=== PATIENT | male | born 1980 | race Caucasian/White ===

== ENCOUNTER → 2021-03-03 11:00 | Outpatient (CLI) | payer OTHER, SELFPAY | PROVIDERS: Visit Provider Nurse Practitioner | DX: U07.1 COVID-19 (principal) | CPT/HCPCS: C9803; U0003; U0005 ==

== ENCOUNTER 2023-01-05 10:06 | Emergency (ER) | payer OTHER, SELFPAY ==
[2023-01-05 10:20] VITALS: BP 160/100; PULSE 100; RESP 18; TEMP 36.8; O2SAT 95; BMI 30.8
--- NOTE | 2023-01-05 10:23 | EXP.UTC ---
Discharge Plan Disposition Patient Disposition: Home, Self-Care Condition: Good Prescriptions Prescriptions: No Action No Known Home Medications Referrals Follow up/Referrals: Provider,Referral, MD [Primary Care Provider] - See instructions Activity Restrictions/Add. Instructions Additional Instructions/Restrictions: If the site starts to bleed again, please return here. Follow up with your primary care provider as we discussed. Make sure you discuss your elevated blood pressure with them when you are there. GO TO THE ER FOR ANY WORSENING SYMPTOMS Clinical Impressions Clinical Impression: Skin lesion Instructions Patient Instructions: Apoplexy Discharge ED Provider: Liu Lopez [facility] [place] HPI General Stated complaint: spot on nose that won't stop bleeding Time Seen by Provider: 01/05/23 10:23 History of Present Illness Provider Complaint: He has a spot on his nose that start out like a pimple 2 days ago. He picked at it and removed the scab. He states that he came in to have it cauterized. Related Data Home Medications Medication Instructions Recorded Confirmed No Known Home Medications 01/05/23 01/05/23 Allergies Allergy/AdvReac Type Severity Reaction Status Date / Time amoxicillin Allergy Verified 01/05/23 09:31 [facility] Disclaimer: The information contained in this section may have been updated after the patient was seen, as this information can be updated by other users. Medical History (Updated 01/05/23 @ 11:00 by Liu Lopez APRN) No pertinent past medical history Surgical History (Updated 01/05/23 @ 09:33 by Hiral Henley MA) No pertinent past surgical history Family History Family/Other No significant family history Social History Smoking Status: Never smoker alcohol intake: current current occupational status: employed Travel in the last 8 weeks: None household members: family housing: house ROS Obtained: Yes All systems reviewed & no additional complaints except as documented Constitutional Constitutional: Denies chills and Denies fever(s) Eyes Eyes: Denies eye discharge ENT Ears, Nose, Mouth, and Throat: Denies dizziness, Denies otalgia and Denies sore throat Cardiovascular Cardiovascular: Denies chest pain Respiratory Respiratory: Denies shortness of breath, Denies chest congestion, Denies cough, Denies stridor and Denies wheezing Gastrointestinal Gastrointestingal: Denies nausea or vomiting Musculoskeletal Musculoskeletal: Reports system reviewed and no additional complaints, except as documented and Denies arthralgias Integumentary/Breasts Skin/Breast: Reports as per HPI Neurologic Neurologic: Denies dizziness and Denies paresthesias Allergic/Immunologic Allergic/Immunologic: Denies wheezing Physical Exam General General appearance: alert and in no apparent distress Head Head exam: atraumatic, normocephalic and normal inspection Eye Eye exam: Present normal appearance, PERRL and EOMI ENT ENT exam: Present normal exam, normal oropharynx, mucous membranes moist, TM's normal bilaterally and normal external ear exam Neck Neck exam: Present normal inspection, full ROM and trachea midline; Absent meningismus or lymphadenopathy Chest Chest inspection: Present normal inspection and symmetric chest wall rise; Absent tenderness Respiratory Respiratory exam: Present normal lung sounds bilaterally; Absent respiratory distress Cardiovascular Cardiovascular exam: Present regular rate and normal rhythm; Absent JVD Abdominal Exam Abdominal exam: Present soft and normal bowel sounds; Absent distention, tenderness or guarding Extremities Exam Extremities exam: Present normal inspection, full ROM and normal capillary refill; Absent calf tenderness Back Exam Back exam: Present normal inspection; Absent tenderness Neurologi
[2023-01-05 11:03] VITALS: BP 160/100; PULSE 100; RESP 18; TEMP 36.8; O2SAT 95
== END 2023-01-05 11:08 | disposition home or self-care (01) ==
PROVIDERS: Emergency Provider Nurse Practitioner Family
DX: L98.9 Disorder of the skin and subcutaneous tissue, unspecified (principal)
CPT/HCPCS: 99203; 99212; G0463

== ENCOUNTER 2024-12-11 14:00 | Outpatient (RCR) | payer OTHER, SELFPAY ==
--- NOTE | 2024-11-25 07:48 | HMH.PTOPEV ---
PT Evaluation Rehab PT Outpatient Evaluation Start: 11/24/24 13:00 Freq: Status: Active Protocol: Document 11/24/24 13:01 KOURTNEY (Rec: 11/24/24 14:17 KOURTNEY [id number]) E-signed By Monica Sandoval, PT Outpatient Therapy Subjective History Subjective History This is an initial PT evaluation for 44 y/o male, Cesar Tay, who presents to [facility] rehab with referral for weakness. Pt is currently on the liver transplant list at . Pt has had weakness complaints for ~3 months. Pt's goal is to get stronger for a possible liver transplant. Pt reports he feels unsteady on his feet especially when getting up in morning. Pt reports 2 falls prior to last hospital admission. Pt reports a general loss in muscle mass and more difficulty standing. Pt reports he has been walking around the house as much as able. Pt reports he was at [facility] for ~1 week after his last hospital admission in which he worked on general strengthening and balance. Pt reports he still needs to work on those deficits. Pt also reports impaired endurance. In regards to lab work, pt does not know his most recent blood work numbers (Hgb, Hct, and platelets). Pt reports he receives blood work tomorrow at and will provide those results prior to first session. Pt reports he is getting and endoscopy and colonoscopy this week as well . 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 Cheif complaint: Impaired strength, endurance, and balance. New diagnosis of No cancer in past 12 months? Chief Complaint Weakness Prior Functional None Limitations Current Functional Lifting,Dressing,Standing,Squatting,Recreation Activity Limitations ,Walking,Stairs,Balance Shoulder/Elbow Eval Shoulder Objective Measurements Shoulder MMT Bilateral Anterior Deltoid 4 Good Strength Grade Upper Trapezius/ 4 Good Levator Scapulae Shoulder Horizontal 4 Good Abduction Strength Grade Shoulder Horizontal 4 Good Adduction Strength Grade Elbow Objective Measurements Hip/Knee Eval Assistive Device Assistive Devices None / NA MMT bilateral Hip Flexion Strength 4- Good- Grade Hip Abduction 4- Good- Strength Grade Hip Adduction 4- Good- Strength Grade Hip Extension 4- Good- Strength Grade Knee Extension 4- Good- Strength Grade Knee Flexion 4- Good- Strength Grade Dynamic Gait Index Test Protocol Gait Level Surface Mild Impairment Query Text: Instructions: Walk at your normal speed from here to the next joaquin (20'). Grading: Joaquin the lowest category that applies. Change in Gait Speed Moderate Impairment Query Text: Instructions: Begin walking at your normal pace (for 5') , when I tell you go , walk as fast as you can (for 5'). When I tell you slow , walk as slowly as you can ( for 5'). Grading: Joaquin the lowest category that applies. Gait with Horizontal Mild Impairment Head Turns Query Text: Instructions: Begin walking at your normal pace. When I tell you to look right , keep walking straight, but turn you head to the right. Keep looking to the right unit I tell you look left , then keep walking straight and turn your head to the left. Keep your head to the left until I tell you look straight , then keep walking straight, but return you head to the center. Grading: Joaquin the lowest category that applies. Gait with Vertical Mild Impairment Head Turns Query Text: Instructions: Begin walking at your normal pace. When I tell you to look up , keep walking staight, but tip your head up. Keep looking up until I tell you to look down , then keep walking straight and tip your head down. Keep your head down until I tell you look straight , then keep walking straight, but return your head to the center. Grading: Joaquin the lowest category that applies. Gait and Pivot Turn Mild Impairment Query Text: Instructions: Begin walking at your normal pace. When I tell you turn and stop , turn as quickly as you can to face the opposite direction and stop. Grading: Joaquin the lowest category that applies. Step Over Obstacle Mild Impairment Query Text: Instructions: Begin walking at your normal speed. When you come to the shoebox, step over it, not around it and keep walking. Grading: Joaquin the lowest category that applies. Step Around Mild Impairment Obstacles Query Text: Instructions: Begin walking at normal speed. When you come to the first cone (about 6' away) , walk around the right side of it. When you come to the second cone (6' past first cone), walk around it to the left. Grading: Joaquin the lowest category that applies. Steps Moderate Impairment Query Text: Instructions: Walk up these stairs as you would at home. At the top, turn around and walk down . Grading: Joaquin the lowest category that applies. Scoring Dynamic Gait Index 14 Score Miscellaneous Dx PT Eval Objective Objective 2 minute walk test: 312 feet/95 meters TU seconds 5xSTS: 15 seconds with UE use. DGI: 14 points without AD Tandem stance: - able to hold bilaterally for 20 seconds with min-no UE support Outpatient Therapy Assessment Impairments Problems/ Impaired Strength,Impaired Endurance,Impaired Transfers Impairmments ,Impaired Gait Pattern,Impaired Walking,Impaired Standing,Impaired Stair Climbing,Impaired Stepping on Uneven Surface,Impaired Squatting,Impaired Recreational Activities,Impaired Balance Prognosis Rehab Potential Good Comment Pt presents with impaired endurance, strength, and gait . Pt would benefit from skilled OP PT to address deficits and achieve goals. PT POC to include BLE/BUE strengthening, aerobic exercise, core strengthening, and balance training. *PT held giving HEP this date d/t awaiting most recent blood lab results. PT to provide HEP at first session once PT has assessed pt's tolerance to therex interventions.* Clinical Impression Consistent with Yes Diagnosis PT Patient Goals PT Patient Goals PT Short Term In 4 weeks, pt will: Patient Goals 1) Verbalize IND with HEP. 2) Improve BLE and BUE strength by 1/5 MMT grade to improve functional strength. 3) Tolerate one 10 min moderate intensity endurance task (ex: bike) 4) Perform 5 x STS in 12 seconds or less 5) Improve DGI by 1 point to improve safety with gait. 6) Verbalize feeling at least 40% stronger since IE 7) Improve 2 min walk test to at least 400ft/121 meters PT [facility] Patient In 8 weeks, pt will: Goals 1) Verbalize adherence with home exercise program to maximize self-maintenance of symptoms upon d/c from PT POC. 2) Improve BLE and BUE strength to 5/5 MMT grade to improve daily functioning. 3) Tolerate one 15 min moderate intensity endurance task (ex: bike) 4) Improve DGI to score of 18 points to improve ambulation safety. 5) Improve TUG time to 12 seconds or less. 6) Verbalize feeling at least 85% improved in strength/ endurance since IE. 7) Improve 2 min walk test to at least 500ft/152meters Outpatient Therapy Plan of Care Treatment Plan May Include Therapeutic Exercise Yes Including Home Exercise Program Neuromuscular Re- Yes education Therapeutic Yes Activities to Return to Previous Functional/Work Level Gait Training Yes ADL/Self Care Yes Education Eval/Re-Eval Yes Frequency Times per week 2x weekly Duration Number of Weeks 6-8 weeks Addendums This patient is a No candidate for social or vocational rehab ? Patient/Guardian Yes verbally acknowledges understanding of treatment program and consents to further treatment? Patient/Guardian Yes verbally acknowledges understanding of diagnosis, prognosis and goals for treatment? Eval Complexity PT Charges 29378 - Moderate Complexity PHYSICIAN CERTIFICATION: I certify the specified therapy services for Cesar Tay are required, authorized, and reviewed every 30 days.
== END 2024-12-11 23:59 | disposition home or self-care (01) ==
LOC: PT 14:00
PROVIDERS: PCP Internal Medicine; Visit Provider Internal Medicine
DX: R53.1 Weakness (principal)
CPT/HCPCS: 97110; 97162; 97530

== ENCOUNTER 2024-12-26 14:00 | Outpatient (RCR) | payer OTHER, SELFPAY | END 2024-12-26 23:59 | disposition home or self-care (01) | LOC: PT 14:00 | PROVIDERS: PCP Internal Medicine; Visit Provider Internal Medicine | DX: R53.1 Weakness (principal) ==

== ENCOUNTER 2025-01-23 06:54 | Outpatient (CLI) | payer OTHER, SELFPAY ==
--- OUTSIDE RECORDS SUMMARY | 2024-11-25 10:30 | XMS_ITS | Encounter Summary ---
Author Organization Healthcare Address [address] [place] [address] Care Team Providers Care Night Court Magistrate Name Role Phone Pcp, No Primary Care Provider Unavailabl e Reason for Visit * Reason Comments Pre-Liver Txp Follow-up Encounter Details Date Type Department Care Team (Latest Contact Info) Description 11/25/2024 11:30 AM EDT Office Visit [facility] [address] [facility] [address] [place] [address] Miquel Lopez MD [address] [place] [address] Decompensation of cirrhosis of liver (CMS/HCC) (Primary Dx); Portal hypertension (CMS/HCC); Tobacco use disorder, continuous; Severe alcohol use disorder, in sustained remission; Spontaneous bacterial peritonitis Social History Tobacco Use Types Packs/Day Years Used Date Smoking Tobacco: Never Passive Smoke Exposure: Current Smokeless Tobacco: Current Chew Alcohol Use Standard Drinks/Week Comments Not Currently 4 (1 standard drink = 0.6 oz pur e alcohol) Quit 2 months ago PHQ-2 Answer Date Recorded Patient Health Questionnaire-2 Score 2 11/25/2024 PHQ-9 Answer Date Recorded Patient Health Questionnaire-9 Score 9 11/25/2024 Humiliation, Afraid, Rape, and Kick questionnair e Answer Date Recorded Within the last year, have y ou been afraid of your partner or ex-partner? No 10/20/2024 Within the last year, have y ou been humiliated or emotionally abused in other ways by your partner or ex-partner? No Within the last year, have y ou been kicked, hit, slapped, or otherwise physically hurt by your partner or ex-partner? No 10/20/2024 Within the last year, have y ou been raped or forced to have any kind of sexual activity by your partner or ex-partner? No 10/20/2024 Hunger Vital Sign Answer Date Recorded Within the past 12 months, y ou worried that your food would run out before you got the money to buy more. Sometimes true Within the past 12 months, t he food you bought just didn't last and you didn't have money to get more. Sometimes true 09/2024 PRAPARE - Transportation Answer Date Re corded In the past 12 months, has l ack of transportation kept you from medical appointments or from getting medications? No 09/2024 In the past 12 months, has l ack of transportation kept you from meetings, work, or from getting things needed for daily living? No 10/20/2024 Housing Stability Vital Sign Answer Virgilio e Recorded In the last 12 months, was t here a time when you were not able to pay the mortgage or rent on time? Yes 10/20/2024 In the past 12 months, how m any times have you moved where you were living? 0 10/20/2024 At any time in the past 12 m [place], were you homeless or living in a jail (including now)? No 10/20/2024 [facility] Utilities Answer Date Recorded In the past 12 months has th e [employer], gas, oil, or water [employer] threatened to shut off services in your home? Yes 10/20/2024 Sex and Gender Information Value Date Recorded Sex Assigned at Not on file Legal Sex Male 2:45 PM EDT Gender Identity Not on file Sexual Orientation Not on file documented as of this encounter Last Filed Vital Signs Vital Sign Reading Time Taken Comments Blood Pressure 123/64 11/25/2024 10:53 AM EDT standing 120/69 Pulse 73 11/25/2024 10:53 AM EDT Temperature 36.6 C (97.8 F) 11/25/2024 10:53 AM EDT Respiratory Rate 16 11/25/2024 10:5 3 AM EDT Oxygen Saturation 100% 11/25/2024 10: 53 AM EDT Inhaled Oxygen Concentration - - Weight 99 kg (218 lb 4.1 oz) 11/25/2024 10:53 AM EDT Height 188 cm (6' 2 ) 11/25/2024 10:53 AM EDT Body Mass Index 28.02 11/25/2024 10:53 AM EDT documented in this encounter Functional Status * Over the past 2 weeks, how often have you been bothered by any of the following problems? Question Answer Date of Assessment Author Little interest or pleasure in doing things Several days 11/25/2024 11:02 AM EDT Buddy Garcia Feeling down, depressed, or hopeless Several days 11/25/2024 11:02 AM EDT Buddy Garcia Patient Health Questionnaire -2 Score 2 11/25/2024 11:02 AM EDT Buddy Garcia * Question Answer Date of Assessment Author Trouble falling or staying asleep, or sleeping too much Nearly every day 11/25/2024 11:02 AM EDT Buddy Garcia Feeling tired or having little energy Several days 11/25/2024 11:02 AM Buddy Lucero Poor appetite or overeating Not at all 11/25/2024 11 :02 AM EDBuddy Moreno A Feeling bad about yourself - or that you are a failure or have let yourself or your family down Not at all 11/25/2024 11:02 AM Buddy Lucero Trouble concentrating on things, such as reading the newspaper or watching television Not at all 11/25/2024 11:02 AM Buddy Lucero A Moving or speaking so slowly that other people could have noticed. Or the opposite - being so fidgety or restless that you have been moving around a lot more than usual Nearly every day 11/25/2024 11:02 AM TRAVT Buddy Garcia Thoughts that you would be better off or hurting yourself in some way Not at all 11/25/2024 11:02 AM EDBuddy Moreno Patient Health Questionnaire-9 Score 9 11/25/2024 11:02 AM EDT Buddy Garcia * How difficult have these problems made it for you to do your work, take care of things at home, or get along with other people? Answer Date of Assessment Author Somewhat difficult 11/25/2024 11:02 AM EDT Buddy Robin documented as of this encounter Miscellaneous Notes * Progress Notes - Alena Lee MBBS - 11/25/2024 11:30 AM EDT Subjective Patient ID: Cesar Tay is a 44 y.o. male. HPI Patient is a 44-year-old male with a history of Cirrhosis/severe alcohol-related hepatitis presenting today for follow up. Patient has a longstanding history of alcohol abuse. Drinking approximately 1/5th [place] everyday for the 5 years. Last drink 80 days ago. August 15 2024. TIn January 2024, the patient was hospitalized due to jaundice and was diagnosied with alcohol induced hepatitis. Patient was again diagnosed with cirrhosis/severe alcohol-related hepatitis 3 months ago when he presented with jaundice and ascites. Meld score initial presentation was 28. Also found to be anemic with hemoglobin 6.4. Noted to have received 4 units PRBC at [facility]. Likely in the setting of hemoperitoneum. Does have a history of SBP diagnosed at [facility]. Was on Rocephin. Subsequently discharged on ciprofloxacin for SBP prophylaxis. Underwent rapid transplant evaluation in patient. Patient was discharged on 10/24/2024 with a meld score of 28 on Coreg 6.25 mg twice daily and Lasix 20 mg per day along with spironolactone 50 mg perday. Ciprofloxacin for that secondary SBP prophylaxis. Patient is still on Dip and plans to stop 11/29. He has been started on Wellbutrin bid for the same. Denies paracentesis since a month, overt bleeding or confusion. Alcohol related hepatitis -Yes Alcohol counseling - yes, going to [facility] Legal issues - Yes Decompensation Ascites yes, on lasix 20 gm/day and spironolactone 50 mg/day - SBP: Yes, on Ciprofloxacin - LVP: Yes Last paracentesis was last month Variceal bleeding - Never HE- Never Past medical hx Alcohol use disorder Surgical hx Reviewed, non contributory Family hx Reviewed, non contributory Social hx Lives with . She is going to be primary caregiver. Alcohol: As above. Smoking: Tobacco use, dipping. Drugs/Substances: None The following portions of the chart were reviewed this encounter and updated as appropriate: Tobacco Allergies Meds Problems Med Hx Surg Hx Fam Hx Review of Systems 14 point ROS negative except for HPI Objective Visit Vitals BP 123/64 (Patient Position: Sitting) Comment: standing 120/69 Pulse 73 Temp 36.6 ??C (97.8 ??F) Ht 1.88 m (6' 2 ) Wt 99 kg (218 lb 4.1 oz) SpO2 100% BMI 28.02 kg/m?? Physical Exam Constitutional: Appearance: Normal appearance. He is normal weight. HENT: Head: Normocephalic and atraumatic. Eyes: General: Scleral icterus present. Conjunctiva/sclera: Conjunctivae normal. Pulmonary: Effort: Pulmonary effort is normal. No respiratory distress. Breath sounds: Normal breath sounds. No wheezing. Abdominal: General: There is no distension. Skin: Coloration: Skin is jaundiced. Neurological: General: No focal deficit present. Mental Status: He is alert and oriented to person, place, and time. Mental status is at baseline. Current Medications[1] Laboratory values CBC: WBC Count Date/Time Value Ref Range Status 11/25/2024 09:50 AM 3.46 (L) 3.70 - 10.30 10*3/uL Final 11/11/2024 08:56 AM 3.10 (L) 3.70 - 10.30 10*3/uL Final 10/23/2024 02:51 AM 5.53 3.70 - 10.30 10*3/uL Final HGB Date/Time Value Ref Range Status 11/25/2024 09:50 AM 7.5 (L) 13.7 - 17.5 g/dL Final 11/11/2024 08:56 AM 8.1 (L) 13.7 - 17.5 g/dL Final 10/23/2024 02:51 AM 7.3 (L) 13.7 - 17.5 g/dL Final 10/23/2024 02:51 AM 7.3 (L) 13.7 - 17.5 g/dL Final HCT Date/Time Value Ref Range Status 11/25/2024 09:50 AM 23.9 (L) 40.0 - 51.0 % Final 11/11/2024 08:56 AM 26.4 (L) 40.0 - 51.0 % Final 10/23/2024 02:51 AM 22.9 (L) 40.0 - 51.0 % Final 10/23/2024 02:51 AM 22.9 (L) 40.0 - 51.0 % Final Platelet Count Date/Time Value Ref Range Status 11/25/2024 09:50 AM 95 (L) 155 - 369 10*3/uL Final 11/11/2024 08:56 AM 100 (L) 155 - 369 10*3/uL Final 10/23/2024 02:51 AM 88 (L) 155 - 369 10*3/uL Final CMP: Sodium, Plasma Date/Time Value Ref Range Status 11/25/2024 09:50 AM 134 (L) 136 - 145 mmol/L Final 11/11/2024 08:56 AM 136 136 - 145 mmol/L Final 10/23/2024 02:51 AM 137 136 - 145 mmol/L Final Potassium, Plasma Date/Time Value Ref Range Status 11/25/2024 09:50 AM 4.4 3.6 - 4.9 mmol/L Final 11/11/2024 08:56 AM 4.0 3.6 - 4.9 mmol/L Final 10/23/2024 02:51 AM 3.4 (L) 3.6 - 4.9 mmol/L Final Chloride, Plasma Date/Time Value Ref Range Status 11/25/2024 09:50 AM 105 97 - 107 mmol/L Final 11/11/2024 08:56 AM 106 97 - 107 mmol/L Final 10/23/2024 02:51 AM 108 (H) 97 - 107 mmol/L Final CO2, Plasma Date/Time Value Ref Range Status 11/25/2024 09:50 AM 22 22 - 29 mmol/L Final 11/11/2024 08:56 AM 20 (L) 22 - 29 mmol/L Final 10/23/2024 02:51 AM 18 (L) 22 - 29 mmol/L Final BUN, Plasma Date/Time Value Ref Range Status 11/25/2024 09:50 AM 20 7 - 21 mg/dL Final 11/11/2024 08:56 AM 13 7 - 21 mg/dL Final 10/23/2024 02:51 AM 7 7 - 21 mg/dL Final Creatinine, Plasma Date/Time Value Ref Range Status 11/25/2024 09:50 AM 0.78 0.70 - 1.20 mg/dL Final 11/11/2024 08:56 AM 0.77 0.70 - 1.20 mg/dL Final 10/23/2024 02:51 AM 0.65 (L) 0.70 - 1.20 mg/dL Final Total Calcium, Plasma Date/Time Value Ref Range Status 11/25/2024 09:50 AM 8.8 (L) 8.9 - 10.2 mg/dL Final 11/11/2024 08:56 AM 8.5 (L) 8.9 - 10.2 mg/dL Final 10/23/2024 02:51 AM 7.6 (L) 8.9 - 10.2 mg/dL Final Total Bilirubin, Plasma Date/Time Value Ref Range Status 11/25/2024 09:50 AM 14.6 (H) 0.2 - 1.1 mg/dL Final 11/11/2024 08:56 AM 13.9 (H) 0.2 - 1.1 mg/dL Final 10/23/2024 02:51 AM 14.7 (H) 0.2 - 1.1 mg/dL Final Alkaline Phosphatase, Plasma Date/Time Value Ref Range Status 11/25/2024 09:50 AM 116 (H) 40 - 115 U/L Final 11/11/2024 08:56 AM 108 40 - 115 U/L Final 10/23/2024 02:51 AM 116 (H) 40 - 115 U/L Final ALT, Plasma Date/Time Value Ref Range Status 11/25/2024 09:50 AM 19 10 - 50 U/L Final 11/11/2024 08:56 AM 20 10 - 50 U/L Final 10/23/2024 02:51 AM 20 10 - 50 U/L Final AST, Plasma Date/Time Value Ref Range Status 11/25/2024 09:50 AM 50 10 - 50 U/L Final 11/11/2024 08:56 AM 52 (H) 10 - 50 U/L Final 10/23/2024 02:51 AM 70 (H) 10 - 50 U/L Final Comment: Hemolyzed, result may be falsely increased. Glucose, Plasma Date/Time Value Ref Range Status 11/25/2024 09:50 AM 85 74 - 99 mg/dL Final 11/11/2024 08:56 AM 97 74 - 99 mg/dL Final 10/23/2024 02:51 AM 90 74 - 99 mg/dL Final Imaging/Radiology No images are attached to the encounter or orders placed in the encounter. Assessment/Plan 1. Severe AH/Decompensated alcohol related cirrhosis MELD 3.0: 29 at 11/25/2024 9:50 AM MELD-Na: 28 at 11/25/2024 9:50 AM Calculated from: Serum Creatinine: 0.78 mg/dL (Using min of 1 mg/dL) at 11/25/2024 9:50 AM Serum Sodium: 134 mmol/L at 11/25/2024 9:50 AM Total Bilirubin: 14.6 mg/dL at 11/25/2024 9:50 AM Serum Albumin: 2.7 g/dL at 11/25/2024 9:50 AM INR(ratio): 2.5 at 11/25/2024 9:50 AM Age at listing (hypothetical): 44 years Sex: Male at 11/25/2024 9:50 AM Undergoing eval for OLT Pending SW clearance Pending tobacco cessation, planning quitting 11/29, following with teacher selection specialist, started onWelbutrin. Complications of liver disease include: Ascites, SBP History of: AUD Chemical dependency:tobacco smoking. Counseled on the nature, symptoms & signs, and complications of cirrhosis. Advised to avoid NSAIDS, can take acetaminophen but not to exceed 2000 mg a day. # Ascites / pedal edema: LVP: None SBP: Yes NINA: Never Diuretics - currently on Furosemide 20 mg /day and spironolactone 50 mg/day ---- continue with the current dose, mistakenly took 40+60 of lasix for a few days [facility] On ciprfloxacin 500 mg/day for secondary SBP ppx. Suggest strict 2 gm /day salt diet check for BUN /creatinine and electrolytes with labs # Hepatic Encephalopathy: Not an issue right now. # Esophageal varices screening- No prior EGD EGD ordered previously, pending scheduling On Coreg 6.25 mg BID. Educated on S/S of GI bleed and advised to go to ER if any occurs. # HCC surveillance: CT abd w IV contrast 10/2024: no suspicious liver lesions. Wedge-shaped hyperenhancement in the lefthepatic lobe favoring transient hepatic attenuation differences. AFP - WNL Lab Results Component Value Date AFP <2.3 10/20/2024 Continue Q6 monthly surveillance protocol. 2. Tobacco chewing Continues to chew tobacco. Following with [facility] clinic. On Wellbutrin, planning quitting 11/29 3. Nutritional counseling.-- Counseled on the importance of increasing protein intake, advised to get 1.2-1.5 gram/kg a day. Advsied to take late night snack. Health Maintenance: Immune to Hep A Needs Hep B vaccination. Dose 1 given Colonoscopy: previously ordered, pending scheduling. RTC in 2 weeks. Miquel Lopez MD [1] Current Outpatient Medications: buPROPion SR (Wellbutrin SR) 150 MG 12 hr tablet, Take 1 tablet by mouth daily for 3 days, THEN 1 tablet 2 times a day. Do not crush, chew, or split., Disp: 123 tablet, Rfl: 1 ciprofloxacin (Cipro) 500 MG tablet, Take 1 tablet by mouth daily., Disp: 30 tablet, Rfl: 2 furosemide (Lasix) 20 MG tablet, Take 1 tablet by mouth daily., Disp: 90 tablet, Rfl: 3 traZODone (Desyrel) 50 MG tablet, Take 0.5 tablets by mouth nightly., Disp: 45 tablet, Rfl: 1 carvedilol (Coreg) 6.25 MG tablet, Take 1 tablet by mouth 2 times a day., Disp: 60 tablet, Rfl: 3 escitalopram (Lexapro) 10 MG tablet, Take 0.5 tablets by mouth daily., Disp: 15 tablet, Rfl: 3 lactulose (Chronulac) 10 GM/15ML solution, Take 15 mL by mouth 3 times a day., Disp: 1350 mL, Rfl: 3 pantoprazole (Protonix) 40 MG EC tablet, Take 1 tablet by mouth daily. Do not crush, chew, or split., Disp: 30 tablet, Rfl: 3 spironolactone (Aldactone) 50 MG tablet, Take 1 tablet by mouth daily., Disp: 30 each, Rfl: 3 Cosigned by Miquel Lopez MD at 11/27/2024 2:44 PM EDT Associated attestation - Miquel Lopez MD - 11/27/2024 2:44 PM EDT I saw and evaluated the patient with the resident/fellow. I discussed the case with the resident/fellow and agree with the findings and plan as documented. Miquel Lopez MD documented in this encounter Plan of Treatment Upcoming Encounters Date Type Department Care Team (Late st Contact Info) Description 01/23/2025 8:40 AM EST Office Visit [facility] [address] [place] [address] [id number]-Fcy rosemary-Paul 03/06/2025 11:10 AM EST Appointment [facility] [address] [place] [address] Natalya Valentine MD [address] [place] [address] documented as of this encounter Visit Diagnoses Diagnosis Decompensation of cirrhosis of liver (CMS/HCC)- Primary Portal hypertension (CMS/HCC) Portal hypertension Tobacco use disorder, continuous Tobacco use disorder Severe alcohol use disorder, in sustained remission Spontaneous bacterial peritonitis documented in this encounter Additional Health Concerns Infection Onset Date Last Indicated Resolved Time C. difficile 11/04/2024 11/04/2024 12/18/2024 7:20 PM EST Assessment Noted Time PHQ-9 Depression Total Score: 9 11/26/19 11:02 AM EDT A fall risk assessment has been complete d for the patient 11/25/2024 11:01 AM EDT A Body Mass Index follow-up plan has been documented for the patient 11/25/2024 12:01 PM EDT documented as of this encounter Care Teams Night Court Magistrate Relationship Specialty Start Date End Date Pcp, Smiley [address] [place] [address] PCP - General Family Medicine 10/20/23 12/21/24 documented as of this encounter
--- OUTSIDE RECORDS SUMMARY | 2024-12-03 07:00 | XMS_ITS | Encounter Summary ---
Author Organization Healthcare Address [address] [place] [address] Care Team Providers Care Editorial Cartoonist Name Role Phone Pcp, No Primary Care Provider Unavailabl e Reason for Visit * Reason Comments Pre-Liver Txp Follow-up Encounter Details Date Type Department Care Team (Latest Contact Info) Description 12/03/2024 8:00 AM EDT Office Visit [facility] [address] [facility] [address] [place] [address] Brionna Martinez, CRISTAL [address] [facility] [address] [place] [id number] Hepatic encephalopathy (CMS/HCC) (Primary Dx); Decompensation of cirrhosis of liver (CMS/HCC); Anemia, unspecified type Social History Tobacco Use Types Packs/Day Years Used Date Smoking Tobacco: Never Passive Smoke Exposure: Current Smokeless Tobacco: Current Chew Tobacco Cessation:Ready to Q uit: Not Asked; Counseling Given: Not Answered Alcohol Use Standard Drinks/Week Comments Not Currently 4 (1 standard drink = 0.6 oz pur e alcohol) Quit 2 months ago PHQ-2 Answer Date Recorded Patient Health Questionnaire-2 Score 0 12/03/2024 PHQ-9 Answer Date Recorded Patient Health Questionnaire-9 [...] any time in the past 12 m [facility], were you homeless or living in a retirement (including now)? No 10/20/2024 [facility] Utilities Answer Date Recorded In the past 12 months has th e [employer], gas, oil, or water [email or web address] threatened to shut off services in your home? Yes 10/20/2024 Sex and Gender Information Value Date Recorded Sex Assigned at Not on file Legal Sex Male 2:45 PM EDT Gender Identity Not on file Sexual Orientation Not on file documented as of this encounter Last Filed Vital Signs Vital Sign Reading Time Taken Comments Blood Pressure 136/74 12/03/2024 10:31 AM EDT Pulse 62 12/03/2024 10:31 AM EDT Temperature 36.6 C (97.8 F) 12/03/2024 10:31 AM EDT Respiratory Rate 18 12/03/2024 10:31 AM EDT Oxygen Saturation 100% 12/03/2024 10:31 AM EDT Inhaled Oxygen Concentration - - Weight 98.8 kg (217 lb 13 oz) 12/03/2024 10:31 A M EDT Height 188 cm (6' 2 ) 12/03/2024 10:31 AM EDT Body Mass Index 27.97 12/03/2024 10:31 AM EDT documented in this encounter Functional Status * Over the past 2 weeks, how often have you been bothered by any of the following problems? Question Answer Date of Assessment Author Little interest or pleasure in doing things Not at all 12/03/2024 10:37 AM EDT Sammi Salazar Feeling down, depressed, or hopeless Not at all 12/03/2024 10:37 AM EDT Sammi Salazar Patient Health Questionnaire -2 Score 0 12/03/2024 10:37 AM EDT Sammi Salazar * How difficult have these problems made it for you to do your work, take care of things at home, or get along with other people? Answer Date of Assessment Author Not difficult at all 12/03/2024 10:37 AM EDT Damien Shawn bernal documented as of this encounter Miscellaneous Notes * Progress Notes - Brionna Martinez PA - 12/03/2024 8:00 AM EDT Images from the original note were not included. Transplant Hepatology Note Patient is a 44-year-old male with a history of Cirrhosis/severe alcohol-related hepatitis presenting today for follow up. MELD 27 Accompanied by Patricia Not yet listed for OLT, eval complete Last seen 1 week ago Transplant Selection Committee review 12/01/24 -rtc one week; needs colonoscopy before listing; endo states pt not available until after 12/05 History of Present Illness Came to clinic today for labs and asked to see provider He reports an increase in tremors and instability, which he attributes to recent medication adjustments. Although he has not experienced any falls, he expresses concern about potential future incidents. Additionally, he mentions episodes of confusion, although he has not experienced disorientation regarding his identity or location. His proof technician corroborates these symptoms, noting that he appears more confused than he perceives himself to be. He continues to take lactulose, which has increased his bowel movements from 1 to 4 per day. He is also on diuretics. He has successfully quit dipping 4-5 days ago, no using a non-nicotine herbal substitute, and plans to gradually reduce his use of this substitute. He reports that his understanding from his last visit is that he does not require a colonoscopy or endoscopy for listing but intends to undergo these procedures before the age of 49. He has received a message from [place] to schedule these procedures. Liver history: Patient has a longstanding history of alcohol abuse. Drinking approximately 1/5th [place] everyday for the 5 years. Last drink 80 days ago. August 15 2024. TIn January 2024, the patient was hospitalized due to jaundice and was diagnosed with alcohol induced hepatitis. Patient was again diagnosed with cirrhosis/severe alcohol-related hepatitis ~August 2024 when he presented with jaundice and ascites. Meld score initial presentation was 28. Also found to be anemic with hemoglobin 6.4. [facility]ed to [facility]. Likely in the setting of hemoperitoneum. Does have a history of SBP diagnosed at [facility]. Was on Rocephin. Subsequently discharged on ciprofloxacin for SBP prophylaxis. Underwent rapid transplant evaluation in patient. Patient was discharged on 10/24/2024 with a meld score of 28 on Coreg 6.25 mg twice daily and Lasix 20 mg per day along with spironolactone 50 mg perday. Ciprofloxacin for that secondary SBP prophylaxis. Alcohol related hepatitis -Yes Alcohol counseling - yes, going to [facility] Legal issues - Yes Review of Systems A 14 point review of systems negative except for HPI Outpatient Medications Current Outpatient Medications Medication Instructions buPROPion SR (Wellbutrin SR) 150 MG 12 hr tablet Take 1 tablet by mouth daily for 3 days, THEN 1 tablet 2 times a day. Do not crush, chew, or split. carvedilol (COREG) 6.25 mg, Oral, 2 times daily ciprofloxacin (CIPRO) 500 mg, Oral, Daily escitalopram (LEXAPRO) 5 mg, Oral, Daily furosemide (LASIX) 20 mg, Oral, Daily lactulose (CHRONULAC) 10 g, Oral, 3 times daily nutrional drink glucose control (Boost Glucose Control) liquid liquid 237 mL, Oral, 2 times daily pantoprazole (PROTONIX) 40 mg, Oral, Daily, Do not crush, chew, or split. rifAXIMin (XIFAXAN) 550 mg, Oral, 2 times daily spironolactone (ALDACTONE) 50 mg, Oral, Daily traZODone (DESYREL) 25 mg, Oral, Nightly Allergies Allergies[1] Vaccinations Immunization History Administered Date(s) Administered HepB-CpG 11/25/2024 Vital Signs Visit Vitals BP 136/74 (BP Location: Left arm, Patient Position: Sitting, BP Cuff Size: Adult) Pulse 62 Temp 36.6 ??C (97.8 ??F) (Oral) Resp 18 Ht 1.88 m (6' 2 ) Wt 98.8 kg (217 lb 13 oz) SpO2 100% BMI 27.97 kg/m?? Smoking Status Never BSA 2.27 m?? Physical Exam General - jaundiced male in no acute distress. Appears stated age. HEENT - + scleral icterus, EOMI, atraumatic, normocephalic; ears located midway on head with normalappearance, nose midline without discharge. Cardiovascular - RRR without murmurs, rubs, or gallops; radial pulses 2+ bilaterally; no LE edema present Respiratory - respiratory rate even and non-labored; lungs clear to auscultation in all lung santana Gastrointestinal - bowel sounds present; soft, non-tender, mildly distended, resonant to percussion; no ascites noted; no hernias present; liver and spleen not felt Dermatologic - + jaundice, spider angiomata, or palmar erythema. Warm and dry to palpation. No clubbing MSK - no deformities noted; no edema or erythema of joints visible, normal gait and station Neuro - + asterixis present, oriented to time and place. Psychiatric - pleasant, calm, cooperative. Labs MELD 3.0: 27 at 12/03/2024 9:35 AM MELD-Na: 26 at 12/03/2024 9:35 AM Calculated from: Serum Creatinine: 0.79 mg/dL (Using min of 1 mg/dL) at 12/03/2024 9:35 AM Serum Sodium: 137 mmol/L at 12/03/2024 9:35 AM Total Bilirubin: 14.2 mg/dL at 12/03/2024 9:35 AM Serum Albumin: 3 g/dL at 12/03/2024 9:35 AM INR(ratio): 2.4 at 12/03/2024 9:35 AM Age at listing (hypothetical): 44 years Sex: Male at 12/03/2024 9:35 AM AFP Lab Results Component Value Date/Time AFP <2.3 10/20/2024 1534 HgB Lab Results Component Value Date/Time HGB 7.3 (L) 12/03/2024 0935 HGB 7.5 (L) 11/25/2024 0950 WBC Lab Results Component Value Date/Time WBC 3.73 12/03/2024 0935 WBC 3.46 (L) 11/25/2024 0950 A1c Lab Results Component Value Date/Time HGBA1C <4.0 10/21/2024 0059 Lab Results Component Value Date/Time AST 59 (H) 12/03/2024 0935 ALT 24 12/03/2024 0935 ALKPHOS 140 (H) 12/03/2024 0935 BILITOT 14.2 (H) 12/03/2024 0935 INR 2.4 (H) 12/03/2024 0935 ALBUMIN 3.0 (L) 12/03/2024 0935 CREATININE 0.79 12/03/2024 0935 AFP <2.3 10/20/2024 1534 Lab Results Component Value Date/Time HGB 7.3 (L) 12/03/2024 0935 WBC 3.73 12/03/2024 0935 PLT 97 (L) 12/03/2024 0935 Hepatitis Serologies Lab Results Component Value Date/Time HEPBSAG Negative 10/20/2024 1534 HECG Negative 10/20/2024 1534 HAG Positive (A) 10/20/2024 1534 Work-up Labs Lab Results Component Value Date/Time FERRITIN 102 10/20/2024 1534 TIBC 111 (L) 10/20/2024 0417 AAT 116 10/20/2024 1534 CERULOPLSM 16 (L) 10/20/2024 1534 HGBA1C <4.0 10/21/2024 0059 CHOL 83 10/20/2024 0417 LDLCALC 40 10/20/2024 0417 HDL 27 (L) 10/20/2024 0417 TRIG 72 10/20/2024 0417 TSH 2.46 10/20/2024 0417 Assessment and Plan Problem List Items Addressed This Visit Decompensation of cirrhosis of liver (CMS/HCC) Anemia Other Visit Diagnoses Hepatic encephalopathy (CMS/HCC) - Primary Relevant Medications rifAXIMin (Xifaxan) 550 MG tablet Patient is a 44-year-old male with a history of Cirrhosis/severe alcohol-related hepatitis presenting today for follow up. MELD 27 Accompanied by Patricia Not yet listed for OLT, eval complete # Decompensated alcohol related cirrhosis Complications of liver disease include: Ascites, SBP, HE History of: AUD --Transplant Selection Committee review 12/01/24 -rtc one week; needs colonoscopy before listing; endo states pt not available until after 12/05 --He reports that his understanding from his last visit is that he does not require a colonoscopy or endoscopy for listing; I discussed with patient that colonoscopy is required to complete given his44 at screening age; while upper endoscopy is not a requirement for listing, it should be completely given his anemia; encouraged to call and schedule --discussed MELD score --reports stopping chewing tobacco 4-5 days ago -- see below --avoid NSAIDs, AUNDREA-I/ARBs, CCBs, alcohol, can take tylenol <2000 mg/day # Ascites- stable, LE edema absent SBP?? Diuretics - currently on Furosemide 20 mg /day and spironolactone 50 mg/day ---- continue with the current dose, [facility] On ciprfloxacin 500 mg/day for secondary SBP ppx. Suggest strict 2 gm /day salt diet check for BUN /creatinine and electrolytes with labs # Hepatic Encephalopathy: On lactulose having average of 2-3 BM per day Reports more shakiness and imbalance today, has asterixis; caregiver reports more disorientation --educated on titrated lactulose to 3 Bm/day --start xifaxan 550 mg BID # Esophageal varices screening- No prior EGD [...] <2.3 10/20/2024 Continue Q6 monthly surveillance protocol. # Anemia, hgb 7.3 Required blood transfusion previous Iron 80 on 10/20/24 --EGD/Colon pending # Alcohol use disorder Seeing [facility] Last drink 08/15/24 Alc hep x2 # Tobacco chewing Following with [facility]. On Wellbutrin Reports stopping 4-5 days ago, now using nicotine and tobacco free chew with plan on tapering off # Malnutrition Prescribed boost Counseled on the importance of increasing protein intake, advised to get 1.2-1.5 gram/kg a day. Advsied to take late night snack. Health Maintenance: Immune to Hep A Needs Hep B vaccination. Dose 1 given 11/25/24 Colonoscopy: previously ordered, pending scheduling. Labs in 1 week RTC in 2 weeks. Verbal consent was obtained to use ambient listening technology to assist in the documentation of the encounter: YES A total of 46 minutes was spent on this patient encounter - educating patient, interpreting and discussing labs and imaging, impressions, prognosis, risks/benefits of current treatment options, risk factor reduction, instructions for management, and documentation. Care coordination provided included review and summary of medical records and additional diagnostic research, phone collaboration and consult with peers. [1] Allergies Allergen Reactions Amoxicillin Hives and Rash Childhood allergy documented in this encounter Plan of Treatment Upcoming Encounters Date Type Department Care Team (Late st Contact Info) Description 01/23/2025 8:40 AM EST Office Visit [facility] [address] [place] [id number] [id number] rosemary-Paul 03/06/2025 11:10 AM EST Appointment [facility] [address] [place] [id number] Natalya Valentine MD [address] [place] [address] documented as of this encounter Visit Diagnoses Diagnosis Hepatic encephalopathy (CMS/HCC)- Primary Hepatic encephalopathy Decompensation of cirrhosis of liver (CMS/HCC) Anemia, unspecified type documented in this encounter Additional Health Concerns Infection Onset Date Last Indicated Resolved Time C. difficile 11/04/2024 11/04/2024 12/18/2024 7:20 PM EST Assessment Noted Time PHQ-9 Depression Total Score: 9 11/26/19 11:02 AM EDT A fall risk assessment has been complete d for the patient 12/03/2024 10:37 AM EDT A Body Mass Index follow-up plan has been documented for the patient 12/03/2024 1:56 PM EDT documented as of this encounter Care Teams Editorial Cartoonist Relationship Specialty Start Date End Date Pcp, No [address] [place] [address] PCP - General Family Medicine 10/20/23 12/21/24 documented as of this encounter
--- OUTSIDE RECORDS SUMMARY | 2024-12-17 09:00 | XMS_ITS | Encounter Summary ---
Author Organization Healthcare Address [address] [place] [address] Care Team Providers Care Crayon Painter Name Role Phone Pcp, No Primary Care Provider Unavailabl e Reason for Visit * Auth/Cert (Routine) Specialty Diagnoses / Procedures Referred By Contac t Referred To Contact Diagnoses Anemia Symptomatic anemia Anemia, unspecified type Alcoholic cirrhosis, unspecified whether ascites present Hemoglobin 6.3 Leroy Aponte MD [address] [place] [address] Phone: tel: fax: [facility] Inpatient [address] [place] [address] Phone: tel: Referral ID Status Reason Start Date Expiration Date Visits Re quested Visits Authorized [id number] 1 1 Encounter Details Date Type Department Care Team (Latest Contact Info) Description 12/17/2024 9:00 AM EST Office Visit [facility] [address] [place] [address] Prieto Dillon MD [address] [place] [address] Decompensation of cirrhosis of liver (CMS/HCC) (Primary Dx); Hepatic encephalopathy (CMS/HCC); Severe alcohol use disorder, in sustained remission; Portal hypertension (CMS/HCC); Acute on chronic anemia; Symptomatic anemia Social History Tobacco Use Types Packs/Day Years [...] afraid of your partner or ex-partner? No 12/18/2024 Within the last year, have y ou been humiliated or emotionally abused in other ways by your partner or ex-partner? No Within the last year, have y ou been kicked, hit, slapped, or otherwise physically hurt by your partner or ex-partner? No 12/18/2024 Within the last year, have y ou been raped or forced to have any kind of sexual activity by your partner or ex-partner? No 12/18/2024 Hunger Vital Sign Answer Date Recorded Within the past 12 months, y ou worried that your food would run out before you got the money to buy more. Never true 12/19/19 25 Within the past 12 months, t he food you bought just didn't last and you didn't have money to get more. Never true 12/18/2024 PRAPARE - Transportation Answer Date Re corded In the past 12 months, has l ack of transportation kept you from medical appointments or from getting medications? No 07/2024 In the past 12 months, has l ack of transportation kept you from meetings, work, or from getting things needed for daily living? No 12/18/2024 Housing Stability Vital Sign Answer Virgiloi e Recorded In the last 12 months, was t here a time when you were not able to pay the mortgage or rent on time? No 12/18/2024 Number of Times Moved in the Last Year Not on fi le 12/18/2024 At any time in the past 12 m [facility], were you homeless or living in a prison (including now)? No 12/18/2024 [facility] Utilities Answer Date Recorded In the past 12 months has th e electric, gas, oil, or water [employer] threatened to shut off services in your home? No 12/18/2024 Sex and Gender Information Value Date Recorded Sex Assigned at Not on file Legal Sex Male 2:45 PM EDT Gender Identity Not on file Sexual Orientation Not on file documented as of this encounter Last Filed Vital Signs Vital Sign Reading Time Taken Comments Blood Pressure 131/67 12/17/2024 7:05 AM EST Pulse 79 12/17/2024 7:05 AM EST Temperature 36.8 C (98.2 F) 12/17/2024 7:05 AM EST Respiratory Rate 22 12/17/2024 7:05 AM EST Oxygen Saturation 99% 12/17/2024 7:05 AM EST Inhaled Oxygen Concentration - - Weight 110 kg (241 lb 10 oz) 12/17/2024 7:05 AM EST Height 188 cm (6' 2 ) 12/17/2024 7:05 AM EST Body Mass Index 31.02 12/17/2024 7:05 AM EST documented in this encounter Functional Status * Calculated C-SSRS Risk Score (Lifetime/Recent) Answer Date of Assessment Author No Risk Indicated 12/17/2024 10:21 AM EST Mirtha Pro RN * Question Answer Date of Assessment Author 1. Wish to be (Past 1 Month) No 12/17/2024 10:21 AM EST Maria Del Carmen Gamez RN 2. Non-Specific Active Suicidal Thoughts (Past 1 Month) No 12/17/2024 10:21 AM EST Maria Del Carmen Gamez RN 6. Suicidal Behavior (Lifetime) No 12/17/2024 10:21 AM EST Maria Del Carmen Gamez RN documented as of this encounter Miscellaneous Notes * Progress Notes - Prieto Dillon MD - 12/17/2024 9:00 AM EST Chief Complaint: Pre transplant follow up HPI: Mr. Tay is a 44 year old male with history significant for alcohol related cirrhosis decompensated with ascites, HE came to the clinic for follow up. He got evaluated and listing has not beendone due to pending colonoscopy. He is accompanied with his . He was last seen in clinic on 10/22/25. Since his last clinic visit, he has been having worsening fatigue, generalized weakness for the last few days. Of note, he hasbeen having anemia but our team was unable to reach him over the phone. He reports of receiving at least 6 transfusions in the last few months. He never had EGD or colonoscopy. He denies any overt GIbleeding signs. Patient reports that his Xifaxan was approved and has not received yet to start. Otherwise no new medications or changes in his medications. He is currently on Lasix 20 mg daily and spironolactone 50 mg daily. He continued to take carvedilol 6.25 mg twice daily. He takes Lactulose and is having atleast 2 BM daily. He has been off from smoking or dipping for 3 weeks. Otherwise he denies nausea or vomiting or abdominal pain or Jaundice or hematochezia or hematemesis or melena or altered sleep cycle or ED visits or Hospitalizations. Liver history: Patient has a longstanding history of alcohol abuse. Drinking approximately 1/5th [place] everyday for the 5 years. Last drink [...] Noted [facility]. Likely in the setting of hemoperitoneum. Does have a history of SBP diagnosed at [facility]. Was on Rocephin. Subsequently discharged on ciprofloxacin for SBP prophylaxis. Underwent rapid transplant evaluation in patient. Patient was discharged on 10/24/2024 with a meld score of 28 on Coreg 6.25 mg twice daily and Lasix 20 mg per day along with spironolactone 50 mg perday. Ciprofloxacin for that secondary SBP prophylaxis. Alcohol related hepatitis -Yes Alcohol counseling - yes, going to [facility] Legal issues - Yes Past Medical History[1] Surgical History[2] Allergies[3] Social History[4] Family History[5] ROS: All 14 point ROS are reviewed and are negative except for those mentioned above. Medications Ordered Prior to Encounter[6] Visit Vitals BP 131/67 (BP Location: Right arm, Patient Position: Sitting, BP Cuff Size: Adult) Pulse 79 Temp 36.8 ??C (98.2 ??F) (Oral) Resp 22 Ht 1.88 m (6' 2 ) Wt 110 kg (241 lb 10 oz) SpO2 99% BMI 31.02 kg/m?? Smoking Status Never BSA 2.4 m?? General: Age appropriate male sitting in chair not in distress HEENT: AT/NC, ALE, EOMI. scleral icterus present. Neck: Supple. Oral Mucosa: Moist CVS: S1S2+ RRR Lungs: symmetrical chest rise seen Abdomen: Soft, mild distension, non tender, BS+, No palpable organomegaly appreciated Extremities: chronic B/L LE edema. No Asterixis. Neuro: AA oriented x 3. No gross neuro deficits appreciated. Skin: Jaundiced Labs in last 18 hours CBC WBC 3.57 (L) Hb 6.3 (LL) Plt 75 (L) Hct 21.7 (L) ANC ?? INR 2.4 (H), PTT ??, Anti-Xa ?? BMP Na 139 Cl 108 (H) BUN 19 Glu 85 K 4.2 Co2 21 (L) Cr 0.78 Ca 8.2 (L) iCa ?? Mg ??, Phos ?? Lactate ?? LFT AST 76 (H) AlkPhos 152 (H) T Prot 5.8 (L) ALK 35 Bili 12.4 (H) Alb ?? D.Bili ?? AFP <2.3 (10/20/24) CT abdomen and pelvis with IV contrast (10/23/24): Morphologic changes of the liver consistent with parenchymal disease. Wedge- shaped hyperenhancementin the left hepatic lobe favoring transient hepatic attenuation differences. Hypoattenuating subcentimeter lesions in the right hemiliver may represent cysts. Sequela of portal hypertension with mild splenomegaly, small volume ascites, and portosystemic collaterals. Small left pleural effusion. Assessment and Plan: Mr. Tay is a 44 year old male with history significant for alcohol related cirrhosis decompensated with ascites, HE came to the clinic for follow up. He got evaluated and listing has not been donedue to pending colonoscopy. # Acute on chronic symptomatic anemia - Baseline Hgb of 7-8 - Hgb down to 6.3 today - No overt GI bleeding signs - Never had EGD or colonoscopy - concern for possible GAVE bleeding -- Instructed the patient to go to the ED for blood transfusion as well as admission -- Once patient gets admitted to the hospital we will plan for EGD and colonoscopy to evaluate further causes of anemia. # Cirrhosis, decompensated with Ascites, SBP, HE - MELD NA: MELD 3.0: 27 at 12/17/2024 7:01 AM MELD-Na: 26 at 12/17/2024 7:01 AM Calculated from: Serum Creatinine: 0.78 mg/dL (Using min of 1 mg/dL) at 12/17/2024 7:01 AM Serum Sodium: 139 mmol/L (Using max of 137 mmol/L) at 12/17/2024 7:01 AM Total Bilirubin: 12.4 mg/dL at 12/17/2024 7:01 AM Serum Albumin: 2.8 g/dL at 12/17/2024 7:01 AM INR(ratio): 2.4 at 12/17/2024 7:01 AM Age at listing (hypothetical): 44 years Sex: Male at 12/17/2024 7:01 AM - Etiology: - Alcohol - Ascites/pedal edema: Had paracentesis 2 months ago and has not required any further. Currently on Lasix 20 milligrams daily and spironolactone 50 milligrams daily Being adherent to 2 grams sodium restricted diet Reports that his pedal edema is better than before -- We will continue the same dose of diuretic -- Reiterated about the importance of continuing 2 grams sodium restricted diet -- LVP as needed -- [facility] Continue ciprofloxacin 500 milligrams daily for secondary SBP prophylaxis - HE: No overt hepatic encephalopathy today On lactulose having average of 2 bowel movements per day. We will continue that Rifaximin was started in the previous visit and he reports that it got approved but has not startedyet at home. Continue lactulose and rifaximin with titration of 2-3 bowel movements daily. - Varices: No prior EGD. No h/o overt GI bleeding before. On Coreg 6.25 mg BID. Please see Problem # 1 - HCC: - CT abd w IV contrast 10/2024: no suspicious liver lesions. Wedge-shaped hyperenhancement inthe left hepatic lobe favoring transient hepatic attenuation differences. AFP - WNL Continue Q 6 monthly surveillance - Transplant: evaluated but not listed yet. Seen by SW today - He is Immune to Hep A but not to B. First dose of Hep B vaccine given on 11/25/24. Need another dose after 1 month. - No NSAIDS due to risk of bleeding. No AUNDREA-I or ARBs due to risk of hypotension and NINA. Acetaminophen up to 2 grams per day if needed. - Recommend daily protein intake of 1.2 to 1.5 g/kg and caloric intake of at least 35 Kcal/kg idealbody weight, thiamine, vitamin B complex supplementation and fire crew specialist breakfast, late evening snack, and intake of small, frequent meals and snacks every 3- 4 hours while awake # [facility] use [facility] Last drink 08/15/24 Alc hep x2 # Tobacco chewing Following with [facility] clinic. On Wellbutrin Quit tobacco 3 weeks ago RTC 2 weeks after discharge Time Spent: I personally spent a total of 60 minutes on this encounter. This time includes face to face with patient, counseling and discussion and/or coordination of care. [1] Past Medical History: Diagnosis Date Anxiety Depression Enterocolitis due to Clostridium difficile, not specified as recurrent 11/04/2024 GERD (gastroesophageal reflux disease) Hypertension [2] Past Surgical History: Procedure Laterality Date VASECTOMY [3] Allergies Allergen Reactions Amoxicillin Hives and Rash Childhood allergy [4] Social History Tobacco Use Smoking status: Never Passive exposure: Current Smokeless tobacco: Current Types: Chew Substance Use Topics Alcohol use: Not Currently Alcohol/week: 4.0 standard drinks of alcohol Types: 4 Cans of beer per week Comment: Quit 2 months ago Drug use: Never [5] No family history on file. [6] Current Outpatient Medications on File Prior to Visit Medication Sig Dispense Refill buPROPion SR (Wellbutrin SR) 150 MG 12 hr tablet Take 1 tablet by mouth daily for 3 days, THEN 1 tablet 2 times a day. Do not crush, chew, or split. 123 tablet 1 carvedilol (Coreg) 6.25 MG tablet Take 1 tablet by mouth 2 times a day. 60 tablet 3 ciprofloxacin (Cipro) 500 MG tablet Take 1 tablet by mouth daily. 30 tablet 2 escitalopram (Lexapro) 10 MG tablet Take 0.5 tablets by mouth daily. 15 tablet 3 furosemide (Lasix) 20 MG tablet Take 1 tablet by mouth daily. 90 tablet 3 lactulose (Chronulac) 10 GM/15ML solution Take 15 mL by mouth 3 times a day. 1350 mL 3 nutrional drink glucose control (Boost Glucose Control) liquid liquid Take 237 mL by mouth 2 times a day. 33844 mL 3 pantoprazole (Protonix) 40 MG EC tablet Take 1 tablet by mouth daily. Do not crush, chew, or split.30 tablet 3 rifAXIMin (Xifaxan) 550 MG tablet Take 1 tablet by mouth 2 times a day. 180 tablet 3 spironolactone (Aldactone) 50 MG tablet Take 1 tablet by mouth daily. 30 each 3 traZODone (Desyrel) 50 MG tablet Take 0.5 tablets by mouth nightly. 45 tablet 1 No current facility-administered medications on file prior to visit. documented in this encounter Plan of Treatment Upcoming Encounters Date Type Department Care Team (Late st Contact Info) Description 01/23/2025 8:40 AM EST Office Visit [facility] [address] [place] [address] [facility]Cy[facility] rosemary-Paul 03/06/2025 11:10 AM EST Appointment [facility] [address] [place] [id number] Natalya Valentine MD [address] [place] [address] documented as of this encounter Visit Diagnoses Diagnosis Decompensation of cirrhosis of liver (CMS/HCC)- Primary Hepatic encephalopathy (CMS/HCC) Hepatic encephalopathy Severe alcohol use disorder, in sustained remission Portal hypertension (CMS/HCC) Portal hypertension Acute on chronic anemia Symptomatic anemia documented in this encounter Additional Health Concerns Infection Onset Date Last Indicated Resolved Time C. difficile 11/04/2024 11/04/2024 12/18/2024 7:20 PM EST Assessment Noted Time PHQ-9 Depression Total Score: 9 11/26/19 25 11:02 AM EDT A fall risk assessment has been complete d for the patient 12/17/2024 7:07 AM EST A Body Mass Index follow-up plan has been documented for the patient 12/20/2024 1:16 PM EST documented as of this encounter Care Teams Crayon Painter Relationship Specialty Start Date End Date Pcp, [place] [address] PCP - General Family Medicine 10/20/23 12/21/24 documented as of this encounter
--- OUTSIDE RECORDS SUMMARY | 2024-12-17 09:32 | XMS_ITS | Encounter Summary ---
Author Organization [facility] Address [address] 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 Role Phone Pcp, No Primary [...] continuous Unspecified jaundice Leroy Aponte MD [address] [place] [address] Phone: tel: fax: Referral ID Status Reason Start Date Expiration Date V isits Requested Visits Authorized [id number] Pending Review 12/20/2024 06/21/2026 1 1 Reason for Visit * Reason Comments Abnormal Lab * Auth/Cert (Routine) Specialty Diagnoses / Procedures Referred By Contac t Referred To Contact Diagnoses Anemia Symptomatic anemia Anemia, unspecified type Alcoholic cirrhosis, unspecified whether ascites present Hemoglobin 6.3 Leroy Aponte MD [address] [place] [address] Phone: tel: fax: [facility] Inpatient [address] [place] [address] Phone: tel: Referral ID Status Reason Start Date Expiration Date Visits Re quested Visits Authorized [id number] 1 1 Encounter Details Date Type Department Care Team (Latest Contact Info) Description 12/17/2024 9:32 AM EST - 12/20/2024 2:30 AM [facility] Hospital Encounter [facility] Inpatient [address] [place] [address] Dionicio Lai MD [address] [place] [address] Leroy Aponte MD [address] [place] [address] Alcoholic cirrhosis, unspecified whether ascites [...] Date Recorded Patient Health Questionnaire-2 Score 2 01/20/2025 PHQ-9 Answer Date Recorded Patient Health Questionnaire-9 [...] or relatives? Twice a week 01/02/2025 Attends [employer] Services Not on file 01/02 Do you belong to any clubs o r organizations such as mandaen groups, unions, fraternal or athletic groups, or [...] housing, medical care, and heating? Hard 01/02/2025 [facility] - Occupational Stress [...] any time in the past [facility], were you homeless or living in a assisted (including now)? 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 Never 01/02/2025 12:41 PM Mariela Kumar RN Q2: How many drinks containing alcohol do you have on a typical day when you are drinking? Patient does not drink 01/02/2025 12:41 PM Mariela Kumar RN Q3: How often do you have six or more drinks on one occasion? Never 01/02/2025 12:41 PM Mariela Kumar RN * Question Answer Date of Assessment Author Backup Resp Rate (Set) 16 01/03/2025 3:01 PM Blaine Sinha * Question Answer Date of Assessment Author Precautions Environmental survei llance;Fall risk 01/16/2025 12:00 PM Armida Parish RN * Over the past 2 weeks, how often have you been bothered by any of the following problems? Question Answer Date of Assessment Author Little interest or pleasure in doing things Not at all 01/20/2025 7:11 AM Randi Turner RN Feeling down, depressed, or hopeless More than half the days 01/20/2025 7:11 AM Randi Turner RN Patient Health Questionnaire-2 Score 2 01/20/2025 7:11 AM Randi Turner RN * Question Answer Date of Assessment Author Trouble falling or staying asleep, or sleeping too much Nearly every day 01/20/2025 7:11 AM Randi Turner RN Feeling tired or having little energy Several days 01/20/2025 7:11 AM Randi Turner RN Poor appetite or overeating Not at all 01/20/2025 7:11 AM Randi Turner RN Feeling bad about yourself - or that you are a failure or have let yourself or your family down Not at all 01/20/2025 7:11 AM Randi Turner RN Trouble concentrating on things, such as reading the newspaper or watching television Several days 01/20/2025 7:11 AM Randi Turner RN Moving or speaking so slowly that other people could have noticed. Or the opposite - being so fidgety or restless that you have been moving around a lot more than usual More than half the days 01/20/2025 7:11 AM Randi Turner RN Thoughts that you would be better off or hurting yourself in some way Not at all 01/20/2025 7:11 AM Randi Turner RN Patient Health Questionnaire-9 Score 9 01/20/2025 7:11 AM Randi Turner RN * Calculated C-SSRS Risk Score (Lifetime/Recent) Answer Date of Assessment Author No Risk Indicated 01/16/2025 12:00 PM Armida Parish RN * How difficult have these problems made it for you to do your work, take care of things at home, or get along with other people? Answer Date of Assessment Author Not difficult at all 01/20/2025 7:11 AM Randi Reyna RN * Question Answer Date of Assessment Author 1. Wish to be (Past 1 Month) No 12:00 PM Armida Parish RN 2. Non-Specific Active Suici joceline Thoughts (Past 1 Month) No 01/16/2025 12:00 PM Armida Parish RN 6. Suicidal Behavior (Lifetime) No 5 12:00 PM Armida Parish, RN documented as of this encounter Mental Status * Question Answer Entry Date Author Precautions Environmental survei llance;Fall risk 01/16/2025 12:00 PM Armida Parish, RN * Question Answer Entry Date Author Backup Resp Rate (Set) 16 01/03/2025 3:01 PM Blaine Sinha documented in this encounter Medications at Time of Discharge ferrous sulfate 324 MG tablet delayed-release Take 1 tablet by mouth daily with breakfast. Do not crush, chew, or split. 30 tablet 12/21/2024 5 buPROPion SR (Wellbutrin SR) 150 MG 12 hr tabletIndications:To bacco use disorder Take 1 tablet by mouth daily for 3 days, THEN 1 tablet 2 times a day. Do not crush, chew, or split. 123 tablet 1 11/21/2024 5 carvedilol (Coreg) 6.25 MG tablet Take 1 tablet by mouth 2 times a day. 60 tablet 3 11/26/2024 5 ciprofloxacin (Cipro) 500 MG tabletIndications:Sp ontaneous bacterial peritonitis Take 1 tablet by mouth daily. 30 tablet 2 11/21/2024 5 escitalopram (Lexapro) 10 MG tablet Take 0.5 tablets by mouth daily. 15 tablet 3 11/26/2024 5 furosemide (Lasix) 20 MG tablet Take 1 tablet by mouth daily. 90 tablet 3 11/21/2024 5 lactulose (Chronulac) 10 GM/15ML solution Take 15 mL by mouth 3 times a day. 1350 mL 3 11/26/2024 5 Multiple Vitamins-Minerals (Mens Multi Health Formula) tablet Take by mouth. 5 nutrional drink glucose control (Boost Glucose Control) liquid liquid Take 237 mL by mouth 2 times a day. 99013 mL 3 12/03/2024 5 pantoprazole (Protonix) 40 [...] Goal (Individualized) Outcome: Ongoing, Progressing Flowsheets (Taken 12/20/2024 08) Patient/Family-Specific Goals (Include Timeframe): Patient will be [...] Monitor Pain and Promote Comfort Flowsheets (Taken 12/20/2024 1317) Pain Management Interventions: medication (see MAR) Intervention: Provide Person-Centered Care Flowsheets (Taken 12/20/2024 131) Trust Relationship/Rapport: care explained Problem: Fall Injury Risk Goal: Absence of Fall and Fall-Related Injury Outcome: Ongoing, Progressing Intervention: Identify and Manage Contributors Flowsheets (Taken 12/20/2024 1317) Medication Review/Management: medications reviewed Self-Care Promotion: independence encouraged Intervention: Promote Injury-Free Environment Flowsheets (Taken 12/20/2024 0800) Safety Promotion/Fall Prevention: activity supervised assistive device/personal items within reach clutter-free environment maintained fall prevention program maintained lighting adjusted nonskid shoes/slippers when out of bed room organization consistent safety round/check completed * Addendum Note - Bimal Cartwright - 12/20/2024 2:30 AM ESTEncounter addended by: Bimal Cartwright on: 12/31/2024 2:23 PM Actions taken: Utilization Review saved, Utilization Review data saved * Discharge Summary - Farheen Dang MD - 12/20/2024 2:30 AM EST Hospitalization Admit Date/Time: 12/17/2024 9:32 AM Admitting Attending: Leroy Aponte Discharge Date: 12/20/24 Discharge Attending Physician: Leroy Aponte MD PCP name and Address: Pcp, [address] [address] Referring provider name and address: Tommy Dillon MD [id number] [place] [address] Chief Concern, Brief History of Present Illness, [...] and Procedures EGD 12/18 Failed colonoscopy 12/18 03/16 inadequate bowel prep/insufficient equipment Medication List .. [...] Your Medications These medications were sent to [facility] [place], [place] - [address], [facility] [address] ferrous sulfate 324 MG tablet delayed-release pantoprazole [...] Farheen Dang MD Physical Medicine & Rehabilitation [facility] PGY-1 Pager: [phone] Cosigned by Leroy Aponte MD at 12/20/2024 [...] from the original note were not included. [facility] Medicine Progress Note Subjective Chief presenting concern: [...] Farheen Dang MD Physical Medicine & Rehabilitation [facility] PGY-1 Pager: [phone] Cosigned by Leroy Aponte MD at 12/19/2024 [...] possible transfusion * Care Plan - Yi Recinos, DEMETRIA - 12/19/2024 11:39 AM EST Problem: Adult Inpatient Plan of Care Goal: Plan of Care Review Outcome: Ongoing, Progressing Flowsheets (Taken 12/19/2024 1138) Progress: improving Outcome Evaluation: Patient will remain [...] VTE (Venous Thromboembolism) Risk Flowsheets (Taken 12/19/2024 113) VTE Prevention/Management: bilateral SCDs (sequential compression devices) [...] Herrera MD Gastroenterology and Hepatology PGY-6 Secure [phone] [1] buPROPion SR, 150 mg, Oral, BID carvedilol, 6.25 mg, Oral, BID escitalopram, 5 mg, Oral, Daily pantoprazole, 40 mg, Intravenous, BID rifAXIMin, 550 mg, Oral, BID sodium chloride, 10 mL, Intravenous, q12h [2] [3] PRN medications: ondansetron ODT OR ondansetron OR ondansetron, Insert peripheral IV AND Saline lock IV AND sodium chloride AND sodium chloride Cosigned by Tommy Dillon MD at 12/22/2024 12:27 PM EST Associated attestation - Tommy Dillon MD - 12/22/2024 12:27 PM EST I saw and evaluated the patient with the resident/fellow. I discussed the case with the resident/fellow and agree with the findings and plan as documented. * Care Plan - Janiya David RN - 12/19/2024 8:42 AM EST Problem: Adult Inpatient Plan of Care Goal: Plan of Care Review Outcome: Ongoing, Progressing Flowsheets (Taken 12/19/2024839) Progress: improving Outcome Evaluation: Patient will remain [...] Identify and Manage Fall Risk Flowsheets (Taken 12/19/2024599) Safety Promotion/Fall Prevention: activity [...] Manage VTE (Venous Thromboembolism) Risk Flowsheets (Taken 12/19/202440) VTE Prevention/Management: SCDs (sequential compression devices) off Intervention: Prevent Infection Flowsheets (Taken 12/19/2024839) Infection Prevention: cohorting utilized single patient room provided environmental surveillance performed visitors restricted/screened equipment surfaces disinfected hand hygiene promoted personal protective equipment utilized rest/sleep promoted Goal: Optimal Comfort and Wellbeing Outcome: Ongoing, Progressing Intervention: Monitor Pain and Promote Comfort Flowsheets (Taken 12/19/2024839) Pain Management Interventions: care clustered pain management plan reviewed with patient/caregiver rest Intervention: Provide Person-Centered Care Flowsheets (Taken 12/19/2024839) Trust Relationship/Rapport: care explained thoughts/feelings acknowledged choices provided emotional support provided empathic listening provided questions answered questions encouraged reassurance provided Problem: Fall Injury Risk Goal: Absence of Fall and Fall-Related Injury Outcome: Ongoing, Progressing Intervention: Identify and Manage Contributors Flowsheets (Taken 12/19/2024839) Medication Review/Management: medications reviewed Self-Care Promotion: independence [...] Identify and Manage Fall Risk Flowsheets (Taken 12/18/2024 0737) Safety Promotion/Fall Prevention: activity supervised assistive device/personal items within reach clutter-free environment maintained fall prevention program maintained lighting adjusted nonskid shoes/slippers when out of bed room organization consistent safety round/check completed Goal: Optimal Comfort and Wellbeing Outcome: Ongoing, Progressing Problem: Fall Injury Risk Goal: Absence of Fall and Fall-Related Injury Outcome: Ongoing, Progressing Intervention: Promote Injury-Free Environment Flowsheets (Taken 12/18/2024 0737) Safety Promotion/Fall Prevention: activity supervised assistive device/personal [...] findings he was instructed to present to [facility] for blood transfusion and further work [...] Note Orly White 44 y.o. male CSN: [id number] Admission: 12/17/2024 9:32 AM Primary Problem: Anemia Produce Weigher reviewed chart and spoke with patient and his and Mom at to complete this Initial Case Management Assessment. PCP: Param Eng Emergency Contact: Extended Emergency Contact Information Primary Emergency Contact: Patricia White Address: [address] [address] [facility] [address] Relation: Spouse Preferred language: Nigerian Insurance: Primary Visit Coverage Payer Plan Sponsor Code Group Number Group Name [employer] [place] Primary Visit Coverage Subscriber Subscriber ID Subscriber Name Subscriber [facility] Subscriber Address [id number] Orly White [id number] [address] [id number] Secondary Visit Coverage Payer Plan Sponsor Code Group Number Group Name [facility] Secondary Visit Coverage Subscriber Subscriber ID Subscriber Name Subscriber N Subscriber Address [id number] ORLY WHITE [id number] [address] [id number] Patient information: Primary Caregiver: Self Accompanied by/Relationship: , Mom Support System: Immediate family Daily Living Activities: Functional Status: Independent Living Arrangements: Spouse/Significant other, Children Type of Residence: Single [address] [address] Current DME: Equipment Currently Used at Home: none Housing Circumstances-Z Codes: Housing Circumstances (select all that apply): None Applicable Anticipated Discharge Date: unknown Patient's Discharge Goal: home Assistance Available at Discharge: , step-son, Mom, uncle Discharge Transport: , Mom Follow Up Transport: family Home Health / Home Infusion / Outpatient Dialysis Services: none Living Will/Advance Directive/Power of Employee Training Specialist /Guardian: Pt does not have a living will or POA. Additional Comments: Pt admitted for anemia. Met with pt and family at , verified information. Pt has a PCP, Param Eng, with the last visit approx a few months ago. Pt lives with his and step-son, age 29, who are able to provide assistance at home if needed. Pt has [facility] [employer] and [place] [employer], as his insurance. Transportation home will be provided by his /Mom. Pt has listed his , Patricia White,as his emergency contact, phone # [phone]. Pt obtains medications from [facility]. Pt currently does not have DME or [...] 9:33 AM ESTAssociated Order(s): Inpatient consult - GI Alexx Inpatient consult - GI Alexx Consult performed by: Luis Herrera MD Consult ordered by: Leroy Aponte MD Inpatient Gastroenterology, Hepatology and Nutrition Initial Consultation Note: Patient: Orly White Date of : 1980 Room: [address] [place] [address] Referring provider: Leroy Aponte MD Reason for [...] Herrera MD Gastroenterology and Hepatology PGY-6 Secure chat/[phone] [1] Past Medical History: Diagnosis Date Anxiety [...] mg, Intravenous, q6h PRN, 4 mg at 12/17/241 OR ondansetron (Zofran) 4 MG/5ML solution 4 [...] 10 mL, Intravenous, q12h, 10 mL at 12/18/24 0818 AND sodium chloride 0.9 % flush 10 mL, 10 mL, Intravenous, PRN, Martina Bess MD Cosigned by Tommy Dillon MD at 12/18/2024 9:54 AM EST Associated attestation - Tommy Dillon MD - 12/18/2024 9:54 AM EST [...] education provided Intervention: Prevent Infection Flowsheets (Taken 12/18/2024 0702) Infection Prevention: environmental surveillance performed equipment surfaces disinfected hand hygiene promoted Goal: Optimal Comfort and Wellbeing Outcome: Ongoing, Progressing Intervention: Monitor Pain and Promote Comfort Flowsheets (Taken 12/18/2024 0702) Pain Management Interventions: care clustered Intervention: Provide Person-Centered Care Flowsheets (Taken 12/18/2024 07) Trust Relationship/Rapport: care explained choices provided emotional support provided empathic listening provided questions answered questions encouraged * Consults - Jarrod Celeste - 12/17/2024 3:30 PM EST Pastoral Care Note Rn Nicu met patient at bedside and provided emotional support. Patient spoke about his health and hospitalization. Patient is support by family, spouse. Patient share about his felisa and appreciatesprayer. Rn Nicu provided a supportive presence, empathic listening, and a prayer per patient's request. Pastoral care will continue to be available as needed. 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 Hospital Medicine History & Physical Consult to [facility] Consult performed by: Martina Bess MD Consult ordered by: Ladonna Fuentes PA Reason for consult: UGIB Subjective 12/17/2024 [...] was instructed to present to [facility] this morning for blood transfusion and admission [...] weeks ago. He has since been using aherbal dip pouch which is free from both tobacco and nicotine and reports this has helped with his c ravings. He has not had an episode of [...] AM Result Value Ref Range Product Code [id number] Dispense Status Transfused Blood Expiration Date [id number] Unit Number [id number] Product Blood Type 0600 Blood Type A- [...] & CTX * ED Provider Notes - Ladonna Fuentes PA - 12/17/2024 9:05 AM EST Images [...] dizziness, chest pain, SOA, and urinary symptoms. LAURA: Agree with history as stated above. Patient [...] fevers, chills, hematuria. History provided by: Patient dentofacial orthopedics dentist used: No Patient History Past Medical History[1] [...] and Affect: Mood normal. Behavior: Behavior normal. [place] Coma Scale Score: 15 ED Course & [...] Status Ordering Provider 12/17/24 1035 Consult to [facility] Once Specialty: Internal Medicine Provider: (Not yet assigned) Acknowledged LADONNA FUENTES 12/17/24 1035 ED to floor bed request Once Acknowledged LADONNA FUENTES 12/17/24 1005 Initiate Contact D Isolation Continuous Comments: Added via Instant Order OPA Acknowledged BPA, INSTANT ORDERS 12/17/24 1005 Prepare Leukocyte Reduced RBC: 1 Units Blood - Once Placed in And Linked Group Final result LADONNA FUENTES 12/17/24 1005 Transfuse RBC Transfusion Placed in And Linked Group Final result LADONNA FUENTES 12/17/24 0922 Insert peripheral IV Once Acknowledged DIONICIO LAI 12/17/24 0922 Cardiac monitoring Until discontinued Acknowledged DIONICIO LAI ED Course as of 12/17/24 1414 SunDec [...] bedside. [MA] ED Course User Index [MA] Ladonna Fuentes PA Clinical Impressions as of 12/17/24 1414 [...] ED Prescriptions None Disposition Admit Requested Location: [facility] [[id number]] [facility] Date/Time: 12/17/2024, 9:20 AM Entered by Elisa [...] Reactions Amoxicillin Hives and Rash Childhood allergy Ladonna Fuentes PA 12/17/24 1414 Cosigned by Dionicio Lai MD at 12/30/2024 4:14 PM EST Associated attestation - Dionicio Lai MD - 12/30/2024 4:14 PM EST I [...] Description 01/23/2025 8:40 AM EST Office Visit [facility] [address] [place] [address] [id number] rosemary-Laura 03/06/2025 11:10 AM EST Appointment [facility] [address] [place] [id number] Natalya Valentine MD [address] [facility] [address] [place] [address] Scheduled Referrals Name Type Priority Associated Diagnoses [...] LAB HEMATOLOGY METHOD 12/24/2024 10:51 AM EST [facility] RBC Count 2.82(L) 4.60 - 6.10 10*6/uL LAB HEMATOLOGY METHOD 12/24/2024 10:51 AM EST [facility] HGB 8.7(L) 13.7 - 17.5 g/dL LAB HEMATOLOGY METHOD 12/24/2024 10:51 AM EST [facility] HCT 29.0(L) 40.0 - 51.0 % LAB HEMATOLOGY METHOD 12/24/2024 10:51 AM EST [facility] Platelet Count 66(L) 155 - 369 10*3/uL LAB HEMATOLOGY METHOD 12/24/2024 10:51 AM EST [facility] MCV 103(H) 79 - 98 fL LAB HEMATOLOGY METHOD 12/24/2024 10:51 AM EST [facility] MCH 30.9 26.0 - 32.0 pg LAB HEMATOLOGY METHOD 12/24/2024 10:51 AM EST [facility] MCHC 30.0(L) 30.7 - 35.5 g/dL LAB HEMATOLOGY METHOD 12/24/2024 10:51 AM EST [facility] RDW 21.2(H) 11.5 - 14.5 % LAB HEMATOLOGY METHOD 12/24/2024 10:51 AM EST [facility] MPV 10.2 8.8 - 12.5 fL LAB HEMATOLOGY METHOD 12/24/2024 10:51 AM EST [facility] nRBC 0.0 <=0.0 per 100 WBCs LAB HEMATOLOGY METHOD 12/24/2024 10:51 AM EST [facility] Differential Type Automated LAB HEMATOLOGY METHOD 12/24/2024 10:51 AM EST [facility] Neutrophils % 44 % LAB HEMATOLOGY METHOD 12/24/2024 10:51 AM EST [facility] Lymphocytes % 33 % LAB HEMATOLOGY METHOD 12/24/2024 10:51 AM EST [facility] Monocytes % 18 % LAB HEMATOLOGY METHOD 12/24/2024 10:51 AM EST [facility] Eosinophils % 4 % LAB HEMATOLOGY METHOD 12/24/2024 10:51 AM EST [facility] Basophils % 1 % LAB HEMATOLOGY METHOD 12/24/2024 10:51 AM EST [facility] Immature Granulocytes % 0 % LAB HEMATOLOGY METHOD 12/24/2024 10:51 AM EST [facility] Neutrophils Absolute 1.40(L) 1.60 - 6.10 10*3/uL LAB HEMATOLOGY METHOD 12/24/2024 10:51 AM EST [facility] Lymphocytes Absolute 1.03(L) 1.20 - 3.90 10*3/uL LAB HEMATOLOGY METHOD 12/24/2024 10:51 AM EST [facility] Monocytes Absolute 0.58 0.30 - 0.90 10*3/uL LAB HEMATOLOGY METHOD 12/24/2024 10:51 AM EST [facility] Eosinophils Absolute 0.11 0.00 - 0.50 10*3/uL LAB HEMATOLOGY METHOD 12/24/2024 10:51 AM EST [facility] Basophils Absolute 0.02 0.00 - 0.10 10*3/uL LAB HEMATOLOGY METHOD 12/24/2024 10:51 AM EST [facility] Immature Granulocytes Absolute 0.01 0.00 - 0.06 10*3/uL LAB HEMATOLOGY METHOD 12/24/2024 10:51 AM EST [facility] Blood Venous blood specimen / Unknown Venipuncture / Unknown 12/24/2024 10:04 AM EST 12/24/2024 10:42 AM EST Narrative [facility] - 12/24/2024 10:51 AM EST Therapeutic decision making should be based on absolute values, rather than percentages. us Leroy Aponte MD LAB BLOOD ORDERABLES Final Resul t [facility] [address] [place] [address] * (ABNORMAL) Hemoglobin and Hematocrit, Blood (12/20/2024 9:57 AM EST) HGB 8.0(L) 13.7 - 17.5 g/dL LAB HEMATOLOGY METHOD 12/20/2024 10:07 AM EST [facility] HCT 25.6(L) 40.0 - 51.0 % LAB HEMATOLOGY METHOD 12/20/2024 10:07 AM EST [facility] LAB Blood Venous blood specimen / Unknown Venipuncture / Unknown 12/20/2024 9:57 AM EST 12/20/2024 10:00 AM EST us Leroy Aponte MD LAB BLOOD ORDERABLES Final Resul t Performing Organization Address City/[facility] de Phone Number [facility] [address] [place] [address] * Phosphorus (12/20/2024 8:32 AM EST) Phosphorus, Plasma 3.7 2.5 - 4.5 mg/dL 12/20/2024 8:59 AM EST [facility] Blood Venous blood specimen / Unknown Venipuncture / Unknown 12/20/2024 8:32 AM EST 12/20/2024 8:36 AM EST us Leroy Aponte MD LAB BLOOD ORDERABLES Final Resul t Performing Organization Address [facility] [place] [address] * (ABNORMAL) Magnesium (12/20/2024 8:32 AM EST) Magnesium, Plasma 1.4(L) 1.9 - 2.4 mg/dL 12/20/2024 8:59 AM EST [facility] Blood Venous blood specimen / Unknown Venipuncture / Unknown 12/20/2024 8:32 AM EST 12/20/2024 8:36 AM EST us Leroy Aponte MD LAB BLOOD ORDERABLES Final Resul t Performing Organization Address City/[facility] [place] [address] * Transfuse RBC (12/20/2024 7:17 AM EST) us Leroy Aponte MD BLOOD TRANSFUSION ORDERABLES Fin al Result * Prepare Leukocyte Reduced RBC: 1 Units, Leukocyte reduced (CMV reduced risk) (12/20/2024 4:21 AM EST) Product Code [id number] CH BLOO D BANK Dispense Status Transfused BLOOD BANK Blood Expiration Date [id number] BLOOD BANK Unit Number [id number] B LOOD BANK Product Blood Type 0600 BLOOD BANK Blood Type A- BLOOD BANK Crossmatch Compatible BLOOD BANK Other Leroy Aponte MD BLOOD BANK PRODUCT ORDERABLES Fi nal Result Performing Organization Address City/[facility] Co de Phone Number BLOOD BANK [address] * (ABNORMAL) Prothrombin Time/INR (12/20/2024 2:04 AM EST) Prothrombin Time 27.7(H) 12.0 - 14.3 sec LAB COAGULATION METHOD 12/20/2024 3:40 AM EST [facility] INR 2.6(H) 0.9 - 1.1 LAB COAGULATION METHOD 12/20/2024 3:40 AM EST [facility] Blood Venous blood specimen / Unknown Venipuncture / Unknown 12/20/2024 2:04 AM EST 12/20/2024 2:56 AM EST Narrative [facility] - 12/20/2024 3:40 AM EST OPTIMAL INR RANGES FOR PATIENT ON ORAL ANTICOAGULANT THERAPY Prevention of venous thromboembolism INR 2.0 to 3.0 In patients with heart disease: Atrial fibrillation INR 2.0 to 3.0 Valvular heart disease INR 2.0 to 3.0 Tissue heart valves INR 2.0 to 3.0 Mechanical prosthetic valves INR 2.5 to 3.5 Prevention of recurrent [place] INR 2.5 to 3.5 us Leroy Aponte MD LAB BLOOD ORDERABLES Final Resul t Performing Organization Address City/[facility]/ZIP Co de Phone Number [facility] [address] [place] [address] * (ABNORMAL) Comprehensive metabolic panel (12/20/2024 2:04 AM EST) Glucose, Plasma 98 74 - 99 mg/dL 12/20/2024 3:33 AM EST [facility] BUN, Plasma 12 7 - 21 mg/dL 12/20/2024 3:33 AM [facility] Creatinine, Plasma 0.82 0.70 - 1.20 mg/dL 12/20/2024 3:33 AM [facility] BUN/Creatinine Ratio 15 12/20/2024 3:33 AM [facility] Sodium, Plasma 137 136 - 145 mmol/L 12/20/2024 3:33 AM [facility] Potassium, Plasma 3.8 3.6 - 4.9 mmol/L 12/20/2024 3:33 AM [facility] Chloride, Plasma 105 97 - 107 mmol/L 12/20/2024 3:33 AM [facility] CO2, Plasma 23 22 - 29 mmol/L 12/20/2024 3:33 AM [facility] Anion Gap 9 6 - 16 mmol/L 12/20/2024 3:33 AM [facility] Total Calcium, Plasma 7.7(L) 8.9 - 10.2 mg/dL 12/20/2024 3:33 AM [facility] Total Protein 5.0(L) 6.3 - 7.9 g/dL 12/20/2024 3:33 AM [facility] Albumin, Plasma 2.4(L) 3.5 - 5.2 g/dL 12/20/2024 3:33 AM [facility] AST, Plasma 51(H) 10 - 50 U/L 12/20/2024 3:33 AM [facility] ALT, Plasma 29 10 - 50 U/L 12/20/2024 3:33 AM [facility] Alkaline Phosphatase, Plasma 135(H) 40 - 115 U/L 12/20/2024 3:33 AM [facility] Total Bilirubin, Plasma 11.9(H) 0.2 - 1.1 mg/dL 12/20/2024 3:33 AM [facility] eGFRcr 110.4 mL/min/1.7 3m*2 12/20/2024 3:33 AM [facility] Comment:Reported eGFRcr in m L/min/1.73m2 is based the CKD-EPI 2020 equation that does not use a race coefficient. Blood Venous blood specimen / Unknown Venipuncture / Unknown 12/20/2024 2:04 AM EST 12/20/2024 2:56 AM EST us Leroy Aponte MD LAB BLOOD ORDERABLES Final Resul t [facility] [address] [place] [address] * (ABNORMAL) CBC W/O Differential (12/20/2024 2:04 AM EST) WBC Count 3.79 3.70 - 10.30 10*3/uL LAB HEMATOLOGY METHOD 12/20/2024 3:23 AM EST [facility] RBC Count 2.18(L) 4.60 - 6.10 10*6/uL LAB HEMATOLOGY METHOD 12/20/2024 3:23 AM EST [facility] HGB 6.9(L) 13.7 - 17.5 g/dL LAB HEMATOLOGY METHOD 12/20/2024 3:23 AM EST [facility] HCT 22.0(L) 40.0 - 51.0 % LAB HEMATOLOGY METHOD 12/20/2024 3:23 AM EST [facility] Platelet Count 66(L) 155 - 369 10*3/uL LAB HEMATOLOGY METHOD 12/20/2024 3:23 AM EST [facility] MCV 101(H) 79 - 98 fL LAB HEMATOLOGY METHOD 12/20/2024 3:23 AM EST [facility] MCH 31.7 26.0 - 32.0 pg LAB HEMATOLOGY METHOD 12/20/2024 3:23 AM EST [facility] MCHC 31.4 30.7 - 35.5 g/dL LAB HEMATOLOGY METHOD 12/20/2024 3:23 AM EST [facility] RDW 19.7(H) 11.5 - 14.5 % LAB HEMATOLOGY METHOD 12/20/2024 3:23 AM EST [facility] MPV 10.9 8.8 - 12.5 fL LAB HEMATOLOGY METHOD 12/20/2024 3:23 AM EST [facility] nRBC 0.0 <=0.0 per 100 WBCs LAB HEMATOLOGY METHOD 12/20/2024 3:23 AM EST [facility] Blood Venous blood specimen / Unknown Venipuncture / Unknown 12/20/2024 2:04 AM EST 12/20/2024 2:56 AM EST us Leroy Aponte MD LAB BLOOD ORDERABLES Final Resul t Performing Organization Address [facility] Co de Phone Number [facility] [address] [place] [address] * Light Green Top (12/19/2024 2:53 PM EST) Extra Hold for add-ons 12/19/2024 5:01 PM EST [facility] Comment:Auto resulted. Blood Venous blood specimen / Unknown 12/19/2024 2:53 PM EST 12/19/2024 2:59 PM EST us Leroy Aponte MD LAB BLOOD ORDERABLES Final Resul t Performing Organization Address [facility] Phone Number [facility] [address] [place] [address] * (ABNORMAL) Hemoglobin and Hematocrit, Blood (12/19/2024 2:53 PM EST) HGB 7.2(L) 13.7 - 17.5 g/dL LAB HEMATOLOGY METHOD 12/19/2024 3:20 PM EST [facility] HCT 23.7(L) 40.0 - 51.0 % LAB HEMATOLOGY METHOD 12/19/2024 3:20 PM EST [facility] Blood Venous blood specimen / Unknown Venipuncture / Unknown 12/19/2024 2:53 PM EST 12/19/2024 3:08 PM EST us Leroy Aponte MD LAB BLOOD ORDERABLES Final Resul t Performing Organization Address [facility] Co de Phone Number [facility] [address] [place] [address] * Light Blue Top (12/19/2024 11:50 AM EST) Extra Hold for add-ons 12/19/2024 2:02 PM EST [facility] Comment:Auto resulted. Blood Venous blood specimen / Unknown 12/19/2024 11:50 AM EST 12/19/2024 11:56 AM EST us Leroy Aponte MD LAB BLOOD ORDERABLES Final Resul t Performing Organization Address [facility] Co de Phone Number [facility] [address] [place] [address] * Ferritin (12/19/2024 11:50 AM EST) Ferritin, Serum 42 20 - 400 ng/mL 12/19/2024 12:58 PM EST [facility] Blood Venous blood specimen / Unknown Venipuncture / Unknown 12/19/2024 11:50 AM EST 12/19/2024 12:13 PM EST us Leroy Aponte MD LAB BLOOD ORDERABLES Final Resul t Performing Organization Address [facility] Phone Number [facility] [address] [place] [address] * Folate (12/19/2024 11:50 AM EST) Folate, Serum 18.3 >4.6 ng/mL 12/19/2024 12:58 PM EST [facility] Blood Venous blood specimen / Unknown Venipuncture / Unknown 12/19/2024 11:50 AM EST 12/19/2024 12:13 PM EST us Leroy Aponte MD LAB BLOOD ORDERABLES Final Resul t Performing Organization Address City/[facility] Co de Phone Number [facility] [address] [place] [address] * (ABNORMAL) Vitamin B12 (12/19/2024 11:50 AM EST) Vitamin B12, Serum 1,916(H) 210 - 1,033 pg/mL 12/19/2024 12:58 PM EST [facility] Blood Venous blood specimen / Unknown Venipuncture / Unknown 12/19/2024 11:50 AM EST 12/19/2024 12:13 PM EST us Leroy Aponte MD LAB BLOOD ORDERABLES Final Resul t Performing Organization Address City/[facility]/ZIP Co de Phone Number [facility] [address] [place] [address] * (ABNORMAL) Hemoglobin and Hematocrit, Blood (12/19/2024 9:26 AM EST) HGB 7.0(L) 13.7 - 17.5 g/dL LAB HEMATOLOGY METHOD 12/19/2024 12:16 PM EST [facility] HCT 22.3(L) 40.0 - 51.0 % LAB HEMATOLOGY METHOD 12/19/2024 12:16 PM EST [facility] Blood Venous blood specimen / Unknown Venipuncture / Unknown 12/19/2024 9:26 AM EST 12/19/2024 9:26 AM EST us Leroy Aponte MD LAB BLOOD ORDERABLES Final Resul t Performing Organization Address [facility]/ZIP Co de Phone Number [facility] [address] [place] [address] * Lavender Top (12/19/2024 9:26 AM EST) Extra Hold for add-ons 12/19/2024 12:02 PM EST [facility] Comment:Auto resulted. Blood Venous blood specimen / Unknown Venipuncture / Unknown 12/19/2024 9:26 AM EST 12/19/2024 9:26 AM EST us Leroy Aponte MD LAB BLOOD ORDERABLES Final Resul t [facility] [address] [place] [address] * (ABNORMAL) Iron & Total Iron Binding Capacity, Plasma (Includes Transferrin) (12/19/2024 8:54 AM EST) Iron, Plasma 38(L) 50 - 170 ug/dL 12/19/2024 12:46 PM EST [facility] Transferrin, Plasma 184(L) 200 - 360 mg/dL 12/19/2024 12:46 PM EST [facility] Total Iron Binding Capacity, Plasma 230(L) 240 - 450 ug/mL 12/19/2024 12:46 PM EST [facility] Transferrin Saturation 17 14 - 50 % 12/19/2024 12:46 PM EST [facility] Blood Venous blood specimen / Unknown Venipuncture / Unknown 12/19/2024 8:54 AM EST 12/19/2024 9:32 AM EST us Leroy Aponte MD LAB BLOOD ORDERABLES Final Resul t Performing Organization Address City/[facility]/ZIP Co de Phone Number [facility] [address] [place] [address] * (ABNORMAL) Magnesium (12/19/2024 8:54 AM EST) Magnesium, Plasma 1.5(L) 1.9 - 2.4 mg/dL 12/19/2024 10:02 AM EST [facility] Blood Venous blood specimen / Unknown Venipuncture / Unknown 12/19/2024 8:54 AM EST 12/19/2024 9:32 AM EST us Leroy Aponte MD LAB BLOOD ORDERABLES Final Resul t Performing Organization Address City/[facility] Co de Phone Number [facility] [address] [place] [address] * (ABNORMAL) Comprehensive metabolic panel (12/19/2024 4:52 AM EST) Glucose, Plasma 107(H) 74 - 99 mg/dL 12/19/2024 6:16 AM EST [facility] BUN, Plasma 15 7 - 21 mg/dL 12/19/2024 6:16 AM EST [facility] Creatinine, Plasma 0.88 0.70 - 1.20 mg/dL 12/19/2024 6:16 AM EST [facility] BUN/Creatinine Ratio 17 12/19/2024 6:16 AM EST [facility] Sodium, Plasma 135(L) 136 - 145 mmol/L 12/19/2024 6:16 AM EST [facility] Potassium, Plasma 4.4 3.6 - 4.9 mmol/L 12/19/2024 6:16 AM EST [facility] Chloride, Plasma 107 97 - 107 mmol/L 12/19/2024 6:16 AM EST [facility] CO2, Plasma 22 22 - 29 mmol/L 12/19/2024 6:16 AM EST [facility] Anion Gap 6 6 - 16 mmol/L 12/19/2024 6:16 AM EST [facility] Total Calcium, Plasma 7.9(L) 8.9 - 10.2 mg/dL 12/19/2024 6:16 AM EST [facility] Total Protein 5.3(L) 6.3 - 7.9 g/dL 12/19/2024 6:16 AM EST [facility] Albumin, Plasma 2.6(L) 3.5 - 5.2 g/dL 12/19/2024 6:16 AM EST [facility] AST, Plasma 62(H) 10 - 50 U/L 12/19/2024 6:16 AM EST [facility] ALT, Plasma 30 10 - 50 U/L 12/19/2024 6:16 AM EST [facility] Alkaline Phosphatase, Plasma 122(H) 40 - 115 U/L 12/19/2024 6:16 AM EST [facility] Total Bilirubin, Plasma 13.6(H) 0.2 - 1.1 mg/dL 12/19/2024 6:16 AM EST [facility] eGFRcr 108.1 mL/min/1.7 3m*2 12/19/2024 6:16 AM EST [facility] Comment:Reported eGFRcr in m L/min/1.73m2 is based the CKD-EPI 2020 equation that does not use a race coefficient. Blood Venous blood specimen / Unknown Venipuncture / Unknown 12/19/2024 4:52 AM EST 12/19/2024 5:44 AM EST us Leroy Aponte MD LAB BLOOD ORDERABLES Final Resul t [facility] [address] [place] [address] * (ABNORMAL) CBC and Differential (12/19/2024 4:52 AM EST) WBC Count 3.47(L) 3.70 - 10.30 10*3/uL LAB HEMATOLOGY METHOD 12/19/2024 5:54 AM EST [facility] RBC Count 2.32(L) 4.60 - 6.10 10*6/uL LAB HEMATOLOGY METHOD 12/19/2024 5:54 AM EST [facility] HGB 7.3(L) 13.7 - 17.5 g/dL LAB HEMATOLOGY METHOD 12/19/2024 5:54 AM EST [facility] HCT 23.3(L) 40.0 - 51.0 % LAB HEMATOLOGY METHOD 12/19/2024 5:54 AM EST [facility] Platelet Count 71(L) 155 - 369 10*3/uL LAB HEMATOLOGY METHOD 12/19/2024 5:54 AM EST [facility] MCV 100(H) 79 - 98 fL LAB HEMATOLOGY METHOD 12/19/2024 5:54 AM EST [facility] MCH 31.5 26.0 - 32.0 pg LAB HEMATOLOGY METHOD 12/19/2024 5:54 AM EST [facility] MCHC 31.3 30.7 - 35.5 g/dL LAB HEMATOLOGY METHOD 12/19/2024 5:54 AM EST [facility] RDW 19.7(H) 11.5 - 14.5 % LAB HEMATOLOGY METHOD 12/19/2024 5:54 AM EST [facility] MPV 10.0 8.8 - 12.5 fL LAB HEMATOLOGY METHOD 12/19/2024 5:54 AM EST [facility] nRBC 0.0 <=0.0 per 100 WBCs LAB HEMATOLOGY METHOD 12/19/2024 5:54 AM EST [facility] Differential Type Automated LAB HEMATOLOGY METHOD 12/19/2024 5:54 AM EST [facility] Neutrophils % 48 % LAB HEMATOLOGY METHOD 12/19/2024 5:54 AM EST [facility] Lymphocytes % 30 % LAB HEMATOLOGY METHOD 12/19/2024 5:54 AM EST [facility] Monocytes % 17 % LAB HEMATOLOGY METHOD 12/19/2024 5:54 AM EST [facility] Eosinophils % 3 % LAB HEMATOLOGY METHOD 12/19/2024 5:54 AM EST [facility] Basophils % 1 % LAB HEMATOLOGY METHOD 12/19/2024 5:54 AM EST [facility] Immature Granulocytes % 1 % LAB HEMATOLOGY METHOD 12/19/2024 5:54 AM EST [facility] Neutrophils Absolute 1.68 1.60 - 6.10 10*3/uL LAB HEMATOLOGY METHOD 12/19/2024 5:54 AM EST [facility] Lymphocytes Absolute 1.04(L) 1.20 - 3.90 10*3/uL LAB HEMATOLOGY METHOD 12/19/2024 5:54 AM EST [facility] Monocytes Absolute 0.59 0.30 - 0.90 10*3/uL LAB HEMATOLOGY METHOD 12/19/2024 5:54 AM EST [facility] Eosinophils Absolute 0.11 0.00 - 0.50 10*3/uL LAB HEMATOLOGY METHOD 12/19/2024 5:54 AM EST [facility] Basophils Absolute 0.03 0.00 - 0.10 10*3/uL LAB HEMATOLOGY METHOD 12/19/2024 5:54 AM EST [facility] Immature Granulocytes Absolute 0.02 0.00 - 0.06 10*3/uL LAB HEMATOLOGY METHOD 12/19/2024 5:54 AM EST [facility] Blood Venous blood specimen / Unknown Venipuncture / Unknown 12/19/2024 4:52 AM EST 12/19/2024 5:44 AM EST Narrative [facility] - 12/19/2024 5:54 AM EST Therapeutic decision making should be based on absolute values, rather than percentages. us Leroy Aponte MD LAB BLOOD ORDERABLES Final Resul t [facility] [address] [place] [address] * (ABNORMAL) Hemoglobin and Hematocrit, Blood (12/18/2024 3:38 PM EST) HGB 8.0(L) 13.7 - 17.5 g/dL LAB HEMATOLOGY METHOD 12/18/2024 3:58 PM EST [facility] HCT 25.5(L) 40.0 - 51.0 % LAB HEMATOLOGY METHOD 12/18/2024 3:58 PM EST [facility] Blood Venous blood specimen / Unknown Venipuncture / Unknown 12/18/2024 3:38 PM EST 12/18/2024 3:50 PM EST us Leroy Aponte MD LAB BLOOD ORDERABLES Final Resul t [facility] [address] [place] [address] * EGD TOMMY DILLON; 12/18/2024 (12/18/2024 11:24 AM EST) Anatomical Region [...] Félix Muñiz CRNA CRNA [place], Jolynn Endo Lead Front Desk Agent Ritu Espinoza RN Endo Nurse Liu East MD Anesthesiologist Tommy Dillon MD Proceduralist Mirella Deleon Endo Lead Front Desk Agent Ceasar Lofton RN Endo Nurse Preprocedure A [...] Luis Herrera MD Fellow Félix Muñiz CRNA SENIOR ENV[employer]ONMENTAL [employer]ANT Fatou Waggoner Endo Lead Front Desk Agent Ritu Espinoza RN Endo Nurse Liu East MD Anesthesiologist Tommy Dillon MD Proceduralist Mirella Deleon Endo Lead Front Desk Agent Ceasar Lofton RN Endo Nurse Preprocedure A [...] of bowel preparation was evaluated using the [place] Bowel Preparation Scale with scores of: right [...] LAB HEMATOLOGY METHOD 12/18/2024 5:13 AM EST [facility] RBC Count 2.59(L) 4.60 - 6.10 10*6/uL LAB HEMATOLOGY METHOD 12/18/2024 5:13 AM EST [facility] HGB 8.1(L) 13.7 - 17.5 g/dL LAB HEMATOLOGY METHOD 12/18/2024 5:13 AM [facility] HCT 26.2(L) 40.0 - 51.0 % LAB HEMATOLOGY METHOD 12/18/2024 5:13 AM [facility] Platelet Count 69(L) 155 - 369 10*3/uL LAB HEMATOLOGY METHOD 12/18/2024 5:13 AM EST [facility] MCV 101(H) 79 - 98 fL LAB HEMATOLOGY METHOD 12/18/2024 5:13 AM [facility] Comment:Results inconsistent with previous lab findings. MCH 31.3 26.0 - 32.0 pg LAB HEMATOLOGY METHOD 12/18/2024 5:13 AM EST [facility] MCHC 30.9 30.7 - 35.5 g/dL LAB HEMATOLOGY METHOD 12/18/2024 5:13 AM [facility] RDW 19.9(H) 11.5 - 14.5 % LAB HEMATOLOGY METHOD 12/18/2024 5:13 AM [facility] MPV 9.9 8.8 - 12.5 fL LAB HEMATOLOGY METHOD 12/18/2024 5:13 AM [facility] nRBC 0.0 <=0.0 per 100 WBCs LAB HEMATOLOGY METHOD 12/18/2024 5:13 AM [facility] Differential Type Automated LAB HEMATOLOGY METHOD 12/18/2024 5:13 AM [facility] Neutrophils % 50 % LAB HEMATOLOGY METHOD 12/18/2024 5:13 AM [facility] Lymphocytes % 28 % LAB HEMATOLOGY METHOD 12/18/2024 5:13 AM [facility] Monocytes % 16 % LAB HEMATOLOGY METHOD 12/18/2024 5:13 AM [facility] Eosinophils % 5 % LAB HEMATOLOGY METHOD 12/18/2024 5:13 AM [facility] Basophils % 1 % LAB HEMATOLOGY METHOD 12/18/2024 5:13 AM [facility] Immature Granulocytes % 0 % LAB HEMATOLOGY METHOD 12/18/2024 5:13 AM [facility] Neutrophils Absolute 2.15 1.60 - 6.10 10*3/uL LAB HEMATOLOGY METHOD 12/18/2024 5:13 AM [facility] Lymphocytes Absolute 1.18(L) 1.20 - 3.90 10*3/uL LAB HEMATOLOGY METHOD 12/18/2024 5:13 AM [facility] Monocytes Absolute 0.68 0.30 - 0.90 10*3/uL LAB HEMATOLOGY METHOD 12/18/2024 5:13 AM EST [facility] Eosinophils Absolute 0.19 0.00 - 0.50 10*3/uL LAB HEMATOLOGY METHOD 12/18/2024 5:13 AM EST [facility] Basophils Absolute 0.03 0.00 - 0.10 10*3/uL LAB HEMATOLOGY METHOD 12/18/2024 5:13 AM EST [facility] Immature Granulocytes Absolute 0.01 0.00 - 0.06 10*3/uL LAB HEMATOLOGY METHOD 12/18/2024 5:13 AM EST [facility] Blood Venous blood specimen / Unknown Venipuncture / Unknown 12/18/2024 4:47 AM EST 12/18/2024 4:57 AM EST [facility] - 12/18/2024 5:13 AM EST Therapeutic decision making should be based on absolute values, rather than percentages. us Leroy Aponte MD LAB BLOOD ORDERABLES Final Resul t [facility] [address] [place] [address] * (ABNORMAL) Basic Metabolic Panel, Plasma (12/18/2024 4:47 AM EST) Glucose, Plasma 85 74 - 99 mg/dL 12/18/2024 5:27 AM EST [facility] BUN, Plasma 17 7 - 21 mg/dL 12/18/2024 5:27 AM EST [facility] Creatinine, Plasma 0.81 0.70 - 1.20 mg/dL 12/18/2024 5:27 AM EST [facility] Comment: Icteric specimen. Result may be falsely decreased. Interpret result in the context of the patient's condition and other laboratory results. BUN/Creatinine Ratio 21 12/18/2024 5:27 AM EST [facility] Sodium, Plasma 132(L) 136 - 145 mmol/L 12/18/2024 5:27 AM EST [facility] Potassium, Plasma 4.6 3.6 - 4.9 mmol/L 12/18/2024 5:27 AM EST [facility] Chloride, Plasma 104 97 - 107 mmol/L 12/18/2024 5:27 AM EST [facility] CO2, Plasma 20(L) 22 - 29 mmol/L 12/18/2024 5:27 AM EST [facility] Anion Gap 8 6 - 16 mmol/L 12/18/2024 5:27 AM EST [facility] Total Calcium, Plasma 8.4(L) 8.9 - 10.2 mg/dL 12/18/2024 5:27 AM EST [facility] eGFRcr 110.8 mL/min/1.7 3m*2 12/18/2024 5:27 AM EST [facility] Comment:Reported eGFRcr in m L/min/1.73m2 is based the CKD-EPI 2020 equation that does not use a race coefficient. Blood Venous blood specimen / Unknown Venipuncture / Unknown 12/18/2024 4:47 AM EST 12/18/2024 4:56 AM EST us Leroy Aponte MD LAB BLOOD ORDERABLES Final Resul t Performing Organization Address City/[facility] Co de Phone Number [facility] [address] [place] [address] * Phosphorus, Plasma (12/18/2024 4:47 AM EST) Phosphorus, Plasma 3.7 2.5 - 4.5 mg/dL 12/18/2024 5:27 AM EST [facility] Blood Venous blood specimen / Unknown Venipuncture / Unknown 12/18/2024 4:47 AM EST 12/18/2024 4:56 AM EST us Leroy Aponte MD LAB BLOOD ORDERABLES Final Resul t [facility] [address] [place] [address] * (ABNORMAL) Hepatic function panel (12/18/2024 4:47 AM EST) Direct Bilirubin, Plasma 8.1(H) <=0.3 mg/dL 12/18/2024 5:27 AM EST [facility] Alkaline Phosphatase, Plasma 111 40 - 115 U/L 12/18/2024 5:27 AM EST [facility] Total Bilirubin, Plasma 15.9(H) 0.2 - 1.1 mg/dL 12/18/2024 5:27 AM EST [facility] Albumin, Plasma 2.8(L) 3.5 - 5.2 g/dL 12/18/2024 5:27 AM EST [facility] Total Protein 5.9(L) 6.3 - 7.9 g/dL 12/18/2024 5:27 AM EST [facility] Comment: Icteric specimen. Result may be affected, interpret result in the context of the patient's condition and other laboratory results. ALT, Plasma 35 10 - 50 U/L 12/18/2024 5:27 AM EST [facility] AST, Plasma 76(H) 10 - 50 U/L 12/18/2024 5:27 AM EST [facility] Blood Venous blood specimen / Unknown Venipuncture / Unknown 12/18/2024 4:47 AM EST 12/18/2024 4:56 AM EST us Leroy Aponte MD LAB BLOOD ORDERABLES Final Resul t [facility] [address] [place] [address] * (ABNORMAL) Prothrombin Time/INR (12/18/2024 4:47 AM EST) Prothrombin Time 26.0(H) 12.0 - 14.3 sec LAB COAGULATION METHOD 12/18/2024 5:20 AM EST [facility] INR 2.4(H) 0.9 - 1.1 LAB COAGULATION METHOD 12/18/2024 5:20 AM EST [facility] Blood Venous blood specimen / Unknown Venipuncture / Unknown 12/18/2024 4:47 AM EST 12/18/2024 4:56 AM EST Narrative [facility] - 12/18/2024 5:20 AM EST OPTIMAL INR RANGES FOR PATIENT ON ORAL ANTICOAGULANT THERAPY Prevention of venous thromboembolism INR 2.0 to 3.0 In patients with heart disease: Atrial fibrillation INR 2.0 to 3.0 Valvular heart disease INR 2.0 to 3.0 Tissue heart valves INR 2.0 to 3.0 Mechanical prosthetic valves INR 2.5 to 3.5 Prevention of recurrent [place] INR 2.5 to 3.5 us Leroy Aponte MD LAB BLOOD ORDERABLES Final Resul t Performing Organization Address City/[facility] [place] [address] * (ABNORMAL) Magnesium, Plasma (12/18/2024 4:47 AM EST) Magnesium, Plasma 1.6(L) 1.9 - 2.4 mg/dL 12/18/2024 5:27 AM EST [facility] Blood Venous blood specimen / Unknown Venipuncture / Unknown 12/18/2024 4:47 AM EST 12/18/2024 4:56 AM EST us Lreoy Aponte MD LAB BLOOD ORDERABLES Final Resul t Performing Organization Address [facility] [place] [address] * Transfuse RBC (12/18/2024 2:02 AM EST) us Leroy Aponte MD BLOOD TRANSFUSION ORDERABLES Fin al Result * Transfuse RBC: 1 Units (12/18/2024 2:02 AM EST) us Leroy Aponte MD BLOOD TRANSFUSION ORDERABLES Fin al Result * ECG Adult (12/17/2024 8:49 PM EST) EKG DIAGNOSIS CLASS Abnormal MUSE ECG Ventricular Rate 66 BPM MUSE ECG Atrial Rate [address] Interval 178 ms MUSE ECG QRSD Interval 88 ms MUSE ECG QT Interval 474 ms MUSE ECG QTC Interval 496 ms MUSE ECG P [place] 45 degrees MUSE ECG R [place] 29 degrees MUSE ECG T Wave [place] 19 degrees MUSE ECG Diagnosis Normal sinus rhythm MUSE ECG Diagnosis QTcB >= 480 msec MUSE ECG Diagnosis Abnormal ECG MUSE ECG Diagnosis MUSE ECG Diagnosis Confirmed by Jeff Worthington ([id number]) on 12/18/2024 10:06:13 AM MUSE ECG 12/17/2024 8:49 PM EST 12/18/2024 10:06 AM EST us Leroy Aponte MD ECG ORDERABLES Final Result Performing Organization Address City/[facility]/ZIP Co de Phone Number MUSE ECG * Prepare Leukocyte Reduced RBC: 1 Units (12/17/2024 8:25 PM EST) Product Code [id number] CH BLOO D BANK Dispense Status Transfused BLOOD BANK Blood Expiration Date [id number] BLOOD BANK Unit Number [id number] B LOOD BANK Product Blood Type 0600 BLOOD BANK Blood Type A- CH BLOOD BANK Crossmatch Compatible BLOOD BANK Other us Leroy Aponte MD BLOOD BANK PRODUCT ORDERABLES Fi nal Result Performing Organization Address [facility] de Phone Number BLOOD BANK [address] [place] [address], [place] * (ABNORMAL) Hemoglobin and Hematocrit, Blood (12/17/2024 5:51 PM EST) HGB 6.8(L) 13.7 - 17.5 g/dL LAB HEMATOLOGY METHOD 12/17/2024 6:14 PM EST [facility] HCT 22.2(L) 40.0 - 51.0 % LAB HEMATOLOGY METHOD 12/17/2024 6:14 PM EST [facility] Blood Venous blood specimen / Unknown Venipuncture / Unknown 12/17/2024 5:51 PM EST 12/17/2024 6:04 PM EST us Leroy Aponte MD LAB BLOOD ORDERABLES Final Resul t Performing Organization Address [facility] Co de Phone Number [facility] [address] [place] [address] * Transfuse RBC (12/17/2024 1:08 PM EST) us Ladonna BEE BLOOD TRANSFUSION ORDERABLES F inal Result * Transfuse RBC: 1 Units (12/17/2024 1:08 PM EST) us Ladonna BEE BLOOD TRANSFUSION ORDERABLES F inal Result * Prepare Leukocyte Reduced RBC: 1 Units (12/17/2024 10:05 AM EST) Product Code [id number] CH BLOO D BANK Dispense Status Transfused BLOOD BANK Blood Expiration Date [id number] BLOOD BANK Unit Number [id number] CH B LOOD BANK Product Blood Type 0600 BLOOD BANK Blood Type A- BLOOD BANK Crossmatch Compatible BLOOD BANK Other us Ladonna BEE BLOOD BANK PRODUCT ORDERABLES Final Result BLOOD BANK [address] documented in this encounter Visit Diagnoses Diagnosis [...] on 12/20/24 at 0800, Until Discontinued, Routine Given 12/20/2024 [...] dose, On Cassia 12/18/24 at 0815, Routine New Bag 12/18/2024 8:18 AM EST 2 g 25 mL/hr octreotide (SandoSTATIN) 1,000 mcg in sodium chloride 0.9 % 100 mL infusion 50 mcg/hr (5 mL/hr), 10 mcg/mL, Intravenous, Continuous, Starting on Sun12/17/24 at 1900, Until Cassia 12/18/24 at 1427, Routine New Bag 12/17/2024 8:03 [...] RN) 0846 (Given - Provider: Yi Recinos RN)205 (Given - Provider: Ana María Livingston, RN) [...] Routine 1500 (Given - Provider: Yi Recinos RN)205 (Given - Provider: Ana María Livingston RN) 0809 (Given - Provider: Radha Da Silva LPN)1600 (Canceled Entry - Provider: Automatic Discharge Provider - Comment: Automatically canceled at discontinue of medication order) magnesium sulfate IVPB 2 g (COMPLETED) 2 g, Intravenous, Once, 1 dose, On Cassia 12/18/24 at 0815, Routine 0818 (New Bag - Provider: Patricia Garcia RN) pantoprazole (Protonix) injection 40 mg 40 mg, [...] 100 mL, Rectal, Once, 1 dose, On Sun12/18/24 at 0830, Routine 0818 (Given - Provider: Patricia Garcia RN) sodium chloride 0.9 % flush 10 mL(Linked Group 1) 10 mL, Intravenous, Every 12 hours, First dose on Sun12/17/24 at 1430, Until Discontinued, Routine 0346 (Canceled Entry - Provider: Rola Huff, DEMETRIA)0818 (Given - Provider: Patricia Garcia RN)1543 (Not Given - Provider: Patricia Garcia RN - Reason: Order parameters not met - Comment: infusing) 0135 (Given - Provider: Janiya David RN)0847 (Given - Provider: Yi Recinos RN) 0200 (Given - Provider: Ana María Livingston, DEMETRIA)1430 (Canceled Entry - Provider: Automatic Discharge Provider [...] documented as of this encounter 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
--- OUTSIDE RECORDS SUMMARY | 2024-12-18 09:56 | XMS_ITS | Encounter Summary ---
Author Organization [facility] Address [address] [place] [address] Care Team Providers Care College Sports Coach Name Role Phone Pcp, No Primary Care Provider Unavailabl e Reason for Visit * Auth/Cert (Routine) Specialty Diagnoses / Procedures Referred By Contac t Referred To Contact Diagnoses Anemia Symptomatic anemia Anemia, unspecified type Alcoholic cirrhosis, unspecified whether ascites present Hemoglobin 6.3 Leroy Aponte MD [address] [place] [address] Phone: tel: fax: [facility] [address] [place] [address] Phone: tel: Referral ID Status Reason Start Date Expiration Date Visits Re quested Visits Authorized [id number] 1 1 Encounter Details Date Type Department Care Team (Late st Contact Info) Description 12/18/2024 9:56 AM EST Anesthesia Event [facility] [address] [place] [address] Liu East MD [address] [place] [address] Anesthesia Record Procedure Summary Procedure [...] Alcohol; Technique: Anatomical landmarks; Inserted by: John AUGUSTIN; Insertion Attempts: 2; Patient Tolerance: Tolerated well; Removal Date: 12/19/24; Removal Time: [id number]/17/[id number] by Jerome Mendze RN 12/19/241719 by Yi Recinos RN documented [...] any time in the past 12 m onths, were you homeless or living in a fdc (including now)? No 12/18/2024 [facility] Utilities Answer Date Recorded In the past 12 months has th e electric, gas, oil, or water company threatened to shut off services in your home? No 12/18/2024 Sex and Gender Information Value Date Recorded Sex Assigned at Not on file Legal Sex Male 2:45 PM EDT Gender Identity Not on file Sexual Orientation Not on file documented as of this encounter Functional Status * Question Answer Date of Assessment Author Precautions Environmental surveillance;Fall risk 12/18/2024 9:37 AM Patricia Johns RN * Calculated C-SSRS Risk Score (Lifetime/Recent) Answer Date of Assessment Author No Risk Indicated 12/18/2024 7:37 AM Patricia Dumont RN * Question Answer Date of Assessment Author 1. Wish to be (Past 1 Month) No 025 7:37 AM Patricia Johns RN 2. Non-Specific Active Suici joceline Thoughts (Past 1 Month) No 12/18/2024 7:37 AM Asha Johns RN 6. Suicidal Behavior (Lifetime) No 7:37 AM Patricia Johns RN documented as of this encounter Mental Status * Question Answer Entry Date Author Precautions Environmental surveillance;Fall risk 12/18/2024 9:37 AM Patricia Johns RN documented in this encounter Miscellaneous Notes * Anesthesia Postprocedure Evaluation - Félix Muñiz CRNA - 12/18/2024 11:29 AM EST Patient: Cesar Hearn Winstonosbaldo Anesthesia Type: general Vitals Value Taken Time [...] Bethany Ayers CRNA Procedures: COLONOSCOPY EGD Location: [facility] Endoscopy HPI Cesar Tay is a [...] ABG No results found for: PHART , UWR9VMR , PO2ART , SO2ART , BEART , MIL0CFH , HCTART , SODIUMART , POTASSIUMART , POCTCL , POCGLU , IONCALART , LACTATE No results found for: PH , PCO2 , PO2 , [id number] , BASEEXC , HCTSYR , KSYR , CLSYR , GLUSYR , CAION , LACTATE EKG Encounter Date: 12/17/24 ECG Adult Result Value EKG DIAGNOSIS CLASS Abnormal Ventricular Rate 66 Atrial Rate 66 [place] Interval 178 QRSD Interval 88 QT Interval 474 QTC Interval 496 P [place] 45 R [place] 29 T Wave [place] 19 Diagnosis Normal sinus rhythm Diagnosis QTcB [...] is no recent study available for direct qhnp-zi-guqd comparison. Physical Exam Airway Mallampati: I Mouth [...] Plan ASA 3 Plan was reviewed with: REGIONAL HR MANAGER Anesthesia technique(s) discussed with the patient/family: general [...] Description 01/23/2025 8:40 AM EST Office Visit [facility] [address] [place] [address] Wnipgmlulh-Fzlxg-Byp rosemary-Paul 03/06/2025 11:10 AM EST Appointment [facility] [address] [place] [address] Natalya Valentine MD [address] [place] [address] documented as of this encounter Visit Diagnoses [...] documented as of this encounter Care Teams College Sports Coach Relationship Specialty Start Date End Date Pcp, [place] [address] PCP - General Family Medicine 10/20/23 12/21/24 documented as of this encounter
--- OUTSIDE RECORDS SUMMARY | 2024-12-30 08:00 | XMS_ITS | Encounter Summary ---
Author Organization [facility] Address [address] [place] [address] Care Team Providers Care Certified Ophthalmic Technologist Name Role Phone VelasquezParam Augie HORTON Primary Care Provider [phone] Reason for Visit * Reason Comments Pre-Liver Txp Follow-up Encounter Details Date Type Department Care Team (Late st Contact Info) Description 12/30/2024 8:00 AM EST Office Visit [facility] [address] [facility] [address] [place] [address] Brionna Martinez, CRISTAL [address] [facility] [address] [place] [address] Weakness (Primary Dx); Insomnia, unspecified [...] any time in the past 12 m [facility], were you homeless or living in a fpc (including now)? No 12/18/2024 [facility] Utilities Answer Date Recorded In the past 12 months has th e [employer], gas, oil, or water company threatened to [...] 12/30/2024 7:10 AM Carlie Brandon RN * Question Answer Date of Assessment [...] 12/30/2024 7:10 AM Carlie Perkins i, RN documented as of this encounter Miscellaneous [...] history of alcohol abuse. Drinking approximately 1/5th [place] everyday for the 5 years. Last drink [...] Noted to [facility]. Likely in the setting of hemoperitoneum. Does have a history of SBP diagnosed at [facility]. Was on Rocephin. Subsequently discharged on ciprofloxacin for SBP prophylaxis. Underwent rapid transplant evaluation in patient. Patient was discharged on 10/24/2024 with a meld score of 28 on Coreg 6.25 mg twice daily and Lasix 20 mg per day along with spironolactone 50 mg perday. Ciprofloxacin for that secondary SBP prophylaxis. Alcohol related hepatitis -Yes Alcohol counseling - yes, going to [facility] Legal issues - Yes Review of [...] 0417 TRIG 72 10/20/2024 0417 TSH 2.46 10/20/2024416 Assessment and Plan Problem List Items Addressed This Visit Decompensation of cirrhosis of liver (CMS/HCC) Primary insomnia Depressive disorder Relevant Medications escitalopram (Lexapro) 10 MG tablet traZODone (Desyrel) 50 MG tablet Other Visit Diagnoses Weakness - Primary Relevant Orders GIANNAFan ezequiel Insomnia, unspecified type Relevant Medications traZODone (Desyrel) 50 MG tablet Awaiting liver transplant Relevant Orders Blessing ezequiel Tay is a 44 year old male [...] weekly labs, gave order to complete in [place] # Ascites/pedal edema: Had paracentesis 2 months [...] weight, thiamine, vitamin B complex supplementation 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 On Wellbutrin Quit tobacco >1 month [...] Description 01/23/2025 8:40 AM EST Office Visit [facility] [address] [place] [id number] Gkwhhudzip-Ynqjo-Jqc rosemary-Paul 03/06/2025 11:10 AM EST Appointment [facility] [address] [place] [id number] Natalya Valentine MD [address] [place] [address] documented as of this encounter Visit Diagnoses [...] documented as of this encounter Care Teams Certified Ophthalmic Technologist Relationship Specialty Start Date End Date Param Eng DO [address] [place] [address] [place] [address] PCP - General 12/22/24 documented as of this encounter
--- OUTSIDE RECORDS SUMMARY | 2025-01-02 09:05 | XMS_ITS | Encounter Summary ---
Author Organization Healthcare Address [address] [place] [address] Care Team Providers Care Cafeteria Or Lunchroom Checker Name Role Phone Param Eng DO Primary Care Provider [phone] Reason for Visit * Auth/Cert (Routine) Specialty Diagnoses / Procedures Referred By Contac t Referred To Contact Diagnoses Decompensation of cirrhosis of liver (CMS/HCC) Satnam Beckford MD [address] [place] [phone] Phone: tel: fax: [facility] [address] [place] [address] Phone: tel: Referral ID Status Reason Start Date Expiration Date Visits Re quested Visits Authorized [id number] 1 1 Encounter Details Date Type Department Care Team (Late st Contact Info) Description 01/02/2025 9:05 AM EST - 01/16/2025 5:32 PM EST Hospital Encounter [facility] [address] [place] [address] Satnam Beckford MD [address] [place] [address] Maciel Olson MD [address] [place] [address] Decompensation of cirrhosis of liver (CMS/HCC) (Primary Dx); Elevated INR; Liver replaced by transplant Discharge Disposition: Home or Self Care Social History Tobacco Use Types Packs/Day Years Used Date Smoking Tobacco: Never Passive Smoke Exposure: Current Smokeless Tobacco: Current Chew Alcohol Use Standard Drinks/Week Comments Not Currently 0 (1 standard drink = 0.6 oz pur [...] or relatives? Twice a week 01/02/2025 Attends Pentec[employer] Services Not on file 01/02 Do you belong to any clubs o r organizations such as episcopalian groups, unions, fraternal or athletic groups, or [...] housing, medical care, and heating? Hard [facility]02[facility] Occupational Stress Questionnaire Answer Date Recorded [...] any time in the past [address] [facility], were you homeless or living in a correction (including now)? 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 OPERATOR) to steady your nerves or to [...] Sign Reading Time Taken Comments Blood Pressure 137/86 01/16/2025 12:02 PM EST Pulse 82 01/16/2025 12:02 PM EST Temperature 36.6 C (97.9 F) 01/16/2025 12:02 PM EST Respiratory Rate 18 01/16/2025 12:0 2 PM EST Oxygen Saturation 95% 01/16/2025 12: 02 PM EST Inhaled Oxygen Concentration - - Weight 97.4 kg (214 lb 11.7 oz) 01/16/2025 6:10 AM EST Height 188 cm (6' 2.02 ) 01/02/2025 7:48 PM EST Body Mass Index 27.56 01/02/2025 7:48 PM EST documented in this encounter Functional Status * Question Answer Date of Assessment Author Precautions Environmental survei llance;Fall risk 01/16/2025 12:00 PM EST Armida Oscar RN * AUDIT-C Score Answer Date of Assessment Author 0 01/02/2025 12:41 PM EST Clarissa Kwon RN * Question Answer Date of Assessment Author Q1: How often do you have a drink containing alcohol? Never 01/02/2025 12:41 PM EST Mariela Kwon RN Q2: How many drinks containing alcohol do you have on a typical day when you are drinking? Patient does not drink 01/02/2025 12:41 PM EST Mariela Kwon RN Q3: How often do you have six or more drinks on one occasion? Never 01/02/2025 12:41 PM EST Dear, Mariela Carmona RN * Question Answer Date of Assessment Author Backup Resp Rate (Set) 16 01/03/2025 3:01 PM EST Blaine Alexis * Question Answer Date of Assessment Author Precautions Environmental survei llance;Fall risk 01/16/2025 12:00 PM EST Armida Oscar RN * Calculated C-SSRS Risk Score (Lifetime/Recent) Answer Date of Assessment Author No Risk Indicated 01/16/2025 12:00 PM EST Armida Oscar RN * Question Answer Date of Assessment Author 1. Wish to be (Past 1 Month) No 025 12:00 PM Armida Parish RN 2. Non-Specific Active Suici joceline Thoughts (Past 1 Month) No 01/16/2025 12:00 PM Armida Parish RN 6. Suicidal Behavior (Lifetime) No 12:00 PM Armida Parish RN documented as of this encounter Mental Status * Question Answer Entry Date Author Precautions Environmental survei llance;Fall risk 01/16/2025 12:00 PM EST Armida Oscar RN * Question Answer Entry Date Author Backup Resp Rate (Set) 16 01/03/2025 3:01 PM EST Blaine Alexis documented in this encounter Discharge Instructions * Discharge Instructions* Estee Rosales - 01/16/2025 3:53 PM EST Discharge Instructions: Precautions: - Handwashing: is the best way to prevent infection. - It is important to wear a face mask after liver transplant. You should be wearing a face mask everywhere outside of your home for the first three months after your surgery. If you are treated for rejection, then you'll need to start wearing your mask again when you go outside your home. - Avoid live plants and touching soil for at least 3 months after transplant. Houseplants do not have to be removed, but they should not be kept in your immediate living space or sleeping areas. After 3 months post-operative, you must wear gloves and a mask when working in soil. - continue using your incentive spirometer at home, while you are awake. - Do not use of alcohol, tobacco or tobacco containing products, or illegal drugs - Avoid prolonged exposure to the sun, use sunscreen on exposed skin, wear hats and long sleeves. - Avoid large crowds for the first three months post-operative - Avoid close contact with anyone who is ill (colds, fevers, sore throats) - Avoid contact with anyone who has had a live-virus vaccination. Medications: - Do not adjust, stop, or start any medications unless instructed by your provider. - You will be reviewing your discharge medication list with the transplant pharmacist. - You may take 500mg of Tylenol every 6 hours as needed for additional pain control. We do not recommend taking more than 2000 mg of Tylenol in a 24-hour period after liver transplant. - You should take 500mg methocarbamol every 8 hours as needed for muscle spasms. - You have been prescribed narcotic pain medications to be taken as needed for severe pain. - You should take the stool softener prescribed as long as you are taking narcotic pain medication.If you develop diarrhea, please stop taking your stool softener. Immunosuppression: Take immunosuppression as orderd, including steroid taper. {TXPimmunomeds:00831} Nutrition: - Please drink your boost shakes as recommended during your Dietary Education with our Dietitian. - Some foods will taste different due to your medications, please let your provider know so that wemay address in your follow-up clinic. - Weight loss is common after transplant, if you have no appetite please discuss with your providerin your clinic follow-up. If you get full very fast, try eating five or six small meals during the day. - We recommend eating a healthy diet with lean protein, fruits and vegetables. Wash all produce thoroughly - Please do not eat raw fish, under cooked meat (cook to medium well) or eggs, and soft cheeses as these increase your risk for food borne illness. - Please drink plenty of water, or non-caffeinated beverages. - Continue low sodium dietary instructions until discussed with your provider. - If you need additional nutrition assistance, please ask to meet with our Registered Dietitian Activity: - Do not drive until your physician says it is okay. - Walking and climbing stairs is okay and encouraged. - No lifting anything >5-10lbs (anything greater than 1 gallon of milk) for the next 6 weeks. - Avoid swimming in public pools, lakes, gutierrez, oceans for at least 6 months. We do not recommend soaking in hot tubs. - You may resume sexual activity once you feel strong enough. Please practice safe sex to avoid risk of sexually transmitted diseases. Avoid while on anti-rejection medications (especially Mycophenolate) as the effects of anti- rejection medications on a fetus are still unknown. Dressing: - Please shower. Let the soapy water run over your incisions. Do not scrub at your incisions. Afteryou shower, pat your incisions dry with a clean towel. - We do not recommend application of any ointments or creams at this time. {txpincisionclosure:54525} Bring to your clinic appointments: - please take and record your blood pressure 30 minutes before taking any blood pressure medications, and then 1 hour after taking blood pressure medications. Record this in your provided book to bring with you to clinic. - Please take and record your temperature every morning and evening and record in your book. - Please check and record your blood sugars as directed. Potential Issues: - It is normal to have some pain and soreness, especially around the incisions - Should you need to call your RN Coordinator, the emergency number is [phone]. This is an answering service, you will ask to speak to the on- call liver community coordinator for high school . - Call for fever of 100.5F or greater - Call with changes in your wound drainage (if amount is increased, bloodier, smells different) - Call if you have bright red blood in urine or stool - Call with sudden weakness, nausea, vomiting, diarrhea (>6 stools daily), of constipation lasting more than 2 days. - Call is your pain is not relieved by pain medication - Call if your blood pressure is abnormal: top number is consistently 180 or higher, or consistently less than 100, and if the bottom number is consistently greater than 100. Follow Up: -You will be scheduled to follow up in clinic with one of our Advanced Practice Providers. Questions or Concerns and Appointments please call our Transplant Surgery Clinic [phone]. If there are questions or concerns after discharge from the hospital after hours, weekends, and holidays please call [phone] to reach the RN Coordinator inclusion paraeducator documented in this encounter Medications at Time of Discharge acetaminophen (Tylenol) 500 MG tablet Take 1 tablet by mouth every 6 hours as needed for headaches or pain. Max 2000 mg per 24 hours. 01/06/2025 amLODIPine (Norvasc) 10 MG tablet Take 1 tablet by mouth daily. 30 tablet 5 01/16/2025 aspirin 81 MG EC tablet Take 1 tablet by mouth daily. 30 tablet 11 01/06/2025 carvedilol (Coreg) 25 MG tablet Take 1 tablet by mouth 2 times a day. 60 tablet 2 01/06/2025 ergocalciferol (Vitamin D-2) 1.25 MG (68188 UT) capsule Take 1 capsule by mouth 1 time per week. Fridays 4 capsule 1 01/16/2025 escitalopram (Lexapro) 10 MG tablet Take 1 tablet by mouth daily. 30 tablet 3 12/30/2024 fluconazole (Diflucan) 200 MG tabletIndications :Liver replaced by transplant Take 1 tablet by mouth daily for 17 days. 17 tablet 01/16/2025 5 methocarbamol (Robaxin) 500 MG tablet Take 1 tablet by mouth 3 times a day as needed for muscle spasms. 60 tablet 1 01/15/2025 Multiple Vitamins-Minerals (Mens Multi Health Formula) tablet Take 1 tablet by mouth daily. 01/06/2025 nutrional drink glucose control (Boost Glucose Control) liquid liquid Drink 1 supplement up to 3 times a day or As Directed as a nutritional supplement. Flavor preference: per patient. Please dispense up to 4 cases at a time per patient request 237 mL 11 01/15/2025 pantoprazole (Protonix) 40 MG EC tablet Take 1 tablet by mouth daily. Do not crush, chew, or split. 30 tablet 2 01/16/2025 predniSONE (Deltasone) 10 MG tablet Take 6 tablets by mouth daily for 5 days, THEN 5 tablets daily for 5 days, THEN 4 tablets daily for 5 days, THEN 3 tablets daily for 5 days, THEN 2 tablets daily for 5 days, THEN 1 tablet daily. 130 tablet 01/16/2025 6 senna-docusate sodium (Senokot-S) 8.6-50 MG tablet Take 1 tablet by mouth 2 times a day as needed for constipation. 60 tablet 01/06/2025 sulfamethoxazole- trimethoprim (Bactrim) 400-80 MG tabletIndications :Liver replaced by transplant Take 1 tablet by mouth daily. 30 tablet 5 01/06/2025 traZODone (Desyrel) 50 MG tabletIndications :Insomnia, unspecified type Take 1 tablet by mouth nightly. 90 tablet 1 12/30/2024 ursodiol (Actigall) 300 MG capsule Take 2 capsules by mouth 2 times a day. 120 capsule 5 01/16/2025 valGANciclovir (Valcyte) 450 MG tabletIndications :Liver replaced by transplant Take 1 tablet by mouth daily. Do not crush or chew. 30 tablet 2 01/05/2025 ferrous sulfate 324 MG tablet delayed-release Take 1 tablet by mouth daily with breakfast. Do not crush, chew, or split. 30 tablet 12/21/2024 5 buPROPion SR (Wellbutrin SR) 150 MG 12 hr tabletIndications :Tobacco use disorder Take 1 tablet by mouth daily for 3 days, THEN 1 tablet 2 times a day. Do not crush, chew, or split. 123 tablet 1 11/21/2024 5 levoFLOXacin (Levaquin) 750 MG tabletIndications :Liver replaced by transplant Take 1 tablet by mouth daily for 2 doses. 2 tablet 01/16/2025 5 Misc. Devices (Pill Box 7 Day) misc Pill box 1 each 01/06/2025 5 mycophenolate (CellCept) 250 MG capsule Take 3 capsules by mouth 2 times a day. Z94.4. Txp Date: 01/03/25 180 capsule 2 01/15/2025 5 tacrolimus 1 MG PO capsuleIndication s:Liver Transplant Status Take 2 capsules by mouth every morning AND 1 capsule every evening. Z94.4. transplant date 01/03/25. 90 capsule 2 01/16/2025 5 documented as of this encounter Miscellaneous Notes * Consults - Mela Sterling RD - 01/16/2025 4:53 PM EST Adult Nutrition Evaluation Note Orly White 45 y.o. male CSN: [id number] Room/Bed 213/213A Nutrition evaluation type: follow-up Reason for evaluation: Index Admission: Post-transplant discharge phase Hospital course: 44y/oM w/ hx decompensated EtOH related cirrhosis now s/p OLT 01/03. Increasing tbili; MRCP w/ biliary stricture. ERCP 01/12. Past medical/ surgical history: Past Medical History[1] Surgical History[2] Social history: Additional comments: Visited pt/ at bedside this AM. Pt reports appetite/intake continue to improve and that he is drinking Boost between meals. Boost Rx to [facility] for outpatient use. w/ questions from post-transplant nutrition education regarding fruit intake, food safety, etc; answered to satisfaction. Reiterated need to discontinue use of herbal alternative to chewing tobacco d/t potential for interaction with immunosuppressant; pt/ verbalized understanding. Vitals and Basic Assessment: BP: 137/86 Temp: 36.6 ??C (97.9 ??F) Invasive Ventilator Initiated (ETT/Trach Only): Yes Oxygen Therapy: None (Room air) O2 Delivery Method: Nasal cannula Juanpablo Coma Scale Score: 15 Rosendo Scale Score: 20 Danyel/Cubbin Pressure Risk Score: 42 Most Recent BM Date: 01/15/25 (per pt) GI Symptoms: None Edema: Generalized, Right lower extremity, Left lower extremity Allergies: Allergies[3] Medications: Current Scheduled Medications[4] Meds were reviewed: Yes Labs: Labs in last 18 hours BMP Na 138 Cl 107 BUN 45 (H) Glu 118 (H) K 5.1 (H) Co2 20 (L) Cr 1.28 (H) Ca 8.3 (L) iCa ?? Mg 2.0, Phos 4.0 Lactate ?? LFT AST 23 AlkPhos 93 T Prot 4.8 (L) ALK 55 (H) Bili 4.5 (H) Alb ?? D.Bili ?? Lab Results Component Value Date HGBA1C <4.0 10/21/2024 Anthropometrics: Height: 188 cm (6' 2.02 ) Weight: 97.4 kg (214 lb 11.7 oz) BMI (Calculated): 27.56 Weight Evaluation: Overweight (BMI 25-29.9) [place] Body Weight (kg): 86.4 Percent [place] Body Weight: 112 Adjusted Body Weight (kg): (-) Recent weights this admission: Date/Time Weight 01/15/25 0609 95.8 kg (211 lb 3.2 oz) 01/14/25 0532 95.5 kg (210 lb 8.6 oz) 01/13/25 0530 96 kg (211 lb 10.3 oz) 01/12/25 0513 96.4 kg (212 lb 8.4 oz) 01/11/25 0607 96.3 kg (212 lb 4.9 oz) 01/10/25 0529 97.2 kg (214 lb 4.6 oz) 01/09/25 0610 101 kg (223 lb 12.3 oz) Wt Readings from Last 10 Encounters: 01/16/25 97.4 kg (214 lb 11.7 oz) 12/30/24 108 kg (237 lb 3.4 oz) 12/18/24 108 kg (238 lb 1.6 oz) 12/17/24 110 kg (241 lb 10 oz) 12/03/24 98.8 kg (217 lb 13 oz) 11/25/24 99 kg (218 lb 4.1 oz) 11/11/24 100 kg (220 lb 7.4 oz) 11/04/24 110 kg (242 lb 4.6 oz) 11/04/24 109 kg (240 lb 4.8 oz) 10/20/24 117 kg (257 lb 15 oz) Estimated Needs: Kcal/ K-35 Kcal Provided: 2471-5959 Kcal Needs Based On: Current weight Gm Protein/ Kg : 1.5-2 Protein Provided: 145-193 Protein Needs Based On: Current weight Metabolic Cart Study Results: Current Nutrition Intake: Diet Supplements: Boost Glucose Control Diet Order: Adult Diet Diet Texture: Regular Electrolyte Restriction: Low phosphorus Other Restrictions: (Solid Organ Transplant) Percent Meals Eaten (%): 50% average x 6 meals Diet Experience and Nutrition History: Diet Education Provided: Yes (Post-transplant) Pertinent home medications: Pentecostal needs: Nutrition Focused Physical Exam: Physical exam performed on (date): 01/07/2025 Temples (muscles): Mild Clavicle (muscle): Mild Shoulder (muscle): None Interosseous (muscle): None Orbital (fat): None Triceps (fat): Mild Energy Intake: <75% EER x >1 month Assessment of Malnutrition: Malnutrition Identified: Yes Meets Criteria For: Moderate malnutrition In Context Of: Chronic illness/ injury Based On: Mild muscle mass loss, Moderately reduced energy intake Present on Admission: Yes Nutrition Problem: Inadequate oral intake related to current clinical condition as evidenced by NPO. Status of Nutrition Diagnosis: Resolved Increased nutrient needs kcal, protein related to cirrhosis s/p OLT as evidenced by increased metabolic demand associated w/ healing. Status of Nutrition Diagnosis: Ongoing Nutrition Interventions and Recommendations: - Continue Regular, Solid Organ Transplant diet -- Removing low phosphorus restriction now that WNL - Continue Boost Glucose Control TID to supplement Nutrition Monitoring and Goals: Pt will tolerate PO diet >=75% on average (not met, continue) Acuity Level: 2 Mela Sterling, RD, LD [1] Past Medical History: Diagnosis Date Anxiety Ascites Cirrhosis (CMS/HCC) Depression Enterocolitis due to Clostridium difficile, not specified as recurrent 11/04/2024 Esophageal varices GERD (gastroesophageal reflux disease) Hepatic encephalopathy (CMS/HCC) Hypertension Patient on waiting list for liver transplant 12/30/2024 SBP (spontaneous bacterial peritonitis) Tobacco use disorder [2] Past Surgical History: Procedure Laterality Date VASECTOMY [3] Allergies Allergen Reactions Amoxicillin Hives and Rash Childhood allergy [4] amLODIPine, 10 mg, Oral, Daily aspirin, 81 mg, Oral, Daily bisacodyl, 10 mg, Rectal, Daily buPROPion SR, 150 mg, Oral, BID carvedilol, 25 mg, Oral, BID ergocalciferol, 50,000 Units, Oral, Weekly escitalopram, 10 mg, Oral, Daily fentaNYL, , , ferrous sulfate, 324 mg, Oral, Daily with breakfast fluconazole, 200 mg, Oral, Daily heparin (porcine), 5,000 Units, Subcutaneous, q8h insulin lispro, 0-5 Units, Subcutaneous, TID with meals insulin lispro, 0-3 Units, Subcutaneous, Twice at night levoFLOXacin, 750 mg, Oral, Daily methocarbamol, 500 mg, Oral, 4x daily midazolam, , , mycophenolate, 750 mg, Oral, BID pantoprazole, 40 mg, Oral, Daily polyethylene glycol, 17 g, Oral, Daily predniSONE, 60 mg, Oral, Daily FOLLOWED BY [START ON 01/21/2025] predniSONE, 50 mg, Oral, DailyFOLLOWED BY [START ON 01/26/2025] predniSONE, 40 mg, Oral, Daily FOLLOWED BY [START ON 01/31/2025] predniSONE, 30 mg, Oral, Daily FOLLOWED BY [START ON 02/05/2025] predniSONE, 20 mg, Oral, Daily FOLLOWED BY [START ON 02/10/2025] predniSONE, 10 mg, Oral, Daily senna-docusate, 2 tablet, Oral, BID Insert peripheral IV, , , Once AND Saline lock IV, , , Once AND sodium chloride, 10 mL, Intravenous, q12h AND sodium chloride, 10 mL, Intravenous, PRN Insert peripheral IV, , , Once AND Saline lock IV, , , Once AND sodium chloride, 10 mL, Intravenous, q12h AND sodium chloride, 10 mL, Intravenous, PRN Insert peripheral IV, , , Once AND Saline lock IV, , , Once AND sodium chloride, 10 mL, Intravenous, q12h AND sodium chloride, 10 mL, Intravenous, PRN Insert peripheral IV, , , Once AND Saline lock IV, , , Once AND sodium chloride, 10 mL, Intravenous, q12h AND sodium chloride, 10 mL, Intravenous, PRN sodium chloride, 10 mL, Intravenous, q12h sulfamethoxazole-trimethoprim, 1 tablet, Oral, Daily tacrolimus, 1 mg, Oral, BID (0600 & 1800) traZODone, 50 mg, Oral, Nightly ursodiol, 600 mg, Oral, BID valGANciclovir, 450 mg, Oral, Daily * Progress Notes - Gabriela Kinney RN - 01/16/2025 1:10 PM EST Case Management Discharge Note Orly White 45 y.o. male CSN: [id number] Admission: 01/02/2025 9:05 AM Primary Problem: Decompensation of cirrhosis of liver (CMS/HCC) Primary Coffee Urn Attendant: Assistance Available at Discharge: Current Outpatient/Agency/Support Group: clinic(s) Availability of Care Givers (#Hours): 24 hours Family/Coffee Urn Attendant(s) Willingness Assessed to care for patient at home: Yes Family/Coffee Urn Attendant(s) Readiness Assessed to care for patient at home: Yes Housing Circumstances-Z Codes: Patient Referred to Financial or Community Resources: Discharge Facility/Level of Care Needs: Discharge Facility/Level of Care Needs: 1-Home or Self Care Patient's Choice of Community Agency(s): Patient/Family Anticipated Services at Transition: Patient/Family Anticipated Services at Transition: outpatient care DME/Equipment Needed after Discharge: Equipment Currently Used at Home: none Equipment Needed After Discharge: walker, rolling Readmission Within the Last 30 Days: Readmission Within the Last 30 Days: no previous admission in last 30 days Medicare Documentation: Follow-up: No follow-up provider specified. Discharge Transportation: Transportation Anticipated: family or friend will provide Transportation Home at Discharge: Family/Friend will Provide Has discharge transport been arranged?: No Follow Up Transport: Transportation Needed to Follow up Appoinments: Family/Friend will Provide Additional Comments: Pt is medically appropriate for discharge. Pt reports his will be available to provide transportation home at discharge. Discharge plan is as follows: Future Appointments Encounter Information Provider Department Dept Phone Address 03/06/2025 [facility] [phone] [address] [facility] [address] PT/OT recs: home with 24-hour assistance, outpatient PT/OT, rolling walker Pt reports he will have the assistance of his spouse at home PT to be provided with a script for outpatient PT/OT on day of discharge. Referral for rolling walker sent to [facility] delivered to bedside. Transportation: Pt states she will provide transportation home. CM discussed pt discharge plan with care team and with patient. Pt verbalized understanding. No additional CM discharge needs Identified or communicated. Gabriela Kinney RN * Progress Notes - Ginny Sutton, PharmD - 01/16/2025 10:58 AM EST TRANSPLANT PHARMACIST POST-TRANSPLANT DISCHARGE NOTE - INDEX ADMISSION Patient name: Orly White Discharge date: 01/16/25 Discharge location: Home : 1980 AGE: 44 y.o. Transplant date: 01/03/2025 Type of transplant: liver Indication for transplant: EtOH Previous transplant(s): No CMV status: D+/R+ Donor HBcAb positive? no Other important donor/recipient considerations: None Induction: none Hospital course was significant for the following: Rising bilirubin, patient underwent MRCP 01/11. MRCP noted apparent narrowing in the extrahepatic duct at the suspected anastomosis is likely artifactual given presence of adjacent susceptibility artifact and lack of associated proximal bile duct dilatation. Bilirubin continued to rise so Zosyn started empirically for cholangitis & patient underwent ERCP 01/12: cholangiogram w/o anastomotic mis match or stricture s/p balloon sweeps (removed contrast, bile) and sphincterotomy, stent x1 placed into R main hepatic duct. Liver biopsy 01/14 due to elevated LFTs: acute rejection with treatment effect (at least moderate inseverity) + cholangitis. Patient received methylpred IV 500 01/13-01/15 followed by PO prednisone taper. Allergies: Amoxicillin Current Medications: Home Medications TAKE these medications mycophenolate 250 MG capsule Take 3 capsules by mouth 2 times a day. Z94.4. Txp Date: 01/03/25 Commonly known as: CellCept This medication is very important: It prevents organ rejection. predniSONE 10 MG tablet Take 6 tablets by mouth daily for 5 days, THEN 5 tablets daily for 5 days, THEN 4 tablets daily for5 days, THEN 3 tablets daily for 5 days, THEN 2 tablets daily for 5 days, THEN 1 tablet daily. Commonly known as: Deltasone Start taking on: January 16, 2025 This medication is very important: It prevents organ rejection. tacrolimus 1 MG capsule Take 2 capsules by mouth every morning AND 1 capsule every evening. Z94.4. transplant date 01/03/25. Commonly known as: Prograf This medication is very important: It prevents organ rejection. fluconazole 200 MG tablet Take 1 tablet by mouth daily for 17 days. Commonly known as: Diflucan This medication is very important: It prevents dangerous infection. Notes to patient: Prevent fungal infection Duration: 1 month levoFLOXacin 750 MG tablet Take 1 tablet by mouth daily for 2 doses. Commonly known as: Levaquin This medication is very important: It prevents dangerous infection. sulfamethoxazole-trimethoprim 400-80 MG tablet Take 1 tablet by mouth daily. Commonly known as: Bactrim This medication is very important: It prevents dangerous infection. Notes to patient: Prevent bacterial infection Duration: 6 months valGANciclovir 450 MG tablet Take 1 tablet by mouth daily. Do not crush or chew. Commonly known as: Valcyte This medication is very important: It prevents dangerous infection. Notes to patient: Prevent viral infection Duration: 3 months acetaminophen 500 MG tablet Take 1 tablet by mouth every 6 hours as needed for headaches or pain. Max 2000 mg per 24 hours. Commonly known as: Tylenol amLODIPine 10 MG tablet Take 1 tablet by mouth daily. Commonly known as: Norvasc Notes to patient: Lower blood pressure aspirin 81 MG EC tablet Take 1 tablet by mouth daily. buPROPion SR 150 MG 12 hr tablet Take 1 tablet by mouth daily for 3 days, THEN 1 tablet 2 times a day. Do not crush, chew, or split. Commonly known as: Wellbutrin SR Start taking on: November 21, 2024 carvedilol 25 MG tablet Take 1 tablet by mouth 2 times a day. Commonly known as: Coreg Notes to patient: Lower blood pressure ergocalciferol 1.25 MG (96783 UT) capsule Take 1 capsule by mouth 1 time per week. Fridays Commonly known as: Vitamin D-2 Notes to patient: Vitamin D supplement escitalopram 10 MG tablet Take 1 tablet by mouth daily. Commonly known as: Lexapro ferrous sulfate 324 MG tablet delayed-release Take 1 tablet by mouth daily with breakfast. Do not crush, chew, or split. Mens Multi Health Formula tablet Take 1 tablet by mouth daily. methocarbamol 500 MG tablet Take 1 tablet by mouth 3 times a day as needed for muscle spasms. Commonly known as: Robaxin nutrional drink glucose control liquid liquid Drink 1 supplement up to 3 times a day or As Directed as a nutritional supplement. Flavor preference: per patient. Please dispense up to 4 cases at a time per patient request pantoprazole 40 MG EC tablet Take 1 tablet by mouth daily. Do not crush, chew, or split. Commonly known as: Protonix Pill Box 7 Day misc Pill box senna-docusate sodium 8.6-50 MG tablet Take 1 tablet by mouth 2 times a day as needed for constipation. Commonly known as: Senokot-S traZODone 50 MG tablet Take 1 tablet by mouth nightly. Commonly known as: Desyrel ursodiol 300 MG capsule Take 2 capsules by mouth 2 times a day. Commonly known as: Actigall Maintenance Immunosuppression/Graft Function: Current immunosuppression regimen: CNI: IR tacrolimus (Prograf) Antimetabolite: mycophenolate mofetil (Cellcept) Prednisone: currently on taper Other: none Infection Prophylaxis: PJP prophylaxis: On SMZ-TMP per protocol, to be continued x 6 months post- transplant (anticipated discontinuation date: 07/03/25). Antiviral prophylaxis: On valganciclovir per protocol, to be continued x 3 months post-transplant (anticipated discontinuation date: 04/05/25). Antifungal prophylaxis: On fluconazole per protocol, to be continued x 1 month post-transplant (anticipated discontinuation date: 02/02/25). Discharge Medications: Will plan for patient to utilize [facility] to obtain discharge medications at time of discharge from [facility]. Prescriptions to be provided by [facility] providers. The transplant team will assist with any discharge needs during transplant clinic visits. Patient Education: I met with the patient and spouse, Patricia, today to provide discharge medication education. The majority of the time was spent reviewing post-transplant immunosuppressive and anti-infective prophylaxis medications. The importance of adherence was emphasized along with the possibility of frequent immu nosuppression dose changes. Patient was provided written instructions as well as verbal review of medications. Patient verbalized understanding. Education assessment: No concerns Items for Outpatient Follow Up: Immunosuppression/rejection Mycophenolate reduced to 750 mg PO BID in setting of cholangitis, optimize to 1g BID as appropriate. Prednisone taper: to start on prednisone 60 mg daily on 01/16 then decrease by 10 mg every 5 days. Cholangitis: Zosyn initiated on 01/11, transitioned to levofloxacin 750 q24 on 01/15. Plan for 7 days after ERCP, to end 01/18. Ursodiol 600 mg PO BID (increased from 300 BID on 01/16) Hypertension: BP in the 140s/80s prior to discharge Pre-transplant coreg 6.25 mg PO BID Post-transplant: coreg 25 mg PO BID, amlodipine 10 mg daily Vitamin D deficiency: preop 25HD 16.2, ergocalciferol 50,000 units weekly started 01/09. Recommend repeat 25HD in 8 weeks. Medication access: patient has coverage through [facility] and Medicaid, prefers to use Medicaid to get allmeds through [facility]; expressed desire to utilize [facility] post-operatively. Ginny Sutton, [facility] Clinical Pharmacist * Care Plan - Armdia Oscar RN - 01/16/2025 9:36 AM EST Problem: Adult Inpatient Plan of Care Goal: Plan of Care Review Outcome: Ongoing, Progressing Flowsheets (Taken 01/16/2025 0936) Progress: improving Plan of Care Reviewed With: patient Goal: Patient-Specific Goal (Individualized) Outcome: Ongoing, Progressing Goal: Absence of Hospital-Acquired Illness or Injury Outcome: Ongoing, Progressing Goal: Optimal Comfort and Wellbeing Outcome: Ongoing, Progressing Problem: Fall Injury Risk Goal: Absence of Fall and Fall-Related Injury Outcome: Ongoing, Progressing Problem: Anxiety Signs/Symptoms Goal: Optimized Energy Level (Anxiety Signs/Symptoms) Outcome: Ongoing, Progressing Goal: Optimized Cognitive Function (Anxiety Signs/Symptoms) Outcome: Ongoing, Progressing Goal: Improved Mood Symptoms (Anxiety Signs/Symptoms) Outcome: Ongoing, Progressing Goal: Improved Sleep (Anxiety Signs/Symptoms) Outcome: Ongoing, Progressing Goal: Enhanced Social, Occupational or Functional Skills (Anxiety Signs/Symptoms) Outcome: Ongoing, Progressing Goal: Improved Somatic Symptoms (Anxiety Signs/Symptoms) Outcome: Ongoing, Progressing Problem: Functional Deficit Goal: Improved Balance and Postural Control Outcome: Ongoing, Progressing Goal: Optimal Cognitive Function Outcome: Ongoing, Progressing Goal: Optimal Coordination Outcome: Ongoing, Progressing Goal: Improved Muscle Strength Outcome: Ongoing, Progressing Goal: Improved Muscle Tone Outcome: Ongoing, Progressing Goal: Optimal Range of Motion Outcome: Ongoing, Progressing Goal: Compensation for Sensory Deficit Outcome: Ongoing, Progressing Problem: Skin Injury Risk Increased Goal: Skin Health and Integrity Outcome: Ongoing, Progressing Problem: Infection Goal: Absence of Infection Signs and Symptoms Outcome: Ongoing, Progressing * Progress Notes - Luis Elizalde - 01/16/2025 9:30 AM EST Physical Therapy Treatment Patient Name: Orly White Today's Date: 01/16/2025 PT Discharge Recommendations: Outpatient PT, Home with assistance Equipment Recommended: Rolling walker Subjective Ready to participate today and wanting to go home. Hasn't had any dizziness today. Participants in Care Family/Caregiver Present: Yes Family/Caregiver: Spouse Presentation Oxygen Therapy: None (Room air) Lines and Tubes: Intravenous access Pre-Session: Sitting in chair, Lines intact Pre-Session Comments: RN agreeable to session. Post-Session: Sitting in chair, RN notified, Lines intact Post-Session Comments: Patient positioned for comfort with all needs in reach. at bedside. Precautions Medical Precautions: Post-Surgical precautions, Fall precautions Post-Surgical Precautions: Abdominal: no lifting >10# Objective Pain none Delirium Screening RASS: Alert and calm Confusion Assessment Method-ICU (CAM-ICU/PCAM-ICU) Feature 3: Altered Level of Consciousness: Negative Bed Mobility Bed Mobility Exam: Supine to Sit Level of [place]: Stand-by assist Physical/Nonphysical Assist: Verbal Cues Bed Mobility Exam: Sit to Supine Level of [place]: Stand-by assist Physical/Nonphysical Assist: Verbal Cues Transfers Transfer Exam: Sit to stand Level of [place]: Independent Transfer Exam: Stand to Sit Level of [place]: Independent Ambulation Device: Rolling walker Assistance: Standby assist Distance : 400ft Ambulation Comments: Slow speed and slightly unsteady but no LOB. Cues for safe direction of RWx. Balance Static Sitting Balance Static Sitting-Level of Assistance: Independent Dynamic Sitting Balance Level of Assistance: Independent Static Standing Balance Static Standing-Level of Assistance: Independent Dynamic Standing Balance Dynamic Standing Level of Assistance: Independent Therapeutic Activity (14 minutes) Performed above tasks in bed mobility, transfers, ambulation and balance sections for improvement in functional strength, upright activity tolerance, and improved independence with mobility. Consistent verbal and tactile cues required for initiation, sequencing, and safety with functional tasks. Neuromuscular Re-Education (10 minutes) Vestibular Evaluation Subjective Onset: Recent increase in dizziness with head turning and ambulation after liver transplant Symptoms: off balance and lightheadedness Description: induced by motion and induced by position changes Progression of Symptoms: better Duration: minutes Aggravating Factors: head movement and motion Easing Factors: rest Hearing Impairment: No Changes in Hearing Since Onset: No Vision Changes Since Onset: No Recent Viral Load: No Diplopia: No Falls: No Objective CENTERLESS GRINDER Screen Cervical Spine ROM: not limited Smooth Pursuit: intact Saccades: intact Spontaneous Nystagmus: No Gaze-Evoked Nystagmus: No Vestibular Occular Reflex Testing VOR Slow: intact Head Thrust: negative bilaterally Gaze Stability: intact Convergence/divergence (near point convergence): intact Positional Testing Left [place]-Hallpike: negative with no provocation of symptoms or nystagmus. Right [place]-Hallpike: negative with no provocation of symptoms or nystagmus. Right roll test: negative with no provocation of symptoms or nystagmus. Left roll test: negative with no provocation of symptoms or nystagmus. Canalith Repositioning Maneuvers None performed due to negative testing above Response Pt had no adverse response to PT intervention today and did well following cues for safety with functional task training. BP 146/69. Education Pt given education regarding PT plan for discharge with outpatient therapy for further strengthening Assessment Great progression with ambulation today without symptoms of dizziness and stable BP. Pt negative for BPPV. Safe to return home with family assistance planned for today. PT Recommendations Discharge Destination: Outpatient PT, Home with assistance Discharge Equipment: Rolling walker Plan Planned D/C home today PT Goals PT GOAL DETAILS Goal Established Date Time Frame Goal Status PT Goal 1: Patient will perform supine to/from sitting transfer with SBA from flat bed surface usign log roll technique. 01/05/25 2 weeks PT Goal 2: Patient will perform sit to/from standing transfer with RW and SBA. 01/05/25 2 weeks PT Goal 3: Patient will ambulate at least 400 feet continuously over level surfaces with RW and SBA. 01/05/25 2 weeks PT Goal 4: Patient will ascend/descend 4 steps with unilateral hand rail and SBA in order to accesshome environment safely. 01/05/25 2 weeks PT Goal 5: Patient will be compliant with HEP with set-up as needed from staff/family. 01/05/25 2 weeks Written by uLis Elizalde on 01/16/25 at 1:33 PM. 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 Orly White is a 44 y.o. year old male with a PMH of decompensated alcohol related cirrhosis s/p OLT, ascites, HE, SBP, depression, anxiety, GERD, and HTN whopresents to [facility] on 01/02 for liver transplant. Hospital Course: Patient underwent Liver transplant on 01/03. he tolerated the procedure well without complications. Patient was transferred to the ICU post operatively. He was weaned off the ventilator and subsequently transferred to the PCU. Liver had Good Graft Function recovery. Patient tolerated diet advancement and surgical drains were removed. Secondary to liver function panel, pt got liver u/s that came back unremarkable; MRCP was ordered and showed stricture. ERCP was done and showed no stricture, stent was placed. IR biopsy with acute cholangitis,. Pt was put on steroid taper, and LFTs are continuing to downtrend. Got 5 Zosyn for tx. And is on ursodiol. Pt has done well; he is stable for DC in good condition to acute rehab. He will continue abx for 1 week in outpatient setting. Items for Outpatient Follow Up: Immunosuppression/rejection Mycophenolate reduced to 750 mg PO BID in setting of cholangitis, optimize to 1g BID as appropriate. Prednisone taper: to start on prednisone 60 mg daily on 01/16 then decrease by 10 mg every 5 days. Cholangitis: Zosyn initiated on 01/11, transitioned to levofloxacin 750 q24 on 01/15. Plan for 7 days after ERCP, to end 01/18. Ursodiol 600 mg PO BID (increased from 300 BID on 01/16) Hypertension: BP in the 140s/80s prior to discharge Pre-transplant coreg 6.25 mg PO BID Post-transplant: coreg 25 mg PO BID, amlodipine 10 mg daily Vitamin D deficiency: preop 25HD 16.2, ergocalciferol 50,000 units weekly started 01/09. Recommend repeat 25HD in 8 weeks. Medication access: patient has coverage through [employer] and Medicaid, prefers to use Medicaid to get allmeds through ; expressed desire to utilize [facility] post-operatively. Biliary reconstruction: [id number] Stent: Yes Induction Immunosuppression: Methylprednisolone 250 mg Patient was discharged OFF DIALYSIS. Target dry weight: NA Last Liver Function Tests: Lab Results Component Value Date ALT 55 (H) 01/16/2025 AST 23 01/16/2025 GGT 32 10/20/2024 ALKPHOS 93 01/16/2025 BILITOT 4.5 (H) 01/16/2025 Discharge condition: Good Discharge Disposition: Home or Self Care Discharge Diagnosis: Decompensation of cirrhosis of liver (CMS/HCC) Principal Problem: Decompensation of cirrhosis of liver (CMS/HCC) Active Problems: Tobacco use disorder, continuous Insomnia Anemia SBP (spontaneous bacterial peritonitis) Essential (primary) hypertension GERD (gastroesophageal reflux disease) Anxiety Thrombocytopenia (CMS/HCC) Hypotension Elevated INR Coagulopathy NINA (acute kidney injury) Abdominal distension Discharge Diet: Adult diet Diet texture: Regular; Electrolyte Restriction: Low Potassium; Other restriction(s): Solid Organ Transplant Adult Adult diet Diet texture: Regular; Electrolyte Restriction:Low Potassium; Other restriction(s): Solid Organ Transplant Adult Discharge Medications: Home Medications TAKE these medications mycophenolate 250 MG capsule Take 3 capsules by mouth 2 times a day. Z94.4. Txp Date: 01/03/25 Commonly known as: CellCept This medication is very important: It prevents organ rejection. predniSONE 10 MG tablet Take 6 tablets by mouth daily for 5 days, THEN 5 tablets daily for 5 days, THEN 4 tablets daily for5 days, THEN 3 tablets daily for 5 days, THEN 2 tablets daily for 5 days, THEN 1 tablet daily. Commonly known as: Deltasone Start taking on: January 16, 2025 This medication is very important: It prevents organ rejection. tacrolimus 1 MG capsule Take 2 capsules by mouth every morning AND 1 capsule every evening. Z94.4. transplant date 01/03/25. Commonly known as: Prograf This medication is very important: It prevents organ rejection. fluconazole 200 MG tablet Take 1 tablet by mouth daily for 17 days. Commonly known as: Diflucan This medication is very important: It prevents dangerous infection. Notes to patient: Prevent fungal infection Duration: 1 month levoFLOXacin 750 MG tablet Take 1 tablet by mouth daily for 2 doses. Commonly known as: Levaquin This medication is very important: It prevents dangerous infection. sulfamethoxazole-trimethoprim 400-80 MG tablet Take 1 tablet by mouth daily. Commonly known as: Bactrim This medication is very important: It prevents dangerous infection. Notes to patient: Prevent bacterial infection Duration: 6 months valGANciclovir 450 MG tablet Take 1 tablet by mouth daily. Do not crush or chew. Commonly known as: Valcyte This medication is very important: It prevents dangerous infection. Notes to patient: Prevent viral infection Duration: 3 months acetaminophen 500 MG tablet Take 1 tablet by mouth every 6 hours as needed for headaches or pain. Max 2000 mg per 24 hours. Commonly known as: Tylenol amLODIPine 10 MG tablet Take 1 tablet by mouth daily. Commonly known as: Norvasc Notes to patient: Lower blood pressure aspirin 81 MG EC tablet Take 1 tablet by mouth daily. buPROPion SR 150 MG 12 hr tablet Take 1 tablet by mouth daily for 3 days, THEN 1 tablet 2 times a day. Do not crush, chew, or split. Commonly known as: Wellbutrin SR Start taking on: November 21, 2024 carvedilol 25 MG tablet Take 1 tablet by mouth 2 times a day. Commonly known as: Coreg Notes to patient: Lower blood pressure ergocalciferol 1.25 MG (02938 UT) capsule Take 1 capsule by mouth 1 time per week. Fridays Commonly known as: Vitamin D-2 Notes to patient: Vitamin D supplement escitalopram 10 MG tablet Take 1 tablet by mouth daily. Commonly known as: Lexapro ferrous sulfate 324 MG tablet delayed-release Take 1 tablet by mouth daily with breakfast. Do not crush, chew, or split. Mens Multi Health Formula tablet Take 1 tablet by mouth daily. methocarbamol 500 MG tablet Take 1 tablet by mouth 3 times a day as needed for muscle spasms. Commonly known as: Robaxin nutrional drink glucose control liquid liquid Drink 1 supplement up to 3 times a day or As Directed as a nutritional supplement. Flavor preference: per patient. Please dispense up to 4 cases at a time per patient request pantoprazole 40 MG EC tablet Take 1 tablet by mouth daily. Do not crush, chew, or split. Commonly known as: Protonix Pill Box 7 Day misc Pill box senna-docusate sodium 8.6-50 MG tablet Take 1 tablet by mouth 2 times a day as needed for constipation. Commonly known as: Senokot-S traZODone 50 MG tablet Take 1 tablet by mouth nightly. Commonly known as: Desyrel ursodiol 300 MG capsule Take 2 capsules by mouth 2 times a day. Commonly known as: Actigall Immunosuppression: IR tacrolimus (Prograf) 1mg BID goal: 6-8 Mycophenlolate Mofetil 750mg twice daily Prednisone 60 mg daily followed by taper FPC antibiotics: Yes, Levaquin x1 week for cholangitis 3. CMV status: D+/R+ 4. Special Instructions: None Follow-up Future Appointments Date Time Provider Department Center 03/06/2025 To Be Determined [facility] ENDO 2 ENDOG[facility]S [facility] Cosigned by Satnam Beckford MD at 01/20/2025 9:34 AM EST Associated attestation - Satnam Beckford MD - 01/20/2025 9:34 AM EST I saw and evaluated the patient with the resident/fellow. I discussed the case with the resident/fellow and agree with the findings and plan as documented. Patient to be discharged home. and I spent >30 minutes of patient care and instruction time in preparation for this discharge. Immunosuppression medication requires regular monitoring to ensure that the patient is not experiencing any adverse effects as a result for the therapeutic agent. I have therefore, managed the patient's immunosuppression medication listed in this note, addressed any toxic side effects, and adjustedlevels appropriately. Satnam Beckford MD * Care Plan - Allison Rosenbaum RN - 01/15/2025 8:36 PM EST Problem: Adult Inpatient Plan of Care Goal: Plan of Care Review Outcome: Ongoing, Progressing Flowsheets (Taken 01/15/20252034) Progress: improving Plan of Care Reviewed With: patient spouse Problem: Fall Injury Risk Goal: Absence of Fall and Fall-Related Injury Outcome: Ongoing, Progressing Intervention: Identify and Manage Contributors Flowsheets (Taken 01/15/20252036) Medication Review/Management: medications reviewed Self-Care Promotion: independence encouraged BADL personal objects within reach Intervention: Promote Injury-Free Environment Flowsheets (Taken 01/15/20252036) Safety Promotion/Fall Prevention: activity supervised fall prevention program maintained clutter-free environment maintained lighting adjusted nonskid shoes/slippers when out of bed room organization consistent safety round/check completed Problem: Skin Injury Risk Increased Goal: Skin Health and Integrity Outcome: Ongoing, Progressing Intervention: Optimize Skin Protection Flowsheets (Taken 01/15/20252034) Activity Management: activity adjusted per tolerance Pressure Reduction Techniques: frequent weight shift encouraged heels elevated off bed Pressure Reduction Devices: positioning supports utilized Head of Bed (HOB) Positioning: HOB elevated Problem: Infection Goal: Absence of Infection Signs and Symptoms Outcome: Ongoing, Progressing Intervention: Prevent or Manage Infection Flowsheets (Taken 01/15/20252034) Infection Management: aseptic technique maintained Fever Reduction/Comfort Measures: lightweight clothing lightweight bedding Isolation Precautions: precautions maintained protective * Nursing Note - Yari Iyer RN - 01/15/2025 1:42 PM EST Transplant nurse coordinator rounds completed. Immediate questions and concerns addressed. Encouraged to contact coordinator if needed. See most recent progress note for full POC. * Hospital Course - Félix Simmons APRN, PATTI - 01/15/2025 12:28 PM EST Orly White is a 45yo male with a PMH of decompensated alcohol related cirrhosis, ascites, HE, SBP, depression, anxiety, GERD, and HTN who presented to [facility] on 01/02 for orthotopic liver transplant which he underwent on 01/[address] Beckford. * Progress Notes - Saniya Bond, TITA - 01/15/2025 12:28 PM EST Physical Medicine & Rehabilitation Inpatient Consult Followup cc: Decompensation of cirrhosis of liver (CMS/HCC) Subjective: Patient seen and examined. Discussed functional status with patient, he said him and his walked up to the 10th floor to visit a friend, he wanted to do more walking yesterday but not available. He denies any concernswith toileting (although feels like he is not urinating enough), denies any concerns with dressing,stated he has practiced steps since he's been here. +light headed and dizziness after ambulation and when moving head side to side, stated when it happened he just slowed down. Current Medications: Continuous: Current Continuous Medications[1] Scheduled: Current Scheduled Medications[2] PRN: Current PRN Medications[3] Review of Information: Labs: Lab Results Component Value Date WBC 9.22 01/15/2025 WBC 5.47 01/14/2025 WBC 5.82 01/13/2025 HGB 8.2 (L) 01/15/2025 HGB 8.4 (L) 01/14/2025 HGB 8.5 (L) 01/13/2025 HCT 26.4 (L) 01/15/2025 MCV 100 (H) 01/15/2025 PLT 94 (L) 01/15/2025 PLT 76 (L) 01/14/2025 PLT 54 (L) 01/13/2025 Lab Results Component Value Date NA 140 01/15/2025 NA 137 01/14/2025 NA 138 01/13/2025 K 4.8 01/15/2025 K 4.6 01/14/2025 K 3.9 01/13/2025 CL 108 (H) 01/15/2025 CL 107 01/14/2025 CL 105 01/13/2025 BUN 39 (H) 01/15/2025 BUN 29 (H) 01/14/2025 BUN 26 (H) 01/13/2025 CREATININE 1.37 (H) 01/15/2025 CREATININE 1.50 (H) 01/14/2025 CREATININE 1.73 (H) 01/13/2025 CALCIUM 7.9 (L) 01/15/2025 CALCIUM 7.6 (L) 01/14/2025 CALCIUM 7.7 (L) 01/13/2025 GLUCOSE 164 (H) 01/15/2025 GLUCOSE 143 (H) 01/14/2025 GLUCOSE 88 01/13/2025 GLUCOSE 76 2025 GLUCOSE 81 01/11/2025 Lab Results Component Value Date ALT 51 (H) 01/15/2025 ALT 54 (H) 01/14/2025 ALT 60 (H) 01/13/2025 AST 21 01/15/2025 AST 24 01/14/2025 AST 28 01/13/2025 GGT 32 10/20/2024 ALKPHOS 95 01/15/2025 ALKPHOS 96 01/14/2025 ALKPHOS 103 01/13/2025 BILITOT 5.6 (H) 01/15/2025 BILITOT 8.9 (H) 01/14/2025 BILITOT 11.0 (H) 01/13/2025 Lab Results Component Value Date HGBA1C <4.0 10/21/2024 Physical Examination: Visit Vitals BP 136/73 (BP Location: Left arm) Pulse 61 Temp 36.5 ??C (97.7 ??F) (Oral) Ht 1.88 m (6' 2.02 ) Wt 95.8 kg (211 lb 3.2 oz) SpO2 99% BMI 27.10 kg/m?? Gen: NAD, reclining in chair Eyes: no scleral icterus, pupils round and symmetric Neck: supple, no tracheostomy ENT: nares patent, mucous membranes moist CV: regular rate, 1+ BLE edema Resp: nonlabored breathing, no wheezing GI: abd soft, NTTP : no knight Skin: warm, dry Heme/lymph/immune: scattered bruising Psychiatric: good judgement, good insight MSK: AROM throughout Neurological: awake and alert, participating in conversation, speech fluent Follow up appointments: Future Appointments Date Time Provider Department Center 01/16/2025 6:45 AM TRANSPLANT LAB [facility] 01/16/2025 8:00 AM Ybulaesvqn-Ntnpq-Xrhkocx-Paul [facility] 03/06/2025 To Be Determined GSH ENDO 2 ENDOGSHS GSH Mobility Orders Mobility Protocol: General - Mobility Guidelines Extremity Precautions: No Extremity Precautions Other mobility precautions: No other precautions required ASSESSMENT/PLAN: Orly White is a 44 y.o. male w/PMH of anxiety/depression, GERD, HTN, and decompensated alcohol cirrhosis c/b ascites, HE, and SBP who presented to on 01/02/2025 (LOS: 13d) for possible liver transplant. 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 If orthostatic vitals signs are okay, consider vestibular evaluation with therapy prior to discharge *have reached out to therapists regarding recommendations Thank you for allowing us to participate in the care of your patient. We will continue to follow. Please page [phone] with any questions, or resident on-call if after hours or on weekends. Saniya Bond APRN Physical Medicine & Rehabilitation [1] [2] amLODIPine, 10 mg, Oral, Daily aspirin, 81 mg, Oral, Daily bisacodyl, 10 mg, Rectal, Daily buPROPion SR, 150 mg, Oral, BID carvedilol, 25 mg, Oral, BID ergocalciferol, 50,000 Units, Oral, Weekly escitalopram, 10 mg, Oral, Daily fentaNYL, , , ferrous sulfate, 324 mg, Oral, Daily with breakfast fluconazole, 200 mg, Oral, Daily heparin (porcine), 5,000 Units, Subcutaneous, q8h insulin lispro, 0-5 Units, Subcutaneous, TID with meals insulin lispro, 0-3 Units, Subcutaneous, Twice at night levoFLOXacin, 750 mg, Oral, Daily methocarbamol, 500 mg, Oral, 4x daily midazolam, , , mycophenolate, 750 mg, Oral, BID pantoprazole, 40 mg, Oral, Daily polyethylene glycol, 17 g, Oral, Daily [START ON 01/16/2025] predniSONE, 60 mg, Oral, Daily Followed by [START ON 01/21/2025] predniSONE, 50 mg, Oral, Daily Followed by [START ON 01/26/2025] predniSONE, 40 mg, Oral, Daily Followed by [START ON 01/31/2025] predniSONE, 30 mg, Oral, Daily Followed by [START ON 02/05/2025] predniSONE, 20 mg, Oral, Daily Followed by [START ON 02/10/2025] predniSONE, 10 mg, Oral, Daily senna-docusate, 2 tablet, Oral, BID sodium chloride, 10 mL, Intravenous, q12h sodium chloride, 10 mL, Intravenous, q12h sodium chloride, 10 mL, Intravenous, q12h sodium chloride, 10 mL, Intravenous, q12h sodium chloride, 10 mL, Intravenous, q12h sulfamethoxazole-trimethoprim, 1 tablet, Oral, Daily tacrolimus, 1 mg, Oral, BID (0600 & 1800) traZODone, 50 mg, Oral, Nightly ursodiol, 300 mg, Oral, BID valGANciclovir, 450 mg, Oral, Daily [3] glucose, 15-30 grams of glucose, Sublingual, q15 min PRN OR dextrose 10 %, 125 mL, Intravenous, q15 min PRN OR dextrose 10 %, 250 mL, Intravenous, q15 min PRN OR glucagon (human recombinant), 1 mg, Intramuscular, q15 min PRN fentaNYL, , , hydrALAZINE, 10 mg, Intravenous, q1h PRN OR hydrALAZINE, 20 mg, Intravenous, q1h PRN hydrOXYzine HCl, 10 mg, Oral, q6h PRN labetalol, 10 mg, Intravenous, q1h PRN OR labetalol, 20 mg, Intravenous, q1h PRN midazolam, , , ondansetron, 4 mg, Intravenous, q6h PRN oxyCODONE, 5 mg, Oral, q4h PRN OR oxyCODONE, 10 mg, Oral, q4h PRN Insert peripheral IV, , , Once AND Saline lock IV, , , Once AND sodium chloride, 10 mL, Intravenous, q12h AND sodium chloride, 10 mL, Intravenous, PRN Insert peripheral IV, , , Once AND Saline lock IV, , , Once AND sodium chloride, 10 mL, Intravenous, q12h AND sodium chloride, 10 mL, Intravenous, PRN Insert peripheral IV, , , Once AND Saline lock IV, , , Once AND sodium chloride, 10 mL, Intravenous, q12h AND sodium chloride, 10 mL, Intravenous, PRN Insert peripheral IV, , , Once AND Saline lock IV, , , Once AND sodium chloride, 10 mL, Intravenous, q12h AND sodium chloride, 10 mL, Intravenous, PRN sodium chloride, 10 mL, Intravenous, q1h PRN sodium chloride, 20 mL, Intravenous, q1h PRN * Progress Notes - Gabriela Kinney RN - 01/15/2025 12:20 PM EST Case Management Adult Progress Note Orly White 45 y.o. male CSN: [id number] Admission: 01/02/2025 9:05 AM Primary Problem: Decompensation of cirrhosis of liver (CMS/HCC) Anticipated Discharge Date: 01/16 Has Discharge Plans Changed? No Medicare Second Notice: Housing Circumstances: Not Applicable Housing Circumstances Action Taken: Medically Ready for Discharge: Anticipated Tomorrow Additional Comments Pt with discharge planned for Sunday pt reports his will be available to provide transportation home at discharge. Tentative discharge plan is as follows: Future Appointments Encounter Information Provider Department Dept Phone Address 01/16/2025 6:45 AM TRANSPLANT LAB [facility] Arrive at: Transplant Center [phone] [facility] [id number] 01/16/2025 8:00 AM Estlwuwtmv-Srroc-Egyuuym-Paul [facility] Arrive at: Transplant Center [phone] [facility] [id number] 03/06/2025 TBD GSH ENDO 2 PAV S Endoscopy [phone] [facility] [id number] PT/OT recs: home with 24-hour assistance, outpatient PT/OT, rolling walker Pt reports he will have the assistance of his spouse at home PT to be provided with a script for outpatient PT/OT on day of discharge. Referral for rolling walker sent to [facility], walker delivered to bedside. Transportation: Pt states she will provide transportation home. CM will continue to follow pt plan of care and discharge needs. Gabriela Kinney RN * Progress Notes - Laura Muñiz, LAND LEASING INFORMATION CLERK - 01/15/2025 12:04 PM EST Transplant Social Work Discharge - Post-Transplant Identifying Information: Patient Name: Orly White Date of : 1980 Social Support System: The primary caregiver is , Patricia, who is committed and involved Local Housing Needs and Transportation: Patient and caregiver require temporary housing near the hospital post- discharge: No. Plan in placeto stay at: patient's home in [place]. Transportation to follow-up appointments will be provided by: . Financial Status: Reported household income estimated at below 300% [employer]. Monthly income about $750. Patient reports he has been awarded SSDI, however, final amounts and when first check will arrive is undetermined. Financial concerns noted regarding: transportation. [facility] has approved $100 gas card for transportation.Will be provided in clinic when card available. Patient/ report understanding and appreciative of assistance. Discharge Plan: Per PT/OT recommendations, patient is being discharged home with assistance Clinical Summary: Gabi FERREIRA is actively collaborating with the multidisciplinary transplant team to support ongoing psychosocial needs. Per team, Gabi FERREIRA is aware that the patient is recovering status post liver transplant on 01/03/25 and is is expected to be medically cleared for discharge in the next 24-48 hours. No psychosocial barriers to discharge were identified from a psychosocial perspective. Transplant psychoeducation completed with patient and caregiver post-transplant, including the following: [x]Post-transplant care and lifestyle adjustments [x] Caregiver roles and expectations discussed and reinforced [x] Reinforcement of effective coping mechanisms for managing psychosocial needs [x]Contact information provided for ongoing social work support Plan: Txp SW to maintain collaboration with the multidisciplinary team for post- transplant psychosocial needs Txp SW to continue to monitor psychosocial status related to post-transplant adjustment and provideinterventions as appropriate SW to provide gas card to patient once it arrives. Laura Muñiz LCSW, [facility] Transplant Physicist [facility] * Consults - Yari Reilly RD - 01/15/2025 10:33 AM EST Adult Nutrition Evaluation Note Orly White 45 y.o. male CSN: [id number] Room/Bed 213/213A Nutrition evaluation type: follow-up Reason for evaluation: Index Admission: Post-transplant discharge phase Hospital course: 44y/oM w/ hx decompensated EtOH related cirrhosis now s/p OLT 01/03. Increasing tbili; MRCP w/ biliary stricture. ERCP 01/12. Past medical/ surgical history: Past Medical History[1] Surgical History[2] Social history: Additional comments: Visited pt/ at bedside this AM. Pt reports appetite/intake continue to improve and that he is drinking Boost between meals. Boost Rx to [facility] for outpatient use. w/ questions from post-transplant nutrition education regarding fruit intake, food safety, etc; answered to satisfaction. Reiterated need to discontinue use of herbal alternative to chewing tobacco d/t potential for interaction with immunosuppressant; pt/ verbalized understanding. Vitals and Basic Assessment: BP: (!) 149/79 Temp: 36.3 ??C (97.3 ??F) Invasive Ventilator Initiated (ETT/Trach Only): Yes Oxygen Therapy: None (Room air) O2 Delivery Method: Nasal cannula Juanpablo Coma Scale Score: 15 Rosendo Scale Score: 20 Danyel/Cubbin Pressure Risk Score: 42 Most Recent BM Date: 01/13/25 (per patient report) GI Symptoms: None Edema: Generalized, Right lower extremity, Left lower extremity Allergies: Allergies[3] Medications: Current Scheduled Medications[4] Meds were reviewed: Yes Labs: Labs in last 18 hours BMP Na 140 Cl 108 (H) BUN 39 (H) Glu 164 (H) K 4.8 Co2 20 (L) Cr 1.37 (H) Ca 7.9 (L) iCa ?? Mg 2.1, Phos 3.5 Lactate ?? LFT AST 21 AlkPhos 95 T Prot 4.6 (L) ALK 51 (H) Bili 5.6 (H) Alb ?? D.Bili ?? Lab Results Component Value Date HGBA1C <4.0 10/21/2024 Anthropometrics: Height: 188 cm (6' 2.02 ) Weight: 95.8 kg (211 lb 3.2 oz) BMI (Calculated): 27.11 Weight Evaluation: Overweight (BMI 25-29.9) [place] Body Weight (kg): 86.4 Percent [place] Body Weight: 112 Adjusted Body Weight (kg): (-) Recent weights this admission: Date/Time Weight 01/15/25 0609 95.8 kg (211 lb 3.2 oz) 01/14/25 0532 95.5 kg (210 lb 8.6 oz) 01/13/25 0530 96 kg (211 lb 10.3 oz) 01/12/25 0513 96.4 kg (212 lb 8.4 oz) 01/11/25 0607 96.3 kg (212 lb 4.9 oz) 01/10/25 0529 97.2 kg (214 lb 4.6 oz) 01/09/25 0610 101 kg (223 lb 12.3 oz) Wt Readings from Last 10 Encounters: 01/15/25 95.8 kg (211 lb 3.2 oz) 12/30/24 108 kg (237 lb 3.4 oz) 12/18/24 108 kg (238 lb 1.6 oz) 12/17/24 110 kg (241 lb 10 oz) 12/03/24 98.8 kg (217 lb 13 oz) 11/25/24 99 kg (218 lb 4.1 oz) 11/11/24 100 kg (220 lb 7.4 oz) 11/04/24 110 kg (242 lb 4.6 oz) 11/04/24 109 kg (240 lb 4.8 oz) 10/20/24 117 kg (257 lb 15 oz) Estimated Needs: Kcal/ K-35 Kcal Provided: 6929-6697 Kcal Needs Based On: Current weight Gm Protein/ Kg : 1.5-2 Protein Provided: 145-193 Protein Needs Based On: Current weight Metabolic Cart Study Results: Current Nutrition Intake: Diet Supplements: Boost Glucose Control Diet Order: Adult Diet Diet Texture: Regular Electrolyte Restriction: Low phosphorus Other Restrictions: (Solid Organ Transplant) Percent Meals Eaten (%): 50% average x 6 meals Diet Experience and Nutrition History: Diet Education Provided: Yes (Post-transplant) Pertinent home medications: Pentecostal needs: Nutrition Focused Physical Exam: Physical exam performed on (date): 01/07/2025 Temples (muscles): Mild Clavicle (muscle): Mild Shoulder (muscle): None Interosseous (muscle): None Orbital (fat): None Triceps (fat): Mild Energy Intake: <75% EER x >1 month Assessment of Malnutrition: Malnutrition Identified: Yes Meets Criteria For: Moderate malnutrition In Context Of: Chronic illness/ injury Based On: Mild muscle mass loss, Moderately reduced energy intake Present on Admission: Yes Nutrition Problem: Inadequate oral intake related to current clinical condition as evidenced by NPO. Status of Nutrition Diagnosis: Resolved Increased nutrient needs kcal, protein related to cirrhosis s/p OLT as evidenced by increased metabolic demand associated w/ healing. Status of Nutrition Diagnosis: Ongoing Nutrition Interventions and Recommendations: - Continue Regular, Solid Organ Transplant diet -- Removing low phosphorus restriction now that WNL - Continue Boost Glucose Control TID to supplement Nutrition Monitoring and Goals: Pt will tolerate PO diet >=75% on average (not met, continue) Acuity Level: 2 Yari Reilly, FLASH, LD [1] Past Medical History: Diagnosis Date Anxiety Ascites Cirrhosis (CMS/HCC) Depression Enterocolitis due to Clostridium difficile, not specified as recurrent 11/04/2024 Esophageal varices GERD (gastroesophageal reflux disease) Hepatic encephalopathy (CMS/HCC) Hypertension Patient on waiting list for liver transplant 12/30/2024 SBP (spontaneous bacterial peritonitis) Tobacco use disorder [2] Past Surgical History: Procedure Laterality Date VASECTOMY [3] Allergies Allergen Reactions Amoxicillin Hives and Rash Childhood allergy [4] amLODIPine, 10 mg, Oral, Daily aspirin, 81 mg, Oral, Daily bisacodyl, 10 mg, Rectal, Daily buPROPion SR, 150 mg, Oral, BID carvedilol, 25 mg, Oral, BID ergocalciferol, 50,000 Units, Oral, Weekly escitalopram, 10 mg, Oral, Daily fentaNYL, , , ferrous sulfate, 324 mg, Oral, Daily with breakfast fluconazole, 200 mg, Oral, Daily heparin (porcine), 5,000 Units, Subcutaneous, q8h insulin lispro, 0-5 Units, Subcutaneous, TID with meals insulin lispro, 0-3 Units, Subcutaneous, Twice at night levoFLOXacin, 750 mg, Oral, Daily methocarbamol, 500 mg, Oral, 4x daily methylPREDNISolone sod suc (PF), 500 mg, Intravenous, q24h midazolam, , , mycophenolate, 750 mg, Oral, BID pantoprazole, 40 mg, Oral, Daily polyethylene glycol, 17 g, Oral, Daily [START ON 01/16/2025] predniSONE, 60 mg, Oral, Daily FOLLOWED BY [START ON 01/21/2025] predniSONE, 50 mg, Oral, Daily FOLLOWED BY [START ON 01/26/2025] predniSONE, 40 mg, Oral, Daily FOLLOWED BY [START ON 01/31/2025] predniSONE, 30 mg, Oral, Daily FOLLOWED BY [START ON 02/05/2025] predniSONE, 20 mg, Oral, Daily FOLLOWED BY [START ON 02/10/2025] predniSONE, 10 mg, Oral, Daily senna-docusate, 2 tablet, Oral, BID Insert peripheral IV, , , Once AND Saline lock IV, , , Once AND sodium chloride, 10 mL, Intravenous, q12h AND sodium chloride, 10 mL, Intravenous, PRN Insert peripheral IV, , , Once AND Saline lock IV, , , Once AND sodium chloride, 10 mL, Intravenous, q12h AND sodium chloride, 10 mL, Intravenous, PRN Insert peripheral IV, , , Once AND Saline lock IV, , , Once AND sodium chloride, 10 mL, Intravenous, q12h AND sodium chloride, 10 mL, Intravenous, PRN Insert peripheral IV, , , Once AND Saline lock IV, , , Once AND sodium chloride, 10 mL, Intravenous, q12h AND sodium chloride, 10 mL, Intravenous, PRN sodium chloride, 10 mL, Intravenous, q12h sulfamethoxazole-trimethoprim, 1 tablet, Oral, Daily tacrolimus, 1 mg, Oral, BID (0600 & 1800) traZODone, 50 mg, Oral, Nightly ursodiol, 300 mg, Oral, BID valGANciclovir, 450 mg, Oral, Daily * Progress Notes - Velasquez Campos MD - 01/15/2025 8:35 AM EST Abdominal Transplant Surgery Progress Note Events of past 24 hours: Orly White is a 44yo male with a PMH of decompensated alcohol related cirrhosis, ascites, HE, SBP, depression, anxiety, GERD, and HTN who presents to [facility] on 01/02 for possible liver transplant. 01/03: OLT Interval: NAEON. MRCP with evidence of biliary stricture. Liver U/S ok. VSS. Hgb and WBC S. Cr 1.37. LFT stable, but Tbili 5.6 (8.9). Edited by: Velasquez Campos MD at 01/15/2025 0835 Review of Systems: 14-point ROS negative except as above in HPI. Last Recorded Vitals Blood pressure (!) 149/79, pulse 74, temperature 36.3 ??C (97.3 ??F), temperature source Oral, resp. rate 16, height 1.88 m (6' 2.02 ), weight 95.8 kg (211 lb 3.2 oz), SpO2 98%. Output by Drain (mL) 01/13/25 07 - 01/13/25 1859 01/13/25 1900 - 01/14/25 0659 01/14/25 07 - 01/14/25 1859 01/14/25 1900 - 01/15/25 0659 01/15/25 0700 - 01/15/25 0835 Patient has no LDAs of requested type attached. Physical Exam GENERAL: well appearing EYES: PERRL + scleral icterus HENT: No lesions in anterior nares; no lesions in oropharynx, head atraumatic and normocephalic NECK: Supple. No thyromegaly or adenopathy. No JVD noted. The trachea appears midline. RESP: Symmetric expansion; no retractions. CARD: RRR Extremities: +LE edema, no cyanosis or clubbing. Pulses palpable x4. GI: No organomegaly or masses. Nontender nondistended. Soft. Incision cdi SKIN: No rash, sores, lesions or subcutaneous nodules. NEURO: GCS 15 Results: Labs in last 18 hours Labs are independently reviewed daily. CBC WBC 9.22 Hb 8.2 (L) Plt 94 (L) Hct 26.4 (L) ANC ?? INR 1.2 (H), PTT ??, Anti-Xa ?? BMP Na 140 Cl 108 (H) BUN 39 (H) Glu 164 (H) K 4.8 Co2 20 (L) Cr 1.37 (H) Ca 7.9 (L) iCa ?? Mg 2.1, Phos 3.5 Lactate ?? LFT AST 21 AlkPhos 95 T Prot 4.6 (L) ALK 51 (H) Bili 5.6 (H) Alb ?? D.Bili ?? Coags: INR Date Value Ref Range Status 01/15/2025 1.2 (H) 0.9 - 1.1 Final Prothrombin Time Date Value Ref Range Status 01/15/2025 15.1 (H) 12.0 - 14.3 sec Final aPTT Date Value Ref Range Status 01/03/2025 48 (H) 25 - 35 sec Final Fibrinogen, Quantitative (Clottable) Date Value Ref Range Status 01/03/2025 134 (L) 208 - 459 mg/dL Final ABG: pH, Mixed Venous Date Value Ref Range Status 01/03/2025 7.31 (L) 7.32 - 7.43 Final pCO2, Mixed Venous Date Value Ref Range Status 01/03/2025 42 40 - 55 mmHg Final pO2, Mixed Venous Date Value Ref Range Status 01/03/2025 53 (H) 25 - 40 mmHg Final Base Excess, Mixed Venous Date Value Ref Range Status 01/03/2025 -5.1 (L) -2.0 - 3.0 mmol/L Final Bicarbonate, Calculated, Arterial Date Value Ref Range Status 01/03/2025 21 (L) 22 - 26 mmol/L Final Body Temperature Date Value Ref Range Status 01/03/2025 37.0 Celsius Final VBG: No results found for: BDVEN , BEVEN , VSQ5YCQ , HPX8CBC , PHVEN , PO2VEN , M6DUXOAI , OLI8GEGUNIX , PHVENTEMP Lactate: Lactate, Arterial, Whole Blood Date Value Ref Range Status 01/03/2025 1.7 (H) 0.5 - 1.6 mmol/L Final Medications Current Scheduled Medications[1] Current Continuous Medications[2] Current PRN Medications[3] Imaging (past 24h): I personally visualized and interpreted all of the imaging studies below and I agree with formal interpretation. Assessment and Plan Medical Problems Problem List * (Principal) Decompensation of cirrhosis of liver (CMS/HCC) Tobacco use disorder, continuous Insomnia Anemia SBP (spontaneous bacterial peritonitis) Essential (primary) hypertension GERD (gastroesophageal reflux disease) Anxiety Thrombocytopenia (CMS/HCC) Hypotension Elevated INR Coagulopathy NINA (acute kidney injury) Abdominal distension [ ] f/u CMV, BF, HSV PCR [ ] Zosyn until 01/16 Orly White is a 44yo male with a PMH of decompensated alcohol related cirrhosis, ascites, HE, SBP, depression, anxiety, GERD, and HTN who presents to [facility] on 01/02 for possible liver transplant. Now s/p liver transplant on 01/03. Extubated post-op 01/03 to ND, now on RA. HDS off pressors. Abdominal exam is stable. Tbili has been increasing significantly, US Liver unremarkable with patent flow, MRCP consistent with biliary stricture. NINA improving. We will continue ursodiol and zosyn. ERCP, no stricture, stent placed. IR biopsy with acute cholangitis, ACR moderate, 500 solumedrol again 01/15, start steroid taper tomorrow. Neuro: GCS 15. MMPC - home escitalopram, wellbutrin, trazodone CV: HDS - on home coreg 25mg BID Pulm: RA, pulm hygiene GI: Reg Gu: LFTs, Tbili now downtrending WBC WNL. Stared zosyn empirically 01/12- 01/16 - ursodiol 300 BID - PPI BID : Cr stable. Will monitor, considering bolus. ID: AF, WBC WNL - fluconazole - zosyn Heme: Hgb S, plts 94 (74) - Sqh resumed Immunosuppression: cellcept 500 mg BID, pred 5, fk 02/12 GI reg: PPI, miralax, doc-senna LTD: PIV x2, DVT ppx: SCDs, SQH BID held, asa held Consults: PM&R PT/OT: 01/08: acute rehab Dispo: acute rehab Edited by: Velasquez Campos MD at 01/15/2025 0835 Velasquez Campos MD PGY-1 General Surgery 01/15/2025 [1] amLODIPine, 10 mg, Oral, Daily aspirin, 81 mg, Oral, Daily bisacodyl, 10 mg, Rectal, Daily buPROPion SR, 150 mg, Oral, BID carvedilol, 25 mg, Oral, BID ergocalciferol, 50,000 Units, Oral, Weekly escitalopram, 10 mg, Oral, Daily fentaNYL, , , ferrous sulfate, 324 mg, Oral, Daily with breakfast fluconazole, 200 mg, Oral, Daily heparin (porcine), 5,000 Units, Subcutaneous, q8h insulin lispro, 0-5 Units, Subcutaneous, TID with meals insulin lispro, 0-3 Units, Subcutaneous, Twice at night methocarbamol, 500 mg, Oral, 4x daily methylPREDNISolone sod suc (PF), 500 mg, Intravenous, q24h midazolam, , , mycophenolate, 500 mg, Oral, BID pantoprazole, 40 mg, Oral, Daily piperacillin-tazobactam, 4.5 g, Intravenous, q6h polyethylene glycol, 17 g, Oral, Daily [START ON 01/16/2025] predniSONE, 60 mg, Oral, Daily Followed by [START ON 01/21/2025] predniSONE, 50 mg, Oral, Daily Followed by [START ON 01/26/2025] predniSONE, 40 mg, Oral, Daily Followed by [START ON 01/31/2025] predniSONE, 30 mg, Oral, Daily Followed by [START ON 02/05/2025] predniSONE, 20 mg, Oral, Daily Followed by [START ON 02/10/2025] predniSONE, 10 mg, Oral, Daily senna-docusate, 2 tablet, Oral, BID sodium chloride, 10 mL, Intravenous, q12h sodium chloride, 10 mL, Intravenous, q12h sodium chloride, 10 mL, Intravenous, q12h sodium chloride, 10 mL, Intravenous, q12h sodium chloride, 10 mL, Intravenous, q12h sulfamethoxazole-trimethoprim, 1 tablet, Oral, Daily tacrolimus, 1 mg, Oral, BID (0600 & 1800) traZODone, 50 mg, Oral, Nightly ursodiol, 300 mg, Oral, BID valGANciclovir, 450 mg, Oral, Daily [2] [3] PRN medications: glucose OR dextrose 10 % OR dextrose 10 % OR glucagon (human recombinant), fentaNYL, hydrALAZINE OR hydrALAZINE, hydrOXYzine HCl, labetalol OR labetalol, midazolam, ondansetron, oxyCODONE OR oxyCODONE, sodium chloride, Insert peripheral IV AND [place] IV AND sodium chloride AND sodium chloride, Insert peripheral IV AND Saline lock IV AND sodium chloride AND sodium chloride, Insert peripheral IV AND Saline lock IV AND sodium chloride AND sodium chloride, Insert peripheral IV AND Saline lock IV AND sodium chloride AND sodium chloride, sodium chloride Cosigned by Satnam Beckford MD at 01/15/2025 10:32 AM EST Associated attestation - Satnam Beckford MD - 01/15/2025 10:32 AM EST I saw and evaluated the patient with the resident/fellow. I discussed the case with the resident/fellow and agree with the findings and plan as documented. S/p OLT on 01/03. Complicated by acute blood loss anemia requiring tx post op. Slow uptrend in bili. 24hrs: no events overnight. Afebrile,vss On ra Liver biopsy shows cholangitis with moderate acr - continue solumedrol 500mg IV x 3 doses- to finish today Switch to levaquin for total of 1 week for cholangitis Reg diet ERCP -unremarkable stent placed Bilirubin improving H/h stable No leukocytosis ASA/SQH FK/Pred/mmf increase to 750mg BID Immunosuppression medication requires regular monitoring to ensure that the patient is not experiencing any adverse effects as a result for the therapeutic agent. I have therefore, managed the patient's immunosuppression medication listed in this note, addressed any toxic side effects, and adjustedlevels appropriately. Possible discharge home today. Satnam Beckford MD * Care Plan - Mirtha Miranda RN - 01/15/2025 6:50 AM EST Problem: Adult Inpatient Plan of Care Goal: Plan of Care Review Outcome: Ongoing, Progressing Flowsheets (Taken 01/14/20251744 by Bree Mcfarland RN) Progress: improving Outcome Evaluation: pt verbalized understanding of current plan of care Plan of Care Reviewed With: patient spouse Goal: Patient-Specific Goal (Individualized) Outcome: Ongoing, Progressing Flowsheets (Taken 01/14/20251999) Patient/Family-Specific Goals (Include Timeframe): patient will remain free from falls this shift Individualized Care Needs: safety Anxieties, Fears or Concerns: none stated Note: Patient will remain free from falls this shift by wearing non-slip socks while out of bed andambulating Goal: Absence of Hospital-Acquired Illness or Injury Outcome: Ongoing, Progressing Goal: Optimal Comfort and Wellbeing Outcome: Ongoing, Progressing Problem: Fall Injury Risk Goal: Absence of Fall and Fall-Related Injury Outcome: Ongoing, Progressing Problem: Anxiety Signs/Symptoms Goal: Optimized Energy Level (Anxiety Signs/Symptoms) Outcome: Ongoing, Progressing Goal: Optimized Cognitive Function (Anxiety Signs/Symptoms) Outcome: Ongoing, Progressing Goal: Improved Mood Symptoms (Anxiety Signs/Symptoms) Outcome: Ongoing, Progressing Goal: Improved Sleep (Anxiety Signs/Symptoms) Outcome: Ongoing, Progressing Goal: Enhanced Social, Occupational or Functional Skills (Anxiety Signs/Symptoms) Outcome: Ongoing, Progressing Goal: Improved Somatic Symptoms (Anxiety Signs/Symptoms) Outcome: Ongoing, Progressing Problem: Functional Deficit Goal: Improved Balance and Postural Control Outcome: Ongoing, Progressing Goal: Optimal Cognitive Function Outcome: Ongoing, Progressing Goal: Optimal Coordination Outcome: Ongoing, Progressing Goal: Improved Muscle Strength Outcome: Ongoing, Progressing Goal: Improved Muscle Tone Outcome: Ongoing, Progressing Goal: Optimal Range of Motion Outcome: Ongoing, Progressing Goal: Compensation for Sensory Deficit Outcome: Ongoing, Progressing Problem: Skin Injury Risk Increased Goal: Skin Health and Integrity Outcome: Ongoing, Progressing Problem: Infection Goal: Absence of Infection Signs and Symptoms Outcome: Ongoing, Progressing * Care Plan - Bree Mcfarland RN - 01/14/2025 7:55 PM EST Problem: Adult Inpatient Plan of Care Goal: Plan of Care Review Outcome: Ongoing, Progressing Flowsheets (Taken 01/14/2025 1745) Progress: improving Outcome Evaluation: pt verbalized understanding of current plan of care Plan of Care Reviewed With: patient spouse Goal: Patient-Specific Goal (Individualized) Outcome: Ongoing, Progressing Flowsheets (Taken 01/14/20251951) Patient/Family-Specific Goals (Include Timeframe): patient will remain free from falls throughout shift Individualized Care Needs: safety Anxieties, Fears or Concerns: none stated Goal: Absence of Hospital-Acquired Illness or Injury Outcome: Ongoing, Progressing Intervention: Identify and Manage Fall Risk Flowsheets (Taken 01/14/2025 0800) Safety Promotion/Fall Prevention: activity supervised assistive device/personal items within reach clutter-free environment maintained fall prevention program maintained lighting adjusted mobility aid in reach nonskid shoes/slippers when out of bed safety round/check completed room organization consistent toileting scheduled Intervention: Prevent Skin Injury Flowsheets (Taken 01/14/2025 1800) Body Position: weight shifting Intervention: Prevent Infection Flowsheets (Taken 01/14/20251951) Infection Prevention: equipment surfaces disinfected hand hygiene promoted rest/sleep promoted single patient room provided Goal: Optimal Comfort and Wellbeing Outcome: Ongoing, Progressing Problem: Fall Injury Risk Goal: Absence of Fall and Fall-Related Injury Outcome: Ongoing, Progressing Problem: Anxiety Signs/Symptoms Goal: Optimized Energy Level (Anxiety Signs/Symptoms) Outcome: Ongoing, Progressing Goal: Optimized Cognitive Function (Anxiety Signs/Symptoms) Outcome: Ongoing, Progressing Goal: Improved Mood Symptoms (Anxiety Signs/Symptoms) Outcome: Ongoing, Progressing Goal: Improved Sleep (Anxiety Signs/Symptoms) Outcome: Ongoing, Progressing Goal: Enhanced Social, Occupational or Functional Skills (Anxiety Signs/Symptoms) Outcome: Ongoing, Progressing Goal: Improved Somatic Symptoms (Anxiety Signs/Symptoms) Outcome: Ongoing, Progressing Problem: Functional Deficit Goal: Improved Balance and Postural Control Outcome: Ongoing, Progressing Goal: Optimal Cognitive Function Outcome: Ongoing, Progressing Goal: Optimal Coordination Outcome: Ongoing, Progressing Goal: Improved Muscle Strength Outcome: Ongoing, Progressing Goal: Improved Muscle Tone Outcome: Ongoing, Progressing Goal: Optimal Range of Motion Outcome: Ongoing, Progressing Goal: Compensation for Sensory Deficit Outcome: Ongoing, Progressing Problem: Skin Injury Risk Increased Goal: Skin Health and Integrity Outcome: Ongoing, Progressing Intervention: Optimize Skin Protection Flowsheets Taken 01/14/2025 195 Pressure Reduction Techniques: heels elevated off bed Pressure Reduction Devices: chair cushion utilized Taken 01/14/2025 1800 Activity Management: activity adjusted per tolerance Head of Bed (HOB) Positioning: HOB elevated Problem: Infection Goal: Absence of Infection Signs and Symptoms Outcome: Ongoing, Progressing * Progress Notes - Mariela Kwon RN - 01/14/2025 3:07 PM EST Referral to [facility] for RW for home use. PT/OT recs changed from acute rehab to HWA and OP PT. * Progress Notes - Velasquez Campos MD - 01/14/2025 10:16 AM EST Abdominal Transplant Surgery Progress Note Events of past 24 hours: Orly White is a 44yo male with a PMH of decompensated alcohol related cirrhosis, ascites, HE, SBP, depression, anxiety, GERD, and HTN who presents to [facility] on 01/02 for possible liver transplant. 01/03: OLT Interval: POD10. NAEON. MRCP with evidence of biliary stricture. Liver U/S ok. VSS. Hgb and WBC S. Cr mildy uptrending. LFT stable, but Tbili increase 11 from 10.4. Edited by: Estee Rosales at 01/13/2025 08 Review of Systems: 14-point ROS negative except as above in HPI. Last Recorded Vitals Blood pressure (!) 153/76, pulse 68, temperature 36.6 ??C (97.9 ??F), temperature source Oral, resp. rate 13, height 1.88 m (6' 2.02 ), weight 95.5 kg (210 lb 8.6 oz), SpO2 98%. Output by Drain (mL) 01/12/25 0700 - 01/12/25 1859 01/12/25 1900 - 01/13/25 0659 01/13/25 0700 - 01/13/25 1859 01/13/25 1900 - 01/14/25 0659 01/14/25 0700 - 01/14/25 1016 Patient has no LDAs of requested type attached. Physical Exam GENERAL: EYES: PERRL + scleral icterus HENT: No lesions in anterior nares; no lesions in oropharynx, head atraumatic and normocephalic NECK: Supple. No thyromegaly or adenopathy. No JVD noted. The trachea appears midline. RESP: Symmetric expansion; no retractions. CARD: RRR Extremities: +LE edema, no cyanosis or clubbing. GI: No organomegaly or masses. Nontender nondistended. Soft SKIN: No rash, sores, lesions or subcutaneous nodules. NEURO: GCS 15 Results: Labs in last 18 hours Labs are independently reviewed daily. CBC WBC 5.47 Hb 8.4 (L) Plt 76 (L) Hct 25.4 (L) ANC ?? INR 1.2 (H), PTT ??, Anti-Xa ?? BMP Na 137 Cl 107 BUN 29 (H) Glu 143 (H) K 4.6 Co2 20 (L) Cr 1.50 (H) Ca 7.6 (L) iCa ?? Mg 2.1, Phos 3.4 Lactate ?? LFT AST 24 AlkPhos 96 T Prot 4.7 (L) ALK 54 (H) Bili 8.9 (H) Alb ?? D.Bili ?? Coags: INR Date Value Ref Range Status 01/14/2025 1.2 (H) 0.9 - 1.1 Final Prothrombin Time Date Value Ref Range Status 01/14/2025 15.0 (H) 12.0 - 14.3 sec Final aPTT Date Value Ref Range Status 01/03/2025 48 (H) 25 - 35 sec Final Fibrinogen, Quantitative (Clottable) Date Value Ref Range Status 01/03/2025 134 (L) 208 - 459 mg/dL Final ABG: pH, Mixed Venous Date Value Ref Range Status 01/03/2025 7.31 (L) 7.32 - 7.43 Final pCO2, Mixed Venous Date Value Ref Range Status 01/03/2025 42 40 - 55 mmHg Final pO2, Mixed Venous Date Value Ref Range Status 01/03/2025 53 (H) 25 - 40 mmHg Final Base Excess, Mixed Venous Date Value Ref Range Status 01/03/2025 -5.1 (L) -2.0 - 3.0 mmol/L Final Bicarbonate, Calculated, Arterial Date Value Ref Range Status 01/03/2025 21 (L) 22 - 26 mmol/L Final Body Temperature Date Value Ref Range Status 01/03/2025 37.0 Celsius Final VBG: No results found for: BDVEN , BEVEN , MQX2HTT , RNT1FVG , PHVEN , PO2VEN , H3BJKHHK , KSH0SPGEWMM , PHVENTEMP Lactate: Lactate, Arterial, Whole Blood Date Value Ref Range Status 01/03/2025 1.7 (H) 0.5 - 1.6 mmol/L Final Medications Current Scheduled Medications[1] Current Continuous Medications[2] Current PRN Medications[3] Imaging (past 24h): I personally visualized and interpreted all of the imaging studies below and I agree with formal interpretation. Assessment and Plan Medical Problems Problem List * (Principal) Decompensation of cirrhosis of liver (CMS/HCC) Tobacco use disorder, continuous Insomnia Anemia SBP (spontaneous bacterial peritonitis) Essential (primary) hypertension GERD (gastroesophageal reflux disease) Anxiety Thrombocytopenia (CMS/HCC) Hypotension Elevated INR Coagulopathy NINA (acute kidney injury) Abdominal distension [ ] f/u CMV, BF, HSV PCR [ ] stitch in drain site [ ] Zosyn until 01/16 [ ] f/u liver bx results Orly White is a 44yo male with a PMH of decompensated alcohol related cirrhosis, ascites, HE, SBP, depression, anxiety, GERD, and HTN who presents to [facility] on 01/02 for possible liver transplant. Now s/p liver transplant on 01/03. Extubated post-op 01/03 to ND, now on RA. HDS off pressors. Abdominal exam is stable. Tbili has been increasing significantly, US Liver unremarkable with patent flow, MRCP consistent with biliary stricture. NINA improving. We will continue ursodiol and zosyn. ERCP, no stricture, stent placed. T bili 8.9 (11) after solumedrol. IR biopsy performed yesterday with [place] [facility], will follow up to determine next steps. Neuro: GCS 15. MMPC - home escitalopram, wellbutrin, trazodone CV: HDS - on home coreg 25mg BID Pulm: RA, pulm hygiene GI: Reg Gu: LFTs, Tbili now downtrending WBC WNL. Stared zosyn empirically 01/12- - ursodiol 300 BID - PPI BID : trending output; 15mg/kg and uptrending Cr. Will monitor, considering bolus. ID: AF, WBC WNL - fluconazole - zosyn Heme: Hgb S, plts 74 (54) - Sqh resumed Immunosuppression: cellcept 500 mg BID, pred 5, fk 02/12 GI reg: PPI, miralax, doc-senna LTD: PIV x2, DVT ppx: SCDs, SQH BID held, asa held Consults: PM&R PT/OT: 01/08: acute rehab Dispo: acute rehab Edited by: Velasquez Campos MD at 01/14/2025 1016 Velasquez Campos MD PGY-1 General Surgery 01/14/2025 [1] amLODIPine, 10 mg, Oral, Daily aspirin, 81 mg, Oral, Daily bisacodyl, 10 mg, Rectal, Daily buPROPion SR, 150 mg, Oral, BID carvedilol, 25 mg, Oral, BID ergocalciferol, 50,000 Units, Oral, Weekly escitalopram, 10 mg, Oral, Daily fentaNYL, , , ferrous sulfate, 324 mg, Oral, Daily with breakfast fluconazole, 200 mg, Oral, Daily heparin (porcine), 5,000 Units, Subcutaneous, BID insulin lispro, 0-5 Units, Subcutaneous, TID with meals insulin lispro, 0-3 Units, Subcutaneous, Twice at night methocarbamol, 500 mg, Oral, 4x daily methylPREDNISolone sod suc (PF), 500 mg, Intravenous, q24h midazolam, , , mycophenolate, 500 mg, Oral, BID pantoprazole, 40 mg, Oral, Daily piperacillin-tazobactam, 4.5 g, Intravenous, q6h polyethylene glycol, 17 g, Oral, Daily predniSONE, 5 mg, Oral, Daily with breakfast senna-docusate, 2 tablet, Oral, BID sodium chloride, 10 mL, Intravenous, q12h sodium chloride, 10 mL, Intravenous, q12h sodium chloride, 10 mL, Intravenous, q12h sodium chloride, 10 mL, Intravenous, q12h sodium chloride, 10 mL, Intravenous, q12h sulfamethoxazole-trimethoprim, 1 tablet, Oral, Daily tacrolimus, 1 mg, Oral, BID (0600 & 1800) traZODone, 50 mg, Oral, Nightly ursodiol, 300 mg, Oral, BID valGANciclovir, 450 mg, Oral, Daily [2] [3] PRN medications: glucose OR dextrose 10 % OR dextrose 10 % OR glucagon (human recombinant), fentaNYL, hydrALAZINE OR hydrALAZINE, hydrOXYzine HCl, labetalol OR labetalol, midazolam, ondansetron, oxyCODONE OR oxyCODONE, sodium chloride, Insert peripheral IV AND [place] IV AND sodium chloride AND sodium chloride, Insert peripheral IV AND Saline lock IV AND sodium chloride AND sodium chloride, Insert peripheral IV AND Saline lock IV AND sodium chloride AND sodium chloride, Insert peripheral IV AND Saline lock IV AND sodium chloride AND sodium chloride, sodium chloride Cosigned by Satnam Beckford MD at 01/14/2025 1:57 PM EST Associated attestation - Satnam Beckford MD - 01/14/2025 1:57 PM EST I saw and evaluated the patient with the resident/fellow. I discussed the case with the resident/fellow and agree with the findings and plan as documented. S/p OLT on 01/03. Complicated by acute blood loss anemia requiring tx post op. Slow uptrend in bili. 24hrs: s/p IR liver biopsy yesterday. Afebrile,vss On ra Liver biopsy shows cholangitis with moderate acr - continue solumedrol 500mg IV x 3 doses Continue zosyn for cholangitis Reg diet ERCP -unremarkable stent placed Bilirubin improved H/h stable No leukocytosis ASA/SQH FK/Pred/mmf 500mg BID Immunosuppression medication requires regular monitoring to ensure that the patient is not experiencing any adverse effects as a result for the therapeutic agent. I have therefore, managed the patient's immunosuppression medication listed in this note, addressed any toxic side effects, and adjustedlevels appropriately. Continue inpatient care Satnam Beckford MD * Care Plan - Bree Mcfarland RN - 01/13/2025 7:32 PM EST Problem: Adult Inpatient Plan of Care Goal: Plan of Care Review Outcome: Ongoing, Progressing Flowsheets (Taken 01/13/20251930) Progress: improving Plan of Care Reviewed With: patient Goal: Patient-Specific Goal (Individualized) Outcome: Ongoing, Progressing Goal: Absence of Hospital-Acquired Illness or Injury Outcome: Ongoing, Progressing Goal: Optimal Comfort and Wellbeing Outcome: Ongoing, Progressing Intervention: Monitor Pain and Promote Comfort Flowsheets (Taken 01/13/20251930) Pain Management Interventions: medication (see MAR) position adjusted rest Problem: Fall Injury Risk Goal: Absence of Fall and Fall-Related Injury Outcome: Ongoing, Progressing Problem: Anxiety Signs/Symptoms Goal: Optimized Energy Level (Anxiety Signs/Symptoms) Outcome: Ongoing, Progressing Goal: Optimized Cognitive Function (Anxiety Signs/Symptoms) Outcome: Ongoing, Progressing Goal: Improved Sleep (Anxiety Signs/Symptoms) Outcome: Ongoing, Progressing Problem: Skin Injury Risk Increased Goal: Skin Health and Integrity Outcome: Ongoing, Progressing * Post-Procedure Note - Ghislaine Borges APRN - 01/13/2025 4:19 PM EST Vascular and Interventional Radiology Brief Postprocedure Note Performed by; Ghislaine Borges APRN Pre-operative Diagnosis: Elevated LFTS, hyperbilirubinemia Post-operative Diagnosis: same Type of Anesthesia: Conscious Sedation Description of Findings: No focal liver lesions or biliary dilatation. Technical/Surgical Procedures Used: US guided random liver biopsy. Specimen Obtained: Yes, core biopsies Complications: None Estimated Blood Loss: none Procedure Events Event Event Time Sedation Start 01/13/2025 4:04 PM Sedation Stop 01/13/2025 4:18 PM See detailed result report with images in PACS. The patient tolerated the procedure well without incident or complication and is in stable condition. * Pre-Procedure Note - Ghislaine Borges APRN - 01/13/2025 3:18 PM EST Images from the original note were not included. INTERVENTIONAL RADIOLOGY SEDATION PRE-PROCEDURAL ASSESSMENT AND PLAN OF CARE Indication for procedure: The primary encounter diagnosis was Decompensation of cirrhosis of liver (CMS/HCC). Diagnoses of Elevated INR and Liver replaced by transplant were also pertinent to this visit. Planned Procedure: Random liver biopsy Relevant past medical history: None Previous problems with surgery, anesthesia or sedation: No Previous family history or problems with anesthesia or sedation: No History of tobacco use, alcohol use, or substance abuse: Tobacco Use History[1], Social History Substance and Sexual Activity Alcohol Use Not Currently Comment: Quit 2 months ago , Social History Substance and Sexual Activity Drug Use Never Height and Weight: Visit Vitals BP 129/70 Pulse 67 Temp 36.8 ??C (98.2 ??F) Ht 1.88 m (6' 2.02 ) Wt 96 kg (211 lb 10.3 oz) SpO2 97% BMI 27.16 kg/m?? Allergies to medication: Amoxicillin Current medications: Current Medications[2] Relevant Labs: Lab Results Component Value Date CREATININE 1.73 (H) 01/13/2025 EGFR 48.7 01/13/2025 INR 1.1 01/13/2025 Planned Sedation/Anesthesia: Minimal Airway assessment: normal Mallampati Score: I (soft palate, uvula, fauces, and tonsillar pillars visible) ASA: ASA 2 - Patient with mild systemic disease with no functional limitations Directed physical examination: Vitals: 01/13/25 1109 BP: 129/70 Pulse: 67 Resp: Temp: 36.8 ??C (98.2 ??F) SpO2: 97% GENERAL: Awake, alert, NAD HEENT: NCAT NECK: No appreciable JVD CARDIAC: Regular rate, regular rhythm, normal S1/S2, no m/r/g, 2+ radial pulses bilaterally PULM: CTAB without increased work of breathing ABD: Soft, NT, ND EXT: Warm and well perfused, no LE edema SKIN: No rashes or lesions NEURO: A&Ox4, moving all extremities spontaneously Benefits, risks and alternatives of procedure and planned sedation have been discussed with the patient and/or their employer relations representative. All questions answered and they agree to proceed. [1] Social History Tobacco Use Smoking Status Never Passive exposure: Current Smokeless Tobacco Current Types: Chew [2] Current Facility-Administered Medications Medication Dose Route Frequency Provider Last Rate Last Admin amLODIPine (Norvasc) tablet 5 mg 5 mg Oral Daily Camilla Soto APRN, DNP 5 mg at 01/13/25 0848 aspirin chewable tablet 81 mg 81 mg Oral Daily Velasquez Campos MD 81 mg at 01/13/25 0848 bisacodyl (Dulcolax) suppository 10 mg 10 mg Rectal Daily Tg Morales APRN 10 mg at 01/09/25 0844 buPROPion SR (Wellbutrin SR) 12 hr tablet 150 mg 150 mg Oral BID Félix Simmons APRN, DNP 150 mg at 01/13/25 0848 carvedilol (Coreg) tablet 25 mg 25 mg Oral BID Camilla Soto APRN, DNP 25 mg at 01/13/25 0848 glucose (Glutose) 40 % oral gel 15-30 grams of glucose 15-30 grams of glucose Sublingual q15 min PRN Velasquez Campos MD Or dextrose 10 % (D10W) bolus 125 mL 125 mL Intravenous q15 min PRN Velasquez Campos MD 500 mL/hr at 01/12/25 1319 125 mL at 01/12/25 1319 Or dextrose 10 % (D10W) bolus 250 mL 250 mL Intravenous q15 min PRN Velasquez Campos MD Or glucagon (human recombinant) injection 1 mg 1 mg Intramuscular q15 min PRN Velasquez Campos MD ergocalciferol (Vitamin D-2) capsule 50,000 Units 50,000 Units Oral Weekly Maciel Olson MD 50,000Units at 01/09/25 0844 escitalopram (Lexapro) tablet 10 mg 10 mg Oral Daily Félix Simmons APRN, DNP 10 mg at 01/13/25 0848 ferrous sulfate EC tablet 324 mg 324 mg Oral Daily with breakfast Félix Simmons APRN, DNP324 mg at 01/13/25 0848 fluconazole (Diflucan) tablet 200 mg 200 mg Oral Daily Maciel Olson MD 200 mg at 01/13/25 0848 [Held by provider] heparin (porcine) injection 5,000 Units 5,000 Units Subcutaneous BID Félix Simmons APRN, DNP 5,000 Units at 01/08/252055 hydrALAZINE (Apresoline) injection 10 mg 10 mg Intravenous q1h PRN Camilla Soto APRN, DNP 10 mg at 01/03/25 170 Or hydrALAZINE (Apresoline) injection 20 mg 20 mg Intravenous q1h PRN Camilla Soto APRN, DNP 20 mg at 01/06/25 07 hydrOXYzine HCl (Atarax) tablet 10 mg 10 mg Oral q6h PRN Yari Quesada MD 10 mg at 01/12/25 171 insulin lispro (Admelog) 100 units/mL injection - Correction - Standard Dose 0-5 Units SubcutaneousTID with meals Yari Quesada MD insulin lispro (Admelog) injection - Correction - Nighttime Dose 0-3 Units Subcutaneous Twice at night Yari Quesada MD labetalol (Normodyne,Trandate) injection 10 mg 10 mg Intravenous q1h PRN Camilla Soto APRN, DNP 10 mg at 01/04/252008 Or labetalol (Normodyne,Trandate) injection 20 mg 20 mg Intravenous q1h PRN Camilla Soto APRN, DNP 20 mg at 01/07/25 191 lidocaine 1% in sodium bicarbonate (buffered lidocaine)10 mL 10 mL Infiltration Once Divya Maguire APRN, DNP methocarbamol (Robaxin) tablet 500 mg 500 mg Oral 4x daily Cheryl Choi MD 500 mg at 01/13/25 1442 mycophenolate (Cellcept) capsule 500 mg 500 mg Oral BID Yari Quesada MD 500 mg at 01/13/25 0848 ondansetron (Zofran) injection 4 mg 4 mg Intravenous q6h PRN Negro Cr MD 4 mg at 01/04/25 1722 oxyCODONE (Roxicodone) immediate release tablet 5 mg 5 mg Oral q4h PRN Cheryl Choi MD 5 mgat 01/12/25 0852 Or oxyCODONE (Roxicodone) immediate release tablet 10 mg 10 mg Oral q4h PRN Cheryl Choi MD 10mg at 01/13/25 0549 pantoprazole (Protonix) EC tablet 40 mg 40 mg Oral Daily Camilla Soto APRN, DNP 40 mg at 01/13/25 0849 piperacillin-tazobactam (Zosyn) 4.5 g in sodium chloride 0.9% 100 mL IVPB (vial adapter required) 4.5 g Intravenous q6h Félix Simmons APRN, DNP 36.7 mL/hr at 01/13/25 1430 4.5 g at 430 polyethylene glycol (Miralax) packet 17 g 17 g Oral Daily Tg Morales APRN 17 g at 01/10/25 0927 predniSONE (Deltasone) tablet 5 mg 5 mg Oral Daily with breakfast Negro Cr MD 5 mg at 01/13/25 0849 senna-docusate (Lauren-Colace) 8.6-50 MG per tablet 2 tablet 2 tablet Oral BID Tg Morales APRN 2 tablet at 01/12/25 0851 sodium chloride 0.9 % flush 10 mL 10 mL Intravenous q12h Camilla Soto APRN, DNP 10 mL at 556 sodium chloride 0.9 % flush 10 mL 10 mL Intravenous q1h PRN Camilla Soto APRN, DNP sodium chloride 0.9 % flush 10 mL 10 mL Intravenous q12h Da De MD 10 mL at 01/13/25 1232 And sodium chloride 0.9 % flush 10 mL 10 mL Intravenous PRN Da De MD sodium chloride 0.9 % flush 10 mL 10 mL Intravenous q12h Da De MD 10 mL at 01/13/25 1232 And sodium chloride 0.9 % flush 10 mL 10 mL Intravenous PRN Da De MD sodium chloride 0.9 % flush 10 mL 10 mL Intravenous q12h Vanda Maguire APRN, DNP 10 mL at 01/13/25 1102 And sodium chloride 0.9 % flush 10 mL 10 mL Intravenous PRN Vanda Maguire APRN, DNP sodium chloride 0.9 % flush 10 mL 10 mL Intravenous q12h StigVanda villafuerte APRN, DNP And sodium chloride 0.9 % flush 10 mL 10 mL Intravenous PRN Vanda Maguire APRN, DNP sodium chloride 0.9 % flush 20 mL 20 mL Intravenous q1h PRN Camilla Soto APRN, PATTI sulfamethoxazole-trimethoprim (Bactrim) 400-80 MG per tablet 1 tablet 1 tablet Oral Daily Maciel Olson MD 1 tablet at 01/13/25 0848 tacrolimus (Prograf) capsule 2 mg 2 mg Oral Every Morning (0600) Cheryl Choi MD 2 mg at 01/13/25 0545 tacrolimus (Prograf) capsule 2 mg 2 mg Oral q PM (1800) Yari Quesada MD 2 mg at 01/12/25 1716 traZODone (Desyrel) tablet 50 mg 50 mg Oral Nightly Roger Moody 50 mg at 01/12/25 2017 ursodiol (Actigall) capsule 300 mg 300 mg Oral BID Yari Quesada MD 300 mg at 01/13/25 0848 valGANciclovir (Valcyte) tablet 450 mg 450 mg Oral Daily Maciel Olson MD 450 mg at 01/13/25 0848 * Progress Notes - Diego West - 01/13/2025 12:55 PM EST PHYSICAL THERAPY TREATMENT PATIENT DATA Patient Name Orly White Session Date 01/13/2025 Total Treatment Time 42 min PT Discharge Recommendations Home with 24 hour assistance PT Equipment Recommendations Rolling walker PRECAUTIONS Weight Bearing Precautions (if applicable) ROM Restrictions (if applicable) Medical Precautions Yes Medical Precautions: Post-Surgical precautions, Fall precautions Post-Surgical Precautions: Abdominal: no lifting >10# HOME LIVING/SET-UP Lives With Spouse ( Patricia and 29 year old son) Home Type House Home Equipment Rollator Home Layout One level, Stairs to enter without rails (with basement, but patient does nothave to travel to basement level) 4 Bathroom Layout Tub/Shower combo Standard Accessible via walker Additional Comments Patient had been to [facility] in September, and was still receiving outpatient PT. PRIOR LEVEL OF FUNCTION Receives help from Spouse Level of Mobility Ambulatory- household only Mobility [place] Independent gait without device History of Falls Yes (mechanical falls- balancing during dressing and fall from bed level) ADL Performance ADL Performance: Needs assistance Bathing: Needs assist (had difficulty transferring out of tub) Upper Body Dressing: Independent Lower Body Dressing: Needs assist (with shoes and socks due to edema) Grooming: Independent Toileting: Independent Eating: Independent Home Management Skills: Independent PRESENTATION Oxygen Oxygen Therapy: None (Room air) Lines and Tubes Peripheral IV 01/02/25 Left;Posterior Wrist (Active) Peripheral IV 01/03/25 Right;Posterior Hand (Active) Pre-Session Head of bed elevated, Lines intact, Sitting in chair RN agreeable to session. Post-Session Sitting in chair, RN notified, Lines intact, Call light in reach Patient positioned for comfort with all needs in reach. at bedside. Bracing (if applicable) SUBJECTIVE PARTICIPANTS IN CARE Visitors Present Yes, Spouse Subjective Report Pt HAS been: * Ambulating hallway distances * Ambulating in-room distances * Transferring Bed <> Chair since last PT treatment. Dining Room Attendant Cafeteria (if applicable) Dining Room Attendant Cafeteria: Not Applicable OBJECTIVE & INTERVENTIONS PAIN Pt was without complaints of pain throughout the PT treatment. DELIRIUM SCREENING RASS: Alert and calm Feature 3: Altered Level of Consciousness: Negative Education Provided: PT introduced self and provided the rationale for WHY the PT treatment was being offered and what potential benefits the patient may gain by participating in the PT treatment. Pt was educated at appropriate times during the PT treatment regarding all Precautions. See PRECAUTIONS - Weight bearing Precautions (if applicable), ROM Restrictions (if applicable), and Medical Precautions for applicable precautions. Education was provided to ensure pt compliance and adherence toall precautions and applicable braces associated with pt's precautions. Please note: The physical therapy intervention is listed below this point. If cuing is documented under intervention details, pt was EDUCATED via PT providing cues (verbal, tactile, and other nonverbal cuing) to maximize pt's effort, improve patient's technique, and increase pt's independence performing those aspects of the PT treatment. If reviewing the note and cuing was not documented, pt did not require cues to complete the documented intervention. PT POC and discharge recommendations were reviewed with pt prior to PT's departure. Pt was educated regarding the benefits of mobility throughout the day and was encouraged to transfer bed <> chair 1-3x daily and ambulate hallway with industrial staff nurse as able, if able. THERAPEUTIC ACTIVITY Treatment Minutes 15 BED MOBILITY Level of [place] Physical/Non- physical Assist Adaptive Equipment Utilized Rolling/ Turning Scooting/ Bridging Supine to Sit Sit to Supine Interventions pt recieved and left sitting upright in bedside chair TRANSFERS Level of [place] Physical/Non- physical Assist Adaptive Equipment Utilized Sit to Stand (SBA with RW, CGA without AD) Verbal Cues, Nonverbal cues (demo/gestures), 1 person + 1 person to manage equipment (trials with and without RW) Stand to sit (SBA with RW, CGA without AD) Nonverbal cues (demo/gestures), Verbal Cues, 1 person + 1 person to manage equipment (trials with and without RW) Bed to Chair Toilet Transfer Shower Transfer Interventions BALANCE Postural Appearance Posture: Rounded shoulders, Forward head Level of [place] Balance Support Interventions Static Sit Supervision Feet supported, Right upper extremity support, Left upper extremity support Dynamic Sit Standby assisst Feet supported (varying UE support) Dynamic Sitting- Balance: Lateral weight shifts, Anterior/Posterior weight shifts Dynamic Sitting - Interventions: scooting in bedside chair Static Stand Contact guard Right upper extremity support, Left upper extremity support Dynamic Stand Contact guard GAIT TRAINING Treatment Minutes 19 Interventions PT presence was necessary for: * managing lines * progressing patient ambulation distances * decreasing patient's risk of falling while progressing pt's distances * assessing patient readiness for decreasing support requirements from assistive devices PT educated pt on avoiding excessive anterior displacement of AD relative to pt's body in order to ensure safety and decrease risk for falls. Pt with demonstration of improved management of RW duringsession requiring decreased cueing compared to previous session. -PT provide pt with verbal cueing of increasing hip/trunk extension during ambulation in order to achieve erect posture. The presentation of increased trunk/hip flexion correlates to passive/active insufficiency of hamstring musculature resulting in decreased step length and decreased terminal stanc e/early toe off during pre swing. Additionally, improving posture during ambulation improves pt's awareness of surrounding and decreases the presentation of downward gaze during ambulation. -PT sized RW appropriately to patient's height, PT provided consistent cueing for widening NELA. - Without AD, PT provided verbal commands for head turns in the four cardinal planes in order to provided further challenges to the patient's balance systems during ambulation. Pt demonstrate decreased anastasiya/gait speed, increased truncal sway and 1x LOB requiring Vicente from therapist to regain balance. -PT guided pt through components of DGI without AD including stepping over 5 inch obstacles, walking with 180 degree turn and stop, head turns, change in gait speed, stairs (see below), and figure eight walking around obstacles. Pt with 3x LOB's during DGI components which occurred during head turns to the right and stepping over an obstacle requiring Vicente to ensure safety. -pt demonstrated ability to fish bait picker 5 inch item from ground level via squat technique and performing right and left 360 degree turns with CGA. Level of [place] Distance Adaptive Equipment Utilized Gait Moderate verbal cues, Moderate tactile cues, Additional assist for line management (3x Vicente for mild LOB's during ambulation/DGI components without AD, Pt mainly required CGA for ambulation without AD. SBA for ambulation with RW.) 25' with RW + 210' without AD + 120' without AD (seated rest break between final 2 bouts) (Trials with RW and without AD) Gait Analysis/ Training Gait Analysis: Patient demonstrates narrow base of support, decreased stride length, decreased heel strike, slow anastasiya and forward flexed posture on RW. During ambulation without RW, Pt with increased presentation of truncal sway, increased lateral veering from midline which increased with performance of head turns. Stairs Contact guard (2 steps (limited by length of IV lines during session)) Rails : Single (Right side while ascending and left side while descending) No device Stair Training PT instructed pt on appropriate mechanics for ascending/descending stairs. Pt was educated on utilizing step to gait mechanics and unilateral handrail. Pt verbalized understanding and demonstrated appropriate mechanics during performance of stairs during session. Pt with mild presentation of imbalance requiring CGA to ensure safety. THERAPEUTIC EXERCISE Treatment Minutes 8 The following HEP was provided to the patient in order to progress LE strengthening and balance. The HEP was reviewed verbally and visual demonstrations was provided to ensure pt's understanding. Pt verbalized understanding of HEP provided. Access Code: [email or web address] URL: [email or web address] Date: 01/13/2025 Prepared by: Diego West Exercises - Standing Heel Raise with Support - 1-2 x daily - 7 x weekly - 3 sets - 10 reps - Standing Knee Flexion AROM - 1-2 x daily - 7 x weekly - 3 sets - 10 reps - Semi-Tandem Balance at Counter Top Eyes Open - 1-2 x daily - 7 x weekly - 3 sets - 10 reps - Sit to Stand with Counter Support -1-2 x daily - 7 x weekly - 3 sets - 10 reps - Standing March with Counter Support - 1-2 x daily - 7x weekly - 3 sets - 10 reps - Standing Hip Abduction with Counter Support - 1-2 x daily - 7 x weekly - 3 sets - 10 reps - Standing Hip Extension with Counter Support - 1-2 x daily - 7 x weekly - 3 sets - 10 reps Standardized Assessments [facility] 6-Clicks Mobility Assessment Difficulty patient has turning over in bed (including adjusting bedclothes, sheets, and blankets)?:A little Difficulty patient has sitting down on and standing up from a chair with arms (wheelchair, bedside commode, etc.)?: A little Difficulty patient has moving from lying on back to sitting on the side of the bed?: A little How much help does the patient need moving to and from a bed to a chair (including a wheelchair)?: A little How much help does the patient need to walk in hospital room?: A little How much help does the patient need climbing 3-5 steps with a railing?: A little [facility] 6-Clicks Mobility Assessment Total : 18 ASSESSMENT Pt is improving, as noted by: less assistance was required for pt to complete some or all transferswith use of AD, pt demonstrated improved sitting and/or standing balance, and pt ambulated increased walking distances, with less assistance while utilizing AD, and pt was able to progress towards gait training without AD during this PT treatment compared to last PT treatment. Gait training withoutAD was provided to enhance challenges to the pt's balance systems in order to promote return to baseline level of functioning. Pt has the following impairments: impaired activity tolerance, gross functional weakness, impaired posture, impaired balance, and impaired cognition, which is limiting the pt from performing independent functional mobility. Pt demonstrated improved functional mobility anddemonstrated ability to discharge home with 24/7 assistance barring any future medical complications that impact functional mobility. Additionally, pt would require RW at time of discharge in order to ensure safety with functional mobility due to balance deficits noted during the session. PT RECOMMENDATIONS Discharge Destination Home with 24 hour assistance Discharge Equipment Rolling walker PLAN Pt may continue to benefit from skilled PT for addressing patient's impairments and reducing patient's participation restrictions and activity limitations. PT GOALS PT GOAL DETAILS DATE ASSESSED STATUS PROGRESS PT Goal 1: Patient will perform supine to/from sitting transfer with SBA from flat bed surface usign log roll technique. PT Goal 1 Established Date: 01/05/25 PT Goal 1 Time Frame: 2 weeks PT Goal 2: Patient will perform sit to/from standing transfer with RW and SBA. PT Goal 2 Established Date: 01/05/25 PT Goal 2 Time Frame: 2 weeks PT Goal 3: Patient will ambulate at least 400 feet continuously over level surfaces with RW and SBA. PT Goal 3 Established Date: 01/05/25 PT Goal 3 Time Frame: 2 weeks PT Goal 4: Patient will ascend/descend 4 steps with unilateral hand rail and SBA in order to accesshome environment safely. PT Goal 4 Established Date: 01/05/25 PT Goal 4 Time Frame: 2 weeks PT Goal 5: Patient will be compliant with HEP with set-up as needed from staff/family. PT Goal 5 Established Date: 01/05/25 PT Goal 5 Time Frame: 2 weeks Written by Diego West on 01/13/25 at 1:16 PM. * Progress Notes - Saniya Bond, SEO ASSISTANT - 01/13/2025 12:10 PM EST Physical Medicine & Rehabilitation Inpatient Consult Followup cc: Decompensation of cirrhosis of liver (CMS/HCC) Subjective: Patient seen and examined. Family at bedside including Discussed ambulation as was increasingy difficult with edema and scrotal swelling which has improved. Discussed readiness for rehab Patient denies any specific concerns or complaints. able to assist at discharge, planning to go back to [facility] when ready Patient and family would like to go to [facility] when ready Therapy notes reviewed: Bed mobility: CGA to min assist Transfers: CGA Gait: rolling walker 50ft x 2 Current Medications: Continuous: Current Continuous Medications[1] Scheduled: Current Scheduled Medications[2] PRN: Current PRN Medications[3] Review of Information: Labs: Lab Results Component Value Date WBC 5.82 01/13/2025 WBC 5.23 2025 WBC 6.42 01/11/2025 HGB 8.5 (L) 01/13/2025 HGB 8.1 (L) 2025 HGB 8.3 (L) 01/11/2025 HCT 25.6 (L) 01/13/2025 MCV 98 01/13/2025 PLT 54 (L) 01/13/2025 PLT 45 (L) 2025 PLT 39 (L) 01/11/2025 Lab Results Component Value Date NA 138 01/13/2025 NA 133 (L) 2025 NA 137 01/11/2025 K 3.9 01/13/2025 K 3.6 2025 K 3.5 (L) 01/11/2025 CL 105 01/13/2025 CL 102 2025 CL 104 01/11/2025 BUN 26 (H) 01/13/2025 BUN 26 (H) 2025 BUN 31 (H) 01/11/2025 CREATININE 1.73 (H) 01/13/2025 CREATININE 1.26 (H) 2025 CREATININE 1.36 (H) 01/11/2025 CALCIUM 7.7 (L) 01/13/2025 CALCIUM 7.6 (L) 2025 CALCIUM 7.8 (L) 01/11/2025 GLUCOSE 88 01/13/2025 GLUCOSE 76 2025 GLUCOSE 81 01/11/2025 GLUCOSE 123 (H) 01/10/2025 GLUCOSE 79 01/10/2025 Lab Results Component Value Date ALT 60 (H) 01/13/2025 ALT 70 (H) 2025 ALT 88 (H) 01/11/2025 AST 28 01/13/2025 AST 22 2025 AST 31 01/11/2025 GGT 32 10/20/2024 ALKPHOS 103 01/13/2025 ALKPHOS 107 2025 ALKPHOS 121 (H) 01/11/2025 BILITOT 11.0 (H) 01/13/2025 BILITOT 10.4 (H) 2025 BILITOT 8.5 (H) 01/11/2025 Lab Results Component Value Date HGBA1C <4.0 10/21/2024 Physical Examination: Visit Vitals BP 129/70 Pulse 67 Temp 36.8 ??C (98.2 ??F) Ht 1.88 m (6' 2.02 ) Wt 96 kg (211 lb 10.3 oz) SpO2 97% BMI 27.16 kg/m?? Gen: NAD, reclining in recliner Eyes: +scleral icterus, pupils round and symmetric Neck: supple, no tracheostomy ENT: nares patent, mucous membranes moist CV: regular rate, 1+ BLE edema Resp: nonlabored breathing, no wheezing GI: abd soft, NTTP, rounded, incision on chest with manju Right drain with bloody drainage : no knight Skin: warm, dry Heme/lymph/immune: scattered bruising Psychiatric: good judgement, good insight MSK: - BUE strength 4/5 - BLE strength 4/5 AROM throughout Neurological: awake and alert, participating in conversation, speech fluent Follow up appointments: Future Appointments Date Time Provider Department Center 01/14/2025 1:00 PM IR US-2 [facility] 03/06/2025 To Be Determined [facility] ENDO 2 ENDOGSHS [facility] Mobility Orders Mobility Protocol: General - Mobility Guidelines Extremity Precautions: No Extremity Precautions Other mobility precautions: No other precautions required ASSESSMENT/PLAN: Orly White is a 44 y.o. male w/PMH of anxiety/depression, GERD, HTN, and decompensated alcohol cirrhosis c/b ascites, HE, and SBP who presented to on 01/02/2025 (LOS: 11d) for possible liver transplant. 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 We will continue to follow. Please page [phone] with any questions, or resident on-call if after hours or on weekends. Saniya Bond APRN Physical Medicine & Rehabilitation [1] [2] amLODIPine, 5 mg, Oral, Daily aspirin, 81 mg, Oral, Daily bisacodyl, 10 mg, Rectal, Daily buPROPion SR, 150 mg, Oral, BID carvedilol, 25 mg, Oral, BID ergocalciferol, 50,000 Units, Oral, Weekly escitalopram, 10 mg, Oral, Daily ferrous sulfate, 324 mg, Oral, Daily with breakfast fluconazole, 200 mg, Oral, Daily [Held by provider] heparin (porcine), 5,000 Units, Subcutaneous, BID insulin lispro, 0-5 Units, Subcutaneous, TID with meals insulin lispro, 0-3 Units, Subcutaneous, Twice at night methocarbamol, 500 mg, Oral, 4x daily mycophenolate, 500 mg, Oral, BID pantoprazole, 40 mg, Oral, Daily piperacillin-tazobactam, 4.5 g, Intravenous, q6h polyethylene glycol, 17 g, Oral, Daily predniSONE, 5 mg, Oral, Daily with breakfast senna-docusate, 2 tablet, Oral, BID sodium chloride, 10 mL, Intravenous, q12h sodium chloride, 10 mL, Intravenous, q12h sodium chloride, 10 mL, Intravenous, q12h sodium chloride, 10 mL, Intravenous, q12h sulfamethoxazole-trimethoprim, 1 tablet, Oral, Daily tacrolimus, 2 mg, Oral, Every Morning (0600) tacrolimus, 2 mg, Oral, q PM (1800) traZODone, 50 mg, Oral, Nightly ursodiol, 300 mg, Oral, BID valGANciclovir, 450 mg, Oral, Daily [3] glucose, 15-30 grams of glucose, Sublingual, q15 min PRN OR dextrose 10 %, 125 mL, Intravenous, q15 min PRN OR dextrose 10 %, 250 mL, Intravenous, q15 min PRN OR glucagon (human recombinant), 1 mg, Intramuscular, q15 min PRN hydrALAZINE, 10 mg, Intravenous, q1h PRN OR hydrALAZINE, 20 mg, Intravenous, q1h PRN hydrOXYzine HCl, 10 mg, Oral, q6h PRN labetalol, 10 mg, Intravenous, q1h PRN OR labetalol, 20 mg, Intravenous, q1h PRN ondansetron, 4 mg, Intravenous, q6h PRN oxyCODONE, 5 mg, Oral, q4h PRN OR oxyCODONE, 10 mg, Oral, q4h PRN Insert peripheral IV, , , Once AND Saline lock IV, , , Once AND sodium chloride, 10 mL, Intravenous, q12h AND sodium chloride, 10 mL, Intravenous, PRN Insert peripheral IV, , , Once AND Saline lock IV, , , Once AND sodium chloride, 10 mL, Intravenous, q12h AND sodium chloride, 10 mL, Intravenous, PRN Insert peripheral IV, , , Once AND Saline lock IV, , , Once AND sodium chloride, 10 mL, Intravenous, q12h AND sodium chloride, 10 mL, Intravenous, PRN sodium chloride, 10 mL, Intravenous, q1h PRN sodium chloride, 20 mL, Intravenous, q1h PRN * Progress Notes - Armida Garsia - 01/13/2025 11:05 AM EST Occupational Therapy Treatment Patient Name: Orly White Today's Date: 01/13/2025 OT Discharge Recommendations: Home with 24 hour assistance, Outpatient PT, Outpatient OT Equipment Recommended: Rolling walker Subjective Patient agreeable to OT treatment following RN's consent. Participants in Care Family/Caregiver Present: Yes Family/Caregiver: Spouse Presentation Oxygen Therapy: None (Room air) Lines and Tubes: Intravenous access Pre-Session: Sitting in chair, Chair alarm, Lines intact Post-Session: Sitting in chair, RN notified, Lines intact, Call light in reach Post-Session Comments: Patient positioned for comfort with all needs in reach. at bedside. Precautions Medical Precautions: Post-Surgical precautions, Fall precautions Post-Surgical Precautions: Abdominal: no lifting >10# Objective Pain Patient denies pain throughout session. Patient provided with cuing throughout activity for pain management techniques and provided with repositioning for comfort and pressure relief. Delirium Screening RASS: Alert and calm Confusion Assessment Method-ICU (CAM-ICU/PCAM-ICU) Feature 1: Acute Onset or Fluctuating Course: Negative Feature 3: Altered Level of Consciousness: Negative Overall CAM-ICU/PCAM-ICU: Negative Cognition Cognition Overall Cognitive Status: Within Functional Limits Arousal/Alertness: Appropriate responses to stimuli Mood/Behavior: Alert, Distractible, Impulsive Orientation Level: Oriented X4 Single Step Commands: Consistently Multi-Step Commands: Consistently Method of Communication: Verbal Safety Judgment: Good awareness of safety precautions Awareness of Errors: Good awareness of errors made Deficit Awareness: Fully aware of deficits Attention Span: Appears intact Self-Care Interventions Self Care/Home Management (ADLs) Time Entry: 30 Feeding Feeding Level of Assistance: Modified independent Feeding Where Assessed: Chair Level Feeding Interventions: pt demo's functional strength and dexterity needed for food tray set up and self feeding routine completion from tray table, intermittent tremulous motor patterns noted throughout intentional grasping and manipulation of items involving both fine and gross motor movement Grooming Grooming Level of Assistance: Setup, Contact guard Grooming Where Assessed: Standing sinkside Grooming Interventions: pt demo's functional strength, endurance/activity tolerance, and balance needed for simple grooming task completion standing at sink with CGA using RW UE Dressing UE Dressing Level of Assistance: Modified independent UE Dressing Where Assessed: Chair level UE Dressing Interventions: gown management/adjustments, in both sitting AND standing Lower Extremity Dressing Sock Level of Assistance: Modified independent, Setup LE Dressing Where Assessed: Chair level LE Dressing Interventions: pt completes sock adjustment task from chair with cuing for adapted bodymechanics and figure four technique with functional anterior reach toward distal LEs Toileting Toileting Level of Assistance: Setup, Contact guard Where Assessed: Toilet Toileting Interventions: pt requires CGA for ambulation using RW to/from bathroom, pt reports completing lauren care with SBA and set up from staff while seated on commode, based on clinical observation with additional transfers and ADL tasks, pt requires CGA for toilet transfers using RW and grab bar to R side PRN, pt demos functional LE strength, balance, and activity tolerance necessary for toileting routine to be completed at bathroom level Bed Mobility Bed Mobility Interventions: pt recieved and left sitting upright in bedside chair Transfers Transfer Exam: Sit to stand Level of [place]: (SBA with RW, CGA without AD) Physical/Nonphysical Assist: Verbal Cues, Nonverbal cues (demo/gestures), 1 person + 1 person to manage equipment Assistive Device: (trials with and without RW) Transfer Exam: Stand to Sit Level of [place]: (SBA with RW, CGA without AD) Physical/Nonphysical Assist: Nonverbal cues (demo/gestures), Verbal Cues, 1 person + 1 person to manage equipment Assistive Device: (trials with and without RW) Balance Postural Appearance Posture: Rounded shoulders, Forward head Static Sitting Balance Static Sitting-Balance Support: Feet supported, Right upper extremity support, Left upper extremitysupport Static Sitting-Level of Assistance: Supervision Dynamic Sitting Balance Dynamic Sitting-Balance Support: Feet supported (varying UE support) Dynamic Sitting-Balance: Lateral weight shifts, Anterior/Posterior weight shifts Level of Assistance: Standby assisst Dynamic Sitting - Interventions: scooting in bedside chair Static Standing Balance Static Standing-Balance Support: Right upper extremity support, Left upper extremity support Static Standing-Level of Assistance: Contact guard Dynamic Standing Balance Dynamic Standing Level of Assistance: Contact guard Functional Mobility Device: Rolling walker initially, progresses to CGA using no AD/no LUMBER STACKER DRIVER Apparatus: Chair follow Assistance: Contact guard assist, pt requires CGA for head positional changes, functional reaching,weight shifting outside base of support, and directional changes throughout ambulation ~household simulated distances, seated rest breaks provided throughout balance training activities Therapeutic Exercise (11 minutes) 1# weights provided for use with the following ariel UE strengthening HEP issued this date, FuturedermAccess Code: [email or web address] URL: [email or web address] Exercises include- Single Arm Shoulder Flexion with Dumbbell - 2 x daily - 7 x weekly - 2 sets - 5-10 reps - Seated Single Arm Bicep Curls with Rotation and Dumbbell - 2 x daily - 7 x weekly - 3 sets - 5-10 reps - Single Arm Scaption with Dumbbell - 2 x daily - 7 x weekly - 3 sets - 5-10 reps - Seated Single Arm Shoulder Press with Dumbbell- 2 x daily - 7 x weekly - 3 sets - 5-10 reps - Seated Triceps Extension with Dumbbell Single Arm -2 x daily - 7 x weekly - 3 sets - 5-10 reps , Additionally- a green theraband was provided for use with previously issued strengthening HEP provided via OT staff, for increased resistive training in prep for ADL/transfers, pt reports good understanding for HEP instruction provided this date Assessment Patient progressing well toward OT goals- d/c recommendations updated this date to reflect functional progress made since previous session. Patient's overall activity tolerance, endurance, balance, and strength is improving substantially. OT for continued safety, strength, balance, and endurance training in prep for higher level ADL/IADL tasks/routines as pt continues to be limited by mild generalized weakness, deconditioning, mild impulsivity, instability in standing, intermittent pain, and dyspnea with exertion. Patient remains a fall risk with SBA-CGA from staff for basic self care routines using RW in standing. Continue with OT POC- pt is very motivated for participation in OT process, and very motivated to return home with family at time of d/c from acute setting. OT Recommendations Discharge Destination: Home with 24 hour assistance, Outpatient PT, Outpatient OT Discharge Equipment: Rolling walker Plan Patient remains appropriate for current OT POC. Continue OT POC. Goals OT GOAL DETAILS Goal Established Date Time Frame Goal Status OT Goal 1: Pt. will complete lower body dressing with SBA + AE as needed 01/05/25 2 weeks OT Goal 2: Pt. will complete transfer to standard height toilet seat with SBA and LRAD including entering/exiting bathroom 01/05/25 2 weeks OT Goal 3: Pt will complete toileting including lauren-hygiene and clothing management with set-up A + supervision for safety. 01/05/25 2 weeks OT Goal 4: Pt. will complete sequential grooming tasks with SBA standing sinkside >3 minutes in duration 01/05/25 2 weeks Written by Armida Garsia on 01/13/25 at 1:05 PM. * Progress Notes - Laura Muñiz LCSW - 01/13/2025 10:56 AM EST Transplant Social Work Progress Note Identifying Information: Patient Name: Orly White Date of : 1980 Clinical Summary: Txp SW is actively collaborating with the multidisciplinary team to support ongoing psychosocial needs. Per team, the patient continues to recover status post liver transplant performed on 01/03/25. Txp SW completed an in-person bedside visit for continued assessment of psychosocial needs. Psychosocial needs are assessed via open-ended questions to explore adjustment, coping mechanisms, and supports. Patient with slow uptrend in bili, s/p ERCP, IR for liver biopsy, continue NPO, solumedrol today. Patient/Caregiver Expressed Concerns Regarding: SW met with patient and at bedside. Patient sitting up in chair, conversant, alert and oriented. Supportive Counseling Provided Focused On: [x]Supportive counseling on coping with transplant emotions, transplant-related anxiety, and adjustment post-transplant []Caregiver roles and expectations [x]Coping with illness and medical complexity []Encouragement of coping strategies (journaling, mindfulness, relaxation) []Review of support systems and resource availability []Financial stressor support and housing assistance []Provided caregiver support and education [x]Supported patient in expressing concerns and questions to the transplant team to foster self-advocacy []Review of advanced directives []Reinforced housing and transportation plans upon discharge [x]Txp SW provided contact information and encouraged the patient and caregiver to reach out as needed Plan: Txp SW to continue monitoring psychosocial status throughout hospitalization Txp SW to provide ongoing supportive counseling and education Txp SW will continue to document any significant changes or interventions in follow-up notes Txp SW to maintain collaboration with the multidisciplinary team for post- transplant psychosocial needs Laura Muñiz LCSW, [facility] Transplant Physicist [facility] * Progress Notes - Gretel Perez MD - 01/13/2025 10:08 AM EST GASTROENTEROLOGY DAILY PROGRESS NOTE SUBJECTIVE Interval History Had ERCP yesterday with no stricture. Stent was placed. IR consulted for liver biopsy today. TB worsening to 11 Review of Systems GEN: afebrile, denies chills RESP: denies cough or SOB CV: denies chest pain or palpiations OBJECTIVE Physical Exam Blood pressure (!) 143/74, pulse 66, temperature 36.7 ??C (98.1 ??F), temperature source Oral, resp. rate 18, height 1.88 m (6' 2.02 ), weight 96 kg (211 lb 10.3 oz), SpO2 97%. GEN: awake, alert, appears chronically ill HEENT: non-interic sclera, atraumatic, nose patent EYES: EOMI CV: well perfused RESP: no increased WOB, symmetric chest rise GI: soft, non-tender, non-distended, neg fluid wave MSK: moves limbs spontaneously NEURO: alert and orientated, neg asterixis SKIN: non-jaundice, warm PSYCH: appropriate mood and affect Intake / Output Intake/Output Summary (Last 24 hours) at 01/13/2025 1008 Last data filed at 01/13/2025 0432 Gross per 24 hour Intake 500 ml Output 595 ml Net -95 ml Current Medications Current Scheduled Medications[1] Current Continuous Medications[2] Current PRN Medications[3] Results / Imaging All relevant labs and imaging over the last 24 hours were personally reviewed. ASSESSMENT/PLAN Mr. Orly White is a 44 y.o. year old male with a PMH of decompensated alcohol related cirrhosis s/p OLT, ascites, HE, SBP, depression, anxiety, GERD, and HTN who presents to [facility] on 01/02 for possible liver transplant. The inpatient gastroenterology, hepatology and nutrition team was asked to see him in consultation for biliary stricture. He is s/p liver transplant on 01/03/2025. # Cirrhosis s/p OLT # Hyperbilirubinemia, worsening # Concern for anastomotic biliary stricture - He is s/p liver transplant on 01/03/2025. - Labs remarkable initially for ALT 88, AST 31, ALP 121 and T kip 8.5 - MRCP notable for short segment (approximately 1 cm) apparent narrowing in the extrahepatic duct at the suspected anastomosis is likely artifactual given presence of adjacent susceptibility artifactand lack of associated proximal bile duct dilatation. - ERCP 01/12 Complete major papilla sphincterotomy performed. Cholangiogram reveals normal hepatobiliary ductal system, with no significant evidence of anastomotic mismatch or stricture. Balloon sweeps with removal of contrast and bile. One 7 Fr x 7 cm double pigtail stent placed in the right main hepatic duct. RECOMMENDATIONS: - Continue to trend LFTs - Avoid therapeutic anticoagulation and therapeutic antiplatelet for 72h post- procedure (okay for Aspirin 81mg and DVT prophylaxis) - Repeat ERCP with stent exchange/removal in 3 months - IR for liver biopsy today. - Continue immunosuppressants Discussed with Dr. Garcia Thank you for allowing us to participate in this patient's care. GI will sign off. Please do not hesitate to call or page with questions or concerns. Gretel Perez MD Department of Gastroenterology and Nutrition PGY-6 GI Fellow Pager: [phone] Prefer Epic Chat [1] amLODIPine, 5 mg, Oral, Daily aspirin, 81 mg, Oral, Daily bisacodyl, 10 mg, Rectal, Daily buPROPion SR, 150 mg, Oral, BID carvedilol, 25 mg, Oral, BID ergocalciferol, 50,000 Units, Oral, Weekly escitalopram, 10 mg, Oral, Daily ferrous sulfate, 324 mg, Oral, Daily with breakfast fluconazole, 200 mg, Oral, Daily [Held by provider] heparin (porcine), 5,000 Units, Subcutaneous, BID insulin lispro, 0-5 Units, Subcutaneous, TID with meals insulin lispro, 0-3 Units, Subcutaneous, Twice at night methocarbamol, 500 mg, Oral, 4x daily methylPREDNISolone sod suc (PF), 250 mg, Intravenous, Once mycophenolate, 500 mg, Oral, BID pantoprazole, 40 mg, Oral, Daily piperacillin-tazobactam, 4.5 g, Intravenous, q6h polyethylene glycol, 17 g, Oral, Daily predniSONE, 5 mg, Oral, Daily with breakfast senna-docusate, 2 tablet, Oral, BID sodium chloride, 10 mL, Intravenous, q12h sodium chloride, 10 mL, Intravenous, q12h sodium chloride, 10 mL, Intravenous, q12h sodium chloride, 10 mL, Intravenous, q12h sulfamethoxazole-trimethoprim, 1 tablet, Oral, Daily tacrolimus, 2 mg, Oral, Every Morning (0600) tacrolimus, 2 mg, Oral, q PM (1800) traZODone, 50 mg, Oral, Nightly ursodiol, 300 mg, Oral, BID valGANciclovir, 450 mg, Oral, Daily [2] [3] PRN medications: glucose OR dextrose 10 % OR dextrose 10 % OR glucagon (human recombinant), hydrALAZINE OR hydrALAZINE, hydrOXYzine HCl, labetalol OR labetalol, ondansetron, oxyCODONE OR oxyCODONE, sodium chloride, Insert peripheral IV AND Saline lock IV AND sodium chloride AND sodium chloride, Insert peripheral IV AND Saline lock IV AND sodium chloride AND sodium chloride, Insert peripheral IV AND Saline lock IV AND sodium chloride AND sodium chloride, sodium chloride Cosigned by Parmjit Garcia MD at 01/14/2025 7:54 AM EST Associated attestation - Parmjit Garcia MD - 01/14/2025 7:54 AM EST I saw and evaluated the patient with the resident/fellow. I discussed the case with the resident/fellow and agree with the findings and plan as documented. * Progress Notes - Estee Rosales - 01/13/2025 8:53 AM EST Transplant Surgery Progress Note Events of past 24 hours: Orly White is a 44yo male with a PMH of decompensated alcohol related cirrhosis, ascites, HE, SBP, depression, anxiety, GERD, and HTN who presents to [facility] on 01/02 for possible liver transplant. 01/03: OLT Interval: POD10. NAEON. MRCP with evidence of biliary stricture. Liver U/S ok. VSS. Hgb and WBC S. Cr mildy uptrending. LFT stable, but Tbili increase 11 from 10.4. Edited by: Estee Rosales at 01/13/2025 0853 Review of Systems: 14-point ROS negative except as above in HPI. Last Recorded Vitals Blood pressure (!) 143/74, pulse 66, temperature 36.7 ??C (98.1 ??F), temperature source Oral, resp. rate 18, height 1.88 m (6' 2.02 ), weight 96 kg (211 lb 10.3 oz), SpO2 97%. Output by Drain (mL) 01/11/25 0700 - 01/11/25 1859 01/11/25 1900 - 01/12/25 0659 01/12/25 0700 - 01/12/25 1859 01/12/25 1900 - 01/13/25 0659 01/13/25 0700 - 01/13/25 0900 Patient has no LDAs of requested type attached. Physical Exam GENERAL: EYES: PERRL NEURO: GCS 15 HENT: No lesions in anterior nares; no lesions in oropharynx, head atraumatic and normocephalic NECK: Supple. No thyromegaly or adenopathy. No JVD noted. The trachea appears midline. RESP: Symmetric expansion; no retractions. CARD: regular rate, normotension Extremities: no cyanosis or clubbing GI: No organomegaly or masses. Nontender nondistended. SKIN: No rash, sores, lesions or subcutaneous nodules. Results: Labs in last 18 hours Labs are independently reviewed daily. CBC WBC 5.82 Hb 8.5 (L) Plt 54 (L) Hct 25.6 (L) ANC ?? INR 1.1, PTT ??, Anti-Xa ?? BMP Na 138 Cl 105 BUN 26 (H) Glu 88 K 3.9 Co2 21 (L) Cr 1.73 (H) Ca 7.7 (L) iCa ?? Mg 2.1, Phos 3.3 Lactate ?? LFT AST 28 AlkPhos 103 T Prot 4.5 (L) ALK 60 (H) Bili 11.0 (H) Alb ?? D.Bili ?? Coags: INR Date Value Ref Range Status 01/13/2025 1.1 0.9 - 1.1 Final Prothrombin Time Date Value Ref Range Status 01/13/2025 14.6 (H) 12.0 - 14.3 sec Final aPTT Date Value Ref Range Status 01/03/2025 48 (H) 25 - 35 sec Final Fibrinogen, Quantitative (Clottable) Date Value Ref Range Status 01/03/2025 134 (L) 208 - 459 mg/dL Final ABG: pH, Mixed Venous Date Value Ref Range Status 01/03/2025 7.31 (L) 7.32 - 7.43 Final pCO2, Mixed Venous Date Value Ref Range Status 01/03/2025 42 40 - 55 mmHg Final pO2, Mixed Venous Date Value Ref Range Status 01/03/2025 53 (H) 25 - 40 mmHg Final Base Excess, Mixed Venous Date Value Ref Range Status 01/03/2025 -5.1 (L) -2.0 - 3.0 mmol/L Final Bicarbonate, Calculated, Arterial Date Value Ref Range Status 01/03/2025 21 (L) 22 - 26 mmol/L Final Body Temperature Date Value Ref Range Status 01/03/2025 37.0 Celsius Final VBG: No results found for: BDVEN , BEVEN , LPW5TXY , TAE6EUX , PHVEN , PO2VEN , O9QJMLJX , VPY8HQQOOPZ , PHVENTEMP Lactate: Lactate, Arterial, Whole Blood Date Value Ref Range Status 01/03/2025 1.7 (H) 0.5 - 1.6 mmol/L Final Medications Current Scheduled Medications[1] Current Continuous Medications[2] Current PRN Medications[3] Imaging (past 24h): I personally visualized and interpreted all of the imaging studies below and I agree with formal interpretation. Assessment and Plan Medical Problems Problem List * (Principal) Decompensation of cirrhosis of liver (CMS/HCC) Tobacco use disorder, continuous Insomnia Anemia SBP (spontaneous bacterial peritonitis) Essential (primary) hypertension GERD (gastroesophageal reflux disease) Anxiety Thrombocytopenia (CMS/HCC) Hypotension Elevated INR Coagulopathy NINA (acute kidney injury) Abdominal distension [ ] resume asa & heparin after bx [ ] NPO for IR biopsy today Orly White is a 44yo male with a PMH of decompensated alcohol related cirrhosis, ascites, HE, SBP, depression, anxiety, GERD, and HTN who presents to [facility] on 01/02 for possible liver transplant. Now s/p liver transplant on 01/03. Extubated post-op 01/03 to ND, now on RA. HDS off pressors. Abdominal exam is stable. Tbili has been increasing significantly, US Liver unremarkable with patent flow, MRCP consistent with biliary stricture. NINA improving. We will continue ursodiol and zosyn. ERCP, no stricture, stent placed. T bili continues to rise 11.0 (10.4) Neuro: GCS 14. MMPC - home escitalopram, wellbutrin, trazodone CV: HDS - on home coreg 25mg BID Pulm: RA, pulm hygiene GI: CLD (but NPO for IR bx) Gu: LFTs, Tbili increasing. WBC WNL. Stared zosyn empirically 01/12- - ursodiol 300 BID - PPI BID : trending output; 15mg/kg and uptrending Cr. Will monitor, considering bolus. ID: AF, WBC WNL - fluconazole - zosyn Heme: Hgb S, plts 54 (45) - can resume heparin after bx - home ferrous sulfate Immunosuppression: cellcept 500 mg BID, pred 5, fk 2/2 GI reg: PPI, miralax, doc-senna LTD: PIV x2, DVT ppx: SCDs, SQH BID held, asa held Consults: PM&R PT/OT: 01/08: acute rehab Dispo: acute rehab Getting solumedrol today. Pending IR bx today Edited by: Estee Rosales at 01/13/2025 0859 Estee Rosales DO [1] amLODIPine, 5 mg, Oral, Daily aspirin, 81 mg, Oral, Daily bisacodyl, 10 mg, Rectal, Daily buPROPion SR, 150 mg, Oral, BID carvedilol, 25 mg, Oral, BID ergocalciferol, 50,000 Units, Oral, Weekly escitalopram, 10 mg, Oral, Daily ferrous sulfate, 324 mg, Oral, Daily with breakfast fluconazole, 200 mg, Oral, Daily [Held by provider] heparin (porcine), 5,000 Units, Subcutaneous, BID insulin lispro, 0-5 Units, Subcutaneous, TID with meals insulin lispro, 0-3 Units, Subcutaneous, Twice at night methocarbamol, 500 mg, Oral, 4x daily methylPREDNISolone sod suc (PF), 250 mg, Intravenous, Once mycophenolate, 500 mg, Oral, BID pantoprazole, 40 mg, Oral, Daily piperacillin-tazobactam, 4.5 g, Intravenous, q6h polyethylene glycol, 17 g, Oral, Daily predniSONE, 5 mg, Oral, Daily with breakfast senna-docusate, 2 tablet, Oral, BID sodium chloride, 10 mL, Intravenous, q12h sodium chloride, 10 mL, Intravenous, q12h sodium chloride, 10 mL, Intravenous, q12h sulfamethoxazole-trimethoprim, 1 tablet, Oral, Daily tacrolimus, 2 mg, Oral, Every Morning (0600) tacrolimus, 2 mg, Oral, q PM (1800) traZODone, 50 mg, Oral, Nightly ursodiol, 300 mg, Oral, BID valGANciclovir, 450 mg, Oral, Daily [2] [3] PRN medications: glucose OR dextrose 10 % OR dextrose 10 % OR glucagon (human recombinant), hydrALAZINE OR hydrALAZINE, hydrOXYzine HCl, labetalol OR labetalol, ondansetron, oxyCODONE OR oxyCODONE, sodium chloride, Insert peripheral IV AND Saline lock IV AND sodium chloride AND sodium chloride, Insert peripheral IV AND Saline lock IV AND sodium chloride AND sodium chloride, sodium chloride Cosigned by Satnam Beckford MD at 01/13/2025 10:41 AM EST Associated attestation - Satnam Beckford MD - 01/13/2025 10:41 AM EST I saw and evaluated the patient with the resident/fellow. I discussed the case with the resident/fellow and agree with the findings and plan as documented. S/p OLT on 01/03. Complicated by acute blood loss anemia requiring tx post op. Slow uptrend in bili. 24hrs: s/p ERCP - not significant for stricture. Tbili remains elevated post procedure. Afebrile,vss On ra Give solumedrol 500mg IV today. Obtain CMV/EBV/HSV pcr Consult IR for liver biopsy Keep NPO. Continue zosyn ERCP -unremarkable H/h stable No leukocytosis Hold ASA/SQH for procedure FK/Pred/mmf 500mg BID Immunosuppression medication requires regular monitoring to ensure that the patient is not experiencing any adverse effects as a result for the therapeutic agent. I have therefore, managed the patient's immunosuppression medication listed in this note, addressed any toxic side effects, and adjustedlevels appropriately. Continue inpatient care Satnam Beckford MD * Consults - Vanda Maguire APRN, PATTI - 01/13/2025 8:14 AM ESTAssociated Order(s): IP CONSULT TO INTERVENTIONAL RADIOLOGY Images from the original note were not included. 01/13/25 Patient: Orly White Date of : 1980/45 y.o. Requesting Service: Satnam Beckford MD Chief Complaint: Decompensated of cirrhosis of liver Reason for Consult: Random liver biopsy History of Present Illness: Orly White is a 45 y.o. male with a past medical history of decompensated alcohol related cirrhosis s/p OLT, ascites, HE, SBP, depression, anxiety, GERD, and HTN, who presented to [facility] on 01/02 for liver transplant. He underwent liver transplant 01/03/25. Post-transplant, his total bilirubin has shown an upward trend. An MRCP on 01/10/25 demonstrated a suspected anastomotic biliary stricture, although interpretation was limited by artifact. The patient underwent ERCP on 01/12/25, during which a stent was placed in the right main hepatic duct. Despite intervention, bilirubin continues to rise as of today. VIR was consulted for random liver biopsy. History and admission information obtained from chart review of primary and consulting teams notation, as well as speaking directly to consulting team. The following portions of the chart were reviewed this encounter and updated as appropriate: Review of Systems: 14 point ROS negative except for above. Past Medical History[1] Surgical History[2] Social History[3] Family History: Personally reviewed and noncontributory. Allergies[4] Objective: All laboratory, images, tracings, and vital sign data are personally reviewed unless otherwise noted. VITALS: Temp: [36.6 ??C (97.9 ??F)-37 ??C (98.6 ??F)] 36.7 ??C (98.1 ??F) Heart Rate: [63-76] 66 Resp: [11-21] 18 BP: (125-155)/(66-87) 143/74 Weight: 105 kg (232 lb 9.4 oz) Body mass index is 27.16 kg/m??. I & O SUMMARY I/O last 3 completed shifts: In: 500 (5.2 mL/kg) [I.V.:500 (5.2 mL/kg)] Out: 1920 (20 mL/kg) [Urine:1800 (0.5 mL/kg/hr); Drains:120] Weight: 96 kg No intake/output data recorded. MEDICATIONS: Current Medications[5] LABS (PAST 18Labs in last 18 hours) CBC WBC 5.82 Hb 8.5 (L) Plt 54 (L) Hct 25.6 (L) INR 1.1 PTT ?? Anti-Xa ?? BMP Na 138 Cl 105 BUN 26 (H) Glu 88 K 3.9 Co2 21 (L) Cr 1.73 (H) Ca 7.7 (L) Mg 2.1 Phos 3.3 Lactate ?? LFT AST 28 AlkPhos 103 T Prot 4.5 (L) ALK 60 (H) Bili 11.0 (H) Alb ?? D.Bili ?? HOURS) EXAM: GENERAL: No acute distress EYES: No scleral icterus or conjunctivitis HENT: Atraumatic, normocephalic NECK: Supple RESP/CHEST: Symmetric expansion, non labored CARD: Regular rate and rhythm Extremities: No edema, cyanosis or clubbing; pedal pulses palpable +2 GI: No organomegaly or masses; soft, non-tender, non-distended SKIN: No rash, sores, lesions or subcutaneous nodules, jaundice NEURO: Alert Radiographics/Diagnostics: Imaging personally reviewed and reviewed with attending. === 10/18/24 === CT ABDOMEN W IV CONTRAST - Narrative - CLINICAL INDICATION: Inpatient Liver Transplant Eval TECHNIQUE: Multiple axial CT images were obtained of liver and abdomen with administration of IV contrast, Omnipaque 350, 150 mL. Images were obtained during arterial, portal venous, and delayed phases. Reformatted images in the coronal and sagittal planes were generated from the axial data set to facilitate diagnostic accuracy. Total DLP (Dose-Length Product): 1300.99 mGy.cm. Please note: The reported value represents the total of one or more individual components during the CT acquisition on this date and at this time, andas such, the same value may appear in more than one CT report depending on the interpreting/reporting physicians. COMPARISON: Outside CT September 04, 2024. FINDINGS: Liver, Gallbladder, Biliary Tract: Morphologic changes [...] and portosystemic collaterals. Small left pleural effusion. CRITICAL RESULT: No. COMMUNICATION: Per this written report. Drafted by Milagros Morrell MD on 10/23/2024 7:21 AM Final report signed by Milagros Morrell MD on 10/23/2024 7:36 AM === 01/02/25 === XR CHEST 1 VIEW - Narrative - CLINICAL INDICATION: sob TECHNIQUE: Single AP view of chest. COMPARISON: 2 days prior FINDINGS: Interval removal of the right central venous catheter. The cardiomediastinal contours unchanged. Nopneumothorax. No sizable pleural effusion. No lung consolidation or airspace disease. Low lung volume. - Impression - No significant interval change. CRITICAL RESULT: No. COMMUNICATION: Per this written report. Drafted by Hermila Tapia MD on 01/08/2025 1:36 PM Final report signed by Hermila Tapia MD on 01/08/2025 1:37 PM Echo, Adult Transthoracic Complete Result Date: 10/23/2024 [...] is no recent study available for direct [id number] comparison. Assessment & Plan: Decompensated alcohol related cirrhosis s/p OLT11/22/25 Ascites HE SBP Hyperbilirubinemia MELD 3.0: 25 at 01/13/2025 4:43 AM MELD-Na: 22 at 01/13/2025 4:43 AM Calculated from: Serum Creatinine: 1.73 mg/dL at 01/13/2025 4:43 AM Serum Sodium: 138 mmol/L (Using max of 137 mmol/L) at 01/13/2025 4:43 AM Total Bilirubin: 11 mg/dL at 01/13/2025 4:43 AM Serum Albumin: 2.4 g/dL at 01/13/2025 4:43 AM INR(ratio): 1.1 at 01/13/2025 4:43 AM Age at listing (hypothetical): 45 years Sex: Male at 01/13/2025 4:43 AM - s/p liver transplant 01/03/25 - personally reviewed MRCP on 01/10/25 demonstrated a suspected anastomotic biliary stricture, although interpretation was limited by artifact. - ERCP on 01/12/25, during which a stent was placed in the right main hepatic duct. - Labs: 01/11/25: ALT 88; AST 31; ALK PHOS 121 01/12/25: ALT 70; AST 22 ALK PHOS 107 01/13/25: ALT 60; AST 28; ALK PHOS 103 - INR 1.1, Plt 54 (L) - VSS, Afebrile PLAN: - Will perform US guided random liver biopsy today - Primary team to place specimen orders - Will consent prior to procedure Thank you for allowing us to participate in the care of this patient. Vanda Maguire, SEO ASSISTANT, DNP Interventional Radiology [phone] [1] Past Medical History: Diagnosis Date Anxiety Ascites Cirrhosis (CMS/HCC) Depression Enterocolitis due to Clostridium difficile, not specified as recurrent 11/04/2024 Esophageal varices GERD (gastroesophageal reflux disease) Hepatic encephalopathy (CMS/HCC) Hypertension Patient on waiting list for liver transplant 12/30/2024 SBP (spontaneous bacterial peritonitis) Tobacco use disorder [2] Past Surgical History: Procedure Laterality Date VASECTOMY [3] Social History Tobacco Use Smoking status: Never Passive exposure: Current Smokeless tobacco: Current Types: Chew Substance Use Topics Alcohol use: Not Currently Comment: Quit 2 months ago Drug use: Never [4] Allergies Allergen Reactions Amoxicillin Hives and Rash Childhood allergy [5] Current Facility-Administered Medications: amLODIPine (Norvasc) tablet 5 mg, 5 mg, Oral, Daily, Camilla Soto APRN, PATTI, 5 mg at 01/12/25 0852 aspirin chewable tablet 81 mg, 81 mg, Oral, Daily, Velasquez Campos MD, 81 mg at 01/12/25 1716 bisacodyl (Dulcolax) suppository 10 mg, 10 mg, Rectal, Daily, Tg Morales APRN, 10 mg at 01/09/25 0844 buPROPion SR (Wellbutrin SR) 12 hr tablet 150 mg, 150 mg, Oral, BID, Félix Simmons APRN, PATTI, 150 mg at 01/12/252024 carvedilol (Coreg) tablet 25 mg, 25 mg, Oral, BID, Camilla Soto APRN, DNP, 25 mg at 01/12/252017 glucose (Glutose) 40 % oral gel 15-30 grams of glucose, 15-30 grams of glucose, Sublingual, q15 minPRN OR dextrose 10 % (D10W) bolus 125 mL, 125 mL, Intravenous, q15 min PRN, Last Rate: 500 mL/hr at 01/12/25 1319, 125 mL at 01/12/25 1319 OR dextrose 10 % (D10W) bolus 250 mL, 250 mL, Intravenous, q15 min PRN OR glucagon (human recombinant) injection 1 mg, 1 mg, Intramuscular, q15 min PRN, Velasquez Campos MD ergocalciferol (Vitamin D-2) capsule 50,000 Units, 50,000 Units, Oral, Weekly, Maciel Olson MD, 50,000 Units at 01/09/25 0844 escitalopram (Lexapro) tablet 10 mg, 10 mg, Oral, Daily, Félix Simmons APRN, DNP, 10 mg at 01/12/25 0852 ferrous sulfate EC tablet 324 mg, 324 mg, Oral, Daily with breakfast, Félix Simmons APRN, DNP, 324 mg at 01/12/25 0851 fluconazole (Diflucan) tablet 200 mg, 200 mg, Oral, Daily, Maciel Olson MD, 200 mg at 01/12/25 0852 [Held by provider] heparin (porcine) injection 5,000 Units, 5,000 Units, Subcutaneous, BID, Félix Simmons APRN, DNP, 5,000 Units at 01/08/252055 hydrALAZINE (Apresoline) injection 10 mg, 10 mg, Intravenous, q1h PRN, 10 mg at 01/03/25 170 OR hydrALAZINE (Apresoline) injection 20 mg, 20 mg, Intravenous, q1h PRN, Camilla Soto APRN, DNP, 20 mg at 01/06/25 0725 hydrOXYzine HCl (Atarax) tablet 10 mg, 10 mg, Oral, q6h PRN, Yari Quesada MD, 10 mg at 01/12/25 171 insulin lispro (Admelog) 100 units/mL injection - Correction - Standard Dose, 0- 5 Units, Subcutaneous, TID with meals, Yari Quesada MD insulin lispro (Admelog) injection - Correction - Nighttime Dose, 0-3 Units, Subcutaneous, Twice atnight, Yari Quesada MD labetalol (Normodyne,Trandate) injection 10 mg, 10 mg, Intravenous, q1h PRN, 10 mg at 01/04/252008OR labetalol (Normodyne,Trandate) injection 20 mg, 20 mg, Intravenous, q1h PRN, Camilla Soto APRN, DNP, 20 mg at 01/07/251918 methocarbamol (Robaxin) tablet 500 mg, 500 mg, Oral, 4x daily, Cheryl Choi MD, 500 mg at 01/12/252024 methylPREDNISolone sodium succinate (PF) (SOLU-Medrol) 250 mg in sodium chloride 0.9 % 100 mL IVPB,250 mg, Intravenous, Once, Velasquez Campos MD mycophenolate (Cellcept) capsule 500 mg, 500 mg, Oral, BID, Yari Quesada MD, 500 mg at 01/12/252017 ondansetron (Zofran) injection 4 mg, 4 mg, Intravenous, q6h PRN, Negro Cr MD, 4 mg at 01/04/25 1722 oxyCODONE (Roxicodone) immediate release tablet 5 mg, 5 mg, Oral, q4h PRN, 5 mg at 01/12/25 0852 OR oxyCODONE (Roxicodone) immediate release tablet 10 mg, 10 mg, Oral, q4h PRN, Cheryl Choi MD, 10 mg at 01/13/25 0549 pantoprazole (Protonix) EC tablet 40 mg, 40 mg, Oral, Daily, Camilla Soto APRN, PATTI, 40 mg at 01/12/25 0852 piperacillin-tazobactam (Zosyn) 4.5 g in sodium chloride 0.9% 100 mL IVPB (vial adapter required), 4.5 g, Intravenous, q6h, Negro Cr MD, Last Rate: 36.7 mL/hr at 01/13/25 0637, 4.5 g at 01/13/25 0637 polyethylene glycol (Miralax) packet 17 g, 17 g, Oral, Daily, Tg Morales APRN, 17 g at 01/10/25 0927 predniSONE (Deltasone) tablet 5 mg, 5 mg, Oral, Daily with breakfast, Negro Cr MD, 5 mg at 01/12/25 0852 senna-docusate (Lauren-Colace) 8.6-50 MG per tablet 2 tablet, 2 tablet, Oral, BID, Tg Morales APRN, 2 tablet at 01/12/25 0851 sodium chloride 0.9 % flush 10 mL, 10 mL, Intravenous, q12h, Camilla Soto APRN, PATTI, 10 mL at 01/13/25 0556 sodium chloride 0.9 % flush 10 mL, 10 mL, Intravenous, q1h PRN, Camilla Soto APRN, PATTI Insert peripheral IV, , , Once AND Saline lock IV, , , Once AND sodium chloride 0.9 % flush10 mL, 10 mL, Intravenous, q12h, 10 mL at 01/12/25 4902 AND sodium chloride 0.9 % flush 10 mL, 10 mL, Intravenous, PRN, Da De MD Insert peripheral IV, , , Once AND Saline lock IV, , , Once AND sodium chloride 0.9 % flush10 mL, 10 mL, Intravenous, q12h, 10 mL at 01/12/25 5299 AND sodium chloride 0.9 % flush 10 mL, 10 mL, Intravenous, PRN, Da De MD sodium chloride 0.9 % flush 20 mL, 20 mL, Intravenous, q1h PRN, Camilla Soto APRN, DNP sulfamethoxazole-trimethoprim (Bactrim) 400-80 MG per tablet 1 tablet, 1 tablet, Oral, Daily, Maciel Olson MD, 1 tablet at 01/12/25 0852 tacrolimus (Prograf) capsule 2 mg, 2 mg, Oral, Every Morning (0600), Cheryl Choi MD, 2 mg at 01/13/25 0545 tacrolimus (Prograf) capsule 2 mg, 2 mg, Oral, q PM (1800), Yari Quesada MD, 2 mg at 01/12/25 1716 traZODone (Desyrel) tablet 50 mg, 50 mg, Oral, Nightly, Roger Moody, 50 mg at 01/12/252016 ursodiol (Actigall) capsule 300 mg, 300 mg, Oral, BID, Yari Quesada MD, 300 mg at 01/12/252016 valGANciclovir (Valcyte) tablet 450 mg, 450 mg, Oral, Daily, Maciel Olson MD, 450 mg at 01/12/25 0852 * Care Plan - Andreina Hester RN - 2025 10:26 PM EST Problem: Adult Inpatient Plan of Care Goal: Patient-Specific Goal (Individualized) Outcome: Ongoing, Progressing Flowsheets (Taken 2025 2200) Patient/Family-Specific Goals (Include Timeframe): swelling will continue to decrease overnight Individualized Care Needs: swelling Anxieties, Fears or Concerns: denies Goal: Optimal Comfort and Wellbeing Outcome: Ongoing, Progressing Problem: Fall Injury Risk Goal: Absence of Fall and Fall-Related Injury Outcome: Ongoing, Progressing Problem: Anxiety Signs/Symptoms Goal: Improved Mood Symptoms (Anxiety Signs/Symptoms) Outcome: Ongoing, Progressing Problem: Skin Injury Risk Increased Goal: Skin Health and Integrity Outcome: Ongoing, Progressing * Progress Notes - Elyssa Healy - 2025 3:00 PM EST Physical Therapy Treatment Patient Name: Orly hWite Today's Date: 2025 PT Discharge Recommendations: Acute rehab Equipment Recommended: Defer to facility Subjective Patient agreeable to PT treatment. Participants in Care Family/Caregiver Present: Yes Family/Caregiver: Spouse Dining Room Attendant Cafeteria: Not Applicable Presentation Oxygen Therapy: None (Room air) Lines and Tubes: Intravenous access Pre-Session: Supine, Head of bed elevated, Lines intact Pre-Session Comments: RN agreeable to session. Post-Session: Sitting in chair, RN notified, Lines intact, Call light in reach Post-Session Comments: Patient positioned for comfort with all needs in reach. at bedside. Precautions Medical Precautions: Post-Surgical precautions, Fall precautions Post-Surgical Precautions: Abdominal: no lifting >10# Objective Pain Patient with no complaints of pain. Delirium Screening RASS: Alert and calm Confusion Assessment Method-ICU (CAM-ICU/PCAM-ICU) Feature 3: Altered Level of Consciousness: Negative Therapeutic Activity (20 minutes) Patient participated in the following PT interventions targeting functional strength and endurance in order to promote increased independence with functional mobility. Additional time required for line management, room set-up for safe mobility and positioning at end of session to achieve optimal comfort and pressure relief. Patient's vital signs monitored for signs of intolerance to activity throughout session. Bed Mobility Bed Mobility Interventions: Patient given maximal verbal and tactile cues for logroll technique to reduce strain on abdomen during transition. Patient cued for cross-body reach with right UE for leverage on bedrail followed by bringing BLE off bed surface and utilizing BUE to push self up to sitting. Overall minimal assist required at trunk for completion of activity. Once in sitting, patient requiring CGA for lateral weight-shift and scoot to edge of bed. Bed Mobility Exam: Rolling/Turning Level of [place]: Minimum assist (75% patient effort) Physical/Nonphysical Assist: Verbal Cues, Minimal cues Assistive Device: Bed rails Bed Mobility Exam: Scooting/Bridging Level of [place]: Contact guard (seated scoot to edge of bed) Physical/Nonphysical Assist: Verbal Cues, Minimal cues, Set-up required Assistive Device: Bed rails Bed Mobility Exam: Supine to Sit Level of [place]: Minimum assist (75% patient's effort) Physical/Nonphysical Assist: Verbal Cues, Set-up required, Maximal cues, Nonverbal cues (demo/gestures), HOB elevated Assistive Device: Bed rails Bed Mobility Exam: Sit to Supine Level of [place]: (Not assessed. Patient left up in chair.) Transfers Transfer Interventions: PT provided maximal verbal cues for safe hand placement on RW and sitting surface, pushing up to stand and reaching back to sit, to ensure safe transition. Physical assist provided for balance. Transfer Exam: Sit to stand Level of [place]: Contact guard Physical/Nonphysical Assist: Verbal Cues, Nonverbal cues (demo/gestures), Additional assist utilized for safety Assistive Device: Walker, rolling Transfer Exam: Stand to Sit Level of [place]: Contact guard Physical/Nonphysical Assist: Verbal Cues, Nonverbal cues (demo/gestures), Maximal cues Assistive Device: Walker, rolling Functional Endurance/Strengthening Patient performed the following exercises in order to build functional endurance and challenge balance for strengthening and coordination training. Patient requiring moderate verbal cues for sequencing exercises and for proper form. Patient given seated rest breaks between exercises due to fatigue. 5x sit to stand without BUE support (15.22 seconds) Combination right/left march plus heel raise x10 reps. Patient fatiguing after 5 reps and losing form and sequencing, requiring verbal cuing to correct. Gait Training (10 minutes) Device: Rolling walker Apparatus: Chair follow Assistance: Chair follow, Minimum assistance, Maximum verbal cues, Minimal tactile cues Distance: 50 feet x2 Gait Analysis: Patient demonstrates narrow base of support, decreased stride length, decreased heelstrike, slow anastasiya and forward flexed posture on RW. Patient with downward gaze and tendency to maintain RW anterior of base of support. Gait Training Interventions: PT sized RW appropriately to patient's height prior to gait activity. PT cued patient for widening base of support, safe walker spacing, upward gaze and increasing heel strike as able. Assessment Patient participating well throughout session and was able to demonstrate overall improvements withfunctional strength and endurance as evidenced by ability to progress ambulation distances. Patientdemonstrated deficits in coordination and sequencing mobility tasks today and required verbal cues from skilled PT for safety. Patient continues to be most appropriate for acute rehab at discharge atthis time. Anticipate that the patient would benefit more greatly from acute rehab than other rehabservices for the following reasons: The patient requires intensive and active therapeutic interventions of at least 2 disciplines (PT and OT). The patient will be able to tolerate 3 hours of therapy 5 days/week (or 15 hours over 7 days/week) once medically optimized. The patient's medical and rehab needs cannot be met at a lower level of care such as subacute rehabor home health. PRIOR to this hospitalization, the patient was a community ambulator and was independent with ADLs.CURRENTLY the patient is requiring minimal assist for mobility with inability to ambulate communitydistances. The above reasons indicate that the patient would benefit significantly from intensive rehab, in order to improve functional capacity within a reasonable period. Patient will continue to benefit fromfurther skilled inpatient PT intervention during remainder of hospital stay to address identified impairments and progress towards independence with functional mobility. PT Recommendations Discharge Destination: Acute rehab Discharge Equipment: Defer to facility Plan Continue current PT plan of care. PT Goals PT GOAL DETAILS Goal Established Date Time Frame Goal Status PT Goal 1: Patient will perform supine to/from sitting transfer with SBA from flat bed surface usign log roll technique. 01/05/25 2 weeks PT Goal 2: Patient will perform sit to/from standing transfer with RW and SBA. 01/05/25 2 weeks PT Goal 3: Patient will ambulate at least 400 feet continuously over level surfaces with RW and SBA. 01/05/25 2 weeks PT Goal 4: Patient will ascend/descend 4 steps with unilateral hand rail and SBA in order to accesshome environment safely. 01/05/25 2 weeks PT Goal 5: Patient will be compliant with HEP with set-up as needed from staff/family. 01/05/25 2 weeks Written by Elyssa Healy on 01/12/25 at 3:31 PM. * Anesthesia PACU Signout - Da De MD - 2025 1:30 PM EST Patient: Orly White Anesthesia Type: general Vitals Value Taken Time BP 148/80 01/12/25 13:10 Temp 36.9 ??C (98.4 ??F) 01/12/25 13:03 Pulse 69 01/12/25 13:10 Resp 13 01/12/25 13:10 SpO2 97 % 01/12/25 13:10 Anesthesia PACU Signout Patient location during evaluation: PACU Patient participation: complete - patient participated Level of consciousness: baseline and awake Pain management: adequate (pain score 0-3) Airway patency: natural airway Hydration status: acceptable PONV: none Cardiovascular status: acceptable and hemodynamically stable Respiratory status: acceptable, spontaneous ventilation, unassisted and nonlabored ventilation * Progress Notes - DearMariela RN - 2025 12:47 PM EST spar finisher attended table rounds with MD Beckford and members of Txp team this AM. Plan for ERCP today. Pt not medically cleared for hospital discharge this date. Pt has been referred to [facility] and PM and R is following. * Clinician Note - Reena Simon - 2025 12:15 PM EST Occupational Therapy Attempt Patient Name: Orly White Today's Date: 2025 Patient was attempted to be seen by occupational therapy 2025 for OT Treatment, however patient off the floor. Occupational therapy team will follow- up as schedule permits. Written by Reena Simon on 01/12/25 at 12:15 PM. * Interval H&P Note - Rell Vivas MD - 2025 11:30 AM EST H&P reviewed. The patient was examined and there are no changes to the H&P and the surgicalsite was marked. Will proceed with ERCP. The risks, benefits, potential complications, limitations and alternatives to the procedure were discussed, including but not limited to pain, bloating, bleeding, infection, perforation, clinical deterioration, pancreatitis, aspiration, cardiopulmonary and cerebrovascular events, need for emergency surgery and even . The informed consent was signed by myself and the patient. Source Note - Kimberly Owen DO - 01/11/2025 8:10 PM EST Inpatient consult to Gastroenterology Consult performed by: Kimberly Owen DO Consult ordered by: Jude Gillis MD Inpatient Gastroenterology, Hepatology and Nutrition Initial Consultation Note: Patient: Orly White Date of : 1980 Room: [address] [place], [place] [id number] Reason for consultation: Liver transplant pt with biliary stricture on MRCP Subjective: History of present illness: Mr. Orly White is a 44 y.o. year old male with a PMH of decompensated alcohol related cirrhosis s/p OLT, ascites, HE, SBP, depression, anxiety, GERD, and HTN who presents to [facility] on 01/02 for possible liver transplant. The inpatient gastroenterology, hepatology and nutrition team was asked to see him in consultation for biliary stricture. He is s/p liver transplant on 01/03/2025. Patient noted with up trending bilirubin. US Liver unremarkable with patent flow. MRCP notable for short segment (approximately 1 cm) apparent narrowing in the extrahepatic duct at the suspected anastomosisis likely artifactual given presence of adjacent susceptibility artifact and lack of associated proximal bile duct dilatation. Labs remarkable for ALT 88, AST 31, ALP 121 and T kip 8.5. Review of Systems: 14 point ROS reviewed and negative except as in HPI Past Medical History[1] Surgical History[2] Family History[3] Family history reviewed and non-contributory Social History[4] Allergies[5] Current Medications[6] Objective: Temp: [36.7 ??C (98.1 ??F)-37.3 ??C (99.1 ??F)] 37 ??C (98.6 ??F) Heart Rate: [67-80] 67 Resp: [14-22] 22 BP: (112-179)/(65-80) 112/65 Weight: 105 kg (232 lb 9.4 oz) Body mass index is 27.25 kg/m??. Physical Examination: General Appearance: Awake, alert, oriented x 3, in no apparent distress Head: Normocephalic, atraumatic Eyes: scleral icterus, EOMI. Neck: Neck supple, no adenopathy. Lungs: Lungs clear to auscultation with no wheezing, rales, or rhonchi Heart: Regular rate and rhythm Abdomen: Abdomen soft, non-tender, non distended. Bowel sounds normal. No rebound or guarding. No ascites, no organomegaly. Extremities: No lower extremity edema. Neurologic: Mental status intact. No gross neurologic deficits. Laboratory: CBC WBC 6.42 Hb 8.3 (L) Plt 39 (L) Hct 24.6 (L) INR 1.2 (H) PTT ?? BMP Na 137 Cl 104 BUN 31 (H) Glu 81 K 3.5 (L) Co2 24 Cr 1.36 (H) Mg 1.6 (L) Phos 3.6 LFT AST 31 AlkPhos 121 (H) T Prot 4.4 (L) ALK 88 (H) T Bili 8.5 (H) Alb ?? Imaging: @IMAGES@ === 10/18/24 === CT ABDOMEN W IV CONTRAST - Narrative - CLINICAL INDICATION: Inpatient Liver Transplant Eval TECHNIQUE: Multiple axial CT images were obtained of liver and abdomen with administration of IV contrast, Omnipaque 350, 150 mL. Images were obtained during arterial, portal venous, and delayed phases. Reformatted images in the coronal and sagittal planes were generated from the axial data set to facilitate diagnostic accuracy. Total DLP (Dose-Length Product): 1300.99 mGy.cm. Please note: The reported value represents the total of one or more individual components during the CT acquisition on this date and at this time, andas such, the same value may appear in more than one CT report depending on the interpreting/reporting physicians. COMPARISON: Outside CT September 04, 2024. FINDINGS: Liver, Gallbladder, Biliary Tract: Morphologic changes [...] and portosystemic collaterals. Small left pleural effusion. CRITICAL RESULT: No. COMMUNICATION: Per this written report. Drafted by Milagros Morrell MD on 10/23/2024 7:21 AM Final report signed by Milagros Morrell MD on 10/23/2024 7:36 AM Assessment and Plan: Mr. Orly White is a 44 y.o. year old male with a PMH of decompensated alcohol related cirrhosis s/p OLT, ascites, HE, SBP, depression, anxiety, GERD, and HTN who presents to [facility] on 11/21 for possible liver transplant. The inpatient gastroenterology, hepatology and nutrition team was asked to see him in consultation for biliary stricture. He is s/p liver transplant on 01/03/2025. # Cirrhosis s/p OLT # Hyperbilirubinemia # Concern for anastomotic biliary stricture - He is s/p liver transplant on 01/03/2025. - Labs remarkable for ALT 88, AST 31, ALP 121 and T kip 8.5. - MRCP notable for short segment (approximately 1 cm) apparent narrowing in the extrahepatic duct at the suspected anastomosis is likely artifactual given presence of adjacent susceptibility artifactand lack of associated proximal bile duct dilatation. - Given hyperbilirubinemia and probable stricture on MRCP, will proceed with ERCP for further evaluation RECOMMENDATIONS: - Continue monitoring LFTs - Will tentatively plan for ERCP 01/12 - Continue immunosuppressants Thank you for the opportunity to participate in this patient's care! Will continue to follow along with you. Patient seen by and discussed with Dr. Garcia, gastroenterology, hepatology and nutrition attendingphysician. Kimberly Owen, Gastroenterology and Hepatology, PGY-4 Healthcare Pager: [phone] [1] Past Medical History: Diagnosis Date Anxiety Ascites Cirrhosis (CMS/HCC) Depression Enterocolitis due to Clostridium difficile, not specified as recurrent 11/04/2024 Esophageal varices GERD (gastroesophageal reflux disease) Hepatic encephalopathy (CMS/HCC) Hypertension Patient on waiting list for liver transplant 12/30/2024 SBP (spontaneous bacterial peritonitis) Tobacco use disorder [2] Past Surgical History: Procedure Laterality Date VASECTOMY [3] No family history on file. [4] Social History Tobacco Use Smoking status: Never Passive exposure: Current Smokeless tobacco: Current Types: Chew Substance Use Topics Alcohol use: Not Currently Comment: Quit 2 months ago Drug use: Never [5] Allergies Allergen Reactions Amoxicillin Hives and Rash Childhood allergy [6] Current Facility-Administered Medications: amLODIPine (Norvasc) tablet 5 mg, 5 mg, Oral, Daily, Camilla Soto APRN, DNP, 5 mg at 01/11/25 0826 bisacodyl (Dulcolax) suppository 10 mg, 10 mg, Rectal, Daily, Tg Morales APRN, 10 mg at 01/09/25 0844 buPROPion SR (Wellbutrin SR) 12 hr tablet 150 mg, 150 mg, Oral, BID, Félix Simmons APRN, DNP, 150 mg at 01/11/25 08 carvedilol (Coreg) tablet 25 mg, 25 mg, Oral, BID, Camilla Soto APRN, DNP, 25 mg at 01/11/25 08 ergocalciferol (Vitamin D-2) capsule 50,000 Units, 50,000 Units, Oral, Weekly, Maciel Olson MD, 50,000 Units at 01/09/25 0844 escitalopram (Lexapro) tablet 10 mg, 10 mg, Oral, Daily, Félix Simmons APRN, DNP, 10 mg at 01/11/25 08 ferrous sulfate EC tablet 324 mg, 324 mg, Oral, Daily with breakfast, Félix Simmons APRN, DNP, 324 mg at 01/11/25825 fluconazole (Diflucan) tablet 200 mg, 200 mg, Oral, Daily, Maciel Olson MD, 200 mg at 01/11/25825 [Held by provider] heparin (porcine) injection 5,000 Units, 5,000 Units, Subcutaneous, BID, Félix Simmons APRN, DNP, 5,000 Units at 01/08/25 205 hydrALAZINE (Apresoline) injection 10 mg, 10 mg, Intravenous, q1h PRN, 10 mg at 01/03/25 1708 OR hydrALAZINE (Apresoline) injection 20 mg, 20 mg, Intravenous, q1h PRN, Camilla Soto APRN, DNP, 20 mg at 01/06/25 0725 hydrOXYzine HCl (Atarax) tablet 10 mg, 10 mg, Oral, q6h PRN, Yari Quesada MD, 10 mg at 01/11/25 1845 insulin lispro (Admelog) 100 units/mL injection - Correction - Standard Dose, 0- 5 Units, Subcutaneous, TID with meals, Yari Quesada MD insulin lispro (Admelog) injection - Correction - Nighttime Dose, 0-3 Units, Subcutaneous, Twice atnight, Yari Quesada MD labetalol (Normodyne,Trandate) injection 10 mg, 10 mg, Intravenous, q1h PRN, 10 mg at 01/04/252008OR labetalol (Normodyne,Trandate) injection 20 mg, 20 mg, Intravenous, q1h PRN, Camilla Soto APRN, DNP, 20 mg at 01/07/251918 methocarbamol (Robaxin) tablet 500 mg, 500 mg, Oral, 4x daily, Cheryl Choi MD, 500 mg at 01/11/251844 mupirocin (Bactroban) 2 % ointment 1 Application, 1 Application, Each Nostril, BID, Damián Simmons MD, 1 Application at 01/11/25825 mycophenolate (Cellcept) capsule 500 mg, 500 mg, Oral, BID, Yari Quesada MD ondansetron (Zofran) injection 4 mg, 4 mg, Intravenous, q6h PRN, Negro Cr MD, 4 mg at 01/04/251721 oxyCODONE (Roxicodone) immediate release tablet 5 mg, 5 mg, Oral, q4h PRN, 5 mg at 01/11/251844 OR oxyCODONE (Roxicodone) immediate release tablet 10 mg, 10 mg, Oral, q4h PRN, Cheryl Choi MD, 10 mg at 01/11/25825 pantoprazole (Protonix) EC tablet 40 mg, 40 mg, Oral, Daily, Camilla Soto APRN, DNP, 40 mg at 01/11/25825 piperacillin-tazobactam (Zosyn) 4.5 g in sodium chloride 0.9% 100 mL IVPB (vial adapter required), 4.5 g, Intravenous, q6h, Negro Cr MD, Last Rate: 36.7 mL/hr at 01/11/251844, 4.5 g at 01/11/251844 polyethylene glycol (Miralax) packet 17 g, 17 g, Oral, Daily, Tg Morales APRN, 17 g at 01/10/25926 predniSONE (Deltasone) tablet 5 mg, 5 mg, Oral, Daily with breakfast, Negro Cr MD, 5 mg at 01/11/25 0826 senna-docusate (Lauren-Colace) 8.6-50 MG per tablet 2 tablet, 2 tablet, Oral, BID, Tg Moraels, SEO ASSISTANT, 2 tablet at 01/11/25 0826 sodium chloride 0.9 % flush 10 mL, 10 mL, Intravenous, q12h, Camilla Soto, SEO ASSISTANT, DNP, 10 mL at 01/11/25 0452 sodium chloride 0.9 % flush 10 mL, 10 mL, Intravenous, q1h PRN, Camilla Soot, SEO ASSISTANT, DNP sodium chloride 0.9 % flush 20 mL, 20 mL, Intravenous, q1h PRN, Camilla Soto, TITA, DNP sulfamethoxazole-trimethoprim (Bactrim) 400-80 MG per tablet 1 tablet, 1 tablet, Oral, Daily, Maciel Olson MD, 1 tablet at 01/11/25 08 tacrolimus (Prograf) capsule 2 mg, 2 mg, Oral, Every Morning (0600), Cheryl Choi MD, 2 mg at 01/11/25 0537 tacrolimus (Prograf) capsule 2 mg, 2 mg, Oral, q PM (1800), Yari Quesada MD, 2 mg at 01/11/25 1845 traZODone (Desyrel) tablet 50 mg, 50 mg, Oral, Nightly, Roger Moody, 50 mg at 01/10/25 2221 ursodiol (Actigall) capsule 300 mg, 300 mg, Oral, BID, Yari Quesada MD, 300 mg at 01/11/25 0826 valGANciclovir (Valcyte) tablet 450 mg, 450 mg, Oral, Daily, Maciel Olson MD, 450 mg at 01/11/25825 Cosigned by Parmjit Garcia MD at 2025 7:33 AM EST LE * Anuj Lucas, Imelda Cheema RN - 2025 10:24 AM EST Images from the original note were not included. [address] Endoscopy Unit: Caring for Yourself after an Endoscopic Retrograde Cholangiopancreatography (ERCP) What precautions do I need to take after my procedure? You will get a medicine that makes you sleep during treatment. It may affect you for the next 24 hours. ? Do not drive or go home alone. Someone must be with you until you get home. ? For 24 hours, do not make legal decisions, drive, or use dangerous equipment. ? You may continue taking your home medicines unless your doctor tells you otherwise. When can I eat or drink? You may eat as you normally would, unless otherwise told by your doctor. Start with a small amount of bland foods. Then move on to your normal foods as tolerated. Spicy or greasy foods may increase your chance of nausea due to the medicines you received during the procedure. How active can I be? You should move around as you are able. Do your normal activities if you feel you can. Sexual activity is fine unless your doctor tells you otherwise. How do I find out my biopsy results? If you had a biopsy, it may take 7-10 days for biopsy results. These results will be available in the patient portal, [employer], or you can call the doctor who ordered your procedure. When should I call the doctor? Call 911 right away or go to the nearest emergency department if you have any of these: ? Difficulty breathing ? Severe pain in the throat ? Severe pain in the chest or belly ? Vomiting that does not go away ? Fever of 101??F or higher ? Yellow skin or eyes ? Blood in your stool ? Redness or tenderness of the IV site that lasts longer than 48 hours ? Any other worrisome symptoms These may be related to a complication and need medical attention. If you do not tell your doctor, the problem may get worse. Our contact information: For the Endoscopy Provider, call and ask for the Endoscopy Fellow on-call. LE * Anuj Lucas, Imelda Cheema RN - 2025 10:24 AM EST Images from the original note were not included. Anesthesia: General Anesthesia You?re due to have surgery. During surgery, you?ll be given medicine called anesthesia or anesthetic. This will keep you comfortable and pain-free. Your anesthesia provider will use general anesthesia . You are watched continuously during your procedure by your anesthesia provider. What is general anesthesia? General anesthesia puts you into a state like deep sleep. It goes into the bloodstream (IV anesthetics), into the lungs (gas anesthetics),or both. You feel nothing during the procedure. You won't remember it either. During the procedure, the anesthesia provider monitors you continuously. They trackyour heart rate and rhythm, blood pressure, breathing, and blood oxygen. ? IV anesthetics. IV anesthetics are given through an IV (intravenous) line in your arm. They?re often given first. This is so you're asleep before a gas anesthetic is started. Some kinds of IV anesthetics ease pain. Others relax you. Your healthcare provider will decide which kind is best in your case. ? Gas anesthetics. Gas anesthetics are breathed into the lungs. They're often used to keep you asleep. They can be given through a face mask. Or they can be given through a tube placed in your voice box (larynx) or breathing tube (trachea). o Face mask. Your anesthesia provider will most likely place the face mask over your nose and mouthwhile you?re still awake. You?ll breathe oxygen through the mask as your IV anesthetic is started. Gas anesthetic may be added through the mask. o Tube in the larynx or trachea. The tube will be inserted into your throat after you?re asleep. Anesthesia tools and medicines You will likely have: ? IV anesthetics. These are put into an IV line into your bloodstream. ? Gas anesthetics. You breathe these anesthetics into your lungs. Then they pass into your bloodstream. ? Pulse oximeter. This is a small clip that's attached to the end of your finger. It measures your blood oxygen level. ? Electrocardiography leads (electrodes). These are small sticky pads that are placed on your chest. They record your heart rate and rhythm. ? Blood pressure cuff. This reads your blood pressure. Risks and possible complications General anesthesia has some risks. These include: ? Breathing problems ? Upset stomach (nausea) and vomiting ? Sore throat or hoarseness (usually temporary) ? Allergic reaction to the anesthetic ? Irregular heartbeat (rare) ? Cardiac arrest (rare) Anesthesia safety ? Follow any directions you're given for not eating or drinking before your procedure. ? Tell your healthcare provider what medicines you take. This includes prescription and [id number] medicines. It also includes vitamins, herbs, and other supplements. You'll be asked when thosewere last taken. ? Have a trusted adult drive you home after the procedure. ? For the first 24 hours after your surgery: o Don't drive or use heavy equipment. o Don't make important decisions or sign legal documents. If important decisions or signing legal documents is necessary during the first 24 hours after surgery, have a trusted family member or spouse act on your behalf. o Don't drink alcohol. o Have a responsible adult stay with you. They can watch for problems and help keep you safe. Last Reviewed Date: 2023 00:00:00 ?? [id number] [employer]. All rights reserved. This information is not intended as a substitute for professional medical care. Always follow your healthcare professional's instructions. * Consults - Yari Reilly, FLASH - 2025 10:21 AM EST Adult Nutrition Evaluation Note Orly White 45 y.o. male CSN: [id number] Room/Bed 213/213A Nutrition evaluation type: follow-up Reason for evaluation: Index Admission: Post-transplant discharge phase Hospital course: 44y/oM w/ hx decompensated EtOH related cirrhosis now s/p OLT 01/03. Increasing tbili; MRCP w/ biliary stricture. ERCP today (01/12). Past medical/ surgical history: Past Medical History[1] Surgical History[2] Social history: Additional comments: Pt off the floor in Endo during RD attempted visit today. Noted w/ improved POintake since last RD visit on 01/07 (now 75-100% at recent meals). Vitals and Basic Assessment: BP: (!) 140/76 Temp: 36.6 ??C (97.9 ??F) Invasive Ventilator Initiated (ETT/Trach Only): Yes Oxygen Therapy: None (Room air) O2 Delivery Method: Nasal cannula Juanpablo Coma Scale Score: 15 Rosendo Scale Score: 20 Danyel/Cubbin Pressure Risk Score: 42 Most Recent BM Date: 01/08/25 GI Symptoms: None Edema: Generalized, Right lower extremity, Left lower extremity Allergies: Allergies[3] Medications: Current Scheduled Medications[4] Meds were reviewed: Yes Labs: Labs in last 18 hours CBC WBC 5.23 Hb 8.1 (L) Plt 45 (L) Hct 24.3 (L) ANC ?? INR 1.2 (H), PTT ??, Anti-Xa ?? BMP Na 133 (L) Cl 102 BUN 26 (H) Glu 76 K 3.6 Co2 23 Cr 1.26 (H) Ca 7.6 (L) iCa ?? Mg 2.2, Phos 2.9 Lactate ?? LFT AST 22 AlkPhos 107 T Prot 4.3 (L) ALK 70 (H) Bili 10.4 (H) Alb ?? D.Bili ?? Lab Results Component Value Date HGBA1C <4.0 10/21/2024 Anthropometrics: Height: 188 cm (6' 2.02 ) Weight: 96.4 kg (212 lb 8.4 oz) BMI (Calculated): 27.27 Weight Evaluation: Overweight (BMI 25-29.9) [place] Body Weight (kg): 86.4 Percent [place] Body Weight: 112 Adjusted Body Weight (kg): (-) Recent weights this admission: Date/Time Weight 01/12/25 0513 96.4 kg (212 lb 8.4 oz) 01/11/25 0607 96.3 kg (212 lb 4.9 oz) 01/10/25 0529 97.2 kg (214 lb 4.6 oz) 01/09/25 0610 101 kg (223 lb 12.3 oz) 01/08/25 0600 106 kg (233 lb 0.4 oz) 01/07/25 0601 109 kg (240 lb 1.3 oz) 01/06/25 0535 112 kg (246 lb 14.6 oz) Wt Readings from Last 10 Encounters: 01/12/25 96.4 kg (212 lb 8.4 oz) 12/30/24 108 kg (237 lb 3.4 oz) 12/18/24 108 kg (238 lb 1.6 oz) 12/17/24 110 kg (241 lb 10 oz) 12/03/24 98.8 kg (217 lb 13 oz) 11/25/24 99 kg (218 lb 4.1 oz) 11/11/24 100 kg (220 lb 7.4 oz) 11/04/24 110 kg (242 lb 4.6 oz) 11/04/24 109 kg (240 lb 4.8 oz) 10/20/24 117 kg (257 lb 15 oz) Estimated Needs: Kcal/ K-35 Kcal Provided: 2934-7215 Kcal Needs Based On: Current weight Gm Protein/ Kg : 1.5-2 Protein Provided: 145-193 Protein Needs Based On: Current weight Metabolic Cart Study Results: Current Nutrition Intake: Diet Supplements: Boost Glucose Control Diet Order: NPO Diet Texture: (-) Electrolyte Restriction: (-) Other Restrictions: (Solid Organ Transplant) Percent Meals Eaten (%): 75-100% x 6 meals Diet Experience and Nutrition History: Diet Education Provided: Yes (Post-transplant) Pertinent home medications: Pent[employer]al needs: Nutrition Focused Physical Exam: Physical exam performed on (date): 01/07/2025 Temples (muscles): Mild Clavicle (muscle): Mild Shoulder (muscle): None Interosseous (muscle): None Orbital (fat): None Triceps (fat): Mild Energy Intake: <75% EER x >1 month Assessment of Malnutrition: Malnutrition Identified: Yes Meets Criteria For: Moderate malnutrition In Context Of: Chronic illness/ injury Based On: Mild muscle mass loss, Moderately reduced energy intake Present on Admission: Yes Nutrition Problem: Inadequate oral intake related to current clinical condition as evidenced by NPO. Status of Nutrition Diagnosis: Resolved Increased nutrient needs kcal, protein related to cirrhosis s/p OLT as evidenced by increased metabolic demand associated w/ healing. Status of Nutrition Diagnosis: Ongoing Nutrition Interventions and Recommendations: - Resume Regular, Solid Organ Transplant diet once ERCP complete - Continue Boost Glucose Control TID to supplement Nutrition Monitoring and Goals: Pt will tolerate PO diet >=75% on average (met, continue) Acuity Level: [address], LD [1] Past Medical History: Diagnosis Date Anxiety Ascites Cirrhosis (CMS/HCC) Depression Enterocolitis due to Clostridium difficile, not specified as recurrent 11/04/2024 Esophageal varices GERD (gastroesophageal reflux disease) Hepatic encephalopathy (CMS/HCC) Hypertension Patient on waiting list for liver transplant 12/30/2024 SBP (spontaneous bacterial peritonitis) Tobacco use disorder [2] Past Surgical History: Procedure Laterality Date VASECTOMY [3] Allergies Allergen Reactions Amoxicillin Hives and Rash Childhood allergy [4] amLODIPine, 5 mg, Oral, Daily bisacodyl, 10 mg, Rectal, Daily buPROPion SR, 150 mg, Oral, BID carvedilol, 25 mg, Oral, BID ergocalciferol, 50,000 Units, Oral, Weekly escitalopram, 10 mg, Oral, Daily ferrous sulfate, 324 mg, Oral, Daily with breakfast fluconazole, 200 mg, Oral, Daily [Held by provider] heparin (porcine), 5,000 Units, Subcutaneous, BID insulin lispro, 0-5 Units, Subcutaneous, TID with meals insulin lispro, 0-3 Units, Subcutaneous, Twice at night lactated Ringer's, 100 mL/hr, Intravenous, Once lactated Ringer's, 100 mL/hr, Intravenous, Once methocarbamol, 500 mg, Oral, 4x daily mycophenolate, 500 mg, Oral, BID pantoprazole, 40 mg, Oral, Daily piperacillin-tazobactam, 4.5 g, Intravenous, q6h polyethylene glycol, 17 g, Oral, Daily predniSONE, 5 mg, Oral, Daily with breakfast senna-docusate, 2 tablet, Oral, BID Insert peripheral IV, , , Once AND Saline lock IV, , , Once AND sodium chloride, 10 mL, Intravenous, q12h AND sodium chloride, 10 mL, Intravenous, PRN Insert peripheral IV, , , Once AND Saline lock IV, , , Once AND sodium chloride, 10 mL, Intravenous, q12h AND sodium chloride, 10 mL, Intravenous, PRN sodium chloride, 10 mL, Intravenous, q12h sulfamethoxazole-trimethoprim, 1 tablet, Oral, Daily tacrolimus, 2 mg, Oral, q PM (1800) tacrolimus, 2 mg, Oral, Every Morning (0600) traZODone, 50 mg, Oral, Nightly ursodiol, 300 mg, Oral, BID valGANciclovir, 450 mg, Oral, Daily * Clinician Note - Elyssa Healy - 2025 10:00 AM EST Physical Therapy Attempt Patient Name: Orly White Today's Date: 2025 Patient was attempted to be seen by physical therapy 2025 for PT Treatment however patient offthe floor. Physical therapy team will follow-up when patient is available. Written by Elyssa Healy on 01/12/25 at 1:38 PM. * Progress Notes - Velasquez Campos MD - 2025 8:57 AM EST Abdominal Transplant Surgery Progress Note Events of past 24 hours: Orly White is a 44yo male with a PMH of decompensated alcohol related cirrhosis, ascites, HE, SBP, depression, anxiety, GERD, and HTN who presents to [facility] on 01/02 for possible liver transplant. 01/03: OLT Interval: POD9. NAEON. MRCP with evidence of biliary stricture. Liver U/S ok. AF, HDS, RA. Hgb and WBC S. Cr stable 1.26. LFT stable, Tbili increase 10.4 (8.5). UOP 1.4 L. Edited by: Velasquez Campos MD at 2025 0856 Review of Systems: 14-point ROS negative except as above in HPI. Last Recorded Vitals Blood pressure (!) 161/81, pulse 71, temperature 37.3 ??C (99.1 ??F), temperature source Oral, resp. rate 20, height 1.88 m (6' 2.02 ), weight 96.4 kg (212 lb 8.4 oz), SpO2 96%. Output by Drain (mL) 01/10/25 0700 - 01/10/25 1859 01/10/25 1900 - 01/11/25 0659 01/11/25 0700 - 01/11/25 1859 01/11/25 1900 - 01/12/25 0659 01/12/25 0700 - 01/12/25 0858 Patient has no LDAs of requested type attached. Physical Exam GENERAL: EYES: PERRL HENT: No lesions in anterior nares; no lesions in oropharynx, head atraumatic and normocephalic NECK: Supple. No thyromegaly or adenopathy. No JVD noted. The trachea appears midline. RESP: Symmetric expansion; no retractions. CARD: RRR Extremities: no cyanosis or clubbing GI: No organomegaly or masses. Nontender nondistended. SKIN: No rash, sores, lesions or subcutaneous nodules. NEURO: GCS 15 Results: Labs in last 18 hours Labs are independently reviewed daily. CBC WBC 5.23 Hb 8.1 (L) Plt 45 (L) Hct 24.3 (L) ANC ?? INR 1.2 (H), PTT ??, Anti-Xa ?? BMP Na 133 (L) Cl 102 BUN 26 (H) Glu 76 K 3.6 Co2 23 Cr 1.26 (H) Ca 7.6 (L) iCa ?? Mg 2.2, Phos 2.9 Lactate ?? LFT AST 22 AlkPhos 107 T Prot 4.3 (L) ALK 70 (H) Bili 10.4 (H) Alb ?? D.Bili ?? Coags: INR Date Value Ref Range Status 2025 1.2 (H) 0.9 - 1.1 Final Prothrombin Time Date Value Ref Range Status 2025 15.1 (H) 12.0 - 14.3 sec Final aPTT Date Value Ref Range Status 01/03/2025 48 (H) 25 - 35 sec Final Fibrinogen, Quantitative (Clottable) Date Value Ref Range Status 01/03/2025 134 (L) 208 - 459 mg/dL Final ABG: pH, Mixed Venous Date Value Ref Range Status 01/03/2025 7.31 (L) 7.32 - 7.43 Final pCO2, Mixed Venous Date Value Ref Range Status 01/03/2025 42 40 - 55 mmHg Final pO2, Mixed Venous Date Value Ref Range Status 01/03/2025 53 (H) 25 - 40 mmHg Final Base Excess, Mixed Venous Date Value Ref Range Status 01/03/2025 -5.1 (L) -2.0 - 3.0 mmol/L Final Bicarbonate, Calculated, Arterial Date Value Ref Range Status 01/03/2025 21 (L) 22 - 26 mmol/L Final Body Temperature Date Value Ref Range Status 01/03/2025 37.0 Celsius Final VBG: No results found for: BDVEN , BEVEN , JBW1GHR , TXZ9EHO , PHVEN , PO2VEN , C4BSXSYT , BFK2WAKYJIH , PHVENTEMP Lactate: Lactate, Arterial, Whole Blood Date Value Ref Range Status 01/03/2025 1.7 (H) 0.5 - 1.6 mmol/L Final Medications Current Scheduled Medications[1] Current Continuous Medications[2] Current PRN Medications[3] Imaging (past 24h): I personally visualized and interpreted all of the imaging studies below and I agree with formal interpretation. Assessment and Plan Medical Problems Problem List * (Principal) Decompensation of cirrhosis of liver (CMS/HCC) Tobacco use disorder, continuous Insomnia Anemia SBP (spontaneous bacterial peritonitis) Essential (primary) hypertension GERD (gastroesophageal reflux disease) Anxiety Thrombocytopenia (CMS/HCC) Hypotension Elevated INR Coagulopathy NINA (acute kidney injury) Abdominal distension [ ] Plt downtrending > subqH held [ ] if he spikes fever, call GI about emergent ERCP [ ] NPO, DVT ppx held for ERCP for biliary stricture Orly White is a 44yo male with a PMH of decompensated alcohol related cirrhosis, ascites, HE, SBP, depression, anxiety, GERD, and HTN who presents to [facility] on 01/02 for possible liver transplant. Now s/p liver transplant on 01/03. Extubated post-op 01/03 to ND, now on RA. HDS off pressors. Abdominal exam is stable. Tbili has been increasing significantly, US Liver unremarkable with patent flow, MRCP consistent with biliary stricture. NINA improving. We will continue ursodiol and zosyn. GI to perform ERCP today. Neuro: GCS 15. MMPC - home escitalopram, wellbutrin, trazodone CV: HDS - on home coreg 25mg BID Pulm: RA, pulm hygiene GI: Regular diet - LFTs, Tbili increasing. Starting zosyn empirically - ursodiol 300 BID - PPI BID : UOP 1.4L; Cr down-trending ID: AF, WBC S - fluconazole - zosyn Heme: Hgb S, plts 45 (39) - home ferrous sulfate Immunosuppression: cellcept 500 mg BID, pred 5, fk 2/2 Diet: Reg. NPO today for ERCP GI reg: PPI, miralax, doc-senna LTD: PIV x2, DVT ppx: SCDs, SQH BID held, asa Consults: PM&R PT/OT: 01/08: acute rehab Dispo: acute rehab Edited by: Velasquez Campos MD at 2025 0857 Velasquez Campos MD PGY-1 General Surgery 2025 [1] amLODIPine, 5 mg, Oral, Daily bisacodyl, 10 mg, Rectal, Daily buPROPion SR, 150 mg, Oral, BID carvedilol, 25 mg, Oral, BID ergocalciferol, 50,000 Units, Oral, Weekly escitalopram, 10 mg, Oral, Daily ferrous sulfate, 324 mg, Oral, Daily with breakfast fluconazole, 200 mg, Oral, Daily [Held by provider] heparin (porcine), 5,000 Units, Subcutaneous, BID insulin lispro, 0-5 Units, Subcutaneous, TID with meals insulin lispro, 0-3 Units, Subcutaneous, Twice at night methocarbamol, 500 mg, Oral, 4x daily mycophenolate, 500 mg, Oral, BID pantoprazole, 40 mg, Oral, Daily piperacillin-tazobactam, 4.5 g, Intravenous, q6h polyethylene glycol, 17 g, Oral, Daily predniSONE, 5 mg, Oral, Daily with breakfast senna-docusate, 2 tablet, Oral, BID sodium chloride, 10 mL, Intravenous, q12h sulfamethoxazole-trimethoprim, 1 tablet, Oral, Daily tacrolimus, 2 mg, Oral, Every Morning (0600) tacrolimus, 2 mg, Oral, q PM (1800) traZODone, 50 mg, Oral, Nightly ursodiol, 300 mg, Oral, BID valGANciclovir, 450 mg, Oral, Daily [2] [3] PRN medications: glucose OR dextrose 10 % OR dextrose 10 % OR glucagon (human recombinant), hydrALAZINE OR hydrALAZINE, hydrOXYzine HCl, labetalol OR labetalol, ondansetron, oxyCODONE OR oxyCODONE, sodium chloride, sodium chloride Cosigned by Satnam Beckford MD at 2025 10:35 AM EST Associated attestation - Satnam Beckford MD - 2025 10:35 AM EST I saw and evaluated the patient with the resident/fellow. I discussed the case with the resident/fellow and agree with the findings and plan as documented. S/p OLT on 01/03. Complicated by acute blood loss anemia requiring tx post op. Slow uptrend in bili. 24hrs: no events overnight Afebrile,vss On ra Npo On zosyn. ERCP today H/h stable No leukocytosis Hold ASA/SQH for procedure FK/Pred/mmf 500mg BID Immunosuppression medication requires regular monitoring to ensure that the patient is not experiencing any adverse effects as a result for the therapeutic agent. I have therefore, managed the patient's immunosuppression medication listed in this note, addressed any toxic side effects, and adjustedlevels appropriately. Continue inpatient care Satnam Beckford MD * Care Plan - Daylin Mckeon RN - 2025 12:54 AM EST Problem: Adult Inpatient Plan of Care Goal: Plan of Care Review Outcome: Ongoing, Progressing Flowsheets (Taken 01/12/202545) Progress: improving Outcome Evaluation: pt awaits placement Plan of Care Reviewed With: patient Goal: Patient-Specific Goal (Individualized) Outcome: Ongoing, Progressing Flowsheets (Taken 01/11/20251999) Patient/Family-Specific Goals (Include Timeframe): pt will be safe throughout the shift Individualized Care Needs: SAFETY Anxieties, Fears or Concerns: SAFETY Goal: Absence of Hospital-Acquired Illness or Injury Outcome: Ongoing, Progressing Intervention: Identify and Manage Fall Risk Flowsheets (Taken 01/12/202545) Safety Promotion/Fall Prevention: activity supervised fall prevention program maintained Intervention: Prevent Skin Injury Flowsheets (Taken 01/12/202545) Body Position: turned Skin Protection: incontinence pads utilized Intervention: Prevent and Manage VTE (Venous Thromboembolism) Risk Flowsheets (Taken 01/12/202545) VTE Prevention/Management: medication education provided Intervention: Prevent Infection Flowsheets (Taken 01/12/202545) Infection Prevention: hand hygiene promoted Goal: Optimal Comfort and Wellbeing Outcome: Ongoing, Progressing Intervention: Provide Person-Centered Care Flowsheets (Taken 01/12/202545) Trust Relationship/Rapport: care explained questions answered questions encouraged Problem: Fall Injury Risk Goal: Absence of Fall and Fall-Related Injury Outcome: Ongoing, Progressing Intervention: Identify and Manage Contributors Flowsheets (Taken 01/12/202545) Self-Care Promotion: independence encouraged Intervention: Promote Injury-Free Environment Flowsheets (Taken 01/12/202545) Safety Promotion/Fall Prevention: activity supervised fall prevention program maintained Problem: Anxiety Signs/Symptoms Goal: Optimized Energy Level (Anxiety Signs/Symptoms) Outcome: Ongoing, Progressing Intervention: Optimize Energy Level Flowsheets (Taken 01/12/202545) Activity (Behavioral Health): activity encouraged Goal: Optimized Cognitive Function (Anxiety Signs/Symptoms) Outcome: Ongoing, Progressing Intervention: Support and Promote Cognitive Ability Flowsheets (Taken 01/12/202545) Communication Support Strategies: active listening utilized Goal: Improved Mood Symptoms (Anxiety Signs/Symptoms) Outcome: Ongoing, Progressing Intervention: Optimize Emotion and Mood Flowsheets (Taken 01/12/202545) Supportive Measures: active listening utilized Goal: Improved Sleep (Anxiety Signs/Symptoms) Outcome: Ongoing, Progressing Intervention: Promote Healthy Sleep Hygiene Flowsheets (Taken 01/12/202545) Sleep Hygiene Promotion: awakenings minimized Goal: Enhanced Social, Occupational or Functional Skills (Anxiety Signs/Symptoms) Outcome: Ongoing, Progressing Intervention: Promote Social, Occupational and Functional Ability Flowsheets (Taken 01/12/202545) Trust Relationship/Rapport: care explained questions answered questions encouraged Goal: Improved Somatic Symptoms (Anxiety Signs/Symptoms) Outcome: Ongoing, Progressing Problem: Functional Deficit Goal: Improved Balance and Postural Control Outcome: Ongoing, Progressing Intervention: Optimize Balance and Safe Activity Flowsheets (Taken 01/12/202545) Safety Promotion/Fall Prevention: activity supervised fall prevention program maintained Self-Care Promotion: independence encouraged Goal: Optimal Cognitive Function Outcome: Ongoing, Progressing Intervention: Optimize Cognitive Function Flowsheets (Taken 01/12/202545) Self-Care Promotion: independence encouraged Goal: Optimal Coordination Outcome: Ongoing, Progressing Intervention: Optimize Motor Coordination and Function Flowsheets (Taken 01/12/202545) Self-Care Promotion: independence encouraged Goal: Improved Muscle Strength Outcome: Ongoing, Progressing Intervention: Optimize Muscle Strength Flowsheets (Taken 01/12/202545) Self-Care Promotion: independence encouraged Goal: Improved Muscle Tone Outcome: Ongoing, Progressing Goal: Optimal Range of Motion Outcome: Ongoing, Progressing Intervention: Maintain Functional Joint Range Position Flowsheets (Taken 01/11/2025 0800 by oRsibel Delvalle RN) Range of Motion: active ROM (range of motion) encouraged Goal: Compensation for Sensory Deficit Outcome: Ongoing, Progressing Intervention: Optimize Sensory Function Flowsheets (Taken 01/12/202545) Skin Protection: incontinence pads utilized Problem: Skin Injury Risk Increased Goal: Skin Health and Integrity Outcome: Ongoing, Progressing Intervention: Optimize Skin Protection Flowsheets (Taken 01/12/202545) Skin Protection: incontinence pads utilized Problem: Infection Goal: Absence of Infection Signs and Symptoms Outcome: Ongoing, * Consults - Kimberly Owen DO - 01/11/2025 8:10 PM ESTAssociated Order(s): Inpatient consult to Gastroenterology Inpatient consult to Gastroenterology Consult performed by: Kimberly Owen DO Consult ordered by: Jude Gillis MD Inpatient Gastroenterology, Hepatology and Nutrition Initial Consultation Note: Patient: Orly White Date of : 1980 Room: 213/213A Reason for consultation: Liver transplant pt with biliary stricture on MRCP Subjective: History of present illness: Mr. Orly White is a 44 y.o. year old male with a PMH of decompensated alcohol related cirrhosis s/p OLT, ascites, HE, SBP, depression, anxiety, GERD, and HTN who presents to [facility] on 01/02 for possible liver transplant. The inpatient gastroenterology, hepatology and nutrition team was asked to see him in consultation for biliary stricture. He is s/p liver transplant on 01/03/2025. Patient noted with up trending bilirubin. US Liver unremarkable with patent flow. MRCP notable for short segment (approximately 1 cm) apparent narrowing in the extrahepatic duct at the suspected anastomosisis likely artifactual given presence of adjacent susceptibility artifact and lack of associated proximal bile duct dilatation. Labs remarkable for ALT 88, AST 31, ALP 121 and T kip 8.5. Review of Systems: 14 point ROS reviewed and negative except as in HPI Past Medical History[1] Surgical History[2] Family History[3] Family history reviewed and non-contributory Social History[4] Allergies[5] Current Medications[6] Objective: Temp: [36.7 ??C (98.1 ??F)-37.3 ??C (99.1 ??F)] 37 ??C (98.6 ??F) Heart Rate: [67-80] 67 Resp: [14-] 22 BP: (112-179)/(65-80) 112/65 Weight: 105 kg (232 lb 9.4 oz) Body mass index is 27.25 kg/m??. Physical Examination: General Appearance: Awake, alert, oriented x 3, in no apparent distress Head: Normocephalic, atraumatic Eyes: scleral icterus, EOMI. Neck: Neck supple, no adenopathy. Lungs: Lungs clear to auscultation with no wheezing, rales, or rhonchi Heart: Regular rate and rhythm Abdomen: Abdomen soft, non-tender, non distended. Bowel sounds normal. No rebound or guarding. No ascites, no organomegaly. Extremities: No lower extremity edema. Neurologic: Mental status intact. No gross neurologic deficits. Laboratory: CBC WBC 6.42 Hb 8.3 (L) Plt 39 (L) Hct 24.6 (L) INR 1.2 (H) PTT ?? BMP Na 137 Cl 104 BUN 31 (H) Glu 81 K 3.5 (L) Co2 24 Cr 1.36 (H) Mg 1.6 (L) Phos 3.6 LFT AST 31 AlkPhos 121 (H) T Prot 4.4 (L) ALK 88 (H) T Bili 8.5 (H) Alb ?? Imaging: @IMAGES@ === 10/18/24 === CT ABDOMEN W IV CONTRAST - Narrative - CLINICAL INDICATION: Inpatient Liver Transplant Eval TECHNIQUE: Multiple axial CT images were obtained of liver and abdomen with administration of IV contrast, Omnipaque 350, 150 mL. Images were obtained during arterial, portal venous, and delayed phases. Reformatted images in the coronal and sagittal planes were generated from the axial data set to facilitate diagnostic accuracy. Total DLP (Dose-Length Product): 1300.99 mGy.cm. Please note: The reported value represents the total of one or more individual components during the CT acquisition on this date and at this time, andas such, the same value may appear in more than one CT report depending on the interpreting/reporting physicians. COMPARISON: Outside CT September 04, 2024. FINDINGS: Liver, Gallbladder, Biliary Tract: Morphologic changes [...] and portosystemic collaterals. Small left pleural effusion. CRITICAL RESULT: No. COMMUNICATION: Per this written report. Drafted by Milagros Morrell MD on 10/23/2024 7:21 AM Final report signed by Milagros Morrell MD on 10/23/2024 7:36 AM Assessment and Plan: Mr. Orly White is a 44 y.o. year old male with a PMH of decompensated alcohol related cirrhosis s/p OLT, ascites, HE, SBP, depression, anxiety, GERD, and HTN who presents to [facility] on 01/02 for possible liver transplant. The inpatient gastroenterology, hepatology and nutrition team was asked to see him in consultation for biliary stricture. He is s/p liver transplant on 01/03/2025. # Cirrhosis s/p OLT # Hyperbilirubinemia # Concern for anastomotic biliary stricture - He is s/p liver transplant on 01/03/2025. - Labs remarkable for ALT 88, AST 31, ALP 121 and T kip 8.5. - MRCP notable for short segment (approximately 1 cm) apparent narrowing in the extrahepatic duct at the suspected anastomosis is likely artifactual given presence of adjacent susceptibility artifactand lack of associated proximal bile duct dilatation. - Given hyperbilirubinemia and probable stricture on MRCP, will proceed with ERCP for further evaluation RECOMMENDATIONS: - Continue monitoring LFTs - Will tentatively plan for ERCP 01/12 - Continue immunosuppressants Thank you for the opportunity to participate in this patient's care! Will continue to follow along with you. Patient seen by and discussed with Dr. Garcia, gastroenterology, hepatology and nutrition attendingphysician. Kimberly Owen DO Gastroenterology and Hepatology, PGY-4 Healthcare Pager: [phone] [1] Past Medical History: Diagnosis Date Anxiety Ascites Cirrhosis (CMS/HCC) Depression Enterocolitis due to Clostridium difficile, not specified as recurrent 11/04/2024 Esophageal varices GERD (gastroesophageal reflux disease) Hepatic encephalopathy (CMS/HCC) Hypertension Patient on waiting list for liver transplant 12/30/2024 SBP (spontaneous bacterial peritonitis) Tobacco use disorder [2] Past Surgical History: Procedure Laterality Date VASECTOMY [3] No family history on file. [4] Social History Tobacco Use Smoking status: Never Passive exposure: Current Smokeless tobacco: Current Types: Chew Substance Use Topics Alcohol use: Not Currently Comment: Quit 2 months ago Drug use: Never [5] Allergies Allergen Reactions Amoxicillin Hives and Rash Childhood allergy [6] Current Facility-Administered Medications: amLODIPine (Norvasc) tablet 5 mg, 5 mg, Oral, Daily, Camilal Soto APRN, PATTI, 5 mg at 01/11/25 08 bisacodyl (Dulcolax) suppository 10 mg, 10 mg, Rectal, Daily, Tg Morales APRN, 10 mg at 01/09/25 08 buPROPion SR (Wellbutrin SR) 12 hr tablet 150 mg, 150 mg, Oral, BID, Félix Simmons APRN, PATTI, 150 mg at 01/11/25 08 carvedilol (Coreg) tablet 25 mg, 25 mg, Oral, BID, Camilla Soto APRN, PATTI, 25 mg at 01/11/25825 ergocalciferol (Vitamin D-2) capsule 50,000 Units, 50,000 Units, Oral, Weekly, Maciel Olson MD, 50,000 Units at 01/09/25 08 escitalopram (Lexapro) tablet 10 mg, 10 mg, Oral, Daily, Félix Simmons APRN, PATTI, 10 mg at 01/11/25825 ferrous sulfate EC tablet 324 mg, 324 mg, Oral, Daily with breakfast, Félix Simmons APRN, DNP, 324 mg at 01/11/25825 fluconazole (Diflucan) tablet 200 mg, 200 mg, Oral, Daily, Maciel Olson MD, 200 mg at 01/11/25825 [Held by provider] heparin (porcine) injection 5,000 Units, 5,000 Units, Subcutaneous, BID, Félix Simmons APRN, DNP, 5,000 Units at 01/08/252055 hydrALAZINE (Apresoline) injection 10 mg, 10 mg, Intravenous, q1h PRN, 10 mg at 01/03/25 1708 OR hydrALAZINE (Apresoline) injection 20 mg, 20 mg, Intravenous, q1h PRN, Camilla Soto APRN, DNP, 20 mg at 01/06/25 0725 hydrOXYzine HCl (Atarax) tablet 10 mg, 10 mg, Oral, q6h PRN, Yari Quesada MD, 10 mg at 01/11/251844 insulin lispro (Admelog) 100 units/mL injection - Correction - Standard Dose, 0- 5 Units, Subcutaneous, TID with meals, Yari Quesada MD insulin lispro (Admelog) injection - Correction - Nighttime Dose, 0-3 Units, Subcutaneous, Twice atnight, Yari Quesada MD labetalol (Normodyne,Trandate) injection 10 mg, 10 mg, Intravenous, q1h PRN, 10 mg at 01/04/252008OR labetalol (Normodyne,Trandate) injection 20 mg, 20 mg, Intravenous, q1h PRN, Camilla Soto APRN, DNP, 20 mg at 01/07/251918 methocarbamol (Robaxin) tablet 500 mg, 500 mg, Oral, 4x daily, Cheryl Choi MD, 500 mg at 01/11/251844 mupirocin (Bactroban) 2 % ointment 1 Application, 1 Application, Each Nostril, BID, Damián Simmons MD, 1 Application at 01/11/25825 mycophenolate (Cellcept) capsule 500 mg, 500 mg, Oral, BID, Yari Quesada MD ondansetron (Zofran) injection 4 mg, 4 mg, Intravenous, q6h PRN, Negro Cr MD, 4 mg at 01/04/25 172 oxyCODONE (Roxicodone) immediate release tablet 5 mg, 5 mg, Oral, q4h PRN, 5 mg at 01/11/25 184 OR oxyCODONE (Roxicodone) immediate release tablet 10 mg, 10 mg, Oral, q4h PRN, Cheryl Choi MD, 10 mg at 01/11/25 0826 pantoprazole (Protonix) EC tablet 40 mg, 40 mg, Oral, Daily, Camilla Soto APRN, DNP, 40 mg at 01/11/25 0826 piperacillin-tazobactam (Zosyn) 4.5 g in sodium chloride 0.9% 100 mL IVPB (vial adapter required), 4.5 g, Intravenous, q6h, Negro Cr MD, Last Rate: 36.7 mL/hr at 01/11/25 1845, 4.5 g at 01/11/25 184 polyethylene glycol (Miralax) packet 17 g, 17 g, Oral, Daily, Tg Morales APRN, 17 g at 01/10/25 0927 predniSONE (Deltasone) tablet 5 mg, 5 mg, Oral, Daily with breakfast, Negro Cr MD, 5 mg at 01/11/25 08 senna-docusate (Lauren-Colace) 8.6-50 MG per tablet 2 tablet, 2 tablet, Oral, BID, Tg Morales APRN, 2 tablet at 01/11/25 0826 sodium chloride 0.9 % flush 10 mL, 10 mL, Intravenous, q12h, Camilla Soto APRN, DNP, 10 mL at 01/11/25 0452 sodium chloride 0.9 % flush 10 mL, 10 mL, Intravenous, q1h PRN, Camilla Soto APRN, PATTI sodium chloride 0.9 % flush 20 mL, 20 mL, Intravenous, q1h PRN, Camilla Soto APRN, PATTI sulfamethoxazole-trimethoprim (Bactrim) 400-80 MG per tablet 1 tablet, 1 tablet, Oral, Daily, Maciel Olson MD, 1 tablet at 01/11/25 08 tacrolimus (Prograf) capsule 2 mg, 2 mg, Oral, Every Morning (0600), Cheryl Choi MD, 2 mg at 01/11/25 0537 tacrolimus (Prograf) capsule 2 mg, 2 mg, Oral, q PM (1800), Yari Quesada MD, 2 mg at 01/11/25 184 traZODone (Desyrel) tablet 50 mg, 50 mg, Oral, Nightly, Roger Moody, 50 mg at 01/10/251 ursodiol (Actigall) capsule 300 mg, 300 mg, Oral, BID, Yari Quesada MD, 300 mg at 01/11/25825 valGANciclovir (Valcyte) tablet 450 mg, 450 mg, Oral, Daily, Maciel Olson MD, 450 mg at 01/11/25825 Cosigned by Parmjit Garcia MD at 2025 7:33 AM EST Associated attestation - Parmjit Garcia MD - 2025 7:33 AM EST I saw and evaluated the patient. I discussed the case with the resident/fellow and agree with the findings and plan as documented. * Care Plan - Rosibel Delvalle RN - 01/11/2025 3:34 PM EST Problem: Adult Inpatient Plan of Care Goal: Plan of Care Review Outcome: Ongoing, Progressing Flowsheets (Taken 01/11/20251531) Progress: improving Plan of Care Reviewed With: patient spouse Goal: Patient-Specific Goal (Individualized) Outcome: Ongoing, Progressing Flowsheets (Taken 01/11/2025799) Patient/Family-Specific Goals (Include Timeframe): Pt will remain free of inpatient falls this shift. Individualized Care Needs: Safety Anxieties, Fears or Concerns: denies Goal: Absence of Hospital-Acquired Illness or Injury Outcome: Ongoing, Progressing Intervention: Identify and Manage Fall Risk Flowsheets (Taken 01/11/2025799) Safety Promotion/Fall Prevention: activity supervised assistive device/personal items within reach fall prevention program maintained clutter-free environment maintained lighting adjusted nonskid shoes/slippers when out of bed mobility aid in reach room organization consistent safety round/check completed toileting scheduled Goal: Optimal Comfort and Wellbeing Outcome: Ongoing, Progressing Intervention: Provide Person-Centered Care Flowsheets (Taken 01/11/20251531) Trust Relationship/Rapport: care explained choices provided emotional support provided questions answered empathic listening provided questions encouraged reassurance provided thoughts/feelings acknowledged Problem: Fall Injury Risk Goal: Absence of Fall and Fall-Related Injury Outcome: Ongoing, Progressing Intervention: Promote Injury-Free Environment Flowsheets (Taken 01/11/2025 08) Safety Promotion/Fall Prevention: activity supervised assistive device/personal items within reach fall prevention program maintained clutter-free environment maintained lighting adjusted nonskid shoes/slippers when out of bed mobility aid in reach room organization consistent safety round/check completed toileting scheduled Problem: Anxiety Signs/Symptoms Goal: Optimized Energy Level (Anxiety Signs/Symptoms) Outcome: Ongoing, Progressing Flowsheets (Taken 01/11/2025 153) Mutually Determined Action Steps (Optimized Energy Level): grooms self without prompting participates in exercise activity dresses/ready for morning activity Goal: Optimized Cognitive Function (Anxiety Signs/Symptoms) Outcome: Ongoing, Progressing Flowsheets (Taken 01/11/20251531) Mutually Determined Action Steps (Optimized Cognitive Function): participates in cognitive restructuring participates in one-to-one sessions identifies thought that is not reality contributes to treatment plan Goal: Improved Mood Symptoms (Anxiety Signs/Symptoms) Outcome: Ongoing, Progressing Flowsheets (Taken 01/11/2025 153) Mutually Determined Action Steps (Improved Mood Symptoms): names internal triggers names external triggers adheres to medication regimen shares insight re: need for meds Goal: Improved Sleep (Anxiety Signs/Symptoms) Outcome: Ongoing, Progressing Flowsheets (Taken 01/11/20251531) Mutually Determined Action Steps (Improved Sleep): identifies disturbance factors Goal: Enhanced Social, Occupational or Functional Skills (Anxiety Signs/Symptoms) Outcome: Ongoing, Progressing Flowsheets (Taken 01/11/20251531) Mutually Determined Action Steps (Enhanced Social, Occupational or Functional Skills): participates in social skills training identifies support resources identifies personal strengths Goal: Improved Somatic Symptoms (Anxiety Signs/Symptoms) Outcome: Ongoing, Progressing Flowsheets (Taken 01/11/20251531) Mutually Determined Action Steps (Improved Somatic Symptoms): uses breathing techniques uses progressive muscle relaxation rates anxiety level via scale Problem: Skin Injury Risk Increased Goal: Skin Health and Integrity Outcome: Ongoing, Progressing Intervention: Optimize Skin Protection Flowsheets (Taken 01/11/2025 08) Activity Management: activity adjusted per tolerance ambulated in room Problem: Infection Goal: Absence of Infection Signs and Symptoms Outcome: Ongoing, Progressing Intervention: Prevent or Manage Infection Flowsheets (Taken 01/11/2025 1532) Infection Management: aseptic technique maintained Fever Reduction/Comfort Measures: lightweight clothing lightweight bedding Isolation Precautions: precautions maintained * Progress Notes - Yari Quesada MD - 01/11/2025 8:06 AM EST Abdominal Transplant Surgery Progress Note Events of past 24 hours: Orly White is a 44yo male with a PMH of decompensated alcohol related cirrhosis, ascites, HE, SBP, depression, anxiety, GERD, and HTN who presents to [facility] on 01/02 for possible liver transplant. 01/03: OLT Interval: POD8. NAEON. MRCP yesterday, pending final read. Liver U/S ok. SBP 179, AF, HDS, RA. Hgb and WBC S. Cr stable 1.36. LFT stable, Tbili increase 8.5 (6.1, 5.2). UOP at least 1.5L Edited by: Yari Quesada MD at 01/11/2025 0707 Review of Systems: 14-point ROS negative except as above in HPI. Last Recorded Vitals Blood pressure (!) 148/74, pulse 80, temperature 36.7 ??C (98.1 ??F), resp. rate 14, height 1.88 m (6' 2.02 ), weight 96.3 kg (212 lb 4.9 oz), SpO2 95%. Output by Drain (mL) 01/09/25 07 - 01/09/25 1859 01/09/25 1900 - 01/10/25 0659 01/10/25 07 - 01/10/25 1859 01/10/25 1900 - 01/11/25 0659 01/11/25 07 - 01/11/25 0807 Patient has no LDAs of requested type attached. Physical Exam GENERAL: Alert, NAD EYES: PERRL, - scleral icterus HENT: head atraumatic and normocephalic NECK: No JVD noted. The trachea appears midline. RESP: Symmetric expansion; no retractions. Normal WOB CARD: RRR Extremities: -LE edema, no cyanosis or clubbing. GI: appropriately TTP, distension improving. Incision c/d/I. Leakage around medial MOLLY drain site improved : No knight NEURO: GCS 15, alert and oriented 3x Results: Labs in last 18 hours Labs are independently reviewed daily. CBC WBC 6.42 Hb 8.3 (L) Plt 39 (L) Hct 24.6 (L) ANC ?? INR 1.2 (H), PTT ??, Anti-Xa ?? BMP Na 137 Cl 104 BUN 31 (H) Glu 81 K 3.5 (L) Co2 24 Cr 1.36 (H) Ca 7.8 (L) iCa ?? Mg 1.6 (L), Phos 3.6 Lactate ?? LFT AST 31 AlkPhos 121 (H) T Prot 4.4 (L) ALK 88 (H) Bili 8.5 (H) Alb ?? D.Bili ?? Coags: INR Date Value Ref Range Status 01/11/2025 1.2 (H) 0.9 - 1.1 Final Prothrombin Time Date Value Ref Range Status 01/11/2025 15.9 (H) 12.0 - 14.3 sec Final aPTT Date Value Ref Range Status 01/03/2025 48 (H) 25 - 35 sec Final Fibrinogen, Quantitative (Clottable) Date Value Ref Range Status 01/03/2025 134 (L) 208 - 459 mg/dL Final ABG: pH, Mixed Venous Date Value Ref Range Status 01/03/2025 7.31 (L) 7.32 - 7.43 Final pCO2, Mixed Venous Date Value Ref Range Status 01/03/2025 42 40 - 55 mmHg Final pO2, Mixed Venous Date Value Ref Range Status 01/03/2025 53 (H) 25 - 40 mmHg Final Base Excess, Mixed Venous Date Value Ref Range Status 01/03/2025 -5.1 (L) -2.0 - 3.0 mmol/L Final Bicarbonate, Calculated, Arterial Date Value Ref Range Status 01/03/2025 21 (L) 22 - 26 mmol/L Final Body Temperature Date Value Ref Range Status 01/03/2025 37.0 Celsius Final VBG: No results found for: BDVEN , BEVEN , VXO5IWI , DYJ5UZI , PHVEN , PO2VEN , X6HBFBIL , [id number] , PHVENTEMP Lactate: Lactate, Arterial, Whole Blood Date Value Ref Range Status 01/03/2025 1.7 (H) 0.5 - 1.6 mmol/L Final Medications Current Scheduled Medications[1] Current Continuous Medications[2] Current PRN Medications[3] Imaging (past 24h): I personally visualized and interpreted all of the imaging studies below and I agree with formal interpretation. XR Chest 1 View Result Date: 01/08/2025 No significant interval change. CRITICAL RESULT: No. COMMUNICATION: Per this written report. Drafted by Hermila Tapia MD on 01/08/2025 1:36 PM Final report signed by Hermila Tapia MD on 01/08/2025 1:37PM Assessment and Plan Medical Problems Problem List * (Principal) Decompensation of cirrhosis of liver (CMS/HCC) Tobacco use disorder, continuous Insomnia Anemia SBP (spontaneous bacterial peritonitis) Essential (primary) hypertension GERD (gastroesophageal reflux disease) Anxiety Thrombocytopenia (CMS/HCC) Hypotension Elevated INR Coagulopathy NINA (acute kidney injury) Abdominal distension [ ] Plt downtrending > subqH held [ ] CM for rehab [ ] f/u MRCP Orly White is a 44yo male with a PMH of decompensated alcohol related cirrhosis, ascites, HE, SBP, depression, anxiety, GERD, and HTN who presents to [facility] on 01/02 for possible liver transplant. Now s/p liver transplant on 01/03. Extubated post-op 01/03 to ND, now on RA. HDS off pressors. Abdominal exam is stable. Tbili has been increasing significantly, US Liver unremarkable with patent flow, MRCP done but pending final read. NINA improving. We will continue ursodiol and add zosyn. May needERCP. Neuro: GCS 15. MMPC - home escitalopram, wellbutrin, trazodone CV: HDS - on home coreg 25mg BID Pulm: RA, pulm hygiene GI: Regular diet - LFTs, Tbili increasing. Starting zosyn empirically - ursodiol 300 BID - PPI BID : UOP not charted; Cr down-trending - lytes: Mag, K repleted ID: AF, WBC S - fluconazole - starting zosyn Heme: Hgb S, plts 39 (44, 44, 49) - home ferrous sulfate Immunosuppression: cellcept 1000 mg BID, pred 4, fk 2/2 Diet: Reg GI reg: PPI, miralax, doc-senna LTD: CVC x1, PIV x2, DVT ppx: SCDs, SQH BID held, asa Consults: PM&R PT/OT: 01/08: acute rehab Dispo: acute rehab Edited by: Yari Quesada MD at 01/11/2025 0858 Yari Quesada MD Department of Urology, PGY-1 Pager: [phone] [1] amLODIPine, 5 mg, Oral, Daily aspirin, 81 mg, Oral, Daily bisacodyl, 10 mg, Rectal, Daily buPROPion SR, 150 mg, Oral, BID carvedilol, 25 mg, Oral, BID ergocalciferol, 50,000 Units, Oral, Weekly escitalopram, 10 mg, Oral, Daily ferrous sulfate, 324 mg, Oral, Daily with breakfast fluconazole, 200 mg, Oral, Daily [Held by provider] heparin (porcine), 5,000 Units, Subcutaneous, BID insulin regular, 0-5 Units, Subcutaneous, q6h NICCI magnesium sulfate, 2 g, Intravenous, Once methocarbamol, 500 mg, Oral, 4x daily mupirocin, 1 Application, Each Nostril, BID mycophenolate, 1,000 mg, Oral, BID pantoprazole, 40 mg, Oral, Daily piperacillin-tazobactam, 4.5 g, Intravenous, q6h polyethylene glycol, 17 g, Oral, Daily potassium chloride, 20 mEq, Oral, Once predniSONE, 5 mg, Oral, Daily with breakfast senna-docusate, 2 tablet, Oral, BID sodium chloride, 10 mL, Intravenous, q12h sulfamethoxazole-trimethoprim, 1 tablet, Oral, Daily tacrolimus, 2 mg, Oral, Every Morning (0600) tacrolimus, 2 mg, Oral, q PM (1800) traZODone, 50 mg, Oral, Nightly ursodiol, 300 mg, Oral, BID valGANciclovir, 450 mg, Oral, Daily [2] [3] PRN medications: hydrALAZINE OR hydrALAZINE, hydrOXYzine HCl, labetalol OR labetalol, ondansetron, oxyCODONE OR oxyCODONE, sodium chloride, sodium chloride Cosigned by Jude Gillis MD at 01/11/2025 9:19 AM EST Associated attestation - Jude Gillis MD - 01/11/2025 9:19 AM EST I saw and evaluated the patient with the fellow/resident. I have reviewed and agree with the assessment and plan as outlined in their note. Immunosuppression medication requires regular monitoring toensure that the patient isn???t experiencing any adverse effects as a result for the therapeutic agent. I have therefore, managed the patient???s immunosuppression medication listed in this note, addressed any toxic side effects, and adjusted levels appropriately. Hyperbilirubinemia. Noted Stricture on MRCP pending read. Consult GI for ERCP. Empiric abx. Decrease MMF. US ok. IS: FK. MMF 500. Pred. Jude Albrecht M.D. Abdominal Transplant Surgery * Care Plan - Marvin Bartlett RN - 01/11/2025 3:25 AM EST Problem: Adult Inpatient Plan of Care Goal: Plan of Care Review Outcome: Ongoing, Progressing Flowsheets (Taken 01/10/2025 1622 by Rosibel Delvalle, RN) Progress: improving Outcome Evaluation: pt and verbalize understanding of plan of care Plan of Care Reviewed With: patient spouse Goal: Patient-Specific Goal (Individualized) Outcome: Ongoing, Progressing Flowsheets (Taken 01/10/20251999) Patient/Family-Specific Goals (Include Timeframe): Pt will remain free from falls throughout the shift. Individualized Care Needs: Safety Anxieties, Fears or Concerns: None voiced Goal: Absence of Hospital-Acquired Illness or Injury Outcome: Ongoing, Progressing Goal: Optimal Comfort and Wellbeing Outcome: Ongoing, Progressing Problem: Fall Injury Risk Goal: Absence of Fall and Fall-Related Injury Outcome: Ongoing, Progressing Problem: Anxiety Signs/Symptoms Goal: Optimized Energy Level (Anxiety Signs/Symptoms) Outcome: Ongoing, Progressing Goal: Optimized Cognitive Function (Anxiety Signs/Symptoms) Outcome: Ongoing, Progressing Goal: Improved Mood Symptoms (Anxiety Signs/Symptoms) Outcome: Ongoing, Progressing Goal: Improved Sleep (Anxiety Signs/Symptoms) Outcome: Ongoing, Progressing Goal: Enhanced Social, Occupational or Functional Skills (Anxiety Signs/Symptoms) Outcome: Ongoing, Progressing Goal: Improved Somatic Symptoms (Anxiety Signs/Symptoms) Outcome: Ongoing, Progressing Problem: Functional Deficit Goal: Improved Balance and Postural Control Outcome: Ongoing, Progressing Goal: Optimal Cognitive Function Outcome: Ongoing, Progressing Goal: Optimal Coordination Outcome: Ongoing, Progressing Goal: Improved Muscle Strength Outcome: Ongoing, Progressing Goal: Improved Muscle Tone Outcome: Ongoing, Progressing Goal: Optimal Range of Motion Outcome: Ongoing, Progressing Goal: Compensation for Sensory Deficit Outcome: Ongoing, Progressing Problem: Skin Injury Risk Increased Goal: Skin Health and Integrity Outcome: Ongoing, Progressing Problem: Infection Goal: Absence of Infection Signs and Symptoms Outcome: Ongoing, Progressing * Care Plan - Rosibel Delvalle RN - 01/10/2025 4:35 PM EST Problem: Adult Inpatient Plan of Care Goal: Plan of Care Review Outcome: Ongoing, Progressing Flowsheets (Taken 01/10/2025 1622) Progress: improving Outcome Evaluation: pt and verbalize understanding of plan of care Plan of Care Reviewed With: patient spouse Goal: Patient-Specific Goal (Individualized) Outcome: Ongoing, Progressing Flowsheets (Taken 01/10/2025 0800) Patient/Family-Specific Goals (Include Timeframe): Pt will remain free of inpatient falls this shift. Individualized Care Needs: Safety Anxieties, Fears or Concerns: itching Goal: Absence of Hospital-Acquired Illness or Injury Outcome: Ongoing, Progressing Intervention: Identify and Manage Fall Risk Flowsheets (Taken 01/10/2025 0800) Safety Promotion/Fall Prevention: activity supervised assistive device/personal items within reach clutter-free environment maintained fall prevention program maintained lighting adjusted mobility aid in reach nonskid shoes/slippers when out of bed room organization consistent safety round/check completed toileting scheduled Goal: Optimal Comfort and Wellbeing Outcome: Ongoing, Progressing Intervention: Provide Person-Centered Care Flowsheets (Taken 01/10/2025 1622) Trust Relationship/Rapport: care explained choices provided emotional support provided questions encouraged questions answered empathic listening provided reassurance provided thoughts/feelings acknowledged Problem: Fall Injury Risk Goal: Absence of Fall and Fall-Related Injury Outcome: Ongoing, Progressing Intervention: Promote Injury-Free Environment Flowsheets (Taken 01/10/2025 0800) Safety Promotion/Fall Prevention: activity supervised assistive device/personal items within reach clutter-free environment maintained fall prevention program maintained lighting adjusted mobility aid in reach nonskid shoes/slippers when out of bed room organization consistent safety round/check completed toileting scheduled Problem: Anxiety Signs/Symptoms Goal: Optimized Energy Level (Anxiety Signs/Symptoms) Outcome: Ongoing, Progressing Flowsheets (Taken 01/10/20251621) Mutually Determined Action Steps (Optimized Energy Level): participates in exercise activity dresses/ready for morning activity grooms self without prompting Goal: Optimized Cognitive Function (Anxiety Signs/Symptoms) Outcome: Ongoing, Progressing Flowsheets (Taken 01/10/20251621) Mutually Determined Action Steps (Optimized Cognitive Function): participates in cognitive restructuring participates in one-to-one sessions contributes to treatment plan identifies thought that is not reality Goal: Improved Mood Symptoms (Anxiety Signs/Symptoms) Outcome: Ongoing, Progressing Flowsheets (Taken 01/10/20251621) Mutually Determined Action Steps (Improved Mood Symptoms): names internal triggers names external triggers Goal: Enhanced Social, Occupational or Functional Skills (Anxiety Signs/Symptoms) Outcome: Ongoing, Progressing Flowsheets (Taken 01/10/20251621) Mutually Determined Action Steps (Enhanced Social, Occupational or Functional Skills): participates in social skills training identifies support resources identifies personal strengths Goal: Improved Somatic Symptoms (Anxiety Signs/Symptoms) Outcome: Ongoing, Progressing Flowsheets (Taken 01/10/2025 162) Mutually Determined Action Steps (Improved Somatic Symptoms): uses progressive muscle relaxation uses breathing techniques rates anxiety level via scale Problem: Functional Deficit Goal: Improved Balance and Postural Control Outcome: Ongoing, Progressing Intervention: Optimize Balance and Safe Activity Flowsheets Taken 01/10/20251621 Self-Care Promotion: independence encouraged Taken 01/10/2025 0800 Activity Management: activity adjusted per tolerance Safety Promotion/Fall Prevention: activity supervised assistive device/personal items within reach clutter-free environment maintained fall prevention program maintained lighting adjusted mobility aid in reach nonskid shoes/slippers when out of bed room organization consistent safety round/check completed toileting scheduled Goal: Optimal Cognitive Function Outcome: Ongoing, Progressing Intervention: Optimize Cognitive Function Flowsheets (Taken 01/10/20251621) Environment Familiarity/Consistency: daily routine followed Self-Care Promotion: independence encouraged Goal: Optimal Coordination Outcome: Ongoing, Progressing Intervention: Optimize Motor Coordination and Function Flowsheets (Taken 01/10/2025 162) Self-Care Promotion: independence encouraged Goal: Improved Muscle Strength Outcome: Ongoing, Progressing Intervention: Optimize Muscle Strength Flowsheets (Taken 01/10/2025 162) Activity Assistance Provided: assistance, 1 person Self-Care Promotion: independence encouraged Goal: Improved Muscle Tone Outcome: Ongoing, Progressing Intervention: Optimize Muscle Tone Flowsheets (Taken 01/10/20251621) Spasticity Management: positioned with supportive device spastic muscles stretched standing frame utilized triggers managed weight-bearing facilitated Goal: Optimal Range of Motion Outcome: Ongoing, Progressing Intervention: Maintain Functional Joint Range Position Flowsheets (Taken 01/10/20251621) Range of Motion: active ROM (range of motion) encouraged Goal: Compensation for Sensory Deficit Outcome: Ongoing, Progressing Intervention: Optimize Sensory Function Flowsheets (Taken 01/10/2025 162) Skin Protection: incontinence pads utilized Problem: Skin Injury Risk Increased Goal: Skin Health and Integrity Outcome: Ongoing, Progressing Intervention: Optimize Skin Protection Flowsheets Taken 01/10/20251621 Skin Protection: incontinence pads utilized Taken 01/10/2025 0800 Activity Management: activity adjusted per tolerance Problem: Infection Goal: Absence of Infection Signs and Symptoms Outcome: Ongoing, Progressing Intervention: Prevent or Manage Infection Flowsheets (Taken 01/10/20251621) Fever Reduction/Comfort Measures: lightweight bedding lightweight clothing * Progress Notes - Yari Quesada MD - 01/10/2025 11:52 AM EST Abdominal Transplant Surgery Progress Note Events of past 24 hours: Orly White is a 44yo male with a PMH of decompensated alcohol related cirrhosis, ascites, HE, SBP, depression, anxiety, GERD, and HTN who presents to [facility] on 01/02 for possible liver transplant. 01/03: OLT Yesterday: -[facility] -Torsemide 20 mg PO, 25% albumin 1x Interval: POD7. Complains of itchy rash on neck, back, chest this am. NAEON. SBP 160s, AF, HDS, RA.UOP 2.4L . Hgb and WBC S. Cr down-trending. LFT mild increase, ALT 126(112), AST 49(45) Tbili increase 5.2 (2.8. 2.9). - repeat MRCP w worsening Tbili Edited by: Yari Quesada MD at 01/10/2025 1154 Review of Systems: 14-point ROS negative except as above in HPI. Last Recorded Vitals Blood pressure 134/65, pulse 68, temperature 36.8 ??C (98.2 ??F), resp. rate 18, height 1.88 m (6' 2.02 ), weight 97.2 kg (214 lb 4.6 oz), SpO2 96%. Output by Drain (mL) 01/08/25 0700 - 01/08/25 1859 01/08/25 1900 - 01/09/25 0659 01/09/25 0700 - 01/09/25 1859 01/09/25 1900 - 01/10/25 0659 01/10/25 0700 - 01/10/25 1154 Patient has no LDAs of requested type attached. Physical Exam GENERAL: Alert, NAD EYES: PERRL, - scleral icterus HENT: head atraumatic and normocephalic NECK: No JVD noted. The trachea appears midline. Flat red splotchy rash RESP: Symmetric expansion; no retractions. Normal WOB CARD: RRR Extremities: -LE edema, no cyanosis or clubbing. GI: appropriately TTP, distension improving. Incision c/d/I. Leakage around MOLLY drain sites : No knight NEURO: GCS 15, alert and oriented 3x Results: Labs in last 18 hours Labs are independently reviewed daily. CBC WBC 6.97 Hb 9.4 (L) Plt 44 (L) Hct 28.1 (L) ANC ?? INR 1.3 (H), PTT ??, Anti-Xa ?? BMP Na 136 Cl 102 BUN 43 (H) Glu 123 (H) K 3.7 Co2 24 Cr 1.38 (H) Ca 8.1 (L) iCa ?? Mg 1.5 (L), Phos 3.8 Lactate ?? LFT AST 39 AlkPhos 125 (H) T Prot 4.4 (L) ALK 111 (H) Bili 6.1 (H) Alb ?? D.Bili ?? Coags: INR Date Value Ref Range Status 01/10/2025 1.3 (H) 0.9 - 1.1 Final Prothrombin Time Date Value Ref Range Status 01/10/2025 16.0 (H) 12.0 - 14.3 sec Final aPTT Date Value Ref Range Status 01/03/2025 48 (H) 25 - 35 sec Final Fibrinogen, Quantitative (Clottable) Date Value Ref Range Status 01/03/2025 134 (L) 208 - 459 mg/dL Final ABG: pH, Mixed Venous Date Value Ref Range Status 01/03/2025 7.31 (L) 7.32 - 7.43 Final pCO2, Mixed Venous Date Value Ref Range Status 01/03/2025 42 40 - 55 mmHg Final pO2, Mixed Venous Date Value Ref Range Status 01/03/2025 53 (H) 25 - 40 mmHg Final Base Excess, Mixed Venous Date Value Ref Range Status 01/03/2025 -5.1 (L) -2.0 - 3.0 mmol/L Final Bicarbonate, Calculated, Arterial Date Value Ref Range Status 01/03/2025 21 (L) 22 - 26 mmol/L Final Body Temperature Date Value Ref Range Status 01/03/2025 37.0 Celsius Final VBG: No results found for: BDVEN , BEVEN , IKD9CTR , ZIH6RUE , PHVEN , PO2VEN , G0CVCBZE , [id number] , PHVENTEMP Lactate: Lactate, Arterial, Whole Blood Date Value Ref Range Status 01/03/2025 1.7 (H) 0.5 - 1.6 mmol/L Final Medications Current Scheduled Medications[1] Current Continuous Medications[2] Current PRN Medications[3] Imaging (past 24h): I personally visualized and interpreted all of the imaging studies below and I agree with formal interpretation. XR Chest 1 View Result Date: 01/08/2025 No significant interval change. CRITICAL RESULT: No. COMMUNICATION: Per this written report. Drafted by Hermila Tapia MD on 01/08/2025 1:36 PM Final report signed by Hermila Tapia MD on 01/08/2025 1:37PM Assessment and Plan Medical Problems Problem List * (Principal) Decompensation of cirrhosis of liver (CMS/HCC) Tobacco use disorder, continuous Insomnia Anemia SBP (spontaneous bacterial peritonitis) Essential (primary) hypertension GERD (gastroesophageal reflux disease) Anxiety Thrombocytopenia (CMS/HCC) Hypotension Elevated INR Coagulopathy NINA (acute kidney injury) Abdominal distension [ ] Plt downtrending > subqH held [ ] CM for rehab [ ] f/u liver U/S [ ] ursodiol [ ] f/u MRCP Orly White is a 44yo male with a PMH of decompensated alcohol related cirrhosis, ascites, HE, SBP, depression, anxiety, GERD, and HTN who presents to [facility] on 01/02 for possible liver transplant. Now s/p liver transplant on 01/03, recovering well. Extubated post-op 01/03 to [place]. HDS off pressors.Hasn't required blood products for resuscitation in several days. Abdominal exam is stable. InitialUS Liver read as unremarkable with patent flow, liver function improving appropriately. NINA improved. With increasing Tbili, will obtain stat liver U/S and MRCP, and add on ursodiol Neuro: GCS 15. [facility] - home escitalopram, wellbutrin, trazodone CV: HDS - on home coreg 25mg BID Pulm: RA, pulm hygiene GI: Regular - LFTs, Tbili increasing - add ursodiol 300 BID - PPI BID : UOP 2.4; Cr down-trending - lytes: Mag repleted ID: AF, WBC S - fluconazole Heme: Hgb S, plts 44 (44, 49, 55, 45, 48) - home ferrous sulfate Immunosuppression: cellcept 1000 mg BID, pred 4, fk 2/1 Diet: Reg GI reg: PPI, miralax, doc-senna LTD: CVC x1, PIV x2, DVT ppx: SCDs, SQH BID held, asa Consults: PM&R PT/OT: 01/08: acute rehab Dispo: acute rehab Edited by: Yari Quesada MD at 01/10/2025 6169 Yari Quesada MD Department of Urology, PGY-1 Pager: [phone] [1] amLODIPine, 5 mg, Oral, Daily aspirin, 81 mg, Oral, Daily bisacodyl, 10 mg, Rectal, Daily buPROPion SR, 150 mg, Oral, BID carvedilol, 25 mg, Oral, BID ergocalciferol, 50,000 Units, Oral, Weekly escitalopram, 10 mg, Oral, Daily ferrous sulfate, 324 mg, Oral, Daily with breakfast fluconazole, 200 mg, Oral, Daily [Held by provider] heparin (porcine), 5,000 Units, Subcutaneous, BID insulin regular, 0-5 Units, Subcutaneous, q6h NICCI methocarbamol, 500 mg, Oral, 4x daily mupirocin, 1 Application, Each Nostril, BID mycophenolate, 1,000 mg, Oral, BID pantoprazole, 40 mg, Oral, Daily polyethylene glycol, 17 g, Oral, Daily predniSONE, 5 mg, Oral, Daily with breakfast senna-docusate, 2 tablet, Oral, BID sodium chloride, 10 mL, Intravenous, q12h sulfamethoxazole-trimethoprim, 1 tablet, Oral, Daily tacrolimus, 1 mg, Oral, q PM (1800) tacrolimus, 2 mg, Oral, Every Morning (0600) traZODone, 50 mg, Oral, Nightly ursodiol, 300 mg, Oral, BID valGANciclovir, 450 mg, Oral, Daily [2] [3] PRN medications: hydrALAZINE OR hydrALAZINE, hydrOXYzine HCl, labetalol OR labetalol, ondansetron, oxyCODONE OR oxyCODONE, sodium chloride, sodium chloride Cosigned by Jude Gillis MD at 01/11/2025 12:42 PM EST Associated attestation - Jude Gillis MD - 01/11/2025 12:42 PM EST I saw and evaluated the patient with the fellow/resident. I have reviewed and agree with the assessment and plan as outlined in their note. Immunosuppression medication requires regular monitoring toensure that the patient isn???t experiencing any adverse effects as a result for the therapeutic agent. I have therefore, managed the patient???s immunosuppression medication listed in this note, addressed any toxic side effects, and adjusted levels appropriately. MRCP. Us ok. Jude Albrecht M.D. Abdominal Transplant Surgery * Care Plan - Bree Mcfarland RN - 01/09/2025 7:32 PM EST Problem: Adult Inpatient Plan of Care Goal: Plan of Care Review Outcome: Ongoing, Progressing Flowsheets (Taken 01/09/20251930) Progress: improving Outcome Evaluation: pt states understanding of plan of care Plan of Care Reviewed With: patient Goal: Patient-Specific Goal (Individualized) Outcome: Ongoing, Progressing Flowsheets (Taken 01/09/20251930) Patient/Family-Specific Goals (Include Timeframe): pt will remain safe and free from falls throughout shift Individualized Care Needs: mobility Anxieties, Fears or Concerns: safety Goal: Absence of Hospital-Acquired Illness or Injury Outcome: Ongoing, Progressing Intervention: Identify and Manage Fall Risk Flowsheets (Taken 01/09/2025 0800) Safety Promotion/Fall Prevention: assistive device/personal items within reach fall prevention program maintained activity supervised clutter-free environment maintained lighting adjusted mobility aid in reach nonskid shoes/slippers when out of bed room organization consistent toileting scheduled safety round/check completed Goal: Optimal Comfort and Wellbeing Outcome: Ongoing, Progressing Problem: Fall Injury Risk Goal: Absence of Fall and Fall-Related Injury Outcome: Ongoing, Progressing Problem: Anxiety Signs/Symptoms Goal: Optimized Energy Level (Anxiety Signs/Symptoms) Outcome: Ongoing, Progressing Goal: Optimized Cognitive Function (Anxiety Signs/Symptoms) Outcome: Ongoing, Progressing Goal: Improved Sleep (Anxiety Signs/Symptoms) Outcome: Ongoing, Progressing Problem: Skin Injury Risk Increased Goal: Skin Health and Integrity Outcome: Ongoing, Progressing Problem: Infection Goal: Absence of Infection Signs and Symptoms Outcome: Ongoing, Progressing Intervention: Prevent or Manage Infection Flowsheets (Taken 01/09/20251930) Infection Management: aseptic technique maintained Fever Reduction/Comfort Measures: fluid intake increased Isolation Precautions: precautions maintained * Progress Notes - Vanda Radford - 01/09/2025 4:11 PM EST Case Management Adult Progress Note Orly White 44 y.o. male CSN: [id number] Admission: 01/02/2025 9:05 AM Primary Problem: Decompensation of cirrhosis of liver (CMS/HCC) SW requested to follow up with [facility] on referral for acute rehab. Per [facility] liaison, [facility] be coming [facility] and auth has not been started with [facility] yet. SW completed [facility] RFS form and sent [phone]. Also sent email to [employer] notifing referral sent. Handoff provided to primary cm to follow up on Sunday. Vanda Radford POLICE JUSTICE, ACCOUNTING POLICY CONSULTANT Case Management * Progress Notes - Cheryl Choi MD - 01/09/2025 8:32 AM EST Abdominal Transplant Surgery Progress Note Events of past 24 hours: Orly White is a 44yo male with a PMH of decompensated alcohol related cirrhosis, ascites, HE, SBP, depression, anxiety, GERD, and HTN who presents to [facility] on 01/02 for possible liver transplant. 01/03: OLT Interval: POD6. NAEON. SBP 150-160, AF, HDS, RA. UOP 7.1L (3.7L). BM 2x charted. Hgb and WBC S. Cr 1.67 (1.82). LFT increased slightly. Tbili stable. Edited by: Cheryl Choi MD at 01/09/2025 0824 Review of Systems: 14-point ROS negative except as above in HPI. Last Recorded Vitals Blood pressure (!) 153/77, pulse 71, temperature 36.9 ??C (98.4 ??F), resp. rate 16, height 1.88 m (6' 2.02 ), weight 101 kg (223 lb 12.3 oz), SpO2 97%. Output by Drain (mL) 01/07/25 0700 - 01/07/25 1859 01/07/25 1900 - 01/08/25 0659 01/08/25 0700 - 01/08/25 18501/08/25 1900 - 01/09/25 0659 01/09/25 0700 - 01/09/25 0832 Patient has no LDAs of requested type attached. Physical Exam GENERAL: Alert, NAD EYES: PERRL, - scleral icterus HENT: head atraumatic and normocephalic NECK: No JVD noted. The trachea appears midline. RESP: Symmetric expansion; no retractions. Some conversational dyspnea improved CARD: RRR Extremities: -LE edema, no cyanosis or clubbing. GI: appropriately TTP, distension improving. Incision c/d/I : No knight NEURO: GCS 15, alert and oriented 3x Results: Labs in last 18 hours Labs are independently reviewed daily. CBC WBC 5.04 Hb 8.6 (L) Plt 44 (L) Hct 25.7 (L) ANC ?? INR 1.2 (H), PTT ??, Anti-Xa ?? BMP Na 135 (L) Cl 107 BUN 55 (H) Glu 96 K 4.1 Co2 20 (L) Cr 1.67 (H) Ca 8.2 (L) iCa ?? Mg 1.9, Phos 3.0 Lactate ?? LFT AST 45 AlkPhos 68 T Prot 4.6 (L) ALK 112 (H) Bili 2.8 (H) Alb ?? D.Bili ?? Coags: INR Date Value Ref Range Status 01/09/2025 1.2 (H) 0.9 - 1.1 Final Prothrombin Time Date Value Ref Range Status 01/09/2025 16.0 (H) 12.0 - 14.3 sec Final aPTT Date Value Ref Range Status 01/03/2025 48 (H) 25 - 35 sec Final Fibrinogen, Quantitative (Clottable) Date Value Ref Range Status 01/03/2025 134 (L) 208 - 459 mg/dL Final ABG: pH, Mixed Venous Date Value Ref Range Status 01/03/2025 7.31 (L) 7.32 - 7.43 Final pCO2, Mixed Venous Date Value Ref Range Status 01/03/2025 42 40 - 55 mmHg Final pO2, Mixed Venous Date Value Ref Range Status 01/03/2025 53 (H) 25 - 40 mmHg Final Base Excess, Mixed Venous Date Value Ref Range Status 01/03/2025 -5.1 (L) -2.0 - 3.0 mmol/L Final Bicarbonate, Calculated, Arterial Date Value Ref Range Status 01/03/2025 21 (L) 22 - 26 mmol/L Final Body Temperature Date Value Ref Range Status 01/03/2025 37.0 Celsius Final VBG: No results found for: BDVEN , BEVEN , WDK6AVR , BAN2XFU , PHVEN , PO2VEN , I0ACBBZZ , [id number] , PHVENTEMP Lactate: Lactate, Arterial, Whole Blood Date Value Ref Range Status 01/03/2025 1.7 (H) 0.5 - 1.6 mmol/L Final Medications Current Scheduled Medications[1] Current Continuous Medications[2] Current PRN Medications[3] Imaging (past 24h): I personally visualized and interpreted all of the imaging studies below and I agree with formal interpretation. XR Chest 1 View Result Date: 01/08/2025 No significant interval change. CRITICAL RESULT: No. COMMUNICATION: Per this written report. Drafted by Hermila Tapia MD on 01/08/2025 1:36 PM Final report signed by Hermila Tapia MD on 01/08/2025 1:37PM Assessment and Plan Medical Problems Problem List * (Principal) Decompensation of cirrhosis of liver (CMS/HCC) Tobacco use disorder, continuous Insomnia Anemia SBP (spontaneous bacterial peritonitis) Essential (primary) hypertension GERD (gastroesophageal reflux disease) Anxiety Thrombocytopenia (CMS/HCC) Hypotension Elevated INR Coagulopathy NINA (acute kidney injury) Abdominal distension [ ] Plt downtrending > subqH held Orly White is a 44yo male with a PMH of decompensated alcohol related cirrhosis, ascites, HE, SBP, depression, anxiety, GERD, and HTN who presents to [facility] on 01/02 for possible liver transplant. Now s/p liver transplant on 01/03, recovering well. Extubated post-op 01/03 to [facility]. HDS off pressors.Hasn't required blood products for resuscitation in >24 hrs. Abdominal exam is stable. US Liver read as unremarkable with patent flow, liver function improving appropriately. NINA improved. Will continue to prioritize ambulation, nutrition, pain control. Neuro: GCS 15. [facility] - home escitalopram, wellbutrin, trazodone CV: HDS - on home coreg 25mg BID Pulm: RA, pulm hygiene GI: Regular - LFTs, Tbili stable - PPI BID : UOP 7.1L; Cr 1.67 (1.82) - lytes okay - Na 135 (133) - Albumin/80 IV lasix 01/08 - Knight removed ID: AF, WBC 5 - fluconazole Heme: Hgb S, plts 44 (49, 55, 45, 48) - home ferrous sulfate Immunosuppression: cellcept 1000 mg BID, methylpred taper, fk 02/12 Diet: Reg GI reg: PPI LTD: CVC x1, PIV x2, DVT ppx: SCDs, SQH BID held, asa Consults: PM&R PT/OT: acute rehab Dispo: pending Edited by: Cheryl Choi MD at 01/09/2025 0832 Cheryl Choi MD General Surgery PGY-1 01/09/2025 [1] amLODIPine, 5 mg, Oral, Daily aspirin, 81 mg, Oral, Daily bisacodyl, 10 mg, Rectal, Daily buPROPion SR, 150 mg, Oral, BID carvedilol, 25 mg, Oral, BID ergocalciferol, 50,000 Units, Oral, Weekly escitalopram, 10 mg, Oral, Daily ferrous sulfate, 324 mg, Oral, Daily with breakfast fluconazole, 200 mg, Oral, Daily [Held by provider] heparin (porcine), 5,000 Units, Subcutaneous, BID insulin regular, 0-5 Units, Subcutaneous, q6h NICCI methocarbamol, 500 mg, Oral, 4x daily mupirocin, 1 Application, Each Nostril, BID mycophenolate, 1,000 mg, Oral, BID pantoprazole, 40 mg, Oral, Daily polyethylene glycol, 17 g, Oral, Daily predniSONE, 5 mg, Oral, Daily with breakfast senna-docusate, 2 tablet, Oral, BID sodium chloride, 10 mL, Intravenous, q12h [START ON 01/10/2025] sulfamethoxazole-trimethoprim, 1 tablet, Oral, Daily tacrolimus, 1 mg, Oral, BID (0600 & 1800) traZODone, 50 mg, Oral, Nightly [START ON 01/10/2025] valGANciclovir, 450 mg, Oral, Daily [2] [3] PRN medications: hydrALAZINE OR hydrALAZINE, labetalol OR labetalol, ondansetron, oxyCODONE OR oxyCODONE, sodium chloride, sodium chloride Cosigned by Jude Gillis MD at 01/09/2025 9:29 AM EST Associated attestation - Jude Gillis MD - 01/09/2025 9:29 AM EST I saw and evaluated the patient with the fellow/resident. I have reviewed and agree with the assessment and plan as outlined in their note. Immunosuppression medication requires regular monitoring toensure that the patient isn???t experiencing any adverse effects as a result for the therapeutic agent. I have therefore, managed the patient???s immunosuppression medication listed in this note, addressed any toxic side effects, and adjusted levels appropriately. S/p OLT Stable graft function. Add torsemide 20. Albumin 25% x 1. IS: Standard Dispo: CARMEN Albrecht M.D. Abdominal Transplant Surgery * Care Plan - Daylin Mckeon RN - 01/09/2025 6:28 AM EST Problem: Adult Inpatient Plan of Care Goal: Plan of Care Review Outcome: Ongoing, Progressing Flowsheets (Taken 01/09/2025 0625) Progress: improving Outcome Evaluation: pt awaits place emnt Plan of Care Reviewed With: patient Goal: Patient-Specific Goal (Individualized) Outcome: Ongoing, Progressing Flowsheets (Taken 01/08/20251999) Patient/Family-Specific Goals (Include Timeframe): pt will be safe throughout the shif t Individualized Care Needs: safety Anxieties, Fears or Concerns: safety Goal: Absence of Hospital-Acquired Illness or Injury Outcome: Ongoing, Progressing Intervention: Identify and Manage Fall Risk Flowsheets (Taken 01/09/2025624) Safety Promotion/Fall Prevention: activity supervised fall prevention program maintained Intervention: Prevent Skin Injury Flowsheets (Taken 01/09/2025624) Body Position: turned Skin Protection: incontinence pads utilized Intervention: Prevent and Manage VTE (Venous Thromboembolism) Risk Flowsheets (Taken 01/09/2025 0400) VTE Prevention/Management: medication education provided Intervention: Prevent Infection Flowsheets (Taken 01/09/2025624) Infection Prevention: hand hygiene promoted Goal: Optimal Comfort and Wellbeing Outcome: Ongoing, Progressing Intervention: Provide Person-Centered Care Flowsheets (Taken 01/09/2025624) Trust Relationship/Rapport: care explained questions answered questions encouraged Problem: Fall Injury Risk Goal: Absence of Fall and Fall-Related Injury Outcome: Ongoing, Progressing Intervention: Identify and Manage Contributors Flowsheets (Taken 01/09/2025624) Self-Care Promotion: independence encouraged Intervention: Promote Injury-Free Environment Flowsheets (Taken 01/09/2025624) Safety Promotion/Fall Prevention: activity supervised fall prevention program maintained Problem: Anxiety Signs/Symptoms Goal: Optimized Energy Level (Anxiety Signs/Symptoms) Outcome: Ongoing, Progressing Goal: Optimized Cognitive Function (Anxiety Signs/Symptoms) Outcome: Ongoing, Progressing Goal: Improved Mood Symptoms (Anxiety Signs/Symptoms) Outcome: Ongoing, Progressing Goal: Improved Sleep (Anxiety Signs/Symptoms) Outcome: Ongoing, Progressing Goal: Enhanced Social, Occupational or Functional Skills (Anxiety Signs/Symptoms) Outcome: Ongoing, Progressing Intervention: Promote Social, Occupational and Functional Ability Flowsheets (Taken 01/09/2025624) Trust Relationship/Rapport: care explained questions answered questions encouraged Goal: Improved Somatic Symptoms (Anxiety Signs/Symptoms) Outcome: Ongoing, Progressing Problem: Functional Deficit Goal: Improved Balance and Postural Control Outcome: Ongoing, Progressing Intervention: Optimize Balance and Safe Activity Flowsheets (Taken 01/09/2025624) Safety Promotion/Fall Prevention: activity supervised fall prevention program maintained Self-Care Promotion: independence encouraged Goal: Optimal Cognitive Function Outcome: Ongoing, Progressing Intervention: Optimize Cognitive Function Flowsheets (Taken 01/09/2025624) Self-Care Promotion: independence encouraged Goal: Optimal Coordination Outcome: Ongoing, Progressing Intervention: Optimize Motor Coordination and Function Flowsheets (Taken 01/09/2025624) Self-Care Promotion: independence encouraged Goal: Improved Muscle Strength Outcome: Ongoing, Progressing Intervention: Optimize Muscle Strength Flowsheets (Taken 01/09/2025624) Self-Care Promotion: independence encouraged Goal: Improved Muscle Tone Outcome: Ongoing, Progressing Goal: Optimal Range of Motion Outcome: Ongoing, Progressing Goal: Compensation for Sensory Deficit Outcome: Ongoing, Progressing Intervention: Optimize Sensory Function Flowsheets (Taken 01/09/2025624) Skin Protection: incontinence pads utilized Problem: Skin Injury Risk Increased Goal: Skin Health and Integrity Outcome: Ongoing, Progressing Intervention: Optimize Skin Protection Flowsheets (Taken 01/09/2025624) Skin Protection: incontinence pads utilized Problem: Infection Goal: Absence of Infection Signs and Symptoms Outcome: Ongoing, Progressing * Progress Notes - Micki Johnson - 01/08/2025 12:02 PM EST PHYSICAL THERAPY TREATMENT PATIENT DATA Patient Name Orly White Session Date 01/08/2025 Total Treatment Time 31 min PT Discharge Recommendations Acute rehab PT Equipment Recommendations Defer to facility PRECAUTIONS Medical Precautions Yes Medical Precautions: Post-Surgical precautions, Fall precautions Post-Surgical Precautions: Abdominal: no lifting >10# HOME LIVING/SET-UP Lives With Spouse ( Patricia and 29 year old son) Home Type House Home Equipment Rollator Home Layout One level, Stairs to enter without rails (with basement, but patient does nothave to travel to basement level) 4 Bathroom Layout Tub/Shower combo Standard Accessible via walker Additional Comments Patient had been to [facility] in September, and was still receiving outpatient PT. PRIOR LEVEL OF FUNCTION Receives help from Spouse Level of Mobility Ambulatory- household only Mobility [place] Independent gait without device History of Falls Yes (mechanical falls- balancing during dressing and fall from bed level) ADL Performance ADL Performance: Needs assistance Bathing: Needs assist (had difficulty transferring out of tub) Upper Body Dressing: Independent Lower Body Dressing: Needs assist (with shoes and socks due to edema) Grooming: Independent Toileting: Independent Eating: Independent Home Management Skills: Independent PRESENTATION Oxygen Oxygen Therapy: None (Room air) Lines and Tubes CVC Triple Lumen 01/03/25 Left Subclavian (Active) Closed/Suction Drain 2 Left;Ventral Abdomen Bulb 19 Fr. (Active) Urethral Catheter Single lumen;Temperature probe 16 Fr. (Active) Peripheral IV 01/02/25 Left;Posterior Wrist (Active) Peripheral IV 01/03/25 Right;Posterior Hand (Active) Pre-Session Supine, Head of bed elevated, Lines intact RN agreeable to session. Post-Session Sitting in chair, RN notified, Lines intact, Call light in reach Needs met. Family present. Bracing (if applicable) Abdominal binder SUBJECTIVE PARTICIPANTS IN CARE Visitors Present Yes, Spouse, Mother Subjective Report Pt HAS been: * Ambulating in-room distances * Transferring Bed <> Chair since last PT treatment. Pt remains unaware when pt may be discharged from [facility]. Dining Room Attendant Cafeteria (if applicable) Dining Room Attendant Cafeteria: Not Applicable OBJECTIVE & INTERVENTIONS PAIN Pain Intensity / Location Pre-Mobility: abdominal pain 6-8/10 Pain Intensity / Location Post-Mobility: abdominal pain 6-8/10 Prior to PT's departure: * rest was provided * pt was positioned for comfort * pillow support was provided * RN was informed of pt's pain DELIRIUM SCREENING RASS: Alert and calm Feature 3: Altered Level of Consciousness: Negative THERAPEUTIC ACTIVITY Treatment Minutes 21 PT assisted and instructed pt in functional mobility activities to improve their ability to move around safely and reduce the effects of post illness/surgery related sedentary status. Pt participatedin bed mobility, supine-sit, [id number] and toilet transfers. They were able to progress to ambulation on level surfaces twice with one seated rest break. PT provided education to patient regarding logrolling technique to minimize abdominal strain during supine to sit transfers. During therapeutic activities today, verbal and tactile cues given to pt by PT for: postural alignment, weight shifting, improved biomechanics, safety, movement sequence, hand/foot placement, assistive device management, and appropriate activity pacing. BED MOBILITY Level of [place] Physical/Non- physical Assist Adaptive Equipment Utilized Rolling/ Turning Minimum assist (75% patient effort) Verbal Cues, Additional assist utilized for safety, Minimal cues Bed rail Scooting/ Bridging Contact guard Verbal Cues, Minimal cues, Additional assist utilized for safety Supine to Sit Moderate assist (50% patient's effort) Verbal Cues, Nonverbal cues (demo/gestures), Moderate cues, Additional assist utilized for safety Bed rail TRANSFERS Level of [place] Physical/Non- physical Assist Adaptive Equipment Utilized Sit to Stand Minimum assist (75% patient's effort) Verbal Cues, Nonverbal cues (demo/gestures), Additional assist utilized for safety Walker, rolling Stand to sit Minimum assist (75% patient's effort) Verbal Cues, Nonverbal cues (demo/gestures) Walker, rolling Toilet Transfer Ambulation, To toilet BALANCE Postural Appearance Posture: Rounded shoulders, Forward head Level of [place] Balance Support Facilitated Activities Static Sit Standby assist Feet supported, Right upper extremity support, Left upper extremity support Sitting on edge of bed Dynamic Sit Contact guard Feet supported (varying UE support) Dynamic Sitting- Balance: Lateral weight shifts, Anterior/Posterior weight shifts Static Stand Minimum assistance Right upper extremity support, Left upper extremity support (on RW)Standing beside bed Dynamic Stand Minimum assistance Left upper extremity support, Right upper extremity support (on RW) Dynamic Sitting-Balance: Lateral weight shifts, Anterior/Posterior weight shifts, Reaching for objects AMBULATION Level of [place] Distance Adaptive Equipment Utilized Ambulation Minimum assistance 35ft Rolling walker Apparatus: Chair follow Comments Gait pattern: slow anastasiya, decreased stride length and step height, narrow NELA PT fitted pt with rolling walker. PT assisted and instructed pt during ambulation on level surfaces. Verbal and tactile cues given to improve gait pattern: shoulders over hips, level head, walker management during turns and approach to seating surfaces, increased stride length and height. PT presence was necessary for: * decreasing patient's risk of falling while progressing pt's distances THERAPEUTIC EXERCISE Treatment Minutes 10 In Sitting - Supported position, pt performed x10 reps of the following exercises bilaterally: * Marching * Hip Abduction-Adductions * Long Arc Quads * Ankle Pumps Hip add isometrics Semirecumbent: Heel slides Verbal cuing and assistance was required for proper technique and for maximizing muscle contractibility and strength. Pt was provided the rationale for performing exercise program 2-3x daily, a written HEP was provided for improved pt recall of PT-prescribed HEP, and pt was provided the opportunity to review the written HEP and ask questions. [email or web address] Access Code: [email or web address] Standardized Assessments [facility] 6-Clicks Mobility Assessment Difficulty patient has turning over in bed (including adjusting bedclothes, sheets, and blankets)?:A little Difficulty patient has sitting down on and standing up from a chair with arms (wheelchair, bedside commode, etc.)?: A little Difficulty patient has moving from lying on back to sitting on the side of the bed?: A lot How much help does the patient need moving to and from a bed to a chair (including a wheelchair)?: A little How much help does the patient need to walk in hospital room?: A little How much help does the patient need climbing 3-5 steps with a railing?: A lot [facility] 6-Clicks Mobility Assessment Total : 16 ASSESSMENT Pt is improving, as noted by: pt ambulated increased walking distances during this PT treatment compared to last PT treatment. On POD #5 pt's activity level was limited by pain and fatigue. Pt has the following impairments: impaired activity tolerance, gross functional weakness, impaired posture, impaired balance, pain, and poor transfer sequencing, which are limiting the pt from performing independent functional mobility. As evidenced in this assessment, Pt's current level of function is lower than the reported prior level of function and for this reason further PT treatment is indicated. Inpatient PT will continue tofollow. Patient will benefit from Acute Rehab for the following reasons: Pt remains as a high fall risk and is unsafe for discharge to home. Pt is currently not able to exit home safely and timely in the event of an emergency evacuation. Pt is unable to perform automobile transfers needed to access outpatient care setting and pharmacy needs. Pt ambulates at a slow pace and cannot perform ADL and iADLs functionally without prolonged and frequent rest breaks. Pt would benefit from further instruction to improve functional transfers and ambulation. Pt would benefit from a short Acute Rehab stay where patient could become more independent performing transfers and ambulating. Pt would benefit more from Acute Rehab than other rehab services due to pt's medical acuity, level of immobility, and need for improved safety prior to returning home. Pt requires multiple therapy disciplines including PT/OT and frequent adjustments in medications and treatment from MD/RN disciplines which cannot be easily accessed at a lower level of care. Pt would likely progress independence of functional mobility towards PLOF with 3 hours of therapy daily, which is unable to be provided in the subacute rehab or acute care hospital settings. PT RECOMMENDATIONS Discharge Destination Acute rehab Discharge Equipment Defer to facility PLAN PT to continue skilled therapy interventions to facilitate pt in reaching their functional goals. PT GOALS PT GOAL DETAILS DATE ASSESSED STATUS PROGRESS PT Goal 1: Patient will perform supine to/from sitting transfer with SBA from flat bed surface usign log roll technique. PT Goal 1 Established Date: 01/05/25 PT Goal 1 Time Frame: 2 weeks PT Goal 2: Patient will perform sit to/from standing transfer with RW and SBA. PT Goal 2 Established Date: 01/05/25 PT Goal 2 Time Frame: 2 weeks PT Goal 3: Patient will ambulate at least 400 feet continuously over level surfaces with RW and SBA. PT Goal 3 Established Date: 01/05/25 PT Goal 3 Time Frame: 2 weeks PT Goal 4: Patient will ascend/descend 4 steps with unilateral hand rail and SBA in order to accesshome environment safely. PT Goal 4 Established Date: 01/05/25 PT Goal 4 Time Frame: 2 weeks PT Goal 5: Patient will be compliant with HEP with set-up as needed from staff/family. PT Goal 5 Established Date: 01/05/25 PT Goal 5 Time Frame: 2 weeks Written by Micki Johnson on 01/08/25 at 1:11 PM. * Progress Notes - Nadira Obando - 01/08/2025 12:00 PM EST Occupational Therapy Treatment Patient Name: Orly White Today's Date: 01/08/2025 OT Discharge Recommendations: Acute rehab Equipment Recommended: Rolling walker Subjective Spouse reports that pt has been consistently ambulating to and from bathroom with minimal assistance. Participants in Care Family/Caregiver Present: Yes Family/Caregiver: Spouse, Mother Dining Room Attendant Cafeteria: Not Applicable Presentation Oxygen Therapy: None (Room air) Lines and Tubes: Intravenous access, Surgical drains, Urinary catheter (MOLLY drain x1) Pre-Session: Supine, Head of bed elevated, Lines intact Pre-Session Comments: RN agreeable to session. Post-Session: Sitting in chair, RN notified, Lines intact, Call light in reach Post-Session Comments: Needs met. Family present. Precautions Medical Precautions: Post-Surgical precautions, Fall precautions Post-Surgical Precautions: Abdominal: no lifting >10# Objective Pain Pt reported 3/10 abdominal pain. He denied an increase in pain during functional movement. Pt was purposefully positioned with pillow supports and resting comfortably at time of OT departure. RN aware of session details. Delirium Screening RASS: Alert and calm Confusion Assessment Method-ICU (CAM-ICU/PCAM-ICU) Feature 3: Altered Level of Consciousness: Negative Cognition Cognition Cognitive Skill Development Intervention: Pt mildly distractable and intermittently benefited from modified command following and/or visual fedback (modeling) to support multi-step instruction. Overall Cognitive Status: Within Functional Limits Arousal/Alertness: Appropriate responses to stimuli Mood/Behavior: Alert Orientation Level: Oriented X4 Single Step Commands: Consistently, 100% of the time Multi-Step Commands: With increased time, With repetition, 75% of the time Method of Communication: Verbal Safety Judgment: Good awareness of safety precautions Awareness of Errors: Good awareness of errors made Deficit Awareness: Fully aware of deficits Attention Span: Appears intact Self-Care Interventions Self Care/Home Management (ADLs) Time Entry: 20 ADL retraining completed through bed mobility, functional transfers and task specific ADLs. OT usedrehabilitative and occupational adaptation FOR to guide intervention strategies based on pt performance. OT provided environmental structure, tactile and verbal cues to optimize pt performance. UE Dressing UE Dressing Level of Assistance: Minimum assistance UE Dressing Where Assessed: Edge of bed UE Dressing Interventions: To don 'back gown'. OT stabilized gown and provided MIN VCs for initiation. Pt able to thread arms through gown sleeves with minimal assistance Lower Extremity Dressing Sock Level of Assistance: Dependent LE Dressing Where Assessed: Bed level LE Dressing Interventions: OTgraded task and cued pt to complete leg lift for sock placement. OT provided AAROM for leg raise and stabilzation, imapcted by LB edema Toileting Toileting Level of Assistance: Minimum assistance, Dependent (MIN.A for transfer; DEP A for pericare) Toileting Interventions: OT provided MIN proprioceptive and verbal cues for RW position at toilet and hand placement on grab bar during transfer. Pt requested to allow spouse to complete pericare s/pBM. Standing tolerance was the focus of intervention at this time. Pt was able to maintain stand for >2-minutes during pericare. One short standing rest break before pursuing endurance activity in hallway. Community Re-integration/Activity Tolerance Pt was engaged in endurance activity to support his ability to safely complete sequential ADL tasksand ambulate household/community distance. OT provided education on energy conservation techniques including: pacing, balancing rest with activity, and body awareness strategies. OT emphasized the benefits of identifying signs and symptoms of fatigue/dyspnea to avoid overexertion/fall. Pt acknowledged education provided. He had difficult comprehending use of Modified KIM scale and benefited fromcues to initiate rest break with noted fatigue. He used RW and ambulated with MIN.A. Unable to achieve household distance before seated rest. Bed Mobility Bed Mobility Interventions: Cues provided for logroll technique to aid with pain management and post operative healing. Spouse reported pt often tries to use a 'belly crunch' to get out of bed. Pt stated his abdomen was sore after getting out of bed earlier this AM. OT encouraged pt to follow through with logroll technique outside of therapy session. He required MIN tactile cues for activating legs off EOB and MOD tactile cue to L shoulder for sup>sit transition. Bed Mobility Exam: Rolling/Turning Level of [place]: Minimum assist (75% patient effort) Physical/Nonphysical Assist: Verbal Cues, Additional assist utilized for safety, Minimal cues Assistive Device: Bed rails Bed Mobility Exam: Scooting/Bridging Level of [place]: Contact guard Physical/Nonphysical Assist: Verbal Cues, Minimal cues, Additional assist utilized for safety Assistive Device: Bed rails Bed Mobility Exam: Supine to Sit Level of [place]: Moderate assist (50% patient's effort) Physical/Nonphysical Assist: Verbal Cues, Nonverbal cues (demo/gestures), Moderate cues, Additionalassist utilized for safety Assistive Device: Bed rails Transfers See Self-Care section for details on OT transfer interventions. Transfer Exam: Sit to stand Level of [place]: Minimum assist (75% patient's effort) Physical/Nonphysical Assist: Verbal Cues, Nonverbal cues (demo/gestures), Additional assist utilized for safety Assistive Device: Walker, rolling Transfer Exam: Stand to Sit Level of [place]: Minimum assist (75% patient's effort) Physical/Nonphysical Assist: Verbal Cues, Nonverbal cues (demo/gestures) Assistive Device: Walker, rolling Toilet Transfer Level of [place]: Minimum assist (75% patient's effort) Physical/Nonphysical Assist: Verbal Cues, Nonverbal cues (demo/gestures), Additional assist utilized for safety Type of Transfer: Ambulation, To toilet Assistive Device: Walker, rolling, Grab bar Balance Postural Appearance Posture: Rounded shoulders Static Sitting Balance Static Sitting-Balance Support: Feet supported, Right upper extremity support, Left upper extremitysupport Static Sitting-Level of Assistance: Standby assist Dynamic Sitting Balance Dynamic Sitting-Balance Support: Feet supported (varying UE support) Dynamic Sitting-Balance: Lateral weight shifts, Anterior/Posterior weight shifts Level of Assistance: Contact guard Static Standing Balance Static Standing-Balance Support: Right upper extremity support, Left upper extremity support (on RW) Static Standing-Level of Assistance: Minimum assistance Dynamic Standing Balance Dynamic Standing-Balance Support: Left upper extremity support, Right upper extremity support (on RW) Dynamic Standing-Balance: Anterior/Posterior weight shifts, Lateral weight shifts Dynamic Standing Level of Assistance: Minimum assistance Therapeutic Exercise (10 minutes) As preparatory for ADL engagement, pt completed UB therapeutic exercise to support strength. coordination and activity tolerance. Pt benefited from modeling and MIN tactile cues for pace and positioning. With back unsupported on chair, completed serratus punches x10 and scap squeezes x10. OT modeled coordinated breathing during movements and pt appropriately replicated. OT developed pt a personalized [employer] HEP to support personal causation and consistency with daily strengthening program. HEP also reviewed with caregiver. Access Code: [email or web address] Exercises - Seated Shoulder Horizontal Abduction with Resistance - 2 x daily - 10 reps - Seated Elbow Flexion with Self-Anchored Resistance - 2 xdaily - 10 reps - Seated Elbow Extension with Self-Anchored Resistance - 2 x daily - 10 reps - Seated Punches - 3 x daily - 10 reps - Crossed Arm Scapular Retraction - 1 x daily - 10 reps Assessment Pt cooperative and provided good effort throughout therapy session. Noted improvement in activity tolerance when compared to previous OT session. Last session, pt completed simulated b/c transfer. This date, pt was able to enter bathroom with RW and completed toilet transfer with MIN.A. Still requiring DEP A for pericare and LB dressing. Per occupational profile, pt is independent with ADLs and community ambulation at baseline. Functional independence is currently impacted by pain, impaired strength, deconditioning, balance and coordination deficits. OT recommends acute rehab when pt is medically ready for discharge. Acute rehab will provide pt with the appropriate amount of rehab intensity to maximize his safety and independence. Pt presents that he will tolerate 3-hours of therapy per day and excel with a multi-disciplinary approach. OT will continue to follow pt while he is in the hospital setting to aid with aforementioned areas of need and discharge transition. OT Recommendations Discharge Destination: Acute rehab Discharge Equipment: Rolling walker Goals OT GOAL DETAILS Goal Established Date Time Frame Goal Status OT Goal 1: Pt. will complete lower body dressing with SBA + AE as needed 01/05/25 2 weeks OT Goal 2: Pt. will complete transfer to standard height toilet seat with SBA and LRAD including entering/exiting bathroom 01/05/25 2 weeks OT Goal 3: Pt will complete toileting including lauren-hygiene and clothing management with set-up A + supervision for safety. 01/05/25 2 weeks OT Goal 4: Pt. will complete sequential grooming tasks with SBA standing sinkside >3 minutes in duration 01/05/25 Written by Nadira Obando on 01/08/25 at 1:14 PM. * Progress Notes - Roger Moody - 01/08/2025 10:58 AM EST Abdominal Transplant Surgery Progress Note Events of past 24 hours: Orly White is a 44yo male with a PMH of decompensated alcohol related cirrhosis, ascites, HE, SBP, depression, anxiety, GERD, and HTN who presents to [facility] on 01/02 for possible liver transplant. 01/03: OLT Interval: POD5. NAEON. SBP 150-160, AF, HDS, RA. UOP 2.9L (1.8L). MOLLY 180cc SS, BM 3x charted. Cr improving 1.8 (2.1) Changes: DC knight Albumin and Lasix 80 IV Started asa 81 Started home trazodone Increased coreg to 25mg Edited by: Roger Moody at 01/08/2025 1118 Review of Systems: 14-point ROS negative except as above in HPI. Last Recorded Vitals Blood pressure (!) 152/74, pulse 71, temperature 36.9 ??C (98.4 ??F), temperature source Oral, resp. rate 20, height 1.88 m (6' 2.02 ), weight 106 kg (233 lb 0.4 oz), SpO2 96%. Output by Drain (mL) 01/06/25 0700 - 01/06/25 1859 01/06/25 1900 - 01/07/25 0659 01/07/25 0700 - 01/07/25 1859 01/07/25 1900 - 01/08/25 0659 01/08/25 0700 - 01/08/25 1058 Closed/Suction Drain 2 Left;Ventral Abdomen Bulb 19 Fr. 240 60 10 10 Physical Exam GENERAL: Alert, NAD EYES: PERRL, - scleral icterus HENT: head atraumatic and normocephalic NECK: No JVD noted. The trachea appears midline. RESP: Symmetric expansion; no retractions. Some conversational dyspnea CARD: RRR Extremities: -LE edema, no cyanosis or clubbing. GI: appropriately TTP, distension improving. Incision c/d/I, JPx2 with sanguinous output with SS leakage. : Knight in place draining clear yellow urine NEURO: GCS 15, alert and oriented 3x Results: Labs in last 18 hours Labs are independently reviewed daily. CBC WBC 5.64 Hb 8.8 (L) Plt 50 (L) Hct 25.8 (L) ANC 4.50 INR 1.3 (H), PTT ??, Anti-Xa ?? BMP Na 136 Cl 107 BUN 65 (H) Glu 113 (H) K 4.3 Co2 19 (L) Cr 1.82 (H) Ca 8.2 (L) iCa ?? Mg 2.3, Phos 3.1 Lactate ?? LFT AST 44 AlkPhos 71 T Prot 4.8 (L) ALK 104 (H) Bili 2.9 (H) Alb ?? D.Bili ?? Coags: INR Date Value Ref Range Status 01/08/2025 1.3 (H) 0.9 - 1.1 Final Prothrombin Time Date Value Ref Range Status 01/08/2025 16.1 (H) 12.0 - 14.3 sec Final aPTT Date Value Ref Range Status 01/03/2025 48 (H) 25 - 35 sec Final Fibrinogen, Quantitative (Clottable) Date Value Ref Range Status 01/03/2025 134 (L) 208 - 459 mg/dL Final ABG: pH, Mixed Venous Date Value Ref Range Status 01/03/2025 7.31 (L) 7.32 - 7.43 Final pCO2, Mixed Venous Date Value Ref Range Status 01/03/2025 42 40 - 55 mmHg Final pO2, Mixed Venous Date Value Ref Range Status 01/03/2025 53 (H) 25 - 40 mmHg Final Base Excess, Mixed Venous Date Value Ref Range Status 01/03/2025 -5.1 (L) -2.0 - 3.0 mmol/L Final Bicarbonate, Calculated, Arterial Date Value Ref Range Status 01/03/2025 21 (L) 22 - 26 mmol/L Final Body Temperature Date Value Ref Range Status 01/03/2025 37.0 Celsius Final VBG: No results found for: BDVEN , BEVEN , GAS4IIU , JHB8IPO , PHVEN , PO2VEN , [id number] , [id number] , PHVENTEMP Lactate: Lactate, Arterial, Whole Blood Date Value Ref Range Status 01/03/2025 1.7 (H) 0.5 - 1.6 mmol/L Final Medications Current Scheduled Medications[1] Current Continuous Medications[2] Current PRN Medications[3] Imaging (past 24h): I personally visualized and interpreted all of the imaging studies below and I agree with formal interpretation. Assessment and Plan Medical Problems Problem List * (Principal) Decompensation of cirrhosis of liver (CMS/HCC) Tobacco use disorder, continuous Insomnia Anemia SBP (spontaneous bacterial peritonitis) Essential (primary) hypertension GERD (gastroesophageal reflux disease) Anxiety Thrombocytopenia (CMS/HCC) Hypotension Elevated INR Coagulopathy NINA (acute kidney injury) Abdominal distension [ ] F/u lab timing Orly White is a 44yo male with a PMH of decompensated alcohol related cirrhosis, ascites, HE, SBP, depression, anxiety, GERD, and HTN who presents to [facility] on 01/02 for possible liver transplant. Now s/p liver transplant on 01/03, recovering well. Extubated post-op 01/03 to ND. HDS off pressors.Hasn't required blood products for resuscitation in >24 hrs. Abdominal exam is stable. US Liver read as unremarkable with patent flow, liver function improving appropriately. NINA improved slightlywith increased UOP, decreasing Cr. Will continue to prioritize ambulation, nutrition, pain control. Neuro: GCS 15. MMPC - home escitalopram, wellbutrin, trazodone CV: HDS - on home coreg 25mg BID Pulm: RA, pulm hygiene GI: Regular - LFTs, Tbili downtrending - PPI BID : UOP 2.9L; Cr improving 2.10 (2.27) & BUN 71 (67) - lytes: Phos 4.4 (5.2), Mag 2.6 (2.6) - Na 133 (129, 132, 134) - Albumin/80 IV lasix today - Knight to be removed ID: AF, WBCs 5.55 - fluconazole Heme: Hgb S, plts 49 (55, 45, 48) - home ferrous sulfate Immunosuppression: cellcept 1000 mg BID, methylpred taper, fk 2/2 (HELD) Diet: Reg GI reg: PPI LTD: CVC x1, PIV x2, 2x MOLLY drains, knight DVT ppx: SCDs, SQH BID Consults: PM&R PT/OT: acute rehab Dispo: pending Edited by: Roger Moody at 01/08/2025 1128 Roger Moody MD General Surgery PGY-3 01/08/2025 [1] amLODIPine, 5 mg, Oral, Daily bisacodyl, 10 mg, Rectal, Daily buPROPion SR, 150 mg, Oral, BID carvedilol, 25 mg, Oral, BID [START ON 01/09/2025] ergocalciferol, 50,000 Units, Oral, Weekly escitalopram, 10 mg, Oral, Daily ferrous sulfate, 324 mg, Oral, Daily with breakfast fluconazole, 200 mg, Oral, Daily heparin (porcine), 5,000 Units, Subcutaneous, BID insulin regular, 0-5 Units, Subcutaneous, q6h NICCI methocarbamol, 500 mg, Oral, 4x daily mupirocin, 1 Application, Each Nostril, BID mycophenolate, 1,000 mg, Oral, BID pantoprazole, 40 mg, Oral, Daily polyethylene glycol, 17 g, Oral, Daily [START ON 01/09/2025] predniSONE, 5 mg, Oral, Daily with breakfast senna-docusate, 2 tablet, Oral, BID sodium chloride, 10 mL, Intravenous, q12h [START ON 01/10/2025] sulfamethoxazole-trimethoprim, 1 tablet, Oral, Daily [START ON 01/10/2025] valGANciclovir, 450 mg, Oral, Daily [2] [3] PRN medications: hydrALAZINE OR hydrALAZINE, labetalol OR labetalol, ondansetron, oxyCODONE OR oxyCODONE, sodium chloride, sodium chloride, traZODone Cosigned by Jude Gillis MD at 01/11/2025 11:32 AM EST Associated attestation - Jude Gillis MD - 01/11/2025 11:32 AM EST I saw and evaluated the patient with the fellow/resident. I have reviewed and agree with the assessment and plan as outlined in their note. Immunosuppression medication requires regular monitoring toensure that the patient isn???t experiencing any adverse effects as a result for the therapeutic agent. I have therefore, managed the patient???s immunosuppression medication listed in this note, addressed any toxic side effects, and adjusted levels appropriately. Diuresis. DC planning. Jude Albrecht M.D. Abdominal Transplant Surgery * Care Plan - Zachery Villarreal RN - 01/08/2025 3:21 AM EST Problem: Adult Inpatient Plan of Care Goal: Absence of Hospital-Acquired Illness or Injury Intervention: Identify and Manage Fall Risk Flowsheets (Taken 01/08/2025 032) Safety Promotion/Fall Prevention: activity supervised assistive device/personal items within reach clutter-free environment maintained nonskid shoes/slippers when out of bed lighting adjusted fall prevention program maintained safety round/check completed Problem: Adult Inpatient Plan of Care Goal: Absence of Hospital-Acquired Illness or Injury Intervention: Prevent Skin Injury Flowsheets (Taken 01/08/2025 0320) Body Position: weight shifting Skin Protection: incontinence pads utilized Problem: Adult Inpatient Plan of Care Goal: Absence of Hospital-Acquired Illness or Injury Intervention: Prevent and Manage VTE (Venous Thromboembolism) Risk Flowsheets (Taken 01/08/2025 0320) VTE Prevention/Management: bilateral SCDs (sequential compression devices) on Problem: Adult Inpatient Plan of Care Goal: Absence of Hospital-Acquired Illness or Injury Intervention: Prevent Infection Flowsheets (Taken 01/08/2025 0320) Infection Prevention: hand hygiene promoted rest/sleep promoted Problem: Adult Inpatient Plan of Care Goal: Optimal Comfort and Wellbeing Intervention: Monitor Pain and Promote Comfort Flowsheets (Taken 01/08/2025 0320) Pain Management Interventions: pain management plan reviewed with patient/caregiver Problem: Adult Inpatient Plan of Care Goal: Optimal Comfort and Wellbeing Intervention: Provide Person-Centered Care Flowsheets (Taken 01/08/2025 0320) Trust Relationship/Rapport: care explained choices provided emotional support provided empathic listening provided questions answered thoughts/feelings acknowledged Problem: Fall Injury Risk Goal: Absence of Fall and Fall-Related Injury Intervention: Identify and Manage Contributors Flowsheets (Taken 01/08/2025 0320) Medication Review/Management: medications reviewed Self-Care Promotion: independence encouraged Problem: Fall Injury Risk Goal: Absence of Fall and Fall-Related Injury Intervention: Promote Injury-Free Environment Flowsheets (Taken 01/08/2025 0320) Safety Promotion/Fall Prevention: activity supervised assistive device/personal items within reach clutter-free environment maintained nonskid shoes/slippers when out of bed lighting adjusted fall prevention program maintained safety round/check completed * Care Plan - Fariha Hill RN - 01/07/2025 8:09 PM EST Problem: Adult Inpatient Plan of Care Goal: Plan of Care Review Outcome: Ongoing, Progressing Flowsheets (Taken 01/07/20252007) Progress: improving Plan of Care Reviewed With: patient spouse Problem: Fall Injury Risk Goal: Absence of Fall and Fall-Related Injury Outcome: Ongoing, Progressing Intervention: Identify and Manage Contributors Flowsheets (Taken 01/07/20252007) Medication Review/Management: medications reviewed Self-Care Promotion: independence encouraged Problem: Anxiety Signs/Symptoms Goal: Optimized Energy Level (Anxiety Signs/Symptoms) Outcome: Ongoing, Progressing Goal: Improved Mood Symptoms (Anxiety Signs/Symptoms) Outcome: Ongoing, Progressing Flowsheets (Taken 01/07/20252007) Mutually Determined Action Steps (Improved Mood Symptoms): names internal triggers names external triggers Goal: Improved Sleep (Anxiety Signs/Symptoms) Outcome: Ongoing, Progressing Flowsheets (Taken 01/07/20252007) Mutually Determined Action Steps (Improved Sleep): identifies disturbance factors uses relaxation techniques * Nursing Note - Renee Blankenship RN - 01/07/2025 6:00 PM EST Post-Op teaching session with patient and caregiver : Reviewed information in [facility] Post-operative Guide to Liver Transplant. Discussed transplant clinic follow-up, precautions with new liver and immunosuppression, nutrition, caregiver responsibilities, general living guidelines, howand when to contact transplant team, possible complications, and general medication reminders. Alsoreviewed contact numbers for transplant team. Patient and caregiver attentive and asked appropriatequestions; appeared to understand information provided and verbalized understanding. * Progress Notes - DearMariela RN - 01/07/2025 2:14 PM EST spar finisher attended table rounds with MD Olson and members of Txp team this AM. Met with pt and at bedside this afternoon. Pt up to chair, alert and interactive. Room air. Lower extremity edema noted. PM and R to see pt today. Per MD Olson pt medically ready for rehab. * Consults - Yari Reilly RD - 01/07/2025 1:48 PM EST Adult Nutrition Evaluation Note Orly White 44 y.o. male CSN: [id number] Room/Bed 213/213A Nutrition evaluation type: follow-up Reason for evaluation: Index Admission: Post-transplant discharge phase Hospital course: 44y/oM w/ hx decompensated EtOH related cirrhosis now s/p OLT 01/03. Past medical/ surgical history: Past Medical History[1] Surgical History[2] Social history: Additional comments: Visited pt this AM; mother at bedside. Reports appetite/intake improving over last two days. Drinking Boost between meals TID. Discussed hypermetabolic state post-transplant and emphasized importance of maintaining increased kcal/protein intake. Reports intermittently poor PO intake over last several months d/t fluid retention/hospitalizations; UBW 240# and weight fluctuates. Reviewed post-transplant nutrition education (NDIs, preventing weight gain/high blood sugar/high cholesterol, food safety, etc). Pt reports using herbal alternative to chewing tobacco (nicotine/tobacco free) and had product in room. Reviewed ingredient list and discouraged further use d/t kudzu root/licorice root and potential for interference w/ immunosuppressants; pt verbalized understanding. Pt and mother were both engaged and asking questions appropriately. Provided written materials and RDcontact information - encouraged pt to reach out with questions as needed. Vitals and Basic Assessment: BP: (!) 145/76 Temp: 36.8 ??C (98.2 ??F) Invasive Ventilator Initiated (ETT/Trach Only): Yes Oxygen Therapy: None (Room air) O2 Delivery Method: Nasal cannula [place] Coma Scale Score: 15 Ros[place] Scale Score: 18 Danyel/Dustin Pressure Risk Score: 42 Most Recent BM Date: 01/06/25 GI Symptoms: Constipation Edema: Generalized, Right lower extremity, Left lower extremity, Right upper extremity, Left upper extremity, Perineal Allergies: Allergies[3] Medications: Current Scheduled Medications[4] Meds were reviewed: Yes Labs: Labs in last 18 hours CBC WBC 5.55 Hb 8.6 (L) Plt 49 (L) Hct 24.8 (L) ANC 4.26 INR 1.3 (H), PTT ??, Anti-Xa ?? BMP Na 133 (L) Cl 104 BUN 71 (H) Glu 98 K 5.0 (H) Co2 18 (L) Cr 2.10 (H) Ca 8.2 (L) iCa ?? Mg 2.6 (H), Phos 4.4 Lactate ?? LFT AST 45 AlkPhos 69 T Prot 4.7 (L) ALK 96 (H) Bili 3.2 (H) Alb ?? D.Bili ?? Lab Results Component Value Date HGBA1C <4.0 10/21/2024 Anthropometrics: Height: 188 cm (6' 2.02 ) Weight: 109 kg (240 lb 1.3 oz) BMI (Calculated): 30.81 Weight Evaluation: Obese-Class 1 (BMI 30-34.9) [place] Body Weight (kg): 86.4 Percent [place] Body Weight: 126 Adjusted Body Weight (kg): 92 Wt Readings from Last 10 Encounters: 11/26/25 109 kg (240 lb 1.3 oz) 12/30/24 108 kg (237 lb 3.4 oz) 12/18/24 108 kg (238 lb 1.6 oz) 12/17/24 110 kg (241 lb 10 oz) 12/03/24 98.8 kg (217 lb 13 oz) 11/25/24 99 kg (218 lb 4.1 oz) 11/11/24 100 kg (220 lb 7.4 oz) 11/04/24 110 kg (242 lb 4.6 oz) 11/04/24 109 kg (240 lb 4.8 oz) 10/20/24 117 kg (257 lb 15 oz) Estimated Needs: Kcal/ K-35 Kcal Provided: 0253-7384 Kcal Needs Based On: Adjusted weight Gm Protein/ Kg : 1.5-2 Protein Provided: 138-184 Protein Needs Based On: Adjusted weight Metabolic Cart Study Results: Current Nutrition Intake: Diet Supplements: Boost Glucose Control Diet Order: Adult Diet Diet Texture: Regular Electrolyte Restriction: Low phosphorus Other Restrictions: (Solid Organ Transplant) Percent Meals Eaten (%): 25-75% x 2 meals Diet Experience and Nutrition History: Diet Education Provided: Yes (Post-transplant) Pertinent home medications: Pent[employer]al needs: Nutrition Focused Physical Exam: Physical exam performed on (date): 01/07/2025 Temples (muscles): Mild Clavicle (muscle): Mild Shoulder (muscle): None Interosseous (muscle): None Orbital (fat): None Triceps (fat): Mild Energy Intake: (P) <75% EER x >1 month Assessment of Malnutrition: Malnutrition Identified: (P) Yes Meets Criteria For: (P) Moderate malnutrition In Context Of: (P) Chronic illness/ injury Based On: (P) Mild muscle mass loss, Moderately reduced energy intake Present on Admission: (P) Yes Nutrition Problem: Inadequate oral intake related to current clinical condition as evidenced by NPO. Status of Nutrition Diagnosis: Resolved Increased nutrient needs kcal, protein related to cirrhosis s/p OLT as evidenced by increased metabolic demand associated w/ healing. Status of Nutrition Diagnosis: New Nutrition Interventions and Recommendations: - Regular, Low Phos, Solid Organ Transplant diet - Continue Boost Glucose Control TID to supplement Nutrition Monitoring and Goals: Source of nutrition established by RD follow up (met, d/c) NFPE on follow up (met, d/c) Acuity Level: [address], LD [1] Past Medical History: Diagnosis Date Anxiety Ascites Cirrhosis (CMS/HCC) Depression Enterocolitis due to Clostridium difficile, not specified as recurrent 11/04/2024 Esophageal varices GERD (gastroesophageal reflux disease) Hepatic encephalopathy (CMS/HCC) Hypertension Patient on waiting list for liver transplant 12/30/2024 SBP (spontaneous bacterial peritonitis) Tobacco use disorder [2] Past Surgical History: Procedure Laterality Date VASECTOMY [3] Allergies Allergen Reactions Amoxicillin Hives and Rash Childhood allergy [4] amLODIPine, 5 mg, Oral, Daily bisacodyl, 10 mg, Rectal, Daily buPROPion SR, 150 mg, Oral, BID carvedilol, 25 mg, Oral, BID [START ON 01/09/2025] ergocalciferol, 50,000 Units, Oral, Weekly escitalopram, 10 mg, Oral, Daily ferrous sulfate, 324 mg, Oral, Daily with breakfast fluconazole, 200 mg, Oral, Daily heparin (porcine), 5,000 Units, Subcutaneous, BID insulin regular, 0-5 Units, Subcutaneous, q6h NICCI lidocaine, 20 mL, Infiltration, Once methocarbamol, 500 mg, Oral, 4x daily [START ON 01/08/2025] methylPREDNISolone sod suc (PF), 30 mg, Intravenous, Once mupirocin, 1 Application, Each Nostril, BID mycophenolate, 1,000 mg, Oral, BID pantoprazole, 40 mg, Oral, Daily polyethylene glycol, 17 g, Oral, Daily [START ON 01/09/2025] predniSONE, 5 mg, Oral, Daily with breakfast senna-docusate, 2 tablet, Oral, BID sodium chloride, 10 mL, Intravenous, q12h [START ON 01/10/2025] sulfamethoxazole-trimethoprim, 1 tablet, Oral, Daily [START ON 01/10/2025] valGANciclovir, 450 mg, Oral, Daily * Nursing Note - Samira Sanders RN - 01/07/2025 12:41 PM EST Transplant nurse coordinator rounds completed. Immediate questions and concerns addressed. Encouraged to contact coordinator if needed. See most recent progress note for full POC. * Progress Notes - Cheryl Choi MD - 01/07/2025 9:15 AM EST Abdominal Transplant Surgery Progress Note Events of past 24 hours: Orly White is a 44yo male with a PMH of decompensated alcohol related cirrhosis, ascites, HE, SBP, depression, anxiety, GERD, and HTN who presents to [facility] on 01/02 for possible liver transplant. 01/03: OLT Interval: POD4. NAEON. Feeling better, tolerating reg diet. AF, HDS, RA. UOP 1.8L (790). MOLLY 885 (1L) and 300 (360). BM 1x. Cr improving 2.1 (2.27). LFTs and Tbili downtrending. No CXR. Edited by: Cheryl Choi MD at 01/07/2025 0915 Review of Systems: 14-point ROS negative except as above in HPI. Last Recorded Vitals Blood pressure (!) 158/82, pulse 73, temperature 36.6 ??C (97.9 ??F), resp. rate 18, height 1.88 m (6' 2.02 ), weight 109 kg (240 lb 1.3 oz), SpO2 96%. Output by Drain (mL) 01/05/25 07 - 01/05/25 1859 01/05/25 1900 - 01/06/25 0659 01/06/25 0700 - 01/06/25 1859 01/06/25 1900 - 01/07/25 0659 01/07/25 0700 - 01/07/25 0915 Closed/Suction Drain 1 Right;Ventral Abdomen Bulb 19 Fr. 600 495 455 430 110 Closed/Suction Drain 2 Left;Ventral Abdomen Bulb 19 Fr. 180 180 240 60 0 Physical Exam GENERAL: Alert, NAD EYES: PERRL, - scleral icterus HENT: head atraumatic and normocephalic NECK: No JVD noted. The trachea appears midline. RESP: Symmetric expansion; no retractions. CARD: RRR Extremities: -LE edema, no cyanosis or clubbing. GI: appropriately TTP, distension improving. Incision c/d/I, JPx2 with sanguinous output with SS leakage. : Knight in place draining clear yellow urine NEURO: GCS 15, alert and oriented 3x Results: Labs in last 18 hours Labs are independently reviewed daily. CBC WBC 5.55 Hb 8.6 (L) Plt 49 (L) Hct 24.8 (L) ANC 4.26 INR 1.3 (H), PTT ??, Anti-Xa ?? BMP Na 133 (L) Cl 104 BUN 71 (H) Glu 98 K 5.0 (H) Co2 18 (L) Cr 2.10 (H) Ca 8.2 (L) iCa ?? Mg 2.6 (H), Phos 4.4 Lactate ?? LFT AST 45 AlkPhos 69 T Prot 4.7 (L) ALK 96 (H) Bili 3.2 (H) Alb ?? D.Bili ?? Coags: INR Date Value Ref Range Status 01/07/2025 1.3 (H) 0.9 - 1.1 Final Prothrombin Time Date Value Ref Range Status 01/07/2025 16.5 (H) 12.0 - 14.3 sec Final aPTT Date Value Ref Range Status 01/03/2025 48 (H) 25 - 35 sec Final Fibrinogen, Quantitative (Clottable) Date Value Ref Range Status 01/03/2025 134 (L) 208 - 459 mg/dL Final ABG: pH, Mixed Venous Date Value Ref Range Status 01/03/2025 7.31 (L) 7.32 - 7.43 Final pCO2, Mixed Venous Date Value Ref Range Status 01/03/2025 42 40 - 55 mmHg Final pO2, Mixed Venous Date Value Ref Range Status 01/03/2025 53 (H) 25 - 40 mmHg Final Base Excess, Mixed Venous Date Value Ref Range Status 01/03/2025 -5.1 (L) -2.0 - 3.0 mmol/L Final Bicarbonate, Calculated, Arterial Date Value Ref Range Status 01/03/2025 21 (L) 22 - 26 mmol/L Final Body Temperature Date Value Ref Range Status 01/03/2025 37.0 Celsius Final VBG: No results found for: BDVEN , BEVEN , DMW2LQZ , RHN0LDF , PHVEN , PO2VEN , V4IVNFLQ , CMJ0WWAPHOB , PHVENTEMP Lactate: Lactate, Arterial, Whole Blood Date Value Ref Range Status 01/03/2025 1.7 (H) 0.5 - 1.6 mmol/L Final Medications Current Scheduled Medications[1] Current Continuous Medications[2] Current PRN Medications[3] Imaging (past 24h): I personally visualized and interpreted all of the imaging studies below and I agree with formal interpretation. Assessment and Plan Medical Problems Problem List * (Principal) Decompensation of cirrhosis of liver (CMS/HCC) Tobacco use disorder, continuous Insomnia Anemia SBP (spontaneous bacterial peritonitis) Essential (primary) hypertension GERD (gastroesophageal reflux disease) Anxiety Thrombocytopenia (CMS/HCC) Hypotension Elevated INR Coagulopathy NINA (acute kidney injury) Abdominal distension [ ] if we need to add for HTN, add norvasc or nifedipine [ ] keep knight [ ] subQH TID and asa > Plt 49 Orly White is a 44yo male with a PMH of decompensated alcohol related cirrhosis, ascites, HE, SBP, depression, anxiety, GERD, and HTN who presents to [facility] on 01/02 for possible liver transplant. Now s/p liver transplant on 01/03, recovering well. Extubated post-op 01/03 to ND. HDS off pressors.Hasn't required blood products for resuscitation in >24 hrs. Abdominal exam is stable. US Liver read as unremarkable with patent flow, liver function improving appropriately. NINA improved slightlywith increased UOP, decreasing Cr. Will continue to prioritize ambulation, nutrition, pain control. Neuro: GCS 15. MMPC - home escitalopram, wellbutrin; held home trazodone CV: HDS - on home coreg 12.5 mg BID Pulm: on NC; IS/PEP/PAP. No CXR today GI: Reg - LFTs, Tbili downtrending - PPI BID : UOP 1.8L; Cr improving 2.10 (2.27) & BUN 71 (67) - lytes: Phos 4.4 (5.2), Mag 2.6 (2.6) - Na 133 (129, 132, 134) ID: AF, WBCs 5.55 - fluconazole Heme: Hgb S, plts 49 (55, 45, 48) - home ferrous sulfate Immunosuppression: cellcept 1000 mg BID, methylpred taper, fk 2/2 (HELD) Diet: Reg GI reg: PPI LTD: CVC x1, PIV x2, 2x MOLLY drains, knight DVT ppx: SCDs, SQH BID Consults: CCM off PT/OT: acute rehab Dispo: pending Edited by: Cheryl Choi MD at 01/07/2025 0915 Cheryl Choi MD General Surgery PGY-1 01/07/2025 [1] amLODIPine, 5 mg, Oral, Daily bisacodyl, 10 mg, Rectal, Daily buPROPion SR, 150 mg, Oral, BID carvedilol, 25 mg, Oral, BID [START ON 01/09/2025] ergocalciferol, 50,000 Units, Oral, Weekly escitalopram, 10 mg, Oral, Daily ferrous sulfate, 324 mg, Oral, Daily with breakfast fluconazole, 200 mg, Oral, Daily heparin (porcine), 5,000 Units, Subcutaneous, BID insulin regular, 0-5 Units, Subcutaneous, q6h NICCI methocarbamol, 500 mg, Oral, 4x daily [START ON 01/08/2025] methylPREDNISolone sod suc (PF), 30 mg, Intravenous, Once mupirocin, 1 Application, Each Nostril, BID mycophenolate, 1,000 mg, Oral, BID pantoprazole, 40 mg, Oral, Daily polyethylene glycol, 17 g, Oral, Daily [START ON 01/09/2025] predniSONE, 5 mg, Oral, Daily with breakfast senna-docusate, 2 tablet, Oral, BID sodium chloride, 10 mL, Intravenous, q12h [START ON 01/10/2025] sulfamethoxazole-trimethoprim, 1 tablet, Oral, Daily [START ON 01/10/2025] valGANciclovir, 450 mg, Oral, Daily [2] [3] PRN medications: fentaNYL OR fentaNYL, hydrALAZINE OR hydrALAZINE, labetalol OR labetalol, ondansetron, oxyCODONE OR oxyCODONE, sodium chloride, sodium chloride, traZODone Cosigned by Maciel Olson MD at 01/07/2025 10:41 AM EST Associated attestation - Maciel Olson MD - 01/07/2025 10:41 AM EST I saw and evaluated the patient with the resident/fellow. I discussed the case with the resident/fellow and agree with the findings and plan as documented. Doing well this morning. H&H stable. Liver function improving. Regular diet. Having bowel movements. Remove lateral drain. Drains are serosanguinous. Abdomen is softer this morning. NINA --> UOP 1.8L. Creatinine slightly improved. Continue to observe. Ambulating and working with PT. Acute rehab recommendations. Should be good to go over there soon (possibly end of week). Immunosuppression: fk, mmf, pred Immunosuppression medications require regular monitoring to ensure that the patient is not experiencing any adverse effects as a result for the therapeutic agent. I have therefore managed the patient's immunosuppression medication listed in this note, addressed any toxic side effects and adjusted levels appropriately. I have also reviewed the patient's medications, dosages and have assessed the need to continue or discontinue any medications. List of medications below: Current Medications[1] [1] Current Facility-Administered Medications: amLODIPine (Norvasc) tablet 5 mg, 5 mg, Oral, Daily, Camilla Soto APRN, DNP, 5 mg at 01/07/25 0813 bisacodyl (Dulcolax) suppository 10 mg, 10 mg, Rectal, Daily, Tg Morales APRN, 10 mg at 01/06/25 1500 buPROPion SR (Wellbutrin SR) 12 hr tablet 150 mg, 150 mg, Oral, BID, Félix Simmons APRN, DNP, 150 mg at 01/07/25 0811 carvedilol (Coreg) tablet 25 mg, 25 mg, Oral, BID, Camilla Soto APRN, DNP, 25 mg at 01/07/25 0812 [START ON 01/09/2025] ergocalciferol (Vitamin D-2) capsule 50,000 Units, 50,000 Units, Oral, Weekly, Maciel Olson MD escitalopram (Lexapro) tablet 10 mg, 10 mg, Oral, Daily, Félix Simmons APRN, DNP, 10 mg at 01/07/25 0812 fentaNYL (Sublimaze) injection 25 mcg, 25 mcg, Intravenous, q2h PRN, 25 mcg at 01/05/25 0913 ORfentaNYL (Sublimaze) injection 50 mcg, 50 mcg, Intravenous, q2h PRN, Camilla Soto APRN, DNP, 50 mcg at 01/05/25 0354 ferrous sulfate EC tablet 324 mg, 324 mg, Oral, Daily with breakfast, Félix Simmons APRN, DNP, 324 mg at 01/07/25 0811 fluconazole (Diflucan) tablet 200 mg, 200 mg, Oral, Daily, Maciel Olson MD, 200 mg at 01/07/25 0813 heparin (porcine) injection 5,000 Units, 5,000 Units, Subcutaneous, BID, Félix Simmons APRN, DNP, 5,000 Units at 01/07/25 0814 hydrALAZINE (Apresoline) injection 10 mg, 10 mg, Intravenous, q1h PRN, 10 mg at 01/03/25 1708 OR hydrALAZINE (Apresoline) injection 20 mg, 20 mg, Intravenous, q1h PRN, Camilla Soto APRN, DNP, 20 mg at 01/06/25 0725 insulin regular (HumuLIN R,NovoLIN R) 100 units/mL injection - Correction - Standard Dose, 0-5 Units, Subcutaneous, q6h [facility], Negro Cr MD labetalol (Normodyne,Trandate) injection 10 mg, 10 mg, Intravenous, q1h PRN, 10 mg at 01/04/252008OR labetalol (Normodyne,Trandate) injection 20 mg, 20 mg, Intravenous, q1h PRN, Camilla Soto APRN, DNP, 20 mg at 01/05/25 1010 methocarbamol (Robaxin) tablet 500 mg, 500 mg, Oral, 4x daily, Cheryl Choi MD, 500 mg at 01/07/25 0813 [START ON 01/08/2025] methylPREDNISolone sodium succinate (PF) (SOLU-Medrol) injection 30 mg, 30 mg, Intravenous, Once, Negro Cr MD mupirocin (Bactroban) 2 % ointment 1 Application, 1 Application, Each Nostril, BID, Damián Simmons MD, 1 Application at 01/07/25 0814 mycophenolate (Cellcept) capsule 1,000 mg, 1,000 mg, Oral, BID, Maciel Olson MD, 1,000 mg at 01/07/25 0811 ondansetron (Zofran) injection 4 mg, 4 mg, Intravenous, q6h PRN, Negro Cr MD, 4 mg at 01/04/25 1722 oxyCODONE (Roxicodone) immediate release tablet 5 mg, 5 mg, Oral, q6h PRN OR oxyCODONE (Roxicodone) immediate release tablet 10 mg, 10 mg, Oral, q6h PRN, Kathy Jiang APRN, PATTI, 10 mg at 01/07/25 0850 pantoprazole (Protonix) EC tablet 40 mg, 40 mg, Oral, Daily, Camilla Soto APRN, DNP, 40 mg at 01/07/25 0813 polyethylene glycol (Miralax) packet 17 g, 17 g, Oral, Daily, Tg Morales APRN, 17 g at 01/07/25 0811 [START ON 01/09/2025] predniSONE (Deltasone) tablet 5 mg, 5 mg, Oral, Daily with breakfast, Negro Cr MD senna-docusate (Lauren-Colace) 8.6-50 MG per tablet 2 tablet, 2 tablet, Oral, BID, Tg Morales APRN, 2 tablet at 01/07/25 0813 sodium chloride 0.9 % flush 10 mL, 10 mL, Intravenous, q12h, Camilla Soto APRN, DNP, 10 mL at 01/07/25 0434 sodium chloride 0.9 % flush 10 mL, 10 mL, Intravenous, q1h PRN, Camilla Soto APRN, PATTI sodium chloride 0.9 % flush 20 mL, 20 mL, Intravenous, q1h PRN, Camilla Soto APRN, DNP [START ON 01/10/2025] sulfamethoxazole-trimethoprim (Bactrim) 400-80 MG per tablet 1 tablet, 1 tablet, Oral, Daily, Maciel Olson MD traZODone (Desyrel) tablet 50 mg, 50 mg, Oral, Nightly PRN, Camilla Soto APRN, DNP, 50 mg at 01/06/252121 [START ON 01/10/2025] valGANciclovir (Valcyte) tablet 450 mg, 450 mg, Oral, Daily, Maciel Olson MD * Care Plan - Galileo Abdi RN - 01/06/2025 1:14 PM EST Problem: Adult Inpatient Plan of Care Goal: Plan of Care Review Outcome: Ongoing, Progressing Goal: Patient-Specific Goal (Individualized) Outcome: Ongoing, Progressing Goal: Absence of Hospital-Acquired Illness or Injury Outcome: Ongoing, Progressing Goal: Optimal Comfort and Wellbeing Outcome: Ongoing, Progressing Problem: Fall Injury Risk Goal: Absence of Fall and Fall-Related Injury Outcome: Ongoing, Progressing Problem: Anxiety Signs/Symptoms Goal: Optimized Energy Level (Anxiety Signs/Symptoms) Outcome: Ongoing, Progressing Goal: Optimized Cognitive Function (Anxiety Signs/Symptoms) Outcome: Ongoing, Progressing Goal: Improved Mood Symptoms (Anxiety Signs/Symptoms) Outcome: Ongoing, Progressing Goal: Improved Sleep (Anxiety Signs/Symptoms) Outcome: Ongoing, Progressing Goal: Enhanced Social, Occupational or Functional Skills (Anxiety Signs/Symptoms) Outcome: Ongoing, Progressing Goal: Improved Somatic Symptoms (Anxiety Signs/Symptoms) Outcome: Ongoing, Progressing Problem: Functional Deficit Goal: Improved Balance and Postural Control Outcome: Ongoing, Progressing Goal: Optimal Cognitive Function Outcome: Ongoing, Progressing Goal: Optimal Coordination Outcome: Ongoing, Progressing Goal: Improved Muscle Strength Outcome: Ongoing, Progressing Goal: Improved Muscle Tone Outcome: Ongoing, Progressing Goal: Optimal Range of Motion Outcome: Ongoing, Progressing Goal: Compensation for Sensory Deficit Outcome: Ongoing, Progressing * Significant Event - gT Morales APRN - 01/06/2025 10:18 AM EST Mr. White had no acute events overnight and is now progressive level of care without further critical care needs. [facility] will sign off. Thank you for allowing us to participate in the care of this patient. Please feel free to consult us for any further needs. * Progress Notes - Laura Muñiz LCSW - 01/06/2025 9:29 AM EST Transplant Social Work Progress Note Identifying Information: Patient Name: Orly White Date of : 1980 Clinical Summary: Txp SW is actively collaborating with the multidisciplinary team to support ongoing psychosocial needs. Per team, the patient continues to recover status post liver transplant performed on 01/03/25. Txp SW completed an in-person bedside visit for continued assessment of psychosocial needs. Psychosocial needs are assessed via open-ended questions to explore adjustment, coping mechanisms, and supports. Patient feeling better, tolerating clears, off O2. Patient/Caregiver Expressed Concerns Regarding: SW met with patient and at bedside. Patient has been sitting up in chair, has acute rehab rec's and agreeable to [facility]. reports she will be staying with patient. She had received a parking ticket for parking in a visitor spot and had been unable to get it voided. SW spoke with [employer] and provided patient's name and anticipated duration of hospitalization. Parking advised they voidedthe ticket and made a note. SW updated patient/. Supportive Counseling Provided Focused On: [x]Supportive counseling on coping with transplant emotions, transplant-related anxiety, and adjustment post-transplant []Caregiver roles and expectations [x]Coping with illness and medical complexity []Encouragement of coping strategies (journaling, mindfulness, relaxation) []Review of support systems and resource availability [x]Financial stressor support and housing assistance [x]Provided caregiver support and education [x]Supported patient in expressing concerns and questions to the transplant team to foster self-advocacy []Review of advanced directives [x]Reinforced housing and transportation plans upon discharge [x]Txp SW provided contact information and encouraged the patient and caregiver to reach out as needed Plan: Txp SW to continue monitoring psychosocial status throughout hospitalization Txp SW to provide ongoing supportive counseling and education Txp SW will continue to document any significant changes or interventions in follow-up notes Txp SW to maintain collaboration with the multidisciplinary team for post- transplant psychosocial needs SW submitted TFL application for gas card assistance on discharge. Laura Muñiz LCSW, [facility] Transplant Physicist [facility] * Progress Notes - Yari Quesada MD - 01/06/2025 8:30 AM EST Abdominal Transplant Surgery Progress Note Events of past 24 hours: Orly White is a 44yo male with a PMH of decompensated alcohol related cirrhosis, ascites, HE, SBP, depression, anxiety, GERD, and HTN who presents to [facility] on 01/02 for possible liver transplant. 01/03: OLT Interval: POD3. NAEON. Feeling better, tolerating CLD. AF, HDS, on 2L NC. UOP 790 (975). MOLLY 1095 (840) and 360 (70). Cr up-trending. LFTs and Tbili downtrending. CXR stable, improving. Edited by: Yari Quesada MD at 01/06/2025 0866 Review of Systems: 14-point ROS negative except as above in HPI. Last Recorded Vitals Blood pressure 138/77, pulse 65, temperature (!) 36 ??C (96.8 ??F), resp. rate 9, height 1.88 m (6'2.02 ), weight 112 kg (246 lb 14.6 oz), SpO2 91%. Output by Drain (mL) 01/04/25 07 - 01/04/25 1859 01/04/25 1900 - 01/05/25 0659 01/05/25 0700 - 01/05/25 1859 01/05/25 1900 - 01/06/25 0659 01/06/25 0700 - 01/06/25 0832 Closed/Suction Drain 1 Right;Ventral Abdomen Bulb 19 Fr. 360 480 600 495 75 Closed/Suction Drain 2 Left;Ventral Abdomen Bulb 19 Fr. 30 40 180 180 Physical Exam GENERAL: Alert, NAD EYES: PERRL, - scleral icterus HENT: head atraumatic and normocephalic NECK: No JVD noted. The trachea appears midline. RESP: Symmetric expansion; no retractions. CARD: RRR Extremities: -LE edema, no cyanosis or clubbing. GI: appropriately TTP, distended, firm to palpation. Incision c/d/I, JPx2 with sanguinous output with SS leakage. SKIN: No rash, sores, lesions or subcutaneous nodules. Jaundice. : Knight in place draining clear yellow urine NEURO: GCS 15, alert and oriented 3x Results: Labs in last 18 hours Labs are independently reviewed daily. CBC WBC 6.33 Hb 9.0 (L) Plt 47 (L) Hct 26.2 (L) ANC ?? INR 1.4 (H), PTT ??, Anti-Xa ?? BMP Na 129 (L) Cl 101 BUN 63 (H) Glu 101 (H) K 4.7 Co2 15 (L) Cr 2.22 (H) Ca 8.5 (L) iCa ?? Mg 2.6 (H), Phos 5.5 (H) Lactate ?? LFT AST 64 (H) AlkPhos 68 T Prot 5.3 (L) ALK 117 (H) Bili 4.1 (H) Alb ?? D.Bili ?? Coags: INR Date Value Ref Range Status 01/06/2025 1.4 (H) 0.9 - 1.1 Final Prothrombin Time Date Value Ref Range Status 01/06/2025 17.6 (H) 12.0 - 14.3 sec Final aPTT Date Value Ref Range Status 01/03/2025 48 (H) 25 - 35 sec Final Fibrinogen, Quantitative (Clottable) Date Value Ref Range Status 01/03/2025 134 (L) 208 - 459 mg/dL Final ABG: pH, Mixed Venous Date Value Ref Range Status 01/03/2025 7.31 (L) 7.32 - 7.43 Final pCO2, Mixed Venous Date Value Ref Range Status 01/03/2025 42 40 - 55 mmHg Final pO2, Mixed Venous Date Value Ref Range Status 01/03/2025 53 (H) 25 - 40 mmHg Final Base Excess, Mixed Venous Date Value Ref Range Status 01/03/2025 -5.1 (L) -2.0 - 3.0 mmol/L Final Bicarbonate, Calculated, Arterial Date Value Ref Range Status 01/03/2025 21 (L) 22 - 26 mmol/L Final Body Temperature Date Value Ref Range Status 01/03/2025 37.0 Celsius Final Lactate: Lactate, Arterial, Whole Blood Date Value Ref Range Status 01/03/2025 1.7 (H) 0.5 - 1.6 mmol/L Final Medications Current Scheduled Medications[1] Current Continuous Medications[2] Current PRN Medications[3] Imaging (past 24h): I personally visualized and interpreted all of the imaging studies below and I agree with formal interpretation. US Abdomen Focused Region Liver Result Date: 01/04/2025 1. Liver parenchyma is grossly unremarkable 2. Patent hepatic vasculature with appropriate flow directionality. CRITICAL RESULT: No. COMMUNICATION: Per this written report. Drafted by Keenan Shipley MD on 01/04/2025 11:39 AM Final report signed by Keenan Shipley MD on 01/04/2025 11:42 AM Assessment and Plan Medical Problems Problem List * (Principal) Decompensation of cirrhosis of liver (CMS/HCC) Tobacco use disorder, continuous Insomnia Anemia SBP (spontaneous bacterial peritonitis) Essential (primary) hypertension GERD (gastroesophageal reflux disease) Anxiety Thrombocytopenia (CMS/HCC) Hypotension Elevated INR Coagulopathy NINA (acute kidney injury) Abdominal distension [ ] INR < 2 [ ] Plt > 20 [ ] Hgb >8 [ ] MAP > 65 [ ] Hold subQH and asa [ ] if we need to add for HTN, add norvasc or nifedipine Orly White is a 44yo male with a PMH of decompensated alcohol related cirrhosis, ascites, HE, SBP, depression, anxiety, GERD, and HTN who presents to [facility] on 01/02 for possible liver transplant. Now s/p liver transplant on 01/03, recovering well. Extubated post-op 01/03 to ND. HDS off pressors.Hasn't required blood products for resuscitation in >24 hrs. Abdominal exam is stable. US Liver read as unremarkable with patent flow, liver function improving appropriately. Will continue to monitor renal function d/t NINA picture (decreasing UOP, increasing BUN and creatinine), will consider getting nephrology on board for assistance. Will advance diet as tolerated. Will continue to prioritize ambulation, nutrition, pain control. Neuro: GCS 15. [facility] - home escitalopram, wellbutrin; held home trazodone CV: HDS - on home coreg 12.5 mg BID Pulm: on NC; IS/PEP/PAP. CXR improving. GI: CLD -> regular today. - LFTs, Tbili downtrending - PPI BID :UOP 790 (975); Cr, BUN up-trending - lytes: Phos 5.9 (6.1), Mag 2.6 (2.6) - Na 132 (134, 136) ID: AF, WBCs 6.3 - fluconazole Heme: Hgb S, plts 47 (45, 48) - home ferrous sulfate Immunosuppression: cellcept 1000 mg BID, methylpred taper, fk 2/2 Diet: NPO GI reg: PPI LTD: CVC x3, PIV x2, 2x MOLLY drains, knight, a-line, > de-esscalate as able DVT ppx: SCDs, subQ heparin held Consults: CCM PT/OT: pending Dispo: pending Edited by: Yari Quesada MD at 01/06/2025 0832 Yari Quesada MD Department of Urology, PGY-1 Pager: [phone] [1] amLODIPine, 5 mg, Oral, Daily buPROPion SR, 150 mg, Oral, BID carvedilol, 25 mg, Oral, BID escitalopram, 10 mg, Oral, Daily ferrous sulfate, 324 mg, Oral, Daily with breakfast [START ON 01/07/2025] fluconazole, 200 mg, Oral, Daily insulin regular, 0-5 Units, Subcutaneous, q6h NICCI methocarbamol, 500 mg, Oral, 4x daily [START ON 01/08/2025] methylPREDNISolone sod suc (PF), 30 mg, Intravenous, Once [START ON 01/07/2025] methylPREDNISolone sod suc (PF), 60 mg, Intravenous, Once mycophenolate (Cellcept) 1,000 mg in dextrose 5 % 250 mL IVPB, 1,000 mg, Intravenous, BID mycophenolate, 1,000 mg, Oral, BID pantoprazole, 40 mg, Oral, Daily [START ON 01/09/2025] predniSONE, 5 mg, Oral, Daily with breakfast sodium chloride, 10 mL, Intravenous, q12h tacrolimus, 2 mg, Oral, BID (0600 & 1800) [2] [3] PRN medications: fentaNYL OR fentaNYL, hydrALAZINE OR hydrALAZINE, labetalol OR labetalol, ondansetron, oxyCODONE OR oxyCODONE, sodium chloride, sodium chloride, traZODone Cosigned by Maciel Olson MD at 01/06/2025 9:41 AM EST Associated attestation - Maciel Olson MD - 01/06/2025 9:41 AM EST I saw and evaluated the patient with the resident/fellow. I discussed the case with the resident/fellow and agree with the findings and plan as documented. Transplant type: OLT POD #3 24 events: none significant Neuro: GCS 15, AAOx3, pain controlled CV: no pressors. HTN improved. NSR. Resp: on 2 liters O2 NC. Pulmonary toilet. GI: advance to regular diet. Start bowel regimen. Passing gas. LFT's improving. /FEN: continues to have NINA with slightly worse creatinine. UOP 800cc urine output. Continue to observe. Hem/ID: H&H stable, no more blood transfusions. Platelets stable. Perioperative antibiotics completed. WBC normal. Endocrine: on ISS DVT prophylaxis: start subQ heparin BID, venodynes GI prophylaxis: yes Lines/drains: trialysis, jackie, knight, TLC. Molly's are still sanguinous. Immunosuppression: fk, mmf, steroids Transfer to floor Immunosuppression medications require regular monitoring to ensure that the patient is not experiencing any adverse effects as a result for the therapeutic agent. I have therefore managed the patient's immunosuppression medication listed in this note, addressed any toxic side effects and adjusted levels appropriately. I have also reviewed the patient's medications, dosages and have assessed the need to continue or discontinue any medications. List of medications below: Current Medications[1] [1] Current Facility-Administered Medications: amLODIPine (Norvasc) tablet 5 mg, 5 mg, Oral, Daily, Camilla Soto APRN, PATTI, 5 mg at 01/06/25 0812 buPROPion SR (Wellbutrin SR) 12 hr tablet 150 mg, 150 mg, Oral, BID, Félix Simmons APRN, PATTI, 150 mg at 01/06/25 0812 carvedilol (Coreg) tablet 25 mg, 25 mg, Oral, BID, Camilla Soto APRN, PATTI, 25 mg at 01/06/25 0812 escitalopram (Lexapro) tablet 10 mg, 10 mg, Oral, Daily, Félix Simmons APRN, DNP, 10 mg at 01/06/25 0812 fentaNYL (Sublimaze) injection 25 mcg, 25 mcg, Intravenous, q2h PRN, 25 mcg at 01/05/25 0913 ORfentaNYL (Sublimaze) injection 50 mcg, 50 mcg, Intravenous, q2h PRN, Camilla Soto APRN, DNP, 50 mcg at 01/05/25 0354 ferrous sulfate EC tablet 324 mg, 324 mg, Oral, Daily with breakfast, Félix Simmons APRN,PATTI, 324 mg at 01/06/25 0812 [START ON 01/07/2025] fluconazole (Diflucan) tablet 200 mg, 200 mg, Oral, Daily, Maciel Olson MD hydrALAZINE (Apresoline) injection 10 mg, 10 mg, Intravenous, q1h PRN, 10 mg at 01/03/25 1708 OR hydrALAZINE (Apresoline) injection 20 mg, 20 mg, Intravenous, q1h PRN, Camilla Soto APRN, DNP, 20 mg at 01/06/25 0725 insulin regular (HumuLIN R,NovoLIN R) 100 units/mL injection - Correction - Standard Dose, 0-5 Units, Subcutaneous, q6h [facility], Negro Cr MD labetalol (Normodyne,Trandate) injection 10 mg, 10 mg, Intravenous, q1h PRN, 10 mg at 01/04/252008OR labetalol (Normodyne,Trandate) injection 20 mg, 20 mg, Intravenous, q1h PRN, Camilla Soto APRN, DNP, 20 mg at 01/05/25 1010 methocarbamol (Robaxin) tablet 500 mg, 500 mg, Oral, 4x daily, Cheryl Choi MD, 500 mg at 01/06/25 0812 [START ON 01/08/2025] methylPREDNISolone sodium succinate (PF) (SOLU-Medrol) injection 30 mg, 30 mg, Intravenous, Once, Negro Cr MD [START ON 01/07/2025] methylPREDNISolone sodium succinate (PF) (SOLU-Medrol) injection 60 mg, 60 mg, Intravenous, Once, Negro Cr MD mycophenolate (Cellcept) 1,000 mg in dextrose 5 % 250 mL IVPB, 1,000 mg, Intravenous, BID, Maciel Olson MD, Last Rate: 152.5 mL/hr at 01/05/252018, 1,000 mg at 01/05/252018 mycophenolate (Cellcept) capsule 1,000 mg, 1,000 mg, Oral, BID, Maciel Olson MD ondansetron (Zofran) injection 4 mg, 4 mg, Intravenous, q6h PRN, Negro Cr MD, 4 mg at 01/04/25 1722 oxyCODONE (Roxicodone) immediate release tablet 5 mg, 5 mg, Oral, q6h PRN OR oxyCODONE (Roxicodone) immediate release tablet 10 mg, 10 mg, Oral, q6h PRN, Kathy Jiang APRN, DNP, 10 mg at 01/05/25 2206 pantoprazole (Protonix) EC tablet 40 mg, 40 mg, Oral, Daily, Camilla Soto APRN, DNP, 40 mg at 01/06/25 0812 [START ON 01/09/2025] predniSONE (Deltasone) tablet 5 mg, 5 mg, Oral, Daily with breakfast, Negro Cr MD sodium chloride 0.9 % flush 10 mL, 10 mL, Intravenous, q12h, Camilla Soto APRN, PATTI, 10 mL at 01/06/25 0427 sodium chloride 0.9 % flush 10 mL, 10 mL, Intravenous, q1h PRN, Camilla Soto APRNPATTI sodium chloride 0.9 % flush 20 mL, 20 mL, Intravenous, q1h PRN, Camilla Soto APRN, DNP tacrolimus (Prograf) capsule 2 mg, 2 mg, Oral, BID (0600 & 1800), Cheryl Choi MD, 2 mgat 01/06/25 0600 traZODone (Desyrel) tablet 50 mg, 50 mg, Oral, Nightly PRN, Camilla Soto APRN, DNP, 50 mg at 01/04/252108 * Consults - Camilla Mendez APRN - 01/05/2025 2:06 PM ESTAssociated Order(s): IP CONSULT TO PHYSICAL MEDICINE REHAB PHYSICAL MEDICINE & REHABILITATION INPATIENT CONSULT NOTE Patient: Orly White : 1980 PCP: Param Eng DO at [address] / [place] [address] Payor: [facility] / Plan: [place] [employer] / Product Type: *No Product type* / Date of Service: 01/05/25 cc: Decompensation of cirrhosis of liver (CMS/HCC) Reason for Consultation: functional evaluation History of Present Illness: Orly White is a 44 y.o. male w/PMH of anxiety/depression, GERD, HTN, and decompensated alcohol cirrhosis c/b ascites, HE, and SBP who presented to on 01/02/2025 (LOS: 3d) for possible liver transplant. He underwent OLT 01/03/25 and was extubated same day. His post- operative course has been complicated by acute blood loss anemia requiring transfusion, AHRF and NINA. PMR was consulted for functional evaluation. On exam pt is lying in bed. He is alert and conversant. His mother and are present at bedside.He reports, I feel 100 times better. No BM since he had surgery. Has had some issues with HTN, meds being adjusted. Pt reports that he had a therapy session today. Stated he was told he did well. C/O tremor. PMH: Past Medical History[1] PSH: Surgical History[2] Allergies: Allergies[3] Home Medications: Current Outpatient Medications Medication Instructions buPROPion SR [...] chew, or split. furosemide (LASIX) 20 mg, Daily lactulose (CHRONULAC) 10 g, Oral, 3 times daily Multiple Vitamins-Minerals (Mens Multi Health Formula) tablet Take by mouth. mycophenolate (CELLCEPT) 1,000 mg, Oral, 2 times daily, Z94.4. Txp Date: 01/03/25 nutrional drink glucose control (Boost Glucose Control) liquid liquid 237 mL, Oral, 2 times daily pantoprazole (PROTONIX) 40 mg, Oral, 2 times daily, Do not crush, chew, or split. rifAXIMin (XIFAXAN) 550 mg, Oral, 2 times daily spironolactone (ALDACTONE) 50 mg, Daily tacrolimus (PROGRAF) 2 mg, Oral, 2 times daily (0600 & 1800), Z94.4. transplant date 01/03/25 traZODone (DESYREL) 50 mg, Oral, Nightly valGANciclovir (VALCYTE) 450 mg, Oral, Daily, Do not crush or chew. 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 Consults: GI, transplant, PMR Precautions: falls, infection Procedures: OLT 01/03/25 OBJECTIVE: Labs: Lab Results Component Value Date WBC 8.36 01/05/2025 WBC 8.94 01/05/2025 WBC 8.52 01/05/2025 HGB 8.9 (L) 01/05/2025 HGB 8.8 (L) 01/05/2025 HGB 7.8 (L) 01/05/2025 HCT 25.9 (L) 01/05/2025 MCV 89 01/05/2025 PLT 44 (L) 01/05/2025 PLT 48 (L) 01/05/2025 PLT 48 (L) 01/05/2025 Lab Results Component Value Date NA 136 01/05/2025 NA 134 (L) 01/05/2025 NA 138 01/04/2025 K 4.7 01/05/2025 K 4.6 01/05/2025 K 4.6 01/04/2025 CL 106 01/05/2025 CL 105 01/05/2025 CL 107 01/04/2025 BUN 49 (H) 01/05/2025 BUN 44 (H) 01/05/2025 BUN 36 (H) 01/04/2025 CREATININE 1.90 (H) 01/05/2025 CREATININE 1.84 (H) 01/05/2025 CREATININE 1.73 (H) 01/04/2025 CALCIUM 8.8 (L) 01/05/2025 CALCIUM 8.5 (L) 01/05/2025 CALCIUM 8.5 (L) 01/04/2025 GLUCOSE 103 (H) 01/05/2025 GLUCOSE 134 (H) 01/05/2025 GLUCOSE 126 (H) 01/04/2025 GLUCOSE 130 (H) 01/04/2025 GLUCOSE 163 (H) 01/03/2025 Lab Results Component Value Date ALT 138 (H) 01/05/2025 ALT 161 (H) 01/05/2025 ALT 178 (H) 01/04/2025 AST 110 (H) 01/05/2025 AST 150 (H) 01/05/2025 AST 210 (H) 01/04/2025 GGT 32 10/20/2024 ALKPHOS 61 01/05/2025 ALKPHOS 68 01/05/2025 ALKPHOS 69 01/04/2025 BILITOT 5.4 (H) 01/05/2025 BILITOT 5.2 (H) 01/05/2025 BILITOT 5.4 (H) 01/04/2025 Lab Results Component Value Date HGBA1C <4.0 10/21/2024 Cultures: Results Procedure Component Value Units Date/Time Multi Drug Resistance Test [[id number]] Collected: 01/03/25 1609 Order Status: Completed Specimen: Swab from Nares and Lauren Rectal Updated: 01/05/25 0536 Culture No growth at day 1 Narrative: This test was developed and its performance characteristics determined by the [facility]. Although the media is FDA-approved, it is not FDA-approved for all specimen types submitted. The FDA has determined that such clearance or approval is not necessary. This test is used for surveillance purposes. It should not be regarded as investigational or for research. The [facility] is certified under the ClinicalLaboratory Improvement Amendments of 1988 (CLIA-88) as qualified to perform high complexity clinical laboratory testing. Tylor auris Surveillance by PCR [[id number]] (Normal) Collected: 01/03/25 1609 Order Status: Completed Specimen: Swab from Axilla and Groin Updated: 01/04/25 1152 Tylor auris PCR Result Not Detected Narrative: This PCR assay was developed and its performance characteristics determined by [facility] as appropriate for clinical purposes. This assay has not been cleared or approved bythe FDA, but is performed in a CLIA regulated laboratory that is qualified to perform high-complexity testing. Imaging reports reviewed: No MRI head results found for the past [address] head results found for the past 14 days Encounter Date: 12/17/24 ECG Adult Result Value EKG DIAGNOSIS CLASS Abnormal Ventricular Rate 66 Atrial Rate 66 GA Interval 178 QRSD Interval 88 QT Interval 474 QTC Interval 496 P [place] 45 R [place] 29 T Wave [place] 19 Diagnosis Normal sinus rhythm Diagnosis QTcB >= 480 msec Diagnosis Abnormal ECG Diagnosis Diagnosis Confirmed by Jeff Worthington ([id number]) on 12/18/2024 10:06:13 AM *Note: Due to a large number of results and/or encounters for the requested time period, some results have not been displayed. A complete set of results can be found in Results Review. Current diet (full): Dietary Orders (From admission, onward) Start Ordered 01/05/25 1259 Adult diet Diet texture: Clear liquid; Other restriction(s): Solid Organ Transplant Adult Diet effective now References: IDDSI Diet Texture Guide Question Answer Comment Diet texture Clear liquid Other restriction(s): Solid Organ Transplant Adult 01/05/25 1258 PHYSICAL EXAM Visit Vitals BP (!) 154/83 Pulse 69 Temp (!) 35.6 ??C (96.1 ??F) Ht 1.88 m (6' 2.02 ) Wt (S) 112 kg (246 lb 4.1 oz) Comment: subtracted 13 kg from bed weight due to bed channel turner SpO2 97% BMI 31.60 kg/m?? Gen: NAD, reclining in bed Eyes: + scleral icterus, pupils round and symmetric Neck: supple, no tracheostomy ENT: nares patent, mucous membranes moist CV: regular rate, no BLE edema Resp: nonlabored breathing, no wheezing GI: abd soft, NTTP, +BS, -r/g, wearing binder : +knight Skin: warm, dry, jaundiced, lines in B/L neck, +drain X2, right with bloody gauze present Heme/lymph/immune: no bruising, no lymphadenopathy Psychiatric: good judgement, good insight MSK: - BUE strength 4/5 - BLE strength 3/5 - AROM throughout Neurological: awake and alert, participating in conversation, speech fluent CN II-XII intact sensation intact to light touch I reviewed [facility] notes I reviewed patient labs and vitals Future Appointments Date Time Provider Department Center 03/06/2025 To Be Determined [facility] ENDO 2 ENDOGSHS [facility] Mobility Orders Mobility Protocol: General - Mobility Guidelines Extremity Precautions: No Extremity Precautions Other mobility precautions: No other precautions required ASSESSMENT/PLAN: Orly White is a 44 y.o. male w/PMH of anxiety/depression, GERD, HTN, and decompensated alcohol cirrhosis c/b ascites, HE, and SBP who presented to on 01/02/2025 (LOS: 3d) for possible liver transplant. - hx decompensated alcohol cirrhosis c/b ascites, HE, and SBP s/p OLT 01/03/25 - immunosuppression - transplant following - acute blood loss anemia requiring transfusions, stable - AHRF - on supplemental O2 via NC - wean as patient tolerates - NINA, worsening - functional decline - gait impairment - ADL impairment - anxiety - depression - GERD - HTN Recommendations: Dispo: Pending progress Current barriers to discharge: - monitor vitals (temp. and HTN) - pending possible OR for washout - stabilization of H/H and NINA - stable off IV medications, including PRN IV medications Thank you for allowing us to participate in the care of your patient. We will continue to follow. Please page [phone] with any questions, or resident on-call if after hours or on weekends. Camilla Mendez, TITA Physical Medicine & Rehabilitation [1] Past Medical History: Diagnosis Date Anxiety Ascites Cirrhosis (CMS/HCC) Depression Enterocolitis due to Clostridium difficile, not specified as recurrent 11/04/2024 Esophageal varices GERD (gastroesophageal reflux disease) Hepatic encephalopathy (CMS/HCC) Hypertension Patient on waiting list for liver transplant 12/30/2024 SBP (spontaneous bacterial peritonitis) Tobacco use disorder [2] Past Surgical History: Procedure Laterality Date VASECTOMY [3] Allergies Allergen Reactions Amoxicillin Hives and Rash Childhood allergy [4] [5] buPROPion SR, 150 mg, Oral, BID carvedilol, 25 mg, Oral, BID escitalopram, 10 mg, Oral, Daily ferrous sulfate, 324 mg, Oral, Daily with breakfast fluconazole, 200 mg, Intravenous, q24h insulin regular, 0-5 Units, Subcutaneous, q6h NICCI methocarbamol, 500 mg, Oral, 4x daily [START ON 01/06/2025] methylPREDNISolone sod suc (PF), 100 mg, Intravenous, Once [START ON 01/08/2025] methylPREDNISolone sod suc (PF), 30 mg, Intravenous, Once [START ON 01/07/2025] methylPREDNISolone sod suc (PF), 60 mg, Intravenous, Once mycophenolate (Cellcept) 1,000 mg in dextrose 5 % 250 mL IVPB, 1,000 mg, Intravenous, BID pantoprazole, 40 mg, Oral, Daily phytonadione, 10 mg, Intravenous, q24h [START ON 01/09/2025] predniSONE, 5 mg, Oral, Daily with breakfast sodium chloride, 10 mL, Intravenous, q12h tacrolimus, 2 mg, Oral, BID (0600 & 1800) [6] fentaNYL, 25 mcg, Intravenous, q2h PRN OR fentaNYL, 50 mcg, Intravenous, q2h PRN hydrALAZINE, 10 mg, Intravenous, q1h PRN OR hydrALAZINE, 20 mg, Intravenous, q1h PRN labetalol, 10 mg, Intravenous, q1h PRN OR labetalol, 20 mg, Intravenous, q1h PRN ondansetron, 4 mg, Intravenous, q6h PRN oxyCODONE, 5 mg, Oral, q6h PRN OR oxyCODONE, 10 mg, Oral, q6h PRN sodium chloride, 10 mL, Intravenous, q1h PRN sodium chloride, 20 mL, Intravenous, q1h PRN traZODone, 50 mg, Oral, Nightly PRN [7] No family history on file. * Progress Notes - Mariela Kwon RN - 01/05/2025 12:39 PM EST spar finisher rounded with MD Olson and members of Txp team this AM. Pt in bed, alert and interactive. Oxygen per nasal cannula at time of visit. Concern for transfusion over past 24 hrs. Team will follow H and H closely. Per pt drains less bloody this AM. Discussion concerning HTN. Meds to be adjusted if needed. PT/OT recommending acute rehab. Referral to [facility]. PM and R aware of need for consult. Pt not medically cleared for hospital discharge this date. * Assessment & Plan Note - Camilla Soto APRN, PATTI - 01/05/2025 11:13 AM EST Associated Problem(s): Decompensation of cirrhosis of liver (CMS/HCC) Hx of ETOH cirrhosis c/b ascites, HE, EV, SBP S/p OLT Pre-Op MELD 27 Transfused 8uPRBC, 8uFFP, 1uPlt, 500mL Albumin, 5L Crystalloid intra-op; ascites ~ 1.5L & EBL 4.8L Drains per primary Continue abx Anti-rejection and immunosuppressive medications per primary * Assessment & Plan Note - Camilla Soto APRN, DNP - 01/05/2025 11:13 AM EST Associated Problem(s): Tobacco use disorder, continuous Continue home Wellbutrin * Assessment & Plan Note - Camilla Soto APRN, DNP - 01/05/2025 11:13 AM EST Associated Problem(s): Insomnia Continue home trazodone PRN * Assessment & Plan Note - Camilla Soto APRN, DNP - 01/05/2025 11:13 AM EST Associated Problem(s): Anemia Lab Results Component Value Date HGB 8.8 (L) 01/05/2025 , Lab Results Component Value Date HCT 25.5 (L) 01/05/2025 Received 2u PRBC overnight Transfuse as appropriate for Hgb>8 and INR<2 Continue vitamin K Will continue to trend * Assessment & Plan Note - Camilla Soto APRN, DNP - 01/05/2025 11:13 AM EST Associated Problem(s): Elevated INR Lab Results Component Value Date HGB 8.8 (L) 01/05/2025 , Lab Results Component Value Date HCT 25.5 (L) 01/05/2025 Received 2u PRBC overnight Transfuse as appropriate for Hgb>8 and INR<2 Continue vitamin K Will continue to trend * Assessment & Plan Note - Camilla Soto APRN, DNP - 01/05/2025 11:13 AM EST Associated Problem(s): Coagulopathy Lab Results Component Value Date HGB 8.8 (L) 01/05/2025 , Lab Results Component Value Date HCT 25.5 (L) 01/05/2025 Received 2u PRBC overnight Transfuse as appropriate for Hgb>8 and INR<2 Continue vitamin K Will continue to trend * Assessment & Plan Note - Camilla Soto APRN, DNP - 01/05/2025 11:13 AM EST Associated Problem(s): SBP (spontaneous bacterial peritonitis) Hx of On prophylactic cipro prior to translant * Assessment & Plan Note - Camilla Soto APRN, DNP - 01/05/2025 11:13 AM EST Associated Problem(s): Essential (primary) hypertension Increased coreg to 25mg BID PRN labetalol and hydralazine for SBP>160 * Assessment & Plan Note - Camilla Soto APRN, DNP - 01/05/2025 11:13 AM EST Associated Problem(s): GERD (gastroesophageal reflux disease) Continue home PPI * Assessment & Plan Note - Camilla Soto APRN, DNP - 01/05/2025 11:13 AM EST Associated Problem(s): Anxiety Continue home Lexapro * Assessment & Plan Note - Camilla Soto APRN, DNP - 01/05/2025 11:13 AM EST Associated Problem(s): Thrombocytopenia (CMS/HCC) Plt count 61 postop Plt 48 today Transfuse for plt>20 Will continue to monitor * Assessment & Plan Note - Camilla Soto APRN, DNP - 01/05/2025 11:13 AM EST Associated Problem(s): NINA (acute kidney injury) Baseline Cr ~0.8 Creatinine, Plasma Date Value Ref Range Status 01/05/2025 1.90 (H) 0.70 - 1.20 mg/dL Final Consider renal U/S as appropriate Monitor renal function daily Avoid nephrotoxins, avoid NSAIDs, renally dose medications * Assessment & Plan Note - Camilla Soto APRN, DNP - 01/05/2025 11:13 AM EST Associated Problem(s): Abdominal distension Abdomen remains taut but bowel sounds present and patient reports passing flatus Total of 910mL sanguinous drainage via MOLLY drains over past 24hr Continue to perform serial abdominal exams Keep NPO for possible return to OR for washout per txp team * Progress Notes - Camilla Soto APRN, DNP - 01/05/2025 11:03 AM ESTAssociated Order(s): Critical Care Post-Procedure Diagnose(s): Decompensation of cirrhosis of liver (CMS/HCC) Critical Care Performed by: Camilla Soto APRN, DNP Authorized by: Camilla Soto APRN, DNP Critical care provider statement: Critical care time (minutes): 70 Critical care time was exclusive of: Separately billable procedures and treating other patients Critical care was time spent personally by me on the following activities: Development of treatment plan with patient or surrogate, discussions with consultants, discussions with primary provider, evaluation of patient's response to treatment, examination of patient, ordering and performing treatments and interventions, ordering and review of laboratory studies and ordering and review of radiographic studies 01/05/25 Orly White HPI Orly White is a 44 y.o. male who presents with Decompensation of cirrhosis of liver (CMS/HCC). Past 24 hours: Overnight received 2u PRBC for Hgb<8. Hgb 8.8 now. Patient this AM on 2L NC. Remains hypertensive requiring multiple doses of PRN hydralazine and labetalol. Increased scheduled coreg to 25mg. Abdomen remains taut with continued sanguinous drainage via MOLLY drains. However, patient reports passing flatus this morning. Bowel sounds present. Will hold off on starting bowel regimen or diet as txp team is still considering whether or not patient will need to return to OR for washout. Family at bedside and updated on plan of care. Lines/Drains/Tubes: Patient Lines/Drains/Airways Status Active Active LDAs Name Placement date Placement time Site Days CVC Double Lumen 01/03/25 Right Internal jugular 01/03/25 0730 Internal jugular 2 CVC Triple Lumen 01/03/25 Right Internal jugular 01/03/25 0730 Internal jugular 2 CVC Triple Lumen 01/03/25 Left Subclavian 01/03/25 0730 Subclavian 2 Peripheral IV 01/02/25 Left;Posterior Wrist 01/02/25 1000 Wrist 3 Peripheral IV 01/03/25 Right;Posterior Hand 01/03/25 0730 Hand 2 Closed/Suction Drain 1 Right;Ventral Abdomen Bulb 19 Fr. 01/03/25 1317 Abdomen 1 Closed/Suction Drain 2 Left;Ventral Abdomen Bulb 19 Fr. 01/03/25 1318 Abdomen 1 Urethral Catheter Single lumen;Temperature probe 16 Fr. 01/03/25 0720 -- 2 Arterial Line 01/03/25 Right Radial 01/03/25 0810 Radial 2 GCS: [place] Coma Scale Score: 15 Review of Systems Constitutional: Negative for chills and fever. HENT: Negative for congestion. Eyes: Negative for visual disturbance. Respiratory: Negative for cough and shortness of breath. Cardiovascular: Negative for chest pain. Gastrointestinal: Positive for abdominal distention. Negative for nausea and vomiting. Genitourinary: Negative for difficulty urinating. Musculoskeletal: Negative for arthralgias. Neurological: Negative for dizziness and headaches. Psychiatric/Behavioral: Negative for confusion. Vital signs: Vitals: 01/05/25 1030 BP: Pulse: 67 Resp: 18 Temp: (!) 35.8 ??C (96.4 ??F) SpO2: 95% Intake/Output Summary (Last 24 hours) at 01/05/2025 1103 Last data filed at 01/05/2025 1010 Gross per 24 hour Intake 7984.27 ml Output 2155 ml Net 5829.27 ml Physical Exam: Sedation was held for the purposes of examination. Physical Exam Constitutional: Appearance: He is ill-appearing. HENT: Head: Normocephalic. Nose: Nose normal. Mouth/Throat: Pharynx: Oropharynx is clear. Eyes: Pupils: Pupils are equal, round, and reactive to light. Cardiovascular: Rate and Rhythm: Normal rate and regular rhythm. Pulses: Normal pulses. Radial pulses are 2+ on the right side and 2+ on the left side. Dorsalis pedis pulses are 2+ on the right side and 2+ on the left side. Heart sounds: Normal heart sounds. Pulmonary: Effort: Pulmonary effort is normal. Breath sounds: Normal breath sounds. Abdominal: General: Bowel sounds are normal. There is distension. Palpations: Abdomen is soft. Comments: Surgical incision from OLT; CDI; JPx2 Genitourinary: Comments: FC in place Musculoskeletal: Right lower leg: Edema present. Left lower leg: Edema present. Skin: General: Skin is warm and dry. Capillary Refill: Capillary refill takes 2 to 3 seconds. Neurological: Mental Status: He is alert and oriented to person, place, and time. GCS: GCS eye subscore is 4. GCS verbal subscore is 5. GCS motor subscore is 6. Results Review I have reviewed the latest lab and imaging results. Assessment and Plan: This patient is critically ill. Assessment & Plan Decompensation of cirrhosis of liver (CMS/HCC) Present on Admission: Yes Hx of ETOH cirrhosis c/b ascites, HE, EV, SBP S/p OLT Pre-Op MELD 27 Transfused 8uPRBC, 8uFFP, 1uPlt, 500mL Albumin, 5L Crystalloid intra-op; ascites ~ 1.5L & EBL 4.8L Drains per primary Continue abx Anti-rejection and immunosuppressive medications per primary Tobacco use disorder, continuous Present on Admission: Yes Continue home Wellbutrin Insomnia Present on Admission: Yes Continue home trazodone PRN Anemia Present on Admission: Yes Elevated INR Present on Admission: Unknown Coagulopathy Present on Admission: Unknown Lab Results Component Value Date HGB 8.8 (L) 01/05/2025 , Lab Results Component Value Date HCT 25.5 (L) 01/05/2025 Received 2u PRBC overnight Transfuse as appropriate for Hgb>8 and INR<2 Continue vitamin K Will continue to trend SBP (spontaneous bacterial peritonitis) Present on Admission: Yes Hx of On prophylactic cipro prior to translant Essential (primary) hypertension Present on Admission: Yes Increased coreg to 25mg BID PRN labetalol and hydralazine for SBP>160 GERD (gastroesophageal reflux disease) Present on Admission: Yes Continue home PPI Anxiety Present on Admission: Yes Continue home Lexapro Thrombocytopenia (CMS/HCC) Present on Admission: Yes Plt count 61 postop Plt 48 today Transfuse for plt>20 Will continue to monitor NINA (acute kidney injury) Present on Admission: Unknown Baseline Cr ~0.8 Creatinine, Plasma Date Value Ref Range Status 01/05/2025 1.90 (H) 0.70 - 1.20 mg/dL Final Consider renal U/S as appropriate Monitor renal function daily Avoid nephrotoxins, avoid NSAIDs, renally dose medications Abdominal distension Present on Admission: Unknown Abdomen remains taut but bowel sounds present and patient reports passing flatus Total of 910mL sanguinous drainage via MOLLY drains over past 24hr Continue to perform serial abdominal exams Keep NPO for possible return to OR for washout per txp team Camilla Soto APRN, DNP * Progress Notes - Laura Muñiz LCSW - 01/05/2025 10:11 AM EST Transplant Social Work Progress Note Identifying Information: Patient Name: Orly White Date of : 1980 Clinical Summary: Txp SW is actively collaborating with the multidisciplinary team to support ongoing psychosocial needs. Per team, the patient continues to recover status post liver transplant performed on 01/03/25. Txp SW completed an in-person bedside visit for continued assessment of psychosocial needs. Psychosocial needs are assessed via open-ended questions to explore adjustment, coping mechanisms, and supports. at bedside, patient extubated and about to work with PT/OT. Patient alert/oriented and reports patient may go to OR today for washout. Labs improving, de-escalate lines. Patient/Caregiver Expressed Concerns Regarding: No immediate concerns noted. Patient ready to participate with therapy. Discussed rehab briefly. Supportive Counseling Provided Focused On: [x]Supportive counseling on coping with transplant emotions, transplant-related anxiety, and adjustment post-transplant []Caregiver roles and expectations [x]Coping with illness and medical complexity []Encouragement of coping strategies (journaling, mindfulness, relaxation) []Review of support systems and resource availability []Financial stressor support and housing assistance []Provided caregiver support and education [x]Supported patient in expressing concerns and questions to the transplant team to foster self-advocacy []Review of advanced directives []Reinforced housing and transportation plans upon discharge [x]Txp SW provided contact information and encouraged the patient and caregiver to reach out as needed Plan: Txp SW to continue monitoring psychosocial status throughout hospitalization Txp SW to provide ongoing supportive counseling and education Txp SW will continue to document any significant changes or interventions in follow-up notes Txp SW to maintain collaboration with the multidisciplinary team for post- transplant psychosocial needs Laura Muñiz LCSW, [facility] Transplant Physicist [facility] * Progress Notes - Armida Joyce - 01/05/2025 9:46 AM EST OCCUPATIONAL THERAPY EVALUATION Note to patient: The 21st Century Cures Act makes medical notes like these available to patients inthe interest of transparency. However, be advised this is a medical document. It is intended as peer to peer communication. It is written in medical language and may contain abbreviations or verbiagethat are unfamiliar. It may appear blunt or direct. Medical documents are intended to carry relevant information, facts as evident, and the clinical opinion of the practitioner. PATIENT DATA Patient Name Orly HALLN [id number] Session Date 01/05/2025 Total Time 44 minutes OT Discharge Recommendations Acute rehab Equipment Recommendations Rolling walker Discharge Transportation Recommendations Wheelchair transport van/shuttle HISTORY Orly White is 44 y.o. male admitted 01/02/2025 for work-up of Decompensation of cirrhosisof liver (CMS/HCC). Hospital Course 1. Decompensation of cirrhosis of liver (CMS/HCC) 2. Liver replaced by transplant Procedures (if applicable) 01/03/2025 Procedure(s): TRANSPLANT, LIVER Past Medical History Patient has a past medical history of Anxiety, Ascites, Cirrhosis (CMS/HCC), Depression, Enterocolitis due to Clostridium difficile, not specified as recurrent (11/04/2024), Esophageal varices, GERD (gastroesophageal reflux disease), Hepatic encephalopathy (CMS/HCC), Hypertension, Patient on waiting list for liver transplant (12/30/2024), SBP (spontaneous bacterial peritonitis), and Tobacco use disorder. Past Surgical History Patient has a past surgical history that includes Vasectomy. PRECAUTIONS Mobility Guidelines Mobility Protocol: General - Mobility Guidelines Extremity Precautions: No Extremity Precautions Other mobility precautions: No other precautions required Weight Bearing Precautions (if applicable) ROM Restrictions (if applicable) Medical Precautions Medical Precautions: Post-Surgical precautions, Fall precautions Post-Surgical Precautions: Abdominal: no lifting >10# SUBJECTIVE PARTICIPANTS IN CARE Patient/Caregiver Comments Patient agreeable to OT evaluation. Motivated and engaged throughout session. Visitors Present Spouse, Mother Dining Room Attendant Cafeteria (if applicable) PRESENTATION Oxygen Supplemental oxygen Nasal cannula 2 L/min Telemetry Yes Lines and Tubes Arterial Line 01/03/25 Right Radial (Active) CVC Double Lumen 01/03/25 Right Internal jugular (Active) CVC Triple Lumen 01/03/25 Right Internal jugular (Active) CVC Triple Lumen 01/03/25 Left Subclavian (Active) Closed/Suction Drain 1 Right;Ventral Abdomen Bulb 19 Fr. (Active) Closed/Suction Drain 2 Left;Ventral Abdomen Bulb 19 Fr. (Active) Urethral Catheter Single lumen;Temperature probe 16 Fr. (Active) Peripheral IV 01/02/25 Left;Posterior Wrist (Active) Peripheral IV 01/03/25 Right;Posterior Hand (Active) Pre-Session Supine, Head of bed elevated, Lines intact RN consenting to OT treatment. Post-Session Sitting in chair, RN notified, Lines intact, Call light in reach Patient requesting rest break from SCDs while up in chair; chair alarm pad in place however no alarm box available; RN made aware All needs met upon close of session. Bracing (if applicable) HOME LIVING/SET-UP Lives With Spouse ( Patricia and 29 year old son) Home Type House Home Equipment Rollator Home Layout One level, Stairs to enter without rails (with basement, but patient does nothave to travel to basement level) Number of Stairs: 4 Bathroom Layout Tub/Shower combo Bathroom: Toilet: Standard Accessible via walker Additional Comments Patient had been to [facility] in September, and was still receiving outpatient PT. PRIOR LEVEL OF FUNCTION Receives help from Spouse Level of Mobility Ambulatory- household only Mobility [place] Independent gait without device History of Falls Yes (mechanical falls- balancing during dressing and fall from bed level) ADL Performance ADL Performance: Needs assistance Bathing: Needs assist (had difficulty transferring out of tub) Upper Body Dressing: Independent Lower Body Dressing: Needs assist (with shoes and socks due to edema) Grooming: Independent Toileting: Independent Eating: Independent Home Management Skills: Independent PATIENT/FAMILY GOALS Patient would like to return home when able OBJECTIVE PAIN 4/10 pain at rest, increased to 7-8/10 with mobility Pain management addressed by the following: * pt was positioned for comfort * pressure relief and postural alignment was achieved via positioning assist *pt was pre-medicated for session *abdominal binder implemented for pain relief and support during mobility DELIRIUM SCREENING RASS: Alert and calm Confusion Assessment Method-ICU (CAM-ICU/PCAM-ICU) Feature 3: Altered Level of Consciousness: Negative COGNITION Overall Cognitive Status Within Functional Limits Arousal/Alertness Appropriate responses to stimuli Mood/Behavior Alert Orientation Oriented X4 Command Following Single Step Commands: Consistently, 100% of the time Multi- Step Commands: Consistently, 100% of the time Method of Communication Verbal Additional Observations VISION Baseline Vision Current Vision (if different) Patient Visual Report: no acute visual changes Current Vision: Intact RIGHT UPPER EXTREMITY EXAMINATION Range of Motion Within Functional Limits Manual Muscle Testing Within functional limits Light Touch Sensation Intact LEFT UPPER EXTREMITY EXAMINATION Range of Motion Within Functional Limits Manual Muscle Testing Within functional limits Light Touch Sensation Intact RIGHT LOWER EXTREMITY EXAMINATION Range of Motion Within Functional Limits Manual Muscle Testing Within functional limits Light Touch Sensation Mild impairment (tingling in toes and bottoms of feet) LEFT LOWER EXTREMITY EXAMINATION Range of Motion Within Functional Limits Manual Muscle Testing Within functional limits Light Touch Sensation Mild impairment (tingling in toes and bottoms of feet) INTERVENTIONS SELF-CARE Treatment Minutes 29 Comments Pt benefited from skilled occupational therapy interventions including: Monitoring of vitals to ensure activity tolerance: In response to reports of dizziness during mobility manual BP obtained. 176/96 (MAP 118) pre session, 149/88 (MAP 104) following bed chair transfer. MIN verbal and tactile cues to facilitate sequencing and proper body mechanics during functional tasks Provision of increased time frames to support optimal level of pt participation Task/activity modification with grading as needed to achieve safety while also providing appropriate functional challenge Skilled organization and management of medical lines/tubes to reduce fall risk with mobility aspects of ADLs Environmental set-up to ensure safety and accessibility to all needed areas of treatment space Level of [place] Interventions: Grooming Minimum assistance Chair level Simulated activity at chair level demo'ing UE edema and multiple medical lines/tubes impacting dexterity and hand use for tasks such as grooming/self-care Bathing UE Bathing Level of Assistance: Moderate assistance LE Bathing Level of Assistance: Maximumassistance Based on clinical judgement and observation of functional performance, pt would require increased assist to complete seated bathing due to decreased functional endurance, impaired balance and limitedfunctional reach as demo'd during this treatment; bathing not directly performed due to post-op status, incisions and medical lines/tubes. Upper Body Dressing Moderate assistance Chair level Cues provided for sequencing UE movements to don hospital gown as robe; patient experiencing increased pain when maintaining unsupported sitting position during task. Lower Body Dressing Sock Level of Assistance: Dependent Bed level Lower-body dressing (donning socks) was completed at bed level secondary to medical and post-operative complexity, with the goal of energy conservation, pain reduction, and progression toward optimal functional mobility. With therapist-provided verbal and tactile cueing, the patient demons trated the ability to partially lift heels partially from the bed surface to allow access to the feet for sock donning. Toileting Maximum assistance Other (Comment) (preparatory intervention) Preparatory toileting intervention was completed using a simulated qch-gu-[id number]-commode transfer.The patient required MIN physical assistance for the transfer and demonstrated significant relianceon bilateral upper-extremity hand held support to maintain dynamic standing balance, limiting the ability to engage the upper extremities for components of toileting tasks including lauren- hygiene and clothing management. OT provided graded facilitation, including verbal cues for sequencing and safety, as well as tactile prompting to optimize body mechanics and weight shifting to support safe task execution. Following seated rest break an additional 10ft travelled with RW introduced for balance support with patient travelling toward bathroom door. MIN A required due to gross tremulousness and unsteady balance. The task elicited elevated exertional demand, with observable fatigue and increased work of breathing, further indicating the need to confine intervention to preparatory activities at this time. Health Management Edema management discussed including LE elevation schedule, with benefits of alternating between positions of elevation with cardiac-chair posture for promotion of orthostatic tolerance. Elevated fist pumps encouraged while up in chair to address edema of dorsum of bilateral hands. BED MOBILITY Level of [place] Physical/Non- physical Assist Adaptive Equipment Utilized Rolling/ Turning Minimum assist (75% patient effort) Verbal Cues, Nonverbal cues (demo/gestures), 1 person +1 person to manage equipment Bed rails Scooting/ Bridging Minimum assist (75% patient's effort) (seated scoot) Nonverbal cues (demo/gestures), Verbal Cues Bed rails Supine to Sit Moderate assist (50% patient's effort) Verbal Cues, Nonverbal cues (demo/gestures), HOB elevated, Additional assist utilized for safety, Moderate cues Bed rails, Other (drawsheet) TRANSFERS Level of [place] Physical/Non- physical Assist Adaptive Equipment Utilized Sit to Stand Minimum assist (75% patient's effort) Verbal Cues, Nonverbal cues (demo/gestures), Additional assist utilized for safety Hand held assist Stand to sit Minimum assist (75% patient's effort) Nonverbal cues (demo/gestures), Verbal Cues, Additional assist utilized for safety Hand held assist Bed to Chair Minimum assist (75% patient's effort) Nonverbal cues (demo/gestures), Verbal Cues, Additional assist utilized for safety Hand held assist BALANCE Postural Appearance Posture: Within Functional Limits Level of [place] Balance Support Interventions Static Sit Contact guard No upper extremity support, Feet supported Dynamic Sit Contact guard Right upper extremity support, Left upper extremity support, Feet supported Dynamic Sitting-Balance: Anterior/Posterior weight shifts, Lateral weight shifts Static Stand Minimum assistance Right upper extremity support, Left upper extremity support Dynamic Stand Minimum assistance Right upper extremity support, Left upper extremity support Anterior/Posterior weight shifts, Lateral weight shifts FUNCTIONAL ENDURANCE Level of [place] Distance Adaptive Equipment Utilized Functional Mobility Minimum assistance, Minimal verbal cues, Additional assist needed for line management, Chair follow, Additional assist utilized for safety 10ft Rolling walker Chair follow STANDARDIZED ASSESSMENTS [facility] 6-Click Daily Activities Help from Other: Don/Doff Regular Lower Body Clothings: A lot Help From Other: Bathing: A lot Help From Other: Toileting: A lot Help From Other: Don/Doff Upper Body Clothings: Little Help From Other: Grooming: Little Help From Other: Eating Meals: Little [facility] 6 Click - Daily Activities Score: 15 ASSESSMENT OT FINDINGS Primary functional deficits: Impaired ADL performance, Impaired IADL performance, Decreased endurance/ventilation/gas exchange, Impaired functional mobility, Impaired fine motor control/coordination,Decreased gross motor control/coordination, Impaired balance Response to intervention: Activity demands of occupational therapy intervention resulting in increased pain, exacerbated fatigue , need for shortened activity durations , and need for activity modifications Barriers to return home: Return to home is not safe or appropriate at this time, as the patient lacks the physical endurance, and balance needed to perform basic self-care tasks adequately to reduce infection risk, maintain skin integrity, or access ADL environments without fall risk. Prior level of function: Patient ambulated without use of DME and was required assist only for donning shoes and socks prior to admit. Current presentation represents a significant change in functional status due to medical complexity associated with this hospitalization. Acute rehab placement is recommended to provide the patient the services that will be required to return to this baseline level of function within a reasonable time frame and achieve community re-entry. Additionally, patient'srisk of hospital readmission would be heightened if rehab-based services were provided at a lower level of care due to fall risk, extent of deconditioning that has occurred since onset of medical condition, and potential post-acute care complications. Plan: Patient would benefit from acute inpatient rehabilitation, where the intensity and frequency of skilled therapy services (3+ hours/day across multiple disciplines) is necessary to address significant impairments in endurance, balance, postural control, ADL performance, and fall risk. Acute elinor ab is medically necessary to maximize safety, restore function, and prevent further decline. A lower level of care would not provide the intensity of intervention required to meet the patient???s current rehabilitative needs or ensure safe discharge to home. Evaluation/ Treatment Tolerance (if identified) Patient limited by fatigue, Patient limited by pain Rehab Potential (if identified) Good, to achieve stated therapy goals Barriers to Discharge (if identified) (N/A) EVAL COMPLEXITY Occupational Profile Review of medical/therapy records and extensive additional review of physical,cognitive, or psychosocial history Performance Deficits Activities of daily living (ADLs), Instrumental activities of daily living (IADLs), Work, Body functions, Body structures, Motor skills, Habits, Routines, Roles, Personal, Physical Clinical Decision Making High Overall Eval Complexity Complex OT RECOMMENDATIONS Discharge Destination Acute rehab Discharge Equipment Rolling walker Discharge Transportation Recommendations Wheelchair transport van/shuttle Recommendations for Referral to Another Service (if applicable) Demonstrates Need for Referral to Another Service: Social work, PM & R PLAN Planned OT Interventions ADL retraining, IADL retraining, Balance training, Bed mobility Training, Motor coordination training, Stretching, Strengthening, Transfer training, Functional mobility, Caregiver education OT Frequency 3 - 5 times per week OT Duration 2 weeks OT GOALS OT GOAL DETAILS Time Frame OT Goal 1: Pt. will complete lower body dressing with SBA + AE as needed 2 weeks OT Goal 2: Pt. will complete transfer to standard height toilet seat with SBA and LRAD including entering/exiting bathroom 2 weeks OT Goal 3: Pt will complete toileting including lauren-hygiene and clothing management with set-up A + supervision for safety. 2 weeks OT Goal 4: Pt. will complete sequential grooming tasks with SBA standing sinkside >3 minutes in duration 2 weeks Written by Armida Joyce on 01/05/25 at 10:04 AM. * Progress Notes - Elyssa Healy - 01/05/2025 9:40 AM EST Physical Therapy Evaluation Patient Name: Orly White Today's Date: 01/05/2025 PT Discharge Recommendations: Acute rehab Equipment Recommended: Defer to facility History Orly White is 44 y.o. male admitted 01/02/2025 for work-up of Decompensation of cirrhosisof liver (CMS/HCC). Problem List Active Hospital Problems Diagnosis Date Noted Coagulopathy 01/04/2025 NINA (acute kidney injury) 01/04/2025 GERD (gastroesophageal reflux disease) 01/03/2025 Anxiety 01/03/2025 Thrombocytopenia (CMS/HCC) 01/03/2025 Hypotension 01/03/2025 Elevated INR 01/03/2025 Essential (primary) hypertension 11/04/2024 SBP (spontaneous bacterial peritonitis) 10/24/2024 Anemia 10/21/2024 Tobacco use disorder, continuous 10/20/2024 Insomnia 10/20/2024 Decompensation of cirrhosis of liver (CMS/HCC) 10/18/2024 Procedures Procedure(s): TRANSPLANT, LIVER Past Medical History Patient has a past medical history of Anxiety, Ascites, Cirrhosis (CMS/HCC), Depression, Enterocolitis due to Clostridium difficile, not specified as recurrent (11/04/2024), Esophageal varices, GERD (gastroesophageal reflux disease), Hepatic encephalopathy (CMS/HCC), Hypertension, Patient on waiting list for liver transplant (12/30/2024), SBP (spontaneous bacterial peritonitis), and Tobacco use disorder. Past Surgical History Patient has a past surgical history that includes Vasectomy. Precautions Medical Precautions: Post-Surgical precautions, Fall precautions Post-Surgical Precautions: Abdominal: no lifting >10# Subjective Patient agreeable to PT assessment. Participants in Care Family/Caregiver Present: No Family/Caregiver: Spouse, Mother Dining Room Attendant Cafeteria: Not Applicable Presentation Oxygen Therapy: Supplemental oxygen O2 Delivery Method: Nasal cannula O2 Flow Rate (L/min): 2 L/min Lines and Tubes: Art Line, Intravenous access, Central Line, Telemetry, Urinary catheter, Surgical drains Pre-Session: Supine, Head of bed elevated, Lines intact Pre-Session Comments: RN agreeable to session. Post-Session: Sitting in chair, RN notified, Lines intact, Call light in reach Post-Session Comments: Patient positioned for comfort with all needs in reach. Chair alarm pad in place but no box present. RN aware. Family at bedside. Home Living/Set-up Lives With: Spouse ( Patricia and 29 year old son) Home Type: House Home Adaptive Equipment: Rollator Home Layout: One level, Stairs to enter without rails (with basement, but patient does nothave to travel to basement level) Number of Stairs: 4 Bathroom: Tub/Shower: Tub/Shower combo Bathroom: Toilet: Standard Bathroom: Accessibility: Accessible via walker Home Living Comments: Patient had been to [facility] in September, and was still receiving outpatient PT. Prior Level of Function Receives Help From: Spouse Level of Mobility: Ambulatory- household only Mobility [place]: Independent gait without device History of Falls: Yes (mechanical falls- balancing during dressing and fall from bed level) ADL Performance: Needs assistance Bathing: Needs assist (had difficulty transferring out of tub) Upper Body Dressing: Independent Lower Body Dressing: Needs assist (with shoes and socks due to edema) Grooming: Independent Toileting: Independent Eating: Independent Home Management Skills: Independent Patient/Family Goals Patient would like to return home with family. Objective Pain Patient reports abdominal incisional pain 4/10 at rest and increasing to 7/10 with activity. Patient with abdominal binder donned prior to PT arrival. RN provided pain medication mid-session. Delirium Screening RASS: Alert and calm Confusion Assessment Method-ICU (CAM-ICU/PCAM-ICU) Feature 3: Altered Level of Consciousness: Negative Cognition Overall Cognitive Status: Within Functional Limits Arousal/Alertness: Appropriate responses to stimuli Mood/Behavior: Alert Orientation Level: Oriented X4 Single Step Commands: Consistently, 100% of the time Multi-Step Commands: Consistently, 100% of the time Method of Communication: Verbal Vision - Basic Assessment Patient Visual Report: no acute visual changes Current Vision: Intact Right Upper Extremity Examination RUE Assessment: Within Functional Limits Manual Muscle Testing - RUE: Within functional limits Sensation Light Touch: Right Upper Extremity: Intact Left Upper Extremity Examination LUE ROM Assessment LUE Assessment: Within Functional Limits Manual Muscle Testing - LUE Manual Muscle Testing - LUE: Within functional limits Sensation Light Touch: Left Upper Extremity: Intact Right Lower Extremity Examination RLE ROM Assessment RLE Assessment: Within Functional Limits Manual Muscle Testing - RLE Manual Muscle Testing - RLE: Within functional limits Sensation Light Touch: Right Lower Extremity: Mild impairment (tingling in toes/bottoms of feet) Left Lower Extremity Examination LLE Assessment: Within Functional Limits Manual Muscle Testing: Within functional limits Sensation Light Touch: Left Lower Extremity: Mild impairment (tingling in toes/bottoms of feet) Therapeutic Activity (19 minutes) Patient participated in the following PT interventions targeting functional strength and endurance in order to promote increased independence with functional mobility. Additional time required for line management, room set-up for safe mobility and positioning at end of session to achieve optimal comfort and pressure relief. Patient's vital signs monitored for signs of intolerance to activity throughout session. Patient with high BP reading prior to mobility so BP was monitored with the following readings: 167/96 (118): Pre-session/mobility 149/88 (104): Post transfer to chair Patient reporting stable dizziness after chair transfer. Bed Mobility Bed Mobility Interventions: Patient given moderate verbal and tactile cues for logroll technique toreduce strain on abdomen during transition. Patient cued for cross-body reach with right UE for leverage on bedrail followed by bringing BLE off bed surface and utilizing BUE to push self up to sitting. Overall moderate assist required at trunk for completion of activity. Once in sitting, patient re quiring CGA for lateral weight-shift and scoot to edge of bed. Bed Mobility Exam: Rolling/Turning Level of [place]: Minimum assist (75% patient effort) Physical/Nonphysical Assist: Verbal Cues, Nonverbal cues (demo/gestures), 1 person + 1 person to manage equipment Bed Mobility Exam: Scooting/Bridging Level of [place]: Minimum assist (75% patient's effort) (seated scoot) Physical/Nonphysical Assist: Nonverbal cues (demo/gestures), Verbal Cues Bed Mobility Exam: Supine to Sit Level of [place]: Moderate assist (50% patient's effort) Physical/Nonphysical Assist: Verbal Cues, Nonverbal cues (demo/gestures), HOB elevated, Additional assist utilized for safety, Moderate cues Transfers Transfer Interventions: PT provided minimal verbal cues for safe hand placement on PT to ensure safe transition as well as for anterior lean in order to achieve anterior weight translation over base of support to facilitate standing. Therapist provided minimal tactile cues at hip extensors. Physical assist required to achieve full upright posture and for balance upon standing. Patient then required minimal verbal cues for lateral weight-shift and stepping to chair as well as physical assist to maintain upright posture through completion of transfer. Patient performed additional sit to stand from chair to RW with cues provided for safe hand placement pushing up to stand and reaching back to sit and to control descent. Transfer Exam: Sit to stand Level of [place]: Minimum assist (75% patient's effort) Physical/Nonphysical Assist: Verbal Cues, Nonverbal cues (demo/gestures), Additional assist utilized for safety Assistive Device: Hand held assist Transfer Exam: Stand to Sit Level of [place]: Minimum assist (75% patient's effort) Physical/Nonphysical Assist: Nonverbal cues (demo/gestures), Verbal Cues, Additional assist utilized for safety Assistive Device: Hand held assist Transfer Exam: Bed to Chair/Chair to Bed Level of [place]: Minimum assist (75% patient's effort) Physical/Nonphysical Assist: Nonverbal cues (demo/gestures), Verbal Cues, Additional assist utilized for safety Type of Transfer: Sidesteps Assistive Device: Hand held assist Balance Postural Appearance Posture: Within Functional Limits Static Sitting Balance Static Sitting-Balance Support: No upper extremity support, Feet supported Static Sitting-Level of Assistance: Contact guard Dynamic Sitting Balance Dynamic Sitting-Balance Support: Right upper extremity support, Left upper extremity support, Feet supported Dynamic Sitting-Balance: Anterior/Posterior weight shifts, Lateral weight shifts Level of Assistance: Contact guard Static Standing Balance Static Standing-Balance Support: Right upper extremity support, Left upper extremity support Static Standing-Level of Assistance: Minimum assistance Dynamic Standing Balance Dynamic Standing-Balance Support: Right upper extremity support, Left upper extremity support Dynamic Standing-Balance: Anterior/Posterior weight shifts, Lateral weight shifts Dynamic Standing Level of Assistance: Minimum assistance Gait Training (10 minutes) Device: Rolling walker Apparatus: Chair follow Assistance: Minimum assistance, Minimal verbal cues, Minimal tactile cues, Additional assist utilized for safety, Chair follow Distance: 10 feet Gait Analysis: Patient demonstrates stiff posture, decreased stride length, decreased heel strike, and slow anastasiya. Patient reports moderate fatigue/weakness. Gait Training Interventions: PT sized RW appropriately to patient's height prior to gait activity. PT cued patient for safe walker spacing, relaxing shoulders, and normalizing step length as able. PTprovided tactile cues to pelvis for increased proximal stability. PT provided skilled monitoring ofpatient's vitals to ensure safety with activity. Standardized Assessments Standardized Assessments Standardized Assessments: [facility] 6-Clicks Mobility Assessment [facility] 6-Clicks Mobility Assessment Difficulty patient has turning over in bed (including adjusting bedclothes, sheets, and blankets)?:A little Difficulty patient has sitting down on and standing up from a chair with arms (wheelchair, bedside commode, etc.)?: A little Difficulty patient has moving from lying on back to sitting on the side of the bed?: A little How much help does the patient need moving to and from a bed to a chair (including a wheelchair)?: A little How much help does the patient need to walk in hospital room?: A little How much help does the patient need climbing 3-5 steps with a railing?: A lot [facility] 6-Clicks Mobility Assessment Total : 17 Assessment Patient limited throughout session by decreased strength, impaired balance, pain, and decreased functional endurance. Patient put forth good effort during all activities. Increased time required during treatment session to allow for rest breaks, line management/organization, and to allow patient/family time to debrief regarding current medical situation. Patient and family were also educated regarding PT POC, discharge planning, the benefits of mobility and HEP to improve strength and functional endurance. Patient currently most appropriate for acute rehab at discharge. Anticipate that the patient would benefit more greatly from acute rehab than other rehab services for the following reasons: The patient requires intensive and active therapeutic interventions of at least 2 disciplines (PT and OT). The patient will be able to tolerate 3 hours of therapy 5 days/week (or 15 hours over 7 days/week) once medically optimized. The patient's medical and rehab needs cannot be met at a lower level of care such as subacute rehabor home health. PRIOR to this hospitalization, the patient was a household ambulator and was independent with ADLs.CURRENTLY the patient is requiring minimal assist of 2 persons and only able to ambulate 10 feet with assistance. The above reasons indicate that the patient would benefit significantly from intensive rehab, in order to improve functional capacity within a reasonable period. Patient will benefit from skilled PT intervention during remainder of hospital stay to address identified impairments and progress towards maximal independence with functional mobility and ADLs. Impairments: Decreased endurance, ventilation, and/or gas exchange, Impaired gait dynamics/performance, Impaired balance, Impaired functional mobility/transfers, Impaired postural/trunk control, Pain, Impaired sensation/sensory processing Activity Limitations: Inability to ambulate independently, Inability to transfer independently, Inability to ambulate household distances, Inability to ambulate community distances, Inability to complete ADLs independently Participation Restrictions: Self-care, Home management, Community leisure Activity Tolerance: Tolerates 10 - 20 min activity with multiple rests Evaluation/Treatment Tolerance: Patient limited by pain, Patient limited by fatigue Diagnosis: Impaired functional mobility Rehab Potential: Good, to achieve stated therapy goals Barriers to Discharge: Comorbidities Eval Complexity History Profile: 3 or more personal factors and/or comorbidities Clinical Presentation: Unstable and unpredictable characteristics Clinical Decision Making: High complexity PT Recommendations Discharge Destination: Acute rehab Discharge Equipment: Defer to facility Plan Planned PT Interventions Balance training, Bed mobility training, Gait training, Transfer training, Neuromuscular re-education, Postural re-education, Strengthening, Functional Mobility, Caregiver training PT Frequency 3 - 5 times per week PT Duration 2 weeks Goals PT GOAL DETAILS Time Frame PT Goal 1: Patient will perform supine to/from sitting transfer with SBA from flat bed surface usign log roll technique. 2 weeks PT Goal 2: Patient will perform sit to/from standing transfer with RW and SBA. 2 weeks PT Goal 3: Patient will ambulate at least 400 feet continuously over level surfaces with RW and SBA. 2 weeks PT Goal 4: Patient will ascend/descend 4 steps with unilateral hand rail and SBA in order to accesshome environment safely. 2 weeks PT Goal 5: Patient will be compliant with HEP with set-up as needed from staff/family. 2 weeks Written by Elyssa Healy on 01/05/25 at 10:02 AM. * Progress Notes - Abisai Kirk - 01/05/2025 8:09 AM EST Abdominal Transplant Surgery Progress Note Events of past 24 hours: Orly White is a 44yo male with a PMH of decompensated alcohol related cirrhosis, ascites, HE, SBP, depression, anxiety, GERD, and HTN who presents to [facility] on 01/02 for possible liver transplant. 01/03: OLT Interval: POC okay, 1u pRBCs and 1u FFP ON. BP 167/94, HR 82. Extubated, on 4L NC. HDS, no pressors. AF. UOP 925mL. MOLLY 840 and 70 charted. Cr 1.84 (1.73). LFTs and Tbili downtrending. -pRBC x3 01/04, x1 01/05> H/H responded initially but has dropped to 7.8 (8.2) -Platelets x1 -FFP x1 -Liver US: vasculature patent with appropriate flow 1u RBC overnight, MOLLY drain output looks about the same, lateral drain fills up v fast Edited by: Abisai Kirk at 01/05/2025 0809 Review of Systems: 14-point ROS negative except as above in HPI. Last Recorded Vitals Blood pressure (!) 162/83, pulse 71, temperature (!) 36.2 ??C (97.2 ??F), resp. rate 14, height 1.88 m (6' 2.02 ), weight (S) 112 kg (246 lb 4.1 oz), SpO2 94%. Output by Drain (mL) 01/03/25 0700 - 01/03/25 1859 01/03/25 1900 - 01/04/25 0659 01/04/25 0700 - 01/04/25 1859 01/04/25 1900 - 01/05/25 0659 01/05/25 0700 - 01/05/25 0823 Closed/Suction Drain 1 Right;Ventral Abdomen Bulb 19 Fr. 90 180 360 480 Closed/Suction Drain 2 Left;Ventral Abdomen Bulb 19 Fr. 10 140 30 40 Physical Exam GENERAL: Alert, NAD EYES: PERRL + scleral icterus HENT: No lesions in anterior nares; no lesions in oropharynx, head atraumatic and normocephalic NECK: No JVD noted. The trachea appears midline. RESP: Symmetric expansion; no retractions. CARD: RRR Extremities: -LE edema, no cyanosis or clubbing. GI: Nontender, distended, firm to palpation. SKIN: No rash, sores, lesions or subcutaneous nodules. Jaundice. Abd incision C/D/I w/o erythema. : Knight in place draining clear yellow urine NEURO: GCS 15, alert and oriented 3x Results: Labs in last 18 hours Labs are independently reviewed daily. CBC WBC 8.52 Hb 7.8 (L) Plt 48 (L) Hct 22.9 (L) ANC ?? INR 1.6 (H), PTT ??, Anti-Xa ?? BMP Na 134 (L) Cl 105 BUN 44 (H) Glu 134 (H) K 4.6 Co2 16 (L) Cr 1.84 (H) Ca 8.5 (L) iCa ?? Mg 2.4, Phos 6.1 (H) Lactate ?? LFT AST 150 (H) AlkPhos 68 T Prot 5.4 (L) ALK 161 (H) Bili 5.2 (H) Alb ?? D.Bili ?? Coags: INR Date Value Ref Range Status 01/05/2025 1.6 (H) 0.9 - 1.1 Final Prothrombin Time Date Value Ref Range Status 01/05/2025 19.4 (H) 12.0 - 14.3 sec Final aPTT Date Value Ref Range Status 01/03/2025 48 (H) 25 - 35 sec Final Fibrinogen, Quantitative (Clottable) Date Value Ref Range Status 01/03/2025 134 (L) 208 - 459 mg/dL Final ABG: pH, Mixed Venous Date Value Ref Range Status 01/03/2025 7.31 (L) 7.32 - 7.43 Final pCO2, Mixed Venous Date Value Ref Range Status 01/03/2025 42 40 - 55 mmHg Final pO2, Mixed Venous Date Value Ref Range Status 01/03/2025 53 (H) 25 - 40 mmHg Final Base Excess, Mixed Venous Date Value Ref Range Status 01/03/2025 -5.1 (L) -2.0 - 3.0 mmol/L Final Bicarbonate, Calculated, Arterial Date Value Ref Range Status 01/03/2025 21 (L) 22 - 26 mmol/L Final Body Temperature Date Value Ref Range Status 01/03/2025 37.0 Celsius Final Lactate: Lactate, Arterial, Whole Blood Date Value Ref Range Status 01/03/2025 1.7 (H) 0.5 - 1.6 mmol/L Final Medications Current Scheduled Medications[1] Current Continuous Medications[2] Current PRN Medications[3] Imaging (past 24h): I personally visualized and interpreted all of the imaging studies below and I agree with formal interpretation. US Abdomen Focused Region Liver Result Date: 01/04/2025 1. Liver parenchyma is grossly unremarkable 2. Patent hepatic vasculature with appropriate flow directionality. CRITICAL RESULT: No. COMMUNICATION: Per this written report. Drafted by Keenan Shipley MD on 01/04/2025 11:39 AM Final report signed by Keenan Shipley MD on 01/04/2025 11:42 AM Assessment and Plan Medical Problems Problem List * (Principal) Decompensation of cirrhosis of liver (CMS/HCC) Tobacco use disorder, continuous Insomnia Anemia SBP (spontaneous bacterial peritonitis) Essential (primary) hypertension GERD (gastroesophageal reflux disease) Anxiety Thrombocytopenia (CMS/HCC) Hypotension Elevated INR Coagulopathy NINA (acute kidney injury) [ ] INR < 2 [ ] Plt > 20 [ ] Hgb >8 [ ] MAP > 65 [ ] F/u Liver US [ ] Hold subQH and asa Orly White is a 44yo male with a PMH of decompensated alcohol related cirrhosis, ascites, HE, SBP, depression, anxiety, GERD, and HTN who presents to [facility] on 01/02 for possible liver transplant. Now s/p liver transplant on 01/03, recovering well. Extubated post-op 01/03 to ND. HDS off pressors.Received pRBCs and FFP ON. Patient has required 4 additional units of pRBCs, 1 unit FFP, and 1 unitof platelets since 01/04. Patient is also distended but HDS. US Liver read as unremarkable with patent flow. Will CTM to determine if patient needs to return to OR for wash out. Continue to monitor renal function d/t NINA picture (decreasing UOP, increasing BUN and creatinine). Ordering KUB. Neuro: GCS 15. MMPC - home escitalopram, wellbutrin; held home trazodone CV: HDS - on home coreg 12.5 mg BID Pulm: on NC; IS/PEP/PAP. CXR low lung volumes with some congestion. GI: NPO, attempt bedside swallow. AST 150 (210, 264). ALT 161 (178, 177). T bili 5.2 (5.4, 4.9). Alk phos 68 (69). No flatus - PPI BID : UOP 925 mL; Cr 1.84 (1.73), BUN 44 (36, 29). Na 134 (138), K 4.6 (4.6), phos 6.1 (6.4, 6.3) ID: Afebrile, WBCs 8.52 (10.02) fluconazole Heme: Hgb 7.8 > 1u pRBCs given - home ferrous sulfate Immunosuppression: cellcept 1000 mg BID, methylpred taper, consider starting tacro today Diet: NPO GI reg: PPI LTD: CVC x3, PIV x2, 2x MOLLY drains, knight, a-line, > de-esscalate as able DVT ppx: SCDs, subQ heparin held Consults: CCM PT/OT: pending Dispo: pending Edited by: Abisai Kirk at 01/05/2025 0823 Abisai Kikr, MS3 [1] buPROPion SR, 150 mg, Oral, BID carvedilol, 25 mg, Oral, BID escitalopram, 10 mg, Oral, Daily ferrous sulfate, 324 mg, Oral, Daily with breakfast fluconazole, 200 mg, Intravenous, q24h insulin regular, 0-5 Units, Subcutaneous, q6h NICCI methocarbamol, 500 mg, Oral, 4x daily [START ON 01/06/2025] methylPREDNISolone sod suc (PF), 100 mg, Intravenous, Once methylPREDNISolone sod suc (PF), 125 mg, Intravenous, Once [START ON 01/08/2025] methylPREDNISolone sod suc (PF), 30 mg, Intravenous, Once [START ON 01/07/2025] methylPREDNISolone sod suc (PF), 60 mg, Intravenous, Once mycophenolate (Cellcept) 1,000 mg in dextrose 5 % 250 mL IVPB, 1,000 mg, Intravenous, BID pantoprazole, 40 mg, Oral, Daily phytonadione, 10 mg, Intravenous, q24h [START ON 01/09/2025] predniSONE, 5 mg, Oral, Daily with breakfast sodium chloride, 10 mL, Intravenous, q12h tacrolimus, 2 mg, Oral, BID (0600 & 1800) [2] [3] PRN medications: fentaNYL OR fentaNYL, hydrALAZINE OR hydrALAZINE, labetalol OR labetalol, ondansetron, oxyCODONE OR oxyCODONE, sodium chloride, sodium chloride, traZODone Cosigned by Maciel Olson MD at 01/05/2025 10:02 AM EST Associated attestation - Maciel Olson MD - 01/05/2025 10:02 AM EST I saw and evaluated the patient with the medical/LABORATORY MONITOR/PA student. I discussed the case with the medical/LABORATORY MONITOR/PA student and agree with the findings and plan as documented. I personally performed the Examand Medical Decision Making. Transplant type: OLT POD #2 24 events: received 2 units of PRBC, 1 FFP, 1 platelets. Neuro: GCS 15, AAOx3 CV: hypertension, on coreg. Resp: on 2 liters NC O2. Pulmonary toilet. IS. GI: on sips. AST/ALT improving, tbili stable. /FEN: NINA, UOP 975cc. Lytes okay. Hem/ID: H&H relatively stable, but has received some blood. INR good. Perioperative antibiotics. Endocrine: on ISS DVT prophylaxis: subQ heparin on hold for concerns of bleeding, venodynes GI prophylaxis: yes Lines/drains: MOLLY (both sanguinous). De-escalate lines. Immunosuppression: steroid taper, mmf, fk May need to go to OR for washout, but will continue trending H&H's. Immunosuppression medications require regular monitoring to ensure that the patient is not experiencing any adverse effects as a result for the therapeutic agent. I have therefore managed the patient's immunosuppression medication listed in this note, addressed any toxic side effects and adjusted levels appropriately. I have also reviewed the patient's medications, dosages and have assessed the need to continue or discontinue any medications. List of medications below: Current Medications[1] [1] Current Facility-Administered Medications: buPROPion SR (Wellbutrin SR) 12 hr tablet 150 mg, 150 mg, Oral, BID, Félix Simmons APRN, DNP, 150 mg at 01/05/25 0845 carvedilol (Coreg) tablet 25 mg, 25 mg, Oral, BID, Camilla Soto APRN, DNP, 25 mg at 01/05/25 0824 escitalopram (Lexapro) tablet 10 mg, 10 mg, Oral, Daily, Félix Simmons APRN, DNP, 10 mg at 01/05/25 0824 fentaNYL (Sublimaze) injection 25 mcg, 25 mcg, Intravenous, q2h PRN, 25 mcg at 01/05/25 0913 ORfentaNYL (Sublimaze) injection 50 mcg, 50 mcg, Intravenous, q2h PRN, Camilla Soto APRN, DNP, 50 mcg at 01/05/25 0354 ferrous sulfate EC tablet 324 mg, 324 mg, Oral, Daily with breakfast, Félix Simmons APRN, DNP, 324 mg at 01/05/25 0845 fluconazole in NS (Diflucan) IVPB 200 mg, 200 mg, Intravenous, q24h, Negro Cr MD, Last Rate: 100 mL/hr at 01/04/257, 200 mg at 01/04/25 2357 hydrALAZINE (Apresoline) injection 10 mg, 10 mg, Intravenous, q1h PRN, 10 mg at 01/03/25 1708 OR hydrALAZINE (Apresoline) injection 20 mg, 20 mg, Intravenous, q1h PRN, Camilla Soto APRN, DNP, 20 mg at 01/05/25 0713 insulin regular (HumuLIN R,NovoLIN R) 100 units/mL injection - Correction - Standard Dose, 0-5 Units, Subcutaneous, q6h NICCI, Negro Cr MD labetalol (Normodyne,Trandate) injection 10 mg, 10 mg, Intravenous, q1h PRN, 10 mg at 01/04/252008OR labetalol (Normodyne,Trandate) injection 20 mg, 20 mg, Intravenous, q1h PRN, Camilla Soto APRN, DNP, 20 mg at 01/05/25 0726 methocarbamol (Robaxin) tablet 500 mg, 500 mg, Oral, 4x daily, Cheryl Choi MD, 500 mg at 01/05/25 0824 [START ON 01/06/2025] methylPREDNISolone sodium succinate (PF) (SOLU-Medrol) injection 100 mg, 100 mg, Intravenous, Once, Negro Cr MD [START ON 01/08/2025] methylPREDNISolone sodium succinate (PF) (SOLU-Medrol) injection 30 mg, 30 mg, Intravenous, Once, Negro Cr MD [START ON 01/07/2025] methylPREDNISolone sodium succinate (PF) (SOLU-Medrol) injection 60 mg, 60 mg, Intravenous, Once, Negro Cr MD mycophenolate (Cellcept) 1,000 mg in dextrose 5 % 250 mL IVPB, 1,000 mg, Intravenous, BID, Negro Cr MD, Last Rate: 152.5 mL/hr at 01/04/254, 1,000 mg at 11/23/25 2224 ondansetron (Zofran) injection 4 mg, 4 mg, Intravenous, q6h PRN, Negro Cr MD, 4 mg at 01/04/25 1722 oxyCODONE (Roxicodone) immediate release tablet 5 mg, 5 mg, Oral, q6h PRN OR oxyCODONE (Roxicodone) immediate release tablet 10 mg, 10 mg, Oral, q6h PRN, Kathy Jiang APRN, DNP, 10 mg at 01/05/25 0539 pantoprazole (Protonix) EC tablet 40 mg, 40 mg, Oral, Daily, Camilla Soto APRN, DNP, 40 mg at 01/05/25 0824 phytonadione (Vitamin K) 10 mg in sodium chloride 0.9 % 50 mL IVPB, 10 mg, Intravenous, q24h, Negro Cr MD, Last Rate: 112 mL/hr at 01/04/25 1501, 10 mg at 01/04/25 1501 [START ON 01/09/2025] predniSONE (Deltasone) tablet 5 mg, 5 mg, Oral, Daily with breakfast, Negro Cr MD sodium chloride 0.9 % flush 10 mL, 10 mL, Intravenous, q12h, Camilla Soto APRN, DNP, 10 mL at 01/04/25 1722 sodium chloride 0.9 % flush 10 mL, 10 mL, Intravenous, q1h PRN, Camilla Soto APRN, DNP sodium chloride 0.9 % flush 20 mL, 20 mL, Intravenous, q1h PRN, Camilla Soto APRN, DNP tacrolimus (Prograf) capsule 2 mg, 2 mg, Oral, BID (0600 & 1800), Cheryl Choi MD, 2 mgat 01/05/25 0538 traZODone (Desyrel) tablet 50 mg, 50 mg, Oral, Nightly PRN, Camilla Soto APRN, DNP, 50 mg at 01/04/25 210 * Care Plan - Shaka Burciaga RN - 01/04/2025 8:57 PM EST Problem: Adult Inpatient Plan of Care Goal: Plan of Care Review Outcome: Ongoing, Progressing Flowsheets Taken 01/04/2025 1107 by Tila Vazquez RN Plan of Care Reviewed With: patient spouse parent Taken 01/04/2025 0013 by Eleazar Bradford RN Progress: improving Outcome Evaluation: pt is stable and progressing through recovery appropriately Goal: Patient-Specific Goal (Individualized) Outcome: Ongoing, Progressing Flowsheets (Taken 01/04/20251999) Patient/Family-Specific Goals (Include Timeframe): patient will verbalize a pain level consistent with goal by end of shift Individualized Care Needs: pain control Anxieties, Fears or Concerns: pain Goal: Absence of Hospital-Acquired Illness or Injury Outcome: Ongoing, Progressing Intervention: Identify and Manage Fall Risk Flowsheets (Taken 01/04/20251999) Safety Promotion/Fall Prevention: activity supervised assistive device/personal items within reach Intervention: Prevent Skin Injury Flowsheets Taken 01/04/20251999 by Shaka Burciaga RN Body Position: turned Taken 01/02/20252029 by Allison Rosenbaum RN Skin Protection: incontinence pads utilized Intervention: Prevent and Manage VTE (Venous Thromboembolism) Risk Flowsheets (Taken 01/04/20251999) VTE Prevention/Management: bilateral SCDs (sequential compression devices) on Intervention: Prevent Infection Flowsheets (Taken 01/04/20252055) Infection Prevention: environmental surveillance performed Goal: Optimal Comfort and Wellbeing Outcome: Ongoing, Progressing Intervention: Monitor Pain and Promote Comfort Flowsheets (Taken 01/04/2025 1912) Pain Management Interventions: medication (see MAR) Intervention: Provide Person-Centered Care Flowsheets (Taken 01/04/20252055) Trust Relationship/Rapport: care explained Problem: Fall Injury Risk Goal: Absence of Fall and Fall-Related Injury Outcome: Ongoing, Progressing Intervention: Identify and Manage Contributors Flowsheets (Taken 01/02/20252099 by Allison Rosenbaum RN) Medication Review/Management: medications reviewed Self-Care Promotion: independence encouraged BADL personal objects within reach Intervention: Promote Injury-Free Environment Flowsheets (Taken 01/04/20251999) Safety Promotion/Fall Prevention: activity supervised assistive device/personal items within reach Problem: Anxiety Signs/Symptoms Goal: Optimized Energy Level (Anxiety Signs/Symptoms) Outcome: Ongoing, Progressing Intervention: Optimize Energy Level Flowsheets (Taken 01/04/20252055) Activity (Behavioral Health): activity adjusted per tolerance Goal: Optimized Cognitive Function (Anxiety Signs/Symptoms) Outcome: Ongoing, Progressing Intervention: Support and Promote Cognitive Ability Flowsheets (Taken 01/04/20252055) Communication Support Strategies: active listening utilized Goal: Improved Mood Symptoms (Anxiety Signs/Symptoms) Outcome: Ongoing, Progressing Intervention: Optimize Emotion and Mood Flowsheets (Taken 01/04/20252055) Supportive Measures: active listening utilized Goal: Improved Sleep (Anxiety Signs/Symptoms) Outcome: Ongoing, Progressing Intervention: Promote Healthy Sleep Hygiene Flowsheets (Taken 01/04/20252055) Sleep Hygiene Promotion: awakenings minimized Goal: Enhanced Social, Occupational or Functional Skills (Anxiety Signs/Symptoms) Outcome: Ongoing, Progressing Intervention: Promote Social, Occupational and Functional Ability Flowsheets (Taken 01/04/20252055) Trust Relationship/Rapport: care explained Social Functional Ability Promotion: autonomy promoted Goal: Improved Somatic Symptoms (Anxiety Signs/Symptoms) Outcome: Ongoing, Progressing Intervention: Minimize Somatic Disturbance Note: Therapeutic presence * Progress Notes - Alicia Rodrigues PharmD - 01/04/2025 12:20 PM EST I met with the patient and the caregiver today. We discussed the pharmacist role on the team. I explained I have reviewed the patient's home medications with the team and will be restarting those as necessary. We discussed that the pharmacist will see the patient and caregiver again prior to discharge to review the new medication regimen. The pharmacist will continue to round with the team and fol low the patient during this admission. Alicia Rodrigues PharmD PGY2 Solid Organ Transplant Transportation Broker * Progress Notes - Laura Muñiz LCSW - 01/04/2025 12:17 PM EST Transplant Social Work Admission Note Identifying Information: Patient Name: Orly White Date of : 1980 Social Support System: The primary caregiver is , Patricia, who is committed and involved Local Housing Needs and Transportation: Patient and caregiver require temporary housing near the hospital post- discharge: NO. Plan in placet[place] stay at: home. Transportation to follow-up appointments will be provided by: /family. Financial Status: Reported household income estimated at below 300% [employer]. Financial concerns noted regarding: transportation. Patient and both pending SSDI decisions, has been working some, with monthly income about $750, however, she will be primary caregiver. Patient does receive SNAP benefits, but would benefit from gas card assistance Clinical Summary: Gabi FERREIRA is actively collaborating with the multidisciplinary transplant team to support ongoing psychosocial needs. Per team report, the patient continues to recover in the ICU status post liver transplant performed on 01/03/25. Psychosocial needs assessed via open-ended questions to explore adjustment, coping mechanisms, and supports. Patient extubated, on 4L O2, LFT's downtrending. Patient/Caregiver Expressed Concerns Regarding: financial strain Supportive Counseling Provided Focused On: []Supportive counseling on coping with transplant emotions, transplant-related anxiety, and adjustment post-transplant []Caregiver roles and expectations []Coping with illness and medical complexity []Encouragement of coping strategies (journaling, mindfulness, relaxation) []Review of support systems and resource availability []Financial stressor support and housing assistance []Provided caregiver support and education []Supported patient in expressing concerns and questions to the transplant team to foster self-advocacy [x]Reinforced housing and transportation plans upon discharge [x]Provided patient/caregiver education regarding transplant [x]Tx SW provided contact information and encouraged the patient and caregiver to reach out as needed Plan: Maintain collaboration with the multidisciplinary team on post-transplant needs Continue to monitor psychosocial status during hospitalization Provide supportive counseling and education to the patient and caregiver as needed Assist with linkage to local resources and financial supports Document ongoing needs and interventions in follow-up notes Laura Muñiz LCSW, [facility] Transplant Physicist [facility] * ED Procedure Note - Cheryl Choi MD - 01/04/2025 11:23 AM EST Abdominal Transplant Surgery Progress Note Events of past 24 hours: Orly White is a 44yo male with a PMH of decompensated alcohol related cirrhosis, ascites, HE, SBP, depression, anxiety, GERD, and HTN who presents to [facility] on 01/02 for possible liver transplant. Interval: POC okay, 1u pRBCs and 1u FFP ON. Extubated, on 4L NC. HDS, no pressors. AF. UOP 3.3L. JP90 and 10 charted. Cr 1.40 (1.25). LFTs and Tbili downtrending. Edited by: Cheryl Choi MD at 01/04/2025 0613 Review of Systems: 14-point ROS negative except as above in HPI. Last Recorded Vitals Blood pressure (!) 171/70, pulse 69, temperature 36.5 ??C (97.7 ??F), resp. rate 19, height 1.88 m (6' 2.02 ), weight 107 kg (236 lb 1.8 oz), SpO2 96%. Output by Drain (mL) 01/02/25 0700 - 01/02/25 1859 01/02/25 1900 - 01/03/25 0659 01/03/25 0700 - 01/03/25 1859 01/03/25 1900 - 01/04/25 0659 01/04/25 0700 - 01/04/25 1123 Closed/Suction Drain 1 Right;Ventral Abdomen Bulb 19 Fr. 90 180 Closed/Suction Drain 2 Left;Ventral Abdomen Bulb 19 Fr. 10 140 Physical Exam GENERAL: Resting in bed EYES: PERRL - scleral icterus HENT: No lesions in anterior nares; no lesions in oropharynx, head atraumatic and normocephalic NECK: No JVD noted. The trachea appears midline. RESP: Symmetric expansion; no retractions. NC CARD: RRR. No pressors Extremities: +LE edema GI: Distended, ATTP, MOLLY drains bloody; Covaderm over incision : Knight in place draining clear yellow urine, adequate amount NEURO: GCS15 Results: Labs in last 18 hours Labs are independently reviewed daily. CBC WBC 8.55 Hb 6.7 (L) Plt 51 (L) Hct 20.3 (L) ANC ?? INR 2.0 (H), PTT ??, Anti-Xa ?? BMP Na 140 Cl 110 (H) BUN 29 (H) Glu 130 (H) K 4.6 Co2 16 (L) Cr 1.64 (H) Ca 8.3 (L) iCa ?? Mg 2.4, Phos 6.3 (H) Lactate ?? LFT AST 264 (H) AlkPhos 63 T Prot 4.6 (L) ALK 177 (H) Bili 4.9 (H) Alb ?? D.Bili ?? Coags: INR Date Value Ref Range Status 01/04/2025 2.0 (H) 0.9 - 1.1 Final Prothrombin Time Date Value Ref Range Status 01/04/2025 23.4 (H) 12.0 - 14.3 sec Final aPTT Date Value Ref Range Status 01/03/2025 48 (H) 25 - 35 sec Final Fibrinogen, Quantitative (Clottable) Date Value Ref Range Status 01/03/2025 134 (L) 208 - 459 mg/dL Final ABG: pH, Mixed Venous Date Value Ref Range Status 01/03/2025 7.31 (L) 7.32 - 7.43 Final pCO2, Mixed Venous Date Value Ref Range Status 01/03/2025 42 40 - 55 mmHg Final pO2, Mixed Venous Date Value Ref Range Status 01/03/2025 53 (H) 25 - 40 mmHg Final Base Excess, Mixed Venous Date Value Ref Range Status 01/03/2025 -5.1 (L) -2.0 - 3.0 mmol/L Final Bicarbonate, Calculated, Arterial Date Value Ref Range Status 01/03/2025 21 (L) 22 - 26 mmol/L Final Body Temperature Date Value Ref Range Status 01/03/2025 37.0 Celsius Final VBG: No results found for: BDVEN , BEVEN , HPH8LSZ , GVQ0HQN , PHVEN , PO2VEN , Q8XWRUTN , [id number] , PHVENTEMP Lactate: Lactate, Arterial, Whole Blood Date Value Ref Range Status 01/03/2025 1.7 (H) 0.5 - 1.6 mmol/L Final Medications Current Scheduled Medications[1] Current Continuous Medications[2] Current PRN Medications[3] Imaging (past 24h): I personally visualized and interpreted all of the imaging studies below and I agree with formal interpretation. XR Chest 1 View Result Date: 01/03/2025 Lines and catheters as above Moderate layering left effusion and left lower lobe opacities, possibly atelectasis CRITICAL RESULT: No COMMUNICATION: Per this written report. Drafted by Ernesto Rizo MD on 01/03/2025 4:05 PM Final report signed by Ernesto Rizo MD on 01/03/2025 4:06 PM XR Abdomen 1 View (Adult Inpatients per policy) Result Date: 01/03/2025 The tip of the gastric tube is within the proximal stomach CRITICAL RESULT: No. COMMUNICATION: Per this written report. Drafted by Ernesto Rizo MD on 01/03/2025 3:43 PM Final report signed by Ernesto Rizo MD on 01/03/2025 3:43 PM Assessment and Plan Medical Problems Problem List * (Principal) Decompensation of cirrhosis of liver (CMS/HCC) Tobacco use disorder, continuous Insomnia Anemia SBP (spontaneous bacterial peritonitis) Essential (primary) hypertension GERD (gastroesophageal reflux disease) Anxiety Thrombocytopenia (CMS/HCC) Hypotension Elevated INR Coagulopathy NINA (acute kidney injury) [ ] INR < 2 [ ] Plt > 20 [ ] Hgb >8 [ ] MAP > 65 [ ] F/u Liver US Orly White is a 44yo male with a PMH of decompensated alcohol related cirrhosis, ascites, HE, SBP, depression, anxiety, GERD, and HTN who presents to [facility] on 01/02 for possible liver transplant. Now s/p liver transplant on 01/03, recovering well. Extubated overnight to ND. HDS off pressors. Received pRBCs and FFP ON. Since rounds, patient has required 3 additional units of pRBCs, 1 unit FFP, and 1 unit of platelets. Patient is also distended but HDS. Will CTM to determine if patient needs to return to OR for wash out. US Liver read pending. Neuro: GCS 15 - home escitalopram, wellbutrin; held home trazodone CV: HDS - on home coreg 6.25 mg BID Pulm: on NC; IS/PEP/PAP GI: NPO, attempt bedside swallow - rifaximin & lactulose - PPI BID : UOP 3.3L; Cr 1.4 (1.25) ID: Heme: Hgb 7.7 > 1u pRBCs given - home ferrous sulfate Immunosuppression: cellcept 1000 mg BID, methylpred taper, consider starting tacro today Diet: NPO GI reg: PPI LTD: CVC x3, PIV x2, 2x MOLLY drains, knight, a-line x2, PAC > de-esscalate as able DVT ppx: Plt 59 > consider restarted subqH Consults: CCM PT/OT: pending Dispo: pending Edited by: Cheryl Choi MD at 01/04/2025 1123 Cheryl Choi MD General Surgery PGY-1 01/04/2025 [1] albumin human, 25 g, Intravenous, q8h buPROPion SR, 150 mg, Oral, BID carvedilol, 12.5 mg, Oral, BID escitalopram, 10 mg, Oral, Daily ferrous sulfate, 324 mg, Oral, Daily with breakfast fluconazole, 200 mg, Intravenous, q24h insulin regular, 0-5 Units, Subcutaneous, q6h NICCI methocarbamol, 500 mg, Oral, 4x daily methylPREDNISolone sod suc (PF), 250 mg, Intravenous, Once [START ON 01/06/2025] methylPREDNISolone sod suc (PF), 100 mg, Intravenous, Once [START ON 01/05/2025] methylPREDNISolone sod suc (PF), 125 mg, Intravenous, Once [START ON 01/08/2025] methylPREDNISolone sod suc (PF), 30 mg, Intravenous, Once [START ON 01/07/2025] methylPREDNISolone sod suc (PF), 60 mg, Intravenous, Once mycophenolate (Cellcept) 1,000 mg in dextrose 5 % 250 mL IVPB, 1,000 mg, Intravenous, BID pantoprazole, 40 mg, Intravenous, Daily phytonadione, 10 mg, Intravenous, q24h piperacillin-tazobactam (Zosyn) 3.375 g in sodium chloride 0.9% 100 mL IVPB (vial adapter required), 3.375 g, Intravenous, q6h [START ON 01/09/2025] predniSONE, 5 mg, Oral, Daily with breakfast sodium chloride, 10 mL, Intravenous, q12h [2] [3] PRN medications: fentaNYL OR fentaNYL, hydrALAZINE OR hydrALAZINE, labetalol OR labetalol, ondansetron, oxyCODONE OR oxyCODONE, sodium chloride, sodium chloride, traZODone Cosigned by Satnam Beckford MD at 01/04/2025 4:01 PM EST Associated attestation - Satnam Beckford MD - 01/04/2025 4:01 PM EST I saw and evaluated the patient with the resident/fellow. I discussed the case with the resident/fellow and agree with the findings and plan as documented. POD 1 OLT, with good allograft function. Hx of alcoholic cirrhosis. Extubated post-op in the ICU. Overnight events: hypertensive. Drop in h/h. Required 3 u prbc 1ffp and 1 plt with good response. N: AAOx3. GCS 15. C/o abd pain. Resume home anti-depressants CV: HDS. Hypertensive. On home coreg Pulm: on NC. Wean. IS encourged. CXR ok. Low volumes FEN/GI: sips with chips. Drains appear less sanginous. LFTs down trend appropriately. Phos elevated. Monitor. Renal: NINA - 2/2 ATN. Monitor. Heme: H/H improved. Acute blood loss anemia. Trend cbc. INR improved. ID: finishing ppx abx MSK: OOB to chair. PT/OT consult Ppx: Hold SQH/ASA. Ppi Imm: Start fk 2/2. MMF 1000mg BID. Steroid taper Continue ICU care. Immunosuppression medication requires regular monitoring to ensure that the patient is not experiencing any adverse effects as a result for the therapeutic agent. I have therefore, managed the patient's immunosuppression medication listed in this note, addressed any toxic side effects, and adjustedlevels appropriately. Satnam Beckford MD * Care Plan - Tila Vazquez RN - 01/04/2025 11:07 AM EST Problem: Adult Inpatient Plan of Care Goal: Plan of Care Review Outcome: Ongoing, Progressing Flowsheets Taken 01/04/2025 1107 by Tila Vazquez, RN Plan of Care Reviewed With: patient spouse parent Taken 01/04/2025 0013 by Eleazar Bradford RN Progress: improving Goal: Patient-Specific Goal (Individualized) Outcome: Ongoing, Progressing Flowsheets (Taken 01/04/2025 0800) Patient/Family-Specific Goals (Include Timeframe): Patient will have hgb within rage this shift Individualized Care Needs: Pain control, lab monitoring Anxieties, Fears or Concerns: None at this time Goal: Optimal Comfort and Wellbeing Outcome: Ongoing, Progressing Problem: Anxiety Signs/Symptoms Goal: Optimized Energy Level (Anxiety Signs/Symptoms) Outcome: Ongoing, Progressing * Assessment & Plan Note - Camilla Soto APRN, DNP - 01/04/2025 10:20 AM EST Associated Problem(s): Tobacco use disorder, continuous Continue home Wellbutrin * Assessment & Plan Note - Camilla Soto APRN, DNP - 01/04/2025 10:20 AM EST Associated Problem(s): Insomnia Continue home trazodone PRN * Assessment & Plan Note - Camilla Soto APRN, DNP - 01/04/2025 10:20 AM EST Associated Problem(s): Anemia Lab Results Component Value Date HGB 6.7 (L) 01/04/2025 , Lab Results Component Value Date HCT 20.3 (L) 01/04/2025 Received 1u PRBC and 1u FFP overnight Hgb 6.7 and INR 2 this AM; ordered 2u PRBC and 1u FFP MA<40 on TEG; ordered 1u platelets Transfuse as appropriate for Hgb>8 and INR<2 Continue vitamin K Will continue to trend * Assessment & Plan Note - Camilla Soto APRN, DNP - 01/04/2025 10:20 AM EST Associated Problem(s): Essential (primary) hypertension Increased coreg to 12.5mg BID PRN labetalol and hydralazine for SBP>160 * Assessment & Plan Note - Camilla Soto APRN, DNP - 01/04/2025 10:20 AM EST Associated Problem(s): Thrombocytopenia (CMS/HCC) Plt count 61 postop Plt 51 today Transfuse for plt>20 Will continue to monitor * Assessment & Plan Note - Camilla Soto APRN, DNP - 01/04/2025 10:20 AM EST Associated Problem(s): Elevated INR Lab Results Component Value Date HGB 6.7 (L) 01/04/2025 , Lab Results Component Value Date HCT 20.3 (L) 01/04/2025 Received 1u PRBC and 1u FFP overnight Hgb 6.7 and INR 2 this AM; ordered 2u PRBC and 1u FFP MA<40 on TEG; ordered 1u platelets Transfuse as appropriate for Hgb>8 and INR<2 Continue vitamin K Will continue to trend * Assessment & Plan Note - Camilla Soto APRN, DNP - 01/04/2025 10:20 AM EST Associated Problem(s): Coagulopathy Lab Results Component Value Date HGB 6.7 (L) 01/04/2025 , Lab Results Component Value Date HCT 20.3 (L) 01/04/2025 Received 1u PRBC and 1u FFP overnight Hgb 6.7 and INR 2 this AM; ordered 2u PRBC and 1u FFP MA<40 on TEG; ordered 1u platelets Transfuse as appropriate for Hgb>8 and INR<2 Continue vitamin K Will continue to trend * Assessment & Plan Note - Camilla Soto APRN, DNP - 01/04/2025 10:20 AM EST Associated Problem(s): NINA (acute kidney injury) Baseline Cr ~0.8 Creatinine, Plasma Date Value Ref Range Status 01/04/2025 1.64 (H) 0.70 - 1.20 mg/dL Final Consider renal U/S as appropriate Monitor renal function daily Avoid nephrotoxins, avoid NSAIDs, renally dose medications * Consults - Georgina Darby LD - 01/04/2025 9:53 AM ESTAssociated Order(s): IP CONSULT TO NUTRITION SERVICES Adult Nutrition Evaluation Note Orly White 44 y.o. male CSN: [id number] Room/Bed 238/238A Nutrition evaluation type: assessment Reason for evaluation: provider consult Index Admission: Post transplant phase assessment Hospital course: 44 y/o M presents for liver transplant on 01/03. Past medical/ surgical history: Past Medical History[1] Surgical History[2] Social history: Additional comments: Vitals and Basic Assessment: BP: (!) 157/64 Temp: 36.5 ??C (97.7 ??F) Invasive Ventilator Initiated (ETT/Trach Only): Yes Oxygen Therapy: Supplemental oxygen O2 Delivery Method: Nasal cannula [place] Coma Scale Score: 15 Rosendo Scale Score: 20 Danyel/Cubbin Pressure Risk Score: 37 Most Recent BM Date: 01/02/25 (3x since morning) GI Symptoms: Nausea Edema: Generalized Allergies: Allergies[3] Medications: Current Scheduled Medications[4] Meds were reviewed: Yes Labs: Lab Results Component Value Date GLUCOSE 130 (H) 01/04/2025 CALCIUM 8.3 (L) 01/04/2025 NA 140 01/04/2025 K 4.6 01/04/2025 CO2 16 (L) 01/04/2025 CL 110 (H) 01/04/2025 BUN 29 (H) 01/04/2025 CREATININE 1.64 (H) 01/04/2025 PHOS 6.3 (H) 01/04/2025 MG 2.4 01/04/2025 HGBA1C <4.0 10/21/2024 Anthropometrics: Height: 188 cm (6' 2.02 ) Weight: 107 kg (236 lb 1.8 oz) BMI (Calculated): 30.3 Weight Evaluation: Obese-Class 1 (BMI 30-34.9) [place] Body Weight (kg): 86.4 Percent [place] Body Weight: 124 Estimated Needs: Metabolic Cart Study Results: Current Nutrition Intake: Diet Supplements: None Diet Order: NPO Diet Experience and Nutrition History: Diet Education Provided: Will monitor Pertinent home medications: Pentecostal needs: Nutrition Focused Physical Exam: Unable to Complete Exam: Weekend coverage Physical exam performed on (date): Assessment of Malnutrition: Malnutrition Identified: Additional Information Needed Nutrition Problem: Inadequate oral intake related to current clinical condition as evidenced by NPO. Status of Nutrition Diagnosis: New Nutrition Interventions and Recommendations: Advancement of diet per primary. Recommend 2 g Na, solid organ transplant, monitor trends for renalmodifications. Recommend Boost Plus BID to encourage PO intake once diet is advanced. Nutrition Monitoring and Goals: Source of nutrition established by RD follow up NFPE on follow up Acuity Level: 4 BOB Whitting[place], RD Weekend Dietitian [1] Past Medical History: Diagnosis Date Anxiety Ascites Cirrhosis (CMS/HCC) Depression Enterocolitis due to Clostridium difficile, not specified as recurrent 11/04/2024 Esophageal varices GERD (gastroesophageal reflux disease) Hepatic encephalopathy (CMS/HCC) Hypertension Patient on waiting list for liver transplant 12/30/2024 SBP (spontaneous bacterial peritonitis) Tobacco use disorder [2] Past Surgical History: Procedure Laterality Date VASECTOMY [3] Allergies Allergen Reactions Amoxicillin Hives and Rash Childhood allergy [4] albumin human, 25 g, Intravenous, q8h buPROPion SR, 150 mg, Oral, BID carvedilol, 12.5 mg, Oral, BID escitalopram, 10 mg, Oral, Daily ferrous sulfate, 324 mg, Oral, Daily with breakfast fluconazole, 200 mg, Intravenous, q24h insulin regular, 0-5 Units, Subcutaneous, q6h NICCI methylPREDNISolone sod suc (PF), 250 mg, Intravenous, Once [START ON 01/06/2025] methylPREDNISolone sod suc (PF), 100 mg, Intravenous, Once [START ON 01/05/2025] methylPREDNISolone sod suc (PF), 125 mg, Intravenous, Once [START ON 01/08/2025] methylPREDNISolone sod suc (PF), 30 mg, Intravenous, Once [START ON 01/07/2025] methylPREDNISolone sod suc (PF), 60 mg, Intravenous, Once mycophenolate (Cellcept) 1,000 mg in dextrose 5 % 250 mL IVPB, 1,000 mg, Intravenous, BID pantoprazole, 40 mg, Intravenous, Daily phytonadione, 10 mg, Intravenous, q24h piperacillin-tazobactam (Zosyn) 3.375 g in sodium chloride 0.9% 100 mL IVPB (vial adapter required), 3.375 g, Intravenous, q6h [START ON 01/09/2025] predniSONE, 5 mg, Oral, Daily with breakfast sodium chloride, 10 mL, Intravenous, q12h * Assessment & Plan Note - Camilla Soto, SEO ASSISTANT, DNP - 01/04/2025 9:19 AM EST Associated Problem(s): Decompensation of cirrhosis of liver (CMS/HCC) Hx of ETOH cirrhosis c/b ascites, HE, EV, SBP S/p OLT Pre-Op MELD 27 Transfused 8uPRBC, 8uFFP, 1uPlt, 500mL Albumin, 5L Crystalloid intra-op; ascites ~ 1.5L & EBL 4.8L 25g albumin Q8 Drains per primary Continue abx Anti-rejection and immunosuppressive medications per primary * Assessment & Plan Note - Camilla Soto APRN, DNP - 01/04/2025 9:19 AM EST Associated Problem(s): SBP (spontaneous bacterial peritonitis) Hx of On prophylactic cipro prior to translant * Assessment & Plan Note - Camilla Soto APRN, DNP - 01/04/2025 9:19 AM EST Associated Problem(s): GERD (gastroesophageal reflux disease) Continue home PPI * Assessment & Plan Note - Camilla Soto APRN, DNP - 01/04/2025 9:19 AM EST Associated Problem(s): Anxiety Continue home Lexapro * Progress Notes - Camilla Soto APRN, DNP - 01/04/2025 9:16 AM ESTAssociated Order(s): Critical Care Post-Procedure Diagnose(s): Decompensation of cirrhosis of liver (CMS/HCC) Critical Care Performed by: Camilla Soto APRN, DNP Authorized by: Camilla Soto APRN, DNP Critical care provider statement: Critical care time (minutes): 75 Critical care time was exclusive of: Separately billable procedures and treating other patients Critical care was time spent personally by me on the following activities: Development of treatmentplan with patient or surrogate, discussions with consultants, discussions with primary provider, evaluation of patient's response to treatment, examination of patient, ordering and performing treatments and interventions, ordering and review of laboratory studies and ordering and review of radiographic studies 01/04/25 Orly White HPI Orly White is a 44 y.o. male who presents with Decompensation of cirrhosis of liver (CMS/HCC). Past 24 hours: Overnight, received 1u FFP and 1u PRBC for Hgb 7.7 and INR 2. Hgb 6.7 and INR 2 this AM. 2u PRBC and additional 1u FFP ordered. MA<40 on TEG - ordered 1u platelets. Will discuss possible platelet administration with txp. Patient this morning on RA. Abdomen is soft but more taut with increased output of godwin blood via lateral MOLLY drain. Will continue to trend coags & H&H with possible return to OR today with txp team. Patient remains hypertensive with SBP intermittently 170-180.Increased PO coreg and will continue PRN labetalol and hydralazine for SBP<160. Lines/Drains/Tubes: Patient Lines/Drains/Airways Status Active Active LDAs Name Placement date Placement time Site Days CVC Double Lumen 01/03/25 Right Internal jugular 01/03/25 0730 Internal jugular 1 CVC Triple Lumen 01/03/25 Right Internal jugular 01/03/25 0730 Internal jugular 1 CVC Triple Lumen 01/03/25 Left Subclavian 01/03/25 0730 Subclavian 1 Peripheral IV 01/02/25 Left;Posterior Wrist 01/02/25 1000 Wrist 1 Peripheral IV 01/03/25 Right;Posterior Hand 01/03/25 0730 Hand 1 Closed/Suction Drain 1 Right;Ventral Abdomen Bulb 19 Fr. 01/03/25 1317 Abdomen less than 1 Closed/Suction Drain 2 Left;Ventral Abdomen Bulb 19 Fr. 01/03/25 1318 Abdomen less than 1 Urethral Catheter Single lumen;Temperature probe 16 Fr. 01/03/25 0720 -- 1 Arterial Line 01/03/25 Left Radial 01/03/25 0715 Radial 1 Arterial Line 01/03/25 Right Radial 01/03/25 0810 Radial 1 Pulmonary Artery Catheter 01/03/25 Internal jugular Right 01/03/25 0730 Internal jugular 1 GCS: Juanpablo Coma Scale Score: 15 Review of Systems Constitutional: Negative for chills and fever. HENT: Negative for congestion. Eyes: Negative for visual disturbance. Respiratory: Negative for cough and shortness of breath. Cardiovascular: Negative for chest pain. Gastrointestinal: Positive for abdominal pain. Negative for nausea and vomiting. Genitourinary: Negative for difficulty urinating. Musculoskeletal: Negative for arthralgias. Neurological: Negative for dizziness and headaches. Psychiatric/Behavioral: Negative for confusion. Vital signs: Vitals: 01/04/25 0845 BP: (!) 155/60 Pulse: 68 Resp: Temp: SpO2: Intake/Output Summary (Last 24 hours) at 01/04/2025 0916 Last data filed at 01/04/2025 0600 Gross per 24 hour Intake 12530 ml Output 3680 ml Net 6536 ml Physical Exam: Sedation was held for the purposes of examination. Physical Exam Constitutional: Appearance: He is ill-appearing. HENT: Head: Normocephalic. Nose: Nose normal. Mouth/Throat: Pharynx: Oropharynx is clear. Eyes: Pupils: Pupils are equal, round, and reactive to light. Cardiovascular: Rate and Rhythm: Normal rate and regular rhythm. Pulses: Normal pulses. Radial pulses are 2+ on the right side and 2+ on the left side. Dorsalis pedis pulses are 2+ on the right side and 2+ on the left side. Heart sounds: Normal heart sounds. Pulmonary: Effort: Pulmonary effort is normal. Breath sounds: Normal breath sounds. Abdominal: General: Bowel sounds are normal. There is distension. Palpations: Abdomen is soft. Comments: Surgical incision from OLT; CDI Genitourinary: Comments: FC in place Musculoskeletal: Right lower leg: Edema present. Left lower leg: Edema present. Skin: General: Skin is warm and dry. Capillary Refill: Capillary refill takes 2 to 3 seconds. Neurological: Mental Status: He is alert and oriented to person, place, and time. GCS: GCS eye subscore is 4. GCS verbal subscore is 5. GCS motor subscore is 6. Results Review I have reviewed the latest lab and imaging results. Assessment and Plan: This patient is critically ill. Assessment & Plan Decompensation of cirrhosis of liver (CMS/HCC) Present on Admission: Yes Hx of ETOH cirrhosis c/b ascites, HE, EV, SBP S/p OLT Pre-Op MELD 27 Transfused 8uPRBC, 8uFFP, 1uPlt, 500mL Albumin, 5L Crystalloid intra-op; ascites ~ 1.5L & EBL 4.8L 25g albumin Q8 Drains per primary Continue abx Anti-rejection and immunosuppressive medications per primary Tobacco use disorder, continuous Present on Admission: Yes Continue home Wellbutrin Insomnia Present on Admission: Yes Continue home trazodone PRN Anemia Present on Admission: Yes Elevated INR Present on Admission: Unknown Coagulopathy Present on Admission: Unknown Lab Results Component Value Date HGB 6.7 (L) 01/04/2025 , Lab Results Component Value Date HCT 20.3 (L) 01/04/2025 Received 1u PRBC and 1u FFP overnight Hgb 6.7 and INR 2 this AM; ordered 2u PRBC and 1u FFP MA<40 on TEG; ordered 1u platelets Transfuse as appropriate for Hgb>8 and INR<2 Continue vitamin K Will continue to trend SBP (spontaneous bacterial peritonitis) Present on Admission: Yes Hx of On prophylactic cipro prior to translant Essential (primary) hypertension Present on Admission: Yes Increased coreg to 12.5mg BID PRN labetalol and hydralazine for SBP>160 GERD (gastroesophageal reflux disease) Present on Admission: Yes Continue home PPI Anxiety Present on Admission: Yes Continue home Lexapro Thrombocytopenia (CMS/HCC) Present on Admission: Yes Plt count 61 postop Plt 51 today Transfuse for plt>20 Will continue to monitor NINA (acute kidney injury) Present on Admission: Unknown Baseline Cr ~0.8 Creatinine, Plasma Date Value Ref Range Status 01/04/2025 1.64 (H) 0.70 - 1.20 mg/dL Final Consider renal U/S as appropriate Monitor renal function daily Avoid nephrotoxins, avoid NSAIDs, renally dose medications Camilla Soto APRN, DNP * Care Plan - Eleazar Bradford RN - 01/04/2025 12:14 AM EST Problem: Adult Inpatient Plan of Care Goal: Plan of Care Review Outcome: Ongoing, Progressing Flowsheets (Taken 01/04/202512) Progress: improving Outcome Evaluation: pt is stable and progressing through recovery appropriately Plan of Care Reviewed With: patient Goal: Patient-Specific Goal (Individualized) Outcome: Ongoing, Progressing Flowsheets Taken 01/04/20253 by Eleazar Bradford, RN Patient/Family-Specific Goals (Include Timeframe): pain will be monitered and at an appropriate level for the rest of this shift Individualized Care Needs: pain Taken 01/03/2025 1600 by Elyssa Augustin RN Anxieties, Fears or Concerns: paulette Goal: Absence of Hospital-Acquired Illness or Injury Outcome: Ongoing, Progressing Goal: Optimal Comfort and Wellbeing Outcome: Ongoing, Progressing Problem: Fall Injury Risk Goal: Absence of Fall and Fall-Related Injury Outcome: Ongoing, Progressing Problem: Anxiety Signs/Symptoms Goal: Optimized Energy Level (Anxiety Signs/Symptoms) Outcome: Ongoing, Progressing Goal: Optimized Cognitive Function (Anxiety Signs/Symptoms) Outcome: Ongoing, Progressing Goal: Improved Mood Symptoms (Anxiety Signs/Symptoms) Outcome: Ongoing, Progressing Goal: Improved Sleep (Anxiety Signs/Symptoms) Outcome: Ongoing, Progressing Goal: Enhanced Social, Occupational or Functional Skills (Anxiety Signs/Symptoms) Outcome: Ongoing, Progressing Goal: Improved Somatic Symptoms (Anxiety Signs/Symptoms) Outcome: Ongoing, Progressing * Clinician Note - Damián Simmons MD - 01/03/2025 6:33 PM EST Post-Operative Check Note Orly White is a 44 y.o. male POD#0 from: orthotopic liver transplant, choledochocholedcostomy, placement of choledochal stent S: Pt is doing well. Reports that pain is controlled. Nausea is present but no vomiting, reports zofran helps. Denies CP and SOB. O: Blood pressure (!) 179/65, pulse 81, temperature 36.9 ??C (98.4 ??F), resp. rate 18, height 1.88 m (6' 2.02 ), weight 105 kg (232 lb 9.4 oz), SpO2 98%. Physical Exam: GEN: NAD, laying comfortably in bed CV: RRR Pulm: equal chest rise bilaterally, breathing comfortably on 4L NC Abd: soft, appropriately tender to palpation, non-distended; surgical dressing in place, clean dry and intact Ext: No LE swelling/edema, SCDs in place Neuro: No focal deficits Pulses: DP: 2+ b/l PT: 2+ b/l Drains: MOLLY drains x 2. Both bloody + serosanguinous fluid A/P: Orly White is a 44 y.o. male POD#0 from Procedure(s) (LRB): TRANSPLANT, LIVER (N/A). Currently stable on the floor and recovering well post-operatively. Please call with any questions or concerns. Damián Simmons MD PGY-1 Anesthesiology & Critical Care Medicine * Care Plan - Linden Palmer - 01/03/2025 5:19 PM EST Problem: Mechanical Ventilation Invasive Goal: Effective Communication Outcome: Met Goal: Optimal Device Function Outcome: Met Goal: Mechanical Ventilation Liberation Outcome: Met Goal: Optimal Nutrition Delivery Outcome: Met Goal: Absence of Device-Related Skin and Tissue Injury Outcome: Met Goal: Absence of Ventilator-Induced Lung Injury Outcome: Met * Assessment & Plan Note - Camilla Soto APRN, DNP - 01/03/2025 3:54 PM EST Associated Problem(s): Decompensation of cirrhosis of liver (CMS/HCC) Hx of ETOH cirrhosis c/b ascites, HE, EV, SBP S/p OLT Pre-Op MELD 27 Transfused 8uPRBC, 8uFFP, 1uPlt, 500mL Albumin, 5L Crystalloid intra-op; ascites ~ 1.5L & EBL 4.8L 25g albumin Q8 Drains per primary Continue abx Anti-rejection and immunosuppressive medications per primary * Assessment & Plan Note - Camilla Soto APRN, DNP - 01/03/2025 3:54 PM EST Associated Problem(s): Tobacco use disorder, continuous Continue home Wellbutrin as appropriate * Assessment & Plan Note - Camilla Soto APRN, DNP - 01/03/2025 3:54 PM EST Associated Problem(s): Essential (primary) hypertension Continue home coreg as appropriate PRN labetalol for SBP>160 * Assessment & Plan Note - Camilla Soto APRN, DNP - 01/03/2025 3:54 PM EST Associated Problem(s): GERD (gastroesophageal reflux disease) Continue home PPI * Assessment & Plan Note - Camilla Soto APRN, DNP - 01/03/2025 3:54 PM EST Associated Problem(s): Anxiety Continue home Lexapro * Assessment & Plan Note - Camilla Soto APRN, DNP - 01/03/2025 3:54 PM EST Associated Problem(s): Insomnia Continue home trazodone as appropriate * Assessment & Plan Note - Camilla Soto APRN, DNP - 01/03/2025 3:54 PM EST Associated Problem(s): SBP (spontaneous bacterial peritonitis) Hx of On prophylactic cipro prior to translant * Assessment & Plan Note - Camilla Soto APRN, DNP - 01/03/2025 3:54 PM EST Associated Problem(s): Thrombocytopenia (CMS/HCC) Plt count 61 postop Transfuse for plt>20 Will continue to monitor * Assessment & Plan Note - Camilla Soto APRN, DNP - 01/03/2025 3:54 PM EST Associated Problem(s): On mechanically assisted ventilation (CMS/HCC) (Resolved 01/04/2025) Intubated for procedure CXR pending Continue aggressive pulm secretion mobilization Wean sedation as tolerated; daily PST Wean mechanical ventilator as tolerated Continue chlorhexidine per vent bundle PRN CXR, blood gasses and nebs * Assessment & Plan Note - Camilla Soto APRN, DNP - 01/03/2025 3:54 PM EST Associated Problem(s): Anemia Lab Results Component Value Date HGB 8.3 (L) 01/03/2025 , Lab Results Component Value Date HCT 26.1 (L) 01/03/2025 Will continue to monitor Transfuse as appropriate for Hgb>8 * Assessment & Plan Note - Camilla Soto APRN, DNP - 01/03/2025 3:54 PM EST Associated Problem(s): Elevated INR INR 2.3 Ordered 1u FFP Continue vitamin K Will continue to trend Transfuse for INR<2 * H&P - Camilla Soto APRN, DNP - 01/03/2025 3:18 PM ESTAssociated Order(s): Critical Care Post-Procedure Diagnose(s): Decompensation of cirrhosis of liver (CMS/HCC) Critical Care Performed by: Camilla Soto APRN, DNP Authorized by: Camilla Soto APRN, DNP Critical care provider statement: Critical care time (minutes): 75 Critical care time was exclusive of: Separately billable procedures and treating other patients Critical care was time spent personally by me on the following activities: Development of treatmentplan with patient or surrogate, discussions with consultants, discussions with primary provider, evaluation of patient's response to treatment, examination of patient, ordering and performing treatments and interventions, ordering and review of laboratory studies, ordering and review of radiographic studies and ventilator management 01/03/25 Orly White Consulted for critical care management by Transplant Surgery. HPI Orly White is a 44 y.o. male who presents with Decompensation of cirrhosis of liver (CMS/HCC) s/p OLT. PMH significant for HTN, GERD, anxiety, TUD, and alcoholic cirrhosis c/b ascites, HE, SBP, and EV. Received 8u PRBC, 8 FFP, 1 plt, 500mL albumin, and 5L IVF with ~1.5L ascites and EBL 4.8L intra- operatively. [facility] consulted postop for critical care needs. Patient examined at bedside on arrival to unit. Remains sedated and mechanically ventilated. SBP>160 - ordered PRN labetalol. INR2.3 - ordered 1 FFP. Will f/u on postop labs and wean sedation as able. Lines/Drains/Tubes: . Active . Name Placement date Placement time Site Days CVC Double Lumen 01/03/25 Right Internal jugular 01/03/25 0730 Internal jugular less than 1 CVC Triple Lumen 01/03/25 Right Internal jugular 01/03/25 0730 Internal jugular less than 1 CVC Triple Lumen 01/03/25 Left Subclavian 01/03/25 0730 Subclavian less than 1 Peripheral IV 01/02/25 Left;Posterior Wrist 01/02/25 1000 Wrist 1 Peripheral IV 01/03/25 Right;Posterior Hand 01/03/25 0730 Hand less than 1 Closed/Suction Drain 1 Right;Ventral Abdomen Bulb 19 Fr. 01/03/25 1317 Abdomen less than 1 Closed/Suction Drain 2 Left;Ventral Abdomen Bulb 19 Fr. 01/03/25 1318 Abdomen less than 1 Urethral Catheter Single lumen;Temperature probe 16 Fr. 01/03/25 0720 -- less than 1 Arterial Line 01/03/25 Left Radial 01/03/25 0715 Radial less than 1 Arterial Line 01/03/25 Right Radial 01/03/25 0810 Radial less than 1 Pulmonary Artery Catheter 01/03/25 Internal jugular Right 01/03/25 0730 Internal jugular less than 1 Last antibiotic: Patient recently received an antibiotic (last 12 hours) Showing orders from other encounters Date/Time Action Medication Dose 01/03/25 1359 Given piperacillin-tazobactam (Zosyn) injection 4.5 g 01/03/25 1201 Given piperacillin-tazobactam (Zosyn) injection 4.5 g 01/03/25 1005 Given piperacillin-tazobactam (Zosyn) injection 4.5 g 01/03/25 0805 Given piperacillin-tazobactam (Zosyn) injection 4.5 g Per the patient questionnaire: Patient answers are not available for this visit. Medical/Surgical/Social/Family History I have reviewed and updated the patient history. Home Medications: Home Medications[1] Allergies Amoxicillin GCS: Juanpablo Coma Scale Score: 15 Review of Systems Unable to perform ROS: Intubated Vital signs: Vitals: 01/03/25 1515 BP: Pulse: 75 Resp: 18 Temp: 37.2 ??C (99 ??F) SpO2: 97% Intake/Output Summary (Last 24 hours) at 01/03/2025 1518 Last data filed at 01/03/2025 1407 Gross per 24 hour Intake 15861 ml Output 1040 ml Net 82796 ml Physical Exam: Sedation was held for the purposes of examination. Physical Exam Constitutional: Appearance: He is ill-appearing. Interventions: He is sedated and intubated. HENT: Head: Normocephalic. Nose: Nose normal. Mouth/Throat: Pharynx: Oropharynx is clear. Eyes: Pupils: Pupils are equal, round, and reactive to light. Cardiovascular: Rate and Rhythm: Normal rate and regular rhythm. Pulses: Normal pulses. Radial pulses are 2+ on the right side and 2+ on the left side. Dorsalis pedis pulses are 2+ on the right side and 2+ on the left side. Heart sounds: Normal heart sounds. Pulmonary: Effort: He is intubated. Breath sounds: Normal breath sounds. Abdominal: Palpations: Abdomen is soft. Comments: OLT incision present Genitourinary: Comments: FC in place Musculoskeletal: Right lower leg: Edema present. Left lower leg: Edema present. Skin: General: Skin is warm and dry. Capillary Refill: Capillary refill takes 2 to 3 seconds. Neurological: GCS: GCS eye subscore is 1. GCS verbal subscore is 1. GCS motor subscore is 1. Results Review I have reviewed the latest lab and imaging results. Assessment and Plan: This patient is critically ill. Assessment & Plan Decompensation of cirrhosis of liver (CMS/HCC) Present on Admission: Yes Hx of ETOH cirrhosis c/b ascites, HE, EV, SBP S/p OLT Pre-Op MELD 27 Transfused 8uPRBC, 8uFFP, 1uPlt, 500mL Albumin, 5L Crystalloid intra-op; ascites ~ 1.5L & EBL 4.8L 25g albumin Q8 Drains per primary Continue abx Anti-rejection and immunosuppressive medications per primary Tobacco use disorder, continuous Present on Admission: Yes Continue home Wellbutrin as appropriate Insomnia Present on Admission: Yes Continue home trazodone as appropriate Anemia Present on Admission: Yes Lab Results Component Value Date HGB 8.3 (L) 01/03/2025 , Lab Results Component Value Date HCT 26.1 (L) 01/03/2025 Will continue to monitor Transfuse as appropriate for Hgb>8 SBP (spontaneous bacterial peritonitis) Present on Admission: Yes Hx of On prophylactic cipro prior to translant Essential (primary) hypertension Present on Admission: Yes Continue home coreg as appropriate PRN labetalol for SBP>160 GERD (gastroesophageal reflux disease) Present on Admission: Yes Continue home PPI Anxiety Present on Admission: Yes Continue home Lexapro Thrombocytopenia (CMS/HCC) Present on Admission: Yes Plt count 61 postop Transfuse for plt>20 Will continue to monitor On mechanically assisted ventilation (CMS/HCC) Present on Admission: Not Applicable Intubated for procedure CXR pending Continue aggressive pulm secretion mobilization Wean sedation as tolerated; daily PST Wean mechanical ventilator as tolerated Continue chlorhexidine per vent bundle PRN CXR, blood gasses and nebs Elevated INR Present on Admission: Unknown INR 2.3 Ordered 1u FFP Continue vitamin K Will continue to trend Transfuse for INR<2 Camilla Soto APRN, PATTI [1] Medications Prior to Admission Medication Sig Dispense Refill buPROPion SR (Wellbutrin [...] 2 escitalopram (Lexapro) 10 MG tablet Take 1 tablet by mouth daily. 30 tablet 3 ferrous sulfate 324 MG tablet delayed-release Take 1 tablet by mouth daily with breakfast. Do not crush, chew, or split. 30 tablet 0 furosemide (Lasix) 20 MG tablet Take 1 tablet by mouth daily. lactulose (Chronulac) 10 GM/15ML solution Take 15 mL by mouth 3 times a day. 1350 mL 3 Multiple Vitamins-Minerals (Mens Multi Health Formula) tablet Take by mouth. nutrional drink glucose control (Boost Glucose Control) liquid liquid Take 237 mL by mouth 2 times a day. 50477 mL 3 pantoprazole (Protonix) 40 MG EC tablet Take 1 tablet by mouth 2 times a day. Do not crush, chew, or split. 60 tablet 0 rifAXIMin (Xifaxan) 550 MG tablet Take 1 tablet by mouth 2 times a day. 180 tablet 3 spironolactone (Aldactone) 50 MG tablet Take 1 tablet by mouth daily. traZODone (Desyrel) 50 MG tablet Take 1 tablet by mouth nightly. 90 tablet 1 * Assessment & Plan Note - Camilla Soto APRN, DNP - 01/03/2025 11:37 AM EST Associated Problem(s): Hypotension Continue levophed gtt as needed * Consults - Marybeth Barriga - 01/03/2025 10:00 AM ESTAssociated Order(s): IP CONSULT TO PASTORAL CARE Pastoral Care Note Patient Profile: Spiritual Assessment: Interventions: Pastoral Care Outcomes: Patient was in OR. Family was not present. Consulted with care team briefly. Marybeth Barriga Cosigned by Kellee Cornejo at 2025 10:03 AM EST Associated attestation - Kellee Cornejo - 2025 10:03 AM EST This is to attest box turner grad intern chart note has been reviewed and okayed. * Perioperative Nursing Note - Ritu Buenrostro RN - 01/03/2025 8:14 AM EST Liver Pump Times: ON: 01/02/2025 @ 1703 OFF: 01/03/2025 @ 1006 TOTAL: 17 hours and 3 minutes * Op Note - Jude Gillis MD - 01/03/2025 8:14 AM EST OPERATIVE NOTE: Backbench Procedure, Whole Liver Allograft PATIENT NAME Orly White DATE: 01/03/2025 PREOPERATIVE DIAGNOSIS: Chronic Liver failure POSTOPERATIVE DIAGNOSIS: Same NAME OF OPERATION: 04942 - Backbench standard preparation of cadaver donor whole liver graft prior to allotransplantation - ATTENDING SURGEON: Jude Peters MD RESIDENT SURGEON: DONOR UNOS ID: [id number]: Normal anatomy OPERATION IN DETAIL: The liver was removed from the intact packaging after confirming the donor blood type and UNOS ID. It was removed from the OCS machine, placed in the ice-cold bath of UW solution, and inspected for injuries and abnormalities. First, the vena cava was dissected free from retroperitoneal and diaphragmatic attachments. All branches including adrenal and phrenic veins were identified and ligated. Next, the portal vein was identified and dissected from the surrounding hilar structures. Small tributaries were ligated and divided. The celiac, splenic, left gastric, and common hepatic arteries were then dissected free from surrounding structures. The artery and vein were flushed and checked for leaks. The liver was left in preservative solution until ready for implantation. Jude Peters MD * Op Note - Satnam Beckford MD - 01/03/2025 8:14 AM EST Operative Note Date: 01/03/2025 Location: [facility] Name: Orly White, : 1980, UNOS DONOR ID: [id number] DONOR ABO: A Recipient ABO: A Negative Diagnoses: Pre-op Diagnosis Decompensation of cirrhosis of liver (CMS/HCC) Post-op Diagnosis Decompensation of cirrhosis of liver (CMS/HCC) Procedure(s): Orthotopic liver transplant Choledochocholedochostomy Placement of 8F pediatric feeding tube endobiliary stent Attending Surgeon(s): * Satnam Beckford - Primary * Jude Gillis - Assisting Special Considerations: The complexity for this case was beyond the experience level of an available trainee. Therefore, I asked Dr. Jude Albrecht to assist me with this case. Dr. Albrecht assisted with the hepatectomy, vascular anastomoses, and reperfusion. Bell Person(s): * Negro Cr MD - Resident - Assisting Anesthesia: General ASA: IV Blood Administration: Blood Product Administration History Product Date Volume Status Transfuse RBC 01/05/2025 300 mL Completed 01/05/25 0553 Transfuse RBC 01/04/2025 300 mL Completed 01/04/25 2131 Transfuse fresh frozen plasma 01/04/2025 250 mL Completed 01/04/25 1420 Transfuse platelets 01/04/2025 219 mL Completed 01/04/25 1211 Transfuse RBC 01/04/2025 311 mL Completed 01/04/25 1124 Transfuse RBC 01/04/2025 300 mL Completed 01/04/25 0953 Transfuse RBC 01/04/2025 Completed 01/04/25 0156 Transfuse fresh frozen plasma 01/03/2025 Completed 01/03/25 2103 Transfuse fresh frozen plasma 01/03/2025 363 mL Completed 01/03/25 1630 Transfuse RBC RBC 01/03/2025 350 mL Completed 01/03/25 1502 Transfuse fresh frozen plasma Plasma 01/03/2025 300 mL Completed 01/03/25 1502 Transfuse platelets PLT 01/03/2025 250 mL Completed 01/03/25 1502 Transfuse RBC RBC 01/03/2025 350 mL Completed 01/03/25 1502 Transfuse fresh frozen plasma Plasma 01/03/2025 300 mL Completed 01/03/25 1502 Transfuse RBC RBC 01/03/2025 350 mL Completed 01/03/25 1502 Transfuse fresh frozen plasma Plasma 01/03/2025 300 mL Completed 01/03/25 1502 Transfuse RBC RBC 01/03/2025 350 mL Completed 01/03/25 1502 Transfuse fresh frozen plasma Plasma 01/03/2025 300 mL Completed 01/03/25 1502 Transfuse RBC RBC 01/03/2025 350 mL Completed 01/03/25 1502 Transfuse fresh frozen plasma Plasma 01/03/2025 300 mL Completed 01/03/25 1502 Transfuse RBC RBC 01/03/2025 350 mL Completed 01/03/25 1502 RBC 01/03/2025 350 mL Completed 01/03/25 1502 Transfuse fresh frozen plasma Plasma 01/03/2025 300 mL Completed 01/03/25 1502 Transfuse RBC RBC 01/03/2025 350 mL Completed 01/03/25 1502 Transfuse fresh frozen plasma Plasma 01/03/2025 300 mL Completed 01/03/25 1502 Plasma 01/03/2025 300 mL Completed 01/03/25 1502 Transfuse RBC 12/20/2024 300 mL Stopped Transfuse RBC 12/17/2024 300 mL Completed 12/18/24 0202 Transfuse RBC 12/17/2024 600 mL Completed 12/17/24 1308 Estimated Blood Loss: 5000mL Drains: Closed/Suction Drain 1 Right;Ventral Abdomen Bulb 19 Fr. (Active) Site Description Clean;Dry 01/06/25 0400 Dressing Status Intact;New drainage 01/06/25 0400 Drainage Appearance Bloody 01/06/25 0400 Status Tubing stripped per MD Order;Open to gravity drainage 01/06/25 0400 Output (mL) 75 mL 01/06/25 0800 Closed/Suction Drain 2 Left;Ventral Abdomen Bulb 19 Fr. (Active) Site Description Leaking at site 01/06/25 0400 Dressing Status Old drainage 01/06/25 0400 Drainage Appearance Bloody 01/06/25 0400 Status Open to gravity drainage 01/06/25 0400 Output (mL) 90 mL 01/06/25 0600 Urethral Catheter Single lumen;Temperature probe 16 Fr. (Active) Site Assessment Clean;Skin intact 01/06/25 040 CAUTI: Collection Container Standard drainage bag 01/06/25 040 CAUTI: Securement Method Securing device (Describe) 01/06/25 040 CAUTI: Specimen Collection Port Covered with Alcohol Cap Yes 01/05/251999 CAUTI: Urinary Catheter Indication Yes, meets indication reason 01/05/251999 CAUTI: Urinary Catheter Indication Reasons ICU patient requiring output monitoring q 1-2 hours withinterventions 01/05/251999 Output (mL) 100 mL 01/06/25 0800 [REMOVED] NG/OG Hurst Sump Orogastric Left mouth (Removed) Placement Verification X-ray 01/03/25 1600 Tube Placement Length Marking (cm) 55 01/03/25 1600 Asher Exit Point with Permanent Marker Checked 01/03/25 1600 Site Assessment Clean;Dry;Intact 01/03/25 1600 Surrounding Skin Dry;Intact 01/03/25 1600 Secured by Tape 01/03/25 1600 Secured Location ETT 01/03/25 1600 NG/OG Interventions Skin assessed;Low intermittent suction 01/03/25 1600 Specimen: Specimens ID Source Frozen? 1 Liver No Description: [place] liver A Blood, Arterial B Blood, Arterial C Blood, Arterial D Blood, Arterial E Blood, Arterial Findings: siginificant distension of colon, redundant sigmoid. Indications for the Procedure: Orly White is a 44 y.o. year old male with Liver cirrhosissecondary to alcohol use disorder. Patient was underwent a transplant evaluation by a multidisciplinary team and was deemed to be an appropriate candidate for a liver transplant. Patient was placed on the waitlist and a suitable donor became available. Risk and benefits of the operation were discussed and patient agreed to the procedure. Procedure in detail: Position: Supine Prep: Patient prepped with Chloraprep and draped in sterile fashion with Ioban Antibiotics: have been ordered and given within 1 hours of incision. Prophylaxis: Bilateral sequential compression devices placed Donor UNOS ID and ABO compatibility confirmed. Pre-procedure timeout performed Exposure: Bilateral subcostal incision with midline extension performed. Falciform ligament ligatedwith heavy silk ties. Rosas retractor placed. Adhesions: Moderate Collaterals: Severe Evidence of SBP: No Recipient Hepatectomy: Hilar Dissection Cystic duct identified and ligated. Bile duct dissected below the cystic duct insertion and ligatedwith 2-0 silk ties Right and left hepatic arteries dissected and ligated with 2-0 silk ties. Hepatic artery dissected down to takeoff of GDA. Normal anatomy: Yes Portal vein dissected from surrounding lymph nodes and ligated at the bifurcation. Portal vein thrombus No Falciform ligament taken down to the confluence of the hepatic veins. Right and left triangular ligaments taken down. Circumferential caval dissection performed above the right renal vein and above the hepatic vein confluence and caval control obtained. Donor backtable details: Liver fat: none Liver size match: good Capsule tears: none Bile duct: normal Arterial anatomy: early bifurcation of right hepatic artery from the coeliac artery. Anastomosis: Donor supra-hepatic cava to recipient supra-hepatic cava with running 3-0 Prolene suture Donor infra-hepatic cava to recipient infra-hepatic cava with running 4-0 Prolene suture Donor portal vein to recipient portal vein with running 6-0 prolene suture Donor ceoliac artery to recipient right artery with 6-0 prolene suture Donor bile duct to recipient bile duct with 5-0 PDS. Reperfusion: good Fibrinolysis: No Bile Formation: Yes Stent: Yes Drain: Two 19F Velasquez drains placed in lauren-hepatic space Counts correct: Yes Closure: Fascia closed with running #1 PDS suture. Skin closed with manju and running absorbable suture. Complications: none Transfusions: A: PRBC: 8u B: FFP: 8u C: Platelets: 1 D: Cryo:0 E: Cell saver: 300ml F: Fluids: 5000ml crystalloid, 500ml albumin There were NO signs of surgical site infection (SSI) present at the time of surgery (PATOS). Complications: None; patient tolerated the procedure well. Submitted by: Satnam Beckford MD - 01/06/2025 * Brief Op Note - Negro Cr MD - 01/03/2025 8:14 AM EST Brief Op Note: Liver Transplant PATIENT NAME Orly White DATE: 01/03/25 PREOPERATIVE DIAGNOSIS Chronic Liver failure History of esophageal varicies Hepatic encephalopathy Coagulopathy History of Spontaneous Bacterial Peritonitis Obesity (BMI 30) Hypertension History of alcohol abuse POSTOPERATIVE DIAGNOSIS: Same NAME OF OPERATION: 72205 - Orthotopic cadaveric liver allotransplantation, bicaval technique. 20371 - Choledochocholedcostomy 73097 - Placement of choledochal stent ATTENDING SURGEON: Satnam Beckford MD INCOME TAX RETURN PREPARER SURGEON(S): Jude Albrecht MD RESIDENT SURGEON(S): Negro Cr MD ATTENDING ANESTHESIOLOGIST: Josafat Rivera MD INCOME TAX RETURN PREPARER ANESTHESIOLOGIST: Aravind Benton MD SPECIMEN: None DISPOSITION: Ibrahima - Op Note - Disposition Options: Transferred to the ICU in hemodynamically stable condition. IMPLANTS: 7 Fr Endobiliary Stent DRAINS: Ibrahima - Op Note - Drains: 19 Fr Velasquez Drain to bulb suction x 2 FLUIDS: 5000 mL Crystalloid 500 mL Albumin 300 Cellsaver 8 units PRBC 8 FFP 1 Platelets 0 Cryoprecipitate EBL: 4800 ml Cosigned by Satnam Beckford MD at 2025 3:15 PM EST Associated attestation - Satnam Beckford MD - 2025 3:15 PM EST I was present for the entirety of the procedure(s). Satnam Beckford MD * Perioperative Nursing Note - Ritu Buenrostro RN - 01/03/2025 7:00 AM EST Blood bank verified donor ABO as A Positive at 0825 on 01/03/2025. * Significant Event - Yari Quesada MD - 01/03/2025 12:30 AM EST Patient to OR today for orthotopic liver transplantation - History and physical note at admission/most recent progress note reviewed and with no changes - The risks, benefits, indications, contraindications, and surgical alternatives were explained to the patient. Specifically, the risks of surgery, including bleeding, infection, injury to nearby organs or structures, risk of rejection, need for additional surgery or procedures, wound complications, , and complications of general anesthesia. Commonly associated risks of the procedure where also discussed with the patient in detial. The patient participated in the discussion and was given an opportunity to ask questions. All questions where answered to the patient's verbal satisification. - Written and informed consent was then signed and is located in the patient's chart. - NPO since 01/02 2100 Yari Quesada MD Department of Urology, PGY-1 Pager: [phone] * Care Plan - Allison Rosenbaum RN - 01/02/2025 9:00 PM EST Problem: Adult Inpatient Plan of Care Goal: Plan of Care Review Outcome: Ongoing, Progressing Flowsheets (Taken 01/02/20252099) Progress: improving Plan of Care Reviewed With: patient Problem: Fall Injury Risk Goal: Absence of Fall and Fall-Related Injury Outcome: Ongoing, Progressing Intervention: Identify and Manage Contributors Flowsheets (Taken 01/02/20252099) Medication Review/Management: medications reviewed Self-Care Promotion: independence encouraged BADL personal objects within reach Intervention: Promote Injury-Free Environment Flowsheets (Taken 01/02/20252099) Safety Promotion/Fall Prevention: activity supervised assistive device/personal items within reach fall prevention program maintained clutter-free environment maintained lighting adjusted nonskid shoes/slippers when out of bed room organization consistent safety round/check completed Problem: Anxiety Signs/Symptoms Goal: Optimized Cognitive Function (Anxiety Signs/Symptoms) Intervention: Support and Promote Cognitive Ability Flowsheets (Taken 01/02/20252099) Communication Support Strategies: active listening utilized Goal: Improved Mood Symptoms (Anxiety Signs/Symptoms) Intervention: Optimize Emotion and Mood Flowsheets (Taken 01/02/20252099) Supportive Measures: active listening utilized relaxation techniques promoted verbalization of feelings encouraged * Progress Notes - Greg Sibley PharmD - 01/02/2025 4:27 PM EST Images from the original note were not included. Pharmacy Consult - Medication History Note HPI: Orly White is a 44 y.o. male admitted for Decompensation of cirrhosis of liver (CMS/HCC). Allergies: Amoxicillin Home Medications Prior to Admission Medications Prescriptions Last Dose Informant Patient Reported? Taking? Multiple Vitamins-Minerals (Mens Multi Health Formula) tablet Yes Yes Sig: Take by mouth. buPROPion SR (Wellbutrin SR) 150 MG 12 hr tablet No Yes Sig: Take 1 tablet by mouth daily for 3 days, THEN 1 tablet 2 times a day. Do not crush, chew, or split. Note (12/17/2024): Patient currently takes 1 tablet twice daily carvedilol (Coreg) 6.25 MG tablet No Yes Sig: Take 1 tablet by mouth 2 times a day. ciprofloxacin (Cipro) 500 MG tablet No Yes Sig: Take 1 tablet by mouth daily. escitalopram (Lexapro) 10 MG tablet No Yes Sig: Take 1 tablet by mouth daily. ferrous sulfate 324 MG tablet delayed-release No Yes Sig: Take 1 tablet by mouth daily with breakfast. Do not crush, chew, or split. furosemide (Lasix) 20 MG tablet Yes Yes Sig: Take 1 tablet by mouth daily. lactulose (Chronulac) 10 GM/15ML solution No Yes Sig: Take 15 mL by mouth 3 times a day. nutrional drink glucose control (Boost Glucose Control) liquid liquid No Yes Sig: Take 237 mL by mouth 2 times a day. pantoprazole (Protonix) 40 MG EC tablet No Yes Sig: Take 1 tablet by mouth 2 times a day. Do not crush, chew, or split. rifAXIMin (Xifaxan) 550 MG tablet No Yes Sig: Take 1 tablet by mouth 2 times a day. spironolactone (Aldactone) 50 MG tablet Yes Yes Sig: Take 1 tablet by mouth daily. traZODone (Desyrel) 50 MG tablet No Yes Sig: Take 1 tablet by mouth nightly. Facility-Administered Medications: None Patients Preferred Pharmacy* [facility] - [place], [place] - [address] [facility] [address] [facility] [address] [place] [address] [address] [facility] [place] - [address] [facility] [address] [facility] [place] [address] *May default to [facility] if patient is enrolled to [id number] Service. Pharmacy Benefits ORLY WHITE [facility] (MEDIMPACT) Covered: <b>Retail</b> Not covered: Mail Order Unknown: Specialty, Long-Term Care BIN: [id number] : 1980 Group ID: [id number] PCN: [id number] Legal sex: M Group name: Address: [address] [place] [id number] Additional Comments: reviewed med list with patient's over the phone Greg Sibley PharmD 01/02/2025 4:27 PM I agree with the information documented above. All student/grad intern notes from collection of information has been reviewed. Medications match pt indications and PMHx. * Care Plan - Jolene Florian RN - 01/02/2025 4:18 PM EST Problem: Fall Injury Risk Goal: Absence of Fall and Fall-Related Injury Outcome: Ongoing, Progressing Intervention: Identify and Manage Contributors Flowsheets (Taken 01/02/2025 1617) Medication Review/Management: medications reviewed dosing adjusted Self-Care Promotion: independence encouraged BADL personal objects within reach Intervention: Promote Injury-Free Environment Flowsheets (Taken 01/02/2025 1615) Safety Promotion/Fall Prevention: activity supervised assistive device/personal items within reach clutter-free environment maintained fall prevention program maintained lighting adjusted mobility aid in reach nonskid shoes/slippers when out of bed room organization consistent safety round/check completed toileting scheduled * Progress Notes - DearMariela RN - 01/02/2025 12:22 PM EST Case Management Adult Initial Progress Note Orly White 44 y.o. male CSN: [id number] Admission: 01/02/2025 9:05 AM Primary Problem: Decompensation of cirrhosis of liver (CMS/HCC) Internet Database Specialist reviewed chart and spoke with patient to complete this Initial Case Management Assessment. PCP: Param Eng DO Emergency Contact: Extended Emergency Contact Information Primary Emergency Contact: Patricia White Address[address] [address] [place] Relation: Spouse Preferred language: Amharic Insurance: Primary Visit Coverage Payer Plan Sponsor Code Group Number Group Name [facility] Primary Visit Coverage Subscriber Subscriber ID Subscriber Name Subscriber N Subscriber Address [id number] ORLY WHITE [id number] [address] [place] [id number] Secondary Visit Coverage Payer Plan Sponsor Code Group Number Group Name [employer] [place] Secondary Visit Coverage Subscriber Subscriber ID Subscriber Name Subscriber SSN Subscriber Address [id number] Orly White [id number] [place] [address] Patient information: Pt admitted for liver transplant. Daily Living Activities: Pt awakens around 6 PM. Pt states he does not sleep well. Mind won't shut off . Pt can fall asleep but awakens often. Eats breakfast and watches TV. Pt states he could walk up a flight of steps but would be winded. Lower extremity edema. Last paracentesis appox 2 months ago with 2.7 liters removed. 2 other paracentesis in past. Pt on Spironaldactone and Lasix. Lactulose for at least 3 bowel movements per day. 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 Pt still driving. [address] [place] [address] Current DME: No DME at this time. Pt had requested walker prior to admission. 2-3 falls since May. Bruising only , no broken bones.. Income Information: working now on [employer] income = 900 per month. Pt has applied for social security. Pending. Housing Circumstances-Z Codes: 2 story home. [address]. Bed and bath on ground floor. [place] water. Patient Referred to: Anticipated Discharge Date: TBD Patient's Discharge Goal: Pt would agree to [facility] stay if needed. He has had rehab stay at [facility] in past. Assistance Available at Discharge: = Primary Mother is secondary. Discharge Transport: Follow Up Transport: Home Health / Home Infusion / Outpatient Dialysis Services: No history of home health. No history of home infusion. No history of dialysis. Living Will/Advance Directive/Power of Imaging Clerk /Guardian: can make medical decisions if pt can not. Additional Comments: spar finisher met with pt at bedside. Pt alert and interactive. Room air. Mariela Carmona Dear, RN * Progress Notes - Laura Muñiz LCSW - 01/02/2025 11:02 AM EST Transplant Social Work Progress Note Identifying Information: Patient Name: Orly White Date of : 1980 Clinical Summary: Per team, [facility] is aware of the patient's admission due to possible liver transplant. Txmartina FERREIRA is actively collaborating with the multidisciplinary team to support ongoing psychosocial needs related to transplant during patient's admission. Laura Muñiz LCSW, [facility] Transplant Physicist [facility] * H&P - Félix Simmons, TITA, PATTI - 01/02/2025 7:48 AM EST Abdominal Transplant Surgery H&P CHIEF COMPLAINT: Decompensated Cirrhosis, possible Liver translplant HISTORY OF PRESENT ILLNESS: Orly White is a 44yo male with a PMH of decompensated alcohol related cirrhosis, ascites, HE, SBP, depression, anxiety, GERD, and HTN who presents to [facility] on 01/02 forpossible liver transplant. On assessment, the patient is alert and oriented. Denies F/C/N/V/D as well as any open wounds or sores. Dr. Beckford spoke with the patient at bedside and reviewed liver transplant operation as well as associated risks. All questions answered to satisfaction. Patient stated that he took all of his morningmedications prior to arrival to the hospital. Will hold daily diuretics starting 01/03 and assess need post-operatively. MELD 3.0: 27 at 01/02/2025 9:40 AM MELD-Na: 26 at 01/02/2025 9:40 AM Calculated from: Serum Creatinine: 0.85 mg/dL (Using min of 1 mg/dL) at 01/02/2025 9:40 AM Serum Sodium: 139 mmol/L (Using max of 137 mmol/L) at 01/02/2025 9:40 AM Total Bilirubin: 13.2 mg/dL at 01/02/2025 9:40 AM Serum Albumin: 2.9 g/dL at 01/02/2025 9:40 AM INR(ratio): 2.4 at 01/02/2025 9:40 AM Age at listin years Sex: Male at 01/02/2025 9:40 AM PAST MEDICAL HISTORY Past Medical History[1] PAST MEDICAL HISTORY Surgical History[2] FAMILY MEDICAL HISTORY Family History[3] SOCIAL HISTORY Social History Socioeconomic History Marital status: Spouse name: Not on file Number of children: Not on file Years of education: Not on file Highest education level: Not on file Occupational History Not on file Tobacco Use Smoking status: Never Passive exposure: Current Smokeless tobacco: Current Types: Chew Substance and Sexual Activity Alcohol use: Not Currently Alcohol/week: 4.0 standard drinks of alcohol Types: 4 Cans of beer per week Comment: Quit 2 months ago Drug use: Never Sexual activity: Yes Partners: Female Other Topics Concern Occupational Exposure No Social History Narrative Not on file Social Drivers of Health Financial Resource Strain: Not on file Food Insecurity: No Food Insecurity (12/18/2024) Hunger Vital Sign Worried About Running Out of Food in the Last Year: Never true Ran Out of Food in the Last Year: Never true Recent Concern: Food Insecurity - Food Insecurity Present (10/20/2024) Hunger Vital Sign Worried About Running Out of Food in the Last Year: Sometimes true Ran Out of Food in the Last Year: Sometimes true Transportation Needs: No Transportation Needs (12/18/2024) PRAPARE - Transportation Lack of Transportation (Medical): No Lack of Transportation (Non-Medical): No Physical Activity: Not on file Stress: Not on file Social Connections: Not on file Intimate Partner Violence: Not At Risk (12/18/2024) Humiliation, Afraid, Rape, and Kick questionnaire Fear of Current or Ex-Partner: No Emotionally Abused: No Physically Abused: No Sexually Abused: No Housing Stability: Unknown (12/18/2024) Housing Stability Vital Sign Unable to Pay for Housing in the Last Year: No Number of Times Moved in the Last Year: Not on file Homeless in the Last Year: No Recent Concern: Housing Stability - High Risk (10/20/2024) Housing Stability Vital Sign Unable to Pay for Housing in the Last Year: Yes Number of Times Moved in the Last Year: 0 Homeless in the Last Year: No MEDICATIONS Medications Ordered Prior to Encounter[4] ALLERGIES Allergies[5] REVIEW OF SYSTEMS 14-point ROS negative except as above in HPI. PHYSICAL EXAM GENERAL: NAD, adult male sitting in bed EYES: PERRL + scleral icterus HENT: No lesions in anterior nares; no lesions in oropharynx, head atraumatic and normocephalic NECK: Supple. No thyromegaly or adenopathy. No JVD noted. The trachea appears midline. RESP: Symmetric expansion; no retractions. Clear to auscultation bilaterally. CARD: RRR, without appreciable murmur, rubs, or gallop. Extremities: +LE edema, no cyanosis or clubbing. Pulses palpable x4. GI: No organomegaly or masses. Nontender nondistended. Soft BS present x 4 quadrants. SKIN: No rash, sores, lesions or subcutaneous nodules. : voids NEURO: GCS 15 LABS Results from last 7 days Lab Units 01/02/25 0940 SODIUM mmol/L 139 POTASSIUM mmol/L 4.2 CHLORIDE mmol/L 107 CO2 mmol/L 22 BUN mg/dL 14 CREATININE mg/dL 0.85 CALCIUM mg/dL 8.6* BILIRUBIN TOTAL mg/dL 13.2* ALKALINE PHOSPHATASE U/L 134* ALT U/L 28 AST U/L 58* GLUCOSE mg/dL 83 Results from last 7 days Lab Units 01/02/25 0940 WBC 10*3/uL 2.84* HEMOGLOBIN g/dL 8.7* HEMATOCRIT % 28.6* PLATELETS 10*3/uL 72* Lab Results Component Value Date CALCIUM 8.6 (L) 01/02/2025 PHOS 3.7 12/20/2024 MELD 3.0: 27 at 01/02/2025 9:40 AM MELD-Na: 26 at 01/02/2025 9:40 AM Calculated from: Serum Creatinine: 0.85 mg/dL (Using min of 1 mg/dL) at 01/02/2025 9:40 AM Serum Sodium: 139 mmol/L (Using max of 137 mmol/L) at 01/02/2025 9:40 AM Total Bilirubin: 13.2 mg/dL at 01/02/2025 9:40 AM Serum Albumin: 2.9 g/dL at 01/02/2025 9:40 AM INR(ratio): 2.4 at 01/02/2025 9:40 AM Age at listin years Sex: Male at 01/02/2025 9:40 AM ASSESSMENT Orly White is a 44yo male with a PMH of decompensated alcohol related cirrhosis, ascites, HE, SBP, depression, anxiety, GERD, and HTN who presents to [facility] on 01/02 for possible liver transplant. Decompensated Alcohol related Cirrhosis (POA) Ascites (POA) EV (POA) HE (POA) Coagulopathy (POA) - MELD 3.0: 27 on 01/02; ABO: A- - 10/22/24 CT A/P w/ IV contrast: Morphologic changes of the liver consistent with parenchymal disease. Wedge-shaped hyperenhancement in the left hepatic lobe favoring transient hepatic attenuation differences; Hypoattenuating subcentimeter lesions in the right hemiliver may represent cysts; Sequelaof portal hypertension with mild splenomegaly, small volume ascites, and portosystemic collaterals. - 11/09/24 Liver US: Patent hepatic vasculature with appropriate flow directionality. PLAN: - continue Home cipro for SBP ppx, will stop on 01/03 if going to OR for transplant - Continue home rifaximin & lactulose - will hold daily diuretics for 01/03 and assess need post-operatively. 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 - 12/30 Hgb 8.9, Plt 79 PLAN: - continue home coreg 6.25mg BID, first dose in PM - continue home ferrous sulfate GERD (POA) - continue home pantoprazole 40mg BID, first dose in PM HTN (POA) - continue home coreg 6.25 BID, first dose in PM Anxiety/Depression (POA) - continue home escitalopram 10mg daily, first dose on 01/03 Hx of TUD (POA) - continue home wellbutrin 150mg BID, first dose in PM Insomnia (POA) - continue home trazodone 50mg nightly Edited by: Félix Simmons, SEO ASSISTANT, DNP at 01/02/2025 [id number] Patient educated on transplant surgery evaluation process, listing, surgery time and expectations for follow-up and immunosuppressive medications. I spent 45 minutes chart review, counseling patient/family regarding diagnosis, prognosis, and treatment plan (including risks and benefits), discussing case with care team members, and discussing case with consultants and formulating the plan. [1] Past Medical History: Diagnosis Date Anxiety Cirrhosis (CMS/HCC) Depression Enterocolitis due to Clostridium difficile, not specified as recurrent 11/04/2024 GERD (gastroesophageal reflux disease) Hypertension Patient on waiting list for liver transplant 12/30/2024 [2] Past Surgical History: Procedure Laterality Date VASECTOMY [3] No family history on file. [4] No current facility-administered medications on file prior to encounter. Current Outpatient Medications on File Prior to Encounter Medication Sig Dispense Refill buPROPion SR (Wellbutrin [...] 2 escitalopram (Lexapro) 10 MG tablet Take 1 tablet by mouth daily. 30 tablet 3 ferrous sulfate 324 MG tablet delayed-release Take 1 tablet by mouth daily with breakfast. Do not crush, chew, or split. 30 tablet 0 lactulose (Chronulac) 10 GM/15ML solution Take 15 mL by mouth 3 times a day. 1350 mL 3 Multiple Vitamins-Minerals (Mens Multi Health Formula) tablet Take by mouth. nutrional drink glucose control (Boost Glucose Control) liquid liquid Take 237 mL by mouth 2 times a day. 54753 mL 3 pantoprazole (Protonix) 40 MG EC tablet Take 1 tablet by mouth 2 times a day. Do not crush, chew, or split. 60 tablet 0 rifAXIMin (Xifaxan) 550 MG tablet Take 1 tablet by mouth 2 times a day. 180 tablet 3 traZODone (Desyrel) 50 MG tablet Take 1 tablet by mouth nightly. 90 tablet 1 [DISCONTINUED] escitalopram (Lexapro) 10 MG tablet Take 0.5 tablets by mouth daily. 15 tablet 3 [DISCONTINUED] furosemide (Lasix) 20 MG tablet Take 1 tablet by mouth daily. 90 tablet 3 [DISCONTINUED] spironolactone (Aldactone) 50 MG tablet Take 1 tablet by mouth daily. 30 each 3 [DISCONTINUED] traZODone (Desyrel) 50 MG tablet Take 0.5 tablets by mouth nightly. 45 tablet 1 [5] Allergies Allergen Reactions Amoxicillin Hives and Rash Childhood allergy documented in this encounter Plan of Treatment Upcoming Encounters Date Type Department Care Team (Late st Contact Info) Description 01/23/2025 8:40 AM EST Office Visit [facility] [address] [place] [address] [id number] rosemary-Paul 03/06/2025 11:10 AM EST Appointment [facility] [address] [place] [address] Natalya Valentine MD [address] [place] [address] Pending Results Name Type Priority Associated Diagnoses Date /Time Prepare Leukocyte Reduced RBC: 10 Units Blood Bank Routine 01/02/2025 9:23 AM EST Prepare Fresh Frozen Plasma: 5 Units Blood Bank Routine 01/02/2025 6:32 PM EST Prepare Leukocyte Reduced RBC: 10 Units Blood Bank Routine 01/02/2025 6:32 PM EST Prepare Leukocyte Reduced RBC: 6 Units Blood Bank STAT 01/03/2025 10:09 AM EST documented as of this encounter Procedures Procedure Name Priority Date/Time Associated Diagnosis Comments POCT GLUCOSE METER UNSOLICITED RESULTS Routine 01/16/2025 12:01 PM EST POCT GLUCOSE METER UNSOLICITED RESULTS Routine 01/16/2025 8:09 AM EST TACROLIMUS LEVEL Routine 01/16/2025 4:48 AM EST PROTHROMBIN TIME(PT) / INR Routine 01/16/2025 4:47 AM EST CBC W/O DIFFERENTIAL Routine 01/16/2025 4:47 AM EST PHOSPHORUS, PLASMA Routine 01/16/2025 4: 47 AM EST MAGNESIUM, PLASMA Routine 01/16/2025 4:4 7 AM EST COMPREHENSIVE METABOLIC PANEL, PLASMA Routine 01/16/2025 4:47 AM EST POCT GLUCOSE METER UNSOLICITED RESULTS Routine 01/15/2025 8:39 PM EST POCT GLUCOSE METER UNSOLICITED RESULTS Routine 01/15/2025 5:07 PM EST POCT GLUCOSE METER UNSOLICITED RESULTS Routine 01/15/2025 11:54 AM EST POCT GLUCOSE METER UNSOLICITED RESULTS Routine 01/15/2025 7:53 AM EST TACROLIMUS LEVEL Routine 01/15/2025 5:00 AM EST PROTHROMBIN TIME(PT) / INR Routine 01/15/2025 5:00 AM EST CBC W/O DIFFERENTIAL Routine 01/15/2025 5:00 AM EST PHOSPHORUS, PLASMA Routine 01/15/2025 5: 00 AM EST MAGNESIUM, PLASMA Routine 01/15/2025 5:0 0 AM EST COMPREHENSIVE METABOLIC PANEL, PLASMA Routine 01/15/2025 5:00 AM EST POCT GLUCOSE METER UNSOLICITED RESULTS Routine 01/14/2025 8:25 PM EST POCT GLUCOSE METER UNSOLICITED RESULTS Routine 01/14/2025 5:01 PM EST POCT GLUCOSE METER UNSOLICITED RESULTS Routine 01/14/2025 11:29 AM EST POCT GLUCOSE METER UNSOLICITED RESULTS Routine 01/14/2025 7:59 AM EST TACROLIMUS LEVEL Routine 01/14/2025 4:56 AM EST PROTHROMBIN TIME(PT) / INR Routine 01/14/2025 4:56 AM EST CBC W/O DIFFERENTIAL Routine 01/14/2025 4:56 AM EST PHOSPHORUS, PLASMA Routine 01/14/2025 4: 56 AM EST MAGNESIUM, PLASMA Routine 01/14/2025 4:5 6 AM EST COMPREHENSIVE METABOLIC PANEL, PLASMA Routine 01/14/2025 4:56 AM EST POCT GLUCOSE METER UNSOLICITED RESULTS Routine 01/13/2025 7:34 PM EST POCT GLUCOSE METER UNSOLICITED RESULTS Routine 01/13/2025 6:12 PM EST US GUIDED NEEDLE BIOPSY LIVER Routine 01/13/2025 4:26 PM EST SURGICAL PATHOLOGY EXAM Timed 01/14/20 4:16 PM EST POCT GLUCOSE METER UNSOLICITED RESULTS Routine 01/13/2025 11:10 AM EST HERPES SIMPLEX VIRUS 1/2 QUALITATIVE BY PCR, SERUM Routine 01/13/2025 10:59 AM EST SHAILESH SUÁREZ VIRUS (EBV) QUANTITATIVE PCR Routine 01/13/2025 10:59 AM EST CYTOMEGALOVIRUS (CMV) QUANTITATIVE PCR Routine 01/13/2025 10:59 AM EST POCT GLUCOSE METER UNSOLICITED RESULTS Routine 01/13/2025 8:20 AM EST POCT GLUCOSE METER UNSOLICITED RESULTS Routine 01/13/2025 6:36 AM EST POCT GLUCOSE METER UNSOLICITED RESULTS Routine 01/13/2025 5:52 AM EST TACROLIMUS LEVEL Routine 01/13/2025 4:43 AM EST PROTHROMBIN TIME(PT) / INR Routine 01/13/2025 4:43 AM EST CBC W/O DIFFERENTIAL Routine 01/13/2025 4:43 AM EST PHOSPHORUS, PLASMA Routine 01/13/2025 4: 43 AM EST MAGNESIUM, PLASMA Routine 01/13/2025 4:4 3 AM EST DIRECT BILIRUBIN, PLASMA STAT Add-on 01/13/2025 4:43 AM EST COMPREHENSIVE METABOLIC PANEL, PLASMA Routine 01/13/2025 4:43 AM EST POCT GLUCOSE METER UNSOLICITED RESULTS Routine 2025 7:24 PM EST POCT GLUCOSE METER UNSOLICITED RESULTS Routine 2025 5:10 PM EST POCT GLUCOSE METER UNSOLICITED RESULTS Routine 2025 2:13 PM EST POCT GLUCOSE METER UNSOLICITED RESULTS Routine 2025 1:32 PM EST POCT GLUCOSE METER UNSOLICITED RESULTS Routine 2025 1:08 PM EST FL ERC Routine 2025 12:59 PM EST Elevated INR ERCP Routine 2025 12:58 PM EST Hyperbilirubinemi a Liver transplant recipient (CMS/HCC) POCT GLUCOSE METER UNSOLICITED RESULTS Routine 2025 8:35 AM EST POCT GLUCOSE METER UNSOLICITED RESULTS Routine 2025 7:50 AM EST POCT GLUCOSE METER UNSOLICITED RESULTS Routine 2025 6:53 AM EST POCT GLUCOSE METER UNSOLICITED RESULTS Routine 2025 6:13 AM EST POCT GLUCOSE METER UNSOLICITED RESULTS Routine 2025 5:53 AM EST TACROLIMUS LEVEL Routine 2025 4:51 AM EST PROTHROMBIN TIME(PT) / INR Routine 2025 4:51 AM EST CBC W/O DIFFERENTIAL Routine 2025 4:51 AM EST PHOSPHORUS, PLASMA Routine 2025 4: 51 AM EST MAGNESIUM, PLASMA Routine 2025 4:5 1 AM EST COMPREHENSIVE METABOLIC PANEL, PLASMA Routine 2025 4:51 AM EST POCT GLUCOSE METER UNSOLICITED RESULTS Routine 01/11/2025 8:22 PM EST POCT GLUCOSE METER UNSOLICITED RESULTS Routine 01/11/2025 4:54 PM EST POCT GLUCOSE METER UNSOLICITED RESULTS Routine 01/11/2025 11:35 AM EST POCT GLUCOSE METER UNSOLICITED RESULTS Routine 01/11/2025 8:06 AM EST PROTHROMBIN TIME(PT) / INR Routine 01/11/2025 5:41 AM EST TACROLIMUS LEVEL Routine 01/11/2025 4:49 AM EST CBC W/O DIFFERENTIAL Routine 01/11/2025 4:49 AM EST PHOSPHORUS, PLASMA Routine 01/11/2025 4: 49 AM EST MAGNESIUM, PLASMA Routine 01/11/2025 4:4 9 AM EST COMPREHENSIVE METABOLIC PANEL, PLASMA Routine 01/11/2025 4:49 AM EST POCT GLUCOSE METER UNSOLICITED RESULTS Routine 01/10/2025 8:42 PM EST POCT GLUCOSE METER UNSOLICITED RESULTS Routine 01/10/2025 5:02 PM EST MRCP W AND WO IV CONTRAST STAT 01/10/2025 4:22 PM EST US ABDOMEN DOPPLER COMPLETE STAT 01/10/2025 11:30 AM EST POCT GLUCOSE METER UNSOLICITED RESULTS Routine 01/10/2025 11:27 AM EST COMPREHENSIVE METABOLIC PANEL, PLASMA Routine 01/10/2025 9:38 AM EST POCT GLUCOSE METER UNSOLICITED RESULTS Routine 01/10/2025 7:30 AM EST POCT GLUCOSE METER UNSOLICITED RESULTS Routine 01/10/2025 6:14 AM EST POCT GLUCOSE METER UNSOLICITED RESULTS Routine 01/10/2025 5:23 AM EST TACROLIMUS LEVEL Routine 01/10/2025 5:13 AM EST PROTHROMBIN TIME(PT) / INR Routine 01/10/2025 5:13 AM EST CBC W/O DIFFERENTIAL Routine 01/10/2025 5:13 AM EST PHOSPHORUS, PLASMA Routine 01/10/2025 5: 13 AM EST MAGNESIUM, PLASMA Routine 01/10/2025 5:1 3 AM EST COMPREHENSIVE METABOLIC PANEL, PLASMA Routine 01/10/2025 5:13 AM EST POCT GLUCOSE METER UNSOLICITED RESULTS Routine 01/10/2025 12:35 AM EST POCT GLUCOSE METER UNSOLICITED RESULTS Routine 01/10/2025 12:05 AM EST PAP THERAPY Routine 01/10/2025 12:00 AM EST PEP THERAPY Routine 01/10/2025 12:00 AM EST PAP THERAPY Routine 01/09/2025 8:00 PM EST PEP THERAPY Routine 01/09/2025 8:00 PM EST POCT GLUCOSE METER UNSOLICITED RESULTS Routine 01/09/2025 7:52 PM EST POCT GLUCOSE METER UNSOLICITED RESULTS Routine 01/09/2025 5:02 PM EST PAP THERAPY Routine 01/09/2025 4:00 PM EST PEP THERAPY Routine 01/09/2025 4:00 PM EST PAP THERAPY Routine 01/09/2025 12:00 PM EST PEP THERAPY Routine 01/09/2025 12:00 PM EST POCT GLUCOSE METER UNSOLICITED RESULTS Routine 01/09/2025 11:23 AM EST PAP THERAPY Routine 01/09/2025 8:00 AM EST PEP THERAPY Routine 01/09/2025 8:00 AM EST POCT GLUCOSE METER UNSOLICITED RESULTS Routine 01/09/2025 8:00 AM EST POCT GLUCOSE METER UNSOLICITED RESULTS Routine 01/09/2025 5:38 AM EST EXTRA TUBE LAVENDER TOP Routine 01/10/20 5:13 AM EST EXTRA TUBE LIGHT GREEN TOP Routine 01/09/2025 5:13 AM EST EXTRA TUBES Routine 01/09/2025 5:13 AM EST CBC W/O DIFFERENTIAL Add-On 01/09/2025 5:13 AM EST PHOSPHORUS, PLASMA Add-On 01/09/2025 5: 13 AM EST MAGNESIUM, PLASMA Add-On 01/09/2025 5:1 3 AM EST COMPREHENSIVE METABOLIC PANEL, PLASMA Add-On 01/09/2025 5:13 AM EST TACROLIMUS LEVEL Routine 01/09/2025 5:07 AM EST PROTHROMBIN TIME(PT) / INR Routine 01/09/2025 5:07 AM EST PAP THERAPY Routine 01/09/2025 12:00 AM EST PEP THERAPY Routine 01/09/2025 12:00 AM EST POCT GLUCOSE METER UNSOLICITED RESULTS Routine 01/08/2025 11:28 PM EST POCT GLUCOSE METER UNSOLICITED RESULTS Routine 01/08/2025 8:09 PM EST PAP THERAPY Routine 01/08/2025 8:00 PM EST PEP THERAPY Routine 01/08/2025 8:00 PM EST POCT GLUCOSE METER UNSOLICITED RESULTS Routine 01/08/2025 5:11 PM EST PAP THERAPY Routine 01/08/2025 4:00 PM EST PEP THERAPY Routine 01/08/2025 4:00 PM EST XR CHEST 1 VIEW Routine 01/08/2025 12:15 PM EST PAP THERAPY Routine 01/08/2025 12:00 PM EST PEP THERAPY Routine 01/08/2025 12:00 PM EST POCT GLUCOSE METER UNSOLICITED RESULTS Routine 01/08/2025 11:30 AM EST CBC WITH AUTO DIFFERENTIAL Routine 01/08/2025 8:21 AM EST PHOSPHORUS, PLASMA Routine 01/08/2025 8: 21 AM EST MAGNESIUM, PLASMA Routine 01/08/2025 8:2 1 AM EST COMPREHENSIVE METABOLIC PANEL, PLASMA Routine 01/08/2025 8:21 AM EST POCT GLUCOSE METER UNSOLICITED RESULTS Routine 01/08/2025 8:04 AM EST PAP THERAPY Routine 01/08/2025 8:00 AM EST PEP THERAPY Routine 01/08/2025 8:00 AM EST POCT GLUCOSE METER UNSOLICITED RESULTS Routine 01/08/2025 6:36 AM EST TACROLIMUS LEVEL Routine 01/08/2025 5:05 AM EST PROTHROMBIN TIME(PT) / INR Routine 01/08/2025 5:04 AM EST EXTRA TUBE LAVENDER TOP Routine 01/09/20 4:56 AM EST EXTRA TUBES Routine 01/08/2025 4:56 AM EST PAP THERAPY Routine 01/08/2025 12:00 AM EST PEP THERAPY Routine 01/08/2025 12:00 AM EST POCT GLUCOSE METER UNSOLICITED RESULTS Routine 01/07/2025 11:52 PM EST POCT GLUCOSE METER UNSOLICITED RESULTS Routine 01/07/2025 8:57 PM EST PAP THERAPY Routine 01/07/2025 8:00 PM EST PEP THERAPY Routine 01/07/2025 8:00 PM EST CBC WITH AUTO DIFFERENTIAL Timed 01/07/2025 5:54 PM EST PHOSPHORUS, PLASMA Timed 01/07/2025 5: 54 PM EST MAGNESIUM, PLASMA Timed 01/07/2025 5:5 4 PM EST COMPREHENSIVE METABOLIC PANEL, PLASMA Timed 01/07/2025 5:54 PM EST POCT GLUCOSE METER UNSOLICITED RESULTS Routine 01/07/2025 5:35 PM EST PAP THERAPY Routine 01/07/2025 4:00 PM EST PEP THERAPY Routine 01/07/2025 4:00 PM EST PAP THERAPY Routine 01/07/2025 12:00 PM EST PEP THERAPY Routine 01/07/2025 12:00 PM EST POCT GLUCOSE METER UNSOLICITED RESULTS Routine 01/07/2025 11:37 AM EST PAP THERAPY Routine 01/07/2025 9:50 AM EST PAP THERAPY Routine 01/07/2025 9:50 AM EST PAP THERAPY Routine 01/07/2025 9:50 AM EST PAP THERAPY Routine 01/07/2025 9:50 AM EST PAP THERAPY Routine 01/07/2025 9:50 AM EST PEP THERAPY Routine 01/07/2025 9:50 AM EST PEP THERAPY Routine 01/07/2025 9:50 AM EST PEP THERAPY Routine 01/07/2025 9:50 AM EST PEP THERAPY Routine 01/07/2025 9:50 AM EST PEP THERAPY Routine 01/07/2025 9:50 AM EST POCT GLUCOSE METER UNSOLICITED RESULTS Routine 01/07/2025 8:14 AM EST CBC WITH AUTO DIFFERENTIAL Timed 01/07/2025 7:31 AM EST PHOSPHORUS, PLASMA Timed 01/07/2025 7: 31 AM EST MAGNESIUM, PLASMA Timed 01/07/2025 7:3 1 AM EST COMPREHENSIVE METABOLIC PANEL, PLASMA Timed 01/07/2025 7:31 AM EST POCT GLUCOSE METER UNSOLICITED RESULTS Routine 01/07/2025 6:02 AM EST TACROLIMUS LEVEL Routine 01/07/2025 4:38 AM EST POCT GLUCOSE METER UNSOLICITED RESULTS Routine 01/07/2025 12:56 AM EST PROTHROMBIN TIME(PT) / INR Routine 01/07/2025 12:56 AM EST POCT GLUCOSE METER UNSOLICITED RESULTS Routine 01/06/2025 6:00 PM EST CBC WITH AUTO DIFFERENTIAL Timed 01/06/2025 6:00 PM EST PHOSPHORUS, PLASMA Timed 01/06/2025 6: 00 PM EST MAGNESIUM, PLASMA Timed 01/06/2025 6:0 0 PM EST COMPREHENSIVE METABOLIC PANEL, PLASMA Timed 01/06/2025 6:00 PM EST POCT GLUCOSE METER UNSOLICITED RESULTS Routine 01/06/2025 5:07 PM EST POCT GLUCOSE METER UNSOLICITED RESULTS Routine 01/06/2025 11:47 AM EST PROTHROMBIN TIME(PT) / INR Timed 01/06/2025 11:44 AM EST PAP THERAPY Routine 01/06/2025 10:00 AM EST PEP THERAPY Routine 01/06/2025 10:00 AM EST XR ABDOMEN 1 VIEW STAT 01/06/2025 8:4 7 AM EST PROTHROMBIN TIME(PT) / INR Timed 01/06/2025 7:36 AM EST CBC W/O DIFFERENTIAL Timed 01/06/2025 7:36 AM EST PHOSPHORUS, PLASMA Timed 01/06/2025 7: 36 AM EST MAGNESIUM, PLASMA Timed 01/06/2025 7:3 6 AM EST COMPREHENSIVE METABOLIC PANEL, PLASMA Timed 01/06/2025 7:36 AM EST PAP THERAPY Routine 01/06/2025 6:00 AM EST PEP THERAPY Routine 01/06/2025 6:00 AM EST TACROLIMUS LEVEL Routine 01/06/2025 5:15 AM EST PROTHROMBIN TIME(PT) / INR Timed 01/06/2025 4:27 AM EST CBC W/O DIFFERENTIAL Timed 01/06/2025 4:27 AM EST XR CHEST 1 VIEW Routine 01/06/2025 2:41 AM EST POCT GLUCOSE METER UNSOLICITED RESULTS Routine 01/06/2025 12:19 AM EST PROTHROMBIN TIME(PT) / INR Timed 01/06/2025 12:15 AM EST CBC W/O DIFFERENTIAL Timed 01/06/2025 12:15 AM EST PHOSPHORUS, PLASMA Timed 01/06/2025 12 :15 AM EST MAGNESIUM, PLASMA Timed 01/06/2025 12: 15 AM EST COMPREHENSIVE METABOLIC PANEL, PLASMA Timed 01/06/2025 12:15 AM EST PAP THERAPY Routine 01/05/2025 10:00 PM EST PEP THERAPY Routine 01/05/2025 10:00 PM EST PROTHROMBIN TIME(PT) / INR Timed 01/05/2025 8:05 PM EST CBC W/O DIFFERENTIAL Timed 01/05/2025 8:05 PM EST POCT GLUCOSE METER UNSOLICITED RESULTS Routine 01/05/2025 6:31 PM EST PEP THERAPY Routine 01/05/2025 6:00 PM EST POCT GLUCOSE METER UNSOLICITED RESULTS Routine 01/05/2025 3:51 PM EST PROTHROMBIN TIME(PT) / INR Timed 01/05/2025 3:49 PM EST CBC W/O DIFFERENTIAL Timed 01/05/2025 3:49 PM EST PHOSPHORUS, PLASMA Timed 01/05/2025 3: 49 PM EST MAGNESIUM, PLASMA Timed 01/05/2025 3:4 9 PM EST COMPREHENSIVE METABOLIC PANEL, PLASMA Timed 01/05/2025 3:49 PM EST PAP THERAPY Routine 01/05/2025 2:00 PM EST PEP THERAPY Routine 01/05/2025 2:00 PM EST XR ABDOMEN 1 VIEW STAT 01/05/2025 12: 41 PM EST POCT GLUCOSE METER UNSOLICITED RESULTS Routine 01/05/2025 12:03 PM EST PROTHROMBIN TIME(PT) / INR Timed 01/05/2025 12:00 PM EST CBC W/O DIFFERENTIAL Timed 01/05/2025 12:00 PM EST GA CRITICAL CARE, E/M 30-74 MINUTES Routine 01/05/2025 11:03 AM EST Decompensation of cirrhosis of liver (CMS/HCC) PAP THERAPY Routine 01/05/2025 10:00 AM EST PEP THERAPY Routine 01/05/2025 10:00 AM EST PROTHROMBIN TIME(PT) / INR Timed 01/05/2025 8:39 AM EST CBC W/O DIFFERENTIAL Timed 01/05/2025 8:39 AM EST PHOSPHORUS, PLASMA Timed 01/05/2025 8: 39 AM EST MAGNESIUM, PLASMA Timed 01/05/2025 8:3 9 AM EST COMPREHENSIVE METABOLIC PANEL, PLASMA Timed 01/05/2025 8:39 AM EST POCT GLUCOSE METER UNSOLICITED RESULTS Routine 01/05/2025 8:38 AM EST PEP THERAPY Routine 01/05/2025 6:00 AM EST TACROLIMUS LEVEL Routine 01/05/2025 5:49 AM EST POCT GLUCOSE METER UNSOLICITED RESULTS Routine 01/05/2025 5:44 AM EST XR CHEST 1 VIEW Routine 01/05/2025 5:22 AM EST TRANSFUSE RED BLOOD CELLS Routine 01/05/2025 4:29 AM EST PREPARE RBC Routine 01/05/2025 4:19 AM EST PROTHROMBIN TIME(PT) / INR Timed 01/05/2025 3:54 AM EST CBC W/O DIFFERENTIAL Timed 01/05/2025 3:54 AM EST PROTHROMBIN TIME(PT) / INR Timed 01/05/2025 12:06 AM EST CBC W/O DIFFERENTIAL Timed 01/05/2025 12:06 AM EST PHOSPHORUS, PLASMA Timed 01/05/2025 12 :06 AM EST MAGNESIUM, PLASMA Timed 01/05/2025 12: 06 AM EST COMPREHENSIVE METABOLIC PANEL, PLASMA Timed 01/05/2025 12:06 AM EST PAP THERAPY Routine 01/04/2025 10:00 PM EST PEP THERAPY Routine 01/04/2025 10:00 PM EST TRANSFUSE RED BLOOD CELLS Routine 01/04/2025 8:31 PM EST PREPARE RBC Routine 01/04/2025 8:13 PM EST PROTHROMBIN TIME(PT) / INR Timed 01/04/2025 7:49 PM EST CBC W/O DIFFERENTIAL Timed 01/04/2025 7:49 PM EST PAP THERAPY Routine 01/04/2025 6:00 PM EST PEP THERAPY Routine 01/04/2025 6:00 PM EST TACROLIMUS LEVEL Routine 01/04/2025 5:26 PM EST POCT GLUCOSE METER UNSOLICITED RESULTS Routine 01/04/2025 5:24 PM EST PROTHROMBIN TIME(PT) / INR Timed 01/04/2025 3:01 PM EST CBC W/O DIFFERENTIAL Timed 01/04/2025 3:01 PM EST PHOSPHORUS, PLASMA Timed 01/04/2025 3: 01 PM EST MAGNESIUM, PLASMA Timed 01/04/2025 3:0 1 PM EST COMPREHENSIVE METABOLIC PANEL, PLASMA Timed 01/04/2025 3:01 PM EST PAP THERAPY Routine 01/04/2025 2:00 PM EST PEP THERAPY Routine 01/04/2025 2:00 PM EST TRANSFUSE FRESH FROZEN PLASMA Routine 01/04/2025 12:27 PM EST HEMOGLOBIN AND HEMATOCRIT, BLOOD Routine 01/04/2025 11:46 AM EST TRANSFUSE PLATELETS Routine 01/04/2025 1 1:36 AM EST POCT GLUCOSE METER UNSOLICITED RESULTS Routine 01/04/2025 11:14 AM EST US ABDOMEN DOPPLER COMPLETE Routine 01/04/2025 10:30 AM EST US ABDOMEN FOCUSED REGION Routine 01/04/2025 10:30 AM EST PREPARE PLATELETS Routine 01/04/2025 10: 15 AM EST TRANSFUSE RED BLOOD CELLS Routine 01/04/2025 10:11 AM EST PAP THERAPY Routine 01/04/2025 10:00 AM EST PEP THERAPY Routine 01/04/2025 10:00 AM EST GA CRITICAL CARE, E/M 30-74 MINUTES Routine 01/04/2025 9:16 AM EST Decompensation of cirrhosis of liver (CMS/HCC) PREPARE FRESH FROZEN PLASMA Routine 01/04/2025 8:51 AM EST TEG GLOBAL HEMOSTASIS WITH LYSIS Routine 01/04/2025 8:17 AM EST PREPARE RBC Routine 01/04/2025 8:04 AM EST TRANSFUSE RED BLOOD CELLS Routine 01/04/2025 8:00 AM EST PREPARE RBC Routine 01/04/2025 7:47 AM EST PROTHROMBIN TIME(PT) / INR Timed 01/04/2025 7:32 AM EST CBC W/O DIFFERENTIAL Timed 01/04/2025 7:32 AM EST PHOSPHORUS, PLASMA Timed 01/04/2025 7: 32 AM EST MAGNESIUM, PLASMA Timed 01/04/2025 7:3 2 AM EST COMPREHENSIVE METABOLIC PANEL, PLASMA Timed 01/04/2025 7:32 AM EST PAP THERAPY Routine 01/04/2025 6:16 AM EST PAP THERAPY Routine 01/04/2025 6:16 AM EST PAP THERAPY Routine 01/04/2025 6:16 AM EST PAP THERAPY Routine 01/04/2025 6:16 AM EST PAP THERAPY Routine 01/04/2025 6:16 AM EST PEP THERAPY Routine 01/04/2025 6:16 AM EST PEP THERAPY Routine 01/04/2025 6:16 AM EST PEP THERAPY Routine 01/04/2025 6:16 AM EST PEP THERAPY Routine 01/04/2025 6:16 AM EST PEP THERAPY Routine 01/04/2025 6:16 AM EST HEMOGLOBIN AND HEMATOCRIT, BLOOD Routine 01/04/2025 6:00 AM EST POCT GLUCOSE METER UNSOLICITED RESULTS Routine 01/04/2025 5:59 AM EST XR CHEST 1 VIEW Routine 01/04/2025 4:55 AM EST TRANSFUSE RED BLOOD CELLS Routine 01/04/2025 12:15 AM EST PREPARE RBC Routine 01/03/2025 11:49 PM EST POCT GLUCOSE METER UNSOLICITED RESULTS Routine 01/03/2025 11:34 PM EST PROTHROMBIN TIME(PT) / INR Timed 01/03/2025 11:29 PM EST CBC W/O DIFFERENTIAL Timed 01/03/2025 11:29 PM EST PHOSPHORUS, PLASMA Timed 01/03/2025 11 :29 PM EST MAGNESIUM, PLASMA Timed 01/03/2025 11: 29 PM EST COMPREHENSIVE METABOLIC PANEL, PLASMA Timed 01/03/2025 11:29 PM EST TRANSFUSE FRESH FROZEN PLASMA Routine 01/03/2025 8:18 PM EST PREPARE FRESH FROZEN PLASMA Routine 01/03/2025 7:57 PM EST PROTHROMBIN TIME(PT) / INR Timed 01/03/2025 7:23 PM EST CBC W/O DIFFERENTIAL Timed 01/03/2025 7:23 PM EST PHOSPHORUS, PLASMA Timed 01/03/2025 7: 23 PM EST MAGNESIUM, PLASMA Timed 01/03/2025 7:2 3 PM EST COMPREHENSIVE METABOLIC PANEL, PLASMA Timed 01/03/2025 7:23 PM EST POCT GLUCOSE METER UNSOLICITED RESULTS Routine 01/03/2025 5:29 PM EST EXTUBATION Routine 01/03/2025 5:10 PM EST POCT GLUCOSE METER UNSOLICITED RESULTS Routine 01/03/2025 4:13 PM EST TYLOR AURIS SURVEILLANCE BY PCR Routine 01/03/2025 4:09 PM EST MULTI DRUG RESISTANCE TEST Routine 01/03/2025 4:09 PM EST TRANSFUSE FRESH FROZEN PLASMA Routine 01/03/2025 4:03 PM EST BLOOD GAS PANEL WITH OXIMETRY, MIXED VENOUS Routine 01/03/2025 3:47 PM EST XR CHEST 1 VIEW Routine 01/03/2025 3:39 PM EST XR ABDOMEN 1 VIEW STAT 01/03/2025 3:3 9 PM EST GA CRITICAL CARE, E/M 30-74 MINUTES Routine 01/03/2025 3:18 PM EST Decompensation of cirrhosis of liver (CMS/HCC) PREPARE FRESH FROZEN PLASMA Routine 01/03/2025 3:02 PM EST BLOOD GAS PANEL, ARTERIAL STAT 01/03/2025 2:56 PM EST TEG GLOBAL HEMOSTASIS WITH LYSIS STAT 01/03/2025 2:54 PM EST APTT STAT 01/03/2025 2:54 PM EST PROTHROMBIN TIME(PT) / INR STAT 01/03/2025 2:54 PM EST FIBRINOGEN,QUANTITATIVE (CLOTTABLE) STAT 01/03/2025 2:54 PM EST CBC WITH AUTO DIFFERENTIAL STAT 01/03/2025 2:54 PM EST PHOSPHORUS, PLASMA STAT 01/03/2025 2: 54 PM EST MAGNESIUM, PLASMA STAT 01/03/2025 2:5 4 PM EST COMPREHENSIVE METABOLIC PANEL, PLASMA STAT 01/03/2025 2:54 PM EST POCT ARTERIAL BLOOD GAS GEM UNSOLICITED RESULTS Routine 01/03/2025 2:13 PM EST POCT ARTERIAL BLOOD GAS GEM UNSOLICITED RESULTS Routine 01/03/2025 1:38 PM EST TRANSFUSE RED BLOOD CELLS Routine 01/03/2025 12:59 PM EST POCT ARTERIAL BLOOD GAS GEM UNSOLICITED RESULTS Routine 01/03/2025 12:54 PM EST TRANSFUSE FRESH FROZEN PLASMA Routine 01/03/2025 12:24 PM EST TRANSFUSE PLATELETS Routine 01/03/2025 1 1:59 AM EST EXCEPTION TO STANDARD PRACTICE, PATHOLOGIST INTERPRETATION Routine 01/03/2025 11:54 AM EST PREPARE PLATELETS STAT 01/03/2025 11: 49 AM EST TEG GLOBAL HEMOSTASIS WITH LYSIS STAT 01/03/2025 11:46 AM EST Decompensation of cirrhosis of liver (CMS/HCC) APTT STAT 01/03/2025 11:46 AM EST Decompensation of cirrhosis of liver (CMS/HCC) PROTHROMBIN TIME(PT) / INR STAT 01/03/2025 11:46 AM EST Decompensation of cirrhosis of liver (CMS/HCC) FIBRINOGEN,QUANTITATIVE (CLOTTABLE) STAT 01/03/2025 11:46 AM EST Decompensation of cirrhosis of liver (CMS/HCC) PLATELET COUNT, BLOOD STAT 01/03/2025 11:46 AM EST Decompensation of cirrhosis of liver (CMS/HCC) POCT ARTERIAL BLOOD GAS GEM UNSOLICITED RESULTS Routine 01/03/2025 11:42 AM EST TRANSFUSE RED BLOOD CELLS Routine 01/03/2025 11:28 AM EST TRANSFUSE FRESH FROZEN PLASMA Routine 01/03/2025 11:27 AM EST POCT ARTERIAL BLOOD GAS GEM UNSOLICITED RESULTS Routine 01/03/2025 11:11 AM EST TRANSFUSE RED BLOOD CELLS Routine 01/03/2025 10:59 AM EST POCT ARTERIAL BLOOD GAS GEM UNSOLICITED RESULTS Routine 01/03/2025 10:58 AM EST TEG GLOBAL HEMOSTASIS WITH LYSIS STAT 01/03/2025 10:26 AM EST Decompensation of cirrhosis of liver (CMS/HCC) APTT STAT 01/03/2025 10:26 AM EST Decompensation of cirrhosis of liver (CMS/HCC) PROTHROMBIN TIME(PT) / INR STAT 01/03/2025 10:26 AM EST Decompensation of cirrhosis of liver (CMS/HCC) FIBRINOGEN,QUANTITATIVE (CLOTTABLE) STAT 01/03/2025 10:26 AM EST Decompensation of cirrhosis of liver (CMS/HCC) PLATELET COUNT, BLOOD STAT 01/03/2025 10:26 AM EST Decompensation of cirrhosis of liver (CMS/HCC) SURGICAL PATHOLOGY EXAM Routine 01/04/20 10:22 AM EST Decompensation of cirrhosis of liver (CMS/HCC) TRANSFUSE FRESH FROZEN PLASMA Routine 01/03/2025 10:21 AM EST TRANSFUSE RED BLOOD CELLS Routine 01/03/2025 10:18 AM EST POCT ARTERIAL BLOOD GAS GEM UNSOLICITED RESULTS Routine 01/03/2025 10:15 AM EST PREPARE FRESH FROZEN PLASMA STAT 01/03/2025 10:09 AM EST PREPARE RBC STAT 01/03/2025 10:09 AM EST TRANSFUSE FRESH FROZEN PLASMA Routine 01/03/2025 9:58 AM EST TRANSFUSE RED BLOOD CELLS Routine 01/03/2025 9:56 AM EST TRANSFUSE FRESH FROZEN PLASMA Routine 01/03/2025 9:49 AM EST TRANSFUSE RED BLOOD CELLS Routine 01/03/2025 9:47 AM EST POCT ARTERIAL BLOOD GAS GEM UNSOLICITED RESULTS Routine 01/03/2025 9:36 AM EST POCT ARTERIAL BLOOD GAS GEM UNSOLICITED RESULTS Routine 01/03/2025 9:03 AM EST TRANSFUSE RED BLOOD CELLS Routine 01/03/2025 8:39 AM EST TRANSFUSE FRESH FROZEN PLASMA Routine 01/03/2025 8:38 AM EST POCT ARTERIAL BLOOD GAS GEM UNSOLICITED RESULTS Routine 01/03/2025 8:37 AM EST TRANSFUSE RED BLOOD CELLS Routine 01/03/2025 8:07 AM EST QSTAT Routine 01/03/2025 8:01 AM EST TRANSFUSE FRESH FROZEN PLASMA Routine 01/03/2025 8:01 AM EST TRANSFUSE FRESH FROZEN PLASMA Routine 01/03/2025 8:00 AM EST POCT ARTERIAL BLOOD GAS GEM UNSOLICITED RESULTS Routine 01/03/2025 7:59 AM EST TEG GLOBAL HEMOSTASIS WITH LYSIS STAT 01/03/2025 7:53 AM EST Decompensation of cirrhosis of liver (CMS/HCC) APTT STAT 01/03/2025 7:53 AM EST Decompensation of cirrhosis of liver (CMS/HCC) PROTHROMBIN TIME(PT) / INR STAT 01/03/2025 7:53 AM EST Decompensation of cirrhosis of liver (CMS/HCC) FIBRINOGEN,QUANTITATIVE (CLOTTABLE) STAT 01/03/2025 7:53 AM EST Decompensation of cirrhosis of liver (CMS/HCC) CBC W/O DIFFERENTIAL STAT 01/03/2025 7:53 AM EST Decompensation of cirrhosis of liver (CMS/HCC) COMPREHENSIVE METABOLIC PANEL, PLASMA STAT 01/03/2025 7:53 AM EST Decompensation of cirrhosis of liver (CMS/HCC) TRANSPLANT, LIVER 01/03/2025 6:4 5 AM EST Decompensation of cirrhosis of liver (CMS/HCC) PREPARE FRESH FROZEN PLASMA STAT 01/03/2025 6:43 AM EST POCT GLUCOSE METER UNSOLICITED RESULTS Routine 01/03/2025 3:34 AM EST PROTHROMBIN TIME(PT) / INR Routine 01/03/2025 3:34 AM EST PREPARE FRESH FROZEN PLASMA Routine 01/02/2025 6:32 PM EST PREPARE RBC Routine 01/02/2025 6:32 PM EST SARS COV-2/COVID-19 BY PCR - RAPID STAT 01/02/2025 9:46 AM EST HEPATITIS B SURFACE ANTIBODY, QUANTITATIVE Routine 01/02/2025 9:40 AM EST HIV 1/2 ANTIBODY/ANTIGEN SCREEN W/REFLEX TO HIV 1/2 ANTIBODY DIFFERENTIATION STAT 01/02/2025 9:40 AM EST HEPATITIS C VIRUS (HCV) QUANTITATIVE PCR STAT 01/02/2025 9:40 AM EST HIV 1/2 ANTIBODY/ANTIGEN SCREEN WITH REFLEX TO HIV I/II DIFFERENTIATION STAT 01/02/2025 9:40 AM EST HEPATITIS C ANTIBODY W/REFLEX TO HCV QUANT PCR STAT 01/02/2025 9:40 AM EST HEPATITIS B CORE TOTAL AB (IGG AND IGM) STAT 01/02/2025 9:40 AM EST VITAMIN D 25 HYDROXY STAT 01/02/2025 9:40 AM EST HEPATITIS B SURFACE ANTIGEN STAT 01/02/2025 9:40 AM EST APTT STAT 01/02/2025 9:40 AM EST PROTHROMBIN TIME(PT) / INR STAT 01/02/2025 9:40 AM EST CBC WITH AUTO DIFFERENTIAL STAT 01/02/2025 9:40 AM EST TYPE AND SCREEN Routine 01/02/2025 9:40 AM EST COMPREHENSIVE METABOLIC PANEL, PLASMA STAT 01/02/2025 9:40 AM EST PREPARE RBC Routine 01/02/2025 9:23 AM EST documented in this encounter Results * (ABNORMAL) POCT glucose meter (01/16/2025 12:01 PM EST) POCT Glucose 158(H) 74 - 99 mg/dL 01/16/2025 12:04 PM EST [facility] Comment:Accuracy of a glucos e result obtained from a capillary whole blood specimen relies upon adequate, non-compromised capillary blood flow. If the capillary glucose result is not consistent with the patient's clinical signs and symptoms, glucose testing should be repeated with either an arterial or venous sample on the glucometer or sent to the main labortory for testing. Comment 01/16/2025 12:04 PM EST [facility] Shearing Machine Operator ID Shonda Kimbrough Augie 12:04 PM EST [facility] Device ID [id number] 01/16/2025 12:04 PM EST [facility] Specimen Type POC Capillary 01/16/2025 12:04 PM EST [facility] Blood Capillary blood specimen / Unknown 01/16/2025 12:01 PM EST 01/16/2025 12:04 PM EST Satnam Beckford MD LAB POINT OF CARE T EST DOCKED DEVICE UNSOLICITED RESULTS Final Result Performing Organization Address City/State/[facility] Co de Phone Number [facility] [address] [place] [address] * (ABNORMAL) POCT glucose meter (01/16/2025 8:09 AM EST) POCT Glucose 135(H) 74 - 99 mg/dL 01/16/2025 8:11 AM EST [facility] Comment:Accuracy of a glucos e result obtained from a capillary whole blood specimen relies upon adequate, non-compromised capillary blood flow. If the capillary glucose result is not consistent with the patient's clinical signs and symptoms, glucose testing should be repeated with either an arterial or venous sample on the glucometer or sent to the main labortory for testing. Comment 01/16/2025 8:11 AM EST [facility] Shearing Machine Operator ID Shonda Kimbrough Augie 8:11 AM EST [facility] Device ID [id number] 01/16/2025 8:11 AM EST [facility] Specimen Type POC Capillary 01/16/2025 8:11 AM EST [facility] Blood Capillary blood specimen / Unknown 01/16/2025 8:09 AM EST 01/16/2025 8:11 AM EST Satnam Beckford MD LAB POINT OF CARE T EST DOCKED DEVICE UNSOLICITED RESULTS Final Result Performing Organization Address City/[facility]/ZIP Co de Phone Number [facility] [address] [place] [address] * Tacrolimus (01/16/2025 4:48 AM EST) Tacrolimus 4.5 4.0 - 17.0 ng/mL 01/16/2025 8:10 AM EST [facility] Blood Venous blood specimen / Unknown Venipuncture / Unknown 01/16/2025 4:48 AM EST 01/16/2025 4:56 AM EST Narrative [facility] - 01/16/2025 8:10 AM EST Test performed by LC-MS/MS at the [facility]. This test was developed and its performance characteristics determined by [facility]. It has not been cleared or approved by the FDA. The laboratory is regulated under CLIA as qualified to perform high-complexity testing. This test is used for clinical purposes. Test performed by LC-MS/MS at the [facility]. This test was developed and its performance characteristics determined by [facility]. It has not been cleared or approved by the FDA. The laboratory is regulated under CLIA as qualified to perform high-complexity testing. This test is used for clinical purposes. Maciel Olson MD LAB BLOOD ORDERABLES Final Resul t [facility] [address] [place] [address] * Phosphorus (01/16/2025 4:47 AM EST) Phosphorus, Plasma 4.0 2.5 - 4.5 mg/dL 01/16/2025 5:24 AM EST [facility] Blood Venous blood specimen / Unknown Venipuncture / Unknown 01/16/2025 4:47 AM EST 01/16/2025 4:56 AM EST us Maciel Olson MD LAB BLOOD ORDERABLES Final Resul t [facility] [address] [place] [address] * Magnesium (01/16/2025 4:47 AM EST) Magnesium, Plasma 2.0 1.9 - 2.4 mg/dL 01/16/2025 5:24 AM EST [facility] Blood Venous blood specimen / Unknown Venipuncture / Unknown 01/16/2025 4:47 AM EST 01/16/2025 4:56 AM EST us Maciel Olson MD LAB BLOOD ORDERABLES Final Resul t Performing Organization Address City/[facility]/ZIP Co de Phone Number [facility] [address] [place] [address] * (ABNORMAL) Comprehensive metabolic panel (01/16/2025 4:47 AM EST) Glucose, Plasma 118(H) 74 - 99 mg/dL 01/16/2025 5:24 AM EST [facility] BUN, Plasma 45(H) 7 - 21 mg/dL 01/16/2025 5:24 AM EST [facility] Creatinine, Plasma 1.28(H) 0.70 - 1.20 mg/dL 01/16/2025 5:24 AM EST [facility] BUN/Creatinine Ratio 35 01/16/2025 5:24 AM EST [facility] Sodium, Plasma 138 136 - 145 mmol/L 01/16/2025 5:24 AM EST [facility] Potassium, Plasma 5.1(H) 3.6 - 4.9 mmol/L 01/16/2025 5:24 AM EST [facility] Chloride, Plasma 107 97 - 107 mmol/L 01/16/2025 5:24 AM EST [facility] CO2, Plasma 20(L) 22 - 29 mmol/L 01/16/2025 5:24 AM EST [facility] Anion Gap 11 6 - 16 mmol/L 01/16/2025 5:24 AM EST [facility] Total Calcium, Plasma 8.3(L) 8.9 - 10.2 mg/dL 01/16/2025 5:24 AM EST [facility] Total Protein 4.8(L) 6.3 - 7.9 g/dL 01/16/2025 5:24 AM EST [facility] Albumin, Plasma 2.7(L) 3.5 - 5.2 g/dL 01/16/2025 5:24 AM EST [facility] AST, Plasma 23 10 - 50 U/L 01/16/2025 5:24 AM EST [facility] ALT, Plasma 55(H) 10 - 50 U/L 01/16/2025 5:24 AM EST [facility] Alkaline Phosphatase, Plasma 93 40 - 115 U/L 01/16/2025 5:24 AM EST [facility] Total Bilirubin, Plasma 4.5(H) 0.2 - 1.1 mg/dL 01/16/2025 5:24 AM EST [facility] eGFRcr 69.9 mL/min/1.7 3m*2 01/16/2025 5:24 AM EST [facility] Comment:Reported eGFRcr in m L/min/1.73m2 is based the CKD-EPI 2020 equation that does not use a race coefficient. Blood Venous blood specimen / Unknown Venipuncture / Unknown 01/16/2025 4:47 AM EST 01/16/2025 4:56 AM EST us Maciel Olson MD LAB BLOOD ORDERABLES Final Resul t [facility] [address] [place] [address] * (ABNORMAL) CBC W/O Differential (01/16/2025 4:47 AM EST) WBC Count 8.27 3.70 - 10.30 10*3/uL LAB HEMATOLOGY METHOD 01/16/2025 5:03 AM EST [facility] RBC Count 2.56(L) 4.60 - 6.10 10*6/uL LAB HEMATOLOGY METHOD 01/16/2025 5:03 AM EST [facility] HGB 8.3(L) 13.7 - 17.5 g/dL LAB HEMATOLOGY METHOD 01/16/2025 5:03 AM EST [facility] HCT 26.1(L) 40.0 - 51.0 % LAB HEMATOLOGY METHOD 01/16/2025 5:03 AM EST [facility] Platelet Count 124(L) 155 - 369 10*3/uL LAB HEMATOLOGY METHOD 01/16/2025 5:03 AM EST [facility] MCV 102(H) 79 - 98 fL LAB HEMATOLOGY METHOD 01/16/2025 5:03 AM EST [facility] MCH 32.4(H) 26.0 - 32.0 pg LAB HEMATOLOGY METHOD 01/16/2025 5:03 AM EST [facility] MCHC 31.8 30.7 - 35.5 g/dL LAB HEMATOLOGY METHOD 01/16/2025 5:03 AM EST [facility] RDW 24.0(H) 11.5 - 14.5 % LAB HEMATOLOGY METHOD 01/16/2025 5:03 AM EST [facility] MPV 10.3 8.8 - 12.5 fL LAB HEMATOLOGY METHOD 01/16/2025 5:03 AM EST [facility] nRBC 0.0 <=0.0 per 100 WBCs LAB HEMATOLOGY METHOD 01/16/2025 5:03 AM EST [facility] Blood Venous blood specimen / Unknown Venipuncture / Unknown 01/16/2025 4:47 AM EST 01/16/2025 4:56 AM EST us Maciel Olson MD LAB BLOOD ORDERABLES Final Resul t [facility] [address] [place] [address] * (ABNORMAL) Prothrombin Time/INR (01/16/2025 4:47 AM EST) Prothrombin Time 14.6(H) 12.0 - 14.3 sec LAB COAGULATION METHOD 01/16/2025 5:22 AM EST [facility] INR 1.1 0.9 - 1.1 LAB COAGULATION METHOD 01/16/2025 5:22 AM EST [facility] Blood Venous blood specimen / Unknown Venipuncture / Unknown 01/16/2025 4:47 AM EST 01/16/2025 4:56 AM EST Narrative [facility] - 01/16/2025 5:22 AM EST OPTIMAL INR RANGES FOR PATIENT ON ORAL ANTICOAGULANT THERAPY Prevention of venous thromboembolism INR 2.0 to 3.0 In patients with heart disease: Atrial fibrillation INR 2.0 to 3.0 Valvular heart disease INR 2.0 to 3.0 Tissue heart valves INR 2.0 to 3.0 Mechanical prosthetic valves INR 2.5 to 3.5 Prevention of recurrent OR INR 2.5 to 3.5 us Maciel Olson MD LAB BLOOD ORDERABLES Final Resul t Performing Organization Address City/[facility]/ZIP Co de Phone Number [facility] [address] [place] [address] * (ABNORMAL) POCT glucose meter (01/15/2025 8:39 PM EST) POCT Glucose 187(H) 74 - 99 mg/dL 01/15/2025 8:41 PM EST [facility] Comment:Accuracy of a glucos e result obtained from a capillary whole blood specimen relies upon adequate, non-compromised capillary blood flow. If the capillary glucose result is not consistent with the patient's clinical signs and symptoms, glucose testing should be repeated with either an arterial or venous sample on the glucometer or sent to the main labortory for testing. Comment 01/15/2025 8:41 PM EST [facility] Shearing Machine Operator ID Elver Medel 01/15/2025 8:41 PM EST [facility] Device ID [id number] 01/15/2025 8:41 PM EST [facility] Specimen Type POC Capillary 01/15/2025 8:41 PM EST [facility] Blood Capillary blood specimen / Unknown 01/15/2025 8:39 PM EST 01/15/2025 8:41 PM EST us Satnam Beckford MD LAB POINT OF CARE T EST DOCKED DEVICE UNSOLICITED RESULTS Final Result Performing Organization Address City/[facility]/ZIP Co de Phone Number [facility] [address] [place] [address] * (ABNORMAL) POCT glucose meter (01/15/2025 5:07 PM EST) POCT Glucose 130(H) 74 - 99 mg/dL 01/15/2025 5:24 PM EST [facility] Comment:Accuracy of a glucos e result obtained from a capillary whole blood specimen relies upon adequate, non-compromised capillary blood flow. If the capillary glucose result is not consistent with the patient's clinical signs and symptoms, glucose testing should be repeated with either an arterial or venous sample on the glucometer or sent to the main labortory for testing. Comment 01/15/2025 5:24 PM EST [facility] Shearing Machine Operator ID Shonda Kimbrough Augie 5:24 PM EST [facility] Device ID [id number] 01/15/2025 5:24 PM EST [facility] Specimen Type POC Capillary 01/15/2025 5:24 PM EST [facility] Blood Capillary blood specimen / Unknown 01/15/2025 5:07 PM EST 01/15/2025 5:24 PM EST Satnam Beckford MD LAB POINT OF CARE T EST DOCKED DEVICE UNSOLICITED RESULTS Final Result Performing Organization Address City/State/[facility] de Phone Number [facility] [address] [place] [address] * (ABNORMAL) POCT glucose meter (01/15/2025 11:54 AM EST) Pathologist [facility] POCT Glucose 105(H) 74 - 99 mg/dL 01/15/2025 11:59 AM EST [facility] Comment:Accuracy of a glucos e result obtained from a capillary whole blood specimen relies upon adequate, non-compromised capillary blood flow. If the capillary glucose result is not consistent with the patient's clinical signs and symptoms, glucose testing should be repeated with either an arterial or venous sample on the glucometer or sent to the main labortory for testing. Comment 01/15/2025 11:59 AM EST [facility] Shearing Machine Operator ID Shonda Kimbrough Augie 11:59 AM EST [facility] Device ID [id number] 01/15/2025 11:59 AM EST [facility] Specimen Type POC Capillary 01/15/2025 11:59 AM EST [facility] Blood Capillary blood specimen / Unknown 01/15/2025 11:54 AM EST 01/15/2025 11:59 AM EST Satnam Beckford MD LAB POINT OF CARE T EST DOCKED DEVICE UNSOLICITED RESULTS Final Result Performing Organization Address City/[facility] Co de Phone Number [facility] [address] [place] [address] * (ABNORMAL) POCT glucose meter (01/15/2025 7:53 AM EST) [facility] POCT Glucose 159(H) 74 - 99 mg/dL 01/15/2025 7:55 AM EST [facility] Comment:Accuracy of a glucos e result obtained from a capillary whole blood specimen relies upon adequate, non-compromised capillary blood flow. If the capillary glucose result is not consistent with the patient's clinical signs and symptoms, glucose testing should be repeated with either an arterial or venous sample on the glucometer or sent to the main labortory for testing. Comment 01/15/2025 7:55 AM EST [facility] Shearing Machine Operator ID Shonda Kimbrough 7:55 AM EST [facility] Device ID [id number] 01/15/2025 7:55 AM EST [facility] Specimen Type POC Capillary 01/15/2025 7:55 AM EST [facility] Blood Capillary blood specimen / Unknown 01/15/2025 7:53 AM EST 01/15/2025 7:55 AM EST Satnam Beckford MD LAB POINT OF CARE T EST DOCKED DEVICE UNSOLICITED RESULTS Final Result [facility] [address] [place] [address] * Phosphorus (01/15/2025 5:00 AM EST) Pathologist [facility] Phosphorus, Plasma 3.5 2.5 - 4.5 mg/dL 01/15/2025 6:15 AM EST [facility] Blood Venous blood specimen / Unknown Venipuncture / Unknown 01/15/2025 5:00 AM EST 01/15/2025 5:24 AM EST us Maciel Olson MD LAB BLOOD ORDERABLES Final Resul t [facility] [address] [place] [address] * Magnesium (01/15/2025 5:00 AM EST) Magnesium, Plasma 2.1 1.9 - 2.4 mg/dL 01/15/2025 6:15 AM EST [facility] Blood Venous blood specimen / Unknown Venipuncture / Unknown 01/15/2025 5:00 AM EST 01/15/2025 5:24 AM EST us Maciel Olson MD LAB BLOOD ORDERABLES Final Resul t Performing Organization Address [facility] Co de Phone Number [facility] [address] [place] [address] * (ABNORMAL) Comprehensive metabolic panel (01/15/2025 5:00 AM EST) Glucose, Plasma 164(H) 74 - 99 mg/dL 01/15/2025 6:15 AM EST [facility] BUN, Plasma 39(H) 7 - 21 mg/dL 01/15/2025 6:15 AM EST [facility] Creatinine, Plasma 1.37(H) 0.70 - 1.20 mg/dL 01/15/2025 6:15 AM EST [facility] BUN/Creatinine Ratio 28 01/15/2025 6:15 AM EST [facility] Sodium, Plasma 140 136 - 145 mmol/L 01/15/2025 6:15 AM EST [facility] Potassium, Plasma 4.8 3.6 - 4.9 mmol/L 01/15/2025 6:15 AM EST [facility] Chloride, Plasma 108(H) 97 - 107 mmol/L 01/15/2025 6:15 AM EST [facility] CO2, Plasma 20(L) 22 - 29 mmol/L 01/15/2025 6:15 AM EST [facility] Anion Gap 12 6 - 16 mmol/L 01/15/2025 6:15 AM EST [facility] Total Calcium, Plasma 7.9(L) 8.9 - 10.2 mg/dL 01/15/2025 6:15 AM EST [facility] Total Protein 4.6(L) 6.3 - 7.9 g/dL 01/15/2025 6:15 AM EST [facility] Albumin, Plasma 2.5(L) 3.5 - 5.2 g/dL 01/15/2025 6:15 AM EST [facility] AST, Plasma 21 10 - 50 U/L 01/15/2025 6:15 AM EST [facility] ALT, Plasma 51(H) 10 - 50 U/L 01/15/2025 6:15 AM EST [facility] Alkaline Phosphatase, Plasma 95 40 - 115 U/L 01/15/2025 6:15 AM EST [facility] Total Bilirubin, Plasma 5.6(H) 0.2 - 1.1 mg/dL 01/15/2025 6:15 AM EST [facility] eGFRcr 64.4 mL/min/1.7 3m*2 01/15/2025 6:15 AM EST [facility] Comment:Reported eGFRcr in m L/min/1.73m2 is based the CKD-EPI 2020 equation that does not use a race coefficient. Blood Venous blood specimen / Unknown Venipuncture / Unknown 01/15/2025 5:00 AM EST 01/15/2025 5:24 AM EST us Maciel Olson MD LAB BLOOD ORDERABLES Final Resul t [facility] [address] [place] [address] * (ABNORMAL) CBC W/O Differential (01/15/2025 5:00 AM EST) WBC Count 9.22 3.70 - 10.30 10*3/uL LAB HEMATOLOGY METHOD 01/15/2025 5:24 AM EST [facility] RBC Count 2.63(L) 4.60 - 6.10 10*6/uL LAB HEMATOLOGY METHOD 01/15/2025 5:24 AM EST [facility] HGB 8.2(L) 13.7 - 17.5 g/dL LAB HEMATOLOGY METHOD 01/15/2025 5:24 AM EST [facility] HCT 26.4(L) 40.0 - 51.0 % LAB HEMATOLOGY METHOD 01/15/2025 5:24 AM EST [facility] Platelet Count 94(L) 155 - 369 10*3/uL LAB HEMATOLOGY METHOD 01/15/2025 5:24 AM EST [facility] MCV 100(H) 79 - 98 fL LAB HEMATOLOGY METHOD 01/15/2025 5:24 AM EST [facility] MCH 31.2 26.0 - 32.0 pg LAB HEMATOLOGY METHOD 01/15/2025 5:24 AM EST [facility] MCHC 31.1 30.7 - 35.5 g/dL LAB HEMATOLOGY METHOD 01/15/2025 5:24 AM EST [facility] RDW 24.6(H) 11.5 - 14.5 % LAB HEMATOLOGY METHOD 01/15/2025 5:24 AM EST [facility] MPV 11.2 8.8 - 12.5 fL LAB HEMATOLOGY METHOD 01/15/2025 5:24 AM EST [facility] nRBC 0.0 <=0.0 per 100 WBCs LAB HEMATOLOGY METHOD 01/15/2025 5:24 AM EST [facility] Blood Venous blood specimen / Unknown Venipuncture / Unknown 01/15/2025 5:00 AM EST 01/15/2025 5:16 AM EST Maciel Olson MD LAB BLOOD ORDERABLES Final Resul t [facility] [address] [place] [address] * (ABNORMAL) Prothrombin Time/INR (01/15/2025 5:00 AM EST) Prothrombin Time 15.1(H) 12.0 - 14.3 sec LAB COAGULATION METHOD 01/15/2025 5:49 AM EST [facility] INR 1.2(H) 0.9 - 1.1 LAB COAGULATION METHOD 01/15/2025 5:49 AM EST [facility] Blood Venous blood specimen / Unknown Venipuncture / Unknown 01/15/2025 5:00 AM EST 01/15/2025 5:16 AM EST Narrative [facility] - 01/15/2025 5:49 AM EST OPTIMAL INR RANGES FOR PATIENT ON ORAL ANTICOAGULANT THERAPY Prevention of venous thromboembolism INR 2.0 to 3.0 In patients with heart disease: Atrial fibrillation INR 2.0 to 3.0 Valvular heart disease INR 2.0 to 3.0 Tissue heart valves INR 2.0 to 3.0 Mechanical prosthetic valves INR 2.5 to 3.5 Prevention of recurrent OR INR 2.5 to 3.5 us Maciel Olson MD LAB BLOOD ORDERABLES Final Resul t [facility] [address] [place] [address] * Tacrolimus (01/15/2025 5:00 AM EST) Tacrolimus 7.5 4.0 - 17.0 ng/mL 01/15/2025 8:01 AM EST [facility] Comment: Tacrolimus therapeutic range: Initial (<3 mo.) Maintenance Kidney 8-13 ng/mL 4-8 ng/mL Liver 8-13 ng/mL 4-8 ng/mL Heart 8-15 ng/mL 7-13 ng/mL Lung;Heart/Lung 8-17 ng/mL 8-13 ng/mL Blood Venous blood specimen / Unknown Venipuncture / Unknown 01/15/2025 5:00 AM EST 01/15/2025 5:16 AM EST Narrative [facility] - 01/15/2025 8:01 AM EST Test performed by LC-MS/MS at the [facility]. This test was developed and its performance characteristics determined by [facility]. It has not been cleared or approved by the FDA. The laboratory is regulated under CLIA as qualified to perform high-complexity testing. This test is used for clinical purposes. Test performed by LC-MS/MS at the [facility]. This test was developed and its performance characteristics determined by [facility]. It has not been cleared or approved by the FDA. The laboratory is regulated under CLIA as qualified to perform high-complexity testing. This test is used for clinical purposes. us Maciel Olson MD LAB BLOOD ORDERABLES Final Resul t [facility] [address] [place] [address] * (ABNORMAL) POCT glucose meter (01/14/2025 8:25 PM EST) POCT Glucose 182(H) 74 - 99 mg/dL 01/14/2025 8:26 PM EST [facility] Comment:Accuracy of a glucos e result obtained from a capillary whole blood specimen relies upon adequate, non-compromised capillary blood flow. If the capillary glucose result is not consistent with the patient's clinical signs and symptoms, glucose testing should be repeated with either an arterial or venous sample on the glucometer or sent to the main labortory for testing. Comment 01/14/2025 8:26 PM EST [facility] Shearing Machine Operator ID Elver Medel 01/14/2025 8:26 PM EST [facility] Device ID [id number] 01/14/2025 8:26 PM EST [facility] Specimen Type POC Capillary 01/14/2025 8:26 PM EST [facility] Blood Capillary blood specimen / Unknown 01/14/2025 8:25 PM EST 01/14/2025 8:26 PM EST Satnam Beckford MD LAB POINT OF CARE T EST DOCKED DEVICE UNSOLICITED RESULTS Final Result Performing Organization Address City/[facility]/ZIP Co de Phone Number [facility] [address] [place] [address] * (ABNORMAL) POCT glucose meter (01/14/2025 5:01 PM EST) POCT Glucose 171(H) 74 - 99 mg/dL 01/14/2025 5:02 PM EST [facility] Comment:Accuracy of a glucos e result obtained from a capillary whole blood specimen relies upon adequate, non-compromised capillary blood flow. If the capillary glucose result is not consistent with the patient's clinical signs and symptoms, glucose testing should be repeated with either an arterial or venous sample on the glucometer or sent to the main labortory for testing. Comment 01/14/2025 5:02 PM EST [facility] Shearing Machine Operator ID Ritu Ma 5:02 PM EST [facility] Device ID [id number] 01/14/2025 5:02 PM EST [facility] Specimen Type POC Capillary 01/14/2025 5:02 PM EST [facility] Blood Capillary blood specimen / Unknown 01/14/2025 5:01 PM EST 01/14/2025 5:02 PM EST Satnam Beckford MD LAB POINT OF CARE T EST DOCKED DEVICE UNSOLICITED RESULTS Final Result Performing Organization Address City/[facility]/ZIP Co de Phone Number [facility] [address] [place] [address] * (ABNORMAL) POCT glucose meter (01/14/2025 11:29 AM EST) POCT Glucose 148(H) 74 - 99 mg/dL 01/14/2025 11:31 AM EST [facility] Comment:Accuracy of a glucos e result obtained from a capillary whole blood specimen relies upon adequate, non-compromised capillary blood flow. If the capillary glucose result is not consistent with the patient's clinical signs and symptoms, glucose testing should be repeated with either an arterial or venous sample on the glucometer or sent to the main labortory for testing. Comment 01/14/2025 11:31 AM EST [facility] Shearing Machine Operator ID Ritu Ma 11:31 AM EST [facility] Device ID [id number] 01/14/2025 11:31 AM EST [facility] Specimen Type POC Capillary 01/14/2025 11:31 AM EST [facility] Blood Capillary blood specimen / Unknown 01/14/2025 11:29 AM EST 01/14/2025 11:31 AM EST Satnam Beckford MD LAB POINT OF CARE T EST DOCKED DEVICE UNSOLICITED RESULTS Final Result Performing Organization Address City/[facility]/ZIP Co de Phone Number [facility] [address] [place] [address] * (ABNORMAL) POCT glucose meter (01/14/2025 7:59 AM EST) [facility] POCT Glucose 140(H) 74 - 99 mg/dL 01/14/2025 8:00 AM EST [facility] Comment:Accuracy of a glucos e result obtained from a capillary whole blood specimen relies upon adequate, non-compromised capillary blood flow. If the capillary glucose result is not consistent with the patient's clinical signs and symptoms, glucose testing should be repeated with either an arterial or venous sample on the glucometer or sent to the main labortory for testing. Comment 01/14/2025 8:00 AM EST [facility] Shearing Machine Operator ID Ritu Ma 8:00 AM EST [facility] Device ID [id number] 01/14/2025 8:00 AM EST [facility] Specimen Type POC Capillary 01/14/2025 8:00 AM EST [facility] Blood Capillary blood specimen / Unknown 01/14/2025 7:59 AM EST 01/14/2025 8:00 AM EST Satnam Beckford MD LAB POINT OF CARE T EST DOCKED DEVICE UNSOLICITED RESULTS Final Result [facility] [address] [place] [address] * Phosphorus (01/14/2025 4:56 AM EST) [facility] Phosphorus, Plasma 3.4 2.5 - 4.5 mg/dL 01/14/2025 5:39 AM EST [facility] Blood Venous blood specimen / Unknown Venipuncture / Unknown 01/14/2025 4:56 AM EST 01/14/2025 5:03 AM EST Maciel Olson MD LAB BLOOD ORDERABLES Final Resul t [facility] [address] [place] [address] * Magnesium (01/14/2025 4:56 AM EST) [facility] Magnesium, Plasma 2.1 1.9 - 2.4 mg/dL 01/14/2025 5:39 AM EST [facility] Blood Venous blood specimen / Unknown Venipuncture / Unknown 01/14/2025 4:56 AM EST 01/14/2025 5:03 AM EST us Maciel Olson MD LAB BLOOD ORDERABLES Final Resul t [facility] [address] [place] [address] * (ABNORMAL) Comprehensive metabolic panel (01/14/2025 4:56 AM EST) Glucose, Plasma 143(H) 74 - 99 mg/dL 01/14/2025 5:39 AM EST [facility] BUN, Plasma 29(H) 7 - 21 mg/dL 01/14/2025 5:39 AM EST [facility] Creatinine, Plasma 1.50(H) 0.70 - 1.20 mg/dL 01/14/2025 5:39 AM EST [facility] BUN/Creatinine Ratio 19 01/14/2025 5:39 AM EST [facility] Sodium, Plasma 137 136 - 145 mmol/L 01/14/2025 5:39 AM EST [facility] Potassium, Plasma 4.6 3.6 - 4.9 mmol/L 01/14/2025 5:39 AM EST [facility] Chloride, Plasma 107 97 - 107 mmol/L 01/14/2025 5:39 AM EST [facility] CO2, Plasma 20(L) 22 - 29 mmol/L 01/14/2025 5:39 AM EST [facility] Anion Gap 10 6 - 16 mmol/L 01/14/2025 5:39 AM EST [facility] Total Calcium, Plasma 7.6(L) 8.9 - 10.2 mg/dL 01/14/2025 5:39 AM EST [facility] Total Protein 4.7(L) 6.3 - 7.9 g/dL 01/14/2025 5:39 AM EST [facility] Albumin, Plasma 2.6(L) 3.5 - 5.2 g/dL 01/14/2025 5:39 AM EST [facility] AST, Plasma 24 10 - 50 U/L 01/14/2025 5:39 AM EST [facility] ALT, Plasma 54(H) 10 - 50 U/L 01/14/2025 5:39 AM EST [facility] Alkaline Phosphatase, Plasma 96 40 - 115 U/L 01/14/2025 5:39 AM EST [facility] Total Bilirubin, Plasma 8.9(H) 0.2 - 1.1 mg/dL 01/14/2025 5:39 AM EST [facility] eGFRcr 57.8 mL/min/1.7 3m*2 01/14/2025 5:39 AM EST [facility] Comment:Reported eGFRcr in m L/min/1.73m2 is based the CKD-EPI 2020 equation that does not use a race coefficient. Blood Venous blood specimen / Unknown Venipuncture / Unknown 01/14/2025 4:56 AM EST 01/14/2025 5:03 AM EST us Maciel Olson MD LAB BLOOD ORDERABLES Final Resul t [facility] [address] [place] [address] * (ABNORMAL) CBC W/O Differential (01/14/2025 4:56 AM EST) WBC Count 5.47 3.70 - 10.30 10*3/uL LAB HEMATOLOGY METHOD 01/14/2025 5:12 AM EST [facility] RBC Count 2.57(L) 4.60 - 6.10 10*6/uL LAB HEMATOLOGY METHOD 01/14/2025 5:12 AM EST [facility] HGB 8.4(L) 13.7 - 17.5 g/dL LAB HEMATOLOGY METHOD 01/14/2025 5:12 AM EST [facility] HCT 25.4(L) 40.0 - 51.0 % LAB HEMATOLOGY METHOD 01/14/2025 5:12 AM EST [facility] Platelet Count 76(L) 155 - 369 10*3/uL LAB HEMATOLOGY METHOD 01/14/2025 5:12 AM EST [facility] MCV 99(H) 79 - 98 fL LAB HEMATOLOGY METHOD 01/14/2025 5:12 AM EST [facility] MCH 32.7(H) 26.0 - 32.0 pg LAB HEMATOLOGY METHOD 01/14/2025 5:12 AM EST [facility] MCHC 33.1 30.7 - 35.5 g/dL LAB HEMATOLOGY METHOD 01/14/2025 5:12 AM EST [facility] RDW 23.9(H) 11.5 - 14.5 % LAB HEMATOLOGY METHOD 01/14/2025 5:12 AM EST [facility] MPV 11.3 8.8 - 12.5 fL LAB HEMATOLOGY METHOD 01/14/2025 5:12 AM EST [facility] nRBC 0.0 <=0.0 per 100 WBCs LAB HEMATOLOGY METHOD 01/14/2025 5:12 AM EST [facility] Blood Venous blood specimen / Unknown Venipuncture / Unknown 01/14/2025 4:56 AM EST 01/14/2025 5:02 AM EST us Maciel Olson MD LAB BLOOD ORDERABLES Final Resul t Performing Organization Address City/State/[facility] Co de Phone Number [facility] [address] [place] [address] * (ABNORMAL) Prothrombin Time/INR (01/14/2025 4:56 AM EST) Prothrombin Time 15.0(H) 12.0 - 14.3 sec LAB COAGULATION METHOD 01/14/2025 5:24 AM EST [facility] INR 1.2(H) 0.9 - 1.1 LAB COAGULATION METHOD 01/14/2025 5:24 AM EST [facility] Blood Venous blood specimen / Unknown Venipuncture / Unknown 01/14/2025 4:56 AM EST 01/14/2025 5:02 AM EST Narrative [facility] - 01/14/2025 5:24 AM EST OPTIMAL INR RANGES FOR PATIENT ON ORAL ANTICOAGULANT THERAPY Prevention of venous thromboembolism INR 2.0 to 3.0 In patients with heart disease: Atrial fibrillation INR 2.0 to 3.0 Valvular heart disease INR 2.0 to 3.0 Tissue heart valves INR 2.0 to 3.0 Mechanical prosthetic valves INR 2.5 to 3.5 Prevention of recurrent OR INR 2.5 to 3.5 Maciel Olson MD LAB BLOOD ORDERABLES Final Resul t Performing Organization Address [facility] de Phone Number [facility] [address] [place] [address] * Tacrolimus (01/14/2025 4:56 AM EST) Tacrolimus 8.1 4.0 - 17.0 ng/mL 01/14/2025 8:11 AM EST [facility] Blood Venous blood specimen / Unknown Venipuncture / Unknown 01/14/2025 4:56 AM EST 01/14/2025 5:02 AM EST Narrative [facility] - 01/14/2025 8:11 AM EST Test performed by LC-MS/MS at the [facility]. This test was developed and its performance characteristics determined by [facility]. It has not been cleared or approved by the FDA. The laboratory is regulated under CLIA as qualified to perform high-complexity testing. This test is used for clinical purposes. Test performed by LC-MS/MS at the [facility]. This test was developed and its performance characteristics determined by [facility]. It has not been cleared or approved by the FDA. The laboratory is regulated under CLIA as qualified to perform high-complexity testing. This test is used for clinical purposes. Maciel Oslon MD LAB BLOOD ORDERABLES Final Resul t Performing Organization Address [facility] Co de Phone Number [facility] [address] [place] [address] * (ABNORMAL) POCT glucose meter (01/13/2025 7:34 PM EST) POCT Glucose 199(H) 74 - 99 mg/dL 01/13/2025 7:36 PM EST [facility] Comment:Accuracy of a glucos e result obtained from a capillary whole blood specimen relies upon adequate, non-compromised capillary blood flow. If the capillary glucose result is not consistent with the patient's clinical signs and symptoms, glucose testing should be repeated with either an arterial or venous sample on the glucometer or sent to the main labortory for testing. Comment 01/13/2025 7:36 PM EST [facility] Shearing Machine Operator ID Katarina Nowak 01/14/20 7:36 PM EST [facility] Device ID [id number] 01/13/2025 7:36 PM EST [facility] Specimen Type POC Capillary 01/13/2025 7:36 PM EST [facility] Blood Capillary blood specimen / Unknown 01/13/2025 7:34 PM EST 01/13/2025 7:36 PM EST Satnam Beckford MD LAB POINT OF CARE T EST DOCKED DEVICE UNSOLICITED RESULTS Final Result Performing Organization Address City/[facility]/ZIP Co de Phone Number [facility] [address] [place] [address] * (ABNORMAL) POCT glucose meter (01/13/2025 6:12 PM EST) POCT Glucose 133(H) 74 - 99 mg/dL 01/13/2025 6:14 PM EST [facility] Comment:Accuracy of a glucos e result obtained from a capillary whole blood specimen relies upon adequate, non-compromised capillary blood flow. If the capillary glucose result is not consistent with the patient's clinical signs and symptoms, glucose testing should be repeated with either an arterial or venous sample on the glucometer or sent to the main labortory for testing. Comment 01/13/2025 6:14 PM EST [facility] Shearing Machine Operator ID Tila Garcia 6:14 PM EST [facility] Device ID [id number] 01/13/2025 6:14 PM EST [facility] Specimen Type POC Capillary 01/13/2025 6:14 PM EST [facility] Blood Capillary blood specimen / Unknown 01/13/2025 6:12 PM EST 01/13/2025 6:14 PM EST Satnam Beckford MD LAB POINT OF CARE T EST DOCKED DEVICE UNSOLICITED RESULTS Final Result Performing Organization Address City/[facility]/ZIP Co de Phone Number [facility] [address] [place] [address] * US Guided Needle Biopsy Liver (01/13/2025 4:26 PM EST) Anatomical Region Laterality Modality Liver Ultrasound Impressions 01/15/2025 7:12 AM EST Successful ultrasound-guided random liver biopsy. 2 hours bedrest, recovery per protocol. CRITICAL RESULT: No. COMMUNICATION: Per this written report. Preliminary report signed by LIVE Ramos on 01/15/2025 7:01 AM By electronically signing this report, I, the attending physician, attest that I was not present for the procedure(s) but agree with the final edited report. Drafted by LIVE Ramos on 01/15/2025 6:57 AM Final report signed by Riley Wallis MD on 01/15/2025 7:12 AM Narrative 01/15/2025 7:12 AM EST CLINICAL INDICATION: 45 year old male s/p liver transplant with elevated LFTs and hyperbilirubinemia. TECHNIQUE: Director Retail Brand Development: Ghislaine Borges APRN Secondary Shearing Machine Operator: None. Medications: IV conscious sedation with continuous physiologic monitoring provided by a qualified healthcare professional using Versed 1 mg IV and Fentanyl 50mcg IV. 1% Lidocaine SQ. Antibiotics: N/A Duration of Conscious Sedation: Time out: 5832 Procedure: After discussion of risks and benefits, informed written consent was obtained. Appropriate time out was performed to confirm patient identity and planned procedure and side. Strict hand hygiene protocol was observed. All personnel in the room were attired in surgical hat and mask. The operators were in surgical hat, mask, sterile gloves, and sterile gowns. The site was prepped with 2% chlorhexidine for cutaneous antisepsis followed by sterile barrier draping. The patient was placed supine on the procedure table and initial scanning carried out. The skin overlying the planned tract was prepped and draped, and local anesthetic administered. The liver accessed under ultrasound guidance with a 17- gauge coaxial needle and position confirmed. Ultrasound images were sent to permanent storage in PACS. Via the coaxial needle, several cores were taken with an 18-gauge biopsy device. Once sampling was felt sufficient the needle was removed, utilizing gel foam for needle track embolization. Post biopsy scanning revealed no evidence of bleeding. A sterile dressing was applied to the puncture site. The patient tolerated the procedure well, and was transferred to the recovery in good condition. Specimens were sent to the pathology lab. COMPARISON: None. FINDINGS: No focal liver lesions, no overt biliary dilatation. COMPLICATION: No. Procedure Note Riley Levy MD - 01/15/2025 CLINICAL INDICATION: 45 year old male s/p liver transplant with elevated LFTs andhyperbilirubinemia. TECHNIQUE: Director Retail Brand Development: Ghislaine Borges APRN Secondary Shearing Machine Operator: None. Medications: IV conscious sedation with continuous physiologic monitoringprovided by a qualified healthcare professional using Versed 1 mg IV andFentanyl 50mcg IV. 1% Lidocaine SQ. Antibiotics: N/A Duration of Conscious Sedation: Time out: 2013 Procedure: After discussion of risks and benefits, informed written consent wasobtained. Appropriate time out was performed to confirm patient identityand planned procedure and side. Strict hand hygiene protocol was observed. All personnel in the room wereattired in surgical hat and mask. The operators were in surgical hat,mask, sterile gloves, and sterile gowns. The site was prepped with 2%chlorhexidine for cutaneous antisepsis followed by sterile barrierdraping. The patient was placed supine on the procedure table and initial scanningcarried out. The skin overlying the planned tract was prepped and draped,and local anesthetic administered. The liver accessed under ultrasoundguidance with a 17-gauge coaxial needle and position confirmed. Ultrasoundimages were sent to permanent storage in PACS. Via the coaxial needle,several cores were taken with an 18-gauge biopsy device. Once sampling wasfelt sufficient the needle was removed, utilizing gel foam for needletrack embolization. Post biopsy scanning revealed no evidence of bleeding.A sterile dressing was applied to the puncture site. The patienttolerated the procedure well, and was transferred to the recovery in goodcondition. Specimens were sent to the pathology lab. COMPARISON: None. FINDINGS: No focal liver lesions, no overt biliary dilatation. COMPLICATION: No. IMPRESSION: Successful ultrasound-guided random liver biopsy. 2 hours bedrest, recovery per protocol. CRITICAL RESULT: No. COMMUNICATION: Per this written report. Preliminary report signed by LIVE Ramos on 01/15/2025 7:01 AM By electronically signing this report, I, the attending physician, attestthat I was not present for the procedure(s) but agree with the finaledited report. Drafted by LIVE Ramos on 01/15/2025 6:57 AM Final report signed by Riley Wallis MD on 01/15/2025 7:12 AM Vanda Maguire SEO ASSISTANT, DNP IMG US PROCEDURES Tami l Result * Surgical Pathology Exam (01/13/2025 4:16 PM EST) Case Report Surgical Pathology Case: [id number] Authorizing Provider: Satnam Beckford MD Collected: 01/13/2025 1616 Ordering Location: [facility] Inpatient Received: 01/13/2025 2328 Pathologist: Danny Pichardo MD Specimen: Liver 5:27 PM EST [facility] Final Diagnosis A. LIVER, ALLOGRAFT, CORE NEEDLE BIOPSY: - ACUTE CHOLANGITIS WITH ASSOCIATED CHOLESTASIS. - ACUTE CELLULAR REJECTION WITH TREATMENT EFFECT. - SEE COMMENT AND MICROSCOPIC DESCRIPTION. 5:27 PM EST [facility] at 1727 EST Comment Preliminary results were communicated to Dr. Beckford, via e-mail by Dr. Pichardo on 01/14/2025. 5:27 PM [facility] Clinical Information s/p OLT 01/03 with uptrending total bilirubin with no obstructive process 5:27 PM EST [facility] LAB Microscopic Description The histologic sections reveal a liver parenchyma with preserved lobular architecture. The majority of portal areas are involved by a moderate, mixed inflammatory infiltrate comprised of lymphocytes with polymorphonuclear neutrophils, and scattered eosinophils. The polymorphonuclear neutrophils infiltrative the bile ducts consistent with acute ductitis. Occasionally, portal venous endotheliitis is also identified. Moderate cholestasis in the zone 3 lobular areas is also seen. No significant lobular inflammation is identified. No viral cytopathic effect is seen and the cytomegalovirus immunostain is negative. No bile duct loss is identified by cytokeratin 7 immunostain. The trichrome stain highlights no significant portal, periportal or centrilobular fibrosis. In summary the findings in the current biopsy are consistent with acute cholangitis with associated cholestasis and acute cellular rejection with treatment effect, in this patient with 500 mg IV Solu-Medrol bolus, the day prior the biopsy. The differential diagnosis of acute cholangitis includes biliary obstruction, infection, and drug reaction (particularly antibiotics), or a combination of the above. Clinical correlation is recommended. Accurate grading of acute cellular rejection with treatment effect it is very difficult, however is considered to be at least moderate. Further clinical correlation is recommended. The case was reviewed in consultation with Dr. De with a agreement with the above diagnosis. 5:27 PM [facility] Special and Immunohistochemical Stains Special Stain: A1-4 Michael Trichrome Stain: performed and interpreted. IHC: A1-5 CMV: negative staining. A1-6 CK7: performed and interpreted. A2-2 CMV: negative staining. A2-3 CK7: performed and interpreted. All controls show appropriate reactivity. All immunohistochemist ry, in situ hybridization, and histochemical tests were developed by and are performed at the [facility], [address] [place] [address]. All tests reported here, except those addressing HER2 (breast) and PD-L1 expression as predictive markers, have not been cleared by or approved by the US Food and Drug Administration (FDA). The FDA has determined that such clearance or approval is not necessary. The laboratory is regulated under CLIA as qualified to perform high-complexity testing. The tests are used for clinical purposes. They should not be regarded as investigational or for research. This assay has not been validated on decalcified tissues. Results should be interpreted with caution given the likelihood of false negativity on decalcified specimens. 5 5:27 PM [facility] Gross Description A. LIVER Received in formalin labeled l iver , are 3 yellow-green soft tissue cores that range from 1.4-1.6 cm in length and up to 0.1 cm in diameter. Entirely submitted in cassettes A1 to A2. Cold Time: 0 Adilene Levine 5 5:27 PM [facility] Note: A resident was involved in the service. I attest I examined the relevant preparations for the specimens and confirmed the diagnosis or interpretation. 5 5:27 PM [facility] Tissue Liver structure / Unknown Non-blood Collection / Unknown 01/13/2025 4:16 PM EST 01/13/2025 4:59 PM EST Comment:TAVERA path please Satnam Beckford MD LAB PATHOLOGY ORDERABLES Fi nal Result [facility] [address] [place] [address] * (ABNORMAL) POCT glucose meter (01/13/2025 11:10 AM EST) POCT Glucose 116(H) 74 - 99 mg/dL 01/13/2025 11:12 AM EST [facility] Comment:Accuracy of a glucos e result obtained from a capillary whole blood specimen relies upon adequate, non-compromised capillary blood flow. If the capillary glucose result is not consistent with the patient's clinical signs and symptoms, glucose testing should be repeated with either an arterial or venous sample on the glucometer or sent to the main labortory for testing. Comment 01/13/2025 11:12 AM EST [facility] Shearing Machine Operator ID Tila Garcia 11:12 AM EST [facility] LAB Device ID [id number] 01/13/2025 11:12 AM EST [facility] Specimen Type POC Capillary 01/13/2025 11:12 AM EST [facility] Blood Capillary blood specimen / Unknown 01/13/2025 11:10 AM EST 01/13/2025 11:12 AM EST Satnam Beckford MD LAB POINT OF CARE T EST DOCKED DEVICE UNSOLICITED RESULTS Final Result Performing Organization Address City/[facility]/ZIP Co de Phone Number [facility] [address] [place] [address] * Herpes Simplex Virus by PCR (Serum) (01/13/2025 10:59 AM EST) Herpes Simplex Virus 1 (HSV-1) PCR Result Not Detected Not Detected 01/14/2025 2:21 PM EST [facility] Herpes Simplex Virus 2 (HSV-2) PCR Result Not Detected Not Detected 01/14/2025 2:21 PM EST [facility] Serum Venous blood specimen / Unknown 01/13/2025 10:59 AM EST 01/13/2025 1:47 PM EST Narrative [facility] - 01/14/2025 2:21 PM EST This PCR assay was developed and its performance characteristics determined by [facility] as appropriate for clinical purposes. This assay has not been cleared or approved by the FDA, but is performed in a CLIA regulated laboratory that is qualified to perform high-complexity testing. Satnam Beckford MD LAB MICROBIOLOGY - GENERAL ORDERABLES Final Result [facility] [address] [place] [address] * Shailesh Suárez Virus (EBV) Quantitative PCR (01/13/2025 10:59 AM EST) Shailesh Suárez Virus, Blood, Quant DNA Interpretation Not Detected Not Detected 01/14/2025 8:41 AM EST [facility] Blood Venous blood specimen / Unknown Venipuncture / Unknown 01/13/2025 10:59 AM EST 01/13/2025 11:13 AM EST Narrative [facility] - 01/14/2025 8:41 AM EST EBV Linear Range: 2.7 to 6.7 log10 IU/mL (500 to 5 x 10e6 IU/mL) The limit of Detection (LOD) of this qPCR assay is 313 IU/mL [2.5 log10 IU/mL] and the Limit of Quantitation (LOQ) is 500 IU/mL [2.7 log10 IU/mL]. Results should be used in conjunction with clinical findings and should not be used as the sole basis for a diagnosis or treatment decision. This PCR assay was developed and it's performance characteristics determined by [facility] as appropriate for clinical purposes. This assay has not been cleared or approved by the FDA, but is performed in a CLIA regulated laboratory that is qualified to perform high-complexity testing. EBV Linear Range: 2.7 to 6.7 log10 IU/mL (500 to 5 x 10e6 IU/mL) The limit of Detection (LOD) of this qPCR assay is 313 IU/mL [2.5 log10 IU/mL] and the Limit of Quantitation (LOQ) is 500 IU/mL [2.7 log10 IU/mL]. Results should be used in conjunction with clinical findings and should not be used as the sole basis for a diagnosis or treatment decision. This PCR assay was developed and it's performance characteristics determined by [facility] as appropriate for clinical purposes. This assay has not been cleared or approved by the FDA, but is performed in a CLIA regulated laboratory that is qualified to perform high-complexity testing. Satnam Beckford MD LAB BLOOD ORDERABLES Final Result Performing Organization Address [facility]/ZIP Co de Phone Number [facility] [address] [place] [address] * Cytomegalovirus (CMV) Quantitative PCR (01/13/2025 10:59 AM EST) [facility] Cytomegalovirus (CMV) Quantitative Interpretation Not Detected Not Detected 01/14/2025 2:52 PM EST [facility] Blood Venous blood specimen / Unknown Venipuncture / Unknown 01/13/2025 10:59 AM EST 01/13/2025 11:13 AM EST [facility] - 01/14/2025 2:52 PM EST The [employer] M2000 CMV test is a Real Time in vitro nucleic acid amplification test for the quantitation of Cytomegalovirus (CMV) DNA in human plasma in CMV infected individuals. It is intended to quantify CMV in patients who are infected with this virus. The dynamic range for this test is log10 = 1.70 to 8.19 and/or 50 to 156,000,000 IU/mL. The limit of detection (LOD) for this assay is 31.20 IU/mL and the limit of quantitation (LOQ) is 50 IU/mL. This assay is FDA approved for clinical use. Satnam Beckford MD LAB BLOOD ORDERABLES Final Result Performing Organization Address [facility] Co de Phone Number [facility] [address] [place] [address] * POCT glucose meter (01/13/2025 8:20 AM EST) [facility] POCT Glucose 97 74 - 99 mg/dL 01/13/2025 8:21 AM EST [facility] Comment:Accuracy of a glucos e result obtained from a capillary whole blood specimen relies upon adequate, non-compromised capillary blood flow. If the capillary glucose result is not consistent with the patient's clinical signs and symptoms, glucose testing should be repeated with either an arterial or venous sample on the glucometer or sent to the main labortory for testing. Comment 01/13/2025 8:21 AM EST [facility] Shearing Machine Operator ID Tila Garcia 8:21 AM EST [facility] LAB Device ID [id number] 01/13/2025 8:21 AM EST [facility] Specimen Type POC Capillary 01/13/2025 8:21 AM EST [facility] Blood Capillary blood specimen / Unknown 01/13/2025 8:20 AM EST 01/13/2025 8:21 AM EST us Satnam Beckford MD LAB POINT OF CARE T EST DOCKED DEVICE UNSOLICITED RESULTS Final Result Performing Organization Address City/[facility]/ZIP Co de Phone Number [facility] [address] [place] [address] * (ABNORMAL) POCT glucose meter (01/13/2025 6:36 AM EST) [facility] POCT Glucose 116(H) 74 - 99 mg/dL 01/13/2025 6:38 AM EST [facility] Comment:Accuracy of a glucos e result obtained from a capillary whole blood specimen relies upon adequate, non-compromised capillary blood flow. If the capillary glucose result is not consistent with the patient's clinical signs and symptoms, glucose testing should be repeated with either an arterial or venous sample on the glucometer or sent to the main labortory for testing. Comment 01/13/2025 6:38 AM EST [facility] Shearing Machine Operator ID Andreina Hester 01/13/2025 6:38 AM EST [facility] Device ID [id number] 01/13/2025 6:38 AM EST [facility] Specimen Type POC Capillary 01/13/2025 6:38 AM EST [facility] Blood Capillary blood specimen / Unknown 01/13/2025 6:36 AM EST 01/13/2025 6:38 AM EST us Satnam Beckford MD LAB POINT OF CARE T EST DOCKED DEVICE UNSOLICITED RESULTS Final Result [facility] [address] [place] [address] * POCT glucose meter (01/13/2025 5:52 AM EST) POCT Glucose 88 74 - 99 mg/dL 01/13/2025 5:54 AM EST [facility] Comment:Accuracy of a glucos e result obtained from a capillary whole blood specimen relies upon adequate, non-compromised capillary blood flow. If the capillary glucose result is not consistent with the patient's clinical signs and symptoms, glucose testing should be repeated with either an arterial or venous sample on the glucometer or sent to the main labortory for testing. Comment 01/13/2025 5:54 AM EST [facility] Shearing Machine Operator ID Andreina Hester 01/13/2025 5:54 AM EST [facility] LAB Device ID [id number] 01/13/2025 5:54 AM EST [facility] Specimen Type POC Capillary 01/13/2025 5:54 AM EST [facility] Blood Capillary blood specimen / Unknown 01/13/2025 5:52 AM EST 01/13/2025 5:54 AM EST us Satnam Beckford MD LAB POINT OF CARE T EST DOCKED DEVICE UNSOLICITED RESULTS Final Result Performing Organization Address City/[facility] Co de Phone Number [facility] [address] [place] [address] * (ABNORMAL) Bilirubin, direct (01/13/2025 4:43 AM EST) Direct Bilirubin, Plasma 8.3(H) <=0.3 mg/dL 01/13/2025 11:13 AM EST [facility] Blood Venous blood specimen / Unknown Venipuncture / Unknown 01/13/2025 4:43 AM EST 01/13/2025 4:51 AM EST us Félix Simmons SEO ASSISTANT, DNP LAB BLOOD ORDERA BLES Final Result Performing Organization Address City/[facility]/ZIP Co de Phone Number [facility] [address] [place] [address] * Phosphorus (01/13/2025 4:43 AM EST) Phosphorus, Plasma 3.3 2.5 - 4.5 mg/dL 01/13/2025 5:21 AM EST [facility] Blood Venous blood specimen / Unknown Venipuncture / Unknown 01/13/2025 4:43 AM EST 01/13/2025 4:51 AM EST us Maciel Olson MD LAB BLOOD ORDERABLES Final Resul t Performing Organization Address City/[facility]/ZIP Co de Phone Number [facility] [address] [place] [address] * Magnesium (01/13/2025 4:43 AM EST) Magnesium, Plasma 2.1 1.9 - 2.4 mg/dL 01/13/2025 5:21 AM EST [facility] Blood Venous blood specimen / Unknown Venipuncture / Unknown 01/13/2025 4:43 AM EST 01/13/2025 4:51 AM EST us Maciel Olson MD LAB BLOOD ORDERABLES Final Resul t Performing Organization Address City/[facility] Co de Phone Number [facility] [address] [place] [address] * (ABNORMAL) Comprehensive metabolic panel (01/13/2025 4:43 AM EST) Glucose, Plasma 88 74 - 99 mg/dL 01/13/2025 5:21 AM EST [facility] BUN, Plasma 26(H) 7 - 21 mg/dL 01/13/2025 5:21 AM EST [facility] Creatinine, Plasma 1.73(H) 0.70 - 1.20 mg/dL 01/13/2025 5:21 AM EST [facility] BUN/Creatinine Ratio 15 01/13/2025 5:21 AM EST [facility] Sodium, Plasma 138 136 - 145 mmol/L 01/13/2025 5:21 AM EST [facility] Potassium, Plasma 3.9 3.6 - 4.9 mmol/L 01/13/2025 5:21 AM EST [facility] Chloride, Plasma 105 97 - 107 mmol/L 01/13/2025 5:21 AM EST [facility] CO2, Plasma 21(L) 22 - 29 mmol/L 01/13/2025 5:21 AM EST [facility] Anion Gap 12 6 - 16 mmol/L 01/13/2025 5:21 AM EST [facility] Total Calcium, Plasma 7.7(L) 8.9 - 10.2 mg/dL 01/13/2025 5:21 AM EST [facility] Total Protein 4.5(L) 6.3 - 7.9 g/dL 01/13/2025 5:21 AM EST [facility] Albumin, Plasma 2.4(L) 3.5 - 5.2 g/dL 01/13/2025 5:21 AM EST [facility] AST, Plasma 28 10 - 50 U/L 01/13/2025 5:21 AM EST [facility] ALT, Plasma 60(H) 10 - 50 U/L 01/13/2025 5:21 AM EST [facility] Alkaline Phosphatase, Plasma 103 40 - 115 U/L 01/13/2025 5:21 AM EST [facility] Total Bilirubin, Plasma 11.0(H) 0.2 - 1.1 mg/dL 01/13/2025 5:21 AM EST [facility] eGFRcr 48.7 mL/min/1.7 3m*2 01/13/2025 5:21 AM EST [facility] Comment:Reported eGFRcr in m L/min/1.73m2 is based the CKD-EPI 2020 equation that does not use a race coefficient. Blood Venous blood specimen / Unknown Venipuncture / Unknown 01/13/2025 4:43 AM EST 01/13/2025 4:51 AM EST us Maciel Olson MD LAB BLOOD ORDERABLES Final Resul t [facility] [address] [place] [address] * (ABNORMAL) CBC W/O Differential (01/13/2025 4:43 AM EST) WBC Count 5.82 3.70 - 10.30 10*3/uL LAB HEMATOLOGY METHOD 01/13/2025 4:59 AM EST [facility] RBC Count 2.61(L) 4.60 - 6.10 10*6/uL LAB HEMATOLOGY METHOD 01/13/2025 4:59 AM EST [facility] HGB 8.5(L) 13.7 - 17.5 g/dL LAB HEMATOLOGY METHOD 01/13/2025 4:59 AM EST [facility] HCT 25.6(L) 40.0 - 51.0 % LAB HEMATOLOGY METHOD 01/13/2025 4:59 AM EST [facility] Platelet Count 54(L) 155 - 369 10*3/uL LAB HEMATOLOGY METHOD 01/13/2025 4:59 AM EST [facility] MCV 98 79 - 98 fL LAB HEMATOLOGY METHOD 01/13/2025 4:59 AM EST [facility] MCH 32.6(H) 26.0 - 32.0 pg LAB HEMATOLOGY METHOD 01/13/2025 4:59 AM EST [facility] MCHC 33.2 30.7 - 35.5 g/dL LAB HEMATOLOGY METHOD 01/13/2025 4:59 AM EST [facility] RDW 23.8(H) 11.5 - 14.5 % LAB HEMATOLOGY METHOD 01/13/2025 4:59 AM EST [facility] MPV 11.0 8.8 - 12.5 fL LAB HEMATOLOGY METHOD 01/13/2025 4:59 AM EST [facility] nRBC 0.0 <=0.0 per 100 WBCs LAB HEMATOLOGY METHOD 01/13/2025 4:59 AM EST [facility] Blood Venous blood specimen / Unknown Venipuncture / Unknown 01/13/2025 4:43 AM EST 01/13/2025 4:49 AM EST us Maciel Olson MD LAB BLOOD ORDERABLES Final Resul t [facility] [address] [place] [address] * (ABNORMAL) Prothrombin Time/INR (01/13/2025 4:43 AM EST) Prothrombin Time 14.6(H) 12.0 - 14.3 sec LAB COAGULATION METHOD 01/13/2025 5:18 AM EST [facility] INR 1.1 0.9 - 1.1 LAB COAGULATION METHOD 01/13/2025 5:18 AM EST [facility] Blood Venous blood specimen / Unknown Venipuncture / Unknown 01/13/2025 4:43 AM EST 01/13/2025 4:51 AM EST Narrative [facility] - 01/13/2025 5:18 AM EST OPTIMAL INR RANGES FOR PATIENT ON ORAL ANTICOAGULANT THERAPY Prevention of venous thromboembolism INR 2.0 to 3.0 In patients with heart disease: Atrial fibrillation INR 2.0 to 3.0 Valvular heart disease INR 2.0 to 3.0 Tissue heart valves INR 2.0 to 3.0 Mechanical prosthetic valves INR 2.5 to 3.5 Prevention of recurrent OR INR 2.5 to 3.5 us Maciel Olson MD LAB BLOOD ORDERABLES Final Resul t Performing Organization Address City/State/[facility] Co de Phone Number [facility] [address] [place] [address] * Tacrolimus (01/13/2025 4:43 AM EST) Tacrolimus 8.2 4.0 - 17.0 ng/mL 01/13/2025 8:17 AM EST [facility] Blood Venous blood specimen / Unknown Venipuncture / Unknown 01/13/2025 4:43 AM EST 01/13/2025 4:49 AM EST Narrative [facility] - 01/13/2025 8:17 AM EST Test performed by LC-MS/MS at the [facility]. This test was developed and its performance characteristics determined by [facility]. It has not been cleared or approved by the FDA. The laboratory is regulated under CLIA as qualified to perform high-complexity testing. This test is used for clinical purposes. Test performed by LC-MS/MS at the [facility]. This test was developed and its performance characteristics determined by [facility]. It has not been cleared or approved by the FDA. The laboratory is regulated under CLIA as qualified to perform high-complexity testing. This test is used for clinical purposes. us Maciel Olson MD LAB BLOOD ORDERABLES Final Resul t Performing Organization Address City/[facility]/ZIP Co de Phone Number [facility] [address] [place] [address] * POCT glucose meter (2025 7:24 PM EST) POCT Glucose 98 74 - 99 mg/dL 2025 7:26 PM EST [facility] Comment:Accuracy of a glucos e result obtained from a capillary whole blood specimen relies upon adequate, non-compromised capillary blood flow. If the capillary glucose result is not consistent with the patient's clinical signs and symptoms, glucose testing should be repeated with either an arterial or venous sample on the glucometer or sent to the main labortory for testing. Comment 2025 7:26 PM EST [facility] Shearing Machine Operator ID Katarina Nowak 01/13/20 7:26 PM EST [facility] Device ID [id number] 2025 7:26 PM EST [facility] Specimen Type POC Capillary 2025 7:26 PM EST [facility] Blood Capillary blood specimen / Unknown 2025 7:24 PM EST 2025 7:26 PM EST Satnam Beckford MD LAB POINT OF CARE T EST DOCKED DEVICE UNSOLICITED RESULTS Final Result Performing Organization Address City/[facility] Co de Phone Number [facility] [address] [place] [address] * (ABNORMAL) POCT glucose meter (2025 5:10 PM EST) POCT Glucose 134(H) 74 - 99 mg/dL 2025 5:12 PM EST [facility] Comment:Accuracy of a glucos e result obtained from a capillary whole blood specimen relies upon adequate, non-compromised capillary blood flow. If the capillary glucose result is not consistent with the patient's clinical signs and symptoms, glucose testing should be repeated with either an arterial or venous sample on the glucometer or sent to the main labortory for testing. Comment 2025 5:12 PM EST [facility] Shearing Machine Operator ID Ritu Ma 5:12 PM EST [facility] Device ID [id number] 2025 5:12 PM EST [facility] Specimen Type POC Capillary 2025 5:12 PM EST [facility] Blood Capillary blood specimen / Unknown 2025 5:10 PM EST 2025 5:12 PM EST Satnam Beckford MD LAB POINT OF CARE T EST DOCKED DEVICE UNSOLICITED RESULTS Final Result Performing Organization Address City/[facility] Co de Phone Number [facility] [address] [place] [address] * (ABNORMAL) POCT glucose meter (2025 2:13 PM EST) POCT Glucose 110(H) 74 - 99 mg/dL 2025 2:15 PM EST [facility] Comment:Accuracy of a glucos e result obtained from a capillary whole blood specimen relies upon adequate, non-compromised capillary blood flow. If the capillary glucose result is not consistent with the patient's clinical signs and symptoms, glucose testing should be repeated with either an arterial or venous sample on the glucometer or sent to the main labortory for testing. Comment 2025 2:15 PM EST [facility] Shearing Machine Operator ID Dominic Canchola 2025 2:15 PM EST [facility] Device ID [id number] 2025 2:15 PM EST [facility] Specimen Type POC Capillary 2025 2:15 PM EST [facility] Blood Capillary blood specimen / Unknown 2025 2:13 PM EST 2025 2:15 PM EST Satnam Beckford MD LAB POINT OF CARE T EST DOCKED DEVICE UNSOLICITED RESULTS Final Result Performing Organization Address City/[facility]/ZIP Co de Phone Number [facility] [address] [place] [address] * (ABNORMAL) POCT glucose meter (2025 1:32 PM EST) POCT Glucose 137(H) 74 - 99 mg/dL 2025 2:08 PM EST [facility] Comment:Accuracy of a glucos e result obtained from a capillary whole blood specimen relies upon adequate, non-compromised capillary blood flow. If the capillary glucose result is not consistent with the patient's clinical signs and symptoms, glucose testing should be repeated with either an arterial or venous sample on the glucometer or sent to the main labortory for testing. Comment 2025 2:08 PM EST [facility] Shearing Machine Operator ID [email or web address] 025 2:08 PM EST [facility] Device ID [id number] 2025 2:08 PM EST [facility] Specimen Type POC Capillary 2025 2:08 PM EST [facility] Blood Capillary blood specimen / Unknown 2025 1:32 PM EST 2025 2:08 PM EST Satnam Beckford MD LAB POINT OF CARE T EST DOCKED DEVICE UNSOLICITED RESULTS Final Result [facility] [address] [place] [address] * POCT glucose meter (2025 1:08 PM EST) [facility] POCT Glucose 88 74 - 99 mg/dL 2025 1:10 PM EST [facility] Comment:Accuracy of a glucos e result obtained from a capillary whole blood specimen relies upon adequate, non-compromised capillary blood flow. If the capillary glucose result is not consistent with the patient's clinical signs and symptoms, glucose testing should be repeated with either an arterial or venous sample on the glucometer or sent to the main labortory for testing. Comment 2025 1:10 PM EST [facility] Shearing Machine Operator ID Rodney Vázquez 025 1:10 PM EST [facility] Device ID [id number] 2025 1:10 PM EST [facility] Specimen Type POC Capillary 2025 1:10 PM EST [facility] Blood Capillary blood specimen / Unknown 2025 1:08 PM EST 2025 1:10 PM EST Satnam Beckford MD LAB POINT OF CARE T EST DOCKED DEVICE UNSOLICITED RESULTS Final Result [facility] [address] [place] [address] * FL ERC (2025 12:59 PM EST) Narrative IMAGING - 2025 2:38 PM EST Images were obtained for surgical purposes. See Parmjit Garcia's surgical note in the patient's chart for the findings. Parmjit Garcia MD IMG FLUOROSCOPY PROCEDURES Fin al Result IMAGING * ERCP (2025 12:58 PM EST) Anatomical Region Laterality Modality Endoscopy Narrative 2025 2:45 PM EST Table formatting from the original result was not included. Impression EGD: Normal esophagus. Normal stomach. Normal duodenum and major ampulla. ERCP: Complete major papilla sphincterotomy performed. Cholangiogram reveals normal hepatobiliary ductal system, with no significant evidence of anastomotic mismatch or stricture. Balloon sweeps with removal of contrast and bile. One 7 Fr x 7 cm double pigtail stent placed in the right main hepatic duct. Post Procedure Diagnosis Liver transplant recipient (CMS/HCC) Recommendations Return to hospital [facility] for ongoing care Clear liquid diet today, advance diet as tolerated tomorrow if no signs of complications Continue to trend LFTs Avoid therapeutic anticoagulation and therapeutic antiplatelet for 72h post-procedure (okay for Aspirin 81mg and DVT prophylaxis) Repeat ERCP with stent exchange/removal in 3 months Indication Hyperbilirubinemia, Liver transplant recipient (CMS/HCC) Medications See anesthesia record for anesthesia administered medications. Staff Staff Role [facility] Kearns, DEMETRIA Endo Nurse Yari Henderson RN Endo Nurse Da De MD Anesthesiologist Bethany Ayers CRNA CRNA Plentz, Ruben R, MD Proceduralist Yi Reese Endo Fish Seiner Rell Vivas MD Proceduralist Preprocedure A history and physical has been performed, and patient medication allergies have been reviewed. The patient's tolerance of previous anesthesia has been reviewed. The risks and benefits of the procedure and the sedation options and risks were discussed with the patient. All questions were answered and informed consent obtained. Details of the Procedure The patient underwent general anesthesia, which was administered by an anesthesia professional. The patient's blood pressure, heart rate, level of consciousness, oxygen saturation and respirations were monitored throughout the procedure. The scope was introduced into the mouth through a bite block and advanced to the second part of the duodenum. Insufflated with carbon dioxide. Clinical intention completely achieved. The patient experienced no blood loss. The procedure was not difficult. The patient tolerated the procedure well. There were no apparent adverse events. Fluoroscopy was administered by Radiology staff. Attestation I was present for the entire procedure Specimens No specimens were documented in this log. Implants Implants Implant Type Site Status Size Editing User Findings EGD: The upper third of the esophagus, middle third of the esophagus, lower third of the esophagus and GE junction appeared normal. The cardia, fundus of the stomach, body of the stomach, incisura, antrum and pylorus appeared normal. The duodenal bulb, 1st part of the duodenum, 2nd part of the duodenum and ampullary region appeared normal. ERCP: The industrial maintenance repairer helper film showed manju. The duodenoscope was passed under direct vision through the mouth and advanced to the second portion of the duodenum. The major papilla was visualized. The major papilla was [place]. Endo-biliary stent placed during transplant no longer present. The common bile duct was deeply cannulated using a traction sphincterotome with 270 cm x 0.025 straight guidewire. Complete major papilla sphincterotomy was performed using a sphincterotome. A cholangiogram was performed using a balloon occlusion technique. I personally interpreted the bile duct images. Ductal flow of contrast was adequate. Normal hepatobiliary ductal system, with no evidence of significant anastomotic mismatch or stricture. Multiple sweeps were performed in the common bile duct using a 8.5 mm balloon. No material was present to remove. One 7 Fr x 7 cm double pigtail plastic stent was placed successfully in the right main hepatic duct. The duodenoscope was withdrawn into the stomach. Fluid and air was suctioned from the stomach. Retroflexion was used to examine the cardia. The duodenoscope was withdrawn form the mouth and the procedure was thus ended. Maciel Olson MD GI PROCEDURE ORDERABLES Final Re sult * POCT glucose meter (2025 8:35 AM EST) Pathologist [facility] POCT Glucose 94 74 - 99 mg/dL 2025 8:37 AM EST [facility] Comment:Accuracy of a glucos e result obtained from a capillary whole blood specimen relies upon adequate, non-compromised capillary blood flow. If the capillary glucose result is not consistent with the patient's clinical signs and symptoms, glucose testing should be repeated with either an arterial or venous sample on the glucometer or sent to the main labortory for testing. Comment 2025 8:37 AM EST [facility] Shearing Machine Operator ID Dominic Canchola 2025 8:37 AM EST [facility] Device ID [id number] 2025 8:37 AM EST [facility] Specimen Type POC Capillary 2025 8:37 AM EST [facility] Blood Capillary blood specimen / Unknown 2025 8:35 AM EST 2025 8:37 AM EST Satnam Beckford MD LAB POINT OF CARE T EST DOCKED DEVICE UNSOLICITED RESULTS Final Result [facility] [address] [place] [address] * POCT glucose meter (2025 7:50 AM EST) Pathologist [facility] POCT Glucose 84 74 - 99 mg/dL 2025 7:52 AM EST [facility] Comment:Accuracy of a glucos e result obtained from a capillary whole blood specimen relies upon adequate, non-compromised capillary blood flow. If the capillary glucose result is not consistent with the patient's clinical signs and symptoms, glucose testing should be repeated with either an arterial or venous sample on the glucometer or sent to the main labortory for testing. Comment 2025 7:52 AM EST [facility] Shearing Machine Operator ID Dominic Canchola 2025 7:52 AM EST [facility] Device ID [id number] 2025 7:52 AM EST [facility] Specimen Type POC Capillary 2025 7:52 AM EST [facility] Blood Capillary blood specimen / Unknown 2025 7:50 AM EST 2025 7:52 AM EST Maciel Olson MD LAB POINT OF CARE TE ST DOCKED DEVICE UNSOLICITED RESULTS Final Result Performing Organization Address City/[facility]/ZIP Co de Phone Number [facility] [address] [place] [address] * (ABNORMAL) POCT glucose meter (2025 6:53 AM EST) POCT Glucose 135(H) 74 - 99 mg/dL 2025 6:54 AM EST [facility] Comment:Accuracy of a glucos e result obtained from a capillary whole blood specimen relies upon adequate, non-compromised capillary blood flow. If the capillary glucose result is not consistent with the patient's clinical signs and symptoms, glucose testing should be repeated with either an arterial or venous sample on the glucometer or sent to the main labortory for testing. Comment 2025 6:54 AM EST [facility] Shearing Machine Operator ID Vida Garcia 2025 6:54 AM EST [facility] Device ID [id number] 2025 6:54 AM EST [facility] Specimen Type POC Capillary 2025 6:54 AM EST [facility] Blood Capillary blood specimen / Unknown 2025 6:53 AM EST 2025 6:54 AM EST us Maciel Olson MD LAB POINT OF CARE TE ST DOCKED DEVICE UNSOLICITED RESULTS Final Result Performing Organization Address City/[facility]/ZIP Co de Phone Number [facility] [address] [place] [address] * POCT glucose meter (2025 6:13 AM EST) POCT Glucose 89 74 - 99 mg/dL 2025 6:14 AM EST [facility] Comment:Accuracy of a glucos e result obtained from a capillary whole blood specimen relies upon adequate, non-compromised capillary blood flow. If the capillary glucose result is not consistent with the patient's clinical signs and symptoms, glucose testing should be repeated with either an arterial or venous sample on the glucometer or sent to the main labortory for testing. Comment 2025 6:14 AM EST [facility] Shearing Machine Operator ID Daylin Mckeon 2025 6:14 AM EST [facility] Device ID [id number] 2025 6:14 AM EST [facility] Specimen Type POC Capillary 2025 6:14 AM EST [facility] Blood Capillary blood specimen / Unknown 2025 6:13 AM EST 2025 6:14 AM EST us Maciel Olson MD LAB POINT OF CARE TE ST DOCKED DEVICE UNSOLICITED RESULTS Final Result Performing Organization Address City/[facility]/ZIP Co de Phone Number [facility] [address] [place] [address] * POCT glucose meter (2025 5:53 AM EST) [facility] POCT Glucose 79 74 - 99 mg/dL 2025 5:55 AM EST [facility] Comment:Accuracy of a glucos e result obtained from a capillary whole blood specimen relies upon adequate, non-compromised capillary blood flow. If the capillary glucose result is not consistent with the patient's clinical signs and symptoms, glucose testing should be repeated with either an arterial or venous sample on the glucometer or sent to the main labortory for testing. Comment 2025 5:55 AM EST [facility] Shearing Machine Operator ID Vida Garcia 2025 5:55 AM EST [facility] Device ID [id number] 2025 5:55 AM EST [facility] Specimen Type POC Capillary 2025 5:55 AM EST [facility] Blood Capillary blood specimen / Unknown 2025 5:53 AM EST 2025 5:55 AM EST us Maciel Olson MD LAB POINT OF CARE TE ST DOCKED DEVICE UNSOLICITED RESULTS Final Result [facility] [address] [place] [address] * Phosphorus (2025 4:51 AM EST) Phosphorus, Plasma 2.9 2.5 - 4.5 mg/dL 2025 5:25 AM EST [facility] Blood Venous blood specimen / Unknown Venipuncture / Unknown 2025 4:51 AM EST 2025 4:57 AM EST us Maciel Olson MD LAB BLOOD ORDERABLES Final Resul t Performing Organization Address City/[facility]/ZIP Co de Phone Number [facility] [address] [place] [address] * Magnesium (2025 4:51 AM EST) Magnesium, Plasma 2.2 1.9 - 2.4 mg/dL 2025 5:25 AM EST [facility] Blood Venous blood specimen / Unknown Venipuncture / Unknown 2025 4:51 AM EST 2025 4:57 AM EST us Maciel Olson MD LAB BLOOD ORDERABLES Final Resul t Performing Organization Address City/[facility]/ZIP Co de Phone Number [facility] [address] [place] [address] * (ABNORMAL) Comprehensive metabolic panel (2025 4:51 AM EST) Glucose, Plasma 76 74 - 99 mg/dL 2025 5:25 AM EST [facility] BUN, Plasma 26(H) 7 - 21 mg/dL 2025 5:25 AM EST [facility] Creatinine, Plasma 1.26(H) 0.70 - 1.20 mg/dL 2025 5:25 AM EST [facility] BUN/Creatinine Ratio 21 2025 5:25 AM EST [facility] Sodium, Plasma 133(L) 136 - 145 mmol/L 2025 5:25 AM EST [facility] Potassium, Plasma 3.6 3.6 - 4.9 mmol/L 2025 5:25 AM EST [facility] Chloride, Plasma 102 97 - 107 mmol/L 2025 5:25 AM EST [facility] CO2, Plasma 23 22 - 29 mmol/L 2025 5:25 AM EST [facility] Anion Gap 8 6 - 16 mmol/L 2025 5:25 AM EST [facility] Total Calcium, Plasma 7.6(L) 8.9 - 10.2 mg/dL 2025 5:25 AM EST [facility] Total Protein 4.3(L) 6.3 - 7.9 g/dL 2025 5:25 AM EST [facility] Albumin, Plasma 2.6(L) 3.5 - 5.2 g/dL 2025 5:25 AM EST [facility] AST, Plasma 22 10 - 50 U/L 2025 5:25 AM EST [facility] ALT, Plasma 70(H) 10 - 50 U/L 2025 5:25 AM EST [facility] Alkaline Phosphatase, Plasma 107 40 - 115 U/L 2025 5:25 AM EST [facility] Total Bilirubin, Plasma 10.4(H) 0.2 - 1.1 mg/dL 2025 5:25 AM EST [facility] eGFRcr 71.2 mL/min/1.7 3m*2 2025 5:25 AM EST [facility] Comment:Reported eGFRcr in m L/min/1.73m2 is based the CKD-EPI 2020 equation that does not use a race coefficient. Blood Venous blood specimen / Unknown Venipuncture / Unknown 2025 4:51 AM EST 2025 4:57 AM EST us Maciel Olson MD LAB BLOOD ORDERABLES Final Resul t [facility] [address] [place] [address] * (ABNORMAL) CBC W/O Differential (2025 4:51 AM EST) WBC Count 5.23 3.70 - 10.30 10*3/uL LAB HEMATOLOGY METHOD 2025 5:10 AM EST [facility] RBC Count 2.49(L) 4.60 - 6.10 10*6/uL LAB HEMATOLOGY METHOD 2025 5:10 AM EST [facility] HGB 8.1(L) 13.7 - 17.5 g/dL LAB HEMATOLOGY METHOD 2025 5:10 AM EST [facility] HCT 24.3(L) 40.0 - 51.0 % LAB HEMATOLOGY METHOD 2025 5:10 AM EST [facility] Platelet Count 45(L) 155 - 369 10*3/uL LAB HEMATOLOGY METHOD 2025 5:10 AM EST [facility] MCV 98 79 - 98 fL LAB HEMATOLOGY METHOD 2025 5:10 AM EST [facility] MCH 32.5(H) 26.0 - 32.0 pg LAB HEMATOLOGY METHOD 2025 5:10 AM EST [facility] MCHC 33.3 30.7 - 35.5 g/dL LAB HEMATOLOGY METHOD 2025 5:10 AM EST [facility] RDW 23.5(H) 11.5 - 14.5 % LAB HEMATOLOGY METHOD 2025 5:10 AM EST [facility] MPV 10.7 8.8 - 12.5 fL LAB HEMATOLOGY METHOD 2025 5:10 AM EST [facility] nRBC 0.0 <=0.0 per 100 WBCs LAB HEMATOLOGY METHOD 2025 5:10 AM EST [facility] Blood Venous blood specimen / Unknown Venipuncture / Unknown 2025 4:51 AM EST 2025 4:57 AM EST us Maciel Olson MD LAB BLOOD ORDERABLES Final Resul t [facility] [address] [place] [address] * (ABNORMAL) Prothrombin Time/INR (2025 4:51 AM EST) Prothrombin Time 15.1(H) 12.0 - 14.3 sec LAB COAGULATION METHOD 2025 5:18 AM EST [facility] INR 1.2(H) 0.9 - 1.1 LAB COAGULATION METHOD 2025 5:18 AM EST [facility] Blood Venous blood specimen / Unknown Venipuncture / Unknown 2025 4:51 AM EST 2025 4:58 AM EST [facility] - 2025 5:18 AM EST OPTIMAL INR RANGES FOR PATIENT ON ORAL ANTICOAGULANT THERAPY Prevention of venous thromboembolism INR 2.0 to 3.0 In patients with heart disease: Atrial fibrillation INR 2.0 to 3.0 Valvular heart disease INR 2.0 to 3.0 Tissue heart valves INR 2.0 to 3.0 Mechanical prosthetic valves INR 2.5 to 3.5 Prevention of recurrent OR INR 2.5 to 3.5 us Maciel Olson MD LAB BLOOD ORDERABLES Final Resul t [facility] [address] [place] [address] * Tacrolimus (2025 4:51 AM EST) Tacrolimus 5.8 4.0 - 17.0 ng/mL 2025 12:28 PM EST [facility] Comment: Tacrolimus therapeutic range: Initial (<3 mo.) Maintenance Kidney 8-13 ng/mL 4-8 ng/mL Liver 8-13 ng/mL 4-8 ng/mL Heart 8-15 ng/mL 7-13 ng/mL Lung;Heart/Lung 8-17 ng/mL 8-13 ng/mL Blood Venous blood specimen / Unknown Venipuncture / Unknown 2025 4:51 AM EST 2025 4:57 AM EST Narrative [facility] - 2025 12:28 PM EST Test performed by LC-MS/MS at the [facility]. This test was developed and its performance characteristics determined by [facility]. It has not been cleared or approved by the FDA. The laboratory is regulated under CLIA as qualified to perform high-complexity testing. This test is used for clinical purposes. Test performed by LC-MS/MS at the [facility]. This test was developed and its performance characteristics determined by [facility]. It has not been cleared or approved by the FDA. The laboratory is regulated under CLIA as qualified to perform high-complexity testing. This test is used for clinical purposes. us Maciel Olson MD LAB BLOOD ORDERABLES Final Resul t Performing Organization Address City/[facility]/ZIP Co de Phone Number [facility] [address] [place] [address] * (ABNORMAL) POCT glucose meter (01/11/2025 8:22 PM EST) POCT Glucose 111(H) 74 - 99 mg/dL 01/11/2025 8:24 PM EST [facility] Comment:Accuracy of a glucos e result obtained from a capillary whole blood specimen relies upon adequate, non-compromised capillary blood flow. If the capillary glucose result is not consistent with the patient's clinical signs and symptoms, glucose testing should be repeated with either an arterial or venous sample on the glucometer or sent to the main labortory for testing. Comment 01/11/2025 8:24 PM EST [facility] Shearing Machine Operator ID Vida Garcia 01/11/2025 8:24 PM EST [facility] Device ID [id number] 01/11/2025 8:24 PM EST [facility] Specimen Type POC Capillary 01/11/2025 8:24 PM EST [facility] Blood Capillary blood specimen / Unknown 01/11/2025 8:22 PM EST 01/11/2025 8:24 PM EST us Maciel Olson MD LAB POINT OF CARE TE ST DOCKED DEVICE UNSOLICITED RESULTS Final Result Performing Organization Address City/[facility]/ZIP Co de Phone Number [facility] [address] [place] [address] * (ABNORMAL) POCT glucose meter (01/11/2025 4:54 PM EST) POCT Glucose 110(H) 74 - 99 mg/dL 01/11/2025 4:56 PM EST [facility] Comment:Accuracy of a glucos e result obtained from a capillary whole blood specimen relies upon adequate, non-compromised capillary blood flow. If the capillary glucose result is not consistent with the patient's clinical signs and symptoms, glucose testing should be repeated with either an arterial or venous sample on the glucometer or sent to the main labortory for testing. Comment 01/11/2025 4:56 PM EST [facility] Shearing Machine Operator ID Tila Garcia 4:56 PM EST [facility] Device ID [id number] 01/11/2025 4:56 PM EST [facility] Specimen Type POC Capillary 01/11/2025 4:56 PM EST [facility] Blood Capillary blood specimen / Unknown 01/11/2025 4:54 PM EST 01/11/2025 4:56 PM EST Maciel Olson MD LAB POINT OF CARE TE ST DOCKED DEVICE UNSOLICITED RESULTS Final Result Performing Organization Address City/State/[facility] Co de Phone Number [facility] [address] [place] [address] * (ABNORMAL) POCT glucose meter (01/11/2025 11:35 AM EST) [facility] POCT Glucose 117(H) 74 - 99 mg/dL 01/11/2025 11:37 AM EST [facility] Comment:Accuracy of a glucos e result obtained from a capillary whole blood specimen relies upon adequate, non-compromised capillary blood flow. If the capillary glucose result is not consistent with the patient's clinical signs and symptoms, glucose testing should be repeated with either an arterial or venous sample on the glucometer or sent to the main labortory for testing. Comment 01/11/2025 11:37 AM EST [facility] Shearing Machine Operator ID Tila Garcia 11:37 AM EST [facility] Device ID [id number] 01/11/2025 11:37 AM EST [facility] Specimen Type POC Capillary 01/11/2025 11:37 AM EST [facility] Blood Capillary blood specimen / Unknown 01/11/2025 11:35 AM EST 01/11/2025 11:37 AM EST Maciel Olson MD LAB POINT OF CARE TE ST DOCKED DEVICE UNSOLICITED RESULTS Final Result Performing Organization Address City/[facility] Co de Phone Number [facility] [address] [place] [address] * POCT glucose meter (01/11/2025 8:06 AM EST) POCT Glucose 91 74 - 99 mg/dL 01/11/2025 8:07 AM EST [facility] Comment:Accuracy of a glucos e result obtained from a capillary whole blood specimen relies upon adequate, non-compromised capillary blood flow. If the capillary glucose result is not consistent with the patient's clinical signs and symptoms, glucose testing should be repeated with either an arterial or venous sample on the glucometer or sent to the main labortory for testing. Comment 01/11/2025 8:07 AM EST [facility] Shearing Machine Operator ID Tila Garcia 8:07 AM EST [facility] Device ID [id number] 01/11/2025 8:07 AM EST [facility] Specimen Type POC Capillary 01/11/2025 8:07 AM EST [facility] Blood Capillary blood specimen / Unknown 01/11/2025 8:06 AM EST 01/11/2025 8:07 AM EST Maciel Olson MD LAB POINT OF CARE TE ST DOCKED DEVICE UNSOLICITED RESULTS Final Result Performing Organization Address City/[facility] Co de Phone Number [facility] [address] [place] [address] * (ABNORMAL) Prothrombin Time/INR (01/11/2025 5:41 AM EST) Prothrombin Time 15.9(H) 12.0 - 14.3 sec LAB COAGULATION METHOD 01/11/2025 6:05 AM EST [facility] INR 1.2(H) 0.9 - 1.1 LAB COAGULATION METHOD 01/11/2025 6:05 AM EST [facility] Blood Venous blood specimen / Unknown Venipuncture / Unknown 01/11/2025 5:41 AM EST 01/11/2025 5:45 AM EST Narrative [facility] - 01/11/2025 6:05 AM EST OPTIMAL INR RANGES FOR PATIENT ON ORAL ANTICOAGULANT THERAPY Prevention of venous thromboembolism INR 2.0 to 3.0 In patients with heart disease: Atrial fibrillation INR 2.0 to 3.0 Valvular heart disease INR 2.0 to 3.0 Tissue heart valves INR 2.0 to 3.0 Mechanical prosthetic valves INR 2.5 to 3.5 Prevention of recurrent OR INR 2.5 to 3.5 us Maciel Olson MD LAB BLOOD ORDERABLES Final Resul t Performing Organization Address City/[facility] Co de Phone Number [facility] [address] [place] [address] * Phosphorus (01/11/2025 4:49 AM EST) Phosphorus, Plasma 3.6 2.5 - 4.5 mg/dL 01/11/2025 5:30 AM EST [facility] Blood Venous blood specimen / Unknown Venipuncture / Unknown 01/11/2025 4:49 AM EST 01/11/2025 4:57 AM EST us Maciel Olson MD LAB BLOOD ORDERABLES Final Resul t Performing Organization Address [facility] Phone Number [facility] [address] [place] [address] * (ABNORMAL) Magnesium (01/11/2025 4:49 AM EST) Magnesium, Plasma 1.6(L) 1.9 - 2.4 mg/dL 01/11/2025 5:30 AM EST [facility] Blood Venous blood specimen / Unknown Venipuncture / Unknown 01/11/2025 4:49 AM EST 01/11/2025 4:57 AM EST us Maciel Olson MD LAB BLOOD ORDERABLES Final Resul t Performing Organization Address City/[facility] Co de Phone Number [facility] [address] [place] [address] * (ABNORMAL) Comprehensive metabolic panel (01/11/2025 4:49 AM EST) Pathologist [facility] Glucose, Plasma 81 74 - 99 mg/dL 01/11/2025 5:30 AM [facility] BUN, Plasma 31(H) 7 - 21 mg/dL 01/11/2025 5:30 AM [facility] Creatinine, Plasma 1.36(H) 0.70 - 1.20 mg/dL 01/11/2025 5:30 AM [facility] BUN/Creatinine Ratio 23 01/11/2025 5:30 AM [facility] Sodium, Plasma 137 136 - 145 mmol/L 01/11/2025 5:30 AM [facility] Potassium, Plasma 3.5(L) 3.6 - 4.9 mmol/L 01/11/2025 5:30 AM [facility] Chloride, Plasma 104 97 - 107 mmol/L 01/11/2025 5:30 AM [facility] CO2, Plasma 24 22 - 29 mmol/L 01/11/2025 5:30 AM [facility] Anion Gap 9 6 - 16 mmol/L 01/11/2025 5:30 AM [facility] Total Calcium, Plasma 7.8(L) 8.9 - 10.2 mg/dL 01/11/2025 5:30 AM [facility] Total Protein 4.4(L) 6.3 - 7.9 g/dL 01/11/2025 5:30 AM [facility] Albumin, Plasma 2.8(L) 3.5 - 5.2 g/dL 01/11/2025 5:30 AM [facility] AST, Plasma 31 10 - 50 U/L 01/11/2025 5:30 AM [facility] ALT, Plasma 88(H) 10 - 50 U/L 01/11/2025 5:30 AM [facility] Alkaline Phosphatase, Plasma 121(H) 40 - 115 U/L 01/11/2025 5:30 AM [facility] Total Bilirubin, Plasma 8.5(H) 0.2 - 1.1 mg/dL 01/11/2025 5:30 AM [facility] eGFRcr 65.4 mL/min/1.7 3m*2 01/11/2025 5:30 AM EST [facility] Comment:Reported eGFRcr in m L/min/1.73m2 is based the CKD-EPI 2020 equation that does not use a race coefficient. Blood Venous blood specimen / Unknown Venipuncture / Unknown 01/11/2025 4:49 AM EST 01/11/2025 4:57 AM EST us Maciel Olson MD LAB BLOOD ORDERABLES Final Resul t [facility] [address] [place] [address] * (ABNORMAL) CBC W/O Differential (01/11/2025 4:49 AM EST) WBC Count 6.42 3.70 - 10.30 10*3/uL LAB HEMATOLOGY METHOD 01/11/2025 5:07 AM EST [facility] RBC Count 2.57(L) 4.60 - 6.10 10*6/uL LAB HEMATOLOGY METHOD 01/11/2025 5:07 AM EST [facility] HGB 8.3(L) 13.7 - 17.5 g/dL LAB HEMATOLOGY METHOD 01/11/2025 5:07 AM EST [facility] HCT 24.6(L) 40.0 - 51.0 % LAB HEMATOLOGY METHOD 01/11/2025 5:07 AM EST [facility] Platelet Count 39(L) 155 - 369 10*3/uL LAB HEMATOLOGY METHOD 01/11/2025 5:07 AM EST [facility] MCV 96 79 - 98 fL LAB HEMATOLOGY METHOD 01/11/2025 5:07 AM EST [facility] MCH 32.3(H) 26.0 - 32.0 pg LAB HEMATOLOGY METHOD 01/11/2025 5:07 AM EST [facility] MCHC 33.7 30.7 - 35.5 g/dL LAB HEMATOLOGY METHOD 01/11/2025 5:07 AM EST [facility] RDW 22.6(H) 11.5 - 14.5 % LAB HEMATOLOGY METHOD 01/11/2025 5:07 AM EST [facility] MPV 10.2 8.8 - 12.5 fL LAB HEMATOLOGY METHOD 01/11/2025 5:07 AM EST [facility] nRBC 0.0 <=0.0 per 100 WBCs LAB HEMATOLOGY METHOD 01/11/2025 5:07 AM EST [facility] Blood Venous blood specimen / Unknown Venipuncture / Unknown 01/11/2025 4:49 AM EST 01/11/2025 4:57 AM EST Maciel Olson MD LAB BLOOD ORDERABLES Final Resul t Performing Organization Address [facility] Co de Phone Number [facility] [address] [place] [address] * Tacrolimus (01/11/2025 4:49 AM EST) Tacrolimus 4.3 4.0 - 17.0 ng/mL 01/11/2025 12:36 PM EST [facility] Comment: Tacrolimus therapeutic range: Initial (<3 mo.) Maintenance Kidney 8-13 ng/mL 4-8 ng/mL Liver 8-13 ng/mL 4-8 ng/mL Heart 8-15 ng/mL 7-13 ng/mL Lung;Heart/Lung 8-17 ng/mL 8-13 ng/mL Blood Venous blood specimen / Unknown Venipuncture / Unknown 01/11/2025 4:49 AM EST 01/11/2025 4:57 AM EST Narrative [facility] - 01/11/2025 12:36 PM EST Test performed by LC-MS/MS at the [facility]. This test was developed and its performance characteristics determined by [facility]. It has not been cleared or approved by the FDA. The laboratory is regulated under CLIA as qualified to perform high-complexity testing. This test is used for clinical purposes. Test performed by LC-MS/MS at the [facility]. This test was developed and its performance characteristics determined by [facility]. It has not been cleared or approved by the FDA. The laboratory is regulated under CLIA as qualified to perform high-complexity testing. This test is used for clinical purposes. Maciel Olson MD LAB BLOOD ORDERABLES Final Resul t [facility] [address] [place] [address] * (ABNORMAL) POCT glucose meter (01/10/2025 8:42 PM EST) [facility] POCT Glucose 104(H) 74 - 99 mg/dL 01/10/2025 8:44 PM EST [facility] Comment:Accuracy of a glucos e result obtained from a capillary whole blood specimen relies upon adequate, non-compromised capillary blood flow. If the capillary glucose result is not consistent with the patient's clinical signs and symptoms, glucose testing should be repeated with either an arterial or venous sample on the glucometer or sent to the main labortory for testing. Comment 01/10/2025 8:44 PM EST [facility] Shearing Machine Operator ID Elver Medel 01/10/2025 8:44 PM EST [facility] Device ID [id number] 01/10/2025 8:44 PM EST [facility] Specimen Type POC Capillary 01/10/2025 8:44 PM EST [facility] Blood Capillary blood specimen / Unknown 01/10/2025 8:42 PM EST 01/10/2025 8:44 PM EST Maciel Olson MD LAB POINT OF CARE TE ST DOCKED DEVICE UNSOLICITED RESULTS Final Result Performing Organization Address [facility] Co de Phone Number [facility] [address] [place] [address] * (ABNORMAL) POCT glucose meter (01/10/2025 5:02 PM EST) [facility] POCT Glucose 102(H) 74 - 99 mg/dL 01/10/2025 5:03 PM EST [facility] Comment:Accuracy of a glucos e result obtained from a capillary whole blood specimen relies upon adequate, non-compromised capillary blood flow. If the capillary glucose result is not consistent with the patient's clinical signs and symptoms, glucose testing should be repeated with either an arterial or venous sample on the glucometer or sent to the main labortory for testing. Comment 01/10/2025 5:03 PM EST [facility] Shearing Machine Operator ID Gaby Alfaro 01/10/2025 5:03 PM EST [facility] Device ID [id number] 01/10/2025 5:03 PM EST [facility] Specimen Type POC Capillary 01/10/2025 5:03 PM EST [facility] Blood Capillary blood specimen / Unknown 01/10/2025 5:02 PM EST 01/10/2025 5:03 PM EST us Maciel Olson MD LAB POINT OF CARE TE ST DOCKED DEVICE UNSOLICITED RESULTS Final Result Performing Organization Address City/State/[facility] Co de Phone Number [facility] [address] [place] [id number] * MRCP w and wo IV Contrast (01/10/2025 4:22 PM EST) Anatomical Region Laterality Modality Abdomen Magnetic Resonan ce Impressions 01/11/2025 11:43 AM EST Short segment (approximately 1 cm) apparent narrowing in the extrahepatic duct at the suspected anastomosis is likely artifactual given presence of adjacent susceptibility artifact and lack of associated proximal bile duct dilatation. If there is high clinical suspicion for anastomotic stricture, consider further evaluation with ERCP. Small perihepatic hematoma. 2.3 cm left hemiliver lesion which may reflect a small hematoma or hemorrhagic cyst. Follow-up imaging could be considered to assure resolution/stability. Positive fluid balance with small volume ascites, small right pleural effusion, trace left pleural effusion, and body wall edema. CRITICAL RESULT: No. COMMUNICATION: Per this written report. Drafted by Rojelio Hahn MD on 01/11/2025 10:48 AM Final report signed by Rojelio Hahn MD on 01/11/2025 11:43 AM Narrative 01/11/2025 11:43 AM EST CLINICAL INDICATION: Liver disease, chronic, tumor screening TECHNIQUE: MR imaging of the abdomen was performed with and without intravenous contrast material using the following sequences: coronal single shot T2 weighted fast spin echo, axial T2 weighted sequences with and without fat saturation, axial dual phase gradient echo, pre and dynamic postcontrast 3-D T1 weighted gradient echo with fat saturation (axial and coronal), and axial diffusion. Heavily T2-weighted 2D MRCP sequences were acquired. In addition, advanced 3D workstation manipulation and review of the data set was performed by the interpreting physician to further define anatomy and possible pathology. Images of areas of interest were created utilizing various techniques. These images were saved and transferred to PACS if significant. 19.5 mL of Dotarem was administered. COMPARISON: Pretransplant 10/22/2024 CT abdomen pelvis FINDINGS: Gallbladder: Surgically absent. Biliary tree: There is an approximately 1 cm segment of extrahepatic bile duct (mid duct, at the suspected site of anastomosis) with apparent narrowing. However, there is no significant extrahepatic duct dilatation proximal to this narrowing with the duct measuring approximately 5 mm both proximal and distal to the narrowing. In addition, there is no significant intrahepatic duct dilatation and there is susceptibility artifact at this site (image 40 series 10). No signal void to suggest choledocholithiasis. Pancreas: Normal signal intensity and enhancement. No pancreatic duct dilatation. No pancreatic divisum. Liver: Postsurgical changes from prior orthotopic liver transplant. Normal hepatic morphology. No hepatic fat or iron deposition. Small perihepatic hematoma measuring approximately 6 x 1.7 cm dorsal to the right hemiliver (38, 22). Small focus of susceptibility artifact within the hematoma may reflect surgical clip or trace gas. 2.3 cm somewhat serpentine/bilobed focal signal abnormality in the left hemiliver at the junction of hepatic segments 2 and 3. This demonstrates fluid signal intensity on T2-weighted images and high T1 signal intensity. No clear enhancement on postcontrast subtraction sequences, other than mild peripheral enhancement. This may reflect a small hematoma or hemorrhagic cyst. Additional punctate right hemiliver lesion at the dome (hepatic segment 7; image 10 series 5 for example) is difficult to characterize by virtue of its small size but may reflect a tiny cyst or hemangioma. Spleen: Enlarged spleen measuring approximately 15 cm in craniocaudal length. No suspicious splenic mass. Adrenal Glands: No adrenal nodule. Kidneys: Normal size and position with symmetric enhancement. No hydronephrosis or suspicious renal mass. Punctate right kidney interpolar region cyst. Fluid Survey: Small volume ascites. Small right pleural effusion. Trace left pleural fluid. Vasculature: Normal caliber abdominal aorta. Patent superior mesenteric artery. Suspected narrowing and poststenotic dilatation in the proximal celiac. Mild dilatation of the suspected hepatic arterial anastomosis which may be postsurgical. Limited assessment of the hepatic arteries. The right hepatic artery appears patent. The proximal left hepatic artery is not well visualized, although this may be secondary to technical limitations of this examination. The more left hepatic artery appears patent in the hilum. Mild suspected narrowing at the portal vein anastomosis. Patent portal veins. Mild narrowing at the caudal inferior vena caval anastomosis. Patent IVC. Persistent portosystemic collateral vessels. Lymph Nodes: No suspicious lymph nodes. Musculoskeletal: No aggressive marrow signal abnormalities. Other: Postsurgical changes in the ventral abdominal wall with mild luaren- incisional fluid. Symmetric mild to moderate gynecomastia. Mild mural thickening in the right colon, nonspecific, possibly related to portal hypertension. Scattered mesenteric interloop fluid. Body wall edema. Procedure Note Rojelio Hahn MD - 01/11/2025 CLINICAL INDICATION: Liver disease, chronic, tumor screening TECHNIQUE: MR imaging of the abdomen was performed with and without intravenouscontrast material using the following sequences: coronal single shot [id number] fast spin echo, axial T2 weighted sequences with and without fatsaturation, axial dual phase gradient echo, pre and dynamic postcontrast3-D T1 weighted gradient echo with fat saturation (axial and coronal), andaxial diffusion. Heavily T2-weighted 2D MRCP sequences were acquired. Inaddition, advanced 3D workstation manipulation and review of the data setwas performed by the interpreting physician to further define anatomy andpossible pathology. Images of areas of interest were created utilizingvarious techniques. These images were saved and transferred to PACS ifsignificant. 19.5 mL of Dotarem was administered. COMPARISON: Pretransplant 10/22/2024 CT abdomen pelvis FINDINGS: Gallbladder: Surgically absent. Biliary tree: There is an approximately 1 cm segment of extrahepatic bileduct (mid duct, at the suspected site of anastomosis) with apparentnarrowing. However, there is no significant extrahepatic duct dilatationproximal to this narrowing with the duct measuring approximately 5 mm bothproximal and distal to the narrowing. In addition, there is no significantintrahepatic duct dilatation and there is susceptibility artifact at thissite (image 40 series 10). No signal void to suggestcholedocholithiasis. Pancreas: Normal signal intensity and enhancement. No pancreatic ductdilatation. No pancreatic divisum. Liver: Postsurgical changes from prior orthotopic liver transplant. Normalhepatic morphology. No hepatic fat or iron deposition. Small perihepatichematoma measuring approximately 6 x 1.7 cm dorsal to the right hemiliver(38, 22). Small focus of susceptibility artifact within the hematoma mayreflect surgical clip or trace gas. 2.3 cm somewhat serpentine/bilobedfocal signal abnormality in the left hemiliver at the junction of hepaticsegments 2 and 3. This demonstrates fluid signal intensity on T2-weightedimages and high T1 signal intensity. No clear enhancement on postcontrastsubtraction sequences, other than mild peripheral enhancement. This mayreflect a small hematoma or hemorrhagic cyst. Additional punctate righthemiliver lesion at the dome (hepatic segment 7; image 10 series 5 forexample) is difficult to characterize by virtue of its small size but mayreflect a tiny cyst or hemangioma. Spleen: Enlarged spleen measuring approximately 15 cm in craniocaudallength. No suspicious splenic mass. Adrenal Glands: No adrenal nodule. Kidneys: Normal size and position with symmetric enhancement. Nohydronephrosis or suspicious renal mass. Punctate right kidney interpolarregion cyst. Fluid Survey: Small volume ascites. Small right pleural effusion. Traceleft pleural fluid. Vasculature: Normal caliber abdominal aorta. Patent superior mesentericartery. Suspected narrowing and poststenotic dilatation in the proximalceliac. Mild dilatation of the suspected hepatic arterial anastomosiswhich may be postsurgical. Limited assessment of the hepatic arteries. Theright hepatic artery appears patent. The proximal left hepatic artery isnot well visualized, although this may be secondary to technicallimitations of this examination. The more left hepatic artery appearspatent in the hilum. Mild suspected narrowing at the portal veinanastomosis. Patent portal veins. Mild narrowing at the caudal inferiorvena caval anastomosis. Patent IVC. Persistent portosystemic collateralvessels. Lymph Nodes: No suspicious lymph nodes. Musculoskeletal: No aggressive marrow signal abnormalities. Other: Postsurgical changes in the ventral abdominal wall with mildperi- incisional fluid. Symmetric mild to moderate gynecomastia. Mild muralthickening in the right colon, nonspecific, possibly related to portalhypertension. Scattered mesenteric interloop fluid. Body wall edema. IMPRESSION: Short segment (approximately 1 cm) apparent narrowing in the extrahepaticduct at the suspected anastomosis is likely artifactual given presence ofadjacent susceptibility artifact and lack of associated proximal bile ductdilatation. If there is high clinical suspicion for anastomotic stricture,consider further evaluation with ERCP. Small perihepatic hematoma. 2.3 cm left hemiliver lesion which may reflect a small hematoma orhemorrhagic cyst. Follow-up imaging could be considered to assureresolution/stability. Positive fluid balance with small volume ascites, small right pleuraleffusion, trace left pleural effusion, and body wall edema. CRITICAL RESULT: No. COMMUNICATION: Per this written report. Drafted by Rojelio Hahn MD on 01/11/2025 10:48 AM Final report signed by Rojelio Hahn MD on 01/11/2025 11:43 AM Jude Peters MD IMG MRI PROCEDURES Final Result * US Abdomen Doppler Complete (01/10/2025 11:30 AM EST) Anatomical Region Laterality Modality Abdomen Ultrasound Impressions 01/10/2025 1:54 PM EST Patent hepatic vasculature with appropriate flow directionality. The hepatic arterial resistive indices are reduced from 6 days prior but the waveform is within normal limits, more in favor of expected post-op evolution rather than being poststenotic. CRITICAL RESULT: No. COMMUNICATION: Per this written report. By electronically signing this report, I, the attending physician, attest that I have personally reviewed the images/data for the above examination(s) and agree with the final edited report. Drafted by LÓPEZ Bond on 01/10/2025 12:35 PM Final report signed by Sha Dietrich MD on 01/10/2025 1:54 PM Narrative 01/10/2025 1:54 PM EST CLINICAL INDICATION: increased Tbili, post liver transplant TECHNIQUE: Multiplanar evaluation of the hepatic transplant vasculature with color and spectral Doppler images. Limited grayscale images were also obtained. COMPARISON: Ultrasound abdomen January 04, 2025 FINDINGS: Grayscale: Subjectively, the parenchymal echogenicity appears decreased and the echotexture appears slightly more coarse, perhaps edematous, when compared to 6 days prior. These changes are perhaps within expected evolution early post-op. On this limited exam with only single greyscale cine capture, there is no significant intrahepatic biliary dilatation evident. Duplex: Portal Vein: There is antegrade flow within the main portal vein with a velocity of 46.6 cm/sec. Hepatic Arteries: Major transplant hepatic artery at the carol ann-hepatis: Patent with appropriate flow directionality. Brisk systolic upstrokes. The resistive index is 0.48-0.55, decreased from 0.88 previously. Nonspecific increased turbulence and mildly increased velocity of flow when compared to ultrasound 6 days prior, PSV 227 cm/s compared to 188 cm/s previously. These changes are perhaps within expected with early postop adaptation and fluid shifts. Right intrahepatic artery: Patent with appropriate flow directionality. Brisk systolic upstrokes. The resistive index is 0.45 Left intrahepatic artery: Patent with appropriate flow directionality. Brisk systolic upstrokes. The resistive index is 0.46 Hepatic Veins: The hepatic veins are patent at the IVC confluence with normal direction of flow. Procedure Note Sha Dietrich MD - 01/10/2025 CLINICAL INDICATION: increased Tbili, post liver transplant TECHNIQUE: Multiplanar evaluation of the hepatic transplant vasculature with colorand spectral Doppler images. Limited grayscale images were alsoobtained. COMPARISON: Ultrasound abdomen January 04, 2025 FINDINGS: Grayscale: Subjectively, the parenchymal echogenicity appears decreased and theechotexture appears slightly more coarse, perhaps edematous, when comparedto 6 days prior. These changes are perhaps within expected evolutionearly post-op. On this limited exam with only single greyscale cinecapture, there is no significant intrahepatic biliary dilatation evident. Duplex: Portal Vein: There is antegrade flow within the main portal vein with avelocity of 46.6 cm/sec. Hepatic Arteries: Major transplant hepatic artery at the carol ann-hepatis: Patent withappropriate flow directionality. Brisk systolic upstrokes. The resistiveindex is 0.48-0.55, decreased from 0.88 previously. Nonspecific increasedturbulence and mildly increased velocity of flow when compared toultrasound 6 days prior, PSV 227 cm/s compared to 188 cm/s previously.These changes are perhaps within expected with early postop adaptation andfluid shifts. Right intrahepatic artery: Patent with appropriate flow directionality.Brisk systolic upstrokes. The resistive index is 0.45 Left intrahepatic artery: Patent with appropriate flow directionality.Brisk systolic upstrokes. The resistive index is 0.46 Hepatic Veins: The hepatic veins are patent at the IVC confluence withnormal direction of flow. IMPRESSION: Patent hepatic vasculature with appropriate flow directionality. The hepatic arterial resistive indices are reduced from 6 days prior butthe waveform is within normal limits, more in favor of expected post-opevolution rather than being poststenotic. CRITICAL RESULT: No. COMMUNICATION: Per this written report. By electronically signing this report, I, the attending physician, susy I have personally reviewed the images/data for the aboveexamination(s) and agree with the final edited report. Drafted by LÓPEZ Bond on 01/10/2025 12:35 PM Final report signed by Sha Dietrich MD on 01/10/2025 1:54 PM us Jude Peters MD IMG US PROCEDURES Final Result * (ABNORMAL) POCT glucose meter (01/10/2025 11:27 AM EST) Pathologist [facility] POCT Glucose 109(H) 74 - 99 mg/dL 01/10/2025 11:28 AM EST [facility] Comment:Accuracy of a glucos e result obtained from a capillary whole blood specimen relies upon adequate, non-compromised capillary blood flow. If the capillary glucose result is not consistent with the patient's clinical signs and symptoms, glucose testing should be repeated with either an arterial or venous sample on the glucometer or sent to the main labortory for testing. Comment 01/10/2025 11:28 AM EST [facility] Shearing Machine Operator ID Gaby Alfaro 01/10/2025 11:28 AM EST [facility] Device ID [id number] 01/10/2025 11:28 AM EST [facility] Specimen Type POC Capillary 01/10/2025 11:28 AM EST [facility] Blood Capillary blood specimen / Unknown 01/10/2025 11:27 AM EST 01/10/2025 11:28 AM EST us Maciel Olson MD LAB POINT OF CARE TE ST DOCKED DEVICE UNSOLICITED RESULTS Final Result [facility] [address] [place] [address] * (ABNORMAL) Comprehensive Metabolic Panel, Plasma (01/10/2025 9:38 AM EST) Glucose, Plasma 123(H) 74 - 99 mg/dL 01/10/2025 10:13 AM [facility] BUN, Plasma 43(H) 7 - 21 mg/dL 01/10/2025 10:13 AM [facility] Creatinine, Plasma 1.38(H) 0.70 - 1.20 mg/dL 01/10/2025 10:13 AM [facility] BUN/Creatinine Ratio 31 01/10/2025 10:13 AM [facility] Sodium, Plasma 136 136 - 145 mmol/L 01/10/2025 10:13 AM [facility] Potassium, Plasma 3.7 3.6 - 4.9 mmol/L 01/10/2025 10:13 AM [facility] Chloride, Plasma 102 97 - 107 mmol/L 01/10/2025 10:13 AM [facility] CO2, Plasma 24 22 - 29 mmol/L 01/10/2025 10:13 AM [facility] Anion Gap 10 6 - 16 mmol/L 01/10/2025 10:13 AM [facility] Total Calcium, Plasma 8.1(L) 8.9 - 10.2 mg/dL 01/10/2025 10:13 AM [facility] Total Protein 4.4(L) 6.3 - 7.9 g/dL 01/10/2025 10:13 AM [facility] Albumin, Plasma 2.8(L) 3.5 - 5.2 g/dL 01/10/2025 10:13 AM [facility] AST, Plasma 39 10 - 50 U/L 01/10/2025 10:13 AM [facility] ALT, Plasma 111(H) 10 - 50 U/L 01/10/2025 10:13 AM [facility] Alkaline Phosphatase, Plasma 125(H) 40 - 115 U/L 01/10/2025 10:13 AM [facility] Total Bilirubin, Plasma 6.1(H) 0.2 - 1.1 mg/dL 01/10/2025 10:13 AM [facility] eGFRcr 64.3 mL/min/1.7 3m*2 01/10/2025 10:13 AM [facility] Comment:Reported eGFRcr in m L/min/1.73m2 is based the CKD-EPI 2020 equation that does not use a race coefficient. Blood Venous blood specimen / Unknown Venipuncture / Unknown 01/10/2025 9:38 AM EST 01/10/2025 9:42 AM EST us Jude Peters MD LAB BLOOD ORDERABL ES Final Result Performing Organization Address City/[facility]/ZIP Co de Phone Number [facility] [address] [place] [address] * POCT glucose meter (01/10/2025 7:30 AM EST) POCT Glucose 99 74 - 99 mg/dL 01/10/2025 7:32 AM EST [facility] Comment:Accuracy of a glucos e result obtained from a capillary whole blood specimen relies upon adequate, non-compromised capillary blood flow. If the capillary glucose result is not consistent with the patient's clinical signs and symptoms, glucose testing should be repeated with either an arterial or venous sample on the glucometer or sent to the main labortory for testing. Comment 01/10/2025 7:32 AM EST [facility] Shearing Machine Operator ID Gaby Alfaro 01/10/2025 7:32 AM EST [facility] Device ID [id number] 01/10/2025 7:32 AM EST [facility] Specimen Type POC Capillary 01/10/2025 7:32 AM EST [facility] Blood Capillary blood specimen / Unknown 01/10/2025 7:30 AM EST 01/10/2025 7:32 AM EST us Maciel Olson MD LAB POINT OF CARE TE ST DOCKED DEVICE UNSOLICITED RESULTS Final Result Performing Organization Address City/[facility]/ZIP Co de Phone Number [facility] [address] [place] [address] * (ABNORMAL) POCT glucose meter (01/10/2025 6:14 AM EST) POCT Glucose 103(H) 74 - 99 mg/dL 01/10/2025 6:15 AM EST [facility] Comment:Accuracy of a glucos e result obtained from a capillary whole blood specimen relies upon adequate, non-compromised capillary blood flow. If the capillary glucose result is not consistent with the patient's clinical signs and symptoms, glucose testing should be repeated with either an arterial or venous sample on the glucometer or sent to the main labortory for testing. Comment 01/10/2025 6:15 AM EST [facility] Shearing Machine Operator ID Anay Rodriguez 01/10/2025 6:15 AM EST [facility] Device ID [id number] 01/10/2025 6:15 AM EST [facility] Specimen Type POC Capillary 01/10/2025 6:15 AM EST [facility] Blood Capillary blood specimen / Unknown 01/10/2025 6:14 AM EST 01/10/2025 6:15 AM EST us Maciel Olson MD LAB POINT OF CARE TE ST DOCKED DEVICE UNSOLICITED RESULTS Final Result Performing Organization Address City/[facility] Co de Phone Number [facility]ARE LAB [address] [place] [address] * POCT glucose meter (01/10/2025 5:23 AM EST) [facility] POCT Glucose 83 74 - 99 mg/dL 01/10/2025 5:25 AM EST [facility] Comment:Accuracy of a glucos e result obtained from a capillary whole blood specimen relies upon adequate, non-compromised capillary blood flow. If the capillary glucose result is not consistent with the patient's clinical signs and symptoms, glucose testing should be repeated with either an arterial or venous sample on the glucometer or sent to the main labortory for testing. Comment 01/10/2025 5:25 AM EST [facility] Shearing Machine Operator ID Anay Rodriguez 01/10/2025 5:25 AM EST [facility] Device ID [id number] 01/10/2025 5:25 AM EST [facility] Specimen Type POC Capillary 01/10/2025 5:25 AM EST [facility] Blood Capillary blood specimen / Unknown 01/10/2025 5:23 AM EST 01/10/2025 5:25 AM EST us Maciel Olson MD LAB POINT OF CARE TE ST DOCKED DEVICE UNSOLICITED RESULTS Final Result [facility] [address] [place] [address] * Phosphorus (01/10/2025 5:13 AM EST) Phosphorus, Plasma 3.8 2.5 - 4.5 mg/dL 01/10/2025 5:49 AM EST [facility] Blood Venous blood specimen / Unknown Venipuncture / Unknown 01/10/2025 5:13 AM EST 01/10/2025 5:20 AM EST us Maciel Olson MD LAB BLOOD ORDERABLES Final Resul t Performing Organization Address City/[facility]/ZIP Co de Phone Number [facility] [address] [place] [address] * (ABNORMAL) Magnesium (01/10/2025 5:13 AM EST) Magnesium, Plasma 1.5(L) 1.9 - 2.4 mg/dL 01/10/2025 5:49 AM EST [facility] Blood Venous blood specimen / Unknown Venipuncture / Unknown 01/10/2025 5:13 AM EST 01/10/2025 5:20 AM EST us Maciel Olson MD LAB BLOOD ORDERABLES Final Resul t Performing Organization Address City/[facility]/ZIP Co de Phone Number [facility] [address] [place] [address] * (ABNORMAL) Comprehensive metabolic panel (01/10/2025 5:13 AM EST) Glucose, Plasma 79 74 - 99 mg/dL 01/10/2025 5:49 AM EST [facility] BUN, Plasma 44(H) 7 - 21 mg/dL 01/10/2025 5:49 AM EST [facility] Creatinine, Plasma 1.44(H) 0.70 - 1.20 mg/dL 01/10/2025 5:49 AM EST [facility] BUN/Creatinine Ratio 31 01/10/2025 5:49 AM EST [facility] Sodium, Plasma 136 136 - 145 mmol/L 01/10/2025 5:49 AM EST [facility] Potassium, Plasma 3.7 3.6 - 4.9 mmol/L 01/10/2025 5:49 AM EST [facility] Chloride, Plasma 101 97 - 107 mmol/L 01/10/2025 5:49 AM EST [facility] CO2, Plasma 23 22 - 29 mmol/L 01/10/2025 5:49 AM EST [facility] Anion Gap 12 6 - 16 mmol/L 01/10/2025 5:49 AM EST [facility] Total Calcium, Plasma 8.3(L) 8.9 - 10.2 mg/dL 01/10/2025 5:49 AM EST [facility] Total Protein 4.8(L) 6.3 - 7.9 g/dL 01/10/2025 5:49 AM EST [facility] Albumin, Plasma 3.1(L) 3.5 - 5.2 g/dL 01/10/2025 5:49 AM EST [facility] AST, Plasma 49 10 - 50 U/L 01/10/2025 5:49 AM EST [facility] ALT, Plasma 126(H) 10 - 50 U/L 01/10/2025 5:49 AM EST [facility] Alkaline Phosphatase, Plasma 127(H) 40 - 115 U/L 01/10/2025 5:49 AM EST [facility] Total Bilirubin, Plasma 5.2(H) 0.2 - 1.1 mg/dL 01/10/2025 5:49 AM EST [facility] eGFRcr 61.1 mL/min/1.7 3m*2 01/10/2025 5:49 AM EST [facility] Comment:Reported eGFRcr in m L/min/1.73m2 is based the CKD-EPI 2020 equation that does not use a race coefficient. Blood Venous blood specimen / Unknown Venipuncture / Unknown 01/10/2025 5:13 AM EST 01/10/2025 5:20 AM EST us Maciel Olson MD LAB BLOOD ORDERABLES Final Resul t [facility] [address] [place] [address] * (ABNORMAL) CBC W/O Differential (01/10/2025 5:13 AM EST) WBC Count 6.97 3.70 - 10.30 10*3/uL LAB HEMATOLOGY METHOD 01/10/2025 5:29 AM EST [facility] RBC Count 3.03(L) 4.60 - 6.10 10*6/uL LAB HEMATOLOGY METHOD 01/10/2025 5:29 AM EST [facility] HGB 9.4(L) 13.7 - 17.5 g/dL LAB HEMATOLOGY METHOD 01/10/2025 5:29 AM EST [facility] HCT 28.1(L) 40.0 - 51.0 % LAB HEMATOLOGY METHOD 01/10/2025 5:29 AM EST [facility] Platelet Count 44(L) 155 - 369 10*3/uL LAB HEMATOLOGY METHOD 01/10/2025 5:29 AM EST [facility] MCV 93 79 - 98 fL LAB HEMATOLOGY METHOD 01/10/2025 5:29 AM EST [facility] MCH 31.0 26.0 - 32.0 pg LAB HEMATOLOGY METHOD 01/10/2025 5:29 AM EST [facility] MCHC 33.5 30.7 - 35.5 g/dL LAB HEMATOLOGY METHOD 01/10/2025 5:29 AM EST [facility] RDW 21.7(H) 11.5 - 14.5 % LAB HEMATOLOGY METHOD 01/10/2025 5:29 AM EST [facility] MPV 11.5 8.8 - 12.5 fL LAB HEMATOLOGY METHOD 01/10/2025 5:29 AM EST [facility] nRBC 0.0 <=0.0 per 100 WBCs LAB HEMATOLOGY METHOD 01/10/2025 5:29 AM EST [facility] Blood Venous blood specimen / Unknown Venipuncture / Unknown 01/10/2025 5:13 AM EST 01/10/2025 5:20 AM EST us Maciel Olson MD LAB BLOOD ORDERABLES Final Resul t [facility] [address] [place] [address] * (ABNORMAL) Prothrombin Time/INR (01/10/2025 5:13 AM EST) Prothrombin Time 16.0(H) 12.0 - 14.3 sec LAB COAGULATION METHOD 01/10/2025 5:35 AM EST [facility] INR 1.3(H) 0.9 - 1.1 LAB COAGULATION METHOD 01/10/2025 5:35 AM EST [facility] Blood Venous blood specimen / Unknown Venipuncture / Unknown 01/10/2025 5:13 AM EST 01/10/2025 5:20 AM EST Narrative [facility] - 01/10/2025 5:35 AM EST OPTIMAL INR RANGES FOR PATIENT ON ORAL ANTICOAGULANT THERAPY Prevention of venous thromboembolism INR 2.0 to 3.0 In patients with heart disease: Atrial fibrillation INR 2.0 to 3.0 Valvular heart disease INR 2.0 to 3.0 Tissue heart valves INR 2.0 to 3.0 Mechanical prosthetic valves INR 2.5 to 3.5 Prevention of recurrent OR INR 2.5 to 3.5 us Maciel Olson MD LAB BLOOD ORDERABLES Final Resul t [facility] [address] [place] [address] * (ABNORMAL) Tacrolimus (01/10/2025 5:13 AM EST) Tacrolimus 3.4(L) 4.0 - 17.0 ng/mL 01/10/2025 11:55 AM EST [facility] Comment: Tacrolimus therapeutic range: Initial (<3 mo.) Maintenance Kidney 8-13 ng/mL 4-8 ng/mL Liver 8-13 ng/mL 4-8 ng/mL Heart 8-15 ng/mL 7-13 ng/mL Lung;Heart/Lung 8-17 ng/mL 8-13 ng/mL Blood Venous blood specimen / Unknown Venipuncture / Unknown 01/10/2025 5:13 AM EST 01/10/2025 5:19 AM EST Narrative [facility] - 01/10/2025 11:55 AM EST Test performed by LC-MS/MS at the [facility]. This test was developed and its performance characteristics determined by [facility]. It has not been cleared or approved by the FDA. The laboratory is regulated under CLIA as qualified to perform high-complexity testing. This test is used for clinical purposes. Test performed by LC-MS/MS at the [facility]. This test was developed and its performance characteristics determined by [facility]. It has not been cleared or approved by the FDA. The laboratory is regulated under CLIA as qualified to perform high-complexity testing. This test is used for clinical purposes. us Maciel Olson MD LAB BLOOD ORDERABLES Final Resul t Performing Organization Address City/[facility]/[place] [address] * POCT glucose meter (01/10/2025 12:35 AM EST) [facility] POCT Glucose 93 74 - 99 mg/dL 01/10/2025 12:37 AM EST [facility] Comment:Accuracy of a glucos e result obtained from a capillary whole blood specimen relies upon adequate, non-compromised capillary blood flow. If the capillary glucose result is not consistent with the patient's clinical signs and symptoms, glucose testing should be repeated with either an arterial or venous sample on the glucometer or sent to the main labortory for testing. Comment 01/10/2025 12:37 AM EST [facility] Shearing Machine Operator ID Michael, Ada 01/10/2025 12:37 AM EST [facility] Device ID [id number] 01/10/2025 12:37 AM EST [facility] Specimen Type POC Capillary 01/10/2025 12:37 AM EST [facility] Blood Capillary blood specimen / Unknown 01/10/2025 12:35 AM EST 01/10/2025 12:37 AM EST us Maciel Olson MD LAB POINT OF CARE TE ST DOCKED DEVICE UNSOLICITED RESULTS Final Result Performing Organization Address City/[facility]/ZIP Co de Phone Number [facility] [address] [place] [address] * POCT glucose meter (01/10/2025 12:05 AM EST) [facility] POCT Glucose 87 74 - 99 mg/dL 01/10/2025 12:06 AM EST [facility] Comment:Accuracy of a glucos e result obtained from a capillary whole blood specimen relies upon adequate, non-compromised capillary blood flow. If the capillary glucose result is not consistent with the patient's clinical signs and symptoms, glucose testing should be repeated with either an arterial or venous sample on the glucometer or sent to the main labortory for testing. Comment 01/10/2025 12:06 AM EST [facility] Shearing Machine Operator ID Michael, Anay 01/10/2025 12:06 AM EST [facility] Device ID [id number] 01/10/2025 12:06 AM EST [facility] Specimen Type POC Capillary 01/10/2025 12:06 AM EST [facility] Blood Capillary blood specimen / Unknown 01/10/2025 12:05 AM EST 01/10/2025 12:06 AM EST Maciel Olson MD LAB POINT OF CARE TE ST DOCKED DEVICE UNSOLICITED RESULTS Final Result Performing Organization Address City/State/[facility] Co de Phone Number [facility] [address] [place] [address] * (ABNORMAL) POCT glucose meter (01/09/2025 7:52 PM EST) [facility] POCT Glucose 111(H) 74 - 99 mg/dL 01/09/2025 7:53 PM EST [facility] Comment:Accuracy of a glucos e result obtained from a capillary whole blood specimen relies upon adequate, non-compromised capillary blood flow. If the capillary glucose result is not consistent with the patient's clinical signs and symptoms, glucose testing should be repeated with either an arterial or venous sample on the glucometer or sent to the main labortory for testing. Comment 01/09/2025 7:53 PM EST [facility] Shearing Machine Operator ID Shaina Haines 01/09/2025 7:53 PM EST [facility] Device ID [id number] 01/09/2025 7:53 PM EST [facility] Specimen Type POC Capillary 01/09/2025 7:53 PM EST [facility] Blood Capillary blood specimen / Unknown 01/09/2025 7:52 PM EST 01/09/2025 7:53 PM EST Maciel Olson MD LAB POINT OF CARE TE ST DOCKED DEVICE UNSOLICITED RESULTS Final Result Performing Organization Address City/[facility] Co de Phone Number [facility] [address] [place] [address] * POCT glucose meter (01/09/2025 5:02 PM EST) POCT Glucose 99 74 - 99 mg/dL 01/09/2025 5:03 PM EST [facility] Comment:Accuracy of a glucos e result obtained from a capillary whole blood specimen relies upon adequate, non-compromised capillary blood flow. If the capillary glucose result is not consistent with the patient's clinical signs and symptoms, glucose testing should be repeated with either an arterial or venous sample on the glucometer or sent to the main labortory for testing. Comment 01/09/2025 5:03 PM EST [facility] Shearing Machine Operator ID Dominic Canchola 01/09/2025 5:03 PM EST [facility] Device ID [id number] 01/09/2025 5:03 PM EST [facility] Specimen Type POC Capillary 01/09/2025 5:03 PM EST [facility] Blood Capillary blood specimen / Unknown 01/09/2025 5:02 PM EST 01/09/2025 5:03 PM EST Maciel Olson MD LAB POINT OF CARE TE ST DOCKED DEVICE UNSOLICITED RESULTS Final Result Performing Organization Address City/[facility] Co de Phone Number [facility] [address] [place] [address] * (ABNORMAL) POCT glucose meter (01/09/2025 11:23 AM EST) POCT Glucose 152(H) 74 - 99 mg/dL 01/09/2025 11:25 AM EST [facility] Comment:Accuracy of a glucos e result obtained from a capillary whole blood specimen relies upon adequate, non-compromised capillary blood flow. If the capillary glucose result is not consistent with the patient's clinical signs and symptoms, glucose testing should be repeated with either an arterial or venous sample on the glucometer or sent to the main labortory for testing. Comment 01/09/2025 11:25 AM EST [facility] Shearing Machine Operator ID Dominic Canchola 01/09/2025 11:25 AM EST [facility] Device ID [id number] 01/09/2025 11:25 AM EST [facility] Specimen Type POC Capillary 01/09/2025 11:25 AM EST [facility] Blood Capillary blood specimen / Unknown 01/09/2025 11:23 AM EST 01/09/2025 11:25 AM EST us Maciel Olson MD LAB POINT OF CARE TE ST DOCKED DEVICE UNSOLICITED RESULTS Final Result Performing Organization Address City/[facility] Co de Phone Number [facility] [address] [place] [address] * (ABNORMAL) POCT glucose meter (01/09/2025 8:00 AM EST) POCT Glucose 125(H) 74 - 99 mg/dL 01/09/2025 8:02 AM EST [facility] Comment:Accuracy of a glucos e result obtained from a capillary whole blood specimen relies upon adequate, non-compromised capillary blood flow. If the capillary glucose result is not consistent with the patient's clinical signs and symptoms, glucose testing should be repeated with either an arterial or venous sample on the glucometer or sent to the main labortory for testing. Comment 01/09/2025 8:02 AM EST [facility] Shearing Machine Operator ID Dominic Canchola 01/09/2025 8:02 AM EST [facility] Device ID [id number] 01/09/2025 8:02 AM EST [facility] Specimen Type POC Capillary 01/09/2025 8:02 AM EST [facility] Blood Capillary blood specimen / Unknown 01/09/2025 8:00 AM EST 01/09/2025 8:02 AM EST us Maciel Olson MD LAB POINT OF CARE TE ST DOCKED DEVICE UNSOLICITED RESULTS Final Result Performing Organization Address City/[facility]/ZIP Co de Phone Number [facility] [address] [place] [address] * (ABNORMAL) POCT glucose meter (01/09/2025 5:38 AM EST) POCT Glucose 116(H) 74 - 99 mg/dL 01/09/2025 5:39 AM EST [facility] Comment:Accuracy of a glucos e result obtained from a capillary whole blood specimen relies upon adequate, non-compromised capillary blood flow. If the capillary glucose result is not consistent with the patient's clinical signs and symptoms, glucose testing should be repeated with either an arterial or venous sample on the glucometer or sent to the main labortory for testing. Comment 01/09/2025 5:39 AM EST [facility] Shearing Machine Operator ID Elver Medel 01/09/2025 5:39 AM EST [facility] Device ID [id number] 01/09/2025 5:39 AM EST [facility] Specimen Type POC Capillary 01/09/2025 5:39 AM EST [facility] Blood Capillary blood specimen / Unknown 01/09/2025 5:38 AM EST 01/09/2025 5:39 AM EST Maciel Olson MD LAB POINT OF CARE TE ST DOCKED DEVICE UNSOLICITED RESULTS Final Result [facility] [address] [place] [address] * Phosphorus (01/09/2025 5:13 AM EST) [facility] Phosphorus, Plasma 3.0 2.5 - 4.5 mg/dL 01/09/2025 6:59 AM EST [facility] Blood Venous blood specimen / Unknown 01/09/2025 5:13 AM EST 01/09/2025 5:13 AM EST us Maciel Olson MD LAB BLOOD ORDERABLES Final Resul t [facility] [address] [place] [address] * Magnesium (01/09/2025 5:13 AM EST) [facility] Magnesium, Plasma 1.9 1.9 - 2.4 mg/dL 01/09/2025 6:59 AM EST [facility] Blood Venous blood specimen / Unknown 01/09/2025 5:13 AM EST 01/09/2025 5:13 AM EST us Maciel Olson MD LAB BLOOD ORDERABLES Final Resul t [facility] [address] [place] [address] * (ABNORMAL) Comprehensive metabolic panel (01/09/2025 5:13 AM EST) Glucose, Plasma 96 74 - 99 mg/dL 01/09/2025 6:59 AM EST [facility] BUN, Plasma 55(H) 7 - 21 mg/dL 01/09/2025 6:59 AM EST [facility] Creatinine, Plasma 1.67(H) 0.70 - 1.20 mg/dL 01/09/2025 6:59 AM EST [facility] BUN/Creatinine Ratio 33 01/09/2025 6:59 AM EST [facility] Sodium, Plasma 135(L) 136 - 145 mmol/L 01/09/2025 6:59 AM EST [facility] Potassium, Plasma 4.1 3.6 - 4.9 mmol/L 01/09/2025 6:59 AM EST [facility] Chloride, Plasma 107 97 - 107 mmol/L 01/09/2025 6:59 AM EST [facility] CO2, Plasma 20(L) 22 - 29 mmol/L 01/09/2025 6:59 AM EST [facility] Anion Gap 8 6 - 16 mmol/L 01/09/2025 6:59 AM EST [facility] Total Calcium, Plasma 8.2(L) 8.9 - 10.2 mg/dL 01/09/2025 6:59 AM EST [facility] Total Protein 4.6(L) 6.3 - 7.9 g/dL 01/09/2025 6:59 AM EST [facility] Albumin, Plasma 2.9(L) 3.5 - 5.2 g/dL 01/09/2025 6:59 AM EST [facility] AST, Plasma 45 10 - 50 U/L 01/09/2025 6:59 AM EST [facility] Comment:Hemolyzed, result ma y be falsely increased. ALT, Plasma 112(H) 10 - 50 U/L 01/09/2025 6:59 AM EST [facility] Alkaline Phosphatase, Plasma 68 40 - 115 U/L 01/09/2025 6:59 AM EST [facility] Total Bilirubin, Plasma 2.8(H) 0.2 - 1.1 mg/dL 01/09/2025 6:59 AM EST [facility] eGFRcr 51.1 mL/min/1.7 3m*2 01/09/2025 6:59 AM EST [facility] Comment:Reported eGFRcr in m L/min/1.73m2 is based the CKD-EPI 2020 equation that does not use a race coefficient. Blood Venous blood specimen / Unknown 01/09/2025 5:13 AM EST 01/09/2025 5:13 AM EST us Maciel Olson MD LAB BLOOD ORDERABLES Final Resul t Performing Organization Address City/State/[facility] Co de Phone Number [facility] [address] [place] [address] * (ABNORMAL) CBC W/O Differential (01/09/2025 5:13 AM EST) WBC Count 5.04 3.70 - 10.30 10*3/uL LAB HEMATOLOGY METHOD 01/09/2025 7:00 AM EST [facility] RBC Count 2.75(L) 4.60 - 6.10 10*6/uL LAB HEMATOLOGY METHOD 01/09/2025 7:00 AM EST [facility] HGB 8.6(L) 13.7 - 17.5 g/dL LAB HEMATOLOGY METHOD 01/09/2025 7:00 AM EST [facility] HCT 25.7(L) 40.0 - 51.0 % LAB HEMATOLOGY METHOD 01/09/2025 7:00 AM EST [facility] Platelet Count 44(L) 155 - 369 10*3/uL LAB HEMATOLOGY METHOD 01/09/2025 7:00 AM EST [facility] MCV 94 79 - 98 fL LAB HEMATOLOGY METHOD 01/09/2025 7:00 AM EST [facility] MCH 31.3 26.0 - 32.0 pg LAB HEMATOLOGY METHOD 01/09/2025 7:00 AM EST [facility] MCHC 33.5 30.7 - 35.5 g/dL LAB HEMATOLOGY METHOD 01/09/2025 7:00 AM EST [facility] RDW 21.1(H) 11.5 - 14.5 % LAB HEMATOLOGY METHOD 01/09/2025 7:00 AM EST [facility] MPV 10.8 8.8 - 12.5 fL LAB HEMATOLOGY METHOD 01/09/2025 7:00 AM EST [facility] nRBC 0.0 <=0.0 per 100 WBCs LAB HEMATOLOGY METHOD 01/09/2025 7:00 AM EST [facility] Blood Venous blood specimen / Unknown 01/09/2025 5:13 AM EST 01/09/2025 5:13 AM EST us Maciel Olson MD LAB BLOOD ORDERABLES Final Resul t Performing Organization Address City/[facility]/ZIP Co de Phone Number [facility] [address] [place] [address] * Lavender Top (01/09/2025 5:13 AM EST) Extra Hold for add-ons 01/09/2025 8:01 AM EST [facility] Comment:Auto resulted. Blood Venous blood specimen / Unknown 01/09/2025 5:13 AM EST 01/09/2025 5:13 AM EST us Maciel Olson MD LAB BLOOD ORDERABLES Final Resul t [facility] [address] [place] [address] * Light Green Top (01/09/2025 5:13 AM EST) Extra Hold for add-ons 01/09/2025 8:01 AM EST [facility] Comment:Auto resulted. Blood Venous blood specimen / Unknown 01/09/2025 5:13 AM EST 01/09/2025 5:13 AM EST us Maciel Olson MD LAB BLOOD ORDERABLES Final Resul t Performing Organization Address City/[facility]/ZIP Co de Phone Number [facility] [address] [place] [address] * (ABNORMAL) Prothrombin Time/INR (01/09/2025 5:07 AM EST) Prothrombin Time 16.0(H) 12.0 - 14.3 sec LAB COAGULATION METHOD 01/09/2025 5:50 AM EST [facility] INR 1.2(H) 0.9 - 1.1 LAB COAGULATION METHOD 01/09/2025 5:50 AM EST [facility] Blood Venous blood specimen / Unknown Venipuncture / Unknown 01/09/2025 5:07 AM EST 01/09/2025 5:12 AM EST Narrative [facility] - 01/09/2025 5:50 AM EST OPTIMAL INR RANGES FOR PATIENT ON ORAL ANTICOAGULANT THERAPY Prevention of venous thromboembolism INR 2.0 to 3.0 In patients with heart disease: Atrial fibrillation INR 2.0 to 3.0 Valvular heart disease INR 2.0 to 3.0 Tissue heart valves INR 2.0 to 3.0 Mechanical prosthetic valves INR 2.5 to 3.5 Prevention of recurrent OR INR 2.5 to 3.5 Maciel Olson MD LAB BLOOD ORDERABLES Final Resul t Performing Organization Address [facility] Co de Phone Number [facility] [address] [place] [address] * Tacrolimus (01/09/2025 5:07 AM EST) Tacrolimus 4.0 4.0 - 17.0 ng/mL 01/09/2025 1:21 PM EST [facility] Comment: Tacrolimus therapeutic range: Initial (<3 mo.) Maintenance Kidney 8-13 ng/mL 4-8 ng/mL Liver 8-13 ng/mL 4-8 ng/mL Heart 8-15 ng/mL 7-13 ng/mL Lung;Heart/Lung 8-17 ng/mL 8-13 ng/mL Blood Venous blood specimen / Unknown Venipuncture / Unknown 01/09/2025 5:07 AM EST 01/09/2025 5:12 AM EST Narrative [facility] - 01/09/2025 1:21 PM EST Test performed by LC-MS/MS at the [facility]. This test was developed and its performance characteristics determined by [facility]. It has not been cleared or approved by the FDA. The laboratory is regulated under CLIA as qualified to perform high-complexity testing. This test is used for clinical purposes. Test performed by LC-MS/MS at the [facility]. This test was developed and its performance characteristics determined by [facility]. It has not been cleared or approved by the FDA. The laboratory is regulated under CLIA as qualified to perform high-complexity testing. This test is used for clinical purposes. Maciel Olson MD LAB BLOOD ORDERABLES Final Resul t [facility] [address] [place] [address] * (ABNORMAL) POCT glucose meter (01/08/2025 11:28 PM EST) POCT Glucose 111(H) 74 - 99 mg/dL 01/08/2025 11:30 PM EST [facility] Comment:Accuracy of a glucos e result obtained from a capillary whole blood specimen relies upon adequate, non-compromised capillary blood flow. If the capillary glucose result is not consistent with the patient's clinical signs and symptoms, glucose testing should be repeated with either an arterial or venous sample on the glucometer or sent to the main labortory for testing. Comment 01/08/2025 11:30 PM EST [facility] Shearing Machine Operator ID Elver Medel 01/08/2025 11:30 PM EST [facility] Device ID [id number] 01/08/2025 11:30 PM EST [facility] Specimen Type POC Capillary 01/08/2025 11:30 PM EST [facility] Blood Capillary blood specimen / Unknown 01/08/2025 11:28 PM EST 01/08/2025 11:30 PM EST Maciel Olson MD LAB POINT OF CARE TE ST DOCKED DEVICE UNSOLICITED RESULTS Final Result [facility] [address] [id number] * (ABNORMAL) POCT glucose meter (01/08/2025 8:09 PM EST) Pathologist [facility] POCT Glucose 115(H) 74 - 99 mg/dL 01/08/2025 8:11 PM EST [facility] Comment:Accuracy of a glucos e result obtained from a capillary whole blood specimen relies upon adequate, non-compromised capillary blood flow. If the capillary glucose result is not consistent with the patient's clinical signs and symptoms, glucose testing should be repeated with either an arterial or venous sample on the glucometer or sent to the main labortory for testing. Comment 01/08/2025 8:11 PM EST [facility] Shearing Machine Operator ID Elver Medel 01/08/2025 8:11 PM EST [facility] Device ID [id number] 01/08/2025 8:11 PM EST [facility] Specimen Type POC Capillary 01/08/2025 8:11 PM EST [facility] Blood Capillary blood specimen / Unknown 01/08/2025 8:09 PM EST 01/08/2025 8:11 PM EST Mcaiel Olson MD LAB POINT OF CARE TE ST DOCKED DEVICE UNSOLICITED RESULTS Final Result [facility] [address] [place] [address] * (ABNORMAL) POCT glucose meter (01/08/2025 5:11 PM EST) [facility] POCT Glucose 118(H) 74 - 99 mg/dL 01/08/2025 5:13 PM EST [facility] Comment:Accuracy of a glucos e result obtained from a capillary whole blood specimen relies upon adequate, non-compromised capillary blood flow. If the capillary glucose result is not consistent with the patient's clinical signs and symptoms, glucose testing should be repeated with either an arterial or venous sample on the glucometer or sent to the main labortory for testing. Comment 01/08/2025 5:13 PM EST [facility] Shearing Machine Operator ID BrandoSilasIndia Carroll 01/08/2025 5:13 PM EST [facility] Device ID [id number] 01/08/2025 5:13 PM EST [facility] Specimen Type POC Capillary 01/08/2025 5:13 PM EST [facility] Blood Capillary blood specimen / Unknown 01/08/2025 5:11 PM EST 01/08/2025 5:13 PM EST us Maciel Olson MD LAB POINT OF CARE TE ST DOCKED DEVICE UNSOLICITED RESULTS Final Result Performing Organization Address City/State/[facility] Phone Number [facility] [address] [place] [id number] * XR Chest 1 View (01/08/2025 12:15 PM EST) Anatomical Region Laterality Modality Chest Digital Radiogra phy Impressions 01/08/2025 1:37 PM EST No significant interval change. CRITICAL RESULT: No. COMMUNICATION: Per this written report. Drafted by Hermila Tapia MD on 01/08/2025 1:36 PM Final report signed by Hermila Tapia MD on 01/08/2025 1:37 PM Narrative 01/08/2025 1:37 PM EST CLINICAL INDICATION: sob TECHNIQUE: Single AP view of chest. COMPARISON: 2 days prior FINDINGS: Interval removal of the right central venous catheter. The cardiomediastinal contours unchanged. No pneumothorax. No sizable pleural effusion. No lung consolidation or airspace disease. Low lung volume. Procedure Note Herimla Tapia MD - 01/08/2025 CLINICAL INDICATION: sob TECHNIQUE: Single AP view of chest. COMPARISON: 2 days prior FINDINGS: Interval removal of the right central venous catheter. Thecardiomediastinal contours unchanged. No pneumothorax. No sizable pleuraleffusion. No lung consolidation or airspace disease. Low lung volume. IMPRESSION: No significant interval change. CRITICAL RESULT: No. COMMUNICATION: Per this written report. Drafted by Hermila Tapia MD on 01/08/2025 1:36 PM Final report signed by Hermila Tapia MD on 01/08/2025 1:37 PM us Maciel Olson MD IMG XR PROCEDURES Final Result * (ABNORMAL) POCT glucose meter (01/08/2025 11:30 AM EST) [facility] POCT Glucose 140(H) 74 - 99 mg/dL 01/08/2025 11:32 AM EST [facility] Comment:Accuracy of a glucos e result obtained from a capillary whole blood specimen relies upon adequate, non-compromised capillary blood flow. If the capillary glucose result is not consistent with the patient's clinical signs and symptoms, glucose testing should be repeated with either an arterial or venous sample on the glucometer or sent to the main labortory for testing. Comment 01/08/2025 11:32 AM EST [facility] Shearing Machine Operator ID India Schultz 01/08/2025 11:32 AM EST [facility] Device ID [id number] 01/08/2025 11:32 AM EST [facility] Specimen Type POC Capillary 01/08/2025 11:32 AM EST [facility] Blood Capillary blood specimen / Unknown 01/08/2025 11:30 AM EST 01/08/2025 11:32 AM EST us Maciel Olson MD LAB POINT OF CARE TE ST DOCKED DEVICE UNSOLICITED RESULTS Final Result Performing Organization Address City/[facility]/ZIP Co de Phone Number [facility] [address] [place] [address] * Phosphorus, Plasma (01/08/2025 8:21 AM EST) [facility] Phosphorus, Plasma 3.1 2.5 - 4.5 mg/dL 01/08/2025 8:56 AM EST [facility] Blood Venous blood specimen / Unknown Venipuncture / Unknown 01/08/2025 8:21 AM EST 01/08/2025 8:27 AM EST us Maciel Olson MD LAB BLOOD ORDERABLES Final Resul t [facility] [address] [place] [address] * (ABNORMAL) CBC and Differential (01/08/2025 8:21 AM EST) [facility] WBC Count 5.64 3.70 - 10.30 10*3/uL LAB HEMATOLOGY METHOD 01/08/2025 8:34 AM EST [facility] RBC Count 2.85(L) 4.60 - 6.10 10*6/uL LAB HEMATOLOGY METHOD 01/08/2025 8:34 AM EST [facility] HGB 8.8(L) 13.7 - 17.5 g/dL LAB HEMATOLOGY METHOD 01/08/2025 8:34 AM EST [facility] HCT 25.8(L) 40.0 - 51.0 % LAB HEMATOLOGY METHOD 01/08/2025 8:34 AM EST [facility] Platelet Count 50(L) 155 - 369 10*3/uL LAB HEMATOLOGY METHOD 01/08/2025 8:34 AM EST [facility] MCV 91 79 - 98 fL LAB HEMATOLOGY METHOD 01/08/2025 8:34 AM EST [facility] MCH 30.9 26.0 - 32.0 pg LAB HEMATOLOGY METHOD 01/08/2025 8:34 AM EST [facility] MCHC 34.1 30.7 - 35.5 g/dL LAB HEMATOLOGY METHOD 01/08/2025 8:34 AM [facility] RDW 20.4(H) 11.5 - 14.5 % LAB HEMATOLOGY METHOD 01/08/2025 8:34 AM EST [facility] MPV 10.0 8.8 - 12.5 fL LAB HEMATOLOGY METHOD 01/08/2025 8:34 AM [facility] nRBC 0.0 <=0.0 per 100 WBCs LAB HEMATOLOGY METHOD 01/08/2025 8:34 AM EST [facility] Differential Type Automated LAB HEMATOLOGY METHOD 01/08/2025 8:34 AM [facility] Neutrophils % 79 % LAB HEMATOLOGY METHOD 01/08/2025 8:34 AM EST [facility] Lymphocytes % 5 % LAB HEMATOLOGY METHOD 01/08/2025 8:34 AM EST [facility] Monocytes % 15 % LAB HEMATOLOGY METHOD 01/08/2025 8:34 AM EST [facility] Eosinophils % 0 % LAB HEMATOLOGY METHOD 01/08/2025 8:34 AM EST [facility] Basophils % 0 % LAB HEMATOLOGY METHOD 01/08/2025 8:34 AM EST [facility] Immature Granulocytes % 1 % LAB HEMATOLOGY METHOD 01/08/2025 8:34 AM EST [facility] Neutrophils Absolute 4.50 1.60 - 6.10 10*3/uL LAB HEMATOLOGY METHOD 01/08/2025 8:34 AM EST [facility] Lymphocytes Absolute 0.28(L) 1.20 - 3.90 10*3/uL LAB HEMATOLOGY METHOD 01/08/2025 8:34 AM EST [facility] Monocytes Absolute 0.82 0.30 - 0.90 10*3/uL LAB HEMATOLOGY METHOD 01/08/2025 8:34 AM EST [facility] Eosinophils Absolute 0.01 0.00 - 0.50 10*3/uL LAB HEMATOLOGY METHOD 01/08/2025 8:34 AM EST [facility] Basophils Absolute 0.00 0.00 - 0.10 10*3/uL LAB HEMATOLOGY METHOD 01/08/2025 8:34 AM EST [facility] Immature Granulocytes Absolute 0.03 0.00 - 0.06 10*3/uL LAB HEMATOLOGY METHOD 01/08/2025 8:34 AM EST [facility] Blood Venous blood specimen / Unknown Venipuncture / Unknown 01/08/2025 8:21 AM EST 01/08/2025 8:27 AM EST Narrative [facility] - 01/08/2025 8:34 AM EST Therapeutic decision making should be based on absolute values, rather than percentages. us Maciel Olson MD LAB BLOOD ORDERABLES Final Resul t [facility] [address] [place] [address] * (ABNORMAL) Comprehensive metabolic panel (01/08/2025 8:21 AM EST) Glucose, Plasma 113(H) 74 - 99 mg/dL 01/08/2025 8:56 AM EST [facility] BUN, Plasma 65(H) 7 - 21 mg/dL 01/08/2025 8:56 AM EST [facility] Creatinine, Plasma 1.82(H) 0.70 - 1.20 mg/dL 01/08/2025 8:56 AM EST [facility] BUN/Creatinine Ratio 36 01/08/2025 8:56 AM EST [facility] Sodium, Plasma 136 136 - 145 mmol/L 01/08/2025 8:56 AM EST [facility] Potassium, Plasma 4.3 3.6 - 4.9 mmol/L 01/08/2025 8:56 AM EST [facility] Chloride, Plasma 107 97 - 107 mmol/L 01/08/2025 8:56 AM EST [facility] CO2, Plasma 19(L) 22 - 29 mmol/L 01/08/2025 8:56 AM EST [facility] Anion Gap 10 6 - 16 mmol/L 01/08/2025 8:56 AM EST [facility] Total Calcium, Plasma 8.2(L) 8.9 - 10.2 mg/dL 01/08/2025 8:56 AM EST [facility] Total Protein 4.8(L) 6.3 - 7.9 g/dL 01/08/2025 8:56 AM EST [facility] Albumin, Plasma 2.9(L) 3.5 - 5.2 g/dL 01/08/2025 8:56 AM EST [facility] AST, Plasma 44 10 - 50 U/L 01/08/2025 8:56 AM EST [facility] ALT, Plasma 104(H) 10 - 50 U/L 01/08/2025 8:56 AM EST [facility] Alkaline Phosphatase, Plasma 71 40 - 115 U/L 01/08/2025 8:56 AM EST [facility] Total Bilirubin, Plasma 2.9(H) 0.2 - 1.1 mg/dL 01/08/2025 8:56 AM EST [facility] eGFRcr 46.1 mL/min/1.7 3m*2 01/08/2025 8:56 AM EST [facility] Comment:Reported eGFRcr in m L/min/1.73m2 is based the CKD-EPI 2020 equation that does not use a race coefficient. Blood Venous blood specimen / Unknown Venipuncture / Unknown 01/08/2025 8:21 AM EST 01/08/2025 8:27 AM EST us Maciel Olson MD LAB BLOOD ORDERABLES Final Resul t [facility] [address] [place] [address] * Magnesium, Plasma (01/08/2025 8:21 AM EST) Magnesium, Plasma 2.3 1.9 - 2.4 mg/dL 01/08/2025 8:56 AM EST [facility] Blood Venous blood specimen / Unknown Venipuncture / Unknown 01/08/2025 8:21 AM EST 01/08/2025 8:27 AM EST us Maciel Olson MD LAB BLOOD ORDERABLES Final Resul t Performing Organization Address City/[facility]/ZIP Co de Phone Number [facility] [address] [place] [address] * (ABNORMAL) POCT glucose meter (01/08/2025 8:04 AM EST) Pathologist [facility] POCT Glucose 122(H) 74 - 99 mg/dL 01/08/2025 8:14 AM EST [facility] Comment:Accuracy of a glucos e result obtained from a capillary whole blood specimen relies upon adequate, non-compromised capillary blood flow. If the capillary glucose result is not consistent with the patient's clinical signs and symptoms, glucose testing should be repeated with either an arterial or venous sample on the glucometer or sent to the main labortory for testing. Comment 01/08/2025 8:14 AM EST [facility] Shearing Machine Operator ID India Schultz 01/08/2025 8:14 AM EST [facility] Device ID [id number] 01/08/2025 8:14 AM EST [facility] Specimen Type POC Capillary 01/08/2025 8:14 AM EST [facility] Blood Capillary blood specimen / Unknown 01/08/2025 8:04 AM EST 01/08/2025 8:14 AM EST us Maciel Olson MD LAB POINT OF CARE TE ST DOCKED DEVICE UNSOLICITED RESULTS Final Result [facility] [address] [place] [address] * (ABNORMAL) POCT glucose meter (01/08/2025 6:36 AM EST) [facility] POCT Glucose 125(H) 74 - 99 mg/dL 01/08/2025 6:41 AM EST [facility] Comment:Accuracy of a glucos e result obtained from a capillary whole blood specimen relies upon adequate, non-compromised capillary blood flow. If the capillary glucose result is not consistent with the patient's clinical signs and symptoms, glucose testing should be repeated with either an arterial or venous sample on the glucometer or sent to the main labortory for testing. Comment 01/08/2025 6:41 AM EST [facility] Shearing Machine Operator ID Zachery Villarreal 01/08/2025 6:41 AM EST [facility] Device ID [id number] 01/08/2025 6:41 AM EST [facility] Specimen Type POC Capillary 01/08/2025 6:41 AM EST [facility] Blood Capillary blood specimen / Unknown 01/08/2025 6:36 AM EST 01/08/2025 6:41 AM EST Maciel Olson MD LAB POINT OF CARE TE ST DOCKED DEVICE UNSOLICITED RESULTS Final Result [facility] [address] [place] [address] * Tacrolimus (01/08/2025 5:05 AM EST) [facility] Tacrolimus 5.8 4.0 - 17.0 ng/mL 01/08/2025 1:07 PM EST [facility] Comment: Tacrolimus therapeutic range: Initial (<3 mo.) Maintenance Kidney 8-13 ng/mL 4-8 ng/mL Liver 8-13 ng/mL 4-8 ng/mL Heart 8-15 ng/mL 7-13 ng/mL Lung;Heart/Lung 8-17 ng/mL 8-13 ng/mL Blood Venous blood specimen / Unknown Venipuncture / Unknown 01/08/2025 5:05 AM EST 01/08/2025 5:11 AM EST Narrative [facility] - 01/08/2025 1:07 PM EST Test performed by LC-MS/MS at the [facility]. This test was developed and its performance characteristics determined by [facility]. It has not been cleared or approved by the FDA. The laboratory is regulated under CLIA as qualified to perform high-complexity testing. This test is used for clinical purposes. Test performed by LC-MS/MS at the [facility]. This test was developed and its performance characteristics determined by [facility]. It has not been cleared or approved by the FDA. The laboratory is regulated under CLIA as qualified to perform high-complexity testing. This test is used for clinical purposes. Maciel Olson MD LAB BLOOD ORDERABLES Final Resul t Performing Organization Address City/[facility]/ZIP Co de Phone Number [facility] [address] [place] [address] * (ABNORMAL) Prothrombin Time/INR (01/08/2025 5:04 AM EST) Prothrombin Time 16.1(H) 12.0 - 14.3 sec LAB COAGULATION METHOD 01/08/2025 5:33 AM EST [facility] INR 1.3(H) 0.9 - 1.1 LAB COAGULATION METHOD 01/08/2025 5:33 AM EST [facility] Blood Venous blood specimen / Unknown Venipuncture / Unknown 01/08/2025 5:04 AM EST 01/08/2025 5:11 AM EST Narrative [facility] - 01/08/2025 5:33 AM EST OPTIMAL INR RANGES FOR PATIENT ON ORAL ANTICOAGULANT THERAPY Prevention of venous thromboembolism INR 2.0 to 3.0 In patients with heart disease: Atrial fibrillation INR 2.0 to 3.0 Valvular heart disease INR 2.0 to 3.0 Tissue heart valves INR 2.0 to 3.0 Mechanical prosthetic valves INR 2.5 to 3.5 Prevention of recurrent OR INR 2.5 to 3.5 Maciel Olson MD LAB BLOOD ORDERABLES Final Resul t [facility] [address] [place] [address] * Lavender Top (01/08/2025 4:56 AM EST) Extra Hold for add-ons 01/08/2025 8:01 AM EST [facility] Comment:Auto resulted. Blood Venous blood specimen / Unknown 01/08/2025 4:56 AM EST 01/08/2025 5:11 AM EST Maciel Olson MD LAB BLOOD ORDERABLES Final Resul t Performing Organization Address [facility] Co de Phone Number [facility] [address] [place] [address] * (ABNORMAL) POCT glucose meter (01/07/2025 11:52 PM EST) POCT Glucose 135(H) 74 - 99 mg/dL 01/08/2025 12:00 AM EST [facility] Comment:Accuracy of a glucos e result obtained from a capillary whole blood specimen relies upon adequate, non-compromised capillary blood flow. If the capillary glucose result is not consistent with the patient's clinical signs and symptoms, glucose testing should be repeated with either an arterial or venous sample on the glucometer or sent to the main labortory for testing. Comment 01/08/2025 12:00 AM EST [facility] Shearing Machine Operator ID Darryl Kinsey 025 12:00 AM EST [facility] Device ID [id number] 01/08/2025 12:00 AM EST [facility] Specimen Type POC Capillary 01/08/2025 12:00 AM EST [facility] Blood Capillary blood specimen / Unknown 01/07/2025 11:52 PM EST 01/08/2025 12:00 AM EST us Maciel Olson MD LAB POINT OF CARE TE ST DOCKED DEVICE UNSOLICITED RESULTS Final Result Performing Organization Address City/[facility] Co de Phone Number [facility] [address] [place] [address] * (ABNORMAL) POCT glucose meter (01/07/2025 8:57 PM EST) POCT Glucose 119(H) 74 - 99 mg/dL 01/07/2025 8:59 PM EST [facility] Comment:Accuracy of a glucos e result obtained from a capillary whole blood specimen relies upon adequate, non-compromised capillary blood flow. If the capillary glucose result is not consistent with the patient's clinical signs and symptoms, glucose testing should be repeated with either an arterial or venous sample on the glucometer or sent to the main labortory for testing. Comment 01/07/2025 8:59 PM EST [facility] Shearing Machine Operator ID Darryl Kinsey 025 8:59 PM EST [facility] Device ID [id number] 01/07/2025 8:59 PM EST [facility] Specimen Type POC Capillary 01/07/2025 8:59 PM EST [facility] Blood Capillary blood specimen / Unknown 01/07/2025 8:57 PM EST 01/07/2025 8:59 PM EST us Maciel Olson MD LAB POINT OF CARE TE ST DOCKED DEVICE UNSOLICITED RESULTS Final Result Performing Organization Address City/[facility] Co de Phone Number [facility] [address] [place] [address] * Phosphorus, Plasma (01/07/2025 5:54 PM EST) Phosphorus, Plasma 3.7 2.5 - 4.5 mg/dL 01/07/2025 6:33 PM EST [facility] Blood Venous blood specimen / Unknown Venipuncture / Unknown 01/07/2025 5:54 PM EST 01/07/2025 6:02 PM EST us Maciel Olson MD LAB BLOOD ORDERABLES Final Resul t Performing Organization Address City/[facility] Co de Phone Number [facility] [address] [place] [address] * Magnesium, Plasma (01/07/2025 5:54 PM EST) Magnesium, Plasma 2.4 1.9 - 2.4 mg/dL 01/07/2025 6:33 PM EST [facility] Blood Venous blood specimen / Unknown Venipuncture / Unknown 01/07/2025 5:54 PM EST 01/07/2025 6:02 PM EST us Maciel Olson MD LAB BLOOD ORDERABLES Final Resul t [facility] [address] [place] [address] * (ABNORMAL) Comprehensive metabolic panel (01/07/2025 5:54 PM EST) Glucose, Plasma 159(H) 74 - 99 mg/dL 01/07/2025 6:33 PM EST [facility] BUN, Plasma 67(H) 7 - 21 mg/dL 01/07/2025 6:33 PM EST [facility] Creatinine, Plasma 1.89(H) 0.70 - 1.20 mg/dL 01/07/2025 6:33 PM EST [facility] BUN/Creatinine Ratio 35 01/07/2025 6:33 PM EST [facility] Sodium, Plasma 132(L) 136 - 145 mmol/L 01/07/2025 6:33 PM EST [facility] Potassium, Plasma 5.0(H) 3.6 - 4.9 mmol/L 01/07/2025 6:33 PM EST [facility] Chloride, Plasma 104 97 - 107 mmol/L 01/07/2025 6:33 PM EST [facility] CO2, Plasma 17(L) 22 - 29 mmol/L 01/07/2025 6:33 PM EST [facility] Anion Gap 11 6 - 16 mmol/L 01/07/2025 6:33 PM EST [facility] Total Calcium, Plasma 8.1(L) 8.9 - 10.2 mg/dL 01/07/2025 6:33 PM EST [facility] Total Protein 4.9(L) 6.3 - 7.9 g/dL 01/07/2025 6:33 PM EST [facility] Albumin, Plasma 3.0(L) 3.5 - 5.2 g/dL 01/07/2025 6:33 PM EST [facility] AST, Plasma 47 10 - 50 U/L 01/07/2025 6:33 PM [facility] Comment:Hemolyzed, result ma y be falsely increased. ALT, Plasma 104(H) 10 - 50 U/L 01/07/2025 6:33 PM EST [facility] Alkaline Phosphatase, Plasma 78 40 - 115 U/L 01/07/2025 6:33 PM EST [facility] Total Bilirubin, Plasma 3.1(H) 0.2 - 1.1 mg/dL 01/07/2025 6:33 PM EST [facility] eGFRcr 44.1 mL/min/1.7 3m*2 01/07/2025 6:33 PM EST [facility] Comment:Reported eGFRcr in m L/min/1.73m2 is based the CKD-EPI 2020 equation that does not use a race coefficient. Blood Venous blood specimen / Unknown Venipuncture / Unknown 01/07/2025 5:54 PM EST 01/07/2025 6:02 PM EST us Maciel Olson MD LAB BLOOD ORDERABLES Final Resul t [facility] [address] [place] [address] * (ABNORMAL) CBC and Differential (01/07/2025 5:54 PM EST) WBC Count 3.86 3.70 - 10.30 10*3/uL LAB HEMATOLOGY METHOD 01/07/2025 6:16 PM EST [facility] RBC Count 2.81(L) 4.60 - 6.10 10*6/uL LAB HEMATOLOGY METHOD 01/07/2025 6:16 PM EST [facility] HGB 8.7(L) 13.7 - 17.5 g/dL LAB HEMATOLOGY METHOD 01/07/2025 6:16 PM EST [facility] HCT 25.8(L) 40.0 - 51.0 % LAB HEMATOLOGY METHOD 01/07/2025 6:16 PM EST [facility] Platelet Count 48(L) 155 - 369 10*3/uL LAB HEMATOLOGY METHOD 01/07/2025 6:16 PM EST [facility] MCV 92 79 - 98 fL LAB HEMATOLOGY METHOD 01/07/2025 6:16 PM EST [facility] MCH 31.0 26.0 - 32.0 pg LAB HEMATOLOGY METHOD 01/07/2025 6:16 PM EST [facility] MCHC 33.7 30.7 - 35.5 g/dL LAB HEMATOLOGY METHOD 01/07/2025 6:16 PM [facility] RDW 20.0(H) 11.5 - 14.5 % LAB HEMATOLOGY METHOD 01/07/2025 6:16 PM [facility] MPV 10.4 8.8 - 12.5 fL LAB HEMATOLOGY METHOD 01/07/2025 6:16 PM [facility] nRBC 0.0 <=0.0 per 100 WBCs LAB HEMATOLOGY METHOD 01/07/2025 6:16 PM [facility] Differential Type Automated LAB HEMATOLOGY METHOD 01/07/2025 6:16 PM [facility] Neutrophils % 87 % LAB HEMATOLOGY METHOD 01/07/2025 6:16 PM [facility] Lymphocytes % 6 % LAB HEMATOLOGY METHOD 01/07/2025 6:16 PM [facility] Monocytes % 6 % LAB HEMATOLOGY METHOD 01/07/2025 6:16 PM [facility] Eosinophils % 0 % LAB HEMATOLOGY METHOD 01/07/2025 6:16 PM [facility] Basophils % 0 % LAB HEMATOLOGY METHOD 01/07/2025 6:16 PM [facility] Immature Granulocytes % 1 % LAB HEMATOLOGY METHOD 01/07/2025 6:16 PM [facility] Neutrophils Absolute 3.39 1.60 - 6.10 10*3/uL LAB HEMATOLOGY METHOD 01/07/2025 6:16 PM [facility] Lymphocytes Absolute 0.22(L) 1.20 - 3.90 10*3/uL LAB HEMATOLOGY METHOD 01/07/2025 6:16 PM [facility] Monocytes Absolute 0.22(L) 0.30 - 0.90 10*3/uL LAB HEMATOLOGY METHOD 01/07/2025 6:16 PM [facility] Eosinophils Absolute 0.00 0.00 - 0.50 10*3/uL LAB HEMATOLOGY METHOD 01/07/2025 6:16 PM [facility] Basophils Absolute 0.00 0.00 - 0.10 10*3/uL LAB HEMATOLOGY METHOD 01/07/2025 6:16 PM [facility] Immature Granulocytes Absolute 0.03 0.00 - 0.06 10*3/uL LAB HEMATOLOGY METHOD 01/07/2025 6:16 PM [facility] Blood Venous blood specimen / Unknown Venipuncture / Unknown 01/07/2025 5:54 PM EST 01/07/2025 6:04 PM EST Narrative [facility] - 01/07/2025 6:16 PM EST Therapeutic decision making should be based on absolute values, rather than percentages. Maciel Olson MD LAB BLOOD ORDERABLES Final Resul t Performing Organization Address City/[facility]/ZIP Co de Phone Number [facility] [address] [place] [address] * (ABNORMAL) POCT glucose meter (01/07/2025 5:35 PM EST) POCT Glucose 169(H) 74 - 99 mg/dL 01/07/2025 5:37 PM EST [facility] Comment:Accuracy of a glucos e result obtained from a capillary whole blood specimen relies upon adequate, non-compromised capillary blood flow. If the capillary glucose result is not consistent with the patient's clinical signs and symptoms, glucose testing should be repeated with either an arterial or venous sample on the glucometer or sent to the main labortory for testing. Comment 01/07/2025 5:37 PM EST [facility] Shearing Machine Operator ID [place] Schultz 01/07/2025 5:37 PM EST [facility] Device ID [id number] 01/07/2025 5:37 PM EST [facility] Specimen Type POC Capillary 01/07/2025 5:37 PM EST [facility] Blood Capillary blood specimen / Unknown 01/07/2025 5:35 PM EST 01/07/2025 5:37 PM EST Maciel Olson MD LAB POINT OF CARE TE ST DOCKED DEVICE UNSOLICITED RESULTS Final Result Performing Organization Address City/[facility]/ZIP Co de Phone Number [facility] [address] [place] [address] * (ABNORMAL) POCT glucose meter (01/07/2025 11:37 AM EST) POCT Glucose 130(H) 74 - 99 mg/dL 01/07/2025 11:38 AM EST [facility] Comment:Accuracy of a glucos e result obtained from a capillary whole blood specimen relies upon adequate, non-compromised capillary blood flow. If the capillary glucose result is not consistent with the patient's clinical signs and symptoms, glucose testing should be repeated with either an arterial or venous sample on the glucometer or sent to the main labortory for testing. Comment 01/07/2025 11:38 AM EST [facility] Shearing Machine Operator ID India Schultz 01/07/2025 11:38 AM EST [facility] Device ID [id number] 01/07/2025 11:38 AM EST [facility] Specimen Type POC Capillary 01/07/2025 11:38 AM EST [facility] Blood Capillary blood specimen / Unknown 01/07/2025 11:37 AM EST 01/07/2025 11:38 AM EST us Maciel Olson MD LAB POINT OF CARE TE ST DOCKED DEVICE UNSOLICITED RESULTS Final Result Performing Organization Address City/[facility] Co de Phone Number [facility] [address] [place] [address] * POCT glucose meter (01/07/2025 8:14 AM EST) [facility] POCT Glucose 91 74 - 99 mg/dL 01/07/2025 8:15 AM EST [facility] Comment:Accuracy of a glucos e result obtained from a capillary whole blood specimen relies upon adequate, non-compromised capillary blood flow. If the capillary glucose result is not consistent with the patient's clinical signs and symptoms, glucose testing should be repeated with either an arterial or venous sample on the glucometer or sent to the main labortory for testing. Comment 01/07/2025 8:15 AM EST [facility] Shearing Machine Operator ID India Schultz 01/07/2025 8:15 AM EST [facility] Device ID [id number] 01/07/2025 8:15 AM EST [facility] Specimen Type POC Capillary 01/07/2025 8:15 AM EST [facility] Blood Capillary blood specimen / Unknown 01/07/2025 8:14 AM EST 01/07/2025 8:15 AM EST us Maciel Olson MD LAB POINT OF CARE TE ST DOCKED DEVICE UNSOLICITED RESULTS Final Result Performing Organization Address City/[facility]/ZIP Co de Phone Number [facility] [address] [place] [address] * Phosphorus, Plasma (01/07/2025 7:31 AM EST) Phosphorus, Plasma 4.4 2.5 - 4.5 mg/dL 01/07/2025 8:09 AM EST [facility] Blood Venous blood specimen / Unknown Venipuncture / Unknown 01/07/2025 7:31 AM EST 01/07/2025 7:39 AM EST us Maciel Olson MD LAB BLOOD ORDERABLES Final Resul t Performing Organization Address City/[facility]/ZIP Co de Phone Number [facility] [address] [place] [address] * (ABNORMAL) Magnesium, Plasma (01/07/2025 7:31 AM EST) Magnesium, Plasma 2.6(H) 1.9 - 2.4 mg/dL 01/07/2025 8:09 AM EST [facility] Blood Venous blood specimen / Unknown Venipuncture / Unknown 01/07/2025 7:31 AM EST 01/07/2025 7:39 AM EST us Maciel Olson MD LAB BLOOD ORDERABLES Final Resul t Performing Organization Address City/[facility]/ZIP Co de Phone Number [facility] [address] [place] [address] * (ABNORMAL) Comprehensive metabolic panel (01/07/2025 7:31 AM EST) Glucose, Plasma 98 74 - 99 mg/dL 01/07/2025 8:09 AM EST [facility] BUN, Plasma 71(H) 7 - 21 mg/dL 01/07/2025 8:09 AM EST [facility] Creatinine, Plasma 2.10(H) 0.70 - 1.20 mg/dL 01/07/2025 8:09 AM EST [facility] BUN/Creatinine Ratio 34 01/07/2025 8:09 AM EST [facility] Sodium, Plasma 133(L) 136 - 145 mmol/L 01/07/2025 8:09 AM EST [facility] Potassium, Plasma 5.0(H) 3.6 - 4.9 mmol/L 01/07/2025 8:09 AM EST [facility] Chloride, Plasma 104 97 - 107 mmol/L 01/07/2025 8:09 AM EST [facility] CO2, Plasma 18(L) 22 - 29 mmol/L 01/07/2025 8:09 AM EST [facility] Anion Gap 11 6 - 16 mmol/L 01/07/2025 8:09 AM EST [facility] Total Calcium, Plasma 8.2(L) 8.9 - 10.2 mg/dL 01/07/2025 8:09 AM EST [facility] Total Protein 4.7(L) 6.3 - 7.9 g/dL 01/07/2025 8:09 AM EST [facility] Albumin, Plasma 2.9(L) 3.5 - 5.2 g/dL 01/07/2025 8:09 AM EST [facility] AST, Plasma 45 10 - 50 U/L 01/07/2025 8:09 AM [facility] ALT, Plasma 96(H) 10 - 50 U/L 01/07/2025 8:09 AM EST [facility] Alkaline Phosphatase, Plasma 69 40 - 115 U/L 01/07/2025 8:09 AM [facility] Total Bilirubin, Plasma 3.2(H) 0.2 - 1.1 mg/dL 01/07/2025 8:09 AM EST [facility] eGFRcr 38.8 mL/min/1.7 3m*2 01/07/2025 8:09 AM EST [facility] Comment:Reported eGFRcr in m L/min/1.73m2 is based the CKD-EPI 2020 equation that does not use a race coefficient. Blood Venous blood specimen / Unknown Venipuncture / Unknown 01/07/2025 7:31 AM EST 01/07/2025 7:39 AM EST us Maciel Olson MD LAB BLOOD ORDERABLES Final Resul t [facility] [address] [place] [address] * (ABNORMAL) CBC and Differential (01/07/2025 7:31 AM EST) WBC Count 5.55 3.70 - 10.30 10*3/uL LAB HEMATOLOGY METHOD 01/07/2025 7:46 AM EST [facility] RBC Count 2.74(L) 4.60 - 6.10 10*6/uL LAB HEMATOLOGY METHOD 01/07/2025 7:46 AM EST [facility] HGB 8.6(L) 13.7 - 17.5 g/dL LAB HEMATOLOGY METHOD 01/07/2025 7:46 AM EST [facility] HCT 24.8(L) 40.0 - 51.0 % LAB HEMATOLOGY METHOD 01/07/2025 7:46 AM EST [facility] Platelet Count 49(L) 155 - 369 10*3/uL LAB HEMATOLOGY METHOD 01/07/2025 7:46 AM EST [facility] MCV 91 79 - 98 fL LAB HEMATOLOGY METHOD 01/07/2025 7:46 AM EST [facility] MCH 31.4 26.0 - 32.0 pg LAB HEMATOLOGY METHOD 01/07/2025 7:46 AM EST [facility] MCHC 34.7 30.7 - 35.5 g/dL LAB HEMATOLOGY METHOD 01/07/2025 7:46 AM EST [facility] RDW 20.3(H) 11.5 - 14.5 % LAB HEMATOLOGY METHOD 01/07/2025 7:46 AM EST [facility] MPV 11.1 8.8 - 12.5 fL LAB HEMATOLOGY METHOD 01/07/2025 7:46 AM EST [facility] nRBC 0.0 <=0.0 per 100 WBCs LAB HEMATOLOGY METHOD 01/07/2025 7:46 AM EST [facility] Differential Type Automated LAB HEMATOLOGY METHOD 01/07/2025 7:46 AM EST [facility] Neutrophils % 76 % LAB HEMATOLOGY METHOD 01/07/2025 7:46 AM EST [facility] Lymphocytes % 7 % LAB HEMATOLOGY METHOD 01/07/2025 7:46 AM EST [facility] Monocytes % 16 % LAB HEMATOLOGY METHOD 01/07/2025 7:46 AM EST [facility] Eosinophils % 0 % LAB HEMATOLOGY METHOD 01/07/2025 7:46 AM EST [facility] Basophils % 0 % LAB HEMATOLOGY METHOD 01/07/2025 7:46 AM EST [facility] Immature Granulocytes % 1 % LAB HEMATOLOGY METHOD 01/07/2025 7:46 AM EST [facility] Neutrophils Absolute 4.26 1.60 - 6.10 10*3/uL LAB HEMATOLOGY METHOD 01/07/2025 7:46 AM EST [facility] Lymphocytes Absolute 0.38(L) 1.20 - 3.90 10*3/uL LAB HEMATOLOGY METHOD 01/07/2025 7:46 AM EST [facility] Monocytes Absolute 0.88 0.30 - 0.90 10*3/uL LAB HEMATOLOGY METHOD 01/07/2025 7:46 AM EST [facility] Eosinophils Absolute 0.00 0.00 - 0.50 10*3/uL LAB HEMATOLOGY METHOD 01/07/2025 7:46 AM EST [facility] Basophils Absolute 0.00 0.00 - 0.10 10*3/uL LAB HEMATOLOGY METHOD 01/07/2025 7:46 AM EST [facility] Immature Granulocytes Absolute 0.03 0.00 - 0.06 10*3/uL LAB HEMATOLOGY METHOD 01/07/2025 7:46 AM EST [facility] Blood Venous blood specimen / Unknown Venipuncture / Unknown 01/07/2025 7:31 AM EST 01/07/2025 7:38 AM EST Narrative [facility] - 01/07/2025 7:46 AM EST Therapeutic decision making should be based on absolute values, rather than percentages. us Maciel Olson MD LAB BLOOD ORDERABLES Final Resul t [facility] [address] [place] [address] * (ABNORMAL) POCT glucose meter (01/07/2025 6:02 AM EST) Pathologist [facility] POCT Glucose 104(H) 74 - 99 mg/dL 01/07/2025 7:17 AM EST [facility] Comment:Accuracy of a glucos e result obtained from a capillary whole blood specimen relies upon adequate, non-compromised capillary blood flow. If the capillary glucose result is not consistent with the patient's clinical signs and symptoms, glucose testing should be repeated with either an arterial or venous sample on the glucometer or sent to the main labortory for testing. Comment 01/07/2025 7:17 AM EST [facility] Shearing Machine Operator ID Darryl Kinsey 025 7:17 AM EST [facility] Device ID [id number] 01/07/2025 7:17 AM EST [facility] Specimen Type POC Capillary 01/07/2025 7:17 AM EST [facility] Blood Capillary blood specimen / Unknown 01/07/2025 6:02 AM EST 01/07/2025 7:17 AM EST Maciel Olson MD LAB POINT OF CARE TE ST DOCKED DEVICE UNSOLICITED RESULTS Final Result Performing Organization Address City/State/[facility] Co de Phone Number [facility] [address] [place] [address] * Tacrolimus (01/07/2025 4:38 AM EST) Pathologist [facility] Tacrolimus 11.1 4.0 - 17.0 ng/mL 01/07/2025 8:41 AM EST [facility] Comment: Tacrolimus therapeutic range: Initial (<3 mo.) Maintenance Kidney 8-13 ng/mL 4-8 ng/mL Liver 8-13 ng/mL 4-8 ng/mL Heart 8-15 ng/mL 7-13 ng/mL Lung;Heart/Lung 8-17 ng/mL 8-13 ng/mL Blood Venous blood specimen / Unknown Venipuncture / Unknown 01/07/2025 4:38 AM EST 01/07/2025 4:57 AM EST Narrative [facility] - 01/07/2025 8:41 AM EST Test performed by LC-MS/MS at the [facility]. This test was developed and its performance characteristics determined by [facility]. It has not been cleared or approved by the FDA. The laboratory is regulated under CLIA as qualified to perform high-complexity testing. This test is used for clinical purposes. Test performed by LC-MS/MS at the [facility]. This test was developed and its performance characteristics determined by [facility]. It has not been cleared or approved by the FDA. The laboratory is regulated under CLIA as qualified to perform high-complexity testing. This test is used for clinical purposes. us Maciel Olson MD LAB BLOOD ORDERABLES Final Resul t Performing Organization Address [facility] Co de Phone Number [facility] [address] [place] [address] * (ABNORMAL) POCT glucose meter (01/07/2025 12:56 AM EST) Pathologist [facility] POCT Glucose 107(H) 74 - 99 mg/dL 01/07/2025 12:57 AM EST [facility] Comment:Accuracy of a glucos e result obtained from a capillary whole blood specimen relies upon adequate, non-compromised capillary blood flow. If the capillary glucose result is not consistent with the patient's clinical signs and symptoms, glucose testing should be repeated with either an arterial or venous sample on the glucometer or sent to the main labortory for testing. Comment 01/07/2025 12:57 AM EST [facility] Shearing Machine Operator ID Isabel Shepherd 025 12:57 AM EST [facility] Device ID [id number] 01/07/2025 12:57 AM EST [facility] Specimen Type POC Venous 01/07/2025 12:57 AM EST [facility] Blood Venous blood specimen / Unknown 01/07/2025 12:56 AM EST 01/07/2025 12:57 AM EST Maciel Olson MD LAB POINT OF CARE TE ST DOCKED DEVICE UNSOLICITED RESULTS Final Result Performing Organization Address City/[facility] Co de Phone Number [facility] [address] [place] [address] * (ABNORMAL) Prothrombin Time/INR (01/07/2025 12:56 AM EST) Pathologist [facility] Prothrombin Time 16.5(H) 12.0 - 14.3 sec LAB COAGULATION METHOD 01/07/2025 1:30 AM EST [facility] INR 1.3(H) 0.9 - 1.1 LAB COAGULATION METHOD 01/07/2025 1:30 AM EST [facility] Blood Blood sample taken from central line / Unknown (Central Line) Existing Catheter / Unknown 01/07/2025 12:56 AM EST 01/07/2025 1:01 AM EST Narrative [facility] - 01/07/2025 1:30 AM EST OPTIMAL INR RANGES FOR PATIENT ON ORAL ANTICOAGULANT THERAPY Prevention of venous thromboembolism INR 2.0 to 3.0 In patients with heart disease: Atrial fibrillation INR 2.0 to 3.0 Valvular heart disease INR 2.0 to 3.0 Tissue heart valves INR 2.0 to 3.0 Mechanical prosthetic valves INR 2.5 to 3.5 Prevention of recurrent OR INR 2.5 to 3.5 Maciel Olson MD LAB BLOOD ORDERABLES Final Resul t Performing Organization Address City/[facility]/ZIP Co de Phone Number [facility] [address] [place] [address] * (ABNORMAL) POCT glucose meter (01/06/2025 6:00 PM EST) POCT Glucose 130(H) 74 - 99 mg/dL 01/06/2025 6:01 PM EST [facility] Comment:Accuracy of a glucos e result obtained from a capillary whole blood specimen relies upon adequate, non-compromised capillary blood flow. If the capillary glucose result is not consistent with the patient's clinical signs and symptoms, glucose testing should be repeated with either an arterial or venous sample on the glucometer or sent to the main labortory for testing. Comment 01/06/2025 6:01 PM EST [facility] Shearing Machine Operator ID Galileo Abdi 6:01 PM EST [facility] Device ID [id number] 01/06/2025 6:01 PM EST [facility] Specimen Type POC Venous 01/06/2025 6:01 PM EST [facility] Blood Venous blood specimen / Unknown 01/06/2025 6:00 PM EST 01/06/2025 6:01 PM EST Maciel Olson MD LAB POINT OF CARE TE ST DOCKED DEVICE UNSOLICITED RESULTS Final Result Performing Organization Address City/[facility]/ZIP Co de Phone Number [facility] [address] [place] [address] * (ABNORMAL) Phosphorus, Plasma (01/06/2025 6:00 PM EST) Phosphorus, Plasma 5.2(H) 2.5 - 4.5 mg/dL 01/06/2025 6:53 PM EST [facility] Blood Venous blood specimen / Unknown Venipuncture / Unknown 01/06/2025 6:00 PM EST 01/06/2025 6:21 PM EST us Maciel Olson MD LAB BLOOD ORDERABLES Final Resul t [facility] [address] [place] [address] * (ABNORMAL) Magnesium, Plasma (01/06/2025 6:00 PM EST) Magnesium, Plasma 2.6(H) 1.9 - 2.4 mg/dL 01/06/2025 6:53 PM EST [facility] Blood Venous blood specimen / Unknown Venipuncture / Unknown 01/06/2025 6:00 PM EST 01/06/2025 6:21 PM EST us Maciel Olson MD LAB BLOOD ORDERABLES Final Resul t [facility] [address] [place] [address] * (ABNORMAL) Comprehensive metabolic panel (01/06/2025 6:00 PM EST) Glucose, Plasma 121(H) 74 - 99 mg/dL 01/06/2025 6:53 PM EST [facility] BUN, Plasma 67(H) 7 - 21 mg/dL 01/06/2025 6:53 PM EST [facility] Creatinine, Plasma 2.27(H) 0.70 - 1.20 mg/dL 01/06/2025 6:53 PM EST [facility] BUN/Creatinine Ratio 30 01/06/2025 6:53 PM EST [facility] Sodium, Plasma 129(L) 136 - 145 mmol/L 01/06/2025 6:53 PM EST [facility] Potassium, Plasma 4.9 3.6 - 4.9 mmol/L 01/06/2025 6:53 PM EST [facility] Chloride, Plasma 101 97 - 107 mmol/L 01/06/2025 6:53 PM EST [facility] CO2, Plasma 17(L) 22 - 29 mmol/L 01/06/2025 6:53 PM EST [facility] Anion Gap 11 6 - 16 mmol/L 01/06/2025 6:53 PM EST [facility] Total Calcium, Plasma 8.3(L) 8.9 - 10.2 mg/dL 01/06/2025 6:53 PM EST [facility] Total Protein 5.0(L) 6.3 - 7.9 g/dL 01/06/2025 6:53 PM EST [facility] Albumin, Plasma 3.2(L) 3.5 - 5.2 g/dL 01/06/2025 6:53 PM EST [facility] AST, Plasma 51(H) 10 - 50 U/L 01/06/2025 6:53 PM EST [facility] ALT, Plasma 107(H) 10 - 50 U/L 01/06/2025 6:53 PM EST [facility] Alkaline Phosphatase, Plasma 72 40 - 115 U/L 01/06/2025 6:53 PM EST [facility] Total Bilirubin, Plasma 3.7(H) 0.2 - 1.1 mg/dL 01/06/2025 6:53 PM EST [facility] eGFRcr 35.4 mL/min/1.7 3m*2 01/06/2025 6:53 PM EST [facility] Comment:Reported eGFRcr in m L/min/1.73m2 is based the CKD-EPI 2020 equation that does not use a race coefficient. Blood Venous blood specimen / Unknown Venipuncture / Unknown 01/06/2025 6:00 PM EST 01/06/2025 6:21 PM EST us Maciel Olson MD LAB BLOOD ORDERABLES Final Resul t [facility] [address] [place] [address] * (ABNORMAL) CBC and Differential (01/06/2025 6:00 PM EST) WBC Count 5.07 3.70 - 10.30 10*3/uL LAB HEMATOLOGY METHOD 01/06/2025 6:40 PM EST [facility] RBC Count 2.93(L) 4.60 - 6.10 10*6/uL LAB HEMATOLOGY METHOD 01/06/2025 6:40 PM EST [facility] HGB 9.1(L) 13.7 - 17.5 g/dL LAB HEMATOLOGY METHOD 01/06/2025 6:40 PM EST [facility] HCT 26.3(L) 40.0 - 51.0 % LAB HEMATOLOGY METHOD 01/06/2025 6:40 PM EST [facility] Platelet Count 55(L) 155 - 369 10*3/uL LAB HEMATOLOGY METHOD 01/06/2025 6:40 PM EST [facility] MCV 90 79 - 98 fL LAB HEMATOLOGY METHOD 01/06/2025 6:40 PM EST [facility] MCH 31.1 26.0 - 32.0 pg LAB HEMATOLOGY METHOD 01/06/2025 6:40 PM EST [facility] MCHC 34.6 30.7 - 35.5 g/dL LAB HEMATOLOGY METHOD 01/06/2025 6:40 PM EST [facility] RDW 20.1(H) 11.5 - 14.5 % LAB HEMATOLOGY METHOD 01/06/2025 6:40 PM EST [facility] MPV 10.6 8.8 - 12.5 fL LAB HEMATOLOGY METHOD 01/06/2025 6:40 PM EST [facility] nRBC 0.0 <=0.0 per 100 WBCs LAB HEMATOLOGY METHOD 01/06/2025 6:40 PM EST [facility] Differential Type Automated LAB HEMATOLOGY METHOD 01/06/2025 6:40 PM EST [facility] Neutrophils % 86 % LAB HEMATOLOGY METHOD 01/06/2025 6:40 PM EST [facility] Lymphocytes % 5 % LAB HEMATOLOGY METHOD 01/06/2025 6:40 PM EST [facility] Monocytes % 8 % LAB HEMATOLOGY METHOD 01/06/2025 6:40 PM EST [facility] Eosinophils % 0 % LAB HEMATOLOGY METHOD 01/06/2025 6:40 PM EST [facility] Basophils % 0 % LAB HEMATOLOGY METHOD 01/06/2025 6:40 PM EST [facility] Immature Granulocytes % 1 % LAB HEMATOLOGY METHOD 01/06/2025 6:40 PM EST [facility] Neutrophils Absolute 4.41 1.60 - 6.10 10*3/uL LAB HEMATOLOGY METHOD 01/06/2025 6:40 PM EST [facility] Lymphocytes Absolute 0.24(L) 1.20 - 3.90 10*3/uL LAB HEMATOLOGY METHOD 01/06/2025 6:40 PM EST [facility] Monocytes Absolute 0.39 0.30 - 0.90 10*3/uL LAB HEMATOLOGY METHOD 01/06/2025 6:40 PM EST [facility] Eosinophils Absolute 0.00 0.00 - 0.50 10*3/uL LAB HEMATOLOGY METHOD 01/06/2025 6:40 PM EST [facility] Basophils Absolute 0.00 0.00 - 0.10 10*3/uL LAB HEMATOLOGY METHOD 01/06/2025 6:40 PM EST [facility] Immature Granulocytes Absolute 0.03 0.00 - 0.06 10*3/uL LAB HEMATOLOGY METHOD 01/06/2025 6:40 PM EST [facility] Blood Venous blood specimen / Unknown Venipuncture / Unknown 01/06/2025 6:00 PM EST 01/06/2025 6:29 PM EST Narrative [facility] - 01/06/2025 6:40 PM EST Therapeutic decision making should be based on absolute values, rather than percentages. us Maciel Olson MD LAB BLOOD ORDERABLES Final Resul t [facility] [address] [place] [address] * POCT glucose meter (01/06/2025 5:07 PM EST) POCT Glucose 79 74 - 99 mg/dL 01/06/2025 5:08 PM EST [facility] Comment:Accuracy of a glucos e result obtained from a capillary whole blood specimen relies upon adequate, non-compromised capillary blood flow. If the capillary glucose result is not consistent with the patient's clinical signs and symptoms, glucose testing should be repeated with either an arterial or venous sample on the glucometer or sent to the main labortory for testing. Comment 01/06/2025 5:08 PM EST [facility] Shearing Machine Operator ID Galileo Abdi 5:08 PM EST [facility] Device ID [id number] 01/06/2025 5:08 PM EST [facility] Specimen Type POC Venous 01/06/2025 5:08 PM EST [facility] Blood Venous blood specimen / Unknown 01/06/2025 5:07 PM EST 01/06/2025 5:08 PM EST us Maciel Olson MD LAB POINT OF CARE TE ST DOCKED DEVICE UNSOLICITED RESULTS Final Result Performing Organization Address City/[facility]/ZIP Co de Phone Number [facility] [address] [place] [address] * (ABNORMAL) POCT glucose meter (01/06/2025 11:47 AM EST) [facility] POCT Glucose 106(H) 74 - 99 mg/dL 01/06/2025 11:49 AM EST [facility] Comment:Accuracy of a glucos e result obtained from a capillary whole blood specimen relies upon adequate, non-compromised capillary blood flow. If the capillary glucose result is not consistent with the patient's clinical signs and symptoms, glucose testing should be repeated with either an arterial or venous sample on the glucometer or sent to the main labortory for testing. Comment 01/06/2025 11:49 AM EST [facility] Shearing Machine Operator ID Galileo Abdi 11:49 AM EST [facility] Device ID [id number] 01/06/2025 11:49 AM EST [facility] Specimen Type POC Venous 01/06/2025 11:49 AM EST [facility] Blood Venous blood specimen / Unknown 01/06/2025 11:47 AM EST 01/06/2025 11:49 AM EST us Maciel Olson MD LAB POINT OF CARE TE ST DOCKED DEVICE UNSOLICITED RESULTS Final Result [facility] [address] [place] [address] * (ABNORMAL) Prothrombin Time/INR (01/06/2025 11:44 AM EST) Prothrombin Time 17.0(H) 12.0 - 14.3 sec LAB COAGULATION METHOD 01/06/2025 12:20 PM EST [facility] INR 1.4(H) 0.9 - 1.1 LAB COAGULATION METHOD 01/06/2025 12:20 PM EST [facility] Blood Venous blood specimen / Unknown Venipuncture / Unknown 01/06/2025 11:44 AM EST 01/06/2025 11:55 AM EST Narrative [facility] - 01/06/2025 12:20 PM EST OPTIMAL INR RANGES FOR PATIENT ON ORAL ANTICOAGULANT THERAPY Prevention of venous thromboembolism INR 2.0 to 3.0 In patients with heart disease: Atrial fibrillation INR 2.0 to 3.0 Valvular heart disease INR 2.0 to 3.0 Tissue heart valves INR 2.0 to 3.0 Mechanical prosthetic valves INR 2.5 to 3.5 Prevention of recurrent OR INR 2.5 to 3.5 us Satnam Beckford MD LAB BLOOD ORDERABLES Final Result Performing Organization Address City/State/[facility] Co de Phone Number [facility] [address] [place] [address] * XR Abdomen 1 View (01/06/2025 8:47 AM EST) Anatomical Region Laterality Modality Body Digital Radiogra phy Impressions 01/06/2025 9:33 AM EST Similar appearance of postoperative ileus. CRITICAL RESULT: No. COMMUNICATION: Per this written report. Drafted by Rojelio Hahn MD on 01/06/2025 9:28 AM Final report signed by Rojelio Hahn MD on 01/06/2025 9:33 AM Narrative 01/06/2025 9:33 AM EST CLINICAL INDICATION: Eval ileus TECHNIQUE: Supine radiograph of the abdomen. COMPARISON: 01/05/2025 abdominal radiograph FINDINGS: Mild to moderate gaseous gastric distention, slightly decreased in the interval. Redemonstrated diffuse small bowel dilatation. Dilated right colon. Overall, these findings appear similar to prior examination. 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 Urinary catheter is in place. Procedure Note Rojelio Hahn MD - 01/06/2025 CLINICAL INDICATION: Eval ileus TECHNIQUE: Supine radiograph of the abdomen. COMPARISON: 01/05/2025 abdominal radiograph FINDINGS: Mild to moderate gaseous gastric distention, slightly decreased in theinterval. Redemonstrated diffuse small bowel dilatation. Dilated rightcolon. Overall, these findings appear similar to prior examination. Postsurgical changes with skin manju, two right upper quadrant drains,right upper quadrant surgical clips, and presumed ectopic biliary catheterin the right hemiabdomen. Urinary catheter is in place. IMPRESSION: Similar appearance of postoperative ileus. CRITICAL RESULT: No. COMMUNICATION: Per this written report. Drafted by Rojelio Hahn MD on 01/06/2025 9:28 AM Final report signed by Rojelio Hahn MD on 01/06/2025 9:33 AM Kamila Bashir SEO ASSISTANT IMG XR PROCEDURES Final Resu lt * (ABNORMAL) Phosphorus, Plasma (01/06/2025 7:36 AM EST) Phosphorus, Plasma 5.5(H) 2.5 - 4.5 mg/dL 01/06/2025 8:25 AM EST [facility] Blood Venous blood specimen / Unknown Venipuncture / Unknown 01/06/2025 7:36 AM EST 01/06/2025 7:59 AM EST Maciel Olson MD LAB BLOOD ORDERABLES Final Resul t [facility] [address] [place] [address] * (ABNORMAL) Magnesium, Plasma (01/06/2025 7:36 AM EST) Magnesium, Plasma 2.6(H) 1.9 - 2.4 mg/dL 01/06/2025 8:25 AM EST [facility] Blood Venous blood specimen / Unknown Venipuncture / Unknown 01/06/2025 7:36 AM EST 01/06/2025 7:59 AM EST us Maciel Olson MD LAB BLOOD ORDERABLES Final Resul t [facility] [address] [place] [address] * (ABNORMAL) Comprehensive metabolic panel (01/06/2025 7:36 AM EST) Glucose, Plasma 101(H) 74 - 99 mg/dL 01/06/2025 8:25 AM EST [facility] BUN, Plasma 63(H) 7 - 21 mg/dL 01/06/2025 8:25 AM EST [facility] Creatinine, Plasma 2.22(H) 0.70 - 1.20 mg/dL 01/06/2025 8:25 AM EST [facility] BUN/Creatinine Ratio 28 01/06/2025 8:25 AM EST [facility] Sodium, Plasma 129(L) 136 - 145 mmol/L 01/06/2025 8:25 AM EST [facility] Potassium, Plasma 4.7 3.6 - 4.9 mmol/L 01/06/2025 8:25 AM EST [facility] Chloride, Plasma 101 97 - 107 mmol/L 01/06/2025 8:25 AM EST [facility] CO2, Plasma 15(L) 22 - 29 mmol/L 01/06/2025 8:25 AM EST [facility] Anion Gap 13 6 - 16 mmol/L 01/06/2025 8:25 AM EST [facility] Total Calcium, Plasma 8.5(L) 8.9 - 10.2 mg/dL 01/06/2025 8:25 AM EST [facility] Total Protein 5.3(L) 6.3 - 7.9 g/dL 01/06/2025 8:25 AM EST [facility] Albumin, Plasma 3.3(L) 3.5 - 5.2 g/dL 01/06/2025 8:25 AM EST [facility] AST, Plasma 64(H) 10 - 50 U/L 01/06/2025 8:25 AM EST [facility] ALT, Plasma 117(H) 10 - 50 U/L 01/06/2025 8:25 AM EST [facility] Alkaline Phosphatase, Plasma 68 40 - 115 U/L 01/06/2025 8:25 AM EST [facility] Total Bilirubin, Plasma 4.1(H) 0.2 - 1.1 mg/dL 01/06/2025 8:25 AM EST [facility] eGFRcr 36.3 mL/min/1.7 3m*2 01/06/2025 8:25 AM EST [facility] Comment:Reported eGFRcr in m L/min/1.73m2 is based the CKD-EPI 2020 equation that does not use a race coefficient. Blood Venous blood specimen / Unknown Venipuncture / Unknown 01/06/2025 7:36 AM EST 01/06/2025 7:59 AM EST us Maciel Olson MD LAB BLOOD ORDERABLES Final Resul t [facility] [address] [place] [address] * (ABNORMAL) Prothrombin Time/INR (01/06/2025 7:36 AM EST) Prothrombin Time 17.6(H) 12.0 - 14.3 sec LAB COAGULATION METHOD 01/06/2025 7:58 AM EST [facility] INR 1.4(H) 0.9 - 1.1 LAB COAGULATION METHOD 01/06/2025 7:58 AM EST [facility] Blood Venous blood specimen / Unknown Venipuncture / Unknown 01/06/2025 7:36 AM EST 01/06/2025 7:43 AM EST Narrative [facility] - 01/06/2025 7:58 AM EST OPTIMAL INR RANGES FOR PATIENT ON ORAL ANTICOAGULANT THERAPY Prevention of venous thromboembolism INR 2.0 to 3.0 In patients with heart disease: Atrial fibrillation INR 2.0 to 3.0 Valvular heart disease INR 2.0 to 3.0 Tissue heart valves INR 2.0 to 3.0 Mechanical prosthetic valves INR 2.5 to 3.5 Prevention of recurrent OR INR 2.5 to 3.5 us Satnam Beckford MD LAB BLOOD ORDERABLES Final Result [facility] [address] [place] [address] * (ABNORMAL) CBC W/O Differential (01/06/2025 7:36 AM EST) WBC Count 6.33 3.70 - 10.30 10*3/uL LAB HEMATOLOGY METHOD 01/06/2025 8:10 AM EST [facility] RBC Count 2.94(L) 4.60 - 6.10 10*6/uL LAB HEMATOLOGY METHOD 01/06/2025 8:10 AM EST [facility] HGB 9.0(L) 13.7 - 17.5 g/dL LAB HEMATOLOGY METHOD 01/06/2025 8:10 AM EST [facility] HCT 26.2(L) 40.0 - 51.0 % LAB HEMATOLOGY METHOD 01/06/2025 8:10 AM EST [facility] Platelet Count 47(L) 155 - 369 10*3/uL LAB HEMATOLOGY METHOD 01/06/2025 8:10 AM EST [facility] MCV 89 79 - 98 fL LAB HEMATOLOGY METHOD 01/06/2025 8:10 AM EST [facility] MCH 30.6 26.0 - 32.0 pg LAB HEMATOLOGY METHOD 01/06/2025 8:10 AM EST [facility] MCHC 34.4 30.7 - 35.5 g/dL LAB HEMATOLOGY METHOD 01/06/2025 8:10 AM EST [facility] RDW 19.9(H) 11.5 - 14.5 % LAB HEMATOLOGY METHOD 01/06/2025 8:10 AM EST [facility] MPV 10.4 8.8 - 12.5 fL LAB HEMATOLOGY METHOD 01/06/2025 8:10 AM [facility] nRBC 0.0 <=0.0 per 100 WBCs LAB HEMATOLOGY METHOD 01/06/2025 8:10 AM [facility] Blood Venous blood specimen / Unknown Venipuncture / Unknown 01/06/2025 7:36 AM EST 01/06/2025 8:03 AM EST Satnam Beckford MD LAB BLOOD ORDERABLES Final Result [facility] [address] [place] [address] * Tacrolimus (01/06/2025 5:15 AM EST) Tacrolimus 13.6 4.0 - 17.0 ng/mL 01/06/2025 7:49 AM EST [facility] Comment: Tacrolimus therapeutic range: Initial (<3 mo.) Maintenance Kidney 8-13 ng/mL 4-8 ng/mL Liver 8-13 ng/mL 4-8 ng/mL Heart 8-15 ng/mL 7-13 ng/mL Lung;Heart/Lung 8-17 ng/mL 8-13 ng/mL Blood Venous blood specimen / Unknown Venipuncture / Unknown 01/06/2025 5:15 AM EST 01/06/2025 5:24 AM EST Narrative [facility] - 01/06/2025 7:49 AM EST Test performed by LC-MS/MS at the [facility]. This test was developed and its performance characteristics determined by [facility]. It has not been cleared or approved by the FDA. The laboratory is regulated under CLIA as qualified to perform high-complexity testing. This test is used for clinical purposes. Test performed by LC-MS/MS at the [facility]. This test was developed and its performance characteristics determined by [facility]. It has not been cleared or approved by the FDA. The laboratory is regulated under CLIA as qualified to perform high-complexity testing. This test is used for clinical purposes. Satnam Beckford MD LAB BLOOD ORDERABLES Final Result [facility] [address] [place] [address] * (ABNORMAL) Prothrombin Time/INR (01/06/2025 4:27 AM EST) Prothrombin Time 17.6(H) 12.0 - 14.3 sec LAB COAGULATION METHOD 01/06/2025 5:13 AM EST [facility] INR 1.4(H) 0.9 - 1.1 LAB COAGULATION METHOD 01/06/2025 5:13 AM EST [facility] Blood Venous blood specimen / Unknown Venipuncture / Unknown 01/06/2025 4:27 AM EST 01/06/2025 4:37 AM EST [facility] - 01/06/2025 5:13 AM EST OPTIMAL INR RANGES FOR PATIENT ON ORAL ANTICOAGULANT THERAPY Prevention of venous thromboembolism INR 2.0 to 3.0 In patients with heart disease: Atrial fibrillation INR 2.0 to 3.0 Valvular heart disease INR 2.0 to 3.0 Tissue heart valves INR 2.0 to 3.0 Mechanical prosthetic valves INR 2.5 to 3.5 Prevention of recurrent OR INR 2.5 to 3.5 Satnam Beckford MD LAB BLOOD ORDERABLES Final Result Performing Organization Address City/State/[facility] Co de Phone Number [facility] [address] [place] [address] * (ABNORMAL) CBC W/O Differential (01/06/2025 4:27 AM EST) WBC Count 6.02 3.70 - 10.30 10*3/uL LAB HEMATOLOGY METHOD 01/06/2025 4:46 AM EST [facility] RBC Count 2.83(L) 4.60 - 6.10 10*6/uL LAB HEMATOLOGY METHOD 01/06/2025 4:46 AM EST [facility] HGB 8.5(L) 13.7 - 17.5 g/dL LAB HEMATOLOGY METHOD 01/06/2025 4:46 AM EST [facility] HCT 25.1(L) 40.0 - 51.0 % LAB HEMATOLOGY METHOD 01/06/2025 4:46 AM EST [facility] Platelet Count 45(L) 155 - 369 10*3/uL LAB HEMATOLOGY METHOD 01/06/2025 4:46 AM EST [facility] MCV 89 79 - 98 fL LAB HEMATOLOGY METHOD 01/06/2025 4:46 AM EST [facility] MCH 30.0 26.0 - 32.0 pg LAB HEMATOLOGY METHOD 01/06/2025 4:46 AM EST [facility] MCHC 33.9 30.7 - 35.5 g/dL LAB HEMATOLOGY METHOD 01/06/2025 4:46 AM EST [facility] RDW 19.6(H) 11.5 - 14.5 % LAB HEMATOLOGY METHOD 01/06/2025 4:46 AM EST [facility] MPV 10.0 8.8 - 12.5 fL LAB HEMATOLOGY METHOD 01/06/2025 4:46 AM EST [facility] nRBC 0.0 <=0.0 per 100 WBCs LAB HEMATOLOGY METHOD 01/06/2025 4:46 AM EST [facility] Blood Venous blood specimen / Unknown Venipuncture / Unknown 01/06/2025 4:27 AM EST 01/06/2025 4:37 AM EST Satnam Beckford MD LAB BLOOD ORDERABLES Final Result Performing Organization Address City/State/[facility] Co de Phone Number [facility] [address] [place] [address] * XR Chest 1 View (01/06/2025 2:41 AM EST) Anatomical Region Laterality Modality Chest Digital Radiogra phy Impressions 01/06/2025 5:47 AM EST Persistent hypoventilatory changes with scattered, basilar predominant airspace disease and atelectasis. No new consolidation. CRITICAL RESULT: No. COMMUNICATION: Per this written report. Drafted by Caroline Veras MD on 01/06/2025 5:44 AM Final report signed by Caroline Veras MD on 01/06/2025 5:47 AM Narrative 01/06/2025 5:47 AM EST CLINICAL INDICATION: S/P Liver TXP - evaluation of lung santana TECHNIQUE: Single AP view of chest. COMPARISON: Chest radiograph 01/05/2025. FINDINGS: Stable support hardware. Stable mediastinal contours and cardiac silhouette. Persistent low lung volumes. Similar right basilar and left perihilar and basilar airspace opacities. Trace left effusion. No pneumothorax. Procedure Note Caroline Veras MD - 01/06/2025 CLINICAL INDICATION: S/P Liver TXP - evaluation of lung santana TECHNIQUE: Single AP view of chest. COMPARISON: Chest radiograph 01/05/2025. FINDINGS: Stable support hardware. Stable mediastinal contours and cardiacsilhouette. Persistent low lung volumes. Similar right basilar and leftperihilar and basilar airspace opacities. Trace left effusion. Nopneumothorax. IMPRESSION: Persistent hypoventilatory changes with scattered, basilar predominantairspace disease and atelectasis. No new consolidation. CRITICAL RESULT: No. COMMUNICATION: Per this written report. Drafted by Caroline Veras MD on 01/06/2025 5:44 AM Final report signed by Caroline Veras MD on 01/06/2025 5:47 AM Satnam Beckford MD IMG XR PROCEDURES Final Res ult * (ABNORMAL) POCT glucose meter (01/06/2025 12:19 AM EST) POCT Glucose 109(H) 74 - 99 mg/dL 01/06/2025 12:22 AM EST [facility] Comment:Accuracy of a glucos e result obtained from a capillary whole blood specimen relies upon adequate, non-compromised capillary blood flow. If the capillary glucose result is not consistent with the patient's clinical signs and symptoms, glucose testing should be repeated with either an arterial or venous sample on the glucometer or sent to the main labortory for testing. Comment 01/06/2025 12:22 AM EST [facility] Shearing Machine Operator ID Sarah Montanez 01/06/2025 12:22 AM EST [facility] Device ID [id number] 01/06/2025 12:22 AM EST [facility] Specimen Type POC Arterial 01/06/2025 12:22 AM EST [facility] Blood Arterial blood specimen / Unknown 01/06/2025 12:19 AM EST 01/06/2025 12:22 AM EST Maciel Olson MD LAB POINT OF CARE TE ST DOCKED DEVICE UNSOLICITED RESULTS Final Result [facility] [address] [place] [address] * (ABNORMAL) Phosphorus, Plasma (01/06/2025 12:15 AM EST) Phosphorus, Plasma 5.9(H) 2.5 - 4.5 mg/dL 01/06/2025 1:00 AM EST [facility] Blood Venous blood specimen / Unknown Venipuncture / Unknown 01/06/2025 12:15 AM EST 01/06/2025 12:27 AM EST us Maciel Olson MD LAB BLOOD ORDERABLES Final Resul t Performing Organization Address [facility] Co de Phone Number [facility] [address] [place] [address] * (ABNORMAL) Magnesium, Plasma (01/06/2025 12:15 AM EST) Magnesium, Plasma 2.6(H) 1.9 - 2.4 mg/dL 01/06/2025 1:00 AM EST [facility] Blood Venous blood specimen / Unknown Venipuncture / Unknown 01/06/2025 12:15 AM EST 01/06/2025 12:27 AM EST us Maciel Olson MD LAB BLOOD ORDERABLES Final Resul t Performing Organization Address [facility] de Phone Number [facility] [address] [place] [address] * (ABNORMAL) Comprehensive metabolic panel (01/06/2025 12:15 AM EST) Glucose, Plasma 105(H) 74 - 99 mg/dL 01/06/2025 1:00 AM EST [facility] BUN, Plasma 60(H) 7 - 21 mg/dL 01/06/2025 1:00 AM EST [facility] Creatinine, Plasma 2.21(H) 0.70 - 1.20 mg/dL 01/06/2025 1:00 AM EST [facility] BUN/Creatinine Ratio 27 01/06/2025 1:00 AM EST [facility] Sodium, Plasma 132(L) 136 - 145 mmol/L 01/06/2025 1:00 AM EST [facility] Potassium, Plasma 4.9 3.6 - 4.9 mmol/L 01/06/2025 1:00 AM EST [facility] Chloride, Plasma 103 97 - 107 mmol/L 01/06/2025 1:00 AM EST [facility] CO2, Plasma 17(L) 22 - 29 mmol/L 01/06/2025 1:00 AM EST [facility] Anion Gap 12 6 - 16 mmol/L 01/06/2025 1:00 AM EST [facility] Total Calcium, Plasma 8.5(L) 8.9 - 10.2 mg/dL 01/06/2025 1:00 AM EST [facility] Total Protein 5.1(L) 6.3 - 7.9 g/dL 01/06/2025 1:00 AM EST [facility] Albumin, Plasma 3.2(L) 3.5 - 5.2 g/dL 01/06/2025 1:00 AM EST [facility] AST, Plasma 70(H) 10 - 50 U/L 01/06/2025 1:00 AM EST [facility] ALT, Plasma 116(H) 10 - 50 U/L 01/06/2025 1:00 AM EST [facility] Alkaline Phosphatase, Plasma 57 40 - 115 U/L 01/06/2025 1:00 AM EST [facility] Total Bilirubin, Plasma 4.2(H) 0.2 - 1.1 mg/dL 01/06/2025 1:00 AM EST [facility] eGFRcr 36.5 mL/min/1.7 3m*2 01/06/2025 1:00 AM EST [facility] Comment:Reported eGFRcr in m L/min/1.73m2 is based the CKD-EPI 2020 equation that does not use a race coefficient. Blood Venous blood specimen / Unknown Venipuncture / Unknown 01/06/2025 12:15 AM EST 01/06/2025 12:27 AM EST us Maciel Olson MD LAB BLOOD ORDERABLES Final Resul t [facility] [address] [place] [address] * (ABNORMAL) Prothrombin Time/INR (01/06/2025 12:15 AM EST) Prothrombin Time 17.8(H) 12.0 - 14.3 sec LAB COAGULATION METHOD 01/06/2025 12:49 AM EST [facility] INR 1.4(H) 0.9 - 1.1 LAB COAGULATION METHOD 01/06/2025 12:49 AM EST [facility] Blood Venous blood specimen / Unknown Venipuncture / Unknown 01/06/2025 12:15 AM EST 01/06/2025 12:28 AM EST [facility] - 01/06/2025 12:49 AM EST OPTIMAL INR RANGES FOR PATIENT ON ORAL ANTICOAGULANT THERAPY Prevention of venous thromboembolism INR 2.0 to 3.0 In patients with heart disease: Atrial fibrillation INR 2.0 to 3.0 Valvular heart disease INR 2.0 to 3.0 Tissue heart valves INR 2.0 to 3.0 Mechanical prosthetic valves INR 2.5 to 3.5 Prevention of recurrent OR INR 2.5 to 3.5 Satnam Beckford MD LAB BLOOD ORDERABLES Final Result [facility] [address] [place] [address] * (ABNORMAL) CBC W/O Differential (01/06/2025 12:15 AM EST) Pathologist [facility] WBC Count 6.50 3.70 - 10.30 10*3/uL LAB HEMATOLOGY METHOD 01/06/2025 12:39 AM EST [facility] RBC Count 2.92(L) 4.60 - 6.10 10*6/uL LAB HEMATOLOGY METHOD 01/06/2025 12:39 AM EST [facility] HGB 8.7(L) 13.7 - 17.5 g/dL LAB HEMATOLOGY METHOD 01/06/2025 12:39 AM EST [facility] HCT 25.7(L) 40.0 - 51.0 % LAB HEMATOLOGY METHOD 01/06/2025 12:39 AM EST [facility] Platelet Count 48(L) 155 - 369 10*3/uL LAB HEMATOLOGY METHOD 01/06/2025 12:39 AM EST [facility] MCV 88 79 - 98 fL LAB HEMATOLOGY METHOD 01/06/2025 12:39 AM EST [facility] MCH 29.8 26.0 - 32.0 pg LAB HEMATOLOGY METHOD 01/06/2025 12:39 AM EST [facility] MCHC 33.9 30.7 - 35.5 g/dL LAB HEMATOLOGY METHOD 01/06/2025 12:39 AM EST [facility] RDW 19.7(H) 11.5 - 14.5 % LAB HEMATOLOGY METHOD 01/06/2025 12:39 AM EST [facility] MPV 10.2 8.8 - 12.5 fL LAB HEMATOLOGY METHOD 01/06/2025 12:39 AM EST [facility] nRBC 0.0 <=0.0 per 100 WBCs LAB HEMATOLOGY METHOD 01/06/2025 12:39 AM EST [facility] Blood Venous blood specimen / Unknown Venipuncture / Unknown 01/06/2025 12:15 AM EST 01/06/2025 12:27 AM EST Satnam Beckford MD LAB BLOOD ORDERABLES Final Result [facility] [address] [place] [address] * (ABNORMAL) Prothrombin Time/INR (01/05/2025 8:05 PM EST) Prothrombin Time 18.1(H) 12.0 - 14.3 sec LAB COAGULATION METHOD 01/05/2025 8:55 PM EST [facility] INR 1.5(H) 0.9 - 1.1 LAB COAGULATION METHOD 01/05/2025 8:55 PM EST [facility] Blood Venous blood specimen / Unknown Venipuncture / Unknown 01/05/2025 8:05 PM EST 01/05/2025 8:32 PM EST [facility] - 01/05/2025 8:55 PM EST OPTIMAL INR RANGES FOR PATIENT ON ORAL ANTICOAGULANT THERAPY Prevention of venous thromboembolism INR 2.0 to 3.0 In patients with heart disease: Atrial fibrillation INR 2.0 to 3.0 Valvular heart disease INR 2.0 to 3.0 Tissue heart valves INR 2.0 to 3.0 Mechanical prosthetic valves INR 2.5 to 3.5 Prevention of recurrent OR INR 2.5 to 3.5 us Satnam Beckford MD LAB BLOOD ORDERABLES Final Result [facility] [address] [place] [address] * (ABNORMAL) CBC W/O Differential (01/05/2025 8:05 PM EST) WBC Count 7.09 3.70 - 10.30 10*3/uL LAB HEMATOLOGY METHOD 01/05/2025 8:39 PM EST [facility] RBC Count 2.99(L) 4.60 - 6.10 10*6/uL LAB HEMATOLOGY METHOD 01/05/2025 8:39 PM EST [facility] HGB 8.9(L) 13.7 - 17.5 g/dL LAB HEMATOLOGY METHOD 01/05/2025 8:39 PM EST [facility] HCT 26.0(L) 40.0 - 51.0 % LAB HEMATOLOGY METHOD 01/05/2025 8:39 PM EST [facility] Platelet Count 49(L) 155 - 369 10*3/uL LAB HEMATOLOGY METHOD 01/05/2025 8:39 PM EST [facility] MCV 87 79 - 98 fL LAB HEMATOLOGY METHOD 01/05/2025 8:39 PM EST [facility] MCH 29.8 26.0 - 32.0 pg LAB HEMATOLOGY METHOD 01/05/2025 8:39 PM EST [facility] MCHC 34.2 30.7 - 35.5 g/dL LAB HEMATOLOGY METHOD 01/05/2025 8:39 PM EST [facility] RDW 19.9(H) 11.5 - 14.5 % LAB HEMATOLOGY METHOD 01/05/2025 8:39 PM EST [facility] MPV 10.2 8.8 - 12.5 fL LAB HEMATOLOGY METHOD 01/05/2025 8:39 PM EST [facility] nRBC 0.0 <=0.0 per 100 WBCs LAB HEMATOLOGY METHOD 01/05/2025 8:39 PM EST [facility] Blood Venous blood specimen / Unknown Venipuncture / Unknown 01/05/2025 8:05 PM EST 01/05/2025 8:32 PM EST us Satnam Beckford MD LAB BLOOD ORDERABLES Final Result [facility] [address] [place] [address] * (ABNORMAL) POCT glucose meter (01/05/2025 6:31 PM EST) POCT Glucose 125(H) 74 - 99 mg/dL 01/05/2025 6:33 PM EST [facility] Comment:Accuracy of a glucos e result obtained from a capillary whole blood specimen relies upon adequate, non-compromised capillary blood flow. If the capillary glucose result is not consistent with the patient's clinical signs and symptoms, glucose testing should be repeated with either an arterial or venous sample on the glucometer or sent to the main labortory for testing. Comment 01/05/2025 6:33 PM EST [facility] Shearing Machine Operator ID Leo Aguiar 6:33 PM EST [facility] Device ID [id number] 01/05/2025 6:33 PM EST [facility] Specimen Type POC Capillary 01/05/2025 6:33 PM EST [facility] Blood Capillary blood specimen / Unknown 01/05/2025 6:31 PM EST 01/05/2025 6:33 PM EST us Maciel Olson MD LAB POINT OF CARE TE ST DOCKED DEVICE UNSOLICITED RESULTS Final Result Performing Organization Address City/[facility] Co de Phone Number [facility] [address] [place] [address] * (ABNORMAL) POCT glucose meter (01/05/2025 3:51 PM EST) POCT Glucose 109(H) 74 - 99 mg/dL 01/05/2025 3:53 PM EST [facility] Comment:Accuracy of a glucos e result obtained from a capillary whole blood specimen relies upon adequate, non-compromised capillary blood flow. If the capillary glucose result is not consistent with the patient's clinical signs and symptoms, glucose testing should be repeated with either an arterial or venous sample on the glucometer or sent to the main labortory for testing. Comment 01/05/2025 3:53 PM EST [facility] Shearing Machine Operator ID Leo Aguiar 3:53 PM EST [facility] Device ID [id number] 01/05/2025 3:53 PM EST [facility] Specimen Type POC Arterial 01/05/2025 3:53 PM EST [facility] Blood Arterial blood specimen / Unknown 01/05/2025 3:51 PM EST 01/05/2025 3:53 PM EST us Maciel Olson MD LAB POINT OF CARE TE ST DOCKED DEVICE UNSOLICITED RESULTS Final Result Performing Organization Address City/[facility]/ZIP Co de Phone Number [facility] [address] [place] [address] * (ABNORMAL) Phosphorus, Plasma (01/05/2025 3:49 PM EST) Phosphorus, Plasma 6.1(H) 2.5 - 4.5 mg/dL 01/05/2025 4:39 PM EST [facility] Blood Arterial blood specimen / Unknown Arterial Puncture / Unknown 01/05/2025 3:49 PM EST 01/05/2025 4:07 PM EST us Maciel Olson MD LAB BLOOD ORDERABLES Final Resul t Performing Organization Address City/[facility]/ZIP Co de Phone Number [facility] [address] [place] [address] * (ABNORMAL) Magnesium, Plasma (01/05/2025 3:49 PM EST) Magnesium, Plasma 2.6(H) 1.9 - 2.4 mg/dL 01/05/2025 4:39 PM EST [facility] Blood Arterial blood specimen / Unknown Arterial Puncture / Unknown 01/05/2025 3:49 PM EST 01/05/2025 4:07 PM EST us Maciel Olson MD LAB BLOOD ORDERABLES Final Resul t Performing Organization Address City/[facility]/ZIP Co de Phone Number [facility] [address] [place] [address] * (ABNORMAL) Comprehensive metabolic panel (01/05/2025 3:49 PM EST) Glucose, Plasma 99 74 - 99 mg/dL 01/05/2025 4:39 PM [facility] BUN, Plasma 56(H) 7 - 21 mg/dL 01/05/2025 4:39 PM [facility] Creatinine, Plasma 2.05(H) 0.70 - 1.20 mg/dL 01/05/2025 4:39 PM [facility] BUN/Creatinine Ratio 27 01/05/2025 4:39 PM [facility] Sodium, Plasma 134(L) 136 - 145 mmol/L 01/05/2025 4:39 PM [facility] Potassium, Plasma 4.7 3.6 - 4.9 mmol/L 01/05/2025 4:39 PM [facility] Chloride, Plasma 105 97 - 107 mmol/L 01/05/2025 4:39 PM [facility] CO2, Plasma 16(L) 22 - 29 mmol/L 01/05/2025 4:39 PM [facility] Anion Gap 13 6 - 16 mmol/L 01/05/2025 4:39 PM [facility] Total Calcium, Plasma 8.7(L) 8.9 - 10.2 mg/dL 01/05/2025 4:39 PM [facility] Total Protein 5.3(L) 6.3 - 7.9 g/dL 01/05/2025 4:39 PM [facility] Albumin, Plasma 3.5 3.5 - 5.2 g/dL 01/05/2025 4:39 PM [facility] AST, Plasma 90(H) 10 - 50 U/L 01/05/2025 4:39 PM [facility] [facility] ALT, Plasma 127(H) 10 - 50 U/L 01/05/2025 4:39 PM [facility] Alkaline Phosphatase, Plasma 61 40 - 115 U/L 01/05/2025 4:39 PM [facility] Total Bilirubin, Plasma 4.8(H) 0.2 - 1.1 mg/dL 01/05/2025 4:39 PM [facility] eGFRcr 40.0 mL/min/1.7 3m*2 01/05/2025 4:39 PM EST [facility] Comment:Reported eGFRcr in m L/min/1.73m2 is based the CKD-EPI 2020 equation that does not use a race coefficient. Blood Arterial blood specimen / Unknown Arterial Puncture / Unknown 01/05/2025 3:49 PM EST 01/05/2025 4:07 PM EST us Maciel Olson MD LAB BLOOD ORDERABLES Final Resul t Performing Organization Address City/[facility]/ZIP Co de Phone Number [facility] [address] [place] [address] * (ABNORMAL) Prothrombin Time/INR (01/05/2025 3:49 PM EST) Prothrombin Time 18.8(H) 12.0 - 14.3 sec LAB COAGULATION METHOD 01/05/2025 4:36 PM EST [facility] INR 1.5(H) 0.9 - 1.1 LAB COAGULATION METHOD 01/05/2025 4:36 PM EST [facility] Blood Arterial blood specimen / Unknown Arterial Puncture / Unknown 01/05/2025 3:49 PM EST 01/05/2025 4:07 PM EST Narrative [facility] - 01/05/2025 4:36 PM EST OPTIMAL INR RANGES FOR PATIENT ON ORAL ANTICOAGULANT THERAPY Prevention of venous thromboembolism INR 2.0 to 3.0 In patients with heart disease: Atrial fibrillation INR 2.0 to 3.0 Valvular heart disease INR 2.0 to 3.0 Tissue heart valves INR 2.0 to 3.0 Mechanical prosthetic valves INR 2.5 to 3.5 Prevention of recurrent OR INR 2.5 to 3.5 us Satnam Beckford MD LAB BLOOD ORDERABLES Final Result Performing Organization Address City/[facility]/ZIP Co de Phone Number [facility] [address] [place] [address] * (ABNORMAL) CBC W/O Differential (01/05/2025 3:49 PM EST) WBC Count 7.36 3.70 - 10.30 10*3/uL LAB HEMATOLOGY METHOD 01/05/2025 4:39 PM EST [facility] RBC Count 2.86(L) 4.60 - 6.10 10*6/uL LAB HEMATOLOGY METHOD 01/05/2025 4:39 PM EST [facility] HGB 8.7(L) 13.7 - 17.5 g/dL LAB HEMATOLOGY METHOD 01/05/2025 4:39 PM EST [facility] HCT 25.3(L) 40.0 - 51.0 % LAB HEMATOLOGY METHOD 01/05/2025 4:39 PM EST [facility] Platelet Count 42(L) 155 - 369 10*3/uL LAB HEMATOLOGY METHOD 01/05/2025 4:39 PM EST [facility] MCV 89 79 - 98 fL LAB HEMATOLOGY METHOD 01/05/2025 4:39 PM EST [facility] MCH 30.4 26.0 - 32.0 pg LAB HEMATOLOGY METHOD 01/05/2025 4:39 PM EST [facility] MCHC 34.4 30.7 - 35.5 g/dL LAB HEMATOLOGY METHOD 01/05/2025 4:39 PM EST [facility] RDW 19.8(H) 11.5 - 14.5 % LAB HEMATOLOGY METHOD 01/05/2025 4:39 PM EST [facility] MPV 10.4 8.8 - 12.5 fL LAB HEMATOLOGY METHOD 01/05/2025 4:39 PM EST [facility] nRBC 0.0 <=0.0 per 100 WBCs LAB HEMATOLOGY METHOD 01/05/2025 4:39 PM EST [facility] Blood Arterial blood specimen / Unknown Arterial Puncture / Unknown 01/05/2025 3:49 PM EST 01/05/2025 4:22 PM EST us Satnam Beckford MD LAB BLOOD ORDERABLES Final Result [facility] [address] [place] [address] * XR Abdomen 1 View (01/05/2025 12:41 PM EST) Anatomical Region Laterality Modality Body Digital Radiogra phy Impressions 01/05/2025 2:18 PM EST Gas-filled mildly dilated small and large bowel loops likely represent bowel ileus. CRITICAL RESULT: No. COMMUNICATION: Per this written report. By electronically signing this report, I, the attending physician, attest that I have personally reviewed the images/data for the above examination(s) and agree with the final edited report. Drafted by Wes Velez MD on 01/05/2025 1:28 PM Final report signed by Hermila Tapia MD on 01/05/2025 2:18 PM Narrative 01/05/2025 2:18 PM EST CLINICAL INDICATION: eval for ileus TECHNIQUE: XR ABDOMEN 1 VIEW COMPARISON: Abdominal radiograph 01/03/2025 FINDINGS: Interval removal of nasogastric tube. Moderate gaseous distention of the stomach. Moderate gas in mildly distended large and small bowel, slightly increased from prior. Procedure Note Hermila Tpaia MD - 01/05/2025 CLINICAL INDICATION: eval for ileus TECHNIQUE: XR ABDOMEN 1 VIEW COMPARISON: Abdominal radiograph 01/03/2025 FINDINGS: Interval removal of nasogastric tube. Moderate gaseous distention of thestomach. Moderate gas in mildly distended large and small bowel, slightlyincreased from prior. IMPRESSION: Gas-filled mildly dilated small and large bowel loops likely representbowel ileus. CRITICAL RESULT: No. COMMUNICATION: Per this written report. By electronically signing this report, I, the attending physician, attestthat I have personally reviewed the images/data for the aboveexamination(s) and agree with the final edited report. Drafted by Wes Velez MD on 01/05/2025 1:28 PM Final report signed by Hermila Tapia MD on 01/05/2025 2:18 PM us Maciel Olson MD IMG XR PROCEDURES Final Result * POCT glucose meter (01/05/2025 12:03 PM EST) POCT Glucose 98 74 - 99 mg/dL 01/05/2025 12:04 PM EST [facility] Comment:Accuracy of a glucos e result obtained from a capillary whole blood specimen relies upon adequate, non-compromised capillary blood flow. If the capillary glucose result is not consistent with the patient's clinical signs and symptoms, glucose testing should be repeated with either an arterial or venous sample on the glucometer or sent to the main labortory for testing. Comment 01/05/2025 12:04 PM EST [facility] Shearing Machine Operator ID Leo Aguiar 12:04 PM EST [facility] Device ID [id number] 01/05/2025 12:04 PM EST [facility] Specimen Type POC Venous 01/05/2025 12:04 PM EST [facility] Blood Venous blood specimen / Unknown 01/05/2025 12:03 PM EST 01/05/2025 12:04 PM EST us Maciel Olson MD LAB POINT OF CARE TE ST DOCKED DEVICE UNSOLICITED RESULTS Final Result Performing Organization Address City/[facility] Co de Phone Number [facility] [address] [place] [address] * (ABNORMAL) Prothrombin Time/INR (01/05/2025 12:00 PM EST) Pathologist [facility] Prothrombin Time 18.9(H) 12.0 - 14.3 sec LAB COAGULATION METHOD 01/05/2025 12:34 PM EST [facility] INR 1.5(H) 0.9 - 1.1 LAB COAGULATION METHOD 01/05/2025 12:34 PM EST [facility] Blood Arterial blood specimen / Unknown Arterial Puncture / Unknown 01/05/2025 12:00 PM EST 01/05/2025 12:11 PM EST Narrative [facility] - 01/05/2025 12:34 PM EST OPTIMAL INR RANGES FOR PATIENT ON ORAL ANTICOAGULANT THERAPY Prevention of venous thromboembolism INR 2.0 to 3.0 In patients with heart disease: Atrial fibrillation INR 2.0 to 3.0 Valvular heart disease INR 2.0 to 3.0 Tissue heart valves INR 2.0 to 3.0 Mechanical prosthetic valves INR 2.5 to 3.5 Prevention of recurrent OR INR 2.5 to 3.5 us Satnam Beckford MD LAB BLOOD ORDERABLES Final Result [facility] [address] [place] [address] * (ABNORMAL) CBC W/O Differential (01/05/2025 12:00 PM EST) WBC Count 8.36 3.70 - 10.30 10*3/uL LAB HEMATOLOGY METHOD 01/05/2025 12:26 PM EST [facility] RBC Count 2.90(L) 4.60 - 6.10 10*6/uL LAB HEMATOLOGY METHOD 01/05/2025 12:26 PM EST [facility] HGB 8.9(L) 13.7 - 17.5 g/dL LAB HEMATOLOGY METHOD 01/05/2025 12:26 PM EST [facility] HCT 25.9(L) 40.0 - 51.0 % LAB HEMATOLOGY METHOD 01/05/2025 12:26 PM EST [facility] Platelet Count 44(L) 155 - 369 10*3/uL LAB HEMATOLOGY METHOD 01/05/2025 12:26 PM EST [facility] MCV 89 79 - 98 fL LAB HEMATOLOGY METHOD 01/05/2025 12:26 PM EST [facility] MCH 30.7 26.0 - 32.0 pg LAB HEMATOLOGY METHOD 01/05/2025 12:26 PM EST [facility] MCHC 34.4 30.7 - 35.5 g/dL LAB HEMATOLOGY METHOD 01/05/2025 12:26 PM EST [facility] RDW 19.7(H) 11.5 - 14.5 % LAB HEMATOLOGY METHOD 01/05/2025 12:26 PM EST [facility] MPV 10.1 8.8 - 12.5 fL LAB HEMATOLOGY METHOD 01/05/2025 12:26 PM EST [facility] nRBC 0.0 <=0.0 per 100 WBCs LAB HEMATOLOGY METHOD 01/05/2025 12:26 PM EST [facility] Blood Arterial blood specimen / Unknown Arterial Puncture / Unknown 01/05/2025 12:00 PM EST 01/05/2025 12:19 PM EST us Satnam Beckford MD LAB BLOOD ORDERABLES Final Result [facility] [address] [place] [address] * GA CRITICAL CARE, E/M 30-74 MINUTES (01/05/2025 11:03 AM EST) Narrative Camilla Soto APRN, DNP - 01/05/2025 11:03 AM EST Camilla Soto APRN, DNP 01/05/2025 11:13 AM Critical Care Performed by: Camilla Soto APRN, DNP Authorized by: Camilla Soto APRN, DNP Critical care provider statement: Critical care time (minutes): 70 Critical care time was exclusive of: Separately billable procedures and treating other patients Critical care was time spent personally by me on the following activities: Development of treatment plan with patient or surrogate, discussions with consultants, discussions with primary provider, evaluation of patient's response to treatment, examination of patient, ordering and performing treatments and interventions, ordering and review of laboratory studies and ordering and review of radiographic studies Camilla Soto APRN, DNP IN CLINIC/BEDSIDE ORDERAB LES Final Result * (ABNORMAL) Comprehensive metabolic panel (01/05/2025 8:39 AM EST) Glucose, Plasma 103(H) 74 - 99 mg/dL 01/05/2025 9:14 AM EST [facility] BUN, Plasma 49(H) 7 - 21 mg/dL 01/05/2025 9:14 AM EST [facility] Creatinine, Plasma 1.90(H) 0.70 - 1.20 mg/dL 01/05/2025 9:14 AM EST [facility] BUN/Creatinine Ratio 26 01/05/2025 9:14 AM EST [facility] Sodium, Plasma 136 136 - 145 mmol/L 01/05/2025 9:14 AM EST [facility] Potassium, Plasma 4.7 3.6 - 4.9 mmol/L 01/05/2025 9:14 AM EST [facility] Chloride, Plasma 106 97 - 107 mmol/L 01/05/2025 9:14 AM EST [facility] CO2, Plasma 16(L) 22 - 29 mmol/L 01/05/2025 9:14 AM EST [facility] Anion Gap 14 6 - 16 mmol/L 01/05/2025 9:14 AM EST [facility] Total Calcium, Plasma 8.8(L) 8.9 - 10.2 mg/dL 01/05/2025 9:14 AM EST [facility] Total Protein 5.5(L) 6.3 - 7.9 g/dL 01/05/2025 9:14 AM EST [facility] Albumin, Plasma 3.7 3.5 - 5.2 g/dL 01/05/2025 9:14 AM EST [facility] AST, Plasma 110(H) 10 - 50 U/L 01/05/2025 9:14 AM EST [facility] ALT, Plasma 138(H) 10 - 50 U/L 01/05/2025 9:14 AM EST [facility] Alkaline Phosphatase, Plasma 61 40 - 115 U/L 01/05/2025 9:14 AM EST [facility] Total Bilirubin, Plasma 5.4(H) 0.2 - 1.1 mg/dL 01/05/2025 9:14 AM EST [facility] eGFRcr 43.8 mL/min/1.7 3m*2 01/05/2025 9:14 AM EST [facility] Comment:Reported eGFRcr in m L/min/1.73m2 is based the CKD-EPI 2020 equation that does not use a race coefficient. Blood Arterial blood specimen / Unknown Arterial Puncture / Unknown 01/05/2025 8:39 AM EST 01/05/2025 8:46 AM EST Satnam Beckford MD LAB BLOOD ORDERABLES Final Result [facility] [address] [place] [address] * (ABNORMAL) Magnesium, Plasma (01/05/2025 8:39 AM EST) Magnesium, Plasma 2.6(H) 1.9 - 2.4 mg/dL 01/05/2025 9:14 AM EST [facility] Blood Arterial blood specimen / Unknown Arterial Puncture / Unknown 01/05/2025 8:39 AM EST 01/05/2025 8:46 AM EST Satnam Beckford MD LAB BLOOD ORDERABLES Final Result [facility] [address] [place] [address] * (ABNORMAL) Phosphorus, Plasma (01/05/2025 8:39 AM EST) Phosphorus, Plasma 6.0(H) 2.5 - 4.5 mg/dL 01/05/2025 9:14 AM EST [facility] Blood Arterial blood specimen / Unknown Arterial Puncture / Unknown 01/05/2025 8:39 AM EST 01/05/2025 8:46 AM EST Satnam Beckford MD LAB BLOOD ORDERABLES Final Result Performing Organization Address [facility] Co de Phone Number [facility] [address] [place] [address] * (ABNORMAL) Prothrombin Time/INR (01/05/2025 8:39 AM EST) Prothrombin Time 18.6(H) 12.0 - 14.3 sec LAB COAGULATION METHOD 01/05/2025 9:32 AM EST [facility] INR 1.5(H) 0.9 - 1.1 LAB COAGULATION METHOD 01/05/2025 9:32 AM EST [facility] Blood Arterial blood specimen / Unknown Arterial Puncture / Unknown 01/05/2025 8:39 AM EST 01/05/2025 8:46 AM EST Narrative [facility] - 01/05/2025 9:32 AM EST OPTIMAL INR RANGES FOR PATIENT ON ORAL ANTICOAGULANT THERAPY Prevention of venous thromboembolism INR 2.0 to 3.0 In patients with heart disease: Atrial fibrillation INR 2.0 to 3.0 Valvular heart disease INR 2.0 to 3.0 Tissue heart valves INR 2.0 to 3.0 Mechanical prosthetic valves INR 2.5 to 3.5 Prevention of recurrent OR INR 2.5 to 3.5 Satnam Beckford MD LAB BLOOD ORDERABLES Final Result [facility] [address] [place] [address] * (ABNORMAL) CBC W/O Differential (01/05/2025 8:39 AM EST) WBC Count 8.94 3.70 - 10.30 10*3/uL LAB HEMATOLOGY METHOD 01/05/2025 8:54 AM EST [facility] RBC Count 2.92(L) 4.60 - 6.10 10*6/uL LAB HEMATOLOGY METHOD 01/05/2025 8:54 AM EST [facility] HGB 8.8(L) 13.7 - 17.5 g/dL LAB HEMATOLOGY METHOD 01/05/2025 8:54 AM EST [facility] HCT 25.5(L) 40.0 - 51.0 % LAB HEMATOLOGY METHOD 01/05/2025 8:54 AM EST [facility] Platelet Count 48(L) 155 - 369 10*3/uL LAB HEMATOLOGY METHOD 01/05/2025 8:54 AM EST [facility] MCV 87 79 - 98 fL LAB HEMATOLOGY METHOD 01/05/2025 8:54 AM EST [facility] MCH 30.1 26.0 - 32.0 pg LAB HEMATOLOGY METHOD 01/05/2025 8:54 AM EST [facility] MCHC 34.5 30.7 - 35.5 g/dL LAB HEMATOLOGY METHOD 01/05/2025 8:54 AM EST [facility] RDW 19.5(H) 11.5 - 14.5 % LAB HEMATOLOGY METHOD 01/05/2025 8:54 AM EST [facility] MPV 10.2 8.8 - 12.5 fL LAB HEMATOLOGY METHOD 01/05/2025 8:54 AM EST [facility] nRBC 0.0 <=0.0 per 100 WBCs LAB HEMATOLOGY METHOD 01/05/2025 8:54 AM EST [facility] Blood Arterial blood specimen / Unknown Arterial Puncture / Unknown 01/05/2025 8:39 AM EST 01/05/2025 8:46 AM EST us Satnam Beckford MD LAB BLOOD ORDERABLES Final Result [facility] [address] [place] [address] * (ABNORMAL) POCT glucose meter (01/05/2025 8:38 AM EST) POCT Glucose 107(H) 74 - 99 mg/dL 01/05/2025 8:40 AM EST [facility] Comment:Accuracy of a glucos e result obtained from a capillary whole blood specimen relies upon adequate, non-compromised capillary blood flow. If the capillary glucose result is not consistent with the patient's clinical signs and symptoms, glucose testing should be repeated with either an arterial or venous sample on the glucometer or sent to the main labortory for testing. Comment 01/05/2025 8:40 AM EST [facility] Shearing Machine Operator ID Leo Aguiar 8:40 AM EST [facility] Device ID [id number] 01/05/2025 8:40 AM EST [facility] Specimen Type POC Capillary 01/05/2025 8:40 AM EST [facility] Blood Capillary blood specimen / Unknown 01/05/2025 8:38 AM EST 01/05/2025 8:40 AM EST Maciel Olson MD LAB POINT OF CARE TE ST DOCKED DEVICE UNSOLICITED RESULTS Final Result Performing Organization Address City/State/[facility] Co de Phone Number [facility] [address] [place] [address] * Transfuse RBC (01/05/2025 5:53 AM EST) Kelvin Zapata APRN BLOOD TRANSFUSION ORDERAB LES Final Result * Transfuse RBC: 1 Units (01/05/2025 5:53 AM EST) Kelvin Zapata APRN BLOOD TRANSFUSION ORDERAB LES Final Result * Tacrolimus (01/05/2025 5:49 AM EST) Tacrolimus 4.9 4.0 - 17.0 ng/mL 01/05/2025 11:44 AM EST [facility] Comment: Tacrolimus therapeutic range: Initial (<3 mo.) Maintenance Kidney 8-13 ng/mL 4-8 ng/mL Liver 8-13 ng/mL 4-8 ng/mL Heart 8-15 ng/mL 7-13 ng/mL Lung;Heart/Lung 8-17 ng/mL 8-13 ng/mL Blood Arterial blood specimen / Unknown Arterial Puncture / Unknown 01/05/2025 5:49 AM EST 01/05/2025 6:00 AM EST Narrative [facility] - 01/05/2025 11:44 AM EST Test performed by LC-MS/MS at the [facility]. This test was developed and its performance characteristics determined by [facility]. It has not been cleared or approved by the FDA. The laboratory is regulated under CLIA as qualified to perform high-complexity testing. This test is used for clinical purposes. Test performed by LC-MS/MS at the [facility]. This test was developed and its performance characteristics determined by [facility]. It has not been cleared or approved by the FDA. The laboratory is regulated under CLIA as qualified to perform high-complexity testing. This test is used for clinical purposes. Satnam Beckford MD LAB BLOOD ORDERABLES Final Result [facility] [address] [place] [address] * (ABNORMAL) POCT glucose meter (01/05/2025 5:44 AM EST) POCT Glucose 113(H) 74 - 99 mg/dL 01/05/2025 5:45 AM EST [facility] Comment:Accuracy of a glucos e result obtained from a capillary whole blood specimen relies upon adequate, non-compromised capillary blood flow. If the capillary glucose result is not consistent with the patient's clinical signs and symptoms, glucose testing should be repeated with either an arterial or venous sample on the glucometer or sent to the main labortory for testing. Comment 01/05/2025 5:45 AM EST [facility] Shearing Machine Operator ID Shaka Burciaga 01/05/2025 5:45 AM EST [facility] Device ID [id number] 01/05/2025 5:45 AM EST [facility] Specimen Type POC Arterial 01/05/2025 5:45 AM EST [facility] Blood Arterial blood specimen / Unknown 01/05/2025 5:44 AM EST 01/05/2025 5:45 AM EST Satnam Beckford MD LAB POINT OF CARE T EST DOCKED DEVICE UNSOLICITED RESULTS Final Result [facility] [address] [place] [address] * XR Chest 1 View (01/05/2025 5:22 AM EST) Anatomical Region Laterality Modality Chest Digital Radiogra phy Impressions 01/05/2025 9:32 AM EST Interval removal of the Brayton-Héctor catheter. Persistent hypoventilatory changes with slight increase in right basal opacities, likely atelectasis with possible superimposed airspace disease. Improved aeration of left lung base. CRITICAL RESULT: No. COMMUNICATION: Per this written report. By electronically signing this report, I, the attending physician, attest that I have personally reviewed the images/data for the above examination(s) and agree with the final edited report. Drafted by Steven Garcia MD on 01/05/2025 8:20 AM Final report signed by Aditya Barrios MD on 01/05/2025 9:32 AM Narrative 01/05/2025 9:32 AM EST CLINICAL INDICATION: S/P Liver TXP - evaluation of lung santana TECHNIQUE: Single AP view of chest. COMPARISON: Chest radiograph 01/04/2025. FINDINGS: Interval removal of the Brayton-Héctor catheter. Otherwise, stable support hardware. The contours and cardiac silhouette are stable. Persistent low lung volumes. Right basal opacities is slightly increased. Decreased left basal airspace opacities. Unchanged small left pleural effusion. No pneumothorax. Procedure Note Aditya Barrios MD - 01/05/2025 CLINICAL INDICATION: S/P Liver TXP - evaluation of lung santana TECHNIQUE: Single AP view of chest. COMPARISON: Chest radiograph 01/04/2025. FINDINGS: Interval removal of the Brayton-Héctor catheter. Otherwise, stable supporthardware. The contours and cardiac silhouette are stable. Persistent lowlung volumes. Right basal opacities is slightly increased. Decreased leftbasal airspace opacities. Unchanged small left pleural effusion. Nopneumothorax. IMPRESSION: Interval removal of the Brayton-Héctor catheter. Persistent hypoventilatory changes with slight increase in right basalopacities, likely atelectasis with possible superimposed airspace disease.Improved aeration of left lung base. CRITICAL RESULT: No. COMMUNICATION: Per this written report. By electronically signing this report, I, the attending physician, attestthat I have personally reviewed the images/data for the aboveexamination(s) and agree with the final edited report. Drafted by Steven Garcia MD on 01/05/2025 8:20 AM Final report signed by Aditya Barrios MD on 01/05/2025 9:32 AM Satnam Beckford MD IMG XR PROCEDURES Final Res ult * Prepare Leukocyte Reduced RBC: 1 Units (01/05/2025 4:19 AM EST) Product Code [id number] BLOO D BANK Dispense Status Transfused BLOOD BANK Blood Expiration Date [id number] BLOOD BANK Unit Number [id number] B LOOD BANK Product Blood Type 0600 BLOOD BANK Blood Type A- BLOOD BANK Crossmatch Compatible BLOOD BANK Other Kelvin Zapata APRN BLOOD BANK PRODUCT ORDERA BLES Final Result Performing Organization Address City/State/[facility] Co de Phone Number BLOOD BANK [address] [place] [address], * (ABNORMAL) Prothrombin Time/INR (01/05/2025 3:54 AM EST) Prothrombin Time 19.4(H) 12.0 - 14.3 sec LAB COAGULATION METHOD 01/05/2025 4:15 AM EST [facility] INR 1.6(H) 0.9 - 1.1 LAB COAGULATION METHOD 01/05/2025 4:15 AM EST [facility] Blood Arterial blood specimen / Unknown Arterial Puncture / Unknown 01/05/2025 3:54 AM EST 01/05/2025 4:02 AM EST Narrative [facility] - 01/05/2025 4:15 AM EST OPTIMAL INR RANGES FOR PATIENT ON ORAL ANTICOAGULANT THERAPY Prevention of venous thromboembolism INR 2.0 to 3.0 In patients with heart disease: Atrial fibrillation INR 2.0 to 3.0 Valvular heart disease INR 2.0 to 3.0 Tissue heart valves INR 2.0 to 3.0 Mechanical prosthetic valves INR 2.5 to 3.5 Prevention of recurrent OR INR 2.5 to 3.5 Satnam Beckford MD LAB BLOOD ORDERABLES Final Result [facility] [address] [place] [address] * (ABNORMAL) CBC W/O Differential (01/05/2025 3:54 AM EST) WBC Count 8.52 3.70 - 10.30 10*3/uL LAB HEMATOLOGY METHOD 01/05/2025 4:15 AM EST [facility] RBC Count 2.59(L) 4.60 - 6.10 10*6/uL LAB HEMATOLOGY METHOD 01/05/2025 4:15 AM EST [facility] HGB 7.8(L) 13.7 - 17.5 g/dL LAB HEMATOLOGY METHOD 01/05/2025 4:15 AM EST [facility] HCT 22.9(L) 40.0 - 51.0 % LAB HEMATOLOGY METHOD 01/05/2025 4:15 AM EST [facility] Platelet Count 48(L) 155 - 369 10*3/uL LAB HEMATOLOGY METHOD 01/05/2025 4:15 AM EST [facility] MCV 88 79 - 98 fL LAB HEMATOLOGY METHOD 01/05/2025 4:15 AM EST [facility] MCH 30.1 26.0 - 32.0 pg LAB HEMATOLOGY METHOD 01/05/2025 4:15 AM EST [facility] MCHC 34.1 30.7 - 35.5 g/dL LAB HEMATOLOGY METHOD 01/05/2025 4:15 AM EST [facility] RDW 19.7(H) 11.5 - 14.5 % LAB HEMATOLOGY METHOD 01/05/2025 4:15 AM EST [facility] MPV 9.9 8.8 - 12.5 fL LAB HEMATOLOGY METHOD 01/05/2025 4:15 AM EST [facility] nRBC 0.0 <=0.0 per 100 WBCs LAB HEMATOLOGY METHOD 01/05/2025 4:15 AM EST [facility] Blood Arterial blood specimen / Unknown Arterial Puncture / Unknown 01/05/2025 3:54 AM EST 01/05/2025 4:02 AM EST Satnam Beckford MD LAB BLOOD ORDERABLES Final Result [facility] [address] [place] [address] * (ABNORMAL) Comprehensive metabolic panel (01/05/2025 12:06 AM EST) Glucose, Plasma 134(H) 74 - 99 mg/dL 01/05/2025 12:56 AM EST [facility] BUN, Plasma 44(H) 7 - 21 mg/dL 01/05/2025 12:56 AM EST [facility] Creatinine, Plasma 1.84(H) 0.70 - 1.20 mg/dL 01/05/2025 12:56 AM EST [facility] BUN/Creatinine Ratio 24 01/05/2025 12:56 AM EST [facility] Sodium, Plasma 134(L) 136 - 145 mmol/L 01/05/2025 12:56 AM EST [facility] Potassium, Plasma 4.6 3.6 - 4.9 mmol/L 01/05/2025 12:56 AM EST [facility] Chloride, Plasma 105 97 - 107 mmol/L 01/05/2025 12:56 AM EST [facility] CO2, Plasma 16(L) 22 - 29 mmol/L 01/05/2025 12:56 AM EST [facility] Anion Gap 13 6 - 16 mmol/L 01/05/2025 12:56 AM EST [facility] Total Calcium, Plasma 8.5(L) 8.9 - 10.2 mg/dL 01/05/2025 12:56 AM EST [facility] [facility] Total Protein 5.4(L) 6.3 - 7.9 g/dL 01/05/2025 12:56 AM EST [facility] Albumin, Plasma 3.4(L) 3.5 - 5.2 g/dL 01/05/2025 12:56 AM EST [facility] AST, Plasma 150(H) 10 - 50 U/L 01/05/2025 12:56 AM EST [facility] ALT, Plasma 161(H) 10 - 50 U/L 01/05/2025 12:56 AM EST [facility] Alkaline Phosphatase, Plasma 68 40 - 115 U/L 01/05/2025 12:56 AM EST [facility] Total Bilirubin, Plasma 5.2(H) 0.2 - 1.1 mg/dL 01/05/2025 12:56 AM EST [facility] eGFRcr 45.5 mL/min/1.7 3m*2 01/05/2025 12:56 AM EST [facility] Comment:Reported eGFRcr in m L/min/1.73m2 is based the CKD-EPI 2020 equation that does not use a race coefficient. Blood Arterial blood specimen / Unknown Arterial Puncture / Unknown 01/05/2025 12:06 AM EST 01/05/2025 12:26 AM EST Satnam Beckford MD LAB BLOOD ORDERABLES Final Result Performing Organization Address City/[facility]/ZIP Co de Phone Number [facility] [address] [place] [address] * Magnesium, Plasma (01/05/2025 12:06 AM EST) Magnesium, Plasma 2.4 1.9 - 2.4 mg/dL 01/05/2025 12:56 AM EST [facility] Blood Arterial blood specimen / Unknown Arterial Puncture / Unknown 01/05/2025 12:06 AM EST 01/05/2025 12:26 AM EST Satnam Beckford MD LAB BLOOD ORDERABLES Final Result [facility] [address] [place] [address] * (ABNORMAL) Phosphorus, Plasma (01/05/2025 12:06 AM EST) Phosphorus, Plasma 6.1(H) 2.5 - 4.5 mg/dL 01/05/2025 12:56 AM EST [facility] Blood Arterial blood specimen / Unknown Arterial Puncture / Unknown 01/05/2025 12:06 AM EST 01/05/2025 12:26 AM EST Satnam Beckford MD LAB BLOOD ORDERABLES Final Result Performing Organization Address City/[facility]/ZIP Co de Phone Number [facility] [address] [place] [address] * (ABNORMAL) Prothrombin Time/INR (01/05/2025 12:06 AM EST) Prothrombin Time 19.2(H) 12.0 - 14.3 sec LAB COAGULATION METHOD 01/05/2025 12:44 AM EST [facility] INR 1.6(H) 0.9 - 1.1 LAB COAGULATION METHOD 01/05/2025 12:44 AM EST [facility] Blood Arterial blood specimen / Unknown Arterial Puncture / Unknown 01/05/2025 12:06 AM EST 01/05/2025 12:26 AM EST Narrative [facility] - 01/05/2025 12:44 AM EST OPTIMAL INR RANGES FOR PATIENT ON ORAL ANTICOAGULANT THERAPY Prevention of venous thromboembolism INR 2.0 to 3.0 In patients with heart disease: Atrial fibrillation INR 2.0 to 3.0 Valvular heart disease INR 2.0 to 3.0 Tissue heart valves INR 2.0 to 3.0 Mechanical prosthetic valves INR 2.5 to 3.5 Prevention of recurrent OR INR 2.5 to 3.5 Satnam Beckford MD LAB BLOOD ORDERABLES Final Result [facility] [address] [place] [address] * (ABNORMAL) CBC W/O Differential (01/05/2025 12:06 AM EST) WBC Count 10.02 3.70 - 10.30 10*3/uL LAB HEMATOLOGY METHOD 01/05/2025 12:37 AM EST [facility] RBC Count 2.70(L) 4.60 - 6.10 10*6/uL LAB HEMATOLOGY METHOD 01/05/2025 12:37 AM EST [facility] HGB 8.2(L) 13.7 - 17.5 g/dL LAB HEMATOLOGY METHOD 01/05/2025 12:37 AM EST [facility] HCT 23.8(L) 40.0 - 51.0 % LAB HEMATOLOGY METHOD 01/05/2025 12:37 AM EST [facility] Platelet Count 56(L) 155 - 369 10*3/uL LAB HEMATOLOGY METHOD 01/05/2025 12:37 AM EST [facility] MCV 88 79 - 98 fL LAB HEMATOLOGY METHOD 01/05/2025 12:37 AM EST [facility] MCH 30.4 26.0 - 32.0 pg LAB HEMATOLOGY METHOD 01/05/2025 12:37 AM EST [facility] MCHC 34.5 30.7 - 35.5 g/dL LAB HEMATOLOGY METHOD 01/05/2025 12:37 AM EST [facility] RDW 19.9(H) 11.5 - 14.5 % LAB HEMATOLOGY METHOD 01/05/2025 12:37 AM EST [facility] MPV 10.4 8.8 - 12.5 fL LAB HEMATOLOGY METHOD 01/05/2025 12:37 AM EST [facility] nRBC 0.0 <=0.0 per 100 WBCs LAB HEMATOLOGY METHOD 01/05/2025 12:37 AM EST [facility] Blood Arterial blood specimen / Unknown Arterial Puncture / Unknown 01/05/2025 12:06 AM EST 01/05/2025 12:29 AM EST Satnam Beckford MD LAB BLOOD ORDERABLES Final Result Performing Organization Address City/State/[facility] Co de Phone Number [facility] [address] [place] [address] * Transfuse RBC (01/04/2025 9:31 PM EST) Kelvin Zapata APRN BLOOD TRANSFUSION ORDERAB LES Final Result * Transfuse RBC: 1 Units (01/04/2025 9:31 PM EST) Kelvin Zapata APRN BLOOD TRANSFUSION ORDERAB LES Final Result * Prepare Leukocyte Reduced RBC: 1 Units (01/04/2025 8:13 PM EST) Product Code [id number] BLOO D BANK Dispense Status Transfused BLOOD BANK Blood Expiration Date [id number] BLOOD BANK Unit Number [id number] B LOOD BANK Product Blood Type 0600 BLOOD BANK Blood Type A- CH BLOOD BANK Crossmatch Compatible BLOOD BANK Other Kelvin Zapata APRN BLOOD BANK PRODUCT ORDERA BLES Final Result Performing Organization Address City/[facility]/ZIP Co de Phone Number BLOOD BANK [address] * (ABNORMAL) Prothrombin Time/INR (01/04/2025 7:49 PM EST) Prothrombin Time 20.3(H) 12.0 - 14.3 sec LAB COAGULATION METHOD 01/04/2025 8:10 PM EST [facility] INR 1.7(H) 0.9 - 1.1 LAB COAGULATION METHOD 01/04/2025 8:10 PM EST [facility] Blood Arterial blood specimen / Unknown Arterial Puncture / Unknown 01/04/2025 7:49 PM EST 01/04/2025 7:55 PM EST Narrative [facility] - 01/04/2025 8:10 PM EST OPTIMAL INR RANGES FOR PATIENT ON ORAL ANTICOAGULANT THERAPY Prevention of venous thromboembolism INR 2.0 to 3.0 In patients with heart disease: Atrial fibrillation INR 2.0 to 3.0 Valvular heart disease INR 2.0 to 3.0 Tissue heart valves INR 2.0 to 3.0 Mechanical prosthetic valves INR 2.5 to 3.5 Prevention of recurrent OR INR 2.5 to 3.5 Satnam Beckford MD LAB BLOOD ORDERABLES Final Result [facility] [address] [place] [address] * (ABNORMAL) CBC W/O Differential (01/04/2025 7:49 PM EST) WBC Count 9.63 3.70 - 10.30 10*3/uL LAB HEMATOLOGY METHOD 01/04/2025 8:02 PM EST [facility] RBC Count 2.51(L) 4.60 - 6.10 10*6/uL LAB HEMATOLOGY METHOD 01/04/2025 8:02 PM EST [facility] HGB 7.6(L) 13.7 - 17.5 g/dL LAB HEMATOLOGY METHOD 01/04/2025 8:02 PM EST [facility] HCT 22.2(L) 40.0 - 51.0 % LAB HEMATOLOGY METHOD 01/04/2025 8:02 PM EST [facility] Platelet Count 52(L) 155 - 369 10*3/uL LAB HEMATOLOGY METHOD 01/04/2025 8:02 PM EST [facility] MCV 88 79 - 98 fL LAB HEMATOLOGY METHOD 01/04/2025 8:02 PM EST [facility] MCH 30.3 26.0 - 32.0 pg LAB HEMATOLOGY METHOD 01/04/2025 8:02 PM EST [facility] MCHC 34.2 30.7 - 35.5 g/dL LAB HEMATOLOGY METHOD 01/04/2025 8:02 PM EST [facility] RDW 20.0(H) 11.5 - 14.5 % LAB HEMATOLOGY METHOD 01/04/2025 8:02 PM EST [facility] MPV 9.7 8.8 - 12.5 fL LAB HEMATOLOGY METHOD 01/04/2025 8:02 PM EST [facility] nRBC 0.0 <=0.0 per 100 WBCs LAB HEMATOLOGY METHOD 01/04/2025 8:02 PM EST [facility] Blood Arterial blood specimen / Unknown Arterial Puncture / Unknown 01/04/2025 7:49 PM EST 01/04/2025 7:55 PM EST us Satnam Beckford MD LAB BLOOD ORDERABLES Final Result [facility] [address] [place] [address] * (ABNORMAL) Tacrolimus (01/04/2025 5:26 PM EST) Pathologist [facility] Tacrolimus <2.0(L) 4.0 - 17.0 ng/mL 01/05/2025 7:52 AM EST [facility] Comment: Tacrolimus therapeutic range: Initial (<3 mo.) Maintenance Kidney 8-13 ng/mL 4-8 ng/mL Liver 8-13 ng/mL 4-8 ng/mL Heart 8-15 ng/mL 7-13 ng/mL Lung;Heart/Lung 8-17 ng/mL 8-13 ng/mL Blood Arterial blood specimen / Unknown Arterial Line / Unknown 01/04/2025 5:26 PM EST 01/04/2025 5:36 PM EST Narrative [facility] - 01/05/2025 7:52 AM EST Test performed by LC-MS/MS at the [facility]. This test was developed and its performance characteristics determined by [facility]. It has not been cleared or approved by the FDA. The laboratory is regulated under CLIA as qualified to perform high-complexity testing. This test is used for clinical purposes. Test performed by LC-MS/MS at the [facility]. This test was developed and its performance characteristics determined by [facility]. It has not been cleared or approved by the FDA. The laboratory is regulated under CLIA as qualified to perform high-complexity testing. This test is used for clinical purposes. Satnam Beckford MD LAB BLOOD ORDERABLES Final Result [facility] [address] [place] [address] * (ABNORMAL) POCT glucose meter (01/04/2025 5:24 PM EST) [facility] POCT Glucose 128(H) 74 - 99 mg/dL 01/04/2025 5:26 PM EST [facility] Comment:Accuracy of a glucos e result obtained from a capillary whole blood specimen relies upon adequate, non-compromised capillary blood flow. If the capillary glucose result is not consistent with the patient's clinical signs and symptoms, glucose testing should be repeated with either an arterial or venous sample on the glucometer or sent to the main labortory for testing. Comment 01/04/2025 5:26 PM EST [facility] Shearing Machine Operator ID Tila Vazquez 5:26 PM EST [facility] Device ID [id number] 01/04/2025 5:26 PM EST [facility] Specimen Type POC Capillary 01/04/2025 5:26 PM EST [facility] Blood Capillary blood specimen / Unknown 01/04/2025 5:24 PM EST 01/04/2025 5:26 PM EST Satnam Beckford MD LAB POINT OF CARE T EST DOCKED DEVICE UNSOLICITED RESULTS Final Result [facility] [address] [place] [address] * (ABNORMAL) Comprehensive metabolic panel (01/04/2025 3:01 PM EST) Glucose, Plasma 126(H) 74 - 99 mg/dL 01/04/2025 3:38 PM EST [facility] BUN, Plasma 36(H) 7 - 21 mg/dL 01/04/2025 3:38 PM EST [facility] Creatinine, Plasma 1.73(H) 0.70 - 1.20 mg/dL 01/04/2025 3:38 PM EST [facility] BUN/Creatinine Ratio 21 01/04/2025 3:38 PM EST [facility] Sodium, Plasma 138 136 - 145 mmol/L 01/04/2025 3:38 PM EST [facility] Potassium, Plasma 4.6 3.6 - 4.9 mmol/L 01/04/2025 3:38 PM EST [facility] Chloride, Plasma 107 97 - 107 mmol/L 01/04/2025 3:38 PM EST [facility] CO2, Plasma 16(L) 22 - 29 mmol/L 01/04/2025 3:38 PM EST [facility] Anion Gap 15 6 - 16 mmol/L 01/04/2025 3:38 PM EST [facility] Total Calcium, Plasma 8.5(L) 8.9 - 10.2 mg/dL 01/04/2025 3:38 PM EST [facility] Total Protein 5.3(L) 6.3 - 7.9 g/dL 01/04/2025 3:38 PM EST [facility] Albumin, Plasma 3.3(L) 3.5 - 5.2 g/dL 01/04/2025 3:38 PM EST [facility] AST, Plasma 210(H) 10 - 50 U/L 01/04/2025 3:38 PM EST [facility] ALT, Plasma 178(H) 10 - 50 U/L 01/04/2025 3:38 PM EST [facility] Alkaline Phosphatase, Plasma 69 40 - 115 U/L 01/04/2025 3:38 PM EST [facility] Total Bilirubin, Plasma 5.4(H) 0.2 - 1.1 mg/dL 01/04/2025 3:38 PM EST [facility] eGFRcr 49.0 mL/min/1.7 3m*2 01/04/2025 3:38 PM EST [facility] Comment:Reported eGFRcr in m L/min/1.73m2 is based the CKD-EPI 2020 equation that does not use a race coefficient. Blood Venous blood specimen / Unknown Venipuncture / Unknown 01/04/2025 3:01 PM EST 01/04/2025 3:10 PM EST Satnam Beckford MD LAB BLOOD ORDERABLES Final Result [facility] [address] [place] [address] * Magnesium, Plasma (01/04/2025 3:01 PM EST) Magnesium, Plasma 2.4 1.9 - 2.4 mg/dL 01/04/2025 3:38 PM EST [facility] Blood Venous blood specimen / Unknown Venipuncture / Unknown 01/04/2025 3:01 PM EST 01/04/2025 3:10 PM EST Satnam Beckford MD LAB BLOOD ORDERABLES Final Result [facility] [address] [place] [address] * (ABNORMAL) Phosphorus, Plasma (01/04/2025 3:01 PM EST) Phosphorus, Plasma 6.4(H) 2.5 - 4.5 mg/dL 01/04/2025 3:38 PM EST [facility] Blood Venous blood specimen / Unknown Venipuncture / Unknown 01/04/2025 3:01 PM EST 01/04/2025 3:10 PM EST Satnam Beckford MD LAB BLOOD ORDERABLES Final Result [facility] [address] [place] [address] * (ABNORMAL) Prothrombin Time/INR (01/04/2025 3:01 PM EST) Prothrombin Time 20.2(H) 12.0 - 14.3 sec LAB COAGULATION METHOD 01/04/2025 3:38 PM EST [facility] INR 1.7(H) 0.9 - 1.1 LAB COAGULATION METHOD 01/04/2025 3:38 PM EST [facility] Blood Venous blood specimen / Unknown Venipuncture / Unknown 01/04/2025 3:01 PM EST 01/04/2025 3:10 PM EST Narrative [facility] - 01/04/2025 3:38 PM EST OPTIMAL INR RANGES FOR PATIENT ON ORAL ANTICOAGULANT THERAPY Prevention of venous thromboembolism INR 2.0 to 3.0 In patients with heart disease: Atrial fibrillation INR 2.0 to 3.0 Valvular heart disease INR 2.0 to 3.0 Tissue heart valves INR 2.0 to 3.0 Mechanical prosthetic valves INR 2.5 to 3.5 Prevention of recurrent OR INR 2.5 to 3.5 Satnam Beckford MD LAB BLOOD ORDERABLES Final Result [facility] [address] [place] [address] * (ABNORMAL) CBC W/O Differential (01/04/2025 3:01 PM EST) WBC Count 10.03 3.70 - 10.30 10*3/uL LAB HEMATOLOGY METHOD 01/04/2025 3:17 PM EST [facility] RBC Count 2.74(L) 4.60 - 6.10 10*6/uL LAB HEMATOLOGY METHOD 01/04/2025 3:17 PM EST [facility] HGB 8.2(L) 13.7 - 17.5 g/dL LAB HEMATOLOGY METHOD 01/04/2025 3:17 PM EST [facility] HCT 23.9(L) 40.0 - 51.0 % LAB HEMATOLOGY METHOD 01/04/2025 3:17 PM EST [facility] Platelet Count 61(L) 155 - 369 10*3/uL LAB HEMATOLOGY METHOD 01/04/2025 3:17 PM EST [facility] MCV 87 79 - 98 fL LAB HEMATOLOGY METHOD 01/04/2025 3:17 PM EST [facility] MCH 29.9 26.0 - 32.0 pg LAB HEMATOLOGY METHOD 01/04/2025 3:17 PM EST [facility] MCHC 34.3 30.7 - 35.5 g/dL LAB HEMATOLOGY METHOD 01/04/2025 3:17 PM EST [facility] RDW 19.8(H) 11.5 - 14.5 % LAB HEMATOLOGY METHOD 01/04/2025 3:17 PM EST [facility] MPV 10.0 8.8 - 12.5 fL LAB HEMATOLOGY METHOD 01/04/2025 3:17 PM EST [facility] nRBC 0.0 <=0.0 per 100 WBCs LAB HEMATOLOGY METHOD 01/04/2025 3:17 PM EST [facility] Blood Venous blood specimen / Unknown Venipuncture / Unknown 01/04/2025 3:01 PM EST 01/04/2025 3:10 PM EST us Satnam Beckford MD LAB BLOOD ORDERABLES Final Result [facility] [address] [place] [address] * Transfuse fresh frozen plasma (01/04/2025 2:20 PM EST) us Camilla Soto SEO ASSISTANT, DNP BLOOD TRANSFUSION ORDERAB LES Final Result * Transfuse fresh frozen plasma: 1 Units (01/04/2025 2:20 PM EST) Result [facility] us Camilla Soto APRN, DNP BLOOD TRANSFUSION ORDERAB LES Final Result * Transfuse platelets (01/04/2025 12:11 PM EST) Result [facility] us Camilla Soto APRN, DNP BLOOD TRANSFUSION ORDERAB LES Final Result * Transfuse platelets: 1 Units (01/04/2025 12:11 PM EST) Result [facility] us Camilla Soto APRN, DNP BLOOD TRANSFUSION ORDERAB LES Final Result * (ABNORMAL) Hemoglobin and Hematocrit, Blood (01/04/2025 11:46 AM EST) HGB 8.5(L) 13.7 - 17.5 g/dL LAB HEMATOLOGY METHOD 01/04/2025 12:00 PM EST [facility] HCT 25.0(L) 40.0 - 51.0 % LAB HEMATOLOGY METHOD 01/04/2025 12:00 PM EST [facility] Blood Venous blood specimen / Unknown Venipuncture / Unknown 01/04/2025 11:46 AM EST 01/04/2025 11:52 AM EST Result [facility] Satnam Beckford MD LAB BLOOD ORDERABLES Final Result [facility] [address] [place] [address] * Transfuse RBC (01/04/2025 11:24 AM EST) Result [facility] Camilla Soto APRN, DNP BLOOD TRANSFUSION ORDERAB LES Final Result * Transfuse RBC: 1 Units (01/04/2025 11:24 AM EST) Result [facility] us Camilla Soto APRN, DNP BLOOD TRANSFUSION ORDERAB LES Final Result * (ABNORMAL) POCT glucose meter (01/04/2025 11:14 AM EST) POCT Glucose 118(H) 74 - 99 mg/dL 01/04/2025 11:16 AM EST [facility] Comment:Accuracy of a glucos e result obtained from a capillary whole blood specimen relies upon adequate, non-compromised capillary blood flow. If the capillary glucose result is not consistent with the patient's clinical signs and symptoms, glucose testing should be repeated with either an arterial or venous sample on the glucometer or sent to the main labortory for testing. Comment 01/04/2025 11:16 AM EST [facility] Shearing Machine Operator ID Tila Vazquez 11:16 AM EST [facility] Device ID [id number] 01/04/2025 11:16 AM EST [facility] Specimen Type POC Capillary 01/04/2025 11:16 AM EST [facility] Blood Capillary blood specimen / Unknown 01/04/2025 11:14 AM EST 01/04/2025 11:16 AM EST us Satnam Beckford MD LAB POINT OF CARE T EST DOCKED DEVICE UNSOLICITED RESULTS Final Result Performing Organization Address City/State/[facility] Co de Phone Number [facility] [address] [place] [address] * US Abdomen Focused Region Liver (01/04/2025 10:30 AM EST) Anatomical Region Laterality Modality Abdomen Ultrasound Impressions 01/04/2025 11:42 AM EST 1. Liver parenchyma is grossly unremarkable 2. Patent hepatic vasculature with appropriate flow directionality. CRITICAL RESULT: No. COMMUNICATION: Per this written report. Drafted by Keenan Shipley MD on 01/04/2025 11:39 AM Final report signed by Keenan Shipley MD on 01/04/2025 11:42 AM Narrative 01/04/2025 11:42 AM EST CLINICAL INDICATION: S/P Liver TXP TECHNIQUE: Multiplanar static and cine valencia scale ultrasound images of the right abdomen were obtained, accompanied by selective color Doppler ultrasound images. A separate order was placed for a detailed evaluation of the transplant vasculature and additional color and spectral Doppler images of the hepatic vasculature were also obtained. COMPARISON: None. FINDINGS: Grayscale: Liver: Grossly unremarkable. Gallbladder: Absent consistent with prior hepatic transplantation. Free Fluid: Small amount of ascites Duplex: Portal Vein: There is antegrade flow within the main portal vein with a velocity of 83 cm/sec. Hepatic Arteries: Major transplant hepatic artery at the carol ann-hepatis: Patent with appropriate flow directionality. Brisk systolic upstrokes. Resistive index of 0.88 Right intrahepatic artery: Patent with appropriate flow directionality. Brisk systolic upstrokes. Resistive index of 0.69 Left intrahepatic artery: Patent with appropriate flow directionality. Brisk systolic upstrokes. Resistive index of 0.66 Procedure Note Keenan Shipley MD - 01/04/2025 CLINICAL INDICATION: S/P Liver TXP TECHNIQUE: Multiplanar static and cine valencia scale ultrasound images of the rightabdomen were obtained, accompanied by selective color Doppler ultrasoundimages. A separate order was placed for a detailed evaluation of thetransplant vasculature and additional color and spectral Doppler images ofthe hepatic vasculature were also obtained. COMPARISON: None. FINDINGS: Grayscale: Liver: Grossly unremarkable. Gallbladder: Absent consistent with prior hepatic transplantation. Free Fluid: Small amount of ascites Duplex: Portal Vein: There is antegrade flow within the main portal vein with avelocity of 83 cm/sec. Hepatic Arteries: Major transplant hepatic artery at the carol ann-hepatis: Patent withappropriate flow directionality. Brisk systolic upstrokes. Resistive indexof 0.88 Right intrahepatic artery: Patent with appropriate flow directionality.Brisk systolic upstrokes. Resistive index of 0.69 Left intrahepatic artery: Patent with appropriate flow directionality.Brisk systolic upstrokes. Resistive index of 0.66 IMPRESSION: 1. Liver parenchyma is grossly unremarkable 2. Patent hepatic vasculature with appropriate flow directionality. CRITICAL RESULT: No. COMMUNICATION: Per this written report. Drafted by Keenan Shipley MD on 01/04/2025 11:39 AM Final report signed by Keenan Shipley MD on 01/04/2025 11:42 AM us Satnam Beckford MD IMG US PROCEDURES Final Res ult * US Abdomen Doppler Complete (01/04/2025 10:30 AM EST) Anatomical Region Laterality Modality Abdomen Ultrasound Impressions 01/04/2025 11:42 AM EST 1. Liver parenchyma is grossly unremarkable 2. Patent hepatic vasculature with appropriate flow directionality. CRITICAL RESULT: No. COMMUNICATION: Per this written report. Drafted by Keenan Shipley MD on 01/04/2025 11:39 AM Final report signed by Keenan Shipley MD on 01/04/2025 11:42 AM Narrative 01/04/2025 11:42 AM EST CLINICAL INDICATION: S/P Liver TXP TECHNIQUE: Multiplanar static and cine valencia scale ultrasound images of the right abdomen were obtained, accompanied by selective color Doppler ultrasound images. A separate order was placed for a detailed evaluation of the transplant vasculature and additional color and spectral Doppler images of the hepatic vasculature were also obtained. COMPARISON: None. FINDINGS: Grayscale: Liver: Grossly unremarkable. Gallbladder: Absent consistent with prior hepatic transplantation. Free Fluid: Small amount of ascites Duplex: Portal Vein: There is antegrade flow within the main portal vein with a velocity of 83 cm/sec. Hepatic Arteries: Major transplant hepatic artery at the carol ann-hepatis: Patent with appropriate flow directionality. Brisk systolic upstrokes. Resistive index of 0.88 Right intrahepatic artery: Patent with appropriate flow directionality. Brisk systolic upstrokes. Resistive index of 0.69 Left intrahepatic artery: Patent with appropriate flow directionality. Brisk systolic upstrokes. Resistive index of 0.66 Procedure Note Keenan Shipley MD - 01/04/2025 CLINICAL INDICATION: S/P Liver TXP TECHNIQUE: Multiplanar static and cine valencia scale ultrasound images of the rightabdomen were obtained, accompanied by selective color Doppler ultrasoundimages. A separate order was placed for a detailed evaluation of thetransplant vasculature and additional color and spectral Doppler images ofthe hepatic vasculature were also obtained. COMPARISON: None. FINDINGS: Grayscale: Liver: Grossly unremarkable. Gallbladder: Absent consistent with prior hepatic transplantation. Free Fluid: Small amount of ascites Duplex: Portal Vein: There is antegrade flow within the main portal vein with avelocity of 83 cm/sec. Hepatic Arteries: Major transplant hepatic artery at the carol ann-hepatis: Patent withappropriate flow directionality. Brisk systolic upstrokes. Resistive indexof 0.88 Right intrahepatic artery: Patent with appropriate flow directionality.Brisk systolic upstrokes. Resistive index of 0.69 Left intrahepatic artery: Patent with appropriate flow directionality.Brisk systolic upstrokes. Resistive index of 0.66 IMPRESSION: 1. Liver parenchyma is grossly unremarkable 2. Patent hepatic vasculature with appropriate flow directionality. CRITICAL RESULT: No. COMMUNICATION: Per this written report. Drafted by Keenan Shipley MD on 01/04/2025 11:39 AM Final report signed by Keenan Shipley MD on 01/04/2025 11:42 AM Satnam Beckford MD IMG PROCEDURES Final Res ult * Prepare Leukocyte Reduced Platelets: 1 Units (01/04/2025 10:15 AM EST) Product Code [id number] BLOO D BANK Dispense Status Transfused BLOOD BANK Blood Expiration Date [id number] BLOOD BANK Unit Number [id number] B LOOD BANK Product Blood Type 0600 BLOOD BANK Blood Type A- BLOOD BANK Blood Venous blood specimen / Unknown Camilla Soto APRN, DNP BLOOD BANK PRODUCT ORDERA BLES Final Result Performing Organization Address [facility]/State/[facility] de Phone Number BLOOD BANK [address] * Transfuse RBC (01/04/2025 9:53 AM EST) Camilla Soto APRN, DNP BLOOD TRANSFUSION ORDERAB LES Final Result * Transfuse RBC: 1 Units (01/04/2025 9:53 AM EST) Camilla Soto APRN, DNP BLOOD TRANSFUSION ORDERAB LES Final Result * [facility], E/M 30-74 MINUTES (01/04/2025 9:16 AM EST) Narrative Camilla Soto APRN, DNP - 01/04/2025 9:16 AM EST Camilla Soto APRN, DNP 01/04/2025 10:20 AM Critical Care Performed by: Camilla Soto APRN, DNP Authorized by: Camilla Soto APRN, DNP Critical care provider statement: Critical care time (minutes): 75 Critical care time was exclusive of: Separately billable procedures and treating other patients Critical care was time spent personally by me on the following activities: Development of treatment plan with patient or surrogate, discussions with consultants, discussions with primary provider, evaluation of patient's response to treatment, examination of patient, ordering and performing treatments and interventions, ordering and review of laboratory studies and ordering and review of radiographic studies Camilla Soto APRN, DNP IN CLINIC/BEDSIDE ORDERAB LES Final Result * Prepare Fresh Frozen Plasma: 1 Units (01/04/2025 8:51 AM EST) Product Code C3838P33 BLOO D BANK Dispense Status Transfused BLOOD BANK Blood Expiration Date [id number] BLOOD BANK Unit Number [id number] B LOOD BANK Product Blood Type 8400 BLOOD BANK Blood Type AB+ BLOOD BANK Blood Venous blood specimen / Unknown Camilla Soto APRN, DNP BLOOD BANK PRODUCT ORDERA BLES Final Result Performing Organization Address City/[facility]/ZIP Co de Phone Number BLOOD BANK [address] [place] [address], * (ABNORMAL) TEG Global Hemostasis with Lysis (01/04/2025 8:17 AM EST) R, Lysis 7.2 4.6 - 9.1 min 01/04/2025 9:39 AM EST [facility] MA, Rapid, Lysis <40.0(L) 52.0 - 70.0 mm 01/04/2025 9:39 AM EST [facility] MA, Fibrinogen, Lysis 8.7(L) 15.0 - 32.0 mm 01/04/2025 9:39 AM EST [facility] LY30 0.0 0.0 - 2.6 % 01/04/2025 9:39 AM EST [facility] Blood Arterial blood specimen / Unknown Arterial Line / Unknown 01/04/2025 8:17 AM EST 01/04/2025 8:29 AM EST Rivka Gonzalez APRN LAB BLOOD ORDERABLES Fin al Result [facility] [address] [place] [address] * Prepare Leukocyte Reduced RBC: 1 Units (01/04/2025 8:04 AM EST) Product Code [id number] BLOO D BANK Dispense Status Transfused BLOOD BANK Blood Expiration Date [id number] BLOOD BANK Unit Number [id number] CH B LOOD BANK Product Blood Type 0600 BLOOD BANK Blood Type A- CH BLOOD BANK Crossmatch Compatible BLOOD BANK Other Camilla Soto APRN, PATTI BLOOD BANK PRODUCT ORDERA BLES Final Result Performing Organization Address [facility] Co de Phone Number BLOOD BANK [address] * Prepare Leukocyte Reduced RBC: 1 Units (01/04/2025 7:47 AM EST) Product Code [id number] BLOO D BANK Dispense Status Transfused BLOOD BANK Blood Expiration Date [id number] BLOOD BANK Unit Number [id number] B LOOD BANK Product Blood Type 0600 BLOOD BANK Blood Type A- BLOOD BANK Crossmatch Compatible BLOOD BANK Other Camilla Soto APRN, PATTI BLOOD BANK PRODUCT ORDERA BLES Final Result Performing Organization Address [facility] de Phone Number BLOOD BANK [address] [place] [address] * (ABNORMAL) Phosphorus, Plasma (01/04/2025 7:32 AM EST) Phosphorus, Plasma 6.3(H) 2.5 - 4.5 mg/dL 01/04/2025 8:10 AM EST [facility] Blood Venous blood specimen / Unknown Venipuncture / Unknown 01/04/2025 7:32 AM EST 01/04/2025 7:39 AM EST Satnam Beckford MD LAB BLOOD ORDERABLES Final Result Performing Organization Address City/[facility] Co de Phone Number [facility] [address] [place] [address] * Magnesium, Plasma (01/04/2025 7:32 AM EST) Magnesium, Plasma 2.4 1.9 - 2.4 mg/dL 01/04/2025 8:10 AM EST [facility] Blood Venous blood specimen / Unknown Venipuncture / Unknown 01/04/2025 7:32 AM EST 01/04/2025 7:39 AM EST Satnam Beckford MD LAB BLOOD ORDERABLES Final Result Performing Organization Address City/[facility]/ZIP Co de Phone Number [facility] [address] [place] [address] * (ABNORMAL) Prothrombin Time/INR (01/04/2025 7:32 AM EST) Prothrombin Time 23.4(H) 12.0 - 14.3 sec LAB COAGULATION METHOD 01/04/2025 7:55 AM EST [facility] INR 2.0(H) 0.9 - 1.1 LAB COAGULATION METHOD 01/04/2025 7:55 AM EST [facility] Blood Venous blood specimen / Unknown Venipuncture / Unknown 01/04/2025 7:32 AM EST 01/04/2025 7:38 AM EST Narrative [facility] - 01/04/2025 7:55 AM EST OPTIMAL INR RANGES FOR PATIENT ON ORAL ANTICOAGULANT THERAPY Prevention of venous thromboembolism INR 2.0 to 3.0 In patients with heart disease: Atrial fibrillation INR 2.0 to 3.0 Valvular heart disease INR 2.0 to 3.0 Tissue heart valves INR 2.0 to 3.0 Mechanical prosthetic valves INR 2.5 to 3.5 Prevention of recurrent OR INR 2.5 to 3.5 Satnam Beckford MD LAB BLOOD ORDERABLES Final Result [facility] [address] [place] [address] * (ABNORMAL) Comprehensive metabolic panel (01/04/2025 7:32 AM EST) Glucose, Plasma 130(H) 74 - 99 mg/dL 01/04/2025 8:10 AM EST [facility] BUN, Plasma 29(H) 7 - 21 mg/dL 01/04/2025 8:10 AM [facility] Creatinine, Plasma 1.64(H) 0.70 - 1.20 mg/dL 01/04/2025 8:10 AM [facility] BUN/Creatinine Ratio 18 01/04/2025 8:10 AM [facility] Sodium, Plasma 140 136 - 145 mmol/L 01/04/2025 8:10 AM [facility] Potassium, Plasma 4.6 3.6 - 4.9 mmol/L 01/04/2025 8:10 AM [facility] Chloride, Plasma 110(H) 97 - 107 mmol/L 01/04/2025 8:10 AM [facility] CO2, Plasma 16(L) 22 - 29 mmol/L 01/04/2025 8:10 AM [facility] Anion Gap 14 6 - 16 mmol/L 01/04/2025 8:10 AM [facility] Total Calcium, Plasma 8.3(L) 8.9 - 10.2 mg/dL 01/04/2025 8:10 AM [facility] Total Protein 4.6(L) 6.3 - 7.9 g/dL 01/04/2025 8:10 AM [facility] Albumin, Plasma 3.0(L) 3.5 - 5.2 g/dL 01/04/2025 8:10 AM [facility] AST, Plasma 264(H) 10 - 50 U/L 01/04/2025 8:10 AM [facility] ALT, Plasma 177(H) 10 - 50 U/L 01/04/2025 8:10 AM [facility] Alkaline Phosphatase, Plasma 63 40 - 115 U/L 01/04/2025 8:10 AM [facility] Total Bilirubin, Plasma 4.9(H) 0.2 - 1.1 mg/dL 01/04/2025 8:10 AM [facility] eGFRcr 52.2 mL/min/1.7 3m*2 01/04/2025 8:10 AM [facility] Comment:Reported eGFRcr in m L/min/1.73m2 is based the CKD-EPI 2020 equation that does not use a race coefficient. Blood Venous blood specimen / Unknown Venipuncture / Unknown 01/04/2025 7:32 AM EST 01/04/2025 7:39 AM EST Satnam Beckford MD LAB BLOOD ORDERABLES Final Result [facility] [address] [place] [address] * (ABNORMAL) CBC W/O Differential (01/04/2025 7:32 AM EST) WBC Count 8.55 3.70 - 10.30 10*3/uL LAB HEMATOLOGY METHOD 01/04/2025 7:49 AM EST [facility] RBC Count 2.26(L) 4.60 - 6.10 10*6/uL LAB HEMATOLOGY METHOD 01/04/2025 7:49 AM EST [facility] HGB 6.7(L) 13.7 - 17.5 g/dL LAB HEMATOLOGY METHOD 01/04/2025 7:49 AM EST [facility] HCT 20.3(L) 40.0 - 51.0 % LAB HEMATOLOGY METHOD 01/04/2025 7:49 AM EST [facility] Platelet Count 51(L) 155 - 369 10*3/uL LAB HEMATOLOGY METHOD 01/04/2025 7:49 AM EST [facility] MCV 90 79 - 98 fL LAB HEMATOLOGY METHOD 01/04/2025 7:49 AM EST [facility] MCH 29.6 26.0 - 32.0 pg LAB HEMATOLOGY METHOD 01/04/2025 7:49 AM EST [facility] MCHC 33.0 30.7 - 35.5 g/dL LAB HEMATOLOGY METHOD 01/04/2025 7:49 AM EST [facility] RDW 21.7(H) 11.5 - 14.5 % LAB HEMATOLOGY METHOD 01/04/2025 7:49 AM EST [facility] MPV 10.7 8.8 - 12.5 fL LAB HEMATOLOGY METHOD 01/04/2025 7:49 AM EST [facility] nRBC 0.0 <=0.0 per 100 WBCs LAB HEMATOLOGY METHOD 01/04/2025 7:49 AM EST [facility] Blood Venous blood specimen / Unknown Venipuncture / Unknown 01/04/2025 7:32 AM EST 01/04/2025 7:39 AM EST Satnam Beckford MD LAB BLOOD ORDERABLES Final Result Performing Organization Address City/[facility]/ZIP Co de Phone Number [facility] [address] [place] [address] * (ABNORMAL) Hemoglobin and hematocrit, blood (01/04/2025 6:00 AM EST) HGB 7.4(L) 13.7 - 17.5 g/dL LAB HEMATOLOGY METHOD 01/04/2025 6:15 AM EST [facility] HCT 22.3(L) 40.0 - 51.0 % LAB HEMATOLOGY METHOD 01/04/2025 6:15 AM EST [facility] Blood Venous blood specimen / Unknown Venipuncture / Unknown 01/04/2025 6:00 AM EST 01/04/2025 6:06 AM EST Kathy Jiang APRN, DNP LAB BLOOD ORDERABLES Fi nal Result Performing Organization Address City/[facility] Co de Phone Number [facility] [address] [place] [address] * (ABNORMAL) POCT glucose meter (01/04/2025 5:59 AM EST) POCT Glucose 129(H) 74 - 99 mg/dL 01/04/2025 6:01 AM EST [facility] Comment:Accuracy of a glucos e result obtained from a capillary whole blood specimen relies upon adequate, non-compromised capillary blood flow. If the capillary glucose result is not consistent with the patient's clinical signs and symptoms, glucose testing should be repeated with either an arterial or venous sample on the glucometer or sent to the main labortory for testing. Comment 01/04/2025 6:01 AM EST [facility] Shearing Machine Operator ID Eleazar Bradford 6:01 AM EST [facility] Device ID [id number] 01/04/2025 6:01 AM EST [facility] Specimen Type POC Arterial 01/04/2025 6:01 AM EST [facility] Blood Arterial blood specimen / Unknown 01/04/2025 5:59 AM EST 01/04/2025 6:01 AM EST Satnam Beckford MD LAB POINT OF CARE T EST DOCKED DEVICE UNSOLICITED RESULTS Final Result [facility] [address] [place] [address] * XR Chest 1 View (01/04/2025 4:55 AM EST) Anatomical Region Laterality Modality Chest Digital Radiogra phy Impressions 01/04/2025 11:41 AM EST Mild interval advancement of the Brayton-Héctor catheter and removal of the nasogastric tube. Otherwise, no significant interval change. CRITICAL RESULT: No. COMMUNICATION: Per this written report. Drafted by Hermila Tapia MD on 01/04/2025 11:38 AM Final report signed by Hermila Tapia MD on 01/04/2025 11:41 AM Narrative 01/04/2025 11:41 AM EST CLINICAL INDICATION: S/P Liver TXP - evaluation of lung santana TECHNIQUE: Single AP view of chest. COMPARISON: One day prior FINDINGS: Interval advancement of the Brayton-Héctor catheter, the tip now projects over the right pulmonary artery. Interval removal of the nasogastric tube. The rest of the visualized support hardware are unchanged. The cardiomediastinal contours unchanged. No pneumothorax. Small left pleural effusion. Mild pulmonary vascular congestion. Persistent low lung volume. Similar bibasal lung opacities which may represent atelectasis and/or airspace disease. Procedure Note Hermila Tapia MD - 01/04/2025 CLINICAL INDICATION: S/P Liver TXP - evaluation of lung santana TECHNIQUE: Single AP view of chest. COMPARISON: One day prior FINDINGS: Interval advancement of the Brayton-Héctor catheter, the tip now projects overthe right pulmonary artery. Interval removal of the nasogastric tube. Therest of the visualized support hardware are unchanged. Thecardiomediastinal contours unchanged. No pneumothorax. Small left pleuraleffusion. Mild pulmonary vascular congestion. Persistent low lung volume.Similar bibasal lung opacities which may represent atelectasis and/orairspace disease. IMPRESSION: Mild interval advancement of the Brayton-Héctor catheter and removal of thenasogastric tube. Otherwise, no significant interval change. CRITICAL RESULT: No. COMMUNICATION: Per this written report. Drafted by Hermila Tapia MD on 01/04/2025 11:38 AM Final report signed by Hermila Tapia MD on 01/04/2025 11:41 AM Satnam Beckford MD IMG XR PROCEDURES Final Res ult * Transfuse RBC (01/04/2025 1:56 AM EST) us Kathy Jiang APRN, DNP BLOOD TRANSFUSION ORDER GIANFRANCO Final Result * Transfuse RBC: 1 Units (01/04/2025 1:56 AM EST) us Kathy Jiang APRN, DNP BLOOD TRANSFUSION ORDER GIANFRANCO Final Result * Prepare Leukocyte Reduced RBC: 1 Units (01/03/2025 11:49 PM EST) [facility] Product Code [id number] BLOO D BANK Dispense Status Transfused BLOOD BANK Blood Expiration Date [id number] BLOOD BANK Unit Number [id number] B LOOD BANK Product Blood Type 0600 BLOOD BANK Blood Type A- BLOOD BANK Crossmatch Compatible BLOOD BANK Other us Kathy Jiang APRN, DNP BLOOD BANK PRODUCT ORDE RABLES Final Result Performing Organization Address City/State/[facility] Co de Phone Number BLOOD BANK [address] [place] [address], * (ABNORMAL) POCT glucose meter (01/03/2025 11:34 PM EST) [facility] POCT Glucose 142(H) 74 - 99 mg/dL 01/03/2025 11:35 PM EST [facility] Comment:Accuracy of a glucos e result obtained from a capillary whole blood specimen relies upon adequate, non-compromised capillary blood flow. If the capillary glucose result is not consistent with the patient's clinical signs and symptoms, glucose testing should be repeated with either an arterial or venous sample on the glucometer or sent to the main labortory for testing. Comment 01/03/2025 11:35 PM EST [facility] Shearing Machine Operator ID Eleazar Bradford 11:35 PM EST [facility] Device ID [id number] 01/03/2025 11:35 PM EST [facility] Specimen Type POC Arterial 01/03/2025 11:35 PM EST [facility] Blood Arterial blood specimen / Unknown 01/03/2025 11:34 PM EST 01/03/2025 11:35 PM EST Satnam Beckford MD LAB POINT OF CARE T EST DOCKED DEVICE UNSOLICITED RESULTS Final Result Performing Organization Address City/[facility]/ZIP Co de Phone Number [facility]ALTH[facility]ARE [facility] [address] [place] [address] * (ABNORMAL) Phosphorus, Plasma (01/03/2025 11:29 PM EST) Phosphorus, Plasma 5.6(H) 2.5 - 4.5 mg/dL 01/04/2025 12:10 AM EST [facility] Blood Venous blood specimen / Unknown Venipuncture / Unknown 01/03/2025 11:29 PM EST 01/03/2025 11:40 PM EST Satnam Beckford MD LAB BLOOD ORDERABLES Final Result Performing Organization Address City/[facility] Co de Phone Number [facility] [address] [place] [address] * (ABNORMAL) Magnesium, Plasma (01/03/2025 11:29 PM EST) Magnesium, Plasma 2.5(H) 1.9 - 2.4 mg/dL 01/04/2025 12:10 AM EST [facility] Blood Venous blood specimen / Unknown Venipuncture / Unknown 01/03/2025 11:29 PM EST 01/03/2025 11:40 PM EST Satnam Beckford MD LAB BLOOD ORDERABLES Final Result [facility] [address] [place] [address] * (ABNORMAL) Prothrombin Time/INR (01/03/2025 11:29 PM EST) Prothrombin Time 22.3(H) 12.0 - 14.3 sec LAB COAGULATION METHOD 01/04/2025 12:36 AM EST [facility] INR 1.9(H) 0.9 - 1.1 LAB COAGULATION METHOD 01/04/2025 12:36 AM EST [facility] Blood Venous blood specimen / Unknown Venipuncture / Unknown 01/03/2025 11:29 PM EST 01/03/2025 11:40 PM EST Narrative [facility] - 01/04/2025 12:36 AM EST OPTIMAL INR RANGES FOR PATIENT ON ORAL ANTICOAGULANT THERAPY Prevention of venous thromboembolism INR 2.0 to 3.0 In patients with heart disease: Atrial fibrillation INR 2.0 to 3.0 Valvular heart disease INR 2.0 to 3.0 Tissue heart valves INR 2.0 to 3.0 Mechanical prosthetic valves INR 2.5 to 3.5 Prevention of recurrent OR INR 2.5 to 3.5 us Satnam Beckford MD LAB BLOOD ORDERABLES Final Result [facility] [address] [place] [address] * (ABNORMAL) Comprehensive metabolic panel (01/03/2025 11:29 PM EST) Glucose, Plasma 163(H) 74 - 99 mg/dL 01/04/2025 12:10 AM EST [facility] BUN, Plasma 24(H) 7 - 21 mg/dL 01/04/2025 12:10 AM EST [facility] Creatinine, Plasma 1.40(H) 0.70 - 1.20 mg/dL 01/04/2025 12:10 AM EST [facility] BUN/Creatinine Ratio 17 01/04/2025 12:10 AM EST [facility] Sodium, Plasma 141 136 - 145 mmol/L 01/04/2025 12:10 AM EST [facility] Potassium, Plasma 4.3 3.6 - 4.9 mmol/L 01/04/2025 12:10 AM EST [facility] Chloride, Plasma 112(H) 97 - 107 mmol/L 01/04/2025 12:10 AM EST [facility] CO2, Plasma 18(L) 22 - 29 mmol/L 01/04/2025 12:10 AM EST [facility] Anion Gap 11 6 - 16 mmol/L 01/04/2025 12:10 AM EST [facility] Total Calcium, Plasma 8.5(L) 8.9 - 10.2 mg/dL 01/04/2025 12:10 AM EST [facility] Total Protein 4.5(L) 6.3 - 7.9 g/dL 01/04/2025 12:10 AM EST [facility] Albumin, Plasma 2.8(L) 3.5 - 5.2 g/dL 01/04/2025 12:10 AM EST [facility] AST, Plasma 459(H) 10 - 50 U/L 01/04/2025 12:10 AM EST [facility] ALT, Plasma 223(H) 10 - 50 U/L 01/04/2025 12:10 AM EST [facility] Alkaline Phosphatase, Plasma 80 40 - 115 U/L 01/04/2025 12:10 AM EST [facility] Total Bilirubin, Plasma 7.5(H) 0.2 - 1.1 mg/dL 01/04/2025 12:10 AM EST [facility] eGFRcr 63.2 mL/min/1.7 3m*2 01/04/2025 12:10 AM EST [facility] Comment:Reported eGFRcr in m L/min/1.73m2 is based the CKD-EPI 2020 equation that does not use a race coefficient. Blood Venous blood specimen / Unknown Venipuncture / Unknown 01/03/2025 11:29 PM EST 01/03/2025 11:40 PM EST us Satnam Beckford MD LAB BLOOD ORDERABLES Final Result [facility] [address] [place] [address] * (ABNORMAL) CBC W/O Differential (01/03/2025 11:29 PM EST) WBC Count 8.83 3.70 - 10.30 10*3/uL LAB HEMATOLOGY METHOD 01/03/2025 11:47 PM EST [facility] RBC Count 2.59(L) 4.60 - 6.10 10*6/uL LAB HEMATOLOGY METHOD 01/03/2025 11:47 PM EST [facility] HGB 7.7(L) 13.7 - 17.5 g/dL LAB HEMATOLOGY METHOD 01/03/2025 11:47 PM EST [facility] HCT 23.3(L) 40.0 - 51.0 % LAB HEMATOLOGY METHOD 01/03/2025 11:47 PM EST [facility] Platelet Count 59(L) 155 - 369 10*3/uL LAB HEMATOLOGY METHOD 01/03/2025 11:47 PM EST [facility] MCV 90 79 - 98 fL LAB HEMATOLOGY METHOD 01/03/2025 11:47 PM EST [facility] MCH 29.7 26.0 - 32.0 pg LAB HEMATOLOGY METHOD 01/03/2025 11:47 PM EST [facility] MCHC 33.0 30.7 - 35.5 g/dL LAB HEMATOLOGY METHOD 01/03/2025 11:47 PM EST [facility] RDW 22.9(H) 11.5 - 14.5 % LAB HEMATOLOGY METHOD 01/03/2025 11:47 PM EST [facility] MPV 10.1 8.8 - 12.5 fL LAB HEMATOLOGY METHOD 01/03/2025 11:47 PM EST [facility] nRBC 0.0 <=0.0 per 100 WBCs LAB HEMATOLOGY METHOD 01/03/2025 11:47 PM EST [facility] Blood Venous blood specimen / Unknown Venipuncture / Unknown 01/03/2025 11:29 PM EST 01/03/2025 11:40 PM EST us Satnam Beckford MD LAB BLOOD ORDERABLES Final Result [facility] [address] [place] [address] * Transfuse fresh frozen plasma (01/03/2025 9:03 PM EST) us Kathy Jiang APRN, DNP BLOOD TRANSFUSION ORDER GIANFRANCO Final Result * Transfuse fresh frozen plasma: 1 Units (01/03/2025 9:03 PM EST) us Chavez Eulogio Apolinar RIVERS DNP BLOOD TRANSFUSION ORDER GIANFRANCO Final Result * Prepare Fresh Frozen Plasma: 1 Units (01/03/2025 7:57 PM EST) Product Code [id number] BLOO D BANK Dispense Status Transfused BLOOD BANK Blood Expiration Date [id number] BLOOD BANK Unit Number [id number] CH B LOOD BANK Product Blood Type 6200 BLOOD BANK Blood Type A+ BLOOD BANK Blood Venous blood specimen / Unknown us Kathy Jiang APRN, DNP BLOOD BANK PRODUCT ORDE RABLES Final Result Performing Organization Address [facility]/ZIP Co de Phone Number BLOOD BANK [address] * (ABNORMAL) Phosphorus, Plasma (01/03/2025 7:23 PM EST) Phosphorus, Plasma 5.0(H) 2.5 - 4.5 mg/dL 01/03/2025 8:01 PM EST [facility] Blood Venous blood specimen / Unknown Venipuncture / Unknown 01/03/2025 7:23 PM EST 01/03/2025 7:30 PM EST Satnam Beckford MD LAB BLOOD ORDERABLES Final Result [facility] [address] [place] [address] * (ABNORMAL) Magnesium, Plasma (01/03/2025 7:23 PM EST) Magnesium, Plasma 1.8(L) 1.9 - 2.4 mg/dL 01/03/2025 8:01 PM EST [facility] Blood Venous blood specimen / Unknown Venipuncture / Unknown 01/03/2025 7:23 PM EST 01/03/2025 7:30 PM EST Satnam Beckford MD LAB BLOOD ORDERABLES Final Result Performing Organization Address City/[facility]/ZIP Co de Phone Number [facility] [address] [place] [address] * (ABNORMAL) Prothrombin Time/INR (01/03/2025 7:23 PM EST) Prothrombin Time 22.9(H) 12.0 - 14.3 sec LAB COAGULATION METHOD 01/03/2025 7:46 PM EST [facility] INR 2.0(H) 0.9 - 1.1 LAB COAGULATION METHOD 01/03/2025 7:46 PM EST [facility] Blood Venous blood specimen / Unknown Venipuncture / Unknown 01/03/2025 7:23 PM EST 01/03/2025 7:30 PM EST Narrative [facility] - 01/03/2025 7:46 PM EST OPTIMAL INR RANGES FOR PATIENT ON ORAL ANTICOAGULANT THERAPY Prevention of venous thromboembolism INR 2.0 to 3.0 In patients with heart disease: Atrial fibrillation INR 2.0 to 3.0 Valvular heart disease INR 2.0 to 3.0 Tissue heart valves INR 2.0 to 3.0 Mechanical prosthetic valves INR 2.5 to 3.5 Prevention of recurrent OR INR 2.5 to 3.5 Satnam Beckford MD LAB BLOOD ORDERABLES Final Result Performing Organization Address City/[facility]/ZIP Co de Phone Number [facility] [address] [place] [address] * (ABNORMAL) Comprehensive metabolic panel (01/03/2025 7:23 PM EST) Glucose, Plasma 146(H) 74 - 99 mg/dL 01/03/2025 8:01 PM EST [facility] BUN, Plasma 21 7 - 21 mg/dL 01/03/2025 8:01 PM EST [facility] Creatinine, Plasma 1.25(H) 0.70 - 1.20 mg/dL 01/03/2025 8:01 PM EST [facility] BUN/Creatinine Ratio 17 01/03/2025 8:01 PM [facility] Sodium, Plasma 140 136 - 145 mmol/L 01/03/2025 8:01 PM [facility] Potassium, Plasma 4.5 3.6 - 4.9 mmol/L 01/03/2025 8:01 PM [facility] Chloride, Plasma 111(H) 97 - 107 mmol/L 01/03/2025 8:01 PM [facility] CO2, Plasma 19(L) 22 - 29 mmol/L 01/03/2025 8:01 PM [facility] Anion Gap 10 6 - 16 mmol/L 01/03/2025 8:01 PM [facility] Total Calcium, Plasma 8.8(L) 8.9 - 10.2 mg/dL 01/03/2025 8:01 PM [facility] Total Protein 4.5(L) 6.3 - 7.9 g/dL 01/03/2025 8:01 PM [facility] Albumin, Plasma 2.7(L) 3.5 - 5.2 g/dL 01/03/2025 8:01 PM [facility] AST, Plasma 612(H) 10 - 50 U/L 01/03/2025 8:01 PM [facility] ALT, Plasma 245(H) 10 - 50 U/L 01/03/2025 8:01 PM [facility] Alkaline Phosphatase, Plasma 84 40 - 115 U/L 01/03/2025 8:01 PM [facility] Total Bilirubin, Plasma 11.0(H) 0.2 - 1.1 mg/dL 01/03/2025 8:01 PM [facility] eGFRcr 72.4 mL/min/1.7 3m*2 01/03/2025 8:01 PM [facility] Comment:Reported eGFRcr in m L/min/1.73m2 is based the CKD-EPI 2020 equation that does not use a race coefficient. Blood Venous blood specimen / Unknown Venipuncture / Unknown 01/03/2025 7:23 PM EST 01/03/2025 7:30 PM EST us Satnam N Beckford MD LAB BLOOD ORDERABLES Final Result [facility] [address] [place] [address] * (ABNORMAL) CBC W/O Differential (01/03/2025 7:23 PM EST) WBC Count 8.84 3.70 - 10.30 10*3/uL LAB HEMATOLOGY METHOD 01/03/2025 7:37 PM EST [facility] RBC Count 2.72(L) 4.60 - 6.10 10*6/uL LAB HEMATOLOGY METHOD 01/03/2025 7:37 PM EST [facility] HGB 8.2(L) 13.7 - 17.5 g/dL LAB HEMATOLOGY METHOD 01/03/2025 7:37 PM EST [facility] HCT 24.9(L) 40.0 - 51.0 % LAB HEMATOLOGY METHOD 01/03/2025 7:37 PM EST [facility] Platelet Count 57(L) 155 - 369 10*3/uL LAB HEMATOLOGY METHOD 01/03/2025 7:37 PM EST [facility] MCV 92 79 - 98 fL LAB HEMATOLOGY METHOD 01/03/2025 7:37 PM EST [facility] MCH 30.1 26.0 - 32.0 pg LAB HEMATOLOGY METHOD 01/03/2025 7:37 PM EST [facility] MCHC 32.9 30.7 - 35.5 g/dL LAB HEMATOLOGY METHOD 01/03/2025 7:37 PM EST [facility] RDW 23.0(H) 11.5 - 14.5 % LAB HEMATOLOGY METHOD 01/03/2025 7:37 PM EST [facility] MPV 10.2 8.8 - 12.5 fL LAB HEMATOLOGY METHOD 01/03/2025 7:37 PM EST [facility] nRBC 0.0 <=0.0 per 100 WBCs LAB HEMATOLOGY METHOD 01/03/2025 7:37 PM EST [facility] Blood Venous blood specimen / Unknown Venipuncture / Unknown 01/03/2025 7:23 PM EST 01/03/2025 7:30 PM EST us Satnam Beckford MD LAB BLOOD ORDERABLES Final Result Performing Organization Address City/[facility]/ZIP Co de Phone Number [facility] [address] [place] [address] * (ABNORMAL) POCT glucose meter (01/03/2025 5:29 PM EST) POCT Glucose 139(H) 74 - 99 mg/dL 01/03/2025 5:31 PM EST [facility] Comment:Accuracy of a glucos e result obtained from a capillary whole blood specimen relies upon adequate, non-compromised capillary blood flow. If the capillary glucose result is not consistent with the patient's clinical signs and symptoms, glucose testing should be repeated with either an arterial or venous sample on the glucometer or sent to the main labortory for testing. Comment 01/03/2025 5:31 PM EST [facility] Shearing Machine Operator ID Elyssa Augustin 01/03/2025 5:31 PM EST [facility] Device ID [id number] 01/03/2025 5:31 PM EST [facility] Specimen Type POC Arterial 01/03/2025 5:31 PM EST [facility] Blood Arterial blood specimen / Unknown 01/03/2025 5:29 PM EST 01/03/2025 5:31 PM EST Satnam Beckford MD LAB POINT OF CARE T EST DOCKED DEVICE UNSOLICITED RESULTS Final Result Performing Organization Address City/[facility] Co de Phone Number [facility] [address] [place] [address] * Transfuse fresh frozen plasma (01/03/2025 4:30 PM EST) Camilla Soto APRN, PATTI BLOOD TRANSFUSION ORDERAB LES Final Result * Transfuse fresh frozen plasma: 1 Units (01/03/2025 4:30 PM EST) Camilla Soto APRN, PATTI BLOOD TRANSFUSION ORDERAB LES Final Result * (ABNORMAL) POCT glucose meter (01/03/2025 4:13 PM EST) POCT Glucose 141(H) 74 - 99 mg/dL 01/03/2025 4:15 PM EST [facility] Comment:Accuracy of a glucos e result obtained from a capillary whole blood specimen relies upon adequate, non-compromised capillary blood flow. If the capillary glucose result is not consistent with the patient's clinical signs and symptoms, glucose testing should be repeated with either an arterial or venous sample on the glucometer or sent to the main labortory for testing. Comment 01/03/2025 4:15 PM EST [facility] Shearing Machine Operator ID Elyssa Augustin 01/03/2025 4:15 PM EST [facility] Device ID [id number] 01/03/2025 4:15 PM EST [facility] Specimen Type POC Arterial 01/03/2025 4:15 PM EST [facility] Blood Arterial blood specimen / Unknown 01/03/2025 4:13 PM EST 01/03/2025 4:15 PM EST Satnam Beckford MD LAB POINT OF CARE T EST DOCKED DEVICE UNSOLICITED RESULTS Final Result Performing Organization Address City/[facility] Co de Phone Number [facility] [address] [place] [address] * Tylor auris Surveillance by PCR (01/03/2025 4:09 PM EST) Tylor auris PCR Result Not Detected Not Detected 01/04/2025 11:52 AM EST [facility] Swab (Axilla and Groin) Non-blood Collection / Unknown 01/03/2025 4:09 PM EST 01/03/2025 4:28 PM EST Narrative [facility] - 01/04/2025 11:52 AM EST This PCR assay was developed and its performance characteristics determined by [facility] as appropriate for clinical purposes. This assay has not been cleared or approved by the FDA, but is performed in a CLIA regulated laboratory that is qualified to perform high-complexity testing. Satnam Beckford MD LAB MICROBIOLOGY - GENERAL ORDERABLES Final Result Performing Organization Address City/[facility]/ZIP Co de Phone Number [facility] [address] [place] [address] * Multi Drug Resistance Test (01/03/2025 4:09 PM EST) Culture No growth at day 1 01/05/2025 5:36 AM EST [facility] Swab (Nares and Lauren Rectal) Non-blood Collection / Unknown 01/03/2025 4:09 PM EST 01/03/2025 4:28 PM EST Narrative [facility] - 01/05/2025 5:36 AM EST This test was developed and its performance characteristics determined by the [facility]. Although the media is FDA-approved, it is not FDA-approved for all specimen types submitted. The FDA has determined that such clearance or approval is not necessary. This test is used for surveillance purposes. It should not be regarded as investigational or for research. The [facility] is certified under the Clinical Laboratory Improvement Amendments of 1988 (CLIA-88) as qualified to perform high complexity clinical laboratory testing. Satnam Beckford MD LAB MICROBIOLOGY - GENERAL ORDERABLES Final Result Performing Organization Address City/State/[facility] Co de Phone Number [facility] [address] [place] [address] * (ABNORMAL) Blood gas panel with oximetry, mixed venous (01/03/2025 3:47 PM EST) Pathologist [facility] pH, Mixed Venous 7.31(L) 7.32 - 7.43 LAB HEMATOLOGY METHOD 01/03/2025 3:56 PM EST [facility] pCO2, Mixed Venous 42 40 - 55 mmHg LAB HEMATOLOGY METHOD 01/03/2025 3:56 PM EST [facility] pO2, Mixed Venous 53(H) 25 - 40 mmHg LAB HEMATOLOGY METHOD 01/03/2025 3:56 PM EST [facility] SO2, Measured, Mixed Venous 87(H) 65 - 80 % LAB HEMATOLOGY METHOD 01/03/2025 3:56 PM EST [facility] Bicarbonate, Calculated, Mixed Venous 21(L) 22 - 26 mmol/L LAB HEMATOLOGY METHOD 01/03/2025 3:56 PM EST [facility] Base Excess, Mixed Venous -5.1(L) -2.0 - 3.0 mmol/L LAB HEMATOLOGY METHOD 01/03/2025 3:56 PM EST [facility] Hematocrit, Whole Blood 26.4(L) 40.0 - 51.0 % LAB HEMATOLOGY METHOD 01/03/2025 3:56 PM EST [facility] Sodium, Whole Blood 140 136 - 145 mmol/L LAB HEMATOLOGY METHOD 01/03/2025 3:56 PM EST [facility] Potassium, Whole Blood 4.5 3.6 - 4.9 mmol/L LAB HEMATOLOGY METHOD 01/03/2025 3:56 PM EST [facility] Chloride, Whole Blood 115(H) 97 - 107 mmol/L LAB HEMATOLOGY METHOD 01/03/2025 3:56 PM EST [facility] Ionized Calcium, Whole Blood 5.2(H) 4.6 - 5.1 mg/dL LAB HEMATOLOGY METHOD 01/03/2025 3:56 PM EST [facility] Glucose, Whole Blood 145(H) 74 - 99 mg/dL LAB HEMATOLOGY METHOD 01/03/2025 3:56 PM EST [facility] Oxyhemoglobin, Mixed Venous, Whole Blood 82.3(H) 40.0 - 70.0 % LAB HEMATOLOGY METHOD 01/03/2025 3:56 PM EST [facility] Hemoglobin Reduced, Mixed Venous, Whole Blood 12.6 % LAB HEMATOLOGY METHOD 01/03/2025 3:56 PM EST [facility] Total Hemoglobin, Mixed Venous, Whole Blood 8.6(L) 13.7 - 17.5 g/dL LAB HEMATOLOGY METHOD 01/03/2025 3:56 PM EST [facility] Blood Mixed venous blood specimen / Unknown Venipuncture / Unknown 01/03/2025 3:47 PM EST 01/03/2025 3:54 PM EST us Satnam Beckford MD LAB BLOOD ORDERABLES Final Result [facility] [address] [place] [address] * XR Abdomen 1 View (Adult Inpatients per policy) (01/03/2025 3:39 PM EST) Anatomical Region Laterality Modality Body Digital Radiogra phy Impressions 01/03/2025 3:43 PM EST The tip of the gastric tube is within the proximal stomach CRITICAL RESULT: No. COMMUNICATION: Per this written report. Drafted by Ernesto Rizo MD on 01/03/2025 3:43 PM Final report signed by Ernesto Rizo MD on 01/03/2025 3:43 PM Narrative 01/03/2025 3:43 PM EST CLINICAL INDICATION: Confirm proper placement of NG/OG tube TECHNIQUE: Supine radiograph of the abdomen. COMPARISON: None. FINDINGS: Limited [id number] abdominal radiograph for the purpose of locating tube position. The tip of the nasogastric tube is within the proximal stomach. Procedure Note Ernesto Rizo MD - 01/03/2025 CLINICAL INDICATION: Confirm proper placement of NG/OG tube TECHNIQUE: Supine radiograph of the abdomen. COMPARISON: None. FINDINGS: Limited [id number] abdominal radiograph for the purpose of locatingtube position. The tip of the nasogastric tube is within the proximal stomach. IMPRESSION: The tip of the gastric tube is within the proximal stomach CRITICAL RESULT: No. COMMUNICATION: Per this written report. Drafted by Ernesto Rizo MD on 01/03/2025 3:43 PM Final report signed by Ernesto Rizo MD on 01/03/2025 3:43 PM us Satnam Beckford MD IMG XR PROCEDURES Final Res ult * XR Chest 1 View (01/03/2025 3:39 PM EST) Anatomical Region Laterality Modality Chest Digital Radiogra phy Impressions 01/03/2025 4:06 PM EST Lines and catheters as above Moderate layering left effusion and left lower lobe opacities, possibly atelectasis CRITICAL RESULT: No COMMUNICATION: Per this written report. Drafted by Ernesto Rizo MD on 01/03/2025 4:05 PM Final report signed by Ernesto Rizo MD on 01/03/2025 4:06 PM Narrative 01/03/2025 4:06 PM EST CLINICAL INDICATION: ETT placement TECHNIQUE: XR CHEST 1 VIEW COMPARISON: 10/20/2024 FINDINGS: The cardiomediastinal silhouette is enlarged. Endotracheal tube tip overlies upper to midthoracic trachea. Brayton-Héctor catheter tip overlies main pulmonary artery. Right IJ catheter tip overlies superior vena cava. Left chest catheter tip overlies cavoatrial junction. Moderate layering left effusion and bilateral pulmonary edema. Left basilar opacity, could be atelectasis. No visible pneumothorax Procedure Note Ernesto Rizo MD - 01/03/2025 CLINICAL INDICATION: ETT placement TECHNIQUE: XR CHEST 1 VIEW COMPARISON: 10/20/2024 FINDINGS: The cardiomediastinal silhouette is enlarged. Endotracheal tube tipoverlies upper to midthoracic trachea. Brayton-Héctor catheter tip overliesmain pulmonary artery. Right IJ catheter tip overlies superior vena cava.Left chest catheter tip overlies cavoatrial junction. Moderate layeringleft effusion and bilateral pulmonary edema. Left basilar opacity, couldbe atelectasis. No visible pneumothorax IMPRESSION: Lines and catheters as above Moderate layering left effusion and left lower lobe opacities, possiblyatelectasis CRITICAL RESULT: No COMMUNICATION: Per this written report. Drafted by Ernesto Rizo MD on 01/03/2025 4:05 PM Final report signed by Ernesto Rizo MD on 01/03/2025 4:06 PM Satnam Beckford MD IMG XR PROCEDURES Final Res ult * [facility]ITICAL CARE, E/M 30-74 MINUTES (01/03/2025 3:18 PM EST) Narrative Camilla Soto APRN, DNP - 01/03/2025 3:18 PM EST Camilla Soto APRN, DNP 01/03/2025 3:54 PM Critical Care Performed by: Camilla Soto APRN, DNP Authorized by: Camilla Soto APRN, DNP Critical care provider statement: Critical care time (minutes): 75 Critical care time was exclusive of: Separately billable procedures and treating other patients Critical care was time spent personally by me on the following activities: Development of treatment plan with patient or surrogate, discussions with consultants, discussions with primary provider, evaluation of patient's response to treatment, examination of patient, ordering and performing treatments and interventions, ordering and review of laboratory studies, ordering and review of radiographic studies and ventilator management Camilla Soto APRN, DNP IN CLINIC/BEDSIDE ORDERAB LES Final Result * Prepare Fresh Frozen Plasma: 1 Units (01/03/2025 3:02 PM EST) Product Code X3496B59 CH BLOO D BANK Dispense Status Transfused BLOOD BANK Blood Expiration Date BLOOD BANK Unit Number [id number] CH B LOOD BANK Product Blood Type 6200 BLOOD BANK Blood Type A+ BLOOD BANK Blood Venous blood specimen / Unknown us Camilla Soto SEO ASSISTANT, DNP BLOOD BANK PRODUCT ORDERA BLES Final Result BLOOD BANK [address] [place] [address], * (ABNORMAL) Blood gas, arterial (01/03/2025 2:56 PM EST) pH, Arterial 7.31(L) 7.35 - 7.45 LAB HEMATOLOGY METHOD 01/03/2025 3:02 PM EST [facility] pCO2, Arterial 41 32 - 45 mmHg LAB HEMATOLOGY METHOD 01/03/2025 3:02 PM EST [facility] pO2, Arterial 107 83 - 108 mmHg LAB HEMATOLOGY METHOD 01/03/2025 3:02 PM EST [facility] SO2, Measured, Arterial 99(H) 94 - 98 % LAB HEMATOLOGY METHOD 01/03/2025 3:02 PM EST [facility] Base Excess, Arterial -5.2(L) -2.0 - 3.0 mmol/L LAB HEMATOLOGY METHOD 01/03/2025 3:02 PM EST [facility] Bicarbonate, Calculated, Arterial 21(L) 22 - 26 mmol/L LAB HEMATOLOGY METHOD 01/03/2025 3:02 PM EST [facility] Hematocrit, Whole Blood 25.7(L) 40.0 - 51.0 % LAB HEMATOLOGY METHOD 01/03/2025 3:02 PM EST [facility] Sodium, Whole Blood 139 136 - 145 mmol/L LAB HEMATOLOGY METHOD 01/03/2025 3:02 PM EST [facility] Potassium, Whole Blood 4.6 3.6 - 4.9 mmol/L LAB HEMATOLOGY METHOD 01/03/2025 3:02 PM EST [facility] Chloride, Whole Blood 115(H) 97 - 107 mmol/L LAB HEMATOLOGY METHOD 01/03/2025 3:02 PM EST [facility] Glucose, Whole Blood 146(H) 74 - 99 mg/dL LAB HEMATOLOGY METHOD 01/03/2025 3:02 PM EST [facility] Ionized Calcium, Whole Blood 5.1 4.6 - 5.1 mg/dL LAB HEMATOLOGY METHOD 01/03/2025 3:02 PM EST [facility] Lactate, Arterial, Whole Blood 1.7(H) 0.5 - 1.6 mmol/L LAB HEMATOLOGY METHOD 01/03/2025 3:02 PM EST [facility] Blood Arterial blood specimen / Unknown Arterial Puncture / Unknown 01/03/2025 2:56 PM EST 01/03/2025 3:01 PM EST Satnam Beckford MD LAB BLOOD ORDERABLES Final Result Performing Organization Address City/[facility]/ZIP Co de Phone Number [facility] [address] [place] [address] * Phosphorus, Plasma (01/03/2025 2:54 PM EST) Phosphorus, Plasma 4.4 2.5 - 4.5 mg/dL 01/03/2025 3:58 PM EST [facility] Blood Venous blood specimen / Unknown Venipuncture / Unknown 01/03/2025 2:54 PM EST 01/03/2025 3:01 PM EST Satnam Beckford MD LAB BLOOD ORDERABLES Final Result [facility] [address] [place] [address] * (ABNORMAL) Magnesium, Plasma (01/03/2025 2:54 PM EST) Magnesium, Plasma 1.2(L) 1.9 - 2.4 mg/dL 01/03/2025 3:58 PM EST [facility] Blood Venous blood specimen / Unknown Venipuncture / Unknown 01/03/2025 2:54 PM EST 01/03/2025 3:01 PM EST us Satnam Beckford MD LAB BLOOD ORDERABLES Final Result [facility] [address] [place] [address] * (ABNORMAL) Comprehensive metabolic panel (01/03/2025 2:54 PM EST) Glucose, Plasma 146(H) 74 - 99 mg/dL 01/03/2025 3:58 PM EST [facility] BUN, Plasma 17 7 - 21 mg/dL 01/03/2025 3:58 PM EST [facility] Creatinine, Plasma 1.02 0.70 - 1.20 mg/dL 01/03/2025 3:58 PM EST [facility] BUN/Creatinine Ratio 17 01/03/2025 3:58 PM EST [facility] Sodium, Plasma 140 136 - 145 mmol/L 01/03/2025 3:58 PM EST [facility] Potassium, Plasma 4.9 3.6 - 4.9 mmol/L 01/03/2025 3:58 PM EST [facility] Chloride, Plasma 114(H) 97 - 107 mmol/L 01/03/2025 3:58 PM EST [facility] CO2, Plasma 19(L) 22 - 29 mmol/L 01/03/2025 3:58 PM EST [facility] Anion Gap 7 6 - 16 mmol/L 01/03/2025 3:58 PM EST [facility] Total Calcium, Plasma 8.5(L) 8.9 - 10.2 mg/dL 01/03/2025 3:58 PM EST [facility] Total Protein 3.7(L) 6.3 - 7.9 g/dL 01/03/2025 3:58 PM EST [facility] Albumin, Plasma 2.2(L) 3.5 - 5.2 g/dL 01/03/2025 3:58 PM EST [facility] AST, Plasma 699(H) 10 - 50 U/L 01/03/2025 3:58 PM EST [facility] ALT, Plasma 243(H) 10 - 50 U/L 01/03/2025 3:58 PM EST [facility] Alkaline Phosphatase, Plasma 86 40 - 115 U/L 01/03/2025 3:58 PM EST [facility] Total Bilirubin, Plasma 11.2(H) 0.2 - 1.1 mg/dL 01/03/2025 3:58 PM EST [facility] eGFRcr 92.4 mL/min/1.7 3m*2 01/03/2025 3:58 PM EST [facility] Comment:Reported eGFRcr in m L/min/1.73m2 is based the CKD-EPI 2020 equation that does not use a race coefficient. Blood Venous blood specimen / Unknown Venipuncture / Unknown 01/03/2025 2:54 PM EST 01/03/2025 3:01 PM EST us Satnam Beckford MD LAB BLOOD ORDERABLES Final Result [facility] [address] [place] [address] * (ABNORMAL) CBC and Differential (01/03/2025 2:54 PM EST) WBC Count 6.95 3.70 - 10.30 10*3/uL LAB HEMATOLOGY METHOD 01/03/2025 3:09 PM EST [facility] RBC Count 2.80(L) 4.60 - 6.10 10*6/uL LAB HEMATOLOGY METHOD 01/03/2025 3:09 PM EST [facility] HGB 8.3(L) 13.7 - 17.5 g/dL LAB HEMATOLOGY METHOD 01/03/2025 3:09 PM EST [facility] HCT 26.1(L) 40.0 - 51.0 % LAB HEMATOLOGY METHOD 01/03/2025 3:09 PM EST [facility] Platelet Count 61(L) 155 - 369 10*3/uL LAB HEMATOLOGY METHOD 01/03/2025 3:09 PM EST [facility] MCV 93 79 - 98 fL LAB HEMATOLOGY METHOD 01/03/2025 3:09 PM EST [facility] Comment:Results inconsistent with previous lab findings. MCH 29.6 26.0 - 32.0 pg LAB HEMATOLOGY METHOD 01/03/2025 3:09 PM EST [facility] MCHC 31.8 30.7 - 35.5 g/dL LAB HEMATOLOGY METHOD 01/03/2025 3:09 PM [facility] RDW 22.7(H) 11.5 - 14.5 % LAB HEMATOLOGY METHOD 01/03/2025 3:09 PM [facility] MPV 9.4 8.8 - 12.5 fL LAB HEMATOLOGY METHOD 01/03/2025 3:09 PM [facility] nRBC 0.0 <=0.0 per 100 WBCs LAB HEMATOLOGY METHOD 01/03/2025 3:09 PM [facility] Differential Type Automated LAB HEMATOLOGY METHOD 01/03/2025 3:09 PM [facility] Neutrophils % 86 % LAB HEMATOLOGY METHOD 01/03/2025 3:09 PM [facility] Lymphocytes % 5 % LAB HEMATOLOGY METHOD 01/03/2025 3:09 PM [facility] Monocytes % 9 % LAB HEMATOLOGY METHOD 01/03/2025 3:09 PM [facility] Eosinophils % 0 % LAB HEMATOLOGY METHOD 01/03/2025 3:09 PM [facility] Basophils % 0 % LAB HEMATOLOGY METHOD 01/03/2025 3:09 PM [facility] Immature Granulocytes % 0 % LAB HEMATOLOGY METHOD 01/03/2025 3:09 PM [facility] Neutrophils Absolute 5.97 1.60 - 6.10 10*3/uL LAB HEMATOLOGY METHOD 01/03/2025 3:09 PM [facility] Lymphocytes Absolute 0.31(L) 1.20 - 3.90 10*3/uL LAB HEMATOLOGY METHOD 01/03/2025 3:09 PM [facility] Monocytes Absolute 0.61 0.30 - 0.90 10*3/uL LAB HEMATOLOGY METHOD 01/03/2025 3:09 PM [facility] Eosinophils Absolute 0.03 0.00 - 0.50 10*3/uL LAB HEMATOLOGY METHOD 01/03/2025 3:09 PM [facility] Basophils Absolute 0.01 0.00 - 0.10 10*3/uL LAB HEMATOLOGY METHOD 01/03/2025 3:09 PM [facility] Immature Granulocytes Absolute 0.02 0.00 - 0.06 10*3/uL LAB HEMATOLOGY METHOD 01/03/2025 3:09 PM [facility] Blood Venous blood specimen / Unknown Venipuncture / Unknown 01/03/2025 2:54 PM EST 01/03/2025 3:01 PM EST Narrative [facility] - 01/03/2025 3:09 PM EST Therapeutic decision making should be based on absolute values, rather than percentages. us Satnam Beckford MD LAB BLOOD ORDERABLES Final Result Performing Organization Address [facility]/ZIP Co de Phone Number [facility] [address] [place] [address] * (ABNORMAL) TEG Global Hemostasis with Lysis (01/03/2025 2:54 PM EST) R, Lysis 8.2 4.6 - 9.1 min 01/03/2025 4:03 PM EST [facility] MA, Rapid, Lysis 40.1(L) 52.0 - 70.0 mm 01/03/2025 4:03 PM EST [facility] MA, Fibrinogen, Lysis 8.8(L) 15.0 - 32.0 mm 01/03/2025 4:03 PM EST [facility] LY30 0.0 0.0 - 2.6 % 01/03/2025 4:03 PM EST [facility] Blood Venous blood specimen / Unknown Venipuncture / Unknown 01/03/2025 2:54 PM EST 01/03/2025 3:01 PM EST us Josafat Rivera MD LAB BLOOD ORDERABLES Final Res ult Performing Organization Address City/[facility]/ZIP Co de Phone Number [facility] [address] [place] [address] * (ABNORMAL) Fibrinogen (01/03/2025 2:54 PM EST) Fibrinogen, Quantitative (Clottable) 134(L) 208 - 459 mg/dL LAB COAGULATION METHOD 01/03/2025 3:52 PM EST [facility] Blood Venous blood specimen / Unknown Venipuncture / Unknown 01/03/2025 2:54 PM EST 01/03/2025 3:01 PM EST us Josafat Rivera MD LAB BLOOD ORDERABLES Final Res ult Performing Organization Address [facility] Co de Phone Number [facility] [address] [place] [address] * (ABNORMAL) APTT (01/03/2025 2:54 PM EST) aPTT 48(H) 25 - 35 sec LAB COAGULATION METHOD 01/03/2025 3:52 PM EST [facility] Blood Venous blood specimen / Unknown Venipuncture / Unknown 01/03/2025 2:54 PM EST 01/03/2025 3:01 PM EST us Josafat Rivera MD LAB BLOOD ORDERABLES Final Res ult Performing Organization Address [facility] Phone Number [facility] [address] [place] [address] * (ABNORMAL) Protime-INR (01/03/2025 2:54 PM EST) Prothrombin Time 25.3(H) 12.0 - 14.3 sec LAB COAGULATION METHOD 01/03/2025 3:52 PM EST [facility] INR 2.3(H) 0.9 - 1.1 LAB COAGULATION METHOD 01/03/2025 3:52 PM EST [facility] Blood Venous blood specimen / Unknown Venipuncture / Unknown 01/03/2025 2:54 PM EST 01/03/2025 3:01 PM EST Narrative [facility] - 01/03/2025 3:52 PM EST OPTIMAL INR RANGES FOR PATIENT ON ORAL ANTICOAGULANT THERAPY Prevention of venous thromboembolism INR 2.0 to 3.0 In patients with heart disease: Atrial fibrillation INR 2.0 to 3.0 Valvular heart disease INR 2.0 to 3.0 Tissue heart valves INR 2.0 to 3.0 Mechanical prosthetic valves INR 2.5 to 3.5 Prevention of recurrent OR INR 2.5 to 3.5 us Josafat Rivera MD LAB BLOOD ORDERABLES Final Res ult Performing Organization Address City/[facility]/ZIP Co de Phone Number [facility] [address] [place] [address] * (ABNORMAL) POCT arterial blood gas gem (01/03/2025 2:13 PM EST) pH, Arterial 7.34(L) 7.35 - 7.45 01/03/2025 2:14 PM EST [facility] pCO2, Arterial 35 32 - 45 mm Hg 01/03/2025 2:14 PM EST [facility] pO2, Arterial 159(H) 83 - 108 mm Hg 01/03/2025 2:14 PM EST [facility] SO2, Arterial 99(H) 94 - 98 % 01/03/2025 2:14 PM EST [facility] Base Excess, Arterial -6.3(L) -2 - 3 mmol/L 01/03/2025 2:14 PM EST [facility] HCO3, Arterial 18.9(L) 22 - 26 mmol/L 01/03/2025 2:14 PM EST [facility] Total Hemoglobin, Arterial, Whole Blood 8.1(L) 13.7 - 17.5 g/dL 01/03/2025 2:14 PM EST [facility] Hematocrit, Arterial 24.0(L) 40 - 51.0 % 01/03/2025 2:14 PM [facility] Sodium, Arterial 139 136 - 145 mmol/L 01/03/2025 2:14 PM EST [facility] Potassium, Arterial 4.8 3.6 - 4.9 mmol/L 01/03/2025 2:14 PM [facility] Chloride, Whole Blood 112(H) 97 - 107 mmol/L 01/03/2025 2:14 PM EST [facility] Glucose, Arterial 165(H) 74 - 99 mg/dL 01/03/2025 2:14 PM [facility] Ionized Calcium, Arterial 5.4(H) 4.6 - 5.1 mg/dL 01/03/2025 2:14 PM EST [facility] Lactate, Arterial 1.5 0.5 - 1.6 mmol/L 01/03/2025 2:14 PM EST [facility] Body Temperature 37.0 Celsius 01/03/2025 2:14 PM [facility] pH, Temp Corrected, Arterial 7.34(L) 7.35 - 7.45 01/03/2025 2:14 PM EST [facility] pCO2, Temp Corrected, Arterial 35 32 - 45 mm Hg 01/03/2025 2:14 PM EST [facility] pO2, Temp Corrected, Arterial 159(H) 83 - 108 mm Hg 01/03/2025 2:14 PM EST [facility] [facility] Shearing Machine Operator ID Ronnie [place] 01/03/2025 2:14 PM EST [facility] Blood Whole blood specimen / Unknown 01/03/2025 2:13 PM EST 01/03/2025 2:14 PM EST us Satnam Beckford MD LAB POINT OF CARE T EST DOCKED DEVICE UNSOLICITED RESULTS Final Result Performing Organization Address City/State/[facility] Co de Phone Number [facility] [address] [place] [address] * (ABNORMAL) POCT arterial blood gas gem (01/03/2025 1:38 PM EST) pH, Arterial 7.34(L) 7.35 - 7.45 01/03/2025 1:40 PM EST [facility] pCO2, Arterial 36 32 - 45 mm Hg 01/03/2025 1:40 PM EST [facility] pO2, Arterial 157(H) 83 - 108 mm Hg 01/03/2025 1:40 PM EST [facility] SO2, Arterial 99(H) 94 - 98 % 01/03/2025 1:40 PM EST [facility] Base Excess, Arterial -5.8(L) -2 - 3 mmol/L 01/03/2025 1:40 PM EST [facility] HCO3, Arterial 19.4(L) 22 - 26 mmol/L 01/03/2025 1:40 PM EST [facility] Total Hemoglobin, Arterial, Whole Blood 8.5(L) 13.7 - 17.5 g/dL 01/03/2025 1:40 PM EST [facility] Hematocrit, Arterial 26.0(L) 40 - 51.0 % 01/03/2025 1:40 PM EST [facility] Sodium, Arterial 137 136 - 145 mmol/L 01/03/2025 1:40 PM EST [facility] Potassium, Arterial 5.1(H) 3.6 - 4.9 mmol/L 01/03/2025 1:40 PM EST [facility] Chloride, Whole Blood 112(H) 97 - 107 mmol/L 01/03/2025 1:40 PM EST [facility] Glucose, Arterial 143(H) 74 - 99 mg/dL 01/03/2025 1:40 PM EST [facility] Ionized Calcium, Arterial 5.4(H) 4.6 - 5.1 mg/dL 01/03/2025 1:40 PM EST [facility] Lactate, Arterial 1.6 0.5 - 1.6 mmol/L 01/03/2025 1:40 PM EST [facility] Body Temperature 37.0 Celsius 01/03/2025 1:40 PM EST [facility] pH, Temp Corrected, Arterial 7.34(L) 7.35 - 7.45 01/03/2025 1:40 PM EST [facility] pCO2, Temp Corrected, Arterial 36 32 - 45 mm Hg 01/03/2025 1:40 PM EST [facility] pO2, Temp Corrected, Arterial 157(H) 83 - 108 mm Hg 01/03/2025 1:40 PM EST [facility] Shearing Machine Operator ID Ronnie [place] 01/03/2025 1:40 PM EST [facility] Blood Whole blood specimen / Unknown 01/03/2025 1:38 PM EST 01/03/2025 1:40 PM EST Satnam Beckford MD LAB POINT OF CARE T EST DOCKED DEVICE UNSOLICITED RESULTS Final Result Performing Organization Address City/State/[facility] Co de Phone Number [facility] [address] [place] [id number] * Transfuse RBC (01/03/2025 12:59 PM EST) us Josafat Rivera MD BLOOD TRANSFUSION ORDERABLES F inal Result * (ABNORMAL) POCT arterial blood gas gem (01/03/2025 12:54 PM EST) pH, Arterial 7.33(L) 7.35 - 7.45 01/03/2025 12:56 PM EST [facility] pCO2, Arterial 38 32 - 45 mm Hg 01/03/2025 12:56 PM EST [facility] pO2, Arterial 182(H) 83 - 108 mm Hg 01/03/2025 12:56 PM [facility] SO2, Arterial 99(H) 94 - 98 % 01/03/2025 12:56 PM [facility] Base Excess, Arterial -5.5(L) -2 - 3 mmol/L 01/03/2025 12:56 PM [facility] HCO3, Arterial 20.0(L) 22 - 26 mmol/L 01/03/2025 12:56 PM [facility] Total Hemoglobin, Arterial, Whole Blood 7.8(L) 13.7 - 17.5 g/dL 01/03/2025 12:56 PM [facility] Hematocrit, Arterial 23.0(L) 40 - 51.0 % 01/03/2025 12:56 PM [facility] Sodium, Arterial 138 136 - 145 mmol/L 01/03/2025 12:56 PM [facility] Potassium, Arterial 5.0(H) 3.6 - 4.9 mmol/L 01/03/2025 12:56 PM [facility] Chloride, Whole Blood 114(H) 97 - 107 mmol/L 01/03/2025 12:56 PM [facility] Glucose, Arterial 139(H) 74 - 99 mg/dL 01/03/2025 12:56 PM [facility] Ionized Calcium, Arterial 5.4(H) 4.6 - 5.1 mg/dL 01/03/2025 12:56 PM [facility] Lactate, Arterial 1.3 0.5 - 1.6 mmol/L 01/03/2025 12:56 PM [facility] Body Temperature 37.0 Celsius 01/03/2025 12:56 PM [facility] pH, Temp Corrected, Arterial 7.33(L) 7.35 - 7.45 01/03/2025 12:56 PM [facility] pCO2, Temp Corrected, Arterial 38 32 - 45 mm Hg 01/03/2025 12:56 PM [facility] pO2, Temp Corrected, Arterial 182(H) 83 - 108 mm Hg 01/03/2025 12:56 PM [facility] Shearing Machine Operator ID Ronnie [place] 01/03/2025 12:56 PM [facility] Blood Whole blood specimen / Unknown 01/03/2025 12:54 PM EST 01/03/2025 12:56 PM EST Satnam Beckford MD LAB POINT OF CARE T EST DOCKED DEVICE UNSOLICITED RESULTS Final Result [facility] [address] [place] [address] * Transfuse fresh frozen plasma (01/03/2025 12:25 PM EST) Result [facility] Josafat Rivera MD BLOOD TRANSFUSION ORDERABLES F inal Result * Transfuse platelets (01/03/2025 11:59 AM EST) Josafat Rivera MD BLOOD TRANSFUSION ORDERABLES F inal Result * Exception to Standard Practice, Pathologist Interpretation (01/03/2025 11:54 AM EST) Clinical Diagnosis, Exception to Standard Practice Liver transplan 01/05/2025 11:43 AM EST BLOOD BANK Interpretation , Exception to Standard Practice Your patient, who is RhD-negative, required transfusion of 1 unit apheresis platelet on 01/03/2025. Considering the available inventory and the necessity of the transfusion, RhD-positive platelets were transfused. This was deemed to be in the best interest of the patient at the time of transfusion. Currently, the risk of alloimmunization to the D antigen from a single donor (apheresis) platelet is very low, particularly in hospitalized and/or immunocompromised patients. Administration of Rh(D) Immune Globulin for the suppression of Rh isoimmunization may be considered, if clinically indicated. A resident was involved in the service. I attest I examined the relevant preparations for the specimens and confirmed the diagnosis or interpretation. 01/05/2025 11:43 AM EST BLOOD BANK Pathologist Signature, Exception to Standard Practice Reviewed by: Gaston Serrano MD 01/05/2025 11:43 AM EST [facility] LAB CP ASR DISCLAIMER Yes 01/05/2025 11:43 AM EST BLOOD BANK 01/03/2025 11:5 4 AM EST 01/05/2025 9:20 AM EST Maciel Olson MD LAB BLOOD BANK TEST ORDERABLES F inal Result Performing Organization Address [facility] Co de Phone Number BLOOD BANK [address] [place] [address], * Prepare Leukocyte Reduced Platelets: 1 Units (01/03/2025 11:49 AM EST) Product Code [id number] CH BLOO D BANK Dispense Status Transfused BLOOD BANK Blood Expiration Date [id number] BLOOD BANK Unit Number [id number] CH B LOOD BANK Product Blood Type 6200 BLOOD BANK Blood Type A+ BLOOD BANK Blood Venous blood specimen / Unknown Josafat Rivera MD BLOOD BANK PRODUCT ORDERABLES Final Result Performing Organization Address [facility] de Phone Number BLOOD BANK [address] [place] [address], * (ABNORMAL) TEG Global Hemostasis with Lysis (01/03/2025 11:46 AM EST) R, Lysis 9.9(H) 4.6 - 9.1 min 01/03/2025 12:55 PM EST [facility] MA, Rapid, Lysis <40.0(L) 52.0 - 70.0 mm 01/03/2025 12:55 PM EST [facility] MA, Fibrinogen, Lysis 8.4(L) 15.0 - 32.0 mm 01/03/2025 12:55 PM EST [facility] LY30 0.0 0.0 - 2.6 % 01/03/2025 12:55 PM EST [facility] Blood Arterial blood specimen / Unknown 01/03/2025 11:46 AM EST 01/03/2025 11:52 AM EST Comment:Pre-op diagnosis: Decompensation of cirrhosis of liver (CMS/HCC) [K72.90, K74.60] Josafat Rivera MD LAB BLOOD ORDERABLES Final Res ult Performing Organization Address [facility]/ZIP Co de Phone Number [facility] [address] [place] [address] * (ABNORMAL) APTT (01/03/2025 11:46 AM EST) aPTT 59(H) 25 - 35 sec LAB COAGULATION METHOD 01/03/2025 12:20 PM EST [facility] Blood Arterial blood specimen / Unknown 01/03/2025 11:46 AM EST 01/03/2025 11:51 AM EST Comment:Pre-op diagnosis: Decompensation of cirrhosis of liver (CMS/HCC) [K72.90, K74.60] us Josafat Rivera MD LAB BLOOD ORDERABLES Final Res ult Performing Organization Address City/[facility]/ZIP Co de Phone Number [facility] [address] [place] [address] * (ABNORMAL) Prothrombin Time/INR (01/03/2025 11:46 AM EST) Prothrombin Time 25.6(H) 12.0 - 14.3 sec LAB COAGULATION METHOD 01/03/2025 12:20 PM EST [facility] INR 2.3(H) 0.9 - 1.1 LAB COAGULATION METHOD 01/03/2025 12:20 PM EST [facility] Blood Arterial blood specimen / Unknown 01/03/2025 11:46 AM EST 01/03/2025 11:51 AM EST Comment:Pre-op diagnosis: Decompensation of cirrhosis of liver (CMS/HCC) [K72.90, K74.60] Narrative [facility] - 01/03/2025 12:20 PM EST OPTIMAL INR RANGES FOR PATIENT ON ORAL ANTICOAGULANT THERAPY Prevention of venous thromboembolism INR 2.0 to 3.0 In patients with heart disease: Atrial fibrillation INR 2.0 to 3.0 Valvular heart disease INR 2.0 to 3.0 Tissue heart valves INR 2.0 to 3.0 Mechanical prosthetic valves INR 2.5 to 3.5 Prevention of recurrent OR INR 2.5 to 3.5 us Josafat Rivera MD LAB BLOOD ORDERABLES Final Res ult [facility] [address] [place] [address] * (ABNORMAL) Fibrinogen, Quantitative (Clottable) (01/03/2025 11:46 AM EST) Fibrinogen, Quantitative (Clottable) 136(L) 208 - 459 mg/dL LAB COAGULATION METHOD 01/03/2025 12:20 PM EST [facility] Blood Arterial blood specimen / Unknown 01/03/2025 11:46 AM EST 01/03/2025 11:51 AM EST Comment:Pre-op diagnosis: Decompensation of cirrhosis of liver (CMS/HCC) [K72.90, K74.60] Josafat Rivera MD LAB BLOOD ORDERABLES Final Res ult Performing Organization Address City/[facility]/ZIP Co de Phone Number [facility] [address] [place] [address] * (ABNORMAL) Platelet Count, Blood (01/03/2025 11:46 AM EST) Platelet Count 52(L) 155 - 369 10*3/uL LAB HEMATOLOGY METHOD 01/03/2025 11:59 AM EST [facility] Blood Arterial blood specimen / Unknown 01/03/2025 11:46 AM EST 01/03/2025 11:51 AM EST Comment:Pre-op diagnosis: Decompensation of cirrhosis of liver (CMS/HCC) [K72.90, K74.60] Josafat Rivera MD LAB BLOOD ORDERABLES Final Res ult Performing Organization Address City/[facility]/ZIP Co de Phone Number [facility] [address] [place] [address] * (ABNORMAL) POCT arterial blood gas gem (01/03/2025 11:42 AM EST) pH, Arterial 7.28(L) 7.35 - 7.45 01/03/2025 11:43 AM EST [facility] pCO2, Arterial 43 32 - 45 mm Hg 01/03/2025 11:43 AM EST [facility] pO2, Arterial 207(H) 83 - 108 mm Hg 01/03/2025 11:43 AM [facility] SO2, Arterial 99(H) 94 - 98 % 01/03/2025 11:43 AM [facility] Base Excess, Arterial -6.2(L) -2 - 3 mmol/L 01/03/2025 11:43 AM [facility] HCO3, Arterial 20.2(L) 22 - 26 mmol/L 01/03/2025 11:43 AM [facility] Total Hemoglobin, Arterial, Whole Blood 8.5(L) 13.7 - 17.5 g/dL 01/03/2025 11:43 AM [facility] Hematocrit, Arterial 26.0(L) 40 - 51.0 % 01/03/2025 11:43 AM [facility] Sodium, Arterial 139 136 - 145 mmol/L 01/03/2025 11:43 AM [facility] Potassium, Arterial 4.7 3.6 - 4.9 mmol/L 01/03/2025 11:43 AM [facility] Chloride, Whole Blood 109(H) 97 - 107 mmol/L 01/03/2025 11:43 AM [facility] Glucose, Arterial 166(H) 74 - 99 mg/dL 01/03/2025 11:43 AM [facility] Ionized Calcium, Arterial 5.7(H) 4.6 - 5.1 mg/dL 01/03/2025 11:43 AM [facility] Lactate, Arterial 1.7(H) 0.5 - 1.6 mmol/L 01/03/2025 11:43 AM [facility] Body Temperature 37.0 Celsius 01/03/2025 11:43 AM [facility] pH, Temp Corrected, Arterial 7.28(L) 7.35 - 7.45 01/03/2025 11:43 AM [facility] pCO2, Temp Corrected, Arterial 43 32 - 45 mm Hg 01/03/2025 11:43 AM [facility] pO2, Temp Corrected, Arterial 207(H) 83 - 108 mm Hg 01/03/2025 11:43 AM [facility] Shearing Machine Operator ID Ronnie [place] 01/03/2025 11:43 AM [facility] Blood Whole blood specimen / Unknown 01/03/2025 11:42 AM EST 01/03/2025 11:43 AM EST Satnam Beckford MD LAB POINT OF CARE T EST DOCKED DEVICE UNSOLICITED RESULTS Final Result Performing Organization Address City/State/[facility] Co de Phone Number [facility] [address] [place] [address] * Transfuse RBC (01/03/2025 11:30 AM EST) Josafat Rivera MD BLOOD TRANSFUSION ORDERABLES F inal Result * Transfuse fresh frozen plasma (01/03/2025 11:28 AM EST) Josafat Rivera MD BLOOD TRANSFUSION ORDERABLES F inal Result * (ABNORMAL) POCT arterial blood gas gem (01/03/2025 11:11 AM EST) pH, Arterial 7.28(L) 7.35 - 7.45 01/03/2025 11:12 AM EST [facility] pCO2, Arterial 40 32 - 45 mm Hg 01/03/2025 11:12 AM EST [facility] pO2, Arterial 292(H) 83 - 108 mm Hg 01/03/2025 11:12 AM EST [facility] SO2, Arterial 100(H) 94 - 98 % 01/03/2025 11:12 AM EST [facility] Base Excess, Arterial -7.4(L) -2 - 3 mmol/L 01/03/2025 11:12 AM EST [facility] HCO3, Arterial 18.8(L) 22 - 26 mmol/L 01/03/2025 11:12 AM EST [facility] Total Hemoglobin, Arterial, Whole Blood 8.0(L) 13.7 - 17.5 g/dL 01/03/2025 11:12 AM EST [facility] Hematocrit, Arterial 24.0(L) 40 - 51.0 % 01/03/2025 11:12 AM EST [facility] Sodium, Arterial 138 136 - 145 mmol/L 01/03/2025 11:12 AM EST [facility] Potassium, Arterial 4.3 3.6 - 4.9 mmol/L 01/03/2025 11:12 AM EST [facility] Chloride, Whole Blood 110(H) 97 - 107 mmol/L 01/03/2025 11:12 AM EST [facility] Glucose, Arterial 213(H) 74 - 99 mg/dL 01/03/2025 11:12 AM EST [facility] Ionized Calcium, Arterial 5.4(H) 4.6 - 5.1 mg/dL 01/03/2025 11:12 AM EST [facility] Lactate, Arterial 1.8(H) 0.5 - 1.6 mmol/L 01/03/2025 11:12 AM EST [facility] Body Temperature 37.0 Celsius 01/03/2025 11:12 AM EST [facility] pH, Temp Corrected, Arterial 7.28(L) 7.35 - 7.45 01/03/2025 11:12 AM EST [facility] pCO2, Temp Corrected, Arterial 40 32 - 45 mm Hg 01/03/2025 11:12 AM EST [facility] pO2, Temp Corrected, Arterial 292(H) 83 - 108 mm Hg 01/03/2025 11:12 AM EST [facility] Shearing Machine Operator ID Ronnie [place] 01/03/2025 11:12 AM EST [facility] Blood Whole blood specimen / Unknown 01/03/2025 11:11 AM EST 01/03/2025 11:12 AM EST Satnam Beckford MD LAB POINT OF CARE T EST DOCKED DEVICE UNSOLICITED RESULTS Final Result Performing Organization Address City/State/[facility] de Phone Number [facility] [address] [place] [address] * Transfuse RBC (01/03/2025 11:00 AM EST) us Josafat Rivera MD BLOOD TRANSFUSION ORDERABLES F inal Result * (ABNORMAL) POCT arterial blood gas gem (01/03/2025 10:58 AM EST) pH, Arterial 7.36 7.35 - 7.45 01/03/2025 10:59 AM EST [facility] pCO2, Arterial 34 32 - 45 mm Hg 01/03/2025 10:59 AM EST [facility] pO2, Arterial 330(H) 83 - 108 mm Hg 01/03/2025 10:59 AM EST [facility] SO2, Arterial 100(H) 94 - 98 % 01/03/2025 10:59 AM EST [facility] Base Excess, Arterial -5.7(L) -2 - 3 mmol/L 01/03/2025 10:59 AM [facility] HCO3, Arterial 19.2(L) 22 - 26 mmol/L 01/03/2025 10:59 AM [facility] Total Hemoglobin, Arterial, Whole Blood 8.0(L) 13.7 - 17.5 g/dL 01/03/2025 10:59 AM [facility] Hematocrit, Arterial 24.0(L) 40 - 51.0 % 01/03/2025 10:59 AM [facility] Sodium, Arterial 138 136 - 145 mmol/L 01/03/2025 10:59 AM [facility] Potassium, Arterial 4.5 3.6 - 4.9 mmol/L 01/03/2025 10:59 AM [facility] Chloride, Whole Blood 111(H) 97 - 107 mmol/L 01/03/2025 10:59 AM [facility] Glucose, Arterial 111(H) 74 - 99 mg/dL 01/03/2025 10:59 AM [facility] Ionized Calcium, Arterial 5.3(H) 4.6 - 5.1 mg/dL 01/03/2025 10:59 AM [facility] Lactate, Arterial 1.3 0.5 - 1.6 mmol/L 01/03/2025 10:59 AM [facility] Body Temperature 37.0 Celsius 01/03/2025 10:59 AM [facility] pH, Temp Corrected, Arterial 7.36 7.35 - 7.45 01/03/2025 10:59 AM [facility] pCO2, Temp Corrected, Arterial 34 32 - 45 mm Hg 01/03/2025 10:59 AM [facility] pO2, Temp Corrected, Arterial 330(H) 83 - 108 mm Hg 01/03/2025 10:59 AM [facility] Shearing Machine Operator ID Ronnie [place] 01/03/2025 10:59 AM [facility] Blood Whole blood specimen / Unknown 01/03/2025 10:58 AM EST 01/03/2025 10:59 AM EST Satnam Beckford MD LAB POINT OF CARE T EST DOCKED DEVICE UNSOLICITED RESULTS Final Result [facility] [address] [place] [address] * (ABNORMAL) TEG Global Hemostasis with Lysis (01/03/2025 10:26 AM EST) R, Lysis 5.1 4.6 - 9.1 min 01/03/2025 11:30 AM EST [facility] MA, Rapid, Lysis <40.0(L) 52.0 - 70.0 mm 01/03/2025 11:30 AM EST [facility] MA, Fibrinogen, Lysis 9.4(L) 15.0 - 32.0 mm 01/03/2025 11:30 AM EST [facility] LY30 0.1 0.0 - 2.6 % 01/03/2025 11:30 AM EST [facility] Blood Arterial blood specimen / Unknown 01/03/2025 10:26 AM EST 01/03/2025 10:35 AM EST Comment:Pre-op diagnosis: Decompensation of cirrhosis of liver (CMS/HCC) [K72.90, K74.60] us Josafat Rivera MD LAB BLOOD ORDERABLES Final Res ult Performing Organization Address [facility] Co de Phone Number [facility] [address] [place] [address] * (ABNORMAL) APTT (01/03/2025 10:26 AM EST) aPTT 46(H) 25 - 35 sec LAB COAGULATION METHOD 01/03/2025 11:06 AM EST [facility] Blood Arterial blood specimen / Unknown 01/03/2025 10:26 AM EST 01/03/2025 10:33 AM EST Comment:Pre-op diagnosis: Decompensation of cirrhosis of liver (CMS/HCC) [K72.90, K74.60] us Josafat Rivera MD LAB BLOOD ORDERABLES Final Res ult Performing Organization Address City/[facility]/ZIP Co de Phone Number [facility] [address] [place] [address] * (ABNORMAL) Prothrombin Time/INR (01/03/2025 10:26 AM EST) Prothrombin Time 23.6(H) 12.0 - 14.3 sec LAB COAGULATION METHOD 01/03/2025 11:06 AM EST [facility] INR 2.1(H) 0.9 - 1.1 LAB COAGULATION METHOD 01/03/2025 11:06 AM EST [facility] Blood Arterial blood specimen / Unknown 01/03/2025 10:26 AM EST 01/03/2025 10:33 AM EST Comment:Pre-op diagnosis: Decompensation of cirrhosis of liver (CMS/HCC) [K72.90, K74.60] Narrative [facility] - 01/03/2025 11:06 AM EST OPTIMAL INR RANGES FOR PATIENT ON ORAL ANTICOAGULANT THERAPY Prevention of venous thromboembolism INR 2.0 to 3.0 In patients with heart disease: Atrial fibrillation INR 2.0 to 3.0 Valvular heart disease INR 2.0 to 3.0 Tissue heart valves INR 2.0 to 3.0 Mechanical prosthetic valves INR 2.5 to 3.5 Prevention of recurrent OR INR 2.5 to 3.5 Josafat Rivera MD LAB BLOOD ORDERABLES Final Res ult Performing Organization Address City/[facility]/ZIP Co de Phone Number [address] [address] * (ABNORMAL) Fibrinogen, Quantitative (Clottable) (01/03/2025 10:26 AM EST) Fibrinogen, Quantitative (Clottable) 147(L) 208 - 459 mg/dL LAB COAGULATION METHOD 01/03/2025 11:06 AM EST [facility] Blood Arterial blood specimen / Unknown 01/03/2025 10:26 AM EST 01/03/2025 10:33 AM EST Comment:Pre-op diagnosis: Decompensation of cirrhosis of liver (CMS/HCC) [K72.90, K74.60] Josafat Rivera MD LAB BLOOD ORDERABLES Final Res ult [facility] [address] [place] [id number] * (ABNORMAL) Platelet Count, Blood (01/03/2025 10:26 AM EST) Platelet Count 57(L) 155 - 369 10*3/uL LAB HEMATOLOGY METHOD 01/03/2025 10:40 AM EST [facility] Blood Arterial blood specimen / Unknown 01/03/2025 10:26 AM EST 01/03/2025 10:33 AM EST Comment:Pre-op diagnosis: Decompensation of cirrhosis of liver (CMS/HCC) [K72.90, K74.60] us Josafat Rivera MD LAB BLOOD ORDERABLES Final Res ult [facility] [address] [place] [address] * Surgical Pathology Exam (01/03/2025 10:22 AM EST) Case Report Surgical Pathology Case: [id number] Authorizing Provider: Josafat Rivera MD Collected: 01/03/2025 1022 Ordering Location: [facility] A OPERATING ROOM Received: 01/05/2025 0755 Pathologist: Ashley De MD Specimen: Liver, [place] liver 01/07/2025 10:53 AM EST [facility] Final Diagnosis LIVER AND GALLBLADDER, [place], TRANSPLANTATION: - CIRRHOSIS (HISTORY OF ALCOHOLIC CIRRHOSIS) (SEE COMMENT). - NO PATHOLOGIC ABNORMALITIES, GALLBLADDER. 01/07/2025 10:53 AM EST [facility] at 1053 EST Comment Sections show extensive bridging fibrosis and nodule formation throughout the liver. The portal areas and fibrous septae show chronic inflammation and bile ductular proliferation. No interface changes or plasma cells are identified. There is no evidence of ductopenia or periductal fibrosis. No granulomas are seen. The lobule is negative for fatty change or ballooning degeneration of hepatocytes. No Bere hyalines or acidophilic bodies are identified. Clinical history of alcoholic cirrhosis is noted. This expanded liver is negative for histologic evidence of fatty change or alcoholic hepatitis. There is no evidence of dysplasia or malignancy. 01/07/2025 10:53 AM EST [facility] Clinical Information Decompensation of cirrhosis of liver (CMS/HCC) [K72.90, K74.60] 01/07/2025 10:53 AM EST [facility] Gross Description A. [place] LIVER The specimen is received fresh and placed in formalin, labeled n ative liver , and consists of a 1407.6 g, 22.3 x 15.7 x 7.2 cm explanted liver with attached gallbladder. The external surface is baker-brown and micronodular. The cut surface is baker-brown, fibrotic, and micronodular. No masses or area of necrosis are identified. The 10.2 cm in length intact gallbladder ranges in diameter from 3.1 cm at the neck to 4.8 cm at the fundus. The serosa is baker-green, smooth, and glistening. There is a moderate amount of green-black viscous bile. No choleliths are identified within the specimen or the container. The mucosa is green-brown, velvety, and has an average wall thickness of 0.2 cm. No masses or polyps are identified. [employer] sections are submitted as follows: A1: Vascular margins A2: Segment two A3: Segment three A4: Seven six A5: Segment eight A6: Gallbladder Cold Time: 0 CRISTAL Olsen ([facility]) 01/07/2025 10:53 AM [facility] Note: A resident was involved in the service. I attest I examined the relevant preparations for the specimens and confirmed the diagnosis or interpretation. 01/07/2025 10:53 AM [facility] Tissue Liver structure / Unknown 01/03/2025 10:22 AM EST 01/05/2025 7:55 AM EST Comment:Pre-op diagnosis: Decompensation of cirrhosis of liver (CMS/HCC) [K72.90, K74.60] us Josafat Rivera MD LAB PATHOLOGY ORDERABLES Final Result [facility] [address] [place] [address] * Transfuse fresh frozen plasma (01/03/2025 10:21 AM EST) us Josafat Rivera MD BLOOD TRANSFUSION ORDERABLES F inal Result * Transfuse RBC (01/03/2025 10:18 AM EST) Josafat Rivera MD BLOOD TRANSFUSION ORDERABLES F inal Result * (ABNORMAL) POCT arterial blood gas gem (01/03/2025 10:15 AM EST) pH, Arterial 7.33(L) 7.35 - 7.45 01/03/2025 10:17 AM [facility] pCO2, Arterial 37 32 - 45 mm Hg 01/03/2025 10:17 AM [facility] pO2, Arterial 204(H) 83 - 108 mm Hg 01/03/2025 10:17 AM [facility] SO2, Arterial 99(H) 94 - 98 % 01/03/2025 10:17 AM [facility] Base Excess, Arterial -5.9(L) -2 - 3 mmol/L 01/03/2025 10:17 AM [facility] HCO3, Arterial 19.5(L) 22 - 26 mmol/L 01/03/2025 10:17 AM [facility] Total Hemoglobin, Arterial, Whole Blood 7.5(L) 13.7 - 17.5 g/dL 01/03/2025 10:17 AM [facility] Hematocrit, Arterial 23.0(L) 40 - 51.0 % 01/03/2025 10:17 AM [facility] Sodium, Arterial 138 136 - 145 mmol/L 01/03/2025 10:17 AM [facility] Potassium, Arterial 4.3 3.6 - 4.9 mmol/L 01/03/2025 10:17 AM [facility] Glucose, Arterial 129(H) 74 - 99 mg/dL 01/03/2025 10:17 AM [facility] Ionized Calcium, Arterial 3.9(L) 4.6 - 5.1 mg/dL 01/03/2025 10:17 AM [facility] Lactate, Arterial 1.7(H) 0.5 - 1.6 mmol/L 01/03/2025 10:17 AM [facility] Body Temperature 37.0 Celsius 01/03/2025 10:17 AM [facility] pH, Temp Corrected, Arterial 7.33(L) 7.35 - 7.45 01/03/2025 10:17 AM [facility] pCO2, Temp Corrected, Arterial 37 32 - 45 mm Hg 01/03/2025 10:17 AM EST [facility] pO2, Temp Corrected, Arterial 204(H) 83 - 108 mm Hg 01/03/2025 10:17 AM EST [facility] Shearing Machine Operator ID Ronnie [place] 01/03/2025 10:17 AM EST [facility] Blood Whole blood specimen / Unknown 01/03/2025 10:15 AM EST 01/03/2025 10:17 AM EST Satnam Beckford MD LAB POINT OF CARE T EST DOCKED DEVICE UNSOLICITED RESULTS Final Result Performing Organization Address City/State/[facility] Co de Phone Number [facility] [address] [place] [address] * Prepare Fresh Frozen Plasma: 6 Units (01/03/2025 10:09 AM EST) Product Code [id number] BLOO D BANK Dispense Status Returned BLOOD BANK Blood Expiration Date BLOOD BANK Unit Number [id number] CH B LOOD BANK Product Blood Type 8400 CH BLOOD BANK Blood Type AB+ CH BLOOD BANK Product Code [id number] BLOO D BANK Dispense Status Transfused BLOOD BANK Blood Expiration Date BLOOD BANK Unit Number [id number] CH B LOOD BANK Product Blood Type 8400 CH BLOOD BANK Blood Type AB+ CH BLOOD BANK Product Code [id number] BLOO D BANK Dispense Status Returned BLOOD BANK Blood Expiration Date BLOOD BANK Unit Number [id number] CH B LOOD BANK Product Blood Type 6200 CH BLOOD BANK Blood Type A+ CH BLOOD BANK Product Code [id number] BLOO D BANK Dispense Status Transfused BLOOD BANK Blood Expiration Date BLOOD BANK Unit Number [id number] CH B LOOD BANK Product Blood Type 8400 CH BLOOD BANK Blood Type AB+ CH BLOOD BANK Product Code [id number] BLOO D BANK Dispense Status Returned BLOOD BANK Blood Expiration Date BLOOD BANK Unit Number [id number] CH B LOOD BANK Product Blood Type 6200 BLOOD BANK Blood Type A+ CH BLOOD BANK Product Code [id number] CH BLOO D BANK Dispense Status Returned BLOOD BANK Blood Expiration Date [id number] BLOOD BANK Unit Number [id number] CH B LOOD BANK Product Blood Type 2800 BLOOD BANK Blood Type AB- CH BLOOD BANK Blood Venous blood specimen / Unknown Josafat Rivera MD BLOOD BANK PRODUCT ORDERABLES Edited Result - Final BLOOD BANK [address] [place] [address], * Transfuse fresh frozen plasma (01/03/2025 10:00 AM EST) us Josafat Rivera MD BLOOD TRANSFUSION ORDERABLES F inal Result * Transfuse RBC (01/03/2025 9:58 AM EST) Result [facility] us Josafat Rivera MD BLOOD TRANSFUSION ORDERABLES F inal Result * Transfuse fresh frozen plasma (01/03/2025 9:49 AM EST) Josafat Rivera MD BLOOD TRANSFUSION ORDERABLES F inal Result * Transfuse RBC (01/03/2025 9:47 AM EST) Josafat Rivera MD BLOOD TRANSFUSION ORDERABLES F inal Result * (ABNORMAL) POCT arterial blood gas gem (01/03/2025 9:36 AM EST) pH, Arterial 7.34(L) 7.35 - 7.45 01/03/2025 9:37 AM EST [facility] pCO2, Arterial 38 32 - 45 mm Hg 01/03/2025 9:37 AM EST [facility] pO2, Arterial 182(H) 83 - 108 mm Hg 01/03/2025 9:37 AM EST [facility] SO2, Arterial 100(H) 94 - 98 % 01/03/2025 9:37 AM EST [facility] Base Excess, Arterial -4.8(L) -2 - 3 mmol/L 01/03/2025 9:37 AM EST [facility] HCO3, Arterial 20.5(L) 22 - 26 mmol/L 01/03/2025 9:37 AM EST [facility] Total Hemoglobin, Arterial, Whole Blood 8.2(L) 13.7 - 17.5 g/dL 01/03/2025 9:37 AM [facility] Hematocrit, Arterial 25.0(L) 40 - 51.0 % 01/03/2025 9:37 AM [facility] Sodium, Arterial 138 136 - 145 mmol/L 01/03/2025 9:37 AM [facility] Potassium, Arterial 4.1 3.6 - 4.9 mmol/L 01/03/2025 9:37 AM [facility] Chloride, Whole Blood 109(H) 97 - 107 mmol/L 01/03/2025 9:37 AM [facility] Glucose, Arterial 107(H) 74 - 99 mg/dL 01/03/2025 9:37 AM [facility] Ionized Calcium, Arterial 4.6 4.6 - 5.1 mg/dL 01/03/2025 9:37 AM [facility] Lactate, Arterial 1.2 0.5 - 1.6 mmol/L 01/03/2025 9:37 AM [facility] Body Temperature 37.0 Celsius 01/03/2025 9:37 AM [facility] pH, Temp Corrected, Arterial 7.34(L) 7.35 - 7.45 01/03/2025 9:37 AM [facility] pCO2, Temp Corrected, Arterial 38 32 - 45 mm Hg 01/03/2025 9:37 AM [facility] pO2, Temp Corrected, Arterial 182(H) 83 - 108 mm Hg 01/03/2025 9:37 AM [facility] Shearing Machine Operator ID Ronnie [place] 01/03/2025 9:37 AM [facility] Blood Whole blood specimen / Unknown 01/03/2025 9:36 AM EST 01/03/2025 9:37 AM EST Satnam Beckford MD LAB POINT OF CARE T EST DOCKED DEVICE UNSOLICITED RESULTS Final Result Performing Organization Address City/State/[facility] de Phone Number [facility] [address] [place] [address] * (ABNORMAL) POCT arterial blood gas gem (01/03/2025 9:03 AM [facility]) pH, Arterial 7.33(L) 7.35 - 7.45 01/03/2025 9:05 AM [facility] pCO2, Arterial 39 32 - 45 mm Hg 01/03/2025 9:05 AM [facility] pO2, Arterial 180(H) 83 - 108 mm Hg 01/03/2025 9:05 AM [facility] SO2, Arterial 99(H) 94 - 98 % 01/03/2025 9:05 AM [facility] Base Excess, Arterial -4.9(L) -2 - 3 mmol/L 01/03/2025 9:05 AM [facility] HCO3, Arterial 20.6(L) 22 - 26 mmol/L 01/03/2025 9:05 AM [facility] Total Hemoglobin, Arterial, Whole Blood 8.2(L) 13.7 - 17.5 g/dL 01/03/2025 9:05 AM [facility] Hematocrit, Arterial 25.0(L) 40 - 51.0 % 01/03/2025 9:05 AM [facility] Sodium, Arterial 138 136 - 145 mmol/L 01/03/2025 9:05 AM [facility] Potassium, Arterial 4.1 3.6 - 4.9 mmol/L 01/03/2025 9:05 AM [facility] Chloride, Whole Blood 108(H) 97 - 107 mmol/L 01/03/2025 9:05 AM [facility] Glucose, Arterial 109(H) 74 - 99 mg/dL 01/03/2025 9:05 AM [facility] Ionized Calcium, Arterial 4.7 4.6 - 5.1 mg/dL 01/03/2025 9:05 AM [facility] Lactate, Arterial 1.1 0.5 - 1.6 mmol/L 01/03/2025 9:05 AM [facility] Body Temperature 37.0 Celsius 01/03/2025 9:05 AM [facility] pH, Temp Corrected, Arterial 7.33(L) 7.35 - 7.45 01/03/2025 9:05 AM [facility] pCO2, Temp Corrected, Arterial 39 32 - 45 mm Hg 01/03/2025 9:05 AM EST [facility] pO2, Temp Corrected, Arterial 180(H) 83 - 108 mm Hg 01/03/2025 9:05 AM EST [facility] Shearing Machine Operator ID Ronnie [place] 01/03/2025 9:05 AM EST [facility] Blood Whole blood specimen / Unknown 01/03/2025 9:03 AM EST 01/03/2025 9:05 AM EST Satnam Beckford MD LAB POINT OF CARE T EST DOCKED DEVICE UNSOLICITED RESULTS Final Result Performing Organization Address City/State/[facility] Co de Phone Number [facility] [address] [place] [id number] * Transfuse RBC (01/03/2025 8:39 AM EST) Josafat Rivera MD BLOOD TRANSFUSION ORDERABLES F inal Result * Transfuse fresh frozen plasma (01/03/2025 8:39 AM EST) Result [facility] Josafat Rivera MD BLOOD TRANSFUSION ORDERABLES F inal Result * (ABNORMAL) POCT arterial blood gas gem (01/03/2025 8:37 AM EST) pH, Arterial 7.35 7.35 - 7.45 01/03/2025 8:38 AM EST [facility] pCO2, Arterial 38 32 - 45 mm Hg 01/03/2025 8:38 AM EST [facility] pO2, Arterial 81(L) 83 - 108 mm Hg 01/03/2025 8:38 AM EST [facility] SO2, Arterial 97 94 - 98 % 01/03/2025 8:38 AM EST [facility] Base Excess, Arterial -4.2(L) -2 - 3 mmol/L 01/03/2025 8:38 AM EST [facility] HCO3, Arterial 21.0(L) 22 - 26 mmol/L 01/03/2025 8:38 AM EST [facility] Total Hemoglobin, Arterial, Whole Blood 7.5(L) 13.7 - 17.5 g/dL 01/03/2025 8:38 AM EST [facility] Hematocrit, Arterial 23.0(L) 40 - 51.0 % 01/03/2025 8:38 AM EST [facility] Sodium, Arterial 138 136 - 145 mmol/L 01/03/2025 8:38 AM EST [facility] Potassium, Arterial 3.9 3.6 - 4.9 mmol/L 01/03/2025 8:38 AM EST [facility] Chloride, Whole Blood 109(H) 97 - 107 mmol/L 01/03/2025 8:38 AM EST [facility] Glucose, Arterial 98 74 - 99 mg/dL 01/03/2025 8:38 AM EST [facility] Ionized Calcium, Arterial 4.2(L) 4.6 - 5.1 mg/dL 01/03/2025 8:38 AM EST [facility] Lactate, Arterial 0.9 0.5 - 1.6 mmol/L 01/03/2025 8:38 AM EST [facility] Body Temperature 37.0 Celsius 01/03/2025 8:38 AM EST [facility] pH, Temp Corrected, Arterial 7.35 7.35 - 7.45 01/03/2025 8:38 AM EST [facility] pCO2, Temp Corrected, Arterial 38 32 - 45 mm Hg 01/03/2025 8:38 AM EST [facility] pO2, Temp Corrected, Arterial 81(L) 83 - 108 mm Hg 01/03/2025 8:38 AM EST [facility] Shearing Machine Operator ID Ronnie [place] 01/03/2025 8:38 AM EST [facility] Blood Whole blood specimen / Unknown 01/03/2025 8:37 AM EST 01/03/2025 8:38 AM EST us Satnam Beckford MD LAB POINT OF CARE T EST DOCKED DEVICE UNSOLICITED RESULTS Final Result Performing Organization Address City/State/[facility] Co de Phone Number [facility] [address] [place] [address] * Transfuse RBC (01/03/2025 8:07 AM EST) us Josafat Rivera MD BLOOD TRANSFUSION ORDERABLES F inal Result * Transfuse fresh frozen plasma (01/03/2025 8:04 AM EST) us Josafat Rivera MD BLOOD TRANSFUSION ORDERABLES F inal Result * Transfuse fresh frozen plasma (01/03/2025 8:04 AM EST) us Josafat Rivera MD BLOOD TRANSFUSION ORDERABLES F inal Result * (ABNORMAL) QSTAT (01/03/2025 8:01 AM EST) Clot Time 182(H) 121 - 175 Seconds 01/03/2025 8:42 AM EST [facility] Clot Stability To Lysis 98 92 - 100 % 01/03/2025 8:42 AM EST [facility] Comment:The Clot Stability t o Lysis (CSL) is a calculated parameter. CSL values of 92%-100% are demonstrated to be typical of n ormal patient samples. Samples with CSL values below 90% are indicative of reduction of clot stiffness that is likely due to the influence of fibrinolysis. The 90% threshold was calculated as the lower bound of the 95% confidence interval around the lower limit of the reference interval for CSL determined in healthy volunteers. Clot Stiffness 9.1(L) 14.0 - 35.4 hectoPascals 01/03/2025 8:42 AM EST [facility] Platelet Contribution to Clot Stiffness 8.0(L) 12.8 - 32.3 hectoPascals 01/03/2025 8:42 AM EST [facility] Fribrinogen Contribution to Clot Stiffness 1.1 0.9 - 4.2 hectoPascals 01/03/2025 8:42 AM EST [facility] Shearing Machine Operator ID [id number] 01/03/2025 8:42 AM EST [facility] Device ID [id number] 01/03/2025 8:42 AM EST [facility] Blood Venous blood specimen / Unknown 01/03/2025 8:01 AM EST 01/03/2025 8:42 AM EST Narrative [facility] - 01/03/2025 8:42 AM EST ProfileName= us Satnam Beckford MD LAB POINT OF CARE T EST DOCKED DEVICE UNSOLICITED RESULTS Final Result [facility] [address] [place] [address] * (ABNORMAL) POCT arterial blood gas gem (01/03/2025 7:59 AM EST) pH, Arterial 7.33(L) 7.35 - 7.45 01/03/2025 8:01 AM [facility] pCO2, Arterial 43 32 - 45 mm Hg 01/03/2025 8:01 AM [facility] pO2, Arterial 95 83 - 108 mm Hg 01/03/2025 8:01 AM [facility] SO2, Arterial 98 94 - 98 % 01/03/2025 8:01 AM [facility] Base Excess, Arterial -3.0(L) -2 - 3 mmol/L 01/03/2025 8:01 AM [facility] HCO3, Arterial 22.7 22 - 26 mmol/L 01/03/2025 8:01 AM [facility] Total Hemoglobin, Arterial, Whole Blood 7.8(L) 13.7 - 17.5 g/dL 01/03/2025 8:01 AM [facility] Hematocrit, Arterial 23.0(L) 40 - 51.0 % 01/03/2025 8:01 AM [facility] Sodium, Arterial 138 136 - 145 mmol/L 01/03/2025 8:01 AM [facility] Potassium, Arterial 3.8 3.6 - 4.9 mmol/L 01/03/2025 8:01 AM [facility] Chloride, Whole Blood 108(H) 97 - 107 mmol/L 01/03/2025 8:01 AM [facility] Glucose, Arterial 110(H) 74 - 99 mg/dL 01/03/2025 8:01 AM [facility] Ionized Calcium, Arterial 4.8 4.6 - 5.1 mg/dL 01/03/2025 8:01 AM [facility] Lactate, Arterial 0.8 0.5 - 1.6 mmol/L 01/03/2025 8:01 AM [facility] Body Temperature 37.0 Celsius 01/03/2025 8:01 AM [facility] pH, Temp Corrected, Arterial 7.33(L) 7.35 - 7.45 01/03/2025 8:01 AM [facility] pCO2, Temp Corrected, Arterial 43 32 - 45 mm Hg 01/03/2025 8:01 AM [facility] pO2, Temp Corrected, Arterial 95 83 - 108 mm Hg 01/03/2025 8:01 AM [facility] Shearing Machine Operator Josafat Adkins 01/03/2025 8:01 AM EST [facility] Blood Whole blood specimen / Unknown 01/03/2025 7:59 AM EST 01/03/2025 8:01 AM EST us Satnam Beckford MD LAB POINT OF CARE T EST DOCKED DEVICE UNSOLICITED RESULTS Final Result Performing Organization Address City/[facility] Co de Phone Number [facility] [address] [place] [address] * (ABNORMAL) TEG Global Hemostasis with Lysis (01/03/2025 7:53 AM EST) R, Lysis 8.2 4.6 - 9.1 min 01/03/2025 9:02 AM EST [facility] MA, Rapid, Lysis 42.7(L) 52.0 - 70.0 mm 01/03/2025 9:02 AM EST [facility] MA, Fibrinogen, Lysis 12.0(L) 15.0 - 32.0 mm 01/03/2025 9:02 AM EST [facility] LY30 0.4 0.0 - 2.6 % 01/03/2025 9:02 AM EST [facility] Blood Arterial blood specimen / Unknown 01/03/2025 7:53 AM EST 01/03/2025 8:05 AM EST Comment:Pre-op diagnosis: Decompensation of cirrhosis of liver (CMS/HCC) [K72.90, K74.60] us Josafat Rivera MD LAB BLOOD ORDERABLES Final Res ult [facility] [address] [place] [address] * (ABNORMAL) APTT (01/03/2025 7:53 AM EST) aPTT 62(H) 25 - 35 sec LAB COAGULATION METHOD 01/03/2025 8:37 AM EST [facility] Blood Arterial blood specimen / Unknown 01/03/2025 7:53 AM EST 01/03/2025 8:03 AM EST Comment:Pre-op diagnosis: Decompensation of cirrhosis of liver (CMS/HCC) [K72.90, K74.60] Josafat Rivera MD LAB BLOOD ORDERABLES Final Res ult Performing Organization Address [facility]/ZIP Co de Phone Number [facility] [address] [place] [address] * (ABNORMAL) Prothrombin Time/INR (01/03/2025 7:53 AM EST) Prothrombin Time 29.3(H) 12.0 - 14.3 sec LAB COAGULATION METHOD 01/03/2025 8:37 AM EST [facility] INR 2.8(H) 0.9 - 1.1 LAB COAGULATION METHOD 01/03/2025 8:37 AM EST [facility] Blood Arterial blood specimen / Unknown 01/03/2025 7:53 AM EST 01/03/2025 8:03 AM EST Comment:Pre-op diagnosis: Decompensation of cirrhosis of liver (CMS/HCC) [K72.90, K74.60] Narrative [facility] - 01/03/2025 8:37 AM EST OPTIMAL INR RANGES FOR PATIENT ON ORAL ANTICOAGULANT THERAPY Prevention of venous thromboembolism INR 2.0 to 3.0 In patients with heart disease: Atrial fibrillation INR 2.0 to 3.0 Valvular heart disease INR 2.0 to 3.0 Tissue heart valves INR 2.0 to 3.0 Mechanical prosthetic valves INR 2.5 to 3.5 Prevention of recurrent OR INR 2.5 to 3.5 Josafat Rivera MD LAB BLOOD ORDERABLES Final Res ult Performing Organization Address City/[facility]/ZIP Co de Phone Number [facility] [address] [place] [address] * (ABNORMAL) Fibrinogen, Quantitative (Clottable) (01/03/2025 7:53 AM EST) Fibrinogen, Quantitative (Clottable) 148(L) 208 - 459 mg/dL LAB COAGULATION METHOD 01/03/2025 8:37 AM EST [facility] Blood Arterial blood specimen / Unknown 01/03/2025 7:53 AM EST 01/03/2025 8:03 AM EST Comment:Pre-op diagnosis: Decompensation of cirrhosis of liver (CMS/HCC) [K72.90, K74.60] us Josafat Rivera MD LAB BLOOD ORDERABLES Final Res ult [facility] [address] [place] [address] * (ABNORMAL) CBC W/O Differential (01/03/2025 7:53 AM EST) WBC Count 3.60(L) 3.70 - 10.30 10*3/uL LAB HEMATOLOGY METHOD 01/03/2025 8:20 AM EST [facility] RBC Count 2.45(L) 4.60 - 6.10 10*6/uL LAB HEMATOLOGY METHOD 01/03/2025 8:20 AM EST [facility] HGB 7.8(L) 13.7 - 17.5 g/dL LAB HEMATOLOGY METHOD 01/03/2025 8:20 AM EST [facility] HCT 25.7(L) 40.0 - 51.0 % LAB HEMATOLOGY METHOD 01/03/2025 8:20 AM EST [facility] Platelet Count 69(L) 155 - 369 10*3/uL LAB HEMATOLOGY METHOD 01/03/2025 8:20 AM EST [facility] MCV 105(H) 79 - 98 fL LAB HEMATOLOGY METHOD 01/03/2025 8:20 AM EST [facility] MCH 31.8 26.0 - 32.0 pg LAB HEMATOLOGY METHOD 01/03/2025 8:20 AM EST [facility] MCHC 30.4(L) 30.7 - 35.5 g/dL LAB HEMATOLOGY METHOD 01/03/2025 8:20 AM EST [facility] RDW 20.3(H) 11.5 - 14.5 % LAB HEMATOLOGY METHOD 01/03/2025 8:20 AM EST [facility] MPV 10.3 8.8 - 12.5 fL LAB HEMATOLOGY METHOD 01/03/2025 8:20 AM EST [facility] nRBC 0.0 <=0.0 per 100 WBCs LAB HEMATOLOGY METHOD 01/03/2025 8:20 AM EST [facility] Blood Arterial blood specimen / Unknown 01/03/2025 7:53 AM EST 01/03/2025 8:03 AM EST Comment:Pre-op diagnosis: Decompensation of cirrhosis of liver (CMS/HCC) [K72.90, K74.60] us Josafat Rivera MD LAB BLOOD ORDERABLES Final Res ult [facility] [address] [place] [address] * (ABNORMAL) Comprehensive Metabolic Panel, Plasma (01/03/2025 7:53 AM EST) Glucose, Plasma 111(H) 74 - 99 mg/dL 01/03/2025 8:41 AM EST [facility] BUN, Plasma 14 7 - 21 mg/dL 01/03/2025 8:41 AM EST [facility] Creatinine, Plasma 0.73 0.70 - 1.20 mg/dL 01/03/2025 8:41 AM EST [facility] BUN/Creatinine Ratio 19 01/03/2025 8:41 AM EST [facility] Sodium, Plasma 137 136 - 145 mmol/L 01/03/2025 8:41 AM EST [facility] Potassium, Plasma 3.8 3.6 - 4.9 mmol/L 01/03/2025 8:41 AM EST [facility] Chloride, Plasma 109(H) 97 - 107 mmol/L 01/03/2025 8:41 AM EST [facility] CO2, Plasma 21(L) 22 - 29 mmol/L 01/03/2025 8:41 AM EST [facility] Anion Gap 7 6 - 16 mmol/L 01/03/2025 8:41 AM EST [facility] Total Calcium, Plasma 7.6(L) 8.9 - 10.2 mg/dL 01/03/2025 8:41 AM EST [facility] Total Protein 5.0(L) 6.3 - 7.9 g/dL 01/03/2025 8:41 AM EST [facility] Albumin, Plasma 2.5(L) 3.5 - 5.2 g/dL 01/03/2025 8:41 AM EST [facility] AST, Plasma 50 10 - 50 U/L 01/03/2025 8:41 AM EST [facility] ALT, Plasma 26 10 - 50 U/L 01/03/2025 8:41 AM EST [facility] Alkaline Phosphatase, Plasma 93 40 - 115 U/L 01/03/2025 8:41 AM EST [facility] Total Bilirubin, Plasma 11.7(H) 0.2 - 1.1 mg/dL 01/03/2025 8:41 AM EST [facility] eGFRcr 114.3 mL/min/1.7 3m*2 01/03/2025 8:41 AM EST [facility] Comment:Reported eGFRcr in m L/min/1.73m2 is based the CKD-EPI 2020 equation that does not use a race coefficient. Blood Arterial blood specimen / Unknown 01/03/2025 7:53 AM EST 01/03/2025 8:02 AM EST Comment:Pre-op diagnosis: Decompensation of cirrhosis of liver (CMS/HCC) [K72.90, K74.60] us Josafat Rivera MD LAB BLOOD ORDERABLES Final Res ult [facility] [address] [place] [address] * Prepare Fresh Frozen Plasma: 5 Units (01/03/2025 6:43 AM EST) Product Code W8464S79 [facility] BLOO D BANK Dispense Status Transfused [facility] BLOOD BANK Blood Expiration Date BLOOD BANK Unit Number [id number] [facility] B LOOD BANK Product Blood Type 6200 BLOOD BANK Blood Type A+ CH BLOOD BANK Product Code [id number] [facility] D B[facility] Dispense Status Transfused CH BLOOD BANK Blood Expiration Date BLOOD BANK Unit Number [id number] [facility] B LOOD BANK Product Blood Type 6200 CH BLOOD BANK Blood Type A+ CH BLOOD BANK Product Code [id number] [facility] BLOO D BANK Dispense Status Transfused CH BLOOD BANK Blood Expiration Date BLOOD BANK Unit Number [id number] [facility] B LOOD BANK Product Blood Type 6200 CH BLOOD BANK Blood Type A+ CH BLOOD BANK Product Code [id number] [facility] BLOO D BANK Dispense Status Transfused CH BLOOD BANK Blood Expiration Date [facility] BLOOD BANK Unit Number [id number] CH B LOOD BANK Product Blood Type 0600 CH BLOOD BANK Blood Type A- CH BLOOD BANK Product Code [id number] [facility] BLOO D BANK Dispense Status Transfused CH BLOOD BANK Blood Expiration Date [facility] BLOOD BANK Unit Number [id number] [facility] B LOOD BANK Product Blood Type 6200 CH BLOOD BANK Blood Type A+ [facility] Blood Venous blood specimen / Unknown Ronnie Jackson MD BLOOD BANK PRODUCT ORDERAB LES Final Result BLOOD BANK [address] [place] [address], * POCT glucose meter (01/03/2025 3:34 AM EST) [facility] POCT Glucose 90 74 - 99 mg/dL 01/03/2025 3:35 AM EST [facility] Comment:Accuracy of a glucos e result obtained from a capillary whole blood specimen relies upon adequate, non-compromised capillary blood flow. If the capillary glucose result is not consistent with the patient's clinical signs and symptoms, glucose testing should be repeated with either an arterial or venous sample on the glucometer or sent to the main labortory for testing. Comment 01/03/2025 3:35 AM EST [facility] Shearing Machine Operator ID Robi, Allison 01/04/20 3:35 AM EST [facility] Device ID [id number] 01/03/2025 3:35 AM EST [facility] Specimen Type POC Capillary 01/03/2025 3:35 AM EST [facility] Blood Capillary blood specimen / Unknown 01/03/2025 3:34 AM EST 01/03/2025 3:35 AM EST Satnam Beckford MD LAB POINT OF CARE T EST DOCKED DEVICE UNSOLICITED RESULTS Final Result [facility] [address] [place] [address] * (ABNORMAL) Protime-INR (01/03/2025 3:34 AM EST) Prothrombin Time 27.8(H) 12.0 - 14.3 sec LAB COAGULATION METHOD 01/03/2025 4:13 AM EST [facility] INR 2.6(H) 0.9 - 1.1 LAB COAGULATION METHOD 01/03/2025 4:13 AM EST [facility] Blood Venous blood specimen / Unknown Venipuncture / Unknown 01/03/2025 3:34 AM EST 01/03/2025 3:41 AM EST Narrative [facility] - 01/03/2025 4:13 AM EST OPTIMAL INR RANGES FOR PATIENT ON ORAL ANTICOAGULANT THERAPY Prevention of venous thromboembolism INR 2.0 to 3.0 In patients with heart disease: Atrial fibrillation INR 2.0 to 3.0 Valvular heart disease INR 2.0 to 3.0 Tissue heart valves INR 2.0 to 3.0 Mechanical prosthetic valves INR 2.5 to 3.5 Prevention of recurrent OR INR 2.5 to 3.5 Satnam Beckford MD LAB BLOOD ORDERABLES Final Result [facility] [address] [place] [id number] * SARS CoV-2/COVID-19 by PCR - Rapid (01/02/2025 9:46 AM EST) Pathologist [facility] SARS CoV-2/COVID-1 9 RNA PCR Result Not Detected Not Detected 01/02/2025 11:10 AM EST [facility] Swab Nasopharyngeal structure / Unknown Non-blood Collection / Unknown 01/02/2025 9:46 AM EST 01/02/2025 10:06 AM EST Narrative [facility] - 01/02/2025 11:10 AM EST This test is FDA approved for use with nasopharyngeal specimens in Viral Transport Media (VTM). This test is used for clinical purposes. It should not be regarded as investigational or for research. This laboratory is certified under the Clinical Laboratory improvement Amendments of 1988 (CLIA-88 as qualified to perform high complexity clinical laboratory testing. This test was performed on the Xpert Xpress SARS CoV-2 Plus assay test, a PCR- based method. Negative results should be considered presumptive and do not preclude current or future infection obtained through community transmission or other exposures. Negative results must be considered in the context of an individual's recent exposures, history, presence of clinical signs and symptoms consistent with COVID-19. Satnam Beckford MD LAB MICROBIOLOGY - GENERAL ORDERABLES Final Result Performing Organization Address [facility]/ZIP Co de Phone Number [facility] [address] [place] [address] * HIV 1 & 2 Antibody/Antigen Screen (01/02/2025 9:40 AM EST) HIV 1 & 2 Antibody/Antigen Screen Non Reactive Non Reactive 01/02/2025 10:42 AM EST [facility] Comment:Screening for HIV 1 & 2 antibodies, and P24 antigen is NONREACTIVE. No confirmatory testing is required. Blood Venous blood specimen / Unknown Venipuncture / Unknown 01/02/2025 9:40 AM EST 01/02/2025 10:01 AM EST Satnam Beckford MD LAB BLOOD ORDERABLES Final Result Performing Organization Address [facility] Co de Phone Number [facility] [address] [place] [address] * Type and screen (01/02/2025 9:40 AM EST) ABO/Rh A Negative 01/02/2025 10:02 AM EST [facility] Antibody Screen Negative 01/02/2025 10:02 AM EST [facility] Specimen Expiration 01/05/2025 23:59 01/02/2025 10:02 AM EST [facility] Blood Venous blood specimen / Unknown Venipuncture / Unknown 01/02/2025 9:40 AM EST 01/02/2025 10:02 AM EST Satnam Beckford MD LAB BLOOD BANK TEST ORDERAB LES Final Result Performing Organization Address City/[facility]/ZIP Co de Phone Number BLOOD BANK [address] * Hepatitis C Virus (HCV) Quantitative PCR (01/02/2025 9:40 AM EST) Pathologist [facility] Hepatitis C Virus (HCV) Quantitative Interpretation Not Detected Not Detected. 01/05/2025 4:19 PM EST [facility] Blood Venous blood specimen / Unknown Venipuncture / Unknown 01/02/2025 9:40 AM EST 01/02/2025 10:01 AM EST Narrative [facility] - 01/05/2025 4:19 PM EST The [employer] M2000 HCV test is a Real Time in vitro nucleic acid amplification test for the quantitation of Hepatitis C Viral (HCV) RNA in human serum in HCV-infected individuals. It is intended for use as an aid in the management of HCV-infected individuals undergoing anti-viral therapy. The dynamic range for this test is log10 = 1.08 to 8.00 and/or 12 to 100,000,000 IU/mL. The limit of detection (LOD) for this assay is 12 IU/mL and the limit of quantitation (LOQ) is 12 IU/mL. This assay is FDA approved for clinical use. Satnam Beckford MD LAB BLOOD ORDERABLES Final Result Performing Organization Address [facility] Co de Phone Number [facility] [address] [place] [address] * Hepatitis C Antibody (01/02/2025 9:40 AM EST) [facility] Hepatitis C Antibody Negative Negative 01/02/2025 10:42 AM EST [facility] Blood Venous blood specimen / Unknown Venipuncture / Unknown 01/02/2025 9:40 AM EST 01/02/2025 10:01 AM EST Satnam Beckford MD LAB BLOOD ORDERABLES Final Result Performing Organization Address City/[facility]/ZIP Co de Phone Number [facility] [address] [place] [address] * Hepatitis B Surface Antigen (01/02/2025 9:40 AM EST) Hepatitis B Surf Antigen Negative Negative 01/02/2025 5:37 PM EST [facility] Blood Venous blood specimen / Unknown Venipuncture / Unknown 01/02/2025 9:40 AM EST 01/02/2025 10:02 AM EST Satnam Beckford MD LAB BLOOD ORDERABLES Final Result [facility] [address] [place] [address] * Hepatitis B Surface Antibody, Quantitative (01/02/2025 9:40 AM EST) Pathologist [facility] Hepatitis B Surface Antibody, Quantitative <8.00 NonReactiv e: <8, Grayzone: 8 - <12, Reactive: >= 12 mIU/mL 01/02/2025 11:14 AM EST [facility] Comment: Nonreactive. Individual is considered not immune to HBV infection. Blood Venous blood specimen / Unknown Venipuncture / Unknown 01/02/2025 9:40 AM EST 01/02/2025 10:02 AM EST Satnam Beckford MD LAB BLOOD ORDERABLES Final Result Performing Organization Address [facility]/ZIP Co de Phone Number [facility] [address] [place] [address] * Hepatitis B Core Total Antibody IgG,IgM (01/02/2025 9:40 AM EST) Pathologist [facility] Hepatitis B Core Total Antibody IgG,IgM Negative Negative 01/02/2025 11:14 AM EST [facility] Blood Venous blood specimen / Unknown Venipuncture / Unknown 01/02/2025 9:40 AM EST 01/02/2025 10:02 AM EST Satnam Beckford MD LAB BLOOD ORDERABLES Final Result Performing Organization Address City/[facility]/ZIP Co de Phone Number [facility] [address] [place] [address] * (ABNORMAL) Vitamin D 25 Hydroxy (01/02/2025 9:40 AM EST) Vitamin D 25 Hydroxy 16.2(L) 20.0 - 80.0 ng/mL 01/02/2025 11:15 AM EST [facility] Blood Venous blood specimen / Unknown Venipuncture / Unknown 01/02/2025 9:40 AM EST 01/02/2025 10:02 AM EST Narrative [facility] - 01/02/2025 11:15 AM EST Testing performed on [employer], standardized against NIST SRM [id number]. When testing samples from patients whose predominant form of vitamin D is vitamin D2, such as patients receiving vitamin D2 supplementation, results that are subtherapeutic should be confirmed with another method, such as LC-MS/MS, before being used for patient management. Vitamin D, 25-Hydroxy reference range, age 18 years and up: Deficiency: <12 ng/mL Insufficiency: 12 to 19 ng/mL Sufficiency: 20 to 80 ng/mL Possible toxicity: >100 ng/mL us Satnam Beckford MD LAB BLOOD ORDERABLES Final Result [facility] [address] [place] [address] * (ABNORMAL) APTT (01/02/2025 9:40 AM EST) aPTT 53(H) 25 - 35 sec LAB COAGULATION METHOD 01/02/2025 10:20 AM EST [facility] Blood Venous blood specimen / Unknown Venipuncture / Unknown 01/02/2025 9:40 AM EST 01/02/2025 10:01 AM EST Satnam Beckford MD LAB BLOOD ORDERABLES Final Result [facility] [address] [place] [address] * (ABNORMAL) Protime-INR (01/02/2025 9:40 AM EST) Prothrombin Time 26.5(H) 12.0 - 14.3 sec LAB COAGULATION METHOD 01/02/2025 10:20 AM EST [facility] INR 2.4(H) 0.9 - 1.1 LAB COAGULATION METHOD 01/02/2025 10:20 AM EST [facility] Blood Venous blood specimen / Unknown Venipuncture / Unknown 01/02/2025 9:40 AM EST 01/02/2025 10:01 AM EST Narrative [facility] - 01/02/2025 10:20 AM EST OPTIMAL INR RANGES FOR PATIENT ON ORAL ANTICOAGULANT THERAPY Prevention of venous thromboembolism INR 2.0 to 3.0 In patients with heart disease: Atrial fibrillation INR 2.0 to 3.0 Valvular heart disease INR 2.0 to 3.0 Tissue heart valves INR 2.0 to 3.0 Mechanical prosthetic valves INR 2.5 to 3.5 Prevention of recurrent OR INR 2.5 to 3.5 Satnam Beckford MD LAB BLOOD ORDERABLES Final Result [facility] [address] [place] [address] * (ABNORMAL) Comprehensive metabolic panel (01/02/2025 9:40 AM EST) Glucose, Plasma 83 74 - 99 mg/dL 01/02/2025 10:32 AM EST [facility] BUN, Plasma 14 7 - 21 mg/dL 01/02/2025 10:32 AM EST [facility] Creatinine, Plasma 0.85 0.70 - 1.20 mg/dL 01/02/2025 10:32 AM EST [facility] BUN/Creatinine Ratio 16 01/02/2025 10:32 AM EST [facility] Sodium, Plasma 139 136 - 145 mmol/L 01/02/2025 10:32 AM EST [facility] Potassium, Plasma 4.2 3.6 - 4.9 mmol/L 01/02/2025 10:32 AM EST [facility] Chloride, Plasma 107 97 - 107 mmol/L 01/02/2025 10:32 AM EST [facility] CO2, Plasma 22 22 - 29 mmol/L 01/02/2025 10:32 AM EST [facility] Anion Gap 10 6 - 16 mmol/L 01/02/2025 10:32 AM EST [facility] Total Calcium, Plasma 8.6(L) 8.9 - 10.2 mg/dL 01/02/2025 10:32 AM EST [facility] Total Protein 6.1(L) 6.3 - 7.9 g/dL 01/02/2025 10:32 AM EST [facility] Albumin, Plasma 2.9(L) 3.5 - 5.2 g/dL 01/02/2025 10:32 AM EST [facility] AST, Plasma 58(H) 10 - 50 U/L 01/02/2025 10:32 AM EST [facility] ALT, Plasma 28 10 - 50 U/L 01/02/2025 10:32 AM EST [facility] Alkaline Phosphatase, Plasma 134(H) 40 - 115 U/L 01/02/2025 10:32 AM EST [facility] Total Bilirubin, Plasma 13.2(H) 0.2 - 1.1 mg/dL 01/02/2025 10:32 AM EST [facility] eGFRcr 109.2 mL/min/1.7 3m*2 01/02/2025 10:32 AM EST [facility] Comment:Reported eGFRcr in m L/min/1.73m2 is based the CKD-EPI 2020 equation that does not use a race coefficient. Blood Venous blood specimen / Unknown Venipuncture / Unknown 01/02/2025 9:40 AM EST 01/02/2025 10:02 AM EST us Satnam Beckford MD LAB BLOOD ORDERABLES Final Result [facility] [address] [place] [address] * (ABNORMAL) CBC and Differential (01/02/2025 9:40 AM EST) WBC Count 2.84(L) 3.70 - 10.30 10*3/uL LAB HEMATOLOGY METHOD 01/02/2025 10:10 AM EST [facility] RBC Count 2.76(L) 4.60 - 6.10 10*6/uL LAB HEMATOLOGY METHOD 01/02/2025 10:10 AM [facility] HGB 8.7(L) 13.7 - 17.5 g/dL LAB HEMATOLOGY METHOD 01/02/2025 10:10 AM EST [facility] HCT 28.6(L) 40.0 - 51.0 % LAB HEMATOLOGY METHOD 01/02/2025 10:10 AM [facility] Platelet Count 72(L) 155 - 369 10*3/uL LAB HEMATOLOGY METHOD 01/02/2025 10:10 AM EST [facility] MCV 104(H) 79 - 98 fL LAB HEMATOLOGY METHOD 01/02/2025 10:10 AM [facility] MCH 31.5 26.0 - 32.0 pg LAB HEMATOLOGY METHOD 01/02/2025 10:10 AM [facility] MCHC 30.4(L) 30.7 - 35.5 g/dL LAB HEMATOLOGY METHOD 01/02/2025 10:10 AM [facility] RDW 20.5(H) 11.5 - 14.5 % LAB HEMATOLOGY METHOD 01/02/2025 10:10 AM [facility] MPV 10.6 8.8 - 12.5 fL LAB HEMATOLOGY METHOD 01/02/2025 10:10 AM [facility] nRBC 0.0 <=0.0 per 100 WBCs LAB HEMATOLOGY METHOD 01/02/2025 10:10 AM [facility] Differential Type Automated LAB HEMATOLOGY METHOD 01/02/2025 10:10 AM [facility] Neutrophils % 49 % LAB HEMATOLOGY METHOD 01/02/2025 10:10 AM EST [facility] Lymphocytes % 30 % LAB HEMATOLOGY METHOD 01/02/2025 10:10 AM [facility] Monocytes % 16 % LAB HEMATOLOGY METHOD 01/02/2025 10:10 AM [facility] Eosinophils % 4 % LAB HEMATOLOGY METHOD 01/02/2025 10:10 AM [facility] Basophils % 1 % LAB HEMATOLOGY METHOD 01/02/2025 10:10 AM [facility] Immature Granulocytes % 0 % LAB HEMATOLOGY METHOD 01/02/2025 10:10 AM [facility] Neutrophils Absolute 1.39(L) 1.60 - 6.10 10*3/uL LAB HEMATOLOGY METHOD 01/02/2025 10:10 AM EST [facility] Lymphocytes Absolute 0.85(L) 1.20 - 3.90 10*3/uL LAB HEMATOLOGY METHOD 01/02/2025 10:10 AM EST [facility] Monocytes Absolute 0.45 0.30 - 0.90 10*3/uL LAB HEMATOLOGY METHOD 01/02/2025 10:10 AM EST [facility] Eosinophils Absolute 0.11 0.00 - 0.50 10*3/uL LAB HEMATOLOGY METHOD 01/02/2025 10:10 AM EST [facility] Basophils Absolute 0.03 0.00 - 0.10 10*3/uL LAB HEMATOLOGY METHOD 01/02/2025 10:10 AM EST [facility] Immature Granulocytes Absolute 0.01 0.00 - 0.06 10*3/uL LAB HEMATOLOGY METHOD 01/02/2025 10:10 AM EST [facility] Blood Venous blood specimen / Unknown Venipuncture / Unknown 01/02/2025 9:40 AM EST 01/02/2025 10:02 AM EST Narrative [facility] - 01/02/2025 10:10 AM EST Therapeutic decision making should be based on absolute values, rather than percentages. 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 Tobacco use disorder, continuous Tobacco use disorder Essential (primary) hypertension Unspecified essential hypertension GERD (gastroesophageal reflux disease) Esophageal reflux Anxiety Anxiety state, unspecified Insomnia Insomnia, unspecified SBP (spontaneous bacterial peritonitis) Spontaneous bacterial peritonitis Anemia Unspecified anemia Thrombocytopenia (CMS/HCC) Unspecified thrombocytopenia On mechanically assisted ventilation (CMS/HCC) Hypotension Unspecified hypotension Elevated INR Abnormal coagulation profile Coagulopathy Other and unspecified coagulation defects NINA (acute kidney injury) Abdominal distension Flatulence, eructation, and gas pain documented in this encounter Admitting Diagnoses Diagnosis Decompensation of cirrhosis of liver (CMS/HCC) documented in this encounter Administered Medications Inactive Administered Medications - up to 3 most recent administrations Medication Order MAR Action Action Date Dose Rate Site albumin human 25 % infusion 25 g 25 g, Intravenous, Once, 1 dose, On Cassia 01/08/25 at 1200, RoutineIndications:Hypotension New Bag 01/08/2025 12:18 PM EST 25 g albumin human 25 % infusion 25 g 25 g, Intravenous, Once, 1 dose, On 01/09/25 at 1015, RoutineIndications:Hypotension New Bag 01/09/2025 10:31 AM EST 25 g albumin human 5 % infusion 25 g 25 g, Intravenous, Every 8 hours, 6 doses, First dose on 01/03/25 at 1530, Last dose on 01/05/25 at 0730, Routine, Recovery(Phase II-Outpatient)/On Unit(Inpatient) New Bag 01/05/2025 6:56 AM EST 25 g 250 mL/hr New Bag 01/04/2025 11:57 PM EST 25 g 250 mL/hr New Bag 01/04/2025 3:01 PM EST 25 g 250 mL/hr amLODIPine (Norvasc) tablet 10 mg 10 mg, Oral, Daily, First dose (after last modification) on Sun01/14/25 at 0900, Until Discontinued, Routine Given 01/16/2025 8:32 AM EST 10 mg Given 01/15/2025 8:40 AM EST 10 mg Given 01/14/2025 9:15 AM EST 10 mg amLODIPine (Norvasc) tablet 5 mg 5 mg, Oral, Daily, First dose on 01/05/25 at 1745, Until Discontinued, Routine Given 01/13/2025 8:48 AM EST 5 mg Given 2025 8:52 AM EST 5 mg Given 01/11/2025 8:26 AM EST 5 mg aspirin chewable tablet 81 mg 81 mg, Oral, Daily, First dose on Cassia 01/08/25 at 1200, Until Discontinued, Routine Given 01/11/2025 8:26 AM EST 81 mg Given 01/10/2025 9:29 AM EST 81 mg Given 01/09/2025 8:44 AM EST 81 mg aspirin chewable tablet 81 mg 81 mg, Oral, Daily, First dose (after last reorder) on 01/12/25 at 1730, Until Discontinued, Routine Given 01/16/2025 8:31 AM EST 81 mg Given 01/15/2025 8:40 AM EST 81 mg Given 01/14/2025 9:16 AM EST 81 mg bisacodyl (Dulcolax) suppository 10 mg 10 mg, Rectal, Daily, First dose on Sun01/06/25 at 1115, Until Discontinued, Routine Given 01/09/2025 8:4 4 AM EST 10 mg Given 01/06/2025 3:00 PM EST 10 mg buPROPion SR (Wellbutrin SR) 12 hr tablet 150 mg 150 mg, Oral, 2 times daily, First dose on Sun01/02/25 at 2100, Until Discontinued, Routine Given 01/16/2025 8:32 AM EST 150 mg Given 01/15/2025 8:57 PM EST 150 mg Given 01/15/2025 8:42 AM EST 150 mg carvedilol (Coreg) tablet 12.5 mg 12.5 mg, Oral, 2 times daily, First dose (after last modification) on Sun01/04/25 at 0900, Until Discontinued, Routine Given 01/04/2025 9:21 PM EST 12.5 mg Given 01/04/2025 8:45 AM EST 12.5 mg carvedilol (Coreg) tablet 25 mg 25 mg, Oral, 2 times daily, First dose (after last modification) on Sun01/05/25 at 0900, Until Discontinued, Routine Given 01/16/2025 8:32 AM EST 25 mg Given 01/15/2025 8:58 PM EST 25 mg Given 01/15/2025 8:41 AM EST 25 mg carvedilol (Coreg) tablet 6.25 mg 6.25 mg, Oral, 2 times daily, First dose on Sun01/02/25 at 2100, Until Discontinued, Routine Given 01/03/2025 8:23 PM EST 6.25 mg Given 01/02/2025 8:49 PM EST 6.25 mg dextrose 10 % (D10W) bolus 125 mL 125 mL, Intravenous, Every 15 min PRN, Starting on Sun01/12/25 at 0617, Until Sun01/16/25 at 1932, Administer over 15 Minutes, Routine, low blood sugar BG 51-89 mg/dL New Bag 2025 1:19 PM EST 125 mL 500 mL/hr New Bag 2025 8:01 AM EST 125 mL 500 mL/hr New Bag 2025 6:26 AM EST 125 mL 500 mL/hr dextrose 10 % (D10W) bolus 250 mL 250 mL, Intravenous, Every 15 min PRN, Starting on Sun01/12/25 at 0617, Until Sun01/16/25 at 1932, Administer over 15 Minutes, Routine, PRN low blood sugar BG =/<50 mg/dL dextrose 5 % and sodium chloride 0.9 % infusion 30 mL/hr, Intravenous, Continuous, Starting on 01/03/25 at 0000, Until 01/03/25 at 1517, Routine Rate/Dose Verify 01/03/2025 6:00 AM EST 30 mL/hr 30 mL/hr Rate/Dose Verify 01/03/2025 5:00 AM EST 30 mL/hr 30 mL/h r Rate/Dose Verify 01/03/2025 4:00 AM EST 30 mL/hr 30 mL/h r ergocalciferol (Vitamin D-2) capsule 50,000 Units 50,000 Units, Oral, Weekly, First dose on Sun01/09/25 at 0900, Until Discontinued, Routine Given 01/16/2025 8:31 AM EST 50,000 Units Given 01/09/2025 8:44 AM EST 50,000 Units escitalopram (Lexapro) tablet 10 mg 10 mg, Oral, Daily, First dose on 01/03/25 at 0900, Until Discontinued, Routine Given 01/16/2025 8:31 AM EST 10 mg Given 01/15/2025 8:41 AM EST 10 mg Given 01/14/2025 9:16 AM EST 10 mg fentaNYL (Sublimaze) injection 25 mcg 25 mcg, Intravenous, Every 2 hour PRN, Starting on 01/03/25 at 1726, Until Sun01/07/25 at 1302, Routine, Moderate/Severe Pain > or =3: CPOT; > or =4: FLACC, PAINAD, NPASS, NRS, White-Frances Faces; > or =5: DVPRS, NIPS Given 01/05/2025 9:13 AM EST 25 mcg Given 01/04/2025 7:30 AM EST 25 mcg Given 01/03/2025 6:26 PM EST 25 mcg fentaNYL (Sublimaze) injection 50 mcg 50 mcg, Intravenous, Every 2 hour PRN, Starting on Sun01/03/25 at 1726, Until Sun01/07/25 at 1302, Routine, Moderate/Severe Pain > or =3: CPOT; > or =4: FLACC, PAINAD, NPASS, NRS, White-Frances Faces; > or =5: DVPRS, NIPS Given 01/05/2025 3:54 AM EST 50 mcg Given 01/04/2025 10:33 PM EST 50 mcg Given 01/04/2025 7:12 PM EST 50 mcg fentaNYL (Sublimaze) injection Intravenous, As needed, Starting on Sun01/13/25 at 1604, Until Sun01/13/25 at 1612, Routine, Intraprocedure Given 01/13/2025 4:12 PM EST 50 mcg Given 01/13/2025 4:04 PM EST 50 mcg ferrous sulfate EC tablet 324 mg 324 mg, Oral, Daily with breakfast, First dose on Sun01/03/25 at 0800, Until Discontinued Given 01/16/2025 8:32 AM EST 324 mg Given 01/15/2025 8:41 AM EST 324 mg Given 01/14/2025 9:16 AM EST 324 mg fluconazole (Diflucan) tablet 200 mg 200 mg, Oral, Daily, First dose on Sun01/07/25 at 0900, Until Discontinued, Routine Given 01/16/2025 8:3 2 AM EST 200 mg Given 01/15/2025 8:41 AM EST 200 mg Given 01/14/2025 9:16 AM EST 200 mg fluconazole in NS (Diflucan) IVPB 200 mg 200 mg, Intravenous, Every 24 hours, First dose on 01/04/25 at 0000, Until Discontinued, Routine, Recovery(Phase II-Outpatient)/On Unit(Inpatient) New Bag 01/06/2025 12:15 AM EST 200 mg 100 mL/hr New Bag 01/04/2025 11:57 PM EST 200 mg 100 mL/hr New Bag 01/04/2025 12:20 AM EST 200 mg 100 mL/hr furosemide (Lasix) injection 80 mg 80 mg, Intravenous, Once, 1 dose, On Cassia 01/08/25 at 1200, Routine Given 01/08/2025 12:19 PM EST 80 mg gadoterate meglumine (Dotarem) 0.5 mmol/mL contrast injection 19.5 mL 19.5 mL (rounded from 19.44 mL = 0.2 mL/kg 97.2 kg), Intravenous, Once in imaging, 1 dose, Starting on Sun01/10/25 at 1512, Until Sun01/10/25 at 1612, Routine, Imaging Protocol Orders Given 01/10/2025 4:12 PM EST 19.5 mL glucagon (human recombinant) injection 1 mg 1 mg, Intramuscular, Every 15 min PRN, Starting on Sun01/12/25 at 0617, Until Sun01/16/25 at 1932, Routine, low blood sugar per Hypoglycemia Prevention and Treatment protocol glucose (Glutose) 40 % oral gel 15-30 grams of glucose 15-30 grams of glucose, Sublingual, Every 15 min PRN, Starting on Sun01/12/25 at 0617, Until Sun01/16/25 at 1932, Routine, low blood sugar, per Hypoglycemia Prevention and Treatment protocol heparin (porcine) injection 5,000 Units 5,000 Units, Subcutaneous, 2 times daily, First dose on Sun01/06/25 at 0945, Until Discontinued, Routine Given 01/14/2025 9:16 AM EST 5,000 Units Right Upper Arm (Back) Given 01/13/2025 8:02 PM EST 5,000 Units L eft Lower Abdomen Given 01/08/2025 8:56 PM EST 5,000 Units R ight Upper Arm (Back) heparin (porcine) injection 5,000 Units 5,000 Units, Subcutaneous, Every 8 hours, First dose (after last modification) on Sun01/14/25 at 1400, Until Discontinued, Routine Given 01/16/2025 1:20 PM EST 5,000 Units Right Upper Arm (Back) Given 01/16/2025 6:06 AM EST 5,000 Units L eft Lower Abdomen Given 01/15/2025 9:00 PM EST 5,000 Units R ight Lower Abdomen hydrALAZINE (Apresoline) injection 10 mg 10 mg, Intravenous, Every 1 hour PRN, Starting on 01/03/25 at 1657, Until Sun01/16/25 at 1932, Routine, high blood pressure, SBP>160, Second-line Given 01/03/2025 5:08 PM EST 10 mg hydrALAZINE (Apresoline) injection 20 mg 20 mg, Intravenous, Every 1 hour PRN, Starting on 01/03/25 at 1657, Until Sun01/16/25 at 1932, Routine, high blood pressure, SBP>160, Second-line Given 01/06/2025 7:25 AM EST 20 mg Given 01/05/2025 8:27 PM EST 20 mg Given 01/05/2025 7:13 AM EST 20 mg hydrOXYzine HCl (Atarax) tablet 10 mg 10 mg, Oral, Once, 1 dose, On Cassia 01/08/25 at 0930, Routine Given 01/08/2025 9:12 AM EST 10 mg hydrOXYzine HCl (Atarax) tablet 10 mg 10 mg, Oral, Every 6 hours PRN, Starting on 01/10/25 at 0837, Until Sun01/16/25 at 1932, Routine, Recovery(Phase II-Outpatient)/On Unit(Inpatient), anxiety, itching Given 2025 5:16 PM EST 10 mg Given 01/11/2025 6:45 PM EST 10 mg Given 01/11/2025 12:40 PM EST 10 mg indomethacin (Indocin) suppository Rectal, As needed, Starting on 01/12/25 at 1214, Until Sun01/12/25 at 1258, Routine, Intraprocedure Given 2025 12:14 PM EST 100 mg insulin lispro (Admelog) 100 units/mL injection - Correction - Standard Dose 0-5 Units, Subcutaneous, 3 times daily with meals, First dose on 01/11/25 at 1915, Until Discontinued, Routine, Recovery(Phase II-Outpatient)/On Unit(Inpatient) Given 01/16/2025 12:06 PM EST 1 Units Left Upper Arm (Back) Given 01/15/2025 8:43 AM EST 1 Units Le ft Upper Arm (Back) Given 01/14/2025 5:40 PM EST 1 Units Ri ght Upper Arm (Back) insulin lispro (Admelog) injection - Correction - Nighttime Dose 0-3 Units, Subcutaneous, 2 times nightly (2100 & 0300), First dose on 01/11/25 at 2100, Until Discontinued, Routine, Recovery(Phase II-Outpatient)/On Unit(Inpatient) insulin regular (HumuLIN R,NovoLIN R) 100 units/mL injection - Correction - Standard Dose 0-5 Units, Subcutaneous, Every 6 hours scheduled, First dose on Sun01/03/25 at 1800, Until Discontinued, Routine, Recovery(Phase II-Outpatient)/On Unit(Inpatient) Given 01/09/2025 1:00 PM EST 1 Units Right Upper Arm (Lizbeth k) Given 01/07/2025 5:42 PM EST 1 Units Le ft Lower Abdomen labetalol (Normodyne,Trandate) injection 10 mg 10 mg, Intravenous, Every 1 hour PRN, Starting on Sun01/03/25 at 1504, Until Sun01/16/25 at 1932, Routine, high blood pressure, SBP>160, First-line, HOLD for HR<60 Given 01/16/2025 4:43 AM EST 10 mg Given 01/04/2025 8:09 PM EST 10 mg Given 01/04/2025 7:46 PM EST 10 mg labetalol (Normodyne,Trandate) injection 20 mg 20 mg, Intravenous, Every 1 hour PRN, Starting on 01/03/25 at 1504, Until Sun01/16/25 at 1932, Routine, high blood pressure, SBP>160, First-line, HOLD for HR<60 Given 01/07/2025 7:19 PM EST 20 mg Given 01/05/2025 10:10 AM EST 20 mg Given 01/05/2025 7:26 AM EST 20 mg lactulose (Chronulac) 10 GM/15ML solution 10 g 10 g, Oral, 3 times daily, First dose on Sun01/02/25 at 1600, Until Discontinued, Routine Given 01/02/2025 8:50 PM EST 10 g Given 01/02/2025 3:55 PM EST 10 g levoFLOXacin (Levaquin) tablet 750 mg 750 mg, Oral, Daily, 7 doses, First dose on Sun01/15/25 at 1130, Last dose on Sun01/21/25 at 0900, Routine Given 01/16/2025 8:31 AM EST 750 mg Given 01/15/2025 10:51 AM EST 750 mg lidocaine (Xylocaine) 1 % injection - Pyxis Override Pull 1 dose, Starting on Sun01/14/25 at 1733, Until Sun01/14/25 at 1947 Given 01/14/2025 7:47 PM EST lidocaine (Xylocaine) 1 % injection 10 mL 10 mL, Injection, Once, 1 dose, On 01/10/25 at 1445, Routine, Recovery(Phase II-Outpatient)/On Unit(Inpatient) Given 01/10/2025 4:37 PM EST 10 mL lidocaine (Xylocaine) 1 % injection 20 mL 20 mL, Infiltration, Once, 1 dose, On 01/07/25 at 1345, Routine Given 01/07/2025 3:17 PM EST 20 mL lidocaine (Xylocaine) 1 % injection 20 mL 20 mL, Infiltration, Once, 1 dose, On Cassia 01/08/25 at 1200, Routine Given 01/08/2025 4:15 PM EST 20 mL lidocaine 0.9% in sodium bicarbonate (buffered lidocaine) solution solution As needed, Starting on 01/13/25 at 1614, Until 01/13/25 at 1614, Routine, Intraprocedure Given 01/13/2025 4:14 PM EST 10 mL magnesium sulfate IVPB 2 g 2 g, Intravenous, Once, 1 dose, On 01/10/25 at 1445, Routine, Recovery(Phase II-Outpatient)/On Unit(Inpatient) New Bag 01/10/2025 2:41 PM EST 2 g 25 mL/hr magnesium sulfate IVPB 2 g 2 g, Intravenous, Once, 1 dose, On 01/11/25 at 0730, Routine, Recovery(Phase II-Outpatient)/On Unit(Inpatient) New Bag 01/11/2025 8:24 AM EST 2 g 25 mL/hr magnesium sulfate IVPB 4 g 4 g, Intravenous, Every 4 hours, 2 doses, First dose on 01/03/25 at 1700, Last dose on 01/03/25 at 2100, Routine New Bag 01/03/2025 8:22 PM EST 4 g 25 mL/hr New Bag 01/03/2025 4:20 PM EST 4 g 25 mL/hr methocarbamol (Robaxin) tablet 500 mg 500 mg, Oral, 3 times daily PRN, Starting on 01/03/25 at 1921, Until 01/04/25 at 1057, Routine, muscle spasms Given 01/03/2025 8:01 PM EST 500 mg methocarbamol (Robaxin) tablet 500 mg 500 mg, Oral, 4 times daily, First dose (after last modification) on Sun01/04/25 at 1400, Until Discontinued, Routine Given 01/16/2025 1:20 PM EST 500 mg Given 01/16/2025 8:31 AM EST 500 mg Given 01/15/2025 9:00 PM EST 500 mg methylPREDNISolone sodium succinate (PF) (SOLU-Medrol) 250 mg in sodium chloride 0.9 % 100 mL IVPB 250 mg, Intravenous, Once, 1 dose, On Sun01/04/25 at 0900, at 114 mL/hr, Routine Given 01/04/2025 10:39 AM EST 250 mg 114 mL/hr methylPREDNISolone sodium succinate (PF) (SOLU-Medrol) 250 mg in sodium chloride 0.9 % 100 mL IVPB 250 mg, Intravenous, Once, 1 dose, On Sun01/13/25 at 0830, at 114 mL/hr, Routine Given 01/13/2025 8:46 AM EST 250 mg 114 mL/hr methylPREDNISolone sodium succinate (PF) (SOLU-Medrol) 250 mg in sodium chloride 0.9 % 100 mL IVPB 250 mg, Intravenous, Once, 1 dose, On Sun01/13/25 at 1000, at 114 mL/hr, Routine Given 01/13/2025 10:26 AM EST 250 mg 114 mL/hr methylPREDNISolone sodium succinate (PF) (SOLU-Medrol) 500 mg in sodium chloride 0.9 % 100 mL IVPB 500 mg, Intravenous, Every 24 hours, 2 doses, First dose on Sun01/14/25 at 0930, Last dose on Sun01/15/25 at 0930, at 114 mL/hr, Routine New Bag 01/15/2025 10:21 AM EST 500 mg 114 mL/hr New Bag 01/14/2025 9:50 AM EST 500 mg 114 mL/hr methylPREDNISolone sodium succinate (PF) (SOLU-Medrol) injection 100 mg 100 mg, Intravenous, Once, 1 dose, On Sun01/06/25 at 0900, Routine Given 01/06/2025 8:12 AM EST 100 mg methylPREDNISolone sodium succinate (PF) (SOLU-Medrol) injection 125 mg 125 mg, Intravenous, Once, 1 dose, On Sun01/05/25 at 0900, Routine Given 01/05/2025 8:25 AM EST 125 mg methylPREDNISolone sodium succinate (PF) (SOLU-Medrol) injection 30 mg 30 mg, Intravenous, Once, 1 dose, On Sun01/08/25 at 0900, Routine Given 01/08/2025 9:03 AM EST 30 mg methylPREDNISolone sodium succinate (PF) (SOLU-Medrol) injection 60 mg 60 mg, Intravenous, Once, 1 dose, On Sun01/07/25 at 0900, Routine Given 01/07/2025 8:14 AM EST 60 mg midazolam (Versed) injection Intravenous, As needed, Starting on Sun01/13/25 at 1604, Until Sun01/13/25 at 1612, Routine, Intraprocedure Given 01/13/2025 4:12 PM EST 1 mg Given 01/13/2025 4:04 PM EST 1 mg mupirocin (Bactroban) 2 % ointment 1 Application Each Nostril, 2 times daily, 10 doses, First dose on Sun01/07/25 at 0900, Last dose on Sun01/11/25 at 2100, Routine Given 01/11/2025 8:41 PM EST 1 Application Given 01/11/2025 8:26 AM EST 1 Application Given 01/10/2025 10:21 PM EST 1 Application mycophenolate (Cellcept) 1,000 mg in dextrose 5 % 250 mL IVPB 1,000 mg, Intravenous, 2 times daily, 6 doses, First dose on Sun01/03/25 at 2100, Last dose on Sun01/06/25 at 0900, at 152.5 mL/hr, Administer over 2 Hours, Routine New Bag 01/05/2025 8:19 PM EST 1,000 mg 152.5 mL/hr New Bag 01/05/2025 1:01 PM EST 1,000 mg 152.5 mL/hr New Bag 01/04/2025 10:24 PM EST 1,000 mg 152.5 mL/hr mycophenolate (Cellcept) 1,000 mg in dextrose 5 % 250 mL IVPB 1,000 mg, Intravenous, Once, 1 dose, On Sun01/06/25 at 1300, at 152.5 mL/hr, Administer over 2 Hours, STAT New Bag 01/06/2025 12:39 PM EST 1,000 mg 152.5 mL/hr mycophenolate (Cellcept) capsule 1,000 mg 1,000 mg, Oral, 2 times daily, First dose on 01/06/25 at 2100, Until Discontinued, Routine Given 01/11/2025 8:26 AM EST 1,000 mg Given 01/10/2025 10:21 PM EST 1,000 mg Given 01/10/2025 9:29 AM EST 1,000 mg mycophenolate (Cellcept) capsule 500 mg 500 mg, Oral, 2 times daily, First dose (after last modification) on 01/11/25 at 2100, Until Discontinued, Routine Given 01/15/2025 8:41 AM EST 500 mg Given 01/14/2025 9:10 PM EST 500 mg Given 01/14/2025 9:15 AM EST 500 mg mycophenolate (Cellcept) capsule 750 mg 750 mg, Oral, 2 times daily, First dose (after last modification) on Cassia 01/15/25 at 2100, Until Discontinued, Routine Given 01/16/2025 8:32 AM EST 750 mg Given 01/15/2025 8:58 PM EST 750 mg ondansetron (Zofran) injection 4 mg 4 mg, Intravenous, Every 6 hours PRN, Starting on 01/03/25 at 1430, Until Sun01/16/25 at 1932, Routine, Recovery(Phase II-Outpatient)/On Unit(Inpatient), nausea, vomiting Given 01/04/2025 5:22 PM EST 4 mg Given 01/04/2025 8:57 AM EST 4 mg Given 01/03/2025 7:51 PM EST 4 mg oxyCODONE (Roxicodone) immediate release tablet 10 mg 10 mg, Oral, Every 6 hours PRN, Starting on 01/03/25 at 1920, Until Sun01/09/25 at 0927, Routine, Moderate/Severe Pain > or =3: CPOT; > or =4: FLACC, PAINAD, NPASS, NRS, White-Frances Faces; > or =5: DVPRS, NIPS Given 01/08/2025 2:57 PM EST 10 mg Given 01/08/2025 9:04 AM EST 10 mg Given 01/07/2025 3:36 PM EST 10 mg oxyCODONE (Roxicodone) immediate release tablet 10 mg 10 mg, Oral, Every 4 hours PRN, Starting on Sun01/09/25 at 0926, Until Sun01/16/25 at 1932, Routine, Moderate/Severe Pain > or =3: CPOT; > or =4: FLACC, PAINAD, NPASS, NRS, White-Frances Faces; > or =5: DVPRS, NIPS Given 01/13/2025 5:49 AM EST 10 mg Given 01/11/2025 8:26 AM EST 10 mg Given 01/10/2025 10:26 PM EST 10 mg oxyCODONE (Roxicodone) immediate release tablet 5 mg 5 mg, Oral, Every 6 hours PRN, Starting on 01/03/25 at 1727, Until 01/03/25 at 1921, Routine, Moderate/Severe Pain > or =3: CPOT; > or =4: FLACC, PAINAD, NPASS, NRS, White-Frances Faces; > or =5: DVPRS, NIPS Given 01/03/2025 5:33 PM EST 5 mg oxyCODONE (Roxicodone) immediate release tablet 5 mg 5 mg, Oral, Every 6 hours PRN, Starting on 01/03/25 at 1920, Until Sun01/09/25 at 0927, Routine, Moderate/Severe Pain > or =3: CPOT; > or =4: FLACC, PAINAD, NPASS, NRS, White-Frances Faces; > or =5: DVPRS, NIPS Given 01/09/2025 5:11 AM EST 5 mg oxyCODONE (Roxicodone) immediate release tablet 5 mg 5 mg, Oral, Every 4 hours PRN, Starting on Sun01/09/25 at 0926, Until Sun01/16/25 at 1932, Routine, Moderate/Severe Pain > or =3: CPOT; > or =4: FLACC, PAINAD, NPASS, NRS, White-Frances Faces; > or =5: DVPRS, NIPS Given 01/15/2025 6:33 AM EST 5 mg Given 01/14/2025 6:27 AM EST 5 mg Given 01/13/2025 9:53 PM EST 5 mg pantoprazole (Protonix) EC tablet 40 mg 40 mg, Oral, 2 times daily, First dose on Sun01/02/25 at 2100, Until Discontinued, Routine Given 01/02/2025 8:4 9 PM EST 40 mg pantoprazole (Protonix) EC tablet 40 mg 40 mg, Oral, Daily, First dose on Sun01/05/25 at 0900, Until Discontinued, Routine Given 01/16/2025 8:32 AM EST 40 mg Given 01/15/2025 8:41 AM EST 40 mg Given 01/14/2025 9:15 AM EST 40 mg pantoprazole (Protonix) injection 40 mg 40 mg, Intravenous, Daily, First dose on Sun01/03/25 at 1530, Until Discontinued, Routine, Recovery(Phase II-Outpatient)/On Unit(Inpatient) Given 01/04/2025 8:46 AM EST 40 mg Given 01/03/2025 3:02 PM EST 40 mg phytonadione (Vitamin K) 10 mg in sodium chloride 0.9 % 50 mL IVPB 10 mg, Intravenous, Every 24 hours, 3 doses, First dose on Sun01/03/25 at 1530, Last dose on Sun01/05/25 at 1530, Routine, Recovery(Phase II-Outpatient)/On Unit(Inpatient) New Bag 01/05/2025 3:45 PM EST 10 mg 112 mL/hr New Bag 01/04/2025 3:01 PM EST 10 mg 112 mL/hr New Bag 01/03/2025 3:03 PM EST 10 mg 112 mL/hr piperacillin-tazobactam (Zosyn) 3.375 g in sodium chloride 0.9% 100 mL IVPB (vial adapter required) 3.375 g, Intravenous, Every 6 hours, 4 doses, First dose on Sun01/03/25 at 2000, Last dose on Sun01/04/25 at 1400, Administer over 0.5 Hours, Routine New Bag 01/04/2025 2:11 PM EST 3.375 g 220 mL/hr New Bag 01/04/2025 7:42 AM EST 3.375 g 220 mL/hr New Bag 01/04/2025 1:45 AM EST 3.375 g 220 mL/hr piperacillin-tazobactam (Zosyn) 4.5 g in sodium chloride 0.9% 100 mL IVPB (vial adapter required) 4.5 g, Intravenous, Every 6 hours, 27 doses, First dose on Sun01/11/25 at 0730, Last dose on Sun01/17/25 at 1930, Routine New Bag 01/15/2025 6:33 AM EST 4.5 g 36.7 m L/hr New Bag 01/15/2025 2:25 AM EST 4.5 g 36.7 mL/hr New Bag 01/14/2025 9:11 PM EST 4.5 g 36.7 mL/hr polyethylene glycol (Miralax) packet 17 g 17 g, Oral, Daily, First dose on Sun01/06/25 at 1030, Until Discontinued, Routine Given 01/06/2025 10:00 AM EST 17 g polyethylene glycol (Miralax) packet 17 g 17 g, Oral, Daily, First dose on Sun01/06/25 at 1115, Until Discontinued, Routine Given 01/15/2025 8:40 AM EST 17 g Given 01/10/2025 9:27 AM EST 17 g Given 01/09/2025 8:44 AM EST 17 g potassium chloride CR (Klor-Con) ER tablet 20 mEq 20 mEq, Oral, Once, 1 dose, On Sun01/11/25 at 0730, Routine, Recovery(Phase II-Outpatient)/On Unit(Inpatient) Given 01/11/2025 8:26 AM EST 20 mEq potassium chloride IVPB 10 mEq 10 mEq, Intravenous, Every 1 hour, 4 doses, First dose on Sun01/12/25 at 0715, Last dose on Sun01/12/25 at 1015, RoutineIndications:Hypokalemia New Bag 2025 7:43 AM EST 10 mEq 100 mL/hr predniSONE (Deltasone) tablet 10 mg 10 mg, Oral, Daily, First dose on Sun02/10/25 at 0900, Until Discontinued, Routine predniSONE (Deltasone) tablet 20 mg 20 mg, Oral, Daily, 5 doses, First dose on Sun02/05/25 at 0900, Last dose on Sun02/09/25 at 0900, Routine predniSONE (Deltasone) tablet 30 mg 30 mg, Oral, Daily, 5 doses, First dose on Sun01/31/25 at 0900, Last dose on Sun02/04/25 at 0900, Routine predniSONE (Deltasone) tablet 40 mg 40 mg, Oral, Daily, 5 doses, First dose on Sun01/26/25 at 0900, Last dose on Sun01/30/25 at 0900, Routine predniSONE (Deltasone) tablet 5 mg 5 mg, Oral, Daily with breakfast, First dose on Sun01/09/25 at 0800, Until Discontinued, Routine, Recovery(Phase II-Outpatient)/On Unit(Inpatient)Indications:Transpla nt Status Given 01/14/2025 9:15 AM EST 5 mg Given 01/13/2025 8:49 AM EST 5 mg Given 2025 8:52 AM EST 5 mg predniSONE (Deltasone) tablet 50 mg 50 mg, Oral, Daily, 5 doses, First dose on Sun01/21/25 at 0900, Last dose on Sun01/25/25 at 0900, Routine predniSONE (Deltasone) tablet 60 mg 60 mg, Oral, Daily, 5 doses, First dose on Sun01/16/25 at 0900, Last dose on Sun01/20/25 at 0900, Routine Given 01/16/2025 8:31 AM EST 60 mg propofol (Diprivan) infusion 10 mg/mL 10-50 mcg/kg/min 106 kg (6.36-31.8 mL/hr), Intravenous, Titrated, Starting on 01/03/25 at 1545, Until 01/03/25 at 1721, Routine Rate Change - Dual Sign 01/03/2025 4:50 PM EST 10 mcg/kg/min 6.36 mL/hr Rate Change - Dual Sign 01/03/2025 4:20 PM EST 15 mcg/kg/m in 9.54 mL/hr Rate/Dose Verify 01/03/2025 4:00 PM EST 20 mcg/kg/min 12.7 2 mL/hr rifAXIMin (Xifaxan) tablet 550 mg 550 mg, Oral, 2 times daily, First dose on Sun01/02/25 at 2100, Until Discontinued, Routine Given 01/02/2025 8:49 PM EST 550 mg senna-docusate (Lauren-Colace) 8.6-50 MG per tablet 1 tablet 1 tablet, Oral, Daily, First dose on Sun01/06/25 at 1030, Until Discontinued, Routine Given 01/06/2025 10:00 AM EST 1 tablet senna-docusate (Lauren-Colace) 8.6-50 MG per tablet 2 tablet 2 tablet, Oral, 2 times daily, First dose on Sun01/06/25 at 1115, Until Discontinued, Routine Given 01/15/2025 8:58 PM EST 2 tablets Given 01/15/2025 8:41 AM EST 2 tablets Given 01/14/2025 9:15 AM EST 2 tablets sodium chloride 0.9 % flush 10 mL 10 mL, Intravenous, Every 12 hours, First dose on 01/03/25 at 1700, Until Discontinued, Routine Given 01/16/2025 4:48 AM EST 10 mL Given 01/15/2025 5:34 PM EST 10 mL Given 01/15/2025 4:01 AM EST 10 mL sodium chloride 0.9 % flush 10 mL 10 mL, Intravenous, Every 1 hour PRN, Starting on 01/03/25 at 1608, Until Sun01/16/25 at 1932, Routine, Flush Before and After EVERY dose of medication. sodium chloride 0.9 % flush 10 mL 10 mL, Intravenous, Every 12 hours, First dose on Sun01/12/25 at 1115, Until Discontinued, Routine, Holding - Preprocedure Given 01/15/2025 10: 23 PM EST 10 mL Given 01/14/2025 10:16 PM EST 10 mL Given 01/14/2025 11:58 AM EST 10 mL sodium chloride 0.9 % flush 10 mL 10 mL, Intravenous, As needed, Starting on Sun01/12/25 at 1020, Until Sun01/16/25 at 1932, Routine, Holding - Preprocedure, line care sodium chloride 0.9 % flush 10 mL 10 mL, Intravenous, Every 12 hours, First dose on Sun01/12/25 at 1115, Until Discontinued, Routine, Holding - Preprocedure Given 01/14/2025 10: 17 PM EST 10 mL Given 01/14/2025 11:58 AM EST 10 mL Given 01/13/2025 10:23 PM EST 10 mL sodium chloride 0.9 % flush 10 mL 10 mL, Intravenous, As needed, Starting on Sun01/12/25 at 1020, Until Sun01/16/25 at 1932, Routine, Holding - Preprocedure, line care sodium chloride 0.9 % flush 10 mL 10 mL, Intravenous, Every 12 hours, First dose on Sun01/13/25 at 1000, Until Discontinued, Routine, On Unit - Preprocedure Given 01/15/2025 9:00 PM EST 10 mL Given 01/15/2025 8:44 AM EST 10 mL Given 01/14/2025 10:00 PM EST 10 mL sodium chloride 0.9 % flush 10 mL 10 mL, Intravenous, As needed, Starting on Tu01/13/25 at 0909, Until Sun01/16/25 at 1932, Routine, On Unit - Preprocedure, line care sodium chloride 0.9 % flush 10 mL 10 mL, Intravenous, Every 12 hours, First dose on Tu01/13/25 at 1615, Until Discontinued, Routine, Holding - Preprocedure Given 01/16/2025 3:34 AM EST 10 mL Given 01/15/2025 3:47 PM EST 10 mL Given 01/15/2025 8:43 AM EST 10 mL sodium chloride 0.9 % flush 10 mL 10 mL, Intravenous, As needed, Starting on Tu01/13/25 at 1515, Until Sun01/16/25 at 1932, Routine, Holding - Preprocedure, line care sodium chloride 0.9 % flush 20 mL 20 mL, Intravenous, Every 1 hour PRN, Starting on 01/03/25 at 1608, Until Sun01/16/25 at 1932, Routine, After blood draws and if any blood seen in tubing. sulfamethoxazole-trimethoprim (Bactrim) 400-80 MG per tablet 1 tablet 1 tablet, Oral, Daily, First dose on 01/10/25 at 0900, Until Discontinued, Routine Given 01/16/2025 8:31 AM EST 1 tablet Given 01/15/2025 8:41 AM EST 1 tablet Given 01/14/2025 9:15 AM EST 1 tablet tacrolimus (Prograf) capsule 1 mg 1 mg, Oral, 2 times daily (0600 & 1800), First dose on Cassia 01/08/25 at 1800, Until Discontinued, Routine Given 01/09/2025 5:11 AM EST 1 mg Given 01/08/2025 6:52 PM EST 1 mg tacrolimus (Prograf) capsule 1 mg 1 mg, Oral, Every evening (1800), First dose on Sun01/09/25 at 1800, Until Discontinued, Routine Given 01/09/2025 6:19 PM EST 1 mg tacrolimus (Prograf) capsule 1 mg 1 mg, Oral, 2 times daily (0600 & 1800), First dose (after last modification) on Sun01/13/25 at 1800, Until Discontinued, Routine Given 01/16/2025 6:06 AM EST 1 mg Given 01/15/2025 5:34 PM EST 1 mg Given 01/15/2025 6:33 AM EST 1 mg tacrolimus (Prograf) capsule 2 mg 2 mg, Oral, 2 times daily (0600 & 1800), First dose on 01/04/25 at 1815, Until Discontinued, Routine Given 01/06/2025 6:00 AM EST 2 mg Given 01/05/2025 5:48 PM EST 2 mg Given 01/05/2025 5:38 AM EST 2 mg tacrolimus (Prograf) capsule 2 mg 2 mg, Oral, Every morning (0600), First dose on 01/10/25 at 0600, Until Discontinued, Routine Given 01/13/2025 5:45 AM EST 2 mg Given 2025 5:58 AM EST 2 mg Given 01/11/2025 5:37 AM EST 2 mg tacrolimus (Prograf) capsule 2 mg 2 mg, Oral, Every evening (1800), First dose (after last modification) on 01/10/25 at 1800, Until Discontinued, Routine, Recovery(Phase II-Outpatient)/On Unit(Inpatient) Given 2025 5:16 PM EST 2 mg Given 01/11/2025 6:45 PM EST 2 mg Given 01/10/2025 6:18 PM EST 2 mg torsemide (Demadex) tablet 20 mg 20 mg, Oral, Once, 1 dose, On Sun01/09/25 at 1015, Routine Given 01/09/2025 10:31 AM EST 20 mg traZODone (Desyrel) tablet 50 mg 50 mg, Oral, Nightly, First dose on Sun01/02/25 at 2100, Until Discontinued, Routine Given 01/02/2025 8:4 9 PM EST 50 mg traZODone (Desyrel) tablet 50 mg 50 mg, Oral, Nightly PRN, Starting on 01/03/25 at 1545, Until Cassia 01/08/25 at 1230, Routine, sleep Given 01/06/2025 9:22 PM EST 50 mg Given 01/04/2025 9:09 PM EST 50 mg Given 01/03/2025 8:01 PM EST 50 mg traZODone (Desyrel) tablet 50 mg 50 mg, Oral, Nightly, First dose on Cassia 01/08/25 at 2100, Until Discontinued, Routine Given 01/15/2025 8:5 8 PM EST 50 mg Given 01/14/2025 9:10 PM EST 50 mg Given 01/13/2025 8:02 PM EST 50 mg ursodiol (Actigall) capsule 300 mg 300 mg, Oral, 2 times daily, First dose on 01/10/25 at 1200, Until Discontinued, Routine Given 01/16/2025 8:31 AM EST 300 mg Given 01/15/2025 8:59 PM EST 300 mg Given 01/15/2025 8:44 AM EST 300 mg ursodiol (Actigall) capsule 600 mg 600 mg, Oral, 2 times daily, First dose (after last modification) on Sun01/16/25 at 2100, Until Discontinued, Routine valGANciclovir (Valcyte) tablet 450 mg 450 mg, Oral, Daily, First dose on 01/10/25 at 0900, Until Discontinued, Routine Given 01/16/2025 8:3 2 AM EST 450 mg Given 01/15/2025 8:40 AM EST 450 mg Given 01/14/2025 9:16 AM EST 450 mg documented in this encounter Active and Recently Administered Medications Times are shown in EST. Scheduled Medication Order 01/14/2025 01/15/2025 01/16/2025 amLODIPine (Norvasc) tablet 10 mg 10 mg, Oral, Daily, First dose (after last modification) on Sun01/14/25 at 0900, Until Discontinued, Routine 0915 (Given - Provider: Bree Mcfarland RN) 0840 (Given - Provider: Abigail Richmond RN) 0832 (Given - Provider: Armida Oscar RN) aspirin chewable tablet 81 mg 81 mg, Oral, Daily, First dose (after last reorder) on 01/12/25 at 1730, Until Discontinued, Routine 0916 (Given - Provider: Bree Mcfarland RN) 0840 (Given - Provider: Abigail Richmond RN) 0831 (Given - Provider: Armida Oscar RN) bisacodyl (Dulcolax) suppository 10 mg 10 mg, Rectal, Daily, First dose on Sun01/06/25 at 1115, Until Discontinued, Routine 0920 (Not Given - Provider: Bree Mcfarland RN - Reason: Patient/Family/Repre sentative Refused) 0826 (Not Given - Provider: Abigail Richmond RN - Reason: Patient/Family/Repre sentative Refused) 0838 (Not Given - Provider: Armida Oscar RN - Reason: Patient/Family/Represen tative Refused) buPROPion SR (Wellbutrin SR) 12 hr tablet 150 mg 150 mg, Oral, 2 times daily, First dose on Sun01/02/25 at 2100, Until Discontinued, Routine 0915 (Given - Provider: Bree Mcfarland RN)2116 (Given - Provider: Mirtha Miranda RN) 841 (Given - Provider: Abigail Richmond RN)2056 (Given - Provider: Allison Rosenbaum RN) 0832 (Given - Provider: Armida Oscar RN) carvedilol (Coreg) tablet 25 mg 25 mg, Oral, 2 times daily, First dose (after last modification) on Sun01/05/25 at 0900, Until Discontinued, Routine 0916 (Given - Provider: Bree Mcfarland RN)2109 (Given - Provider: Mirtha Miranda, RN) 0841 (Given - Provider: Abigail Richmond RN)2057 (Given - Provider: Allison Rosenbaum RN) 0832 (Given - Provider: Armida Oscar RN) ergocalciferol (Vitamin D-2) capsule 50,000 Units 50,000 Units, Oral, Weekly, First dose on Sun01/09/25 at 0900, Until Discontinued, Routine 0831 (Given - Provid er: Armida Oscar RN) escitalopram (Lexapro) tablet 10 mg 10 mg, Oral, Daily, First dose on Sun01/03/25 at 0900, Until Discontinued, Routine 0916 (Given - Provider: Bree Mcfarland RN) 0841 (Given - Provider: Abigail Richmond RN) 0831 (Given - Provider: Armida Oscar RN) ferrous sulfate EC tablet 324 mg 324 mg, Oral, Daily with breakfast, First dose on Sun01/03/25 at 0800, Until Discontinued 0916 (Given - Provider: Bree Mcfarland RN) 0841 (Given - Provider: Abigail Richmond RN) 0832 (Given - Provider: Armida Oscar RN) fluconazole (Diflucan) tablet 200 mg 200 mg, Oral, Daily, First dose on Sun01/07/25 at 0900, Until Discontinued, Routine 0916 (Given - Provider: Bree Mcfarland RN) 0841 (Given - Provider: Abigail Richmond RN) 0832 (Given - Provider: Armida Oscar RN) heparin (porcine) injection 5,000 Units (CANCELED) 5,000 Units, Subcutaneous, 2 times daily, First dose on Sun01/06/25 at 0945, Until Discontinued, Routine 09 (Given - Provider: Bree Mcfarland RN) heparin (porcine) injection 5,000 Units 5,000 Units, Subcutaneous, Every 8 hours, First dose (after last modification) on Sun01/14/25 at 1400, Until Discontinued, Routine 1431 (Given - Provider: Bree Mcfarland RN)2110 (Given - Provider: Mirtha Miranda RN) 0633 (Given - Provider: Mirtha Miranda RN)1349 (Given - Provider: Abigail Richmond RN)2100 (Given - Provider: Allison Rosenbaum RN) 0606 (Given - Provider: Allison Rosenbaum RN)1320 (Given - Provider: Armida Oscar RN) insulin lispro (Admelog) 100 units/mL injection - Correction - Standard Dose 0-5 Units, Subcutaneous, 3 times daily with meals, First dose on Sun01/11/25 at 1915, Until Discontinued, Routine, Recovery(Phase II-Outpatient)/On Unit(Inpatient) 0849 (Not Given - Provider: Bree Mcfarland RN - Reason: Order parameters not met)1133 (Not Given - Provider: Bree Mcfarland RN - Reason: Order parameters not met)1740 (Given - Provider: Bree Mcfarland RN) 0843 (Given - Provider: Abigail J Besa, RN)1207 (Not Given - Provider: Abigail Richmond RN - Reason: Order parameters not met)1803 (Not Given - Provider: Abigail Richmond RN - Reason: Order parameters not met) 0814 (Not Given - Provider: Armida Oscar RN - Reason: Order parameters not met - Comment: FSBG 135)1206 (Given - Provider: Armida Oscar RN)1730 (Canceled Entry - Provider: Automatic Discharge Provider - Comment: Automatically canceled at discontinue of medication order) insulin lispro (Admelog) injection - Correction - Nighttime Dose 0-3 Units, Subcutaneous, 2 times nightly (2099 & 030), First dose on 01/11/25 at 2100, Until Discontinued, Routine, Recovery(Phase II-Outpatient)/On Unit(Inpatient) 0213 (Not Given - Provider: Mirtha Miranda RN - Reason: Order parameters not met)2115 (Not Given - Provider: Mirtha Miranda RN - Reason: Order parameters not met) 0227 (Not Given - Provider: Mirtha Miranda RN - Reason: Order parameters not met)2100 (Not Given - Provider: Allison Rosenbaum RN - Reason: Order parameters not met) 0303 (Not Given - Provider: Allison Rosenbaum RN - Reason: Order parameters not met) levoFLOXacin (Levaquin) tablet 750 mg 750 mg, Oral, Daily, 7 doses, First dose on Cassia 01/15/25 at 1130, Last dose on 01/21/25 at 0900, Routine 1051 (Given - Provider: Abigail Richmond RN) 0831 (Given - Provider: Armida Oscar RN) methocarbamol (Robaxin) tablet 500 mg 500 mg, Oral, 4 times daily, First dose (after last modification) on 01/04/25 at 1400, Until Discontinued, Routine 0916 (Given - Provider: Bree Mcfarland RN)1431 (Given - Provider: Bree Mcfarland RN)1740 (Given - Provider: Bree Mcfarland RN)2110 (Given - Provider: Mirtha Miranda RN) 0840 (Given - Provider: Abigail Richmond RN)1350 (Given - Provider: Abigail Richmond RN)1734 (Given - Provider: Abigail Richmond RN)2100 (Given - Provider: Allison Rosenbaum RN) 0831 (Given - Provider: Armida Oscar, RN)1320 (Given - Provider: Armida Oscar RN)1800 (Canceled Entry - Provider: Automatic Discharge Provider - Comment: Automatically canceled at discontinue of medication order) methylPREDNISolone sodium succinate (PF) (SOLU-Medrol) 500 mg in sodium chloride 0.9 % 100 mL IVPB (COMPLETED) 500 mg, Intravenous, Every 24 hours, 2 doses, First dose on Sun01/14/25 at 0930, Last dose on Sun01/15/25 at 0930, at 114 mL/hr, Routine 0950 (New Bag - Provider: Fariha Hill RN) 1021 (New Bag - Provider: Abigail Richmond RN) mycophenolate (Cellcept) capsule 500 mg (CANCELED) 500 mg, Oral, 2 times daily, First dose (after last modification) on Sun01/11/25 at 2100, Until Discontinued, Routine 0915 (Given - Provider: Bree Mcfarland RN)2110 (Given - Provider: Mirtha Miranda, DEMETRIA) 0841 (Given - Provider: Abigail Richmond, DEMETRIA) mycophenolate (Cellcept) capsule 750 mg 750 mg, Oral, 2 times daily, First dose (after last modification) on Sun01/15/25 at 2100, Until Discontinued, Routine 2057 (Given - Provider: Allison Rosenbaum RN) 0832 (Given - Provider: Armida Oscar, DEMETRIA) pantoprazole (Protonix) EC tablet 40 mg 40 mg, Oral, Daily, First dose on Sun01/05/25 at 0900, Until Discontinued, Routine 0915 (Given - Provider: Bree Mcfarland RN) 0841 (Given - Provider: Abigail Richmond, DEMETRIA) 0832 (Given - Provider: Armida Oscar RN) piperacillin-tazobacta m (Zosyn) 4.5 g in sodium chloride 0.9% 100 mL IVPB (vial adapter required) (CANCELED) 4.5 g, Intravenous, Every 6 hours, 27 doses, First dose on Sun01/11/25 at 0730, Last dose on Sun01/17/25 at 1930, Routine 0103 (New Bag - Provider: Mirtha Miranda, RN)0630 (New Bag - Provider: Mirtha Miranda, RN)1430 (New Bag - Provider: Bree Mcfarland, RN)2111 (New Bag - Provider: Mirtha Miarnda RN - Comment: patient wanted to shower at scheduled time) 0225 (New Bag - Provider: Mirtha Miranda, RN)0633 (New Bag - Provider: Mirtha Miranda, RN) polyethylene glycol (Miralax) packet 17 g 17 g, Oral, Daily, First dose on Sun01/06/25 at 1115, Until Discontinued, Routine 0920 (Not Given - Provider: Bree Mcfarland RN - Reason: Patient/Family/Repre sentative Refused) 0840 (Given - Provider: Abigail Richmond RN) 0838 (Not Given - Provider: Armida Oscar RN - Reason: Patient/Family/Represen tative Refused) predniSONE (Deltasone) tablet 10 mg(Linked Group 1) 10 mg, Oral, Daily, First dose on Sun02/10/25 at 0900, Until Discontinued, Routine predniSONE (Deltasone) tablet 20 mg(Linked Group 1) 20 mg, Oral, Daily, 5 doses, First dose on Sun02/05/25 at 0900, Last dose on Sun02/09/25 at 0900, Routine predniSONE (Deltasone) tablet 30 mg(Linked Group 1) 30 mg, Oral, Daily, 5 doses, First dose on Sun01/31/25 at 0900, Last dose on Sun02/04/25 at 0900, Routine predniSONE (Deltasone) tablet 40 mg(Linked Group 1) 40 mg, Oral, Daily, 5 doses, First dose on Sun01/26/25 at 0900, Last dose on Sun01/30/25 at 0900, Routine predniSONE (Deltasone) tablet 5 mg (CANCELED) 5 mg, Oral, Daily with breakfast, First dose on Sun01/09/25 at 0800, Until Discontinued, Routine, Recovery(Phase II-Outpatient)/On Unit(Inpatient) 0915 (Given - Provider: Bree Mcfarland, DEMETRIA) predniSONE (Deltasone) tablet 50 mg(Linked Group 1) 50 mg, Oral, Daily, 5 doses, First dose on Sun01/21/25 at 0900, Last dose on Sun01/25/25 at 0900, Routine predniSONE (Deltasone) tablet 60 mg(Linked Group 1) 60 mg, Oral, Daily, 5 doses, First dose on Sun01/16/25 at 0900, Last dose on Sun01/20/25 at 0900, Routine 0831 (Given - Provid er: Armida Oscar RN) senna-docusate (Lauren-Colace) 8.6-50 MG per tablet 2 tablet 2 tablet, Oral, 2 times daily, First dose on Sun01/06/25 at 1115, Until Discontinued, Routine 0915 (Given - Provider: Bree Mcfarland RN)2114 (Not Given - Provider: Mirtha Miranda RN - Reason: Patient/Family/Repre sentative Refused) 0841 (Given - Provider: Abigail Richmond RN)2058 (Given - Provider: Allison Rosenbaum RN) 0838 (Not Given - Provider: Armida Oscar RN - Reason: Patient/Family/Represen tative Refused) sodium chloride 0.9 % flush 10 mL 10 mL, Intravenous, Every 12 hours, First dose on Sun01/03/25 at 1700, Until Discontinued, Routine 0411 (Given - Provider: Mirtha Miranda, RN)1740 (Given - Provider: Bree Mcfarland RN) 0401 (Given - Provider: Mirtha Miranda, DEMETRIA)1734 (Given - Provider: Abigail Richmond, DEMETRIA) 0448 (Given - Provider: Allison Rosenbaum RN)1700 (Canceled Entry - Provider: Armida Oscar RN) sodium chloride 0.9 % flush 10 mL(Linked Group 2) 10 mL, Intravenous, Every 12 hours, First dose on Sun01/12/25 at 1115, Until Discontinued, Routine, Holding - Preprocedure 1158 (Given - Provider: rBee Mcfarland RN)2216 (Given - Provider: Mirtha Miranda, RN) 1207 (Not Given - Provider: Abigail Richmond RN - Reason: Hold for condition: must add comment - Comment: fluids running)2223 (Given - Provider: Allison Rosenbaum RN) 1115 (Canceled Entry - Provider: Armida Oscar RN) sodium chloride 0.9 % flush 10 mL(Linked Group 3) 10 mL, Intravenous, Every 12 hours, First dose on Sun01/12/25 at 1115, Until Discontinued, Routine, Holding - Preprocedure 1158 (Given - Provider: Bree Mcfarland RN)2217 (Given - Provider: Mirtha Miranda RN) 1207 (Not Given - Provider: Abigail Richmond RN - Reason: Hold for condition: must add comment - Comment: fluids running)2222 (Not Given - Provider: Allison Rosenbaum RN - Reason: Hold for condition: must add comment - Comment: PIV already flushed) 1115 (Canceled Entry - Provider: Armida Oscar RN) sodium chloride 0.9 % flush 10 mL(Linked Group 4) 10 mL, Intravenous, Every 12 hours, First dose on Sun01/13/25 at 1000, Until Discontinued, Routine, On Unit - Preprocedure 0919 (Given - Provider: Bree Mcfarland RN)2200 (Given - Provider: Mirtha Miranda RN) 0844 (Given - Provider: Abigail Richmond RN)2100 (Given - Provider: Allison Rosenbaum RN) 1000 (Canceled Entry - Provider: Armida Oscar RN) sodium chloride 0.9 % flush 10 mL(Linked Group 5) 10 mL, Intravenous, Every 12 hours, First dose on Sun01/13/25 at 1615, Until Discontinued, Routine, Holding - Preprocedure 0354 (Given - Provider: Mirtha Miranda RN)1600 (Given - Provider: Bree Mcfarland RN) 0323 (Given - Provider: Mirtha Miranda, RN)0843 (Given - Provider: Abigail Richmond RN)1547 (Given - Provider: Abigail Richmond, DEMETRIA) 0334 (Given - Provider: Allison Rosenbaum RN)1615 (Canceled Entry - Provider: Armida Oscar RN) sulfamethoxazole-trime thoprim (Bactrim) 400-80 MG per tablet 1 tablet 1 tablet, Oral, Daily, First dose on Sun01/10/25 at 0900, Until Discontinued, Routine 0915 (Given - Provider: Bree Mcfarland RN) 0841 (Given - Provider: Abigail Richmond RN) 0831 (Given - Provider: Armida Oscar RN) tacrolimus (Prograf) capsule 1 mg 1 mg, Oral, 2 times daily (0600 & 1800), First dose (after last modification) on Sun01/13/25 at 1800, Until Discontinued, Routine 0627 (Given - Provider: Mirtha Miranda RN)1740 (Given - Provider: Bree Mcfarland RN) 0633 (Given - Provider: Mirtha Miranda, RN)1734 (Given - Provider: Abigail Richmond, DEMETRIA) 0606 (Given - Provider: Allison Rosenbaum RN)1800 (Canceled Entry - Provider: Automatic Discharge Provider - Comment: Automatically canceled at discontinue of medication order) traZODone (Desyrel) tablet 50 mg 50 mg, Oral, Nightly, First dose on Cassia 01/08/25 at 2100, Until Discontinued, Routine 2109 (Given - Provider: Mirtha Miranda RN) 2057 (Given - Provider: Allison Rosenbaum, DEMETRIA) ursodiol (Actigall) capsule 300 mg (CANCELED) 300 mg, Oral, 2 times daily, First dose on 01/10/25 at 1200, Until Discontinued, Routine 0915 (Given - Provider: Bree Mcfarland RN)2109 (Given - Provider: Mirtha Miranda RN) 0844 (Given - Provider: Abigail Richmond RN)2058 (Given - Provider: Allison Rosenbaum RN) 0831 (Given - Provider: Armida Oscar, DEMETRIA) ursodiol (Actigall) capsule 600 mg 600 mg, Oral, 2 times daily, First dose (after last modification) on Sun01/16/25 at 2100, Until Discontinued, Routine valGANciclovir (Valcyte) tablet 450 mg 450 mg, Oral, Daily, First dose on 01/10/25 at 0900, Until Discontinued, Routine 0916 (Given - Provider: Bree Mcfarland RN) 0840 (Given - Provider: Abigail Richmond RN) 0832 (Given - Provider: Armida Oscar RN) PRN Medication Order 01/14/2025 01/15/2025 01/16/2025 dextrose 10 % (D10W) bolus 125 mL(Linked Group 6) 125 mL, Intravenous, Every 15 min PRN, Starting on 01/12/25 at 0617, Until Sun01/16/25 at 1932, Administer over 15 Minutes, Routine, low blood sugar BG 51-89 mg/dL dextrose 10 % (D10W) bolus 250 mL(Linked Group 6) 250 mL, Intravenous, Every 15 min PRN, Starting on 01/12/25 at 0617, Until Sun01/16/25 at 1932, Administer over 15 Minutes, Routine, PRN low blood sugar BG =/<50 mg/dL glucagon (human recombinant) injection 1 mg(Linked Group 6) 1 mg, Intramuscular, Every 15 min PRN, Starting on 01/12/25 at 0617, Until Sun01/16/25 at 193, Routine, low blood sugar per Hypoglycemia Prevention and Treatment protocol glucose (Glutose) 40 % oral gel 15-30 grams of glucose(Linked Group 6) 15-30 grams of glucose, Sublingual, Every 15 min PRN, Starting on 01/12/25 at 0617, Until Sun01/16/25 at 193, Routine, low blood sugar, per Hypoglycemia Prevention and Treatment protocol hydrALAZINE (Apresoline) injection 10 mg(Linked Group 7) 10 mg, Intravenous, Every 1 hour PRN, Starting on 01/03/25 at 1657, Until Sun01/16/25 at 1932, Routine, high blood pressure, SBP>160, Second-line hydrALAZINE (Apresoline) injection 20 mg(Linked Group 7) 20 mg, Intravenous, Every 1 hour PRN, Starting on 01/03/25 at 1657, Until Sun01/16/25 at 1932, Routine, high blood pressure, SBP>160, Second-line hydrOXYzine HCl (Atarax) tablet 10 mg 10 mg, Oral, Every 6 hours PRN, Starting on 01/10/25 at 0837, Until Sun01/16/25 at 1932, Routine, Recovery(Phase II-Outpatient)/On Unit(Inpatient), anxiety, itching labetalol (Normodyne,Trandate) injection 10 mg(Linked Group 8) 10 mg, Intravenous, Every 1 hour PRN, Starting on 01/03/25 at 1504, Until Sun01/16/25 at 1932, Routine, high blood pressure, SBP>160, First-line, HOLD for HR<60 0443 (Given - Provider: Allison Rosenbaum RN) labetalol (Normodyne,Trandate) injection 20 mg(Linked Group 8) 20 mg, Intravenous, Every 1 hour PRN, Starting on 01/03/25 at 1504, Until Sun01/16/25 at 1932, Routine, high blood pressure, SBP>160, First-line, HOLD for HR<60 0443 (See Alternativ e - Provider: Allison Rosenbaum RN) ondansetron (Zofran) injection 4 mg 4 mg, Intravenous, Every 6 hours PRN, Starting on 01/03/25 at 1430, Until Sun01/16/25 at 1932, Routine, Recovery(Phase II-Outpatient)/On Unit(Inpatient), nausea, vomiting oxyCODONE (Roxicodone) immediate release tablet 10 mg(Linked Group 9) 10 mg, Oral, Every 4 hours PRN, Starting on Sun01/09/25 at 0926, Until Sun01/16/25 at 1932, Routine, Moderate/Severe Pain > or =3: CPOT; > or =4: FLACC, PAINAD, NPASS, NRS, White-Frances Faces; > or =5: DVPRS, NIPS 0627 (See Alternative - Provider: Mirtha Miranda RN) 0633 (See Alternative - Provider: Mirtha Miranda RN) oxyCODONE (Roxicodone) immediate release tablet 5 mg(Linked Group 9) 5 mg, Oral, Every 4 hours PRN, Starting on Sun01/09/25 at 0926, Until Sun01/16/25 at 1932, Routine, Moderate/Severe Pain > or =3: CPOT; > or =4: FLACC, PAINAD, NPASS, NRS, White-Frances Faces; > or =5: DVPRS, NIPS 0627 (Given - Provider: Mirtha Miranda, DEMETRIA) 0633 (Given - Provider: Mirtha Miranda RN) sodium chloride 0.9 % flush 10 mL 10 mL, Intravenous, Every 1 hour PRN, Starting on 01/03/25 at 1608, Until Sun01/16/25 at 1932, Routine, Flush Before and After EVERY dose of medication. sodium chloride 0.9 % flush 10 mL(Linked Group 2) 10 mL, Intravenous, As needed, Starting on Sun01/12/25 at 1020, Until Sun01/16/25 at 1932, Routine, Holding - Preprocedure, line care sodium chloride 0.9 % flush 10 mL(Linked Group 3) 10 mL, Intravenous, As needed, Starting on Sun01/12/25 at 1020, Until Sun01/16/25 at 1932, Routine, Holding - Preprocedure, line care sodium chloride 0.9 % flush 10 mL(Linked Group 4) 10 mL, Intravenous, As needed, Starting on Sun01/13/25 at 0909, Until Sun01/16/25 at 1932, Routine, On Unit - Preprocedure, line care sodium chloride 0.9 % flush 10 mL(Linked Group 5) 10 mL, Intravenous, As needed, Starting on Sun01/13/25 at 1515, Until Sun01/16/25 at 1932, Routine, Holding - Preprocedure, line care sodium chloride 0.9 % flush 20 mL 20 mL, Intravenous, Every 1 hour PRN, Starting on 01/03/25 at 1608, Until Sun01/16/25 at 1932, Routine, After blood draws and if any blood seen in tubing. No Frequency Medication Order 01/14/2025 01/15/2025 01/16/2025 lidocaine (Xylocaine) 1 % injection - Pyxis Override Pull (COMPLETED) 1 dose, Starting on Sun01/14/25 at 1733, Until Sun01/14/25 at 1947 1947 (Given - Provider: Bree Mcfarland RN - Comment: provider ordered different form of lidocaine that had to be tubed up, RN pulled lidocaine from pyxis via override. Coretta Campos (resident) with RN when pulling) Linked Groups Order Group 1: predniSONE (Deltasone) tablet 60 mgJump to med 60 mg, Oral, Daily, 5 doses, First dose on Sun01/16/25 at 0900, Last dose on Sun01/20/25 at 0900, Routine Followed by predniSONE (Deltasone) tablet 50 mgJump to med 50 mg, Oral, Daily, 5 doses, First dose on Sun01/21/25 at 0900, Last dose on Sun01/25/25 at 0900, Routine Followed by predniSONE (Deltasone) tablet 40 mgJump to med 40 mg, Oral, Daily, 5 doses, First dose on Sun01/26/25 at 0900, Last dose on Sun01/30/25 at 0900, Routine Followed by predniSONE (Deltasone) tablet 30 mgJump to med 30 mg, Oral, Daily, 5 doses, First dose on Sun01/31/25 at 0900, Last dose on Sun02/04/25 at 0900, Routine Followed by predniSONE (Deltasone) tablet 20 mgJump to med 20 mg, Oral, Daily, 5 doses, First dose on Sun02/05/25 at 0900, Last dose on Sun02/09/25 at 0900, Routine Followed by predniSONE (Deltasone) tablet 10 mgJump to med 10 mg, Oral, Daily, First dose on Sun02/10/25 at 0900, Until Discontinued, Routine Group 2: Insert peripheral IV (CANCELED) Once, On Sun01/12/25 at 1021, For 1 occurrence, Holding - Preprocedure And Saline lock IV (CANCELED) Once, On Sun01/12/25 at 1021, For 1 occurrence, Holding - Preprocedure And sodium chloride 0.9 % flush 10 mLJump to med 10 mL, Intravenous, Every 12 hours, First dose on Sun01/12/25 at 1115, Until Discontinued, Routine, Holding - Preprocedure And sodium chloride 0.9 % flush 10 mLJump to med 10 mL, Intravenous, As needed, Starting on Sun01/12/25 at 1020, Until Sun01/16/25 at 1932, Routine, Holding - Preprocedure, line care Group 3: Insert peripheral IV (CANCELED) Once, On Sun01/12/25 at 1021, For 1 occurrence, Holding - Preprocedure And Saline lock IV (CANCELED) Once, On Sun01/12/25 at 1021, For 1 occurrence, Holding - Preprocedure And sodium chloride 0.9 % flush 10 mLJump to med 10 mL, Intravenous, Every 12 hours, First dose on Sun01/12/25 at 1115, Until Discontinued, Routine, Holding - Preprocedure And sodium chloride 0.9 % flush 10 mLJump to med 10 mL, Intravenous, As needed, Starting on Sun01/12/25 at 1020, Until Sun01/16/25 at 1932, Routine, Holding - Preprocedure, line care Group 4: Insert peripheral IV (CANCELED) Once, On Sun01/13/25 at 0910, For 1 occurrence, On Unit - Preprocedure And Saline lock IV (CANCELED) Once, On Sun01/13/25 at 0910, For 1 occurrence, On Unit - Preprocedure And sodium chloride 0.9 % flush 10 mLJump to med 10 mL, Intravenous, Every 12 hours, First dose on Sun01/13/25 at 1000, Until Discontinued, Routine, On Unit - Preprocedure And sodium chloride 0.9 % flush 10 mLJump to med 10 mL, Intravenous, As needed, Starting on Sun01/13/25 at 0909, Until Sun01/16/25 at 1932, Routine, On Unit - Preprocedure, line care Group 5: Insert peripheral IV (CANCELED) Once, On Sun01/13/25 at 1516, For 1 occurrence, Holding - Preprocedure And Saline lock IV (CANCELED) Once, On Sun01/13/25 at 1516, For 1 occurrence, Holding - Preprocedure And sodium chloride 0.9 % flush 10 mLJump to med 10 mL, Intravenous, Every 12 hours, First dose on Sun01/13/25 at 1615, Until Discontinued, Routine, Holding - Preprocedure And sodium chloride 0.9 % flush 10 mLJump to med 10 mL, Intravenous, As needed, Starting on Sun01/13/25 at 1515, Until Sun01/16/25 at 1932, Routine, Holding - Preprocedure, line care Group 6: glucose (Glutose) 40 % oral gel 15-30 grams of glucoseJump to med 15-30 grams of glucose, Sublingual, Every 15 min PRN, Starting on Sun01/12/25 at 0617, Until Sun01/16/25 at 1932, Routine, low blood sugar, per Hypoglycemia Prevention and Treatment protocol Or dextrose 10 % (D10W) bolus 125 mLJump to med 125 mL, Intravenous, Every 15 min PRN, Starting on Sun01/12/25 at 0617, Until Sun01/16/25 at 1932, Administer over 15 Minutes, Routine, low blood sugar BG 51-89 mg/dL Or dextrose 10 % (D10W) bolus 250 mLJump to med 250 mL, Intravenous, Every 15 min PRN, Starting on Sun01/12/25 at 0617, Until Sun01/16/25 at 1932, Administer over 15 Minutes, Routine, PRN low blood sugar BG =/<50 mg/dL Or glucagon (human recombinant) injection 1 mgJump to med 1 mg, Intramuscular, Every 15 min PRN, Starting on Sun01/12/25 at 0617, Until Sun01/16/25 at 193, Routine, low blood sugar per Hypoglycemia Prevention and Treatment protocol Group 7: hydrALAZINE (Apresoline) injection 10 mgJump to med 10 mg, Intravenous, Every 1 hour PRN, Starting on 01/03/25 at 1657, Until Sun01/16/25 at 1932, Routine, high blood pressure, SBP>160, Second-line Or hydrALAZINE (Apresoline) injection 20 mgJump to med 20 mg, Intravenous, Every 1 hour PRN, Starting on 01/03/25 at 1657, Until Sun01/16/25 at 1932, Routine, high blood pressure, SBP>160, Second-line Group 8: labetalol (Normodyne,Trandate) injection 10 mgJump to med 10 mg, Intravenous, Every 1 hour PRN, Starting on 01/03/25 at 1504, Until Sun01/16/25 at 1932, Routine, high blood pressure, SBP>160, First-line, HOLD for HR<60 Or labetalol (Normodyne,Trandate) injection 20 mgJump to med 20 mg, Intravenous, Every 1 hour PRN, Starting on 01/03/25 at 1504, Until Sun01/16/25 at 1932, Routine, high blood pressure, SBP>160, First-line, HOLD for HR<60 Group 9: oxyCODONE (Roxicodone) immediate release tablet 5 mgJump to med 5 mg, Oral, Every 4 hours PRN, Starting on Sun01/09/25 at 0926, Until 12/5/25 at 1932, Routine, Moderate/Severe Pain > or =3: CPOT; > or =4: FLACC, PAINAD, NPASS, NRS, White-Frances Faces; > or =5: DVPRS, NIPS Or oxyCODONE (Roxicodone) immediate release tablet 10 mgJump to med 10 mg, Oral, Every 4 hours PRN, Starting on Sun01/09/25 at 0926, Until Sun01/16/25 at 1932, Routine, Moderate/Severe Pain > or =3: CPOT; > or =4: FLACC, PAINAD, NPASS, NRS, White-Frances Faces; > or =5: DVPRS, NIPS documented in this encounter Additional Health Concerns Infection Onset Date Last Indicated Resolved Time COVID-19 Rule-Out 01/02/2025 01/02/2025 01/02/2025 11:10 AM EST Assessment Noted Time PHQ-9 Depression Total Score: 13 025 7:10 AM EST A fall risk assessment has been complete d for the patient 12/30/2024 7:10 AM EST A Body Mass Index follow-up plan has been documented for the patient 01/16/2025 4:11 PM EST documented as of this encounter Care Teams Cafeteria Or Lunchroom Checker Relationship Specialty Start Date End Date Param Eng DO [address] [place] [id number] PCP - General 12/22/24 documented as of this encounter
--- OUTSIDE RECORDS SUMMARY | 2025-01-03 07:00 | XMS_ITS | Encounter Summary ---
Author Organization Healthcare Address [address] [place] [address] Care Team Providers Care Shear Assembler Name Role Phone Param Eng DO Primary Care Provider [phone] Reason for Visit * Auth/Cert (Routine) Specialty Diagnoses / Procedures Referred By Contac t Referred To Contact Diagnoses Decompensation of cirrhosis of liver (CMS/HCC) Satnam Beckford MD [address] [place] [address] Phone: tel: fax: [facility] A Inpatient [address] [place] [address] Phone: tel: Referral ID Status Reason Start Date Expiration Date Visits Re quested Visits Authorized [id number] 1 1 Encounter Details Date Type Department Care Team (Late st Contact Info) Description 01/03/2025 7:00 AM EST - 01/03/2025 4:00 PM EST Surgery [facility] A OPERATING ROOM [address] [place] [address] Satnam Beckford MD [address] [place] [address] TRANSPLANT, LIVER Surgery Details Date/Time Status Location OR Service Patient Class Case Class Case Type Trauma Case? 01/03/2025 7:00 AM Posted SO OR PAVA OR 02 Transplant Surgery Inpatient E1 - Elective (Do not proceed without financial clearance) Panel 1 Procedure LRB Anes Op Region Wound Class Comments TRANSPLANT, LIVER N/A General Class II/ Cl mando Contaminated Surgeon Surgeon Role Service Panel Jude Gillis MD Assisting Transplan t Surgery 1 Negro Cr MD Resident - Assisting 1 Satnam Beckford MD Primary Transplant Surgery 1 documented in this encounter Social History Tobacco [...] or relatives? Twice a week 01/02/2025 Attends Buddhism Services Not on file 01/02 Do you belong to any clubs o r organizations such as scientology groups, unions, fraternal or athletic groups, or [...] housing, medical care, and heating? Hard 01/02/2025 [facility] - Occupational [...] in the past 12 m [facility], were you homeless or living in a long term (including now)? No 01/02/2025 [facility] Utilities Answer Date [...] drink first t edgardo in the morning (EYE-GUIDE EXCURSION) to steady your nerves or to get [...] Sign Reading Time Taken Comments Blood Pressure 132/73 01/03/2025 2:45 PM EST Pulse 74 01/03/2025 4:00 PM EST Temperature 36.9 C (98.4 F) 01/03/2025 4:00 PM EST Respiratory Rate 18 01/03/2025 4:00 PM EST Oxygen Saturation 97% 01/03/2025 4:00 PM EST Inhaled Oxygen Concentration - - Weight 105 kg (232 lb 9.4 oz) 01/02/2025 9:07 AM EST Height 188 cm (6' 2.02 ) 01/02/2025 7:48 PM EST Body Mass Index 27.56 01/02/2025 7:48 PM EST documented in this encounter Functional Status * Question Answer Date of Assessment Author Precautions Environmental surveillance 01/03/2025 4:0 0 PM EST Elyssa Augustin RN * AUDIT-C Score Answer Date of [...] Answer Date of Assessment Author Precautions Environmental surveillance 01/03/2025 4:0 0 PM EST lEyssa Augustin RN * Calculated C-SSRS Risk Score (Lifetime/Recent) Answer Date of Assessment Author No Risk Indicated 01/02/2025 8:00 PM Allison Mix RN * Question Answer Date of Assessment Author 1. Wish to be (Past 1 Month) No 025 8:00 PM Allison Mix RN 2. Non-Specific Active Suici joceline Thoughts (Past 1 Month) No 01/02/2025 8:00 PM EST Garret Rosenbaum RN 6. Suicidal Behavior (Lifetime) No 8:00 PM Allison Mix RN documented as of this encounter Mental Status * Question Answer Entry Date Author Precautions Environmental surveillance 01/03/2025 4:0 0 PM EST Elyssa Augustin RN * Question Answer Entry Date Author Backup Resp Rate (Set) 16 01/03/2025 3:01 PM Blaine Sinha documented in this encounter Discharge Instructions * [...] Take immunosuppression as orderd, including steroid taper. {TXPimmunomeds:52340} Nutrition: - Please drink your boost shakes [...] any ointments or creams at this time. {txpincisionclosure:62583} Bring to your clinic appointments: - please [...] your RN Coordinator, the emergency number is [phone]. This is an answering service, you will ask to speak to the on- call liver surgery scheduling coordinator . - Call for fever of [...] Appointments please call our Transplant Surgery Clinic [phone]. If there are questions or concerns after discharge from the hospital after hours, weekends, and holidays please call [phone] to reach the RN Coordinator impression printer documented in this encounter Medications at Time [...] 2 01/06/2025 ergocalciferol (Vitamin D-2) 1.25 MG (10574 UT) capsule Take 1 capsule by mouth 1 time per week. Fridays 4 capsule 1 01/16/2025 escitalopram (Lexapro) 10 MG tablet Take 1 tablet by mouth daily. 30 tablet 3 12/30/2024 fluconazole (Diflucan) 200 MG tabletIndications :Liver replaced by transplant Take 1 tablet by mouth daily for 17 days. 17 tablet 01/16/2025 methocarbamol (Robaxin) 500 MG tablet Take [...] Note Orly White 45 y.o. male CSN: [id number] Room/Bed 213/213A Nutrition evaluation type: follow-up Reason [...] drinking Boost between meals. Boost Rx to [facility] for outpatient use. w/ questions from [...] (Calculated): 27.56 Weight Evaluation: Overweight (BMI 25-29.9) Goodridge Body Weight (kg): 86.4 Percent Goodridge Body Weight: 112 Adjusted Body Weight (kg): [...] oz) Estimated Needs: Kcal/ K-35 Kcal Provided: 3932-9705 Kcal Needs Based On: Current weight Gm [...] Education Provided: Yes (Post-transplant) Pertinent home medications: Buddhism needs: Nutrition Focused Physical Exam: Physical exam [...] Note Orly White 45 y.o. male CSN: [id number] Admission: 01/02/2025 9:05 AM Primary Problem: Decompensation of cirrhosis of liver (CMS/HCC) Primary Perl Software Engineer: Assistance Available at Discharge: Current Outpatient/Agency/Support Group: clinic(s) Availability of Care Givers (#Hours): 24 hours Family/Perl Software Engineer(s) Willingness Assessed to care for patient at home: Yes Family/Perl Software Engineer(s) Readiness Assessed to care for patient at [...] TBD [facility] 2 PAV S Endoscopy [phone] [facility] [address] PT/OT recs: home with 24-hour assistance, outpatient [...] patient: Lower blood pressure ergocalciferol 1.25 MG (01047 UT) capsule Take 1 capsule by mouth [...] Medications: Will plan for patient to utilize [facility] to obtain discharge medications at time of discharge from [facility]. Prescriptions to be provided by [facility] providers. The transplant team will assist with [...] Mobility Exam: Supine to Sit Level of Waldo: Stand-by assist Physical/Nonphysical Assist: Verbal Cues Bed Mobility Exam: Sit to Supine Level of Waldo: Stand-by assist Physical/Nonphysical Assist: Verbal Cues Transfers Transfer Exam: Sit to stand Level of Waldo: Independent Transfer Exam: Stand to Sit Level of Waldo: Independent Ambulation Device: Rolling walker Assistance: Standby [...] Load: No Diplopia: No Falls: No Objective PACKAGE LINE OPERATOR Screen Cervical Spine ROM: not limited Smooth Pursuit: intact Saccades: intact Spontaneous Nystagmus: No Gaze-Evoked Nystagmus: No Vestibular Occular Reflex Testing VOR Slow: intact Head Thrust: negative bilaterally Gaze Stability: intact Convergence/divergence (near point convergence): intact Positional Testing Left Valyermo-Hallpike: negative with no provocation of symptoms or [...] depression, anxiety, GERD, and HTN whopresents to [facility] on 01/02 for liver transplant. Hospital [...] weeks. Medication access: patient has coverage through [employer] and Medicaid, prefers to use Medicaid to get allmeds through ; [facility]. Biliary reconstruction: vyxi-ez-[id number] Stent: Yes Induction Immunosuppression: Methylprednisolone 250 mg [...] patient: Lower blood pressure ergocalciferol 1.25 MG (64568 UT) capsule Take 1 capsule by mouth [...] Prednisone 60 mg daily followed by taper termite helper antibiotics: Yes, Levaquin x1 week for cholangitis [...] anxiety, GERD, and HTN who presented to [facility] on 01/02 for orthotopic liver transplant [...] Department Center 01/16/2025 6:45 AM TRANSPLANT LAB [facility] 01/16/2025 8:00 AM Nokdplorwe-Xnexl-Wqzhwzs-[place] [facility] 03/06/2025 To Be Determined [facility] ENDO 2 [...] signs, if he does drop, recommend tubi journeyman millwright prior to OOB. If orthostatic vitals signs are okay, consider vestibular evaluation with therapy prior to discharge *have reached out to therapists regarding recommendations Thank you for allowing us to participate in the care of your patient. We will continue to follow. Please page [phone] with any questions, or resident on-call if [...] Note Orly White 45 y.o. male CSN: [id number] Admission: 01/02/2025 9:05 AM Primary Problem: Decompensation [...] Phone Address 01/16/2025 6:45 AM TRANSPLANT LAB [facility] Arrive at: Transplant Center [phone] [facility] [address] 01/16/2025 8:00 AM Zysxdzbnlq-Akclh-Uopcmtl-[place] [facility] Arrive at: Transplant Center [phone] [facility] [address] 03/06/2025 TBD [facility] END[facility] 2 P[facility] S Endoscopy [phone] [facility] [address] PT/OT recs: home with 24-hour assistance, outpatient PT/OT, rolling walker Pt reports he will have the assistance of his spouse at home PT to be provided with a script for outpatient PT/OT on day of discharge. Referral for rolling walker sent to [facility], walker delivered to bedside. Transportation: Pt states [...] in placeto stay at: patient's home in [place]. Transportation to follow-up appointments will be provided by: . Financial Status: Reported household income estimated at below 300% [employer]. Monthly income about $750. Patient reports he has been awarded SSDI, however, final amounts and when first check will arrive is undetermined. Financial concerns noted regarding: transportation. [facility] has approved $100 gas card for transportation.Will [...] patient once it arrives. Laura Muñiz LCSW, [facility] Transplant Transportation Officer Liver team * Consults - Yari Reilly RD - 01/15/2025 10:33 AM EST Adult Nutrition Evaluation Note Orly White 45 y.o. male CSN: [id number] Room/Bed 213/213A Nutrition evaluation type: follow-up Reason [...] drinking Boost between meals. Boost Rx to [facility] for outpatient use. w/ questions from [...] Scale Score: 15 Rosendo Scale Score: 20 Danyel/Raymondbin Pressure Risk Score: 42 Most Recent BM [...] (Calculated): 27.11 Weight Evaluation: Overweight (BMI 25-29.9) Goodridge Body Weight (kg): 86.4 Percent [place]ridge Body Weight: 112 Adjusted Body Weight (kg): [...] oz) Estimated Needs: Kcal/ K-35 Kcal Provided: 9043-5229 Kcal Needs Based On: Current weight Gm [...] Education Provided: Yes (Post-transplant) Pertinent home medications: Buddhism needs: Nutrition Focused Physical Exam: Physical exam [...] anxiety, GERD, and HTN who presents to [facility] on 01/02 for possible liver transplant. [...] results found for: BDVEN , BEVEN , WRZ5QMC , HME9OWP , PHVEN , PO2VEN , E0YYGSTZ , WLE1GBDQHMV , PHVENTEMP Lactate: Lactate, Arterial, Whole Blood [...] anxiety, GERD, and HTN who presents to [facility] on 01/02 for possible liver transplant. Now s/p liver transplant on 01/03. Extubated post-op 01/03 to [place], now on RA. HDS off pressors. Abdominal [...] Edited by: Velasquez Campos MD at 01/15/2025 0810 Velasquez Campos MD PGY-1 General Surgery 01/15/2025 [...] Review Outcome: Ongoing, Progressing Flowsheets (Taken 01/14/2025 174 by Bree Mcfarland, RN) Progress: improving Outcome [...] Intervention: Optimize Skin Protection Flowsheets Taken 01/14/2025 1952 Pressure Reduction Techniques: heels elevated off bed Pressure Reduction Devices: chair cushion utilized Taken 01/14/2025 1800 Activity Management: activity adjusted per tolerance Head of Bed (HOB) Positioning: HOB elevated Problem: Infection Goal: Absence of Infection Signs and Symptoms Outcome: Ongoing, Progressing * Progress Notes - Mariela Kwon RN - 01/14/2025 3:07 PM EST Referral to [facility] for RW for home use. PT/OT recs changed from acute rehab to HWA and OP PT. * Progress Notes - Velasquez Campos MD - 01/14/2025 10:16 AM EST Abdominal Transplant Surgery Progress Note Events of past 24 hours: Orly White is a 44yo male with a PMH of decompensated alcohol related cirrhosis, ascites, HE, SBP, depression, anxiety, GERD, and HTN who presents to [facility] on 01/02 for possible liver transplant. [...] results found for: BDVEN , BEVEN , OIL3YNO , LOJ5JWB , PHVEN , PO2VEN , C0VHOEBT , YOI3KDGYLGI , PHVENTEMP Lactate: Lactate, Arterial, Whole Blood [...] anxiety, GERD, and HTN who presents to [facility] on 01/02 for possible liver transplant. Now s/p liver transplant on 01/03. Extubated post-op 01/03 to [place], now on RA. HDS off pressors. Abdominal exam is stable. Tbili has been increasing significantly, US Liver unremarkable with patent flow, MRCP consistent with biliary stricture. NINA improving. We will continue ursodiol and zosyn. ERCP, no stricture, stent placed. T bili 8.9 (11) after solumedrol. IR biopsy performed yesterday with tavera path, will follow up to determine next [...] been discussed with the patient and/or their security systems sales representative. All questions answered and they agree [...] Félix Simmons APRN, DNP 5,000 Units at 01/08/25 205 hydrALAZINE (Apresoline) injection 10 mg 10 mg [...] walker Additional Comments Patient had been to [facility] in September, and was still receiving outpatient PT. PRIOR LEVEL OF FUNCTION Receives help from Spouse Level of Mobility Ambulatory- household only Mobility Waldo Independent gait without device History of Falls [...] Bed <> Chair since last PT treatment. Director Of Strategic Sales (if applicable) Director Of Strategic Sales: Not Applicable OBJECTIVE & INTERVENTIONS PAIN Pt [...] chair 1-3x daily and ambulate hallway with supervisor abattoir as able, if able. THERAPEUTIC ACTIVITY Treatment Minutes 15 BED MOBILITY Level of Waldo Physical/Non- physical Assist Adaptive Equipment Utilized Rolling/ Turning Scooting/ Bridging Supine to Sit Sit to Supine Interventions pt recieved and left sitting upright in bedside chair TRANSFERS Level of Waldo Physical/Non- physical Assist Adaptive Equipment Utilized Sit [...] Posture: Rounded shoulders, Forward head Level of Waldo Balance Support Interventions Static Sit Supervision Feet [...] to ensure safety. -pt demonstrated ability to order picker/assembler 5 inch item from ground level via squat technique and performing right and left 360 degree turns with CGA. Level of Waldo Distance Adaptive Equipment Utilized Gait Moderate verbal cues, Moderate tactile cues, Additional assist for line management (3x Vicenet for mild LOB's during ambulation/DGI components without [...] of HEP provided. Access Code: [email or web address] URL: [email or web address] Date: 01/13/2025 Prepared by: Diego West Exercises [...] 3 sets - 10 reps Standardized Assessments [facility] 6-Clicks Mobility Assessment Difficulty patient has [...] 3-5 steps with a railing?: A little [facility] 6-Clicks Mobility Assessment Total : 18 [...] Time Frame: 2 weeks Written by Diego Wets on 01/13/25 at 1:16 PM. * Progress Notes - Saniya Bond, TITA - 01/13/2025 12:10 PM EST Physical Medicine & Rehabilitation Inpatient Consult Followup cc: Decompensation of cirrhosis of liver (CMS/HCC) Subjective: Patient seen and examined. Family at bedside including Discussed ambulation as was increasingy difficult with edema and scrotal swelling which has improved. Discussed readiness for rehab Patient denies any specific concerns or complaints. able to assist at discharge, planning to go back to [facility] when ready Patient and family would like to go to [facility] when ready Therapy notes reviewed: Bed [...] precautions: No other precautions required ASSESSMENT/PLAN: Orly Monteroosbaldo is a 44 y.o. male w/PMH of [...] We will continue to follow. Please page [phone] with any questions, or resident on-call if [...] Where Assessed: Chair Level Feeding Interventions: pt chris's functional strength and dexterity needed for food tray set up and self feeding routine completion from tray table, intermittent tremulous motor patterns noted throughout intentional grasping and manipulation of items involving both fine and gross motor movement Grooming Grooming Level of Assistance: Setup, Contact guard Grooming Where Assessed: Standing sinkside Grooming Interventions: pt chris's functional strength, endurance/activity tolerance, and balance needed [...] Transfer Exam: Sit to stand Level of Waldo: (SBA with RW, CGA without AD) Physical/Nonphysical Assist: Verbal Cues, Nonverbal cues (demo/gestures), 1 person + 1 person to manage equipment Assistive Device: (trials with and without RW) Transfer Exam: Stand to Sit Level of Waldo: (SBA with RW, CGA without AD) Physical/Nonphysical [...] initially, progresses to CGA using no AD/no ARMATURE REPAIRER Apparatus: Chair follow Assistance: Contact guard assist, pt requires CGA for head positional changes, functional reaching,weight shifting outside base of support, and directional changes throughout ambulation ~household simulated distances, seated rest breaks provided throughout balance training activities Therapeutic Exercise (11 minutes) 1# weights provided for use with the following ariel UE strengthening HEP issued this date, Ka[employer] TechnologiesAccess Code: [email or web address] URL: [email or web address] Exercises include- Single Arm Shoulder Flexion with [...] post- transplant psychosocial needs Laura Muñiz LCSW, [facility] Transplant Transportation Officer Liver team * Progress Notes - Gretel [...] anxiety, GERD, and HTN who presents to [facility] on 01/02 for possible liver transplant. [...] Gastroenterology and Nutrition PGY-6 GI Fellow Pager: [phone] Prefer Epic Chat [1] amLODIPine, 5 mg, [...] anxiety, GERD, and HTN who presents to [facility] on 01/02 for possible liver transplant. 01/03: OLT Interval: POD10. NAEON. MRCP with evidence of biliary stricture. Liver U/S ok. VSS. Hgb and WBC S. Cr mildy uptrending. LFT stable, but Tbili increase 11 from 10.4. Edited by: Estee Rosales at 01/13/2025 0824 Review of Systems: 14-point ROS negative [...] results found for: BDVEN , BEVEN , HKS7EJI , QRE7ONC , PHVEN , PO2VEN , D4SNZTDI , KDS5GDEOJES , PHVENTEMP Lactate: Lactate, Arterial, Whole Blood [...] anxiety, GERD, and HTN who presents to [facility] on 01/02 for possible liver transplant. Now s/p liver transplant on 01/03. Extubated post-op 01/03 to [place], now on RA. HDS off pressors. Abdominal [...] anxiety, GERD, and HTN, who presented to [facility] on 01/02 for liver transplant. He [...] is no recent study available for direct itdh-hz-mcmc comparison. Assessment & Plan: Decompensated alcohol related [...] the care of this patient. Vanda Maguire, DEHYDRATOR TENDER, DNP Interventional Radiology [phone] [1] Past Medical History: Diagnosis Date Anxiety [...] Soto APRN, PATTI, 5 mg at 01/12/25 08 aspirin chewable tablet 81 mg, 81 mg, [...] Simmons APRN, DNP, 10 mg at 01/12/25 08 ferrous sulfate EC tablet 324 mg, 324 mg, Oral, Daily with breakfast, Félix Simmons APRN, DNP, 324 mg at 01/12/25 0851 fluconazole (Diflucan) tablet 200 mg, 200 mg, Oral, Daily, Maciel Olson MD, 200 mg at 01/12/25 0852 [Held by provider] heparin (porcine) injection 5,000 Units, 5,000 Units, Subcutaneous, BID, Félix Simmons APRN, PATTI, 5,000 Units at 01/08/252055 hydrALAZINE (Apresoline) injection [...] BID, Yari Quesada MD, 500 mg at 01/12/25 2018 ondansetron (Zofran) injection 4 mg, 4 mg, [...] 10 mL, Intravenous, q12h, 10 mL at 01/12/252258 AND sodium chloride 0.9 % flush 10 mL, 10 mL, Intravenous, PRN, Da De MD Insert peripheral IV, , , Once AND Saline lock IV, , , Once AND sodium chloride 0.9 % flush10 mL, 10 mL, Intravenous, q12h, 10 mL at 01/12/252258 AND sodium chloride 0.9 % flush 10 [...] Treatment Patient Name: Orly White Today's Date: 2025 PT Discharge Recommendations: Acute rehab Equipment Recommended: Defer to facility Subjective Patient agreeable to PT treatment. Participants in Care Family/Caregiver Present: Yes Family/Caregiver: Spouse Director Of Strategic Sales: Not Applicable Presentation Oxygen Therapy: None (Room [...] bed. Bed Mobility Exam: Rolling/Turning Level of Waldo: Minimum assist (75% patient effort) Physical/Nonphysical Assist: Verbal Cues, Minimal cues Assistive Device: Bed rails Bed Mobility Exam: Scooting/Bridging Level of Waldo: Contact guard (seated scoot to edge of bed) Physical/Nonphysical Assist: Verbal Cues, Minimal cues, Set-up required Assistive Device: Bed rails Bed Mobility Exam: Supine to Sit Level of Waldo: Minimum assist (75% patient's effort) Physical/Nonphysical Assist: Verbal Cues, Set-up required, Maximal cues, Nonverbal cues (demo/gestures), HOB elevated Assistive Device: Bed rails Bed Mobility Exam: Sit to Supine Level of Waldo: (Not assessed. Patient left up in chair.) Transfers Transfer Interventions: PT provided maximal verbal cues for safe hand placement on RW and sitting surface, pushing up to stand and reaching back to sit, to ensure safe transition. Physical assist provided for balance. Transfer Exam: Sit to stand Level of Waldo: Contact guard Physical/Nonphysical Assist: Verbal Cues, Nonverbal cues (demo/gestures), Additional assist utilized for safety Assistive Device: Walker, rolling Transfer Exam: Stand to Sit Level of Waldo: Contact guard Physical/Nonphysical Assist: Verbal Cues, Nonverbal [...] MD - 2025 1:30 PM EST Patient: Oryl White Anesthesia Type: general Vitals Value Taken [...] and nonlabored ventilation * Progress Notes - Mariela Kwon RN - 2025 12:47 PM EST reworker attended table rounds with MD Beckford and members of Txp team this AM. Plan for ERCP today. Pt not medically cleared for hospital discharge this date. Pt has been referred to [facility] and PM and R is following. [...] Orly White Date of : 1980 Room: [address] [place] [address] Reason for consultation: Liver transplant pt with biliary stricture on MRCP Subjective: History of present illness: Mr. Orly White is a 44 y.o. year old male with a PMH of decompensated alcohol related cirrhosis s/p OLT, ascites, HE, SBP, depression, anxiety, GERD, and HTN who presents to [facility] on 01/02 for possible liver transplant. [...] anxiety, GERD, and HTN who presents to [facility] on 01/02 for possible liver transplant. [...] Owen, Gastroenterology and Hepatology, PGY-4 Healthcare Pager: [phone] [1] Past Medical History: Diagnosis Date Anxiety [...] 5 mg, 5 mg, Oral, Daily, Camilla Soto, DEHYDRATOR TENDER, DNP, 5 mg at 01/11/25 0826 bisacodyl [...] 10 mg, Oral, Daily, Félix Simmons APRN, APTTI, 10 mg at 01/11/25825 ferrous sulfate EC tablet 324 mg, 324 mg, Oral, Daily with breakfast, Félix Simmons APRN, DNP, 324 mg at 01/11/25825 fluconazole (Diflucan) tablet 200 mg, 200 mg, Oral, Daily, Maciel Olson MD, 200 mg at 01/11/25825 [Held by provider] heparin (porcine) injection 5,000 Units, 5,000 Units, Subcutaneous, BID, Félix Simmons APRN, PATTI, 5,000 Units at 01/08/252055 hydrALAZINE (Apresoline) injection [...] Camilla Soto APRN, PATTI, 40 mg at 01/11/25825 piperacillin-tazobactam (Zosyn) 4.5 g in sodium chloride 0.9% 100 mL IVPB (vial adapter required), 4.5 g, Intravenous, q6h, Negro Cr MD, Last Rate: 36.7 mL/hr at 01/11/251844, 4.5 g at 01/11/251844 polyethylene glycol (Miralax) packet 17 g, 17 g, Oral, Daily, Tg Morales, DEHYDRATOR TENDER, 17 g at 01/10/25 0927 predniSONE (Deltasone) tablet 5 mg, 5 mg, Oral, Daily with breakfast, Negro Cr MD, 5 mg at 01/11/25 0826 senna-docusate (Lauren-Colace) 8.6-50 MG per tablet 2 tablet, 2 tablet, Oral, BID, Tg Morales, DEHYDRATOR TENDER, 2 tablet at 01/11/25 0826 sodium chloride 0.9 % flush 10 mL, 10 mL, Intravenous, q12h, Camilla Soto, TITA, DNP, 10 mL at 01/11/25 0452 sodium chloride 0.9 % flush 10 mL, 10 mL, Intravenous, q1h PRN, Camilla Soto, DEHYDRATOR TENDER, DNP sodium chloride 0.9 % flush 20 [...] Maciel Olson MD, 450 mg at 01/11/25 08 Cosigned by Parmjit Garcia MD at 2025 7:33 AM EST * Anuj Imelda Burns RN - 2025 10:24 AM EST Images from the original note were not included. [id number] Endoscopy Unit: Caring for Yourself after an [...] will be available in the patient portal, PriceAdvice, or you can call the doctor who [...] the Endoscopy Fellow on-call. LE * Anuj Flor - Imelda Lucas RN - 2025 10:24 AM EST Images from the original note were not included. [id number] Anesthesia: General Anesthesia You?re due to have [...] medicines you take. This includes prescription and mkpc-yfw-pdqlexw medicines. It also includes vitamins, herbs, and [...] safe. Last Reviewed Date: 2023 00:00:00 ?? [id number] The [employer]. All rights reserved. This information is not intended as a substitute for professional medical care. Always follow your healthcare professional's instructions. * Consults - Yari Reilly RD - 2025 10:21 AM EST Adult Nutrition Evaluation Note Orly White 45 y.o. male CSN: [id number] Room/Bed 213/213A Nutrition evaluation type: follow-up Reason [...] (Room air) O2 Delivery Method: Nasal cannula [place] Coma Scale Score: 15 Rosendo Scale Score: [...] (Calculated): 27.27 Weight Evaluation: Overweight (BMI 25-29.9) [place] Body Weight (kg): 86.4 Percent [place] Body Weight: 112 Adjusted Body Weight (kg): [...] oz) Estimated Needs: Kcal/ K-35 Kcal Provided: 4326-2739 Kcal Needs Based On: Current weight Gm [...] Education Provided: Yes (Post-transplant) Pertinent home medications: Buddhism needs: Nutrition Focused Physical Exam: Physical exam [...] anxiety, GERD, and HTN who presents to [facility] on 01/02 for possible liver transplant. 01/03: OLT Interval: POD9. NAEON. MRCP with evidence of biliary stricture. Liver U/S ok. AF, HDS, RA. Hgb and WBC S. Cr stable 1.26. LFT stable, Tbili increase 10.4 (8.5). UOP 1.4 L. Edited by: Velasquez Campos MD at 2025 0895 Review of Systems: 14-point ROS negative except [...] results found for: BDVEN , BEVEN , PUT9IGF , ZLB5BAT , PHVEN , PO2VEN , G6TNCYSO , VSR2XCUEYHM , PHVENTEMP Lactate: Lactate, Arterial, Whole Blood [...] anxiety, GERD, and HTN who presents to [facility] on 01/02 for possible liver transplant. Now s/p liver transplant on 01/03. Extubated [place]op 01/03 to [place], now on RA. HDS off pressors. Abdominal [...] Care Review Outcome: Ongoing, Progressing Flowsheets (Taken 2025 0046) Progress: improving Outcome Evaluation: pt awaits placement [...] Orly White Date of : 1980 Room: [address] [place], [place] [address]A Reason for consultation: Liver transplant pt with biliary stricture on MRCP Subjective: History of present illness: Mr. Orly White is a 44 y.o. year old male with a PMH of decompensated alcohol related cirrhosis s/p OLT, ascites, HE, SBP, depression, anxiety, GERD, and HTN who presents to [facility] on 01/02 for possible liver transplant. [...] anxiety, GERD, and HTN who presents to [facility] on 01/02 for possible liver transplant. [...] Kimberly Owen DO Gastroenterology and Hepatology, PGY-4 [facility] Pager: [phone] [1] Past Medical History: Diagnosis Date Anxiety [...] Camilla Soto APRN, PATTI, 5 mg at 01/11/25825 bisacodyl (Dulcolax) suppository 10 mg, 10 mg, Rectal, Daily, Tg Morales APRN, 10 mg at 01/09/25843 buPROPion SR (Wellbutrin SR) 12 hr tablet 150 mg, 150 mg, Oral, BID, Félix Simmons APRN, PATTI, 150 mg at 01/11/25825 carvedilol (Coreg) tablet 25 mg, 25 mg, Oral, BID, Camilla Soto APRN, DNP, 25 mg at 01/11/25825 ergocalciferol (Vitamin D-2) capsule 50,000 Units, 50,000 Units, Oral, Weekly, Maciel Olson MD, 50,000 Units at 01/09/25843 escitalopram (Lexapro) tablet 10 mg, 10 mg, Oral, Daily, Félix Simmons APRN, PATTI, 10 mg at 01/11/25825 ferrous sulfate EC tablet 324 mg, 324 mg, Oral, Daily with breakfast, Félix Simmons APRN, DNP, 324 mg at 01/11/25825 fluconazole (Diflucan) tablet 200 mg, 200 mg, Oral, Daily, Macile Olson MD, 200 mg at 01/11/25825 [Held [...] Camilla Soto APRN, DNP, 20 mg at 01/07/25 191 methocarbamol (Robaxin) tablet 500 mg, 500 mg, Oral, 4x daily, Cheryl Choi MD, 500 mg at 01/11/251844 mupirocin (Bactroban) 2 % ointment 1 Application, 1 Application, Each Nostril, BID, Damián Simmons MD, 1 Application at 01/11/25 0826 mycophenolate (Cellcept) capsule 500 mg, 500 mg, [...] breakfast, Negro Cr MD, 5 mg at 01/11/25825 senna-docusate [...] Oral, Nightly, Roger Moody, 50 mg at 01/10/252220 ursodiol (Actigall) capsule 300 mg, 300 mg, [...] Care Review Outcome: Ongoing, Progressing Flowsheets (Taken 01/11/2025 1532) Progress: improving Plan of Care Reviewed With: patient spouse Goal: Patient-Specific Goal (Individualized) Outcome: Ongoing, Progressing Flowsheets (Taken 01/11/2025 08) Patient/Family-Specific Goals (Include Timeframe): Pt will remain free of inpatient falls this shift. Individualized Care Needs: Safety Anxieties, Fears or Concerns: denies Goal: Absence of Hospital-Acquired Illness or Injury Outcome: Ongoing, Progressing Intervention: Identify and Manage Fall Risk Flowsheets (Taken 01/11/2025 08) Safety Promotion/Fall Prevention: [...] Intervention: Promote Injury-Free Environment Flowsheets (Taken 01/11/2025 0800) Safety Promotion/Fall Prevention: activity supervised assistive device/personal items within [facility] fall prevention program maintained clutter-free environment maintained [...] anxiety, GERD, and HTN who presents to [facility] on 01/02 for possible liver transplant. [...] results found for: BDVEN , BEVEN , JHW9PFT , CNG3VBC , PHVEN , PO2VEN , Q8VXXOYZ , NAQ9VYNWTFV , PHVENTEMP Lactate: Lactate, Arterial, Whole Blood [...] anxiety, GERD, and HTN who presents to [facility] on 01/02 for possible liver transplant. Now s/p liver transplant on 01/03. Extubated post-[place] 01/03 to [place], now on RA. HDS off pressors. Abdominal [...] Quesada MD Department of Urology, PGY-1 Pager: [phone] [1] amLODIPine, 5 mg, Oral, Daily aspirin, [...] Flowsheets (Taken 01/10/2025 1622 by Rosibel Delvalle, DEMETRIA) Progress: improving Outcome Evaluation: pt and verbalize [...] Progressing Intervention: Optimize Cognitive Function Flowsheets (Taken 01/10/2025 1622) Environment Familiarity/Consistency: daily routine followed Self-Care Promotion: independence encouraged Goal: Optimal Coordination Outcome: Ongoing, Progressing Intervention: Optimize Motor Coordination and Function Flowsheets (Taken 01/10/2025 1622) Self-Care Promotion: independence encouraged Goal: Improved Muscle Strength Outcome: Ongoing, Progressing Intervention: Optimize Muscle Strength Flowsheets (Taken 01/10/2025 162) Activity Assistance Provided: assistance, 1 person Self-Care Promotion: independence encouraged Goal: Improved Muscle Tone Outcome: Ongoing, Progressing Intervention: Optimize Muscle Tone Flowsheets (Taken 01/10/2025 1622) Spasticity Management: positioned with supportive device spastic muscles stretched standing frame utilized triggers managed weight-bearing facilitated Goal: Optimal Range of Motion Outcome: Ongoing, Progressing Intervention: Maintain Functional Joint Range Position Flowsheets (Taken 01/10/2025 1622) Range of Motion: active ROM (range of motion) encouraged Goal: Compensation for Sensory Deficit Outcome: Ongoing, Progressing Intervention: Optimize Sensory Function Flowsheets (Taken 01/10/2025 1622) Skin Protection: incontinence pads utilized Problem: Skin Injury Risk Increased Goal: Skin Health and Integrity Outcome: Ongoing, Progressing Intervention: Optimize Skin Protection Flowsheets Taken 01/10/2025 162 Skin Protection: incontinence pads utilized Taken 01/10/2025 [...] anxiety, GERD, and HTN who presents to [facility] on 01/02 for possible liver transplant. [...] results found for: BDVEN , BEVEN , EWZ4BGT , HIQ1FQE , PHVEN , PO2VEN , D1QUMOYN , JCH7JOHHPVE , PHVENTEMP Lactate: Lactate, Arterial, Whole Blood [...] anxiety, GERD, and HTN who presents to [facility] on 01/02 for possible liver transplant. Now s/p liver transplant on 01/03, recovering well. Extubated post[place] 01[place]03 to [place]. HDS off pressors.Hasn't required blood products for [...] Edited by: Yari Quesada MD at 01/10/2025 0194 Yari Quesada MD Department of Urology, PGY-1 Pager: [phone] [1] amLODIPine, 5 mg, Oral, Daily aspirin, [...] Note Orly White 44 y.o. male CSN: [id number] Admission: 01/02/2025 9:05 AM Primary Problem: Decompensation of cirrhosis of liver (CMS/HCC) SW requested to follow up with [facility] on referral for acute rehab. Per [facility] liaison, Pt [place] be coming under [place] and auth has not been started with [place] yet. SW completed [place] RFS form and sent [phone]. Also sent email to [facility] notifing referral sent. Handoff provided to primary cm to follow up on Sunday. Vanda Radford COLLABORATIVE TEACHER, WIG DRESSER Case Management * Progress Notes - Cheryl Choi MD - 01/09/2025 8:32 AM EST Abdominal Transplant Surgery Progress Note Events of past 24 hours: Orly White is a 44yo male with a PMH of decompensated alcohol related cirrhosis, ascites, HE, SBP, depression, anxiety, GERD, and HTN who presents to [facility] on 01/02 for possible liver transplant. 01/03: OLT Interval: POD6. NAEON. SBP 150-160, AF, HDS, RA. UOP 7.1L (3.7L). BM 2x charted. Hgb and WBC S. Cr 1.67 (1.82). LFT increased slightly. Tbili stable. Edited by: Cheryl Choi MD at 01/09/2025 0855 Review of Systems: 14-point ROS negative except [...] results found for: BDVEN , BEVEN , XVP3FXP , WZS4NOQ , PHVEN , PO2VEN , W9JXMPJV , ADD2OBXDNLE , PHVENTEMP Lactate: Lactate, Arterial, Whole Blood [...] anxiety, GERD, and HTN who presents to [facility] on 01/02 for possible liver transplant. Now s/p liver transplant on 01/03, recovering well. [place] to [place]. HDS off pressors.Hasn't required blood products for [...] Abdominal Transplant Surgery * Care Plan - Dalyin Mckeon RN - 01/09/2025 6:28 AM EST [...] walker Additional Comments Patient had been to [facility] in September, and was still receiving outpatient PT. PRIOR LEVEL OF FUNCTION Receives help from Spouse Level of Mobility Ambulatory- household only Mobility Waldo Independent gait without device History of Falls [...] unaware when pt may be discharged from [facility]. Director Of Strategic Sales (if applicable) Director Of Strategic Sales: Not Applicable OBJECTIVE & INTERVENTIONS PAIN Pain [...] sedentary status. Pt participatedin bed mobility, supine-sit, gfp-mghip-ifv and toilet transfers. They were able to [...] appropriate activity pacing. BED MOBILITY Level of Waldo Physical/Non- physical Assist Adaptive Equipment Utilized Rolling/ Turning Minimum assist (75% patient effort) Verbal Cues, Additional assist utilized for safety, Minimal cues Bed rail Scooting/ Bridging Contact guard Verbal Cues, Minimal cues, Additional assist utilized for safety Supine to Sit Moderate assist (50% patient's effort) Verbal Cues, Nonverbal cues (demo/gestures), Moderate cues, Additional assist utilized for safety Bed rail TRANSFERS Level of Waldo Physical/Non- physical Assist Adaptive Equipment Utilized Sit to Stand Minimum assist (75% patient's effort) Verbal Cues, Nonverbal cues (demo/gestures), Additional assist utilized for safety Walker, rolling Stand to sit Minimum assist (75% patient's effort) Verbal Cues, Nonverbal cues (demo/gestures) Walker, rolling Toilet Transfer Ambulation, To toilet BALANCE Postural Appearance Posture: Rounded shoulders, Forward head Level of Waldo Balance Support Facilitated Activities Static Sit Standby [...] shifts, Reaching for objects AMBULATION Level of Waldo Distance Adaptive Equipment Utilized Ambulation Minimum assistance [...] review the written HEP and ask questions. [email or web address] Access Code: [email or web address] Standardized Assessments [facility] 6-Clicks Mobility Assessment Difficulty patient has [...] 3-5 steps with a railing?: A lot [facility] 6-Clicks Mobility Assessment Total : 16 [...] Care Family/Caregiver Present: Yes Family/Caregiver: Spouse, Mother Director Of Strategic Sales: Not Applicable Presentation Oxygen Therapy: None (Room [...] transition. Bed Mobility Exam: Rolling/Turning Level of Waldo: Minimum assist (75% patient effort) Physical/Nonphysical Assist: Verbal Cues, Additional assist utilized for safety, Minimal cues Assistive Device: Bed rails Bed Mobility Exam: Scooting/Bridging Level of Waldo: Contact guard Physical/Nonphysical Assist: Verbal Cues, Minimal cues, Additional assist utilized for safety Assistive Device: Bed rails Bed Mobility Exam: Supine to Sit Level of Waldo: Moderate assist (50% patient's effort) Physical/Nonphysical Assist: Verbal Cues, Nonverbal cues (demo/gestures), Moderate cues, Additionalassist utilized for safety Assistive Device: Bed rails Transfers See Self-Care section for details on OT transfer interventions. Transfer Exam: Sit to stand Level of Waldo: Minimum assist (75% patient's effort) Physical/Nonphysical Assist: Verbal Cues, Nonverbal cues (demo/gestures), Additional assist utilized for safety Assistive Device: Walker, rolling Transfer Exam: Stand to Sit Level of Waldo: Minimum assist (75% patient's effort) Physical/Nonphysical Assist: Verbal Cues, Nonverbal cues (demo/gestures) Assistive Device: Walker, rolling Toilet Transfer Level of Waldo: Minimum assist (75% patient's effort) Physical/Nonphysical Assist: [...] appropriately replicated. OT developed pt a personalized CodefiedbrAsthmatx HEP to support personal causation and consistency with daily strengthening program. HEP also reviewed with caregiver. Access Code: [email or web address] Exercises - Seated Shoulder Horizontal Abduction with [...] anxiety, GERD, and HTN who presents to [facility] on 01/02 for possible liver transplant. [...] results found for: BDVEN , BEVEN , XSK7OVO , OKZ7VVR , PHVEN , PO2VEN , Y1SQRLKS , XIC8GTJILGW , PHVENTEMP Lactate: Lactate, Arterial, Whole Blood [...] anxiety, GERD, and HTN who presents to [facility] on 01/02 for possible liver transplant. Now s/p liver transplant on 01/03, recovering well. Extub[place] to [place]. HDS off pressors.Hasn't required blood products for [...] 11:32 AM EST Associated attestation - Jude Gilils MD - 01/11/2025 11:32 AM EST I [...] Intervention: Promote Injury-Free Environment Flowsheets (Taken 01/08/2025 032) Safety Promotion/Fall Prevention: [...] AlisonrMariela RN - 01/07/2025 2:14 PM EST reworker attended table rounds with MD Olson and [...] Note Orly White 44 y.o. male CSN: [id number] Room/Bed 213/213A Nutrition evaluation type: follow-up Reason [...] 30.81 Weight Evaluation: Obese-Class 1 (BMI 30-34.9) [place] Body Weight (kg): 86.4 Percent [place] Body Weight: 126 Adjusted Body Weight (kg): [...] oz) Estimated Needs: Kcal/ K-35 Kcal Provided: 2257-2288 Kcal Needs Based On: Adjusted weight Gm [...] Education Provided: Yes (Post-transplant) Pertinent home medications: Buddhism needs: Nutrition Focused Physical Exam: Physical exam [...] anxiety, GERD, and HTN who presents to [facility] on 01/02 for possible liver transplant. [...] 1859 01/05/25 1900 - 01/06/25 0659 01/06/25 07 - 01/06/25 1859 01/06/25 1900 - 01/07/25 [...] results found for: BDVEN , BEVEN , XFL1IVD , OAF3QGJ , PHVEN , PO2VEN , U3AJLDYW , IIA3QSDZWUR , PHVENTEMP Lactate: Lactate, Arterial, Whole Blood [...] anxiety, GERD, and HTN who presents to [facility] on 01/02 for possible liver transplant. Now s/p liver transplant on 01/03, recovering well. Ext[place] to [place]. HDS off pressors.Hasn't required blood products for [...] Félix Simmons APRN, PATTI, 10 mg at 01/07/25 0812 fentaNYL (Sublimaze) [...] - Standard Dose, 0-5 Units, Subcutaneous, q6h [facility], Negro Cr MD labetalol (Normodyne,Trandate) injection 10 [...] of care without further critical care needs. [facility] will sign off. Thank you for allowing [...] has acute rehab rec's and agreeable to [facility]. reports she will be staying with patient. She had received a parking ticket for parking in a visitor spot and had been unable to get it voided. JHON spoke with [employer] and provided patient's name and anticipated duration [...] card assistance on discharge. Laura Muñiz LCSW, [facility] Transplant Transportation Officer Liver team * Progress Notes - Yari Quesada MD - 01/06/2025 8:30 AM EST Abdominal Transplant Surgery Progress Note Events of past 24 hours: Orly White is a 44yo male with a PMH of decompensated alcohol related cirrhosis, ascites, HE, SBP, depression, anxiety, GERD, and HTN who presents to [facility] on 01/02 for possible liver transplant. [...] 01/05/25 1859 01/05/25 1900 - 01/06/25 0659 11/25/25 0700 - 01/06/25 0832 Closed/Suction Drain 1 [...] anxiety, GERD, and HTN who presents to [facility] on 01/02 for possible liver transplant. Now s/p liver transplant on 01/03, recovering well. Extub[place] to [place]. HDS off pressors.Hasn't required blood products for [...] Quesada MD Department of Urology, PGY-1 Pager: [phone] [1] amLODIPine, 5 mg, Oral, Daily buPROPion [...] tablet 150 mg, 150 mg, Oral, BID, Félxi Simmons APRN, PATTI, 150 mg at 01/06/25 08 carvedilol (Coreg) tablet 25 mg, 25 mg, Oral, BID, Camilla Soto APRN, DNP, 25 mg at 01/06/25 08 escitalopram (Lexapro) tablet 10 mg, 10 mg, Oral, Daily, Félix Simmons APRN, PATTI, 10 mg at 01/06/25 0812 fentaNYL (Sublimaze) injection 25 mcg, 25 mcg, Intravenous, q2h PRN, 25 mcg at 01/05/25 0913 ORfentaNYL (Sublimaze) injection 50 mcg, 50 mcg, Intravenous, q2h PRN, Camilla Soto APRN, PATTI, 50 mcg at 01/05/25 0354 ferrous sulfate EC tablet 324 mg, 324 mg, Oral, Daily with breakfast, Félix Simmons APRN, DNP, 324 mg at 01/06/25 0812 [START ON [...] - Standard Dose, 0-5 Units, Subcutaneous, q6h Tayo GRAJEDA Osvaldo, MD labetalol (Normodyne,Trandate) injection 10 mg, 10 mg, Intravenous, q1h PRN, 10 mg at 01/04/252008OR labetalol (Normodyne,Trandate) injection 20 mg, 20 mg, Intravenous, q1h PRN, Camilla Soto APRN, PATTI, 20 mg at 01/05/25 1010 methocarbamol (Robaxin) [...] mL IVPB, 1,000 mg, Intravenous, BID, Maciel Oslon MD, Last Rate: 152.5 mL/hr at 01/05/252018, [...] [place] [address] / [place] [address] Payor: [facility] / Plan: [place] [employer] / Product Type: *No Product type* [...] Children: denies Previous Residence: lives with in [place], [place] in a 1 story house with a basement with 3 steps to enter Anticipated Residence: as above Support: family Tobacco: quit chewing tobacco 6 weeks ago Alcohol: 1/5 of bourbon a day for the last year Drugs: denies Travel: denies international travel in the last 6 months 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 Education: some college Hobbies: being with family DME used prior to rehab: was using his grandmothers walker Driving: was driving prior Patient/Family goals: To get stronger and be home by [place] Functional History: Premorbid: Independent with ambulation for [...] Value Units Date/Time Multi Drug Resistance Test [[id number]] Collected: 01/03/251608 Order Status: Completed Specimen: Swab from Nares and Lauren Rectal Updated: 01/05/25 0536 Culture No growth at day 1 Narrative: This test was developed and its performance characteristics determined by the [facility]. Although the media is FDA-approved, it is not FDA-approved for all specimen types submitted. The FDA has determined that such clearance or approval is not necessary. This test is used for surveillance purposes. It should not be regarded as investigational or for research. The [facility] is certified under the ClinicalLaboratory Improvement Amendments of 1988 (CLIA-88) as qualified to perform high complexity clinical laboratory testing. Tylor auris Surveillance by PCR [[id number]] (Normal) Collected: 01/03/25 1609 Order Status: Completed Specimen: Swab from Axilla and Groin Updated: 01/04/25 1152 Tylor auris PCR Result Not Detected Narrative: This PCR assay was developed and its performance characteristics determined by [facility] as appropriate for clinical purposes. [...] Abnormal Ventricular Rate 66 Atrial Rate 66 MT Interval 178 QRSD Interval 88 QT Interval 474 QTC Interval 496 P [place] 45 R [place] 29 T Wave [place] 19 Diagnosis Normal sinus rhythm Diagnosis QTcB [...] kg from bed weight due to bed hydramatic specialist SpO2 97% BMI 31.60 kg/m?? Gen: NAD, [...] We will continue to follow. Please page [phone] with any questions, or resident on-call if after hours or on weekends. Camilla Mendez, DEHYDRATOR TENDER Physical Medicine & Rehabilitation [1] Past Medical [...] Kwon RN - 01/05/2025 12:39 PM EST reworker rounded with MD Olson and members of Txp team this AM. Pt in bed, alert and interactive. Oxygen per nasal cannula at time of visit. Concern for transfusion over past 24 hrs. Team will follow H and H closely. Per pt drains less bloody this AM. Discussion concerning HTN. Meds to be adjusted if needed. PT/OT recommending acute rehab. Referral to [facility]. PM and R aware of need [...] Right Radial 01/03/25 0810 Radial 2 GCS: [place] Coma Scale Score: 15 Review of Systems [...] post- transplant psychosocial needs Laura Muñiz LCSW, [facility] Transplant Transportation Officer Liver team * Progress Notes - Armida [...] the practitioner. PATIENT DATA Patient Name Orly White Session Date 01/05/2025 Total Time 44 minutes [...] engaged throughout session. Visitors Present Spouse, Mother Director Of Strategic Sales (if applicable) PRESENTATION Oxygen Supplemental oxygen Nasal [...] walker Additional Comments Patient had been to [facility] in September, and was still receiving outpatient PT. PRIOR LEVEL OF FUNCTION Receives help from Spouse Level of Mobility Ambulatory- household only Mobility Waldo Independent gait without device History of Falls [...] needed areas of treatment space Level of Waldo Interventions: Grooming Minimum assistance Chair level Simulated [...] toileting intervention was completed using a simulated pgu-du-qjnjdpv-commode transfer.The patient required MIN physical assistance for [...] of bilateral hands. BED MOBILITY Level of Waldo Physical/Non- physical Assist Adaptive Equipment Utilized Rolling/ [...] Bed rails, Other (drawsheet) TRANSFERS Level of Waldo Physical/Non- physical Assist Adaptive Equipment Utilized Sit [...] Appearance Posture: Within Functional Limits Level of Waldo Balance Support Interventions Static Sit Contact guard [...] Lateral weight shifts FUNCTIONAL ENDURANCE Level of Waldo Distance Adaptive Equipment Utilized Functional Mobility Minimum assistance, Minimal verbal cues, Additional assist needed for line management, Chair follow, Additional assist utilized for safety 10ft Rolling walker Chair follow STANDARDIZED ASSESSMENTS [facility] 6-Click Daily Activities Help from Other: Don/Doff Regular Lower Body Clothings: A lot Help From Other: Bathing: A lot Help From Other: Toileting: A lot Help From Other: Don/Doff Upper Body Clothings: Little Help From Other: Grooming: Little Help From Other: Eating Meals: Little [facility] 6 Click - Daily Activities Score: 15 [...] at 10:04 AM. * Progress Notes - Elysas Healy - 01/05/2025 9:40 AM EST Physical [...] Care Family/Caregiver Present: No Family/Caregiver: Spouse, Mother Director Of Strategic Sales: Not Applicable Presentation Oxygen Therapy: Supplemental oxygen [...] Home Living Comments: Patient had been to [facility] in September, and was still receiving outpatient PT. Prior Level of Function Receives Help From: Spouse Level of Mobility: Ambulatory- household only Mobility Waldo: Independent gait without device History of Falls: [...] bed. Bed Mobility Exam: Rolling/Turning Level of Waldo: Minimum assist (75% patient effort) Physical/Nonphysical Assist: Verbal Cues, Nonverbal cues (demo/gestures), 1 person + 1 person to manage equipment Bed Mobility Exam: Scooting/Bridging Level of Waldo: Minimum assist (75% patient's effort) (seated scoot) Physical/Nonphysical Assist: Nonverbal cues (demo/gestures), Verbal Cues Bed Mobility Exam: Supine to Sit Level of Waldo: Moderate assist (50% patient's effort) Physical/Nonphysical Assist: [...] Transfer Exam: Sit to stand Level of Waldo: Minimum assist (75% patient's effort) Physical/Nonphysical Assist: Verbal Cues, Nonverbal cues (demo/gestures), Additional assist utilized for safety Assistive Device: Hand held assist Transfer Exam: Stand to Sit Level of Waldo: Minimum assist (75% patient's effort) Physical/Nonphysical Assist: Nonverbal cues (demo/gestures), Verbal Cues, Additional assist utilized for safety Assistive Device: Hand held assist Transfer Exam: Bed to Chair/Chair to Bed Level of Waldo: Minimum assist (75% patient's effort) Physical/Nonphysical Assist: [...] activity. Standardized Assessments Standardized Assessments Standardized Assessments: AMPAC 6-Clicks Mobility Assessment AMPA 6-Clicks Mobility Assessment Difficulty patient has turning [...] 3-5 steps with a railing?: A lot [facility] 6-Clicks Mobility Assessment Total : 17 [...] anxiety, GERD, and HTN who presents to [facility] on 01/02 for possible liver transplant. 01/03: OLT Interval: POC okay, 1u pRBCs and 1u FFP ON. BP 167/94, HR 82. Extubated, on 4L NC. HDS, no pressors. AF. UOP 925mL. OMLLY 840 and 70 charted. Cr 1.84 (1.73). [...] anxiety, GERD, and HTN who presents to [facility] on 01/02 for possible liver transplant. Now s/p liver transplant on 01/03, recovering well. Extubated post-op 01/03 to [place]. HDS off pressors.Received pRBCs and FFP ON. [...] saw and evaluated the patient with the medical/SET AND EXHIBIT DESIGNER/PA student. I discussed the case with the medical/SET AND EXHIBIT DESIGNER/PA student and agree with the findings and [...] APRN, DNP, 50 mg at 01/04/252108 * Care Plan - Shaka Burciaga RN [...] Alicia Rodrigues PharmD PGY2 Solid Organ Transplant Arabic Linguist * Progress Notes - Laura Muñiz LCSW [...] interventions in follow-up notes Laura Muñiz LCSW, [facility] Transplant Transportation Officer Liver team * ED Procedure Note - Cheryl Choi MD - 01/04/2025 11:23 AM EST Abdominal Transplant Surgery Progress Note Events of past 24 hours: Orly White is a 44yo male with a PMH of decompensated alcohol related cirrhosis, ascites, HE, SBP, depression, anxiety, GERD, and HTN who presents to [facility] on 01/02 for possible liver transplant. [...] results found for: BDVEN , BEVEN , HMB8BPP , WRI4SFX , PHVEN , PO2VEN , X6JBAHQB , [id number] , PHVENTEMP Lactate: Lactate, Arterial, Whole Blood [...] anxiety, GERD, and HTN who presents to [facility] on 01/02 for possible liver transplant. Now s/p liver transplant on 01/03, recovering well. Extubated overnight to [place]. HDS off pressors. Received pRBCs and FFP [...] Ppx: Hold SQH/ASA. Ppi Imm: Start fk 2/. MMF 1000mg BID. Steroid taper Continue ICU [...] Note Orly White 44 y.o. male CSN: [id number] Room/Bed 238/238A Nutrition evaluation type: assessment Reason [...] 30.3 Weight Evaluation: Obese-Class 1 (BMI 30-34.9) [place] Body Weight (kg): 86.4 Percent [place] Body Weight: 124 Estimated Needs: Metabolic Cart Study Results: Current Nutrition Intake: Diet Supplements: None Diet Order: NPO Diet Experience and Nutrition History: Diet Education Provided: Will monitor Pertinent home medications: Buddhism needs: Nutrition Focused Physical Exam: Unable to [...] Assessment & Plan Note - Camilla Soto, TITA, DNP - 01/04/2025 9:19 AM EST Associated [...] Right 01/03/25 0730 Internal jugular 1 GCS: Durham Coma Scale Score: 15 Review of Systems [...] 01/04/2025 0600 Gross per 24 hour Intake 19319 ml Output 3680 ml Net 6536 ml [...] Met * Assessment & Plan Note - Cmailla Soto APRN, DNP - 01/03/2025 3:54 PM [...] ~1.5L ascites and EBL 4.8L intra- operatively. [facility] consulted postop for critical care needs. Patient [...] Home Medications: Home Medications[1] Allergies Amoxicillin GCS: [place] Coma Scale Score: 15 Review of Systems Unable to perform ROS: Intubated Vital signs: Vitals: 01/03/25 1515 BP: Pulse: 75 Resp: 18 Temp: 37.2 ??C (99 ??F) SpO2: 97% Intake/Output Summary (Last 24 hours) at 01/03/2025 1518 Last data filed at 01/03/2025 1407 Gross per 24 hour Intake 93069 ml Output 1040 ml Net 46843 ml Physical Exam: Sedation was held for [...] to trend Transfuse for INR<2 Camilla Soto, DEHYDRATOR TENDER, DNP [1] Medications Prior to Admission Medication [...] mL by mouth 2 times a day. 43959 mL 3 pantoprazole (Protonix) 40 MG EC [...] 10:03 AM EST This is to attest grinder rn international chart note has been reviewed and okayed. [...] failure POSTOPERATIVE DIAGNOSIS: Same NAME OF OPERATION: 70353 - Backbench standard preparation of cadaver donor [...] AM EST Operative Note Date: 01/03/2025 Location: [place] [facility] Name: Orly White, : 1980, [facility] DONOR ID: [id number] DONOR ABO: A Recipient ABO: A Negative [...] with the hepatectomy, vascular anastomoses, and reperfusion. Roller Turner(s): * Negro Cr MD - Resident - [...] CAUTI: Collection Container Standard drainage bag 01/06/25 0400 CAUTI: Securement Method Securing device (Describe) 01/06/25 040 CAUTI: Specimen Collection Port Covered with Alcohol Cap Yes 01/05/251999 CAUTI: Urinary Catheter Indication Yes, meets indication reason 01/05/251999 CAUTI: Urinary Catheter Indication Reasons ICU patient requiring output monitoring q 1-2 hours withinterventions 01/05/251999 Output (mL) 100 mL 01/06/25 0800 [REMOVED] NG/OG Hodgeman Sump Orogastric Left mouth (Removed) Placement Verification [...] ID Source Frozen? 1 Liver No Description: [place] liver A Blood, Arterial B Blood, Arterial [...] abuse POSTOPERATIVE DIAGNOSIS: Same NAME OF OPERATION: 78651 - Orthotopic cadaveric liver allotransplantation, bicaval technique. 28675 - Choledochocholedcostomy 08946 - Placement of choledochal stent ATTENDING SURGEON: Satnam Beckford MD EMBEDDED ENGINEER SURGEON(S): Jude Albrecht MD RESIDENT SURGEON(S): Negro Cr MD ATTENDING ANESTHESIOLOGIST: Josafat Rivera MD EMBEDDED ENGINEER ANESTHESIOLOGIST: Aravind Benton MD SPECIMEN: None DISPOSITION: [...] Quesada MD Department of Urology, PGY-1 Pager: [phone] * Care Plan - Allison Rosenbaum RN [...] encouraged * Progress Notes - Greg Sibley, PharmD - 01/02/2025 4:27 PM EST Images [...] nightly. Facility-Administered Medications: None Patients Preferred Pharmacy* [facility] - [place], [place] - [address] [facility] [address] [facility] [address] [place] [address] [address] [place], [place] - [address] [facility] [address] [facility] [place] [address] *May default to [facility] if patient is enrolled to [id number] Service. Pharmacy Benefits [facility] AETNA (MEDIMPACT) Covered: <b>Retail</b> Not covered: Mail Order Unknown: Specialty, Long-Term Care BIN: [id number] : 1980 Group ID: [id number] PCN: [id number] Legal sex: M Group name: Address: [facility] [address] [place] [id number] Additional Comments: reviewed med list with patient's over the phone Greg Sibley PharmD 01/02/2025 4:27 PM I agree with the information documented above. All student/rn international notes from collection of information has been [...] Note Orly White 44 y.o. male CSN: [id number] Admission: 01/02/2025 9:05 AM Primary Problem: Decompensation of cirrhosis of liver (CMS/HCC) Ground Crew Supervisor reviewed chart and spoke with patient to complete this Initial Case Management Assessment. PCP: Param Eng DO Emergency Contact: Extended Emergency Contact Information Primary Emergency Contact: Patricia White Address: [address] [address] [place] Relation: Spouse Preferred language: Icelandic Insurance: Primary Visit Coverage Payer Plan Sponsor Code Group Number Group Name [facility] Primary Visit Coverage Subscriber Subscriber ID Subscriber Name Subscriber SSN Subscriber Address [id number] ORLY WHITE [id number] [place] [address] Secondary Visit Coverage Payer Plan Sponsor Code Group Number Group Name [facility] Secondary Visit Coverage Subscriber Subscriber ID Subscriber Name Subscriber [facility] Subscriber Address [id number] Orly White [id number] [place], [place] [address] Patient information: Pt admitted for liver transplant. [...] still driving. [address] [place] [address] Current DME: No DME at this time. Pt had requested walker prior to admission. 2-3 falls since May. Bruising only , no broken bones.. Income Information: working now on [employer] income = 900 per month. Pt has applied for social security. Pending. Housing Circumstances-Z Codes: 2 story home. [address]. Bed and bath on ground floor. [place] water. Patient Referred to: Anticipated Discharge Date: TBD Patient's Discharge Goal: Pt would agree to [facility] stay if needed. He has had rehab stay at [facility] in past. Assistance Available at Discharge: = Primary Mother is secondary. Discharge Transport: Follow Up Transport: Home Health / Home Infusion / Outpatient Dialysis Services: No history of home health. No history of home infusion. No history of dialysis. Living Will/Advance Directive/Power of Hhas /Guardian: can make medical decisions if pt can not. Additional Comments: reworker met with pt at bedside. Pt alert [...] transplant during patient's admission. Laura Muñiz LCSW, [facility] Transplant Transportation Officer Liver team * H&P - Félix Simmons APRN, PATTI - 01/02/2025 7:48 AM EST Abdominal Transplant Surgery H&P CHIEF COMPLAINT: Decompensated Cirrhosis, possible Liver translplant HISTORY OF PRESENT ILLNESS: Orly White is a 44yo male with a PMH of decompensated alcohol related cirrhosis, ascites, HE, SBP, depression, anxiety, GERD, and HTN who presents to [facility] on 01/02 forpossible liver transplant. On [...] anxiety, GERD, and HTN who presents to [facility] on 01/02 for possible liver transplant. [...] home trazodone 50mg nightly Edited by: Félix Simmons P, DEHYDRATOR TENDER, DNP at 01/02/2025 1131 Patient educated on [...] mL by mouth 2 times a day. 03145 mL 3 pantoprazole (Protonix) 40 MG EC [...] Team (Late st Contact Info) Description 01/23/2025 7:00 AM EST Clinical Support [facility] [address] [place] [address] 01/23/2025 8:40 AM EST Office Visit [facility] [address] [place] [address] [facility] 03/06/2025 11:10 AM EST Appointment [facility] [address] [place] [address] Natalya Valentine MD [address] [facility] [address] [place] [address] Pending Results Name Type Priority Associated Diagnoses [...] 5:00 AM EST PHOSPHORUS, PLASMA Routine 01/15/2025 5 :00 AM EST MAGNESIUM, PLASMA Routine 01/15/2025 5:0 [...] W/O DIFFERENTIAL Timed 01/05/2025 12:00 PM EST MT CRITICAL CARE, E/M 30-74 MINUTES Routine 01/05/2025 [...] PEP THERAPY Routine 01/04/2025 10:00 AM EST MT CRITICAL CARE, E/M 30-74 MINUTES Routine 01/04/2025 [...] VIEW STAT 01/03/2025 3:3 9 PM EST MT CRITICAL CARE, E/M 30-74 MINUTES Routine 01/03/2025 [...] for testing. Comment 01/16/2025 12:04 PM EST [facility] Marketing Business Analyst ID Shonda Kimbrough 12:04 PM EST [facility] Device ID [id number] 01/16/2025 12:04 PM EST [facility] Specimen Type POC Capillary 01/16/2025 12:04 PM EST [facility] Blood Capillary blood specimen / Unknown 01/16/2025 12:01 PM EST 01/16/2025 12:04 PM EST Satnam Beckford MD LAB POINT OF CARE T EST DOCKED DEVICE UNSOLICITED RESULTS Final Result Performing Organization Address City/State/[facility] Co de Phone Number [facility] [address] [place] [address] * (ABNORMAL) POCT glucose meter (01/16/2025 8:09 [...] for testing. Comment 01/16/2025 8:11 AM EST [facility] Marketing Business Analyst ID Shonda Kimbrough 8:11 AM EST [facility] Device ID [id number] 01/16/2025 8:11 AM EST [facility] Specimen Type POC Capillary 01/16/2025 8:11 AM EST [facility] Blood Capillary blood specimen / Unknown 01/16/2025 8:09 AM EST 01/16/2025 8:11 AM EST us Satnam Beckford MD LAB POINT OF CARE T EST DOCKED DEVICE UNSOLICITED RESULTS Final Result Performing Organization Address [facility] de Phone Number [facility] [address] [place] [address] * Tacrolimus (01/16/2025 4:48 AM EST) Tacrolimus 4.5 4.0 - 17.0 ng/mL 01/16/2025 8:10 AM EST [facility] Blood Venous blood specimen / Unknown Venipuncture / Unknown 01/16/2025 4:48 AM EST 01/16/2025 4:56 AM EST Narrative [facility] - 01/16/2025 8:10 AM EST Test performed by LC-MS/MS at the [facility]. This test was developed and its performance characteristics determined by [facility]. It has not been cleared or approved by the FDA. The laboratory is regulated under CLIA as qualified to perform high-complexity testing. This test is used for clinical purposes. Test performed by LC-MS/MS at the [facility]. This test was developed and its performance characteristics determined by [facility]. It has not been cleared or approved by the FDA. The laboratory is regulated under CLIA as qualified to perform high-complexity testing. This test is used for clinical purposes. us Maciel Olson MD LAB BLOOD ORDERABLES Final Resul t Performing Organization Address City/[facility]/ZIP Co de Phone Number [facility] [address] [place] [address] * Phosphorus (01/16/2025 4:47 AM EST) Phosphorus, Plasma 4.0 2.5 - 4.5 mg/dL 01/16/2025 5:24 AM EST [facility] Blood Venous blood specimen / Unknown Venipuncture / Unknown 01/16/2025 4:47 AM EST 01/16/2025 4:56 AM EST us Maciel Olson MD LAB BLOOD ORDERABLES Final Resul t Performing Organization Address City/[facility]/ZIP Co de Phone Number [facility] [address] [place] [address] * Magnesium (01/16/2025 4:47 AM EST) Magnesium, Plasma 2.0 1.9 - 2.4 mg/dL 01/16/2025 5:24 AM EST [facility] Blood Venous blood specimen / Unknown Venipuncture / Unknown 01/16/2025 4:47 AM EST 01/16/2025 4:56 AM EST us Maciel Olson MD LAB BLOOD ORDERABLES Final Resul t Performing Organization Address [facility] Co de Phone Number [facility] [address] [place] [address] * (ABNORMAL) Comprehensive metabolic panel (01/16/2025 4:47 AM EST) Glucose, Plasma 118(H) 74 - 99 mg/dL 01/16/2025 5:24 AM EST [facility] BUN, Plasma 45(H) 7 - 21 mg/dL 01/16/2025 5:24 AM EST [facility] Creatinine, Plasma 1.28(H) 0.70 - 1.20 mg/dL 01/16/2025 5:24 AM EST [facility] BUN/Creatinine Ratio 35 01/16/2025 5:24 AM EST [facility] Sodium, Plasma 138 136 - 145 mmol/L 01/16/2025 5:24 AM EST [facility] Potassium, Plasma 5.1(H) 3.6 - 4.9 mmol/L 01/16/2025 5:24 AM EST [facility] Chloride, Plasma 107 97 - 107 mmol/L 01/16/2025 5:24 AM EST [facility] CO2, Plasma 20(L) 22 - 29 mmol/L 01/16/2025 5:24 AM EST [facility] Anion Gap 11 6 - 16 mmol/L 01/16/2025 5:24 AM EST [facility] Total Calcium, Plasma 8.3(L) 8.9 - 10.2 mg/dL 01/16/2025 5:24 AM EST [facility] Total Protein 4.8(L) 6.3 - 7.9 g/dL 01/16/2025 5:24 AM EST [facility] Albumin, Plasma 2.7(L) 3.5 - 5.2 g/dL 01/16/2025 5:24 AM EST [facility] AST, Plasma 23 10 - 50 U/L 01/16/2025 5:24 AM EST [facility] ALT, Plasma 55(H) 10 - 50 U/L 01/16/2025 5:24 AM EST [facility] Alkaline Phosphatase, Plasma 93 40 - 115 U/L 01/16/2025 5:24 AM EST [facility] Total Bilirubin, Plasma 4.5(H) 0.2 - 1.1 mg/dL 01/16/2025 5:24 AM EST [facility] eGFRcr 69.9 mL/min/1.7 3m*2 01/16/2025 5:24 AM EST [facility] Comment:Reported eGFRcr in m L/min/1.73m2 is based the CKD-EPI 2020 equation that does not use a race coefficient. Blood Venous blood specimen / Unknown Venipuncture / Unknown 01/16/2025 4:47 AM EST 01/16/2025 4:56 AM EST us Maciel Olson MD LAB BLOOD ORDERABLES Final Resul t [facility] [address] [place] [address] * (ABNORMAL) CBC W/O Differential (01/16/2025 4:47 AM EST) WBC Count 8.27 3.70 - 10.30 10*3/uL LAB HEMATOLOGY METHOD 01/16/2025 5:03 AM EST [facility] RBC Count 2.56(L) 4.60 - 6.10 10*6/uL LAB HEMATOLOGY METHOD 01/16/2025 5:03 AM EST [facility] HGB 8.3(L) 13.7 - 17.5 g/dL LAB HEMATOLOGY METHOD 01/16/2025 5:03 AM EST [facility] HCT 26.1(L) 40.0 - 51.0 % LAB HEMATOLOGY METHOD 01/16/2025 5:03 AM EST [facility] Platelet Count 124(L) 155 - 369 10*3/uL LAB HEMATOLOGY METHOD 01/16/2025 5:03 AM EST [facility] MCV 102(H) 79 - 98 fL LAB HEMATOLOGY METHOD 01/16/2025 5:03 AM EST [facility] MCH 32.4(H) 26.0 - 32.0 pg LAB HEMATOLOGY METHOD 01/16/2025 5:03 AM EST [facility] MCHC 31.8 30.7 - 35.5 g/dL LAB HEMATOLOGY METHOD 01/16/2025 5:03 AM EST [facility] RDW 24.0(H) 11.5 - 14.5 % LAB HEMATOLOGY METHOD 01/16/2025 5:03 AM EST [facility] MPV 10.3 8.8 - 12.5 fL LAB HEMATOLOGY METHOD 01/16/2025 5:03 AM EST [facility] nRBC 0.0 <=0.0 per 100 WBCs LAB HEMATOLOGY METHOD 01/16/2025 5:03 AM EST [facility] Blood Venous blood specimen / Unknown Venipuncture / Unknown 01/16/2025 4:47 AM EST 01/16/2025 4:56 AM EST us Maciel Olson MD LAB BLOOD ORDERABLES Final Resul t [facility] [address] [place] [address] * (ABNORMAL) Prothrombin Time/INR (01/16/2025 4:47 AM EST) Prothrombin Time 14.6(H) 12.0 - 14.3 sec LAB COAGULATION METHOD 01/16/2025 5:22 AM EST [facility] INR 1.1 0.9 - 1.1 LAB COAGULATION METHOD 01/16/2025 5:22 AM EST [facility] Blood Venous blood specimen / Unknown Venipuncture / Unknown 01/16/2025 4:47 AM EST 01/16/2025 4:56 AM EST Narrative [facility] - 01/16/2025 5:22 AM EST OPTIMAL INR RANGES FOR PATIENT ON ORAL ANTICOAGULANT THERAPY Prevention of venous thromboembolism INR 2.0 to 3.0 In patients with heart disease: Atrial fibrillation INR 2.0 to 3.0 Valvular heart disease INR 2.0 to 3.0 Tissue heart valves INR 2.0 to 3.0 Mechanical prosthetic valves INR 2.5 to 3.5 Prevention of recurrent VT INR 2.5 to 3.5 us Maciel Olson MD LAB BLOOD ORDERABLES Final Resul t [facility] [address] [place] [address] * (ABNORMAL) POCT glucose meter (01/15/2025 8:39 PM EST) Pathologist [facility] POCT Glucose 187(H) 74 - 99 mg/dL 01/15/2025 8:41 PM EST [facility] Comment:Accuracy of a glucos e result [...] for testing. Comment 01/15/2025 8:41 PM EST [facility] Marketing Business Analyst ID Elver Medel 01/15/2025 8:41 PM EST [facility] Device ID [id number] 01/15/2025 8:41 PM EST [facility] Specimen Type POC Capillary 01/15/2025 8:41 PM EST [facility] Blood Capillary blood specimen / Unknown 01/15/2025 8:39 PM EST 01/15/2025 8:41 PM EST Satnam Beckford MD LAB POINT OF CARE T EST DOCKED DEVICE UNSOLICITED RESULTS Final Result Performing Organization Address [facility] de Phone Number [facility] [address] [place] [address] * (ABNORMAL) POCT glucose meter (01/15/2025 5:07 PM EST) Pathologist [facility] POCT Glucose 130(H) 74 - 99 mg/dL [...] for testing. Comment 01/15/2025 5:24 PM EST [facility] Marketing Business Analyst ID Shonda Kimbrough 5:24 PM EST [facility] Device ID [id number] 01/15/2025 5:24 PM EST [facility] Specimen Type POC Capillary 01/15/2025 5:24 PM EST [facility] Blood Capillary blood specimen / Unknown 01/15/2025 5:07 PM EST 01/15/2025 5:24 PM EST Satnam Beckford MD LAB POINT OF CARE T EST DOCKED DEVICE UNSOLICITED RESULTS Final Result Performing Organization Address City/[facility] de Phone Number [facility] [address] [place] [address] * (ABNORMAL) POCT glucose meter (01/15/2025 11:54 AM EST) Pathologist [facility] POCT Glucose 105(H) 74 - 99 mg/dL [...] 01/15/2025 11:59 AM EST [facility] Marketing Business Analyst ID Shonda Kimbrough 11:59 AM EST [facility] Device ID [id number] 01/15/2025 11:59 AM EST [facility] Specimen Type POC Capillary 01/15/2025 11:59 AM EST [facility] Blood Capillary blood specimen / Unknown 01/15/2025 11:54 AM EST 01/15/2025 11:59 AM EST Satnam Beckford MD LAB POINT OF CARE T EST DOCKED DEVICE UNSOLICITED RESULTS Final Result Performing Organization Address City/[facility] Co de Phone Number [facility] [address] [place] [address] * (ABNORMAL) POCT glucose meter (01/15/2025 7:53 [...] for testing. Comment 01/15/2025 7:55 AM EST [facility] Marketing Business Analyst ID Shonda Kimbrough 7:55 AM EST [facility] Device ID [id number] 01/15/2025 7:55 AM EST [facility] Specimen Type POC Capillary 01/15/2025 7:55 AM EST [facility] Blood Capillary blood specimen / Unknown 01/15/2025 7:53 AM EST 01/15/2025 7:55 AM EST Satnam Beckford MD LAB POINT OF CARE T EST DOCKED DEVICE UNSOLICITED RESULTS Final Result Performing Organization Address City/[facility]/ZIP Co de Phone Number [facility] [address] [place] [address] * Phosphorus (01/15/2025 5:00 AM EST) Phosphorus, Plasma 3.5 2.5 - 4.5 mg/dL 01/15/2025 6:15 AM EST [facility] Blood Venous blood specimen / Unknown Venipuncture / Unknown 01/15/2025 5:00 AM EST 01/15/2025 5:24 AM EST us Maciel Olson MD LAB BLOOD ORDERABLES Final Resul t Performing Organization Address City/[facility]/ZIP Co de Phone Number [facility] [address] [place] [address] * Magnesium (01/15/2025 5:00 AM EST) Magnesium, Plasma 2.1 1.9 - 2.4 mg/dL 01/15/2025 6:15 AM EST [facility] Blood Venous blood specimen / Unknown Venipuncture / Unknown 01/15/2025 5:00 AM EST 01/15/2025 5:24 AM EST us Maciel Olson MD LAB BLOOD ORDERABLES Final Resul t Performing Organization Address City/[facility]/ZIP Co de Phone Number [facility] [address] [place] [address] * (ABNORMAL) Comprehensive metabolic panel (01/15/2025 5:00 AM EST) Glucose, Plasma 164(H) 74 - 99 mg/dL 01/15/2025 6:15 AM EST [facility] BUN, Plasma 39(H) 7 - 21 mg/dL 01/15/2025 6:15 AM EST [facility] Creatinine, Plasma 1.37(H) 0.70 - 1.20 mg/dL 01/15/2025 6:15 AM EST [facility] BUN/Creatinine Ratio 28 01/15/2025 6:15 AM EST [facility] Sodium, Plasma 140 136 - 145 mmol/L 01/15/2025 6:15 AM EST [facility] Potassium, Plasma 4.8 3.6 - 4.9 mmol/L 01/15/2025 6:15 AM EST [facility] Chloride, Plasma 108(H) 97 - 107 mmol/L 01/15/2025 6:15 AM EST [facility] CO2, Plasma 20(L) 22 - 29 mmol/L 01/15/2025 6:15 AM EST [facility] Anion Gap 12 6 - 16 mmol/L 01/15/2025 6:15 AM EST [facility] Total Calcium, Plasma 7.9(L) 8.9 - 10.2 mg/dL 01/15/2025 6:15 AM EST [facility] Total Protein 4.6(L) 6.3 - 7.9 g/dL 01/15/2025 6:15 AM EST [facility] Albumin, Plasma 2.5(L) 3.5 - 5.2 g/dL 01/15/2025 6:15 AM EST [facility] AST, Plasma 21 10 - 50 U/L 01/15/2025 6:15 AM EST [facility] ALT, Plasma 51(H) 10 - 50 U/L 01/15/2025 6:15 AM EST [facility] Alkaline Phosphatase, Plasma 95 40 - 115 U/L 01/15/2025 6:15 AM EST [facility] Total Bilirubin, Plasma 5.6(H) 0.2 - 1.1 mg/dL 01/15/2025 6:15 AM EST [facility] eGFRcr 64.4 mL/min/1.7 3m*2 01/15/2025 6:15 AM EST [facility] Comment:Reported eGFRcr in m L/min/1.73m2 is based the CKD-EPI 2020 equation that does not use a race coefficient. Blood Venous blood specimen / Unknown Venipuncture / Unknown 01/15/2025 5:00 AM EST 01/15/2025 5:24 AM EST us Maciel Olson MD LAB BLOOD ORDERABLES Final Resul t [facility] [address] [place] [address] * (ABNORMAL) CBC W/O Differential (01/15/2025 5:00 AM EST) [facility] WBC Count 9.22 3.70 - 10.30 10*3/uL LAB HEMATOLOGY METHOD 01/15/2025 5:24 AM EST [facility] RBC Count 2.63(L) 4.60 - 6.10 10*6/uL LAB HEMATOLOGY METHOD 01/15/2025 5:24 AM EST [facility] HGB 8.2(L) 13.7 - 17.5 g/dL LAB HEMATOLOGY METHOD 01/15/2025 5:24 AM EST [facility] HCT 26.4(L) 40.0 - 51.0 % LAB HEMATOLOGY METHOD 01/15/2025 5:24 AM EST [facility] Platelet Count 94(L) 155 - 369 10*3/uL LAB HEMATOLOGY METHOD 01/15/2025 5:24 AM EST [facility] MCV 100(H) 79 - 98 fL LAB HEMATOLOGY METHOD 01/15/2025 5:24 AM EST [facility] MCH 31.2 26.0 - 32.0 pg LAB HEMATOLOGY METHOD 01/15/2025 5:24 AM EST [facility] MCHC 31.1 30.7 - 35.5 g/dL LAB HEMATOLOGY METHOD 01/15/2025 5:24 AM EST [facility] RDW 24.6(H) 11.5 - 14.5 % LAB HEMATOLOGY METHOD 01/15/2025 5:24 AM EST [facility] MPV 11.2 8.8 - 12.5 fL LAB HEMATOLOGY METHOD 01/15/2025 5:24 AM EST [facility] nRBC 0.0 <=0.0 per 100 WBCs LAB HEMATOLOGY METHOD 01/15/2025 5:24 AM EST [facility] Blood Venous blood specimen / Unknown Venipuncture / Unknown 01/15/2025 5:00 AM EST 01/15/2025 5:16 AM EST us Maciel Olson MD LAB BLOOD ORDERABLES Final Resul t [facility] [address] [place] [address] * (ABNORMAL) Prothrombin Time/INR (01/15/2025 5:00 AM EST) Prothrombin Time 15.1(H) 12.0 - 14.3 sec LAB COAGULATION METHOD 01/15/2025 5:49 AM EST [facility] INR 1.2(H) 0.9 - 1.1 LAB COAGULATION METHOD 01/15/2025 5:[address] [facility] Blood Venous blood specimen / Unknown Venipuncture / Unknown 01/15/2025 5:00 AM EST 01/15/2025 5:16 AM EST Narrative [facility] - 01/15/2025 5:49 AM EST OPTIMAL INR RANGES FOR PATIENT ON ORAL ANTICOAGULANT THERAPY Prevention of venous thromboembolism INR 2.0 to 3.0 In patients with heart disease: Atrial fibrillation INR 2.0 to 3.0 Valvular heart disease INR 2.0 to 3.0 Tissue heart valves INR 2.0 to 3.0 Mechanical prosthetic valves INR 2.5 to 3.5 Prevention of recurrent VT INR 2.5 to 3.5 us Maciel Olson MD LAB BLOOD ORDERABLES Final Resul t [facility] [address] [place] [address] * Tacrolimus (01/15/2025 5:00 AM EST) Tacrolimus 7.5 4.0 - 17.0 ng/mL 01/15/2025 8:01 AM EST [facility] Comment: Tacrolimus therapeutic range: Initial (<3 mo.) Maintenance Kidney 8-13 ng/mL 4-8 ng/mL Liver 8-13 ng/mL 4-8 ng/mL Heart 8-15 ng/mL 7-13 ng/mL Lung;Heart/Lung 8-17 ng/mL 8-13 ng/mL Blood Venous blood specimen / Unknown Venipuncture / Unknown 01/15/2025 5:00 AM EST 01/15/2025 5:16 AM EST Narrative [facility] - 01/15/2025 8:01 AM EST Test performed by LC-MS/MS at the [facility]. This test was developed and its performance characteristics determined by [facility]. It has not been cleared or approved by the FDA. The laboratory is regulated under CLIA as qualified to perform high-complexity testing. This test is used for clinical purposes. Test performed by LC-MS/MS at the [facility]. This test was developed and its performance characteristics determined by [facility]. It has not been cleared or approved by the FDA. The laboratory is regulated under CLIA as qualified to perform high-complexity testing. This test is used for clinical purposes. Maciel Olson MD LAB BLOOD ORDERABLES Final Resul t Performing Organization Address City/[facility]/ZIP Co de Phone Number [facility] [address] [place] [address] * (ABNORMAL) POCT glucose meter (01/14/2025 8:25 PM EST) POCT Glucose 182(H) 74 - 99 mg/dL 01/14/2025 8:26 PM EST [facility] Comment:Accuracy of [...] 01/14/2025 8:26 PM EST [facility] Marketing Business Analyst ID Elver Medel 01/14/2025 8:26 PM EST [facility] Device ID [id number] 01/14/2025 8:26 PM EST [facility] Specimen Type POC Capillary 01/14/2025 8:26 PM EST [facility] Blood Capillary blood specimen / Unknown 01/14/2025 8:25 PM EST 01/14/2025 8:26 PM EST Satnam Beckford MD LAB POINT OF CARE T EST DOCKED DEVICE UNSOLICITED RESULTS Final Result Performing Organization Address City/[facility]/ZIP Co de Phone Number [facility] [address] [place] [address] * (ABNORMAL) POCT glucose meter (01/14/2025 5:01 PM EST) POCT Glucose 171(H) 74 - 99 mg/dL 01/14/2025 5:02 PM EST [facility] Comment:Accuracy of [...] 01/14/2025 5:02 PM EST [facility] Marketing Business Analyst ID Ritu Ma 5:02 PM EST [facility] Device ID [id number] 01/14/2025 5:02 PM EST [facility] Specimen Type POC Capillary 01/14/2025 5:02 PM EST [facility] Blood Capillary blood specimen / Unknown 01/14/2025 5:01 PM EST 01/14/2025 5:02 PM EST Satnam Beckford MD LAB POINT OF CARE T EST DOCKED DEVICE UNSOLICITED RESULTS Final Result Performing Organization Address City/State/[facility] Co de Phone Number [facility] [address] [place] [address] * (ABNORMAL) POCT glucose meter (01/14/2025 11:29 [...] 01/14/2025 11:31 AM EST [facility] Marketing Business Analyst ID Ritu Ma 11:31 AM EST [facility] Device ID [id number] 01/14/2025 11:31 AM EST [facility] Specimen Type POC Capillary 01/14/2025 11:31 AM EST [facility] Blood Capillary blood specimen / Unknown 01/14/2025 11:29 AM EST 01/14/2025 11:31 AM EST Satnam Beckford MD LAB POINT OF CARE T EST DOCKED DEVICE UNSOLICITED RESULTS Final Result Performing Organization Address City/[facility]/ZIP Co de Phone Number [facility] [address] [place] [address] * (ABNORMAL) POCT glucose meter (01/14/2025 7:59 AM EST) POCT Glucose 140(H) 74 - 99 mg/dL 01/14/2025 8:00 AM EST [facility] Comment:Accuracy of a glucos e result [...] for testing. Comment 01/14/2025 8:00 AM EST [facility] Marketing Business Analyst ID Ritu Ma 8:00 AM EST [facility] Device ID [id number] 01/14/2025 8:00 AM EST [facility] Specimen Type POC Capillary 01/14/2025 8:00 AM EST [facility] Blood Capillary blood specimen / Unknown 01/14/2025 7:59 AM EST 01/14/2025 8:00 AM EST Satnam Beckford MD LAB POINT OF CARE T EST DOCKED DEVICE UNSOLICITED RESULTS Final Result Performing Organization Address City/[facility]/ZIP Co de Phone Number [facility] [address] [place] [address] * Phosphorus (01/14/2025 4:56 AM EST) Phosphorus, Plasma 3.4 2.5 - 4.5 mg/dL 01/14/2025 5:39 AM EST [facility] Blood Venous blood specimen / Unknown Venipuncture / Unknown 01/14/2025 4:56 AM EST 01/14/2025 5:03 AM EST Maciel Olson MD LAB BLOOD ORDERABLES Final Resul t [facility] [address] [place] [address] * Magnesium (01/14/2025 4:56 AM EST) Magnesium, Plasma 2.1 1.9 - 2.4 mg/dL 01/14/2025 5:39 AM EST [facility] Blood Venous blood specimen / Unknown Venipuncture / Unknown 01/14/2025 4:56 AM EST 01/14/2025 5:03 AM EST us Maciel Olson MD LAB BLOOD ORDERABLES Final Resul t Performing Organization Address [facility]/ZIP Co de Phone Number [facility] [address] [place] [address] * (ABNORMAL) Comprehensive metabolic panel (01/14/2025 4:56 AM EST) Glucose, Plasma 143(H) 74 - 99 mg/dL 01/14/2025 5:39 AM EST [facility] BUN, Plasma 29(H) 7 - 21 mg/dL 01/14/2025 5:39 AM EST [facility] Creatinine, Plasma 1.50(H) 0.70 - 1.20 mg/dL 01/14/2025 5:39 AM EST [facility] BUN/Creatinine Ratio 19 01/14/2025 5:39 AM EST [facility] Sodium, Plasma 137 136 - 145 mmol/L 01/14/2025 5:39 AM EST [facility] Potassium, Plasma 4.6 3.6 - 4.9 mmol/L 01/14/2025 5:39 AM EST [facility] Chloride, Plasma 107 97 - 107 mmol/L 01/14/2025 5:39 AM EST [facility] CO2, Plasma 20(L) 22 - 29 mmol/L 01/14/2025 5:39 AM EST [facility] Anion Gap 10 6 - 16 mmol/L 01/14/2025 5:39 AM EST [facility] Total Calcium, Plasma 7.6(L) 8.9 - 10.2 mg/dL 01/14/2025 5:39 AM EST [facility] Total Protein 4.7(L) 6.3 - 7.9 g/dL 01/14/2025 5:39 AM EST [facility] Albumin, Plasma 2.6(L) 3.5 - 5.2 g/dL 01/14/2025 5:39 AM EST [facility] AST, Plasma 24 10 - 50 U/L 01/14/2025 5:39 AM EST [facility] ALT, Plasma 54(H) 10 - 50 U/L 01/14/2025 5:39 AM EST [facility] Alkaline Phosphatase, Plasma 96 40 - 115 U/L 01/14/2025 5:39 AM EST [facility] Total Bilirubin, Plasma 8.9(H) 0.2 - 1.1 mg/dL 01/14/2025 5:39 AM EST [facility] eGFRcr 57.8 mL/min/1.7 3m*2 01/14/2025 5:39 AM EST [facility] Comment:Reported eGFRcr in m L/min/1.73m2 is based the CKD-EPI 2020 equation that does not use a race coefficient. Blood Venous blood specimen / Unknown Venipuncture / Unknown 01/14/2025 4:56 AM EST 01/14/2025 5:03 AM EST us Maciel Olson MD LAB BLOOD ORDERABLES Final Resul t [facility] [address] [place] [address] * (ABNORMAL) CBC W/O Differential (01/14/2025 4:56 AM EST) WBC Count 5.47 3.70 - 10.30 10*3/uL LAB HEMATOLOGY METHOD 01/14/2025 5:12 AM EST [facility] RBC Count 2.57(L) 4.60 - 6.10 10*6/uL LAB HEMATOLOGY METHOD 01/14/2025 5:12 AM EST [facility] HGB 8.4(L) 13.7 - 17.5 g/dL LAB HEMATOLOGY METHOD 01/14/2025 5:12 AM EST [facility] HCT 25.4(L) 40.0 - 51.0 % LAB HEMATOLOGY METHOD 01/14/2025 5:12 AM EST [facility] Platelet Count 76(L) 155 - 369 10*3/uL LAB HEMATOLOGY METHOD 01/14/2025 5:12 AM EST [facility] MCV 99(H) 79 - 98 fL LAB HEMATOLOGY METHOD 01/14/2025 5:12 AM EST [facility] MCH 32.7(H) 26.0 - 32.0 pg LAB HEMATOLOGY METHOD 01/14/2025 5:12 AM EST [facility] MCHC 33.1 30.7 - 35.5 g/dL LAB HEMATOLOGY METHOD 01/14/2025 5:12 AM EST [facility] RDW 23.9(H) 11.5 - 14.5 % LAB HEMATOLOGY METHOD 01/14/2025 5:12 AM EST [facility] MPV 11.3 8.8 - 12.5 fL LAB HEMATOLOGY METHOD 01/14/2025 5:12 AM EST [facility] nRBC 0.0 <=0.0 per 100 WBCs LAB HEMATOLOGY METHOD 01/14/2025 5:12 AM EST [facility] Blood Venous blood specimen / Unknown Venipuncture / Unknown 01/14/2025 4:56 AM EST 01/14/2025 5:02 AM EST us Maciel Olson MD LAB BLOOD ORDERABLES Final Resul t [facility] [address] [place] [address] * (ABNORMAL) Prothrombin Time/INR (01/14/2025 4:56 AM EST) Prothrombin Time 15.0(H) 12.0 - 14.3 sec LAB COAGULATION METHOD 01/14/2025 5:24 AM EST [facility] INR 1.2(H) 0.9 - 1.1 LAB COAGULATION METHOD 01/14/2025 5:24 AM EST [facility] Blood Venous blood specimen / Unknown Venipuncture / Unknown 01/14/2025 4:56 AM EST 01/14/2025 5:02 AM EST Narrative [facility] - 01/14/2025 5:24 AM EST OPTIMAL INR RANGES FOR PATIENT ON ORAL ANTICOAGULANT THERAPY Prevention of venous thromboembolism INR 2.0 to 3.0 In patients with heart disease: Atrial fibrillation INR 2.0 to 3.0 Valvular heart disease INR 2.0 to 3.0 Tissue heart valves INR 2.0 to 3.0 Mechanical prosthetic valves INR 2.5 to 3.5 Prevention of recurrent VT INR 2.5 to 3.5 us Maciel Olson MD LAB BLOOD ORDERABLES Final Resul t Performing Organization Address [facility] Co de Phone Number [facility] [address] [place] [address] * Tacrolimus (01/14/2025 4:56 AM EST) Tacrolimus 8.1 4.0 - 17.0 ng/mL 01/14/2025 8:[address] [facility] Blood Venous blood specimen / Unknown Venipuncture / Unknown 01/14/2025 4:56 AM EST 01/14/2025 5:02 AM EST Narrative [facility] - 01/14/2025 8:11 AM EST Test performed by LC-MS/MS at the [facility]. This test was developed and its performance characteristics determined by [facility]. It has not been cleared or approved by the FDA. The laboratory is regulated under CLIA as qualified to perform high-complexity testing. This test is used for clinical purposes. Test performed by LC-MS/MS at the [facility]. This test was developed and its performance characteristics determined by [facility]. It has not been cleared or approved by the FDA. The laboratory is regulated under CLIA as qualified to perform high-complexity testing. This test is used for clinical purposes. us Maciel Olson MD LAB BLOOD ORDERABLES Final Resul t Performing Organization Address [facility] Co de Phone Number [facility] [address] [place] [address] * (ABNORMAL) POCT glucose meter (01/13/2025 7:34 PM EST) POCT Glucose 199(H) 74 - 99 mg/dL 01/13/2025 7:36 PM EST [facility] Comment:Accuracy of [...] for testing. Comment 01/13/2025 7:36 PM EST [facility] Marketing Business Analyst ID Katarina Nowak 01/14/20 7:36 PM EST [facility] Device ID [id number] 01/13/2025 7:36 PM EST [facility] Specimen Type POC Capillary 01/13/2025 7:36 PM EST [facility] Blood Capillary blood specimen / Unknown 01/13/2025 7:34 PM EST 01/13/2025 7:36 PM EST Satnam Beckford MD LAB POINT OF CARE T EST DOCKED DEVICE UNSOLICITED RESULTS Final Result Performing Organization Address City/State/[facility] Co de Phone Number [facility] [address] [place] [address] * (ABNORMAL) POCT glucose meter (01/13/2025 6:12 PM EST) [facility] Signature POCT Glucose 133(H) 74 - 99 mg/dL [...] for testing. Comment 01/13/2025 6:14 PM EST [facility] Marketing Business Analyst ID JoseTila 6:14 PM EST [facility] Device ID [id number] 01/13/2025 6:14 PM EST [facility] Specimen Type POC Capillary 01/13/2025 6:14 PM EST [facility] Blood Capillary blood specimen / Unknown 01/13/2025 6:12 PM EST 01/13/2025 6:14 PM EST us Satnam Beckford MD LAB POINT OF CARE T EST DOCKED DEVICE UNSOLICITED RESULTS Final Result [facility] [address] [place] [address] * US Guided Needle Biopsy Liver (01/13/2025 [...] transplant with elevated LFTs and hyperbilirubinemia. TECHNIQUE: Boot Liner Maker: Ghislaine Borges APRN Secondary Marketing Business Analyst: None. Medications: IV conscious sedation with continuous physiologic monitoring provided by a qualified healthcare professional using Versed 1 mg IV and Fentanyl 50mcg IV. 1% Lidocaine SQ. Antibiotics: N/A Duration of Conscious Sedation: Time out: 8449 Procedure: After discussion of risks and benefits, [...] liver transplant with elevated LFTs andhyperbilirubinemia. TECHNIQUE: Boot Liner Maker: Ghislaine Borgse APRN Secondary Marketing Business Analyst: Jairo. Medications: IV conscious sedation with continuous physiologic monitoringprovided by a qualified healthcare professional using Versed 1 mg IV andFentanyl 50mcg IV. 1% Lidocaine SQ. Antibiotics: N/A Duration of Conscious Sedation: Time out: 1558 Procedure: After discussion of risks and benefits, [...] 01/15/2025 6:57 AM Final report signed by iRley Wallis MD on 01/15/2025 7:12 AM us Vanda Eulogio Maguire DEHYDRATOR TENDER, DNP IMG US PROCEDURES Tami l Result * Surgical Pathology Exam (01/13/2025 4:16 PM EST) Case Report Surgical Pathology Case: [id number] Authorizing Provider: Satnam Beckford MD Collected: 01/13/2025 1616 Ordering Location: [facility] A Inpatient Received: 01/13/2025 1659 Pathologist: Danny Pichardo MD Specimen: Liver 5:27 PM EST [facility] Final Diagnosis A. LIVER, ALLOGRAFT, CORE NEEDLE BIOPSY: - ACUTE CHOLANGITIS WITH ASSOCIATED CHOLESTASIS. - ACUTE CELLULAR REJECTION WITH TREATMENT EFFECT. - SEE COMMENT AND MICROSCOPIC DESCRIPTION. 5:27 PM EST [facility] at 1727 EST Comment Preliminary results were communicated to Dr. Beckford, via e-mail by Dr. Pichardo on 01/14/2025. 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 5 5:27 PM [facility] Special and Immunohistochemical Stains Special Stain: A1-4 Michael Trichrome Stain: performed and interpreted. IHC: A1-5 CMV: negative staining. A1-6 CK7: performed and interpreted. A2-2 CMV: negative staining. A2-3 CK7: performed and interpreted. All controls show appropriate reactivity. All immunohistochemist ry, in situ hybridization, and histochemical tests were developed by and are performed at the [facility], [address] [place] [address]. All tests reported here, except those addressing [...] negativity on decalcified specimens. 5 5:27 PM [facility] Gross Description A. LIVER Received in formalin labeled l iver , are 3 yellow-green soft tissue cores that range from 1.4-1.6 cm in length and up to 0.1 cm in diameter. Entirely submitted in cassettes A1 to A2. Cold Time: 0 Adilene Levine 5:27 PM EST [facility] Note: A resident was involved in the service. I attest I examined the relevant preparations for the specimens and confirmed the diagnosis or interpretation. 5:27 PM EST [facility] Tissue Liver structure / Unknown Non-blood Collection / Unknown 01/13/2025 4:16 PM EST 01/13/2025 4:59 PM EST Comment:TAVERA path please Satnam Beckford MD LAB PATHOLOGY ORDERABLES Fi nal Result Performing Organization Address City/[facility]/ZIP Co de Phone Number [facility] [address] [place] [address] * (ABNORMAL) POCT glucose meter (01/13/2025 11:10 AM EST) POCT Glucose 116(H) 74 - 99 mg/dL 01/13/2025 11:12 AM EST [facility] Comment:Accuracy of a glucos e result [...] for testing. Comment 01/13/2025 11:12 AM EST [facility] Marketing Business Analyst ID Tila Garcia 11:12 AM EST [facility] Device ID [id number] 01/13/2025 11:12 AM EST [facility] Specimen Type POC Capillary 01/13/2025 11:12 AM EST [facility] Blood Capillary blood specimen / Unknown 01/13/2025 11:10 AM EST 01/13/2025 11:12 AM EST Satnam Beckford MD LAB POINT OF CARE T EST DOCKED DEVICE UNSOLICITED RESULTS Final Result Performing Organization Address City/[facility]/ZIP Co de Phone Number [facility] [address] [place] [address] * Herpes Simplex Virus by PCR (Serum) (01/13/2025 10:59 AM EST) Herpes Simplex Virus 1 (HSV-1) PCR Result Not Detected Not Detected 01/14/2025 2:21 PM EST [facility] Herpes Simplex Virus 2 (HSV-2) PCR Result Not Detected Not Detected 01/14/2025 2:21 PM EST [facility] Serum Venous blood specimen / Unknown 01/13/2025 10:59 AM EST 01/13/2025 1:47 PM EST Narrative [facility] - 01/14/2025 2:21 PM EST This PCR assay was developed and its performance characteristics determined by [facility] as appropriate for clinical purposes. This assay has not been cleared or approved by the FDA, but is performed in a CLIA regulated laboratory that is qualified to perform high-complexity testing. Satnam Beckford MD LAB MICROBIOLOGY - GENERAL ORDERABLES Final Result [facility] [address] [place] [address] * Shailesh Suárez Virus (EBV) Quantitative PCR (01/13/2025 10:59 AM EST) Shailesh Suárez Virus, Blood, Quant DNA Interpretation Not Detected Not Detected 01/14/2025 8:[address] [facility] Blood Venous blood specimen / Unknown Venipuncture / Unknown 01/13/2025 10:59 AM EST 01/13/2025 11:[address] [facility] - 01/14/2025 8:41 AM EST EBV Linear [...] developed and it's performance characteristics determined by [facility] as appropriate for clinical purposes. [...] developed and it's performance characteristics determined by [facility] as appropriate for clinical purposes. This assay has not been cleared or approved by the FDA, but is performed in a CLIA regulated laboratory that is qualified to perform high-complexity testing. Satnam Beckford MD LAB BLOOD ORDERABLES Final Result Performing Organization Address [facility] [place] [address] * Cytomegalovirus (CMV) Quantitative PCR (01/13/2025 10:59 AM EST) Pathologist [facility] Cytomegalovirus (CMV) Quantitative Interpretation Not Detected Not Detected 01/14/2025 2:[address] [facility] Blood Venous blood specimen / Unknown Venipuncture / Unknown 01/13/2025 10:59 AM EST 01/13/2025 11:13 AM EST Narrative [facility] [facility] - 01/14/2025 2:52 PM EST The Dí[employer] M2000 CMV test is a Real Time [...] ORDERABLES Final Result Performing Organization Address [facility] Co de Phone Number [facility] [address] [place] [address] * POCT glucose meter (01/13/2025 8:20 AM EST) Pathologist [facility] POCT Glucose 97 74 - 99 mg/dL 01/13/2025 8:21 AM EST [facility] Comment:Accuracy of [...] 01/13/2025 8:21 AM EST [facility] Marketing Business Analyst ID Tila Garcia 8:21 AM EST [facility] Device ID [id number] 01/13/2025 8:21 AM EST [facility] Specimen Type POC Capillary 01/13/2025 8:21 AM EST [facility] Blood Capillary blood specimen / Unknown 01/13/2025 8:20 AM EST 01/13/2025 8:21 AM EST Satnam Beckford MD LAB POINT OF CARE T EST DOCKED DEVICE UNSOLICITED RESULTS Final Result Performing Organization Address City/State/[facility] Co de Phone Number [facility] [address] [place] [address] * (ABNORMAL) POCT glucose meter (01/13/2025 6:36 AM EST) [facility] POCT Glucose 116(H) 74 - 99 [...] 01/13/2025 6:38 AM EST [facility] Marketing Business Analyst ID Andreina Hester 01/13/2025 6:38 AM EST [facility] Device ID [id number] 01/13/2025 6:38 AM EST [facility] Specimen Type POC Capillary 01/13/2025 6:38 AM EST [facility] Blood Capillary blood specimen / Unknown 01/13/2025 6:36 AM EST 01/13/2025 6:38 AM EST Satnam Beckford MD LAB POINT OF CARE T EST DOCKED DEVICE UNSOLICITED RESULTS Final Result Performing Organization Address City/[facility] Co de Phone Number [facility] [address] [place] [address] * POCT glucose meter (01/13/2025 5:52 AM EST) Pathologist [facility] POCT Glucose 88 74 - 99 mg/dL 01/13/2025 5:54 AM EST [facility] Comment:Accuracy of a glucos e result [...] for testing. Comment 01/13/2025 5:54 AM EST [facility] Marketing Business Analyst ID Andreina Hester 01/13/2025 5:54 AM EST [facility] Device ID [id number] 01/13/2025 5:54 AM EST [facility] Specimen Type POC Capillary 01/13/2025 5:54 AM EST [facility] Blood Capillary blood specimen / Unknown 01/13/2025 5:52 AM EST 01/13/2025 5:54 AM EST Satnam Beckford MD LAB POINT OF CARE T EST DOCKED DEVICE UNSOLICITED RESULTS Final Result Performing Organization Address City/[facility]/ZIP Co de Phone Number [facility] [address] [place] [address] * (ABNORMAL) Bilirubin, direct (01/13/2025 4:43 AM EST) Pathologist [facility] Direct Bilirubin, Plasma 8.3(H) <=0.3 mg/dL 01/13/2025 11:13 AM EST [facility] Blood Venous blood specimen / Unknown Venipuncture / Unknown 01/13/2025 4:43 AM EST 01/13/2025 4:51 AM EST Félix Simmons DEHYDRATOR TENDER, DNP LAB BLOOD ORDERA BLES Final Result Performing Organization Address City/[facility]/ZIP Co de Phone Number [facility] [address] [place] [address] * Phosphorus (01/13/2025 4:43 AM EST) Phosphorus, Plasma 3.3 2.5 - 4.5 mg/dL 01/13/2025 5:21 AM EST [facility] Blood Venous blood specimen / Unknown Venipuncture / Unknown 01/13/2025 4:43 AM EST 01/13/2025 4:51 AM EST Maciel Olson MD LAB BLOOD ORDERABLES Final Resul t Performing Organization Address [facility] Co de Phone Number [facility] [address] [place] [address] * Magnesium (01/13/2025 4:43 AM EST) Magnesium, Plasma 2.1 1.9 - 2.4 mg/dL 01/13/2025 5:21 AM EST [facility] Blood Venous blood specimen / Unknown Venipuncture / Unknown 01/13/2025 4:43 AM EST 01/13/2025 4:51 AM EST Maciel Olson MD LAB BLOOD ORDERABLES Final Resul t Performing Organization Address City/[facility]/ZIP Co de Phone Number [facility] [address] [place] [address] * (ABNORMAL) Comprehensive metabolic panel (01/13/2025 4:43 AM EST) Glucose, Plasma 88 74 - 99 mg/dL 01/13/2025 5:21 AM EST [facility] BUN, Plasma 26(H) 7 - 21 mg/dL 01/13/2025 5:21 AM EST [facility] Creatinine, Plasma 1.73(H) 0.70 - 1.20 mg/dL 01/13/2025 5:21 AM EST [facility] BUN/Creatinine Ratio 15 01/13/2025 5:21 AM [facility] Sodium, Plasma 138 136 - 145 mmol/L 01/13/2025 5:21 AM [facility] Potassium, Plasma 3.9 3.6 - 4.9 mmol/L 01/13/2025 5:21 AM [facility] Chloride, Plasma 105 97 - 107 mmol/L 01/13/2025 5:21 AM [facility] CO2, Plasma 21(L) 22 - 29 mmol/L 01/13/2025 5:21 AM [facility] Anion Gap 12 6 - 16 mmol/L 01/13/2025 5:21 AM [facility] Total Calcium, Plasma 7.7(L) 8.9 - 10.2 mg/dL 01/13/2025 5:21 AM [facility] Total Protein 4.5(L) 6.3 - 7.9 g/dL 01/13/2025 5:21 AM [facility] Albumin, Plasma 2.4(L) 3.5 - 5.2 g/dL 01/13/2025 5:21 AM [facility] AST, Plasma 28 10 - 50 U/L 01/13/2025 5:21 AM [facility] ALT, Plasma 60(H) 10 - 50 U/L 01/13/2025 5:21 AM [facility] Alkaline Phosphatase, Plasma 103 40 - 115 U/L 01/13/2025 5:21 AM [facility] Total Bilirubin, Plasma 11.0(H) 0.2 - 1.1 mg/dL 01/13/2025 5:21 AM [facility] eGFRcr 48.7 mL/min/1.7 3m*2 01/13/2025 5:21 AM [facility] Comment:Reported eGFRcr in m L/min/1.73m2 is based the CKD-EPI 2020 equation that does not use a race coefficient. Blood Venous blood specimen / Unknown Venipuncture / Unknown 01/13/2025 4:43 AM EST 01/13/2025 4:51 AM EST us Maciel Olson MD LAB BLOOD ORDERABLES Final Resul t [facility] [address] [place] [address] * (ABNORMAL) CBC W/O Differential (01/13/2025 4:43 AM EST) WBC Count 5.82 3.70 - 10.30 10*3/uL LAB HEMATOLOGY METHOD 01/13/2025 4:59 AM EST [facility] RBC Count 2.61(L) 4.60 - 6.10 10*6/uL LAB HEMATOLOGY METHOD 01/13/2025 4:59 AM EST [facility] HGB 8.5(L) 13.7 - 17.5 g/dL LAB HEMATOLOGY METHOD 01/13/2025 4:59 AM EST [facility] HCT 25.6(L) 40.0 - 51.0 % LAB HEMATOLOGY METHOD 01/13/2025 4:59 AM EST [facility] Platelet Count 54(L) 155 - 369 10*3/uL LAB HEMATOLOGY METHOD 01/13/2025 4:59 AM EST [facility] MCV 98 79 - 98 fL LAB HEMATOLOGY METHOD 01/13/2025 4:59 AM EST [facility] MCH 32.6(H) 26.0 - 32.0 pg LAB HEMATOLOGY METHOD 01/13/2025 4:59 AM EST [facility] MCHC 33.2 30.7 - 35.5 g/dL LAB HEMATOLOGY METHOD 01/13/2025 4:59 AM EST [facility] RDW 23.8(H) 11.5 - 14.5 % LAB HEMATOLOGY METHOD 01/13/2025 4:59 AM EST [facility] MPV 11.0 8.8 - 12.5 fL LAB HEMATOLOGY METHOD 01/13/2025 4:59 AM EST [facility] nRBC 0.0 <=0.0 per 100 WBCs LAB HEMATOLOGY METHOD 01/13/2025 4:59 AM EST [facility] Blood Venous blood specimen / Unknown Venipuncture / Unknown 01/13/2025 4:43 AM EST 01/13/2025 4:49 AM EST Maciel Olson MD LAB BLOOD ORDERABLES Final Resul t Performing Organization Address City/[facility]/ZIP Co de Phone Number [facility] [address] [place] [address] * (ABNORMAL) Prothrombin Time/INR (01/13/2025 4:43 AM EST) Prothrombin Time 14.6(H) 12.0 - 14.3 sec LAB COAGULATION METHOD 01/13/2025 5:18 AM EST [facility] INR 1.1 0.9 - 1.1 LAB COAGULATION METHOD 01/13/2025 5:18 AM EST [facility] Blood Venous blood specimen / Unknown Venipuncture / Unknown 01/13/2025 4:43 AM EST 01/13/2025 4:51 AM EST Narrative [facility] - 01/13/2025 5:18 AM EST OPTIMAL INR RANGES FOR PATIENT ON ORAL ANTICOAGULANT THERAPY Prevention of venous thromboembolism INR 2.0 to 3.0 In patients with heart disease: Atrial fibrillation INR 2.0 to 3.0 Valvular heart disease INR 2.0 to 3.0 Tissue heart valves INR 2.0 to 3.0 Mechanical prosthetic valves INR 2.5 to 3.5 Prevention of recurrent VT INR 2.5 to 3.5 Maciel Olson MD LAB BLOOD ORDERABLES Final Resul t Performing Organization Address City/[facility] Co de Phone Number [facility] [address] [place] [address] * Tacrolimus (01/13/2025 4:43 AM EST) Tacrolimus 8.2 4.0 - 17.0 ng/mL 01/13/2025 8:17 AM EST [facility] Blood Venous blood specimen / Unknown Venipuncture / Unknown 01/13/2025 4:43 AM EST 01/13/2025 4:49 AM EST Narrative [facility] - 01/13/2025 8:17 AM EST Test performed by LC-MS/MS at the [facility]. This test was developed and its performance characteristics determined by [facility]. It has not been cleared or approved by the FDA. The laboratory is regulated under CLIA as qualified to perform high-complexity testing. This test is used for clinical purposes. Test performed by LC-MS/MS at the [facility]. This test was developed and its performance characteristics determined by [facility]. It has not been cleared or approved by the FDA. The laboratory is regulated under CLIA as qualified to perform high-complexity testing. This test is used for clinical purposes. Maciel Olson MD LAB BLOOD ORDERABLES Final Resul t [facility] [address] [place] [address] * POCT glucose meter (2025 7:24 PM EST) POCT Glucose 98 74 - 99 mg/dL 2025 7:26 PM EST [facility] Comment:Accuracy of a glucos e result [...] for testing. Comment 2025 7:26 PM EST [facility] Marketing Business Analyst ID Katarina Nowak 01/13/20 25 7:26 PM EST [facility] Device ID [id number] 2025 7:26 PM EST [facility] Specimen Type POC Capillary 2025 7:26 PM EST [facility] Blood Capillary blood specimen / Unknown 2025 7:24 PM EST 2025 7:26 PM EST Satnam Beckford MD LAB POINT OF CARE T EST DOCKED DEVICE UNSOLICITED RESULTS Final Result Performing Organization Address City/[facility] Co de Phone Number [facility] [address] [place] [address] * (ABNORMAL) POCT glucose meter (2025 5:10 [...] Comment 2025 5:12 PM EST [facility] Marketing Business Analyst ID Ritu Ma 5:12 PM EST [facility] Device ID [id number] 2025 5:12 PM EST [facility] Specimen Type POC Capillary 2025 5:12 PM EST [facility] Blood Capillary blood specimen / Unknown 2025 5:10 PM EST 2025 5:12 PM EST Satnam Beckford MD LAB POINT OF CARE T EST DOCKED DEVICE UNSOLICITED RESULTS Final Result Performing Organization Address City/State/[facility] Co de Phone Number [facility] [address] [place] [address] * (ABNORMAL) POCT glucose meter (2025 2:13 PM EST) [facility] POCT Glucose 110(H) 74 - 99 mg/dL [...] 2025 2:15 PM EST [facility] Marketing Business Analyst ID Dominic Canchola 2025 2:15 PM EST [facility] Device ID [id number] 2025 2:15 PM EST [facility] Specimen Type POC Capillary 2025 2:15 PM EST [facility] Blood Capillary blood specimen / Unknown 2025 2:13 PM EST 2025 2:15 PM EST Satnam Beckford MD LAB POINT OF CARE T EST DOCKED DEVICE UNSOLICITED RESULTS Final Result Performing Organization Address City/[facility] Co de Phone Number [facility] [address] [place] [address] * (ABNORMAL) POCT glucose meter (2025 1:32 [...] for testing. Comment 2025 2:08 PM EST [facility] Marketing Business Analyst ID Rodney Vázquez 2:08 PM EST [facility] Device ID [id number] 2025 2:08 PM EST [facility] Specimen Type POC Capillary 2025 2:08 PM EST [facility] Blood Capillary blood specimen / Unknown 2025 1:32 PM EST 2025 2:08 PM EST Satnam Beckford MD LAB POINT OF CARE T EST DOCKED DEVICE UNSOLICITED RESULTS Final Result Performing Organization Address City/[facility] Co de Phone Number [facility] [address] [place] [address] * POCT glucose meter (2025 1:08 PM EST) POCT Glucose 88 74 - 99 [...] 2025 1:10 PM EST [facility] Marketing Business Analyst ID Rodney Vázquez 025 1:10 PM EST [facility] Device ID [id number] 2025 1:10 PM EST [facility] Specimen Type POC Capillary 2025 1:10 PM EST [facility] Blood Capillary blood specimen / Unknown 2025 1:08 PM EST 2025 1:10 PM EST Satnam Beckford MD LAB POINT OF CARE T EST DOCKED DEVICE UNSOLICITED RESULTS Final Result [facility] [address] [place] [address] * FL ERC (2025 12:59 PM EST) Narrative IMAGING - 2025 2:38 PM EST Images were obtained for surgical purposes. See Parmjit Garcia's surgical note in the patient's chart for the findings. Parmjit Garcia MD IMG FLUOROSCOPY PROCEDURES Fin al Result Performing Organization Address City/[facility]/ZIP Co de Phone Number IMAGING * ERCP [...] for anesthesia administered medications. Staff Staff Role Stephens-Florencio Kearns, RN Endo Nurse Yari Henderson RN Endo Nurse Da De MD Anesthesiologist Bethany Ayers CRNA CRNA Plentz, Ruben R, MD Proceduralist Yi Reese Endo Collections Representative Rell Vivas MD Proceduralist Preprocedure A history [...] and ampullary region appeared normal. ERCP: The slitter creaser slotter operator film showed manju. The duodenoscope was passed under direct vision through the mouth and advanced to the second portion of the duodenum. The major papilla was visualized. The major papilla was angoon. Endo-biliary stent placed during transplant no longer [...] 99 mg/dL 2025 8:37 AM EST [facility] Comment:Accuracy of a glucos e result [...] for testing. Comment 2025 8:37 AM EST [facility] Marketing Business Analyst ID Dominic Canchola 2025 8:37 AM EST [facility] Device ID [id number] 2025 8:37 AM EST [facility] Specimen Type POC Capillary 2025 8:37 AM EST [facility] Blood Capillary blood specimen / Unknown 2025 8:35 AM EST 2025 8:37 AM EST Satnam Beckford MD LAB POINT OF CARE T EST DOCKED DEVICE UNSOLICITED RESULTS Final Result [facility] [address] [place] [address] * POCT glucose meter (2025 7:50 AM [...] 2025 7:52 AM EST [facility] Marketing Business Analyst ID Dominic Canchola 2025 7:52 AM EST [facility] Device ID [id number] 2025 7:52 AM EST [facility] Specimen Type POC Capillary 2025 7:52 AM EST [facility] Blood Capillary blood specimen / Unknown 2025 7:50 AM EST 2025 7:52 AM EST us Maciel Olson MD LAB POINT OF CARE TE ST DOCKED DEVICE UNSOLICITED RESULTS Final Result Performing Organization Address City/[facility] Co de Phone Number [facility] [address] [place] [address] * (ABNORMAL) POCT glucose meter (2025 6:53 AM EST) [facility] POCT Glucose 135(H) 74 - 99 mg/dL 2025 6:54 AM EST [facility] Comment:Accuracy of a glucos e result [...] for testing. Comment 2025 6:54 AM EST [facility] Marketing Business Analyst ID Vida Garcia 2025 6:54 AM EST [facility] Device ID [id number] 2025 6:54 AM EST [facility] Specimen Type POC Capillary 2025 6:54 AM EST [facility] Blood Capillary blood specimen / Unknown 2025 6:53 AM EST 2025 6:54 AM EST us Maciel Olson MD LAB POINT OF CARE TE ST DOCKED DEVICE UNSOLICITED RESULTS Final Result Performing Organization Address City/[facility]/ZIP Co de Phone Number [facility] [address] [place] [address] * POCT glucose meter (2025 6:13 AM EST) Pathologist [facility] POCT Glucose 89 74 - 99 mg/dL [...] for testing. Comment 2025 6:14 AM EST [facility] Marketing Business Analyst ID Daylin Mckeon 2025 6:14 AM EST [facility] [employer] [facility] Device ID [id number] 2025 6:14 AM EST [facility] Specimen Type POC Capillary 2025 6:14 AM EST [facility] Blood Capillary blood specimen / Unknown 2025 6:13 AM EST 2025 6:14 AM EST Maciel Olson MD LAB POINT OF CARE TE ST DOCKED DEVICE UNSOLICITED RESULTS Final Result [facility] [address] [place] [address] * POCT glucose meter (2025 5:53 AM EST) [facility] POCT Glucose 79 74 - 99 [...] 2025 5:55 AM EST [facility] Marketing Business Analyst ID Vida Garcia 2025 5:55 AM EST [facility] Device ID [id number] 2025 5:55 AM EST [facility] Specimen Type POC Capillary 2025 5:55 AM EST [facility] Blood Capillary blood specimen / Unknown 2025 5:53 AM EST 2025 5:55 AM EST us Maciel Olson MD LAB POINT OF CARE TE ST DOCKED DEVICE UNSOLICITED RESULTS Final Result Performing Organization Address City/[facility]/ZIP Co de Phone Number [facility] [address] [place] [address] * Phosphorus (2025 4:51 AM EST) Phosphorus, Plasma 2.9 2.5 - 4.5 mg/dL 2025 5:25 AM EST [facility] Blood Venous blood specimen / Unknown Venipuncture / Unknown 2025 4:51 AM EST 2025 4:57 AM EST us Maciel Olson MD LAB BLOOD ORDERABLES Final Resul t Performing Organization Address City/[facility]/ZIP Co de Phone Number [facility] [address] [place] [address] * Magnesium (2025 4:51 AM EST) Magnesium, Plasma 2.2 1.9 - 2.4 mg/dL 2025 5:25 AM EST [facility] Blood Venous blood specimen / Unknown Venipuncture / Unknown 2025 4:51 AM EST 2025 4:57 AM EST us Maciel Olson MD LAB BLOOD ORDERABLES Final Resul t Performing Organization Address City/[facility]/ZIP Co de Phone Number [facility] [address] [place] [address] * (ABNORMAL) Comprehensive metabolic panel (2025 4:51 AM EST) Glucose, Plasma 76 74 - 99 mg/dL 2025 5:25 AM EST [facility] BUN, Plasma 26(H) 7 - 21 mg/dL 2025 5:25 AM [facility] Creatinine, Plasma 1.26(H) 0.70 - 1.20 mg/dL 2025 5:25 AM [facility] BUN/Creatinine Ratio 21 2025 5:25 AM [facility] Sodium, Plasma 133(L) 136 - 145 mmol/L 2025 5:25 AM [facility] Potassium, Plasma 3.6 3.6 - 4.9 mmol/L 2025 5:25 AM [facility] Chloride, Plasma 102 97 - 107 mmol/L 2025 5:25 AM [facility] CO2, Plasma 23 22 - 29 mmol/L 2025 5:25 AM [facility] Anion Gap 8 6 - 16 mmol/L 2025 5:25 AM [facility] Total Calcium, Plasma 7.6(L) 8.9 - 10.2 mg/dL 2025 5:25 AM [facility] Total Protein 4.3(L) 6.3 - 7.9 g/dL 2025 5:25 AM [facility] Albumin, Plasma 2.6(L) 3.5 - 5.2 g/dL 2025 5:25 AM [facility] AST, Plasma 22 10 - 50 U/L 2025 5:25 AM [facility] ALT, Plasma 70(H) 10 - 50 U/L 2025 5:25 AM [facility] Alkaline Phosphatase, Plasma 107 40 - 115 U/L 2025 5:25 AM [facility] Total Bilirubin, Plasma 10.4(H) 0.2 - 1.1 mg/dL 2025 5:25 AM [facility] eGFRcr 71.2 mL/min/1.7 3m*2 2025 5:25 AM [facility] Comment:Reported eGFRcr in m L/min/1.73m2 is based the CKD-EPI 2020 equation that does not use a race coefficient. Blood Venous blood specimen / Unknown Venipuncture / Unknown 2025 4:51 AM EST 2025 4:57 AM EST us Maciel Olson MD LAB BLOOD ORDERABLES Final Resul t [facility] [address] [place] [address] * (ABNORMAL) CBC W/O Differential (2025 4:51 AM EST) WBC Count 5.23 3.70 - 10.30 10*3/uL LAB HEMATOLOGY METHOD 2025 5:10 AM EST [facility] RBC Count 2.49(L) 4.60 - 6.10 10*6/uL LAB HEMATOLOGY METHOD 2025 5:10 AM EST [facility] HGB 8.1(L) 13.7 - 17.5 g/dL LAB HEMATOLOGY METHOD 2025 5:10 AM EST [facility] HCT 24.3(L) 40.0 - 51.0 % LAB HEMATOLOGY METHOD 2025 5:10 AM EST [facility] Platelet Count 45(L) 155 - 369 10*3/uL LAB HEMATOLOGY METHOD 2025 5:10 AM EST [facility] MCV 98 79 - 98 fL LAB HEMATOLOGY METHOD 2025 5:10 AM EST [facility] MCH 32.5(H) 26.0 - 32.0 pg LAB HEMATOLOGY METHOD 2025 5:10 AM EST [facility] MCHC 33.3 30.7 - 35.5 g/dL LAB HEMATOLOGY METHOD 2025 5:10 AM EST [facility] RDW 23.5(H) 11.5 - 14.5 % LAB HEMATOLOGY METHOD 2025 5:10 AM EST [facility] MPV 10.7 8.8 - 12.5 fL LAB HEMATOLOGY METHOD 2025 5:10 AM EST [facility] nRBC 0.0 <=0.0 per 100 WBCs LAB HEMATOLOGY METHOD 2025 5:10 AM EST [facility] Blood Venous blood specimen / Unknown Venipuncture / Unknown 2025 4:51 AM EST 2025 4:57 AM EST Maciel Olson MD LAB BLOOD ORDERABLES Final Resul t Performing Organization Address [facility] de Phone Number [facility] [address] [place] [address] * (ABNORMAL) Prothrombin Time/INR (2025 4:51 AM EST) Prothrombin Time 15.1(H) 12.0 - 14.3 sec LAB COAGULATION METHOD 2025 5:18 AM EST [facility] INR 1.2(H) 0.9 - 1.1 LAB COAGULATION METHOD 2025 5:18 AM EST [facility] Blood Venous blood specimen / Unknown Venipuncture / Unknown 2025 4:51 AM EST 2025 4:58 AM EST Narrative [facility] - 2025 5:18 AM EST OPTIMAL INR RANGES FOR PATIENT ON ORAL ANTICOAGULANT THERAPY Prevention of venous thromboembolism INR 2.0 to 3.0 In patients with heart disease: Atrial fibrillation INR 2.0 to 3.0 Valvular heart disease INR 2.0 to 3.0 Tissue heart valves INR 2.0 to 3.0 Mechanical prosthetic valves INR 2.5 to 3.5 Prevention of recurrent VT INR 2.5 to 3.5 Maciel Olson MD LAB BLOOD ORDERABLES Final Resul t Performing Organization Address [facility] Co de Phone Number [facility] [address] [place] [address] * Tacrolimus (2025 4:51 AM EST) Tacrolimus 5.8 4.0 - 17.0 ng/mL 2025 12:28 PM EST [facility] Comment: Tacrolimus therapeutic range: Initial (<3 mo.) Maintenance Kidney 8-13 ng/mL 4-8 ng/mL Liver 8-13 ng/mL 4-8 ng/mL Heart 8-15 ng/mL 7-13 ng/mL Lung;Heart/Lung 8-17 ng/mL 8-13 ng/mL Blood Venous blood specimen / Unknown Venipuncture / Unknown 2025 4:51 AM EST 2025 4:57 AM EST Narrative [facility] - 2025 12:28 PM EST Test performed by LC-MS/MS at the [facility]. This test was developed and its performance characteristics determined by [facility]. It has not been cleared or approved by the FDA. The laboratory is regulated under CLIA as qualified to perform high-complexity testing. This test is used for clinical purposes. Test performed by LC-MS/MS at the [facility]. This test was developed and its performance characteristics determined by [facility]. It has not been cleared or approved by the FDA. The laboratory is regulated under CLIA as qualified to perform high-complexity testing. This test is used for clinical purposes. us Maciel Olson MD LAB BLOOD ORDERABLES Final Resul t [facility] [address] [place] [address] * (ABNORMAL) POCT glucose meter (01/11/2025 8:22 PM EST) POCT Glucose 111(H) 74 - 99 mg/dL 01/11/2025 8:24 PM EST [facility] Comment:Accuracy of a glucos e result [...] for testing. Comment 01/11/2025 8:24 PM EST [facility] Marketing Business Analyst ID Vida Garcia 01/11/2025 8:24 PM EST [facility] Device ID [id number] 01/11/2025 8:24 PM EST [facility] Specimen Type POC Capillary 01/11/2025 8:24 PM EST [facility] Blood Capillary blood specimen / Unknown 01/11/2025 8:22 PM EST 01/11/2025 8:24 PM EST Maciel Olson MD LAB POINT OF CARE TE ST DOCKED DEVICE UNSOLICITED RESULTS Final Result Performing Organization Address City/[facility] Co de Phone Number [facility] [address] [place] [address] * (ABNORMAL) POCT glucose meter (01/11/2025 4:54 PM EST) POCT Glucose 110(H) 74 - 99 mg/dL 01/11/2025 4:56 PM EST [facility] Comment:Accuracy of [...] 01/11/2025 4:56 PM EST [facility] Marketing Business Analyst ID Tila Garcia 4:56 PM EST [facility] Device ID [id number] 01/11/2025 4:56 PM EST [facility] Specimen Type POC Capillary 01/11/2025 4:56 PM EST [facility] Blood Capillary blood specimen / Unknown 01/11/2025 4:54 PM EST 01/11/2025 4:56 PM EST Maciel Olson MD LAB POINT OF CARE TE ST DOCKED DEVICE UNSOLICITED RESULTS Final Result Performing Organization Address City/[facility] de Phone Number [facility] [address] [place] [address] * (ABNORMAL) POCT glucose meter (01/11/2025 11:35 [...] 01/11/2025 11:37 AM EST [facility] Marketing Business Analyst ID Tila Garcia 11:37 AM EST [facility] Device ID [id number] 01/11/2025 11:37 AM EST [facility] Specimen Type POC Capillary 01/11/2025 11:37 AM EST [facility] Blood Capillary blood specimen / Unknown 01/11/2025 11:35 AM EST 01/11/2025 11:37 AM EST Maciel Olson MD LAB POINT OF CARE TE ST DOCKED DEVICE UNSOLICITED RESULTS Final Result Performing Organization Address City/[facility] Co de Phone Number [facility] [address] [place] [address] * POCT glucose meter (01/11/2025 8:06 AM EST) Pathologist [facility] POCT Glucose 91 74 - 99 mg/dL [...] Comment 01/11/2025 8:07 AM EST [facility] Marketing Business Analyst ID Tila Garcia 8:07 AM EST [facility] Device ID [id number] 01/11/2025 8:07 AM EST [facility] Specimen Type POC Capillary 01/11/2025 8:07 AM EST [facility] Blood Capillary blood specimen / Unknown 01/11/2025 8:06 AM EST 01/11/2025 8:07 AM EST us Maciel Olson MD LAB POINT OF CARE TE ST DOCKED DEVICE UNSOLICITED RESULTS Final Result Performing Organization Address City/[facility]/ZIP Co de Phone Number [facility] [address] [place] [address] * (ABNORMAL) Prothrombin Time/INR (01/11/2025 5:41 AM EST) Prothrombin Time 15.9(H) 12.0 - 14.3 sec LAB COAGULATION METHOD 01/11/2025 6:05 AM EST [facility] INR 1.2(H) 0.9 - 1.1 LAB COAGULATION METHOD 01/11/2025 6:05 AM EST [facility] Blood Venous blood specimen / Unknown Venipuncture / Unknown 01/11/2025 5:41 AM EST 01/11/2025 5:45 AM EST Narrative [facility] - 01/11/2025 6:05 AM EST OPTIMAL INR RANGES FOR PATIENT ON ORAL ANTICOAGULANT THERAPY Prevention of venous thromboembolism INR 2.0 to 3.0 In patients with heart disease: Atrial fibrillation INR 2.0 to 3.0 Valvular heart disease INR 2.0 to 3.0 Tissue heart valves INR 2.0 to 3.0 Mechanical prosthetic valves INR 2.5 to 3.5 Prevention of recurrent VT INR 2.5 to 3.5 Maciel Olson MD LAB BLOOD ORDERABLES Final Resul t Performing Organization Address City/[facility] Co de Phone Number [facility] [address] [place] [address] * Phosphorus (01/11/2025 4:49 AM EST) Phosphorus, Plasma 3.6 2.5 - 4.5 mg/dL 01/11/2025 5:30 AM EST [facility] Blood Venous blood specimen / Unknown Venipuncture / Unknown 01/11/2025 4:49 AM EST 01/11/2025 4:57 AM EST us Maciel Olson MD LAB BLOOD ORDERABLES Final Resul t [facility] [address] [place] [address] * (ABNORMAL) Magnesium (01/11/2025 4:49 AM EST) Magnesium, Plasma 1.6(L) 1.9 - 2.4 mg/dL 01/11/2025 5:30 AM EST [facility] Blood Venous blood specimen / Unknown Venipuncture / Unknown 01/11/2025 4:49 AM EST 01/11/2025 4:57 AM EST us Maciel Olson MD LAB BLOOD ORDERABLES Final Resul t [facility] [address] [place] [address] * (ABNORMAL) Comprehensive metabolic panel (01/11/2025 4:49 AM EST) Glucose, Plasma 81 74 - 99 mg/dL 01/11/2025 5:30 AM EST [facility] BUN, Plasma 31(H) 7 - 21 mg/dL 01/11/2025 5:30 AM EST [facility] Creatinine, Plasma 1.36(H) 0.70 - 1.20 mg/dL 01/11/2025 5:30 AM EST [facility] BUN/Creatinine Ratio 23 01/11/2025 5:30 AM EST [facility] Sodium, Plasma 137 136 - 145 mmol/L 01/11/2025 5:30 AM EST [facility] Potassium, Plasma 3.5(L) 3.6 - 4.9 mmol/L 01/11/2025 5:30 AM EST [facility] Chloride, Plasma 104 97 - 107 mmol/L 01/11/2025 5:30 AM EST [facility] CO2, Plasma 24 22 - 29 mmol/L 01/11/2025 5:30 AM EST [facility] Anion Gap 9 6 - 16 mmol/L 01/11/2025 5:30 AM EST [facility] Total Calcium, Plasma 7.8(L) 8.9 - 10.2 mg/dL 01/11/2025 5:30 AM EST [facility] Total Protein 4.4(L) 6.3 - 7.9 g/dL 01/11/2025 5:30 AM EST [facility] Albumin, Plasma 2.8(L) 3.5 - 5.2 g/dL 01/11/2025 5:30 AM EST [facility] AST, Plasma 31 10 - 50 U/L 01/11/2025 5:30 AM EST [facility] ALT, Plasma 88(H) 10 - 50 U/L 01/11/2025 5:30 AM EST [facility] Alkaline Phosphatase, Plasma 121(H) 40 - 115 U/L 01/11/2025 5:30 AM EST [facility] Total Bilirubin, Plasma 8.5(H) 0.2 - 1.1 mg/dL 01/11/2025 5:30 AM EST [facility] eGFRcr 65.4 mL/min/1.7 3m*2 01/11/2025 5:30 AM EST [facility] Comment:Reported eGFRcr in m L/min/1.73m2 is based the CKD-EPI 2020 equation that does not use a race coefficient. Blood Venous blood specimen / Unknown Venipuncture / Unknown 01/11/2025 4:49 AM EST 01/11/2025 4:57 AM EST us Maciel Olson MD LAB BLOOD ORDERABLES Final Resul t [facility] [address] [place] [address] * (ABNORMAL) CBC W/O Differential (01/11/2025 4:49 AM EST) WBC Count 6.42 3.70 - 10.30 10*3/uL LAB HEMATOLOGY METHOD 01/11/2025 5:07 AM EST [facility] RBC Count 2.57(L) 4.60 - 6.10 10*6/uL LAB HEMATOLOGY METHOD 01/11/2025 5:07 AM EST [facility] HGB 8.3(L) 13.7 - 17.5 g/dL LAB HEMATOLOGY METHOD 01/11/2025 5:07 AM EST [facility] HCT 24.6(L) 40.0 - 51.0 % LAB HEMATOLOGY METHOD 01/11/2025 5:07 AM EST [facility] Platelet Count 39(L) 155 - 369 10*3/uL LAB HEMATOLOGY METHOD 01/11/2025 5:07 AM EST [facility] MCV 96 79 - 98 fL LAB HEMATOLOGY METHOD 01/11/2025 5:07 AM EST [facility] MCH 32.3(H) 26.0 - 32.0 pg LAB HEMATOLOGY METHOD 01/11/2025 5:07 AM EST [facility] MCHC 33.7 30.7 - 35.5 g/dL LAB HEMATOLOGY METHOD 01/11/2025 5:07 AM EST [facility] RDW 22.6(H) 11.5 - 14.5 % LAB HEMATOLOGY METHOD 01/11/2025 5:07 AM EST [facility] MPV 10.2 8.8 - 12.5 fL LAB HEMATOLOGY METHOD 01/11/2025 5:07 AM EST [facility] nRBC 0.0 <=0.0 per 100 WBCs LAB HEMATOLOGY METHOD 01/11/2025 5:07 AM EST [facility] Blood Venous blood specimen / Unknown Venipuncture / Unknown 01/11/2025 4:49 AM EST 01/11/2025 4:57 AM EST us Maciel Olson MD LAB BLOOD ORDERABLES Final Resul t [facility] [address] [place] [address] * Tacrolimus (01/11/2025 4:49 AM EST) Tacrolimus 4.3 4.0 - 17.0 ng/mL 01/11/2025 12:36 PM EST [facility] Comment: Tacrolimus therapeutic range: Initial (<3 mo.) Maintenance Kidney 8-13 ng/mL 4-8 ng/mL Liver 8-13 ng/mL 4-8 ng/mL Heart 8-15 ng/mL 7-13 ng/mL Lung;Heart/Lung 8-17 ng/mL 8-13 ng/mL Blood Venous blood specimen / Unknown Venipuncture / Unknown 01/11/2025 4:49 AM EST 01/11/2025 4:57 AM EST Narrative [facility] - 01/11/2025 12:36 PM EST Test performed by LC-MS/MS at the [facility]. This test was developed and its performance characteristics determined by [facility]. It has not been cleared or approved by the FDA. The laboratory is regulated under CLIA as qualified to perform high-complexity testing. This test is used for clinical purposes. Test performed by LC-MS/MS at the [facility]. This test was developed and its performance characteristics determined by [facility]. It has not been cleared or approved by the FDA. The laboratory is regulated under CLIA as qualified to perform high-complexity testing. This test is used for clinical purposes. us Maciel Olson MD LAB BLOOD ORDERABLES Final Resul t Performing Organization Address City/[facility]/ZIP Co de Phone Number [facility] [address] [place] [address] * (ABNORMAL) POCT glucose meter (01/10/2025 8:42 PM EST) POCT Glucose 104(H) 74 - 99 mg/dL 01/10/2025 8:44 PM EST [facility] Comment:Accuracy of a [...] for testing. Comment 01/10/2025 8:44 PM EST [facility] Marketing Business Analyst ID Elver Medel 01/10/2025 8:44 PM EST [facility] Device ID [id number] 01/10/2025 8:44 PM EST [facility] Specimen Type POC Capillary 01/10/2025 8:44 PM EST [facility] Blood Capillary blood specimen / Unknown 01/10/2025 8:42 PM EST 01/10/2025 8:44 PM EST Maciel Olson MD LAB POINT OF CARE TE ST DOCKED DEVICE UNSOLICITED RESULTS Final Result Performing Organization Address City/[facility]/ZIP Co de Phone Number [facility] [address] [place] [address] * (ABNORMAL) POCT glucose meter (01/10/2025 5:02 [...] Comment 01/10/2025 5:03 PM EST [facility] Marketing Business Analyst ID Gaby Alfaro 01/10/2025 5:03 PM EST [facility] Device ID [id number] 01/10/2025 5:03 PM EST [facility] Specimen Type POC Capillary 01/10/2025 5:03 PM EST [facility] Blood Capillary blood specimen / Unknown 01/10/2025 5:02 PM EST 01/10/2025 5:03 PM EST us Maciel Olson MD LAB POINT OF CARE TE ST DOCKED DEVICE UNSOLICITED RESULTS Final Result Performing Organization Address City/State/[facility] Co de Phone Number [facility] [address] [place] [address] * MRCP w and wo IV Contrast [...] using the following sequences: coronal single shot [id number] fast spin echo, axial T2 weighted sequences [...] - 99 mg/dL 01/10/2025 11:28 AM EST [facility] Comment:Accuracy of a glucos e result [...] for testing. Comment 01/10/2025 11:28 AM EST [facility] Marketing Business Analyst ID Gaby Alfaro 01/10/2025 11:28 AM EST [facility] Device ID [id number] 01/10/2025 11:28 AM EST [facility] Specimen Type POC Capillary 01/10/2025 11:28 AM EST [facility] Blood Capillary blood specimen / Unknown 01/10/2025 11:27 AM EST 01/10/2025 11:28 AM EST us Maciel Olson MD LAB POINT OF CARE TE ST DOCKED DEVICE UNSOLICITED RESULTS Final Result [facility] [address] [place] [address] * (ABNORMAL) Comprehensive Metabolic Panel, Plasma (01/10/2025 9:38 AM EST) Glucose, Plasma 123(H) 74 - 99 mg/dL 01/10/2025 10:13 AM EST [facility] BUN, Plasma 43(H) 7 - 21 mg/dL 01/10/2025 10:13 AM EST [facility] Creatinine, Plasma 1.38(H) 0.70 - 1.20 mg/dL 01/10/2025 10:13 AM EST [facility] BUN/Creatinine Ratio 31 01/10/2025 10:13 AM EST [facility] Sodium, Plasma 136 136 - 145 mmol/L 01/10/2025 10:13 AM EST [facility] Potassium, Plasma 3.7 3.6 - 4.9 mmol/L 01/10/2025 10:13 AM EST [facility] Chloride, Plasma 102 97 - 107 mmol/L 01/10/2025 10:13 AM EST [facility] CO2, Plasma 24 22 - 29 mmol/L 01/10/2025 10:13 AM EST [facility] Anion Gap 10 6 - 16 mmol/L 01/10/2025 10:13 AM EST [facility] Total Calcium, Plasma 8.1(L) 8.9 - 10.2 mg/dL 01/10/2025 10:13 AM EST [facility] Total Protein 4.4(L) 6.3 - 7.9 g/dL 01/10/2025 10:13 AM EST [facility] Albumin, Plasma 2.8(L) 3.5 - 5.2 g/dL 01/10/2025 10:13 AM EST [facility] AST, Plasma 39 10 - 50 U/L 01/10/2025 10:13 AM EST [facility] ALT, Plasma 111(H) 10 - 50 U/L 01/10/2025 10:13 AM EST [facility] Alkaline Phosphatase, Plasma 125(H) 40 - 115 U/L 01/10/2025 10:13 AM EST [facility] Total Bilirubin, Plasma 6.1(H) 0.2 - 1.1 mg/dL 01/10/2025 10:13 AM EST [facility] eGFRcr 64.3 mL/min/1.7 3m*2 01/10/2025 10:13 AM EST [facility] Comment:Reported eGFRcr in m L/min/1.73m2 is based the CKD-EPI 2020 equation that does not use a race coefficient. Blood Venous blood specimen / Unknown Venipuncture / Unknown 01/10/2025 9:38 AM EST 01/10/2025 9:42 AM EST us Jude Peters MD LAB BLOOD ORDERABL ES Final Result [facility] [address] [place] [address] * POCT glucose meter (01/10/2025 7:30 AM EST) Pathologist [facility] POCT Glucose 99 74 - 99 mg/dL 01/10/2025 7:32 AM EST [facility] Comment:Accuracy of a glucos e result [...] Comment 01/10/2025 7:32 AM EST [facility] Marketing Business Analyst ID Gaby Alfaro 01/10/2025 7:32 AM EST [facility] Device ID [id number] 01/10/2025 7:32 AM EST [facility] Specimen Type POC Capillary 01/10/2025 7:32 AM EST [facility] Blood Capillary blood specimen / Unknown 01/10/2025 7:30 AM EST 01/10/2025 7:32 AM EST us Maciel Olson MD LAB POINT OF CARE TE ST DOCKED DEVICE UNSOLICITED RESULTS Final Result [facility] [address] [place] [address] * (ABNORMAL) POCT glucose meter (01/10/2025 6:14 AM EST) POCT Glucose 103(H) 74 - 99 mg/dL 01/10/2025 6:15 AM EST [facility] Comment:Accuracy of [...] for testing. Comment 01/10/2025 6:15 AM EST [facility] Marketing Business Analyst ID Anay Rodriguez 01/10/2025 6:15 AM EST [facility] Device ID [id number] 01/10/2025 6:15 AM EST [facility] Specimen Type POC Capillary 01/10/2025 6:15 AM EST [facility] Blood Capillary blood specimen / Unknown 01/10/2025 6:14 AM EST 01/10/2025 6:15 AM EST Maciel Olson MD LAB POINT OF CARE TE ST DOCKED DEVICE UNSOLICITED RESULTS Final Result [facility] [address] [place] [address] * POCT glucose meter (01/10/2025 5:23 AM EST) Pathologist [facility] POCT Glucose 83 74 - 99 mg/dL [...] for testing. Comment 01/10/2025 5:25 AM EST [facility] Marketing Business Analyst ID Anay Rodriguez 01/10/2025 5:25 AM EST [facility] Device ID [id number] 01/10/2025 5:25 AM EST [facility] Specimen Type POC Capillary 01/10/2025 5:25 AM EST [facility] Blood Capillary blood specimen / Unknown 01/10/2025 5:23 AM EST 01/10/2025 5:25 AM EST us Maciel Olson MD LAB POINT OF CARE TE ST DOCKED DEVICE UNSOLICITED RESULTS Final Result Performing Organization Address City/[facility]/ZIP Co de Phone Number [facility] [address] [place] [address] * Phosphorus (01/10/2025 5:13 AM EST) Phosphorus, Plasma 3.8 2.5 - 4.5 mg/dL 01/10/2025 5:49 AM EST [facility] Blood Venous blood specimen / Unknown Venipuncture / Unknown 01/10/2025 5:13 AM EST 01/10/2025 5:20 AM EST us Maciel Olson MD LAB BLOOD ORDERABLES Final Resul t Performing Organization Address City/[facility]/ZIP Co de Phone Number [facility] [address] [place] [address] * (ABNORMAL) Magnesium (01/10/2025 5:13 AM EST) Magnesium, Plasma 1.5(L) 1.9 - 2.4 mg/dL 01/10/2025 5:49 AM EST [facility] Blood Venous blood specimen / Unknown Venipuncture / Unknown 01/10/2025 5:13 AM EST 01/10/2025 5:20 AM EST us Maciel Olson MD LAB BLOOD ORDERABLES Final Resul t Performing Organization Address City/[facility]/ZIP Co de Phone Number [facility] [address] [place] [address] * (ABNORMAL) Comprehensive metabolic panel (01/10/2025 5:13 AM EST) Glucose, Plasma 79 74 - 99 mg/dL 01/10/2025 5:49 AM EST [facility] BUN, Plasma 44(H) 7 - 21 mg/dL 01/10/2025 5:49 AM [facility] Creatinine, Plasma 1.44(H) 0.70 - 1.20 mg/dL 01/10/2025 5:49 AM [facility] BUN/Creatinine Ratio 31 01/10/2025 5:49 AM [facility] Sodium, Plasma 136 136 - 145 mmol/L 01/10/2025 5:49 AM [facility] Potassium, Plasma 3.7 3.6 - 4.9 mmol/L 01/10/2025 5:49 AM [facility] Chloride, Plasma 101 97 - 107 mmol/L 01/10/2025 5:49 AM [facility] CO2, Plasma 23 22 - 29 mmol/L 01/10/2025 5:49 AM [facility] Anion Gap 12 6 - 16 mmol/L 01/10/2025 5:49 AM [facility] Total Calcium, Plasma 8.3(L) 8.9 - 10.2 mg/dL 01/10/2025 5:49 AM [facility] Total Protein 4.8(L) 6.3 - 7.9 g/dL 01/10/2025 5:49 AM [facility] Albumin, Plasma 3.1(L) 3.5 - 5.2 g/dL 01/10/2025 5:49 AM [facility] AST, Plasma 49 10 - 50 U/L 01/10/2025 5:49 AM [facility] ALT, Plasma 126(H) 10 - 50 U/L 01/10/2025 5:49 AM [facility] Alkaline Phosphatase, Plasma 127(H) 40 - 115 U/L 01/10/2025 5:49 AM [facility] Total Bilirubin, Plasma 5.2(H) 0.2 - 1.1 mg/dL 01/10/2025 5:49 AM [facility] eGFRcr 61.1 mL/min/1.7 3m*2 01/10/2025 5:49 AM [facility] Comment:Reported eGFRcr in m L/min/1.73m2 is based the CKD-EPI 2020 equation that does not use a race coefficient. Blood Venous blood specimen / Unknown Venipuncture / Unknown 01/10/2025 5:13 AM EST 01/10/2025 5:20 AM EST us Maciel Olson MD LAB BLOOD ORDERABLES Final Resul t [facility] [address] [place] [address] * (ABNORMAL) CBC W/O Differential (01/10/2025 5:13 AM EST) WBC Count 6.97 3.70 - 10.30 10*3/uL LAB HEMATOLOGY METHOD 01/10/2025 5:29 AM EST [facility] RBC Count 3.03(L) 4.60 - 6.10 10*6/uL LAB HEMATOLOGY METHOD 01/10/2025 5:29 AM EST [facility] HGB 9.4(L) 13.7 - 17.5 g/dL LAB HEMATOLOGY METHOD 01/10/2025 5:29 AM EST [facility] HCT 28.1(L) 40.0 - 51.0 % LAB HEMATOLOGY METHOD 01/10/2025 5:29 AM EST [facility] Platelet Count 44(L) 155 - 369 10*3/uL LAB HEMATOLOGY METHOD 01/10/2025 5:29 AM EST [facility] MCV 93 79 - 98 fL LAB HEMATOLOGY METHOD 01/10/2025 5:29 AM EST [facility] MCH 31.0 26.0 - 32.0 pg LAB HEMATOLOGY METHOD 01/10/2025 5:29 AM EST [facility] MCHC 33.5 30.7 - 35.5 g/dL LAB HEMATOLOGY METHOD 01/10/2025 5:29 AM EST [facility] RDW 21.7(H) 11.5 - 14.5 % LAB HEMATOLOGY METHOD 01/10/2025 5:29 AM EST [facility] MPV 11.5 8.8 - 12.5 fL LAB HEMATOLOGY METHOD 01/10/2025 5:29 AM EST [facility] nRBC 0.0 <=0.0 per 100 WBCs LAB HEMATOLOGY METHOD 01/10/2025 5:29 AM EST [facility] Blood Venous blood specimen / Unknown Venipuncture / Unknown 01/10/2025 5:13 AM EST 01/10/2025 5:20 AM EST Maciel Olson MD LAB BLOOD ORDERABLES Final Resul t Performing Organization Address [facility] Co de Phone Number [facility] [address] [place] [address] * (ABNORMAL) Prothrombin Time/INR (01/10/2025 5:13 AM EST) Prothrombin Time 16.0(H) 12.0 - 14.3 sec LAB COAGULATION METHOD 01/10/2025 5:35 AM EST [facility] INR 1.3(H) 0.9 - 1.1 LAB COAGULATION METHOD 01/10/2025 5:35 AM EST [facility] Blood Venous blood specimen / Unknown Venipuncture / Unknown 01/10/2025 5:13 AM EST 01/10/2025 5:20 AM EST Narrative [facility] - 01/10/2025 5:35 AM EST OPTIMAL INR RANGES FOR PATIENT ON ORAL ANTICOAGULANT THERAPY Prevention of venous thromboembolism INR 2.0 to 3.0 In patients with heart disease: Atrial fibrillation INR 2.0 to 3.0 Valvular heart disease INR 2.0 to 3.0 Tissue heart valves INR 2.0 to 3.0 Mechanical prosthetic valves INR 2.5 to 3.5 Prevention of recurrent VT INR 2.5 to 3.5 Maciel Olson MD LAB BLOOD ORDERABLES Final Resul t Performing Organization Address City/[facility] Co de Phone Number [facility] [address] [place] [address] * (ABNORMAL) Tacrolimus (01/10/2025 5:13 AM EST) Tacrolimus 3.4(L) 4.0 - 17.0 ng/mL 01/10/2025 11:55 AM EST [facility] Comment: Tacrolimus therapeutic range: Initial (<3 mo.) Maintenance Kidney 8-13 ng/mL 4-8 ng/mL Liver 8-13 ng/mL 4-8 ng/mL Heart 8-15 ng/mL 7-13 ng/mL Lung;Heart/Lung 8-17 ng/mL 8-13 ng/mL Blood Venous blood specimen / Unknown Venipuncture / Unknown 01/10/2025 5:13 AM EST 01/10/2025 5:19 AM EST Narrative [facility] - 01/10/2025 11:55 AM EST Test performed by LC-MS/MS at the [facility]. This test was developed and its performance characteristics determined by [facility]. It has not been cleared or approved by the FDA. The laboratory is regulated under CLIA as qualified to perform high-complexity testing. This test is used for clinical purposes. Test performed by LC-MS/MS at the [facility]. This test was developed and its performance characteristics determined by [facility]. It has not been cleared or approved by the FDA. The laboratory is regulated under CLIA as qualified to perform high-complexity testing. This test is used for clinical purposes. Maciel Olson MD LAB BLOOD ORDERABLES Final Resul t [facility] [address] [place] [address] * POCT glucose meter (01/10/2025 12:35 AM EST) POCT Glucose 93 74 - 99 mg/dL 01/10/2025 12:37 AM EST [facility] Comment:Accuracy of a glucos e result [...] 01/10/2025 12:37 AM EST [facility] Marketing Business Analyst ID Michael Anay 01/10/2025 12:37 AM EST [facility] Device ID [id number] 01/10/2025 12:37 AM EST [facility] Specimen Type POC Capillary 01/10/2025 12:37 AM EST [facility] Blood Capillary blood specimen / Unknown 01/10/2025 12:35 AM EST 01/10/2025 12:37 AM EST Maciel Olson MD LAB POINT OF CARE TE ST DOCKED DEVICE UNSOLICITED RESULTS Final Result Performing Organization Address City/[facility] Co de Phone Number [facility] [address] [place] [address] * POCT glucose meter (01/10/2025 12:05 AM EST) POCT Glucose 87 74 - 99 mg/dL 01/10/2025 12:06 AM EST [facility] Comment:Accuracy of a glucos e result [...] for testing. Comment 01/10/2025 12:06 AM EST [facility] Marketing Business Analyst ID Anay Rodriguez 01/10/2025 12:06 AM EST [facility] Device ID [id number] 01/10/2025 12:06 AM EST [facility] Specimen Type POC Capillary 01/10/2025 12:06 AM EST [facility] Blood Capillary blood specimen / Unknown 01/10/2025 12:05 AM EST 01/10/2025 12:06 AM EST Maciel Olson MD LAB POINT OF CARE TE ST DOCKED DEVICE UNSOLICITED RESULTS Final Result Performing Organization Address City/[facility] Co de Phone Number [facility] [address] [place] [address] * (ABNORMAL) POCT glucose meter (01/09/2025 7:52 [...] 01/09/2025 7:53 PM EST [facility] Marketing Business Analyst ID Shaina Haines 01/09/2025 7:53 PM EST [facility] Device ID [id number] 01/09/2025 7:53 PM EST [facility] Specimen Type POC Capillary 01/09/2025 7:53 PM EST [facility] Blood Capillary blood specimen / Unknown 01/09/2025 7:52 PM EST 01/09/2025 7:53 PM EST us Maciel Olson MD LAB POINT OF CARE TE ST DOCKED DEVICE UNSOLICITED RESULTS Final Result Performing Organization Address City/[facility]/ZIP Co de Phone Number [facility] [address] [place] [address] * POCT glucose meter (01/09/2025 5:02 PM EST) Pathologist [facility] POCT Glucose 99 74 - 99 mg/dL [...] 01/09/2025 5:03 PM EST [facility] Marketing Business Analyst ID Dominic Canchola 01/09/2025 5:03 PM EST [facility] Device ID [id number] 01/09/2025 5:03 PM EST [facility] Specimen Type POC Capillary 01/09/2025 5:03 PM EST [facility] Blood Capillary blood specimen / Unknown 01/09/2025 5:02 PM EST 01/09/2025 5:03 PM EST us Maciel Olson MD LAB POINT OF CARE TE ST DOCKED DEVICE UNSOLICITED RESULTS Final Result [facility] [address] [place] [address] * (ABNORMAL) POCT glucose meter (01/09/2025 11:23 AM EST) POCT Glucose 152(H) 74 - 99 mg/dL 01/09/2025 11:25 AM EST [facility] Comment:Accuracy of a [...] for testing. Comment 01/09/2025 11:25 AM EST [facility] Marketing Business Analyst ID Dominic Canchola 01/09/2025 11:25 AM EST [facility] Device ID [id number] 01/09/2025 11:25 AM EST [facility] Specimen Type POC Capillary 01/09/2025 11:25 AM EST [facility] Blood Capillary blood specimen / Unknown 01/09/2025 11:23 AM EST 01/09/2025 11:25 AM EST Maciel Olson MD LAB POINT OF CARE TE ST DOCKED DEVICE UNSOLICITED RESULTS Final Result Performing Organization Address City/State/[facility] Co de Phone Number [facility] [address] [place] [address] * (ABNORMAL) POCT glucose meter (01/09/2025 8:00 AM EST) POCT Glucose 125(H) 74 - 99 mg/dL 01/09/2025 8:02 AM EST [facility] Comment:Accuracy of a [...] 01/09/2025 8:02 AM EST [facility] Marketing Business Analyst ID Dominic Canchola 01/09/2025 8:02 AM EST [facility] Device ID [id number] 01/09/2025 8:02 AM EST [facility] Specimen Type POC Capillary 01/09/2025 8:02 AM EST [facility] Blood Capillary blood specimen / Unknown 01/09/2025 8:00 AM EST 01/09/2025 8:02 AM EST us Maciel Olson MD LAB POINT OF CARE TE ST DOCKED DEVICE UNSOLICITED RESULTS Final Result Performing Organization Address City/[facility] Co de Phone Number [facility] [address] [place] [address] * (ABNORMAL) POCT glucose meter (01/09/2025 5:38 AM EST) POCT Glucose 116(H) 74 - 99 mg/dL 01/09/2025 5:39 AM EST [facility] Comment:Accuracy of a glucos e result [...] for testing. Comment 01/09/2025 5:39 AM EST [facility] Marketing Business Analyst ID Elver Medel 01/09/2025 5:39 AM EST [facility] Device ID [id number] 01/09/2025 5:39 AM EST [facility] Specimen Type POC Capillary 01/09/2025 5:39 AM EST [facility] Blood Capillary blood specimen / Unknown 01/09/2025 5:38 AM EST 01/09/2025 5:39 AM EST us Maciel Olson MD LAB POINT OF CARE TE ST DOCKED DEVICE UNSOLICITED RESULTS Final Result Performing Organization Address City/[facility] Co de Phone Number [facility] [address] [place] [address] * Phosphorus (01/09/2025 5:13 AM EST) Phosphorus, Plasma 3.0 2.5 - 4.5 mg/dL 01/09/2025 6:59 AM EST [facility] Blood Venous blood specimen / Unknown 01/09/2025 5:13 AM EST 01/09/2025 5:13 AM EST us Maciel Olson MD LAB BLOOD ORDERABLES Final Resul t Performing Organization Address City/[facility]/ZIP Co de Phone Number [facility] [address] [place] [address] * Magnesium (01/09/2025 5:13 AM EST) Magnesium, Plasma 1.9 1.9 - 2.4 mg/dL 01/09/2025 6:59 AM EST [facility] Blood Venous blood specimen / Unknown 01/09/2025 5:13 AM EST 01/09/2025 5:13 AM EST us Maciel Olson MD LAB BLOOD ORDERABLES Final Resul t [facility] [address] [place] [address] * (ABNORMAL) Comprehensive metabolic panel (01/09/2025 5:13 AM EST) Glucose, Plasma 96 74 - 99 mg/dL 01/09/2025 6:59 AM EST [facility] BUN, Plasma 55(H) 7 - 21 mg/dL 01/09/2025 6:59 AM EST [facility] Creatinine, Plasma 1.67(H) 0.70 - 1.20 mg/dL 01/09/2025 6:59 AM EST [facility] BUN/Creatinine Ratio 33 01/09/2025 6:59 AM EST [facility] Sodium, Plasma 135(L) 136 - 145 mmol/L 01/09/2025 6:59 AM EST [facility] Potassium, Plasma 4.1 3.6 - 4.9 mmol/L 01/09/2025 6:59 AM EST [facility] Chloride, Plasma 107 97 - 107 mmol/L 01/09/2025 6:59 AM EST [facility] CO2, Plasma 20(L) 22 - 29 mmol/L 01/09/2025 6:59 AM EST [facility] Anion Gap 8 6 - 16 mmol/L 01/09/2025 6:59 AM EST [facility] Total Calcium, Plasma 8.2(L) 8.9 - 10.2 mg/dL 01/09/2025 6:59 AM EST [facility] Total Protein 4.6(L) 6.3 - 7.9 g/dL 01/09/2025 6:59 AM EST [facility] Albumin, Plasma 2.9(L) 3.5 - 5.2 g/dL 01/09/2025 6:59 AM EST [facility] AST, Plasma 45 10 - 50 U/L 01/09/2025 6:59 AM EST [facility] Comment:Hemolyzed, result ma y be falsely increased. ALT, Plasma 112(H) 10 - 50 U/L 01/09/2025 6:59 AM EST [facility] Alkaline Phosphatase, Plasma 68 40 - 115 U/L 01/09/2025 6:59 AM EST [facility] Total Bilirubin, Plasma 2.8(H) 0.2 - 1.1 mg/dL 01/09/2025 6:59 AM EST [facility] eGFRcr 51.1 mL/min/1.7 3m*2 01/09/2025 6:59 AM EST [facility] Comment:Reported eGFRcr in m L/min/1.73m2 is based the CKD-EPI 2020 equation that does not use a race coefficient. Blood Venous blood specimen / Unknown 01/09/2025 5:13 AM EST 01/09/2025 5:13 AM EST us Maciel Olson MD LAB BLOOD ORDERABLES Final Resul t [facility] [address] [place] [address] * (ABNORMAL) CBC W/O Differential (01/09/2025 5:13 AM EST) WBC Count 5.04 3.70 - 10.30 10*3/uL LAB HEMATOLOGY METHOD 01/09/2025 7:00 AM EST [facility] RBC Count 2.75(L) 4.60 - 6.10 10*6/uL LAB HEMATOLOGY METHOD 01/09/2025 7:00 AM EST [facility] HGB 8.6(L) 13.7 - 17.5 g/dL LAB HEMATOLOGY METHOD 01/09/2025 7:00 AM EST [facility] HCT 25.7(L) 40.0 - 51.0 % LAB HEMATOLOGY METHOD 01/09/2025 7:00 AM EST [facility] Platelet Count 44(L) 155 - 369 10*3/uL LAB HEMATOLOGY METHOD 01/09/2025 7:00 AM EST [facility] MCV 94 79 - 98 fL LAB HEMATOLOGY METHOD 01/09/2025 7:00 AM EST [facility] MCH 31.3 26.0 - 32.0 pg LAB HEMATOLOGY METHOD 01/09/2025 7:00 AM EST [facility] MCHC 33.5 30.7 - 35.5 g/dL LAB HEMATOLOGY METHOD 01/09/2025 7:00 AM EST [facility] RDW 21.1(H) 11.5 - 14.5 % LAB HEMATOLOGY METHOD 01/09/2025 7:00 AM EST [facility] MPV 10.8 8.8 - 12.5 fL LAB HEMATOLOGY METHOD 01/09/2025 7:00 AM EST [facility] nRBC 0.0 <=0.0 per 100 WBCs LAB HEMATOLOGY METHOD 01/09/2025 7:00 AM EST [facility] Blood Venous blood specimen / Unknown 01/09/2025 5:13 AM EST 01/09/2025 5:13 AM EST Maciel Olson MD LAB BLOOD ORDERABLES Final Resul t Performing Organization Address City/[facility] Co de Phone Number [facility] [address] [place] [address] * Lavender Top (01/09/2025 5:13 AM EST) Extra Hold for add-ons 01/09/2025 8:01 AM EST [facility] Comment:Auto resulted. Blood Venous blood specimen / Unknown 01/09/2025 5:13 AM EST 01/09/2025 5:13 AM EST us Maciel Olson MD LAB BLOOD ORDERABLES Final Resul t Performing Organization Address City/[facility]/ZIP Co de Phone Number [facility] [address] [place] [address] * Light Green Top (01/09/2025 5:13 AM EST) Extra Hold for add-ons 01/09/2025 8:01 AM EST [facility] Comment:Auto resulted. Blood Venous blood specimen / Unknown 01/09/2025 5:13 AM EST 01/09/2025 5:13 AM EST Maciel Olson MD LAB BLOOD ORDERABLES Final Resul t Performing Organization Address City/[facility]/ZIP Co de Phone Number [facility] [address] [place] [address] * (ABNORMAL) Prothrombin Time/INR (01/09/2025 5:07 AM EST) Prothrombin Time 16.0(H) 12.0 - 14.3 sec LAB COAGULATION METHOD 01/09/2025 5:50 AM EST [facility] INR 1.2(H) 0.9 - 1.1 LAB COAGULATION METHOD 01/09/2025 5:50 AM EST [facility] Blood Venous blood specimen / Unknown Venipuncture / Unknown 01/09/2025 5:07 AM EST 01/09/2025 5:12 AM EST Narrative [facility] - 01/09/2025 5:50 AM EST OPTIMAL INR RANGES FOR PATIENT ON ORAL ANTICOAGULANT THERAPY Prevention of venous thromboembolism INR 2.0 to 3.0 In patients with heart disease: Atrial fibrillation INR 2.0 to 3.0 Valvular heart disease INR 2.0 to 3.0 Tissue heart valves INR 2.0 to 3.0 Mechanical prosthetic valves INR 2.5 to 3.5 Prevention of recurrent VT INR 2.5 to 3.5 us Maciel Olson MD LAB BLOOD ORDERABLES Final Resul t [facility] [address] [place] [address] * Tacrolimus (01/09/2025 5:07 AM EST) Tacrolimus 4.0 4.0 - 17.0 ng/mL 01/09/2025 1:21 PM EST [facility] Comment: Tacrolimus therapeutic range: Initial (<3 mo.) Maintenance Kidney 8-13 ng/mL 4-8 ng/mL Liver 8-13 ng/mL 4-8 ng/mL Heart 8-15 ng/mL 7-13 ng/mL Lung;Heart/Lung 8-17 ng/mL 8-13 ng/mL Blood Venous blood specimen / Unknown Venipuncture / Unknown 01/09/2025 5:07 AM EST 01/09/2025 5:12 AM EST Narrative [facility] - 01/09/2025 1:21 PM EST Test performed by LC-MS/MS at the [facility]. This test was developed and its performance characteristics determined by [facility]. It has not been cleared or approved by the FDA. The laboratory is regulated under CLIA as qualified to perform high-complexity testing. This test is used for clinical purposes. Test performed by LC-MS/MS at the [facility]. This test was developed and its performance characteristics determined by [facility]. It has not been cleared or approved by the FDA. The laboratory is regulated under CLIA as qualified to perform high-complexity testing. This test is used for clinical purposes. us Maciel Olson MD LAB BLOOD ORDERABLES Final Resul t Performing Organization Address City/State/[facility] Co de Phone Number [facility] [address] [place] [id number] * (ABNORMAL) POCT glucose meter (01/08/2025 11:28 PM EST) POCT Glucose 111(H) 74 - 99 mg/dL 01/08/2025 11:30 PM EST [facility] Comment:Accuracy of a glucos e result [...] for testing. Comment 01/08/2025 11:30 PM EST [facility] Marketing Business Analyst ID Elver Medel 01/08/2025 11:30 PM EST [facility] Device ID [id number] 01/08/2025 11:30 PM EST [facility] Specimen Type POC Capillary 01/08/2025 11:30 PM EST [facility] Blood Capillary blood specimen / Unknown 01/08/2025 11:28 PM EST 01/08/2025 11:30 PM EST us Maciel Olson MD LAB POINT OF CARE TE ST DOCKED DEVICE UNSOLICITED RESULTS Final Result Performing Organization Address City/[facility] Co de Phone Number [facility] [address] [place] [address] * (ABNORMAL) POCT glucose meter (01/08/2025 8:09 PM EST) POCT Glucose 115(H) 74 - 99 mg/dL [...] for testing. Comment 01/08/2025 8:11 PM EST [facility] Marketing Business Analyst ID Elver Medel 01/08/2025 8:11 PM EST [facility] Device ID [id number] 01/08/2025 8:11 PM EST [facility] Specimen Type POC Capillary 01/08/2025 8:11 PM EST [facility] Blood Capillary blood specimen / Unknown 01/08/2025 8:09 PM EST 01/08/2025 8:11 PM EST us Maciel Olson MD LAB POINT OF CARE TE ST DOCKED DEVICE UNSOLICITED RESULTS Final Result Performing Organization Address City/[facility]/ZIP Co de Phone Number [facility] [address] [place] [address] * (ABNORMAL) POCT glucose meter (01/08/2025 5:11 PM EST) POCT Glucose 118(H) 74 - 99 [...] 01/08/2025 5:13 PM EST [facility] Marketing Business Analyst ID India Schultz 01/08/2025 5:13 PM EST [facility] Device ID [id number] 01/08/2025 5:13 PM EST [facility] Specimen Type POC Capillary 01/08/2025 5:13 PM EST [facility] Blood Capillary blood specimen / Unknown 01/08/2025 5:11 PM EST 01/08/2025 5:13 PM EST Maciel Olson MD LAB POINT OF CARE TE ST DOCKED DEVICE UNSOLICITED RESULTS Final Result Performing Organization Address City/State/[facility] Co de Phone Number [facility] [address] [place] [address] * XR Chest 1 View (01/08/2025 12:15 PM EST) Anatomical Region Laterality Modality Chest Digital Radiogra phy Impressions 01/08/2025 1:37 PM EST No significant interval change. CRITICAL RESULT: No. COMMUNICATION: Per this written report. Drafted by Hermila Tapia MD on 01/08/2025 1:36 PM Final report signed by Hremila Tapia MD on 01/08/2025 1:37 PM Narrative [...] - 99 mg/dL 01/08/2025 11:32 AM EST [facility] Comment:Accuracy of a glucos e result [...] for testing. Comment 01/08/2025 11:32 AM EST [facility] Marketing Business Analyst ID India Schultz 01/08/2025 11:32 AM EST [facility] Device ID [id number] 01/08/2025 11:32 AM EST [facility] Specimen Type POC Capillary 01/08/2025 11:32 AM EST [facility] Blood Capillary blood specimen / Unknown 01/08/2025 11:30 AM EST 01/08/2025 11:32 AM EST us Maciel Olson MD LAB POINT OF CARE TE ST DOCKED DEVICE UNSOLICITED RESULTS Final Result Performing Organization Address City/State/[facility] Co de Phone Number [facility] [address] [place] [address] * Phosphorus, Plasma (01/08/2025 8:21 AM EST) Phosphorus, Plasma 3.1 2.5 - 4.5 mg/dL 01/08/2025 8:56 AM EST [facility] Blood Venous blood specimen / Unknown Venipuncture / Unknown 01/08/2025 8:21 AM EST 01/08/2025 8:27 AM EST us Maciel Olson MD LAB BLOOD ORDERABLES Final Resul t [facility] [address] [place] [address] * (ABNORMAL) CBC and Differential (01/08/2025 8:21 AM EST) WBC Count 5.64 3.70 - 10.30 10*3/uL LAB HEMATOLOGY METHOD 01/08/2025 8:34 AM EST [facility] RBC Count 2.85(L) 4.60 - 6.10 10*6/uL LAB HEMATOLOGY METHOD 01/08/2025 8:34 AM EST [facility] HGB 8.8(L) 13.7 - 17.5 g/dL LAB HEMATOLOGY METHOD 01/08/2025 8:34 AM EST [facility] HCT 25.8(L) 40.0 - 51.0 % LAB HEMATOLOGY METHOD 01/08/2025 8:34 AM EST [facility] Platelet Count 50(L) 155 - 369 10*3/uL LAB HEMATOLOGY METHOD 01/08/2025 8:34 AM EST [facility] MCV 91 79 - 98 fL LAB HEMATOLOGY METHOD 01/08/2025 8:34 AM EST [facility] MCH 30.9 26.0 - 32.0 pg LAB HEMATOLOGY METHOD 01/08/2025 8:34 AM EST [facility] MCHC 34.1 30.7 - 35.5 g/dL LAB HEMATOLOGY METHOD 01/08/2025 8:34 AM EST [facility] RDW 20.4(H) 11.5 - 14.5 % LAB HEMATOLOGY METHOD 01/08/2025 8:34 AM EST [facility] MPV 10.0 8.8 - 12.5 fL LAB HEMATOLOGY METHOD 01/08/2025 8:34 AM EST [facility] nRBC 0.0 <=0.0 per 100 WBCs LAB HEMATOLOGY METHOD 01/08/2025 8:34 AM EST [facility] Differential Type Automated LAB HEMATOLOGY METHOD 01/08/2025 8:34 AM EST [facility] Neutrophils % 79 % LAB HEMATOLOGY METHOD 01/08/2025 8:34 AM EST [facility] Lymphocytes % 5 % LAB HEMATOLOGY METHOD 01/08/2025 8:34 AM EST [facility] Monocytes % 15 % LAB HEMATOLOGY METHOD 01/08/2025 8:34 AM EST [facility] Eosinophils % 0 % LAB HEMATOLOGY METHOD 01/08/2025 8:34 AM EST [facility] Basophils % 0 % LAB HEMATOLOGY METHOD 01/08/2025 8:34 AM EST [facility] Immature Granulocytes % 1 % LAB HEMATOLOGY METHOD 01/08/2025 8:34 AM EST [facility] Neutrophils Absolute 4.50 1.60 - 6.10 10*3/uL LAB HEMATOLOGY METHOD 01/08/2025 8:34 AM EST [facility] Lymphocytes Absolute 0.28(L) 1.20 - 3.90 10*3/uL LAB HEMATOLOGY METHOD 01/08/2025 8:34 AM EST [facility] Monocytes Absolute 0.82 0.30 - 0.90 10*3/uL LAB HEMATOLOGY METHOD 01/08/2025 8:34 AM EST [facility] Eosinophils Absolute 0.01 0.00 - 0.50 10*3/uL LAB HEMATOLOGY METHOD 01/08/2025 8:34 AM EST [facility] Basophils Absolute 0.00 0.00 - 0.10 10*3/uL LAB HEMATOLOGY METHOD 01/08/2025 8:34 AM EST [facility] Immature Granulocytes Absolute 0.03 0.00 - 0.06 10*3/uL LAB HEMATOLOGY METHOD 01/08/2025 8:34 AM EST [facility] Blood Venous blood specimen / Unknown Venipuncture / Unknown 01/08/2025 8:21 AM EST 01/08/2025 8:27 AM EST Narrative [facility] - 01/08/2025 8:34 AM EST Therapeutic decision making should be based on absolute values, rather than percentages. us Maciel Olson MD LAB BLOOD ORDERABLES Final Resul t [facility] [address] [place] [address] * (ABNORMAL) Comprehensive metabolic panel (01/08/2025 8:21 AM EST) Glucose, Plasma 113(H) 74 - 99 mg/dL 01/08/2025 8:56 AM EST [facility] BUN, Plasma 65(H) 7 - 21 mg/dL 01/08/2025 8:56 AM EST [facility] Creatinine, Plasma 1.82(H) 0.70 - 1.20 mg/dL 01/08/2025 8:56 AM EST [facility] BUN/Creatinine Ratio 36 01/08/2025 8:56 AM EST [facility] Sodium, Plasma 136 136 - 145 mmol/L 01/08/2025 8:56 AM EST [facility] Potassium, Plasma 4.3 3.6 - 4.9 mmol/L 01/08/2025 8:56 AM EST [facility] Chloride, Plasma 107 97 - 107 mmol/L 01/08/2025 8:56 AM EST [facility] CO2, Plasma 19(L) 22 - 29 mmol/L 01/08/2025 8:56 AM EST [facility] Anion Gap 10 6 - 16 mmol/L 01/08/2025 8:56 AM EST [facility] Total Calcium, Plasma 8.2(L) 8.9 - 10.2 mg/dL 01/08/2025 8:56 AM EST [facility] Total Protein 4.8(L) 6.3 - 7.9 g/dL 01/08/2025 8:56 AM EST [facility] Albumin, Plasma 2.9(L) 3.5 - 5.2 g/dL 01/08/2025 8:56 AM EST [facility] AST, Plasma 44 10 - 50 U/L 01/08/2025 8:56 AM EST [facility] ALT, Plasma 104(H) 10 - 50 U/L 01/08/2025 8:56 AM EST [facility] Alkaline Phosphatase, Plasma 71 40 - 115 U/L 01/08/2025 8:56 AM EST [facility] Total Bilirubin, Plasma 2.9(H) 0.2 - 1.1 mg/dL 01/08/2025 8:56 AM EST [facility] eGFRcr 46.1 mL/min/1.7 3m*2 01/08/2025 8:56 AM EST [facility] Comment:Reported eGFRcr in m L/min/1.73m2 is based the CKD-EPI 2020 equation that does not use a race coefficient. Blood Venous blood specimen / Unknown Venipuncture / Unknown 01/08/2025 8:21 AM EST 01/08/2025 8:27 AM EST us Maciel Olson MD LAB BLOOD ORDERABLES Final Resul t Performing Organization Address City/[facility]/ZIP Co de Phone Number [facility] [address] [place] [address] * Magnesium, Plasma (01/08/2025 8:21 AM EST) Pathologist [facility] Magnesium, Plasma 2.3 1.9 - 2.4 mg/dL 01/08/2025 8:[address] [facility] Blood Venous blood specimen / Unknown Venipuncture / Unknown 01/08/2025 8:21 AM EST 01/08/2025 8:27 AM EST Maciel Olson MD LAB BLOOD ORDERABLES Final Resul t Performing Organization Address City/[facility] Co de Phone Number [facility] [address] [place] [address] * (ABNORMAL) POCT glucose meter (01/08/2025 8:04 AM EST) [facility] POCT Glucose 122(H) 74 - 99 [...] 01/08/2025 8:14 AM EST [facility] Marketing Business Analyst ID MichaelsIndia Gan 01/08/2025 8:14 AM EST [facility] Device ID [id number] 01/08/2025 8:14 AM EST [facility] Specimen Type POC Capillary 01/08/2025 8:14 AM EST [facility] Blood Capillary blood specimen / Unknown 01/08/2025 8:04 AM EST 01/08/2025 8:14 AM EST Maciel Olson MD LAB POINT OF CARE TE ST DOCKED DEVICE UNSOLICITED RESULTS Final Result Performing Organization Address City/[facility] Co de Phone Number [facility] [address] [place] [address] * (ABNORMAL) POCT glucose meter (01/08/2025 6:36 AM EST) POCT Glucose 125(H) 74 - 99 mg/dL 01/08/2025 6:41 AM EST [facility] Comment:Accuracy of a glucos e result [...] for testing. Comment 01/08/2025 6:41 AM EST [facility] Marketing Business Analyst ID Zachery Villarreal 01/08/2025 6:41 AM EST [facility] Device ID [id number] 01/08/2025 6:41 AM EST [facility] Specimen Type POC Capillary 01/08/2025 6:41 AM EST [facility] Blood Capillary blood specimen / Unknown 01/08/2025 6:36 AM EST 01/08/2025 6:41 AM EST Maciel Olson MD LAB POINT OF CARE TE ST DOCKED DEVICE UNSOLICITED RESULTS Final Result Performing Organization Address City/[facility] Co de Phone Number [facility] [address] [place] [address] * Tacrolimus (01/08/2025 5:05 AM EST) Tacrolimus 5.8 4.0 - 17.0 ng/mL 01/08/2025 1:07 PM EST [facility] Comment: Tacrolimus therapeutic range: Initial (<3 mo.) Maintenance Kidney 8-13 ng/mL 4-8 ng/mL Liver 8-13 ng/mL 4-8 ng/mL Heart 8-15 ng/mL 7-13 ng/mL Lung;Heart/Lung 8-17 ng/mL 8-13 ng/mL Blood Venous blood specimen / Unknown Venipuncture / Unknown 01/08/2025 5:05 AM EST 01/08/2025 5:11 AM EST Narrative [facility] - 01/08/2025 1:07 PM EST Test performed by LC-MS/MS at the [facility]. This test was developed and its performance characteristics determined by [facility]. It has not been cleared or approved by the FDA. The laboratory is regulated under CLIA as qualified to perform high-complexity testing. This test is used for clinical purposes. Test performed by LC-MS/MS at the [facility]. This test was developed and its performance characteristics determined by [facility]. It has not been cleared or approved by the FDA. The laboratory is regulated under CLIA as qualified to perform high-complexity testing. This test is used for clinical purposes. Maciel Olson MD LAB BLOOD ORDERABLES Final Resul t Performing Organization Address City/State/[facility] Co de Phone Number [facility] [address] [place] [address] * (ABNORMAL) Prothrombin Time/INR (01/08/2025 5:04 AM EST) Prothrombin Time 16.1(H) 12.0 - 14.3 sec LAB COAGULATION METHOD 01/08/2025 5:33 AM EST [facility] INR 1.3(H) 0.9 - 1.1 LAB COAGULATION METHOD 01/08/2025 5:33 AM EST [facility] Blood Venous blood specimen / Unknown Venipuncture / Unknown 01/08/2025 5:04 AM EST 01/08/2025 5:11 AM EST Narrative [facility] - 01/08/2025 5:33 AM EST OPTIMAL INR RANGES FOR PATIENT ON ORAL ANTICOAGULANT THERAPY Prevention of venous thromboembolism INR 2.0 to 3.0 In patients with heart disease: Atrial fibrillation INR 2.0 to 3.0 Valvular heart disease INR 2.0 to 3.0 Tissue heart valves INR 2.0 to 3.0 Mechanical prosthetic valves INR 2.5 to 3.5 Prevention of recurrent VT INR 2.5 to 3.5 us Maciel B Olson MD LAB BLOOD ORDERABLES Final Resul t Performing Organization Address City/[facility]/ZIP Co de Phone Number [facility] [address] [place] [address] * Lavender Top (01/08/2025 4:56 AM EST) Extra Hold for add-ons 01/08/2025 8:01 AM EST [facility] Comment:Auto resulted. Blood Venous blood specimen / Unknown 01/08/2025 4:56 AM EST 01/08/2025 5:11 AM EST us Maciel Olson MD LAB BLOOD ORDERABLES Final Resul t Performing Organization Address [facility] Co de Phone Number [facility] [address] [place] [address] * (ABNORMAL) POCT glucose meter (01/07/2025 11:52 PM EST) Pathologist [facility] POCT Glucose 135(H) 74 - 99 mg/dL 01/08/2025 12:00 AM EST [facility] Comment:Accuracy of a glucos e result [...] for testing. Comment 01/08/2025 12:00 AM EST [facility] Marketing Business Analyst ID Darryl Kinsey 025 12:00 AM EST [facility] Device ID [id number] 01/08/2025 12:00 AM EST [facility] Specimen Type POC Capillary 01/08/2025 12:00 AM EST [facility] Blood Capillary blood specimen / Unknown 01/07/2025 11:52 PM EST 01/08/2025 12:00 AM EST us Maciel Olson MD LAB POINT OF CARE TE ST DOCKED DEVICE UNSOLICITED RESULTS Final Result Performing Organization Address City/[facility]/ZIP Co de Phone Number [facility] [address] [place] [address] * (ABNORMAL) POCT glucose meter (01/07/2025 8:57 PM EST) Pathologist [facility] POCT Glucose 119(H) 74 - 99 mg/dL [...] Comment 01/07/2025 8:59 PM EST [facility] Marketing Business Analyst ID Darryl Kinsey 025 8:59 PM EST [facility] Device ID [id number] 01/07/2025 8:59 PM EST [facility] Specimen Type POC Capillary 01/07/2025 8:59 PM EST [facility] Blood Capillary blood specimen / Unknown 01/07/2025 8:57 PM EST 01/07/2025 8:59 PM EST Maciel Olson MD LAB POINT OF CARE TE ST DOCKED DEVICE UNSOLICITED RESULTS Final Result Performing Organization Address City/[facility]/ZIP Co de Phone Number [facility] [address] [place] [address] * Phosphorus, Plasma (01/07/2025 5:54 PM EST) [facility] Phosphorus, Plasma 3.7 2.5 - 4.5 mg/dL 01/07/2025 6:33 PM EST [facility] Blood Venous blood specimen / Unknown Venipuncture / Unknown 01/07/2025 5:54 PM EST 01/07/2025 6:02 PM EST us Maciel Olson MD LAB BLOOD ORDERABLES Final Resul t [facility] [address] [place] [address] * Magnesium, Plasma (01/07/2025 5:54 PM EST) [facility] Magnesium, Plasma 2.4 1.9 - 2.4 mg/dL 01/07/2025 6:33 PM EST [facility] Blood Venous blood specimen / Unknown Venipuncture / Unknown 01/07/2025 5:54 PM EST 01/07/2025 6:02 PM EST us Maciel Olson MD LAB BLOOD ORDERABLES Final Resul t [facility] [address] [place] [address] * (ABNORMAL) Comprehensive metabolic panel (01/07/2025 5:54 PM EST) Glucose, Plasma 159(H) 74 - 99 mg/dL 01/07/2025 6:33 PM EST [facility] BUN, Plasma 67(H) 7 - 21 mg/dL 01/07/2025 6:33 PM EST [facility] Creatinine, Plasma 1.89(H) 0.70 - 1.20 mg/dL 01/07/2025 6:33 PM EST [facility] BUN/Creatinine Ratio 35 01/07/2025 6:33 PM EST [facility] Sodium, Plasma 132(L) 136 - 145 mmol/L 01/07/2025 6:33 PM EST [facility] Potassium, Plasma 5.0(H) 3.6 - 4.9 mmol/L 01/07/2025 6:33 PM EST [facility] Chloride, Plasma 104 97 - 107 mmol/L 01/07/2025 6:33 PM EST [facility] CO2, Plasma 17(L) 22 - 29 mmol/L 01/07/2025 6:33 PM EST [facility] Anion Gap 11 6 - 16 mmol/L 01/07/2025 6:33 PM EST [facility] Total Calcium, Plasma 8.1(L) 8.9 - 10.2 mg/dL 01/07/2025 6:33 PM EST [facility] Total Protein 4.9(L) 6.3 - 7.9 g/dL 01/07/2025 6:33 PM EST [facility] Albumin, Plasma 3.0(L) 3.5 - 5.2 g/dL 01/07/2025 6:33 PM EST [facility] AST, Plasma 47 10 - 50 U/L 01/07/2025 6:33 PM EST [facility] Comment:Hemolyzed, result ma y be falsely increased. ALT, Plasma 104(H) 10 - 50 U/L 01/07/2025 6:33 PM EST [facility] Alkaline Phosphatase, Plasma 78 40 - 115 U/L 01/07/2025 6:33 PM EST [facility] Total Bilirubin, Plasma 3.1(H) 0.2 - 1.1 mg/dL 01/07/2025 6:33 PM EST [facility] eGFRcr 44.1 mL/min/1.7 3m*2 01/07/2025 6:33 PM EST [facility] Comment:Reported eGFRcr in m L/min/1.73m2 is based the CKD-EPI 2020 equation that does not use a race coefficient. Blood Venous blood specimen / Unknown Venipuncture / Unknown 01/07/2025 5:54 PM EST 01/07/2025 6:02 PM EST us Maciel Olson MD LAB BLOOD ORDERABLES Final Resul t [facility] [address] [place] [address] * (ABNORMAL) CBC and Differential (01/07/2025 5:54 PM EST) WBC Count 3.86 3.70 - 10.30 10*3/uL LAB HEMATOLOGY METHOD 01/07/2025 6:16 PM EST [facility] RBC Count 2.81(L) 4.60 - 6.10 10*6/uL LAB HEMATOLOGY METHOD 01/07/2025 6:16 PM EST [facility] HGB 8.7(L) 13.7 - 17.5 g/dL LAB HEMATOLOGY METHOD 01/07/2025 6:16 PM EST [facility] HCT 25.8(L) 40.0 - 51.0 % LAB HEMATOLOGY METHOD 01/07/2025 6:16 PM EST [facility] Platelet Count 48(L) 155 - 369 10*3/uL LAB HEMATOLOGY METHOD 01/07/2025 6:16 PM [facility] MCV 92 79 - 98 fL LAB HEMATOLOGY METHOD 01/07/2025 6:16 PM [facility] MCH 31.0 26.0 - 32.0 pg LAB HEMATOLOGY METHOD 01/07/2025 6:16 PM [facility] MCHC 33.7 30.7 - 35.5 g/dL LAB HEMATOLOGY METHOD 01/07/2025 6:16 PM [facility] RDW 20.0(H) 11.5 - 14.5 % LAB HEMATOLOGY METHOD 01/07/2025 6:16 PM [facility] MPV 10.4 8.8 - 12.5 fL LAB HEMATOLOGY METHOD 01/07/2025 6:16 PM [facility] nRBC 0.0 <=0.0 per 100 WBCs LAB HEMATOLOGY METHOD 01/07/2025 6:16 PM [facility] Differential Type Automated LAB HEMATOLOGY METHOD 01/07/2025 6:16 PM [facility] Neutrophils % 87 % LAB HEMATOLOGY METHOD 01/07/2025 6:16 PM [facility] Lymphocytes % 6 % LAB HEMATOLOGY METHOD 01/07/2025 6:16 PM [facility] Monocytes % 6 % LAB HEMATOLOGY METHOD 01/07/2025 6:16 PM [facility] Eosinophils % 0 % LAB HEMATOLOGY METHOD 01/07/2025 6:16 PM [facility] Basophils % 0 % LAB HEMATOLOGY METHOD 01/07/2025 6:16 PM [facility] Immature Granulocytes % 1 % LAB HEMATOLOGY METHOD 01/07/2025 6:16 PM [facility] Neutrophils Absolute 3.39 1.60 - 6.10 10*3/uL LAB HEMATOLOGY METHOD 01/07/2025 6:16 PM [facility] Lymphocytes Absolute 0.22(L) 1.20 - 3.90 10*3/uL LAB HEMATOLOGY METHOD 01/07/2025 6:16 PM [facility] Monocytes Absolute 0.22(L) 0.30 - 0.90 10*3/uL LAB HEMATOLOGY METHOD 01/07/2025 6:16 PM [facility] Eosinophils Absolute 0.00 0.00 - 0.50 10*3/uL LAB HEMATOLOGY METHOD 01/07/2025 6:16 PM [facility] Basophils Absolute 0.00 0.00 - 0.10 10*3/uL LAB HEMATOLOGY METHOD 01/07/2025 6:16 PM EST [facility] Immature Granulocytes Absolute 0.03 0.00 - 0.06 10*3/uL LAB HEMATOLOGY METHOD 01/07/2025 6:16 PM EST [facility] Blood Venous blood specimen / Unknown Venipuncture / Unknown 01/07/2025 5:54 PM EST 01/07/2025 6:04 PM EST Narrative [facility] - 01/07/2025 6:16 PM EST Therapeutic decision making should be based on absolute values, rather than percentages. Maciel Olson MD LAB BLOOD ORDERABLES Final Resul t Performing Organization Address City/[facility]/ZIP Co de Phone Number [facility] [address] [place] [id number] * (ABNORMAL) POCT glucose meter (01/07/2025 5:35 PM EST) [facility] Signature POCT Glucose 169(H) 74 - 99 mg/dL 01/07/2025 5:37 PM EST [facility] Comment:Accuracy of a glucos e result [...] for testing. Comment 01/07/2025 5:37 PM EST [facility] Marketing Business Analyst ID India Schultz 01/07/2025 5:37 PM EST [facility] Device ID [id number] 01/07/2025 5:37 PM EST [facility] Specimen Type POC Capillary 01/07/2025 5:37 PM EST [facility] Blood Capillary blood specimen / Unknown 01/07/2025 5:35 PM EST 01/07/2025 5:37 PM EST Maciel Olson MD LAB POINT OF CARE TE ST DOCKED DEVICE UNSOLICITED RESULTS Final Result Performing Organization Address City/[facility]/ZIP Co de Phone Number [facility] [address] [place] [address] * (ABNORMAL) POCT glucose meter (01/07/2025 11:37 AM EST) [facility] POCT Glucose 130(H) 74 - 99 mg/dL [...] for testing. Comment 01/07/2025 11:38 AM EST [employer] [facility] Marketing Business Analyst ID Avinash Schultzrey 01/07/2025 11:38 AM EST [employer] [facility] Device ID [id number] 01/07/2025 11:38 AM EST [facility] Specimen Type POC Capillary 01/07/2025 11:38 AM EST [facility] Blood Capillary blood specimen / Unknown 01/07/2025 11:37 AM EST 01/07/2025 11:38 AM EST Maciel Olson MD LAB POINT OF CARE TE ST DOCKED DEVICE UNSOLICITED RESULTS Final Result [facility] [address] [place] [address] * POCT glucose meter (01/07/2025 8:14 AM EST) [facility] POCT Glucose 91 74 - 99 mg/dL 01/07/2025 8:15 AM EST [facility] Comment:Accuracy of a glucos e result [...] for testing. Comment 01/07/2025 8:15 AM EST [facility] Marketing Business Analyst ID India Schultz 01/07/2025 8:15 AM EST [facility] Device ID [id number] 01/07/2025 8:15 AM EST [facility] Specimen Type POC Capillary 01/07/2025 8:15 AM EST [facility] Blood Capillary blood specimen / Unknown 01/07/2025 8:14 AM EST 01/07/2025 8:15 AM EST us Maciel Olson MD LAB POINT OF CARE TE ST DOCKED DEVICE UNSOLICITED RESULTS Final Result Performing Organization Address City/[facility]/ZIP Co de Phone Number [facility] [address] [place] [address] * Phosphorus, Plasma (01/07/2025 7:31 AM EST) Phosphorus, Plasma 4.4 2.5 - 4.5 mg/dL 01/07/2025 8:09 AM EST [facility] Blood Venous blood specimen / Unknown Venipuncture / Unknown 01/07/2025 7:31 AM EST 01/07/2025 7:39 AM EST us Maciel Olson MD LAB BLOOD ORDERABLES Final Resul t Performing Organization Address City/[facility] Co de Phone Number [facility] [address] [place] [address] * (ABNORMAL) Magnesium, Plasma (01/07/2025 7:31 AM EST) Magnesium, Plasma 2.6(H) 1.9 - 2.4 mg/dL 01/07/2025 8:09 AM EST [facility] Blood Venous blood specimen / Unknown Venipuncture / Unknown 01/07/2025 7:31 AM EST 01/07/2025 7:39 AM EST us Maciel Olson MD LAB BLOOD ORDERABLES Final Resul t Performing Organization Address City/[facility] Co de Phone Number [facility] [address] [place] [address] * (ABNORMAL) Comprehensive metabolic panel (01/07/2025 7:31 AM EST) Glucose, Plasma 98 74 - 99 mg/dL 01/07/2025 8:09 AM EST [facility] BUN, Plasma 71(H) 7 - 21 mg/dL 01/07/2025 8:09 AM [facility] Creatinine, Plasma 2.10(H) 0.70 - 1.20 mg/dL 01/07/2025 8:09 AM [facility] BUN/Creatinine Ratio 34 01/07/2025 8:09 AM [facility] Sodium, Plasma 133(L) 136 - 145 mmol/L 01/07/2025 8:09 AM [facility] Potassium, Plasma 5.0(H) 3.6 - 4.9 mmol/L 01/07/2025 8:09 AM [facility] Chloride, Plasma 104 97 - 107 mmol/L 01/07/2025 8:09 AM [facility] CO2, Plasma 18(L) 22 - 29 mmol/L 01/07/2025 8:09 AM [facility] Anion Gap 11 6 - 16 mmol/L 01/07/2025 8:09 AM [facility] Total Calcium, Plasma 8.2(L) 8.9 - 10.2 mg/dL 01/07/2025 8:09 AM [facility] Total Protein 4.7(L) 6.3 - 7.9 g/dL 01/07/2025 8:09 AM [facility] Albumin, Plasma 2.9(L) 3.5 - 5.2 g/dL 01/07/2025 8:09 AM [facility] AST, Plasma 45 10 - 50 U/L 01/07/2025 8:09 AM [facility] ALT, Plasma 96(H) 10 - 50 U/L 01/07/2025 8:09 AM [facility] Alkaline Phosphatase, Plasma 69 40 - 115 U/L 01/07/2025 8:09 AM [facility] Total Bilirubin, Plasma 3.2(H) 0.2 - 1.1 mg/dL 01/07/2025 8:09 AM [facility] eGFRcr 38.8 mL/min/1.7 3m*2 01/07/2025 8:09 AM [facility] Comment:Reported eGFRcr in m L/min/1.73m2 is based the CKD-EPI 2020 equation that does not use a race coefficient. Blood Venous blood specimen / Unknown Venipuncture / Unknown 01/07/2025 7:31 AM EST 01/07/2025 7:39 AM EST us Maciel Olson MD LAB BLOOD ORDERABLES Final Resul t [facility] [address] [place] [address] * (ABNORMAL) CBC and Differential (01/07/2025 7:31 AM EST) WBC Count 5.55 3.70 - 10.30 10*3/uL LAB HEMATOLOGY METHOD 01/07/2025 7:46 AM EST [facility] RBC Count 2.74(L) 4.60 - 6.10 10*6/uL LAB HEMATOLOGY METHOD 01/07/2025 7:46 AM EST [facility] HGB 8.6(L) 13.7 - 17.5 g/dL LAB HEMATOLOGY METHOD 01/07/2025 7:46 AM EST [facility] HCT 24.8(L) 40.0 - 51.0 % LAB HEMATOLOGY METHOD 01/07/2025 7:46 AM EST [facility] Platelet Count 49(L) 155 - 369 10*3/uL LAB HEMATOLOGY METHOD 01/07/2025 7:46 AM EST [facility] MCV 91 79 - 98 fL LAB HEMATOLOGY METHOD 01/07/2025 7:46 AM EST [facility] MCH 31.4 26.0 - 32.0 pg LAB HEMATOLOGY METHOD 01/07/2025 7:46 AM EST [facility] MCHC 34.7 30.7 - 35.5 g/dL LAB HEMATOLOGY METHOD 01/07/2025 7:46 AM EST [facility] RDW 20.3(H) 11.5 - 14.5 % LAB HEMATOLOGY METHOD 01/07/2025 7:46 AM EST [facility] MPV 11.1 8.8 - 12.5 fL LAB HEMATOLOGY METHOD 01/07/2025 7:46 AM EST [facility] nRBC 0.0 <=0.0 per 100 WBCs LAB HEMATOLOGY METHOD 01/07/2025 7:46 AM EST [facility] Differential Type Automated LAB HEMATOLOGY METHOD 01/07/2025 7:46 AM EST [facility] Neutrophils % 76 % LAB HEMATOLOGY METHOD 01/07/2025 7:46 AM EST [facility] Lymphocytes % 7 % LAB HEMATOLOGY METHOD 01/07/2025 7:46 AM EST [facility] Monocytes % 16 % LAB HEMATOLOGY METHOD 01/07/2025 7:46 AM EST [facility] Eosinophils % 0 % LAB HEMATOLOGY METHOD 01/07/2025 7:46 AM EST [facility] Basophils % 0 % LAB HEMATOLOGY METHOD 01/07/2025 7:46 AM EST [facility] Immature Granulocytes % 1 % LAB HEMATOLOGY METHOD 01/07/2025 7:46 AM EST [facility] Neutrophils Absolute 4.26 1.60 - 6.10 10*3/uL LAB HEMATOLOGY METHOD 01/07/2025 7:46 AM EST [facility] Lymphocytes Absolute 0.38(L) 1.20 - 3.90 10*3/uL LAB HEMATOLOGY METHOD 01/07/2025 7:46 AM EST [facility] Monocytes Absolute 0.88 0.30 - 0.90 10*3/uL LAB HEMATOLOGY METHOD 01/07/2025 7:46 AM EST [facility] Eosinophils Absolute 0.00 0.00 - 0.50 10*3/uL LAB HEMATOLOGY METHOD 01/07/2025 7:46 AM EST [facility] Basophils Absolute 0.00 0.00 - 0.10 10*3/uL LAB HEMATOLOGY METHOD 01/07/2025 7:46 AM EST [facility] Immature Granulocytes Absolute 0.03 0.00 - 0.06 10*3/uL LAB HEMATOLOGY METHOD 01/07/2025 7:46 AM EST [facility] Blood Venous blood specimen / Unknown Venipuncture / Unknown 01/07/2025 7:31 AM EST 01/07/2025 7:38 AM EST [facility] - 01/07/2025 7:46 AM EST Therapeutic decision making should be based on absolute values, rather than percentages. us Maciel Olson MD LAB BLOOD ORDERABLES Final Resul t [facility] [address] [place] [address] * (ABNORMAL) POCT glucose meter (01/07/2025 6:02 [...] Comment 01/07/2025 7:17 AM EST [facility] Marketing Business Analyst ID Darryl Kinsey 025 7:17 AM EST [facility] LAB Device ID [id number] 01/07/2025 7:17 AM EST [facility] Specimen Type POC Capillary 01/07/2025 7:17 AM EST [facility] Blood Capillary blood specimen / Unknown 01/07/2025 6:02 AM EST 01/07/2025 7:17 AM EST Maciel Olson MD LAB POINT OF CARE TE ST DOCKED DEVICE UNSOLICITED RESULTS Final Result [facility] [address] [place] [address] * Tacrolimus (01/07/2025 4:38 AM EST) Tacrolimus 11.1 4.0 - 17.0 ng/mL 01/07/2025 8:41 AM EST [facility] Comment: Tacrolimus therapeutic range: Initial (<3 mo.) Maintenance Kidney 8-13 ng/mL 4-8 ng/mL Liver 8-13 ng/mL 4-8 ng/mL Heart 8-15 ng/mL 7-13 ng/mL Lung;Heart/Lung 8-17 ng/mL 8-13 ng/mL Blood Venous blood specimen / Unknown Venipuncture / Unknown 01/07/2025 4:38 AM EST 01/07/2025 4:57 AM EST Narrative [facility] - 01/07/2025 8:41 AM EST Test performed by LC-MS/MS at the [facility]. This test was developed and its performance characteristics determined by [facility]. It has not been cleared or approved by the FDA. The laboratory is regulated under CLIA as qualified to perform high-complexity testing. This test is used for clinical purposes. Test performed by LC-MS/MS at the [facility]. This test was developed and its performance characteristics determined by [facility]. It has not been cleared or approved by the FDA. The laboratory is regulated under CLIA as qualified to perform high-complexity testing. This test is used for clinical purposes. Maciel Olson MD LAB BLOOD ORDERABLES Final Resul t Performing Organization Address City/[facility]/ZIP Co de Phone Number [facility] [address] [place] [address] * (ABNORMAL) POCT glucose meter (01/07/2025 12:56 AM EST) [facility] POCT Glucose 107(H) 74 - 99 mg/dL 01/07/2025 12:57 AM EST [facility] Comment:Accuracy of a glucos e result [...] for testing. Comment 01/07/2025 12:57 AM EST [facility] Marketing Business Analyst ID Isabel Shepherd 025 12:57 AM EST [facility] Device ID [id number] 01/07/2025 12:57 AM EST [facility] Specimen Type POC Venous 01/07/2025 12:57 AM EST [facility] Blood Venous blood specimen / Unknown 01/07/2025 12:56 AM EST 01/07/2025 12:57 AM EST Maciel Olson MD LAB POINT OF CARE TE ST DOCKED DEVICE UNSOLICITED RESULTS Final Result Performing Organization Address City/[facility]/ZIP Co de Phone Number [facility] [address] [place] [address] * (ABNORMAL) Prothrombin Time/INR (01/07/2025 12:56 AM EST) Prothrombin Time 16.5(H) 12.0 - 14.3 sec LAB COAGULATION METHOD 01/07/2025 1:30 AM EST [facility] INR 1.3(H) 0.9 - 1.1 LAB COAGULATION METHOD 01/07/2025 1:[address] [facility] Blood Blood sample taken from central line / Unknown (Central Line) Existing Catheter / Unknown 01/07/2025 12:56 AM EST 01/07/2025 1:01 AM EST Narrative [facility] - 01/07/2025 1:30 AM EST OPTIMAL INR RANGES FOR PATIENT ON ORAL ANTICOAGULANT THERAPY Prevention of venous thromboembolism INR 2.0 to 3.0 In patients with heart disease: Atrial fibrillation INR 2.0 to 3.0 Valvular heart disease INR 2.0 to 3.0 Tissue heart valves INR 2.0 to 3.0 Mechanical prosthetic valves INR 2.5 to 3.5 Prevention of recurrent VT INR 2.5 to 3.5 us Maciel Olson MD LAB BLOOD ORDERABLES Final Resul t [facility] [address] [place] [address] * (ABNORMAL) POCT glucose meter (01/06/2025 6:00 PM EST) POCT Glucose 130(H) 74 - 99 mg/dL 01/06/2025 6:01 PM EST [facility] Comment:Accuracy of a glucos e result [...] for testing. Comment 01/06/2025 6:01 PM EST [facility] Marketing Business Analyst ID Galileo Abdi 6:01 PM EST [facility] Device ID [id number] 01/06/2025 6:01 PM EST [facility] Specimen Type POC Venous 01/06/2025 6:01 PM EST [facility] Blood Venous blood specimen / Unknown 01/06/2025 6:00 PM EST 01/06/2025 6:01 PM EST us Maciel Olson MD LAB POINT OF CARE TE ST DOCKED DEVICE UNSOLICITED RESULTS Final Result Performing Organization Address City/[facility]/ZIP Co de Phone Number [facility] [address] [place] [address] * (ABNORMAL) Phosphorus, Plasma (01/06/2025 6:00 PM EST) Phosphorus, Plasma 5.2(H) 2.5 - 4.5 mg/dL 01/06/2025 6:53 PM EST [facility] Blood Venous blood specimen / Unknown Venipuncture / Unknown 01/06/2025 6:00 PM EST 01/06/2025 6:21 PM EST us Maciel Olson MD LAB BLOOD ORDERABLES Final Resul t Performing Organization Address City/[facility]/ZIP Co de Phone Number [facility] [address] [place] [address] * (ABNORMAL) Magnesium, Plasma (01/06/2025 6:00 PM EST) Magnesium, Plasma 2.6(H) 1.9 - 2.4 mg/dL 01/06/2025 6:53 PM EST [facility] Blood Venous blood specimen / Unknown Venipuncture / Unknown 01/06/2025 6:00 PM EST 01/06/2025 6:21 PM EST us Maciel Olson MD LAB BLOOD ORDERABLES Final Resul t [facility] [address] [place] [address] * (ABNORMAL) Comprehensive metabolic panel (01/06/2025 6:00 PM EST) Glucose, Plasma 121(H) 74 - 99 mg/dL 01/06/2025 6:53 PM EST [facility] BUN, Plasma 67(H) 7 - 21 mg/dL 01/06/2025 6:53 PM [facility] Creatinine, Plasma 2.27(H) 0.70 - 1.20 mg/dL 01/06/2025 6:53 PM [facility] BUN/Creatinine Ratio 30 01/06/2025 6:53 PM [facility] Sodium, Plasma 129(L) 136 - 145 mmol/L 01/06/2025 6:53 PM [facility] Potassium, Plasma 4.9 3.6 - 4.9 mmol/L 01/06/2025 6:53 PM [facility] Chloride, Plasma 101 97 - 107 mmol/L 01/06/2025 6:53 PM [facility] CO2, Plasma 17(L) 22 - 29 mmol/L 01/06/2025 6:53 PM [facility] Anion Gap 11 6 - 16 mmol/L 01/06/2025 6:53 PM [facility] Total Calcium, Plasma 8.3(L) 8.9 - 10.2 mg/dL 01/06/2025 6:53 PM [facility] Total Protein 5.0(L) 6.3 - 7.9 g/dL 01/06/2025 6:53 PM [facility] Albumin, Plasma 3.2(L) 3.5 - 5.2 g/dL 01/06/2025 6:53 PM [facility] AST, Plasma 51(H) 10 - 50 U/L 01/06/2025 6:53 PM [facility] [facility] ALT, Plasma 107(H) 10 - 50 U/L 01/06/2025 6:53 PM [facility] Alkaline Phosphatase, Plasma 72 40 - 115 U/L 01/06/2025 6:53 PM [facility] Total Bilirubin, Plasma 3.7(H) 0.2 - 1.1 mg/dL 01/06/2025 6:53 PM [facility] eGFRcr 35.4 mL/min/1.7 3m*2 01/06/2025 6:53 PM [facility] Comment:Reported eGFRcr in m L/min/1.73m2 is based the CKD-EPI 2020 equation that does not use a race coefficient. Blood Venous blood specimen / Unknown Venipuncture / Unknown 01/06/2025 6:00 PM EST 01/06/2025 6:21 PM EST us Maciel Olson MD LAB BLOOD ORDERABLES Final Resul t [facility] [address] [place] [address] * (ABNORMAL) CBC and Differential (01/06/2025 6:00 PM EST) WBC Count 5.07 3.70 - 10.30 10*3/uL LAB HEMATOLOGY METHOD 01/06/2025 6:40 PM EST [facility] RBC Count 2.93(L) 4.60 - 6.10 10*6/uL LAB HEMATOLOGY METHOD 01/06/2025 6:40 PM EST [facility] HGB 9.1(L) 13.7 - 17.5 g/dL LAB HEMATOLOGY METHOD 01/06/2025 6:40 PM EST [facility] HCT 26.3(L) 40.0 - 51.0 % LAB HEMATOLOGY METHOD 01/06/2025 6:40 PM EST [facility] Platelet Count 55(L) 155 - 369 10*3/uL LAB HEMATOLOGY METHOD 01/06/2025 6:40 PM EST [facility] MCV 90 79 - 98 fL LAB HEMATOLOGY METHOD 01/06/2025 6:40 PM EST [facility] MCH 31.1 26.0 - 32.0 pg LAB HEMATOLOGY METHOD 01/06/2025 6:40 PM EST [facility] MCHC 34.6 30.7 - 35.5 g/dL LAB HEMATOLOGY METHOD 01/06/2025 6:40 PM EST [facility] RDW 20.1(H) 11.5 - 14.5 % LAB HEMATOLOGY METHOD 01/06/2025 6:40 PM EST [facility] MPV 10.6 8.8 - 12.5 fL LAB HEMATOLOGY METHOD 01/06/2025 6:40 PM EST [facility] nRBC 0.0 <=0.0 per 100 WBCs LAB HEMATOLOGY METHOD 01/06/2025 6:40 PM EST [facility] Differential Type Automated LAB HEMATOLOGY METHOD 01/06/2025 6:40 PM EST [facility] Neutrophils % 86 % LAB HEMATOLOGY METHOD 01/06/2025 6:40 PM EST [facility] Lymphocytes % 5 % LAB HEMATOLOGY METHOD 01/06/2025 6:40 PM EST [facility] Monocytes % 8 % LAB HEMATOLOGY METHOD 01/06/2025 6:40 PM EST [facility] Eosinophils % 0 % LAB HEMATOLOGY METHOD 01/06/2025 6:40 PM EST [facility] Basophils % 0 % LAB HEMATOLOGY METHOD 01/06/2025 6:40 PM EST [facility] Immature Granulocytes % 1 % LAB HEMATOLOGY METHOD 01/06/2025 6:40 PM EST [facility] Neutrophils Absolute 4.41 1.60 - 6.10 10*3/uL LAB HEMATOLOGY METHOD 01/06/2025 6:40 PM EST [facility] Lymphocytes Absolute 0.24(L) 1.20 - 3.90 10*3/uL LAB HEMATOLOGY METHOD 01/06/2025 6:40 PM EST [facility] Monocytes Absolute 0.39 0.30 - 0.90 10*3/uL LAB HEMATOLOGY METHOD 01/06/2025 6:40 PM EST [facility] Eosinophils Absolute 0.00 0.00 - 0.50 10*3/uL LAB HEMATOLOGY METHOD 01/06/2025 6:40 PM EST [facility] Basophils Absolute 0.00 0.00 - 0.10 10*3/uL LAB HEMATOLOGY METHOD 01/06/2025 6:40 PM EST [facility] Immature Granulocytes Absolute 0.03 0.00 - 0.06 10*3/uL LAB HEMATOLOGY METHOD 01/06/2025 6:40 PM EST [facility] Blood Venous blood specimen / Unknown Venipuncture / Unknown 01/06/2025 6:00 PM EST 01/06/2025 6:29 PM EST [facility] - 01/06/2025 6:40 PM EST Therapeutic decision making should be based on absolute values, rather than percentages. us Maciel Olson MD LAB BLOOD ORDERABLES Final Resul t [facility] [address] [place] [address] * POCT glucose meter (01/06/2025 5:07 PM EST) [facility] POCT Glucose 79 74 - 99 mg/dL 01/06/2025 5:08 PM EST [facility] Comment:Accuracy of [...] 01/06/2025 5:08 PM EST [facility] Marketing Business Analyst ID Galileo Abdi 5:08 PM EST [facility] Device ID [id number] 01/06/2025 5:08 PM EST [facility] Specimen Type POC Venous 01/06/2025 5:08 PM EST [facility] Blood Venous blood specimen / Unknown 01/06/2025 5:07 PM EST 01/06/2025 5:08 PM EST Maciel Olson MD LAB POINT OF CARE TE ST DOCKED DEVICE UNSOLICITED RESULTS Final Result [facility] [address] [place] [address] * (ABNORMAL) POCT glucose meter (01/06/2025 11:47 AM EST) [facility] POCT Glucose 106(H) 74 - 99 mg/dL 01/06/2025 11:49 AM EST [facility] Comment:Accuracy of a glucos e result [...] 01/06/2025 11:49 AM EST [facility] Marketing Business Analyst ID Galileo Abdi 11:49 AM EST [facility] Device ID [id number] 01/06/2025 11:49 AM EST [facility] Specimen Type POC Venous 01/06/2025 11:49 AM EST [facility] Blood Venous blood specimen / Unknown 01/06/2025 11:47 AM EST 01/06/2025 11:49 AM EST Maciel Olson MD LAB POINT OF CARE TE ST DOCKED DEVICE UNSOLICITED RESULTS Final Result Performing Organization Address City/[facility] Co de Phone Number [facility] [address] [place] [address] * (ABNORMAL) Prothrombin Time/INR (01/06/2025 11:44 AM EST) Prothrombin Time 17.0(H) 12.0 - 14.3 sec LAB COAGULATION METHOD 01/06/2025 12:20 PM EST [facility] INR 1.4(H) 0.9 - 1.1 LAB COAGULATION METHOD 01/06/2025 12:20 PM EST [facility] Blood Venous blood specimen / Unknown Venipuncture / Unknown 01/06/2025 11:44 AM EST 01/06/2025 11:55 AM EST Narrative [facility] - 01/06/2025 12:20 PM EST OPTIMAL INR RANGES FOR PATIENT ON ORAL ANTICOAGULANT THERAPY Prevention of venous thromboembolism INR 2.0 to 3.0 In patients with heart disease: Atrial fibrillation INR 2.0 to 3.0 Valvular heart disease INR 2.0 to 3.0 Tissue heart valves INR 2.0 to 3.0 Mechanical prosthetic valves INR 2.5 to 3.5 Prevention of recurrent VT INR 2.5 to 3.5 Satnam Beckford MD LAB BLOOD ORDERABLES Final Result [facility] [address] [place] [address] * XR Abdomen 1 View (01/06/2025 8:47 [...] MD on 01/06/2025 9:33 AM Kamila Bashir APRN IMG XR PROCEDURES Final Resu lt * (ABNORMAL) Phosphorus, Plasma (01/06/2025 7:36 AM EST) Phosphorus, Plasma 5.5(H) 2.5 - 4.5 mg/dL 01/06/2025 8:25 AM EST [facility] Blood Venous blood specimen / Unknown Venipuncture / Unknown 01/06/2025 7:36 AM EST 01/06/2025 7:59 AM EST Maciel Olson MD LAB BLOOD ORDERABLES Final Resul t [facility] [address] [place] [address] * (ABNORMAL) Magnesium, Plasma (01/06/2025 7:36 AM EST) Magnesium, Plasma 2.6(H) 1.9 - 2.4 mg/dL 01/06/2025 8:25 AM EST [facility] Blood Venous blood specimen / Unknown Venipuncture / Unknown 01/06/2025 7:36 AM EST 01/06/2025 7:59 AM EST us Maciel Olson MD LAB BLOOD ORDERABLES Final Resul t Performing Organization Address [facility]/ZIP Co de Phone Number [facility] [address] [place] [address] * (ABNORMAL) Comprehensive metabolic panel (01/06/2025 7:36 AM EST) Glucose, Plasma 101(H) 74 - 99 mg/dL 01/06/2025 8:25 AM EST [facility] BUN, Plasma 63(H) 7 - 21 mg/dL 01/06/2025 8:25 AM EST [facility] Creatinine, Plasma 2.22(H) 0.70 - 1.20 mg/dL 01/06/2025 8:25 AM EST [facility] BUN/Creatinine Ratio 28 01/06/2025 8:25 AM EST [facility] Sodium, Plasma 129(L) 136 - 145 mmol/L 01/06/2025 8:25 AM EST [facility] Potassium, Plasma 4.7 3.6 - 4.9 mmol/L 01/06/2025 8:25 AM EST [facility] Chloride, Plasma 101 97 - 107 mmol/L 01/06/2025 8:25 AM EST [facility] CO2, Plasma 15(L) 22 - 29 mmol/L 01/06/2025 8:25 AM EST [facility] Anion Gap 13 6 - 16 mmol/L 01/06/2025 8:25 AM EST [facility] Total Calcium, Plasma 8.5(L) 8.9 - 10.2 mg/dL 01/06/2025 8:25 AM EST [facility] Total Protein 5.3(L) 6.3 - 7.9 g/dL 01/06/2025 8:25 AM EST [facility] Albumin, Plasma 3.3(L) 3.5 - 5.2 g/dL 01/06/2025 8:25 AM EST [facility] AST, Plasma 64(H) 10 - 50 U/L 01/06/2025 8:25 AM EST [facility] ALT, Plasma 117(H) 10 - 50 U/L 01/06/2025 8:25 AM EST [facility] Alkaline Phosphatase, Plasma 68 40 - 115 U/L 01/06/2025 8:25 AM EST [facility] Total Bilirubin, Plasma 4.1(H) 0.2 - 1.1 mg/dL 01/06/2025 8:25 AM EST [facility] eGFRcr 36.3 mL/min/1.7 3m*2 01/06/2025 8:25 AM EST [facility] Comment:Reported eGFRcr in m L/min/1.73m2 is based the CKD-EPI 2020 equation that does not use a race coefficient. Blood Venous blood specimen / Unknown Venipuncture / Unknown 01/06/2025 7:36 AM EST 01/06/2025 7:59 AM EST us Maciel Olson MD LAB BLOOD ORDERABLES Final Resul t [facility] [address] [place] [address] * (ABNORMAL) Prothrombin Time/INR (01/06/2025 7:36 AM EST) Prothrombin Time 17.6(H) 12.0 - 14.3 sec LAB COAGULATION METHOD 01/06/2025 7:58 AM EST [facility] INR 1.4(H) 0.9 - 1.1 LAB COAGULATION METHOD 01/06/2025 7:58 AM EST [facility] Blood Venous blood specimen / Unknown Venipuncture / Unknown 01/06/2025 7:36 AM EST 01/06/2025 7:43 AM EST [facility] - 01/06/2025 7:58 AM EST OPTIMAL INR RANGES FOR PATIENT ON ORAL ANTICOAGULANT THERAPY Prevention of venous thromboembolism INR 2.0 to 3.0 In patients with heart disease: Atrial fibrillation INR 2.0 to 3.0 Valvular heart disease INR 2.0 to 3.0 Tissue heart valves INR 2.0 to 3.0 Mechanical prosthetic valves INR 2.5 to 3.5 Prevention of recurrent VT INR 2.5 to 3.5 Satnam Beckford MD LAB BLOOD ORDERABLES Final Result [facility] [address] [place] [address] * (ABNORMAL) CBC W/O Differential (01/06/2025 7:36 AM EST) WBC Count 6.33 3.70 - 10.30 10*3/uL LAB HEMATOLOGY METHOD 01/06/2025 8:10 AM EST [facility] RBC Count 2.94(L) 4.60 - 6.10 10*6/uL LAB HEMATOLOGY METHOD 01/06/2025 8:10 AM EST [facility] HGB 9.0(L) 13.7 - 17.5 g/dL LAB HEMATOLOGY METHOD 01/06/2025 8:10 AM EST [facility] HCT 26.2(L) 40.0 - 51.0 % LAB HEMATOLOGY METHOD 01/06/2025 8:10 AM EST [facility] Platelet Count 47(L) 155 - 369 10*3/uL LAB HEMATOLOGY METHOD 01/06/2025 8:10 AM EST [facility] MCV 89 79 - 98 fL LAB HEMATOLOGY METHOD 01/06/2025 8:10 AM EST [facility] MCH 30.6 26.0 - 32.0 pg LAB HEMATOLOGY METHOD 01/06/2025 8:10 AM EST [facility] MCHC 34.4 30.7 - 35.5 g/dL LAB HEMATOLOGY METHOD 01/06/2025 8:10 AM EST [facility] RDW 19.9(H) 11.5 - 14.5 % LAB HEMATOLOGY METHOD 01/06/2025 8:10 AM EST [facility] MPV 10.4 8.8 - 12.5 fL LAB HEMATOLOGY METHOD 01/06/2025 8:10 AM EST [facility] nRBC 0.0 <=0.0 per 100 WBCs LAB HEMATOLOGY METHOD 01/06/2025 8:10 AM EST [facility] Blood Venous blood specimen / Unknown Venipuncture / Unknown 01/06/2025 7:36 AM EST 01/06/2025 8:03 AM EST Satnam Beckford MD LAB BLOOD ORDERABLES Final Result [facility] [address] [place] [address] * Tacrolimus (01/06/2025 5:15 AM EST) Tacrolimus 13.6 4.0 - 17.0 ng/mL 01/06/2025 7:49 AM EST [facility] Comment: Tacrolimus therapeutic range: Initial (<3 mo.) Maintenance Kidney 8-13 ng/mL 4-8 ng/mL Liver 8-13 ng/mL 4-8 ng/mL Heart 8-15 ng/mL 7-13 ng/mL Lung;Heart/Lung 8-17 ng/mL 8-13 ng/mL Blood Venous blood specimen / Unknown Venipuncture / Unknown 01/06/2025 5:15 AM EST 01/06/2025 5:24 AM EST Narrative [facility] - 01/06/2025 7:49 AM EST Test performed by LC-MS/MS at the [facility]. This test was developed and its performance characteristics determined by [facility]. It has not been cleared or approved by the FDA. The laboratory is regulated under CLIA as qualified to perform high-complexity testing. This test is used for clinical purposes. Test performed by LC-MS/MS at the [facility]. This test was developed and its performance characteristics determined by [facility]. It has not been cleared or approved by the FDA. The laboratory is regulated under CLIA as qualified to perform high-complexity testing. This test is used for clinical purposes. Satnam Beckford MD LAB BLOOD ORDERABLES Final Result Performing Organization Address City/[facility]/ZIP Co de Phone Number [facility] [address] [place] [address] * (ABNORMAL) Prothrombin Time/INR (01/06/2025 4:27 AM EST) Prothrombin Time 17.6(H) 12.0 - 14.3 sec LAB COAGULATION METHOD 01/06/2025 5:13 AM EST [facility] INR 1.4(H) 0.9 - 1.1 LAB COAGULATION METHOD 01/06/2025 5:13 AM EST [facility] Blood Venous blood specimen / Unknown Venipuncture / Unknown 01/06/2025 4:27 AM EST 01/06/2025 4:37 AM EST Narrative [facility] - 01/06/2025 5:13 AM EST OPTIMAL INR RANGES FOR PATIENT ON ORAL ANTICOAGULANT THERAPY Prevention of venous thromboembolism INR 2.0 to 3.0 In patients with heart disease: Atrial fibrillation INR 2.0 to 3.0 Valvular heart disease INR 2.0 to 3.0 Tissue heart valves INR 2.0 to 3.0 Mechanical prosthetic valves INR 2.5 to 3.5 Prevention of recurrent VT INR 2.5 to 3.5 Satnam Beckford MD LAB BLOOD ORDERABLES Final Result Performing Organization Address [facility]/ZIP Co de Phone Number [facility] [address] [place] [address] * (ABNORMAL) CBC W/O Differential (01/06/2025 4:27 AM EST) WBC Count 6.02 3.70 - 10.30 10*3/uL LAB HEMATOLOGY METHOD 01/06/2025 4:46 AM EST [facility] RBC Count 2.83(L) 4.60 - 6.10 10*6/uL LAB HEMATOLOGY METHOD 01/06/2025 4:46 AM EST [facility] HGB 8.5(L) 13.7 - 17.5 g/dL LAB HEMATOLOGY METHOD 01/06/2025 4:46 AM EST [facility] HCT 25.1(L) 40.0 - 51.0 % LAB HEMATOLOGY METHOD 01/06/2025 4:46 AM EST [facility] Platelet Count 45(L) 155 - 369 10*3/uL LAB HEMATOLOGY METHOD 01/06/2025 4:46 AM EST [facility] MCV 89 79 - 98 fL LAB HEMATOLOGY METHOD 01/06/2025 4:46 AM EST [facility] MCH 30.0 26.0 - 32.0 pg LAB HEMATOLOGY METHOD 01/06/2025 4:46 AM EST [facility] MCHC 33.9 30.7 - 35.5 g/dL LAB HEMATOLOGY METHOD 01/06/2025 4:46 AM EST [facility] RDW 19.6(H) 11.5 - 14.5 % LAB HEMATOLOGY METHOD 01/06/2025 4:46 AM EST [facility] MPV 10.0 8.8 - 12.5 fL LAB HEMATOLOGY METHOD 01/06/2025 4:46 AM EST [facility] nRBC 0.0 <=0.0 per 100 WBCs LAB HEMATOLOGY METHOD 01/06/2025 4:46 AM EST [facility] Blood Venous blood specimen / Unknown Venipuncture / Unknown 01/06/2025 4:27 AM EST 01/06/2025 4:37 AM EST Satnam Beckford MD LAB BLOOD ORDERABLES Final Result [facility] [address] [place] [address] * XR Chest 1 View (01/06/2025 2:41 [...] - 99 mg/dL 01/06/2025 12:22 AM EST [facility] Comment:Accuracy of [...] for testing. Comment 01/06/2025 12:22 AM EST [employer] [facility] Marketing Business Analyst ID [email or web address] 01/06/2025 12:22 AM EST [employer] [facility] Device ID [id number] 01/06/2025 12:22 AM EST [facility] Specimen Type POC Arterial 01/06/2025 12:22 AM EST [facility] Blood Arterial blood specimen / Unknown 01/06/2025 12:19 AM EST 01/06/2025 12:22 AM EST us Maciel Olson MD LAB POINT OF CARE TE ST DOCKED DEVICE UNSOLICITED RESULTS Final Result Performing Organization Address [facility] Co de Phone Number [facility] [address] [place] [address] * (ABNORMAL) Phosphorus, Plasma (01/06/2025 12:15 AM EST) Phosphorus, Plasma 5.9(H) 2.5 - 4.5 mg/dL 01/06/2025 1:00 AM EST [facility] Blood Venous blood specimen / Unknown Venipuncture / Unknown 01/06/2025 12:15 AM EST 01/06/2025 12:27 AM EST us Maciel Olson MD LAB BLOOD ORDERABLES Final Resul t Performing Organization Address [facility] de Phone Number [facility] [address] [place] [address] * (ABNORMAL) Magnesium, Plasma (01/06/2025 12:15 AM EST) Magnesium, Plasma 2.6(H) 1.9 - 2.4 mg/dL 01/06/2025 1:00 AM EST [facility] Blood Venous blood specimen / Unknown Venipuncture / Unknown 01/06/2025 12:15 AM EST 01/06/2025 12:27 AM EST us Maciel Olson MD LAB BLOOD ORDERABLES Final Resul t Performing Organization Address City/[facility] Co de Phone Number [facility] [address] [place] [address] * (ABNORMAL) Comprehensive metabolic panel (01/06/2025 12:15 AM EST) Glucose, Plasma 105(H) 74 - 99 mg/dL 01/06/2025 1:00 AM EST [facility] BUN, Plasma 60(H) 7 - 21 mg/dL 01/06/2025 1:00 AM EST [facility] Creatinine, Plasma 2.21(H) 0.70 - 1.20 mg/dL 01/06/2025 1:00 AM [facility] BUN/Creatinine Ratio 27 01/06/2025 1:00 AM [facility] Sodium, Plasma 132(L) 136 - 145 mmol/L 01/06/2025 1:00 AM [facility] Potassium, Plasma 4.9 3.6 - 4.9 mmol/L 01/06/2025 1:00 AM [facility] Chloride, Plasma 103 97 - 107 mmol/L 01/06/2025 1:00 AM [facility] CO2, Plasma 17(L) 22 - 29 mmol/L 01/06/2025 1:00 AM [facility] Anion Gap 12 6 - 16 mmol/L 01/06/2025 1:00 AM [facility] Total Calcium, Plasma 8.5(L) 8.9 - 10.2 mg/dL 01/06/2025 1:00 AM [facility] Total Protein 5.1(L) 6.3 - 7.9 g/dL 01/06/2025 1:00 AM [facility] Albumin, Plasma 3.2(L) 3.5 - 5.2 g/dL 01/06/2025 1:00 AM [facility] AST, Plasma 70(H) 10 - 50 U/L 01/06/2025 1:00 AM [facility] ALT, Plasma 116(H) 10 - 50 U/L 01/06/2025 1:00 AM [facility] Alkaline Phosphatase, Plasma 57 40 - 115 U/L 01/06/2025 1:00 AM [facility] Total Bilirubin, Plasma 4.2(H) 0.2 - 1.1 mg/dL 01/06/2025 1:00 AM [facility] eGFRcr 36.5 mL/min/1.7 3m*2 01/06/2025 1:00 AM [facility] Comment:Reported eGFRcr in m L/min/1.73m2 is based the CKD-EPI 2020 equation that does not use a race coefficient. Blood Venous blood specimen / Unknown Venipuncture / Unknown 01/06/2025 12:15 AM EST 01/06/2025 12:27 AM EST us Maciel Olson MD LAB BLOOD ORDERABLES Final Resul t [facility] [address] [place] [address] * (ABNORMAL) Prothrombin Time/INR (01/06/2025 12:15 AM EST) Prothrombin Time 17.8(H) 12.0 - 14.3 sec LAB COAGULATION METHOD 01/06/2025 12:49 AM EST [facility] INR 1.4(H) 0.9 - 1.1 LAB COAGULATION METHOD 01/06/2025 12:49 AM EST [facility] Blood Venous blood specimen / Unknown Venipuncture / Unknown 01/06/2025 12:15 AM EST 01/06/2025 12:28 AM EST Narrative [facility] - 01/06/2025 12:49 AM EST OPTIMAL INR RANGES FOR PATIENT ON ORAL ANTICOAGULANT THERAPY Prevention of venous thromboembolism INR 2.0 to 3.0 In patients with heart disease: Atrial fibrillation INR 2.0 to 3.0 Valvular heart disease INR 2.0 to 3.0 Tissue heart valves INR 2.0 to 3.0 Mechanical prosthetic valves INR 2.5 to 3.5 Prevention of recurrent VT INR 2.5 to 3.5 us Satnam Beckford MD LAB BLOOD ORDERABLES Final Result Performing Organization Address City/[facility]/ZIP Co de Phone Number [facility] [address] [place] [address] * (ABNORMAL) CBC W/O Differential (01/06/2025 12:15 AM EST) WBC Count 6.50 3.70 - 10.30 10*3/uL LAB HEMATOLOGY METHOD 01/06/2025 12:39 AM EST [facility] RBC Count 2.92(L) 4.60 - 6.10 10*6/uL LAB HEMATOLOGY METHOD 01/06/2025 12:39 AM EST [facility] HGB 8.7(L) 13.7 - 17.5 g/dL LAB HEMATOLOGY METHOD 01/06/2025 12:39 AM EST [facility] HCT 25.7(L) 40.0 - 51.0 % LAB HEMATOLOGY METHOD 01/06/2025 12:39 AM EST [facility] Platelet Count 48(L) 155 - 369 10*3/uL LAB HEMATOLOGY METHOD 01/06/2025 12:39 AM EST [facility] MCV 88 79 - 98 fL LAB HEMATOLOGY METHOD 01/06/2025 12:39 AM EST [facility] MCH 29.8 26.0 - 32.0 pg LAB HEMATOLOGY METHOD 01/06/2025 12:39 AM EST [facility] MCHC 33.9 30.7 - 35.5 g/dL LAB HEMATOLOGY METHOD 01/06/2025 12:39 AM EST [facility] RDW 19.7(H) 11.5 - 14.5 % LAB HEMATOLOGY METHOD 01/06/2025 12:39 AM EST [facility] MPV 10.2 8.8 - 12.5 fL LAB HEMATOLOGY METHOD 01/06/2025 12:39 AM EST [facility] nRBC 0.0 <=0.0 per 100 WBCs LAB HEMATOLOGY METHOD 01/06/2025 12:39 AM EST [facility] Blood Venous blood specimen / Unknown Venipuncture / Unknown 01/06/2025 12:15 AM EST 01/06/2025 12:27 AM EST us Satnam Beckford MD LAB BLOOD ORDERABLES Final Result Performing Organization Address City/State/[facility] Co de Phone Number [facility] [address] [place] [address] * (ABNORMAL) Prothrombin Time/INR (01/05/2025 8:05 PM EST) Prothrombin Time 18.1(H) 12.0 - 14.3 sec LAB COAGULATION METHOD 01/05/2025 8:55 PM EST [facility] INR 1.5(H) 0.9 - 1.1 LAB COAGULATION METHOD 01/05/2025 8:55 PM EST [facility] Blood Venous blood specimen / Unknown Venipuncture / Unknown 01/05/2025 8:05 PM EST 01/05/2025 8:32 PM EST Narrative [facility] - 01/05/2025 8:55 PM EST OPTIMAL INR RANGES FOR PATIENT ON ORAL ANTICOAGULANT THERAPY Prevention of venous thromboembolism INR 2.0 to 3.0 In patients with heart disease: Atrial fibrillation INR 2.0 to 3.0 Valvular heart disease INR 2.0 to 3.0 Tissue heart valves INR 2.0 to 3.0 Mechanical prosthetic valves INR 2.5 to 3.5 Prevention of recurrent VT INR 2.5 to 3.5 us Satnam Beckford MD LAB BLOOD ORDERABLES Final Result [facility] [address] [place] [address] * (ABNORMAL) CBC W/O Differential (01/05/2025 8:05 PM EST) WBC Count 7.09 3.70 - 10.30 10*3/uL LAB HEMATOLOGY METHOD 01/05/2025 8:39 PM EST [facility] RBC Count 2.99(L) 4.60 - 6.10 10*6/uL LAB HEMATOLOGY METHOD 01/05/2025 8:39 PM EST [facility] HGB 8.9(L) 13.7 - 17.5 g/dL LAB HEMATOLOGY METHOD 01/05/2025 8:39 PM EST [facility] HCT 26.0(L) 40.0 - 51.0 % LAB HEMATOLOGY METHOD 01/05/2025 8:39 PM EST [facility] Platelet Count 49(L) 155 - 369 10*3/uL LAB HEMATOLOGY METHOD 01/05/2025 8:39 PM EST [facility] [facility] MCV 87 79 - 98 fL LAB HEMATOLOGY METHOD 01/05/2025 8:39 PM EST [facility] MCH 29.8 26.0 - 32.0 pg LAB HEMATOLOGY METHOD 01/05/2025 8:39 PM EST [facility] MCHC 34.2 30.7 - 35.5 g/dL LAB HEMATOLOGY METHOD 01/05/2025 8:39 PM EST [facility] RDW 19.9(H) 11.5 - 14.5 % LAB HEMATOLOGY METHOD 01/05/2025 8:39 PM EST [facility] MPV 10.2 8.8 - 12.5 fL LAB HEMATOLOGY METHOD 01/05/2025 8:39 PM EST [facility] nRBC 0.0 <=0.0 per 100 WBCs LAB HEMATOLOGY METHOD 01/05/2025 8:39 PM EST [facility] Blood Venous blood specimen / Unknown Venipuncture / Unknown 01/05/2025 8:05 PM EST 01/05/2025 8:32 PM EST us Satnam Beckford MD LAB BLOOD ORDERABLES Final Result Performing Organization Address City/[facility]/ZIP Co de Phone Number [facility] [address] [place] [address] * (ABNORMAL) POCT glucose meter (01/05/2025 6:31 [...] for testing. Comment 01/05/2025 6:33 PM EST [facility] Marketing Business Analyst ID Leo Aguiar 6:33 PM EST [facility] Device ID [id number] 01/05/2025 6:33 PM EST [facility] Specimen Type POC Capillary 01/05/2025 6:33 PM EST [facility] Blood Capillary blood specimen / Unknown 01/05/2025 6:31 PM EST 01/05/2025 6:33 PM EST us Maciel Olson MD LAB POINT OF CARE TE ST DOCKED DEVICE UNSOLICITED RESULTS Final Result Performing Organization Address City/[facility]/ZIP Co de Phone Number [facility] [address] [place] [address] * (ABNORMAL) POCT glucose meter (01/05/2025 3:51 PM EST) POCT Glucose 109(H) 74 - 99 mg/dL 01/05/2025 3:53 PM EST [facility] Comment:Accuracy of a glucos e result [...] Comment 01/05/2025 3:53 PM EST [facility] Marketing Business Analyst ID Leo Aguiar 3:53 PM EST [facility] Device ID [id number] 01/05/2025 3:53 PM EST [facility] Specimen Type POC Arterial 01/05/2025 3:53 PM EST [facility] Blood Arterial blood specimen / Unknown 01/05/2025 3:51 PM EST 01/05/2025 3:53 PM EST Maciel Olson MD LAB POINT OF CARE TE ST DOCKED DEVICE UNSOLICITED RESULTS Final Result Performing Organization Address City/[facility]/ZIP Co de Phone Number [facility] [address] [place] [address] * (ABNORMAL) Phosphorus, Plasma (01/05/2025 3:49 PM EST) Phosphorus, Plasma 6.1(H) 2.5 - 4.5 mg/dL 01/05/2025 4:39 PM EST [facility] Blood Arterial blood specimen / Unknown Arterial Puncture / Unknown 01/05/2025 3:49 PM EST 01/05/2025 4:07 PM EST us Maciel Olson MD LAB BLOOD ORDERABLES Final Resul t [facility] [address] [place] [address] * (ABNORMAL) Magnesium, Plasma (01/05/2025 3:49 PM EST) Magnesium, Plasma 2.6(H) 1.9 - 2.4 mg/dL 01/05/2025 4:39 PM EST [facility] Blood Arterial blood specimen / Unknown Arterial Puncture / Unknown 01/05/2025 3:49 PM EST 01/05/2025 4:07 PM EST us Maciel Olson MD LAB BLOOD ORDERABLES Final Resul t [facility] [address] [place] [address] * (ABNORMAL) Comprehensive metabolic panel (01/05/2025 3:49 PM EST) Glucose, Plasma 99 74 - 99 mg/dL 01/05/2025 4:39 PM EST [facility] BUN, Plasma 56(H) 7 - 21 mg/dL 01/05/2025 4:39 PM EST [facility] Creatinine, Plasma 2.05(H) 0.70 - 1.20 mg/dL 01/05/2025 4:39 PM EST [facility] BUN/Creatinine Ratio 27 01/05/2025 4:39 PM EST [facility] Sodium, Plasma 134(L) 136 - 145 mmol/L 01/05/2025 4:39 PM EST [facility] Potassium, Plasma 4.7 3.6 - 4.9 mmol/L 01/05/2025 4:39 PM EST [facility] Chloride, Plasma 105 97 - 107 mmol/L 01/05/2025 4:39 PM EST [facility] CO2, Plasma 16(L) 22 - 29 mmol/L 01/05/2025 4:39 PM EST [facility] Anion Gap 13 6 - 16 mmol/L 01/05/2025 4:39 PM EST [facility] Total Calcium, Plasma 8.7(L) 8.9 - 10.2 mg/dL 01/05/2025 4:39 PM EST [facility] Total Protein 5.3(L) 6.3 - 7.9 g/dL 01/05/2025 4:39 PM EST [facility] Albumin, Plasma 3.5 3.5 - 5.2 g/dL 01/05/2025 4:39 PM EST [facility] AST, Plasma 90(H) 10 - 50 U/L 01/05/2025 4:39 PM EST [facility] ALT, Plasma 127(H) 10 - 50 U/L 01/05/2025 4:39 PM EST [facility] Alkaline Phosphatase, Plasma 61 40 - 115 U/L 01/05/2025 4:39 PM EST [facility] Total Bilirubin, Plasma 4.8(H) 0.2 - 1.1 mg/dL 01/05/2025 4:39 PM EST [facility] eGFRcr 40.0 mL/min/1.7 3m*2 01/05/2025 4:39 PM EST [facility] Comment:Reported eGFRcr in m L/min/1.73m2 is based the CKD-EPI 2020 equation that does not use a race coefficient. Blood Arterial blood specimen / Unknown Arterial Puncture / Unknown 01/05/2025 3:49 PM EST 01/05/2025 4:07 PM EST us Maciel Olson MD LAB BLOOD ORDERABLES Final Resul t [facility] [address] [place] [address] * (ABNORMAL) Prothrombin Time/INR (01/05/2025 3:49 PM EST) Prothrombin Time 18.8(H) 12.0 - 14.3 sec LAB COAGULATION METHOD 01/05/2025 4:36 PM EST [facility] INR 1.5(H) 0.9 - 1.1 LAB COAGULATION METHOD 01/05/2025 4:36 PM EST [facility] Blood Arterial blood specimen / Unknown Arterial Puncture / Unknown 01/05/2025 3:49 PM EST 01/05/2025 4:07 PM EST Narrative [facility] - 01/05/2025 4:36 PM EST OPTIMAL INR RANGES FOR PATIENT ON ORAL ANTICOAGULANT THERAPY Prevention of venous thromboembolism INR 2.0 to 3.0 In patients with heart disease: Atrial fibrillation INR 2.0 to 3.0 Valvular heart disease INR 2.0 to 3.0 Tissue heart valves INR 2.0 to 3.0 Mechanical prosthetic valves INR 2.5 to 3.5 Prevention of recurrent VT INR 2.5 to 3.5 us Satnam Beckford MD LAB BLOOD ORDERABLES Final Result [facility] [address] [place] [address] * (ABNORMAL) CBC W/O Differential (01/05/2025 3:49 PM EST) WBC Count 7.36 3.70 - 10.30 10*3/uL LAB HEMATOLOGY METHOD 01/05/2025 4:39 PM EST [facility] RBC Count 2.86(L) 4.60 - 6.10 10*6/uL LAB HEMATOLOGY METHOD 01/05/2025 4:39 PM EST [facility] HGB 8.7(L) 13.7 - 17.5 g/dL LAB HEMATOLOGY METHOD 01/05/2025 4:39 PM EST [facility] HCT 25.3(L) 40.0 - 51.0 % LAB HEMATOLOGY METHOD 01/05/2025 4:39 PM EST [facility] Platelet Count 42(L) 155 - 369 10*3/uL LAB HEMATOLOGY METHOD 01/05/2025 4:39 PM EST [facility] MCV 89 79 - 98 fL LAB HEMATOLOGY METHOD 01/05/2025 4:39 PM EST [facility] MCH 30.4 26.0 - 32.0 pg LAB HEMATOLOGY METHOD 01/05/2025 4:39 PM EST [facility] MCHC 34.4 30.7 - 35.5 g/dL LAB HEMATOLOGY METHOD 01/05/2025 4:39 PM EST [facility] RDW 19.8(H) 11.5 - 14.5 % LAB HEMATOLOGY METHOD 01/05/2025 4:39 PM EST [facility] MPV 10.4 8.8 - 12.5 fL LAB HEMATOLOGY METHOD 01/05/2025 4:39 PM EST [facility] nRBC 0.0 <=0.0 per 100 WBCs LAB HEMATOLOGY METHOD 01/05/2025 4:39 PM EST [facility] Blood Arterial blood specimen / Unknown Arterial Puncture / Unknown 01/05/2025 3:49 PM EST 01/05/2025 4:22 PM EST us Satnam Beckford MD LAB BLOOD ORDERABLES Final Result [facility] [address] [place] [address] * XR Abdomen 1 View (01/05/2025 12:41 [...] - 99 mg/dL 01/05/2025 12:04 PM EST [facility] Comment:Accuracy of a [...] for testing. Comment 01/05/2025 12:04 PM EST [facility] Marketing Business Analyst ID Leo Aguiar 12:04 PM EST [facility] Device ID [id number] 01/05/2025 12:04 PM EST [facility] Specimen Type POC Venous 01/05/2025 12:04 PM EST [facility] Blood Venous blood specimen / Unknown 01/05/2025 12:03 PM EST 01/05/2025 12:04 PM EST Maciel Olson MD LAB POINT OF CARE TE ST DOCKED DEVICE UNSOLICITED RESULTS Final Result Performing Organization Address City/State/[facility] de Phone Number [facility] [address] [place] [address] * (ABNORMAL) Prothrombin Time/INR (01/05/2025 12:00 PM EST) Prothrombin Time 18.9(H) 12.0 - 14.3 sec LAB COAGULATION METHOD 01/05/2025 12:34 PM EST [facility] INR 1.5(H) 0.9 - 1.1 LAB COAGULATION METHOD 01/05/2025 12:34 PM EST [facility] Blood Arterial blood specimen / Unknown Arterial Puncture / Unknown 01/05/2025 12:00 PM EST 01/05/2025 12:11 PM EST Narrative [facility] - 01/05/2025 12:34 PM EST OPTIMAL INR RANGES FOR PATIENT ON ORAL ANTICOAGULANT THERAPY Prevention of venous thromboembolism INR 2.0 to 3.0 In patients with heart disease: Atrial fibrillation INR 2.0 to 3.0 Valvular heart disease INR 2.0 to 3.0 Tissue heart valves INR 2.0 to 3.0 Mechanical prosthetic valves INR 2.5 to 3.5 Prevention of recurrent VT INR 2.5 to 3.5 Satnam Beckford MD LAB BLOOD ORDERABLES Final Result [facility] [address] [place] [address] * (ABNORMAL) CBC W/O Differential (01/05/2025 12:00 PM EST) WBC Count 8.36 3.70 - 10.30 10*3/uL LAB HEMATOLOGY METHOD 01/05/2025 12:26 PM EST [facility] RBC Count 2.90(L) 4.60 - 6.10 10*6/uL LAB HEMATOLOGY METHOD 01/05/2025 12:26 PM EST [facility] HGB 8.9(L) 13.7 - 17.5 g/dL LAB HEMATOLOGY METHOD 01/05/2025 12:26 PM EST [facility] HCT 25.9(L) 40.0 - 51.0 % LAB HEMATOLOGY METHOD 01/05/2025 12:26 PM EST [facility] Platelet Count 44(L) 155 - 369 10*3/uL LAB HEMATOLOGY METHOD 01/05/2025 12:26 PM EST [facility] MCV 89 79 - 98 fL LAB HEMATOLOGY METHOD 01/05/2025 12:26 PM EST [facility] MCH 30.7 26.0 - 32.0 pg LAB HEMATOLOGY METHOD 01/05/2025 12:26 PM EST [facility] MCHC 34.4 30.7 - 35.5 g/dL LAB HEMATOLOGY METHOD 01/05/2025 12:26 PM EST [facility] RDW 19.7(H) 11.5 - 14.5 % LAB HEMATOLOGY METHOD 01/05/2025 12:26 PM EST [facility] MPV 10.1 8.8 - 12.5 fL LAB HEMATOLOGY METHOD 01/05/2025 12:26 PM EST [facility] nRBC 0.0 <=0.0 per 100 WBCs LAB HEMATOLOGY METHOD 01/05/2025 12:26 PM EST [facility] Blood Arterial blood specimen / Unknown Arterial Puncture / Unknown 01/05/2025 12:00 PM EST 01/05/2025 12:19 PM EST Satnam Beckford MD LAB BLOOD ORDERABLES Final Result [facility] [address] [place] [address] * [facility], E/M 30-74 MINUTES (01/05/2025 11:03 [...] - 99 mg/dL 01/05/2025 9:14 AM EST [facility] BUN, Plasma 49(H) 7 - 21 mg/dL 01/05/2025 9:14 AM EST [facility] Creatinine, Plasma 1.90(H) 0.70 - 1.20 mg/dL 01/05/2025 9:14 AM EST [facility] BUN/Creatinine Ratio 26 01/05/2025 9:14 AM EST [facility] Sodium, Plasma 136 136 - 145 mmol/L 01/05/2025 9:14 AM EST [facility] Potassium, Plasma 4.7 3.6 - 4.9 mmol/L 01/05/2025 9:14 AM EST [facility] Chloride, Plasma 106 97 - 107 mmol/L 01/05/2025 9:14 AM EST [facility] CO2, Plasma 16(L) 22 - 29 mmol/L 01/05/2025 9:14 AM EST [facility] Anion Gap 14 6 - 16 mmol/L 01/05/2025 9:14 AM EST [facility] Total Calcium, Plasma 8.8(L) 8.9 - 10.2 mg/dL 01/05/2025 9:14 AM EST [facility] Total Protein 5.5(L) 6.3 - 7.9 g/dL 01/05/2025 9:14 AM EST [facility] Albumin, Plasma 3.7 3.5 - 5.2 g/dL 01/05/2025 9:14 AM EST [facility] AST, Plasma 110(H) 10 - 50 U/L 01/05/2025 9:14 AM EST [facility] ALT, Plasma 138(H) 10 - 50 U/L 01/05/2025 9:14 AM EST [facility] Alkaline Phosphatase, Plasma 61 40 - 115 U/L 01/05/2025 9:14 AM EST [facility] Total Bilirubin, Plasma 5.4(H) 0.2 - 1.1 mg/dL 01/05/2025 9:14 AM EST [facility] eGFRcr 43.8 mL/min/1.7 3m*2 01/05/2025 9:14 AM EST [facility] Comment:Reported eGFRcr in m L/min/1.73m2 is based the CKD-EPI 2020 equation that does not use a race coefficient. Blood Arterial blood specimen / Unknown Arterial Puncture / Unknown 01/05/2025 8:39 AM EST 01/05/2025 8:46 AM EST us Satnam Beckford MD LAB BLOOD ORDERABLES Final Result [facility] [address] [place] [address] * (ABNORMAL) Magnesium, Plasma (01/05/2025 8:39 AM EST) Magnesium, Plasma 2.6(H) 1.9 - 2.4 mg/dL 01/05/2025 9:14 AM EST [facility] Blood Arterial blood specimen / Unknown Arterial Puncture / Unknown 01/05/2025 8:39 AM EST 01/05/2025 8:46 AM EST Satnam Beckford MD LAB BLOOD ORDERABLES Final Result Performing Organization Address City/[facility]/ZIP Co de Phone Number [facility] [address] [place] [address] * (ABNORMAL) Phosphorus, Plasma (01/05/2025 8:39 AM EST) Phosphorus, Plasma 6.0(H) 2.5 - 4.5 mg/dL 01/05/2025 9:14 AM EST [facility] Blood Arterial blood specimen / Unknown Arterial Puncture / Unknown 01/05/2025 8:39 AM EST 01/05/2025 8:46 AM EST Satnam Beckford MD LAB BLOOD ORDERABLES Final Result Performing Organization Address City/[facility]/ZIP Co de Phone Number [facility] [address] [place] [address] * (ABNORMAL) Prothrombin Time/INR (01/05/2025 8:39 AM EST) Prothrombin Time 18.6(H) 12.0 - 14.3 sec LAB COAGULATION METHOD 01/05/2025 9:32 AM EST [facility] INR 1.5(H) 0.9 - 1.1 LAB COAGULATION METHOD 01/05/2025 9:32 AM EST [facility] Blood Arterial blood specimen / Unknown Arterial Puncture / Unknown 01/05/2025 8:39 AM EST 01/05/2025 8:46 AM EST Narrative [facility] - 01/05/2025 9:32 AM EST OPTIMAL INR RANGES FOR PATIENT ON ORAL ANTICOAGULANT THERAPY Prevention of venous thromboembolism INR 2.0 to 3.0 In patients with heart disease: Atrial fibrillation INR 2.0 to 3.0 Valvular heart disease INR 2.0 to 3.0 Tissue heart valves INR 2.0 to 3.0 Mechanical prosthetic valves INR 2.5 to 3.5 Prevention of recurrent VT INR 2.5 to 3.5 Satnam Beckford MD LAB BLOOD ORDERABLES Final Result [facility] [address] [place] [address] * (ABNORMAL) CBC W/O Differential (01/05/2025 8:39 AM EST) [facility] WBC Count 8.94 3.70 - 10.30 10*3/uL LAB HEMATOLOGY METHOD 01/05/2025 8:54 AM EST [facility] RBC Count 2.92(L) 4.60 - 6.10 10*6/uL LAB HEMATOLOGY METHOD 01/05/2025 8:54 AM EST [facility] HGB 8.8(L) 13.7 - 17.5 g/dL LAB HEMATOLOGY METHOD 01/05/2025 8:54 AM EST [facility] HCT 25.5(L) 40.0 - 51.0 % LAB HEMATOLOGY METHOD 01/05/2025 8:54 AM EST [facility] Platelet Count 48(L) 155 - 369 10*3/uL LAB HEMATOLOGY METHOD 01/05/2025 8:54 AM EST [facility] MCV 87 79 - 98 fL LAB HEMATOLOGY METHOD 01/05/2025 8:54 AM EST [facility] MCH 30.1 26.0 - 32.0 pg LAB HEMATOLOGY METHOD 01/05/2025 8:54 AM EST [facility] MCHC 34.5 30.7 - 35.5 g/dL LAB HEMATOLOGY METHOD 01/05/2025 8:54 AM EST [facility] RDW 19.5(H) 11.5 - 14.5 % LAB HEMATOLOGY METHOD 01/05/2025 8:54 AM EST [facility] MPV 10.2 8.8 - 12.5 fL LAB HEMATOLOGY METHOD 01/05/2025 8:54 AM EST [facility] nRBC 0.0 <=0.0 per 100 WBCs LAB HEMATOLOGY METHOD 01/05/2025 8:54 AM EST [facility] Blood Arterial blood specimen / Unknown Arterial Puncture / Unknown 01/05/2025 8:39 AM EST 01/05/2025 8:46 AM EST us Satnam Beckford MD LAB BLOOD ORDERABLES Final Result Performing Organization Address [facility] Co de Phone Number [facility] [address] [place] [address] * (ABNORMAL) POCT glucose meter (01/05/2025 8:38 AM EST) [facility] POCT Glucose 107(H) 74 - 99 mg/dL [...] Comment 01/05/2025 8:40 AM EST [facility] Marketing Business Analyst ID Leo Aguiar 8:40 AM EST [facility] Device ID [id number] 01/05/2025 8:40 AM EST [facility] Specimen Type POC Capillary 01/05/2025 8:40 AM EST [facility] Blood Capillary blood specimen / Unknown 01/05/2025 8:38 AM EST 01/05/2025 8:40 AM EST us Maciel Olson MD LAB POINT OF CARE TE ST DOCKED DEVICE UNSOLICITED RESULTS Final Result Performing Organization Address City/[facility]/ZIP Co de Phone Number [facility] [address] [place] [address] * Transfuse RBC (01/05/2025 5:53 AM EST) us Kelvin Zapata APRN BLOOD TRANSFUSION ORDERAB LES Final Result * Transfuse RBC: 1 Units (01/05/2025 5:53 AM EST) us Kelvin Zapata DEHYDRATOR TENDER BLOOD TRANSFUSION ORDERAB LES Final Result * Tacrolimus (01/05/2025 5:49 AM EST) Tacrolimus 4.9 4.0 - 17.0 ng/mL 01/05/2025 11:44 AM EST [facility] Comment: Tacrolimus therapeutic range: Initial (<3 mo.) Maintenance Kidney 8-13 ng/mL 4-8 ng/mL Liver 8-13 ng/mL 4-8 ng/mL Heart 8-15 ng/mL 7-13 ng/mL Lung;Heart/Lung 8-17 ng/mL 8-13 ng/mL Blood Arterial blood specimen / Unknown Arterial Puncture / Unknown 01/05/2025 5:49 AM EST 01/05/2025 6:00 AM EST Narrative [facility] - 01/05/2025 11:44 AM EST Test performed by LC-MS/MS at the [facility]. This test was developed and its performance characteristics determined by [facility]. It has not been cleared or approved by the FDA. The laboratory is regulated under CLIA as qualified to perform high-complexity testing. This test is used for clinical purposes. Test performed by LC-MS/MS at the [facility]. This test was developed and its performance characteristics determined by [facility]. It has not been cleared or approved by the FDA. The laboratory is regulated under CLIA as qualified to perform high-complexity testing. This test is used for clinical purposes. Satnam Beckford MD LAB BLOOD ORDERABLES Final Result Performing Organization Address City/State/[facility] Co de Phone Number [facility] [address] [place] [address] * (ABNORMAL) POCT glucose meter (01/05/2025 5:44 AM EST) POCT Glucose 113(H) 74 - 99 mg/dL 01/05/2025 5:45 AM EST [facility] Comment:Accuracy of a glucos e result [...] for testing. Comment 01/05/2025 5:45 AM EST [facility] Marketing Business Analyst ID Shaka Burciaga 01/05/2025 5:45 AM EST [facility] Device ID [id number] 01/05/2025 5:45 AM EST [facility] Specimen Type POC Arterial 01/05/2025 5:45 AM EST [facility] Blood Arterial blood specimen / Unknown 01/05/2025 5:44 AM EST 01/05/2025 5:45 AM EST us Satnam Beckford MD LAB POINT OF CARE T EST DOCKED DEVICE UNSOLICITED RESULTS Final Result Performing Organization Address City/State/[facility] Co de Phone Number [facility] [address] [place] [address] * XR Chest 1 View (01/05/2025 5:22 AM EST) Anatomical Region Laterality Modality Chest Digital Radiogra phy Impressions 01/05/2025 9:32 AM EST Interval removal of the Gibson-Héctor catheter. Persistent hypoventilatory changes with slight increase [...] radiograph 01/04/2025. FINDINGS: Interval removal of the Gibson-Héctor catheter. Otherwise, stable support hardware. The contours [...] radiograph 01/04/2025. FINDINGS: Interval removal of the Gibson-Héctor catheter. Otherwise, stable supporthardware. The contours and cardiac silhouette are stable. Persistent lowlung volumes. Right basal opacities is slightly increased. Decreased leftbasal airspace opacities. Unchanged small left pleural effusion. Nopneumothorax. IMPRESSION: Interval removal of the Gibson-Héctor catheter. Persistent hypoventilatory changes with slight increase in right basalopacities, likely atelectasis with possible superimposed airspace disease.Improved aeration of left lung base. CRITICAL RESULT: No. COMMUNICATION: Per this written report. By electronically signing this report, I, the attending physician, [email or web address] I have personally reviewed the images/data for the aboveexamination(s) and agree with the final edited report. Drafted by Steven Garcia MD on 01/05/2025 8:20 AM Final report signed by Aditya Barrios MD on 01/05/2025 9:32 AM Satnam Beckford MD IMG XR PROCEDURES Final Res ult * Prepare Leukocyte Reduced RBC: 1 Units (01/05/2025 4:19 AM EST) Pathologist [facility] Product Code [id number] BLOO D BANK Dispense Status Transfused BLOOD BANK Blood Expiration Date [id number] BLOOD BANK Unit Number [id number] B LOOD BANK Product Blood Type 0600 BLOOD BANK Blood Type A- BLOOD BANK Crossmatch Compatible BLOOD BANK Other Kelvin Zapata DEHYDRATOR TENDER BLOOD BANK PRODUCT ORDERA BLES Final Result BLOOD BANK [address] [place] [address], * (ABNORMAL) Prothrombin Time/INR (01/05/2025 3:54 AM EST) Prothrombin Time 19.4(H) 12.0 - 14.3 sec LAB COAGULATION METHOD 01/05/2025 4:15 AM EST [facility] INR 1.6(H) 0.9 - 1.1 LAB COAGULATION METHOD 01/05/2025 4:15 AM EST [facility] Blood Arterial blood specimen / Unknown Arterial Puncture / Unknown 01/05/2025 3:54 AM EST 01/05/2025 4:02 AM EST Narrative [facility] - 01/05/2025 4:15 AM EST OPTIMAL INR RANGES FOR PATIENT ON ORAL ANTICOAGULANT THERAPY Prevention of venous thromboembolism INR 2.0 to 3.0 In patients with heart disease: Atrial fibrillation INR 2.0 to 3.0 Valvular heart disease INR 2.0 to 3.0 Tissue heart valves INR 2.0 to 3.0 Mechanical prosthetic valves INR 2.5 to 3.5 Prevention of recurrent VT INR 2.5 to 3.5 us Satnam Beckford MD LAB BLOOD ORDERABLES Final Result [facility] [address] [place] [address] * (ABNORMAL) CBC W/O Differential (01/05/2025 3:54 AM EST) WBC Count 8.52 3.70 - 10.30 10*3/uL LAB HEMATOLOGY METHOD 01/05/2025 4:15 AM EST [facility] RBC Count 2.59(L) 4.60 - 6.10 10*6/uL LAB HEMATOLOGY METHOD 01/05/2025 4:15 AM EST [facility] HGB 7.8(L) 13.7 - 17.5 g/dL LAB HEMATOLOGY METHOD 01/05/2025 4:15 AM EST [facility] HCT 22.9(L) 40.0 - 51.0 % LAB HEMATOLOGY METHOD 01/05/2025 4:15 AM EST [facility] Platelet Count 48(L) 155 - 369 10*3/uL LAB HEMATOLOGY METHOD 01/05/2025 4:15 AM EST [facility] MCV 88 79 - 98 fL LAB HEMATOLOGY METHOD 01/05/2025 4:15 AM EST [facility] MCH 30.1 26.0 - 32.0 pg LAB HEMATOLOGY METHOD 01/05/2025 4:15 AM EST [facility] MCHC 34.1 30.7 - 35.5 g/dL LAB HEMATOLOGY METHOD 01/05/2025 4:15 AM EST [facility] RDW 19.7(H) 11.5 - 14.5 % LAB HEMATOLOGY METHOD 01/05/2025 4:15 AM EST [facility] MPV 9.9 8.8 - 12.5 fL LAB HEMATOLOGY METHOD 01/05/2025 4:15 AM EST [facility] nRBC 0.0 <=0.0 per 100 WBCs LAB HEMATOLOGY METHOD 01/05/2025 4:15 AM EST [facility] Blood Arterial blood specimen / Unknown Arterial Puncture / Unknown 01/05/2025 3:54 AM EST 01/05/2025 4:02 AM EST us Satnam Beckford MD LAB BLOOD ORDERABLES Final Result [facility] [address] [place] [address] * (ABNORMAL) Comprehensive metabolic panel (01/05/2025 12:06 AM EST) Glucose, Plasma 134(H) 74 - 99 mg/dL 01/05/2025 12:56 AM EST [facility] BUN, Plasma 44(H) 7 - 21 mg/dL 01/05/2025 12:56 AM EST [facility] Creatinine, Plasma 1.84(H) 0.70 - 1.20 mg/dL 01/05/2025 12:56 AM EST [facility] BUN/Creatinine Ratio 01/05/2025 12:56 AM EST [facility] Sodium, Plasma 134(L) 136 - 145 mmol/L 01/05/2025 12:56 AM EST [facility] Potassium, Plasma 4.6 3.6 - 4.9 mmol/L 01/05/2025 12:56 AM EST [facility] Chloride, Plasma 105 97 - 107 mmol/L 01/05/2025 12:56 AM EST [facility] CO2, Plasma 16(L) 22 - 29 mmol/L 01/05/2025 12:56 AM EST [facility] Anion Gap 13 6 - 16 mmol/L 01/05/2025 12:56 AM EST [facility] Total Calcium, Plasma 8.5(L) 8.9 - 10.2 mg/dL 01/05/2025 12:56 AM EST [facility] Total Protein 5.4(L) 6.3 - 7.9 g/dL 01/05/2025 12:56 AM EST [facility] Albumin, Plasma 3.4(L) 3.5 - 5.2 g/dL 01/05/2025 12:56 AM EST [facility] AST, Plasma 150(H) 10 - 50 U/L 01/05/2025 12:56 AM EST [facility] ALT, Plasma 161(H) 10 - 50 U/L 01/05/2025 12:56 AM EST [facility] Alkaline Phosphatase, Plasma 68 40 - 115 U/L 01/05/2025 12:56 AM EST [facility] Total Bilirubin, Plasma 5.2(H) 0.2 - 1.1 mg/dL 01/05/2025 12:56 AM EST [facility] eGFRcr 45.5 mL/min/1.7 3m*2 01/05/2025 12:56 AM EST [facility] Comment:Reported eGFRcr in m L/min/1.73m2 is based the CKD-EPI 2020 equation that does not use a race coefficient. Blood Arterial blood specimen / Unknown Arterial Puncture / Unknown 01/05/2025 12:06 AM EST 01/05/2025 12:26 AM EST us Satnam Beckford MD LAB BLOOD ORDERABLES Final Result [facility] [address] [place] [address] * Magnesium, Plasma (01/05/2025 12:06 AM EST) Magnesium, Plasma 2.4 1.9 - 2.4 mg/dL 01/05/2025 12:56 AM EST [facility] Blood Arterial blood specimen / Unknown Arterial Puncture / Unknown 01/05/2025 12:06 AM EST 01/05/2025 12:26 AM EST Satnam Beckford MD LAB BLOOD ORDERABLES Final Result [facility] [address] [place] [address] * (ABNORMAL) Phosphorus, Plasma (01/05/2025 12:06 AM EST) Phosphorus, Plasma 6.1(H) 2.5 - 4.5 mg/dL 01/05/2025 12:56 AM EST [facility] Blood Arterial blood specimen / Unknown Arterial Puncture / Unknown 01/05/2025 12:06 AM EST 01/05/2025 12:26 AM EST Satnam Beckford MD LAB BLOOD ORDERABLES Final Result Performing Organization Address City/[facility] Co de Phone Number [facility] [address] [place] [address] * (ABNORMAL) Prothrombin Time/INR (01/05/2025 12:06 AM EST) Prothrombin Time 19.2(H) 12.0 - 14.3 sec LAB COAGULATION METHOD 01/05/2025 12:44 AM EST [facility] INR 1.6(H) 0.9 - 1.1 LAB COAGULATION METHOD 01/05/2025 12:44 AM EST [facility] Blood Arterial blood specimen / Unknown Arterial Puncture / Unknown 01/05/2025 12:06 AM EST 01/05/2025 12:26 AM EST Narrative [facility] - 01/05/2025 12:44 AM EST OPTIMAL INR RANGES FOR PATIENT ON ORAL ANTICOAGULANT THERAPY Prevention of venous thromboembolism INR 2.0 to 3.0 In patients with heart disease: Atrial fibrillation INR 2.0 to 3.0 Valvular heart disease INR 2.0 to 3.0 Tissue heart valves INR 2.0 to 3.0 Mechanical prosthetic valves INR 2.5 to 3.5 Prevention of recurrent VT INR 2.5 to 3.5 Satnam Beckford MD LAB BLOOD ORDERABLES Final Result [facility] [address] [place] [address] * (ABNORMAL) CBC W/O Differential (01/05/2025 12:06 AM EST) WBC Count 10.02 3.70 - 10.30 10*3/uL LAB HEMATOLOGY METHOD 01/05/2025 12:37 AM EST [facility] RBC Count 2.70(L) 4.60 - 6.10 10*6/uL LAB HEMATOLOGY METHOD 01/05/2025 12:37 AM EST [facility] HGB 8.2(L) 13.7 - 17.5 g/dL LAB HEMATOLOGY METHOD 01/05/2025 12:37 AM EST [facility] HCT 23.8(L) 40.0 - 51.0 % LAB HEMATOLOGY METHOD 01/05/2025 12:37 AM EST [facility] Platelet Count 56(L) 155 - 369 10*3/uL LAB HEMATOLOGY METHOD 01/05/2025 12:37 AM EST [facility] MCV 88 79 - 98 fL LAB HEMATOLOGY METHOD 01/05/2025 12:37 AM EST [facility] MCH 30.4 26.0 - 32.0 pg LAB HEMATOLOGY METHOD 01/05/2025 12:37 AM EST [facility] MCHC 34.5 30.7 - 35.5 g/dL LAB HEMATOLOGY METHOD 01/05/2025 12:37 AM EST [facility] RDW 19.9(H) 11.5 - 14.5 % LAB HEMATOLOGY METHOD 01/05/2025 12:37 AM EST [facility] MPV 10.4 8.8 - 12.5 fL LAB HEMATOLOGY METHOD 01/05/2025 12:37 AM EST [facility] nRBC 0.0 <=0.0 per 100 WBCs LAB HEMATOLOGY METHOD 01/05/2025 12:37 AM EST [facility] Blood Arterial blood specimen / Unknown Arterial Puncture / Unknown 01/05/2025 12:06 AM EST 01/05/2025 12:29 AM EST us Satnam Beckford MD LAB BLOOD ORDERABLES Final Result [facility] [address] [place] [address] * Transfuse RBC (01/04/2025 9:31 PM EST) Kelvin Zapata APRN BLOOD TRANSFUSION ORDERAB LES Final Result * Transfuse RBC: 1 Units (01/04/2025 9:31 PM EST) Kelvin Zapata APRN BLOOD TRANSFUSION ORDERAB LES Final Result * Prepare Leukocyte Reduced RBC: 1 Units (01/04/2025 8:13 PM EST) Product Code [id number] CH BLOO D BANK Dispense Status Transfused BLOOD BANK Blood Expiration Date [id number] BLOOD BANK Unit Number [id number] B LOOD BANK Product Blood Type 0600 BLOOD BANK Blood Type A- BLOOD BANK Crossmatch Compatible BLOOD BANK Other Kelvin Zapata APRN BLOOD BANK PRODUCT ORDERA BLES Final Result Performing Organization Address [facility]/State/ZIP Co de Phone Number BLOOD BANK [address] * (ABNORMAL) Prothrombin Time/INR (01/04/2025 7:49 PM EST) Prothrombin Time 20.3(H) 12.0 - 14.3 sec LAB COAGULATION METHOD 01/04/2025 8:10 PM EST [facility] INR 1.7(H) 0.9 - 1.1 LAB COAGULATION METHOD 01/04/2025 8:10 PM EST [facility] Blood Arterial blood specimen / Unknown Arterial Puncture / Unknown 01/04/2025 7:49 PM EST 01/04/2025 7:55 PM EST Narrative [facility] - 01/04/2025 8:10 PM EST OPTIMAL INR RANGES FOR PATIENT ON ORAL ANTICOAGULANT THERAPY Prevention of venous thromboembolism INR 2.0 to 3.0 In patients with heart disease: Atrial fibrillation INR 2.0 to 3.0 Valvular heart disease INR 2.0 to 3.0 Tissue heart valves INR 2.0 to 3.0 Mechanical prosthetic valves INR 2.5 to 3.5 Prevention of recurrent VT INR 2.5 to 3.5 us Satnam Beckford MD LAB BLOOD ORDERABLES Final Result [facility] [address] [place] [address] * (ABNORMAL) CBC W/O Differential (01/04/2025 7:49 PM EST) WBC Count 9.63 3.70 - 10.30 10*3/uL LAB HEMATOLOGY METHOD 01/04/2025 8:02 PM EST [facility] RBC Count 2.51(L) 4.60 - 6.10 10*6/uL LAB HEMATOLOGY METHOD 01/04/2025 8:02 PM EST [facility] HGB 7.6(L) 13.7 - 17.5 g/dL LAB HEMATOLOGY METHOD 01/04/2025 8:02 PM EST [facility] HCT 22.2(L) 40.0 - 51.0 % LAB HEMATOLOGY METHOD 01/04/2025 8:02 PM EST [facility] Platelet Count 52(L) 155 - 369 10*3/uL LAB HEMATOLOGY METHOD 01/04/2025 8:02 PM EST [facility] MCV 88 79 - 98 fL LAB HEMATOLOGY METHOD 01/04/2025 8:02 PM EST [facility] MCH 30.3 26.0 - 32.0 pg LAB HEMATOLOGY METHOD 01/04/2025 8:02 PM EST [facility] MCHC 34.2 30.7 - 35.5 g/dL LAB HEMATOLOGY METHOD 01/04/2025 8:02 PM EST [facility] RDW 20.0(H) 11.5 - 14.5 % LAB HEMATOLOGY METHOD 01/04/2025 8:02 PM EST [facility] MPV 9.7 8.8 - 12.5 fL LAB HEMATOLOGY METHOD 01/04/2025 8:02 PM [facility] nRBC 0.0 <=0.0 per 100 WBCs LAB HEMATOLOGY METHOD 01/04/2025 8:02 PM EST [facility] Blood Arterial blood specimen / Unknown Arterial Puncture / Unknown 01/04/2025 7:49 PM EST 01/04/2025 7:55 PM EST Satnam Beckford MD LAB BLOOD ORDERABLES Final Result Performing Organization Address City/[facility]/ZIP Co de Phone Number [facility] [address] [place] [address] * (ABNORMAL) Tacrolimus (01/04/2025 5:26 PM EST) Tacrolimus <2.0(L) 4.0 - 17.0 ng/mL 01/05/2025 7:52 AM EST [facility] Comment: Tacrolimus therapeutic range: Initial (<3 mo.) Maintenance Kidney 8-13 ng/mL 4-8 ng/mL Liver 8-13 ng/mL 4-8 ng/mL Heart 8-15 ng/mL 7-13 ng/mL Lung;Heart/Lung 8-17 ng/mL 8-13 ng/mL Blood Arterial blood specimen / Unknown Arterial Line / Unknown 01/04/2025 5:26 PM EST 01/04/2025 5:36 PM EST Narrative [facility] - 01/05/2025 7:52 AM EST Test performed by LC-MS/MS at the [facility]. This test was developed and its performance characteristics determined by [facility]. It has not been cleared or approved by the FDA. The laboratory is regulated under CLIA as qualified to perform high-complexity testing. This test is used for clinical purposes. Test performed by LC-MS/MS at the [facility]. This test was developed and its performance characteristics determined by [facility]. It has not been cleared or approved by the FDA. The laboratory is regulated under CLIA as qualified to perform high-complexity testing. This test is used for clinical purposes. Satnam Beckford MD LAB BLOOD ORDERABLES Final Result [facility] [address] [place] [address] * (ABNORMAL) POCT glucose meter (01/04/2025 5:24 PM EST) POCT Glucose 128(H) 74 - 99 mg/dL 01/04/2025 5:26 PM EST [facility] Comment:Accuracy of a glucos e result [...] for testing. Comment 01/04/2025 5:26 PM EST [facility] Marketing Business Analyst ID Tila Vazquez 5:26 PM EST [facility] Device ID [id number] 01/04/2025 5:26 PM EST [facility] Specimen Type POC Capillary 01/04/2025 5:26 PM EST [facility] Blood Capillary blood specimen / Unknown 01/04/2025 5:24 PM EST 01/04/2025 5:26 PM EST Satnam Beckford MD LAB POINT OF CARE T EST DOCKED DEVICE UNSOLICITED RESULTS Final Result Performing Organization Address City/State/[facility] Co de Phone Number [facility]ARE [facility] [address] [place] [address] * (ABNORMAL) Comprehensive metabolic panel (01/04/2025 3:01 PM EST) Glucose, Plasma 126(H) 74 - 99 mg/dL 01/04/2025 3:38 PM EST [facility] BUN, Plasma 36(H) 7 - 21 mg/dL 01/04/2025 3:38 PM EST [facility] Creatinine, Plasma 1.73(H) 0.70 - 1.20 mg/dL 01/04/2025 3:38 PM EST [facility] BUN/Creatinine Ratio 21 01/04/2025 3:38 PM EST [facility] Sodium, Plasma 138 136 - 145 mmol/L 01/04/2025 3:38 PM EST [facility] Potassium, Plasma 4.6 3.6 - 4.9 mmol/L 01/04/2025 3:38 PM EST [facility] Chloride, Plasma 107 97 - 107 mmol/L 01/04/2025 3:38 PM EST [facility] CO2, Plasma 16(L) 22 - 29 mmol/L 01/04/2025 3:38 PM EST [facility] Anion Gap 15 6 - 16 mmol/L 01/04/2025 3:38 PM EST [facility] Total Calcium, Plasma 8.5(L) 8.9 - 10.2 mg/dL 01/04/2025 3:38 PM EST [facility] Total Protein 5.3(L) 6.3 - 7.9 g/dL 01/04/2025 3:38 PM EST [facility] Albumin, Plasma 3.3(L) 3.5 - 5.2 g/dL 01/04/2025 3:38 PM EST [facility] AST, Plasma 210(H) 10 - 50 U/L 01/04/2025 3:38 PM EST [facility] ALT, Plasma 178(H) 10 - 50 U/L 01/04/2025 3:38 PM EST [facility] Alkaline Phosphatase, Plasma 69 40 - 115 U/L 01/04/2025 3:38 PM EST [facility] Total Bilirubin, Plasma 5.4(H) 0.2 - 1.1 mg/dL 01/04/2025 3:38 PM EST [facility] eGFRcr 49.0 mL/min/1.7 3m*2 01/04/2025 3:38 PM EST [facility] Comment:Reported eGFRcr in m L/min/1.73m2 is based the CKD-EPI 2020 equation that does not use a race coefficient. Blood Venous blood specimen / Unknown Venipuncture / Unknown 01/04/2025 3:01 PM EST 01/04/2025 3:10 PM EST us Satnam Beckford MD LAB BLOOD ORDERABLES Final Result [facility] [address] [place] [address] * Magnesium, Plasma (01/04/2025 3:01 PM EST) Magnesium, Plasma 2.4 1.9 - 2.4 mg/dL 01/04/2025 3:38 PM EST [facility] Blood Venous blood specimen / Unknown Venipuncture / Unknown 01/04/2025 3:01 PM EST 01/04/2025 3:10 PM EST Satnam Beckford MD LAB BLOOD ORDERABLES Final Result Performing Organization Address City/[facility]/ZIP Co de Phone Number [facility] [address] [place] [address] * (ABNORMAL) Phosphorus, Plasma (01/04/2025 3:01 PM EST) Phosphorus, Plasma 6.4(H) 2.5 - 4.5 mg/dL 01/04/2025 3:38 PM EST [facility] Blood Venous blood specimen / Unknown Venipuncture / Unknown 01/04/2025 3:01 PM EST 01/04/2025 3:10 PM EST Satnam Beckford MD LAB BLOOD ORDERABLES Final Result Performing Organization Address City/[facility]/ZIP Co de Phone Number [facility] [address] [place] [address] * (ABNORMAL) Prothrombin Time/INR (01/04/2025 3:01 PM EST) Prothrombin Time 20.2(H) 12.0 - 14.3 sec LAB COAGULATION METHOD 01/04/2025 3:38 PM EST [facility] INR 1.7(H) 0.9 - 1.1 LAB COAGULATION METHOD 01/04/2025 3:38 PM EST [facility] Blood Venous blood specimen / Unknown Venipuncture / Unknown 01/04/2025 3:01 PM EST 01/04/2025 3:10 PM EST Narrative [facility] - 01/04/2025 3:38 PM EST OPTIMAL INR RANGES FOR PATIENT ON ORAL ANTICOAGULANT THERAPY Prevention of venous thromboembolism INR 2.0 to 3.0 In patients with heart disease: Atrial fibrillation INR 2.0 to 3.0 Valvular heart disease INR 2.0 to 3.0 Tissue heart valves INR 2.0 to 3.0 Mechanical prosthetic valves INR 2.5 to 3.5 Prevention of recurrent VT INR 2.5 to 3.5 Satnam Beckford MD LAB BLOOD ORDERABLES Final Result [facility] [address] [place] [address] * (ABNORMAL) CBC W/O Differential (01/04/2025 3:01 PM EST) WBC Count 10.03 3.70 - 10.30 10*3/uL LAB HEMATOLOGY METHOD 01/04/2025 3:17 PM EST [facility] RBC Count 2.74(L) 4.60 - 6.10 10*6/uL LAB HEMATOLOGY METHOD 01/04/2025 3:17 PM EST [facility] HGB 8.2(L) 13.7 - 17.5 g/dL LAB HEMATOLOGY METHOD 01/04/2025 3:17 PM EST [facility] HCT 23.9(L) 40.0 - 51.0 % LAB HEMATOLOGY METHOD 01/04/2025 3:17 PM EST [facility] Platelet Count 61(L) 155 - 369 10*3/uL LAB HEMATOLOGY METHOD 01/04/2025 3:17 PM EST [facility] MCV 87 79 - 98 fL LAB HEMATOLOGY METHOD 01/04/2025 3:17 PM EST [facility] MCH 29.9 26.0 - 32.0 pg LAB HEMATOLOGY METHOD 01/04/2025 3:17 PM EST [facility] MCHC 34.3 30.7 - 35.5 g/dL LAB HEMATOLOGY METHOD 01/04/2025 3:17 PM EST [facility] RDW 19.8(H) 11.5 - 14.5 % LAB HEMATOLOGY METHOD 01/04/2025 3:17 PM EST [facility] MPV 10.0 8.8 - 12.5 fL LAB HEMATOLOGY METHOD 01/04/2025 3:17 PM EST [facility] nRBC 0.0 <=0.0 per 100 WBCs LAB HEMATOLOGY METHOD 01/04/2025 3:17 PM EST [facility] Blood Venous blood specimen / Unknown Venipuncture / Unknown 01/04/2025 3:01 PM EST 01/04/2025 3:10 PM EST us Satnam Beckford MD LAB BLOOD ORDERABLES Final Result [facility] [address] [place] [address] * Transfuse fresh frozen plasma (01/04/2025 2:20 PM EST) Camilla Soto APRN, PATTI BLOOD TRANSFUSION ORDERAB LES Final Result * Transfuse fresh frozen plasma: 1 Units (01/04/2025 2:20 PM EST) Camilla Soto APRN, PATTI BLOOD TRANSFUSION ORDERAB LES Final Result * Transfuse platelets (01/04/2025 12:11 PM EST) Camilla Soto APRN, PATTI BLOOD TRANSFUSION ORDERAB LES Final Result * Transfuse platelets: 1 Units (01/04/2025 12:11 PM EST) Camilla Soto APRN, [facility] BLOOD TRANSFUSION ORDERAB LES Final Result * (ABNORMAL) Hemoglobin and Hematocrit, Blood (01/04/2025 11:46 AM EST) [facility] HGB 8.5(L) 13.7 - 17.5 g/dL LAB HEMATOLOGY METHOD 01/04/2025 12:00 PM EST [facility] HCT 25.0(L) 40.0 - 51.0 % LAB HEMATOLOGY METHOD 01/04/2025 12:00 PM EST [facility] Blood Venous blood specimen / Unknown Venipuncture / Unknown 01/04/2025 11:46 AM EST 01/04/2025 11:52 AM EST Result [facility] Satnam Beckford MD LAB BLOOD ORDERABLES Final Result [facility] [address] [place] [address] * Transfuse RBC (01/04/2025 11:24 AM EST) us Camilla Soto APRN, PATTI BLOOD TRANSFUSION ORDERAB LES Final Result * Transfuse RBC: 1 Units (01/04/2025 11:24 AM EST) Camilla Soto APRN, DNP BLOOD TRANSFUSION ORDERAB LES Final Result * (ABNORMAL) POCT glucose meter (01/04/2025 11:14 AM EST) POCT Glucose 118(H) 74 - 99 mg/dL 01/04/2025 11:16 AM EST [facility] Comment:Accuracy of [...] for testing. Comment 01/04/2025 11:16 AM EST [facility] Marketing Business Analyst ID Tila Vazquez 11:16 AM EST [employer] [facility] Device ID [id number] 01/04/2025 11:16 AM EST [facility] Specimen Type POC Capillary 01/04/2025 11:16 AM EST [facility] Blood Capillary blood specimen / Unknown 01/04/2025 11:14 AM EST 01/04/2025 11:16 AM EST us Satnam Beckford MD LAB POINT OF CARE T EST DOCKED DEVICE UNSOLICITED RESULTS Final Result Performing Organization Address City/State/[facility] Co de Phone Number HEALTHCARE LAB [address] [place] [address] * US Abdomen Focused Region Liver (01/04/2025 [...] 11:39 AM Final report signed by Keenan Shpiley MD on 01/04/2025 11:42 AM Narrative 01/04/2025 [...] 01/04/2025 11:42 AM Satnam Beckford MD IMG US PROCEDURES Final Res ult * Prepare Leukocyte Reduced Platelets: 1 Units (01/04/2025 10:15 AM EST) Product Code [id number] BLOO D BANK Dispense Status Transfused BLOOD BANK Blood Expiration Date [id number] BLOOD BANK Unit Number [id number] B LOOD BANK Product Blood Type 0600 BLOOD BANK Blood Type A- BLOOD BANK Blood Venous blood specimen / Unknown Camilla Soto APRN, DNP BLOOD BANK PRODUCT ORDERA BLES Final Result Performing Organization Address City/State/[facility] Co de Phone Number BLOOD BANK [address] * Transfuse RBC (01/04/2025 9:53 AM EST) Camilla Soto APRN, DNP BLOOD TRANSFUSION ORDERAB LES Final Result * Transfuse RBC: 1 Units (01/04/2025 9:53 AM EST) Camilla Soto APRN, DNP BLOOD TRANSFUSION ORDERAB LES Final Result * [facility], E/M 30-74 MINUTES (01/04/2025 9:16 [...] Units (01/04/2025 8:51 AM EST) Product Code [id number] BLOO D BANK Dispense Status Transfused BLOOD BANK Blood Expiration Date [id number] BLOOD BANK Unit Number [id number] CH B LOOD BANK Product Blood Type 8400 BLOOD BANK Blood Type AB+ BLOOD BANK Blood Venous blood specimen / Unknown Camilla Soto APRN, PATTI BLOOD BANK PRODUCT ORDERA BLES Final Result Performing Organization Address City/State/[facility] de Phone Number BLOOD BANK [address] * (ABNORMAL) TEG Global Hemostasis with Lysis (01/04/2025 8:17 AM EST) R, Lysis 7.2 4.6 - 9.1 min 01/04/2025 9:39 AM EST [facility] [place], Rapid, Lysis <40.0(L) 52.0 - 70.0 mm 01/04/2025 9:39 AM EST [facility] [place], Fibrinogen, Lysis 8.7(L) 15.0 - 32.0 mm 01/04/2025 9:39 AM EST [facility] LY30 0.0 0.0 - 2.6 % 01/04/2025 9:39 AM EST [facility] Blood Arterial blood specimen / Unknown Arterial Line / Unknown 01/04/2025 8:17 AM EST 01/04/2025 8:29 AM EST Rivka Gonzalez DEHYDRATOR TENDER LAB BLOOD ORDERABLES Fin al Result Performing Organization Address City/[facility]/ZIP Co de Phone Number [facility] [address] [place] [address] * Prepare Leukocyte Reduced RBC: 1 Units (01/04/2025 8:04 AM EST) Product Code [id number] CH BLOO D BANK Dispense Status Transfused BLOOD BANK Blood Expiration Date [id number] BLOOD BANK Unit Number [id number] CH B LOOD BANK Product Blood Type 0600 BLOOD BANK Blood Type A- CH BLOOD BANK Crossmatch Compatible BLOOD BANK Other Camilla Soto APRN, [facility] BLOOD BANK PRODUCT ORDERA BLES Final Result Performing Organization Address [facility] de Phone Number BLOOD BANK [address] [place] [address], * Prepare Leukocyte Reduced RBC: 1 Units (01/04/2025 7:47 AM EST) Product Code [id number] CH BLOO D BANK Dispense Status Transfused BLOOD BANK Blood Expiration Date [id number] BLOOD BANK Unit Number [id number] CH B LOOD BANK Product Blood Type 0600 BLOOD BANK Blood Type A- CH BLOOD BANK Crossmatch Compatible BLOOD BANK Other Camilla Soto APRN, PATTI BLOOD BANK PRODUCT ORDERA BLES Final Result Performing Organization Address [facility] Co de Phone Number BLOOD BANK [address] [place] [address], * (ABNORMAL) Phosphorus, Plasma (01/04/2025 7:32 AM EST) Phosphorus, Plasma 6.3(H) 2.5 - 4.5 mg/dL 01/04/2025 8:10 AM EST [facility] Blood Venous blood specimen / Unknown Venipuncture / Unknown 01/04/2025 7:32 AM EST 01/04/2025 7:39 AM EST Satnam Beckford MD LAB BLOOD ORDERABLES Final Result [facility] [address] [place] [address] * Magnesium, Plasma (01/04/2025 7:32 AM EST) Magnesium, Plasma 2.4 1.9 - 2.4 mg/dL 01/04/2025 8:10 AM EST [facility] Blood Venous blood specimen / Unknown Venipuncture / Unknown 01/04/2025 7:32 AM EST 01/04/2025 7:39 AM EST Satnam Beckford MD LAB BLOOD ORDERABLES Final Result Performing Organization Address [facility] Co ct Phone Number [facility] [address] [place] [address] * (ABNORMAL) Prothrombin Time/INR (01/04/2025 7:32 AM EST) Prothrombin Time 23.4(H) 12.0 - 14.3 sec LAB COAGULATION METHOD 01/04/2025 7:55 AM EST [facility] INR 2.0(H) 0.9 - 1.1 LAB COAGULATION METHOD 01/04/2025 7:55 AM EST [facility] Blood Venous blood specimen / Unknown Venipuncture / Unknown 01/04/2025 7:32 AM EST 01/04/2025 7:38 AM EST Narrative [facility] - 01/04/2025 7:55 AM EST OPTIMAL INR RANGES FOR PATIENT ON ORAL ANTICOAGULANT THERAPY Prevention of venous thromboembolism INR 2.0 to 3.0 In patients with heart disease: Atrial fibrillation INR 2.0 to 3.0 Valvular heart disease INR 2.0 to 3.0 Tissue heart valves INR 2.0 to 3.0 Mechanical prosthetic valves INR 2.5 to 3.5 Prevention of recurrent VT INR 2.5 to 3.5 Satnam Beckford MD LAB BLOOD ORDERABLES Final Result [facility] [address] [place] [address] * (ABNORMAL) Comprehensive metabolic panel (01/04/2025 7:32 AM EST) Glucose, Plasma 130(H) 74 - 99 mg/dL 01/04/2025 8:10 AM EST [facility] BUN, Plasma 29(H) 7 - 21 mg/dL 01/04/2025 8:10 AM EST [facility] Creatinine, Plasma 1.64(H) 0.70 - 1.20 mg/dL 01/04/2025 8:10 AM EST [facility] BUN/Creatinine Ratio 18 01/04/2025 8:10 AM EST [facility] Sodium, Plasma 140 136 - 145 mmol/L 01/04/2025 8:10 AM EST [facility] Potassium, Plasma 4.6 3.6 - 4.9 mmol/L 01/04/2025 8:10 AM EST [facility] Chloride, Plasma 110(H) 97 - 107 mmol/L 01/04/2025 8:10 AM EST [facility] CO2, Plasma 16(L) 22 - 29 mmol/L 01/04/2025 8:10 AM EST [facility] Anion Gap 14 6 - 16 mmol/L 01/04/2025 8:10 AM EST [facility] Total Calcium, Plasma 8.3(L) 8.9 - 10.2 mg/dL 01/04/2025 8:10 AM EST [facility] Total Protein 4.6(L) 6.3 - 7.9 g/dL 01/04/2025 8:10 AM EST [facility] Albumin, Plasma 3.0(L) 3.5 - 5.2 g/dL 01/04/2025 8:10 AM EST [facility] AST, Plasma 264(H) 10 - 50 U/L 01/04/2025 8:10 AM EST [facility] ALT, Plasma 177(H) 10 - 50 U/L 01/04/2025 8:10 AM EST [facility] Alkaline Phosphatase, Plasma 63 40 - 115 U/L 01/04/2025 8:10 AM EST [facility] Total Bilirubin, Plasma 4.9(H) 0.2 - 1.1 mg/dL 01/04/2025 8:10 AM EST [facility] eGFRcr 52.2 mL/min/1.7 3m*2 01/04/2025 8:10 AM EST [facility] Comment:Reported eGFRcr in m L/min/1.73m2 is based the CKD-EPI 2020 equation that does not use a race coefficient. Blood Venous blood specimen / Unknown Venipuncture / Unknown 01/04/2025 7:32 AM EST 01/04/2025 7:39 AM EST us Satnam Beckford MD LAB BLOOD ORDERABLES Final Result [facility] [address] [place] [address] * (ABNORMAL) CBC W/O Differential (01/04/2025 7:32 AM EST) WBC Count 8.55 3.70 - 10.30 10*3/uL LAB HEMATOLOGY METHOD 01/04/2025 7:49 AM EST [facility] RBC Count 2.26(L) 4.60 - 6.10 10*6/uL LAB HEMATOLOGY METHOD 01/04/2025 7:49 AM EST [facility] HGB 6.7(L) 13.7 - 17.5 g/dL LAB HEMATOLOGY METHOD 01/04/2025 7:49 AM EST [facility] HCT 20.3(L) 40.0 - 51.0 % LAB HEMATOLOGY METHOD 01/04/2025 7:49 AM EST [facility] Platelet Count 51(L) 155 - 369 10*3/uL LAB HEMATOLOGY METHOD 01/04/2025 7:49 AM EST [facility] MCV 90 79 - 98 fL LAB HEMATOLOGY METHOD 01/04/2025 7:49 AM EST [facility] MCH 29.6 26.0 - 32.0 pg LAB HEMATOLOGY METHOD 01/04/2025 7:49 AM EST [facility] MCHC 33.0 30.7 - 35.5 g/dL LAB HEMATOLOGY METHOD 01/04/2025 7:49 AM EST [facility] RDW 21.7(H) 11.5 - 14.5 % LAB HEMATOLOGY METHOD 01/04/2025 7:49 AM EST [facility] MPV 10.7 8.8 - 12.5 fL LAB HEMATOLOGY METHOD 01/04/2025 7:49 AM EST [facility] nRBC 0.0 <=0.0 per 100 WBCs LAB HEMATOLOGY METHOD 01/04/2025 7:49 AM EST [facility] Blood Venous blood specimen / Unknown Venipuncture / Unknown 01/04/2025 7:32 AM EST 01/04/2025 7:39 AM EST Satnam Beckford MD LAB BLOOD ORDERABLES Final Result Performing Organization Address City/[facility]/ZIP Co de Phone Number [facility] [address] [place] [address] * (ABNORMAL) Hemoglobin and hematocrit, blood (01/04/2025 6:00 AM EST) HGB 7.4(L) 13.7 - 17.5 g/dL LAB HEMATOLOGY METHOD 01/04/2025 6:15 AM EST [facility] HCT 22.3(L) 40.0 - 51.0 % LAB HEMATOLOGY METHOD 01/04/2025 6:15 AM EST [facility] Blood Venous blood specimen / Unknown Venipuncture / Unknown 01/04/2025 6:00 AM EST 01/04/2025 6:06 AM EST us Kathy Jiang APRN, DNP LAB BLOOD ORDERABLES Fi nal Result [facility] [address] [place] [address] * (ABNORMAL) POCT glucose meter (01/04/2025 5:59 AM EST) POCT Glucose 129(H) 74 - 99 mg/dL 01/04/2025 6:01 AM EST [facility] Comment:Accuracy of a glucos e result [...] testing. Comment 01/04/2025 6:01 AM EST [facility] Marketing Business Analyst ID Eleazar Bradford 6:01 AM EST [facility] Device ID [id number] 01/04/2025 6:01 AM EST [facility] Specimen Type POC Arterial 01/04/2025 6:01 AM EST [facility] Blood Arterial blood specimen / Unknown 01/04/2025 5:59 AM EST 01/04/2025 6:01 AM EST Satnam Beckford MD LAB POINT OF CARE T EST DOCKED DEVICE UNSOLICITED RESULTS Final Result Performing Organization Address City/State/[facility] Co de Phone Number [facility] [address] [place] [address] * XR Chest 1 View (01/04/2025 4:55 AM EST) Anatomical Region Laterality Modality Chest Digital Radiogra phy Impressions 01/04/2025 11:41 AM EST Mild interval advancement of the Gibson-Héctor catheter and removal of the nasogastric tube. [...] day prior FINDINGS: Interval advancement of the Gibson-Héctor catheter, the tip now projects over the [...] day prior FINDINGS: Interval advancement of the Gibson-Héctor catheter, the tip now projects overthe right pulmonary artery. Interval removal of the nasogastric tube. Therest of the visualized support hardware are unchanged. Thecardiomediastinal contours unchanged. No pneumothorax. Small left pleuraleffusion. Mild pulmonary vascular congestion. Persistent low lung volume.Similar bibasal lung opacities which may represent atelectasis and/orairspace disease. IMPRESSION: Mild interval advancement of the Gibson-Héctor catheter and removal of thenasogastric tube. Otherwise, [...] RBC: 1 Units (01/03/2025 11:49 PM EST) Product Code A1533V32 BLOO D BANK Dispense Status Transfused BLOOD BANK Blood Expiration Date [id number] BLOOD BANK Unit Number [id number] B LOOD BANK Product Blood Type 0600 BLOOD BANK Blood Type A- BLOOD BANK Crossmatch Compatible BLOOD BANK Other us Kathy Jiang APRN, DNP BLOOD BANK PRODUCT ORDE RABLES Final Result BLOOD BANK [address] [place] [address], * (ABNORMAL) POCT glucose meter (01/03/2025 11:34 PM EST) Pathologist [facility] POCT Glucose 142(H) 74 - 99 mg/dL [...] Comment 01/03/2025 11:35 PM EST [facility] Marketing Business Analyst ID Eleazar Bradford 11:35 PM EST [facility] Device ID [id number] 01/03/2025 11:35 PM EST [facility] Specimen Type POC Arterial 01/03/2025 11:35 PM EST [facility] Blood Arterial blood specimen / Unknown 01/03/2025 11:34 PM EST 01/03/2025 11:35 PM EST Satnam Beckford MD LAB POINT OF CARE T EST DOCKED DEVICE UNSOLICITED RESULTS Final Result Performing Organization Address City/[facility]/ZIP Co de Phone Number [facility] [address] [place] [address] * (ABNORMAL) Phosphorus, Plasma (01/03/2025 11:29 PM EST) [facility] Phosphorus, Plasma 5.6(H) 2.5 - 4.5 mg/dL 01/04/2025 12:10 AM EST [facility] Blood Venous blood specimen / Unknown Venipuncture / Unknown 01/03/2025 11:29 PM EST 01/03/2025 11:40 PM EST Satnam Beckford MD LAB BLOOD ORDERABLES Final Result [facility] [address] [place] [address] * (ABNORMAL) Magnesium, Plasma (01/03/2025 11:29 PM EST) [facility] Magnesium, Plasma 2.5(H) 1.9 - 2.4 mg/dL 01/04/2025 12:10 AM EST [facility] Blood Venous blood specimen / Unknown Venipuncture / Unknown 01/03/2025 11:29 PM EST 01/03/2025 11:40 PM EST Satnam Beckford MD LAB BLOOD ORDERABLES Final Result Performing Organization Address [facility]/ZIP Co de Phone Number [facility] [address] [place] [address] * (ABNORMAL) Prothrombin Time/INR (01/03/2025 11:29 PM EST) Prothrombin Time 22.3(H) 12.0 - 14.3 sec LAB COAGULATION METHOD 01/04/2025 12:36 AM EST [facility] INR 1.9(H) 0.9 - 1.1 LAB COAGULATION METHOD 01/04/2025 12:36 AM EST [facility] Blood Venous blood specimen / Unknown Venipuncture / Unknown 01/03/2025 11:29 PM EST 01/03/2025 11:40 PM EST Narrative [facility] - 01/04/2025 12:36 AM EST OPTIMAL INR RANGES FOR PATIENT ON ORAL ANTICOAGULANT THERAPY Prevention of venous thromboembolism INR 2.0 to 3.0 In patients with heart disease: Atrial fibrillation INR 2.0 to 3.0 Valvular heart disease INR 2.0 to 3.0 Tissue heart valves INR 2.0 to 3.0 Mechanical prosthetic valves INR 2.5 to 3.5 Prevention of recurrent VT INR 2.5 to 3.5 Satnam Beckford MD LAB BLOOD ORDERABLES Final Result Performing Organization Address City/[facility]/ZIP Co de Phone Number [facility] [address] [place] [address] * (ABNORMAL) Comprehensive metabolic panel (01/03/2025 11:29 PM EST) Glucose, Plasma 163(H) 74 - 99 mg/dL 01/04/2025 12:10 AM EST [facility] BUN, Plasma 24(H) 7 - 21 mg/dL 01/04/2025 12:10 AM EST [facility] Creatinine, Plasma 1.40(H) 0.70 - 1.20 mg/dL 01/04/2025 12:10 AM [facility] BUN/Creatinine Ratio 17 01/04/2025 12:10 AM [facility] Sodium, Plasma 141 136 - 145 mmol/L 01/04/2025 12:10 AM [facility] Potassium, Plasma 4.3 3.6 - 4.9 mmol/L 01/04/2025 12:10 AM [facility] Chloride, Plasma 112(H) 97 - 107 mmol/L 01/04/2025 12:10 AM [facility] CO2, Plasma 18(L) 22 - 29 mmol/L 01/04/2025 12:10 AM [facility] Anion Gap 11 6 - 16 mmol/L 01/04/2025 12:10 AM [facility] Total Calcium, Plasma 8.5(L) 8.9 - 10.2 mg/dL 01/04/2025 12:10 AM [facility] Total Protein 4.5(L) 6.3 - 7.9 g/dL 01/04/2025 12:10 AM [facility] Albumin, Plasma 2.8(L) 3.5 - 5.2 g/dL 01/04/2025 12:10 AM [facility] AST, Plasma 459(H) 10 - 50 U/L 01/04/2025 12:10 AM [facility] ALT, Plasma 223(H) 10 - 50 U/L 01/04/2025 12:10 AM [facility] Alkaline Phosphatase, Plasma 80 40 - 115 U/L 01/04/2025 12:10 AM [facility] Total Bilirubin, Plasma 7.5(H) 0.2 - 1.1 mg/dL 01/04/2025 12:10 AM [facility] eGFRcr 63.2 mL/min/1.7 3m*2 01/04/2025 12:10 AM [facility] Comment:Reported eGFRcr in m L/min/1.73m2 is based the CKD-EPI 2020 equation that does not use a race coefficient. Blood Venous blood specimen / Unknown Venipuncture / Unknown 01/03/2025 11:29 PM EST 01/03/2025 11:40 PM EST Satnam Beckford MD LAB BLOOD ORDERABLES Final Result [facility] [address] [place] [address] * (ABNORMAL) CBC W/O Differential (01/03/2025 11:29 PM EST) WBC Count 8.83 3.70 - 10.30 10*3/uL LAB HEMATOLOGY METHOD 01/03/2025 11:47 PM EST [facility] RBC Count 2.59(L) 4.60 - 6.10 10*6/uL LAB HEMATOLOGY METHOD 01/03/2025 11:47 PM EST [facility] HGB 7.7(L) 13.7 - 17.5 g/dL LAB HEMATOLOGY METHOD 01/03/2025 11:47 PM EST [facility] HCT 23.3(L) 40.0 - 51.0 % LAB HEMATOLOGY METHOD 01/03/2025 11:47 PM EST [facility] Platelet Count 59(L) 155 - 369 10*3/uL LAB HEMATOLOGY METHOD 01/03/2025 11:47 PM EST [facility] MCV 90 79 - 98 fL LAB HEMATOLOGY METHOD 01/03/2025 11:47 PM EST [facility] MCH 29.7 26.0 - 32.0 pg LAB HEMATOLOGY METHOD 01/03/2025 11:47 PM EST [facility] MCHC 33.0 30.7 - 35.5 g/dL LAB HEMATOLOGY METHOD 01/03/2025 11:47 PM EST [facility] RDW 22.9(H) 11.5 - 14.5 % LAB HEMATOLOGY METHOD 01/03/2025 11:47 PM EST [facility] MPV 10.1 8.8 - 12.5 fL LAB HEMATOLOGY METHOD 01/03/2025 11:47 PM EST [facility] nRBC 0.0 <=0.0 per 100 WBCs LAB HEMATOLOGY METHOD 01/03/2025 11:47 PM EST [facility] Blood Venous blood specimen / Unknown Venipuncture / Unknown 01/03/2025 11:29 PM EST 01/03/2025 11:40 PM EST Satnam Beckford MD LAB BLOOD ORDERABLES Final Result Performing Organization Address City/[facility]/ZIP Co de Phone Number [facility] [address] [place] [address] * Transfuse fresh frozen plasma (01/03/2025 9:03 PM EST) us Kathy Jiang APRN, DNP BLOOD TRANSFUSION ORDER GIANFRANCO Final Result * Transfuse fresh frozen plasma: 1 Units (01/03/2025 9:03 PM EST) us Kathy Jiang APRN, DNP BLOOD TRANSFUSION ORDER GIANFRANCO Final Result * Prepare Fresh Frozen Plasma: 1 Units (01/03/2025 7:57 PM EST) Product Code [id number] CH BLOO D BANK Dispense Status Transfused BLOOD BANK Blood Expiration Date [id number] BLOOD BANK Unit Number [id number] B LOOD BANK Product Blood Type 6200 BLOOD BANK Blood Type A+ BLOOD BANK Blood Venous blood specimen / Unknown Kathy Jiang APRN, DNP BLOOD BANK PRODUCT ORDE RABLES Final Result Performing Organization Address [facility] Co de Phone Number BLOOD BANK [address] * (ABNORMAL) Phosphorus, Plasma (01/03/2025 7:23 PM EST) Phosphorus, Plasma 5.0(H) 2.5 - 4.5 mg/dL 01/03/2025 8:01 PM EST [facility] Blood Venous blood specimen / Unknown Venipuncture / Unknown 01/03/2025 7:23 PM EST 01/03/2025 7:30 PM EST Satnam Beckford MD LAB BLOOD ORDERABLES Final Result Performing Organization Address City/[facility]/ZIP Co de Phone Number [facility] [address] [place] [address] * (ABNORMAL) Magnesium, Plasma (01/03/2025 7:23 PM EST) Magnesium, Plasma 1.8(L) 1.9 - 2.4 mg/dL 01/03/2025 8:01 PM EST [facility] Blood Venous blood specimen / Unknown Venipuncture / Unknown 01/03/2025 7:23 PM EST 01/03/2025 7:30 PM EST Satnam Beckford MD LAB BLOOD ORDERABLES Final Result [facility] [address] [place] [address] * (ABNORMAL) Prothrombin Time/INR (01/03/2025 7:23 PM EST) Prothrombin Time 22.9(H) 12.0 - 14.3 sec LAB COAGULATION METHOD 01/03/2025 7:46 PM EST [facility] INR 2.0(H) 0.9 - 1.1 LAB COAGULATION METHOD 01/03/2025 7:46 PM EST [facility] Blood Venous blood specimen / Unknown Venipuncture / Unknown 01/03/2025 7:23 PM EST 01/03/2025 7:30 PM EST Narrative [facility] - 01/03/2025 7:46 PM EST OPTIMAL INR RANGES FOR PATIENT ON ORAL ANTICOAGULANT THERAPY Prevention of venous thromboembolism INR 2.0 to 3.0 In patients with heart disease: Atrial fibrillation INR 2.0 to 3.0 Valvular heart disease INR 2.0 to 3.0 Tissue heart valves INR 2.0 to 3.0 Mechanical prosthetic valves INR 2.5 to 3.5 Prevention of recurrent VT INR 2.5 to 3.5 Satnam Beckford MD LAB BLOOD ORDERABLES Final Result [facility] [address] [place] [address] * (ABNORMAL) Comprehensive metabolic panel (01/03/2025 7:23 PM EST) Glucose, Plasma 146(H) 74 - 99 mg/dL 01/03/2025 8:01 PM [facility] BUN, Plasma 21 7 - 21 mg/dL 01/03/2025 8:01 PM [facility] Creatinine, Plasma 1.25(H) 0.70 - 1.20 mg/dL 01/03/2025 8:01 PM [facility] BUN/Creatinine Ratio 17 01/03/2025 8:01 PM [facility] Sodium, Plasma 140 136 - 145 mmol/L 01/03/2025 8:01 PM [facility] Potassium, Plasma 4.5 3.6 - 4.9 mmol/L 01/03/2025 8:01 PM [facility] Chloride, Plasma 111(H) 97 - 107 mmol/L 01/03/2025 8:01 PM [facility] CO2, Plasma 19(L) 22 - 29 mmol/L 01/03/2025 8:01 PM [facility] Anion Gap 10 6 - 16 mmol/L 01/03/2025 8:01 PM [facility] Total Calcium, Plasma 8.8(L) 8.9 - 10.2 mg/dL 01/03/2025 8:01 PM [facility] Total Protein 4.5(L) 6.3 - 7.9 g/dL 01/03/2025 8:01 PM [facility] Albumin, Plasma 2.7(L) 3.5 - 5.2 g/dL 01/03/2025 8:01 PM [facility] AST, Plasma 612(H) 10 - 50 U/L 01/03/2025 8:01 PM [facility] ALT, Plasma 245(H) 10 - 50 U/L 01/03/2025 8:01 PM [facility] Alkaline Phosphatase, Plasma 84 40 - 115 U/L 01/03/2025 8:01 PM [facility] Total Bilirubin, Plasma 11.0(H) 0.2 - 1.1 mg/dL 01/03/2025 8:01 PM [facility] eGFRcr 72.4 mL/min/1.7 3m*2 01/03/2025 8:01 PM [facility] Comment:Reported eGFRcr in m L/min/1.73m2 is based the CKD-EPI 2020 equation that does not use a race coefficient. Blood Venous blood specimen / Unknown Venipuncture / Unknown 01/03/2025 7:23 PM EST 01/03/2025 7:30 PM EST Satnam Beckford MD LAB BLOOD ORDERABLES Final Result [facility] [address] [place] [address] * (ABNORMAL) CBC W/O Differential (01/03/2025 7:23 PM EST) WBC Count 8.84 3.70 - 10.30 10*3/uL LAB HEMATOLOGY METHOD 01/03/2025 7:37 PM EST [facility] RBC Count 2.72(L) 4.60 - 6.10 10*6/uL LAB HEMATOLOGY METHOD 01/03/2025 7:37 PM EST [facility] HGB 8.2(L) 13.7 - 17.5 g/dL LAB HEMATOLOGY METHOD 01/03/2025 7:37 PM EST [facility] HCT 24.9(L) 40.0 - 51.0 % LAB HEMATOLOGY METHOD 01/03/2025 7:37 PM EST [facility] Platelet Count 57(L) 155 - 369 10*3/uL LAB HEMATOLOGY METHOD 01/03/2025 7:37 PM EST [facility] MCV 92 79 - 98 fL LAB HEMATOLOGY METHOD 01/03/2025 7:37 PM EST [facility] MCH 30.1 26.0 - 32.0 pg LAB HEMATOLOGY METHOD 01/03/2025 7:37 PM EST [facility] MCHC 32.9 30.7 - 35.5 g/dL LAB HEMATOLOGY METHOD 01/03/2025 7:37 PM EST [facility] RDW 23.0(H) 11.5 - 14.5 % LAB HEMATOLOGY METHOD 01/03/2025 7:37 PM EST [facility] MPV 10.2 8.8 - 12.5 fL LAB HEMATOLOGY METHOD 01/03/2025 7:37 PM EST [facility] nRBC 0.0 <=0.0 per 100 WBCs LAB HEMATOLOGY METHOD 01/03/2025 7:37 PM EST [facility] Blood Venous blood specimen / Unknown Venipuncture / Unknown 01/03/2025 7:23 PM EST 01/03/2025 7:30 PM EST Satnam Beckford MD LAB BLOOD ORDERABLES Final Result Performing Organization Address City/[facility] Co de Phone Number [facility] [address] [place] [address] * (ABNORMAL) POCT glucose meter (01/03/2025 5:29 PM EST) POCT Glucose 139(H) 74 - 99 mg/dL 01/03/2025 5:31 PM EST [facility] Comment:Accuracy of [...] 01/03/2025 5:31 PM EST [facility] Marketing Business Analyst ID Elyssa Augustin 01/03/2025 5:31 PM EST [facility] Device ID [id number] 01/03/2025 5:31 PM EST [facility] Specimen Type POC Arterial 01/03/2025 5:31 PM EST [facility] Blood Arterial blood specimen / Unknown 01/03/2025 5:29 PM EST 01/03/2025 5:31 PM EST Satnam Beckford MD LAB POINT OF CARE T EST DOCKED DEVICE UNSOLICITED RESULTS Final Result Performing Organization Address City/[facility] Co de Phone Number [facility] [address] [place] [address] * Transfuse fresh frozen plasma (01/03/2025 4:30 PM EST) Camilla Soto DEHYDRATOR TENDER, DNP BLOOD TRANSFUSION ORDERAB LES Final Result * Transfuse fresh frozen plasma: 1 Units (01/03/2025 4:30 PM EST) Camilla Soto DEHYDRATOR TENDER, DNP BLOOD TRANSFUSION ORDERAB LES Final Result * (ABNORMAL) POCT glucose meter (01/03/2025 4:13 PM EST) [facility] POCT Glucose 141(H) 74 - 99 mg/dL 01/03/2025 4:15 PM EST [facility] Comment:Accuracy of a glucos e result [...] for testing. Comment 01/03/2025 4:15 PM EST [facility] Marketing Business Analyst ID Elyssa Augustin 01/03/2025 4:15 PM EST [facility] Device ID [id number] 01/03/2025 4:15 PM EST [facility] Specimen Type POC Arterial 01/03/2025 4:15 PM EST [facility] Blood Arterial blood specimen / Unknown 01/03/2025 4:13 PM EST 01/03/2025 4:15 PM EST Satnam Beckford MD LAB POINT OF CARE T EST DOCKED DEVICE UNSOLICITED RESULTS Final Result Performing Organization Address City/State/[facility] Co de Phone Number [facility] [address] [place] [address] * Tylor auris Surveillance by PCR (01/03/2025 4:09 PM EST) [facility] Tylor auris PCR Result Not Detected Not Detected 01/04/2025 11:52 AM EST [facility] Swab (Axilla and Groin) Non-blood Collection / Unknown 01/03/2025 4:09 PM EST 01/03/2025 4:28 PM EST Narrative [facility] - 01/04/2025 11:52 AM EST This PCR assay was developed and its performance characteristics determined by [facility] as appropriate for clinical purposes. This assay has not been cleared or approved by the FDA, but is performed in a CLIA regulated laboratory that is qualified to perform high-complexity testing. Satnam Beckford MD LAB MICROBIOLOGY - GENERAL ORDERABLES Final Result Performing Organization Address [facility]/ZIP Co de Phone Number [facility] [address] [place] [id number] * Multi Drug Resistance Test (01/03/2025 4:09 PM EST) Culture No growth at day 1 01/05/2025 5:36 AM EST [facility] Swab (Nares and Lauren Rectal) Non-blood Collection / Unknown 01/03/2025 4:09 PM EST 01/03/2025 4:28 PM EST Narrative [facility] - 01/05/2025 5:36 AM EST This test was developed and its performance characteristics determined by the [facility]. Although the media is FDA-approved, it is not FDA-approved for all specimen types submitted. The FDA has determined that such clearance or approval is not necessary. This test is used for surveillance purposes. It should not be regarded as investigational or for research. The [facility] is certified under the Clinical Laboratory Improvement Amendments of 1988 (CLIA-88) as qualified to perform high complexity clinical laboratory testing. Satnam Beckford MD LAB MICROBIOLOGY - GENERAL ORDERABLES Final Result Performing Organization Address [facility] Co de Phone Number [facility] [address] [place] [address] * (ABNORMAL) Blood gas panel with oximetry, mixed venous (01/03/2025 3:47 PM EST) pH, Mixed Venous 7.31(L) 7.32 - 7.43 LAB HEMATOLOGY METHOD 01/03/2025 3:56 PM EST [facility] pCO2, Mixed Venous 42 40 - 55 mmHg LAB HEMATOLOGY METHOD 01/03/2025 3:56 PM EST [facility] pO2, Mixed Venous 53(H) 25 - 40 mmHg LAB HEMATOLOGY METHOD 01/03/2025 3:56 PM EST [facility] SO2, Measured, Mixed Venous 87(H) 65 - 80 % LAB HEMATOLOGY METHOD 01/03/2025 3:56 PM EST [facility] Bicarbonate, Calculated, Mixed Venous 21(L) 22 - 26 mmol/L LAB HEMATOLOGY METHOD 01/03/2025 3:56 PM EST [facility] Base Excess, Mixed Venous -5.1(L) -2.0 - 3.0 mmol/L LAB HEMATOLOGY METHOD 01/03/2025 3:56 PM EST [facility] Hematocrit, Whole Blood 26.4(L) 40.0 - 51.0 % LAB HEMATOLOGY METHOD 01/03/2025 3:56 PM EST [facility] Sodium, Whole Blood 140 136 - 145 mmol/L LAB HEMATOLOGY METHOD 01/03/2025 3:56 PM EST [facility] Potassium, Whole Blood 4.5 3.6 - 4.9 mmol/L LAB HEMATOLOGY METHOD 01/03/2025 3:56 PM EST [facility] Chloride, Whole Blood 115(H) 97 - 107 mmol/L LAB HEMATOLOGY METHOD 01/03/2025 3:56 PM EST [facility] Ionized Calcium, Whole Blood 5.2(H) 4.6 - 5.1 mg/dL LAB HEMATOLOGY METHOD 01/03/2025 3:56 PM EST [facility] Glucose, Whole Blood 145(H) 74 - 99 mg/dL LAB HEMATOLOGY METHOD 01/03/2025 3:56 PM EST [facility] Oxyhemoglobin, Mixed Venous, Whole Blood 82.3(H) 40.0 - 70.0 % LAB HEMATOLOGY METHOD 01/03/2025 3:56 PM EST [facility] Hemoglobin Reduced, Mixed Venous, Whole Blood 12.6 % LAB HEMATOLOGY METHOD 01/03/2025 3:56 PM EST [facility] Total Hemoglobin, Mixed Venous, Whole Blood 8.6(L) 13.7 - 17.5 g/dL LAB HEMATOLOGY METHOD 01/03/2025 3:56 PM EST [facility] Blood Mixed venous blood specimen / Unknown Venipuncture / Unknown 01/03/2025 3:47 PM EST 01/03/2025 3:54 PM EST us Satnam Beckford MD LAB BLOOD ORDERABLES Final Result [facility] [address] [place] [address] * XR Abdomen 1 View (Adult Inpatients [...] of the abdomen. COMPARISON: None. FINDINGS: Limited [id number] abdominal radiograph for the purpose of locating tube position. The tip of the nasogastric tube is within the proximal stomach. Procedure Note Ernesto Rizo MD - 01/03/2025 CLINICAL INDICATION: Confirm proper placement of NG/OG tube TECHNIQUE: Supine radiograph of the abdomen. COMPARISON: None. FINDINGS: Limited [id number] abdominal radiograph for the purpose of locatingtube position. The tip of the nasogastric tube is within the proximal stomach. IMPRESSION: The tip of the gastric tube is within the proximal stomach CRITICAL RESULT: No. COMMUNICATION: Per this written report. Drafted by Ernesto Rizo MD on 01/03/2025 3:43 PM Final report signed by Ernesto Rizo MD on 01/03/2025 3:43 PM Satnam Beckford MD IMG XR PROCEDURES [...] tube tip overlies upper to midthoracic trachea. Gibson-Héctor catheter tip overlies main pulmonary artery. Right [...] Endotracheal tube tipoverlies upper to midthoracic trachea. Gibson-Héctor catheter tip overliesmain pulmonary artery. Right IJ [...] IMG XR PROCEDURES Final Res ult * [facility], E/M 30-74 MINUTES (01/03/2025 3:18 [...] Units (01/03/2025 3:02 PM EST) Product Code F9024H32 BLOO D BANK Dispense Status Transfused BLOOD BANK Blood Expiration Date [id number] BLOOD BANK Unit Number [id number] CH B LOOD BANK Product Blood Type 6200 BLOOD BANK Blood Type A+ BLOOD BANK Blood Venous blood specimen / Unknown Camilla Soto APRN, PATTI BLOOD BANK PRODUCT ORDERA BLES Final Result Performing Organization Address City/State/[facility] de Phone Number BLOOD BANK [address] [place] [address], * (ABNORMAL) Blood gas, arterial (01/03/2025 2:56 PM EST) pH, Arterial 7.31(L) 7.35 - 7.45 LAB HEMATOLOGY METHOD 01/03/2025 3:02 PM EST [facility] pCO2, Arterial 41 32 - 45 mmHg LAB HEMATOLOGY METHOD 01/03/2025 3:02 PM EST [facility] pO2, Arterial 107 83 - 108 mmHg LAB HEMATOLOGY METHOD 01/03/2025 3:02 PM EST [facility] SO2, Measured, Arterial 99(H) 94 - 98 % LAB HEMATOLOGY METHOD 01/03/2025 3:02 PM EST [facility] Base Excess, Arterial -5.2(L) -2.0 - 3.0 mmol/L LAB HEMATOLOGY METHOD 01/03/2025 3:02 PM EST [facility] Bicarbonate, Calculated, Arterial 21(L) 22 - 26 mmol/L LAB HEMATOLOGY METHOD 01/03/2025 3:02 PM EST [facility] Hematocrit, Whole Blood 25.7(L) 40.0 - 51.0 % LAB HEMATOLOGY METHOD 01/03/2025 3:02 PM EST [facility] Sodium, Whole Blood 139 136 - 145 mmol/L LAB HEMATOLOGY METHOD 01/03/2025 3:02 PM EST [facility] Potassium, Whole Blood 4.6 3.6 - 4.9 mmol/L LAB HEMATOLOGY METHOD 01/03/2025 3:02 PM EST [facility] Chloride, Whole Blood 115(H) 97 - 107 mmol/L LAB HEMATOLOGY METHOD 01/03/2025 3:02 PM EST [facility] Glucose, Whole Blood 146(H) 74 - 99 mg/dL LAB HEMATOLOGY METHOD 01/03/2025 3:02 PM EST [facility] Ionized Calcium, Whole Blood 5.1 4.6 - 5.1 mg/dL LAB HEMATOLOGY METHOD 01/03/2025 3:02 PM EST [facility] Lactate, Arterial, Whole Blood 1.7(H) 0.5 - 1.6 mmol/L LAB HEMATOLOGY METHOD 01/03/2025 3:02 PM EST [facility] Blood Arterial blood specimen / Unknown Arterial Puncture / Unknown 01/03/2025 2:56 PM EST 01/03/2025 3:01 PM EST us Satnam Beckford MD LAB BLOOD ORDERABLES Final Result Performing Organization Address City/[facility]/ZIP Co de Phone Number [facility] [address] [place] [address] * Phosphorus, Plasma (01/03/2025 2:54 PM EST) Phosphorus, Plasma 4.4 2.5 - 4.5 mg/dL 01/03/2025 3:58 PM EST [facility] Blood Venous blood specimen / Unknown Venipuncture / Unknown 01/03/2025 2:54 PM EST 01/03/2025 3:01 PM EST Satnam Beckford MD LAB BLOOD ORDERABLES Final Result [facility] [address] [place] [address] * (ABNORMAL) Magnesium, Plasma (01/03/2025 2:54 PM EST) Magnesium, Plasma 1.2(L) 1.9 - 2.4 mg/dL 01/03/2025 3:58 PM EST [facility] Blood Venous blood specimen / Unknown Venipuncture / Unknown 01/03/2025 2:54 PM EST 01/03/2025 3:01 PM EST Satnam Beckford MD LAB BLOOD ORDERABLES Final Result [facility] [address] [place] [address] * (ABNORMAL) Comprehensive metabolic panel (01/03/2025 2:54 PM EST) Glucose, Plasma 146(H) 74 - 99 mg/dL 01/03/2025 3:58 PM EST [facility] BUN, Plasma 17 7 - 21 mg/dL 01/03/2025 3:58 PM EST [facility] Creatinine, Plasma 1.02 0.70 - 1.20 mg/dL 01/03/2025 3:58 PM EST [facility] BUN/Creatinine Ratio 17 01/03/2025 3:58 PM EST [facility] Sodium, Plasma 140 136 - 145 mmol/L 01/03/2025 3:58 PM EST [facility] Potassium, Plasma 4.9 3.6 - 4.9 mmol/L 01/03/2025 3:58 PM EST [facility] Chloride, Plasma 114(H) 97 - 107 mmol/L 01/03/2025 3:58 PM EST [facility] CO2, Plasma 19(L) 22 - 29 mmol/L 01/03/2025 3:58 PM EST [facility] Anion Gap 7 6 - 16 mmol/L 01/03/2025 3:58 PM EST [facility] Total Calcium, Plasma 8.5(L) 8.9 - 10.2 mg/dL 01/03/2025 3:58 PM EST [facility] Total Protein 3.7(L) 6.3 - 7.9 g/dL 01/03/2025 3:58 PM EST [facility] Albumin, Plasma 2.2(L) 3.5 - 5.2 g/dL 01/03/2025 3:58 PM EST [facility] AST, Plasma 699(H) 10 - 50 U/L 01/03/2025 3:58 PM EST [facility] ALT, Plasma 243(H) 10 - 50 U/L 01/03/2025 3:58 PM EST [facility] Alkaline Phosphatase, Plasma 86 40 - 115 U/L 01/03/2025 3:58 PM EST [facility] Total Bilirubin, Plasma 11.2(H) 0.2 - 1.1 mg/dL 01/03/2025 3:58 PM EST [facility] eGFRcr 92.4 mL/min/1.7 3m*2 01/03/2025 3:58 PM EST [facility] Comment:Reported eGFRcr in m L/min/1.73m2 is based the CKD-EPI 2020 equation that does not use a race coefficient. Blood Venous blood specimen / Unknown Venipuncture / Unknown 01/03/2025 2:54 PM EST 01/03/2025 3:01 PM EST us Satnam Beckford MD LAB BLOOD ORDERABLES Final Result [facility] [address] [place] [address] * (ABNORMAL) CBC and Differential (01/03/2025 2:54 PM EST) WBC Count 6.95 3.70 - 10.30 10*3/uL LAB HEMATOLOGY METHOD 01/03/2025 3:09 PM EST [facility] RBC Count 2.80(L) 4.60 - 6.10 10*6/uL LAB HEMATOLOGY METHOD 01/03/2025 3:09 PM EST [facility] HGB 8.3(L) 13.7 - 17.5 g/dL LAB HEMATOLOGY METHOD 01/03/2025 3:09 PM EST [facility] HCT 26.1(L) 40.0 - 51.0 % LAB HEMATOLOGY METHOD 01/03/2025 3:09 PM EST [facility] Platelet Count 61(L) 155 - 369 10*3/uL LAB HEMATOLOGY METHOD 01/03/2025 3:09 PM [facility] MCV 93 79 - 98 fL LAB HEMATOLOGY METHOD 01/03/2025 3:09 PM [facility] Comment:Results inconsistent with previous lab findings. MCH 29.6 26.0 - 32.0 pg LAB HEMATOLOGY METHOD 01/03/2025 3:09 PM [facility] MCHC 31.8 30.7 - 35.5 g/dL LAB HEMATOLOGY METHOD 01/03/2025 3:09 PM [facility] RDW 22.7(H) 11.5 - 14.5 % LAB HEMATOLOGY METHOD 01/03/2025 3:09 PM [facility] MPV 9.4 8.8 - 12.5 fL LAB HEMATOLOGY METHOD 01/03/2025 3:09 PM [facility] nRBC 0.0 <=0.0 per 100 WBCs LAB HEMATOLOGY METHOD 01/03/2025 3:09 PM [facility] Differential Type Automated LAB HEMATOLOGY METHOD 01/03/2025 3:09 PM [facility] Neutrophils % 86 % LAB HEMATOLOGY METHOD 01/03/2025 3:09 PM [facility] Lymphocytes % 5 % LAB HEMATOLOGY METHOD 01/03/2025 3:09 PM [facility] Monocytes % 9 % LAB HEMATOLOGY METHOD 01/03/2025 3:09 PM [facility] Eosinophils % 0 % LAB HEMATOLOGY METHOD 01/03/2025 3:09 PM [facility] Basophils % 0 % LAB HEMATOLOGY METHOD 01/03/2025 3:09 PM [facility] Immature Granulocytes % 0 % LAB HEMATOLOGY METHOD 01/03/2025 3:09 PM [facility] Neutrophils Absolute 5.97 1.60 - 6.10 10*3/uL LAB HEMATOLOGY METHOD 01/03/2025 3:09 PM [facility] Lymphocytes Absolute 0.31(L) 1.20 - 3.90 10*3/uL LAB HEMATOLOGY METHOD 01/03/2025 3:09 PM [facility] Monocytes Absolute 0.61 0.30 - 0.90 10*3/uL LAB HEMATOLOGY METHOD 01/03/2025 3:09 PM [facility] Eosinophils Absolute 0.03 0.00 - 0.50 10*3/uL LAB HEMATOLOGY METHOD 01/03/2025 3:09 PM EST [facility] Basophils Absolute 0.01 0.00 - 0.10 10*3/uL LAB HEMATOLOGY METHOD 01/03/2025 3:09 PM EST [facility] Immature Granulocytes Absolute 0.02 0.00 - 0.06 10*3/uL LAB HEMATOLOGY METHOD 01/03/2025 3:09 PM EST [facility] Blood Venous blood specimen / Unknown Venipuncture / Unknown 01/03/2025 2:54 PM EST 01/03/2025 3:01 PM EST Narrative [facility] - 01/03/2025 3:09 PM EST Therapeutic decision making should be based on absolute values, rather than percentages. Satnam Beckford MD LAB BLOOD ORDERABLES Final Result Performing Organization Address City/[facility]/ZIP Co de Phone Number [facility] [address] [place] [address] * (ABNORMAL) TEG Global Hemostasis with Lysis (01/03/2025 2:54 PM EST) R, Lysis 8.2 4.6 - 9.1 min 01/03/2025 4:03 PM EST [facility] MA, Rapid, Lysis 40.1(L) 52.0 - 70.0 mm 01/03/2025 4:03 PM EST [facility] MA, Fibrinogen, Lysis 8.8(L) 15.0 - 32.0 mm 01/03/2025 4:03 PM EST [facility] LY30 0.0 0.0 - 2.6 % 01/03/2025 4:03 PM EST [facility] Blood Venous blood specimen / Unknown Venipuncture / Unknown 01/03/2025 2:54 PM EST 01/03/2025 3:01 PM EST Josafat Rivera MD LAB BLOOD ORDERABLES Final Res ult Performing Organization Address City/[facility]/ZIP Co de Phone Number [facility] [address] [place] [address] * (ABNORMAL) Fibrinogen (01/03/2025 2:54 PM EST) Fibrinogen, Quantitative (Clottable) 134(L) 208 - 459 mg/dL LAB COAGULATION METHOD 01/03/2025 3:52 PM EST [facility] Blood Venous blood specimen / Unknown Venipuncture / Unknown 01/03/2025 2:54 PM EST 01/03/2025 3:01 PM EST Josafat Rivera MD LAB BLOOD ORDERABLES Final Res ult Performing Organization Address City/[facility]/ZIP Co de Phone Number [facility] [address] [place] [address] * (ABNORMAL) APTT (01/03/2025 2:54 PM EST) aPTT 48(H) 25 - 35 sec LAB COAGULATION METHOD 01/03/2025 3:52 PM EST [facility] Blood Venous blood specimen / Unknown Venipuncture / Unknown 01/03/2025 2:54 PM EST 01/03/2025 3:01 PM EST us Josafat Rivera MD LAB BLOOD ORDERABLES Final Res ult Performing Organization Address [facility] Co de Phone Number [facility] [address] [place] [address] * (ABNORMAL) Protime-INR (01/03/2025 2:54 PM EST) Prothrombin Time 25.3(H) 12.0 - 14.3 sec LAB COAGULATION METHOD 01/03/2025 3:52 PM EST [facility] INR 2.3(H) 0.9 - 1.1 LAB COAGULATION METHOD 01/03/2025 3:52 PM EST [facility] Blood Venous blood specimen / Unknown Venipuncture / Unknown 01/03/2025 2:54 PM EST 01/03/2025 3:01 PM EST Narrative [facility] - 01/03/2025 3:52 PM EST OPTIMAL INR RANGES FOR PATIENT ON ORAL ANTICOAGULANT THERAPY Prevention of venous thromboembolism INR 2.0 to 3.0 In patients with heart disease: Atrial fibrillation INR 2.0 to 3.0 Valvular heart disease INR 2.0 to 3.0 Tissue heart valves INR 2.0 to 3.0 Mechanical prosthetic valves INR 2.5 to 3.5 Prevention of recurrent VT INR 2.5 to 3.5 Josafat Rivera MD LAB BLOOD ORDERABLES Final Res ult [facility] [address] [place] [address] * (ABNORMAL) POCT arterial blood gas gem (01/03/2025 2:13 PM EST) pH, Arterial 7.34(L) 7.35 - 7.45 01/03/2025 2:14 PM EST [facility] pCO2, Arterial 35 32 - 45 mm Hg 01/03/2025 2:14 PM EST [facility] pO2, Arterial 159(H) 83 - 108 mm Hg 01/03/2025 2:14 PM EST [facility] SO2, Arterial 99(H) 94 - 98 % 01/03/2025 2:14 PM [facility] Base Excess, Arterial -6.3(L) -2 - 3 mmol/L 01/03/2025 2:14 PM EST [facility] HCO3, Arterial 18.9(L) 22 - 26 mmol/L 01/03/2025 2:14 PM EST [facility] Total Hemoglobin, Arterial, Whole Blood 8.1(L) 13.7 - 17.5 g/dL 01/03/2025 2:14 PM EST [facility] Hematocrit, Arterial 24.0(L) 40 - 51.0 % 01/03/2025 2:14 PM EST [facility] Sodium, Arterial 139 136 - 145 mmol/L 01/03/2025 2:14 PM EST [facility] Potassium, Arterial 4.8 3.6 - 4.9 mmol/L 01/03/2025 2:14 PM EST [facility] Chloride, Whole Blood 112(H) 97 - 107 mmol/L 01/03/2025 2:14 PM [facility] Glucose, Arterial 165(H) 74 - 99 mg/dL 01/03/2025 2:14 PM [facility] Ionized Calcium, Arterial 5.4(H) 4.6 - 5.1 mg/dL 01/03/2025 2:14 PM EST [facility] Lactate, Arterial 1.5 0.5 - 1.6 mmol/L 01/03/2025 2:14 PM EST [facility] Body Temperature 37.0 Celsius 01/03/2025 2:14 PM EST [facility] pH, Temp Corrected, Arterial 7.34(L) 7.35 - 7.45 01/03/2025 2:14 PM EST [facility] pCO2, Temp Corrected, Arterial 35 32 - 45 mm Hg 01/03/2025 2:14 PM EST [facility] pO2, Temp Corrected, Arterial 159(H) 83 - 108 mm Hg 01/03/2025 2:14 PM EST [facility] Marketing Business Analyst ID Ronnie Jackson 01/03/2025 2:14 PM EST [facility] Blood Whole blood specimen / Unknown 01/03/2025 2:13 PM EST 01/03/2025 2:14 PM EST Satnam Beckford MD LAB POINT OF CARE T EST DOCKED DEVICE UNSOLICITED RESULTS Final Result [facility] [address] [place] [address] * (ABNORMAL) POCT arterial blood gas gem (01/03/2025 1:38 PM EST) pH, Arterial 7.34(L) 7.35 - 7.45 01/03/2025 1:40 PM EST [facility] pCO2, Arterial 36 32 - 45 mm Hg 01/03/2025 1:40 PM EST [facility] pO2, Arterial 157(H) 83 - 108 mm Hg 01/03/2025 1:40 PM EST [facility] SO2, Arterial 99(H) 94 - 98 % 01/03/2025 1:40 PM EST [facility] Base Excess, Arterial -5.8(L) -2 - 3 mmol/L 01/03/2025 1:40 PM EST [facility] HCO3, Arterial 19.4(L) 22 - 26 mmol/L 01/03/2025 1:40 PM EST [facility] Total Hemoglobin, Arterial, Whole Blood 8.5(L) 13.7 - 17.5 g/dL 01/03/2025 1:40 PM EST [facility] Hematocrit, Arterial 26.0(L) 40 - 51.0 % 01/03/2025 1:40 PM EST [facility] Sodium, Arterial 137 136 - 145 mmol/L 01/03/2025 1:40 PM EST [facility] Potassium, Arterial 5.1(H) 3.6 - 4.9 mmol/L 01/03/2025 1:40 PM EST [facility] Chloride, Whole Blood 112(H) 97 - 107 mmol/L 01/03/2025 1:40 PM EST [facility] Glucose, Arterial 143(H) 74 - 99 mg/dL 01/03/2025 1:40 PM EST [facility] Ionized Calcium, Arterial 5.4(H) 4.6 - 5.1 mg/dL 01/03/2025 1:40 PM EST [facility] Lactate, Arterial 1.6 0.5 - 1.6 mmol/L 01/03/2025 1:40 PM EST [facility] Body Temperature 37.0 Celsius 01/03/2025 1:40 PM EST [facility] pH, Temp Corrected, Arterial 7.34(L) 7.35 - 7.45 01/03/2025 1:40 PM EST [facility] pCO2, Temp Corrected, Arterial 36 32 - 45 mm Hg 01/03/2025 1:40 PM EST [facility] pO2, Temp Corrected, Arterial 157(H) 83 - 108 mm Hg 01/03/2025 1:40 PM EST [facility] Marketing Business Analyst ID Ronnie Jackson 01/03/2025 1:40 PM EST [facility] Blood Whole blood specimen / Unknown 01/03/2025 1:38 PM EST 01/03/2025 1:40 PM EST us Satnam Beckford MD LAB POINT OF CARE T EST DOCKED DEVICE UNSOLICITED RESULTS Final Result [facility] [address] [place] [address] * Transfuse RBC (01/03/2025 12:59 PM EST) us Josafat Rivera MD BLOOD TRANSFUSION ORDERABLES F inal Result * (ABNORMAL) POCT arterial blood gas gem (01/03/2025 12:54 PM EST) pH, Arterial 7.33(L) 7.35 - 7.45 01/03/2025 12:56 PM [facility] pCO2, Arterial 38 32 - 45 mm Hg 01/03/2025 12:56 PM [facility] pO2, Arterial 182(H) 83 - 108 mm Hg 01/03/2025 12:56 PM [facility] SO2, Arterial 99(H) 94 - 98 % 01/03/2025 12:56 PM [facility] Base Excess, Arterial -5.5(L) -2 - 3 mmol/L 01/03/2025 12:56 PM [facility] HCO3, Arterial 20.0(L) 22 - 26 mmol/L 01/03/2025 12:56 PM [facility] Total Hemoglobin, Arterial, Whole Blood 7.8(L) 13.7 - 17.5 g/dL 01/03/2025 12:56 PM [facility] Hematocrit, Arterial 23.0(L) 40 - 51.0 % 01/03/2025 12:56 PM [facility] Sodium, Arterial 138 136 - 145 mmol/L 01/03/2025 12:56 PM [facility] Potassium, Arterial 5.0(H) 3.6 - 4.9 mmol/L 01/03/2025 12:56 PM [facility] Chloride, Whole Blood 114(H) 97 - 107 mmol/L 01/03/2025 12:56 PM [facility] Glucose, Arterial 139(H) 74 - 99 mg/dL 01/03/2025 12:56 PM [facility] Ionized Calcium, Arterial 5.4(H) 4.6 - 5.1 mg/dL 01/03/2025 12:56 PM [facility] Lactate, Arterial 1.3 0.5 - 1.6 mmol/L 01/03/2025 12:56 PM [facility] Body Temperature 37.0 Celsius 01/03/2025 12:56 PM [facility] pH, Temp Corrected, Arterial 7.33(L) 7.35 - 7.45 01/03/2025 12:56 PM [facility] pCO2, Temp Corrected, Arterial 38 32 - 45 mm Hg 01/03/2025 12:56 PM EST [facility] pO2, Temp Corrected, Arterial 182(H) 83 - 108 mm Hg 01/03/2025 12:56 PM EST [facility] Marketing Business Analyst ID Ronnie Jackson 01/03/2025 12:56 PM EST [facility] Blood Whole blood specimen / Unknown 01/03/2025 12:54 PM EST 01/03/2025 12:56 PM EST Satnam Beckford MD LAB POINT OF CARE T EST DOCKED DEVICE UNSOLICITED RESULTS Final Result Performing Organization Address City/State/[facility] Co de Phone Number [facility] [address] [place] [id number] * Transfuse fresh frozen plasma (01/03/2025 12:25 PM EST) Josafat Rivera MD BLOOD TRANSFUSION ORDERABLES F inal Result * Transfuse platelets (01/03/2025 11:59 AM EST) Josafat Rivera MD BLOOD TRANSFUSION ORDERABLES F inal Result * Exception to Standard Practice, Pathologist Interpretation (01/03/2025 11:54 AM EST) Clinical Diagnosis, Exception to Standard Practice Liver transplan 01/05/2025 11:43 AM [facility] Interpretation , Exception to Standard [...] the diagnosis or interpretation. 01/05/2025 11:43 AM [facility] Pathologist Signature, Exception to Standard Practice Reviewed by: Gaston Serrano MD 01/05/2025 11:43 AM EST [facility] LAB CP ASR DISCLAIMER Yes 01/05/2025 11:43 AM EST BLOOD BANK 01/03/2025 11:5 4 AM EST 01/05/2025 9:20 AM EST Maciel Olson MD LAB BLOOD BANK TEST ORDERABLES F inal Result Performing Organization Address City/[facility]/ZIP Co de Phone Number BLOOD BANK [address] [place] [address], * Prepare Leukocyte Reduced Platelets: 1 Units (01/03/2025 11:49 AM EST) Product Code [id number] CH BLOO D BANK Dispense Status Transfused BLOOD BANK Blood Expiration Date [id number] BLOOD BANK Unit Number [id number] [facility] B LOOD BANK Product Blood Type 6200 BLOOD BANK Blood Type A+ BLOOD BANK Blood Venous blood specimen / Unknown Josafat Rivera MD BLOOD BANK PRODUCT ORDERABLES Final Result Performing Organization Address [facility] Co de Phone Number BLOOD BANK [address] [place] [address], * (ABNORMAL) TEG Global Hemostasis with Lysis (01/03/2025 11:46 AM EST) R, Lysis 9.9(H) 4.6 - 9.1 min 01/03/2025 12:55 PM EST [facility] MA, Rapid, Lysis <40.0(L) 52.0 - 70.0 mm 01/03/2025 12:55 PM EST [facility] MA, Fibrinogen, Lysis 8.4(L) 15.0 - 32.0 mm 01/03/2025 12:55 PM EST [facility] LY30 0.0 0.0 - 2.6 % 01/03/2025 12:55 PM EST [facility] Blood Arterial blood specimen / Unknown 01/03/2025 11:46 AM EST 01/03/2025 11:52 AM EST Comment:Pre-op diagnosis: Decompensation of cirrhosis of liver (CMS/HCC) [K72.90, K74.60] Josafat Rivera MD LAB BLOOD ORDERABLES Final Res ult Performing Organization Address [facility] Co de Phone Number [facility] [address] [place] [address] * (ABNORMAL) APTT (01/03/2025 11:46 AM EST) aPTT 59(H) 25 - 35 sec LAB COAGULATION METHOD 01/03/2025 12:20 PM EST [facility] Blood Arterial blood specimen / Unknown 01/03/2025 11:46 AM EST 01/03/2025 11:51 AM EST Comment:Pre-op diagnosis: Decompensation of cirrhosis of liver (CMS/HCC) [K72.90, K74.60] Josafat Rivera MD LAB BLOOD ORDERABLES Final Res ult Performing Organization Address [facility] Co de Phone Number [facility] [address] [place] [address] * (ABNORMAL) Prothrombin Time/INR (01/03/2025 11:46 AM EST) Prothrombin Time 25.6(H) 12.0 - 14.3 sec LAB COAGULATION METHOD 01/03/2025 12:20 PM EST [facility] INR 2.3(H) 0.9 - 1.1 LAB COAGULATION METHOD 01/03/2025 12:20 PM EST [facility] Blood Arterial blood specimen / Unknown 01/03/2025 11:46 AM EST 01/03/2025 11:51 AM EST Comment:Pre-op diagnosis: Decompensation of cirrhosis of liver (CMS/HCC) [K72.90, K74.60] Narrative [facility] - 01/03/2025 12:20 PM EST OPTIMAL INR RANGES FOR PATIENT ON ORAL ANTICOAGULANT THERAPY Prevention of venous thromboembolism INR 2.0 to 3.0 In patients with heart disease: Atrial fibrillation INR 2.0 to 3.0 Valvular heart disease INR 2.0 to 3.0 Tissue heart valves INR 2.0 to 3.0 Mechanical prosthetic valves INR 2.5 to 3.5 Prevention of recurrent VT INR 2.5 to 3.5 Josafat Rivera MD LAB BLOOD ORDERABLES Final Res ult Performing Organization Address [facility]/ZIP Co de Phone Number [facility] [address] [place] [address] * (ABNORMAL) Fibrinogen, Quantitative (Clottable) (01/03/2025 11:46 AM EST) Fibrinogen, Quantitative (Clottable) 136(L) 208 - 459 mg/dL LAB COAGULATION METHOD 01/03/2025 12:20 PM EST [facility] Blood Arterial blood specimen / Unknown 01/03/2025 11:46 AM EST 01/03/2025 11:51 AM EST Comment:Pre-op diagnosis: Decompensation of cirrhosis of liver (CMS/HCC) [K72.90, K74.60] Josafat Rivera MD LAB BLOOD ORDERABLES Final Res ult Performing Organization Address [facility] Co de Phone Number [facility] [address] [place] [address] * (ABNORMAL) Platelet Count, Blood (01/03/2025 11:46 AM EST) [facility] Platelet Count 52(L) 155 - 369 10*3/uL LAB HEMATOLOGY METHOD 01/03/2025 11:59 AM EST [facility] Blood Arterial blood specimen / Unknown 01/03/2025 11:46 AM EST 01/03/2025 11:51 AM EST Comment:Pre-op diagnosis: Decompensation of cirrhosis of liver (CMS/HCC) [K72.90, K74.60] Result [facility] Josafat Rivera MD LAB BLOOD ORDERABLES Final Res ult Performing Organization Address City/[facility]/ZIP Co de Phone Number [facility] [address] [place] [address] * (ABNORMAL) POCT arterial blood gas gem (01/03/2025 11:42 AM EST) pH, Arterial 7.28(L) 7.35 - 7.45 01/03/2025 11:43 AM [facility] pCO2, Arterial 43 32 - 45 mm Hg 01/03/2025 11:43 AM [facility] pO2, Arterial 207(H) 83 - 108 mm Hg 01/03/2025 11:43 AM [facility] SO2, Arterial 99(H) 94 - 98 % 01/03/2025 11:43 AM [facility] Base Excess, Arterial -6.2(L) -2 - 3 mmol/L 01/03/2025 11:43 AM [facility] HCO3, Arterial 20.2(L) 22 - 26 mmol/L 01/03/2025 11:43 AM [facility] Total Hemoglobin, Arterial, Whole Blood 8.5(L) 13.7 - 17.5 g/dL 01/03/2025 11:43 AM [facility] Hematocrit, Arterial 26.0(L) 40 - 51.0 % 01/03/2025 11:43 AM [facility] Sodium, Arterial 139 136 - 145 mmol/L 01/03/2025 11:43 AM [facility] Potassium, Arterial 4.7 3.6 - 4.9 mmol/L 01/03/2025 11:43 AM [facility] Chloride, Whole Blood 109(H) 97 - 107 mmol/L 01/03/2025 11:43 AM [facility] Glucose, Arterial 166(H) 74 - 99 mg/dL 01/03/2025 11:43 AM [facility] Ionized Calcium, Arterial 5.7(H) 4.6 - 5.1 mg/dL 01/03/2025 11:43 AM [facility] Lactate, Arterial 1.7(H) 0.5 - 1.6 mmol/L 01/03/2025 11:43 AM [facility] Body Temperature 37.0 Celsius 01/03/2025 11:43 AM [facility] pH, Temp Corrected, Arterial 7.28(L) 7.35 - 7.45 01/03/2025 11:43 AM [facility] pCO2, Temp Corrected, Arterial 43 32 - 45 mm Hg 01/03/2025 11:43 AM [facility] pO2, Temp Corrected, Arterial 207(H) 83 - 108 mm Hg 01/03/2025 11:43 AM EST [facility] Marketing Business Analyst ID Ronnie Jackson 01/03/2025 11:43 AM EST [facility] Blood Whole blood specimen / Unknown 01/03/2025 11:42 AM EST 01/03/2025 11:43 AM EST Satnam Beckford MD LAB POINT OF CARE T EST DOCKED DEVICE UNSOLICITED RESULTS Final Result [facility] [address] [place] [address] * Transfuse RBC (01/03/2025 11:30 AM EST) Josafat Rivera MD BLOOD TRANSFUSION ORDERABLES F inal Result * Transfuse fresh frozen plasma (01/03/2025 11:28 AM EST) Josafat Rivera MD BLOOD TRANSFUSION ORDERABLES F inal Result * (ABNORMAL) POCT arterial blood gas gem (01/03/2025 11:11 AM EST) pH, Arterial 7.28(L) 7.35 - 7.45 01/03/2025 11:12 AM EST [facility] pCO2, Arterial 40 32 - 45 mm Hg 01/03/2025 11:12 AM EST [facility] pO2, Arterial 292(H) 83 - 108 mm Hg 01/03/2025 11:12 AM EST [facility] SO2, Arterial 100(H) 94 - 98 % 01/03/2025 11:12 AM EST [facility] Base Excess, Arterial -7.4(L) -2 - 3 mmol/L 01/03/2025 11:12 AM EST [facility] HCO3, Arterial 18.8(L) 22 - 26 mmol/L 01/03/2025 11:12 AM EST [facility] Total Hemoglobin, Arterial, Whole Blood 8.0(L) 13.7 - 17.5 g/dL 01/03/2025 11:12 AM EST [facility] Hematocrit, Arterial 24.0(L) 40 - 51.0 % 01/03/2025 11:12 AM EST [facility] Sodium, Arterial 138 136 - 145 mmol/L 01/03/2025 11:12 AM EST [facility] Potassium, Arterial 4.3 3.6 - 4.9 mmol/L 01/03/2025 11:12 AM EST [facility] Chloride, Whole Blood 110(H) 97 - 107 mmol/L 01/03/2025 11:12 AM EST [facility] Glucose, Arterial 213(H) 74 - 99 mg/dL 01/03/2025 11:12 AM EST [facility] Ionized Calcium, Arterial 5.4(H) 4.6 - 5.1 mg/dL 01/03/2025 11:12 AM EST [facility] Lactate, Arterial 1.8(H) 0.5 - 1.6 mmol/L 01/03/2025 11:12 AM EST [facility] Body Temperature 37.0 Celsius 01/03/2025 11:12 AM EST [facility] pH, Temp Corrected, Arterial 7.28(L) 7.35 - 7.45 01/03/2025 11:12 AM EST [facility] pCO2, Temp Corrected, Arterial 40 32 - 45 mm Hg 01/03/2025 11:12 AM EST [facility] pO2, Temp Corrected, Arterial 292(H) 83 - 108 mm Hg 01/03/2025 11:12 AM EST [facility] Marketing Business Analyst ID Ronnie Jackson 01/03/2025 11:12 AM EST [facility] Blood Whole blood specimen / Unknown 01/03/2025 11:11 AM EST 01/03/2025 11:12 AM EST Satnam Beckford MD LAB POINT OF CARE T EST DOCKED DEVICE UNSOLICITED RESULTS Final Result [facility] [address] [place] [address] * Transfuse RBC (01/03/2025 11:00 AM EST) us Josafat Rivera MD BLOOD TRANSFUSION ORDERABLES F inal Result * (ABNORMAL) POCT arterial blood gas gem (01/03/2025 10:58 AM EST) pH, Arterial 7.36 7.35 - 7.45 01/03/2025 10:59 AM [facility] pCO2, Arterial 34 32 - 45 mm Hg 01/03/2025 10:59 AM [facility] pO2, Arterial 330(H) 83 - 108 mm Hg 01/03/2025 10:59 AM [facility] SO2, Arterial 100(H) 94 - 98 % 01/03/2025 10:59 AM [facility] Base Excess, Arterial -5.7(L) -2 - 3 mmol/L 01/03/2025 10:59 AM [facility] HCO3, Arterial 19.2(L) 22 - 26 mmol/L 01/03/2025 10:59 AM [facility] Total Hemoglobin, Arterial, Whole Blood 8.0(L) 13.7 - 17.5 g/dL 01/03/2025 10:59 AM [facility] Hematocrit, Arterial 24.0(L) 40 - 51.0 % 01/03/2025 10:59 AM [facility] Sodium, Arterial 138 136 - 145 mmol/L 01/03/2025 10:59 AM [facility] Potassium, Arterial 4.5 3.6 - 4.9 mmol/L 01/03/2025 10:59 AM [facility] Chloride, Whole Blood 111(H) 97 - 107 mmol/L 01/03/2025 10:59 AM [facility] Glucose, Arterial 111(H) 74 - 99 mg/dL 01/03/2025 10:59 AM [facility] Ionized Calcium, Arterial 5.3(H) 4.6 - 5.1 mg/dL 01/03/2025 10:59 AM [facility] Lactate, Arterial 1.3 0.5 - 1.6 mmol/L 01/03/2025 10:59 AM [facility] Body Temperature 37.0 Celsius 01/03/2025 10:59 AM [facility] pH, Temp Corrected, Arterial 7.36 7.35 - 7.45 01/03/2025 10:59 AM [facility] pCO2, Temp Corrected, Arterial 34 32 - 45 mm Hg 01/03/2025 10:59 AM [facility] pO2, Temp Corrected, Arterial 330(H) 83 - 108 mm Hg 01/03/2025 10:59 AM [facility] Marketing Business Analyst ID Ronnie Jackson 01/03/2025 10:59 AM EST [facility] Blood Whole blood specimen / Unknown 01/03/2025 10:58 AM EST 01/03/2025 10:59 AM EST Satnam Beckford MD LAB POINT OF CARE T EST DOCKED DEVICE UNSOLICITED RESULTS Final Result Performing Organization Address City/[facility]/ZIP Co de Phone Number [facility] [address] [place] [address] * (ABNORMAL) TEG Global Hemostasis with Lysis (01/03/2025 10:26 AM EST) R, Lysis 5.1 4.6 - 9.1 min 01/03/2025 11:30 AM EST [facility] MA, Rapid, Lysis <40.0(L) 52.0 - 70.0 mm 01/03/2025 11:30 AM EST [facility] MA, Fibrinogen, Lysis 9.4(L) 15.0 - 32.0 mm 01/03/2025 11:30 AM EST [facility] LY30 0.1 0.0 - 2.6 % 01/03/2025 11:30 AM EST [facility] Blood Arterial blood specimen / Unknown 01/03/2025 10:26 AM EST 01/03/2025 10:35 AM EST Comment:Pre-op diagnosis: Decompensation of cirrhosis of liver (CMS/HCC) [K72.90, K74.60] Josafat Rivera MD LAB BLOOD ORDERABLES Final Res ult [facility] [address] [place] [address] * (ABNORMAL) APTT (01/03/2025 10:26 AM EST) aPTT 46(H) 25 - 35 sec LAB COAGULATION METHOD 01/03/2025 11:06 AM EST [facility] Blood Arterial blood specimen / Unknown 01/03/2025 10:26 AM EST 01/03/2025 10:33 AM EST Comment:Pre-op diagnosis: Decompensation of cirrhosis of liver (CMS/HCC) [K72.90, K74.60] Josafat Rivera MD LAB BLOOD ORDERABLES Final Res ult Performing Organization Address [facility] Co de Phone Number [facility] [address] [place] [address] * (ABNORMAL) Prothrombin Time/INR (01/03/2025 10:26 AM EST) Prothrombin Time 23.6(H) 12.0 - 14.3 sec LAB COAGULATION METHOD 01/03/2025 11:06 AM EST [facility] INR 2.1(H) 0.9 - 1.1 LAB COAGULATION METHOD 01/03/2025 11:06 AM EST [facility] Blood Arterial blood specimen / Unknown 01/03/2025 10:26 AM EST 01/03/2025 10:33 AM EST Comment:Pre-op diagnosis: Decompensation of cirrhosis of liver (CMS/HCC) [K72.90, K74.60] Narrative [facility] - 01/03/2025 11:06 AM EST OPTIMAL INR RANGES FOR PATIENT ON ORAL ANTICOAGULANT THERAPY Prevention of venous thromboembolism INR 2.0 to 3.0 In patients with heart disease: Atrial fibrillation INR 2.0 to 3.0 Valvular heart disease INR 2.0 to 3.0 Tissue heart valves INR 2.0 to 3.0 Mechanical prosthetic valves INR 2.5 to 3.5 Prevention of recurrent VT INR 2.5 to 3.5 Josafat Rivera MD LAB BLOOD ORDERABLES Final Res ult Performing Organization Address [facility] Co de Phone Number [facility] [address] [place] [address] * (ABNORMAL) Fibrinogen, Quantitative (Clottable) (01/03/2025 10:26 AM EST) Fibrinogen, Quantitative (Clottable) 147(L) 208 - 459 mg/dL LAB COAGULATION METHOD 01/03/2025 11:06 AM EST [facility] Blood Arterial blood specimen / Unknown 01/03/2025 10:26 AM EST 01/03/2025 10:33 AM EST Comment:Pre-op diagnosis: Decompensation of cirrhosis of liver (CMS/HCC) [K72.90, K74.60] Josafat Rivera MD LAB BLOOD ORDERABLES Final Res ult Performing Organization Address [facility] Co de Phone Number [facility] [address] [place] [address] * (ABNORMAL) Platelet Count, Blood (01/03/2025 10:26 AM EST) Platelet Count 57(L) 155 - 369 10*3/uL LAB HEMATOLOGY METHOD 01/03/2025 10:40 AM EST [facility] Blood Arterial blood specimen / Unknown 01/03/2025 10:26 AM EST 01/03/2025 10:33 AM EST Comment:Pre-op diagnosis: Decompensation of cirrhosis of liver (CMS/HCC) [K72.90, K74.60] Josafat Rivera MD LAB BLOOD ORDERABLES Final Res ult Performing Organization Address [facility] Co de Phone Number [facility] [address] [place] [address] * Surgical Pathology Exam (01/03/2025 10:22 AM EST) Case Report Surgical Pathology Case: [id number] Authorizing Provider: Josafat Rivera MD Collected: 01/03/2025 1022 Ordering Location: [facility]PER[facility] Received: 01/05/2025 0755 Pathologist: Ashley De MD Specimen: Liver, [place] liver 01/07/2025 10:53 AM EST [facility] Final Diagnosis LIVER AND GALLBLADDER, OHKAY OWINGEH, TRANSPLANTATION: - CIRRHOSIS (HISTORY OF ALCOHOLIC CIRRHOSIS) (SEE COMMENT). - NO PATHOLOGIC ABNORMALITIES, GALLBLADDER. 01/07/2025 10:53 AM EST [facility] at 1053 EST Comment Sections show extensive [...] of dysplasia or malignancy. 01/07/2025 10:53 AM [facility] Clinical Information Decompensation of cirrhosis of liver (CMS/HCC) [K72.90, K74.60] 01/07/2025 10:53 AM [facility] Gross Description A. OHKAY OWINGEH LIVER The specimen is received fresh and [...] cm. No masses or polyps are identified. Electrical Engineering Draftsperson sections are submitted as follows: A1: Vascular margins A2: Segment two A3: Segment three A4: Seven six A5: Segment eight A6: Gallbladder Cold Time: 0 [facility] 01/07/2025 10:53 AM [facility] Note: A resident was involved in the service. I attest I examined the relevant preparations for the specimens and confirmed the diagnosis or interpretation. 01/07/2025 10:53 AM [facility] Tissue Liver structure / Unknown 01/03/2025 10:22 AM EST 01/05/2025 7:55 AM EST Comment:Pre-op diagnosis: Decompensation of cirrhosis of liver (CMS/HCC) [K72.90, K74.60] Josafat Rivera MD LAB PATHOLOGY ORDERABLES Final Result [facility] [address] [place] [address] * Transfuse fresh frozen plasma (01/03/2025 10:21 AM EST) Josafat Rivera MD BLOOD TRANSFUSION ORDERABLES F inal Result * Transfuse RBC (01/03/2025 10:18 AM EST) Josafat Rivera MD BLOOD TRANSFUSION ORDERABLES F inal Result * (ABNORMAL) POCT arterial blood gas gem (01/03/2025 10:15 AM EST) pH, Arterial 7.33(L) 7.35 - 7.45 01/03/2025 10:17 AM [facility] pCO2, Arterial 37 32 - 45 mm Hg 01/03/2025 10:17 AM [facility] pO2, Arterial 204(H) 83 - 108 mm Hg 01/03/2025 10:17 AM [facility] SO2, Arterial 99(H) 94 - 98 % 01/03/2025 10:17 AM [facility] Base Excess, Arterial -5.9(L) -2 - 3 mmol/L 01/03/2025 10:17 AM [facility] HCO3, Arterial 19.5(L) 22 - 26 mmol/L 01/03/2025 10:17 AM [facility] Total Hemoglobin, Arterial, Whole Blood 7.5(L) 13.7 - 17.5 g/dL 01/03/2025 10:17 AM EST [facility] Hematocrit, Arterial 23.0(L) 40 - 51.0 % 01/03/2025 10:17 AM [facility] Sodium, Arterial 138 136 - 145 mmol/L 01/03/2025 10:17 AM [facility] Potassium, Arterial 4.3 3.6 - 4.9 mmol/L 01/03/2025 10:17 AM [facility] Glucose, Arterial 129(H) 74 - 99 mg/dL 01/03/2025 10:17 AM [facility] Ionized Calcium, Arterial 3.9(L) 4.6 - 5.1 mg/dL 01/03/2025 10:17 AM EST [facility] Lactate, Arterial 1.7(H) 0.5 - 1.6 mmol/L 01/03/2025 10:17 AM EST [facility] Body Temperature 37.0 Celsius 01/03/2025 10:17 AM EST [facility] pH, Temp Corrected, Arterial 7.33(L) 7.35 - 7.45 01/03/2025 10:17 AM EST [facility] pCO2, Temp Corrected, Arterial 37 32 - 45 mm Hg 01/03/2025 10:17 AM EST [facility] pO2, Temp Corrected, Arterial 204(H) 83 - 108 mm Hg 01/03/2025 10:17 AM EST [facility] Marketing Business Analyst ID Ronnie Jackson 01/03/2025 10:17 AM EST [facility] Blood Whole blood specimen / Unknown 01/03/2025 10:15 AM EST 01/03/2025 10:17 AM EST Satnam Beckford MD LAB POINT OF CARE T EST DOCKED DEVICE UNSOLICITED RESULTS Final Result [facility] [address] [place] [address] * Prepare Fresh Frozen Plasma: 6 Units (01/03/2025 10:09 AM EST) Product Code [id number] CH BLOO D BANK Dispense Status Returned BLOOD BANK Blood Expiration Date BLOOD BANK Unit Number [id number] CH B LOOD BANK Product Blood Type 8400 BLOOD BANK Blood Type AB+ CH BLOOD BANK Product Code [id number] BLOO D BANK Dispense Status Transfused CH BLOOD BANK Blood Expiration Date BLOOD BANK Unit Number [id number] CH B LOOD BANK Product Blood Type 8400 BLOOD BANK Blood Type AB+ CH BLOOD BANK Product Code [id number] BLOO D BANK Dispense Status Returned BLOOD BANK Blood Expiration Date BLOOD BANK Unit Number [id number] CH B LOOD BANK Product Blood Type 6200 BLOOD BANK Blood Type A+ CH BLOOD BANK Product Code [id number] BLOO D BANK Dispense Status Transfused BLOOD BANK Blood Expiration Date BLOOD BANK Unit Number [id number] CH B LOOD BANK Product Blood Type 8400 BLOOD BANK Blood Type AB+ CH BLOOD BANK Product Code [id number] BLOO D BANK Dispense Status Returned BLOOD BANK Blood Expiration Date BLOOD BANK Unit Number [id number] CH B LOOD BANK Product Blood Type 6200 BLOOD BANK Blood Type A+ CH BLOOD BANK Product Code [id number] BLOO D BANK Dispense Status Returned BLOOD BANK Blood Expiration Date BLOOD BANK Unit Number [id number] CH B LOOD BANK Product Blood Type 2800 BLOOD BANK Blood Type AB- CH BLOOD BANK Blood Venous blood specimen / Unknown Josafat Rivera MD BLOOD BANK PRODUCT ORDERABLES Edited Result - Final Performing Organization Address City/State/[facility] Co de Phone Number BLOOD BANK [address] * Transfuse fresh frozen plasma (01/03/2025 10:00 AM EST) Josafat Rivera MD BLOOD TRANSFUSION ORDERABLES F inal Result * Transfuse RBC (01/03/2025 9:58 AM EST) Josafat Rivera MD BLOOD TRANSFUSION [...] 7.35 - 7.45 01/03/2025 9:37 AM EST [facility] pCO2, Arterial 38 32 - 45 mm Hg 01/03/2025 9:37 AM EST [facility] pO2, Arterial 182(H) 83 - 108 mm Hg 01/03/2025 9:37 AM [facility] SO2, Arterial 100(H) 94 - 98 % 01/03/2025 9:37 AM [facility] Base Excess, Arterial -4.8(L) -2 - 3 mmol/L 01/03/2025 9:37 AM [facility] HCO3, Arterial 20.5(L) 22 - 26 mmol/L 01/03/2025 9:37 AM [facility] Total Hemoglobin, Arterial, Whole Blood 8.2(L) 13.7 - 17.5 g/dL 01/03/2025 9:37 AM [facility] Hematocrit, Arterial 25.0(L) 40 - 51.0 % 01/03/2025 9:37 AM [facility] Sodium, Arterial 138 136 - 145 mmol/L 01/03/2025 9:37 AM [facility] Potassium, Arterial 4.1 3.6 - 4.9 mmol/L 01/03/2025 9:37 AM [facility] Chloride, Whole Blood 109(H) 97 - 107 mmol/L 01/03/2025 9:37 AM [facility] Glucose, Arterial 107(H) 74 - 99 mg/dL 01/03/2025 9:37 AM [facility] Ionized Calcium, Arterial 4.6 4.6 - 5.1 mg/dL 01/03/2025 9:37 AM [facility] Lactate, Arterial 1.2 0.5 - 1.6 mmol/L 01/03/2025 9:37 AM [facility] Body Temperature 37.0 Celsius 01/03/2025 9:37 AM [facility] pH, Temp Corrected, Arterial 7.34(L) 7.35 - 7.45 01/03/2025 9:37 AM [facility] pCO2, Temp Corrected, Arterial 38 32 - 45 mm Hg 01/03/2025 9:37 AM [facility] pO2, Temp Corrected, Arterial 182(H) 83 - 108 mm Hg 01/03/2025 9:37 AM [facility] Marketing Business Analyst ID Ronnie Jackson 01/03/2025 9:37 AM [facility] Blood Whole blood specimen / Unknown 01/03/2025 9:36 AM EST 01/03/2025 9:37 AM EST us Satnam Beckford MD LAB POINT OF CARE T EST DOCKED DEVICE UNSOLICITED RESULTS Final Result [facility] [address] [place] [address] * (ABNORMAL) POCT arterial blood gas gem (01/03/2025 9:03 AM EST) pH, Arterial 7.33(L) 7.35 - 7.45 01/03/2025 9:05 AM EST [facility] pCO2, Arterial 39 32 - 45 mm Hg 01/03/2025 9:05 AM [facility] pO2, Arterial 180(H) 83 - 108 mm Hg 01/03/2025 9:05 AM EST [facility] SO2, Arterial 99(H) 94 - 98 % 01/03/2025 9:05 AM [facility] Base Excess, Arterial -4.9(L) -2 - 3 mmol/L 01/03/2025 9:05 AM [facility] HCO3, Arterial 20.6(L) 22 - 26 mmol/L 01/03/2025 9:05 AM [facility] Total Hemoglobin, Arterial, Whole Blood 8.2(L) 13.7 - 17.5 g/dL 01/03/2025 9:05 AM [facility] Hematocrit, Arterial 25.0(L) 40 - 51.0 % 01/03/2025 9:05 AM [facility] Sodium, Arterial 138 136 - 145 mmol/L 01/03/2025 9:05 AM [facility] Potassium, Arterial 4.1 3.6 - 4.9 mmol/L 01/03/2025 9:05 AM [facility] Chloride, Whole Blood 108(H) 97 - 107 mmol/L 01/03/2025 9:05 AM [facility] Glucose, Arterial 109(H) 74 - 99 mg/dL 01/03/2025 9:05 AM [facility] Ionized Calcium, Arterial 4.7 4.6 - 5.1 mg/dL 01/03/2025 9:05 AM [facility] Lactate, Arterial 1.1 0.5 - 1.6 mmol/L 01/03/2025 9:05 AM EST [facility] Body Temperature 37.0 Celsius 01/03/2025 9:05 AM EST [facility] pH, Temp Corrected, Arterial 7.33(L) 7.35 - 7.45 01/03/2025 9:05 AM EST [facility] pCO2, Temp Corrected, Arterial 39 32 - 45 mm Hg 01/03/2025 9:05 AM EST [facility] pO2, Temp Corrected, Arterial 180(H) 83 - 108 mm Hg 01/03/2025 9:05 AM EST [facility] Marketing Business Analyst ID Ronnie Jackson 01/03/2025 9:05 AM EST [facility] Blood Whole blood specimen / Unknown 01/03/2025 9:03 AM EST 01/03/2025 9:05 AM EST Satnam Beckford MD LAB POINT OF CARE T EST DOCKED DEVICE UNSOLICITED RESULTS Final Result Performing Organization Address City/State/[facility] de Phone Number [facility] [address] [place] [address] * Transfuse RBC (01/03/2025 8:39 AM EST) Josafat Rivera MD BLOOD TRANSFUSION ORDERABLES F inal Result * Transfuse fresh frozen plasma (01/03/2025 8:39 AM EST) Josafat Rivera MD BLOOD TRANSFUSION ORDERABLES F inal Result * (ABNORMAL) POCT arterial blood gas gem (01/03/2025 8:37 AM EST) pH, Arterial 7.35 7.35 - 7.45 01/03/2025 8:38 AM EST [facility] pCO2, Arterial 38 32 - 45 mm Hg 01/03/2025 8:38 AM EST [facility] pO2, Arterial 81(L) 83 - 108 mm Hg 01/03/2025 8:38 AM EST [facility] SO2, Arterial 97 94 - 98 % 01/03/2025 8:38 AM EST [facility] Base Excess, Arterial -4.2(L) -2 - 3 mmol/L 01/03/2025 8:38 AM EST [facility] HCO3, Arterial 21.0(L) 22 - 26 mmol/L 01/03/2025 8:38 AM [facility] Total Hemoglobin, Arterial, Whole Blood 7.5(L) 13.7 - 17.5 g/dL 01/03/2025 8:38 AM [facility] Hematocrit, Arterial 23.0(L) 40 - 51.0 % 01/03/2025 8:38 AM [facility] Sodium, Arterial 138 136 - 145 mmol/L 01/03/2025 8:38 AM [facility] Potassium, Arterial 3.9 3.6 - 4.9 mmol/L 01/03/2025 8:38 AM [facility] Chloride, Whole Blood 109(H) 97 - 107 mmol/L 01/03/2025 8:38 AM [facility] Glucose, Arterial 98 74 - 99 mg/dL 01/03/2025 8:38 AM [facility] Ionized Calcium, Arterial 4.2(L) 4.6 - 5.1 mg/dL 01/03/2025 8:38 AM [facility] Lactate, Arterial 0.9 0.5 - 1.6 mmol/L 01/03/2025 8:38 AM [facility] Body Temperature 37.0 Celsius 01/03/2025 8:38 AM [facility] pH, Temp Corrected, Arterial 7.35 7.35 - 7.45 01/03/2025 8:38 AM [facility] pCO2, Temp Corrected, Arterial 38 32 - 45 mm Hg 01/03/2025 8:38 AM [facility] pO2, Temp Corrected, Arterial 81(L) 83 - 108 mm Hg 01/03/2025 8:38 AM EST [facility] Marketing Business Analyst ID Ronnie Jackson 01/03/2025 8:38 AM [facility] Blood Whole blood specimen / Unknown 01/03/2025 8:37 AM EST 01/03/2025 8:38 AM EST us Satnam Beckford MD LAB POINT OF CARE T EST DOCKED DEVICE UNSOLICITED RESULTS Final Result Performing Organization Address City/State/[facility] Co ct Phone Number [facility] [address] [place] [phone] * Transfuse RBC (01/03/2025 8:07 AM EST) [...] - 32.3 hectoPascals 01/03/2025 8:42 AM EST [facility] Fribrinogen Contribution to Clot Stiffness 1.1 0.9 - 4.2 hectoPascals 01/03/2025 8:42 AM EST [facility] Marketing Business Analyst ID [id number] 01/03/2025 8:42 AM EST HEALTHCARE LAB Device ID [id number] 01/03/2025 8:42 AM EST [facility]ALTH[facility]ARE [facility] Blood Venous blood specimen / Unknown 01/03/2025 8:01 AM EST 01/03/2025 8:42 AM EST Narrative HEALTHCARE LAB - 01/03/2025 8:42 AM EST ProfileName= us Satnam Beckford MD LAB POINT OF CARE T EST DOCKED DEVICE UNSOLICITED RESULTS Final Result [facility] [address] [place] [id number] * (ABNORMAL) POCT arterial blood gas gem (01/03/2025 7:59 AM EST) pH, Arterial 7.33(L) 7.35 - 7.45 01/03/2025 8:01 AM [facility] pCO2, Arterial 43 32 - 45 mm Hg 01/03/2025 8:01 AM [facility] pO2, Arterial 95 83 - 108 mm Hg 01/03/2025 8:01 AM [facility] SO2, Arterial 98 94 - 98 % 01/03/2025 8:01 AM [facility] Base Excess, Arterial -3.0(L) -2 - 3 mmol/L 01/03/2025 8:01 AM [facility] HCO3, Arterial 22.7 22 - 26 mmol/L 01/03/2025 8:01 AM [facility] Total Hemoglobin, Arterial, Whole Blood 7.8(L) 13.7 - 17.5 g/dL 01/03/2025 8:01 AM [facility] Hematocrit, Arterial 23.0(L) 40 - 51.0 % 01/03/2025 8:01 AM [facility] Sodium, Arterial 138 136 - 145 mmol/L 01/03/2025 8:01 AM [facility] Potassium, Arterial 3.8 3.6 - 4.9 mmol/L 01/03/2025 8:01 AM [facility] Chloride, Whole Blood 108(H) 97 - 107 mmol/L 01/03/2025 8:01 AM [facility] Glucose, Arterial 110(H) 74 - 99 mg/dL 01/03/2025 8:01 AM [facility] Ionized Calcium, Arterial 4.8 4.6 - 5.1 mg/dL 01/03/2025 8:01 AM [facility] Lactate, Arterial 0.8 0.5 - 1.6 mmol/L 01/03/2025 8:01 AM [facility] Body Temperature 37.0 Celsius 01/03/2025 8:01 AM [facility] pH, Temp Corrected, Arterial 7.33(L) 7.35 - 7.45 01/03/2025 8:01 AM EST [facility] pCO2, Temp Corrected, Arterial 43 32 - 45 mm Hg 01/03/2025 8:01 AM EST [facility] pO2, Temp Corrected, Arterial 95 83 - 108 mm Hg 01/03/2025 8:01 AM EST [facility] Marketing Business Analyst ID Josafat Rivera 01/03/2025 8:01 AM EST [facility] Blood Whole blood specimen / Unknown 01/03/2025 7:59 AM EST 01/03/2025 8:01 AM EST us Satnam Beckford MD LAB POINT OF CARE T EST DOCKED DEVICE UNSOLICITED RESULTS Final Result Performing Organization Address [facility] Co de Phone Number [facility] [address] [place] [address] * (ABNORMAL) TEG Global Hemostasis with Lysis (01/03/2025 7:53 AM EST) R, Lysis 8.2 4.6 - 9.1 min 01/03/2025 9:02 AM EST [facility] MA, Rapid, Lysis 42.7(L) 52.0 - 70.0 mm 01/03/2025 9:02 AM EST [facility] MA, Fibrinogen, Lysis 12.0(L) 15.0 - 32.0 mm 01/03/2025 9:02 AM EST [facility] LY30 0.4 0.0 - 2.6 % 01/03/2025 9:02 AM EST [facility] Blood Arterial blood specimen / Unknown 01/03/2025 7:53 AM EST 01/03/2025 8:05 AM EST Comment:Pre-op diagnosis: Decompensation of cirrhosis of liver (CMS/HCC) [K72.90, K74.60] us Josafat Rivera MD LAB BLOOD ORDERABLES Final Res ult Performing Organization Address City/[facility]/ZIP Co de Phone Number [facility] [address] [place] [address] * (ABNORMAL) APTT (01/03/2025 7:53 AM EST) aPTT 62(H) 25 - 35 sec LAB COAGULATION METHOD 01/03/2025 8:37 AM EST [facility] Blood Arterial blood specimen / Unknown 01/03/2025 7:53 AM EST 01/03/2025 8:03 AM EST Comment:Pre-op diagnosis: Decompensation of cirrhosis of liver (CMS/HCC) [K72.90, K74.60] us Josafat Rivera MD LAB BLOOD ORDERABLES Final Res ult Performing Organization Address [facility] Co de Phone Number [facility] [address] [place] [address] * (ABNORMAL) Prothrombin Time/INR (01/03/2025 7:53 AM EST) Prothrombin Time 29.3(H) 12.0 - 14.3 sec LAB COAGULATION METHOD 01/03/2025 8:37 AM EST [facility] INR 2.8(H) 0.9 - 1.1 LAB COAGULATION METHOD 01/03/2025 8:37 AM EST [facility] Blood Arterial blood specimen / Unknown 01/03/2025 7:53 AM EST 01/03/2025 8:03 AM EST Comment:Pre-op diagnosis: Decompensation of cirrhosis of liver (CMS/HCC) [K72.90, K74.60] Narrative [facility] - 01/03/2025 8:37 AM EST OPTIMAL INR RANGES FOR PATIENT ON ORAL ANTICOAGULANT THERAPY Prevention of venous thromboembolism INR 2.0 to 3.0 In patients with heart disease: Atrial fibrillation INR 2.0 to 3.0 Valvular heart disease INR 2.0 to 3.0 Tissue heart valves INR 2.0 to 3.0 Mechanical prosthetic valves INR 2.5 to 3.5 Prevention of recurrent VT INR 2.5 to 3.5 us Josafat Rivera MD LAB BLOOD ORDERABLES Final Res ult Performing Organization Address City/[facility]/ZIP Co de Phone Number [facility] [address] [place] [address] * (ABNORMAL) Fibrinogen, Quantitative (Clottable) (01/03/2025 7:53 AM EST) Fibrinogen, Quantitative (Clottable) 148(L) 208 - 459 mg/dL LAB COAGULATION METHOD 01/03/2025 8:37 AM EST [facility] Blood Arterial blood specimen / Unknown 01/03/2025 7:53 AM EST 01/03/2025 8:03 AM EST Comment:Pre-op diagnosis: Decompensation of cirrhosis of liver (CMS/HCC) [K72.90, K74.60] us Josafat Rivera MD LAB BLOOD ORDERABLES Final Res ult [facility] [address] [place] [address] * (ABNORMAL) CBC W/O Differential (01/03/2025 7:53 AM EST) WBC Count 3.60(L) 3.70 - 10.30 10*3/uL LAB HEMATOLOGY METHOD 01/03/2025 8:20 AM EST [facility] RBC Count 2.45(L) 4.60 - 6.10 10*6/uL LAB HEMATOLOGY METHOD 01/03/2025 8:20 AM EST [facility] HGB 7.8(L) 13.7 - 17.5 g/dL LAB HEMATOLOGY METHOD 01/03/2025 8:20 AM EST [facility] HCT 25.7(L) 40.0 - 51.0 % LAB HEMATOLOGY METHOD 01/03/2025 8:20 AM EST [facility] Platelet Count 69(L) 155 - 369 10*3/uL LAB HEMATOLOGY METHOD 01/03/2025 8:20 AM EST [facility] MCV 105(H) 79 - 98 fL LAB HEMATOLOGY METHOD 01/03/2025 8:20 AM EST [facility] MCH 31.8 26.0 - 32.0 pg LAB HEMATOLOGY METHOD 01/03/2025 8:20 AM EST [facility] MCHC 30.4(L) 30.7 - 35.5 g/dL LAB HEMATOLOGY METHOD 01/03/2025 8:20 AM EST [facility] RDW 20.3(H) 11.5 - 14.5 % LAB HEMATOLOGY METHOD 01/03/2025 8:20 AM EST [facility] MPV 10.3 8.8 - 12.5 fL LAB HEMATOLOGY METHOD 01/03/2025 8:20 AM EST [facility] nRBC 0.0 <=0.0 per 100 WBCs LAB HEMATOLOGY METHOD 01/03/2025 8:20 AM EST [facility] Blood Arterial blood specimen / Unknown 01/03/2025 7:53 AM EST 01/03/2025 8:03 AM EST Comment:Pre-op diagnosis: Decompensation of cirrhosis of liver (CMS/HCC) [K72.90, K74.60] us Josafat Rivera MD LAB BLOOD ORDERABLES Final Res ult [facility] [address] [place] [address] * (ABNORMAL) Comprehensive Metabolic Panel, Plasma (01/03/2025 7:53 AM EST) Glucose, Plasma 111(H) 74 - 99 mg/dL 01/03/2025 8:41 AM EST [facility] BUN, Plasma 14 7 - 21 mg/dL 01/03/2025 8:41 AM EST [facility] Creatinine, Plasma 0.73 0.70 - 1.20 mg/dL 01/03/2025 8:41 AM EST [facility] BUN/Creatinine Ratio 19 01/03/2025 8:41 AM EST [facility] Sodium, Plasma 137 136 - 145 mmol/L 01/03/2025 8:41 AM EST [facility] Potassium, Plasma 3.8 3.6 - 4.9 mmol/L 01/03/2025 8:41 AM EST [facility] Chloride, Plasma 109(H) 97 - 107 mmol/L 01/03/2025 8:41 AM EST [facility] CO2, Plasma 21(L) 22 - 29 mmol/L 01/03/2025 8:41 AM EST [facility] Anion Gap 7 6 - 16 mmol/L 01/03/2025 8:41 AM EST [facility] Total Calcium, Plasma 7.6(L) 8.9 - 10.2 mg/dL 01/03/2025 8:41 AM EST [facility] Total Protein 5.0(L) 6.3 - 7.9 g/dL 01/03/2025 8:41 AM EST [facility] Albumin, Plasma 2.5(L) 3.5 - 5.2 g/dL 01/03/2025 8:41 AM EST [facility] AST, Plasma 50 10 - 50 U/L 01/03/2025 8:41 AM EST [facility] ALT, Plasma 26 10 - 50 U/L 01/03/2025 8:41 AM EST [facility] Alkaline Phosphatase, Plasma 93 40 - 115 U/L 01/03/2025 8:41 AM EST [facility] Total Bilirubin, Plasma 11.7(H) 0.2 - 1.1 mg/dL 01/03/2025 8:41 AM EST [facility] eGFRcr 114.3 mL/min/1.7 3m*2 01/03/2025 8:41 AM EST [facility] Comment:Reported eGFRcr in m L/min/1.73m2 is based the CKD-EPI 2020 equation that does not use a race coefficient. Blood Arterial blood specimen / Unknown 01/03/2025 7:53 AM EST 01/03/2025 8:02 AM EST Comment:Pre-op diagnosis: Decompensation of cirrhosis of liver (CMS/HCC) [K72.90, K74.60] us Josafat Rivera MD LAB BLOOD ORDERABLES Final Res ult [facility] [address] [place] [address] * Prepare Fresh Frozen Plasma: 5 Units (01/03/2025 6:43 AM EST) Product Code [id number] [facility] Dispense Status Transfused BLOOD BANK Blood Expiration Date [id number] BLOOD BANK Unit Number [id number] B LOOD BANK Product Blood Type 6200 CH BLOOD BANK Blood Type A+ CH BLOOD BANK Product Code [id number] [facility] BLOO D BANK Dispense Status Transfused CH BLOOD BANK Blood Expiration Date BLOOD BANK Unit Number [id number] CH B LOOD BANK Product Blood Type 6200 CH BLOOD BANK Blood Type A+ CH BLOOD BANK Product Code [id number] [facility] BLOO D BANK Dispense Status Transfused CH BLOOD BANK Blood Expiration Date [id number] CH BLOOD BANK Unit Number [id number] CH B LOOD BANK Product Blood Type 6200 CH BLOOD BANK Blood Type A+ CH BLOOD BANK Product Code [id number] [facility] BLOO D BANK Dispense Status Transfused CH BLOOD BANK Blood Expiration Date CH BLOOD BANK Unit Number [id number] CH B LOOD BANK Product Blood Type 0600 CH BLOOD BANK Blood Type A- CH BLOOD BANK Product Code [id number] [facility] BLOO D BANK Dispense Status Transfused CH BLOOD BANK Blood Expiration Date [id number] BLOOD BANK Unit Number [id number] CH B LOOD BANK Product Blood Type 6200 BLOOD BANK Blood Type A+ CH BLOOD BANK Blood Venous blood specimen / Unknown Ronnie Jackson MD BLOOD BANK PRODUCT ORDERAB LES Final Result [facility] BANK [address] * POCT glucose meter (01/03/2025 3:34 AM EST) [facility] POCT Glucose 90 74 - 99 mg/dL 01/03/2025 3:35 AM EST [facility] Comment:Accuracy of a glucos e result [...] 01/03/2025 3:35 AM EST [facility] Marketing Business Analyst ID Allison Rosenbaum 01/04/20 3:35 AM EST [facility] Device ID [id number] 01/03/2025 3:35 AM EST [facility] Specimen Type POC Capillary 01/03/2025 3:35 AM EST [facility] Blood Capillary blood specimen / Unknown 01/03/2025 3:34 AM EST 01/03/2025 3:35 AM EST Satnam Beckford MD LAB POINT OF CARE T EST DOCKED DEVICE UNSOLICITED RESULTS Final Result [facility] [address] [place] [address] * (ABNORMAL) Protime-INR (01/03/2025 3:34 AM EST) Prothrombin Time 27.8(H) 12.0 - 14.3 sec LAB COAGULATION METHOD 01/03/2025 4:13 AM EST [facility] INR 2.6(H) 0.9 - 1.1 LAB COAGULATION METHOD 01/03/2025 4:13 AM EST [facility] Blood Venous blood specimen / Unknown Venipuncture / Unknown 01/03/2025 3:34 AM EST 01/03/2025 3:41 AM EST Narrative [facility] - 01/03/2025 4:13 AM EST OPTIMAL INR RANGES FOR PATIENT ON ORAL ANTICOAGULANT THERAPY Prevention of venous thromboembolism INR 2.0 to 3.0 In patients with heart disease: Atrial fibrillation INR 2.0 to 3.0 Valvular heart disease INR 2.0 to 3.0 Tissue heart valves INR 2.0 to 3.0 Mechanical prosthetic valves INR 2.5 to 3.5 Prevention of recurrent VT INR 2.5 to 3.5 Satnam Beckford MD LAB BLOOD ORDERABLES Final Result [facility] [address] [place] [address] * SARS CoV-2/COVID-19 by PCR - Rapid (01/02/2025 9:46 AM EST) SARS CoV-2/COVID-1 9 RNA PCR Result Not Detected Not Detected 01/02/2025 11:10 AM EST [facility] Swab Nasopharyngeal structure / Unknown Non-blood Collection / Unknown 01/02/2025 9:46 AM EST 01/02/2025 10:06 AM EST Narrative [facility] - 01/02/2025 11:10 AM EST This [...] GENERAL ORDERABLES Final Result Performing Organization Address City/[facility]/ZIP Co de Phone Number [facility] [address] [place] [address] * HIV 1 & 2 Antibody/Antigen Screen (01/02/2025 9:40 AM EST) Pathologist [facility] HIV 1 & 2 Antibody/Antigen Screen Non Reactive Non Reactive 01/02/2025 10:[address] [facility] Comment:Screening for HIV 1 & 2 antibodies, and P24 antigen is NONREACTIVE. No confirmatory testing is required. Blood Venous blood specimen / Unknown Venipuncture / Unknown 01/02/2025 9:40 AM EST 01/02/2025 10:01 AM EST Satnam Beckford MD LAB BLOOD ORDERABLES Final Result Performing Organization Address City/[facility]/ZIP Co de Phone Number [facility] [address] [place] [address] * Type and screen (01/02/2025 9:40 AM [...] ORDERAB LES Final Result Performing Organization Address [facility] Co de Phone Number BLOOD BANK [address] * Hepatitis C Virus (HCV) Quantitative PCR (01/02/2025 9:40 AM EST) Pathologist [facility] Hepatitis C Virus (HCV) Quantitative Interpretation Not Detected Not Detected. 01/05/2025 4:19 PM EST [facility] Blood Venous blood specimen / Unknown Venipuncture / Unknown 01/02/2025 9:40 AM EST 01/02/2025 10:01 AM EST Narrative [facility] - 01/05/2025 4:19 PM EST The [employer] M2000 HCV test is a Real Time [...] BLOOD ORDERABLES Final Result Performing Organization Address City/[facility]/ZIP Co de Phone Number [facility] [address] [place] [address] * Hepatitis C Antibody (01/02/2025 9:40 AM EST) Pathologist [facility] Hepatitis C Antibody Negative Negative 01/02/2025 10:[address] [facility] Blood Venous blood specimen / Unknown Venipuncture / Unknown 01/02/2025 9:40 AM EST 01/02/2025 10:01 AM EST Satnam Beckford MD LAB BLOOD ORDERABLES Final Result [facility] [address] [place] [address] * Hepatitis B Surface Antigen (01/02/2025 9:40 AM EST) Hepatitis B Surf Antigen Negative Negative 01/02/2025 5:37 PM EST [facility] Blood Venous blood specimen / Unknown Venipuncture / Unknown 01/02/2025 9:40 AM EST 01/02/2025 10:02 AM EST Satnam Beckford MD LAB BLOOD ORDERABLES Final Result Performing Organization Address [facility] Co de Phone Number [facility] [address] [place] [address] * Hepatitis B Surface Antibody, Quantitative (01/02/2025 9:40 AM EST) Hepatitis B Surface Antibody, Quantitative <8.00 NonReactiv e: <8, Grayzone: 8 - <12, Reactive: >= 12 mIU/mL 01/02/2025 11:14 AM EST [facility] Comment: Nonreactive. Individual is considered not immune to HBV infection. Blood Venous blood specimen / Unknown Venipuncture / Unknown 01/02/2025 9:40 AM EST 01/02/2025 10:02 AM EST Satnam Beckford MD LAB BLOOD ORDERABLES Final Result Performing Organization Address City/[facility]/ZIP Co de Phone Number [facility] [address] [place] [address] * Hepatitis B Core Total Antibody IgG,IgM (01/02/2025 9:40 AM EST) Hepatitis B Core Total Antibody IgG,IgM Negative Negative 01/02/2025 11:14 AM EST [facility] Blood Venous blood specimen / Unknown Venipuncture / Unknown 01/02/2025 9:40 AM EST 01/02/2025 10:02 AM EST Satnam Beckford MD LAB BLOOD ORDERABLES Final Result Performing Organization Address City/[facility]/ZIP Co de Phone Number [facility] [address] [place] [address] * (ABNORMAL) Vitamin D 25 Hydroxy (01/02/2025 9:40 AM EST) Vitamin D 25 Hydroxy 16.2(L) 20.0 - 80.0 ng/mL 01/02/2025 11:15 AM EST [facility] Blood Venous blood specimen / Unknown Venipuncture / Unknown 01/02/2025 9:40 AM EST 01/02/2025 10:02 AM EST Narrative [facility] - 01/02/2025 11:15 AM EST Testing performed on [employer], standardized against NIST SRM [id number]. When testing [...] to 80 ng/mL Possible toxicity: >100 ng/mL Result [facility] Satnam Beckford MD LAB BLOOD ORDERABLES Final Result [facility] [address] [place] [address] * (ABNORMAL) APTT (01/02/2025 9:40 AM EST) aPTT 53(H) 25 - 35 sec LAB COAGULATION METHOD 01/02/2025 10:20 AM EST [facility] Blood Venous blood specimen / Unknown Venipuncture / Unknown 01/02/2025 9:40 AM EST 01/02/2025 10:01 AM EST Result [facility] Satnam Beckford MD LAB BLOOD ORDERABLES Final Result Performing Organization Address City/[facility]/ZIP Co de Phone Number [facility] [address] [place] [address] * (ABNORMAL) Protime-INR (01/02/2025 9:40 AM EST) Prothrombin Time 26.5(H) 12.0 - 14.3 sec LAB COAGULATION METHOD 01/02/2025 10:20 AM EST [facility] INR 2.4(H) 0.9 - 1.1 LAB COAGULATION METHOD 01/02/2025 10:20 AM EST [facility] Blood Venous blood specimen / Unknown Venipuncture / Unknown 01/02/2025 9:40 AM EST 01/02/2025 10:01 AM EST Narrative [facility] - 01/02/2025 10:20 AM EST OPTIMAL INR RANGES FOR PATIENT ON ORAL ANTICOAGULANT THERAPY Prevention of venous thromboembolism INR 2.0 to 3.0 In patients with heart disease: Atrial fibrillation INR 2.0 to 3.0 Valvular heart disease INR 2.0 to 3.0 Tissue heart valves INR 2.0 to 3.0 Mechanical prosthetic valves INR 2.5 to 3.5 Prevention of recurrent VT INR 2.5 to 3.5 Satnam Beckford MD LAB BLOOD ORDERABLES Final Result Performing Organization Address City/[facility]/ZIP Co de Phone Number [facility] [address] [place] [address] * (ABNORMAL) Comprehensive metabolic panel (01/02/2025 9:40 AM EST) Glucose, Plasma 83 74 - 99 mg/dL 01/02/2025 10:32 AM EST [facility] BUN, Plasma 14 7 - 21 mg/dL 01/02/2025 10:32 AM EST [facility] Creatinine, Plasma 0.85 0.70 - 1.20 mg/dL 01/02/2025 10:32 AM EST [facility] BUN/Creatinine Ratio 16 01/02/2025 10:32 AM EST [facility] Sodium, Plasma 139 136 - 145 mmol/L 01/02/2025 10:32 AM EST [facility] Potassium, Plasma 4.2 3.6 - 4.9 mmol/L 01/02/2025 10:32 AM EST [facility] Chloride, Plasma 107 97 - 107 mmol/L 01/02/2025 10:32 AM EST [facility] CO2, Plasma 22 22 - 29 mmol/L 01/02/2025 10:32 AM EST [facility] Anion Gap 10 6 - 16 mmol/L 01/02/2025 10:32 AM EST [facility] Total Calcium, Plasma 8.6(L) 8.9 - 10.2 mg/dL 01/02/2025 10:32 AM EST [facility] Total Protein 6.1(L) 6.3 - 7.9 g/dL 01/02/2025 10:32 AM EST [facility] Albumin, Plasma 2.9(L) 3.5 - 5.2 g/dL 01/02/2025 10:32 AM EST [facility] AST, Plasma 58(H) 10 - 50 U/L 01/02/2025 10:32 AM EST [facility] ALT, Plasma 28 10 - 50 U/L 01/02/2025 10:32 AM EST [facility] Alkaline Phosphatase, Plasma 134(H) 40 - 115 U/L 01/02/2025 10:32 AM EST [facility] Total Bilirubin, Plasma 13.2(H) 0.2 - 1.1 mg/dL 01/02/2025 10:32 AM EST [facility] eGFRcr 109.2 mL/min/1.7 3m*2 01/02/2025 10:32 AM EST [facility] Comment:Reported eGFRcr in m L/min/1.73m2 is based the CKD-EPI 2020 equation that does not use a race coefficient. Blood Venous blood specimen / Unknown Venipuncture / Unknown 01/02/2025 9:40 AM EST 01/02/2025 10:02 AM EST us Satnam Beckford MD LAB BLOOD ORDERABLES Final Result [facility] [address] [place] [address] * (ABNORMAL) CBC and Differential (01/02/2025 9:40 AM EST) WBC Count 2.84(L) 3.70 - 10.30 10*3/uL LAB HEMATOLOGY METHOD 01/02/2025 10:10 AM EST [facility] RBC Count 2.76(L) 4.60 - 6.10 10*6/uL LAB HEMATOLOGY METHOD 01/02/2025 10:10 AM EST [facility] HGB 8.7(L) 13.7 - 17.5 g/dL LAB HEMATOLOGY METHOD 01/02/2025 10:10 AM EST [facility] HCT 28.6(L) 40.0 - 51.0 % LAB HEMATOLOGY METHOD 01/02/2025 10:10 AM EST [facility] Platelet Count 72(L) 155 - 369 10*3/uL LAB HEMATOLOGY METHOD 01/02/2025 10:10 AM EST [facility] MCV 104(H) 79 - 98 fL LAB HEMATOLOGY METHOD 01/02/2025 10:10 AM EST [facility] MCH 31.5 26.0 - 32.0 pg LAB HEMATOLOGY METHOD 01/02/2025 10:10 AM EST [facility] MCHC 30.4(L) 30.7 - 35.5 g/dL LAB HEMATOLOGY METHOD 01/02/2025 10:10 AM EST [facility] RDW 20.5(H) 11.5 - 14.5 % LAB HEMATOLOGY METHOD 01/02/2025 10:10 AM EST [facility] MPV 10.6 8.8 - 12.5 fL LAB HEMATOLOGY METHOD 01/02/2025 10:10 AM EST [facility] nRBC 0.0 <=0.0 per 100 WBCs LAB HEMATOLOGY METHOD 01/02/2025 10:10 AM EST [facility] Differential Type Automated LAB HEMATOLOGY METHOD 01/02/2025 10:10 AM EST [facility] Neutrophils % 49 % LAB HEMATOLOGY METHOD 01/02/2025 10:10 AM [facility] Lymphocytes % 30 % LAB HEMATOLOGY METHOD 01/02/2025 10:10 AM EST [facility] Monocytes % 16 % LAB HEMATOLOGY METHOD 01/02/2025 10:10 AM EST [facility] Eosinophils % 4 % LAB HEMATOLOGY METHOD 01/02/2025 10:10 AM EST [facility] Basophils % 1 % LAB HEMATOLOGY METHOD 01/02/2025 10:10 AM EST [facility] Immature Granulocytes % 0 % LAB HEMATOLOGY METHOD 01/02/2025 10:10 AM EST [facility] Neutrophils Absolute 1.39(L) 1.60 - 6.10 10*3/uL LAB HEMATOLOGY METHOD 01/02/2025 10:10 AM EST [facility] Lymphocytes Absolute 0.85(L) 1.20 - 3.90 10*3/uL LAB HEMATOLOGY METHOD 01/02/2025 10:10 AM EST [facility] Monocytes Absolute 0.45 0.30 - 0.90 10*3/uL LAB HEMATOLOGY METHOD 01/02/2025 10:10 AM EST [facility] Eosinophils Absolute 0.11 0.00 - 0.50 10*3/uL LAB HEMATOLOGY METHOD 01/02/2025 10:10 AM EST [facility] Basophils Absolute 0.03 0.00 - 0.10 10*3/uL LAB HEMATOLOGY METHOD 01/02/2025 10:10 AM EST [facility] Immature Granulocytes Absolute 0.01 0.00 - 0.06 10*3/uL LAB HEMATOLOGY METHOD 01/02/2025 10:10 AM EST [facility] Blood Venous blood specimen / Unknown Venipuncture / Unknown 01/02/2025 9:40 AM EST 01/02/2025 10:02 AM EST Narrative [facility] - 01/02/2025 10:10 AM EST Therapeutic decision making should be based on absolute values, rather than percentages. us Satnam Beckford MD LAB BLOOD ORDERABLES Final Result [facility] [address] [place] [address] documented in this encounter Visit Diagnoses Diagnosis [...] Unspecified hypotension Elevated INR Abnormal coagulation profile Decompensation of cirrhosis of liver (CMS/HCC) documented in this encounter Admitting Diagnoses Diagnosis Decompensation of cirrhosis of liver (CMS/HCC) documented in this encounter Administered Medications Inactive Administered Medications - up to 3 most recent administrations Medication Order MAR Action Action Date Dose Rate Site amLODIPine (Norvasc) tablet 10 mg 10 mg, Oral, Daily, First dose (after last modification) on Sun01/14/25 at 0900, Until Discontinued, Routine Given 01/16/2025 8:32 AM EST 10 mg Given 01/15/2025 8:40 AM EST 10 mg Given 01/14/2025 9:15 AM EST 10 mg aspirin chewable tablet 81 mg 81 [...] AM EST 150 mg carvedilol (Coreg) tablet 25 mg 25 mg, Oral, 2 times daily, First dose (after last modification) on Sun01/05/25 at 0900, Until Discontinued, Routine Given 01/16/2025 8:32 AM EST 25 mg Given 01/15/2025 8:58 PM EST 25 mg Given 01/15/2025 8:41 AM EST 25 mg dextrose 10 % (D10W) bolus 125 [...] PRN low blood sugar BG =/<50 mg/dL ergocalciferol (Vitamin D-2) capsule 50,000 Units 50,000 [...] Given 01/14/2025 9:16 AM EST 10 mg ferrous sulfate EC tablet 324 mg [...] Given 01/14/2025 9:16 AM EST 200 mg glucagon (human recombinant) injection 1 mg 1 [...] Hypoglycemia Prevention and Treatment protocol heparin (porcine) 10,000 Units in sodium chloride 0.9 % 1,010 mL OR irrigation Continuous PRN, Starting on 01/03/25 at 0834, Until 01/03/25 at 1436, Routine New Bag 01/03/2025 8:34 AM EST heparin (porcine) 40,000 Units in sodium chloride 0.9 % 1,040 mL OR irrigation Continuous PRN, Starting on 01/03/25 at 0834, Until 01/03/25 at 1436, Routine New Bag 01/03/2025 8:34 AM EST heparin (porcine) injection 5,000 Units 5,000 Units, [...] Given 01/11/2025 12:40 PM EST 10 mg insulin lispro (Admelog) 100 units/mL injection - Correction - Standard Dose 0-5 Units, Subcutaneous, 3 times daily with meals, First dose on 01/11/25 at 1915, Until Discontinued, Routine, Recovery(Phase II-Outpatient)/On Unit(Inpatient) Given 01/16/2025 12:06 PM EST 1 Units Left Upper Arm (Back ) Given 01/15/2025 8:43 AM EST 1 Units Le ft Upper Arm (Back) Given 01/14/2025 5:40 PM EST 1 Units Ri ght Upper Arm (Back) insulin lispro (Admelog) injection - Correction - Nighttime Dose 0-3 Units, Subcutaneous, 2 times nightly (2100 & 0300), First dose on 01/11/25 at 2100, Until Discontinued, Routine, Recovery(Phase II-Outpatient)/On Unit(Inpatient) labetalol (Normodyne,Trandate) injection 10 mg 10 mg, [...] Given 01/05/2025 7:26 AM EST 20 mg levoFLOXacin (Levaquin) tablet 750 mg 750 mg, Oral, Daily, 7 doses, First dose on Cassia 01/15/25 at 1130, Last dose on Sun01/21/25 at 0900, Routine Given 01/16/2025 8:31 AM EST 750 mg Given 01/15/2025 10:51 AM EST 750 mg methocarbamol (Robaxin) tablet 500 mg 500 mg, Oral, 4 times daily, First dose (after last modification) on Sun01/04/25 at 1400, Until Discontinued, Routine Given 01/16/2025 1:20 PM EST 500 mg Given 01/16/2025 8:31 AM EST 500 mg Given 01/15/2025 9:00 PM EST 500 mg mycophenolate (Cellcept) capsule 750 [...] Given 01/14/2025 9:15 AM EST 40 mg polyethylene glycol (Miralax) packet 17 g 17 g, Oral, Daily, First dose on Sun01/06/25 at 1115, Until Discontinued, Routine Given 01/15/2025 8:40 AM EST 17 g Given 01/10/2025 9:27 AM EST 17 g Given 01/09/2025 8:44 AM EST 17 g predniSONE (Deltasone) tablet 10 mg 10 mg, [...] Sun01/30/25 at 0900, Routine predniSONE (Deltasone) tablet 50 mg 50 mg, Oral, Daily, 5 doses, First dose on Sun01/21/25 at 0900, Last dose on Sun01/25/25 at 0900, Routine predniSONE (Deltasone) tablet 60 mg 60 mg, Oral, Daily, 5 doses, First dose on Sun01/16/25 at 0900, Last dose on Sun01/20/25 at 0900, Routine Given 01/16/2025 8:31 AM EST 60 mg senna-docusate (Lauren-Colace) 8.6-50 MG per tablet 2 [...] 10 mL, Intravenous, As needed, Starting on 01/12/25 at 1020, Until Sun01/16/25 at 1932, Routine, [...] Given 01/15/2025 6:33 AM EST 1 mg traZODone (Desyrel) tablet 50 mg 50 mg, Oral, Nightly, First dose on Cassia 01/08/25 at 2100, Until Discontinued, Routine Given 01/15/2025 8:5 8 PM EST 50 mg Given 01/14/2025 9:10 PM EST 50 mg Given 01/13/2025 8:02 PM EST 50 mg ursodiol (Actigall) capsule 600 mg 600 [...] Richmond RN) 0831 (Given - Provider: Armida Oscar, DEMETRIA) bisacodyl (Dulcolax) suppository 10 mg 10 mg, Rectal, Daily, First dose on Tu01/06/25 at 1115, Until Discontinued, Routine 0920 (Not [...] Bree Mcfarland RN)2116 (Given - Provider: Mirtha Miranda, RN) 841 (Given - Provider: Abigail Richmond, DEEMTRIA)2056 (Given - Provider: Allison Rosenbaum RN) 0832 (Given - Provider: Armida Oscar RN) carvedilol (Coreg) tablet 25 mg 25 mg, Oral, 2 times daily, First dose (after last modification) on Sun01/05/25 at 0900, Until Discontinued, Routine 09 (Given - Provider: Bree Mcfarland RN)2109 (Given - Provider: Mirtha Miranda, RN) 840 (Given - Provider: Abigail Richmond RN)2057 (Given - Provider: Allison Rosenbaum, DEMETRIA) 0832 (Given - Provider: Armida Oscar RN) ergocalciferol (Vitamin D-2) capsule 50,000 Units 50,000 Units, Oral, Weekly, First dose on Sun01/09/25 at 0900, Until Discontinued, Routine 0831 (Given - Provid er: Armida Oscar RN) escitalopram (Lexapro) tablet 10 mg 10 mg, Oral, Daily, First dose on 01/03/25 at 0900, Until Discontinued, Routine 0916 (Given - Provider: Bree Mcfarland RN) 08 (Given - Provider: Abigail Richmond RN) 0831 (Given - Provider: Armida Oscar RN) ferrous sulfate EC tablet 324 mg 324 mg, Oral, Daily with breakfast, First dose on 01/03/25 at 0800, Until Discontinued 0916 (Given - Provider: Bree Mcfarland RN) 08 (Given - Provider: Abgiail Richmond RN) 0832 (Given - Provider: Armida [...] Provider: Allison Rosenbaum RN)1320 (Given - Provider: Armiad Oscar RN) insulin lispro (Admelog) 100 units/mL [...] Units, Subcutaneous, 2 times nightly (2099 & 299), First dose on 01/11/25 at 2100, Until [...] Abigail Richmond RN)1350 (Given - Provider: Abigail Richmond, DEMETRIA)1734 (Given - Provider: Abigail Richmond RN)2100 (Given [...] RN) 1021 (New Bag - Provider: Abigail Richmond, DEMETRIA) mycophenolate (Cellcept) capsule 500 mg (CANCELED) 500 mg, Oral, 2 times daily, First dose (after last modification) on 01/11/25 at 2100, Until Discontinued, Routine 0915 (Given - Provider: Bree Mcfarland RN)2109 (Given - Provider: Mirtha iMranda RN) 0841 (Given - Provider: Abigail Richmond, DEMETRIA) mycophenolate (Cellcept) capsule 750 mg 750 mg, Oral, 2 times daily, First dose (after last modification) on Cassia 01/15/25 at 2100, Until Discontinued, Routine 2057 (Given - Provider: Allison Rosenbaum RN) 0832 (Given - Provider: Armida Oscar RN) pantoprazole (Protonix) EC tablet 40 mg 40 [...] 6 hours, 27 doses, First dose on 01/11/25 at 0730, Last dose on Sun01/17/25 at [...] Mirtha Miranda RN)1734 (Given - Provider: Abigail Richmond RN) 0448 (Given - Provider: Allison Rosenbaum RN)1700 [...] Provider: Bree Mcfarland RN)2200 (Given - Provider: Mritha Miranda RN) 0844 (Given - Provider: Abigail Richmond, DEMETRIA)2100 (Given - Provider: Allison Rosenbaum RN) 1000 (Canceled Entry - Provider: Armida Oscar RN) sodium chloride 0.9 % flush 10 mL(Linked Group 5) 10 mL, Intravenous, Every 12 hours, First dose on Sun01/13/25 at 1615, Until Discontinued, Routine, Holding - Preprocedure 0354 (Given - Provider: Mirtha Miranda RN)1600 (Given - Provider: Bree Mcfarland RN) 0323 (Given - Provider: Mirtha Miranda, DEMETRIA)0843 (Given - Provider: Abigail Richmond, DEMETRIA)1547 (Given [...] Richmond, DEMETRIA) 0831 (Given - Provider: Armida Oscra RN) tacrolimus (Prograf) capsule 1 mg 1 mg, Oral, 2 times daily (0600 & 1800), First dose (after last modification) on Sun01/13/25 at 1800, Until Discontinued, Routine 0627 (Given - Provider: Mirtha Miranda, DEMETRIA)1740 (Given - Provider: Bree Mcfarland RN) 0633 (Given - Provider: Mirtha M Ruben, RN)1734 (Given - Provider: Abigail Richmond, DEMETRIA) 0606 (Given - Provider: Allison Rosenbaum, DEMETRIA)1800 (Canceled Entry - Provider: Automatic Discharge Provider - Comment: Automatically canceled at discontinue of medication order) traZODone (Desyrel) tablet 50 mg 50 mg, Oral, Nightly, First dose on Cassia 01/08/25 at 2100, Until Discontinued, Routine 2109 (Given - Provider: Mirtha Miranda RN) 2057 (Given - Provider: Allison Rosenbaum RN) ursodiol (Actigall) capsule 300 mg (CANCELED) 300 mg, Oral, 2 times daily, First dose on 01/10/25 at 1200, Until Discontinued, Routine 0915 (Given - Provider: Bree Mcfarland RN)2109 (Given - Provider: Mirtha Miranda RN) 0844 (Given - Provider: Abigail Richmond, DEMETRIA)2058 (Given - Provider: Allison Rosenbaum RN) 0831 [...] 0832 (Given - Provider: Armida Oscar, DEMETRIA) PRN Medication Order 01/14/2025 01/15/2025 01/16/2025 dextrose [...] at 0926, Until Sun01/16/25 at 193, Routine, Moderate/Severe Pain > or =3: CPOT; > or =4: FLACC, PAINAD, NPASS, NRS, White-Frances Faces; > or =5: DVPRS, NIPS 0627 (Given - Provider: Mirtha Miranda RN) 0633 (Given - Provider: Mirtha Miranda RN) sodium chloride 0.9 % flush 10 mL 10 mL, Intravenous, Every 1 hour PRN, Starting on 01/03/25 at 1608, Until Sun01/16/25 at 1932, Routine, Flush Before and After EVERY dose of medication. sodium chloride 0.9 % flush 10 mL(Linked Group 2) 10 mL, Intravenous, As needed, Starting on 01/12/25 at 1020, Until Sun01/16/25 at 193, Routine, Holding - Preprocedure, line care sodium chloride 0.9 % flush 10 mL(Linked Group 3) 10 mL, Intravenous, As needed, Starting on 01/12/25 at 1020, Until Sun01/16/25 at 1932, Routine, [...] at 1608, Until Sun01/16/25 at 193, Routine, After blood draws and if any [...] on Sun01/13/25 at 1515, Until Sun01/16/25 at 193, Routine, Holding - Preprocedure, line care Group [...] PRN, Starting on Sun01/09/25 at 0926, Until 01/16/25 at 1932, Routine, Moderate/Severe Pain > or [...] documented as of this encounter 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
--- OUTSIDE RECORDS SUMMARY | 2025-01-03 07:01 | XMS_ITS | Encounter Summary ---
Author Organization Healthcare Address [address] 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 Role Phone Param Eng DO Primary Care Provider [phone] Reason for Visit * Auth/Cert (Routine) Specialty Diagnoses / Procedures Referred By Contac t Referred To Contact Diagnoses Decompensation of cirrhosis of liver (CMS/HCC) Satnam Beckford MD [address] [facility] [address] [place] [address] Phone: tel: fax: [facility] Inpatient [address] [place] [address] Phone: tel: Referral ID Status Reason Start Date Expiration Date Visits Re quested Visits Authorized [id number] 1 1 Encounter Details Date Type Department Care Team (Late st Contact Info) Description 01/03/2025 7:01 AM EST Anesthesia Event [facility] OPERATING ROOM [address] [place] [address] Josafat Rivera MD [address] [place] [address] Aravind Benton DO [address] [place] [address] Anesthesia Record Procedure Summary Procedure Name Responsible Anesthesiologist Anesthesia Start Time Anesthesia Stop Time TRANSPLANT, LIVER NicoleJosafat MD 01/03/25 0701 1449 Events Date Time Event Comment 01/03/2025 0700 In Room 0701 An Start The patient was reevaluated immediately before sedation and remains eligible for anesthesia plan. 0701 An Start Data 0705 An Induction The patient was reevaluated immediately before moderate or deep sedation use and before anesthesia induction. 0708 An Intubation 0734 Anesthesia Ready 0814 Proc Start 0853 Alveolar Recruitment Maneuve r Alveolar recruitment maneuver performed with 40 cm H2O 20 seconds Performed Once 1004 William Test clamp 1007 William Test clamp off 1021 William Cava Clamp 1023 Hepatectomy 1424 Proc Fin 1434 an stop data 1436 Out of Room 1439 William Propofol gtt le ft w/ ICU team 1440 Handoff to Receiving I compl eted my handoff to the receiving clinician during which we: 1. Identified the patient 2. Identified the responsible provider 3. Reviewed the pertinent medical history 4. Discussed the surgical course 5. Reviewed intra-op anesthesia management and issues during anesthesia 6. Set expectations for post-procedure period 7. Allowed opportunity for questions and acknowledgement of understanding. 1449 An Stop Meds Name Total fentaNYL (Sublimaze) injection 50 mcg/mL 150 mcg LORazepam 2 MG/ML 2 mg propofol (Diprivan) injection 10 mg/mL 1 50 mg Lidocaine HCl 100 MG/5ML 100 mg piperacillin-tazobactam 4.5 (4-0.5) g 18 g rocuronium (ZeMuron) injection 10 mg/mL 300 mg methylPREDNISolone sodium succinate (PF) 500 MG 500 mg ketamine 10 MG/ML 50 mg fluconazole in NS (Diflucan) IVPB 400 mg 400 mg sufentanil (Sufenta) 50 mcg in sodium ch loride 0.9 % 10 mL infusion 50.11 mcg furosemide (Lasix) injection 10 mg/mL 60 mg albumin human 5% 500 mL vasopressin (Vasostrict) injection 20 Un its/mL 2 Units calcium chloride injection 10% 2 g norepinephrine in 0.9% NaCl infusion 32 mcg/mL 0.41 mg insulin regular (HumuLIN R,NovoLIN R) in jection 100unit/mL 12 Units aminocaproic acid (Amicar) injection 250 mg/mL 5 g propofol (Diprivan) infusion 10 mg/mL 16 2.47 mg lactated Ringer's infusion 1,000 mL sodium chloride 0.9 % infusion 4,000 mL dextrose 50 % infusion 40 mL * Agents Name O2 N2O Air Sevoflurane Isoflurane Desflurane Inspired Desflurane Inspired Isoflurane Inspired Sevoflurane N2O Inspired N2O * Blood Name Total FFP 2,400 mL PRBC 2,800 mL PLATELETS 250 mL Lines, Drains, and Airways Type Details Placement Removal Wound 01/03/25; 08; N; Surgical; Closed Surgi; Abdomen; Upper 01/03/25 0828 by Ritu Buenrostro RN Peripheral IV Placement Date: 01/02/25; Placement Time: 1000; Catheter Size: 20 G; Orientation: Left, Posterior; Location: Wrist; Site Prep: Alcohol; Technique: Anatomical landmarks; Inserted by: Tania Florian RN; Insertion Attempts: 1; Patient Tolerance: Tolerated well; Removal Date: 01/16/25; Removal Time: 1545 01/02/25 1000 by Jolene Florian RN 01/16/25 1545 by Armida Oscar RN ETT Placement Date: 01/03/25; Placement Time: 0708 (created via procedure documentation); Mask Ventilation: 0; Technique: Direct laryngoscopy; Type: ETT - single; Single Lumen Tube Size: 8 mm; Cuffed: Yes; Laryngoscope: Yifan; Blade Size: 4; Location: Oral; Grade View: Grade IIb; Insertion Attempts: 1; Placement Verification: Auscultation, Capnometry; Airway Comments: Atraumatic. No change to dentition. RSI with cp; Placed by: Resident ; Removal Date: 01/03/25; Removal Time: 1720 01/03/25 0708 by Aravidn Benton DO 01/03/25 1720 by Linden Palmer Arterial Line Placement Date: 01/03/25; Placement Time: 0715 (created via procedure documentation); Size: 20 G; Orientation: Left; Location: Radial; Inserted by: Resident; Securement: Taped; Patient Tolerance: Tolerated well; Removal Date: 01/04/25; Removal Time: 0930 01/03/25 0715 by Aravind Benton DO 01/04/25 0930 by Tila Vazquez RN Urethral Catheter Placement Date: 01/03/25; Placement Time: 0720; Inserted by: Jaja Buenrostro RN; Type: Single lumen, Temperature probe; Size: 16 Fr.; Balloon Size: 10 mL; Urine Returned: Yes; Removal Date: 01/09/25; Removal Time: 0500; Removal Reason: Per order 01/03/25 0720 by Ritu Buenrostro RN 01/09/25 0500 by Daylin Mckeon RN CVC Triple Lumen Placement Date: 01/03/25; Placement Time: 0730 (created via procedure documentation); Hand Hygiene: Yes; Site Prep: Chlorhexidine ; Site Prep Agent Dried: Yes; Sterile Barrier Used: Yes; Size: (13 Fr); Line Length(cm): 15; Orientation: Right; Location: Internal jugular; Placement Verification: Blood return, Ultrasound (MAGDA); Removal Date: 01/06/25; Removal Time: 1200; Removal Reason: Per order 01/03/25 0730 by Aravind Benton, DO 01/06/25 1200 by Galileo Abdi RN CVC Double Lumen Placement Date: 01/03/25; Placement Time: 0730 (created via procedure documentation); Hand Hygiene: Yes; Site Prep: Chlorhexidine ; Site Prep Agent Dried: Yes; Sterile Barrier Used: Yes; Size: 9 Fr; Line Length(cm): 15; Orientation: Right; Location: Internal jugular; Placement Verification: Blood return, Ultrasound (MAGDA); Removal Date: 01/06/25; Removal Time: 1730; Removal Reason: Per order 01/03/25 0730 by Aravind Benton, DO 01/06/25 1730 by Galileo Abdi RN Introducer Placement Date: 01/03/25; Placement Time: 0730 (created via procedure documentation); Hand Hygiene: Yes; Location: Internal jugular; Orientation: Right; Placement Verified by: Pressure tracing changes, MAGDA; Removal Date: 01/04/25; Removal Time: 0900 01/03/25 0730 by Aravind Benton, DO 01/04/25 0900 by Tila Vazquez RN CVC Triple Lumen Placement Date: 01/03/25; Placement Time: 0730 (created via procedure documentation); Hand Hygiene: Yes; Site Prep: Chlorhexidine ; Site Prep Agent Dried: Yes; Sterile Barrier Used: Yes; Size: 7 Fr; Line Length(cm): 20; Orientation: Left; Location: Subclavian; Placement Verification: Blood return, Ultrasound; Removal Date: 01/12/25; Removal Time: 06; Removal Reason: Per order; Removal Cath Length: 20 cm 01/03/25 0730 by Aravind Benton, DO 01/12/25 0628 by Daylin Mckeon RN Peripheral IV Placement Date: 01/03/25; Placement Time: 07 (created via procedure documentation); Catheter Size: 18 G; Orientation: Right, Posterior; Location: Hand; Technique: Anatomical landmarks; Insertion Attempts: 1; Removal Date: 01/16/25; Removal Time: 15401/03/25 07 by Aravind Benton, DO 01/16/25 154 by Armida sOcar RN Arterial Line Placement Date: 01/03/25; Placement Time: 08 (created via procedure documentation); Size: 20 G; Orientation: Right; Location: Radial; Inserted by: Resident; Securement: Taped; Patient Tolerance: Tolerated well; Removal Date: 01/06/25; Removal Time: 1200; Removal Reason: Per order 01/03/25 0810 by Aravind Benton, DO 01/06/25 1200 by Galileo Abdi RN Closed/Suction Drain 01/03/25; 1317; No; 01/03/25; Other (Comment); Yes; 1; Right, Ventral; Abdomen; Bulb; 19 Fr.; 1; Other (Comment) (BY ) 01/03/25 1317 by Virginia Major RN 01/07/25 1400 by Fariha Hill RN Closed/Suction Drain 01/03/25; 1318; No; 01/03/25; Other (Comment); Yes; 2; Left, Ventral; Abdomen; Bulb; 19 Fr.; 1; Other (Comment) (Removed by provider) 01/03/25 1318 by Virginia Major RN 01/08/25 1756 by Cheryl Choi MD NG/OG Tube Placement Date: 01/03/25; Placement Time: 1400; Type: Orogastric; Location: Left mouth; Removal Date: 01/03/25; Removal Time: 1700; Removal Reason: Per order 01/03/25 1400 by Elyssa Augustin RN 01/03/25 1700 by Elyssa Augustin RN documented in this encounter Social History [...] or relatives? Twice a week 01/02/2025 Attends [employer] Not on file 01/02 Do you belong to any clubs o r organizations such as scientologist groups, unions, fraternal or athletic groups, or [...] housing, medical care, and heating? Hard 01/02/2025 [facility] - Occupational Stress Questionnaire Answer Date Recorded [...] were you homeless or living in a snf (including now)? No 01/02/2025 [facility] Utilities Answer Date Recorded In the past 12 months has th e [employer], gas, oil, or water company threatened to [...] drink first t edgardo in the morning ([employer]SUPER[employer]) to steady your nerves or to get [...] Date of Assessment Author Precautions Environmental surveillance 01/05/2025 12: 00 AM Shaka Gillespie RN * Calculated C-SSRS Risk Score (Lifetime/Recent) Answer Date of Assessment Author No Risk Indicated 01/04/2025 8:00 PM Shaka Arshad RN * Question Answer Date of Assessment Author 1. Wish to be (Past 1 Month) No 01/04/2025 8:00 PM Melvina Gillespie RN 2. Non-Specific Active Suicidal Thoughts (Past 1 Month) No 01/04/2025 8:00 PM Melvina Gillespie RN 6. Suicidal Behavior (Lifetime) No 01/04/2025 8:00 PM Melvina Gillespie RN documented as of this encounter Mental Status * Question Answer Entry Date Author Precautions Environmental surveillance 01/05/2025 12: 00 AM Shaka Gillespie RN * Question Answer Entry Date Author Backup Resp Rate (Set) 16 01/03/2025 3:01 PM Blaine Sinha documented in this encounter Miscellaneous Notes * Anesthesia Postprocedure Evaluation - Aravind Benton DO - 01/03/2025 3:02 PM EST Patient: Cesar Tay Anesthesia Type: general Vitals Value Taken Time BP 132/73 01/03/25 14:45 Temp See RN Flowsheet 01/03/25 15:02 Pulse 74 01/03/25 14:59 Resp 23 01/03/25 15:01 SpO2 95 % 01/03/25 15:00 Vitals shown include unfiled device data. Anesthesia Post Evaluation Patient location during evaluation: ICU Patient participation: complete - patient cannot participate Level of consciousness: sedated Pain management: adequate (pain score 0-3) Airway patency: endotracheal device Cardiovascular status: acceptable and hemodynamically stable Respiratory status: ETT, intubated and ventilator Hydration status: acceptable Comments: The patient was transported to the ICU on transport monitor, and remained HDS throughout.The patient was manually ventilated w/ ambu bag and supplemental O2 throughout transport, and remained stable from a respiratory standpoint. Upon arrival to the ICU the patient was transferred to mechanical ventilator. Handoff was given to the ICU team. Patient remained HDS prior to anesthesia teamdeparture from ICU. Propofol gtt left w/ ICU team for continued sedation. No notable events documented. Cosigned by Josafat Rivera MD at 01/03/2025 3:14 PM EST Associated attestation - Josafat Rivera MD - 01/03/2025 3:14 PM EST I agree with the findings and care plan documented in the postprocedure evaluation note. * Anesthesia Procedure Notes - Aravind Benton DO - 01/03/2025 8:12 AM EST Associated Order(s): Peripheral IV Peripheral IV Date/Time: 01/03/2025 7:30 AM Placement Needle size: 18 G Location: hand Site prep: alcohol Technique: anatomical landmarks Attempts: 1 Cosigned by Josafat Rivera MD at 01/03/2025 8:36 AM EST Associated attestation - Josafat Rivera MD - 01/03/2025 8:36 AM EST I was present during all critical and garcia portions of the procedure(s) and immediately available [facility] services the entire duration. See resident note for details. * Anesthesia Procedure Notes - Aravind Benton DO - 01/03/2025 8:11 AM EST Associated Order(s): Central Venous Line Central Venous Line: Date/Time: 01/03/2025 7:30 AM A central venous line was placed in the OR for the following indication(s): central venous access and CVP monitoring. Sterility preparation included the following: provider hand hygiene performed prior to central venous catheter insertion, all 5 sterile barriers used (gloves, gown, cap, mask, large sterile drape) during central venous catheter insertion, antiseptic used during central venous catheter insertion andskin prep agent completely dried prior to procedure. The patient was placed in Trendelenburg position. Left subclavian vein was prepped. The site was prepped with Chlorhexidine. A 7 Fr (size), 20 (length), introducer triple lumen was placed. During the procedure, the following specific steps were taken: target vein identified, needle advanced into vein and blood aspirated and guidewire advanced into vein. Seldinger technique used Procedure performed using ultrasound guidance Sterile gel and probe cover used in ultrasound-guided central venous catheter insertion. Intravenous verification was obtained by ultrasound, venous blood return and manometry. Post insertion care included: all ports aspirated, all ports flushed easily, guidewire removed intact, Biopatch applied, line sutured in place and dressing applied. During the procedure the patient experienced: patient tolerated procedure well with no complications. Staffing Performed: Resident Anesthesiologist: Josafat Rivera MD Resident: Aravind Benton DO Cosigned by Josafat Rivera MD at 01/03/2025 8:36 AM EST Associated attestation - Josafat Rivera MD - 01/03/2025 8:36 AM EST I was present during all critical and garcia portions of the procedure(s) and immediately available [facility] the entire duration. See resident note for details. * Anesthesia Procedure Notes - Aravind Benton DO - 01/03/2025 8:10 AM EST Associated Order(s): Central Venous Line Central Venous Line: Date/Time: 01/03/2025 7:30 AM A central venous line was placed in the OR for the following indication(s): CVP monitoring. Sterility preparation included the following: provider hand hygiene performed prior to central venous catheter insertion, all 5 sterile barriers used (gloves, gown, cap, mask, large sterile drape) during central venous catheter insertion, antiseptic used during central venous catheter insertion andskin prep agent completely dried prior to procedure. The patient was placed in Trendelenburg position. Right internal jugular vein was prepped. The site was prepped with Chlorhexidine. A 9 Fr (size), 15 (length), introducer double lumen was placed. This catheter was an oximetric catheter. During the procedure, the following specific steps were taken: target vein identified, needle advanced into vein and blood aspirated and guidewire advanced into vein. Seldinger technique used Procedure performed using ultrasound guidance Sterile gel and probe cover used in ultrasound-guided central venous catheter insertion. Intravenous verification was obtained by ultrasound, venous blood return, transducer, manometry andTEE. Post insertion care included: all ports aspirated, all ports flushed easily, guidewire removed intact, Biopatch applied, line sutured in place and dressing applied. During the procedure the patient experienced: patient tolerated procedure well with no complications. PA Catheter Placed A oximetric, 8 (size) Pulmonary Artery Catheter (PAC) was placed through the Introducer CVL in the right internal jugular vein. The PAC placement was confirmed by pressure tracing changes and MAGDA and secured at 48 cm (depth). The patient experienced the following events during the procedure: patient tolerated procedure wellwith no complications. Staffing Performed: Resident Anesthesiologist: Josafat Rivera MD Resident: Aravind Benton DO Cosigned by Josafat Rivera MD at 01/03/2025 8:36 AM EST Associated attestation - Josafat Rivera MD - 01/03/2025 8:36 AM EST I was present during all critical and garcia portions of the procedure(s) and [facility]. See resident note for details. * Anesthesia Procedure Notes - Aravind Benton DO - 01/03/2025 8:10 AM EST Associated Order(s): Central Venous Line Central Venous Line: Date/Time: 01/03/2025 7:30 AM A central venous line was placed in the OR for the following indication(s): central venous access and CVP monitoring. Sterility preparation included the following: provider hand hygiene performed prior to central venous catheter insertion, all 5 sterile barriers used (gloves, gown, cap, mask, large sterile drape) during central venous catheter insertion, antiseptic used during central venous catheter insertion andskin prep agent completely dried prior to procedure. The patient was placed in Trendelenburg position. Right internal jugular vein was prepped. The site was prepped with Chlorhexidine. Catheter size: 13 Fr. 15 (length), introducer triple lumen was placed. During the procedure, the following specific steps were taken: target vein identified, needle advanced into vein and blood aspirated and guidewire advanced into vein. Seldinger technique used Procedure performed using ultrasound guidance Sterile gel and probe cover used in ultrasound-guided central venous catheter insertion. Intravenous verification was obtained by ultrasound, venous blood return, transducer, manometry andTEE. Post insertion care included: all ports aspirated, all ports flushed easily, guidewire removed intact, Biopatch applied, line sutured in place and dressing applied. During the procedure the patient experienced: patient tolerated procedure well with no complications. Staffing Performed: Resident Anesthesiologist: Josafat Rivera MD Resident: Aravind Benton DO Cosigned by Josafat Rivera MD at 01/03/2025 8:36 AM EST Associated attestation - Josafat Rivera MD - 01/03/2025 8:36 AM EST I was present during all critical and garcia portions of the procedure(s) and immediately available [facility] the entire duration. See resident note for details. * Anesthesia Procedure Notes - Aravind Benton DO - 01/03/2025 8:09 AM EST Associated Order(s): Arterial Line Arterial Line: An arterial line was placed. Procedure performed using ultrasound guidance in the pre-op for the following indication(s): continuous blood pressure monitoring and blood sampling needed. A 20 gauge (size), 1 and 3/4 inch (length), Arrow (type) catheter was placed into the Right radial artery and secured by tape. Seldinger technique used Events: patient tolerated procedure well with no complications. Staffing Performed: Resident Anesthesiologist: Josafat Rivera MD Resident: Aravind Benton DO Cosigned by Josafat Rivera MD at 01/03/2025 8:36 AM EST Associated attestation - Josafat Rivera MD - 01/03/2025 8:36 AM EST I was present during all critical and garcia portions of the procedure(s) and immediately available [facility] the entire duration. See resident note for details. * Anesthesia Procedure Notes - Aravind Benton DO - 01/03/2025 8:08 AM EST Associated Order(s): Arterial Line Arterial Line: Date/Time: 01/03/2025 7:15 AM An arterial line was placed. Procedure performed using ultrasound guidance in the OR for the following indication(s): continuousblood pressure monitoring and blood sampling needed. A 20 gauge (size), 1 and 3/4 inch (length), Arrow (type) catheter was placed into the Left radial artery and secured by tape. Seldinger technique used Events: patient tolerated procedure well with no complications. Staffing Performed: Resident Anesthesiologist: Josafat Rivera MD Resident: Aravind Benton DO Cosigned by Josafat Rivera MD at 01/03/2025 8:36 AM EST Associated attestation - Josafat Rivera MD - 01/03/2025 8:36 AM EST I was present during all critical and garcia portions of the procedure(s) and immediately available [facility] the entire duration. See resident note for details. * Anesthesia Procedure Notes - Aravind Benton DO - 01/03/2025 8:07 AM EST Associated Order(s): Intubation Intubation Date/Time: 01/03/2025 7:08 AM Reason: elective Airway not difficult General Information and Staff Patient location during procedure: OR Anesthesiologist: Josafat Rivera MD Resident: Aravind Benton DO Performed: Resident Patient Condition Indications for airway management: anesthesia Patient position: sniffing Final Airway Details Final airway type: endotracheal airway Successful airway: ETT Cuffed: yes Successful intubation technique: direct laryngoscopy Adjuncts used in placement: intubating stylet Endotracheal tube insertion site: oral Blade: Yifan Blade size: #4 ETT size (mm): 8.0 Cormack-Lehane Classification: grade IIb - view of arytenoids or posterior of glottis only Placement verified by: chest auscultation and capnometry Measured from: lips Additional Comments Atraumatic. No change to dentition. RSI with cp Cosigned by Josafat Rivera MD at 01/03/2025 8:35 AM EST Associated attestation - Josafat Rivera MD - 01/03/2025 8:35 AM EST I was present during all critical and garcia portions of the procedure(s) and immediately available [facility] the entire duration. See resident note for details. * Anesthesia Preprocedure Evaluation - Bruno Luong MD - 01/02/2025 8:16 PM EST Images from the original note were not included. Procedure Information Date/Time: 01/03/25 0600 Procedure: TRANSPLANT, LIVER Location: [facility] OR SO OR Surgeons: Satnam Beckford MD Department of Anesthesiology Perioperative Critical Care and Pain Medicine Patient Information Patient Name: Cesar Tay Date of : 1980 Subjective: Cesar Tay is a 44 y.o. male with a PMHx of Cirrhosis (MELD 27) 2/2 alcohol use ( c/b ascites, HE, SBP), GERD, depression, anxiety, GERD, HTN, Anemia, TUD who presented on 01/02 for possible Liver TXP w/ Dr. Beckford . Denies any other cardiac, respiratory, renal, or metabolic dysfunction. Exercise tolerance >4 METS. Hx of general anesthesia without anesthetic complications. The patienthas been NPO for ... Hr. Pertinent Labs (01/02/25): H/H: 8.7/28.6 PLT:104 PT/INR: 26.5/2.4 PTT: 53 Na: 139 K: 4.2 BUN/Cr.:14/.85 Albumin: 2.9 AST/ALT: 58/28 Pertinent Studies: TTE (10/22/2024): LVEF 61%, normal LVSF. Mildly dilated RV w/ normal RVSF. Minimal intrapulmonary shunt. No significant valvular abnormalaties. NM SPECT (10/22/2024):There is no stress-induced transient ischemic dilation (TID) of the left ventricular cavity. SPECT images demonstrate normal myocardial perfusion. EKG: NSR Past Medical History: has a past medical history of Anxiety, Cirrhosis (CMS/HCC), Depression, Enterocolitis due to Clostridium difficile, not specified as recurrent (11/04/2024), GERD (gastroesophageal reflux disease), Hypertension, and Patient on waiting list for liver transplant (12/30/2024). Relevant Problems Cardio (+) Essential (primary) hypertension GI (+) Alcoholic hepatitis with ascites (Resolved) (+) Decompensation of cirrhosis of liver (CMS/HCC) (+) GERD (gastroesophageal reflux disease) (+) SBP (spontaneous bacterial peritonitis) (+) Unspecified jaundice (Resolved) /Renal (+) Decompensation of cirrhosis of liver (CMS/HCC) Past Surgical History: has a past surgical history that includes Vasectomy. Allergies: Amoxicillin Medications: Current Outpatient Medications Medication Instructions buPROPion [...] times daily spironolactone (ALDACTONE) 50 mg, Daily traZODone (DESYREL) 50 mg, Oral, Nightly Social History: reports that he has never smoked. He has been exposed to tobacco smoke. His smokeless tobacco use includes chew. He reports that he does not currently use alcohol. He reports that he does not use drugs. Tobacco: Tobacco Use: High Risk (12/30/2024) Patient History Smoking Tobacco Use: Never Smokeless Tobacco Use: Current Passive Exposure: Current Alcohol: Alcohol Use: High Risk (01/02/2025) CAGE ASSESSMENT Cage unable to access: Not on file Cage max number of drinks: Not on file Cage Beverages a week: Not on file Cage Questionnaire cut down: 1 Cage questionnaire annoyed: 1 Cage questionnaire guilty: 1 Cage questionnaire eye bark spudder: 1 Cage Overall score: 4 Illicit drug use: Social History Substance and Sexual Activity Drug Use Never Family History: family history is not on file. Objective: WEIGHT: Wt Readings from Last 2 Encounters: 01/02/25 105 kg (232 lb 9.4 oz) 12/30/24 108 kg (237 lb 3.4 oz) [place] Body Weight: [place] body weight: 82.2 kg (181 lb 4.8 oz) Adjusted ideal body weight: 91.5 kg (201 lb 13 oz) BMI: Body mass index is 29.85 kg/m??. Body surface area is 2.34 meters squared. Vital signs: 12/20/2024 7:28 AM 12/20/2024 11:15 AM 12/30/2024 7:05 AM 01/02/2025 9:07 AM 01/02/2025 11:12 AM 01/02/2025 3:31 PM 01/02/2025 7:48 PM Vitals Systolic 126 126 128 144 120 123 141 Diastolic 61 70 78 78 55 69 71 Heart Rate 66 68 71 65 70 69 74 Temp 36.7 C 36.8 C 36.7 C 36.7 C 36.7 C 36.8 C 36.8 C Resp 16 16 16 Weight (kg) 107.6 kg 105.5 kg BMI 30.44 kg/m2 29.85 kg/m2 BSA (m2) 2.37 m2 2.35 m2 Visit Report Report LABORATORIES AND STUDIES: Lab Results Component Value Date WBC 2.84 (L) 01/02/2025 RBC 2.76 (L) 01/02/2025 HGB 8.7 (L) 01/02/2025 HCT 28.6 (L) 01/02/2025 MCV 104 (H) 01/02/2025 MCHC 30.4 (L) 01/02/2025 RDW 20.5 (H) 01/02/2025 PLT 72 (L) 01/02/2025 MPV 10.6 01/02/2025 Lab Results Component Value Date BUN 14 01/02/2025 CL 107 01/02/2025 NA 139 01/02/2025 K 4.2 01/02/2025 TP 6.1 (L) 01/02/2025 AST 58 (H) 01/02/2025 ALT 28 01/02/2025 No results found for: PREALBUMIN Lab Results Component Value Date CEA 9.9 (H) 10/20/2024 Imaging: Encounter Date: 12/17/24 ECG Adult Result Value EKG DIAGNOSIS CLASS Abnormal Ventricular Rate 66 Atrial Rate 66 UT Interval 178 QRSD Interval 88 QT Interval 474 QTC Interval 496 P [place] 45 R [place] 29 T Wave [place] 19 Diagnosis Normal sinus rhythm Diagnosis QTcB >= 480 msec Diagnosis Abnormal ECG Diagnosis Diagnosis Confirmed by Jeff Worthington ([id number]) on 12/18/2024 10:06:13 AM *Note: Due to a large number of results and/or encounters for the requested time period, some results have not been displayed. A complete set of results can be found in Results Review. Echo, Adult Transthoracic Complete Result Date: 10/23/2024 [...] is no recent study available for direct dyqv-vl-ybyh comparison. Anesthesia Related Medical History: AIRWAY HISTORY Airway Detailed Review Displaying the 20 most recent records Date Difficult Airway Blade Size ETT Size C-L Class Final Type Intubation Method 12/18/24 No MEDICATIONS Outpatient Current Outpatient Medications Medication Instructions [...] times daily spironolactone (ALDACTONE) 50 mg, Daily traZODone (DESYREL) 50 mg, Oral, Nightly Scheduled Current Scheduled Medications[1] PRNs Current PRN Medications[2] SURGICAL HX: Surgical History[3] SOCIAL HX: Social History[4] OBJECTIVE DATA LABS Lab Results Component Value Date WBC 2.84 (L) 01/02/2025 HGB 8.7 (L) 01/02/2025 HCT 28.6 (L) 01/02/2025 MCV 104 (H) 01/02/2025 PLT 72 (L) 01/02/2025 Lab Results Component Value Date CALCIUM 8.6 (L) 01/02/2025 BUN 14 01/02/2025 CREATININE 0.85 01/02/2025 BCR 16 01/02/2025 NA 139 01/02/2025 K 4.2 01/02/2025 CL 107 01/02/2025 CO2 22 01/02/2025 Type and Screen ABO/Rh Date Value Ref Range Status 01/02/2025 A Negative Final Results from last 7 days Lab Units 01/02/25 0940 APTT sec 53* INR 2.4* Lab Results Component Value Date HGBA1C <4.0 10/21/2024 Lab Results Component Value Date GLUCOSE 83 01/02/2025 ABG No results found for: PHART , YXC2JRI , PO2ART , SO2ART , BEART , XIA2FOY , HCTART , SODIUMART , POTASSIUMART , POCTCL , POCGLU , IONCALART , LACTATE No results found for: PH , PCO2 , PO2 , R5IZJCIG , BASEEXC , HCTSYR , KSYR , CLSYR , GLUSYR , CAION , LACTATE ECHO Echo, Adult Transthoracic Complete Result Date: [...] is no recent study available for direct uxku-wq-filj comparison. PFTs FEV1 PRE (L) Date/Time Value 10/22/2024 1404 3.09 (A) FEV1 PRED (no units) Date/Time Value 10/22/2024 1404 4.34 AKR5YDW (L) Date/Time Value 10/22/2024 1404 3.76 (A) FVC PRED (no units) Date/Time Value 10/22/2024 1404 5.51 BP Readings from Last 5 Encounters: 01/02/25 (!) 141/71 12/30/24 128/78 12/20/24 126/70 12/17/24 131/67 12/03/24 136/74 Physical Exam Airway Mallampati: II Mouth opening: normal TM distance: >3 FB Cardiovascular Rhythm: regular Rate: normal Dental - normal exam Pulmonary Breath sounds clear to auscultation Neurological Oriented: normal to time, normal to place and normal to person Skin Musculoskeletal Extremities Anesthesia Plan ASA 4 Anesthesia technique(s) discussed with the patient/family: general Anesthesia plan agreed upon was: general ROS Anesthesia: history of previous anesthesia. Does not have a history of anesthetic complications, obstructive sleep apnea and PONV. [1] buPROPion SR, 150 mg, Oral, BID carvedilol, 6.25 mg, Oral, BID [START ON 01/03/2025] escitalopram, 10 mg, Oral, Daily [START ON 01/03/2025] ferrous sulfate, 324 mg, Oral, Daily with breakfast lactulose, 10 g, Oral, TID pantoprazole, 40 mg, Oral, BID rifAXIMin, 550 mg, Oral, BID traZODone, 50 mg, Oral, Nightly [2] [3] Past Surgical History: Procedure Laterality Date VASECTOMY [4] Social History Tobacco Use Smoking status: Never Passive exposure: Current Smokeless tobacco: Current Types: Chew Substance Use Topics Alcohol use: Not Currently Comment: Quit 2 months ago Drug use: Never documented in this encounter Plan of Treatment Upcoming Encounters Date Type Department Care Team (Late st Contact Info) Description 01/23/2025 7:00 AM EST Clinical Support [facility] [place] [address] [place] [address] 01/23/2025 8:40 AM EST Office Visit [facility] [place] [address] [place] [address] Uhxblqrznx-Vynwq-W urgery-Paul 03/06/2025 11:10 AM EST Appointment [facility] [address] [place] [id number] Natalya Valentine MD [address] [facility] [address] [place] [id number] documented as of this encounter Procedures Procedure Name Priority Date/Time Associated Diagnosis Comments ANESTHESIA ARTERIAL LINE PLACEMENT Routine 01/03/2025 8:09 AM EST ANESTHESIA PERIPHERAL IV PLACEMENT Routine 01/03/2025 7:30 AM EST ANESTHESIA ULTRASOUND GUIDED Routine 01/03/2025 7:30 AM EST PB ANESTHESIA NON-TIMED PROCEDURE PLACEHOLDER Routine 01/03/2025 7:30 AM EST UT AN CENTRAL LINE TRIPLE LUMEN Routine 01/03/2025 7:30 AM EST UT INSERT/PLACE FLOW DIRECT CATH Routine 01/03/2025 7:30 AM EST ANESTHESIA ULTRASOUND GUIDED Routine 01/03/2025 7:30 AM EST PB ANESTHESIA NON-TIMED PROCEDURE PLACEHOLDER Routine 01/03/2025 7:30 AM EST UT AN CENTRAL LINE DOUBLE LUMEN Routine 01/03/2025 7:30 AM EST ANESTHESIA ULTRASOUND GUIDED Routine 01/03/2025 7:30 AM EST PB ANESTHESIA NON-TIMED PROCEDURE PLACEHOLDER Routine 01/03/2025 7:30 AM EST UT AN CENTRAL LINE TRIPLE LUMEN Routine 01/03/2025 7:30 AM EST ANESTHESIA ARTERIAL LINE PLACEMENT Routine 01/03/2025 7:15 AM EST PB ANESTHESIA PLACEHOLDER Routine 01/03/2025 7:08 AM EST UT AN ELECTIVE ENDOTRACHEAL AIRWAY Routine 01/03/2025 7:08 AM EST documented in this encounter Results * PB ANESTHESIA NON-TIMED PROCEDURE PLACEHOLDER (01/03/2025 8:09 AM EST) Narrative Josafat Rivera MD - 01/03/2025 8:09 AM EST Josafat Rivera MD 01/03/2025 8:36 AM Arterial Line: An arterial line was placed. Procedure performed using ultrasound guidance in the pre-op for the following indication(s): continuous blood pressure monitoring and blood sampling needed. A 20 gauge (size), 1 and 3/4 inch (length), Arrow (type) catheter was placed into the Right radial artery and secured by tape. Seldinger technique used Events: patient tolerated procedure well with no complications. Staffing Performed: Resident Anesthesiologist: Josafat Rivera MD Resident: Aravind Benton DO us Josafat Rivera MD ANESTHESIA ORDERABLES Final Re sult * Peripheral IV (01/03/2025 7:30 AM EST) Narrative Josafat Rivera MD - 01/03/2025 7:30 AM EST Josafat Rivera MD 01/03/2025 8:36 AM Peripheral IV Date/Time: 01/03/2025 7:30 AM Placement Needle size: 18 G Location: hand Site prep: alcohol Technique: anatomical landmarks Attempts: 1 us Josafat Rivera MD ANESTHESIA ORDERABLES Final Re sult * UT AN CENTRAL LINE TRIPLE LUMEN, PB ANESTHESIA NON-TIMED PROCEDURE PLACEHOLDER, ANESTHESIA ULTRASOUND GUIDED (01/03/2025 7:30 AM EST) Narrative Josafat Rivera MD - 01/03/2025 7:30 AM EST Josafat Rivera MD 01/03/2025 8:36 AM Central Venous Line: Date/Time: 01/03/2025 7:30 AM A central venous line was placed in the OR for the following indication(s): central venous access and CVP monitoring. Sterility preparation included the following: provider hand hygiene performed prior to central venous catheter insertion, all 5 sterile barriers used (gloves, gown, cap, mask, large sterile drape) during central venous catheter insertion, antiseptic used during central venous catheter insertion and skin prep agent completely dried prior to procedure. The patient was placed in Trendelenburg position. Left subclavian vein was prepped. The site was prepped with Chlorhexidine. A 7 Fr (size), 20 (length), introducer triple lumen was placed. During the procedure, the following specific steps were taken: target vein identified, needle advanced into vein and blood aspirated and guidewire advanced into vein. Seldinger technique used Procedure performed using ultrasound guidance Sterile gel and probe cover used in ultrasound-guided central venous catheter insertion. Intravenous verification was obtained by ultrasound, venous blood return and manometry. Post insertion care included: all ports aspirated, all ports flushed easily, guidewire removed intact, Biopatch applied, line sutured in place and dressing applied. During the procedure the patient experienced: patient tolerated procedure well with no complications. Staffing Performed: Resident Anesthesiologist: Josafat Rivera MD Resident: Aravind Benton DO us Josafat Rivera MD ANESTHESIA ORDERABLES Final Re sult * UT AN CENTRAL LINE DOUBLE LUMEN, PB ANESTHESIA NON-TIMED PROCEDURE PLACEHOLDER, ANESTHESIA ULTRASOUND GUIDED, UT INSERT/PLACE FLOW DIRECT CATH (01/03/2025 7:30 AM EST) Narrative Josafat Rivera MD - 01/03/2025 7:30 AM EST Josafat Rivera MD 01/03/2025 8:36 AM Central Venous Line: Date/Time: 01/03/2025 7:30 AM A central venous line was placed in the OR for the following indication(s): CVP monitoring. Sterility preparation included the following: provider hand hygiene performed prior to central venous catheter insertion, all 5 sterile barriers used (gloves, gown, cap, mask, large sterile drape) during central venous catheter insertion, antiseptic used during central venous catheter insertion and skin prep agent completely dried prior to procedure. The patient was placed in Trendelenburg position. Right internal jugular vein was prepped. The site was prepped with Chlorhexidine. A 9 Fr (size), 15 (length), introducer double lumen was placed. This catheter was an oximetric catheter. During the procedure, the following specific steps were taken: target vein identified, needle advanced into vein and blood aspirated and guidewire advanced into vein. Seldinger technique used Procedure performed using ultrasound guidance Sterile gel and probe cover used in ultrasound-guided central venous catheter insertion. Intravenous verification was obtained by ultrasound, venous blood return, transducer, manometry and MAGDA. Post insertion care included: all ports aspirated, all ports flushed easily, guidewire removed intact, Biopatch applied, line sutured in place and dressing applied. During the procedure the patient experienced: patient tolerated procedure well with no complications. PA Catheter Placed A oximetric, 8 (size) Pulmonary Artery Catheter (PAC) was placed through the Introducer CVL in the right internal jugular vein. The PAC placement was confirmed by pressure tracing changes and MAGDA and secured at 48 cm (depth). The patient experienced the following events during the procedure: patient tolerated procedure well with no complications. Staffing Performed: Resident Anesthesiologist: Josafat Rivera MD Resident: Aravind Benton DO Authortyler Provider Result Type Result Stat us Josafat Rivera MD ANESTHESIA ORDERABLES Final Re sult * UT AN CENTRAL LINE TRIPLE LUMEN, PB ANESTHESIA NON-TIMED PROCEDURE PLACEHOLDER, ANESTHESIA ULTRASOUND GUIDED (01/03/2025 7:30 AM EST) Narrative Josafat Rivera MD - 01/03/2025 7:30 AM EST Josafat Rivera MD 01/03/2025 8:36 AM Central Venous Line: Date/Time: 01/03/2025 7:30 AM A central venous line was placed in the OR for the following indication(s): central venous access and CVP monitoring. Sterility preparation included the following: provider hand hygiene performed prior to central venous catheter insertion, all 5 sterile barriers used (gloves, gown, cap, mask, large sterile drape) during central venous catheter insertion, antiseptic used during central venous catheter insertion and skin prep agent completely dried prior to procedure. The patient was placed in Trendelenburg position. Right internal jugular vein was prepped. The site was prepped with Chlorhexidine. Catheter size: 13 Fr. 15 (length), introducer triple lumen was placed. During the procedure, the following specific steps were taken: target vein identified, needle advanced into vein and blood aspirated and guidewire advanced into vein. Seldinger technique used Procedure performed using ultrasound guidance Sterile gel and probe cover used in ultrasound-guided central venous catheter insertion. Intravenous verification was obtained by ultrasound, venous blood return, transducer, manometry and MAGDA. Post insertion care included: all ports aspirated, all ports flushed easily, guidewire removed intact, Biopatch applied, line sutured in place and dressing applied. During the procedure the patient experienced: patient tolerated procedure well with no complications. Staffing Performed: Resident Anesthesiologist: Josafat Rivera MD Resident: Aravind Benton DO us Josafat Rivera MD ANESTHESIA ORDERABLES Final Re sult * PB ANESTHESIA NON-TIMED PROCEDURE PLACEHOLDER (01/03/2025 7:15 AM EST) Narrative Josafat Rivera MD - 01/03/2025 7:15 AM EST Josafat Rivera MD 01/03/2025 8:36 AM Arterial Line: Date/Time: 01/03/2025 7:15 AM An arterial line was placed. Procedure performed using ultrasound guidance in the OR for the following indication(s): continuous blood pressure monitoring and blood sampling needed. A 20 gauge (size), 1 and 3/4 inch (length), Arrow (type) catheter was placed into the Left radial artery and secured by tape. Seldinger technique used Events: patient tolerated procedure well with no complications. Staffing Performed: Resident Anesthesiologist: Josafat Rivera MD Resident: Aravind Benton DO us Josafat Rivera MD ANESTHESIA ORDERABLES Final Re sult * UT AN ELECTIVE ENDOTRACHEAL AIRWAY, PB ANESTHESIA PLACEHOLDER (01/03/2025 7:08 AM EST) Narrative Josafat Rivera MD - 01/03/2025 7:08 AM EST Josafat Rivera MD 01/03/2025 8:35 AM Intubation Date/Time: 01/03/2025 7:08 AM Reason: elective Airway not difficult General Information and Staff Patient location during procedure: OR Anesthesiologist: Josafat Rivera MD Resident: Aravind Benton DO Performed: Resident Patient Condition Indications for airway management: anesthesia Patient position: sniffing Final Airway Details Final airway type: endotracheal airway Successful airway: ETT Cuffed: yes Successful intubation technique: direct laryngoscopy Adjuncts used in placement: intubating stylet Endotracheal tube insertion site: oral Blade: Yifan Blade size: #4 ETT size (mm): 8.0 Cormack-Lehane Classification: grade IIb - view of arytenoids or posterior of glottis only Placement verified by: chest auscultation and capnometry Measured from: lips Additional Comments Atraumatic. No change to dentition. RSI with cp us Josafat Rivera MD ANESTHESIA ORDERABLES Final Re sult documented in this encounter Visit Diagnoses Not on filedocumented in this encounter Administered Medications Inactive Administered Medications - up to 3 most recent administrations Medication Order MAR Action Action Date Dose Rate Site albumin human 5 % infusion Intravenous, As needed, Starting on 01/03/25 at 0830, Until 01/03/25 at 1502, Routine, Anesthesia Intraprocedure Given 01/03/2025 8:36 AM EST 250 mL Given 01/03/2025 8:30 AM EST 250 mL aminocaproic acid (Amicar) injection Intravenous, As needed, Starting on 01/03/25 at 1147, Until 01/03/25 at 1502, Routine, Anesthesia Intraprocedure Given 01/03/2025 11:47 AM EST 5 g calcium chloride 10 % injection Intravenous, As needed, Starting on 01/03/25 at 0837, Until 01/03/25 at 1502, Routine, Anesthesia Intraprocedure Given 01/03/2025 10:17 AM EST 1 g Given 01/03/2025 8:37 AM EST 1 g dextrose 50 % solution Intravenous, Continuous PRN, Starting on 01/03/25 at 1059, Until 01/03/25 at 1502, Routine, Anesthesia Intraprocedure Restarted 01/03/2025 1:41 PM EST New Bag 01/03/2025 10:59 AM EST fentaNYL (Sublimaze) injection Intravenous, As needed, Starting on 01/03/25 at 0705, Until 01/03/25 at 1502, Routine, Anesthesia Intraprocedure Given 01/03/2025 11:01 AM EST 50 mcg Given 01/03/2025 7:05 AM EST 100 mcg fluconazole in NS (Diflucan) IVPB 400 mg 400 mg, Intravenous, Once, 1 dose, On 01/03/25 at 0700, STAT, Holding - Preprocedure New Bag 01/03/2025 8:05 AM EST 400 mg furosemide (Lasix) injection Intravenous, As needed, Starting on 01/03/25 at 0808, Until 01/03/25 at 1502, Anesthesia Intraprocedure, Routine Given 01/03/2025 8:08 AM EST 60 mg insulin regular (HumuLIN R,NovoLIN R) 100 UNIT/ML injection Intravenous, As needed, Starting on 01/03/25 at 1059, Until 01/03/25 at 1502, Routine, Anesthesia Intraprocedure Given 01/03/2025 1:40 PM EST 4 U nits Given 01/03/2025 10:59 AM EST 8 Units ketamine (Ketalar) injection Intravenous, As needed, Starting on 01/03/25 at 0705, Until 01/03/25 at 1502, Routine, Anesthesia Intraprocedure Given 01/03/2025 7:05 AM EST 50 mg lactated Ringer's infusion Intravenous, Continuous PRN, Starting on 01/03/25 at 0705, Until 01/03/25 at 1502, Routine New Bag 01/03/2025 7:05 AM EST Lidocaine HCl prefilled syringe Buccal, As needed, Starting on 01/03/25 at 0705, Anesthesia Intraprocedure Given 01/03/2025 7:05 AM EST 100 mg LORazepam (Ativan) injection Intravenous, As needed, Starting on 01/03/25 at 0705, Until 01/03/25 at 1502, Routine, Anesthesia Intraprocedure Given 01/03/2025 7:05 AM EST 2 mg methylPREDNISolone sodium succinate (PF) (SOLU-Medrol) injection Intravenous, As needed, Starting on 01/03/25 at 1023, Until 01/03/25 at 1502, Routine, Anesthesia Intraprocedure Given 01/03/2025 10:23 AM EST 500 mg norepinephrine infusion 8 mg in 250 mL NS (0.032 mg/mL) (compounding pharmacy premix) Intravenous, Continuous PRN, Starting on 01/03/25 at 1004, Until 01/03/25 at 1502, STAT, Anesthesia Intraprocedure Rate/Dose Change 01/03/2025 12:50 PM EST 0.02 mcg/kg/min 3.956 mL/hr Rate/Dose Change 01/03/2025 12:20 PM EST 0.03 mcg/kg/min 5 .934 mL/hr Rate/Dose Change 01/03/2025 11:52 AM EST 0.02 mcg/kg/min 3 .956 mL/hr piperacillin-tazobactam (Zosyn) injection Intravenous, As needed, Starting on 01/03/25 at 0805, Until 01/03/25 at 1502, Routine, Anesthesia Intraprocedure Given 01/03/2025 1:59 PM EST 4.5 g Given 01/03/2025 12:01 PM EST 4.5 g Given 01/03/2025 10:05 AM EST 4.5 g propofol (Diprivan) infusion 10 mg/mL Intravenous, Continuous PRN, Starting on 01/03/25 at 1332, Until 01/03/25 at 1502, Routine New Bag 01/03/2025 1:32 PM EST 20 mcg/kg/min 12.66 mL/hr propofol (Diprivan) injection Intravenous, As needed, Starting on 01/03/25 at 0705, Until 01/03/25 at 1502, Routine, Anesthesia Intraprocedure Given 01/03/2025 7:05 AM EST 150 mg rocuronium (ZeMuron) injection Intravenous, As needed, Starting on 01/03/25 at 0705, Until 01/03/25 at 1502, Routine, Anesthesia Intraprocedure Given 01/03/2025 11:47 AM EST 50 mg Given 01/03/2025 10:07 AM EST 50 mg Given 01/03/2025 8:51 AM EST 50 mg sodium chloride 0.9 % infusion Intravenous, Continuous PRN, Starting on 01/03/25 at 0736, Until 01/03/25 at 1502, Routine Restarted 01/03/2025 11:56 AM EST Rate/Dose Change 01/03/2025 7:37 AM EST 50 mL/h r New Bag 01/03/2025 7:36 AM EST sufentanil (Sufenta) 50 mcg in sodium chloride 0.9 % 10 mL infusion Intravenous, Continuous PRN, Starting on 01/03/25 at 0800, Until 01/03/25 at 1502, Routine New Bag 01/03/2025 8:00 AM EST 0.1 mcg/kg/hr 2.321 mL/hr Transfuse fresh frozen plasma Routine New Bag 01/03/2025 8:00 AM EST Transfuse fresh frozen plasma Routine New Bag 01/03/2025 8:01 AM EST Transfuse fresh frozen plasma Routine New Bag 01/03/2025 8:38 AM EST Transfuse fresh frozen plasma Routine New Bag 01/03/2025 9:49 AM EST Transfuse fresh frozen plasma Routine New Bag 01/03/2025 9:58 AM EST Transfuse fresh frozen plasma Routine New Bag 01/03/2025 10:21 AM EST Transfuse fresh frozen plasma Routine New Bag 01/03/2025 11:27 AM EST Transfuse fresh frozen plasma Routine New Bag 01/03/2025 12:24 PM EST Transfuse platelets Routine New Bag 01/03/2025 11:59 AM EST Transfuse RBC Routine New Bag 01/03/2025 8:07 AM EST Transfuse RBC Routine New Bag 01/03/2025 8:39 AM EST Transfuse RBC Routine New Bag 01/03/2025 9:47 AM EST Transfuse RBC Routine New Bag 01/03/2025 9:56 AM EST Transfuse RBC Routine New Bag 01/03/2025 10:18 AM EST Transfuse RBC Routine New Bag 01/03/2025 10:59 AM EST Transfuse RBC Routine New Bag 01/03/2025 11:28 AM EST Transfuse RBC Routine New Bag 01/03/2025 12:59 PM EST vasopressin (Vasostrict) injection Subcutaneous, As needed, Starting on 01/03/25 at 0832, Until 01/03/25 at 1502, Routine, Anesthesia Intraprocedure Given 01/03/2025 12:11 PM EST 1 Units Given 01/03/2025 8:32 AM EST 1 Units documented in this encounter Additional Health Concerns Assessment Noted Time PHQ-9 Depression Total Score: 13 025 7:10 AM EST A fall risk assessment has been complete d for the patient 12/30/2024 7:10 AM EST A Body Mass Index follow-up plan has been documented for the patient 01/16/2025 4:11 PM EST documented as of this encounter Care Teams Boilerhouse Mechanic Relationship Specialty Start Date End Date Param Eng DO [address] [place] [address] [place] [id number] PCP - General 12/22/24 documented as of this encounter
--- OUTSIDE RECORDS SUMMARY | 2025-01-12 11:55 | XMS_ITS | Encounter Summary ---
Author Organization Healthcare Address [address] [place] [address] Care Team Providers Care Residential Air Sealing Technician Name Role Phone Param Eng DO Primary Care Provider [phone] Reason for Visit * Auth/Cert (Routine) Specialty Diagnoses / Procedures Referred By Contwen t Referred To Contact Diagnoses Decompensation of cirrhosis of liver (CMS/HCC) Satnam Beckford MD [address] [place] [address] Phone: tel: fax: [facility] Inpatient [address] [place] [address] Phone: tel: Referral ID Status Reason Start Date Expiration Date Visits Re quested Visits Authorized [id number] 1 1 Encounter Details Date Type Department Care Team (Late st Contact Info) Description 2025 11:55 AM EST Anesthesia Event [facility] Endoscopy [address] [place] [address] Da De MD [address] [place] [address] Anesthesia Record Procedure Summary Procedure Name Responsible Anesthesiologist Anesthesia Start Time Anesthesia Stop Time ERCP Da De MD 01/12/25 1155 01/12/25 1309 Events Date Time Event Comment 2025 1034 1155 In Room 1155 An Start The patient was reevaluated immediately before sedation and remains eligible for anesthesia plan. 1156 An Start Data 1158 An Induction The patient was reevaluated immediately before moderate or deep sedation use and before anesthesia induction. 1159 An Intubation 1200 Anesthesia Ready 1208 Proc Start 1215 Prone Pressure Check Eyes an d nose free of pressure 1230 Prone Pressure Check Eyes an d nose free of pressure 1243 Prone Pressure Check Eyes an d nose free of pressure 1246 Proc Fin 1256 An Extubation 1258 an stop data 1258 Out of Room 1308 Handoff to Receiving I compl eted my handoff to the receiving clinician during which we: 1. Identified the patient 2. Identified the responsible provider 3. Reviewed the pertinent medical history 4. Discussed the surgical course 5. Reviewed intra-op anesthesia management and issues during anesthesia 6. Set expectations for post-procedure period 7. Allowed opportunity for questions and acknowledgement of understanding. 1309 An Stop Meds Name Total propofol (Diprivan) injection 10 mg/mL 2 00 mg ondansetron (Zofran) injection 2 mg/mL 4 mg dexamethasone (Decadron) injection 4 mg/ mL 4 mg rocuronium (ZeMuron) injection 10 mg/mL 40 mg lidocaine PF (Xylocaine-MPF) 2% 130 mg succinylcholine (Anectine) injection 20 mg/mL 140 mg sugammadex (Bridion) injection 100 mg/mL 200 mg lactated Ringer's infusion 500 mL * Agents Name O2 * Blood No blood administrations on file. Lines, Drains, and Airways Type Details Placement Removal Wound 01/03/25; 0828; N; Surgical; Closed Surgi; Abdomen; Upper 01/03/25 0828 by Ritu Buenrostro RN Peripheral IV Placement Date: 12/14 03/08; Placement Time: 1000; Catheter Size: 20 G; Orientation: Left, Posterior; Location: Wrist; Site Prep: Alcohol; Technique: Anatomical landmarks; Inserted by: Tania Florian RN; Insertion Attempts: 1; Patient Tolerance: Tolerated well; Removal Date: 01/16/25; Removal Time: 1545 01/02/25 1000 by Jolene Florian RN 01/16/25 1545 by Armida Oscar RN Peripheral IV Placement Date: 12/14 04/08; Placement Time: 0730 (created via procedure documentation); Catheter Size: 18 G; Orientation: Right, Posterior; Location: Hand; Technique: Anatomical landmarks; Insertion Attempts: 1; Removal Date: 01/16/25; Removal Time: 1545 01/03/25 0730 by Aravind Benton DO 01/16/25 1545 by Armida Oscar RN ETT Placement Date: 03/08; Placement Time: 1159 (created via procedure documentation); Technique: Video laryngoscopy; Type: ETT - single; Single Lumen Tube Size: 7.5 mm; Cuffed: Yes; Laryngoscope: Yifan; Location: Oral; Grade View: Grade I; Insertion Attempts: 1; Placement Verification: Auscultation, Capnometry; Airway Comments: Atraumatic. No change to dentition. ; Placed by: PADILLA; Removal Date: 01/12/25; Removal Time: 1256 01/12/25 1159 by Bethany Ayers CRNA 01/12/25 1256 by Bethany Ayers CRNA documented in this encounter Social History Tobacco [...] or relatives? Twice a week 01/02/2025 Attends [employer] Services Not on file 01/02 Do you belong to any clubs o r organizations such as latter-day groups, unions, fraternal or athletic groups, or [...] housing, medical care, and heating? Hard 01/02/2025 [facility] - Occupational Stress Questionnaire Answer Date Recorded [...] any time in the past 12 m [facility], were you homeless or living in a long-term (including now)? No 01/02/2025 [facility] Utilities Answer Date Recorded In the [...] drink first t edgardo in the morning (EYE-LOCAL HAZMAT DRIVER) to steady your nerves or to get rid of a hangover? 1 01/02/2025 CAGE Questionnaire Score 4 025 Sex and Gender Information Value Date Recorded Sex Assigned at Not on file Legal Sex Male 2:45 PM EDT Gender Identity Not on file Sexual Orientation Not on file documented as of this encounter Functional Status * Question Answer Date of Assessment Author Precautions Fall risk;Environmen adrianna surveillance 2025 8:00 AM Bree Patton RN * Calculated C-SSRS Risk Score (Lifetime/Recent) Answer Date of Assessment Author No Risk Indicated 2025 8:00 AM Bree Patton, RN * Question Answer Date of Assessment Author 1. Wish to be (Past 1 Month) No 025 8:00 AM Bree Patton RN 2. Non-Specific Active Suici joceline Thoughts (Past 1 Month) No 2025 8:00 AM EST Gideon Mcfarland RN 6. Suicidal Behavior (Lifetime) No 8:00 AM Bree Patton RN documented as of this encounter Mental Status * Question Answer Entry Date Author Precautions Fall risk;Jatin hernandez 2025 8:00 AM Bree Patton RN documented in this encounter Miscellaneous Notes * Addendum Note - Bethany Ayers CRNA - 2025 3:16 PM EST Addendum created 01/12/25 1516 by Bethany Ayers CRNA Flowsheet accepted, Intraprocedure Flowsheets edited * Anesthesia Postprocedure Evaluation - Bethany Ayers CRNA - 2025 1:09 PM EST Patient: Cesar Tay Anesthesia Type: general Vitals Value Taken Time BP 144/86 01/12/25 13:05 Temp 98.4 01/12/25 13:09 Pulse 70 01/12/25 13:08 Resp 15 01/12/25 13:08 SpO2 97 % 01/12/25 13:08 Vitals shown include unfiled device data. Anesthesia Post Evaluation Patient location during evaluation: PACU Patient participation: complete - patient participated Level of consciousness: awake Pain management: adequate (pain score 0-3) Airway patency: natural airway Cardiovascular status: acceptable and hemodynamically stable Respiratory status: acceptable, face mask and nonlabored ventilation Hydration status: acceptable Nausea/Vomiting: No No notable events documented. * Anesthesia Procedure Notes - Bethany Ayers CRNA - 2025 12:11 PM EST Associated Order(s): Airway Airway Date/Time: 2025 11:59 AM Reason: elective Airway not difficult General Information and Staff Patient location during procedure: OR BUILDINGS AND GROUNDS SUPERINTENDENT: Bethany Ayers CRNA Performed: BUILDINGS AND GROUNDS SUPERINTENDENT Patient Condition Indications for airway management: anesthesia Patient position: sniffing Final Airway Details Final airway type: endotracheal airway Successful airway: ETT Cuffed: yes Successful intubation technique: video laryngoscopy Adjuncts used in placement: intubating stylet Endotracheal tube insertion site: oral Blade: Yifan ETT size (mm): 7.5 Cormack-Lehane Classification: grade I - full view of glottis Placement verified by: chest auscultation and capnometry Measured from: lips ETT to lips (cm): 22 Additional Comments Atraumatic. No change to dentition. * Anesthesia Preprocedure Evaluation - Da De MD - 2025 7:21 AM EST Patient: Cesar Tay HPI Cesar Tay is a 45 y.o. male with body mass index is unknown because there is no height or weight on file. who presents with No Principal Problem: There is no principal problem currently onthe Problem List. Please update the Problem List and refresh., now for 45 y.o. male with a PMHx of Cirrhosis (MELD 27) 2/2 alcohol use ( c/b ascites, HE, SBP), GERD, depression, anxiety, GERD, HTN, Anemia, TUD who presented on 01/02 for possible Liver TXP w/ Dr. Beckford now presents for ERCP for elevated INR eval. Procedure Information Date/Time: 01/12/25 1030 Scheduled providers: Da De MD; Bethany Ayers CRNA; Parmjit Garcia MD Procedure: ERCP Location: [facility] H Endoscopy Relevant Problems Cardio (+) Essential (primary) hypertension GI (+) Decompensation of cirrhosis of liver (CMS/HCC) (+) GERD (gastroesophageal reflux disease) (+) SBP (spontaneous bacterial peritonitis) /Renal (+) NINA (acute kidney injury) (+) Decompensation of cirrhosis of liver (CMS/HCC) ALLERGIES Allergies[1] NPO STATUS Past Medical History[2] AIRWAY HISTORY Airway Detailed Review Displaying the 20 most recent records Date Difficult Airway Blade Size ETT Size C-L Class Final Type Intubation Method 01/03/25 No 4 8.0 grade IIb - view of arytenoids or posterior of glottis only endotracheal airway direct laryngoscopy 12/18/24 No MEDICATIONS Outpatient Current Outpatient Medications Medication Instructions acetaminophen (TYLENOL) 500 mg, Oral, Every 6 hours PRN, Max 2000 mg per 24 hours. aspirin 81 mg, Oral, Daily buPROPion SR (Wellbutrin SR) 150 MG 12 hr tablet Take 1 tablet by mouth daily for 3 days, THEN 1 tablet 2 times a day. Do not crush, chew, or split. carvedilol (COREG) 25 mg, Oral, 2 times daily ciprofloxacin (CIPRO) 500 mg, Oral, Daily escitalopram (LEXAPRO) 10 mg, Oral, Daily ferrous sulfate 324 mg, Oral, Daily with breakfast, Do not crush, chew, or split. fluconazole (DIFLUCAN) 200 mg, Oral, Daily furosemide (LASIX) 20 mg, Daily lactulose (CHRONULAC) 10 g, Oral, 3 times daily Misc. Devices (Pill Box 7 Day) misc Pill box Multiple Vitamins-Minerals (Mens Multi Health Formula) tablet 1 tablet, Oral, Daily mycophenolate (CELLCEPT) 1,000 mg, Oral, 2 times daily, Z94.4. Txp Date: 01/03/25 nutrional drink glucose control (Boost Glucose Control) liquid liquid 237 mL, Oral, 2 times daily pantoprazole (PROTONIX) 40 mg, Oral, 2 times daily, Do not crush, chew, or split. predniSONE (DELTASONE) 5 mg, Oral, Daily rifAXIMin (XIFAXAN) 550 mg, Oral, 2 times daily senna-docusate sodium (Senokot-S) 8.6-50 MG tablet 1 tablet, Oral, 2 times daily PRN spironolactone (ALDACTONE) 50 mg, Daily sulfamethoxazole-trimethoprim (Bactrim) 400-80 MG tablet 1 tablet, Oral, Daily tacrolimus (PROGRAF) 2 mg, Oral, 2 times daily (0600 & 1800), Z94.4. transplant date 01/03/25 traZODone (DESYREL) 50 mg, Oral, Nightly valGANciclovir (VALCYTE) 450 mg, Oral, Daily, Do not crush or chew. Scheduled Current Scheduled Medications[3] PRNs Current PRN Medications[4] SURGICAL HX: Surgical History[5] SOCIAL HX: Social History[6] OBJECTIVE DATA LABS Lab Results Component Value Date WBC 5.23 2025 HGB 8.1 (L) 2025 HCT 24.3 (L) 2025 MCV 98 2025 PLT 45 (L) 2025 Lab Results Component Value Date CALCIUM 7.6 (L) 2025 BUN 26 (H) 2025 CREATININE 1.26 (H) 2025 BCR 21 2025 NA 133 (L) 2025 K 3.6 2025 CL 102 2025 CO2 23 2025 Type and Screen No results found for: ABO Results from last 7 days Lab Units 01/12/25 0451 INR 1.2* Lab Results Component Value Date HGBA1C <4.0 10/21/2024 Lab Results Component Value Date PGLU 135 (H) 2025 GLUCOSE 76 2025 ABG Lab Results Component Value Date PHART 7.34 (L) 01/03/2025 HVO1RPS 35 01/03/2025 PO2ART 159 (H) 01/03/2025 SO2ART 99 (H) 01/03/2025 BEART -6.3 (L) 01/03/2025 HTS1QIP 21 (L) 01/03/2025 HCTART 24.0 (L) 01/03/2025 SODIUMART 139 01/03/2025 POTASSIUMART 4.8 01/03/2025 POCTCL 112 (H) 01/03/2025 POCGLU 165 (H) 01/03/2025 IONCALART 5.4 (H) 01/03/2025 LACTATE 1.7 (H) 01/03/2025 Lab Results Component Value Date PH 7.31 (L) 01/03/2025 PCO2 42 01/03/2025 PO2 53 (H) 01/03/2025 O3BILZAE 99 (H) 01/03/2025 BASEEXC -5.2 (L) 01/03/2025 HCTSYR 26.4 (L) 01/03/2025 KSYR 4.5 01/03/2025 CLSYR 115 (H) 01/03/2025 GLUSYR 145 (H) 01/03/2025 CAION 5.2 (H) 01/03/2025 LACTATE 1.7 (H) 01/03/2025 ECHO Echo, Adult Transthoracic Complete Result Date: [...] is no recent study available for direct otsq-kb-qfkv comparison. PFTs FEV1 PRE (L) Date/Time Value 10/22/2024 1404 3.09 (A) FEV1 PRED (no units) Date/Time Value 10/22/2024 1404 4.34 [id number] (L) Date/Time Value 10/22/2024 1404 3.76 (A) FVC PRED (no units) Date/Time Value 10/22/2024 1404 5.51 BP Readings from Last 5 Encounters: 01/12/25 (!) 140/71 12/30/24 128/78 12/20/24 126/70 12/17/24 131/67 12/03/24 136/74 Physical Exam Airway Mallampati: II Mouth opening: normal TM distance: >3 FB Neck ROM: full Cardiovascular Rhythm: regular Rate: normal Dental - normal exam Pulmonary Breath sounds clear to auscultation Neurological Oriented: normal to time, normal to place and normal to person Skin Comments: icterus Musculoskeletal Extremities Anesthesia Plan ASA 4 Anesthesia technique(s) discussed with the patient/family: general Anesthesia plan agreed upon was: general Anesthetic plan and risks discussed with patient. Use of blood products discussed with patient who consented to blood products. Anesthesia Evaluation Airway Detailed Review Displaying the 20 most recent records Date Difficult Airway Blade Size ETT Size C-L Class Final Type Intubation Method 01/03/25 No 4 8.0 grade IIb - view of arytenoids or posterior of glottis only endotracheal airway direct laryngoscopy 12/18/24 No [1] Allergies Allergen Reactions Amoxicillin Hives and Rash Childhood allergy [2] Past Medical History: Diagnosis Date Anxiety Ascites Cirrhosis (CMS/HCC) Depression Enterocolitis due to Clostridium difficile, not specified as recurrent 11/04/2024 Esophageal varices GERD (gastroesophageal reflux disease) Hepatic encephalopathy (CMS/HCC) Hypertension Patient on waiting list for liver transplant 12/30/2024 SBP (spontaneous bacterial peritonitis) Tobacco use disorder [3] [4] [5] Past Surgical History: Procedure Laterality Date VASECTOMY [6] Social History Tobacco Use Smoking status: Never Passive exposure: Current Smokeless tobacco: Current Types: Chew Substance Use Topics Alcohol use: Not Currently Comment: Quit 2 months ago Drug use: Never documented in this encounter Plan of Treatment Upcoming Encounters Date Type Department Care Team (Late st Contact Info) Description 01/23/2025 7:00 AM EST Clinical Support [facility] [address] [place] [address] 01/23/2025 8:40 AM EST Office Visit [facility] [address] [place] [address] [facility]Ry[facility] urgery-Paul 03/06/2025 11:10 AM EST Appointment [facility] End[facility] [address] [place] [address] Natalya Valentine MD [address] [facility] [address] [place] [address] documented as of this encounter Procedures Procedure Name Priority Date/Time Associated Diagnosis Comments PB ANESTHESIA PLACEHOLDER Routine 2025 11:59 AM EST RI AN ELECTIVE ENDOTRACHEAL AIRWAY Routine 2025 11:59 AM EST documented in this encounter Results * RI AN ELECTIVE ENDOTRACHEAL AIRWAY, PB ANESTHESIA PLACEHOLDER (2025 11:59 AM EST) Narrative Bethany Ayers CRNA - 2025 11:59 AM EST Bethany Ayers CRNA 2025 12:20 PM Airway Date/Time: 2025 11:59 AM Reason: elective Airway not difficult General Information and Staff Patient location during procedure: OR BUILDINGS AND GROUNDS SUPERINTENDENT: Bethany Ayers CRNA Performed: BUILDINGS AND GROUNDS SUPERINTENDENT Patient Condition Indications for airway management: anesthesia Patient position: sniffing Final Airway Details Final airway type: endotracheal airway Successful airway: ETT Cuffed: yes Successful intubation technique: video laryngoscopy Adjuncts used in placement: intubating stylet Endotracheal tube insertion site: oral Blade: Yifan ETT size (mm): 7.5 Cormack-Lehane Classification: grade I - full view of glottis Placement verified by: chest auscultation and capnometry Measured from: lips ETT to lips (cm): 22 Additional Comments Atraumatic. No change to dentition. us Da De MD ANESTHESIA ORDERABLES Edited Re sult - Final documented in this encounter Visit Diagnoses Not on filedocumented in this encounter Administered Medications Inactive Administered Medications - up to 3 most recent administrations Medication Order MAR Action Action Date Dose Rate Site dexamethasone (Decadron) injection Intravenous, As needed, Starting on Sun01/12/25 at 1205, Until Sun01/12/25 at 1309, Routine, Anesthesia Intraprocedure Given 2025 12:05 PM EST 4 mg lactated Ringer's infusion 100 mL/hr, Intravenous, Once, 1 dose, On Sun01/12/25 at 1115, Routine New Bag 2025 11:58 AM EST lidocaine PF (Xylocaine) 2 % injection Intravenous, As needed, Starting on Sun01/12/25 at 1158, Until Sun01/12/25 at 1309, Routine, Anesthesia Intraprocedure Given 2025 12:48 PM EST 80 mg Given 2025 11:58 AM EST 50 mg ondansetron (Zofran) injection Intravenous, As needed, Starting on Sun01/12/25 at 1205, Until Sun01/12/25 at 1309, Routine, Anesthesia Intraprocedure Given 2025 12:05 PM EST 4 mg propofol (Diprivan) injection Intravenous, As needed, Starting on Sun01/12/25 at 1158, Until Sun01/12/25 at 1309, Routine, Anesthesia Intraprocedure Given 2025 12:03 PM EST 50 mg Given 2025 11:58 AM EST 150 mg rocuronium (ZeMuron) injection Intravenous, As needed, Starting on Sun01/12/25 at 1158, Until Sun01/12/25 at 1309, Routine, Anesthesia Intraprocedure Given 2025 12:32 PM EST 10 mg Given 2025 12:03 PM EST 25 mg Given 2025 11:58 AM EST 5 mg succinylcholine (Anectine) injection Intravenous, As needed, Starting on Sun01/12/25 at 1209, Until Sun01/12/25 at 1309, Routine, Anesthesia Intraprocedure Given 2025 11:58 AM EST 140 mg sugammadex (Bridion) 100 MG/ML injection Intravenous, As needed, Starting on Sun01/12/25 at 1248, Until Sun01/12/25 at 1309, Routine, Anesthesia Intraprocedure Given 2025 12:48 PM EST 200 mg documented in this encounter Additional Health Concerns Assessment Noted Time PHQ-9 Depression Total Score: 13 025 7:10 AM EST A fall risk assessment has been complete d for the patient 12/30/2024 7:10 AM EST A Body Mass Index follow-up plan has been documented for the patient 01/16/2025 4:11 PM EST documented as of this encounter Care Teams Residential Air Sealing Technician Relationship Specialty Start Date End Date Param Eng DO [address] [place] [address] [place], [place] [address] PCP - General 12/22/24 documented as of this encounter
--- OUTSIDE RECORDS SUMMARY | 2025-01-20 08:40 | XMS_ITS | Encounter Summary ---
Author Organization [facility] Address [address] [place] [address] Care Team Providers Care Rivet Machine Operator Name Role Phone Velasquez Param Augie HORTON Primary Care Provider [phone] Reason for Visit * Reason Comments Immunosuppression Liver Txp Post-Op Encounter Details Date Type Department Care Team (Late st Contact Info) Description 01/20/2025 8:40 AM EST Office Visit [facility] [address] [address] Chacha Heard APRN [address] [facility] [place] [address] Transplant-Liver- Surgery-Paul Liver replaced by [...] or relatives? Twice a week 01/02/2025 Attends Anabaptism Services Not on file 01/02 Do you belong to any clubs o r organizations such as denominational groups, unions, fraternal or athletic groups, or [...] housing, medical care, and heating? Hard 01/02/2025 [facility] - Occupational Stress Questionnaire Answer [...] were you homeless or living in a penitentiary (including now)? No 01/02/2025 [facility] Utilities Answer Date Recorded In the past 12 months has [facility] [employer], gas, oil, or water [employer] threatened to shut off services in your [...] drink first t edgardo in the morning (EYE-ROVING DEPARTMENT END FINDER) to steady your nerves or to get [...] all 01/20/2025 7:11 AM Randi Reyna RN documented as of this encounter Miscellaneous Notes * Clinician Note [...] muscle jerking at bedtime. Prescription sent to [facility] to machine operator hop picker after today's clinic visit. Start magnesium supplement for low Mg. Prescription for magnesium oxide 400 mg (1 tab) twice a day sent to [facility] to machine operator hop picker after today's clinic visit. Also try [...] the meantime. * Addendum Note - Chacha Heard APRN - 01/20/2025 8:40 AM ESTAddended by: CHACHA HEARD on: 01/20/2025 02:20 PM Modules accepted: Orders * Progress Notes - Chacha Heard APRN - 01/20/2025 8:40 AM EST Following [...] by PO prednisone taper. He lives in [place], [place]. Spouse's name is Patricia. Post-transplant, he [...] placement (Post-transplant) SOCIAL HISTORY He lives in [place]. 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 He has [...] staple and taking out stitches. - Technique: [place] and stitches were removed. - Biliary stricture. [...] Childhood allergy * Progress Notes - Chacha Heard APRN - 01/20/2025 8:40 AM EST Tacrolimus level came back as 3.0, please have patient increase tacrolimus to 3 mg twice daily. documented in this encounter Plan of Treatment Upcoming Encounters Date Type Department Care Team (Late st Contact Info) Description 01/23/2025 8:40 AM EST Office Visit [facility] [address] [place] [address] Wbzbimfvic-Ciizc-Yho rosemary-Paul 03/06/2025 11:10 AM EST Appointment [facility] [address] [place] [address] Natalya Valentine MD [address] [place] [id number] Scheduled Orders Name Type Priority Associated Diagnoses Orde r Schedule Magnesium, Plasma Lab Routine Liver replaced by transplant Encounter for long-term (current) use of high-risk medication Immunosuppression (CMS/HCC) Expected: 01/23/2025, Expires: 07/24/2026 Comprehensive Metabolic Panel, Plasma Lab Routine Liver replaced by transplant Encounter for long-term (current) use of high-risk medication Immunosuppression (CMS/HCC) Expected: 01/23/2025, Expires: 07/24/2026 CBC W/O Differential Lab Routine Liver replaced by transplant Encounter for long-term (current) use of high-risk medication Immunosuppression (CMS/HCC) Expected: 01/23/2025, Expires: 07/24/2026 Tacrolimus Lab Routine Liver replaced by transplant Encounter for long-term (current) use of high-risk medication Immunosuppression (CMS/HCC) Expected: 01/23/2025, Expires: 07/24/2026 GGT, Plasma Lab Routine Liver replaced by transplant Encounter for long-term (current) use of high-risk medication Immunosuppression (CMS/HCC) Expected: 01/23/2025, Expires: 07/24/2026 documented as of this encounter Visit Diagnoses Diagnosis Liver replaced [...] Time PHQ-9 Depression Total Score: 9 01/21/20 25 7:11 AM EST A fall risk assessment has been complete d for the patient 01/20/2025 7:12 AM EST A Body Mass Index follow-up plan has been documented for the patient 01/20/2025 3:46 PM EST documented as of this encounter Care Teams Rivet Machine Operator Relationship Specialty Start Date End Date Param Eng DO [address] [place], [place] [address] PCP - General 12/22/24 documented as of this encounter
--- OUTSIDE RECORDS SUMMARY | 2025-01-23 06:57 | XMS_ITS | Encounter Summary ---
Author Organization [facility] Address [address] [place] [address] Care Team Providers Care Information Systems Specialist Name Role Phone Velasquez Param Augie HORTON Primary Care Provider [phone] Encounter Details Date Type Department Care Team (Latest Contact Info) Description 01/10/2025 Travel Social History Tobacco Use Types Packs/Day Years [...] or relatives? Twice a week 01/02/2025 Attends Catholic Services Not on file 01/02 Do you belong to any clubs o r organizations such as bahai groups, unions, fraternal or athletic groups, or [...] housing, medical care, and heating? Hard 01/02/2025 [facility] - Occupational Stress [...] any time in the past 12 m [facility], were you homeless or living in a detention (including now)? No 01/02/2025 [facility] Utilities Answer Date Recorded In the [...] drink first t edgardo in the morning (EYE-INCOME TAX ADVISOR) to steady your nerves or to get rid of a hangover? 1 01/02/2025 CAGE Questionnaire Score 4 025 Sex and Gender Information Value Date Recorded Sex Assigned at Not on file Legal Sex Male 2:45 PM EDT Gender Identity Not on file Sexual Orientation Not on file documented as of this encounter Functional Status * Question Answer Date of Assessment Author Precautions [facility] risk;[facility] surveillance 01/10/2025 8:00 PM Marvin Jones RN * Calculated C-SSRS Risk Score (Lifetime/Recent) Answer Date of Assessment Author No Risk Indicated 01/10/2025 8:00 PM Marvin Jones RN * Question Answer Date of Assessment Author 1. Wish to be (Past 1 Month) No 025 8:00 PM Marvin Jones RN 2. Non-Specific Active Suici joceline Thoughts (Past 1 Month) No 01/10/2025 8:00 PM EST Marvin Bartlett, DEMETRIA 6. Suicidal Behavior (Lifetime) No 8:00 PM Marvin Jones, RN documented as of this encounter Mental Status * Question Answer Entry Date Author Precautions Fall risk;Environmen adrianna surveillance 01/10/2025 8:00 PM EST Marvin Bartlett RN documented in this encounter Plan of Treatment Upcoming Encounters Date Type Department Care Team (Late st Contact Info) Description 01/23/2025 7:00 AM EST Clinical Support [facility] [address] [place] [address] 01/23/2025 8:40 AM EST Office Visit [facility] [address] [place] [address] Nrskawyfmo-Bzjwo-R urgery-Paul 03/06/2025 11:10 AM EST Appointment [facility] [address] [place] [address] Natalya Valentine MD [address] [place] [address] documented as of this encounter Visit Diagnoses Not on filedocumented in this encounter Additional Health Concerns Assessment Noted Time PHQ-9 Depression Total Score: 13 12/30/2 025 7:10 AM EST A fall risk assessment has been complete d for the patient 12/30/2024 7:10 AM EST A Body Mass Index follow-up plan has been documented for the patient 01/16/2025 4:11 PM EST documented as of this encounter Care Teams Information Systems Specialist Relationship Specialty Start Date End Date Param Eng DO [address] [facility] [address] [place] [address] PCP - General 12/22/24 documented as of this encounter
--- OUTSIDE RECORDS SUMMARY | 2025-01-23 06:57 | XMS_ITS | Encounter Summary ---
Author Organization [facility] Address [address] [place] [address] Care Team Providers Care Automat Watcher Name Role Phone Velasquez Param Augie HORTON Primary Care Provider [phone] Encounter Details Date Type Department Care Team (Latest Contact Info) Description 01/06/2025 Travel Social History Tobacco Use Types Packs/Day [...] or relatives? Twice a week 01/02/2025 Attends Jew Services Not on file 01/02 Do you belong to any clubs o r organizations such as sikhism groups, unions, fraternal or athletic groups, or [...] housing, medical care, and heating? Hard 01/02/2025 [facility] - [...] in a snf (including now)? No 01/02/2025 [facility] Utilities Answer Date Recorded In [...] drink first t edgardo in the morning (EYE-TRENCHING MACHINE OPERATOR) to steady your nerves or [...] of Assessment Author Precautions Environmental surveillance;Fall risk 01/06/2025 8:10 PM Isabel Guallpa RN * Calculated C-SSRS Risk Score (Lifetime/Recent) Answer Date of Assessment Author No Risk Indicated 01/06/2025 8:10 PM Isabel Guallpa RN * Question Answer Date of Assessment Author 1. Wish to be (Past 1 Month) No 01/06/2025 8:10 PM Isabel Guallpa RN 2. Non-Specific Active Suici joceline Thoughts (Past 1 Month) No 01/06/2025 8:10 PM EST Petra Shepherd RN 6. Suicidal Behavior (Lifetime) No 8:10 PM EST Isabel Shepherd RN documented as of this encounter Mental Status * Question Answer Entry Date Author Precautions Environmental surveillance;Fall risk 01/06/2025 8:10 PM EST Isabel Shepherd RN documented in this encounter Plan of Treatment Upcoming Encounters Date Type Department Care Team (Late st Contact Info) Description 01/23/2025 7:00 AM EST Clinical Support [facility] [address] [place] [address] 01/23/2025 8:40 AM EST Office Visit [facility] [address] [place] [address] Bejkudrdsb-Ldnwq-L urgery-Paul 03/06/2025 11:10 AM EST Appointment [facility] [address] [place] [address] Natalya Valentine MD [address] [place] [address] documented as of this encounter Visit Diagnoses Not on filedocumented in this encounter Additional Health Concerns Assessment Noted Time PHQ-9 Depression Total Score: 13 2 025 7:10 AM EST A fall risk assessment has been complete d for the patient 12/30/2024 7:10 AM EST A Body Mass Index follow-up plan has been documented for the patient 01/16/2025 4:11 PM EST documented as of this encounter Care Teams Automat Watcher Relationship Specialty Start Date End Date aPram Eng DO [address] [facility] [address] [place] [address] PCP - General 12/22/24 documented as of this encounter
--- OUTSIDE RECORDS SUMMARY | 2025-01-23 06:57 | XMS_ITS | Encounter Summary ---
Author Organization [facility] Address [address] [place] [address] Care Team Providers Care Ladder Operator Name Role Phone Velasquez Param Augie HORTON Primary Care Provider [phone] Encounter Details Date Type Department Care Team (Latest Contact Info) Description 01/08/2025 Travel Social History Tobacco Use Types Packs/Day [...] any clubs o r organizations such as methodist groups, unions, fraternal or athletic groups, or [...] housing, medical care, and heating? Hard 01/02/2025 [facility] of Occupat ional Health - Occupational [...] were you homeless or living in a group home (including now)? No 01/02/2025 [facility] Utilities Answer Date Recorded In the past [...] drink first t edgardo in the morning (EYE-SENIOR HYDROGEOLOGIST) to steady your nerves or to get [...] Assessment Author Precautions Fall risk;Environmen adrianna surveillance 01/08/2025 8:00 PM Daylin Jones RN * Calculated C-SSRS Risk Score (Lifetime/Recent) Answer Date of Assessment Author No Risk Indicated 01/08/2025 8:00 PM Daylin Jones RN * Question Answer Date of Assessment Author 1. Wish to be (Past 1 Month) No 025 8:00 PM Daylin Jones RN 2. Non-Specific Active Suici joceline Thoughts (Past 1 Month) No 01/08/2025 8:00 PM EST Daylin Mckeon RN 6. Suicidal Behavior (Lifetime) No 8:00 PM EST Daylin Mckeon, DEMETRIA documented as of this encounter Mental Status * Question Answer Entry Date Author Precautions Fall risk;Environmen adrianna surveillance 01/08/2025 8:00 PM EST Daylin Mckeon RN documented in this encounter Plan of Treatment Upcoming Encounters Date Type Department Care Team (Late st Contact Info) Description 01/23/2025 7:00 AM EST Clinical Support [facility] [address] [place] [address] 01/23/2025 8:40 AM EST Office Visit [facility] [address] [place] [address] Gbounfxvmk-Pbyyj-L urgery-Paul 03/06/2025 11:10 AM EST Appointment [facility] [address] [place] [address] Natalya Valentine MD [address] [place] [address] documented as of this encounter Visit Diagnoses [...] documented as of this encounter Care Teams Ladder Operator Relationship Specialty Start Date End Date Param Eng DO [address] [facility] [address] [address] PCP - General 12/22/24 documented as of this encounter
--- OUTSIDE RECORDS SUMMARY | 2025-01-23 06:58 | XMS_ITS | Encounter Summary ---
Author Organization [facility] Address [address] [place] [address] Care Team Providers Care Financial Advisor Trainee Name Role Phone Velasquez Praam Augie HORTON Primary Care Provider Encounter Details Date Type Department Care Team (Latest Contact Info) Description 01/05/2025 Travel Social History Tobacco Use Types Packs/Day [...] or relatives? Twice a week 01/02/2025 Attends Taoist Services Not on file 01/02 Do you belong to any clubs o r organizations such as mosque groups, unions, fraternal or athletic groups, or [...] housing, medical care, and heating? Hard 01/02/2025 [facility] of Occupat ional Health - Occupational Stress [...] any time in the past 12 m [facility], were you homeless or living in a halfway (including now)? No 01/02/2025 [facility] Utilities Answer Date Recorded In the [...] drink first t edgardo in the morning (EYE-SCENARIO WRITER) to steady your nerves or to get [...] of Assessment Author Precautions Environmental surveillance 01/05/2025 8:0 0 PM Sarah Iniguez, RN * Calculated C-SSRS Risk Score (Lifetime/Recent) Answer Date of Assessment Author No Risk Indicated 01/05/2025 8:00 PM Sarah Schwab, RN * Question Answer Date of Assessment Author 1. Wish to be (Past 1 Month) No 025 8:00 PM Sarah Iniguez, RN 2. Non-Specific Active Suici joceline Thoughts (Past 1 Month) No 01/05/2025 8:00 PM EST Ronnell Montanez, RN 6. Suicidal Behavior (Lifetime) No 8:00 PM EST Sarah Montanez, RN documented as of this encounter Mental Status * Question Answer Entry Date Author Precautions Environmental surveillance 01/05/2025 8:0 0 PM EST Sarah Montanez, RN documented in this encounter Plan of Treatment Upcoming Encounters Date Type Department Care Team (Late st Contact Info) Description 01/23/2025 7:00 AM EST Clinical Support [facility] [place] [address] [place] [address] 01/23/2025 8:40 AM EST Office Visit [facility] [place] [address] [place] [address] Ojujpxincw-Eqcdr-H urgery-Paul 03/06/2025 11:10 AM EST Appointment [facility] [address] [place] [address] Natalya Valentine MD [address] [place] [address] documented as of this encounter Visit Diagnoses Not on filedocumented in this encounter Additional Health Concerns Assessment Noted Time PHQ-9 Depression Total Score: 13 12/30/ 025 7:10 AM EST A fall risk assessment has been complete d for the patient 12/30/2024 7:10 AM EST A Body Mass Index follow-up plan has been documented for the patient 01/16/2025 4:11 PM EST documented as of this encounter Care Teams Financial Advisor Trainee Relationship Specialty Start Date End Date Param Eng DO [address] [facility] [address] [address] PCP - General 12/22/24 documented as of this encounter
--- OUTSIDE RECORDS SUMMARY | 2025-01-23 06:58 | XMS_ITS | Encounter Summary ---
Author Organization Healthcare Address [address] [place] [address] Care Team Providers Care Bottom Liquor Attendant Name Role Phone Param Eng DO Primary Care Provider [phone] Anh Harvey LPN Unavailable Unavailable Reason for Visit * Auth/Cert (Routine) Specialty Diagnoses / Procedures Referred By Contac t Referred To Contact Diagnoses Decompensation of cirrhosis of liver (CMS/HCC) Satnam eBckford MD [address] [address] Phone: tel: fax: P[facility] A Inpatient [address] [place] [address] Phone: tel: Referral ID Status Reason Start Date Expiration Date Visits Re quested Visits Authorized [id number] 1 1 Encounter Details Date Type Department Care Team (Late st Contact Info) Description 01/05/2025 Lab Requisition [facility] Blood Bank [address] [place] [address] Luis Steel MD [address] [place] [address] General medical exam Social History Tobacco Use Types Packs/Day Years [...] or relatives? Twice a week 01/02/2025 Attends Congregational Services Not on file 01/02 Do you belong to any clubs o r organizations such as caodaism groups, unions, fraternal or athletic groups, or [...] housing, medical care, and heating? Hard 01/02/2025 [facility] [place] of Occupat ional Health - Occupational Stress [...] any time in the past 12 m [facility], were you homeless or living in a residential (including now)? No 01/02/2025 [facility] Utilities Answer Date Recorded In the past 12 months has th e [employer], gas, oil, or water company threatened to [...] drink first t edgardo in the morning (EYE-MECHANIC'S ASSISTANT) to steady your nerves or to get rid of a hangover? 1 01/02/2025 CAGE Questionnaire Score 4 025 Sex and Gender Information Value Date Recorded Sex Assigned at Not on file Legal Sex Male 2:45 PM EDT Gender Identity Not on file Sexual Orientation Not on file documented as of this encounter Functional Status * Question Answer Date of Assessment Author Amara Fall risk;[facility] surveillance 01/08/2025 8:00 PM Daylin Jones RN * Calculated C-SSRS Risk Score (Lifetime/Recent) Answer Date of Assessment Author No Risk Indicated 01/08/2025 8:00 PM Daylin Jones RN * Question Answer Date of Assessment Author 1. Wish to be (Past 1 Month) No 025 8:00 PM Daylin Jones RN 2. Non-Specific Active Suici joceline Thoughts (Past 1 Month) No 01/08/2025 8:00 PM Daylin Jones RN 6. Suicidal Behavior (Lifetime) No 8:00 PM Daylin Jones RN documented as of this encounter Mental Status * Question Answer Entry Date Author Amara Fall risk;[facility] surveillance 01/08/2025 8:00 PM Daylin Jones RN documented in this encounter Plan of Treatment Upcoming Encounters Date Type Department Care Team (Late st Contact Info) Description 01/23/2025 7:00 AM EST Clinical Support [facility] [place] [address] [place] [address] 01/23/2025 8:40 AM EST Office Visit [facility] [place] [address] [place] [address] Uwtkghjakh-Bgnlz-T urgery-Paul 03/06/2025 11:10 AM EST Appointment [facility] [address] [place] [address] Natalya Valentine MD [address] [place] [address] documented as of this encounter Procedures Procedure Name Priority Date/Time Associated Diagnosis Comments BILL ONLY ABO/RH TYPE Routine 01/02/2025 9:31 AM EST General medical exam documented in this encounter Results * Shine Only ABO/Rh Type (01/02/2025 9:31 AM EST) Blood Bank Lab Only (Blood Bank Lab Only) 01/02/2025 9:31 AM EST 01/05/2025 7:46 AM EST us Luis Steel MD LAB BLOOD BANK TEST ORDERAB LES Final Result Performing Organization Address City/State/[facility] Co de Phone Number BLOOD BANK [address] [place] [address], documented in this encounter Visit Diagnoses Diagnosis General medical exam Unspecified general medical examination documented in this encounter Additional Health Concerns Assessment Noted Time PHQ-9 Depression Total Score: 13 025 7:10 AM EST A fall risk assessment has been complete d for the patient 12/30/2024 7:10 AM EST A Body Mass Index follow-up plan has been documented for the patient 01/16/2025 4:11 PM EST documented as of this encounter Care Teams Bottom Liquor Attendant Relationship Specialty Start Date End Date Param Eng DO [address] [address] PCP - General 12/22/24 Anh Harvey LPN [employer] [address] None TCM Nurse 01/19/25 01/19/25 documented as of this encounter
--- OUTSIDE RECORDS SUMMARY | 2025-01-23 06:58 | XMS_ITS | Encounter Summary ---
Author Organization [facility] Address [address] [place] [address] Care Team Providers Care Ring Maker Name Role Phone VelasquezParam tamayo Augie HORTON Primary Care Provider [phone] Anh Harvey LPN Unavailable Unavailable Encounter Details Date Type Department Care Team (Late st Contact Info) Description 01/05/2025 Lab Requisition [facility] H Lab [address] [place] [address] Diego Gray MD [address] [facility] [address] [place] [address] Encounter for general adult medical examination without abnormal findings Social History Tobacco Use Types Packs/Day Years [...] or relatives? Twice a week 01/02/2025 Attends Christianity Services Not on file 01/02 Do you belong to any clubs o r organizations such as jew groups, unions, fraternal or athletic groups, or [...] housing, medical care, and heating? Hard 01/02/2025 [facility] of Occupat ional Health - Occupational [...] any time in the past 12 m [facility], were you homeless or living in a senior living (including now)? No 01/02/[address] [facility] Utilities Answer Date Recorded In the [...] drink first t edgardo in the morning (EYE-HOME HEALTH CLINICAL LIAISON) to steady your nerves or to get [...] 01/08/2025 8:00 PM EST Daylin Mckeon RN * Calculated C-SSRS Risk Score (Lifetime/Recent) Answer Date of Assessment Author No Risk Indicated 01/08/2025 8:00 PM EST Daylin Mckeon RN * Question Answer Date of Assessment Author 1. Wish to be (Past 1 Month) No 025 8:00 PM EST Daylin Mckeon, DEMETRIA 2. Non-Specific Active Suici joceline Thoughts (Past 1 Month) No 01/08/2025 8:00 PM EST Daylin Mckeon RN 6. Suicidal Behavior (Lifetime) No 8:00 PM EST Daylin Mckeon RN documented as of this encounter Mental Status * Question Answer Entry Date Author Precautions Fall risk;[facility] surveillance 01/08/2025 8:00 PM EST Daylin Mckeon RN documented in this encounter Plan of Treatment Upcoming Encounters Date Type Department Care Team (Late st Contact Info) Description 01/23/2025 7:00 AM EST Clinical Support [facility] [address] [place] [address] 01/23/2025 8:40 AM EST Office Visit [facility] [place] [address] [place] [address] Jdnzerxbvi-Bhevc-A urgery-Paul 03/06/2025 11:10 AM EST Appointment [facility] End[facility] [address] [place] [address] Natalya Valentine MD [address] [facility] [address] [place] [address] documented as of this encounter Procedures Procedure Name Priority Date/Time Associated Diagnosis Comments MULTI DRUG RESISTANCE TEST Routine 01/05/2025 6:40 PM EST Encounter for general adult medical examination without abnormal findings documented in this encounter Results * Multi Drug Resistance Test (01/05/2025 6:40 PM EST) Culture No growth at day 1 01/06/2025 8:52 PM EST [facility] Swab (Nares and Lauren Rectal) 01/05/2025 6:40 PM EST 01/05/2025 6:43 PM EST Narrative [facility] - 01/06/2025 8:52 PM EST This test was developed and its performance characteristics determined by the [facility]. Although the media is FDA-approved, it is not FDA-approved for all specimen types submitted. The FDA has determined that such clearance or approval is not necessary. This test is used for surveillance purposes. It should not be regarded as investigational or for research. The [facility] is certified under the Clinical Laboratory Improvement Amendments of 1988 (CLIA-88) as qualified to perform high complexity clinical laboratory testing. Diego Gray MD LAB MICROBIOLOGY - GEN ERAL ORDERABLES Final Result [facility] [address] [place] [address] documented in this encounter Visit Diagnoses Diagnosis Encounter for general adult medical examination without abnormal findings documented in this encounter Additional Health Concerns Assessment Noted Time PHQ-9 Depression Total Score: 13 025 7:10 AM EST A fall risk assessment has been complete d for the patient 12/30/2024 7:10 AM EST A Body Mass Index follow-up plan has been documented for the patient 01/16/2025 4:11 PM EST documented as of this encounter Care Teams Ring Maker Relationship Specialty Start Date End Date Param Eng DO [address] [place] [address] [address] [place] [address] PCP - General 12/22/24 Anh Harvey LPN VALUE-BASED [place] [address] None TCM Nurse 01/19/25 01/19/25 documented as of this encounter
--- OUTSIDE RECORDS SUMMARY | 2025-01-23 06:58 | XMS_ITS | Encounter Summary ---
Author Organization [facility] Address [address] [place] [address] Care Team Providers Care Tennis Camp Instructor Name Role Phone Velasquez Param Augie HORTON Primary Care Provider [phone] Encounter Details Date Type Department Care Team (Latest Contact Info) Description 01/04/2025 Travel Social History Tobacco Use Types Packs/Day [...] or relatives? Twice a week 01/02/2025 Attends Bahai Services Not on file 01/02 Do you belong to any clubs o r organizations such as islam groups, unions, fraternal or athletic groups, or [...] any time in the past 12 m [facility], were you homeless or living in a senior care (including now)? No 01/02/2025 [facility] Utilities Answer Date Recorded In the [...] drink first t edgardo in the morning (EYE-EMERGENCY PHYSICIAN) to steady your nerves or to get [...] Date of Assessment Author Precautions Environmental surveillance 01/04/2025 8:0 0 PM Shaka Gillespie RN * Calculated C-SSRS Risk Score (Lifetime/Recent) Answer Date of Assessment Author No Risk Indicated 01/04/2025 8:00 PM Shaka Arshad RN * Question Answer Date of Assessment Author 1. Wish to be (Past 1 Month) No 01/04/2025 8:00 PM Melvina Gillespie RN 2. Non-Specific Active Suicidal Thoughts (Past 1 Month) No 01/04/2025 8:00 PM EST Melvina Burciaga RN 6. Suicidal Behavior (Lifetime) No 01/04/2025 8:00 PM EST Melvina Burciaga, RN documented as of this encounter Mental Status * Question Answer Entry Date Author Precautions Environmental surveillance 01/04/2025 8:0 0 PM EST Shaka Burciaga RN documented in this encounter Plan of Treatment Upcoming Encounters Date Type Department Care Team (Late st Contact Info) Description 01/23/2025 7:00 AM EST Clinical Support [facility] [address] [place] [address] 01/23/2025 8:40 AM EST Office Visit [facility] [address] [place] [address] Bcadjjgazz-Gkcsc-N urgery-Paul 03/06/2025 11:10 AM EST Appointment [facility] Endoscopy [address] [place] [address] Natalya Valentine MD [address] [place] [address] documented as of this encounter Visit Diagnoses [...] documented as of this encounter Care Teams Tennis Camp Instructor Relationship Specialty Start Date End Date Param Eng DO [facility] [facility] [address] [address] PCP - General 12/22/24 documented as of this encounter
--- OUTSIDE RECORDS SUMMARY | 2025-01-23 07:02 | XMS_ITS | Encounter Summary ---
Author Organization [facility] Address [address] [place] [address] Care Team Providers Care Sales Assistant Displays Name Role Phone Pcp, No Primary Care Provider Unavailabl e Encounter Details Date Type Department Care Team (Latest Contact Info) Description 12/17/2024 Travel Social History Tobacco Use Types Packs/Day [...] any time in the past 12 m [facility], were you homeless or living in a senior living (including now)? No 12/18/[address] [facility] Utilities Answer Date Recorded In the [...] Date of Assessment Author Precautions Environmental surveillance 12/17/2024 11: 00 PM Laura Mac * Calculated C-SSRS Risk Score (Lifetime/Recent) Answer Date of Assessment Author No Risk Indicated 12/17/2024 5:00 PM Patricia Dumont RN * Question Answer Date of Assessment Author 1. Wish to be (Past 1 Month) No 025 5:00 PM Patricia Johns, DEMETRIA 2. Non-Specific Active Suici joceline Thoughts (Past 1 Month) No 12/17/2024 5:00 PM Asha Johns RN 6. Suicidal Behavior (Lifetime) No 5:00 PM Patricia Johns, DEMETRIA documented as of this encounter Mental Status * Question Answer Entry Date Author Precautions Environmental surveillance 12/17/2024 11: 00 PM Angely Mace documented in this encounter Plan of Treatment Upcoming Encounters Date Type Department Care Team (Late st Contact Info) Description 01/23/2025 8:40 AM EST Office Visit [facility] [address] [place] [address] Oaqlhndqod-Uxgto-Vno rosemary-Paul 03/06/2025 11:10 AM EST Appointment [facility] End[facility] [address] [place] [address] Natalya Valentine MD [address] [place] [address] documented as of this encounter Visit Diagnoses Not on filedocumented in this encounter Additional Health Concerns Infection [...] documented as of this encounter Care Teams Sales Assistant Displays Relationship Specialty Start Date End Date Pcp, [place] [address] PCP - General Family Medicine 10/20/23 12/21/24 documented as of this encounter
--- OUTSIDE RECORDS SUMMARY | 2025-01-23 07:02 | XMS_ITS | Encounter Summary ---
Author Organization [facility] Address [address] [place] [address] Care Team Providers Care Biopsychologist Name Role Phone Pcp, No Primary Care Provider Unavailabl e Encounter Details Date Type Department Care Team (Latest Contact Info) Description 12/08/2024 Travel Social History Tobacco Use Types Packs/Day [...] were you homeless or living in a usp (including now)? No 10/20/2024 [facility] Utilities Answer Date Recorded In the [...] as of this encounter Functional Status * Calculated C-SSRS Risk Score (Lifetime/Recent) Answer Date of Assessment Author No Risk Indicated 12/08/2024 10:23 AM EDT Ivania Powell LCSW * Question Answer Date of Assessment Author 1. Wish to be (Past 1 Month) No 12/08/2024 10:23 AM EDT Ivania Powell LCSW 2. Non-Specific Active Suici joceline Thoughts (Past 1 Month) No 12/08/2024 10:23 AM EDT Catrachito Powell LCSW 6. Suicidal Behavior (Lifetime) No 10:23 AM EDT Ivania Powell LCSW documented as of this encounter Plan of Treatment Upcoming Encounters Date Type Department Care Team (Late st Contact Info) Description 01/23/2025 8:40 AM EST Office Visit [facility] [address] [place] [address] Aliakqzxsr-Nooyu-Hmk rosemary-Paul 03/06/2025 11:10 AM EST Appointment [facility] Endoscopy [address] [place] [address] Natalya Valentine MD [address] [place] [address] documented as of this encounter [...] documented as of this encounter Care Teams Biopsychologist Relationship Specialty Start Date End Date Pcp, [place] [address] PCP - General Family Medicine 10/20/23 12/21/24 documented as of this encounter
--- OUTSIDE RECORDS SUMMARY | 2025-01-23 07:02 | XMS_ITS | Encounter Summary ---
Author Organization Healthcare Address [address] [place] [address] Care Team Providers Care Excavating Supervisor Name Role Phone Param Eng DO Primary Care Provider [phone] Encounter Details Date Type Department Care Team (Late st Contact Info) Description 12/30/2024 Telephone [facility] [address] [facility] [address] [place] [address] Ping Daley, RN [facility] [address] [place] [address] Social History Tobacco Use Types Packs/Day Years [...] time in the past [address] [facility], were you homeless or living in a fci (including now)? No 12/18/2024 [facility] Utilities Answer Date Recorded In [...] as of this encounter Functional Status * Over the [...] as of this encounter Miscellaneous Notes * Telephone Encounter - Ping Daley RN - 12/30/2024 10:46 AM EST Called pt to discuss listing status. Pt verbalized understanding. Psych appts have been canceled x 2. Pt awaiting rescheduling. Denies further questions at this time. documented in this encounter Plan of Treatment Upcoming Encounters Date Type Department Care Team (Late st Contact Info) Description 01/23/2025 7:00 AM EST Clinical Support [place] [facility] [address] [place] [address] 01/23/2025 8:40 AM EST Office Visit [facility] [address] [place] [address] Telpvblqzk-Zidbo-I urgery-Paul 03/06/2025 11:10 AM EST Appointment [facility] Endoscopy [address] [place] [address] Natalya Valentine MD [address] [place] [address] documented as of this encounter Visit Diagnoses [...] documented as of this encounter Care Teams Excavating Supervisor Relationship Specialty Start Date End Date Param Eng DO [facility] [address] [address] PCP - General 12/22/24 documented as of this encounter
--- OUTSIDE RECORDS SUMMARY | 2025-01-23 07:02 | XMS_ITS | Encounter Summary ---
Author Organization [facility] Address [address] [place] [address] Care Team Providers Care Shipping And Receiving Clerk Name Role Phone Velasquez Param Augie HORTON Primary Care Provider [phone] Encounter Details Date Type Department Care Team (Latest Contact Info) Description 01/02/2025 Travel Social History Tobacco Use Types Packs/Day [...] any clubs o r organizations such as protestant groups, unions, fraternal or athletic groups, or [...] housing, medical care, and heating? Hard 01/02/2025 [facility] Occupat ional Health - Occupational Stress [...] any time in the past 12 m [facility], were you homeless or living in a jail (including now)? No 01/02/2025 [facility] Utilities [...] drink first t edgardo in the morning (EYE-PROFESSOR OF MARKETING) to steady your nerves or to get [...] Assessment Author Precautions Fall risk;Environmen adrianna surveillance 01/02/2025 8:00 PM Allison Mix RN * AUDIT-C Score Answer Date of Assessment Author 0 01/02/2025 12:41 PM EST DearClarissa RN * Question Answer Date of Assessment Author Q1: How often do you have a drink containing alcohol? Never 01/02/2025 12:41 PM EST DearMariela RN Q2: How many drinks containing alcohol do you have on a typical day when you are drinking? Patient does not drink 01/02/2025 12:41 PM EST DearMariela RN Q3: How often do you have six or more drinks on one occasion? Never 01/02/2025 12:41 PM EST DearMariela RN * Question Answer Date of Assessment Author Precautions Fall risk;[facility] surveillance 01/02/2025 8:00 PM Allison Mix RN * Calculated C-SSRS Risk Score (Lifetime/Recent) Answer Date of Assessment Author No Risk Indicated 01/02/2025 8:00 PM Allison Mix RN * Question Answer Date of Assessment Author 1. Wish to be (Past 1 Month) No 025 8:00 PM Allison Mix RN 2. Non-Specific Active Suici joceline Thoughts (Past 1 Month) No 01/02/2025 8:00 PM Garret Mix RN 6. Suicidal Behavior (Lifetime) No 8:00 PM Allison Mix RN documented as of this encounter Mental Status * Question Answer Entry Date Author Precautions Fall risk;[facility] surveillance 01/02/2025 8:00 PM Allison Mix RN documented in this encounter Plan of Treatment Upcoming Encounters Date Type Department Care Team (Late st Contact Info) Description 01/23/2025 7:00 AM EST Clinical Support [facility] Transplant Center [address] [place] [address] 01/23/2025 8:40 AM EST Office Visit [facility] Transplant Center [address] [place] [address] Cmfwtinfjy-Rgccl-U urgery-Paul 03/06/2025 11:10 AM EST Appointment [facility] [address] [place] [address] Natalya Valentine MD [address] [place] [address] documented as of this encounter Visit Diagnoses [...] documented as of this encounter Care Teams Shipping And Receiving Clerk Relationship Specialty Start Date End Date Param Eng DO [address] [place] [address] PCP - General 12/22/24 documented as of this encounter
--- OUTSIDE RECORDS SUMMARY | 2025-01-23 07:02 | XMS_ITS | Encounter Summary ---
Author Organization [facility] Address [address] [place] [address] Care Team Providers Care Esl Instructional Assistant Name Role Phone Param Eng Augie HORTON Primary Care Provider [phone] Reason for Visit * Reason Onset Date Comments Prior-authorization/insurance Verification 12/22 Encounter Details Date Type Department Care Team (Late st Contact Info) Description 12/22/2024 Telephone [facility] Medicine Virtual Dept. [address] [place] [address] Leroy Aponte MD [address] [place] [address] Prior-authorization/ins urance Verification Social History Tobacco Use Types Packs/Day Years [...] time in the past 12 m [facility], were you homeless or living in a custodial (including now)? No 12/18/2024 [facility] Utilities Answer Date Recorded In [...] on file documented as of this encounter Plan of Treatment Upcoming Encounters Date Type Department Care Team (Late st Contact Info) Description 01/23/2025 7:00 AM EST Clinical Support [facility] Transplant [place] [address] [place] [address] 01/23/2025 8:40 AM EST Office Visit [facility] Transplant [place] [address] [place] [address] Mydqaeiajm-Veflk-D urgery-Paul 03/06/2025 11:10 AM EST Appointment [facility] [address] [place] [address] Natalya Valentine MD [address] [place] [address] documented as of this encounter [...] documented as of this encounter Care Teams Esl Instructional Assistant Relationship Specialty Start Date End Date Param Eng DO [address] [place] [address] PCP - General 12/22/24 documented as of this encounter
--- OUTSIDE RECORDS SUMMARY | 2025-01-23 07:02 | XMS_ITS | Encounter Summary ---
Author Organization [facility] Address [address] [place] [address] Care Team Providers Care Forklift Wheel Loader Name Role Phone Pcp, No Primary Care Provider Unavailabl e Encounter Details Date Type Department Care Team (Latest Contact Info) Description 12/10/2024 Travel Social History Tobacco Use Types Packs/Day [...] living in a fpc (including now)? No 10/20/2024 [facility] Utilities Answer Date Recorded In [...] Description 01/23/2025 8:40 AM EST [facility] [address] [place] [address] Olbxejgfni-Jxjzt-Pki rosemary-Paul 03/06/2025 11:10 AM EST Appointment [facility] [address] [place] [address] Natalya Valentine MD [address] [place] [address] documented as of this encounter Visit Diagnoses [...] documented as of this encounter Care Teams Forklift Wheel Loader Relationship Specialty Start Date End Date Pcp, Smiley [address] [place] [address] PCP - General Family Medicine 10/20/23 12/21/24 documented as of this encounter
--- OUTSIDE RECORDS SUMMARY | 2025-01-23 07:02 | XMS_ITS | Encounter Summary ---
Author Organization [facility] Address [address] [place] [address] Care Team Providers Care Attendant Coin Operated Laundry Name Role Phone Bebo Engew Augie HORTON Primary Care Provider [phone] Encounter Details Date Type Department Care Team (Latest Contact Info) Description 12/24/2024 Travel Social History Tobacco Use Types Packs/Day [...] living in a detention (including now)? No 12/18/2024 [facility] Utilities Answer Date Recorded In the [...] Description 01/23/2025 7:00 AM EST Clinical Support [facility] Transplant Center [address] [place] [address] 01/23/2025 8:40 AM EST Office Visit [facility] Transplant [place] [address] [place] [address] Othvvyvlyj-Tbtzi-D urgery-Paul 03/06/2025 11:10 AM EST Appointment [facility] [address] [place] [address] Natalya Valentine MD [address] [facility] [address] [place] [address] documented as of this encounter Visit Diagnoses [...] documented as of this encounter Care Teams Attendant Coin Operated Laundry Relationship Specialty Start Date End Date Param Eng DO [address] [place] [address] PCP - General 12/22/24 documented as of this encounter
--- OUTSIDE RECORDS SUMMARY | 2025-01-23 07:02 | XMS_ITS | Encounter Summary ---
Author Organization [facility] Address [address] [place] [address] Care Team Providers Care Ironworker Foreman Name Role Phone Pcp, No Primary Care Provider Unavailabl e Encounter Details Date Type Department Care Team (Late st Contact Info) Description 12/12/2024 Telephone [facility] Transplant [facility] [address] [place] [address] Ping Daley, RN HOSPITAL LIVER [id number] [address] [place] [address] Social History Tobacco Use Types Packs/Day Years [...] time in the past 12 m [facility], were you homeless or living in a long-term (including now)? No 10/20/2024 [facility] Utilities Answer Date Recorded [...] on file documented as of this encounter Miscellaneous Notes * Telephone Encounter - Ping Daley, RN - 12/12/2024 1:02 PM EDT Hgb 6.7 - contacted pt to send to ED. No answer - left voicemail on pt cell phone to report to ED documented in this encounter Plan of Treatment Upcoming Encounters Date Type Department Care Team (Late st Contact Info) Description 01/23/2025 8:40 AM EST Office Visit [facility] [address] [place] [address] Fbyjezwcys-Pongw-Etp rosemary-Paul 03/06/2025 11:10 AM EST Appointment [facility] [address] [place] [address] Natalya Valentine MD [address] [place] [address] documented as of this encounter [...] documented as of this encounter Care Teams Ironworker Foreman Relationship Specialty Start Date End Date Pcp, Smiley [address] [place] [address] PCP - General Family Medicine 10/20/23 12/21/24 documented as of this encounter
--- OUTSIDE RECORDS SUMMARY | 2025-01-23 07:02 | XMS_ITS | Encounter Summary ---
Author Organization [facility] Address [address] [place] [address] Care Team Providers Care Mule Packer Name Role Phone Bebo Engew Augie HORTON Primary Care Provider [phone] Encounter Details Date Type Department Care Team (Latest Contact Info) Description 12/30/2024 Travel Social History Tobacco Use Types Packs/Day [...] No 12/18/2024 Housing Stability Vital Sign Answer Vigrilio e Recorded In the last 12 months, was t here a time when you were not able to pay the mortgage or rent on time? No 12/18/2024 Number of Times Moved in the Last Year Not on fi le 12/18/2024 At any time in the past 12 m [facility], were you homeless or living in a alf (including now)? No 12/18/2024 [facility] Utilities Answer Date Recorded In the past 12 months has th e [employer], gas, oil, or water company threatened to [...] things Several days 12/30/2024 7:10 AM Carlie Brandno RN Feeling down, depressed, or hopeless Several [...] i, RN documented as of this encounter Plan of Treatment Upcoming Encounters Date Type Department Care Team (Late st Contact Info) Description 01/23/2025 8:40 AM EST Office Visit [facility] [address] [place] [address] Luuviikpot-Uiqly-Pnj rosemary-Paul 03/06/2025 11:10 AM EST Appointment [facility] [address] [place] [address] Natalya Valentine MD [address] [place] [address] documented as of this encounter [...] documented as of this encounter Care Teams Mule Packer Relationship Specialty Start Date End Date Param Eng DO [address] [place] [address] PCP - General 12/22/24 documented as of this encounter
--- OUTSIDE RECORDS SUMMARY | 2025-01-23 07:02 | XMS_ITS | Encounter Summary ---
Author Organization [facility] Address [address] [place] [address] Care Team Providers Care Commercial Loan Coordinator Name Role Phone Velasquez Param Augie HORTON Primary Care Provider [phone] Encounter Details Date Type Department Care Team (Latest Contact Info) Description 01/03/2025 Travel Social History Tobacco Use Types Packs/Day [...] or relatives? Twice a week 01/02/2025 Attends [employer] Services Not on file 01/02 Do you [...] housing, medical care, and heating? Hard 01/02/2025 [facility] of Occupat ional Health - [...] a long term (including now)? No 01/02/2025 [facility] Utilities Answer Date Recorded In the [...] drink first t edgardo in the morning (EYE-ASSISTANT BOILER OPERATOR) to steady your nerves or to get rid of a hangover? 1 01/02/2025 CAGE Questionnaire Score 4 025 Sex and Gender Information Value Date Recorded Sex Assigned at Not on file Legal Sex Male 2:45 PM EDT Gender Identity Not on file Sexual Orientation Not on file documented as of this encounter Functional Status documented as of this encounter Mental Status * Question Answer Entry Date Author Precautions Environmental surveillance 01/03/2025 8:[address], DEMETRIA * Question Answer Entry Date Author Backup Resp Rate (Set) 16 01/03/2025 3:01 PM Blaine Sinha documented in this encounter Plan of Treatment Upcoming Encounters Date Type Department Care Team (Late st Contact Info) Description 01/23/2025 7:00 AM EST Clinical Support [facility] Transplant Center [address] [place] [address] 01/23/2025 8:40 AM EST Office Visit [facility] [address] [place] [address] Hcsmvpmepv-Qdwqe-E urgery-Paul 03/06/2025 11:10 AM EST Appointment [facility] [address] [place] [address] Natalya Valentine MD [address] [place] [address] documented as of this encounter Visit Diagnoses [...] documented as of this encounter Care Teams Commercial Loan Coordinator Relationship Specialty Start Date End Date Param Eng DO [address] [place] [address] PCP - General 12/22/24 documented as of this encounter
--- OUTSIDE RECORDS SUMMARY | 2025-01-23 07:02 | XMS_ITS | Encounter Summary ---
Author Organization [facility] Address [address] [place] [address] Care Team Providers Care Semiconductor Equipment Technician Name Role Phone Pcp, No Primary Care Provider Unavailabl e Encounter Details Date Type Department Care Team (Latest Contact Info) Description 12/18/2024 Travel Social History Tobacco Use Types Packs/Day [...] any time in the past 12 m [facility], were you homeless or living in a correction (including now)? No 12/18/2024 [facility] Utilities Answer Date Recorded In [...] * Question Answer Date of Assessment Author [place] Environmental surveillance 12/18/2024 11: 00 PM Laura Mac * Calculated C-SSRS Risk Score (Lifetime/Recent) Answer Date of Assessment Author No Risk Indicated 12/18/2024 8:00 PM Janiya Bergeron RN * Question Answer Date of Assessment Author 1. Wish to be (Past 1 Month) No 12/18/2024 8:00 PM Geraldine Bergeron RN 2. Non-Specific Active Suicidal Thoughts (Past 1 Month) No 12/18/2024 8:00 PM Geraldine Bergeron RN 6. Suicidal Behavior (Lifetime) No 12/18/2024 8:00 PM Geraldine Bergeron RN documented as of this encounter Mental Status * Question Answer Entry Date Author [place] Environmental surveillance 12/18/2024 11: 00 PM Laura Mac documented in this encounter Plan of Treatment Upcoming Encounters Date Type Department Care Team (Late st Contact Info) Description 01/23/2025 8:40 AM EST Office Visit [place] [facility] [address] [place] [address] Aujxmzbkgi-Hrndc-Vuh rosemary-Paul 03/06/2025 11:10 AM EST Appointment [facility] [address] [place] [address] Natalya Valentine MD [address] [place] [address] documented as of this encounter Visit Diagnoses [...] documented as of this encounter Care Teams Semiconductor Equipment Technician Relationship Specialty Start Date End Date Pcp, Smiley [address] [place] [address] PCP - General Family Medicine 10/20/23 12/21/24 documented as of this encounter
--- OUTSIDE RECORDS SUMMARY | 2025-01-23 07:02 | XMS_ITS ---
Author Organization Unknown ENCOUNTERS Encounter Performer Location Date Diagnosis Diagnosis Status Pre Admit [address] [place] [place] [address] [id number] Emergency [address] [place] [address] [id number] V[facility] *Note: Encounters from your own facility or health system may be excluded. Allergies, Adverse Reactions, Alerts Allergen Type Severity Identification Date amoxicillin drug allergy [id number] Medications Name Date Quantity Days Supplied GPI Number
--- OUTSIDE RECORDS SUMMARY | 2025-01-23 07:02 | XMS_ITS | Encounter Summary ---
Author Organization [facility] Address [address] [place] [address] Care Team Providers Care Welcome Desk Agent Name Role Phone Param Eng DO Primary Care Provider [phone] Encounter Details Date Type Department Care Team (Late st Contact Info) Description 01/01/2025 Telephone [facility] [address] [facility] [address] [place] [address] Mattie Hayden Social History Tobacco Use Types Packs/Day Years [...] or relatives? Twice a week 01/02/2025 Attends Jain Services Not on file 01/02 Do you [...] medical care, and heating? Hard 01/02/2025 [facility] of Occupat ional Health - Occupational Stress [...] time in the past 12 m [facility], were you homeless or living in a custodial (including now)? No 01/02/2025 [facility] Utilities Answer Date Recorded In the [...] drink first t edgardo in the morning (EYE-GREEN MEAT PACKER) to steady your nerves or to get rid of a hangover? 1 01/02/2025 CAGE Questionnaire Score 4 025 Sex and Gender Information Value Date Recorded Sex Assigned at Not on file Legal Sex Male 2:45 PM EDT Gender Identity Not on file Sexual Orientation Not on file documented as of this encounter Miscellaneous Notes * Telephone Encounter - Mattie Hayden - 01/01/2025 3:43 PM EST Liver was accepted for Cesar Tay by Dr. Beckford The patient was notified and directed to come to the hospital. Organ offer was explained in detail to patient who verbalized understanding andhas accepted with no further concerns. Patient was made aware donor is DCD. The patient has been screened and provided the following answers: Recent hospitalizations: yes - 12/17/24 Fever/chills/cough: No Positive for covid in last 90 days: No Blood thinners: No Recent blood transfusions: Yes- 3 weeks ago 12/17/24 during hospital admission Current infections: No Open wounds: No Sensitizations in the last 90 days (miscarriages, immunizations): Yes- PRBC during admission 12/17/2024 and Hep B vaccine 11/25/24 Insurance changes: No The patient's caregiver will accompany the patient and will be available to the medical/surgical team as needed for updates/progress during surgery. The patient was advised not to eat or drink anything as direct by staff once admitted. The transplant surgery notification list (Admitting, resident director sanitation bureau, lab, blood bank, MELANI, ICU, OR, IMP lab) and Donor information verified in UNOS and notification email sent to the transplant team will be completed to follow this conversation. documented in this encounter Plan of Treatment Upcoming Encounters Date Type Department Care Team (Late st Contact Info) Description 01/23/2025 7:00 AM EST Clinical Support [facility] Transplant [place] [address] [place] [address] 01/23/2025 8:40 AM EST Office Visit [facility] Transplant [place] [address] [place] [address] Bndgchmkay-Nfxnk-X urgery-Paul 03/06/2025 11:10 AM EST Appointment [facility] [address] [place] [address] Natalya Valentine MD [address] [place] [address] documented as of this encounter Visit Diagnoses [...] documented as of this encounter Care Teams Welcome Desk Agent Relationship Specialty Start Date End Date Param Eng DO [address] [place] [address] PCP - General 12/22/24 documented as of this encounter
--- OUTSIDE RECORDS SUMMARY | 2025-01-23 07:02 | XMS_ITS | Encounter Summary ---
Author Organization [facility] Address [address] [place] [address] Care Team Providers Care Head Field Hockey Coach Name Role Phone Pcp, No Primary Care Provider Unavailabl e Param Eng DO Primary Care Provider [phone] Anh Harvey LPN Unavailable Unavailable Encounter Details Date Type Department Care Team (Late st Contact Info) Description 12/19/2024 Results Follow-Up [facility] Transplant Center [address] [facility] [address] [place] [address] Ping Daley, RN [facility] JMS-PZ-[address]EMLZ [address] [place] [address] Social History Tobacco Use Types Packs/Day Years [...] any time in the past 12 m [facility], were you homeless or living in a retirement (including now)? No 12/18/2024 [facility] Utilities Answer Date Recorded In the past [...] of Assessment Author Precautions Environmental surveillance;Fall risk 12/20/2024 8:00 AM Radha Block LPN * Calculated C-SSRS Risk Score (Lifetime/Recent) Answer Date of Assessment Author No Risk Indicated 12/19/2024 8:00 AM Yi Membreno, DEMETRIA * Question Answer Date of Assessment Author 1. Wish to be (Past 1 Month) No 12/19/2024 8:00 AM Chris Jensen RN 2. Non-Specific Active Suici joceline Thoughts (Past 1 Month) No 12/19/2024 8:00 AM EST Pablito Recinos, RN 6. Suicidal Behavior (Lifetime) No 8:00 AM EST Yi Recinos, RN documented as of this encounter Mental Status * Question Answer Entry Date Author Precautions Environmental surveillance;Fall risk 12/20/2024 8:00 AM EST Radha Da Silva LPN documented in this encounter Miscellaneous Notes * Result Encounter Note - Prieto Dillon MD - 12/26/2024 9:39 AM EST Labs reviewed. Hgb improved. Bilirubin slightly worsened from recent labs but overall stable. * Result Encounter Note - Ping Daley RN - 12/25/2024 1:55 PM EST Labs for review * Result Encounter Note - Prieto Dillon MD - 12/24/2024 12:02 PM EST Your blood counts are all stable. * Result Encounter Note - Ping Daley RN - 12/19/2024 11:55 AM EST Colonoscopy results documented in this encounter Plan of Treatment Upcoming Encounters Date Type Department Care Team (Late st Contact Info) Description 01/23/2025 8:40 AM EST Office Visit [facility] Transplant Center [address] [place] [address] Ikhghhsiot-Ixpaw-Ier rosemary-Paul 03/06/2025 11:10 AM EST Appointment [facility] Endoscopy [address] [place] [address] Natalya Valentine MD [address] [place] [address] documented as of this encounter Visit Diagnoses Not on filedocumented in this encounter Additional Health Concerns Infection Onset Date Last Indicated Resolved Time COVID-19 Rule-Out 01/02/2025 01/02/2025 01/02/2025 11:10 AM EST Assessment Noted Time PHQ-9 Depression Total Score: 11/26/19 11:02 AM EDT A fall risk assessment has been complete d for the patient 12/17/2024 7:07 AM EST A Body Mass Index follow-up plan has been documented for the patient 12/20/2024 1:16 PM EST documented as of this encounter Care Teams Head Field Hockey Coach Relationship Specialty Start Date End Date Pcp, No [address] [place] [address] PCP - General Family Medicine 10/20/23 12/21/24 Param Eng, [facility] [address] [place] [address] PCP - General 12/22/24 Anh Harvey, [employer] VALUE-[employer]ED [place] [address] None TCM Nurse 01/19/25 01/19/25 documented as of this encounter
--- OUTSIDE RECORDS SUMMARY | 2025-01-23 07:02 | XMS_ITS | Encounter Summary ---
Author Organization Healthcare Address [address] [place] [address] Care Team Providers Care Director Of Product Development Name Role Phone Pcp, No Primary Care Provider Unavailabl e Encounter Details Date Type Department Care Team (Late st Contact Info) Description 12/09/2024 Orders Only [facility] Transplant Center [address] [place] [address] Ping Daley, RN [facility] L[facility] [id number] [address] [place] [address] Hepatic encephalopathy (CMS/HCC) (Primary Dx); Decompensation of cirrhosis of liver (CMS/HCC) Social History Tobacco Use Types Packs/Day Years [...] time in the past 12 m [facility], were you homeless or living in a correction (including now)? No 10/20/2024 [facility] Utilities Answer [...] Description 01/23/2025 8:40 AM EST [facility] [address] [place] [address] Ucqsmidxyq-Wezpt-Drh rosemary-Paul 03/06/2025 11:10 AM EST Appointment [facility] [address] [place] [address] Natalya Valentine MD [address] [place] [id number] documented as of this encounter Results * (ABNORMAL) Protime-INR (12/10/2024 10:22 AM EDT) Prothrombin Time 26.3(H) 12.0 - 14.3 sec LAB COAGULATION METHOD 12/10/2024 11:09 AM EDT [facility] INR 2.4(H) 0.9 - 1.1 LAB COAGULATION METHOD 12/10/2024 11:09 AM EDT [facility] Blood Venous blood specimen / Unknown Venipuncture / Unknown 12/10/2024 10:22 AM EDT 12/10/2024 10:52 AM EDT Narrative [facility] - 12/10/2024 11:09 AM EDT OPTIMAL INR RANGES FOR PATIENT ON ORAL ANTICOAGULANT THERAPY Prevention of venous thromboembolism INR 2.0 to 3.0 In patients with heart disease: Atrial fibrillation INR 2.0 to 3.0 Valvular heart disease INR 2.0 to 3.0 Tissue heart valves INR 2.0 to 3.0 Mechanical prosthetic valves INR 2.5 to 3.5 Prevention of recurrent ME INR 2.5 to 3.5 us Miquel Lopez MD LAB BLOOD ORDERABLES Final Res ult [facility] [address] [place] [address] * Nicotine Cotinine Metabolite (12/10/2024 10:22 AM EDT) NICOTINE <5 <5 ng/mL 12/12/2024 10:23 AM EDT [facility] Cotinine <5 <5 ng/mL 12/12/2024 10:23 AM EDT [facility] Blood Venous blood specimen / Unknown Venipuncture / Unknown 12/10/2024 10:22 AM EDT 12/10/2024 10:55 AM EDT Narrative [facility] - 12/12/2024 10:23 AM EDT Testing performed by LC-MS/MS at the [facility] Special Chemistry/Toxicology Laboratory. This test was developed and its performance characteristics determined by [facility]. This assay has not been cleared by the FDA. The laboratory is regulated under CLIA as qualified to perform high-complexity testing. This test is used for clinical purposes. us Miquel Lopez MD LAB BLOOD ORDERABLES Final Res ult [facility] [address] [place] [address] * (ABNORMAL) Comprehensive Urine Drug Screening, Qualitative Assay, >= 27 Drug Classes (0:22 AM EDT) Acetaminophen Negative Negative 12/14/2024 4:05 AM EST [facility] Alprazolam Negative Negative 12/14/2024 4:05 AM EST [facility] Amantadine Negative Negative 12/14/2024 4:05 AM EST [facility] Amitriptyline Negative Negative 12/14/2024 4:05 AM [facility] Amphetamine Negative Negative 12/14/2024 4:05 AM EST [facility] Atenolol Negative Negative 12/14/2024 4:05 AM EST [facility] Benzoylecgonine Negative Negative 4:05 AM [facility] Bisoprolol Negative Negative 12/14/2024 4:05 AM EST [facility] Bupropion Positive(A) Negative 12/14/2024 4:05 AM EST [facility] Butalbital Negative Negative 12/14/2024 4:05 AM [facility] Carbamazepine Negative Negative 12/14/2024 4:05 AM [facility] Carisoprodol Negative Negative 12/14/2024 4:05 AM [facility] Chlorpheniramine Negative Negative 12/15/19 4:05 AM [facility] Citalopram Negative Negative 12/14/2024 4:05 AM [facility] Clindamycin Negative Negative 12/14/2024 4:05 AM [facility] Clonidine Negative Negative 12/14/2024 4:05 AM [facility] Clopidogrel / Ticlopidine Negative Negative 12/14/2024 4:05 AM EST [facility] Cocaethylene Negative Negative 12/14/2024 4:05 AM EST [facility] Cocaine Negative Negative 12/14/2024 4:05 AM EST [facility] Codeine Negative Negative 12/14/2024 4:05 AM EST [facility] Cyclobenzaprine Negative Negative 4:05 AM EST [facility] Desvenlafaxine Negative Negative 12/14/2024 4:05 AM EST [facility] Dextromethorphan Negative Negative 12/15/19 4:05 AM EST [facility] Diazepam Negative Negative 12/14/2024 4:05 AM [facility] Diltiazem Negative Negative 12/14/2024 4:05 AM [facility] Diphenhydramine Negative Negative 4:05 AM [facility] Doxepine Negative Negative 12/14/2024 4:05 AM [facility] Doxylamine Negative Negative 12/14/2024 4:05 AM [facility] EDDP-Methadone metabolite Negative Negative 12/14/2024 4:05 AM [facility] Fentanyl Negative Negative 12/14/2024 4:05 AM [facility] Fluconazole Negative Negative 12/14/2024 4:05 AM [facility] Fluoxetine Negative Negative 12/14/2024 4:05 AM [facility] Guaifenesin Negative Negative 12/14/2024 4:05 AM [facility] Haloperidol Negative Negative 12/14/2024 4:05 AM [facility] Heroin/6-EZIO Negative Negative 12/14/2024 4:05 AM [facility] Hydrocodone Negative Negative 12/14/2024 4:05 AM [facility] Hydroxyzine / Cetirizine metabolite Negative Negative 12/14/2024 4:05 AM [facility] Ibuprofen Negative Negative 12/14/2024 4:05 AM [facility] Imipramine Negative Negative 12/14/2024 4:05 AM EST [facility] Ketamine Negative Negative 12/14/2024 4:05 AM [facility] Labetolol Negative Negative 12/14/2024 4:05 AM EST [facility] Lamotrigine Negative Negative 12/14/2024 4:05 AM [facility] Levetiracetam Negative Negative 12/14/2024 4:05 AM [facility] Lidocaine Negative Negative 12/14/2024 4:05 AM [facility] MDA Negative Negative 12/14/2024 4:05 AM [facility] MDMA Negative Negative 12/14/2024 4:05 AM [facility] Memantine Negative Negative 12/14/2024 4:05 AM [facility] Meperidine Negative Negative 12/14/2024 4:05 AM [facility] Meprobamate Negative Negative 12/14/2024 4:05 AM [facility] Metaxalone Negative Negative 12/14/2024 4:05 AM [facility] Methamphetamine Negative Negative 4:05 AM [facility] Methocarbamol Negative Negative 12/14/2024 4:05 AM [facility] Methylecgonine Negative Negative 12/14/2024 4:05 AM [facility] Metoclopramide Negative Negative 12/14/2024 4:05 AM [facility] Metoprolol Negative Negative 12/14/2024 4:05 AM [facility] Metronidazole Negative Negative 12/14/2024 4:05 AM [facility] Midazolam Negative Negative 12/14/2024 4:05 AM [facility] Midazolam Metabolite Negative Negative 12/14/2024 4:05 AM [facility] Mirtazapine Negative Negative 12/14/2024 4:05 AM [facility] Misc Test Result Positive(A) Negative 025 4:05 AM [facility] Comment:Citalopram/Escitalop nasreen Naproxen Negative Negative 12/14/2024 4:05 AM [facility] Nefazodone Negative Negative 12/14/2024 4:05 AM [facility] Norfentanyl Negative Negative 12/14/2024 4:05 AM EST [facility] Nortriptyline Negative Negative 12/14/2024 4:05 AM EST [facility] Ordanstron Negative Negative 12/14/2024 4:05 AM EST [facility] Oxcarbazepine Negative Negative 12/14/2024 4:05 AM EST [facility] Oxycodone Negative Negative 12/14/2024 4:05 AM EST [facility] Paroxethine Negative Negative 12/14/2024 4:05 AM EST [facility] Phenobarbital Negative Negative 12/14/2024 4:05 AM EST [facility] Phentermine Negative Negative 12/14/2024 4:05 AM EST [facility] Phenytoin Negative Negative 12/14/2024 4:05 AM EST [facility] Primidone Negative Negative 12/14/2024 4:05 AM EST [facility] Promethazine Negative Negative 12/14/2024 4:05 AM EST [facility] Propofol Negative Negative 12/14/2024 4:05 AM EST [facility] Propranolol Negative Negative 12/14/2024 4:05 AM EST [facility] Quetiapine Negative Negative 12/14/2024 4:05 AM EST [facility] Quinine Negative Negative 12/14/2024 4:05 AM EST [facility] Rantidine Negative Negative 12/14/2024 4:05 AM EST [facility] Sertraline Negative Negative 12/14/2024 4:05 AM EST [facility] Spironolactone Positive(A) Negative 4:05 AM EST [facility] Tizanidine Negative Negative 12/14/2024 4:05 AM EST [facility] Topiramate Negative Negative 12/14/2024 4:05 AM EST [facility] Tramadol Negative Negative 12/14/2024 4:05 AM EST [facility] Trazadone/ Trazadone metabolite Positive(A) Negative 12/14/2024 4:05 AM EST [facility] Trimethoprim Negative Negative 12/14/2024 4:05 AM EST [facility] Valproic Acid Negative Negative 12/14/2024 4:05 AM EST [facility] Venlafaxine Negative Negative 12/14/2024 4:05 AM EST [facility] Verapamil Negative Negative 12/14/2024 4:05 AM EST [facility] Zolpidem Negative Negative 12/14/2024 4:05 AM EST [facility] Xylazine Negative Negative 12/14/2024 4:05 AM EST [facility] Urine Urine specimen obtained by clean catch procedure / Unknown Non-blood Collection / Unknown 12/10/2024 10:22 AM EDT 12/10/2024 11:27 AM EDT us Miquel Lopez MD LAB URINE ORDERABLES Final Res ult [facility] [address] [place] [address] * (ABNORMAL) Comprehensive metabolic panel (12/10/2024 10:22 AM EDT) Glucose, Plasma 115(H) 74 - 99 mg/dL 12/10/2024 11:34 AM EDT [facility] BUN, Plasma 24(H) 7 - 21 mg/dL 12/10/2024 11:34 AM EDT [facility] Creatinine, Plasma 0.82 0.70 - 1.20 mg/dL 12/10/2024 11:34 AM EDT [facility] BUN/Creatinine Ratio 29 12/10/2024 11:34 AM EDT [facility] Sodium, Plasma 136 136 - 145 mmol/L 12/10/2024 11:34 AM EDT [facility] Potassium, Plasma 3.5(L) 3.6 - 4.9 mmol/L 12/10/2024 11:34 AM EDT [facility] Chloride, Plasma 105 97 - 107 mmol/L 12/10/2024 11:34 AM EDT [facility] CO2, Plasma 20(L) 22 - 29 mmol/L 12/10/2024 11:34 AM EDT [facility] Anion Gap 11 6 - 16 mmol/L 12/10/2024 11:34 AM EDT [facility] Total Calcium, Plasma 8.4(L) 8.9 - 10.2 mg/dL 12/10/2024 11:34 AM EDT [facility] Total Protein 5.8(L) 6.3 - 7.9 g/dL 12/10/2024 11:34 AM EDT [facility] Albumin, Plasma 2.8(L) 3.5 - 5.2 g/dL 12/10/2024 11:34 AM EDT [facility] AST, Plasma 51(H) 10 - 50 U/L 12/10/2024 11:34 AM EDT [facility] ALT, Plasma 25 10 - 50 U/L 12/10/2024 11:34 AM EDT [facility] Alkaline Phosphatase, Plasma 104 40 - 115 U/L 12/10/2024 11:34 AM EDT [facility] Total Bilirubin, Plasma 12.8(H) 0.2 - 1.1 mg/dL 12/10/2024 11:34 AM EDT [facility] eGFRcr 110.4 mL/min/1.7 3m*2 12/10/2024 11:34 AM EDT [facility] Comment:Reported eGFRcr in m L/min/1.73m2 is based the CKD-EPI 2020 equation that does not use a race coefficient. Blood Venous blood specimen / Unknown Venipuncture / Unknown 12/10/2024 10:22 AM EDT 12/10/2024 10:55 AM EDT us Miquel Lopez MD LAB BLOOD ORDERABLES Final Res ult [facility] [address] [place] [address] * (ABNORMAL) CBC w/o differential (12/10/2024 10:22 AM EDT) WBC Count 3.70 3.70 - 10.30 10*3/uL LAB HEMATOLOGY METHOD 12/10/2024 11:01 AM EDT [facility] RBC Count 2.01(L) 4.60 - 6.10 10*6/uL LAB HEMATOLOGY METHOD 12/10/2024 11:01 AM EDT [facility] HGB 6.7(L) 13.7 - 17.5 g/dL LAB HEMATOLOGY METHOD 12/10/2024 11:01 AM EDT [facility] HCT 21.8(L) 40.0 - 51.0 % LAB HEMATOLOGY METHOD 12/10/2024 11:01 AM EDT [facility] Platelet Count 82(L) 155 - 369 10*3/uL LAB HEMATOLOGY METHOD 12/10/2024 11:01 AM EDT [facility] MCV 109(H) 79 - 98 fL LAB HEMATOLOGY METHOD 12/10/2024 11:01 AM EDT [facility] MCH 33.3(H) 26.0 - 32.0 pg LAB HEMATOLOGY METHOD 12/10/2024 11:01 AM EDT [facility] MCHC 30.7 30.7 - 35.5 g/dL LAB HEMATOLOGY METHOD 12/10/2024 11:01 AM EDT [facility] RDW 17.5(H) 11.5 - 14.5 % LAB HEMATOLOGY METHOD 12/10/2024 11:01 AM EDT [facility] MPV 10.5 8.8 - 12.5 fL LAB HEMATOLOGY METHOD 12/10/2024 11:01 AM EDT [facility] nRBC 0.0 <=0.0 per 100 WBCs LAB HEMATOLOGY METHOD 12/10/2024 11:01 AM EDT [facility] Blood Venous blood specimen / Unknown Venipuncture / Unknown 12/10/2024 10:22 AM EDT 12/10/2024 10:53 AM EDT us Miquel Lopez MD LAB BLOOD ORDERABLES Final Res ult [facility] [address] [place] [address] * Alcohol Urine (12/10/2024 10:22 AM EDT) Alcohol Urine Negative Negative 12/10/2024 1:41 PM EDT [facility] Urine Urine specimen obtained by clean catch procedure / Unknown Non-blood Collection / Unknown 12/10/2024 10:22 AM EDT 12/10/2024 11:27 AM EDT Narrative [facility] - 12/10/2024 1:41 PM EDT The correlation between urine and serum ethanol concentration is highly variable. Test performed by Gas Chromatography at the [facility] Chemistry Laboratory. This test was developed and its performance characteristics determined by [facility]. It has not been cleared or approved by the FDA.The laboratory is regulated under CLIA as qualified to perform high-complexity testing. This test is used for clinical purposes only. The correlation between urine and serum ethanol concentration is highly variable. Test performed by Gas Chromatography at the [facility]. This test was developed and its performance characteristics determined by [facility]. It has not been cleared or approved by the FDA.The laboratory is regulated under CLIA as qualified to perform high-complexity testing. This test is used for clinical purposes only. Miquel Lopez MD LAB URINE ORDERABLES Final Res ult [facility] [address] [place] [address] documented in this encounter Visit Diagnoses Diagnosis Hepatic encephalopathy (CMS/HCC)- Primary Hepatic encephalopathy Decompensation of cirrhosis of liver (CMS/HCC) documented in this encounter Additional Health Concerns [...] documented as of this encounter Care Teams Director Of Product Development Relationship Specialty Start Date End Date Pcp, Smiley [address] [place] [address] PCP - General Family Medicine 10/20/23 12/21/24 documented as of this encounter
--- OUTSIDE RECORDS SUMMARY | 2025-01-23 07:03 | XMS_ITS | Encounter Summary ---
Author Organization Healthcare Address [address] [place] [address] Care Team Providers Care Chemical Treatment Operator Name Role Phone Pcp, No Primary Care Provider Unavailabl e Param Eng DO Primary Care Provider [phone] Anh Harvey LPN Unavailable Unavailable Encounter Details Date Type Department Care Team (Late st Contact Info) Description 12/12/2024 Results Follow-Up [facility] Transplant Center [address] [facility] [address] [place] [address] Ping Daley, RN [id number] [address] [place] [address] Social History Tobacco Use Types Packs/Day Years [...] any time in the past 12 m [facility], were you homeless or living in a assisted (including now)? No 10/20/2024 [facility] Utilities Answer Date Recorded In [...] as of this encounter Miscellaneous Notes * Result Encounter Note - Ping Daley RN - 12/12/2024 1:38 PM EDT Called pt on cell phone. No answer. Left message instructing him to go to ED * Result Encounter Note - Ping Daley RN - 12/12/2024 11:33 AM EDT Labs for review documented in this encounter Plan of Treatment Upcoming Encounters Date Type Department Care Team (Late st Contact Info) Description 01/23/2025 8:40 AM EST Office Visit [facility] Transplant Center [address] [place] [id number] Nklaxnsvva-Fbqtt-Kxz rosemary-Paul 03/06/2025 11:10 AM EST Appointment [facility] [address] [place] [address] Natalya Valentine MD [address] [place] [address] documented as of this encounter Visit Diagnoses Not on filedocumented in this encounter Additional Health Concerns Infection Onset Date Last Indicated Resolved Time C. difficile 11/04/2024 11/04/2024 12/18/2024 7:20 PM EST COVID-19 Rule-Out 01/02/2025 01/02/2025 01/02/2025 11:10 AM EST Assessment Noted Time PHQ-9 Depression Total Score: 9 11/26/19 11:02 AM EDT A fall risk assessment has been complete d for the patient 12/03/2024 10:37 AM EDT A Body Mass Index follow-up plan has been documented for the patient 12/03/2024 1:56 PM EDT documented as of this encounter Care Teams Chemical Treatment Operator Relationship Specialty Start Date End Date Pcp, Smiley [address] [place] [address] PCP - General Family Medicine 10/20/23 12/21/24 Param Eng, [facility] [address] [place] [address] PCP - General 12/22/24 Anh Harvey LPN [employer] [place] [address] None TCM Nurse 01/19/25 01/19/25 documented as of this encounter
--- OUTSIDE RECORDS SUMMARY | 2025-01-23 07:03 | XMS_ITS | Encounter Summary ---
Author Organization Healthcare Address [address] [place] [address] Care Team Providers Care Seam Presser Name Role Phone Pcp, No Primary Care Provider Unavailabl e Param Eng DO Primary Care Provider [phone] Reason for Visit * Reason Onset Date Comments Xifaxan PAP 12/03/2024 Encounter Details Date Type Department Care Team (Late st Contact Info) Description 12/03/2024 [facility] [address] [place] [address] Reena Valerio, PharmD [place] [address] Xifaxan PAP Social History Tobacco Use Types Packs/Day Years [...] any clubs o r organizations such as lutheran groups, unions, fraVeeqo or athletic groups, or school groups? No [...] and heating? Hard 01/02/2025 [facility] - Occupational [...] any time in the past 12 m [facility], were you homeless or living in a residential (including now)? No 01/02/2025 [facility] Utilities Answer Date Recorded In [...] drink first t edgardo in the morning (EYE-FILLER PICKER) to steady your nerves or to get [...] of Assessment Author Precautions Environmental surveillance 01/03/2025 8:[address] RN * AUDIT-C Score Answer Date of [...] of Assessment Author Precautions Environmental surveillance 01/03/2025 8:[address] RN * Over the past 2 weeks, [...] 12/30/2024 7:10 AM Carlie Brandon RN * Calculated C-SSRS Risk Score (Lifetime/Recent) Answer Date of Assessment Author No Risk Indicated 01/02/2025 8:00 PM Allison Mix RN * How difficult have these problems made it for you to do your work, take care of things at home, or get along with other people? Answer Date of Assessment Author Somewhat difficult 12/30/2024 7:10 AM Carlie Perkins i, RN * Question Answer Date of Assessment [...] Environmental surveillance 01/03/2025 8:[address] RN * Question Answer Entry Date Author Backup Resp Rate (Set) 16 01/03/2025 3:01 PM EST Blaine Alexis documented in this encounter Plan of Treatment Upcoming Encounters Date Type Department Care Team (Late st Contact Info) Description 01/23/2025 8:40 AM EST Office Visit [facility] Trans[facility] [address] [place] [address] Cusvsjnfdu-Jgifk-Lkw rosemary-Paul 03/06/2025 11:10 AM EST Appointment [facility] [address] [place] [address] Natalya Valentine MD [address] [place] [id number] documented as of this encounter Visit Diagnoses [...] documented as of this encounter Care Teams Seam Presser Relationship Specialty Start Date End Date Pcp, [place] [address] PCP - General Family Medicine 10/20/23 12/21/24 Param Eng, [facility] [address] [address] PCP - General 12/22/24 documented as of this encounter
--- OUTSIDE RECORDS SUMMARY | 2025-01-23 07:03 | XMS_ITS | Encounter Summary ---
Author Organization [facility] Address [address] [place] [address] Care Team Providers Care Director Of Institutional Sales Name Role Phone Pcp, No Primary Care Provider Unavailabl e Encounter Details Date Type Department Care Team (Latest Contact Info) Description 12/03/2024 Travel Social History Tobacco Use Types Packs/Day [...] time in the past 12 m [facility], were you homeless or living in a residential (including now)? No 10/20/2024 [facility] Utilities Answer Date Recorded In the past 12 months has th e electric, gas, oil, or water [email or web address] threatened to shut off services in your [...] things Not at all 12/03/2024 10:37 AM Sammi Nunez Feeling down, depressed, or hopeless Not at all 12/03/2024 10:37 AM Sammi Nunez Patient Health Questionnaire -2 Score 0 12/03/2024 10:37 AM Sammi Nunez * How difficult have these problems made it for you to do your work, take care of things at home, or get along with other people? Answer Date of Assessment Author Not difficult at all 12/03/2024 10:37 AM EDT Shawn Goldsmith documented as of this encounter Plan of Treatment Upcoming Encounters Date Type Department Care Team (Late st Contact Info) Description 01/23/2025 8:40 AM EST Office Visit [facility] [address] [place] [address] Fedmigphhw-Uhcex-Xej rosemary-Paul 03/06/2025 11:10 AM EST Appointment [facility] [address] [place] [address] Natalya Valentine MD [address] [place] [address] documented as of this encounter [...] of this encounter Care Teams Director Of Institutional Sales Relationship Specialty Start Date End Date Pcp, Smiley [address] [place] [address] PCP - General Family Medicine 10/20/23 12/21/24 documented as of this encounter
--- OUTSIDE RECORDS SUMMARY | 2025-01-23 07:04 | XMS_ITS | Encounter Summary ---
Author Organization [facility] Address [address] [place] [address] Care Team Providers Care Yardage Estimator Name Role Phone Pcp, No Primary Care Provider Unavailabl e Encounter Details Date Type Department Care Team (Latest Contact Info) Description 12/02/2024 Travel Social History Tobacco Use Types Packs/Day [...] in a group home (including now)? No 10/20/2024 [facility] Utilities Answer Date Recorded In [...] Description 01/23/2025 8:40 AM EST Office Visit [facility] [address] [place] [phone] Lcpsnxfjcb-Kpwqb-Cxr rosemary-Paul 03/06/2025 11:10 AM EST Appointment [facility] [address] [place] [phone] Natalya Valentine MD [address] [place] [phone] documented as of this encounter Visit Diagnoses [...] documented as of this encounter Care Teams Yardage Estimator Relationship Specialty Start Date End Date Pcp, Smiley [address] [place] [address] PCP - General Family Medicine 10/20/23 12/21/24 documented as of this encounter
--- OUTSIDE RECORDS SUMMARY | 2025-01-23 07:04 | XMS_ITS | Encounter Summary ---
Author Organization Healthcare Address [address] [place] [address] Care Team Providers Care Painter Railroad Car Name Role Phone Pcp, No Primary Care Provider Unavailabl e Encounter Details Date Type Department Care Team (Late st Contact Info) Description 12/02/2024 Orders Only [facility] [address] [facility] [address] [place] [address] Ping Daley, RN [id number] [address] [place] [address] Decompensation of cirrhosis of liver (CMS/HCC) (Primary Dx); Portal hypertension (CMS/HCC) Social History Tobacco Use Types Packs/Day [...] living in a fdc (including now)? No 10/20/2024 [facility] Utilities Answer Date Recorded In [...] Description 01/23/2025 8:40 AM EST Office Visit [facility] [address] [place] [address] Fokpwfpaxc-Nzbjf-Vmn rosemary-Paul 03/06/2025 11:10 AM EST Appointment [facility] [address] [place] [address] Natalya Valentine MD [address] [place] [address] documented as of this encounter Results * (ABNORMAL) Protime-INR (12/03/2024 9:35 AM EDT) Prothrombin Time 26.1(H) 12.0 - 14.3 sec LAB COAGULATION METHOD 12/03/2024 11:12 AM EDT [facility] INR 2.4(H) 0.9 - 1.1 LAB COAGULATION METHOD 12/03/2024 11:12 AM EDT [facility] Blood Venous blood specimen / Unknown Venipuncture / Unknown 12/03/2024 9:35 AM EDT 12/03/2024 10:52 AM EDT [facility] - 12/03/2024 11:12 AM EDT OPTIMAL INR RANGES FOR PATIENT ON ORAL ANTICOAGULANT THERAPY Prevention of venous thromboembolism INR 2.0 to 3.0 In patients with heart disease: Atrial fibrillation INR 2.0 to 3.0 Valvular heart disease INR 2.0 to 3.0 Tissue heart valves INR 2.0 to 3.0 Mechanical prosthetic valves INR 2.5 to 3.5 Prevention of recurrent OH INR 2.5 to 3.5 us Miquel Lopez MD LAB BLOOD ORDERABLES Final Res ult [facility] [address] [place] [address] * (ABNORMAL) Nicotine Cotinine Metabolite (12/03/2024 9:35 AM EDT) NICOTINE <5 <5 ng/mL 12/07/2024 4:0 4 PM EDT [facility] Cotinine 28(H) <5 ng/mL 12/07/2024 4:0 4 PM EDT [facility] Blood Venous blood specimen / Unknown Venipuncture / Unknown 12/03/2024 9:35 AM EDT 12/03/2024 10:54 AM EDT [facility] - 12/07/2024 4:04 PM EDT Testing performed by LC-MS/MS at the [facility]. This test was developed and its performance characteristics determined by [facility]. This assay has not been cleared by the FDA. The laboratory is regulated under CLIA as qualified to perform high-complexity testing. This test is used for clinical purposes. us Miquel Lopez MD LAB BLOOD ORDERABLES Final Res ult [facility] [address] [place] [address] * (ABNORMAL) Comprehensive Urine Drug Screening, Qualitative Assay, >= 27 Drug Classes (:35 AM EDT) Acetaminophen Negative Negative 12/05/2024 1:29 AM EDT [facility] Alprazolam Negative Negative 12/05/2024 1:29 AM EDT [facility] Amantadine Negative Negative 12/05/2024 1:29 AM EDT [facility] Amitriptyline Negative Negative 12/05/2024 1:29 AM EDT [facility] Amphetamine Negative Negative 12/05/2024 1:29 AM EDT [facility] Atenolol Negative Negative 12/05/2024 1:29 AM EDT [facility] Benzoylecgonine Negative Negative 1:29 AM EDT [facility] Bisoprolol Negative Negative 12/05/2024 1:29 AM EDT [facility] Bupropion Positive(A) Negative 12/05/2024 1:29 AM EDT [facility] Butalbital Negative Negative 12/05/2024 1:29 AM EDT [facility] Carbamazepine Negative Negative 12/05/2024 1:29 AM EDT [facility] Carisoprodol Negative Negative 12/05/2024 1:29 AM EDT [facility] Chlorpheniramine Negative Negative 12/06/19 1:29 AM EDT [facility] Citalopram Negative Negative 12/05/2024 1:29 AM EDT [facility] Clindamycin Negative Negative 12/05/2024 1:29 AM EDT [facility] Clonidine Negative Negative 12/05/2024 1:29 AM EDT [facility] Clopidogrel / Ticlopidine Negative Negative 12/05/2024 1:29 AM EDT [facility] Cocaethylene Negative Negative 12/05/2024 1:29 AM EDT [facility] Cocaine Negative Negative 12/05/2024 1:29 AM EDT [facility] Codeine Negative Negative 12/05/2024 1:29 AM EDT [facility] Cyclobenzaprine Negative Negative 1:29 AM EDT [facility] Desvenlafaxine Negative Negative 12/05/2024 1:29 AM EDT [facility] Dextromethorphan Negative Negative 12/06/19 1:29 AM EDT [facility] Diazepam Negative Negative 12/05/2024 1:29 AM EDT [facility] Diltiazem Negative Negative 12/05/2024 1:29 AM EDT [facility] Diphenhydramine Negative Negative 1:29 AM EDT [facility] Doxepine Negative Negative 12/05/2024 1:29 AM EDT [facility] Doxylamine Negative Negative 12/05/2024 1:29 AM EDT [facility] EDDP-Methadone metabolite Negative Negative 12/05/2024 1:29 AM EDT [facility] Fentanyl Negative Negative 12/05/2024 1:29 AM EDT [facility] Fluconazole Negative Negative 12/05/2024 1:29 AM EDT [facility] Fluoxetine Negative Negative 12/05/2024 1:29 AM EDT [facility] Guaifenesin Negative Negative 12/05/2024 1:29 AM EDT [facility] Haloperidol Negative Negative 12/05/2024 1:29 AM EDT [facility] Heroin/6-EZIO Negative Negative 12/05/2024 1:29 AM EDT [facility] Hydrocodone Negative Negative 12/05/2024 1:29 AM EDT [facility] Hydroxyzine / Cetirizine metabolite Negative Negative 12/05/2024 1:29 AM EDT [facility] Ibuprofen Negative Negative 12/05/2024 1:29 AM EDT [facility] Imipramine Negative Negative 12/05/2024 1:29 AM EDT [facility] Ketamine Negative Negative 12/05/2024 1:29 AM EDT [facility] Labetolol Negative Negative 12/05/2024 1:29 AM EDT [facility] Lamotrigine Negative Negative 12/05/2024 1:29 AM EDT [facility] Levetiracetam Negative Negative 12/05/2024 1:29 AM EDT [facility] Lidocaine Negative Negative 12/05/2024 1:29 AM EDT [facility] MDA Negative Negative 12/05/2024 1:29 AM EDT [facility] MDMA Negative Negative 12/05/2024 1:29 AM EDT [facility] Memantine Negative Negative 12/05/2024 1:29 AM EDT [facility] Meperidine Negative Negative 12/05/2024 1:29 AM EDT [facility] Meprobamate Negative Negative 12/05/2024 1:29 AM EDT [facility] Metaxalone Negative Negative 12/05/2024 1:29 AM EDT [facility] Methamphetamine Negative Negative 1:29 AM EDT [facility] Methocarbamol Negative Negative 12/05/2024 1:29 AM EDT [facility] Methylecgonine Negative Negative 12/05/2024 1:29 AM EDT [facility] Metoclopramide Negative Negative 12/05/2024 1:29 AM EDT [facility] Metoprolol Negative Negative 12/05/2024 1:29 AM EDT [facility] Metronidazole Negative Negative 12/05/2024 1:29 AM EDT [facility] Midazolam Negative Negative 12/05/2024 1:29 AM EDT [facility] Midazolam Metabolite Negative Negative 12/05/2024 1:29 AM EDT [facility] Mirtazapine Negative Negative 12/05/2024 1:29 AM EDT [facility] Misc Test Result Positive(A) Negative 025 1:29 AM EDT [facility] Comment: Bupropion metabolite detected. Trazodone detected. Citalopram/escitalopram detected. Naproxen Negative Negative 12/05/2024 1:29 AM EDT [facility] Nefazodone Negative Negative 12/05/2024 1:29 AM EDT [facility] Norfentanyl Negative Negative 12/05/2024 1:29 AM EDT [facility] Nortriptyline Negative Negative 12/05/2024 1:29 AM EDT [facility] Ordanstron Negative Negative 12/05/2024 1:29 AM EDT [facility] Oxcarbazepine Negative Negative 12/05/2024 1:29 AM EDT [facility] Oxycodone Negative Negative 12/05/2024 1:29 AM EDT [facility] Paroxethine Negative Negative 12/05/2024 1:29 AM EDT [facility] Phenobarbital Negative Negative 12/05/2024 1:29 AM EDT [facility] Phentermine Negative Negative 12/05/2024 1:29 AM EDT [facility] Phenytoin Negative Negative 12/05/2024 1:29 AM EDT [facility] Primidone Negative Negative 12/05/2024 1:29 AM EDT [facility] Promethazine Negative Negative 12/05/2024 1:29 AM EDT [facility] Propofol Negative Negative 12/05/2024 1:29 AM EDT [facility] Propranolol Negative Negative 12/05/2024 1:29 AM EDT [facility] Quetiapine Negative Negative 12/05/2024 1:29 AM EDT [facility] Quinine Negative Negative 12/05/2024 1:29 AM EDT [facility] Rantidine Negative Negative 12/05/2024 1:29 AM EDT [facility] Sertraline Negative Negative 12/05/2024 1:29 AM EDT [facility] Spironolactone Positive(A) Negative 1:29 AM EDT [facility] Tizanidine Negative Negative 12/05/2024 1:29 AM EDT [facility] Topiramate Negative Negative 12/05/2024 1:29 AM EDT [facility] Tramadol Negative Negative 12/05/2024 1:29 AM EDT [facility] Trazadone/ Trazadone metabolite Negative Negative 12/05/2024 1:29 AM EDT [facility] Trimethoprim Negative Negative 12/05/2024 1:29 AM EDT [facility] Valproic Acid Negative Negative 12/05/2024 1:29 AM EDT [facility] Venlafaxine Negative Negative 12/05/2024 1:29 AM EDT [facility] Verapamil Negative Negative 12/05/2024 1:29 AM EDT [facility] Zolpidem Negative Negative 12/05/2024 1:29 AM EDT [facility] Xylazine Negative Negative 12/05/2024 1:29 AM EDT [facility] Urine Urine specimen obtained by clean catch procedure / Unknown Non-blood Collection / Unknown 12/03/2024 9:35 AM EDT 12/03/2024 11:02 AM EDT us Miquel Lopez MD LAB URINE ORDERABLES Final Res ult [facility] [address] [place] [address] * (ABNORMAL) Comprehensive metabolic panel (12/03/2024 9:35 AM EDT) Glucose, Plasma 87 74 - 99 mg/dL 12/03/2024 11:25 AM EDT [facility] BUN, Plasma 19 7 - 21 mg/dL 12/03/2024 11:25 AM EDT [facility] Creatinine, Plasma 0.79 0.70 - 1.20 mg/dL 12/03/2024 11:25 AM EDT [facility] BUN/Creatinine Ratio 24 12/03/2024 11:25 AM EDT [facility] Sodium, Plasma 137 136 - 145 mmol/L 12/03/2024 11:25 AM EDT [facility] Potassium, Plasma 4.3 3.6 - 4.9 mmol/L 12/03/2024 11:25 AM EDT [facility] Chloride, Plasma 107 97 - 107 mmol/L 12/03/2024 11:25 AM EDT [facility] CO2, Plasma 22 22 - 29 mmol/L 12/03/2024 11:25 AM EDT [facility] Anion Gap 8 6 - 16 mmol/L 12/03/2024 11:25 AM EDT [facility] Total Calcium, Plasma 8.8(L) 8.9 - 10.2 mg/dL 12/03/2024 11:25 AM EDT [facility] Total Protein 6.3 6.3 - 7.9 g/dL 12/03/2024 11:25 AM EDT [facility] Albumin, Plasma 3.0(L) 3.5 - 5.2 g/dL 12/03/2024 11:25 AM EDT [facility] AST, Plasma 59(H) 10 - 50 U/L 12/03/2024 11:25 AM EDT [facility] ALT, Plasma 24 10 - 50 U/L 12/03/2024 11:25 AM EDT [facility] Alkaline Phosphatase, Plasma 140(H) 40 - 115 U/L 12/03/2024 11:25 AM EDT [facility] Total Bilirubin, Plasma 14.2(H) 0.2 - 1.1 mg/dL 12/03/2024 11:25 AM EDT [facility] eGFRcr 111.6 mL/min/1.7 3m*2 12/03/2024 11:25 AM EDT [facility] Comment:Reported eGFRcr in m L/min/1.73m2 is based the CKD-EPI 2020 equation that does not use a race coefficient. Blood Venous blood specimen / Unknown Venipuncture / Unknown 12/03/2024 9:35 AM EDT 12/03/2024 10:52 AM EDT us Miquel Lopez MD LAB BLOOD ORDERABLES Final Res ult [facility] [address] [place] [address] * (ABNORMAL) CBC w/o differential (12/03/2024 9:35 AM EDT) WBC Count 3.73 3.70 - 10.30 10*3/uL LAB HEMATOLOGY METHOD 12/03/2024 11:12 AM EDT [facility] RBC Count 2.28(L) 4.60 - 6.10 10*6/uL LAB HEMATOLOGY METHOD 12/03/2024 11:12 AM EDT [facility] HGB 7.3(L) 13.7 - 17.5 g/dL LAB HEMATOLOGY METHOD 12/03/2024 11:12 AM EDT [facility] HCT 24.8(L) 40.0 - 51.0 % LAB HEMATOLOGY METHOD 12/03/2024 11:12 AM EDT [facility] Platelet Count 97(L) 155 - 369 10*3/uL LAB HEMATOLOGY METHOD 12/03/2024 11:12 AM EDT [facility] MCV 109(H) 79 - 98 fL LAB HEMATOLOGY METHOD 12/03/2024 11:12 AM EDT [facility] MCH 32.0 26.0 - 32.0 pg LAB HEMATOLOGY METHOD 12/03/2024 11:12 AM EDT [facility] MCHC 29.4(L) 30.7 - 35.5 g/dL LAB HEMATOLOGY METHOD 12/03/2024 11:12 AM EDT [facility] RDW 17.5(H) 11.5 - 14.5 % LAB HEMATOLOGY METHOD 12/03/2024 11:12 AM EDT [facility] MPV 10.7 8.8 - 12.5 fL LAB HEMATOLOGY METHOD 12/03/2024 11:12 AM EDT [facility] nRBC 0.0 <=0.0 per 100 WBCs LAB HEMATOLOGY METHOD 12/03/2024 11:12 AM EDT [facility] Blood Venous blood specimen / Unknown Venipuncture / Unknown 12/03/2024 9:35 AM EDT 12/03/2024 11:02 AM EDT us Miquel Lopez MD LAB BLOOD ORDERABLES Final Res ult [facility] [address] [place] [address] * Alcohol Urine (12/03/2024 9:35 AM EDT) Alcohol Urine Negative Negative 12/03/2024 2:08 PM EDT [facility] Urine Urine specimen obtained by clean catch procedure / Unknown Non-blood Collection / Unknown 12/03/2024 9:35 AM EDT 12/03/2024 11:02 AM EDT Narrative [facility] - 12/03/2024 2:08 PM EDT The correlation between urine and serum ethanol concentration is highly variable. Test performed by Gas Chromatography at the [facility]. This test was developed and its performance characteristics determined by [facility]. It has not been cleared or approved by the FDA.The laboratory is regulated under CLIA as qualified to perform high-complexity testing. This test is used for clinical purposes only. The correlation between urine and serum ethanol concentration is highly variable. Test performed by Gas Chromatography at the [facility]. This test was developed and its performance characteristics determined by [facility]. It has not been cleared or approved by the FDA.The laboratory is regulated under CLIA as qualified to perform high-complexity testing. This test is used for clinical purposes only. Miquel Lopez MD LAB URINE ORDERABLES Final Res ult [facility] [address] [place] [address] documented in this encounter Visit Diagnoses Diagnosis Decompensation of cirrhosis of liver (CMS/HCC)- Primary Portal hypertension (CMS/HCC) Portal hypertension documented in this encounter Additional Health Concerns [...] documented as of this encounter Care Teams Painter Railroad Car Relationship Specialty Start Date End Date Pcp, No [address] [place] [address] PCP - General Family Medicine 10/20/23 12/21/24 documented as of this encounter
--- OUTSIDE RECORDS SUMMARY | 2025-01-23 07:04 | XMS_ITS | Encounter Summary ---
Author Organization Healthcare Address [address] [place] [address] Care Team Providers Care Automotive Production Worker Name Role Phone Pcp, No Primary Care Provider Unavailabl e Encounter Details Date Type Department Care Team (Late st Contact Info) Description 11/26/2024 Refill [facility] [address] [facility] [address] [place] [address] Ping Daley, RN [id number] [address] [place] [address] Insomnia, unspecified type Social History Tobacco Use Types [...] any time in the past 12 m [facility], were you homeless or living in a residential (including now)? No 10/20/2024 [facility] Utilities Answer Date Recorded In [...] Description 01/23/2025 8:40 AM EST Office Visit [facility] [address] [place] [address] Gssuhzadmp-Jpbih-Afu rosemary-Paul 03/06/2025 11:10 AM EST Appointment [facility] [address] [place] [phone] Natalya Valentine MD [address] [place] [address] documented as of this encounter Visit Diagnoses Diagnosis Insomnia, unspecified type documented in this encounter Additional [...] documented as of this encounter Care Teams Automotive Production Worker Relationship Specialty Start Date End Date Pcp, Sm[place] [address] PCP - General Family Medicine 10/20/23 12/21/24 documented as of this encounter
--- OUTSIDE RECORDS SUMMARY | 2025-01-23 07:04 | XMS_ITS | Encounter Summary ---
Author Organization [facility] Address [address] [place] [address] Care Team Providers Care Sales Coach Name Role Phone Pcp, No Primary Care Provider Unavailabl e Encounter Details Date Type Department Care Team (Latest Contact Info) Description 11/25/2024 Travel Social History Tobacco Use Types Packs/Day [...] were you homeless or living in a [facility] (including now)? No 10/20/2024 [facility] Utilities Answer Date Recorded In the past 12 months has th e [employer], gas, oil, or water [employer] threatened to shut off services in your [...] little energy Several days 11/25/2024 11:02 AM EDT Buddy Garcia Poor appetite or overeating Not at all 11/25/2024 11 :02 AM EDT Buddy Garcia Feeling bad about yourself - or that you are a failure or have let yourself or your family down Not at all 11/25/2024 11:02 AM EDT Buddy Garcia Trouble concentrating on things, such as reading the newspaper or watching television Not at all 11/25/2024 11:02 AM EDT Buddy Garcia Moving or speaking so slowly that other people could have noticed. Or the opposite - being so fidgety or restless that you have been moving around a lot more than usual Nearly every day 11/25/2024 11:02 AM EDT Buddy Garcia Thoughts that you would be better off or hurting yourself in some way Not at all 11/25/2024 11:02 AM EDT Buddy Garcia Patient Health Questionnaire-9 Score 9 11/25/2024 11:02 AM EDT Buddy Garcia * How difficult have these problems made it for you to do your work, take care of things at home, or get along with other people? Answer Date of Assessment Author Somewhat difficult 11/25/2024 11:02 AM EDT Buddy Robin documented as of this encounter Plan of Treatment Upcoming Encounters Date Type Department Care Team (Late st Contact Info) Description 01/23/2025 8:40 AM EST Office Visit [facility] [address] [place] [address] Ttkdxxmisl-Tjqrk-Vsj rosemary-Paul 03/06/2025 11:10 AM EST Appointment [facility] [address] [place] [phone] Natalya Valentine MD [address] [place] [address] documented as of this encounter [...] as of this encounter Care Teams Sales Coach Relationship Specialty Start Date End Date Pcp, [place] [address] PCP - General Family Medicine 10/20/23 12/21/24 documented as of this encounter
--- OUTSIDE RECORDS SUMMARY | 2025-01-23 07:04 | XMS_ITS | Encounter Summary ---
Author Organization Healthcare Address [address] [place] [address] Care Team Providers Care Chemical Equipment Controller Name Role Phone Pcp, No Primary Care Provider Unavailabl e Encounter Details Date Type Department Care Team (Late st Contact Info) Description 11/28/2024 Results Follow-Up [facility] [address] [facility] [address] [place] [address] Ping Daley, RN [id number] [address] [place] [address] Social History Tobacco Use Types Packs/Day Years [...] any time in the past 12 m [facility], were you homeless or living in a retirement (including now)? No 10/20/2024 [facility] Utilities Answer Date Recorded In the [...] Encounter Note - Ping Daley RN - 11/28/2024 10:13 AM EDT Correction - peth neg; nicotine pos * Result Encounter Note - Ping Daley RN - 11/28/2024 10:08 AM EDT Pos peth documented in this encounter Plan of Treatment Upcoming Encounters Date Type Department Care Team (Late st Contact Info) Description 01/23/2025 8:40 AM EST Office Visit [facility] [address] [place] [address] Jxzghimkdh-Uaizp-Fic rosemary-Paul 03/06/2025 11:10 AM EST Appointment [facility] [address] [place] [address] Natalya Valentine MD [address] [place] [address] documented as of this encounter [...] as of this encounter Care Teams Chemical Equipment Controller Relationship Specialty Start Date End Date Pcp, [place] [address] PCP - General Family Medicine 10/20/23 12/21/24 documented as of this encounter
--- OUTSIDE RECORDS SUMMARY | 2025-01-23 07:04 | XMS_ITS | Encounter Summary ---
Author Organization Healthcare Address [address] [place] [address] Care Team Providers Care Physician Advisor Name Role Phone Pcp, No Primary Care Provider Unavailabl e Encounter Details Date Type Department Care Team (Late st Contact Info) Description 12/04/2024 Refill [facility] [address] [facility] [address] [place] [address] Brionna Martinez, CRISTAL [address] [facility] [address] [place] [address] Hepatic encephalopathy (CMS/HCC) Social History Tobacco Use Types Packs/Day [...] time in the past 12 m [facility], were you homeless or living in a half-way (including now)? No 10/20/2024 [facility] Utilities Answer Date Recorded In [...] Description 01/23/2025 8:40 AM EST Office Visit [facility] [address] [place] [address] Figzjcxoft-Fkywi-Xna rosemary-Paul 03/06/2025 11:10 AM EST Appointment [facility] Endoscopy [address] [place] [phone] Natalya Valentine MD [address] [place] [address] documented as of this encounter Visit Diagnoses Diagnosis Hepatic encephalopathy (CMS/HCC) Hepatic encephalopathy documented in this encounter Additional Health Concerns [...] documented as of this encounter Care Teams Physician Advisor Relationship Specialty Start Date End Date Pcp, [place] [address] PCP - General Family Medicine 10/20/23 12/21/24 documented as of this encounter
--- OUTSIDE RECORDS SUMMARY | 2025-01-23 07:05 | XMS_ITS ---
Author Organization [facility] Address [address] [place] [address] Care Team Providers Care Repair Armature Winder Name Role Phone Param Eng DO Primary Care Provider [phone] Transitional Care Management Status:Closed (Closed) Program category:Transitional Care Management - [facility] Start date:01/19/2025 Enrollment reason:Identified using hospital discharge data End date:01/19/2025 Close reason:Enrollment Error Overview This episode type is for outpatient care managers enrolling patients in the [facility] Transitional Care Management program. Continued Care and Services Coordination
--- OUTSIDE RECORDS SUMMARY | 2025-01-23 07:05 | XMS_ITS | Encounter Summary ---
Author Organization Healthcare Address [address] [place] [address] Care Team Providers Care Sales Program Manager Name Role Phone Pcp, No Primary Care Provider Unavailabl Param Hernandes DO Primary Care Provider [phone] Anh Harvey LPN Unavailable Unavailable Encounter Details Date Type Department Care Team (Late st Contact Info) Description 09/04/2024 Orders Only External Location [address] [place] [phone] Provider, External Social History Tobacco Use Types Packs/Day Years Used Date Smoking Tobacco: Never Assessed Sex and Gender Information Value Date Recorded Sex Assigned at Not on file Legal Sex Male 2:45 PM EDT Gender Identity Not on file Sexual Orientation Not on file documented as of this encounter Plan of Treatment Upcoming Encounters Date Type Department Care Team (Late st Contact Info) Description 01/23/2025 8:40 AM EST Office Visit [facility] [address] [place] [address] Qsvcfcahgc-Qflyn-Jjy rosemary-Paul 03/06/2025 11:10 AM EST Appointment [facility] End[facility] [address] [place] [address] Natalya Valentine MD [address] [place] [address] documented as of this encounter Procedures Procedure Name Priority Date/Time Associated Diagnosis Comments CT OUTSIDE IMAGES 09/04/2024 3:10 PM EDT documented in this encounter Results * CT OUTSIDE IMAGES (09/04/2024 3:10 PM EDT) Anatomical Region Laterality Modality Computed Tomogra phy 09/04/2024 3:10 PM EDT External Provider IMG CT PROCEDURES Final Result documented in this encounter Visit Diagnoses Not on filedocumented in this encounter Additional Health Concerns Infection Onset Date Last Indicated Resolved Time C. difficile 11/04/2024 11/04/2024 12/18/2024 7:20 PM EST COVID-19 Rule-Out 01/02/2025 01/02/2025 01/02/2025 11:10 AM EST documented as of this encounter Care Teams Sales Program Manager Relationship Specialty Start Date End Date Pcp, Smiley [address] [place] [address] PCP - General Family Medicine 10/20/23 12/21/24 Param Eng, [facility] [address] [place] [address] PCP - General 12/22/24 Anh Harvey LPN [employer] [place] [address] None TCM Nurse 01/19/25 01/19/25 documented as of this encounter
--- OUTSIDE RECORDS SUMMARY | 2025-01-23 07:05 | XMS_ITS | Encounter Summary ---
Author Organization Healthcare Address [address] [place] [address] Care Team Providers Care Installer Soft Top Name Role Phone Pcp, No Primary Care Provider Unavailabl Param Hernandes DO Primary Care Provider [phone] Anh Harvey LPN Unavailable Unavailable Encounter Details Date Type Department Care Team (Late st Contact Info) Description 09/03/2024 Orders Only External Location [address] [place] [phone] Provider, External Social History Tobacco Use Types [...] Description 01/23/2025 8:40 AM EST Office Visit [facility] [address] [place] [address] Vuponvanhk-Jease-Ekv rosemary-Paul 03/06/2025 11:10 AM EST Appointment [facility] [address] [place] [address] Natalya Valentine MD [address] [place] [address] documented as of this encounter Procedures Procedure Name Priority Date/Time Associated Diagnosis Comments XR OUTSIDE IMAGES 09/03/2024 11:09 AM EDT documented in this encounter Results * XR OUTSIDE IMAGES (09/03/2024 11:09 AM EDT) Anatomical Region Laterality Modality Radiographic Cheryl ging 09/03/2024 11:0 9 AM EDT External Provider IMG XR PROCEDURES Final Result documented in this encounter Visit Diagnoses Not on filedocumented in this encounter Additional Health Concerns Infection Onset Date Last Indicated Resolved Time C. difficile 11/04/2024 11/04/2024 12/18/2024 7:20 PM EST COVID-19 Rule-Out 01/02/2025 01/02/2025 01/02/2025 11:10 AM EST documented as of this encounter Care Teams Installer Soft Top Relationship Specialty Start Date End Date Pcp, Smiley [address] [place] [address] PCP - General Family Medicine 10/20/23 12/21/24 Param Eng, [facility] [address] [place] [address] PCP - General 12/22/24 Anh Harvey LPN [employer] [place] [address] None TCM Nurse 01/19/25 01/19/25 documented as of this encounter
--- OUTSIDE RECORDS SUMMARY | 2025-01-23 07:05 | XMS_ITS ---
Author Organization [facility] Address [address] [place] [address] Care Team Providers Care Strawberry Grower Name Role Phone Param Eng DO Primary Care Provider Transplant Episode Liver Recipient [facility] ([place], [place]) [facility] Organ Received: Liver Transplanted on 01/03/2025 Marked as Active Follow-up on 01/03/2025 Liver CoordinatorChmessi Blankenship RN Phone: N/A Fax: N/A Email: N/A [place] Organ Diagnosis Organ Primary Contributory Liver Alcohol-Associated C irrhosis Without Acute Alcohol-Associated Hepatitis Donor Information Organ ABO Source Meets Risk Criteria HLA Match Mismatches Cross Match Liver Transplanted A DCD No A: B: DR: Liver Donor Serology Results Anti-CMV CMV IgG: Positive EBV IgG EBV VCA IgG: Positive Anti-HBcAb HBC Total: Negative HBsAg HBsAg: Negative HBV DNA HBV JULIENNE: Negative Anti-HCV HCV: Negative Anti-HIV I/II HIV-1: Negative Anti-HTLV I/II HTLV: Negative RPR/VDRL RPR: Negative EBV IgM EBV VCA IgM: Negative HBsAb HBsAb: Not Done EBNA No results on file SARS CoV-2 No results on file HCV JULIENNE HCV JULIENNE: Negative HIV JULIENNE HIV JULIENNE: Negative HBV JULIENNE HBV JULIENNE: Negative Care Team Name Role Phone Fax Email Renee Blankenship RN Liver Coordinator N/A N/A N/A Events Post-Transplant Pre-Transplant Admitted: 01/02/2025 Referred: 10/20/2024 Transplanted: 01/03/2025 Evaluation began: 5 Discharged: 01/16/2025 Committee: 12/22/2024 Center waitlisted: 5 Appointments (12/24/2024 - 02/23/2025) When With Visit Type Description 12/24/2024 Transplant - [facility], C [facility] Decomp ensation of cirrhosis of liver (CMS/HCC); Hepatic encephalopathy (CMS/HCC); Severe alcohol use disorder, in sustained remission; Anemia, unspecified type 12/30/2024 Transplant - Alexand er, C LAB Decompensation of cirrhosis of liver (CMS/HCC); Portal hypertension (CMS/HCC); Severe alcohol use disorder, in sustained remission; Alcohol use disorder, severe, dependence (CMS/HCC) 12/30/2024 Transplant - Deidra Martinez Office Vi sit - Transplant Weakness (Primary Dx); Insomnia, unspecified type; Awaiting liver transplant; Decompensation of cirrhosis of liver (CMS/HCC); Primary insomnia; Depressive disorder 01/20/2025 Transplant - Chacha Heard APRN; Midnfkdczw-Jcrzu-Attcoh y-Paul Initial Post-Op Liver replaced by transplant (Primary Dx); Encounter for long-term (current) use of high-risk medication; Aftercare following organ transplant; Immunosuppression (CMS/HCC); Physical debility; Moderate protein-calorie malnutrition (CMS/HCC); Biliary stricture of transplanted liver (CMS/HCC); Other secondary hypertension; Anemia, unspecified type; Hypomagnesemia; Benign essential tremor 01/20/2025 Transplant - Alexand er, C LAB Encounter for long-term (current) use of medications; Status post liver transplantation (CMS/HCC) 01/23/2025 Transplant LAB 01/23/2025 Transplant - Ujthrwdlbm-Aphtl-Lw rgery-Paul Post-op
--- OUTSIDE RECORDS SUMMARY | 2025-01-23 07:05 | XMS_ITS | Encounter Summary ---
Author Organization Healthcare Address [address] [place] [address] Care Team Providers Care Community Health Advocate Name Role Phone Pcp, No Primary Care Provider Unavailabl Param Hernandes DO Primary Care Provider [phone] Anh Harvey LPN Unavailable Unavailable Encounter Details Date Type Department Care Team (Late st Contact Info) Description 09/03/2024 Orders Only External Location [address] [place] [phone] Provider, External Social History Tobacco Use Types [...] Description 01/23/2025 8:40 AM EST Office Visit [facility] [address] [place] [address] Jgyixkrwpi-Umkif-Xkc rosemary-Paul 03/06/2025 11:10 AM EST Appointment [facility] S Endoscopy [address] [place] [address] Natalya Valentine MD [address] [place] [address] documented as of this encounter Procedures Procedure Name Priority Date/Time Associated Diagnosis Comments US OUTSIDE IMAGES 09/03/2024 2:20 PM EDT documented in this encounter Results * US OUTSIDE IMAGES (09/03/2024 2:20 PM EDT) Anatomical Region Laterality Modality Ultrasound 09/03/2024 2:20 PM EDT us External Provider IMG US PROCEDURES Final Result documented in this encounter Visit Diagnoses Not on filedocumented in this encounter Additional Health Concerns Infection Onset Date Last Indicated Resolved Time C. difficile 11/04/2024 11/04/2024 12/18/2024 7:20 PM EST COVID-19 Rule-Out 01/02/2025 01/02/2025 01/02/2025 11:10 AM EST documented as of this encounter Care Teams Community Health Advocate Relationship Specialty Start Date End Date Pcp, [place] [address] PCP - General Family Medicine 10/20/23 12/21/24 Param Eng, [facility] [address] [place] [address] PCP - General 12/22/24 Anh Harvey LPN [employer] [place] [address] None TCM Nurse 01/19/25 01/19/25 documented as of this encounter
--- OUTSIDE RECORDS SUMMARY | 2025-01-23 07:06 | XMS_ITS | Encounter Summary ---
Author Organization Healthcare Address [address] [place] [id number] Care Team Providers Care Global Security Architect Name Role Phone Velasquez Param Augie HORTON Primary Care Provider [phone] Encounter Details Date Type Department Care Team (Late st Contact Info) Description 01/20/2025 Clinical Support [facility] [address] [facility] [address] [place] [address] Kelvin Ibarra, RD [facility] - CLINICAL NUTRITION [address] [place] [address] Social History Tobacco Use Types Packs/Day Years [...] or relatives? Twice a week 01/02/2025 Attends [employer] Not on file 01/02 Do you belong to any clubs o r organizations such as alevism groups, unions, fraternal or athletic groups, or [...] housing, medical care, and heating? Hard 01/02/2025 [facility] - Occupational [...] any time in the past 12 m [facility], were you homeless or living in a snf (including now)? No 01/02/2025 [facility] Utilities Answer Date Recorded In the past [...] drink first t edgardo in the morning (EYE-LETTERER) to steady your nerves or to get [...] encounter Miscellaneous Notes * Clinician Note - Kelvin Ibarra, RD - 01/20/2025 3:16 PM EST Transplant Clinic Nutrition Evaluation Evaluation Type: Initial Post-Op Assessment Organ Group: Liver HPI Cesar Hearn Maggi is a 45 y.o. 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 Past Medical/Surgical History Past Medical History[1] Surgical History[2] Labs Lab Results Component Value Date GLUCOSE 62 (L) 01/20/2025 CALCIUM 8.7 (L) 01/20/2025 NA 143 01/20/2025 K 4.2 01/20/2025 CO2 23 01/20/2025 CL 108 (H) 01/20/2025 BUN 25 (H) 01/20/2025 CREATININE 0.92 01/20/2025 Lab Results Component Value Date CALCIUM 8.7 (L) 01/20/2025 PHOS 4.0 01/16/2025 Lab Results Component Value Date ALT 64 (H) 01/20/2025 AST 25 01/20/2025 GGT 184 (H) 01/20/2025 ALKPHOS 98 01/20/2025 BILITOT 3.4 (H) 01/20/2025 Lab Results Component Value Date CHOL 83 10/20/2024 Lab Results Component Value Date HDL 27 (L) 10/20/2024 Lab Results Component Value Date LDLCALC 40 10/20/2024 Lab Results Component Value Date TRIG 72 10/20/2024 Lab Results Component Value Date CRATIO 3 10/20/2024 Lab Results Component Value Date HGBA1C <4.0 10/21/202401/20: Low ma.5 Medications Reviewed current outpatient medications. Pertinent medications include: Current Medications[3] Nutrition History Previous Visit with Dietitian? Yes, TXP RD's Home Diet: Post-Transplant Appetite: Good Nutrition-Related Symptoms: Early Satiety and Taste Changes Food Allergies: No Known Food Allergies Food Preferences: No cultural or temple food preferences Fluid Retention: 2+ BLLE edema - per provider assessment Additional Information: Visited patient in clinic today. Patient accompanied by his at time ofvisit. Patient reports good appetite and intake. He states that he is eating 3 regular meals, snacks between meals, and 3 Boost Glucose Control shakes/day. He is noted with an 11 lb weight loss in 4 days since hospital discharge on 01/16/25. However he is also noted with lower extremity edema and fluid changes are likely skewing his weight. RD will continue to monitor his weight trends in clinic. He does report some noted early satiety and taste changes at times. RD recommended that patient focus on continued consistent intake and ongoing use of protein supplements x 3/day as he continues to re-establish/improve his post-transplant nutrition status. RD spoke with patient about prioritizing calorie and protein with PO intake to meet his increased needs and provided recommendations for high calorie/high protein foods. Patient is also noted with low magnesium upon review of labs today. He was started on magnesium supplementation and RD also provided patient with a list of magnesium rich foods that he can include inhis diet as well. Patient and had some post-transplant diet related questions. RD answered questions to their satisfaction. RD will continue to monitor patient's nutrition status and follow up with him in clinic as needed. Anthropometric Measurements Height: 195.6 cm Current Weight: 91.3 kg [place] Body Weight: 94.5 kg (97%) Adjusted Body Weight: N/A BMI: 23.9 Weight Evaluation: Normal (BMI 18.5 - 24.9) Weight History: Wt Readings from Last 12 Encounters: 01/20/25 91.3 kg (201 lb 4.5 [...] 10/20/24 117 kg (257 lb 15 oz) 01/20: Noted weight fluctuations. Likely fluid related. Will continue to monitor weight trends in clinic as able. Estimated Needs Kcal/K - 35 Kcal recommended: 2739 - 3196 Kcal needs based on: Current Body Weight Grams Protein/K.5 - 2.0 Grams Protein recommended: 137 - 183 Protein needs based on: Current Body Weight Nutrition Diagnosis Increased nutrient needs calories and protein related to increased metabolic demand/recovery as evidence by patient with decompensated liver cirrhosis s/p OLT on 01/03/25. Status of Nutrition Diagnosis: New Nutrition Interventions - Education: post-transplant - Nutrition education materials: provided prior to inpatient discharge. - Patient verbalized understanding - Oral nutrition supplements reviewed. Recommend Boost Glucose Control (patient's current at home shake) x 3 day. Alternative shakes are optional as well (I.e. Boost Plus or other patient preferred supplement). Monitoring and Evaluation RD contact information provided to patient. RD available for further consult as needed. Kelvin Ibrara, RD, LD [1] Past Medical History: Diagnosis Date Anxiety Ascites Cirrhosis (CMS/HCC) Depression Enterocolitis due to Clostridium difficile, not specified as recurrent 11/04/2024 Esophageal varices GERD (gastroesophageal reflux disease) Hepatic encephalopathy (CMS/HCC) Hypertension Patient on waiting list for liver transplant 12/30/2024 SBP (spontaneous bacterial peritonitis) Tobacco use disorder [2] Past Surgical History: Procedure Laterality Date VASECTOMY [3] Current Outpatient Medications: acetaminophen (Tylenol) 500 MG tablet, Take 1 tablet by mouth every 6 hours as needed for headachesor pain. Max 2000 mg per 24 hours., Disp: , Rfl: amLODIPine (Norvasc) 10 MG tablet, Take 1 tablet by mouth daily., Disp: 30 tablet, Rfl: 5 aspirin 81 MG EC tablet, Take 1 tablet by mouth daily., Disp: 30 tablet, Rfl: 11 carvedilol (Coreg) 25 MG tablet, Take 1 tablet by mouth 2 times a day., Disp: 60 tablet, Rfl: 2 ergocalciferol (Vitamin D-2) 1.25 MG (56310 UT) capsule, Take 1 capsule by mouth 1 time per week. Fridays, Disp: 4 capsule, Rfl: 1 escitalopram (Lexapro) 10 MG tablet, Take 1 tablet by mouth daily., Disp: 30 tablet, Rfl: 3 ferrous sulfate 324 MG tablet delayed-release, Take 1 tablet by mouth daily with breakfast. Do not crush, chew, or split., Disp: 30 tablet, Rfl: 0 fluconazole (Diflucan) 200 MG tablet, Take 1 tablet by mouth daily for 17 days., Disp: 17 tablet, Rfl: 0 magnesium oxide (Mag-Ox) 400 MG tablet, Take 1 tablet by mouth 2 times a day., Disp: 60 tablet, Rfl: 2 methocarbamol (Robaxin) 500 MG tablet, Take 1 tablet by mouth 3 times a day as needed for muscle spasms., Disp: 60 tablet, Rfl: 1 Multiple Vitamins-Minerals (Mens Multi Health Formula) tablet, Take 1 tablet by mouth daily., Disp:, Rfl: mycophenolate (CellCept) 250 MG capsule, Take 4 capsules by mouth 2 times a day. Z94.4. Txp Date: 01/03/25, Disp: , Rfl: nutrional drink glucose control (Boost Glucose Control) liquid liquid, Drink 1 supplement up to 3 times a day or As Directed as a nutritional supplement. Flavor preference: per patient. Please dispense up to 4 cases at a time per patient request, Disp: 237 mL, Rfl: 11 pantoprazole (Protonix) 40 MG EC tablet, Take 1 tablet by mouth daily. Do not crush, chew, or split., Disp: 30 tablet, Rfl: 2 predniSONE (Deltasone) 10 MG tablet, Take 6 tablets by mouth daily for 5 days, THEN 5 tablets dailyfor 5 days, THEN 4 tablets daily for 5 days, THEN 3 tablets daily for 5 days, THEN 2 tablets daily for 5 days, THEN 1 tablet daily., Disp: 130 tablet, Rfl: 0 rOPINIRole (Requip) 0.25 MG tablet, Take 1 tablet by mouth nightly., Disp: 30 tablet, Rfl: 2 senna-docusate sodium (Senokot-S) 8.6-50 MG tablet, Take 1 tablet by mouth 2 times a day as needed for constipation., Disp: 60 tablet, Rfl: 0 sulfamethoxazole-trimethoprim (Bactrim) 400-80 MG tablet, Take 1 tablet by mouth daily., Disp: 30 tablet, Rfl: 5 tacrolimus 1 MG PO capsule, Take 3 capsules by mouth every morning AND 3 capsules every evening. Z94.4. transplant date 01/03/25., Disp: , Rfl: traZODone (Desyrel) 50 MG tablet, Take 1 tablet by mouth nightly., Disp: 90 tablet, Rfl: 1 ursodiol (Actigall) 300 MG capsule, Take 2 capsules by mouth 2 times a day., Disp: 120 capsule, Rfl: 5 valGANciclovir (Valcyte) 450 MG tablet, Take 1 tablet by mouth daily. Do not crush or chew., Disp: 30 tablet, Rfl: 2 documented in this encounter Plan of Treatment Upcoming Encounters Date Type Department Care Team (Late st Contact Info) Description 01/23/2025 8:40 AM EST Office Visit [facility] [address] [place] [address] Aoqnfzlebg-Qroxo-Svm rosemary-Paul 03/06/2025 11:10 AM EST Appointment P[facility] S Endoscopy [address] [place] [address] Natalya Valentine MD [address] [place] [address] documented as of this encounter [...] documented as of this encounter Care Teams Global Security Architect Relationship Specialty Start Date End Date Param Eng DO [address] [facility] [address] [place] [address] PCP - General 12/22/24 documented as of this encounter
--- OUTSIDE RECORDS SUMMARY | 2025-01-23 07:07 | XMS_ITS | Encounter Summary ---
Author Organization [facility] Address [address] [place] [address] Care Team Providers Care Paint Stockman Name Role Phone Velasquez Param Augie HORTON Primary Care Provider [phone] Encounter Details Date Type Department Care Team (Latest Contact Info) Description 01/20/2025 Travel Social History Tobacco Use Types Packs/Day [...] or relatives? Twice a week 01/02/2025 Attends Evangelical Services Not on file 01/02 Do you belong to any clubs o r organizations such as mormon groups, unions, fraternal or athletic groups, or [...] housing, medical care, and heating? Hard 01/02/2025 [facility] - [...] any time in the past 12 m [facility], were you homeless or living in a custodial (including now)? No 01/02/2025 [facility] Utilities Answer Date Recorded In the past [...] drink first t edgardo in the morning (EYE-SIGNALS OFFICER) to steady your nerves or to get [...] Health Questionnaire-2 Score 2 01/20/2025 7:11 AM Ranid Turner RN * Question Answer Date of [...] Reyna RN documented as of this encounter Plan of Treatment Upcoming Encounters Date Type Department Care Team (Late st Contact Info) Description 01/23/2025 8:40 AM EST Office [facility] [address] [place] [address] Lyfabchcvl-Lfcmi-Lnz rosemary-Paul 03/06/2025 11:10 AM EST Appointment [facility] [address] [place] [address] Natalya Valentine MD [address] [place] [address] documented as of this encounter Visit Diagnoses [...] documented as of this encounter Care Teams Paint Stockman Relationship Specialty Start Date End Date Param Eng DO [address] [place] [address] [place] [address] PCP - General 12/22/24 documented as of this encounter
--- OUTSIDE RECORDS SUMMARY | 2025-01-23 07:07 | XMS_ITS | Encounter Summary ---
Author Organization [facility] Address [address] [place] [address] Care Team Providers Care Manager Procurement Name Role Phone VelasquezParam Augie HORTON Primary Care Provider [phone] Anh Harvey LPN Unavailable Unavailable Reason for Visit * Reason Comments TCM Encounter Details Date Type Department Care Team (Late st Contact Info) Description 01/19/2025 Patient Outreach [facility] [address] [facility], [address] [place] [address] Anh Harvey LPN [employer] [place] [address] None TCM Social History Tobacco Use Types Packs/Day Years [...] or relatives? Twice a week 01/02/2025 Attends Temple Services Not on file 01/02 Do you belong to any clubs o r organizations such as amish groups, unions, fraternal or athletic groups, or [...] housing, medical care, and heating? Hard 01/02/2025 [facility] - Occupational [...] living in a mcc (including now)? No 01/02/2025 [facility] Utilities Answer Date Recorded In the past 12 months has th e [employer], gas, oil, or water [employer] threatened to shut off services in your [...] drink first t edgardo in the morning (EYE-WRAP YARN SORTER) to steady your nerves or to get rid of a hangover? 1 01/02/2025 CAGE Questionnaire Score 4 025 Sex and Gender Information Value Date Recorded Sex Assigned at Not on file Legal Sex Male 2:45 PM EDT Gender Identity Not on file Sexual Orientation Not on file documented as of this encounter Miscellaneous Notes * Progress Notes - Anh Harvey LPN - 01/19/2025 11:17 AM EST 01/19/2025: Enrollment error. No call per [employer] [place] Page due to patient following up with transplant tomorrow 01/20/2025. ARSLAN encounter closed. documented in this encounter Plan of Treatment Upcoming Encounters Date Type Department Care Team (Late st Contact Info) Description 01/23/2025 8:40 AM EST Office Visit [facility] [address] [place] [phone] Wcabpvumic-Jmvmo-Guk rosemary-Paul 03/06/2025 11:10 AM EST Appointment [facility] [address] [place] [address] Natalya Valentine MD [address] [place] [phone] documented as of this encounter Visit Diagnoses [...] documented as of this encounter Care Teams Manager Procurement Relationship Specialty Start Date End Date Param Eng DO [address] [facility] [address] [place] [address] PCP - General 12/22/24 Anh Harvey LPN VALUE[employer] [place] [address] None TCM Nurse 01/19/25 01/19/25 documented as of this encounter
--- OUTSIDE RECORDS SUMMARY | 2025-01-23 07:07 | XMS_ITS | Encounter Summary ---
Author Organization [facility] Address [address] [place] [address] Care Team Providers Care Employee Welfare Manager Name Role Phone Velasquez Param Augie HORTON Primary Care Provider [phone] Encounter Details Date Type Department Care Team (Latest Contact Info) Description 2025 Travel Social History Tobacco Use Types Packs/Day [...] or relatives? Twice a week 01/02/2025 Attends Alevism Services Not on file 01/02 Do you [...] housing, medical care, and heating? Hard 01/02/2025 [facility] - [...] were you homeless or living in a longterm (including now)? No 01/02/2025 [facility] Utilities Answer Date Recorded In the [...] drink first t edgardo in the morning (EYE-COLORIST DYER) to steady your nerves or to get [...] Precautions Fall risk;Environmen adrianna surveillance 2025 8:00 PM Andreina Ireland RN * Calculated C-SSRS Risk Score (Lifetime/Recent) Answer Date of Assessment Author No Risk Indicated 2025 8:00 PM Andreina Perea RN * Question Answer Date of Assessment Author 1. Wish to be (Past 1 Month) No 2025 8:00 PM EST Freiburger, Candie ca, RN 2. Non-Specific Active Suici joceline Thoughts (Past 1 Month) No 2025 8:00 PM Kimberly Ireland, DEMETRIA 6. Suicidal Behavior (Lifetime) No 8:00 PM Andreina Ireland, DEMETRIA documented as of this encounter Mental Status * Question Answer Entry Date Author Precautions Fall risk;Environmen adrianna surveillance 2025 8:00 PM Andreina Ireland, DEMETRIA documented in this encounter Plan of Treatment Upcoming Encounters Date Type Department Care Team (Late st Contact Info) Description 01/23/2025 8:40 AM EST Office Visit [facility] [address] [place] [address] Aehaxwbtqo-Jtzua-Esd rosemary-Paul 03/06/2025 11:10 AM EST Appointment [facility] [address] [place] [address] Natalya Valentine MD [address] [place] [address] documented as of this encounter Visit Diagnoses [...] documented as of this encounter Care Teams Employee Welfare Manager Relationship Specialty Start Date End Date Param Eng DO [address] [place] [address] PCP - General 12/22/24 documented as of this encounter
--- OUTSIDE RECORDS SUMMARY | 2025-01-23 07:07 | XMS_ITS | Clinical Summary ---
Author Organization [facility] Address [address] [place] [address] Care Team Providers Care Communication Lecturer Name Role Phone Param Eng Augie HORTON Primary Care Provider [phone] Allergies Active Allergy Reactions Criticality Noted Date Comments Amoxicillin Hives,Rash Medium 09/18/2002 Childhood allergy Medications * This document contains information received from the source organization and may not represent a complete record from that organization. escitalopram (Lexapro) 10 MG tablet Take 1 tablet by mouth daily. 30 tablet 3 025 Active traZODone (Desyrel) 50 MG tabletIndications :Insomnia, unspecified type Take 1 tablet by mouth nightly. 90 tablet 1 025 Active valGANciclovir (Valcyte) 450 MG tabletIndications :Liver replaced by transplant Take 1 tablet by mouth daily. Do not crush or chew. 30 tablet 2 025 Active acetaminophen (Tylenol) 500 MG tablet Take 1 tablet by mouth every 6 hours as needed for headaches or pain. Max 2000 mg per 24 hours. 025 Active aspirin 81 MG EC tablet Take 1 tablet by mouth daily. 30 tablet 11 025 Active senna-docusate sodium (Senokot-S) 8.6-50 MG tablet Take 1 tablet by mouth 2 times a day as needed for constipation. 60 tablet 025 Active sulfamethoxazole- trimethoprim (Bactrim) 400-80 MG tabletIndications :Liver replaced by transplant Take 1 tablet by mouth daily. 30 tablet 5 Active carvedilol (Coreg) 25 MG tablet Take 1 tablet by mouth 2 times a day. 60 tablet 2 Active Multiple Vitamins-Minerals (Mens Multi Health Formula) tablet Take 1 tablet by mouth daily. Active amLODIPine (Norvasc) 10 MG tablet Take 1 tablet by mouth daily. 30 tablet 5 Active ergocalciferol (Vitamin D-2) 1.25 MG (42166 UT) capsule Take 1 capsule by mouth 1 time per week. Fridays 4 capsule 1 Active fluconazole (Diflucan) 200 MG tabletIndications :Liver replaced by transplant Take 1 tablet by mouth daily for 17 days. 17 tablet 025 2024 Active methocarbamol (Robaxin) 500 MG tablet Take 1 tablet by mouth 3 times a day as needed for muscle spasms. 60 tablet 1 Active predniSONE (Deltasone) 10 MG tablet Take 6 tablets by mouth daily for 5 days, THEN 5 tablets daily for 5 days, THEN 4 tablets daily for 5 days, THEN 3 tablets daily for 5 days, THEN 2 tablets daily for 5 days, THEN 1 tablet daily. 130 tablet 025 2025 Active nutrional drink glucose control (Boost Glucose Control) liquid liquid Drink 1 supplement up to 3 times a day or As Directed as a nutritional supplement. Flavor preference: per patient. Please dispense up to 4 cases at a time per patient request 237 mL 11 Active pantoprazole (Protonix) 40 MG EC tablet Take 1 tablet by mouth daily. Do not crush, chew, or split. 30 tablet 2 Active ursodiol (Actigall) 300 MG capsule Take 2 capsules by mouth 2 times a day. 120 capsule 5 Active magnesium oxide (Mag-Ox) 400 MG tablet Take 1 tablet by mouth 2 times a day. 60 tablet 2 Active rOPINIRole (Requip) 0.25 MG tabletIndications :Restless Leg Syndrome Take 1 tablet by mouth nightly. 30 tablet 2 Active mycophenolate (CellCept) 250 MG capsuleIndication s:Liver replaced by transplant,Encoun ter for long-term (current) use of high-risk medication,Immuno suppression (CMS/HCC) Take 4 capsules by mouth 2 times a day. Z94.4. Txp Date: 01/03/25 Active tacrolimus 1 MG PO capsuleIndication s:Liver Transplant Status Take 3 capsules by mouth every morning AND 3 capsules every evening. Z94.4. transplant date 01/03/25. 2025 Active traZODone (Desyrel) 50 MG tabletIndications :Insomnia, unspecified type Take 0.5 tablets by mouth nightly. 45 tablet 1 2024 Discontinued(R eorder) buPROPion SR (Wellbutrin SR) 150 MG 12 hr tabletIndications :Tobacco use disorder Take 1 tablet by mouth daily for 3 days, THEN 1 tablet 2 times a day. Do not crush, chew, or split. 123 tablet 1 2024 Discontinued ciprofloxacin (Cipro) 500 MG tabletIndications :Spontaneous bacterial peritonitis Take 1 tablet by mouth daily. 30 tablet 2 2024 Discontinued furosemide (Lasix) 20 MG tablet Take 1 tablet by mouth daily. 90 tablet 3 2024 Discontinued lactulose (Chronulac) 10 GM/15ML solution Take 15 mL by mouth 3 times a day. 1350 mL 3 2024 Discontinued spironolactone (Aldactone) 50 MG tablet Take 1 tablet by mouth daily. 30 each 3 2024 Discontinued carvedilol (Coreg) 6.25 MG tablet Take 1 tablet by mouth 2 times a day. 60 tablet 3 2024 Discontinued escitalopram (Lexapro) 10 MG tablet Take 0.5 tablets by mouth daily. 15 tablet 3 2024 Discontinued(R eorder) nutrional drink glucose control (Boost Glucose Control) liquid liquid Take 237 mL by mouth 2 times a day. 23183 mL 3 2024 Discontinued(D uplicate order) rifAXIMin (Xifaxan) 550 MG tabletIndications :Hepatic encephalopathy (CMS/HCC) Take 1 tablet by mouth 2 times a day. 180 tablet 3 025 2024 Discontinued Multiple Vitamins-Minerals (Mens Multi Health Formula) tablet Take by mouth. 2024 Discontinued pantoprazole (Protonix) 40 MG EC tablet Take 1 tablet by mouth 2 times a day. Do not crush, chew, or split. 60 tablet 025 2024 Discontinued ferrous sulfate 324 MG tablet delayed-release Take 1 tablet by mouth daily with breakfast. Do not crush, chew, or split. 30 tablet 025 2024 spironolactone (Aldactone) 50 MG tablet Take 1 tablet by mouth daily. 2024 Discontinued furosemide (Lasix) 20 MG tablet Take 1 tablet by mouth daily. 2024 Discontinued mycophenolate (CellCept) 250 MG capsule Take 4 capsules by mouth 2 times a day. Z94.4. Txp Date: 01/03/25 240 capsule 2 2024 Discontinued tacrolimus 1 MG PO capsuleIndication s:Liver Transplant Status Take 2 capsules by mouth 2 times a day. Z94.4. transplant date 01/03/25 120 capsule 2 025 2024 Discontinued fluconazole (Diflucan) 200 MG tabletIndications :Liver replaced by transplant Take 1 tablet by mouth daily. 21 tablet 2024 Discontinued predniSONE (Deltasone) 5 MG tablet Take 1 tablet by mouth daily. 30 tablet 2 2024 Discontinued Misc. Devices (Pill Box 7 Day) misc Pill box 1 each 2024 Discontinued pantoprazole (Protonix) 40 MG EC tablet Take 1 tablet by mouth 2 times a day. Do not crush, chew, or split. 30 tablet 025 2024 Discontinued mycophenolate (CellCept) 250 MG capsule Take 3 capsules by mouth 2 times a day. Z94.4. Txp Date: 01/03/25 180 capsule 2 2025 Discontinued tacrolimus 1 MG PO capsuleIndication s:Liver Transplant Status Take 1 capsule by mouth 2 times a day. Z94.4. transplant date 01/03/25 60 capsule 2 025 2024 Discontinued ursodiol (Actigall) 300 MG capsule Take 1 capsule by mouth 2 times a day. 60 capsule 5 025 2024 Discontinued levoFLOXacin (Levaquin) 750 MG tabletIndications :Liver replaced by transplant Take 1 tablet by mouth daily for 3 doses. 3 tablet 025 2024 Discontinued tacrolimus 1 MG PO capsuleIndication s:Liver Transplant Status Take 2 capsules by mouth every morning AND 1 capsule every evening. Z94.4. transplant date 01/03/25. 90 capsule 2 025 2024 Discontinued levoFLOXacin (Levaquin) 750 MG tabletIndications :Liver replaced by transplant Take 1 tablet by mouth daily for 2 doses. 2 tablet 025 2024 Discontinued Active Problems Problem Noted Date Diagnosed Date Abdominal distension 01/05/2025 Assessment & Plan (01/05/2025 11:13 AM EST): Abdomen remains taut but bowel sounds present and patient reports passing flatus Total of 910mL sanguinous drainage via MOLLY drains over past 24hr Continue to perform serial abdominal exams Keep NPO for possible return to OR for washout per txp team Coagulopathy 01/04/2025 Assessment & Plan (01/05/2025 11:13 AM EST): Lab Results Component Value Date HGB 8.8 (L) 01/05/2025 , Lab Results Component Value Date HCT 25.5 (L) 01/05/2025 Received 2u PRBC overnight Transfuse as appropriate for Hgb>8 and INR<2 Continue vitamin K Will continue to trend Assessment & Plan (01/04/2025 10:20 AM EST): Lab Results Component Value Date HGB 6.7 (L) 01/04/2025 , Lab Results Component Value Date HCT 20.3 (L) 01/04/2025 Received 1u PRBC and 1u FFP overnight Hgb 6.7 and INR 2 this AM; ordered 2u PRBC and 1u FFP MA<40 on TEG; ordered 1u platelets Transfuse as appropriate for Hgb>8 and INR<2 Continue vitamin K Will continue to trend NINA (acute kidney injury) 01/04/2025 Assessment & Plan (01/05/2025 11:13 AM EST): Baseline Cr ~0.8 Creatinine, Plasma Date Value Ref Range Status 01/05/2025 1.90 (H) 0.70 - 1.20 mg/dL Final Consider renal U/S as appropriate Monitor renal function daily Avoid nephrotoxins, avoid NSAIDs, renally dose medications Assessment & Plan (01/04/2025 10:20 AM EST): Baseline Cr ~0.8 Creatinine, Plasma Date Value Ref Range Status 01/04/2025 1.64 (H) 0.70 - 1.20 mg/dL Final Consider renal U/S as appropriate Monitor renal function daily Avoid nephrotoxins, avoid NSAIDs, renally dose medications GERD (gastroesophageal reflux disease) Assessment & Plan (01/05/2025 11:13 AM EST): Continue home PPI Assessment & Plan (01/04/2025 9:19 AM EST): Continue home PPI Assessment & Plan (01/03/2025 3:54 PM EST): Continue home PPI Anxiety 01/03/2025 Assessment & Plan (01/05/2025 11:13 AM EST): Continue home Lexapro Assessment & Plan (01/04/2025 9:19 AM EST): Continue home Lexapro Assessment & Plan (01/03/2025 3:54 PM EST): Continue home Lexapro Thrombocytopenia 01/03/2025 Assessment & Plan (01/05/2025 11:13 AM EST): Plt count 61 postop Plt 48 today Transfuse for plt>20 Will continue to monitor Assessment & Plan (01/04/2025 10:20 AM EST): Plt count 61 postop Plt 51 today Transfuse for plt>20 Will continue to monitor Assessment & Plan (01/03/2025 3:54 PM EST): Plt count 61 postop Transfuse for plt>20 Will continue to monitor Hypotension 01/03/2025 Assessment & Plan (01/03/2025 11:37 AM EST): Continue levophed gtt as needed Elevated INR 01/03/2025 Assessment & Plan (01/05/2025 11:13 AM EST): Lab Results Component Value Date HGB 8.8 (L) 01/05/2025 , Lab Results Component Value Date HCT 25.5 (L) 01/05/2025 Received 2u PRBC overnight Transfuse as appropriate for Hgb>8 and INR<2 Continue vitamin K Will continue to trend Assessment & Plan (01/04/2025 10:20 AM EST): Lab Results Component Value Date HGB 6.7 (L) 01/04/2025 , Lab Results Component Value Date HCT 20.3 (L) 01/04/2025 Received 1u PRBC and 1u FFP overnight Hgb 6.7 and INR 2 this AM; ordered 2u PRBC and 1u FFP MA<40 on TEG; ordered 1u platelets Transfuse as appropriate for Hgb>8 and INR<2 Continue vitamin K Will continue to trend Assessment & Plan (01/03/2025 3:54 PM EST): INR 2.3 Ordered 1u FFP Continue vitamin K Will continue to trend Transfuse for INR<2 Essential (primary) hypertension 11/04/2024 Assessment & Plan (01/05/2025 11:13 AM EST): Increased coreg to 25mg BID PRN labetalol and hydralazine for SBP>160 Assessment & Plan (01/04/2025 10:20 AM EST): Increased coreg to 12.5mg BID PRN labetalol and hydralazine for SBP>160 Assessment & Plan (01/03/2025 3:54 PM EST): Continue home coreg as appropriate PRN labetalol for SBP>160 SBP (spontaneous bacterial peritonitis) 10/25/19 Assessment & Plan (01/05/2025 11:13 AM EST): Hx of On prophylactic cipro prior to translant Assessment & Plan (01/04/2025 9:19 AM EST): Hx of On prophylactic cipro prior to translant Assessment & Plan (01/03/2025 3:54 PM EST): Hx of On prophylactic cipro prior to translant Anemia 10/21/2024 Assessment & Plan (01/05/2025 11:13 AM EST): Lab Results Component Value Date HGB 8.8 (L) 01/05/2025 , Lab Results Component Value Date HCT 25.5 (L) 01/05/2025 Received 2u PRBC overnight Transfuse as appropriate for Hgb>8 and INR<2 Continue vitamin K Will continue to trend Assessment & Plan (01/04/2025 10:20 AM EST): Lab Results Component Value Date HGB 6.7 (L) 01/04/2025 , Lab Results Component Value Date HCT 20.3 (L) 01/04/2025 Received 1u PRBC and 1u FFP overnight Hgb 6.7 and INR 2 this AM; ordered 2u PRBC and 1u FFP MA<40 on TEG; ordered 1u platelets Transfuse as appropriate for Hgb>8 and INR<2 Continue vitamin K Will continue to trend Assessment & Plan (01/03/2025 3:54 PM EST): Lab Results Component Value Date HGB 8.3 (L) 01/03/2025 , Lab Results Component Value Date HCT 26.1 (L) 01/03/2025 Will continue to monitor Transfuse as appropriate for Hgb>8 Tobacco use disorder, continuous 10/20/2024 Assessment & Plan (01/05/2025 11:13 AM EST): Continue home Wellbutrin Assessment & Plan (01/04/2025 10:20 AM EST): Continue home Wellbutrin Assessment & Plan (01/03/2025 3:54 PM EST): Continue home Wellbutrin as appropriate Insomnia 10/20/2024 Assessment & Plan (01/05/2025 11:13 AM EST): Continue home trazodone PRN Assessment & Plan (01/04/2025 10:20 AM EST): Continue home trazodone PRN Assessment & Plan (01/03/2025 3:54 PM EST): Continue home trazodone as appropriate Decompensation of cirrhosis of liver 10/18/2024 Assessment & Plan (01/05/2025 11:13 AM EST): Hx of ETOH cirrhosis c/b ascites, HE, EV, SBP S/p OLT Pre-Op MELD 27 Transfused 8uPRBC, 8uFFP, 1uPlt, 500mL Albumin, 5L Crystalloid intra-op; ascites ~ 1.5L & EBL 4.8L Drains per primary Continue abx Anti-rejection and immunosuppressive medications per primary Assessment & Plan (01/04/2025 9:19 AM EST): Hx of ETOH cirrhosis c/b ascites, HE, EV, SBP S/p OLT Pre-Op MELD 27 Transfused 8uPRBC, 8uFFP, 1uPlt, 500mL Albumin, 5L Crystalloid intra-op; ascites ~ 1.5L & EBL 4.8L 25g albumin Q8 Drains per primary Continue abx Anti-rejection and immunosuppressive medications per primary Assessment & Plan (01/03/2025 3:54 PM EST): Hx of ETOH cirrhosis c/b ascites, HE, EV, SBP S/p OLT Pre-Op MELD 27 Transfused 8uPRBC, 8uFFP, 1uPlt, 500mL Albumin, 5L Crystalloid intra-op; ascites ~ 1.5L & EBL 4.8L 25g albumin Q8 Drains per primary Continue abx Anti-rejection and immunosuppressive medications per primary Resolved Problems Problem Noted Date Diagnosed Date Resolved Date On mechanically assisted ventilation 01/03/2025 01/04/2025 Assessment & Plan (01/03/2025 3:54 PM EST): Intubated for procedure CXR pending Continue aggressive pulm secretion mobilization Wean sedation as tolerated; daily PST Wean mechanical ventilator as tolerated Continue chlorhexidine per vent bundle PRN CXR, blood gasses and nebs Alcohol abuse, uncomplicated 11/04/2024 01/03/2025 Alcoholic hepatitis with ascites 11/04/2024 01/03/2025 Enterocolitis due to Clostri dium difficile, not specified as recurrent 11/04/2024 11/04/2024 Muscle weakness (generalized) 11/04/2024 01/03/2025 Pain in left knee 11/04/2024 01/03/2025 Unspecified jaundice 11/04/2024 025 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 Date Type Department Care Team Description 01/20/2025 8:40 AM EST Office Visit [facility] [address] [place] [address] Chacha Heard APRN Transplant-Liver -Surgery-Paul Liver replaced by transplant (Primary Dx); Encounter for long-term (current) use of high-risk medication; Aftercare following organ transplant; Immunosuppression (CMS/HCC); Physical debility; Moderate protein-calorie malnutrition (CMS/HCC); Biliary stricture of transplanted liver (CMS/HCC); Other secondary hypertension; Anemia, unspecified type; Hypomagnesemia; Benign essential tremor 01/20/2025 Clinical Support [facility] [address] [address] Kelvin Ibarra, FLASH 01/20/2025 Travel 01/19/2025 Patient Outreach [facility], [address] [place] [address] Anh Harvey, RPG PROGRAMMER [facility] 01/15/2025 Orders Only [facility] [address] [address] Yari Reilly, FLASH 01/13/2025 Travel 2025 11:55 AM EST Anesthesia Event [facility] [address] [place] [address] Da De MD 2025 Travel 01/10/2025 Travel 01/08/2025 Travel 01/06/2025 Travel 01/05/2025 Lab Requisition [facility] Lab [address] [place] [address] Diego Gray MD Encounter for general adult medical examination without abnormal findings 01/05/2025 Travel 01/05/2025 Lab Requisition [facility] Blood Bank [address] [place] [address] Luis Steel MD General medical exam 01/04/2025 Travel 01/03/2025 7:01 AM EST Anesthesia Event [facility] OPERATING ROOM [address] [place] [address] Josafat Rivera MD Sarno, Alessandro F, DO 01/03/2025 7:00 AM EST - 01/03/2025 4:00 PM EST Surgery [facility] [address] [place] [address] Satnam Beckford MD TRANSPLANT, LIVER 01/03/2025 Travel 01/02/2025 9:05 AM EST - 01/16/2025 5:32 PM EST Hospital Encounter [facility] Inpatient [address] [place] [address] Satnam Beckford MD Shah, Malay B, MD Decompensation of cirrhosis of liver (CMS/HCC) (Primary Dx); Elevated INR; Liver replaced by transplant Discharge Disposition: Home or Self Care 01/02/2025 Travel 01/01/2025 Telephone [facility] [address] [address] Catracho Mattie 12/30/2024 8:00 AM EST Office Visit [facility] [address] [address] Brionna Martinez PA Weakness (Primary Dx); Insomnia, unspecified type; Awaiting liver transplant; Decompensation of cirrhosis of liver (CMS/HCC); Primary insomnia; Depressive disorder 12/30/2024 Telephone [facility] [address] [address] Ping Daley, RN 12/30/2024 Travel 12/24/2024 Travel 12/22/2024 Telephone [facility] Medicine Virtual Dept. [address] [place] [address] Leroy Aponte MD Prior-authorization/ insurance Verification 12/19/2024 Results Follow-Up [facility] [address] [address] Ping Daley RN 12/18/2024 9:56 AM EST Anesthesia Event [facility] [address] [place] [address] Liu East MD 12/18/2024 Travel 12/17/2024 9:32 AM EST - 12/20/2024 2:30 AM EST Hospital Encounter [facility] Inpatient [address] [place] [address] Dionicio Lai MD Myers, Kurt A, MD Alcoholic cirrhosis, unspecified whether ascites present (Primary [...] jaundice Discharge Disposition: Home or Self Care 12/17/2024 9:00 AM EST Office Visit [facility] [address] [address] Prieto Dillon MD Decompensation of cirrhosis of liver (CMS/HCC) (Primary Dx); Hepatic encephalopathy (CMS/HCC); Severe alcohol use disorder, in sustained remission; Portal hypertension (CMS/HCC); Acute on chronic anemia; Symptomatic anemia 12/17/2024 Travel 12/12/2024 Telephone [facility] [place] [address] [address] Ping Daley RN 12/12/2024 Results Follow-Up [place] [address] [address] Ping Daley, RN 12/10/2024 Travel 12/09/2024 Orders Only [facility] [place] [address] [address] Ping Daley, RN Hepatic encephalopathy (CMS/HCC) (Primary Dx); Decompensation of cirrhosis of liver (CMS/HCC) 12/08/2024 Travel 12/04/2024 Refill [place] [address] [address] Brionna Martinez, PA Hepatic encephalopathy (CMS/HCC) 12/03/2024 8:00 AM EDT Office Visit [facility] [address] [place] [address] Brionna Martinez, CRISTAL Hepatic encephalopathy (CMS/HCC) (Primary Dx); Decompensation of cirrhosis of liver (CMS/HCC); Anemia, unspecified type 12/03/2024 Telephone [facility] [address] [place] [address] Reena Valerio, PharmD Xifaxan PAP 12/03/2024 Travel 12/02/2024 Orders Only [facility] [address] [place] [address] Ping Daley, RN Decompensation of cirrhosis of liver (CMS/HCC) (Primary Dx); Portal hypertension (CMS/HCC) 12/02/2024 Travel 11/28/2024 Results Follow-Up [facility] [address] [place] [address] Ping Daley, RN 11/26/2024 Refill [facility] [address] [place] [address] Ping Daley, RN Insomnia, unspecified type 11/25/2024 11:30 AM EDT Office Visit [facility] [address] [place] [address] Miquel Lopez MD Decompensation of cirrhosis of liver (CMS/HCC) (Primary Dx); Portal hypertension (CMS/HCC); Tobacco use disorder, continuous; Severe alcohol use disorder, in sustained remission; Spontaneous bacterial peritonitis 11/25/2024 Travel 11/21/2024 Refill [facility] [address] [place] [address] Ping Daley, RN Spontaneous bacterial peritonitis 11/17/2024 Travel 11/11/2024 1:30 PM EDT Pharmacist Visit [facility] [address] [place] [address] Greg Sibley, PharmD 11/11/2024 11:00 AM EDT Office Visit [facility] [address] [address] Miquel Lopez MD Decompensation of cirrhosis of liver (CMS/HCC) (Primary Dx); Spontaneous bacterial peritonitis (CMS/HCC); Portal hypertension (CMS/HCC) 11/11/2024 9:00 AM EDT Social Work [facility] [address] [address] Laura Muñiz, VITALY 11/11/2024 Travel 11/10/2024 Travel 11/04/2024 1:17 PM EDT - 11/04/2024 11:59 PM EDT Hospital Encounter [facility] Interventional Radiology [address] [place] [address] Jolene Ibarra Abdominal ascites Discharge Disposition: Home or Self Care 11/04/2024 Travel 10/27/2024 Clinical Support [facility] [address] [address] Mela Sterling, RD 10/27/2024 Travel 10/18/2024 10:57 PM EDT - 10/24/2024 1:22 PM EDT Hospital Encounter [facility] [address] [place] [address] Rylee Meredith MD Saari, Haleigh D, DO Vyasabattu, Mahender, MD Anemia, unspecified type (Primary Dx); Alcohol use disorder, severe, dependence (CMS/HCC) [F10.20]; Generalized anxiety disorder [F41.1]; Mild episode of recurrent major depressive disorder (CMS/HCC) [F33.0]; Primary insomnia [F51.01]; Tobacco use disorder, continuous [F17.209]; Spontaneous bacterial peritonitis (CMS/HCC); Decompensation of cirrhosis of liver (CMS/HCC) Discharge Disposition: Rehab Facility from Last 3 Months Immunizations Immunization Administration Dates Next Due HepB-CpG 11/25/2024 Social History Tobacco Use Types Packs/Day Years [...] or relatives? Twice a week 01/02/2025 Attends [employer] Services Not on file 01/02 Do you belong to any clubs o r organizations such as voodoo groups, unions, fraternal or athletic groups, or [...] housing, medical care, and heating? Hard 01/02/2025 [facility] Occupat ional Health - Occupational Stress [...] a senior care (including now)? No 01/02/2025 [facility] Utilities Answer Date Recorded In [...] drink first t edgardo in the morning ([employer]) to steady your nerves or to get rid of a hangover? 1 01/02/2025 CAGE Questionnaire Score 4 025 Sex and Gender Information Value Date Recorded Sex Assigned at Not on file Legal Sex Male 2:45 PM EDT Gender Identity Not on file Sexual Orientation Not on file Last Filed Vital Signs Vital Sign Reading [...] Mass Index 23.87 01/20/2025 7:10 AM EST Plan of Treatment Upcoming Encounters Date Type Department Care Team (Late st Contact Info) Description 01/23/2025 8:40 AM EST Office Visit [facility] [address] [place] [address] [id number] rosemary-Paul 03/06/2025 11:10 AM EST Appointment [facility] [address] [place] [address] Natalya Valentine MD [address] [place] [address] Health Maintenance Due Date Last Done Comments [facility]-/Child/Adol SDOH Screenings 1979 [id number]-15 Vaccine (#1) 1979 [facility]-DTaP,Tdap,and Td Vaccine s (1 - Tdap) 1998 [facility]-Hepatitis A Vaccines (1 of 2 - Risk 2-dose series) 1998 [facility]-Pneumococcal Vaccine: Pediatrics (0 to 5 Years) and At-Risk Patients (6 to 49 Years) (1 of 2 - PCV) 1998 [facility]-Zoster Vaccines (1 of 2) 1998 CT Colonography 01/13/2024 FIT-DNA 01/13/2024 FIT 01/13/2024 FOBT 01/13/2024 Sigmoidoscopy 01/13/2024 [facility]-Influenza Vaccine (#1) 2024 [facility]-Hepatitis B Vaccines (2 of 2 - CpG 2-dose series) 12/23/2024 11/25/2024 [facility]- SDOH Screenings 07/02/2025 [facility]-Adult SDOH Screenings 07/02/2025 01/02/2025 [facility]-Depression Screening 01/20/2026 025, 01/20/2025 Colonoscopy 12/18/2034 12/18/2024 [facility]-Colorectal Cancer Screening 12/18/2034 [facility]-HIV Screening Completed 01/02/2025, 10/20/2024 [facility]-Hepatitis C Screening Completed 2024, 01/02/2025, 10/20/2024 HPV Vaccines (No Doses Required) Completed [facility]-HIB Vaccines Aged Out No longer e ligible based on patient's age to complete this topic [facility]-IPV Vaccines Aged Out No longer e ligible based on patient's age to complete this topic [facility]-Rotavirus Vaccines Aged Out No lo nger eligible based on patient's age to complete this topic Procedures Procedure Name Priority Date/Time Associated Diagnosis Comments COMPREHENSIVE METABOLIC PANEL, PLASMA Routine 01/20/2025 6:39 AM EST Encounter for long-term (current) use of medications Status post liver transplantation (CMS/HCC) GAMMA GLUTAMYLTRANSFERASE, PLASMA Routine 01/20/2025 6:39 AM EST Encounter for long-term (current) use of medications Status post liver transplantation (CMS/HCC) CBC WITH AUTO DIFFERENTIAL Routine 01/20/2025 6:39 AM EST Encounter for long-term (current) use of medications Status post liver transplantation (CMS/HCC) MAGNESIUM, PLASMA Routine 01/20/2025 6:39 AM EST Encounter for long-term (current) use of medications Status post liver transplantation (CMS/HCC) TACROLIMUS LEVEL Routine 01/20/2025 6:39 AM EST Encounter for long-term (current) use of medications Status post liver transplantation (CMS/HCC) POCT GLUCOSE METER UNSOLICITED RESULTS Routine 01/16/2025 12:01 PM EST POCT GLUCOSE METER UNSOLICITED RESULTS Routine 01/16/2025 8:09 AM EST TACROLIMUS LEVEL Routine 01/16/2025 4:48 AM EST PHOSPHORUS, PLASMA Routine 01/16/2025 4:47 AM EST MAGNESIUM, PLASMA Routine 01/16/2025 4:47 AM EST COMPREHENSIVE METABOLIC PANEL, PLASMA Routine 01/16/2025 4:47 AM EST CBC W/O DIFFERENTIAL Routine 01/16/2025 4:47 AM EST PROTHROMBIN TIME(PT) / INR Routine 01/16/2025 4:47 AM EST POCT GLUCOSE METER UNSOLICITED RESULTS Routine 01/15/2025 8:39 PM EST POCT GLUCOSE METER UNSOLICITED RESULTS Routine 01/15/2025 5:07 PM EST POCT GLUCOSE METER UNSOLICITED RESULTS Routine 01/15/2025 11:54 AM EST POCT GLUCOSE METER UNSOLICITED RESULTS Routine 01/15/2025 7:53 AM EST PHOSPHORUS, PLASMA Routine 01/15/2025 5:00 AM EST MAGNESIUM, PLASMA Routine 01/15/2025 5:00 AM EST COMPREHENSIVE METABOLIC PANEL, PLASMA Routine 01/15/2025 5:00 AM EST CBC W/O DIFFERENTIAL Routine 01/15/2025 5:00 AM EST PROTHROMBIN TIME(PT) / INR Routine 01/15/2025 5:00 AM EST TACROLIMUS LEVEL Routine 01/15/2025 5:00 AM EST POCT GLUCOSE METER UNSOLICITED RESULTS Routine 01/14/2025 8:25 PM EST POCT GLUCOSE METER UNSOLICITED RESULTS Routine 01/14/2025 5:01 PM EST POCT GLUCOSE METER UNSOLICITED RESULTS Routine 01/14/2025 11:29 AM EST POCT GLUCOSE METER UNSOLICITED RESULTS Routine 01/14/2025 7:59 AM EST PHOSPHORUS, PLASMA Routine 01/14/2025 4:56 AM EST MAGNESIUM, PLASMA Routine 01/14/2025 4:56 AM EST COMPREHENSIVE METABOLIC PANEL, PLASMA Routine 01/14/2025 4:56 AM EST CBC W/O DIFFERENTIAL Routine 01/14/2025 4:56 AM EST PROTHROMBIN TIME(PT) / INR Routine 01/14/2025 4:56 AM EST TACROLIMUS LEVEL Routine 01/14/2025 4:56 AM EST POCT GLUCOSE METER UNSOLICITED RESULTS Routine 01/13/2025 7:34 PM EST POCT GLUCOSE METER UNSOLICITED RESULTS Routine 01/13/2025 6:12 PM EST US GUIDED NEEDLE BIOPSY LIVER Routine 01/13/2025 4:26 PM EST SURGICAL PATHOLOGY EXAM Timed 01/14/20 4:16 PM EST POCT GLUCOSE METER UNSOLICITED RESULTS Routine 01/13/2025 11:10 AM EST SHAILESH SUÁREZ VIRUS (EBV) QUANTITATIVE PCR Routine 01/13/2025 10:59 AM EST CYTOMEGALOVIRUS (CMV) QUANTITATIVE PCR Routine 01/13/2025 10:59 AM EST HERPES SIMPLEX VIRUS 1/2 QUALITATIVE BY PCR, SERUM Routine 01/13/2025 10:59 AM EST POCT GLUCOSE METER UNSOLICITED RESULTS Routine 01/13/2025 8:20 AM EST POCT GLUCOSE METER UNSOLICITED RESULTS Routine 01/13/2025 6:36 AM EST POCT GLUCOSE METER UNSOLICITED RESULTS Routine 01/13/2025 5:52 AM EST DIRECT BILIRUBIN, PLASMA STAT Add-on 025 4:43 AM EST PHOSPHORUS, PLASMA Routine 01/13/2025 4:43 AM EST MAGNESIUM, PLASMA Routine 01/13/2025 4:43 AM EST COMPREHENSIVE METABOLIC PANEL, PLASMA Routine 01/13/2025 4:43 AM EST CBC W/O DIFFERENTIAL Routine 01/13/2025 4:43 AM EST PROTHROMBIN TIME(PT) / INR Routine 01/13/2025 4:43 AM EST TACROLIMUS LEVEL Routine 01/13/2025 4:43 AM EST POCT GLUCOSE [...] INR ERCP Routine 2025 12:58 PM EST Hyperbilirubinemia Liver transplant recipient (CMS/HCC) PB ANESTHESIA PLACEHOLDER Routine 2025 11:59 AM EST [place] AN ELECTIVE ENDOTRACHEAL AIRWAY Routine 2025 11:59 AM EST POCT GLUCOSE METER UNSOLICITED RESULTS Routine 2025 8:35 AM EST POCT GLUCOSE METER UNSOLICITED RESULTS Routine 2025 7:50 AM EST POCT GLUCOSE METER UNSOLICITED RESULTS Routine 2025 6:53 AM EST POCT GLUCOSE METER UNSOLICITED RESULTS Routine 2025 6:13 AM EST POCT GLUCOSE METER UNSOLICITED RESULTS Routine 2025 5:53 AM EST PHOSPHORUS, PLASMA Routine 2025 4:51 AM EST MAGNESIUM, PLASMA Routine 2025 4:51 AM EST COMPREHENSIVE METABOLIC PANEL, PLASMA Routine 2025 4:51 AM EST CBC W/O DIFFERENTIAL Routine 2025 4:51 AM EST PROTHROMBIN TIME(PT) / INR Routine 2025 4:51 AM EST TACROLIMUS LEVEL Routine 2025 4:51 AM EST POCT GLUCOSE METER UNSOLICITED RESULTS Routine 01/11/2025 8:22 PM EST POCT GLUCOSE METER UNSOLICITED RESULTS Routine 01/11/2025 4:54 PM EST POCT GLUCOSE METER UNSOLICITED RESULTS Routine 01/11/2025 11:35 AM EST POCT GLUCOSE METER UNSOLICITED RESULTS Routine 01/11/2025 8:06 AM EST PROTHROMBIN TIME(PT) / INR Routine 01/11/2025 5:41 AM EST PHOSPHORUS, PLASMA Routine 01/11/2025 4:49 AM EST MAGNESIUM, PLASMA Routine 01/11/2025 4:49 AM EST COMPREHENSIVE METABOLIC PANEL, PLASMA Routine 01/11/2025 4:49 AM EST CBC W/O DIFFERENTIAL Routine 01/11/2025 4:49 AM EST TACROLIMUS LEVEL Routine 01/11/2025 4:49 AM EST POCT GLUCOSE [...] UNSOLICITED RESULTS Routine 01/10/2025 5:23 AM EST PHOSPHORUS, PLASMA Routine 01/10/2025 5:13 AM EST MAGNESIUM, PLASMA Routine 01/10/2025 5:13 AM EST COMPREHENSIVE METABOLIC PANEL, PLASMA Routine 01/10/2025 5:13 AM EST CBC W/O DIFFERENTIAL Routine 01/10/2025 5:13 AM EST PROTHROMBIN TIME(PT) / INR Routine 01/10/2025 5:13 AM EST TACROLIMUS LEVEL Routine 01/10/2025 5:13 AM EST POCT GLUCOSE METER UNSOLICITED RESULTS Routine 01/10/2025 12:35 AM EST POCT GLUCOSE METER UNSOLICITED RESULTS Routine 01/10/2025 12:05 AM EST PEP THERAPY Routine 01/10/2025 12:00 AM EST PAP THERAPY Routine 01/10/2025 12:00 AM EST PEP THERAPY Routine 01/09/2025 8:00 PM EST PAP THERAPY Routine 01/09/2025 8:00 PM EST POCT GLUCOSE METER UNSOLICITED RESULTS Routine 01/09/2025 7:52 PM EST POCT GLUCOSE METER UNSOLICITED RESULTS Routine 01/09/2025 5:02 PM EST PEP THERAPY Routine 01/09/2025 4:00 PM EST PAP THERAPY Routine 01/09/2025 4:00 PM EST PEP THERAPY Routine 01/09/2025 12:00 PM EST PAP THERAPY Routine 01/09/2025 12:00 PM EST POCT GLUCOSE METER UNSOLICITED RESULTS Routine 01/09/2025 11:23 AM EST PEP THERAPY Routine 01/09/2025 8:00 AM EST PAP THERAPY Routine 01/09/2025 8:00 AM EST POCT GLUCOSE METER UNSOLICITED RESULTS Routine 01/09/2025 8:00 AM EST POCT GLUCOSE METER UNSOLICITED RESULTS Routine 01/09/2025 5:38 AM EST PHOSPHORUS, PLASMA Add-On 01/09/2025 5:13 AM EST MAGNESIUM, PLASMA Add-On 01/09/2025 5:13 AM EST COMPREHENSIVE METABOLIC PANEL, PLASMA Add-On 01/09/2025 5:13 AM EST CBC W/O DIFFERENTIAL Add-On 01/09/2025 5:13 AM EST EXTRA TUBE LAVENDER TOP Routine 01/10/20 5:13 AM EST EXTRA TUBE LIGHT GREEN TOP Routine 01/09/2025 5:13 AM EST EXTRA TUBES Routine 01/09/2025 5:13 AM EST PROTHROMBIN TIME(PT) / INR Routine 01/09/2025 5:07 AM EST TACROLIMUS LEVEL Routine 01/09/2025 5:07 AM EST PEP THERAPY Routine 01/09/2025 12:00 AM EST PAP THERAPY Routine 01/09/2025 12:00 AM EST POCT GLUCOSE METER UNSOLICITED RESULTS Routine 01/08/2025 11:28 PM EST POCT GLUCOSE METER UNSOLICITED RESULTS Routine 01/08/2025 8:09 PM EST PEP THERAPY Routine 01/08/2025 8:00 PM EST PAP THERAPY Routine 01/08/2025 8:00 PM EST POCT GLUCOSE METER UNSOLICITED RESULTS Routine 01/08/2025 5:11 PM EST PEP THERAPY Routine 01/08/2025 4:00 PM EST PAP THERAPY Routine 01/08/2025 4:00 PM EST XR CHEST 1 VIEW Routine 01/08/2025 12:15 PM EST PEP THERAPY Routine 01/08/2025 12:00 PM EST PAP THERAPY Routine 01/08/2025 12:00 PM EST POCT GLUCOSE METER UNSOLICITED RESULTS Routine 01/08/2025 11:30 AM EST PHOSPHORUS, PLASMA Routine 01/08/2025 8:21 AM EST CBC WITH AUTO DIFFERENTIAL Routine 01/08/2025 8:21 AM EST COMPREHENSIVE METABOLIC PANEL, PLASMA Routine 01/08/2025 8:21 AM EST MAGNESIUM, PLASMA Routine 01/08/2025 8:21 AM EST POCT GLUCOSE METER UNSOLICITED RESULTS Routine 01/08/2025 8:04 AM EST PEP THERAPY Routine 01/08/2025 8:00 AM EST PAP THERAPY Routine 01/08/2025 8:00 AM EST POCT GLUCOSE METER UNSOLICITED RESULTS Routine 01/08/2025 6:36 AM EST TACROLIMUS LEVEL Routine 01/08/2025 5:05 AM EST PROTHROMBIN TIME(PT) / INR Routine 01/08/2025 5:04 AM EST EXTRA TUBE LAVENDER TOP Routine 01/09/20 4:56 AM EST EXTRA TUBES Routine 01/08/2025 4:56 AM EST PEP THERAPY Routine 01/08/2025 12:00 AM EST PAP THERAPY Routine 01/08/2025 12:00 AM EST POCT GLUCOSE METER UNSOLICITED RESULTS Routine 01/07/2025 11:52 PM EST POCT GLUCOSE METER UNSOLICITED RESULTS Routine 01/07/2025 8:57 PM EST PEP THERAPY Routine 01/07/2025 8:00 PM EST PAP THERAPY Routine 01/07/2025 8:00 PM EST PHOSPHORUS, PLASMA Timed 01/07/2025 5:54 PM EST MAGNESIUM, PLASMA Timed 01/07/2025 5:54 PM EST COMPREHENSIVE METABOLIC PANEL, PLASMA Timed 01/07/2025 5:54 PM EST CBC WITH AUTO DIFFERENTIAL Timed 01/07/2025 5:54 PM EST POCT GLUCOSE METER UNSOLICITED RESULTS Routine 01/07/2025 5:35 PM EST PEP THERAPY Routine 01/07/2025 4:00 PM EST PAP THERAPY Routine 01/07/2025 4:00 PM EST PEP THERAPY Routine 01/07/2025 12:00 PM EST PAP THERAPY Routine 01/07/2025 12:00 PM EST POCT GLUCOSE METER UNSOLICITED RESULTS Routine 01/07/2025 11:37 AM EST PEP THERAPY Routine 01/07/2025 9:50 AM EST PEP THERAPY Routine 01/07/2025 9:50 AM EST PEP THERAPY Routine 01/07/2025 9:50 AM EST PEP THERAPY Routine 01/07/2025 9:50 AM EST PEP THERAPY Routine 01/07/2025 9:50 AM EST PAP THERAPY Routine 01/07/2025 9:50 AM EST PAP THERAPY Routine 01/07/2025 9:50 AM EST PAP THERAPY Routine 01/07/2025 9:50 AM EST PAP THERAPY Routine 01/07/2025 9:50 AM EST PAP THERAPY Routine 01/07/2025 9:50 AM EST POCT GLUCOSE METER UNSOLICITED RESULTS Routine 01/07/2025 8:14 AM EST PHOSPHORUS, PLASMA Timed 01/07/2025 7:31 AM EST MAGNESIUM, PLASMA Timed 01/07/2025 7:31 AM EST COMPREHENSIVE METABOLIC PANEL, PLASMA Timed 01/07/2025 7:31 AM EST CBC WITH AUTO DIFFERENTIAL Timed 01/07/2025 7:31 AM EST POCT GLUCOSE METER UNSOLICITED RESULTS Routine 01/07/2025 6:02 AM EST TACROLIMUS LEVEL Routine 01/07/2025 4:38 AM EST POCT GLUCOSE METER UNSOLICITED RESULTS Routine 01/07/2025 12:56 AM EST PROTHROMBIN TIME(PT) / INR Routine 01/07/2025 12:56 AM EST POCT GLUCOSE METER UNSOLICITED RESULTS Routine 01/06/2025 6:00 PM EST PHOSPHORUS, PLASMA Timed 01/06/2025 6:00 PM EST MAGNESIUM, PLASMA Timed 01/06/2025 6:00 PM EST COMPREHENSIVE METABOLIC PANEL, PLASMA Timed 01/06/2025 6:00 PM EST CBC WITH AUTO DIFFERENTIAL Timed 01/06/2025 6:00 PM EST POCT GLUCOSE METER UNSOLICITED RESULTS Routine 01/06/2025 5:07 PM EST POCT GLUCOSE METER UNSOLICITED RESULTS Routine 01/06/2025 11:47 AM EST PROTHROMBIN TIME(PT) / INR Timed 01/06/2025 11:44 AM EST PAP THERAPY Routine 01/06/2025 10:00 AM EST PEP THERAPY Routine 01/06/2025 10:00 AM EST XR ABDOMEN 1 VIEW STAT 01/06/2025 8:47 AM EST PHOSPHORUS, PLASMA Timed 01/06/2025 7:36 AM EST MAGNESIUM, PLASMA Timed 01/06/2025 7:36 AM EST COMPREHENSIVE METABOLIC PANEL, PLASMA Timed 01/06/2025 7:36 AM EST PROTHROMBIN TIME(PT) / INR Timed 01/06/2025 7:36 AM EST CBC W/O DIFFERENTIAL Timed 01/06/2025 7:36 AM EST PAP THERAPY Routine 01/06/2025 6:00 AM EST PEP THERAPY Routine 01/06/2025 6:00 AM EST TACROLIMUS LEVEL Routine 01/06/2025 5:15 AM EST PROTHROMBIN TIME(PT) / INR Timed 01/06/2025 4:27 AM EST CBC W/O DIFFERENTIAL Timed 01/06/2025 4:27 AM EST XR CHEST 1 VIEW Routine 01/06/2025 2:41 AM EST POCT GLUCOSE METER UNSOLICITED RESULTS Routine 01/06/2025 12:19 AM EST PHOSPHORUS, PLASMA Timed 01/06/2025 12:15 AM EST MAGNESIUM, PLASMA Timed 01/06/2025 12:15 AM EST COMPREHENSIVE METABOLIC PANEL, PLASMA Timed 01/06/2025 12:15 AM EST PROTHROMBIN TIME(PT) / INR Timed 01/06/2025 12:15 AM EST CBC W/O DIFFERENTIAL Timed 01/06/2025 12:15 AM EST PAP THERAPY Routine 01/05/2025 10:00 PM EST PEP THERAPY Routine 01/05/2025 10:00 PM EST PROTHROMBIN TIME(PT) / INR Timed 01/05/2025 8:05 PM EST CBC W/O DIFFERENTIAL Timed 01/05/2025 8:05 PM EST MULTI DRUG RESISTANCE TEST Routine 01/05/2025 6:40 PM EST Encounter for general adult medical examination without abnormal findings POCT GLUCOSE METER UNSOLICITED RESULTS Routine 01/05/2025 6:31 PM EST PEP THERAPY Routine 01/05/2025 6:00 PM EST POCT GLUCOSE METER UNSOLICITED RESULTS Routine 01/05/2025 3:51 PM EST PHOSPHORUS, PLASMA Timed 01/05/2025 3:49 PM EST MAGNESIUM, PLASMA Timed 01/05/2025 3:49 PM EST COMPREHENSIVE METABOLIC PANEL, PLASMA Timed 01/05/2025 3:49 PM EST PROTHROMBIN TIME(PT) / INR Timed 01/05/2025 3:49 PM EST CBC W/O DIFFERENTIAL Timed 01/05/2025 3:49 PM EST PAP THERAPY Routine 01/05/2025 2:00 PM EST PEP THERAPY Routine 01/05/2025 2:00 PM EST XR ABDOMEN 1 VIEW STAT 01/05/2025 12:41 PM EST POCT GLUCOSE METER UNSOLICITED RESULTS Routine 01/05/2025 12:03 PM EST PROTHROMBIN TIME(PT) / INR Timed 01/05/2025 12:00 PM EST CBC W/O DIFFERENTIAL Timed 01/05/2025 12:00 PM EST [place] [facility]IT[facility], E/M 30-74 MINUTES Routine 01/05/2025 11:03 AM EST Decompensation of cirrhosis of liver (CMS/HCC) PAP THERAPY Routine 01/05/2025 10:00 AM EST PEP THERAPY Routine 01/05/2025 10:00 AM EST COMPREHENSIVE METABOLIC PANEL, PLASMA Timed 01/05/2025 8:39 AM EST MAGNESIUM, PLASMA Timed 01/05/2025 8:39 AM EST PHOSPHORUS, PLASMA Timed 01/05/2025 8:39 AM EST PROTHROMBIN TIME(PT) / INR Timed 01/05/2025 8:39 AM EST CBC W/O DIFFERENTIAL Timed 01/05/2025 8:39 AM EST POCT GLUCOSE [...] W/O DIFFERENTIAL Timed 01/05/2025 3:54 AM EST COMPREHENSIVE METABOLIC PANEL, PLASMA Timed 01/05/2025 12:06 AM EST MAGNESIUM, PLASMA Timed 01/05/2025 12:06 AM EST PHOSPHORUS, PLASMA Timed 01/05/2025 12:06 AM EST PROTHROMBIN TIME(PT) / INR Timed 01/05/2025 12:06 AM EST CBC W/O DIFFERENTIAL Timed 01/05/2025 12:06 AM EST PAP THERAPY [...] UNSOLICITED RESULTS Routine 01/04/2025 5:24 PM EST COMPREHENSIVE METABOLIC PANEL, PLASMA Timed 01/04/2025 3:01 PM EST MAGNESIUM, PLASMA Timed 01/04/2025 3:01 PM EST PHOSPHORUS, PLASMA Timed 01/04/2025 3:01 PM EST PROTHROMBIN TIME(PT) / INR Timed 01/04/2025 3:01 PM EST CBC W/O DIFFERENTIAL Timed 01/04/2025 3:01 PM EST PAP THERAPY Routine 01/04/2025 2:00 PM EST PEP THERAPY Routine 01/04/2025 2:00 PM EST TRANSFUSE FRESH FROZEN PLASMA Routine 01/04/2025 12:27 PM EST HEMOGLOBIN AND HEMATOCRIT, BLOOD Routine 01/04/2025 11:46 AM EST TRANSFUSE PLATELETS Routine 01/04/2025 11:36 AM EST POCT GLUCOSE METER UNSOLICITED RESULTS Routine 01/04/2025 11:14 AM EST US ABDOMEN FOCUSED REGION Routine 01/04/2025 10:30 AM EST US ABDOMEN DOPPLER COMPLETE Routine 01/04/2025 10:30 AM EST PREPARE PLATELETS Routine 01/04/2025 10:15 AM EST TRANSFUSE RED BLOOD CELLS Routine 01/04/2025 10:11 AM EST PAP THERAPY Routine 01/04/2025 10:00 AM EST PEP THERAPY Routine 01/04/2025 10:00 AM EST [place] [facility], E/M 30-74 MINUTES Routine 01/04/2025 9:16 AM EST Decompensation of cirrhosis of liver (CMS/HCC) PREPARE FRESH FROZEN PLASMA Routine 01/04/2025 8:51 AM EST TEG GLOBAL HEMOSTASIS WITH LYSIS Routine 01/04/2025 8:17 AM EST PREPARE RBC Routine 01/04/2025 8:04 AM EST TRANSFUSE RED BLOOD CELLS Routine 01/04/2025 8:00 AM EST PREPARE RBC Routine 01/04/2025 7:47 AM EST PHOSPHORUS, PLASMA Timed 01/04/2025 7:32 AM EST MAGNESIUM, PLASMA Timed 01/04/2025 7:32 AM EST PROTHROMBIN TIME(PT) / INR Timed 01/04/2025 7:32 AM EST COMPREHENSIVE METABOLIC PANEL, PLASMA Timed 01/04/2025 7:32 AM EST CBC W/O DIFFERENTIAL Timed 01/04/2025 7:32 AM EST PAP THERAPY [...] UNSOLICITED RESULTS Routine 01/03/2025 11:34 PM EST PHOSPHORUS, PLASMA Timed 01/03/2025 11:29 PM EST MAGNESIUM, PLASMA Timed 01/03/2025 11:29 PM EST PROTHROMBIN TIME(PT) / INR Timed 01/03/2025 11:29 PM EST COMPREHENSIVE METABOLIC PANEL, PLASMA Timed 01/03/2025 11:29 PM EST CBC W/O DIFFERENTIAL Timed 01/03/2025 11:29 PM EST TRANSFUSE FRESH FROZEN PLASMA Routine 01/03/2025 8:18 PM EST PREPARE FRESH FROZEN PLASMA Routine 01/03/2025 7:57 PM EST PHOSPHORUS, PLASMA Timed 01/03/2025 7:23 PM EST MAGNESIUM, PLASMA Timed 01/03/2025 7:23 PM EST PROTHROMBIN TIME(PT) / INR Timed 01/03/2025 7:23 PM EST COMPREHENSIVE METABOLIC PANEL, PLASMA Timed 01/03/2025 7:23 PM EST CBC W/O DIFFERENTIAL Timed 01/03/2025 7:23 PM EST POCT GLUCOSE [...] VENOUS Routine 01/03/2025 3:47 PM EST XR ABDOMEN 1 VIEW STAT 01/03/2025 3:39 PM EST XR CHEST 1 VIEW Routine 01/03/2025 3:39 PM EST [place] [facility], E/M 30-74 MINUTES Routine 01/03/2025 3:18 PM EST Decompensation of cirrhosis of liver (CMS/HCC) PREPARE FRESH FROZEN PLASMA Routine 01/03/2025 3:02 PM EST BLOOD GAS PANEL, ARTERIAL STAT 01/03/2025 2:56 PM EST PHOSPHORUS, PLASMA STAT 01/03/2025 2:54 PM EST MAGNESIUM, PLASMA STAT 01/03/2025 2:54 PM EST COMPREHENSIVE METABOLIC PANEL, PLASMA STAT 01/03/2025 2:54 PM EST CBC WITH AUTO DIFFERENTIAL STAT 01/03/2025 2:54 PM EST TEG GLOBAL HEMOSTASIS WITH LYSIS STAT 01/03/2025 2:54 PM EST FIBRINOGEN,QUANTITATIVE (CLOTTABLE) STAT 01/03/2025 2:54 PM EST APTT STAT 01/03/2025 2:54 PM EST PROTHROMBIN TIME(PT) / INR STAT 01/03/2025 2:54 PM EST POCT ARTERIAL BLOOD GAS GEM UNSOLICITED RESULTS Routine 01/03/2025 2:13 PM EST POCT ARTERIAL BLOOD GAS GEM UNSOLICITED RESULTS Routine 01/03/2025 1:38 PM EST TRANSFUSE RED BLOOD CELLS Routine 01/03/2025 12:59 PM EST POCT ARTERIAL BLOOD GAS GEM UNSOLICITED RESULTS Routine 01/03/2025 12:54 PM EST TRANSFUSE FRESH FROZEN PLASMA Routine 01/03/2025 12:24 PM EST TRANSFUSE PLATELETS Routine 01/03/2025 11:59 AM EST EXCEPTION TO STANDARD PRACTICE, PATHOLOGIST INTERPRETATION Routine 01/03/2025 11:54 AM EST PREPARE PLATELETS STAT 01/03/2025 11:49 AM EST TEG GLOBAL HEMOSTASIS WITH LYSIS [...] UNSOLICITED RESULTS Routine 01/03/2025 8:37 AM EST ANESTHESIA ARTERIAL LINE PLACEMENT Routine 01/03/2025 8:09 AM EST TRANSFUSE RED BLOOD CELLS Routine [...] EST Decompensation of cirrhosis of liver (CMS/HCC) ANESTHESIA PERIPHERAL IV PLACEMENT Routine 01/03/2025 7:30 AM EST ANESTHESIA ULTRASOUND GUIDED Routine 01/03/2025 7:30 AM EST PB ANESTHESIA NON-TIMED PROCEDURE PLACEHOLDER Routine 01/03/2025 7:30 AM EST [place] AN CENTRAL LINE TRIPLE LUMEN Routine 01/03/2025 7:30 AM EST [place] INSERT/PLACE FLOW DIRECT CATH Routine 01/03/2025 7:30 AM EST ANESTHESIA ULTRASOUND GUIDED Routine 01/03/2025 7:30 AM EST PB ANESTHESIA NON-TIMED PROCEDURE PLACEHOLDER Routine 01/03/2025 7:30 AM EST [place] AN CENTRAL LINE DOUBLE LUMEN Routine 01/03/2025 7:30 AM EST ANESTHESIA ULTRASOUND GUIDED Routine 01/03/2025 7:30 AM EST PB ANESTHESIA NON-TIMED PROCEDURE PLACEHOLDER Routine 01/03/2025 7:30 AM EST [place] AN CENTRAL LINE TRIPLE LUMEN Routine 01/03/2025 7:30 AM EST ANESTHESIA ARTERIAL LINE PLACEMENT Routine 01/03/2025 7:15 AM EST PB ANESTHESIA PLACEHOLDER Routine 01/03/2025 7:08 AM EST [place] AN ELECTIVE ENDOTRACHEAL AIRWAY Routine 01/03/2025 7:08 AM EST TRANSPLANT, LIVER 01/03/2025 6:45 AM EST Decompensation of cirrhosis of liver (CMS/HCC) PREPARE FRESH FROZEN PLASMA STAT 01/03/2025 6:43 AM EST POCT GLUCOSE METER UNSOLICITED RESULTS Routine 01/03/2025 3:34 AM EST PROTHROMBIN TIME(PT) / INR Routine 01/03/2025 3:34 AM EST PREPARE RBC Routine 01/02/2025 6:32 PM EST PREPARE FRESH FROZEN PLASMA Routine 01/02/2025 6:32 PM EST SARS COV-2/COVID-19 BY PCR - RAPID STAT 01/02/2025 9:46 AM EST HIV 1/2 ANTIBODY/ANTIGEN SCREEN WITH REFLEX TO HIV I/II DIFFERENTIATION STAT 01/02/2025 9:40 AM EST TYPE AND SCREEN Routine 01/02/2025 9:40 AM EST HIV 1/2 ANTIBODY/ANTIGEN SCREEN W/REFLEX TO HIV 1/2 ANTIBODY DIFFERENTIATION STAT 01/02/2025 9:40 AM EST HEPATITIS C VIRUS (HCV) QUANTITATIVE PCR STAT 01/02/2025 9:40 AM EST HEPATITIS C ANTIBODY W/REFLEX TO HCV QUANT PCR STAT 01/02/2025 9:40 AM EST HEPATITIS B SURFACE ANTIGEN STAT 01/02/2025 9:40 AM EST HEPATITIS B SURFACE ANTIBODY, QUANTITATIVE Routine 01/02/2025 9:40 AM EST HEPATITIS B CORE TOTAL AB (IGG AND IGM) STAT 01/02/2025 9:40 AM EST VITAMIN D 25 HYDROXY STAT 01/02/2025 9:40 AM EST APTT STAT 01/02/2025 9:40 AM EST PROTHROMBIN TIME(PT) / INR STAT 01/02/2025 9:40 AM EST COMPREHENSIVE METABOLIC PANEL, PLASMA STAT 01/02/2025 9:40 AM EST CBC WITH AUTO DIFFERENTIAL STAT 01/02/2025 9:40 AM EST BILL ONLY ABO/RH TYPE Routine 01/02/2025 9:31 AM EST General medical exam PREPARE RBC Routine 01/02/2025 9:23 AM EST PAIN MANAGEMENT, QUANTITATIVE URINE DRUG TESTING Routine 12/30/2024 6:24 AM EST Decompensation of cirrhosis of liver (CMS/HCC) Portal hypertension (CMS/HCC) Severe alcohol use disorder, in sustained remission Alcohol use disorder, severe, dependence (CMS/HCC) ALCOHOL, URINE Routine 12/30/2024 6:24 AM EST Decompensation of cirrhosis of liver (CMS/HCC) Portal hypertension (CMS/HCC) Severe alcohol use disorder, in sustained remission Alcohol use disorder, severe, dependence (CMS/HCC) CBC W/O DIFFERENTIAL Routine 12/30/2024 6:24 AM EST Decompensation of cirrhosis of liver (CMS/HCC) Portal hypertension (CMS/HCC) Severe alcohol use disorder, in sustained remission Alcohol use disorder, severe, dependence (CMS/HCC) COMPREHENSIVE METABOLIC PANEL, PLASMA Routine 12/30/2024 6:24 AM EST Decompensation of cirrhosis of liver (CMS/HCC) Portal hypertension (CMS/HCC) Severe alcohol use disorder, in sustained remission Alcohol use disorder, severe, dependence (CMS/HCC) COMPREHENSIVE URINE DRUG SCREENING,QUALITATIVE ASSAY, >= 27 DRUG CLASSES Routine 12/30/2024 6:24 AM EST Decompensation of cirrhosis of liver (CMS/HCC) Portal hypertension (CMS/HCC) Severe alcohol use disorder, in sustained remission Alcohol use disorder, severe, dependence (CMS/HCC) NICOTINE AND COTININE METABOLITE, SERUM, QUANTITATIVE Routine 12/30/2024 6:24 AM EST Decompensation of cirrhosis of liver (CMS/HCC) Portal hypertension (CMS/HCC) Severe alcohol use disorder, in sustained remission Alcohol use disorder, severe, dependence (CMS/HCC) PAIN MANAGEMENT, QUANTITATIVE URINE DRUG TESTING Routine 12/30/2024 6:24 AM EST Decompensation of cirrhosis of liver (CMS/HCC) Portal hypertension (CMS/HCC) Severe alcohol use disorder, in sustained remission Alcohol use disorder, severe, dependence (CMS/HCC) PROTHROMBIN TIME(PT) / INR Routine 12/30/2024 6:24 AM EST Decompensation of cirrhosis of liver (CMS/HCC) Portal hypertension (CMS/HCC) Severe alcohol use disorder, in sustained remission Alcohol use disorder, severe, dependence (CMS/HCC) PHOSPHATIDYLETHANOL (PETH), WHOLE BLOOD, QUANTITATIVE (SO) Routine 12/30/2024 6:24 AM EST Decompensation of cirrhosis of liver (CMS/HCC) Portal hypertension (CMS/HCC) Severe alcohol use disorder, in sustained remission Alcohol use disorder, severe, dependence (CMS/HCC) PAIN MANAGEMENT, QUANTITATIVE URINE DRUG TESTING Routine 12/24/2024 10:04 AM EST Decompensation of cirrhosis of liver (CMS/HCC) Hepatic encephalopathy (CMS/HCC) Severe alcohol use disorder, in sustained remission CBC WITH AUTO DIFFERENTIAL Routine 12/24/2024 10:04 AM EST Anemia, unspecified type ALCOHOL, URINE Routine 12/24/2024 10:04 AM EST Decompensation of cirrhosis of liver (CMS/HCC) Hepatic encephalopathy (CMS/HCC) Severe alcohol use disorder, in sustained remission COMPREHENSIVE METABOLIC PANEL, PLASMA Routine 12/24/2024 10:04 AM EST Decompensation of cirrhosis of liver (CMS/HCC) Hepatic encephalopathy (CMS/HCC) Severe alcohol use disorder, in sustained remission COMPREHENSIVE URINE DRUG SCREENING,QUALITATIVE ASSAY, >= 27 DRUG CLASSES Routine 12/24/2024 10:04 AM EST Decompensation of cirrhosis of liver (CMS/HCC) Hepatic encephalopathy (CMS/HCC) Severe alcohol use disorder, in sustained remission NICOTINE AND COTININE METABOLITE, SERUM, QUANTITATIVE Routine 12/24/2024 10:04 AM EST Decompensation of cirrhosis of liver (CMS/HCC) Hepatic encephalopathy (CMS/HCC) Severe alcohol use disorder, in sustained remission PAIN MANAGEMENT, QUANTITATIVE URINE DRUG TESTING Routine 12/24/2024 10:04 AM EST Decompensation of cirrhosis of liver (CMS/HCC) Hepatic encephalopathy (CMS/HCC) Severe alcohol use disorder, in sustained remission PROTHROMBIN TIME(PT) / INR Routine 12/24/2024 10:04 AM EST Decompensation of cirrhosis of liver (CMS/HCC) Hepatic encephalopathy (CMS/HCC) Severe alcohol use disorder, in sustained remission HEMOGLOBIN AND HEMATOCRIT, BLOOD Pending Discharge 12/20/2024 9:57 AM EST PHOSPHORUS, PLASMA Pending Discharge 12/20/2024 8:32 AM EST MAGNESIUM, PLASMA Pending Discharge 12/20/2024 8:32 AM EST PREPARE RBC Routine 12/20/2024 4:21 AM EST PROTHROMBIN TIME(PT) / INR Routine 12/20/2024 2:04 AM EST COMPREHENSIVE METABOLIC PANEL, PLASMA Routine 12/20/2024 2:04 AM EST CBC W/O DIFFERENTIAL Routine 12/20/2024 2:04 AM EST EXTRA TUBE LIGHT GREEN TOP Routine 12/19/2024 2:53 PM EST EXTRA TUBES Routine 12/19/2024 2:53 PM EST HEMOGLOBIN AND HEMATOCRIT, BLOOD Routine 12/19/2024 2:53 PM EST EXTRA TUBE LIGHT BLUE TOP Routine 12/19/2024 11:50 AM EST EXTRA TUBES Routine 12/19/2024 11:50 AM EST FERRITIN, SERUM Routine 12/19/2024 11:50 AM EST FOLATE, SERUM Routine 12/19/2024 11:50 AM EST VITAMIN B12, SERUM Routine 12/19/2024 11:50 AM EST HEMOGLOBIN AND HEMATOCRIT, BLOOD Routine 12/19/2024 9:26 AM EST EXTRA TUBE LAVENDER TOP Routine 12/20/19 9:26 AM EST EXTRA TUBES Routine 12/19/2024 9:26 AM EST IRON & TOTAL IRON BINDING CAPACITY, PLASMA (INCLUDES TRANSFERRIN) Add-On 12/19/2024 8:54 AM EST MAGNESIUM, PLASMA Pending Discharge 12/19/2024 8:54 AM EST COMPREHENSIVE METABOLIC PANEL, PLASMA Routine 12/19/2024 4:52 AM EST CBC WITH AUTO DIFFERENTIAL Routine 12/19/2024 4:52 AM EST HEMOGLOBIN AND HEMATOCRIT, BLOOD Routine 12/18/2024 3:38 PM EST EGD Routine 12/18/2024 11:24 AM EST Anemia, unspecified type COLONOSCOPY Routine 12/18/2024 11:24 AM EST Anemia, unspecified type CBC WITH AUTO DIFFERENTIAL Routine 12/18/2024 4:47 AM EST BASIC METABOLIC PANEL, PLASMA Routine 12/18/2024 4:47 AM EST PHOSPHORUS, PLASMA Routine 12/18/2024 4:47 AM EST HEPATIC FUNCTION PANEL Routine 4:47 AM EST PROTHROMBIN TIME(PT) / INR Routine 12/18/2024 4:47 AM EST MAGNESIUM, PLASMA Routine 12/18/2024 4:47 AM EST TRANSFUSE RED BLOOD CELLS Routine 12/17/2024 11:10 PM EST ECG ADULT Routine 12/17/2024 8:49 PM EST PREPARE RBC Routine 12/17/2024 8:25 PM EST HEMOGLOBIN AND HEMATOCRIT, BLOOD Routine 12/17/2024 5:51 PM EST TRANSFUSE RED BLOOD CELLS STAT 12/17/2024 11:01 AM EST PREPARE RBC STAT 12/17/2024 10:05 AM EST TYPE AND SCREEN Routine 12/17/2024 7:48 AM EST Decompensation of cirrhosis of liver (CMS/HCC) Anemia, unspecified type PAIN MANAGEMENT, QUANTITATIVE URINE DRUG TESTING Routine 12/17/2024 7:01 AM EST Hepatic encephalopathy (CMS/HCC) Decompensation of cirrhosis of liver (CMS/HCC) Severe alcohol use disorder, in sustained remission ALCOHOL, URINE Routine 12/17/2024 7:01 AM EST Hepatic encephalopathy (CMS/HCC) Decompensation of cirrhosis of liver (CMS/HCC) Severe alcohol use disorder, in sustained remission CBC W/O DIFFERENTIAL Routine 12/17/2024 7:01 AM EST Hepatic encephalopathy (CMS/HCC) Decompensation of cirrhosis of liver (CMS/HCC) Severe alcohol use disorder, in sustained remission COMPREHENSIVE METABOLIC PANEL, PLASMA Routine 12/17/2024 7:01 AM EST Hepatic encephalopathy (CMS/HCC) Decompensation of cirrhosis of liver (CMS/HCC) Severe alcohol use disorder, in sustained remission COMPREHENSIVE URINE DRUG SCREENING,QUALITATIVE ASSAY, >= 27 DRUG CLASSES Routine 12/17/2024 7:01 AM EST Hepatic encephalopathy (CMS/HCC) Decompensation of cirrhosis of liver (CMS/HCC) Severe alcohol use disorder, in sustained remission NICOTINE AND COTININE METABOLITE, SERUM, QUANTITATIVE Routine 12/17/2024 7:01 AM EST Hepatic encephalopathy (CMS/HCC) Decompensation of cirrhosis of liver (CMS/HCC) Severe alcohol use disorder, in sustained remission PAIN MANAGEMENT, QUANTITATIVE URINE DRUG TESTING Routine 12/17/2024 7:01 AM EST Hepatic encephalopathy (CMS/HCC) Decompensation of cirrhosis of liver (CMS/HCC) Severe alcohol use disorder, in sustained remission PROTHROMBIN TIME(PT) / INR Routine 12/17/2024 7:01 AM EST Hepatic encephalopathy (CMS/HCC) Decompensation of cirrhosis of liver (CMS/HCC) Severe alcohol use disorder, in sustained remission PAIN MANAGEMENT, QUANTITATIVE URINE DRUG TESTING Routine 12/10/2024 10:22 AM EDT Hepatic encephalopathy (CMS/HCC) Decompensation of cirrhosis of liver (CMS/HCC) ALCOHOL, URINE Routine 12/10/2024 10:22 AM EDT Hepatic encephalopathy (CMS/HCC) Decompensation of cirrhosis of liver (CMS/HCC) CBC W/O DIFFERENTIAL Routine 12/10/2024 10:22 AM EDT Hepatic encephalopathy (CMS/HCC) Decompensation of cirrhosis of liver (CMS/HCC) COMPREHENSIVE METABOLIC PANEL, PLASMA Routine 12/10/2024 10:22 AM EDT Hepatic encephalopathy (CMS/HCC) Decompensation of cirrhosis of liver (CMS/HCC) COMPREHENSIVE URINE DRUG SCREENING,QUALITATIVE ASSAY, >= 27 DRUG CLASSES Routine 12/10/2024 10:22 AM EDT Hepatic encephalopathy (CMS/HCC) Decompensation of cirrhosis of liver (CMS/HCC) NICOTINE AND COTININE METABOLITE, SERUM, QUANTITATIVE Routine 12/10/2024 10:22 AM EDT Hepatic encephalopathy (CMS/HCC) Decompensation of cirrhosis of liver (CMS/HCC) PAIN MANAGEMENT, QUANTITATIVE URINE DRUG TESTING Routine 12/10/2024 10:22 AM EDT Hepatic encephalopathy (CMS/HCC) Decompensation of cirrhosis of liver (CMS/HCC) PROTHROMBIN TIME(PT) / INR Routine 12/10/2024 10:22 AM EDT Hepatic encephalopathy (CMS/HCC) Decompensation of cirrhosis of liver (CMS/HCC) PAIN MANAGEMENT, QUANTITATIVE URINE DRUG TESTING Routine 12/03/2024 9:35 AM EDT Decompensation of cirrhosis of liver (CMS/HCC) Portal hypertension (CMS/HCC) ALCOHOL, URINE Routine 12/03/2024 9:35 AM EDT Decompensation of cirrhosis of liver (CMS/HCC) Portal hypertension (CMS/HCC) CBC W/O DIFFERENTIAL Routine 12/03/2024 9:35 AM EDT Decompensation of cirrhosis of liver (CMS/HCC) Portal hypertension (CMS/HCC) COMPREHENSIVE METABOLIC PANEL, PLASMA Routine 12/03/2024 9:35 AM EDT Decompensation of cirrhosis of liver (CMS/HCC) Portal hypertension (CMS/HCC) COMPREHENSIVE URINE DRUG SCREENING,QUALITATIVE ASSAY, >= 27 DRUG CLASSES Routine 12/03/2024 9:35 AM EDT Decompensation of cirrhosis of liver (CMS/HCC) Portal hypertension (CMS/HCC) NICOTINE AND COTININE METABOLITE, SERUM, QUANTITATIVE Routine 12/03/2024 9:35 AM EDT Decompensation of cirrhosis of liver (CMS/HCC) Portal hypertension (CMS/HCC) PAIN MANAGEMENT, QUANTITATIVE URINE DRUG TESTING Routine 12/03/2024 9:35 AM EDT Decompensation of cirrhosis of liver (CMS/HCC) Portal hypertension (CMS/HCC) PROTHROMBIN TIME(PT) / INR Routine 12/03/2024 9:35 AM EDT Decompensation of cirrhosis of liver (CMS/HCC) Portal hypertension (CMS/HCC) CBC W/O DIFFERENTIAL Routine 11/25/2024 9:50 AM EDT Spontaneous bacterial peritonitis Decompensation of cirrhosis of liver (CMS/HCC) Portal hypertension (CMS/HCC) COMPREHENSIVE METABOLIC PANEL, PLASMA Routine 11/25/2024 9:50 AM EDT Spontaneous bacterial peritonitis Decompensation of cirrhosis of liver (CMS/HCC) Portal hypertension (CMS/HCC) NICOTINE AND COTININE METABOLITE, SERUM, QUANTITATIVE Routine 11/25/2024 9:50 AM EDT Spontaneous bacterial peritonitis Decompensation of cirrhosis of liver (CMS/HCC) Portal hypertension (CMS/HCC) PROTHROMBIN TIME(PT) / INR Routine 11/25/2024 9:50 AM EDT Spontaneous bacterial peritonitis Decompensation of cirrhosis of liver (CMS/HCC) Portal hypertension (CMS/HCC) PHOSPHATIDYLETHANOL (PETH), WHOLE BLOOD, QUANTITATIVE (SO) Routine 11/25/2024 9:50 AM EDT Spontaneous bacterial peritonitis Decompensation of cirrhosis of liver (CMS/HCC) Portal hypertension (CMS/HCC) ALCOHOL, URINE Routine 11/25/2024 9:19 AM EDT Spontaneous bacterial peritonitis Decompensation of cirrhosis of liver (CMS/HCC) Portal hypertension (CMS/HCC) COMPREHENSIVE URINE DRUG SCREENING,QUALITATIVE ASSAY, >= 27 DRUG CLASSES Routine 11/25/2024 9:19 AM EDT Spontaneous bacterial peritonitis Decompensation of cirrhosis of liver (CMS/HCC) Portal hypertension (CMS/HCC) PAIN MANAGEMENT, QUANTITATIVE URINE DRUG TESTING Routine 11/11/2024 9:39 AM EDT Decompensation of cirrhosis of liver (CMS/HCC) Tobacco use disorder, continuous Alcohol use disorder, severe, dependence (CMS/HCC) ALCOHOL, URINE Routine 11/11/2024 9:39 AM EDT Decompensation of cirrhosis of liver (CMS/HCC) Tobacco use disorder, continuous Alcohol use disorder, severe, dependence (CMS/HCC) COMPREHENSIVE URINE DRUG SCREENING,QUALITATIVE ASSAY, >= 27 DRUG CLASSES Routine 11/11/2024 9:39 AM EDT Decompensation of cirrhosis of liver (CMS/HCC) Tobacco use disorder, continuous Alcohol use disorder, severe, dependence (CMS/HCC) PAIN MANAGEMENT, QUANTITATIVE URINE DRUG TESTING Routine 11/11/2024 9:39 AM EDT Decompensation of cirrhosis of liver (CMS/HCC) Tobacco use disorder, continuous Alcohol use disorder, severe, dependence (CMS/HCC) CBC W/O DIFFERENTIAL Routine 11/11/2024 8:56 AM EDT Decompensation of cirrhosis of liver (CMS/HCC) Tobacco use disorder, continuous Alcohol use disorder, severe, dependence (CMS/HCC) COMPREHENSIVE METABOLIC PANEL, PLASMA Routine 11/11/2024 8:56 AM EDT Decompensation of cirrhosis of liver (CMS/HCC) Tobacco use disorder, continuous Alcohol use disorder, severe, dependence (CMS/HCC) NICOTINE AND COTININE METABOLITE, SERUM, QUANTITATIVE Routine 11/11/2024 8:56 AM EDT Decompensation of cirrhosis of liver (CMS/HCC) Tobacco use disorder, continuous Alcohol use disorder, severe, dependence (CMS/HCC) PROTHROMBIN TIME(PT) / INR Routine 11/11/2024 8:56 AM EDT Decompensation of cirrhosis of liver (CMS/HCC) Tobacco use disorder, continuous Alcohol use disorder, severe, dependence (CMS/HCC) PHOSPHATIDYLETHANOL (PETH), WHOLE BLOOD, QUANTITATIVE (SO) Routine 11/11/2024 8:56 AM EDT Decompensation of cirrhosis of liver (CMS/HCC) Tobacco use disorder, continuous Alcohol use disorder, severe, dependence (CMS/HCC) US GUIDED ABDOMINAL PARACENTESIS Routine 11/04/2024 3:13 PM EDT Abdominal ascites TOTAL PROTEIN, PERITONEAL FLUID Routine 11/04/2024 2:47 PM EDT BODY FLUID, CYTOSPIN, PATHOLOGIST INTERPRETATION Routine 11/04/2024 2:46 PM EDT BODY FLUID CELL COUNT W/ MANUAL DIFFERENTIAL Routine 11/04/2024 2:46 PM EDT PAIN MANAGEMENT, QUANTITATIVE URINE DRUG TESTING Routine 11/04/2024 12:53 PM EDT Alcohol use disorder, severe, dependence (CMS/HCC) ETHYL GLUCURONIDE AND ETHYL SULFATE, URINE, QUANTITATIVE (SO) Routine 11/04/2024 12:53 PM EDT Alcohol use disorder, severe, dependence (CMS/HCC) PAIN MANAGEMENT, QUANTITATIVE URINE DRUG TESTING Routine 11/04/2024 12:53 PM EDT Alcohol use disorder, severe, dependence (CMS/HCC) from Last 3 Months Results * (ABNORMAL) Tacrolimus (01/20/2025 6:39 AM EST) Only the most recent of14 resultswithin the time period is included. Tacrolimus 3.0(L) 4.0 - 17.0 ng/mL 01/20/2025 11:46 AM EST [facility] Comment: Tacrolimus therapeutic range: Initial (<3 mo.) Maintenance Kidney 8-13 ng/mL 4-8 ng/mL Liver 8-13 ng/mL 4-8 ng/mL Heart 8-15 ng/mL 7-13 ng/mL Lung;Heart/Lung 8-17 ng/mL 8-13 ng/mL Blood Venous blood specimen / Unknown Venipuncture / Unknown 01/20/2025 6:39 AM EST 01/20/2025 6:57 AM EST Narrative [facility] - 01/20/2025 11:46 AM EST Test performed by LC-MS/MS at the [facility]. This test was developed and its performance characteristics determined by [facility]. It has not been cleared or approved by the FDA. The laboratory is regulated under CLIA as qualified to perform high-complexity testing. This test is used for clinical purposes. Test performed by LC-MS/MS at the [facility]. This test was developed and its performance characteristics determined by [facility]. It has not been cleared or approved by the FDA. The laboratory is regulated under CLIA as qualified to perform high-complexity testing. This test is used for clinical purposes. Satnam Beckford MD LAB BLOOD ORDERABLES Final Result [facility] [address] [place] [address] * (ABNORMAL) CBC and differential (01/20/2025 6:39 AM EST) Only the most recent of10 resultswithin the time period is included. WBC Count 7.02 3.70 - 10.30 10*3/uL LAB HEMATOLOGY METHOD 01/20/2025 7:06 AM EST [facility] RBC Count 3.09(L) 4.60 - 6.10 10*6/uL LAB HEMATOLOGY METHOD 01/20/2025 7:06 AM EST [facility] HGB 10.2(L) 13.7 - 17.5 g/dL LAB HEMATOLOGY METHOD 01/20/2025 7:06 AM EST [facility] HCT 31.9(L) 40.0 - 51.0 % LAB HEMATOLOGY METHOD 01/20/2025 7:06 AM EST [facility] Platelet Count 222 155 - 369 10*3/uL LAB HEMATOLOGY METHOD 01/20/2025 7:06 AM [facility] MCV 103(H) 79 - 98 fL LAB HEMATOLOGY METHOD 01/20/2025 7:06 AM [facility] MCH 33.0(H) 26.0 - 32.0 pg LAB HEMATOLOGY METHOD 01/20/2025 7:06 AM [facility] MCHC 32.0 30.7 - 35.5 g/dL LAB HEMATOLOGY METHOD 01/20/2025 7:06 AM [facility] RDW 21.2(H) 11.5 - 14.5 % LAB HEMATOLOGY METHOD 01/20/2025 7:06 AM [facility] MPV 9.6 8.8 - 12.5 fL LAB HEMATOLOGY METHOD 01/20/2025 7:06 AM [facility] nRBC 0.0 <=0.0 per 100 WBCs LAB HEMATOLOGY METHOD 01/20/2025 7:06 AM [facility] Differential Type Automated LAB HEMATOLOGY METHOD 01/20/2025 7:06 AM [facility] Neutrophils % 79 % LAB HEMATOLOGY METHOD 01/20/2025 7:06 AM [facility] Lymphocytes % 13 % LAB HEMATOLOGY METHOD 01/20/2025 7:06 AM [facility] Monocytes % 6 % LAB HEMATOLOGY METHOD 01/20/2025 7:06 AM [facility] Eosinophils % 2 % LAB HEMATOLOGY METHOD 01/20/2025 7:06 AM [facility] Basophils % 0 % LAB HEMATOLOGY METHOD 01/20/2025 7:06 AM [facility] Immature Granulocytes % 0 % LAB HEMATOLOGY METHOD 01/20/2025 7:06 AM [facility] Neutrophils Absolute 5.55 1.60 - 6.10 10*3/uL LAB HEMATOLOGY METHOD 01/20/2025 7:06 AM [facility] Lymphocytes Absolute 0.93(L) 1.20 - 3.90 10*3/uL LAB HEMATOLOGY METHOD 01/20/2025 7:06 AM [facility] Monocytes Absolute 0.40 0.30 - 0.90 10*3/uL LAB HEMATOLOGY METHOD 01/20/2025 7:06 AM [facility] Eosinophils Absolute 0.11 0.00 - 0.50 10*3/uL LAB HEMATOLOGY METHOD 01/20/2025 7:06 AM EST [facility] Basophils Absolute 0.01 0.00 - 0.10 10*3/uL LAB HEMATOLOGY METHOD 01/20/2025 7:06 AM EST [facility] Immature Granulocytes Absolute 0.02 0.00 - 0.06 10*3/uL LAB HEMATOLOGY METHOD 01/20/2025 7:06 AM EST [facility] Blood Venous blood specimen / Unknown Venipuncture / Unknown 01/20/2025 6:39 AM EST 01/20/2025 6:57 AM EST Narrative [facility] - 01/20/2025 7:06 AM EST Therapeutic decision making should be based on absolute values, rather than percentages. Satnam Beckford MD LAB BLOOD ORDERABLES Final Result Performing Organization Address City/[facility]/ZIP Co de Phone Number [facility] [address] [place] [address] * (ABNORMAL) Magnesium (01/20/2025 6:39 AM EST) Only the most recent of26 resultswithin the time period is included. Magnesium, Plasma 1.5(L) 1.9 - 2.4 mg/dL 01/20/2025 7:27 AM EST [facility] Blood Venous blood specimen / Unknown Venipuncture / Unknown 01/20/2025 6:39 AM EST 01/20/2025 6:55 AM EST Satnam Beckford MD LAB BLOOD ORDERABLES Final Result [facility] [address] [place] [address] * (ABNORMAL) GGT (01/20/2025 6:39 AM EST) GGT, Plasma 184(H) 8 - 61 U/L 01/20/2025 7:27 AM EST [facility] Blood Venous blood specimen / Unknown Venipuncture / Unknown 01/20/2025 6:39 AM EST 01/20/2025 6:55 AM EST us Satnam Beckford MD LAB BLOOD ORDERABLES Final Result [facility] [address] [place] [address] * (ABNORMAL) Comprehensive metabolic panel (01/20/2025 6:39 AM EST) Only the most recent of35 resultswithin the time period is included. Glucose, Plasma 62(L) 74 - 99 mg/dL 01/20/2025 7:27 AM EST [facility] BUN, Plasma 25(H) 7 - 21 mg/dL 01/20/2025 7:27 AM EST [facility] Creatinine, Plasma 0.92 0.70 - 1.20 mg/dL 01/20/2025 7:27 AM EST [facility] BUN/Creatinine Ratio 27 01/20/2025 7:27 AM EST [facility] Sodium, Plasma 143 136 - 145 mmol/L 01/20/2025 7:27 AM EST [facility] Potassium, Plasma 4.2 3.6 - 4.9 mmol/L 01/20/2025 7:27 AM EST [facility] Chloride, Plasma 108(H) 97 - 107 mmol/L 01/20/2025 7:27 AM EST [facility] CO2, Plasma 23 22 - 29 mmol/L 01/20/2025 7:27 AM EST [facility] Anion Gap 12 6 - 16 mmol/L 01/20/2025 7:27 AM EST [facility] Total Calcium, Plasma 8.7(L) 8.9 - 10.2 mg/dL 01/20/2025 7:27 AM EST [facility] Total Protein 5.5(L) 6.3 - 7.9 g/dL 01/20/2025 7:27 AM EST [facility] Albumin, Plasma 3.2(L) 3.5 - 5.2 g/dL 01/20/2025 7:27 AM EST [facility] AST, Plasma 25 10 - 50 U/L 01/20/2025 7:27 AM EST [facility] ALT, Plasma 64(H) 10 - 50 U/L 01/20/2025 7:27 AM EST [facility] Alkaline Phosphatase, Plasma 98 40 - 115 U/L 01/20/2025 7:27 AM EST [facility] Total Bilirubin, Plasma 3.4(H) 0.2 - 1.1 mg/dL 01/20/2025 7:27 AM EST [facility] eGFRcr 103.9 mL/min/1.7 3m*2 01/20/2025 7:27 AM EST [facility] Comment:Reported eGFRcr in m L/min/1.73m2 is based the CKD-EPI 2020 equation that does not use a race coefficient. Blood Venous blood specimen / Unknown Venipuncture / Unknown 01/20/2025 6:39 AM EST 01/20/2025 6:55 AM EST Satnam Beckford MD LAB BLOOD ORDERABLES Final Result [facility] [address] [place] [address] * (ABNORMAL) POCT glucose meter (01/16/2025 12:01 PM EST) Only the most recent of72 resultswithin the time period is included. POCT Glucose 158(H) 74 - 99 mg/dL 01/16/2025 12:04 PM EST [facility] Comment:Accuracy of a glucos e result [...] for testing. Comment 01/16/2025 12:04 PM EST [facility] Electro Mechanic ID Shonda Kimbrough Augie 12:04 PM EST [facility] Device ID [id number] 01/16/2025 12:04 PM EST LAB Specimen Type POC Capillary 01/16/2025 12:04 PM EST LAB Blood Capillary blood specimen / Unknown 01/16/2025 12:01 PM EST 01/16/2025 12:04 PM EST us Satnam Beckford MD LAB POINT OF CARE T EST DOCKED DEVICE UNSOLICITED RESULTS Final Result Performing Organization Address City/[facility]/ZIP Co de Phone Number LAB [address] [place] [address] * (ABNORMAL) Prothrombin Time/INR (01/16/2025 4:47 AM EST) Only the most recent of40 resultswithin the time period is included. Prothrombin Time 14.6(H) 12.0 - 14.3 sec LAB COAGULATION METHOD 01/16/2025 5:22 AM EST [facility] INR 1.1 0.9 - 1.1 LAB COAGULATION METHOD 01/16/2025 5:22 AM EST [facility] Blood Venous blood specimen / Unknown Venipuncture / Unknown 01/16/2025 4:47 AM EST 01/16/2025 4:56 AM EST Narrative [facility] - 01/16/2025 5:22 AM EST OPTIMAL INR RANGES FOR PATIENT ON ORAL ANTICOAGULANT THERAPY Prevention of venous thromboembolism INR 2.0 to 3.0 In patients with heart disease: Atrial fibrillation INR 2.0 to 3.0 Valvular heart disease INR 2.0 to 3.0 Tissue heart valves INR 2.0 to 3.0 Mechanical prosthetic valves INR 2.5 to 3.5 Prevention of recurrent TX INR 2.5 to 3.5 us Maciel Olson MD LAB BLOOD ORDERABLES Final Resul t [facility] [address] [place] [id number] * (ABNORMAL) CBC W/O Differential (01/16/2025 4:47 AM EST) Only the most recent of30 resultswithin the time period is included. WBC Count 8.27 3.70 - 10.30 10*3/uL LAB HEMATOLOGY METHOD 01/16/2025 5:03 AM EST [facility] RBC Count 2.56(L) 4.60 - 6.10 10*6/uL LAB HEMATOLOGY METHOD 01/16/2025 5:03 AM EST [facility] HGB 8.3(L) 13.7 - 17.5 g/dL LAB HEMATOLOGY METHOD 01/16/2025 5:03 AM EST [facility] HCT 26.1(L) 40.0 - 51.0 % LAB HEMATOLOGY METHOD 01/16/2025 5:03 AM EST [facility] Platelet Count 124(L) 155 - 369 10*3/uL LAB HEMATOLOGY METHOD 01/16/2025 5:03 AM EST [facility] MCV 102(H) 79 - 98 fL LAB HEMATOLOGY METHOD 01/16/2025 5:03 AM EST [facility] MCH 32.4(H) 26.0 - 32.0 pg LAB HEMATOLOGY METHOD 01/16/2025 5:03 AM EST [facility] MCHC 31.8 30.7 - 35.5 g/dL LAB HEMATOLOGY METHOD 01/16/2025 5:03 AM EST [facility] RDW 24.0(H) 11.5 - 14.5 % LAB HEMATOLOGY METHOD 01/16/2025 5:03 AM EST [facility] MPV 10.3 8.8 - 12.5 fL LAB HEMATOLOGY METHOD 01/16/2025 5:03 AM EST [facility] nRBC 0.0 <=0.0 per 100 WBCs LAB HEMATOLOGY METHOD 01/16/2025 5:03 AM EST [facility] Blood Venous blood specimen / Unknown Venipuncture / Unknown 01/16/2025 4:47 AM EST 01/16/2025 4:56 AM EST Maciel Olson MD LAB BLOOD ORDERABLES Final Resul t [facility] [address] [place] [address] * Phosphorus (01/16/2025 4:47 AM EST) Only the most recent of24 resultswithin the time period is included. Phosphorus, Plasma 4.0 2.5 - 4.5 mg/dL 01/16/2025 5:24 AM EST [facility] Blood Venous blood specimen / Unknown Venipuncture / Unknown 01/16/2025 4:47 AM EST 01/16/2025 4:56 AM EST us Maciel Olson MD LAB BLOOD ORDERABLES Final Resul t [facility] [address] [place] [address] * US Guided Needle Biopsy Liver (01/13/2025 [...] transplant with elevated LFTs and hyperbilirubinemia. TECHNIQUE: Radiological Technician: Ghislaine Borges APRN Secondary Electro Mechanic: None. Medications: IV conscious sedation with continuous physiologic monitoring provided by a qualified healthcare professional using Versed 1 mg IV and Fentanyl 50mcg IV. 1% Lidocaine SQ. Antibiotics: N/A Duration of Conscious Sedation: Time out: 4179 Procedure: After discussion of risks and benefits, [...] liver transplant with elevated LFTs andhyperbilirubinemia. TECHNIQUE: Radiological Technician: Ghislaine Borges APRN Secondary Electro Mechanic: None. Medications: IV conscious sedation with continuous [...] MD on 01/15/2025 7:12 AM us Vanda E Andrez DAY CARE ATTENDANT, DNP IMG US PROCEDURES Tami l Result * Surgical Pathology Exam (01/13/2025 4:16 PM EST) Only the most recent of2 resultswithin the time period is included. Case Report Surgical Pathology Case: [id number] Authorizing Provider: Satnam Beckford MD Collected: 01/13/2025 1616 Ordering Location: [facility] A Inpatient Received: 01/13/2025 1659 Pathologist: Danny Pichardo MD Specimen: Liver 5 5:27 PM EST [facility] Final Diagnosis A. LIVER, ALLOGRAFT, CORE NEEDLE BIOPSY: - ACUTE CHOLANGITIS WITH ASSOCIATED CHOLESTASIS. - ACUTE CELLULAR REJECTION WITH TREATMENT EFFECT. - SEE COMMENT AND MICROSCOPIC DESCRIPTION. 5 5:27 PM EST [facility] at 1727 EST Comment Preliminary results were communicated to Dr. Beckford, via e-mail by Dr. Pichardo on 01/14/2025. 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 5 5:27 PM [facility] Special and Immunohistochemical Stains Special Stain: A1-4 Michael Trichrome Stain: performed and interpreted. IHC: A1-5 CMV: negative staining. A1-6 CK7: performed and interpreted. A2-2 CMV: negative staining. A2-3 CK7: performed and interpreted. All controls show appropriate reactivity. All immunohistochemist ry, in situ hybridization, and histochemical tests were developed by and are performed at the [facility], [address] [place] [address]. All tests reported here, except those addressing [...] negativity on decalcified specimens. 5 5:27 PM [facility] Gross Description A. LIVER Received in formalin labeled l iver , are 3 yellow-green soft tissue cores that range from 1.4-1.6 cm in length and up to 0.1 cm in diameter. Entirely submitted in cassettes A1 to A2. Cold Time: 0 Adilene B Pettey 5:27 PM EST [facility] Note: A resident was involved in the service. I attest I examined the relevant preparations for the specimens and confirmed the diagnosis or interpretation. 5:27 PM EST [facility] Tissue Liver structure / Unknown Non-blood Collection / Unknown 01/13/2025 4:16 PM EST 01/13/2025 4:59 PM EST Comment:TAVERA path please Satnam Beckford MD LAB PATHOLOGY ORDERAB[place] [address] * Herpes Simplex Virus by PCR (Serum) (01/13/2025 10:59 AM EST) Herpes Simplex Virus 1 (HSV-1) PCR Result Not Detected Not Detected 01/14/2025 2:21 PM EST [facility] Herpes Simplex Virus 2 (HSV-2) PCR Result Not Detected Not Detected 01/14/2025 2:21 PM EST [facility] Serum Venous blood specimen / Unknown 01/13/2025 10:59 AM EST 01/13/2025 1:47 PM EST Narrative [facility] - 01/14/2025 2:21 PM EST This PCR assay was developed and its performance characteristics determined by [facility] as appropriate for clinical purposes. This assay has not been cleared or approved by the FDA, but is performed in a CLIA regulated laboratory that is qualified to perform high-complexity testing. Satnam Beckford MD LAB MICROBIOLOGY - GENERAL ORDERABLES Final Result Performing Organization Address City/[facility]/ZIP Co de Phone Number [facility] [address] [place] [address] * Shailesh Suárez Virus (EBV) Quantitative PCR (01/13/2025 10:59 AM EST) Shailesh Suárez Virus, Blood, Quant DNA Interpretation Not Detected Not Detected 01/14/2025 8:41 AM EST [facility] Blood Venous blood specimen / Unknown Venipuncture / Unknown 01/13/2025 10:59 AM EST 01/13/2025 11:13 AM EST Narrative [facility] - 01/14/2025 8:41 AM [...] developed and it's performance characteristics determined by [facility] as appropriate for clinical purposes. [...] developed and it's performance characteristics determined by [facility] as appropriate for clinical purposes. This assay has not been cleared or approved by the FDA, but is performed in a CLIA regulated laboratory that is qualified to perform high-complexity testing. us Satnam Beckford MD LAB BLOOD ORDERABLES Final Result [facility] [address] [place] [address] * Cytomegalovirus (CMV) Quantitative PCR (01/13/2025 10:59 AM EST) Cytomegalovirus (CMV) Quantitative Interpretation Not Detected Not Detected 01/14/2025 2:52 PM EST [facility] Blood Venous blood specimen / Unknown Venipuncture / Unknown 01/13/2025 10:59 AM EST 01/13/2025 11:13 AM EST Narrative [facility] - 01/14/2025 2:52 PM EST [facility] [...] BLOOD ORDERABLES Final Result Performing Organization Address [facility] [place] [address] * (ABNORMAL) Bilirubin, direct (01/13/2025 4:43 AM EST) Direct Bilirubin, Plasma 8.3(H) <=0.3 mg/dL 01/13/2025 11:13 AM EST [facility] Blood Venous blood specimen / Unknown Venipuncture / Unknown 01/13/2025 4:43 AM EST 01/13/2025 4:51 AM EST Félix Simmons APRN, PATTI LAB BLOOD ORDERA BLES Final Result Performing Organization Address [facility] Co de Phone Number [address] [address] * [place] ERC (2025 12:59 PM EST) Narrative IMAGING - 2025 2:38 PM EST Images were obtained for surgical purposes. See Parmjit Garcia's surgical note in the patient's chart for the findings. Parmjit Garcia MD IMG FLUOROSCOPY PROCEDURES Fin al Result Performing Organization Address [facility] Co de Phone Number IMAGING * ERCP [...] anesthesia administered medications. Staff Staff Role Angelo-Florencio Kearns, DEMETRIA Endo Nurse Yari Henderson RN Endo Nurse Da De MD Anesthesiologist Bethany Ayers CRNA CRNA Plentz, Ruben R, MD Proceduralist Yi Reese Endo Drawer In Rell Vivas MD Proceduralist Preprocedure A history [...] and ampullary region appeared normal. ERCP: The certified endoscopy technician film showed manju. The duodenoscope was passed under direct vision through the mouth and advanced to the second portion of the duodenum. The major papilla was visualized. The major papilla was [place]. Endo-biliary stent placed during transplant no longer [...] GI PROCEDURE ORDERABLES Final Re sult * [place] AN ELECTIVE ENDOTRACHEAL AIRWAY, [place] ANESTHESIA PLACEHOLDER (2025 11:59 AM EST) Narrative Bethany Ayers CRNA - 2025 11:59 AM EST Bethany Ayers CRNA 2025 12:20 PM Airway Date/Time: 2025 11:59 AM Reason: elective Airway not difficult General Information and Staff Patient location during procedure: OR ADVANCED RESEARCH PROGRAMS DIRECTOR: Bethany Ayesr CRNA Performed: ADVANCED RESEARCH PROGRAMS DIRECTOR Patient Condition Indications for airway management: anesthesia [...] ANESTHESIA ORDERABLES Edited Re sult - Final * MRCP w and wo IV Contrast [...] using the following sequences: coronal single shot [id number] fast spin echo, axial T2 weighted sequences [...] Abdomen Doppler Complete (01/10/2025 11:30 AM EST) Only the most recent of2 resultswithin the time period is included. Anatomical Region Laterality Modality Abdomen Ultrasound Impressions [...] MD IMG US PROCEDURES Final Result * Lavender Top (01/09/2025 5:13 AM EST) Only the most recent of3 resultswithin the time period is included. Extra Hold for add-ons 01/09/2025 8:01 AM EST [facility] Comment:Auto resulted. Blood Venous blood specimen / Unknown 01/09/2025 5:13 AM EST 01/09/2025 5:13 AM EST us Maciel Olson MD LAB BLOOD ORDERABLES Final Resul t [facility] [address] [place] [address] * Light Green Top (01/09/2025 5:13 AM EST) Only the most recent of2 resultswithin the time period is included. Extra Hold for add-ons 01/09/2025 8:01 AM EST [facility] Comment:Auto resulted. Blood Venous blood specimen / Unknown 01/09/2025 5:13 AM EST 01/09/2025 5:13 AM EST Maciel Olson MD LAB BLOOD ORDERABLES Final Resul t Performing Organization Address City/[facility]/ZIP Co de Phone Number [facility] [address] [place] [address] * XR Chest 1 View (01/08/2025 12:15 PM EST) Only the most recent of5 resultswithin the time period is included. Anatomical Region Laterality Modality Chest Digital Radiogra [...] MD IMG XR PROCEDURES Final Result * XR Abdomen 1 View (01/06/2025 8:47 AM EST) Only the most recent of3 resultswithin the time period is included. Anatomical Region Laterality Modality Body Digital Radiogra [...] MD on 01/06/2025 9:33 AM Kamila Bashir DAY CARE ATTENDANT IMG XR PROCEDURES Final Resu lt * Multi Drug Resistance Test (01/05/2025 6:40 PM EST) Only the most recent of2 resultswithin the time period is included. Culture No growth at day 1 01/06/2025 8:52 PM EST [facility] Swab (Nares and Lauren Rectal) 01/05/2025 6:40 PM EST 01/05/2025 6:43 PM EST Narrative [facility] - 01/06/2025 8:52 PM EST This test was developed and its performance characteristics determined by the [facility]. Although the media is FDA-approved, it is not FDA-approved for all specimen types submitted. The FDA has determined that such clearance or approval is not necessary. This test is used for surveillance purposes. It should not be regarded as investigational or for research. The [facility] is certified under the Clinical Laboratory Improvement Amendments of 1988 (CLIA-88) as qualified to perform high complexity clinical laboratory testing. Diego Gray MD LAB MICROBIOLOGY - GEN ERAL ORDERABLES Final Result [facility] [address] [place] [address] * [place] CRITICAL CARE, E/M 30-74 MINUTES (01/05/2025 11:03 [...] IN CLINIC/BEDSIDE ORDERAB LES Final Result * Transfuse RBC (01/05/2025 5:53 AM EST) Only the most recent of16 resultswithin the time period is included. us Kelvin Zapata APRN BLOOD TRANSFUSION ORDERAB LES Final Result * Prepare Leukocyte Reduced RBC: 1 Units (01/05/2025 4:19 AM EST) Only the most recent of8 resultswithin the time period is included. Product Code [id number] BLOO D BANK Dispense Status Transfused BLOOD BANK Blood Expiration Date [id number] BLOOD BANK Unit Number [id number] CH B LOOD BANK Product Blood Type 0600 BLOOD BANK Blood Type A- BLOOD BANK Crossmatch Compatible BLOOD BANK Other Kelvin Zapata DAY CARE ATTENDANT BLOOD BANK PRODUCT ORDERA BLES Final Result Performing Organization Address City/[facility] Co de Phone Number BLOOD BANK [address] * Transfuse fresh frozen plasma (01/04/2025 2:20 PM EST) Only the most recent of11 resultswithin the time period is included. Camilla Soto APRN, PATTI BLOOD TRANSFUSION ORDERAB LES Final Result * Transfuse platelets (01/04/2025 12:11 PM EST) Only the most recent of2 resultswithin the time period is included. Camilla Soto APRN, DNP BLOOD TRANSFUSION ORDERAB LES Final Result * (ABNORMAL) Hemoglobin and Hematocrit, Blood (01/04/2025 11:46 AM EST) Only the most recent of7 resultswithin the time period is included. HGB 8.5(L) 13.7 - 17.5 g/dL LAB HEMATOLOGY METHOD 01/04/2025 12:00 PM EST [facility] HCT 25.0(L) 40.0 - 51.0 % LAB HEMATOLOGY METHOD 01/04/2025 12:00 PM EST [facility] Blood Venous blood specimen / Unknown Venipuncture / Unknown 01/04/2025 11:46 AM EST 01/04/2025 11:52 AM EST Satnam Beckford MD LAB BLOOD ORDERABLES Final Result [facility] [address] [place] [address] * US Abdomen Focused Region Liver (01/04/2025 [...] Platelets: 1 Units (01/04/2025 10:15 AM EST) Only the most recent of2 resultswithin the time period is included. Product Code [id number] BLOO D BANK Dispense Status Transfused BLOOD BANK Blood Expiration Date [id number] BLOOD BANK Unit Number [id number] CH B LOOD BANK Product Blood Type 0600 BLOOD BANK Blood Type A- BLOOD BANK Blood Venous blood specimen / Unknown Camilla Soto APRN, DNP BLOOD BANK PRODUCT ORDERA BLES Final Result Performing Organization Address City/State/[facility] de Phone Number BLOOD BANK [address] [place] [address], * [place] CRITICAL CARE, E/M 30-74 MINUTES (01/04/2025 9:16 [...] Plasma: 1 Units (01/04/2025 8:51 AM EST) Only the most recent of5 resultswithin the time period is included. Product Code [id number] BLOO D BANK Dispense Status Transfused BLOOD BANK Blood Expiration Date [id number] BLOOD BANK Unit Number [id number] B LOOD BANK Product Blood Type 8400 BLOOD BANK Blood Type AB+ BLOOD BANK Blood Venous blood specimen / Unknown Camilla Soto APRN, DNP BLOOD BANK PRODUCT ORDERA BLES Final Result Performing Organization Address City/[facility]/ZIP Co de Phone Number BLOOD BANK [address] * (ABNORMAL) TEG Global Hemostasis with Lysis (01/04/2025 8:17 AM EST) Only the most recent of5 resultswithin the time period is included. Pathologist [facility] R, Lysis 7.2 4.6 - 9.1 min 01/04/2025 9:39 AM EST [facility] MA, Rapid, Lysis <40.0(L) 52.0 - 70.0 mm 01/04/2025 9:39 AM EST [facility] MA, Fibrinogen, Lysis 8.7(L) 15.0 - 32.0 mm 01/04/2025 9:39 AM EST [facility] LY30 0.0 0.0 - 2.6 % 01/04/2025 9:39 AM EST [facility] Blood Arterial blood specimen / Unknown Arterial Line / Unknown 01/04/2025 8:17 AM EST 01/04/2025 8:29 AM EST us Rivka Gonzalez APRN LAB BLOOD ORDERABLES Fin al Result [facility] [address] [place] [address] * Tylor auris Surveillance by PCR (01/03/2025 4:09 PM EST) Pathologist [facility] Tylor auris PCR Result Not Detected Not Detected 01/04/2025 11:52 AM EST [facility] Swab (Axilla and Groin) Non-blood Collection / Unknown 01/03/2025 4:09 PM EST 01/03/2025 4:28 PM EST Narrative [facility] - 01/04/2025 11:52 AM EST This PCR assay was developed and its performance characteristics determined by [facility] as appropriate for clinical purposes. This assay has not been cleared or approved by the FDA, but is performed in a CLIA regulated laboratory that is qualified to perform high-complexity testing. Satnam Beckford MD LAB MICROBIOLOGY - GENERAL ORDERABLES Final Result [facility] [address] [place] [address] * (ABNORMAL) Blood gas panel with oximetry, mixed venous (01/03/2025 3:47 PM EST) pH, Mixed Venous 7.31(L) 7.32 - 7.43 LAB HEMATOLOGY METHOD 01/03/2025 3:56 PM EST [facility] pCO2, Mixed Venous 42 40 - 55 mmHg LAB HEMATOLOGY METHOD 01/03/2025 3:56 PM EST [facility] pO2, Mixed Venous 53(H) 25 - 40 mmHg LAB HEMATOLOGY METHOD 01/03/2025 3:56 PM EST [facility] SO2, Measured, Mixed Venous 87(H) 65 - 80 % LAB HEMATOLOGY METHOD 01/03/2025 3:56 PM EST [facility] Bicarbonate, Calculated, Mixed Venous 21(L) 22 - 26 mmol/L LAB HEMATOLOGY METHOD 01/03/2025 3:56 PM EST [facility] Base Excess, Mixed Venous -5.1(L) -2.0 - 3.0 mmol/L LAB HEMATOLOGY METHOD 01/03/2025 3:56 PM EST [facility] Hematocrit, Whole Blood 26.4(L) 40.0 - 51.0 % LAB HEMATOLOGY METHOD 01/03/2025 3:56 PM EST [facility] Sodium, Whole Blood 140 136 - 145 mmol/L LAB HEMATOLOGY METHOD 01/03/2025 3:56 PM EST [facility] Potassium, Whole Blood 4.5 3.6 - 4.9 mmol/L LAB HEMATOLOGY METHOD 01/03/2025 3:56 PM EST [facility] Chloride, Whole Blood 115(H) 97 - 107 mmol/L LAB HEMATOLOGY METHOD 01/03/2025 3:56 PM EST [facility] Ionized Calcium, Whole Blood 5.2(H) 4.6 - 5.1 mg/dL LAB HEMATOLOGY METHOD 01/03/2025 3:56 PM EST [facility] Glucose, Whole Blood 145(H) 74 - 99 mg/dL LAB HEMATOLOGY METHOD 01/03/2025 3:56 PM EST [facility] Oxyhemoglobin, Mixed Venous, Whole Blood 82.3(H) 40.0 - 70.0 % LAB HEMATOLOGY METHOD 01/03/2025 3:56 PM EST [facility] Hemoglobin Reduced, Mixed Venous, Whole Blood 12.6 % LAB HEMATOLOGY METHOD 01/03/2025 3:56 PM EST [facility] Total Hemoglobin, Mixed Venous, Whole Blood 8.6(L) 13.7 - 17.5 g/dL LAB HEMATOLOGY METHOD 01/03/2025 3:56 PM EST [facility] Blood Mixed venous blood specimen / Unknown Venipuncture / Unknown 01/03/2025 3:47 PM EST 01/03/2025 3:54 PM EST us Satnam Beckford MD LAB BLOOD ORDERABLES Final Result Performing Organization Address City/State/[facility] Co de Phone Number [facility] [address] [place] [address] * [place] CRITICAL CARE, E/M 30-74 MINUTES (01/03/2025 3:18 [...] review of radiographic studies and ventilator management us Camilla Soto APRN, DNP IN CLINIC/BEDSIDE ORDERAB LES Final Result * (ABNORMAL) Blood gas, arterial (01/03/2025 2:56 PM EST) pH, Arterial 7.31(L) 7.35 - 7.45 LAB HEMATOLOGY METHOD 01/03/2025 3:02 PM EST [facility] pCO2, Arterial 41 32 - 45 mmHg LAB HEMATOLOGY METHOD 01/03/2025 3:02 PM EST [facility] pO2, Arterial 107 83 - 108 mmHg LAB HEMATOLOGY METHOD 01/03/2025 3:02 PM [facility] SO2, Measured, Arterial 99(H) 94 - 98 % LAB HEMATOLOGY METHOD 01/03/2025 3:02 PM [facility] Base Excess, Arterial -5.2(L) -2.0 - 3.0 mmol/L LAB HEMATOLOGY METHOD 01/03/2025 3:02 PM [facility] Bicarbonate, Calculated, Arterial 21(L) 22 - 26 mmol/L LAB HEMATOLOGY METHOD 01/03/2025 3:02 PM [facility] Hematocrit, Whole Blood 25.7(L) 40.0 - 51.0 % LAB HEMATOLOGY METHOD 01/03/2025 3:02 PM [facility] Sodium, Whole Blood 139 136 - 145 mmol/L LAB HEMATOLOGY METHOD 01/03/2025 3:02 PM [facility] Potassium, Whole Blood 4.6 3.6 - 4.9 mmol/L LAB HEMATOLOGY METHOD 01/03/2025 3:02 PM [facility] Chloride, Whole Blood 115(H) 97 - 107 mmol/L LAB HEMATOLOGY METHOD 01/03/2025 3:02 PM [facility] Glucose, Whole Blood 146(H) 74 - 99 mg/dL LAB HEMATOLOGY METHOD 01/03/2025 3:02 PM [facility] Ionized Calcium, Whole Blood 5.1 4.6 - 5.1 mg/dL LAB HEMATOLOGY METHOD 01/03/2025 3:02 PM [facility] Lactate, Arterial, Whole Blood 1.7(H) 0.5 - 1.6 mmol/L LAB HEMATOLOGY METHOD 01/03/2025 3:02 PM [facility] Blood Arterial blood specimen / Unknown Arterial Puncture / Unknown 01/03/2025 2:56 PM EST 01/03/2025 3:01 PM EST us Satnam Beckford MD LAB BLOOD ORDERABLES Final Result Performing Organization Address City/[facility]/ZIP Co de Phone Number [facility] [address] [place] [address] * (ABNORMAL) APTT (01/03/2025 2:54 PM EST) Only the most recent of5 resultswithin the time period is included. aPTT 48(H) 25 - 35 sec LAB COAGULATION METHOD 01/03/2025 3:52 PM EST [facility] Blood Venous blood specimen / Unknown Venipuncture / Unknown 01/03/2025 2:54 PM EST 01/03/2025 3:01 PM EST us Josafat Rivera MD LAB BLOOD ORDERABLES Final Res ult Performing Organization Address [facility] Co de Phone Number [facility] [address] [place] [address] * (ABNORMAL) Fibrinogen (01/03/2025 2:54 PM EST) Only the most recent of4 resultswithin the time period is included. Fibrinogen, Quantitative (Clottable) 134(L) 208 - 459 mg/dL LAB COAGULATION METHOD 01/03/2025 3:52 PM EST [facility] Blood Venous blood specimen / Unknown Venipuncture / Unknown 01/03/2025 2:54 PM EST 01/03/2025 3:01 PM EST us Josafat Rivera MD LAB BLOOD ORDERABLES Final Res ult Performing Organization Address City/[facility]/ZIP Co de Phone Number [facility] [address] [place] [address] * (ABNORMAL) POCT arterial blood gas gem (01/03/2025 2:13 PM EST) Only the most recent of11 resultswithin the time period is included. pH, Arterial 7.34(L) 7.35 - 7.45 01/03/2025 2:14 PM [facility] pCO2, Arterial 35 32 - 45 mm Hg 01/03/2025 2:14 PM [facility] pO2, Arterial 159(H) 83 - 108 mm Hg 01/03/2025 2:14 PM [facility] SO2, Arterial 99(H) 94 - 98 % 01/03/2025 2:14 PM [facility] Base Excess, Arterial -6.3(L) -2 - 3 mmol/L 01/03/2025 2:14 PM [facility] HCO3, Arterial 18.9(L) 22 - 26 mmol/L 01/03/2025 2:14 PM [facility] Total Hemoglobin, Arterial, Whole Blood 8.1(L) 13.7 - 17.5 g/dL 01/03/2025 2:14 PM [facility] Hematocrit, Arterial 24.0(L) 40 - 51.0 % 01/03/2025 2:14 PM [facility] Sodium, Arterial 139 136 - 145 mmol/L 01/03/2025 2:14 PM [facility] Potassium, Arterial 4.8 3.6 - 4.9 mmol/L 01/03/2025 2:14 PM [facility] Chloride, Whole Blood 112(H) 97 - 107 mmol/L 01/03/2025 2:14 PM [facility] Glucose, Arterial 165(H) 74 - 99 mg/dL 01/03/2025 2:14 PM [facility] Ionized Calcium, Arterial 5.4(H) 4.6 - 5.1 mg/dL 01/03/2025 2:14 PM [facility] Lactate, Arterial 1.5 0.5 - 1.6 mmol/L 01/03/2025 2:14 PM [facility] Body Temperature 37.0 Celsius 01/03/2025 2:14 PM [facility] pH, Temp Corrected, Arterial 7.34(L) 7.35 - 7.45 01/03/2025 2:14 PM [facility] pCO2, Temp Corrected, Arterial 35 32 - 45 mm Hg 01/03/2025 2:14 PM [facility] pO2, Temp Corrected, Arterial 159(H) 83 - 108 mm Hg 01/03/2025 2:14 PM EST LAB Electro Mechanic ID Ronnie Jackson 01/03/2025 2:14 PM EST LAB Blood Whole blood specimen / Unknown 01/03/2025 2:13 PM EST 01/03/2025 2:14 PM EST Satnam Beckford MD LAB POINT OF CARE T EST DOCKED DEVICE UNSOLICITED RESULTS Final Result Performing Organization Address City/[facility] Co de Phone Number LAB [address] [place] [address] * Exception to Standard Practice, Pathologist Interpretation [...] ORDERABLES F inal Result Performing Organization Address City/[facility]/ZIP Co de Phone Number BLOOD BANK [address] [place] [address] * (ABNORMAL) Platelet Count, Blood (01/03/2025 11:46 AM EST) Only the most recent of2 resultswithin the time period is included. Platelet Count 52(L) 155 - 369 10*3/uL LAB HEMATOLOGY METHOD 01/03/2025 11:59 AM EST [facility] Blood Arterial blood specimen / Unknown 01/03/2025 11:46 AM EST 01/03/2025 11:51 AM EST Comment:Pre-op diagnosis: Decompensation of cirrhosis of liver (CMS/HCC) [K72.90, K74.60] us Josafat Rivera MD LAB BLOOD [place] [address] * [place] ANESTHESIA NON-TIMED PROCEDURE PLACEHOLDER (01/03/2025 [...] MD ANESTHESIA ORDERABLES Final Re sult * (ABNORMAL) QSTAT (01/03/2025 8:01 AM EST) Clot Time 182(H) 121 - 175 Seconds 01/03/2025 8:42 AM EST [facility] [employer] [facility] Clot Stability To Lysis 98 92 [...] 01/03/2025 8:42 AM EST [facility] Electro Mechanic ID [id number] 01/03/2025 8:42 AM EST [facility] Device ID [id number] 01/03/2025 8:42 AM EST [facility] Blood Venous blood specimen / Unknown 01/03/2025 8:01 AM EST 01/03/2025 8:42 AM EST Narrative [facility] - 01/03/2025 8:42 AM EST ProfileName= us Satnam Beckford MD LAB POINT OF CARE T EST DOCKED DEVICE UNSOLICITED RESULTS Final Result Performing Organization Address City/State/[facility] de Phone Number [facility] [address] [place] [address] * Peripheral IV (01/03/2025 7:30 AM EST) Josafat Ardon MD - 01/03/2025 7:30 AM EST Josafat Rivera MD 01/03/2025 8:36 AM Peripheral IV Date/Time: 01/03/2025 7:30 AM Placement Needle size: 18 G Location: hand Site prep: alcohol Technique: anatomical landmarks Attempts: 1 us Josafat Rivera MD ANESTHESIA ORDERABLES Final Re sult * [place] AN CENTRAL LINE TRIPLE LUMEN, PB ANESTHESIA NON-TIMED PROCEDURE PLACEHOLDER, ANESTHESIA ULTRASOUND GUIDED (01/03/2025 7:30 AM EST) Josafat Ardon MD - 01/03/2025 7:30 AM EST Josafat [...] MD ANESTHESIA ORDERABLES Final Re sult * [place] AN CENTRAL LINE DOUBLE LUMEN, PB ANESTHESIA NON-TIMED PROCEDURE PLACEHOLDER, ANESTHESIA ULTRASOUND GUIDED, [place] INSERT/PLACE FLOW DIRECT CATH (01/03/2025 7:30 AM [...] MD ANESTHESIA ORDERABLES Final Re sult * [place] AN CENTRAL LINE TRIPLE LUMEN, PB ANESTHESIA [...] NON-TIMED PROCEDURE PLACEHOLDER (01/03/2025 7:15 AM EST) Josafat Ardon MD - 01/03/2025 7:15 AM EST Josafat [...] MD ANESTHESIA ORDERABLES Final Re sult * [place] AN ELECTIVE ENDOTRACHEAL AIRWAY, PB ANESTHESIA PLACEHOLDER (01/03/2025 7:08 AM EST) Josafat Ardon MD - 01/03/2025 7:08 AM EST Josafat [...] MD ANESTHESIA ORDERABLES Final Re sult * SARS CoV-2/COVID-19 by PCR - Rapid (01/02/2025 9:46 AM EST) SARS CoV-2/COVID-1 9 RNA PCR Result Not Detected Not Detected 01/02/2025 11:10 AM EST [facility] Swab Nasopharyngeal structure / Unknown Non-blood Collection / Unknown 01/02/2025 9:46 AM EST 01/02/2025 10:06 AM EST Narrative [facility] - 01/02/2025 11:10 AM [...] clinical signs and symptoms consistent with COVID-19. us Satnam Beckford MD LAB MICROBIOLOGY - GENERAL ORDERABLES Final Result Performing Organization Address City/[facility]/ZIP Co de Phone Number [facility] [address] [place] [address] * Hepatitis B Surface Antibody, Quantitative (01/02/2025 9:40 AM EST) [facility] Hepatitis B Surface Antibody, Quantitative <8.00 NonReactiv e: <8, Grayzone: 8 - <12, Reactive: >= 12 mIU/mL 01/02/2025 11:14 AM EST [facility] Comment: Nonreactive. Individual is considered not immune to HBV infection. Blood Venous blood specimen / Unknown Venipuncture / Unknown 01/02/2025 9:40 AM EST 01/02/2025 10:02 AM EST Satnam Beckford MD LAB BLOOD ORDERABLES Final Result Performing Organization Address [facility] Co de Phone Number [facility] [address] [place] [address] * Hepatitis C Virus (HCV) Quantitative PCR (01/02/2025 9:40 AM EST) [facility] Hepatitis C Virus (HCV) Quantitative Interpretation Not Detected Not Detected. 01/05/2025 4:19 PM EST [facility] Blood Venous blood specimen / Unknown Venipuncture / Unknown 01/02/2025 9:40 AM EST 01/02/2025 10:01 AM EST Narrative [facility] - 01/05/2025 4:19 PM [...] Beckford MD LAB BLOOD ORDERABLES Final Result [facility] [address] [place] [address] * HIV 1 & 2 Antibody/Antigen Screen (01/02/2025 9:40 AM EST) HIV 1 & 2 Antibody/Antigen Screen Non Reactive Non Reactive 01/02/2025 10:42 AM EST [facility] Comment:Screening for HIV 1 & 2 antibodies, and P24 antigen is NONREACTIVE. No confirmatory testing is required. Blood Venous blood specimen / Unknown Venipuncture / Unknown 01/02/2025 9:40 AM EST 01/02/2025 10:01 AM EST Satnam Beckford MD LAB BLOOD ORDERABLES Final Result Performing Organization Address City/[facility]/ZIP Co de Phone Number [facility] [address] [place] [address] * Hepatitis C Antibody (01/02/2025 9:40 AM EST) Pathologist [facility] Hepatitis C Antibody Negative Negative 01/02/2025 10:42 AM EST [facility] Blood Venous blood specimen / Unknown Venipuncture / Unknown 01/02/2025 9:40 AM EST 01/02/2025 10:01 AM EST Satnam Beckford MD LAB BLOOD ORDERABLES Final Result [facility] [address] [place] [address] * Hepatitis B Core Total Antibody IgG,IgM (01/02/2025 9:40 AM EST) Hepatitis B Core Total Antibody IgG,IgM Negative Negative 01/02/2025 11:14 AM EST [facility] Blood Venous blood specimen / Unknown Venipuncture / Unknown 01/02/2025 9:40 AM EST 01/02/2025 10:02 AM EST Satnam Beckford MD LAB BLOOD ORDERABLES Final Result [facility] [address] [place] [address] * (ABNORMAL) Vitamin D 25 Hydroxy (01/02/2025 9:40 AM EST) Vitamin D 25 Hydroxy 16.2(L) 20.0 - 80.0 ng/mL 01/02/2025 11:15 AM EST [facility] Blood Venous blood specimen / Unknown Venipuncture / Unknown 01/02/2025 9:40 AM EST 01/02/2025 10:02 AM EST Narrative [facility] - 01/02/2025 11:15 AM EST Testing performed on [employer], standardized against NIST SRM 2972. When testing [...] BLOOD ORDERABLES Final Result Performing Organization Address [facility] Co de Phone Number [facility] [address] [place] [address] * Hepatitis B Surface Antigen (01/02/2025 9:40 AM EST) Pathologist [facility] Hepatitis B Surf Antigen Negative Negative 01/02/2025 5:37 PM EST [facility] Blood Venous blood specimen / Unknown Venipuncture / Unknown 01/02/2025 9:40 AM EST 01/02/2025 10:02 AM EST Satnam Beckford MD LAB BLOOD ORDERABLES Final Result Performing Organization Address City/[facility] Co de Phone Number [facility] [address] [place] [address] * Type and screen (01/02/2025 9:40 AM EST) Only the most recent of2 resultswithin the time period is included. ABO/Rh A Negative 01/02/2025 10:02 AM EST [facility] Antibody Screen Negative 01/02/2025 10:02 AM EST [facility] Specimen Expiration 01/05/2025 23:59 01/02/2025 10:02 AM EST [facility] Blood Venous blood specimen / Unknown Venipuncture / Unknown 01/02/2025 9:40 AM EST 01/02/2025 10:02 AM EST us Satnam Beckford MD LAB BLOOD BANK TEST ORDERAB LES Final Result [facility] B[facility] [address] [place] [address], * Shine Only ABO/Rh Type (01/02/2025 9:31 AM EST) Blood Bank Lab Only (Blood Bank Lab Only) 01/02/2025 9:31 AM EST 01/05/2025 7:46 AM EST Luis Steel MD LAB BLOOD BANK TEST ORDERAB LES Final Result Performing Organization Address City/[facility]/ZIP Co de Phone Number BLOOD BANK [address] [place] [address], * Pain Management, Quantitative Urine Drug Testing (12/30/2024 6:24 AM EST) Only the most recent of7 resultswithin the time period is included. Alpha [place] Alprazolam <20 <20 ng/mL 12/31 6:42 AM EST [facility] [place] Midazolam <20 <20 ng/mL 2024 6:42 AM EST [facility] [place] Triazolam <20 <20 ng/mL 2024 6:42 AM EST [facility] Alprazolam <10 <10 ng/mL 12/31/2024 6:42 AM EST [facility] Aminoclonazepam <20 <20 ng/mL 6:42 AM EST [facility] Amphetamine <50 <50 ng/mL 12/31/2024 6:42 AM EST [facility] Benzoylecgonine <50 <50 ng/mL 6:42 AM EST [facility] Buprenorphine <10 <10 ng/mL 12/31/2024 6:42 AM EST [facility] Buprenorphine Glucuronide <50 <50 ng/mL 12/31/2024 6:42 AM EST [facility] Butalbital <50 <50 ng/mL 12/31/2024 6:42 AM EST [facility] 9 Carboxy THC <10 <10 ng/mL 12/31/2024 6:42 AM EST [facility] 9 Carboxy THC Glucuronide <25 <25 ng/mL 12/31/2024 6:42 AM EST [facility] Clonazepam <10 <10 ng/mL 12/31/2024 6:42 AM EST [facility] Codeine <50 <50 ng/mL 12/31/2024 6:42 AM EST [facility] Codeine Glucuronide <50 <50 ng/mL 12/31 6:42 AM [facility] Cyclobenzaprine <50 <50 ng/mL 6:42 AM [facility] Desmethyl Tramadol <50 <50 ng/mL 2024 6:42 AM [facility] Diazepam <10 <10 ng/mL 12/31/2024 6:42 AM [facility] EDDP - Methadone Metabolite <50 <50 ng/mL 12/31/2024 6:42 AM [facility] Fentanyl <1 <1 ng/mL 12/31/2024 6:42 AM [facility] Hydrocodone <50 <50 ng/mL 12/31/2024 6:42 AM [facility] Hydromorphone <50 <50 ng/mL 12/31/2024 6:42 AM [facility] Hydromorphone Glucuronide <50 <50 ng/mL 12/31/2024 6:42 AM [facility] Lorazepam <20 <20 ng/mL 12/31/2024 6:42 AM [facility] Lorazepam Glucuronide <50 <50 ng/mL 12/31/2024 6:42 AM EST [facility] MDA <50 <50 ng/mL 12/31/2024 6:42 AM EST [facility] MDMA <50 <50 ng/mL 12/31/2024 6:42 AM EST [facility] Meperidine <50 <50 ng/mL 12/31/2024 6:42 AM EST [facility] Methadone <50 <50 ng/mL 12/31/2024 6:42 AM EST [facility] Methamphetamine <50 <50 ng/mL 6:42 AM EST [facility] Methylphenidate <50 <50 ng/mL 6:42 AM EST [facility] 6 Monoacetyl morphine <10 <10 ng/mL 12/31/2024 6:42 AM EST [facility] Morphine <50 <50 ng/mL 12/31/2024 6:42 AM EST [facility] Morphine Glucuronide <50 <50 ng/mL 12/13 6:42 AM EST [facility] Naloxone <50 <50 ng/mL 12/31/2024 6:42 AM EST [facility] Naloxone Glucuronide <50 <50 ng/mL 12/13 6:42 AM EST [facility] Norbuprenorphine <10 <10 ng/mL 01/01/20 6:42 AM EST [facility] Norbuprenorphine Glucuronide <50 <50 ng/mL 12/31/2024 6:42 AM EST [facility] Nordiazepam <20 <20 ng/mL 12/31/2024 6:42 AM EST [facility] Norfentanyl <2 <2 ng/mL 12/31/2024 6:42 AM EST [facility] Normeperidine <50 <50 ng/mL 12/31/2024 6:42 AM EST [facility] PCP Quant, Ur <50 <50 ng/mL 12/31/2024 6:42 AM EST [facility] Phenobarbital <50 <50 ng/mL 12/31/2024 6:42 AM EST [facility] Oxazepam <20 <20 ng/mL 12/31/2024 6:42 AM EST [facility] Oxazepam Glucuronide <50 <50 ng/mL 12/13 6:42 AM EST [facility] Oxycodone <50 <50 ng/mL 12/31/2024 6:42 AM EST [facility] Oxymorphone <50 <50 ng/mL 12/31/2024 6:42 AM EST [facility] Oxymorphone Glucuronide <50 <50 ng/mL 12/31/2024 6:42 AM EST [facility] Secobarbital <50 <50 ng/mL 12/31/2024 6:42 AM EST [facility] Tramadol <50 <50 ng/mL 12/31/2024 6:42 AM EST [facility] Temazepam <20 <20 ng/mL 12/31/2024 6:42 AM EST [facility] Temazepam Glucuronide <50 <50 ng/mL 12/31/2024 6:42 AM EST [facility] Urine Urine specimen obtained by clean catch procedure / Unknown Non-blood Collection / Unknown 12/30/2024 6:24 AM EST 12/30/2024 7:03 AM EST Narrative [facility] - 12/31/2024 6:42 AM EST This report is intended for use in clinical monitoring or management of patients. It is NOT intended for use in employment-related drug testing. For pain management, the absence of expected drug(s) and/or drug metabolite(s) may indicate non-compliance, inappropriate timing of specimen collection relative to drug administration, poor drug absorption, or limitations of testing. Interpretive questions should be directed to the laboratory. Test performed by LC-MS/MS at the [facility] Special Chemistry Laboratory. This test was developed and its performance characteristics determined by [facility]. It has not been cleared or approved by the FDA. The laboratory is regulated under CLIA as qualified to perform high-complexity testing. This test is used for clinical purposes. us Miquel Lopez MD LAB URINE ORDERABLES Final Res ult [facility] [address] [place] [address] * Phosphatidylethanol (PEth), Whole Blood, Quantitative (SO) (12/30/2024 6:24 AM EST) Only the most recent of3 resultswithin the time period is included. PEth 16:0/18:2 (PLPEth) <10 ng/mL 01/01/2025 9:08 AM EST [facility] ([facility] PEth 16:0/18:1 (POPEth) <10 ng/mL 01/01/2025 9:08 AM EST [facility] EER Peth See Note 01/01/2025 9:08 AM EST [facility] PEth Interpretation See Comment 01/01/2025 9:08 AM EST [facility] ([facility]) Blood Venous blood specimen / Unknown Venipuncture / Unknown 12/30/2024 6:24 AM EST 12/30/2024 6:57 AM EST Narrative [facility] - 01/01/2025 9:08 AM EST PEth 16:0/18:1 (POPEth) Less than 10 ng/mL............Not detected Less than 20 ng/mL............Abstinence or light alcohol consumption 20 - 200 ng/mL................Moderate alcohol consumption Greater than 200 ng/mL........Heavy alcohol consumption or chronic alcohol use (Reference: Alexi Segovia and Jaja Marion 2018 J. Forensic Sci) Reference ranges are not well established. Authorized individuals can access the [facility] Enhanced Report with an [employer] [facility] Connect account using the following link. Your local lab can assist you in obtaining the patient report if you don't have a Connect account. [email or web address] Phosphatidylethanol (PEth) is a group of phospholipids formed in the presence of ethanol, phospholipase D and phosphatidylcholine. PEth is known to be a direct alcohol biomarker. The predominant PEth homologues are PEth 16:0/18:1 (POPEth) and PEth 16:0/18:2 (PLPEth), which account for 37-46% and 26-28% of the total PEth homologues, respectively. PEth is incorporated into the phospholipid membrane of red blood cells and has a general half-life of 4-10 days and a window of detection of 2-4 weeks. However, the window of detection is longer in individuals who chronically or excessively consume alcohol. The limit of quantification is 10 ng/mL. Serial monitoring of PEth may be helpful in monitoring alcohol abstinence over time. PEth results should be interpreted in the context of the patient's clinical and behavioral history. Patients with advanced liver disease may have falsely elevated PEth concentrations (Taylor STEVENS et al 2018, Alcoholism Clinical & Experimental Research). This test was developed and its performance characteristics determined by [facility]. It has not been cleared or approved by the U.S. Food and Drug Administration. This test was performed in a CLIA-certified laboratory and is intended for clinical purposes. Performed By: [facility] [address] [place] [address] [employer] Helper: Linden Matta MD, PhD CLIA Number: [id number] Miquel Lopez MD LAB REF LAB BLOOD AND FLUID OR D Final Result [facility] [address] [place] [address] * Nicotine Cotinine Metabolite (12/30/2024 6:24 AM EST) Only the most recent of7 resultswithin the time period is included. NICOTINE <5 <5 ng/mL 12/31/2024 10:15 AM EST [facility] Cotinine <5 <5 ng/mL 12/31/2024 10:15 AM EST [facility] Blood Venous blood specimen / Unknown Venipuncture / Unknown 12/30/2024 6:24 AM EST 12/30/2024 6:59 AM EST Narrative [facility] - 12/31/2024 10:15 AM EST Testing performed by LC-MS/MS at the [facility] Special Chemistry/Toxicology Laboratory. This test was developed and its performance characteristics determined by [facility]. This assay has not been cleared by the FDA. The laboratory is regulated under CLIA as qualified to perform high-complexity testing. This test is used for clinical purposes. Miquel Lopez MD LAB BLOOD ORDERABLES Final Res ult Performing Organization Address [facility] Co de Phone Number [facility] [address] [place] [address] * Alcohol Urine (12/30/2024 6:24 AM EST) Only the most recent of7 resultswithin the time period is included. Alcohol Urine Negative Negative 12/30/2024 9:52 AM EST [facility] Urine Urine specimen obtained by clean catch procedure / Unknown Non-blood Collection / Unknown 12/30/2024 6:24 AM EST 12/30/2024 7:03 AM EST Narrative [facility] - 12/30/2024 9:52 AM EST The correlation between urine and serum ethanol concentration is highly variable. Test performed by Gas Chromatography at the [facility]. This test was developed and its performance characteristics determined by [facility]. It has not been cleared or approved by the FDA.The laboratory is regulated under CLIA as qualified to perform high-complexity testing. This test is used for clinical purposes only. [facility] Lopez MD LAB URINE ORDERABLES Final Res ult Performing Organization Address [facility] de Phone Number [facility] [address] [place] [address] * (ABNORMAL) Comprehensive Urine Drug Screening, Qualitative Assay, >= 27 Drug Classes (56:24 AM EST) Only the most recent of7 resultswithin the time period is included. Acetaminophen Negative Negative 12/31/2024 6:45 AM EST [facility] Alprazolam Negative Negative 12/31/2024 6:45 AM EST [facility] Amantadine Negative Negative 12/31/2024 6:45 AM EST [facility] Amitriptyline Negative Negative 12/31/2024 6:45 AM EST [facility] Amphetamine Negative Negative 12/31/2024 6:45 AM EST [facility] Atenolol Negative Negative 12/31/2024 6:45 AM EST [facility] Benzoylecgonine Negative Negative 6:45 AM EST [facility] Bisoprolol Negative Negative 12/31/2024 6:45 AM EST [facility] Bupropion Positive(A) Negative 12/31/2024 6:45 AM EST [facility] Butalbital Negative Negative 12/31/2024 6:45 AM EST [facility] Carbamazepine Negative Negative 12/31/2024 6:45 AM EST [facility] Carisoprodol Negative Negative 12/31/2024 6:45 AM EST [facility] Chlorpheniramine Negative Negative 01/01/20 6:45 AM EST [facility] Citalopram Negative Negative 12/31/2024 6:45 AM EST [facility] Clindamycin Negative Negative 12/31/2024 6:45 AM EST [facility] Clonidine Negative Negative 12/31/2024 6:45 AM EST [facility] Clopidogrel / Ticlopidine Negative Negative 12/31/2024 6:45 AM EST [facility] Cocaethylene Negative Negative 12/31/2024 6:45 AM EST [facility] Cocaine Negative Negative 12/31/2024 6:45 AM EST [facility] Codeine Negative Negative 12/31/2024 6:45 AM EST [facility] Cyclobenzaprine Negative Negative 6:45 AM EST [facility] Desvenlafaxine Negative Negative 12/31/2024 6:45 AM EST [facility] Dextromethorphan Negative Negative 01/01/20 6:45 AM EST [facility] Diazepam Negative Negative 12/31/2024 6:45 AM EST [facility] Diltiazem Negative Negative 12/31/2024 6:45 AM EST [facility] Diphenhydramine Negative Negative 6:45 AM EST [facility] Doxepine Negative Negative 12/31/2024 6:45 AM EST [facility] Doxylamine Negative Negative 12/31/2024 6:45 AM EST [facility] EDDP-Methadone metabolite Negative Negative 12/31/2024 6:45 AM EST [facility] Fentanyl Negative Negative 12/31/2024 6:45 AM EST [facility] Fluconazole Negative Negative 12/31/2024 6:45 AM EST [facility] Fluoxetine Negative Negative 12/31/2024 6:45 AM EST [facility] Guaifenesin Negative Negative 12/31/2024 6:45 AM EST [facility] Haloperidol Negative Negative 12/31/2024 6:45 AM EST [facility] Heroin/6-EZIO Negative Negative 12/31/2024 6:45 AM EST [facility] Hydrocodone Negative Negative 12/31/2024 6:45 AM EST [facility] Hydroxyzine / Cetirizine metabolite Negative Negative 12/31/2024 6:45 AM EST [facility] Ibuprofen Negative Negative 12/31/2024 6:45 AM EST [facility] Imipramine Negative Negative 12/31/2024 6:45 AM EST [facility] Ketamine Negative Negative 12/31/2024 6:45 AM EST [facility] Labetolol Negative Negative 12/31/2024 6:45 AM EST [facility] Lamotrigine Negative Negative 12/31/2024 6:45 AM EST [facility] Levetiracetam Negative Negative 12/31/2024 6:45 AM EST [facility] Lidocaine Negative Negative 12/31/2024 6:45 AM EST [facility] MDA Negative Negative 12/31/2024 6:45 AM EST [facility] MDMA Negative Negative 12/31/2024 6:45 AM EST [facility] Memantine Negative Negative 12/31/2024 6:45 AM EST [facility] Meperidine Negative Negative 12/31/2024 6:45 AM EST [facility] Meprobamate Negative Negative 12/31/2024 6:45 AM EST [facility] Metaxalone Negative Negative 12/31/2024 6:45 AM EST [facility] Methamphetamine Negative Negative 6:45 AM EST [facility] Methocarbamol Negative Negative 12/31/2024 6:45 AM EST [facility] Methylecgonine Negative Negative 12/31/2024 6:45 AM EST [facility] Metoclopramide Negative Negative 12/31/2024 6:45 AM EST [facility] Metoprolol Negative Negative 12/31/2024 6:45 AM EST [facility] Metronidazole Negative Negative 12/31/2024 6:45 AM EST [facility] Midazolam Negative Negative 12/31/2024 6:45 AM EST [facility] Midazolam Metabolite Negative Negative 12/31/2024 6:45 AM EST [facility] Mirtazapine Negative Negative 12/31/2024 6:45 AM EST [facility] Misc Test Result Positive(A) Negative 025 6:45 AM EST [facility] Comment:Citalopram/ Escitalo pram Detected Naproxen Negative Negative 12/31/2024 6:45 AM EST [facility] Nefazodone Negative Negative 12/31/2024 6:45 AM EST [facility] Norfentanyl Negative Negative 12/31/2024 6:45 AM EST [facility] Nortriptyline Negative Negative 12/31/2024 6:45 AM EST [facility] Ordanstron Negative Negative 12/31/2024 6:45 AM EST [facility] Oxcarbazepine Negative Negative 12/31/2024 6:45 AM EST [facility] Oxycodone Negative Negative 12/31/2024 6:45 AM EST [facility] Paroxethine Negative Negative 12/31/2024 6:45 AM EST [facility] Phenobarbital Negative Negative 12/31/2024 6:45 AM EST [facility] Phentermine Negative Negative 12/31/2024 6:45 AM EST [facility] Phenytoin Negative Negative 12/31/2024 6:45 AM EST [facility] Primidone Negative Negative 12/31/2024 6:45 AM EST [facility] Promethazine Negative Negative 12/31/2024 6:45 AM EST [facility] Propofol Negative Negative 12/31/2024 6:45 AM EST [facility] Propranolol Negative Negative 12/31/2024 6:45 AM EST [facility] Quetiapine Negative Negative 12/31/2024 6:45 AM EST [facility] Quinine Negative Negative 12/31/2024 6:45 AM EST [facility] Rantidine Negative Negative 12/31/2024 6:45 AM EST [facility] Sertraline Negative Negative 12/31/2024 6:45 AM EST [facility] Spironolactone Positive(A) Negative 6:45 AM EST [facility] Tizanidine Negative Negative 12/31/2024 6:45 AM EST [facility] Topiramate Negative Negative 12/31/2024 6:45 AM EST [facility] Tramadol Negative Negative 12/31/2024 6:45 AM EST [facility] Trazadone/ Trazadone metabolite Negative Negative 12/31/2024 6:45 AM EST [facility] Trimethoprim Negative Negative 12/31/2024 6:45 AM EST [facility] Valproic Acid Negative Negative 12/31/2024 6:45 AM EST [facility] Venlafaxine Negative Negative 12/31/2024 6:45 AM EST [facility] Verapamil Negative Negative 12/31/2024 6:45 AM EST [facility] Zolpidem Negative Negative 12/31/2024 6:45 AM EST [facility] Xylazine Negative Negative 12/31/2024 6:45 AM EST [facility] Urine Urine specimen obtained by clean catch procedure / Unknown Non-blood Collection / Unknown 12/30/2024 6:24 AM EST 12/30/2024 7:03 AM EST us Miquel Lopez MD LAB URINE ORDERABLES Final Res ult [facility] [address] [place] [address] * Light Blue Top (12/19/2024 11:50 AM EST) Extra Hold for add-ons 12/19/2024 2:02 PM EST [facility] Comment:Auto resulted. Blood Venous blood specimen / Unknown 12/19/2024 11:50 AM EST 12/19/2024 11:56 AM EST us Leroy Aponte MD LAB BLOOD ORDERABLES Final Resul t Performing Organization Address City/[facility]/ZIP Co de Phone Number [facility] [address] [place] [address] * Folate (12/19/2024 11:50 AM EST) Pathologist [facility] Folate, Serum 18.3 >4.6 ng/mL 12/19/2024 12:58 PM EST [facility] Blood Venous blood specimen / Unknown Venipuncture / Unknown 12/19/2024 11:50 AM EST 12/19/2024 12:13 PM EST us Leroy Aponte MD LAB BLOOD ORDERABLES Final Resul t Performing Organization Address [facility] Co de Phone Number [facility] [address] [place] [address] * Ferritin (12/19/2024 11:50 AM EST) Pathologist [facility] Healthcare Ferritin, Serum 42 20 - 400 ng/mL 12/19/2024 12:58 PM EST [facility] Blood Venous blood specimen / Unknown Venipuncture / Unknown 12/19/2024 11:50 AM EST 12/19/2024 12:13 PM EST us Leroy Aponte MD LAB BLOOD ORDERABLES Final Resul t Performing Organization Address [facility] Co de Phone Number [facility] [address] [place] [address] * (ABNORMAL) Vitamin B12 (12/19/2024 11:50 AM EST) Pathologist [facility] Vitamin B12, Serum 1,916(H) 210 - 1,033 pg/mL 12/19/2024 12:58 PM EST [facility] Blood Venous blood specimen / Unknown Venipuncture / Unknown 12/19/2024 11:50 AM EST 12/19/2024 12:13 PM EST us Leroy Aponte MD LAB BLOOD ORDERABLES Final Resul t Performing Organization Address City/[facility]/ZIP Co de Phone Number [facility] [address] [place] [address] * (ABNORMAL) Iron & Total Iron Binding Capacity, Plasma (Includes Transferrin) (12/19/2024 8:54 AM EST) Iron, Plasma 38(L) 50 - 170 ug/dL 12/19/2024 12:46 PM EST [facility] Transferrin, Plasma 184(L) 200 - 360 mg/dL 12/19/2024 12:46 PM EST [facility] Total Iron Binding Capacity, Plasma 230(L) 240 - 450 ug/mL 12/19/2024 12:46 PM EST [facility] Transferrin Saturation 17 14 - 50 % 12/19/2024 12:46 PM EST [facility] Blood Venous blood specimen / Unknown Venipuncture / Unknown 12/19/2024 8:54 AM EST 12/19/2024 9:32 AM EST us Leroy Aponte MD LAB BLOOD ORDERABLES Final Resul t Performing Organization Address City/State/[facility] Co de Phone Number [facility] [address] [place] [address] * Colonoscopy (12/18/2024 11:24 AM EST) Anatomical [...] Staff Role Luis Herrera MD Fellow Félix Muñiz, Fatou Hidalgo CRNA Endo Drawer In Ritu Espinoza RN Endo Nurse Liu East MD Anesthesiologist Prieto Dillon MD Proceduralist Mirella Deleon Endo Drawer In Ceasar Lofton RN Endo Nurse Preprocedure A [...] of bowel preparation was evaluated using the [place] Bowel Preparation Scale with scores of: right [...] GI PROCEDURE ORDERABLES Final Re sult * EGD PRIETO DILLON; 12/18/2024 (12/18/2024 11:24 AM EST) Anatomical [...] Félix Muñiz CRNA CRNA [place], Jolynn Endo Drawer In Ritu Espinoza RN Endo Nurse Liu East MD Anesthesiologist Prieto Dillon MD Proceduralist Mirella Deleon Endo Drawer In Ceasar Lofton RN Endo Nurse Preprocedure A [...] PROCEDURE ORDERABLES Final Re sult * (ABNORMAL) Hepatic function panel (12/18/2024 4:47 AM EST) Direct Bilirubin, Plasma 8.1(H) <=0.3 mg/dL 12/18/2024 5:27 AM EST [facility] Alkaline Phosphatase, Plasma 111 40 - 115 U/L 12/18/2024 5:27 AM EST [facility] Total Bilirubin, Plasma 15.9(H) 0.2 - 1.1 mg/dL 12/18/2024 5:27 AM EST [facility] Albumin, Plasma 2.8(L) 3.5 - 5.2 g/dL 12/18/2024 5:27 AM EST [facility] Total Protein 5.9(L) 6.3 - 7.9 g/dL 12/18/2024 5:27 AM EST [facility] Comment: Icteric specimen. Result may be affected, interpret result in the context of the patient's condition and other laboratory results. ALT, Plasma 35 10 - 50 U/L 12/18/2024 5:27 AM EST [facility] AST, Plasma 76(H) 10 - 50 U/L 12/18/2024 5:27 AM EST [facility] Blood Venous blood specimen / Unknown Venipuncture / Unknown 12/18/2024 4:47 AM EST 12/18/2024 4:56 AM EST Leroy Aponte MD LAB BLOOD ORDERABLES Final Resul t Performing Organization Address City/State/[facility] Co de Phone Number [facility] [address] [place] [address] * (ABNORMAL) Basic Metabolic Panel, Plasma (12/18/2024 4:47 AM EST) Glucose, Plasma 85 74 - 99 mg/dL 12/18/2024 5:27 AM EST [facility] BUN, Plasma 17 7 - 21 mg/dL 12/18/2024 5:27 AM EST [facility] Creatinine, Plasma 0.81 0.70 - 1.20 mg/dL 12/18/2024 5:27 AM EST [facility] Comment: Icteric specimen. Result may be falsely decreased. Interpret result in the context of the patient's condition and other laboratory results. BUN/Creatinine Ratio 21 12/18/2024 5:27 AM EST [facility] Sodium, Plasma 132(L) 136 - 145 mmol/L 12/18/2024 5:27 AM EST [facility] Potassium, Plasma 4.6 3.6 - 4.9 mmol/L 12/18/2024 5:27 AM EST [facility] Chloride, Plasma 104 97 - 107 mmol/L 12/18/2024 5:27 AM EST [facility] CO2, Plasma 20(L) 22 - 29 mmol/L 12/18/2024 5:27 AM EST [facility] Anion Gap 8 6 - 16 mmol/L 12/18/2024 5:27 AM EST [facility] Total Calcium, Plasma 8.4(L) 8.9 - 10.2 mg/dL 12/18/2024 5:27 AM EST [facility] eGFRcr 110.8 mL/min/1.7 3m*2 12/18/2024 5:27 AM EST [facility] Comment:Reported eGFRcr in m L/min/1.73m2 is based the CKD-EPI 2020 equation that does not use a race coefficient. Blood Venous blood specimen / Unknown Venipuncture / Unknown 12/18/2024 4:47 AM EST 12/18/2024 4:56 AM EST us Leroy Aponte MD LAB BLOOD ORDERABLES Final Resul t Performing Organization Address City/State/[facility] Co de Phone Number [facility] [address] [place] [address] * ECG Adult (12/17/2024 8:49 PM EST) EKG DIAGNOSIS CLASS Abnormal MUSE ECG Ventricular Rate 66 BPM MUSE ECG Atrial Rate 66 BPM MUSE ECG [place] Interval 178 ms MUSE ECG QRSD Interval 88 ms MUSE ECG QT Interval 474 ms MUSE ECG QTC Interval 496 ms MUSE ECG P [place] 45 degrees MUSE ECG R [place] 29 degrees MUSE ECG T Wave [place] 19 degrees MUSE ECG Diagnosis Normal sinus rhythm MUSE ECG Diagnosis QTcB >= 480 msec MUSE ECG Diagnosis Abnormal ECG MUSE ECG Diagnosis MUSE ECG Diagnosis Confirmed by Jeff Worthington ([id number]) on 12/18/2024 10:06:13 AM MUSE ECG 12/17/2024 8:49 PM EST 12/18/2024 10:06 AM EST us Leroy Aponte MD ECG ORDERABLES Final Result MUSE ECG * US Guided Abdominal Paracentesis (11/04/2024 3:13 PM EDT) Anatomical Region Laterality Modality Abdomen Ultrasound Impressions 11/05/2024 8:26 PM EDT Technically successful US-guided paracentesis. A total of 2.7 liters of clear yellow fluid was removed. A sample of the fluid was sent for laboratory analysis. CRITICAL RESULT: No. COMMUNICATION: Per this written report. Preliminary report signed by LIVE Maddox on 11/05/2024 11:27 AM By electronically signing this report, I, the attending physician, attest that I was not present for the procedure(s) but agree with the final edited report. Drafted by LIVE Maddox on 11/05/2024 11:25 AM Final report signed by Cole Draper MD on 11/05/2024 8:26 PM Narrative 11/05/2024 8:26 PM EDT CLINICAL INDICATION: This is a 44yo male with a PMH of decompensated alcohol cirrhosis with ascites, who presents for paracentesis. TECHNIQUE: Radiological Technician: TITA Robles Secondary Electro Mechanic: None. Rad Dose: NA Medications: Continuous physiologic monitoring provided by a qualified healthcare professional. Administered: 1% Lidocaine SQ. Antibiotics: NA Time out: 8623 Procedure: After discussion of risks and benefits, informed written consent was obtained. Appropriate time out was done to confirm patient identity and planned procedure. The patient was placed supine and initial limited ultrasound scan performed to begin an Ultrasound Guided Paracentesis. Strict hand hygiene protocol was observed with the operators doing a surgical hand scrub. All personnel in the room were attired in surgical hat and mask. The operators were in surgical hat, mask, sterile gloves and gowns. The site was prepped with 2% chlorhexidine for cutaneous antisepsis, followed by sterile barrier draping. Limited quadrant ultrasound was performed, which showed an anechoic fluid collection in the left lower quadrant. 1% lidocaine used for local analgesia. Under real time US guidance, a 5 Fr centesis catheter was advanced into the ascites. Ultrasound images were sent to permanent storage in PACS. A total of 2.7 liters of clear yellow fluid was removed. The centesis catheter was removed and occlusive dressing applied. The patient tolerated the procedure well. The patient left the IR suite in stable condition. COMPARISON: None. FINDINGS: small volume ascites. COMPLICATION: No. Procedure Note Cole Draper MD - 11/05/2024 CLINICAL INDICATION: This is a 44yo male with a PMH of decompensated alcohol cirrhosis withascites, who presents for paracentesis. TECHNIQUE: Radiological Technician: TITA Robles Secondary Electro Mechanic: None. Rad Dose: NA Medications: Continuous physiologic monitoring provided by a qualifiedhealthcare professional. Administered: 1% Lidocaine SQ. Antibiotics: NA Time out: 3 Procedure: After discussion of risks and benefits, informed written consent wasobtained. Appropriate time out was done to confirm patient identity andplanned procedure. The patient was placed supine and initial limitedultrasound scan performed to begin an Ultrasound Guided Paracentesis. Strict hand hygiene protocol was observed with the operators doing asurgical hand scrub. All personnel in the room were attired in surgicalhat and mask. The operators were in surgical hat, mask, sterile glovesand gowns. The site was prepped with 2% chlorhexidine for cutaneousantisepsis, followed by sterile barrier draping. Limited quadrant ultrasound was performed, which showed an anechoic fluidcollection in the left lower quadrant. 1% lidocaine used for localanalgesia. Under real time US guidance, a 5 Fr centesis catheter wasadvanced into the ascites. Ultrasound images were sent to permanentstorage in PACS. A total of 2.7 liters of clear yellow fluid was removed.The centesis catheter was removed and occlusive dressing applied. The patient tolerated the procedure well. The patient left the IR suitein stable condition. COMPARISON: None. FINDINGS: small volume ascites. COMPLICATION: No. IMPRESSION: Technically successful US-guided paracentesis. A total of 2.7 liters of clear yellow fluid was removed. A sample of the fluid was sent for laboratory analysis. CRITICAL RESULT: No. COMMUNICATION: Per this written report. Preliminary report signed by LIVE Maddox on 11/05/2024 11:27AM By electronically signing this report, I, the attending physician, attestthat I was not present for the procedure(s) but agree with the finaledited report. Drafted by LIVE Maddox on 11/05/2024 11:25 AM Final report signed by Cole Draper MD on 11/05/2024 8:26 PM us Lina Walsh DAY CARE ATTENDANT IMG US PROCEDURES Final Resu lt * Protein - Ascites (11/04/2024 2:47 PM EDT) Total Protein, Fluid 1.5 g/dL 11/04/2024 6:17 PM EDT [facility] Ascites Peritoneal cavity structure / Unknown 11/04/2024 2:47 PM EDT 11/04/2024 3:11 PM EDT Narrative [facility] - 11/04/2024 6:17 PM EDT This test was developed and its performance characteristics determined by [facility]. The U.S. Food and Drug Administration has not approved or cleared this test. However, FDA clearance or approval is not currently required for clinical use. The results are not intended to be used as the sole means for clinical diagnosis or patient management decisions. us Sonia Robles APRN LAB BODY FLUIDS AND STO OLS ORDERABLES Final Result [facility] [address] [place] [address] * Body Fluid Cell Count With Diff - Ascites (11/04/2024 2:46 PM EDT) Color, Body fluid Yellow LAB HEMATOLOGY METHOD 11/04/2024 7:53 PM EDT [facility] Appearance, Body fluid Clear LAB HEMATOLOGY METHOD 11/04/2024 7:53 PM EDT [facility] Volume, Body fluid 35.0 cc LAB HEMATOLOGY METHOD 11/04/2024 7:53 PM EDT [facility] Fluid Container Specimen received in miscellaneous container LAB HEMATOLOGY METHOD 11/04/2024 7:53 PM EDT [facility] Red Blood Cell Count, Body fluid 984 uL LAB HEMATOLOGY METHOD 11/04/2024 7:53 PM EDT [facility] Comment:Test performed by ly mao method. Total Nucleated Cell Count, Body fluid 316 uL LAB HEMATOLOGY METHOD 11/04/2024 7:53 PM EDT [facility] Neutrophils %, Body fluid 2 % LAB HEMATOLOGY METHOD 11/04/2024 7:53 PM EDT [facility] Lymphocytes %, Body fluid 59 % LAB HEMATOLOGY METHOD 11/04/2024 7:53 PM EDT [facility] Monocytes/Macr ophages %, Body fluid 37 % LAB HEMATOLOGY METHOD 11/04/2024 7:53 PM EDT [facility] Eosinophils %, Body fluid 0 % LAB HEMATOLOGY METHOD 11/04/2024 7:53 PM EDT [facility] Lining/Mesothe lial Cells %, Body fluid 2 % LAB HEMATOLOGY METHOD 11/04/2024 7:53 PM EDT [facility] Neutrophils Absolute (PMN), Body fluid 6 uL LAB HEMATOLOGY METHOD 11/04/2024 7:53 PM EDT [facility] Lymphocytes Absolute, Body fluid 186 uL LAB HEMATOLOGY METHOD 11/04/2024 7:53 PM EDT [facility] Monocytes/Macr ophages Absolute, Body fluid 117 uL LAB HEMATOLOGY METHOD 11/04/2024 7:53 PM EDT [facility] Eosinophils Absolute, Body fluid 0 uL LAB HEMATOLOGY METHOD 11/04/2024 7:53 PM EDT [facility] Basophils Absolute, Body fluid 0 uL LAB HEMATOLOGY METHOD 11/04/2024 7:53 PM EDT [facility] Lining/Mesothe lial Cells Absolute, Body fluid 6 uL LAB HEMATOLOGY METHOD 11/04/2024 7:53 PM EDT [facility] Basophils %, Body fluid 0 % LAB HEMATOLOGY METHOD 11/04/2024 7:53 PM EDT [facility] Body Fluid Peritoneal fluid / Unknown Non-blood Collection / Unknown 11/04/2024 2:46 PM EDT 11/04/2024 3:11 PM EDT Sonia Robles APRN LAB BODY FLUIDS AND STOOLS ORDERABLES NO SPECIMEN TYPE/SOURCE Final Result Performing Organization Address [facility]/ZIP Co de Phone Number [facility] [address] [place] [address] * Body fluid, cytospin, pathologist interpretation (11/04/2024 2:46 PM EDT) Specimen Type Body Fluid LAB HEMATOLOGY METHOD 11/05/2024 11:37 AM EDT [facility] Specimen Source, Body Fluid Peritoneal Fluid LAB HEMATOLOGY METHOD 11/05/2024 11:37 AM EDT [facility] Clinical Diagnosis, Body Fluid Cirrhosis, ascites LAB HEMATOLOGY METHOD 11/05/2024 11:37 AM EDT [facility] Interpretation , Body Fluid No evidence of malignancy. Predominantly chronic inflammatory cells in a background of light blood A resident was involved in the service. I attest I examined the relevant preparations for the specimens and confirmed the diagnosis or interpretation. 11/05/2024 11:37 AM EDT [facility] Pathologist Signature, Body Fluid 11/05/2024 11:37 AM EDT [facility] Comment:Reviewed by: Joanne Baum MD LAB CP ASR DISCLAIMER Yes 11/05/2024 11:37 AM EDT [facility] Body Fluid Peritoneal fluid / Unknown Non-blood Collection / Unknown 11/04/2024 2:46 PM EDT 11/04/2024 3:11 PM EDT Sonia Robles APRN LAB BODY FLUIDS AND STO OLS ORDERABLES Final Result Performing Organization Address City/[facility]/ZIP Co de Phone Number [facility] [address] [place] [address] * Ethyl Glucuronide And Ethyl Sulfate Urine Quant (11/04/2024 12:53 PM EDT) Ethyl Glucoronide,UR N,Quant <100 ng/mL 11/19/2024 7:10 AM EDT [facility] ETHYL SULFATE, URN, QUANT <100 ng/mL 11/19/2024 7:10 AM EDT [facility] Urine Voided urine specimen / Unknown Non-blood Collection / Unknown 11/04/2024 12:53 PM EDT 11/04/2024 6:35 PM EDT Narrative [facility]) - 11/19/2024 7:10 AM EDT INTERPRETIVE INFORMATION: Ethyl Glucuronide and Ethyl Sulfate, Urine Quantitative Ethyl glucuronide (EtG) and Ethyl Sulfate (EtS) are direct metabolites of ethanol. EtG and EtS can be detected up to 80 hours in urine after ethanol ingestion and the presence of both metabolites can be used as markers for recent alcohol use. The presence of EtG, alone in urine, is not a unique marker of ethanol ingestion. False positive EtG results can occur from microbial formation or from fermentation and false negative EtG results can occur from bacterial degradation. The analytical measurement range is 100-10,000 ng/mL. This test was developed and its performance characteristics determined by [facility]. It has not been cleared or approved by the US Food and Drug Administration. This test was performed in a CLIA certified laboratory and is intended for clinical purposes. Performed By: [facility] [address] [place] [address] Hoop Punch And Coiler Operator Helper: Linden Matta MD, PhD CLIA Number: [id number] Abdon Zayas MD LAB URINE ORDERABLES Final Resul t [facility]) [address] [place] [address] from Last 3 Months Insurance [facility] [employer] MEDICAID [facility] [employer] MEDICAID Advance Directives * Full Code (Latest Code Status on File) Date Activated Date Inactivated Comments 01/03/2025 2:33 PM 01/16/2025 7:37 PM Question Answer Comments I have reviewed the capacity from the link above and, if needed, have updated to appropriate status: Yes * Full Code Date Activated Date Inactivated Comments 01/02/2025 5:37 PM 01/03/2025 2:33 PM Question Answer Comments I have reviewed the capacity from the link above and, if needed, have updated to appropriate status: Yes * Full Code Date Activated Date Inactivated Comments 12/17/2024 2:27 PM 12/20/2024 4:49 PM Question Answer Comments I have reviewed the capacity from the link above and, if needed, have updated to appropriate status: Yes * Full Code Date Activated Date Inactivated Comments 10/18/2024 11:49 PM 10/24/2024 3:22 PM Question Answer Comments I have reviewed the capacity from the link above and, if needed, have updated to appropriate status: Yes Care Teams Communication Lecturer Relationship Specialty Start Date End Date Param Eng DO [address] [place] [address] [place] [address] PCP - General 12/22/24
--- OUTSIDE RECORDS SUMMARY | 2025-01-23 07:08 | XMS_ITS | Encounter Summary ---
Author Organization [facility] Address [address] [place] [address] Care Team Providers Care Library Supervisor Name Role Phone Velasquez Param Augie HORTON Primary Care Provider [phone] Encounter Details Date Type Department Care Team (Latest Contact Info) Description 01/13/2025 Travel Social History Tobacco Use Types Packs/Day [...] or relatives? Twice a week 01/02/2025 Attends Mosque Services Not on file 01/02 Do you belong to any clubs o r organizations such as muslim groups, unions, fraternal or athletic groups, or [...] housing, medical care, and heating? Hard 01/02/2025 [facility] - [facility] [...] any time in the past 12 m [facility], were you homeless or living in a alf (including now)? 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 Wish to be (Past 1 Month) No 01/13/2025 8:00 PM Mirtha Bright, RN 2. Non-Specific Active Suici joceline Thoughts (Past 1 Month) No 01/13/2025 8:00 PM EST Hedy Miranda, RN 6. Suicidal Behavior (Lifetime) No 8:00 PM EST Mirtha Miranda, RN documented as of this encounter Mental Status * Question Answer Entry Date Author Precautions Fall risk;Environmen adrianna surveillance 01/13/2025 8:00 PM EST Mirtha Miranda, RN documented in this encounter Plan of Treatment Upcoming Encounters Date Type Department Care Team (Late st Contact Info) Description 01/23/2025 8:40 AM EST Office Visit [facility] [address] [place] [address] Fcyijomtzu-Pysgb-Ybr rosemary-Paul 03/06/2025 11:10 AM EST Appointment [facility] [address] [place] [address] Natalya Valentine MD [address] [place] [address] documented as of this encounter [...] documented as of this encounter Care Teams Library Supervisor Relationship Specialty Start Date End Date Param Eng DO [address] [place] [address] PCP - General 12/22/24 documented as of this encounter
--- OUTSIDE RECORDS SUMMARY | 2025-01-23 07:08 | XMS_ITS | Encounter Summary ---
Author Organization Healthcare Address [address] [id number] Care Team Providers Care Chief Technology Officer Name Role Phone Param Eng DO Primary Care Provider [phone] Encounter Details Date Type Department Care Team (Late st Contact Info) Description 01/15/[address] [facility] [address] [facility] [address] [place] [address] [facility] - CLINICAL NUTRITION [address] [place] [address] Social History Tobacco Use Types Packs/Day Years [...] or relatives? Twice a week 01/02/2025 Attends Sabianist Services Not on file 01/02 Do you [...] housing, medical care, and heating? Hard 01/02/2025 [facility] - Occupational [...] any time in the past 12 m [facility], were you homeless or living in a [place] (including now)? 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 [address] Natalya Valentine MD [address] [place] [address] documented as of this encounter [...] documented as of this encounter Care Teams Chief Technology Officer Relationship Specialty Start Date End Date Param Eng DO [address] [place] [address] PCP - General 12/22/24 documented as of this encounter
[2025-01-23 07:43] LABS: Hematocrit 32.6 % (42.0-52.0); Hemoglobin 10.7 g/dL (14.1-18.0); Immature Granulocytes % 0.5 %; Mean Corpuscular HGB Conc 32.8 g/dL (31.8-35.4); Mean Corpuscular Hemoglobin 33.4 pg (27.0-31.2); Mean Corpuscular Volume 101.9 fl (80-94); Nucleated Red Blood Cells % 0 %; Platelet Count 266 K/mm3 (142-424); Red Blood Count 3.20 M/mm3 (4.60-6.20); Red Cell Distribution Width-SD 76.4 fL; White Blood Count 8.6 K/mm3 (4.8-10.8)
[2025-01-23 08:01] LABS: Chloride 107 mmol/L (98-107)
[2025-01-23 08:02] LABS: Albumin Level 3.3 g/dl (3.5-5.0); Potassium 4.1 mmoL/L (3.5-5.1); Sodium 145 mmol/L (136-145)
[2025-01-23 08:05] LABS: Alanine Aminotransferase 45 U/L (12-78); Albumin/Globulin Ratio 1.4 (1.1-1.8); Alkaline Phosphatase 76 U/L (38-126); Anion Gap 17.1 mEq/L (5-15); Aspartate Amino Transferase 20 U/L (17-59); Bilirubin,Total 2.5 mg/dl (0.2-1.3); Blood Urea Nitrogen 26 mg/dl (9-20); Calcium 8.4 mg/dl (8.4-10.2); Carbon Dioxide 25 mmol/L (22.0-30.0); Creatinine,Serum 0.90 mg/dl (0.66-1.25); Estimated Glomerular Filt Rate 91 ml/min (>60); GFR (African American) 110 ML/MIN (>60); Gamma Glutamyl Transpeptidase 153 U/L (15-73); Globulin 2.4 g/dL (1.3-3.2); Glucose 85 mg/dl (74-100); Magnesium 1.7 mg/dl (1.6-2.3); Total Protein,Serum 5.7 g/dl (6.3-8.2)
[2025-01-27 05:33] LABS: Tacrolimus (FK506), Blood 5.6 ng/mL (5.0-20.0)
== END 2025-01-23 23:59 | disposition home or self-care (01) ==
LOC: LAB 06:55
PROVIDERS: PCP Internal Medicine; Visit Provider Nurse Practitioner Acute Care
DX: Z94.4 Liver transplant status (principal); Z79.899 Other long term (current) drug therapy
CPT/HCPCS: 36415; 80053; 80197; 82977; 83735; 85025

== ENCOUNTER 2025-02-09 07:24 | Outpatient (CLI) | payer OTHER, SELFPAY ==
--- OUTSIDE RECORDS SUMMARY | 2024-12-17 09:00 | XMS_ITS | Encounter Summary ---
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 Name Role Phone Pcp, No Primary Care Provider Unavailabl e Reason for Visit * Auth/Cert (Routine) Specialty Diagnoses / Procedures Referred By Contac t Referred To Contact Diagnoses Anemia Symptomatic anemia Anemia, unspecified type Alcoholic cirrhosis, unspecified whether ascites present Hemoglobin 6.3 Leroy Aponte MD [address] [place] [address] Phone: tel: fax: [facility] Inpatient [address] [place] [address] Phone: tel: Referral ID Status Reason Start Date Expiration Date Visits Re quested Visits Authorized [id number] 1 1 Encounter Details Date Type Department Care Team (Latest Contact Info) Description 12/17/2024 9:00 AM EST Office Visit [facility] [address] [place] [address] Prieto Dillon MD [address] [place] [address] Decompensation of cirrhosis of liver [...] No 12/18/2024 Housing Stability Vital Sign Answer Virgilio e Recorded In the last 12 months, was t here a time when you were not able to pay the mortgage or rent on time? No 12/18/2024 Number of Times Moved in the Last Year Not on fi le 12/18/2024 At any time in the past 12 m [facility], were you homeless or living in a senior living (including now)? No 12/18/2024 [facility] Utilities Answer Date Recorded In the past 12 months has th e electric, gas, oil, or water [employer] threatened to shut off services in your [...] documented in this encounter Functional Status * BP Answer Date of Assessment Author 131/67 12/17/2024 7:05 AM GISELE Vincent Ma deline * Temp Answer Date of Assessment Author 98.2 12/17/2024 7:05 AM GISELE Vincent Ma deline * Temp src Answer Date of Assessment Author Oral 12/17/2024 7:05 AM GISELE Vincent Ma deline * Pulse Answer Date of Assessment Author 79 12/17/2024 7:05 AM GISELE Vincent Ma deline * Resp Answer Date of Assessment Author 22 12/17/2024 7:05 AM GISELE Vincent Ma deline * SpO2 Answer Date of Assessment Author 99 12/17/2024 7:05 AM GISELE Vincent Ma deline * Height Answer Date of Assessment Author 74 12/17/2024 7:05 AM GISELE Vincent Ma deline * Weight Answer Date of Assessment Author 3865.99 12/17/2024 7:05 AM GISELE Vincent Ma deline * BMI (Calculated) Answer Date of Assessment Author 31.1 12/17/2024 7:05 AM GISELE Vincent Ma deline * Percent Excess Weight Loss Answer Date of Assessment Author 0 12/17/2024 7:05 AM GISELE Vincent Ma deline * Total Weight Change Percent Answer Date of Assessment Author 22212/17/2024 7:05 AM Pacheco Fajardo * Weight Change Since Preop Answer Date of Assessment Author 109.58 12/17/2024 7:05 AM Pacheco Fajardo * Initial Excess Weight Answer Date of Assessment Author -86.18 12/17/2024 7:05 AM Pacheco Fajardo * IBW in lbs (Bariatric) Answer Date of Assessment Author 190 12/17/2024 7:05 AM Pacheco Fajardo * Weight Change Since Last Visit Answer Date of Assessment Author 109.58 12/17/2024 7:05 AM Pacheco Fajardo * IBW in kg (Bariatric) Answer Date of Assessment Author 86.18 12/17/2024 7:05 AM Pacheco Fajardo * Percent of IBW Answer Date of Assessment Author 4,485.95 12/17/2024 7:05 AM Pacheco Fajardo * EBW (kg) Answer Date of Assessment Author 3,863.55 12/17/2024 7:05 AM Pacheco Fajardo * EBW (lbs) Answer Date of Assessment Author 3,854.12 12/17/2024 7:05 AM Pacheco Fajardo * Weight Change 24 hrs Answer Date of Assessment Author 10.8 12/17/2024 7:05 AM Pacheco Fajardo * Depression Screening Question Answer Date of Assessment Author Will the patient answer the depression risk questions? No 12/17/2024 7:07 AM Stella Fajardo * BSA (Calculated - sq m) Answer Date of Assessment Author 2.39 12/17/2024 7:05 AM Pacheco Fajardo * BMI (Calculated) Answer Date of Assessment Author 31.01 12/17/2024 7:05 AM Pacheco Fajardo * BP Location Answer Date of Assessment Author Right arm 12/17/2024 7:05 AM Pacheco Fajardo * IBW/kg (Calculated) Male Answer Date of Assessment Author 82.2 12/17/2024 7:05 AM Pacheco Fajardo * IBW/kg (Calculated) Female Answer Date of Assessment Author 77.7 12/17/2024 7:05 AM Pacheco Fajardo * Restart Vitals Timer Answer Date of Assessment Author Yes 12/17/2024 7:05 AM Pacheco Fajardo * IBW/kg (Calculated) Answer Date of Assessment Author 82.2 12/17/2024 7:05 AM Pacheco Fajardo * Current supplemental O2 requirements Question Answer Date of Assessment Author Oxygen Therapy None (Room air) 12/17/2024 7:06 AM Stella Fajardo * Hospitalization Question Answer Date of Assessment Author Hospitalized since last clinic visit? No 06/2024 7:06 AM Stella Fajardo * Weight in (lb) to have BMI = 25 Answer Date of Assessment Author 194.3 12/17/2024 7:05 AM Pacheco Fajardo * BMI (Calculated) Answer Date of Assessment Author 31.1 12/17/2024 7:05 AM Pacheco Fajardo * Percent Excess Weight Loss Answer Date of Assessment Author 0 12/17/2024 7:05 AM Pacheco Fajardo * Weight Change Since Preop Answer Date of Assessment Author 109.6 12/17/2024 7:05 AM GISELE Vincent Ma deline * Initial Excess Weight Answer Date of Assessment Author -86.18 12/17/2024 7:05 AM GISELE Vincent Ma deline * IBW in kg (Bariatric) Answer Date of Assessment Author 86.18 12/17/2024 7:05 AM GISELE Vincent Ma deline * IBW in lb (Bariatric) Answer Date of Assessment Author 190 12/17/2024 7:05 AM GISELE Vincent Ma deline * Weight Change Since Last Visit Answer Date of Assessment Author 10.8 12/17/2024 7:05 AM GISELE Vincent Ma deline * Percent of IBW Answer Date of Assessment Author 127.17 12/17/2024 7:05 AM GISELE Vincent Ma deline * EBW (kg) Answer Date of Assessment Author 23.4 12/17/2024 7:05 AM GISELE Vincent Ma deline * EBW (lb) Answer Date of Assessment Author 51.62 12/17/2024 7:05 AM GISELE Vincent Ma deline * Difference in Weight Since Last Visit Answer Date of Assessment Author 10.8 12/17/2024 7:05 AM GISELE Vincent Ma deline * Temp (in Celsius) for [place] IV Answer Date of Assessment Author 36.8 12/17/2024 7:05 AM Pacheco Fajardo * IBW/kg (Calculated) Answer Date of Assessment Author 82.2 12/17/2024 7:05 AM Pacheco Fajardo * Adult Low Range Vt 6mL/kg Answer Date of Assessment Author 493.2 12/17/2024 7:05 AM Pacheco Fajardo * Adult Moderate Range Vt 8mL/kg Answer Date of Assessment Author 657.6 12/17/2024 7:05 AM Pacheco Fajardo * Adult High Range Vt 10mL/kg Answer Date of Assessment Author 822 12/17/2024 7:05 AM Pacheco Fajardo * Vitals Timer Question Answer Date of Assessment Author Restart Vitals Timer Yes 12/17/2024 7:05 AM Stella Austin * Patient Position Answer Date of Assessment Author Sitting 12/17/2024 7:05 AM Pacheco Fajardo * BP Answer Date of Assessment Author 131/67 12/17/2024 7:05 AM Pacheco Fajardo * Temp Answer Date of Assessment Author 98.2 12/17/2024 7:05 AM Pacheco Fajardo * Temp src Answer Date of Assessment Author Oral 12/17/2024 7:05 AM Pacheco Fajardo * Pulse Answer Date of Assessment Author 79 12/17/2024 7:05 AM Pacheco Fajardo * Resp Answer Date of Assessment Author 22 12/17/2024 7:05 AM GISELE Vincent Ma deline * SpO2 Answer Date of Assessment Author 99 12/17/2024 7:05 AM Pacheco Fajardo * Height Answer Date of Assessment Author 74 12/17/2024 7:05 AM GISELE Vincent Ma deline * Weight Answer Date of Assessment Author 3865.99 12/17/2024 7:05 AM Deidra Fajardoline * BSA (Calculated - sq m) Answer Date of Assessment Author 2.39 12/17/2024 7:05 AM aPcheco Fajardo * BMI (Calculated) Answer Date of Assessment Author 31.01 12/17/2024 7:05 AM GISELE Vincent Ma deline * BP Location Answer Date of Assessment Author Right arm 12/17/2024 7:05 AM GISELE Vincent Ma deline * Restart Vitals Timer Answer Date of Assessment Author Yes 12/17/2024 7:05 AM GISELE Vincent Ma deline * Weight in (lb) to have BMI = 25 Answer Date of Assessment Author 194.3 12/17/2024 7:05 AM GISELE Vincent Ma deline * Patient Position Answer Date of Assessment Author Sitting 12/17/2024 7:05 AM GISELE Vincent Ma deline documented as of this encounter Mental Status * BP Answer Entry Date Author 131/67 12/17/2024 7:05 AM GISELE Vincent Ma deline * Temp Answer Entry Date Author 98.2 12/17/2024 7:05 AM GISELE Vincent Ma deline * Temp src Answer Entry Date Author Oral 12/17/2024 7:05 AM GISELE Vincent Ma deline * Pulse Answer Entry Date Author 79 12/17/2024 7:05 AM GISELE Vincent Ma deline * Resp Answer Entry Date Author 22 12/17/2024 7:05 AM GISELE Vincent Ma deline * SpO2 Answer Entry Date Author 99 12/17/2024 7:05 AM GISELE Vincent Ma deline * Height Answer Entry Date Author 74 12/17/2024 7:05 AM GISELE Vincent Ma deline * Weight Answer Entry Date Author 3865.99 12/17/2024 7:05 AM GISELE Vincent Ma deline * BMI (Calculated) Answer Entry Date Author 31.1 12/17/2024 7:05 AM GISELE Vincent Ma deline * Percent Excess Weight Loss Answer Entry Date Author 0 12/17/2024 7:05 AM GISELE Vincent Ma deline * Total Weight Change Percent Answer Entry Date Author 2222 12/17/2024 7:05 AM GISELE Vincent Ma deline * Weight Change Since Preop Answer Entry Date Author 109.58 12/17/2024 7:05 AM GISELE Vincent Ma deline * Initial Excess Weight Answer Entry Date Author -86.18 12/17/2024 7:05 AM GISELE Vincent Ma deline * IBW in lbs (Bariatric) Answer Entry Date Author 190 12/17/2024 7:05 AM GISELE Vincent Ma deline * Weight Change Since Last Visit Answer Entry Date Author 109.58 12/17/2024 7:05 AM GISELE Vincent Ma deline * IBW in kg (Bariatric) Answer Entry Date Author 86.18 12/17/2024 7:05 AM Pacheco Fajardo * Percent of IBW Answer Entry Date Author 4,485.95 12/17/2024 7:05 AM GISLEE Vincent Ma deline * EBW (kg) Answer Entry Date Author 3,863.55 12/17/2024 7:05 AM Pacheco Fajardo * EBW (lbs) Answer Entry Date Author 3,854.12 12/17/2024 7:05 AM Pacheco Fajardo * Weight Change 24 hrs Answer Entry Date Author 10.8 12/17/2024 7:05 AM Pacheco Fajardo * Depression Screening Question Answer Entry Date Author Will the patient answer the depression risk questions? No 12/17/2024 7:07 AM Stella Fajardo * BSA (Calculated - sq m) Answer Entry Date Author 2.39 12/17/2024 7:05 AM Pacheco Fajardo * BMI (Calculated) Answer Entry Date Author 31.01 12/17/2024 7:05 AM GISELE Vincent Ma deline * BP Location Answer Entry Date Author Right arm 12/17/2024 7:05 AM Pacheco Fajardo * IBW/kg (Calculated) Male Answer Entry Date Author 82.2 12/17/2024 7:05 AM Pacheco Fajardo * IBW/kg (Calculated) Female Answer Entry Date Author 77.7 12/17/2024 7:05 AM Pacheco Fajardo * Restart Vitals Timer Answer Entry Date Author Yes 12/17/2024 7:05 AM Pacheco Fajardo * IBW/kg (Calculated) Answer Entry Date Author 82.2 12/17/2024 7:05 AM GISELE Vincent Ma deline * Weight in (lb) to have BMI = 25 Answer Entry Date Author 194.3 12/17/2024 7:05 AM GISELE Vincent Ma deline * BMI (Calculated) Answer Entry Date Author 31.1 12/17/2024 7:05 AM Pacheco Fajardo * Percent Excess Weight Loss Answer Entry Date Author 0 12/17/2024 7:05 AM GISELE Vincent Ma deline * Weight Change Since Preop Answer Entry Date Author 109.6 12/17/2024 7:05 AM GISELE Vincent Ma deline * Initial Excess Weight Answer Entry Date Author -86.18 12/17/2024 7:05 AM GISELE Vincent Ma deline * IBW in kg (Bariatric) Answer Entry Date Author 86.18 12/17/2024 7:05 AM GISELE Vincent Ma deline * IBW in lb (Bariatric) Answer Entry Date Author 190 12/17/2024 7:05 AM GISELE Vincent Ma deline * Weight Change Since Last Visit Answer Entry Date Author 10.8 12/17/2024 7:05 AM GISELE Vincent Ma deline * Percent of IBW Answer Entry Date Author 127.17 12/17/2024 7:05 AM GISELE Vincent Ma deline * EBW (kg) Answer Entry Date Author 23.4 12/17/2024 7:05 AM GISELE Vincent Ma deline * EBW (lb) Answer Entry Date Author 51.62 12/17/2024 7:05 AM GISELE Vincent Ma deline * Difference in Weight Since Last Visit Answer Entry Date Author 10.8 12/17/2024 7:05 AM GISELE Vincent Ma deline * Temp (in Celsius) for [place] IV Answer Entry Date Author 36.8 12/17/2024 7:05 AM GISELE Vincent Ma deline * IBW/kg (Calculated) Answer Entry Date Author 82.2 12/17/2024 7:05 AM GISELE Vincent Ma deline * Adult Low Range Vt 6mL/kg Answer Entry Date Author 493.2 12/17/2024 7:05 AM GISELE Vincent Ma deline * Adult Moderate Range Vt 8mL/kg Answer Entry Date Author 657.6 12/17/2024 7:05 AM GISELE Vincent Ma deline * Adult High Range Vt 10mL/kg Answer Entry Date Author 822 12/17/2024 7:05 AM GISELE Vincent Ma deline * BP Cuff Size Answer Entry Date Author Adult 12/17/2024 7:05 AM GISELE Vincent Ma deline * Vitals Timer Question Answer Entry Date Author Restart Vitals Timer Yes 12/17/2024 7:05 AM Stella Austin * Patient Position Answer Entry Date Author Sitting 12/17/2024 7:05 AM Pacheco Fajardo documented in this encounter Miscellaneous Notes * Progress Notes [...] He was last seen in clinic on 12/03/24. Since his last clinic visit, he has [...] history of alcohol abuse. Drinking approximately 1/5th [place] everyday for the 5 years. Last drink [...] Noted to [facility]. Likely in the setting of hemoperitoneum. 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 On Wellbutrin Quit tobacco 3 weeks ago [...] mL by mouth 2 times a day. 65018 mL 3 pantoprazole (Protonix) 40 MG EC [...] Care Team (Late st Contact Info) Description 02/17/2025 7:00 AM EST Clinical Support [facility] [place] [address] [place] [address] 02/17/2025 8:40 AM EST Office Visit [facility] [place] [address] [place] [address] [id number] [id number] 03/06/2025 11:10 AM EST Appointment [facility] [address] 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
--- OUTSIDE RECORDS SUMMARY | 2024-12-17 09:32 | XMS_ITS | Encounter Summary ---
Author Organization [facility] Address [address] [place] [address] Care Team Providers [employer] Director Name Role Phone Pcp, No Primary Care Provider Unavailabl e Reason for Referral * Consultation (Routine) - Pending Review Specialty Diagnoses / Procedures Referred By Contac t Referred To Contact Diagnoses Alcoholic cirrhosis, unspecified whether ascites present Symptomatic anemia Anemia, unspecified type Alcohol abuse, uncomplicated Alcohol use disorder, severe, dependence (CMS/HCC) Alcoholic hepatitis with ascites Decompensation of cirrhosis of liver (CMS/HCC) Depressive disorder Essential (primary) hypertension Generalized anxiety disorder Mild episode of recurrent major depressive disorder (CMS/HCC) Muscle weakness (generalized) Other cervical disc displacement, high cervical region Chronic pain of left knee Primary insomnia Spontaneous bacterial peritonitis Tobacco use disorder, continuous Unspecified jaundice Leroy Aponte MD [address] [place] [address] Phone: tel: fax: Referral ID Status Reason Start Date Expiration Date V isits Requested Visits Authorized [id number] Pending Review 12/20/2024 06/21/2026 1 1 Reason for Visit * Reason Comments Abnormal Lab * Auth/Cert (Routine) Specialty Diagnoses / Procedures Referred By Contac t Referred To Contact Diagnoses Anemia Symptomatic anemia Anemia, unspecified type Alcoholic cirrhosis, unspecified whether ascites present Hemoglobin 6.3 Leroy Aponte MD [address] [place] [address] Phone: tel: fax: [facility] [address] [place] [address] Phone: tel: Referral ID Status Reason Start Date Expiration Date Visits Re quested Visits Authorized [id number] 1 1 Encounter Details Date Type Department Care Team (Latest Contact Info) Description 12/17/2024 9:32 AM EST - 12/20/2024 2:30 AM [facility] Hospital Encounter [facility] [address] [place] [address] Dionicio Mason MD [address] [place] [address] Leroy Aponte MD [address] [place] [address] Alcoholic cirrhosis, unspecified whether ascites present (Primary Dx); Symptomatic anemia; Anemia, unspecified type; Alcohol abuse, uncomplicated; Alcohol use disorder, severe, dependence (CMS/HCC); Alcoholic hepatitis with ascites; Decompensation of cirrhosis of liver (CMS/HCC); Depressive disorder; Essential (primary) hypertension; Generalized anxiety disorder; Mild episode of recurrent major depressive disorder (CMS/HCC); Muscle weakness (generalized); Other cervical disc displacement, high cervical region; Chronic pain of left knee; Primary insomnia; Spontaneous bacterial peritonitis; Tobacco use disorder, continuous; Unspecified jaundice Discharge Disposition: Home or Self Care Social History Tobacco Use Types Packs/Day Years Used Date Smoking Tobacco: Never Passive Smoke Exposure: Current Smokeless Tobacco: Current Chew Alcohol Use Standard Drinks/Week Comments Not Currently 4 (1 standard drink = 0.6 oz pur e alcohol) Quit 2 months ago PHQ-2 Answer Date Recorded Patient Health Questionnaire-2 Score 0 02/02/2025 PHQ-9 Answer Date Recorded Patient Health Questionnaire-9 Score 9 01/20/2025 Humiliation, Afraid, Rape, and Kick questionnair e Answer Date Recorded Within the last year, have y ou been afraid of your partner or ex-partner? No 01/02/2025 Within the last year, have y ou been humiliated or emotionally abused in other ways by your partner or ex-partner? No Within the last year, have y ou been kicked, hit, slapped, or otherwise physically hurt by your partner or ex-partner? No 01/02/2025 Within the last year, have y ou been raped or forced to have any kind of sexual activity by your partner or ex-partner? No 01/02/2025 Social Connection and Isolation Panel Answer Date Recorded In a typical week, how many times do you talk on the phone with family, friends, or neighbors? More than three times a week 01/02/2025 How often do you get togethe r with friends or relatives? Twice a week 01/02/2025 Attends Hinduism Services Not on file 01/02 Do you belong to any clubs o r organizations such as jain groups, unions, fraternal or athletic groups, or school groups? No 01/02/2025 How often do you attend meet ings of the clubs or organizations you belong to? Never 01/02/2025 Are you , , di vorced, , never , or living with a partner? 01/02/2025 AUDIT-C Answer Date Recorded Q1: How often do you have a drink containing alcohol? Never 01/02/2025 Q2: How many drinks containi ng alcohol do you have on a typical day when you are drinking? Patient does not drink Q3: How often do you have si x or more drinks on one occasion? Never 01/02/2025 Overall Financial Resource Strain (CARDIA) Answe r Date Recorded How hard is it for you to pa y for the very basics like food, housing, medical care, and heating? Hard 01/02/2025 [facility] - Occupational Stress Questionnaire Answer Date Recorded Do you feel stress - tense, restless, nervous, or anxious, or unable to sleep at night because your mind is troubled all the time - these days? Rather much 01/02/2025 Exercise Vital Sign Answer Date Recorde d On average, how many days pe r week do you engage in moderate to strenuous exercise (like a brisk walk)? 2 days 01/02/2025 On average, how many minutes do you engage in exercise at this level? 30 min 01/02/2025 Hunger Vital Sign Answer Date Recorded Within the past 12 months, y ou worried that your food would run out before you got the money to buy more. Never true 01/03/20 25 Within the past 12 months, t he food you bought just didn't last and you didn't have money to get more. Never true 01/02/2025 PRAPARE - Transportation Answer Date Re corded In the past 12 months, has l ack of transportation kept you from medical appointments or from getting medications? No 12/14 In the past 12 months, has l ack of transportation kept you from meetings, work, or from getting things needed for daily living? No 01/02/2025 Housing Stability Vital Sign Answer Virgilio e Recorded In the last 12 months, was t here a time when you were not able to pay the mortgage or rent on time? No 01/02/2025 In the past 12 months, how m any times have you moved where you were living? 0 01/02/2025 At any time in the past 12 m [facility], were you homeless or living in a prison (including now)? No 01/02/2025 [facility] Utilities Answer Date Recorded In the past 12 months has th e electric, gas, oil, or water company threatened to shut off services in your home? No 01/02/2025 CAGE ASSESSMENT Answer Date Recorded Cage unable to access Not on file 01/02/2025 Cage max number of drinks Not on file 2024 Cage Beverages a week Not on file 01/02/2025 Have you ever felt you should CUT down on your d rinking? 1 01/02/2025 Have you been ANNOYED by people criticizing your drinking? 1 01/02/2025 Have you felt GUILTY about your drinking? 1 01/02/2025 Have you had a drink first t edgardo in the morning ([employer]) to steady your nerves or to get rid of a hangover? 1 01/02/2025 CAGE Questionnaire Score 4 025 Sex and Gender Information Value Date Recorded Sex Assigned at Not on file Legal Sex Male 2:45 PM EDT Gender Identity Not on file Sexual Orientation Not on file documented as of this encounter Last Filed Vital Signs Vital Sign Reading Time Taken Comments Blood Pressure 126/70 12/20/2024 11:15 AM EST Pulse 68 12/20/2024 11:15 AM EST Temperature 36.8 C (98.2 F) 12/20/2024 11:15 AM EST Respiratory Rate 17 12/20/2024 7:13 AM EST Oxygen Saturation 99% 12/20/2024 11:15 AM EST Inhaled Oxygen Concentration - - Weight 108 kg (238 lb 1.6 oz) 12/18/2024 9:38 AM EST Height 188 cm (6' 2.02 ) 12/18/2024 9:38 AM EST Body Mass Index 30.56 12/18/2024 9:38 AM EST documented in this encounter Functional Status * HEENT Question Answer Date of Assessment Author CLAUDIA (DAXA) WDL 12/20/2024 8:00 AM EST Ibisa te, Jans A, [employer] AND WASHER MECHANIC * BMI (Calculated) Answer Date of Assessment Author 30.6 12/18/2024 9:38 AM EST Philizair e Hycathryn Micale * Percent Excess Weight Loss Answer Date of Assessment Author 0 12/18/2024 9:38 AM EST Philizair e Hyacinthe, Micale * Total Weight Change Percent Answer Date of Assessment Author 2222 12/18/2024 9:38 AM EST Philizair e Hyacinthe, Micale * Weight Change Since Preop Answer Date of Assessment Author 107.98 12/18/2024 9:38 AM EST Philizair e Hyacinthe, Micale * Initial Excess Weight Answer Date of Assessment Author -86.23 12/18/2024 9:38 AM EST Philizair e Hyacinthe Micale * IBW in lbs (Bariatric) Answer Date of Assessment Author 190.1 12/18/2024 9:38 AM EST Philizair e Hyacinthe, Micale * Weight Change Since Last Visit Answer Date of Assessment Author 0 12/18/2024 9:38 AM EST Philizair e Hyacinthe, Micale * IBW in kg (Bariatric) Answer Date of Assessment Author 86.23 12/18/2024 9:38 AM EST Philizair e Hyacinthe, Micale * Percent of IBW Answer Date of Assessment Author 4,417.89 12/18/2024 9:38 AM EST Philizair e Hyacinthe, Micale * EBW (kg) Answer Date of Assessment Author 3,807.11 12/18/2024 9:38 AM EST Clementine Robins * EBW (lbs) Answer Date of Assessment Author 3,797.67 12/18/2024 9:38 AM EST Clementine Robins * Progress Answer Date of Assessment Author no change 12/20/2024 1:17 PM EST Radha Da Silva, [employer] AND W[employer]ER MECHANIC * Pain Management Interventions Answer Date of Assessment Author medication (see MAR) 12/20/2024 1:17 PM EST Marie ateRadha A, [employer] AND WASHER MECHANIC * Body Position Answer Date of Assessment Author weight shifting 12/20/2024 1:17 PM EST Radha Da Silva, [employer] AND WASHER MECHANIC * Trust Relationship/Rapport Answer Date of Assessment Author care explained 12/20/2024 1:17 PM EST Radha Da Silva, [employer] AND WASHER MECHANIC * Infection Prevention Answer Date of Assessment Author hand hygiene promoted 12/20/2024 1:17 PM EST Radha Montez, [employer] AND WASHER MECHANIC * Outcome Evaluation Answer Date of Assessment Author POC reviwed 12/20/2024 1:17 PM EST Radha Da Silva, [employer] AND WASHER MECHANIC * Medication Review/Management Answer Date of Assessment Author medications reviewed 12/20/2024 1:17 PM EST Radha Crawford, [employer] AND WASHER MECHANIC * VTE Prevention/Management Answer Date of Assessment Author SCDs (sequential compression devices) off 2024 1:17 PM EST Radha Da Silva, [employer] AND WASHER MECHANIC * Skin Protection Answer Date of Assessment Author drying agents applied 12/20/2024 1:17 PM EST Radha Montez, [employer] AND WASHER MECHANIC * Self-Care Promotion Answer Date of Assessment Author independence encouraged 12/20/2024 1:17 PM EST I bisateRadha, [employer] AND WASHER MECHANIC * Safety Interventions Question Answer Date of Assessment Author Safety Precautions/Falls Reduction family at bedside 12/17/2024 10:23 AM Maria Del Carmen Logan RN All Alarms none present 12/17/2024 10:23 AM Mirtha Logan RN * Goal: Anesthesia/Sedation Recovery Question Answer Date of Assessment Author Outcome Anesthesia/Sedation Recovery met 12/18/2024 11:50 AM Rodney Bain RN * General Emergency Care CPG Interventions Question Answer Date of Assessment Author Coping Interventions safe, supportive environment facilitated;family presence facilitated 12/17/2024 10:23 AM Mirtha Logan RN General Care Management calm environment promoted;positioned for comfort 12/17/2024 10:23 AM Mirtha Logan RN * Goal: Optimal Comfort and Wellbeing Question Answer Date of Assessment Author Outcome Optimal Comfort and Wellbeing met 12/18/2024 11:50 AM Rodney Bain RN * Goal: Minimized Risk/Safety Maintenance Question Answer Date of Assessment Author Outcome Minimized Risk and Safety met 025 11:50 AM Rodney Bain RN * Goal: Physiologic Homeostasis Question Answer Date of Assessment Author Outcome Physiologic Homeostasis met 11:50 AM Rodney Bain RN * Acuity/Destination Question Answer Date of Assessment Author Patient Acuity 3 12/17/2024 9:10 AM EST Barbara Ibrahim RN * Weight Change 24 hrs Answer Date of Assessment Author 0 12/18/2024 9:38 AM EST Clementine Robins * HLM Score Question Answer Date of Assessment Author HLM Daily Mobility Goal 7 12/18/2024 7:3 7 AM Patricia Johns RN HLM Daily Mobility Score 6 12/18/2024 7: 37 AM Patricia Johns RN * Plan of Care Reviewed With Answer Date of Assessment Author patient 12/20/2024 1:17 PM Radha Block LPN * Pressure Injury Prevention (PIP) Interventions Question Answer Date of Assessment Author Pressure Reducing Devices Pillow 12/20/2024 8:00 AM Radha Block LPN Bed Type Acute Care Bed 12/20/2024 8:00 AM Radha Hammer LPN * Behavioral Expectations Question Answer Date of Assessment Author Behavioral Expectations revi ewed with patient/guardian and family/partner in care? Yes 12/18/2024 6:03 PM Estee Hernandez RN * Vital Signs Question Answer Date of Assessment Author BP 126/70 12/20/2024 11:15 AM EST Lennox Pineda Flowsheet In Temp 98.2 12/20/2024 11:15 AM EST Susan mcfarland, Doc Flowsheet In Pulse 68 12/20/2024 11:15 AM EST Inte rfamoshe, Doc Flowsheet In Heart Rate Source Monitor 12/20/2024 5:04 AM Ana María Villavicencio RN BP Location Right arm 12/20/2024 5:04 AM Ana María Noe RN BP Method Automatic 12/20/2024 5:04 AM Ana María Noe RN MAP (mmHg) 89 12/20/2024 11:15 AM EST Susan mcfarland Doc Flowsheet In Patient Position Lying 12/20/2024 5:04 AM Ana María Capellan, DEMETRIA * Oxygen Therapy Question Answer Date of Assessment Author SpO2 99 12/20/2024 11:15 AM EST Lennox Pineda Flowsheet In Pulse Oximetry Type Intermittent 12/20/2024 7:13 AM Ana María Wright, DEMETRIA Patient Activity During SpO2 Measurement At rest 12/20/2024 7:13 AM Maco Villavicencio RN Oxygen Therapy None 12/20/2024 5:04 AM Ana María Giordano, DEMETRIA * Patient Observation Question Answer Date of Assessment Author Patient Observations all belongings with patient, no family present 12/17/2024 4:17 PM Azael Perez RN * Neurological Question Answer Date of Assessment Author L Pupil Reaction Brisk 12/19/2024 4:00 AM Janiya De La Cruz RN L Pupil Size (mm) 3 12/17/2024 12:00 PM Azael Peerz RN R Pupil Reaction Brisk 12/19/2024 4:00 AM Janiya De La Cruz RN R Pupil Size (mm) 3 12/17/2024 12:00 PM Azael Perez RN Neuro (DAXA) WDDeni 12/19/2024 4:00 AM Janiya Mata RN R Pupil Shape Round 12/19/2024 4:00 AM Janiya Delgadillo RN L Pupil Shape Round 12/19/2024 4:00 AM Janiya Delgadillo RN * Cardiac Question Answer Date of Assessment Author Cardiac (DAXA) WDL 12/19/2024 4:00 AM EST Janiya Davison RN * Gastrointestinal Question Answer Date of Assessment Author Most Recent [place] Date [id number] 12/20/2024 4:09 AM Ana María Wright RN Gastrointestinal ([facility]) WDL 12/20/2024 8:00 AM EST Ibisate, Jans A, [employer] W[employer] MECHANIC GI Symptoms None 12/19/2024 4:00 PM EST Yi Larsen RN Relieved by Antiemetic 12/17/2024 10:11 PM EST Rola Barcenas RN * Peripheral Vascular Question Answer Date of Assessment Author Peripheral Vascular (WDL) X 12/20/2024 8:00 AM EST Ibisate, Jans A, [employer] W[employer] MECHANIC Generalized Edema +2 12/20/2024 8:00 AM EST Ibisate, Jans A, [employer] W[employer]ER MECHANIC RUE Edema +2 12/20/2024 8:00 AM EST Ibisa te, Jans A, [employer] AND WASHER MECHANIC RLE Edema +2 12/20/2024 8:00 AM EST Ibisa te, Jans A, [employer] AND WASHER MECHANIC LUE Edema +2 12/20/2024 8:00 AM EST Ibisa te, Jans A, [employer] AND WASHER MECHANIC LLE Edema +2 12/19/2024 4:00 PM EST Yi Larsen RN Capillary Refill Less than/equal to 2 seconds (All extremities) 12/20/2024 8:00 AM EST Ibisate, Jans A, [employer] AND WASHER MECHANIC Pulses L radial;R radial 12/20/2024 8:00 AM EST Ibisate, Jans A, [employer] AND WASHER MECHANIC Edema Generalized 12/20/2024 8:00 AM EST Ibisa te, Jans A, [employer] AND W[employer]ER MECHANIC * RUE Neurovascular Assessment Question Answer Date of Assessment Author R Radial Pulse +2 12/20/2024 8:00 AM EST Ibi sate, Jans A, [employer] AND WASHER MECHANIC * LUE Neurovascular Assessment Question Answer Date of Assessment Author L Radial Pulse +2 12/20/2024 8:00 AM EST Ibi sate, Jans A, [employer] AND WASHER MECHANIC * RLE Neurovascular Assessment Question Answer Date of Assessment Author R Posterior Tibial Pulse +2 12/19/2024 4:00 PM EST Yi Recinos, DMEETRIA R Pedal Pulse +2 12/20/2024 8:00 AM EST Marie ate, Jans A, [employer] AND W[employer]ER MECHANIC * LLE Neurovascular Assessment Question Answer Date of Assessment Author L Posterior Tibial Pulse +2 12/19/2024 4:00 PM EST Yi Recinos, RN L Pedal Pulse +2 12/20/2024 8:00 AM EST Radha Crawford LPN * Musculoskeletal Question Answer Date of Assessment Author Musculoskeletal (WDL) WD 12/20/2024 8:00 AM EST Radah Da Silva LPN * Urine Assessment Question Answer Date of Assessment Author Urinary Incontinence No 12/20/2024 8:[address] Radha Da Silva LPN * Psychosocial Question Answer Date of Assessment Author Psychosocial ([facility]) [facility] 12/20/2024 8:00 AM EST Radha Da Silva LPN * Intake Question Answer Date of Assessment Author [address] 12/19/2024 5:00 PM EST Yi Larsen, DEMETRIA Percent Meals Eaten (%) 75 12/19/2024 5:00 P M EST Yi Recinos, RN Saline Flush (mL) 10 12/18/2024 3:00 PM EST Patricia Garcia, DEMETRIA * Silva Fall Risk Question Answer Date of Assessment Author History of Falling, Immediat e or Within 3 Months 25 12/20/2024 8:00 AM EST Radha Da Silva LPN Secondary Diagnosis 15 12/20/2024 8:00 AM Radha Connors LPN Ambulatory Aid 15 12/20/2024 8:00 AM EST Radha Montez LPN Intravenous Therapy/Heparin Lock 0 12/21/19 25 8:00 AM EST Radha Da Silva LPN Gait/Transferring 10 12/20/2024 8:00 AM EST Radha Da Silva LPN Mental Status 0 12/20/2024 8:00 AM EST Radha Crawford LPN Silva Fall Risk Score 65 12/20/2024 8:00 AM EST Radha Da Silva LPN * Rosendo Scale Question Answer Date of Assessment Author Sensory Perceptions 4 12/20/2024 8:00 AM Radha Connors LPN Moisture 4 12/20/2024 8:00 AM EST Radha Oconnor LPN Activity 3 12/20/2024 8:00 AM EST Ibisa te, Jans A, [employer] AND W[employer]ER MECHANIC Mobility 3 12/20/2024 8:00 AM EST Ibisa te, Jans A, [employer] AND W[employer]ER MECHANIC Nutrition 3 12/20/2024 8:00 AM EST Ibisa te, Jans A, [employer] AND W[employer]ER MECHANIC Friction and Shear 3 12/20/2024 8:00 AM EST Ibisate, Jans A, [employer] AND WASHER MECHANIC Rosendo Scale Score 20 12/20/2024 8:00 AM EST Ibisate, Jans A, [employer] AND WASHER MECHANIC * BSA (Calculated - sq m) Answer Date of Assessment Author 2.37 12/18/2024 9:38 AM EST Hersonair e Clementine Go * BMI (Calculated) Answer Date of Assessment Author 30.56 12/18/2024 9:38 AM EST Clementine Robins * Cardiac Question Answer Date of Assessment Author Telemetry Strip Reviewed Yes, I have reviewed and acknowledged. 12/17/2024 8:00 PM Rola Eller, peoplesoft administratorConsumer Insight Analyst On No 12/20/2024 8:[address] IbtaylorteRadha A, [employer] AND W[employer]ER MECHANIC Telemetry Audible No 12/20/2024 8:00 AM EST Ibisate Jans A, [employer] AND W[employer]ER MECHANIC Telemetry Alarms Set No 12/20/2024 8:[address] Ibisate, Jans A, [employer] AND WASHER MECHANIC Cardiac (WDL) WDL 12/20/2024 12:32 AM Ana María Giordano, DEMETRIA * Respiratory Question Answer Date of Assessment Author Bilateral Breath Sounds Clear 12/20/2024 8:00 A M EST IbtaylorteRadha A, [employer] AND WASHER MECHANIC R Breath Sounds Clear 12/20/2024 8:00 AM EST Ib isate Jans A, DR[employer] AND WASHER MECHANIC L Breath Sounds Clear 12/20/2024 8:00 AM EST Ib isate, Jans A, DR[employer]ER AND WASHER MECHANIC Respiratory (WDL) WDL 12/20/2024 8:00 AM EST Ibisate Jans A, DR[employer]ER AND WASHER MECHANIC * Vitals Question Answer Date of Assessment Author Height 74.016 12/18/2024 9:38 AM Clementine Bernal Weight 3809.55 12/18/2024 9:38 AM Clementine Bernal Height Method Stated 12/18/2024 9:38 AM Clementine Fontana * Patient Information Question Answer Date of Assessment Author Primary Caregiver Self 12/18/2024 2:45 PM Sadia Grissom RN Accompanied by/Relationship , Mom 12/18/2024 2:45 PM Sadia Grissom RN Support System Immediate family 12/18/2024 2:45 PM Sadia Grissom RN Patient's Education Level College 12/18/2024 2:45 PM Sadia Grissom RN * Activities of Daily Living Question Answer Date of Assessment Author Equipment Currently Used at Home none 12/18/2024 2:45 PM Sadia Grissom RN Functional Status Independent 12/18/2024 2:4 5 PM Sadia Grissom RN Living Arrangements Spouse/Significant other;Children 12/18/2024 2:45 PM Sadia Grissom RN Type of Residence Single Level 12/18/2024 2:4 5 PM Sadia Grissom RN * Advance Directives (For Healthcare) Question Answer Date of Assessment Author Advance Directive Patient would not li ke information 12/18/2024 6:03 PM Estee Hernandez RN Pre-existing DNR/DNI Order No 12/18/2024 6:03 PM Estee Hernandez RN Information Provided on Healthcare Directives No 12/18/2024 6:03 PM Estee Hernandez RN Patient Requests Assistance No 12/18/2024 6:03 PM Estee Hernandez RN Have you reviewed your Advance Directive and is it valid for this stay? No 12/18/2024 6:03 PM Estee Hernandez RN * Nutrition Screen Question Answer Date of Assessment Author Difficulty Chewing or Swallowing No 12/19/19 6:05 PM Estee Hernandez RN Burn, Pressure Injury, or Non-Healing Wound No 12/18/2024 6:05 PM Estee Hernandez RN Home Tube Feeding or Total Parenteral Nutrition (TPN) No 12/18/2024 6:05 PM Aminata Hernandez cca, RN Food allergy, Hinduism, or Cultural nutrition needs No 12/18/2024 6:05 PM Park Hernandez RN * Trauma/Abuse Assessment Question Answer Date of Assessment Author Physical Abuse Denies 12/18/2024 6:03 PM GISELE Josse hurst Estee Cheema RN Verbal Abuse Denies 12/18/2024 6:03 PM Estee Hernandez RN * Values/Beliefs Question Answer Date of Assessment Author Cultural Requests During Hospitalization none 12/18/2024 6:03 PM Estee Hernandez RN Spiritual Requests During Hospitalization none 12/18/2024 6:03 PM Estee Hernandez RN Unable to assess No 12/18/2024 6:03 PM GISELE Claudy Estee king RN * Genitourinary Question Answer Date of Assessment Author Genitourinary ([facility]) WD 12/20/2024 8:00 AM Radha Connors LPN * Neurological Question Answer Date of Assessment Author Level of Consciousness Alert 8:00 AM Radha Block LPN Orientation Level Oriented X4 12/20/2024 8:0 0 AM Radha Block LPN Cognition Appropriate judgement;Appropriate safety awareness;Appropriate attention/concentration; Appropriate for developmental age;Follows commands 12/20/2024 8:00 AM Radha Block LPN Speech Clear 12/20/2024 8:00 AM Radha Block LPN Neuro ([facility]) WD 12/20/2024 8:00 AM Radha Block LPN Swallow Able to swallow toño ds and liquids without difficulty 12/20/2024 8:00 AM Radha Block LPN Pupil Assessment Yes 12/17/2024 8:00 PM EST Rola Huff RN * Height and Weight Question Answer Date of Assessment Author Weight Method Stated 12/17/2024 9:09 AM Barbraa Jin RN * Safe Environment Question Answer Date of Assessment Author 37-Pin Connection [Bed and Wall] Yes 12/20/2024 8:00 AM Radha Block LPN Arm Bands On ID 12/20/2024 8:00 AM Radha Rawls LPN Side Rails/Bed Safety 2/2 12/20/2024 8:00 AM EST Ibisate, Jans A, DRYER AND WASHER MECHANIC NonSkid Footwear Patient in bed 12/20/2024 8:00 AM EST Ibisate, Jans A, DRYER AND WASHER MECHANIC The Patient's Environment is Safe Yes 12/20/2024 8:00 AM EST Ibisate, Jans A, DRYER AND WASHER MECHANIC Head of Bed Angle 30 12/20/2024 8:00 AM EST Ibisate, Jans A, DRYER AND WASHER MECHANIC Bed Foot Left Rail Up State No 12/20/2024 8:00 AM EST Ibisate, Jans A, DRYER AND WASHER MECHANIC Bed Head Right Rail Up State Yes 12/20/2024 8:00 AM EST Ibisate, Jans A, DRYER AND WASHER MECHANIC Bed Head Left Rail Up State Yes 12/20/2024 8:00 AM EST Ibisate, Jans A, DRYER AND WASHER MECHANIC Bed Foot Right Rail Up State No 12/20/2024 8:00 AM EST Ibisate, Jans A, DRYER AND WASHER MECHANIC Bed Exit System Activate Status No 12/20/2024 8:00 AM EST Ibisate, Jans A, DRYER AND WASHER MECHANIC Bed Brake State Yes 12/20/2024 8:00 AM EST Ib isate, Jans A, DRYER AND WASHER MECHANIC Bed Low Height State Yes 12/20/2024 8:[address] Ibisate, Jans A, DRYER AND WASHER MECHANIC Chair Exit System Activate Status No 12/20/2024 8:00 AM EST Ibisate, Jans A, DRYER AND WASHER MECHANIC * Fall Risk Interventions Question Answer Date of Assessment Author Safety Promotion/Fall Prevention activity supervised;assistive device/personal items within reach;clutter-free environment maintained;fall prevention program maintained;lighting adjusted;nonskid shoes/slippers when out of bed;room organization consistent;safety round/check completed 12/20/2024 8:00 AM EST Ibisate, Jans A, [employer]CH[employer]IC Enhanced Safety Measures room near unit station 12/20/2024 8:00 AM EST Ibisate, Jans A, [employer] MECH[employer]IC Toilet Every 2 Hours-In Advance of Need Yes 12/20/2024 8:00 AM EST Ibisate, Jans A, [employer] W[employer]ER MECHANIC Hourly Visual Checks In bed;Quiet 12/20/2024 8:[address] Ibisate, Jans A, [employer] MECH[employer]IC Room Door Open Deferred to decrease stimulation;Deferred to promote rest 12/20/2024 8:00 AM Radha Block LPN Gait Belt Used For Transfers Not applicable 12/20/2024 8:00 AM Radha Block LPN Fall Bundle Components Call light within reach;Personal belongings within reach;Overbed table within reach;Bed in lowest position;Bed wheels locked;Non-skid footwear on if up in chair or ambulating;Staff to remain with patient during toileting 12/20/2024 8:00 AM Radha Block LPN * Mobility Question Answer Date of Assessment Author Range of Motion active ROM (range of motion) encouraged 12/20/2024 8:00 AM Radha Block LPN Activity Management activity adjusted pe r tolerance 12/20/2024 8:00 AM Radha Block LPN Activity Assistance Provided assistance, stand-by 12/20/2024 8:00 AM Radha Block LPN Head of Bed (HOB) Positioning HOB elevated 12/20/2024 8:00 AM Radha Block LPN Distance Ambulated (ft) 60 12/18/2024 8:00 A M Patricia Johns RN Ambulation Response Tolerated fairly well 12/18/2024 8 :00 AM Patricia Johns, DEMETRIA Repositioned Turns self 12/20/2024 8:00 AM Radha Rawls LPN Head of Bed Elevated HOB 45 12/20/2024 8:[address] Radah Da Silva LPN Heels/Feet Heels elevated off bed;Foot of bed elevated 12/20/2024 8:00 AM Radha Block LPN Reason for Removing Anti-Embolism Device Ambulating 12/20/2024 8:00 AM Radha Blokc LPN Positioning Frequency Able to turn self 12/20/2024 8:0 0 AM Radha Block LPN * Hygiene Question Answer Date of Assessment Author Oral Care mouth moisturizer 12/20/2024 8:00 AM Radha Block LPN Oral Care (Yes/No) Yes 12/20/2024 8:00 AM EST Ibisate, Jans A, [employer]CH[employer]IC * Precautions Question Answer Date of Assessment Author Isolation Precautions precautions maintained 09/2024 8:00 AM EST Radha Da Silva A, [employer]CH[employer]IC Precautions Environmental surveillance;Fall risk 12/20/2024 8:00 AM EST Radha Da Silva A, [employer]CH[employer]IC * Comfort and Environment Interventions Question Answer Date of Assessment Author Comfort Repositioned 12/20/2024 8:00 AM EST Radha Oconnor A, [employer]CH[employer]IC * Safety Equipment at Bedside Question Answer Date of Assessment Author Standard Bedside Safety Ambu bags in hallway 12/20/2024 8:00 AM EST Radha Da Silva A, [employer]CH[employer]IC Additional Bedside Safety Bed in locked and low position;Clutter free environment 12/20/2024 8:00 AM EST Radha Da Silva A, [employer]CH[employer]IC * IBW/kg (Calculated) Male Answer Date of Assessment Author 82.24 12/18/2024 9:38 AM EST Philizair e Donavan Micale * IBW/kg (Calculated) Female Answer Date of Assessment Author 77.74 12/18/2024 9:38 AM EST Philizair e Donavan Micale * Consults Question Answer Date of Assessment Author Integrative Medicine Consult Needed No 12/18 6:03 PM Estee Hernandez RN Pastoral Care Consult Needed No 12/18/2024 6 :03 PM Estee Hernandez RN Social Services Consult Needed No 12/18/2024 6:03 PM Estee Hernandez RN * Therapy Consults Question Answer Date of Assessment Author PT Evaluation Needed 1 12/18/2024 6:03 PM Estee Cerna RN OT Evaluation Needed 1 12/18/2024 6:03 PM Estee Cerna RN METER READER Evaluation Needed 2 12/18/2024 6:03 PM Estee Hernandez RN * Assistive Devices Question Answer Date of Assessment Author Assistive Devices None 12/18/2024 6:03 PM Estee Hernandez RN * Provider Notification Question Answer Date of Assessment Author Provider Role Hospitalist 12/19/2024 4:00 PM Yi Fuller, RN Provider Name Martina BURGOS 12/19/2024 4:00 PM Yi Fuller, RN Method of Communication Secure message 12/19/2024 4:00 PM Yi Jensen, DEMETRIA Reason for Communication Evaluate 12/19/2024 4:00 PM Yi Jensen RN Response See orders 12/19/2024 4:00 PM Yi Combs RN * End of Shift Review Question Answer Date of Assessment Author Shift Review Complete Yes 12/18/2024 8:00 PM Janiya Bergeron RN Shift Report Received From Fina Garcia RN 12/18/2024 8:00 PM Geraldine Bergeron RN Shift Report Given To Fina David RN 12/18/2024 8:00 P M Janiya Bergeron RN * Hourly Rounding Question Answer Date of Assessment Author Hourly Rounding Complete Per Guideline Yes 12/20/2024 8:00 AM Radha Block LPN * Patient Violence Risk Assessment Question Answer Date of Assessment Author History of Violence: In the past 12 hours has the PATIENT exhibited any of the following? None 12/20/2024 8:00 AM Radha Block LPN Potential for Violence: In the past 12 hours has the PATIENT exhibited any of the following? None 12/20/2024 8:00 AM Radha Block LPN Risk No identified risk 12/20/2024 8:00 AM Radha Block LPN History of Violence: In the past 12 hours has a PARTNER IN CARE of the patient exhibited any of the following? None 12/20/2024 8:00 AM Radha Block LPN * Mobility Question Answer Date of Assessment Author Ambulation Stand by 12/20/2024 8:00 AM Radha Rawls LPN * Airway Question Answer Date of Assessment Author Airway (WDL) WDL 12/17/2024 10:21 AM Mirtha Logan RN * Breathing Question Answer Date of Assessment Author Breathing (WDL) WDL 12/17/2024 10:21 AM EST Mirtha Velasco, DEMETRIA * Circulation Question Answer Date of Assessment Author Circulation (WDL) X 12/17/2024 10:21 AM Mirtha Logan, DEMETRIA * Disability Question Answer Date of Assessment Author Disability (WDL) [facility] 12/17/2024 10:21 AM EST Mirtha Gamez RN * Restart Vitals Timer Answer Date of Assessment Author Yes 12/20/2024 7:13 AM Ana María Villavicencio RN * Neurological Question Answer Date of Assessment Author Neuro ([facility]) [facility] 12/18/2024 11:47 AM EST Rodney Vance, DEMETRIA * Cardiac Question Answer Date of Assessment Author Cardiac ([facility]) [facility] 12/18/2024 11:47 AM EST Rodney Valverde, RN * IBW/kg (Calculated) Answer Date of Assessment Author 82.24 12/18/2024 9:38 AM EST Clementine Robins * STOP-Bang Questionnaire Question Answer Date of Assessment Author Do you snore loudly? 0 12/18/2024 6:03 PM Estee Cerna RN Do you often feel tired or f atigued after your sleep? 0 12/18/2024 6:03 PM Estee Hernandez RN Has anyone ever observed you stop breathing in your sleep? 0 12/18/2024 6:03 PM Park Hernandez RN Do you have or are you being treated for high blood pressure? 0 12/18/2024 6:03 PM Estee Hernandez RN Is BMI greater than 35 kg/m2? 0=No 12/18/2024 6:03 PM Estee Hernandez RN Age older than 50 years old? 0=No 12/18/2024 6 :03 PM Estee Hernandez RN Is your neck circumference g reater than 17 inches (Male) or 16 inches (Female)? 0 12/18/2024 6:03 PM Estee Hernandez RN Gender - Male 1=Yes 12/18/2024 6:03 PM Estee Hernandez RN STOP-Bang Total Score 1 12/18/2024 6:03 PM Estee Hernandez RN Recent BMI (Calculated) 30.6 12/18/2024 6:03 P M Estee Hernandez RN * Patient Answered Questionnaire Question Answer Date of Assessment Author Exercise tolerance Walk 1-2 blocks on level ground without stopping 12/18/2024 6:03 PM Estee Hernandez RN Implanted devices 0 12/18/2024 6:03 PM Estee Hernandez RN * Pneumococcal Vaccine Screen - Year Round Question Answer Date of Assessment Author Have you ever had a pneumoni a vaccination? Unsure 12/18/2024 6:05 PM Estee Hernandez RN * Calculated C-SSRS Risk Score (Lifetime/Recent) Answer Date of Assessment Author No Risk Indicated 12/19/2024 8:00 AM Yi Membreno RN * Regent Coma Scale Question Answer Date of Assessment Author Best Eye Response Spontaneous 12/20/2024 8:00 AM Radha Block LPN Best Verbal Response Oriented 12/20/2024 8:00 AM Radha Rivera LPN Best Motor Response Follows commands 12/20/2024 8:00 A M Radha Block LPN Regent Coma Scale Score 15 12/20/2024 8:00 AM Radha Block LPN * Learning Assessment Question Answer Date of Assessment Author Education Level College 12/17/2024 10:23 AM Mirtha Chavarria RN Factors that Impact Ability to Learn None 12/17/2024 10:23 AM Maria Del Carmen Logan RN Cultural Considerations None 12/17/2024 10:23 AM Mirtha Logan RN Hinduism Considerations None 12/17/2024 10:23 AM Mirtha Logan RN * Abuse Screen Question Answer Date of Assessment Author Are you or have you been threatened or abused physically, emotionally, or sexually by a partner, spouse, or family member? No 12/17/2024 10:23 AM Mirtha Logan RN * KINDER 1 Fall Risk Factor Assessment Question Answer Date of Assessment Author Presented to ED because of fall 0 12/17/2024 10:21 AM Mirtha Logan RN Age > 70 0 12/17/2024 10:21 AM Mirtha Logan RN Intoxicated with alcohol or substance confusion 0 12/17/2024 10:21 AM Mirtha Logan RN Ambulates or transfers with assistive devices or assist 0 12/17/2024 10:21 AM Mirtha Logan RN Unable to ambulate or transfer 0 12/17/2024 10:21 AM Mirtha Logan RN Nursing judgement 1 12/17/2024 10: 21 AM Mirtha Logan RN KINDER 1 Fall Risk Score 1 025 10:21 AM Mirtha Logan RN High Fall Risk Interventions for Scores 1 and above Non-skid socks on patient as appropriate;Bed in lowest position and locked;Call light within reach;Belongings within reach;Patient refused bundle components (comment details).;Following general safety rules;Supervising/ass isting with ADL's and mobility;Patient/fami ly told to always call for assistance;Patient/fa alma rosa educated on additional fall prevention tips 12/17/2024 10:21 AM Mirtha Logan RN * [place] Suicide Severity Rating Scale Question Answer Date of Assessment Author Is patient awake, alert, and able to answer questions appropriately? Yes 12/17/2024 10:21 AM Maria Del Carmen Logan RN * Patient Belongings Placed in Locker Question Answer Date of Assessment Author Clothing Pants;Shirt;Footwear ;Socks 12/17/2024 10:24 AM Mirtha Logan RN Belongings at Bedside Clothing;Electroni c devices 12/17/2024 10:24 AM Mirtha Logan RN * Peripheral Vascular Question Answer Date of Assessment Author Peripheral Vascular (WDL) X 12/17/2024 10:2 4 AM Mirtha Logan RN * Weight in (lb) to have BMI = 25 Answer Date of Assessment Author 194.4 12/18/2024 9:38 AM Clementine Echavarria * BMI (Calculated) Answer Date of Assessment Author 30.6 12/18/2024 9:38 AM Clementine Echavarria * Percent Excess Weight Loss Answer Date of Assessment Author 0 12/18/2024 9:38 AM Clementine Echavarria * Weight Change Since Preop Answer Date of Assessment Author 108 12/18/2024 9:38 AM EST Philizair e Hycathryn Micale * Initial Excess Weight Answer Date of Assessment Author -86.23 12/18/2024 9:38 AM EST Philizair e Hyjuan carlosthe, Micale * IBW in kg (Bariatric) Answer Date of Assessment Author 86.23 12/18/2024 9:38 AM EST Philizair e Hyacinthe, Micale * IBW in lb (Bariatric) Answer Date of Assessment Author 190.1 12/18/2024 9:38 AM EST Philizair e Hyjuan carlosthe, Micale * Weight Change Since Last Visit Answer Date of Assessment Author 0 12/18/2024 9:38 AM EST Philizair e Hyacinthe, Micale * Percent of IBW Answer Date of Assessment Author 125.25 12/18/2024 9:38 AM EST Philizair e Hyjuan carlosthe, Micale * EBW (kg) Answer Date of Assessment Author 21.75 12/18/2024 9:38 AM EST Philizair e Hyjuan carlosthe Micale * EBW (lb) Answer Date of Assessment Author 48 12/18/2024 9:38 AM EST Philizair e Hyjuan carlosthe Micale * Difference in Weight Since Last Visit Answer Date of Assessment Author 0 12/18/2024 9:38 AM EST Philizair e Hycathryn Micale * Housing Circumstances-Z Codes Question Answer Date of Assessment Author Housing Circumstances (select all that apply) None Applicable 12/18/2024 2:45 PM Elizabet Grissom RN * Vitals Question Answer Date of Assessment Author Temp src Oral 12/20/2024 7:13 AM Ana María Noe RN Resp 17 12/20/2024 7:13 AM Ana María Noe RN * Temp (in Celsius) for [place] Answer Date of Assessment Author 36.8 12/20/2024 11:15 AM EST Carlos A e, Doc Flowsheet In * Pain Assessment Question Answer Date of Assessment Author Pain Location Abdomen 12/18/2024 7:37 AM Patricia Zuniga RN Patient's Stated Pain Goal No pain 12/19/2024 8:51 PM Ana María Villavicencio RN Patient is asleep Yes, assume pain is decreased 12/20/2024 4:09 AM Ana María Villavicencio, DEMETRIA Pain Type Acute pain 12/18/2024 7:37 AM Patricia Pearce RN Pain Score 0 12/20/2024 8:00 AM Radha Rawls LPN Pain Assessment 0-10 (Adult DVPRS/Pe ds 0-10) 12/20/2024 8:00 AM Radha Block LPN * Nutrition Question Answer Date of Assessment Author Diet Type Regular 12/20/2024 8:00 AM Radha Rawls LPN Feeding Able to feed self 12/20/2024 8:00 AM Radha Block LPN Appetite Fair 12/18/2024 8:00 PM Janiya Mata RN * IBW/kg (Calculated) Answer Date of Assessment Author 82.24 12/18/2024 9:38 AM EST Philsukumar e Donavan Micale * Adult Low Range Vt 6mL/kg Answer Date of Assessment Author 493.44 12/18/2024 9:38 AM EST Philizair e Hycathryn Micale * Adult Moderate Range Vt 8mL/kg Answer Date of Assessment Author 657.92 12/18/2024 9:38 AM EST Philizair e Hycathryn Micale * Adult High Range Vt 10mL/kg Answer Date of Assessment Author 822.4 12/18/2024 9:38 AM EST Philizair e Hycathryn Micakasandra * Respiratory Interventions Question Answer Date of Assessment Author Respiratory Interventions Cough and deep breathing 12/20/2024 8:00 AM Radha Block LPN * Cough and Deep Breathe Question Answer Date of Assessment Author Cough And Deep Breathing done independently per patient 12/20/2024 8:00 AM Radha Block LPN * Patient Belongings Sent Home Question Answer Date of Assessment Author Patient Electronics Cell phone 12/17/2024 10:24 AM Mirtha Paez RN * Integumentary Question Answer Date of Assessment Author Skin Color Jaundice 12/20/2024 8:00 AM Radha Rawls LPN Skin Condition/Temp Warm;Dry 12/20/2024 8:00 AM ES T Radha Da Silva LPN Skin Turgor Non-tenting 12/20/2024 8:00 AM EST Radha Oconnor LPN Skin Tone Medium 12/20/2024 8:00 AM EST Radha Oconnor LPN Integumentary (WDL) X 12/20/2024 8:00 AM ES T Radha Da Silva LPN * Confusion Assessment Method (CAM) Question Answer Date of Assessment Author Acute Onset and Fluctuating Course (1A) No 12/20/2024 8:00 AM EST Radha Da Silva LPN * Confusion Assessment Method-ICU (CAM-ICU/PCAM-ICU) Question Answer Date of Assessment Author Feature 1: Acute Onset or Fluctuating Course Negative 12/19/2024 4:00 AM Geraldine Bergeron RN * Feature 3: Altered Level of Consciousness Answer Date of Assessment Author Negative 12/20/2024 8:00 AM EST Radha Da Silva LPN * Overall CAM-ICU/PCAM-ICU Answer Date of Assessment Author Negative 12/19/2024 4:00 AM Janiya Bergeron RN * Sedation Scales Question Answer Date of Assessment Author Sedation Scale Used [place] Agitation Sedation Scale 12/20/2024 8:00 AM Radha Block LPN RASS 0 12/20/2024 8:00 AM EST Radha Oconnor LPN * Urine Output/Assessment Question Answer Date of Assessment Author Unmeasured Urine Occurrence 1 12/19/2024 12 :00 PM EST Yi Recinos RN * Stool Output/Assessment Question Answer Date of Assessment Author Unmeasured Stool Occurrence (hourly total) 1 12/19/2024 5:00 PM EST Chris Recinos RN Stool Color [place] 12/19/2024 5:00 PM EST Yi Larsen RN Stool Amount Medium 12/19/2024 5:00 PM EST Yi Larsen RN Stool Appearance Loose 12/19/2024 5:00 PM EST Yi Banuelos RN Bowel Incontinence No 12/20/2024 8:00 AM EST Radha Da Silva LPN [place] Stool Assessment Gravy 12/19/2024 5:00 PM EST Yi Recinos RN * Fall Risk Calculated Score Answer Date of Assessment Author Silva High 12/20/2024 8:00 AM Radha Block LPN * Patient Specific Goals Question Answer Date of Assessment Author Patient/Family-Specific Goals (Include Timeframe) Patient will be free from falls during the shift. 12/20/2024 8:00 AM Radha Block LPN Individualized Care Needs Ongoing 12/20/2024 8:00 AM Radha Block LPN Anxieties, Fears or Concerns None 12/20/2024 8:00 AM Radha Block LPN * Able to Complete Psychiatric Screening Question Answer Date of Assessment Author Were you able to complete al l the behavioral health screenings? Yes 12/18/2024 6:03 PM Merry Hernandez RN * Delirium Assessment Question Answer Date of Assessment Author Delirium Prevention & Management Yes 12/20/2024 8:00 AM Radha Block LPN Delirium Prevention & Management: Early Mobility Ambulate to extent of patient's ability;Up to chair for meals;Out of room if possible;Educate patient and family about the benfits of early mobility in the hospital 12/20/2024 8:00 AM Radha Block LPN Delirium Prevention & Management: Cognitive Engagement Emotional support provided 12/20/2024 8:00 AM Radha Block LPN Delirium Prevention & Management: Optimize Sleep/Wake Cycles Lighting decreased at night;Natural light during the day;Calming techniques provided 12/20/2024 8:00 AM Radha Block LPN Delirium Scale Used Confusion Assessment Method 12/19/2024 8:51 PM Ana María Villavicencio RN * Regent Coma Scale Numeric Answer Date of Assessment Author 15 12/20/2024 8:00 AM Radha Block LPN * Elevate heels task - custom formula Answer Date of Assessment Author 1 12/20/2024 8:00 AM Radha Block LPN * Skin Color/Condition Question Answer Date of Assessment Author Skin Pertinent Negatives Warm;Intact;Dry 12/17/2024 10 :26 AM Mirtha Logan RN Skin Color/Condition (WDL) X 12/17/2024 10:26 AM EST Van Hooser, Heat her J, RN * Vitals Timer Question Answer Date of Assessment Author Restart Vitals Timer Yes 12/20/2024 7:13 AM Ana María Jerez RN * Vitals Question Answer Date of Assessment Author Cardiac Rhythm NSR 12/18/2024 9:38 AM Jin Bazzi RN * Respiratory Assessment Question Answer Date of Assessment Author Respiratory (WDL) WDL 12/18/2024 11:47 AM Rodney Bain RN * Integumentary Question Answer Date of Assessment Author Integumentary (WDL) X 12/18/2024 11:47 AM Rodney Avila RN * Modified Mickey Question Answer Date of Assessment Author Activity 2 12/18/2024 11:47 AM Rodney Katz RN Respiration 2 12/18/2024 11:47 AM Rodney Katz RN Hemodynamic Stability 2 12/18/2024 11:47 AM Rodney Bain RN Consciousness 2 12/18/2024 11:47 AM Rodney Nowak RN Oxygen Saturation 2 12/18/2024 11:47 AM Rodney Bain RN Modified Mickey Score 14 12/18/2024 11:47 A M Rodney Bain RN Pain 2 12/18/2024 11:47 AM Rodney Katz RN Emetic Symptoms 2 12/18/2024 11:47 AM Rodney Catherine RN * Hourly Rounding Question Answer Date of Assessment Author Activity Assistance Patient independent 12/18/19 11:15 AM Mirtha Logan RN Toileting Independent 12/17/2024 11:15 AM Mirtha Logan RN Call Light Hallway 12/17/2024 11:15 AM Mirtha Logan RN Rest/ Sleep No problem identified;Awake 12/17/2024 11:15 AM Mirtha Logan RN Rest/ Sleep Enhancement Care clustered t o minimize awakenings 12/17/2024 11:15 AM Mirtha Logan RN Completed Hourly Rounding Yes 12/17/2024 11:15 AM Mirtha Logan RN Plan of Care Reviewed With Patient 12/17/2024 11:15 AM Mirtha Logan RN * Elopement Risk Screen Question Answer Date of Assessment Author Does the patient exhibit any of the following behaviors? No 12/20/2024 8:00 AM West Block LPN Does the patient have a cour t ordered legal guardian? No 12/20/2024 8:00 AM Radha Block LPN * C-SSRS (Frequent Screener) Question Answer Date of Assessment Author Is patient awake, alert, and able/willing to answer questions appropriately? Yes 12/20/2024 8:00 AM Radha Block LPN 1. Wish to be (Past 1 Month) No 12/19/2024 8:00 AM Chris Jensen RN 2. Non-Specific Active Suici joceline Thoughts (Past 1 Month) No 12/19/2024 8:00 AM Pablito Jensen RN 6. Suicidal Behavior (Lifetime) No 8:00 AM Yi Jensen RN * Deferred Question Answer Date of Assessment Author Unable to assess No 12/18/2024 6:03 PM Estee Oropeza RN * Deferred Question Answer Date of Assessment Author Unable to assess No 12/18/2024 6:03 PM Estee Oropeza RN * [facility] 6-Clicks Mobility Assessment Question Answer Date of Assessment Author Difficulty patient has turni ng over in bed (including adjusting bedclothes, sheets, and blankets)? 3 12/18/2024 6:03 PM Estee Diamond RN Difficulty patient has sitti ng down on and standing up from a chair with arms (wheelchair, bedside commode, etc.)? 3 12/18/2024 6:03 PM Estee Hernandez RN Difficulty patient has movin g from lying on back to sitting on the side of the bed? 3 12/18/2024 6:03 PM Estee Hernandez RN How much help does the patie nt need moving to and from a bed to a chair (including a wheelchair)? 3 12/18/2024 6:03 PM Aida Hernandez RN How much help does the patie nt need to walk in hospital room? 3 12/18/2024 6:03 PM EST Aida Guzman RN How much help does the patie nt need climbing 3-5 steps with a railing? 3 12/18/2024 6:03 PM Estee Diamond RN [facility] 6-Clicks Mobility Asse ssment Total 18 12/18/2024 6:03 PM Estee Hernandez RN * HEENT Question Answer Date of Assessment Author HEENT (WDL) WDL 12/20/2024 8:00 AM EST Melody teRadha A, [employer]CH[employer]IC * Pain Management Interventions Answer Date of Assessment Author medication (see MAR) 12/20/2024 1:17 PM EST Marie ateRadha A, [employer]CH[employer]IC * Body Position Answer Date of Assessment Author weight shifting 12/20/2024 1:17 PM EST Radha Da Silva A, [employer]CH[employer]IC * Trust Relationship/Rapport Answer Date of Assessment Author care explained 12/20/2024 1:17 PM EST Radha Da Silva A, [employer]CH[employer]IC * Infection Prevention Answer Date of Assessment Author hand hygiene promoted 12/20/2024 1:17 PM EST Radha Montez A, [employer]CH[employer]IC * Outcome Evaluation Answer Date of Assessment Author POC reviwed 12/20/2024 1:17 PM EST Radha Da Silva A, [employer]CH[employer]IC * Medication Review/Management Answer Date of Assessment Author medications reviewed 12/20/2024 1:17 PM EST Radha Crawford A, [employer]CH[employer]IC * VTE Prevention/Management Answer Date of Assessment Author SCDs (sequential compression devices) off 2024 1:17 PM EST Radha Da Silva A, [employer]CH[employer]IC * Skin Protection Answer Date of Assessment Author drying agents applied 12/20/2024 1:17 PM EST Ludmila satRadha rosas A, [employer]CH[employer]IC * Self-Care Promotion Answer Date of Assessment Author independence encouraged 12/20/2024 1:17 PM EST I bisateRadha A, [employer]CH[employer]IC * Safety Interventions Question Answer Date of Assessment Author Safety Precautions/Falls Reduction family at bedside 12/17/2024 10:23 AM Maria Del Carmen Logan RN All Alarms none present 12/17/2024 10:23 AM Mirtha Logan RN * Goal: Anesthesia/Sedation Recovery Question Answer Date of Assessment Author Outcome Anesthesia/Sedation Recovery met 12/18/2024 11:50 AM Rodney Bain RN * General Emergency Care CPG Interventions Question Answer Date of Assessment Author Coping Interventions safe, supportive environment facilitated;family presence facilitated 12/17/2024 10:23 AM Mirtha Logan RN General Care Management calm environment promoted;positioned for comfort 12/17/2024 10:23 AM Mirtha Logan RN * Goal: Optimal Comfort and Wellbeing Question Answer Date of Assessment Author Outcome Optimal Comfort and Wellbeing met 12/18/2024 11:50 AM Rodney Bain RN * Goal: Minimized Risk/Safety Maintenance Question Answer Date of Assessment Author Outcome Minimized Risk and Safety met 025 11:50 AM Rodney Bain RN * Goal: Physiologic Homeostasis Question Answer Date of Assessment Author Outcome Physiologic Homeostasis met 11:50 AM Rodney Bain RN * HLM Score Question Answer Date of Assessment Author [facility] Daily Mobility Goal 7 12/18/2024 7:3 7 AM Patricia Johns RN [facility] Daily Mobility Score 6 12/18/2024 7: 37 AM Patricia Johns RN * Plan of Care Reviewed With Answer Date of Assessment Author patient 12/20/2024 1:17 PM Radha Block LPN * Pressure Injury Prevention (PIP) Interventions Question Answer Date of Assessment Author Pressure Reducing Devices Pillow 12/20/2024 8:00 AM Radha Block LPN Bed Type Acute Care Bed 12/20/2024 8:00 AM Radha Hammer LPN * Vital Signs Question Answer Date of Assessment Author BP 126/70 12/20/2024 11:15 AM Lennox Pham Flowsheet In Temp 98.2 12/20/2024 11:15 AM Lennox Pham Flowsheet In Pulse 68 12/20/2024 11:15 AM Lennox Pham Flowsheet In Heart Rate Source Monitor 12/20/2024 5:04 AM Ana María Villavicencio RN BP Location Right arm 12/20/2024 5:04 AM Ana María Noe RN BP Method Automatic 12/20/2024 5:04 AM Ana María Noe RN MAP (mmHg) 89 12/20/2024 11:15 AM EST Lennox Pineda Flowsheet In Patient Position Lying 12/20/2024 5:04 AM Ana María Capellan, DEMETRIA * Oxygen Therapy Question Answer Date of Assessment Author SpO2 99 12/20/2024 11:15 AM EST Susan mcfarland, Doc Flowsheet In Pulse Oximetry Type Intermittent 12/20/2024 7:13 AM Ana María Wright, DEMETRIA Patient Activity During SpO2 Measurement At rest 12/20/2024 7:13 AM Maco Villavicencio RN Oxygen Therapy None 12/20/2024 5:04 AM EST Ana María Steen RN * Neurological Question Answer Date of Assessment Author L Pupil Reaction Brisk 12/19/2024 4:00 AM EST Janiya Hawkins RN L Pupil Size (mm) 3 12/17/2024 12:00 PM EST Azael Rincon RN R Pupil Reaction Brisk 12/19/2024 4:00 AM EST Janiya Hawkins RN R Pupil Size (mm) 3 12/17/2024 12:00 PM EST Azael Rincon RN Neuro ([facility]) WDL 12/19/2024 4:00 AM EST Janiya Aguilar RN R Pupil Shape Round 12/19/2024 4:00 AM EST Janiya Davison RN L Pupil Shape Round 12/19/2024 4:00 AM EST Janiya Davison RN * Gastrointestinal Question Answer Date of Assessment Author Most Recent BM Date [id number] 12/20/2024 4:09 AM Ana María Wright RN Gastrointestinal ([facility]) WDL 12/20/2024 8:00 AM EST Radha Da Silva LPN GI Symptoms None 12/19/2024 4:00 PM EST Yi Larsen, DEMETRIA Relieved by Antiemetic 12/17/2024 10:11 PM EST Rola Barcenas, RN * Peripheral Vascular Question Answer Date of Assessment Author Peripheral Vascular ([facility]) X 12/20/2024 8:00 AM EST Ibisate, Jans A, [employer]CH[employer]IC Generalized Edema +2 12/20/2024 8:00 AM EST Ibisate, Jans A, [employer]CH[employer]IC RUE Edema +2 12/20/2024 8:00 AM EST Ibisa te, Jans A, [employer]CH[employer]IC RLE Edema +2 12/20/2024 8:00 AM EST Ibisa te, Jans A, [employer] MECH[employer]IC LUE Edema +2 12/20/2024 8:00 AM EST Ibisa te, Jans A, [employer] W[employer]ER MECH[employer]IC LLE Edema +2 12/19/2024 4:00 PM EST Yi Larsen, RN Capillary Refill Less than/equal to 2 seconds (All extremities) 12/20/2024 8:00 AM EST Ibisate, Jans A, [employer] MECH[employer]IC Pulses L radial;R radial 12/20/2024 8:00 AM EST Ibisate, Jans A, [employer] W[employer] MECH[employer]IC Edema Generalized 12/20/2024 8:00 AM EST Ibisa te, Jans A, [employer]CH[employer]IC * RUE Neurovascular Assessment Question Answer Date of Assessment Author R Radial Pulse +2 12/20/2024 8:00 AM EST Ibi sate, Jans A, [employer]CH[employer]IC * LUE Neurovascular Assessment Question Answer Date of Assessment Author L Radial Pulse +2 12/20/2024 8:00 AM EST Ibi sate, Jans A, [employer] MECH[employer]IC * RLE Neurovascular Assessment Question Answer Date of Assessment Author R Posterior Tibial Pulse +2 12/19/2024 4:00 PM EST Yi Recinos, DEMETRIA R Pedal Pulse +2 12/20/2024 8:00 AM EST Marie ate, Jans A, [employer]CH[employer]IC * LLE Neurovascular Assessment Question Answer Date of Assessment Author L Posterior Tibial Pulse +2 12/19/2024 4:00 PM Yi Jensen, RN L Pedal Pulse +2 12/20/2024 8:00 AM EST Marie ate, Jans A, [employer]CH[employer]IC * Musculoskeletal Question Answer Date of Assessment Author Musculoskeletal (WDL) WDL 12/20/2024 8:00 AM EST Ibisate, Jans A, [employer]CH[employer]IC * Urine Assessment Question Answer Date of Assessment Author Urinary Incontinence No 12/20/2024 8:[address] Ibisate Jans A, [employer]CH[employer]IC * Psychosocial Question Answer Date of Assessment Author Psychosocial (WDL) WDL 12/20/2024 8:00 AM EST Ibisate, Jans A, [employer] MECH[employer]IC * Silva Fall Risk Question Answer Date of Assessment Author History of Falling, Immediat e or Within 3 Months 25 12/20/2024 8:00 AM EST Radha Da Silva, [employer]CH[employer]IC Secondary Diagnosis 15 12/20/2024 8:00 AM ES Radha Wiley LPN Ambulatory Aid 15 12/20/2024 8:00 AM EST Keithi sateRadha LPN Intravenous Therapy/Heparin Lock 0 12/21/19 25 8:00 AM EST IbtaylorteRadha, [employer]ER MECHANIC Gait/Transferring 10 12/20/2024 8:00 AM EST IbisateRadha A, [employer] MECHANIC Mental Status 0 12/20/2024 8:00 AM EST Marie ateRadha LPN Silva Fall Risk Score 65 12/20/2024 8:00 AM EST MelodyteRadha A [employer]ER MECH[employer]IC * Rosendo Scale Question Answer Date of Assessment Author Sensory Perceptions 4 12/20/2024 8:00 AM ES Radha Wiley, [employer]CH[employer]IC Moisture 4 12/20/2024 8:00 AM EST Ibisa te, Radha A, [employer] MECH[employer]IC Activity 3 12/20/2024 8:00 AM EST Ibisa te, Jans A, [employer] W[employer]ER MECHANIC Mobility 3 12/20/2024 8:00 AM EST Ibisa te, Jans A, [employer] W[employer]ER MECHANIC Nutrition 3 12/20/2024 8:00 AM EST Ibisa te, Radha A, [employer] W[employer] MECH[employer]IC Friction and Shear 3 12/20/2024 8:00 AM EST IbtaylorteRadha, [employer] W[employer]ER MECHANIC Rosendo Scale Score 20 12/20/2024 8:00 AM EST IbisateRadha A, [employer] W[employer]ER MECHANIC * BSA (Calculated - sq m) Answer Date of Assessment Author 2.37 12/18/2024 9:38 AM EST Clementine Robins * BMI (Calculated) Answer Date of Assessment Author 30.56 12/18/2024 9:38 AM EST Clementine Robins * Cardiac Question Answer Date of Assessment Author Telemetry Strip Reviewed Yes, I have reviewed and acknowledged. 12/17/2024 8:00 PM Rola Eller, peoplesoft administratorConsumer Insight Analyst On No 12/20/2024 8:[address] Ibisate, Jans A, [employer]ER MECH[employer]IC Telemetry Audible No 12/20/2024 8:00 AM EST IbRadha felix A, [employer]ER MECH[employer]IC Telemetry Alarms Set No 12/20/2024 8:[address] Ibtaylorte, Radha A, [employer] W[employer]ER MECHANIC Cardiac (WDL) WDL 12/20/2024 12:32 AM Ana María Giordano, DEMETRIA * Respiratory Question Answer Date of Assessment Author Bilateral Breath Sounds Clear 12/20/2024 8:00 A M EST MelodyteRadha A, [employer]ER MECHANIC R Breath Sounds Clear 12/20/2024 8:00 AM EST Ib isate, Jans A, [employer] W[employer]ER MECHANIC L Breath Sounds Clear 12/20/2024 8:00 AM EST Ib isate, Radha A, [employer] W[employer]ER MECHANIC Respiratory (WDL) WDL 12/20/2024 8:00 AM EST Ibtaylorte Jans A, [employer] W[employer]ER MECHANIC * Vitals Question Answer Date of Assessment Author Height 74.016 12/18/2024 9:38 AM Clementine Bernal Weight 3809.55 12/18/2024 9:38 AM Clementine Bernal * Patient Information Question Answer Date of Assessment Author Accompanied by/Relationship , Mom 12/18/2024 2:45 PM Sadia Grissom RN Support System Immediate family 12/18/2024 2:45 PM Sadia Grissom RN * Activities of Daily Living Question Answer Date of Assessment Author Equipment Currently Used at Home none 12/18/2024 2:45 PM Sadia Grissom RN Living Arrangements Spouse/Significant other;Children 12/18/2024 2:45 PM Sadia Grissom RN Type of Residence Single Level 12/18/2024 2:45 PM Sadia Grissom RN * Advance Directives (For Healthcare) Question Answer Date of Assessment Author Advance Directive Patient would not li ke information 12/18/2024 6:03 PM Estee Hernandez RN Pre-existing DNR/DNI Order No 12/18/2024 6:03 PM Estee Hernandez, RN Information Provided on Healthcare Directives No 12/18/2024 6:03 PM Estee eHrnandez RN Patient Requests Assistance No 12/18/2024 6:03 PM Estee Hernandez RN Have you reviewed your Advance Directive and is it valid for this stay? No 12/18/2024 6:03 PM Estee Hernandez RN * Nutrition Screen Question Answer Date of Assessment Author Difficulty Chewing or Swallowing No 12/19/19 6:05 PM Estee Hernandez RN Burn, Pressure Injury, or Non-Healing Wound No 12/18/2024 6:05 PM Estee Hernandez RN Home Tube Feeding or Total Parenteral Nutrition (TPN) No 12/18/2024 6:05 PM Aminata Hernandez cca, RN Food allergy, Hinduism, or Cultural nutrition needs No 12/18/2024 6:05 PM Park Hernandez RN * Trauma/Abuse Assessment Question Answer Date of Assessment Author Physical Abuse Denies 12/18/2024 6:03 PM GISELE Josse hurstEstee RN Verbal Abuse Denies 12/18/2024 6:03 PM Estee Hernandez RN * Values/Beliefs Question Answer Date of Assessment Author Cultural Requests During Hospitalization none 12/18/2024 6:03 PM Estee Hernandez RN Spiritual Requests During Hospitalization none 12/18/2024 6:03 PM Estee Hernandez RN Unable to assess No 12/18/2024 6:03 PM Estee Oropeza RN * Genitourinary Question Answer Date of Assessment Author Genitourinary ([facility]) WD 12/20/2024 8:00 AM Radha Connors LPN * Neurological Question Answer Date of Assessment Author Level of Consciousness Alert 8:00 AM Radha Block LPN Orientation Level Oriented X4 12/20/2024 8:0 0 AM Radha Block LPN Cognition Appropriate judgement;Appropriate safety awareness;Appropriate attention/concentration; Appropriate for developmental age;Follows commands 12/20/2024 8:00 AM Radha Block LPN Speech Clear 12/20/2024 8:00 AM Radha Block LPN Neuro ([facility]) WD 12/20/2024 8:00 AM EST Ibisate, Jans A, [employer] AND W[employer]ER MECHANIC Swallow Able to swallow toño ds and liquids without difficulty 12/20/2024 8:00 AM EST Radha Da Silva, [employer] W[employer] MECHANIC Pupil Assessment Yes 12/17/2024 8:00 PM Rola Eller RN * Safe Environment Question Answer Date of Assessment Author 37-Pin Connection [Bed and Wall] Yes 12/20/2024 8:00 AM EST Radha Da Silva, [employer] W[employer]ER MECHANIC Arm Bands On ID 12/20/2024 8:00 AM EST Ibisa te, Radha A, [employer] W[employer]ER MECHANIC Side Rails/Bed Safety 2/2 12/20/2024 8:00 AM EST Ibisate Jans A, DR[employer] AND WASHER MECHANIC NonSkid Footwear Patient in bed 12/20/2024 8:00 AM EST IbisateRadha A, DRYER AND WASHER MECHANIC The Patient's Environment is Safe Yes 12/20/2024 8:00 AM EST IbisateRadha A, DR[employer] AND WASHER MECHANIC Head of Bed Angle 30 12/20/2024 8:00 AM EST Ibisate, Jans A, [employer] AND WASHER MECHANIC Bed Foot Left Rail Up State No 12/20/2024 8:00 AM EST Ibisate, Jans A, DRYER AND WASHER MECHANIC Bed Head Right Rail Up State Yes 12/20/2024 8:00 AM EST Ibisate, Jans A, DR[employer]ER AND WASHER MECHANIC Bed Head Left Rail Up State Yes 12/20/2024 8:00 AM EST Ibisate, Jans A, [employer] AND W[employer]ER MECHANIC Bed Foot Right Rail Up State No 12/20/2024 8:00 AM EST Ibisate, Jans A, DR[employer] AND WASHER MECHANIC Bed Exit System Activate Status No 12/20/2024 8:00 AM EST Ibisate, Jans A, DR[employer] AND WASHER MECHANIC Bed Brake State Yes 12/20/2024 8:00 AM EST Ib isate, Jans A, DR[employer]ER AND WASHER MECHANIC Bed Low Height State Yes 12/20/2024 8:[address] Ibisate, Radha A, [employer] AND WASHER MECHANIC Chair Exit System Activate Status No 12/20/2024 8:00 AM EST Ibisate Jans A, [employer] AND WASHER MECHANIC * Fall Risk Interventions Question Answer Date of Assessment Author Safety Promotion/Fall Prevention activity supervised;assistive device/personal items within reach;clutter-free environment maintained;fall prevention program maintained;lighting adjusted;nonskid shoes/slippers when out of bed;room organization consistent;safety round/check completed 12/20/2024 8:00 AM Radha Block LPN Enhanced Safety Measures room near unit station 12/20/2024 8:00 AM Radha Block LPN Toilet Every 2 Hours-In Advance of Need Yes 12/20/2024 8:00 AM Radha Block LPN Hourly Visual Checks In bed;Quiet 12/20/2024 8:00 AM E Radha Foster LPN Room Door Open Deferred to decrease stimulation;Deferred to promote rest 12/20/2024 8:00 AM Radha Block LPN Gait Belt Used For Transfers Not applicable 12/20/2024 8:00 AM Radha Block LPN Fall Bundle Components Call light within reach;Personal belongings within reach;Overbed table within reach;Bed in lowest position;Bed wheels locked;Non-skid footwear on if up in chair or ambulating;Staff to remain with patient during toileting 12/20/2024 8:00 AM Radha Block LPN * Mobility Question Answer Date of Assessment Author Range of Motion active ROM (range of motion) encouraged 12/20/2024 8:00 AM Radha Block LPN Activity Management activity adjusted pe r tolerance 12/20/2024 8:00 AM Radha Block LPN Activity Assistance Provided assistance, stand-by 12/20/2024 8:00 AM Radha Block LPN Head of Bed (HOB) Positioning HOB elevated 12/20/2024 8:00 AM Radha Block LPN Distance Ambulated (ft) 60 12/18/2024 8:00 A M Patricia Johns, DEMETRIA Ambulation Response Tolerated fairly well 12/18/2024 8 :00 AM Patricia Johns, DEMETRIA Repositioned Turns self 12/20/2024 8:00 AM Radha Rawls LPN Head of Bed Elevated HOB 45 12/20/2024 8:00 AM E Radha Foster LPN Heels/Feet Heels elevated off bed;Foot of bed elevated 12/20/2024 8:00 AM Radha Block LPN Reason for Removing Anti-Embolism Device Ambulating 12/20/2024 8:00 AM Radha Block LPN Positioning Frequency Able to turn self 12/20/2024 8:0 0 AM Radha Block LPN * Hygiene Question Answer Date of Assessment Author Oral Care mouth moisturizer 12/20/2024 8:00 AM Radha Block LPN Oral Care (Yes/No) Yes 12/20/2024 8:00 AM Radha Block LPN * Precautions Question Answer Date of Assessment Author Isolation Precautions precautions maintained 09/2024 8:00 AM Radha Block LPN Precautions Environmental surveillance;Fall risk 12/20/2024 8:00 AM Radha Block LPN * Comfort and Environment Interventions Question Answer Date of Assessment Author Comfort Repositioned 12/20/2024 8:00 AM Radha Rawls LPN * Safety Equipment at Bedside Question Answer Date of Assessment Author Standard Bedside Safety Ambu bags in hallway 12/20/2024 8:00 AM Radha Block LPN Additional Bedside Safety Bed in locked and low position;Clutter free environment 12/20/2024 8:00 AM Radha Block LPN * Consults Question Answer Date of Assessment Author Integrative Medicine Consult Needed No 12/18 6:03 PM Estee Hernandez RN Pastoral Care Consult Needed No 12/18/2024 6 :03 PM Estee Hernandez RN Social Services Consult Needed No 12/18/2024 6:03 PM Estee Hernandez RN * Therapy Consults Question Answer Date of Assessment Author PT Evaluation Needed 1 12/18/2024 6:03 PM Estee Cerna RN OT Evaluation Needed 1 12/18/2024 6:03 PM Estee Cerna RN METER READER Evaluation Needed 2 12/18/2024 6:03 PM Estee Hernandez RN * Assistive Devices Question Answer Date of Assessment Author Assistive Devices None 12/18/2024 6:03 PM Estee Hernandez RN * Provider Notification Question Answer Date of Assessment Author Provider Role Hospitalist 12/19/2024 4:00 PM Yi Fuller, DEMETRIA Provider Name Martina 12/19/2024 4:00 PM Yi Fuller, RN Method of Communication Secure message 12/19/2024 4:00 PM Yi Jensen, DEMETRIA Reason for Communication Evaluate 12/19/2024 4:00 PM Yi Jensen, RN Response See orders 12/19/2024 4:00 PM Yi Combs, DEMETRIA * End of Shift Review Question Answer Date of Assessment Author Shift Review Complete Yes 12/18/2024 8:00 PM Janiya Bergeron RN Shift Report Received From Fina Garcia RN 12/18/2024 8:00 PM Geraldine Bergeron RN Shift Report Given To Fina David RN 12/18/2024 8:00 P M Janiya Bergeron RN * Hourly Rounding Question Answer Date of Assessment Author Hourly Rounding Complete Per Guideline Yes 12/20/2024 8:00 AM Radha Block LPN * Patient Violence Risk Assessment Question Answer Date of Assessment Author History of Violence: In the past 12 hours has the PATIENT exhibited any of the following? None 12/20/2024 8:00 AM Radha Block LPN Potential for Violence: In the past 12 hours has the PATIENT exhibited any of the following? None 12/20/2024 8:00 AM Radha Block LPN Risk No identified risk 12/20/2024 8:00 AM Radha Block LPN History of Violence: In the past 12 hours has a PARTNER IN CARE of the patient exhibited any of the following? None 12/20/2024 8:00 AM Radha Block LPN * Mobility Question Answer Date of Assessment Author Ambulation Stand by 12/20/2024 8:00 AM Radha Rawls LPN * Restart Vitals Timer Answer Date of Assessment Author Yes 12/20/2024 7:13 AM Ana María Villavicencio, DEMETRIA * STOP-Bang Questionnaire Question Answer Date of Assessment Author Do you snore loudly? 0 12/18/2024 6:03 PM Estee Cerna RN Do you often feel tired or f atigued after your sleep? 0 12/18/2024 6:03 PM Estee Hernandez RN Has anyone ever observed you stop breathing in your sleep? 0 12/18/2024 6:03 PM Park Hernandez RN Do you have or are you being treated for high blood pressure? 0 12/18/2024 6:03 PM Estee Hernandez RN Is BMI greater than 35 kg/m2? 0=No 12/18/2024 6:03 PM Estee Hernandez RN Age older than 50 years old? 0=No 12/18/2024 6 :03 PM Estee Hernandez RN Is your neck circumference g reater than 17 inches (Male) or 16 inches (Female)? 0 12/18/2024 6:03 PM Estee Hernandez RN Gender - Male 1=Yes 12/18/2024 6:03 PM Estee Hernandez RN STOP-Bang Total Score 1 12/18/2024 6:03 PM Estee Hernandez RN Recent BMI (Calculated) 30.6 12/18/2024 6:03 P M Estee Hernandez RN * Calculated C-SSRS Risk Score (Lifetime/Recent) Answer Date of Assessment Author No Risk Indicated 12/19/2024 8:00 AM Yi Membreno RN * Regent Coma Scale Question Answer Date of Assessment Author Best Eye Response Spontaneous 12/20/2024 8:00 AM Radha Block LPN Best Verbal Response Oriented 12/20/2024 8:00 AM Radha Rivera LPN Best Motor Response Follows commands 12/20/2024 8:00 A M Radha Block LPN Regent Coma Scale Score 15 12/20/2024 8:00 AM Radha Block LPN * Learning Assessment Question Answer Date of Assessment Author Education Level College 12/17/2024 10:23 AM Mirtha Chavarria RN Factors that Impact Ability to Learn None 12/17/2024 10:23 AM Maria Del Carmen Logan RN Cultural Considerations None 12/17/2024 10:23 AM Mirtha Logan RN Hinduism Considerations None 12/17/2024 10:23 AM Mritha Logan RN * KINDER 1 Fall Risk Factor Assessment Question Answer Date of Assessment Author Presented to ED because of fall 0 12/17/2024 10:21 AM Mirtha Logan RN Age > 70 0 12/17/2024 10:21 AM Mirtha Logan RN Intoxicated with alcohol or substance confusion 0 12/17/2024 10:21 AM Mirtha Logan RN Ambulates or transfers with assistive devices or assist 0 12/17/2024 10:21 AM Mirtha Logan RN Unable to ambulate or transfer 0 12/17/2024 10:21 AM Mirtha Logan RN Nursing judgement 1 12/17/2024 10: 21 AM Mirtha Logan RN KINDER 1 Fall Risk Score 1 025 10:21 AM Mirtha Logan RN High Fall Risk Interventions for Scores 1 and above Non-skid socks on patient as appropriate;Bed in lowest position and locked;Call light within reach;Belongings within reach;Patient refused bundle components (comment details).;Following general safety rules;Supervising/ass isting with ADL's and mobility;Patient/fami ly told to always call for assistance;Patient/fa alma rosa educated on additional fall prevention tips 12/17/2024 10:21 AM Mirtha Logan RN * Patient Belongings Placed in Locker Question Answer Date of Assessment Author Clothing Pants;Shirt;Footwear ;Socks 12/17/2024 10:24 AM Mirtha Logan RN Belongings at Bedside Clothing;Electroni c devices 12/17/2024 10:24 AM Mirtha Logan RN * Weight in (lb) to have BMI = 25 Answer Date of Assessment Author 194.4 12/18/2024 9:38 AM Clementine Echavarria * Vitals Question Answer Date of Assessment Author Devon jones Oral 12/20/2024 7:13 AM Ana María Noe, RN Resp 17 12/20/2024 7:13 AM Ana María Noe RN * Pain Assessment Question Answer Date of Assessment Author Pain Location Abdomen 12/18/2024 7:37 AM EST Patricia Srinivasan RN Patient's Stated Pain Goal No pain 12/19/2024 8:51 PM EST Ana María Livingston RN Patient is asleep Yes, assume pain is decreased 12/20/2024 4:09 AM EST Ana María Livingston RN Pain Type Acute pain 12/18/2024 7:37 AM EST Patricia Fine RN Pain Score 0 12/20/2024 8:00 AM EST Radha Oconnor LPN Pain Assessment 0-10 (Adult DVPRS/Pe ds 0-10) 12/20/2024 8:00 AM Radha Block LPN * Nutrition Question Answer Date of Assessment Author Diet Type Regular 12/20/2024 8:00 AM Radha Rawls LPN Feeding Able to feed self 12/20/2024 8:00 AM Radha Block LPN Appetite Fair 12/18/2024 8:00 PM EST Janiya Aguilar RN * Respiratory Interventions Question Answer Date of Assessment Author Respiratory Interventions Cough and deep breathing 12/20/2024 8:00 AM Radha Block LPN * Cough and Deep Breathe Question Answer Date of Assessment Author Cough And Deep Breathing done independently per patient 12/20/2024 8:00 AM Radha Block LPN * Patient Belongings Sent Home Question Answer Date of Assessment Author Patient Electronics Cell phone 12/17/2024 10:24 AM Mirtha Paez RN * Integumentary Question Answer Date of Assessment Author Skin Color Jaundice 12/20/2024 8:00 AM Radha Rawls LPN Skin Condition/Temp Warm;Dry 12/20/2024 8:00 AM ES T Radha Da Silva LPN Skin Turgor Non-tenting 12/20/2024 8:00 AM Radha Rawls LPN Skin Tone Medium 12/20/2024 8:00 AM Radha Rawls LPN Integumentary (WDL) X 12/20/2024 8:00 AM ELIZABET T Radha Da Silva LPN * Confusion Assessment Method (CAM) Question Answer Date of Assessment Author Acute Onset and Fluctuating Course (1A) No 12/20/2024 8:00 AM Radha Block LPN * Confusion Assessment Method-ICU (CAM-ICU/PCAM-ICU) Question Answer Date of Assessment Author Feature 1: Acute Onset or Fluctuating Course Negative 12/19/2024 4:00 AM EST Geraldine David RN * Feature 3: Altered Level of Consciousness Answer Date of Assessment Author Negative 12/20/2024 8:00 AM Radha Block LPN * Overall CAM-ICU/PCAM-ICU Answer Date of Assessment Author Negative 12/19/2024 4:00 AM EST Janiya David RN * Sedation Scales Question Answer Date of Assessment Author RASS 0 12/20/2024 8:00 AM EST Radha Oconnor LPN * Stool Output/Assessment Question Answer Date of Assessment Author Unmeasured Stool Occurrence (hourly total) 1 12/19/2024 5:00 PM EST Chris Recinos RN Stool Color [place] 12/19/2024 5:00 PM EST Yi Larsen RN Stool Amount Medium 12/19/2024 5:00 PM EST Yi Larsen RN Stool Appearance Loose 12/19/2024 5:00 PM EST Yi Banuelos RN Bowel Incontinence No 12/20/2024 8:00 AM Radha Block LPN [place] Stool Assessment Gravy 12/19/2024 5:00 PM EST Yi Recinos RN * Patient Specific Goals Question Answer Date of Assessment Author Patient/Family-Specific Goals (Include Timeframe) Patient will be free from falls during the shift. 12/20/2024 8:00 AM Radha Block LPN Individualized Care Needs Ongoing 12/20/2024 8:00 AM Radha Block LPN Anxieties, Fears or Concerns None 12/20/2024 8:00 AM Radha Block LPN * Delirium Assessment Question Answer Date of Assessment Author Delirium Prevention & Management Yes 12/20/2024 8:00 AM Radha Block LPN Delirium Prevention & Management: Early Mobility Ambulate to extent of patient's ability;Up to chair for meals;Out of room if possible;Educate patient and family about the benfits of early mobility in the hospital 12/20/2024 8:00 AM Radha Block LPN Delirium Prevention & Management: Cognitive Engagement Emotional support provided 12/20/2024 8:00 AM Radha Block LPN Delirium Prevention & Management: Optimize Sleep/Wake Cycles Lighting decreased at night;Natural light during the day;Calming techniques provided 12/20/2024 8:00 AM Radha Block LPN Delirium Scale Used Confusion Assessment Method 12/19/2024 8:51 PM Ana María Villavicencio RN * Vitals Question Answer Date of Assessment Author Cardiac Rhythm NSR 12/18/2024 9:38 AM Jin Bazzi RN * Hourly Rounding Question Answer Date of Assessment Author Activity Assistance Patient independent 12/18/19 11:15 AM Mirtha Logan RN Toileting Independent 12/17/2024 11:15 AM Mirtha Logan RN Call Light Hallway 12/17/2024 11:15 AM Mirtha Logan RN Rest/ Sleep No problem identified;Awake 12/17/2024 11:15 AM Mirtha Logan RN Rest/ Sleep Enhancement Care clustered t o minimize awakenings 12/17/2024 11:15 AM Mirtha Logan RN Completed Hourly Rounding Yes 12/17/2024 11:15 AM Mirtha Logan RN Plan of Care Reviewed With Patient 12/17/2024 11:15 AM Mirtha Logan RN * Elopement Risk Screen Question Answer Date of Assessment Author Does the patient exhibit any of the following behaviors? No 12/20/2024 8:00 AM West Block LPN Does the patient have a cour t ordered legal guardian? No 12/20/2024 8:00 AM Radha Block LPN * C-SSRS (Frequent Screener) Question Answer Date of Assessment Author Is patient awake, alert, and able/willing to answer questions appropriately? Yes 12/20/2024 8:00 AM Radha Block LPN 1. Wish to be (Past 1 Month) No 12/19/2024 8:00 AM Chris Jensen RN 2. Non-Specific Active Suici joceline Thoughts (Past 1 Month) No 12/19/2024 8:00 AM Pablito Jensen RN 6. Suicidal Behavior (Lifetime) No 8:00 AM Yi Jensen RN * Deferred Question Answer Date of Assessment Author Unable to assess No 12/18/2024 6:03 PM Estee Hernandez RN * [facility] 6-Clicks Mobility Assessment Question Answer Date of Assessment Author Difficulty patient has turni ng over in bed (including adjusting bedclothes, sheets, and blankets)? 3 12/18/2024 6:03 PM Estee Diamond RN Difficulty patient has sitti ng down on and standing up from a chair with arms (wheelchair, bedside commode, etc.)? 3 12/18/2024 6:03 PM Estee Hernandez RN Difficulty patient has movin g from lying on back to sitting on the side of the bed? 3 12/18/2024 6:03 PM Estee Hernandez RN How much help does the patie nt need moving to and from a bed to a chair (including a wheelchair)? 3 12/18/2024 6:03 PM Aida Hernandez RN How much help does the patie nt need to walk in hospital room? 3 12/18/2024 6:03 PM Aida Hernandez RN How much help does the patie nt need climbing 3-5 steps with a railing? 3 12/18/2024 6:03 PM Estee Diamond RN [facility] 6-Clicks Mobility Asse ssment Total 18 12/18/2024 6:03 PM Estee Hernandez RN documented as of this encounter Mental Status * HEENT Question Answer Entry Date Author CLAUDIA (WDL) WDL 12/20/2024 8:00 AM Radha Rawls LPN * BMI (Calculated) Answer Entry Date Author 30.6 12/18/2024 9:38 AM EST Philizair e Hyacinthe, Micale * Percent Excess Weight Loss Answer Entry Date Author 0 12/18/2024 9:38 AM EST Philizair e Hyacinthe, Micale * Total Weight Change Percent Answer Entry Date Author 2222 12/18/2024 9:38 AM EST Philizair e Hyacinthe, Micale * Weight Change Since Preop Answer Entry Date Author 107.98 12/18/2024 9:38 AM EST Philizair e Hyacinthe, Micale * Initial Excess Weight Answer Entry Date Author -86.23 12/18/2024 9:38 AM EST Philizair e Hyacinthe, Micale * IBW in lbs (Bariatric) Answer Entry Date Author 190.1 12/18/2024 9:38 AM EST Philizair e Hyacinthe, Micale * Weight Change Since Last Visit Answer Entry Date Author 0 12/18/2024 9:38 AM EST Philizair e Hyacinthe, Micale * IBW in kg (Bariatric) Answer Entry Date Author 86.23 12/18/2024 9:38 AM EST Philizair e Hyacinthe, Micale * Percent of IBW Answer Entry Date Author 4,417.89 12/18/2024 9:38 AM EST Philizair e Hyacinthe, Micale * EBW (kg) Answer Entry Date Author 3,807.11 12/18/2024 9:38 AM EST Philizair e Hyacinthe, Micale * EBW (lbs) Answer Entry Date Author 3,797.67 12/18/2024 9:38 AM EST Philizair e Hyacinthe, Micale * Patient Profile Question Answer Entry Date Author Referral From Senior Office Assistant Initiated 12/17/2024 3:30 PM Jarrod Leon Pastoral Care Provided For Patient 12/17/2024 3:3 0 PM Jarrod Peña Consult Reasons Emotional support 12/17/2024 3:30 PM Jarrod Mills * Progress Answer Entry Date Author no change 12/20/2024 1:17 PM EST KeithisateRadha, DRYER AND WASHER MECHANIC * Pain Management Interventions Answer Entry Date Author medication (see MAR) 12/20/2024 1:17 PM EST MarieRadha beach, DRYER AND WASHER MECHANIC * Body Position Answer Entry Date Author weight shifting 12/20/2024 1:17 PM EST Radha Da Silva, DRYER AND WASHER MECHANIC * Trust Relationship/Rapport Answer Entry Date Author care explained 12/20/2024 1:17 PM EST Radha Da Silva A, [employer]ER AND WASHER MECHANIC * Infection Prevention Answer Entry Date Author hand hygiene promoted 12/20/2024 1:17 PM EST Radha Montez, DRYER AND WASHER MECHANIC * Outcome Evaluation Answer Entry Date Author POC reviwed 12/20/2024 1:17 PM EST Radha Da Silva, DRYER AND WASHER MECHANIC * Medication Review/Management Answer Entry Date Author medications reviewed 12/20/2024 1:17 PM EST Marie ateRadha, DRYER AND WASHER MECHANIC * VTE Prevention/Management Answer Entry Date Author SCDs (sequential compression devices) off 2024 1:17 PM EST Radha Da Silva, DRYER AND WASHER MECHANIC * Skin Protection Answer Entry Date Author drying agents applied 12/20/2024 1:17 PM EST Radha Montez, DRYER AND WASHER MECHANIC * Self-Care Promotion Answer Entry Date Author independence encouraged 12/20/2024 1:17 PM EST I bisateRadha, DRYER AND WASHER MECHANIC * Safety Interventions Question Answer Entry Date Author Safety Precautions/Falls Reduction family at bedside 12/17/2024 10:23 AM Mirtha Logan RN All Alarms none present 12/17/2024 10:23 AM Mirtha Logan RN * Goal: Anesthesia/Sedation Recovery Question Answer Entry Date Author Outcome Anesthesia/Sedation Recovery met 12/18/2024 11:50 AM Rodney Bain RN * General Emergency Care CPG Interventions Question Answer Entry Date Author Coping Interventions safe, supportive environment facilitated;family presence facilitated 12/17/2024 10:23 AM Mirtha Logan RN General Care Management calm environment promoted;positioned for comfort 12/17/2024 10:23 AM Mirtha Logan RN * Goal: Optimal Comfort and Wellbeing Question Answer Entry Date Author Outcome Optimal Comfort and Wellbeing met 12/18/2024 11:50 AM Rodney Bain , RN * Goal: Minimized Risk/Safety Maintenance Question Answer Entry Date Author Outcome Minimized Risk and Safety met 11:50 AM Rodney Bain, DEMETRIA * Goal: Physiologic Homeostasis Question Answer Entry Date Author Outcome Physiologic Homeostasis met 11:50 AM EST Rodney Vázquez RN * Acuity/Destination Question Answer Entry Date Author Patient Acuity 3 12/17/2024 9:10 AM EST Barbara Ibrahim RN Triage Complete Triage complete 12/17/2024 9:22 AM EST Hien Meade RN ED Destination PIT 12/17/2024 9:22 AM EST Hien Russ RN * Weight Change 24 hrs Answer Entry Date Author 0 12/18/2024 9:38 AM EST Clementine Robins * HLM Score Question Answer Entry Date Author [facility] Daily Mobility Goal 7 12/18/2024 7:3 7 AM EST Patricia Garcia [facility] Score 6 12/18/2024 7: 37 AM EST Patricia Garcia RN * Plan of Care Reviewed With Answer Entry Date Author patient 12/20/2024 1:17 PM EST Radha Da Silva LPN * Pressure Injury Prevention (PIP) Interventions Question Answer Entry Date Author Pressure Reducing Devices Pillow 12/20/2024 8:00 AM EST Radha Da Silva LPN Bed Type Acute Care Bed 12/20/2024 8:00 AM EST Radha Montez LPN * Vital Signs Question Answer Entry Date Author BP 126/70 12/20/2024 11:15 AM EST Lennox Pineda Flowsheet In Temp 98.2 12/20/2024 11:15 AM EST Lennox Pineda Flowsheet In Pulse 68 12/20/2024 11:15 AM EST Lennox Pineda Flowsheet In Heart Rate Source Monitor 12/20/2024 5:04 AM Ana María Villavicencio RN BP Location Right arm 12/20/2024 5:04 AM Ana María Noe RN BP Method Automatic 12/20/2024 5:04 AM Ana María Noe RN MAP (mmHg) 89 12/20/2024 11:15 AM Lennox Pham Flowsheet In Patient Position Lying 12/20/2024 5:04 AM EST Ana María Savage RN * Oxygen Therapy Question Answer Entry Date Author SpO2 99 12/20/2024 11:15 AM GISELE Interface, Doc Flowsheet In Pulse Oximetry Type Intermittent 12/20/2024 7 :13 AM Ana María Villavicencio, DEMETRIA Patient Activity During SpO2 Measurement At rest 12/20/2024 7:13 AM Ana María Villavicencio RN Oxygen Therapy None 12/20/2024 5:04 AM Ana María Villavicencio, DEMETRIA * Patient Observation Question Answer Entry Date Author Patient Observations all belongings with patient, no family present 12/17/2024 4:17 PM Azael Perez RN * Neurological Question Answer Entry Date Author L Pupil Reaction Brisk 12/19/2024 4:00 AM Janiya De La Cruz RN L Pupil Size (mm) 3 12/17/2024 12:00 PM Azael Perez RN R Pupil Reaction Brisk 12/19/2024 4:00 AM Janiya De La Cruz RN R Pupil Size (mm) 3 12/17/2024 12:00 PM Azael Perez RN Neuro ([facility]) WD 12/19/2024 4:00 AM EST Janiya Aguilar RN R Pupil Shape Round 12/19/2024 4:00 AM EST Janiya Davison RN L Pupil Shape Round 12/19/2024 4:00 AM Janiya Delgadillo RN * Cardiac Question Answer Entry Date Author Cardiac ([facility]) WD 12/19/2024 4:00 AM Janiya Delgadillo RN * Gastrointestinal Question Answer Entry Date Author Most Recent BM Date [id number] 12/20/2024 4:09 AM Ana María Wright, DEMETRIA Gastrointestinal ([facility]) WD 12/20/2024 8:00 AM EST Radha Da Silva LPN GI Symptoms None 12/19/2024 4:00 PM EST Yi Larsen RN Relieved by Antiemetic 12/17/2024 10:11 PM Rola Vallecillo RN * Peripheral Vascular Question Answer Entry Date Author Peripheral Vascular ([facility]) X 12/20/2024 8:00 AM EST Radha Da Silva LPN Generalized Edema +2 12/20/2024 8:0 0 AM EST Ibisate, Jans A, DRYER AND WASHER MECHANIC RUE Edema +2 12/20/2024 8:00 AM EST Ibisate, Jans A, DRYER AND WASHER MECHANIC RLE Edema +2 12/20/2024 8:00 AM EST Ibisate, Jans A, DRYER AND WASHER MECHANIC LUE Edema +2 12/20/2024 8:00 AM EST Ibisate, Jans A, DRYER AND WASHER MECHANIC LLE Edema +2 12/19/2024 4:00 PM Yi Jensen RN Capillary Refill Less than/equal to 2 seconds (All extremities) 12/20/2024 8:00 AM EST Ibisate, Jans A, DRYER AND WASHER MECHANIC Pulses L radial;R radial 12/20/2024 8:0 0 AM EST Ibisate, Jans A, DRYER AND WASHER MECHANIC Edema Generalized 12/20/2024 8:00 AM EST Ibisate, Jans A, DRYER AND WASHER MECHANIC * RUE Neurovascular Assessment Question Answer Entry Date Author R Radial Pulse +2 12/20/2024 8:00 AM EST Ibi sate, Jans A, DRYER AND WASHER MECHANIC * LUE Neurovascular Assessment Question Answer Entry Date Author L Radial Pulse +2 12/20/2024 8:00 AM EST Ibi sate, Jans A, DRYER AND WASHER MECHANIC * RLE Neurovascular Assessment Question Answer Entry Date Author R Posterior Tibial Pulse +2 12/19/2024 4:00 PM Yi Jensen RN R Pedal Pulse +2 12/20/2024 8:00 AM EST Ibi sate, Jans A, DRYER AND WASHER MECHANIC * LLE Neurovascular Assessment Question Answer Entry Date Author L Posterior Tibial Pulse +2 12/19/2024 4:00 PM Yi Jensen RN L Pedal Pulse +2 12/20/2024 8:00 AM EST Marie ate, Jans A, DRYER AND WASHER MECHANIC * Musculoskeletal Question Answer Entry Date Author Musculoskeletal (WDL) WDL 12/20/2024 8:00 AM EST Ibisate, Jans A, DRYER AND WASHER MECHANIC * Urine Assessment Question Answer Entry Date Author Urinary Incontinence No 12/20/2024 8:[address] Ibisate, Jans A, DRYER AND WASHER MECHANIC * Psychosocial Question Answer Entry Date Author Psychosocial (WDL) WDL 12/20/2024 8:00 AM EST Ibisate, Jans A, DRYER AND WASHER MECHANIC * Intake Question Answer Entry Date Author [address] 12/19/2024 5:00 PM EST Navin josse Yi, RN Saline Flush (mL) 10 12/18/2024 3:00 PM EST Patricia Garcia, DEMETRIA * Silva Fall Risk Question Answer Entry Date Author History of Falling, Immediat e or Within 3 Months 25 12/20/2024 8:00 AM EST Ibisate Jans A, DRYER AND WASHER MECHANIC Secondary Diagnosis 15 12/20/2024 8:00 AM ES T IbisateRadha A, DRYER AND WASHER MECHANIC Ambulatory Aid 15 12/20/2024 8:00 AM EST Ibi sateRadha A, DRYER AND WASHER MECHANIC Intravenous Therapy/Heparin Lock 0 12/21/19 25 8:00 AM EST Ibisate Jans A, DRYER AND WASHER MECHANIC Gait/Transferring 10 12/20/2024 8:00 AM EST Ibisate Jans A, DRYER AND WASHER MECHANIC Mental Status 0 12/20/2024 8:00 AM EST Marie ate, Radha A, DRYER AND WASHER MECHANIC Silva Fall Risk Score 65 12/20/2024 8:00 AM EST Ibisate Jans A, DRYER AND WASHER MECHANIC * Rosendo Scale Question Answer Entry Date Author Sensory Perceptions 4 12/20/2024 8:00 AM ES T Ibisate, Jans A, DRYER AND WASHER MECHANIC Moisture 4 12/20/2024 8:00 AM EST Ibisa te, Jans A, DRYER AND WASHER MECHANIC Activity 3 12/20/2024 8:00 AM EST Ibisa te, Jans A, DRYER AND WASHER MECHANIC Mobility 3 12/20/2024 8:00 AM EST Ibisa te, Jans A, DRYER AND WASHER MECHANIC Nutrition 3 12/20/2024 8:00 AM EST Ibisa te, Jans A, DRYER AND WASHER MECHANIC Friction and Shear 3 12/20/2024 8:00 AM EST Ibisate, Jans A, DRYER AND WASHER MECHANIC Rosendo Scale Score 20 12/20/2024 8:00 AM EST Ibisate, Jans A, DRYER AND WASHER MECHANIC * BSA (Calculated - sq m) Answer Entry Date Author 2.37 12/18/2024 9:38 AM EST Clementine Robins * BMI (Calculated) Answer Entry Date Author 30.56 12/18/2024 9:38 AM EST Clementine Robins * Cardiac Question Answer Entry Date Author Telemetry Strip Reviewed Yes, I have rev iewed and acknowledged. 12/17/2024 8:00 PM Rola Eller, peoplesoft administratorConsumer Insight Analyst On No 12/20/2024 8:00 AM EST Radha Da Silva LPN Telemetry Audible No 12/20/2024 8:0 0 AM EST MelodyteRadha A, DRYER AND WASHER MECHANIC Telemetry Alarms Set No 12/20/2024 8:00 AM EST Radha Da Silva A, DRYER AND WASHER MECHANIC Cardiac (WDL) WDL 12/20/2024 12:32 AM Ana María Villavicencio, DEMETRIA * Respiratory Question Answer Entry Date Author Bilateral Breath Sounds Clear 12/20/2024 8:00 A M EST Radha Da Silva A, DRYER AND WASHER MECHANIC R Breath Sounds Clear 12/20/2024 8:00 AM EST Ib isateRadha A, DRYER AND WASHER MECHANIC L Breath Sounds Clear 12/20/2024 8:00 AM EST Ib isate Jans A, DRYER AND WASHER MECHANIC Respiratory (WDL) WDL 12/20/2024 8:00 AM EST Radha Da Silva A, DRYER AND WASHER MECHANIC * Vitals Question Answer Entry Date Author Height 74.016 12/18/2024 9:38 AM EST Clementine [place] Weight 3809.55 12/18/2024 9:38 AM EST Clementine [place] Height Method Stated 12/18/2024 9:38 AM EST lCementine Aceves * Propofol Drip Question Answer Entry Date Author Volume (mL) Propofol 110 12/19/2024 12:57 PM Yi Jensen, DEMETRIA * Patient Information Question Answer Entry Date Author Primary Caregiver Self 12/18/2024 2:4 5 PM Sadia Grissom RN Accompanied by/Relationship , Mom 07/2024 2:45 PM Sadia Grissom, RN Support System Immediate family 12/18/2024 2:45 PM Sadia Grissom, RN Patient's Education Level College 2024 2:45 PM Sadia Grissom, RN * Activities of Daily Living Question Answer Entry Date Author Equipment Currently Used at Home none 12/18/2024 2:45 PM Sadia Grissom, RN Functional Status Independent 12/18/2024 2:4 5 PM Sadia Grissom RN Living Arrangements Spouse/Significant other;Children 12/18/2024 2:45 PM Sadia Grissom RN Type of Residence Single Level 12/18/2024 2:4 5 PM Sadia Grissom RN * Advance Directives (For Healthcare) Question Answer Entry Date Author Advance Directive Patient would not li ke information 12/18/2024 6:03 PM Estee Hernandez RN Pre-existing DNR/DNI Order No 12/18/2024 6:03 PM Estee Hernandez RN Information Provided on Healthcare Directives No 12/18/2024 6:03 PM Estee Hernandez RN Patient Requests Assistance No 12/18/2024 6:03 PM Estee Hernandez RN Have you reviewed your Advance Directive and is it valid for this stay? No 12/18/2024 6:03 PM Estee Hernandez RN * Nutrition Screen Question Answer Entry Date Author Difficulty Chewing or Swallowing No 12/19/19 6:05 PM Estee Hernandez RN Burn, Pressure Injury, or Non-Healing Wound No 12/18/2024 6:05 PM Estee Hernandez RN Home Tube Feeding or Total Parenteral Nutrition (TPN) No 12/18/2024 6:05 PM Aminata Hernandez cca, RN Food allergy, Hinduism, or Cultural nutrition needs No 12/18/2024 6:05 PM Park Hernandez RN * Trauma/Abuse Assessment Question Answer Entry Date Author Physical Abuse Denies 12/18/2024 6:03 PM Estee Medina RN Verbal Abuse Denies 12/18/2024 6:03 PM Estee Hernandez RN * Values/Beliefs Question Answer Entry Date Author Cultural Requests During Hospitalization none 12/18/2024 6:03 PM Estee Hernandez RN Spiritual Requests During Hospitalization none 12/18/2024 6:03 PM Estee Hernandez RN Unable to assess No 12/18/2024 6:03 PM Estee Oropeza RN * Genitourinary Question Answer Entry Date Author Genitourinary (WDL) WDL 12/20/2024 8:00 AM ES T Radha Da Silva LPN * Neurological Question Answer Entry Date Author Level of Consciousness Alert 8:00 AM Radha Block LPN Orientation Level Oriented X4 12/20/2024 8:0 0 AM EST Radha Da Silva LPN Cognition Appropriate judgement;Appropriate safety awareness;Appropriate attention/concentration;Ap propriate for developmental age;Follows commands 12/20/2024 8:00 AM Radha Block LPN Speech Clear 12/20/2024 8:00 AM EST Radha Da Silva LPN Neuro (WDL) WDL 12/20/2024 8:00 AM Radha Block LPN Swallow Able to swallow toño ds and liquids without difficulty 12/20/2024 8:00 AM Radha Block LPN Pupil Assessment Yes 12/17/2024 8:00 PM EST Rola Huff RN * Height and Weight Question Answer Entry Date Author Weight Method Stated 12/17/2024 9:09 AM EST Barbara Conte RN * Safe Environment Question Answer Entry Date Author 37-Pin Connection [Bed and Wall] Yes 12/20/2024 8:00 AM Radha Block LPN Arm Bands On ID 12/20/2024 8:00 AM Radha Block LPN Side Rails/Bed Safety 2/2 12/20/2024 8:00 AM Radha Block LPN NonSkid Footwear Patient in bed 12/20/2024 8:00 AM Radha Block LPN The Patient's Environment is Safe Yes 12/20/2024 8:00 AM EST Radha Da Silva LPN Head of Bed Angle 30 12/20/2024 8:0 0 AM Radha Block LPN Bed Foot Left Rail Up State No 09/2024 8:00 AM Radha Block LPN Bed Head Right Rail Up State Yes 09/2024 8:00 AM Radha Block LPN Bed Head Left Rail Up State Yes 09/2024 8:00 AM Radha Block LPN Bed Foot Right Rail Up State No 09/2024 8:00 AM Radha Block LPN Bed Exit System Activate Status No 12/20/2024 8:00 AM Radha Block LPN Bed Brake State Yes 12/20/2024 8:00 AM Radha Block LPN Bed Low Height State Yes 12/20/2024 8:00 AM Radha Block LPN Chair Exit System Activate Status No 12/20/2024 8:00 AM Radha Block LPN * Fall Risk Interventions Question Answer Entry Date Author Safety Promotion/Fall Prevention activity supervised;assistive device/personal items within reach;clutter-free environment maintained;fall prevention program maintained;lighting adjusted;nonskid shoes/slippers when out of bed;room organization consistent;safety round/check completed 12/20/2024 8:00 AM Radha Block LPN Enhanced Safety Measures room near unit station 12/20/2024 8:00 AM Radha Block LPN Toilet Every 2 Hours-In Advance of Need Yes 12/20/2024 8:00 AM Radha Block LPN Hourly Visual Checks In bed;Quiet 12/20/2024 8:00 AM Radha Block LPN Room Door Open Deferred to decrease stimulation;Deferred to promote rest 12/20/2024 8:00 AM Radha Block LPN Gait Belt Used For Transfers Not applicable 12/20/2024 8:00 AM Radha Block LPN Fall Bundle Components Call light within reach;Personal belongings within reach;Overbed table within reach;Bed in lowest position;Bed wheels locked;Non-skid footwear on if up in chair or ambulating;Staff to remain with patient during toileting 12/20/2024 8:00 AM Radha Block LPN * Mobility Question Answer Entry Date Author Range of Motion active ROM (range of motion) encouraged 12/20/2024 8:00 AM Radha Block LPN Activity Management activity adjusted pe r tolerance 12/20/2024 8:00 AM EST Ibisate, Jans A, DRYER AND WASHER MECHANIC Activity Assistance Provided assistance, stand-by 12/20/2024 8:00 AM Radha Block LPN Head of Bed (HOB) Positioning HOB elevated 12/20/2024 8:00 AM Radha Block LPN Distance Ambulated (ft) 60 12/19/19 8:00 AM Patricia Johns RN Ambulation Response Tolerated fairly well 2024 8:00 AM Patricia Johns RN Repositioned Turns self 12/20/2024 8:00 AM Radha Block LPN Head of Bed Elevated HOB 45 12/20/2024 8:00 AM Radha Block LPN Heels/Feet Heels elevated off bed;Foot of bed elevated 12/20/2024 8:00 AM Radha Block LPN Reason for Removing Anti-Embolism Device Ambulating 12/20/2024 8:00 AM Radha Block LPN Positioning Frequency Able to turn self 12/21/19 8:00 AM Radha Block LPN * Hygiene Question Answer Entry Date Author Oral Care mouth moisturizer 12/20/2024 8:00 AM Radha Block LPN Oral Care (Yes/No) Yes 12/20/2024 8:00 AM Radha Block LPN * Precautions Question Answer Entry Date Author Isolation Precautions precautions maintained 09/2024 8:00 AM Radha Block LPN Precautions Environmental surveillance;Fall risk 12/20/2024 8:00 AM Radha Block LPN * Comfort and Environment Interventions Question Answer Entry Date Author Comfort Repositioned 12/20/2024 8:00 AM Radha Rawls LPN * Safety Equipment at Bedside Question Answer Entry Date Author Standard Bedside Safety Ambu bags in hallway 09/2024 8:00 AM Radha Block LPN Additional Bedside Safety Bed in locked and low position;Clutter free environment 12/20/2024 8:00 AM Radha Block LPN * IBW/kg (Calculated) Male Answer Entry Date Author 82.24 12/18/2024 9:38 AM Clementine Echavarria * IBW/kg (Calculated) Female Answer Entry Date Author 77.74 12/18/2024 9:38 AM Clementine Echavarria * Consults Question Answer Entry Date Author Integrative Medicine Consult Needed No 12/18 6:03 PM Estee Hernandez RN Pastoral Care Consult Needed No 12/18/2024 6 :03 PM Estee Hernandez, antisqueak chalker Consult Needed No 12/18/2024 6:03 PM Estee Hernandez RN * Therapy Consults Question Answer Entry Date Author PT Evaluation Needed 1 12/18/2024 6:03 PM Estee Cerna RN OT Evaluation Needed 1 12/18/2024 6:03 PM Estee Ceran RN METER READER Evaluation Needed 2 12/18/2024 6:03 PM Estee Hernandez RN * Assistive Devices Question Answer Entry Date Author Assistive Devices None 12/18/2024 6:03 PM Estee Hernandez RN * NPO/Void Status Question Answer Entry Date Author Time of Last Liquid 75553 12/18/2024 9:36 AM Jin Bermudez RN Date of Last Liquid 93267 12/18/2024 9:36 AM Jin Bermudez RN Date of Last Solid 05282 12/18/2024 9:36 AM Jni Merchant RN Time of Last Solid 79199 12/18/2024 9:36 AM Jin Merchant RN * Provider Notification Question Answer Entry Date Author Provider Role Hospitalist 12/19/2024 4:00 PM Yi Fuller, RN Provider Name Martina BURGOS 12/19/2024 4:00 PM Yi Fuller, RN Method of Communication Secure message 12/19/2024 4:00 PM Yi Jensen, DEMETRIA Reason for Communication Evaluate 12/19/2024 4:00 PM Yi Jensen, RN Response See orders 12/19/2024 4:00 PM Yi Combs, RN * End of Shift Review Question Answer Entry Date Author Shift Review Complete Yes 12/18/2024 8:00 PM Janiya Bergeron RN Shift Report Received From Fina Garcia RN 12/18/2024 8:00 PM Janiya Bergeron RN Shift Report Given To Fina David RN 12/18/2024 8:00 PM Janiya Bergeron RN * Hourly Rounding Question Answer Entry Date Author Hourly Rounding Complete Per Guideline Yes 12/20/2024 8:00 AM Radha Block LPN * Patient Violence Risk Assessment Question Answer Entry Date Author History of Violence: In the past 12 hours has the PATIENT exhibited any of the following? None 12/20/2024 8:00 AM Radha Block LPN Potential for Violence: In the past 12 hours has the PATIENT exhibited any of the following? None 12/20/2024 8:00 AM Radha Block LPN Risk No identified risk 12/20/2024 8: 00 AM Radha Block LPN History of Violence: In the past 12 hours has a PARTNER IN CARE of the patient exhibited any of the following? None 12/20/2024 8:00 AM Radha Block LPN * Spiritual Assessment Question Answer Entry Date Author Support Systems/ Spiritual Resources Felisa;Family;Prayer 12/17/2024 3:30 PM Jarrod Peña Spiritual Needs Emotional support;Prayer;Spiritual support 12/17/2024 3:30 PM Jarrod Peña Spiritual Issues Chronic pain/ illness 3:30 PM Jarrod Peña * Interventions Question Answer Entry Date Author Interventions Provided Emotional support;Prayer;Identify shinto/ spiritual coping;Spiritual support;Supportive Listening 12/17/2024 3:30 PM Jarrod Peña * Outcomes Question Answer Entry Date Author Patient Outcomes Anxiety;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 Patient spoke about his health and hospitalization. Patient is support by family, spouse. Patient share about his felisa and appreciates prayer. Senior Office Assistant provided a supportive presence, empathic listening, and a prayer per patient's request. Pastoral care will continue to be available as needed. 12/17/2024 3:30 PM Jarrod Peña Last Date of Pastoral Care Contact [id number] 12/17/2024 3:30 PM Jarrod Peña * Mobility Question Answer Entry Date Author Ambulation Stand by 12/20/2024 8:00 AM EST Melody boston, Radha A, DRYER AND WASHER MECHANIC * Airway Question Answer Entry Date Author Airway ([facility]) [facility] 12/17/2024 10:21 AM EST Mirtha Gamez RN * Breathing Question Answer Entry Date Author Breathing ([facility]) [facility] 12/17/2024 10:21 AM EST Mirtha Velasco RN * Circulation Question Answer Entry Date Author Circulation ([facility]) X 12/17/2024 10:21 AM Mirtha Logan RN * Disability Question Answer Entry Date Author Disability ([facility]) [facility] 12/17/2024 10:21 AM Mirtha Logan RN * Restart Vitals Timer Answer Entry Date Author Yes 12/20/2024 7:13 AM Ana María Villavicencio RN * Neurological Question Answer Entry Date Author Neuro ([facility]) [facility] 12/18/2024 11:47 AM EST Rodney Vance RN * Cardiac Question Answer Entry Date Author Cardiac ([facility]) [facility] 12/18/2024 11:47 AM Rodney Nowak, DEMETRIA * IBW/kg (Calculated) Answer Entry Date Author 82.24 12/18/2024 9:38 AM EST Clementine Robins * STOP-Bang Questionnaire Question Answer Entry Date Author Do you snore loudly? 0 12/18/2024 6:03 PM Estee Cerna RN Do you often feel tired or fatigued after your sleep? 0 12/18/2024 6:03 PM Aminata Hernandez cca RN Has anyone ever observed you stop breathing in your sleep? 0 12/18/2024 6:03 PM Aida Hernandez RN Do you have or are you being treated for high blood pressure? 0 12/18/2024 6:03 PM Estee Hernandez RN Is BMI greater than 35 kg/m2? 0=No 12/18/2024 6:03 PM Estee Hernandez RN Age older than 50 years old? 0=No 12/18/2024 6 :03 PM Estee Hernandez RN Is your neck circumference g reater than 17 inches (Male) or 16 inches (Female)? 0 12/18/2024 6:03 PM Estee Hernandez RN Gender - Male 1=Yes 12/18/2024 6:03 PM Estee Hernandez RN STOP-Bang Total Score 1 12/18/2024 6:03 PM Estee Hernandez RN Recent BMI (Calculated) 30.6 12/18/2024 6:03 P M Estee Hernandez RN * HARK Concern Calculation Answer Entry Date Author 1 12/18/2024 2:46 PM Sadia Grissom RN * Food Insecurity Concern Calculation Answer Entry Date Author 1 12/18/2024 2:46 PM Sadia Grissom RN * Transportation Needs Concern Calculation Answer Entry Date Author 1 12/18/2024 2:46 PM Sadia Grissom, DEMETRIA * Housing Stability Concern Calculation Answer Entry Date Author 0 12/18/2024 2:46 PM Sadia Grissom RN * Utilities Concern Calculation Answer Entry Date Author 1 12/18/2024 2:46 PM Sadia Grissom, DEMETRIA * Calculated C-SSRS Risk Score (Lifetime/Recent) Answer Entry Date Author No Risk Indicated 12/19/2024 8:00 AM Yi Membreno, DEMETRIA * Regent Coma Scale Question Answer Entry Date Author Best Eye Response Spontaneous 12/20/2024 8:00 AM Radha Block LPN Best Verbal Response Oriented 12/20/2024 8:00 AM Radha Rivera LPN Best Motor Response Follows commands 12/20/2024 8:00 A M Radha Block LPN Juanpablo Coma Scale Score 15 12/20/2024 8:00 AM Radha Block LPN * Departure Condition Question Answer Entry Date Author Mobility at Departure Stretcher 12/17/2024 4:17 PM Azael Perez RN * Restart Pain Assessment Timer Answer Entry Date Author Yes 12/20/2024 8:00 AM Radha Block LPN * KAVON 1 Fall Risk Factor Assessment Question Answer Entry Date Author Presented to ED because of fall 0 12/17/2024 10:21 AM Mirtha Logan RN Age > 70 0 12/17/2024 10:21 AM Mirtha Logan RN Intoxicated with alcohol or substance confusion 0 12/17/2024 10:21 AM Mirtha Logan RN Ambulates or transfers with assistive devices or assist 0 12/17/2024 10:21 AM Mirtha Logan RN Unable to ambulate or transfer 0 12/17/2024 10:21 AM Mirtha Logan RN Nursing judgement 1 12/17/2024 10: 21 AM Mirtha Logan RN KINDER 1 Fall Risk Score 1 025 10:21 AM Mirtha Logan RN High Fall Risk Interventions for Scores 1 and above Non-skid socks on patient as appropriate;Bed in lowest position and locked;Call light within reach;Belongings within reach;Patient refused bundle components (comment details).;Following general safety rules;Supervising/neil ting with ADL's and mobility;Patient/family told to always call for assistance;Patient/fami ly educated on additional fall prevention tips 12/17/2024 10:21 AM Mirtha Logan RN * [place] Suicide Severity Rating Scale Question Answer Entry Date Author Is patient awake, alert, and able to answer questions appropriately? Yes 12/17/2024 10:21 AM Maria Del Carmen Logan RN * Patient Belongings Placed in Locker Question Answer Entry Date Author Clothing Pants;Shirt;Footwear ;S ocks 12/17/2024 10:24 AM Mirtha Logan RN Belongings at Bedside Clothing;Electroni c devices 12/17/2024 10:24 AM Mirtha Logan RN * AUTOMOTIVE COLLISION REPAIR INSTRUCTOR Information Question Answer Entry Date Author Mode of Arrival Wheelchair 12/17/2024 9:07 AM Barbara Abbott, RN * Peripheral Vascular Question Answer Entry Date Author Peripheral Vascular (WDL) X 12/17/2024 10:2 4 AM Mirtha Logan RN * Quick Updates Question Answer Entry Date Author Quick Updates - Free Text report attempted no answer from nurses station 12/17/2024 4:10 PM Azael Perez RN * Weight in (lb) to have BMI = 25 Answer Entry Date Author 194.4 12/18/2024 9:38 AM EST Philizair e Hyacinthe, Micale * BMI (Calculated) Answer Entry Date Author 30.6 12/18/2024 9:38 AM EST Philizair e Hyacinthe, Micale * Percent Excess Weight Loss Answer Entry Date Author 0 12/18/2024 9:38 AM EST Philizair e Hyacinthe, Micale * Weight Change Since Preop Answer Entry Date Author 108 12/18/2024 9:38 AM EST Philizair e Hyacinthe, Micale * Initial Excess Weight Answer Entry Date Author -86.23 12/18/2024 9:38 AM EST Philizair e Hyacinthe, Micale * IBW in kg (Bariatric) Answer Entry Date Author 86.23 12/18/2024 9:38 AM EST Philizair e Hyacinthe, Micale * IBW in lb (Bariatric) Answer Entry Date Author 190.1 12/18/2024 9:38 AM EST Philizair e Hyacinthe, Micale * Weight Change Since Last Visit Answer Entry Date Author 0 12/18/2024 9:38 AM EST Philizair e Hyacinthe, Micale * Percent of IBW Answer Entry Date Author 125.25 12/18/2024 9:38 AM EST Philizair e Hyacinthe, Micale * EBW (kg) Answer Entry Date Author 21.75 12/18/2024 9:38 AM EST Philizair e Hyacinthe, Micale * EBW (lb) Answer Entry Date Author 48 12/18/2024 9:38 AM EST Philizair e Hyacinthe, Micale * Difference in Weight Since Last Visit Answer Entry Date Author 0 12/18/2024 9:38 AM EST Philizair e Hyacinthe, Micale * Housing Circumstances-Z Codes Question Answer Entry Date Author Housing Circumstances (select all that apply) None Applicable 12/18/2024 2:45 PM Sadia Grissom RN * Vitals Question Answer Entry Date Author Temp src Oral 12/20/2024 7:13 AM Ana María Noe, DEMETRIA Resp 17 12/20/2024 7:13 AM Ana María Noe RN * Anthropometrics Question Answer Entry Date Author Weight Change 0 12/18/2024 9:38 AM EST Clementine Aceves * Temp (in Celsius) for [place] IN [place] IV Answer Entry Date Author 36.8 12/20/2024 11:15 AM GISELE Interfwen e, Doc Flowsheet In * Pain Assessment Question Answer Entry Date Author Pain Location Abdomen 12/18/2024 7:37 AM Patricia Johns RN Patient's Stated Pain Goal No pain 12/19/2024 8:51 PM Ana María Villavicencio RN Patient is asleep Yes, assume pain is decreased 12/20/2024 4:09 AM Ana María Villavicencio RN Pain Type Acute pain 12/18/2024 7:37 AM Patricia Johns RN Pain Score 0 12/20/2024 8:00 AM Radha Block LPN Pain Assessment 0-10 (Adult DVPRS/Pe ds 0-10) 12/20/2024 8:00 AM Radha Block LPN * Nutrition Question Answer Entry Date Author Diet Type Regular 12/20/2024 8:00 AM Radha Rawls LPN Feeding Able to feed self 12/20/2024 8:00 AM Radha Block LPN Appetite Fair 12/18/2024 8:00 PM Janiya Mata RN * IBW/kg (Calculated) Answer Entry Date Author 82.24 12/18/2024 9:38 AM EST Clementine Robins * Adult Low Range Vt 6mL/kg Answer Entry Date Author 493.44 12/18/2024 9:38 AM EST Clementine Robins * Adult Moderate Range Vt 8mL/kg Answer Entry Date Author 657.92 12/18/2024 9:38 AM EST Clementine Robins * Adult High Range Vt 10mL/kg Answer Entry Date Author 822.4 12/18/2024 9:38 AM EST Clementine Robins * Respiratory Interventions Question Answer Entry Date Author Respiratory Interventions Cough and deep breathing 12/20/2024 8:00 AM EST Radha Da Silva LPN * Cough and Deep Breathe Question Answer Entry Date Author Cough And Deep Breathing done independently per patient 12/20/2024 8:00 AM EST Radha Da Silva LPN * Patient Belongings Sent Home Question Answer Entry Date Author Patient Electronics Cell phone 12/17/2024 10:24 AM Mirtha Paez RN * Integumentary Question Answer Entry Date Author Skin Color Jaundice 12/20/2024 8:00 AM Radha Rawls LPN Skin Condition/Temp Warm;Dry 12/20/2024 8:00 AM Radha Connors LPN Skin Turgor Non-tenting 12/20/2024 8:00 AM EST Radha Oconnor LPN Skin Tone Medium 12/20/2024 8:00 AM EST Radha Oconnor LPN Integumentary (WDL) X 12/20/2024 8:00 AM Radha Connors LPN * Confusion Assessment Method (CAM) Question Answer Entry Date Author Acute Onset and Fluctuating Course (1A) No 12/20/2024 8:00 AM Radha Block LPN * Confusion Assessment Method-ICU (CAM-ICU/PCAM-ICU) Question Answer Entry Date Author Feature 1: Acute Onset or Fluctuating Course Negative 12/19/2024 4:00 AM EST Geraldine David RN * Feature 3: Altered Level of Consciousness Answer Entry Date Author Negative 12/20/2024 8:00 AM EST Radha Da Silva LPN * Overall CAM-ICU/PCAM-ICU Answer Entry Date Author Negative 12/19/2024 4:00 AM EST Janiya David RN * Sedation Scales Question Answer Entry Date Author Sedation Scale Used [place] Agitation Sedation Scale 12/20/2024 8:00 AM Radha Block LPN RASS 0 12/20/2024 8:00 AM Radha Block LPN * Urine Output/Assessment Question Answer Entry Date Author Unmeasured Urine Occurrence 1 12/19/2024 12 :00 PM Yi Jensen RN * Stool Output/Assessment Question Answer Entry Date Author Unmeasured Stool Occurrence (hourly total) 1 12/19/2024 5:00 PM EST Chris Recinos RN Stool Color [place] 12/19/2024 5:00 PM EST Yi Larsen RN Stool Amount Medium 12/19/2024 5:00 PM EST Yi Larsen RN Stool Appearance Loose 12/19/2024 5:00 PM EST Yi Banuelos RN Bowel Incontinence No 12/20/2024 8:00 AM Radha Block LPN [place] Stool Assessment Gravy 12/19/2024 5:00 PM Yi Jensen RN * Fall Risk Calculated Score Answer Entry Date Author Silva High 12/20/2024 8:00 AM Radha Block LPN * $ Administration Charge Answer Entry Date Author Unit complete 12/20/2024 7:13 AM Ana María Villavicencio RN * Patient Specific Goals Question Answer Entry Date Author Patient/Family-Specific Goals (Include Timeframe) Patient will be free from falls during the shift. 12/20/2024 8:00 AM Radha Block LPN Individualized Care Needs Ongoing 2024 8:00 AM Radha Block LPN Anxieties, Fears or Concerns None 09/2024 8:00 AM Radha Block LPN * Able to Complete Psychiatric Screening Question Answer Entry Date Author Were you able to complete al l the behavioral health screenings? Yes 12/18/2024 6:03 PM Merry Hernandez RN * Delirium Assessment Question Answer Entry Date Author Delirium Prevention & Management Yes 12/20/2024 8:00 AM Radha Block LPN Delirium Prevention & Management: Early Mobility Ambulate to extent of patient's ability;Up to chair for meals;Out of room if possible;Educate patient and family about the benfits of early mobility in the hospital 12/20/2024 8:00 AM Radha Block LPN Delirium Prevention & Management: Cognitive Engagement Emotional support provided 12/20/2024 8:00 AM EST Radha Da Silva LPN Delirium Prevention & Management: Optimize Sleep/Wake Cycles Lighting decreased at night;Natural light during the day;Calming techniques provided 12/20/2024 8:00 AM EST Radha Da Silva LPN Delirium Scale Used Confusion Assessment Method 12/19/2024 8:51 PM Ana María Villavicencio RN * Deterioration Index Score Question Answer Entry Date Author Deterioration Index Score 18.74 12/20/2024 2:32 PM EST Brenden Baum * Discharge Medication Bedside Delivery Question Answer Entry Date Author Meds to Beds Complete? Yes 1:31 PM Chasidy Hurst PharmD Current Status Pickup Prescriptions [facility] pharmacy 12/20/2024 1:31 PM Chasidy Hurst, PharmD Is the patient interested in Medication Bedside Delivery at Discharge? Yes, interested 12/20/2024 1:04 PM Dima Mejia CPhT * Juanpablo Coma Scale Numeric Answer Entry Date Author 15 12/20/2024 8:00 AM EST Radha Da Silva LPN * Elevate heels task - custom formula Answer Entry Date Author 1 12/20/2024 8:00 AM Radha Block LPN * Vitals Timer Question Answer Entry Date Author Restart Vitals Timer Yes 12/20/2024 7:13 AM Ana María Jerez RN * Vitals Question Answer Entry Date Author Cardiac Rhythm NSR 12/18/2024 9:38 AM Jin Bazzi RN * Respiratory Assessment Question Answer Entry Date Author Respiratory (DAXA) WDL 12/18/2024 11:47 AM Rodney Bain, DEMETRIA * Integumentary Question Answer Entry Date Author Integumentary (DAXA) X 12/18/2024 11:47 AM Rodney Avila RN * Modified Mickey Question Answer Entry Date Author Activity 2 12/18/2024 11:47 AM Rodney Katz RN Respiration 2 12/18/2024 11:47 AM Rodney Katz RN Hemodynamic Stability 2 12/18/2024 11:47 AM Rodney Bain RN Consciousness 2 12/18/2024 11:47 AM Rodney Nowak RN Oxygen Saturation 2 12/18/2024 11:47 AM Rodney Bain RN Modified Mickey Score 14 12/18/2024 11:47 A M Rodney Bain RN Pain 2 12/18/2024 11:47 AM Rodney Katz RN Emetic Symptoms 2 12/18/2024 11:47 AM Rodney Catherine RN * Postprocedure Normothermia Interventions Question Answer Entry Date Author Brinnon Applied No 12/18/2024 11:27 AM Rodney Catherine RN Is the patient normothermic? Yes 12/18/2024 1 1:27 AM Rodney Bain RN * Hourly Rounding Question Answer Entry Date Author Activity Assistance Patient independent 12/18/19 11:15 AM Mirtha Logan RN Toileting Independent 12/17/2024 11:15 AM Mirtha Logan RN Call Light [facility] 12/17/2024 11:15 AM Mirtha Logan RN Rest/ Sleep No problem identified;Awake 12/17/2024 11:15 AM Mirtha Logan RN Rest/ Sleep Enhancement Care clustered t o minimize awakenings 12/17/2024 11:15 AM Mirtha Logan RN Completed Hourly Rounding Yes 12/17/2024 11:15 AM Mirtha Logan RN Plan of Care Reviewed With Patient 12/17/2024 11:15 AM Mirtha Logan RN * Elopement Risk Screen Question Answer Entry Date Author Does the patient exhibit any of the following behaviors? No 12/20/2024 8:00 AM West Block LPN Does the patient have a cour t ordered legal guardian? No 12/20/2024 8:00 AM Radha Block LPN * C-SSRS (Frequent Screener) Question Answer Entry Date Author Is patient awake, alert, and able/willing to answer questions appropriately? Yes 12/20/2024 8:00 AM EST Ibisate, Jans A, DRYER AND WASHER MECHANIC 1. Wish to be (Past 1 Month) No 12/19/2024 8:00 AM Chris Jensen RN 2. Non-Specific Active Suici joceline Thoughts (Past 1 Month) No 12/19/2024 8:00 AM Pablito Jensen, DEMETRIA 6. Suicidal Behavior (Lifetime) No 8:00 AM Yi Jensen, DEMETRIA * [facility] 6-Clicks Mobility Assessment Question Answer Entry Date Author Difficulty patient has turni ng over in bed (including adjusting bedclothes, sheets, and blankets)? 3 12/18/2024 6:03 PM Estee Diamond RN Difficulty patient has sitti ng down on and standing up from a chair with arms (wheelchair, bedside commode, etc.)? 3 12/18/2024 6:03 PM Estee Hernandez RN Difficulty patient has movin g from lying on back to sitting on the side of the bed? 3 12/18/2024 6:03 PM Estee Hernandez RN How much help does the patie nt need moving to and from a bed to a chair (including a wheelchair)? 3 12/18/2024 6:03 PM Aida Hernandez RN How much help does the patie nt need to walk in hospital room? 3 12/18/2024 6:03 PM Aida Hernandez RN How much help does the patie nt need climbing 3-5 steps with a railing? 3 12/18/2024 6:03 PM Estee Diamond RN [facility] 6-Clicks Mobility Asse ssment Total 18 12/18/2024 6:03 PM Estee Hernandez RN documented in this encounter Medications at Time of Discharge buPROPion SR (Wellbutrin SR) 150 MG 12 hr tabletIndications:To bacco use disorder Take 1 tablet by mouth daily for 3 days, THEN 1 tablet 2 times a day. Do not crush, chew, or split. 123 tablet 1 11/21/2024 carvedilol (Coreg) 6.25 MG tablet Take 1 tablet by mouth 2 times a day. 60 tablet 3 11/26/2024 5 ciprofloxacin (Cipro) 500 MG tabletIndications:Sp ontaneous bacterial peritonitis Take 1 tablet by mouth daily. 30 tablet 2 11/21/2024 5 escitalopram (Lexapro) 10 MG tablet Take 0.5 tablets by mouth daily. 15 tablet 3 11/26/2024 5 ferrous sulfate 324 MG tablet delayed-release Take 1 tablet by mouth daily with breakfast. Do not crush, chew, or split. 30 tablet 12/21/2024 5 furosemide (Lasix) 20 MG tablet Take 1 tablet by mouth daily. 90 tablet 3 11/21/2024 5 lactulose (Chronulac) 10 GM/15ML solution Take 15 mL by mouth 3 times a day. 1350 mL 3 11/26/2024 5 Multiple Vitamins-Minerals (Mens Multi Health Formula) tablet Take by mouth. nutrional drink glucose control (Boost Glucose Control) liquid liquid Take 237 mL by mouth 2 times a day. 87878 mL 3 12/03/2024 5 pantoprazole (Protonix) 40 MG EC tablet Take 1 tablet by mouth 2 times a day. Do not crush, chew, or split. 60 tablet 12/20/2024 5 rifAXIMin (Xifaxan) 550 MG tabletIndications:He patic encephalopathy (CMS/HCC) Take 1 tablet by mouth 2 times a day. 180 tablet 3 12/04/2024 5 spironolactone (Aldactone) 50 MG tablet Take 1 tablet by mouth daily. 30 each 3 11/26/2024 5 traZODone (Desyrel) 50 MG tabletIndications:In somnia, unspecified type Take 0.5 tablets by mouth nightly. 45 tablet 1 11/21/2024 5 documented as of this encounter Miscellaneous Notes * Care Plan - Radha Da Silva LPN - 12/20/2024 1:18 PM EST Problem: Adult Inpatient Plan of Care Goal: Plan of Care Review Outcome: Ongoing, Progressing Flowsheets (Taken 12/20/20241316) Progress: no change Outcome Evaluation: POC reviwed Plan of Care Reviewed With: patient Goal: Patient-Specific Goal (Individualized) Outcome: Ongoing, Progressing Flowsheets (Taken 12/20/2024799) Patient/Family-Specific Goals (Include Timeframe): Patient will be free from falls during the shift. Individualized Care Needs: Ongoing Anxieties, Fears or Concerns: None Goal: Absence of Hospital-Acquired Illness or Injury Outcome: Ongoing, Progressing Intervention: Identify and Manage Fall Risk Flowsheets (Taken 12/20/2024799) Safety Promotion/Fall Prevention: activity supervised assistive device/personal items within reach clutter-free environment maintained fall prevention program maintained lighting adjusted nonskid shoes/slippers when out of bed room organization consistent safety round/check completed Intervention: Prevent Skin Injury Flowsheets (Taken 12/20/20241316) Body Position: weight shifting Skin Protection: drying agents applied Intervention: Prevent and Manage VTE (Venous Thromboembolism) Risk Flowsheets (Taken 12/20/20241316) VTE Prevention/Management: SCDs (sequential compression devices) off Intervention: Prevent Infection Flowsheets (Taken 12/20/20241316) Infection Prevention: hand hygiene promoted Goal: Optimal Comfort and Wellbeing Outcome: Ongoing, Progressing Intervention: Monitor Pain and Promote Comfort Flowsheets (Taken 12/20/20241316) Pain Management Interventions: medication (see MAR) Intervention: Provide Person-Centered Care Flowsheets (Taken 12/20/20241316) Trust Relationship/Rapport: care explained Problem: Fall Injury Risk Goal: Absence of Fall and Fall-Related Injury Outcome: Ongoing, Progressing Intervention: Identify and Manage Contributors Flowsheets (Taken 12/20/20241316) Medication Review/Management: medications reviewed Self-Care Promotion: independence encouraged Intervention: Promote Injury-Free Environment Flowsheets (Taken 12/20/2024799) Safety Promotion/Fall Prevention: activity supervised assistive device/personal items within reach clutter-free environment maintained fall prevention program maintained lighting adjusted nonskid shoes/slippers when out of bed room organization consistent safety round/check completed * Addendum Note - Bimal Cartwright - 12/20/2024 2:30 AM Mehul addended by: Bimal Cartwright on: 12/31/2024 2:23 PM Actions taken: Utilization Review saved, Utilization Review data saved * Addendum Note - Danette Perez RN - 12/20/2024 2:30 AM Mehul addended by: Danette Perez RN on: 02/02/2025 7:21 PM Actions taken: Utilization Review saved, Utilization Review data saved * Discharge Summary - Farheen Dang MD - 12/20/2024 2:30 AM EST Hospitalization Admit Date/Time: 12/17/2024 9:32 AM Admitting Attending: Leroy Aponte Discharge Date: 12/20/24 Discharge Attending Physician: Leroy Aponte MD PCP name and Address: Pcp, [place] [address] Referring provider name and address: Prieto Dillon MD [address] [place] [address] Chief Concern, Brief History of Present Illness, and Hospital Course Brief summary: Orly White is a 44 y.o. male with PMH of cirrhosis secondary to alcohol use (decompensated with ascites, HE, SBP), depression, anxiety, GERD, HTN, TUD who presents due to hemoglobin of 6.3 identified during transplant clinic appointment this morning. It appears that anemia has been chronic with multiple blood transfusions over the past few months and he has no symptoms ofacute GI bleed such as melena, hematochezia, hemoptysis, abdominal pain or changes in bowel movements. He is hemodynamically stable. Therefore, low concern for large volume variceal bleed and suspecta slower, chronic etiology of blood loss such as GAVE or PUD. Given persistence of anemia and risk for bleeding iso decompensated cirrhosis, will admit for inpatient endoscopy. Problem: #GAVE s/p EGD #Acute on Chronic Anemia Investigation: - Hgb 6.3 OA. 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 Suspected source of anemia - Unable to complete colonoscopy due to inadequate bowel prep; outpatient colonoscopy scheduled forJan2025 - Stable Hb throughout admission, average 7-8 - Hb 6.9 on 12/20. Transfused 1u pRBCs. Repeat H&H 8.0 at time of discharge End Result: - AOC anemia likely 2/2 GAVE, treated with APC. Required two transfusions throughout hospital stay. - Will place CBC lab order to be completed on Friday 12/22. Patient will reach out to schedule FU with PCP or Transplant for next week appt to discuss and manage results. - Per GI recs: Will arrange for OP colonoscopy. Start Protonix 40mg BID indefinitely and Iron suppl. Continue home Coreg, Lasix, Spironolactone. Avoid NSAID due to risk of GI bleeding. Up to 2g of Tylenol. Problem: #Cirrhosis 2/2 EtOH Decompensated with Ascites, HE, SBP Investigation: - MELD 3.0 (12/17) 27 - MELD Na (12/17) 26, per transplant note; based on Cr 0.78, Na 139, Tbili 12.4, Albumin 2.8 INR ratio 2.4 - Bedside U/S unremarkable; paracentesis not indicated - Transplant following, not yet listed due to tobacco use. - Hep A immune. Due for dose 2 of Hep B vaccine series in 1 month - Screenings: CT abdomen 10/2024 w/ no suspicious liver lesions. AFP normal End Result: - Appropriately downtrending liver enzymes throughout stay and at time of discharge - Per Transplant recs: Continue home Lasix, spironolactone, rifaximin, lactulose, ciprofloxacin. Salt restricted diet - Continue to follow up with Transplant for further management. Reached out to team at time of discharge regarding scheduling follow up appointment for lab monitoring within 1 week Chronic Medical Conditions #GERD - Continue home Pantoprazole 40mg BID #TUD - Continue home wellbutrin 150mg BID #Anxiety, depression - Continue home lexapro 5mg daily #HTN - No home medications, BP controlled right now Consults: - GI - Transplant SGY Surgeries and Procedures EGD 12/18 Failed colonoscopy 12/18 2/2 inadequate bowel prep/insufficient equipment Medication List .. buPROPion SR 150 MG 12 hr tablet Commonly known as: Wellbutrin SR Take 1 tablet by mouth daily for 3 days, THEN 1 tablet 2 times a day. Do not crush, chew, or split. Start taking on: November 21, 2024 carvedilol 6.25 MG tablet Commonly known as: Coreg Take 1 tablet by mouth 2 times a day. ciprofloxacin 500 MG tablet Commonly known as: Cipro Take 1 tablet by mouth daily. escitalopram 10 MG tablet Commonly known as: Lexapro Take 0.5 tablets by mouth daily. ferrous sulfate 324 MG tablet delayed-release Take 1 tablet by mouth daily with breakfast. Do not crush, chew, or split. Start taking on: December 21, 2024 furosemide 20 MG tablet Commonly known as: Lasix Take 1 tablet by mouth daily. lactulose 10 GM/15ML solution Commonly known as: Chronulac Take 15 mL by mouth 3 times a day. Mens Multi Health Formula tablet Take by mouth. nutrional drink glucose control liquid liquid Take 237 mL by mouth 2 times a day. pantoprazole 40 MG EC tablet Commonly known as: Protonix Take 1 tablet by mouth 2 times a day. Do not crush, chew, or split. rifAXIMin 550 MG tablet Commonly known as: Xifaxan Take 1 tablet by mouth 2 times a day. spironolactone 50 MG tablet Commonly known as: Aldactone Take 1 tablet by mouth daily. traZODone 50 MG tablet Commonly known as: Desyrel Take 0.5 tablets by mouth nightly. Where to Get Your Medications These medications were sent to [facility] - [place], [place] - [address] [facility] [address] [employer] [facility]ENTER[facility] [employer] [facility] [id number] ferrous sulfate 324 MG tablet delayed-release pantoprazole 40 MG EC tablet Discharge Diagnosis Medical Problems Active and Resolved Hospital Problems Hospital * (Principal) Anemia Post Discharge Instructions Take all medications as prescribed. Keep track of your symptoms, and note any changes. Report any new or worsening symptoms to your healthcare provider. If you develop new onset fevers (101 or greater), difficulty breathing, chest pain, severe bleeding, sudden weakness or numbness, altered mental status, severe pain, or signs of infection (redness, swelling, warmth, drainage), contact your primary care doctor or return to your nearest emergency department. Outpatient Follow-Up Future Appointments Date Time Provider Department Center 03/06/2025 To Be Determined [facility] ENDO 2 ENDOGSHS [facility] Test Results Pending At Discharge None Pertinent Physical Exam At Time of Discharge Physical Exam Vitals reviewed. Constitutional: General: He is not in acute distress. Appearance: Normal appearance. HENT: Head: Normocephalic and atraumatic. Nose: Nose normal. Mouth/Throat: Mouth: Mucous membranes are moist. Eyes: General: Scleral icterus present. Extraocular Movements: Extraocular movements intact. Cardiovascular: Rate and Rhythm: Normal rate and regular rhythm. Pulmonary: Effort: Pulmonary effort is normal. No respiratory distress. Breath sounds: Normal breath sounds. Comments: On RA Abdominal: General: There is no distension. Palpations: Abdomen is soft. Tenderness: There is no abdominal tenderness. Musculoskeletal: General: Normal range of motion. Cervical back: Normal range of motion. Right lower leg: Edema present. Left lower leg: Edema present. Skin: General: Skin is warm and dry. Coloration: Skin is jaundiced. Neurological: General: No focal deficit present. Mental Status: He is alert and oriented to person, place, and time. Psychiatric: Mood and Affect: Mood normal. Discharge Disposition/Condition Disposition: Home Condition: Stable (s/sx potential problems absent or manageable) I spent >30 minutes of patient care and instruction time in preparation for this discharge. Farheen Dang MD Physical Medicine & Rehabilitation [facility] PGY-1 Pager: [phone] Cosigned by Leroy Aponte MD at 12/20/2024 3:33 PM EST Associated attestation - Leroy Aponte MD - 12/20/2024 3:33 PM EST I saw and evaluated the patient with the resident/fellow. I discussed the case with the resident/fellow and agree with the findings and plan as documented. No overt blood loss on day of discharge. Patient wished to discharge home w/ close outpatient lab work & clinic F/U (rather than remain admitted for further close Hgb monitoring). * Progress Notes - Farheen Dang MD - 12/19/2024 1:23 PM EST Images from the original note were not included. Hospital Medicine Progress Note Subjective Chief presenting concern: Orly White is a 44 y.o. male with PMH of cirrhosis secondary to alcohol use (decompensated with ascites, HE, SBP), depression, anxiety, GERD, HTN, TUD who presents due to hemoglobin of 6.3 identified during transplant clinic appointment. Sent to ED for transfusion and further work up. Subjective NAEON. Mr. White is tolerating liquids and solids this morning. He denies sore throat, bloating, abdominal pain, chest pain, dyspnea, fever, chills, nausea, vomiting, hematochezia, melena, and hemoptysis. His recent BM was last night. Objective Objective Last Recorded Vitals Blood pressure 128/64, pulse 73, temperature 36.7 ??C (98.1 ??F), resp. rate 18, height 1.88 m (6' 2.02 ), weight 108 kg (238 lb 1.6 oz), SpO2 98%. Physical Exam Vitals reviewed. Constitutional: General: He is not in acute distress. Appearance: Normal appearance. HENT: Head: Normocephalic and atraumatic. Nose: Nose normal. Mouth/Throat: Mouth: Mucous membranes are moist. Eyes: General: Scleral icterus present. Extraocular Movements: Extraocular movements intact. Cardiovascular: Rate and Rhythm: Normal rate and regular rhythm. Pulmonary: Effort: Pulmonary effort is normal. No respiratory distress. Breath sounds: Normal breath sounds. Comments: On RA Abdominal: General: There is no distension. Palpations: Abdomen is soft. Tenderness: There is no abdominal tenderness. Musculoskeletal: General: Normal range of motion. Cervical back: Normal range of motion. Right lower leg: Edema present. Left lower leg: Edema present. Skin: General: Skin is warm and dry. Coloration: Skin is jaundiced. Neurological: General: No focal deficit present. Mental Status: He is alert and oriented to person, place, and time. Psychiatric: Mood and Affect: Mood normal. Data Labs personally reviewed Recent Results (from the past 24 hours) Hemoglobin and Hematocrit, Blood Collection Time: 12/18/24 3:38 PM Result Value Ref Range HGB 8.0 (L) 13.7 - 17.5 g/dL HCT 25.5 (L) 40.0 - 51.0 % CBC and Differential Collection Time: 12/19/24 4:52 AM Result Value Ref Range WBC Count 3.47 (L) 3.70 - 10.30 10*3/uL RBC Count 2.32 (L) 4.60 - 6.10 10*6/uL HGB 7.3 (L) 13.7 - 17.5 g/dL HCT 23.3 (L) 40.0 - 51.0 % Platelet Count 71 (L) 155 - 369 10*3/uL MCV 100 (H) 79 - 98 fL MCH 31.5 26.0 - 32.0 pg MCHC 31.3 30.7 - 35.5 g/dL RDW 19.7 (H) 11.5 - 14.5 % MPV 10.0 8.8 - 12.5 fL nRBC 0.0 <=0.0 per 100 WBCs Differential Type Automated Neutrophils % 48 % Lymphocytes % 30 % Monocytes % 17 % Eosinophils % 3 % Basophils % 1 % Immature Granulocytes % 1 % Neutrophils Absolute 1.68 1.60 - 6.10 10*3/uL Lymphocytes Absolute 1.04 (L) 1.20 - 3.90 10*3/uL Monocytes Absolute 0.59 0.30 - 0.90 10*3/uL Eosinophils Absolute 0.11 0.00 - 0.50 10*3/uL Basophils Absolute 0.03 0.00 - 0.10 10*3/uL Immature Granulocytes Absolute 0.02 0.00 - 0.06 10*3/uL Comprehensive metabolic panel Collection Time: 12/19/24 4:52 AM Result Value Ref Range Glucose, Plasma 107 (H) 74 - 99 mg/dL BUN, Plasma 15 7 - 21 mg/dL Creatinine, Plasma 0.88 0.70 - 1.20 mg/dL BUN/Creatinine Ratio 17 Sodium, Plasma 135 (L) 136 - 145 mmol/L Potassium, Plasma 4.4 3.6 - 4.9 mmol/L Chloride, Plasma 107 97 - 107 mmol/L CO2, Plasma 22 22 - 29 mmol/L Anion Gap 6 6 - 16 mmol/L Total Calcium, Plasma 7.9 (L) 8.9 - 10.2 mg/dL Total Protein 5.3 (L) 6.3 - 7.9 g/dL Albumin, Plasma 2.6 (L) 3.5 - 5.2 g/dL AST, Plasma 62 (H) 10 - 50 U/L ALT, Plasma 30 10 - 50 U/L Alkaline Phosphatase, Plasma 122 (H) 40 - 115 U/L Total Bilirubin, Plasma 13.6 (H) 0.2 - 1.1 mg/dL eGFRcr 108.1 mL/min/1.73m*2 Magnesium Collection Time: 12/19/24 8:54 AM Result Value Ref Range Magnesium, Plasma 1.5 (L) 1.9 - 2.4 mg/dL Iron & Total Iron Binding Capacity, Plasma (Includes Transferrin) Collection Time: 12/19/24 8:54 AM Result Value Ref Range Iron, Plasma 38 (L) 50 - 170 ug/dL Transferrin, Plasma 184 (L) 200 - 360 mg/dL Total Iron Binding Capacity, Plasma 230 (L) 240 - 450 ug/mL Transferrin Saturation 17 14 - 50 % Lavender Top Collection Time: 12/19/24 9:26 AM Result Value Ref Range Extra Hold for add-ons Hemoglobin and Hematocrit, Blood Collection Time: 12/19/24 9:26 AM Result Value Ref Range HGB 7.0 (L) 13.7 - 17.5 g/dL HCT 22.3 (L) 40.0 - 51.0 % Vitamin B12 Collection Time: 12/19/24 11:50 AM Result Value Ref Range Vitamin B12, Serum 1,916 (H) 210 - 1,033 pg/mL Folate Collection Time: 12/19/24 11:50 AM Result Value Ref Range Folate, Serum 18.3 >4.6 ng/mL Ferritin Collection Time: 12/19/24 11:50 AM Result Value Ref Range Ferritin, Serum 42 20 - 400 ng/mL Imaging & Procedures EGD 12/18/2024 - The upper third of the esophagus and middle third of the esophagus appeared normal. - Single small grade I varix in the lower third of the esophagus. - Mild and diffuse portal hypertensive gastropathy in the cardia, fundus of the stomach and body ofthe stomach. 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 - The duodenal bulb, 1st part of the duodenum and 2nd part of the duodenum appeared normal. Assessment/Plan Principal Problem: Anemia Orly White is a 44 y.o. male with PMH of cirrhosis secondary to alcohol use (decompensated with ascites, HE, SBP), depression, anxiety, GERD, HTN, TUD who presents due to hemoglobin of 6.3 identified during transplant clinic appointment this morning.It appears that anemia has been chronicwith multiple blood transfusions over the past few months and he has no symptoms of acute GI bleed such as melena, hematochezia, hemoptysis, abdominal pain or changes in bowel movements. 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 This condition poses an acute threat to life/bodily function. 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 Suspected source of anemia - Unable to complete colonoscopy due to inadequate bowel prep; outpatient colonoscopy scheduled forJan2025 Plan - GI following - Continue home Coreg 6.25mg BID, d/t c/f varices - Order iron, ferritin, B12, folate levels - Recheck H&H this afternoon; discharge if stable or rising #Cirrhosis 2/2 EtOH Decompensated with Ascites, HE, SBP - MELD 3.0 (12/17) 27 - MELD Na (12/17) 26, per transplant note; based on Cr 0.78, Na 139, Tbili 12.4, Albumin 2.8 INR ratio 2.4 - Bedside U/S unremarkable; paracentesis not indicated - Transplant following, not yet listed due to tobacco use. - Hep A immune. Due for dose 2 of Hep B vaccine series in 1 month - Screenings: CT abdomen 10/2024 w/ no suspicious liver lesions. AFP normal Plan - For ascites, pedal edema: Home lasix 20mg daily, home spironolactone 50mg daily - For HE ppx: Home rifaximin 550mg BID, home lactulose 10g TID - For SBP ppx: Home ciprofloxacin 500mg daily - Continue salt restricted diet Chronic Medical Conditions #GERD - Pantoprazole 40mg BID #TUD - Home wellbutrin 150mg BID #Anxiety, depression - Home lexapro 5mg daily #HTN - No home medications, BP controlled right now Care today included: HIGHRISK: Discussion of management/test with another provider: SHIVA Pierre, MS3 I saw and evaluated the patient with the medical student, I discussed the case with the medical student and agree with the findings and plan as documented. I personally performed the Exam and MedicalDecision Making. Farheen Dang MD Physical Medicine & Rehabilitation [facility] PGY-1 Pager: [phone] Cosigned by Leroy Aponte MD at 12/19/2024 5:07 PM EST Associated attestation - Leroy Aponte MD - 12/19/2024 5:07 PM EST I saw and evaluated the patient with the resident/fellow. I discussed the case with the resident/fellow and agree with the findings and plan as documented. Afternoon Hgb = 7.0 Will keep admitted & recheck in AM for possible transfusion * Care Plan - Yi Recinos RN - 12/19/2024 11:39 AM EST Problem: Adult Inpatient Plan of Care Goal: Plan of Care Review Outcome: Ongoing, Progressing Flowsheets (Taken 12/19/20241137) Progress: improving Outcome Evaluation: Patient will remain free from falls this shift Plan of Care Reviewed With: patient Goal: Patient-Specific Goal (Individualized) Outcome: Ongoing, Progressing Flowsheets (Taken 12/19/2024 0800) Patient/Family-Specific Goals (Include Timeframe): pt will remain free from injury this shift Individualized Care Needs: safety Anxieties, Fears or Concerns: none Goal: Absence of Hospital-Acquired Illness or Injury Outcome: Ongoing, Progressing Intervention: Identify and Manage Fall Risk Flowsheets (Taken 12/19/20241137) Safety Promotion/Fall Prevention: activity supervised clutter-free environment maintained safety round/check completed Intervention: Prevent Skin Injury Flowsheets (Taken 12/19/20241137) Body Position: weight shifting Skin Protection: incontinence pads utilized Intervention: Prevent and Manage VTE (Venous Thromboembolism) Risk Flowsheets (Taken 12/19/20241137) VTE Prevention/Management: bilateral SCDs (sequential compression devices) off medication Intervention: Prevent Infection Flowsheets (Taken 12/19/20241137) Infection Prevention: cohorting utilized single patient room provided hand hygiene promoted Goal: Optimal Comfort and Wellbeing Outcome: Ongoing, Progressing Intervention: Monitor Pain and Promote Comfort Flowsheets (Taken 12/19/20241137) Pain Management Interventions: care clustered rest Intervention: Provide Person-Centered Care Flowsheets (Taken 12/19/20241137) Trust Relationship/Rapport: care explained choices provided Problem: Fall Injury Risk Goal: Absence of Fall and Fall-Related Injury Outcome: Ongoing, Progressing Intervention: Identify and Manage Contributors Flowsheets (Taken 12/19/20241137) Medication Review/Management: medications reviewed high-risk medications identified Self-Care Promotion: BADL personal objects within reach BADL personal routines maintained independence encouraged Intervention: Promote Injury-Free Environment Flowsheets (Taken 12/19/20241137) Safety Promotion/Fall Prevention: activity supervised clutter-free environment maintained safety round/check completed * Progress Notes - Luis Herrera MD - 12/19/2024 8:51 AM EST GASTROENTEROLOGY DAILY PROGRESS NOTE SUBJECTIVE Interval History No acute events overnight. Feeling well. Denies melena, hematochezia or hematemesis. Understands that he will need repeat colonoscopy as outpt. Review of Systems Negative except that which is mentioned in the HPI. OBJECTIVE Physical Exam Blood pressure (!) 141/66, pulse 80, temperature 36.9 ??C (98.5 ??F), temperature source Oral, resp. rate 18, height 1.88 m (6' 2.02 ), weight 108 kg (238 lb 1.6 oz), SpO2 97%. GEN: awake, alert, well appearing HEENT: atraumatic, nose patent EYES: EOMI, +scleral icterus CV: well perfused RESP: no increased WOB, symmetric chest rise GI: soft, non-tender, moderate distention, neg fluid wave MSK: moves limbs spontaneously NEURO: alert and orientated, neg asterixis SKIN: jaundice, warm PSYCH: appropriate mood and affect Intake / Output Intake/Output Summary (Last 24 hours) at 12/19/2024 0851 Last data filed at 12/18/2024 1500 Gross per 24 hour Intake 1000 ml Output -- Net 1000 ml Current Medications Current Scheduled Medications[1] Current Continuous Medications[2] Current PRN Medications[3] Results / Imaging Labs in last 18 hours CBC WBC 3.47 (L) Hb 7.3 (L) Plt 71 (L) Hct 23.3 (L) ANC 1.68 INR ??, PTT ??, Anti-Xa ?? BMP Na 135 (L) Cl 107 BUN 15 Glu 107 (H) K 4.4 Co2 22 Cr 0.88 Ca 7.9 (L) LFT AST 62 (H) AlkPhos 122 (H) T Prot 5.3 (L) ALK 30 Bili 13.6 (H) Alb ?? ASSESSMENT/PLAN Mr. White is a 44 y.o. year old male admitted on 12/17/2024 for chief complaint of symptomatic anemia. The inpatient gastroenterology, hepatology and nutrition team was asked to see him in consultation for anemia. He has a past medical history significant for decompensated EtOH cirrhosis. #Acute on chronic symptomatic anemia - Baseline Hgb of 7-8 - Hgb down to 6.3 in clinic, improved w/ transfusions and now stable - EGD 12/18: GAVE treated w/ APC - colonoscopy 12/18: unable to complete due to looping, no active bleeding or hematin RECOMMENDATIONS - will arrange for outpt colonoscopy - okay for discharge from hepatology perspective #Decompensated Cirrhosis - Etiology: EtOH - decompensated by: ascites, SBP, HE - MELD 3.0: 28 at 12/19/2024 4:52 AM - ascites: lasix 20mg daily and vandana 50mg daily, 2g Na diet, cipro 500mg daily for SBP ppx - HE: lactulose and rifaximin - EV: EGD 12/186 grade 1 EV , coreg 6.25mg BID - HCC: CT w/o suspicious lesions - txp: evaluated but not listed PLAN: - continue home lasix and spironolactone - continue home carvedilol 6.25mg BID - Monitor liver function with daily CMP, CBC, and INR - Avoid NSAIDs due to risk of gastritis/GI bleeding and renal failure. Up to 2grams of acetaminophen daily is safe to us Discussed with Dr. Dillon, gastroenterology, hepatology, and nutrition attending. Luis Herrera MD Gastroenterology and Hepatology PGY-6 Secure chat/[phone] [1] buPROPion SR, 150 mg, Oral, BID carvedilol, 6.25 mg, Oral, BID escitalopram, 5 mg, Oral, Daily pantoprazole, 40 mg, Intravenous, BID rifAXIMin, 550 mg, Oral, BID sodium chloride, 10 mL, Intravenous, q12h [2] [3] PRN medications: ondansetron ODT OR ondansetron OR ondansetron, Insert peripheral IV AND Saline lock IV AND sodium chloride AND sodium chloride Cosigned by Prieto Dillon MD at 12/22/2024 12:27 PM EST Associated attestation - Prieto Dillon MD - 12/22/2024 12:27 PM EST I saw and evaluated the patient with the resident/fellow. I discussed the case with the resident/fellow and agree with the findings and plan as documented. * Care Plan - Janiya David RN - 12/19/2024 8:42 AM EST Problem: Adult Inpatient Plan of Care Goal: Plan of Care Review Outcome: Ongoing, Progressing Flowsheets (Taken 12/19/2024 0840) Progress: improving Outcome Evaluation: Patient will remain free from falls throuhgout the shift. Plan of Care Reviewed With: patient Goal: Patient-Specific Goal (Individualized) Outcome: Ongoing, Progressing Flowsheets (Taken 12/18/20241999) Patient/Family-Specific Goals (Include Timeframe): patient will remain free from falls throughout shift Individualized Care Needs: education and support Anxieties, Fears or Concerns: none stated Goal: Absence of Hospital-Acquired Illness or Injury Outcome: Ongoing, Progressing Intervention: Identify and Manage Fall Risk Flowsheets (Taken 12/19/2024 0600) Safety Promotion/Fall Prevention: activity supervised assistive device/personal items within reach clutter-free environment maintained fall prevention program maintained lighting adjusted nonskid shoes/slippers when out of bed room organization consistent safety round/check completed Intervention: Prevent Skin Injury Flowsheets Taken 12/19/2024599 Body Position: weight shifting Taken 12/18/20241999 Skin Protection: transparent dressing maintained protective footwear used Intervention: Prevent and Manage VTE (Venous Thromboembolism) Risk Flowsheets (Taken 12/19/2024 0840) VTE Prevention/Management: SCDs (sequential compression devices) off Intervention: Prevent Infection Flowsheets (Taken 12/19/2024 0840) Infection Prevention: cohorting utilized single patient room provided environmental surveillance performed visitors restricted/screened equipment surfaces disinfected hand hygiene promoted personal protective equipment utilized rest/sleep promoted Goal: Optimal Comfort and Wellbeing Outcome: Ongoing, Progressing Intervention: Monitor Pain and Promote Comfort Flowsheets (Taken 12/19/2024 08) Pain Management Interventions: care clustered pain management plan reviewed with patient/caregiver rest Intervention: Provide Person-Centered Care Flowsheets (Taken 12/19/2024 0840) Trust Relationship/Rapport: care explained thoughts/feelings acknowledged choices provided emotional support provided empathic listening provided questions answered questions encouraged reassurance provided Problem: Fall Injury Risk Goal: Absence of Fall and Fall-Related Injury Outcome: Ongoing, Progressing Intervention: Identify and Manage Contributors Flowsheets (Taken 12/19/2024 0840) Medication Review/Management: medications reviewed Self-Care Promotion: independence encouraged BADL personal objects within reach BADL personal routines maintained Intervention: Promote Injury-Free Environment Flowsheets (Taken 12/19/2024599) Safety Promotion/Fall Prevention: activity supervised assistive device/personal items within reach clutter-free environment maintained fall prevention program maintained lighting adjusted nonskid shoes/slippers when out of bed room organization consistent safety round/check completed * Care Plan - Patricia Garcia RN - 12/18/2024 7:38 PM EST Problem: Adult Inpatient Plan of Care Goal: Plan of Care Review Outcome: Ongoing, Progressing Flowsheets (Taken 12/18/2024 1937) Progress: improving Outcome Evaluation: pt and spouse understand and agree with care plan Plan of Care Reviewed With: patient spouse parent Goal: Patient-Specific Goal (Individualized) Outcome: Ongoing, Progressing Goal: Absence of Hospital-Acquired Illness or Injury Outcome: Ongoing, Progressing Intervention: Identify and Manage Fall Risk Flowsheets (Taken 12/18/2024736) Safety Promotion/Fall Prevention: activity supervised assistive device/personal items within reach clutter-free environment maintained fall prevention program maintained lighting adjusted nonskid shoes/slippers when out of bed room organization consistent safety round/check completed Goal: Optimal Comfort and Wellbeing Outcome: Ongoing, Progressing Problem: Fall Injury Risk Goal: Absence of Fall and Fall-Related Injury Outcome: Ongoing, Progressing Intervention: Promote Injury-Free Environment Flowsheets (Taken 12/18/2024736) Safety Promotion/Fall Prevention: activity supervised assistive device/personal items within reach clutter-free environment maintained fall prevention program maintained lighting adjusted nonskid shoes/slippers when out of bed room organization consistent safety round/check completed * Hospital Course - Jayda Pierre - 12/18/2024 4:21 PM EST Orly White is a 44 y.o. male with a PMH of cirrhosis secondary to alcohol use (decompensated with ascites, HE, SBP), depression, anxiety, GERD, HTN, TUD who presents from transplant clinic due to lab findings including hemoglobin of 6.3 found on standard draw. He is currently undergoing workup for placement on the transplant list. Based on laboratory findings he was instructed to present to ED for blood transfusion and further work up of anemia via endoscopy. #GAVE s/p EGD #Acute on Chronic Anemia Reports no symptoms of GIB such as melena, hematochezia, hemoptysis. Reports he has never had EGD or colonoscopy. Investigation: Hgb 6.3 on admission. Transfused with 1U RBC on arrival and additional unit on first night of admission after Hb recheck EGD performed 12/18 showed GAVE, treated with ACP. Suspect this is the source of his anemia Unable to complete colonoscopy due to inadequate bowel prep GI consulted Monitored H&H regularly throughout admission and remained stable following scope and ACP Ordered iron, ferritin, B12, folate levels Intervention: IV protonix BID while inpatient Initially started on CTX and octreotide but stopped after no bleeding varices noted on endoscopy Continued home Coreg 6.25 mg BID for variceal prophylaxis Held DVT ppx iso acute bleeding Continue home Protonix Continue home Coreg End Result: Outpatient colonoscopy in February 2025 #Cirrhosis 2/2 EtOH Decompensated with Ascites, HE, SBP MELD 3.0 (12/17) 27 - MELD Na (12/17) 26, per transplant note; based on Cr 0.78, Na 139, Tbili 12.4, Albumin 2.8 INR ratio 2.4 Investigation: Bedside U/S unremarkable; paracentesis not indicated at this time Transplant following, not yet listed due to tobacco use. Hep A immune. Due for dose 2 of Hep B vaccine series in 1 month Screenings: CT abdomen 10/2024 w/ no suspicious liver lesions. AFP normal Monitored liver function daily while inpatient Intervention: Salt restricted diet For ascites, pedal edema: Home lasix 20mg daily, home spironolactone 50mg daily For HE ppx: Home rifaximin 550mg BID, home lactulose 10g TID For SBP ppx: Home ciprofloxacin 500mg daily End Result: Avoid NSAIDs due to risk of gastritis/GI bleeding and renal failure. Up to 2grams of acetaminophen daily is safe to use. Follow up with transplant hepatology. Chronic Medical Conditions #GERD - Pantoprazole 40mg BID #TUD - Home wellbutrin 150mg BID #Anxiety, depression - Home lexapro 5mg daily #HTN - No home medications, BP controlled right now * Progress Notes - Sadia Ventura RN - 12/18/2024 2:46 PM EST Case Management Adult Initial Progress Note Orly White 44 y.o. male CSN: [id number] Admission: 12/17/2024 9:32 AM Primary Problem: Anemia [employer] reviewed chart and spoke with patient and his and Mom at to complete this Initial Case Management Assessment. PCP: [facility] Emergency Contact: Extended Emergency Contact Information Primary Emergency Contact: Patricia White Address[address] [address] [facility] Mobile Relation: Spouse Preferred language: Slovak Insurance: Primary Visit Coverage Payer Plan Sponsor Code Group Number Group Name [employer] [place] Primary Visit Coverage Subscriber Subscriber ID Subscriber Name Subscriber SSN Subscriber Address [id number] Orly White [phone] [place] [address] Secondary Visit Coverage Payer Plan Sponsor Code Group Number Group Name [facility] [employer] Secondary Visit Coverage Subscriber Subscriber ID Subscriber Name Subscriber SSN Subscriber Address [id number] ORLY WHITE [id number] [id number] Patient information: Primary Caregiver: Self Accompanied by/Relationship: , Mom Support System: Immediate family Daily Living Activities: Functional Status: Independent Living Arrangements: Spouse/Significant other, Children Type of Residence: Single Level [address] [place] [address] Current DME: Equipment Currently Used at Home: none Housing Circumstances-Z Codes: Housing Circumstances (select all that apply): None Applicable Anticipated Discharge Date: unknown Patient's Discharge Goal: home Assistance Available at Discharge: , step-son, Mom, uncle Discharge Transport: , Mom Follow Up Transport: family Home Health / Home Infusion / Outpatient Dialysis Services: none Living Will/Advance Directive/Power of Roof Truss Detailer /Guardian: Pt does not have a living will or POA. Additional Comments: Pt admitted for anemia. Met with pt and family at , verified information. Pt has a PCP, Param Eng, with the last visit approx a few months ago. Pt lives with his and step-son, age 29, whoare able to provide assistance at home if needed. Pt has [employer] and [place] [employer], as his insurance. Transportation home will be provided by his /Mom. Pt has listed his , Patricia White, as his emergency contact, phone # [phone]. Pt obtains medications from [facility]. Pt currently does not have DME or HH services. Will continue to follow and assist with d/c needs as they arise. Sadia Ventura RN * Progress Notes - Martina Bess MD - 12/18/2024 2:02 PM EST Images from the original note were not included. Hospital Medicine Progress Note Subjective Chief presenting concern: Orly White is a 44 y.o. male with PMH of cirrhosis secondary to alcohol use (decompensated with ascites, HE, SBP), depression, anxiety, GERD, HTN, TUD who presents due to hemoglobin of 6.3 identified during transplant clinic appointment. Sent to ED for transfusion and further work up Subjective -Received additional blood transfusion overnight due to Hb <7 on recheck -Completed bowel prep overnight but still had brown stools with chunks. Administered smog enema in the morning -EGD completed successfully. They were unable to complete colonoscopy Objective Objective Last Recorded Vitals Blood pressure 126/83, pulse 75, temperature 36.3 ??C (97.4 ??F), temperature source Temporal, resp. rate 23, height 1.88 m (6' 2.02 ), weight 108 kg (238 lb 1.6 oz), SpO2 98%. Physical Exam Constitutional: General: He is not in acute distress. Appearance: Normal appearance. HENT: Head: Normocephalic and atraumatic. Nose: Nose normal. Eyes: General: Scleral icterus present. Pulmonary: Effort: Pulmonary effort is normal. Comments: Breathing comfortably on room air Musculoskeletal: General: Normal range of motion. Cervical back: Normal range of motion. Skin: Coloration: Skin is jaundiced. Neurological: General: No focal deficit present. Mental Status: He is alert. Data Labs personally reviewed: Notble for hemoglobin increase to 8.1, INR 2.4, Na 132, T bili 15.9 Imaging ECG personally reviewed, showing Normal sinus rhythm . Qt prolongation No new imaging Assessment/Plan Assessment & Plan Principal Problem: Anemia Orly White is a 44 y.o. male with PMH of cirrhosis secondary to alcohol use (decompensated with ascites, HE, SBP), depression, anxiety, GERD, HTN, TUD who presents due to hemoglobin of 6.3 identified during transplant clinic appointment this morning.It appears that anemia has been chronicwith multiple blood transfusions over the past few months and he has no symptoms of acute GI bleed such as melena, hematochezia, hemoptysis, abdominal pain or changes in bowel movements. 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 This condition poses an acute threat to life/bodily function. #GAVE s/p EGD #Acute on Chronic Anemia - Hgb 6.3 today. Transfused with 1U RBC on arrival - Reports he has never had EGD or colonoscopy -EGD performed 12/18 showed GAVE, treated with ACP. Suspect this is the source of his anemia -Unable to complete colonoscopy due to inadequate bowel prep Plan -GI following -Will recheck H&H this afternoon -Continue home Protonix -Continue home Coreg 6.25mg BID, d/t c/f varices -Will need colonoscopy outpatient for transplant evaluation -Resumed regular diet -Stopped octreotide and CTX given no variceal bleeding #Cirrhosis 2/2 EtOH Decompensated with Ascites, HE, SBP - MELD 3.0 (12/17) 27 - MELD Na (12/17) 26, per transplant note; based on Cr 0.78, Na 139, Tbili 12.4, Albumin 2.8 INR ratio 2.4 - Bedside U/S unremarkable; paracentesis not indicated at this time -Transplant following, not yet listed due to tobacco use. -Hep A immune. Due for dose 2 of Hep B vaccine series in 1 month Plan - For ascites, pedal edema: Hold home lasix 20mg daily, hold home spironolactone 50mg daily d/t c/fpossible GI bleed - For HE ppx: Restart home rifaximin 550mg BID, hold home lactulose 15mL TID d/t bowel prep regimen - For SBP ppx: Restart home ciprofloxacin 500mg daily -Screenings: CT abdomen 10/2024 w/ no suspicious liver lesions. AFP normal -Continue salt restricted diet Chronic Medical Conditions #GERD - Pantoprazole 40mg daily #TUD - Restart home wellbutrin 150mg daily #Anxiety, depression - Restart home lexapro 5mg daily #HTN - No home medications, BP controlled right now Care today included: HIGHRISK: Discussion of management/test with another provider: SHIVA Bess MD PGY1, Internal Medicine/Pediatrics Electronically Signed by: Martina Bess MD - 12/18/2024 - 2:03 PM Cosigned by Leroy Aponte MD at 12/18/2024 4:05 PM EST Associated attestation - Leroy Aponte MD - 12/18/2024 4:05 PM EST I saw and evaluated the patient. I discussed the case with the resident/fellow and agree with the findings and plan as documented. Pending no further complications, plan for discharge 12/19/2024 * Consults - Luis Herrera MD - 12/18/2024 9:33 AM ESTAssociated Order(s): Inpatient consult - [facility]A [facility] Inpatient consult - [facility] Consult performed by: Luis Herrera MD Consult ordered by: Leroy Aponte MD Inpatient Gastroenterology, Hepatology and Nutrition Initial Consultation Note: Patient: Orly White Date of : 1980 Room: [facility] Referring provider: Leroy Aponte MD Reason for consultation: anemia Subjective: History of present illness: Mr. White is a 44 y.o. year old male admitted on 12/17/2024 for chief complaint of symptomatic anemia. The inpatient gastroenterology, hepatology and nutrition team was asked to see him in consultation for anemia. He has a past medical history significant for decompensated EtOH cirrhosis. Pt presented to clinic yesterday with worsening fatigue and weakness for several days. Denies any nausea, vomiting, melena, hematochezia, or abdominal pain. Denies any confusion or change in sleepinghabits. Labs done at clinic found to have hgb 6.3 then sent to [facility] for further work-up. Today feeling a little better after getting blood. Review of Systems: General: +fatigue, weakness Eyes: No blurred vision, double vision, or scleral icterus Nose: No epistaxis, nasal congestion Throat: No sore throat CV: No chest pain, shortness of breath. Resp: No shortness of breath. No cough. GI: No abdominal pain. No nausea, vomiting, constipation, diarrhea, or GI bleeding. : No change in urine frequency and no dysuria. Skin: No rashes, bruising or jaundice Msk/Ext: No arthralgias. Neuro: No headaches, dizziness. Past Medical History[1] Surgical History[2] Family History[3] Family history reviewed and non-contributory Social History[4] Allergies[5] Current Medications[6] Objective: Temp: [36.5 ??C (97.7 ??F)-37 ??C (98.6 ??F)] 36.9 ??C (98.4 ??F) Heart Rate: [64-85] 71 Resp: [12-20] 18 BP: (118-165)/(60-77) 128/71 Weight: 108 kg (238 lb 1.6 oz) Body mass index is 30.57 kg/m??. Physical Examination: General Appearance: Awake, alert, oriented x 3, in no apparent distress Head: Normocephalic, atraumatic Eyes: +scleral icterus, EOMI. Neck: Neck supple, no adenopathy. Lungs: Lungs clear to auscultation with no wheezing, rales, or rhonchi Heart: Regular rate and rhythm Abdomen: Abdomen soft, non-tender, mild distention. Bowel sounds normal. No rebound or guarding. Noascites, no organomegaly. Extremities: No lower extremity edema. Neurologic: Mental status intact. No gross neurologic deficits. Laboratory: CBC WBC 4.24 Hb 8.1 (L) Plt 69 (L) Hct 26.2 (L) INR 2.4 (H) BMP Na 132 (L) Cl 104 BUN 17 Glu 85 K 4.6 Co2 20 (L) Cr 0.81 Mg 1.6 (L) Phos 3.7 LFT AST 76 (H) AlkPhos 111 T Prot 5.9 (L) ALK 35 T Bili 15.9 (H) Alb ?? Imaging: === 10/18/24 === CT ABDOMEN W IV CONTRAST - Narrative - CLINICAL INDICATION: Inpatient Liver Transplant Eval FINDINGS: Liver, Gallbladder, Biliary Tract: Morphologic changes of the liver consistent with parenchymal disease. Wedge-shaped area of hyperenhancement on arterial phase images in the left hepatic lobe that subtly persists on portal venous phase, without washout or pseudocapsule on delayed imaging favoring transient hepatic attenuation differences (5:45). Several subcentimeter hypoattenuation foci in the right hepatic lobe may represent cysts (9:25, 35, 39 and 62). Thickened gallbladder wall likely related to hepatic parenchymal disease. No biliary ductal dilatation. Vasculature: The splenoportal venous system is patent. Patent hepatic arterial tree. Hepatic veins and IVC appear patent. The abdominal aorta is normal in caliber. Small esophageal varices. Recanalized periumbilical vein. Multiple dilated retroperitoneal and mesenteric collaterals. Spleen: Splenomegaly measuring 14 cm in craniocaudal dimension. Other Solid Abdominal Organs: Unremarkable pancreas, bilateral adrenal glands. Symmetric renal enhancement. No hydronephrosis. GI Tract/Mesentery/Peritoneum: Unremarkable stomach. The large and small bowel are normal in caliber. Mesenteric stranding and edema. No suspicious mesenteric or peritoneal findings. Lymph Nodes: No lymphadenopathy by CT size criteria. Free Fluid: Small volume ascites. Musculoskeletal and Body Wall: Body wall edema. No suspicious osseous lesion. Lower Chest: Small left pleural effusion and atelectasis. - Impression - Morphologic changes of the liver consistent with parenchymal disease. Wedge- shaped hyperenhancementin the left hepatic lobe favoring transient hepatic attenuation differences. Hypoattenuating subcentimeter lesions in the right hemiliver may represent cysts. Sequela of portal hypertension with mild splenomegaly, small volume ascites, and portosystemic collaterals. Small left pleural effusion. Assessment and Plan: Mr. White is a 44 y.o. year old male admitted on 12/17/2024 for chief complaint of symptomatic anemia. The inpatient gastroenterology, hepatology and nutrition team was asked to see him in consultation for anemia. He has a past medical history significant for decompensated EtOH cirrhosis. #Acute on chronic symptomatic anemia - Baseline Hgb of 7-8 - Hgb down to 6.3 in clinic - No overt GI bleeding signs - Never had EGD or colonoscopy RECOMMENDATIONS: - prepped for colonoscopy overnight - posted for EGD and colonoscopy today - keep NPO - hold DVT ppx #Decompensated Cirrhosis - Etiology: EtOH - decompensated by: ascites, SBP, HE - MELD 3.0: 28 at 12/18/2024 4:47 AM - ascites: lasix 20mg daily and vandana 50mg daily, 2g Na diet, cipro 500mg daily for SBP ppx - HE: lactulose and rifaximin - EV: no previous EGD, coreg 6.25mg BID - HCC: CT w/o suspicious lesions - txp: evaluated but not listed PLAN: - continue home lasix and spironolactone - Please perform diagnostic and therapeutic (if able) paracentesis. Send for fluid cell count, fluid Cx (blood culture bottles), fluid albumin, fluid - Monitor liver function with daily CMP, CBC, and INR - Avoid NSAIDs due to risk of gastritis/GI bleeding and renal failure. Up to 2grams of acetaminophen daily is safe to us Thank you for the opportunity to participate in this patient's care! Will continue to follow along with you. Patient seen by and discussed with Dr. Dillon, gastroenterology, hepatology and nutrition attending physician. Luis Herrera MD Gastroenterology and Hepatology PGY-6 Secure chat/[phone] [1] Past Medical History: Diagnosis Date Anxiety Depression Enterocolitis due to Clostridium difficile, not specified as recurrent 11/04/2024 GERD (gastroesophageal reflux disease) Hypertension [2] Past Surgical History: Procedure Laterality Date VASECTOMY [3] No family history on file. [4] Social History Tobacco Use Smoking status: Never Passive exposure: Current Smokeless tobacco: Current Types: Chew Substance Use Topics Alcohol use: Not Currently Alcohol/week: 4.0 standard drinks of alcohol Types: 4 Cans of beer per week Comment: Quit 2 months ago Drug use: Never [5] Allergies Allergen Reactions Amoxicillin Hives and Rash Childhood allergy [6] Current Facility-Administered Medications: buPROPion SR (Wellbutrin SR) 12 hr tablet 150 mg, 150 mg, Oral, BID, Martina Bess MD, 150 mg at102/17/242001 carvedilol (Coreg) tablet 6.25 mg, 6.25 mg, Oral, BID, Martina Bess MD, 6.25 mg at 12/17/242001 cefTRIAXone (Rocephin) 1 g in sodium chloride 0.9% 100 mL IVPB (vial adapter required), 1 g, Intravenous, q24h, Yash Galindo MD, Last Rate: 220 mL/hr at 12/17/242053, 1 g at 12/17/242053 escitalopram (Lexapro) tablet 5 mg, 5 mg, Oral, Daily, Martina Bess MD magnesium sulfate IVPB 2 g, 2 g, Intravenous, Once, Martina Bess MD, Last Rate: 25 mL/hr at 12/18/24817, 2 g at 12/18/24817 octreotide (SandoSTATIN) 1,000 mcg in sodium chloride 0.9 % 100 mL infusion, 50 mcg/hr, Intravenous, Continuous, Yash Galindo MD, Last Rate: 5 mL/hr at 12/17/242002, 50 mcg/hr at 12/17/242002 ondansetron ODT (Zofran-ODT) disintegrating tablet 4 mg, 4 mg, Oral, q6h PRN OR ondansetron (Zofran) injection 4 mg, 4 mg, Intravenous, q6h PRN, 4 mg at 12/17/242210 OR ondansetron (Zofran) 4 MG/5ML solution 4 mg, 4 mg, Oral, q6h PRN, Yash Galindo MD pantoprazole (Protonix) injection 40 mg, 40 mg, Intravenous, BID, Yash Galindo MD, 40 mg at 12/18/24816 rifAXIMin (Xifaxan) tablet 550 mg, 550 mg, Oral, BID, Martina Bess MD, 550 mg at 12/17/242001 Insert peripheral IV, , , Once AND Saline lock IV, , , Once AND sodium chloride 0.9 % flush10 mL, 10 mL, Intravenous, q12h, 10 mL at 12/18/24817 AND sodium chloride 0.9 % flush 10 mL, 10 mL, Intravenous, PRN, Martina Bess MD Cosigned by Prieto Dillon MD at 12/18/2024 9:54 AM EST Associated attestation - Prieto Dillon MD - 12/18/2024 9:54 AM EST I saw and evaluated the patient with the resident/fellow. I discussed the case with the resident/fellow and agree with the findings and plan as documented. * Care Plan - Rola Huff RN - 12/18/2024 7:04 AM EST Problem: Adult Inpatient Plan of Care Goal: Plan of Care Review Outcome: Ongoing, Progressing Flowsheets (Taken 12/18/2024701) Progress: improving Outcome Evaluation: Pt and spouse understand and agree with plan of care Plan of Care Reviewed With: patient spouse Goal: Patient-Specific Goal (Individualized) Outcome: Ongoing, Progressing Flowsheets (Taken 12/17/20241999) Patient/Family-Specific Goals (Include Timeframe): Pt will remain free from injury/fall during shift Individualized Care Needs: Safety Anxieties, Fears or Concerns: None stated Goal: Absence of Hospital-Acquired Illness or Injury Outcome: Ongoing, Progressing Intervention: Identify and Manage Fall Risk Flowsheets (Taken 12/18/2024701) Safety Promotion/Fall Prevention: activity supervised clutter-free environment maintained lighting adjusted assistive device/personal items within reach nonskid shoes/slippers when out of bed room organization consistent safety round/check completed Intervention: Prevent Skin Injury Flowsheets (Taken 12/18/2024701) Body Position: weight shifting Skin Protection: incontinence pads utilized Intervention: Prevent and Manage VTE (Venous Thromboembolism) Risk Flowsheets (Taken 12/18/2024 0400) VTE Prevention/Management: SCDs (sequential compression devices) off education provided Intervention: Prevent Infection Flowsheets (Taken 12/18/2024701) Infection Prevention: environmental surveillance performed equipment surfaces disinfected hand hygiene promoted Goal: Optimal Comfort and Wellbeing Outcome: Ongoing, Progressing Intervention: Monitor Pain and Promote Comfort Flowsheets (Taken 12/18/2024701) Pain Management Interventions: care clustered Intervention: Provide Person-Centered Care Flowsheets (Taken 12/18/2024701) Trust Relationship/Rapport: care explained choices provided emotional support provided empathic listening provided questions answered questions encouraged * Consults - Jarrod Celeste - 12/17/2024 3:30 PM EST Pastoral Care Note Senior Office Assistant met patient at bedside and provided emotional support. Patient spoke about his health and hospitalization. Patient is support by family, spouse. Patient share about his felisa and appreciatesprayer. Senior Office Assistant provided a supportive presence, empathic listening, and a prayer per patient's request. Pastoral care will continue to be available as needed. Referral From: Senior Office Assistant Initiated Pastoral Care Provided For: Patient Patient Profile: Consult Reasons: Emotional support Spiritual Assessment: Support Systems/ Spiritual Resources: Felisa, Family, Prayer Spiritual Needs: Emotional support, Prayer, Spiritual support Spiritual Issues: Chronic pain/ illness Interventions: Interventions Provided: Emotional support, Prayer, Identify shinto/ spiritual coping, Spiritual support, Supportive Listening Pastoral Care Outcomes: Patient Outcomes: Demonstrates lower level of Anxious(ness), Is knowledgeable about [employer], Appreciative of Senior Office Assistant Support, Identifies spiritual or shinto practices as helpful * H&P - Martina Bess MD - 12/17/2024 2:17 PM ESTAssociated Order(s): Consult to [facility] Images from the original note were not included. [facility] Medicine History & Physical Consult to [facility] Consult performed by: Martina Bess MD Consult ordered by: Amber Peñaloza PA Reason for consult: UGIB Subjective 12/17/2024 Chief Complaint: Chief Complaint Patient presents with Abnormal Lab History Of Present Illness Orly White is a 44 y.o. male with a PMH of cirrhosis secondary to alcohol use (decompensated with ascites, HE, SBP), depression, anxiety, GERD, HTN, TUD who presents from transplant clinic due to lab findings including hemoglobin of 6.3 found on standard draw. He is currently undergoing workup for placement on the transplant list. Per, Dr. Dillon's note, Mr. White was instructed to present to [facility] this morning for blood transfusion and admission for EGD and colonoscopy. Mr. White has had multiple blood transfusions in the last few months. Today, he is accompanied by his , Patricia. Mr. White reports he has been doing well and had not been experiencing any new symptoms to indicate this change in his lab values. Feels that jaundice and ascites are improved compared to past few months. He was first diagnosed with cirrhosis in August 2024 and has since had three paracentesis. His most recent paracentesis was 2 months ago. Mr. White and his report he was encephalopathic twoweeks ago, at which time his transplant hematology provider prescribed Rifaximin. He has not started this medication yet because he has not received it in the mail. Him and his report he has returned to his baseline mental status since then. Mr. White denies abdominal pain but has noticed more abdominal distention today. He has had fluctuating weight changes since August but attributes this to water weight. He reports he has 2-3 BM per day. He endorses significant fatigue but attributes this to lack of sleep and states this is his baseline because he has never slept well. Mr. White denies history of H. Pylori infection, NSAID use, hemoptysis, hematemesis, hematochezia, melena, nausea, vomiting, fever, chills. His last drink of alcohol was around 08/15/2024. He last used tobacco products (dip) 3 weeks ago. He has since been using a herbal dip pouch which is free from both tobacco and nicotine and reports this has helped with his cravings. He has not had an episode of syncope and reports his appetite has been good. Mr. White reports he has never had a colonoscopy or EGD.Reports adherence to all medications. Additional history was provided by family I reviewed prior records including his most recent ED note and most recent transplant specialist note. Past Medical History Past Medical History[1] Surgical History Surgical History[2] Family History Family History[3] Social History Social History[4] Home Medications Current Outpatient Medications Medication Instructions buPROPion [...] Daily traZODone (DESYREL) 25 mg, Oral, Nightly Objective Blood pressure 133/66, pulse 75, temperature 36.7 ??C (98.1 ??F), temperature source Oral, resp. rate 18, height 1.88 m (6' 2 ), weight 108 kg (238 lb 1.6 oz), SpO2 99%. Physical Exam Constitutional: General: He is not in acute distress. Appearance: Normal appearance. He is not ill-appearing or toxic-appearing. HENT: Head: Normocephalic. Right Ear: External ear normal. Left Ear: External ear normal. Nose: Nose normal. Mouth/Throat: Mouth: Mucous membranes are moist. Eyes: General: Scleral icterus present. Extraocular Movements: Extraocular movements intact. Cardiovascular: Rate and Rhythm: Normal rate and regular rhythm. Heart sounds: Normal heart sounds. Pulmonary: Effort: Pulmonary effort is normal. No respiratory distress. Breath sounds: Normal breath sounds. Abdominal: General: There is distension. Tenderness: There is no abdominal tenderness. Musculoskeletal: Cervical back: Normal range of motion. Right lower leg: Edema present. Left lower leg: Edema present. Skin: General: Skin is warm and dry. Coloration: Skin is jaundiced. Neurological: General: No focal deficit present. Mental Status: He is alert. Mental status is at baseline. Psychiatric: Mood and Affect: Mood normal. Data Labs personally reviewed Recent Results (from the past 24 hours) Protime-INR Collection Time: 12/17/24 7:01 AM Result Value Ref Range Prothrombin Time 26.6 (H) 12.0 - 14.3 sec INR 2.4 (H) 0.9 - 1.1 Comprehensive metabolic panel Collection Time: 12/17/24 7:01 AM Result Value Ref Range Glucose, Plasma 85 74 - 99 mg/dL BUN, Plasma 19 7 - 21 mg/dL Creatinine, Plasma 0.78 0.70 - 1.20 mg/dL BUN/Creatinine Ratio 24 Sodium, Plasma 139 136 - 145 mmol/L Potassium, Plasma 4.2 3.6 - 4.9 mmol/L Chloride, Plasma 108 (H) 97 - 107 mmol/L CO2, Plasma 21 (L) 22 - 29 mmol/L Anion Gap 10 6 - 16 mmol/L Total Calcium, Plasma 8.2 (L) 8.9 - 10.2 mg/dL Total Protein 5.8 (L) 6.3 - 7.9 g/dL Albumin, Plasma 2.8 (L) 3.5 - 5.2 g/dL AST, Plasma 76 (H) 10 - 50 U/L ALT, Plasma 35 10 - 50 U/L Alkaline Phosphatase, Plasma 152 (H) 40 - 115 U/L Total Bilirubin, Plasma 12.4 (H) 0.2 - 1.1 mg/dL eGFRcr 112.1 mL/min/1.73m*2 CBC w/o differential Collection Time: 12/17/24 7:01 AM Result Value Ref Range WBC Count 3.57 (L) 3.70 - 10.30 10*3/uL RBC Count 2.00 (L) 4.60 - 6.10 10*6/uL HGB 6.3 (LL) 13.7 - 17.5 g/dL HCT 21.7 (L) 40.0 - 51.0 % Platelet Count 75 (L) 155 - 369 10*3/uL MCV 109 (H) 79 - 98 fL MCH 31.5 26.0 - 32.0 pg MCHC 29.0 (L) 30.7 - 35.5 g/dL RDW 17.9 (H) 11.5 - 14.5 % MPV 10.3 8.8 - 12.5 fL nRBC 0.0 <=0.0 per 100 WBCs Type and Screen Collection Time: 12/17/24 7:48 AM Result Value Ref Range ABO/Rh A Negative Antibody Screen Negative Specimen Expiration 12/20/2024 23:59 Prepare Leukocyte Reduced RBC: 1 Units Collection Time: 12/17/24 10:05 AM Result Value Ref Range Product Code [id number] Dispense Status Transfused Blood Expiration Date [id number] Unit Number [id number] Product Blood Type 0600 Blood Type A- Crossmatch Compatible Imaging No new imaging at this time. Assessment/Plan Active Problems: There are no active Hospital Problems. Orly White is a 44 y.o. male with PMH of cirrhosis secondary to alcohol use (decompensated with ascites, HE, SBP), depression, anxiety, GERD, HTN, TUD who presents due to hemoglobin of 6.3 identified during transplant clinic appointment this morning.It appears that anemia has been chronicwith multiple blood transfusions over the past few months and he has no symptoms of acute GI bleed such as melena, hematochezia, hemoptysis, abdominal pain or changes in bowel movements. He is hemodynamically stable. Therefore, low concern for large volume variceal bleed and suspect a slower, chronic etiology of blood loss such as GAVE or PUD. Given persistence of anemia and risk for bleeding iso decompensated cirrhosis, will admit for inpatient endoscopy. This condition poses an acute threat to life/bodily function. #Acute on Chronic Anemia with c/f GI Bleed - Hgb 6.3 today. Transfused with 1U RBC on arrival - Reports he has never had EGD or colonoscopy Plan -GI consulted - EGD and colonoscopy tomorrow 12/18; Bowel prep (Nulytely 2L 5pm 12/17 & 3am 12/18); CLD until NPO @ [facility], per GI. 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 -Hep A immune. Due for dose 2 of Hep B vaccine series in 1 month Plan - For ascites, pedal edema: Hold home lasix 20mg daily, hold home spironolactone 50mg daily d/t c/fpossible GI bleed - For HE ppx: Restart home rifaximin 550mg BID, hold home lactulose 15mL TID d/t bowel prep regimen - For SBP ppx: Restart home ciprofloxacin 500mg daily - Per GI, not starting octreotide or ceftriaxone given low risk for large variceal bleed -Screenings: CT abdomen 10/2024 w/ no suspicious liver lesions. AFP normal -Continue salt restricted diet Chronic Medical Conditions #GERD - Pantoprazole 40mg daily #TUD - Restart home wellbutrin 150mg daily #Anxiety, depression - Restart home lexapro 5mg daily #HTN - No home medications, BP controlled right now Care today included: HIGHRISK: Discussion of management/test with another provider: SHIVA Pierre, MS3 I saw and evaluated the patient with the medical student. I discussed the case with the medical student and agree with the findings and plan as documented. I personally performed the Exam and MedicalDecision Making. [1] Past Medical History: Diagnosis Date Anxiety Depression Enterocolitis due to Clostridium difficile, not specified as recurrent 11/04/2024 GERD (gastroesophageal reflux disease) Hypertension [2] Past Surgical History: Procedure Laterality Date VASECTOMY [3] No family history on file. [4] Social History Tobacco Use Smoking status: Never Passive exposure: Current Smokeless tobacco: Current Types: Chew Substance Use Topics Alcohol use: Not Currently Alcohol/week: 4.0 standard drinks of alcohol Types: 4 Cans of beer per week Comment: Quit 2 months ago Drug use: Never Cosigned by Leroy Aponte MD at 12/17/2024 6:06 PM EST Associated attestation - Leroy Aponte MD - 12/17/2024 6:06 PM EST I saw and evaluated the patient with the resident/fellow. I discussed the case with the resident/fellow and agree with the findings and plan as documented. Suspected GI bleed in setting of decompensated alcoholic cirrhosis GI consulted - Plan for EGD & colonoscopy 12/18/2024 Pantoprazole IV BID, octreotide & CTX * ED Provider Notes - Amber Peñaloza PA - 12/17/2024 9:05 AM EST Images from the original note were not included. - HPI Chief Complaint Patient presents with Abnormal Lab PIT NOTE Orly White is a 44 y.o. male w h/o Cirrhosis/severe alcohol-related hepatitis, prior EtOH abuse, HTN, GERD who presents to the ED with Abnormal Lab. Pt presents from transplant clinic follow up after lab draw this morning showed Hgb 6.3. Per most recent transplant note, pt's most recent MELD was 27. GI is also advising for admission for EGD and colonoscopy. Pt denies any symptomatic complaints currently. Pt denies fever, chills, N/V/D, headache, dizziness, chest pain, SOA, and urinary symptoms. PAUL: Agree with history as stated above. Patient endorses that he has had increased fatigue over the last week however states that he has difficulty sleeping at baseline. Patient states that he was advised by GI to come to the emergency department for blood transfusion and admission for EGD. Patient denies any current symptoms, denies any hematochezia, dark tarry stools, hematemesis, fevers, chills, hematuria. 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 Constitutional: General: He is not in acute distress. Appearance: Normal appearance. HENT: Head: Normocephalic and atraumatic. Nose: No rhinorrhea. Mouth/Throat: Mouth: Mucous membranes are moist. Pharynx: Oropharynx is clear. Eyes: General: Scleral icterus present. Pupils: Pupils are equal, round, and reactive to light. Cardiovascular: Rate and Rhythm: Normal rate. Pulmonary: Effort: Pulmonary effort is normal. No respiratory distress. Breath sounds: No stridor. Abdominal: Tenderness: There is no abdominal tenderness. Musculoskeletal: General: Normal range of motion. Cervical back: No rigidity. Skin: General: Skin is warm and dry. Coloration: Skin is jaundiced. Neurological: Mental Status: He is alert and oriented to person, place, and time. Psychiatric: Mood and Affect: Mood normal. Behavior: Behavior normal. Regent Coma Scale Score: 15 ED Course & MDM - Assessment: 44 y.o. male presents to ED with complaint of abnormal lab. It should be noted that the chronic conditions includes alcohol related cirrhosis, which currently is not at goal therapy. This complicatesthe clinical picture because it Comorbidities: may be exacerbating symptoms Differential Diagnosis: Anemia, electrolyte abnormality, cirrhosis, esophageal varices In order to fully explore the differential diagnosis the following treatments and tests were ordered: All Other Orders Ordered Status Ordering Provider 12/17/24 1035 Consult to [facility] Once Specialty: Internal Medicine Provider: (Not yet assigned) Acknowledged AMBER PEÑALOZA 12/17/24 1035 ED to floor bed request Once Acknowledged AMBER PEÑALOZA 12/17/24 1005 Initiate Contact D Isolation Continuous Comments: Added via Instant Order OPA Acknowledged BPA, INSTANT ORDERS 12/17/24 1005 Prepare Leukocyte Reduced RBC: 1 Units Blood - Once Placed in And Linked Group Final result AMBER PEÑALOZA 12/17/24 1005 Transfuse RBC Transfusion Placed in And Linked Group Final result AMBER PEÑALOZA 12/17/24 0922 Insert peripheral IV Once Acknowledged DIONICIO MASON 12/17/24 0922 Cardiac monitoring Until discontinued Acknowledged DIONICIO MASON ED Course as of 12/17/24 1414 SunDec 17, 2024 0940 Per chart review patient was seen by Gastroenterology in clinic this morning with labs concerning for anemia at 6.3. Per gastroenterology note patient is to be admitted to the hospital for EGD for further evaluation of source of anemia. Type and screen and all needed labs were performed in clinic this morning. Patient has meld of 27. [MA] 1004 Patient consented for blood transfusion [MA] 1035 I had a interactive discussion with Internal Medicine regarding the patient's presentation andhistory. [MA] 1102 IM At bedside. [MA] ED Course User Index [MA] Amber Peñaloza, PA Clinical Impressions as of 12/17/24 1414 Alcoholic cirrhosis, unspecified whether ascites present Symptomatic anemia After evaluating the patient at bedside internal medicine agreed to admit the patient for further evaluation and management. Patient was agreeable to care plan and stable prior to transfer of care. Ultimately, this patient was Was admitted (Admission) The primary encounter diagnosis was Alcoholic cirrhosis, unspecified whether ascites present. A diagnosis of Symptomatic anemia was also pertinent to this visit.. Patient believed to require admission for the listed diagnoses. The Internal Medicine service was consulted for admission and was agreeable to admit to Acute Floor (Med/Surg). ED Prescriptions None Disposition Admit Requested Location: [facility] [[id number]] [facility] Date/Time: 12/17/2024, 9:20 AM Entered by Elisa Alfaro acting as scribe for Dionicio Viramontes MD. Attending Attestation: The documentation was recorded by Elisa Alfaro acting as scribe in my presence at the time of the encounter and accurately reflects the service I personally performed. [1] Past Medical History: Diagnosis Date Anxiety Depression Enterocolitis due to Clostridium difficile, not specified as recurrent 11/04/2024 GERD (gastroesophageal reflux disease) Hypertension [2] Past Surgical History: Procedure Laterality Date VASECTOMY [3] No family history on file. [4] Tobacco Use Smoking status: Never Passive exposure: Current Smokeless tobacco: Current Types: Chew Substance Use Topics Alcohol use: Not Currently Alcohol/week: 4.0 standard drinks of alcohol Types: 4 Cans of beer per week Comment: Quit 2 months ago Drug use: Never [5] Allergies Allergen Reactions Amoxicillin Hives and Rash Childhood allergy Amber Peñaloza PA 12/17/24 1414 Cosigned by Dionicio Mason MD at 12/30/2024 4:14 PM EST Associated attestation - Dionicio Mason MD - 12/30/2024 4:14 PM EST I attest to being involved in providing substantive part of the medical decision making in patient care. * ED Triage Notes - Barbara Lamas RN - 12/17/2024 9:05 AM EST Pt states he was sent to the ED from transplant clinic for hemoglobin of 6.3. Pt denies bleeding. documented in this encounter Plan of Treatment Upcoming Encounters Date Type Department Care Team (Late st Contact Info) Description 02/17/2025 7:00 AM EST Clinical [address] [facility] [address] [place] [address] 02/17/2025 8:40 AM EST Office Visit [facility] [place] [address] [place] [address] [id number]-[id number] urgery-Paul 03/06/2025 11:10 AM EST Appointment [facility] [address] [place] [address] Natalya Valentine MD [address] [place] [id number] Scheduled Referrals Name Type Priority Associated Diagnoses Orde r Schedule Ambulatory referral for Follow Up Care (NO PCP on File) Outpatient Referral Routine Alcoholic cirrhosis, unspecified whether ascites present Symptomatic anemia Anemia, unspecified type Alcohol abuse, uncomplicated Alcohol use disorder, severe, dependence (CMS/HCC) Alcoholic hepatitis with ascites Decompensation of cirrhosis of liver (CMS/HCC) Depressive disorder Essential (primary) hypertension Generalized anxiety disorder Mild episode of recurrent major depressive disorder (CMS/HCC) Muscle weakness (generalized) Other cervical disc displacement, high cervical region Chronic pain of left knee Primary insomnia Spontaneous bacterial peritonitis Tobacco use disorder, continuous Unspecified jaundice 1 Occurrences starting 12/20/2024 until 06/23/2026 documented as of this encounter Procedures Procedure Name Priority Date/Time Associated Diagnosis Comments HEMOGLOBIN AND HEMATOCRIT, BLOOD Pending Discharge 12/20/2024 9:57 AM EST PHOSPHORUS, PLASMA Pending Discharge 12/20/2024 8:32 AM EST MAGNESIUM, PLASMA Pending Discharge 12/20/2024 8:32 AM EST PREPARE RBC Routine 12/20/2024 4:21 AM EST PROTHROMBIN TIME(PT) / INR Routine 12/20/2024 2:04 AM EST CBC W/O DIFFERENTIAL Routine 12/20/2024 2:04 AM EST COMPREHENSIVE METABOLIC PANEL, PLASMA Routine 12/20/2024 2:04 AM EST EXTRA TUBE LIGHT GREEN TOP Routine 12/19/2024 2:53 PM EST EXTRA TUBES Routine 12/19/2024 2:53 PM EST HEMOGLOBIN AND HEMATOCRIT, BLOOD Routine 12/19/2024 2:53 PM EST EXTRA TUBE LIGHT BLUE TOP Routine 12/19/2024 11:50 AM EST EXTRA TUBES Routine 12/19/2024 11:50 AM EST FOLATE, SERUM Routine 12/19/2024 11:50 AM EST FERRITIN, SERUM Routine 12/19/2024 11:50 AM EST VITAMIN B12, SERUM Routine 12/19/2024 11 :50 AM EST EXTRA TUBE LAVENDER TOP Routine 12/19/2024 9:26 AM EST EXTRA TUBES Routine 12/19/2024 9:26 AM EST HEMOGLOBIN AND HEMATOCRIT, BLOOD Routine 12/19/2024 9:26 AM EST IRON & TOTAL IRON BINDING CAPACITY, PLASMA (INCLUDES TRANSFERRIN) Add-On 12/19/2024 8:54 AM EST MAGNESIUM, PLASMA Pending Discharge 12/19/2024 8:54 AM EST CBC WITH AUTO DIFFERENTIAL Routine 12/19/2024 4:52 AM EST COMPREHENSIVE METABOLIC PANEL, PLASMA Routine 12/19/2024 4:52 AM EST HEMOGLOBIN AND HEMATOCRIT, BLOOD Routine 12/18/2024 3:38 PM EST COLONOSCOPY Routine 12/18/2024 11:24 AM EST Anemia, unspecified type EGD Routine 12/18/2024 11:24 AM EST Anemia, unspecified type PROTHROMBIN TIME(PT) / INR Routine 12/18/2024 4:47 AM EST CBC WITH AUTO DIFFERENTIAL Routine 12/18/2024 4:47 AM EST PHOSPHORUS, PLASMA Routine 12/18/2024 4: 47 AM EST MAGNESIUM, PLASMA Routine 12/18/2024 4:4 7 AM EST HEPATIC FUNCTION PANEL Routine 12/18/2024 4:47 AM EST BASIC METABOLIC PANEL, PLASMA Routine 12/18/2024 4:47 AM EST TRANSFUSE RED BLOOD CELLS Routine 12/17/2024 11:10 PM EST ECG ADULT Routine 12/17/2024 8:49 PM EST PREPARE RBC Routine 12/17/2024 8:25 PM EST HEMOGLOBIN AND HEMATOCRIT, BLOOD Routine 12/17/2024 5:51 PM EST TRANSFUSE RED BLOOD CELLS STAT 12/17/2024 11:01 AM EST PREPARE RBC STAT 12/17/2024 10:05 AM EST documented in this encounter Results * (ABNORMAL) CBC and Differential (12/24/2024 10:04 AM EST) WBC Count 3.15(L) 3.70 - 10.30 10*3/uL LAB HEMATOLOGY METHOD 12/24/2024 10:[address] [facility] RBC Count 2.82(L) 4.60 - 6.10 10*6/uL LAB HEMATOLOGY METHOD 12/24/2024 10:[address] [facility] HGB 8.7(L) 13.7 - 17.5 g/dL LAB HEMATOLOGY METHOD 12/24/2024 10:[address] [facility] HCT 29.0(L) 40.0 - 51.0 % LAB HEMATOLOGY METHOD 12/24/2024 10:[address] [facility] Platelet Count 66(L) 155 - 369 10*3/uL LAB HEMATOLOGY METHOD 12/24/2024 10:[address] [facility] MCV 103(H) 79 - 98 fL LAB HEMATOLOGY METHOD 12/24/2024 10:[address] [facility] MCH 30.9 26.0 - 32.0 pg LAB HEMATOLOGY METHOD 12/24/2024 10:[address] [facility] MCHC 30.0(L) 30.7 - 35.5 g/dL LAB HEMATOLOGY METHOD 12/24/2024 10:[address] [facility] RDW 21.2(H) 11.5 - 14.5 % LAB HEMATOLOGY METHOD 12/24/2024 10:[address] [facility] MPV 10.2 8.8 - 12.5 fL LAB HEMATOLOGY METHOD 12/24/2024 10:[address] [facility] nRBC 0.0 <=0.0 per 100 WBCs LAB HEMATOLOGY METHOD 12/24/2024 10:[address] [facility] Differential Type Automated LAB HEMATOLOGY METHOD 12/24/2024 10:[address] [facility] Neutrophils % 44 % LAB HEMATOLOGY METHOD 12/24/2024 10:[address] [facility] Lymphocytes % 33 % LAB HEMATOLOGY METHOD 12/24/2024 10:[address] [facility] Monocytes % 18 % LAB HEMATOLOGY METHOD 12/24/2024 10:[address] [facility] Eosinophils % 4 % LAB HEMATOLOGY METHOD 12/24/2024 10:[address] [facility] Basophils % 1 % LAB HEMATOLOGY METHOD 12/24/2024 10:[address] [facility] Immature Granulocytes % 0 % LAB HEMATOLOGY METHOD 12/24/2024 10:[address] [facility] Neutrophils Absolute 1.40(L) 1.60 - 6.10 10*3/uL LAB HEMATOLOGY METHOD 12/24/2024 10:[address] [facility] Lymphocytes Absolute 1.03(L) 1.20 - 3.90 10*3/uL LAB HEMATOLOGY METHOD 12/24/2024 10:[address] [facility] Monocytes Absolute 0.58 0.30 - 0.90 10*3/uL LAB HEMATOLOGY METHOD 12/24/2024 10:[address] [facility] Eosinophils Absolute 0.11 0.00 - 0.50 10*3/uL LAB HEMATOLOGY METHOD 12/24/2024 10:[address] [facility] Basophils Absolute 0.02 0.00 - 0.10 10*3/uL LAB HEMATOLOGY METHOD 12/24/2024 10:[address] [facility] Immature Granulocytes Absolute 0.01 0.00 - 0.06 10*3/uL LAB HEMATOLOGY METHOD 12/24/2024 10:[address] [facility] Blood Venous blood specimen / Unknown Venipuncture / Unknown 12/24/2024 10:04 AM EST 12/24/2024 10:[address] [facility] - 12/24/2024 10:51 AM EST Therapeutic decision making should be based on absolute values, rather than percentages. us Leroy Aponte MD LAB BLOOD ORDERABLES Final Resul t [facility] [address] [place] [address] * (ABNORMAL) Hemoglobin and Hematocrit, Blood (12/20/2024 9:57 AM EST) HGB 8.0(L) 13.7 - 17.5 g/dL LAB HEMATOLOGY METHOD 12/20/2024 10:[address] [facility] HCT 25.6(L) 40.0 - 51.0 % LAB HEMATOLOGY METHOD 12/20/2024 10:[address] [facility] Blood Venous blood specimen / Unknown Venipuncture / Unknown 12/20/2024 9:57 AM EST 12/20/2024 10:00 AM EST us Leroy Aponte MD LAB BLOOD ORDERABLES Final Resul t Performing Organization Address City/[facility]/ZIP Co de Phone Number [facility] [address] [place] [address] * Phosphorus (12/20/2024 8:32 AM EST) Phosphorus, Plasma 3.7 2.5 - 4.5 mg/dL 12/20/2024 8:[address] [facility] Blood Venous blood specimen / Unknown Venipuncture / Unknown 12/20/2024 8:32 AM EST 12/20/2024 8:36 AM EST us Leroy Aponte MD LAB BLOOD ORDERABLES Final Resul t Performing Organization Address [facility] [place] [address] * (ABNORMAL) Magnesium (12/20/2024 8:32 AM EST) Magnesium, Plasma 1.4(L) 1.9 - 2.4 mg/dL 12/20/2024 8:[address] [facility] Blood Venous blood specimen / Unknown Venipuncture / Unknown 12/20/2024 8:32 AM EST 12/20/2024 8:36 AM EST us Leroy Aponte MD LAB BLOOD ORDERABLES Final Resul t Performing Organization Address [facility] [place] [address] * Transfuse RBC (12/20/2024 7:17 AM EST) us Leroy Aponte MD BLOOD TRANSFUSION ORDERABLES Fin al Result * Prepare Leukocyte Reduced RBC: 1 Units, Leukocyte reduced (CMV reduced risk) (12/20/2024 4:21 AM EST) Product Code [id number] BLOO D BANK Dispense Status Transfused BLOOD BANK Blood Expiration Date [id number] BLOOD BANK Unit Number [id number] B LOOD BANK Product Blood Type 0600 BLOOD BANK Blood Type A- [facility] BLOOD BANK Crossmatch Compatible BLOOD BANK Other Leroy Aponte MD BLOOD BANK PRODUCT ORDERABLES Fi nal Result Performing Organization Address [facility]/ZIP Co de Phone Number BLOOD BANK [address] * (ABNORMAL) Prothrombin Time/INR (12/20/2024 2:04 AM EST) Prothrombin Time 27.7(H) 12.0 - 14.3 sec LAB COAGULATION METHOD 12/20/2024 3:[address] [facility] INR 2.6(H) 0.9 - 1.1 LAB COAGULATION METHOD 12/20/2024 3:[address] [facility] Blood Venous blood specimen / Unknown Venipuncture / Unknown 12/20/2024 2:04 AM EST 12/20/2024 2:[address] [facility] - 12/20/2024 3:40 AM EST OPTIMAL INR RANGES FOR PATIENT ON ORAL ANTICOAGULANT THERAPY Prevention of venous thromboembolism INR 2.0 to 3.0 In patients with heart disease: Atrial fibrillation INR 2.0 to 3.0 Valvular heart disease INR 2.0 to 3.0 Tissue heart valves INR 2.0 to 3.0 Mechanical prosthetic valves INR 2.5 to 3.5 Prevention of recurrent SC INR 2.5 to 3.5 Leroy Aponte MD LAB BLOOD ORDERABLES Final Resul t Performing Organization Address [facility] Co de Phone Number [facility] [address] [place] [address] * (ABNORMAL) Comprehensive metabolic panel (12/20/2024 2:04 AM EST) Glucose, Plasma 98 74 - 99 mg/dL 12/20/2024 3:[address] [facility] BUN, Plasma 12 7 - 21 mg/dL 12/20/2024 3:[address] [facility] Creatinine, Plasma 0.82 0.70 - 1.20 mg/dL 12/20/2024 3:[address] [facility] BUN/Creatinine Ratio 15 12/20/2024 3:[address] [facility] Sodium, Plasma 137 136 - 145 mmol/L 12/20/2024 3:[address] [facility] Potassium, Plasma 3.8 3.6 - 4.9 mmol/L 12/20/2024 3:[address] [facility] Chloride, Plasma 105 97 - 107 mmol/L 12/20/2024 3:[address] [facility] CO2, Plasma 23 22 - 29 mmol/L 12/20/2024 3:[address] [facility] Anion Gap 9 6 - 16 mmol/L 12/20/2024 3:[address] [facility] Total Calcium, Plasma 7.7(L) 8.9 - 10.2 mg/dL 12/20/2024 3:[address] [facility] Total Protein 5.0(L) 6.3 - 7.9 g/dL 12/20/2024 3:[address] [facility] Albumin, Plasma 2.4(L) 3.5 - 5.2 g/dL 12/20/2024 3:[address] [facility] AST, Plasma 51(H) 10 - 50 U/L 12/20/2024 3:[address] [facility] ALT, Plasma 29 10 - 50 U/L 12/20/2024 3:[address] [facility] Alkaline Phosphatase, Plasma 135(H) 40 - 115 U/L 12/20/2024 3:[address] [facility] Total Bilirubin, Plasma 11.9(H) 0.2 - 1.1 mg/dL 12/20/2024 3:[address] [facility] eGFRcr 110.4 mL/min/1.7 3m*2 12/20/2024 3:[address] [facility] Comment:Reported eGFRcr in m L/min/1.73m2 is based the CKD-EPI 2020 equation that does not use a race coefficient. Blood Venous blood specimen / Unknown Venipuncture / Unknown 12/20/2024 2:04 AM EST 12/20/2024 2:56 AM EST us Leroy Aponte MD LAB BLOOD ORDERABLES Final Resul t [facility] [address] [place] [address] * (ABNORMAL) CBC W/O Differential (12/20/2024 2:04 AM EST) WBC Count 3.79 3.70 - 10.30 10*3/uL LAB HEMATOLOGY METHOD 12/20/2024 3:[address] [facility] RBC Count 2.18(L) 4.60 - 6.10 10*6/uL LAB HEMATOLOGY METHOD 12/20/2024 3:[address] [facility] HGB 6.9(L) 13.7 - 17.5 g/dL LAB HEMATOLOGY METHOD 12/20/2024 3:[address] [facility] HCT 22.0(L) 40.0 - 51.0 % LAB HEMATOLOGY METHOD 12/20/2024 3:[address] [facility] Platelet Count 66(L) 155 - 369 10*3/uL LAB HEMATOLOGY METHOD 12/20/2024 3:[address] [facility] MCV 101(H) 79 - 98 fL LAB HEMATOLOGY METHOD 12/20/2024 3:[address] [facility] MCH 31.7 26.0 - 32.0 pg LAB HEMATOLOGY METHOD 12/20/2024 3:[address] [facility] MCHC 31.4 30.7 - 35.5 g/dL LAB HEMATOLOGY METHOD 12/20/2024 3:[address] [facility] RDW 19.7(H) 11.5 - 14.5 % LAB HEMATOLOGY METHOD 12/20/2024 3:[address] [facility] MPV 10.9 8.8 - 12.5 fL LAB HEMATOLOGY METHOD 12/20/2024 3:[address] [facility] nRBC 0.0 <=0.0 per 100 WBCs LAB HEMATOLOGY METHOD 12/20/2024 3:[address] [facility] Blood Venous blood specimen / Unknown Venipuncture / Unknown 12/20/2024 2:04 AM EST 12/20/2024 2:56 AM EST Leroy Aponte MD LAB BLOOD ORDERABLES Final Resul t [facility] [address] [place] [address] * Light Green Top (12/19/2024 2:53 PM EST) Extra Hold for add-ons 12/19/2024 5:[address] [facility] Comment:Auto resulted. Blood Venous blood specimen / Unknown 12/19/2024 2:53 PM EST 12/19/2024 2:59 PM EST us Leroy Aponte MD LAB BLOOD ORDERABLES Final Resul t [facility] [address] [place] [address] * (ABNORMAL) Hemoglobin and Hematocrit, Blood (12/19/2024 2:53 PM EST) HGB 7.2(L) 13.7 - 17.5 g/dL LAB HEMATOLOGY METHOD 12/19/2024 3:[address] [facility] HCT 23.7(L) 40.0 - 51.0 % LAB HEMATOLOGY METHOD 12/19/2024 3:[address] [facility] Blood Venous blood specimen / Unknown Venipuncture / Unknown 12/19/2024 2:53 PM EST 12/19/2024 3:08 PM EST us Leroy Aponte MD LAB BLOOD ORDERABLES Final Resul t Performing Organization Address City/[facility]/ZIP Co de Phone Number [facility] [address] [place] [address] * Light Blue Top (12/19/2024 11:50 AM EST) Extra Hold for add-ons 12/19/2024 2:[address] [facility] Comment:Auto resulted. Blood Venous blood specimen / Unknown 12/19/2024 11:50 AM EST 12/19/2024 11:56 AM EST us Leroy Aponte MD LAB BLOOD ORDERABLES Final Resul t Performing Organization Address City/[facility]/ZIP Co de Phone Number [facility] [address] [place] [address] * Ferritin (12/19/2024 11:50 AM EST) Ferritin, Serum 42 20 - 400 ng/mL 12/19/2024 12:[address] [facility] Blood Venous blood specimen / Unknown Venipuncture / Unknown 12/19/2024 11:50 AM EST 12/19/2024 12:13 PM EST us Leroy Aponte MD LAB BLOOD ORDERABLES Final Resul t [facility] [address] [place] [address] * Folate (12/19/2024 11:50 AM EST) Pathologist [facility] Folate, Serum 18.3 >4.6 ng/mL 12/19/2024 12:[address] [facility] Blood Venous blood specimen / Unknown Venipuncture / Unknown 12/19/2024 11:50 AM EST 12/19/2024 12:13 PM EST us Leroy Aponte MD LAB BLOOD ORDERABLES Final Resul t Performing Organization Address City/[facility]/ZIP Co de Phone Number [facility] [address] [place] [address] * (ABNORMAL) Vitamin B12 (12/19/2024 11:50 AM EST) Pathologist [facility] Vitamin B12, Serum 1,916(H) 210 - 1,033 pg/mL 12/19/2024 12:[address] [facility] Blood Venous blood specimen / Unknown Venipuncture / Unknown 12/19/2024 11:50 AM EST 12/19/2024 12:13 PM EST us Leroy Aponte MD LAB BLOOD ORDERABLES Final Resul t Performing Organization Address City/[facility]/ZIP Co de Phone Number [facility] [address] [place] [address] * (ABNORMAL) Hemoglobin and Hematocrit, Blood (12/19/2024 9:26 AM EST) [facility] HGB 7.0(L) 13.7 - 17.5 g/dL LAB HEMATOLOGY METHOD 12/19/2024 12:[address] [facility] HCT 22.3(L) 40.0 - 51.0 % LAB HEMATOLOGY METHOD 12/19/2024 12:[address] [facility] Blood Venous blood specimen / Unknown Venipuncture / Unknown 12/19/2024 9:26 AM EST 12/19/2024 9:26 AM EST us Leroy Aponte MD LAB BLOOD ORDERABLES Final Resul t [facility] [address] [place] [address] * Lavender Top (12/19/2024 9:26 AM EST) Extra Hold for add-ons 12/19/2024 12:[address] [facility] Comment:Auto resulted. Blood Venous blood specimen / Unknown Venipuncture / Unknown 12/19/2024 9:26 AM EST 12/19/2024 9:26 AM EST us Leroy Aponte MD LAB BLOOD ORDERABLES Final Resul t Performing Organization Address [facility] Co de Phone Number [facility] [address] [place] [address] * (ABNORMAL) Iron & Total Iron Binding Capacity, Plasma (Includes Transferrin) (12/19/2024 8:54 AM EST) Iron, Plasma 38(L) 50 - 170 ug/dL 12/19/2024 12:[address] [facility] Transferrin, Plasma 184(L) 200 - 360 mg/dL 12/19/2024 12:[address] [facility] Total Iron Binding Capacity, Plasma 230(L) 240 - 450 ug/mL 12/19/2024 12:[address] [facility] Transferrin Saturation 17 14 - 50 % 12/19/2024 12:[address] [facility] Blood Venous blood specimen / Unknown Venipuncture / Unknown 12/19/2024 8:54 AM EST 12/19/2024 9:32 AM EST us Leroy Aponte MD LAB BLOOD ORDERABLES Final Resul t Performing Organization Address City/[facility]/ZIP Co de Phone Number [facility] [address] [place] [address] * (ABNORMAL) Magnesium (12/19/2024 8:54 AM EST) Magnesium, Plasma 1.5(L) 1.9 - 2.4 mg/dL 12/19/2024 10:[address] [facility] Blood Venous blood specimen / Unknown Venipuncture / Unknown 12/19/2024 8:54 AM EST 12/19/2024 9:32 AM EST us Leroy Aponte MD LAB BLOOD ORDERABLES Final Resul t Performing Organization Address [facility] Phone Number [facility] [address] [place] [address] * (ABNORMAL) Comprehensive metabolic panel (12/19/2024 4:52 AM EST) Glucose, Plasma 107(H) 74 - 99 mg/dL 12/19/2024 6:[address] [facility] BUN, Plasma 15 7 - 21 mg/dL 12/19/2024 6:[address] [facility] Creatinine, Plasma 0.88 0.70 - 1.20 mg/dL 12/19/2024 6:[address] [facility] BUN/Creatinine Ratio 17 12/19/2024 6:[address] [facility] Sodium, Plasma 135(L) 136 - 145 mmol/L 12/19/2024 6:[address] [facility] Potassium, Plasma 4.4 3.6 - 4.9 mmol/L 12/19/2024 6:[address] [facility] Chloride, Plasma 107 97 - 107 mmol/L 12/19/2024 6:[address] [facility] CO2, Plasma 22 22 - 29 mmol/L 12/19/2024 6:[address] [facility] Anion Gap 6 6 - 16 mmol/L 12/19/2024 6:[address] [facility] Total Calcium, Plasma 7.9(L) 8.9 - 10.2 mg/dL 12/19/2024 6:[address] [facility] Total Protein 5.3(L) 6.3 - 7.9 g/dL 12/19/2024 6:[address] [facility] Albumin, Plasma 2.6(L) 3.5 - 5.2 g/dL 12/19/2024 6:[address] [facility] AST, Plasma 62(H) 10 - 50 U/L 12/19/2024 6:[address] [facility] ALT, Plasma 30 10 - 50 U/L 12/19/2024 6:[address] [facility] Alkaline Phosphatase, Plasma 122(H) 40 - 115 U/L 12/19/2024 6:[address] [facility] Total Bilirubin, Plasma 13.6(H) 0.2 - 1.1 mg/dL 12/19/2024 6:[address] [facility] eGFRcr 108.1 mL/min/1.7 3m*2 12/19/2024 6:[address] [facility] Comment:Reported eGFRcr in m L/min/1.73m2 is based the CKD-EPI 2020 equation that does not use a race coefficient. Blood Venous blood specimen / Unknown Venipuncture / Unknown 12/19/2024 4:52 AM EST 12/19/2024 5:44 AM EST us Leroy Aponte MD LAB BLOOD ORDERABLES Final Resul t [facility] [address] [place] [address] * (ABNORMAL) CBC and Differential (12/19/2024 4:52 AM EST) WBC Count 3.47(L) 3.70 - 10.30 10*3/uL LAB HEMATOLOGY METHOD 12/19/2024 5:[address] [facility] RBC Count 2.32(L) 4.60 - 6.10 10*6/uL LAB HEMATOLOGY METHOD 12/19/2024 5:[address] [facility] HGB 7.3(L) 13.7 - 17.5 g/dL LAB HEMATOLOGY METHOD 12/19/2024 5:[address] [facility] HCT 23.3(L) 40.0 - 51.0 % LAB HEMATOLOGY METHOD 12/19/2024 5:[address] [facility] Platelet Count 71(L) 155 - 369 10*3/uL LAB HEMATOLOGY METHOD 12/19/2024 5:[address] [facility] MCV 100(H) 79 - 98 fL LAB HEMATOLOGY METHOD 12/19/2024 5:[address] [facility] MCH 31.5 26.0 - 32.0 pg LAB HEMATOLOGY METHOD 12/19/2024 5:[address] [facility] MCHC 31.3 30.7 - 35.5 g/dL LAB HEMATOLOGY METHOD 12/19/2024 5:54 AM [facility] RDW 19.7(H) 11.5 - 14.5 % LAB HEMATOLOGY METHOD 12/19/2024 5:[address] [facility] MPV 10.0 8.8 - 12.5 fL LAB HEMATOLOGY METHOD 12/19/2024 5:54 AM [facility] nRBC 0.0 <=0.0 per 100 WBCs LAB HEMATOLOGY METHOD 12/19/2024 5:[address] [facility] Differential Type Automated LAB HEMATOLOGY METHOD 12/19/2024 5:54 AM [facility] Neutrophils % 48 % LAB HEMATOLOGY METHOD 12/19/2024 5:54 AM [facility] Lymphocytes % 30 % LAB HEMATOLOGY METHOD 12/19/2024 5:[address] [facility] Monocytes % 17 % LAB HEMATOLOGY METHOD 12/19/2024 5:[address] [facility] Eosinophils % 3 % LAB HEMATOLOGY METHOD 12/19/2024 5:54 AM [facility] Basophils % 1 % LAB HEMATOLOGY METHOD 12/19/2024 5:[address] [facility] Immature Granulocytes % 1 % LAB HEMATOLOGY METHOD 12/19/2024 5:[address] [facility] Neutrophils Absolute 1.68 1.60 - 6.10 10*3/uL LAB HEMATOLOGY METHOD 12/19/2024 5:[address] [facility] Lymphocytes Absolute 1.04(L) 1.20 - 3.90 10*3/uL LAB HEMATOLOGY METHOD 12/19/2024 5:[address] [facility] Monocytes Absolute 0.59 0.30 - 0.90 10*3/uL LAB HEMATOLOGY METHOD 12/19/2024 5:[address] [facility] Eosinophils Absolute 0.11 0.00 - 0.50 10*3/uL LAB HEMATOLOGY METHOD 12/19/2024 5:[address] [facility] Basophils Absolute 0.03 0.00 - 0.10 10*3/uL LAB HEMATOLOGY METHOD 12/19/2024 5:[address] [facility] Immature Granulocytes Absolute 0.02 0.00 - 0.06 10*3/uL LAB HEMATOLOGY METHOD 12/19/2024 5:[address] [facility] Blood Venous blood specimen / Unknown Venipuncture / Unknown 12/19/2024 4:52 AM EST 12/19/2024 5:[address] [facility] - 12/19/2024 5:54 AM EST Therapeutic decision making should be based on absolute values, rather than percentages. us Leroy Aponte MD LAB BLOOD ORDERABLES Final Resul t [facility] [address] [place] [address] * (ABNORMAL) Hemoglobin and Hematocrit, Blood (12/18/2024 3:38 PM EST) [facility] Signature HGB 8.0(L) 13.7 - 17.5 g/dL LAB HEMATOLOGY METHOD 12/18/2024 3:[address] [facility] HCT 25.5(L) 40.0 - 51.0 % LAB HEMATOLOGY METHOD 12/18/2024 3:[address] [facility] Blood Venous blood specimen / Unknown Venipuncture / Unknown 12/18/2024 3:38 PM EST 12/18/2024 3:50 PM EST us Leroy Aponte MD LAB BLOOD ORDERABLES Final Resul t [facility] [address] [place] [address] * PRIETO ESPINOSA; 12/18/2024 (12/18/2024 11:24 AM EST) Anatomical Region Laterality Modality Endoscopy Narrative 12/18/2024 1:03 PM EST Table formatting from the original result was not included. Impression: The upper third of the esophagus and middle third of the esophagus appeared normal. Single small grade I varix in the lower third of the esophagus. Mild and diffuse portal hypertensive gastropathy in the cardia, fundus of the stomach and body of the stomach. 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 The duodenal bulb, 1st part of the duodenum and 2nd part of the duodenum appeared normal. Recommendations Start PO iron supplement if not already taking Resume PO diet Discontinue octreotide and ceftriaxone Proceed with same day colonoscopy Results and recommendations discussed w/ pt and primary team Indication Anemia, unspecified type Medications See anesthesia record for anesthesia administered medications. Staff Staff Role Luis Herrera MD Fellow Félix Muñiz CRNA CRNA [place], Jolynn Endo Specialty Finishing Utility Person Ritu Espinoza RN Endo Nurse Liu East MD Anesthesiologist Prieto Dillon, Proceduralist Mirella Deleon Endo Specialty Finishing Utility Person Ceasar Lofton RN Endo Nurse Preprocedure A history and physical has been performed, and patient medication allergies have been reviewed. The patient's tolerance of previous anesthesia has been reviewed. The risks and benefits of the procedure and the sedation options and risks were discussed with the patient. All questions were answered and informed consent obtained. Details of the Procedure The patient underwent monitored anesthesia care, which was administered by an anesthesia professional. The patient's blood pressure, heart rate, level of consciousness, oxygen saturation and respirations were monitored throughout the procedure. The scope was introduced into the mouth through a bite block and advanced to the second part of the duodenum. Insufflated with carbon dioxide. Retroflexion was performed in the cardia. The patient experienced no blood loss. The procedure was not difficult. The patient tolerated the procedure well. There were no apparent adverse events. Attestation I was present for the entire procedure Specimens No specimens were documented in this log. Findings The upper third of the esophagus and middle third of the esophagus appeared normal. Single small grade I varix in the lower third of the esophagus. Mild and diffuse portal hypertensive gastropathy in the cardia, fundus of the stomach and body of the stomach. 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 The duodenal bulb, 1st part of the duodenum and 2nd part of the duodenum appeared normal. us Leroy Aponte MD GI PROCEDURE ORDERABLES Final Re sult * Colonoscopy (12/18/2024 11:24 AM EST) Anatomical Region Laterality Modality Endoscopy Narrative 12/18/2024 11:20 AM EST Table formatting from the original result was not included. Impression: Pediatric colonoscope was able to advanced till transverse colon only. Unable to advance further due to looping, edematous colon. Procedure had to be aborted as there was no adult colonoscope available. Recommendations Other - Return to floor for ongoing care - need repeat colonoscopy as an outpatient for listing purposes. - recommend repeat colonoscopy with adult colonoscope Indication Order Indication: Anemia, unspecified type Medications See anesthesia record for anesthesia administered medications. Staff Staff Role Luis Herrera MD Fellow Félix Muñiz CRNA ZINC MINER Fatou Waggoner Endo Specialty Finishing Utility Person Ritu Espinoza RN Endo Nurse Liu East MD Anesthesiologist Prieto Dillon MD Proceduralist Mirella Deleon Endo Specialty Finishing Utility Person Ceasar Lofton RN Endo Nurse Preprocedure A history and physical has been performed, and patient medication allergies have been reviewed. The patient's tolerance of previous anesthesia has been reviewed. The risks and benefits of the procedure and the sedation options and risks were discussed with the patient. All questions were answered and informed consent obtained. Details of the Procedure The patient underwent monitored anesthesia care, which was administered by an anesthesia professional. The patient's blood pressure, heart rate, level of consciousness, respirations and oxygen saturation were monitored throughout the procedure. A digital rectal exam was performed. A perianal exam was performed. The scope was introduced through the anus and advanced to the transverse colon. The quality of bowel preparation was evaluated using the [place] Bowel Preparation Scale with scores of: right colon = not assessed, transverse colon = 1, left colon = 2. The total BBPS score was 3. Bowel prep was not adequate. The patient experienced no blood loss. The procedure was difficult due to loops in the digestive tract. In response to procedure difficulty, abdominal pressure was applied, loop reduction was employed and water immersion technique was employed. The patient tolerated the procedure well. There were no apparent adverse events. Pediatric colonoscope was able to advanced till transverse colon only. Unable to advance further due to looping, edematous colon. Procedure had to be aborted as there was no adult colonoscope available. Attestation I personally performed the entire procedure Events Procedure Events Event Event Time Specimens No specimens were documented in this log. Findings Pediatric colonoscope was able to advanced till transverse colon only. Unable to advance further due to looping, edematous colon. Procedure had to be aborted as there was no adult colonoscope available. us Leroy Aponte MD GI PROCEDURE ORDERABLES Final Re sult * (ABNORMAL) CBC and Differential (12/18/2024 4:47 AM EST) WBC Count 4.24 3.70 - 10.30 10*3/uL LAB HEMATOLOGY METHOD 12/18/2024 5:[address] [facility] RBC Count 2.59(L) 4.60 - 6.10 10*6/uL LAB HEMATOLOGY METHOD 12/18/2024 5:13 AM [facility] HGB 8.1(L) 13.7 - 17.5 g/dL LAB HEMATOLOGY METHOD 12/18/2024 5:13 AM [facility] HCT 26.2(L) 40.0 - 51.0 % LAB HEMATOLOGY METHOD 12/18/2024 5:13 AM [facility] Platelet Count 69(L) 155 - 369 10*3/uL LAB HEMATOLOGY METHOD 12/18/2024 5:13 AM [facility] MCV 101(H) 79 - 98 fL LAB HEMATOLOGY METHOD 12/18/2024 5:13 AM [facility] Comment:Results inconsistent with previous lab findings. MCH 31.3 26.0 - 32.0 pg LAB HEMATOLOGY METHOD 12/18/2024 5:13 AM [facility] MCHC 30.9 30.7 - 35.5 g/dL LAB HEMATOLOGY METHOD 12/18/2024 5:13 AM [facility] RDW 19.9(H) 11.5 - 14.5 % LAB HEMATOLOGY METHOD 12/18/2024 5:13 AM [facility] MPV 9.9 8.8 - 12.5 fL LAB HEMATOLOGY METHOD 12/18/2024 5:[address] [facility] nRBC 0.0 <=0.0 per 100 WBCs LAB HEMATOLOGY METHOD 12/18/2024 5:[address] [facility] Differential Type Automated LAB HEMATOLOGY METHOD 12/18/2024 5:13 AM [facility] Neutrophils % 50 % LAB HEMATOLOGY METHOD 12/18/2024 5:13 AM [facility] Lymphocytes % 28 % LAB HEMATOLOGY METHOD 12/18/2024 5:13 AM [facility] Monocytes % 16 % LAB HEMATOLOGY METHOD 12/18/2024 5:13 AM [facility] Eosinophils % 5 % LAB HEMATOLOGY METHOD 12/18/2024 5:13 AM [facility] Basophils % 1 % LAB HEMATOLOGY METHOD 12/18/2024 5:13 AM [facility] Immature Granulocytes % 0 % LAB HEMATOLOGY METHOD 12/18/2024 5:13 AM [facility] Neutrophils Absolute 2.15 1.60 - 6.10 10*3/uL LAB HEMATOLOGY METHOD 12/18/2024 5:13 AM [facility] Lymphocytes Absolute 1.18(L) 1.20 - 3.90 10*3/uL LAB HEMATOLOGY METHOD 12/18/2024 5:13 AM [facility] Monocytes Absolute 0.68 0.30 - 0.90 10*3/uL LAB HEMATOLOGY METHOD 12/18/2024 5:13 AM [facility] Eosinophils Absolute 0.19 0.00 - 0.50 10*3/uL LAB HEMATOLOGY METHOD 12/18/2024 5:13 AM [facility] Basophils Absolute 0.03 0.00 - 0.10 10*3/uL LAB HEMATOLOGY METHOD 12/18/2024 5:13 AM [facility] Immature Granulocytes Absolute 0.01 0.00 - 0.06 10*3/uL LAB HEMATOLOGY METHOD 12/18/2024 5:[address] [facility] Blood Venous blood specimen / Unknown Venipuncture / Unknown 12/18/2024 4:47 AM EST 12/18/2024 4:[address] [facility] - 12/18/2024 5:13 AM EST Therapeutic decision making should be based on absolute values, rather than percentages. us Leroy Aponte MD LAB BLOOD ORDERABLES Final Resul t [facility] [address] [place] [address] * (ABNORMAL) Basic Metabolic Panel, Plasma (12/18/2024 4:47 AM EST) Glucose, Plasma 85 74 - 99 mg/dL 12/18/2024 5:[address] [facility] BUN, Plasma 17 7 - 21 mg/dL 12/18/2024 5:[address] [facility] Creatinine, Plasma 0.81 0.70 - 1.20 mg/dL 12/18/2024 5:[address] [facility] Comment: Icteric specimen. Result may be falsely decreased. Interpret result in the context of the patient's condition and other laboratory results. BUN/Creatinine Ratio 21 12/18/2024 5:[address] [facility] Sodium, Plasma 132(L) 136 - 145 mmol/L 12/18/2024 5:[address] [facility] Potassium, Plasma 4.6 3.6 - 4.9 mmol/L 12/18/2024 5:[address] [facility] Chloride, Plasma 104 97 - 107 mmol/L 12/18/2024 5:[address] [facility] CO2, Plasma 20(L) 22 - 29 mmol/L 12/18/2024 5:[address] [facility] Anion Gap 8 6 - 16 mmol/L 12/18/2024 5:[address] [facility] Total Calcium, Plasma 8.4(L) 8.9 - 10.2 mg/dL 12/18/2024 5:[address] [facility] eGFRcr 110.8 mL/min/1.7 3m*2 12/18/2024 5:[address] [facility] Comment:Reported eGFRcr in m L/min/1.73m2 is based the CKD-EPI 2020 equation that does not use a race coefficient. Blood Venous blood specimen / Unknown Venipuncture / Unknown 12/18/2024 4:47 AM EST 12/18/2024 4:56 AM EST us Leroy Aponte MD LAB BLOOD ORDERABLES Final Resul t Performing Organization Address [facility] Co de Phone Number [facility] [address] [place] [address] * Phosphorus, Plasma (12/18/2024 4:47 AM EST) Phosphorus, Plasma 3.7 2.5 - 4.5 mg/dL 12/18/2024 5:[address] [facility] Blood Venous blood specimen / Unknown Venipuncture / Unknown 12/18/2024 4:47 AM EST 12/18/2024 4:56 AM EST us Leroy Aponte MD LAB BLOOD ORDERABLES Final Resul t Performing Organization Address [facility] Phone Number [facility] [address] [place] [address] * (ABNORMAL) Hepatic function panel (12/18/2024 4:47 AM EST) Direct Bilirubin, Plasma 8.1(H) <=0.3 mg/dL 12/18/2024 5:[address] [facility] Alkaline Phosphatase, Plasma 111 40 - 115 U/L 12/18/2024 5:[address] [facility] Total Bilirubin, Plasma 15.9(H) 0.2 - 1.1 mg/dL 12/18/2024 5:[address] [facility] Albumin, Plasma 2.8(L) 3.5 - 5.2 g/dL 12/18/2024 5:[address] [facility] Total Protein 5.9(L) 6.3 - 7.9 g/dL 12/18/2024 5:[address] [facility] Comment: Icteric specimen. Result may be affected, interpret result in the context of the patient's condition and other laboratory results. ALT, Plasma 35 10 - 50 U/L 12/18/2024 5:[address] [facility] AST, Plasma 76(H) 10 - 50 U/L 12/18/2024 5:[address] [facility] Blood Venous blood specimen / Unknown Venipuncture / Unknown 12/18/2024 4:47 AM EST 12/18/2024 4:56 AM EST us Leroy Aponte MD LAB BLOOD ORDERABLES Final Resul t Performing Organization Address [facility] Co de Phone Number [facility] [address] [place] [address] * (ABNORMAL) Prothrombin Time/INR (12/18/2024 4:47 AM EST) Prothrombin Time 26.0(H) 12.0 - 14.3 sec LAB COAGULATION METHOD 12/18/2024 5:[address] [facility] INR 2.4(H) 0.9 - 1.1 LAB COAGULATION METHOD 12/18/2024 5:[address] [facility] Blood Venous blood specimen / Unknown Venipuncture / Unknown 12/18/2024 4:47 AM EST 12/18/2024 4:[address] [facility] - 12/18/2024 5:20 AM EST OPTIMAL INR RANGES FOR PATIENT ON ORAL ANTICOAGULANT THERAPY Prevention of venous thromboembolism INR 2.0 to 3.0 In patients with heart disease: Atrial fibrillation INR 2.0 to 3.0 Valvular heart disease INR 2.0 to 3.0 Tissue heart valves INR 2.0 to 3.0 Mechanical prosthetic valves INR 2.5 to 3.5 Prevention of recurrent SC INR 2.5 to 3.5 us Leroy Aponte MD LAB BLOOD ORDERABLES Final Resul t Performing Organization Address City/[facility]/ZIP Co de Phone Number [facility] [address] [place] [address] * (ABNORMAL) Magnesium, Plasma (12/18/2024 4:47 AM EST) Magnesium, Plasma 1.6(L) 1.9 - 2.4 mg/dL 12/18/2024 5:[address] [facility] Blood Venous blood specimen / Unknown Venipuncture / Unknown 12/18/2024 4:47 AM EST 12/18/2024 4:56 AM EST us Leroy Aponte MD LAB BLOOD ORDERABLES Final Resul t [facility] [address] [place] [address] * Transfuse RBC (12/18/2024 2:02 AM EST) us Leroy Aponte MD BLOOD TRANSFUSION ORDERABLES Fin al Result * Transfuse RBC: 1 Units (12/18/2024 2:02 AM EST) us Leroy Aponte MD BLOOD TRANSFUSION ORDERABLES Fin al Result * ECG Adult (12/17/2024 8:49 PM EST) EKG DIAGNOSIS CLASS Abnormal MUSE ECG Ventricular Rate 66 BPM MUSE ECG Atrial Rate 66 BPM MUSE ECG MO Interval 178 ms MUSE ECG QRSD Interval 88 ms MUSE ECG QT Interval 474 ms MUSE ECG QTC Interval 496 ms MUSE ECG P [place] 45 degrees MUSE ECG R [place] 29 degrees MUSE ECG T Wave [place] 19 degrees MUSE ECG Diagnosis Normal sinus rhythm MUSE ECG Diagnosis QTcB >= 480 msec MUSE ECG Diagnosis Abnormal ECG MUSE ECG Diagnosis MUSE ECG Diagnosis Confirmed by Jeff Worthington ([id number]) on 12/18/2024 10:06:13 AM MUSE ECG 12/17/2024 8:49 PM EST 12/18/2024 10:06 AM EST us Leroy Aponte MD ECG ORDERABLES Final Result MUSE ECG * Prepare Leukocyte Reduced RBC: 1 Units (12/17/2024 8:25 PM EST) Product Code [id number] CH BLOO D BANK Dispense Status Transfused BLOOD BANK Blood Expiration Date BLOOD BANK Unit Number [id number] CH B LOOD BANK Product Blood Type 0600 BLOOD BANK Blood Type A- CH BLOOD BANK Crossmatch Compatible BLOOD BANK Other Leroy Aponte MD BLOOD BANK PRODUCT ORDERABLES Fi nal Result Performing Organization Address [facility] Co de Phone Number BLOOD BANK [address] [place] [address] * (ABNORMAL) Hemoglobin and Hematocrit, Blood (12/17/2024 5:51 PM EST) HGB 6.8(L) 13.7 - 17.5 g/dL LAB HEMATOLOGY METHOD 12/17/2024 6:[address] [facility] HCT 22.2(L) 40.0 - 51.0 % LAB HEMATOLOGY METHOD 12/17/2024 6:[address] [facility] Blood Venous blood specimen / Unknown Venipuncture / Unknown 12/17/2024 5:51 PM EST 12/17/2024 6:04 PM EST us Leroy Aponte MD LAB BLOOD ORDERABLES Final Resul t Performing Organization Address City/[facility] Co de Phone Number [facility] [address] [place] [address] * Transfuse RBC (12/17/2024 1:08 PM EST) us Amber BEE BLOOD TRANSFUSION ORDERABLES F inal Result * Transfuse RBC: 1 Units (12/17/2024 1:08 PM EST) us Amber BEE BLOOD TRANSFUSION ORDERABLES F inal Result * Prepare Leukocyte Reduced RBC: 1 Units (12/17/2024 10:05 AM EST) Product Code F5356C04 [facility] BLOO D BANK Dispense Status Transfused BLOOD BANK Blood Expiration Date [id number] BLOOD BANK Unit Number [id number] CH B LOOD BANK Product Blood Type 0600 BLOOD BANK Blood Type A- CH BLOOD BANK Crossmatch Compatible BLOOD BANK Other us Amber BEE BLOOD BANK PRODUCT ORDERABLES Final Result BLOOD BANK [address] [place] [address], documented in this encounter Visit Diagnoses Diagnosis Alcoholic cirrhosis, unspecified whether ascites present Symptomatic anemia Anemia, unspecified type Alcohol abuse, uncomplicated Alcohol use disorder, severe, dependence (CMS/HCC) Alcoholic hepatitis with ascites Decompensation of cirrhosis of liver (CMS/HCC) Depressive disorder Depressive disorder, not elsewhere classified Essential (primary) hypertension Unspecified essential hypertension Generalized anxiety disorder Mild episode of recurrent major depressive disorder (CMS/HCC) Muscle weakness (generalized) Other cervical disc displacement, high cervical region Chronic pain of left knee Primary insomnia Persistent disorder of initiating or maintaining sleep Spontaneous bacterial peritonitis Tobacco use disorder, continuous Tobacco use disorder Unspecified jaundice documented in this encounter Admitting Diagnoses Diagnosis Anemia Unspecified anemia documented in this encounter Administered Medications Inactive Administered Medications - up to 3 most recent administrations Medication Order MAR Action Action Date Dose Rate Site buPROPion SR (Wellbutrin SR) 12 hr tablet 150 mg 150 mg, Oral, 2 times daily, First dose on Sun12/17/24 at 2100, Until Discontinued, Routine Given 12/20/2024 8:10 AM EST 150 mg Given 12/19/2024 8:51 PM EST 150 mg Given 12/19/2024 8:46 AM EST 150 mg carvedilol (Coreg) tablet 6.25 mg 6.25 mg, Oral, 2 times daily, First dose on Sun12/17/24 at 2100, Until Discontinued, Routine Given 12/20/2024 8:10 AM EST 6.25 mg Given 12/19/2024 8:51 PM EST 6.25 mg Given 12/19/2024 8:46 AM EST 6.25 mg cefTRIAXone (Rocephin) 1 g in sodium chloride 0.9% 100 mL IVPB (vial adapter required) 1 g, Intravenous, Every 24 hours, First dose on Sun12/17/24 at 2000, Until Discontinued, Routine New Bag 12/17/2024 8:54 PM EST 1 g 220 mL/hr ciprofloxacin (Cipro) tablet 500 mg 500 mg, Oral, Daily, First dose on Sun12/17/24 at 1615, Until Discontinued, Routine Given 12/17/2024 6:55 PM EST 500 mg ciprofloxacin (Cipro) tablet 500 mg 500 mg, Oral, Daily, First dose on Sun12/19/24 at 1230, Until Discontinued, Routine Given 12/20/2024 8:10 AM EST 500 mg Given 12/19/2024 11:48 AM EST 500 mg escitalopram (Lexapro) tablet 5 mg 5 mg, Oral, Daily, First dose on Sun12/17/24 at 1615, Until Discontinued, Routine Given 12/20/2024 8:11 AM EST 5 mg Given 12/19/2024 8:46 AM EST 5 mg ferrous sulfate EC tablet 324 mg 324 mg, Oral, Daily with breakfast, First dose on Sun12/20/24 at 0800, Until Discontinued, Routine Given 12/20/2024 8:11 AM EST 324 mg furosemide (Lasix) tablet 20 mg 20 mg, Oral, Daily, First dose on Sun12/19/24 at 1230, Until Discontinued, Routine Given 12/20/2024 8:11 AM EST 20 mg Given 12/19/2024 11:48 AM EST 20 mg lactulose (Chronulac) 10 GM/15ML solution 10 g 10 g, Oral, 3 times daily, First dose on Sun12/19/24 at 1600, Until Discontinued, Routine Given 12/20/2024 8:09 AM EST 10 g Given 12/19/2024 8:51 PM EST 10 g Given 12/19/2024 3:00 PM EST 10 g magnesium sulfate IVPB 2 g 2 g, Intravenous, Once, 1 dose, On Sun12/18/24 at 0815, Routine New Bag 12/18/2024 8:18 AM EST 2 g 25 mL/hr octreotide (SandoSTATIN) 1,000 mcg in sodium chloride 0.9 % 100 mL infusion 50 mcg/hr (5 mL/hr), 10 mcg/mL, Intravenous, Continuous, Starting on Sun12/17/24 at 1900, Until Sun12/18/24 at 1427, Routine New Bag 12/17/2024 8:03 PM EST 50 mcg/hr 5 mL/h r octreotide (SandoSTATIN) injection 50 mcg 50 mcg, Intravenous, Once, 1 dose, On Sun12/17/24 at 1900, STAT Given 12/17/2024 8:00 PM EST 50 mcg ondansetron (Zofran) 4 MG/5ML solution 4 mg 4 mg, Oral, Every 6 hours PRN, Starting on Sun12/17/24 at 2101, Until 12/20/24 at 1644, Routine, nausea, vomiting ondansetron (Zofran) injection 4 mg 4 mg, Intravenous, Every 6 hours PRN, Starting on Sun12/17/24 at 2101, Until 12/20/24 at 1644, Routine, vomiting, nausea Given 12/17/2024 10:11 PM EST 4 mg ondansetron ODT (Zofran-ODT) disintegrating tablet 4 mg 4 mg, Oral, Every 6 hours PRN, Starting on Sun12/17/24 at 2101, Until 12/20/24 at 1644, Routine, nausea, vomiting pantoprazole (Protonix) EC tablet 40 mg 40 mg, Oral, Daily, First dose on Sun12/17/24 at 1615, Until Discontinued, Routine Given 12/17/2024 6:55 PM EST 40 mg pantoprazole (Protonix) injection 40 mg 40 mg, Intravenous, 2 times daily, First dose on Sun12/17/24 at 2130, Until Discontinued, Routine Given 12/20/2024 8:10 AM EST 40 mg Given 12/19/2024 8:51 PM EST 40 mg Given 12/19/2024 8:45 AM EST 40 mg polyethylene glycol-electrolytes (Nulytely) solution 2,000 mL 2,000 mL, Oral, Once, 1 dose, On Sun12/17/24 at 1700, Routine Given 12/17/2024 5:59 PM EST 2,000 mL polyethylene glycol-electrolytes (Nulytely) solution 2,000 mL 2,000 mL, Oral, Once, 1 dose, On Cassia 12/18/24 at 0300, RoutineIndications:Bowel Evacuation Given 12/18/2024 3:00 AM EST 2,000 mL rifAXIMin (Xifaxan) tablet 550 mg 550 mg, Oral, 2 times daily, First dose on Sun12/17/24 at 2100, Until Discontinued, Routine Given 12/20/2024 8:11 AM EST 550 mg Given 12/19/2024 8:51 PM EST 550 mg Given 12/19/2024 8:46 AM EST 550 mg smog 30%-30%-30%-10% rectal enema 100 mL 100 mL, Rectal, Once, 1 dose, On Cassia 12/18/24 at 0830, Routine Given 12/18/2024 8:18 AM EST 100 mL sodium chloride 0.9 % flush 10 mL 10 mL, Intravenous, Every 12 hours, First dose on Sun12/17/24 at 1430, Until Discontinued, Routine Given 12/20/2024 2:00 AM EST 10 mL Given 12/19/2024 8:47 AM EST 10 mL Given 12/19/2024 1:35 AM EST 10 mL sodium chloride 0.9 % flush 10 mL 10 mL, Intravenous, As needed, Starting on Sun12/17/24 at 1425, Until 12/20/24 at 1644, Routine, line care spironolactone (Aldactone) tablet 50 mg 50 mg, Oral, Daily, First dose on Sun12/19/24 at 1230, Until Discontinued Given 12/20/2024 8:11 AM EST 50 mg Given 12/19/2024 11:48 AM EST 50 mg documented in this encounter Active and Recently Administered Medications Times are shown in EST. Scheduled Medication Order 12/18/2024 12/19/2024 12/20/2024 buPROPion SR (Wellbutrin SR) 12 hr tablet 150 mg 150 mg, Oral, 2 times daily, First dose on Sun12/17/24 at 2100, Until Discontinued, Routine 0839 (Not Given - Provider: Patricia Garcia RN - Reason: Upcoming test/procedure)2199 (Given - Provider: Janiya David RN) 0846 (Given - Provider: Yi Recinos, DEMETRIA)2050 (Given - Provider: Ana María Livingston, DEMETRIA) 0810 (Given - Provider: Radha Da Silva LPN) carvedilol (Coreg) tablet 6.25 mg 6.25 mg, Oral, 2 times daily, First dose on Sun12/17/24 at 2100, Until Discontinued, Routine 0839 (Not Given - Provider: Patricia Garcia RN - Reason: Upcoming test/procedure)2200 (Given - Provider: Janiya David RN) 0846 (Given - Provider: Yi Recinos RN)2050 (Given - Provider: Ana María Livingston RN) 0810 (Given - Provider: Radha Da Silva LPN) ciprofloxacin (Cipro) tablet 500 mg 500 mg, Oral, Daily, First dose on Sun12/19/24 at 1230, Until Discontinued, Routine 1148 (Given - Provider: Yi Recinos RN) 0810 (Given - Provider: Radha Da Silva LPN) escitalopram (Lexapro) tablet 5 mg 5 mg, Oral, Daily, First dose on Sun12/17/24 at 1615, Until Discontinued, Routine 0839 (Not Given - Provider: Patricia Garcia RN - Reason: Upcoming test/procedure) 0846 (Given - Provider: Yi Recinos RN) 0811 (Given - Provider: Radha Da Silva LPN) ferrous sulfate EC tablet 324 mg 324 mg, Oral, Daily with breakfast, First dose on 12/20/24 at 0800, Until Discontinued, Routine 0811 (Given - Provid er: Radha Da Silva LPN) furosemide (Lasix) tablet 20 mg 20 mg, Oral, Daily, First dose on Sun12/19/24 at 1230, Until Discontinued, Routine 1148 (Given - Provider: Yi Recinos RN) 0811 (Given - Provider: Radha Da Silva LPN) lactulose (Chronulac) 10 GM/15ML solution 10 g 10 g, Oral, 3 times daily, First dose on Sun12/19/24 at 1600, Until Discontinued, Routine 1500 (Given - Provider: Yi Recinos RN)2050 (Given - Provider: Ana María Livingston RN) 0809 (Given - Provider: Radha Da Silva LPN)1600 (Canceled Entry - Provider: Automatic Discharge Provider - Comment: Automatically canceled at discontinue of medication order) magnesium sulfate IVPB 2 g (COMPLETED) 2 g, Intravenous, Once, 1 dose, On Cassia 12/18/24 at 0815, Routine 0818 (New Bag - Provider: Patricia Garcia, DEMETRIA) pantoprazole (Protonix) injection 40 mg 40 mg, Intravenous, 2 times daily, First dose on Sun12/17/24 at 2130, Until Discontinued, Routine 0817 (Given - Provider: Patricia Garcia RN)2200 (Given - Provider: Janiya David RN) 0845 (Given - Provider: Yi Recinos RN)2050 (Given - Provider: Ana María Livingston, RN) 0810 (Given - Provider: Radha Da Silva LPN) polyethylene glycol-electrolytes (Nulytely) solution 2,000 mL (COMPLETED) 2,000 mL, Oral, Once, 1 dose, On Sun12/18/24 at 0300, Routine 0300 (Given - Provider: Rola Huff RN) rifAXIMin (Xifaxan) tablet 550 mg 550 mg, Oral, 2 times daily, First dose on Sun12/17/24 at 2100, Until Discontinued, Routine 0839 (Not Given - Provider: Patricia Garcia RN - Reason: Upcoming test/procedure - Comment: held per provider advisement)2200 (Given - Provider: Janiya David RN) 0846 (Given - Provider: Yi Recinos RN)2050 (Given - Provider: Ana María Livingston RN) 0811 (Given - Provider: Radha Da Silva LPN) smog 30%-30%-30%-10% rectal enema 100 mL (COMPLETED) 100 mL, Rectal, Once, 1 dose, On Cassia 12/18/24 at 0830, Routine 0818 (Given - Provider: Patricia Garcia RN) sodium chloride 0.9 % flush 10 mL(Linked Group 1) 10 mL, Intravenous, Every 12 hours, First dose on Sun12/17/24 at 1430, Until Discontinued, Routine 0346 (Canceled Entry - Provider: Rola Huff RN)0818 (Given - Provider: Patricia Garcia RN)1543 (Not Given - Provider: Patricia Garcia RN - Reason: Order parameters not met - Comment: infusing) 0135 (Given - Provider: Janiya David RN)0847 (Given - Provider: Yi Recinos RN) 0200 (Given - Provider: Ana María Livingston RN)1430 (Canceled Entry - Provider: Automatic Discharge Provider - Comment: Automatically canceled at discontinue of medication order) spironolactone (Aldactone) tablet 50 mg 50 mg, Oral, Daily, First dose on Sun12/19/24 at 1230, Until Discontinued 1148 (Given - Provider: Yi Recinos RN) 0811 (Given - Provider: Radha Da Silva LPN) PRN Medication Order 12/18/2024 12/19/2024 12/20/2024 ondansetron (Zofran) 4 MG/5ML solution 4 mg(Linked Group 2) 4 mg, Oral, Every 6 hours PRN, Starting on Sun12/17/24 at 2101, Until 12/20/24 at 1644, Routine, nausea, vomiting ondansetron (Zofran) injection 4 mg(Linked Group 2) 4 mg, Intravenous, Every 6 hours PRN, Starting on Sun12/17/24 at 2101, Until 12/20/24 at 1644, Routine, vomiting, nausea ondansetron ODT (Zofran-ODT) disintegrating tablet 4 mg(Linked Group 2) 4 mg, Oral, Every 6 hours PRN, Starting on Sun12/17/24 at 2101, Until 12/20/24 at 1644, Routine, nausea, vomiting sodium chloride 0.9 % flush 10 mL(Linked Group 1) 10 mL, Intravenous, As needed, Starting on Sun12/17/24 at 1425, Until 12/20/24 at 1644, Routine, line care Linked Groups Order Group 1: Insert peripheral IV (CANCELED) Once, On Sun12/17/24 at 1426, For 1 occurrence And Saline lock IV (CANCELED) Once, On Sun12/17/24 at 1426, For 1 occurrence And sodium chloride 0.9 % flush 10 mLJump to med 10 mL, Intravenous, Every 12 hours, First dose on Sun12/17/24 at 1430, Until Discontinued, Routine And sodium chloride 0.9 % flush 10 mLJump to med 10 mL, Intravenous, As needed, Starting on Sun12/17/24 at 1425, Until 12/20/24 at 1644, Routine, line care Group 2: ondansetron ODT (Zofran-ODT) disintegrating tablet 4 mgJump to med 4 mg, Oral, Every 6 hours PRN, Starting on Sun12/17/24 at 2101, Until 12/20/24 at 1644, Routine, nausea, vomiting Or ondansetron (Zofran) injection 4 mgJump to med 4 mg, Intravenous, Every 6 hours PRN, Starting on Sun12/17/24 at 2101, Until 12/20/24 at 1644, Routine, vomiting, nausea Or ondansetron (Zofran) 4 MG/5ML solution 4 mgJump to med 4 mg, Oral, Every 6 hours PRN, Starting on Sun12/17/24 at 2101, Until 12/20/24 at 1644, Routine, nausea, vomiting documented in this encounter Additional Health Concerns [...] documented as of this encounter Care Teams [employer] Director Relationship Specialty Start Date End Date Pcp, Sm[place] [address] [place] [address] PCP - General Family Medicine 10/20/23 12/21/24 documented as of this encounter
--- OUTSIDE RECORDS SUMMARY | 2024-12-18 09:56 | XMS_ITS | Encounter Summary ---
Author Organization [facility] Address [address] [place] [address] Care Team Providers Care Roof Mechanic Name Role Phone Pcp, No Primary Care Provider Unavailabl e Reason for Visit * Auth/Cert (Routine) Specialty Diagnoses / Procedures Referred By Contac t Referred To Contact Diagnoses Anemia Symptomatic anemia Anemia, unspecified type Alcoholic cirrhosis, unspecified whether ascites present Hemoglobin 6.3 Leroy Aponte MD [address] [place] [address] Phone: tel: fax: [facility] [address] [place] [address] Phone: tel: Referral ID Status Reason Start Date Expiration Date Visits Re quested Visits Authorized [id number] 1 1 Encounter Details Date Type Department Care Team (Late st Contact Info) Description 12/18/2024 9:56 AM EST Anesthesia Event [facility] [address] [place] [address] Liu East MD [address] [place] [address] Anesthesia Record Procedure Summary Procedure Name Responsible Anesthesiologist Anesthesia Start Time Anesthesia Stop Time COLONOSCOPY Liu East MD 12/18/24 0956 1129 Events Date Time Event Comment 12/18/2024 0932 0956 In Room 0956 An Start The patient was reevaluated immediately before sedation and remains eligible for anesthesia plan. 0956 An Start Data 1002 An Induction The patient was reevaluated immediately before moderate or deep sedation use and before anesthesia induction. 1002 Anesthesia Ready 1003 Proc Start 1113 Proc Fin 1122 an stop data 1124 Out of Room 1129 Handoff to Receiving I compl eted my handoff to the receiving clinician during which we: 1. Identified the patient 2. Identified the responsible provider 3. Reviewed the pertinent medical history 4. Discussed the surgical course 5. Reviewed intra-op anesthesia management and issues during anesthesia 6. Set expectations for post-procedure period 7. Allowed opportunity for questions and acknowledgement of understanding. 1129 An Stop Meds Name Total lidocaine PF (Xylocaine-MPF) 2% 100 mg propofol (Diprivan) injection 10 mg/mL 2 00 mg propofol (Diprivan) infusion 10 mg/mL 1, 895.4 mg lactated Ringer's infusion 750 mL * Agents No agents on file. * Blood No blood administrations on file. Lines, Drains, and Airways Type Details Placement Removal Wound 10/18/24; 2305; Y; Traumatic; Abrasion; Arm; Lower, Posterior, Proximal, Right; 01/02/25; 1559 10/18/24 2305 by Jaja Heard RN 01/02/25 1559 by Jolene Florian RN Wound 10/18/24; 2310; Butt ocks; 01/02/25; 1559 10/18/24 2310 by Jaja Heard RN 01/02/25 1559 by Jolene Florian RN Wound 11/04/24; 1510; Yes; Abdomen; Left, Lower; paracentesis site - site sealed with Dermabond & covered with Bandaid; 01/02/25; 1559 11/04/24 1510 by Brooke Fried RN 01/02/25 1559 by Jolene Florian RN Peripheral IV Placement Date: 07/06; Placement Time: 931; Catheter Size: 20 G; Orientation: Anterior, Left; Location: Forearm; Site Prep: Chlorhexidine ; Technique: Anatomical landmarks; Inserted by: Donnell; Insertion Attempts: 1; Patient Tolerance: Tolerated well; Removal Date: 12/20/24; Removal Time: 1116 12/17/24 0932 by Donnell Cervantes 12/20/24 1116 by Radha Da Silva LPN Peripheral IV Placement Date: 07/06; Placement Time: 2149; Catheter Size: 20 G; Orientation: Right; Location: Antecubital; Site Prep: Alcohol; Technique: Anatomical landmarks; Inserted by: John AUGUTSIN; Insertion Attempts: 2; Patient Tolerance: Tolerated well; Removal Date: 12/19/24; Removal Time: [id number]/17/[id number] by Jerome Mendez RN 12/19/241719 by Yi Recinos RN documented in this encounter Social History Tobacco Use Types Packs/Day Years [...] any time in the past 12 m [facility], were you homeless or living in a half-way (including now)? No 12/18/2024 [facility] Utilities Answer Date Recorded In the past 12 months has th e electric, gas, oil, or water company threatened to shut off services in your home? No 12/18/2024 Sex and Gender Information Value Date Recorded Sex Assigned at Not on file Legal Sex Male 2:45 PM EDT Gender Identity Not on file Sexual Orientation Not on file documented as of this encounter Mental Status * Patient Category Range Answer Entry Date Author Adult 12/18/2024 11:21 AM EST Interfac e, Device In * Assessment Question Answer Entry Date Author O2 Delivery Method High flow nasal cannula 12/18/2024 10:01 AM EST Félix Muñiz CRNA documented in this encounter Miscellaneous Notes * Anesthesia Postprocedure Evaluation - Félix Muñiz CRNA - 12/18/2024 11:29 AM EST Patient: Cesar Tay Anesthesia Type: general Vitals Value Taken Time BP 128/82 12/18/24 11:29 Temp 97.0 12/18/24 11:29 Pulse 77 12/18/24 11:28 Resp 16 12/18/24 11:28 SpO2 91 % 12/18/24 11:28 Vitals shown include unfiled device data. Anesthesia Post Evaluation Patient location during evaluation: PACU Patient participation: complete - patient participated Level of consciousness: awake Pain management: adequate (pain score 0-3) Airway patency: natural airway Cardiovascular status: acceptable and hemodynamically stable Respiratory status: acceptable, face mask and nonlabored ventilation Hydration status: acceptable Nausea/Vomiting: No No notable events documented. * Anesthesia Preprocedure Evaluation - Zachery Jimenez III, MD - 12/18/2024 6:30 AM EST Procedure Information Date/Time: 12/18/24 1000 Scheduled providers: Prieto Dillon MD; Liu East MD; Bethany Ayers CRNA Procedures: COLONOSCOPY EGD Location: [facility] Endoscopy HPI Cesar Tay is a 44 y.o. male with body mass index is 30.57 kg/m??. 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 nutrional drink glucose control (Boost Glucose Control) liquid liquid 237 mL, Oral, 2 times daily pantoprazole (PROTONIX) 40 mg, Oral, Daily, Do not crush, chew, or split. rifAXIMin (XIFAXAN) 550 mg, Oral, 2 times daily spironolactone (ALDACTONE) 50 mg, Oral, Daily traZODone (DESYREL) 25 mg, Oral, Nightly Scheduled Current Scheduled Medications[2] PRNs Current PRN Medications[3] SURGICAL HX: Surgical History[4] SOCIAL HX: Social History[5] OBJECTIVE DATA Blood pressure 129/73, pulse 64, temperature 36.7 ??C (98.1 ??F), temperature source Oral, resp. rate 18, height 1.88 m (6' 2 ), weight 108 kg (238 lb 1.6 oz), SpO2 100%. LABS Lab Results Component Value Date WBC 4.24 12/18/2024 HGB 8.1 (L) 12/18/2024 HCT 26.2 (L) 12/18/2024 MCV 101 (H) 12/18/2024 PLT 69 (L) 12/18/2024 Lab Results Component Value Date CALCIUM 8.4 (L) 12/18/2024 BUN 17 12/18/2024 CREATININE 0.81 12/18/2024 BCR 21 12/18/2024 NA 132 (L) 12/18/2024 K 4.6 12/18/2024 CL 104 12/18/2024 CO2 20 (L) 12/18/2024 ANIONGAP 8 12/18/2024 INR Date Value Ref Range Status 12/18/2024 2.4 (H) 0.9 - 1.1 Final Lab Results Component Value Date HGBA1C <4.0 10/21/2024 GLUCOSE 85 12/18/2024 ABG No results found for: PHART , YPM9LQE , PO2ART , SO2ART , BEART , ANH6THJ , HCTART , SODIUMART , POTASSIUMART , POCTCL , POCGLU , IONCALART , LACTATE No results found for: PH , PCO2 , PO2 , P4JTXCRN , BASEEXC , HCTSYR , KSYR , CLSYR , GLUSYR , CAION , LACTATE EKG Encounter Date: 12/17/24 ECG Adult Result Value EKG DIAGNOSIS CLASS Abnormal Ventricular Rate 66 Atrial Rate 66 TN Interval 178 QRSD Interval 88 QT Interval 474 QTC Interval 496 P Bison 45 R Bison 29 T Wave Bison 19 Diagnosis Normal sinus rhythm Diagnosis QTcB >= 480 msec Diagnosis Abnormal ECG *Note: Due to a large number of results and/or encounters for the requested time period, some results have not been displayed. A complete set of results can be found in Results Review. ECHO Echo, Adult Transthoracic Complete Result Date: 10/23/2024 Left Ventricle: Based on the linear dimension and/or 2D volumes, the left ventricle is normal in size. There is normal left ventricular myocardial thickness and mass. The left ventricular systolic function is normal. The LVEF as measured by biplane volume is 61%. The diastolic function is normal. The left ventricular filling pressure is normal. The left ventricular wall motion is normal and no regional wall motion abnormalities are seen. Right Ventricle: The right ventricle is mildly dilated. The right ventricular systolic function is normal. Unable to estimate the right ventricular systolic pressure (RVSP) due to inadequate TR signal. Left Atrium: The left atrial size is moderately increased with an indexed volume of 42-48 mL/m2. Intravenous injection of agitated saline demonstrate late appearance of bubbles in the left heart consistent with minimal intrapulmonary shunting. IVC/SVC: Based on the IVC size and respiratory variation, the estimated right atrial pressure is 3mmHg. Great Vessels: The main pulmonary artery is dilated. There is no recent study available for direct ehuf-vx-vuta comparison. Physical Exam Airway Mallampati: I Mouth opening: normal TM distance: >3 FB Neck ROM: full Cardiovascular Rhythm: regular Rate: normal (-) murmur, peripheral edema Dental - normal exam Pulmonary Breath sounds clear to auscultation (-) wheezes Neurological Oriented: normal to time, normal to place and normal to person and oriented to person, place and time (-) altered mental status Skin Skin: warm and dry Musculoskeletal Extremities Other findings: Scleral icterus Anesthesia Plan ASA 3 Plan was reviewed with: THIRD SHIFT LIEUTENANT Anesthesia technique(s) discussed with the patient/family: general Anesthesia plan agreed upon was: general Anesthetic plan and risks discussed with patient. ROS Anesthesia: Does not have history of previous anesthesia. Cardiovascular: Does not have peripheral edema or peripheral edema. hypertension: Gastrointestinal: GERD:cirrhosis and jaundice. [1] Allergies Allergen Reactions Amoxicillin Hives and Rash Childhood allergy [2] buPROPion SR, 150 mg, Oral, BID carvedilol, 6.25 mg, Oral, BID cefTRIAXone, 1 g, Intravenous, q24h escitalopram, 5 mg, Oral, Daily magnesium sulfate, 2 g, Intravenous, Once pantoprazole, 40 mg, Intravenous, BID rifAXIMin, 550 mg, Oral, BID smog, 100 mL, Rectal, Once Insert peripheral IV, , , Once AND Saline lock IV, , , Once AND sodium chloride, 10 mL, Intravenous, q12h AND sodium chloride, 10 mL, Intravenous, PRN [3] PRN medications: ondansetron ODT OR ondansetron OR ondansetron, Insert peripheral IV AND Saline lock IV AND sodium chloride AND sodium chloride [4] Past Surgical History: Procedure Laterality Date VASECTOMY [5] Social History Tobacco Use Smoking status: Never Passive exposure: Current Smokeless tobacco: Current Types: Chew Substance Use Topics Alcohol use: Not Currently Alcohol/week: 4.0 standard drinks of alcohol Types: 4 Cans of beer per week Comment: Quit 2 months ago Drug use: Never Cosigned by Liu East MD at 12/18/2024 9:55 AM EST Associated attestation - Liu East MD - 12/18/2024 9:55 AM EST I agree with the findings and care plan documented in the preprocedure evaluation note. documented in this encounter Plan of Treatment Upcoming Encounters Date Type Department Care Team (Late st Contact Info) Description 02/17/2025 7:00 AM EST Clinical Support [facility] [place] [address] [place] [address] 02/17/2025 8:40 AM EST Office Visit [facility] [address] [place] [address] Gqamjkbnob-Ifirj-T urgery-Paul 03/06/2025 11:10 AM EST Appointment [facility] [address] [place] [address] Natalya Valentine MD [address] [place] [address] documented as of this encounter Visit Diagnoses Not on filedocumented in this encounter Administered Medications Inactive Administered Medications - up to 3 most recent administrations Medication Order MAR Action Action Date Dose Rate Site lactated Ringer's infusion Intravenous, Continuous PRN, Starting on Cassia 12/18/24 at 0956, Until Cassia 12/18/24 at 1129, Routine New Bag 12/18/2024 9:56 AM EST lidocaine PF (Xylocaine) 2 % injection Intravenous, As needed, Starting on Cassia 12/18/24 at 1002, Until Cassia 12/18/24 at 1129, Routine, Anesthesia Intraprocedure Given 12/18/2024 10:02 AM EST 100 mg propofol (Diprivan) infusion 10 mg/mL Intravenous, Continuous PRN, Starting on Cassia 12/18/24 at 1002, Until Cassia 12/18/24 at 1129, Routine Rate/Dose Change 12/18/2024 10:06 AM EST 250 mcg/kg/min 162 mL/hr New Bag 12/18/2024 10:02 AM EST 200 mcg/kg/min 129.6 mL /hr propofol (Diprivan) injection Intravenous, As needed, Starting on Cassia 12/18/24 at 1002, Until Cassia 12/18/24 at 1129, Routine, Anesthesia Intraprocedure Given 12/18/2024 10:20 AM EST 50 mg Given 12/18/2024 10:03 AM EST 50 mg Given 12/18/2024 10:02 AM EST 100 mg documented in this encounter Additional Health Concerns [...] documented as of this encounter Care Teams Roof Mechanic Relationship Specialty Start Date End Date Nelson, [place] [address] PCP - General Family Medicine 10/20/23 12/21/24 documented as of this encounter
--- OUTSIDE RECORDS SUMMARY | 2024-12-30 08:00 | XMS_ITS | Encounter Summary ---
Author Organization [facility] Address [address] 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 [address] [place] [address] Brionna Martinez, CRISTAL [address] [place] [address] Weakness (Primary Dx); Insomnia, unspecified type; Awaiting liver transplant; Decompensation of cirrhosis of liver (CMS/HCC); Primary insomnia; Depressive disorder Social History Tobacco Use Types Packs/Day Years Used Date Smoking Tobacco: Never Passive Smoke Exposure: Current Smokeless Tobacco: Current Chew Alcohol Use Standard Drinks/Week Comments Not Currently 4 (1 standard drink = 0.6 oz pur e alcohol) Quit 2 months ago PHQ-2 Answer Date Recorded Patient Health Questionnaire-2 Score 2 12/30/2024 PHQ-9 Answer Date Recorded Patient Health Questionnaire-9 Score 13 12/30/2024 Humiliation, Afraid, Rape, and Kick questionnair e [...] any time in the past 12 m [facility], were you homeless or living in a mcc (including now)? No 12/18/2024 [facility] Utilities Answer Date Recorded In the past 12 months has th e [employer], gas, oil, or water company threatened to shut off services in your home? No 12/18/2024 Sex and Gender Information Value Date Recorded Sex Assigned at Not on file Legal Sex Male 2:45 PM EDT Gender Identity Not on file Sexual Orientation Not on file documented as of this encounter Last Filed Vital Signs Vital Sign Reading Time Taken Comments Blood Pressure 128/78 12/30/2024 7:05 AM EST Pulse 71 12/30/2024 7:05 AM EST Temperature 36.7 C (98.1 F) 12/30/2024 7:05 AM EST Respiratory Rate - - Oxygen Saturation 98% 12/30/2024 7:05 AM EST Inhaled Oxygen Concentration - - Weight 108 kg (237 lb 3.4 oz) 12/30/2024 7:05 AM EST Height - - Body Mass Index 30.44 12/18/2024 9:38 AM EST documented in this encounter Functional Status * BP Answer Date of Assessment Author 128/78 12/30/2024 7:05 AM EST Carlie Mendes RN * Temp Answer Date of Assessment Author 98.1 12/30/2024 7:05 AM Carlie Brandon RN * Temp src Answer Date of Assessment Author Oral 12/30/2024 7:05 AM Carlie Brandon RN * Pulse Answer Date of Assessment Author 71 12/30/2024 7:05 AM Carlie Brandon RN * SpO2 Answer Date of Assessment Author 98 12/30/2024 7:05 AM Carlie Brandon RN * Weight Answer Date of Assessment Author 3795.44 12/30/2024 7:05 AM Carlie Brandon RN * Total Weight Change Percent Answer Date of Assessment Author 2222 12/30/2024 7:05 AM Carlie Brandon RN * Weight Change Since Preop Answer Date of Assessment Author 107.58 12/30/2024 7:05 AM Carlie Brandon RN * Weight Change Since Last Visit Answer Date of Assessment Author 107.58 12/30/2024 7:05 AM Carlie Brandon RN * Weight Change 24 hrs Answer Date of Assessment Author -.4 12/30/2024 7:05 AM Carlie Brandon RN * Depression Screening Question Answer Date of Assessment Author Will the patient answer the depression risk questions? Yes 12/30/2024 7:10 AM Deidra Brandon RN * BSA (Calculated - sq m) Answer Date of Assessment Author 2.37 12/30/2024 7:05 AM Carlie Brandon RN * BMI (Calculated) Answer Date of Assessment Author 30.44 12/30/2024 7:05 AM Carlie Brandon RN * BP Location Answer Date of Assessment Author Right arm 12/30/2024 7:05 AM Carlie Brandon RN * Over the past 2 weeks, how often have you been bothered by any of the following problems? Question Answer Date of Assessment Author Little interest or pleasure in doing things Several days 12/30/2024 7:10 AM Carlie Brandon RN Feeling down, depressed, or hopeless Several days 12/30/2024 7:10 AM Carlie Brandon RN Patient Health Questionnaire-2 Score 2 12/30/2024 7:10 AM Carlie Brandon RN * Over the past 2 weeks, how often have you been bothered by any of the following problems? Question Answer Date of Assessment Author Trouble falling or staying asleep, or sleeping too much Nearly every day 12/30/2024 7:10 AM Carlie Brandon RN Feeling tired or having little energy More than half the days 12/30/2024 7:10 AM Carlie Brandon RN Poor appetite or overeating More than half the days 12/30/2024 7:10 AM Carlie Brandon RN Feeling bad about yourself - or that you are a failure or have let yourself or your family down More than half the days 12/30/2024 7:10 AM Carlie Brandon RN Trouble concentrating on things, such as reading the newspaper or watching television Not at all 12/30/2024 7:10 AM Carlie Brandon RN Moving or speaking so slowly that other people could have noticed. Or the opposite - being so fidgety or restless that you have been moving around a lot more than usual More than half the days 12/30/2024 7:10 AM Carlie Brandon RN Thoughts that you would be better off or hurting yourself in some way Not at all 12/30/2024 7:10 AM Carlie Brandon RN Patient Health Questionnaire-9 Score 13 12/30/2024 7:10 AM Carlie Brandon RN * How difficult have these problems made it for you to do your work, take care of things at home, or get along with other people? Answer Date of Assessment Author Somewhat difficult 12/30/2024 7:10 AM Carlie Perkins i, RN * Weight Change Since Preop Answer Date of Assessment Author 107.6 12/30/2024 7:05 AM Carlie Brandon RN * Weight Change Since Last Visit Answer Date of Assessment Author -0.4 12/30/2024 7:05 AM Carlie Brandon RN * Difference in Weight Since Last Visit Answer Date of Assessment Author -0.4 12/30/2024 7:05 AM Carlie Brandon RN * Temp (in Celsius) for [place] Answer Date of Assessment Author 36.7 12/30/2024 7:05 AM Carlie Brandon RN * Pain Score Answer Date of Assessment Author 0 12/30/2024 7:07 AM Carlie Brandon RN * Patient Position Answer Date of Assessment Author Sitting 12/30/2024 7:05 AM Carlie Brandon RN * Pain Screening/Additional Assessments Question Answer Date of Assessment Author Pain Screening/Assessments Pain Screening 12/30/2024 7 :07 AM Carlie Brandon RN * Pain Screening Answer Date of Assessment Author 0-10 12/30/2024 7:07 AM Carlie Brandon RN * BP Answer Date of Assessment Author 128/78 12/30/2024 7:05 AM Carlie Brandon RN * Temp Answer Date of Assessment Author 98.1 12/30/2024 7:05 AM Carlie Brandon RN * Temp src Answer Date of Assessment Author Oral 12/30/2024 7:05 AM Carlie Brandon RN * Pulse Answer Date of Assessment Author 71 12/30/2024 7:05 AM Carlie Brandon RN * SpO2 Answer Date of Assessment Author 98 12/30/2024 7:05 AM Carlie Brandon RN * Weight Answer Date of Assessment Author 3795.44 12/30/2024 7:05 AM Carlie Brandon RN * BSA (Calculated - sq m) Answer Date of Assessment Author 2.37 12/30/2024 7:05 AM Carlie Brandon RN * BMI (Calculated) Answer Date of Assessment Author 30.44 12/30/2024 7:05 AM Carlie Brandon RN * BP Location Answer Date of Assessment Author Right arm 12/30/2024 7:05 AM Carlie Brandon RN * Over the past 2 weeks, how often have you been bothered by any of the following problems? Question Answer Date of Assessment Author Little interest or pleasure in doing things Several days 12/30/2024 7:10 AM Carlie Brandon RN Feeling down, depressed, or hopeless Several days 12/30/2024 7:10 AM Carlie Brandon RN Patient Health Questionnaire-2 Score 2 12/30/2024 7:10 AM Carlie Brandon RN * Over the past 2 weeks, how often have you been bothered by any of the following problems? Question Answer Date of Assessment Author Trouble falling or staying asleep, or sleeping too much Nearly every day 12/30/2024 7:10 AM Carlie Brandon RN Feeling tired or having little energy More than half the days 12/30/2024 7:10 AM Carlie Brandon RN Poor appetite or overeating More than half the days 12/30/2024 7:10 AM Carlie Brandon RN Feeling bad about yourself - or that you are a failure or have let yourself or your family down More than half the days 12/30/2024 7:10 AM Carlie Brandon RN Trouble concentrating on things, such as reading the newspaper or watching television Not at all 12/30/2024 7:10 AM Carlie Brandon RN Moving or speaking so slowly that other people could have noticed. Or the opposite - being so fidgety or restless that you have been moving around a lot more than usual More than half the days 12/30/2024 7:10 AM Carlie Brandon RN Thoughts that you would be better off or hurting yourself in some way Not at all 12/30/2024 7:10 AM Carlie Brandon RN Patient Health Questionnaire-9 Score 13 12/30/2024 7:10 AM Carlie Brandon RN * How difficult have these problems made it for you to do your work, take care of things at home, or get along with other people? Answer Date of Assessment Author Somewhat difficult 12/30/2024 7:10 AM Carlie Perkins i, RN * Pain Score Answer Date of Assessment Author 0 12/30/2024 7:07 AM Carlie Brandon RN * Patient Position Answer Date of Assessment Author Sitting 12/30/2024 7:05 AM Carlie Brandon RN * Learning Needs Screening Question Answer Date of Assessment Author Are there things (barriers) that make it harder for this patient to learn? No Barriers 12/30/2024 7:08 AM Carlie Brandon RN What is the best language to use for teaching this patient about his/her health? Swedish 12/30/2024 7:08 AM Carlie Brandon RN What format does this patient think is most helpful for learning? Listening;Reading;Dem onstration;Pictures/V ideo 12/30/2024 7:08 AM Carlie Brandon RN Primary Learner Patient 12/30/2024 7:08 AM Carlie Leugn RN * Readiness to Learn Question Answer Date of Assessment Author Readiness Eager 12/30/2024 7:08 AM Carlie Kendrick RN documented as of this encounter Mental Status * BP Answer Entry Date Author 128/78 12/30/2024 7:05 AM Carlie Brandon RN * Temp Answer Entry Date Author 98.1 12/30/2024 7:05 AM Carlie Brandon RN * Temp src Answer Entry Date Author Oral 12/30/2024 7:05 AM Carlie Brandon RN * Pulse Answer Entry Date Author 71 12/30/2024 7:05 AM Carlie Brandon RN * SpO2 Answer Entry Date Author 98 12/30/2024 7:05 AM Carlie Brandon RN * Weight Answer Entry Date Author 3795.44 12/30/2024 7:05 AM Carlie Brandon RN * Total Weight Change Percent Answer Entry Date Author 222112/30/2024 7:05 AM Carlie Brandon RN * Weight Change Since Preop Answer Entry Date Author 107.58 12/30/2024 7:05 AM Carlie Brandon RN * Weight Change Since Last Visit Answer Entry Date Author 107.58 12/30/2024 7:05 AM Carlie Brandon RN * Weight Change 24 hrs Answer Entry Date Author -.4 12/30/2024 7:05 AM Carlie Brandon RN * Depression Screening Question Answer Entry Date Author Will the patient answer the depression risk questions? Yes 12/30/2024 7:10 AM Deidra Brandon RN * BSA (Calculated - sq m) Answer Entry Date Author 2.37 12/30/2024 7:05 AM Carlie Brandon RN * BMI (Calculated) Answer Entry Date Author 30.44 12/30/2024 7:05 AM Carlie Brandon RN * BP Location Answer Entry Date Author Right arm 12/30/2024 7:05 AM Carlie Brandon RN * Over the past 2 weeks, how often have you been bothered by any of the following problems? Question Answer Entry Date Author Little interest or pleasure in doing things Several days 12/30/2024 7:10 AM Carlie Brandon RN Feeling down, depressed, or hopeless Several days 12/30/2024 7:10 AM Carlie Brandon RN Patient Health Questionnaire-2 Score 2 12/30/2024 7:10 AM Carlie Brandon RN * Over the past 2 weeks, how often have you been bothered by any of the following problems? Question Answer Entry Date Author Trouble falling or staying asleep, or sleeping too much Nearly every day 12/30/2024 7:10 AM Carlie Brandon RN Feeling tired or having little energy More than half the days 12/30/2024 7:10 AM Carlie Brandon RN Poor appetite or overeating More than [place] lf the days 12/30/2024 7:10 AM Carlie Brandon RN Feeling bad about yourself - or that you are a failure or have let yourself or your family down More than half the days 12/30/2024 7:10 AM Carlie Brandon RN Trouble concentrating on things, such as reading the newspaper or watching television Not at all 12/30/2024 7:10 AM Carlie Brandon RN Moving or speaking so slowly that other people could have noticed. Or the opposite - being so fidgety or restless that you have been moving around a lot more than usual More than half the days 12/30/2024 7:10 AM Carlie Brandon RN Thoughts that you would be better off or hurting yourself in some way Not at all 12/30/2024 7:10 AM Carlie Brandon RN Patient Health Questionnaire-9 Score 13 12/30/2024 7:10 AM Carlie Brandon RN * [facility] Answer Entry Date Author 3 12/30/2024 7:10 AM Carlie Brandon RN * How difficult have these problems made it for you to do your work, take care of things at home, or get along with other people? Answer Entry Date Author Somewhat difficult 12/30/2024 7:10 AM Carlie Perkins i, RN * Restart Pain Assessment Timer Answer Entry Date Author Yes 12/30/2024 7:07 AM Carlie Brandon RN * Weight Change Since Preop Answer Entry Date Author 107.6 12/30/2024 7:05 AM Carlie Brandon RN * Weight Change Since Last Visit Answer Entry Date Author -0.4 12/30/2024 7:05 AM Carlie Brandon RN * Difference in Weight Since Last Visit Answer Entry Date Author -0.4 12/30/2024 7:05 AM Carlie Brandon RN * Temp (in Celsius) for [place] Answer Entry Date Author 36.7 12/30/2024 7:05 AM Carlie Brandon RN * Pain Score Answer Entry Date Author 0 12/30/2024 7:07 AM Carlie Brandon RN * BP Cuff Size Answer Entry Date Author Large adult 12/30/2024 7:05 AM Carlie Brandon RN * Patient Position Answer Entry Date Author Sitting 12/30/2024 7:05 AM Carlie Brandon RN * Pain Screening Answer Entry Date Author 0-10 12/30/2024 7:07 AM Carlie Brandon RN documented in this encounter Miscellaneous Notes * Progress Notes - Brionna Martinez PA - 12/30/2024 8:00 AM EST Images from the original note were not included. Transplant Hepatology Note Mr. Tay is a 44 year old male with history significant for alcohol related cirrhosis decompensated with ascites, HE came to the clinic for follow up. Ready to list for OLT MELD 27 today Accompanied by Patricia Last seen 12/17/[address] Dillon History of Present Illness Lexapro 5 mg has been prescribed, which he takes half a tablet of, but it appears to be ineffectivein managing his depression. He expresses concern about the potential impact of his liver condition on his mental health. He is currently on Cipro 500 mg daily and has recently started an iron supplement. He is also taking carvedilol twice daily for blood pressure management. Trazodone, prescribed for sleep, is not providing the desired relief. He experiences difficulty sleeping and often forces himself to stay awake throughout the day. He occasionally falls asleep in hischair for 1 to 2 hours but finds it uncomfortable. His blood count was 8 upon discharge from the hospital, increased to 8.7 after 4 to 5 days, and is currently at 8.9. He underwent an upper endoscopy where a bleeding site was cauterized. He has noticed a change in his eye color, which he describes as more yellow than usual. He reports no significant swelling, except for occasional leg swelling that varies in severity. He does not believe an increase in his diuretic medication is necessary as he already experiences frequent urination. He recallsan incident where he felt unwell after eating, but his condition improved after using the bathroom and watching television. He felt well this morning after using the bathroom at 2:00 AM. A colonoscopy is scheduled for 03/06/2025. His urine is dark orange but occasionally clears up to alighter shade. He maintains hydration by consuming water and Body Armor. He has abstained from alcohol and has reduced his sugar intake. He has requested a rolling walker for post-surgery use due to concerns about potential falls. He has an electric lift chair at home to assist with mobility. His physical therapy sessions were canceled due to low hemoglobin levels. He is currently on furosemide 20 mg and spironolactone 50 mg. Liver history: Patient has a longstanding history of alcohol abuse. Drinking approximately 1/5th [place] everyday for the 5 years. Last drink [...] Noted [facility]. Likely in the setting of hemoperitoneum. Does have a history of SBP diagnosed at [facility]. Was on Rocephin. Subsequently discharged on ciprofloxacin for SBP prophylaxis. Underwent rapid transplant evaluation in patient. Patient was discharged on 10/24/2024 with a meld score of 28 on Coreg 6.25 mg twice daily and Lasix 20 mg per day along with spironolactone 50 mg perday. Ciprofloxacin for that secondary SBP prophylaxis. Alcohol related hepatitis -Yes Alcohol counseling - yes, going to [facility] Legal issues - Yes Review of Systems [...] (CIPRO) 500 mg, Oral, Daily escitalopram (LEXAPRO) 10 mg, Oral, Daily ferrous sulfate 324 mg, Oral, Daily with breakfast, Do not crush, chew, or split. furosemide (LASIX) 20 mg, Oral, Daily lactulose (CHRONULAC) 10 g, Oral, 3 times daily Multiple Vitamins-Minerals (Mens Multi Health Formula) tablet Take by mouth. nutrional drink glucose control (Boost Glucose Control) liquid liquid 237 mL, Oral, 2 times daily pantoprazole (PROTONIX) 40 mg, Oral, 2 times daily, Do not crush, chew, or split. rifAXIMin (XIFAXAN) 550 mg, Oral, 2 times daily spironolactone (ALDACTONE) 50 mg, Oral, Daily traZODone (DESYREL) 50 mg, Oral, Nightly Allergies Allergies[1] Vaccinations Immunization History Administered Date(s) Administered HepB-CpG 11/25/2024 Vital Signs Visit Vitals BP 128/78 (BP Location: Right arm, Patient Position: Sitting, BP Cuff Size: Large adult) Pulse 71 Temp 36.7 ??C (98.1 ??F) (Oral) Wt 108 kg (237 lb 3.4 oz) SpO2 98% BMI 30.44 kg/m?? Smoking Status Never BSA 2.37 m?? Physical Exam General - jaundiced male in no acute distress. Appears stated age. HEENT - + scleral icterus, EOMI, atraumatic, normocephalic; ears located midway on head with normalappearance, nose midline without discharge. Cardiovascular - RRR without murmurs, rubs, or gallops; radial pulses 2+ bilaterally; mild to moderate LE edema present Respiratory - respiratory rate even and non-labored; lungs clear to auscultation in all lung [place] Gastrointestinal - bowel sounds present; soft, non-tender, mildly distended, resonant to percussion; small volume ascites noted; no hernias present; liver and spleen not felt Dermatologic - + jaundice, spider angiomata, or palmar erythema. Warm and dry to palpation. No clubbing MSK - no deformities noted; no edema or erythema of joints visible Neuro - no asterixis present, oriented to time and place. Psychiatric - pleasant, calm, cooperative. Labs MELD 3.0: 27 at 12/30/2024 6:24 AM MELD-Na: 27 at 12/30/2024 6:24 AM Calculated from: Serum Creatinine: 0.83 mg/dL (Using min of 1 mg/dL) at 12/30/2024 6:24 AM Serum Sodium: 138 mmol/L (Using max of 137 mmol/L) at 12/30/2024 6:24 AM Total Bilirubin: 13.4 mg/dL at 12/30/2024 6:24 AM Serum Albumin: 3.1 g/dL at 12/30/2024 6:24 AM INR(ratio): 2.5 at 12/30/2024 6:24 AM Age at listing (hypothetical): 44 years Sex: Male at 12/30/2024 6:24 AM AFP Lab Results Component Value Date/Time AFP <2.3 10/20/2024 1534 HgB Lab Results Component Value Date/Time HGB 8.9 (L) 12/30/2024 0624 HGB 8.7 (L) 12/24/2024 1004 WBC Lab Results Component Value Date/Time WBC 3.58 (L) 12/30/2024 0624 WBC 3.15 (L) 12/24/2024 1004 A1c Lab Results Component Value Date/Time HGBA1C <4.0 10/21/2024 0059 Lab Results Component Value Date/Time AST 58 (H) 12/30/2024 0624 ALT 30 12/30/2024 0624 ALKPHOS 120 (H) 12/30/2024 0624 BILITOT 13.4 (H) 12/30/2024 0624 INR 2.5 (H) 12/30/2024 0624 ALBUMIN 3.1 (L) 12/30/2024 0624 CREATININE 0.83 12/30/2024 0624 AFP <2.3 10/20/2024 1534 Lab Results Component Value Date/Time HGB 8.9 (L) 12/30/2024 0624 WBC 3.58 (L) 12/30/2024 0624 PLT 79 (L) 12/30/2024 0624 Hepatitis Serologies Lab Results Component Value Date/Time HEPBSAG Negative 10/20/2024 1534 HECG Negative 10/20/2024 1534 HAG Positive (A) 10/20/2024 1534 Work-up Labs Lab Results Component Value Date/Time FERRITIN 42 12/19/2024 1150 TIBC 230 (L) 12/19/2024 0854 AAT 116 10/20/2024 1534 CERULOPLSM 16 (L) 10/20/2024 1534 HGBA1C <4.0 10/21/2024 0059 CHOL 83 10/20/2024 0417 LDLCALC 40 10/20/2024 0417 HDL 27 (L) 10/20/2024 0417 TRIG 72 10/20/2024 0417 TSH 2.46 10/20/2024 041 Assessment and Plan Problem List Items Addressed This Visit Decompensation of cirrhosis of liver (CMS/HCC) Primary insomnia Depressive disorder Relevant Medications escitalopram (Lexapro) 10 MG tablet traZODone (Desyrel) 50 MG tablet Other Visit Diagnoses Weakness - Primary Relevant Orders DMEFan rolling Insomnia, unspecified type Relevant Medications traZODone (Desyrel) 50 MG tablet Awaiting liver transplant Relevant Orders DMEWalker rolling Mr. Tay is a 44 year old male with history significant for alcohol related cirrhosis decompensated with ascites, HE came to the clinic for follow up. Ready to list for OLT MELD 27 today Accompanied by Patricia # Cirrhosis, decompensated with Ascites, SBP, HE - Etiology: - Alcohol --discussed MELD score, listing for OLT, call in process. Discussed possibility of receiving liver organ offer but transplant ultimately being canceled --avoid NSAIDs, AUNDREA-I/ARBs, CCBs, alcohol, can take tylenol <2000 mg/day --advised to keep weekly labs, gave order to complete in [place] # Ascites/pedal edema: Had paracentesis 2 months ago and has not required any further. Currently on Lasix 20 milligrams daily and spironolactone 50 milligrams daily Being adherent to 2 grams sodium restricted diet Reports that his pedal edema is better than before -- We will continue the same dose of diuretic, discussed possibly increased however he would like to hold off -- Reiterated about the importance of continuing 2 grams sodium restricted diet -- LVP as needed, not currently indicated -- [facility] Continue ciprofloxacin 500 milligrams daily for secondary SBP prophylaxis # HE: No overt hepatic encephalopathy today On lactulose having average of 2 bowel movements per day. We will continue that Continue lactulose and rifaximin with titration of 2-3 bowel movements daily. # Anemia # GAVE s/p APC Varices: No prior EGD. No h/o overt GI bleeding before. Admitted 12/17 -12/20/24 - hgb 6.3 - EGD 12/18/24 - Single small grade I varix in the lower third of the esophagus. 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 On Coreg 6.25 mg BID. --continue coreg --hgb trending up to 8.9, will continue weekly check --repeat eGD planned for February # HCC: - CT abd w IV contrast 10/2024: no suspicious liver lesions. Wedge-shaped hyperenhancement inthe left hepatic lobe favoring transient hepatic attenuation differences. AFP - WNL --Continue Q 6 monthly surveillance # Depression On lexapro 5, will increase to 10, discussed this is max dose # Insomnia --trazodone 50 mg daily # weakness Stable, no issues ambulating or getting out of the chair but at times has issues related to LE swelling, prescribed walker for PRN - He is Immune to Hep A but not to B. First dose of Hep B vaccine given on 11/25/24. Need another dose after 1 month. - Recommend daily protein intake of 1.2 to 1.5 g/kg and caloric intake of at least 35 Kcal/kg idealbody weight, thiamine, vitamin B complex supplementation and janitor supervisor breakfast, late evening snack, and intake of small, frequent meals and snacks every 3- 4 hours while awake # Alcohol use disorder Seeing [facility] Last drink 08/15/24 Alc hep x2 # Tobacco chewing Following with [facility]. On Wellbutrin Quit tobacco >1 month ago RTC 3 weeks A total of 51 minutes was spent on this patient encounter [...] 02/17/2025 7:[address] EST [address] [facility] [address] [place] [address] 02/17/2025 8:40 AM EST Office [facility] Center [address] [place] [address] Hqgrixexyc-Iyxrk-S urgery-Paul 03/06/2025 11:10 AM EST Appointment [facility] [address] [place] [address] Natalya Vaelntine MD [address] [place] [address] documented as of this encounter Visit Diagnoses Diagnosis Weakness- Primary Other malaise and fatigue Insomnia, unspecified type Awaiting liver transplant Decompensation of cirrhosis of liver (CMS/HCC) Primary insomnia Persistent disorder of initiating or maintaining sleep Depressive disorder Depressive disorder, not elsewhere classified documented in this encounter Additional Health Concerns Assessment Noted Time PHQ-9 Depression Total Score: 13 025 7:10 AM EST A fall risk assessment has been complete d for the patient 12/30/2024 7:10 AM EST A Body Mass Index follow-up plan has been documented for the patient 12/30/2024 8:52 AM EST documented as of this encounter Care Teams Power Tool Repairer Relationship Specialty Start Date End Date Param Eng DO [address] [facility] [address] [place] [address] PCP - General 12/22/24 documented as of this encounter
--- OUTSIDE RECORDS SUMMARY | 2025-01-02 09:05 | XMS_ITS | Encounter Summary ---
Author Organization Healthcare Address [address] [place] [address] Care Team Providers Care Desk Clerks Supervisor Name Role Phone Param Eng DO Primary Care Provider [phone] Reason for Visit * Auth/Cert (Routine) Specialty Diagnoses / Procedures Referred By Contac t Referred To Contact Diagnoses Decompensation of cirrhosis of liver (CMS/HCC) Satnam Beckford MD [address] [place] [phone] Phone: tel: fax: [facility] [address] [place] [address] Phone: tel: Referral ID Status Reason Start Date Expiration Date Visits Re quested Visits Authorized [id number] 1 1 Encounter Details Date Type Department Care Team (Late st Contact Info) Description 01/02/2025 9:05 AM EST - 01/16/2025 5:32 PM EST Hospital Encounter [facility] [address] [place] [address] Satnam Beckford MD [address] [place] [address] Maciel Olson MD [address] [place] [address] Decompensation of cirrhosis of liver [...] or relatives? Twice a week 01/02/2025 Attends [employer] Not on file 01/02 Do you belong to any clubs o r organizations such as spiritism groups, unions, fraternal or athletic groups, or [...] housing, medical care, and heating? Hard 01/02/2025 [facility] - Occupational Stress Questionnaire Answer Date [...] any time in the past 12 m [facility], were you homeless or living in a long term (including now)? No 01/02/2025 [facility] Utilities Answer Date Recorded In the [...] drink first t edgardo in the morning ([employer]) to steady your nerves or to get [...] documented in this encounter Functional Status * Other Answer Date of Assessment Author 250 01/14/2025 6:30 AM EST Mirtha Miranda, DEMETRIA * Pre-op Phone Call Discharge Planning Question Answer Date of Assessment Author Patient expects to be discharged to: inpatient 2025 10:23 AM EST Imelda Lucas , DEMETRIA * PT Therapeutic Procedures Time Entry Question Answer Date of Assessment Author Gait Training Time Entry 19 01/13/2025 11:06 AM EST Diego West Neuromuscular Re-Education T nydia Entry 10 01/16/2025 11:29 AM EST Luis Elizalde Therapeutic Activity Time Entry 14 11:29 AM Luis Astorga * OT Therapeutic Procedures Time Entry Question Answer Date of Assessment Author Therapeutic Exercise Time Entry 11 12:51 PM EST Armida Garsia * HEENT Question Answer Date of Assessment Author CLAUDIA (WDL) X 01/16/2025 12:00 PM EST Chintan sArmida RN R Eye Sclera yellow 01/16/2025 12:00 PM EST Anay msArmida S RN L Eye Sclera yellow 01/16/2025 12:00 PM EST Anay msArmida S, RN R Ear Intact 01/15/2025 8:00 PM EST Harvey , Vanda L Ear Intact 01/15/2025 8:00 PM EST Adrianuer , Vanda Nose Intact 01/16/2025 12:00 PM EST Armida Mora, RN Throat Dry 01/04/2025 4:00 PM EST Tila Vazquez, RN Tongue [place];Moist 01/06/2025 4:00 AM EST Sarah Rivera RN Voice Hoarse 01/07/2025 4:[address] RN Mucous Membrane(s) [place];Moist;Intact 01/07/2025 4:00 P M EST Fariha Hill RN Teeth Missing teeth 01/16/2025 12:00 PM EST Armida Cueva ms S, RN Head and Face Symmetrical 01/16/2025 12:00 PM EST Armida Cueva ms, RN Neck Trachea midline 01/15/2025 8:00 PM EST Adrian uer, Vanda Lips Intact 01/15/2025 8:00 PM EST Harvey Vanda * Presentation Question Answer Date of Assessment Author Lines and Tubes Intravenous access 01/16/2025 11:29 AM Luis Astorga Pre-Session Sitting in chair;Betsy es intact 01/16/2025 11:29 AM Luis Astorga Post-Session Sitting in chair;RN notified;Lines intact 01/16/2025 11:29 AM Luis Astorga Pre-Session Comments RN agreeable to session. 01/17/20 11:29 AM Luis Astorga Post-Session Comments Patient positioned for comfort with all needs in reach. at bedside. 01/16/2025 11:29 AM Luis Astorga * BMI (Calculated) Answer Date of Assessment Author 27.6 01/16/2025 6:10 AM EST Medel, Dynasty K, [employer] * Total Weight Change Percent Answer Date of Assessment Author 2222 01/16/2025 6:10 AM EST Medel, Dynasty K, [employer] * Weight Change Since Preop Answer Date of Assessment Author 97.38 01/16/2025 6:10 AM EST Medel, Dynasty K, [employer] * Initial Excess Weight Answer Date of Assessment Author -86.23 01/02/2025 7:48 PM EST Allison Rosenbaum RN * IBW in lbs (Bariatric) Answer Date of Assessment Author 190.1 01/02/2025 7:48 PM Allison Mix RN * Weight Change Since Last Visit Answer Date of Assessment Author 1.6 01/16/2025 6:10 AM EST Gianfranco, Dynasty K, [employer] * IBW in kg (Bariatric) Answer Date of Assessment Author 86.23 01/02/2025 7:48 PM Allison Mix RN * Progress Answer Date of Assessment Author improving 01/16/2025 9:36 AM EST Nimisha Oscar ma, RN * Infection Management Answer Date of Assessment Author aseptic technique maintained 01/15/2025 8:35 PM Allison Mix RN * Supportive Measures Answer Date of Assessment Author active listening utilized 2025 12:46 AM Daylin Gil RN * Activity (Behavioral Health) Answer Date of Assessment Author activity encouraged 2025 12:46 AM Daylin Byrne RN * Pressure Reduction Techniques Answer Date of Assessment Author frequent weight shift encour aged;heels elevated off bed 01/15/2025 8:35 PM Allison Mix RN * Sleep Hygiene Promotion Answer Date of Assessment Author awakenings minimized 2025 12:46 AM EST Daylin Taylor RN * Pain Management Interventions Answer Date of Assessment Author medication (see MAR) 01/15/2025 6:33 AM EST Mirtha Story RN * Fluid/Electrolyte Management Answer Date of Assessment Author intravenous fluid replacement initiated 01/13/20 10:23 AM EST Imelda Lucas RN * Fever Reduction/Comfort Measures Answer Date of Assessment Author lightweight clothing;lightweight bedding 025 8:35 PM EST Allison Rosenbaum RN * Trust Relationship/Rapport Answer Date of Assessment Author care explained;questions ans wered;questions encouraged 2025 12:46 AM EST Daylin Mckeon RN * Pressure Reduction Devices Answer Date of Assessment Author positioning supports utilized 01/15/2025 8:35 PM EST Allison Rosenbaum RN * Elevated Risk Identified Answer Date of Assessment Author fluid and electrolyte imbalance 2025 10:23 AM EST Imelda Lucas RN * Spasticity Management Answer Date of Assessment Author positioned with supportive d evice;spastic muscles stretched;standing frame utilized;triggers managed;weight-bearing facilitated 01/10/2025 4:22 PM EST Rosibel Delvalle * Elevated Risk Identified Answer Date of Assessment Author procedure-related injury 2025 10:23 AM EST Imelda Lucas RN * Social Functional Ability Promotion Answer Date of Assessment Author autonomy promoted 01/04/2025 8:56 PM EST Shaka Cowart RN * Environment Familiarity/Consistency Answer Date of Assessment Author daily routine followed 01/10/2025 4:22 PM EST Rosibel Wise * Infection Prevention Answer Date of Assessment Author equipment surfaces disinfect ed;hand hygiene promoted;rest/sleep promoted;single patient room provided 01/14/2025 7:52 PM EST Bree Mcfarland RN * Outcome Evaluation Answer Date of Assessment Author pt verbalized understanding of current plan of care 01/14/2025 5:45 PM EST Bree Mcfarland RN * Medication Review/Management Answer Date of Assessment Author medications reviewed 01/15/2025 8:37 PM EST Allison Fong RN * Self-Care Promotion Answer Date of Assessment Author independence encouraged;BADL personal objects within reach 01/15/2025 8:37 PM EST Allison Rosenbaum RN * Goal: Anesthesia/Sedation Recovery Question Answer Date of Assessment Author Outcome Anesthesia/Sedation Recovery met 2025 1:12 PM EST Rodney Vázquez RN * Discharge Needs Assessment Question Answer Date of Assessment Author Discharge Facility/Level of Care Needs 1-Home or Self Care 01/16/2025 1:09 PM Gabriela Aly RN Equipment Needed After Discharge walker, rolling 01/16/2025 1:09 PM Gabriela Aly RN Equipment Currently Used at Home none 01/16/2025 1:09 PM Gabriela Aly RN Current Outpatient/Agency/Support Group clinic(s) 01/16/2025 1:09 PM Gabriela Aly RN Anticipated Changes Related to Illness none 01/16/2025 1:09 PM Gabriela Aly RN Transportation Anticipated family or friend will provide 01/16/2025 1:09 PM Gabriela Aly RN Outpatient/Agency/Support Group Needs clinic(s) 01/16/2025 1:09 PM Gabriela Aly RN Transportation Concerns none 01/17/20 1:09 PM Gabriela Aly RN Current Discharge Risk chronically ill 1:09 PM Gabriela Aly RN Readmission Within the Last 30 Days no previous admission in last 30 days 01/16/2025 1:09 PM Gabriela Aly RN Patient/Family Anticipated Services at Transition outpatient care 01/16/2025 1:09 PM Gabriela Aly RN Patient/Family Anticipates Transition to home 01/16/2025 1:09 PM Gabriela Aly RN Does the patient need discharge transport arranged? No 01/16/2025 1:09 PM Gabriela Aly RN Has discharge transport been arranged? No 01/16/2025 1:09 PM Gabriela Aly RN Who is requesting discharge planning? Provider 01/16/2025 1:09 PM Gabriela Aly RN * Goal: Optimal Comfort and Wellbeing Question Answer Date of Assessment Author Outcome Optimal Comfort and Wellbeing met 2025 1:12 PM Rodney Bain RN Elevated Risk Identified pain 2025 10:23 AM Imelda Calvo RN * Goal: Minimized Risk/Safety Maintenance Question Answer Date of Assessment Author Outcome Minimized Risk and Safety met 025 1:12 PM Rodney Bain RN * Goal: Physiologic Homeostasis Question Answer Date of Assessment Author Outcome Physiologic Homeostasis met 1:12 PM EST Rodney Vázquez, RN * RT Positive Expiratory Airway Pressure Question Answer Date of Assessment Author $ PEP Therapeutic Procd Strg Endur Yes 01/09/2025 8:59 PM EST Jaja Carter Delivery Source Aerobika (OPEP) 01/09/2025 8:59 PM EST Raul, Jaja Treatment Perfomed By Independently by p atient or family 01/09/2025 8:59 PM EST Jaja Carter Device Interface Mouth piece 01/09/2025 8:59 PM EST Raul, Jaja Repititions Performed 10 01/09/2025 8:59 PM EST Jaja Carter Resistance Setting 5 01/09/2025 8: 59 PM EST Jaja Carter Flow Rate (LPM) 10 01/07/2025 3:55 PM EST Aliyah Coleman Duration 2 01/07/2025 3:55 PM EST Aliyah Coleman $ PAP Therapy Without Neb Yes 01/07/2025 3:55 PM EST Aliyah Coleman * Weight Change 24 hrs Answer Date of Assessment Author 1.6 01/16/2025 6:10 AM EST Medel, Dynasty K, [employer] * Precautions Question Answer Date of Assessment Author Medical Precautions Post-Surgical precautions;Fall precautions 01/05/2025 9:02 AM Armida Jean Baptiste Post-Surgical Precautions Abdominal: no lifting >10# 01/05/2025 9:02 AM Armida Jean Baptiste * Date of OT Session Question Answer Date of Assessment Author OT Initials HV 01/13/2025 12:51 PM Armida Solis Date of OT Session [id number] 01/13/2025 12:51 PM Armida Villarreal * Oxygen Therapy Question Answer Date of Assessment Author O2 Flow Rate (L/min) 2 01/05/2025 9:40 AM Elyssa Herrera * HLM Question Answer Date of Assessment [facility] Score 8 01/16/2025 11 :29 AM Luis Astorga * Sensation Question Answer Date of Assessment Author Light Touch: Right Upper Extremity Intact 2024 9:02 AM Armida Jean Baptiste * Sensation Question Answer Date of Assessment Author Light Touch: Left Upper Extremity Intact 025 9:02 AM EST Armida Joyce * Sensation Question Answer Date of Assessment Author Light Touch: Right Lower Extremity Mild impairment 9:40 AM EST Short, Elyssa * Sensation Question Answer Date of Assessment Author Light Touch: Left Lower Extremity Mild impairment 12/14 9:40 AM EST Short, Elyssa * Bed Mobility Interventions Question Answer Date of Assessment Author Bed Mobility Interventions pt recieved a nd left sitting upright in bedside chair 01/13/2025 12:51 PM EST Armida Garsia * Bed Mobility Exam: Scooting/Bridging Question Answer Date of Assessment Author Level of Weld Contact guard 2025 3:00 PM EST Short, Elyssa Physical/Nonphysical Assist Verbal Cues; Minimal cues;Set-up required 2025 3:00 PM EST Short, Elyssa Assistive Device Bed rails 2025 3:00 PM EST S hort, Elyssa * Bed Mobility Exam: Rolling/Turning Question Answer Date of Assessment Author Level of Weld Minimum assist (75 % patient effort) 2025 3:00 PM EST Short, Elyssa Physical/Nonphysical Assist Verbal Cues; Minimal cues 2025 3:00 PM EST Short, Elyssa Assistive Device Bed rails 2025 3:00 PM EST S hort, Elyssa * Bed Mobility Exam: Supine to Sit Question Answer Date of Assessment Author Level of Weld Stand-by assist 01/16/2025 1:27 PM EST Luis Elizalde Physical/Nonphysical Assist Verbal Cues 01/16/2025 1: 27 PM EST Fide Luis Assistive Device Bed rails 2025 3:00 PM EST S hort, Elyssa * Bed Mobility Exam: Sit to Supine Question Answer Date of Assessment Author Level of Weld Stand-by assist 01/16/2025 1:27 PM EST Luis Elizalde Physical/Nonphysical Assist Verbal Cues 01/16/2025 1: 27 PM EST Luis Elizalde * Transfer Exam: Sit to stand Question Answer Date of Assessment Author Level of Weld Independent 01/16/2025 11:29 AM EST Luis Elizalde Physical/Nonphysical Assist Verbal Cues;Nonverbal cues (demo/gestures);1 person + 1 person to manage equipment 01/13/2025 12:51 PM EST Armida Garsia Assistive Device Walker, rolling 2025 3:00 PM ES Marlene Healy Elyssa * Transfer Exam: Stand to Sit Question Answer Date of Assessment Author Level of Weld Independent 01/16/2025 11:29 AM EST Luis Elizalde Physical/Nonphysical Assist Nonverbal cues (demo/gestures);Verbal Cues;1 person + 1 person to manage equipment 01/13/2025 12:51 PM EST Armida Garsia Assistive Device Walker, rolling 2025 3:00 PM ES Marlene Healy Elyssa * Transfer Exam: Bed to Chair/Chair to Bed Question Answer Date of Assessment Author Type of Transfer Sidesteps 01/05/2025 9:40 AM EST Elyssa Mooney Level of Weld Minimum assist (75 % patient's effort) 01/05/2025 9:40 AM EST Elyssa Healy Physical/Nonphysical Assist Nonverbal cu es (demo/gestures);Verbal Cues;Additional assist utilized for safety 01/05/2025 9:40 AM EST Elyssa Healy Assistive Device Hand held assist 01/05/2025 9:40 AM E Elyssa Jones * Toilet Transfer Question Answer Date of Assessment Author Assistive Device Walker, rolling;Grab bar 01/08/2025 1:00 PM Nadira Rojo Type of Transfer Ambulation;To toilet 01/08/2025 1:07 PM EST Micki Johnson Level of Weld Minimum assist (75 % patient's effort) 01/08/2025 1:00 PM Nadira Rojo Physical/Nonphysical Assist Verbal Cues;Nonverbal cues (demo/gestures);[place] tional assist utilized for safety 01/08/2025 1:00 PM Nadira Rojo * Postural Appearance Question Answer Date of Assessment Author Posture Rounded shoulders;Forward head 01/13/2025 12:51 PM Armida Holcomb * UE Dressing Question Answer Date of Assessment Author UE Dressing Interventions gown management/adjustments, in both sitting AND standing 01/13/2025 12:51 PM Armida Holcomb UE Dressing Where Assessed Chair level 01/13 12:51 PM Armida Holcomb UE Dressing Level of Assistance Modified independent 01/13/2025 12:51 PM Armida Holcomb * Lower Extremity Dressing Question Answer Date of Assessment Author LE Dressing Interventions pt completes s ock adjustment task from chair with cuing for adapted body mechanics and figure four technique with functional anterior reach toward distal LEs 01/13/2025 12:51 PM Armida Holcomb LE Dressing Where Assessed Chair level 01/13 12:51 PM Armida Holcomb Sock Level of Assistance Modified independent;Setup 01/13/2025 12:51 PM Armida Holcomb * Toileting Question Answer Date of Assessment Author Toileting Interventions pt requires CGA for ambulation using RW [...] routine to be completed at bathroom level 01/13/2025 12:51 PM Armida Holcomb Where Assessed Toilet 01/13/2025 12:51 PM Armida Holcomb Toileting Level of Assistance Setup;Contact guard 01/13/2025 12:51 PM Armida Holcomb * Cognition Question Answer Date of Assessment Author Deficit Awareness Fully aware of deficits 2024 12:51 PM Armida Holcomb Mood/Behavior Alert;Distractible;I mpuls charlie 01/13/2025 12:51 PM Armida Holcomb Cognitive Skill Development Intervention Pt mildly distractable and intermittently benefited from modified command following and/or visual fedback (modeling) to support multi-step instruction. 01/08/2025 11:42 AM Nadira Rojo Overall Cognitive Status WFL 025 12:51 PM Armida Holcomb Arousal/Alertness Appropriate response s to stimuli 01/13/2025 12:51 PM Armida Holcomb Attention Span Appears intact 01/13/2025 12:51 PM Armida Holcomb Safety Judgment Good awareness of sa fety precautions 01/13/2025 12:51 PM Armida Holcomb Awareness of Errors Good awareness of er rors made 01/13/2025 12:51 PM Armida Holcomb Method of Communication Verbal 01/14/20 12:51 PM Armida Holcomb Single Step Commands Consistently 01/13/2025 12:51 PM Armida Holcomb Multi-Step Commands Consistently 01/13/2025 1 2:51 PM Armida Holcomb * General Question Answer Date of Assessment Author Patient/Family Goals Statement Patient would like to return home with family. 01/05/2025 9:40 AM Elyssa Figueroa * Plan Question Answer Date of Assessment Author Predicted Duration of Therapy 2 weeks 01/05/2025 9:40 AM Blade Figueroain Discharge Recommendation Outpatient PT;H ome with assistance 01/16/2025 1:27 PM Luis Astorga Equipment Recommended Rolling walker 01/16/2025 1:27 P M Luis Astorga Planned PT Interventions Balance trainin g;Bed mobility training;Gait training;Transfer training;Neuromuscular re-education;Postural re-education;Strengthen ing;Functional Mobility;Caregiver training 01/05/2025 9:40 AM Elyssa Figueroa Therapy Frequency 3 - 5 times per week 01/05/2025 9:40 AM EST Blade Healyin * Gait Training Question Answer Date of Assessment Author Device Rolling walker 2025 3:00 PM Elyssa Figueroa Apparatus Chair follow 01/13/2025 11:06 AM Diego Oates Assistance Moderate verbal cues;Moderate tactile cues;Additional assist for line management 01/13/2025 11:06 AM Diego Oates Distance 25' with RW + 210' without AD + 120' without AD (seated rest break between final 2 bouts) 01/13/2025 11:06 AM Diego Oates Gait Analysis Patient demonstrates narrow base of support, decreased stride length, decreased heel strike, slow anastasiya and forward flexed posture on RW. During ambulation without RW, Pt with increased presentation of truncal sway, increased lateral veering from midline which increased with performance of head turns. During perfromance of stepping overa a 5 inch object pt with one time LOB during SLS requiring Vicente to recover. 01/13/2025 11:06 AM Diego Oates Gait Training Interventions PT sized RW appropriately to patient's height, PT provided consistent cueing for widening NELA. 01/13/2025 11:06 AM Diego Oates * PT Assessment Question Answer Date of Assessment Author Activity Limitations Inability to ambula te independently;Inability to transfer independently;Inability to ambulate household distances;Inability to ambulate community distances;Inability to complete ADLs independently 01/05/2025 9:40 AM EST Short, Elyssa Participation Restrictions Self-care;Home management;Community leisure 01/05/2025 9:40 AM EST Short, Elyssa History Profile 3 or more personal f actors and/or comorbidities 01/05/2025 9:40 AM EST Short, Elyssa Barriers to Discharge Comorbidities 01/05/2025 9:40 AM EST Short, Elyssa Impairments Decreased endurance, ventilation, and/or gas exchange;Impaired gait dynamics/performance;Impair ed balance;Impaired functional mobility/transfers;Impaired postural/trunk control;Pain;Impaired sensation/sensory processing 01/05/2025 9:40 AM EST Short, Elyssa Evaluation/Treatment Tolerance Patient limited by pain;Patient limited by fatigue 01/05/2025 9:40 AM EST Short, Elyssa Diagnosis Impaired functional mobility 01/05/2025 9:40 AM EST Short, Elyssa Clinical Presentation Unstable and unpre dictable characteristics 01/05/2025 9:40 AM EST Short, Elyssa Clinical Decision Making High complexity 025 9:40 AM EST Short, Elyssa Rehab Potential Good, to achieve sta anabel therapy goals 01/05/2025 9:40 AM EST Short, Elyssa Activity Tolerance Tolerates 10 - 20 mi n activity with multiple rests 01/05/2025 9:40 AM EST Short, Elyssa * Ambulation Question Answer Date of Assessment Author Distance 400ft 01/16/2025 11:29 AM EST Luis Elizalde Device Rolling walker 01/16/2025 11:29 AM Luis Woods Apparatus Chair follow 01/13/2025 12:51 PM EST Armida Levin Assistance Standby assist 01/16/2025 11:29 AM Luis Woods Ambulation Comments Slow speed and sligh tly unsteady but no LOB. Cues for safe direction of RWx. 01/16/2025 11:29 AM EST Luis Elizalde * HLM Score Question Answer Date of Assessment Author HLM Daily Mobility Goal 8 01/15/2025 8:0 0 PM EST Allison Rosenbaum, DEMETRIA * Dysphagia Screen Score Answer Date of Assessment Author 0 01/04/2025 6:17 AM EST Claudy Bradford RN * Plan of Care Reviewed With Answer Date of Assessment Author patient 01/16/2025 9:36 AM EST Nimisha Oscar ma, RN * Pressure Injury Prevention (PIP) Interventions Question Answer Date of Assessment Author Pressure Reducing Devices Pillow 01/16/2025 12:0 0 PM EST Armida Oscar RN Preventative Foam Dressing Location Coccyx 01/07/2025 8:00 PM EST Zachery Villarreal RN Preventative Foam Dressing Intervention Applied 01/06/2025 8:00 AM EST Galileo Abdi RN Bed Type Acute Care Bed 01/16/2025 12:00 PM EST Armida Beckwith ams, RN * Behavioral Expectations Question Answer Date of Assessment Author Behavioral Expectations revi ewed with patient/guardian and family/partner in care? Yes 01/02/2025 3:56 PM EST Anthony Florian RN * Vital Signs Question Answer Date of Assessment Author BP 137/86 01/16/2025 12:02 PM EST Susan mcfarland, Doc Flowsheet In Pulse 82 01/16/2025 12:02 PM EST Lennox Pineda Flowsheet In Heart Rate Source Monitor 01/16/2025 3:20 AM Allison Mix RN MAP (mmHg) 103 01/16/2025 12:02 PM EST Susan mcfarland Doc Flowsheet In Patient Position Lying 01/16/2025 6:09 AM EST Allison Bernal RN * Oxygen Therapy Question Answer Date of Assessment Author SpO2 95 01/16/2025 12:02 PM EST Lennox Pineda Flowsheet In FiO2 (%) 40 01/03/2025 5:00 PM EST Elyssa Christiansen ETCO2 (mmHg) 29 01/03/2025 5:00 PM EST Elyssa Christiansen Vent Mode PS/CPAP 01/03/2025 5:00 PM EST Elyssa Christiansen Pulse Oximetry Type Intermittent 01/16/2025 3:20 AM Allison Puckett RN Patient Activity During SpO2 Measurement At rest 01/16/2025 3:20 AM Allison Mix RN Oximetry Probe Site Location Left Digit 2025 10:15 AM Imelda Calvo RN * Height and Weight Question Answer Date of Assessment Author Height 74.016 01/02/2025 7:48 PM Allison Fan RN Height Method Stated 01/02/2025 7:48 PM Allison Cavanaugh RN IBW/kg (Calculated) 82.24 01/02/2025 7:48 PM Allison Puckett RN * Pain 2 Question Answer Date of Assessment Author Pain Score 2 1 01/15/2025 8:25 AM EST Marshall Hopper * Neurological Question Answer Date of Assessment Author Neuro (WDL) X 01/07/2025 12:50 AM Isabel Guallpa RN Neuro Additional Assessments [place] Coma Scale 01/07/2025 12:50 AM Isabel Guallpa RN Reflexes Cough;Gag 01/04/2025 4:00 AM EST Eleazar Mac RN * Cardiac Question Answer Date of Assessment Author Ectopy Premature ventricula r contractions 01/06/2025 4:00 AM EST Sarah Montanez RN Ectopy Frequency Rare 01/05/2025 4:00 PM EST Leo Vinson RN Cardiac Regularity Regular 01/06/2025 4:00 PM EST Galileo Abdi log getter (WDL) X 01/07/2025 12:50 AM Isabel Guallpa RN * Plastic Mould Maker Question Answer Date of Assessment Author Telemetry Strip Reviewed Yes, I have reviewed and acknowledged. 01/06/2025 8:10 PM Isabel Guallpa RN Bedside Plastic Mould Maker On Yes 01/07/2025 12:50 AM Isabel Guallpa RN Bedside Cardiac Audible Yes 01/07/2025 12:50 AM Isabel Guallpa RN Bedside Cardiac Alarms Set Yes 01/07/2025 12:50 AM Isabel Guallpa RN * Pacemaker Question Answer Date of Assessment Author Pacemaker No 01/16/2025 12:00 PM Armida Hernandez RN * Gastrointestinal Question Answer Date of Assessment Author Most Recent BM Date [id number] 01/15/2025 8 :00 PM Allison Mix RN Passing Flatus Yes 01/16/2025 12:00 PM Armida Parish RN Abdominal Tenderness Soft;Tenderness 01/16/2025 12:00 PM Armida Parish RN Bowel Sounds (All Quadrants) Present 01/16/2025 12:00 PM Armida Parish RN Anus/Rectum Evaluation and Tone Unable to assess 01/16/2025 4:22 AM EST Allison Rosenbaum RN Gastrointestinal (WDL) X 12:00 PM Armida Parish RN Abdomen Inspection Soft;Rounded;Surgic al scar 01/16/2025 12:00 PM Armida Parish RN GI Symptoms None 01/16/2025 12:00 PM Armida Parish RN Nausea Precipitating Factors Movement 01/04/2025 8:57 AM EST Tila Vazquez RN Relieved by Laxative 01/07/2025 8:00 AM EST Fariha Hill RN Gastrointestinal Additional Assessments No 01/16/2025 12:00 PM Armida Parish RN * Peripheral Vascular Question Answer Date of Assessment Author Peripheral Vascular (WDL) X 01/16/2025 12:00 PM Armida Parish RN Generalized Edema +1 01/16/2025 12: 00 PM Armida Parish RN Perineal Edema Non-pitting 2025 4:00 AM EST Daylin Taylor RN RUE Edema +1 01/13/2025 3:35 PM Rodney Santamaria RN RLE Edema +2 01/16/2025 12:00 PM Armida Parish RN LUE Edema +1 01/13/2025 3:35 PM Rodney Santamaria, RN LLE Edema +2 01/16/2025 12:00 PM Armida Parish RN Capillary Refill Less than/equal to 2 seconds (All extremities) 01/16/2025 12:00 PM EST Armida Oscar RN Pulses R radial;L radial;R pedal;L pedal 01/16/2025 12:00 PM Armida Parish RN Cyanosis None 01/16/2025 12:00 PM Armida Parish RN Edema Generalized;Right lower extremity;Left lower extremity 01/16/2025 12:00 PM Armida Parish RN * RUE Neurovascular Assessment Question Answer Date of Assessment Author RUE Capillary Refill Less than/equal to 2 seconds 01/16/2025 12:00 PM Armida Parish RN R Radial Pulse +2 01/16/2025 12:00 PM EST Armida Beckwith ams, RN * LUE Neurovascular Assessment Question Answer Date of Assessment Author LUE Capillary Refill Less than/equal to 2 seconds 01/16/2025 12:00 PM Armida Parish RN L Radial Pulse +2 01/16/2025 12:00 PM EST Armida Beckwith ams, RN * RLE Neurovascular Assessment Question Answer Date of Assessment Author RLE Capillary Refill Less than/equal to 2 seconds 01/16/2025 12:00 PM Armida Parish RN R Posterior Tibial Pulse +1 01/13/2025 3:35 PM EST Rodney Watts RN R Pedal Pulse +1 01/16/2025 12:00 PM EST Armida Cueva ms, RN * LLE Neurovascular Assessment Question Answer Date of Assessment Author LLE Capillary Refill Less than/equal to 2 seconds 01/16/2025 12:00 PM Armida Parish RN L Posterior Tibial Pulse +1 01/13/2025 3:35 PM EST Rodney Watts RN L Pedal Pulse +1 01/16/2025 12:00 PM EST Armida Cueva ms, RN * Musculoskeletal Question Answer Date of Assessment Author RUE Full movement 01/16/2025 12:00 PM Armida Parish RN RLE Full movement;Swelling 01/16/2025 12:00 PM Armida Parish RN LUE Full movement 01/16/2025 12:00 PM Armida Parish RN LLE Full movement;Swelling 01/16/2025 12:00 PM Armida Parish RN Musculoskeletal (WDL) X 01/16/2025 12:00 PM Armida Parish RN Musculoskeletal Additional Assessments No 01/16/2025 12:00 PM Armida Parish RN * Urine Assessment Question Answer Date of Assessment Author Urinary Incontinence No 01/16/2025 12:00 PM Armida Parish RN * Genitalia Question Answer Date of Assessment Author Male Genitalia Intact 01/16/2025 12:00 PM EST Armida Beckwith ams, RN * Psychosocial Question Answer Date of Assessment Author Psychological state Calm;Cooperative 01/16/2025 12:00 PM Armida Parish RN Family Behaviors Calm;Cooperative 01/16/2025 12:00 PM Armida Parish RN Needs Expressed Denies 01/16/2025 12:00 PM Armida Pinon RN Psychosocial (WDL) WDL 01/16/2025 12:00 PM Armida Flynn RN Psychosocial Additional Assessments No 01/16/2025 12:00 PM Armida Parish R N Ability to Express Feelings Able to express 01/16/2025 12:00 PM Armida Parish RN Ability to Express Needs Able to express 01/16/2025 12 :00 PM Armida Parish RN Ability to Express Thoughts Able to express 01/16/2025 12:00 PM Armida Parish RN Length of Time/Family Visitation Overnight 01/16/2025 12:00 PM Armida Parish R N Ability to Understand Others Understands 01/16/2025 12:00 PM Armida Parish R N * Intake Question Answer Date of Assessment Author [address] 01/16/2025 6:03 AM EST Allison Gavin RN I.V. 575 01/15/2025 6:33 AM EST Mirtha Luong RN Saline Flush (mL) 50 01/05/2025 5:00 AM EST Shaka Burciaga RN * Silva Fall Risk Question Answer Date of Assessment Author History of Falling, Immediat e or Within 3 Months 0 01/16/2025 12:00 PM Armida Parish R N Secondary Diagnosis 15 01/16/2025 12:00 PM Armida Quiñones RN Ambulatory Aid 0 01/16/2025 12:00 PM EST Armida Beckwith ams, RN Intravenous Therapy/Heparin Lock 20 01/17/20 25 12:00 PM Armida Parish RN Gait/Transferring 0 01/16/2025 12:00 PM Armida Parish RN Mental Status 0 01/16/2025 12:00 PM EST Armida Cueva ms RN Silva Fall Risk Score 35 01/16/2025 12:00 PM Armida Parish RN * Rosendo Scale Question Answer Date of Assessment Author Sensory Perceptions 4 01/16/2025 12:00 PM Armida Quiñones RN Moisture 4 01/16/2025 12:00 PM Armida Hernandez RN Activity 3 01/16/2025 12:00 PM Armida Hernandez RN Mobility 3 01/16/2025 12:00 PM Armida Hernandez RN Nutrition 3 01/16/2025 12:00 PM Armida Hernandez RN Friction and Shear 3 01/16/2025 12:00 PM Armida Flynn RN Rosendo Scale Score 20 01/16/2025 12:00 PM Armida Flynn RN * BSA (Calculated - sq m) Answer Date of Assessment Author 2.26 01/16/2025 6:10 AM EST Elver Medel CNA * BMI (Calculated) Answer Date of Assessment Author 27.56 01/16/2025 6:10 AM EST Elver Medel CNA * Pain Location Answer Date of Assessment Author Abdomen 01/15/2025 6:33 AM Mirtha Bright RN * Cardiac Question Answer Date of Assessment Author Unloader On No 01/16/2025 12:00 PM Armida Parish RN Telemetry Audible No 01/09/2025 4:00 AM Daylin Jones RN Telemetry Alarms Set No 01/09/2025 4:00 AM Daylin Elder RN Telemetry Box Number [id number] 01/08/2025 8:[address] Delvalle Rosibel Cardiac (WDL) WDL 01/16/2025 12:00 PM EST Armida Cueva ms, RN Pacemaker No 01/16/2025 12:00 PM EST Armida Mora RN Cardiac Regularity Regular 01/16/2025 12:00 PM Armida Flynn RN Heart Sounds S1, S2 01/16/2025 12:00 PM Armida Hernandez RN Telemetry/Plastic Mould Maker No 01/16/2025 12:0 0 PM Armida Parish RN Jugular Venous Distention (JVD) No 12:00 PM Armida Parish RN Cardiac Symptoms None 01/16/2025 12:00 PM Armida Parish RN * Respiratory Question Answer Date of Assessment Author Artificial airway present Yes 01/04/2025 4:00 AM EST Eleazar Bradford RN Bilateral Breath Sounds Clear;Diminished 025 12:00 PM Armida Parish RN Respiratory Pattern Regular 01/16/2025 1 2:00 PM Armida Parish RN Chest Assessment Symmetrical;Chest expansion symmetrical 01/16/2025 12:00 PM Armida Parish RN Cough Cries with cough 01/05/2025 4:00 AM EST Shaka Ashraf RN Respiratory ([facility]) X 01/16/2025 12: 00 PM Armida Parish RN Respiratory Additional Assessments No 01/16/2025 12:00 PM Armida Parish RN Respiratory Effort Unlabored 01/16/2025 12 :00 PM Armida Parish RN Respiratory Depth/Rhythm Regular 01/16/2025 12:00 PM Armida Parish RN * RLE ROM Assessment Question Answer Date of Assessment Author RLE Assessment [facility] 01/05/2025 9:40 AM EST Kavita cisneros Elyssa * LLE ROM Assessment Question Answer Date of Assessment Author LLE Assessment [facility] 01/05/2025 9:40 AM EST Kavita rt Elyssa * Vitals Question Answer Date of Assessment Author Temp 97.9 01/16/2025 12:02 PM EST Gree n, Shonda S, [facility] Temp src Oral 01/16/2025 12:02 PM EST Gree n, Shonda S, [facility] Resp 18 01/16/2025 12:02 PM EST Gree n, Shonda S, [facility] Weight 3435.65 01/16/2025 6:10 AM EST Thorn marlon, Dynasty K, [facility] BP Location Left arm 01/16/2025 12:02 PM EST Gree n, Shonda S, [facility] BP Method Automatic 01/16/2025 12:02 PM EST Gree n, Shonda S, [facility] Weight Method Standing scale 01/16/2025 6:10 AM EST Th gerard, Dynasty K, [facility] Oxygen Therapy None 01/16/2025 12:02 PM EST Gr een, Shonda S, [facility] * Point of Care Tests Question Answer Date of Assessment Author Provider Role Resident 01/10/2025 8:15 AM EST Rosibel Bangura Blood Glucose Meter 158 01/16/2025 1 2:02 PM EST Mauricio Kimbroughra S, [facility] Provider Name Jayjay Quesada MD 01/10/2025 8:15 AM EST Rosibel Almazan Method of Communication Face to face 01/10/2025 8:15 A M Rosibel Guillen Reason for Communication Review case;Evaluate;Patien t request 01/10/2025 8:15 AM Rosibel Guillen Name of Nurse Notified of Blood Glucose Results (First and Last) Augusta Oscar 01/16/2025 12:02 PM EST Luis E Shonda S, [facility] Glucose Sample Retrieved From Finger stick 01/16/2025 12:02 PM EST Mauricio Kimbroughra S, [facility] * Vision - Basic Assessment Question Answer Date of Assessment Author Patient Visual Report no acute visual changes 01/05/2025 9:02 AM EST Armida Joyce Current Vision Intact 01/05/2025 9:02 AM EST Armida Baig * Percent Meals Eaten (%) Answer Date of Assessment Author 66 01/16/2025 12:30 PM Eulogio Parish, RN * Advance Directives (For Healthcare) Question Answer Date of Assessment Author Advance Directive Patient would not li ke information 01/02/2025 3:56 PM EST Jolene Florian RN Pre-existing DNR/DNI Order No 01/02/2025 3:56 PM Jolene Vasquez RN Information Provided on Healthcare Directives No 01/02/2025 3:56 PM Saul Vasquez RN Patient Requests Assistance No 01/02/2025 3:56 PM Jolene Vasquez RN Have you reviewed your Advance Directive and is it valid for this stay? No 01/02/2025 3:56 PM Jolene Vasquez RN * Nutrition Screen Question Answer Date of Assessment Author Difficulty Chewing or Swallowing No 01/03/20 3:56 PM Jolene Vasquez RN Burn, Pressure Injury, or Non-Healing Wound No 01/02/2025 3:56 PM Jolene Vasquez RN Home Tube Feeding or Total Parenteral Nutrition (TPN) No 01/02/2025 3:56 PM Akilah Vasquez RN Food allergy, Restorationist, or Cultural nutrition needs No 01/02/2025 3:56 PM Jung Vasquez RN * Trauma/Abuse Assessment Question Answer Date of Assessment Author Physical Abuse Denies 01/02/2025 3:56 PM Jolene Yi RN Verbal Abuse Denies 01/02/2025 3:56 PM Jolene David RN * Values/Beliefs Question Answer Date of Assessment Author Cultural Requests During Hospitalization NA 01/02/2025 3:56 PM Jolene Vasquez RN Spiritual Requests During Hospitalization agrees to blood transfusion 2025 10:22 AM EST Imelda Lucas RN Unable to assess No 01/02/2025 3:56 PM Jolene Vasquez RN * Art Line (1) Question Answer Date of Assessment Author Arterial Line MAP (mmHg) 124 01/05/2025 9:00 AM Leo Brown RN Arterial Line BP 183/90 01/05/2025 9:00 AM EST Leo Vinson RN PPV 3 01/03/2025 4:00 PM EST Elyssa Christiansen * Art Line (2) Question Answer Date of Assessment Author Arterial Line BP 2 162/82 01/06/2025 10:00 AM Galileo Hunter RN Arterial Line MAP (mmHg) 100 01/06/2025 10:00 AM Galileo uFller RN * Genitourinary Question Answer Date of Assessment Author Genitourinary (WDL) WDL 01/16/2025 12:00 PM E Armida Schneider RN Genitourinary Symptoms None 01/16/2025 12:00 P M Armida Parish RN * Neurological Question Answer Date of Assessment Author Level of Consciousness Alert 12:00 PM Armida Parish RN Orientation Level Oriented X4 01/16/2025 12: 00 PM Armida Parish RN Cognition Follows commands;Appropriate judgement 01/16/2025 12:00 PM Armida Parish RN Speech Clear 01/16/2025 12:00 PM Armida Parish RN L Pupil Reaction Brisk 01/15/2025 8:00 PM Vanda Samuels L Pupil Size (mm) 3 01/15/2025 8:0 0 PM Vanda Samuels R Pupil Reaction Brisk 01/15/2025 8:00 PM Vanda Samuels Pupil Size (mm) 3 01/15/2025 8:0 0 PM Vanda Samuels LUEulogio Motor Response Responds to commands 01/17/20 25 12:00 PM Armida Parish RN LLE Motor Response Responds to commands 01/17/20 25 12:00 PM Armida Parish RN RUE Motor Response Responds to commands 01/17/20 25 12:00 PM Armida Parish RN RLE Motor Response Responds to commands 01/17/20 25 12:00 PM Armida Parish RN Neuro (WD) X 01/16/2025 12:00 PM Armida Parish RN Swallow Able to swallow toño ds and liquids without difficulty 01/16/2025 12:00 PM Armida Parish RN CIWA Alcohol Withdrawal Assessment No 01/16/2025 12:00 PM Armida Parish RN R Hand Grasp Moderate 01/16/2025 12:00 PM Armida Parish RN L Hand Grasp Moderate 01/16/2025 12:00 PM Armida Parish RN R Foot Dorsiflexion Moderate 01/16/2025 1 2:00 PM Armida Parish RN L Foot Dorsiflexion Moderate 01/16/2025 1 2:00 PM Armida Parish RN R Foot Plantar Flexion Moderate 5 12:00 PM Armida Parish RN L Foot Plantar Flexion Moderate 12:00 PM Armida Parish RN R Pupil Shape Round 01/15/2025 8:00 PM Vanda Samuels L Pupil Shape Round 01/15/2025 8:00 PM Vanda Samuels Neuro Symptoms Tremors 01/16/2025 12:00 PM Armida Parish RN Pupil Assessment Yes 01/16/2025 12:0 0 PM Armida Parish RN Hand Grasp/Motor Function/Sensation Assessment Grasp;Dorsiflexion;Beny ntar flexion;Motor response 01/16/2025 12:00 PM Armida Parish RN Neuro Additional Assessments No 01/16/2025 12:00 PM Armida Parish RN * Prior Function Question Answer Date of Assessment Author Level of Mobility Ambulatory- househol d only 01/05/2025 9:02 AM Armida Jean Baptiste Mobility Weld Independent gait without device 01/05/2025 9:02 AM Armida Jean Baptiste History of Falls Yes 01/05/2025 9:02 AM Armida Bravo ADL Performance Needs assistance 01/05/2025 9:02 AM Armida Oshea Receives Help From Spouse 01/05/2025 9:02 AM Armida Jean Baptiste Bathing Needs assist 01/05/2025 9:02 AM Armida Lin Upper Body Dressing Independent 01/05/2025 9:02 AM Armida Oshea Lower Body Dressing Needs assist 01/05/2025 9:02 AM Armida Oshea Grooming Independent 01/05/2025 9:02 AM Armida Lin Toileting Independent 01/05/2025 9:02 AM Armida Lin Eating Independent 01/05/2025 9:02 AM Armida Lin Home Management Skills Independent 01/05/2025 9:02 AM Armida Jean Baptiste * RUE ROM Assessment Question Answer Date of Assessment Author RUEulogio Assessment [facility] 01/05/2025 9:02 AM Armida Rosales * LUE ROM Assessment Question Answer Date of Assessment Author LUEulogio Assessment [facility] 01/05/2025 9:02 AM Armida Rosales * Safe Environment Question Answer Date of Assessment Author 37-Pin Connection [Bed and Wall] Yes 01/16/20 8:39 PM Vanda Samuels Arm Bands On ID 01/16/2025 12:00 PM Armida Hernandez RN Side Rails/Bed Safety 05/1601/16/2025 12:00 PM Armida Parish RN NonSkid Footwear On 01/16/2025 12:00 PM Armida Parish RN The Patient's Environment is Safe Yes 025 12:00 PM Armida Parish RN Head of Bed Angle 30 2025 4:00 AM Daylin Jones RN Bed Foot Left Rail Up State No 01/16/2025 3: 00 PM Armida Parish RN Bed Head Right Rail Up State Yes 01/16/2025 3 :00 PM Armida Parish RN Bed Head Left Rail Up State Yes 01/16/2025 3: 00 PM Armida Parish RN Bed Foot Right Rail Up State No 01/16/2025 3 :00 PM Armida Parish RN Bed Exit System Activate Status No 3:00 PM Armida Parish RN Bed Brake State Yes 01/16/2025 3:00 PM Armida Farrell ams, RN Bed Low Height State Yes 01/16/2025 3:00 PM Armida Quiñones RN Chair Exit System Activate Status No 025 8:39 PM Vanda Samuels * Fall Risk Interventions Question Answer Date of Assessment Author Safety Promotion/Fall Prevention activity supervised;assistive device/personal items within reach;clutter-free environment maintained;fall prevention program maintained;lighting adjusted;mobility aid in reach;nonskid shoes/slippers when out of bed;room organization consistent;safety round/check completed;toileting scheduled 01/16/2025 12:00 PM Armida Parish RN Enhanced Safety Measures room near unit station;education provided 01/16/2025 12:00 PM Armida Parish RN Toilet Every 2 Hours-In Advance of Need Yes 01/16/2025 12:00 PM Armida Parish RN Hourly Visual Checks Awake;In chair 01/16/2025 3:00 PM Armida Parish RN Room Door Open Deferred to promote rest;Deferred to decrease stimulation 01/16/2025 12:00 PM Armida Parish RN Gait Belt Used For Transfers Not applicable 01/16/2025 12:00 PM Armida Parish RN Fall Bundle Components Personal belongin gs within reach;Call light within reach;Overbed table within reach;Bed in lowest position;Bed wheels locked;Non-skid footwear on if up in chair or ambulating;Fall risk sign on door;Staff to remain with patient during toileting 01/16/2025 12:00 PM Armida Parish RN * Mobility Question Answer Date of Assessment Author Range of Motion active ROM (range of motion) encouraged 01/16/2025 12:00 PM Armida Parish RN Activity Management up in chair 01/16/2025 2 :00 PM Armida Parish RN Activity Assistance Provided independent 01/16/2025 5:15 AM Allison Mix RN Assistive Device Utilized front wheel walker 01/14/2025 8:00 PM Mirtha Bright RN Body Position [place] chair;heels elevated;legs elevated;weight shifting 01/16/2025 2:00 PM Armida Parish RN VTE Prevention/Management bilateral;lower extremity;SCDs (sequential compression devices) off;medication 01/16/2025 4:00 PM Armida Parish RN Head of Bed (HOB) Positioning HOB elevated 01/16/2025 12:00 PM Armida Parish RN Distance Ambulated (ft) 700 01/14/20 25 11:06 AM Bree Patton RN Ambulation Response Tolerated well 01/16/2025 5 :15 AM Allison Mix RN Repositioned Sitting;Up in chair 01/16/2025 2 :00 PM Armida Parish RN Head of Bed Elevated Self regulated 01/16/2025 12:00 PM Armida Parish RN Heels/Feet Heels elevated off bed;Foot of bed elevated 01/16/2025 12:00 PM Armida Parish RN Reason for Removing Anti-Embolism Device Ambulating 01/16/2025 4:00 AM Allison Mix RN Positioning Frequency Able to turn self 01/17/20 2:00 PM Armida Parish RN * Hygiene Question Answer Date of Assessment Author Perineal Care absorbent pad 01/15/2025 10:20 PM Allison Mix RN Bathing/Skin Care dressed/undressed 01/16/2025 1 0:00 AM Shonda Reveles CNA Skin Protection incontinence pads utilized 01/15/2025 8:00 PM Allison Mix RN Oral Care oral rinse provided;education provided 01/15/2025 8:00 PM Allison Mix RN Oral Care (Yes/No) Yes 01/15/2025 8: 00 PM Allison Mix RN Cruz Care Castile Wipes Used Yes;Education provided;Perineum cleansed with soap/water prior 01/08/2025 6:00 PM Rosibel Guillen CHG (Chlorhexidine Gluconate) Hygiene Wipes 01/16/2025 10:00 AM Shonda Reveles CNA CHG Treatment Refused-Action Taken Previous patient education reinforced 01/07/2025 4:00 PM Fariha Pitts RN * Precautions Question Answer Date of Assessment Author Isolation Precautions precautions maintained 06/2024 12:00 PM Armida Parish RN Precautions Environmental surveillance;Fall risk 01/16/2025 12:00 PM Armida Parish RN * Family/Significant Other Communication Question Answer Date of Assessment Author Family/Significant Other Update Visiting 8:39 PM Vanda Samuels * Comfort and Environment Interventions Question Answer Date of Assessment Author Comfort Repositioned 01/16/2025 2:00 PM Armida Parish RN * Miscellaneous Devices Question Answer Date of Assessment Author Equipment On:;abdominal binder 01/07/2025 8:00 AM E Fariha Glynn RN Abdominal Binder Remains in place 01/07/2025 8:00 PM E Zachery Welsh RN Abdominal Binder Care Skin assessed 01/07/2025 8:00 PM Zachery Conn RN * Safety Equipment at Bedside Question Answer Date of Assessment Author Standard Bedside Safety Ambu bags in hallway;Oxygen available and working;Suction available, setup and working 01/16/2025 12:00 PM Armida Parish RN Additional Bedside Safety Bed in locked and low position;Clutter free environment 01/16/2025 12:00 PM Armida Pairsh RN * Pain 4 Question Answer Date of Assessment Author Ravi LIZ Pain Rating 4 4 01/15/2025 8:25 AM Marshall Noriega * Pain 5 Question Answer Date of Assessment Author Ravi LIZ Pain Rating 5 6 01/15/2025 8:25 AM Marshall Noriega * Pain 6 Question Answer Date of Assessment Author Ravi LIZ Pain Rating 6 6 01/15/2025 8:25 AM Marshall Noriega * IBW/kg (Calculated) Male Answer Date of Assessment Author 82.24 01/02/2025 7:48 PM Allison Mix RN * IBW/kg (Calculated) Female Answer Date of Assessment Author 77.74 01/02/2025 7:48 PM Allison Mix RN * Consults Question Answer Date of Assessment Author Integrative Medicine Consult Needed No 01/02/2025 3:56 PM Jolene Vasquez RN Pastoral Care Consult Needed No 01/02/2025 3 :56 PM Jolene Vasquez RN Social Services Consult Needed No 01/02/2025 3:56 PM Jolene Vasquez RN * Oral/Motor Question Answer Date of Assessment Author Dentition Adequate 2025 10:15 AM Imelda Gonzales RN * Therapy Consults Question Answer Date of Assessment Author PT Evaluation Needed 2 01/02/2025 3:[address] Thorpe, Jolene, RN OT Evaluation Needed 2 01/02/2025 3:56 PM E Jolene Ratliff RN WIENER PACKER Evaluation Needed 2 01/02/2025 3:56 PM Jolene Vasquez RN * Assistive Devices Question Answer Date of Assessment Author Assistive Devices None 01/02/2025 3:56 PM Jolene Vasquez RN * Provider Notification Question Answer Date of Assessment Author Response See orders 01/10/2025 8:15 AM EST Rosibel Delvalle Notification Time [id number] 01/10/2025 6:08 AM EST Anay Rodriguez RN * Alarm Limits Question Answer Date of Assessment Author HR Alarm Limit Low 50 01/06/2025 8:10 PM Isabel Guallpa, RN HR Alarm Limit High 120 01/06/2025 8:10 PM Isabel Staples, RN RR Alarm Limit Low 8 01/06/2025 8:10 PM Isabel Guallpa, RN RR Alarm Limit High 30 01/06/2025 8:10 PM Isabel Staples, RN Apnea Alarm Delay 20 01/06/2025 8:10 PM Isabel Guallpa, RN SpO2 Alarm Limit Low 90 01/06/2025 8:10 PM E Isabel Lovelace, RN SpO2 Alarm Limit High 100 01/06/2025 8:10 PM Isabel Guallpa, RN BP Systolic Alarm Limit Low 90 01/06/2025 8: 10 PM Isabel Guallpa, RN BP Systolic Alarm Limit High 170 01/06/2025 8 :10 PM Isaebl Guallpa, RN BP Diastolic Alarm Limit Low 50 01/06/2025 8 :00 AM Galileo Fuller RN BP Diastolic Alarm Limit High 90 01/06/2025 8:00 AM Galileo Fuller RN BP Mean Alarm Limit Low 60 01/06/2025 8:10 P M Isabel Guallpa, RN BP Mean Alarm Limit High 110 01/06/2025 8:10 PM Isaebl Guallpa RN * Transfer of Nursing Care Question Answer Date of Assessment Author Nurse Report Given To Imelda AUGUSTIN 2025 10:20 AM Imelda Calvo RN Transferred Via Bed 2025 10:20 AM Imelda Barber RN Handoff Received From yellow sheet 2025 10:20 AM Imelda Calvo RN * End of Shift Review Question Answer Date of Assessment Author Shift Review Complete Yes 01/16/2025 8:00 AM Armida Parish RN Shift Report Received From Allison Espana RN 01/16/2025 8:0 0 AM Armida Parish RN Shift Report Given To Armida Oscar RN 01/16/2025 8:00 AM Armida Parish RN * Intraop Skin Assessment Question Answer Date of Assessment Author Presence of skin impairment on admission to OR? No 2025 10:20 AM Imelda Calvo RN Pressure relief dressing in place? Yes 01/03/2025 8:29 AM Ritu Carlisle RN Underlying skin checked? Yes 025 8:29 AM Ritu Carlisle RN Pressure Reducing Devices Preventative foam dressing 01/03/2025 8:29 AM Ritu Carlisle RN Preventative Foam Dressing Location Coccyx 01/03/2025 8:29 AM Ritu Carlisle RN Preventative Foam Dressing Intervention Applied 01/03/2025 8:29 AM Ritu Carlisle RN * Hourly Rounding Question Answer Date of Assessment Author Hourly Rounding Complete Per Guideline Yes 01/16/2025 3:00 PM Armida Parish RN * Central/PICC Line Removal Question Answer Date of Assessment Author Time-out Dual Sign Off 2nd Health Care Manager Wilman AUGUSTIN 2025 5:00 AM Daylin Jones RN Supplies Present Suture removal kit;Petroleum gauze;Sterile gauze;Occlusive dressing 2025 5:00 AM Daylin Jones RN Central/PICC Line Removal Safety Precautions Patient instructed to hold breath/Valsalva;Patient in Trendelenburg position;Alternate IV access present 2025 5:00 AM Daylin Jones RN * Routine Extubation Question Answer Date of Assessment Author Extubation Safety Precautions Verified not terminal extubation ;Ensure discontinuation of applicable sedatives/pain infusions;Ensure suction supplies available and properly set up;Appropriate oxygen delivery present 01/03/2025 5:18 PM Elyssa Landa * Patient Violence Risk Assessment Question Answer Date of Assessment Author History of Violence: In the past 12 hours has the PATIENT exhibited any of the following? None 01/16/2025 12:00 PM Armida Parish RN Potential for Violence: In the past 12 hours has the PATIENT exhibited any of the following? None 01/16/2025 12:00 PM Armida Parish RN Risk No identified risk 01/16/2025 12:00 PM Armida Flynn RN History of Violence: In the past 12 hours has a PARTNER IN CARE of the patient exhibited any of the following? None 01/16/2025 12:00 PM Armida Parish R N * Skin Assessment Question Answer Date of Assessment Author Skin Assessment Location Lips 01/03/2025 3:01 PM Blaine Sinha Color & Characteristics Normal/ Supple 01/03/2025 3:01 PM Blaine Sinha Related Device Anchorfast 01/03/2025 3:01 PM Blaine Thompson Skin Integrity Checked Yes 01/03/2025 3:01 PM Blaine Sinha * Malnutrition Identification Question Answer Date of Assessment Author In Context Of Chronic illness/ injury 01/08/20 1:[address] Meets Criteria For Moderate malnutrition 1:[address] Based On Mild muscle mass loss;Moderately reduced energy intake 01/07/2025 1:[address] Present on Admission Yes 01/07/2025 1:[address] Unable to Complete Exam Weekend coverage 9:30 AM Georgina Bernard LD Malnutrition Identified Yes 01/08/20 1:[address] * Physical Exam Performed On Question Answer Date of Assessment Author Temples (muscles) Mild 01/07/2025 1:[address] Clavicle (muscle) Mild 01/07/2025 1:[address] Shoulder (muscle) None 01/07/2025 1:00 PM EST Yari Reilly, RD Interosseous (muscle) None 01/07/2025 1:00 PM EST Yari Reilly, RD Orbital (fat) None 01/07/2025 1:00 PM EST Yari Lynne, RD Triceps (fat) Mild 01/07/2025 1:00 PM EST Yari Lynne, RD Energy Intake <75% EER x >1 month 01/07/2025 1:00 PM E Yari Flores, RD * Mobility Question Answer Date of Assessment Author Ambulation Stand by;Independent 01/15/2025 8:00 PM E Allison Caruso RN * Oxygen Therapy Question Answer Date of Assessment Author Oximetry Probe Site Changed No 01/13/2025 3: 51 PM Dayna Worthington RN * Restart Vitals Timer Answer Date of Assessment Author Yes 01/16/2025 12:02 PM EST Marlene Kimbrough [facility] * Neurological Question Answer Date of Assessment Author Neuro ([facility]) [facility] 2025 1:12 PM EST Rodney Vázquez RN * Cardiac Question Answer Date of Assessment Author Cardiac ([facility]) [facility] 2025 1:12 PM EST Rodney Vance RN * Gastrointestinal Question Answer Date of Assessment Author Gastrointestinal ([facility]) [facility] 2025 1:12 PM Rodney Bain RN * IBW/kg (Calculated) Answer Date of Assessment Author 82.24 01/02/2025 7:48 PM Allison Mix RN * STOP-Bang Questionnaire Question Answer Date of Assessment Author Do you snore loudly? 0 01/02/2025 3:56 PM E Jolene Ratliff RN Do you often feel tired or fatigued after your sleep? 0 01/02/2025 3:56 PM Akilah Vasquez RN Has anyone ever observed you stop breathing in your sleep? 0 01/02/2025 3:56 PM Jung Vasquez RN Do you have or are you being treated for high blood pressure? 0 01/02/2025 3:56 PM Jolene Mueller pe, RN Is BMI greater than 35 kg/m2? 0=No 01/02/2025 3:56 PM Jolene Vasquez RN Age older than 50 years old? 0=No 01/02/2025 3 :56 PM Jolene Vasquez RN Is your neck circumference g reater than 17 inches (Male) or 16 inches (Female)? 0 01/02/2025 3:56 PM Jolene Vasquez RN Gender - Male 1=Yes 01/02/2025 3:56 PM Joelne Mueller pe, RN STOP-Bang Total Score 1 01/02/2025 3:56 PM Jolene Vasquez RN Recent BMI (Calculated) 29.9 01/02/2025 3:56 P M Jolene Vasquez RN * Patient Answered Questionnaire Question Answer Date of Assessment Author Exercise tolerance Walk 1-2 blocks on level ground without stopping 01/02/2025 3:56 PM Jolene Vasquez RN Implanted devices 0 01/02/2025 3:56 PM Jolene Vasquez RN * Feeding Question Answer Date of Assessment Author Feeding Interventions pt chris's function al strength and dexterity needed for food tray set up and self feeding routine completion from tray table, intermittent tremulous motor patterns noted throughout intentional grasping and manipulation of items involving both fine and gross motor movement 01/13/2025 12:51 PM Armida Holcomb Feeding Level of Assistance Modified independent 01/13/2025 12:51 PM Armida Holcomb Feeding Where Assessed Chair Level 12:51 PM Armida Holcomb * Grooming Question Answer Date of Assessment Author Grooming Interventions pt andreas functio nal strength, endurance/activity tolerance, and balance needed for simple grooming task completion standing at sink with CGA using RW 01/13/2025 12:51 PM Armida Holcomb Grooming Where Assessed Standing sinkside 2024 12:51 PM Armida Holcomb Grooming Level of Assistance Setup;Contact guard 01/13/2025 12:51 PM Armida Holcomb * Bathing Question Answer Date of Assessment Author MCLEOD Bathing Level of Assistance Moderate assistance 01/05/2025 9:02 AM Armida Jean Baptiste Bathing Level of Assistance Maximum assistance 01/05/2025 9:02 AM Armida Jean Baptiste * Stairs Question Answer Date of Assessment Author Assistance Contact guard 01/13/2025 11:06 AM EST Diego Craft Rails Single 01/13/2025 11:06 AM EST Diego Ross Device No device 01/13/2025 11:06 AM EST Diego Ross * Dynamic Standing Balance Question Answer Date of Assessment Author Dynamic Standing Level of Assistance Independent 01/16/2025 11:29 AM Luis Astorga Dynamic Standing-Balance Support Left upper extremity support;Right upper extremity support 01/08/2025 1:07 PM Micki Galloway Dynamic Standing-Balance Anterior/Posterior weight shifts;Lateral weight shifts 01/08/2025 1:07 PM Micki Galloway * General Question Answer Date of Assessment Author Next OT Reassessment 33033 01/05/2025 9:44 AM Armida Munguia Patient/Family Goals Statement Patient would like to return home when able 01/05/2025 9:44 AM Armida Jean Baptiste * Home Living Question Answer Date of Assessment Author Home Type House 01/05/2025 9:02 AM Armida Lin Number of Stairs 4 01/05/2025 9:02 AM Armida Bravo Bathroom: Tub/Shower Tub/Shower combo 01/05/2025 9:02 AM Armida Jean Baptiste Bathroom: Toilet Standard 01/05/2025 9:02 AM Armida Bravo Bathroom: Accessibility Accessible via walker 01/06/20 9:02 AM Armida Jean Baptiste Home Living Comments Patient had been to [facility] in September, and was still receiving outpatient PT. 01/05/2025 9:02 AM Armida Jean Baptiste Home Layout One level;Stairs to enter without rails 01/05/2025 9:02 AM Armida Jean Baptiste Home Adaptive Equipment Rollator 01/05/2025 9:02 A Armida Layne Lives With Spouse 01/05/2025 9:02 AM Armida Lin * Date of PT Session Question Answer Date of Assessment Author Next PT Re-Assessment Date 23737 01/16/2025 11: 29 AM Luis Astorga PT Initials 01/16/2025 11:29 AM Luis Astorga Date of PT Session [id number] 01/16/2025 11:29 AM ELIZABET Marlene Luis Elizalde * Pneumococcal Vaccine Screen - Year Round Question Answer Date of Assessment Author Have you ever had a pneumoni a vaccination? No 01/02/2025 3:56 PM Jolene Vasquez RN Patient Meets Criteria No 01/02/2025 3:56 PM Jolene Vasquez RN * Influenza Vaccine Screen - November Through June Question Answer Date of Assessment Author Have you had an influenza vaccine this season? No 01/02/2025 3:56 PM Jolene Vasquez RN Influenza Vaccine Indications Alcoholism, cirrhosis, or chronic liver disease 01/02/2025 3:56 PM Jolene Vasquez RN * Calculated C-SSRS Risk Score (Lifetime/Recent) Answer Date of Assessment Author No Risk Indicated 01/16/2025 12:00 PM Armida Parish RN * AUDIT-C Score Answer Date of Assessment Author 0 01/02/2025 12:41 PM Clarissa Kumar RN * [place] Coma Scale Question Answer Date of Assessment Author Best Eye Response Spontaneous 01/16/2025 12:00 PM Armida Parish RN Best Verbal Response Oriented 01/16/2025 12:00 PM Armida Parish RN Best Motor Response Follows commands 01/16/2025 12:00 PM Armida Parish RN [place] Coma Scale Score 15 01/16/2025 12:00 PM Armida Parish RN * Physical Activity Question Answer Date of Assessment Author On average, how many days pe r week do you engage in moderate to strenuous exercise (like a brisk walk)? 2 days 01/02/2025 12:41 PM Mariela Kumar RN On average, how many minutes do you engage in exercise at this level? 30 min 01/02/2025 12:41 PM Mariela Cosby RN * Alcohol Use Question Answer Date of Assessment Author Q1: [...] 01/02/2025 12:41 PM Mariela Kumar RN * SBIRT CAGE Screen Question Answer Date of Assessment Author Have you ever felt you shoul d CUT down on your drinking? 1 01/02/2025 3:56 PM Job Vasquez RN Have you been ANNOYED by peo ple criticizing your drinking? 1 01/02/2025 3:56 PM Akilah Vasquez RN Have you felt GUILTY about y our drinking? 1 01/02/2025 3:56 PM Jolene Vasquez RN Have you had a drink first t edgardo in the morning ([employer]) to steady your nerves or to get rid of a hangover? 1 01/02/2025 3:56 PM Jolene Vasquez RN CAGE Questionnaire Score 4 01/02/2025 3:56 PM Jolene Vasquez RN Alcohol Screen ASN 01/02/2025 3:56 PM Jolene Yi RN * Weight in (lb) to have BMI = 25 Answer Date of Assessment Author 194.4 01/02/2025 7:48 PM Allison Mix RN * BMI (Calculated) Answer Date of Assessment Author 27.6 01/16/2025 6:10 AM Elver Brandt CNA * Weight Change Since Preop Answer Date of Assessment Author 97.4 01/16/2025 6:10 AM Elver Brandt CNA * Initial Excess Weight Answer Date of Assessment Author -86.23 01/02/2025 7:48 PM Allison Mix RN * IBW in kg (Bariatric) Answer Date of Assessment Author 86.23 01/02/2025 7:48 PM Allison Mix RN * IBW in lb (Bariatric) Answer Date of Assessment Author 190.1 01/02/2025 7:48 PM Allison Mix RN * Weight Change Since Last Visit Answer Date of Assessment Author 1.6 01/16/2025 6:10 AM EST Elver Medel K, [facility] * Difference in Weight Since Last Visit Answer Date of Assessment Author 1.6 01/16/2025 6:10 AM EST Fatmata Medelasty K, [facility] * Pain Type Answer Date of Assessment Author Acute pain 01/15/2025 6:33 AM EST Mirtha Miranda RN * Temp (in Celsius) for [employer] [place] IV Answer Date of Assessment Author 36.6 01/16/2025 12:02 PM EST Marlene Kimbrough CNA * Pain Assessment Question Answer Date of Assessment Author Pain Orientation Mid 01/14/2025 6:27 AM EST Mirtha Saucedo RN Pain Descriptors Aching;Discomfort 01/14/2025 6:27 AM Mirtha Bright RN Pain Onset Ongoing 01/14/2025 6:27 AM EST Mirtha Luong RN Pain Frequency Constant/continuous 01/14/2025 6:27 AM Mirtha Bright RN Patient's Stated Pain Goal No pain 01/15/2025 4:00 AM Mirtha Bright RN Effect of Pain on Daily Activities adls 01/11/2025 8:22 AM EST Rosibel Delvalle Patient is asleep Yes, assume pain is decreased 01/10/2025 11:26 PM EST Marvin Bartlett RN Clinical Progression Not changed 01/15/2025 8:25 AM Marshall Pineda Pain Score 0 01/16/2025 8:00 AM Armida Parish RN Unable to Self-Report Pain Reason Patient chemically sedated 01/03/2025 4:00 PM EST Elyssa Augustin Pain Assessment 0-10 (Adult DVPRS/Pe ds 0-10) 01/16/2025 8:00 AM Armida Parish RN * Reflexes Question Answer Date of Assessment Author Cough Reflex Present 01/16/2025 12:00 PM Armida Hernandez RN Gag Present 01/16/2025 12:00 PM Armida Hernandez RN * Time-Out Question Answer Date of Assessment Author Pre-Meds Ordered/Given Not applicable 2025 5:00 AM Daylin Jones RN Name of Provider Performing Procedure IretimnRN 2025 5:00 AM Daylin Jones R N Correct Patient Yes 2025 5:00 AM Daylin Courtney RN Correct Site Yes 2025 5:00 AM Daylin Tolbert RN Site Marked Not applicable 2025 5:00 AM Daylin Cotto RN Correct Side Not applicable 2025 5:00 AM Daylin Cotto RN Correct Patient Position Yes 2025 5:00 AM Daylin Jones RN What Procedure? Central/PICC line removal 2025 5:00 AM Daylin Jones RN Correct Procedure Yes 2025 5:00 AM Daylin Jones RN Antibiotics Ordered/Given Not applicable 2025 5:00 AM Daylin Jones RN Consents Verified? No 2025 5:00 AM Daylin Jones RN Rad Studies Available? No 2025 5:00 AM Daylin Jones RN Lab Results Available? No 2025 5:00 AM Daylin Jones RN Safety Precautions Reviewed? Yes 2025 5:00 AM Daylin Jones RN * Tremors Question Answer Date of Assessment Author Tremor Location Hands 01/16/2025 12:00 PM Armida Pinon RN Tremor Severity Fine 01/16/2025 12:00 PM Armida Pinon RN Tremor Duration with movement 2025 8:00 PM Andreina Berumen RN * Nutrition Question Answer Date of Assessment Author Diet Supplements Boost Glucose Control 01/14/2025 8:00 AM Bree Patton RN Diet Type Regular;Low potassium;Other (Comment) 01/16/2025 12:00 PM Armida Parish RN Feeding Able to feed self 01/16/2025 12:00 PM EST Armida Oscar RN Appetite Fair 01/16/2025 12:00 PM EST Armida Mora RN * 4-Eyes Skin Assessment Question Answer Date of Assessment Author 4 Eyes Skin Assessment Completed Yes 01/16/20 8:00 PM Allison Mix RN Manual Dual Sign Off 2nd DEMETRIA Hayes RN 01/15/2025 8: 00 PM Allison Mix RN * Adult Low Range Vt 6mL/kg Answer Date of Assessment Author 493.44 01/02/2025 7:48 PM Allison Mix RN * Adult Moderate Range Vt 8mL/kg Answer Date of Assessment Author 657.92 01/02/2025 7:48 PM Allison Mix RN * Adult High Range Vt 10mL/kg Answer Date of Assessment Author 822.4 01/02/2025 7:48 PM Allison Mix RN * Vent Information Question Answer Date of Assessment Author Vent ID [id number] 01/03/2025 3:01 PM Blaine James Invasive Vent Status (ETT, Trach Only) Discontinued 01/03/2025 5:19 PM Linden Bowen Patient Category Range Adult 01/03/2025 3:01 PM Blaine Sinha $ Vent Charge - Initial Yes 01/03/2025 3:01 P M Blaine Sinha Invasive Ventilator Initiated (ETT/Trach Only) Yes 01/03/2025 3:01 PM Stephon Sinha Invasive Ventilator Discontinued (ETT/Trach Only) Yes 01/03/2025 5:19 PM Linden Bowen O2 Delivery Method Nasal cannula 01/05/2025 4:00 PM Leo Coats RN Vent Device Type Servo U 01/03/2025 3:01 PM Blaine Muñoz * Respiratory Interventions Question Answer Date of Assessment Author Respiratory Interventions Cough and deep breathing 01/16/2025 12:00 PM EST Armida Oscar, DEMETRIA * Cough and Deep Breathe Question Answer Date of Assessment Author Cough And Deep Breathing done independently per patient 01/16/2025 12:00 PM Armida Parish, DEMETRIA * Incentive Spirometry Question Answer Date of Assessment Author Patient Tolerance (IS) fair 8:00 PM Shaka Gillespie RN Administration (IS) previous patient education reinforced 01/07/2025 4:00 PM Fariha Pitts RN Level Incentive Spirometer (mL) 1500 01/04/2025 8:00 PM Shaka Gillespie RN Incentive Spirometer Predicted Level (mL) 500 01/04/2025 8:00 PM Shaka Gillespie RN Number of Repetitions (IS) 3 01/04/2025 8:00 PM Shaka Gillespie RN * Patient Belongings at Bedside Question Answer Date of Assessment Author Clothing Pants;Shirt;Footwear ;Socks;Underpants 01/02/2025 3:56 PM Jolene Vasquez RN Belongings at Bedside None 01/02/2025 3:56 PM Jolene Vasquez RN * Patient Belongings Sent to Safe/Security Question Answer Date of Assessment Author Belongings Sent to Safe/Security None 01/03/20 3:56 PM Jolene Vasquez RN * Genitourinary Additional Assessments Question Answer Date of Assessment Author Genitourinary Additional Assessments No 06/2024 12:00 PM Armida Parish RN * Integumentary Question Answer Date of Assessment Author Skin Color Appropriate for ethnicity 01/16/2025 12:00 PM Armida Parish RN Skin Condition/Temp Warm;Dry 01/16/2025 1 2:00 PM Armida Parish RN Skin Integrity Bruising;Other (Comment) 01/16/2025 12:00 PM Armida Parish RN Skin Turgor Non-tenting 01/16/2025 12:00 PM Armida Parish RN Skin Tone Light 01/16/2025 12:00 PM Armida Parish RN Bruising Characteristics Scattered 025 12:00 PM Armida Parish RN Integumentary (WDL) X 01/16/2025 1 2:00 PM Armida Parish RN * Patient Belongings Sent Home Question Answer Date of Assessment Author Belongings Sent Home None 01/16/2025 3:44 PM Armida Quiñones RN * Confusion Assessment Method (CAM) Question Answer Date of Assessment Author Acute Onset and Fluctuating Course (1A) No 01/16/2025 12:00 PM Armida Parish RN Acute Onset and Fluctuating Course (1B) No 01/16/2025 12:00 PM Armida Parish RN Inattention (2) No 01/16/2025 12:00 PM Armida Parish RN Disorganized Thinking (3) No 2024 12:00 PM Armida Parish RN Rate Patient's Level of Consciousness (4) Alert (Normal), No 01/16/2025 12:00 PM Armida Parish RN Delirium Present No 01/16/2025 12:0 0 PM Armida Parish RN * Confusion Assessment Method-ICU (CAM-ICU/PCAM-ICU) Question Answer Date of Assessment Author Feature 1: Acute Onset or Fl uctuating Course Negative 01/13/2025 12:51 PM Armida Holcomb * Feature 3: Altered Level of Consciousness Answer Date of Assessment Author Negative 01/16/2025 12:00 PM Eulogio Parish RN * Overall CAM-ICU/PCAM-ICU Answer Date of Assessment Author Negative 01/13/2025 12:51 PM Armida Holcomb * Critical-Care Pain Observation Tool Question Answer Date of Assessment Author Facial Expression 0 01/03/2025 4:00 PM EST Blade Augustinin Body Movements 0 01/03/2025 4:[address], Elyssa Complicance with the Ventila tor (Intubated Patients) 0 01/03/2025 4:00 PM EST Blade Augustinin Muscle Tension 0 01/03/2025 4:[address], Elyssa Critical-Care Pain Observation Score 0 12/14 4:00 PM EST Blade Augustinin * Sedation Scales Question Answer Date of Assessment Author Anat Scale (RS): Score 2 01/16/2025 12:00 PM Armida Parish R N Sedation Scale Used [place] Agitation Sedation Scale 01/16/2025 12:00 PM Armida Parish RN RASS 0 01/16/2025 12:00 PM Armida Hernandez RN [place] Opioid-Induced Sedation Scale (POSS) 1 01/16/2025 12:00 PM Armida Parish RN * Urine Output/Assessment Question Answer Date of Assessment Author Urine 100 01/15/2025 6:33 AM GISELE Mirtha LuongDEMETRIA Urine Color Unable to assess 01/16/2025 5:15 AM Allison Mckeon RN Urine Appearance Unable to assess 01/16/2025 5:15 AM Allison Hearn RN Urine Odor Unable to assess 01/16/2025 5:15 AM Allison Mckeon RN Unmeasured Urine Occurrence 1 01/16/2025 5:15 AM Allison Mix RN Urine Amount Unable to assess 01/16/2025 5:15 AM Allison Mckeon RN * Stool Output/Assessment Question Answer Date of Assessment Author Unmeasured Stool Occurrence (hourly total) 1 01/13/2025 6:00 AM Candie Ireland RN Stool Color Brown 01/13/2025 6:00 AM Andreina Aguillon RN Stool Amount Small 01/13/2025 6:00 AM Andreina Aguillon RN Stool Appearance Soft 01/13/2025 6:00 AM Andreina Berumen RN Bowel Incontinence No 01/16/2025 12:00 PM Armida Flynn RN [place] Stool Assessment [place] 01/13/2025 6:00 AM Andreina Ireland RN * Fall Risk Calculated Score Answer Date of Assessment Author Ricardo Olsen 01/16/2025 12:00 PM Eulogio Parish RN * Patient Specific Goals Question Answer Date of Assessment Author Patient/Family-Specific Goals (Include Timeframe) Patient will remain free from harm this shift 01/16/2025 8:00 AM Armida Parish RN Individualized Care Needs Safety 01/16/2025 8:00 AM Armida Parish RN Anxieties, Fears or Concerns None 01/16/2025 8:00 AM Armida Parish RN * Able to Complete Psychiatric Screening Question Answer Date of Assessment Author Were you able to complete al l the behavioral health screenings? Yes 01/02/2025 3:56 PM Jolene Vasquez RN * Patient Strengths/Barriers Question Answer Date of Assessment Author Strengths (Must Choose Two) Stable housing;Support from family 01/02/2025 3:56 PM Jolene Vasquez RN * Drug Screening Question Answer Date of Assessment Author Have you used any substances (canabis, cocaine, heroin, hallucinogens, inhalants, etc.) in the past 12 months? No 01/02/2025 3:56 PM Jolene Vasquez RN Have you used any prescripti on drugs other than prescribed in the past 12 months? No 01/02/2025 3:56 PM Jolene Vasquez RN Is a toxicology screen needed? No 01/02/2025 3:56 PM Jolene Vasquez RN * Delirium Assessment Question Answer Date of Assessment Author Delirium Prevention & Management Yes 01/16/2025 12:00 PM Armida Parish RN Delirium Prevention & Management: Early Mobility Ambulate to extent of patient's ability;Up to chair for meals;Out of room if possible;Educate patient and family about the benfits of early mobility in the hospital 01/16/2025 12:00 PM Armida Parish RN Delirium Prevention & Management: Cognitive Engagement Familiar objects from home provided;Familiar social contact provided;Reorienting communication;Emotional support provided;Optimize pain and other medication management;Environmenta l consistency promoted;Delirium prevention education provided to patient and family 01/16/2025 12:00 PM Armida Parish RN Delirium Prevention & Management: Optimize Sleep/Wake Cycles Calming techniques provided;Natural light during the day 01/16/2025 12:00 PM Armida Parish RN Delirium Scale Used Confusion Assessment Method 01/16/2025 12:00 PM Armida Parish RN * Unplanned Readmission Scores Question Answer Date of Assessment Author Unplanned Readmission Score 38.09 01/16/2025 4: 00 PM Brenden Hurtado * F = Family/Partner in Care Engagement and Empowerment Question Answer Date of Assessment Author How did you engage the family/partner in care? Invited to help deliver patient care 01/06/2025 8:10 PM Isabel Guallpa RN How did the family/partner in care participate? Assisted in plan of care 01/06/2025 8:10 PM Isabel Guallpa RN * Malnutrition Screening Tool (MST) Question Answer Date of Assessment Author Have you recently lost weigh t without trying? 0 01/02/2025 3:56 PM Jolene Vasquez RN Have you been eating poorly because of a decreased appetite? 0 01/02/2025 3:56 PM Jolene Mueller pe, RN * Weight Loss Score Answer Date of Assessment Author 0 01/02/2025 3:56 PM Bri Vasquez RN * Malnutrition Score Answer Date of Assessment Author 0 01/02/2025 3:56 PM Bri Vasquez RN * [place] Coma Scale Numeric Answer Date of Assessment Author 15 01/16/2025 12:00 PM EST Eulogio Oscar RN * Vent Settings (Invasive or Non Invasive) Question Answer Date of Assessment Author Resp Rate (Set) 16 01/03/2025 3:01 PM EST Blaine Gloden Resp Rate Observed 16 01/03/2025 3:01 PM EST Blaine Alexis Vt (Set, mL) 500 01/03/2025 3:01 PM Blaine James Vt Exh (ml) 537 01/03/2025 3:01 PM Blaine James PAP Observed (cm H2O) 18 01/03/2025 3:01 PM Blaine Sinha Minute Ventilation Set (L/min) 8 01/03/2025 3:01 PM Blaine Sinha PEEP/CPAP Set 5 01/03/2025 3:01 PM EST Blaine Pang MAP (cm H2O) 9 01/03/2025 3:01 PM Blaine James Insp Time (sec) 0.9 01/03/2025 3:01 PM EST sseBlaine longoria Insp Rise Time (%) 15 01/03/2025 3:01 PM Blaine Sinha I:E Ratio 1:3.13 01/03/2025 3:01 PM Blaine James Minute Ventilation Total 9.2 01/03/2025 3:01 PM Blaine Sinha Heater Water Checked 01/03/2025 3:01 PM Blaine James Circuit Compliance On/Off On 01/03/2025 3:01 PM Merritt Sinhaemy Trigger Sensitivity Flow (L/min) 1.01 01/04/20 25 3:01 PM EST ReubenBlaine lainez Humidification Heat 01/03/2025 3:01 PM EST Blaine Saxena Heater Temperature 98.6 01/03/2025 3:01 PM EST Reuben Blaine * Communication Support Strategies Answer Date of Assessment Author active listening utilized 2025 12:46 AM Daylin Gil RN * Elevate heels task - custom formula Answer Date of Assessment Author 1 01/16/2025 12:00 PM EST Eulogio Oscar RN * Vitals Timer Question Answer Date of Assessment Author Restart Vitals Timer Yes 01/16/2025 12:02 PM EST Shonda Kimbrough CNA * Vitals Question Answer Date of Assessment Author Cardiac Rhythm NSR 01/13/2025 4:30 PM EST Manjula Stanley RN * Respiratory Assessment Question Answer Date of Assessment Author Respiratory (WDL) WDL 2025 1:12 PM EST Rodney Vázquez RN * Integumentary Question Answer Date of Assessment Author Integumentary (WD) WDL 2025 1:12 PM Rodney Win RN * Modified Mickey Question Answer Date of Assessment Author Activity 2 01/13/2025 4:30 PM EST Nirmala Stanley RN Respiration 2 01/13/2025 4:30 PM EST Nirmala Stanley RN Hemodynamic Stability 2 01/13/2025 4:30 PM EST Manjula Stanley RN Consciousness 2 01/13/2025 4:30 PM EST Manjula Stanley RN Oxygen Saturation 2 01/13/2025 4:30 PM EST Manjula Stanley RN Modified Mickey Score 14 01/13/2025 4:30 PM EST Manjula Stanley RN Pain 2 01/13/2025 4:30 PM EST Nirmala Stanley RN Emetic Symptoms 2 01/13/2025 4:30 PM EST Manjula Stanley RN * Hourly Rounding Question Answer Date of Assessment Author Call Light Call light present a nd within reach 01/07/2025 8:00 PM EST Zachery Villarreal RN Rest/ Sleep Awake 01/07/2025 8:00 PM Zachery Conn, RN * Standardized Assessments Question Answer Date of Assessment Author Standardized Assessments [facility] 6-Clicks Mobility Assessment 01/05/2025 9:40 AM Elyssa Figueroa * [facility] 6-Click Daily Activities Question Answer Date of Assessment Author Help from Other: Don/Doff Re gular Lower Body Clothings 2 01/08/2025 1:00 PM EST Topher, Nadira Help From Other: Bathing 2 01/08/2025 1:00 PM EST Topher, Nadira Help From Other: Toileting 2 01/08/2025 1:0 0 PM EST Topher, Nadira Help From Other: Don/Doff Up per Body Clothings 3 01/08/2025 1:00 PM EST Topher, Nadira Help From Other: Grooming 3 01/08/2025 1:00 PM EST Topher, Nadira Help From Other: Eating Meals 3 01/08/2025 1:00 PM EST Topher, Nadira [facility] [facility] - Daily Activities Score 15 1:00 PM EST Topher Nadira * Bailee Index Question Answer Date of Assessment Author Feeding 10 01/13/2025 12:51 PM EST Armida Levin Bathing 0 01/13/2025 12:51 PM EST ValArmida george Grooming 5 01/13/2025 12:51 PM EST Armida Levin Dressing 5 01/13/2025 12:51 PM EST Valaugie ezArmida Bowels 10 01/13/2025 12:51 PM EST ValArmida george Bladder 10 01/13/2025 12:51 PM EST Armida Levin Toilet Use 5 01/13/2025 12:51 PM Armida Solis Transfers (Bed to Chair and Back) 10 025 12:51 PM Armida Holcomb Mobility (on Level Surfaces) 10 01/13/2025 1 2:51 PM Armida Holcomb Stairs 5 01/13/2025 12:51 PM Armida Solis Total Score 70 01/13/2025 12:51 PM Armida Solis * Standardized Tests Question Answer Date of Assessment Author Standardized Tests Bailee Index 01/13/2025 12:51 PM Armida Navarro * Danyel/Dustin Scale Question Answer Date of Assessment Author Age (years) 2 01/06/2025 8:10 PM Isabel Mendes RN Hemodynamics 4 01/06/2025 8:10 PM Isabel Mendes RN Weight/Tissue Viability 3 01/06/2025 8:10 P M Isabel Guallpa RN Respiration 4 01/06/2025 8:10 PM Isabel Mendes RN Past Medical History 2 01/06/2025 8:10 PM Isabel Meier RN Oxygen Requirments 4 01/06/2025 8:10 PM Isabel Guallpa RN General Skin Condition 3 01/06/2025 8:10 PM Isabel Guallpa RN Nutrition 4 01/06/2025 8:10 PM Isabel Mendes RN Medical Condition 4 01/06/2025 8:10 PM Isabel Guallpa RN Incontinence 4 01/06/2025 8:10 PM Isabel Mendes RN Mobility 4 01/06/2025 8:10 PM Isabel Mendes RN Hygiene 3 01/06/2025 8:10 PM Isabel Mendes RN Deduction if patient has bee n in surgery or transported to CT, MRI, or HBOT during last 48 hours 0 01/06/2025 8:10 PM Isabel Guallpa RN Deduction if patient has required blood or clotting factors during last 24 hours 0 01/06/2025 8:10 PM Isabel Guallpa RN Deduction if patient has hypothermia of 35 C or under (core temp) 0 01/06/2025 8:10 PM Karan Guallpa RN Jackson/Cubbin Pressure Risk Score 42 01/06/2025 8:10 PM Isabel Guallpa RN * Elopement Risk Screen Question Answer Date of Assessment Author Does the patient exhibit any of the following behaviors? No 01/16/2025 12:00 PM Armida Parish RN Does the patient have a cour t ordered legal guardian? No 01/16/2025 12:00 PM Armida Parish, DEMETRIA * Manual Muscle Testing - LLE Question Answer Date of Assessment Author Manual Muscle Testing [facility] 01/05/2025 9:40 AM Elyssa Figueroa * Manual Muscle Testing - RUE Question Answer Date of Assessment Author Manual Muscle Testing - RUE [facility] 01/05/2025 9: 02 AM Armida Jean Baptiste * Manual Muscle Testing - LUE Question Answer Date of Assessment Author Manual Muscle Testing - LUE [facility] 01/05/2025 9: 02 AM Armida Jean Baptiste * Initial Dysphagia Checklist Question Answer Date of Assessment Author Unable to Remain Alert for Testing No 2024 6:[address] RN Eating a Modified Diet (Thic kened Liquids) Due to Pre-Existing Dysphagia No 01/04/2025 6:[address] RN Existing Enteral Tube Feedin g via Stomach No 01/04/2025 6:[address] RN Head-Of-Bed Restrictions <30 Degrees No 01/04/2025 6:[address] RN Tracheostomy Tube Present No 01/04/2025 6:[address] RN NPO (Nil Per Os) by Physicia n Order For Medical Reason No 01/04/2025 6:[address] RN * Brief Cognitive Screen Question Answer Date of Assessment Author What is your Name? Correct 01/04/2025 6:17 AM Eleazar Flowers RN Where are You Right Now? Correct 01/04/2025 6:[address] RN What Year is It? Correct 01/04/2025 6:17 AM Eleazar Lopes RN * Oral Mechanism Exam Question Answer Date of Assessment Author Lip Closure WNL 01/04/2025 6:17 AM Eleazar Tang RN Tongue Range of Motion WNL 01/04/2025 6:[address] RN Facial Symmetry During Smile/Pucker WNL 01/04/2025 6:[address] RN * Pass/Fail Criteria Question Answer Date of Assessment Author Pass/Fail Criteria Pass 01/04/2025 6:[address] RN * Participants in Care Question Answer Date of Assessment Author Family/Caregiver Spouse 01/16/2025 11:29 AM Luis Astorga Supervisor Photocomposition N/A 01/13/2025 11:06 AM Diego Kimball Family/Caregiver Present Y 01/16/2025 11:29 AM Luis Astorga * Dynamic Sitting Balance Question Answer Date of Assessment Author Level of Assistance Independent 01/16/2025 1 1:29 AM Luis Astorga Dynamic Sitting - Interventions scooting in bedside chair 01/13/2025 12:51 PM Armida Holcomb Dynamic Sitting-Balance Support Feet supported 01/13/2025 12:51 PM Armida Holcomb Dynamic Sitting-Balance Lateral weight shifts;Anterior/Posteri or weight shifts 01/13/2025 12:51 PM Armida Holcomb * Cognition Question Answer Date of Assessment Author Orientation Level Oriented X4 01/05/2025 9:02 AM Armida Jean Baptiste * Static Sitting Balance Question Answer Date of Assessment Author Static Sitting-Level of Assistance Independent 01/16/2025 11:29 AM Luis Astorga Static Sitting-Balance Support Feet supported;Right upper extremity support;Left upper extremity support 01/13/2025 12:51 PM Armida Holcomb * Static Standing Balance Question Answer Date of Assessment Author Static Standing-Level of Assistance Independent 01/16/2025 11:29 AM Luis Astorga Static Standing-Balance Support Right upper extremity support;Left upper extremity support 01/13/2025 12:51 PM Armida Holcomb * OT Assessment Question Answer Date of Assessment Author OT Assessment Results Impaired ADL performance;Impaired IADL performance;Decreased endurance/ventilation/g as exchange;Impaired functional mobility;Impaired fine motor control/coordination;De creased gross motor control/coordination;Im paired balance 01/05/2025 9:02 AM Armida Jean Baptiste Occupational Profile Review of medical/therapy records and extensive additional review of physical, cognitive, or psychosocial history 01/05/2025 9:02 AM Armida Jean Baptiste Clinical Decision Making High 025 9:02 AM Armiad Jean Baptiste Overall Eval complexity Complex 01/06/20 9:02 AM Armida Jean Baptiste Evaluation/Treatment Tolerance Patient limited by fatigue;Patient limited by pain 01/05/2025 9:02 AM Armida Jean Baptiste Rehab Potential Good, to achieve sta anabel therapy goals 01/05/2025 9:02 AM Armida Jean Baptiste Performance Deficits Activities of daily living (ADLs);Instrumental activities of daily living (IADLs);Work;Body functions;Body structures;Motor skills;Habits;Routines; Roles;Personal;Physical 01/05/2025 9:02 AM Armida Jean Baptiste * C-SSRS (Frequent Screener) Question Answer Date of Assessment Author Is patient awake, alert, and able/willing to answer questions appropriately? Yes 01/16/2025 12:00 PM Armida Parish R N 1. Wish to be (Past 1 Month) No 12:00 PM Armida Parish RN 2. Non-Specific Active Suici joceline Thoughts (Past 1 Month) No 01/16/2025 12:00 PM Armida Parish, DEMETRIA 6. Suicidal Behavior (Lifetime) No 12:00 PM Armida Parish RN * Deferred Question Answer Date of Assessment Author Unable to assess No 01/02/2025 3:56 PM Jolene Moreno RN * Deferred Question Answer Date of Assessment Author Unable to assess No 01/02/2025 3:56 PM Jolene Moreno RN * Deferred Question Answer Date of Assessment Author Unable to assess No 01/02/2025 3:56 PM Jolene Moreno RN * Deferred Question Answer Date of Assessment Author Unable to assess Yes 01/02/2025 3:56 PM Jolene Moreno RN * Discharge Planning Continued Question Answer Date of Assessment Author Transportation Home at Discharge Family/Friend will Provide 01/16/2025 1:09 PM Gabriela Aly RN * [facility] 6-Clicks Mobility Assessment Question Answer Date of Assessment Author Difficulty patient has turni ng over in bed (including adjusting bedclothes, sheets, and blankets)? 3 01/13/2025 11:06 AM Diego Kate Difficulty patient has sitti ng down on and standing up from a chair with arms (wheelchair, bedside commode, etc.)? 3 01/13/2025 11:06 AM Dann Oates Difficulty patient has movin g from lying on back to sitting on the side of the bed? 3 01/13/2025 11:06 AM Nazia Oates How much help does the patie nt need moving to and from a bed to a chair (including a wheelchair)? 3 01/13/2025 11:06 AM Diego Kimball How much help does the patie nt need to walk in hospital room? 3 01/13/2025 11:06 AM Diego Aguirre How much help does the patie nt need climbing 3-5 steps with a railing? 3 01/13/2025 11:06 AM Nazia Oates [facility] 6-Clicks Mobility Asse ssment Total 18 01/13/2025 11:06 AM Nazia Oates * Pre-op Phone Call Discharge Planning Question Answer Date of Assessment Author Patient expects to be discharged to: inpatient 2025 10:23 AM Imelda Calvo RN * PT Therapeutic Procedures Time Entry Question Answer Date of Assessment Author Gait Training Time Entry 19 01/13/2025 11:06 AM Diego Oates Neuromuscular Re-Education T nydia Entry 10 01/16/2025 11:29 AM Luis Astorga Therapeutic Activity Time Entry 14 11:29 AM Luis Astorga * OT Therapeutic Procedures Time Entry Question Answer Date of Assessment Author Therapeutic Exercise Time Entry 11 5 12:51 PM EST Armida Garsia * FIDELENT Question Answer Date of Assessment Author CLAUDIA (DAXA) X 01/16/2025 12:00 PM EST Armida Mora, RN R Eye Sclera yellow 01/16/2025 12:00 PM EST Armida Cueva ms RN L Eye Sclera yellow 01/16/2025 12:00 PM EST Armida Cueva ms, RN R Ear Intact 01/15/2025 8:00 PM EST Adrianuer , Vanda L Ear Intact 01/15/2025 8:00 PM EST Adrianuer , Vanda Nose Intact 01/16/2025 12:00 PM EST Armida Mora RN Throat Dry 01/04/2025 4:00 PM EST Tila Vazquez, RN Tongue [place];Moist 01/06/2025 4:00 AM EST Sarah Rivera RN Voice Hoarse 01/07/2025 4:[address] RN Mucous Membrane(s) [place];Moist;Intact 01/07/2025 4:00 P M EST Fariha Hill RN Teeth Missing teeth 01/16/2025 12:00 PM EST Armida Cueva ms, RN Head and Face Symmetrical 01/16/2025 12:00 PM EST Armida Cueva ms, RN Neck Trachea midline 01/15/2025 8:00 PM EST Adrian uerVanda Lips Intact 01/15/2025 8:00 PM EST Vanda Gabriel * Presentation Question Answer Date of Assessment Author Lines and Tubes Intravenous access 01/16/2025 11:29 AM Luis Astorga Pre-Session Sitting in chair;Betsy es intact 01/16/2025 11:29 AM Luis Astorga Post-Session Sitting in chair;RN notified;Lines intact 01/16/2025 11:29 AM Luis Astorga Pre-Session Comments RN agreeable to session. 01/17/20 11:29 AM Luis Astorga Post-Session Comments Patient positioned for comfort with all needs in reach. at bedside. 01/16/2025 11:29 AM Luis Astorga * Infection Management Answer Date of Assessment Author aseptic technique maintained 01/15/2025 8:35 PM Allison Mix RN * Supportive Measures Answer Date of Assessment Author active listening utilized 2025 12:46 AM Daylin Gil, DEMETRIA * Activity (Behavioral Health) Answer Date of Assessment Author activity encouraged 2025 12:46 AM Daylin Byrne RN * Pressure Reduction Techniques Answer Date of Assessment Author frequent weight shift encour aged;heels elevated off bed 01/15/2025 8:35 PM Allison Mix RN * Sleep Hygiene Promotion Answer Date of Assessment Author awakenings minimized 2025 12:46 AM EST Daylin Taylor RN * Pain Management Interventions Answer Date of Assessment Author medication (see MAR) 01/15/2025 6:33 AM EST Mirtha Story RN * Fluid/Electrolyte Management Answer Date of Assessment Author intravenous fluid replacement initiated 01/13/20 10:23 AM Imelda Calvo RN * Fever Reduction/Comfort Measures Answer Date of Assessment Author lightweight clothing;lightweight bedding 8:35 PM Allison Mix RN * Trust Relationship/Rapport Answer Date of Assessment Author care explained;questions ans wered;questions encouraged 2025 12:46 AM Daylin Jones RN * Pressure Reduction Devices Answer Date of Assessment Author positioning supports utilized 01/15/2025 8:35 PM Allison Mix RN * Elevated Risk Identified Answer Date of Assessment Author fluid and electrolyte imbalance 2025 10:23 AM Imelda Calvo RN * Spasticity Management Answer Date of Assessment Author positioned with supportive d evice;spastic muscles stretched;standing frame utilized;triggers managed;weight-bearing facilitated 01/10/2025 4:22 PM EST Rosibel Delvalle * Elevated Risk Identified Answer Date of Assessment Author procedure-related injury 2025 10:23 AM Imelda Calvo RN * Social Functional Ability Promotion Answer Date of Assessment Author autonomy promoted 01/04/2025 8:56 PM EST Shaka Cowart RN * Environment Familiarity/Consistency Answer Date of Assessment Author daily routine followed 01/10/2025 4:22 PM EST Rosibel Wise * Infection Prevention Answer Date of Assessment Author equipment surfaces disinfect ed;hand hygiene promoted;rest/sleep promoted;single patient room provided 01/14/2025 7:52 PM EST Bree Mcfarland RN * Outcome Evaluation Answer Date of Assessment Author pt verbalized understanding of current plan of care 01/14/2025 5:45 PM EST Bree Mcfarland, RN * Medication Review/Management Answer Date of Assessment Author medications reviewed 01/15/2025 8:37 PM Allison Cavanaugh RN * Self-Care Promotion Answer Date of Assessment Author independence encouraged;BADL personal objects within reach 01/15/2025 8:37 PM Allison Mix RN * Goal: Anesthesia/Sedation Recovery Question Answer Date of Assessment Author Outcome Anesthesia/Sedation Recovery met 2025 1:12 PM Rodney Bain RN * Discharge Needs Assessment Question Answer Date of Assessment Author Discharge Facility/Level of Care Needs 1-Home or Self Care 01/16/2025 1:09 PM Gabriela Aly RN Equipment Needed After Discharge walker, rolling 01/16/2025 1:09 PM Gabriela Aly RN Equipment Currently Used at Home none 01/16/2025 1:09 PM Gabriela Aly RN Current Outpatient/Agency/Support Group clinic(s) 01/16/2025 1:09 PM Gabriela Aly RN Anticipated Changes Related to Illness none 01/16/2025 1:09 PM Gabriela Aly RN Transportation Anticipated family or friend will provide 01/16/2025 1:09 PM Gabriela Aly RN Outpatient/Agency/Support Group Needs clinic(s) 01/16/2025 1:09 PM Gabriela Aly RN Transportation Concerns none 01/17/20 1:09 PM Gabriela Aly RN Current Discharge Risk chronically ill 1:09 PM Gabriela Aly RN Readmission Within the Last 30 Days no previous admission in last 30 days 01/16/2025 1:09 PM Gabriela Aly RN Patient/Family Anticipated Services at Transition outpatient care 01/16/2025 1:09 PM Gabriela Aly RN Patient/Family Anticipates Transition to home 01/16/2025 1:09 PM Gabriela Aly RN Does the patient need discharge transport arranged? No 01/16/2025 1:09 PM Gabriela Aly RN Has discharge transport been arranged? No 01/16/2025 1:09 PM Gabriela Aly RN Who is requesting discharge planning? Provider 01/16/2025 1:09 PM Gabriela Aly RN * Goal: Optimal Comfort and Wellbeing Question Answer Date of Assessment Author Outcome Optimal Comfort and Wellbeing met 2025 1:12 PM Rodney Bain RN Elevated Risk Identified pain 2025 10:23 AM Imelda Calvo RN * Goal: Minimized Risk/Safety Maintenance Question Answer Date of Assessment Author Outcome Minimized Risk and Safety met 025 1:12 PM Rodney Bain RN * Goal: Physiologic Homeostasis Question Answer Date of Assessment Author Outcome Physiologic Homeostasis met 1:12 PM Rodney Bain RN * Precautions Question Answer Date of Assessment Author Medical Precautions Post-Surgical precautions;Fall precautions 01/05/2025 9:02 AM Armida Jean Baptiste Post-Surgical Precautions Abdominal: no lifting >10# 01/05/2025 9:02 AM Armida Jean Baptiste * Date of OT Session Question Answer Date of Assessment Author OT Initials HV 01/13/2025 12:51 PM Armida Solis Date of OT Session [id number] 01/13/2025 12:51 PM Armida Villarreal * Oxygen Therapy Question Answer Date of Assessment Author O2 Flow Rate (L/min) 2 01/05/2025 9:40 AM Elyssa Herrera * HLM Question Answer Date of Assessment Author HLM Daily Mobility Score 8 01/16/2025 11 :29 AM Luis Astorga * Sensation Question Answer Date of Assessment Author Light Touch: Right Upper Extremity Intact 2024 9:02 AM Armida Jean Baptiste * Sensation Question Answer Date of Assessment Author Light Touch: Left Upper Extremity Intact 025 9:02 AM Armida Jean Baptiste * Sensation Question Answer Date of Assessment Author Light Touch: Right Lower Extremity Mild impairment 9:40 AM Eylssa Figueroa * Sensation Question Answer Date of Assessment Author Light Touch: Left Lower Extremity Mild impairment 12/14 9:40 AM Elyssa Figueroa * Bed Mobility Interventions Question Answer Date of Assessment Author Bed Mobility Interventions pt recieved a nd left sitting upright in bedside chair 01/13/2025 12:51 PM Armida Holcomb * Bed Mobility Exam: Scooting/Bridging Question Answer Date of Assessment Author Level of Weld Contact guard 2025 3:00 PM EST Short, Elyssa Physical/Nonphysical Assist Verbal Cues; Minimal cues;Set-up required 2025 3:00 PM EST Short, Elyssa Assistive Device Bed rails 2025 3:00 PM EST S hort, Elyssa * Bed Mobility Exam: Rolling/Turning Question Answer Date of Assessment Author Level of Weld Minimum assist (75 % patient effort) 2025 3:00 PM EST Short, Elyssa Physical/Nonphysical Assist Verbal Cues; Minimal cues 2025 3:00 PM EST Short, Elyssa Assistive Device Bed rails 2025 3:00 PM EST S hort, Elyssa * Bed Mobility Exam: Supine to Sit Question Answer Date of Assessment Author Level of Weld Stand-by assist 01/16/2025 1:27 PM EST Fide Luis Physical/Nonphysical Assist Verbal Cues 01/16/2025 1: 27 PM EST Fide Luis Assistive Device Bed rails 2025 3:00 PM EST S hort, Elyssa * Bed Mobility Exam: Sit to Supine Question Answer Date of Assessment Author Level of Weld Stand-by assist 01/16/2025 1:27 PM EST Fide Luis Physical/Nonphysical Assist Verbal Cues 01/16/2025 1: 27 PM EST Fide Luis * Transfer Exam: Sit to stand Question Answer Date of Assessment Author Level of Weld Independent 01/16/2025 11:29 AM EST Fide Luis Physical/Nonphysical Assist Verbal Cues;Nonverbal cues (demo/gestures);1 person + 1 person to manage equipment 01/13/2025 12:51 PM Armida Holcomb Assistive Device Walker, rolling 2025 3:00 PM ES T Short, Elyssa * Transfer Exam: Stand to Sit Question Answer Date of Assessment Author Level of Weld Independent 01/16/2025 11:29 AM EST [place] Physical/Nonphysical Assist Nonverbal cues (demo/gestures);Verbal Cues;1 person + 1 person to manage equipment 01/13/2025 12:51 PM Armida Holcomb Assistive Device Walker, rolling 2025 3:00 PM ES T Short, Elyssa * Transfer Exam: Bed to Chair/Chair to Bed Question Answer Date of Assessment Author Type of Transfer Sidesteps 01/05/2025 9:40 AM EST S [place] Elyssa Level of Weld Minimum assist (75 % patient's effort) 01/05/2025 9:40 AM EST Short, Elyssa Physical/Nonphysical Assist Nonverbal cu es (demo/gestures);Verbal Cues;Additional assist utilized for safety 01/05/2025 9:40 AM EST Short, Elyssa Assistive Device Hand held assist 01/05/2025 9:[address] Short, Elyssa * Toilet Transfer Question Answer Date of Assessment Author Assistive Device Walker, rolling;Grab bar 01/08/2025 1:00 PM Nadira Rojo Type of Transfer Ambulation;To toilet 01/08/2025 1:07 PM EST Micki Johnson Level of Weld Minimum assist (75 % patient's effort) 01/08/2025 1:00 PM Nadira Rojo Physical/Nonphysical Assist Verbal Cues;Nonverbal cues (demo/gestures);Brandon tional assist utilized for safety 01/08/2025 1:00 PM Nadira Rojo * Postural Appearance Question Answer Date of Assessment Author Posture Rounded shoulders;Forward head 01/13/2025 12:51 PM Armida Holcomb * UE Dressing Question Answer Date of Assessment Author UE Dressing Interventions gown management/adjustments, in both sitting AND standing 01/13/2025 12:51 PM Armida Holcomb UE Dressing Where Assessed Chair level 01/13 12:51 PM Armida Holcomb UEulogio Dressing Level of Assistance Modified independent 01/13/2025 12:51 PM Armida Holcomb * Lower Extremity Dressing Question Answer Date of Assessment Author LE Dressing Interventions pt completes s ock adjustment task from chair with cuing for adapted body mechanics and figure four technique with functional anterior reach toward distal LEs 01/13/2025 12:51 PM Armida Holcomb LE Dressing Where Assessed Chair level 01/13 12:51 PM Armida Holcomb Sock Level of Assistance Modified independent;Setup 01/13/2025 12:51 PM Armida Holcomb * Toileting Question Answer Date of Assessment Author Toileting Interventions pt requires CGA for ambulation using RW [...] routine to be completed at bathroom level 01/13/2025 12:51 PM Armida Holcomb Where Assessed Toilet 01/13/2025 12:51 PM Armida Holcomb Toileting Level of Assistance Setup;Contact guard 01/13/2025 12:51 PM Armida Holcomb * Cognition Question Answer Date of Assessment Author Deficit Awareness Fully aware of deficits 2024 12:51 PM Armida Holcomb Mood/Behavior Alert;Distractible;I mpul sive 01/13/2025 12:51 PM Armida Holcomb Overall Cognitive Status WFL 025 12:51 PM Armida Holcomb Arousal/Alertness Appropriate response s to stimuli 01/13/2025 12:51 PM Armida Holcomb Attention Span Appears intact 01/13/2025 12:51 PM Armida Holcomb Safety Judgment Good awareness of sa fety precautions 01/13/2025 12:51 PM Armida Holcomb Awareness of Errors Good awareness of er rors made 01/13/2025 12:51 PM Armida Holcomb Method of Communication Verbal 01/14/20 25 12:51 PM Armida Holcomb Single Step Commands Consistently 01/13/2025 12:51 PM Armida Holcomb Multi-Step Commands Consistently 01/13/2025 1 2:51 PM Armida Holcomb * General Question Answer Date of Assessment Author Patient/Family Goals Statement Patient would like to return home with family. 01/05/2025 9:40 AM Elyssa Figueroa * Plan Question Answer Date of Assessment Author Predicted Duration of Therapy 2 weeks 01/05/2025 9:40 AM EST Short Elyssa Discharge Recommendation Outpatient PT;H ome with assistance 01/16/2025 1:27 PM Luis Astorga Equipment Recommended Rolling walker 01/16/2025 1:27 P M Luis Astorga Planned PT Interventions Balance trainin g;Bed mobility training;Gait training;Transfer training;Neuromuscular re-education;Postural re-education;Strengthen ing;Functional Mobility;Caregiver training 01/05/2025 9:40 AM EST Short, Elyssa Therapy Frequency 3 - 5 times per week 01/05/2025 9:40 AM EST Short, Elyssa * Gait Training Question Answer Date of Assessment Author Device Rolling walker 2025 3:00 PM EST Blade Healyin Apparatus Chair follow 01/13/2025 11:06 AM Diego Oates Assistance Moderate verbal cues;Moderate tactile cues;Additional assist for line management 01/13/2025 11:06 AM Diego Oates Distance 25' with RW + 210' without AD + 120' without AD (seated rest break between final 2 bouts) 01/13/2025 11:06 AM Diego Oates Gait Analysis Patient demonstrates narrow base of support, decreased stride length, decreased heel strike, slow anastasiya and forward flexed posture on RW. During ambulation without RW, Pt with increased presentation of truncal sway, increased lateral veering from midline which increased with performance of head turns. During perfromance of stepping overa a 5 inch object pt with one time LOB during SLS requiring Vicente to recover. 01/13/2025 11:06 AM Diego Oates Gait Training Interventions PT sized RW appropriately to patient's height, PT provided consistent cueing for widening NELA. 01/13/2025 11:06 AM Diego Oates * PT Assessment Question Answer Date of Assessment Author Activity Limitations Inability to ambula te independently;Inability to transfer independently;Inability to ambulate household distances;Inability to ambulate community distances;Inability to complete ADLs independently 01/05/2025 9:40 AM EST Niraj Elyssa Participation Restrictions Self-care;Home management;Community leisure 01/05/2025 9:40 AM EST Niraj Elyssa History Profile 3 or more personal f actors and/or comorbidities 01/05/2025 9:40 AM EST Short, Elyssa Barriers to Discharge Comorbidities 01/05/2025 9:40 AM EST Short, Elyssa Impairments Decreased endurance, ventilation, and/or gas exchange;Impaired gait dynamics/performance;Impair ed balance;Impaired functional mobility/transfers;Impaired postural/trunk control;Pain;Impaired sensation/sensory processing 01/05/2025 9:40 AM EST Short, Elyssa Evaluation/Treatment Tolerance Patient limited by pain;Patient limited by fatigue 01/05/2025 9:40 AM EST Short, Elyssa Diagnosis Impaired functional mobility 01/05/2025 9:40 AM EST Short, Elyssa Clinical Presentation Unstable and unpre dictable characteristics 01/05/2025 9:40 AM EST Short, Elyssa Clinical Decision Making High complexity 025 9:40 AM EST Short, Elyssa Rehab Potential Good, to achieve sta anabel therapy goals 01/05/2025 9:40 AM EST Short, Elyssa Activity Tolerance Tolerates 10 - 20 mi n activity with multiple rests 01/05/2025 9:40 AM EST Short, Elyssa * Ambulation Question Answer Date of Assessment Author Distance 400ft 01/16/2025 11:29 AM EST Luis Elizalde Device Rolling walker 01/16/2025 11:29 AM EST Luis Lee Apparatus Chair follow 01/13/2025 12:51 PM EST Armida Levin Assistance Standby assist 01/16/2025 11:29 AM EST Luis Lee Ambulation Comments Slow speed and sligh tly unsteady but no LOB. Cues for safe direction of RWx. 01/16/2025 11:29 AM EST Luis Elizalde * HLM Score Question Answer Date of Assessment Author HLM Daily Mobility Goal 8 01/15/2025 8:0 0 PM EST Allison Rosenbaum, DEMETRIA * Plan of Care Reviewed With Answer Date of Assessment Author patient 01/16/2025 9:36 AM EST Nimisha Oscar ma, RN * Pressure Injury Prevention (PIP) Interventions Question Answer Date of Assessment Author Pressure Reducing Devices Pillow 01/16/2025 12:0 0 PM EST Armida Oscar, RN Preventative Foam Dressing Location Coccyx 01/07/2025 8:00 PM EST Zachery Villarreal RN Preventative Foam Dressing Intervention Applied 01/06/2025 8:00 AM EST Galileo Abdi RN Bed Type Acute Care Bed 01/16/2025 12:00 PM EST Armida Beckwith ams, RN * Vital Signs Question Answer Date of Assessment Author BP 137/86 01/16/2025 12:02 PM EST Lennox Pineda Flowsheet In Pulse 82 01/16/2025 12:02 PM EST Lennox Pineda Flowsheet In Heart Rate Source Monitor 01/16/2025 3:20 AM Allison Mix RN MAP (mmHg) 103 01/16/2025 12:02 PM EST Lennox Pineda Flowsheet In Patient Position Lying 01/16/2025 6:09 AM EST Allison Bernal RN * Oxygen Therapy Question Answer Date of Assessment Author SpO2 95 01/16/2025 12:02 PM Lennox Pham Flowsheet In FiO2 (%) 40 01/03/2025 5:00 PM Elyssa Varela ETCO2 (mmHg) 29 01/03/2025 5:00 PM Elyssa Varela Vent Mode PS/CPAP 01/03/2025 5:00 PM EST Elyssa Christiansen Pulse Oximetry Type Intermittent 01/16/2025 3:20 AM Allison Puckett RN Patient Activity During SpO2 Measurement At rest 01/16/2025 3:20 AM Allison Mix RN Oximetry Probe Site Location Left Digit 2025 10:15 AM EST Imelda Lucas RN * Height and Weight Question Answer Date of Assessment Author Height 74.016 01/02/2025 7:48 PM EST Allison Gavin RN * Pain 2 Question Answer Date of Assessment Author Pain Score 2 1 01/15/2025 8:25 AM EST Marshall Hopper * Neurological Question Answer Date of Assessment Author Neuro (WDL) X 01/07/2025 12:50 AM EST Isabel Shepherd RN Neuro Additional Assessments [place] Coma Scale 01/07/2025 12:50 AM EST Isabel Shepherd RN Reflexes Cough;Gag 01/04/2025 4:00 AM EST Eleazar Mac RN * Cardiac Question Answer Date of Assessment Author Ectopy Premature ventricula r contractions 01/06/2025 4:00 AM EST Sarah Montanez RN Ectopy Frequency Rare 01/05/2025 4:00 PM EST Leo Vinson RN * Plastic Mould Maker Question Answer Date of Assessment Author Telemetry Strip Reviewed Yes, I have reviewed and acknowledged. 01/06/2025 8:10 PM EST Isabel Shepherd RN * Pacemaker Question Answer Date of Assessment Author Pacemaker No 01/16/2025 12:00 PM EST Armida Mora RN * Gastrointestinal Question Answer Date of Assessment Author Most Recent BM Date [id number] 01/15/2025 8 :00 PM EST Allison Rosenbaum RN Passing Flatus Yes 01/16/2025 12:00 PM EST Armida Oscar RN Abdominal Tenderness Soft;Tenderness 01/16/2025 12:00 PM Armida Parish RN Bowel Sounds (All Quadrants) Present 01/16/2025 12:00 PM Armida Parish RN Anus/Rectum Evaluation and Tone Unable to assess 01/16/2025 4:22 AM EST Allison Rosenbaum RN Gastrointestinal (WDL) X 12:00 PM Armida Parish RN Abdomen Inspection Soft;Rounded;Surgic al scar 01/16/2025 12:00 PM Armida Parish RN GI Symptoms None 01/16/2025 12:00 PM Armida Parish RN Nausea Precipitating Factors Movement 01/04/2025 8:57 AM EST Tila Vazquez RN Relieved by Laxative 01/07/2025 8:00 AM EST Fariha Hill RN Gastrointestinal Additional Assessments No 01/16/2025 12:00 PM EST Armida Oscar RN * Peripheral Vascular Question Answer Date of Assessment Author Peripheral Vascular (WDL) X 01/16/2025 12:00 PM EST Armida Oscar RN Generalized Edema +1 01/16/2025 12: 00 PM Armida Parish RN Perineal Edema Non-pitting 2025 4:00 AM EST Daylin Taylor RN RUE Edema +1 01/13/2025 3:35 PM EST Rodney Andino RN RLE Edema +2 01/16/2025 12:00 PM EST Armida Oscar RN LUE Edema +1 01/13/2025 3:35 PM EST Rodney Andino RN LLE Edema +2 01/16/2025 12:00 PM EST Armida Oscar RN Capillary Refill Less than/equal to 2 seconds (All extremities) 01/16/2025 12:00 PM EST Armida Oscar, RN Pulses R radial;L radial;R pedal;L pedal 01/16/2025 12:00 PM EST Armida Oscar RN Cyanosis None 01/16/2025 12:00 PM EST Armida Oscar RN Edema Generalized;Right lower extremity;Left lower extremity 01/16/2025 12:00 PM EST Armida Oscar RN * RUEulogio Neurovascular Assessment Question Answer Date of Assessment Author RUEulogio Capillary Refill Less than/equal to 2 seconds 01/16/2025 12:00 PM Armida Parish RN R Radial Pulse +2 01/16/2025 12:00 PM EST Armida Beckwith ams, RN * LUE Neurovascular Assessment Question Answer Date of Assessment Author LUE Capillary Refill Less than/equal to 2 seconds 01/16/2025 12:00 PM EST Armida Oscar RN L Radial Pulse +2 01/16/2025 12:00 PM EST Armida Beckwith ams, RN * RLE Neurovascular Assessment Question Answer Date of Assessment Author RLE Capillary Refill Less than/equal to 2 seconds 01/16/2025 12:00 PM EST Armida Oscar RN R Posterior Tibial Pulse +1 01/13/2025 3:35 PM EST Rodney Watts RN R Pedal Pulse +1 01/16/2025 12:00 PM EST Armida Cueva ms, RN * LLE Neurovascular Assessment Question Answer Date of Assessment Author LLE Capillary Refill Less than/equal to 2 seconds 01/16/2025 12:00 PM EST Armida Oscar RN L Posterior Tibial Pulse +1 01/13/2025 3:35 PM EST Rodney Watts RN L Pedal Pulse +1 01/16/2025 12:00 PM EST Armida Cueva ms, RN * Musculoskeletal Question Answer Date of Assessment Author RUE Full movement 01/16/2025 12:00 PM Armida Parish RN RLE Full movement;Swelling 01/16/2025 12:00 PM Armida Parish RN LUE Full movement 01/16/2025 12:00 PM Armida Parish RN LLE Full movement;Swelling 01/16/2025 12:00 PM Armida Parish RN Musculoskeletal (WDL) X 01/16/2025 12:00 PM Armida Parish RN Musculoskeletal Additional Assessments No 01/16/2025 12:00 PM Armida Parish RN * Urine Assessment Question Answer Date of Assessment Author Urinary Incontinence No 01/16/2025 12:00 PM Armida Parish RN * Genitalia Question Answer Date of Assessment Author Male Genitalia Intact 01/16/2025 12:00 PM Armida Farrell ams, RN * Psychosocial Question Answer Date of Assessment Author Psychological state Calm;Cooperative 01/16/2025 12:00 PM Armida Parish RN Family Behaviors Calm;Cooperative 01/16/2025 12:00 PM Armida Parish RN Needs Expressed Denies 01/16/2025 12:00 PM Armida Pinon RN Psychosocial (WDL) WDL 01/16/2025 12:00 PM Armida Flynn RN Psychosocial Additional Assessments No 01/16/2025 12:00 PM Armida Parish R N Ability to Express Feelings Able to express 01/16/2025 12:00 PM Armida Parish RN Ability to Express Needs Able to express 01/16/2025 12 :00 PM Armida Parish RN Ability to Express Thoughts Able to express 01/16/2025 12:00 PM Armida Parish RN Ability to Understand Others Understands 01/16/2025 12:00 PM Armida Parish R N * Silva Fall Risk Question Answer Date of Assessment Author History of Falling, Immediat e or Within 3 Months 0 01/16/2025 12:00 PM Armida Parish R N Secondary Diagnosis 15 01/16/2025 12:00 PM Armida Quiñones RN Ambulatory Aid 0 01/16/2025 12:00 PM EST Armida Beckwith ams, RN Intravenous Therapy/Heparin Lock 20 01/17/20 25 12:00 PM Armida Parish RN Gait/Transferring 0 01/16/2025 12:00 PM Armida Parish RN Mental Status 0 01/16/2025 12:00 PM EST Armida Cueva ms, RN Morse Fall Risk Score 35 01/16/2025 12:00 PM EST Armida Oscar RN * Rosendo Scale Question Answer Date of Assessment Author Sensory Perceptions 4 01/16/2025 12:00 PM E Armida Schneider RN Moisture 4 01/16/2025 12:00 PM EST Armida Mora RN Activity 3 01/16/2025 12:00 PM EST Armida Mora RN Mobility 3 01/16/2025 12:00 PM EST Armida Mora RN Nutrition 3 01/16/2025 12:00 PM EST Armida Mora RN Friction and Shear 3 01/16/2025 12:00 PM Armida Flynn RN Rosendo Scale Score 20 01/16/2025 12:00 PM Armida Flynn RN * BSA (Calculated - sq m) Answer Date of Assessment Author 2.26 01/16/2025 6:10 AM EST Elver Medel [facility] * BMI (Calculated) Answer Date of Assessment Author 27.56 01/16/2025 6:10 AM EST Elver Medel K, [facility] * Pain Location Answer Date of Assessment Author Abdomen 01/15/2025 6:33 AM EST Mirtha Miranda RN * Cardiac Question Answer Date of Assessment Author Unloader On No 01/16/2025 12:00 PM Armida Parish RN Telemetry Audible No 01/09/2025 4:00 AM Daylin Jones RN Telemetry Alarms Set No 01/09/2025 4:00 AM E Daylin Bañuelos RN Telemetry Box Number [id number] 01/08/2025 8:00 AM E Rosibel Wen Cardiac (WDL) WDL 01/16/2025 12:00 PM EST Armida Cueva ms, RN Pacemaker No 01/16/2025 12:00 PM Armida Hernandez RN Cardiac Regularity Regular 01/16/2025 12:00 PM ELIZABET T Armida Oscar RN Heart Sounds S1, S2 01/16/2025 12:00 PM Armida Hernandez RN Telemetry/Plastic Mould Maker No 01/16/2025 12:0 0 PM Armida Parish RN Jugular Venous Distention (JVD) No 12:00 PM Armida Parish RN Cardiac Symptoms None 01/16/2025 12:00 PM Armida Parish RN * Respiratory Question Answer Date of Assessment Author Artificial airway present Yes 01/04/2025 4:[address] RN Bilateral Breath Sounds Clear;Diminished 12:00 PM Armida Parish RN Respiratory Pattern Regular 01/16/2025 1 2:00 PM Armida Parish RN Chest Assessment Symmetrical;Chest expansion symmetrical 01/16/2025 12:00 PM Armida Parish RN Cough Cries with cough 01/05/2025 4:00 AM Shaka Boothe RN Respiratory (WDL) X 01/16/2025 12: 00 PM Armida Parish RN Respiratory Additional Assessments No 01/16/2025 12:00 PM Armida Parish RN Respiratory Effort Unlabored 01/16/2025 12 :00 PM Armida Parish RN Respiratory Depth/Rhythm Regular 01/16/2025 12:00 PM Armida Parish RN * RLE ROM Assessment Question Answer Date of Assessment Author RLE Assessment WFL 01/05/2025 9:40 AM Elyssa Haskins * LLE ROM Assessment Question Answer Date of Assessment Author LLE Assessment WF 01/05/2025 9:40 AM GISELE cisneros Elyssa * Vitals Question Answer Date of Assessment Author Temp 97.9 01/16/2025 12:02 PM Shonda Ng CNA Temp src Oral 01/16/2025 12:02 PM Shonda Ng CNA Resp 18 01/16/2025 12:02 PM Shonda Ng CNA Weight 3435.65 01/16/2025 6:10 AM EST Thorn ton, Dynasty K, [facility] BP Location Left arm 01/16/2025 12:02 PM EST Ro nShonda S, [facility] BP Method Automatic 01/16/2025 12:02 PM EST Ro nShonda S, [facility] Oxygen Therapy None 01/16/2025 12:02 PM EST Gr eenShonda S, [facility] * Point of Care Tests Question Answer Date of Assessment Author Provider Role Resident 01/10/2025 8:15 AM Rosibel Ledbetter Provider Name Jayjay Quesada MD 01/10/2025 8:15 AM Rosibel Longo Method of Communication Face to face 01/10/2025 8:15 A M Rosibel Guillen Reason for Communication Review case;Evaluate;Patient request 01/10/2025 8:15 AM Rosibel Guillen * Vision - Basic Assessment Question Answer Date of Assessment Author Patient Visual Report no acute visual changes 01/05/2025 9:02 AM Armida Jean Baptiste Current Vision Intact 01/05/2025 9:02 AM Armida Rosales * Advance Directives (For Healthcare) Question Answer Date of Assessment Author Advance Directive Patient would not li ke information 01/02/2025 3:56 PM Jolene Vasquez RN Pre-existing DNR/DNI Order No 01/02/2025 3:56 PM Jolene Vasquez RN Information Provided on Healthcare Directives No 01/02/2025 3:56 PM Saul Vasquez RN Patient Requests Assistance No 01/02/2025 3:56 PM Jolene Vasquez RN Have you reviewed your Advance Directive and is it valid for this stay? No 01/02/2025 3:56 PM Jolene Vasquez RN * Nutrition Screen Question Answer Date of Assessment Author Difficulty Chewing or Swallowing No 01/03/20 3:56 PM Jolene Vasquez RN Burn, Pressure Injury, or Non-Healing Wound No 01/02/2025 3:56 PM Jolene Vasquez RN Home Tube Feeding or Total Parenteral Nutrition (TPN) No 01/02/2025 3:56 PM Akilah Vasquez RN Food allergy, Restorationist, or Cultural nutrition needs No 01/02/2025 3:56 PM EST Jung Florian RN * Trauma/Abuse Assessment Question Answer Date of Assessment Author Physical Abuse Denies 01/02/2025 3:56 PM EST Jolene Cardenas RN Verbal Abuse Denies 01/02/2025 3:56 PM EST Jolene Gray RN * Values/Beliefs Question Answer Date of Assessment Author Cultural Requests During Hospitalization NA 01/02/2025 3:56 PM Jolene Vasquez RN Spiritual Requests During Hospitalization agrees to blood transfusion 2025 10:22 AM EST Imelda Lucas RN Unable to assess No 01/02/2025 3:56 PM Jolene Vasquez RN * Art Line (1) Question Answer Date of Assessment Author Arterial Line MAP (mmHg) 124 01/05/2025 9:00 AM Leo Brown RN Arterial Line BP 183/90 01/05/2025 9:00 AM EST Leo Vinson RN PPV 3 01/03/2025 4:00 PM EST Elyssa Christiansen * Art Line (2) Question Answer Date of Assessment Author Arterial Line BP 2 162/82 01/06/2025 10:00 AM Galileo Hunter RN Arterial Line MAP (mmHg) 100 01/06/2025 10:00 AM Galileo Fuller RN * Genitourinary Question Answer Date of Assessment Author Genitourinary (WDL) WDL 01/16/2025 12:00 PM Armida Quiñones RN Genitourinary Symptoms None 01/16/2025 12:00 P M Armida Parish RN * Neurological Question Answer Date of Assessment Author Level of Consciousness Alert 12:00 PM Armida Parish RN Orientation Level Oriented X4 01/16/2025 12: 00 PM Armida Parish RN Cognition Follows commands;Appropriate judgement 01/16/2025 12:00 PM Armida Parish RN Speech Clear 01/16/2025 12:00 PM Armida Parish RN L Pupil Reaction Brisk 01/15/2025 8:00 PM EST Dauer, Vanda L Pupil Size (mm) 3 01/15/2025 8:0 0 PM Vanda Samuels R Pupil Reaction Brisk 01/15/2025 8:00 PM Vanda Samuels R Pupil Size (mm) 3 01/15/2025 8:0 0 PM Vanda Samuels LUE Motor Response Responds to commands 01/17/20 25 12:00 PM Armida Parish RN LLE Motor Response Responds to commands 01/17/20 25 12:00 PM Armida Parish RN RUE Motor Response Responds to commands 01/17/20 25 12:00 PM Armida Parish RN RLE Motor Response Responds to commands 01/17/20 25 12:00 PM Armida Parish RN Neuro (WDL) X 01/16/2025 12:00 PM Armida Parish RN Swallow Able to swallow toño ds and liquids without difficulty 01/16/2025 12:00 PM Armida Parish RN CIWA Alcohol Withdrawal Assessment No 01/16/2025 12:00 PM Armida Parish RN R Hand Grasp Moderate 01/16/2025 12:00 PM Armida Parish RN L Hand Grasp Moderate 01/16/2025 12:00 PM Armida Parish RN R Foot Dorsiflexion Moderate 01/16/2025 1 2:00 PM Armida Parish, RN L Foot Dorsiflexion Moderate 01/16/2025 1 2:00 PM Armida Parish RN R Foot Plantar Flexion Moderate 5 12:00 PM Armida Parish, RN L Foot Plantar Flexion Moderate 12:00 PM Armida Parish RN R Pupil Shape Round 01/15/2025 8:00 PM Vanda Samuels L Pupil Shape Round 01/15/2025 8:00 PM Vanda Samuels Neuro Symptoms Tremors 01/16/2025 12:00 PM Armida Parish RN Pupil Assessment Yes 01/16/2025 12:0 0 PM Armida Parish RN Hand Grasp/Motor Function/Sensation Assessment Grasp;Dorsiflexion;Beny ntar flexion;Motor response 01/16/2025 12:00 PM Armida Parish RN Neuro Additional Assessments No 01/16/2025 12:00 PM Armida Parish RN * Prior Function Question Answer Date of Assessment Author Level of Mobility Ambulatory- househol d only 01/05/2025 9:02 AM Armida Jean Baptiste Mobility Weld Independent gait without device 01/05/2025 9:02 AM Armida Jean Baptiste History of Falls Yes 01/05/2025 9:02 AM Armida Bravo ADL Performance Needs assistance 01/05/2025 9:02 AM Armida Oshea Receives Help From Spouse 01/05/2025 9:02 AM Armida Jean Baptiste Bathing Needs assist 01/05/2025 9:02 AM Armida Lin Upper Body Dressing Independent 01/05/2025 9:02 AM Armida Oshea Lower Body Dressing Needs assist 01/05/2025 9:02 AM Armida Oshea Grooming Independent 01/05/2025 9:02 AM Armida Lin Toileting Independent 01/05/2025 9:02 AM Armida Lin Eating Independent 01/05/2025 9:02 AM Armida Lin Home Management Skills Independent 01/05/2025 9:02 AM Armida Jean Baptiste * RUE ROM Assessment Question Answer Date of Assessment Author RUEulogio Assessment [facility] 01/05/2025 9:02 AM Armida Rosales * LUE ROM Assessment Question Answer Date of Assessment Author LUEulogio Assessment [facility] 01/05/2025 9:02 AM Armida Rosales * Safe Environment Question Answer Date of Assessment Author 37-Pin Connection [Bed and Wall] Yes 01/16/20 25 8:39 PM Vanda Samuels Arm Bands On ID 01/16/2025 12:00 PM Armida Hernandez, RN Side Rails/Bed Safety 4/4 01/16/2025 12:00 PM Armida Parish, RN NonSkid Footwear On 01/16/2025 12:00 PM Armida Parish RN The Patient's Environment is Safe Yes 025 12:00 PM Armida Parish RN Head of Bed Angle 30 2025 4:00 AM Daylin Jones RN Bed Foot Left Rail Up State No 01/16/2025 3: 00 PM Armiad Parish RN Bed Head Right Rail Up State Yes 01/16/2025 3 :00 PM Armida Parish RN Bed Head Left Rail Up State Yes 01/16/2025 3: 00 PM Armida Parish RN Bed Foot Right Rail Up State No 01/16/2025 3 :00 PM Armida Parish RN Bed Exit System Activate Status No 3:00 PM Armida Parish RN Bed Brake State Yes 01/16/2025 3:00 PM Armiad Farrell ams, RN Bed Low Height State Yes 01/16/2025 3:00 PM Armida Quiñones RN Chair Exit System Activate Status No 025 8:39 PM Vanda Samuels * Fall Risk Interventions Question Answer Date of Assessment Author Safety Promotion/Fall Prevention activity supervised;assistive device/personal items within reach;clutter-free environment maintained;fall prevention program maintained;lighting adjusted;mobility aid in reach;nonskid shoes/slippers when out of bed;room organization consistent;safety round/check completed;toileting scheduled 01/16/2025 12:00 PM Armida Parish RN Enhanced Safety Measures room near unit station;education provided 01/16/2025 12:00 PM Armida Parish RN Toilet Every 2 Hours-In Advance of Need Yes 01/16/2025 12:00 PM Armida Parish RN Hourly Visual Checks Awake;In chair 01/16/2025 3:00 PM Armida Parish RN Room Door Open Deferred to promote rest;Deferred to decrease stimulation 01/16/2025 12:00 PM Armida Parish RN Gait Belt Used For Transfers Not applicable 01/16/2025 12:00 PM Armida Parish RN Fall Bundle Components Personal belongin gs within reach;Call light within reach;Overbed table within reach;Bed in lowest position;Bed wheels locked;Non-skid footwear on if up in chair or ambulating;Fall risk sign on door;Staff to remain with patient during toileting 01/16/2025 12:00 PM Armida Parish RN * Mobility Question Answer Date of Assessment Author Range of Motion active ROM (range of motion) encouraged 01/16/2025 12:00 PM Armida Parish RN Activity Management up in chair 01/16/2025 2 :00 PM Armida Parish RN Activity Assistance Provided independent 01/16/2025 5:15 AM Allison Mix RN Assistive Device Utilized front wheel walker 01/14/2025 8:00 PM Mirtha Bright RN Body Position Melo chair;heels elevated;legs elevated;weight shifting 01/16/2025 2:00 PM Armida Parish RN VTE Prevention/Management bilateral;lower extremity;SCDs (sequential compression devices) off;medication 01/16/2025 4:00 PM Armida Parish RN Head of Bed (HOB) Positioning HOB elevated 01/16/2025 12:00 PM Armida Parish RN Distance Ambulated (ft) 700 01/14/20 11:06 AM Bree Patton RN Ambulation Response Tolerated well 01/16/2025 5 :15 AM Allison Mix RN Repositioned Sitting;Up in chair 01/16/2025 2 :00 PM Armida Parish RN Head of Bed Elevated Self regulated 01/16/2025 12:00 PM Armida Parish RN Heels/Feet Heels elevated off bed;Foot of bed elevated 01/16/2025 12:00 PM Armida Parish RN Reason for Removing Anti-Embolism Device Ambulating 01/16/2025 4:00 AM Allison Mix RN Positioning Frequency Able to turn self 01/17/20 2:00 PM Armida Parish RN * Hygiene Question Answer Date of Assessment Author Perineal Care absorbent pad 01/15/2025 10:20 PM Allison Mix RN Bathing/Skin Care dressed/undressed 01/16/2025 1 0:00 AM Shonda Reveles CNA Skin Protection incontinence pads utilized 01/15/2025 8:00 PM Allison Mix RN Oral Care oral rinse provided;education provided 01/15/2025 8:00 PM Allison Mix RN Oral Care (Yes/No) Yes 01/15/2025 8: 00 PM Allison Mix RN Cruz Care Castile Wipes Used Yes;Education provided;Perineum cleansed with soap/water prior 01/08/2025 6:00 PM Rosibel Guillen CHG (Chlorhexidine Gluconate) Hygiene Wipes 01/16/2025 10:00 AM Shonda Reveles CNA CHNicolette Treatment Refused-Action Taken Previous patient education reinforced 01/07/2025 4:00 PM Fariha Pitts RN * Precautions Question Answer Date of Assessment Author Isolation Precautions precautions maintained 06/2024 12:00 PM Armida Parish RN Precautions Environmental surveillance;Fall risk 01/16/2025 12:00 PM Armida Parish RN * Family/Significant Other Communication Question Answer Date of Assessment Author Family/Significant Other Update Visiting 8:39 PM Vanda Samuels * Comfort and Environment Interventions Question Answer Date of Assessment Author Comfort Repositioned 01/16/2025 2:00 PM Armida Parish RN * Miscellaneous Devices Question Answer Date of Assessment Author Equipment On:;abdominal binder 01/07/2025 8:00 AM E Fariha Glynn RN Abdominal Binder Remains in place 01/07/2025 8:00 PM Zachery Whitten RN Abdominal Binder Care Skin assessed 01/07/2025 8:00 PM Zachery Conn RN * Safety Equipment at Bedside Question Answer Date of Assessment Author Standard Bedside Safety Ambu bags in hallway;Oxygen available and working;Suction available, setup and working 01/16/2025 12:00 PM Armida Parish RN Additional Bedside Safety Bed in locked and low position;Clutter free environment 01/16/2025 12:00 PM Armida Parish RN * Pain 4 Question Answer Date of Assessment Author White-Frances FACES Pain Rating 4 4 01/15/2025 8:25 AM EST Marshall Wells * Pain 5 Question Answer Date of Assessment Author Ravi LIZ Pain Rating 5 6 01/15/2025 8:25 AM EST Marshall Wells * Pain 6 Question Answer Date of Assessment Author Ravi LIZ Pain Rating 6 6 01/15/2025 8:25 AM EST Marshall Wells * Consults Question Answer Date of Assessment Author Integrative Medicine Consult Needed No 01/02/2025 3:56 PM Jolene Vasquez RN Pastoral Care Consult Needed No 01/02/2025 3 :56 PM Jolene Vasquez RN Social Services Consult Needed No 01/02/2025 3:56 PM Jolene Vasquez RN * Oral/Motor Question Answer Date of Assessment Author Dentition Adequate 2025 10:15 AM EST Imelda Obrien RN * Therapy Consults Question Answer Date of Assessment Author PT Evaluation Needed 2 01/02/2025 3:56 PM E Jolene Ratliff RN OT Evaluation Needed 2 01/02/2025 3:56 PM Jolene Perez RN WIENER PACKER Evaluation Needed 2 01/02/2025 3:56 PM Jolene Vasquez RN * Assistive Devices Question Answer Date of Assessment Author Assistive Devices None 01/02/2025 3:56 PM Jolene Vasquez RN * Provider Notification Question Answer Date of Assessment Author Response See orders 01/10/2025 8:15 AM EST Rosibel Delvalle Notification Time [id number] 01/10/2025 6:08 AM EST Anay Rodriguez RN * Alarm Limits Question Answer Date of Assessment Author HR Alarm Limit Low 50 01/06/2025 8:10 PM Isabel Guallpa RN HR Alarm Limit High 120 01/06/2025 8:10 PM Isabel Staples RN RR Alarm Limit Low 8 01/06/2025 8:10 PM Isabel Guallpa RN RR Alarm Limit High 30 01/06/2025 8:10 PM Isabel Staples RN Apnea Alarm Delay 20 01/06/2025 8:10 PM Isabel Guallpa RN SpO2 Alarm Limit Low 90 01/06/2025 8:10 PM E Isabel Lovelace, RN SpO2 Alarm Limit High 100 01/06/2025 8:10 PM Isabel Guallpa, RN BP Systolic Alarm Limit Low 90 01/06/2025 8: 10 PM Isbael Guallpa, RN BP Systolic Alarm Limit High 170 01/06/2025 8 :10 PM Isabel Guallpa, RN BP Diastolic Alarm Limit Low 50 01/06/2025 8 :00 AM Galileo Fuller, RN BP Diastolic Alarm Limit High 90 01/06/2025 8:00 AM Galileo Fuller, RN BP Mean Alarm Limit Low 60 01/06/2025 8:10 P M Isabel Guallpa, RN BP Mean Alarm Limit High 110 01/06/2025 8:10 PM Isabel Guallpa, RN * Transfer of Nursing Care Question Answer Date of Assessment Author Nurse Report Given To Imelda AUGUSTIN 2025 10:20 AM Imelda Calvo RN Transferred Via Bed 2025 10:20 AM Imelda Barber RN Handoff Received From yellow sheet 2025 10:20 AM Imelda Calvo RN * End of Shift Review Question Answer Date of Assessment Author Shift Review Complete Yes 01/16/2025 8:00 AM Armida Parish RN Shift Report Received From Allison Espana RN 01/16/2025 8:0 0 AM Armida Parish RN Shift Report Given To Armida Oscar RN 01/16/2025 8:00 AM Armida Parish, RN * Hourly Rounding Question Answer Date of Assessment Author Hourly Rounding Complete Per Guideline Yes 01/16/2025 3:00 PM Armida Parish, RN * Patient Violence Risk Assessment Question Answer Date of Assessment Author History of Violence: In the past 12 hours has the PATIENT exhibited any of the following? None 01/16/2025 12:00 PM Armida Parish, RN Potential for Violence: In the past 12 hours has the PATIENT exhibited any of the following? None 01/16/2025 12:00 PM Armida Parish, RN Risk No identified risk 01/16/2025 12:00 PM Armida Flynn RN History of Violence: In the past 12 hours has a PARTNER IN CARE of the patient exhibited any of the following? None 01/16/2025 12:00 PM Armida Parish, R N * Mobility Question Answer Date of Assessment Author Ambulation Stand by;Independent 01/15/2025 8:00 PM E Allison Caruso, DEMETRIA * Oxygen Therapy Question Answer Date of Assessment Author Oximetry Probe Site Changed No 01/13/2025 3: 51 PM Dayna Worthington, DEMETRIA * Restart Vitals Timer Answer Date of Assessment Author Yes 01/16/2025 12:02 PM Marlene Reveles CNA * STOP-Bang Questionnaire Question Answer Date of Assessment Author Do you snore loudly? 0 01/02/2025 3:56 PM Jolene Perez RN Do you often feel tired or fatigued after your sleep? 0 01/02/2025 3:56 PM Akilah Vasquez RN Has anyone ever observed you stop breathing in your sleep? 0 01/02/2025 3:56 PM Jung Vasquez RN Do you have or are you being treated for high blood pressure? 0 01/02/2025 3:56 PM Jolene Mueller pe, RN Is BMI greater than 35 kg/m2? 0=No 01/02/2025 3:56 PM Jolene Vasquez RN Age older than 50 years old? 0=No 01/02/2025 3 :56 PM Jolene Vasquez RN Is your neck circumference g reater than 17 inches (Male) or 16 inches (Female)? 0 01/02/2025 3:56 PM Jolene Vasquez RN Gender - Male 1=Yes 01/02/2025 3:56 PM Jolene Mueller pe, RN STOP-Bang Total Score 1 01/02/2025 3:56 PM Jolene Vasquez RN Recent BMI (Calculated) 29.9 01/02/2025 3:56 P M Jolene Vasquez RN * Feeding Question Answer Date of Assessment Author Feeding Interventions pt demo's function al strength and dexterity needed for food tray set up and self feeding routine completion from tray table, intermittent tremulous motor patterns noted throughout intentional grasping and manipulation of items involving both fine and gross motor movement 01/13/2025 12:51 PM Armida Holcomb Feeding Level of Assistance Modified independent 01/13/2025 12:51 PM Armida Holcomb Feeding Where Assessed Chair Level 12:51 PM Armida Holcomb * Grooming Question Answer Date of Assessment Author Grooming Interventions pt demo's functio nal strength, endurance/activity tolerance, and balance needed for simple grooming task completion standing at sink with CGA using RW 01/13/2025 12:51 PM Armida Holcomb Grooming Where Assessed Standing sinkside 2024 12:51 PM Armida Holcomb Grooming Level of Assistance Setup;Contact guard 01/13/2025 12:51 PM Armida Holcomb * Bathing Question Answer Date of Assessment Author UE Bathing Level of Assistance Moderate assistance 01/05/2025 9:02 AM Armida Jean Baptiste LE Bathing Level of Assistance Maximum assistance 01/05/2025 9:02 AM Armida Jean Baptiste * Stairs Question Answer Date of Assessment Author Assistance Contact guard 01/13/2025 11:06 AM EST Diego Craft Rails Single 01/13/2025 11:06 AM EST Diego Ross Device No device 01/13/2025 11:06 AM Diego Kimball * Dynamic Standing Balance Question Answer Date of Assessment Author Dynamic Standing Level of Assistance Independent 01/16/2025 11:29 AM Luis Astorga Dynamic Standing-Balance Support Left upper extremity support;Right upper extremity support 01/08/2025 1:07 PM Micki Galloway Dynamic Standing-Balance Anterior/Posterior weight shifts;Lateral weight shifts 01/08/2025 1:07 PM Micki Galloway * General Question Answer Date of Assessment Author Bib OT Reassessment 61134 01/05/2025 9:44 AM Armida Munguia Patient/Family Goals Statement Patient would like to return home when able 01/05/2025 9:44 AM Armida Jean Baptiste * Home Living Question Answer Date of Assessment Author Home Type House 01/05/2025 9:02 AM Armida Lin Number of Stairs 4 01/05/2025 9:02 AM Armida Bravo Bathroom: Tub/Shower Tub/Shower combo 01/05/2025 9:02 AM Armida Jean Baptiste Bathroom: Toilet Standard 01/05/2025 9:02 AM Armida Bravo Bathroom: Accessibility Accessible via walker 01/06/20 9:02 AM Armida Jean Baptiste Home Living Comments Patient had been to [facility] in September, and was still receiving outpatient PT. 01/05/2025 9:02 AM Armida Jean Baptiste Home Layout One level;Stairs to enter without rails 01/05/2025 9:02 AM Armida Jean Baptiste Home Adaptive Equipment Rollator 01/05/2025 9:02 A M Armida Jean Baptiste Lives With Spouse 01/05/2025 9:02 AM Armida Lin * Date of PT Session Question Answer Date of Assessment Author Next PT Re-Assessment Date 94653 01/16/2025 11: 29 AM Luis Astorga PT Initials 01/16/2025 11:29 AM Luis Astorga Date of PT Session [id number] 01/16/2025 11:29 AM Luis Burgos * Calculated C-SSRS Risk Score (Lifetime/Recent) Answer Date of Assessment Author No Risk Indicated 01/16/2025 12:00 PM Armida Parish RN * [place] Coma Scale Question Answer Date of Assessment Author Best Eye Response Spontaneous 01/16/2025 12:00 PM Armida Parish RN Best Verbal Response Oriented 01/16/2025 12:00 PM Armida Parish RN Best Motor Response Follows commands 01/16/2025 12:00 PM Armida Parish RN [place] Coma Scale Score 15 01/16/2025 12:00 PM Armida Parish RN * Physical Activity Question Answer Date of Assessment Author On average, how many days pe r week do you engage in moderate to strenuous exercise (like a brisk walk)? 2 days 01/02/2025 12:41 PM EST Mariela wKon RN On average, how many minutes do you engage in exercise at this level? 30 min 01/02/2025 12:41 PM EST Mariela Whitt RN * Weight in (lb) to have BMI = 25 Answer Date of Assessment Author 194.4 01/02/2025 7:48 PM EST Allison Rosenbaum RN * Pain Type Answer Date of Assessment Author Acute pain 01/15/2025 6:33 AM EST Mirtha Miranda RN * Pain Assessment Question Answer Date of Assessment Author Pain Orientation Mid 01/14/2025 6:27 AM EST Mirtha Saucedo RN Pain Descriptors Aching;Discomfort 01/14/2025 6:27 AM Mirtha Bright RN Pain Onset Ongoing 01/14/2025 6:27 AM EST Mirtha Luong RN Pain Frequency Constant/continuous 01/14/2025 6:27 AM EST Mirtha Miranda RN Patient's Stated Pain Goal No pain 01/15/2025 4:00 AM Mirtha Bright RN Effect of Pain on Daily Activities adls 01/11/2025 8:22 AM EST Rosibel Delvalle Patient is asleep Yes, assume pain is decreased 01/10/2025 11:26 PM EST Marvin Bartlett RN Clinical Progression Not changed 01/15/2025 8:25 AM Marshall Pineda Pain Score 0 01/16/2025 8:00 AM EST Armida Oscar RN Unable to Self-Report Pain Reason Patient chemically sedated 01/03/2025 4:00 PM EST Elyssa Augustin Pain Assessment 0-10 (Adult DVPRS/Pe ds 0-10) 01/16/2025 8:00 AM EST Armida Oscar RN * Reflexes Question Answer Date of Assessment Author Cough Reflex Present 01/16/2025 12:00 PM Armida Hernandez RN Gag Present 01/16/2025 12:00 PM EST Armida Mora RN * Tremors Question Answer Date of Assessment Author Tremor Location Hands 01/16/2025 12:00 PM EST Armida Arora RN Tremor Severity Fine 01/16/2025 12:00 PM EST Armida Arora RN Tremor Duration with movement 2025 8:00 PM EST Andreina Schaffer RN * Nutrition Question Answer Date of Assessment Author Diet Supplements Boost Glucose Control 01/14/2025 8:00 AM EST Bree Mcfarland RN Diet Type Regular;Low potassium;Other (Comment) 01/16/2025 12:00 PM EST Armida Oscar RN Feeding Able to feed self 01/16/2025 12:00 PM EST Armida Oscar RN Appetite Fair 01/16/2025 12:00 PM EST Armida Mora RN * 4-Eyes Skin Assessment Question Answer Date of Assessment Author 4 Eyes Skin Assessment Completed Yes 01/16/20 8:00 PM Allison Mix RN Manual Dual Sign Off 2nd DEMETRIA Hayes RN 01/15/2025 8: 00 PM EST Allison Rosenbaum RN * Vent Information Question Answer Date of Assessment Author O2 Delivery Method Nasal cannula 01/05/2025 4:00 PM Leo Coats RN * Respiratory Interventions Question Answer Date of Assessment Author Respiratory Interventions Cough and deep breathing 01/16/2025 12:00 PM Armida Parish RN * Cough and Deep Breathe Question Answer Date of Assessment Author Cough And Deep Breathing done independently per patient 01/16/2025 12:00 PM Armida Parish RN * Incentive Spirometry Question Answer Date of Assessment Author Patient Tolerance (IS) fair 8:00 PM Shaka Gillespie RN Administration (IS) previous patient education reinforced 01/07/2025 4:00 PM EST Fariha Hill RN Level Incentive Spirometer (mL) 1500 01/04/2025 8:00 PM Shaka Gillespie RN Incentive Spirometer Predicted Level (mL) 500 01/04/2025 8:00 PM Shaka Gillespie RN Number of Repetitions (IS) 3 01/04/2025 8:00 PM Shaka Gillespie RN * Patient Belongings at Bedside Question Answer Date of Assessment Author Clothing Pants;Shirt;Footwear ;Socks;Underpants 01/02/2025 3:56 PM Jolene Vasquez RN Belongings at Bedside None 01/02/2025 3:56 PM Jolene Vasquez RN * Patient Belongings Sent to Safe/Security Question Answer Date of Assessment Author Belongings Sent to Safe/Security None 01/03/20 3:56 PM Jolene Vasquez RN * Genitourinary Additional Assessments Question Answer Date of Assessment Author Genitourinary Additional Assessments No 06/2024 12:00 PM Armida Parish RN * Integumentary Question Answer Date of Assessment Author Skin Color Appropriate for ethnicity 01/16/2025 12:00 PM Armida Parish RN Skin Condition/Temp Warm;Dry 01/16/2025 1 2:00 PM Armida Parish RN Skin Integrity Bruising;Other (Comment) 01/16/2025 12:00 PM Armida Parish RN Skin Turgor Non-tenting 01/16/2025 12:00 PM Armida Parish RN Skin Tone Light 01/16/2025 12:00 PM Armida Parish RN Bruising Characteristics Scattered 025 12:00 PM Armida Parish RN Integumentary (WDL) X 01/16/2025 1 2:00 PM Armida Parish RN * Patient Belongings Sent Home Question Answer Date of Assessment Author Belongings Sent Home None 01/16/2025 3:44 PM Armida Quiñones RN * Confusion Assessment Method (CAM) Question Answer Date of Assessment Author Acute Onset and Fluctuating Course (1A) No 01/16/2025 12:00 PM Armida Parish RN Acute Onset and Fluctuating Course (1B) No 01/16/2025 12:00 PM Armida Parish RN Inattention (2) No 01/16/2025 12:00 PM Armida Parish RN Disorganized Thinking (3) No 2024 12:00 PM Armida Parish RN Rate Patient's Level of Consciousness (4) Alert (Normal), No 01/16/2025 12:00 PM Armida Parish RN Delirium Present No 01/16/2025 12:0 0 PM Armida Parish, RN * Confusion Assessment Method-ICU (CAM-ICU/PCAM-ICU) Question Answer Date of Assessment Author Feature 1: Acute Onset or Fl uctuating Course Negative 01/13/2025 12:51 PM Armida Holcomb * Feature 3: Altered Level of Consciousness Answer Date of Assessment Author Negative 01/16/2025 12:00 PM EST Eulogio Oscar, RN * Overall CAM-ICU/PCAM-ICU Answer Date of Assessment Author Negative 01/13/2025 12:51 PM Armida Holcomb * Critical-Care Pain Observation Tool Question Answer Date of Assessment Author Facial Expression 0 01/03/2025 4:00 PM EST Charli, Elyssa Body Movements 0 01/03/2025 4:[address], Elyssa Complicance with the Ventila tor (Intubated Patients) 0 01/03/2025 4:00 PM EST Charli, Elyssa Muscle Tension 0 01/03/2025 4:[address], Elyssa Critical-Care Pain Observation Score 0 12/14 4:00 PM EST Charli, Elyssa * Sedation Scales Question Answer Date of Assessment Author RASS 0 01/16/2025 12:00 PM EST Armida Mora RN * Urine Output/Assessment Question Answer Date of Assessment Author Urine Color Unable to assess 01/16/2025 5:15 AM Allison Mckeon RN Urine Appearance Unable to assess 01/16/2025 5:15 AM Allison Hearn RN Urine Odor Unable to assess 01/16/2025 5:15 AM Allison Mckeon RN * Stool Output/Assessment Question Answer Date of Assessment Author Unmeasured Stool Occurrence (hourly total) 1 01/13/2025 6:00 AM Candie Ireland RN Stool Color Brown 01/13/2025 6:00 AM Andreina Aguillon RN Stool Amount Small 01/13/2025 6:00 AM Andreina Aguillon RN Stool Appearance Soft 01/13/2025 6:00 AM Andreina Berumen RN Bowel Incontinence No 01/16/2025 12:00 PM Armida Flynn RN [place] Stool Assessment [place] 01/13/2025 6:00 AM Andreina Ireland RN * Patient Specific Goals Question Answer Date of Assessment Author Patient/Family-Specific Goals (Include Timeframe) Patient will remain free from harm this shift 01/16/2025 8:00 AM Armida Parish RN Individualized Care Needs Safety 01/16/2025 8:00 AM Armida Parish RN Anxieties, Fears or Concerns None 01/16/2025 8:00 AM Armida Parish RN * Delirium Assessment Question Answer Date of Assessment Author Delirium Prevention & Management Yes 01/16/2025 12:00 PM Armida Parish RN Delirium Prevention & Management: Early Mobility Ambulate to extent of patient's ability;Up to chair for meals;Out of room if possible;Educate patient and family about the benfits of early mobility in the hospital 01/16/2025 12:00 PM Armida Parish RN Delirium Prevention & Management: Cognitive Engagement Familiar objects from home provided;Familiar social contact provided;Reorienting communication;Emotional support provided;Optimize pain and other medication management;Environmenta l consistency promoted;Delirium prevention education provided to patient and family 01/16/2025 12:00 PM Armida Parish RN Delirium Prevention & Management: Optimize Sleep/Wake Cycles Calming techniques provided;Natural light during the day 01/16/2025 12:00 PM Armida Parish RN Delirium Scale Used Confusion Assessment Method 01/16/2025 12:00 PM Armida Parish RN * F = Family/Partner in Care Engagement and Empowerment Question Answer Date of Assessment Author How did you engage the family/partner in care? Invited to help deliver patient care 01/06/2025 8:10 PM Isabel Guallpa RN How did the family/partner in care participate? Assisted in plan of care 01/06/2025 8:10 PM Isabel Guallpa RN * Malnutrition Screening Tool (MST) Question Answer Date of Assessment Author Have you recently lost weigh t without trying? 0 01/02/2025 3:56 PM Jolene Vasquez RN Have you been eating poorly because of a decreased appetite? 0 01/02/2025 3:56 PM Jolene Mueller pe, RN * Weight Loss Score Answer Date of Assessment Author 0 01/02/2025 3:56 PM Bri Vasquez RN * Malnutrition Score Answer Date of Assessment Author 0 01/02/2025 3:56 PM Bri Vasquez RN * Communication Support Strategies Answer Date of Assessment Author active listening utilized 2025 12:46 AM Daylin Gil, DEMETRIA * Vitals Question Answer Date of Assessment Author Cardiac Rhythm NSR 01/13/2025 4:30 PM Manjula James RN * Hourly Rounding Question Answer Date of Assessment Author Call Light Call light present a nd within reach 01/07/2025 8:00 PM Zachery Conn RN Rest/ Sleep Awake 01/07/2025 8:00 PM Zachery Conn RN * Standardized Assessments Question Answer Date of Assessment Author Standardized Assessments [facility] 6-Clicks Mobility Assessment 01/05/2025 9:40 AM EST Elyssa Healy * Ampa 6-Click Daily Activities Question Answer Date of Assessment Author Help from Other: Don/Doff Re gular Lower Body Clothings 2 01/08/2025 1:00 PM EST Topher, Nadira Help From Other: Bathing 2 01/08/2025 1:00 PM EST Topher, Nadira Help From Other: Toileting 2 01/08/2025 1:0 0 PM EST Topher Nadira Help From Other: Don/Doff Up per Body Clothings 3 01/08/2025 1:00 PM EST Topher, Nadira Help From Other: Grooming 3 01/08/2025 1:00 PM EST Topher, Nadira Help From Other: Eating Meals 3 01/08/2025 1:00 PM EST Topher, Nadira Ampa 6 Click - Daily Activities Score 15 1:00 PM EST Topher Nadira * Bailee Index Question Answer Date of Assessment Author Feeding 10 01/13/2025 12:51 PM EST Vald Armida roe Bathing 0 01/13/2025 12:51 PM EST Vald ezArmida Grooming 5 01/13/2025 12:51 PM EST Vald ezArmida Dressing 5 01/13/2025 12:51 PM EST Vald ezArmida Bowels 10 01/13/2025 12:51 PM Armida Solis Bladder 10 01/13/2025 12:51 PM Armida Solis Toilet Use 5 01/13/2025 12:51 PM Armida Solis Transfers (Bed to Chair and Back) 10 025 12:51 PM Armida Holcomb Mobility (on Level Surfaces) 10 01/13/2025 1 2:51 PM Armida Holcomb Stairs 5 01/13/2025 12:51 PM Armida Solis Total Score 70 01/13/2025 12:51 PM Armida Solis * Standardized Tests Question Answer Date of Assessment Author Standardized Tests Bailee Index 01/13/2025 12:51 PM E Armida Anton * Danyel/Cubbin Scale Question Answer Date of Assessment Author Age (years) 2 01/06/2025 8:10 PM Isabel Mendes RN Hemodynamics 4 01/06/2025 8:10 PM Isabel Mendes RN Weight/Tissue Viability 3 01/06/2025 8:10 P M Isabel Guallpa RN Respiration 4 01/06/2025 8:10 PM Isabel Mendes RN Past Medical History 2 01/06/2025 8:10 PM Isabel Meier RN Oxygen Requirments 4 01/06/2025 8:10 PM Isabel Guallpa RN General Skin Condition 3 01/06/2025 8:10 PM Isabel Guallpa RN Nutrition 4 01/06/2025 8:10 PM Isabel Mendes RN Medical Condition 4 01/06/2025 8:10 PM Isabel Guallpa RN Incontinence 4 01/06/2025 8:10 PM Isabel Mendes RN Mobility 4 01/06/2025 8:10 PM Isabel Mendes RN Hygiene 3 01/06/2025 8:10 PM Isabel Mendes RN Deduction if patient has bee n in surgery or transported to CT, MRI, or HBOT during last 48 hours 0 01/06/2025 8:10 PM Isabel Guallpa RN Deduction if patient has required blood or clotting factors during last 24 hours 0 01/06/2025 8:10 PM Isabel Guallpa RN Deduction if patient has hypothermia of 35 C or under (core temp) 0 01/06/2025 8:10 PM Karan Guallpa RN Danyel/Cubbin Pressure Risk Score 42 01/06/2025 8:10 PM Isabel Guallpa RN * Elopement Risk Screen Question Answer Date of Assessment Author Does the patient exhibit any of the following behaviors? No 01/16/2025 12:00 PM Armida Parish RN Does the patient have a cour t ordered legal guardian? No 01/16/2025 12:00 PM Armida Parish RN * Manual Muscle Testing - LLE Question Answer Date of Assessment Author Manual Muscle Testing WFL 01/05/2025 9:40 AM Elyssa Figueroa * Manual Muscle Testing - RUE Question Answer Date of Assessment Author Manual Muscle Testing - RUE L 01/05/2025 9: 02 AM Armida Jean Baptiste * Manual Muscle Testing - LUE Question Answer Date of Assessment Author Manual Muscle Testing - LUE L 01/05/2025 9: 02 AM Armida Jean Baptiste * Participants in Care Question Answer Date of Assessment Author Family/Caregiver Spouse 01/16/2025 11:29 AM Luis Astorga Supervisor Photocomposition N/A 01/13/2025 11:06 AM Diego Kimball Family/Caregiver Present Y 01/16/2025 11:29 AM Luis Astorga * Dynamic Sitting Balance Question Answer Date of Assessment Author Level of Assistance Independent 01/16/2025 1 1:29 AM Luis Astorga Dynamic Sitting - Interventions scooting in bedside chair 01/13/2025 12:51 PM Armida Holcomb Dynamic Sitting-Balance Support Feet supported 01/13/2025 12:51 PM Armida Holcomb Dynamic Sitting-Balance Lateral weight shifts;Anterior/Posteri or weight shifts 01/13/2025 12:51 PM Armida Holcomb * Cognition Question Answer Date of Assessment Author Orientation Level Oriented X4 01/05/2025 9:02 AM Armida Jean Baptiste * Static Sitting Balance Question Answer Date of Assessment Author Static Sitting-Level of Assistance Independent 01/16/2025 11:29 AM Luis Astorga Static Sitting-Balance Support Feet supported;Right upper extremity support;Left upper extremity support 01/13/2025 12:51 PM Armida Holcomb * Static Standing Balance Question Answer Date of Assessment Author Static Standing-Level of Assistance Independent 01/16/2025 11:29 AM Luis Astorga Static Standing-Balance Support Right upper extremity support;Left upper extremity support 01/13/2025 12:51 PM Armida Holcomb * OT Assessment Question Answer Date of Assessment Author OT Assessment Results Impaired ADL performance;Impaired IADL performance;Decreased endurance/ventilation/g as exchange;Impaired functional mobility;Impaired fine motor control/coordination;De creased gross motor control/coordination;Im paired balance 01/05/2025 9:02 AM Armida Jean Baptiste Occupational Profile Review of medical/therapy records and extensive additional review of physical, cognitive, or psychosocial history 01/05/2025 9:02 AM Armida Jean Baptiste Clinical Decision Making High 9:02 AM Armida Jean Baptiste Overall Eval complexity Complex 01/06/20 9:02 AM Armida Jean Baptiste Evaluation/Treatment Tolerance Patient limited by fatigue;Patient limited by pain 01/05/2025 9:02 AM Armida Jean Baptiste Rehab Potential Good, to achieve sta anabel therapy goals 01/05/2025 9:02 AM Armida Jean Baptiste Performance Deficits Activities of daily living (ADLs);Instrumental activities of daily living (IADLs);Work;Body functions;Body structures;Motor skills;Habits;Routines; Roles;Personal;Physical 01/05/2025 9:02 AM Armida Jean Baptiste * C-SSRS (Frequent Screener) Question Answer Date of Assessment Author Is patient awake, alert, and able/willing to answer questions appropriately? Yes 01/16/2025 12:00 PM Armida Parish S, R N 1. Wish to be (Past 1 Month) No 12:00 PM Armida Parish, DEMETRIA 2. Non-Specific Active Suici joceline Thoughts (Past 1 Month) No 01/16/2025 12:00 PM Armida Parish, RN 6. Suicidal Behavior (Lifetime) No 12:00 PM Armida Parish, RN * Deferred Question Answer Date of Assessment Author Unable to assess No 01/02/2025 3:56 PM Jolene Moreno, RN * Discharge Planning Continued Question Answer Date of Assessment Author Transportation Home at Discharge Family/Friend will Provide 01/16/2025 1:09 PM Gabriela Aly RN * [facility] 6-Clicks Mobility Assessment Question Answer Date of Assessment Author Difficulty patient has turni ng over in bed (including adjusting bedclothes, sheets, and blankets)? 3 01/13/2025 11:06 AM Diego Kate Difficulty patient has sitti ng down on and standing up from a chair with arms (wheelchair, bedside commode, etc.)? 3 01/13/2025 11:06 AM Dann Oates Difficulty patient has movin g from lying on back to sitting on the side of the bed? 3 01/13/2025 11:06 AM Nazia Oates How much help does the patie nt need moving to and from a bed to a chair (including a wheelchair)? 3 01/13/2025 11:06 AM Diego Kimball How much help does the patie nt need to walk in hospital room? 3 01/13/2025 11:06 AM Diego Aguirre How much help does the patie nt need climbing 3-5 steps with a railing? 3 01/13/2025 11:06 AM Nazia Oates [facility] 6-Clicks Mobility Asse ssment Total 18 01/13/2025 11:06 AM Nazia Oates documented as of this encounter Mental Status * Other Answer Entry Date Author 250 01/14/2025 6:30 AM Mirtha Bright, RN * Pre-op Phone Call Discharge Planning Question Answer Entry Date Author Patient expects to be discharged to: inpatient 2025 10:23 AM EST Imelda Lucas RN * Time Calculation Question Answer Entry Date Author Start Time [id number] 01/16/2025 11:29 AM Luis Astorga Stop Time [id number] 01/16/2025 11:29 AM Luis Astorga Time Calculation (min) 24 01/16/2025 11:29 A M Luis Astorga * OT Therapeutic Procedures Time Entry Question Answer Entry Date Author Self Care/Home Management (A DLs) Time Entry 30 01/13/2025 12:51 PM EST Armida Garsia * HEENT Question Answer Entry Date Author HEENT (WDL) X 01/16/2025 12:00 PM EST Chintan sArmida, RN R Eye Sclera yellow 01/16/2025 12:00 PM EST Anay msArmida S, RN L Eye Sclera yellow 01/16/2025 12:00 PM EST Anay msArmida, RN R Ear Intact 01/15/2025 8:00 PM EST Vanda Gabriel L Ear Intact 01/15/2025 8:00 PM EST Vanda Gabriel Nose Intact 01/16/2025 12:00 PM EST Chintan sArmida S, RN Throat Dry 01/04/2025 4:00 PM EST Tila Vazquez, RN Tongue [place];Moist 01/06/2025 4:00 AM EST Sarah Rivera, RN Voice Hoarse 01/07/2025 4:[address] RN Mucous Membrane(s) [place];Moist;Intact 01/07/2025 4:00 P M EST Fariha Hill RN Teeth Missing teeth 01/16/2025 12:00 PM EST Armida Cueva ms S, RN Head and Face Symmetrical 01/16/2025 12:00 PM EST Armida Cueva ms S, RN Neck Trachea midline 01/15/2025 8:00 PM EST Adrian uer Vanda Lips Intact 01/15/2025 8:00 PM EST Harvey Vanda * Presentation Question Answer Entry Date Author Lines and Tubes Intravenous access 01/16/2025 11 :29 AM Luis Astorga Pre-Session Comments RN agreeable to session. 11:29 AM Luis Astorga Post-Session Comments Patient positioned for comfort with all needs in reach. at bedside. 01/16/2025 11:29 AM EST Fide Luis * BMI (Calculated) Answer Entry Date Author 27.6 01/16/2025 6:10 AM EST Medel, Dynasty K, [facility] * Total Weight Change Percent Answer Entry Date Author 2222 01/16/2025 6:10 AM EST Medel, Dynasty K, [facility] * Weight Change Since Preop Answer Entry Date Author 97.38 01/16/2025 6:10 AM EST Medel, Dynasty K, [facility] * Initial Excess Weight Answer Entry Date Author -86.23 01/02/2025 7:48 PM Allison Mix RN * IBW in lbs (Bariatric) Answer Entry Date Author 190.1 01/02/2025 7:48 PM Allison Mix RN * Weight Change Since Last Visit Answer Entry Date Author 1.6 01/16/2025 6:10 AM EST Medel, Dynasty K, [facility] * IBW in kg (Bariatric) Answer Entry Date Author 86.23 01/02/2025 7:48 PM Allison Mix RN * Patient Profile Question Answer Entry Date Author Referral From Nurse 01/03/2025 10:00 AM EST Marybeth Ornelas Consult Reasons Prayer 01/03/2025 10:00 AM EST Marybeth Rubio Unable to Assess Unavailable 01/03/2025 10:00 AM EST Marybeth Barriga * Preprocedure Normothermia Interventions Question Answer Entry Date Author Warming Blankets Applied Yes 2025 10:22 AM EST Imelda Lucas RN Forced Air Warming Applied No 2025 10: 22 AM EST Imelda Lucas RN * Intraprocedure Normothermia Interventions Question Answer Entry Date Author Minimize Patient Exposure Yes 01/03/2025 8:26 AM EST Ritu Buenrostro RN * Progress Answer Entry Date Author improving 01/16/2025 9:36 AM EST Nimisha Oscar ma, RN * Infection Management Answer Entry Date Author aseptic technique maintained 01/15/2025 8:35 PM Allison Mix RN * Supportive Measures Answer Entry Date Author active listening utilized 2025 12:46 AM Daylin Gil RN * Activity (Behavioral Health) Answer Entry Date Author activity encouraged 2025 12:46 AM Daylin Byrne RN * Pressure Reduction Techniques Answer Entry Date Author frequent weight shift encour aged;heels elevated off bed 01/15/2025 8:35 PM Allison Mix RN * Sleep Hygiene Promotion Answer Entry Date Author awakenings minimized 2025 12:46 AM Daylin Cotto RN * Pain Management Interventions Answer Entry Date Author medication (see MAR) 01/15/2025 6:33 AM EST Mirtha Story RN * Fluid/Electrolyte Management Answer Entry Date Author intravenous fluid replacement initiated 01/13/20 10:23 AM Imelda Calvo RN * Fever Reduction/Comfort Measures Answer Entry Date Author lightweight clothing;lightweight bedding 8:35 PM Allison Mix RN * Trust Relationship/Rapport Answer Entry Date Author care explained;questions ans wered;questions encouraged 2025 12:46 AM Daylin Jones RN * Pressure Reduction Devices Answer Entry Date Author positioning supports utilized 01/15/2025 8:35 PM Allison Mix RN * Elevated Risk Identified Answer Entry Date Author fluid and electrolyte imbalance 2025 10:23 AM Imelda Calvo RN * Spasticity Management Answer Entry Date Author positioned with supportive d evice;spastic muscles stretched;standing frame utilized;triggers managed;weight-bearing facilitated 01/10/2025 4:22 PM EST Rosibel Delvalle * Elevated Risk Identified Answer Entry Date Author procedure-related injury 2025 10:23 AM Imelda Calvo RN * Social Functional Ability Promotion Answer Entry Date Author autonomy promoted 01/04/2025 8:56 PM EST Shaka Cowart RN * Environment Familiarity/Consistency Answer Entry Date Author daily routine followed 01/10/2025 4:22 PM EST Rosibel Wise * Infection Prevention Answer Entry Date Author equipment surfaces disinfect ed;hand hygiene promoted;rest/sleep promoted;single patient room provided 01/14/2025 7:52 PM Bree Patton RN * Outcome Evaluation Answer Entry Date Author pt verbalized understanding of current plan of care 01/14/2025 5:45 PM Bree Patton RN * Medication Review/Management Answer Entry Date Author medications reviewed 01/15/2025 8:37 PM Allison Cavanaugh RN * Self-Care Promotion Answer Entry Date Author independence encouraged;BADL personal objects within reach 01/15/2025 8:37 PM Allison Mix RN * Goal: Anesthesia/Sedation Recovery Question Answer Entry Date Author Outcome Anesthesia/Sedation Recovery met 2025 1:12 PM Rodney Bain RN * Discharge Needs Assessment Question Answer Entry Date Author Discharge Facility/Level of Care Needs 1-Home or Self Care 01/16/2025 1:09 PM Gabriela Aly RN Equipment Needed After Discharge walker, rolling 01/16/2025 1:09 PM Gabriela Aly RN Equipment Currently Used at Home none 01/16/2025 1:09 PM Gabriela Aly RN Current Outpatient/Agency/Support Group clinic(s) 01/16/2025 1:09 PM Gabriela Aly RN Anticipated Changes Related to Illness none 01/16/2025 1:09 PM Gabriela Aly RN Transportation Anticipated family or fri end will provide 01/16/2025 1:09 PM Gabriela Aly RN Outpatient/Agency/Support Group Needs clinic(s) 01/16/2025 1:09 PM Gabriela Aly RN Transportation Concerns none 01/17/20 1:09 PM Gabriela Aly RN Current Discharge Risk chronically ill 1:09 PM Gabriela Aly RN Readmission Within the Last 30 Days no previous admission in last 30 days 01/16/2025 1:09 PM Gabriela Aly RN Patient/Family Anticipated Services at Transition outpatient care 01/16/2025 1:09 PM Gabriela Aly RN Patient/Family Anticipates Transition to home 01/16/2025 1:09 PM Gabriela Aly RN Does the patient need discharge transport arranged? No 01/16/2025 1:09 PM Gabriela Aly RN Has discharge transport been arranged? No 01/16/2025 1:09 PM Gabriela Aly RN Who is requesting discharge planning? Provider 01/16/2025 1:09 PM Gabriela Aly RN * Goal: Optimal Comfort and Wellbeing Question Answer Entry Date Author Outcome Optimal Comfort and Wellbeing met 2025 1:12 PM Rodney Bain RN Elevated Risk Identified pain 2025 10:23 AM EST Imelda Lucas RN * Goal: Minimized Risk/Safety Maintenance Question Answer Entry Date Author Outcome Minimized Risk and Safety met 025 1:12 PM Rodney Bain, DEMETRIA * Goal: Physiologic Homeostasis Question Answer Entry Date Author Outcome Physiologic Homeostasis met 1:12 PM Rodney Bain, DEMETRIA * Weight Change 24 hrs Answer Entry Date Author 1.6 01/16/2025 6:10 AM EST Elver Medel [facility] * Facility NPI Question Answer Entry Date Author NPI Medical 01/20/2025 7:23 PM EST Danette Perez RN * Precautions Question Answer Entry Date Author Medical Precautions Post-Surgical precautions;Fall precautions 01/05/2025 9:02 AM EST Armida Joyce Post-Surgical Precautions Abdominal: no lifting >10# 01/05/2025 9:02 AM Armida Jean Baptiste * Oxygen Therapy Question Answer Entry Date Author O2 Flow Rate (L/min) 2 01/05/2025 9:40 AM Elyssa Herrera * Delirium Assessment Question Answer Entry Date Author CAM-ICU/PCAM-ICU No 01/13/2025 11:06 AM EST Diego West * JHHLM Question Answer Entry Date Author HLM Daily Mobility Score 8 01/16/2025 11 :29 AM EST Luis Elizalde * Cognition Question Answer Entry Date Author Deficit Awareness Fully aware of deficits 2024 12:51 PM EST Armida Garsia Mood/Behavior Alert;Distractible;I mpulsiv e 01/13/2025 12:51 PM Armida Holcomb Cognitive Skill Development Intervention Pt mildly distractable and intermittently benefited from modified command following and/or visual fedback (modeling) to support multi-step instruction. 01/08/2025 11:42 AM EST TopherNadira Overall Cognitive Status WFL 025 12:51 PM EST Armida Garsia Arousal/Alertness Appropriate response s to stimuli 01/13/2025 12:51 PM Armida Holcomb Attention Span Appears intact 01/13/2025 12:51 PM Armida Holcomb Safety Judgment Good awareness of sa fety precautions 01/13/2025 12:51 PM Armida Holcomb Awareness of Errors Good awareness of er rors made 01/13/2025 12:51 PM Armida Holcomb Method of Communication Verbal 01/14/20 12:51 PM Armida Holcomb Single Step Commands Consistently 01/13/2025 12:51 PM Armida Holcomb Multi-Step Commands Consistently 01/13/2025 1 2:51 PM Armida Holcomb * PT Assessment Question Answer Entry Date Author History Profile 3 or more personal f actors and/or comorbidities 01/05/2025 9:40 AM EST Short, Elyssa Evaluation/Treatment Tolerance Patient limited by pain;Patient limited by fatigue 01/05/2025 9:40 AM EST Short, Elyssa Diagnosis Impaired functional mobility 9:40 AM EST Short, Elyssa Clinical Presentation Unstable and unpre dictable characteristics 01/05/2025 9:40 AM EST Short, Elyssa Clinical Decision Making High complexity 025 9:40 AM EST Short, Elyssa Rehab Potential Good, to achieve sta anabel therapy goals 01/05/2025 9:40 AM EST Short, Elyssa Activity Tolerance Tolerates 10 - 20 mi n activity with multiple rests 01/05/2025 9:40 AM EST Short, Elyssa * HLM Score Question Answer Entry Date Author HLM Daily Mobility Goal 8 01/15/2025 8:0 0 PM EST Allison Rosenbaum, RN * Plan of Care Reviewed With Answer Entry Date Author patient 01/16/2025 9:36 AM EST Nimisha Oscar ma, RN * Pressure Injury Prevention (PIP) Interventions Question Answer Entry Date Author Pressure Reducing Devices Pillow 2024 12:00 PM EST Armida Oscar, RN Preventative Foam Dressing Location Coccyx 01/07/2025 8:00 PM EST Duodu, Zachery, RN Preventative Foam Dressing Intervention Applied 01/06/2025 8:00 AM EST Galileo Abdi RN Bed Type Acute Care Bed 01/16/2025 12:00 PM EST Armida Oscar RN * Vital Signs Question Answer Entry Date Author BP 137/86 01/16/2025 12:02 PM EST Inte rface, Doc Flowsheet In Pulse 82 01/16/2025 12:02 PM EST Inte rface, Doc Flowsheet In Heart Rate Source Monitor 01/16/2025 3:20 AM EST Allison Rosenbaum RN MAP (mmHg) 103 01/16/2025 12:02 PM EST Inte bruna Doc Flowsheet In Patient Position Lying 01/16/2025 6:09 AM EST Allison Bernal RN * Oxygen Therapy Question Answer Entry Date Author SpO2 95 01/16/2025 12:02 PM EST InterfaceLennox Flowsheet In FiO2 (%) 40 01/03/2025 5:00 PM Elyssa Landa ETCO2 (mmHg) 29 01/03/2025 5:00 PM EST Elyssa Augustin Vent Mode PS/CPAP 01/03/2025 5:00 PM EST Elyssa Augustin Pulse Oximetry Type Intermittent 01/16/2025 3 :20 AM Allison Mix RN Patient Activity During SpO2 Measurement At rest 01/16/2025 3:20 AM Allison Mix RN Oximetry Probe Site Location Left Digit 2025 10:15 AM EST Imelda Lucas RN * Height and Weight Question Answer Entry Date Author Height 74.016 01/02/2025 7:48 PM Allison Fan RN Height Method Stated 01/02/2025 7:48 PM Allison Cavanaugh RN IBW/kg (Calculated) 82.24 01/02/2025 7:48 PM Allison Puckett RN * Pain 2 Question Answer Entry Date Author Pain Score 2 1 01/15/2025 8:25 AM EST Marshall Hopper * Invasive Hemodynamic Monitoring Question Answer Entry Date Author CVP (mean) 13 01/04/2025 6:00 AM EST Eleazar Mac RN PAP (Mean) 25 01/04/2025 6:00 AM Eleazar Tang RN PAP /01/04/2025 2:00 AM Eleazar Tang RN * Neurological Question Answer Entry Date Author Neuro (WDL) X 01/07/2025 12:50 AM Isabel Guallpa RN Neuro Additional Assessments Juanpablo Coma Scale 01/07/2025 12:50 AM Isabel Guallpa RN Reflexes Cough;Gag 01/04/2025 4:[address] RN * Cardiac Question Answer Entry Date Author Ectopy Premature ventricula r contractions 01/06/2025 4:00 AM EST Sarah Montanez RN Ectopy Frequency Rare 01/05/2025 4:00 PM Leo Brown RN Cardiac Regularity Regular 01/06/2025 4: 00 PM Galileo Fuller RN Cardiac ([facility]) X 01/07/2025 12:50 AM Isabel Guallpa RN * Plastic Mould Maker Question Answer Entry Date Author Telemetry Strip Reviewed Yes, I have reviewed and acknowledged. 01/06/2025 8:10 PM Isabel Guallpa RN Bedside Plastic Mould Maker On Yes 01/07/2025 12:50 AM Isabel Guallpa RN Bedside Cardiac Audible Yes 01/08/20 12:50 AM Isabel Guallpa RN Bedside Cardiac Alarms Set Yes 01/07/2025 12:50 AM Isabel Guallpa RN * Pacemaker Question Answer Entry Date Author Pacemaker No 01/16/2025 12:00 PM Armida Hernandez RN * Gastrointestinal Question Answer Entry Date Author Most Recent BM Date [address] 01/15/2025 8 :00 PM EST Allison Rosenbaum RN Passing Flatus Yes 01/16/2025 12:00 PM Armida Parish RN Abdominal Tenderness Soft;Tenderness 01/16/2025 12:00 PM Armida Parish RN Bowel Sounds (All Quadrants) Present 06/2024 12:00 PM Armida Parish RN Anus/Rectum Evaluation and Tone Unable to assess 01/16/2025 4:22 AM EST Allison Rosenbaum RN Gastrointestinal (WDL) X 12:00 PM Armida Parish RN Abdomen Inspection Soft;Rounded;Surgica l scar 01/16/2025 12:00 PM Armida Parish RN GI Symptoms None 01/16/2025 12:00 PM Armida Parish RN Nausea Precipitating Factors Movement 8:57 AM EST Tila Vazquez RN Relieved by Laxative 01/07/2025 8:00 AM EST Fariha Hill RN Gastrointestinal Additional Assessments No 01/16/2025 12:00 PM Armida Parish RN * Peripheral Vascular Question Answer Entry Date Author Peripheral Vascular (WDL) X 2024 12:00 PM Armida Parish RN Generalized Edema +1 01/16/2025 12: 00 PM Armida Parish RN Perineal Edema Non-pitting 2025 4:00 AM EST Daylin Mckeon RN RUE Edema +1 01/13/2025 3:35 PM Rodney Carbajal RN RLE Edema +2 01/16/2025 12:00 PM Armida Parish RN LUE Edema +1 01/13/2025 3:35 PM Rodney Carbajal RN LLE Edema +2 01/16/2025 12:00 PM Armida Parish RN Capillary Refill Less than/equal to 2 seconds (All extremities) 01/16/2025 12:00 PM Armida Parish RN Pulses R radial;L radial;R pedal;L pedal 01/16/2025 12:00 PM Armida Parish RN Cyanosis None 01/16/2025 12:00 PM Armida Parish RN Edema Generalized;Right lo wer extremity;Left lower extremity 01/16/2025 12:00 PM Armida Parish RN * RUE Neurovascular Assessment Question Answer Entry Date Author RUE Capillary Refill Less than/equal to 2 seconds 01/16/2025 12:00 PM Armida Parish RN R Radial Pulse +2 01/16/2025 12:00 PM Armida Parish RN * LUE Neurovascular Assessment Question Answer Entry Date Author LUE Capillary Refill Less than/equal to 2 seconds 01/16/2025 12:00 PM Armida Parish RN L Radial Pulse +2 01/16/2025 12:00 PM Armida Parish RN * RLE Neurovascular Assessment Question Answer Entry Date Author RLE Capillary Refill Less than/equal to 2 seconds 01/16/2025 12:00 PM Armida Parish RN R Posterior Tibial Pulse +1 025 3:35 PM Rodney Carbajal RN R Pedal Pulse +1 01/16/2025 12:00 PM Armida Parish RN * LLE Neurovascular Assessment Question Answer Entry Date Author LLE Capillary Refill Less than/equal to 2 seconds 01/16/2025 12:00 PM Armida Parish RN L Posterior Tibial Pulse +1 025 3:35 PM Rodney Carbajal RN L Pedal Pulse +1 01/16/2025 12:00 PM Armida Parish RN * Musculoskeletal Question Answer Entry Date Author RUE Full movement 01/16/2025 12:00 PM Armida Parish RN RLE Full movement;Swelling 01/16/2025 12:00 PM Armida Parish RN LUE Full movement 01/16/2025 12:00 PM Armida Parish RN LLE Full movement;Swelling 01/16/2025 12:00 PM Armida Parish RN Musculoskeletal (WDL) X 01/16/2025 12:00 PM Armida Parish RN Musculoskeletal Additional Assessments No 01/16/2025 12:00 PM Armida Parish RN * Urine Assessment Question Answer Entry Date Author Urinary Incontinence No 01/16/2025 12:00 PM Armida Parish RN * Genitalia Question Answer Entry Date Author Male Genitalia Intact 01/16/2025 12:00 PM Armida Farrell ams, RN * Psychosocial Question Answer Entry Date Author Psychological state Calm;Cooperative 01/16/2025 12:00 PM Armida Parish RN Family Behaviors Calm;Cooperative 01/16/2025 12: 00 PM Armida Parish RN Needs Expressed Denies 01/16/2025 12:00 PM Armida Parish RN Psychosocial (WDL) WDL 01/16/2025 12 :00 PM Armida Parish RN Psychosocial Additional Assessments No 01/16/2025 12:00 PM Armida Parish RN Ability to Express Feelings Able to express 06/2024 12:00 PM Armida Parish RN Ability to Express Needs Able to express 025 12:00 PM Armida Parish RN Ability to Express Thoughts Able to express 06/2024 12:00 PM Armida Parish RN Length of Time/Family Visitation Overnight 01/16/2025 12:00 PM Armida Parish RN Ability to Understand Others Understands 06/2024 12:00 PM Armida Parish RN * Intake Question Answer Entry Date Author [address] 01/16/2025 6:03 AM EST Allison Gavin RN I.V. 575 01/15/2025 6:33 AM EST Mirtha Luong RN Saline Flush (mL) 50 01/05/2025 5:00 AM EST Shaka Burciaga RN * Silva Fall Risk Question Answer Entry Date Author History of Falling, Immediat e or Within 3 Months 0 01/16/2025 12:00 PM Armida Parish, Merry N Secondary Diagnosis 15 01/16/2025 12:00 PM Armida Quiñones RN Ambulatory Aid 0 01/16/2025 12:00 PM EST Armida Beckwith ams, RN Intravenous Therapy/Heparin Lock 20 01/17/20 25 12:00 PM Armida Parish RN Gait/Transferring 0 01/16/2025 12:00 PM Armida Parish RN Mental Status 0 01/16/2025 12:00 PM EST Armida Cueva ms RN Silva Fall Risk Score 35 01/16/2025 12:00 PM Armida Parish RN * Rosendo Scale Question Answer Entry Date Author Sensory Perceptions 4 01/16/2025 12:00 PM Armida Quiñones RN Moisture 4 01/16/2025 12:00 PM Armida Hernandez, RN Activity 3 01/16/2025 12:00 PM Armida Hernandez, RN Mobility 3 01/16/2025 12:00 PM Armida Hernandez, RN Nutrition 3 01/16/2025 12:00 PM Armida Hernandez, RN Friction and Shear 3 01/16/2025 12:00 PM Armida Flynn RN Rosendo Scale Score 20 01/16/2025 12:00 PM Armida Flynn, RN * BSA (Calculated - sq m) Answer Entry Date Author 2.26 01/16/2025 6:10 AM EST Medel, Dynasty K, [facility] * BMI (Calculated) Answer Entry Date Author 27.56 01/16/2025 6:10 AM EST Gianfranco Dynasty K, [facility] * Pain Location Answer Entry Date Author Abdomen 01/15/2025 6:33 AM Mirtha Bright RN * Cardiac Question Answer Entry Date Author Unloader On No 01/16/2025 12:00 PM Armida Parish RN Telemetry Audible No 01/09/2025 4:00 AM Daylin Jones RN Telemetry Alarms Set No 01/09/2025 4:00 AM E Daylin Bañuelos RN Telemetry Box Number [id number] 01/08/2025 8:00 AM E Rosibel Wen Cardiac (WDL) WDL 01/16/2025 12:00 PM Armida Kasper ms, RN Pacemaker No 01/16/2025 12:00 PM Armida Hernandez RN Cardiac Regularity Regular 01/16/2025 12:00 PM Armida Flynn RN Heart Sounds S1, S2 01/16/2025 12:00 PM Armida Hernandez RN Telemetry/Plastic Mould Maker No 01/16/2025 12:0 0 PM Armida Parish RN Jugular Venous Distention (JVD) No 12:00 PM Armida Parish RN Cardiac Symptoms None 01/16/2025 12:00 PM Armida Parish RN * Respiratory Question Answer Entry Date Author Artificial airway present Yes 01/04/2025 4:00 AM EST Eleazar Bradford RN Bilateral Breath Sounds Clear;Diminished 025 12:00 PM EST Armida Oscar RN Respiratory Pattern Regular 01/16/2025 1 2:00 PM Armida Parish RN Chest Assessment Symmetrical;Chest expansion symmetrical 01/16/2025 12:00 PM Armida Parish RN Cough Cries with cough 01/05/2025 4:00 AM EST Shaka Burciaga RN Respiratory (WDL) X 01/16/2025 12: 00 PM EST Armida Oscar RN Respiratory Additional Assessments No 01/16/2025 12:00 PM Armida Parish RN Respiratory Effort Unlabored 01/16/2025 12 :00 PM Armida Parish RN Respiratory Depth/Rhythm Regular 025 12:00 PM Armida Parish RN * Vitals Question Answer Entry Date Author Temp 97.9 01/16/2025 12:02 PM EST Shonda Aguilar CNA Temp src Oral 01/16/2025 12:02 PM EST Shonda Aguilar [facility] Resp 18 01/16/2025 12:02 PM EST Shonda Aguilar CNA Weight 3435.65 01/16/2025 6:10 AM EST [place], Dynasty K, [facility] BP Location Left arm 01/16/2025 12:02 PM EST Shonda Aguilar SJACKA BP Method Automatic 01/16/2025 12:02 PM EST Shonda Aguilar S, [facility] Weight Method Standing scale 01/16/2025 6:10 AM EST Th ornton, Dynasty K, [facility] Oxygen Therapy None 01/16/2025 12:02 PM EST Gr Shonda flowers [facility] * Propofol Drip Question Answer Entry Date Author Volume (mL) Propofol 0 01/11/2025 6:07 AM Marvin Marcos, DEMETRIA * Point of Care Tests Question Answer Entry Date Author Provider Role Resident 01/10/2025 8:15 AM EST Rosibel Delvalle Blood Glucose Meter 158 01/16/2025 1 2:02 PM Shonda Reveles CNA Provider Name Jayjay Quesada MD 01/10/2025 8:15 AM Rosibel Guillen Method of Communication Face to face 01/11/20 8:15 AM Rosibel Guillen Reason for Communication Review case;Evaluate;Patient request 01/10/2025 8:15 AM Rosibel Guillen Name of Nurse Notified of Blood Glucose Results (First and Last) Augusta Oscar 01/16/2025 12:02 PM Shonda Reveles CNA Glucose Sample Retrieved From Finger stick 01/16/2025 12:02 PM Shonda Reveles CNA * Vision - Basic Assessment Question Answer Entry Date Author Patient Visual Report no acute visual changes 9:02 AM Armida Jean Baptiste Current Vision Intact 01/05/2025 9:02 AM Armida Jean Baptiste * Advance Directives (For Healthcare) Question Answer Entry Date Author Advance Directive Patient would not li ke information 01/02/2025 3:56 PM Jolene Vasquez RN Pre-existing DNR/DNI Order No 01/02/2025 3:56 PM Jolene Vasquez RN Information Provided on Healthcare Directives No 01/02/2025 3:56 PM Jolene Vasquez RN Patient Requests Assistance No 01/02/2025 3:56 PM Jolene Vasquez RN Have you reviewed your Advance Directive and is it valid for this stay? No 01/02/2025 3:56 PM Jolene Vasquez RN * Nutrition Screen Question Answer Entry Date Author Difficulty Chewing or Swallowing No 01/03/20 3:56 PM Jolene Vasquez RN Burn, Pressure Injury, or Non-Healing Wound No 01/02/2025 3:56 PM Jolene Vasquez RN Home Tube Feeding or Total Parenteral Nutrition (TPN) No 01/02/2025 3:56 PM Akilah Vasquez RN Food allergy, Restorationist, or Cultural nutrition needs No 01/02/2025 3:56 PM Jung Vasquez RN * Trauma/Abuse Assessment Question Answer Entry Date Author Physical Abuse Denies 01/02/2025 3:56 PM Jolene Yi RN Verbal Abuse Denies 01/02/2025 3:56 PM Jolene David RN * Values/Beliefs Question Answer Entry Date Author Cultural Requests During Hospitalization NA 01/02/2025 3:56 PM Jolene Vasquez RN Spiritual Requests During Hospitalization agrees to blood transfusion 2025 10:22 AM Imelda Calvo RN Unable to assess No 01/02/2025 3:56 PM Jolene Vasquez RN * Art Line (1) Question Answer Entry Date Author Arterial Line MAP (mmHg) 124 01/05/2025 9:00 AM Leo Brown RN Arterial Line BP 183/90 01/05/2025 9:00 AM Leo Lopez RN PPV 3 01/03/2025 4:00 PM EST Elyssa Christiansen * Art Line (2) Question Answer Entry Date Author Arterial Line BP 2 162/82 01/06/2025 10:00 AM Galileo Hunter RN Arterial Line MAP (mmHg) 100 01/06/2025 10:00 AM Galileo Fuller RN * Genitourinary Question Answer Entry Date Author Genitourinary (WDL) WDL 01/16/2025 12:00 PM E Armida Schneider RN Genitourinary Symptoms None 01/16/2025 12:00 P M Armida Parish RN * Neurological Question Answer Entry Date Author Level of Consciousness Alert 12:00 PM Armida Parish RN Orientation Level Oriented X4 01/16/2025 12: 00 PM Armida Parish RN Cognition Follows commands;Appropriate judgement 01/16/2025 12:00 PM Armida Parish RN Speech Clear 01/16/2025 12:00 PM Armida Parish RN L Pupil Reaction Brisk 01/15/2025 8:00 PM Vanda Samuels Pupil Size (mm) 3 01/15/2025 8:0 0 PM Vanda Samuels Pupil Reaction Brisk 01/15/2025 8:00 PM Vanda Samuels Pupil Size (mm) 3 01/15/2025 8:0 0 PM Vanda Samuels Motor Response Responds to commands 01/17/20 12:00 PM Armida Parish RN LLE Motor Response Responds to commands 01/17/20 12:00 PM Armida Parish RN RUE Motor Response Responds to commands 01/17/20 12:00 PM Armida Parish RN RLE Motor Response Responds to commands 01/17/20 25 12:00 PM Armida Parish RN Neuro (WDL) X 01/16/2025 12:00 PM Armida Parish RN Swallow Able to swallow toño ds and liquids without difficulty 01/16/2025 12:00 PM Armida Parish RN CIWA Alcohol Withdrawal Assessment No 01/16/2025 12:00 PM Armida Parish RN R Hand Grasp Moderate 01/16/2025 12:00 PM Armida Parish RN L Hand Grasp Moderate 01/16/2025 12:00 PM Armida Parish RN R Foot Dorsiflexion Moderate 01/16/2025 1 2:00 PM Armida Parish RN L Foot Dorsiflexion Moderate 01/16/2025 1 2:00 PM Armida Parish RN R Foot Plantar Flexion Moderate 5 12:00 PM Armida Parish RN L Foot Plantar Flexion Moderate 5 12:00 PM Armida Parish RN R Pupil Shape Round 01/15/2025 8:00 PM Vanda Samuels L Pupil Shape Round 01/15/2025 8:00 PM Vanad Samuels Neuro Symptoms Tremors 01/16/2025 12:00 PM Armida Parish RN Pupil Assessment Yes 01/16/2025 12:0 0 PM Armida Parish RN Hand Grasp/Motor Function/Sensation Assessment Grasp;Dorsiflexion;Plan tar flexion;Motor response 01/16/2025 12:00 PM Armida Parish RN Neuro Additional Assessments No 01/16/2025 12:00 PM Armida Parish RN * Current Blood Glucose Answer Entry Date Author 158 01/16/2025 12:06 PM Eulogio Parish RN * Insulin Instructions: Answer Entry Date Author No dose needed. 01/16/2025 8:14 AM Nimisha Parish ma, RN * Current Blood Glucose Answer Entry Date Author 187 01/16/2025 3:03 AM Allison Mix RN * Insulin Instructions: Answer Entry Date Author No dose needed. 01/16/2025 3:03 AM Allison Mix RN * Safe Environment Question Answer Entry Date Author 37-Pin Connection [Bed and Wall] Yes 01/16/20 8:39 PM Vanda Samuels Arm Bands On ID 01/16/2025 12:00 PM Armida Hernandez RN Side Rails/Bed Safety 4/4 01/16/2025 12:00 PM Armida Parish RN NonSkid Footwear On 01/16/2025 12:00 PM Armida Parish RN The Patient's Environment is Safe Yes 025 12:00 PM Armida Parish RN Head of Bed Angle 30 2025 4:00 AM Daylin Jones RN Bed Foot Left Rail Up State No 01/16/2025 3: 00 PM Armida Parish RN Bed Head Right Rail Up State Yes 01/16/2025 3 :00 PM Armida Parish RN Bed Head Left Rail Up State Yes 01/16/2025 3: 00 PM Armida Parish RN Bed Foot Right Rail Up State No 01/16/2025 3 :00 PM Armida Parish RN Bed Exit System Activate Status No 3:00 PM Armida Parish RN Bed Brake State Yes 01/16/2025 3:00 PM Armida Farrell ams, RN Bed Low Height State Yes 01/16/2025 3:00 PM E Armida Schneider RN Chair Exit System Activate Status No 025 8:39 PM Vanda Samuels * Fall Risk Interventions Question Answer Entry Date Author Safety Promotion/Fall Prevention activity supervised;assistive device/personal items within reach;clutter-free environment maintained;fall prevention program maintained;lighting adjusted;mobility aid in reach;nonskid shoes/slippers when out of bed;room organization consistent;safety round/check completed;toileting scheduled 01/16/2025 12:00 PM Armida Parish RN Enhanced Safety Measures room near unit station;education provided 01/16/2025 12:00 PM Armida Parish RN Toilet Every 2 Hours-In Advance of Need Yes 01/16/2025 12:00 PM Armida Parish RN Hourly Visual Checks Awake;In chair 01/16/2025 3:00 PM Armida Parish RN Room Door Open Deferred to promote rest;Deferred to decrease stimulation 01/16/2025 12:00 PM Armida Parish RN Gait Belt Used For Transfers Not applicable 01/16/2025 12:00 PM Armida Parish RN Fall Bundle Components Personal belongin gs within reach;Call light within reach;Overbed table within reach;Bed in lowest position;Bed wheels locked;Non-skid footwear on if up in chair or ambulating;Fall risk sign on door;Staff to remain with patient during toileting 01/16/2025 12:00 PM Armida Parish RN * Mobility Question Answer Entry Date Author Range of Motion active ROM (range of motion) encouraged 01/16/2025 12:00 PM Armida Parish RN Activity Management up in chair 01/16/2025 2 :00 PM Armida Parish RN Activity Assistance Provided independent 01/16/2025 5:15 AM Allison Mix RN Assistive Device Utilized front wheel walker 04/2024 8:00 PM Mirtha Bright RN Body Position Melo chair;heels elevated;legs elevated;weight shifting 01/16/2025 2:00 PM Armida Parish RN VTE Prevention/Management bilateral;lowe r extremity;SCDs (sequential compression devices) off;medication 01/16/2025 4:00 PM Armida Parish RN Head of Bed (HOB) Positioning HOB elevated 01/16/2025 12:00 PM Armida Parish RN Distance Ambulated (ft) 700 01/14/20 25 11:06 AM Bree Patton RN Ambulation Response Tolerated well 01/16/2025 5 :15 AM EST Robi, Allison, RN Repositioned Sitting;Up in chair 01/16/2025 2 :00 PM Armida Parish RN Head of Bed Elevated Self regulated 01/16/2025 12:00 PM Armida Parish RN Heels/Feet Heels elevated off bed;Foot of bed elevated 01/16/2025 12:00 PM Armida Parish RN Reason for Removing Anti-Embolism Device Ambulating 01/16/2025 4:00 AM Allison Mix RN Positioning Frequency Able to turn self 01/17/20 2:00 PM Armida Parish RN * Hygiene Question Answer Entry Date Author Perineal Care absorbent pad 01/15/2025 10:20 PM Allison Mix RN Bathing/Skin Care dressed/undressed 01/16/2025 1 0:00 AM Shonda Reveles CNA Skin Protection incontinence pads utilized 01/15/2025 8:00 PM Allison Mix RN Oral Care oral rinse provided;education provided 01/15/2025 8:00 PM Allison Mix RN Oral Care (Yes/No) Yes 01/15/2025 8: 00 PM Allison Mix RN Cruz Care Castile Wipes Used Yes;Education provided;Perineum cleansed with soap/water prior 01/08/2025 6:00 PM Rosibel Guillen CHG (Chlorhexidine Gluconate) Hygiene Wipes 01/16/2025 10:00 AM Shonda Reveles CNA CHG Treatment Refused-Action Taken Previous patient education reinforced 01/07/2025 4:00 PM Fariha Pitts RN * Precautions Question Answer Entry Date Author Isolation Precautions precautions maintained 06/2024 12:00 PM Armida Parish RN Precautions Environmental surveillance;Fall risk 01/16/2025 12:00 PM Armida Parish RN * Family/Significant Other Communication Question Answer Entry Date Author Family/Significant Other Update Visiting 8:39 PM Vanda Samuels * Comfort and Environment Interventions Question Answer Entry Date Author Comfort Repositioned 01/16/2025 2:00 PM Armida Parish RN * Miscellaneous Devices Question Answer Entry Date Author Equipment On:;abdominal binder 01/07/2025 8:00 AM Fariha Pitts RN Abdominal Binder Remains in place 01/07/2025 8:0 0 PM Zachery Conn RN Abdominal Binder Care Skin assessed 01/07/2025 8:00 PM Zachery Conn RN * Safety Equipment at Bedside Question Answer Entry Date Author Standard Bedside Safety Ambu bags in hallway;Oxygen available and working;Suction available, setup and working 01/16/2025 12:00 PM Armida Parish RN Additional Bedside Safety Bed in locked and low position;Clutter free environment 01/16/2025 12:00 PM Armida Parish RN * Pain 4 Question Answer Entry Date Author Ravi LIZ Pain Rating 4 4 01/15/2025 8:25 AM Marshall Noriega * Pain 5 Question Answer Entry Date Author Ravi LIZ Pain Rating 5 6 01/15/2025 8:25 AM Marshall Noriega * Pain 6 Question Answer Entry Date Author Ravi LIZ Pain Rating 6 6 01/15/2025 8:25 AM Marshall Noriega * IBW/kg (Calculated) Male Answer Entry Date Author 82.24 01/02/2025 7:48 PM Allison Mix RN * IBW/kg (Calculated) Female Answer Entry Date Author 77.74 01/02/2025 7:48 PM Allison Mix RN * Consults Question Answer Entry Date Author Integrative Medicine Consult Needed No 01/02/2025 3:56 PM Jolene Vasquez RN Pastoral Care Consult Needed No 01/02/2025 3 :56 PM Jolene Vasquez RN Social Services Consult Needed No 01/02/2025 3:56 PM Jolene Vasquez RN * Therapy Consults Question Answer Entry Date Author PT Evaluation Needed 2 01/02/2025 3:56 PM E Jolene Ratliff RN OT Evaluation Needed 2 01/02/2025 3:56 PM Jolene Perez RN WIENER PACKER Evaluation Needed 2 01/02/2025 3:56 PM Jolene Vasquez RN * Assistive Devices Question Answer Entry Date Author Assistive Devices None 01/02/2025 3:56 PM Jolene Vasquez RN * NPO/Void Status Question Answer Entry Date Author Time of Last Liquid 97806 01/13/2025 3:33 PM Luis Hammond RN Time of Last Void 53771 2025 10:12 AM EST Imelda Lucas RN Date of Last Liquid 63557 01/13/2025 3:33 PM Luis Hammond RN Date of Last Solid 34607 01/13/2025 3:33 PM EST Luis Amaya RN Time of Last Solid 02784 2025 10:12 AM Imelda Simons, DEMETRIA * Provider Notification Question Answer Entry Date Author Response See orders 01/10/2025 8:15 AM EST Rosibel Delvalle Notification Time 01/10/2025 6:08 AM EST Anay Rodriguez RN * Alarm Limits Question Answer Entry Date Author HR Alarm Limit Low 50 01/06/2025 8:10 PM EST Isabel Shepherd, RN HR Alarm Limit High 120 01/06/2025 8:10 PM Isabel Staples, RN RR Alarm Limit Low 8 01/06/2025 8:10 PM EST Isabel Shepherd, RN RR Alarm Limit High 30 01/06/2025 8:10 PM Isabel Staples, RN Apnea Alarm Delay 20 01/06/2025 8:10 PM EST Isabel Shepherd, RN SpO2 Alarm Limit Low 90 01/06/2025 8:10 PM E Isabel Lovelace, RN SpO2 Alarm Limit High 100 01/06/2025 8:10 PM Isabel Guallpa, RN BP Systolic Alarm Limit Low 90 01/06/2025 8: 10 PM EST Isabel Shepherd, RN BP Systolic Alarm Limit High 170 01/06/2025 8 :10 PM EST Isabel Shepherd, RN BP Diastolic Alarm Limit Low 50 01/06/2025 8 :00 AM EST Galileo Abdi, RN BP Diastolic Alarm Limit High 90 01/06/2025 8:00 AM EST Galileo Abdi, RN BP Mean Alarm Limit Low 60 01/06/2025 8:10 P M Isabel Guallpa RN BP Mean Alarm Limit High 110 01/06/2025 8:10 PM Isabel Guallpa, DEMETRIA * Transfer of Nursing Care Question Answer Entry Date Author Nurse Report Given To Imelda AUGUSTIN 2025 10:20 AM Imelda Calvo RN Transferred Via Bed 2025 10:20 AM Imelda Barber RN Handoff Received From yellow sheet 2025 10:20 AM Imelda Calvo RN * End of Shift Review Question Answer Entry Date Author Shift Review Complete Yes 01/16/2025 8:00 AM Armida Parish RN Shift Report Received From Allison Espana RN 01/16/2025 8:0 0 AM Armida Parish RN Shift Report Given To Armida Oscar RN 01/16/2025 8:00 AM Armida Parish RN * Hourly Rounding Question Answer Entry Date Author Hourly Rounding Complete Per Guideline Yes 01/16/2025 3:00 PM Armida Parish RN * Patient Violence Risk Assessment Question Answer Entry Date Author History of Violence: In the past 12 hours has the PATIENT exhibited any of the following? None 01/16/2025 12:00 PM Armida Parish RN Potential for Violence: In the past 12 hours has the PATIENT exhibited any of the following? None 01/16/2025 12:00 PM Armida Parish RN Risk No identified risk 01/16/2025 12 :00 PM Armida Parish RN History of Violence: In the past 12 hours has a PARTNER IN CARE of the patient exhibited any of the following? None 01/16/2025 12:00 PM Armida Parish, RN * Chlorhexidine Screening Question Question Answer Entry Date Author Have you ever had a rash or burn develop after a hospital procedure and/or operation or been told you have an allergy or sensitivity to chlorhexidine or pink pre-surgical soap? No 01/13/2025 3:32 PM Kirk Ann, RN * Spiritual Assessment Question Answer Entry Date Author Support Systems/ Spiritual Resources Unknown 12/14 10:00 AM Marybeth Montanez * Outcomes Question Answer Entry Date Author Patient Outcomes TYLER 01/03/2025 10:00 AM Marybeth Montanez * Follow-Up Question Answer Entry Date Author Duration 10 minutes 01/03/2025 10:00 AM Marybeth Montanez Pastoral Care Comment Patient was in OR. Family was not present. Consulted with care team briefly. 01/03/2025 10:00 AM Marybeth Montanez Last Date of Pastoral Care Contact [id number] 01/03/2025 10:00 AM Marybeth Montanez * Mobility Question Answer Entry Date Author Ambulation Stand by;Independent 01/15/2025 8:00 PM Allison Hearn RN * Oxygen Therapy Question Answer Entry Date Author Oximetry Probe Site Changed No 01/13/2025 3: 51 PM Dayna Worthington RN * Restart Vitals Timer Answer Entry Date Author Yes 01/16/2025 12:02 PM EST Marlene Kimbrough [facility] * Neurological Question Answer Entry Date Author Neuro ([facility] 2025 1:12 PM Rodney Bain RN * Cardiac Question Answer Entry Date Author Cardiac ([facility]) [facility] 2025 1:12 PM Rodney Nowak RN * Gastrointestinal Question Answer Entry Date Author Gastrointestinal ([facility]) [facility] 2025 1:12 PM Rodney Bain RN * IBW/kg (Calculated) Answer Entry Date Author 82.24 01/02/2025 7:48 PM Allison Mix RN * STOP-Bang Questionnaire Question Answer Entry Date Author Do you snore loudly? 0 01/02/2025 3:56 PM Jolene Perez RN Do you often feel tired or fatigued after your sleep? 0 01/02/2025 3:56 PM Akilah Vasquez RN Has anyone ever observed you stop breathing in your sleep? 0 01/02/2025 3:56 PM Jung Vasquez RN Do you have or are you being treated for high blood pressure? 0 01/02/2025 3:56 PM Jolene Mueller pe, RN Is BMI greater than 35 kg/m2? 0=No 01/02/2025 3:56 PM Jolene Vasquez RN Age older than 50 years old? 0=No 01/02/2025 3 :56 PM Jolene Vasquez RN Is your neck circumference g reater than 17 inches (Male) or 16 inches (Female)? 0 01/02/2025 3:56 PM Jolene Vasquez RN Gender - Male 1=Yes 01/02/2025 3:56 PM Jolene Mueller pe, RN STOP-Bang Total Score 1 01/02/2025 3:56 PM Jolene Vasquez RN Recent BMI (Calculated) 29.9 01/02/2025 3:56 P M Jolene Vasquez RN * Date of PT Session Question Answer Entry Date Author Next PT Re-Assessment Date 21569 01/16/2025 11: 29 AM Luis Astorga PT Initials AH 01/16/2025 11:29 AM Luis Astorga Date of PT Session 43592 01/16/2025 11:29 AM Luis Burgos * HARK Concern Calculation Answer Entry Date Author 1 01/02/2025 12:41 PM EST Clarissa Kwon RN * Alcohol Use Concern Calculation Answer Entry Date Author 1 01/02/2025 12:41 PM EST Clarissa Kwon RN * Food Insecurity Concern Calculation Answer Entry Date Author 1 01/02/2025 12:41 PM EST AlisonrClarissa RN * Transportation Needs Concern Calculation Answer Entry Date Author 1 01/02/2025 12:41 PM Clarissa Kumar RN * Housing Stability Concern Calculation Answer Entry Date Author 1 01/02/2025 12:41 PM EST AlisonrClarissa RN * Utilities Concern Calculation Answer Entry Date Author 1 01/02/2025 12:41 PM EST Clarissa Kwon RN * Calculated C-SSRS Risk Score (Lifetime/Recent) Answer Entry Date Author No Risk Indicated 01/16/2025 12:00 PM Armida Parish RN * Skip to questions 9-10? Answer Entry Date Author 1 01/02/2025 12:41 PM Clarissa Kumar RN * [place] Coma Scale Question Answer Entry Date Author Best Eye Response Spontaneous 01/16/2025 12:00 PM Armida Parish RN Best Verbal Response Oriented 01/16/2025 12:00 PM Armida Parish RN Best Motor Response Follows commands 01/16/2025 12:00 PM Armida Parish RN [place] Coma Scale Score 15 01/16/2025 12:00 PM Armida Parish RN * Restart Pain Assessment Timer Answer Entry Date Author Yes 01/16/2025 8:00 AM Nimisha Parish ma, RN * SBIRT CAGE Screen Question Answer Entry Date Author Have you ever felt you shoul d CUT down on your drinking? 1 01/02/2025 3:56 PM Job Vasquez RN Have you been ANNOYED by peo ple criticizing your drinking? 1 01/02/2025 3:56 PM Akilah Vasquez RN Have you felt GUILTY about y our drinking? 1 01/02/2025 3:56 PM Jolene Vasquez RN Have you had a drink first t edgardo in the morning ([employer]) to steady your nerves or to get rid of a hangover? 1 01/02/2025 3:56 PM Jolene Vasquez RN CAGE Questionnaire Score 4 01/02/2025 3:56 PM Jolene Vasquez RN Alcohol Screen ASN 01/02/2025 3:56 PM Jolene Yi RN * Weight in (lb) to have BMI = 25 Answer Entry Date Author 194.4 01/02/2025 7:48 PM Allison Mix RN * BMI (Calculated) Answer Entry Date Author 27.6 01/16/2025 6:10 AM Elver Brandt CNA * Weight Change Since Preop Answer Entry Date Author 97.4 01/16/2025 6:10 AM Elver Brandt CNA * Initial Excess Weight Answer Entry Date Author -86.23 01/02/2025 7:48 PM Allison Mix RN * IBW in kg (Bariatric) Answer Entry Date Author 86.23 01/02/2025 7:48 PM Allison Mix RN * IBW in lb (Bariatric) Answer Entry Date Author 190.1 01/02/2025 7:48 PM Allison Mix RN * Weight Change Since Last Visit Answer Entry Date Author 1.6 01/16/2025 6:10 AM EST Medel, Dynasty K, [facility] * Difference in Weight Since Last Visit Answer Entry Date Author 1.6 01/16/2025 6:10 AM EST Medel, Dynasty K, [facility] * Pain Type Answer Entry Date Author Acute pain 01/15/2025 6:33 AM Mirtha Bright RN * Anthropometrics Question Answer Entry Date Author Weight Change 1.67 01/16/2025 6:10 AM EST Thor nton, Dynasty K, [facility] * Temp (in Celsius) for [employer] [place] IV Answer Entry Date Author 36.6 01/16/2025 12:02 PM EST Marlene Kimbrough CNA * Pain Assessment Question Answer Entry Date Author Pain Orientation Mid 01/14/2025 6:27 AM Mirtha Bright RN Pain Descriptors Aching;Discomfort 01/14/2025 6: 27 AM Mirtha Bright RN Pain Onset Ongoing 01/14/2025 6:27 AM Mirtha Bright RN Pain Frequency Constant/continuous 01/14/2025 6 :27 AM Mirtha Bright RN Patient's Stated Pain Goal No pain 01/15/2025 4:00 AM Mirtha Bright RN Effect of Pain on Daily Activities adls 01/11/2025 8:22 AM EST Rosibel Delvalle Patient is asleep Yes, assume pain is decreased 01/10/2025 11:26 PM EST Marvin Bartlett RN Clinical Progression Not changed 01/15/2025 8:25 AM EST Marshall Wells Pain Score 0 01/16/2025 8:00 AM EST Armida Oscar RN Unable to Self-Report Pain Reason Patient chemically sedated 01/03/2025 4:00 PM EST Elyssa Augustin Pain Assessment 0-10 (Adult DVPRS/Pe ds 0-10) 01/16/2025 8:00 AM Armida Parish RN * Reflexes Question Answer Entry Date Author Cough Reflex Present 01/16/2025 12:00 PM Armida Hernandez RN Gag Present 01/16/2025 12:00 PM EST Chintan s, Armida S, RN * Time-Out Question Answer Entry Date Author Pre-Meds Ordered/Given Not applicable 5:00 AM Daylin Jones RN Name of Provider Performing Procedure IreitmnRNirmala 2025 5:00 AM Daylin Jones RN Correct Patient Yes 2025 5:00 AM Daylin Jones RN Correct Site Yes 2025 5:00 AM Daylin Jones RN Site Marked Not applicable 2025 5:00 AM Daylin Jones RN Correct Side Not applicable 2025 5:00 AM Daylin Jones RN Correct Patient Position Yes 025 5:00 AM Daylin Jones RN What Procedure? Central/PICC line removal 2025 5:00 AM Daylin Jones RN Correct Procedure Yes 2025 5:0 0 AM Daylin Jones RN Antibiotics Ordered/Given Not applicable 2024 5:00 AM Daylin Jones RN Consents Verified? No 2025 5: 00 AM Daylin Jones RN Rad Studies Available? No 5 5:00 AM Daylin Jones RN Lab Results Available? No 5 5:00 AM Daylin Jones RN Safety Precautions Reviewed? Yes 2025 5:00 AM Daylin Jones RN * Tremors Question Answer Entry Date Author Tremor Location Hands 01/16/2025 12:00 PM Armida Pinon RN Tremor Severity Fine 01/16/2025 12:00 PM Armida Pinon RN Tremor Duration with movement 2025 8:00 PM EST Andreina Schaffer RN * Nutrition Question Answer Entry Date Author Diet Supplements Boost Glucose Control 01/14/2025 8:00 AM EST Bree Mcfarland RN Diet Type Regular;Low potassium;Other (Comment) 01/16/2025 12:00 PM EST Armida Oscar, RN Feeding Able to feed self 01/16/2025 12: 00 PM Armida Parish RN Appetite Fair 01/16/2025 12:00 PM Armida Parish RN * 4-Eyes Skin Assessment Question Answer Entry Date Author 4 Eyes Skin Assessment Completed Yes 01/16/20 8:00 PM Allison Mix RN Manual Dual Sign Off 2nd DEMETRIA Hayes RN 01/15/2025 8: 00 PM Allison Mix RN * Alarms Question Answer Entry Date Author High Respiratory Rate 40 01/03/2025 3:01 PM Blaine Sinha Low Respiratory Rate 5 01/03/2025 3:01 PM Blaine Lorenz * Adult Low Range Vt 6mL/kg Answer Entry Date Author 493.44 01/02/2025 7:48 PM Allison Mix RN * Adult Moderate Range Vt 8mL/kg Answer Entry Date Author 657.92 01/02/2025 7:48 PM Allison Mix RN * Adult High Range Vt 10mL/kg Answer Entry Date Author 822.4 01/02/2025 7:48 PM Allison Mix RN * Vent Information Question Answer Entry Date Author Vent ID [id number] 01/03/2025 3:01 PM Blaine Sinha Invasive Vent Status (ETT, Trach Only) Discontinued 01/03/2025 5:19 PM Linden Bowen Patient Category Range Adult 3:01 PM Blaine Sinha $ Vent Charge - Initial Yes 01/04/20 3:01 PM Blaine Sinha Invasive Ventilator Initiate d (ETT/Trach Only) Yes 01/03/2025 3:01 PM Blaine Sinha Invasive Ventilator Discontinued (ETT/Trach Only) Yes 01/03/2025 5:19 PM Linden Bowen O2 Delivery Method Nasal cannula 01/05/2025 4: 00 PM EST Leo Aguiar RN Vent Device Type Servo U 01/03/2025 3:01 PM Blaine Sinha * Norepinephrine Drip Question Answer Entry Date Author Volume (mL) Norepinephrine 0 01/11/2025 6:0 7 AM EST Marvin Bartlett RN * Respiratory Interventions Question Answer Entry Date Author Respiratory Interventions Cough and deep breathing 01/16/2025 12:00 PM Armida Parish RN * Cough and Deep Breathe Question Answer Entry Date Author Cough And Deep Breathing done independently per patient 01/16/2025 12:00 PM Armida Parish RN * Incentive Spirometry Question Answer Entry Date Author Patient Tolerance (IS) fair 8:00 PM Shaka Gillespie RN Administration (IS) previous patient education reinforced 01/07/2025 4:00 PM Fariha Pitts RN Level Incentive Spirometer (mL) 1500 01/04/2025 8:00 PM Shaka Gillespie RN Incentive Spirometer Predicted Level (mL) 500 01/04/2025 8:00 PM Shaka Gillespie RN Number of Repetitions (IS) 3 01/04 8:00 PM Shaka Gillespie RN * Patient Belongings at Bedside Question Answer Entry Date Author Clothing Pants;Shirt;Footwear ;S ocks;Underpants 01/02/2025 3:56 PM Jolene Vasquez RN Belongings at Bedside None 01/02/2025 3:56 PM Jolene Vasquez RN * Patient Belongings Sent to Safe/Security Question Answer Entry Date Author Belongings Sent to Safe/Security None 01/03/20 25 3:56 PM Jolene Vasquez RN * Genitourinary Additional Assessments Question Answer Entry Date Author Genitourinary Additional Assessments No 06/2024 12:00 PM Armida Parish RN * Integumentary Question Answer Entry Date Author Skin Color Appropriate for ethnicity 01/16/2025 12:00 PM Armida Parish RN Skin Condition/Temp Warm;Dry 01/16/2025 1 2:00 PM Armida Parish RN Skin Integrity Bruising;Other (Comment) 12:00 PM Armida Parish RN Skin Turgor Non-tenting 01/16/2025 12:00 PM Armida Parish RN Skin Tone Light 01/16/2025 12:00 PM Armida Parish RN Bruising Characteristics Scattered 12:00 PM Armida Parish RN Integumentary (WDL) X 01/16/2025 1 2:00 PM Armida Parish RN * Patient Medications Question Answer Entry Date Author Medications brought by patient? No 3:56 PM Jolene Vasquez RN * Patient Belongings Sent Home Question Answer Entry Date Author Belongings Sent Home None 01/16/2025 3:44 PM Armida Quiñones RN * Score Answer Entry Date Author 38.11 01/16/2025 5:32 PM EST Cruz Velez * Confusion Assessment Method (CAM) Question Answer Entry Date Author Acute Onset and Fluctuating Course (1A) No 01/16/2025 12:00 PM Armida Parish RN Acute Onset and Fluctuating Course (1B) No 01/16/2025 12:00 PM Armida Parish RN Inattention (2) No 01/16/2025 12:00 PM Armida Parish RN Disorganized Thinking (3) No 2024 12:00 PM Armida Parish RN Rate Patient's Level of Consciousness (4) Alert (Normal), No 01/16/2025 12:00 PM Armida Parish RN Delirium Present No 01/16/2025 12:0 0 PM Armida Parish RN * Confusion Assessment Method-ICU (CAM-ICU/PCAM-ICU) Question Answer Entry Date Author Feature 1: Acute Onset or Fl uctuating Course Negative 01/13/2025 12:51 PM EST Armida Garsia * Feature 3: Altered Level of Consciousness Answer Entry Date Author Negative 01/16/2025 12:00 PM Eulogio Parish, DEMETRIA * Overall CAM-ICU/PCAM-ICU Answer Entry Date Author Negative 01/13/2025 12:51 PM Armida Holcomb * Critical-Care Pain Observation Tool Question Answer Entry Date Author Target Pain Score Routine (0-2) 01/03/2025 4:00 PM EST Charli Elyssa Facial Expression 0 01/03/2025 4:00 PM EST CharliBladein Body Movements 0 01/03/2025 4:[address], Elyssa Complicance with the Ventila tor (Intubated Patients) 0 01/03/2025 4:00 PM EST Elyssa Augustin Muscle Tension 0 01/03/2025 4:00 PM EST Elyssa Cuevas Critical-Care Pain Observati on Score 0 01/03/2025 4:00 PM EST Elyssa Augustin * Sedation Scales Question Answer Entry Date Author [place] Scale (RS): Score 2 01/16/2025 12:00 PM Armida Parish RN Sedation Scale Used [place] Agitation Sedation Scale 01/16/2025 12:00 PM Armida Parish RN RASS 0 01/16/2025 12:00 PM Armida Parish RN [place] Opioid-Induced Sedation Scale (POSS) 1 01/16/2025 12:00 PM Armida Parish RN * Urine Output/Assessment Question Answer Entry Date Author Urine 100 01/15/2025 6:33 AM Mirtha Bright RN Urine Color Unable to assess 01/16/2025 5:15 AM Allison Mix RN Urine Appearance Unable to assess 01/16/2025 5:1 5 AM Allison Mix RN Urine Odor Unable to assess 01/16/2025 5:15 AM Allison Mix RN Unmeasured Urine Occurrence 1 01/16/2025 5:15 AM Allison Mix RN Urine Amount Unable to assess 01/16/2025 5:15 AM Allison Mix RN * Stool Output/Assessment Question Answer Entry Date Author Unmeasured Stool Occurrence (hourly total) 1 01/13/2025 6:00 AM Candie Ireland RN Stool Color Brown 01/13/2025 6:00 AM Andreina Aguillon RN Stool Amount Small 01/13/2025 6:00 AM Andreina Aguillon RN Stool Appearance Soft 01/13/2025 6:00 AM Andreina Berumen RN Bowel Incontinence No 01/16/2025 12:00 PM Armida Flynn RN [place] Stool Assessment [place] 01/13/2025 6:00 AM Andreina Ireland RN * Fall Risk Calculated Score Answer Entry Date Author Ricardo Olsen 01/16/2025 12:00 PM Eulogio Parish RN * $ Administration Charge Answer Entry Date Author Unit complete 01/05/2025 4:29 AM Shaka Vo RN * Patient Specific Goals Question Answer Entry Date Author Patient/Family-Specific Goals (Include Timeframe) Patient will remain free from harm this shift 01/16/2025 8:00 AM Armida Parish RN Individualized Care Needs Safety 2024 8:00 AM Armida Parish RN Anxieties, Fears or Concerns None 06/2024 8:00 AM Armida Pairsh RN * Able to Complete Psychiatric Screening Question Answer Entry Date Author Were you able to complete al l the behavioral health screenings? Yes 01/02/2025 3:56 PM Jolene Vasquez RN * Patient Strengths/Barriers Question Answer Entry Date Author Strengths (Must Choose Two) Stable housing;Support from family 01/02/2025 3:56 PM Jolene Vasquez RN * Delirium Assessment Question Answer Entry Date Author Delirium Prevention & Management Yes 01/16/2025 12:00 PM Armida Parish RN Delirium Prevention & Management: Early Mobility Ambulate to extent of patient's ability;Up to chair for meals;Out of room if possible;Educate patient and family about the benfits of early mobility in the hospital 01/16/2025 12:00 PM Armida Parish RN Delirium Prevention & Management: Cognitive Engagement Familiar objects from home provided;Familiar social contact provided;Reorienting communication;Emotional support provided;Optimize pain and other medication management;Environmental consistency promoted;Delirium prevention education provided to patient and family 01/16/2025 12:00 PM Armida Parish RN Delirium Prevention & Management: Optimize Sleep/Wake Cycles Calming techniques provided;Natural light during the day 01/16/2025 12:00 PM Armida Parish RN Delirium Scale Used Confusion Assessment Method 01/16/2025 12:00 PM Armida Parish RN * Follow Up Question Answer Entry Date Author [place] [address] 01/16/2025 4:[address] * Deterioration Index Score Question Answer Entry Date Author Deterioration Index Score 31.95 01/16/2025 5:15 PM GISELE Baum, Treq * Unplanned Readmission Scores Question Answer Entry Date Author Unplanned Readmission Score 38.09 01/16/2025 4: 00 PM EST Tre Baumq * F = Family/Partner in Care Engagement and Empowerment Question Answer Entry Date Author How did you engage the family/partner in care? Invited to help deliver patient care 01/06/2025 8:10 PM EST Isabel Shepherd RN How did the family/partner in care participate? Assisted in plan of care 01/06/2025 8:10 PM EST Isabel Shepherd RN * PRN Medication Given Reason Answer Entry Date Author Moderate/Severe Pain > or 01/11/2025 6:45 PM EST Rosibel Delvalle * Malnutrition Screening Tool (MST) Question Answer Entry Date Author Have you recently lost weigh t without trying? 0 01/02/2025 3:56 PM Jolene Vasquez RN Have you been eating poorly because of a decreased appetite? 0 01/02/2025 3:56 PM EST Jolene Baird pe, RN * Weight Loss Score Answer Entry Date Author 0 01/02/2025 3:56 PM Bri Vasquez RN * Malnutrition Score Answer Entry Date Author 0 01/02/2025 3:56 PM Bri Vasquez RN * Discharge Medication Bedside Delivery Question Answer Entry Date Author Meds to Beds Complete? Yes 5:12 PM Jorge Macias CPhT Current Status Prescriptions Delive red - M2B Service Complete 01/16/2025 5:12 PM Jorge Macias CPhT Is the patient interested in Medication Bedside Delivery at Discharge? Yes, interested 01/16/2025 9:54 AM EST Imelda Valentin, PharmD * [place] Coma Scale Numeric Answer Entry Date Author 15 01/16/2025 12:00 PM EST Eulogio Oscar, RN * Vent Settings (Invasive or Non Invasive) Question Answer Entry Date Author Resp Rate (Set) 16 01/03/2025 3:01 PM EST Blaine Golden Resp Rate Observed 16 01/03/2025 3:01 PM EST Blaine Alexis Vt (Set, mL) 500 01/03/2025 3:01 PM EST Messe r, Blaine Vt Exh (ml) 537 01/03/2025 3:01 PM EST Lauryn rBlaine PAP Observed (cm H2O) 18 01/03/2025 3:01 PM EST Blaine Alexis Minute Ventilation Set (L/min) 8 01/03/2025 3:01 PM EST Blaine Alexis PEEP/CPAP Set 5 01/03/2025 3:01 PM EST Blaine Pang MAP (cm H2O) 9 01/03/2025 3:01 PM EST Lauryn rBlaine Insp Time (sec) 0.9 01/03/2025 3:01 PM EST Me sserBlaine Insp Rise Time (%) 15 01/03/2025 3:01 PM EST Blaine Alexis I:E Ratio 1:3.13 01/03/2025 3:01 PM EST Lauryn rBlaine Minute Ventilation Total 9.2 01/03/2025 3:01 PM EST Blaine Alexis Heater Water Checked 01/03/2025 3:01 PM EST Lauryn rBlaine Circuit Compliance On/Off On 01/03/2025 3:01 PM EST Blaine Alexis Trigger Sensitivity Flow (L/min) 1.01 01/04/20 25 3:01 PM EST Blaine Alexis Humidification Heat 01/03/2025 3:01 PM EST Lucille serBlaine Heater Temperature 98.6 01/03/2025 3:01 PM EST Blaine Alexis * Communication Support Strategies Answer Entry Date Author active listening utilized 2025 12:46 AM Daylin Gil, DEMETRIA * Heel protectors task - custom formula Answer Entry Date Author 1 01/09/2025 6:00 PM EST Bree Mcfarland, RN * Elevate heels task - custom formula Answer Entry Date Author 1 01/16/2025 12:00 PM EST Eulogio Oscar, RN * Vitals Timer Question Answer Entry Date Author Restart Vitals Timer Yes 01/16/2025 12:02 PM EST Shonda Kimbrough CNA * Vitals Question Answer Entry Date Author Cardiac Rhythm NSR 01/13/2025 4:30 PM EST Manjula Stanley, DEMETRIA * Respiratory Assessment Question Answer Entry Date Author Respiratory (WDL) [facility] 2025 1:12 PM Rodney Bain, DEMETRIA * Integumentary Question Answer Entry Date Author Integumentary ([facility]) [facility] 2025 1:12 PM Rodney Win, RN * Modified Mickey Question Answer Entry Date Author Activity 2 01/13/2025 4:30 PM Nirmala James RN Respiration 2 01/13/2025 4:30 PM Nirmala James RN Hemodynamic Stability 2 01/13/2025 4:30 PM Manjula James RN Consciousness 2 01/13/2025 4:30 PM Manjula James RN Oxygen Saturation 2 01/13/2025 4:30 PM Manjula James RN Modified Mickey Score 14 01/13/2025 4:30 PM Manjula James RN Pain 2 01/13/2025 4:30 PM Nirmala James RN Emetic Symptoms 2 01/13/2025 4:30 PM Manjula James RN * Postprocedure Normothermia Interventions Question Answer Entry Date Author [place] Applied No 2025 1:09 PM Rodney Oropeza, DEMETRIA Is the patient normothermic? Yes 2025 1 :09 PM Rodney Bain, DEMETRIA * Hourly Rounding Question Answer Entry Date Author Call Light Call light present a nd within reach 01/07/2025 8:00 PM Zachery Conn RN Rest/ Sleep Awake 01/07/2025 8:00 PM Zachery Conn RN * Non- Lethal Alarms Question Answer Entry Date Author Non-Lethal/Regular Alarms Other (Comment) 2024 7:41 PM Kevin Upton CNA Reason(s) Telemetry is Off Stand-by check 01/07/2025 12:07 PM Alisha Mendes * Communication Question Answer Entry Date Author Floor Staff Notification Method Secure chat 01/07/2025 7:41 PM Kevin Upton CNA Monitoring staff Called Floo r Staff Nurse 01/07/2025 7:41 PM Kevin Upton CNA * Danyel/Cubbin Scale Question Answer Entry Date Author Age (years) 3 01/06/2025 8:10 PM Isabel Mendes RN Hemodynamics 4 01/06/2025 8:10 PM Isabel Mendes RN Weight/Tissue Viability 3 01/06/2025 8:10 P M Isabel Guallpa RN Respiration 4 01/06/2025 8:10 PM Isabel Mendes RN Past Medical History 2 01/06/2025 8:10 PM Isabel Meier RN Oxygen Requirments 4 01/06/2025 8:10 PM Isabel Guallpa RN General Skin Condition 3 01/06/2025 8:10 PM Isabel Guallpa RN Nutrition 4 01/06/2025 8:10 PM Isabel Mendes RN Medical Condition 4 01/06/2025 8:10 PM Isabel Guallpa RN Incontinence 4 01/06/2025 8:10 PM Isabel Mendes RN Mobility 4 01/06/2025 8:10 PM Isabel Mendes RN Hygiene 3 01/06/2025 8:10 PM Isabel Mendes RN Deduction if patient has bee n in surgery or transported to CT, MRI, or HBOT during last 48 hours 0 01/06/2025 8:10 PM Isabel Guallpa RN Deduction if patient has required blood or clotting factors during last 24 hours 0 01/06/2025 8:10 PM Isabel Guallpa RN Deduction if patient has hypothermia of 35 C or under (core temp) 0 01/06/2025 8:10 PM Karan Guallpa RN Danyel/Dustin Pressure Risk Score 42 01/06/2025 8:10 PM Isabel Guallpa RN * Elopement Risk Screen Question Answer Entry Date Author Does the patient exhibit any of the following behaviors? No 01/16/2025 12:00 PM Armida Parish RN Does the patient have a cour t ordered legal guardian? No 01/16/2025 12:00 PM Armida Parish RN * Participants in Care Question Answer Entry Date Author Supervisor Photocomposition N/A 01/13/2025 11:06 AM Diego Kimball * Cognition Question Answer Entry Date Author Orientation Level Oriented X4 01/05/2025 9:02 AM Armida Jean Baptiste * C-SSRS (Frequent Screener) Question Answer Entry Date Author Is patient awake, alert, and able/willing to answer questions appropriately? Yes 01/16/2025 12:00 PM Armida Parish R N 1. Wish to be (Past 1 Month) No 025 12:00 PM Armida Parish, DEMETRIA 2. Non-Specific Active Suici joceline Thoughts (Past 1 Month) No 01/16/2025 12:00 PM Armida Parish, DEMETRIA 6. Suicidal Behavior (Lifetime) No 12:00 PM Armida Parish, RN * Deferred Question Answer Entry Date Author Unable to assess Yes 01/02/2025 3:56 PM Jolene Moreno RN * Discharge Planning Continued Question Answer Entry Date Author Transportation Home at Discharge Family/Friend will Provide 01/16/2025 1:09 PM Gabriela Aly RN * [facility] 6-Clicks Mobility Assessment Question Answer Entry Date Author Difficulty patient has turni ng over in bed (including adjusting bedclothes, sheets, and blankets)? 3 01/13/2025 11:06 AM Diego Kate Difficulty patient has sitti ng down on and standing up from a chair with arms (wheelchair, bedside commode, etc.)? 3 01/13/2025 11:06 AM Dann Oates Difficulty patient has movin g from lying on back to sitting on the side of the bed? 3 01/13/2025 11:06 AM Nazia Oates How much help does the patie nt need moving to and from a bed to a chair (including a wheelchair)? 3 01/13/2025 11:06 AM Diego Kimball How much help does the patie nt need to walk in hospital room? 3 01/13/2025 11:06 AM EST Hoski ns, Diego F How much help does the patie nt need climbing 3-5 steps with a railing? 3 01/13/2025 11:06 AM Nazia Oates [facility] 6-Clicks Mobility Asse ssment Total 18 01/13/2025 11:06 AM Nazia Oates documented in this encounter Discharge Instructions * [...] Take immunosuppression as orderd, including steroid taper. {TXPimmunomeds:24467} Nutrition: - Please drink your boost shakes [...] any ointments or creams at this time. {txpincisionclosure:22296} Bring to your clinic appointments: - please [...] your RN Coordinator, the emergency number is [phone]. This is an answering service, you will ask to speak to the on- call liver life skills coordinator . - Call for fever of 100.5F [...] Appointments please call our Transplant Surgery Clinic [phone]. If there are questions or concerns after discharge from the hospital after hours, weekends, and holidays please call [phone] to reach the RN Coordinator national coverage specialist documented in this encounter Medications at Time [...] 2 01/06/2025 ergocalciferol (Vitamin D-2) 1.25 MG (97608 UT) capsule Take 1 capsule by mouth 1 time per week. Fridays 4 capsule 1 01/16/2025 methocarbamol (Robaxin) 500 MG tablet Take 1 [...] chew, or split. 30 tablet 2 01/16/2025 sulfamethoxazole- trimethoprim (Bactrim) 400-80 MG tabletIndications :Liver replaced by transplant Take 1 tablet by mouth daily. 30 tablet 5 01/06/2025 ursodiol (Actigall) 300 MG capsule Take 2 capsules by mouth 2 times a day. 120 capsule 5 01/16/2025 valGANciclovir (Valcyte) 450 MG tabletIndications :Liver replaced by transplant Take 1 tablet by mouth daily. Do not crush or chew. 30 tablet 2 01/05/2025 buPROPion SR (Wellbutrin SR) 150 MG 12 hr tabletIndications :Tobacco use disorder Take 1 tablet by mouth daily for 3 days, THEN 1 tablet 2 times a day. Do not crush, chew, or split. 123 tablet 1 11/21/2024 5 escitalopram (Lexapro) 10 MG tablet Take 1 tablet by mouth daily. 30 tablet 3 12/30/2024 5 ferrous sulfate 324 MG tablet delayed-release Take 1 tablet by mouth daily with breakfast. Do not crush, chew, or split. 30 tablet 12/21/2024 5 fluconazole (Diflucan) 200 MG tabletIndications :Liver replaced by transplant Take 1 tablet by mouth daily for 17 days. 17 tablet 01/16/2025 5 levoFLOXacin (Levaquin) 750 MG tabletIndications :Liver replaced by transplant Take 1 tablet by mouth daily for 2 doses. 2 tablet 01/16/2025 5 Misc. Devices (Pill Box 7 Day) misc Pill box 1 each 01/06/2025 5 mycophenolate (CellCept) 250 MG capsule Take 3 capsules by mouth 2 times a day. Z94.4. Txp Date: 01/03/25 180 capsule 2 01/15/2025 5 predniSONE (Deltasone) 10 MG tablet Take 6 tablets by mouth daily for 5 days, THEN 5 tablets daily for 5 days, THEN 4 tablets daily for 5 days, THEN 3 tablets daily for 5 days, THEN 2 tablets daily for 5 days, THEN 1 tablet daily. 130 tablet 01/16/2025 5 senna-docusate sodium (Senokot-S) 8.6-50 MG tablet Take 1 tablet by mouth 2 times a day as needed for constipation. 60 tablet 01/06/2025 5 tacrolimus 1 MG PO capsuleIndication s:Liver Transplant Status Take 2 capsules by mouth every morning AND 1 capsule every evening. Z94.4. transplant date 01/03/25. 90 capsule 2 01/16/2025 5 traZODone (Desyrel) 50 MG tabletIndications :Insomnia, unspecified type Take 1 tablet by mouth nightly. 90 tablet 1 12/30/2024 5 documented as of this encounter Miscellaneous Notes * Consults - Mela Sterling, RD - 01/16/2025 4:53 PM EST Adult Nutrition Evaluation Note Orly Tay 45 y.o. male CSN: [id number] Room/Bed 213/213A Nutrition evaluation type: follow-up Reason [...] drinking Boost between meals. Boost Rx to [facility] for outpatient use. w/ questions from [...] (Calculated): 27.56 Weight Evaluation: Overweight (BMI 25-29.9) Aurora Body Weight (kg): 86.4 Percent [place] Body Weight: 112 Adjusted Body Weight (kg): [...] oz) Estimated Needs: Kcal/ K-35 Kcal Provided: 6536-8348 Kcal Needs Based On: Current weight Gm [...] Education Provided: Yes (Post-transplant) Pertinent home medications: Restorationist needs: Nutrition Focused Physical Exam: Physical exam [...] PM EST Case Management Discharge Note Orly Tay 45 y.o. male CSN: [id number] Admission: 01/02/2025 9:05 AM Primary Problem: Decompensation of cirrhosis of liver (CMS/HCC) Primary Supervisor Trust Accounts: Assistance Available at Discharge: Current Outpatient/Agency/Support Group: clinic(s) Availability of Care Givers (#Hours): 24 hours Family/Supervisor Trust Accounts(s) Willingness Assessed to care for patient at home: Yes Family/Supervisor Trust Accounts(s) Readiness Assessed to care for patient at [...] TBD [facility] ENDO 2 PAV S Endoscopy [phone] [address] [facility] [address] PT/OT recs: home with 24-hour assistance, outpatient PT/OT, rolling walker Pt reports he will have the assistance of his spouse at home PT to be provided with a script for outpatient PT/OT on day of discharge. Referral for rolling walker sent to [facility], walker delivered to bedside. Transportation: Pt states she will provide transportation home. CM discussed pt discharge plan with care team and with patient. Pt verbalized understanding. No additional CM discharge needs Identified or communicated. Gabriela Kinney RN * Progress Notes - Ginny Sutton, PharmD - 01/16/2025 10:58 AM EST TRANSPLANT PHARMACIST POST-TRANSPLANT DISCHARGE NOTE - INDEX ADMISSION Patient name: Orly Tay Discharge date: 01/16/25 Discharge location: Home : [...] patient: Lower blood pressure ergocalciferol 1.25 MG (89678 UT) capsule Take 1 capsule by mouth [...] Medications: Will plan for patient to utilize [facility] to obtain discharge medications at time of discharge from [facility]. Prescriptions to be provided by [facility] providers. The transplant team will assist [...] ; expressed desire to utilize [facility] post-operatively. Ginny Sutton, [place] Transplant Clinical Pharmacist * Care Plan - Armida Oscar RN - 01/16/2025 9:36 AM EST [...] EST Physical Therapy Treatment Patient Name: Orly Tay Today's Date: 01/16/2025 PT Discharge Recommendations: Outpatient [...] Mobility Exam: Supine to Sit Level of Weld: Stand-by assist Physical/Nonphysical Assist: Verbal Cues Bed Mobility Exam: Sit to Supine Level of Weld: Stand-by assist Physical/Nonphysical Assist: Verbal Cues Transfers Transfer Exam: Sit to stand Level of Weld: Independent Transfer Exam: Stand to Sit Level of Weld: Independent Ambulation Device: Rolling walker Assistance: Standby [...] Load: No Diplopia: No Falls: No Objective OFFSET PRESS OPERATOR HELPER Screen Cervical Spine ROM: not limited Smooth Pursuit: intact Saccades: intact Spontaneous Nystagmus: No Gaze-Evoked Nystagmus: No Vestibular Occular Reflex Testing VOR Slow: intact Head Thrust: negative bilaterally Gaze Stability: intact Convergence/divergence (near point convergence): intact Positional Testing Left Brewster-Hallpike: negative with no provocation of symptoms or nystagmus. Right Brewster-Hallpike: negative with no provocation of symptoms or [...] from staff/family. 01/05/25 2 weeks Written by Luis Elizalde on 01/16/25 at 1:33 PM. * [...] RADIOLOGY History of Present Illness: Mr. Orly Tay is a 44 y.o. year old male with a PMH of decompensated alcohol related cirrhosis s/p OLT, ascites, HE, SBP, depression, anxiety, GERD, and HTN whopresents to [facility] on 01/02 for liver transplant. Hospital [...] allmeds through ; expressed desire to utilize [facility] post-operatively. Biliary reconstruction: [id number] Stent: Yes Induction Immunosuppression: Methylprednisolone 250 mg [...] patient: Lower blood pressure ergocalciferol 1.25 MG (33824 UT) capsule Take 1 capsule by mouth [...] Prednisone 60 mg daily followed by taper terminal gauger antibiotics: Yes, Levaquin x1 week for cholangitis [...] * Hospital Course - Félix Simmons APRN, DNP - 01/15/2025 12:28 PM EST Orly Tay is a 45yo male with a PMH of decompensated alcohol related cirrhosis, ascites, HE, SBP, depression, anxiety, GERD, and HTN who presented to [facility] on 01/02 for orthotopic liver transplant which he underwent on 01/[address] Beckford. * Progress Notes - Saniya Bond APRN - 01/15/2025 12:28 PM EST Physical Medicine [...] wheezing GI: abd soft, NTTP : no cruz Skin: warm, dry Heme/lymph/immune: scattered bruising Psychiatric: good judgement, good insight MSK: AROM throughout Neurological: awake and alert, participating in conversation, speech fluent Follow up appointments: Future Appointments Date Time Provider Department Center 01/16/2025 6:[address] [facility] 01/16/2025 8:00 AM Nfahoobjqd-Thvqu-Zotlxvx-Paul [facility] 03/06/2025 To Be Determined GSH ENDO 2 ENDOGSHS GSH Mobility Orders Mobility Protocol: General - Mobility Guidelines Extremity Precautions: No Extremity Precautions Other mobility precautions: No other precautions required ASSESSMENT/PLAN: Orly Tay is a 44 y.o. male w/PMH of [...] signs, if he does drop, recommend tubi econometrics professor prior to OOB. If orthostatic vitals signs are okay, consider vestibular evaluation with therapy prior to discharge *have reached out to therapists regarding recommendations Thank you for allowing us to participate in the care of your patient. We will continue to follow. Please page [phone] with any questions, or resident on-call if [...] EST Case Management Adult Progress Note Orly Tay 45 y.o. male CSN: [id number] Admission: 01/02/2025 9:05 AM Primary Problem: Decompensation [...] Phone Address 01/16/2025 6:45 AM TRANSPLANT LAB [facility] Transplant [place] Arrive at: Transplant Center [phone] [facility] [address] 01/16/2025 8:00 AM Wgpyyeqjnx-Ncklt-Cwpucth-Paul [facility] Transplant [place] Arrive at: Transplant Center [phone] [address] [facility] [address] 03/06/2025 TBD GSH ENDO 2 PAV S Endoscopy [phone] [address] [facility] [address] PT/OT recs: home with 24-hour assistance, outpatient PT/OT, rolling walker Pt reports he will have the assistance of his spouse at home PT to be provided with a script for outpatient PT/OT on day of discharge. Referral for rolling walker sent to [facility], walker delivered to bedside. Transportation: Pt states she will provide transportation home. CM will continue to follow pt plan of care and discharge needs. Gabriela Kinney RN * Progress Notes - Laura Muñiz LCSW - 01/15/2025 12:04 PM EST Transplant Social Work Discharge - Post-Transplant Identifying Information: Patient Name: Orly Tay Date of : 1980 Social Support System: The primary caregiver is , Patricia, who is committed and involved Local Housing Needs and Transportation: Patient and caregiver require temporary housing near the hospital post- discharge: No. Plan in placeto stay at: patient's home in [place]. Transportation to follow-up appointments will be provided by: . Financial Status: Reported household income estimated at below 300% FPL. Monthly income about $750. Patient reports he has been awarded SSDI, however, final amounts and when first check will arrive is undetermined. Financial concerns noted regarding: transportation. [facility] has approved $100 gas card for transportation.Will be provided in clinic when card available. Patient/ report understanding and appreciative of assistance. Discharge Plan: Per PT/OT recommendations, patient is being discharged home with assistance Clinical Summary: Txp SW is actively collaborating with the multidisciplinary transplant team to support ongoing psychosocial needs. Per team, Txp SW is aware that the patient is recovering [...] patient once it arrives. Laura Muñiz LCSW, [facility] Transplant Lumber Stacker Operator Liver team * Consults - Yari Reilly RD - 01/15/2025 10:33 AM EST Adult Nutrition Evaluation Note Orly Tay 45 y.o. male CSN: [id number] Room/Bed 213/213A Nutrition evaluation type: follow-up Reason [...] drinking Boost between meals. Boost Rx to [facility] for outpatient use. w/ questions from [...] (Calculated): 27.11 Weight Evaluation: Overweight (BMI 25-29.9) [place] Body Weight (kg): 86.4 Percent [place] Body Weight: 112 Adjusted Body Weight (kg): [...] oz) Estimated Needs: Kcal/ K-35 Kcal Provided: 9150-5212 Kcal Needs Based On: Current weight Gm [...] Education Provided: Yes (Post-transplant) Pertinent home medications: Restorationist needs: Nutrition Focused Physical Exam: Physical exam [...] met, continue) Acuity Level: 2 Yari Reilly, RD, LD [1] Past Medical History: Diagnosis [...] Oral, Daily * Progress Notes - Velasquez Odonnell MD - 01/15/2025 8:35 AM EST Abdominal Transplant Surgery Progress Note Events of past 24 hours: Orly Tay is a 44yo male with a PMH of decompensated alcohol related cirrhosis, ascites, HE, SBP, depression, anxiety, GERD, and HTN who presents to [facility] on 01/02 for possible liver transplant. 01/03: OLT Interval: NAEON. MRCP with evidence of biliary stricture. Liver U/S ok. VSS. Hgb and WBC S. Cr 1.37. LFT stable, but Tbili 5.6 (8.9). Edited by: Velasquez Odonnell MD at 01/15/2025 0835 Review of Systems: 14-point ROS negative except as above in HPI. Last Recorded Vitals Blood pressure (!) 149/79, pulse 74, temperature 36.3 ??C (97.3 ??F), temperature source Oral, resp. rate 16, height 1.88 m (6' 2.02 ), weight 95.8 kg (211 lb 3.2 oz), SpO2 98%. Output by Drain (mL) 01/13/25 0700 - 01/13/25 1859 01/13/25 1900 - 01/14/25 0659 01/14/25 0700 - 01/14/25 1859 01/14/25 1900 - 01/15/25 [...] results found for: BDVEN , BEVEN , KMQ6WIZ , GNW6BCM , PHVEN , PO2VEN , J9VWRKXO , LFA5LTASPMT , PHVENTEMP Lactate: Lactate, Arterial, Whole Blood [...] PCR [ ] Zosyn until 01/16 Orly Tay is a 44yo male with a PMH of decompensated alcohol related cirrhosis, ascites, HE, SBP, depression, anxiety, GERD, and HTN who presents to [facility] on 01/02 for possible liver transplant. Now s/p liver transplant on 01/03. Extubated post-op 01/03 to [place], now on RA. HDS off pressors. Abdominal [...] rehab Dispo: acute rehab Edited by: Velasquez Odonnell MD at 01/15/2025 0835 Velasquez Odonnell MD PGY-1 General Surgery 01/15/2025 [1] amLODIPine, [...] Beckford MD * Care Plan - Mirtha Miranda, RN - 01/15/2025 6:50 AM EST Problem: Adult Inpatient Plan of Care Goal: Plan of Care Review Outcome: Ongoing, Progressing Flowsheets (Taken 01/14/20251744 by Bree Mcfarland, RN) Progress: improving Outcome Evaluation: pt verbalized [...] Review Outcome: Ongoing, Progressing Flowsheets (Taken 01/14/2025 8105) Progress: improving Outcome Evaluation: pt verbalized understanding [...] Progressing Intervention: Optimize Skin Protection Flowsheets Taken 01/14/20251951 Pressure Reduction Techniques: heels elevated off bed Pressure Reduction Devices: chair cushion utilized Taken 01/14/2025 1800 Activity Management: activity adjusted per tolerance Head of Bed (HOB) Positioning: HOB elevated Problem: Infection Goal: Absence of Infection Signs and Symptoms Outcome: Ongoing, Progressing * Progress Notes - AlisonrMariela RN - 01/14/2025 3:07 PM EST Referral to [facility] for RW for home use. PT/OT recs changed from acute rehab to HWA and OP PT. * Progress Notes - Velasquez Odonnell MD - 01/14/2025 10:16 AM EST Abdominal Transplant Surgery Progress Note Events of past 24 hours: Orly Tay is a 44yo male with a PMH of decompensated alcohol related cirrhosis, ascites, HE, SBP, depression, anxiety, GERD, and HTN who presents to [facility] on 01/02 for possible liver transplant. [...] results found for: BDVEN , BEVEN , XNE9EUK , HEB5AHW , PHVEN , PO2VEN , S3XOJZKI , AVL0VCVCOOR , PHVENTEMP Lactate: Lactate, Arterial, Whole Blood [...] [ ] f/u liver bx results Orly Tay is a 44yo male with a PMH of decompensated alcohol related cirrhosis, ascites, HE, SBP, depression, anxiety, GERD, and HTN who presents to [facility] on 01/02 for possible liver transplant. Now s/p liver transplant on 01/03. Extubated post-op 01/03 to [place], now on RA. HDS off pressors. Abdominal exam is stable. Tbili has been increasing significantly, US Liver unremarkable with patent flow, MRCP consistent with biliary stricture. NINA improving. We will continue ursodiol and zosyn. ERCP, no stricture, stent placed. T bili 8.9 (11) after solumedrol. IR biopsy performed yesterday with [place] [facility], will follow up to determine next [...] rehab Dispo: acute rehab Edited by: Velasquez Odonnell MD at 01/14/2025 1016 Velasquez Odonnell MD PGY-1 General Surgery 01/14/2025 [1] amLODIPine, [...] Care Review Outcome: Ongoing, Progressing Flowsheets (Taken 01/13/2025 1931) Progress: improving Plan of Care Reviewed With: patient Goal: Patient-Specific Goal (Individualized) Outcome: Ongoing, Progressing Goal: Absence of Hospital-Acquired Illness or Injury Outcome: Ongoing, Progressing Goal: Optimal Comfort and Wellbeing Outcome: Ongoing, Progressing Intervention: Monitor Pain and Promote Comfort Flowsheets (Taken 01/13/2025 193) Pain Management Interventions: medication (see MAR) position [...] been discussed with the patient and/or their equal opportunity representative. All questions answered and they agree to proceed. [1] Social History Tobacco Use Smoking Status Never Passive exposure: Current Smokeless Tobacco Current Types: Chew [2] Current Facility-Administered Medications Medication Dose Route Frequency Provider Last Rate Last Admin amLODIPine (Norvasc) tablet 5 mg 5 mg Oral Daily Camilla Soto APRN, PATTI 5 mg at 01/13/25 0848 aspirin chewable tablet 81 mg 81 mg Oral Daily Velasquez Odonnell MD 81 mg at 01/13/25 0848 bisacodyl [...] of glucose Sublingual q15 min PRN Velasquez Odonnell MD Or dextrose 10 % (D10W) bolus 125 mL 125 mL Intravenous q15 min PRN Velasquez Odonnell MD 500 mL/hr at 01/12/25 1319 125 mL at 01/12/25 1319 Or dextrose 10 % (D10W) bolus 250 mL 250 mL Intravenous q15 min PRN Velasquez Odonnell MD Or glucagon (human recombinant) injection 1 mg 1 mg Intramuscular q15 min PRN Velasquez Odonnell MD ergocalciferol (Vitamin D-2) capsule 50,000 Units [...] Soto APRN, DNP 10 mg at 01/03/25 1708 Or hydrALAZINE (Apresoline) injection 20 mg 20 mg Intravenous q1h PRN Camilla Soto APRN, DNP 20 mg at 01/06/25 0725 hydrOXYzine HCl (Atarax) tablet 10 mg 10 mg Oral q6h PRN Yari Quesada MD 10 mg at 01/12/25 1716 insulin lispro (Admelog) 100 units/mL injection - [...] Camilla Soto APRN, DNP 20 mg at 01/07/251918 lidocaine 1% in sodium bicarbonate (buffered lidocaine)10 [...] Camilla Soto APRN, DNP 40 mg at 849 piperacillin-tazobactam (Zosyn) 4.5 g in sodium chloride [...] mL Intravenous q12h Vanda Maguire APRN, DNP And sodium chloride 0.9 % flush 10 mL 10 mL Intravenous PRN Vanda Maguire APRN, DNP sodium chloride 0.9 % flush 20 mL 20 mL Intravenous q1h PRN Camilla Soto APRN, DNP sulfamethoxazole-trimethoprim (Bactrim) 400-80 [...] 0848 * Progress Notes - Diego West F - 01/13/2025 12:55 PM EST PHYSICAL THERAPY TREATMENT PATIENT DATA Patient Name Orly Tay Session Date 01/13/2025 Total Treatment Time 42 [...] walker Additional Comments Patient had been to [facility] in September, and was still receiving outpatient PT. PRIOR LEVEL OF FUNCTION Receives help from Spouse Level of Mobility Ambulatory- household only Mobility Weld Independent gait without device History of Falls [...] Bed <> Chair since last PT treatment. Supervisor Photocomposition (if applicable) Supervisor Photocomposition: Not Applicable OBJECTIVE & INTERVENTIONS PAIN Pt [...] chair 1-3x daily and ambulate hallway with staff research scientist as able, if able. THERAPEUTIC ACTIVITY Treatment Minutes 15 BED MOBILITY Level of Weld Physical/Non- physical Assist Adaptive Equipment Utilized Rolling/ Turning Scooting/ Bridging Supine to Sit Sit to Supine Interventions pt recieved and left sitting upright in bedside chair TRANSFERS Level of Weld Physical/Non- physical Assist Adaptive Equipment Utilized Sit [...] Posture: Rounded shoulders, Forward head Level of Weld Balance Support Interventions Static Sit Supervision Feet [...] to ensure safety. -pt demonstrated ability to fruit picker 5 inch item from ground level via squat technique and performing right and left 360 degree turns with CGA. Level of Weld Distance Adaptive Equipment Utilized Gait Moderate verbal [...] of HEP provided. Access Code: [email or web address] URL: [email or web address] Date: 01/13/2025 Prepared by: Diego West Exercises [...] 3 sets - 10 reps Standardized Assessments [facility] 6-Clicks Mobility Assessment Difficulty patient has [...] 3-5 steps with a railing?: A little [facility] 6-Clicks Mobility Assessment Total : 18 [...] 1:16 PM. * Progress Notes - Saniya Bond APRN - 01/13/2025 12:10 PM EST Physical Medicine & Rehabilitation Inpatient Consult Followup cc: Decompensation of cirrhosis of liver (CMS/HCC) Subjective: Patient seen and examined. Family at bedside including Discussed ambulation as was increasingy difficult with edema and scrotal swelling which has improved. Discussed readiness for rehab Patient denies any specific concerns or complaints. able to assist at discharge, planning to go back to [facility] when ready Patient and family would like to go to [facility] when ready Therapy notes reviewed: Bed mobility: [...] Right drain with bloody drainage : no cruz Skin: warm, dry Heme/lymph/immune: scattered bruising Psychiatric: [...] precautions: No other precautions required ASSESSMENT/PLAN: Orly Tay is a 44 y.o. male w/PMH of [...] We will continue to follow. Please page [phone] with any questions, or resident on-call if after hours or on weekends. Saniya Bond, TITA Physical Medicine & Rehabilitation [1] [2] amLODIPine, [...] EST Occupational Therapy Treatment Patient Name: Orly Tay Today's Date: 01/13/2025 OT Discharge Recommendations: Home [...] Transfer Exam: Sit to stand Level of Weld: (SBA with RW, CGA without AD) Physical/Nonphysical Assist: Verbal Cues, Nonverbal cues (demo/gestures), 1 person + 1 person to manage equipment Assistive Device: (trials with and without RW) Transfer Exam: Stand to Sit Level of Weld: (SBA with RW, CGA without AD) Physical/Nonphysical [...] initially, progresses to CGA using no AD/no BATCHING OPERATOR Apparatus: Chair follow Assistance: Contact guard assist, pt requires CGA for head positional changes, functional reaching,weight shifting outside base of support, and directional changes throughout ambulation ~household simulated distances, seated rest breaks provided throughout balance training activities Therapeutic Exercise (11 minutes) 1# weights provided for use with the following ariel UE strengthening HEP issued this date, Thubrikar Aortic ValveAccess Code: [email or web address] URL: [email or web address] Exercises include- Single Arm Shoulder Flexion with [...] Progress Note Identifying Information: Patient Name: Orly Tay Date of : 1980 Clinical Summary: Txp [...] post- transplant psychosocial needs Laura Muñiz LCSW, [facility] Transplant Lumber Stacker Operator Liver team * Progress Notes - Gretel [...] hours were personally reviewed. ASSESSMENT/PLAN Mr. Orly Tay is a 44 y.o. year old male with a PMH of decompensated alcohol related cirrhosis s/p OLT, ascites, HE, SBP, depression, anxiety, GERD, and HTN who presents to [facility] on 01/02 for possible liver transplant. [...] Gastroenterology and Nutrition PGY-6 GI Fellow Pager: [phone] [facility] Chat [1] amLODIPine, 5 mg, Oral, Daily [...] Note Events of past 24 hours: Orly Tay is a 44yo male with a PMH of decompensated alcohol related cirrhosis, ascites, HE, SBP, depression, anxiety, GERD, and HTN who presents to [facility] on 01/02 for possible liver transplant. [...] results found for: BDVEN , BEVEN , TPB6FYR , NZE6UTU , PHVEN , PO2VEN , U3JDWJSC , DEI2RSDJYVF , PHVENTEMP Lactate: Lactate, Arterial, Whole Blood [...] ] NPO for IR biopsy today Orly Tay is a 44yo male with a PMH of decompensated alcohol related cirrhosis, ascites, HE, SBP, depression, anxiety, GERD, and HTN who presents to [facility] on 01/02 for possible liver transplant. Now s/p liver transplant on 01/03. Extubated post-op 01/03 to [place], now on RA. HDS off pressors. Abdominal [...] cellcept 500 mg BID, pred 5, fk / GI reg: PPI, miralax, doc-senna LTD: PIV x2, DVT ppx: SCDs, SQH BID held, asa held Consults: PM&R PT/OT: 01/08: acute rehab Dispo: acute rehab Getting solumedrol today. Pending IR bx today Edited by: Estee Rosales at 01/13/2025 0859 Estee Rosales, DO [1] amLODIPine, 5 mg, Oral, Daily [...] care Satnam Beckford MD * Consults - Andrez Vanda Eulogio, SENIOR DESIGNER, DNP - 01/13/2025 8:14 AM ESTAssociated Order(s): IP CONSULT TO INTERVENTIONAL RADIOLOGY Images from the original note were not included. 01/13/25 Patient: Orly Tay Date of : 1980/45 y.o. Requesting Service: Satnam Beckford MD Chief Complaint: Decompensated of cirrhosis of liver Reason for Consult: Random liver biopsy History of Present Illness: Orly Tay is a 45 y.o. male with a past medical history of decompensated alcohol related cirrhosis s/p OLT, ascites, HE, SBP, depression, anxiety, GERD, and HTN, who presented to [facility] on 01/02 for liver transplant. He [...] (98.1 ??F) Heart Rate: [63-76] 66 Resp: [-] 18 BP: (125-155)/(66-87) 143/74 Weight: 105 kg [...] is no recent study available for direct gioi-iy-hjml comparison. Assessment & Plan: Decompensated alcohol related cirrhosis s/p OLT103/05/24 Ascites HE SBP Hyperbilirubinemia MELD 3.0: 25 [...] in the care of this patient. Vanda Maguire APRN, PATTI Interventional Radiology [phone] [1] Past Medical History: Diagnosis Date Anxiety [...] 81 mg, 81 mg, Oral, Daily, Velasquez Odonnell MD, 81 mg at 01/12/25 1716 bisacodyl (Dulcolax) suppository 10 mg, 10 mg, Rectal, Daily, Tg Morales APRN, 10 mg at 01/09/25 0844 buPROPion SR (Wellbutrin SR) 12 hr tablet 150 mg, 150 mg, Oral, BID, Félix Simmons APRN, DNP, 150 mg at 01/12/252024 carvedilol (Coreg) tablet [...] 1 mg, Intramuscular, q15 min PRN, Velasquez Odonnell MD ergocalciferol (Vitamin D-2) capsule 50,000 Units, 50,000 Units, Oral, Weekly, Maciel Olson MD, 50,000 Units at 01/09/25 0844 escitalopram (Lexapro) tablet 10 mg, 10 mg, Oral, Daily, Félix Simmons APRN, PATTI, 10 mg at 01/12/25 0852 ferrous sulfate EC tablet 324 mg, 324 mg, Oral, Daily with breakfast, Félix Simmons APRN, DNP, 324 mg at 01/12/25 0851 fluconazole (Diflucan) tablet 200 mg, 200 mg, Oral, Daily, Maciel Olson MD, 200 mg at 01/12/25 0852 [Held by provider] heparin (porcine) injection 5,000 Units, 5,000 Units, Subcutaneous, BID, Félix Simmons APRN, PATTI, 5,000 Units at 01/08/25 205 hydrALAZINE (Apresoline) injection 10 mg, 10 mg, Intravenous, q1h PRN, 10 mg at 01/03/25 1708 OR hydrALAZINE (Apresoline) injection 20 mg, 20 mg, Intravenous, q1h PRN, Camilla Soto APRN, DNP, 20 mg at 01/06/25 0725 hydrOXYzine HCl (Atarax) tablet 10 mg, 10 mg, Oral, q6h PRN, Yari Quesada MD, 10 mg at 01/12/25 1716 insulin lispro (Admelog) 100 units/mL injection - [...] 100 mL IVPB,250 mg, Intravenous, Once, Velasquez Odonnell MD mycophenolate (Cellcept) capsule 500 mg, 500 [...] Camilla Soto APRN, DNP, 40 mg at 01/12/25 0852 piperacillin-tazobactam (Zosyn) [...] tablet, 2 tablet, Oral, BID, Tg Morales SENIOR DESIGNER, 2 tablet at 01/12/25 0851 sodium chloride 0.9 % flush 10 mL, 10 mL, Intravenous, q12h, Camilla Soto APRN, DNP, 10 mL at 01/13/25 0556 sodium chloride 0.9 % flush 10 mL, 10 mL, Intravenous, q1h PRN, Camilla Soto APRN, DNP Insert peripheral IV, , , Once AND Saline lock IV, , , Once AND sodium chloride 0.9 % flush10 mL, 10 mL, Intravenous, q12h, 10 mL at 01/12/25 225 AND sodium chloride 0.9 % flush 10 mL, 10 mL, Intravenous, PRN, Da De MD Insert peripheral IV, , , Once AND Saline lock IV, , , Once AND sodium chloride 0.9 % flush10 mL, 10 mL, Intravenous, q12h, 10 mL at 01/12/25 225 AND sodium chloride 0.9 % flush 10 [...] EST Physical Therapy Treatment Patient Name: Orly Tay Today's Date: 2025 PT Discharge Recommendations: Acute rehab Equipment Recommended: Defer to facility Subjective Patient agreeable to PT treatment. Participants in Care Family/Caregiver Present: Yes Family/Caregiver: Spouse Supervisor Photocomposition: Not Applicable Presentation Oxygen Therapy: None (Room [...] bed. Bed Mobility Exam: Rolling/Turning Level of Weld: Minimum assist (75% patient effort) Physical/Nonphysical Assist: Verbal Cues, Minimal cues Assistive Device: Bed rails Bed Mobility Exam: Scooting/Bridging Level of Weld: Contact guard (seated scoot to edge of bed) Physical/Nonphysical Assist: Verbal Cues, Minimal cues, Set-up required Assistive Device: Bed rails Bed Mobility Exam: Supine to Sit Level of Weld: Minimum assist (75% patient's effort) Physical/Nonphysical Assist: Verbal Cues, Set-up required, Maximal cues, Nonverbal cues (demo/gestures), HOB elevated Assistive Device: Bed rails Bed Mobility Exam: Sit to Supine Level of Weld: (Not assessed. Patient left up in chair.) Transfers Transfer Interventions: PT provided maximal verbal cues for safe hand placement on RW and sitting surface, pushing up to stand and reaching back to sit, to ensure safe transition. Physical assist provided for balance. 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 Plan for ERCP today. Pt not medically cleared for hospital discharge this date. Pt has been referred to [facility] and PM and R is following. * Clinician Note - Reena Simon - 2025 12:15 PM EST Occupational Therapy Attempt Patient Name: Orly Tay Today's Date: 2025 Patient was attempted to [...] and Nutrition Initial Consultation Note: Patient: Orly Tay Date of : 1980 Room: 213/213A Reason for consultation: Liver transplant pt with biliary stricture on MRCP Subjective: History of present illness: Mr. Orly Tay is a 44 y.o. year old male with a PMH of decompensated alcohol related cirrhosis s/p OLT, ascites, HE, SBP, depression, anxiety, GERD, and HTN who presents to [facility] on 01/02 for possible liver transplant. [...] 7:36 AM Assessment and Plan: Mr. Orly Tay is a 44 y.o. year old male with a PMH of decompensated alcohol related cirrhosis s/p OLT, ascites, HE, SBP, depression, anxiety, GERD, and HTN who presents to [facility] on 01/02 for possible liver transplant. [...] DO Gastroenterology and Hepatology, PGY-4 Healthcare Pager: [phone] [1] Past Medical History: Diagnosis Date Anxiety [...] Camilla Soto APRN, PATTI, 5 mg at 01/11/25 [...] Soto APRN, DNP, 25 mg at 01/11/25 0826 ergocalciferol (Vitamin D-2) capsule 50,000 Units, 50,000 Units, Oral, Weekly, Maciel Olson MD, 50,000 Units at 01/09/25 0844 escitalopram (Lexapro) tablet 10 mg, 10 mg, Oral, Daily, Félix Simmons APRN, DNP, 10 mg at 01/11/25 0826 ferrous sulfate EC tablet 324 mg, 324 mg, Oral, Daily with breakfast, Félix Simmons APRN,PATTI, 324 mg at 01/11/25 0826 fluconazole (Diflucan) tablet 200 mg, 200 mg, Oral, Daily, Maciel Olson MD, 200 mg at 01/11/25 08 [Held by provider] heparin (porcine) injection 5,000 Units, 5,000 Units, Subcutaneous, BID, Félix Simmons APRN, DNP, 5,000 Units at 01/08/252055 hydrALAZINE (Apresoline) injection 10 mg, 10 mg, Intravenous, q1h PRN, 10 mg at 01/03/25 170 OR hydrALAZINE (Apresoline) injection 20 mg, 20 mg, Intravenous, q1h PRN, Camilla Soto APRN, PATTI, 20 mg at 01/06/25 07 hydrOXYzine HCl (Atarax) tablet 10 mg, 10 [...] Cheryl Choi MD, 10 mg at 01/11/25 08 pantoprazole (Protonix) EC tablet 40 mg, 40 mg, Oral, Daily, Camilla Soto APRN, DNP, 40 mg at 01/11/25 08 piperacillin-tazobactam (Zosyn) 4.5 g in sodium chloride 0.9% 100 mL IVPB (vial adapter required), 4.5 g, Intravenous, q6h, Negro Cr MD, Last Rate: 36.7 mL/hr at 01/11/251844, 4.5 g at 01/11/251844 polyethylene glycol (Miralax) packet 17 g, 17 g, Oral, Daily, Tg Morales APRN, 17 g at 01/10/25 09 predniSONE (Deltasone) tablet 5 mg, 5 mg, Oral, Daily with breakfast, Negro Cr MD, 5 mg at 01/11/25 08 senna-docusate (Lauren-Colace) 8.6-50 MG per tablet 2 tablet, 2 tablet, Oral, BID, Tg Morales APRN, 2 tablet at 01/11/25 08 sodium chloride 0.9 % flush 10 mL, [...] Daily, Maciel Olson MD, 1 tablet at 01/11/25825 tacrolimus (Prograf) capsule 2 mg, 2 mg, [...] Daily, Maciel Olson MD, 450 mg at 01/11/25 0826 Cosigned by Parmjit Garcia MD at 2025 7:33 AM EST * Imelda Lynn RN - 2025 10:24 AM EST Images from the original note were not included. [id number] Endoscopy Unit: Caring for Yourself after an [...] will be available in the patient portal, [employer], or you can call the doctor who [...] and ask for the Endoscopy Fellow on-call. * [facility] Imelda Lucas RN - 2025 10:24 AM EST Images from the original note were not included. [id number] Anesthesia: General Anesthesia You?re due to have [...] medicines you take. This includes prescription and jnzb-rdq-injklao medicines. It also includes vitamins, herbs, and [...] safe. Last Reviewed Date: 2023 00:00:00 ?? [id number] [employer]. All rights reserved. This information is not intended as a substitute for professional medical care. Always follow your healthcare professional's instructions. * Consults - Yari Reilly, RD - 2025 10:21 AM EST Adult Nutrition Evaluation Note Orly Tay 45 y.o. male CSN: [id number] Room/Bed 213/213A Nutrition evaluation type: follow-up Reason [...] (Room air) O2 Delivery Method: Nasal cannula [place] Coma Scale Score: 15 [place] Scale Score: [...] (Calculated): 27.27 Weight Evaluation: Overweight (BMI 25-29.9) [place] Body Weight (kg): 86.4 Percent [place] Body Weight: 112 Adjusted Body Weight (kg): [...] oz) Estimated Needs: Kcal/ K-35 Kcal Provided: 4918-9761 Kcal Needs Based On: Current weight Gm [...] Education Provided: Yes (Post-transplant) Pertinent home medications: Restorationist needs: Nutrition Focused Physical Exam: Physical exam [...] average (met, continue) Acuity Level: 2 Yari Reilly, RD, LD [1] Past Medical History: Diagnosis [...] EST Physical Therapy Attempt Patient Name: Orly Tay Today's Date: 2025 Patient was attempted to be seen by physical therapy 2025 for PT Treatment however patient offthe floor. Physical therapy team will follow-up when patient is available. Written by Elyssa Healy on 01/12/25 at 1:38 PM. * Progress Notes - Velasquez Odonnell MD - 2025 8:57 AM EST Abdominal Transplant Surgery Progress Note Events of past 24 hours: Orly Tay is a 44yo male with a PMH of decompensated alcohol related cirrhosis, ascites, HE, SBP, depression, anxiety, GERD, and HTN who presents to [facility] on 01/02 for possible liver transplant. 01/03: OLT Interval: POD9. NAEON. MRCP with evidence of biliary stricture. Liver U/S ok. AF, HDS, RA. Hgb and WBC S. Cr stable 1.26. LFT stable, Tbili increase 10.4 (8.5). UOP 1.4 L. Edited by: Velasquez Odonnell MD at 2025 0856 Review of Systems: [...] results found for: BDVEN , BEVEN , MAN4UPZ , YXP0IVV , PHVEN , PO2VEN , I1SCDGJI , QBO3CFWUPBY , PHVENTEMP Lactate: Lactate, Arterial, Whole Blood [...] held for ERCP for biliary stricture Orly Tay is a 44yo male with a PMH of decompensated alcohol related cirrhosis, ascites, HE, SBP, depression, anxiety, GERD, and HTN who presents to [facility] on 01/02 for possible liver transplant. Now s/p liver transplant on 01/03. Extubated post-op 01/03 to [place], now on RA. HDS off pressors. Abdominal [...] rehab Dispo: acute rehab Edited by: Velasquez Odonnell MD at 2025 0857 Velasquez Odonnell MD PGY-1 General Surgery 2025 [1] amLODIPine, [...] Range Position Flowsheets (Taken 01/11/2025 0800 by Rosibel Delvalle RN) Range of Motion: active ROM (range of motion) encouraged Goal: Compensation for Sensory Deficit Outcome: Ongoing, Progressing Intervention: Optimize Sensory Function Flowsheets (Taken 01/12/202545) Skin Protection: incontinence pads utilized Problem: Skin Injury Risk Increased Goal: Skin Health and Integrity Outcome: Ongoing, Progressing Intervention: Optimize Skin Protection Flowsheets (Taken 2025 0046) Skin Protection: incontinence pads utilized Problem: Infection Goal: Absence of Infection Signs and Symptoms Outcome: Ongoing, Progressing * Consults - Kimberly Owen DO - 01/11/2025 8:10 PM ESTAssociated Order(s): Inpatient consult to Gastroenterology Inpatient consult to Gastroenterology Consult performed by: Kimberly Owen DO Consult ordered by: Jude Gillis MD Inpatient Gastroenterology, Hepatology and Nutrition Initial Consultation Note: Patient: Orly Tay Date of : 1980 Room: [address] [place] [address] Reason for consultation: Liver transplant pt with biliary stricture on MRCP Subjective: History of present illness: Mr. Orly Tay is a 44 y.o. year old male with a PMH of decompensated alcohol related cirrhosis s/p OLT, ascites, HE, SBP, depression, anxiety, GERD, and HTN who presents to [facility] on 01/02 for possible liver transplant. [...] 7:36 AM Assessment and Plan: Mr. Orly Tay is a 44 y.o. year old male with a PMH of decompensated alcohol related cirrhosis s/p OLT, ascites, HE, SBP, depression, anxiety, GERD, and HTN who presents to [facility] on 01/02 for possible liver transplant. [...] DO Gastroenterology and Hepatology, PGY-4 Healthcare Pager: [phone] [1] Past Medical History: Diagnosis Date Anxiety [...] Soto APRN, DNP, 5 mg at 01/11/25 08 bisacodyl (Dulcolax) suppository 10 mg, 10 mg, Rectal, Daily, Tg Morales APRN, 10 mg at 01/09/25 0844 buPROPion SR (Wellbutrin SR) 12 hr tablet 150 mg, 150 mg, Oral, BID, Félix Simmons APRN, DNP, 150 mg at 01/11/25 0826 carvedilol (Coreg) tablet 25 mg, 25 mg, Oral, BID, Camilla Soto APRN, DNP, 25 mg at 01/11/25 0826 ergocalciferol (Vitamin D-2) capsule 50,000 Units, 50,000 Units, Oral, Weekly, Maciel Olson MD, 50,000 Units at 01/09/25 0844 escitalopram (Lexapro) tablet 10 mg, 10 mg, Oral, Daily, Félix Simmons APRN, PATTI, 10 mg at 01/11/25 0826 ferrous sulfate EC tablet 324 mg, 324 mg, Oral, Daily with breakfast, Félix Simmons APRN, DNP, 324 mg at 01/11/25 0826 fluconazole (Diflucan) tablet 200 mg, 200 mg, Oral, Daily, Maciel Olson MD, 200 mg at 01/11/25 08 [Held by provider] heparin (porcine) injection 5,000 Units, 5,000 Units, Subcutaneous, BID, Félix Simmons APRN, DNP, 5,000 Units at 01/08/252055 hydrALAZINE (Apresoline) injection 10 mg, 10 mg, Intravenous, q1h PRN, 10 mg at 01/03/25 170 OR hydrALAZINE (Apresoline) injection 20 mg, 20 mg, Intravenous, q1h PRN, Camilla Soto APRN, DNP, 20 mg at 01/06/25 07 hydrOXYzine HCl (Atarax) tablet 10 mg, 10 mg, Oral, q6h PRN, Yari Quesada MD, 10 mg at 01/11/25 184 insulin lispro (Admelog) 100 units/mL injection - Correction - Standard Dose, 0- 5 Units, Subcutaneous, TID with meals, Yari Quesada MD insulin lispro (Admelog) injection - Correction - Nighttime Dose, 0-3 Units, Subcutaneous, Twice atnight, Yrai Quesada MD labetalol (Normodyne,Trandate) injection 10 mg, [...] mg, 5 mg, Oral, Daily with breakfast, eNgro Cr MD, 5 mg at 01/11/25825 senna-docusate (Lauren-Colace) 8.6-50 MG per tablet 2 tablet, 2 tablet, Oral, BID, Tg Morales APRN, 2 tablet at 01/11/25825 sodium chloride 0.9 % flush 10 mL, 10 mL, Intravenous, q12h, Soto, Camilla R, SENIOR DESIGNER, DNP, 10 mL at 01/11/25 0452 sodium chloride 0.9 % flush 10 mL, 10 mL, Intravenous, q1h PRN, Soto, Camilla R, SENIOR DESIGNER, DNP sodium chloride 0.9 % flush 20 mL, 20 mL, Intravenous, q1h PRN, Soto, Camilla R, SENIOR DESIGNER, DNP sulfamethoxazole-trimethoprim (Bactrim) 400-80 MG per tablet 1 tablet, 1 tablet, Oral, Daily, Maciel Olson MD, 1 tablet at 01/11/25 0826 tacrolimus (Prograf) capsule 2 mg, 2 mg, [...] Daily, Maciel Olson MD, 450 mg at 01/11/25 0826 Cosigned by Parmjit Garcia MD at 2025 [...] Goal (Individualized) Outcome: Ongoing, Progressing Flowsheets (Taken 01/11/2025 08) Patient/Family-Specific Goals (Include Timeframe): Pt will remain [...] (Taken 01/11/20251531) Mutually Determined Action Steps (Optimized Energy Level): [...] (Taken 01/11/20251531) Mutually Determined Action Steps (Improved Mood Symptoms): [...] Intervention: Optimize Skin Protection Flowsheets (Taken 01/11/2025 0800) Activity Management: activity adjusted per tolerance ambulated in room Problem: Infection Goal: Absence of Infection Signs and Symptoms Outcome: Ongoing, Progressing Intervention: Prevent or Manage Infection Flowsheets (Taken 01/11/20251531) Infection Management: aseptic technique maintained Fever Reduction/Comfort Measures: lightweight clothing lightweight bedding Isolation Precautions: precautions maintained * Progress Notes - Yari Quesada MD - 01/11/2025 8:06 AM EST Abdominal Transplant Surgery Progress Note Events of past 24 hours: Orly Tay is a 44yo male with a PMH of decompensated alcohol related cirrhosis, ascites, HE, SBP, depression, anxiety, GERD, and HTN who presents to [facility] on 01/02 for possible liver transplant. [...] SpO2 95%. Output by Drain (mL) 01/09/25 0700 - 01/09/25 1859 01/09/25 1900 - 01/10/25 0659 01/10/25 0700 - 01/10/25 1859 01/10/25 1900 - 01/11/25 0659 01/11/25 0700 - 01/11/25 0807 Patient has no LDAs [...] medial MOLLY drain site improved : No cruz NEURO: GCS 15, alert and oriented 3x [...] results found for: BDVEN , BEVEN , LZK7PVH , VAZ4AVA , PHVEN , PO2VEN , Z4WHPJET , ROB4UHGRSBT , PHVENTEMP Lactate: Lactate, Arterial, Whole Blood [...] for rehab [ ] f/u MRCP Orly Tay is a 44yo male with a PMH of decompensated alcohol related cirrhosis, ascites, HE, SBP, depression, anxiety, GERD, and HTN who presents to [facility] on 01/02 for possible liver transplant. Now s/p liver transplant on 01/03. Extubated post-op 01/03 to [place], now on RA. HDS off pressors. Abdominal [...] Edited by: Yari Quesada MD at 01/11/2025 0807 Yari Quesada MD Department of Urology, PGY-1 Pager: [phone] [1] amLODIPine, 5 mg, Oral, Daily aspirin, [...] Care Review Outcome: Ongoing, Progressing Flowsheets (Taken 01/10/20251621) Progress: improving Outcome Evaluation: pt and verbalize understanding of plan of care Plan of Care Reviewed With: patient spouse Goal: Patient-Specific Goal (Individualized) Outcome: Ongoing, Progressing Flowsheets (Taken 01/10/2025 08) Patient/Family-Specific Goals (Include Timeframe): Pt will remain free of inpatient falls this shift. Individualized Care Needs: Safety Anxieties, Fears or Concerns: itching Goal: Absence of Hospital-Acquired Illness or Injury Outcome: Ongoing, Progressing Intervention: Identify and Manage Fall Risk Flowsheets (Taken 01/10/2025 08) Safety Promotion/Fall Prevention: activity supervised assistive device/personal items within reach clutter-free environment maintained fall prevention program maintained lighting adjusted mobility aid in reach nonskid shoes/slippers when out of bed room organization consistent safety round/check completed toileting scheduled Goal: Optimal Comfort and Wellbeing Outcome: Ongoing, Progressing Intervention: Provide Person-Centered Care Flowsheets (Taken 01/10/20251621) Trust Relationship/Rapport: care explained choices provided emotional support provided questions encouraged questions answered empathic listening provided reassurance provided thoughts/feelings acknowledged Problem: Fall Injury Risk Goal: Absence of Fall and Fall-Related Injury Outcome: Ongoing, Progressing Intervention: Promote Injury-Free Environment Flowsheets (Taken 01/10/2025 08) Safety Promotion/Fall Prevention: activity supervised assistive [...] (Taken 01/10/20251621) Mutually Determined Action Steps (Improved Somatic Symptoms): [...] Optimize Motor Coordination and Function Flowsheets (Taken 01/10/20251621) Self-Care Promotion: independence encouraged Goal: Improved Muscle Strength Outcome: Ongoing, Progressing Intervention: Optimize Muscle Strength Flowsheets (Taken 01/10/20251621) Activity Assistance Provided: assistance, 1 person Self-Care [...] Intervention: Optimize Sensory Function Flowsheets (Taken 01/10/2025 1622) Skin Protection: incontinence pads utilized Problem: Skin Injury Risk Increased Goal: Skin Health and Integrity Outcome: Ongoing, Progressing Intervention: Optimize Skin Protection Flowsheets Taken 01/10/2025 1622 Skin Protection: incontinence pads utilized Taken 01/10/2025 0800 Activity Management: activity adjusted per tolerance Problem: Infection Goal: Absence of Infection Signs and Symptoms Outcome: Ongoing, Progressing Intervention: Prevent or Manage Infection Flowsheets (Taken 01/10/2025 1622) Fever Reduction/Comfort Measures: lightweight bedding lightweight clothing * Progress Notes - Yari Quesada MD - 01/10/2025 11:52 AM EST Abdominal Transplant Surgery Progress Note Events of past 24 hours: Orly Tay is a 44yo male with a PMH of decompensated alcohol related cirrhosis, ascites, HE, SBP, depression, anxiety, GERD, and HTN who presents to [facility] on 01/02 for possible liver transplant. [...] Edited by: Yari Quesada MD at 01/10/2025 7520 Review of Systems: 14-point ROS negative except [...] Leakage around MOLLY drain sites : No cruz NEURO: GCS 15, alert and oriented 3x [...] results found for: BDVEN , BEVEN , UZG9RAU , YAA6FJT , PHVEN , PO2VEN , Z1HVMEJP , SXZ2MOBKGBS , PHVENTEMP Lactate: Lactate, Arterial, Whole Blood [...] ] ursodiol [ ] f/u MRCP Orly Tay is a 44yo male with a PMH of decompensated alcohol related cirrhosis, ascites, HE, SBP, depression, anxiety, GERD, and HTN who presents to [facility] on 01/02 for possible liver transplant. Now s/p liver transplant on 01/03, recovering well. Extubated post-op 01/03 to [place]. HDS off pressors.Hasn't required blood products for [...] cellcept 1000 mg BID, pred 4, fk 2/ Diet: Reg GI reg: PPI, miralax, doc-senna LTD: CVC x1, PIV x2, DVT ppx: SCDs, SQH BID held, asa Consults: PM&R PT/OT: 01/08: acute rehab Dispo: acute rehab Edited by: Yari Quesada MD at 01/10/2025 3080 Yari Quesada MD Department of Urology, PGY-1 Pager: [phone] [1] amLODIPine, 5 mg, Oral, Daily aspirin, [...] toxic side effects, and adjusted levels appropriately. [facility]. Us ok. Jude Albrecht M.D. Abdominal Transplant [...] Intervention: Prevent or Manage Infection Flowsheets (Taken 01/09/2025 1931) Infection Management: aseptic technique maintained Fever Reduction/Comfort Measures: fluid intake increased Isolation Precautions: precautions maintained * Progress Notes - Vanda Radford - 01/09/2025 4:11 PM EST Case Management Adult Progress Note Orly Tay 44 y.o. male CSN: [id number] Admission: 01/02/2025 9:05 AM Primary Problem: Decompensation of cirrhosis of liver (CMS/HCC) SW requested to follow up with [facility] on referral for acute rehab. Per [facility] liaison, Pt will be coming under [place] and auth has not been started with [place] yet. J[facility]ON completed [place] RFS form and sent [phone]. Also sent email to notifing referral sent. Handoff provided to primary to follow up on Sunday. Vanda Radford INDUSTRIAL LABORER, MOTORCYCLE SUBASSEMBLER Case Management * Progress Notes - Cheryl Choi MD - 01/09/2025 8:32 AM EST Abdominal Transplant Surgery Progress Note Events of past 24 hours: Orly Tay is a 44yo male with a PMH of decompensated alcohol related cirrhosis, ascites, HE, SBP, depression, anxiety, GERD, and HTN who presents to [facility] on 01/02 for possible liver transplant. 01/03: OLT Interval: POD6. NAEON. SBP 150-160, AF, HDS, RA. UOP 7.1L (3.7L). BM 2x charted. Hgb and WBC S. Cr 1.67 (1.82). LFT increased slightly. Tbili stable. Edited by: Cheryl Choi MD at 01/09/2025 0832 Review of Systems: 14-point ROS negative except as above in HPI. Last Recorded Vitals Blood pressure (!) 153/77, pulse 71, temperature 36.9 ??C (98.4 ??F), resp. rate 16, height 1.88 m (6' 2.02 ), weight 101 kg (223 lb 12.3 oz), SpO2 97%. Output by Drain (mL) 01/07/25 0700 - 01/07/25 1859 01/07/25 1900 - 01/08/25 0659 01/08/25 0700 - 01/08/25 1859 01/08/25 1900 [...] TTP, distension improving. Incision c/d/I : No cruz NEURO: GCS 15, alert and oriented 3x [...] results found for: BDVEN , BEVEN , JNA8BRH , FWK7WLW , PHVEN , PO2VEN , G5SZHHGJ , FWA9PDXUYGJ , PHVENTEMP Lactate: Lactate, Arterial, Whole Blood [...] ] Plt downtrending > subqH held Orly Tay is a 44yo male with a PMH of decompensated alcohol related cirrhosis, ascites, HE, SBP, depression, anxiety, GERD, and HTN who presents to [facility] on 01/02 for possible liver transplant. Now s/p liver transplant on 01/03, recovering well. Extubated post-op 01/03 to [place]. HDS off pressors.Hasn't required blood products for [...] (133) - Albumin/80 IV lasix 01/08 - Cruz removed ID: AF, WBC 5 - fluconazole [...] Care Review Outcome: Ongoing, Progressing Flowsheets (Taken 01/09/2025624) Progress: improving Outcome Evaluation: pt awaits place [...] THERAPY TREATMENT PATIENT DATA Patient Name Orly Tay Session Date 01/08/2025 Total Treatment Time 31 [...] walker Additional Comments Patient had been to [facility] in September, and was still receiving outpatient PT. PRIOR LEVEL OF FUNCTION Receives help from Spouse Level of Mobility Ambulatory- household only Mobility Weld Independent gait without device History of Falls [...] unaware when pt may be discharged from [facility]. Supervisor Photocomposition (if applicable) Supervisor Photocomposition: Not Applicable OBJECTIVE & INTERVENTIONS PAIN Pain [...] sedentary status. Pt participatedin bed mobility, supine-sit, [id number] and toilet transfers. They were able to [...] appropriate activity pacing. BED MOBILITY Level of Weld Physical/Non- physical Assist Adaptive Equipment Utilized Rolling/ Turning Minimum assist (75% patient effort) Verbal Cues, Additional assist utilized for safety, Minimal cues Bed rail Scooting/ Bridging Contact guard Verbal Cues, Minimal cues, Additional assist utilized for safety Supine to Sit Moderate assist (50% patient's effort) Verbal Cues, Nonverbal cues (demo/gestures), Moderate cues, Additional assist utilized for safety Bed rail TRANSFERS Level of Weld Physical/Non- physical Assist Adaptive Equipment Utilized Sit to Stand Minimum assist (75% patient's effort) Verbal Cues, Nonverbal cues (demo/gestures), Additional assist utilized for safety Walker, rolling Stand to sit Minimum assist (75% patient's effort) Verbal Cues, Nonverbal cues (demo/gestures) Walker, rolling Toilet Transfer Ambulation, To toilet BALANCE Postural Appearance Posture: Rounded shoulders, Forward head Level of Weld Balance Support Facilitated Activities Static Sit Standby [...] shifts, Reaching for objects AMBULATION Level of Weld Distance Adaptive Equipment Utilized Ambulation Minimum assistance [...] review the written HEP and ask questions. [email or web address] Access Code: [email or web address] Standardized Assessments [facility] 6-Clicks Mobility Assessment Difficulty patient has [...] 3-5 steps with a railing?: A lot [facility] 6-Clicks Mobility Assessment Total : 16 [...] EST Occupational Therapy Treatment Patient Name: Orly Tay Today's Date: 01/08/2025 OT Discharge Recommendations: Acute rehab Equipment Recommended: Rolling walker Subjective Spouse reports that pt has been consistently ambulating to and from bathroom with minimal assistance. Participants in Care Family/Caregiver Present: Yes Family/Caregiver: Spouse, Mother Supervisor Photocomposition: Not Applicable Presentation Oxygen Therapy: None (Room [...] transition. Bed Mobility Exam: Rolling/Turning Level of Weld: Minimum assist (75% patient effort) Physical/Nonphysical Assist: Verbal Cues, Additional assist utilized for safety, Minimal cues Assistive Device: Bed rails Bed Mobility Exam: Scooting/Bridging Level of Weld: Contact guard Physical/Nonphysical Assist: Verbal Cues, Minimal cues, Additional assist utilized for safety Assistive Device: Bed rails Bed Mobility Exam: Supine to Sit Level of Weld: Moderate assist (50% patient's effort) Physical/Nonphysical Assist: Verbal Cues, Nonverbal cues (demo/gestures), Moderate cues, Additionalassist utilized for safety Assistive Device: Bed rails Transfers See Self-Care section for details on OT transfer interventions. Transfer Exam: Sit to stand Level of Weld: Minimum assist (75% patient's effort) Physical/Nonphysical Assist: Verbal Cues, Nonverbal cues (demo/gestures), Additional assist utilized for safety Assistive Device: Walker, rolling Transfer Exam: Stand to Sit Level of Weld: Minimum assist (75% patient's effort) Physical/Nonphysical Assist: Verbal Cues, Nonverbal cues (demo/gestures) Assistive Device: Walker, rolling Toilet Transfer Level of Weld: Minimum assist (75% patient's effort) Physical/Nonphysical Assist: [...] HEP also reviewed with caregiver. Access Code: [email or web address] Exercises - Seated Shoulder Horizontal Abduction with [...] Note Events of past 24 hours: Orly Tay is a 44yo male with a PMH of decompensated alcohol related cirrhosis, ascites, HE, SBP, depression, anxiety, GERD, and HTN who presents to [facility] on 01/02 for possible liver transplant. 01/03: OLT Interval: POD5. NAEON. SBP 150-160, AF, HDS, RA. UOP 2.9L (1.8L). MOLLY 180cc SS, BM 3x charted. Cr improving 1.8 (2.1) Changes: DC cruz Albumin and Lasix 80 IV Started asa [...] with sanguinous output with SS leakage. : Cruz in place draining clear yellow urine NEURO: [...] results found for: BDVEN , BEVEN , GFO4RBC , VJD7DAX , PHVEN , PO2VEN , I6PXAGCY , XUD9IHWQPKC , PHVENTEMP Lactate: Lactate, Arterial, Whole Blood [...] distension [ ] F/u lab timing Orly Tay is a 44yo male with a PMH of decompensated alcohol related cirrhosis, ascites, HE, SBP, depression, anxiety, GERD, and HTN who presents to [facility] on 01/02 for possible liver transplant. Now s/p liver transplant on 01/03, recovering well. Extubated post-op 01/03 to [place]. HDS off pressors.Hasn't required blood products for [...] 134) - Albumin/80 IV lasix today - Cruz to be removed ID: AF, WBCs 5.55 - fluconazole Heme: Hgb S, plts 49 (55, 45, 48) - home ferrous sulfate Immunosuppression: cellcept 1000 mg BID, methylpred taper, fk 2/2 (HELD) Diet: Reg GI reg: PPI LTD: CVC x1, PIV x2, 2x MOLLY drains, cruz DVT ppx: SCDs, SQH BID Consults: PM&R [...] and Manage Fall Risk Flowsheets (Taken 01/08/2025 0320) Safety Promotion/Fall Prevention: activity supervised assistive device/personal items within reach clutter-free environment maintained nonskid shoes/slippers when out of bed lighting adjusted fall prevention program maintained safety round/check completed Problem: Adult Inpatient Plan of Care Goal: Absence of Hospital-Acquired Illness or Injury Intervention: Prevent Skin Injury Flowsheets (Taken 01/08/2025 032) Body Position: weight shifting Skin Protection: incontinence pads utilized Problem: Adult Inpatient Plan of Care Goal: Absence of Hospital-Acquired Illness or Injury Intervention: Prevent and Manage VTE (Venous Thromboembolism) Risk Flowsheets (Taken 01/08/2025319) VTE Prevention/Management: bilateral SCDs (sequential compression devices) on Problem: Adult Inpatient Plan of Care Goal: Absence of Hospital-Acquired Illness or Injury Intervention: Prevent Infection Flowsheets (Taken 01/08/2025 0320) Infection Prevention: hand hygiene promoted rest/sleep promoted Problem: Adult Inpatient Plan of Care Goal: Optimal Comfort and Wellbeing Intervention: Monitor Pain and Promote Comfort Flowsheets (Taken 01/08/2025319) Pain Management Interventions: pain management plan reviewed with patient/caregiver Problem: Adult Inpatient Plan of Care Goal: Optimal Comfort and Wellbeing Intervention: Provide Person-Centered Care Flowsheets (Taken 01/08/2025319) Trust Relationship/Rapport: care explained choices provided emotional support provided empathic listening provided questions answered thoughts/feelings acknowledged Problem: Fall Injury Risk Goal: Absence of Fall and Fall-Related Injury Intervention: Identify and Manage Contributors Flowsheets (Taken 01/08/2025 032) Medication Review/Management: medications reviewed Self-Care Promotion: independence encouraged Problem: Fall Injury Risk Goal: Absence of Fall and Fall-Related Injury Intervention: Promote Injury-Free Environment Flowsheets (Taken 01/08/2025319) Safety Promotion/Fall Prevention: activity supervised assistive device/personal [...] and verbalized understanding. 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 Met with pt and at bedside this afternoon. Pt up to chair, alert and interactive. Room air. Lower extremity edema noted. PM and R to see pt today. Per MD Olson pt medically ready for rehab. * Consults - Yrai Reilly RD - 01/07/2025 1:48 PM EST Adult Nutrition Evaluation Note Orly Tay 44 y.o. male CSN: [id number] Room/Bed 213/213A Nutrition evaluation type: follow-up Reason [...] (Room air) O2 Delivery Method: Nasal cannula [place] Coma Scale Score: 15 Rosendo Scale Score: 18 Danyel/Cubbin Pressure Risk Score: 42 Most Recent [...] 30.81 Weight Evaluation: Obese-Class 1 (BMI 30-34.9) [place] Body Weight (kg): 86.4 Percent [place] Body Weight: 126 Adjusted Body Weight (kg): 92 Wt Readings from Last 10 Encounters: 01/07/25 109 kg (240 lb 1.3 oz) 12/30/24 [...] oz) Estimated Needs: Kcal/ K-35 Kcal Provided: 8669-7761 Kcal Needs Based On: Adjusted weight Gm [...] Education Provided: Yes (Post-transplant) Pertinent home medications: Restorationist needs: Nutrition Focused Physical Exam: Physical exam [...] up (met, d/c) Acuity Level: 3 Yari Reilly, RD, LD [1] Past Medical History: Diagnosis [...] Note Events of past 24 hours: Orly Tay is a 44yo male with a PMH of decompensated alcohol related cirrhosis, ascites, HE, SBP, depression, anxiety, GERD, and HTN who presents to [facility] on 01/02 for possible liver transplant. [...] SpO2 96%. Output by Drain (mL) 01/05/25 0700 - 01/05/25 1859 01/05/25 1900 [...] with sanguinous output with SS leakage. : Cruz in place draining clear yellow urine NEURO: [...] results found for: BDVEN , BEVEN , LTX0IQK , XBX3OJN , PHVEN , PO2VEN , W0BJAMJM , RTK1BCEATNA , PHVENTEMP Lactate: Lactate, Arterial, Whole Blood [...] add norvasc or nifedipine [ ] keep cruz [ ] subQH TID and asa > Plt 49 Orly Tay is a 44yo male with a PMH of decompensated alcohol related cirrhosis, ascites, HE, SBP, depression, anxiety, GERD, and HTN who presents to [facility] on 01/02 for possible liver transplant. Now s/p liver transplant on 01/03, recovering well. Extubated post-op 01/03 to [place]. HDS off pressors.Hasn't required blood products for [...] CVC x1, PIV x2, 2x MOLLY drains, cruz DVT ppx: SCDs, SQH BID Consults: CCM [...] Camilla Soto APRN, PATTI, 5 mg at 01/07/25 08 bisacodyl (Dulcolax) suppository 10 mg, 10 mg, Rectal, Daily, Tg Morales APRN, 10 mg at 01/06/25 1500 buPROPion SR (Wellbutrin SR) 12 hr tablet 150 mg, 150 mg, Oral, BID, Félix Simmons APRN, DNP, 150 mg at 01/07/25 0811 carvedilol (Coreg) tablet 25 mg, 25 mg, Oral, BID, Camilla Soto APRN, DNP, 25 mg at 01/07/25 08 [START ON 01/09/2025] ergocalciferol (Vitamin D-2) capsule 50,000 Units, 50,000 Units, Oral, Weekly, Maciel Olson MD escitalopram (Lexapro) tablet 10 mg, 10 mg, Oral, Daily, Félix Simmons APRN, DNP, 10 mg at 01/07/25 0812 fentaNYL (Sublimaze) injection 25 mcg, 25 mcg, Intravenous, q2h PRN, 25 mcg at 01/05/25 0913 ORfentaNYL (Sublimaze) injection 50 mcg, 50 mcg, Intravenous, q2h PRN, Camilla Soto APRN, PATTI, 50 mcg at 01/05/25 0354 ferrous sulfate EC tablet 324 mg, 324 mg, Oral, Daily with breakfast, Félix Simmons APRN, DNP, 324 mg at 01/07/25 08 fluconazole (Diflucan) tablet 200 mg, 200 mg, Oral, Daily, Maciel Olson MD, 200 mg at 01/07/25 0813 heparin (porcine) injection 5,000 Units, 5,000 Units, Subcutaneous, BID, Félix Simmons APRN, DNP, 5,000 Units at 01/07/25 0814 hydrALAZINE (Apresoline) injection 10 mg, 10 mg, Intravenous, q1h PRN, 10 mg at 01/03/25 1708 OR hydrALAZINE (Apresoline) injection 20 mg, 20 mg, Intravenous, q1h PRN, Camilla Soto, TITA, DNP, 20 mg at 01/06/25 0725 insulin regular (HumuLIN R,NovoLIN R) 100 units/mL injection - Correction - Standard Dose, 0-5 Units, Subcutaneous, q6h NICCI, Negro Cr MD labetalol (Normodyne,Trandate) injection 10 mg, 10 mg, Intravenous, q1h PRN, 10 mg at 01/04/252008OR labetalol (Normodyne,Trandate) injection 20 mg, 20 mg, Intravenous, q1h PRN, Camilla Soto, SENIOR DESIGNER, DNP, 20 mg at 01/05/25 1010 methocarbamol [...] Kathy Jiang APRN, DNP, 10 mg at 01/07/25 0850 pantoprazole (Protonix) [...] Camilla Soto APRN, DNP, 50 mg at 01/06/252 [START ON 01/10/2025] valGANciclovir (Valcyte) tablet 450 [...] Outcome: Ongoing, Progressing * Significant Event - Tg Morales APRN - 01/06/2025 10:18 AM EST Mr. Tay had no acute events overnight and is now progressive level of care without further critical care needs. [facility] will sign off. Thank you for allowing us to participate in the care of this patient. Please feel free to consult us for any further needs. * Progress Notes - Laura Muñiz LCSW - 01/06/2025 9:29 AM EST Transplant Social Work Progress Note Identifying Information: Patient Name: Orly Tay Date of : 1980 Clinical Summary: Txmartina FERREIRA is actively collaborating with the [...] has acute rehab rec's and agreeable to [facility]. reports she will be staying with patient. She had received a parking ticket for parking in a visitor spot and had been unable to get it voided. SW spoke with Parking and provided patient's name and anticipated duration of hospitalization. Parking advised they voided the ticket and made a note. SW updated [...] for gas card assistance on discharge. Laura Muñzi LCSW, [facility] Transplant Lumber Stacker Operator Liver team * Progress Notes - Yari Quesada MD - 01/06/2025 8:30 AM EST Abdominal Transplant Surgery Progress Note Events of past 24 hours: Orly Tay is a 44yo male with a PMH of decompensated alcohol related cirrhosis, ascites, HE, SBP, depression, anxiety, GERD, and HTN who presents to [facility] on 01/02 for possible liver transplant. 01/03: OLT Interval: POD3. NAEON. Feeling better, tolerating CLD. AF, HDS, on 2L NC. UOP 790 (975). MOLLY 1095 (840) and 360 (70). Cr up-trending. LFTs and Tbili downtrending. CXR stable, improving. Edited by: Yari Quesada MD at 01/06/2025 0829 Review of Systems: 14-point ROS negative except as above in HPI. Last Recorded Vitals Blood pressure 138/77, pulse 65, temperature (!) 36 ??C (96.8 ??F), resp. rate 9, height 1.88 m (6'2.02 ), weight 112 kg (246 lb 14.6 oz), SpO2 91%. Output by Drain (mL) 01/04/25 0700 - 01/04/25 1859 01/04/25 1900 [...] sores, lesions or subcutaneous nodules. Jaundice. : Cruz in place draining clear yellow urine NEURO: [...] for HTN, add norvasc or nifedipine Orly Tay is a 44yo male with a PMH of decompensated alcohol related cirrhosis, ascites, HE, SBP, depression, anxiety, GERD, and HTN who presents to [facility] on 01/02 for possible liver transplant. Now s/p liver transplant on 01/03, recovering well. Extubated post-op 01/03 to WA. HDS off pressors.Hasn't required blood products for [...] CVC x3, PIV x2, 2x MOLLY drains, cruz, a-line, > de-esscalate as able DVT ppx: SCDs, subQ heparin held Consults: CCM PT/OT: pending Dispo: pending Edited by: Yari Quesada MD at 01/06/2025 0832 Yari Quesada MD Department of Urology, PGY-1 Pager: [phone] [1] amLODIPine, 5 mg, Oral, Daily buPROPion [...] 01/06/2025 9:41 AM EST Associated attestation - Macile Olson MD - 01/06/2025 9:41 AM EST [...] venodynes GI prophylaxis: yes Lines/drains: trialysis, jackie, cruz, TLC. Molly's are still sanguinous. Immunosuppression: fk, [...] Soto APRN, PATTI, 5 mg at 01/06/25 08 buPROPion SR (Wellbutrin SR) 12 hr tablet 150 mg, 150 mg, Oral, BID, Félix Simmons APRN, DNP, 150 mg at 01/06/25 08 carvedilol (Coreg) tablet 25 mg, 25 mg, Oral, BID, Camilla Soto APRN, DNP, 25 mg at 01/06/25 08 escitalopram (Lexapro) tablet 10 mg, 10 mg, Oral, Daily, Félix Simmons APRN, PATTI, 10 mg at 01/06/25 08 fentaNYL (Sublimaze) injection 25 mcg, 25 mcg, Intravenous, q2h PRN, 25 mcg at 01/05/25 0913 ORfentaNYL (Sublimaze) injection 50 mcg, 50 mcg, Intravenous, q2h PRN, Camilla Soto APRN, DNP, 50 mcg at 01/05/25 0354 ferrous sulfate EC tablet 324 mg, 324 mg, Oral, Daily with breakfast, Félix Simmons, SENIOR DESIGNER,DNP, 324 mg at 01/06/25 0812 [START ON 01/07/2025] fluconazole (Diflucan) tablet 200 mg, 200 mg, Oral, Daily, Maciel Olson MD hydrALAZINE (Apresoline) injection 10 mg, 10 mg, Intravenous, q1h PRN, 10 mg at 01/03/25 1708 OR hydrALAZINE (Apresoline) injection 20 mg, 20 mg, Intravenous, q1h PRN, Camilla Soto, TITA, DNP, 20 mg at 01/06/25 0725 insulin regular (HumuLIN R,NovoLIN R) 100 units/mL injection - Correction - Standard Dose, 0-5 Units, Subcutaneous, q6h NICCI, Negro Cr MD labetalol (Normodyne,Trandate) injection 10 mg, 10 mg, Intravenous, q1h PRN, 10 mg at 01/04/252008OR labetalol (Normodyne,Trandate) injection 20 mg, 20 mg, Intravenous, q1h PRN, Camilla Soto, SENIOR DESIGNER, DNP, 20 mg at 01/05/25 1010 methocarbamol [...] Camilla Soto APRN, DNP, 10 mL at 01/06/25 0427 sodium chloride [...] & REHABILITATION INPATIENT CONSULT NOTE Patient: Orly Tay : 1980 PCP: Param Eng DO at [address] / [place] [address] Payor: [facility] / Plan: [place] [employer] / Product Type: *No Product type* / Date of Service: 01/05/25 cc: Decompensation of cirrhosis of liver (CMS/HCC) Reason for Consultation: functional evaluation History of Present Illness: Orly Tay is a 44 y.o. 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 Education: some college Hobbies: being with family DME used prior to rehab: was using his grandmothers walker Driving: was driving prior Patient/Family goals: To get stronger and be home by [place] Functional History: Premorbid: Independent with ambulation for [...] Value Units Date/Time Multi Drug Resistance Test [[id number]] Collected: 01/03/25 7708 Order Status: Completed Specimen: Swab from Nares and Lauren Rectal Updated: 01/05/25 0536 Culture No growth at day 1 Narrative: This test was developed and its performance characteristics determined by the [facility]. Although the media is FDA-approved, it is not FDA-approved for all specimen types submitted. The FDA has determined that such clearance or approval is not necessary. This test is used for surveillance purposes. It should not be regarded as investigational or for research. The [facility] is certified under the ClinicalLaboratory Improvement Amendments of 1988 (CLIA-88) as qualified to perform high complexity clinical laboratory testing. Tylor auris Surveillance by PCR [[id number]] (Normal) Collected: 01/03/25 1609 Order Status: Completed Specimen: Swab from Axilla and Groin Updated: 01/04/25 1152 Tylor auris PCR Result Not Detected Narrative: This PCR assay was developed and its performance characteristics determined by [facility] as appropriate for clinical purposes. [...] Abnormal Ventricular Rate 66 Atrial Rate 66 MD Interval 178 QRSD Interval 88 QT Interval 474 QTC Interval 496 P [place] 45 R [place] 29 T Wave [place] 19 Diagnosis Normal sinus rhythm Diagnosis QTcB >= 480 msec Diagnosis Abnormal ECG Diagnosis Diagnosis Confirmed by Jeff Worthington ([id number]) on 12/18/2024 10:06:13 AM *Note: Due to [...] kg from bed weight due to bed dietary assistant SpO2 97% BMI 31.60 kg/m?? Gen: NAD, reclining in bed Eyes: + scleral icterus, pupils round and symmetric Neck: supple, no tracheostomy ENT: nares patent, mucous membranes moist CV: regular rate, no BLE edema Resp: nonlabored breathing, no wheezing GI: abd soft, NTTP, +BS, -r/g, wearing binder : +cruz Skin: warm, dry, jaundiced, lines in B/L neck, +drain X2, right with bloody gauze present Heme/lymph/immune: no bruising, no lymphadenopathy Psychiatric: good judgement, good insight MSK: - BUE strength 4/5 - BLE strength 3/5 - AROM throughout Neurological: awake and alert, participating in conversation, speech fluent CN II-XII intact sensation intact to light touch I reviewed notes I reviewed patient labs and vitals Future Appointments Date Time Provider Department Center 03/06/2025 To Be Determined [facility] ENDO 2 ENDOGSHS [facility] Mobility Orders Mobility Protocol: General - Mobility Guidelines Extremity Precautions: No Extremity Precautions Other mobility precautions: No other precautions required ASSESSMENT/PLAN: Orly Tay is a 44 y.o. male w/PMH of [...] We will continue to follow. Please page [phone] with any questions, or resident on-call if after hours or on weekends. Camilla Mendez APRN Physical Medicine & Rehabilitation [1] Past Medical [...] Kwon RN - 01/05/2025 12:39 PM EST used car renovator rounded with MD Olson and members of Txp team this AM. Pt in bed, alert and interactive. Oxygen per nasal cannula at time of visit. Concern for transfusion over past 24 hrs. Team will follow H and H closely. Per pt drains less bloody this AM. Discussion concerning HTN. Meds to be adjusted if needed. PT/OT recommending acute rehab. Referral to [facility]. PM and R aware of need [...] and review of radiographic studies 01/05/25 Orly Tay HPI Orly Tay is a 44 y.o. male who presents [...] Right Radial 01/03/25 0810 Radial 2 GCS: Juanpablo Coma Scale Score: 15 Review [...] Progress Note Identifying Information: Patient Name: Orly Tay Date of : 1980 Clinical Summary: Txp [...] post- transplant psychosocial needs Laura Muñiz LCSW, [facility] Transplant Lumber Stacker Operator Liver team * Progress Notes - Armida Joyce Ruth - 01/05/2025 9:46 AM EST OCCUPATIONAL THERAPY EVALUATION Note to patient: The Cures Act makes medical notes like these [...] the practitioner. PATIENT DATA Patient Name Orly Tay Session Date 01/05/2025 Total Time 44 minutes OT Discharge Recommendations Acute rehab Equipment Recommendations Rolling walker Discharge Transportation Recommendations Wheelchair transport van/shuttle HISTORY Orly Tay is 44 y.o. male admitted 01/02/2025 for [...] engaged throughout session. Visitors Present Spouse, Mother Supervisor Photocomposition (if applicable) PRESENTATION Oxygen Supplemental oxygen Nasal [...] walker Additional Comments Patient had been to [facility] in September, and was still receiving outpatient PT. PRIOR LEVEL OF FUNCTION Receives help from Spouse Level of Mobility Ambulatory- household only Mobility Weld Independent gait without device History of Falls [...] needed areas of treatment space Level of Weld Interventions: Grooming Minimum assistance Chair level Simulated [...] toileting intervention was completed using a simulated ocm-uo-qqhecxh-commode transfer.The patient required MIN physical assistance for [...] of bilateral hands. BED MOBILITY Level of Weld Physical/Non- physical Assist Adaptive Equipment Utilized Rolling/ [...] Bed rails, Other (drawsheet) TRANSFERS Level of Weld Physical/Non- physical Assist Adaptive Equipment Utilized Sit [...] Appearance Posture: Within Functional Limits Level of Weld Balance Support Interventions Static Sit Contact guard [...] Lateral weight shifts FUNCTIONAL ENDURANCE Level of Weld Distance Adaptive Equipment Utilized Functional Mobility Minimum assistance, Minimal verbal cues, Additional assist needed for line management, Chair follow, Additional assist utilized for safety 10ft Rolling walker Chair follow STANDARDIZED ASSESSMENTS [facility] 6-Click Daily Activities Help from Other: Don/Doff Regular Lower Body Clothings: A lot Help From Other: Bathing: A lot Help From Other: Toileting: A lot Help From Other: Don/Doff Upper Body Clothings: Little Help From Other: Grooming: Little Help From Other: Eating Meals: Little [facility] 6 Click - Daily Activities Score: 15 [...] at 10:04 AM. * Progress Notes - Niraj Elyssa M - 01/05/2025 9:40 AM EST Physical Therapy Evaluation Patient Name: Orly Tay Today's Date: 01/05/2025 PT Discharge Recommendations: Acute rehab Equipment Recommended: Defer to facility History Orly Tay is 44 y.o. male admitted 01/02/2025 for [...] Care Family/Caregiver Present: No Family/Caregiver: Spouse, Mother Supervisor Photocomposition: Not Applicable Presentation Oxygen Therapy: Supplemental oxygen [...] Home Living Comments: Patient had been to [facility] in September, and was still receiving outpatient PT. Prior Level of Function Receives Help From: Spouse Level of Mobility: Ambulatory- household only Mobility Weld: Independent gait without device History of Falls: [...] bed. Bed Mobility Exam: Rolling/Turning Level of Weld: Minimum assist (75% patient effort) Physical/Nonphysical Assist: Verbal Cues, Nonverbal cues (demo/gestures), 1 person + 1 person to manage equipment Bed Mobility Exam: Scooting/Bridging Level of Weld: Minimum assist (75% patient's effort) (seated scoot) Physical/Nonphysical Assist: Nonverbal cues (demo/gestures), Verbal Cues Bed Mobility Exam: Supine to Sit Level of Weld: Moderate assist (50% patient's effort) Physical/Nonphysical Assist: [...] Transfer Exam: Sit to stand Level of Weld: Minimum assist (75% patient's effort) Physical/Nonphysical Assist: Verbal Cues, Nonverbal cues (demo/gestures), Additional assist utilized for safety Assistive Device: Hand held assist Transfer Exam: Stand to Sit Level of Weld: Minimum assist (75% patient's effort) Physical/Nonphysical Assist: Nonverbal cues (demo/gestures), Verbal Cues, Additional assist utilized for safety Assistive Device: Hand held assist Transfer Exam: Bed to Chair/Chair to Bed Level of Weld: Minimum assist (75% patient's effort) Physical/Nonphysical Assist: [...] activity. Standardized Assessments Standardized Assessments Standardized Assessments: [facility] 6-Clicks Mobility Assessment [facility] 6-Clicks Mobility Assessment Difficulty patient has [...] 3-5 steps with a railing?: A lot [facility] 6-Clicks Mobility Assessment Total : 17 [...] Note Events of past 24 hours: Orly Tay is a 44yo male with a PMH of decompensated alcohol related cirrhosis, ascites, HE, SBP, depression, anxiety, GERD, and HTN who presents to [facility] on 01/02 for possible liver transplant. [...] Jaundice. Abd incision C/D/I w/o erythema. : Cruz in place draining clear yellow urine NEURO: [...] [ ] Hold subQH and asa Orly Tay is a 44yo male with a PMH of decompensated alcohol related cirrhosis, ascites, HE, SBP, depression, anxiety, GERD, and HTN who presents to [facility] on 01/02 for possible liver transplant. Now s/p liver transplant on 01/03, recovering well. Extubated post-op 01/03 to [place]. HDS off pressors.Received pRBCs and FFP ON. [...] CVC x3, PIV x2, 2x MOLLY drains, cruz, a-line, > de-esscalate as able DVT ppx: SCDs, subQ heparin held Consults: CCM PT/OT: pending Dispo: pending Edited by: Abisai Kirk at 01/05/2025 0823 Abisai Kirk, MS3 [1] buPROPion SR, 150 mg, Oral, [...] saw and evaluated the patient with the medical/LOADING CHECKER/PA student. I discussed the case with the medical/LOADING CHECKER/PA student and agree with the findings and [...] mg, Oral, Daily with breakfast, Félix Simmons APRN,DNP, 324 mg at 01/05/25 0845 fluconazole in NS (Diflucan) IVPB 200 mg, 200 mg, Intravenous, q24h, Negro Cr MD, Last Rate: 100 mL/hr at 01/04/25 2357, 200 mg at 01/04/25 2357 hydrALAZINE (Apresoline) injection 10 mg, 10 mg, Intravenous, q1h PRN, 10 mg at 01/03/25 1708 OR hydrALAZINE (Apresoline) injection 20 mg, 20 mg, Intravenous, q1h PRN, Camilla Soto APRN, DNP, 20 mg at 01/05/25 0713 insulin regular (HumuLIN R,NovoLIN R) 100 units/mL injection - Correction - Standard Dose, 0-5 Units, Subcutaneous, q6h [facility], Negro Cr MD labetalol (Normodyne,Trandate) injection 10 mg, 10 mg, Intravenous, q1h PRN, 10 mg at 01/04/252008OR labetalol (Normodyne,Trandate) injection 20 mg, 20 mg, Intravenous, q1h PRN, Camilla Soto APRN, PATTI, 20 mg at 01/05/25 0726 methocarbamol (Robaxin) [...] Cr MD, Last Rate: 152.5 mL/hr at 01/04/25 2224, 1,000 mg at 01/04/25 2224 ondansetron (Zofran) injection 4 mg, 4 [...] mL, 10 mL, Intravenous, q12h, Camilla Soto, SENIOR DESIGNER, DNP, 10 mL at 01/04/25 1722 sodium [...] mg, Oral, Nightly PRN, Camilla Soto APRN, PATTI, 50 mg at 01/04/25 2109 * Care Plan - Shaka Burciaga RN [...] Body Position: turned Taken 01/02/20252029 by Allison Rosenbaum, RN Skin Protection: incontinence pads utilized Intervention: Prevent and Manage VTE (Venous Thromboembolism) Risk Flowsheets (Taken 01/04/20251999) VTE Prevention/Management: bilateral SCDs (sequential compression devices) on Intervention: Prevent Infection Flowsheets (Taken 01/04/20252055) Infection Prevention: environmental surveillance performed Goal: Optimal Comfort and Wellbeing Outcome: Ongoing, Progressing Intervention: Monitor Pain and Promote Comfort Flowsheets (Taken 01/04/2025 191) Pain Management Interventions: medication (see MAR) Intervention: Provide Person-Centered Care Flowsheets (Taken 01/04/20252055) Trust Relationship/Rapport: care explained Problem: Fall Injury Risk Goal: Absence of Fall and Fall-Related Injury Outcome: Ongoing, Progressing Intervention: Identify and Manage Contributors Flowsheets (Taken 01/02/20252099 by Allison Rosenbaum, RN) Medication Review/Management: medications reviewed Self-Care Promotion: [...] Alicia Rodrigues PharmD PGY2 Solid Organ Transplant Olap Developer * Progress Notes - Laura Muñiz LCSW - 01/04/2025 12:17 PM EST Transplant Social Work Admission Note Identifying Information: Patient Name: Orly Tay Date of : 1980 Social Support System: [...] upon discharge [x]Provided patient/caregiver education regarding transplant [x]Txp SW provided contact information and encouraged [...] interventions in follow-up notes Laura Muñiz LCSW, [facility] Transplant Lumber Stacker Operator Liver team * ED Procedure Note - Cheryl Choi MD - 01/04/2025 11:23 AM EST Abdominal Transplant Surgery Progress Note Events of past 24 hours: Orly Tay is a 44yo male with a PMH of decompensated alcohol related cirrhosis, ascites, HE, SBP, depression, anxiety, GERD, and HTN who presents to [facility] on 01/02 for possible liver transplant. [...] Output by Drain (mL) 01/02/25 0700 - 01/02/25185801/02/25 1900 - 01/03/25 0659 01/03/25 0700 - 01/03/25 18501/03/25 1900 - 01/04/25 0659 01/04/25 0700 - [...] MOLLY drains bloody; Covaderm over incision : Cruz in place draining clear yellow urine, adequate [...] results found for: BDVEN , BEVEN , FPG3LAB , IHN2YEM , PHVEN , PO2VEN , J1YRUXYQ , OHQ5UYACPDP , PHVENTEMP Lactate: Lactate, Arterial, Whole Blood [...] 65 [ ] F/u Liver US Orly Tay is a 44yo male with a PMH of decompensated alcohol related cirrhosis, ascites, HE, SBP, depression, anxiety, GERD, and HTN who presents to [facility] on 01/02 for possible liver transplant. Now s/p liver transplant on 01/03, recovering well. Extubated overnight to [place]. HDS off pressors. Received pRBCs and FFP [...] CVC x3, PIV x2, 2x MOLLY drains, cruz, a-line x2, PAC > de-esscalate as able [...] Ppx: Hold SQH/ASA. Ppi Imm: Start fk 03/16. MMF 1000mg BID. Steroid taper Continue ICU [...] NUTRITION SERVICES Adult Nutrition Evaluation Note Orly Tay 44 y.o. male CSN: [id number] Room/Bed 238/238A Nutrition evaluation type: assessment Reason [...] Supplemental oxygen O2 Delivery Method: Nasal cannula Juanpablo Coma [...] 30.3 Weight Evaluation: Obese-Class 1 (BMI 30-34.9) Aurora Body Weight (kg): 86.4 Percent Aurora Body Weight: 124 Estimated Needs: Metabolic Cart Study Results: Current Nutrition Intake: Diet Supplements: None Diet Order: NPO Diet Experience and Nutrition History: Diet Education Provided: Will monitor Pertinent home medications: Restorationist needs: Nutrition Focused Physical Exam: Unable to [...] and review of radiographic studies 01/04/25 Orly Tay HPI Orly Tay is a 44 y.o. male who presents [...] 01/04/2025 0600 Gross per 24 hour Intake 22771 ml Output 3680 ml Net 6536 ml [...] Care Review Outcome: Ongoing, Progressing Flowsheets (Taken 01/04/2025 0013) Progress: improving Outcome Evaluation: pt is stable and progressing through recovery appropriately Plan of Care Reviewed With: patient Goal: Patient-Specific Goal (Individualized) Outcome: Ongoing, Progressing Flowsheets Taken 01/04/2025 0013 by Eleazar Bradford RN Patient/Family-Specific Goals (Include Timeframe): pain will be monitered and at an appropriate level for the rest of this shift Individualized Care Needs: pain Taken 01/03/2025 1600 by Elyssa Augustin RN Anxieties, Fears or Concerns: tyler Goal: Absence of Hospital-Acquired Illness or Injury [...] 6:33 PM EST Post-Operative Check Note Orly Tay is a 44 y.o. male POD#0 from: [...] Both bloody + serosanguinous fluid A/P: Orly Tay is a 44 y.o. male POD#0 from [...] radiographic studies and ventilator management 01/03/25 Orly Tay Consulted for critical care management by Transplant Surgery. HPI Orly Tay is a 44 y.o. male who presents with Decompensation of cirrhosis of liver (CMS/HCC) s/p OLT. PMH significant for HTN, GERD, anxiety, TUD, and alcoholic cirrhosis c/b ascites, HE, SBP, and EV. Received 8u PRBC, 8 FFP, 1 plt, 500mL albumin, and 5L IVF with ~1.5L ascites and EBL 4.8L intra- operatively. [facility] consulted postop for critical care needs. Patient [...] Home Medications: Home Medications[1] Allergies Amoxicillin GCS: [place] Coma Scale Score: 15 Review of Systems Unable to perform ROS: Intubated Vital signs: Vitals: 01/03/25 1515 BP: Pulse: 75 Resp: 18 Temp: 37.2 ??C (99 ??F) SpO2: 97% Intake/Output Summary (Last 24 hours) at 01/03/2025 1518 Last data filed at 01/03/2025 1407 Gross per 24 hour Intake 29490 ml Output 1040 ml Net 53004 ml Physical Exam: Sedation was held for [...] continue to trend Transfuse for INR<2 Camilla Soto, SENIOR DESIGNER, DNP [1] Medications Prior to Admission Medication Sig [...] mL by mouth 2 times a day. 88783 mL 3 pantoprazole (Protonix) 40 MG EC [...] 10:03 AM EST This is to attest brim molder marketing pr intern chart note has been reviewed and okayed. * Perioperative Nursing Note - Ritu Buenrostro RN - 01/03/2025 8:14 AM EST Liver Pump Times: ON: 01/02/2025 @ 1703 OFF: 01/03/2025 @ 1006 TOTAL: 17 hours and 3 minutes * Op Note - Jude Gillis MD - 01/03/2025 8:14 AM EST OPERATIVE NOTE: Backbench Procedure, Whole Liver Allograft PATIENT NAME Orly Tay DATE: 01/03/2025 PREOPERATIVE DIAGNOSIS: Chronic Liver failure POSTOPERATIVE DIAGNOSIS: Same NAME OF OPERATION: 51298 - Backbench standard preparation of cadaver donor [...] AM EST Operative Note Date: 01/03/2025 Location: [place] Name: Orly Tay, : 1980, [facility] DONOR ID: [id number] DONOR ABO: A Recipient ABO: A Negative Diagnoses: Pre-op Diagnosis Decompensation of cirrhosis of liver (CMS/HCC) Post-op Diagnosis Decompensation of cirrhosis of liver (CMS/HCC) Procedure(s): Orthotopic liver transplant Choledochocholedochostomy Placement of 8F pediatric feeding tube endobiliary stent Attending Surgeon(s): * Satnam Beckford N - Primary * Jude Gillis - Assisting Special Considerations: The complexity for this case was beyond the experience level of an available trainee. Therefore, I asked Dr. Jude Albrecht to assist me with this case. Dr. Albrecht assisted with the hepatectomy, vascular anastomoses, and reperfusion. Manager Federal(s): * Negro Cr MD - Resident - [...] Fr. (Active) Site Assessment Clean;Skin intact 01/06/25 0400 CAUTI: Collection Container Standard drainage bag 01/06/25399 CAUTI: Securement Method Securing device (Describe) 01/06/25399 CAUTI: Specimen Collection Port Covered with Alcohol Cap Yes 01/05/251999 CAUTI: Urinary Catheter Indication Yes, meets indication reason 01/05/251999 CAUTI: Urinary Catheter Indication Reasons ICU patient requiring output monitoring q 1-2 hours withinterventions 01/05/251999 Output (mL) 100 mL 01/06/25 0800 [REMOVED] NG/OG [place] Sump Orogastric Left mouth (Removed) Placement Verification X-ray 01/03/251599 Tube Placement Length Marking (cm) 55 01/03/25 1600 Asher Exit Point with Permanent Marker Checked 01/03/25 1600 Site Assessment Clean;Dry;Intact 01/03/25 1600 Surrounding Skin Dry;Intact 01/03/25 1600 Secured by Tape 01/03/25 1600 Secured Location ETT 01/03/25 1600 NG/OG Interventions Skin assessed;Low intermittent suction 01/03/25 1600 Specimen: Specimens ID Source Frozen? 1 Liver No Description: crow liver A Blood, Arterial B Blood, Arterial C Blood, Arterial D Blood, Arterial E Blood, Arterial Findings: siginificant distension of colon, redundant sigmoid. Indications for the Procedure: Orly Tay is a 44 y.o. year old male [...] Drain: Two 19F Velasquez drains placed in laurne-hepatic space Counts correct: Yes Closure: Fascia closed [...] Op Note: Liver Transplant PATIENT NAME Orly Tay DATE: 01/03/25 PREOPERATIVE DIAGNOSIS Chronic Liver failure History of esophageal varicies Hepatic encephalopathy Coagulopathy History of Spontaneous Bacterial Peritonitis Obesity (BMI 30) Hypertension History of alcohol abuse POSTOPERATIVE DIAGNOSIS: Same NAME OF OPERATION: 33154 - Orthotopic cadaveric liver allotransplantation, bicaval technique. 42988 - Choledochocholedcostomy 16744 - Placement of choledochal stent ATTENDING SURGEON: Satnam Beckford MD PRINCIPAL CONSULTANT SURGEON(S): Jude Albrecht MD RESIDENT SURGEON(S): Negro Cr MD ATTENDING ANESTHESIOLOGIST: Josafat Rivera MD PRINCIPAL CONSULTANT ANESTHESIOLOGIST: Aravind Benton MD SPECIMEN: None DISPOSITION: [...] Quesada MD Department of Urology, PGY-1 Pager: [phone] * Care Plan - Allison Rosenbaum RN [...] feelings encouraged * Progress Notes - Greg Sibley, ClifD - 01/02/2025 4:27 PM EST Images from the original note were not included. Pharmacy Consult - Medication History Note HPI: Orly Tay is a 44 y.o. male admitted for [...] nightly. Facility-Administered Medications: None Patients Preferred Pharmacy* [facility] - [place], [place] - [address] [facility] [address], [place] [address] [place] [address] [place], [place] - [address] [place] [address] *May default to [facility] [facility] if patient is enrolled to [id number]. Pharmacy Benefits ORLY TAY [facility] AETNA (MEDIMPACT) Covered: <b>Retail</b> Not covered: Mail Order Unknown: Specialty, Long-Term Care BIN: [id number] : 1980 Group ID: [id number] PCN: [id number] Legal sex: M Group name: Address: [facility] [address] [place] [id number] Additional Comments: reviewed med list with patient's over the phone Greg Sibley PharmAugie 01/02/2025 4:27 PM I agree with the information documented above. All student/marketing pr intern notes from collection of information has [...] completed toileting scheduled * Progress Notes - Dear, Mariela Carmona RN - 01/02/2025 12:22 PM EST Case Management Adult Initial Progress Note Orly Tay 44 y.o. male CSN: [id number] Admission: 01/02/2025 9:05 AM Primary Problem: Decompensation of cirrhosis of liver (CMS/HCC) Hydrodynamics Teacher reviewed chart and spoke with patient to complete this Initial Case Management Assessment. PCP: Param Eng DO Emergency Contact: Extended Emergency Contact Information Primary Emergency Contact: Patricia Tay Address: [address] [address] [facility] Mobile Relation: Spouse Preferred language: Eritrean Insurance: Primary Visit Coverage Payer Plan Sponsor Code Group Number Group Name [facility] Primary Visit Coverage Subscriber Subscriber ID Subscriber Name Subscriber [facility] Subscriber Address [id number] ORLY TAY [id number] [address] [address] Secondary Visit Coverage Payer Plan Sponsor Code Group Number Group Name [employer] MEDICAID [employer]NA [facility] [place] Secondary Visit Coverage Subscriber Subscriber ID Subscriber Name Subscriber N Subscriber Address [id number] Orly Tay [id number] [address] [address] Patient information: Pt admitted for liver transplant. [...] sales. Pt still driving. [address] [place] [address] Current DME: No DME at this time. [...] Patient's Discharge Goal: Pt would agree to [facility] stay if needed. He has had rehab stay at [facility] in past. Assistance Available at Discharge: = Primary Mother is secondary. Discharge Transport: Follow Up Transport: Home Health / Home Infusion / Outpatient Dialysis Services: No history of home health. No history of home infusion. No history of dialysis. Living Will/Advance Directive/Power of Guide Setter /Guardian: can make medical decisions if pt can not. Additional Comments: used car renovator met with pt at bedside. Pt alert and interactive. Room air. Mariela Kwon, RN * Progress Notes - Laura Muñiz LCSW - 01/02/2025 11:02 AM EST Transplant Social Work Progress Note Identifying Information: Patient Name: Orly Tay Date of : 1980 Clinical Summary: Per team, Txp SW is aware of the patient's admission due to possible liver transplant. Txp SW is actively collaborating with the multidisciplinary team to support ongoing psychosocial needs related to transplant during patient's admission. Laura Muñiz LCSW, [facility] Transplant Lumber Stacker Operator Liver team * H&P - Félix Simmons APRN, DNP - 01/02/2025 7:48 AM EST Abdominal Transplant Surgery H&P CHIEF COMPLAINT: Decompensated Cirrhosis, possible Liver translplant HISTORY OF PRESENT ILLNESS: Orly Tay is a 44yo male with a PMH of decompensated alcohol related cirrhosis, ascites, HE, SBP, depression, anxiety, GERD, and HTN who presents to [facility] on 01/02 forpossible liver transplant. On [...] Male at 01/02/2025 9:40 AM ASSESSMENT Orly Tay is a 44yo male with a PMH of decompensated alcohol related cirrhosis, ascites, HE, SBP, depression, anxiety, GERD, and HTN who presents to [facility] on 01/02 for possible liver transplant. [...] trazodone 50mg nightly Edited by: Félix Simmons, TITA, DNP at 01/02/2025 1131 Patient educated on transplant surgery evaluation process, [...] mL by mouth 2 times a day. 41514 mL 3 pantoprazole (Protonix) 40 MG EC [...] Description 02/17/2025 7:00 AM EST Clinical Support [facility] [address] [place] [address] 02/17/2025 8:40 AM EST Office Visit [facility] [place] [address] [place] [address] Aboyprkorg-Dtlzq-N urgery-Paul 03/06/2025 11:10 AM EST Appointment [facility] [address] [place] [address] Natalya Valentine MD [address] [place] [address] Pending Results Name Type Priority Associated Diagnoses [...] PM EST SURGICAL PATHOLOGY EXAM Timed 01/14/20 25 4:16 PM EST POCT GLUCOSE METER UNSOLICITED [...] W/O DIFFERENTIAL Timed 01/05/2025 12:00 PM EST MD CRITICAL CARE, E/M 30-74 MINUTES Routine 01/05/2025 [...] PEP THERAPY Routine 01/04/2025 10:00 AM EST MD CRITICAL CARE, E/M 30-74 MINUTES Routine 01/04/2025 [...] VIEW STAT 01/03/2025 3:3 9 PM EST MD CRITICAL CARE, E/M 30-74 MINUTES Routine 01/03/2025 [...] QUANT PCR STAT 01/02/2025 9:40 AM EST HC HEP B CORE AB TEST, TOTAL - HEPATITIS B CORE ANTIBODY, TOTAL STAT 01/02/2025 9:40 AM EST VITAMIN D 25 HYDROXY STAT 01/02/2025 9:40 AM EST HC HBSAG STAT 01/02/2025 9:40 AM EST APTT STAT [...] - 99 mg/dL 01/16/2025 12:04 PM EST [facility] Comment:Accuracy of a glucos e result [...] for testing. Comment 01/16/2025 12:04 PM EST [facility] 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 Machine Operator Helper ID Shonda Kimbrough Augie 12:04 PM EST [facility] Device ID [id number] 01/16/2025 12:04 PM EST [facility] Specimen Type POC Capillary 01/16/2025 12:04 PM EST [facility] Blood Capillary blood specimen / Unknown 01/16/2025 12:01 PM EST 01/16/2025 12:04 PM EST Satnam Beckford MD LAB POINT OF CARE T EST DOCKED DEVICE UNSOLICITED RESULTS Final Result Performing Organization Address City/[facility]/ZIP Co de Phone Number HEALTHCARE LAB [address] [place] [address] * (ABNORMAL) POCT glucose meter (01/16/2025 8:09 AM EST) POCT Glucose 135(H) 74 - 99 mg/dL 01/16/2025 8:11 AM EST [facility] Comment:Accuracy of a glucos e result [...] for testing. Comment 01/16/2025 8:11 AM EST [facility] 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 Machine Operator Helper ID Shonda Kimbrough 8:11 AM EST HEALTHCARE LAB Device ID [id number] 01/16/2025 8:11 AM EST [facility] Specimen Type POC Capillary 01/16/2025 8:11 AM EST [facility] Blood Capillary blood specimen / Unknown 01/16/2025 8:09 AM EST 01/16/2025 8:11 AM EST Satnam Beckford MD LAB POINT OF CARE T EST DOCKED DEVICE UNSOLICITED RESULTS Final Result [facility] [address] [place] [address] * Tacrolimus (01/16/2025 4:48 AM EST) Tacrolimus 4.5 4.0 - 17.0 ng/mL 01/16/2025 8:10 AM EST [facility] Blood Venous blood specimen / Unknown Venipuncture / Unknown 01/16/2025 4:48 AM EST 01/16/2025 4:56 AM EST Narrative [facility] - 01/16/2025 8:10 AM EST Test performed by LC-MS/MS at the [facility]. This test was developed and its performance characteristics determined by [facility]. It has not been cleared or approved by the FDA. The laboratory is regulated under CLIA as qualified to perform high-complexity testing. This test is used for clinical purposes. Test performed by LC-MS/MS at the [facility]. This test was developed and its performance characteristics determined by [facility]. It has not been cleared or approved by the FDA. The laboratory is regulated under CLIA as qualified to perform high-complexity testing. This test is used for clinical purposes. Maciel Olson MD LAB BLOOD ORDERABLES Final Resul t Performing Organization Address City/[facility] [place] [address] * Phosphorus (01/16/2025 4:47 AM EST) Phosphorus, Plasma 4.0 2.5 - 4.5 mg/dL 01/16/2025 5:24 AM EST [facility] Blood Venous blood specimen / Unknown Venipuncture / Unknown 01/16/2025 4:47 AM EST 01/16/2025 4:56 AM EST Maciel Olson MD LAB BLOOD ORDERABLES Final Resul t Performing Organization Address City/[facility] [place] [address] * Magnesium (01/16/2025 4:47 AM EST) Magnesium, Plasma 2.0 1.9 - 2.4 mg/dL 01/16/2025 5:24 AM EST [facility] Blood Venous blood specimen / Unknown Venipuncture / Unknown 01/16/2025 4:47 AM EST 01/16/2025 4:56 AM EST us Maciel Olson MD LAB BLOOD ORDERABLES Final Resul t [facility] [address] [place] [address] * (ABNORMAL) Comprehensive metabolic panel (01/16/2025 4:47 AM EST) Glucose, Plasma 118(H) 74 - 99 mg/dL 01/16/2025 5:24 AM EST [facility] BUN, Plasma 45(H) 7 - 21 mg/dL 01/16/2025 5:24 AM EST [facility] Creatinine, Plasma 1.28(H) 0.70 - 1.20 mg/dL 01/16/2025 5:24 AM EST [facility] BUN/Creatinine Ratio 35 01/16/2025 5:24 AM EST [facility] Sodium, Plasma 138 136 - 145 mmol/L 01/16/2025 5:24 AM EST [facility] Potassium, Plasma 5.1(H) 3.6 - 4.9 mmol/L 01/16/2025 5:24 AM EST [facility] Chloride, Plasma 107 97 - 107 mmol/L 01/16/2025 5:24 AM EST [facility] CO2, Plasma 20(L) 22 - 29 mmol/L 01/16/2025 5:24 AM EST [facility] Anion Gap 11 6 - 16 mmol/L 01/16/2025 5:24 AM EST [facility] Total Calcium, Plasma 8.3(L) 8.9 - 10.2 mg/dL 01/16/2025 5:24 AM EST [facility] Total Protein 4.8(L) 6.3 - 7.9 g/dL 01/16/2025 5:24 AM EST [facility] Albumin, Plasma 2.7(L) 3.5 - 5.2 g/dL 01/16/2025 5:24 AM EST [facility] AST, Plasma 23 10 - 50 U/L 01/16/2025 5:24 AM EST [facility] ALT, Plasma 55(H) 10 - 50 U/L 01/16/2025 5:24 AM EST [facility] Alkaline Phosphatase, Plasma 93 40 - 115 U/L 01/16/2025 5:24 AM EST [facility] Total Bilirubin, Plasma 4.5(H) 0.2 - 1.1 mg/dL 01/16/2025 5:24 AM EST [facility] eGFRcr 69.9 mL/min/1.7 3m*2 01/16/2025 5:24 AM EST [facility] Comment:Reported eGFRcr in m L/min/1.73m2 is based the CKD-EPI 2020 equation that does not use a race coefficient. Blood Venous blood specimen / Unknown Venipuncture / Unknown 01/16/2025 4:47 AM EST 01/16/2025 4:56 AM EST us Maciel Olson MD LAB BLOOD ORDERABLES Final Resul t [facility] [address] [place] [address] * (ABNORMAL) CBC W/O Differential (01/16/2025 4:47 AM EST) WBC Count 8.27 3.70 - 10.30 10*3/uL LAB HEMATOLOGY METHOD 01/16/2025 5:03 AM EST [facility] RBC Count 2.56(L) 4.60 - 6.10 10*6/uL LAB HEMATOLOGY METHOD 01/16/2025 5:03 AM EST [facility] HGB 8.3(L) 13.7 - 17.5 g/dL LAB HEMATOLOGY METHOD 01/16/2025 5:03 AM EST [facility] HCT 26.1(L) 40.0 - 51.0 % LAB HEMATOLOGY METHOD 01/16/2025 5:03 AM EST [facility] Platelet Count 124(L) 155 - 369 10*3/uL LAB HEMATOLOGY METHOD 01/16/2025 5:03 AM EST [facility] MCV 102(H) 79 - 98 fL LAB HEMATOLOGY METHOD 01/16/2025 5:03 AM EST [facility] MCH 32.4(H) 26.0 - 32.0 pg LAB HEMATOLOGY METHOD 01/16/2025 5:03 AM EST [facility] MCHC 31.8 30.7 - 35.5 g/dL LAB HEMATOLOGY METHOD 01/16/2025 5:03 AM EST [facility] RDW 24.0(H) 11.5 - 14.5 % LAB HEMATOLOGY METHOD 01/16/2025 5:03 AM EST [facility] MPV 10.3 8.8 - 12.5 fL LAB HEMATOLOGY METHOD 01/16/2025 5:03 AM EST [facility] nRBC 0.0 <=0.0 per 100 WBCs LAB HEMATOLOGY METHOD 01/16/2025 5:03 AM EST [facility] Blood Venous blood specimen / Unknown Venipuncture / Unknown 01/16/2025 4:47 AM EST 01/16/2025 4:56 AM EST us Maciel Olson MD LAB BLOOD ORDERABLES Final Resul t Performing Organization Address [facility] de Phone Number [facility] [address] [place] [address] * (ABNORMAL) Prothrombin Time/INR (01/16/2025 4:47 AM EST) Prothrombin Time 14.6(H) 12.0 - 14.3 sec LAB COAGULATION METHOD 01/16/2025 5:22 AM EST [facility] INR 1.1 0.9 - 1.1 LAB COAGULATION METHOD 01/16/2025 5:22 AM EST [facility] Blood Venous blood specimen / Unknown Venipuncture / Unknown 01/16/2025 4:47 AM EST 01/16/2025 4:56 AM EST Narrative [facility] - 01/16/2025 5:22 AM EST OPTIMAL INR RANGES FOR PATIENT ON ORAL ANTICOAGULANT THERAPY Prevention of venous thromboembolism INR 2.0 to 3.0 In patients with heart disease: Atrial fibrillation INR 2.0 to 3.0 Valvular heart disease INR 2.0 to 3.0 Tissue heart valves INR 2.0 to 3.0 Mechanical prosthetic valves INR 2.5 to 3.5 Prevention of recurrent ME INR 2.5 to 3.5 us Maciel Olson MD LAB BLOOD ORDERABLES Final Resul t Performing Organization Address City/[facility]/ZIP Co de Phone Number [facility] [address] [place] [address] * (ABNORMAL) POCT glucose meter (01/15/2025 8:39 PM EST) Pathologist [facility] POCT Glucose 187(H) 74 - 99 mg/dL 01/15/2025 8:41 PM EST [facility] Comment:Accuracy of [...] for testing. Comment 01/15/2025 8:41 PM EST [facility] 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 Machine Operator Helper ID Medel, Dynjasmyne 01/15/2025 8:41 PM EST [facility] Device ID [id number] 01/15/2025 8:41 PM EST [facility] Specimen Type POC Capillary 01/15/2025 8:41 PM EST [facility] Blood Capillary blood specimen / Unknown 01/15/2025 8:39 PM EST 01/15/2025 8:41 PM EST Satnam Beckford MD LAB POINT OF CARE T EST DOCKED DEVICE UNSOLICITED RESULTS Final Result [facility] [address] [place] [address] * (ABNORMAL) POCT glucose meter (01/15/2025 5:07 PM EST) [facility] POCT Glucose 130(H) 74 - 99 mg/dL [...] 01/15/2025 5:24 PM EST [facility] 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 Machine Operator Helper ID Shonda Kimbrough 5:24 PM EST [facility] Device ID [id number] 01/15/2025 5:24 PM EST [facility] Specimen Type POC Capillary 01/15/2025 5:24 PM EST [facility] Blood Capillary blood specimen / Unknown 01/15/2025 5:07 PM EST 01/15/2025 5:24 PM EST Satnam Beckford MD LAB POINT OF CARE T EST DOCKED DEVICE UNSOLICITED RESULTS Final Result Performing Organization Address City/[facility]/ZIP Co de Phone Number [facility] [address] [place] [address] * (ABNORMAL) POCT glucose meter (01/15/2025 11:54 AM EST) POCT Glucose 105(H) 74 - 99 mg/dL [...] 01/15/2025 11:59 AM EST [facility] 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 Machine Operator Helper ID Shonda Kimbrough 11:59 AM EST [facility] Device ID [id number] 01/15/2025 11:59 AM EST [facility] Specimen Type POC Capillary 01/15/2025 11:59 AM EST [facility] Blood Capillary blood specimen / Unknown 01/15/2025 11:54 AM EST 01/15/2025 11:59 AM EST Satnam Beckford MD LAB POINT OF CARE T EST DOCKED DEVICE UNSOLICITED RESULTS Final Result [facility] [address] [place] [address] * (ABNORMAL) POCT glucose meter (01/15/2025 7:53 AM EST) POCT Glucose 159(H) 74 - 99 mg/dL 01/15/2025 7:55 AM EST [facility] Comment:Accuracy of [...] for testing. Comment 01/15/2025 7:55 AM EST [facility] 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 Machine Operator Helper ID Shonda Kimbrough 7:55 AM EST [facility] Device ID [id number] 01/15/2025 7:55 AM EST [facility] Specimen Type POC Capillary 01/15/2025 7:55 AM EST [facility] Blood Capillary blood specimen / Unknown 01/15/2025 7:53 AM EST 01/15/2025 7:55 AM EST us Satnam Beckford MD LAB POINT OF CARE T EST DOCKED DEVICE UNSOLICITED RESULTS Final Result Performing Organization Address City/[facility] de Phone Number [facility] [address] [place] [address] * Phosphorus (01/15/2025 5:00 AM EST) Phosphorus, Plasma 3.5 2.5 - 4.5 mg/dL 01/15/2025 6:15 AM EST [facility] Blood Venous blood specimen / Unknown Venipuncture / Unknown 01/15/2025 5:00 AM EST 01/15/2025 5:24 AM EST us Maciel Olson MD LAB BLOOD ORDERABLES Final Resul t [facility] [address] [place] [address] * Magnesium (01/15/2025 5:00 AM EST) Magnesium, Plasma 2.1 1.9 - 2.4 mg/dL 01/15/2025 6:15 AM EST [facility] Blood Venous blood specimen / Unknown Venipuncture / Unknown 01/15/2025 5:00 AM EST 01/15/2025 5:24 AM EST us Maciel Olsno MD LAB BLOOD ORDERABLES Final Resul t [facility] [address] [place] [address] * (ABNORMAL) Comprehensive metabolic panel (01/15/2025 5:00 AM EST) Glucose, Plasma 164(H) 74 - 99 mg/dL 01/15/2025 6:15 AM EST [facility] BUN, Plasma 39(H) 7 - 21 mg/dL 01/15/2025 6:15 AM EST [facility] Creatinine, Plasma 1.37(H) 0.70 - 1.20 mg/dL 01/15/2025 6:15 AM EST [facility] BUN/Creatinine Ratio 28 01/15/2025 6:15 AM EST [facility] Sodium, Plasma 140 136 - 145 mmol/L 01/15/2025 6:15 AM EST [facility] Potassium, Plasma 4.8 3.6 - 4.9 mmol/L 01/15/2025 6:15 AM EST [facility] Chloride, Plasma 108(H) 97 - 107 mmol/L 01/15/2025 6:15 AM EST [facility] CO2, Plasma 20(L) 22 - 29 mmol/L 01/15/2025 6:15 AM EST [facility] Anion Gap 12 6 - 16 mmol/L 01/15/2025 6:15 AM EST [facility] Total Calcium, Plasma 7.9(L) 8.9 - 10.2 mg/dL 01/15/2025 6:15 AM EST [facility] Total Protein 4.6(L) 6.3 - 7.9 g/dL 01/15/2025 6:15 AM EST [facility] Albumin, Plasma 2.5(L) 3.5 - 5.2 g/dL 01/15/2025 6:15 AM EST [facility] AST, Plasma 21 10 - 50 U/L 01/15/2025 6:15 AM EST [facility] ALT, Plasma 51(H) 10 - 50 U/L 01/15/2025 6:15 AM EST [facility] Alkaline Phosphatase, Plasma 95 40 - 115 U/L 01/15/2025 6:15 AM EST [facility] Total Bilirubin, Plasma 5.6(H) 0.2 - 1.1 mg/dL 01/15/2025 6:15 AM EST [facility] eGFRcr 64.4 mL/min/1.7 3m*2 01/15/2025 6:15 AM EST [facility] Comment:Reported eGFRcr in m L/min/1.73m2 is based the CKD-EPI 2020 equation that does not use a race coefficient. Blood Venous blood specimen / Unknown Venipuncture / Unknown 01/15/2025 5:00 AM EST 01/15/2025 5:24 AM EST us Maciel Olson MD LAB BLOOD ORDERABLES Final Resul t [facility] [address] [place] [address] * (ABNORMAL) CBC W/O Differential (01/15/2025 5:00 AM EST) WBC Count 9.22 3.70 - 10.30 10*3/uL LAB HEMATOLOGY METHOD 01/15/2025 5:24 AM EST [facility] RBC Count 2.63(L) 4.60 - 6.10 10*6/uL LAB HEMATOLOGY METHOD 01/15/2025 5:24 AM EST [facility] HGB 8.2(L) 13.7 - 17.5 g/dL LAB HEMATOLOGY METHOD 01/15/2025 5:24 AM EST [facility] HCT 26.4(L) 40.0 - 51.0 % LAB HEMATOLOGY METHOD 01/15/2025 5:24 AM EST [facility] Platelet Count 94(L) 155 - 369 10*3/uL LAB HEMATOLOGY METHOD 01/15/2025 5:24 AM EST [facility] MCV 100(H) 79 - 98 fL LAB HEMATOLOGY METHOD 01/15/2025 5:24 AM EST [facility] MCH 31.2 26.0 - 32.0 pg LAB HEMATOLOGY METHOD 01/15/2025 5:24 AM EST [facility] MCHC 31.1 30.7 - 35.5 g/dL LAB HEMATOLOGY METHOD 01/15/2025 5:24 AM EST [facility] RDW 24.6(H) 11.5 - 14.5 % LAB HEMATOLOGY METHOD 01/15/2025 5:24 AM EST [facility] MPV 11.2 8.8 - 12.5 fL LAB HEMATOLOGY METHOD 01/15/2025 5:24 AM EST [facility] nRBC 0.0 <=0.0 per 100 WBCs LAB HEMATOLOGY METHOD 01/15/2025 5:24 AM EST [facility] Blood Venous blood specimen / Unknown Venipuncture / Unknown 01/15/2025 5:00 AM EST 01/15/2025 5:16 AM EST us Maciel Olson MD LAB BLOOD ORDERABLES Final Resul t Performing Organization Address [facility] de Phone Number [facility] [address] [place] [address] * (ABNORMAL) Prothrombin Time/INR (01/15/2025 5:00 AM EST) Prothrombin Time 15.1(H) 12.0 - 14.3 sec LAB COAGULATION METHOD 01/15/2025 5:49 AM EST [facility] INR 1.2(H) 0.9 - 1.1 LAB COAGULATION METHOD 01/15/2025 5:49 AM EST [facility] Blood Venous blood specimen / Unknown Venipuncture / Unknown 01/15/2025 5:00 AM EST 01/15/2025 5:16 AM EST Narrative [facility] - 01/15/2025 5:49 AM EST OPTIMAL INR RANGES FOR PATIENT ON ORAL ANTICOAGULANT THERAPY Prevention of venous thromboembolism INR 2.0 to 3.0 In patients with heart disease: Atrial fibrillation INR 2.0 to 3.0 Valvular heart disease INR 2.0 to 3.0 Tissue heart valves INR 2.0 to 3.0 Mechanical prosthetic valves INR 2.5 to 3.5 Prevention of recurrent ME INR 2.5 to 3.5 us Maciel Olson MD LAB BLOOD ORDERABLES Final Resul t Performing Organization Address City/[facility]/ZIP Co de Phone Number [facility] [address] [place] [address] * Tacrolimus (01/15/2025 5:00 AM EST) Tacrolimus 7.5 4.0 - 17.0 ng/mL 01/15/2025 8:01 AM EST [facility] Comment: Tacrolimus therapeutic range: Initial (<3 mo.) Maintenance Kidney 8-13 ng/mL 4-8 ng/mL Liver 8-13 ng/mL 4-8 ng/mL Heart 8-15 ng/mL 7-13 ng/mL Lung;Heart/Lung 8-17 ng/mL 8-13 ng/mL Blood Venous blood specimen / Unknown Venipuncture / Unknown 01/15/2025 5:00 AM EST 01/15/2025 5:16 AM EST Narrative [facility] - 01/15/2025 8:01 AM EST Test performed by LC-MS/MS at the [facility]. This test was developed and its performance characteristics determined by [facility]. It has not been cleared or approved by the FDA. The laboratory is regulated under CLIA as qualified to perform high-complexity testing. This test is used for clinical purposes. Test performed by LC-MS/MS at the [facility]. This test was developed and its performance characteristics determined by [facility]. It has not been cleared or approved by the FDA. The laboratory is regulated under CLIA as qualified to perform high-complexity testing. This test is used for clinical purposes. us Maciel Olson MD LAB BLOOD ORDERABLES Final Resul t [facility] [address] [place] [address] * (ABNORMAL) POCT glucose meter (01/14/2025 8:25 PM EST) POCT Glucose 182(H) 74 - 99 mg/dL 01/14/2025 8:26 PM EST [facility] Comment:Accuracy of a glucos e result [...] for testing. Comment 01/14/2025 8:26 PM EST [facility] 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 Machine Operator Helper ID Elver Medel 01/14/2025 8:26 PM EST [facility]ALTH[facility] LAB Device ID [id number] 01/14/2025 8:26 PM EST [facility] Specimen Type POC Capillary 01/14/2025 8:26 PM EST [facility] Blood Capillary blood specimen / Unknown 01/14/2025 8:25 PM EST 01/14/2025 8:26 PM EST Satnam Beckford MD LAB POINT OF CARE T EST DOCKED DEVICE UNSOLICITED RESULTS Final Result Performing Organization Address [facility] Co de Phone Number [facility] [address] [place] [address] * (ABNORMAL) POCT glucose meter (01/14/2025 5:01 PM EST) [facility] Signature POCT Glucose 171(H) 74 - 99 mg/dL [...] for testing. Comment 01/14/2025 5:02 PM EST [facility] 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 Machine Operator Helper ID Ritu Ma 5:02 PM EST [facility] Device ID [id number] 01/14/2025 5:02 PM EST [facility] Specimen Type POC Capillary 01/14/2025 5:02 PM EST [facility] Blood Capillary blood specimen / Unknown 01/14/2025 5:01 PM EST 01/14/2025 5:02 PM EST Satnam Beckford MD LAB POINT OF CARE T EST DOCKED DEVICE UNSOLICITED RESULTS Final Result Performing Organization Address City/[facility]/ZIP Co de Phone Number [facility] [address] [place] [address] * (ABNORMAL) POCT glucose meter (01/14/2025 11:29 [...] 01/14/2025 11:31 AM EST [facility] 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 Machine Operator Helper ID Ritu Ma 11:31 AM EST [facility] Device ID [id number] 01/14/2025 11:31 AM EST [facility] Specimen Type POC Capillary 01/14/2025 11:31 AM EST [facility] Blood Capillary blood specimen / Unknown 01/14/2025 11:29 AM EST 01/14/2025 11:31 AM EST Satnam Beckford MD LAB POINT OF CARE T EST DOCKED DEVICE UNSOLICITED RESULTS Final Result Performing Organization Address City/State/[facility] de Phone Number [facility] [address] [place] [address] * (ABNORMAL) POCT glucose meter (01/14/2025 7:59 AM EST) Pathologist [facility] POCT Glucose 140(H) 74 - 99 mg/dL 01/14/2025 8:00 AM EST [facility] Comment:Accuracy of [...] for testing. Comment 01/14/2025 8:00 AM EST [facility] 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 Machine Operator Helper ID Ritu Ma 8:00 AM EST [facility] Device ID [id number] 01/14/2025 8:00 AM EST [facility] Specimen Type POC Capillary 01/14/2025 8:00 AM EST [facility] Blood Capillary blood specimen / Unknown 01/14/2025 7:59 AM EST 01/14/2025 8:00 AM EST Satnam Beckford MD LAB POINT OF CARE T EST DOCKED DEVICE UNSOLICITED RESULTS Final Result Performing Organization Address City/[facility]/ZIP Co de Phone Number [facility] [address] [place] [address] * Phosphorus (01/14/2025 4:56 AM EST) Phosphorus, Plasma 3.4 2.5 - 4.5 mg/dL 01/14/2025 5:39 AM EST [facility] Blood Venous blood specimen / Unknown Venipuncture / Unknown 01/14/2025 4:56 AM EST 01/14/2025 5:03 AM EST Maciel Olson MD LAB BLOOD ORDERABLES Final Resul t Performing Organization Address City/[facility]/ZIP Co de Phone Number [facility] [address] [place] [address] * Magnesium (01/14/2025 4:56 AM EST) Magnesium, Plasma 2.1 1.9 - 2.4 mg/dL 01/14/2025 5:39 AM EST [facility] Blood Venous blood specimen / Unknown Venipuncture / Unknown 01/14/2025 4:56 AM EST 01/14/2025 5:03 AM EST Maciel Olson MD LAB BLOOD ORDERABLES Final Resul t Performing Organization Address City/[facility]/ZIP Co de Phone Number [facility] [address] [place] [address] * (ABNORMAL) Comprehensive metabolic panel (01/14/2025 4:56 AM EST) Glucose, Plasma 143(H) 74 - 99 mg/dL 01/14/2025 5:39 AM EST [facility] BUN, Plasma 29(H) 7 - 21 mg/dL 01/14/2025 5:39 AM EST [facility] Creatinine, Plasma 1.50(H) 0.70 - 1.20 mg/dL 01/14/2025 5:39 AM [facility] BUN/Creatinine Ratio 19 01/14/2025 5:39 AM [facility] Sodium, Plasma 137 136 - 145 mmol/L 01/14/2025 5:39 AM [facility] Potassium, Plasma 4.6 3.6 - 4.9 mmol/L 01/14/2025 5:39 AM [facility] Chloride, Plasma 107 97 - 107 mmol/L 01/14/2025 5:39 AM [facility] CO2, Plasma 20(L) 22 - 29 mmol/L 01/14/2025 5:39 AM [facility] Anion Gap 10 6 - 16 mmol/L 01/14/2025 5:39 AM [facility] Total Calcium, Plasma 7.6(L) 8.9 - 10.2 mg/dL 01/14/2025 5:39 AM [facility] Total Protein 4.7(L) 6.3 - 7.9 g/dL 01/14/2025 5:39 AM [facility] Albumin, Plasma 2.6(L) 3.5 - 5.2 g/dL 01/14/2025 5:39 AM [facility] AST, Plasma 24 10 - 50 U/L 01/14/2025 5:39 AM [facility] ALT, Plasma 54(H) 10 - 50 U/L 01/14/2025 5:39 AM [facility] Alkaline Phosphatase, Plasma 96 40 - 115 U/L 01/14/2025 5:39 AM [facility] Total Bilirubin, Plasma 8.9(H) 0.2 - 1.1 mg/dL 01/14/2025 5:39 AM [facility] eGFRcr 57.8 mL/min/1.7 3m*2 01/14/2025 5:39 AM [facility] Comment:Reported eGFRcr in m L/min/1.73m2 is based the CKD-EPI 2020 equation that does not use a race coefficient. Blood Venous blood specimen / Unknown Venipuncture / Unknown 01/14/2025 4:56 AM EST 01/14/2025 5:03 AM EST us Maciel Olson MD LAB BLOOD ORDERABLES Final Resul t [facility] [address] [place] [address] * (ABNORMAL) CBC W/O Differential (01/14/2025 4:56 AM EST) WBC Count 5.47 3.70 - 10.30 10*3/uL LAB HEMATOLOGY METHOD 01/14/2025 5:12 AM EST [facility] RBC Count 2.57(L) 4.60 - 6.10 10*6/uL LAB HEMATOLOGY METHOD 01/14/2025 5:12 AM EST [facility] HGB 8.4(L) 13.7 - 17.5 g/dL LAB HEMATOLOGY METHOD 01/14/2025 5:12 AM EST [facility] HCT 25.4(L) 40.0 - 51.0 % LAB HEMATOLOGY METHOD 01/14/2025 5:12 AM EST [facility] Platelet Count 76(L) 155 - 369 10*3/uL LAB HEMATOLOGY METHOD 01/14/2025 5:12 AM EST [facility] MCV 99(H) 79 - 98 fL LAB HEMATOLOGY METHOD 01/14/2025 5:12 AM EST [facility] MCH 32.7(H) 26.0 - 32.0 pg LAB HEMATOLOGY METHOD 01/14/2025 5:12 AM EST [facility] MCHC 33.1 30.7 - 35.5 g/dL LAB HEMATOLOGY METHOD 01/14/2025 5:12 AM EST [facility] RDW 23.9(H) 11.5 - 14.5 % LAB HEMATOLOGY METHOD 01/14/2025 5:12 AM EST [facility] MPV 11.3 8.8 - 12.5 fL LAB HEMATOLOGY METHOD 01/14/2025 5:12 AM EST [facility] nRBC 0.0 <=0.0 per 100 WBCs LAB HEMATOLOGY METHOD 01/14/2025 5:12 AM EST [facility] Blood Venous blood specimen / Unknown Venipuncture / Unknown 01/14/2025 4:56 AM EST 01/14/2025 5:02 AM EST Maciel Olson MD LAB BLOOD ORDERABLES Final Resul t Performing Organization Address [facility] Co de Phone Number [facility] [address] [place] [address] * (ABNORMAL) Prothrombin Time/INR (01/14/2025 4:56 AM EST) Prothrombin Time 15.0(H) 12.0 - 14.3 sec LAB COAGULATION METHOD 01/14/2025 5:24 AM EST [facility] INR 1.2(H) 0.9 - 1.1 LAB COAGULATION METHOD 01/14/2025 5:24 AM EST [facility] Blood Venous blood specimen / Unknown Venipuncture / Unknown 01/14/2025 4:56 AM EST 01/14/2025 5:02 AM EST Narrative [facility] - 01/14/2025 5:24 AM EST OPTIMAL INR RANGES FOR PATIENT ON ORAL ANTICOAGULANT THERAPY Prevention of venous thromboembolism INR 2.0 to 3.0 In patients with heart disease: Atrial fibrillation INR 2.0 to 3.0 Valvular heart disease INR 2.0 to 3.0 Tissue heart valves INR 2.0 to 3.0 Mechanical prosthetic valves INR 2.5 to 3.5 Prevention of recurrent ME INR 2.5 to 3.5 Maciel Olson MD LAB BLOOD ORDERABLES Final Resul t Performing Organization Address City/[facility] Co de Phone Number [facility] [address] [place] [address] * Tacrolimus (01/14/2025 4:56 AM EST) Tacrolimus 8.1 4.0 - 17.0 ng/mL 01/14/2025 8:11 AM EST [facility] Blood Venous blood specimen / Unknown Venipuncture / Unknown 01/14/2025 4:56 AM EST 01/14/2025 5:02 AM EST Narrative [facility] - 01/14/2025 8:11 AM EST Test performed by LC-MS/MS at the [facility]. This test was developed and its performance characteristics determined by [facility]. It has not been cleared or approved by the FDA. The laboratory is regulated under CLIA as qualified to perform high-complexity testing. This test is used for clinical purposes. Test performed by LC-MS/MS at the [facility]. This test was developed and its performance characteristics determined by [facility]. It has not been cleared or approved by the FDA. The laboratory is regulated under CLIA as qualified to perform high-complexity testing. This test is used for clinical purposes. Maciel Olson MD LAB BLOOD ORDERABLES Final Resul t Performing Organization Address City/[facility]/[place] [address] * (ABNORMAL) POCT glucose meter (01/13/2025 7:34 PM EST) POCT Glucose 199(H) 74 - 99 mg/dL 01/13/2025 7:36 PM EST [facility] Comment:Accuracy of a glucos e result [...] for testing. Comment 01/13/2025 7:36 PM EST [facility] 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 Machine Operator Helper ID Katarina Nowak 01/14/20 25 7:36 PM EST [facility] Device ID [id number] 01/13/2025 7:36 PM EST [facility] Specimen Type POC Capillary 01/13/2025 7:36 PM EST [facility] Blood Capillary blood specimen / Unknown 01/13/2025 7:34 PM EST 01/13/2025 7:36 PM EST Satnam Beckford MD LAB POINT OF CARE T EST DOCKED DEVICE UNSOLICITED RESULTS Final Result [facility] [address] [place] [address] * (ABNORMAL) POCT glucose meter (01/13/2025 6:12 [...] Comment 01/13/2025 6:14 PM EST [facility] 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 Machine Operator Helper ID Tila Garcia 6:14 PM EST [facility] Device ID [id number] 01/13/2025 6:14 PM EST [facility] Specimen Type POC Capillary 01/13/2025 6:14 PM EST [facility] Blood Capillary blood specimen / Unknown 01/13/2025 6:12 PM EST 01/13/2025 6:14 PM EST us Satnam Beckford MD LAB POINT OF CARE T EST DOCKED DEVICE UNSOLICITED RESULTS Final Result Performing Organization Address City/State/[facility] Co de Phone Number [facility] [address] [place] [address] * US Guided Needle Biopsy Liver (01/13/2025 [...] transplant with elevated LFTs and hyperbilirubinemia. TECHNIQUE: Certified Social Workers In Health Care: Ghislaine Borges APRN Secondary 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 Machine Operator Helper: None. Medications: IV conscious sedation with continuous physiologic monitoring provided by a qualified healthcare professional using Versed 1 mg IV and Fentanyl 50mcg IV. 1% Lidocaine SQ. Antibiotics: N/A Duration of Conscious Sedation: Time out: 1559 Procedure: After discussion of risks and benefits, [...] liver transplant with elevated LFTs andhyperbilirubinemia. TECHNIQUE: Certified Social Workers In Health Care: Ghislaine Borges APRN Secondary 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 Machine Operator Helper: None. Medications: IV conscious sedation with continuous physiologic monitoringprovided by a qualified healthcare professional using Versed 1 mg IV andFentanyl 50mcg IV. 1% Lidocaine SQ. Antibiotics: N/A Duration of Conscious Sedation: Time out: 1559 Procedure: After discussion of risks and benefits, [...] Riley Wallis MD on 01/15/2025 7:12 AM us Vanda Maguire APRN, DNP IMG US PROCEDURES Tami l Result * Surgical Pathology Exam (01/13/2025 4:16 PM EST) Case Report Surgical Pathology Case: [id number] Authorizing Provider: Satnam Beckford MD Collected: 01/13/2025 1616 Ordering Location: [facility] Inpatient Received: 01/13/2025 2022 Pathologist: Danny Pichardo MD Specimen: Liver 5:27 PM EST [facility] Final Diagnosis A. LIVER, ALLOGRAFT, CORE NEEDLE BIOPSY: - ACUTE CHOLANGITIS WITH ASSOCIATED CHOLESTASIS. - ACUTE CELLULAR REJECTION WITH TREATMENT EFFECT. - SEE COMMENT AND MICROSCOPIC DESCRIPTION. 5:27 PM EST [facility] at 1727 EST Comment Preliminary results were communicated to Dr. Beckford, via e-mail by Dr. Pichardo on 01/14/2025. 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 5:27 PM EST [facility] Special and Immunohistochemical Stains Special Stain: A1-4 Michael Trichrome Stain: performed and interpreted. IHC: A1-5 CMV: negative staining. A1-6 CK7: performed and interpreted. A2-2 CMV: negative staining. A2-3 CK7: performed and interpreted. All controls show appropriate reactivity. All immunohistochemist ry, in situ hybridization, and histochemical tests were developed by and are performed at the [facility], [address] [place] [address]. All tests reported here, except those addressing [...] negativity on decalcified specimens. 5 5:27 PM EST [facility] Gross Description A. LIVER Received in formalin labeled l iver , are 3 yellow-green soft tissue cores that range from 1.4-1.6 cm in length and up to 0.1 cm in diameter. Entirely submitted in cassettes A1 to A2. Cold Time: 0 Adilene B Pettey 5 5:27 PM EST [facility] Note: A resident was involved in the service. I attest I examined the relevant preparations for the specimens and confirmed the diagnosis or interpretation. 5 5:27 PM EST [facility] Tissue Liver structure / Unknown Non-blood Collection / Unknown 01/13/2025 4:16 PM EST 01/13/2025 4:59 PM EST Comment:TAVERA path please us Satnam Beckford MD LAB PATHOLOGY ORDERABLES Fi nal Result [facility] [address] [place] [address] * (ABNORMAL) POCT glucose meter (01/13/2025 11:10 AM EST) POCT Glucose 116(H) 74 - 99 mg/dL 01/13/2025 11:12 AM EST [facility] Comment:Accuracy of a glucos e result [...] for testing. Comment 01/13/2025 11:12 AM EST [facility] 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 Machine Operator Helper ID Tila Garcia 11:12 AM EST [facility] Device ID [id number] 01/13/2025 11:12 AM EST [facility] Specimen Type POC Capillary 01/13/2025 11:12 AM EST [facility] Blood Capillary blood specimen / Unknown 01/13/2025 11:10 AM EST 01/13/2025 11:12 AM EST Satnam Beckford MD LAB POINT OF CARE T EST DOCKED DEVICE UNSOLICITED RESULTS Final Result [facility] [address] [place] [address] * Herpes Simplex Virus by PCR (Serum) (01/13/2025 10:59 AM EST) Herpes Simplex Virus 1 (HSV-1) PCR Result Not Detected Not Detected 01/14/2025 2:21 PM EST [facility] Herpes Simplex Virus 2 (HSV-2) PCR Result Not Detected Not Detected 01/14/2025 2:21 PM EST [facility] Serum Venous blood specimen / Unknown 01/13/2025 10:59 AM EST 01/13/2025 1:47 PM EST Narrative [facility] - 01/14/2025 2:21 PM EST This PCR assay was developed and its performance characteristics determined by [facility] as appropriate for clinical purposes. This assay has not been cleared or approved by the FDA, but is performed in a CLIA regulated laboratory that is qualified to perform high-complexity testing. Satnam Beckford MD LAB MICROBIOLOGY - GENERAL ORDERABLES Final Result [facility] [address] [place] [id number] * Shailesh Suárez Virus (EBV) Quantitative PCR (01/13/2025 10:59 AM EST) Shailesh Suárez Virus, Blood, Quant DNA Interpretation Not Detected Not Detected 01/14/2025 8:41 AM EST [facility] Blood Venous blood specimen / Unknown Venipuncture / Unknown 01/13/2025 10:59 AM EST 01/13/2025 11:13 AM EST Narrative [facility] - 01/14/2025 8:41 AM EST [...] developed and it's performance characteristics determined by [facility] as appropriate for clinical purposes. [...] developed and it's performance characteristics determined by [facility] as appropriate for clinical purposes. This assay has not been cleared or approved by the FDA, but is performed in a CLIA regulated laboratory that is qualified to perform high-complexity testing. us Satnam Beckford MD LAB BLOOD ORDERABLES Final Result [facility] [address] [place] [address] * Cytomegalovirus (CMV) Quantitative PCR (01/13/2025 10:59 AM EST) Cytomegalovirus (CMV) Quantitative Interpretation Not Detected Not Detected 01/14/2025 2:52 PM EST [facility] Blood Venous blood specimen / Unknown Venipuncture / Unknown 01/13/2025 10:59 AM EST 01/13/2025 11:13 AM EST Narrative [facility] - 01/14/2025 2:52 PM EST The [facility] M2000 CMV test is a Real Time [...] Beckford MD LAB BLOOD ORDERABLES Final Result [facility] [address] [place] [address] * POCT glucose meter (01/13/2025 8:20 AM EST) POCT Glucose 97 74 - 99 mg/dL 01/13/2025 8:21 AM EST [facility] Comment:Accuracy of a glucos e result [...] for testing. Comment 01/13/2025 8:21 AM EST [facility] 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 Machine Operator Helper ID Tila Garcia 8:21 AM EST [facility] Device ID [id number] 01/13/2025 8:21 AM EST [facility] Specimen Type POC Capillary 01/13/2025 8:21 AM EST [facility] Blood Capillary blood specimen / Unknown 01/13/2025 8:20 AM EST 01/13/2025 8:21 AM EST Satnam Beckford MD LAB POINT OF CARE T EST DOCKED DEVICE UNSOLICITED RESULTS Final Result Performing Organization Address [facility] Co de Phone Number [facility] [address] [place] [address] * (ABNORMAL) POCT glucose meter (01/13/2025 6:36 AM EST) [facility] POCT Glucose 116(H) 74 - 99 mg/dL 01/13/2025 6:38 AM EST [facility] Comment:Accuracy of [...] for testing. Comment 01/13/2025 6:38 AM EST [facility] 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 Machine Operator Helper ID Phuong Hesterica 01/13/2025 6:38 AM EST [facility] Device ID [id number] 01/13/2025 6:38 AM EST [facility] Specimen Type POC Capillary 01/13/2025 6:38 AM EST [facility] Blood Capillary blood specimen / Unknown 01/13/2025 6:36 AM EST 01/13/2025 6:38 AM EST Satnam Beckford MD LAB POINT OF CARE T EST DOCKED DEVICE UNSOLICITED RESULTS Final Result Performing Organization Address [facility] Co de Phone Number [facility] [address] [place] [address] * POCT glucose meter (01/13/2025 5:52 AM EST) [facility] POCT Glucose 88 74 - 99 mg/dL 01/13/2025 5:54 AM EST [facility] Comment:Accuracy of [...] for testing. Comment 01/13/2025 5:54 AM EST [facility] 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 Machine Operator Helper ID Mir Andreina 01/13/2025 5:54 AM EST [facility] Device ID [id number] 01/13/2025 5:54 AM EST [facility] Specimen Type POC Capillary 01/13/2025 5:54 AM EST [facility] Blood Capillary blood specimen / Unknown 01/13/2025 5:52 AM EST 01/13/2025 5:54 AM EST us Satnam Beckford MD LAB POINT OF CARE T EST DOCKED DEVICE UNSOLICITED RESULTS Final Result Performing Organization Address City/[facility]/ZIP Co de Phone Number [facility] [address] [place] [address] * (ABNORMAL) Bilirubin, direct (01/13/2025 4:43 AM EST) Direct Bilirubin, Plasma 8.3(H) <=0.3 mg/dL 01/13/2025 11:13 AM EST [facility] Blood Venous blood specimen / Unknown Venipuncture / Unknown 01/13/2025 4:43 AM EST 01/13/2025 4:51 AM EST us Félix Simmons APRN, DNP LAB BLOOD ORDERA BLES Final Result Performing Organization Address City/[facility]/[place] [address] * Phosphorus (01/13/2025 4:43 AM EST) Phosphorus, Plasma 3.3 2.5 - 4.5 mg/dL 01/13/2025 5:21 AM EST [facility] Blood Venous blood specimen / Unknown Venipuncture / Unknown 01/13/2025 4:43 AM EST 01/13/2025 4:51 AM EST us Maciel Olson MD LAB BLOOD ORDERABLES Final Resul t Performing Organization Address City/[facility]/ZIP Co de Phone Number [facility] [address] [place] [address] * Magnesium (01/13/2025 4:43 AM EST) Magnesium, Plasma 2.1 1.9 - 2.4 mg/dL 01/13/2025 5:21 AM EST [facility] Blood Venous blood specimen / Unknown Venipuncture / Unknown 01/13/2025 4:43 AM EST 01/13/2025 4:51 AM EST us Maciel Olson MD LAB BLOOD ORDERABLES Final Resul t [facility] [address] [place] [address] * (ABNORMAL) Comprehensive metabolic panel (01/13/2025 4:43 AM EST) Glucose, Plasma 88 74 - 99 mg/dL 01/13/2025 5:21 AM EST [facility] BUN, Plasma 26(H) 7 - 21 mg/dL 01/13/2025 5:21 AM EST [facility] Creatinine, Plasma 1.73(H) 0.70 - 1.20 mg/dL 01/13/2025 5:21 AM EST [facility] BUN/Creatinine Ratio 15 01/13/2025 5:21 AM EST [facility] Sodium, Plasma 138 136 - 145 mmol/L 01/13/2025 5:21 AM EST [facility] Potassium, Plasma 3.9 3.6 - 4.9 mmol/L 01/13/2025 5:21 AM EST [facility] Chloride, Plasma 105 97 - 107 mmol/L 01/13/2025 5:21 AM EST [facility] CO2, Plasma 21(L) 22 - 29 mmol/L 01/13/2025 5:21 AM EST [facility] Anion Gap 12 6 - 16 mmol/L 01/13/2025 5:21 AM EST [facility] Total Calcium, Plasma 7.7(L) 8.9 - 10.2 mg/dL 01/13/2025 5:21 AM EST [facility] Total Protein 4.5(L) 6.3 - 7.9 g/dL 01/13/2025 5:21 AM EST [facility] Albumin, Plasma 2.4(L) 3.5 - 5.2 g/dL 01/13/2025 5:21 AM EST [facility] AST, Plasma 28 10 - 50 U/L 01/13/2025 5:21 AM EST [facility] ALT, Plasma 60(H) 10 - 50 U/L 01/13/2025 5:21 AM EST [facility] Alkaline Phosphatase, Plasma 103 40 - 115 U/L 01/13/2025 5:21 AM EST [facility] Total Bilirubin, Plasma 11.0(H) 0.2 - 1.1 mg/dL 01/13/2025 5:21 AM EST [facility] eGFRcr 48.7 mL/min/1.7 3m*2 01/13/2025 5:21 AM EST [facility] Comment:Reported eGFRcr in m L/min/1.73m2 is based the CKD-EPI 2020 equation that does not use a race coefficient. Blood Venous blood specimen / Unknown Venipuncture / Unknown 01/13/2025 4:43 AM EST 01/13/2025 4:51 AM EST us Maciel Olson MD LAB BLOOD ORDERABLES Final Resul t [facility] [address] [place] [address] * (ABNORMAL) CBC W/O Differential (01/13/2025 4:43 AM EST) WBC Count 5.82 3.70 - 10.30 10*3/uL LAB HEMATOLOGY METHOD 01/13/2025 4:59 AM EST [facility] RBC Count 2.61(L) 4.60 - 6.10 10*6/uL LAB HEMATOLOGY METHOD 01/13/2025 4:59 AM EST [facility] HGB 8.5(L) 13.7 - 17.5 g/dL LAB HEMATOLOGY METHOD 01/13/2025 4:59 AM EST [facility] HCT 25.6(L) 40.0 - 51.0 % LAB HEMATOLOGY METHOD 01/13/2025 4:59 AM EST [facility] Platelet Count 54(L) 155 - 369 10*3/uL LAB HEMATOLOGY METHOD 01/13/2025 4:59 AM EST [facility] MCV 98 79 - 98 fL LAB HEMATOLOGY METHOD 01/13/2025 4:59 AM EST [facility] MCH 32.6(H) 26.0 - 32.0 pg LAB HEMATOLOGY METHOD 01/13/2025 4:59 AM EST [facility] MCHC 33.2 30.7 - 35.5 g/dL LAB HEMATOLOGY METHOD 01/13/2025 4:59 AM EST [facility] RDW 23.8(H) 11.5 - 14.5 % LAB HEMATOLOGY METHOD 01/13/2025 4:59 AM EST [facility] MPV 11.0 8.8 - 12.5 fL LAB HEMATOLOGY METHOD 01/13/2025 4:59 AM EST [facility] nRBC 0.0 <=0.0 per 100 WBCs LAB HEMATOLOGY METHOD 01/13/2025 4:59 AM EST [facility] Blood Venous blood specimen / Unknown Venipuncture / Unknown 01/13/2025 4:43 AM EST 01/13/2025 4:49 AM EST us Maciel Olson MD LAB BLOOD ORDERABLES Final Resul t [facility] [address] [place] [address] * (ABNORMAL) Prothrombin Time/INR (01/13/2025 4:43 AM EST) Prothrombin Time 14.6(H) 12.0 - 14.3 sec LAB COAGULATION METHOD 01/13/2025 5:18 AM EST [facility] INR 1.1 0.9 - 1.1 LAB COAGULATION METHOD 01/13/2025 5:18 AM EST [facility] Blood Venous blood specimen / Unknown Venipuncture / Unknown 01/13/2025 4:43 AM EST 01/13/2025 4:51 AM EST Narrative [facility] - 01/13/2025 5:18 AM EST OPTIMAL INR RANGES FOR PATIENT ON ORAL ANTICOAGULANT THERAPY Prevention of venous thromboembolism INR 2.0 to 3.0 In patients with heart disease: Atrial fibrillation INR 2.0 to 3.0 Valvular heart disease INR 2.0 to 3.0 Tissue heart valves INR 2.0 to 3.0 Mechanical prosthetic valves INR 2.5 to 3.5 Prevention of recurrent ME INR 2.5 to 3.5 Maciel Olson MD LAB BLOOD ORDERABLES Final Resul t Performing Organization Address [facility] Co de Phone Number [facility] [address] [place] [address] * Tacrolimus (01/13/2025 4:43 AM EST) Tacrolimus 8.2 4.0 - 17.0 ng/mL 01/13/2025 8:17 AM EST [facility] Blood Venous blood specimen / Unknown Venipuncture / Unknown 01/13/2025 4:43 AM EST 01/13/2025 4:49 AM EST Narrative [facility] - 01/13/2025 8:17 AM EST Test performed by LC-MS/MS at the [facility]. This test was developed and its performance characteristics determined by [facility]. It has not been cleared or approved by the FDA. The laboratory is regulated under CLIA as qualified to perform high-complexity testing. This test is used for clinical purposes. Test performed by LC-MS/MS at the [facility]. This test was developed and its performance characteristics determined by [facility]. It has not been cleared or approved by the FDA. The laboratory is regulated under CLIA as qualified to perform high-complexity testing. This test is used for clinical purposes. Maciel Olson MD LAB BLOOD ORDERABLES Final Resul t Performing Organization Address [facility] Co de Phone Number [facility] [address] [place] [address] * POCT glucose meter (2025 7:24 PM EST) POCT Glucose 98 74 - 99 mg/dL 2025 7:26 PM EST [facility] Comment:Accuracy of a glucos e result [...] for testing. Comment 2025 7:26 PM EST [facility] 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 Machine Operator Helper ID Katarina Nowak 01/13/20 7:26 PM EST [facility] Device ID [id number] 2025 7:26 PM EST [facility] Specimen Type POC Capillary 2025 7:26 PM EST [facility] Blood Capillary blood specimen / Unknown 2025 7:24 PM EST 2025 7:26 PM EST Satnam Beckford MD LAB POINT OF CARE T EST DOCKED DEVICE UNSOLICITED RESULTS Final Result Performing Organization Address City/[facility]/ZIP Co de Phone Number [facility] [address] [place] [address] * (ABNORMAL) POCT glucose meter (2025 5:10 PM EST) POCT Glucose 134(H) 74 - 99 mg/dL 2025 5:12 PM EST [facility] Comment:Accuracy of [...] Comment 2025 5:12 PM EST [facility] 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 Machine Operator Helper ID Ritu Ma 5:12 PM EST [facility] Device ID [id number] 2025 5:12 PM EST [facility] Specimen Type POC Capillary 2025 5:12 PM EST [facility] Blood Capillary blood specimen / Unknown 2025 5:10 PM EST 2025 5:12 PM EST Satnam Beckford MD LAB POINT OF CARE T EST DOCKED DEVICE UNSOLICITED RESULTS Final Result [facility] [address] [place] [address] * (ABNORMAL) POCT glucose meter (2025 2:13 PM EST) [facility] POCT Glucose 110(H) 74 - 99 mg/dL [...] for testing. Comment 2025 2:15 PM EST [facility] 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 Machine Operator Helper ID Dominic Canchola 2025 2:15 PM EST [facility] Device ID [id number] 2025 2:15 PM EST [facility] Specimen Type POC Capillary 2025 2:15 PM EST [facility] Blood Capillary blood specimen / Unknown 2025 2:13 PM EST 2025 2:15 PM EST Satnam Beckford MD LAB POINT OF CARE T EST DOCKED DEVICE UNSOLICITED RESULTS Final Result Performing Organization Address City/State/[facility] Co de Phone Number [facility] [address] [place] [address] * (ABNORMAL) POCT glucose meter (2025 1:32 PM EST) [facility] POCT Glucose 137(H) 74 - 99 mg/dL [...] 2025 2:08 PM EST [facility] 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 Machine Operator Helper ID Rodney Vázquez 025 2:08 PM EST [facility] Device ID [id number] 2025 2:08 PM EST [facility] Specimen Type POC Capillary 2025 2:08 PM EST [facility] Blood Capillary blood specimen / Unknown 2025 1:32 PM EST 2025 2:08 PM EST Satnam Beckford MD LAB POINT OF CARE T EST DOCKED DEVICE UNSOLICITED RESULTS Final Result Performing Organization Address [facility] Co de Phone Number [facility] [address] [place] [address] * POCT glucose meter (2025 1:08 PM EST) [facility] POCT Glucose 88 74 - 99 mg/dL [...] 2025 1:10 PM EST [facility] 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 Machine Operator Helper ID Rodney Vázquez Katherine 025 1:10 PM EST [facility] Device ID [id number] 2025 1:10 PM EST [facility] Specimen Type POC Capillary 2025 1:10 PM EST [facility] Blood Capillary blood specimen / Unknown 2025 1:08 PM EST 2025 1:10 PM EST Satnam Beckford MD LAB POINT OF CARE T EST DOCKED DEVICE UNSOLICITED RESULTS Final Result Performing Organization Address [facility] de Phone Number [facility] [address] [place] [address] * FL ERC (2025 12:59 PM EST) Narrative IMAGING - 2025 2:38 PM EST Images were obtained for surgical purposes. See Parmjit Garcia's surgical note in the patient's chart for the findings. Parmjit Garcia MD IMG FLUOROSCOPY PROCEDURES Fin al Result Performing Organization Address City/[facility] Co de Phone Number IMAGING * ERCP (2025 12:58 PM EST) [...] for anesthesia administered medications. Staff Staff Role Angelo-Florencio Kearns RN Endo Nurse Yari Henderson RN Endo Nurse Da De MD Anesthesiologist Bethany Ayers CRNA CRNA Plentz, Ruben R, MD Proceduralist Yi Reese Endo Photogravure Press Operator Rell Vivas MD Proceduralist Preprocedure A history [...] and ampullary region appeared normal. ERCP: The electrical development engineer film showed manju. The duodenoscope was passed under direct vision through the mouth and advanced to the second portion of the duodenum. The major papilla was visualized. The major papilla was crow. Endo-biliary stent placed during transplant no longer [...] POCT glucose meter (2025 8:35 AM EST) POCT Glucose 94 74 - 99 mg/dL 2025 8:37 AM EST [facility] Comment:Accuracy of a glucos e result [...] for testing. Comment 2025 8:37 AM EST [facility] 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 Machine Operator Helper ID Dominic Canchola 2025 8:37 AM EST [facility] Device ID [id number] 2025 8:37 AM EST [facility] Specimen Type POC Capillary 2025 8:37 AM EST [facility] Blood Capillary blood specimen / Unknown 2025 8:35 AM EST 2025 8:37 AM EST Satnam Beckford MD LAB POINT OF CARE T EST DOCKED DEVICE UNSOLICITED RESULTS Final Result Performing Organization Address City/[facility]/ZIP Co de Phone Number [facility] [address] [place] [address] * POCT glucose meter (2025 7:50 AM EST) POCT Glucose 84 74 - 99 mg/dL [...] for testing. Comment 2025 7:52 AM EST [facility] 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 Machine Operator Helper ID Dominic Canchola 2025 7:52 AM EST [facility] Device ID [id number] 2025 7:52 AM EST [facility] Specimen Type POC Capillary 2025 7:52 AM EST [facility] Blood Capillary blood specimen / Unknown 2025 7:50 AM EST 2025 7:52 AM EST us Maciel Olson MD LAB POINT OF CARE TE ST DOCKED DEVICE UNSOLICITED RESULTS Final Result Performing Organization Address City/[facility]/ZIP Co de Phone Number [facility] [address] [place] [address] * (ABNORMAL) POCT glucose meter (2025 6:53 [...] for testing. Comment 2025 6:54 AM EST [facility] 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 Machine Operator Helper ID Vida Garcia 2025 6:54 AM EST [facility] Device ID [id number] 2025 6:54 AM EST [facility] Specimen Type POC Capillary 2025 6:54 AM EST [facility] Blood Capillary blood specimen / Unknown 2025 6:53 AM EST 2025 6:54 AM EST us Maciel Olson MD LAB POINT OF CARE TE ST DOCKED DEVICE UNSOLICITED RESULTS Final Result Performing Organization Address City/State/[facility] de Phone Number [facility] [address] [place] [address] * POCT glucose meter (2025 6:13 AM EST) [facility] POCT Glucose 89 74 - 99 mg/dL 2025 6:14 AM EST [facility] Comment:Accuracy of a glucos e result [...] for testing. Comment 2025 6:14 AM EST [facility] 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 Machine Operator Helper ID Daylin Mckeon 2025 6:14 AM EST [facility] Device ID [id number] 2025 6:14 AM EST [facility] Specimen Type POC Capillary 2025 6:14 AM EST [facility] Blood Capillary blood specimen / Unknown 2025 6:13 AM EST 2025 6:14 AM EST us Maciel Olson MD LAB POINT OF CARE TE ST DOCKED DEVICE UNSOLICITED RESULTS Final Result Performing Organization Address [facility] Co de Phone Number [facility] [address] [place] [address] * POCT glucose meter (2025 5:53 AM EST) POCT Glucose 79 74 - 99 mg/dL 2025 5:55 AM EST [facility] Comment:Accuracy of [...] 2025 5:55 AM EST [facility] 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 Machine Operator Helper ID Vida Garcia 2025 5:55 AM EST [facility] Device ID [id number] 2025 5:55 AM EST [facility] Specimen Type POC Capillary 2025 5:55 AM EST [facility] Blood Capillary blood specimen / Unknown 2025 5:53 AM EST 2025 5:55 AM EST Maciel Olson MD LAB POINT OF CARE TE ST DOCKED DEVICE UNSOLICITED RESULTS Final Result Performing Organization Address [facility] de Phone Number [facility] [address] [place] [address] * Phosphorus (2025 4:51 AM EST) Pathologist [facility] Phosphorus, Plasma 2.9 2.5 - 4.5 mg/dL 2025 5:25 AM EST [facility] Blood Venous blood specimen / Unknown Venipuncture / Unknown 2025 4:51 AM EST 2025 4:57 AM EST us Maciel Olson MD LAB BLOOD ORDERABLES Final Resul t Performing Organization Address City/[facility]/ZIP Co de Phone Number [facility] [address] [place] [address] * Magnesium (2025 4:51 AM EST) Magnesium, Plasma 2.2 1.9 - 2.4 mg/dL 2025 5:25 AM EST [facility] Blood Venous blood specimen / Unknown Venipuncture / Unknown 2025 4:51 AM EST 2025 4:57 AM EST Maciel Olson MD LAB BLOOD ORDERABLES Final Resul t [facility] [address] [place] [address] * (ABNORMAL) Comprehensive metabolic panel (2025 4:51 AM EST) Glucose, Plasma 76 74 - 99 mg/dL 2025 5:25 AM EST [facility] BUN, Plasma 26(H) 7 - 21 mg/dL 2025 5:25 AM EST [facility] Creatinine, Plasma 1.26(H) 0.70 - 1.20 mg/dL 2025 5:25 AM EST [facility] BUN/Creatinine Ratio 21 2025 5:25 AM EST [facility] Sodium, Plasma 133(L) 136 - 145 mmol/L 2025 5:25 AM EST [facility] Potassium, Plasma 3.6 3.6 - 4.9 mmol/L 2025 5:25 AM EST [facility] Chloride, Plasma 102 97 - 107 mmol/L 2025 5:25 AM EST [facility] CO2, Plasma 23 22 - 29 mmol/L 2025 5:25 AM EST [facility] Anion Gap 8 6 - 16 mmol/L 2025 5:25 AM EST [facility] Total Calcium, Plasma 7.6(L) 8.9 - 10.2 mg/dL 2025 5:25 AM EST [facility] Total Protein 4.3(L) 6.3 - 7.9 g/dL 2025 5:25 AM EST [facility] Albumin, Plasma 2.6(L) 3.5 - 5.2 g/dL 2025 5:25 AM EST [facility] AST, Plasma 22 10 - 50 U/L 2025 5:25 AM EST [facility] ALT, Plasma 70(H) 10 - 50 U/L 2025 5:25 AM EST [facility] Alkaline Phosphatase, Plasma 107 40 - 115 U/L 2025 5:25 AM EST [facility] Total Bilirubin, Plasma 10.4(H) 0.2 - 1.1 mg/dL 2025 5:25 AM EST [facility] eGFRcr 71.2 mL/min/1.7 3m*2 2025 5:25 AM EST [facility] Comment:Reported eGFRcr in m L/min/1.73m2 is based the CKD-EPI 2020 equation that does not use a race coefficient. Blood Venous blood specimen / Unknown Venipuncture / Unknown 2025 4:51 AM EST 2025 4:57 AM EST us Maciel Olson MD LAB BLOOD ORDERABLES Final Resul t [facility] [address] [place] [address] * (ABNORMAL) CBC W/O Differential (2025 4:51 AM EST) WBC Count 5.23 3.70 - 10.30 10*3/uL LAB HEMATOLOGY METHOD 2025 5:10 AM EST [facility] RBC Count 2.49(L) 4.60 - 6.10 10*6/uL LAB HEMATOLOGY METHOD 2025 5:10 AM EST [facility] HGB 8.1(L) 13.7 - 17.5 g/dL LAB HEMATOLOGY METHOD 2025 5:10 AM EST [facility] HCT 24.3(L) 40.0 - 51.0 % LAB HEMATOLOGY METHOD 2025 5:10 AM EST [facility] Platelet Count 45(L) 155 - 369 10*3/uL LAB HEMATOLOGY METHOD 2025 5:10 AM EST [facility] MCV 98 79 - 98 fL LAB HEMATOLOGY METHOD 2025 5:10 AM EST [facility] MCH 32.5(H) 26.0 - 32.0 pg LAB HEMATOLOGY METHOD 2025 5:10 AM EST [facility] MCHC 33.3 30.7 - 35.5 g/dL LAB HEMATOLOGY METHOD 2025 5:10 AM EST [facility] RDW 23.5(H) 11.5 - 14.5 % LAB HEMATOLOGY METHOD 2025 5:10 AM EST [facility] MPV 10.7 8.8 - 12.5 fL LAB HEMATOLOGY METHOD 2025 5:10 AM EST [facility] nRBC 0.0 <=0.0 per 100 WBCs LAB HEMATOLOGY METHOD 2025 5:10 AM EST [facility] Blood Venous blood specimen / Unknown Venipuncture / Unknown 2025 4:51 AM EST 2025 4:57 AM EST us Maciel Olson MD LAB BLOOD ORDERABLES Final Resul t [facility] [address] [place] [address] * (ABNORMAL) Prothrombin Time/INR (2025 4:51 AM EST) Prothrombin Time 15.1(H) 12.0 - 14.3 sec LAB COAGULATION METHOD 2025 5:18 AM EST [facility] INR 1.2(H) 0.9 - 1.1 LAB COAGULATION METHOD 2025 5:18 AM EST [facility] Blood Venous blood specimen / Unknown Venipuncture / Unknown 2025 4:51 AM EST 2025 4:58 AM EST Narrative [facility] - 2025 5:18 AM EST OPTIMAL INR RANGES FOR PATIENT ON ORAL ANTICOAGULANT THERAPY Prevention of venous thromboembolism INR 2.0 to 3.0 In patients with heart disease: Atrial fibrillation INR 2.0 to 3.0 Valvular heart disease INR 2.0 to 3.0 Tissue heart valves INR 2.0 to 3.0 Mechanical prosthetic valves INR 2.5 to 3.5 Prevention of recurrent ME INR 2.5 to 3.5 Maciel Olson MD LAB BLOOD ORDERABLES Final Resul t Performing Organization Address [facility] de Phone Number [facility] [address] [place] [address] * Tacrolimus (2025 4:51 AM EST) Tacrolimus 5.8 4.0 - 17.0 ng/mL 2025 12:28 PM EST [facility] Comment: Tacrolimus therapeutic range: Initial (<3 mo.) Maintenance Kidney 8-13 ng/mL 4-8 ng/mL Liver 8-13 ng/mL 4-8 ng/mL Heart 8-15 ng/mL 7-13 ng/mL Lung;Heart/Lung 8-17 ng/mL 8-13 ng/mL Blood Venous blood specimen / Unknown Venipuncture / Unknown 2025 4:51 AM EST 2025 4:57 AM EST Narrative [facility] - 2025 12:28 PM EST Test performed by LC-MS/MS at the [facility]. This test was developed and its performance characteristics determined by [facility]. It has not been cleared or approved by the FDA. The laboratory is regulated under CLIA as qualified to perform high-complexity testing. This test is used for clinical purposes. Test performed by LC-MS/MS at the [facility]. This test was developed and its performance characteristics determined by [facility]. It has not been cleared or approved by the FDA. The laboratory is regulated under CLIA as qualified to perform high-complexity testing. This test is used for clinical purposes. Maciel Olson MD LAB BLOOD ORDERABLES Final Resul t Performing Organization Address [facility] Co de Phone Number [facility] [address] [place] [address] * (ABNORMAL) POCT glucose meter (01/11/2025 8:22 PM EST) [facility] POCT Glucose 111(H) 74 - 99 mg/dL 01/11/2025 8:24 PM EST [facility] Comment:Accuracy of a [...] for testing. Comment 01/11/2025 8:24 PM EST [facility] 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 Machine Operator Helper ID Vida Garcia 01/11/2025 8:24 PM EST [facility] Device ID [id number] 01/11/2025 8:24 PM EST [facility] Specimen Type POC Capillary 01/11/2025 8:24 PM EST [facility] Blood Capillary blood specimen / Unknown 01/11/2025 8:22 PM EST 01/11/2025 8:24 PM EST Maciel Olson MD LAB POINT OF CARE TE ST DOCKED DEVICE UNSOLICITED RESULTS Final Result Performing Organization Address City/State/[facility] Co de Phone Number [facility] [address] [place] [address] * (ABNORMAL) POCT glucose meter (01/11/2025 4:54 PM EST) [facility] POCT Glucose 110(H) 74 - 99 mg/dL [...] 01/11/2025 4:56 PM EST [facility] 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 Machine Operator Helper ID Tila Garcia 4:56 PM EST [facility] Device ID [id number] 01/11/2025 4:56 PM EST [facility] Specimen Type POC Capillary 01/11/2025 4:56 PM EST [facility] Blood Capillary blood specimen / Unknown 01/11/2025 4:54 PM EST 01/11/2025 4:56 PM EST us Maciel Olson MD LAB POINT OF CARE TE ST DOCKED DEVICE UNSOLICITED RESULTS Final Result Performing Organization Address [facility] de Phone Number [facility] [address] [place] [address] * (ABNORMAL) POCT glucose meter (01/11/2025 11:35 AM EST) POCT Glucose 117(H) 74 - 99 mg/dL 01/11/2025 11:37 AM EST [facility] Comment:Accuracy of [...] for testing. Comment 01/11/2025 11:37 AM EST [facility] 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 Machine Operator Helper ID Tila Garcia 11:37 AM EST [facility] Device ID [id number] 01/11/2025 11:37 AM EST [facility] Specimen Type POC Capillary 01/11/2025 11:37 AM EST [facility] Blood Capillary blood specimen / Unknown 01/11/2025 11:35 AM EST 01/11/2025 11:37 AM EST us Maciel Olson MD LAB POINT OF CARE TE ST DOCKED DEVICE UNSOLICITED RESULTS Final Result Performing Organization Address [facility] Phone Number [facility] [address] [place] [address] * POCT glucose meter (01/11/2025 8:06 AM EST) POCT Glucose 91 74 - 99 mg/dL 01/11/2025 8:07 AM EST [facility] Comment:Accuracy of [...] for testing. Comment 01/11/2025 8:07 AM EST [facility] 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 Machine Operator Helper ID Tila Garcia 8:07 AM EST [facility] Device ID [id number] 01/11/2025 8:07 AM EST [facility] Specimen Type POC Capillary 01/11/2025 8:07 AM EST [facility] Blood Capillary blood specimen / Unknown 01/11/2025 8:06 AM EST 01/11/2025 8:07 AM EST Maciel Olson MD LAB POINT OF CARE TE ST DOCKED DEVICE UNSOLICITED RESULTS Final Result Performing Organization Address [facility] Phone Number [facility] [address] [place] [address] * (ABNORMAL) Prothrombin Time/INR (01/11/2025 5:41 AM EST) Prothrombin Time 15.9(H) 12.0 - 14.3 sec LAB COAGULATION METHOD 01/11/2025 6:05 AM EST [facility] INR 1.2(H) 0.9 - 1.1 LAB COAGULATION METHOD 01/11/2025 6:05 AM EST [facility] Blood Venous blood specimen / Unknown Venipuncture / Unknown 01/11/2025 5:41 AM EST 01/11/2025 5:45 AM EST Narrative [facility] - 01/11/2025 6:05 AM EST OPTIMAL INR RANGES FOR PATIENT ON ORAL ANTICOAGULANT THERAPY Prevention of venous thromboembolism INR 2.0 to 3.0 In patients with heart disease: Atrial fibrillation INR 2.0 to 3.0 Valvular heart disease INR 2.0 to 3.0 Tissue heart valves INR 2.0 to 3.0 Mechanical prosthetic valves INR 2.5 to 3.5 Prevention of recurrent ME INR 2.5 to 3.5 us Maciel Olson MD LAB BLOOD ORDERABLES Final Resul t [facility] [address] [place] [address] * Phosphorus (01/11/2025 4:49 AM EST) Phosphorus, Plasma 3.6 2.5 - 4.5 mg/dL 01/11/2025 5:30 AM EST [facility] Blood Venous blood specimen / Unknown Venipuncture / Unknown 01/11/2025 4:49 AM EST 01/11/2025 4:57 AM EST us Maciel Olson MD LAB BLOOD ORDERABLES Final Resul t Performing Organization Address City/[facility]/ZIP Co de Phone Number [facility] [address] [place] [address] * (ABNORMAL) Magnesium (01/11/2025 4:49 AM EST) Magnesium, Plasma 1.6(L) 1.9 - 2.4 mg/dL 01/11/2025 5:30 AM EST [facility] Blood Venous blood specimen / Unknown Venipuncture / Unknown 01/11/2025 4:49 AM EST 01/11/2025 4:57 AM EST us Maciel Olson MD LAB BLOOD ORDERABLES Final Resul t Performing Organization Address City/[facility]/ZIP Co de Phone Number [facility] [address] [place] [address] * (ABNORMAL) Comprehensive metabolic panel (01/11/2025 4:49 AM EST) Glucose, Plasma 81 74 - 99 mg/dL 01/11/2025 5:30 AM EST [facility] BUN, Plasma 31(H) 7 - 21 mg/dL 01/11/2025 5:30 AM EST [facility] Creatinine, Plasma 1.36(H) 0.70 - 1.20 mg/dL 01/11/2025 5:30 AM EST [facility] BUN/Creatinine Ratio 23 01/11/2025 5:30 AM EST [facility] Sodium, Plasma 137 136 - 145 mmol/L 01/11/2025 5:30 AM EST [facility] Potassium, Plasma 3.5(L) 3.6 - 4.9 mmol/L 01/11/2025 5:30 AM EST [facility] Chloride, Plasma 104 97 - 107 mmol/L 01/11/2025 5:30 AM EST [facility] CO2, Plasma 24 22 - 29 mmol/L 01/11/2025 5:30 AM EST [facility] Anion Gap 9 6 - 16 mmol/L 01/11/2025 5:30 AM EST [facility] Total Calcium, Plasma 7.8(L) 8.9 - 10.2 mg/dL 01/11/2025 5:30 AM EST [facility] Total Protein 4.4(L) 6.3 - 7.9 g/dL 01/11/2025 5:30 AM EST [facility] Albumin, Plasma 2.8(L) 3.5 - 5.2 g/dL 01/11/2025 5:30 AM EST [facility] AST, Plasma 31 10 - 50 U/L 01/11/2025 5:30 AM EST [facility] ALT, Plasma 88(H) 10 - 50 U/L 01/11/2025 5:30 AM EST [facility] Alkaline Phosphatase, Plasma 121(H) 40 - 115 U/L 01/11/2025 5:30 AM EST [facility] Total Bilirubin, Plasma 8.5(H) 0.2 - 1.1 mg/dL 01/11/2025 5:30 AM EST [facility] eGFRcr 65.4 mL/min/1.7 3m*2 01/11/2025 5:30 AM EST [facility] Comment:Reported eGFRcr in m L/min/1.73m2 is based the CKD-EPI 2020 equation that does not use a race coefficient. Blood Venous blood specimen / Unknown Venipuncture / Unknown 01/11/2025 4:49 AM EST 01/11/2025 4:57 AM EST us Maciel Olson MD LAB BLOOD ORDERABLES Final Resul t [facility] [address] [place] [address] * (ABNORMAL) CBC W/O Differential (01/11/2025 4:49 AM EST) WBC Count 6.42 3.70 - 10.30 10*3/uL LAB HEMATOLOGY METHOD 01/11/2025 5:07 AM EST [facility] RBC Count 2.57(L) 4.60 - 6.10 10*6/uL LAB HEMATOLOGY METHOD 01/11/2025 5:07 AM EST [facility] HGB 8.3(L) 13.7 - 17.5 g/dL LAB HEMATOLOGY METHOD 01/11/2025 5:07 AM EST [facility] HCT 24.6(L) 40.0 - 51.0 % LAB HEMATOLOGY METHOD 01/11/2025 5:07 AM EST [facility] Platelet Count 39(L) 155 - 369 10*3/uL LAB HEMATOLOGY METHOD 01/11/2025 5:07 AM EST [facility] MCV 96 79 - 98 fL LAB HEMATOLOGY METHOD 01/11/2025 5:07 AM EST [facility] MCH 32.3(H) 26.0 - 32.0 pg LAB HEMATOLOGY METHOD 01/11/2025 5:07 AM EST [facility] MCHC 33.7 30.7 - 35.5 g/dL LAB HEMATOLOGY METHOD 01/11/2025 5:07 AM EST [facility] RDW 22.6(H) 11.5 - 14.5 % LAB HEMATOLOGY METHOD 01/11/2025 5:07 AM EST [facility] MPV 10.2 8.8 - 12.5 fL LAB HEMATOLOGY METHOD 01/11/2025 5:07 AM EST [facility] nRBC 0.0 <=0.0 per 100 WBCs LAB HEMATOLOGY METHOD 01/11/2025 5:07 AM EST [facility] Blood Venous blood specimen / Unknown Venipuncture / Unknown 01/11/2025 4:49 AM EST 01/11/2025 4:57 AM EST us Maciel Olson MD LAB BLOOD ORDERABLES Final Resul t [facility] [address] [place] [address] * Tacrolimus (01/11/2025 4:49 AM EST) Tacrolimus 4.3 4.0 - 17.0 ng/mL 01/11/2025 12:36 PM EST [facility] Comment: Tacrolimus therapeutic range: Initial (<3 mo.) Maintenance Kidney 8-13 ng/mL 4-8 ng/mL Liver 8-13 ng/mL 4-8 ng/mL Heart 8-15 ng/mL 7-13 ng/mL Lung;Heart/Lung 8-17 ng/mL 8-13 ng/mL Blood Venous blood specimen / Unknown Venipuncture / Unknown 01/11/2025 4:49 AM EST 01/11/2025 4:57 AM EST Narrative [facility] - 01/11/2025 12:36 PM EST Test performed by LC-MS/MS at the [facility]. This test was developed and its performance characteristics determined by [facility]. It has not been cleared or approved by the FDA. The laboratory is regulated under CLIA as qualified to perform high-complexity testing. This test is used for clinical purposes. Test performed by LC-MS/MS at the [facility]. This test was developed and its performance characteristics determined by [facility]. It has not been cleared or approved by the FDA. The laboratory is regulated under CLIA as qualified to perform high-complexity testing. This test is used for clinical purposes. Maciel Olson MD LAB BLOOD ORDERABLES Final Resul t [facility] [address] [place] [address] * (ABNORMAL) POCT glucose meter (01/10/2025 8:42 PM EST) Pathologist [facility] POCT Glucose 104(H) 74 - 99 mg/dL 01/10/2025 8:44 PM EST [facility] Comment:Accuracy of a glucos e result [...] for testing. Comment 01/10/2025 8:44 PM EST [facility] 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 Machine Operator Helper ID Elver Medel 01/10/2025 8:44 PM EST [facility] Device ID [id number] 01/10/2025 8:44 PM EST [facility] Specimen Type POC Capillary 01/10/2025 8:44 PM EST [facility] Blood Capillary blood specimen / Unknown 01/10/2025 8:42 PM EST 01/10/2025 8:44 PM EST Maciel Olson MD LAB POINT OF CARE TE ST DOCKED DEVICE UNSOLICITED RESULTS Final Result Performing Organization Address City/[facility] Co de Phone Number [facility] [address] [place] [address] * (ABNORMAL) POCT glucose meter (01/10/2025 5:02 PM EST) POCT Glucose 102(H) 74 - 99 mg/dL 01/10/2025 5:03 PM EST [facility] Comment:Accuracy of a [...] for testing. Comment 01/10/2025 5:03 PM EST [facility] 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 Machine Operator Helper ID Gaby Alfaro 01/10/2025 5:03 PM EST [facility] Device ID [id number] 01/10/2025 5:03 PM EST [facility] Specimen Type POC Capillary 01/10/2025 5:03 PM EST [facility] Blood Capillary blood specimen / Unknown 01/10/2025 5:02 PM EST 01/10/2025 5:03 PM EST us Maciel Olson MD LAB POINT OF CARE TE ST DOCKED DEVICE UNSOLICITED RESULTS Final Result Performing Organization Address City/[facility] Co de Phone Number [facility] [address] [place] [address] * MRCP w and wo IV Contrast [...] in the ventral abdominal wall with mild lauren- incisional fluid. Symmetric mild to moderate gynecomastia. Mild mural thickening in the right colon, nonspecific, possibly related to portal hypertension. Scattered mesenteric interloop fluid. Body wall edema. Procedure Note Rojelio Hahn MD - 01/11/2025 CLINICAL INDICATION: Liver disease, chronic, tumor screening TECHNIQUE: MR imaging of the abdomen was performed with and without intravenouscontrast material using the following sequences: coronal single shot [id number] fast spin echo, axial T2 weighted sequences [...] on 01/11/2025 11:43 AM Jude Peters MD IM MRI PROCEDURES Final Result * US Abdomen [...] signing this report, I, the attending physician, attrosa I have personally reviewed the images/data for the aboveexamination(s) and agree with the final edited report. Drafted by LÓPEZ Bond on 01/10/2025 12:35 PM Final report signed by Sha Dietrich MD on 01/10/2025 1:54 PM us Jude Peters MD IMG US PROCEDURES Final Result * (ABNORMAL) POCT glucose meter (01/10/2025 11:27 AM EST) POCT Glucose 109(H) 74 - 99 mg/dL 01/10/2025 11:28 AM EST [facility] Comment:Accuracy of a [...] for testing. Comment 01/10/2025 11:28 AM EST [facility] 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 Machine Operator Helper ID Gaby Alfaro 01/10/2025 11:28 AM EST [facility] Device ID [id number] 01/10/2025 11:28 AM EST [facility] Specimen Type POC Capillary 01/10/2025 11:28 AM EST [facility] Blood Capillary blood specimen / Unknown 01/10/2025 11:27 AM EST 01/10/2025 11:28 AM EST Maciel Olson MD LAB POINT OF CARE TE ST DOCKED DEVICE UNSOLICITED RESULTS Final Result [facility] [address] [place] [address] * (ABNORMAL) Comprehensive Metabolic Panel, Plasma (01/10/2025 9:38 AM EST) [facility] Glucose, Plasma 123(H) 74 - 99 mg/dL 01/10/2025 10:13 AM EST [facility] BUN, Plasma 43(H) 7 - 21 mg/dL 01/10/2025 10:13 AM EST [facility] Creatinine, Plasma 1.38(H) 0.70 - 1.20 mg/dL 01/10/2025 10:13 AM EST [facility] BUN/Creatinine Ratio 31 01/10/2025 10:13 AM EST [facility] Sodium, Plasma 136 136 - 145 mmol/L 01/10/2025 10:13 AM EST [facility] Potassium, Plasma 3.7 3.6 - 4.9 mmol/L 01/10/2025 10:13 AM EST [facility] Chloride, Plasma 102 97 - 107 mmol/L 01/10/2025 10:13 AM EST [facility] CO2, Plasma 24 22 - 29 mmol/L 01/10/2025 10:13 AM EST [facility] Anion Gap 10 6 - 16 mmol/L 01/10/2025 10:13 AM EST [facility] Total Calcium, Plasma 8.1(L) 8.9 - 10.2 mg/dL 01/10/2025 10:13 AM EST [facility] Total Protein 4.4(L) 6.3 - 7.9 g/dL 01/10/2025 10:13 AM EST [facility] Albumin, Plasma 2.8(L) 3.5 - 5.2 g/dL 01/10/2025 10:13 AM EST [facility] AST, Plasma 39 10 - 50 U/L 01/10/2025 10:13 AM EST [facility] ALT, Plasma 111(H) 10 - 50 U/L 01/10/2025 10:13 AM EST [facility] Alkaline Phosphatase, Plasma 125(H) 40 - 115 U/L 01/10/2025 10:13 AM EST [facility] Total Bilirubin, Plasma 6.1(H) 0.2 - 1.1 mg/dL 01/10/2025 10:13 AM EST [facility] eGFRcr 64.3 mL/min/1.7 3m*2 01/10/2025 10:13 AM EST [facility] Comment:Reported eGFRcr in m L/min/1.73m2 is based the CKD-EPI 2020 equation that does not use a race coefficient. Blood Venous blood specimen / Unknown Venipuncture / Unknown 01/10/2025 9:38 AM EST 01/10/2025 9:42 AM EST us Jude Peters MD LAB BLOOD ORDERABL ES Final Result [facility] [address] [place] [address] * POCT glucose meter (01/10/2025 7:30 AM EST) POCT Glucose 99 74 - 99 mg/dL 01/10/2025 7:32 AM EST [facility] Comment:Accuracy of [...] for testing. Comment 01/10/2025 7:32 AM EST [facility] 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 Machine Operator Helper ID Gaby Alfaro 01/10/2025 7:32 AM EST [facility] Device ID [id number] 01/10/2025 7:32 AM EST [facility] Specimen Type POC Capillary 01/10/2025 7:32 AM EST [facility] Blood Capillary blood specimen / Unknown 01/10/2025 7:30 AM EST 01/10/2025 7:32 AM EST us Maciel Olson MD LAB POINT OF CARE TE ST DOCKED DEVICE UNSOLICITED RESULTS Final Result Performing Organization Address City/State/[facility] de Phone Number [facility] [address] [place] [address] * (ABNORMAL) POCT glucose meter (01/10/2025 6:14 AM EST) [facility] Signature POCT Glucose 103(H) 74 - 99 mg/dL 01/10/2025 6:15 AM EST [facility] Comment:Accuracy of a glucos e result [...] Comment 01/10/2025 6:15 AM EST [facility] 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 Machine Operator Helper ID Anay Rodriguez 01/10/2025 6:15 AM EST [facility] Device ID [id number] 01/10/2025 6:15 AM EST [facility] Specimen Type POC Capillary 01/10/2025 6:15 AM EST [facility] Blood Capillary blood specimen / Unknown 01/10/2025 6:14 AM EST 01/10/2025 6:15 AM EST us Maciel Olson MD LAB POINT OF CARE TE ST DOCKED DEVICE UNSOLICITED RESULTS Final Result Performing Organization Address [facility] Co de Phone Number [facility] [address] [place] [address] * POCT glucose meter (01/10/2025 5:23 AM EST) Pathologist [facility] POCT Glucose 83 74 - 99 mg/dL 01/10/2025 5:25 AM EST [facility] Comment:Accuracy of [...] Comment 01/10/2025 5:25 AM EST [facility] 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 Machine Operator Helper ID Anay Rodriguez 01/10/2025 5:25 AM EST [facility] Device ID [id number] 01/10/2025 5:25 AM EST [facility] Specimen Type POC Capillary 01/10/2025 5:25 AM EST [facility] Blood Capillary blood specimen / Unknown 01/10/2025 5:23 AM EST 01/10/2025 5:25 AM EST us Maciel Olson MD LAB POINT OF CARE TE ST DOCKED DEVICE UNSOLICITED RESULTS Final Result Performing Organization Address [facility] de Phone Number [facility] [address] [place] [address] * Phosphorus (01/10/2025 5:13 AM EST) Pathologist [facility] Phosphorus, Plasma 3.8 2.5 - 4.5 mg/dL 01/10/2025 5:49 AM EST [facility] Blood Venous blood specimen / Unknown Venipuncture / Unknown 01/10/2025 5:13 AM EST 01/10/2025 5:20 AM EST us Maciel Olson MD LAB BLOOD ORDERABLES Final Resul t Performing Organization Address City/[facility]/ZIP Co de Phone Number [facility] [address] [place] [address] * (ABNORMAL) Magnesium (01/10/2025 5:13 AM EST) Magnesium, Plasma 1.5(L) 1.9 - 2.4 mg/dL 01/10/2025 5:49 AM EST [facility] Blood Venous blood specimen / Unknown Venipuncture / Unknown 01/10/2025 5:13 AM EST 01/10/2025 5:20 AM EST us Maciel Olson MD LAB BLOOD ORDERABLES Final Resul t [facility] [address] [place] [address] * (ABNORMAL) Comprehensive metabolic panel (01/10/2025 5:13 AM EST) Glucose, Plasma 79 74 - 99 mg/dL 01/10/2025 5:49 AM EST [facility] BUN, Plasma 44(H) 7 - 21 mg/dL 01/10/2025 5:49 AM EST [facility] Creatinine, Plasma 1.44(H) 0.70 - 1.20 mg/dL 01/10/2025 5:49 AM EST [facility] BUN/Creatinine Ratio 31 01/10/2025 5:49 AM EST [facility] Sodium, Plasma 136 136 - 145 mmol/L 01/10/2025 5:49 AM EST [facility] Potassium, Plasma 3.7 3.6 - 4.9 mmol/L 01/10/2025 5:49 AM EST [facility] Chloride, Plasma 101 97 - 107 mmol/L 01/10/2025 5:49 AM EST [facility] CO2, Plasma 23 22 - 29 mmol/L 01/10/2025 5:49 AM EST [facility] Anion Gap 12 6 - 16 mmol/L 01/10/2025 5:49 AM EST [facility] Total Calcium, Plasma 8.3(L) 8.9 - 10.2 mg/dL 01/10/2025 5:49 AM EST [facility] Total Protein 4.8(L) 6.3 - 7.9 g/dL 01/10/2025 5:49 AM EST [facility] Albumin, Plasma 3.1(L) 3.5 - 5.2 g/dL 01/10/2025 5:49 AM EST [facility] AST, Plasma 49 10 - 50 U/L 01/10/2025 5:49 AM EST [facility] ALT, Plasma 126(H) 10 - 50 U/L 01/10/2025 5:49 AM EST [facility] Alkaline Phosphatase, Plasma 127(H) 40 - 115 U/L 01/10/2025 5:49 AM EST [facility] Total Bilirubin, Plasma 5.2(H) 0.2 - 1.1 mg/dL 01/10/2025 5:49 AM EST [facility] eGFRcr 61.1 mL/min/1.7 3m*2 01/10/2025 5:49 AM EST [facility] Comment:Reported eGFRcr in m L/min/1.73m2 is based the CKD-EPI 2020 equation that does not use a race coefficient. Blood Venous blood specimen / Unknown Venipuncture / Unknown 01/10/2025 5:13 AM EST 01/10/2025 5:20 AM EST us Maciel Olson MD LAB BLOOD ORDERABLES Final Resul t [facility] [address] [place] [address] * (ABNORMAL) CBC W/O Differential (01/10/2025 5:13 AM EST) WBC Count 6.97 3.70 - 10.30 10*3/uL LAB HEMATOLOGY METHOD 01/10/2025 5:29 AM EST [facility] RBC Count 3.03(L) 4.60 - 6.10 10*6/uL LAB HEMATOLOGY METHOD 01/10/2025 5:29 AM EST [facility] HGB 9.4(L) 13.7 - 17.5 g/dL LAB HEMATOLOGY METHOD 01/10/2025 5:29 AM EST [facility] HCT 28.1(L) 40.0 - 51.0 % LAB HEMATOLOGY METHOD 01/10/2025 5:29 AM EST [facility] Platelet Count 44(L) 155 - 369 10*3/uL LAB HEMATOLOGY METHOD 01/10/2025 5:29 AM EST [facility] MCV 93 79 - 98 fL LAB HEMATOLOGY METHOD 01/10/2025 5:29 AM EST [facility] MCH 31.0 26.0 - 32.0 pg LAB HEMATOLOGY METHOD 01/10/2025 5:29 AM EST [facility] MCHC 33.5 30.7 - 35.5 g/dL LAB HEMATOLOGY METHOD 01/10/2025 5:29 AM EST [facility] RDW 21.7(H) 11.5 - 14.5 % LAB HEMATOLOGY METHOD 01/10/2025 5:29 AM EST [facility] MPV 11.5 8.8 - 12.5 fL LAB HEMATOLOGY METHOD 01/10/2025 5:29 AM EST [facility] nRBC 0.0 <=0.0 per 100 WBCs LAB HEMATOLOGY METHOD 01/10/2025 5:29 AM EST [facility] Blood Venous blood specimen / Unknown Venipuncture / Unknown 01/10/2025 5:13 AM EST 01/10/2025 5:20 AM EST us Maciel Olson MD LAB BLOOD ORDERABLES Final Resul t [facility] [address] [place] [id number] * (ABNORMAL) Prothrombin Time/INR (01/10/2025 5:13 AM EST) Prothrombin Time 16.0(H) 12.0 - 14.3 sec LAB COAGULATION METHOD 01/10/2025 5:35 AM EST [facility] INR 1.3(H) 0.9 - 1.1 LAB COAGULATION METHOD 01/10/2025 5:35 AM EST [facility] Blood Venous blood specimen / Unknown Venipuncture / Unknown 01/10/2025 5:13 AM EST 01/10/2025 5:20 AM EST Narrative [facility] - 01/10/2025 5:35 AM EST OPTIMAL INR RANGES FOR PATIENT ON ORAL ANTICOAGULANT THERAPY Prevention of venous thromboembolism INR 2.0 to 3.0 In patients with heart disease: Atrial fibrillation INR 2.0 to 3.0 Valvular heart disease INR 2.0 to 3.0 Tissue heart valves INR 2.0 to 3.0 Mechanical prosthetic valves INR 2.5 to 3.5 Prevention of recurrent ME INR 2.5 to 3.5 Maciel Olson MD LAB BLOOD ORDERABLES Final Resul t [facility] [address] [place] [address] * (ABNORMAL) Tacrolimus (01/10/2025 5:13 AM EST) Tacrolimus 3.4(L) 4.0 - 17.0 ng/mL 01/10/2025 11:55 AM EST [facility] Comment: Tacrolimus therapeutic range: Initial (<3 mo.) Maintenance Kidney 8-13 ng/mL 4-8 ng/mL Liver 8-13 ng/mL 4-8 ng/mL Heart 8-15 ng/mL 7-13 ng/mL Lung;Heart/Lung 8-17 ng/mL 8-13 ng/mL Blood Venous blood specimen / Unknown Venipuncture / Unknown 01/10/2025 5:13 AM EST 01/10/2025 5:19 AM EST Narrative [facility] - 01/10/2025 11:55 AM EST Test performed by LC-MS/MS at the [facility]. This test was developed and its performance characteristics determined by [facility]. It has not been cleared or approved by the FDA. The laboratory is regulated under CLIA as qualified to perform high-complexity testing. This test is used for clinical purposes. Test performed by LC-MS/MS at the [facility]. This test was developed and its performance characteristics determined by [facility]. It has not been cleared or approved by the FDA. The laboratory is regulated under CLIA as qualified to perform high-complexity testing. This test is used for clinical purposes. Maciel Olson MD LAB BLOOD ORDERABLES Final Resul t [facility] [address] [place] [address] * POCT glucose meter (01/10/2025 12:35 AM EST) POCT Glucose 93 74 - 99 mg/dL 01/10/2025 12:37 AM EST [facility] Comment:Accuracy of [...] 01/10/2025 12:37 AM EST [facility] 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 Machine Operator Helper ID Anay Rodriguez 01/10/2025 12:37 AM EST [facility] Device ID [id number] 01/10/2025 12:37 AM EST [facility] Specimen Type POC Capillary 01/10/2025 12:37 AM EST [facility] Blood Capillary blood specimen / Unknown 01/10/2025 12:35 AM EST 01/10/2025 12:37 AM EST Maciel Olson MD LAB POINT OF CARE TE ST DOCKED DEVICE UNSOLICITED RESULTS Final Result Performing Organization Address City/State/[facility] Co de Phone Number [facility] [address] [place] [address] * POCT glucose meter (01/10/2025 12:05 AM EST) Pathologist [facility] POCT Glucose 87 74 - 99 mg/dL 01/10/2025 12:06 AM EST [facility] Comment:Accuracy of [...] 01/10/2025 12:06 AM EST [facility] 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 Machine Operator Helper ID Anay Rodriguez 01/10/2025 12:06 AM EST [facility] Device ID [id number] 01/10/2025 12:06 AM EST [facility] Specimen Type POC Capillary 01/10/2025 12:06 AM EST [facility] Blood Capillary blood specimen / Unknown 01/10/2025 12:05 AM EST 01/10/2025 12:06 AM EST Maciel Olson MD LAB POINT OF CARE TE ST DOCKED DEVICE UNSOLICITED RESULTS Final Result Performing Organization Address [facility] de Phone Number [facility] [address] [place] [address] * (ABNORMAL) POCT glucose meter (01/09/2025 7:52 PM EST) POCT Glucose 111(H) 74 - 99 mg/dL 01/09/2025 7:53 PM EST [facility] Comment:Accuracy of [...] 01/09/2025 7:53 PM EST [facility] 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 Machine Operator Helper ID Shaina Haines 01/09/2025 7:53 PM EST [facility] Device ID [id number] 01/09/2025 7:53 PM EST [facility] Specimen Type POC Capillary 01/09/2025 7:53 PM EST [facility] Blood Capillary blood specimen / Unknown 01/09/2025 7:52 PM EST 01/09/2025 7:53 PM EST us Maciel Olson MD LAB POINT OF CARE TE ST DOCKED DEVICE UNSOLICITED RESULTS Final Result Performing Organization Address City/[facility] Co de Phone Number [facility] [address] [place] [address] * POCT glucose meter (01/09/2025 5:02 PM EST) Pathologist [facility] POCT Glucose 99 74 - 99 mg/dL [...] for testing. Comment 01/09/2025 5:03 PM EST [facility] 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 Machine Operator Helper ID Dominic Canchola 01/09/2025 5:03 PM EST [facility] Device ID [id number] 01/09/2025 5:03 PM EST [facility] Specimen Type POC Capillary 01/09/2025 5:03 PM EST [facility] Blood Capillary blood specimen / Unknown 01/09/2025 5:02 PM EST 01/09/2025 5:03 PM EST us Maciel Olson MD LAB POINT OF CARE TE ST DOCKED DEVICE UNSOLICITED RESULTS Final Result Performing Organization Address [facility] Co de Phone Number [facility] [address] [place] [address] * (ABNORMAL) POCT glucose meter (01/09/2025 11:23 AM EST) POCT Glucose 152(H) 74 - 99 mg/dL 01/09/2025 11:25 AM EST [facility] Comment:Accuracy of a glucos e result [...] 01/09/2025 11:25 AM EST [facility] 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 Machine Operator Helper ID Dominic Canchola 01/09/2025 11:25 AM EST [facility] Device ID [id number] 01/09/2025 11:25 AM EST [facility] Specimen Type POC Capillary 01/09/2025 11:25 AM EST [facility] Blood Capillary blood specimen / Unknown 01/09/2025 11:23 AM EST 01/09/2025 11:25 AM EST us Maciel Olson MD LAB POINT OF CARE TE ST DOCKED DEVICE UNSOLICITED RESULTS Final Result Performing Organization Address City/[facility]/ZIP Co de Phone Number [facility] [address] [place] [address] * (ABNORMAL) POCT glucose meter (01/09/2025 8:00 AM EST) [facility] POCT Glucose 125(H) 74 - 99 mg/dL [...] 01/09/2025 8:02 AM EST [facility] 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 Machine Operator Helper ID Dominic Canchola 01/09/2025 8:02 AM EST [facility] Device ID [id number] 01/09/2025 8:02 AM EST [facility] Specimen Type POC Capillary 01/09/2025 8:02 AM EST [facility] Blood Capillary blood specimen / Unknown 01/09/2025 8:00 AM EST 01/09/2025 8:02 AM EST Maciel Olson MD LAB POINT OF CARE TE ST DOCKED DEVICE UNSOLICITED RESULTS Final Result Performing Organization Address City/State/[facility] Co de Phone Number [facility] [address] [place] [address] * (ABNORMAL) POCT glucose meter (01/09/2025 5:38 AM EST) [facility] POCT Glucose 116(H) 74 - 99 mg/dL 01/09/2025 5:39 AM EST [facility] Comment:Accuracy of [...] for testing. Comment 01/09/2025 5:39 AM EST [facility] 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 Machine Operator Helper ID Elver Medel 01/09/2025 5:39 AM EST [facility] Device ID [id number] 01/09/2025 5:39 AM EST [facility] Specimen Type POC Capillary 01/09/2025 5:39 AM EST [facility] Blood Capillary blood specimen / Unknown 01/09/2025 5:38 AM EST 01/09/2025 5:39 AM EST us Maciel Olson MD LAB POINT OF CARE TE ST DOCKED DEVICE UNSOLICITED RESULTS Final Result Performing Organization Address City/[facility]/ZIP Co de Phone Number [facility] [address] [place] [address] * Phosphorus (01/09/2025 5:13 AM EST) Phosphorus, Plasma 3.0 2.5 - 4.5 mg/dL 01/09/2025 6:59 AM EST [facility] Blood Venous blood specimen / Unknown 01/09/2025 5:13 AM EST 01/09/2025 5:13 AM EST us Maciel Olson MD LAB BLOOD ORDERABLES Final Resul t Performing Organization Address City/[facility] Co de Phone Number [facility] [address] [place] [address] * Magnesium (01/09/2025 5:13 AM EST) Magnesium, Plasma 1.9 1.9 - 2.4 mg/dL 01/09/2025 6:59 AM EST [facility] Blood Venous blood specimen / Unknown 01/09/2025 5:13 AM EST 01/09/2025 5:13 AM EST us Maciel Olson MD LAB BLOOD ORDERABLES Final Resul t Performing Organization Address City/[facility] Co de Phone Number [facility] [address] [place] [address] * (ABNORMAL) Comprehensive metabolic panel (01/09/2025 5:13 AM EST) Glucose, Plasma 96 74 - 99 mg/dL 01/09/2025 6:59 AM EST [facility] BUN, Plasma 55(H) 7 - 21 mg/dL 01/09/2025 6:59 AM EST [facility] Creatinine, Plasma 1.67(H) 0.70 - 1.20 mg/dL 01/09/2025 6:59 AM [facility] BUN/Creatinine Ratio 33 01/09/2025 6:59 AM [facility] Sodium, Plasma 135(L) 136 - 145 mmol/L 01/09/2025 6:59 AM [facility] Potassium, Plasma 4.1 3.6 - 4.9 mmol/L 01/09/2025 6:59 AM [facility] Chloride, Plasma 107 97 - 107 mmol/L 01/09/2025 6:59 AM [facility] CO2, Plasma 20(L) 22 - 29 mmol/L 01/09/2025 6:59 AM [facility] Anion Gap 8 6 - 16 mmol/L 01/09/2025 6:59 AM [facility] Total Calcium, Plasma 8.2(L) 8.9 - 10.2 mg/dL 01/09/2025 6:59 AM [facility] Total Protein 4.6(L) 6.3 - 7.9 g/dL 01/09/2025 6:59 AM [facility] Albumin, Plasma 2.9(L) 3.5 - 5.2 g/dL 01/09/2025 6:59 AM [facility] AST, Plasma 45 10 - 50 U/L 01/09/2025 6:59 AM [facility] Comment:Hemolyzed, result ma y be falsely increased. ALT, Plasma 112(H) 10 - 50 U/L 01/09/2025 6:59 AM [facility] Alkaline Phosphatase, Plasma 68 40 - 115 U/L 01/09/2025 6:59 AM [facility] Total Bilirubin, Plasma 2.8(H) 0.2 - 1.1 mg/dL 01/09/2025 6:59 AM [facility] eGFRcr 51.1 mL/min/1.7 3m*2 01/09/2025 6:59 AM [facility] Comment:Reported eGFRcr in m L/min/1.73m2 is based the CKD-EPI 2020 equation that does not use a race coefficient. Blood Venous blood specimen / Unknown 01/09/2025 5:13 AM EST 01/09/2025 5:13 AM EST us Maciel Olson MD LAB BLOOD ORDERABLES Final Resul t [facility] [address] [place] [address] * (ABNORMAL) CBC W/O Differential (01/09/2025 5:13 AM EST) WBC Count 5.04 3.70 - 10.30 10*3/uL LAB HEMATOLOGY METHOD 01/09/2025 7:00 AM EST [facility] RBC Count 2.75(L) 4.60 - 6.10 10*6/uL LAB HEMATOLOGY METHOD 01/09/2025 7:00 AM EST [facility] HGB 8.6(L) 13.7 - 17.5 g/dL LAB HEMATOLOGY METHOD 01/09/2025 7:00 AM EST [facility] HCT 25.7(L) 40.0 - 51.0 % LAB HEMATOLOGY METHOD 01/09/2025 7:00 AM EST [facility] Platelet Count 44(L) 155 - 369 10*3/uL LAB HEMATOLOGY METHOD 01/09/2025 7:00 AM EST [facility] MCV 94 79 - 98 fL LAB HEMATOLOGY METHOD 01/09/2025 7:00 AM EST [facility] MCH 31.3 26.0 - 32.0 pg LAB HEMATOLOGY METHOD 01/09/2025 7:00 AM EST [facility] MCHC 33.5 30.7 - 35.5 g/dL LAB HEMATOLOGY METHOD 01/09/2025 7:00 AM EST [facility] RDW 21.1(H) 11.5 - 14.5 % LAB HEMATOLOGY METHOD 01/09/2025 7:00 AM EST [facility] MPV 10.8 8.8 - 12.5 fL LAB HEMATOLOGY METHOD 01/09/2025 7:00 AM EST [facility] nRBC 0.0 <=0.0 per 100 WBCs LAB HEMATOLOGY METHOD 01/09/2025 7:00 AM EST [facility] Blood Venous blood specimen / Unknown 01/09/2025 5:13 AM EST 01/09/2025 5:13 AM EST us Maciel Olson MD LAB BLOOD ORDERABLES Final Resul t [facility] [address] [place] [address] * Lavender [place] (01/09/2025 5:13 AM EST) Extra Hold for add-ons 01/09/2025 8:01 AM EST [facility] Comment:Auto resulted. Blood Venous blood specimen / Unknown 01/09/2025 5:13 AM EST 01/09/2025 5:13 AM EST us Maciel Olson MD LAB BLOOD ORDERABLES Final Resul t Performing Organization Address City/[facility]/ZIP Co de Phone Number [facility] [facility] [address] [place] [address] * Light Green Top (01/09/2025 5:13 AM EST) Extra Hold for add-ons 01/09/2025 8:01 AM EST [facility] Comment:Auto resulted. Blood Venous blood specimen / Unknown 01/09/2025 5:13 AM EST 01/09/2025 5:13 AM EST us Maciel Olson MD LAB BLOOD ORDERABLES Final Resul t Performing Organization Address City/[facility] Co de Phone Number [facility] [address] [place] [address] * (ABNORMAL) Prothrombin Time/INR (01/09/2025 5:07 AM EST) Prothrombin Time 16.0(H) 12.0 - 14.3 sec LAB COAGULATION METHOD 01/09/2025 5:50 AM EST [facility] INR 1.2(H) 0.9 - 1.1 LAB COAGULATION METHOD 01/09/2025 5:50 AM EST [facility] Blood Venous blood specimen / Unknown Venipuncture / Unknown 01/09/2025 5:07 AM EST 01/09/2025 5:12 AM EST Narrative [facility] - 01/09/2025 5:50 AM EST OPTIMAL INR RANGES FOR PATIENT ON ORAL ANTICOAGULANT THERAPY Prevention of venous thromboembolism INR 2.0 to 3.0 In patients with heart disease: Atrial fibrillation INR 2.0 to 3.0 Valvular heart disease INR 2.0 to 3.0 Tissue heart valves INR 2.0 to 3.0 Mechanical prosthetic valves INR 2.5 to 3.5 Prevention of recurrent ME INR 2.5 to 3.5 Maciel Olson MD LAB BLOOD ORDERABLES Final Resul t [facility] [address] [place] [address] * Tacrolimus (01/09/2025 5:07 AM EST) Tacrolimus 4.0 4.0 - 17.0 ng/mL 01/09/2025 1:21 PM EST [facility] Comment: Tacrolimus therapeutic range: Initial (<3 mo.) Maintenance Kidney 8-13 ng/mL 4-8 ng/mL Liver 8-13 ng/mL 4-8 ng/mL Heart 8-15 ng/mL 7-13 ng/mL Lung;Heart/Lung 8-17 ng/mL 8-13 ng/mL Blood Venous blood specimen / Unknown Venipuncture / Unknown 01/09/2025 5:07 AM EST 01/09/2025 5:12 AM EST Narrative [facility] - 01/09/2025 1:21 PM EST Test performed by LC-MS/MS at the [facility]. This test was developed and its performance characteristics determined by [facility]. It has not been cleared or approved by the FDA. The laboratory is regulated under CLIA as qualified to perform high-complexity testing. This test is used for clinical purposes. Test performed by LC-MS/MS at the [facility]. This test was developed and its performance characteristics determined by [facility]. It has not been cleared or approved by the FDA. The laboratory is regulated under CLIA as qualified to perform high-complexity testing. This test is used for clinical purposes. Maciel Olson MD LAB BLOOD ORDERABLES Final Resul t Performing Organization Address City/[facility]/ZIP Co de Phone Number [facility] [address] [place] [address] * (ABNORMAL) POCT glucose meter (01/08/2025 11:28 PM EST) [facility] POCT Glucose 111(H) 74 - 99 mg/dL 01/08/2025 11:30 PM EST [facility] Comment:Accuracy of [...] for testing. Comment 01/08/2025 11:30 PM EST [facility] 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 Machine Operator Helper ID [employer]ver 01/08/2025 11:30 PM EST [facility] Device ID [id number] 01/08/2025 11:30 PM EST [facility] Specimen Type POC Capillary 01/08/2025 11:30 PM EST [facility] Blood Capillary blood specimen / Unknown 01/08/2025 11:28 PM EST 01/08/2025 11:30 PM EST Maciel Olson MD LAB POINT OF CARE [facility] DOCKED DEVICE UNSOLICITED RESULTS Final Result Performing Organization Address [facility] Co de Phone Number [facility] [address] [place] [address] * (ABNORMAL) POCT glucose meter (01/08/2025 8:09 PM EST) [facility] POCT Glucose 115(H) 74 - 99 [...] 01/08/2025 8:11 PM EST [facility] 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 Machine Operator Helper ID MedelElver 01/08/2025 8:11 PM EST [facility] Device ID [id number] 01/08/2025 8:11 PM EST [facility] Specimen Type POC Capillary 01/08/2025 8:11 PM EST [facility] Blood Capillary blood specimen / Unknown 01/08/2025 8:09 PM EST 01/08/2025 8:11 PM EST us Maciel Olson MD LAB POINT OF CARE TE ST DOCKED DEVICE UNSOLICITED RESULTS Final Result Performing Organization Address City/[facility] Co de Phone Number [facility] [address] [place] [address] * (ABNORMAL) POCT glucose meter (01/08/2025 5:11 PM EST) [facility] POCT Glucose 118(H) 74 - 99 mg/dL 01/08/2025 5:13 PM EST [facility] Comment:Accuracy of a [...] for testing. Comment 01/08/2025 5:13 PM EST [facility] 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 Machine Operator Helper ID India Schultz 01/08/2025 5:13 PM EST [facility] Device ID [id number] 01/08/2025 5:13 PM EST [facility] Specimen Type POC Capillary 01/08/2025 5:13 PM EST [facility] Blood Capillary blood specimen / Unknown 01/08/2025 5:11 PM EST 01/08/2025 5:13 PM EST us Maciel Olson MD LAB POINT OF CARE TE ST DOCKED DEVICE UNSOLICITED RESULTS Final Result Performing Organization Address City/[facility] Co de Phone Number [facility] [address] [place] [address] * XR Chest 1 View (01/08/2025 12:15 [...] airspace disease. Low lung volume. Procedure Note Hermila Tapia MD - 01/08/2025 CLINICAL INDICATION: sob [...] Hermila Tapia MD on 01/08/2025 1:37 PM Maciel Olson MD IMG XR PROCEDURES Final Result * (ABNORMAL) POCT glucose meter (01/08/2025 11:30 AM EST) POCT Glucose 140(H) 74 - 99 mg/dL 01/08/2025 11:32 AM EST [facility] Comment:Accuracy of a glucos e result [...] for testing. Comment 01/08/2025 11:32 AM EST [facility] 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 Machine Operator Helper ID India Schultz 01/08/2025 11:32 AM EST [facility] Device ID [id number] 01/08/2025 11:32 AM EST [facility] Specimen Type POC Capillary 01/08/2025 11:32 AM EST [facility] Blood Capillary blood specimen / Unknown 01/08/2025 11:30 AM EST 01/08/2025 11:32 AM EST us Maciel Olson MD LAB POINT OF CARE TE ST DOCKED DEVICE UNSOLICITED RESULTS Final Result Performing Organization Address City/[facility]/ZIP Co de Phone Number [facility] [address] [place] [address] * Phosphorus, Plasma (01/08/2025 8:21 AM EST) Pathologist [facility] Phosphorus, Plasma 3.1 2.5 - 4.5 mg/dL 01/08/2025 8:56 AM EST [facility] Blood Venous blood specimen / Unknown Venipuncture / Unknown 01/08/2025 8:21 AM EST 01/08/2025 8:27 AM EST us Maciel Olson MD LAB BLOOD ORDERABLES Final Resul t Performing Organization Address City/[facility]/ZIP Co de Phone Number [facility] [address] [place] [address] * (ABNORMAL) CBC and Differential (01/08/2025 8:21 AM EST) WBC Count 5.64 3.70 - 10.30 10*3/uL LAB HEMATOLOGY METHOD 01/08/2025 8:34 AM EST [facility] RBC Count 2.85(L) 4.60 - 6.10 10*6/uL LAB HEMATOLOGY METHOD 01/08/2025 8:34 AM EST [facility] HGB 8.8(L) 13.7 - 17.5 g/dL LAB HEMATOLOGY METHOD 01/08/2025 8:34 AM EST [facility] HCT 25.8(L) 40.0 - 51.0 % LAB HEMATOLOGY METHOD 01/08/2025 8:34 AM EST [facility] Platelet Count 50(L) 155 - 369 10*3/uL LAB HEMATOLOGY METHOD 01/08/2025 8:34 AM EST [facility] MCV 91 79 - 98 fL LAB HEMATOLOGY METHOD 01/08/2025 8:34 AM EST [facility] MCH 30.9 26.0 - 32.0 pg LAB HEMATOLOGY METHOD 01/08/2025 8:34 AM EST [facility] MCHC 34.1 30.7 - 35.5 g/dL LAB HEMATOLOGY METHOD 01/08/2025 8:34 AM [facility] RDW 20.4(H) 11.5 - 14.5 % LAB HEMATOLOGY METHOD 01/08/2025 8:34 AM [facility] MPV 10.0 8.8 - 12.5 fL LAB HEMATOLOGY METHOD 01/08/2025 8:34 AM EST [facility] nRBC 0.0 <=0.0 per 100 WBCs LAB HEMATOLOGY METHOD 01/08/2025 8:34 AM EST [facility] Differential Type Automated LAB HEMATOLOGY METHOD 01/08/2025 8:34 AM [facility] Neutrophils % 79 % LAB HEMATOLOGY METHOD 01/08/2025 8:34 AM [facility] Lymphocytes % 5 % LAB HEMATOLOGY METHOD 01/08/2025 8:34 AM [facility] Monocytes % 15 % LAB HEMATOLOGY METHOD 01/08/2025 8:34 AM [facility] Eosinophils % 0 % LAB HEMATOLOGY METHOD 01/08/2025 8:34 AM [facility] Basophils % 0 % LAB HEMATOLOGY METHOD 01/08/2025 8:34 AM [facility] Immature Granulocytes % 1 % LAB HEMATOLOGY METHOD 01/08/2025 8:34 AM [facility] Neutrophils Absolute 4.50 1.60 - 6.10 10*3/uL LAB HEMATOLOGY METHOD 01/08/2025 8:34 AM EST [facility] Lymphocytes Absolute 0.28(L) 1.20 - 3.90 10*3/uL LAB HEMATOLOGY METHOD 01/08/2025 8:34 AM [facility] Monocytes Absolute 0.82 0.30 - 0.90 10*3/uL LAB HEMATOLOGY METHOD 01/08/2025 8:34 AM [facility] Eosinophils Absolute 0.01 0.00 - 0.50 10*3/uL LAB HEMATOLOGY METHOD 01/08/2025 8:34 AM [facility] Basophils Absolute 0.00 0.00 - 0.10 10*3/uL LAB HEMATOLOGY METHOD 01/08/2025 8:34 AM [facility] Immature Granulocytes Absolute 0.03 0.00 - 0.06 10*3/uL LAB HEMATOLOGY METHOD 01/08/2025 8:34 AM EST [facility] Blood Venous blood specimen / Unknown Venipuncture / Unknown 01/08/2025 8:21 AM EST 01/08/2025 8:27 AM EST Narrative [facility] - 01/08/2025 8:34 AM EST Therapeutic decision making should be based on absolute values, rather than percentages. us Maciel Olson MD LAB BLOOD ORDERABLES Final Resul t [facility] [address] [place] [address] * (ABNORMAL) Comprehensive metabolic panel (01/08/2025 8:21 AM EST) Glucose, Plasma 113(H) 74 - 99 mg/dL 01/08/2025 8:56 AM EST [facility] BUN, Plasma 65(H) 7 - 21 mg/dL 01/08/2025 8:56 AM EST [facility] Creatinine, Plasma 1.82(H) 0.70 - 1.20 mg/dL 01/08/2025 8:56 AM EST [facility] BUN/Creatinine Ratio 36 01/08/2025 8:56 AM EST [facility] Sodium, Plasma 136 136 - 145 mmol/L 01/08/2025 8:56 AM EST [facility] Potassium, Plasma 4.3 3.6 - 4.9 mmol/L 01/08/2025 8:56 AM EST [facility] Chloride, Plasma 107 97 - 107 mmol/L 01/08/2025 8:56 AM EST [facility] CO2, Plasma 19(L) 22 - 29 mmol/L 01/08/2025 8:56 AM EST [facility] Anion Gap 10 6 - 16 mmol/L 01/08/2025 8:56 AM EST [facility] Total Calcium, Plasma 8.2(L) 8.9 - 10.2 mg/dL 01/08/2025 8:56 AM EST [facility] Total Protein 4.8(L) 6.3 - 7.9 g/dL 01/08/2025 8:56 AM EST [facility] Albumin, Plasma 2.9(L) 3.5 - 5.2 g/dL 01/08/2025 8:56 AM EST [facility] AST, Plasma 44 10 - 50 U/L 01/08/2025 8:56 AM EST [facility] ALT, Plasma 104(H) 10 - 50 U/L 01/08/2025 8:56 AM EST [facility] Alkaline Phosphatase, Plasma 71 40 - 115 U/L 01/08/2025 8:56 AM EST [facility] Total Bilirubin, Plasma 2.9(H) 0.2 - 1.1 mg/dL 01/08/2025 8:56 AM EST [facility] eGFRcr 46.1 mL/min/1.7 3m*2 01/08/2025 8:56 AM EST [facility] Comment:Reported eGFRcr in m L/min/1.73m2 is based the CKD-EPI 2020 equation that does not use a race coefficient. Blood Venous blood specimen / Unknown Venipuncture / Unknown 01/08/2025 8:21 AM EST 01/08/2025 8:27 AM EST Maciel Olson MD LAB BLOOD ORDERABLES Final Resul t Performing Organization Address City/[facility]/ZIP Co de Phone Number [facility] [address] [place] [address] * Magnesium, Plasma (01/08/2025 8:21 AM EST) Magnesium, Plasma 2.3 1.9 - 2.4 mg/dL 01/08/2025 8:56 AM EST [facility] Blood Venous blood specimen / Unknown Venipuncture / Unknown 01/08/2025 8:21 AM EST 01/08/2025 8:27 AM EST us Maciel Olson MD LAB BLOOD ORDERABLES Final Resul t [facility] [address] [place] [address] * (ABNORMAL) POCT glucose meter (01/08/2025 8:04 AM EST) Pathologist [facility] POCT Glucose 122(H) 74 - 99 mg/dL 01/08/2025 8:14 AM EST [facility] Comment:Accuracy of [...] for testing. Comment 01/08/2025 8:14 AM EST [facility] 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 Machine Operator Helper ID India Schultz 01/08/2025 8:14 AM EST [facility] Device ID [id number] 01/08/2025 8:14 AM EST [facility] Specimen Type POC Capillary 01/08/2025 8:14 AM EST [facility] Blood Capillary blood specimen / Unknown 01/08/2025 8:04 AM EST 01/08/2025 8:14 AM EST us Maciel Olson MD LAB POINT OF CARE TE ST DOCKED DEVICE UNSOLICITED RESULTS Final Result Performing Organization Address City/State/[facility] de Phone Number [facility] [address] [place] [address] * (ABNORMAL) POCT glucose meter (01/08/2025 6:36 AM EST) [facility] POCT Glucose 125(H) 74 - 99 mg/dL 01/08/2025 6:41 AM EST [facility] Comment:Accuracy of [...] for testing. Comment 01/08/2025 6:41 AM EST [facility] 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 Machine Operator Helper ID Zachery Villarreal 01/08/2025 6:41 AM EST [facility] Device ID [id number] 01/08/2025 6:41 AM EST [facility] Specimen Type POC Capillary 01/08/2025 6:41 AM EST [facility] Blood Capillary blood specimen / Unknown 01/08/2025 6:36 AM EST 01/08/2025 6:41 AM EST Maciel Olson MD LAB POINT OF CARE TE ST DOCKED DEVICE UNSOLICITED RESULTS Final Result Performing Organization Address City/[facility]/ZIP Nm de Phone Number [facility] [address] [place] [address] * Tacrolimus (01/08/2025 5:05 AM EST) Tacrolimus 5.8 4.0 - 17.0 ng/mL 01/08/2025 1:07 PM EST [facility] Comment: Tacrolimus therapeutic range: Initial (<3 mo.) Maintenance Kidney 8-13 ng/mL 4-8 ng/mL Liver 8-13 ng/mL 4-8 ng/mL Heart 8-15 ng/mL 7-13 ng/mL Lung;Heart/Lung 8-17 ng/mL 8-13 ng/mL Blood Venous blood specimen / Unknown Venipuncture / Unknown 01/08/2025 5:05 AM EST 01/08/2025 5:11 AM EST Narrative [facility] - 01/08/2025 1:07 PM EST Test performed by LC-MS/MS at the [facility]. This test was developed and its performance characteristics determined by [facility]. It has not been cleared or approved by the FDA. The laboratory is regulated under CLIA as qualified to perform high-complexity testing. This test is used for clinical purposes. Test performed by LC-MS/MS at the [facility]. This test was developed and its performance characteristics determined by [facility]. It has not been cleared or approved by the FDA. The laboratory is regulated under CLIA as qualified to perform high-complexity testing. This test is used for clinical purposes. Maciel Olson MD LAB BLOOD ORDERABLES Final Resul t [facility] [address] [place] [address] * (ABNORMAL) Prothrombin Time/INR (01/08/2025 5:04 AM EST) Prothrombin Time 16.1(H) 12.0 - 14.3 sec LAB COAGULATION METHOD 01/08/2025 5:33 AM EST [facility] INR 1.3(H) 0.9 - 1.1 LAB COAGULATION METHOD 01/08/2025 5:33 AM EST [facility] Blood Venous blood specimen / Unknown Venipuncture / Unknown 01/08/2025 5:04 AM EST 01/08/2025 5:11 AM EST Narrative [facility] - 01/08/2025 5:33 AM EST OPTIMAL INR RANGES FOR PATIENT ON ORAL ANTICOAGULANT THERAPY Prevention of venous thromboembolism INR 2.0 to 3.0 In patients with heart disease: Atrial fibrillation INR 2.0 to 3.0 Valvular heart disease INR 2.0 to 3.0 Tissue heart valves INR 2.0 to 3.0 Mechanical prosthetic valves INR 2.5 to 3.5 Prevention of recurrent ME INR 2.5 to 3.5 Maciel Olson MD LAB BLOOD ORDERABLES Final Resul t Performing Organization Address City/[facility]/ZIP Co de Phone Number [facility] [address] [place] [address] * Lavender Top (01/08/2025 4:56 AM EST) Pathologist [facility] Extra Hold for add-ons 01/08/2025 8:01 AM EST [facility] Comment:Auto resulted. Blood Venous blood specimen / Unknown 01/08/2025 4:56 AM EST 01/08/2025 5:11 AM EST Maciel Olson MD LAB BLOOD ORDERABLES Final Resul t [facility] [address] [place] [address] * (ABNORMAL) POCT glucose meter (01/07/2025 11:52 PM EST) Pathologist [facility] POCT Glucose 135(H) 74 - 99 mg/dL 01/08/2025 12:00 AM EST [facility] Comment:Accuracy of a glucos e result [...] for testing. Comment 01/08/2025 12:00 AM EST [facility] 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 Machine Operator Helper ID Darryl Kinsey [id number] 12:00 AM EST [facility] Device ID [id number] 01/08/2025 12:00 AM EST [facility] Specimen Type POC Capillary 01/08/2025 12:00 AM EST [facility] Blood Capillary blood specimen / Unknown 01/07/2025 11:52 PM EST 01/08/2025 12:00 AM EST us Maciel Olson MD LAB POINT OF CARE TE ST DOCKED DEVICE UNSOLICITED RESULTS Final Result Performing Organization Address City/[facility] Phone Number [facility] [address] [place] [address] * (ABNORMAL) POCT glucose meter (01/07/2025 8:57 PM EST) 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 ID Darryl Kinsey 025 8:59 PM EST [facility] Device ID [id number] 01/07/2025 8:59 PM EST [facility] Specimen Type POC Capillary 01/07/2025 8:59 PM EST [facility] Blood Capillary blood specimen / Unknown 01/07/2025 8:57 PM EST 01/07/2025 8:59 PM EST us Maciel Olson MD LAB POINT OF CARE TE ST DOCKED DEVICE UNSOLICITED RESULTS Final Result [facility] [address] [place] [address] * Phosphorus, Plasma (01/07/2025 5:54 PM EST) Phosphorus, Plasma 3.7 2.5 - 4.5 mg/dL 01/07/2025 6:33 PM EST [facility] Blood Venous blood specimen / Unknown Venipuncture / Unknown 01/07/2025 5:54 PM EST 01/07/2025 6:02 PM EST us Maciel Olson MD LAB BLOOD ORDERABLES Final Resul t Performing Organization Address City/[facility]/ZIP Co de Phone Number [facility] [address] [place] [address] * Magnesium, Plasma (01/07/2025 5:54 PM EST) Magnesium, Plasma 2.4 1.9 - 2.4 mg/dL 01/07/2025 6:33 PM EST [facility] Blood Venous blood specimen / Unknown Venipuncture / Unknown 01/07/2025 5:54 PM EST 01/07/2025 6:02 PM EST us Maciel Olson MD LAB BLOOD ORDERABLES Final Resul t Performing Organization Address City/[facility]/ZIP Co de Phone Number [facility] [address] [place] [address] * (ABNORMAL) Comprehensive metabolic panel (01/07/2025 5:54 PM EST) Glucose, Plasma 159(H) 74 - 99 mg/dL 01/07/2025 6:33 PM EST [facility] BUN, Plasma 67(H) 7 - 21 mg/dL 01/07/2025 6:33 PM EST [facility] Creatinine, Plasma 1.89(H) 0.70 - 1.20 mg/dL 01/07/2025 6:33 PM EST [facility] BUN/Creatinine Ratio 35 01/07/2025 6:33 PM EST [facility] Sodium, Plasma 132(L) 136 - 145 mmol/L 01/07/2025 6:33 PM EST [facility] Potassium, Plasma 5.0(H) 3.6 - 4.9 mmol/L 01/07/2025 6:33 PM EST [facility] Chloride, Plasma 104 97 - 107 mmol/L 01/07/2025 6:33 PM EST [facility] CO2, Plasma 17(L) 22 - 29 mmol/L 01/07/2025 6:33 PM EST [facility] Anion Gap 11 6 - 16 mmol/L 01/07/2025 6:33 PM EST [facility] Total Calcium, Plasma 8.1(L) 8.9 - 10.2 mg/dL 01/07/2025 6:33 PM EST [facility] Total Protein 4.9(L) 6.3 - 7.9 g/dL 01/07/2025 6:33 PM EST [facility] Albumin, Plasma 3.0(L) 3.5 - 5.2 g/dL 01/07/2025 6:33 PM EST [facility] AST, Plasma 47 10 - 50 U/L 01/07/2025 6:33 PM [facility] Comment:Hemolyzed, result ma y be falsely increased. ALT, Plasma 104(H) 10 - 50 U/L 01/07/2025 6:33 PM [facility] Alkaline Phosphatase, Plasma 78 40 - 115 U/L 01/07/2025 6:33 PM EST [facility] Total Bilirubin, Plasma 3.1(H) 0.2 - 1.1 mg/dL 01/07/2025 6:33 PM [facility] eGFRcr 44.1 mL/min/1.7 3m*2 01/07/2025 6:33 PM [facility] Comment:Reported eGFRcr in m L/min/1.73m2 is based the CKD-EPI 2020 equation that does not use a race coefficient. Blood Venous blood specimen / Unknown Venipuncture / Unknown 01/07/2025 5:54 PM EST 01/07/2025 6:02 PM EST us Maciel Olson MD LAB BLOOD ORDERABLES Final Resul t [facility] [address] [place] [address] * (ABNORMAL) CBC and Differential (01/07/2025 5:54 PM EST) WBC Count 3.86 3.70 - 10.30 10*3/uL LAB HEMATOLOGY METHOD 01/07/2025 6:16 PM EST [facility] RBC Count 2.81(L) 4.60 - 6.10 10*6/uL LAB HEMATOLOGY METHOD 01/07/2025 6:16 PM EST [facility] HGB 8.7(L) 13.7 - 17.5 g/dL LAB HEMATOLOGY METHOD 01/07/2025 6:16 PM EST [facility] HCT 25.8(L) 40.0 - 51.0 % LAB HEMATOLOGY METHOD 01/07/2025 6:16 PM EST [facility] Platelet Count 48(L) 155 - 369 10*3/uL LAB HEMATOLOGY METHOD 01/07/2025 6:16 PM EST [facility] MCV 92 79 - 98 fL LAB HEMATOLOGY METHOD 01/07/2025 6:16 PM EST [facility] MCH 31.0 26.0 - 32.0 pg LAB HEMATOLOGY METHOD 01/07/2025 6:16 PM EST [facility] MCHC 33.7 30.7 - 35.5 g/dL LAB HEMATOLOGY METHOD 01/07/2025 6:16 PM EST [facility] RDW 20.0(H) 11.5 - 14.5 % LAB HEMATOLOGY METHOD 01/07/2025 6:16 PM EST [facility] MPV 10.4 8.8 - 12.5 fL LAB HEMATOLOGY METHOD 01/07/2025 6:16 PM EST [facility] nRBC 0.0 <=0.0 per 100 WBCs LAB HEMATOLOGY METHOD 01/07/2025 6:16 PM EST [facility] Differential Type Automated LAB HEMATOLOGY METHOD 01/07/2025 6:16 PM EST [facility] Neutrophils % 87 % LAB HEMATOLOGY METHOD 01/07/2025 6:16 PM EST [facility] Lymphocytes % 6 % LAB HEMATOLOGY METHOD 01/07/2025 6:16 PM EST [facility] Monocytes % 6 % LAB HEMATOLOGY METHOD 01/07/2025 6:16 PM EST [facility] Eosinophils % 0 % LAB HEMATOLOGY METHOD 01/07/2025 6:16 PM EST [facility] Basophils % 0 % LAB HEMATOLOGY METHOD 01/07/2025 6:16 PM EST [facility] Immature Granulocytes % 1 % LAB HEMATOLOGY METHOD 01/07/2025 6:16 PM EST [facility] Neutrophils Absolute 3.39 1.60 - 6.10 10*3/uL LAB HEMATOLOGY METHOD 01/07/2025 6:16 PM EST [facility] Lymphocytes Absolute 0.22(L) 1.20 - 3.90 10*3/uL LAB HEMATOLOGY METHOD 01/07/2025 6:16 PM EST [facility] Monocytes Absolute 0.22(L) 0.30 - 0.90 10*3/uL LAB HEMATOLOGY METHOD 01/07/2025 6:16 PM EST [facility] Eosinophils Absolute 0.00 0.00 - 0.50 10*3/uL LAB HEMATOLOGY METHOD 01/07/2025 6:16 PM EST [facility] Basophils Absolute 0.00 0.00 - 0.10 10*3/uL LAB HEMATOLOGY METHOD 01/07/2025 6:16 PM EST [facility] Immature Granulocytes Absolute 0.03 0.00 - 0.06 10*3/uL LAB HEMATOLOGY METHOD 01/07/2025 6:16 PM EST [facility] Blood Venous blood specimen / Unknown Venipuncture / Unknown 01/07/2025 5:54 PM EST 01/07/2025 6:04 PM EST Narrative [facility] - 01/07/2025 6:16 PM EST Therapeutic decision making should be based on absolute values, rather than percentages. us Maciel Olson MD LAB BLOOD ORDERABLES Final Resul t [facility] [address] [place] [address] * (ABNORMAL) POCT glucose meter (01/07/2025 5:35 PM EST) POCT Glucose 169(H) 74 - 99 mg/dL 01/07/2025 5:37 PM EST [facility] Comment:Accuracy of a glucos e result [...] 01/07/2025 5:37 PM EST [facility] 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 Machine Operator Helper ID India Schultz 01/07/2025 5:37 PM EST [facility] Device ID [id number] 01/07/2025 5:37 PM EST [facility] Specimen Type POC Capillary 01/07/2025 5:37 PM [facility] Blood Capillary blood specimen / Unknown 01/07/2025 5:35 PM EST 01/07/2025 5:37 PM EST us Maciel Olson MD LAB POINT OF CARE TE ST DOCKED DEVICE UNSOLICITED RESULTS Final Result Performing Organization Address City/State/[facility] Co de Phone Number [facility] [address] [place] [address] * (ABNORMAL) POCT glucose meter (01/07/2025 11:37 [...] for testing. Comment 01/07/2025 11:38 AM EST [facility] 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 Machine Operator Helper ID India Schultz 01/07/2025 11:38 AM EST [facility] Device ID [id number] 01/07/2025 11:38 AM EST [facility] Specimen Type POC Capillary 01/07/2025 11:38 AM EST [facility] Blood Capillary blood specimen / Unknown 01/07/2025 11:37 AM EST 01/07/2025 11:38 AM EST us Maciel Olson MD LAB POINT OF CARE TE ST DOCKED DEVICE UNSOLICITED RESULTS Final Result Performing Organization Address City/[facility] Co de Phone Number [facility] [address] [place] [address] * POCT glucose meter (01/07/2025 8:14 AM EST) POCT Glucose 91 74 - 99 mg/dL 01/07/2025 8:15 AM EST [facility] Comment:Accuracy of a glucos e result [...] for testing. Comment 01/07/2025 8:15 AM EST [facility] 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 Machine Operator Helper ID India Schultz 01/07/2025 8:15 AM EST [facility] Device ID [id number] 01/07/2025 8:15 AM EST [facility] Specimen Type POC Capillary 01/07/2025 8:15 AM EST [facility] Blood Capillary blood specimen / Unknown 01/07/2025 8:14 AM EST 01/07/2025 8:15 AM EST us Maciel Olson MD LAB POINT OF CARE TE ST DOCKED DEVICE UNSOLICITED RESULTS Final Result Performing Organization Address [facility] de Phone Number [facility] [address] [place] [address] * Phosphorus, Plasma (01/07/2025 7:31 AM EST) Pathologist [facility] Phosphorus, Plasma 4.4 2.5 - 4.5 mg/dL 01/07/2025 8:09 AM EST [facility] Blood Venous blood specimen / Unknown Venipuncture / Unknown 01/07/2025 7:31 AM EST 01/07/2025 7:39 AM EST us Maciel Olson MD LAB BLOOD ORDERABLES Final Resul t Performing Organization Address City/[facility] Co de Phone Number [facility] [address] [place] [address] * (ABNORMAL) Magnesium, Plasma (01/07/2025 7:31 AM EST) Magnesium, Plasma 2.6(H) 1.9 - 2.4 mg/dL 01/07/2025 8:09 AM EST [facility] Blood Venous blood specimen / Unknown Venipuncture / Unknown 01/07/2025 7:31 AM EST 01/07/2025 7:39 AM EST us Maciel Olson MD LAB BLOOD ORDERABLES Final Resul t [facility] [address] [place] [address] * (ABNORMAL) Comprehensive metabolic panel (01/07/2025 7:31 AM EST) Glucose, Plasma 98 74 - 99 mg/dL 01/07/2025 8:09 AM EST [facility] BUN, Plasma 71(H) 7 - 21 mg/dL 01/07/2025 8:09 AM EST [facility] Creatinine, Plasma 2.10(H) 0.70 - 1.20 mg/dL 01/07/2025 8:09 AM EST [facility] BUN/Creatinine Ratio 34 01/07/2025 8:09 AM EST [facility] Sodium, Plasma 133(L) 136 - 145 mmol/L 01/07/2025 8:09 AM EST [facility] Potassium, Plasma 5.0(H) 3.6 - 4.9 mmol/L 01/07/2025 8:09 AM EST [facility] Chloride, Plasma 104 97 - 107 mmol/L 01/07/2025 8:09 AM EST [facility] CO2, Plasma 18(L) 22 - 29 mmol/L 01/07/2025 8:09 AM EST [facility] Anion Gap 11 6 - 16 mmol/L 01/07/2025 8:09 AM EST [facility] Total Calcium, Plasma 8.2(L) 8.9 - 10.2 mg/dL 01/07/2025 8:09 AM EST [facility] Total Protein 4.7(L) 6.3 - 7.9 g/dL 01/07/2025 8:09 AM EST [facility] Albumin, Plasma 2.9(L) 3.5 - 5.2 g/dL 01/07/2025 8:09 AM EST [facility] AST, Plasma 45 10 - 50 U/L 01/07/2025 8:09 AM EST [facility] ALT, Plasma 96(H) 10 - 50 U/L 01/07/2025 8:09 AM EST [facility] Alkaline Phosphatase, Plasma 69 40 - 115 U/L 01/07/2025 8:09 AM EST [facility] Total Bilirubin, Plasma 3.2(H) 0.2 - 1.1 mg/dL 01/07/2025 8:09 AM EST [facility] eGFRcr 38.8 mL/min/1.7 3m*2 01/07/2025 8:09 AM EST [facility] Comment:Reported eGFRcr in m L/min/1.73m2 is based the CKD-EPI 2020 equation that does not use a race coefficient. Blood Venous blood specimen / Unknown Venipuncture / Unknown 01/07/2025 7:31 AM EST 01/07/2025 7:39 AM EST us Maciel Olson MD LAB BLOOD ORDERABLES Final Resul t [facility] [address] [place] [address] * (ABNORMAL) CBC and Differential (01/07/2025 7:31 AM EST) WBC Count 5.55 3.70 - 10.30 10*3/uL LAB HEMATOLOGY METHOD 01/07/2025 7:46 AM EST [facility] RBC Count 2.74(L) 4.60 - 6.10 10*6/uL LAB HEMATOLOGY METHOD 01/07/2025 7:46 AM EST [facility] HGB 8.6(L) 13.7 - 17.5 g/dL LAB HEMATOLOGY METHOD 01/07/2025 7:46 AM EST [facility] HCT 24.8(L) 40.0 - 51.0 % LAB HEMATOLOGY METHOD 01/07/2025 7:46 AM EST [facility] Platelet Count 49(L) 155 - 369 10*3/uL LAB HEMATOLOGY METHOD 01/07/2025 7:46 AM EST [facility] MCV 91 79 - 98 fL LAB HEMATOLOGY METHOD 01/07/2025 7:46 AM EST [facility] MCH 31.4 26.0 - 32.0 pg LAB HEMATOLOGY METHOD 01/07/2025 7:46 AM EST [facility] MCHC 34.7 30.7 - 35.5 g/dL LAB HEMATOLOGY METHOD 01/07/2025 7:46 AM EST [facility] RDW 20.3(H) 11.5 - 14.5 % LAB HEMATOLOGY METHOD 01/07/2025 7:46 AM EST [facility] MPV 11.1 8.8 - 12.5 fL LAB HEMATOLOGY METHOD 01/07/2025 7:46 AM EST [facility] nRBC 0.0 <=0.0 per 100 WBCs LAB HEMATOLOGY METHOD 01/07/2025 7:46 AM EST [facility] Differential Type Automated LAB HEMATOLOGY METHOD 01/07/2025 7:46 AM [facility] Neutrophils % 76 % LAB HEMATOLOGY METHOD 01/07/2025 7:46 AM [facility] Lymphocytes % 7 % LAB HEMATOLOGY METHOD 01/07/2025 7:46 AM EST [facility] Monocytes % 16 % LAB HEMATOLOGY METHOD 01/07/2025 7:46 AM [facility] Eosinophils % 0 % LAB HEMATOLOGY METHOD 01/07/2025 7:46 AM EST [facility] Basophils % 0 % LAB HEMATOLOGY METHOD 01/07/2025 7:46 AM EST [facility] Immature Granulocytes % 1 % LAB HEMATOLOGY METHOD 01/07/2025 7:46 AM [facility] Neutrophils Absolute 4.26 1.60 - 6.10 10*3/uL LAB HEMATOLOGY METHOD 01/07/2025 7:46 AM EST [facility] Lymphocytes Absolute 0.38(L) 1.20 - 3.90 10*3/uL LAB HEMATOLOGY METHOD 01/07/2025 7:46 AM EST [facility] Monocytes Absolute 0.88 0.30 - 0.90 10*3/uL LAB HEMATOLOGY METHOD 01/07/2025 7:46 AM EST [facility] Eosinophils Absolute 0.00 0.00 - 0.50 10*3/uL LAB HEMATOLOGY METHOD 01/07/2025 7:46 AM EST [facility] Basophils Absolute 0.00 0.00 - 0.10 10*3/uL LAB HEMATOLOGY METHOD 01/07/2025 7:46 AM EST [facility] Immature Granulocytes Absolute 0.03 0.00 - 0.06 10*3/uL LAB HEMATOLOGY METHOD 01/07/2025 7:46 AM EST [facility] Blood Venous blood specimen / Unknown Venipuncture / Unknown 01/07/2025 7:31 AM EST 01/07/2025 7:38 AM EST Narrative [facility] - 01/07/2025 7:46 AM EST Therapeutic decision making should be based on absolute values, rather than percentages. Maciel Olson MD LAB BLOOD ORDERABLES Final Resul t [facility] [address] [place] [address] * (ABNORMAL) POCT glucose meter (01/07/2025 6:02 AM EST) POCT Glucose 104(H) 74 - 99 mg/dL 01/07/2025 7:17 AM EST [facility] Comment:Accuracy of a [...] Comment 01/07/2025 7:17 AM EST [facility] 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 Machine Operator Helper ID Darryl Kinsey [id number] 7:17 AM EST [facility] Device ID [id number] 01/07/2025 7:17 AM EST [facility] Specimen Type POC Capillary 01/07/2025 7:17 AM EST [facility] Blood Capillary blood specimen / Unknown 01/07/2025 6:02 AM EST 01/07/2025 7:17 AM EST us Maciel Olson MD LAB POINT OF CARE TE ST DOCKED DEVICE UNSOLICITED RESULTS Final Result [facility] [address] [place] [address] * Tacrolimus (01/07/2025 4:38 AM EST) Tacrolimus 11.1 4.0 - 17.0 ng/mL 01/07/2025 8:41 AM EST [facility] Comment: Tacrolimus therapeutic range: Initial (<3 mo.) Maintenance Kidney 8-13 ng/mL 4-8 ng/mL Liver 8-13 ng/mL 4-8 ng/mL Heart 8-15 ng/mL 7-13 ng/mL Lung;Heart/Lung 8-17 ng/mL 8-13 ng/mL Blood Venous blood specimen / Unknown Venipuncture / Unknown 01/07/2025 4:38 AM EST 01/07/2025 4:57 AM EST Narrative [facility] - 01/07/2025 8:41 AM EST Test performed by LC-MS/MS at the [facility]. This test was developed and its performance characteristics determined by [facility]. It has not been cleared or approved by the FDA. The laboratory is regulated under CLIA as qualified to perform high-complexity testing. This test is used for clinical purposes. Test performed by LC-MS/MS at the [facility]. This test was developed and its performance characteristics determined by [facility]. It has not been cleared or approved by the FDA. The laboratory is regulated under CLIA as qualified to perform high-complexity testing. This test is used for clinical purposes. Maciel Olson MD LAB BLOOD ORDERABLES Final Resul t [facility] [address] [place] [address] * (ABNORMAL) POCT glucose meter (01/07/2025 12:56 AM EST) POCT Glucose 107(H) 74 - 99 mg/dL 01/07/2025 12:57 AM EST [facility] Comment:Accuracy of a glucos e result [...] for testing. Comment 01/07/2025 12:57 AM EST [facility] 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 Machine Operator Helper ID Isabel Shepherd [id number] 12:57 AM EST [facility] Device ID [id number] 01/07/2025 12:57 AM EST [facility] Specimen Type POC Venous 01/07/2025 12:57 AM EST [facility] Blood Venous blood specimen / Unknown 01/07/2025 12:56 AM EST 01/07/2025 12:57 AM EST us Maciel Olson MD LAB POINT OF CARE TE ST DOCKED DEVICE UNSOLICITED RESULTS Final Result Performing Organization Address [facility] Phone Number [facility] [address] [place] [address] * (ABNORMAL) Prothrombin Time/INR (01/07/2025 12:56 AM EST) [facility] Prothrombin Time 16.5(H) 12.0 - 14.3 sec LAB COAGULATION METHOD 01/07/2025 1:30 AM EST [facility] INR 1.3(H) 0.9 - 1.1 LAB COAGULATION METHOD 01/07/2025 1:30 AM EST [facility] Blood Blood sample taken from central line / Unknown (Central Line) Existing Catheter / Unknown 01/07/2025 12:56 AM EST 01/07/2025 1:01 AM EST Narrative [facility] - 01/07/2025 1:30 AM EST OPTIMAL INR RANGES FOR PATIENT ON ORAL ANTICOAGULANT THERAPY Prevention of venous thromboembolism INR 2.0 to 3.0 In patients with heart disease: Atrial fibrillation INR 2.0 to 3.0 Valvular heart disease INR 2.0 to 3.0 Tissue heart valves INR 2.0 to 3.0 Mechanical prosthetic valves INR 2.5 to 3.5 Prevention of recurrent ME INR 2.5 to 3.5 us Maciel Olson MD LAB BLOOD ORDERABLES Final Resul t Performing Organization Address City/[facility]/ZIP Co de Phone Number [facility] [address] [place] [address] * (ABNORMAL) POCT glucose meter (01/06/2025 6:00 PM EST) [facility] POCT Glucose 130(H) 74 - 99 mg/dL 01/06/2025 6:01 PM EST [facility] Comment:Accuracy of a [...] Comment 01/06/2025 6:01 PM EST [facility] 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 Machine Operator Helper ID Galileo Abdi 6:01 PM EST [facility] Device ID [id number] 01/06/2025 6:01 PM EST [facility] Specimen Type POC Venous 01/06/2025 6:01 PM EST [facility] Blood Venous blood specimen / Unknown 01/06/2025 6:00 PM EST 01/06/2025 6:01 PM EST us Maciel Olson MD LAB POINT OF CARE TE ST DOCKED DEVICE UNSOLICITED RESULTS Final Result Performing Organization Address [facility] Co de Phone Number [facility] [address] [place] [address] * (ABNORMAL) Phosphorus, Plasma (01/06/2025 6:00 PM EST) [facility] Phosphorus, Plasma 5.2(H) 2.5 - 4.5 mg/dL 01/06/2025 6:53 PM EST [facility] Blood Venous blood specimen / Unknown Venipuncture / Unknown 01/06/2025 6:00 PM EST 01/06/2025 6:21 PM EST us Maciel Olson MD LAB BLOOD ORDERABLES Final Resul t Performing Organization Address City/[facility]/ZIP Co de Phone Number [facility] [address] [place] [address] * (ABNORMAL) Magnesium, Plasma (01/06/2025 6:00 PM EST) Magnesium, Plasma 2.6(H) 1.9 - 2.4 mg/dL 01/06/2025 6:53 PM EST [facility] Blood Venous blood specimen / Unknown Venipuncture / Unknown 01/06/2025 6:00 PM EST 01/06/2025 6:21 PM EST us Maciel Olson MD LAB BLOOD ORDERABLES Final Resul t [facility] [address] [place] [address] * (ABNORMAL) Comprehensive metabolic panel (01/06/2025 6:00 PM EST) Glucose, Plasma 121(H) 74 - 99 mg/dL 01/06/2025 6:53 PM EST [facility] BUN, Plasma 67(H) 7 - 21 mg/dL 01/06/2025 6:53 PM EST [facility] Creatinine, Plasma 2.27(H) 0.70 - 1.20 mg/dL 01/06/2025 6:53 PM EST [facility] BUN/Creatinine Ratio 30 01/06/2025 6:53 PM EST [facility] Sodium, Plasma 129(L) 136 - 145 mmol/L 01/06/2025 6:53 PM EST [facility] Potassium, Plasma 4.9 3.6 - 4.9 mmol/L 01/06/2025 6:53 PM EST [facility] Chloride, Plasma 101 97 - 107 mmol/L 01/06/2025 6:53 PM EST [facility] CO2, Plasma 17(L) 22 - 29 mmol/L 01/06/2025 6:53 PM EST [facility] Anion Gap 11 6 - 16 mmol/L 01/06/2025 6:53 PM EST [facility] Total Calcium, Plasma 8.3(L) 8.9 - 10.2 mg/dL 01/06/2025 6:53 PM EST [facility] Total Protein 5.0(L) 6.3 - 7.9 g/dL 01/06/2025 6:53 PM EST [facility] Albumin, Plasma 3.2(L) 3.5 - 5.2 g/dL 01/06/2025 6:53 PM EST [facility] AST, Plasma 51(H) 10 - 50 U/L 01/06/2025 6:53 PM EST [facility] ALT, Plasma 107(H) 10 - 50 U/L 01/06/2025 6:53 PM EST [facility] Alkaline Phosphatase, Plasma 72 40 - 115 U/L 01/06/2025 6:53 PM EST [facility] Total Bilirubin, Plasma 3.7(H) 0.2 - 1.1 mg/dL 01/06/2025 6:53 PM EST [facility] eGFRcr 35.4 mL/min/1.7 3m*2 01/06/2025 6:53 PM EST [facility] Comment:Reported eGFRcr in m L/min/1.73m2 is based the CKD-EPI 2020 equation that does not use a race coefficient. Blood Venous blood specimen / Unknown Venipuncture / Unknown 01/06/2025 6:00 PM EST 01/06/2025 6:21 PM EST us Maciel Olson MD LAB BLOOD ORDERABLES Final Resul t [facility] [address] [place] [address] * (ABNORMAL) CBC and Differential (01/06/2025 6:00 PM EST) WBC Count 5.07 3.70 - 10.30 10*3/uL LAB HEMATOLOGY METHOD 01/06/2025 6:40 PM EST [facility] RBC Count 2.93(L) 4.60 - 6.10 10*6/uL LAB HEMATOLOGY METHOD 01/06/2025 6:40 PM EST [facility] HGB 9.1(L) 13.7 - 17.5 g/dL LAB HEMATOLOGY METHOD 01/06/2025 6:40 PM EST [facility] HCT 26.3(L) 40.0 - 51.0 % LAB HEMATOLOGY METHOD 01/06/2025 6:40 PM EST [facility] Platelet Count 55(L) 155 - 369 10*3/uL LAB HEMATOLOGY METHOD 01/06/2025 6:40 PM EST [facility] MCV 90 79 - 98 fL LAB HEMATOLOGY METHOD 01/06/2025 6:40 PM [facility] MCH 31.1 26.0 - 32.0 pg LAB HEMATOLOGY METHOD 01/06/2025 6:40 PM EST [facility] MCHC 34.6 30.7 - 35.5 g/dL LAB HEMATOLOGY METHOD 01/06/2025 6:40 PM EST [facility] RDW 20.1(H) 11.5 - 14.5 % LAB HEMATOLOGY METHOD 01/06/2025 6:40 PM EST [facility] MPV 10.6 8.8 - 12.5 fL LAB HEMATOLOGY METHOD 01/06/2025 6:40 PM [facility] nRBC 0.0 <=0.0 per 100 WBCs LAB HEMATOLOGY METHOD 01/06/2025 6:40 PM [facility] Differential Type Automated LAB HEMATOLOGY METHOD 01/06/2025 6:40 PM [facility] Neutrophils % 86 % LAB HEMATOLOGY METHOD 01/06/2025 6:40 PM [facility] Lymphocytes % 5 % LAB HEMATOLOGY METHOD 01/06/2025 6:40 PM [facility] Monocytes % 8 % LAB HEMATOLOGY METHOD 01/06/2025 6:40 PM [facility] Eosinophils % 0 % LAB HEMATOLOGY METHOD 01/06/2025 6:40 PM [facility] Basophils % 0 % LAB HEMATOLOGY METHOD 01/06/2025 6:40 PM [facility] Immature Granulocytes % 1 % LAB HEMATOLOGY METHOD 01/06/2025 6:40 PM [facility] Neutrophils Absolute 4.41 1.60 - 6.10 10*3/uL LAB HEMATOLOGY METHOD 01/06/2025 6:40 PM [facility] Lymphocytes Absolute 0.24(L) 1.20 - 3.90 10*3/uL LAB HEMATOLOGY METHOD 01/06/2025 6:40 PM [facility] Monocytes Absolute 0.39 0.30 - 0.90 10*3/uL LAB HEMATOLOGY METHOD 01/06/2025 6:40 PM [facility] Eosinophils Absolute 0.00 0.00 - 0.50 10*3/uL LAB HEMATOLOGY METHOD 01/06/2025 6:40 PM EST [facility] Basophils Absolute 0.00 0.00 - 0.10 10*3/uL LAB HEMATOLOGY METHOD 01/06/2025 6:40 PM EST [facility] Immature Granulocytes Absolute 0.03 0.00 - 0.06 10*3/uL LAB HEMATOLOGY METHOD 01/06/2025 6:40 PM EST [facility] Blood Venous blood specimen / Unknown Venipuncture / Unknown 01/06/2025 6:00 PM EST 01/06/2025 6:29 PM EST Narrative [facility] - 01/06/2025 6:40 PM EST Therapeutic decision making should be based on absolute values, rather than percentages. us Maciel Olson MD LAB BLOOD ORDERABLES Final Resul t [facility] [address] [place] [address] * POCT glucose meter (01/06/2025 5:07 PM EST) POCT Glucose 79 74 - 99 mg/dL 01/06/2025 5:08 PM EST [facility] Comment:Accuracy of a glucos e result [...] for testing. Comment 01/06/2025 5:08 PM EST [facility] 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 Machine Operator Helper ID Galileo Abdi 5:08 PM EST [facility] Device ID [id number] 01/06/2025 5:08 PM EST [facility] Specimen Type POC Venous 01/06/2025 5:08 PM EST [facility] Blood Venous blood specimen / Unknown 01/06/2025 5:07 PM EST 01/06/2025 5:08 PM EST us Maciel Olson MD LAB POINT OF CARE TE ST DOCKED DEVICE UNSOLICITED RESULTS Final Result Performing Organization Address City/[facility]/ZIP Co de Phone Number [facility] [address] [place] [address] * (ABNORMAL) POCT glucose meter (01/06/2025 11:47 AM EST) POCT Glucose 106(H) 74 - 99 mg/dL 01/06/2025 11:49 AM EST [facility] Comment:Accuracy of a glucos e result [...] for testing. Comment 01/06/2025 11:49 AM EST [facility] 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 Machine Operator Helper ID Galileo Abdi 11:49 AM EST [facility] Device ID [id number] 01/06/2025 11:49 AM EST [facility] Specimen Type POC Venous 01/06/2025 11:49 AM EST [facility] Blood Venous blood specimen / Unknown 01/06/2025 11:47 AM EST 01/06/2025 11:49 AM EST Maciel Olson MD LAB POINT OF CARE TE ST DOCKED DEVICE UNSOLICITED RESULTS Final Result Performing Organization Address City/[facility] Co de Phone Number [facility] [address] [place] [address] * (ABNORMAL) Prothrombin Time/INR (01/06/2025 11:44 AM EST) Prothrombin Time 17.0(H) 12.0 - 14.3 sec LAB COAGULATION METHOD 01/06/2025 12:20 PM EST [facility] INR 1.4(H) 0.9 - 1.1 LAB COAGULATION METHOD 01/06/2025 12:20 PM EST [facility] Blood Venous blood specimen / Unknown Venipuncture / Unknown 01/06/2025 11:44 AM EST 01/06/2025 11:55 AM EST Narrative [facility] - 01/06/2025 12:20 PM EST OPTIMAL INR RANGES FOR PATIENT ON ORAL ANTICOAGULANT THERAPY Prevention of venous thromboembolism INR 2.0 to 3.0 In patients with heart disease: Atrial fibrillation INR 2.0 to 3.0 Valvular heart disease INR 2.0 to 3.0 Tissue heart valves INR 2.0 to 3.0 Mechanical prosthetic valves INR 2.5 to 3.5 Prevention of recurrent ME INR 2.5 to 3.5 us Satnam Beckford MD LAB BLOOD ORDERABLES Final Result [facility] [address] [place] [address] * XR Abdomen 1 View (01/06/2025 8:47 [...] MD on 01/06/2025 9:33 AM Kamila Bashir SENIOR DESIGNER IMG XR PROCEDURES Final Resu lt * (ABNORMAL) Phosphorus, Plasma (01/06/2025 7:36 AM EST) Phosphorus, Plasma 5.5(H) 2.5 - 4.5 mg/dL 01/06/2025 8:25 AM EST [facility] Blood Venous blood specimen / Unknown Venipuncture / Unknown 01/06/2025 7:36 AM EST 01/06/2025 7:59 AM EST Maciel Olson MD LAB BLOOD ORDERABLES Final Resul t Performing Organization Address City/[facility]/ZIP Co de Phone Number [facility] [address] [place] [address] * (ABNORMAL) Magnesium, Plasma (01/06/2025 7:36 AM EST) Magnesium, Plasma 2.6(H) 1.9 - 2.4 mg/dL 01/06/2025 8:25 AM EST [facility] Blood Venous blood specimen / Unknown Venipuncture / Unknown 01/06/2025 7:36 AM EST 01/06/2025 7:59 AM EST Maciel Olson MD LAB BLOOD ORDERABLES Final Resul t [facility] [address] [place] [address] * (ABNORMAL) Comprehensive metabolic panel (01/06/2025 7:36 AM EST) Glucose, Plasma 101(H) 74 - 99 mg/dL 01/06/2025 8:25 AM EST [facility] BUN, Plasma 63(H) 7 - 21 mg/dL 01/06/2025 8:25 AM [facility] Creatinine, Plasma 2.22(H) 0.70 - 1.20 mg/dL 01/06/2025 8:25 AM [facility] BUN/Creatinine Ratio 28 01/06/2025 8:25 AM [facility] Sodium, Plasma 129(L) 136 - 145 mmol/L 01/06/2025 8:25 AM [facility] Potassium, Plasma 4.7 3.6 - 4.9 mmol/L 01/06/2025 8:25 AM [facility] Chloride, Plasma 101 97 - 107 mmol/L 01/06/2025 8:25 AM [facility] CO2, Plasma 15(L) 22 - 29 mmol/L 01/06/2025 8:25 AM [facility] Anion Gap 13 6 - 16 mmol/L 01/06/2025 8:25 AM [facility] Total Calcium, Plasma 8.5(L) 8.9 - 10.2 mg/dL 01/06/2025 8:25 AM [facility] Total Protein 5.3(L) 6.3 - 7.9 g/dL 01/06/2025 8:25 AM [facility] Albumin, Plasma 3.3(L) 3.5 - 5.2 g/dL 01/06/2025 8:25 AM [facility] AST, Plasma 64(H) 10 - 50 U/L 01/06/2025 8:25 AM [facility] ALT, Plasma 117(H) 10 - 50 U/L 01/06/2025 8:25 AM [facility] Alkaline Phosphatase, Plasma 68 40 - 115 U/L 01/06/2025 8:25 AM [facility] Total Bilirubin, Plasma 4.1(H) 0.2 - 1.1 mg/dL 01/06/2025 8:25 AM [facility] eGFRcr 36.3 mL/min/1.7 3m*2 01/06/2025 8:25 AM [facility] Comment:Reported eGFRcr in m L/min/1.73m2 is based the CKD-EPI 2020 equation that does not use a race coefficient. Blood Venous blood specimen / Unknown Venipuncture / Unknown 01/06/2025 7:36 AM EST 01/06/2025 7:59 AM EST Maciel Olson MD LAB BLOOD ORDERABLES Final Resul t Performing Organization Address [facility] Co de Phone Number [facility] [address] [place] [address] * (ABNORMAL) Prothrombin Time/INR (01/06/2025 7:36 AM EST) Prothrombin Time 17.6(H) 12.0 - 14.3 sec LAB COAGULATION METHOD 01/06/2025 7:58 AM EST [facility] INR 1.4(H) 0.9 - 1.1 LAB COAGULATION METHOD 01/06/2025 7:58 AM EST [facility] Blood Venous blood specimen / Unknown Venipuncture / Unknown 01/06/2025 7:36 AM EST 01/06/2025 7:43 AM EST Narrative [facility] - 01/06/2025 7:58 AM EST OPTIMAL INR RANGES FOR PATIENT ON ORAL ANTICOAGULANT THERAPY Prevention of venous thromboembolism INR 2.0 to 3.0 In patients with heart disease: Atrial fibrillation INR 2.0 to 3.0 Valvular heart disease INR 2.0 to 3.0 Tissue heart valves INR 2.0 to 3.0 Mechanical prosthetic valves INR 2.5 to 3.5 Prevention of recurrent ME INR 2.5 to 3.5 Satnam Beckford MD LAB BLOOD ORDERABLES Final Result Performing Organization Address City/[facility] Co de Phone Number [facility] [address] [place] [address] * (ABNORMAL) CBC W/O Differential (01/06/2025 7:36 AM EST) WBC Count 6.33 3.70 - 10.30 10*3/uL LAB HEMATOLOGY METHOD 01/06/2025 8:10 AM EST [facility] RBC Count 2.94(L) 4.60 - 6.10 10*6/uL LAB HEMATOLOGY METHOD 01/06/2025 8:10 AM EST [facility] HGB 9.0(L) 13.7 - 17.5 g/dL LAB HEMATOLOGY METHOD 01/06/2025 8:10 AM EST [facility] HCT 26.2(L) 40.0 - 51.0 % LAB HEMATOLOGY METHOD 01/06/2025 8:10 AM EST [facility] Platelet Count 47(L) 155 - 369 10*3/uL LAB HEMATOLOGY METHOD 01/06/2025 8:10 AM EST [facility] MCV 89 79 - 98 fL LAB HEMATOLOGY METHOD 01/06/2025 8:10 AM EST [facility] MCH 30.6 26.0 - 32.0 pg LAB HEMATOLOGY METHOD 01/06/2025 8:10 AM EST [facility] MCHC 34.4 30.7 - 35.5 g/dL LAB HEMATOLOGY METHOD 01/06/2025 8:10 AM EST [facility] RDW 19.9(H) 11.5 - 14.5 % LAB HEMATOLOGY METHOD 01/06/2025 8:10 AM EST [facility] MPV 10.4 8.8 - 12.5 fL LAB HEMATOLOGY METHOD 01/06/2025 8:10 AM EST [facility] nRBC 0.0 <=0.0 per 100 WBCs LAB HEMATOLOGY METHOD 01/06/2025 8:10 AM EST [facility] Blood Venous blood specimen / Unknown Venipuncture / Unknown 01/06/2025 7:36 AM EST 01/06/2025 8:03 AM EST us Satnam Beckford MD LAB BLOOD ORDERABLES Final Result [facility] [address] [place] [address] * Tacrolimus (01/06/2025 5:15 AM EST) Tacrolimus 13.6 4.0 - 17.0 ng/mL 01/06/2025 7:49 AM EST [facility] Comment: Tacrolimus therapeutic range: Initial (<3 mo.) Maintenance Kidney 8-13 ng/mL 4-8 ng/mL Liver 8-13 ng/mL 4-8 ng/mL Heart 8-15 ng/mL 7-13 ng/mL Lung;Heart/Lung 8-17 ng/mL 8-13 ng/mL Blood Venous blood specimen / Unknown Venipuncture / Unknown 01/06/2025 5:15 AM EST 01/06/2025 5:24 AM EST Narrative [facility] - 01/06/2025 7:49 AM EST Test performed by LC-MS/MS at the [facility]. This test was developed and its performance characteristics determined by [facility]. It has not been cleared or approved by the FDA. The laboratory is regulated under CLIA as qualified to perform high-complexity testing. This test is used for clinical purposes. Test performed by LC-MS/MS at the [facility]. This test was developed and its performance characteristics determined by [facility]. It has not been cleared or approved by the FDA. The laboratory is regulated under CLIA as qualified to perform high-complexity testing. This test is used for clinical purposes. Satnam Beckford MD LAB BLOOD ORDERABLES Final Result [facility] [address] [place] [address] * (ABNORMAL) Prothrombin Time/INR (01/06/2025 4:27 AM EST) Prothrombin Time 17.6(H) 12.0 - 14.3 sec LAB COAGULATION METHOD 01/06/2025 5:13 AM EST [facility] INR 1.4(H) 0.9 - 1.1 LAB COAGULATION METHOD 01/06/2025 5:13 AM EST [facility] Blood Venous blood specimen / Unknown Venipuncture / Unknown 01/06/2025 4:27 AM EST 01/06/2025 4:37 AM EST Narrative [facility] - 01/06/2025 5:13 AM EST OPTIMAL INR RANGES FOR PATIENT ON ORAL ANTICOAGULANT THERAPY Prevention of venous thromboembolism INR 2.0 to 3.0 In patients with heart disease: Atrial fibrillation INR 2.0 to 3.0 Valvular heart disease INR 2.0 to 3.0 Tissue heart valves INR 2.0 to 3.0 Mechanical prosthetic valves INR 2.5 to 3.5 Prevention of recurrent ME INR 2.5 to 3.5 us Satnam Beckford MD LAB BLOOD ORDERABLES Final Result [facility] [address] [place] [address] * (ABNORMAL) CBC W/O Differential (01/06/2025 4:27 AM EST) WBC Count 6.02 3.70 - 10.30 10*3/uL LAB HEMATOLOGY METHOD 01/06/2025 4:46 AM EST [facility] RBC Count 2.83(L) 4.60 - 6.10 10*6/uL LAB HEMATOLOGY METHOD 01/06/2025 4:46 AM EST [facility] HGB 8.5(L) 13.7 - 17.5 g/dL LAB HEMATOLOGY METHOD 01/06/2025 4:46 AM EST [facility] HCT 25.1(L) 40.0 - 51.0 % LAB HEMATOLOGY METHOD 01/06/2025 4:46 AM EST [facility] Platelet Count 45(L) 155 - 369 10*3/uL LAB HEMATOLOGY METHOD 01/06/2025 4:46 AM EST [facility] MCV 89 79 - 98 fL LAB HEMATOLOGY METHOD 01/06/2025 4:46 AM EST [facility] MCH 30.0 26.0 - 32.0 pg LAB HEMATOLOGY METHOD 01/06/2025 4:46 AM EST [facility] MCHC 33.9 30.7 - 35.5 g/dL LAB HEMATOLOGY METHOD 01/06/2025 4:46 AM EST [facility] RDW 19.6(H) 11.5 - 14.5 % LAB HEMATOLOGY METHOD 01/06/2025 4:46 AM EST [facility] MPV 10.0 8.8 - 12.5 fL LAB HEMATOLOGY METHOD 01/06/2025 4:46 AM [facility] nRBC 0.0 <=0.0 per 100 WBCs LAB HEMATOLOGY METHOD 01/06/2025 4:46 AM EST [facility] Blood Venous blood specimen / Unknown Venipuncture / Unknown 01/06/2025 4:27 AM EST 01/06/2025 4:37 AM EST Satnam Beckford MD LAB BLOOD ORDERABLES Final Result [facility] [address] [place] [address] * XR Chest 1 View (01/06/2025 2:41 [...] - 99 mg/dL 01/06/2025 12:22 AM EST [facility] Comment:Accuracy of a [...] for testing. Comment 01/06/2025 12:22 AM EST [facility] 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 Machine Operator Helper ID Sarah Montanez 01/06/2025 12:22 AM EST [facility] Device ID [id number] 01/06/2025 12:22 AM EST [facility] Specimen Type POC Arterial 01/06/2025 12:22 AM EST [facility] Blood Arterial blood specimen / Unknown 01/06/2025 12:19 AM EST 01/06/2025 12:22 AM EST Maciel Olson MD LAB POINT OF CARE TE ST DOCKED DEVICE UNSOLICITED RESULTS Final Result Performing Organization Address City/[facility]/ZIP Co de Phone Number [facility] [address] [place] [address] * (ABNORMAL) Phosphorus, Plasma (01/06/2025 12:15 AM EST) Pathologist [facility] Phosphorus, Plasma 5.9(H) 2.5 - 4.5 mg/dL 01/06/2025 1:00 AM EST [facility] Blood Venous blood specimen / Unknown Venipuncture / Unknown 01/06/2025 12:15 AM EST 01/06/2025 12:27 AM EST Maciel Olson MD LAB BLOOD ORDERABLES Final Resul t [facility] [address] [place] [address] * (ABNORMAL) Magnesium, Plasma (01/06/2025 12:15 AM EST) Pathologist [facility] Magnesium, Plasma 2.6(H) 1.9 - 2.4 mg/dL 01/06/2025 1:00 AM EST [facility] Blood Venous blood specimen / Unknown Venipuncture / Unknown 01/06/2025 12:15 AM EST 01/06/2025 12:27 AM EST us Maciel Olson MD LAB BLOOD ORDERABLES Final Resul t [facility] [address] [place] [address] * (ABNORMAL) Comprehensive metabolic panel (01/06/2025 12:15 AM EST) Glucose, Plasma 105(H) 74 - 99 mg/dL 01/06/2025 1:00 AM EST [facility] BUN, Plasma 60(H) 7 - 21 mg/dL 01/06/2025 1:00 AM EST [facility] Creatinine, Plasma 2.21(H) 0.70 - 1.20 mg/dL 01/06/2025 1:00 AM EST [facility] BUN/Creatinine Ratio 27 01/06/2025 1:00 AM EST [facility] Sodium, Plasma 132(L) 136 - 145 mmol/L 01/06/2025 1:00 AM EST [facility] Potassium, Plasma 4.9 3.6 - 4.9 mmol/L 01/06/2025 1:00 AM EST [facility] Chloride, Plasma 103 97 - 107 mmol/L 01/06/2025 1:00 AM EST [facility] CO2, Plasma 17(L) 22 - 29 mmol/L 01/06/2025 1:00 AM EST [facility] Anion Gap 12 6 - 16 mmol/L 01/06/2025 1:00 AM EST [facility] Total Calcium, Plasma 8.5(L) 8.9 - 10.2 mg/dL 01/06/2025 1:00 AM EST [facility] Total Protein 5.1(L) 6.3 - 7.9 g/dL 01/06/2025 1:00 AM EST [facility] Albumin, Plasma 3.2(L) 3.5 - 5.2 g/dL 01/06/2025 1:00 AM EST [facility] AST, Plasma 70(H) 10 - 50 U/L 01/06/2025 1:00 AM EST [facility] ALT, Plasma 116(H) 10 - 50 U/L 01/06/2025 1:00 AM EST [facility] Alkaline Phosphatase, Plasma 57 40 - 115 U/L 01/06/2025 1:00 AM EST [facility] Total Bilirubin, Plasma 4.2(H) 0.2 - 1.1 mg/dL 01/06/2025 1:00 AM EST [facility] eGFRcr 36.5 mL/min/1.7 3m*2 01/06/2025 1:00 AM EST [facility] Comment:Reported eGFRcr in m L/min/1.73m2 is based the CKD-EPI 2020 equation that does not use a race coefficient. Blood Venous blood specimen / Unknown Venipuncture / Unknown 01/06/2025 12:15 AM EST 01/06/2025 12:27 AM EST us Maciel Olson MD LAB BLOOD ORDERABLES Final Resul t [facility] [address] [place] [address] * (ABNORMAL) Prothrombin Time/INR (01/06/2025 12:15 AM EST) Prothrombin Time 17.8(H) 12.0 - 14.3 sec LAB COAGULATION METHOD 01/06/2025 12:49 AM EST [facility] INR 1.4(H) 0.9 - 1.1 LAB COAGULATION METHOD 01/06/2025 12:49 AM EST [facility] Blood Venous blood specimen / Unknown Venipuncture / Unknown 01/06/2025 12:15 AM EST 01/06/2025 12:28 AM EST Narrative [facility] - 01/06/2025 12:49 AM EST OPTIMAL INR RANGES FOR PATIENT ON ORAL ANTICOAGULANT THERAPY Prevention of venous thromboembolism INR 2.0 to 3.0 In patients with heart disease: Atrial fibrillation INR 2.0 to 3.0 Valvular heart disease INR 2.0 to 3.0 Tissue heart valves INR 2.0 to 3.0 Mechanical prosthetic valves INR 2.5 to 3.5 Prevention of recurrent ME INR 2.5 to 3.5 Satnam Beckford MD LAB BLOOD ORDERABLES Final Result [facility] [address] [place] [address] * (ABNORMAL) CBC W/O Differential (01/06/2025 12:15 AM EST) WBC Count 6.50 3.70 - 10.30 10*3/uL LAB HEMATOLOGY METHOD 01/06/2025 12:39 AM EST [facility] RBC Count 2.92(L) 4.60 - 6.10 10*6/uL LAB HEMATOLOGY METHOD 01/06/2025 12:39 AM EST [facility] HGB 8.7(L) 13.7 - 17.5 g/dL LAB HEMATOLOGY METHOD 01/06/2025 12:39 AM EST [facility] HCT 25.7(L) 40.0 - 51.0 % LAB HEMATOLOGY METHOD 01/06/2025 12:39 AM EST [facility] Platelet Count 48(L) 155 - 369 10*3/uL LAB HEMATOLOGY METHOD 01/06/2025 12:39 AM EST [facility] MCV 88 79 - 98 fL LAB HEMATOLOGY METHOD 01/06/2025 12:39 AM EST [facility] MCH 29.8 26.0 - 32.0 pg LAB HEMATOLOGY METHOD 01/06/2025 12:39 AM EST [facility] MCHC 33.9 30.7 - 35.5 g/dL LAB HEMATOLOGY METHOD 01/06/2025 12:39 AM EST [facility] RDW 19.7(H) 11.5 - 14.5 % LAB HEMATOLOGY METHOD 01/06/2025 12:39 AM EST [facility] MPV 10.2 8.8 - 12.5 fL LAB HEMATOLOGY METHOD 01/06/2025 12:39 AM [facility] nRBC 0.0 <=0.0 per 100 WBCs LAB HEMATOLOGY METHOD 01/06/2025 12:39 AM EST [facility] Blood Venous blood specimen / Unknown Venipuncture / Unknown 01/06/2025 12:15 AM EST 01/06/2025 12:27 AM EST Satnam Beckford MD LAB BLOOD ORDERABLES Final Result Performing Organization Address [facility]/ZIP Co de Phone Number [facility] [address] [place] [address] * (ABNORMAL) Prothrombin Time/INR (01/05/2025 8:05 PM EST) Prothrombin Time 18.1(H) 12.0 - 14.3 sec LAB COAGULATION METHOD 01/05/2025 8:55 PM EST [facility] INR 1.5(H) 0.9 - 1.1 LAB COAGULATION METHOD 01/05/2025 8:55 PM EST [facility] Blood Venous blood specimen / Unknown Venipuncture / Unknown 01/05/2025 8:05 PM EST 01/05/2025 8:32 PM EST Narrative [facility] - 01/05/2025 8:55 PM EST OPTIMAL INR RANGES FOR PATIENT ON ORAL ANTICOAGULANT THERAPY Prevention of venous thromboembolism INR 2.0 to 3.0 In patients with heart disease: Atrial fibrillation INR 2.0 to 3.0 Valvular heart disease INR 2.0 to 3.0 Tissue heart valves INR 2.0 to 3.0 Mechanical prosthetic valves INR 2.5 to 3.5 Prevention of recurrent ME INR 2.5 to 3.5 Satnam Beckford MD LAB BLOOD ORDERABLES Final Result Performing Organization Address City/[facility]/ZIP Co de Phone Number [facility] [address] [place] [address] * (ABNORMAL) CBC W/O Differential (01/05/2025 8:05 PM EST) WBC Count 7.09 3.70 - 10.30 10*3/uL LAB HEMATOLOGY METHOD 01/05/2025 8:39 PM EST [facility] RBC Count 2.99(L) 4.60 - 6.10 10*6/uL LAB HEMATOLOGY METHOD 01/05/2025 8:39 PM EST [facility] HGB 8.9(L) 13.7 - 17.5 g/dL LAB HEMATOLOGY METHOD 01/05/2025 8:39 PM EST [facility] HCT 26.0(L) 40.0 - 51.0 % LAB HEMATOLOGY METHOD 01/05/2025 8:39 PM EST [facility] Platelet Count 49(L) 155 - 369 10*3/uL LAB HEMATOLOGY METHOD 01/05/2025 8:39 PM EST [facility] MCV 87 79 - 98 fL LAB HEMATOLOGY METHOD 01/05/2025 8:39 PM EST [facility] MCH 29.8 26.0 - 32.0 pg LAB HEMATOLOGY METHOD 01/05/2025 8:39 PM EST [facility] MCHC 34.2 30.7 - 35.5 g/dL LAB HEMATOLOGY METHOD 01/05/2025 8:39 PM EST [facility] RDW 19.9(H) 11.5 - 14.5 % LAB HEMATOLOGY METHOD 01/05/2025 8:39 PM EST [facility] MPV 10.2 8.8 - 12.5 fL LAB HEMATOLOGY METHOD 01/05/2025 8:39 PM EST [facility] nRBC 0.0 <=0.0 per 100 WBCs LAB HEMATOLOGY METHOD 01/05/2025 8:39 PM EST [facility] Blood Venous blood specimen / Unknown Venipuncture / Unknown 01/05/2025 8:05 PM EST 01/05/2025 8:32 PM EST Satnam Beckford MD LAB BLOOD ORDERABLES Final Result [facility] [address] [place] [address] * (ABNORMAL) POCT glucose meter (01/05/2025 6:31 PM EST) [facility] POCT Glucose 125(H) 74 - 99 mg/dL 01/05/2025 6:33 PM EST [facility] Comment:Accuracy of a glucos e result [...] for testing. Comment 01/05/2025 6:33 PM EST [facility] 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 Machine Operator Helper ID Leo Aguiar 6:33 PM EST [facility] Device ID [id number] 01/05/2025 6:33 PM EST [facility] Specimen Type POC Capillary 01/05/2025 6:33 PM EST [facility] Blood Capillary blood specimen / Unknown 01/05/2025 6:31 PM EST 01/05/2025 6:33 PM EST us Maciel Olson MD LAB POINT OF CARE TE ST DOCKED DEVICE UNSOLICITED RESULTS Final Result Performing Organization Address City/[facility]/ZIP Co de Phone Number [facility] [address] [place] [address] * (ABNORMAL) POCT glucose meter (01/05/2025 3:51 PM EST) [facility] Signature POCT Glucose 109(H) 74 - 99 mg/dL 01/05/2025 3:53 PM EST [facility] Comment:Accuracy of a glucos e result [...] Comment 01/05/2025 3:53 PM EST [facility] 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 Machine Operator Helper ID Leo Aguiar 3:53 PM EST [facility] Device ID [id number] 01/05/2025 3:53 PM EST [facility] Specimen Type POC Arterial 01/05/2025 3:53 PM EST [facility] Blood Arterial blood specimen / Unknown 01/05/2025 3:51 PM EST 01/05/2025 3:53 PM EST us Maciel Olson MD LAB POINT OF CARE TE ST DOCKED DEVICE UNSOLICITED RESULTS Final Result Performing Organization Address City/[facility]/ZIP Co de Phone Number [facility] [address] [place] [address] * (ABNORMAL) Phosphorus, Plasma (01/05/2025 3:49 PM EST) Phosphorus, Plasma 6.1(H) 2.5 - 4.5 mg/dL 01/05/2025 4:39 PM EST [facility] Blood Arterial blood specimen / Unknown Arterial Puncture / Unknown 01/05/2025 3:49 PM EST 01/05/2025 4:07 PM EST us Maciel Olson MD LAB BLOOD ORDERABLES Final Resul t Performing Organization Address [facility]/ZIP Co de Phone Number [facility] [address] [place] [address] * (ABNORMAL) Magnesium, Plasma (01/05/2025 3:49 PM EST) Magnesium, Plasma 2.6(H) 1.9 - 2.4 mg/dL 01/05/2025 4:39 PM EST [facility] Blood Arterial blood specimen / Unknown Arterial Puncture / Unknown 01/05/2025 3:49 PM EST 01/05/2025 4:07 PM EST us Maciel Olson MD LAB BLOOD ORDERABLES Final Resul t Performing Organization Address [facility] Co de Phone Number [facility] [address] [place] [address] * (ABNORMAL) Comprehensive metabolic panel (01/05/2025 3:49 PM EST) Glucose, Plasma 99 74 - 99 mg/dL 01/05/2025 4:39 PM EST [facility] BUN, Plasma 56(H) 7 - 21 mg/dL 01/05/2025 4:39 PM EST [facility] Creatinine, Plasma 2.05(H) 0.70 - 1.20 mg/dL 01/05/2025 4:39 PM EST [facility] BUN/Creatinine Ratio 27 01/05/2025 4:39 PM EST [facility] Sodium, Plasma 134(L) 136 - 145 mmol/L 01/05/2025 4:39 PM EST [facility] Potassium, Plasma 4.7 3.6 - 4.9 mmol/L 01/05/2025 4:39 PM EST [facility] Chloride, Plasma 105 97 - 107 mmol/L 01/05/2025 4:39 PM EST [facility] CO2, Plasma 16(L) 22 - 29 mmol/L 01/05/2025 4:39 PM EST [facility] Anion Gap 13 6 - 16 mmol/L 01/05/2025 4:39 PM EST [facility] Total Calcium, Plasma 8.7(L) 8.9 - 10.2 mg/dL 01/05/2025 4:39 PM EST [facility] Total Protein 5.3(L) 6.3 - 7.9 g/dL 01/05/2025 4:39 PM EST [facility] Albumin, Plasma 3.5 3.5 - 5.2 g/dL 01/05/2025 4:39 PM EST [facility] AST, Plasma 90(H) 10 - 50 U/L 01/05/2025 4:39 PM EST [facility] ALT, Plasma 127(H) 10 - 50 U/L 01/05/2025 4:39 PM EST [facility] Alkaline Phosphatase, Plasma 61 40 - 115 U/L 01/05/2025 4:39 PM EST [facility] Total Bilirubin, Plasma 4.8(H) 0.2 - 1.1 mg/dL 01/05/2025 4:39 PM EST [facility] eGFRcr 40.0 mL/min/1.7 3m*2 01/05/2025 4:39 PM EST [facility] Comment:Reported eGFRcr in m L/min/1.73m2 is based the CKD-EPI 2020 equation that does not use a race coefficient. Blood Arterial blood specimen / Unknown Arterial Puncture / Unknown 01/05/2025 3:49 PM EST 01/05/2025 4:07 PM EST us Maciel Olson MD LAB BLOOD ORDERABLES Final Resul t [facility] [address] [place] [address] * (ABNORMAL) Prothrombin Time/INR (01/05/2025 3:49 PM EST) Prothrombin Time 18.8(H) 12.0 - 14.3 sec LAB COAGULATION METHOD 01/05/2025 4:36 PM EST [facility] INR 1.5(H) 0.9 - 1.1 LAB COAGULATION METHOD 01/05/2025 4:36 PM EST [facility] Blood Arterial blood specimen / Unknown Arterial Puncture / Unknown 01/05/2025 3:49 PM EST 01/05/2025 4:07 PM EST [facility] - 01/05/2025 4:36 PM EST OPTIMAL INR RANGES FOR PATIENT ON ORAL ANTICOAGULANT THERAPY Prevention of venous thromboembolism INR 2.0 to 3.0 In patients with heart disease: Atrial fibrillation INR 2.0 to 3.0 Valvular heart disease INR 2.0 to 3.0 Tissue heart valves INR 2.0 to 3.0 Mechanical prosthetic valves INR 2.5 to 3.5 Prevention of recurrent ME INR 2.5 to 3.5 Satnam Beckford MD LAB BLOOD ORDERABLES Final Result [facility] [address] [place] [address] * (ABNORMAL) CBC W/O Differential (01/05/2025 3:49 PM EST) WBC Count 7.36 3.70 - 10.30 10*3/uL LAB HEMATOLOGY METHOD 01/05/2025 4:39 PM EST [facility] RBC Count 2.86(L) 4.60 - 6.10 10*6/uL LAB HEMATOLOGY METHOD 01/05/2025 4:39 PM EST [facility] HGB 8.7(L) 13.7 - 17.5 g/dL LAB HEMATOLOGY METHOD 01/05/2025 4:39 PM EST [facility] HCT 25.3(L) 40.0 - 51.0 % LAB HEMATOLOGY METHOD 01/05/2025 4:39 PM EST [facility] Platelet Count 42(L) 155 - 369 10*3/uL LAB HEMATOLOGY METHOD 01/05/2025 4:39 PM EST [facility] MCV 89 79 - 98 fL LAB HEMATOLOGY METHOD 01/05/2025 4:39 PM EST [facility] MCH 30.4 26.0 - 32.0 pg LAB HEMATOLOGY METHOD 01/05/2025 4:39 PM EST [facility] MCHC 34.4 30.7 - 35.5 g/dL LAB HEMATOLOGY METHOD 01/05/2025 4:39 PM EST [facility] RDW 19.8(H) 11.5 - 14.5 % LAB HEMATOLOGY METHOD 01/05/2025 4:39 PM EST [facility] MPV 10.4 8.8 - 12.5 fL LAB HEMATOLOGY METHOD 01/05/2025 4:39 PM EST [facility] nRBC 0.0 <=0.0 per 100 WBCs LAB HEMATOLOGY METHOD 01/05/2025 4:39 PM EST [facility] Blood Arterial blood specimen / Unknown Arterial Puncture / Unknown 01/05/2025 3:49 PM EST 01/05/2025 4:22 PM EST Satnam Beckford MD LAB BLOOD ORDERABLES Final Result [facility] [address] [place] [address] * XR Abdomen 1 View (01/05/2025 12:41 [...] slightly increased from prior. Procedure Note Hermila Tapia MD - 01/05/2025 CLINICAL INDICATION: eval for [...] with the final edited report. Drafted by eWs Velez MD on 01/05/2025 1:28 PM Final report signed by Hermila Tapia MD on 01/05/2025 2:18 PM us Maciel Olson MD IMG XR PROCEDURES Final Result * POCT glucose meter (01/05/2025 12:03 PM EST) POCT Glucose 98 74 - 99 mg/dL 01/05/2025 12:04 PM EST [facility] Comment:Accuracy of a glucos e result [...] for testing. Comment 01/05/2025 12:04 PM EST [facility] 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 Machine Operator Helper ID Leo Aguiar 12:04 PM EST [facility] Device ID [id number] 01/05/2025 12:04 PM EST [facility] Specimen Type POC Venous 01/05/2025 12:04 PM EST [facility] Blood Venous blood specimen / Unknown 01/05/2025 12:03 PM EST 01/05/2025 12:04 PM EST us Maciel Olson MD LAB POINT OF CARE TE ST DOCKED DEVICE UNSOLICITED RESULTS Final Result [facility] [address] [place] [address] * (ABNORMAL) Prothrombin Time/INR (01/05/2025 12:00 PM EST) Prothrombin Time 18.9(H) 12.0 - 14.3 sec LAB COAGULATION METHOD 01/05/2025 12:34 PM EST [facility] INR 1.5(H) 0.9 - 1.1 LAB COAGULATION METHOD 01/05/2025 12:34 PM EST [facility] Blood Arterial blood specimen / Unknown Arterial Puncture / Unknown 01/05/2025 12:00 PM EST 01/05/2025 12:11 PM EST Narrative [facility] - 01/05/2025 12:34 PM EST OPTIMAL INR RANGES FOR PATIENT ON ORAL ANTICOAGULANT THERAPY Prevention of venous thromboembolism INR 2.0 to 3.0 In patients with heart disease: Atrial fibrillation INR 2.0 to 3.0 Valvular heart disease INR 2.0 to 3.0 Tissue heart valves INR 2.0 to 3.0 Mechanical prosthetic valves INR 2.5 to 3.5 Prevention of recurrent ME INR 2.5 to 3.5 Satnam Beckford MD LAB BLOOD ORDERABLES Final Result [facility] [address] [place] [address] * (ABNORMAL) CBC W/O Differential (01/05/2025 12:00 PM EST) WBC Count 8.36 3.70 - 10.30 10*3/uL LAB HEMATOLOGY METHOD 01/05/2025 12:26 PM EST [facility] RBC Count 2.90(L) 4.60 - 6.10 10*6/uL LAB HEMATOLOGY METHOD 01/05/2025 12:26 PM EST [facility] HGB 8.9(L) 13.7 - 17.5 g/dL LAB HEMATOLOGY METHOD 01/05/2025 12:26 PM EST [facility] HCT 25.9(L) 40.0 - 51.0 % LAB HEMATOLOGY METHOD 01/05/2025 12:26 PM EST [facility] Platelet Count 44(L) 155 - 369 10*3/uL LAB HEMATOLOGY METHOD 01/05/2025 12:26 PM EST [facility] MCV 89 79 - 98 fL LAB HEMATOLOGY METHOD 01/05/2025 12:26 PM EST [facility] MCH 30.7 26.0 - 32.0 pg LAB HEMATOLOGY METHOD 01/05/2025 12:26 PM EST [facility] MCHC 34.4 30.7 - 35.5 g/dL LAB HEMATOLOGY METHOD 01/05/2025 12:26 PM EST [facility] RDW 19.7(H) 11.5 - 14.5 % LAB HEMATOLOGY METHOD 01/05/2025 12:26 PM EST [facility] MPV 10.1 8.8 - 12.5 fL LAB HEMATOLOGY METHOD 01/05/2025 12:26 PM EST [facility] nRBC 0.0 <=0.0 per 100 WBCs LAB HEMATOLOGY METHOD 01/05/2025 12:26 PM EST [facility] Blood Arterial blood specimen / Unknown Arterial Puncture / Unknown 01/05/2025 12:00 PM EST 01/05/2025 12:19 PM EST Satnam Beckford MD LAB BLOOD ORDERABLES Final Result Performing Organization Address City/State/[facility] Co de Phone Number [facility] [address] [place] [address] * MD CRITICAL CARE, E/M 30-74 MINUTES (01/05/2025 11:03 [...] and ordering and review of radiographic studies us Camilla Soto APRN, DNP IN CLINIC/BEDSIDE ORDERAB LES Final Result * (ABNORMAL) Comprehensive metabolic panel (01/05/2025 8:39 AM EST) Glucose, Plasma 103(H) 74 - 99 mg/dL 01/05/2025 9:14 AM [facility] BUN, Plasma 49(H) 7 - 21 mg/dL 01/05/2025 9:14 AM [facility] Creatinine, Plasma 1.90(H) 0.70 - 1.20 mg/dL 01/05/2025 9:14 AM [facility] BUN/Creatinine Ratio 26 01/05/2025 9:14 AM [facility] Sodium, Plasma 136 136 - 145 mmol/L 01/05/2025 9:14 AM [facility] Potassium, Plasma 4.7 3.6 - 4.9 mmol/L 01/05/2025 9:14 AM [facility] Chloride, Plasma 106 97 - 107 mmol/L 01/05/2025 9:14 AM [facility] CO2, Plasma 16(L) 22 - 29 mmol/L 01/05/2025 9:14 AM [facility] Anion Gap 14 6 - 16 mmol/L 01/05/2025 9:14 AM [facility] Total Calcium, Plasma 8.8(L) 8.9 - 10.2 mg/dL 01/05/2025 9:14 AM [facility] Total Protein 5.5(L) 6.3 - 7.9 g/dL 01/05/2025 9:14 AM [facility] Albumin, Plasma 3.7 3.5 - 5.2 g/dL 01/05/2025 9:14 AM [facility] AST, Plasma 110(H) 10 - 50 U/L 01/05/2025 9:14 AM [facility] ALT, Plasma 138(H) 10 - 50 U/L 01/05/2025 9:14 AM [facility] Alkaline Phosphatase, Plasma 61 40 - 115 U/L 01/05/2025 9:14 AM EST [facility] Total Bilirubin, Plasma 5.4(H) 0.2 - 1.1 mg/dL 01/05/2025 9:14 AM EST [facility] eGFRcr 43.8 mL/min/1.7 3m*2 01/05/2025 9:14 AM EST [facility] Comment:Reported eGFRcr in m L/min/1.73m2 is based the CKD-EPI 2020 equation that does not use a race coefficient. Blood Arterial blood specimen / Unknown Arterial Puncture / Unknown 01/05/2025 8:39 AM EST 01/05/2025 8:46 AM EST Satnam Beckford MD LAB BLOOD ORDERABLES Final Result [facility] [address] [place] [address] * (ABNORMAL) Magnesium, Plasma (01/05/2025 8:39 AM EST) Magnesium, Plasma 2.6(H) 1.9 - 2.4 mg/dL 01/05/2025 9:14 AM EST [facility] Blood Arterial blood specimen / Unknown Arterial Puncture / Unknown 01/05/2025 8:39 AM EST 01/05/2025 8:46 AM EST Satnam Beckford MD LAB BLOOD ORDERABLES Final Result [facility] [address] [place] [address] * (ABNORMAL) Phosphorus, Plasma (01/05/2025 8:39 AM EST) Phosphorus, Plasma 6.0(H) 2.5 - 4.5 mg/dL 01/05/2025 9:14 AM EST [facility] Blood Arterial blood specimen / Unknown Arterial Puncture / Unknown 01/05/2025 8:39 AM EST 01/05/2025 8:46 AM EST Satnam Beckford MD LAB BLOOD ORDERABLES Final Result Performing Organization Address City/[facility]/ZIP Co de Phone Number [facility] [address] [place] [address] * (ABNORMAL) Prothrombin Time/INR (01/05/2025 8:39 AM EST) Prothrombin Time 18.6(H) 12.0 - 14.3 sec LAB COAGULATION METHOD 01/05/2025 9:32 AM EST [facility] INR 1.5(H) 0.9 - 1.1 LAB COAGULATION METHOD 01/05/2025 9:32 AM EST [facility] Blood Arterial blood specimen / Unknown Arterial Puncture / Unknown 01/05/2025 8:39 AM EST 01/05/2025 8:46 AM EST Narrative [facility] - 01/05/2025 9:32 AM EST OPTIMAL INR RANGES FOR PATIENT ON ORAL ANTICOAGULANT THERAPY Prevention of venous thromboembolism INR 2.0 to 3.0 In patients with heart disease: Atrial fibrillation INR 2.0 to 3.0 Valvular heart disease INR 2.0 to 3.0 Tissue heart valves INR 2.0 to 3.0 Mechanical prosthetic valves INR 2.5 to 3.5 Prevention of recurrent ME INR 2.5 to 3.5 Satnam Beckford MD LAB BLOOD ORDERABLES Final Result Performing Organization Address City/[facility] Co de Phone Number [facility] [address] [place] [address] * (ABNORMAL) CBC W/O Differential (01/05/2025 8:39 AM EST) WBC Count 8.94 3.70 - 10.30 10*3/uL LAB HEMATOLOGY METHOD 01/05/2025 8:54 AM EST [facility] RBC Count 2.92(L) 4.60 - 6.10 10*6/uL LAB HEMATOLOGY METHOD 01/05/2025 8:54 AM EST [facility] HGB 8.8(L) 13.7 - 17.5 g/dL LAB HEMATOLOGY METHOD 01/05/2025 8:54 AM EST [facility] HCT 25.5(L) 40.0 - 51.0 % LAB HEMATOLOGY METHOD 01/05/2025 8:54 AM EST [facility] Platelet Count 48(L) 155 - 369 10*3/uL LAB HEMATOLOGY METHOD 01/05/2025 8:54 AM EST [facility] MCV 87 79 - 98 fL LAB HEMATOLOGY METHOD 01/05/2025 8:54 AM EST [facility] MCH 30.1 26.0 - 32.0 pg LAB HEMATOLOGY METHOD 01/05/2025 8:54 AM EST [facility] MCHC 34.5 30.7 - 35.5 g/dL LAB HEMATOLOGY METHOD 01/05/2025 8:54 AM EST [facility] RDW 19.5(H) 11.5 - 14.5 % LAB HEMATOLOGY METHOD 01/05/2025 8:54 AM EST [facility] MPV 10.2 8.8 - 12.5 fL LAB HEMATOLOGY METHOD 01/05/2025 8:54 AM EST [facility] nRBC 0.0 <=0.0 per 100 WBCs LAB HEMATOLOGY METHOD 01/05/2025 8:54 AM EST [facility] Blood Arterial blood specimen / Unknown Arterial Puncture / Unknown 01/05/2025 8:39 AM EST 01/05/2025 8:46 AM EST Satnam Beckford MD LAB BLOOD ORDERABLES Final Result Performing Organization Address City/State/[facility] Co de Phone Number [facility] [address] [place] [address] * (ABNORMAL) POCT glucose meter (01/05/2025 8:38 [...] Comment 01/05/2025 8:40 AM EST [facility] 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 Machine Operator Helper ID Leo Aguiar 8:40 AM EST [facility] Device ID [id number] 01/05/2025 8:40 AM EST [facility] Specimen Type POC Capillary 01/05/2025 8:40 AM EST [facility] Blood Capillary blood specimen / Unknown 01/05/2025 8:38 AM EST 01/05/2025 8:40 AM EST Maciel Olson MD LAB POINT OF CARE TE ST DOCKED DEVICE UNSOLICITED RESULTS Final Result Performing Organization Address City/State/[facility] Co de Phone Number [facility] [address] [place] [address] * Transfuse RBC (01/05/2025 5:53 AM EST) Kelvin Zapata APRN BLOOD TRANSFUSION ORDERAB LES Final Result * Transfuse RBC: 1 Units (01/05/2025 5:53 AM EST) Kelvin Zapata APRN BLOOD TRANSFUSION ORDERAB LES Final Result * Tacrolimus (01/05/2025 5:49 AM EST) Pathologist [facility] Tacrolimus 4.9 4.0 - 17.0 ng/mL 01/05/2025 11:44 AM EST [facility] Comment: Tacrolimus therapeutic range: Initial (<3 mo.) Maintenance Kidney 8-13 ng/mL 4-8 ng/mL Liver 8-13 ng/mL 4-8 ng/mL Heart 8-15 ng/mL 7-13 ng/mL Lung;Heart/Lung 8-17 ng/mL 8-13 ng/mL Blood Arterial blood specimen / Unknown Arterial Puncture / Unknown 01/05/2025 5:49 AM EST 01/05/2025 6:00 AM EST Narrative [facility] - 01/05/2025 11:44 AM EST Test performed by LC-MS/MS at the [facility]. This test was developed and its performance characteristics determined by [facility]. It has not been cleared or approved by the FDA. The laboratory is regulated under CLIA as qualified to perform high-complexity testing. This test is used for clinical purposes. Test performed by LC-MS/MS at the [facility]. This test was developed and its performance characteristics determined by [facility]. It has not been cleared or approved by the FDA. The laboratory is regulated under CLIA as qualified to perform high-complexity testing. This test is used for clinical purposes. Satnam Beckford MD LAB BLOOD ORDERABLES Final Result Performing Organization Address City/[facility]/ZIP Co de Phone Number [facility] [address] [place] [address] * (ABNORMAL) POCT glucose meter (01/05/2025 5:44 AM EST) [facility] POCT Glucose 113(H) 74 - 99 mg/dL 01/05/2025 5:45 AM EST [facility] Comment:Accuracy of a glucos e result [...] for testing. Comment 01/05/2025 5:45 AM EST [facility] 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 Machine Operator Helper ID Shaka Burciaga 01/05/2025 5:45 AM EST [facility] Device ID [id number] 01/05/2025 5:45 AM EST [facility] Specimen Type POC Arterial 01/05/2025 5:45 AM EST [facility] Blood Arterial blood specimen / Unknown 01/05/2025 5:44 AM EST 01/05/2025 5:45 AM EST Satnam Beckford MD LAB POINT OF CARE T EST DOCKED DEVICE UNSOLICITED RESULTS Final Result Performing Organization Address City/[facility]/ZIP Co de Phone Number [facility] [address] [place] [address] * XR Chest 1 View (01/05/2025 5:22 AM EST) Anatomical Region Laterality Modality Chest Digital Radiogra phy Impressions 01/05/2025 9:32 AM EST Interval removal of the Livingston-Héctor catheter. Persistent hypoventilatory changes with slight increase [...] radiograph 01/04/2025. FINDINGS: Interval removal of the Livingston-Héctor catheter. Otherwise, stable support hardware. The contours [...] radiograph 01/04/2025. FINDINGS: Interval removal of the Livingston-Héctor catheter. Otherwise, stable supporthardware. The contours and cardiac silhouette are stable. Persistent lowlung volumes. Right basal opacities is slightly increased. Decreased leftbasal airspace opacities. Unchanged small left pleural effusion. Nopneumothorax. IMPRESSION: Interval removal of the Livingston-Héctor catheter. Persistent hypoventilatory changes with slight increase [...] Units (01/05/2025 4:19 AM EST) Product Code X8739C01 CH BLOO D BANK Dispense Status Transfused BLOOD BANK Blood Expiration Date [id number] BLOOD BANK Unit Number [id number] CH B LOOD BANK Product Blood Type 0600 BLOOD BANK Blood Type A- CH BLOOD BANK Crossmatch Compatible BLOOD BANK Other Kelvin Zapata APRN BLOOD BANK PRODUCT ORDERA BLES Final Result Performing Organization Address City/[facility]/ZIP Co de Phone Number BLO[facility] BANK [address] * (ABNORMAL) Prothrombin Time/INR (01/05/2025 3:54 AM EST) Prothrombin Time 19.4(H) 12.0 - 14.3 sec LAB COAGULATION METHOD 01/05/2025 4:15 AM EST [facility] INR 1.6(H) 0.9 - 1.1 LAB COAGULATION METHOD 01/05/2025 4:15 AM EST [facility] Blood Arterial blood specimen / Unknown Arterial Puncture / Unknown 01/05/2025 3:54 AM EST 01/05/2025 4:02 AM EST Narrative [facility] - 01/05/2025 4:15 AM EST OPTIMAL INR RANGES FOR PATIENT ON ORAL ANTICOAGULANT THERAPY Prevention of venous thromboembolism INR 2.0 to 3.0 In patients with heart disease: Atrial fibrillation INR 2.0 to 3.0 Valvular heart disease INR 2.0 to 3.0 Tissue heart valves INR 2.0 to 3.0 Mechanical prosthetic valves INR 2.5 to 3.5 Prevention of recurrent ME INR 2.5 to 3.5 Satnam Beckford MD LAB BLOOD ORDERABLES Final Result [facility] [address] [place] [address] * (ABNORMAL) CBC W/O Differential (01/05/2025 3:54 AM EST) WBC Count 8.52 3.70 - 10.30 10*3/uL LAB HEMATOLOGY METHOD 01/05/2025 4:15 AM EST [facility] RBC Count 2.59(L) 4.60 - 6.10 10*6/uL LAB HEMATOLOGY METHOD 01/05/2025 4:15 AM EST [facility] HGB 7.8(L) 13.7 - 17.5 g/dL LAB HEMATOLOGY METHOD 01/05/2025 4:15 AM EST [facility] HCT 22.9(L) 40.0 - 51.0 % LAB HEMATOLOGY METHOD 01/05/2025 4:15 AM EST [facility] Platelet Count 48(L) 155 - 369 10*3/uL LAB HEMATOLOGY METHOD 01/05/2025 4:15 AM EST [facility] MCV 88 79 - 98 fL LAB HEMATOLOGY METHOD 01/05/2025 4:15 AM EST [facility] MCH 30.1 26.0 - 32.0 pg LAB HEMATOLOGY METHOD 01/05/2025 4:15 AM EST [facility] MCHC 34.1 30.7 - 35.5 g/dL LAB HEMATOLOGY METHOD 01/05/2025 4:15 AM EST [facility] RDW 19.7(H) 11.5 - 14.5 % LAB HEMATOLOGY METHOD 01/05/2025 4:15 AM EST [facility] MPV 9.9 8.8 - 12.5 fL LAB HEMATOLOGY METHOD 01/05/2025 4:15 AM EST [facility] nRBC 0.0 <=0.0 per 100 WBCs LAB HEMATOLOGY METHOD 01/05/2025 4:15 AM EST [facility] Blood Arterial blood specimen / Unknown Arterial Puncture / Unknown 01/05/2025 3:54 AM EST 01/05/2025 4:02 AM EST us Satnam Beckford MD LAB BLOOD ORDERABLES Final Result [facility] [address] [place] [address] * (ABNORMAL) Comprehensive metabolic panel (01/05/2025 12:06 AM EST) Glucose, Plasma 134(H) 74 - 99 mg/dL 01/05/2025 12:56 AM [facility] BUN, Plasma 44(H) 7 - 21 mg/dL 01/05/2025 12:56 AM [facility] Creatinine, Plasma 1.84(H) 0.70 - 1.20 mg/dL 01/05/2025 12:56 AM [facility] BUN/Creatinine Ratio 24 01/05/2025 12:56 AM [facility] Sodium, Plasma 134(L) 136 - 145 mmol/L 01/05/2025 12:56 AM [facility] Potassium, Plasma 4.6 3.6 - 4.9 mmol/L 01/05/2025 12:56 AM [facility] Chloride, Plasma 105 97 - 107 mmol/L 01/05/2025 12:56 AM [facility] CO2, Plasma 16(L) 22 - 29 mmol/L 01/05/2025 12:56 AM [facility] Anion Gap 13 6 - 16 mmol/L 01/05/2025 12:56 AM [facility] Total Calcium, Plasma 8.5(L) 8.9 - 10.2 mg/dL 01/05/2025 12:56 AM [facility] Total Protein 5.4(L) 6.3 - 7.9 g/dL 01/05/2025 12:56 AM [facility] Albumin, Plasma 3.4(L) 3.5 - 5.2 g/dL 01/05/2025 12:56 AM [facility] AST, Plasma 150(H) 10 - 50 U/L 01/05/2025 12:56 AM [facility] ALT, Plasma 161(H) 10 - 50 U/L 01/05/2025 12:56 AM [facility] Alkaline Phosphatase, Plasma 68 40 - 115 U/L 01/05/2025 12:56 AM [facility] Total Bilirubin, Plasma 5.2(H) 0.2 - 1.1 mg/dL 01/05/2025 12:56 AM [facility] eGFRcr 45.5 mL/min/1.7 3m*2 01/05/2025 12:56 AM [facility] Comment:Reported eGFRcr in m L/min/1.73m2 is based the CKD-EPI 2020 equation that does not use a race coefficient. Blood Arterial blood specimen / Unknown Arterial Puncture / Unknown 01/05/2025 12:06 AM EST 01/05/2025 12:26 AM EST Satnam Beckford MD LAB BLOOD ORDERABLES Final Result Performing Organization Address City/[facility]/ZIP Co de Phone Number [facility] [address] [place] [address] * Magnesium, Plasma (01/05/2025 12:06 AM EST) Magnesium, Plasma 2.4 1.9 - 2.4 mg/dL 01/05/2025 12:56 AM EST [facility] Blood Arterial blood specimen / Unknown Arterial Puncture / Unknown 01/05/2025 12:06 AM EST 01/05/2025 12:26 AM EST Satnam Beckford MD LAB BLOOD ORDERABLES Final Result Performing Organization Address City/[facility] Co de Phone Number [facility] [address] [place] [address] * (ABNORMAL) Phosphorus, Plasma (01/05/2025 12:06 AM EST) Phosphorus, Plasma 6.1(H) 2.5 - 4.5 mg/dL 01/05/2025 12:56 AM EST [facility] Blood Arterial blood specimen / Unknown Arterial Puncture / Unknown 01/05/2025 12:06 AM EST 01/05/2025 12:26 AM EST Satnam Beckford MD LAB BLOOD ORDERABLES Final Result Performing Organization Address City/[facility] Co de Phone Number [facility] [address] [place] [address] * (ABNORMAL) Prothrombin Time/INR (01/05/2025 12:06 AM EST) Prothrombin Time 19.2(H) 12.0 - 14.3 sec LAB COAGULATION METHOD 01/05/2025 12:44 AM EST [facility] INR 1.6(H) 0.9 - 1.1 LAB COAGULATION METHOD 01/05/2025 12:44 AM EST [facility] Blood Arterial blood specimen / Unknown Arterial Puncture / Unknown 01/05/2025 12:06 AM EST 01/05/2025 12:26 AM EST [facility] - 01/05/2025 12:44 AM EST OPTIMAL INR RANGES FOR PATIENT ON ORAL ANTICOAGULANT THERAPY Prevention of venous thromboembolism INR 2.0 to 3.0 In patients with heart disease: Atrial fibrillation INR 2.0 to 3.0 Valvular heart disease INR 2.0 to 3.0 Tissue heart valves INR 2.0 to 3.0 Mechanical prosthetic valves INR 2.5 to 3.5 Prevention of recurrent ME INR 2.5 to 3.5 us Satnam Beckford MD LAB BLOOD ORDERABLES Final Result Performing Organization Address City/State/[facility] Co de Phone Number [facility] [address] [place] [address] * (ABNORMAL) CBC W/O Differential (01/05/2025 12:06 AM EST) WBC Count 10.02 3.70 - 10.30 10*3/uL LAB HEMATOLOGY METHOD 01/05/2025 12:37 AM EST [facility] RBC Count 2.70(L) 4.60 - 6.10 10*6/uL LAB HEMATOLOGY METHOD 01/05/2025 12:37 AM EST [facility] HGB 8.2(L) 13.7 - 17.5 g/dL LAB HEMATOLOGY METHOD 01/05/2025 12:37 AM EST [facility] HCT 23.8(L) 40.0 - 51.0 % LAB HEMATOLOGY METHOD 01/05/2025 12:37 AM EST [facility] Platelet Count 56(L) 155 - 369 10*3/uL LAB HEMATOLOGY METHOD 01/05/2025 12:37 AM EST [facility] MCV 88 79 - 98 fL LAB HEMATOLOGY METHOD 01/05/2025 12:37 AM EST [facility] MCH 30.4 26.0 - 32.0 pg LAB HEMATOLOGY METHOD 01/05/2025 12:37 AM EST [facility] MCHC 34.5 30.7 - 35.5 g/dL LAB HEMATOLOGY METHOD 01/05/2025 12:37 AM EST [facility] RDW 19.9(H) 11.5 - 14.5 % LAB HEMATOLOGY METHOD 01/05/2025 12:37 AM EST [facility] MPV 10.4 8.8 - 12.5 fL LAB HEMATOLOGY METHOD 01/05/2025 12:37 AM EST [facility] nRBC 0.0 <=0.0 per 100 WBCs LAB HEMATOLOGY METHOD 01/05/2025 12:37 AM EST [facility] Blood Arterial blood specimen / Unknown Arterial Puncture / Unknown 01/05/2025 12:06 AM EST 01/05/2025 12:29 AM EST Satnam Beckford MD LAB BLOOD ORDERABLES Final Result Performing Organization Address City/[facility] Co de Phone Number [facility] [address] [place] [address] * Transfuse RBC (01/04/2025 9:31 PM EST) Kelvin Zapata APRN BLOOD TRANSFUSION ORDERAB LES Final Result * Transfuse RBC: 1 Units (01/04/2025 9:31 PM EST) Kelvin Zapata APRN BLOOD TRANSFUSION ORDERAB LES Final Result * Prepare Leukocyte Reduced RBC: 1 Units (01/04/2025 8:13 PM EST) [facility] Signature Product Code [id number] CH BLOO D BANK Dispense Status Transfused BLOOD BANK Blood Expiration Date [id number] BLOOD BANK Unit Number [id number] B LOOD BANK Product Blood Type 0600 BLOOD BANK Blood Type A- BLOOD BANK Crossmatch Compatible BLOOD BANK Other Kelvin Zapata APRN BLOOD BANK PRODUCT ORDERA BLES Final Result Performing Organization Address City/[facility] Co de Phone Number BLOOD BANK [address] [place] [address], [place] * (ABNORMAL) Prothrombin Time/INR (01/04/2025 7:49 PM EST) Prothrombin Time 20.3(H) 12.0 - 14.3 sec LAB COAGULATION METHOD 01/04/2025 8:10 PM EST [facility] INR 1.7(H) 0.9 - 1.1 LAB COAGULATION METHOD 01/04/2025 8:10 PM EST [facility] Blood Arterial blood specimen / Unknown Arterial Puncture / Unknown 01/04/2025 7:49 PM EST 01/04/2025 7:55 PM EST Narrative [facility] - 01/04/2025 8:10 PM EST OPTIMAL INR RANGES FOR PATIENT ON ORAL ANTICOAGULANT THERAPY Prevention of venous thromboembolism INR 2.0 to 3.0 In patients with heart disease: Atrial fibrillation INR 2.0 to 3.0 Valvular heart disease INR 2.0 to 3.0 Tissue heart valves INR 2.0 to 3.0 Mechanical prosthetic valves INR 2.5 to 3.5 Prevention of recurrent ME INR 2.5 to 3.5 us Satnam Beckford MD LAB BLOOD ORDERABLES Final Result [facility] [address] [place] [address] * (ABNORMAL) CBC W/O Differential (01/04/2025 7:49 PM EST) WBC Count 9.63 3.70 - 10.30 10*3/uL LAB HEMATOLOGY METHOD 01/04/2025 8:02 PM EST [facility] RBC Count 2.51(L) 4.60 - 6.10 10*6/uL LAB HEMATOLOGY METHOD 01/04/2025 8:02 PM EST [facility] HGB 7.6(L) 13.7 - 17.5 g/dL LAB HEMATOLOGY METHOD 01/04/2025 8:02 PM EST [facility] HCT 22.2(L) 40.0 - 51.0 % LAB HEMATOLOGY METHOD 01/04/2025 8:02 PM EST [facility] Platelet Count 52(L) 155 - 369 10*3/uL LAB HEMATOLOGY METHOD 01/04/2025 8:02 PM EST [facility] MCV 88 79 - 98 fL LAB HEMATOLOGY METHOD 01/04/2025 8:02 PM EST [facility] MCH 30.3 26.0 - 32.0 pg LAB HEMATOLOGY METHOD 01/04/2025 8:02 PM EST [facility] MCHC 34.2 30.7 - 35.5 g/dL LAB HEMATOLOGY METHOD 01/04/2025 8:02 PM EST [facility] RDW 20.0(H) 11.5 - 14.5 % LAB HEMATOLOGY METHOD 01/04/2025 8:02 PM EST [facility] MPV 9.7 8.8 - 12.5 fL LAB HEMATOLOGY METHOD 01/04/2025 8:02 PM EST [facility] nRBC 0.0 <=0.0 per 100 WBCs LAB HEMATOLOGY METHOD 01/04/2025 8:02 PM EST [facility] Blood Arterial blood specimen / Unknown Arterial Puncture / Unknown 01/04/2025 7:49 PM EST 01/04/2025 7:55 PM EST us Satnam Beckford MD LAB BLOOD ORDERABLES Final Result [facility] [address] [place] [address] * (ABNORMAL) Tacrolimus (01/04/2025 5:26 PM EST) Tacrolimus <2.0(L) 4.0 - 17.0 ng/mL 01/05/2025 7:52 AM EST [facility] Comment: Tacrolimus therapeutic range: Initial (<3 mo.) Maintenance Kidney 8-13 ng/mL 4-8 ng/mL Liver 8-13 ng/mL 4-8 ng/mL Heart 8-15 ng/mL 7-13 ng/mL Lung;Heart/Lung 8-17 ng/mL 8-13 ng/mL Blood Arterial blood specimen / Unknown Arterial Line / Unknown 01/04/2025 5:26 PM EST 01/04/2025 5:36 PM EST Narrative [facility] - 01/05/2025 7:52 AM EST Test performed by LC-MS/MS at the [facility]. This test was developed and its performance characteristics determined by [facility]. It has not been cleared or approved by the FDA. The laboratory is regulated under CLIA as qualified to perform high-complexity testing. This test is used for clinical purposes. Test performed by LC-MS/MS at the [facility]. This test was developed and its performance characteristics determined by [facility]. It has not been cleared or approved by the FDA. The laboratory is regulated under CLIA as qualified to perform high-complexity testing. This test is used for clinical purposes. Satnam Beckford MD LAB BLOOD ORDERABLES Final Result Performing Organization Address City/[facility]/ZIP Co de Phone Number [address] [address] * (ABNORMAL) POCT glucose meter (01/04/2025 5:24 PM EST) [facility] Signature POCT Glucose 128(H) 74 - 99 mg/dL 01/04/2025 5:26 PM EST [facility] Comment:Accuracy of [...] for testing. Comment 01/04/2025 5:26 PM EST [facility] 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 Machine Operator Helper ID Tila Vazquez 5:26 PM EST [facility] Device ID [id number] 01/04/2025 5:26 PM EST [facility] Specimen Type POC Capillary 01/04/2025 5:26 PM EST [facility] Blood Capillary blood specimen / Unknown 01/04/2025 5:24 PM EST 01/04/2025 5:26 PM EST Satnam Beckford MD LAB POINT OF CARE T EST DOCKED DEVICE UNSOLICITED RESULTS Final Result Performing Organization Address City/[facility]/ZIP Co de Phone Number [facility] [address] [place] [address] * (ABNORMAL) Comprehensive metabolic panel (01/04/2025 3:01 PM EST) Glucose, Plasma 126(H) 74 - 99 mg/dL 01/04/2025 3:38 PM [facility] BUN, Plasma 36(H) 7 - 21 mg/dL 01/04/2025 3:38 PM [facility] Creatinine, Plasma 1.73(H) 0.70 - 1.20 mg/dL 01/04/2025 3:38 PM [facility] BUN/Creatinine Ratio 21 01/04/2025 3:38 PM [facility] Sodium, Plasma 138 136 - 145 mmol/L 01/04/2025 3:38 PM [facility] Potassium, Plasma 4.6 3.6 - 4.9 mmol/L 01/04/2025 3:38 PM [facility] Chloride, Plasma 107 97 - 107 mmol/L 01/04/2025 3:38 PM [facility] CO2, Plasma 16(L) 22 - 29 mmol/L 01/04/2025 3:38 PM [facility] Anion Gap 15 6 - 16 mmol/L 01/04/2025 3:38 PM [facility] Total Calcium, Plasma 8.5(L) 8.9 - 10.2 mg/dL 01/04/2025 3:38 PM [facility] Total Protein 5.3(L) 6.3 - 7.9 g/dL 01/04/2025 3:38 PM [facility] Albumin, Plasma 3.3(L) 3.5 - 5.2 g/dL 01/04/2025 3:38 PM [facility] AST, Plasma 210(H) 10 - 50 U/L 01/04/2025 3:38 PM [facility] [facility] ALT, Plasma 178(H) 10 - 50 U/L 01/04/2025 3:38 PM [facility] Alkaline Phosphatase, Plasma 69 40 - 115 U/L 01/04/2025 3:38 PM [facility] Total Bilirubin, Plasma 5.4(H) 0.2 - 1.1 mg/dL 01/04/2025 3:38 PM [facility] eGFRcr 49.0 mL/min/1.7 3m*2 01/04/2025 3:38 PM EST [facility] Comment:Reported eGFRcr in m L/min/1.73m2 is based the CKD-EPI 2020 equation that does not use a race coefficient. Blood Venous blood specimen / Unknown Venipuncture / Unknown 01/04/2025 3:01 PM EST 01/04/2025 3:10 PM EST Satnam Beckford MD LAB BLOOD ORDERABLES Final Result [facility] [address] [place] [address] * Magnesium, Plasma (01/04/2025 3:01 PM EST) Magnesium, Plasma 2.4 1.9 - 2.4 mg/dL 01/04/2025 3:38 PM EST [facility] Blood Venous blood specimen / Unknown Venipuncture / Unknown 01/04/2025 3:01 PM EST 01/04/2025 3:10 PM EST Satnam Beckford MD LAB BLOOD ORDERABLES Final Result Performing Organization Address [facility] Co de Phone Number [facility] [address] [place] [address] * (ABNORMAL) Phosphorus, Plasma (01/04/2025 3:01 PM EST) Phosphorus, Plasma 6.4(H) 2.5 - 4.5 mg/dL 01/04/2025 3:38 PM EST [facility] Blood Venous blood specimen / Unknown Venipuncture / Unknown 01/04/2025 3:01 PM EST 01/04/2025 3:10 PM EST Satnam Beckford MD LAB BLOOD ORDERABLES Final Result Performing Organization Address City/[facility]/ZIP Co de Phone Number [facility] [address] [place] [address] * (ABNORMAL) Prothrombin Time/INR (01/04/2025 3:01 PM EST) Pathologist [facility] Prothrombin Time 20.2(H) 12.0 - 14.3 sec LAB COAGULATION METHOD 01/04/2025 3:38 PM EST [facility] INR 1.7(H) 0.9 - 1.1 LAB COAGULATION METHOD 01/04/2025 3:38 PM EST [facility] Blood Venous blood specimen / Unknown Venipuncture / Unknown 01/04/2025 3:01 PM EST 01/04/2025 3:10 PM EST [facility] - 01/04/2025 3:38 PM EST OPTIMAL INR RANGES FOR PATIENT ON ORAL ANTICOAGULANT THERAPY Prevention of venous thromboembolism INR 2.0 to 3.0 In patients with heart disease: Atrial fibrillation INR 2.0 to 3.0 Valvular heart disease INR 2.0 to 3.0 Tissue heart valves INR 2.0 to 3.0 Mechanical prosthetic valves INR 2.5 to 3.5 Prevention of recurrent ME INR 2.5 to 3.5 Satnam Beckford MD LAB BLOOD ORDERABLES Final Result [facility] [address] [place] [address] * (ABNORMAL) CBC W/O Differential (01/04/2025 3:01 PM EST) Pathologist [facility] WBC Count 10.03 3.70 - 10.30 10*3/uL LAB HEMATOLOGY METHOD 01/04/2025 3:17 PM EST [facility] RBC Count 2.74(L) 4.60 - 6.10 10*6/uL LAB HEMATOLOGY METHOD 01/04/2025 3:17 PM EST [facility] HGB 8.2(L) 13.7 - 17.5 g/dL LAB HEMATOLOGY METHOD 01/04/2025 3:17 PM EST [facility] HCT 23.9(L) 40.0 - 51.0 % LAB HEMATOLOGY METHOD 01/04/2025 3:17 PM EST [facility] Platelet Count 61(L) 155 - 369 10*3/uL LAB HEMATOLOGY METHOD 01/04/2025 3:17 PM EST [facility] MCV 87 79 - 98 fL LAB HEMATOLOGY METHOD 01/04/2025 3:17 PM EST [facility] MCH 29.9 26.0 - 32.0 pg LAB HEMATOLOGY METHOD 01/04/2025 3:17 PM EST [facility] MCHC 34.3 30.7 - 35.5 g/dL LAB HEMATOLOGY METHOD 01/04/2025 3:17 PM EST [facility] RDW 19.8(H) 11.5 - 14.5 % LAB HEMATOLOGY METHOD 01/04/2025 3:17 PM EST [facility] MPV 10.0 8.8 - 12.5 fL LAB HEMATOLOGY METHOD 01/04/2025 3:17 PM EST [facility] nRBC 0.0 <=0.0 per 100 WBCs LAB HEMATOLOGY METHOD 01/04/2025 3:17 PM EST [facility] Blood Venous blood specimen / Unknown Venipuncture / Unknown 01/04/2025 3:01 PM EST 01/04/2025 3:10 PM EST Satnam Beckford MD LAB BLOOD ORDERABLES Final Result [facility] [address] [place] [address] * Transfuse fresh frozen plasma (01/04/2025 2:20 PM EST) us Camilla Soto APRN, DNP BLOOD TRANSFUSION ORDERAB LES Final Result * Transfuse fresh frozen plasma: 1 Units (01/04/2025 2:20 PM EST) us Camilla Soto APRN, DNP BLOOD TRANSFUSION ORDERAB LES Final Result * Transfuse platelets (01/04/2025 12:11 PM EST) us Camlila Soto APRN, DNP BLOOD TRANSFUSION ORDERAB LES Final Result * Transfuse platelets: 1 Units (01/04/2025 12:11 PM EST) us Camilla Soto APRN, DNP BLOOD TRANSFUSION ORDERAB LES Final Result * (ABNORMAL) Hemoglobin and Hematocrit, Blood (01/04/2025 11:46 AM EST) HGB 8.5(L) 13.7 - 17.5 g/dL LAB HEMATOLOGY METHOD 01/04/2025 12:00 PM EST [facility] HCT 25.0(L) 40.0 - 51.0 % LAB HEMATOLOGY METHOD 01/04/2025 12:00 PM EST [facility] Blood Venous blood specimen / Unknown Venipuncture / Unknown 01/04/2025 11:46 AM EST 01/04/2025 11:52 AM EST Satnam Beckford MD LAB BLOOD ORDERABLES Final Result [facility] [address] [place] [address] * Transfuse RBC (01/04/2025 11:24 AM EST) Camilla Soto APRN, DNP BLOOD TRANSFUSION ORDERAB LES Final Result * Transfuse RBC: 1 Units (01/04/2025 11:24 AM EST) us Camilla Soto APRN, DNP BLOOD TRANSFUSION ORDERAB LES Final Result * (ABNORMAL) POCT glucose meter (01/04/2025 11:14 AM EST) POCT Glucose 118(H) 74 - 99 mg/dL 01/04/2025 11:16 AM EST [facility] Comment:Accuracy of a glucos e result [...] for testing. Comment 01/04/2025 11:16 AM EST [facility] 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 Machine Operator Helper ID Tila Vazquez 11:16 AM EST [facility] Device ID [id number] 01/04/2025 11:16 AM EST [facility] Specimen Type POC Capillary 01/04/2025 11:16 AM EST [facility] Blood Capillary blood specimen / Unknown 01/04/2025 11:14 AM EST 01/04/2025 11:16 AM EST Satnam Beckford MD LAB POINT OF CARE T EST DOCKED DEVICE UNSOLICITED RESULTS Final Result [facility] [address] [place] [address] * US Abdomen Focused Region Liver (01/04/2025 [...] COMMUNICATION: Per this written report. Drafted by eKenan Shipley MD on 01/04/2025 11:39 AM Final report signed by Keenan Shipley MD on 01/04/2025 11:42 AM Satnam Beckford MD [facility] US PROCEDURES Final Res ult * Prepare Leukocyte Reduced Platelets: 1 Units (01/04/2025 10:15 AM EST) Product Code [id number] BLOO D BANK Dispense Status Transfused BLOOD BANK Blood Expiration Date [id number] BLOOD BANK Unit Number [id number] CH B LOOD BANK Product Blood Type 0600 BLOOD BANK Blood Type A- BLOOD BANK Blood Venous blood specimen / Unknown Camilla Soto APRN, DNP BLOOD BANK PRODUCT ORDERA BLES Final Result [facility]LO[facility] BANK [address] [place] [address], * Transfuse RBC (01/04/2025 9:53 AM EST) Camilla Soto APRN, DNP BLOOD TRANSFUSION ORDERAB LES Final Result * Transfuse RBC: 1 Units (01/04/2025 9:53 AM EST) Camilla Soto APRN, DNP BLOOD TRANSFUSION ORDERAB LES Final Result * MD CRITICAL CARE, E/M 30-74 MINUTES (01/04/2025 9:16 [...] Plasma: 1 Units (01/04/2025 8:51 AM EST) [facility] Signature Product Code [id number] CH BLOO D BANK Dispense Status Transfused BLOOD BANK Blood Expiration Date [id number] BLOOD BANK Unit Number [id number] CH B LOOD BANK Product Blood Type 8400 BLOOD BANK Blood Type AB+ BLOOD BANK Blood Venous blood specimen / Unknown Camilla Soto APRN, DNP BLOOD BANK PRODUCT ORDERA BLES Final Result [facility]LO[facility] BANK [address] [place] [address], * (ABNORMAL) TEG Global Hemostasis with Lysis (01/04/2025 8:17 AM EST) R, Lysis 7.2 4.6 - 9.1 min 01/04/2025 9:39 AM EST [facility] MA, Rapid, Lysis <40.0(L) 52.0 - 70.0 mm 01/04/2025 9:39 AM EST [facility] MA, Fibrinogen, Lysis 8.7(L) 15.0 - 32.0 mm 01/04/2025 9:39 AM EST [facility] LY30 0.0 0.0 - 2.6 % 01/04/2025 9:39 AM EST [facility] Blood Arterial blood specimen / Unknown Arterial Line / Unknown 01/04/2025 8:17 AM EST 01/04/2025 8:29 AM EST us Rivka Gonzalez SENIOR DESIGNER LAB BLOOD ORDERABLES Fin al Result Performing Organization Address City/[facility] Co de Phone Number [facility] [address] [place] [address] * Prepare Leukocyte Reduced RBC: 1 Units (01/04/2025 8:04 AM EST) Product Code [id number] CH BLOO D BANK Dispense Status Transfused BLOOD BANK Blood Expiration Date [id number] BLOOD BANK Unit Number [id number] CH B LOOD BANK Product Blood Type 0600 BLOOD BANK Blood Type A- BLOOD BANK Crossmatch Compatible BLOOD BANK Other us Camilla Soto APRN, DNP BLOOD BANK PRODUCT ORDERA BLES Final Result Performing Organization Address City/[facility] Co de Phone Number BLOOD BANK [address] [place] [address], * Prepare Leukocyte Reduced RBC: 1 Units (01/04/2025 7:47 AM EST) Product Code [id number] CH BLOO D BANK Dispense Status Transfused BLOOD BANK Blood Expiration Date [id number] BLOOD BANK Unit Number [id number] CH B LOOD BANK Product Blood Type 0600 BLOOD BANK Blood Type A- BLOOD BANK Crossmatch Compatible BLOOD BANK Other Camilla Soto SENIOR DESIGNER, DNP BLOOD BANK PRODUCT ORDERA BLES Final Result Performing Organization Address City/[facility]/ZIP Co de Phone Number BLOOD BANK [address] * (ABNORMAL) Phosphorus, Plasma (01/04/2025 7:32 AM EST) Phosphorus, Plasma 6.3(H) 2.5 - 4.5 mg/dL 01/04/2025 8:10 AM EST [facility] Blood Venous blood specimen / Unknown Venipuncture / Unknown 01/04/2025 7:32 AM EST 01/04/2025 7:39 AM EST Satnam Beckford MD LAB BLOOD ORDERABLES Final Result Performing Organization Address City/[facility]/ZIP Co de Phone Number [facility] [address] [place] [address] * Magnesium, Plasma (01/04/2025 7:32 AM EST) Magnesium, Plasma 2.4 1.9 - 2.4 mg/dL 01/04/2025 8:10 AM EST [facility] Blood Venous blood specimen / Unknown Venipuncture / Unknown 01/04/2025 7:32 AM EST 01/04/2025 7:39 AM EST Satnam Beckford MD LAB BLOOD ORDERABLES Final Result Performing Organization Address City/[facility]/ZIP Co de Phone Number [facility] [address] [place] [address] * (ABNORMAL) Prothrombin Time/INR (01/04/2025 7:32 AM EST) Prothrombin Time 23.4(H) 12.0 - 14.3 sec LAB COAGULATION METHOD 01/04/2025 7:55 AM EST [facility] INR 2.0(H) 0.9 - 1.1 LAB COAGULATION METHOD 01/04/2025 7:55 AM EST [facility] Blood Venous blood specimen / Unknown Venipuncture / Unknown 01/04/2025 7:32 AM EST 01/04/2025 7:38 AM EST Narrative [facility] - 01/04/2025 7:55 AM EST OPTIMAL INR RANGES FOR PATIENT ON ORAL ANTICOAGULANT THERAPY Prevention of venous thromboembolism INR 2.0 to 3.0 In patients with heart disease: Atrial fibrillation INR 2.0 to 3.0 Valvular heart disease INR 2.0 to 3.0 Tissue heart valves INR 2.0 to 3.0 Mechanical prosthetic valves INR 2.5 to 3.5 Prevention of recurrent ME INR 2.5 to 3.5 Satnam Beckford MD LAB BLOOD ORDERABLES Final Result [facility] [address] [place] [address] * (ABNORMAL) Comprehensive metabolic panel (01/04/2025 7:32 AM EST) Glucose, Plasma 130(H) 74 - 99 mg/dL 01/04/2025 8:10 AM EST [facility] BUN, Plasma 29(H) 7 - 21 mg/dL 01/04/2025 8:10 AM EST [facility] Creatinine, Plasma 1.64(H) 0.70 - 1.20 mg/dL 01/04/2025 8:10 AM EST [facility] BUN/Creatinine Ratio 18 01/04/2025 8:10 AM EST [facility] Sodium, Plasma 140 136 - 145 mmol/L 01/04/2025 8:10 AM EST [facility] Potassium, Plasma 4.6 3.6 - 4.9 mmol/L 01/04/2025 8:10 AM EST [facility] Chloride, Plasma 110(H) 97 - 107 mmol/L 01/04/2025 8:10 AM EST [facility] CO2, Plasma 16(L) 22 - 29 mmol/L 01/04/2025 8:10 AM EST [facility] Anion Gap 14 6 - 16 mmol/L 01/04/2025 8:10 AM EST [facility] Total Calcium, Plasma 8.3(L) 8.9 - 10.2 mg/dL 01/04/2025 8:10 AM EST [facility] Total Protein 4.6(L) 6.3 - 7.9 g/dL 01/04/2025 8:10 AM EST [facility] Albumin, Plasma 3.0(L) 3.5 - 5.2 g/dL 01/04/2025 8:10 AM EST [facility] AST, Plasma 264(H) 10 - 50 U/L 01/04/2025 8:10 AM EST [facility] ALT, Plasma 177(H) 10 - 50 U/L 01/04/2025 8:10 AM EST [facility] Alkaline Phosphatase, Plasma 63 40 - 115 U/L 01/04/2025 8:10 AM EST [facility] Total Bilirubin, Plasma 4.9(H) 0.2 - 1.1 mg/dL 01/04/2025 8:10 AM EST [facility] eGFRcr 52.2 mL/min/1.7 3m*2 01/04/2025 8:10 AM EST [facility] Comment:Reported eGFRcr in m L/min/1.73m2 is based the CKD-EPI 2020 equation that does not use a race coefficient. Blood Venous blood specimen / Unknown Venipuncture / Unknown 01/04/2025 7:32 AM EST 01/04/2025 7:39 AM EST us Satnam Beckford MD LAB BLOOD ORDERABLES Final Result [facility] [address] [place] [address] * (ABNORMAL) CBC W/O Differential (01/04/2025 7:32 AM EST) WBC Count 8.55 3.70 - 10.30 10*3/uL LAB HEMATOLOGY METHOD 01/04/2025 7:49 AM EST [facility] RBC Count 2.26(L) 4.60 - 6.10 10*6/uL LAB HEMATOLOGY METHOD 01/04/2025 7:49 AM EST [facility] HGB 6.7(L) 13.7 - 17.5 g/dL LAB HEMATOLOGY METHOD 01/04/2025 7:49 AM EST [facility] HCT 20.3(L) 40.0 - 51.0 % LAB HEMATOLOGY METHOD 01/04/2025 7:49 AM EST [facility] Platelet Count 51(L) 155 - 369 10*3/uL LAB HEMATOLOGY METHOD 01/04/2025 7:49 AM EST [facility] MCV 90 79 - 98 fL LAB HEMATOLOGY METHOD 01/04/2025 7:49 AM EST [facility] MCH 29.6 26.0 - 32.0 pg LAB HEMATOLOGY METHOD 01/04/2025 7:49 AM EST [facility] MCHC 33.0 30.7 - 35.5 g/dL LAB HEMATOLOGY METHOD 01/04/2025 7:49 AM EST [facility] RDW 21.7(H) 11.5 - 14.5 % LAB HEMATOLOGY METHOD 01/04/2025 7:49 AM EST [facility] MPV 10.7 8.8 - 12.5 fL LAB HEMATOLOGY METHOD 01/04/2025 7:49 AM EST [facility] nRBC 0.0 <=0.0 per 100 WBCs LAB HEMATOLOGY METHOD 01/04/2025 7:49 AM EST [facility] Blood Venous blood specimen / Unknown Venipuncture / Unknown 01/04/2025 7:32 AM EST 01/04/2025 7:39 AM EST us Satnam Beckford MD LAB BLOOD ORDERABLES Final Result [facility] [address] [place] [address] * (ABNORMAL) Hemoglobin and hematocrit, blood (01/04/2025 6:00 AM EST) HGB 7.4(L) 13.7 - 17.5 g/dL LAB HEMATOLOGY METHOD 01/04/2025 6:15 AM EST [facility] HCT 22.3(L) 40.0 - 51.0 % LAB HEMATOLOGY METHOD 01/04/2025 6:15 AM EST [facility] Blood Venous blood specimen / Unknown Venipuncture / Unknown 01/04/2025 6:00 AM EST 01/04/2025 6:06 AM EST us Kathy Jiang SENIOR DESIGNER, DNP LAB BLOOD ORDERABLES Fi nal Result Performing Organization Address City/[facility]/ZIP Co de Phone Number [facility] [address] [place] [address] * (ABNORMAL) POCT glucose meter (01/04/2025 5:59 AM EST) POCT Glucose 129(H) 74 - 99 mg/dL 01/04/2025 6:01 AM EST [facility] Comment:Accuracy of a [...] for testing. Comment 01/04/2025 6:01 AM EST [facility] 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 Machine Operator Helper ID Eleazar Bradford 6:01 AM EST [facility] Device ID [id number] 01/04/2025 6:01 AM EST [facility] Specimen Type POC Arterial 01/04/2025 6:01 AM EST [facility] Blood Arterial blood specimen / Unknown 01/04/2025 5:59 AM EST 01/04/2025 6:01 AM EST us Satnam Beckford MD LAB POINT OF CARE T EST DOCKED DEVICE UNSOLICITED RESULTS Final Result [facility] [address] [place] [address] * XR Chest 1 View (01/04/2025 4:55 AM EST) Anatomical Region Laterality Modality Chest Digital Radiogra phy Impressions 01/04/2025 11:41 AM EST Mild interval advancement of the Livingston-Héctor catheter and removal of the nasogastric tube. [...] day prior FINDINGS: Interval advancement of the Livingston-Héctor catheter, the tip now projects over the [...] day prior FINDINGS: Interval advancement of the Livingston-Héctor catheter, the tip now projects overthe right pulmonary artery. Interval removal of the nasogastric tube. Therest of the visualized support hardware are unchanged. Thecardiomediastinal contours unchanged. No pneumothorax. Small left pleuraleffusion. Mild pulmonary vascular congestion. Persistent low lung volume.Similar bibasal lung opacities which may represent atelectasis and/orairspace disease. IMPRESSION: Mild interval advancement of the Livingston-Héctor catheter and removal of thenasogastric tube. Otherwise, no significant interval change. CRITICAL RESULT: No. COMMUNICATION: Per this written report. Drafted by Hermila Tapia MD on 01/04/2025 11:38 AM Final report signed by Hermila Tapia MD on 01/04/2025 11:41 AM Satnam Beckford MD IMG XR PROCEDURES Final Res ult * Transfuse RBC (01/04/2025 1:56 AM EST) Kathy Jiang SENIOR DESIGNER, DNP BLOOD TRANSFUSION ORDER GIANFRANCO Final Result * Transfuse RBC: 1 Units (01/04/2025 1:56 AM EST) Kathy Jiang APRN, DNP BLOOD TRANSFUSION ORDER GIANFRANCO Final Result * Prepare Leukocyte Reduced RBC: 1 Units (01/03/2025 11:49 PM EST) Pathologist [facility] Product Code [id number] CH BLOO D BANK Dispense Status Transfused BLOOD BANK Blood Expiration Date [id number] BLOOD BANK Unit Number [id number] CH B LOOD BANK Product Blood Type 0600 BLOOD BANK Blood Type A- CH BLOOD BANK Crossmatch Compatible BLOOD BANK Other Kathy Jiang APRN, DNP BLOOD BANK PRODUCT ORDE RABLES Final Result Performing Organization Address [facility] Co de Phone Number BLOOD BANK [address] [place] [address], * (ABNORMAL) POCT glucose meter (01/03/2025 11:34 PM EST) [facility] POCT Glucose 142(H) 74 - 99 mg/dL 01/03/2025 11:35 PM EST [facility] Comment:Accuracy of [...] for testing. Comment 01/03/2025 11:35 PM EST [facility] 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 Machine Operator Helper ID Eleazar Bradford 11:35 PM EST [facility] Device ID [id number] 01/03/2025 11:35 PM EST [facility] Specimen Type POC Arterial 01/03/2025 11:35 PM EST [facility] Blood Arterial blood specimen / Unknown 01/03/2025 11:34 PM EST 01/03/2025 11:35 PM EST Satnam Beckford MD LAB POINT OF CARE T EST DOCKED DEVICE UNSOLICITED RESULTS Final Result Performing Organization Address City/[facility] Co de Phone Number [facility] [address] [place] [address] * (ABNORMAL) Phosphorus, Plasma (01/03/2025 11:29 PM EST) Phosphorus, Plasma 5.6(H) 2.5 - 4.5 mg/dL 01/04/2025 12:10 AM EST [facility] Blood Venous blood specimen / Unknown Venipuncture / Unknown 01/03/2025 11:29 PM EST 01/03/2025 11:40 PM EST Satnam Beckford MD LAB BLOOD ORDERABLES Final Result [facility] [address] [place] [address] * (ABNORMAL) Magnesium, Plasma (01/03/2025 11:29 PM EST) Magnesium, Plasma 2.5(H) 1.9 - 2.4 mg/dL 01/04/2025 12:10 AM EST [facility] Blood Venous blood specimen / Unknown Venipuncture / Unknown 01/03/2025 11:29 PM EST 01/03/2025 11:40 PM EST Satnam Beckford MD LAB BLOOD ORDERABLES Final Result [facility] [address] [place] [address] * (ABNORMAL) Prothrombin Time/INR (01/03/2025 11:29 PM EST) Prothrombin Time 22.3(H) 12.0 - 14.3 sec LAB COAGULATION METHOD 01/04/2025 12:36 AM EST [facility] INR 1.9(H) 0.9 - 1.1 LAB COAGULATION METHOD 01/04/2025 12:36 AM EST [facility] Blood Venous blood specimen / Unknown Venipuncture / Unknown 01/03/2025 11:29 PM EST 01/03/2025 11:40 PM EST Narrative [facility] - 01/04/2025 12:36 AM EST OPTIMAL INR RANGES FOR PATIENT ON ORAL ANTICOAGULANT THERAPY Prevention of venous thromboembolism INR 2.0 to 3.0 In patients with heart disease: Atrial fibrillation INR 2.0 to 3.0 Valvular heart disease INR 2.0 to 3.0 Tissue heart valves INR 2.0 to 3.0 Mechanical prosthetic valves INR 2.5 to 3.5 Prevention of recurrent ME INR 2.5 to 3.5 Satnam Beckford MD LAB BLOOD ORDERABLES Final Result [facility] [address] [place] [address] * (ABNORMAL) Comprehensive metabolic panel (01/03/2025 11:29 PM EST) Glucose, Plasma 163(H) 74 - 99 mg/dL 01/04/2025 12:10 AM EST [facility] BUN, Plasma 24(H) 7 - 21 mg/dL 01/04/2025 12:10 AM EST [facility] Creatinine, Plasma 1.40(H) 0.70 - 1.20 mg/dL 01/04/2025 12:10 AM EST [facility] BUN/Creatinine Ratio 17 01/04/2025 12:10 AM EST [facility] Sodium, Plasma 141 136 - 145 mmol/L 01/04/2025 12:10 AM EST [facility] Potassium, Plasma 4.3 3.6 - 4.9 mmol/L 01/04/2025 12:10 AM EST [facility] Chloride, Plasma 112(H) 97 - 107 mmol/L 01/04/2025 12:10 AM EST [facility] CO2, Plasma 18(L) 22 - 29 mmol/L 01/04/2025 12:10 AM EST [facility] Anion Gap 11 6 - 16 mmol/L 01/04/2025 12:10 AM EST [facility] Total Calcium, Plasma 8.5(L) 8.9 - 10.2 mg/dL 01/04/2025 12:10 AM EST [facility] Total Protein 4.5(L) 6.3 - 7.9 g/dL 01/04/2025 12:10 AM EST [facility] Albumin, Plasma 2.8(L) 3.5 - 5.2 g/dL 01/04/2025 12:10 AM EST [facility] AST, Plasma 459(H) 10 - 50 U/L 01/04/2025 12:10 AM EST [facility] ALT, Plasma 223(H) 10 - 50 U/L 01/04/2025 12:10 AM EST [facility] Alkaline Phosphatase, Plasma 80 40 - 115 U/L 01/04/2025 12:10 AM EST [facility] Total Bilirubin, Plasma 7.5(H) 0.2 - 1.1 mg/dL 01/04/2025 12:10 AM EST [facility] eGFRcr 63.2 mL/min/1.7 3m*2 01/04/2025 12:10 AM EST [facility] Comment:Reported eGFRcr in m L/min/1.73m2 is based the CKD-EPI 2020 equation that does not use a race coefficient. Blood Venous blood specimen / Unknown Venipuncture / Unknown 01/03/2025 11:29 PM EST 01/03/2025 11:40 PM EST us Satnam Beckford MD LAB BLOOD ORDERABLES Final Result [facility] [address] [place] [address] * (ABNORMAL) CBC W/O Differential (01/03/2025 11:29 PM EST) WBC Count 8.83 3.70 - 10.30 10*3/uL LAB HEMATOLOGY METHOD 01/03/2025 11:47 PM EST [facility] RBC Count 2.59(L) 4.60 - 6.10 10*6/uL LAB HEMATOLOGY METHOD 01/03/2025 11:47 PM EST [facility] HGB 7.7(L) 13.7 - 17.5 g/dL LAB HEMATOLOGY METHOD 01/03/2025 11:47 PM EST [facility] HCT 23.3(L) 40.0 - 51.0 % LAB HEMATOLOGY METHOD 01/03/2025 11:47 PM EST [facility] Platelet Count 59(L) 155 - 369 10*3/uL LAB HEMATOLOGY METHOD 01/03/2025 11:47 PM EST [facility] MCV 90 79 - 98 fL LAB HEMATOLOGY METHOD 01/03/2025 11:47 PM EST [facility] MCH 29.7 26.0 - 32.0 pg LAB HEMATOLOGY METHOD 01/03/2025 11:47 PM EST [facility] MCHC 33.0 30.7 - 35.5 g/dL LAB HEMATOLOGY METHOD 01/03/2025 11:47 PM EST [facility] RDW 22.9(H) 11.5 - 14.5 % LAB HEMATOLOGY METHOD 01/03/2025 11:47 PM EST [facility] MPV 10.1 8.8 - 12.5 fL LAB HEMATOLOGY METHOD 01/03/2025 11:47 PM EST [facility] nRBC 0.0 <=0.0 per 100 WBCs LAB HEMATOLOGY METHOD 01/03/2025 11:47 PM EST [facility] Blood Venous blood specimen / Unknown Venipuncture / Unknown 01/03/2025 11:29 PM EST 01/03/2025 11:40 PM EST us Satnam Beckford MD LAB BLOOD ORDERABLES Final Result Performing Organization Address City/State/[facility] Co de Phone Number [facility] [address] [place] [address] * Transfuse fresh frozen plasma (01/03/2025 9:03 PM EST) Kathy Jiang APRN, DNP BLOOD TRANSFUSION ORDER GIANFRANCO Final Result * Transfuse fresh frozen plasma: 1 Units (01/03/2025 9:03 PM EST) us Kathy Jiang APRN, DNP BLOOD TRANSFUSION ORDER GIANFRANCO Final Result * Prepare Fresh Frozen Plasma: 1 Units (01/03/2025 7:57 PM EST) [facility] Signature Product Code [id number] CH BLOO D BANK Dispense Status Transfused BLOOD BANK Blood Expiration Date [id number] BLOOD BANK Unit Number [id number] CH B LOOD BANK Product Blood Type 6200 BLOOD BANK Blood Type A+ BLOOD BANK Blood Venous blood specimen / Unknown Kathy Jiang SENIOR DESIGNER, DNP BLOOD BANK PRODUCT ONEL BANDA Final Result Performing Organization Address City/[facility]/ZIP Co de Phone Number BLOOD BANK [address] * (ABNORMAL) Phosphorus, Plasma (01/03/2025 7:23 PM EST) Phosphorus, Plasma 5.0(H) 2.5 - 4.5 mg/dL 01/03/2025 8:01 PM EST [facility] Blood Venous blood specimen / Unknown Venipuncture / Unknown 01/03/2025 7:23 PM EST 01/03/2025 7:30 PM EST Satnam Beckford MD LAB BLOOD ORDERABLES Final Result Performing Organization Address City/[facility]/ZIP Co de Phone Number [facility] [address] [place] [address] * (ABNORMAL) Magnesium, Plasma (01/03/2025 7:23 PM EST) Magnesium, Plasma 1.8(L) 1.9 - 2.4 mg/dL 01/03/2025 8:01 PM EST [facility] Blood Venous blood specimen / Unknown Venipuncture / Unknown 01/03/2025 7:23 PM EST 01/03/2025 7:30 PM EST Satnam Beckford MD LAB BLOOD ORDERABLES Final Result [facility] [address] [place] [address] * (ABNORMAL) Prothrombin Time/INR (01/03/2025 7:23 PM EST) Prothrombin Time 22.9(H) 12.0 - 14.3 sec LAB COAGULATION METHOD 01/03/2025 7:46 PM EST [facility] INR 2.0(H) 0.9 - 1.1 LAB COAGULATION METHOD 01/03/2025 7:46 PM EST [facility] Blood Venous blood specimen / Unknown Venipuncture / Unknown 01/03/2025 7:23 PM EST 01/03/2025 7:30 PM EST Narrative [facility] - 01/03/2025 7:46 PM EST OPTIMAL INR RANGES FOR PATIENT ON ORAL ANTICOAGULANT THERAPY Prevention of venous thromboembolism INR 2.0 to 3.0 In patients with heart disease: Atrial fibrillation INR 2.0 to 3.0 Valvular heart disease INR 2.0 to 3.0 Tissue heart valves INR 2.0 to 3.0 Mechanical prosthetic valves INR 2.5 to 3.5 Prevention of recurrent ME INR 2.5 to 3.5 us Satnam Beckford MD LAB BLOOD ORDERABLES Final Result [facility] [address] [place] [address] * (ABNORMAL) Comprehensive metabolic panel (01/03/2025 7:23 PM EST) Glucose, Plasma 146(H) 74 - 99 mg/dL 01/03/2025 8:01 PM EST [facility] BUN, Plasma 21 7 - 21 mg/dL 01/03/2025 8:01 PM EST [facility] Creatinine, Plasma 1.25(H) 0.70 - 1.20 mg/dL 01/03/2025 8:01 PM EST [facility] BUN/Creatinine Ratio 17 01/03/2025 8:01 PM EST [facility] Sodium, Plasma 140 136 - 145 mmol/L 01/03/2025 8:01 PM EST [facility] Potassium, Plasma 4.5 3.6 - 4.9 mmol/L 01/03/2025 8:01 PM EST [facility] Chloride, Plasma 111(H) 97 - 107 mmol/L 01/03/2025 8:01 PM EST [facility] CO2, Plasma 19(L) 22 - 29 mmol/L 01/03/2025 8:01 PM EST [facility] Anion Gap 10 6 - 16 mmol/L 01/03/2025 8:01 PM EST [facility] Total Calcium, Plasma 8.8(L) 8.9 - 10.2 mg/dL 01/03/2025 8:01 PM EST [facility] Total Protein 4.5(L) 6.3 - 7.9 g/dL 01/03/2025 8:01 PM EST [facility] Albumin, Plasma 2.7(L) 3.5 - 5.2 g/dL 01/03/2025 8:01 PM EST [facility] AST, Plasma 612(H) 10 - 50 U/L 01/03/2025 8:01 PM EST [facility] ALT, Plasma 245(H) 10 - 50 U/L 01/03/2025 8:01 PM EST [facility] Alkaline Phosphatase, Plasma 84 40 - 115 U/L 01/03/2025 8:01 PM EST [facility] Total Bilirubin, Plasma 11.0(H) 0.2 - 1.1 mg/dL 01/03/2025 8:01 PM EST [facility] eGFRcr 72.4 mL/min/1.7 3m*2 01/03/2025 8:01 PM EST [facility] Comment:Reported eGFRcr in m L/min/1.73m2 is based the CKD-EPI 2020 equation that does not use a race coefficient. Blood Venous blood specimen / Unknown Venipuncture / Unknown 01/03/2025 7:23 PM EST 01/03/2025 7:30 PM EST us Satnam Beckford MD LAB BLOOD ORDERABLES Final Result [facility] [address] [place] [address] * (ABNORMAL) CBC W/O Differential (01/03/2025 7:23 PM EST) WBC Count 8.84 3.70 - 10.30 10*3/uL LAB HEMATOLOGY METHOD 01/03/2025 7:37 PM EST [facility] RBC Count 2.72(L) 4.60 - 6.10 10*6/uL LAB HEMATOLOGY METHOD 01/03/2025 7:37 PM EST [facility] HGB 8.2(L) 13.7 - 17.5 g/dL LAB HEMATOLOGY METHOD 01/03/2025 7:37 PM EST [facility] HCT 24.9(L) 40.0 - 51.0 % LAB HEMATOLOGY METHOD 01/03/2025 7:37 PM EST [facility] Platelet Count 57(L) 155 - 369 10*3/uL LAB HEMATOLOGY METHOD 01/03/2025 7:37 PM EST [facility] MCV 92 79 - 98 fL LAB HEMATOLOGY METHOD 01/03/2025 7:37 PM EST [facility] MCH 30.1 26.0 - 32.0 pg LAB HEMATOLOGY METHOD 01/03/2025 7:37 PM EST [facility] MCHC 32.9 30.7 - 35.5 g/dL LAB HEMATOLOGY METHOD 01/03/2025 7:37 PM EST [facility] RDW 23.0(H) 11.5 - 14.5 % LAB HEMATOLOGY METHOD 01/03/2025 7:37 PM EST [facility] MPV 10.2 8.8 - 12.5 fL LAB HEMATOLOGY METHOD 01/03/2025 7:37 PM EST [facility] nRBC 0.0 <=0.0 per 100 WBCs LAB HEMATOLOGY METHOD 01/03/2025 7:37 PM EST [facility] Blood Venous blood specimen / Unknown Venipuncture / Unknown 01/03/2025 7:23 PM EST 01/03/2025 7:30 PM EST us Satnam Beckford MD LAB BLOOD ORDERABLES Final Result [facility] [address] [place] [address] * (ABNORMAL) POCT glucose meter (01/03/2025 5:29 PM EST) POCT Glucose 139(H) 74 - 99 mg/dL 01/03/2025 5:31 PM EST [facility] Comment:Accuracy of a glucos e result [...] for testing. Comment 01/03/2025 5:31 PM EST [facility] 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 Machine Operator Helper ID Elyssa Augustin 01/03/2025 5:31 PM EST [facility] Device ID [id number] 01/03/2025 5:31 PM EST [facility] Specimen Type POC Arterial 01/03/2025 5:31 PM EST [facility] Blood Arterial blood specimen / Unknown 01/03/2025 5:29 PM EST 01/03/2025 5:31 PM EST Satnam Beckford MD LAB POINT OF CARE T EST DOCKED DEVICE UNSOLICITED RESULTS Final Result Performing Organization Address City/State/[facility] Co de Phone Number [facility]ALTH[facility] [address] [place] [address] * Transfuse fresh frozen plasma (01/03/2025 4:30 PM EST) Camilla Soto APRN, PATTI BLOOD TRANSFUSION ORDERAB LES Final Result * Transfuse fresh frozen plasma: 1 Units (01/03/2025 4:30 PM EST) us Camilla Soto APRN, PATTI BLOOD TRANSFUSION ORDERAB LES Final Result * (ABNORMAL) POCT glucose meter (01/03/2025 4:13 PM EST) [facility] POCT Glucose 141(H) 74 - 99 mg/dL [...] for testing. Comment 01/03/2025 4:15 PM EST [facility] 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 Machine Operator Helper ID Elyssa Augustin 01/03/2025 4:15 PM EST [facility] Device ID [id number] 01/03/2025 4:15 PM EST [facility] Specimen Type POC Arterial 01/03/2025 4:15 PM EST [facility] Blood Arterial blood specimen / Unknown 01/03/2025 4:13 PM EST 01/03/2025 4:15 PM EST Satnam Beckford MD LAB POINT OF CARE T EST DOCKED DEVICE UNSOLICITED RESULTS Final Result Performing Organization Address City/[facility] Co de Phone Number [facility] [address] [place] [address] * Tylor auris Surveillance by PCR (01/03/2025 4:09 PM EST) Tylor auris PCR Result Not Detected Not Detected 01/04/2025 11:52 AM EST [facility] Swab (Axilla and Groin) Non-blood Collection / Unknown 01/03/2025 4:09 PM EST 01/03/2025 4:28 PM EST Narrative [facility] - 01/04/2025 11:52 AM EST This PCR assay was developed and its performance characteristics determined by [facility] as appropriate for clinical purposes. This assay has not been cleared or approved by the FDA, but is performed in a CLIA regulated laboratory that is qualified to perform high-complexity testing. Satnam Beckford MD LAB MICROBIOLOGY - GENERAL ORDERABLES Final Result Performing Organization Address City/[facility] Co de Phone Number [facility] [address] [place] [address] * Multi Drug Resistance Test (01/03/2025 4:09 PM EST) Culture No growth at day 1 01/05/2025 5:36 AM EST [facility] Swab (Nares and Lauren Rectal) Non-blood Collection / Unknown 01/03/2025 4:09 PM EST 01/03/2025 4:28 PM EST Narrative [facility] - 01/05/2025 5:36 AM EST This test was developed and its performance characteristics determined by the [facility]. Although the media is FDA-approved, it is not FDA-approved for all specimen types submitted. The FDA has determined that such clearance or approval is not necessary. This test is used for surveillance purposes. It should not be regarded as investigational or for research. The [facility] is certified under the Clinical Laboratory Improvement Amendments of 1988 (CLIA-88) as qualified to perform high complexity clinical laboratory testing. us Satnam Beckford MD LAB MICROBIOLOGY - GENERAL ORDERABLES Final Result [facility] [address] [place] [address] * (ABNORMAL) Blood gas panel with oximetry, mixed venous (01/03/2025 3:47 PM EST) pH, Mixed Venous 7.31(L) 7.32 - 7.43 LAB HEMATOLOGY METHOD 01/03/2025 3:56 PM EST [facility] pCO2, Mixed Venous 42 40 - 55 mmHg LAB HEMATOLOGY METHOD 01/03/2025 3:56 PM EST [facility] pO2, Mixed Venous 53(H) 25 - 40 mmHg LAB HEMATOLOGY METHOD 01/03/2025 3:56 PM EST [facility] SO2, Measured, Mixed Venous 87(H) 65 - 80 % LAB HEMATOLOGY METHOD 01/03/2025 3:56 PM EST [facility] Bicarbonate, Calculated, Mixed Venous 21(L) 22 - 26 mmol/L LAB HEMATOLOGY METHOD 01/03/2025 3:56 PM EST [facility] Base Excess, Mixed Venous -5.1(L) -2.0 - 3.0 mmol/L LAB HEMATOLOGY METHOD 01/03/2025 3:56 PM EST [facility] Hematocrit, Whole Blood 26.4(L) 40.0 - 51.0 % LAB HEMATOLOGY METHOD 01/03/2025 3:56 PM EST [facility] Sodium, Whole Blood 140 136 - 145 mmol/L LAB HEMATOLOGY METHOD 01/03/2025 3:56 PM EST [facility] Potassium, Whole Blood 4.5 3.6 - 4.9 mmol/L LAB HEMATOLOGY METHOD 01/03/2025 3:56 PM EST [facility] Chloride, Whole Blood 115(H) 97 - 107 mmol/L LAB HEMATOLOGY METHOD 01/03/2025 3:56 PM EST [facility] Ionized Calcium, Whole Blood 5.2(H) 4.6 - 5.1 mg/dL LAB HEMATOLOGY METHOD 01/03/2025 3:56 PM EST [facility] Glucose, Whole Blood 145(H) 74 - 99 mg/dL LAB HEMATOLOGY METHOD 01/03/2025 3:56 PM EST [facility] Oxyhemoglobin, Mixed Venous, Whole Blood 82.3(H) 40.0 - 70.0 % LAB HEMATOLOGY METHOD 01/03/2025 3:56 PM EST [facility] Hemoglobin Reduced, Mixed Venous, Whole Blood 12.6 % LAB HEMATOLOGY METHOD 01/03/2025 3:56 PM EST [facility] Total Hemoglobin, Mixed Venous, Whole Blood 8.6(L) 13.7 - 17.5 g/dL LAB HEMATOLOGY METHOD 01/03/2025 3:56 PM EST [facility] Blood Mixed venous blood specimen / Unknown Venipuncture / Unknown 01/03/2025 3:47 PM EST 01/03/2025 3:54 PM EST us Satnam Beckford MD LAB BLOOD ORDERABLES Final Result Performing Organization Address City/State/[facility] Co de Phone Number [facility] [address] [place] [address] * XR Abdomen 1 View (Adult Inpatients [...] of the abdomen. COMPARISON: None. FINDINGS: Limited [id number]-[id number] abdominal radiograph for the purpose of locating tube position. The tip of the nasogastric tube is within the proximal stomach. Procedure Note Ernesto Rizo MD - 01/03/2025 CLINICAL INDICATION: Confirm proper placement of NG/OG tube TECHNIQUE: Supine radiograph of the abdomen. COMPARISON: None. FINDINGS: Limited [id number] abdominal radiograph for the purpose of locatingtube [...] tube tip overlies upper to midthoracic trachea. Livingston-Héctor catheter tip overlies main pulmonary artery. Right [...] Endotracheal tube tipoverlies upper to midthoracic trachea. Livingston-Héctor catheter tip overliesmain pulmonary artery. Right IJ [...] IMG XR PROCEDURES Final Res ult * MD CRITICAL CARE, E/M 30-74 MINUTES (01/03/2025 3:18 [...] Units (01/03/2025 3:02 PM EST) Product Code A1589N46 CH BLOO D BANK Dispense Status Transfused BLOOD BANK Blood Expiration Date [id number] BLOOD BANK Unit Number [id number] B LOOD BANK Product Blood Type 6200 BLOOD BANK Blood Type A+ BLOOD BANK Blood Venous blood specimen / Unknown Camilla Soto APRN, DNP BLOOD BANK PRODUCT ORDERA BLES Final Result BLOOD BANK [address] [place] [address], * (ABNORMAL) Blood gas, arterial (01/03/2025 2:56 PM EST) pH, Arterial 7.31(L) 7.35 - 7.45 LAB HEMATOLOGY METHOD 01/03/2025 3:02 PM [facility] pCO2, Arterial 41 32 - 45 mmHg LAB HEMATOLOGY METHOD 01/03/2025 3:02 PM [facility] pO2, Arterial 107 83 - 108 mmHg LAB HEMATOLOGY METHOD 01/03/2025 3:02 PM [facility] SO2, Measured, Arterial 99(H) 94 - 98 % LAB HEMATOLOGY METHOD 01/03/2025 3:02 PM [facility] Base Excess, Arterial -5.2(L) -2.0 - 3.0 mmol/L LAB HEMATOLOGY METHOD 01/03/2025 3:02 PM [facility] Bicarbonate, Calculated, Arterial 21(L) 22 - 26 mmol/L LAB HEMATOLOGY METHOD 01/03/2025 3:02 PM [facility] Hematocrit, Whole Blood 25.7(L) 40.0 - 51.0 % LAB HEMATOLOGY METHOD 01/03/2025 3:02 PM EST [facility] Sodium, Whole Blood 139 136 - 145 mmol/L LAB HEMATOLOGY METHOD 01/03/2025 3:02 PM [facility] Potassium, Whole Blood 4.6 3.6 - 4.9 mmol/L LAB HEMATOLOGY METHOD 01/03/2025 3:02 PM EST [facility] Chloride, Whole Blood 115(H) 97 - 107 mmol/L LAB HEMATOLOGY METHOD 01/03/2025 3:02 PM [facility] Glucose, Whole Blood 146(H) 74 - 99 mg/dL LAB HEMATOLOGY METHOD 01/03/2025 3:02 PM [facility] Ionized Calcium, Whole Blood 5.1 4.6 - 5.1 mg/dL LAB HEMATOLOGY METHOD 01/03/2025 3:02 PM [facility] Lactate, Arterial, Whole Blood 1.7(H) 0.5 - 1.6 mmol/L LAB HEMATOLOGY METHOD 01/03/2025 3:02 PM [facility] Blood Arterial blood specimen / Unknown Arterial Puncture / Unknown 01/03/2025 2:56 PM EST 01/03/2025 3:01 PM EST us Satnam N Beckford MD LAB BLOOD ORDERABLES Final Result [facility] [address] [place] [address] * Phosphorus, Plasma (01/03/2025 2:54 PM EST) Phosphorus, Plasma 4.4 2.5 - 4.5 mg/dL 01/03/2025 3:58 PM EST [facility] Blood Venous blood specimen / Unknown Venipuncture / Unknown 01/03/2025 2:54 PM EST 01/03/2025 3:01 PM EST Satnam Beckford MD LAB BLOOD ORDERABLES Final Result Performing Organization Address City/[facility]/ZIP Co de Phone Number [facility] [address] [place] [address] * (ABNORMAL) Magnesium, Plasma (01/03/2025 2:54 PM EST) Magnesium, Plasma 1.2(L) 1.9 - 2.4 mg/dL 01/03/2025 3:58 PM EST [facility] Blood Venous blood specimen / Unknown Venipuncture / Unknown 01/03/2025 2:54 PM EST 01/03/2025 3:01 PM EST Satnam Beckford MD LAB BLOOD ORDERABLES Final Result Performing Organization Address City/[facility]/ZIP Co de Phone Number [facility] [address] [place] [address] * (ABNORMAL) Comprehensive metabolic panel (01/03/2025 2:54 PM EST) Glucose, Plasma 146(H) 74 - 99 mg/dL 01/03/2025 3:58 PM EST [facility] BUN, Plasma 17 7 - 21 mg/dL 01/03/2025 3:58 PM EST [facility] Creatinine, Plasma 1.02 0.70 - 1.20 mg/dL 01/03/2025 3:58 PM EST [facility] BUN/Creatinine Ratio 17 01/03/2025 3:58 PM EST [facility] Sodium, Plasma 140 136 - 145 mmol/L 01/03/2025 3:58 PM EST [facility] Potassium, Plasma 4.9 3.6 - 4.9 mmol/L 01/03/2025 3:58 PM EST [facility] Chloride, Plasma 114(H) 97 - 107 mmol/L 01/03/2025 3:58 PM EST [facility] CO2, Plasma 19(L) 22 - 29 mmol/L 01/03/2025 3:58 PM EST [facility] Anion Gap 7 6 - 16 mmol/L 01/03/2025 3:58 PM EST [facility] Total Calcium, Plasma 8.5(L) 8.9 - 10.2 mg/dL 01/03/2025 3:58 PM EST [facility] Total Protein 3.7(L) 6.3 - 7.9 g/dL 01/03/2025 3:58 PM EST [facility] Albumin, Plasma 2.2(L) 3.5 - 5.2 g/dL 01/03/2025 3:58 PM [facility] AST, Plasma 699(H) 10 - 50 U/L 01/03/2025 3:58 PM EST [facility] ALT, Plasma 243(H) 10 - 50 U/L 01/03/2025 3:58 PM [facility] Alkaline Phosphatase, Plasma 86 40 - 115 U/L 01/03/2025 3:58 PM EST [facility] Total Bilirubin, Plasma 11.2(H) 0.2 - 1.1 mg/dL 01/03/2025 3:58 PM [facility] eGFRcr 92.4 mL/min/1.7 3m*2 01/03/2025 3:58 PM [facility] Comment:Reported eGFRcr in m L/min/1.73m2 is based the CKD-EPI 2020 equation that does not use a race coefficient. Blood Venous blood specimen / Unknown Venipuncture / Unknown 01/03/2025 2:54 PM EST 01/03/2025 3:01 PM EST us Satnam Beckford MD LAB BLOOD ORDERABLES Final Result [facility] [address] [place] [address] * (ABNORMAL) CBC and Differential (01/03/2025 2:54 PM EST) WBC Count 6.95 3.70 - 10.30 10*3/uL LAB HEMATOLOGY METHOD 01/03/2025 3:09 PM EST [facility] RBC Count 2.80(L) 4.60 - 6.10 10*6/uL LAB HEMATOLOGY METHOD 01/03/2025 3:09 PM EST [facility] HGB 8.3(L) 13.7 - 17.5 g/dL LAB HEMATOLOGY METHOD 01/03/2025 3:09 PM EST [facility] HCT 26.1(L) 40.0 - 51.0 % LAB HEMATOLOGY METHOD 01/03/2025 3:09 PM EST [facility] Platelet Count 61(L) 155 - 369 10*3/uL LAB HEMATOLOGY METHOD 01/03/2025 3:09 PM EST [facility] MCV 93 79 - 98 fL LAB HEMATOLOGY METHOD 01/03/2025 3:09 PM EST [facility] Comment:Results inconsistent with previous lab findings. MCH 29.6 26.0 - 32.0 pg LAB HEMATOLOGY METHOD 01/03/2025 3:09 PM EST [facility] MCHC 31.8 30.7 - 35.5 g/dL LAB HEMATOLOGY METHOD 01/03/2025 3:09 PM EST [facility] RDW 22.7(H) 11.5 - 14.5 % LAB HEMATOLOGY METHOD 01/03/2025 3:09 PM EST [facility] MPV 9.4 8.8 - 12.5 fL LAB HEMATOLOGY METHOD 01/03/2025 3:09 PM EST [facility] nRBC 0.0 <=0.0 per 100 WBCs LAB HEMATOLOGY METHOD 01/03/2025 3:09 PM EST [facility] Differential Type Automated LAB HEMATOLOGY METHOD 01/03/2025 3:09 PM EST [facility] Neutrophils % 86 % LAB HEMATOLOGY METHOD 01/03/2025 3:09 PM EST [facility] Lymphocytes % 5 % LAB HEMATOLOGY METHOD 01/03/2025 3:09 PM EST [facility] Monocytes % 9 % LAB HEMATOLOGY METHOD 01/03/2025 3:09 PM EST [facility] Eosinophils % 0 % LAB HEMATOLOGY METHOD 01/03/2025 3:09 PM EST [facility] Basophils % 0 % LAB HEMATOLOGY METHOD 01/03/2025 3:09 PM EST [facility] Immature Granulocytes % 0 % LAB HEMATOLOGY METHOD 01/03/2025 3:09 PM EST [facility] Neutrophils Absolute 5.97 1.60 - 6.10 10*3/uL LAB HEMATOLOGY METHOD 01/03/2025 3:09 PM EST [facility] Lymphocytes Absolute 0.31(L) 1.20 - 3.90 10*3/uL LAB HEMATOLOGY METHOD 01/03/2025 3:09 PM EST [facility] Monocytes Absolute 0.61 0.30 - 0.90 10*3/uL LAB HEMATOLOGY METHOD 01/03/2025 3:09 PM EST [facility] Eosinophils Absolute 0.03 0.00 - 0.50 10*3/uL LAB HEMATOLOGY METHOD 01/03/2025 3:09 PM EST [facility] Basophils Absolute 0.01 0.00 - 0.10 10*3/uL LAB HEMATOLOGY METHOD 01/03/2025 3:09 PM EST [facility] Immature Granulocytes Absolute 0.02 0.00 - 0.06 10*3/uL LAB HEMATOLOGY METHOD 01/03/2025 3:09 PM EST [facility] Blood Venous blood specimen / Unknown Venipuncture / Unknown 01/03/2025 2:54 PM EST 01/03/2025 3:01 PM EST Narrative [facility] - 01/03/2025 3:09 PM EST Therapeutic decision making should be based on absolute values, rather than percentages. us Satnam Beckford MD LAB BLOOD ORDERABLES Final Result [facility] [address] [place] [address] * (ABNORMAL) TEG Global Hemostasis with Lysis (01/03/2025 2:54 PM EST) R, Lysis 8.2 4.6 - 9.1 min 01/03/2025 4:03 PM EST [facility] MA, Rapid, Lysis 40.1(L) 52.0 - 70.0 mm 01/03/2025 4:03 PM EST [facility] MA, Fibrinogen, Lysis 8.8(L) 15.0 - 32.0 mm 01/03/2025 4:03 PM EST [facility] LY30 0.0 0.0 - 2.6 % 01/03/2025 4:03 PM EST [facility] Blood Venous blood specimen / Unknown Venipuncture / Unknown 01/03/2025 2:54 PM EST 01/03/2025 3:01 PM EST us Josafat Rivera MD LAB BLOOD ORDERABLES Final Res ult Performing Organization Address City/[facility]/ZIP Co de Phone Number [facility] [address] [place] [address] * (ABNORMAL) Fibrinogen (01/03/2025 2:54 PM EST) Fibrinogen, Quantitative (Clottable) 134(L) 208 - 459 mg/dL LAB COAGULATION METHOD 01/03/2025 3:52 PM EST [facility] Blood Venous blood specimen / Unknown Venipuncture / Unknown 01/03/2025 2:54 PM EST 01/03/2025 3:01 PM EST us Josafat Rivera MD LAB BLOOD ORDERABLES Final Res ult [facility] [address] [place] [address] * (ABNORMAL) APTT (01/03/2025 2:54 PM EST) aPTT 48(H) 25 - 35 sec LAB COAGULATION METHOD 01/03/2025 3:52 PM EST [facility] Blood Venous blood specimen / Unknown Venipuncture / Unknown 01/03/2025 2:54 PM EST 01/03/2025 3:01 PM EST us Josafat Rivera MD LAB BLOOD ORDERABLES Final Res t Performing Organization Address [facility]/ZIP Co de Phone Number [facility] [address] [place] [address] * (ABNORMAL) Protime-INR (01/03/2025 2:54 PM EST) Prothrombin Time 25.3(H) 12.0 - 14.3 sec LAB COAGULATION METHOD 01/03/2025 3:52 PM EST [facility] INR 2.3(H) 0.9 - 1.1 LAB COAGULATION METHOD 01/03/2025 3:52 PM EST [facility] Blood Venous blood specimen / Unknown Venipuncture / Unknown 01/03/2025 2:54 PM EST 01/03/2025 3:01 PM EST Narrative [facility] - 01/03/2025 3:52 PM EST OPTIMAL INR RANGES FOR PATIENT ON ORAL ANTICOAGULANT THERAPY Prevention of venous thromboembolism INR 2.0 to 3.0 In patients with heart disease: Atrial fibrillation INR 2.0 to 3.0 Valvular heart disease INR 2.0 to 3.0 Tissue heart valves INR 2.0 to 3.0 Mechanical prosthetic valves INR 2.5 to 3.5 Prevention of recurrent ME INR 2.5 to 3.5 us Josafat Rivera MD LAB BLOOD ORDERABLES Final [facility] Performing Organization Address [facility] Co de Phone Number [facility] [address] [place] [address] * (ABNORMAL) POCT arterial blood gas gem (01/03/2025 2:13 PM EST) pH, Arterial 7.34(L) 7.35 - 7.45 01/03/2025 2:14 PM EST [facility] pCO2, Arterial 35 32 - 45 mm Hg 01/03/2025 2:14 PM EST [facility] pO2, Arterial 159(H) 83 - 108 mm Hg 01/03/2025 2:14 PM EST [facility] SO2, Arterial 99(H) 94 - 98 % 01/03/2025 2:14 PM EST [facility] Base Excess, Arterial -6.3(L) -2 - 3 mmol/L 01/03/2025 2:14 PM EST [facility] HCO3, Arterial 18.9(L) 22 - 26 mmol/L 01/03/2025 2:14 PM EST [facility] Total Hemoglobin, Arterial, Whole Blood 8.1(L) 13.7 - 17.5 g/dL 01/03/2025 2:14 PM EST [facility] Hematocrit, Arterial 24.0(L) 40 - 51.0 % 01/03/2025 2:14 PM EST [facility] Sodium, Arterial 139 136 - 145 mmol/L 01/03/2025 2:14 PM EST [facility] Potassium, Arterial 4.8 3.6 - 4.9 mmol/L 01/03/2025 2:14 PM EST [facility] Chloride, Whole Blood 112(H) 97 - 107 mmol/L 01/03/2025 2:14 PM EST [facility] Glucose, Arterial 165(H) 74 - 99 mg/dL 01/03/2025 2:14 PM [facility] Ionized Calcium, Arterial 5.4(H) 4.6 - 5.1 mg/dL 01/03/2025 2:14 PM EST [facility] Lactate, Arterial 1.5 0.5 - 1.6 mmol/L 01/03/2025 2:14 PM EST [facility] Body Temperature 37.0 Celsius 01/03/2025 2:14 PM EST [facility] pH, Temp Corrected, Arterial 7.34(L) 7.35 - 7.45 01/03/2025 2:14 PM EST [facility] pCO2, Temp Corrected, Arterial 35 32 - 45 mm Hg 01/03/2025 2:14 PM EST [facility] pO2, Temp Corrected, Arterial 159(H) 83 - 108 mm Hg 01/03/2025 2:14 PM EST [facility] 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 Machine Operator Helper ID Ronnie Jackson 01/03/2025 2:14 PM EST [facility] Blood Whole blood specimen / Unknown 01/03/2025 2:13 PM EST 01/03/2025 2:14 PM EST us Satnam Beckford MD LAB POINT OF CARE T EST DOCKED DEVICE UNSOLICITED RESULTS Final Result [facility] [address] [place] [address] * (ABNORMAL) POCT arterial blood gas gem (01/03/2025 1:38 PM EST) pH, Arterial 7.34(L) 7.35 - 7.45 01/03/2025 1:40 PM EST [facility] pCO2, Arterial 36 32 - 45 mm Hg 01/03/2025 1:40 PM EST [facility] pO2, Arterial 157(H) 83 - 108 mm Hg 01/03/2025 1:40 PM EST [facility] SO2, Arterial 99(H) 94 - 98 % 01/03/2025 1:40 PM EST [facility] Base Excess, Arterial -5.8(L) -2 - 3 mmol/L 01/03/2025 1:40 PM [facility] HCO3, Arterial 19.4(L) 22 - 26 mmol/L 01/03/2025 1:40 PM EST [facility] Total Hemoglobin, Arterial, Whole Blood 8.5(L) 13.7 - 17.5 g/dL 01/03/2025 1:40 PM [facility] Hematocrit, Arterial 26.0(L) 40 - 51.0 % 01/03/2025 1:40 PM [facility] Sodium, Arterial 137 136 - 145 mmol/L 01/03/2025 1:40 PM [facility] Potassium, Arterial 5.1(H) 3.6 - 4.9 mmol/L 01/03/2025 1:40 PM [facility] Chloride, Whole Blood 112(H) 97 - 107 mmol/L 01/03/2025 1:40 PM [facility] Glucose, Arterial 143(H) 74 - 99 mg/dL 01/03/2025 1:40 PM [facility] Ionized Calcium, Arterial 5.4(H) 4.6 - 5.1 mg/dL 01/03/2025 1:40 PM [facility] Lactate, Arterial 1.6 0.5 - 1.6 mmol/L 01/03/2025 1:40 PM [facility] Body Temperature 37.0 Celsius 01/03/2025 1:40 PM [facility] pH, Temp Corrected, Arterial 7.34(L) 7.35 - 7.45 01/03/2025 1:40 PM EST [facility] pCO2, Temp Corrected, Arterial 36 32 - 45 mm Hg 01/03/2025 1:40 PM EST [facility] pO2, Temp Corrected, Arterial 157(H) 83 - 108 mm Hg 01/03/2025 1:40 PM EST [facility] 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 Machine Operator Helper ID Ronnie Jackson 01/03/2025 1:40 PM EST [facility] Blood Whole blood specimen / Unknown 01/03/2025 1:38 PM EST 01/03/2025 1:40 PM EST Satnam Beckford MD LAB POINT OF CARE T EST DOCKED DEVICE UNSOLICITED RESULTS Final Result Performing Organization Address City/State/[facility] Co de Phone Number [facility] [address] [place] [address] * Transfuse RBC (01/03/2025 12:59 PM EST) Josafat Rivera MD BLOOD TRANSFUSION ORDERABLES F inal Result * (ABNORMAL) POCT arterial blood gas gem (01/03/2025 12:54 PM EST) pH, Arterial 7.33(L) 7.35 - 7.45 01/03/2025 12:56 PM EST [facility] pCO2, Arterial 38 32 - 45 mm Hg 01/03/2025 12:56 PM EST [facility] pO2, Arterial 182(H) 83 - 108 mm Hg 01/03/2025 12:56 PM EST [facility] SO2, Arterial 99(H) 94 - 98 % 01/03/2025 12:56 PM EST [facility] Base Excess, Arterial -5.5(L) -2 - 3 mmol/L 01/03/2025 12:56 PM EST [facility] HCO3, Arterial 20.0(L) 22 - 26 mmol/L 01/03/2025 12:56 PM EST [facility] Total Hemoglobin, Arterial, Whole Blood 7.8(L) 13.7 - 17.5 g/dL 01/03/2025 12:56 PM EST [facility] Hematocrit, Arterial 23.0(L) 40 - 51.0 % 01/03/2025 12:56 PM EST [facility] Sodium, Arterial 138 136 - 145 mmol/L 01/03/2025 12:56 PM EST [facility] Potassium, Arterial 5.0(H) 3.6 - 4.9 mmol/L 01/03/2025 12:56 PM EST [facility] Chloride, Whole Blood 114(H) 97 - 107 mmol/L 01/03/2025 12:56 PM EST [facility] Glucose, Arterial 139(H) 74 - 99 mg/dL 01/03/2025 12:56 PM EST [facility] Ionized Calcium, Arterial 5.4(H) 4.6 - 5.1 mg/dL 01/03/2025 12:56 PM EST [facility] Lactate, Arterial 1.3 0.5 - 1.6 mmol/L 01/03/2025 12:56 PM EST [facility] Body Temperature 37.0 Celsius 01/03/2025 12:56 PM EST [facility] pH, Temp Corrected, Arterial 7.33(L) 7.35 - 7.45 01/03/2025 12:56 PM EST [facility] pCO2, Temp Corrected, Arterial 38 32 - 45 mm Hg 01/03/2025 12:56 PM EST [facility] pO2, Temp Corrected, Arterial 182(H) 83 - 108 mm Hg 01/03/2025 12:56 PM EST [facility] 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 Machine Operator Helper ID Ronnie Jackson 01/03/2025 12:56 PM EST [facility] Blood Whole blood specimen / Unknown 01/03/2025 12:54 PM EST 01/03/2025 12:56 PM EST Satnam Beckford MD LAB POINT OF CARE T EST DOCKED DEVICE UNSOLICITED RESULTS Final Result [facility] [address] [place] [phone] * Transfuse fresh frozen plasma (01/03/2025 12:25 PM EST) us Josafat Rivera MD BLOOD [...] BLOOD BANK TEST ORDERABLES F inal Result BLOOD BANK [address] * Prepare Leukocyte Reduced Platelets: 1 Units (01/03/2025 11:49 AM EST) Product Code I2336K62 CH BLOO D BANK Dispense Status Transfused BLOOD BANK Blood Expiration Date [id number] BLOOD BANK Unit Number [id number] CH B LOOD BANK Product Blood Type 6200 BLOOD BANK Blood Type A+ BLOOD BANK Blood Venous blood specimen / Unknown Josafat Rivera MD BLOOD BANK PRODUCT ORDERABLES Final Result BLO[facility] BANK [address] [place] [address], * (ABNORMAL) TEG Global Hemostasis with Lysis (01/03/2025 11:46 AM EST) R, Lysis 9.9(H) 4.6 - 9.1 min 01/03/2025 12:55 PM EST [facility] MA, Rapid, Lysis <40.0(L) 52.0 - 70.0 mm 01/03/2025 12:55 PM EST [facility] MA, Fibrinogen, Lysis 8.4(L) 15.0 - 32.0 mm 01/03/2025 12:55 PM EST [facility] LY30 0.0 0.0 - 2.6 % 01/03/2025 12:55 PM EST [facility] Blood Arterial blood specimen / Unknown 01/03/2025 11:46 AM EST 01/03/2025 11:52 AM EST Comment:Pre-op diagnosis: Decompensation of cirrhosis of liver (CMS/HCC) [K72.90, K74.60] Josafat Rivera MD LAB BLOOD ORDERABLES Final Res ult Performing Organization Address [facility] Co de Phone Number [facility] [address] [place] [address] * (ABNORMAL) APTT (01/03/2025 11:46 AM EST) aPTT 59(H) 25 - 35 sec LAB COAGULATION METHOD 01/03/2025 12:20 PM EST [facility] Blood Arterial blood specimen / Unknown 01/03/2025 11:46 AM EST 01/03/2025 11:51 AM EST Comment:Pre-op diagnosis: Decompensation of cirrhosis of liver (CMS/HCC) [K72.90, K74.60] Josafat Rivera MD LAB BLOOD ORDERABLES Final Res ult Performing Organization Address City/[facility]/ZIP Co de Phone Number [facility] [address] [place] [address] * (ABNORMAL) Prothrombin Time/INR (01/03/2025 11:46 AM EST) Prothrombin Time 25.6(H) 12.0 - 14.3 sec LAB COAGULATION METHOD 01/03/2025 12:20 PM EST [facility] INR 2.3(H) 0.9 - 1.1 LAB COAGULATION METHOD 01/03/2025 12:20 PM EST [facility] Blood Arterial blood specimen / Unknown 01/03/2025 11:46 AM EST 01/03/2025 11:51 AM EST Comment:Pre-op diagnosis: Decompensation of cirrhosis of liver (CMS/HCC) [K72.90, K74.60] Narrative [facility] - 01/03/2025 12:20 PM EST OPTIMAL INR RANGES FOR PATIENT ON ORAL ANTICOAGULANT THERAPY Prevention of venous thromboembolism INR 2.0 to 3.0 In patients with heart disease: Atrial fibrillation INR 2.0 to 3.0 Valvular heart disease INR 2.0 to 3.0 Tissue heart valves INR 2.0 to 3.0 Mechanical prosthetic valves INR 2.5 to 3.5 Prevention of recurrent ME INR 2.5 to 3.5 Josafat Rivera MD LAB BLOOD ORDERABLES Final Res ult Performing Organization Address City/[facility]/ZIP Co de Phone Number [address] [address] * (ABNORMAL) Fibrinogen, Quantitative (Clottable) (01/03/2025 11:46 AM EST) Fibrinogen, Quantitative (Clottable) 136(L) 208 - 459 mg/dL LAB COAGULATION METHOD 01/03/2025 12:20 PM EST [facility] Blood Arterial blood specimen / Unknown 01/03/2025 11:46 AM EST 01/03/2025 11:51 AM EST Comment:Pre-op diagnosis: Decompensation of cirrhosis of liver (CMS/HCC) [K72.90, K74.60] Josafat Rivera MD LAB BLOOD ORDERABLES Final Res ult [facility] [address] [place] [id number] * (ABNORMAL) Platelet Count, Blood (01/03/2025 11:46 AM EST) Pathologist [facility] Platelet Count 52(L) 155 - 369 10*3/uL LAB HEMATOLOGY METHOD 01/03/2025 11:59 AM EST [facility] Blood Arterial blood specimen / Unknown 01/03/2025 11:46 AM EST 01/03/2025 11:51 AM EST Comment:Pre-op diagnosis: Decompensation of cirrhosis of liver (CMS/HCC) [K72.90, K74.60] us Josafat Rivera MD LAB BLOOD ORDERABLES Final Res ult [facility] [address] [place] [address] * (ABNORMAL) POCT arterial blood gas gem (01/03/2025 11:42 AM EST) Pathologist [facility] pH, Arterial 7.28(L) 7.35 - 7.45 01/03/2025 11:43 AM EST [facility] pCO2, Arterial 43 32 - 45 mm Hg 01/03/2025 11:43 AM EST [facility] pO2, Arterial 207(H) 83 - 108 mm Hg 01/03/2025 11:43 AM EST [facility] SO2, Arterial 99(H) 94 - 98 % 01/03/2025 11:43 AM EST [facility] Base Excess, Arterial -6.2(L) -2 - 3 mmol/L 01/03/2025 11:43 AM EST [facility] HCO3, Arterial 20.2(L) 22 - 26 mmol/L 01/03/2025 11:43 AM EST [facility] Total Hemoglobin, Arterial, Whole Blood 8.5(L) 13.7 - 17.5 g/dL 01/03/2025 11:43 AM EST [facility] Hematocrit, Arterial 26.0(L) 40 - 51.0 % 01/03/2025 11:43 AM EST [facility] Sodium, Arterial 139 136 - 145 mmol/L 01/03/2025 11:43 AM EST [facility] Potassium, Arterial 4.7 3.6 - 4.9 mmol/L 01/03/2025 11:43 AM EST [facility] Chloride, Whole Blood 109(H) 97 - 107 mmol/L 01/03/2025 11:43 AM EST [facility] Glucose, Arterial 166(H) 74 - 99 mg/dL 01/03/2025 11:43 AM EST [facility] Ionized Calcium, Arterial 5.7(H) 4.6 - 5.1 mg/dL 01/03/2025 11:43 AM EST [facility] Lactate, Arterial 1.7(H) 0.5 - 1.6 mmol/L 01/03/2025 11:43 AM EST [facility] Body Temperature 37.0 Celsius 01/03/2025 11:43 AM EST [facility] pH, Temp Corrected, Arterial 7.28(L) 7.35 - 7.45 01/03/2025 11:43 AM EST [facility] pCO2, Temp Corrected, Arterial 43 32 - 45 mm Hg 01/03/2025 11:43 AM EST [facility] pO2, Temp Corrected, Arterial 207(H) 83 - 108 mm Hg 01/03/2025 11:43 AM EST [facility] 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 Machine Operator 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 ID Ronnie Jackson 01/03/2025 11:43 AM EST [facility] Blood Whole blood specimen / Unknown 01/03/2025 11:42 AM EST 01/03/2025 11:43 AM EST Satnam Beckford MD LAB POINT OF CARE T EST DOCKED DEVICE UNSOLICITED RESULTS Final Result Performing Organization Address City/State/[facility] de Phone Number [facility] [address] [place] [address] * Transfuse RBC (01/03/2025 11:30 AM EST) Josafat Rivera MD BLOOD TRANSFUSION ORDERABLES F inal Result * Transfuse fresh frozen plasma (01/03/2025 11:28 AM EST) Josafat Rivera MD BLOOD TRANSFUSION ORDERABLES F inal Result * (ABNORMAL) POCT arterial blood gas gem (01/03/2025 11:11 AM EST) [facility] Signature pH, Arterial 7.28(L) 7.35 - 7.45 01/03/2025 11:12 AM [facility] pCO2, Arterial 40 32 - 45 mm Hg 01/03/2025 11:12 AM [facility] pO2, Arterial 292(H) 83 - 108 mm Hg 01/03/2025 11:12 AM [facility] SO2, Arterial 100(H) 94 - 98 % 01/03/2025 11:12 AM [facility] Base Excess, Arterial -7.4(L) -2 - 3 mmol/L 01/03/2025 11:12 AM [facility] HCO3, Arterial 18.8(L) 22 - 26 mmol/L 01/03/2025 11:12 AM [facility] Total Hemoglobin, Arterial, Whole Blood 8.0(L) 13.7 - 17.5 g/dL 01/03/2025 11:12 AM [facility] Hematocrit, Arterial 24.0(L) 40 - 51.0 % 01/03/2025 11:12 AM [facility] Sodium, Arterial 138 136 - 145 mmol/L 01/03/2025 11:12 AM [facility] Potassium, Arterial 4.3 3.6 - 4.9 mmol/L 01/03/2025 11:12 AM [facility] Chloride, Whole Blood 110(H) 97 - 107 mmol/L 01/03/2025 11:12 AM [facility] Glucose, Arterial 213(H) 74 - 99 mg/dL 01/03/2025 11:12 AM [facility] Ionized Calcium, Arterial 5.4(H) 4.6 - 5.1 mg/dL 01/03/2025 11:12 AM [facility] Lactate, Arterial 1.8(H) 0.5 - 1.6 mmol/L 01/03/2025 11:12 AM [facility] Body Temperature 37.0 Celsius 01/03/2025 11:12 AM [facility] pH, Temp Corrected, Arterial 7.28(L) 7.35 - 7.45 01/03/2025 11:12 AM [facility] pCO2, Temp Corrected, Arterial 40 32 - 45 mm Hg 01/03/2025 11:12 AM [facility] pO2, Temp Corrected, Arterial 292(H) 83 - 108 mm Hg 01/03/2025 11:12 AM EST [facility] 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 Machine Operator Helper ID Ronnie Jackson 01/03/2025 11:12 AM EST [facility] Blood Whole blood specimen / Unknown 01/03/2025 11:11 AM EST 01/03/2025 11:12 AM EST Satnam Beckford MD LAB POINT OF CARE T EST DOCKED DEVICE UNSOLICITED RESULTS Final Result Performing Organization Address City/State/[facility] Co de Phone Number [facility] [address] [place] [address] * Transfuse RBC (01/03/2025 11:00 AM EST) us Josafat Rivera MD BLOOD TRANSFUSION ORDERABLES F inal Result * (ABNORMAL) POCT arterial blood gas gem (01/03/2025 10:58 AM EST) pH, Arterial 7.36 7.35 - 7.45 01/03/2025 10:59 AM EST [facility] pCO2, Arterial 34 32 - 45 mm Hg 01/03/2025 10:59 AM EST [facility] pO2, Arterial 330(H) 83 - 108 mm Hg 01/03/2025 10:59 AM EST [facility] SO2, Arterial 100(H) 94 - 98 % 01/03/2025 10:59 AM EST [facility] Base Excess, Arterial -5.7(L) -2 - 3 mmol/L 01/03/2025 10:59 AM EST [facility] HCO3, Arterial 19.2(L) 22 - 26 mmol/L 01/03/2025 10:59 AM EST [facility] Total Hemoglobin, Arterial, Whole Blood 8.0(L) 13.7 - 17.5 g/dL 01/03/2025 10:59 AM EST [facility] Hematocrit, Arterial 24.0(L) 40 - 51.0 % 01/03/2025 10:59 AM EST [facility] Sodium, Arterial 138 136 - 145 mmol/L 01/03/2025 10:59 AM EST [facility] Potassium, Arterial 4.5 3.6 - 4.9 mmol/L 01/03/2025 10:59 AM EST [facility] Chloride, Whole Blood 111(H) 97 - 107 mmol/L 01/03/2025 10:59 AM EST [facility] Glucose, Arterial 111(H) 74 - 99 mg/dL 01/03/2025 10:59 AM EST [facility] Ionized Calcium, Arterial 5.3(H) 4.6 - 5.1 mg/dL 01/03/2025 10:59 AM EST [facility] Lactate, Arterial 1.3 0.5 - 1.6 mmol/L 01/03/2025 10:59 AM EST [facility] Body Temperature 37.0 Celsius 01/03/2025 10:59 AM EST [facility] pH, Temp Corrected, Arterial 7.36 7.35 - 7.45 01/03/2025 10:59 AM EST [facility] pCO2, Temp Corrected, Arterial 34 32 - 45 mm Hg 01/03/2025 10:59 AM EST [facility] pO2, Temp Corrected, Arterial 330(H) 83 - 108 mm Hg 01/03/2025 10:59 AM EST [facility] 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 Machine Operator Helper ID Ronnie Jackson 01/03/2025 10:59 AM EST [facility] Blood Whole blood specimen / Unknown 01/03/2025 10:58 AM EST 01/03/2025 10:59 AM EST Satnam Beckford MD LAB POINT OF CARE T EST DOCKED DEVICE UNSOLICITED RESULTS Final Result Performing Organization Address City/State/[facility] Co de Phone Number [facility] [address] [place] [phone] * (ABNORMAL) TEG Global Hemostasis with Lysis (01/03/2025 10:26 AM EST) R, Lysis 5.1 4.6 - 9.1 min 01/03/2025 11:30 AM EST [facility] MA, Rapid, Lysis <40.0(L) 52.0 - 70.0 mm 01/03/2025 11:30 AM EST [facility] MA, Fibrinogen, Lysis 9.4(L) 15.0 - 32.0 mm 01/03/2025 11:30 AM EST [facility] LY30 0.1 0.0 - 2.6 % 01/03/2025 11:30 AM EST [facility] Blood Arterial blood specimen / Unknown 01/03/2025 10:26 AM EST 01/03/2025 10:35 AM EST Comment:Pre-op diagnosis: Decompensation of cirrhosis of liver (CMS/HCC) [K72.90, K74.60] us Josafat Rivera MD LAB BLOOD ORDERABLES Final Res ult Performing Organization Address [facility]/ZIP Co de Phone Number [facility] [address] [place] [address] * (ABNORMAL) APTT (01/03/2025 10:26 AM EST) aPTT 46(H) 25 - 35 sec LAB COAGULATION METHOD 01/03/2025 11:06 AM EST [facility] Blood Arterial blood specimen / Unknown 01/03/2025 10:26 AM EST 01/03/2025 10:33 AM EST Comment:Pre-op diagnosis: Decompensation of cirrhosis of liver (CMS/HCC) [K72.90, K74.60] us Josafat Rivera MD LAB BLOOD ORDERABLES Final Res ult Performing Organization Address [facility] Co de Phone Number [facility] [address] [place] [address] * (ABNORMAL) Prothrombin Time/INR (01/03/2025 10:26 AM EST) Prothrombin Time 23.6(H) 12.0 - 14.3 sec LAB COAGULATION METHOD 01/03/2025 11:06 AM EST [facility] INR 2.1(H) 0.9 - 1.1 LAB COAGULATION METHOD 01/03/2025 11:06 AM EST [facility] Blood Arterial blood specimen / Unknown 01/03/2025 10:26 AM EST 01/03/2025 10:33 AM EST Comment:Pre-op diagnosis: Decompensation of cirrhosis of liver (CMS/HCC) [K72.90, K74.60] Narrative [facility] - 01/03/2025 11:06 AM EST OPTIMAL INR RANGES FOR PATIENT ON ORAL ANTICOAGULANT THERAPY Prevention of venous thromboembolism INR 2.0 to 3.0 In patients with heart disease: Atrial fibrillation INR 2.0 to 3.0 Valvular heart disease INR 2.0 to 3.0 Tissue heart valves INR 2.0 to 3.0 Mechanical prosthetic valves INR 2.5 to 3.5 Prevention of recurrent ME INR 2.5 to 3.5 us Josafat Rivera MD LAB BLOOD ORDERABLES Final Res ult Performing Organization Address [facility] de Phone Number [facility] [address] [place] [address] * (ABNORMAL) Fibrinogen, Quantitative (Clottable) (01/03/2025 10:26 AM EST) Fibrinogen, Quantitative (Clottable) 147(L) 208 - 459 mg/dL LAB COAGULATION METHOD 01/03/2025 11:06 AM EST [facility] Blood Arterial blood specimen / Unknown 01/03/2025 10:26 AM EST 01/03/2025 10:33 AM EST Comment:Pre-op diagnosis: Decompensation of cirrhosis of liver (CMS/HCC) [K72.90, K74.60] us Josafat Rivera MD LAB BLOOD ORDERABLES Final Res ult Performing Organization Address [facility] [place] [address] * (ABNORMAL) Platelet Count, Blood (01/03/2025 10:26 AM EST) Platelet Count 57(L) 155 - 369 10*3/uL LAB HEMATOLOGY METHOD 01/03/2025 10:40 AM EST [facility] Blood Arterial blood specimen / Unknown 01/03/2025 10:26 AM EST 01/03/2025 10:33 AM EST Comment:Pre-op diagnosis: Decompensation of cirrhosis of liver (CMS/HCC) [K72.90, K74.60] us Josafat Rivera MD LAB BLOOD ORDERABLES Final Res ult Performing Organization Address [facility]/ZIP Co de Phone Number [facility] [address] [place] [address] * Surgical Pathology Exam (01/03/2025 10:22 AM EST) Case Report Surgical Pathology Case: [id number] Authorizing Provider: Josafat Rivera MD Collected: 01/03/2025 1022 Ordering Location: [facility] Received: 01/05/2025 6656 Pathologist: Ashley De MD Specimen: Liver, crow liver 01/07/2025 10:53 AM EST [facility] Final Diagnosis LIVER AND GALLBLADDER, TANGIRNAQ, TRANSPLANTATION: - CIRRHOSIS (HISTORY OF ALCOHOLIC CIRRHOSIS) (SEE COMMENT). - NO PATHOLOGIC ABNORMALITIES, GALLBLADDER. 01/07/2025 10:53 AM EST [facility] at 1053 EST Comment Sections show extensive [...] dysplasia or malignancy. 01/07/2025 10:53 AM EST [facility] Clinical Information Decompensation of cirrhosis of liver (CMS/HCC) [K72.90, K74.60] 01/07/2025 10:53 AM EST [facility] Gross Description A. TANGIRNAQ LIVER The specimen is received fresh and [...] cm. No masses or polyps are identified. Door Captain sections are submitted as follows: A1: Vascular margins A2: Segment two A3: Segment three A4: Seven six A5: Segment eight A6: Gallbladder Cold Time: 0 CRISTAL Olsen (ASCP) 01/07/2025 10:53 AM EST [facility] Note: A resident was involved in the service. I attest I examined the relevant preparations for the specimens and confirmed the diagnosis or interpretation. 01/07/2025 10:53 AM EST [facility] Tissue Liver structure / Unknown 01/03/2025 10:22 AM EST 01/05/2025 7:55 AM EST Comment:Pre-op diagnosis: Decompensation of cirrhosis of liver (CMS/HCC) [K72.90, K74.60] Josafat Rivera MD LAB PATHOLOGY ORDERABLES Final Result [facility] [address] [place] [address] * Transfuse fresh frozen plasma (01/03/2025 10:21 AM EST) us Josafat Rivera MD BLOOD TRANSFUSION ORDERABLES F inal Result * Transfuse RBC (01/03/2025 10:18 AM EST) us Josafat Rivera MD BLOOD TRANSFUSION ORDERABLES F inal Result * (ABNORMAL) POCT arterial blood gas gem (01/03/2025 10:15 AM EST) pH, Arterial 7.33(L) 7.35 - 7.45 01/03/2025 10:17 AM EST [facility] pCO2, Arterial 37 32 - 45 mm Hg 01/03/2025 10:17 AM EST [facility] pO2, Arterial 204(H) 83 - 108 mm Hg 01/03/2025 10:17 AM EST [facility] SO2, Arterial 99(H) 94 - 98 % 01/03/2025 10:17 AM EST [facility] Base Excess, Arterial -5.9(L) -2 - 3 mmol/L 01/03/2025 10:17 AM EST [facility] HCO3, Arterial 19.5(L) 22 - 26 mmol/L 01/03/2025 10:17 AM EST [facility] Total Hemoglobin, Arterial, Whole Blood 7.5(L) 13.7 - 17.5 g/dL 01/03/2025 10:17 AM EST [facility] Hematocrit, Arterial 23.0(L) 40 - 51.0 % 01/03/2025 10:17 AM EST [facility] Sodium, Arterial 138 136 - 145 mmol/L 01/03/2025 10:17 AM [facility] Potassium, Arterial 4.3 3.6 - 4.9 mmol/L 01/03/2025 10:17 AM [facility] Glucose, Arterial 129(H) 74 - 99 mg/dL 01/03/2025 10:17 AM [facility] Ionized Calcium, Arterial 3.9(L) 4.6 - 5.1 mg/dL 01/03/2025 10:17 AM [facility] Lactate, Arterial 1.7(H) 0.5 - 1.6 mmol/L 01/03/2025 10:17 AM EST [facility] Body Temperature 37.0 Celsius 01/03/2025 10:17 AM [facility] pH, Temp Corrected, Arterial 7.33(L) 7.35 - 7.45 01/03/2025 10:17 AM [facility] pCO2, Temp Corrected, Arterial 37 32 - 45 mm Hg 01/03/2025 10:17 AM EST [facility] pO2, Temp Corrected, Arterial 204(H) 83 - 108 mm Hg 01/03/2025 10:17 AM EST [facility] 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 Operator Helper ID Ronnie Jackson 01/03/2025 10:17 AM [facility] Blood Whole blood specimen / Unknown 01/03/2025 10:15 AM EST 01/03/2025 10:17 AM EST us Satnam Beckford MD LAB POINT OF CARE T EST DOCKED DEVICE UNSOLICITED RESULTS Final Result Performing Organization Address City/State/[facility] Co de Phone Number [facility] [address] [place], [place] [id number] * Prepare Fresh Frozen Plasma: 6 Units (01/03/2025 10:09 AM EST) Product Code H0407D50 BLOO D BANK Dispense Status Returned BLOOD BANK Blood Expiration Date BLOOD BANK Unit Number [id number] CH B LOOD BANK Product Blood Type 8400 BLOOD BANK Blood Type AB+ CH BLOOD BANK Product Code [id number] BLOO D BANK Dispense Status Transfused BLOOD BANK Blood Expiration Date BLOOD BANK Unit Number [id number] CH B LOOD BANK Product Blood Type 8400 BLOOD BANK Blood Type AB+ CH BLOOD BANK Product Code [id number] BLOO D BANK Dispense Status Returned BLOOD BANK Blood Expiration Date BLOOD BANK Unit Number [id number] CH B LOOD BANK Product Blood Type 6200 BLOOD BANK Blood Type A+ CH BLOOD BANK Product Code [id number] BLOO D BANK Dispense Status Transfused BLOOD BANK Blood Expiration Date BLOOD BANK Unit Number [id number] CH B LOOD BANK Product Blood Type 8400 BLOOD BANK Blood Type AB+ CH BLOOD BANK Product Code [id number] BLOO D BANK Dispense Status Returned BLOOD BANK Blood Expiration Date BLOOD BANK Unit Number [id number] CH B LOOD BANK Product Blood Type 6200 BLOOD BANK Blood Type A+ CH BLOOD BANK Product Code [id number] BLOO D BANK Dispense Status Returned BLOOD BANK Blood Expiration Date BLOOD BANK Unit Number [id number] CH B LOOD BANK Product Blood Type 2800 BLOOD BANK Blood Type AB- CH BLOOD BANK Blood Venous blood specimen / Unknown Josafat Rivera MD BLOOD BANK PRODUCT ORDERABLES Edited Result - Final BLOOD BANK [address] [place] [address], * Transfuse fresh frozen plasma (01/03/2025 10:00 AM EST) Josafat E Nicole MD BLOOD TRANSFUSION ORDERABLES F inal Result * Transfuse RBC (01/03/2025 9:58 AM EST) Result Carly Rivera MD BLOOD TRANSFUSION ORDERABLES F inal Result * Transfuse fresh frozen plasma (01/03/2025 9:49 AM EST) Result Carly Rivera MD BLOOD TRANSFUSION ORDERABLES F inal Result * Transfuse RBC (01/03/2025 9:47 AM EST) Result Carly Rivera MD BLOOD TRANSFUSION ORDERABLES F inal Result * (ABNORMAL) POCT arterial blood gas gem (01/03/2025 9:36 AM EST) pH, Arterial 7.34(L) 7.35 - 7.45 01/03/2025 9:37 AM EST [facility] pCO2, Arterial 38 32 - 45 mm Hg 01/03/2025 9:37 AM [facility] pO2, Arterial 182(H) 83 - 108 mm Hg 01/03/2025 9:37 AM [facility] SO2, Arterial 100(H) 94 - 98 % 01/03/2025 9:37 AM [facility] Base Excess, Arterial -4.8(L) -2 - 3 mmol/L 01/03/2025 9:37 AM [facility] HCO3, Arterial 20.5(L) 22 - 26 mmol/L 01/03/2025 9:37 AM EST [facility] Total Hemoglobin, Arterial, Whole Blood 8.2(L) 13.7 - 17.5 g/dL 01/03/2025 9:37 AM EST [facility] Hematocrit, Arterial 25.0(L) 40 - 51.0 % 01/03/2025 9:37 AM [facility] Sodium, Arterial 138 136 - 145 mmol/L 01/03/2025 9:37 AM EST [facility] Potassium, Arterial 4.1 3.6 - 4.9 mmol/L 01/03/2025 9:37 AM [facility] Chloride, Whole Blood 109(H) 97 - 107 mmol/L 01/03/2025 9:37 AM [facility] Glucose, Arterial 107(H) 74 - 99 mg/dL 01/03/2025 9:37 AM EST [facility] Ionized Calcium, Arterial 4.6 4.6 - 5.1 mg/dL 01/03/2025 9:37 AM EST [facility] Lactate, Arterial 1.2 0.5 - 1.6 mmol/L 01/03/2025 9:37 AM EST [facility] Body Temperature 37.0 Celsius 01/03/2025 9:37 AM EST [facility] pH, Temp Corrected, Arterial 7.34(L) 7.35 - 7.45 01/03/2025 9:37 AM EST [facility] pCO2, Temp Corrected, Arterial 38 32 - 45 mm Hg 01/03/2025 9:37 AM EST [facility] pO2, Temp Corrected, Arterial 182(H) 83 - 108 mm Hg 01/03/2025 9:37 AM EST [facility] 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 Machine Operator Helper ID Ronnie Jackson 01/03/2025 9:37 AM EST [facility] Blood Whole blood specimen / Unknown 01/03/2025 9:36 AM EST 01/03/2025 9:37 AM EST Satnam Beckford MD LAB POINT OF CARE T EST DOCKED DEVICE UNSOLICITED RESULTS Final Result Performing Organization Address City/State/[facility] Co de Phone Number [facility] [address] [place] [address] * (ABNORMAL) POCT arterial blood gas gem (01/03/2025 9:03 AM EST) pH, Arterial 7.33(L) 7.35 - 7.45 01/03/2025 9:05 AM EST [facility] pCO2, Arterial 39 32 - 45 mm Hg 01/03/2025 9:05 AM EST [facility] pO2, Arterial 180(H) 83 - 108 mm Hg 01/03/2025 9:05 AM EST [facility] SO2, Arterial 99(H) 94 - 98 % 01/03/2025 9:05 AM EST [facility] Base Excess, Arterial -4.9(L) -2 - 3 mmol/L 01/03/2025 9:05 AM EST [facility] HCO3, Arterial 20.6(L) 22 - 26 mmol/L 01/03/2025 9:05 AM EST [facility] Total Hemoglobin, Arterial, Whole Blood 8.2(L) 13.7 - 17.5 g/dL 01/03/2025 9:05 AM [facility] Hematocrit, Arterial 25.0(L) 40 - 51.0 % 01/03/2025 9:05 AM [facility] Sodium, Arterial 138 136 - 145 mmol/L 01/03/2025 9:05 AM [facility] Potassium, Arterial 4.1 3.6 - 4.9 mmol/L 01/03/2025 9:05 AM [facility] Chloride, Whole Blood 108(H) 97 - 107 mmol/L 01/03/2025 9:05 AM [facility] Glucose, Arterial 109(H) 74 - 99 mg/dL 01/03/2025 9:05 AM [facility] Ionized Calcium, Arterial 4.7 4.6 - 5.1 mg/dL 01/03/2025 9:05 AM [facility] Lactate, Arterial 1.1 0.5 - 1.6 mmol/L 01/03/2025 9:05 AM [facility] Body Temperature 37.0 Celsius 01/03/2025 9:05 AM [facility] pH, Temp Corrected, Arterial 7.33(L) 7.35 - 7.45 01/03/2025 9:05 AM [facility] pCO2, Temp Corrected, Arterial 39 32 - 45 mm Hg 01/03/2025 9:05 AM [facility] pO2, Temp Corrected, Arterial 180(H) 83 - 108 mm Hg 01/03/2025 9:05 AM [facility] 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 Machine Operator Helper ID Ronnie Jackson 01/03/2025 9:05 AM [facility] Blood Whole blood specimen / Unknown 01/03/2025 9:03 AM EST 01/03/2025 9:05 AM EST Satnam Beckford MD LAB POINT OF CARE T EST DOCKED DEVICE UNSOLICITED RESULTS Final Result Performing Organization Address City/State/[facility] de Phone Number [facility] [address] [place] [id number] * Transfuse RBC (01/03/2025 8:39 AM EST) Josafat Rivera MD BLOOD TRANSFUSION ORDERABLES F inal Result * Transfuse fresh frozen plasma (01/03/2025 8:39 AM EST) Josafat Rivera MD BLOOD TRANSFUSION ORDERABLES F inal Result * (ABNORMAL) POCT arterial blood gas gem (01/03/2025 8:37 AM EST) pH, Arterial 7.35 7.35 - 7.45 01/03/2025 8:38 AM [facility] pCO2, Arterial 38 32 - 45 mm Hg 01/03/2025 8:38 AM [facility] pO2, Arterial 81(L) 83 - 108 mm Hg 01/03/2025 8:38 AM [facility] SO2, Arterial 97 94 - 98 % 01/03/2025 8:38 AM [facility] Base Excess, Arterial -4.2(L) -2 - 3 mmol/L 01/03/2025 8:38 AM [facility] HCO3, Arterial 21.0(L) 22 - 26 mmol/L 01/03/2025 8:38 AM [facility] Total Hemoglobin, Arterial, Whole Blood 7.5(L) 13.7 - 17.5 g/dL 01/03/2025 8:38 AM [facility] Hematocrit, Arterial 23.0(L) 40 - 51.0 % 01/03/2025 8:38 AM [facility] Sodium, Arterial 138 136 - 145 mmol/L 01/03/2025 8:38 AM [facility] Potassium, Arterial 3.9 3.6 - 4.9 mmol/L 01/03/2025 8:38 AM [facility] Chloride, Whole Blood 109(H) 97 - 107 mmol/L 01/03/2025 8:38 AM [facility] Glucose, Arterial 98 74 - 99 mg/dL 01/03/2025 8:38 AM [facility] Ionized Calcium, Arterial 4.2(L) 4.6 - 5.1 mg/dL 01/03/2025 8:38 AM [facility] Lactate, Arterial 0.9 0.5 - 1.6 mmol/L 01/03/2025 8:38 AM [facility] Body Temperature 37.0 Celsius 01/03/2025 8:38 AM EST [facility] pH, Temp Corrected, Arterial 7.35 7.35 - 7.45 01/03/2025 8:38 AM EST [facility] pCO2, Temp Corrected, Arterial 38 32 - 45 mm Hg 01/03/2025 8:38 AM EST [facility] pO2, Temp Corrected, Arterial 81(L) 83 - 108 mm Hg 01/03/2025 8:38 AM EST [facility] 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 Machine Operator Helper ID Ronnie Jackson 01/03/2025 8:38 AM EST [facility] Blood Whole blood specimen / Unknown 01/03/2025 8:37 AM EST 01/03/2025 8:38 AM EST Satnam Beckford MD LAB POINT OF CARE T EST DOCKED DEVICE UNSOLICITED RESULTS Final Result Performing Organization Address City/State/[facility] de Phone Number [facility] [address] [place] [address] * Transfuse RBC (01/03/2025 8:07 AM EST) Josafat Rivera MD BLOOD TRANSFUSION ORDERABLES F inal Result * Transfuse fresh frozen plasma (01/03/2025 8:04 AM EST) Josafat Rivera MD BLOOD TRANSFUSION ORDERABLES F inal Result * Transfuse fresh frozen plasma (01/03/2025 8:04 AM EST) Josafat Rivera MD BLOOD TRANSFUSION ORDERABLES F inal Result * (ABNORMAL) QSTAT (01/03/2025 8:01 AM EST) [facility] Clot Time 182(H) 121 - 175 Seconds 01/03/2025 8:42 AM EST [facility] Clot Stability To Lysis 98 92 - 100 % 01/03/2025 8:42 AM EST [facility] Comment:The Clot Stability t o [...] - 35.4 hectoPascals 01/03/2025 8:42 AM EST [facility] Platelet Contribution to Clot Stiffness 8.0(L) 12.8 - 32.3 hectoPascals 01/03/2025 8:42 AM EST [facility] Fribrinogen Contribution to Clot Stiffness 1.1 0.9 - 4.2 hectoPascals 01/03/2025 8:42 AM EST [facility] 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 Machine Operator Helper ID [id number] 01/03/2025 8:42 AM EST [facility] Device ID [id number] 01/03/2025 8:42 AM EST [facility] Blood Venous blood specimen / Unknown 01/03/2025 8:01 AM EST 01/03/2025 8:42 AM EST Narrative [facility] - 01/03/2025 8:42 AM EST ProfileName= Satnam Beckford MD LAB POINT OF CARE T EST DOCKED DEVICE UNSOLICITED RESULTS Final Result Performing Organization Address City/State/[facility] Co de Phone Number [facility] [address] [place] [address] * (ABNORMAL) POCT arterial blood gas gem (01/03/2025 7:59 AM EST) pH, Arterial 7.33(L) 7.35 - 7.45 01/03/2025 8:01 AM EST [facility] pCO2, Arterial 43 32 - 45 mm Hg 01/03/2025 8:01 AM EST [facility] pO2, Arterial 95 83 - 108 mm Hg 01/03/2025 8:01 AM EST [facility] SO2, Arterial 98 94 - 98 % 01/03/2025 8:01 AM EST [facility] Base Excess, Arterial -3.0(L) -2 - 3 mmol/L 01/03/2025 8:01 AM EST [facility] HCO3, Arterial 22.7 22 - 26 mmol/L 01/03/2025 8:01 AM EST [facility] Total Hemoglobin, Arterial, Whole Blood 7.8(L) 13.7 - 17.5 g/dL 01/03/2025 8:01 AM [facility] Hematocrit, Arterial 23.0(L) 40 - 51.0 % 01/03/2025 8:01 AM [facility] Sodium, Arterial 138 136 - 145 mmol/L 01/03/2025 8:01 AM [facility] Potassium, Arterial 3.8 3.6 - 4.9 mmol/L 01/03/2025 8:01 AM [facility] Chloride, Whole Blood 108(H) 97 - 107 mmol/L 01/03/2025 8:01 AM [facility] Glucose, Arterial 110(H) 74 - 99 mg/dL 01/03/2025 8:01 AM [facility] Ionized Calcium, Arterial 4.8 4.6 - 5.1 mg/dL 01/03/2025 8:01 AM [facility] Lactate, Arterial 0.8 0.5 - 1.6 mmol/L 01/03/2025 8:01 AM [facility] Body Temperature 37.0 Celsius 01/03/2025 8:01 AM [facility] pH, Temp Corrected, Arterial 7.33(L) 7.35 - 7.45 01/03/2025 8:01 AM [facility] pCO2, Temp Corrected, Arterial 43 32 - 45 mm Hg 01/03/2025 8:01 AM [facility] pO2, Temp Corrected, Arterial 95 83 - 108 mm Hg 01/03/2025 8:01 AM [facility] 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 Machine Operator Helper Josafat Adkins 01/03/2025 8:01 AM [facility] Blood Whole blood specimen / Unknown 01/03/2025 7:59 AM EST 01/03/2025 8:01 AM EST us Satnam Beckford MD LAB POINT OF CARE T EST DOCKED DEVICE UNSOLICITED RESULTS Final Result [facility] [address] [place] [address] * (ABNORMAL) TEG Global Hemostasis with Lysis (01/03/2025 7:53 AM EST) R, Lysis 8.2 4.6 - 9.1 min 01/03/2025 9:02 AM [facility] MA, Rapid, Lysis 42.7(L) 52.0 - 70.0 mm 01/03/2025 9:02 AM EST [facility] MA, Fibrinogen, Lysis 12.0(L) 15.0 - 32.0 mm 01/03/2025 9:02 AM EST [facility] LY30 0.4 0.0 - 2.6 % 01/03/2025 9:02 AM EST [facility] Blood Arterial blood specimen / Unknown 01/03/2025 7:53 AM EST 01/03/2025 8:05 AM EST Comment:Pre-op diagnosis: Decompensation of cirrhosis of liver (CMS/HCC) [K72.90, K74.60] Josafat Rivera MD LAB BLOOD ORDERABLES Final Res ult Performing Organization Address City/[facility] Co de Phone Number [facility] [address] [place] [address] * (ABNORMAL) APTT (01/03/2025 7:53 AM EST) aPTT 62(H) 25 - 35 sec LAB COAGULATION METHOD 01/03/2025 8:37 AM EST [facility] Blood Arterial blood specimen / Unknown 01/03/2025 7:53 AM EST 01/03/2025 8:03 AM EST Comment:Pre-op diagnosis: Decompensation of cirrhosis of liver (CMS/HCC) [K72.90, K74.60] Josafat Rivera MD LAB BLOOD ORDERABLES Final Res ult [facility] [address] [place] [address] * (ABNORMAL) Prothrombin Time/INR (01/03/2025 7:53 AM EST) Prothrombin Time 29.3(H) 12.0 - 14.3 sec LAB COAGULATION METHOD 01/03/2025 8:37 AM EST [facility] INR 2.8(H) 0.9 - 1.1 LAB COAGULATION METHOD 01/03/2025 8:37 AM EST [facility] Blood Arterial blood specimen / Unknown 01/03/2025 7:53 AM EST 01/03/2025 8:03 AM EST Comment:Pre-op diagnosis: Decompensation of cirrhosis of liver (CMS/HCC) [K72.90, K74.60] Narrative [facility] - 01/03/2025 8:37 AM EST OPTIMAL INR RANGES FOR PATIENT ON ORAL ANTICOAGULANT THERAPY Prevention of venous thromboembolism INR 2.0 to 3.0 In patients with heart disease: Atrial fibrillation INR 2.0 to 3.0 Valvular heart disease INR 2.0 to 3.0 Tissue heart valves INR 2.0 to 3.0 Mechanical prosthetic valves INR 2.5 to 3.5 Prevention of recurrent ME INR 2.5 to 3.5 Josafat Rivera MD LAB BLOOD ORDERABLES Final Res ult Performing Organization Address City/[facility]/ZIP Co de Phone Number [facility] [address] [place] [address] * (ABNORMAL) Fibrinogen, Quantitative (Clottable) (01/03/2025 7:53 AM EST) Fibrinogen, Quantitative (Clottable) 148(L) 208 - 459 mg/dL LAB COAGULATION METHOD 01/03/2025 8:37 AM EST [facility] Blood Arterial blood specimen / Unknown 01/03/2025 7:53 AM EST 01/03/2025 8:03 AM EST Comment:Pre-op diagnosis: Decompensation of cirrhosis of liver (CMS/HCC) [K72.90, K74.60] Josafat Rivera MD LAB BLOOD ORDERABLES Final Res ult [facility] [address] [place] [address] * (ABNORMAL) CBC W/O Differential (01/03/2025 7:53 AM EST) WBC Count 3.60(L) 3.70 - 10.30 10*3/uL LAB HEMATOLOGY METHOD 01/03/2025 8:20 AM EST [facility] RBC Count 2.45(L) 4.60 - 6.10 10*6/uL LAB HEMATOLOGY METHOD 01/03/2025 8:20 AM EST [facility] HGB 7.8(L) 13.7 - 17.5 g/dL LAB HEMATOLOGY METHOD 01/03/2025 8:20 AM EST [facility] HCT 25.7(L) 40.0 - 51.0 % LAB HEMATOLOGY METHOD 01/03/2025 8:20 AM EST [facility] Platelet Count 69(L) 155 - 369 10*3/uL LAB HEMATOLOGY METHOD 01/03/2025 8:20 AM EST [facility] MCV 105(H) 79 - 98 fL LAB HEMATOLOGY METHOD 01/03/2025 8:20 AM EST [facility] MCH 31.8 26.0 - 32.0 pg LAB HEMATOLOGY METHOD 01/03/2025 8:20 AM EST [facility] MCHC 30.4(L) 30.7 - 35.5 g/dL LAB HEMATOLOGY METHOD 01/03/2025 8:20 AM EST [facility] RDW 20.3(H) 11.5 - 14.5 % LAB HEMATOLOGY METHOD 01/03/2025 8:20 AM EST [facility] MPV 10.3 8.8 - 12.5 fL LAB HEMATOLOGY METHOD 01/03/2025 8:20 AM EST [facility] nRBC 0.0 <=0.0 per 100 WBCs LAB HEMATOLOGY METHOD 01/03/2025 8:20 AM EST [facility] Blood Arterial blood specimen / Unknown 01/03/2025 7:53 AM EST 01/03/2025 8:03 AM EST Comment:Pre-op diagnosis: Decompensation of cirrhosis of liver (CMS/HCC) [K72.90, K74.60] us Josafat Rivera MD LAB BLOOD ORDERABLES Final Res ult [facility] [address] [place] [address] * (ABNORMAL) Comprehensive Metabolic Panel, Plasma (01/03/2025 7:53 AM EST) Glucose, Plasma 111(H) 74 - 99 mg/dL 01/03/2025 8:41 AM [facility] BUN, Plasma 14 7 - 21 mg/dL 01/03/2025 8:41 AM [facility] Creatinine, Plasma 0.73 0.70 - 1.20 mg/dL 01/03/2025 8:41 AM [facility] BUN/Creatinine Ratio 19 01/03/2025 8:41 AM [facility] Sodium, Plasma 137 136 - 145 mmol/L 01/03/2025 8:41 AM [facility] Potassium, Plasma 3.8 3.6 - 4.9 mmol/L 01/03/2025 8:41 AM [facility] Chloride, Plasma 109(H) 97 - 107 mmol/L 01/03/2025 8:41 AM [facility] CO2, Plasma 21(L) 22 - 29 mmol/L 01/03/2025 8:41 AM [facility] Anion Gap 7 6 - 16 mmol/L 01/03/2025 8:41 AM [facility] Total Calcium, Plasma 7.6(L) 8.9 - 10.2 mg/dL 01/03/2025 8:41 AM [facility] Total Protein 5.0(L) 6.3 - 7.9 g/dL 01/03/2025 8:41 AM [facility] Albumin, Plasma 2.5(L) 3.5 - 5.2 g/dL 01/03/2025 8:41 AM [facility] AST, Plasma 50 10 - 50 U/L 01/03/2025 8:41 AM [facility] ALT, Plasma 26 10 - 50 U/L 01/03/2025 8:41 AM [facility] Alkaline Phosphatase, Plasma 93 40 - 115 U/L 01/03/2025 8:41 AM [facility] Total Bilirubin, Plasma 11.7(H) 0.2 - 1.1 mg/dL 01/03/2025 8:41 AM [facility] eGFRcr 114.3 mL/min/1.7 3m*2 01/03/2025 8:41 AM [facility] Comment:Reported eGFRcr in m L/min/1.73m2 is based the CKD-EPI 2020 equation that does not use a race coefficient. Blood Arterial blood specimen / Unknown 01/03/2025 7:53 AM EST 01/03/2025 8:02 AM EST Comment:Pre-op diagnosis: Decompensation of cirrhosis of liver (CMS/HCC) [K72.90, K74.60] us Josafat Rivera MD LAB BLOOD ORDERABLES Final Res ult [facility] [address] [place] [address] * Prepare Fresh Frozen Plasma: 5 Units (01/03/2025 6:43 AM EST) Product Code [id number] CH BLOO D BANK Dispense Status Transfused CH BLOOD BANK Blood Expiration Date BLOOD BANK Unit Number [id number] CH B LOOD BANK Product Blood Type 6200 BLOOD BANK Blood Type A+ CH BLOOD BANK Product Code [id number] BLOO D BANK Dispense Status Transfused CH BLOOD BANK Blood Expiration Date BLOOD BANK Unit Number [id number] CH B LOOD BANK Product Blood Type 6200 BLOOD BANK Blood Type A+ CH BLOOD BANK Product Code [id number] BLOO D BANK Dispense Status Transfused CH BLOOD BANK Blood Expiration Date BLOOD BANK Unit Number [id number] CH B LOOD BANK Product Blood Type 6200 CH BLOOD BANK Blood Type A+ CH BLOOD BANK Product Code [id number] BLOO D BANK Dispense Status Transfused CH BLOOD BANK Blood Expiration Date BLOOD BANK Unit Number [id number] CH B LOOD BANK Product Blood Type 0600 BLOOD BANK Blood Type A- CH BLOOD BANK Product Code [id number] BLOO D BANK Dispense Status Transfused CH BLOOD BANK Blood Expiration Date [id number] BLOOD BANK Unit Number [id number] CH B LOOD BANK Product Blood Type 6200 BLOOD BANK Blood Type A+ CH BLOOD BANK Blood Venous blood specimen / Unknown Ronnie Jackson MD BLOOD BANK PRODUCT ORDERAB LES Final Result BLO[facility] BANK [address] [place] [address], * POCT glucose meter (01/03/2025 3:34 AM EST) POCT Glucose 90 74 - 99 mg/dL 01/03/2025 3:35 AM EST [facility] Comment:Accuracy of a [...] for testing. Comment 01/03/2025 3:35 AM EST [facility] 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 Machine Operator Helper ID Robi, Allison 01/04/20 3:35 AM EST [facility] Device ID [id number] 01/03/2025 3:35 AM EST [facility] Specimen Type POC Capillary 01/03/2025 3:35 AM EST [facility] Blood Capillary blood specimen / Unknown 01/03/2025 3:34 AM EST 01/03/2025 3:35 AM EST Satnam Beckford MD LAB POINT OF CARE T EST DOCKED DEVICE UNSOLICITED RESULTS Final Result [facility] [address] [place] [address] * (ABNORMAL) Protime-INR (01/03/2025 3:34 AM EST) Prothrombin Time 27.8(H) 12.0 - 14.3 sec LAB COAGULATION METHOD 01/03/2025 4:13 AM EST [facility] INR 2.6(H) 0.9 - 1.1 LAB COAGULATION METHOD 01/03/2025 4:13 AM EST [facility] Blood Venous blood specimen / Unknown Venipuncture / Unknown 01/03/2025 3:34 AM EST 01/03/2025 3:41 AM EST Narrative [facility] - 01/03/2025 4:13 AM EST OPTIMAL INR RANGES FOR PATIENT ON ORAL ANTICOAGULANT THERAPY Prevention of venous thromboembolism INR 2.0 to 3.0 In patients with heart disease: Atrial fibrillation INR 2.0 to 3.0 Valvular heart disease INR 2.0 to 3.0 Tissue heart valves INR 2.0 to 3.0 Mechanical prosthetic valves INR 2.5 to 3.5 Prevention of recurrent ME INR 2.5 to 3.5 Satnam Beckford MD LAB BLOOD ORDERABLES Final Result Performing Organization Address [facility] Co de Phone Number [facility] [address] [place] [address] * SARS CoV-2/COVID-19 by PCR - Rapid (01/02/2025 9:46 AM EST) [facility] SARS CoV-2/COVID-1 9 RNA PCR Result Not Detected Not Detected 01/02/2025 11:10 AM EST [facility] Swab Nasopharyngeal structure / Unknown Non-blood Collection / Unknown 01/02/2025 9:46 AM EST 01/02/2025 10:06 AM EST Narrative [facility] - 01/02/2025 11:10 AM EST [...] GENERAL ORDERABLES Final Result Performing Organization Address City/[facility]/ZIP Co de Phone Number [facility] [address] [place] [address] * HIV 1 & 2 Antibody/Antigen Screen (01/02/2025 9:40 AM EST) HIV 1 & 2 Antibody/Antigen Screen Non Reactive Non Reactive 01/02/2025 10:42 AM EST [facility] Comment:Screening for HIV 1 & 2 antibodies, and P24 antigen is NONREACTIVE. No confirmatory testing is required. Blood Venous blood specimen / Unknown Venipuncture / Unknown 01/02/2025 9:40 AM EST 01/02/2025 10:01 AM EST Satnam Beckford MD LAB BLOOD ORDERABLES Final Result [facility] [address] [place] [address] * Type and screen (01/02/2025 9:40 AM EST) Pathologist [facility] ABO/Rh A Negative 01/02/2025 10:02 AM EST BLOOD BANK Antibody Screen Negative 01/02/2025 10:02 AM EST BLOOD BANK Specimen Expiration 01/05/2025 23:59 01/02/2025 10:02 AM EST BLO[facility] BANK Blood Venous blood specimen / Unknown Venipuncture / Unknown 01/02/2025 9:40 AM EST 01/02/2025 10:02 AM EST Satnam Beckford MD LAB BLOOD BANK TEST ORDERAB LES Final Result Performing Organization Address City/[facility]/ZIP Co de Phone Number BLOOD BANK [address] [place] [address], * Hepatitis C Virus (HCV) Quantitative PCR (01/02/2025 9:40 AM EST) Pathologist [facility] Hepatitis C Virus (HCV) Quantitative Interpretation Not Detected Not Detected. 01/05/2025 4:19 PM EST [facility] Blood Venous blood specimen / Unknown Venipuncture / Unknown 01/02/2025 9:40 AM EST 01/02/2025 10:01 AM EST Narrative [facility] - 01/05/2025 4:19 PM EST The [facility] M2000 HCV test is a Real Time [...] BLOOD ORDERABLES Final Result Performing Organization Address City/[facility]/[place] [address] * Hepatitis C Antibody (01/02/2025 9:40 AM EST) Hepatitis C Antibody Negative Negative 01/02/2025 10:42 AM EST [facility] Blood Venous blood specimen / Unknown Venipuncture / Unknown 01/02/2025 9:40 AM EST 01/02/2025 10:01 AM EST Satnam Beckford MD LAB BLOOD ORDERABLES Final Result Performing Organization Address [facility] [place] [address] * Hepatitis B Surface Antigen (01/02/2025 9:40 AM EST) Hepatitis B Surf Antigen Negative Negative 01/02/2025 5:37 PM EST [facility] Blood Venous blood specimen / Unknown Venipuncture / Unknown 01/02/2025 9:40 AM EST 01/02/2025 10:02 AM EST Satnam Beckford MD LAB BLOOD ORDERABLES Final Result Performing Organization Address City/[facility] [place] [address] * Hepatitis B Surface Antibody, Quantitative (01/02/2025 9:40 AM EST) Pathologist [facility] Hepatitis B Surface Antibody, Quantitative <8.00 NonReactiv e: <8, Grayzone: 8 - <12, Reactive: >= 12 mIU/mL 01/02/2025 11:14 AM EST [facility] Comment: Nonreactive. Individual is considered not immune to HBV infection. Blood Venous blood specimen / Unknown Venipuncture / Unknown 01/02/2025 9:40 AM EST 01/02/2025 10:02 AM EST Satnam Beckford MD LAB BLOOD ORDERABLES Final Result Performing Organization Address [facility] Co de Phone Number [facility] [address] [place] [address] * Hepatitis B Core Total Antibody IgG,IgM (01/02/2025 9:40 AM EST) Pathologist [facility] Hepatitis B Core Total Antibody IgG,IgM Negative Negative 01/02/2025 11:14 AM EST [facility] Blood Venous blood specimen / Unknown Venipuncture / Unknown 01/02/2025 9:40 AM EST 01/02/2025 10:02 AM EST Satnam Beckford MD LAB BLOOD ORDERABLES Final Result Performing Organization Address [facility] Phone Number [facility] [address] [place] [address] * (ABNORMAL) Vitamin D 25 Hydroxy (01/02/2025 9:40 AM EST) Vitamin D 25 Hydroxy 16.2(L) 20.0 - 80.0 ng/mL 01/02/2025 11:15 AM EST [facility] Blood Venous blood specimen / Unknown Venipuncture / Unknown 01/02/2025 9:40 AM EST 01/02/2025 10:02 AM EST Narrative [facility] - 01/02/2025 11:15 AM EST Testing performed on [employer], standardized against NIST SRM 2972. When testing [...] to 80 ng/mL Possible toxicity: >100 ng/mL Satnam Beckford MD LAB BLOOD ORDERABLES Final Result Performing Organization Address City/[facility]/ZIP Co de Phone Number [facility] [address] [place] [address] * (ABNORMAL) APTT (01/02/2025 9:40 AM EST) aPTT 53(H) 25 - 35 sec LAB COAGULATION METHOD 01/02/2025 10:20 AM EST [facility] Blood Venous blood specimen / Unknown Venipuncture / Unknown 01/02/2025 9:40 AM EST 01/02/2025 10:01 AM EST Satnam Beckford MD LAB BLOOD ORDERABLES Final Result Performing Organization Address City/[facility] Co de Phone Number [facility] [address] [place] [address] * (ABNORMAL) Protime-INR (01/02/2025 9:40 AM EST) Prothrombin Time 26.5(H) 12.0 - 14.3 sec LAB COAGULATION METHOD 01/02/2025 10:20 AM EST [facility] INR 2.4(H) 0.9 - 1.1 LAB COAGULATION METHOD 01/02/2025 10:20 AM EST [facility] Blood Venous blood specimen / Unknown Venipuncture / Unknown 01/02/2025 9:40 AM EST 01/02/2025 10:01 AM EST Narrative [facility] - 01/02/2025 10:20 AM EST OPTIMAL INR RANGES FOR PATIENT ON ORAL ANTICOAGULANT THERAPY Prevention of venous thromboembolism INR 2.0 to 3.0 In patients with heart disease: Atrial fibrillation INR 2.0 to 3.0 Valvular heart disease INR 2.0 to 3.0 Tissue heart valves INR 2.0 to 3.0 Mechanical prosthetic valves INR 2.5 to 3.5 Prevention of recurrent ME INR 2.5 to 3.5 us Satnam Beckford MD LAB BLOOD ORDERABLES Final Result [facility] [address] [place] [address] * (ABNORMAL) Comprehensive metabolic panel (01/02/2025 9:40 AM EST) Glucose, Plasma 83 74 - 99 mg/dL 01/02/2025 10:32 AM EST [facility] BUN, Plasma 14 7 - 21 mg/dL 01/02/2025 10:32 AM EST [facility] Creatinine, Plasma 0.85 0.70 - 1.20 mg/dL 01/02/2025 10:32 AM EST [facility] BUN/Creatinine Ratio 16 01/02/2025 10:32 AM EST [facility] Sodium, Plasma 139 136 - 145 mmol/L 01/02/2025 10:32 AM EST [facility] Potassium, Plasma 4.2 3.6 - 4.9 mmol/L 01/02/2025 10:32 AM EST [facility] Chloride, Plasma 107 97 - 107 mmol/L 01/02/2025 10:32 AM EST [facility] CO2, Plasma 22 22 - 29 mmol/L 01/02/2025 10:32 AM EST [facility] Anion Gap 10 6 - 16 mmol/L 01/02/2025 10:32 AM EST [facility] Total Calcium, Plasma 8.6(L) 8.9 - 10.2 mg/dL 01/02/2025 10:32 AM EST [facility] Total Protein 6.1(L) 6.3 - 7.9 g/dL 01/02/2025 10:32 AM EST [facility] Albumin, Plasma 2.9(L) 3.5 - 5.2 g/dL 01/02/2025 10:32 AM EST [facility] AST, Plasma 58(H) 10 - 50 U/L 01/02/2025 10:32 AM EST [facility] ALT, Plasma 28 10 - 50 U/L 01/02/2025 10:32 AM EST [facility] Alkaline Phosphatase, Plasma 134(H) 40 - 115 U/L 01/02/2025 10:32 AM EST [facility] Total Bilirubin, Plasma 13.2(H) 0.2 - 1.1 mg/dL 01/02/2025 10:32 AM EST [facility] eGFRcr 109.2 mL/min/1.7 3m*2 01/02/2025 10:32 AM EST [facility] Comment:Reported eGFRcr in m L/min/1.73m2 is based the CKD-EPI 2020 equation that does not use a race coefficient. Blood Venous blood specimen / Unknown Venipuncture / Unknown 01/02/2025 9:40 AM EST 01/02/2025 10:02 AM EST us Satnam Beckford MD LAB BLOOD ORDERABLES Final Result [facility] [address] [place] [address] * (ABNORMAL) CBC and Differential (01/02/2025 9:40 AM EST) WBC Count 2.84(L) 3.70 - 10.30 10*3/uL LAB HEMATOLOGY METHOD 01/02/2025 10:10 AM EST [facility] RBC Count 2.76(L) 4.60 - 6.10 10*6/uL LAB HEMATOLOGY METHOD 01/02/2025 10:10 AM EST [facility] HGB 8.7(L) 13.7 - 17.5 g/dL LAB HEMATOLOGY METHOD 01/02/2025 10:10 AM EST [facility] HCT 28.6(L) 40.0 - 51.0 % LAB HEMATOLOGY METHOD 01/02/2025 10:10 AM EST [facility] Platelet Count 72(L) 155 - 369 10*3/uL LAB HEMATOLOGY METHOD 01/02/2025 10:10 AM EST [facility] MCV 104(H) 79 - 98 fL LAB HEMATOLOGY METHOD 01/02/2025 10:10 AM EST [facility] MCH 31.5 26.0 - 32.0 pg LAB HEMATOLOGY METHOD 01/02/2025 10:10 AM EST [facility] MCHC 30.4(L) 30.7 - 35.5 g/dL LAB HEMATOLOGY METHOD 01/02/2025 10:10 AM [facility] RDW 20.5(H) 11.5 - 14.5 % LAB HEMATOLOGY METHOD 01/02/2025 10:10 AM [facility] MPV 10.6 8.8 - 12.5 fL LAB HEMATOLOGY METHOD 01/02/2025 10:10 AM [facility] nRBC 0.0 <=0.0 per 100 WBCs LAB HEMATOLOGY METHOD 01/02/2025 10:10 AM [facility] Differential Type Automated LAB HEMATOLOGY METHOD 01/02/2025 10:10 AM [facility] Neutrophils % 49 % LAB HEMATOLOGY METHOD 01/02/2025 10:10 AM [facility] Lymphocytes % 30 % LAB HEMATOLOGY METHOD 01/02/2025 10:10 AM [facility] Monocytes % 16 % LAB HEMATOLOGY METHOD 01/02/2025 10:10 AM [facility] Eosinophils % 4 % LAB HEMATOLOGY METHOD 01/02/2025 10:10 AM [facility] Basophils % 1 % LAB HEMATOLOGY METHOD 01/02/2025 10:10 AM [facility] Immature Granulocytes % 0 % LAB HEMATOLOGY METHOD 01/02/2025 10:10 AM [facility] Neutrophils Absolute 1.39(L) 1.60 - 6.10 10*3/uL LAB HEMATOLOGY METHOD 01/02/2025 10:10 AM [facility] Lymphocytes Absolute 0.85(L) 1.20 - 3.90 10*3/uL LAB HEMATOLOGY METHOD 01/02/2025 10:10 AM [facility] Monocytes Absolute 0.45 0.30 - 0.90 10*3/uL LAB HEMATOLOGY METHOD 01/02/2025 10:10 AM [facility] Eosinophils Absolute 0.11 0.00 - 0.50 10*3/uL LAB HEMATOLOGY METHOD 01/02/2025 10:10 AM [facility] Basophils Absolute 0.03 0.00 - 0.10 10*3/uL LAB HEMATOLOGY METHOD 01/02/2025 10:10 AM [facility] Immature Granulocytes Absolute 0.01 0.00 - 0.06 10*3/uL LAB HEMATOLOGY METHOD 01/02/2025 10:10 AM EST [facility] Blood Venous blood specimen / Unknown Venipuncture / Unknown 01/02/2025 9:40 AM EST 01/02/2025 10:02 AM EST Narrative [facility] - 01/02/2025 10:10 AM EST Therapeutic decision making should be based on absolute values, rather than percentages. us Satnam Beckford MD LAB BLOOD ORDERABLES Final Result [facility] [address] [place] [address] documented in this encounter Visit Diagnoses Diagnosis [...] 25 g, Intravenous, Once, 1 dose, On Sun01/09/25 at 1015, RoutineIndications:Hypotension New Bag 01/09/2025 10:31 [...] 5 mg, Oral, Daily, First dose on Sun01/05/25 at 1745, Until Discontinued, Routine Given 01/13/2025 8:48 AM EST 5 mg Given 2025 8:52 AM EST 5 mg Given 01/11/2025 8:26 AM EST 5 mg aspirin chewable tablet 81 mg 81 mg, Oral, Daily, First dose on Sun01/08/25 at 1200, Until Discontinued, Routine Given 01/11/2025 8:26 AM EST 81 mg Given 01/10/2025 9:29 AM EST 81 mg Given 01/09/2025 8:44 AM EST 81 mg aspirin chewable tablet 81 mg 81 mg, Oral, Daily, First dose (after last reorder) on Sun01/12/25 at 1730, Until Discontinued, Routine Given 01/16/2025 [...] on Sun01/03/25 at 0900, Until Discontinued, Routine Given 01/16/2025 8:31 AM EST 10 mg Given 01/15/2025 8:41 AM EST 10 mg Given 01/14/2025 9:16 AM EST 10 mg fentaNYL (Sublimaze) injection 25 mcg 25 mcg, Intravenous, Every 2 hour PRN, Starting on Sun01/03/25 at 1726, Until Sun01/07/25 at 1302, Routine, Moderate Severe Pain with CPOT score of 3 or greater OR FLACC PAINAD NPASS NRS White-Frances Faces score of 4 or greater OR DVPRS NIPS score of 5 or greater Given 01/05/2025 9:13 AM EST 25 mcg Given 01/04/2025 7:30 AM EST 25 mcg Given 01/03/2025 6:26 PM EST 25 mcg fentaNYL (Sublimaze) injection 50 mcg 50 mcg, Intravenous, Every 2 hour PRN, Starting on Sun01/03/25 at 1726, Until Sun01/07/25 at 1302, Routine, Moderate Severe Pain with CPOT score of 3 or greater OR FLACC PAINAD NPASS NRS White-Frances Faces score of 4 or greater OR DVPRS NIPS score of 5 or greater Given 01/05/2025 3:54 AM EST 50 mcg [...] Oral, Daily with breakfast, First dose on 01/03/25 at 0800, Until Discontinued Given 01/16/2025 8:32 [...] Once in imaging, 1 dose, Starting on 01/10/25 at 1512, Until 01/10/25 at 1612, Routine, Imaging Protocol Orders Given 01/10/2025 4:12 PM EST 19.5 mL glucagon (human recombinant) injection 1 mg 1 mg, Intramuscular, Every 15 min PRN, Starting on 01/12/25 at 0617, Until Sun01/16/25 at 1932, Routine, low blood sugar per Hypoglycemia Prevention and Treatment protocol glucose (Glutose) 40 % oral gel 15-30 grams of glucose 15-30 grams of glucose, Sublingual, Every 15 min PRN, Starting on 01/12/25 at 0617, Until Sun01/16/25 at 1932, Routine, [...] needed, Starting on 01/12/25 at 1214, Until 01/12/25 at 1258, Routine, Intraprocedure Given 2025 12:14 [...] Every 6 hours scheduled, First dose on 01/03/25 at 1800, Until Discontinued, Routine, Recovery(Phase II-Outpatient)/On [...] Cassia 01/15/25 at 1130, Last dose on Sun01/21/25 at [...] 20 mL, Infiltration, Once, 1 dose, On Sun01/07/25 at 1345, Routine Given 01/07/2025 3:17 PM EST 20 mL lidocaine (Xylocaine) 1 % injection 20 mL 20 mL, Infiltration, Once, 1 dose, On Cassia 01/08/25 at 1200, Routine Given 01/08/2025 4:15 PM EST 20 mL lidocaine 0.9% in sodium bicarbonate (buffered lidocaine) solution solution As needed, Starting on Sun01/13/25 at 1614, Until Sun01/13/25 at 1614, Routine, Intraprocedure Given 01/13/2025 4:14 PM EST 10 mL magnesium sulfate IVPB 2 g 2 g, Intravenous, Once, 1 dose, On 01/10/25 at 1445, Routine, Recovery(Phase II-Outpatient)/On Unit(Inpatient) New Bag 01/10/2025 2:41 PM EST 2 g 25 mL/hr magnesium sulfate IVPB 2 g 2 g, Intravenous, Once, 1 dose, On Sun01/11/25 at 0730, Routine, Recovery(Phase II-Outpatient)/On Unit(Inpatient) New Bag 01/11/2025 8:24 AM EST 2 g 25 mL/hr magnesium sulfate IVPB 4 g 4 g, Intravenous, Every 4 hours, 2 doses, First dose on Sun01/03/25 at 1700, Last dose on Sun01/03/25 at 2100, Routine New Bag 01/03/2025 8:22 PM EST 4 g 25 mL/hr New Bag 01/03/2025 4:20 PM EST 4 g 25 mL/hr methocarbamol (Robaxin) tablet 500 mg 500 mg, Oral, 3 times daily PRN, Starting on 01/03/25 at 1921, Until Sun01/04/25 at 1057, Routine, muscle spasms Given 01/03/2025 [...] times daily, First dose on Sun01/06/25 at 2100, Until Discontinued, Routine Given 01/11/2025 [...] PRN, Starting on 01/03/25 at 1430, Until 01/16/25 at 1932, Routine, Recovery(Phase II-Outpatient)/On Unit(Inpatient), nausea, vomiting Given 01/04/2025 5:22 PM EST 4 mg Given 01/04/2025 8:57 AM EST 4 mg Given 01/03/2025 7:51 PM EST 4 mg oxyCODONE (Roxicodone) immediate release tablet 10 mg 10 mg, Oral, Every 6 hours PRN, Starting on 01/03/25 at 1920, Until Sun01/09/25 at 0927, Routine, Moderate Severe Pain with CPOT score of 3 or greater OR FLACC PAINAD NPASS NRS White-Frances Faces score of 4 or greater OR DVPRS NIPS score of 5 or greater Given 01/08/2025 2:57 PM EST 10 mg Given 01/08/2025 9:04 AM EST 10 mg Given 01/07/2025 3:36 PM EST 10 mg oxyCODONE (Roxicodone) immediate release tablet 10 mg 10 mg, Oral, Every 4 hours PRN, Starting on 01/09/25 at 0926, Until Sun01/16/25 at 1932, Routine, Moderate Severe Pain with CPOT score of 3 or greater OR FLACC PAINAD NPASS NRS White-Frances Faces score of 4 or greater OR DVPRS NIPS score of 5 or greater Given 01/13/2025 5:49 AM EST 10 mg Given 01/11/2025 8:26 AM EST 10 mg Given 01/10/2025 10:26 PM EST 10 mg oxyCODONE (Roxicodone) immediate release tablet 5 mg 5 mg, Oral, Every 6 hours PRN, Starting on 01/03/25 at 1727, Until 01/03/25 at 1921, Routine, Moderate Severe Pain with CPOT score of 3 or greater OR FLACC PAINAD NPASS NRS White-Frances Faces score of 4 or greater OR DVPRS NIPS score of 5 or greater Given 01/03/2025 5:33 PM EST 5 mg oxyCODONE (Roxicodone) immediate release tablet 5 mg 5 mg, Oral, Every 6 hours PRN, Starting on Sun01/03/25 at 1920, Until Sun01/09/25 at 0927, Routine, Moderate Severe Pain with CPOT score of 3 or greater OR FLACC PAINAD NPASS NRS White-Frances Faces score of 4 or greater OR DVPRS NIPS score of 5 or greater Given 01/09/2025 5:11 AM EST 5 mg oxyCODONE (Roxicodone) immediate release tablet 5 mg 5 mg, Oral, Every 4 hours PRN, Starting on Sun01/09/25 at 0926, Until Sun01/16/25 at 1932, Routine, Moderate Severe Pain with CPOT score of 3 or greater OR FLACC PAINAD NPASS NRS Whiet-Frances Faces score of 4 or greater OR DVPRS NIPS score of 5 or greater Given 01/15/2025 6:33 AM EST 5 mg [...] 40 mg, Intravenous, Daily, First dose on 01/03/25 at 1530, Until Discontinued, Routine, Recovery(Phase II-Outpatient)/On Unit(Inpatient) Given 01/04/2025 8:46 AM EST 40 mg Given 01/03/2025 3:02 PM EST 40 mg phytonadione (Vitamin K) 10 mg in sodium chloride 0.9 % 50 mL IVPB 10 mg, Intravenous, Every 24 hours, 3 doses, First dose on 01/03/25 at 1530, Last dose on Sun01/05/25 at [...] at 1400, Administer over 0.5 Hours, Routine Bag 01/04/2025 2:11 PM EST 3.375 g 220 mL/hr New 01/04/2025 7:42 AM EST 3.375 g 220 [...] Oral, Daily, 5 doses, First dose on Csasia 02/05/25 at 0900, Last dose on Sun02/09/25 at [...] kg (6.36-31.8 mL/hr), Intravenous, Titrated, Starting on Sun01/03/25 at 1545, Until Sun01/03/25 at 1721, Routine Rate Change - Dual [...] on Sun01/03/25 at 1700, Until Discontinued, Routine Given 01/16/2025 4:48 AM EST 10 mL Given 01/15/2025 5:34 PM EST 10 mL Given 01/15/2025 4:01 AM EST 10 mL sodium chloride 0.9 % flush 10 mL 10 mL, Intravenous, Every 1 hour PRN, Starting on Sun01/03/25 at 1608, Until Sun01/16/25 at 1932, Routine, [...] 10 mL, Intravenous, As needed, Starting on 01/13/25 at 1515, Until Sun01/16/25 at 1932, Routine, [...] Oral, Every evening (1800), First dose on 01/09/25 at 1800, Until Discontinued, Routine Given 01/09/2025 6:19 PM EST 1 mg tacrolimus (Prograf) capsule 1 mg 1 mg, Oral, 2 times daily (0600 & 1800), First dose (after last modification) on 01/13/25 at 1800, Until Discontinued, Routine Given 01/16/2025 [...] 450 mg, Oral, Daily, First dose on Sun01/10/25 at 0900, Until Discontinued, Routine Given 01/16/2025 [...] Daily, First dose (after last reorder) on Sun01/12/25 at 1730, Until Discontinued, Routine 0916 (Given - Provider: Bree Mcfarland RN) 0840 (Given - Provider: Abigail Richmond, DEMETRIA) 0831 (Given - Provider: Armida Oscar, DEMETRIA) bisacodyl (Dulcolax) suppository 10 mg 10 mg, [...] Bree Mcfarland RN)2116 (Given - Provider: Mirtha M Ruben, RN) 0842 (Given - Provider: Abigail Richmond RN)2056 (Given - Provider: Allison Rosenbaum, DEMETRIA) 0832 (Given - Provider: Armida Oscar RN) carvedilol (Coreg) tablet 25 mg 25 mg, Oral, 2 times daily, First dose (after last modification) on Sun01/05/25 at 0900, Until Discontinued, Routine 0916 (Given - Provider: Bree Mcfarland RN)2109 (Given - Provider: Mirtha Miranda RN) 0841 (Given - Provider: Abigail Rihcmond RN)2057 (Given - Provider: Allison Rosenbaum RN) 0832 (Given - Provider: Armida Oscar RN) ergocalciferol (Vitamin D-2) capsule 50,000 Units 50,000 Units, Oral, Weekly, First dose on Sun01/09/25 at 0900, Until Discontinued, Routine 0831 (Given - Provid er: Armida Ocsar RN) escitalopram (Lexapro) tablet 10 mg 10 [...] on Sun01/06/25 at 0945, Until Discontinued, Routine 0916 (Given - Provider: Bree Mcfarland RN) heparin (porcine) injection 5,000 Units 5,000 Units, Subcutaneous, Every 8 hours, First dose (after last modification) on Sun01/14/25 at 1400, Until Discontinued, Routine 1431 (Given - Provider: Bree Mcfarland RN)2110 (Given - Provider: Mirtha Miranda RN) 0633 (Given - Provider: Mirtha Miranda, RN)1349 (Given - Provider: Abigail Richmond RN)2100 [...] Mcfarland RN) 0843 (Given - Provider: Abigail Richmond RN)1207 (Not Given - Provider: Abigail Richmond [...] Last dose on Sun01/21/25 at 0900, Routine 1051 (Given - Provider: [...] Rosenbaum RN) 0831 (Given - Provider: Armida Oscar RN)1320 (Given - Provider: Armida Oscar RN)1800 [...] on 01/11/25 at 2100, Until Discontinued, Routine 0915 (Given - Provider: Bree Mcfarland RN)211 (Given - Provider: Mirtha Miranda RN) 0841 (Given - Provider: Abigail Richmond, DEMETRIA) mycophenolate (Cellcept) capsule 750 mg 750 mg, Oral, 2 times daily, First dose (after last modification) on Cassia 01/15/25 at 2100, Until Discontinued, Routine 2057 (Given - Provider: Allison Rosenbaum RN) 0832 (Given - Provider: Armida Oscar, DEMETRIA) pantoprazole (Protonix) EC tablet 40 mg 40 mg, Oral, Daily, First dose on Sun01/05/25 at 0900, Until Discontinued, Routine 09 (Given - Provider: Bree Mcfarland RN) 08 (Given - Provider: Abigail Richmond, DEMETRIA) 0832 (Given - Provider: Armida Oscar, DEMETRIA) piperacillin-tazobacta m (Zosyn) 4.5 g in sodium chloride 0.9% 100 mL IVPB (vial adapter required) (CANCELED) 4.5 g, Intravenous, Every 6 hours, 27 doses, First dose on Sun01/11/25 at 0730, Last dose on 01/17/25 at 1930, Routine 0103 (New Bag - Provider: Mirtha Miranda RN)0630 (New Bag - Provider: Mirtha Miranda RN)1430 (New Bag - Provider: Bree Mcfarland RN)211 (New Bag - Provider: Mirtha Miranda RN - Comment: patient wanted to shower at scheduled time) 0225 (New Bag - Provider: Mirtha Miranda RN)0633 (New Bag - Provider: Mirtha Miranda RN) polyethylene glycol (Miralax) packet 17 g 17 g, Oral, Daily, First dose on Sun01/06/25 at 1115, Until Discontinued, Routine 0920 (Not Given - Provider: Bree Mcfarland RN - Reason: Patient/Family/Repre sentative Refused) 0840 (Given - Provider: Abigail Richmond, DEMETRIA) 0838 (Not Given - Provider: Armida Oscar [...] II-Outpatient)/On Unit(Inpatient) 0915 (Given - Provider: Bree Mcfarland RN) predniSONE (Deltasone) tablet 50 mg(Linked Group 1) [...] Routine 0915 (Given - Provider: Bree Mcfarland RN)2113 (Not Given - Provider: Mirtha Miranda RN - Reason: Patient/Family/Repre sentative Refused) 0841 (Given - Provider: Abigail Richmond RN)2057 (Given - Provider: Allison Rosenbaum RN) 0838 (Not Given - Provider: Armida Oscar RN - Reason: Patient/Family/Represen tative Refused) sodium chloride 0.9 % flush 10 mL 10 mL, Intravenous, Every 12 hours, First dose on Sun01/03/25 at 1700, Until Discontinued, Routine 0411 (Given - Provider: Mirtha Miranda RN)1740 (Given - Provider: Bree Mcfarland RN) 0401 (Given - Provider: Mirtha Miranda RN)1734 (Given - Provider: Abigail Richmond, DEMETRIA) 0448 (Given - Provider: Allison Rosenbaum RN)1700 (Canceled Entry - Provider: Armida Oscar RN) sodium chloride 0.9 % flush 10 mL(Linked Group 2) 10 mL, Intravenous, Every 12 hours, First dose on Sun01/12/25 at 1115, Until Discontinued, Routine, Holding - Preprocedure 1158 (Given - Provider: Bree Mcfarland RN)2216 (Given - Provider: Mirtha Miranda RN) 1207 [...] Miranda RN) 0844 (Given - Provider: Abigail Richmond, DEMETRIA)2100 (Given - Provider: Allison Rosenbaum, DEMETRIA) 1000 (Canceled Entry - Provider: Armida Oscar RN) sodium chloride 0.9 % flush 10 mL(Linked Group 5) 10 mL, Intravenous, Every 12 hours, First dose on Sun01/13/25 at 1615, Until Discontinued, Routine, Holding - Preprocedure 0354 (Given - Provider: Mirtha Miranda RN)1600 (Given - Provider: Bree Mcfarland RN) 0323 (Given - Provider: Mirtha Miranda RN)0843 (Given - Provider: Abigail Richmond, DEMETRIA)1547 (Given - Provider: Abigail Richmond RN) 0334 (Given - Provider: Allison Rosenbaum RN)1615 (Canceled Entry - Provider: Armida Oscar RN) sulfamethoxazole-trime thoprim (Bactrim) 400-80 MG per tablet 1 tablet 1 tablet, Oral, Daily, First dose on Sun01/10/25 at 0900, Until Discontinued, Routine 0915 (Given - Provider: Bree Mcfarland RN) 0841 (Given - Provider: Abigail Richmond, DEMETRIA) 0831 (Given - Provider: Armida Oscar RN) tacrolimus (Prograf) capsule 1 mg 1 mg, Oral, 2 times daily (0600 & 1800), First dose (after last modification) on Sun01/13/25 at 1800, Until Discontinued, Routine 0627 (Given - Provider: Mirtha Miranda RN)1740 (Given - Provider: Bree Mcfarland RN) 0633 (Given - Provider: Mirtha Miranda RN)1734 (Given - Provider: Abigail Richmond, DEMETRIA) 0606 (Given - Provider: Allison Rosenbaum, DEMETRIA)1800 (Canceled Entry - Provider: Automatic Discharge Provider - Comment: Automatically canceled at discontinue of medication order) traZODone (Desyrel) tablet 50 mg 50 mg, Oral, Nightly, First dose on Sun01/08/25 at 2100, Until Discontinued, Routine 2110 (Given - Provider: Mirtha Miranda RN) 205 (Given - Provider: Allison Rosenbaum RN) ursodiol (Actigall) capsule 300 mg (CANCELED) 300 mg, Oral, 2 times daily, First dose on 01/10/25 at 1200, Until Discontinued, Routine 0915 (Given - Provider: Bree Mcfarland, DEMETRIA)2109 (Given - Provider: Mirtha Miranda, DEMETRIA) 0844 (Given - Provider: Abigail Richmond, DEMETRIA)2058 (Given - Provider: Allison Rosenbaum, DEMETRIA) 0831 (Given - Provider: Armida Oscar, DEMETRIA) ursodiol (Actigall) capsule 600 mg 600 mg, Oral, 2 times daily, First dose (after last modification) on Sun01/16/25 at 2100, Until Discontinued, Routine valGANciclovir (Valcyte) tablet 450 mg 450 mg, Oral, Daily, First dose on 01/10/25 at 0900, Until Discontinued, Routine 0916 (Given - Provider: Bree Mcfarland RN) 0840 (Given - Provider: Abigail Richmond, DEMETRIA) 0832 (Given - Provider: Armida Oscar RN) PRN Medication Order 01/14/2025 01/15/2025 01/16/2025 dextrose 10 % (D10W) bolus 125 mL(Linked Group 6) 125 mL, Intravenous, Every 15 min PRN, Starting on Sun01/12/25 at 0617, Until Sun01/16/25 at 193, Administer over 15 Minutes, Routine, low blood sugar BG 51-89 mg/dL dextrose 10 % (D10W) bolus 250 mL(Linked Group 6) 250 mL, Intravenous, Every 15 min PRN, Starting on Sun01/12/25 at 0617, Until Sun01/16/25 at 193, Administer over 15 Minutes, Routine, PRN low [...] at 0926, Until Sun01/16/25 at 1932, Routine, Moderate Severe Pain with CPOT score of 3 or greater OR FLACC PAINAD NPASS NRS White-Frances Faces score of 4 or greater OR DVPRS NIPS score of 5 or greater 0627 (See Alternative - Provider: Mirtha Miranda, RN) 0633 (See Alternative - Provider: Mirtha Miranda, RN) oxyCODONE (Roxicodone) immediate release tablet 5 mg(Linked Group 9) 5 mg, Oral, Every 4 hours PRN, Starting on Sun01/09/25 at 0926, Until Sun01/16/25 at 193, Routine, Moderate Severe Pain with CPOT score of 3 or greater OR FLACC PAINAD NPASS NRS White-Frances Faces score of 4 or greater OR DVPRS NIPS score of 5 or greater 0627 (Given - Provider: Mirtha Miranda, RN) 0633 (Given - Provider: Mirtha Miranda, RN) sodium chloride 0.9 % flush 10 mL 10 mL, Intravenous, Every 1 hour PRN, Starting on Sun01/03/25 at 1608, Until Sun01/16/25 at 193, Routine, Flush Before and After EVERY dose of medication. sodium chloride 0.9 % flush 10 mL(Linked Group 2) 10 mL, Intravenous, As needed, Starting on Sun01/12/25 at 1020, Until Sun01/16/25 at 193, Routine, Holding - Preprocedure, line care sodium chloride 0.9 % flush 10 mL(Linked Group 3) 10 mL, Intravenous, As needed, Starting on Sun01/12/25 at 1020, Until Sun01/16/25 at 193, Routine, Holding - Preprocedure, line care sodium chloride 0.9 % flush 10 mL(Linked Group 4) 10 mL, Intravenous, As needed, Starting on Sun01/13/25 at 0909, Until Sun01/16/25 at 193, Routine, On Unit - Preprocedure, line care sodium chloride 0.9 % flush 10 mL(Linked Group 5) 10 mL, Intravenous, As needed, Starting on Sun01/13/25 at 1515, Until Sun01/16/25 at 1932, Routine, Holding - Preprocedure, line care sodium chloride 0.9 % flush 20 mL 20 mL, Intravenous, Every 1 hour PRN, Starting on Sun01/03/25 at 1608, Until Sun01/16/25 at 1932, Routine, [...] pulled lidocaine from pyxis via override. Coretta Odonnell (resident) with RN when pulling) Linked Groups [...] Sun01/12/25 at 0617, Until Sun01/16/25 at 193, Administer over 15 Minutes, Routine, low blood sugar BG 51-89 mg/dL Or dextrose 10 % (D10W) bolus 250 mLJump to med 250 mL, Intravenous, Every 15 min PRN, Starting on Sun01/12/25 at 0617, Until Sun01/16/25 at 193, Administer over 15 Minutes, Routine, PRN low [...] 1 hour PRN, Starting on Sun01/03/25 at 1657, Until Sun01/16/25 at 193, Routine, high blood pressure, SBP>160, Second-line Or hydrALAZINE (Apresoline) injection 20 mgJump to med 20 mg, Intravenous, Every 1 hour PRN, Starting on Sun01/03/25 at 1657, Until Sun01/16/25 at 1932, Routine, [...] at 0926, Until Sun01/16/25 at 1932, Routine, Moderate Severe Pain with CPOT score of 3 or greater OR FLACC PAINAD NPASS NRS White-Frances Faces score of 4 or greater OR DVPRS NIPS score of 5 or greater Or oxyCODONE (Roxicodone) immediate release tablet 10 mgJump to med 10 mg, Oral, Every 4 hours PRN, Starting on Sun01/09/25 at 0926, Until Sun01/16/25 at 1932, Routine, Moderate Severe Pain with CPOT score of 3 or greater OR FLACC PAINAD NPASS NRS White-Frances Faces score of 4 or greater OR DVPRS NIPS score of 5 or greater documented in this encounter Additional Health Concerns [...] documented as of this encounter Care Teams Desk Clerks Supervisor Relationship Specialty Start Date End Date Param Eng DO [address] [place] [id number] PCP - General 12/22/24 documented as of this encounter
--- OUTSIDE RECORDS SUMMARY | 2025-01-03 07:00 | XMS_ITS | Encounter Summary ---
Author Organization Healthcare Address [address] [place] [address] Care Team Providers Care Window Shade Estimator Name Role Phone Param Eng DO Primary Care Provider [phone] Reason for Visit * Auth/Cert (Routine) Specialty Diagnoses / Procedures Referred By Contac t Referred To Contact Diagnoses Decompensation of cirrhosis of liver (CMS/HCC) Satnam Beckford MD [address] [place] [address] Phone: tel: fax: [facility] [address] [place] [address] Phone: tel: Referral ID Status Reason Start Date Expiration Date Visits Re quested Visits Authorized [id number] 1 1 Encounter Details Date Type Department Care Team (Late st Contact Info) Description 01/03/2025 7:00 AM EST - 01/03/2025 4:00 PM EST Surgery [facility] OPER[facility] [address] [place] [address] Satnam Beckford MD [address] [place] [address] TRANSPLANT, LIVER Surgery Details Date/Time [...] or relatives? Twice a week 01/02/2025 Attends Worship Services Not on file 01/02 Do you belong to any clubs o r organizations such as orthodox groups, unions, fraternal or athletic groups, or [...] any time in the past 12 m [facility], were you homeless or living in a alf (including now)? No 01/02/2025 [facility] Utilities Answer Date Recorded In [...] drink first t edgardo in the morning (EYE-KST OPERATOR) to steady your nerves or to [...] Author 250 01/14/2025 6:30 AM EST Mirtha Miranda RN * Pre-op Phone Call Discharge Planning Question Answer Date of Assessment Author Patient expects to be discharged to: inpatient 2025 10:23 AM EST Imelda Lucas RN * PT Therapeutic Procedures Time Entry [...] CLAUDIA (WDL) X 01/16/2025 12:00 PM EST Armida Mora, RN R Eye Sclera yellow 01/16/2025 12:00 PM EST Anay msArmida S RN L Eye Sclera yellow 01/16/2025 12:00 PM EST Armida Cueva ms, RN R Ear Intact 01/15/2025 8:00 PM EST Vanda Gabriel L Ear Intact 01/15/2025 8:00 PM EST Harvey , Vanda Nose Intact 01/16/2025 12:00 PM EST Armida Mora, RN Throat Dry 01/04/2025 4:00 PM EST Tila Vazquez, RN Tongue [place];Moist 01/06/2025 4:00 AM EST Sarah Rivera RN Voice Hoarse 01/07/2025 4:[address] RN Mucous Membrane(s) [place];Moist;Intact 01/07/2025 4:00 P M EST Fariha Hill RN Teeth Missing teeth 01/16/2025 12:00 PM EST Armida Cueva ms RN Head and Face Symmetrical 01/16/2025 12:00 PM EST Armida Cueva ms RN Neck Trachea midline 01/15/2025 8:00 PM EST Adrian uer, Vanda Lips Intact 01/15/2025 8:00 PM EST Vanda [...] 01/16/2025 6:10 AM EST Medel, Dynasty K, MANAGER FIRE * Total Weight Change Percent Answer Date of Assessment Author 2222 01/16/2025 6:10 AM EST Medel, Dynasty K, MANAGER FIRE * Weight Change Since Preop Answer Date of Assessment Author 97.38 01/16/2025 6:10 AM EST Medel, Dynasty K, MANAGER FIRE * Initial Excess Weight Answer Date of Assessment Author -86.23 01/02/2025 7:48 PM Allison Mix RN * IBW in lbs (Bariatric) Answer Date of Assessment Author 190.1 01/02/2025 7:48 PM Allison Mix RN * Weight Change Since Last Visit Answer Date of Assessment Author 1.6 01/16/2025 6:10 AM EST Gianfranco, Dynasty K, MANAGER FIRE * IBW in kg (Bariatric) Answer Date [...] elevated off bed 01/15/2025 8:35 PM Allison Mix, DEMETRIA * Sleep Hygiene Promotion Answer Date of Assessment Author awakenings minimized 2025 12:46 AM Daylin Cotto, DEMETRIA * Pain Management Interventions Answer Date of Assessment Author medication (see MAR) 01/15/2025 6:33 AM EST Mirtha Story RN * Fluid/Electrolyte Management Answer Date of Assessment Author intravenous fluid replacement initiated 01/13/20 10:23 AM Imelda Calvo RN * Fever Reduction/Comfort Measures Answer Date of Assessment Author lightweight clothing;lightweight bedding 025 8:35 PM Allison Mix RN * Trust [...] care 01/14/2025 5:45 PM EST Bree Mcfarland, DEMETRIA * Medication Review/Management Answer Date of Assessment Author medications reviewed 01/15/2025 8:37 PM EST Allison Fong RN * Self-Care Promotion Answer Date of Assessment Author independence encouraged;BADL personal objects within reach 01/15/2025 8:37 PM Allison Mix RN * Goal: Anesthesia/Sedation Recovery Question Answer Date of Assessment Author Outcome Anesthesia/Sedation Recovery met 2025 1:12 PM Rodney Bain, DEMETRIA * Discharge Needs Assessment Question Answer Date [...] Risk Identified pain 2025 10:23 AM EST Shayy, Imelda L, RN * Goal: Minimized Risk/Safety Maintenance Question Answer Date of Assessment Author Outcome Minimized Risk and Safety met 025 1:12 PM Rodney Bain, DEMETRIA * Goal: Physiologic Homeostasis Question Answer Date of Assessment Author Outcome Physiologic Homeostasis met 1:12 PM Rodney Bain, RN * RT Positive Expiratory Airway Pressure Question Answer Date of Assessment Author $ PEP Therapeutic Procd Strg Endur Yes 01/09/2025 8:59 PM EST Jaja Carter Delivery Source Aerobika (OPEP) 01/09/2025 8:59 PM EST Raul, Jaja Treatment Perfomed By Independently by p atient or family 01/09/2025 8:59 PM EST Jaja Carter Device Interface Mouth piece 01/09/2025 8:59 PM EST Jaja Carter Repititions Performed 10 01/09/2025 8:59 PM EST [...] 01/16/2025 6:10 AM EST Elver Medel K, MANAGER FIRE * Precautions Question Answer Date of Assessment Author Medical Precautions Post-Surgical precautions;Fall precautions 01/05/2025 9:02 AM EST Armida Joyce Post-Surgical Precautions Abdominal: no lifting >10# 01/05/2025 9:02 AM Armida Jean Baptiste * Date of OT Session Question Answer Date of Assessment Author OT Initials HV 01/13/2025 12:51 PM Armida Solis Date of OT Session [id number] 01/13/2025 12:51 PM Armida Villarreal * Oxygen Therapy Question Answer Date of Assessment Author O2 Flow Rate (L/min) 2 01/05/2025 9:40 AM Elyssa Herrera * HLM Question Answer Date of Assessment Author [facility] Daily Mobility Score 8 01/16/2025 11 :29 AM EST Luis Elizalde * Sensation Question Answer Date of Assessment Author Light Touch: Right Upper Extremity Intact 2024 9:02 AM EST Armida Joyce * Sensation [...] Answer Date of Assessment Author Level of Grainger Contact guard 2025 3:00 PM EST Short, Elyssa Physical/Nonphysical Assist Verbal Cues; Minimal cues;Set-up required 2025 3:00 PM EST Short, Elyssa Assistive Device Bed rails 2025 3:00 PM EST S hort, Elyssa * Bed Mobility Exam: Rolling/Turning Question Answer Date of Assessment Author Level of Grainger Minimum assist (75 % patient effort) 2025 3:00 PM EST Short, Elyssa Physical/Nonphysical Assist Verbal Cues; Minimal cues 2025 3:00 PM EST Short, Elyssa Assistive Device Bed rails 2025 3:00 PM EST S hort, Elyssa * Bed Mobility Exam: Supine to Sit Question Answer Date of Assessment Author Level of Grainger Stand-by assist 01/16/2025 1:27 PM EST Luis Elizalde Physical/Nonphysical Assist Verbal Cues 01/16/2025 1: 27 PM EST Fide Luis Assistive Device Bed rails 2025 3:00 PM EST S hort, Elyssa * Bed Mobility Exam: Sit to Supine Question Answer Date of Assessment Author Level of Grainger Stand-by assist 01/16/2025 1:27 PM EST Tim Elizaldeon Physical/Nonphysical Assist Verbal Cues 01/16/2025 1: 27 PM EST Luis Elizalde * Transfer Exam: Sit to stand Question Answer Date of Assessment Author Level of Grainger Independent 01/16/2025 11:29 AM Luis Astorga Physical/Nonphysical Assist Verbal Cues;Nonverbal cues (demo/gestures);1 person + 1 person to manage equipment 01/13/2025 12:51 PM EST GarsiaArmida chan Assistive Device Walker, rolling 2025 3:00 PM ES Marlene Short Elyssa * Transfer Exam: Stand to Sit Question Answer Date of Assessment Author Level of Grainger Independent 01/16/2025 11:29 AM Luis Astorga Physical/Nonphysical Assist Nonverbal cues (demo/gestures);Verbal Cues;1 person + 1 person to manage equipment 01/13/2025 12:51 PM EST Garsia, Armida Assistive Device Walker, rolling 2025 3:00 PM ES Marlene Short Elyssa * Transfer Exam: Bed to Chair/Chair to Bed Question Answer Date of Assessment Author Type of Transfer Sidesteps 01/05/2025 9:40 AM EST Elyssa Mooney Level of Grainger Minimum assist (75 % patient's effort) 01/05/2025 9:40 AM EST Niraj Elyssa Physical/Nonphysical Assist Nonverbal cu es (demo/gestures);Verbal Cues;Additional assist utilized for safety 01/05/2025 9:40 AM EST Blade Healyin Assistive Device Hand held assist 01/05/2025 9:[address] Blade Healyin * Toilet Transfer Question Answer Date of Assessment Author Assistive Device Walker, rolling;Grab bar 01/08/2025 1:00 PM Nadira Rojo Type of Transfer Ambulation;To toilet 01/08/2025 1:07 PM EST Micki Johnson Level of Grainger Minimum assist (75 % patient's effort) 01/08/2025 [...] of Therapy 2 weeks 01/05/2025 9:40 AM Elyssa Figueroa Discharge Recommendation Outpatient PT;H ome with assistance 01/16/2025 1:27 PM Luis Astorga Equipment Recommended Rolling walker 01/16/2025 1:27 P M Luis Astorga Planned PT Interventions Balance trainin g;Bed mobility training;Gait training;Transfer training;Neuromuscular re-education;Postural re-education;Strengthen ing;Functional Mobility;Caregiver training 01/05/2025 9:40 AM Elyssa Figueroa Therapy Frequency 3 - 5 times per week 01/05/2025 9:40 AM Elyssa Figueroa * Gait Training Question Answer Date of [...] Apparatus Chair follow 01/13/2025 12:51 PM EST Jo AnnYg georgey Assistance Standby assist 01/16/2025 11:29 AM EST Bayron garcia Luis Ambulation Comments Slow speed and sligh tly unsteady but no LOB. Cues for safe direction of RWx. 01/16/2025 11:29 AM EST Fide Luis * HLM Score Question Answer Date of Assessment Author [facility] Daily Mobility Goal 8 01/15/2025 8:0 0 [...] BP 137/86 01/16/2025 12:02 PM EST Susan rface, Doc Flowsheet In Pulse 82 01/16/2025 12:02 PM EST Susan mcfarland, Doc Flowsheet In Heart Rate Source Monitor 01/16/2025 3:20 AM EST Allison Rosenbaum RN MAP (mmHg) 103 01/16/2025 12:02 PM EST Susan ramirezce, Doc Flowsheet In Patient Position Lying 01/16/2025 6:09 AM EST Allison Bernal, DEMETRIA * Oxygen Therapy Question Answer Date of Assessment Author SpO2 95 01/16/2025 12:02 PM EST Susan mcfarland Doc Flowsheet In FiO2 (%) 40 01/03/2025 5:00 PM EST Hedye r, Elyssa ETCO2 (mmHg) 29 01/03/2025 5:00 PM EST Carte r, Elyssa Vent Mode PS/CPAP 01/03/2025 5:00 PM EST Carte r, Elyssa Pulse Oximetry Type Intermittent 01/16/2025 3:20 AM [...] Leo Vinson RN Cardiac Regularity Regular 01/06/2025 4 :00 PM Galileo Fuller RN Cardiac (WDL) X 01/07/2025 12:50 AM Isabel Guallpa RN * Dyno Technician Question Answer Date of Assessment Author Telemetry Strip Reviewed Yes, I have reviewed and acknowledged. 01/06/2025 8:10 PM Isabel Guallpa RN Bedside Dyno Technician On Yes 01/07/2025 12:50 AM Isabel Guallpa RN Bedside Cardiac Audible Yes 01/07/2025 12:50 AM Isabel Guallpa RN Bedside Cardiac Alarms Set Yes 01/07/2025 12:50 AM Isabel Guallpa RN * Pacemaker Question Answer Date of Assessment Author Pacemaker No 01/16/2025 12:00 PM Armida Hernandez RN * Gastrointestinal Question Answer Date of Assessment Author Most Recent BM Date [id number] 01/15/2025 8 :00 PM Allison Mix RN [...] Edema +1 01/13/2025 3:35 PM EST Rodney Andino, RN RLE Edema +2 01/16/2025 12:00 PM [...] 12:00 PM EST Armida Oscar RN * RUE Neurovascular Assessment Question Answer [...] 5:00 AM EST Shaka Burciaga RN * Ricardo Fall Risk Question Answer Date of Assessment Author History of Falling, Immediat e or Within 3 Months 0 01/16/2025 12:00 PM EST Armida Oscar R N Secondary Diagnosis 15 01/16/2025 12:00 [...] of Assessment Author 2.26 01/16/2025 6:10 AM Elver Brandt CNA * BMI (Calculated) Answer Date of Assessment Author 27.56 01/16/2025 6:10 AM Elver Brandt CNA * Pain Location Answer Date of Assessment Author Abdomen 01/15/2025 6:33 AM Mirtha Bright RN * Cardiac Question Answer Date of Assessment Author Commercial Sales Director On No 01/16/2025 12:00 PM Armida Parish RN Telemetry Audible No 01/09/2025 4:00 AM Daylin Jones RN Telemetry Alarms Set No 01/09/2025 4:00 AM E Daylin Bañuelos RN Telemetry Box Number [phone] 01/08/2025 8:00 AM E Grayson Wensha Cardiac (WDL) WDL 01/16/2025 12:00 PM EST Armida Cueva ms, RN Pacemaker No 01/16/2025 12:00 PM EST Armida Mora RN Cardiac Regularity Regular 01/16/2025 12:00 PM ES Armida Mccray RN Heart Sounds S1, S2 01/16/2025 12:00 PM Armida Hernandez RN Telemetry/Dyno Technician No 01/16/2025 12:0 0 PM Armida Parish [...] 4:00 AM EST Shaka Ashraf RN Respiratory ([facility]) X 01/16/2025 12: 00 PM Armida Parish RN Respiratory Additional Assessments No 01/16/2025 12:00 PM Armida Parish RN Respiratory Effort Unlabored 01/16/2025 12 :00 PM Armida Parish RN Respiratory Depth/Rhythm Regular 01/16/2025 12:00 PM Armida Parish RN * RLE ROM Assessment Question Answer Date of Assessment Author RLE Assessment WFL 01/05/2025 9:40 AM EST Elyssa Azul * LLE ROM Assessment Question Answer Date of Assessment Author LLE Assessment WF 01/05/2025 9:40 AM EST Kavita rt, Elyssa * Vitals Question Answer Date of Assessment Author Temp 97.9 01/16/2025 12:02 PM EST Gree n, Shonda S, MANAGER FIRE Temp src Oral 01/16/2025 12:02 PM EST Gree n, Shonda S, MANAGER FIRE Resp 18 01/16/2025 12:02 PM EST Gree n, Shonda S, MANAGER FIRE Weight 3435.65 01/16/2025 6:10 AM EST Thorn ton, Dynasty K, MANAGER FIRE BP Location Left arm 01/16/2025 12:02 PM EST Gree n, Shonda S, MANAGER FIRE BP Method Automatic 01/16/2025 12:02 PM EST Gree n, Shonda S, MANAGER FIRE Weight Method Standing scale 01/16/2025 6:10 AM EST Th ornton, Dynasty K, MANAGER FIRE Oxygen Therapy None 01/16/2025 12:02 PM EST Gr een, Shonda S, MANAGER FIRE * Point of Care Tests Question Answer Date of Assessment Author Provider Role Resident 01/10/2025 8:15 AM EST Rosibel Bangura Blood Glucose Meter 158 01/16/2025 1 2:02 PM EST Shonda Kimbrough S, MANAGER FIRE Provider Name Jayjay Quesada MD 01/10/2025 8:15 AM EST Rosibel Almazan Method of Communication Face to face 01/10/2025 8:15 A M EST Rosibel Delvalle Reason for Communication Review case;Evaluate;Patien t request 01/10/2025 8:15 AM Rosibel Guillen Name of Nurse Notified of Blood Glucose Results (First and Last) Augusta Oscar 01/16/2025 12:02 PM EST Shonda Kimbrough S, MANAGER FIRE Glucose Sample Retrieved From Finger stick 01/16/2025 12:02 PM EST Shonda Kimbrough S, MANAGER FIRE * Vision - Basic Assessment Question Answer Date of Assessment Author Patient Visual Report no acute visual changes 01/05/2025 9:02 AM EST Armida Joyce Current Vision Intact 01/05/2025 9:02 AM EST Armida Baig * Percent Meals Eaten (%) Answer Date of Assessment Author 66 01/16/2025 12:30 PM EST Eulogio Oscar RN * Advance Directives (For Healthcare) Question [...] Parenteral Nutrition (TPN) No 01/02/2025 3:56 PM kAilah Vasquez RN Food allergy, Worship, or Cultural nutrition needs No 01/02/2025 3:56 [...] Line MAP (mmHg) 124 01/05/2025 9:00 AM EST Leo Aguiar RN Arterial Line BP 183/90 01/05/2025 9:00 AM EST Leo Vinson RN PPV 3 01/03/2025 4:00 PM EST Carte r, Elyssa * Art Line (2) Question Answer Date [...] 01/05/2025 9:02 AM Armida Jean Baptiste Mobility Grainger Independent gait without device 01/05/2025 9:02 AM [...] Question Answer Date of Assessment Author RUE Assessment [facility] 01/05/2025 9:02 AM Armida Rosales * LUE ROM Assessment Question Answer Date of Assessment Author LUE Assessment [facility] 01/05/2025 9:02 AM Armida Rosales * Safe Environment Question Answer Date of Assessment Author 37-Pin Connection [Bed and Wall] Yes 01/16/20 8:39 PM Vanda Samuels Arm Bands On ID 01/16/2025 12:00 PM Armida Hernandez RN Side Rails/Bed Safety 44 01/16/2025 12:00 PM Armida Parish, RN NonSkid [...] State Yes 01/16/2025 3:00 PM Armida Farrell ams RN Bed Low Height State Yes 01/16/2025 3:00 PM E Armida Schneider, RN Chair Exit System Activate Status No [...] Assistance Provided independent 01/16/2025 5:15 AM Allison Mix, DEMETRIA Assistive Device Utilized front wheel walker 01/14/2025 [...] 01/02/2025 3:56 PM E Jolene Ratliff RN ALMOND HULLER Evaluation Needed 2 01/02/2025 3:56 PM Jolene Vasquez RN * Assistive Devices Question Answer Date of Assessment Author Assistive Devices None 01/02/2025 3:56 PM Jolene Vasquez RN * Provider Notification Question Answer Date of Assessment Author Response See orders 01/10/2025 8:15 AM EST Rosibel Delvalle Notification Time [id number] 01/10/2025 6:08 AM EST Anay Rodriguez RN [...] Alarm Limit High 100 01/06/2025 8:10 PM EST Isabel Shepherd, RN BP Systolic Alarm Limit Low 90 [...] Limit Low 60 01/06/2025 8:10 P M EST Isabel Shepherd, RN BP Mean Alarm Limit High 110 01/06/2025 8:10 PM Isabel Guallpa RN * Transfer of Nursing Care [...] Armida Parish RN Shift Report Given To rAmida Oscar RN 01/16/2025 8:00 AM Armida Parish [...] Assessment Author Time-out Dual Sign Off 2nd Network Development Coordinator Wilman AUGUSTIN 2025 5:00 AM Daylin Jones RN Supplies Present Suture removal kit;Petroleum gauze;Sterile gauze;Occlusive dressing 2025 5:00 AM Daylin Jones RN Central/PICC Line Removal Safety Precautions Patient instructed to hold breath/Valsalva;Patient in Trendelenburg position;Alternate IV access present 2025 5:00 AM Daylin Jones, DEMETRIA * Routine Extubation Question Answer Date of [...] Kim RD Meets Criteria For Moderate malnutrition 025 1:[address] Based On Mild muscle mass loss;Moderately reduced energy intake 01/07/2025 1:[address] Present on Admission Yes 01/07/2025 1:[address] Unable to Complete Exam Weekend coverage 025 9:30 AM Georgina Bernard LD Malnutrition Identified Yes 01/08/20 1:[address] * Physical Exam Performed On Question Answer Date of Assessment Author Temples (muscles) Mild 01/07/2025 1:00 PM EST Yari Reilly, RD Clavicle (muscle) Mild 01/07/2025 1:00 PM EST Yari Reilly, RD Shoulder (muscle) None 01/07/2025 1:00 PM [...] Yes 01/16/2025 12:02 PM EST Marlene Kimbrough CNA * Neurological Question Answer Date of Assessment Author Neuro ([facility]) [facility] 2025 1:12 PM EST Rodney Vázquez RN * Cardiac Question Answer Date of Assessment Author Cardiac ([facility]) [facility] 2025 1:12 PM EST Rodney Vance RN * Gastrointestinal Question Answer Date of Assessment Author Gastrointestinal ([facility]) [facility] 2025 1:12 PM Rodney Bain RN [...] Date of Assessment Author Feeding Interventions pt edgaro's function al strength and dexterity needed for [...] Assistance Contact guard 01/13/2025 11:06 AM EST Hos kinsKolbyDiego F Rails Single 01/13/2025 11:06 AM EST Hosk insKolbyDiego F Device No device 01/13/2025 11:06 AM EST Hosk ins, Diego F * Dynamic Standing Balance Question Answer Date of Assessment Author Dynamic Standing Level of Assistance Independent 01/16/2025 11:29 AM Luis Astorga Dynamic Standing-Balance Support Left upper extremity support;Right upper extremity support 01/08/2025 1:07 PM Micki Galloway Dynamic Standing-Balance Anterior/Posterior weight shifts;Lateral weight shifts 01/08/2025 1:07 PM Micki Galloway * General Question Answer Date of Assessment Author Next OT Reassessment [id number] 01/05/2025 9:44 AM Armida Munguia Patient/Family Goals [...] Home Living Comments Patient had been to [facility] in September, and was still receiving outpatient PT. 01/05/2025 9:02 AM Armida Jean Baptiste Home Layout One level;Stairs to enter without rails 01/05/2025 9:02 AM Armida Jean Baptiste Home Adaptive Equipment Rollator 01/05/2025 9:02 A M Armida Jean Baptiste Lives With Spouse 01/05/2025 9:02 AM Armida Lin * Date of PT Session Question Answer Date of Assessment Author Next PT Re-Assessment Date [id number] 01/16/2025 11: 29 AM Luis Astorga PT Initials 01/16/2025 11:29 AM Luis Astorga Date of PT Session [id number] 01/16/2025 11:29 AM Luis Burgos * Pneumococcal Vaccine Screen - Year Round [...] drink first t edgardo in the morning (EYE-KST OPERATOR) to steady your nerves or to [...] of Assessment Author 86.23 01/02/2025 7:48 PM EST Allison Rosenbaum, DEMETRIA * IBW in lb (Bariatric) Answer Date of Assessment Author 190.1 01/02/2025 7:48 PM Allison Mix RN * Weight Change Since Last Visit Answer Date of Assessment Author 1.6 01/16/2025 6:10 AM EST Medel, Dynasty K, MANAGER FIRE * Difference in Weight Since Last Visit Answer Date of Assessment Author 1.6 01/16/2025 6:10 AM EST Medel, Dynasty K, MANAGER FIRE * Pain Type Answer Date of Assessment Author Acute pain 01/15/2025 6:33 AM EST Mirtha Miranda RN * Temp (in Celsius) for [place] IV Answer Date of Assessment Author 36.6 01/16/2025 12:02 PM EST Marlene Kimbrough S MANAGER FIRE * Pain Assessment Question Answer Date of [...] assume pain is decreased 01/10/2025 11:26 PM Marvin Jones RN Clinical Progression Not changed 01/15/2025 8:25 AM Marshall Pineda Pain Score 0 01/16/2025 8:00 AM Armida Parish RN Unable to Self-Report Pain Reason Patient chemically sedated 01/03/2025 4:00 PM EST Elyssa Augustin Pain Assessment 0-10 (Adult DVPRS/Pe ds 0-10) 01/16/2025 8:00 AM Armida Parish, RN * Reflexes Question Answer Date of Assessment Author Cough Reflex Present 01/16/2025 12:00 PM Armida Hernandez RN Gag Present 01/16/2025 12:00 PM Armida Hernandez RN * Time-Out Question Answer Date of Assessment Author Pre-Meds Ordered/Given Not applicable 2025 5:00 AM Daylin Jones RN Name of Provider Performing Procedure IrenenRN 2025 5:00 AM Daylin Jones R N [...] Boost Glucose Control 01/14/2025 8:00 AM EST Mussler, Bree K, RN Diet Type Regular;Low potassium;Other (Comment) 01/16/2025 12:00 PM Armida Parish RN Feeding Able to feed self 01/16/2025 12:00 PM Armida Parish RN Appetite Fair 01/16/2025 12:00 PM Armida Hernandez RN * 4-Eyes Skin Assessment Question Answer [...] Facial Expression 0 01/03/2025 4:00 PM EST Elyssa Augustin Body Movements 0 01/03/2025 4:[address] Elyssa Complicance with the Ventila tor (Intubated Patients) 0 01/03/2025 4:00 PM EST Blade Augustinin Muscle Tension 0 01/03/2025 4:[address], Elyssa Critical-Care Pain Observation Score 0 12/14 4:00 PM EST CharliBladein * Sedation Scales Question Answer Date of [...] Author Urine 100 01/15/2025 6:33 AM GISELE Ulises Mirtha edwardsDEMETRIA Urine Color Unable to assess 01/16/2025 5:15 [...] No 01/16/2025 12:00 PM Armida Flynn RN Island Stool Assessment [place] 01/13/2025 6:00 AM Andreina Ireland RN * Fall Risk Calculated Score Answer Date of Assessment Author Silva Low 01/16/2025 12:00 PM Eulogio Parish RN * [...] 01/02/2025 3:56 PM Bri Vasquez RN * Juanpablo Coma Scale Numeric Answer Date of Assessment [...] (cm H2O) 9 01/03/2025 3:01 PM EST Blaine Vasquez Insp Time (sec) 0.9 01/03/2025 3:01 PM EST Me sserBlaine Insp Rise Time (%) 15 01/03/2025 3:01 PM Blaine Sinha I:E Ratio 1:3.13 01/03/2025 3:01 PM Blaine James Minute Ventilation Total 9.2 01/03/2025 3:01 PM EST Blaine Alexis Heater Water Checked 01/03/2025 3:01 PM EST Blaine Vasquez Circuit Compliance On/Off On 01/03/2025 3:01 PM EST Blaine Alexis Trigger Sensitivity Flow (L/min) 1.01 01/04/20 25 3:01 PM EST Blaine Alexis Humidification Heat 01/03/2025 3:01 PM EST Lucille mercedes Blaine Heater Temperature 98.6 01/03/2025 3:01 PM EST Blaine Alexis * Communication Support Strategies Answer Date of [...] Saturation 2 01/13/2025 4:30 PM EST Manjula Satnley RN Modified Mickey Score 14 01/13/2025 4:30 PM EST Manjula Stanley RN Pain 2 01/13/2025 4:30 PM EST Nirmala Stanley RN Emetic Symptoms 2 01/13/2025 4:30 PM Manjula James RN * Hourly Rounding Question Answer Date of Assessment Author Call Light Call light present a nd within reach 01/07/2025 8:00 PM Zachery Conn, DEMETRIA Rest/ Sleep Awake 01/07/2025 8:00 PM Zachery Conn RN * Standardized Assessments Question Answer Date of Assessment Author Standardized Assessments [facility] 6-Clicks Mobility Assessment 01/05/2025 9:40 AM EST Elyssa Healy * [facility] 6-Click Daily Activities Question Answer Date of Assessment Author Help from Other: Don/Doff Re gular Lower Body Clothings 2 01/08/2025 1:00 PM EST Topher Nadira Help From Other: Bathing 2 01/08/2025 1:00 PM EST Topher, Nadira Help From Other: Toileting 2 01/08/2025 1:0 0 PM EST Topher Nadira Help From Other: Don/Doff Up per Body Clothings 3 01/08/2025 1:00 PM EST Topher, Nadira Help From Other: Grooming 3 01/08/2025 1:00 PM EST Topher Nadira Help From Other: Eating Meals 3 01/08/2025 1:00 PM EST Topher, Nadira [facility] 6 Click - Daily Activities Score 15 1:00 PM EST Topher Nadira * Bailee Index Question Answer Date of Assessment Author Feeding 10 01/13/2025 12:51 PM EST Armida Levin Bathing 0 01/13/2025 12:51 PM EST Armida Levin Grooming 5 01/13/2025 12:51 PM EST Armida Levin Dressing 5 01/13/2025 12:51 PM EST Armida Levin Bowels 10 01/13/2025 12:51 PM EST Armida Levin Bladder 10 01/13/2025 12:51 PM EST Armida Levin Toilet Use 5 01/13/2025 12:51 PM EST Armida Levin Transfers (Bed to Chair and Back) 10 025 12:51 PM Armida Holcomb Mobility (on Level Surfaces) 10 01/13/2025 1 2:51 PM Armida Holcomb Stairs 5 01/13/2025 12:51 PM Armida Solis Total Score 70 01/13/2025 12:51 PM Armida Solis * Standardized Tests Question Answer Date of Assessment Author Standardized Tests Bailee Index 01/13/2025 12:51 PM E Armida Anton * Danyel/Dustin Scale Question Answer Date of [...] Assessment Author Manual Muscle Testing - RUE WFL 01/05/2025 9: 02 AM Armida Jean Baptiste * Manual Muscle Testing - LUE Question Answer Date of Assessment Author Manual Muscle Testing - LUE WF 01/05/2025 9: 02 AM Armida Jean Baptiste [...] your Name? Correct 01/04/2025 6:[address] RN Where are You Right Now? Correct [...] Family/Caregiver Spouse 01/16/2025 11:29 AM Luis Astorga Dough Mixer Operator N/A 01/13/2025 11:06 AM Diego Kimball Family/Caregiver [...] 01/16/2025 1:09 PM Gabriela Aly RN * [facility] 6-Clicks Mobility Assessment Question Answer Date [...] railing? 3 01/13/2025 11:06 AM Nazia Oates [facility] 6-Clicks Mobility Asse ssment Total 18 [...] Luis Astorga Therapeutic Activity Time Entry 14 5 11:29 AM Luis Astorga * OT Therapeutic Procedures Time Entry Question Answer Date of Assessment Author Therapeutic Exercise Time Entry 11 5 12:51 PM Armida Holcomb * CLAUDIA Question Answer Date of Assessment Author HEENT (WDL) X 01/16/2025 12:00 PM EST Chintan sArmida S, RN R Eye Sclera yellow 01/16/2025 12:00 PM EST Anay msArmida S, RN L Eye Sclera yellow 01/16/2025 12:00 PM EST Anay msArmida S, RN R Ear Intact 01/15/2025 8:00 PM EST Vanda Gabriel L Ear Intact 01/15/2025 8:00 PM EST Vanda Gabriel Nose Intact 01/16/2025 12:00 PM EST Chintan sArmida S, RN Throat Dry 01/04/2025 4:00 PM EST Tila Vazquez, RN Tongue [place];Moist 01/06/2025 4:00 AM EST Sarah Rivera RN Voice Hoarse 01/07/2025 4:[address] RN Mucous Membrane(s) [place];Moist;Intact 01/07/2025 4:00 P M EST Fariha Hill RN Teeth Missing teeth 01/16/2025 12:00 PM EST Anay tipton, Armida S, RN Head and Face Symmetrical 01/16/2025 12:00 PM EST Armida Cueva ms S, RN Neck Trachea midline 01/15/2025 8:00 PM EST Vanda Reeder Lips Intact 01/15/2025 8:00 PM EST Vanda [...] Author aseptic technique maintained 01/15/2025 8:35 PM EST Allison Rosenbaum, DEMETRIA * Supportive Measures Answer Date of Assessment [...] Assessment Author awakenings minimized 2025 12:46 AM Daylin Cotto RN * Pain Management Interventions Answer Date of Assessment Author medication (see MAR) 01/15/2025 6:33 AM EST Mirtha Story RN * Fluid/Electrolyte Management Answer Date of Assessment Author intravenous fluid replacement initiated 01/13/20 10:23 AM Imelda Calvo RN * Fever Reduction/Comfort Measures Answer Date of Assessment Author lightweight clothing;lightweight bedding 025 8:35 PM Allison Mix RN * Trust [...] Bree Patton RN * Outcome Evaluation Answer Date of Assessment Author pt verbalized understanding of current plan of care 01/14/2025 5:45 PM Bree Patton RN * Medication Review/Management Answer Date of [...] Author Outcome Minimized Risk and Safety met 1:12 PM Rodney Bain RN * Goal: [...] PM Armida Solis Date of OT Session [id number] 01/13/2025 12:51 PM Armida Villarreal * Oxygen Therapy Question Answer Date of Assessment Author O2 Flow Rate (L/min) 2 01/05/2025 9:40 AM Elyssa Herrera * HLM Question Answer Date of Assessment Author [facility] Daily Mobility Score 8 01/16/2025 11 :29 [...] Right Lower Extremity Mild impairment 9:40 AM Elyssa Figueroa * Sensation Question Answer Date of Assessment Author Light Touch: Left Lower Extremity Mild impairment 12/14 9:40 AM EST Short Elyssa * Bed Mobility Interventions Question Answer Date of Assessment Author Bed Mobility Interventions pt recieved a nd left sitting upright in bedside chair 01/13/2025 12:51 PM Armida Holcomb * Bed Mobility Exam: Scooting/Bridging Question Answer Date of Assessment Author Level of Grainger Contact guard 2025 3:00 PM EST Short, Elyssa Physical/Nonphysical Assist Verbal Cues; Minimal cues;Set-up required 2025 3:00 PM EST Short, Elyssa Assistive Device Bed rails 2025 3:00 PM EST S hort, Elyssa * Bed Mobility Exam: Rolling/Turning Question Answer Date of Assessment Author Level of Grainger Minimum assist (75 % patient effort) 2025 3:00 PM EST Short, Elyssa Physical/Nonphysical Assist Verbal Cues; Minimal cues 2025 3:00 PM EST Short, Elyssa Assistive Device Bed rails 2025 3:00 PM EST S hort, Elyssa * Bed Mobility Exam: Supine to Sit Question Answer Date of Assessment Author Level of Grainger Stand-by assist 01/16/2025 1:27 PM EST Tim Elizaldeon Physical/Nonphysical Assist Verbal Cues 01/16/2025 1: 27 PM EST Fide Luis Assistive Device Bed rails 2025 3:00 PM EST S hort, Elyssa * Bed Mobility Exam: Sit to Supine Question Answer Date of Assessment Author Level of Grainger Stand-by assist 01/16/2025 1:27 PM Tim Astorgaon Physical/Nonphysical Assist Verbal Cues 01/16/2025 1: 27 PM EST Tim Elizaldeon * Transfer Exam: Sit to stand Question Answer Date of Assessment Author Level of Grainger Independent 01/16/2025 11:29 AM EST Tim Elizaldeon Physical/Nonphysical Assist Verbal Cues;Nonverbal cues (demo/gestures);1 person + 1 person to manage equipment 01/13/2025 12:51 PM Armida Holcomb Assistive Device Walker, rolling 2025 3:00 PM ES T Short, Elyssa * Transfer Exam: Stand to Sit Question Answer Date of Assessment Author Level of Grainger Independent 01/16/2025 11:29 AM EST Luis Elizalde Physical/Nonphysical Assist Nonverbal cues (demo/gestures);Verbal Cues;1 person + 1 person to manage equipment 01/13/2025 12:51 PM Armida Holcomb Assistive Device Walker, rolling 2025 3:00 PM ES T Short, Elyssa * Transfer Exam: Bed to Chair/Chair to Bed Question Answer Date of Assessment Author Type of Transfer Sidesteps 01/05/2025 9:40 AM EST S hort, Elyssa Level of Grainger Minimum assist (75 % patient's effort) 01/05/2025 [...] 1:07 PM EST Micki Johnson Level of Grainger Minimum assist (75 % patient's effort) 01/08/2025 [...] AND standing 01/13/2025 12:51 PM Armida Holcomb UEulogio Dressing Where Assessed Chair level 01/13 12:51 PM Armida Holcomb Dressing Level of Assistance Modified independent 01/13/2025 [...] of Therapy 2 weeks 01/05/2025 9:40 AM GISELE Healy Elyssa Discharge Recommendation Outpatient PT;H ome with assistance 01/16/2025 1:27 PM Luis Astorga Equipment Recommended Rolling walker 01/16/2025 1:27 P M Luis Astorga Planned PT Interventions Balance trainin g;Bed mobility training;Gait training;Transfer training;Neuromuscular re-education;Postural re-education;Strengthen ing;Functional Mobility;Caregiver training 01/05/2025 9:40 AM Elyssa Figueroa Therapy Frequency 3 - 5 times per week 01/05/2025 9:40 AM EST Elyssa Healy * Gait Training Question Answer Date of [...] Assistance Standby assist 01/16/2025 11:29 AM EST Lius Lee Ambulation Comments Slow speed and sligh tly unsteady but no LOB. Cues for safe direction of RWx. 01/16/2025 11:29 AM EST Luis Elizalde * HLM Score Question Answer Date of Assessment Author ROSALIE HLM Daily Mobility Goal 8 01/15/2025 8:0 [...] BP 137/86 01/16/2025 12:02 PM EST Inte rfaceLennox Flowsheet In Pulse 82 01/16/2025 12:02 PM EST Lennox Pineda Flowsheet In Heart Rate Source Monitor 01/16/2025 3:20 AM EST Allison Rosenbaum RN MAP (mmHg) 103 01/16/2025 12:02 PM EST Lennox Pineda Flowsheet In Patient Position Lying 01/16/2025 6:09 AM Allison Mckeon RN * Oxygen Therapy Question Answer Date of Assessment Author SpO2 95 01/16/2025 12:02 PM EST Lennox Pineda Flowsheet In FiO2 (%) 40 01/03/2025 5:00 PM Elyssa Varela ETCO2 (mmHg) 29 01/03/2025 5:00 PM Elyssa Varela Vent Mode PS/CPAP 01/03/2025 5:00 PM Elyssa Varela Pulse Oximetry Type Intermittent 01/16/2025 3:20 AM Allison Puckett RN Patient Activity During SpO2 Measurement At rest 01/16/2025 3:20 AM Allison Mix RN Oximetry Probe Site Location Left Digit 2025 10:15 AM EST Imelda Lucas RN * Height and Weight Question Answer Date of Assessment Author Height 74.016 01/02/2025 7:48 PM Allison Fan RN * Pain 2 Question Answer Date of Assessment Author Pain Score 2 1 01/15/2025 8:25 AM EST Marshall Hopper * Neurological Question Answer Date of Assessment Author Neuro (WDL) X 01/07/2025 12:50 AM EST Isabel Shepherd RN Neuro Additional Assessments [place] Coma Scale 01/07/2025 12:50 AM EST Isabel Shepherd RN Reflexes Cough;Gag 01/04/2025 4:00 AM EST Eleazar Mac RN * Cardiac Question Answer Date of Assessment Author Ectopy Premature ventricula r contractions 01/06/2025 4:00 AM EST Sarah Montanez RN Ectopy Frequency Rare 01/05/2025 4:00 PM EST Leo Vinson RN * Dyno Technician Question Answer Date of Assessment Author Telemetry Strip Reviewed Yes, I have reviewed and acknowledged. 01/06/2025 8:10 PM EST Isabel Shepherd RN * Pacemaker Question Answer Date of Assessment Author Pacemaker No 01/16/2025 12:00 PM EST Armida Mora RN * Gastrointestinal Question Answer Date of Assessment Author Most Recent BM Date [id number] 01/15/2025 8 :00 PM Allison Mix RN Passing Flatus Yes 01/16/2025 12:00 PM Armida Parish RN Abdominal Tenderness Soft;Tenderness 01/16/2025 12:00 PM Armida Parish RN Bowel Sounds (All Quadrants) Present 01/16/2025 12:00 PM Armida Parish RN Anus/Rectum Evaluation and Tone Unable to assess 01/16/2025 4:22 AM Allison Mix RN Gastrointestinal (WDL) X 12:00 PM Armida [...] 12:00 PM EST Armida Oscar RN * RUE Neurovascular Assessment Question Answer Date of Assessment Author RUE Capillary Refill Less than/equal to 2 seconds 01/16/2025 12:00 PM EST Armida Oscar RN R Radial Pulse +2 01/16/2025 12:00 [...] RN RLE Full movement;Swelling 01/16/2025 12:00 PM EST Armida Oscar RN LUE Full movement 01/16/2025 12:00 PM EST Armida Oscar RN LLE Full movement;Swelling 01/16/2025 12:00 PM [...] RN Psychosocial (WDL) WDL 01/16/2025 12:00 PM ES T Armida Oscar RN Psychosocial Additional Assessments No 01/16/2025 12:00 PM Armida Parish, Merry N Ability to Express Feelings Able to [...] Months 0 01/16/2025 12:00 PM Armida Parish, R N Secondary Diagnosis 15 01/16/2025 12:00 PM Armida Quiñones RN Ambulatory Aid 0 01/16/2025 12:00 PM Armida Farrell ams, RN Intravenous Therapy/Heparin Lock 20 01/17/20 25 12:00 PM Armida Parish RN Gait/Transferring 0 01/16/2025 12:00 PM Armida Parish RN Mental Status 0 01/16/2025 12:00 PM EST Anay msArmida RN Silva Fall Risk Score 35 01/16/2025 [...] of Assessment Author 2.26 01/16/2025 6:10 AM Elver Brandt CNA * BMI (Calculated) Answer Date of Assessment Author 27.56 01/16/2025 6:10 AM Elver Brandt CNA * Pain Location Answer Date of Assessment Author Abdomen 01/15/2025 6:33 AM Mirtha Bright RN * Cardiac Question Answer Date of Assessment Author Commercial Sales Director On No 01/16/2025 12:00 PM Armida Parish RN Telemetry Audible No 01/09/2025 4:00 AM Daylin Jones RN Telemetry Alarms Set No 01/09/2025 4:00 AM Daylin Elder RN Telemetry Box Number [id number] 01/08/2025 8:00 AM Rosibel Mojica Cardiac (WDL) WDL 01/16/2025 12:00 PM EST Armida Cueva ms, RN Pacemaker No 01/16/2025 12:00 PM Armida Hernandez RN Cardiac Regularity Regular 01/16/2025 12:00 PM Armida Flynn RN Heart Sounds S1, S2 01/16/2025 12:00 PM Armida Hernandez RN Telemetry/Dyno Technician No 01/16/2025 12:0 0 PM Armida Parish [...] 4:00 AM EST Shaka Ashraf RN Respiratory ([facility]) X 01/16/2025 12: 00 PM Armdia Parish RN Respiratory Additional Assessments No 01/16/2025 12:00 PM Armida Parish RN Respiratory Effort Unlabored 01/16/2025 12 :00 PM Armida Parish RN Respiratory Depth/Rhythm Regular 01/16/2025 12:00 PM Armida Parish RN * RLE ROM Assessment Question Answer Date of Assessment Author RLE Assessment [facility] 01/05/2025 9:40 AM EST Elyssa Azul * LLE ROM Assessment Question Answer Date of Assessment Author LLE Assessment [facility] 01/05/2025 9:40 AM Elyssa Haskins * Vitals Question Answer Date of Assessment Author Temp 97.9 01/16/2025 12:02 PM EST Gree n, Shonda S, MANAGER FIRE Temp src Oral 01/16/2025 12:02 PM EST Gree n, Shonda S, MANAGER FIRE Resp 18 01/16/2025 12:02 PM EST Gree n, Shonda S, MANAGER FIRE Weight 3435.65 01/16/2025 6:10 AM EST Thorn ton, Dynasty K, MANAGER FIRE BP Location Left arm 01/16/2025 12:02 PM EST Gree n, Shonda S, MANAGER FIRE BP Method Automatic 01/16/2025 12:02 PM EST Gree n, Shonda S, MANAGER FIRE Oxygen Therapy None 01/16/2025 12:02 PM EST Gr een, Shonda S, MANAGER FIRE * Point of Care Tests Question Answer [...] 3:56 PM Akilah Vasquez RN Food allergy, Worship, or Cultural nutrition needs No 01/02/2025 3:56 [...] Arterial Line BP 183/90 01/05/2025 9:00 AM Loe Lopez RN PPV 3 01/03/2025 4:00 PM [...] RN Speech Clear 01/16/2025 12:00 PM Armida Parish, RN L Pupil Reaction Brisk 01/15/2025 8:00 PM EST Vanda Gabriel L Pupil Size (mm) 3 01/15/2025 8:0 0 PM EST Vanda Gabriel R Pupil Reaction Brisk 01/15/2025 8:00 PM EST Vanda Gabriel R Pupil Size (mm) 3 01/15/2025 8:0 0 PM EST Vanda Gabriel LUE Motor Response Responds to commands 01/17/20 25 12:00 PM Armida Parish, RN LLE Motor Response Responds to commands 01/17/20 25 12:00 PM Armida Parish RN RUE Motor Response Responds to commands 01/17/20 25 12:00 PM Armida Parish RN RLE Motor Response Responds to commands 01/17/20 25 12:00 PM Armida Parish RN Neuro (WDL) X 01/16/2025 12:00 PM Armida Parish, RN Swallow Able to swallow toño ds and liquids without difficulty 01/16/2025 12:00 PM Armida Parish RN CIWA Alcohol Withdrawal Assessment No 01/16/2025 12:00 PM Armida Parish, RN R Hand Grasp Moderate 01/16/2025 12:00 PM Armida Parish, RN L Hand Grasp Moderate 01/16/2025 12:00 PM Armida Parish, RN R Foot Dorsiflexion Moderate 01/16/2025 1 2:00 PM Armida Parish, RN L Foot Dorsiflexion Moderate 01/16/2025 1 2:00 PM Armida Parish, RN R Foot Plantar Flexion Moderate 12:00 PM Armida Parish S, RN L Foot Plantar Flexion Moderate 12:00 PM Armida Parish, RN R Pupil Shape Round 01/15/2025 8:00 [...] 01/05/2025 9:02 AM Armida Jean Baptiste Mobility Grainger Independent gait without device 01/05/2025 9:02 AM [...] Question Answer Date of Assessment Author RUE Assessment [facility] 01/05/2025 9:02 AM Armida Rosales * LUE ROM Assessment Question Answer Date of Assessment Author LUE Assessment [facility] 01/05/2025 9:02 AM Armida Rosales * [...] RN Chair Exit System Activate Status No 8:39 PM Vanda Samuels * Fall Risk [...] Equipment On:;abdominal binder 01/07/2025 8:00 AM Fariha Mckinley RN Abdominal Binder Remains in place 01/07/2025 8:00 PM Zachery Whitten RN Abdominal Binder Care Skin assessed 01/07/2025 8:00 PM Zachery Conn RN * Safety Equipment at Bedside Question Answer Date of Assessment Author Standard Bedside Safety Ambu bags in hallway;Oxygen available and working;Suction available, setup and working 01/16/2025 12:00 PM Armida Parish, RN Additional Bedside Safety Bed in locked and low position;Clutter free environment 01/16/2025 12:00 PM Armida Parish, RN * Pain 4 Question Answer Date [...] 6 01/15/2025 8:25 AM Marshall Noriega * Consults Question Answer Date of Assessment [...] PT Evaluation Needed 2 01/02/2025 3:56 PM Jolene Perez RN OT Evaluation Needed 2 01/02/2025 3:56 PM Jolene Perez RN ALMOND HULLER Evaluation Needed 2 01/02/2025 3:56 PM Jolene Vasquez RN * Assistive Devices Question Answer Date of Assessment Author Assistive Devices None 01/02/2025 3:56 PM Jolene Vasquez RN * Provider Notification Question Answer Date of Assessment Author Response See orders 01/10/2025 8:15 AM EST Rosibel Delvalle Notification Time [id number] 01/10/2025 6:08 AM EST Anay Rodriguez RN * Alarm Limits Question Answer Date of Assessment Author HR Alarm Limit Low 50 01/06/2025 8:10 PM Isabel Guallpa RN HR Alarm Limit High 120 01/06/2025 8:10 PM Isabel Staples RN RR Alarm Limit Low 8 01/06/2025 8:10 PM EST Joao, Isabel E, RN RR Alarm Limit High 30 01/06/2025 8:10 PM ES T Isabel Shepherd, RN Apnea Alarm Delay 20 01/06/2025 8:10 [...] Espana RN 01/16/2025 8:0 0 AM Armida Parish, RN Shift Report Given To Armida Oscar [...] Hearn RN * Oxygen Therapy Question Answer Date [...] (Calculated) 29.9 01/02/2025 3:56 P M Jolene Vasquez, RN * Feeding Question Answer Date of Assessment Author Feeding Interventions pt lorenzo function al strength and dexterity needed for [...] Date of Assessment Author Grooming Interventions pt chris's functio nal strength, endurance/activity tolerance, and balance needed for simple grooming task completion standing at sink with CGA using RW 01/13/2025 12:51 PM Armida Holcomb Grooming Where Assessed Standing sinkside 2024 12:51 PM Armida Holcomb Grooming Level of Assistance Setup;Contact guard 01/13/2025 12:51 PM Armida Holcomb * Bathing Question Answer Date of Assessment Author UEulogio Bathing Level of Assistance Moderate assistance 01/05/2025 9:02 AM Armida Jean Baptiste Bathing Level of Assistance Maximum assistance 01/05/2025 9:02 AM Armida Jean Baptiste * Stairs Question Answer Date of Assessment Author Assistance Contact guard 01/13/2025 11:06 AM Diego Retana Rails Single 01/13/2025 11:06 AM Diego Kimball Device No device 01/13/2025 11:06 AM Diego [...] Date of Assessment Author Next OT Reassessment [id number] 01/05/2025 9:44 AM Armida Munguia Patient/Family Goals [...] Home Living Comments Patient had been to [facility] in September, and was still receiving outpatient PT. 01/05/2025 9:02 AM Armida Jean Baptiste Home Layout One level;Stairs to enter without rails 01/05/2025 9:02 AM Armida Jean Baptiste Home Adaptive Equipment Rollator 01/05/2025 9:02 A Armida Layne Lives With Spouse 01/05/2025 9:02 AM Armida Lin * Date of PT Session Question Answer Date of Assessment Author Next PT Re-Assessment Date 16915 01/16/2025 11: 29 AM Luis Astorga PT Initials 01/16/2025 11:29 AM Luis Astorga Date of PT Session [id number] 01/16/2025 11:29 AM Luis Burgos * Calculated C-SSRS Risk Score (Lifetime/Recent) Answer Date of Assessment Author No Risk Indicated 01/16/2025 12:00 PM Armida Parish RN * [place] Coma Scale Question Answer Date of Assessment Author Best Eye Response Spontaneous 01/16/2025 12:00 PM Armida Parish RN Best Verbal Response Oriented 01/16/2025 12:00 PM Armida Parish RN Best Motor Response Follows commands 01/16/2025 12:00 PM Armida Parish RN [place] Coma Scale Score 15 01/16/2025 12:00 PM EST Armida Oscar RN * Physical Activity Question Answer Date of Assessment Author On average, how many days pe r week do you engage in moderate to strenuous exercise (like a brisk walk)? 2 days 01/02/2025 12:41 PM EST Mariela Kwon RN On average, how many minutes do [...] on Daily Activities adls 01/11/2025 8:22 AM Rosibel Guillen Patient is asleep Yes, assume pain is decreased 01/10/2025 11:26 PM Marvin Jones RN Clinical Progression Not changed 01/15/2025 8:25 [...] done independently per patient 01/16/2025 12:00 PM EST Armida Oscar RN * Incentive Spirometry Question Answer Date [...] Author Negative 01/16/2025 12:00 PM EST Eulogio Oscar RN * Overall CAM-ICU/PCAM-ICU Answer Date of Assessment Author Negative 01/13/2025 12:51 PM Armida Holcomb * Critical-Care Pain Observation Tool Question Answer Date of Assessment Author Facial Expression 0 01/03/2025 4:00 PM EST Charli Elyssa Body Movements 0 01/03/2025 4:[address], Elyssa Complicance with the Ventila tor (Intubated Patients) 0 01/03/2025 4:00 PM EST Charli, Elyssa Muscle Tension 0 01/03/2025 4:[address], Elyssa Critical-Care Pain Observation Score 0 12/14 4:00 PM EST Charli Elyssa * Sedation Scales Question Answer Date [...] Occurrence (hourly total) 1 01/13/2025 6:00 AM EST Candie Hester RN Stool Color Brown 01/13/2025 6:00 AM Andreina Aguillon RN Stool Amount Small 01/13/2025 6:00 AM Andreina Aguillon RN Stool Appearance Soft 01/13/2025 6:00 AM Andreina Berumen RN Bowel Incontinence No 01/16/2025 12:00 PM Armida Flynn RN Island Stool Assessment [place] 01/13/2025 6:00 AM Andreina [...] Answer Date of Assessment Author Standardized Assessments [facility] 6-Clicks Mobility Assessment 01/05/2025 9:40 AM EST Elyssa Healy * [employer] 6-Click Daily Activities Question Answer Date of Assessment Author Help from Other: Don/Doff Re gular Lower Body Clothings 2 01/08/2025 1:00 PM EST Topher Nadira Help From Other: Bathing 2 01/08/2025 1:00 PM EST Topher Nadira Help From Other: Toileting 2 01/08/2025 1:0 0 PM EST Topher Nadira Help From Other: Don/Doff Up per Body Clothings 3 01/08/2025 1:00 PM EST Topher Nadira Help From Other: Grooming 3 01/08/2025 1:00 PM EST Topher Nadira Help From Other: Eating Meals 3 01/08/2025 1:00 PM EST Topher Nadira [facility] 6 Click - Daily Activities Score 15 1:00 PM EST Topher Nadira * Bailee Index Question Answer Date of Assessment Author Feeding 10 01/13/2025 12:51 PM EST Armida Levin Bathing 0 01/13/2025 12:51 PM Armida Solis Grooming 5 01/13/2025 12:51 PM Armida Solis Dressing 5 01/13/2025 12:51 PM Armida Solis Bowels 10 01/13/2025 12:51 PM Armida Solis [...] Date of Assessment Author Manual Muscle Testing [facility] 01/05/2025 9:40 AM Elyssa Figueroa * Manual Muscle Testing - RUE Question Answer Date of Assessment Author Manual Muscle Testing - RUE L 01/05/2025 9: 02 AM Armida Jean Baptiste * Manual Muscle Testing - LUE Question Answer Date of Assessment Author Manual Muscle Testing - LUE [facility] 01/05/2025 9: 02 AM Armida Jean Baptiste * Participants in Care Question Answer Date of Assessment Author Family/Caregiver Spouse 01/16/2025 11:29 AM Luis Astorga Dough Mixer Operator N/A 01/13/2025 11:06 AM Diego Kimball Family/Caregiver [...] Clinical Decision Making High 025 9:02 AM Armida Jean Baptiste Overall Eval complexity Complex 01/06/20 25 9:02 AM Armida Jean Baptiste Evaluation/Treatment Tolerance [...] 1 Month) No 12:00 PM Armida Parish, RN 2. Non-Specific Active Suici joceline Thoughts (Past 1 Month) No 01/16/2025 12:00 PM Armida Parish, RN 6. Suicidal Behavior (Lifetime) No 12:00 PM Armida Parish, RN * Deferred Question Answer Date of Assessment Author Unable to assess No 01/02/2025 3:56 PM Jolene Moreno, DEMETRIA * Discharge Planning Continued Question Answer Date of Assessment Author Transportation Home at Discharge Family/Friend will Provide 01/16/2025 1:09 PM Gabriela Aly RN * [facility] 6-Clicks Mobility Assessment Question Answer Date [...] railing? 3 01/13/2025 11:06 AM Nazia Oates [facility] 6-Clicks Mobility Asse ssment Total 18 01/13/2025 11:06 AM Nazia Oates documented as of this encounter Mental Status * Other Answer Entry Date Author 250 01/14/2025 6:30 AM EST Mirtha Miranda RN * Pre-op Phone Call Discharge Planning Question Answer Entry Date Author Patient expects to be discharged to: inpatient 2025 10:23 AM EST Imelda Lucas RN * Time Calculation Question Answer Entry Date Author Start Time [id number] 01/16/2025 11:29 AM EST Luis Elizalde Stop Time [id number] 01/16/2025 11:29 AM EST Luis Elizalde Time Calculation (min) 24 01/16/2025 11:29 A M EST Luis Elizalde * OT Therapeutic Procedures Time Entry Question Answer Entry Date Author Self Care/Home Management (A DLs) Time Entry 30 01/13/2025 12:51 PM EST Armida Garsia * HEENT Question Answer Entry Date Author CLAUDIA (PATTYL) X 01/16/2025 12:00 PM EST Armida Mora RN R Eye Sclera yellow 01/16/2025 12:00 PM EST Armida Cueva ms, RN L Eye Sclera yellow 01/16/2025 12:00 PM EST Armida Cueva ms RN R Ear Intact 01/15/2025 8:00 PM EST Vanda Gabriel L Ear Intact 01/15/2025 8:00 PM EST Vanda Gabriel Nose Intact 01/16/2025 12:00 PM EST Armida Mora RN Throat Dry 01/04/2025 4:00 PM EST Tila Vazquez, RN Tongue French Camp;Moist 01/06/2025 4:00 AM EST Sarah Rivera RN Voice Hoarse 01/07/2025 4:[address] RN Mucous Membrane(s) [place];Moist;Intact 01/07/2025 4:00 P M EST Fariha Hill RN Teeth Missing teeth 01/16/2025 12:00 PM EST Armida Cueva ms RN Head and Face Symmetrical 01/16/2025 12:00 PM EST Armida Cueva ms RN Neck Trachea midline 01/15/2025 8:00 PM EST Vanda Reeder Lips Intact 01/15/2025 8:00 PM EST Vanda Gabriel * Presentation Question Answer Entry Date Author Lines and Tubes Intravenous access 01/16/2025 11 :29 AM Luis Astorga Pre-Session Comments RN agreeable to session. 11:29 AM Luis Astorga Post-Session Comments Patient positioned for comfort with all needs in reach. at bedside. 01/16/2025 11:29 AM Luis Astorga * BMI (Calculated) Answer Entry Date Author 27.6 01/16/2025 6:10 AM EST Medel, Dynasty K, MANAGER FIRE * Total Weight Change Percent Answer Entry Date Author 2222 01/16/2025 6:10 AM EST Medel, Dynasty K, MANAGER FIRE * Weight Change Since Preop Answer Entry Date Author 97.38 01/16/2025 6:10 AM EST Medel, Dynasty K, MANAGER FIRE * Initial Excess Weight Answer Entry Date Author -86.23 01/02/2025 7:48 PM Allison Mix RN * IBW in lbs (Bariatric) Answer Entry Date Author 190.1 01/02/2025 7:48 PM Allison Mix RN * Weight Change Since Last Visit Answer Entry Date Author 1.6 01/16/2025 6:10 AM EST Medel, Dynasty K, MANAGER FIRE * IBW in kg (Bariatric) Answer Entry [...] Warming Applied No 2025 10: 22 AM Imelda Calvo RN * Intraprocedure Normothermia Interventions Question Answer [...] Answer Entry Date Author lightweight clothing;lightweight bedding 025 8:35 PM Allison Mix RN * Trust [...] room provided 01/14/2025 7:52 PM Bree Patton , DEMETRIA * Outcome Evaluation Answer Entry Date Author pt verbalized understanding of current plan of care 01/14/2025 5:45 PM Bree Patton, RN * Medication Review/Management Answer Entry Date [...] RN * Goal: Physiologic Homeostasis Question Answer Entry Date Author Outcome Physiologic Homeostasis met 1:12 PM Rodney Bain RN * Weight Change 24 hrs Answer Entry Date Author 1.6 01/16/2025 6:10 AM EST Elver Medel MANAGER FIRE * Facility NPI Question Answer Entry Date [...] * JHHLM Question Answer Entry Date Author ROSALIE HLM Daily Mobility Score 8 01/16/2025 11 :29 AM EST Luis Elizalde * Cognition Question Answer Entry Date Author Deficit Awareness Fully aware of deficits 2024 12:51 PM EST Armida Garsia Mood/Behavior Alert;Distractible;I mpulsiv e 01/13/2025 12:51 PM EST Armida Garsia Cognitive Skill Development Intervention Pt mildly distractable and intermittently benefited from modified command following and/or visual fedback (modeling) to support multi-step instruction. 01/08/2025 11:42 AM EST Nadira Obando Overall Cognitive Status WFL 025 12:51 PM [...] Multi-Step Commands Consistently 01/13/2025 1 2:51 PM EST Armida Garsia * PT Assessment Question Answer Entry Date [...] HLM Score Question Answer Entry Date Author [facility] Daily Mobility Goal 8 01/15/2025 8:0 0 PM EST Allison Rosenbaum, RN * Plan of Care Reviewed With Answer Entry Date Author patient 01/16/2025 9:36 AM Nimisha Parish ma, RN * Pressure Injury Prevention (PIP) Interventions Question Answer Entry Date Author Pressure Reducing Devices Pillow 2024 12:00 PM Armida Parish RN Preventative Foam Dressing Location Coccyx 01/07/2025 8:00 PM Zachery Conn RN Preventative Foam Dressing Intervention Applied 01/06/2025 8:00 AM Galileo Fuller RN Bed Type Acute Care Bed 01/16/2025 12:00 PM Armida Parish RN * Vital Signs Question Answer Entry Date Author BP 137/86 01/16/2025 12:02 PM EST Lennox Pineda Flowsheet In Pulse 82 01/16/2025 12:02 PM EST Lennox Pineda Flowsheet In Heart Rate Source Monitor 01/16/2025 3:20 AM Allison Mix RN MAP (mmHg) 103 01/16/2025 12:02 PM Lennox Pham Flowsheet In Patient Position Lying 01/16/2025 6:09 AM Allison Mckeon RN * Oxygen Therapy Question Answer Entry Date Author SpO2 95 01/16/2025 12:02 PM GISELE InterfaceLennox Flowsheet In FiO2 (%) 40 01/03/2025 5:00 PM Elyssa Landa ETCO2 (mmHg) 29 01/03/2025 5:00 PM Elyssa Landa Vent Mode PS/CPAP 01/03/2025 5:00 PM Elysas Landa Pulse Oximetry Type Intermittent 01/16/2025 3 :20 [...] Author CVP (mean) 13 01/04/2025 6:00 AM Eleazar Tang RN PAP (Mean) 25 01/04/2025 6:00 AM EST Eleazar Mac RN PAP /01/04/2025 2:00 AM EST Eleazar Mac RN * Neurological Question Answer Entry Date Author Neuro (WDL) X 01/07/2025 12:50 AM Isabel Guallpa RN Neuro Additional Assessments Juanpablo Coma Scale 01/07/2025 12:50 AM Isabel Guallpa RN Reflexes Cough;Gag 01/04/2025 4:00 AM EST Eleazar Bradford RN * Cardiac Question Answer Entry Date Author Ectopy Premature ventricula r contractions 01/06/2025 4:00 AM EST Sarah Montanez RN Ectopy Frequency Rare 01/05/2025 4:00 PM EST Leo Aguiar RN Cardiac Regularity Regular 01/06/2025 4: 00 PM EST Galileo Abdi RN Cardiac (WDL) X 01/07/2025 12:50 AM Isabel Guallpa RN * Dyno Technician Question Answer Entry Date Author Telemetry Strip Reviewed Yes, I have reviewed and acknowledged. 01/06/2025 8:10 PM Isabel Guallpa RN Bedside Dyno Technician On Yes 01/07/2025 12:50 AM Isabel Guallpa RN Bedside Cardiac Audible Yes 01/08/20 12:50 AM Isabel Guallpa RN Bedside Cardiac Alarms Set Yes 01/07/2025 12:50 AM Isabel Guallpa RN * Pacemaker Question Answer Entry Date Author Pacemaker No 01/16/2025 12:00 PM EST Armida Mora RN * Gastrointestinal Question Answer Entry Date Author Most Recent BM Date 77995 01/15/2025 8 :00 PM EST Allison Rosenbaum [...] Months 0 01/16/2025 12:00 PM Armida Parish, R N Secondary Diagnosis 15 01/16/2025 12:00 PM E Armida Schneider computing systems mechanic Aid 0 01/16/2025 12:00 PM Armida Farrell ams, RN Intravenous Therapy/Heparin Lock 20 01/17/20 25 12:00 PM Armida Parish RN Gait/Transferring 0 01/16/2025 12:00 PM Armida Parish RN Mental Status 0 01/16/2025 12:00 PM Armida Kasper ms, RN Silva Fall Risk Score 35 01/16/2025 12:00 PM Armida Parish RN * Rosendo Scale Question Answer Entry Date Author Sensory Perceptions 4 01/16/2025 12:00 PM E Armida Schneider RN Moisture 4 01/16/2025 12:00 PM Armida [...] 01/16/2025 6:10 AM EST Medel, Dynasty K, MANAGER FIRE * BMI (Calculated) Answer Entry Date Author 27.56 01/16/2025 6:10 AM EST Medel, Dynasty K, MANAGER FIRE * Pain Location Answer Entry Date Author Abdomen 01/15/2025 6:33 AM EST Mirtha Miranda RN * Cardiac Question Answer Entry Date Author Commercial Sales Director On No 01/16/2025 12:00 PM Armida Parish [...] S2 01/16/2025 12:00 PM Armida Hernandez RN Telemetry/Dyno Technician No 01/16/2025 12:0 0 PM Armida Parish RN Jugular Venous Distention (JVD) No 12:00 PM Armida Parish RN Cardiac Symptoms None 01/16/2025 12:00 PM Armida Parish RN * Respiratory Question Answer Entry Date Author Artificial airway present Yes 01/04/2025 4:00 AM EST Eleazar Bradford RN Bilateral Breath Sounds Clear;Diminished 12:00 PM [...] 97.9 01/16/2025 12:02 PM EST Shonda Aguilar SJACKA Temp src Oral 01/16/2025 12:02 PM EST Shonda Aguilar S, MANAGER FIRE Resp 18 01/16/2025 12:02 PM EST Ro nMauriciora S, MANAGER FIRE Weight 3435.65 01/16/2025 6:10 AM EST Nellie mason, Dynasty K, MANAGER FIRE BP Location Left arm 01/16/2025 12:02 PM EST Clotildee n Shonda S, MANAGER FIRE BP Method Automatic 01/16/2025 12:02 PM EST Ro n Shonda S, MANAGER FIRE Weight Method Standing scale 01/16/2025 6:10 AM EST Kameron gee, Fatmataasty K, MANAGER FIRE Oxygen Therapy None 01/16/2025 12:02 PM EST Gr eeShonda barber S, MANAGER FIRE * Propofol Drip Question Answer Entry Date Author Volume (mL) Propofol 0 01/11/2025 6:07 AM Marvin Marcos RN * Point of Care Tests Question Answer Entry Date Author Provider Role Resident 01/10/2025 8:15 AM Rosibel Guillen Blood Glucose Meter 158 01/16/2025 1 2:02 [...] 3:56 PM Akilah Vasquez RN Food allergy, Worship, or Cultural nutrition needs No 01/02/2025 3:56 PM Jung Vasquez RN * Trauma/Abuse Assessment Question Answer Entry Date Author Physical Abuse Denies 01/02/2025 3:56 PM EST Jolene Cardenas RN Verbal Abuse Denies 01/02/2025 3:56 PM EST Jolene Gray RN * Values/Beliefs Question Answer Entry Date [...] Transfers Not applicable 01/16/2025 12:00 PM Armida Parihs RN Fall Bundle Components Personal belongin gs [...] 8:00 PM Mirtha Bright RN Body Position [place] chair;heels elevated;legs elevated;weight shifting 01/16/2025 2:00 PM [...] oral rinse provided;education provided 01/15/2025 8:00 PM Allsion Mix RN Oral Care (Yes/No) Yes 01/15/2025 [...] PT Evaluation Needed 2 01/02/2025 3:56 PM Jolene Perez RN OT Evaluation Needed 2 01/02/2025 3:56 PM E Jolene Ratliff RN ALMOND HULLER Evaluation Needed 2 01/02/2025 3:56 PM Jolene Vasquez RN * Assistive Devices Question Answer Entry Date Author Assistive Devices None 01/02/2025 3:56 PM Jolene Vasquez RN * NPO/Void Status Question Answer Entry Date Author Time of Last Liquid 90402 01/13/2025 3:33 PM Luis Hammond RN Time of Last Void 50043 2025 10:12 AM Imelda Calvo RN Date of Last Liquid 13440 01/13/2025 3:33 PM Luis Hammond RN Date of Last Solid 71504 01/13/2025 3:33 PM Luis Ann RN Time of Last Solid 86169 2025 10:12 AM Imelda Simons RN * Provider Notification Question Answer Entry Date Author Response See orders 01/10/2025 8:15 AM EST Rosibel Delvalle Notification Time 27788 01/10/2025 6:08 AM EST Anay Rodriguez RN [...] Low 90 01/06/2025 8:10 PM E Isabel Lovelace RN SpO2 Alarm Limit High 100 01/06/2025 8:10 PM Isabel Guallpa, RN BP Systolic Alarm Limit Low 90 01/06/2025 8: 10 PM Isabel Guallpa RN BP Systolic Alarm Limit High 170 01/06/2025 8 :10 PM Isabel Guallpa, RN BP Diastolic Alarm Limit Low 50 01/06/2025 8 :00 AM Galileo Fuller RN BP Diastolic Alarm Limit High 90 01/06/2025 8:00 AM Galileo Fuller RN BP Mean Alarm Limit Low 60 01/06/2025 8:10 P M Isabel Guallpa RN BP Mean Alarm Limit High 110 01/06/2025 8:10 PM Isabel Guallpa RN * Transfer of Nursing Care [...] following? None 01/16/2025 12:00 PM Armida Parish, DEMETRIA * Chlorhexidine Screening Question Question Answer Entry Date Author Have you ever had a rash or burn develop after a hospital procedure and/or operation or been told you have an allergy or sensitivity to chlorhexidine or pink pre-surgical soap? No 01/13/2025 3:32 PM Kirk Ann RN * Spiritual Assessment Question Answer Entry [...] Montanez Last Date of Pastoral Care Contact [id number] 01/03/2025 10:00 AM Marybeth Montanez * Mobility Question Answer Entry Date Author Ambulation Stand by;Independent 01/15/2025 8:00 PM Allison Hearn RN * Oxygen Therapy Question Answer Entry Date Author Oximetry Probe Site Changed No 01/13/2025 3: 51 PM Dayna Worthington RN * Restart Vitals Timer Answer Entry Date Author Yes 01/16/2025 12:02 PM Marlene Reveles CNA * Neurological Question Answer Entry Date Author Neuro ([facility]) [facility] 2025 1:12 PM Rodney Bain RN * Cardiac Question Answer Entry Date Author Cardiac ([facility]) [facility] 2025 1:12 PM Rodney Katz RN * Gastrointestinal Question Answer Entry Date Author Gastrointestinal ([facility]) [facility] 2025 1:12 PM Rodney Bain RN [...] Entry Date Author Next PT Re-Assessment Date 16923 01/16/2025 11: 29 AM Luis Astorga PT Initials 01/16/2025 11:29 AM Luis Astorga Date of PT Session [id number] 01/16/2025 11:29 AM Luis Burgos * HARK Concern Calculation Answer Entry Date Author 1 01/02/2025 12:41 PM Calrissa Kumar RN * Alcohol Use Concern Calculation Answer Entry Date Author 1 01/02/2025 12:41 PM Clarissa Kumar RN * Food Insecurity Concern Calculation Answer Entry Date Author 1 01/02/2025 12:41 PM Clarissa Kumar RN * Transportation Needs Concern Calculation Answer Entry Date Author 1 01/02/2025 12:41 PM Clarissa Kumar RN * Housing Stability Concern Calculation Answer Entry Date Author 1 01/02/2025 12:41 PM Clarissa Kumar RN * Utilities Concern Calculation Answer Entry Date Author 1 01/02/2025 12:41 PM Clarissa Kumar RN * Calculated C-SSRS Risk Score (Lifetime/Recent) Answer Entry Date Author No Risk Indicated 01/16/2025 12:00 PM Armida Parish RN * Skip to questions 9-10? Answer Entry Date Author 1 01/02/2025 12:41 PM EST DearClarissa RN * Juanpablo Coma Scale Question Answer Entry Date Author [...] drink first t edgardo in the morning (EYE-KST OPERATOR) to steady your nerves or to [...] Entry Date Author 86.23 01/02/2025 7:48 PM EST Allison Rosenbaum RN * IBW in lb (Bariatric) Answer Entry Date Author 190.1 01/02/2025 7:48 PM Allison Mix RN * Weight Change Since Last Visit Answer Entry Date Author 1.6 01/16/2025 6:10 AM EST Medel, Dynasty K, MANAGER FIRE * Difference in Weight Since Last Visit Answer Entry Date Author 1.6 01/16/2025 6:10 AM EST Medel, Dynasty K, MANAGER FIRE * Pain Type Answer Entry Date Author Acute pain 01/15/2025 6:33 AM EST Mirtha Miranda RN * Anthropometrics Question Answer Entry Date Author Weight Change 1.67 01/16/2025 6:10 AM EST Thor nton, Dynasty K, MANAGER FIRE * Temp (in Celsius) for [place] IV Answer Entry Date Author 36.6 01/16/2025 12:02 PM EST Marlene Kimbrough S, MANAGER FIRE * Pain Assessment Question Answer Entry Date Author Pain Orientation Mid 01/14/2025 6:27 AM Mirtha Bright RN Pain Descriptors Aching;Discomfort 01/14/2025 6: 27 AM Mirtha Bright RN Pain Onset Ongoing 01/14/2025 6:27 AM Mirtha Bright RN Pain Frequency Constant/continuous 01/14/2025 6 :27 AM Mirtha Bright RN Patient's Stated Pain Goal No pain 01/15/2025 4:00 AM Mritha Bright RN Effect of Pain on Daily [...] Armida Hernandez RN * Time-Out Question Answer Entry Date Author Pre-Meds Ordered/Given Not applicable 5:00 AM Daylin Jones RN Name of Provider Performing Procedure IrenenRN 2025 5:00 AM Daylin Jones RN Correct [...] Daylin Jones RN Rad Studies Available? No 5:00 AM Daylin Jones RN Lab Results [...] RN Appetite Fair 01/16/2025 12:00 PM Armida Parihs RN * 4-Eyes Skin Assessment Question Answer [...] Method Nasal cannula 01/05/2025 4: 00 PM Leo Brown RN Vent Device Type Servo U 01/03/2025 3:01 PM Merritt Sinhaemy * Norepinephrine Drip Question Answer Entry Date [...] Armida Parish RN Skin Integrity Bruising;Other (Comment) 025 12:00 PM Armida Parish RN Skin Turgor [...] 38.11 01/16/2025 5:32 PM EST Cruz Velez A * Confusion Assessment Method (CAM) Question Answer [...] Date Author Negative 01/16/2025 12:00 PM Eulogio Parish RN * Overall CAM-ICU/PCAM-ICU Answer Entry Date Author Negative 01/13/2025 12:51 PM Armida Holcomb * Critical-Care Pain Observation Tool Question Answer Entry Date Author Target Pain Score Routine (0-2) 01/03/2025 4:00 PM EST Charli, Elyssa Facial Expression 0 01/03/2025 4:00 PM EST Charli, Elyssa Body Movements 0 01/03/2025 4:[address], Elyssa Complicance with the Ventila tor (Intubated Patients) 0 01/03/2025 4:00 PM EST Charli, Elyssa Muscle Tension 0 01/03/2025 4:[address], Elyssa Critical-Care Pain Observati on Score 0 01/03/2025 4:00 PM EST Charli, Elyssa * Sedation Scales Question Answer Entry Date Author [place] Scale (RS): Score 2 01/16/2025 12:00 PM Armida Parish RN Sedation Scale Used [place] Agitation Sedation Scale 01/16/2025 12:00 PM Armida Parish RN RASS 0 01/16/2025 12:00 PM Armida Parish RN Pasero Opioid-Induced Sedation Scale (POSS) 1 01/16/2025 12:00 PM Armida Parish RN * Urine Output/Assessment Question Answer Entry Date Author Urine 100 01/15/2025 6:33 AM EST Mirtha Miranda RN Urine Color Unable to assess 01/16/2025 [...] No 01/16/2025 12:00 PM Armida Flynn RN Island Stool Assessment [place] 01/13/2025 6:00 AM Andreina [...] or Concerns None 06/2024 8:00 AM Armida Parish RN * Able [...] Date [place] [address] 01/16/2025 4:55 PM [address] RD * Deterioration Index Score Question Answer Entry Date Author Deterioration Index Score 31.95 01/16/2025 5:15 PM EST Chronickeyonna, Batchq * Unplanned Readmission Scores Question Answer Entry Date Author Unplanned Readmission Score 38.09 01/16/2025 4: 00 PM EST Bautista, Batchq * F = Family/Partner in Care Engagement [...] Meds to Beds Complete? Yes 5:12 PM EST Jorge Gonzalez CPhT Current Status Prescriptions Delive red - M2B Service Complete 01/16/2025 5:12 PM EST Jorge Gonzalez CPhT Is the patient interested in Medication Bedside Delivery at Discharge? Yes, interested 01/16/2025 9:54 AM EST Imelda Valentin, PharmD * [place] Coma Scale Numeric Answer Entry Date Author 15 01/16/2025 12:00 PM EST Eulogio Oscar, RN * Vent Settings (Invasive or Non Invasive) Question Answer Entry Date Author Resp Rate (Set) 16 01/03/2025 3:01 PM EST Blaine Golden Resp Rate Observed 16 01/03/2025 3:01 PM EST Blaine Alexis Vt (Set, mL) 500 01/03/2025 3:01 PM EST Lauryn rBlaine Vt Exh (ml) 537 01/03/2025 3:01 PM EST Nareshe rBlaine PAP Observed (cm H2O) 18 01/03/2025 3:01 PM EST Blaine Alexis Minute Ventilation Set (L/min) 8 01/03/2025 3:01 PM EST Blaine Alexis PEEP/CPAP Set 5 01/03/2025 3:01 PM EST Mess erBlaine MAP (cm H2O) 9 01/03/2025 3:01 PM EST Lauryn rBlaine Insp Time (sec) 0.9 01/03/2025 3:01 PM EST Me sser, Blaine Insp Rise Time (%) 15 01/03/2025 3:01 PM EST Blaine Alexis I:E Ratio 1:3.13 01/03/2025 3:01 PM EST Lauryn rBlaine Minute Ventilation Total 9.2 01/03/2025 3:01 PM EST Blaine Alexis Heater Water Checked 01/03/2025 3:01 PM EST Blaine Vasquez Circuit Compliance On/Off On 01/03/2025 3:01 PM EST Blaine Alexis Trigger Sensitivity Flow (L/min) 1.01 01/04/20 25 3:01 PM EST Blaine Alexis Humidification Heat 01/03/2025 3:01 PM EST Lucille serBlaine Heater Temperature 98.6 01/03/2025 3:01 PM EST Blaine Alexis * Communication Support Strategies Answer Entry Date Author active listening utilized 2025 12:46 AM Daylin Gil RN * Heel protectors task - custom formula [...] 01/13/2025 4:30 PM Manjula James RN * Respiratory Assessment Question Answer Entry Date Author Respiratory (WDL) WDL 2025 1:12 PM Rodney Bain, DEMETRIA * Integumentary Question Answer Entry Date Author Integumentary (WD) WDL 2025 1:12 PM Rodney Win, DEMETRIA * Modified Mickey Question Answer Entry Date Author Activity 2 01/13/2025 4:30 PM EST [...] Normothermia Interventions Question Answer Entry Date Author [place] Applied No 2025 1:09 PM Rodney Oropeza RN Is the patient normothermic? Yes 2025 1 [...] is Off Stand-by check 01/07/2025 12:07 PM EST Alisha Velez * Communication Question Answer Entry Date Author Floor Staff Notification Method Secure chat 01/07/2025 7:41 PM Kvein Upton CNA Monitoring staff Called Jefferyo r Staff Nurse 01/07/2025 7:41 PM Kevin Upton CNA * Danyel/Dustin Scale Question Answer Entry Date Author Age (years) 2 01/06/2025 8:10 PM Isabel Mendes RN Hemodynamics 4 01/06/2025 8:10 PM Isabel Mendes RN Weight/Tissue Viability 3 01/06/2025 8:10 P M Isabel Guallpa RN Respiration 4 01/06/2025 8:10 PM Isabel Mnedes RN Past Medical History 2 01/06/2025 8:10 [...] following behaviors? No 01/16/2025 12:00 PM Armida Parish, RN Does the patient have a cour t ordered legal guardian? No 01/16/2025 12:00 PM Armida Parish, RN * Participants in Care Question Answer Entry Date Author Dough Mixer Operator N/A 01/13/2025 11:06 AM Diego Kimball * Cognition Question Answer Entry Date Author Orientation Level Oriented X4 01/05/2025 9:02 AM Armida Jean Baptiste B * C-SSRS (Frequent Screener) Question Answer Entry Date Author Is patient awake, alert, and able/willing to answer questions appropriately? Yes 01/16/2025 12:00 PM Armida Parish R N 1. Wish to be (Past 1 Month) No 025 12:00 PM Armida Parish, RN 2. Non-Specific Active Suici joceline Thoughts [...] 01/16/2025 1:09 PM Gabriela Aly RN * [facility] 6-Clicks Mobility Assessment Question Answer Entry [...] (including a wheelchair)? 3 01/13/2025 11:06 AM EST Diego Ross How much help does the patie nt need to walk in hospital room? 3 01/13/2025 11:06 AM Diego Aguirre How much help does the patie nt need climbing 3-5 steps with a railing? 3 01/13/2025 11:06 AM Nazia Oatse [facility] 6-Clicks Mobility Asse ssment Total 18 [...] Take immunosuppression as orderd, including steroid taper. {TXPimmunomeds:34084} Nutrition: - Please drink your boost shakes [...] any ointments or creams at this time. {txpincisionclosure:13705} Bring to your clinic appointments: - please [...] your RN Coordinator, the emergency number is [phone]. This is an answering service, you will ask to speak to the on- call liver guidance services coordinator . - Call for fever of [...] Appointments please call our Transplant Surgery Clinic [phone]. If there are questions or concerns after discharge from the hospital after hours, weekends, and holidays please call [phone] to reach the RN Coordinator instrumentation engineering technician documented in this encounter Medications at Time [...] 2 01/06/2025 ergocalciferol (Vitamin D-2) 1.25 MG (64257 UT) capsule Take 1 capsule by mouth [...] Note Orly Tay 45 y.o. male CSN: [id number] Room/Bed 213/213A Nutrition evaluation type: follow-up Reason [...] drinking Boost between meals. Boost Rx to [facility] for outpatient use. w/ questions from [...] (Room air) O2 Delivery Method: Nasal cannula [place] Coma Scale Score: 15 Rosendo Scale Score: [...] (Calculated): 27.56 Weight Evaluation: Overweight (BMI 25-29.9) [place] Body Weight (kg): 86.4 Percent [place] Body Weight: 112 Adjusted Body Weight (kg): [...] oz) Estimated Needs: Kcal/ K-35 Kcal Provided: 9014-7968 Kcal Needs Based On: Current weight Gm [...] Education Provided: Yes (Post-transplant) Pertinent home medications: Worship needs: Nutrition Focused Physical Exam: Physical exam [...] Note Orly Tay 45 y.o. male CSN: [id number] Admission: 01/02/2025 9:05 AM Primary Problem: Decompensation of cirrhosis of liver (CMS/HCC) Primary Sprinkler Truck Driver: Assistance Available at Discharge: Current Outpatient/Agency/Support Group: clinic(s) Availability of Care Givers (#Hours): 24 hours Family/Sprinkler Truck Driver(s) Willingness Assessed to care for patient at home: Yes Family/Sprinkler Truck Driver(s) Readiness Assessed to care for patient at [...] TBD [facility] 2 [facility] S Endoscopy [phone] [facility] [id number] PT/OT recs: home with 24-hour assistance, outpatient PT/OT, rolling walker Pt reports he will have the assistance of his spouse at home PT to be provided with a script for outpatient PT/OT on day of discharge. Referral for rolling walker sent to [facility], walker delivered to bedside. Transportation: [...] patient: Lower blood pressure ergocalciferol 1.25 MG (62394 UT) capsule Take 1 capsule by mouth [...] Medications: Will plan for patient to utilize [facility] to obtain discharge medications at time of discharge from [facility]. Prescriptions to be provided by [facility] providers. The transplant team will assist [...] allmeds through ; expressed desire to utilize [facility] post-operatively. Ginny Sutton, PharmD Transplant Clinical Pharmacist * Care Plan - [...] Mobility Exam: Supine to Sit Level of Grainger: Stand-by assist Physical/Nonphysical Assist: Verbal Cues Bed Mobility Exam: Sit to Supine Level of Grainger: Stand-by assist Physical/Nonphysical Assist: Verbal Cues Transfers Transfer Exam: Sit to stand Level of [place]inger: Independent Transfer Exam: Stand to Sit Level of Grainger: Independent Ambulation Device: Rolling walker Assistance: Standby [...] Load: No Diplopia: No Falls: No Objective PATIENT SUPPORT ASSOCIATE Screen Cervical Spine ROM: not limited Smooth Pursuit: intact Saccades: intact Spontaneous Nystagmus: No Gaze-Evoked Nystagmus: No Vestibular Occular Reflex Testing VOR Slow: intact Head Thrust: negative bilaterally Gaze Stability: intact Convergence/divergence (near point convergence): intact Positional Testing Left Ree-Hallpike: negative with no provocation of symptoms or nystagmus. Right [place]-Hallpike: negative with no provocation of symptoms or [...] depression, anxiety, GERD, and HTN [facility] to [facility] on 01/02 for liver transplant. [...] allmeds through ; expressed desire to utilize [facility] post-operatively. 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 If orthostatic vitals signs are okay, consider vestibular evaluation with therapy prior to discharge *have reached out to therapists regarding recommendations Thank you for allowing us to participate in the care of your patient. We will continue to follow. Please page [phone] with any questions, or resident on-call if [...] Note Orly Tay 45 y.o. male CSN: [id number] Admission: 01/02/2025 9:05 AM Primary Problem: Decompensation [...] Phone Address 01/16/2025 6:45 AM TRANSPLANT LAB [facility] Arrive at: Transplant Center [phone] [facility] [phone] 01/16/2025 8:00 AM Xuxfjzlntc-Slxff-Flbfcue-Paul [facility] Arrive at: Transplant Center [phone] [facility] [phone] 03/06/2025 TBD [facility] ENDO 2 PAV S Endoscopy [phone] [address] [facility] [phone] PT/OT recs: home with 24-hour assistance, outpatient PT/OT, rolling walker Pt reports he will have the assistance of his spouse at home PT to be provided with a script for outpatient PT/OT on day of discharge. Referral for rolling walker sent to [facility], walker delivered to bedside. Transportation: Pt states she will provide transportation home. CM will continue to follow pt plan of care and discharge needs. Gabriela Kinney RN * Progress Notes - Laura Muñiz LCSW - 01/15/2025 12:04 PM EST Transplant Social Work Discharge - Post-Transplant Identifying Information: Patient Name: Orly Tay Date of : 1980 Social Support System: The primary caregiver is , Ptaricia, who is committed and involved Local Housing Needs and Transportation: Patient and caregiver require temporary housing near the hospital post- discharge: No. Plan in placeto stay at: patient's home in [place]. Transportation to follow-up appointments will be provided by: . Financial Status: Reported household income estimated at below 300% [employer]. Monthly income about $750. Patient reports he has been awarded SSDI, however, final amounts and when first check will arrive is undetermined. Financial concerns noted regarding: transportation. [facility] has approved $100 gas card for transportation.Will [...] patient once it arrives. Laura Muñiz LCSW, [facility] Transplant Dental Financial Coordinator Liver team * Consults - Yari Reilly RD - 01/15/2025 10:33 AM EST Adult Nutrition Evaluation Note Orly Tay 45 y.o. male CSN: [id number] Room/Bed 213/213A Nutrition evaluation type: follow-up Reason [...] drinking Boost between meals. Boost Rx to [facility] for outpatient use. w/ questions from [...] (Room air) O2 Delivery Method: Nasal cannula [place] Coma Scale Score: 15 Rosendo Scale Score: [...] (Calculated): 27.11 Weight Evaluation: Overweight (BMI 25-29.9) Sayre Body Weight (kg): 86.4 Percent Sayre Body Weight: 112 Adjusted Body Weight (kg): [...] oz) Estimated Needs: Kcal/ K-35 Kcal Provided: 2435-4200 Kcal Needs Based On: Current weight Gm [...] Education Provided: Yes (Post-transplant) Pertinent home medications: Worship needs: Nutrition Focused Physical Exam: Physical exam [...] anxiety, GERD, and HTN who presents to [facility] on 01/02 for possible liver [...] results found for: BDVEN , BEVEN , TZE8UEO , PAA2ZDS , PHVEN , PO2VEN , I9RQIERR , JVV4JFTZCCC , PHVENTEMP Lactate: Lactate, Arterial, Whole Blood [...] anxiety, GERD, and HTN who presents to [facility] on 01/02 for possible liver [...] Edited by: Velasquez Odonnell MD at 01/15/2025 5460 Velasquez Odonnell MD PGY-1 General Surgery 01/15/2025 [...] Review Outcome: Ongoing, Progressing Flowsheets (Taken 01/14/2025 260 by Bree Mcfarland, RN) Progress: improving Outcome [...] Outcome: Ongoing, Progressing * Progress Notes - DearMariela RN - 01/14/2025 3:07 PM EST Referral to [facility] for RW for home use. PT/OT [...] anxiety, GERD, and HTN who presents to [facility] on 01/02 for possible liver transplant. 01/03: OLT Interval: POD10. NAEON. MRCP with evidence of biliary stricture. Liver U/S ok. VSS. Hgb and WBC S. Cr mildy uptrending. LFT stable, but Tbili increase 11 from 10.4. Edited by: Estee Rosales at 01/13/2025 0899 Review of Systems: 14-point ROS negative except as above in HPI. Last Recorded Vitals Blood pressure (!) 153/76, pulse 68, temperature 36.6 ??C (97.9 ??F), temperature source Oral, resp. rate 13, height 1.88 m (6' 2.02 ), weight 95.5 kg (210 lb 8.6 oz), SpO2 98%. Output by Drain (mL) 01/12/25 07 - 01/12/25 1859 01/12/25 1900 - 01/13/25 0659 01/13/25 07 - 01/13/25 1859 01/13/25 1900 [...] results found for: BDVEN , BEVEN , QJM4HHO , HND5NZJ , PHVEN , PO2VEN , E2LUSDWG , IJQ0BMXEMBR , PHVENTEMP Lactate: Lactate, Arterial, Whole Blood [...] anxiety, GERD, and HTN who presents to [facility] on 01/02 for possible liver transplant. Now s/p liver transplant on 01/03. Extubated [place]op 01/03 to [place], now on RA. HDS off pressors. Abdominal [...] been discussed with the patient and/or their residential sales representative. All questions answered and they [...] 50,000 Units Oral Weekly Maciel Olson MD 50,000 Units at 01/09/25 0844 escitalopram (Lexapro) [...] Oral Nightly Roger Moody 50 mg at 01/12/252016 ursodiol (Actigall) capsule 300 mg 300 mg [...] walker Additional Comments Patient had been to [facility] in September, and was still receiving outpatient PT. PRIOR LEVEL OF FUNCTION Receives help from Spouse Level of Mobility Ambulatory- household only Mobility Grainger Independent gait without device History of Falls [...] Bed <> Chair since last PT treatment. Dough Mixer Operator (if applicable) Dough Mixer Operator: Not Applicable OBJECTIVE & INTERVENTIONS PAIN Pt [...] chair 1-3x daily and ambulate hallway with technical staff assistant as able, if able. THERAPEUTIC ACTIVITY Treatment Minutes 15 BED MOBILITY Level of Grainger Physical/Non- physical Assist Adaptive Equipment Utilized Rolling/ Turning Scooting/ Bridging Supine to Sit Sit to Supine Interventions pt recieved and left sitting upright in bedside chair TRANSFERS Level of Grainger Physical/Non- physical Assist Adaptive Equipment Utilized Sit [...] Posture: Rounded shoulders, Forward head Level of Grainger Balance Support Interventions Static Sit Supervision Feet [...] to ensure safety. -pt demonstrated ability to cone picker 5 inch item from ground level via squat technique and performing right and left 360 degree turns with CGA. Level of Grainger Distance Adaptive Equipment Utilized Gait Moderate verbal [...] of HEP provided. Access Code: [email or web address] URL: [email or web address] Date: 01/13/2025 Prepared by: Diego West Exercises [...] 3 sets - 10 reps Standardized Assessments [facility] 6-Clicks Mobility Assessment Difficulty patient has [...] 3-5 steps with a railing?: A little [facility] 6-Clicks Mobility Assessment Total : 18 [...] PM. * Progress Notes - Saniya Bond, SHIFTMAN - 01/13/2025 12:10 PM EST Physical Medicine & Rehabilitation Inpatient Consult Followup cc: Decompensation of cirrhosis of liver (CMS/HCC) Subjective: Patient seen and examined. Family at bedside including Discussed ambulation as was increasingy difficult with edema and scrotal swelling which has improved. Discussed readiness for rehab Patient denies any specific concerns or complaints. able to assist at discharge, planning to go back to [facility] when ready Patient and family would like to go to [facility] when ready Therapy notes reviewed: Bed [...] We will continue to follow. Please page [phone] with any questions, or resident on-call if [...] Transfer Exam: Sit to stand Level of Grainger: (SBA with RW, CGA without AD) Physical/Nonphysical Assist: Verbal Cues, Nonverbal cues (demo/gestures), 1 person + 1 person to manage equipment Assistive Device: (trials with and without RW) Transfer Exam: Stand to Sit Level of Grainger: (SBA with RW, CGA without AD) Physical/Nonphysical [...] initially, progresses to CGA using no AD/no IN STORE MARKETER Apparatus: Chair follow Assistance: Contact guard assist, pt requires CGA for head positional changes, functional reaching,weight shifting outside base of support, and directional changes throughout ambulation ~household simulated distances, seated rest breaks provided throughout balance training activities Therapeutic Exercise (11 minutes) 1# weights provided for use with the following ariel UE strengthening HEP issued this date, [employer] Code: [email or web address] URL: [email or web address] Exercises include- Single Arm Shoulder Flexion with [...] Date of : 1980 Clinical Summary: Txp JHON is actively collaborating with the multidisciplinary team [...] post- transplant psychosocial needs Laura Muñiz LCSW, [facility] Transplant Dental Financial Coordinator Liver team * Progress Notes - Gretel [...] anxiety, GERD, and HTN who presents to [facility] on 01/02 for possible liver [...] Gastroenterology and Nutrition PGY-6 GI Fellow Pager: [phone] Prefer Epic Chat [1] amLODIPine, 5 mg, [...] anxiety, GERD, and HTN who presents to [facility] on 01/02 for possible liver [...] results found for: BDVEN , BEVEN , VRF8ABP , GJJ3VBO , PHVEN , PO2VEN , H6IPUZOH , YPB0VOXKPBP , PHVENTEMP Lactate: Lactate, Arterial, Whole Blood [...] anxiety, GERD, and HTN who presents to [facility] on 01/02 for possible liver transplant. Now s/p liver transplant on 01/03. Extubated post-op 01/03 to [place], now on RA. HDS off pressors. Abdominal [...] Estee Rosales at 01/13/2025 0859 Estee Rosales, [1] amLODIPine, 5 mg, Oral, Daily aspirin, [...] MD * Consults - Vanda Maguire APRN, DNP - 01/13/2025 8:14 AM ESTAssociated Order(s): [...] anxiety, GERD, and HTN, who presented to [facility] on 01/02 for liver transplant. [...] is no recent study available for direct tqtr-vy-zasf comparison. Assessment & Plan: Decompensated alcohol related [...] care of this patient. Vanda Maguire APRN, DNP Interventional Radiology [phone] [1] Past Medical History: Diagnosis Date Anxiety [...] Camilla Soto APRN, DNP, 5 mg at 01/12/25 0852 aspirin chewable [...] tablet 1 tablet, 1 tablet, Oral, Daily, Macile Olson MD, 1 tablet at 01/12/25 0852 [...] in Care Family/Caregiver Present: Yes Family/Caregiver: Spouse Dough Mixer Operator: Not Applicable Presentation Oxygen Therapy: None (Room [...] bed. Bed Mobility Exam: Rolling/Turning Level of Grainger: Minimum assist (75% patient effort) Physical/Nonphysical Assist: Verbal Cues, Minimal cues Assistive Device: Bed rails Bed Mobility Exam: Scooting/Bridging Level of Grainger: Contact guard (seated scoot to edge of bed) Physical/Nonphysical Assist: Verbal Cues, Minimal cues, Set-up required Assistive Device: Bed rails Bed Mobility Exam: Supine to Sit Level of Grainger: Minimum assist (75% patient's effort) Physical/Nonphysical Assist: Verbal Cues, Set-up required, Maximal cues, Nonverbal cues (demo/gestures), HOB elevated Assistive Device: Bed rails Bed Mobility Exam: Sit to Supine Level of Grainger: (Not assessed. Patient left up in chair.) Transfers Transfer Interventions: PT provided maximal verbal cues for safe hand placement on RW and sitting surface, pushing up to stand and reaching back to sit, to ensure safe transition. Physical assist provided for balance. Transfer Exam: Sit to stand Level of Grainger: Contact guard Physical/Nonphysical Assist: Verbal Cues, Nonverbal cues (demo/gestures), Additional assist utilized for safety Assistive Device: Walker, rolling Transfer Exam: Stand to Sit Level of Grainger: Contact guard Physical/Nonphysical Assist: Verbal Cues, Nonverbal [...] Kwon RN - 2025 12:47 PM EST infrastructure analyst attended table rounds with MD Beckford and members of Txp team this AM. Plan for ERCP today. Pt not medically cleared for hospital discharge this date. Pt has been referred to [facility] and PM and R is following. [...] Orly Tay Date of : 1980 Room: [address] [place] [address] Reason for consultation: Liver transplant pt with biliary stricture on MRCP Subjective: History of present illness: Mr. Orly Tay is a 44 y.o. year old male with a PMH of decompensated alcohol related cirrhosis s/p OLT, ascites, HE, SBP, depression, anxiety, GERD, and HTN who presents to [facility] on 01/02 for possible liver [...] anxiety, GERD, and HTN who presents to [facility] on 01/02 for possible liver [...] DO Gastroenterology and Hepatology, PGY-4 Healthcare Pager: [phone] [1] Past Medical History: Diagnosis Date Anxiety [...] mg, 10 mg, Rectal, Daily, Tg Morales SHIFTMAN, 10 mg at 01/09/25 0844 buPROPion SR [...] mg, Intravenous, q1h PRN, 10 mg at 01/03/251707 OR hydrALAZINE (Apresoline) injection 20 mg, 20 mg, Intravenous, q1h PRN, Camilla Soto APRN, PATTI, 20 mg at 01/06/25724 hydrOXYzine HCl (Atarax) tablet 10 mg, 10 [...] capsule 500 mg, 500 mg, Oral, BID, Bedinger, Yari P, MD ondansetron (Zofran) injection 4 mg, 4 [...] Yari Quesada MD, 300 mg at 01/11/25 08 valGANciclovir (Valcyte) tablet 450 mg, 450 mg, Oral, Daily, Maciel Olson MD, 450 mg at 01/11/25 08 Cosigned by Parmjit Garcia MD at 2025 7:33 AM EST * Imelda Lynn RN - 2025 10:24 AM EST Images from the original note were not included. [id number] Endoscopy Unit: Caring for Yourself after an [...] will be available in the patient portal, [employer] or you can call the doctor who [...] for the Endoscopy Fellow on-call. * [facility] - Imelda Lucas RN - 2025 10:24 AM EST Images from the original note were not included. [address] Anesthesia: General Anesthesia You?re due to have [...] medicines you take. This includes prescription and cmab-psc-mtcnjir medicines. It also includes vitamins, herbs, and [...] safe. Last Reviewed Date: 2023 00:00:00 ?? 0628-2699 The [employer]. All rights reserved. This information is not intended as a substitute for professional medical care. Always follow your healthcare professional's instructions. * Consults - Yari Reilly, RD - 2025 10:21 AM EST Adult Nutrition Evaluation Note Orly Tay 45 y.o. male CSN: [id number] Room/Bed 213/213A Nutrition evaluation type: follow-up Reason [...] (Calculated): 27.27 Weight Evaluation: Overweight (BMI 25-29.9) Sayre Body Weight (kg): 86.4 Percent [place] Body Weight: 112 Adjusted Body Weight (kg): [...] oz) Estimated Needs: Kcal/ K-35 Kcal Provided: 2899-0594 Kcal Needs Based On: Current weight Gm [...] Education Provided: Yes (Post-transplant) Pertinent home medications: Worship needs: Nutrition Focused Physical Exam: Physical exam [...] anxiety, GERD, and HTN who presents to [facility] on 01/02 for possible liver [...] results found for: BDVEN , BEVEN , TRY5GCJ , QKJ1UUV , PHVEN , PO2VEN , Y9RUQCTS , CGI9ESNLETU , PHVENTEMP Lactate: Lactate, Arterial, Whole Blood [...] Anxiety Thrombocytopenia (CMS/HCC) Hypotension Elevated INR Coagulopathy NIAN (acute kidney injury) Abdominal distension [ ] Plt downtrending > subqH held [ ] if he spikes fever, call GI about emergent ERCP [ ] NPO, DVT ppx held for ERCP for biliary stricture Orly Tay is a 44yo male with a PMH of decompensated alcohol related cirrhosis, ascites, HE, SBP, depression, anxiety, GERD, and HTN who presents to [facility] on 01/02 for possible liver transplant. Now s/p liver transplant on 01/03. Extubated post[place]op 01/03 to [place], now on RA. HDS off pressors. Abdominal [...] Edited by: Velasquez Odonnell MD at 2025 4408 Velasquez Odonnell MD PGY-1 General Surgery 2025 [...] Orly Tay Date of : 1980 Room: [facility] Reason for consultation: Liver transplant pt with biliary stricture on MRCP Subjective: History of present illness: Mr. Orly Tay is a 44 y.o. year old male with a PMH of decompensated alcohol related cirrhosis s/p OLT, ascites, HE, SBP, depression, anxiety, GERD, and HTN who presents to [facility] on 01/02 for possible liver [...] anxiety, GERD, and HTN who presents to [facility] on 01/02 for possible liver [...] Owen, Gastroenterology and Hepatology, PGY-4 Healthcare Pager: [phone] [1] Past Medical History: Diagnosis Date Anxiety [...] mg, 10 mg, Rectal, Daily, Tg Morales SHIFTMAN, 10 mg at 01/09/25 0844 buPROPion SR [...] Simmons APRN, DNP, 324 mg at 01/11/25 08 fluconazole (Diflucan) tablet 200 mg, 200 [...] tablet, 2 tablet, Oral, BID, Tg Morales, SHIFTMAN, 2 tablet at 01/11/25 0826 sodium chloride 0.9 % flush 10 mL, 10 mL, Intravenous, q12h, Camilla Soto R, SHIFTMAN, DNP, 10 mL at 01/11/25 0452 sodium chloride 0.9 % flush 10 mL, 10 mL, Intravenous, q1h PRN, Camilla Soto R, SHIFTMAN, DNP sodium chloride 0.9 % flush 20 mL, 20 mL, Intravenous, q1h PRN, Camilla Soto R, SHIFTMAN, DNP sulfamethoxazole-trimethoprim (Bactrim) 400-80 MG per tablet [...] Review Outcome: Ongoing, Progressing Flowsheets (Taken 01/11/2025 153) Progress: improving Plan of Care Reviewed With: [...] Progressing Intervention: Promote Injury-Free Environment Flowsheets (Taken 01/11/2025799) Safety Promotion/Fall Prevention: activity [...] 01/11/2025 153) Mutually Determined Action Steps (Optimized Cognitive Function): [...] 01/11/2025 153) Mutually Determined Action Steps (Improved Sleep): identifies disturbance factors Goal: Enhanced Social, Occupational or Functional Skills (Anxiety Signs/Symptoms) Outcome: Ongoing, Progressing Flowsheets (Taken 01/11/2025 153) Mutually Determined Action Steps (Enhanced Social, Occupational or Functional Skills): participates in social skills training identifies support resources identifies personal strengths Goal: Improved Somatic Symptoms (Anxiety Signs/Symptoms) Outcome: Ongoing, Progressing Flowsheets (Taken 01/11/2025 153) Mutually Determined Action Steps (Improved Somatic Symptoms): [...] Prevent or Manage Infection Flowsheets (Taken 01/11/2025 153) Infection Management: aseptic technique maintained Fever Reduction/Comfort Measures: lightweight clothing lightweight bedding Isolation Precautions: precautions maintained * Progress Notes - Yari Quesada MD - 01/11/2025 8:06 AM EST Abdominal Transplant Surgery Progress Note Events of past 24 hours: Orly Tay is a 44yo male with a PMH of decompensated alcohol related cirrhosis, ascites, HE, SBP, depression, anxiety, GERD, and HTN who presents to [facility] on 01/02 for possible liver [...] results found for: BDVEN , BEVEN , PNB7AIH , IAW2IXZ , PHVEN , PO2VEN , A0MILAOJ , AJB3YOEFCNF , PHVENTEMP Lactate: Lactate, Arterial, Whole Blood [...] anxiety, GERD, and HTN who presents to [facility] on 01/02 for possible liver transplant. Now s/p liver transplant on 01/03. Extub[place] 01[place]03 to [place], now on RA. HDS off pressors. Abdominal [...] Edited by: Yari Quesada MD at 01/11/2025 0888 Yari Quesada MD Department of Urology, PGY-1 Pager: [phone] [1] amLODIPine, 5 mg, Oral, Daily aspirin, [...] Progressing Flowsheets (Taken 01/10/2025 1622 by Rosibel Delvalle RN) Progress: improving Outcome Evaluation: pt and [...] Goal (Individualized) Outcome: Ongoing, Progressing Flowsheets (Taken 01/10/2025799) Patient/Family-Specific Goals (Include Timeframe): Pt will remain [...] Intervention: Provide Person-Centered Care Flowsheets (Taken 01/10/2025 162) Trust Relationship/Rapport: care explained choices provided emotional [...] Signs/Symptoms) Outcome: Ongoing, Progressing Flowsheets (Taken 01/10/2025 1622) Mutually Determined Action Steps (Optimized Energy Level): [...] Functional Joint Range Position Flowsheets (Taken 01/10/2025 162) Range of Motion: active ROM (range of [...] Prevent or Manage Infection Flowsheets (Taken 01/10/2025 162) Fever Reduction/Comfort Measures: lightweight bedding lightweight clothing * Progress Notes - Yari Quesada MD - 01/10/2025 11:52 AM EST Abdominal Transplant Surgery Progress Note Events of past 24 hours: Orly Tay is a 44yo male with a PMH of decompensated alcohol related cirrhosis, ascites, HE, SBP, depression, anxiety, GERD, and HTN who presents to [facility] on 01/02 for possible liver [...] Edited by: Yari Quesada MD at 01/10/2025 4398 Review of Systems: 14-point ROS negative except [...] results found for: BDVEN , BEVEN , NTL5KTR , JZZ6DXV , PHVEN , PO2VEN , M7QIJISJ , SUR3CMPMGPS , PHVENTEMP Lactate: Lactate, Arterial, Whole Blood [...] anxiety, GERD, and HTN who presents to [facility] on 01/02 for possible liver transplant. Now s/p liver transplant on 01/03, recovering well. Extubated post[place]op 01/03 to [place]. HDS off pressors.Hasn't required blood products for resuscitation in several days. Abdominal exam is stable. InitialUS Liver read as unremarkable with patent flow, liver function improving appropriately. NIAN improved. With increasing Tbili, will obtain stat liver U/S and MRCP, and add on ursodiol Neuro: [facility] escitalop[facility], wellbutrin, trazodone CV: HDS [...] Edited by: Yari Quesada MD at 01/10/2025 5280 Yari Quesada MD Department of Urology, PGY-1 Pager: [phone] [1] amLODIPine, 5 mg, Oral, Daily aspirin, [...] toxic side effects, and adjusted levels appropriately. [facility]. Us ok. Jude Albrecht M.D. Abdominal Transplant Surgery * Care Plan - Bree Mcfarland RN - 01/09/2025 7:32 PM EST Problem: Adult Inpatient Plan of Care Goal: Plan of Care Review Outcome: Ongoing, Progressing Flowsheets (Taken 01/09/2025 1931) Progress: improving Outcome Evaluation: pt states understanding [...] Note Orly Tay 44 y.o. male CSN: [id number] Admission: 01/02/2025 9:05 AM Primary Problem: Decompensation of cirrhosis of liver (CMS/HCC) JHON requested to follow up with [facility] on referral for acute rehab. Per [facility] liaison, Pt will be coming under [facility] and auth has not been started with [facility] yet. JHON completed [place] RFS form and sent [phone]. Also sent email to notifing referral sent. Handoff provided to primary cm to follow up on Sunday. Vanda Radford NUCLEAR CARDIOLOGY TECHNOLOGIST, SENIOR PARTNER Case Management * Progress Notes - Cheryl Choi MD - 01/09/2025 8:32 AM EST Abdominal Transplant Surgery Progress Note Events of past 24 hours: Orly Tay is a 44yo male with a PMH of decompensated alcohol related cirrhosis, ascites, HE, SBP, depression, anxiety, GERD, and HTN who presents to [facility] on 01/02 for possible liver [...] results found for: BDVEN , BEVEN , UMG3XYM , HUI4CDO , PHVEN , PO2VEN , X1KPEFGQ , EMT3IPWHOSO , PHVENTEMP Lactate: Lactate, Arterial, Whole Blood [...] anxiety, GERD, and HTN who presents to [facility] on 01/02 for possible liver transplant. Now s/p liver transplant on 01/03, recovering well. Extub[place]03 to [place]. HDS off pressors.Hasn't required blood products for [...] walker Additional Comments Patient had been to [facility] in September, and was still receiving outpatient PT. PRIOR LEVEL OF FUNCTION Receives help from Spouse Level of Mobility Ambulatory- household only Mobility Grainger Independent gait without device History of Falls [...] unaware when pt may be discharged from [facility]. Dough Mixer Operator (if applicable) Dough Mixer Operator: Not Applicable OBJECTIVE & INTERVENTIONS PAIN Pain [...] sedentary status. Pt participatedin bed mobility, supine-sit, [id number] and toilet transfers. They were able to [...] appropriate activity pacing. BED MOBILITY Level of Grainger Physical/Non- physical Assist Adaptive Equipment Utilized Rolling/ Turning Minimum assist (75% patient effort) Verbal Cues, Additional assist utilized for safety, Minimal cues Bed rail Scooting/ Bridging Contact guard Verbal Cues, Minimal cues, Additional assist utilized for safety Supine to Sit Moderate assist (50% patient's effort) Verbal Cues, Nonverbal cues (demo/gestures), Moderate cues, Additional assist utilized for safety Bed rail TRANSFERS Level of Grainger Physical/Non- physical Assist Adaptive Equipment Utilized Sit to Stand Minimum assist (75% patient's effort) Verbal Cues, Nonverbal cues (demo/gestures), Additional assist utilized for safety Walker, rolling Stand to sit Minimum assist (75% patient's effort) Verbal Cues, Nonverbal cues (demo/gestures) Walker, rolling Toilet Transfer Ambulation, To toilet BALANCE Postural Appearance Posture: Rounded shoulders, Forward head Level of Grainger Balance Support Facilitated Activities Static Sit Standby [...] shifts, Reaching for objects AMBULATION Level of Grainger Distance Adaptive Equipment Utilized Ambulation Minimum assistance [...] review the written HEP and ask questions. [email or web address] Access Code: [email or web address] Standardized Assessments [facility] 6-Clicks Mobility Assessment Difficulty patient has [...] 3-5 steps with a railing?: A lot [facility] 6-Clicks Mobility Assessment Total : 16 [...] Care Family/Caregiver Present: Yes Family/Caregiver: Spouse, Mother Dough Mixer Operator: Not Applicable Presentation Oxygen Therapy: None (Room [...] transition. Bed Mobility Exam: Rolling/Turning Level of Grainger: Minimum assist (75% patient effort) Physical/Nonphysical Assist: Verbal Cues, Additional assist utilized for safety, Minimal cues Assistive Device: Bed rails Bed Mobility Exam: Scooting/Bridging Level of Grainger: Contact guard Physical/Nonphysical Assist: Verbal Cues, Minimal cues, Additional assist utilized for safety Assistive Device: Bed rails Bed Mobility Exam: Supine to Sit Level of Grainger: Moderate assist (50% patient's effort) Physical/Nonphysical Assist: Verbal Cues, Nonverbal cues (demo/gestures), Moderate cues, Additionalassist utilized for safety Assistive Device: Bed rails Transfers See Self-Care section for details on OT transfer interventions. Transfer Exam: Sit to stand Level of Grainger: Minimum assist (75% patient's effort) Physical/Nonphysical Assist: Verbal Cues, Nonverbal cues (demo/gestures), Additional assist utilized for safety Assistive Device: Walker, rolling Transfer Exam: Stand to Sit Level of Grainger: Minimum assist (75% patient's effort) Physical/Nonphysical Assist: Verbal Cues, Nonverbal cues (demo/gestures) Assistive Device: Walker, rolling Toilet Transfer Level of Grainger: Minimum assist (75% patient's effort) Physical/Nonphysical Assist: [...] HEP also reviewed with caregiver. Access Code: [email or web address] Exercises - Seated Shoulder Horizontal Abduction with [...] anxiety, GERD, and HTN who presents to [facility] on 01/02 for possible liver [...] results found for: BDVEN , BEVEN , LEW4VKM , MWK9PAO , PHVEN , PO2VEN , O2XIVGVM , NTG8CMGFDPB , PHVENTEMP Lactate: Lactate, Arterial, Whole Blood [...] anxiety, GERD, and HTN who presents to [facility] on 01/02 for possible liver transplant. Now s/p liver transplant on 01/03, recovering well. Extubated post-op 01/03 to [place]. HDS off pressors.Hasn't required blood products for [...] or Injury Intervention: Prevent Infection Flowsheets (Taken 01/08/2025319) Infection Prevention: hand hygiene promoted rest/sleep promoted [...] DearMariela RN - 01/07/2025 2:14 PM EST infrastructure analyst attended table rounds with MD Olson and [...] Note Orly Tay 44 y.o. male CSN: [id number] Room/Bed 213/213A Nutrition evaluation type: follow-up Reason [...] 30.81 Weight Evaluation: Obese-Class 1 (BMI 30-34.9) [place]re Body Weight (kg): 86.4 Percent [place]re Body Weight: 126 Adjusted Body Weight (kg): [...] oz) Estimated Needs: Kcal/ K-35 Kcal Provided: 4120-4887 Kcal Needs Based On: Adjusted weight Gm [...] Education Provided: Yes (Post-transplant) Pertinent home medications: Worship needs: Nutrition Focused Physical Exam: Physical exam [...] anxiety, GERD, and HTN who presents to [facility] on 01/02 for possible liver [...] results found for: BDVEN , BEVEN , HEQ2FGM , WMS3FFH , PHVEN , PO2VEN , T9GOWPBV , TWG6PBFQVZX , PHVENTEMP Lactate: Lactate, Arterial, Whole Blood [...] anxiety, GERD, and HTN who presents to [facility] on 01/02 for possible liver transplant. Now s/p liver transplant on 01/03, recovering well. Extubated post-op 01/03 to [place]. HDS off pressors.Hasn't required blood products for [...] Félix Simmons APRN, PATTI, 150 mg at 01/07/25 08 carvedilol (Coreg) tablet 25 mg, 25 mg, Oral, BID, Camilla Soto APRN, PATTI, 25 mg at 01/07/25 08 [START ON [...] breakfast, Félix Simmons APRN,PATTI, 324 mg at 01/07/25 08 fluconazole (Diflucan) [...] Soto APRN, PATTI, 20 mg at 01/06/25 0725 insulin regular [...] Camilla Soto APRN, PATTI, 40 mg at 01/07/25 0813 polyethylene glycol [...] Camilla Soto APRN, PATTI, 50 mg at 01/06/252121 [START ON 01/10/2025] [...] of care without further critical care needs. [facility] will sign off. Thank you for allowing us to participate in the care of this patient. Please feel free to consult us for any further needs. * Progress Notes - Laura Muñiz LCSW - 01/06/2025 9:29 AM EST Transplant Social Work Progress Note Identifying Information: Patient Name: Orly Tay Date of : 1980 Clinical Summary: [facility] is actively collaborating with the multidisciplinary team [...] has acute rehab rec's and agreeable to [facility]. reports she will be staying with patient. She had received a parking ticket for parking in a visitor spot and had been unable to get it voided. SW spoke with [employer] and provided patient's name and anticipated duration [...] card assistance on discharge. Laura Muñiz LCSW, [facility] Transplant Dental Financial Coordinator Liver team * Progress Notes - Yari Quesada MD - 01/06/2025 8:30 AM EST Abdominal Transplant Surgery Progress Note Events of past 24 hours: Orly Tay is a 44yo male with a PMH of decompensated alcohol related cirrhosis, ascites, HE, SBP, depression, anxiety, GERD, and HTN who presents to [facility] on 01/02 for possible liver [...] anxiety, GERD, and HTN who presents to [facility] on 01/02 for possible liver transplant. Now s/p liver transplant on 01/03, recovering well. Extubated post-op 01/03 to [place]. HDS off pressors.Hasn't required blood products for [...] Quesada MD Department of Urology, PGY-1 Pager: [phone] [1] amLODIPine, 5 mg, Oral, Daily buPROPion [...] Camilla Soto APRN, DNP, 5 mg at 01/06/25 0812 buPROPion SR (Wellbutrin SR) 12 hr tablet 150 mg, 150 mg, Oral, BID, Félix Simmons APRN, DNP, 150 mg at 01/06/25 08 carvedilol (Coreg) tablet 25 mg, 25 mg, Oral, BID, Camilla Soto APRN, DNP, 25 mg at 01/06/25 08 escitalopram (Lexapro) tablet 10 mg, 10 mg, Oral, Daily, Félix Simmons APRN, DNP, 10 mg at 01/06/25 08 fentaNYL (Sublimaze) injection 25 mcg, 25 mcg, Intravenous, q2h PRN, 25 mcg at 01/05/25 0913 ORfentaNYL (Sublimaze) injection 50 mcg, 50 mcg, Intravenous, q2h PRN, Camilla Soto APRN, DNP, 50 mcg at 01/05/25 0354 ferrous sulfate EC tablet 324 mg, 324 mg, Oral, Daily with breakfast, Félix Simmons APRN,DNP, 324 mg at 01/06/25 0812 [START ON [...] Olson MD, Last Rate: 152.5 mL/hr at 01/05/25 2019, 1,000 mg at 01/05/25 2019 mycophenolate (Cellcept) capsule 1,000 mg, 1,000 mg, [...] 10 mL, 10 mL, Intravenous, q12h, Camilla Soot APRN, DNP, 10 mL at 01/06/25 0427 [...] Patient: Orly Tay : 1980 PCP: Param Eng, DO at [address] [place] [address] / [place] [address] Payor: [facility] / Plan: [place] [employer] / Product Type: *No Product type* [...] Children: denies Previous Residence: lives with in [place], [place] in a 1 story house with a basement with 3 steps to enter Anticipated Residence: as above Support: family Tobacco: quit chewing tobacco 6 weeks ago Alcohol: 1/5 of bourbon a day for the last year Drugs: denies Travel: denies international travel in the last 6 months 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 Tylor auris Surveillance by PCR [[id number]] (Normal) Collected: 01/03/251608 Order Status: Completed Specimen: Swab from Axilla and Groin Updated: 01/04/25 1152 Tylor auris PCR Result Not Detected Narrative: This PCR assay was developed and its performance characteristics determined by [facility] as appropriate for clinical [...] Abnormal Ventricular Rate 66 Atrial Rate 66 WA Interval 178 QRSD Interval 88 QT Interval 474 QTC Interval 496 P Colora 45 R Colora 29 T Wave Colora 19 Diagnosis Normal sinus rhythm Diagnosis QTcB [...] kg from bed weight due to bed math and science instructor SpO2 97% BMI 31.60 kg/m?? Gen: NAD, [...] We will continue to follow. Please page [phone] with any questions, or resident on-call if [...] Kwon RN - 01/05/2025 12:39 PM EST infrastructure analyst rounded with MD Olson and members of [facility] team this AM. Pt in bed, alert and interactive. Oxygen per nasal cannula at time of visit. Concern for transfusion over past 24 hrs. Team will follow H and H closely. Per pt drains less bloody this AM. Discussion concerning HTN. Meds to be adjusted if needed. PT/OT recommending acute rehab. Referral to [facility]. PM and R aware of need [...] Right Radial 01/03/25 0810 Radial 2 GCS: [place] Coma Scale Score: 15 Review of Systems [...] Tay Date of : 1980 Clinical Summary: [facility] is actively collaborating with the multidisciplinary team [...] post- transplant psychosocial needs Laura Muñiz LCSW, [facility] Transplant Dental Financial Coordinator Liver team * Progress Notes - Isiah Armida B - 01/05/2025 9:46 AM EST OCCUPATIONAL THERAPY [...] engaged throughout session. Visitors Present Spouse, Mother Dough Mixer Operator (if applicable) PRESENTATION Oxygen Supplemental oxygen Nasal [...] walker Additional Comments Patient had been to [facility] in September, and was still receiving outpatient PT. PRIOR LEVEL OF FUNCTION Receives help from Spouse Level of Mobility Ambulatory- household only Mobility Grainger Independent gait without device History of Falls [...] needed areas of treatment space Level of Grainger Interventions: Grooming Minimum assistance Chair level Simulated [...] toileting intervention was completed using a simulated [id number]-commode transfer.The patient required MIN physical assistance for [...] of bilateral hands. BED MOBILITY Level of Grainger Physical/Non- physical Assist Adaptive Equipment Utilized Rolling/ [...] Bed rails, Other (drawsheet) TRANSFERS Level of Grainger Physical/Non- physical Assist Adaptive Equipment Utilized Sit [...] Appearance Posture: Within Functional Limits Level of Grainger Balance Support Interventions Static Sit Contact guard [...] Lateral weight shifts [employer]CTIONAL [employer]URANCE Level of Grainger Distance Adaptive Equipment Utilized Functional Mobility Minimum assistance, Minimal verbal cues, Additional assist needed for line management, Chair follow, Additional assist utilized for safety 10ft Rolling walker Chair follow STANDARDIZED ASSESSMENTS [facility] 6-Click Daily Activities Help from Other: Don/Doff Regular Lower Body Clothings: A lot Help From Other: Bathing: A lot Help From Other: Toileting: A lot Help From Other: Don/Doff Upper Body Clothings: Little Help From Other: Grooming: Little Help From Other: Eating Meals: Little [facility] 6 Click - Daily Activities Score: 15 [...] Care Family/Caregiver Present: No Family/Caregiver: Spouse, Mother Dough Mixer Operator: Not Applicable Presentation Oxygen Therapy: Supplemental oxygen [...] Home Living Comments: Patient had been to [facility] in September, and was still receiving outpatient PT. Prior Level of Function Receives Help From: Spouse Level of Mobility: Ambulatory- household only Mobility Grainger: Independent gait without device History of Falls: [...] bed. Bed Mobility Exam: Rolling/Turning Level of Grainger: Minimum assist (75% patient effort) Physical/Nonphysical Assist: Verbal Cues, Nonverbal cues (demo/gestures), 1 person + 1 person to manage equipment Bed Mobility Exam: Scooting/Bridging Level of Grainger: Minimum assist (75% patient's effort) (seated scoot) Physical/Nonphysical Assist: Nonverbal cues (demo/gestures), Verbal Cues Bed Mobility Exam: Supine to Sit Level of Grainger: Moderate assist (50% patient's effort) Physical/Nonphysical Assist: [...] Transfer Exam: Sit to stand Level of Grainger: Minimum assist (75% patient's effort) Physical/Nonphysical Assist: Verbal Cues, Nonverbal cues (demo/gestures), Additional assist utilized for safety Assistive Device: Hand held assist Transfer Exam: Stand to Sit Level of Grainger: Minimum assist (75% patient's effort) Physical/Nonphysical Assist: Nonverbal cues (demo/gestures), Verbal Cues, Additional assist utilized for safety Assistive Device: Hand held assist Transfer Exam: Bed to Chair/Chair to Bed Level of Grainger: Minimum assist (75% patient's effort) Physical/Nonphysical Assist: [...] activity. Standardized Assessments Standardized Assessments Standardized Assessments: [facility] 6-Clicks Mobility Assessment [facility] 6-Clicks Mobility Assessment Difficulty patient has [...] 3-5 steps with a railing?: A lot [facility] 6-Clicks Mobility Assessment Total : 17 [...] from staff/family. 2 weeks Written by Elyssa M Short on 01/05/25 at 10:02 AM. * Progress Notes - Abisai Kirk - 01/05/2025 8:09 AM EST Abdominal Transplant Surgery Progress Note Events of past 24 hours: Orly Tay is a 44yo male with a PMH of decompensated alcohol related cirrhosis, ascites, HE, SBP, depression, anxiety, GERD, and HTN who presents to [facility] on 01/02 for possible liver [...] 1859 01/03/25 1900 - 01/04/25 0659 01/04/25 07 - 01/04/25 1859 01/04/25 1900 [...] ] F/u Liver US [ ] Hold subQ and asa Orly Tay is a 44yo male with a PMH of decompensated alcohol related cirrhosis, ascites, HE, SBP, depression, anxiety, GERD, and HTN who presents to [facility] on 01/02 for possible liver transplant. Now s/p liver transplant on 01/03, recovering well. Extubated post-op 01/03 to [place]. HDS off pressors.Received pRBCs and FFP ON. [...] saw and evaluated the patient with the medical/SALESPERSON BOOKS/PA student. I discussed the case with the medical/SALESPERSON BOOKS/PA student and agree with the findings and [...] Félix Simmons APRN, PATTI, 150 mg at 01/05/25 0845 carvedilol (Coreg) tablet 25 mg, 25 mg, Oral, BID, Camilla Soto APRN, PATTI, 25 mg at 01/05/25 0824 escitalopram (Lexapro) tablet 10 mg, 10 mg, Oral, Daily, Félix Simmons APRN, PATTI, 10 mg at 01/05/25 0824 fentaNYL (Sublimaze) injection 25 mcg, 25 mcg, Intravenous, q2h PRN, 25 mcg at 01/05/25 0913 ORfentaNYL (Sublimaze) injection 50 mcg, 50 mcg, Intravenous, q2h PRN, Camilla Soto APRN, PATTI, 50 mcg at 01/05/25 0354 ferrous sulfate EC tablet 324 mg, 324 mg, Oral, Daily with breakfast, Félix Simmons APRN,PATTI, 324 mg at 01/05/25 0845 fluconazole in [...] Soto APRN, PATTI, 20 mg at 01/05/25 0713 insulin regular (HumuLIN R,NovoLIN R) 100 units/mL injection - Correction - Standard Dose, 0-5 Units, Subcutaneous, q6h [facility], Negro Cr MD labetalol (Normodyne,Trandate) injection [...] Camilla Soto APRN, PATTI, 10 mL at 01/04/25 1722 sodium chloride 0.9 % flush 10 mL, 10 mL, Intravenous, q1h PRN, Camilla Soto APRN, PATTI sodium chloride 0.9 % flush 20 mL, 20 mL, Intravenous, q1h PRN, Camilla Soto APRN, PATTI tacrolimus (Prograf) capsule 2 mg, 2 mg, [...] Monitor Pain and Promote Comfort Flowsheets (Taken 01/04/20251911) Pain Management Interventions: medication (see MAR) Intervention: [...] Alicia Rodrigues PharmD PGY2 Solid Organ Transplant Room Service Server * Progress Notes - Laura Muñiz LCSW [...] interventions in follow-up notes Laura Muñiz LCSW, [facility] Transplant Dental Financial Coordinator Liver team * ED Procedure Note - Cheryl Choi MD - 01/04/2025 11:23 AM EST Abdominal Transplant Surgery Progress Note Events of past 24 hours: Orly Tay is a 44yo male with a PMH of decompensated alcohol related cirrhosis, ascites, HE, SBP, depression, anxiety, GERD, and HTN who presents to [facility] on 01/02 for possible liver transplant. Interval: POC okay, 1u pRBCs and 1u FFP ON. Extubated, on 4L NC. HDS, no pressors. AF. UOP 3.3L. JP90 and 10 charted. Cr 1.40 (1.25). LFTs and Tbili downtrending. Edited by: Cheryl Choi MD at 01/04/2025 7037 Review of Systems: 14-point ROS negative except [...] results found for: BDVEN , BEVEN , PAI9MYZ , KKX4JDU , PHVEN , PO2VEN , E9PXDXKZ , QEX8BZJPXFR , PHVENTEMP Lactate: Lactate, Arterial, Whole Blood [...] anxiety, GERD, and HTN who presents to [facility] on 01/02 for possible liver transplant. Now s/p liver transplant on 01/03, recovering well. Extubated overnight to [place]. HDS off pressors. Received pRBCs and FFP [...] Assessment & Plan Note - Camilla Soto, SHIFTMAN, DNP - 01/04/2025 10:20 AM EST Associated [...] Note Orly Tay 44 y.o. male CSN: [id number] Room/Bed 238/238A Nutrition evaluation type: assessment Reason [...] 30.3 Weight Evaluation: Obese-Class 1 (BMI 30-34.9) [place]re Body Weight (kg): 86.4 Percent [place] Body Weight: 124 Estimated Needs: Metabolic Cart Study Results: Current Nutrition Intake: Diet Supplements: None Diet Order: NPO Diet Experience and Nutrition History: Diet Education Provided: Will monitor Pertinent home medications: Worship needs: Nutrition Focused Physical Exam: Unable to [...] 01/04/2025 0600 Gross per 24 hour Intake 07682 ml Output 3680 ml Net 6536 ml [...] * Assessment & Plan Note - Camilla Stoo APRN, DNP - 01/03/2025 3:54 PM EST [...] ~1.5L ascites and EBL 4.8L intra- operatively. [facility] consulted postop for critical care needs. [...] Home Medications: Home Medications[1] Allergies Amoxicillin GCS: [place] Coma Scale Score: 15 Review of Systems Unable to perform ROS: Intubated Vital signs: Vitals: 01/03/25 1515 BP: Pulse: 75 Resp: 18 Temp: 37.2 ??C (99 ??F) SpO2: 97% Intake/Output Summary (Last 24 hours) at 01/03/2025 1518 Last data filed at 01/03/2025 1407 Gross per 24 hour Intake 08234 ml Output 1040 ml Net 19053 ml Physical Exam: Sedation was held for [...] to trend Transfuse for INR<2 Camilla Soto, TITA, DNP [1] Medications Prior to Admission Medication [...] mL by mouth 2 times a day. 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 Dress Designer(s): * Negro Cr MD - Resident - [...] drainage 01/06/25 0400 Drainage Appearance Bloody 01/06/25 040 Status Open to gravity drainage 01/06/25 0400 Output (mL) 90 mL 01/06/25 0600 Urethral Catheter Single lumen;Temperature probe 16 Fr. (Active) Site Assessment Clean;Skin intact 01/06/25 040 CAUTI: Collection Container Standard drainage bag 01/06/25 040 CAUTI: Securement Method Securing device (Describe) 01/06/25399 CAUTI: Specimen Collection Port Covered with Alcohol Cap Yes 01/05/251999 CAUTI: Urinary Catheter Indication Yes, meets indication reason 01/05/251999 CAUTI: Urinary Catheter Indication Reasons ICU patient requiring output monitoring q 1-2 hours withinterventions 01/05/251999 Output (mL) 100 mL 01/06/25 0800 [REMOVED] NG/OG [place] Sump Orogastric Left mouth (Removed) Placement Verification [...] ID Source Frozen? 1 Liver No Description: [place] liver A Blood, Arterial B Blood, Arterial [...] abuse POSTOPERATIVE DIAGNOSIS: Same NAME OF OPERATION: 19944 - Orthotopic cadaveric liver allotransplantation, bicaval technique. 38743 - Choledochocholedcostomy 25926 - Placement of choledochal stent ATTENDING SURGEON: Satnam Beckford MD MECHANIC FOREMAN SURGEON(S): Jude Albrecht MD RESIDENT SURGEON(S): Negro Cr MD ATTENDING ANESTHESIOLOGIST: Josafat Rivera MD MECHANIC FOREMAN ANESTHESIOLOGIST: Aravind Benton MD SPECIMEN: None DISPOSITION: [...] Quesada MD Department of Urology, PGY-1 Pager: [phone] * Care Plan - Allison Rosenbaum RN [...] nightly. Facility-Administered Medications: None Patients Preferred Pharmacy* [facility] - [place], [place] - [id number] [facility] [address] [facility] [address] [place] [address] [place] [address] MaurizioBethjeanette [facility] [place] - [address] [place] [address] *May default to [facility] if patient is enrolled to [id number] Service. Pharmacy Benefits ORLY TAY [facility] (MEDIMPACT) Covered: <b>Retail</b> Not covered: Mail Order Unknown: Specialty, Long-Term Care BIN: [id number] : 1980 Group ID: [id number] PCN: [id number] Legal sex: M Group name: Address: [facility] [address] [place] [id number] Additional Comments: reviewed med list with patient's over the phone Greg Sibley PharmD 01/02/2025 4:27 PM I agree with the information documented above. All student/winter intern notes from collection of information has [...] Note Orly Tay 44 y.o. male CSN: [id number] Admission: 01/02/2025 9:05 AM Primary Problem: Decompensation of cirrhosis of liver (CMS/HCC) Summer Child Caregiver reviewed chart and spoke with patient to complete this Initial Case Management Assessment. PCP: Param Eng DO Emergency Contact: Extended Emergency Contact Information Primary Emergency Contact: Patricia Tay Address: [facility] [address] [place] [address] [place] Relation: Spouse Preferred language: Nigerien Insurance: Primary Visit Coverage Payer Plan Sponsor Code Group Number Group Name [facility] Primary Visit Coverage Subscriber Subscriber ID Subscriber Name Subscriber [facility] Subscriber Address [id number] ORLY TAY [id number] [place] [address] Secondary Visit Coverage Payer Plan Sponsor Code Group Number Group Name [employer] [facility] [place] Secondary Visit Coverage Subscriber Subscriber ID Subscriber Name Subscriber [facility] Subscriber Address [id number] Orly Tay [id number] [place] [address] Patient information: Pt admitted for liver transplant. [...] still driving. [address] [place] [id number] Current DME: No DME at this time. [...] Patient's Discharge Goal: Pt would agree to [facility] stay if needed. He has had rehab stay at [facility] in past. Assistance Available at Discharge: = Primary Mother is secondary. Discharge Transport: Follow Up Transport: Home Health / Home Infusion / Outpatient Dialysis Services: No history of home health. No history of home infusion. No history of dialysis. Living Will/Advance Directive/Power of [employer] Operations Intelligence Chief /Guardian: can make medical decisions if pt can not. Additional Comments: infrastructure analyst met with pt at bedside. Pt alert and interactive. Room air. Mariela Carmona Dear, RN * Progress Notes - Laura Muñiz LCSW - 01/02/2025 11:02 AM EST Transplant Social Work Progress Note Identifying Information: Patient Name: Orly Tay Date of : 1980 Clinical Summary: Per team, [facility] is aware of the patient's admission due to possible liver transplant. [facility] is actively collaborating with the multidisciplinary team to support ongoing psychosocial needs related to transplant during patient's admission. Laura Muñiz LCSW, [facility] Transplant Dental Financial Coordinator Liver team * H&P - Félix Simmons APRN, DNP - 01/02/2025 7:48 AM EST Abdominal Transplant Surgery H&P CHIEF COMPLAINT: Decompensated Cirrhosis, possible Liver translplant HISTORY OF PRESENT ILLNESS: Orly Tay is a 44yo male with a PMH of decompensated alcohol related cirrhosis, ascites, HE, SBP, depression, anxiety, GERD, and HTN who presents to [facility] on 01/02 forpossible liver transplant. [...] anxiety, GERD, and HTN who presents to [facility] on 01/02 for possible liver [...] trazodone 50mg nightly Edited by: Félix Simmons, SHIFTMAN, DNP at 01/02/2025 1131 Patient educated on [...] mL by mouth 2 times a day. [address]142 mL 3 pantoprazole (Protonix) 40 MG EC [...] Description 02/17/2025 7:00 AM EST Clinical Support [facility] [address] [place] [address] 02/17/2025 8:40 AM EST Office Visit [facility] [address] [place] [address] Fqrxokyrsq-Jqwto-V urgery-Paul 03/06/2025 11:10 AM EST Appointment [facility] [address] [place] [address] Natalya Valentine MD [address] [place] [id number] Pending Results Name Type Priority Associated Diagnoses [...] W/O DIFFERENTIAL Timed 01/05/2025 12:00 PM EST [facility], E/M 30-74 MINUTES Routine 01/05/2025 [...] PEP THERAPY Routine 01/04/2025 10:00 AM EST [facility], E/M 30-74 MINUTES Routine 01/04/2025 [...] VIEW STAT 01/03/2025 3:3 9 PM EST [facility], E/M 30-74 MINUTES Routine 01/03/2025 [...] - 99 mg/dL 01/16/2025 12:04 PM EST [facility] Comment:Accuracy of a glucos e result [...] 01/16/2025 12:04 PM EST [facility] Office Sweeper ID Shonda Kimbrough 12:04 PM EST [facility] Device ID [id number] 01/16/2025 12:04 PM EST [facility] Specimen Type POC Capillary 01/16/2025 12:04 PM EST [facility] Blood Capillary blood specimen / Unknown 01/16/2025 12:01 PM EST 01/16/2025 12:04 PM EST Satnam Beckford MD LAB POINT OF CARE T EST DOCKED DEVICE UNSOLICITED RESULTS Final Result Performing Organization Address City/[facility] [address]/ZIP Co de Phone Number [facility] [address] [place] [address] * (ABNORMAL) POCT glucose meter (01/16/2025 8:09 AM EST) [facility] POCT Glucose 135(H) 74 - 99 mg/dL [...] 01/16/2025 8:11 AM EST [facility] Office Sweeper ID Shonda Kimbrough 8:11 AM EST [facility] Device ID [id number] 01/16/2025 8:11 AM EST [facility] Specimen Type POC Capillary 01/16/2025 8:11 AM EST [facility] Blood Capillary blood specimen / Unknown 01/16/2025 8:09 AM EST 01/16/2025 8:11 AM EST Satnam Beckford MD LAB POINT OF CARE T EST DOCKED DEVICE UNSOLICITED RESULTS Final Result Performing Organization Address City/[facility] [address]/ZIP Co de Phone Number [facility] [address] [place] [address] * Tacrolimus (01/16/2025 4:48 AM EST) Tacrolimus 4.5 4.0 - 17.0 ng/mL 01/16/2025 8:10 AM EST [facility] Blood Venous blood specimen / Unknown Venipuncture / Unknown 01/16/2025 4:48 AM EST 01/16/2025 4:56 AM EST Narrative [facility] - 01/16/2025 8:10 AM EST Test performed by LC-MS/MS at the [facility]. This test was developed and its performance characteristics determined by [facility]. It has not been cleared or approved by the FDA. The laboratory is regulated under CLIA as qualified to perform high-complexity testing. This test is used for clinical purposes. Test performed by LC-MS/MS at the [facility]. This test was developed and its performance characteristics determined by [facility]. It has not been cleared or approved by the FDA. The laboratory is regulated under CLIA as qualified to perform high-complexity testing. This test is used for clinical purposes. Maciel Olson MD LAB BLOOD ORDERABLES Final Resul t Performing Organization Address City/[facility] [address]/ZIP Co de Phone Number [facility] [address] [place] [address] * Phosphorus (01/16/2025 4:47 AM EST) Phosphorus, Plasma 4.0 2.5 - 4.5 mg/dL 01/16/2025 5:24 AM EST [facility] Blood Venous blood specimen / Unknown Venipuncture / Unknown 01/16/2025 4:47 AM EST 01/16/2025 4:56 AM EST Maciel Olson MD LAB BLOOD ORDERABLES Final Resul t [facility] [address] [place] [address] * Magnesium (01/16/2025 4:47 AM EST) Magnesium, Plasma 2.0 1.9 - 2.4 mg/dL 01/16/2025 5:24 AM EST [facility] Blood Venous blood specimen / Unknown Venipuncture / Unknown 01/16/2025 4:47 AM EST 01/16/2025 4:56 AM EST us Maciel Olson MD LAB BLOOD ORDERABLES Final Resul t [facility] [address] [place] [address] * (ABNORMAL) Comprehensive metabolic panel (01/16/2025 4:47 AM EST) Glucose, Plasma 118(H) 74 - 99 mg/dL 01/16/2025 5:24 AM EST [facility] BUN, Plasma 45(H) 7 - 21 mg/dL 01/16/2025 5:24 AM EST [facility] Creatinine, Plasma 1.28(H) 0.70 - 1.20 mg/dL 01/16/2025 5:24 AM EST [facility] BUN/Creatinine Ratio 35 01/16/2025 5:24 AM EST [facility] Sodium, Plasma 138 136 - 145 mmol/L 01/16/2025 5:24 AM EST [facility] Potassium, Plasma 5.1(H) 3.6 - 4.9 mmol/L 01/16/2025 5:24 AM EST [facility] Chloride, Plasma 107 97 - 107 mmol/L 01/16/2025 5:24 AM EST [facility] CO2, Plasma 20(L) 22 - 29 mmol/L 01/16/2025 5:24 AM EST [facility] Anion Gap 11 6 - 16 mmol/L 01/16/2025 5:24 AM EST [facility] Total Calcium, Plasma 8.3(L) 8.9 - 10.2 mg/dL 01/16/2025 5:24 AM EST [facility] Total Protein 4.8(L) 6.3 - 7.9 g/dL 01/16/2025 5:24 AM EST [facility] Albumin, Plasma 2.7(L) 3.5 - 5.2 g/dL 01/16/2025 5:24 AM EST [facility] AST, Plasma 23 10 - 50 U/L 01/16/2025 5:24 AM EST [facility] ALT, Plasma 55(H) 10 - 50 U/L 01/16/2025 5:24 AM EST [facility] Alkaline Phosphatase, Plasma 93 40 - 115 U/L 01/16/2025 5:24 AM EST [facility] Total Bilirubin, Plasma 4.5(H) 0.2 - 1.1 mg/dL 01/16/2025 5:24 AM EST [facility] eGFRcr 69.9 mL/min/1.7 3m*2 01/16/2025 5:24 AM EST [facility] Comment:Reported eGFRcr in m L/min/1.73m2 is based the CKD-EPI 2020 equation that does not use a race coefficient. Blood Venous blood specimen / Unknown Venipuncture / Unknown 01/16/2025 4:47 AM EST 01/16/2025 4:56 AM EST Maciel Olson MD LAB BLOOD ORDERABLES Final Resul t [facility] [address] [place] [address] * (ABNORMAL) CBC W/O Differential (01/16/2025 4:47 AM EST) WBC Count 8.27 3.70 - 10.30 10*3/uL LAB HEMATOLOGY METHOD 01/16/2025 5:03 AM EST [facility] RBC Count 2.56(L) 4.60 - 6.10 10*6/uL LAB HEMATOLOGY METHOD 01/16/2025 5:03 AM EST [facility] HGB 8.3(L) 13.7 - 17.5 g/dL LAB HEMATOLOGY METHOD 01/16/2025 5:03 AM EST [facility] HCT 26.1(L) 40.0 - 51.0 % LAB HEMATOLOGY METHOD 01/16/2025 5:03 AM EST [facility] Platelet Count 124(L) 155 - 369 10*3/uL LAB HEMATOLOGY METHOD 01/16/2025 5:03 AM EST [facility] MCV 102(H) 79 - 98 fL LAB HEMATOLOGY METHOD 01/16/2025 5:03 AM EST [facility] MCH 32.4(H) 26.0 - 32.0 pg LAB HEMATOLOGY METHOD 01/16/2025 5:03 AM EST [facility] MCHC 31.8 30.7 - 35.5 g/dL LAB HEMATOLOGY METHOD 01/16/2025 5:03 AM EST [facility] RDW 24.0(H) 11.5 - 14.5 % LAB HEMATOLOGY METHOD 01/16/2025 5:03 AM EST [facility] MPV 10.3 8.8 - 12.5 fL LAB HEMATOLOGY METHOD 01/16/2025 5:03 AM EST [facility] nRBC 0.0 <=0.0 per 100 WBCs LAB HEMATOLOGY METHOD 01/16/2025 5:03 AM EST [facility] Blood Venous blood specimen / Unknown Venipuncture / Unknown 01/16/2025 4:47 AM EST 01/16/2025 4:56 AM EST us Maciel Olson MD LAB BLOOD ORDERABLES Final Resul t [facility] [address] [place] [address] * (ABNORMAL) Prothrombin Time/INR (01/16/2025 4:47 AM EST) Prothrombin Time 14.6(H) 12.0 - 14.3 sec LAB COAGULATION METHOD 01/16/2025 5:22 AM EST [facility] INR 1.1 0.9 - 1.1 LAB COAGULATION METHOD 01/16/2025 5:22 AM EST [facility] Blood Venous blood specimen / Unknown Venipuncture / Unknown 01/16/2025 4:47 AM EST 01/16/2025 4:56 AM EST [facility] - 01/16/2025 5:22 AM EST OPTIMAL INR RANGES FOR PATIENT ON ORAL ANTICOAGULANT THERAPY Prevention of venous thromboembolism INR 2.0 to 3.0 In patients with heart disease: Atrial fibrillation INR 2.0 to 3.0 Valvular heart disease INR 2.0 to 3.0 Tissue heart valves INR 2.0 to 3.0 Mechanical prosthetic valves INR 2.5 to 3.5 Prevention of recurrent GA INR 2.5 to 3.5 us Maciel Olson MD LAB BLOOD ORDERABLES Final Resul t [facility] [address] [place] [address] * (ABNORMAL) POCT glucose meter (01/15/2025 8:39 PM EST) POCT Glucose 187(H) 74 - 99 mg/dL 01/15/2025 8:41 PM EST [facility] Comment:Accuracy of a [...] for testing. Comment 01/15/2025 8:41 PM EST [facility] Office Sweeper ID Elver Medel 01/15/2025 8:41 PM EST [facility] Device ID [id number] 01/15/2025 8:41 PM EST [facility] Specimen Type POC Capillary 01/15/2025 8:41 PM EST [facility] Blood Capillary blood specimen / Unknown 01/15/2025 8:39 PM EST 01/15/2025 8:41 PM EST Satnam Beckford MD LAB POINT OF CARE T EST DOCKED DEVICE UNSOLICITED RESULTS Final Result Performing Organization Address City/[facility] [address]/ZIP Co de Phone Number [facility] [address] [place] [address] * (ABNORMAL) POCT glucose meter (01/15/2025 5:07 [...] 01/15/2025 5:24 PM EST [facility] Office Sweeper ID Shonda Kimbrough 5:24 PM EST [facility] Device ID [id number] 01/15/2025 5:24 PM EST [facility] Specimen Type POC Capillary 01/15/2025 5:24 PM EST [facility] Blood Capillary blood specimen / Unknown 01/15/2025 5:07 PM EST 01/15/2025 5:24 PM EST Satnam Beckford MD LAB POINT OF CARE T EST DOCKED DEVICE UNSOLICITED RESULTS Final Result Performing Organization Address City/[facility] [address]/ZIP Co de Phone Number [facility] [address] [place] [address] * (ABNORMAL) POCT glucose meter (01/15/2025 11:54 [...] 01/15/2025 11:59 AM EST [facility] Office Sweeper ID Shonda Kimbrough 11:59 AM EST [facility] Device ID [id number] 01/15/2025 11:59 AM EST [facility] Specimen Type POC Capillary 01/15/2025 11:59 AM EST [facility] Blood Capillary blood specimen / Unknown 01/15/2025 11:54 AM EST 01/15/2025 11:59 AM EST Satnam Beckford MD LAB POINT OF CARE T EST DOCKED DEVICE UNSOLICITED RESULTS Final Result Performing Organization Address City/[facility] [address]/ZIP Co de Phone Number [facility] [address] [place] [address] * (ABNORMAL) POCT glucose meter (01/15/2025 7:53 AM EST) [facility] POCT Glucose 159(H) 74 - 99 mg/dL 01/15/2025 7:55 AM EST [facility] Comment:Accuracy of a [...] Comment 01/15/2025 7:55 AM EST [facility] Office Sweeper ID Shonda Kimbrough 7:55 AM EST [facility] Device ID [id number] 01/15/2025 7:55 AM EST [facility] Specimen Type POC Capillary 01/15/2025 7:55 AM EST [facility] Blood Capillary blood specimen / Unknown 01/15/2025 7:53 AM EST 01/15/2025 7:55 AM EST us Satnam Beckford MD LAB POINT OF CARE T EST DOCKED DEVICE UNSOLICITED RESULTS Final Result [facility] [address] [place] [address] * Phosphorus (01/15/2025 5:00 AM EST) [facility] Phosphorus, Plasma 3.5 2.5 - 4.5 mg/dL 01/15/2025 6:15 AM EST [facility] Blood Venous blood specimen / Unknown Venipuncture / Unknown 01/15/2025 5:00 AM EST 01/15/2025 5:24 AM EST us Maciel Olson MD LAB BLOOD ORDERABLES Final Resul t [facility] [address] [place] [address] * Magnesium (01/15/2025 5:00 AM EST) [facility] Magnesium, Plasma 2.1 1.9 - 2.4 mg/dL 01/15/2025 6:15 AM EST [facility] Blood Venous blood specimen / Unknown Venipuncture / Unknown 01/15/2025 5:00 AM EST 01/15/2025 5:24 AM EST us Maciel Olson MD LAB BLOOD ORDERABLES Final Resul t [facility] [address] [place] [address] * (ABNORMAL) Comprehensive metabolic panel (01/15/2025 5:00 AM EST) Glucose, Plasma 164(H) 74 - 99 mg/dL 01/15/2025 6:15 AM EST [facility] BUN, Plasma 39(H) 7 - 21 mg/dL 01/15/2025 6:15 AM EST [facility] Creatinine, Plasma 1.37(H) 0.70 - 1.20 mg/dL 01/15/2025 6:15 AM EST [facility] BUN/Creatinine Ratio 28 01/15/2025 6:15 AM EST [facility] Sodium, Plasma 140 136 - 145 mmol/L 01/15/2025 6:15 AM EST [facility] Potassium, Plasma 4.8 3.6 - 4.9 mmol/L 01/15/2025 6:15 AM EST [facility] Chloride, Plasma 108(H) 97 - 107 mmol/L 01/15/2025 6:15 AM EST [facility] CO2, Plasma 20(L) 22 - 29 mmol/L 01/15/2025 6:15 AM EST [facility] Anion Gap 12 6 - 16 mmol/L 01/15/2025 6:15 AM EST [facility] Total Calcium, Plasma 7.9(L) 8.9 - 10.2 mg/dL 01/15/2025 6:15 AM EST [facility] Total Protein 4.6(L) 6.3 - 7.9 g/dL 01/15/2025 6:15 AM EST [facility] Albumin, Plasma 2.5(L) 3.5 - 5.2 g/dL 01/15/2025 6:15 AM EST [facility] AST, Plasma 21 10 - 50 U/L 01/15/2025 6:15 AM EST [facility] ALT, Plasma 51(H) 10 - 50 U/L 01/15/2025 6:15 AM EST [facility] Alkaline Phosphatase, Plasma 95 40 - 115 U/L 01/15/2025 6:15 AM EST [facility] Total Bilirubin, Plasma 5.6(H) 0.2 - 1.1 mg/dL 01/15/2025 6:15 AM EST [facility] eGFRcr 64.4 mL/min/1.7 3m*2 01/15/2025 6:15 AM EST [facility] Comment:Reported eGFRcr in m L/min/1.73m2 is based the CKD-EPI 2020 equation that does not use a race coefficient. Blood Venous blood specimen / Unknown Venipuncture / Unknown 01/15/2025 5:00 AM EST 01/15/2025 5:24 AM EST us Maciel Olson MD LAB BLOOD ORDERABLES Final Resul t [facility] [address] [place] [address] * (ABNORMAL) CBC W/O Differential (01/15/2025 5:00 AM EST) WBC Count 9.22 3.70 - 10.30 10*3/uL LAB HEMATOLOGY METHOD 01/15/2025 5:24 AM EST [facility] RBC Count 2.63(L) 4.60 - 6.10 10*6/uL LAB HEMATOLOGY METHOD 01/15/2025 5:24 AM EST [facility] HGB 8.2(L) 13.7 - 17.5 g/dL LAB HEMATOLOGY METHOD 01/15/2025 5:24 AM EST [facility] HCT 26.4(L) 40.0 - 51.0 % LAB HEMATOLOGY METHOD 01/15/2025 5:24 AM EST [facility] Platelet Count 94(L) 155 - 369 10*3/uL LAB HEMATOLOGY METHOD 01/15/2025 5:24 AM EST [facility] MCV 100(H) 79 - 98 fL LAB HEMATOLOGY METHOD 01/15/2025 5:24 AM EST [facility] MCH 31.2 26.0 - 32.0 pg LAB HEMATOLOGY METHOD 01/15/2025 5:24 AM EST [facility] MCHC 31.1 30.7 - 35.5 g/dL LAB HEMATOLOGY METHOD 01/15/2025 5:24 AM EST [facility] RDW 24.6(H) 11.5 - 14.5 % LAB HEMATOLOGY METHOD 01/15/2025 5:24 AM EST [facility] MPV 11.2 8.8 - 12.5 fL LAB HEMATOLOGY METHOD 01/15/2025 5:24 AM EST [facility] nRBC 0.0 <=0.0 per 100 WBCs LAB HEMATOLOGY METHOD 01/15/2025 5:24 AM EST [facility] Blood Venous blood specimen / Unknown Venipuncture / Unknown 01/15/2025 5:00 AM EST 01/15/2025 5:16 AM EST Maciel Olson MD LAB BLOOD ORDERABLES Final Resul t Performing Organization Address City/State/[facility] Co de Phone Number [facility] [address] [place] [address] * (ABNORMAL) Prothrombin Time/INR (01/15/2025 5:00 AM EST) Prothrombin Time 15.1(H) 12.0 - 14.3 sec LAB COAGULATION METHOD 01/15/2025 5:49 AM EST [facility] INR 1.2(H) 0.9 - 1.1 LAB COAGULATION METHOD 01/15/2025 5:49 AM EST [facility] Blood Venous blood specimen / Unknown Venipuncture / Unknown 01/15/2025 5:00 AM EST 01/15/2025 5:16 AM EST Narrative [facility] - 01/15/2025 5:49 AM EST OPTIMAL INR RANGES FOR PATIENT ON ORAL ANTICOAGULANT THERAPY Prevention of venous thromboembolism INR 2.0 to 3.0 In patients with heart disease: Atrial fibrillation INR 2.0 to 3.0 Valvular heart disease INR 2.0 to 3.0 Tissue heart valves INR 2.0 to 3.0 Mechanical prosthetic valves INR 2.5 to 3.5 Prevention of recurrent GA INR 2.5 to 3.5 Maciel Olson MD LAB BLOOD ORDERABLES Final Resul t Performing Organization Address [facility] [address]/ZIP Co de Phone Number [facility] [address] [place] [address] * Tacrolimus (01/15/2025 5:00 AM EST) Tacrolimus 7.5 4.0 - 17.0 ng/mL 01/15/2025 8:01 AM EST [facility] Comment: Tacrolimus therapeutic range: Initial (<3 mo.) Maintenance Kidney 8-13 ng/mL 4-8 ng/mL Liver 8-13 ng/mL 4-8 ng/mL Heart 8-15 ng/mL 7-13 ng/mL Lung;Heart/Lung 8-17 ng/mL 8-13 ng/mL Blood Venous blood specimen / Unknown Venipuncture / Unknown 01/15/2025 5:00 AM EST 01/15/2025 5:16 AM EST Narrative [facility] - 01/15/2025 8:01 AM EST Test performed by LC-MS/MS at the [facility]. This test was developed and its performance characteristics determined by [facility]. It has not been cleared or approved by the FDA. The laboratory is regulated under CLIA as qualified to perform high-complexity testing. This test is used for clinical purposes. Test performed by LC-MS/MS at the [facility]. This test was developed and its performance characteristics determined by [facility]. It has not been cleared or approved by the FDA. The laboratory is regulated under CLIA as qualified to perform high-complexity testing. This test is used for clinical purposes. Maciel Olson MD LAB BLOOD ORDERABLES Final Resul t [facility] [address] [place] [address] * (ABNORMAL) POCT glucose meter (01/14/2025 8:25 PM EST) POCT Glucose 182(H) 74 - 99 mg/dL 01/14/2025 8:26 PM EST [facility] Comment:Accuracy of a glucos e result [...] 01/14/2025 8:26 PM EST [facility] Office Sweeper ID Elver Medel 01/14/2025 8:26 PM EST [facility] Device ID [id number] 01/14/2025 8:26 PM EST [facility] Specimen Type POC Capillary 01/14/2025 8:26 PM EST [facility] Blood Capillary blood specimen / Unknown 01/14/2025 8:25 PM EST 01/14/2025 8:26 PM EST Satnam Beckford MD LAB POINT OF CARE T EST DOCKED DEVICE UNSOLICITED RESULTS Final Result Performing Organization Address City/State/[facility] Co de Phone Number [facility] [address] [place] [address] * (ABNORMAL) POCT glucose meter (01/14/2025 5:01 [...] 01/14/2025 5:02 PM EST [facility] Office Sweeper ID Ritu Ma 5:02 PM EST [facility] Device ID [id number] 01/14/2025 5:02 PM EST [facility] Specimen Type POC Capillary 01/14/2025 5:02 PM EST [facility] Blood Capillary blood specimen / Unknown 01/14/2025 5:01 PM EST 01/14/2025 5:02 PM EST Satnam Beckford MD LAB POINT OF CARE T EST DOCKED DEVICE UNSOLICITED RESULTS Final Result Performing Organization Address City/[facility] [address]/ZIP Co de Phone Number [facility] [address] [place] [address] * (ABNORMAL) POCT glucose meter (01/14/2025 11:29 [...] for testing. Comment 01/14/2025 11:31 AM EST [facility] Office Sweeper ID Ritu Ma 11:31 AM EST [facility] Device ID [id number] 01/14/2025 11:31 AM EST [facility] Specimen Type POC Capillary 01/14/2025 11:31 AM EST [facility] Blood Capillary blood specimen / Unknown 01/14/2025 11:29 AM EST 01/14/2025 11:31 AM EST Satnam Beckford MD LAB POINT OF CARE T EST DOCKED DEVICE UNSOLICITED RESULTS Final Result Performing Organization Address City/[facility] [address]/[facility] Co de Phone Number [facility] [address] [place] [address] * (ABNORMAL) POCT glucose meter (01/14/2025 7:59 [...] 01/14/2025 8:00 AM EST [facility] Office Sweeper ID Ritu Ma 8:00 AM EST [facility] Device ID [id number] 01/14/2025 8:00 AM EST [facility] Specimen Type POC Capillary 01/14/2025 8:00 AM EST [facility] Blood Capillary blood specimen / Unknown 01/14/2025 7:59 AM EST 01/14/2025 8:00 AM EST us Satnam Beckford MD LAB POINT OF CARE T EST DOCKED DEVICE UNSOLICITED RESULTS Final Result Performing Organization Address City/[facility] [address]/ZIP Co de Phone Number [facility] [address] [place] [address] * Phosphorus (01/14/2025 4:56 AM EST) Phosphorus, Plasma 3.4 2.5 - 4.5 mg/dL 01/14/2025 5:39 AM EST [facility] Blood Venous blood specimen / Unknown Venipuncture / Unknown 01/14/2025 4:56 AM EST 01/14/2025 5:03 AM EST us Maciel Olson MD LAB BLOOD ORDERABLES Final Resul t Performing Organization Address City/[facility] [address]/ZIP Co de Phone Number [facility] [address] [place] [address] * Magnesium (01/14/2025 4:56 AM EST) Magnesium, Plasma 2.1 1.9 - 2.4 mg/dL 01/14/2025 5:39 AM EST [facility] Blood Venous blood specimen / Unknown Venipuncture / Unknown 01/14/2025 4:56 AM EST 01/14/2025 5:03 AM EST us Maciel Olson MD LAB BLOOD ORDERABLES Final Resul t Performing Organization Address City/[facility] [address]/ZIP Co de Phone Number [facility] [address] [place] [address] * (ABNORMAL) Comprehensive metabolic panel (01/14/2025 4:56 AM EST) Glucose, Plasma 143(H) 74 - 99 mg/dL 01/14/2025 5:39 AM [facility] BUN, Plasma 29(H) 7 - 21 mg/dL 01/14/2025 5:39 AM [facility] Creatinine, Plasma 1.50(H) 0.70 - 1.20 mg/dL 01/14/2025 5:39 AM [facility] BUN/Creatinine Ratio 19 01/14/2025 5:39 AM [facility] Sodium, Plasma 137 136 - 145 mmol/L 01/14/2025 5:39 AM [facility] [facility] Potassium, Plasma 4.6 3.6 - 4.9 mmol/L 01/14/2025 5:39 AM [facility] Chloride, Plasma 107 97 - 107 mmol/L 01/14/2025 5:39 AM [facility] CO2, Plasma 20(L) 22 - 29 mmol/L 01/14/2025 5:39 AM [facility] Anion Gap 10 6 - 16 mmol/L 01/14/2025 5:39 AM [facility] Total Calcium, Plasma 7.6(L) 8.9 - 10.2 mg/dL 01/14/2025 5:39 AM [facility] Total Protein 4.7(L) 6.3 - 7.9 g/dL 01/14/2025 5:39 AM [facility] Albumin, Plasma 2.6(L) 3.5 - 5.2 g/dL 01/14/2025 5:39 AM [facility] AST, Plasma 24 10 - 50 U/L 01/14/2025 5:39 AM [facility] ALT, Plasma 54(H) 10 - 50 U/L 01/14/2025 5:39 AM [facility] Alkaline Phosphatase, Plasma 96 40 - 115 U/L 01/14/2025 5:39 AM [facility] Total Bilirubin, Plasma 8.9(H) 0.2 - 1.1 mg/dL 01/14/2025 5:39 AM [facility] eGFRcr 57.8 mL/min/1.7 3m*2 01/14/2025 5:39 AM [facility] Comment:Reported eGFRcr in m L/min/1.73m2 is based the CKD-EPI 2020 equation that does not use a race coefficient. Blood Venous blood specimen / Unknown Venipuncture / Unknown 01/14/2025 4:56 AM EST 01/14/2025 5:03 AM EST us Maciel Olson MD LAB BLOOD ORDERABLES Final Resul t [facility] [address] [place] [address] * (ABNORMAL) CBC W/O Differential (01/14/2025 4:56 AM EST) WBC Count 5.47 3.70 - 10.30 10*3/uL LAB HEMATOLOGY METHOD 01/14/2025 5:12 AM EST [facility] RBC Count 2.57(L) 4.60 - 6.10 10*6/uL LAB HEMATOLOGY METHOD 01/14/2025 5:12 AM EST [facility] HGB 8.4(L) 13.7 - 17.5 g/dL LAB HEMATOLOGY METHOD 01/14/2025 5:12 AM EST [facility] HCT 25.4(L) 40.0 - 51.0 % LAB HEMATOLOGY METHOD 01/14/2025 5:12 AM EST [facility] Platelet Count 76(L) 155 - 369 10*3/uL LAB HEMATOLOGY METHOD 01/14/2025 5:12 AM EST [facility] MCV 99(H) 79 - 98 fL LAB HEMATOLOGY METHOD 01/14/2025 5:12 AM EST [facility] MCH 32.7(H) 26.0 - 32.0 pg LAB HEMATOLOGY METHOD 01/14/2025 5:12 AM EST [facility] MCHC 33.1 30.7 - 35.5 g/dL LAB HEMATOLOGY METHOD 01/14/2025 5:12 AM EST [facility] RDW 23.9(H) 11.5 - 14.5 % LAB HEMATOLOGY METHOD 01/14/2025 5:12 AM EST [facility] MPV 11.3 8.8 - 12.5 fL LAB HEMATOLOGY METHOD 01/14/2025 5:12 AM EST [facility] nRBC 0.0 <=0.0 per 100 WBCs LAB HEMATOLOGY METHOD 01/14/2025 5:12 AM EST [facility] Blood Venous blood specimen / Unknown Venipuncture / Unknown 01/14/2025 4:56 AM EST 01/14/2025 5:02 AM EST Maciel Olson MD LAB BLOOD ORDERABLES Final Resul t Performing Organization Address City/[facility] [address]/ZIP Co de Phone Number [facility] [address] [place] [address] * (ABNORMAL) Prothrombin Time/INR (01/14/2025 4:56 AM EST) Prothrombin Time 15.0(H) 12.0 - 14.3 sec LAB COAGULATION METHOD 01/14/2025 5:24 AM EST [facility] INR 1.2(H) 0.9 - 1.1 LAB COAGULATION METHOD 01/14/2025 5:24 AM EST [facility] Blood Venous blood specimen / Unknown Venipuncture / Unknown 01/14/2025 4:56 AM EST 01/14/2025 5:02 AM EST Narrative [facility] - 01/14/2025 5:24 AM EST OPTIMAL INR RANGES FOR PATIENT ON ORAL ANTICOAGULANT THERAPY Prevention of venous thromboembolism INR 2.0 to 3.0 In patients with heart disease: Atrial fibrillation INR 2.0 to 3.0 Valvular heart disease INR 2.0 to 3.0 Tissue heart valves INR 2.0 to 3.0 Mechanical prosthetic valves INR 2.5 to 3.5 Prevention of recurrent GA INR 2.5 to 3.5 us Maciel Olson MD LAB BLOOD ORDERABLES Final Resul t [facility] [address] [place] [address] * Tacrolimus (01/14/2025 4:56 AM EST) Tacrolimus 8.1 4.0 - 17.0 ng/mL 01/14/2025 8:11 AM EST [facility] Blood Venous blood specimen / Unknown Venipuncture / Unknown 01/14/2025 4:56 AM EST 01/14/2025 5:02 AM EST Narrative [facility] - 01/14/2025 8:11 AM EST Test performed by LC-MS/MS at the [facility]. This test was developed and its performance characteristics determined by [facility]. It has not been cleared or approved by the FDA. The laboratory is regulated under CLIA as qualified to perform high-complexity testing. This test is used for clinical purposes. Test performed by LC-MS/MS at the [facility]. This test was developed and its performance characteristics determined by [facility]. It has not been cleared or approved by the FDA. The laboratory is regulated under CLIA as qualified to perform high-complexity testing. This test is used for clinical purposes. Maciel Olson MD LAB BLOOD ORDERABLES Final Resul t [facility] [address] [place] [address] * (ABNORMAL) POCT glucose meter (01/13/2025 7:34 PM EST) POCT Glucose 199(H) 74 - 99 mg/dL 01/13/2025 7:36 PM EST [facility] Comment:Accuracy of a glucos e result [...] for testing. Comment 01/13/2025 7:36 PM EST [facility] Office Sweeper ID Katarina Nowak 01/14/20 25 7:36 PM EST [facility] Device ID [id number] 01/13/2025 7:36 PM EST [facility] Specimen Type POC Capillary 01/13/2025 7:36 PM EST [facility] Blood Capillary blood specimen / Unknown 01/13/2025 7:34 PM EST 01/13/2025 7:36 PM EST Satnam Beckford MD LAB POINT OF CARE T EST DOCKED DEVICE UNSOLICITED RESULTS Final Result Performing Organization Address City/[facility] [address]/[facility] Co de Phone Number [facility] [address] [place] [address] * (ABNORMAL) POCT glucose meter (01/13/2025 6:12 [...] Comment 01/13/2025 6:14 PM EST [facility] Office Sweeper ID Tila Garcia 6:14 PM EST [facility] Device ID [id number] 01/13/2025 6:14 PM EST [facility] Specimen Type POC Capillary 01/13/2025 6:14 PM EST [facility] Blood Capillary blood specimen / Unknown 01/13/2025 6:12 PM EST 01/13/2025 6:14 PM EST Satnam Beckford MD LAB POINT OF CARE T EST DOCKED DEVICE UNSOLICITED RESULTS Final Result Performing Organization Address City/[facility] [address]/[facility] de Phone Number [facility] [address] [place] [address] * US Guided Needle Biopsy Liver (01/13/2025 [...] transplant with elevated LFTs and hyperbilirubinemia. TECHNIQUE: Crown Pouncer: Ghislaine Borges APRN Secondary Office Sweeper: None. Medications: IV conscious sedation with continuous physiologic monitoring provided by a qualified healthcare professional using Versed 1 mg IV and Fentanyl 50mcg IV. 1% Lidocaine SQ. Antibiotics: N/A Duration of Conscious Sedation: Time out: 3375 Procedure: After discussion of risks and benefits, [...] liver transplant with elevated LFTs andhyperbilirubinemia. TECHNIQUE: Crown Pouncer: Ghislaine Borges APRN Secondary Office Sweeper: None. Medications: IV conscious sedation with continuous physiologic monitoringprovided by a qualified healthcare professional using Versed 1 mg IV andFentanyl 50mcg IV. 1% Lidocaine SQ. Antibiotics: N/A Duration of Conscious Sedation: Time out: 7138 Procedure: After discussion of risks and benefits, [...] PM EST) Case Report Surgical Pathology Case: [id number] Authorizing Provider: Satnam Beckford MD Collected: 01/13/2025 1616 Ordering Location: [facility] Inpatient Received: 01/13/2025 3916 Pathologist: Danny Pichardo MD Specimen: Liver 5:27 PM [facility] Final Diagnosis A. LIVER, ALLOGRAFT, CORE NEEDLE BIOPSY: - ACUTE CHOLANGITIS WITH ASSOCIATED CHOLESTASIS. - ACUTE CELLULAR REJECTION WITH TREATMENT EFFECT. - SEE COMMENT AND MICROSCOPIC DESCRIPTION. 5:27 PM [facility] at 1727 EST Comment Preliminary results were communicated to Dr. Beckford, via e-mail by Dr. Pichardo on 01/14/2025. 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 5:27 PM [facility] Special and Immunohistochemical Stains Special Stain: A1-4 Michael Trichrome Stain: performed and interpreted. IHC: A1-5 CMV: negative staining. A1-6 CK7: performed and interpreted. A2-2 CMV: negative staining. A2-3 CK7: performed and interpreted. All controls show appropriate reactivity. All immunohistochemist ry, in situ hybridization, and histochemical tests were developed by and are performed at the [facility], [address] [place] [address]. All tests reported here, except those addressing [...] on decalcified specimens. 5 5:27 PM EST [facility] Gross Description A. LIVER Received in formalin labeled l iver , are 3 yellow-green soft tissue cores that range from 1.4-1.6 cm in length and up to 0.1 cm in diameter. Entirely submitted in cassettes A1 to A2. Cold Time: 0 Adilene Ruth Levine 5 5:27 PM EST [facility] Note: A resident was involved in the service. I attest I examined the relevant preparations for the specimens and confirmed the diagnosis or interpretation. 5 5:27 PM EST [facility] Tissue Liver structure / Unknown Non-blood Collection / Unknown 01/13/2025 4:16 PM EST 01/13/2025 4:59 PM EST Comment:TAVERA path please us Satnam Beckford MD LAB PATHOLOGY ORDERABLES Fi nal Result [facility] [address] [place] [address] * (ABNORMAL) POCT glucose meter (01/13/2025 11:10 AM EST) POCT Glucose 116(H) 74 - 99 mg/dL 01/13/2025 11:12 AM EST [facility] Comment:Accuracy of a glucos [...] for testing. Comment 01/13/2025 11:12 AM EST [facility] Office Sweeper ID Tila Garcia 11:12 AM EST [facility] Device ID [id number] 01/13/2025 11:12 AM EST [facility] Specimen Type POC Capillary 01/13/2025 11:12 AM EST [facility] Blood Capillary blood specimen / Unknown 01/13/2025 11:10 AM EST 01/13/2025 11:12 AM EST Satnam Beckford MD LAB POINT OF CARE T EST DOCKED DEVICE UNSOLICITED RESULTS Final Result Performing Organization Address [facility] Co de Phone Number [facility] [address] [place] [address] * Herpes Simplex Virus by PCR (Serum) (01/13/2025 10:59 AM EST) Herpes Simplex Virus 1 (HSV-1) PCR Result Not Detected Not Detected 01/14/2025 2:21 PM EST [facility] Herpes Simplex Virus 2 (HSV-2) PCR Result Not Detected Not Detected 01/14/2025 2:21 PM EST [facility] Serum Venous blood specimen / Unknown 01/13/2025 10:59 AM EST 01/13/2025 1:47 PM EST Narrative [facility] - 01/14/2025 2:21 PM EST This PCR assay was developed and its performance characteristics determined by [facility] as appropriate for clinical purposes. This assay has not been cleared or approved by the FDA, but is performed in a CLIA regulated laboratory that is qualified to perform high-complexity testing. Satnam Beckford MD LAB MICROBIOLOGY - GENERAL ORDERABLES Final Result Performing Organization Address [facility] [address]/[facility] Co de Phone Number [facility] [address] [place] [address] * Shailesh Suárez Virus (EBV) Quantitative PCR (01/13/2025 10:59 AM EST) Shailesh Suárez Virus, Blood, Quant DNA Interpretation Not Detected Not Detected 01/14/2025 8:41 AM EST [facility] Blood Venous blood specimen / Unknown Venipuncture / Unknown 01/13/2025 10:59 AM EST 01/13/2025 11:13 AM EST Narrative [facility] - 01/14/2025 8:41 AM EST EBV [...] developed and it's performance characteristics determined by [facility] as appropriate for clinical purposes. [...] developed and it's performance characteristics determined by [facility] as appropriate for clinical purposes. This assay has not been cleared or approved by the FDA, but is performed in a CLIA regulated laboratory that is qualified to perform high-complexity testing. Satnam Beckford MD LAB BLOOD ORDERABLES Final Result [facility] [address] [place] [address] * Cytomegalovirus (CMV) Quantitative PCR (01/13/2025 10:59 AM EST) [facility] Cytomegalovirus (CMV) Quantitative Interpretation Not Detected Not Detected 01/14/2025 2:52 PM EST [facility] Blood Venous blood specimen / Unknown Venipuncture / Unknown 01/13/2025 10:59 AM EST 01/13/2025 11:13 AM EST Narrative [facility] - 01/14/2025 2:52 PM EST [facility] M2000 CMV test is a Real Time [...] Beckford MD LAB BLOOD ORDERABLES Final Result [facility] [address] [place] [address] * POCT glucose meter (01/13/2025 8:20 AM EST) [facility] POCT Glucose 97 74 - 99 mg/dL 01/13/2025 8:21 AM EST [facility] Comment:Accuracy of a glucos e result [...] for testing. Comment 01/13/2025 8:21 AM EST [facility] Office Sweeper ID Tila Garcia 8:21 AM EST [facility] Device ID [id number] 01/13/2025 8:21 AM EST [facility] Specimen Type POC Capillary 01/13/2025 8:21 AM EST [facility] Blood Capillary blood specimen / Unknown 01/13/2025 8:20 AM EST 01/13/2025 8:21 AM EST Satnam Beckford MD LAB POINT OF CARE T EST DOCKED DEVICE UNSOLICITED RESULTS Final Result Performing Organization Address City/[facility] [address]/[facility] de Phone Number [facility] [address] [place] [address] * (ABNORMAL) POCT glucose meter (01/13/2025 6:36 AM EST) POCT Glucose 116(H) 74 - [...] for testing. Comment 01/13/2025 6:38 AM EST [facility] Office Sweeper ID Andreina Hester 01/13/2025 6:38 AM EST [facility] Device ID [id number] 01/13/2025 6:38 AM EST [facility] Specimen Type POC Capillary 01/13/2025 6:38 AM EST [facility] Blood Capillary blood specimen / Unknown 01/13/2025 6:36 AM EST 01/13/2025 6:38 AM EST Satnam Beckford MD LAB POINT OF CARE T EST DOCKED DEVICE UNSOLICITED RESULTS Final Result Performing Organization Address City/[facility] [address]/[facility] Co de Phone Number [facility] [address] [place] [address] * POCT glucose meter (01/13/2025 5:52 AM [...] Comment 01/13/2025 5:54 AM EST [facility] Office Sweeper ID Andreina Hester 01/13/2025 5:54 AM EST [facility] Device ID [id number] 01/13/2025 5:54 AM EST [facility] Specimen Type POC Capillary 01/13/2025 5:54 AM EST [facility] Blood Capillary blood specimen / Unknown 01/13/2025 5:52 AM EST 01/13/2025 5:54 AM EST us Satnam Beckford MD LAB POINT OF CARE T EST DOCKED DEVICE UNSOLICITED RESULTS Final Result Performing Organization Address City/[facility] [address]/ZIP Co de Phone Number [facility] [address] [place] [address] * (ABNORMAL) Bilirubin, direct (01/13/2025 4:43 AM EST) Direct Bilirubin, Plasma 8.3(H) <=0.3 mg/dL 01/13/2025 11:13 AM EST [facility] Blood Venous blood specimen / Unknown Venipuncture / Unknown 01/13/2025 4:43 AM EST 01/13/2025 4:51 AM EST us Félix Simmons APRN, PATTI LAB BLOOD ORDERA BLES Final Result Performing Organization Address City/[facility] [address]/ZIP Co de Phone Number [facility] [address] [place] [address] * Phosphorus (01/13/2025 4:43 AM EST) Phosphorus, Plasma 3.3 2.5 - 4.5 mg/dL 01/13/2025 5:21 AM EST [facility] Blood Venous blood specimen / Unknown Venipuncture / Unknown 01/13/2025 4:43 AM EST 01/13/2025 4:51 AM EST us Maciel Olson MD LAB BLOOD ORDERABLES Final Resul t [facility] [address] [place] [address] * Magnesium (01/13/2025 4:43 AM EST) Magnesium, Plasma 2.1 1.9 - 2.4 mg/dL 01/13/2025 5:21 AM EST [facility] Blood Venous blood specimen / Unknown Venipuncture / Unknown 01/13/2025 4:43 AM EST 01/13/2025 4:51 AM EST us Maciel Olson MD LAB BLOOD ORDERABLES Final Resul t [facility] [address] [place] [address] * (ABNORMAL) Comprehensive metabolic panel (01/13/2025 4:43 AM EST) Glucose, Plasma 88 74 - 99 mg/dL 01/13/2025 5:21 AM EST [facility] BUN, Plasma 26(H) 7 - 21 mg/dL 01/13/2025 5:21 AM EST [facility] Creatinine, Plasma 1.73(H) 0.70 - 1.20 mg/dL 01/13/2025 5:21 AM EST [facility] BUN/Creatinine Ratio 15 01/13/2025 5:21 AM EST [facility] Sodium, Plasma 138 136 - 145 mmol/L 01/13/2025 5:21 AM EST [facility] Potassium, Plasma 3.9 3.6 - 4.9 mmol/L 01/13/2025 5:21 AM EST [facility] Chloride, Plasma 105 97 - 107 mmol/L 01/13/2025 5:21 AM EST [facility] CO2, Plasma 21(L) 22 - 29 mmol/L 01/13/2025 5:21 AM EST [facility] Anion Gap 12 6 - 16 mmol/L 01/13/2025 5:21 AM EST [facility] Total Calcium, Plasma 7.7(L) 8.9 - 10.2 mg/dL 01/13/2025 5:21 AM EST [facility] Total Protein 4.5(L) 6.3 - 7.9 g/dL 01/13/2025 5:21 AM EST [facility] Albumin, Plasma 2.4(L) 3.5 - 5.2 g/dL 01/13/2025 5:21 AM EST [facility] AST, Plasma 28 10 - 50 U/L 01/13/2025 5:21 AM EST [facility] ALT, Plasma 60(H) 10 - 50 U/L 01/13/2025 5:21 AM EST [facility] Alkaline Phosphatase, Plasma 103 40 - 115 U/L 01/13/2025 5:21 AM EST [facility] Total Bilirubin, Plasma 11.0(H) 0.2 - 1.1 mg/dL 01/13/2025 5:21 AM EST [facility] eGFRcr 48.7 mL/min/1.7 3m*2 01/13/2025 5:21 AM EST [facility] Comment:Reported eGFRcr in m L/min/1.73m2 is based the CKD-EPI 2020 equation that does not use a race coefficient. Blood Venous blood specimen / Unknown Venipuncture / Unknown 01/13/2025 4:43 AM EST 01/13/2025 4:51 AM EST us Maciel Olson MD LAB BLOOD ORDERABLES Final Resul t [facility] [address] [place] [address] * (ABNORMAL) CBC W/O Differential (01/13/2025 4:43 AM EST) WBC Count 5.82 3.70 - 10.30 10*3/uL LAB HEMATOLOGY METHOD 01/13/2025 4:59 AM EST [facility] RBC Count 2.61(L) 4.60 - 6.10 10*6/uL LAB HEMATOLOGY METHOD 01/13/2025 4:59 AM EST [facility] HGB 8.5(L) 13.7 - 17.5 g/dL LAB HEMATOLOGY METHOD 01/13/2025 4:59 AM EST [facility] HCT 25.6(L) 40.0 - 51.0 % LAB HEMATOLOGY METHOD 01/13/2025 4:59 AM EST [facility] Platelet Count 54(L) 155 - 369 10*3/uL LAB HEMATOLOGY METHOD 01/13/2025 4:59 AM EST [facility] MCV 98 79 - 98 fL LAB HEMATOLOGY METHOD 01/13/2025 4:59 AM EST [facility] MCH 32.6(H) 26.0 - 32.0 pg LAB HEMATOLOGY METHOD 01/13/2025 4:59 AM EST [facility] MCHC 33.2 30.7 - 35.5 g/dL LAB HEMATOLOGY METHOD 01/13/2025 4:59 AM EST [facility] RDW 23.8(H) 11.5 - 14.5 % LAB HEMATOLOGY METHOD 01/13/2025 4:59 AM EST [facility] MPV 11.0 8.8 - 12.5 fL LAB HEMATOLOGY METHOD 01/13/2025 4:59 AM EST [facility] nRBC 0.0 <=0.0 per 100 WBCs LAB HEMATOLOGY METHOD 01/13/2025 4:59 AM EST [facility] Blood Venous blood specimen / Unknown Venipuncture / Unknown 01/13/2025 4:43 AM EST 01/13/2025 4:49 AM EST us Maciel Olson MD LAB BLOOD ORDERABLES Final Resul t [facility] [address] [place] [address] * (ABNORMAL) Prothrombin Time/INR (01/13/2025 4:43 AM EST) Prothrombin Time 14.6(H) 12.0 - 14.3 sec LAB COAGULATION METHOD 01/13/2025 5:18 AM EST [facility] INR 1.1 0.9 - 1.1 LAB COAGULATION METHOD 01/13/2025 5:18 AM EST [facility] Blood Venous blood specimen / Unknown Venipuncture / Unknown 01/13/2025 4:43 AM EST 01/13/2025 4:51 AM EST Narrative [facility] - 01/13/2025 5:18 AM EST OPTIMAL INR RANGES FOR PATIENT ON ORAL ANTICOAGULANT THERAPY Prevention of venous thromboembolism INR 2.0 to 3.0 In patients with heart disease: Atrial fibrillation INR 2.0 to 3.0 Valvular heart disease INR 2.0 to 3.0 Tissue heart valves INR 2.0 to 3.0 Mechanical prosthetic valves INR 2.5 to 3.5 Prevention of recurrent GA INR 2.5 to 3.5 Maciel Olson MD LAB BLOOD ORDERABLES Final Resul t Performing Organization Address [facility] [address]/[facility] Co de Phone Number [facility] [address] [place] [address] * Tacrolimus (01/13/2025 4:43 AM EST) Tacrolimus 8.2 4.0 - 17.0 ng/mL 01/13/2025 8:17 AM EST [facility] Blood Venous blood specimen / Unknown Venipuncture / Unknown 01/13/2025 4:43 AM EST 01/13/2025 4:49 AM EST Narrative [facility] - 01/13/2025 8:17 AM EST Test performed by LC-MS/MS at the [facility]. This test was developed and its performance characteristics determined by [facility]. It has not been cleared or approved by the FDA. The laboratory is regulated under CLIA as qualified to perform high-complexity testing. This test is used for clinical purposes. Test performed by LC-MS/MS at the [facility]. This test was developed and its performance characteristics determined by [facility]. It has not been cleared or approved by the FDA. The laboratory is regulated under CLIA as qualified to perform high-complexity testing. This test is used for clinical purposes. Maciel Olson MD LAB BLOOD ORDERABLES Final Resul t Performing Organization Address City/[facility] [address]/ZIP Co de Phone Number [facility] [address] [place] [address] * POCT glucose meter (2025 7:24 PM EST) POCT Glucose 98 74 - 99 mg/dL 2025 7:26 PM EST [facility] Comment:Accuracy of a glucos [...] for testing. Comment 2025 7:26 PM EST [facility] Office Sweeper ID Katarina Nowak 01/13/20 7:26 PM EST [facility] Device ID [id number] 2025 7:26 PM EST [facility] Specimen Type POC Capillary 2025 7:26 PM EST [facility] Blood Capillary blood specimen / Unknown 2025 7:24 PM EST 2025 7:26 PM EST Satnam Beckford MD LAB POINT OF CARE T EST DOCKED DEVICE UNSOLICITED RESULTS Final Result Performing Organization Address City/State/[facility] Co de Phone Number [facility] [address] [place] [address] * (ABNORMAL) POCT glucose meter (2025 5:10 PM EST) [facility] POCT Glucose 134(H) 74 - 99 mg/dL 2025 5:12 PM EST [facility] Comment:Accuracy of a glucos [...] Comment 2025 5:12 PM EST [facility] Office Sweeper ID Ritu Ma 5:12 PM EST [facility] Device ID [id number] 2025 5:12 PM EST [facility] Specimen Type POC Capillary 2025 5:12 PM EST [facility] Blood Capillary blood specimen / Unknown 2025 5:10 PM EST 2025 5:12 PM EST Satnam Beckford MD LAB POINT OF CARE T EST DOCKED DEVICE UNSOLICITED RESULTS Final Result Performing Organization Address [facility] [address] [facility] Co de Phone Number [facility] [address] [place] [address] * (ABNORMAL) POCT glucose meter (2025 2:13 PM EST) [facility] POCT Glucose 110(H) 74 - [...] 2025 2:15 PM EST [facility] Office Sweeper ID Sushant Dominic 2025 2:15 PM EST [facility] Device ID [id number] 2025 2:15 PM EST [facility] Specimen Type POC Capillary 2025 2:15 PM EST [facility] Blood Capillary blood specimen / Unknown 2025 2:13 PM EST 2025 2:15 PM EST Satnam Beckford MD LAB POINT OF CARE T EST DOCKED DEVICE UNSOLICITED RESULTS Final Result Performing Organization Address [facility] [address]/[facility] Co de Phone Number [facility] [address] [place] [address] * (ABNORMAL) POCT glucose meter (2025 1:32 PM EST) [facility] POCT Glucose 137(H) 74 - [...] 2025 2:08 PM EST [facility] Office Sweeper ID Rodney Vázquez 12/01/2 025 2:08 PM EST [facility] Device ID [id number] 2025 2:08 PM EST [facility] Specimen Type POC Capillary 2025 2:08 PM EST [facility] Blood Capillary blood specimen / Unknown 2025 1:32 PM EST 2025 2:08 PM EST Satnam Beckford MD LAB POINT OF CARE T EST DOCKED DEVICE UNSOLICITED RESULTS Final Result Performing Organization Address City/[facility] [address]/[facility] Co de Phone Number [facility] [address] [place] [address] * POCT glucose meter (2025 1:08 PM EST) [facility] Signature POCT Glucose 88 74 - 99 mg/dL 2025 1:10 PM EST [facility] Comment:Accuracy of a [...] for testing. Comment 2025 1:10 PM EST [facility] Office Sweeper ID Rodney Vázquez 025 1:10 PM EST [facility] Device ID [id number] 2025 1:10 PM EST [facility] Specimen Type POC Capillary 2025 1:10 PM EST [facility] Blood Capillary blood specimen / Unknown 2025 1:08 PM EST 2025 1:10 PM EST Satnam Beckford MD LAB POINT OF CARE T EST DOCKED DEVICE UNSOLICITED RESULTS Final Result Performing Organization Address City/[facility] [address]/[facility] Co de Phone Number [facility] [address] [place] [address] * FL ERC (2025 12:59 PM EST) Narrative IMAGING - 2025 2:38 PM EST Images were obtained for surgical purposes. See Parmjit Garcia's surgical note in the patient's chart for the findings. us Parmjit Garcia MD IMG FLUOROSCOPY PROCEDURES Fin [...] administered medications. Staff Staff Role Stephens-Florencio Kearns, DEMETRIA Endo Nurse Yari Henderson RN Endo Nurse Da De MD Anesthesiologist Bethany Ayers CRNA CRNA Plentz, Ruben R, MD Proceduralist Yi Reese Endo Otolaryngology Surgeon Rell Vivas MD Proceduralist Preprocedure A history [...] and ampullary region appeared normal. ERCP: The crop scout film showed manju. The duodenoscope was passed under direct vision through the mouth and advanced to the second portion of the duodenum. The major papilla was visualized. The major papilla was inaja. Endo-biliary stent placed during transplant no longer [...] - 99 mg/dL 2025 8:37 AM EST [facility] Comment:Accuracy of a glucos e result [...] 2025 8:37 AM EST [facility] Office Sweeper ID Dominic Canchola 2025 8:37 AM EST [facility] Device ID [id number] 2025 8:37 AM EST [facility] Specimen Type POC Capillary 2025 8:37 AM EST [facility] Blood Capillary blood specimen / Unknown 2025 8:35 AM EST 2025 8:37 AM EST us Satnam Beckford MD LAB POINT OF CARE T EST DOCKED DEVICE UNSOLICITED RESULTS Final Result Performing Organization Address City/[facility] [address]/ZIP Co de Phone Number [facility] [address] [place] [address] * POCT glucose meter (2025 7:50 AM EST) [facility] POCT Glucose 84 74 - 99 mg/dL 2025 7:52 AM EST [facility] Comment:Accuracy of a glucos [...] Comment 2025 7:52 AM EST [facility] Office Sweeper ID Dominic Canchola 2025 7:52 AM EST [facility] Device ID [id number] 2025 7:52 AM EST [facility] Specimen Type POC Capillary 2025 7:52 AM EST [facility] Blood Capillary blood specimen / Unknown 2025 7:50 AM EST 2025 7:52 AM EST us Maciel Olson MD LAB POINT OF CARE TE ST DOCKED DEVICE UNSOLICITED RESULTS Final Result Performing Organization Address City/[facility] [address]/ZIP Co de Phone Number [facility] [address] [place] [address] * (ABNORMAL) POCT glucose meter (2025 6:53 [...] 2025 6:54 AM EST [facility] Office Sweeper ID Vida Garcia 2025 6:54 AM EST [facility] Device ID [id number] 2025 6:54 AM EST [facility] Specimen Type POC Capillary 2025 6:54 AM EST [facility] Blood Capillary blood specimen / Unknown 2025 6:53 AM EST 2025 6:54 AM EST Maciel Olson MD LAB POINT OF CARE TE ST DOCKED DEVICE UNSOLICITED RESULTS Final Result Performing Organization Address City/State/[facility] Co de Phone Number [facility] [address] [place] [address] * POCT glucose meter (2025 6:13 AM [...] 2025 6:14 AM EST [facility] Office Sweeper ID Daylin Mckeon 2025 6:14 AM EST [facility] Device ID [id number] 2025 6:14 AM EST [facility] Specimen Type POC Capillary 2025 6:14 AM EST [facility] Blood Capillary blood specimen / Unknown 2025 6:13 AM EST 2025 6:14 AM EST us Maciel Olson MD LAB POINT OF CARE TE ST DOCKED DEVICE UNSOLICITED RESULTS Final Result Performing Organization Address City/[facility] [address]/[facility] de Phone Number [facility] [address] [place] [address] * POCT glucose meter (2025 5:53 AM EST) POCT Glucose 79 74 - 99 mg/dL 2025 5:55 AM EST [facility] Comment:Accuracy of a [...] for testing. Comment 2025 5:55 AM EST [facility] Office Sweeper ID Vida Garcia 2025 5:55 AM EST [facility] Device ID [id number] 2025 5:55 AM EST [facility] Specimen Type POC Capillary 2025 5:55 AM EST [facility] Blood Capillary blood specimen / Unknown 2025 5:53 AM EST 2025 5:55 AM EST us Maciel Olson MD LAB POINT OF CARE TE ST DOCKED DEVICE UNSOLICITED RESULTS Final Result Performing Organization Address City/[facility] [address]/[facility] Co de Phone Number [facility] [address] [place] [address] * Phosphorus (2025 4:51 AM EST) Phosphorus, Plasma 2.9 2.5 - 4.5 mg/dL 2025 5:25 AM EST [facility] Blood Venous blood specimen / Unknown Venipuncture / Unknown 2025 4:51 AM EST 2025 4:57 AM EST us Maciel Olson MD LAB BLOOD ORDERABLES Final Resul t [facility] [address] [place] [address] * Magnesium (2025 4:51 AM EST) Magnesium, Plasma 2.2 1.9 - 2.4 mg/dL 2025 5:25 AM EST [facility] Blood Venous blood specimen / Unknown Venipuncture / Unknown 2025 4:51 AM EST 2025 4:57 AM EST Maciel Olson MD LAB BLOOD ORDERABLES Final Resul t Performing Organization Address City/[facility] [address]/ZIP Co de Phone Number [facility] [address] [place] [address] * (ABNORMAL) Comprehensive metabolic panel (2025 4:51 AM EST) Glucose, Plasma 76 74 - 99 mg/dL 2025 5:25 AM EST [facility] BUN, Plasma 26(H) 7 - 21 mg/dL 2025 5:25 AM EST [facility] Creatinine, Plasma 1.26(H) 0.70 - 1.20 mg/dL 2025 5:25 AM EST [facility] BUN/Creatinine Ratio 21 2025 5:25 AM EST [facility] Sodium, Plasma 133(L) 136 - 145 mmol/L 2025 5:25 AM EST [facility] Potassium, Plasma 3.6 3.6 - 4.9 mmol/L 2025 5:25 AM EST [facility] Chloride, Plasma 102 97 - 107 mmol/L 2025 5:25 AM EST [facility] CO2, Plasma 23 22 - 29 mmol/L 2025 5:25 AM EST [facility] Anion Gap 8 6 - 16 mmol/L 2025 5:25 AM EST [facility] Total Calcium, Plasma 7.6(L) 8.9 - 10.2 mg/dL 2025 5:25 AM EST [facility] Total Protein 4.3(L) 6.3 - 7.9 g/dL 2025 5:25 AM EST [facility] Albumin, Plasma 2.6(L) 3.5 - 5.2 g/dL 2025 5:25 AM EST [facility] AST, Plasma 22 10 - 50 U/L 2025 5:25 AM EST [facility] ALT, Plasma 70(H) 10 - 50 U/L 2025 5:25 AM EST [facility] Alkaline Phosphatase, Plasma 107 40 - 115 U/L 2025 5:25 AM EST [facility] Total Bilirubin, Plasma 10.4(H) 0.2 - 1.1 mg/dL 2025 5:25 AM EST [facility] eGFRcr 71.2 mL/min/1.7 3m*2 2025 5:25 AM EST [facility] Comment:Reported eGFRcr in m L/min/1.73m2 is based the CKD-EPI 2020 equation that does not use a race coefficient. Blood Venous blood specimen / Unknown Venipuncture / Unknown 2025 4:51 AM EST 2025 4:57 AM EST us Maciel Olson MD LAB BLOOD ORDERABLES Final Resul t [facility] [address] [place] [address] * (ABNORMAL) CBC W/O Differential (2025 4:51 AM EST) WBC Count 5.23 3.70 - 10.30 10*3/uL LAB HEMATOLOGY METHOD 2025 5:10 AM EST [facility] RBC Count 2.49(L) 4.60 - 6.10 10*6/uL LAB HEMATOLOGY METHOD 2025 5:10 AM EST [facility] HGB 8.1(L) 13.7 - 17.5 g/dL LAB HEMATOLOGY METHOD 2025 5:10 AM EST [facility] HCT 24.3(L) 40.0 - 51.0 % LAB HEMATOLOGY METHOD 2025 5:10 AM EST [facility] Platelet Count 45(L) 155 - 369 10*3/uL LAB HEMATOLOGY METHOD 2025 5:10 AM EST [facility] MCV 98 79 - 98 fL LAB HEMATOLOGY METHOD 2025 5:10 AM EST [facility] MCH 32.5(H) 26.0 - 32.0 pg LAB HEMATOLOGY METHOD 2025 5:10 AM EST [facility] MCHC 33.3 30.7 - 35.5 g/dL LAB HEMATOLOGY METHOD 2025 5:10 AM EST [facility] RDW 23.5(H) 11.5 - 14.5 % LAB HEMATOLOGY METHOD 2025 5:10 AM EST [facility] MPV 10.7 8.8 - 12.5 fL LAB HEMATOLOGY METHOD 2025 5:10 AM EST [facility] nRBC 0.0 <=0.0 per 100 WBCs LAB HEMATOLOGY METHOD 2025 5:10 AM EST [facility] Blood Venous blood specimen / Unknown Venipuncture / Unknown 2025 4:51 AM EST 2025 4:57 AM EST us Maciel Olson MD LAB BLOOD ORDERABLES Final Resul t [facility] [address] [place] [address] * (ABNORMAL) Prothrombin Time/INR (2025 4:51 AM EST) Prothrombin Time 15.1(H) 12.0 - 14.3 sec LAB COAGULATION METHOD 2025 5:18 AM EST [facility] INR 1.2(H) 0.9 - 1.1 LAB COAGULATION METHOD 2025 5:18 AM EST [facility] Blood Venous blood specimen / Unknown Venipuncture / Unknown 2025 4:51 AM EST 2025 4:58 AM EST Narrative [facility] - 2025 5:18 AM EST OPTIMAL INR RANGES FOR PATIENT ON ORAL ANTICOAGULANT THERAPY Prevention of venous thromboembolism INR 2.0 to 3.0 In patients with heart disease: Atrial fibrillation INR 2.0 to 3.0 Valvular heart disease INR 2.0 to 3.0 Tissue heart valves INR 2.0 to 3.0 Mechanical prosthetic valves INR 2.5 to 3.5 Prevention of recurrent GA INR 2.5 to 3.5 Maciel Olson MD LAB BLOOD ORDERABLES Final Resul t [facility] [address] [place] [address] * Tacrolimus (2025 4:51 AM EST) Tacrolimus 5.8 4.0 - 17.0 ng/mL 2025 12:28 PM EST [facility] Comment: Tacrolimus therapeutic range: Initial (<3 mo.) Maintenance Kidney 8-13 ng/mL 4-8 ng/mL Liver 8-13 ng/mL 4-8 ng/mL Heart 8-15 ng/mL 7-13 ng/mL Lung;Heart/Lung 8-17 ng/mL 8-13 ng/mL Blood Venous blood specimen / Unknown Venipuncture / Unknown 2025 4:51 AM EST 2025 4:57 AM EST Narrative [facility] - 2025 12:28 PM EST Test performed by LC-MS/MS at the [facility]. This test was developed and its performance characteristics determined by [facility]. It has not been cleared or approved by the FDA. The laboratory is regulated under CLIA as qualified to perform high-complexity testing. This test is used for clinical purposes. Test performed by LC-MS/MS at the [facility]. This test was developed and its performance characteristics determined by [facility]. It has not been cleared or approved by the FDA. The laboratory is regulated under CLIA as qualified to perform high-complexity testing. This test is used for clinical purposes. Maciel Olson MD LAB BLOOD ORDERABLES Final Resul t Performing Organization Address City/[facility] [address]/ZIP Co de Phone Number [facility] [address] [place] [address] * (ABNORMAL) POCT glucose meter (01/11/2025 8:22 [...] for testing. Comment 01/11/2025 8:24 PM EST [facility] Office Sweeper ID Vida Garcia 01/11/2025 8:24 PM EST [facility] Device ID [id number] 01/11/2025 8:24 PM EST [facility] Specimen Type POC Capillary 01/11/2025 8:24 PM EST [facility] Blood Capillary blood specimen / Unknown 01/11/2025 8:22 PM EST 01/11/2025 8:24 PM EST Maciel Olson MD LAB POINT OF CARE TE ST DOCKED DEVICE UNSOLICITED RESULTS Final Result Performing Organization Address City/[facility] [address]/[facility] Co de Phone Number [facility] [address] [place] [address] * (ABNORMAL) POCT glucose meter (01/11/2025 4:54 [...] 01/11/2025 4:56 PM EST [facility] Office Sweeper ID JoseTila 4:56 PM EST [facility] Device ID [id number] 01/11/2025 4:56 PM EST [facility] Specimen Type POC Capillary 01/11/2025 4:56 PM EST [facility] Blood Capillary blood specimen / Unknown 01/11/2025 4:54 PM EST 01/11/2025 4:56 PM EST us Maciel Olson MD LAB POINT OF CARE TE ST DOCKED DEVICE UNSOLICITED RESULTS Final Result Performing Organization Address City/[facility] [address]/[facility] de Phone Number [facility] [address] [place] [address] * (ABNORMAL) POCT glucose meter (01/11/2025 11:35 [...] 01/11/2025 11:37 AM EST [facility] Office Sweeper ID Tila Garcia 11:37 AM EST [facility] Device ID [id number] 01/11/2025 11:37 AM EST [facility] Specimen Type POC Capillary 01/11/2025 11:37 AM EST [facility] Blood Capillary blood specimen / Unknown 01/11/2025 11:35 AM EST 01/11/2025 11:37 AM EST us Maciel Olson MD LAB POINT OF CARE TE ST DOCKED DEVICE UNSOLICITED RESULTS Final Result Performing Organization Address City/[facility] [address]/[facility] Co de Phone Number [facility] [address] [place] [address] * POCT glucose meter (01/11/2025 8:06 AM [...] for testing. Comment 01/11/2025 8:07 AM EST [facility] Office Sweeper ID Tila Garcia 8:07 AM EST [facility] Device ID [id number] 01/11/2025 8:07 AM EST [facility] Specimen Type POC Capillary 01/11/2025 8:07 AM EST [facility] Blood Capillary blood specimen / Unknown 01/11/2025 8:06 AM EST 01/11/2025 8:07 AM EST us Maciel Olson MD LAB POINT OF CARE TE ST DOCKED DEVICE UNSOLICITED RESULTS Final Result Performing Organization Address City/State/[facility] Phone Number [facility] [address] [place] [address] * (ABNORMAL) Prothrombin Time/INR (01/11/2025 5:41 AM EST) Pathologist [facility] Prothrombin Time 15.9(H) 12.0 - 14.3 sec LAB COAGULATION METHOD 01/11/2025 6:05 AM EST [facility] INR 1.2(H) 0.9 - 1.1 LAB COAGULATION METHOD 01/11/2025 6:05 AM EST [facility] Blood Venous blood specimen / Unknown Venipuncture / Unknown 01/11/2025 5:41 AM EST 01/11/2025 5:45 AM EST Narrative [facility] - 01/11/2025 6:05 AM EST OPTIMAL INR RANGES FOR PATIENT ON ORAL ANTICOAGULANT THERAPY Prevention of venous thromboembolism INR 2.0 to 3.0 In patients with heart disease: Atrial fibrillation INR 2.0 to 3.0 Valvular heart disease INR 2.0 to 3.0 Tissue heart valves INR 2.0 to 3.0 Mechanical prosthetic valves INR 2.5 to 3.5 Prevention of recurrent GA INR 2.5 to 3.5 us Maicel Olson MD LAB BLOOD ORDERABLES Final Resul t Performing Organization Address City/[facility] [address]/ZIP Co de Phone Number [facility] [address] [place] [address] * Phosphorus (01/11/2025 4:49 AM EST) Phosphorus, Plasma 3.6 2.5 - 4.5 mg/dL 01/11/2025 5:30 AM EST [facility] Blood Venous blood specimen / Unknown Venipuncture / Unknown 01/11/2025 4:49 AM EST 01/11/2025 4:57 AM EST us Maciel Olson MD LAB BLOOD ORDERABLES Final Resul t Performing Organization Address City/[facility] [address]/[facility] Co de Phone Number [facility] [address] [place] [address] * (ABNORMAL) Magnesium (01/11/2025 4:49 AM EST) Magnesium, Plasma 1.6(L) 1.9 - 2.4 mg/dL 01/11/2025 5:30 AM EST [facility] Blood Venous blood specimen / Unknown Venipuncture / Unknown 01/11/2025 4:49 AM EST 01/11/2025 4:57 AM EST us Maciel Olson MD LAB BLOOD ORDERABLES Final Resul t Performing Organization Address City/[facility] [address]/[facility] Co de Phone Number [facility] [address] [place] [address] * (ABNORMAL) Comprehensive metabolic panel (01/11/2025 4:49 AM EST) Glucose, Plasma 81 74 - 99 mg/dL 01/11/2025 5:30 AM EST [facility] BUN, Plasma 31(H) 7 - 21 mg/dL 01/11/2025 5:30 AM EST [facility] Creatinine, Plasma 1.36(H) 0.70 - 1.20 mg/dL 01/11/2025 5:30 AM EST [facility] BUN/Creatinine Ratio 23 01/11/2025 5:30 AM EST [facility] Sodium, Plasma 137 136 - 145 mmol/L 01/11/2025 5:30 AM EST [facility] Potassium, Plasma 3.5(L) 3.6 - 4.9 mmol/L 01/11/2025 5:30 AM EST [facility] Chloride, Plasma 104 97 - 107 mmol/L 01/11/2025 5:30 AM EST [facility] CO2, Plasma 24 22 - 29 mmol/L 01/11/2025 5:30 AM EST [facility] Anion Gap 9 6 - 16 mmol/L 01/11/2025 5:30 AM EST [facility] Total Calcium, Plasma 7.8(L) 8.9 - 10.2 mg/dL 01/11/2025 5:30 AM EST [facility] Total Protein 4.4(L) 6.3 - 7.9 g/dL 01/11/2025 5:30 AM EST [facility] Albumin, Plasma 2.8(L) 3.5 - 5.2 g/dL 01/11/2025 5:30 AM EST [facility] AST, Plasma 31 10 - 50 U/L 01/11/2025 5:30 AM EST [facility] ALT, Plasma 88(H) 10 - 50 U/L 01/11/2025 5:30 AM EST [facility] Alkaline Phosphatase, Plasma 121(H) 40 - 115 U/L 01/11/2025 5:30 AM EST [facility] Total Bilirubin, Plasma 8.5(H) 0.2 - 1.1 mg/dL 01/11/2025 5:30 AM EST [facility] eGFRcr 65.4 mL/min/1.7 3m*2 01/11/2025 5:30 AM EST [facility] Comment:Reported eGFRcr in m L/min/1.73m2 is based the CKD-EPI 2020 equation that does not use a race coefficient. Blood Venous blood specimen / Unknown Venipuncture / Unknown 01/11/2025 4:49 AM EST 01/11/2025 4:57 AM EST us Maciel Olson MD LAB BLOOD ORDERABLES Final Resul t [facility] [address] [place] [address] * (ABNORMAL) CBC W/O Differential (01/11/2025 4:49 AM EST) WBC Count 6.42 3.70 - 10.30 10*3/uL LAB HEMATOLOGY METHOD 01/11/2025 5:07 AM EST [facility] RBC Count 2.57(L) 4.60 - 6.10 10*6/uL LAB HEMATOLOGY METHOD 01/11/2025 5:07 AM EST [facility] HGB 8.3(L) 13.7 - 17.5 g/dL LAB HEMATOLOGY METHOD 01/11/2025 5:07 AM EST [facility] HCT 24.6(L) 40.0 - 51.0 % LAB HEMATOLOGY METHOD 01/11/2025 5:07 AM EST [facility] Platelet Count 39(L) 155 - 369 10*3/uL LAB HEMATOLOGY METHOD 01/11/2025 5:07 AM EST [facility] MCV 96 79 - 98 fL LAB HEMATOLOGY METHOD 01/11/2025 5:07 AM EST [facility] MCH 32.3(H) 26.0 - 32.0 pg LAB HEMATOLOGY METHOD 01/11/2025 5:07 AM EST [facility] MCHC 33.7 30.7 - 35.5 g/dL LAB HEMATOLOGY METHOD 01/11/2025 5:07 AM EST [facility] RDW 22.6(H) 11.5 - 14.5 % LAB HEMATOLOGY METHOD 01/11/2025 5:07 AM EST [facility] MPV 10.2 8.8 - 12.5 fL LAB HEMATOLOGY METHOD 01/11/2025 5:07 AM EST [facility] nRBC 0.0 <=0.0 per 100 WBCs LAB HEMATOLOGY METHOD 01/11/2025 5:07 AM EST [facility] Blood Venous blood specimen / Unknown Venipuncture / Unknown 01/11/2025 4:49 AM EST 01/11/2025 4:57 AM EST us Maciel Olson MD LAB BLOOD ORDERABLES Final Resul t [facility] [address] [place] [address] * Tacrolimus (01/11/2025 4:49 AM EST) Tacrolimus 4.3 4.0 - 17.0 ng/mL 01/11/2025 12:36 PM EST [facility] Comment: Tacrolimus therapeutic range: Initial (<3 mo.) Maintenance Kidney 8-13 ng/mL 4-8 ng/mL Liver 8-13 ng/mL 4-8 ng/mL Heart 8-15 ng/mL 7-13 ng/mL Lung;Heart/Lung 8-17 ng/mL 8-13 ng/mL Blood Venous blood specimen / Unknown Venipuncture / Unknown 01/11/2025 4:49 AM EST 01/11/2025 4:57 AM EST Narrative [facility] - 01/11/2025 12:36 PM EST Test performed by LC-MS/MS at the [facility]. This test was developed and its performance characteristics determined by [facility]. It has not been cleared or approved by the FDA. The laboratory is regulated under CLIA as qualified to perform high-complexity testing. This test is used for clinical purposes. Test performed by LC-MS/MS at the [facility]. This test was developed and its performance characteristics determined by [facility]. It has not been cleared or approved by the FDA. The laboratory is regulated under CLIA as qualified to perform high-complexity testing. This test is used for clinical purposes. Maciel Olson MD LAB BLOOD ORDERABLES Final Resul t [facility] [address] [place] [address] * (ABNORMAL) POCT glucose meter (01/10/2025 8:42 PM EST) POCT Glucose 104(H) 74 - 99 mg/dL 01/10/2025 8:44 PM EST [facility] Comment:Accuracy of a glucos [...] testing. Comment 01/10/2025 8:44 PM EST [facility] Office Sweeper ID Elver Medel 01/10/2025 8:44 PM EST [facility] Device ID [id number] 01/10/2025 8:44 PM EST [facility] Specimen Type POC Capillary 01/10/2025 8:44 PM EST [facility] Blood Capillary blood specimen / Unknown 01/10/2025 8:42 PM EST 01/10/2025 8:44 PM EST us Maciel Olson MD LAB POINT OF CARE TE ST DOCKED DEVICE UNSOLICITED RESULTS Final Result Performing Organization Address City/[facility] [address]/[facility] Co de Phone Number [facility] [address] [place] [address] * (ABNORMAL) POCT glucose meter (01/10/2025 5:02 PM EST) [facility] Signature POCT Glucose 102(H) 74 - 99 mg/dL [...] 01/10/2025 5:03 PM EST [facility] Office Sweeper ID Gaby Alfaro 01/10/2025 5:03 PM EST [facility] Device ID [id number] 01/10/2025 5:03 PM EST [facility] Specimen Type POC Capillary 01/10/2025 5:03 PM EST [facility] Blood Capillary blood specimen / Unknown 01/10/2025 5:02 PM EST 01/10/2025 5:03 PM EST us Maciel lOson MD LAB POINT OF CARE TE ST DOCKED DEVICE UNSOLICITED RESULTS Final Result Performing Organization Address City/[facility] [address]/ZIP Co de Phone Number [facility] [address] [place] [address] * MRCP w and wo IV Contrast [...] using the following sequences: coronal single shot [id number] fast spin echo, axial T2 weighted sequences [...] with normal direction of flow. Procedure Note Karlo, Harit, MD - 01/10/2025 CLINICAL INDICATION: increased Tbili, [...] 01/10/2025 1:54 PM us Jude Peters MD [facility] PROCEDURES Final Result * (ABNORMAL) POCT glucose meter (01/10/2025 11:27 AM EST) [facility] POCT Glucose 109(H) 74 - 99 [...] for testing. Comment 01/10/2025 11:28 AM EST [facility] Office Sweeper ID Gaby Alfaro 01/10/2025 11:28 AM EST [facility] Device ID [id number] 01/10/2025 11:28 AM EST [facility] Specimen Type POC Capillary 01/10/2025 11:28 AM EST [facility] Blood Capillary blood specimen / Unknown 01/10/2025 11:27 AM EST 01/10/2025 11:28 AM EST us Maciel Olson MD LAB POINT OF CARE TE ST DOCKED DEVICE UNSOLICITED RESULTS Final Result Performing Organization Address City/State/[facility] Co de Phone Number [facility] [address] [place] [address] * (ABNORMAL) Comprehensive Metabolic Panel, Plasma (01/10/2025 9:38 AM EST) [facility] Glucose, Plasma 123(H) 74 - 99 mg/dL 01/10/2025 10:13 AM EST [facility] BUN, Plasma 43(H) 7 - 21 mg/dL 01/10/2025 10:13 AM EST [facility] Creatinine, Plasma 1.38(H) 0.70 - 1.20 mg/dL 01/10/2025 10:13 AM EST [facility] BUN/Creatinine Ratio 31 01/10/2025 10:13 AM EST [facility] Sodium, Plasma 136 136 - 145 mmol/L 01/10/2025 10:13 AM EST [facility] Potassium, Plasma 3.7 3.6 - 4.9 mmol/L 01/10/2025 10:13 AM EST [facility] Chloride, Plasma 102 97 - 107 mmol/L 01/10/2025 10:13 AM EST [facility] CO2, Plasma 24 22 - 29 mmol/L 01/10/2025 10:13 AM EST [facility] Anion Gap 10 6 - 16 mmol/L 01/10/2025 10:13 AM EST [facility] Total Calcium, Plasma 8.1(L) 8.9 - 10.2 mg/dL 01/10/2025 10:13 AM EST [facility] Total Protein 4.4(L) 6.3 - 7.9 g/dL 01/10/2025 10:13 AM EST [facility] Albumin, Plasma 2.8(L) 3.5 - 5.2 g/dL 01/10/2025 10:13 AM EST [facility] AST, Plasma 39 10 - 50 U/L 01/10/2025 10:13 AM EST [facility] ALT, Plasma 111(H) 10 - 50 U/L 01/10/2025 10:13 AM EST [facility] Alkaline Phosphatase, Plasma 125(H) 40 - 115 U/L 01/10/2025 10:13 AM EST [facility] Total Bilirubin, Plasma 6.1(H) 0.2 - 1.1 mg/dL 01/10/2025 10:13 AM EST [facility] eGFRcr 64.3 mL/min/1.7 3m*2 01/10/2025 10:13 AM EST [facility] Comment:Reported eGFRcr in m L/min/1.73m2 is based the CKD-EPI 2020 equation that does not use a race coefficient. Blood Venous blood specimen / Unknown Venipuncture / Unknown 01/10/2025 9:38 AM EST 01/10/2025 9:42 AM EST us Jude Peters MD LAB BLOOD ORDERABL ES Final Result [facility] [address] [place] [address] * POCT glucose meter (01/10/2025 7:30 AM [...] for testing. Comment 01/10/2025 7:32 AM EST [facility] Office Sweeper ID Gaby Alfaro 01/10/2025 7:32 AM EST [facility] Device ID [id number] 01/10/2025 7:32 AM EST [facility] Specimen Type POC Capillary 01/10/2025 7:32 AM EST [facility] Blood Capillary blood specimen / Unknown 01/10/2025 7:30 AM EST 01/10/2025 7:32 AM EST us Maciel Olson MD LAB POINT OF CARE TE ST DOCKED DEVICE UNSOLICITED RESULTS Final Result [facility] [address] [place] [address] * (ABNORMAL) POCT glucose meter (01/10/2025 6:14 AM EST) [facility] POCT Glucose 103(H) 74 - 99 mg/dL [...] 01/10/2025 6:15 AM EST [facility] Office Sweeper ID Anay Rodriguez 01/10/2025 6:15 AM EST [facility] Device ID [id number] 01/10/2025 6:15 AM EST [facility] Specimen Type POC Capillary 01/10/2025 6:15 AM EST [facility] Blood Capillary blood specimen / Unknown 01/10/2025 6:14 AM EST 01/10/2025 6:15 AM EST us Maciel Olson MD LAB POINT OF CARE TE ST DOCKED DEVICE UNSOLICITED RESULTS Final Result Performing Organization Address [facility] Phone Number [facility] [address] [place] [address] * POCT glucose meter (01/10/2025 5:23 AM EST) POCT Glucose 83 74 - 99 mg/dL 01/10/2025 5:25 AM EST [facility] Comment:Accuracy of a glucos [...] for testing. Comment 01/10/2025 5:25 AM EST [facility] Office Sweeper ID Michael, Ada 01/10/2025 5:25 AM EST [facility] Device ID [id number] 01/10/2025 5:25 AM EST [facility] Specimen Type POC Capillary 01/10/2025 5:25 AM EST [facility] Blood Capillary blood specimen / Unknown 01/10/2025 5:23 AM EST 01/10/2025 5:25 AM EST us Maciel Olson MD LAB POINT OF CARE TE ST DOCKED DEVICE UNSOLICITED RESULTS Final Result Performing Organization Address City/[facility] [address]/[facility] de Phone Number [facility] [address] [place] [address] * Phosphorus (01/10/2025 5:13 AM EST) Phosphorus, Plasma 3.8 2.5 - 4.5 mg/dL 01/10/2025 5:49 AM EST [facility] Blood Venous blood specimen / Unknown Venipuncture / Unknown 01/10/2025 5:13 AM EST 01/10/2025 5:20 AM EST us Maciel Olson MD LAB BLOOD ORDERABLES Final Resul t [facility] [address] [place] [address] * (ABNORMAL) Magnesium (01/10/2025 5:13 AM EST) Magnesium, Plasma 1.5(L) 1.9 - 2.4 mg/dL 01/10/2025 5:49 AM EST [facility] Blood Venous blood specimen / Unknown Venipuncture / Unknown 01/10/2025 5:13 AM EST 01/10/2025 5:20 AM EST us Maciel Olson MD LAB BLOOD ORDERABLES Final Resul t Performing Organization Address [facility] Co de Phone Number [facility] [address] [place] [address] * (ABNORMAL) Comprehensive metabolic panel (01/10/2025 5:13 AM EST) Glucose, Plasma 79 74 - 99 mg/dL 01/10/2025 5:49 AM EST [facility] BUN, Plasma 44(H) 7 - 21 mg/dL 01/10/2025 5:49 AM EST [facility] Creatinine, Plasma 1.44(H) 0.70 - 1.20 mg/dL 01/10/2025 5:49 AM EST [facility] BUN/Creatinine Ratio 31 01/10/2025 5:49 AM EST [facility] Sodium, Plasma 136 136 - 145 mmol/L 01/10/2025 5:49 AM EST [facility] Potassium, Plasma 3.7 3.6 - 4.9 mmol/L 01/10/2025 5:49 AM EST [facility] Chloride, Plasma 101 97 - 107 mmol/L 01/10/2025 5:49 AM EST [facility] CO2, Plasma 23 22 - 29 mmol/L 01/10/2025 5:49 AM EST [facility] Anion Gap 12 6 - 16 mmol/L 01/10/2025 5:49 AM EST [facility] Total Calcium, Plasma 8.3(L) 8.9 - 10.2 mg/dL 01/10/2025 5:49 AM EST [facility] Total Protein 4.8(L) 6.3 - 7.9 g/dL 01/10/2025 5:49 AM EST [facility] Albumin, Plasma 3.1(L) 3.5 - 5.2 g/dL 01/10/2025 5:49 AM EST [facility] AST, Plasma 49 10 - 50 U/L 01/10/2025 5:49 AM EST [facility] ALT, Plasma 126(H) 10 - 50 U/L 01/10/2025 5:49 AM EST [facility] Alkaline Phosphatase, Plasma 127(H) 40 - 115 U/L 01/10/2025 5:49 AM EST [facility] Total Bilirubin, Plasma 5.2(H) 0.2 - 1.1 mg/dL 01/10/2025 5:49 AM EST [facility] eGFRcr 61.1 mL/min/1.7 3m*2 01/10/2025 5:49 AM EST [facility] Comment:Reported eGFRcr in m L/min/1.73m2 is based the CKD-EPI 2020 equation that does not use a race coefficient. Blood Venous blood specimen / Unknown Venipuncture / Unknown 01/10/2025 5:13 AM EST 01/10/2025 5:20 AM EST us Maciel Olson MD LAB BLOOD ORDERABLES Final Resul t [facility] [address] [place] [address] * (ABNORMAL) CBC W/O Differential (01/10/2025 5:13 AM EST) WBC Count 6.97 3.70 - 10.30 10*3/uL LAB HEMATOLOGY METHOD 01/10/2025 5:29 AM EST [facility] RBC Count 3.03(L) 4.60 - 6.10 10*6/uL LAB HEMATOLOGY METHOD 01/10/2025 5:29 AM EST [facility] HGB 9.4(L) 13.7 - 17.5 g/dL LAB HEMATOLOGY METHOD 01/10/2025 5:29 AM EST [facility] HCT 28.1(L) 40.0 - 51.0 % LAB HEMATOLOGY METHOD 01/10/2025 5:29 AM EST [facility] Platelet Count 44(L) 155 - 369 10*3/uL LAB HEMATOLOGY METHOD 01/10/2025 5:29 AM EST [facility] MCV 93 79 - 98 fL LAB HEMATOLOGY METHOD 01/10/2025 5:29 AM EST [facility] MCH 31.0 26.0 - 32.0 pg LAB HEMATOLOGY METHOD 01/10/2025 5:29 AM EST [facility] MCHC 33.5 30.7 - 35.5 g/dL LAB HEMATOLOGY METHOD 01/10/2025 5:29 AM EST [facility] RDW 21.7(H) 11.5 - 14.5 % LAB HEMATOLOGY METHOD 01/10/2025 5:29 AM EST [facility] MPV 11.5 8.8 - 12.5 fL LAB HEMATOLOGY METHOD 01/10/2025 5:29 AM EST [facility] nRBC 0.0 <=0.0 per 100 WBCs LAB HEMATOLOGY METHOD 01/10/2025 5:29 AM EST [facility] Blood Venous blood specimen / Unknown Venipuncture / Unknown 01/10/2025 5:13 AM EST 01/10/2025 5:20 AM EST us Maciel Olson MD LAB BLOOD ORDERABLES Final Resul t [facility] [address] [place] [address] * (ABNORMAL) Prothrombin Time/INR (01/10/2025 5:13 AM EST) Prothrombin Time 16.0(H) 12.0 - 14.3 sec LAB COAGULATION METHOD 01/10/2025 5:35 AM EST [facility] INR 1.3(H) 0.9 - 1.1 LAB COAGULATION METHOD 01/10/2025 5:35 AM EST [facility] Blood Venous blood specimen / Unknown Venipuncture / Unknown 01/10/2025 5:13 AM EST 01/10/2025 5:20 AM EST Narrative [facility] - 01/10/2025 5:35 AM EST OPTIMAL INR RANGES FOR PATIENT ON ORAL ANTICOAGULANT THERAPY Prevention of venous thromboembolism INR 2.0 to 3.0 In patients with heart disease: Atrial fibrillation INR 2.0 to 3.0 Valvular heart disease INR 2.0 to 3.0 Tissue heart valves INR 2.0 to 3.0 Mechanical prosthetic valves INR 2.5 to 3.5 Prevention of recurrent GA INR 2.5 to 3.5 us Maciel Olson MD LAB BLOOD ORDERABLES Final Resul t [facility] [address] [place] [address] * (ABNORMAL) Tacrolimus (01/10/2025 5:13 AM EST) Tacrolimus 3.4(L) 4.0 - 17.0 ng/mL 01/10/2025 11:55 AM EST [facility] Comment: Tacrolimus therapeutic range: Initial (<3 mo.) Maintenance Kidney 8-13 ng/mL 4-8 ng/mL Liver 8-13 ng/mL 4-8 ng/mL Heart 8-15 ng/mL 7-13 ng/mL Lung;Heart/Lung 8-17 ng/mL 8-13 ng/mL Blood Venous blood specimen / Unknown Venipuncture / Unknown 01/10/2025 5:13 AM EST 01/10/2025 5:19 AM EST Narrative [facility] - 01/10/2025 11:55 AM EST Test performed by LC-MS/MS at the [facility]. This test was developed and its performance characteristics determined by [facility]. It has not been cleared or approved by the FDA. The laboratory is regulated under CLIA as qualified to perform high-complexity testing. This test is used for clinical purposes. Test performed by LC-MS/MS at the [facility]. This test was developed and its performance characteristics determined by [facility]. It has not been cleared or approved by the FDA. The laboratory is regulated under CLIA as qualified to perform high-complexity testing. This test is used for clinical purposes. us Maciel Olson MD LAB BLOOD ORDERABLES Final Resul t [facility] [address] [place] [address] * POCT glucose meter (01/10/2025 12:35 AM EST) POCT Glucose 93 74 - 99 mg/dL 01/10/2025 12:37 AM EST [facility] Comment:Accuracy of a [...] for testing. Comment 01/10/2025 12:37 AM EST [employer] [employer] Office Sweeper ID Anay Rodriguez 01/10/2025 12:37 AM EST [facility] Device ID [id number] 01/10/2025 12:37 AM EST [facility] Specimen Type POC Capillary 01/10/2025 12:37 AM EST [facility] Blood Capillary blood specimen / Unknown 01/10/2025 12:35 AM EST 01/10/2025 12:37 AM EST us Maciel Olson MD LAB POINT OF CARE TE ST DOCKED DEVICE UNSOLICITED RESULTS Final Result Performing Organization Address City/[facility] [address]/[facility] Co de Phone Number [facility] [address] [place] [address] * POCT glucose meter (01/10/2025 12:05 AM EST) POCT Glucose 87 74 - 99 mg/dL 01/10/2025 12:06 AM EST [facility] Comment:Accuracy of a glucos e result [...] 01/10/2025 12:06 AM EST [facility] Office Sweeper ID Anay Rodriguez 01/10/2025 12:06 AM EST [facility] Device ID [id number] 01/10/2025 12:06 AM EST [facility] Specimen Type POC Capillary 01/10/2025 12:06 AM EST [facility] Blood Capillary blood specimen / Unknown 01/10/2025 12:05 AM EST 01/10/2025 12:06 AM EST us Maciel Olson MD LAB POINT OF CARE TE ST DOCKED DEVICE UNSOLICITED RESULTS Final Result Performing Organization Address City/[facility] [address]/[facility] Co de Phone Number [facility] [address] [place] [address] * (ABNORMAL) POCT glucose meter (01/09/2025 7:52 [...] for testing. Comment 01/09/2025 7:53 PM EST [facility] Office Sweeper ID Shaina Haines 01/09/2025 7:53 PM EST [facility] Device ID [id number] 01/09/2025 7:53 PM EST [facility] Specimen Type POC Capillary 01/09/2025 7:53 PM EST [facility] Blood Capillary blood specimen / Unknown 01/09/2025 7:52 PM EST 01/09/2025 7:53 PM EST us Maciel Olson MD LAB POINT OF CARE TE ST DOCKED DEVICE UNSOLICITED RESULTS Final Result Performing Organization Address City/[facility] [address]/[facility] Co de Phone Number [facility] [address] [place] [address] * POCT glucose meter (01/09/2025 5:02 PM [...] 01/09/2025 5:03 PM EST [facility] Office Sweeper ID Dominic Canchola 01/09/2025 5:03 PM EST [facility] Device ID [id number] 01/09/2025 5:03 PM EST [facility] Specimen Type POC Capillary 01/09/2025 5:03 PM EST [facility] Blood Capillary blood specimen / Unknown 01/09/2025 5:02 PM EST 01/09/2025 5:03 PM EST us Maciel Olson MD LAB POINT OF CARE TE ST DOCKED DEVICE UNSOLICITED RESULTS Final Result Performing Organization Address City/State/[facility] Co de Phone Number [facility] [address] [place] [address] * (ABNORMAL) POCT glucose meter (01/09/2025 11:23 [...] 01/09/2025 11:25 AM EST [facility] Office Sweeper ID Dominic Canchola 01/09/2025 11:25 AM EST [facility] Device ID [id number] 01/09/2025 11:25 AM EST [facility] Specimen Type POC Capillary 01/09/2025 11:25 AM EST [facility] Blood Capillary blood specimen / Unknown 01/09/2025 11:23 AM EST 01/09/2025 11:25 AM EST us Maciel Olson MD LAB POINT OF CARE TE ST DOCKED DEVICE UNSOLICITED RESULTS Final Result Performing Organization Address City/[facility] [address]/ZIP Co de Phone Number [facility] [address] [place] [address] * (ABNORMAL) POCT glucose meter (01/09/2025 8:00 [...] for testing. Comment 01/09/2025 8:02 AM EST [facility] Office Sweeper ID Dominic Canchola 01/09/2025 8:02 AM EST [facility] Device ID [id number] 01/09/2025 8:02 AM EST [facility] Specimen Type POC Capillary 01/09/2025 8:02 AM EST [facility] Blood Capillary blood specimen / Unknown 01/09/2025 8:00 AM EST 01/09/2025 8:02 AM EST Maciel Olson MD LAB POINT OF CARE TE ST DOCKED DEVICE UNSOLICITED RESULTS Final Result Performing Organization Address City/[facility] [address]/[facility] Co de Phone Number [facility] [address] [place] [address] * (ABNORMAL) POCT glucose meter (01/09/2025 5:38 [...] 01/09/2025 5:39 AM EST [facility] Office Sweeper ID MedelElver 01/09/2025 5:39 AM EST [facility] Device ID [id number] 01/09/2025 5:39 AM EST [facility] Specimen Type POC Capillary 01/09/2025 5:39 AM EST [facility] Blood Capillary blood specimen / Unknown 01/09/2025 5:38 AM EST 01/09/2025 5:39 AM EST us Maciel Olson MD LAB POINT OF CARE TE ST DOCKED DEVICE UNSOLICITED RESULTS Final Result [facility] [address] [place] [address] * Phosphorus (01/09/2025 5:13 AM EST) Phosphorus, Plasma 3.0 2.5 - 4.5 mg/dL 01/09/2025 6:59 AM EST [facility] Blood Venous blood specimen / Unknown 01/09/2025 5:13 AM EST 01/09/2025 5:13 AM EST us Maciel Olson MD LAB BLOOD ORDERABLES Final Resul t Performing Organization Address City/[facility] [address]/ZIP Co de Phone Number [facility] [address] [place] [address] * Magnesium (01/09/2025 5:13 AM EST) Magnesium, Plasma 1.9 1.9 - 2.4 mg/dL 01/09/2025 6:59 AM EST [facility] Blood Venous blood specimen / Unknown 01/09/2025 5:13 AM EST 01/09/2025 5:13 AM EST us Maciel Olson MD LAB BLOOD ORDERABLES Final Resul t Performing Organization Address City/[facility] [address]/ZIP Co de Phone Number [facility] [address] [place] [address] * (ABNORMAL) Comprehensive metabolic panel (01/09/2025 5:13 AM EST) Glucose, Plasma 96 74 - 99 mg/dL 01/09/2025 6:59 AM [facility] BUN, Plasma 55(H) 7 - 21 mg/dL 01/09/2025 6:59 AM [facility] Creatinine, Plasma 1.67(H) 0.70 - 1.20 mg/dL 01/09/2025 6:59 AM [facility] BUN/Creatinine Ratio 33 01/09/2025 6:59 AM EST [facility] Sodium, Plasma 135(L) 136 - 145 mmol/L 01/09/2025 6:59 AM [facility] Potassium, Plasma 4.1 3.6 - 4.9 mmol/L 01/09/2025 6:59 AM [facility] Chloride, Plasma 107 97 - 107 mmol/L 01/09/2025 6:59 AM [facility] CO2, Plasma 20(L) 22 - 29 mmol/L 01/09/2025 6:59 AM [facility] Anion Gap 8 6 - 16 mmol/L 01/09/2025 6:59 AM [facility] Total Calcium, Plasma 8.2(L) 8.9 - 10.2 mg/dL 01/09/2025 6:59 AM [facility] Total Protein 4.6(L) 6.3 - 7.9 g/dL 01/09/2025 6:59 AM [facility] Albumin, Plasma 2.9(L) 3.5 - 5.2 g/dL 01/09/2025 6:59 AM [facility] AST, Plasma 45 10 - 50 U/L 01/09/2025 6:59 AM [facility] Comment:Hemolyzed, result ma y be falsely increased. ALT, Plasma 112(H) 10 - 50 U/L 01/09/2025 6:59 AM [facility] Alkaline Phosphatase, Plasma 68 40 - 115 U/L 01/09/2025 6:59 AM [facility] Total Bilirubin, Plasma 2.8(H) 0.2 - 1.1 mg/dL 01/09/2025 6:59 AM [facility] eGFRcr 51.1 mL/min/1.7 3m*2 01/09/2025 6:59 AM EST [facility] Comment:Reported eGFRcr in m L/min/1.73m2 is based the CKD-EPI 2020 equation that does not use a race coefficient. Blood Venous blood specimen / Unknown 01/09/2025 5:13 AM EST 01/09/2025 5:13 AM EST us Maciel Olson MD LAB BLOOD ORDERABLES Final Resul t [facility] [address] [place] [address] * (ABNORMAL) CBC W/O Differential (01/09/2025 5:13 AM EST) WBC Count 5.04 3.70 - 10.30 10*3/uL LAB HEMATOLOGY METHOD 01/09/2025 7:00 AM EST [facility] RBC Count 2.75(L) 4.60 - 6.10 10*6/uL LAB HEMATOLOGY METHOD 01/09/2025 7:00 AM EST [facility] HGB 8.6(L) 13.7 - 17.5 g/dL LAB HEMATOLOGY METHOD 01/09/2025 7:00 AM EST [facility] HCT 25.7(L) 40.0 - 51.0 % LAB HEMATOLOGY METHOD 01/09/2025 7:00 AM EST [facility] Platelet Count 44(L) 155 - 369 10*3/uL LAB HEMATOLOGY METHOD 01/09/2025 7:00 AM EST [facility] MCV 94 79 - 98 fL LAB HEMATOLOGY METHOD 01/09/2025 7:00 AM EST [facility] MCH 31.3 26.0 - 32.0 pg LAB HEMATOLOGY METHOD 01/09/2025 7:00 AM EST [facility] MCHC 33.5 30.7 - 35.5 g/dL LAB HEMATOLOGY METHOD 01/09/2025 7:00 AM EST [facility] RDW 21.1(H) 11.5 - 14.5 % LAB HEMATOLOGY METHOD 01/09/2025 7:00 AM EST [facility] MPV 10.8 8.8 - 12.5 fL LAB HEMATOLOGY METHOD 01/09/2025 7:00 AM EST [facility] nRBC 0.0 <=0.0 per 100 WBCs LAB HEMATOLOGY METHOD 01/09/2025 7:00 AM EST [facility] Blood Venous blood specimen / Unknown 01/09/2025 5:13 AM EST 01/09/2025 5:13 AM EST us Maciel Olson MD LAB BLOOD ORDERABLES Final Resul t Performing Organization Address City/[facility] [address]/ZIP Co de Phone Number [facility] [address] [place] [address] * Lavender Top (01/09/2025 5:13 AM EST) Extra Hold for add-ons 01/09/2025 8:01 AM EST [facility] Comment:Auto resulted. Blood Venous blood specimen / Unknown 01/09/2025 5:13 AM EST 01/09/2025 5:13 AM EST us Maciel Olson MD LAB BLOOD ORDERABLES Final Resul t Performing Organization Address [facility] [address]/[facility] Co de Phone Number [facility] [address] [place] [address] * Light Green Top (01/09/2025 5:13 AM EST) Extra Hold for add-ons 01/09/2025 8:01 AM EST [facility] Comment:Auto resulted. Blood Venous blood specimen / Unknown 01/09/2025 5:13 AM EST 01/09/2025 5:13 AM EST us Maciel Olson MD LAB BLOOD ORDERABLES Final Resul t Performing Organization Address City/[facility] [address]/[facility] Co de Phone Number [facility] [address] [place] [address] * (ABNORMAL) Prothrombin Time/INR (01/09/2025 5:07 AM EST) Prothrombin Time 16.0(H) 12.0 - 14.3 sec LAB COAGULATION METHOD 01/09/2025 5:50 AM EST [facility] INR 1.2(H) 0.9 - 1.1 LAB COAGULATION METHOD 01/09/2025 5:50 AM EST [facility] Blood Venous blood specimen / Unknown Venipuncture / Unknown 01/09/2025 5:07 AM EST 01/09/2025 5:12 AM EST Narrative [facility] - 01/09/2025 5:50 AM EST OPTIMAL INR RANGES FOR PATIENT ON ORAL ANTICOAGULANT THERAPY Prevention of venous thromboembolism INR 2.0 to 3.0 In patients with heart disease: Atrial fibrillation INR 2.0 to 3.0 Valvular heart disease INR 2.0 to 3.0 Tissue heart valves INR 2.0 to 3.0 Mechanical prosthetic valves INR 2.5 to 3.5 Prevention of recurrent GA INR 2.5 to 3.5 us Maciel Olson MD LAB BLOOD ORDERABLES Final Resul t [facility] [address] [place] [address] * Tacrolimus (01/09/2025 5:07 AM EST) Tacrolimus 4.0 4.0 - 17.0 ng/mL 01/09/2025 1:21 PM EST [facility] Comment: Tacrolimus therapeutic range: Initial (<3 mo.) Maintenance Kidney 8-13 ng/mL 4-8 ng/mL Liver 8-13 ng/mL 4-8 ng/mL Heart 8-15 ng/mL 7-13 ng/mL Lung;Heart/Lung 8-17 ng/mL 8-13 ng/mL Blood Venous blood specimen / Unknown Venipuncture / Unknown 01/09/2025 5:07 AM EST 01/09/2025 5:12 AM EST Narrative [facility] - 01/09/2025 1:21 PM EST Test performed by LC-MS/MS at the [facility]. This test was developed and its performance characteristics determined by [facility]. It has not been cleared or approved by the FDA. The laboratory is regulated under CLIA as qualified to perform high-complexity testing. This test is used for clinical purposes. Test performed by LC-MS/MS at the [facility]. This test was developed and its performance characteristics determined by [facility]. It has not been cleared or approved by the FDA. The laboratory is regulated under CLIA as qualified to perform high-complexity testing. This test is used for clinical purposes. us Maciel Olson MD LAB BLOOD ORDERABLES Final Resul t Performing Organization Address City/[facility] [address]/ZIP Co de Phone Number [facility] [address] [place] [address] * (ABNORMAL) POCT glucose meter (01/08/2025 11:28 PM EST) POCT Glucose 111(H) 74 - 99 mg/dL 01/08/2025 11:30 PM EST [facility] Comment:Accuracy of a glucos e result [...] for testing. Comment 01/08/2025 11:30 PM EST [facility] Office Sweeper ID Elver Medel 01/08/2025 11:30 PM EST [facility] Device ID [id number] 01/08/2025 11:30 PM EST [facility] Specimen Type POC Capillary 01/08/2025 11:30 PM EST [facility] Blood Capillary blood specimen / Unknown 01/08/2025 11:28 PM EST 01/08/2025 11:30 PM EST Maciel Olson MD LAB POINT OF CARE TE ST DOCKED DEVICE UNSOLICITED RESULTS Final Result Performing Organization Address City/[facility] [address]/[facility] Co de Phone Number [facility] [address] [place] [address] * (ABNORMAL) POCT glucose meter (01/08/2025 8:09 PM EST) POCT Glucose 115(H) 74 - 99 mg/dL 01/08/2025 8:11 PM EST [facility] Comment:Accuracy of a glucos e result [...] 01/08/2025 8:11 PM EST [facility] Office Sweeper ID Elver Medel 01/08/2025 8:11 PM EST [facility] Device ID [id number] 01/08/2025 8:11 PM EST [facility] Specimen Type POC Capillary 01/08/2025 8:11 PM EST [facility] Blood Capillary blood specimen / Unknown 01/08/2025 8:09 PM EST 01/08/2025 8:11 PM EST Maciel Olson MD LAB POINT OF CARE TE ST DOCKED DEVICE UNSOLICITED RESULTS Final Result Performing Organization Address City/[facility] [address]/[facility] Co de Phone Number [facility] [address] [place] [address] * (ABNORMAL) POCT glucose meter (01/08/2025 5:11 PM EST) POCT Glucose 118(H) 74 - 99 mg/dL 01/08/2025 5:13 PM EST [facility] Comment:Accuracy of a glucos [...] Comment 01/08/2025 5:13 PM EST [facility] Office Sweeper ID India Schultz 01/08/2025 5:13 PM EST [facility] Device ID [id number] 01/08/2025 5:13 PM EST [facility] Specimen Type POC Capillary 01/08/2025 5:13 PM EST [facility] Blood Capillary blood specimen / Unknown 01/08/2025 5:11 PM EST 01/08/2025 5:13 PM EST us Maciel Olson MD LAB POINT OF CARE TE ST DOCKED DEVICE UNSOLICITED RESULTS Final Result Performing Organization Address City/[facility] [address]/ZIP Co de Phone Number [facility] [address] [place] [address] * XR Chest 1 View (01/08/2025 12:15 [...] - 99 mg/dL 01/08/2025 11:32 AM EST [facility] Comment:Accuracy of a glucos e result [...] for testing. Comment 01/08/2025 11:32 AM EST [facility] Office Sweeper ID India Schultz 01/08/2025 11:32 AM EST [facility] Device ID [id number] 01/08/2025 11:32 AM EST [facility] Specimen Type POC Capillary 01/08/2025 11:32 AM EST [facility] Blood Capillary blood specimen / Unknown 01/08/2025 11:30 AM EST 01/08/2025 11:32 AM EST Maciel Olson MD LAB POINT OF CARE TE ST DOCKED DEVICE UNSOLICITED RESULTS Final Result Performing Organization Address City/[facility] [address]/[facility] Co de Phone Number [facility] [address] [place] [address] * Phosphorus, Plasma (01/08/2025 8:21 AM EST) Pathologist [facility] Phosphorus, Plasma 3.1 2.5 - 4.5 mg/dL 01/08/2025 8:56 AM EST [facility] Blood Venous blood specimen / Unknown Venipuncture / Unknown 01/08/2025 8:21 AM EST 01/08/2025 8:27 AM EST Maciel Olson MD LAB BLOOD ORDERABLES Final Resul t Performing Organization Address City/[facility] [address]/[facility] Co de Phone Number [facility] [address] [place] [address] * (ABNORMAL) CBC and Differential (01/08/2025 8:21 AM EST) WBC Count 5.64 3.70 - 10.30 10*3/uL LAB HEMATOLOGY METHOD 01/08/2025 8:34 AM EST [facility] RBC Count 2.85(L) 4.60 - 6.10 10*6/uL LAB HEMATOLOGY METHOD 01/08/2025 8:34 AM EST [facility] HGB 8.8(L) 13.7 - 17.5 g/dL LAB HEMATOLOGY METHOD 01/08/2025 8:34 AM EST [facility] HCT 25.8(L) 40.0 - 51.0 % LAB HEMATOLOGY METHOD 01/08/2025 8:34 AM EST [facility] Platelet Count 50(L) 155 - 369 10*3/uL LAB HEMATOLOGY METHOD 01/08/2025 8:34 AM EST [facility] MCV 91 79 - 98 fL LAB HEMATOLOGY METHOD 01/08/2025 8:34 AM EST [facility] MCH 30.9 26.0 - 32.0 pg LAB HEMATOLOGY METHOD 01/08/2025 8:34 AM EST [facility] MCHC 34.1 30.7 - 35.5 g/dL LAB HEMATOLOGY METHOD 01/08/2025 8:34 AM EST [facility] RDW 20.4(H) 11.5 - 14.5 % LAB HEMATOLOGY METHOD 01/08/2025 8:34 AM EST [facility] MPV 10.0 8.8 - 12.5 fL LAB HEMATOLOGY METHOD 01/08/2025 8:34 AM [facility] nRBC 0.0 <=0.0 per 100 WBCs LAB HEMATOLOGY METHOD 01/08/2025 8:34 AM [facility] Differential Type Automated LAB HEMATOLOGY METHOD 01/08/2025 8:34 AM [facility] Neutrophils % 79 % LAB HEMATOLOGY METHOD 01/08/2025 8:34 AM [facility] Lymphocytes % 5 % LAB HEMATOLOGY METHOD 01/08/2025 8:34 AM [facility] Monocytes % 15 % LAB HEMATOLOGY METHOD 01/08/2025 8:34 AM [facility] Eosinophils % 0 % LAB HEMATOLOGY METHOD 01/08/2025 8:34 AM [facility] Basophils % 0 % LAB HEMATOLOGY METHOD 01/08/2025 8:34 AM [facility] Immature Granulocytes % 1 % LAB HEMATOLOGY METHOD 01/08/2025 8:34 AM [facility] Neutrophils Absolute 4.50 1.60 - 6.10 10*3/uL LAB HEMATOLOGY METHOD 01/08/2025 8:34 AM EST [facility] Lymphocytes Absolute 0.28(L) 1.20 - 3.90 10*3/uL LAB HEMATOLOGY METHOD 01/08/2025 8:34 AM EST [facility] Monocytes Absolute 0.82 0.30 - 0.90 10*3/uL LAB HEMATOLOGY METHOD 01/08/2025 8:34 AM EST [facility] Eosinophils Absolute 0.01 0.00 - 0.50 10*3/uL LAB HEMATOLOGY METHOD 01/08/2025 8:34 AM EST [facility] Basophils Absolute 0.00 0.00 - 0.10 10*3/uL LAB HEMATOLOGY METHOD 01/08/2025 8:34 AM EST [facility] Immature Granulocytes Absolute 0.03 0.00 - 0.06 10*3/uL LAB HEMATOLOGY METHOD 01/08/2025 8:34 AM EST [facility] Blood Venous blood specimen / Unknown Venipuncture / Unknown 01/08/2025 8:21 AM EST 01/08/2025 8:27 AM EST Narrative [facility] - 01/08/2025 8:34 AM EST Therapeutic decision making should be based on absolute values, rather than percentages. us Maciel Olson MD LAB BLOOD ORDERABLES Final Resul t [facility] [address] [place] [address] * (ABNORMAL) Comprehensive metabolic panel (01/08/2025 8:21 AM EST) Glucose, Plasma 113(H) 74 - 99 mg/dL 01/08/2025 8:56 AM EST [facility] BUN, Plasma 65(H) 7 - 21 mg/dL 01/08/2025 8:56 AM EST [facility] Creatinine, Plasma 1.82(H) 0.70 - 1.20 mg/dL 01/08/2025 8:56 AM EST [facility] BUN/Creatinine Ratio 36 01/08/2025 8:56 AM EST [facility] Sodium, Plasma 136 136 - 145 mmol/L 01/08/2025 8:56 AM EST [facility] Potassium, Plasma 4.3 3.6 - 4.9 mmol/L 01/08/2025 8:56 AM EST [facility] Chloride, Plasma 107 97 - 107 mmol/L 01/08/2025 8:56 AM EST [facility] CO2, Plasma 19(L) 22 - 29 mmol/L 01/08/2025 8:56 AM EST [facility] Anion Gap 10 6 - 16 mmol/L 01/08/2025 8:56 AM EST [facility] Total Calcium, Plasma 8.2(L) 8.9 - 10.2 mg/dL 01/08/2025 8:56 AM EST [facility] Total Protein 4.8(L) 6.3 - 7.9 g/dL 01/08/2025 8:56 AM EST [facility] Albumin, Plasma 2.9(L) 3.5 - 5.2 g/dL 01/08/2025 8:56 AM EST [facility] AST, Plasma 44 10 - 50 U/L 01/08/2025 8:56 AM EST [facility] ALT, Plasma 104(H) 10 - 50 U/L 01/08/2025 8:56 AM EST [facility] Alkaline Phosphatase, Plasma 71 40 - 115 U/L 01/08/2025 8:56 AM EST [facility] Total Bilirubin, Plasma 2.9(H) 0.2 - 1.1 mg/dL 01/08/2025 8:56 AM EST [facility] eGFRcr 46.1 mL/min/1.7 3m*2 01/08/2025 8:56 AM EST [facility] Comment:Reported eGFRcr in m L/min/1.73m2 is based the CKD-EPI 2020 equation that does not use a race coefficient. Blood Venous blood specimen / Unknown Venipuncture / Unknown 01/08/2025 8:21 AM EST 01/08/2025 8:27 AM EST Maciel Olson MD LAB BLOOD ORDERABLES Final Resul t [facility] [address] [place] [address] * Magnesium, Plasma (01/08/2025 8:21 AM EST) Magnesium, Plasma 2.3 1.9 - 2.4 mg/dL 01/08/2025 8:56 AM EST [facility] Blood Venous blood specimen / Unknown Venipuncture / Unknown 01/08/2025 8:21 AM EST 01/08/2025 8:27 AM EST Maciel Olson MD LAB BLOOD ORDERABLES Final Resul t [facility] [address] [place] [address] * (ABNORMAL) POCT glucose meter (01/08/2025 8:04 AM EST) POCT Glucose 122(H) 74 - 99 mg/dL [...] for testing. Comment 01/08/2025 8:14 AM EST [facility] Office Sweeper ID MichaelsSilasIndia Carroll 01/08/2025 8:14 AM EST [facility] Device ID [id number] 01/08/2025 8:14 AM EST [facility] Specimen Type POC Capillary 01/08/2025 8:14 AM EST [facility] Blood Capillary blood specimen / Unknown 01/08/2025 8:04 AM EST 01/08/2025 8:14 AM EST Maciel Olson MD LAB POINT OF CARE TE ST DOCKED DEVICE UNSOLICITED RESULTS Final Result [facility] [address] [place] [address] * (ABNORMAL) POCT glucose meter (01/08/2025 6:36 [...] 01/08/2025 6:41 AM EST [facility] Office Sweeper ID Zachery Villarreal 01/08/2025 6:41 AM EST [facility] Device ID [id number] 01/08/2025 6:41 AM EST [facility] Specimen Type POC Capillary 01/08/2025 6:41 AM EST [facility] Blood Capillary blood specimen / Unknown 01/08/2025 6:36 AM EST 01/08/2025 6:41 AM EST Maciel Olson MD LAB POINT OF CARE TE ST DOCKED DEVICE UNSOLICITED RESULTS Final Result [facility] [address] [place] [address] * Tacrolimus (01/08/2025 5:05 AM EST) Tacrolimus 5.8 4.0 - 17.0 ng/mL 01/08/2025 1:07 PM EST [facility] Comment: Tacrolimus therapeutic range: Initial (<3 mo.) Maintenance Kidney 8-13 ng/mL 4-8 ng/mL Liver 8-13 ng/mL 4-8 ng/mL Heart 8-15 ng/mL 7-13 ng/mL Lung;Heart/Lung 8-17 ng/mL 8-13 ng/mL Blood Venous blood specimen / Unknown Venipuncture / Unknown 01/08/2025 5:05 AM EST 01/08/2025 5:11 AM EST Narrative [facility] - 01/08/2025 1:07 PM EST Test performed by LC-MS/MS at the [facility]. This test was developed and its performance characteristics determined by [facility]. It has not been cleared or approved by the FDA. The laboratory is regulated under CLIA as qualified to perform high-complexity testing. This test is used for clinical purposes. Test performed by LC-MS/MS at the [facility]. This test was developed and its performance characteristics determined by [facility]. It has not been cleared or approved by the FDA. The laboratory is regulated under CLIA as qualified to perform high-complexity testing. This test is used for clinical purposes. Maciel Olson MD LAB BLOOD ORDERABLES Final Resul t Performing Organization Address [facility] [address]/[facility] Co de Phone Number [facility] [address] [place] [address] * (ABNORMAL) Prothrombin Time/INR (01/08/2025 5:04 AM EST) Prothrombin Time 16.1(H) 12.0 - 14.3 sec LAB COAGULATION METHOD 01/08/2025 5:33 AM EST [facility] INR 1.3(H) 0.9 - 1.1 LAB COAGULATION METHOD 01/08/2025 5:33 AM EST [facility] Blood Venous blood specimen / Unknown Venipuncture / Unknown 01/08/2025 5:04 AM EST 01/08/2025 5:11 AM EST Narrative [facility] - 01/08/2025 5:33 AM EST OPTIMAL INR RANGES FOR PATIENT ON ORAL ANTICOAGULANT THERAPY Prevention of venous thromboembolism INR 2.0 to 3.0 In patients with heart disease: Atrial fibrillation INR 2.0 to 3.0 Valvular heart disease INR 2.0 to 3.0 Tissue heart valves INR 2.0 to 3.0 Mechanical prosthetic valves INR 2.5 to 3.5 Prevention of recurrent GA INR 2.5 to 3.5 Maciel Olson MD LAB BLOOD ORDERABLES Final Resul t Performing Organization Address [facility] [address]/[facility] Co de Phone Number [facility] [address] [place] [address] * Lavender Top (01/08/2025 4:56 AM EST) Extra Hold for add-ons 01/08/2025 8:01 AM EST [facility] Comment:Auto resulted. Blood Venous blood specimen / Unknown 01/08/2025 4:56 AM EST 01/08/2025 5:11 AM EST Maciel Olson MD LAB BLOOD ORDERABLES Final Resul t Performing Organization Address [facility]/ZIP Co de Phone Number [facility] [address] [place] [address] * (ABNORMAL) POCT glucose meter (01/07/2025 11:52 PM EST) POCT Glucose 135(H) 74 - 99 mg/dL 01/08/2025 12:00 AM EST [facility] Comment:Accuracy of a [...] 01/08/2025 12:00 AM EST [facility] Office Sweeper ID Darryl Kinsey 025 12:00 AM EST [facility] Device ID [id number] 01/08/2025 12:00 AM EST [facility] Specimen Type POC Capillary 01/08/2025 12:00 AM EST [facility] Blood Capillary blood specimen / Unknown 01/07/2025 11:52 PM EST 01/08/2025 12:00 AM EST Maciel Olson MD LAB POINT OF CARE TE ST DOCKED DEVICE UNSOLICITED RESULTS Final Result Performing Organization Address City/State/[facility] Co de Phone Number [facility] [address] [place] [address] * (ABNORMAL) POCT glucose meter (01/07/2025 8:57 PM EST) [facility] POCT Glucose 119(H) 74 - [...] for testing. Comment 01/07/2025 8:59 PM EST [facility] Office Sweeper ID TioDarryl 025 8:59 PM EST [facility] Device ID [id number] 01/07/2025 8:59 PM EST [facility] Specimen Type POC Capillary 01/07/2025 8:59 PM EST [facility] Blood Capillary blood specimen / Unknown 01/07/2025 8:57 PM EST 01/07/2025 8:59 PM EST us Maciel Olson MD LAB POINT OF CARE TE ST DOCKED DEVICE UNSOLICITED RESULTS Final Result Performing Organization Address City/[facility] [address]/ZIP Co de Phone Number [facility] [address] [place] [address] * Phosphorus, Plasma (01/07/2025 5:54 PM EST) Phosphorus, Plasma 3.7 2.5 - 4.5 mg/dL 01/07/2025 6:33 PM EST [facility] Blood Venous blood specimen / Unknown Venipuncture / Unknown 01/07/2025 5:54 PM EST 01/07/2025 6:02 PM EST us Maciel Olson MD LAB BLOOD ORDERABLES Final Resul t Performing Organization Address City/[facility] [address]/ZIP Co de Phone Number [facility] [address] [place] [address] * Magnesium, Plasma (01/07/2025 5:54 PM EST) Magnesium, Plasma 2.4 1.9 - 2.4 mg/dL 01/07/2025 6:33 PM EST [facility] Blood Venous blood specimen / Unknown Venipuncture / Unknown 01/07/2025 5:54 PM EST 01/07/2025 6:02 PM EST us Maciel Olson MD LAB BLOOD ORDERABLES Final Resul t Performing Organization Address City/[facility] [address]/ZIP Co de Phone Number [facility] [address] [place] [address] * (ABNORMAL) Comprehensive metabolic panel (01/07/2025 5:54 PM EST) Glucose, Plasma 159(H) 74 - 99 mg/dL 01/07/2025 6:33 PM EST [facility] BUN, Plasma 67(H) 7 - 21 mg/dL 01/07/2025 6:33 PM EST [facility] Creatinine, Plasma 1.89(H) 0.70 - 1.20 mg/dL 01/07/2025 6:33 PM [facility] BUN/Creatinine Ratio 35 01/07/2025 6:33 PM [facility] Sodium, Plasma 132(L) 136 - 145 mmol/L 01/07/2025 6:33 PM [facility] Potassium, Plasma 5.0(H) 3.6 - 4.9 mmol/L 01/07/2025 6:33 PM [facility] Chloride, Plasma 104 97 - 107 mmol/L 01/07/2025 6:33 PM [facility] CO2, Plasma 17(L) 22 - 29 mmol/L 01/07/2025 6:33 PM [facility] Anion Gap 11 6 - 16 mmol/L 01/07/2025 6:33 PM [facility] Total Calcium, Plasma 8.1(L) 8.9 - 10.2 mg/dL 01/07/2025 6:33 PM [facility] Total Protein 4.9(L) 6.3 - 7.9 g/dL 01/07/2025 6:33 PM [facility] Albumin, Plasma 3.0(L) 3.5 - 5.2 g/dL 01/07/2025 6:33 PM [facility] AST, Plasma 47 10 - 50 U/L 01/07/2025 6:33 PM [facility] Comment:Hemolyzed, result ma y be falsely increased. ALT, Plasma 104(H) 10 - 50 U/L 01/07/2025 6:33 PM [facility] Alkaline Phosphatase, Plasma 78 40 - 115 U/L 01/07/2025 6:33 PM [facility] Total Bilirubin, Plasma 3.1(H) 0.2 - 1.1 mg/dL 01/07/2025 6:33 PM [facility] eGFRcr 44.1 mL/min/1.7 3m*2 01/07/2025 6:33 PM [facility] Comment:Reported eGFRcr in m L/min/1.73m2 is based the CKD-EPI 2020 equation that does not use a race coefficient. Blood Venous blood specimen / Unknown Venipuncture / Unknown 01/07/2025 5:54 PM EST 01/07/2025 6:02 PM EST us Maciel Olson MD LAB BLOOD ORDERABLES Final Resul t [facility] [address] [place] [address] * (ABNORMAL) CBC and Differential (01/07/2025 5:54 PM EST) WBC Count 3.86 3.70 - 10.30 10*3/uL LAB HEMATOLOGY METHOD 01/07/2025 6:16 PM EST [facility] RBC Count 2.81(L) 4.60 - 6.10 10*6/uL LAB HEMATOLOGY METHOD 01/07/2025 6:16 PM EST [facility] HGB 8.7(L) 13.7 - 17.5 g/dL LAB HEMATOLOGY METHOD 01/07/2025 6:16 PM EST [facility] HCT 25.8(L) 40.0 - 51.0 % LAB HEMATOLOGY METHOD 01/07/2025 6:16 PM EST [facility] Platelet Count 48(L) 155 - 369 10*3/uL LAB HEMATOLOGY METHOD 01/07/2025 6:16 PM EST [facility] MCV 92 79 - 98 fL LAB HEMATOLOGY METHOD 01/07/2025 6:16 PM EST [facility] MCH 31.0 26.0 - 32.0 pg LAB HEMATOLOGY METHOD 01/07/2025 6:16 PM EST [facility] MCHC 33.7 30.7 - 35.5 g/dL LAB HEMATOLOGY METHOD 01/07/2025 6:16 PM EST [facility] RDW 20.0(H) 11.5 - 14.5 % LAB HEMATOLOGY METHOD 01/07/2025 6:16 PM EST [facility] MPV 10.4 8.8 - 12.5 fL LAB HEMATOLOGY METHOD 01/07/2025 6:16 PM EST [facility] nRBC 0.0 <=0.0 per 100 WBCs LAB HEMATOLOGY METHOD 01/07/2025 6:16 PM EST [facility] Differential Type Automated LAB HEMATOLOGY METHOD 01/07/2025 6:16 PM EST [facility] Neutrophils % 87 % LAB HEMATOLOGY METHOD 01/07/2025 6:16 PM EST [facility] Lymphocytes % 6 % LAB HEMATOLOGY METHOD 01/07/2025 6:16 PM EST [facility] Monocytes % 6 % LAB HEMATOLOGY METHOD 01/07/2025 6:16 PM EST [facility] Eosinophils % 0 % LAB HEMATOLOGY METHOD 01/07/2025 6:16 PM EST [facility] Basophils % 0 % LAB HEMATOLOGY METHOD 01/07/2025 6:16 PM EST [facility] Immature Granulocytes % 1 % LAB HEMATOLOGY METHOD 01/07/2025 6:16 PM EST [facility] Neutrophils Absolute 3.39 1.60 - 6.10 10*3/uL LAB HEMATOLOGY METHOD 01/07/2025 6:16 PM EST [facility] Lymphocytes Absolute 0.22(L) 1.20 - 3.90 10*3/uL LAB HEMATOLOGY METHOD 01/07/2025 6:16 PM EST [facility] Monocytes Absolute 0.22(L) 0.30 - 0.90 10*3/uL LAB HEMATOLOGY METHOD 01/07/2025 6:16 PM EST [facility] Eosinophils Absolute 0.00 0.00 - 0.50 10*3/uL LAB HEMATOLOGY METHOD 01/07/2025 6:16 PM EST [facility] Basophils Absolute 0.00 0.00 - 0.10 10*3/uL LAB HEMATOLOGY METHOD 01/07/2025 6:16 PM [facility] Immature Granulocytes Absolute 0.03 0.00 - 0.06 10*3/uL LAB HEMATOLOGY METHOD 01/07/2025 6:16 PM EST [facility] Blood Venous blood specimen / Unknown Venipuncture / Unknown 01/07/2025 5:54 PM EST 01/07/2025 6:04 PM EST [facility] - 01/07/2025 6:16 PM EST Therapeutic decision making should be based on absolute values, rather than percentages. us Maciel Olson MD LAB BLOOD ORDERABLES Final Resul t [facility] [address] [place] [address] * (ABNORMAL) POCT glucose meter (01/07/2025 5:35 PM EST) [facility] POCT Glucose 169(H) 74 - 99 mg/dL [...] 01/07/2025 5:37 PM EST [facility] Office Sweeper ID India Schultz 01/07/2025 5:37 PM EST [facility] Device ID [id number] 01/07/2025 5:37 PM EST [facility] Specimen Type POC Capillary 01/07/2025 5:37 PM EST [facility] Blood Capillary blood specimen / Unknown 01/07/2025 5:35 PM EST 01/07/2025 5:37 PM EST Maciel Olson MD LAB POINT OF CARE TE ST DOCKED DEVICE UNSOLICITED RESULTS Final Result Performing Organization Address City/State/[facility] Co de Phone Number [facility] [address] [place] [address] * (ABNORMAL) POCT glucose meter (01/07/2025 11:37 AM EST) [facility] POCT Glucose 130(H) 74 - 99 mg/dL 01/07/2025 11:38 AM EST [facility] Comment:Accuracy of a glucos e result [...] 01/07/2025 11:38 AM EST [facility] Office Sweeper ID India Schultz 01/07/2025 11:38 AM EST [facility] Device ID [id number] 01/07/2025 11:38 AM EST [facility] Specimen Type POC Capillary 01/07/2025 11:38 AM EST [facility] Blood Capillary blood specimen / Unknown 01/07/2025 11:37 AM EST 01/07/2025 11:38 AM EST us Maciel Olson MD LAB POINT OF CARE TE ST DOCKED DEVICE UNSOLICITED RESULTS Final Result Performing Organization Address [facility] de Phone Number HEALTHCARE LAB [address] [place] [address] * POCT glucose meter (01/07/2025 8:14 AM EST) Pathologist [facility] [...] Comment 01/07/2025 8:15 AM EST [facility]ALTHCARE LAB Office Sweeper ID India Schultz 01/07/2025 8:15 AM EST [facility]ARE LAB Device ID [id number] 01/07/2025 8:15 AM EST [facility] Specimen Type POC Capillary 01/07/2025 8:15 AM EST [facility] Blood Capillary blood specimen / Unknown 01/07/2025 8:14 AM EST 01/07/2025 8:15 AM EST us Maciel Olson MD LAB POINT OF CARE TE ST DOCKED DEVICE UNSOLICITED RESULTS Final Result Performing Organization Address City/[facility] [address]/[facility] Co de Phone Number HEALTHCARE LAB [address] [place] [address] * Phosphorus, Plasma (01/07/2025 7:31 AM EST) Phosphorus, Plasma 4.4 2.5 - 4.5 mg/dL 01/07/2025 8:09 AM EST [facility] Blood Venous blood specimen / Unknown Venipuncture / Unknown 01/07/2025 7:31 AM EST 01/07/2025 7:39 AM EST Maciel Olson MD LAB BLOOD ORDERABLES Final Resul t [facility] [address] [place] [address] * (ABNORMAL) Magnesium, Plasma (01/07/2025 7:31 AM EST) Magnesium, Plasma 2.6(H) 1.9 - 2.4 mg/dL 01/07/2025 8:09 AM EST [facility] Blood Venous blood specimen / Unknown Venipuncture / Unknown 01/07/2025 7:31 AM EST 01/07/2025 7:39 AM EST Maciel Olson MD LAB BLOOD ORDERABLES Final Resul t Performing Organization Address [facility] [address]/ZIP Co de Phone Number [facility] [address] [place] [address] * (ABNORMAL) Comprehensive metabolic panel (01/07/2025 7:31 AM EST) Glucose, Plasma 98 74 - 99 mg/dL 01/07/2025 8:09 AM EST [facility] BUN, Plasma 71(H) 7 - 21 mg/dL 01/07/2025 8:09 AM EST [facility] Creatinine, Plasma 2.10(H) 0.70 - 1.20 mg/dL 01/07/2025 8:09 AM EST [facility] BUN/Creatinine Ratio 34 01/07/2025 8:09 AM EST [facility] Sodium, Plasma 133(L) 136 - 145 mmol/L 01/07/2025 8:09 AM EST [facility] Potassium, Plasma 5.0(H) 3.6 - 4.9 mmol/L 01/07/2025 8:09 AM EST [facility] Chloride, Plasma 104 97 - 107 mmol/L 01/07/2025 8:09 AM EST [facility] CO2, Plasma 18(L) 22 - 29 mmol/L 01/07/2025 8:09 AM EST [facility] Anion Gap 11 6 - 16 mmol/L 01/07/2025 8:09 AM EST [facility] Total Calcium, Plasma 8.2(L) 8.9 - 10.2 mg/dL 01/07/2025 8:09 AM EST [facility] Total Protein 4.7(L) 6.3 - 7.9 g/dL 01/07/2025 8:09 AM EST [facility] Albumin, Plasma 2.9(L) 3.5 - 5.2 g/dL 01/07/2025 8:09 AM EST [facility] AST, Plasma 45 10 - 50 U/L 01/07/2025 8:09 AM EST [facility] ALT, Plasma 96(H) 10 - 50 U/L 01/07/2025 8:09 AM EST [facility] Alkaline Phosphatase, Plasma 69 40 - 115 U/L 01/07/2025 8:09 AM EST [facility] Total Bilirubin, Plasma 3.2(H) 0.2 - 1.1 mg/dL 01/07/2025 8:09 AM EST [facility] eGFRcr 38.8 mL/min/1.7 3m*2 01/07/2025 8:09 AM EST [facility] Comment:Reported eGFRcr in m L/min/1.73m2 is based the CKD-EPI 2020 equation that does not use a race coefficient. Blood Venous blood specimen / Unknown Venipuncture / Unknown 01/07/2025 7:31 AM EST 01/07/2025 7:39 AM EST us Maciel Olson MD LAB BLOOD ORDERABLES Final Resul t [facility] [address] [place] [address] * (ABNORMAL) CBC and Differential (01/07/2025 7:31 AM EST) WBC Count 5.55 3.70 - 10.30 10*3/uL LAB HEMATOLOGY METHOD 01/07/2025 7:46 AM EST [facility] RBC Count 2.74(L) 4.60 - 6.10 10*6/uL LAB HEMATOLOGY METHOD 01/07/2025 7:46 AM EST [facility] HGB 8.6(L) 13.7 - 17.5 g/dL LAB HEMATOLOGY METHOD 01/07/2025 7:46 AM EST [facility] HCT 24.8(L) 40.0 - 51.0 % LAB HEMATOLOGY METHOD 01/07/2025 7:46 AM [facility] Platelet Count 49(L) 155 - 369 10*3/uL LAB HEMATOLOGY METHOD 01/07/2025 7:46 AM [facility] MCV 91 79 - 98 fL LAB HEMATOLOGY METHOD 01/07/2025 7:46 AM EST [facility] MCH 31.4 26.0 - 32.0 pg LAB HEMATOLOGY METHOD 01/07/2025 7:46 AM EST [facility] MCHC 34.7 30.7 - 35.5 g/dL LAB HEMATOLOGY METHOD 01/07/2025 7:46 AM [facility] RDW 20.3(H) 11.5 - 14.5 % LAB HEMATOLOGY METHOD 01/07/2025 7:46 AM [facility] MPV 11.1 8.8 - 12.5 fL LAB HEMATOLOGY METHOD 01/07/2025 7:46 AM [facility] nRBC 0.0 <=0.0 per 100 WBCs LAB HEMATOLOGY METHOD 01/07/2025 7:46 AM [facility] Differential Type Automated LAB HEMATOLOGY METHOD 01/07/2025 7:46 AM [facility] Neutrophils % 76 % LAB HEMATOLOGY METHOD 01/07/2025 7:46 AM [facility] Lymphocytes % 7 % LAB HEMATOLOGY METHOD 01/07/2025 7:46 AM [facility] Monocytes % 16 % LAB HEMATOLOGY METHOD 01/07/2025 7:46 AM [facility] Eosinophils % 0 % LAB HEMATOLOGY METHOD 01/07/2025 7:46 AM [facility] Basophils % 0 % LAB HEMATOLOGY METHOD 01/07/2025 7:46 AM [facility] Immature Granulocytes % 1 % LAB HEMATOLOGY METHOD 01/07/2025 7:46 AM [facility] Neutrophils Absolute 4.26 1.60 - 6.10 10*3/uL LAB HEMATOLOGY METHOD 01/07/2025 7:46 AM [facility] Lymphocytes Absolute 0.38(L) 1.20 - 3.90 10*3/uL LAB HEMATOLOGY METHOD 01/07/2025 7:46 AM EST [facility] Monocytes Absolute 0.88 0.30 - 0.90 10*3/uL LAB HEMATOLOGY METHOD 01/07/2025 7:46 AM EST [facility] Eosinophils Absolute 0.00 0.00 - 0.50 10*3/uL LAB HEMATOLOGY METHOD 01/07/2025 7:46 AM EST [facility] Basophils Absolute 0.00 0.00 - 0.10 10*3/uL LAB HEMATOLOGY METHOD 01/07/2025 7:46 AM EST [facility] Immature Granulocytes Absolute 0.03 0.00 - 0.06 10*3/uL LAB HEMATOLOGY METHOD 01/07/2025 7:46 AM EST [facility] Blood Venous blood specimen / Unknown Venipuncture / Unknown 01/07/2025 7:31 AM EST 01/07/2025 7:38 AM EST Narrative [facility] - 01/07/2025 7:46 AM EST Therapeutic decision making should be based on absolute values, rather than percentages. us Maciel Olson MD LAB BLOOD ORDERABLES Final Resul t [facility] [address] [place] [address] * (ABNORMAL) POCT glucose meter (01/07/2025 6:02 AM EST) POCT Glucose 104(H) 74 - 99 mg/dL 01/07/2025 7:17 AM EST [employer] [facility] Comment:Accuracy of a glucos e result [...] Comment 01/07/2025 7:17 AM EST HEALTHCARE LAB Office Sweeper ID Darryl Kinsey 025 7:17 AM EST HEALTHCARE LAB Device ID [id number] 01/07/2025 7:17 AM EST [facility]ALTHCARE LAB Specimen Type POC Capillary 01/07/2025 7:17 AM EST [facility] Blood Capillary blood specimen / Unknown 01/07/2025 6:02 AM EST 01/07/2025 7:17 AM EST Macile Olson MD LAB POINT OF CARE TE ST DOCKED DEVICE UNSOLICITED RESULTS Final Result Performing Organization Address City/[facility] [address]/ZIP Ga de Phone Number [facility] [address] [place] [address] * Tacrolimus (01/07/2025 4:38 AM EST) Tacrolimus 11.1 4.0 - 17.0 ng/mL 01/07/2025 8:41 AM EST [facility] Comment: Tacrolimus therapeutic range: Initial (<3 mo.) Maintenance Kidney 8-13 ng/mL 4-8 ng/mL Liver 8-13 ng/mL 4-8 ng/mL Heart 8-15 ng/mL 7-13 ng/mL Lung;Heart/Lung 8-17 ng/mL 8-13 ng/mL Blood Venous blood specimen / Unknown Venipuncture / Unknown 01/07/2025 4:38 AM EST 01/07/2025 4:57 AM EST Narrative [facility] - 01/07/2025 8:41 AM EST Test performed by LC-MS/MS at the [facility]. This test was developed and its performance characteristics determined by [facility]. It has not been cleared or approved by the FDA. The laboratory is regulated under CLIA as qualified to perform high-complexity testing. This test is used for clinical purposes. Test performed by LC-MS/MS at the [facility]. This test was developed and its performance characteristics determined by [facility]. It has not been cleared or approved by the FDA. The laboratory is regulated under CLIA as qualified to perform high-complexity testing. This test is used for clinical purposes. Maciel Olson MD LAB BLOOD ORDERABLES Final Resul t [facility] [address] [place] [address] * (ABNORMAL) POCT glucose meter (01/07/2025 12:56 AM EST) Pathologist [facility] POCT Glucose 107(H) 74 - 99 mg/dL 01/07/2025 12:57 AM EST [facility] Comment:Accuracy of a glucos [...] for testing. Comment 01/07/2025 12:57 AM EST [facility] Office Sweeper ID Isabel Shepherd [id number] 12:57 AM EST [facility] Device ID [id number] 01/07/2025 12:57 AM EST [facility] Specimen Type POC Venous 01/07/2025 12:57 AM EST [facility] Blood Venous blood specimen / Unknown 01/07/2025 12:56 AM EST 01/07/2025 12:57 AM EST Maciel Olson MD LAB POINT OF CARE TE ST DOCKED DEVICE UNSOLICITED RESULTS Final Result Performing Organization Address City/State/[facility] Co de Phone Number [facility] [address] [place] [address] * (ABNORMAL) Prothrombin Time/INR (01/07/2025 12:56 AM EST) [facility] Prothrombin Time 16.5(H) 12.0 - 14.3 sec LAB COAGULATION METHOD 01/07/2025 1:30 AM EST [facility] INR 1.3(H) 0.9 - 1.1 LAB COAGULATION METHOD 01/07/2025 1:30 AM EST [facility] Blood Blood sample taken from central line / Unknown (Central Line) Existing Catheter / Unknown 01/07/2025 12:56 AM EST 01/07/2025 1:01 AM EST Narrative [facility] - 01/07/2025 1:30 AM EST OPTIMAL INR RANGES FOR PATIENT ON ORAL ANTICOAGULANT THERAPY Prevention of venous thromboembolism INR 2.0 to 3.0 In patients with heart disease: Atrial fibrillation INR 2.0 to 3.0 Valvular heart disease INR 2.0 to 3.0 Tissue heart valves INR 2.0 to 3.0 Mechanical prosthetic valves INR 2.5 to 3.5 Prevention of recurrent GA INR 2.5 to 3.5 Maciel Olson MD LAB BLOOD ORDERABLES Final Resul t Performing Organization Address City/[facility] [address]/[facility] Co de Phone Number [facility] [address] [place] [address] * (ABNORMAL) POCT glucose meter (01/06/2025 6:00 PM EST) POCT Glucose 130(H) 74 - 99 mg/dL 01/06/2025 6:01 PM EST [facility] Comment:Accuracy of a glucos [...] for testing. Comment 01/06/2025 6:01 PM EST [facility] Office Sweeper ID Galileo Abdi 6:01 PM EST [facility] Device ID [id number] 01/06/2025 6:01 PM EST [facility] Specimen Type POC Venous 01/06/2025 6:01 PM EST [facility] Blood Venous blood specimen / Unknown 01/06/2025 6:00 PM EST 01/06/2025 6:01 PM EST Maciel Olson MD LAB POINT OF CARE TE ST DOCKED DEVICE UNSOLICITED RESULTS Final Result Performing Organization Address City/[facility] [address]/[facility] Co de Phone Number HEALTHCARE LAB [address] [place] [address] * (ABNORMAL) Phosphorus, Plasma (01/06/2025 6:00 PM EST) Phosphorus, Plasma 5.2(H) 2.5 - 4.5 mg/dL 01/06/2025 6:53 PM EST [facility] Blood Venous blood specimen / Unknown Venipuncture / Unknown 01/06/2025 6:00 PM EST 01/06/2025 6:21 PM EST Maciel Olson MD LAB BLOOD ORDERABLES Final Resul t [facility] [address] [place] [address] * (ABNORMAL) Magnesium, Plasma (01/06/2025 6:00 PM EST) Magnesium, Plasma 2.6(H) 1.9 - 2.4 mg/dL 01/06/2025 6:53 PM EST [facility] Blood Venous blood specimen / Unknown Venipuncture / Unknown 01/06/2025 6:00 PM EST 01/06/2025 6:21 PM EST Maciel Olson MD LAB BLOOD ORDERABLES Final Resul t Performing Organization Address City/[facility] [address]/ZIP Co de Phone Number [facility] [address] [place] [address] * (ABNORMAL) Comprehensive metabolic panel (01/06/2025 6:00 PM EST) Glucose, Plasma 121(H) 74 - 99 mg/dL 01/06/2025 6:53 PM EST [facility] BUN, Plasma 67(H) 7 - 21 mg/dL 01/06/2025 6:53 PM EST [facility] Creatinine, Plasma 2.27(H) 0.70 - 1.20 mg/dL 01/06/2025 6:53 PM EST [facility] BUN/Creatinine Ratio 30 01/06/2025 6:53 PM EST [facility] Sodium, Plasma 129(L) 136 - 145 mmol/L 01/06/2025 6:53 PM EST [facility] Potassium, Plasma 4.9 3.6 - 4.9 mmol/L 01/06/2025 6:53 PM EST [facility] Chloride, Plasma 101 97 - 107 mmol/L 01/06/2025 6:53 PM EST [facility] CO2, Plasma 17(L) 22 - 29 mmol/L 01/06/2025 6:53 PM EST [facility] Anion Gap 11 6 - 16 mmol/L 01/06/2025 6:53 PM EST [facility] Total Calcium, Plasma 8.3(L) 8.9 - 10.2 mg/dL 01/06/2025 6:53 PM EST [facility] Total Protein 5.0(L) 6.3 - 7.9 g/dL 01/06/2025 6:53 PM EST [facility] Albumin, Plasma 3.2(L) 3.5 - 5.2 g/dL 01/06/2025 6:53 PM EST [facility] AST, Plasma 51(H) 10 - 50 U/L 01/06/2025 6:53 PM EST [facility] ALT, Plasma 107(H) 10 - 50 U/L 01/06/2025 6:53 PM EST [facility] Alkaline Phosphatase, Plasma 72 40 - 115 U/L 01/06/2025 6:53 PM EST [facility] Total Bilirubin, Plasma 3.7(H) 0.2 - 1.1 mg/dL 01/06/2025 6:53 PM EST [facility] eGFRcr 35.4 mL/min/1.7 3m*2 01/06/2025 6:53 PM EST [facility] Comment:Reported eGFRcr in m L/min/1.73m2 is based the CKD-EPI 2020 equation that does not use a race coefficient. Blood Venous blood specimen / Unknown Venipuncture / Unknown 01/06/2025 6:00 PM EST 01/06/2025 6:21 PM EST us Maciel Olson MD LAB BLOOD ORDERABLES Final Resul t [facility] [address] [place] [address] * (ABNORMAL) CBC and Differential (01/06/2025 6:00 PM EST) WBC Count 5.07 3.70 - 10.30 10*3/uL LAB HEMATOLOGY METHOD 01/06/2025 6:40 PM EST [facility] RBC Count 2.93(L) 4.60 - 6.10 10*6/uL LAB HEMATOLOGY METHOD 01/06/2025 6:40 PM EST [facility] HGB 9.1(L) 13.7 - 17.5 g/dL LAB HEMATOLOGY METHOD 01/06/2025 6:40 PM EST [facility] HCT 26.3(L) 40.0 - 51.0 % LAB HEMATOLOGY METHOD 01/06/2025 6:40 PM [facility] Platelet Count 55(L) 155 - 369 10*3/uL LAB HEMATOLOGY METHOD 01/06/2025 6:40 PM [facility] MCV 90 79 - 98 fL LAB HEMATOLOGY METHOD 01/06/2025 6:40 PM [facility] MCH 31.1 26.0 - 32.0 pg LAB HEMATOLOGY METHOD 01/06/2025 6:40 PM EST [facility] MCHC 34.6 30.7 - 35.5 g/dL LAB HEMATOLOGY METHOD 01/06/2025 6:40 PM [facility] RDW 20.1(H) 11.5 - 14.5 % LAB HEMATOLOGY METHOD 01/06/2025 6:40 PM [facility] MPV 10.6 8.8 - 12.5 fL LAB HEMATOLOGY METHOD 01/06/2025 6:40 PM [facility] nRBC 0.0 <=0.0 per 100 WBCs LAB HEMATOLOGY METHOD 01/06/2025 6:40 PM [facility] Differential Type Automated LAB HEMATOLOGY METHOD 01/06/2025 6:40 PM [facility] Neutrophils % 86 % LAB HEMATOLOGY METHOD 01/06/2025 6:40 PM [facility] Lymphocytes % 5 % LAB HEMATOLOGY METHOD 01/06/2025 6:40 PM [facility] Monocytes % 8 % LAB HEMATOLOGY METHOD 01/06/2025 6:40 PM [facility] Eosinophils % 0 % LAB HEMATOLOGY METHOD 01/06/2025 6:40 PM [facility] Basophils % 0 % LAB HEMATOLOGY METHOD 01/06/2025 6:40 PM [facility] Immature Granulocytes % 1 % LAB HEMATOLOGY METHOD 01/06/2025 6:40 PM [facility] Neutrophils Absolute 4.41 1.60 - 6.10 10*3/uL LAB HEMATOLOGY METHOD 01/06/2025 6:40 PM [facility] Lymphocytes Absolute 0.24(L) 1.20 - 3.90 10*3/uL LAB HEMATOLOGY METHOD 01/06/2025 6:40 PM EST [facility] Monocytes Absolute 0.39 0.30 - 0.90 10*3/uL LAB HEMATOLOGY METHOD 01/06/2025 6:40 PM EST [facility] Eosinophils Absolute 0.00 0.00 - 0.50 10*3/uL LAB HEMATOLOGY METHOD 01/06/2025 6:40 PM EST [facility] Basophils Absolute 0.00 0.00 - 0.10 10*3/uL LAB HEMATOLOGY METHOD 01/06/2025 6:40 PM EST [facility] Immature Granulocytes Absolute 0.03 0.00 - 0.06 10*3/uL LAB HEMATOLOGY METHOD 01/06/2025 6:40 PM EST [facility] Blood Venous blood specimen / Unknown Venipuncture / Unknown 01/06/2025 6:00 PM EST 01/06/2025 6:29 PM EST Narrative [facility] - 01/06/2025 6:40 PM EST Therapeutic decision making should be based on absolute values, rather than percentages. us Maciel Olson MD LAB BLOOD ORDERABLES Final Resul t [facility] [address] [place] [address] * POCT glucose meter (01/06/2025 5:07 PM EST) POCT Glucose 79 74 - 99 mg/dL 01/06/2025 5:08 PM EST [facility] LAB Comment:Accuracy of a [...] Comment 01/06/2025 5:08 PM EST [facility] Office Sweeper ID Galileo Abdi 5:08 PM EST [facility] Device ID [id number] 01/06/2025 5:08 PM EST [facility] LAB Specimen Type POC Venous 01/06/2025 5:08 PM EST [facility] Blood Venous blood specimen / Unknown 01/06/2025 5:07 PM EST 01/06/2025 5:08 PM EST Maciel Olson MD LAB POINT OF CARE TE ST DOCKED DEVICE UNSOLICITED RESULTS Final Result Performing Organization Address [facility] de Phone Number [facility]ALTH[facility]ARE LAB [address] [place] [address] * (ABNORMAL) POCT glucose meter (01/06/2025 11:47 AM EST) POCT Glucose 106(H) 74 - 99 mg/dL 01/06/2025 11:49 AM EST [facility] Comment:Accuracy of a [...] for testing. Comment 01/06/2025 11:49 AM EST [facility] Office Sweeper ID Galileo Abdi 11:49 AM EST [facility] LAB Device ID [id number] 01/06/2025 11:49 AM EST [facility] Specimen Type POC Venous 01/06/2025 11:49 AM EST [facility] Blood Venous blood specimen / Unknown 01/06/2025 11:47 AM EST 01/06/2025 11:49 AM EST Maciel Olson MD LAB POINT OF CARE TE ST DOCKED DEVICE UNSOLICITED RESULTS Final Result Performing Organization Address [facility] [address]/[facility] de Phone Number [facility]ALTH[facility]ARE LAB [address] [place] [address] * (ABNORMAL) Prothrombin Time/INR (01/06/2025 11:44 AM EST) Prothrombin Time 17.0(H) 12.0 - 14.3 sec LAB COAGULATION METHOD 01/06/2025 12:20 PM EST [facility] INR 1.4(H) 0.9 - 1.1 LAB COAGULATION METHOD 01/06/2025 12:20 PM EST [facility] Blood Venous blood specimen / Unknown Venipuncture / Unknown 01/06/2025 11:44 AM EST 01/06/2025 11:55 AM EST Narrative [facility] - 01/06/2025 12:20 PM EST OPTIMAL INR RANGES FOR PATIENT ON ORAL ANTICOAGULANT THERAPY Prevention of venous thromboembolism INR 2.0 to 3.0 In patients with heart disease: Atrial fibrillation INR 2.0 to 3.0 Valvular heart disease INR 2.0 to 3.0 Tissue heart valves INR 2.0 to 3.0 Mechanical prosthetic valves INR 2.5 to 3.5 Prevention of recurrent GA INR 2.5 to 3.5 us Satnam Beckford MD LAB BLOOD ORDERABLES Final Result [facility] [address] [place] [address] * XR Abdomen 1 View (01/06/2025 8:47 [...] MD on 01/06/2025 9:33 AM Kamila Bashir SHIFTMAN IMG XR PROCEDURES Final Resu lt * (ABNORMAL) Phosphorus, Plasma (01/06/2025 7:36 AM EST) Phosphorus, Plasma 5.5(H) 2.5 - 4.5 mg/dL 01/06/2025 8:25 AM EST [facility] Blood Venous blood specimen / Unknown Venipuncture / Unknown 01/06/2025 7:36 AM EST 01/06/2025 7:59 AM EST Maciel Olson MD LAB BLOOD ORDERABLES Final Resul t Performing Organization Address [facility] [address]/[facility] Co de Phone Number [facility] [address] [place] [address] * (ABNORMAL) Magnesium, Plasma (01/06/2025 7:36 AM EST) Magnesium, Plasma 2.6(H) 1.9 - 2.4 mg/dL 01/06/2025 8:25 AM EST [facility] Blood Venous blood specimen / Unknown Venipuncture / Unknown 01/06/2025 7:36 AM EST 01/06/2025 7:59 AM EST Maciel Olson MD LAB BLOOD ORDERABLES Final Resul t Performing Organization Address City/[facility] [address]/[facility] Co de Phone Number [facility] [address] [place] [address] * (ABNORMAL) Comprehensive metabolic panel (01/06/2025 7:36 AM EST) [facility] Glucose, Plasma 101(H) 74 - 99 mg/dL 01/06/2025 8:25 AM [facility] BUN, Plasma 63(H) 7 - 21 mg/dL 01/06/2025 8:25 AM [facility] Creatinine, Plasma 2.22(H) 0.70 - 1.20 mg/dL 01/06/2025 8:25 AM [facility] BUN/Creatinine Ratio 28 01/06/2025 8:25 AM [facility] Sodium, Plasma 129(L) 136 - 145 mmol/L 01/06/2025 8:25 AM [facility] Potassium, Plasma 4.7 3.6 - 4.9 mmol/L 01/06/2025 8:25 AM [facility] Chloride, Plasma 101 97 - 107 mmol/L 01/06/2025 8:25 AM [facility] CO2, Plasma 15(L) 22 - 29 mmol/L 01/06/2025 8:25 AM [facility] Anion Gap 13 6 - 16 mmol/L 01/06/2025 8:25 AM [facility] Total Calcium, Plasma 8.5(L) 8.9 - 10.2 mg/dL 01/06/2025 8:25 AM [facility] Total Protein 5.3(L) 6.3 - 7.9 g/dL 01/06/2025 8:25 AM [facility] Albumin, Plasma 3.3(L) 3.5 - 5.2 g/dL 01/06/2025 8:25 AM [facility] AST, Plasma 64(H) 10 - 50 U/L 01/06/2025 8:25 AM [facility] ALT, Plasma 117(H) 10 - 50 U/L 01/06/2025 8:25 AM [facility] Alkaline Phosphatase, Plasma 68 40 - 115 U/L 01/06/2025 8:25 AM [facility] Total Bilirubin, Plasma 4.1(H) 0.2 - 1.1 mg/dL 01/06/2025 8:25 AM [facility] eGFRcr 36.3 mL/min/1.7 3m*2 01/06/2025 8:25 AM EST [facility] Comment:Reported eGFRcr in m L/min/1.73m2 is based the CKD-EPI 2020 equation that does not use a race coefficient. Blood Venous blood specimen / Unknown Venipuncture / Unknown 01/06/2025 7:36 AM EST 01/06/2025 7:59 AM EST Maciel Olson MD LAB BLOOD ORDERABLES Final Resul t Performing Organization Address City/[facility] [address]/[facility] Co de Phone Number [facility] [address] [place] [address] * (ABNORMAL) Prothrombin Time/INR (01/06/2025 7:36 AM EST) Prothrombin Time 17.6(H) 12.0 - 14.3 sec LAB COAGULATION METHOD 01/06/2025 7:58 AM EST [facility] INR 1.4(H) 0.9 - 1.1 LAB COAGULATION METHOD 01/06/2025 7:58 AM EST [facility] Blood Venous blood specimen / Unknown Venipuncture / Unknown 01/06/2025 7:36 AM EST 01/06/2025 7:43 AM EST Narrative [facility] - 01/06/2025 7:58 AM EST OPTIMAL INR RANGES FOR PATIENT ON ORAL ANTICOAGULANT THERAPY Prevention of venous thromboembolism INR 2.0 to 3.0 In patients with heart disease: Atrial fibrillation INR 2.0 to 3.0 Valvular heart disease INR 2.0 to 3.0 Tissue heart valves INR 2.0 to 3.0 Mechanical prosthetic valves INR 2.5 to 3.5 Prevention of recurrent GA INR 2.5 to 3.5 us Satnam Beckford MD LAB BLOOD ORDERABLES Final Result Performing Organization Address City/[facility] [address]/ZIP Co de Phone Number [facility] [address] [place] [address] * (ABNORMAL) CBC W/O Differential (01/06/2025 7:36 AM EST) WBC Count 6.33 3.70 - 10.30 10*3/uL LAB HEMATOLOGY METHOD 01/06/2025 8:10 AM EST [facility] RBC Count 2.94(L) 4.60 - 6.10 10*6/uL LAB HEMATOLOGY METHOD 01/06/2025 8:10 AM EST [facility] HGB 9.0(L) 13.7 - 17.5 g/dL LAB HEMATOLOGY METHOD 01/06/2025 8:10 AM EST [facility] HCT 26.2(L) 40.0 - 51.0 % LAB HEMATOLOGY METHOD 01/06/2025 8:10 AM EST [facility] Platelet Count 47(L) 155 - 369 10*3/uL LAB HEMATOLOGY METHOD 01/06/2025 8:10 AM EST [facility] MCV 89 79 - 98 fL LAB HEMATOLOGY METHOD 01/06/2025 8:10 AM EST [facility] MCH 30.6 26.0 - 32.0 pg LAB HEMATOLOGY METHOD 01/06/2025 8:10 AM EST [facility] MCHC 34.4 30.7 - 35.5 g/dL LAB HEMATOLOGY METHOD 01/06/2025 8:10 AM EST [facility] RDW 19.9(H) 11.5 - 14.5 % LAB HEMATOLOGY METHOD 01/06/2025 8:10 AM EST [facility] MPV 10.4 8.8 - 12.5 fL LAB HEMATOLOGY METHOD 01/06/2025 8:10 AM EST [facility] nRBC 0.0 <=0.0 per 100 WBCs LAB HEMATOLOGY METHOD 01/06/2025 8:10 AM EST [facility] Blood Venous blood specimen / Unknown Venipuncture / Unknown 01/06/2025 7:36 AM EST 01/06/2025 8:03 AM EST us Satnam Beckford MD LAB BLOOD ORDERABLES Final Result [facility] [address] [place] [address] * Tacrolimus (01/06/2025 5:15 AM EST) Tacrolimus 13.6 4.0 - 17.0 ng/mL 01/06/2025 7:49 AM EST [facility] Comment: Tacrolimus therapeutic range: Initial (<3 mo.) Maintenance Kidney 8-13 ng/mL 4-8 ng/mL Liver 8-13 ng/mL 4-8 ng/mL Heart 8-15 ng/mL 7-13 ng/mL Lung;Heart/Lung 8-17 ng/mL 8-13 ng/mL Blood Venous blood specimen / Unknown Venipuncture / Unknown 01/06/2025 5:15 AM EST 01/06/2025 5:24 AM EST Narrative [facility] - 01/06/2025 7:49 AM EST Test performed by LC-MS/MS at the [facility]. This test was developed and its performance characteristics determined by [facility]. It has not been cleared or approved by the FDA. The laboratory is regulated under CLIA as qualified to perform high-complexity testing. This test is used for clinical purposes. Test performed by LC-MS/MS at the [facility]. This test was developed and its performance characteristics determined by [facility]. It has not been cleared or approved by the FDA. The laboratory is regulated under CLIA as qualified to perform high-complexity testing. This test is used for clinical purposes. Satnam Beckford MD LAB BLOOD ORDERABLES Final Result [facility] [address] [place] [address] * (ABNORMAL) Prothrombin Time/INR (01/06/2025 4:27 AM EST) Prothrombin Time 17.6(H) 12.0 - 14.3 sec LAB COAGULATION METHOD 01/06/2025 5:13 AM EST [facility] INR 1.4(H) 0.9 - 1.1 LAB COAGULATION METHOD 01/06/2025 5:13 AM EST [facility] Blood Venous blood specimen / Unknown Venipuncture / Unknown 01/06/2025 4:27 AM EST 01/06/2025 4:37 AM EST Narrative [facility] - 01/06/2025 5:13 AM EST OPTIMAL INR RANGES FOR PATIENT ON ORAL ANTICOAGULANT THERAPY Prevention of venous thromboembolism INR 2.0 to 3.0 In patients with heart disease: Atrial fibrillation INR 2.0 to 3.0 Valvular heart disease INR 2.0 to 3.0 Tissue heart valves INR 2.0 to 3.0 Mechanical prosthetic valves INR 2.5 to 3.5 Prevention of recurrent GA INR 2.5 to 3.5 Satnam Beckford MD LAB BLOOD ORDERABLES Final Result [facility] [address] [place] [address] * (ABNORMAL) CBC W/O Differential (01/06/2025 4:27 AM EST) WBC Count 6.02 3.70 - 10.30 10*3/uL LAB HEMATOLOGY METHOD 01/06/2025 4:46 AM EST [facility] RBC Count 2.83(L) 4.60 - 6.10 10*6/uL LAB HEMATOLOGY METHOD 01/06/2025 4:46 AM EST [facility] HGB 8.5(L) 13.7 - 17.5 g/dL LAB HEMATOLOGY METHOD 01/06/2025 4:46 AM EST [facility] HCT 25.1(L) 40.0 - 51.0 % LAB HEMATOLOGY METHOD 01/06/2025 4:46 AM EST [facility] Platelet Count 45(L) 155 - 369 10*3/uL LAB HEMATOLOGY METHOD 01/06/2025 4:46 AM EST [facility] MCV 89 79 - 98 fL LAB HEMATOLOGY METHOD 01/06/2025 4:46 AM EST [facility] MCH 30.0 26.0 - 32.0 pg LAB HEMATOLOGY METHOD 01/06/2025 4:46 AM EST [facility] MCHC 33.9 30.7 - 35.5 g/dL LAB HEMATOLOGY METHOD 01/06/2025 4:46 AM EST [facility] RDW 19.6(H) 11.5 - 14.5 % LAB HEMATOLOGY METHOD 01/06/2025 4:46 AM EST [facility] MPV 10.0 8.8 - 12.5 fL LAB HEMATOLOGY METHOD 01/06/2025 4:46 AM EST [facility] nRBC 0.0 <=0.0 per 100 WBCs LAB HEMATOLOGY METHOD 01/06/2025 4:46 AM EST [facility] Blood Venous blood specimen / Unknown Venipuncture / Unknown 01/06/2025 4:27 AM EST 01/06/2025 4:37 AM EST Satnam Beckford MD LAB BLOOD ORDERABLES Final Result [facility] [address] [place] [address] * XR Chest 1 View (01/06/2025 2:41 AM EST) Anatomical Region Laterality Modality Chest Digital Radiogra phy Impressions 01/06/2025 5:47 AM EST Persistent hypoventilatory changes with scattered, basilar predominant airspace disease and atelectasis. No new consolidation. CRITICAL RESULT: No. COMMUNICATION: Per this written report. Drafted by Craoline Veras MD on 01/06/2025 5:44 AM Final [...] - 99 mg/dL 01/06/2025 12:22 AM EST [facility] Comment:Accuracy of a glucos [...] for testing. Comment 01/06/2025 12:22 AM EST [facility] Office Sweeper ID Sarah Montanez 01/06/2025 12:22 AM EST [employer] LAB Device ID [id number] 01/06/2025 12:22 AM EST [facility] Specimen Type POC Arterial 01/06/2025 12:22 AM EST [facility] Blood Arterial blood specimen / Unknown 01/06/2025 12:19 AM EST 01/06/2025 12:22 AM EST Maciel Olson MD LAB POINT OF CARE TE ST DOCKED DEVICE UNSOLICITED RESULTS Final Result Performing Organization Address City/[facility] [address]/ZIP Co de Phone Number [facility] [address] [place] [address] * (ABNORMAL) Phosphorus, Plasma (01/06/2025 12:15 AM EST) Phosphorus, Plasma 5.9(H) 2.5 - 4.5 mg/dL 01/06/2025 1:00 AM EST [facility] Blood Venous blood specimen / Unknown Venipuncture / Unknown 01/06/2025 12:15 AM EST 01/06/2025 12:27 AM EST Maciel Olson MD LAB BLOOD ORDERABLES Final Resul t [facility] [address] [place] [address] * (ABNORMAL) Magnesium, Plasma (01/06/2025 12:15 AM EST) Magnesium, Plasma 2.6(H) 1.9 - 2.4 mg/dL 01/06/2025 1:00 AM EST [facility] Blood Venous blood specimen / Unknown Venipuncture / Unknown 01/06/2025 12:15 AM EST 01/06/2025 12:27 AM EST us Maciel Olson MD LAB BLOOD ORDERABLES Final Resul t [facility] [address] [place] [address] * (ABNORMAL) Comprehensive metabolic panel (01/06/2025 12:15 AM EST) Glucose, Plasma 105(H) 74 - 99 mg/dL 01/06/2025 1:00 AM EST [facility] BUN, Plasma 60(H) 7 - 21 mg/dL 01/06/2025 1:00 AM EST [facility] Creatinine, Plasma 2.21(H) 0.70 - 1.20 mg/dL 01/06/2025 1:00 AM EST [facility] BUN/Creatinine Ratio 27 01/06/2025 1:00 AM EST [facility] Sodium, Plasma 132(L) 136 - 145 mmol/L 01/06/2025 1:00 AM EST [facility] Potassium, Plasma 4.9 3.6 - 4.9 mmol/L 01/06/2025 1:00 AM EST [facility] Chloride, Plasma 103 97 - 107 mmol/L 01/06/2025 1:00 AM EST [facility] CO2, Plasma 17(L) 22 - 29 mmol/L 01/06/2025 1:00 AM EST [facility] Anion Gap 12 6 - 16 mmol/L 01/06/2025 1:00 AM EST [facility] Total Calcium, Plasma 8.5(L) 8.9 - 10.2 mg/dL 01/06/2025 1:00 AM EST [facility] Total Protein 5.1(L) 6.3 - 7.9 g/dL 01/06/2025 1:00 AM EST [facility] Albumin, Plasma 3.2(L) 3.5 - 5.2 g/dL 01/06/2025 1:00 AM EST [facility] AST, Plasma 70(H) 10 - 50 U/L 01/06/2025 1:00 AM EST [facility] ALT, Plasma 116(H) 10 - 50 U/L 01/06/2025 1:00 AM EST [facility] Alkaline Phosphatase, Plasma 57 40 - 115 U/L 01/06/2025 1:00 AM EST [facility] Total Bilirubin, Plasma 4.2(H) 0.2 - 1.1 mg/dL 01/06/2025 1:00 AM EST [facility] eGFRcr 36.5 mL/min/1.7 3m*2 01/06/2025 1:00 AM EST [facility] Comment:Reported eGFRcr in m L/min/1.73m2 is based the CKD-EPI 2020 equation that does not use a race coefficient. Blood Venous blood specimen / Unknown Venipuncture / Unknown 01/06/2025 12:15 AM EST 01/06/2025 12:27 AM EST Maciel Olson MD LAB BLOOD ORDERABLES Final Resul t [facility] [address] [place] [address] * (ABNORMAL) Prothrombin Time/INR (01/06/2025 12:15 AM EST) Prothrombin Time 17.8(H) 12.0 - 14.3 sec LAB COAGULATION METHOD 01/06/2025 12:49 AM EST [facility] INR 1.4(H) 0.9 - 1.1 LAB COAGULATION METHOD 01/06/2025 12:49 AM EST [facility] Blood Venous blood specimen / Unknown Venipuncture / Unknown 01/06/2025 12:15 AM EST 01/06/2025 12:28 AM EST Narrative [facility] - 01/06/2025 12:49 AM EST OPTIMAL INR RANGES FOR PATIENT ON ORAL ANTICOAGULANT THERAPY Prevention of venous thromboembolism INR 2.0 to 3.0 In patients with heart disease: Atrial fibrillation INR 2.0 to 3.0 Valvular heart disease INR 2.0 to 3.0 Tissue heart valves INR 2.0 to 3.0 Mechanical prosthetic valves INR 2.5 to 3.5 Prevention of recurrent GA INR 2.5 to 3.5 Satnam Beckford MD LAB BLOOD ORDERABLES Final Result [facility] [address] [place] [address] * (ABNORMAL) CBC W/O Differential (01/06/2025 12:15 AM EST) WBC Count 6.50 3.70 - 10.30 10*3/uL LAB HEMATOLOGY METHOD 01/06/2025 12:39 AM EST [facility] RBC Count 2.92(L) 4.60 - 6.10 10*6/uL LAB HEMATOLOGY METHOD 01/06/2025 12:39 AM EST [facility] HGB 8.7(L) 13.7 - 17.5 g/dL LAB HEMATOLOGY METHOD 01/06/2025 12:39 AM EST [facility] HCT 25.7(L) 40.0 - 51.0 % LAB HEMATOLOGY METHOD 01/06/2025 12:39 AM EST [facility] Platelet Count 48(L) 155 - 369 10*3/uL LAB HEMATOLOGY METHOD 01/06/2025 12:39 AM EST [facility] MCV 88 79 - 98 fL LAB HEMATOLOGY METHOD 01/06/2025 12:39 AM EST [facility] MCH 29.8 26.0 - 32.0 pg LAB HEMATOLOGY METHOD 01/06/2025 12:39 AM EST [facility] MCHC 33.9 30.7 - 35.5 g/dL LAB HEMATOLOGY METHOD 01/06/2025 12:39 AM EST [facility] RDW 19.7(H) 11.5 - 14.5 % LAB HEMATOLOGY METHOD 01/06/2025 12:39 AM EST [facility] MPV 10.2 8.8 - 12.5 fL LAB HEMATOLOGY METHOD 01/06/2025 12:39 AM EST [facility] nRBC 0.0 <=0.0 per 100 WBCs LAB HEMATOLOGY METHOD 01/06/2025 12:39 AM EST [facility] Blood Venous blood specimen / Unknown Venipuncture / Unknown 01/06/2025 12:15 AM EST 01/06/2025 12:27 AM EST Satnam Beckford MD LAB BLOOD ORDERABLES Final Result Performing Organization Address City/[facility] [address]/ZIP Co de Phone Number [facility] [address] [place] [address] * (ABNORMAL) Prothrombin Time/INR (01/05/2025 8:05 PM EST) Prothrombin Time 18.1(H) 12.0 - 14.3 sec LAB COAGULATION METHOD 01/05/2025 8:55 PM EST [facility] INR 1.5(H) 0.9 - 1.1 LAB COAGULATION METHOD 01/05/2025 8:55 PM EST [facility] Blood Venous blood specimen / Unknown Venipuncture / Unknown 01/05/2025 8:05 PM EST 01/05/2025 8:32 PM EST Narrative [facility] - 01/05/2025 8:55 PM EST OPTIMAL INR RANGES FOR PATIENT ON ORAL ANTICOAGULANT THERAPY Prevention of venous thromboembolism INR 2.0 to 3.0 In patients with heart disease: Atrial fibrillation INR 2.0 to 3.0 Valvular heart disease INR 2.0 to 3.0 Tissue heart valves INR 2.0 to 3.0 Mechanical prosthetic valves INR 2.5 to 3.5 Prevention of recurrent GA INR 2.5 to 3.5 Satnam Beckford MD LAB BLOOD ORDERABLES Final Result Performing Organization Address City/[facility] [address]/ZIP Co de Phone Number [facility] [address] [place] [address] * (ABNORMAL) CBC W/O Differential (01/05/2025 8:05 PM EST) WBC Count 7.09 3.70 - 10.30 10*3/uL LAB HEMATOLOGY METHOD 01/05/2025 8:39 PM EST [facility] RBC Count 2.99(L) 4.60 - 6.10 10*6/uL LAB HEMATOLOGY METHOD 01/05/2025 8:39 PM EST [facility] HGB 8.9(L) 13.7 - 17.5 g/dL LAB HEMATOLOGY METHOD 01/05/2025 8:39 PM EST [facility] HCT 26.0(L) 40.0 - 51.0 % LAB HEMATOLOGY METHOD 01/05/2025 8:39 PM EST [facility] Platelet Count 49(L) 155 - 369 10*3/uL LAB HEMATOLOGY METHOD 01/05/2025 8:39 PM EST [facility] MCV 87 79 - 98 fL LAB HEMATOLOGY METHOD 01/05/2025 8:39 PM EST [facility] MCH 29.8 26.0 - 32.0 pg LAB HEMATOLOGY METHOD 01/05/2025 8:39 PM EST [facility] MCHC 34.2 30.7 - 35.5 g/dL LAB HEMATOLOGY METHOD 01/05/2025 8:39 PM EST [facility] RDW 19.9(H) 11.5 - 14.5 % LAB HEMATOLOGY METHOD 01/05/2025 8:39 PM EST [facility] MPV 10.2 8.8 - 12.5 fL LAB HEMATOLOGY METHOD 01/05/2025 8:39 PM EST [facility] nRBC 0.0 <=0.0 per 100 WBCs LAB HEMATOLOGY METHOD 01/05/2025 8:39 PM EST [facility] Blood Venous blood specimen / Unknown Venipuncture / Unknown 01/05/2025 8:05 PM EST 01/05/2025 8:32 PM EST us Satnam Beckford MD LAB BLOOD ORDERABLES Final Result [facility] [address] [place] [address] * (ABNORMAL) POCT glucose meter (01/05/2025 6:31 PM EST) POCT Glucose 125(H) 74 - 99 mg/dL 01/05/2025 6:33 PM EST [facility] Comment:Accuracy of [...] Comment 01/05/2025 6:33 PM EST [facility] Office Sweeper ID Leo Aguiar 6:33 PM EST [facility] Device ID [id number] 01/05/2025 6:33 PM EST [facility] Specimen Type POC Capillary 01/05/2025 6:33 PM EST [facility] Blood Capillary blood specimen / Unknown 01/05/2025 6:31 PM EST 01/05/2025 6:33 PM EST us Maciel Olson MD LAB POINT OF CARE TE ST DOCKED DEVICE UNSOLICITED RESULTS Final Result Performing Organization Address City/State/[facility] Co de Phone Number [facility] [address] [place] [address] * (ABNORMAL) POCT glucose meter (01/05/2025 3:51 PM EST) [facility] POCT Glucose 109(H) 74 - 99 [...] for testing. Comment 01/05/2025 3:53 PM EST [facility] Office Sweeper ID Leo Aguiar 3:53 PM EST [facility] Device ID [id number] 01/05/2025 3:53 PM EST [facility] Specimen Type POC Arterial 01/05/2025 3:53 PM EST [facility] Blood Arterial blood specimen / Unknown 01/05/2025 3:51 PM EST 01/05/2025 3:53 PM EST us Maciel Olson MD LAB POINT OF CARE TE ST DOCKED DEVICE UNSOLICITED RESULTS Final Result Performing Organization Address City/[facility] [address]/ZIP Co de Phone Number [facility] [address] [place] [address] * (ABNORMAL) Phosphorus, Plasma (01/05/2025 3:49 PM EST) Phosphorus, Plasma 6.1(H) 2.5 - 4.5 mg/dL 01/05/2025 4:39 PM EST [facility] Blood Arterial blood specimen / Unknown Arterial Puncture / Unknown 01/05/2025 3:49 PM EST 01/05/2025 4:07 PM EST us Maciel Olson MD LAB BLOOD ORDERABLES Final Resul t Performing Organization Address City/[facility] [address]/ZIP Co de Phone Number [facility] [address] [place] [address] * (ABNORMAL) Magnesium, Plasma (01/05/2025 3:49 PM EST) Magnesium, Plasma 2.6(H) 1.9 - 2.4 mg/dL 01/05/2025 4:39 PM EST [facility] Blood Arterial blood specimen / Unknown Arterial Puncture / Unknown 01/05/2025 3:49 PM EST 01/05/2025 4:07 PM EST us Maciel Olson MD LAB BLOOD ORDERABLES Final Resul t Performing Organization Address City/[facility] [address]/ZIP Co de Phone Number [facility] [address] [place] [address] * (ABNORMAL) Comprehensive metabolic panel (01/05/2025 3:49 PM EST) Glucose, Plasma 99 74 - 99 mg/dL 01/05/2025 4:39 PM EST [facility] BUN, Plasma 56(H) 7 - 21 mg/dL 01/05/2025 4:39 PM EST [facility] Creatinine, Plasma 2.05(H) 0.70 - 1.20 mg/dL 01/05/2025 4:39 PM EST [facility] BUN/Creatinine Ratio 27 01/05/2025 4:39 PM EST [facility] Sodium, Plasma 134(L) 136 - 145 mmol/L 01/05/2025 4:39 PM [facility] Potassium, Plasma 4.7 3.6 - 4.9 mmol/L 01/05/2025 4:39 PM [facility] Chloride, Plasma 105 97 - 107 mmol/L 01/05/2025 4:39 PM [facility] CO2, Plasma 16(L) 22 - 29 mmol/L 01/05/2025 4:39 PM [facility] Anion Gap 13 6 - 16 mmol/L 01/05/2025 4:39 PM [facility] Total Calcium, Plasma 8.7(L) 8.9 - 10.2 mg/dL 01/05/2025 4:39 PM [facility] Total Protein 5.3(L) 6.3 - 7.9 g/dL 01/05/2025 4:39 PM [facility] Albumin, Plasma 3.5 3.5 - 5.2 g/dL 01/05/2025 4:39 PM [facility] AST, Plasma 90(H) 10 - 50 U/L 01/05/2025 4:39 PM [facility] ALT, Plasma 127(H) 10 - 50 U/L 01/05/2025 4:39 PM [facility] Alkaline Phosphatase, Plasma 61 40 - 115 U/L 01/05/2025 4:39 PM [facility] Total Bilirubin, Plasma 4.8(H) 0.2 - 1.1 mg/dL 01/05/2025 4:39 PM [facility] eGFRcr 40.0 mL/min/1.7 3m*2 01/05/2025 4:39 PM [facility] Comment:Reported eGFRcr in m L/min/1.73m2 is based the CKD-EPI 2020 equation that does not use a race coefficient. Blood Arterial blood specimen / Unknown Arterial Puncture / Unknown 01/05/2025 3:49 PM EST 01/05/2025 4:07 PM EST us Maciel Olson MD LAB BLOOD ORDERABLES Final Resul t Performing Organization Address City/[facility] [address]/ZIP Co de Phone Number [facility] [address] [place] [address] * (ABNORMAL) Prothrombin Time/INR (01/05/2025 3:49 PM EST) Prothrombin Time 18.8(H) 12.0 - 14.3 sec LAB COAGULATION METHOD 01/05/2025 4:36 PM EST [facility] INR 1.5(H) 0.9 - 1.1 LAB COAGULATION METHOD 01/05/2025 4:36 PM EST [facility] Blood Arterial blood specimen / Unknown Arterial Puncture / Unknown 01/05/2025 3:49 PM EST 01/05/2025 4:07 PM EST Narrative [facility] - 01/05/2025 4:36 PM EST OPTIMAL INR RANGES FOR PATIENT ON ORAL ANTICOAGULANT THERAPY Prevention of venous thromboembolism INR 2.0 to 3.0 In patients with heart disease: Atrial fibrillation INR 2.0 to 3.0 Valvular heart disease INR 2.0 to 3.0 Tissue heart valves INR 2.0 to 3.0 Mechanical prosthetic valves INR 2.5 to 3.5 Prevention of recurrent GA INR 2.5 to 3.5 Satnam Beckford MD LAB BLOOD ORDERABLES Final Result Performing Organization Address [facility] [address]/[facility] Co de Phone Number [facility] [address] [place] [address] * (ABNORMAL) CBC W/O Differential (01/05/2025 3:49 PM EST) WBC Count 7.36 3.70 - 10.30 10*3/uL LAB HEMATOLOGY METHOD 01/05/2025 4:39 PM EST [facility] RBC Count 2.86(L) 4.60 - 6.10 10*6/uL LAB HEMATOLOGY METHOD 01/05/2025 4:39 PM EST [facility] HGB 8.7(L) 13.7 - 17.5 g/dL LAB HEMATOLOGY METHOD 01/05/2025 4:39 PM EST [facility] HCT 25.3(L) 40.0 - 51.0 % LAB HEMATOLOGY METHOD 01/05/2025 4:39 PM EST [facility] Platelet Count 42(L) 155 - 369 10*3/uL LAB HEMATOLOGY METHOD 01/05/2025 4:39 PM EST [facility] MCV 89 79 - 98 fL LAB HEMATOLOGY METHOD 01/05/2025 4:39 PM EST [facility] MCH 30.4 26.0 - 32.0 pg LAB HEMATOLOGY METHOD 01/05/2025 4:39 PM EST [facility] MCHC 34.4 30.7 - 35.5 g/dL LAB HEMATOLOGY METHOD 01/05/2025 4:39 PM EST [facility] RDW 19.8(H) 11.5 - 14.5 % LAB HEMATOLOGY METHOD 01/05/2025 4:39 PM EST [facility] MPV 10.4 8.8 - 12.5 fL LAB HEMATOLOGY METHOD 01/05/2025 4:39 PM EST [facility] nRBC 0.0 <=0.0 per 100 WBCs LAB HEMATOLOGY METHOD 01/05/2025 4:39 PM EST [facility] Blood Arterial blood specimen / Unknown Arterial Puncture / Unknown 01/05/2025 3:49 PM EST 01/05/2025 4:22 PM EST us Satnam Beckford MD LAB BLOOD ORDERABLES Final Result [facility] [address] [place] [address] * XR Abdomen 1 View (01/05/2025 12:41 [...] for testing. Comment 01/05/2025 12:04 PM EST [facility] Office Sweeper ID Leo Aguiar 12:04 PM EST [facility] Device ID [id number] 01/05/2025 12:04 PM EST [facility] Specimen Type POC Venous 01/05/2025 12:04 PM EST [employer] [facility] Blood Venous blood specimen / Unknown 01/05/2025 12:03 PM EST 01/05/2025 12:04 PM EST us Maciel Olson MD LAB POINT OF CARE TE ST DOCKED DEVICE UNSOLICITED RESULTS Final Result Performing Organization Address [facility] [address]/[facility] Co de Phone Number [facility] [address] [place] [address] * (ABNORMAL) Prothrombin Time/INR (01/05/2025 12:00 PM EST) Prothrombin Time 18.9(H) 12.0 - 14.3 sec LAB COAGULATION METHOD 01/05/2025 12:34 PM EST [facility] INR 1.5(H) 0.9 - 1.1 LAB COAGULATION METHOD 01/05/2025 12:34 PM EST [facility] Blood Arterial blood specimen / Unknown Arterial Puncture / Unknown 01/05/2025 12:00 PM EST 01/05/2025 12:11 PM EST Narrative [facility] - 01/05/2025 12:34 PM EST OPTIMAL INR RANGES FOR PATIENT ON ORAL ANTICOAGULANT THERAPY Prevention of venous thromboembolism INR 2.0 to 3.0 In patients with heart disease: Atrial fibrillation INR 2.0 to 3.0 Valvular heart disease INR 2.0 to 3.0 Tissue heart valves INR 2.0 to 3.0 Mechanical prosthetic valves INR 2.5 to 3.5 Prevention of recurrent GA INR 2.5 to 3.5 us Satnam Beckford MD LAB BLOOD ORDERABLES Final Result [facility] [address] [place] [address] * (ABNORMAL) CBC W/O Differential (01/05/2025 12:00 PM EST) WBC Count 8.36 3.70 - 10.30 10*3/uL LAB HEMATOLOGY METHOD 01/05/2025 12:26 PM EST [facility] RBC Count 2.90(L) 4.60 - 6.10 10*6/uL LAB HEMATOLOGY METHOD 01/05/2025 12:26 PM EST [facility] HGB 8.9(L) 13.7 - 17.5 g/dL LAB HEMATOLOGY METHOD 01/05/2025 12:26 PM EST [facility] HCT 25.9(L) 40.0 - 51.0 % LAB HEMATOLOGY METHOD 01/05/2025 12:26 PM EST [facility] Platelet Count 44(L) 155 - 369 10*3/uL LAB HEMATOLOGY METHOD 01/05/2025 12:26 PM EST [facility] MCV 89 79 - 98 fL LAB HEMATOLOGY METHOD 01/05/2025 12:26 PM EST [facility] MCH 30.7 26.0 - 32.0 pg LAB HEMATOLOGY METHOD 01/05/2025 12:26 PM EST [facility] MCHC 34.4 30.7 - 35.5 g/dL LAB HEMATOLOGY METHOD 01/05/2025 12:26 PM EST [facility] RDW 19.7(H) 11.5 - 14.5 % LAB HEMATOLOGY METHOD 01/05/2025 12:26 PM EST [facility] MPV 10.1 8.8 - 12.5 fL LAB HEMATOLOGY METHOD 01/05/2025 12:26 PM EST [facility] nRBC 0.0 <=0.0 per 100 WBCs LAB HEMATOLOGY METHOD 01/05/2025 12:26 PM EST [facility] Blood Arterial blood specimen / Unknown Arterial Puncture / Unknown 01/05/2025 12:00 PM EST 01/05/2025 12:19 PM EST Satnam Beckford MD LAB BLOOD ORDERABLES Final Result Performing Organization Address City/State/[facility] Co de Phone Number [facility] [address] [place] [address] * [place] [facility], E/M 30-74 MINUTES (01/05/2025 11:03 [...] review of radiographic studies us Camilla Soto SHIFTMAN, DNP IN CLINIC/BEDSIDE ORDERAB LES Final Result * (ABNORMAL) Comprehensive metabolic panel (01/05/2025 8:39 AM EST) Glucose, Plasma 103(H) 74 - 99 mg/dL 01/05/2025 9:14 AM EST [facility] BUN, Plasma 49(H) 7 - 21 mg/dL 01/05/2025 9:14 AM EST [facility] Creatinine, Plasma 1.90(H) 0.70 - 1.20 mg/dL 01/05/2025 9:14 AM EST [facility] BUN/Creatinine Ratio 26 01/05/2025 9:14 AM [facility] Sodium, Plasma 136 136 - 145 mmol/L 01/05/2025 9:14 AM [facility] Potassium, Plasma 4.7 3.6 - 4.9 mmol/L 01/05/2025 9:14 AM EST [facility] Chloride, Plasma 106 97 - 107 mmol/L 01/05/2025 9:14 AM EST [facility] CO2, Plasma 16(L) 22 - 29 mmol/L 01/05/2025 9:14 AM [facility] Anion Gap 14 6 - 16 mmol/L 01/05/2025 9:14 AM [facility] Total Calcium, Plasma 8.8(L) 8.9 - 10.2 mg/dL 01/05/2025 9:14 AM EST [facility] Total Protein 5.5(L) 6.3 - 7.9 g/dL 01/05/2025 9:14 AM [facility] Albumin, Plasma 3.7 3.5 - 5.2 g/dL 01/05/2025 9:14 AM [facility] AST, Plasma 110(H) 10 - 50 U/L 01/05/2025 9:14 AM EST [facility] ALT, Plasma 138(H) 10 - 50 U/L 01/05/2025 9:14 AM EST [facility] Alkaline Phosphatase, Plasma 61 40 - 115 U/L 01/05/2025 9:14 AM EST [facility] Total Bilirubin, Plasma 5.4(H) 0.2 - 1.1 mg/dL 01/05/2025 9:14 AM EST [facility] eGFRcr 43.8 mL/min/1.7 3m*2 01/05/2025 9:14 AM EST [facility] Comment:Reported eGFRcr in m L/min/1.73m2 is based the CKD-EPI 2020 equation that does not use a race coefficient. Blood Arterial blood specimen / Unknown Arterial Puncture / Unknown 01/05/2025 8:39 AM EST 01/05/2025 8:46 AM EST Satnam Beckford MD LAB BLOOD ORDERABLES Final Result [facility] [address] [place] [address] * (ABNORMAL) Magnesium, Plasma (01/05/2025 8:39 AM EST) Magnesium, Plasma 2.6(H) 1.9 - 2.4 mg/dL 01/05/2025 9:14 AM EST [facility] Blood Arterial blood specimen / Unknown Arterial Puncture / Unknown 01/05/2025 8:39 AM EST 01/05/2025 8:46 AM EST Satnam Beckford MD LAB BLOOD ORDERABLES Final Result [facility] [address] [place] [address] * (ABNORMAL) Phosphorus, Plasma (01/05/2025 8:39 AM EST) Phosphorus, Plasma 6.0(H) 2.5 - 4.5 mg/dL 01/05/2025 9:14 AM EST [facility] Blood Arterial blood specimen / Unknown Arterial Puncture / Unknown 01/05/2025 8:39 AM EST 01/05/2025 8:46 AM EST Satnam Beckford MD LAB BLOOD ORDERABLES Final Result Performing Organization Address [facility] [address]/[facility] Co de Phone Number [facility] [address] [place] [address] * (ABNORMAL) Prothrombin Time/INR (01/05/2025 8:39 AM EST) Prothrombin Time 18.6(H) 12.0 - 14.3 sec LAB COAGULATION METHOD 01/05/2025 9:32 AM EST [facility] INR 1.5(H) 0.9 - 1.1 LAB COAGULATION METHOD 01/05/2025 9:32 AM EST [facility] Blood Arterial blood specimen / Unknown Arterial Puncture / Unknown 01/05/2025 8:39 AM EST 01/05/2025 8:46 AM EST Narrative [facility] - 01/05/2025 9:32 AM EST OPTIMAL INR RANGES FOR PATIENT ON ORAL ANTICOAGULANT THERAPY Prevention of venous thromboembolism INR 2.0 to 3.0 In patients with heart disease: Atrial fibrillation INR 2.0 to 3.0 Valvular heart disease INR 2.0 to 3.0 Tissue heart valves INR 2.0 to 3.0 Mechanical prosthetic valves INR 2.5 to 3.5 Prevention of recurrent GA INR 2.5 to 3.5 Satnam Beckford MD LAB BLOOD ORDERABLES Final Result Performing Organization Address City/[facility] [address]/ZIP Co de Phone Number [facility] [address] [place] [address] * (ABNORMAL) CBC W/O Differential (01/05/2025 8:39 AM EST) WBC Count 8.94 3.70 - 10.30 10*3/uL LAB HEMATOLOGY METHOD 01/05/2025 8:54 AM EST [facility] RBC Count 2.92(L) 4.60 - 6.10 10*6/uL LAB HEMATOLOGY METHOD 01/05/2025 8:54 AM EST [facility] HGB 8.8(L) 13.7 - 17.5 g/dL LAB HEMATOLOGY METHOD 01/05/2025 8:54 AM EST [facility] HCT 25.5(L) 40.0 - 51.0 % LAB HEMATOLOGY METHOD 01/05/2025 8:54 AM EST [facility] Platelet Count 48(L) 155 - 369 10*3/uL LAB HEMATOLOGY METHOD 01/05/2025 8:54 AM EST [facility] MCV 87 79 - 98 fL LAB HEMATOLOGY METHOD 01/05/2025 8:54 AM EST [facility] MCH 30.1 26.0 - 32.0 pg LAB HEMATOLOGY METHOD 01/05/2025 8:54 AM EST [facility] MCHC 34.5 30.7 - 35.5 g/dL LAB HEMATOLOGY METHOD 01/05/2025 8:54 AM EST [facility] RDW 19.5(H) 11.5 - 14.5 % LAB HEMATOLOGY METHOD 01/05/2025 8:54 AM EST [facility] MPV 10.2 8.8 - 12.5 fL LAB HEMATOLOGY METHOD 01/05/2025 8:54 AM EST [facility] nRBC 0.0 <=0.0 per 100 WBCs LAB HEMATOLOGY METHOD 01/05/2025 8:54 AM EST [facility] Blood Arterial blood specimen / Unknown Arterial Puncture / Unknown 01/05/2025 8:39 AM EST 01/05/2025 8:46 AM EST Satnam Beckford MD LAB BLOOD ORDERABLES Final Result Performing Organization Address City/State/[facility] Co de Phone Number [facility] [address] [place] [address] * (ABNORMAL) POCT glucose meter (01/05/2025 8:38 AM EST) POCT Glucose 107(H) 74 - 99 mg/dL 01/05/2025 8:40 AM EST [facility] Comment:Accuracy of a glucos [...] Comment 01/05/2025 8:40 AM EST [facility] Office Sweeper ID Leo Aguiar 8:40 AM EST [facility] Device ID [id number] 01/05/2025 8:40 AM EST [facility] Specimen Type POC Capillary 01/05/2025 8:40 AM EST [facility] Blood Capillary blood specimen / Unknown 01/05/2025 8:38 AM EST 01/05/2025 8:40 AM EST Maciel Olson MD LAB POINT OF CARE TE ST DOCKED DEVICE UNSOLICITED RESULTS Final Result Performing Organization Address City/State/[facility] de Phone Number [facility] [address] [place] [address] * Transfuse RBC (01/05/2025 5:53 AM EST) Kelvin Zapata APRN BLOOD TRANSFUSION ORDERAB LES Final Result * Transfuse RBC: 1 Units (01/05/2025 5:53 AM EST) Kelvin Zapata APRN BLOOD TRANSFUSION ORDERAB LES Final Result * Tacrolimus (01/05/2025 5:49 AM EST) [facility] Tacrolimus 4.9 4.0 - 17.0 ng/mL 01/05/2025 11:44 AM EST [facility] Comment: Tacrolimus therapeutic range: Initial (<3 mo.) Maintenance Kidney 8-13 ng/mL 4-8 ng/mL Liver 8-13 ng/mL 4-8 ng/mL Heart 8-15 ng/mL 7-13 ng/mL Lung;Heart/Lung 8-17 ng/mL 8-13 ng/mL Blood Arterial blood specimen / Unknown Arterial Puncture / Unknown 01/05/2025 5:49 AM EST 01/05/2025 6:00 AM EST Narrative [facility] - 01/05/2025 11:44 AM EST Test performed by LC-MS/MS at the [facility]. This test was developed and its performance characteristics determined by [facility]. It has not been cleared or approved by the FDA. The laboratory is regulated under CLIA as qualified to perform high-complexity testing. This test is used for clinical purposes. Test performed by LC-MS/MS at the [facility]. This test was developed and its performance characteristics determined by [facility]. It has not been cleared or approved by the FDA. The laboratory is regulated under CLIA as qualified to perform high-complexity testing. This test is used for clinical purposes. Satnam Beckford MD LAB BLOOD ORDERABLES Final Result Performing Organization Address City/[facility] [address]/ZIP Co de Phone Number [facility] [address] [place] [address] * (ABNORMAL) POCT glucose meter (01/05/2025 5:44 AM EST) [facility] POCT Glucose 113(H) 74 - 99 mg/dL 01/05/2025 5:45 AM EST [facility] Comment:Accuracy of a [...] Comment 01/05/2025 5:45 AM EST [facility] Office Sweeper ID Shaka Burciaga 01/05/2025 5:45 AM EST [facility] Device ID [id number] 01/05/2025 5:45 AM EST [facility] Specimen Type POC Arterial 01/05/2025 5:45 AM EST [facility] Blood Arterial blood specimen / Unknown 01/05/2025 5:44 AM EST 01/05/2025 5:45 AM EST Satnam Beckford MD LAB POINT OF CARE T EST DOCKED DEVICE UNSOLICITED RESULTS Final Result Performing Organization Address City/[facility] [address]/ZIP Co de Phone Number [facility] [address] [place] [address] * XR Chest 1 View (01/05/2025 5:22 AM EST) Anatomical Region Laterality Modality Chest Digital Radiogra phy Impressions 01/05/2025 9:32 AM EST Interval removal of the [place]-Héctor catheter. Persistent hypoventilatory changes with slight increase [...] radiograph 01/04/2025. FINDINGS: Interval removal of the [place]-Héctor catheter. Otherwise, stable support hardware. The contours [...] radiograph 01/04/2025. FINDINGS: Interval removal of the [place]-Héctor catheter. Otherwise, stable supporthardware. The contours and cardiac silhouette are stable. Persistent lowlung volumes. Right basal opacities is slightly increased. Decreased leftbasal airspace opacities. Unchanged small left pleural effusion. Nopneumothorax. IMPRESSION: Interval removal of the [place]-Héctor catheter. Persistent hypoventilatory changes with slight increase [...] Units (01/05/2025 4:19 AM EST) Product Code [id number] CH BLOO D BANK Dispense Status Transfused BLOOD BANK Blood Expiration Date [id number] BLOOD BANK Unit Number [id number] B LOOD BANK Product Blood Type 0600 BLOOD BANK Blood Type A- BLOOD BANK Crossmatch Compatible BLOOD BANK Other Kelvin Zapata SHIFTMAN BLOOD BANK PRODUCT ORDERA BLES Final Result BLOOD BANK [address] [place] [address], * (ABNORMAL) Prothrombin Time/INR (01/05/2025 3:54 AM EST) Prothrombin Time 19.4(H) 12.0 - 14.3 sec LAB COAGULATION METHOD 01/05/2025 4:15 AM EST [facility] INR 1.6(H) 0.9 - 1.1 LAB COAGULATION METHOD 01/05/2025 4:15 AM EST [facility] Blood Arterial blood specimen / Unknown Arterial Puncture / Unknown 01/05/2025 3:54 AM EST 01/05/2025 4:02 AM EST Narrative [facility] - 01/05/2025 4:15 AM EST OPTIMAL INR RANGES FOR PATIENT ON ORAL ANTICOAGULANT THERAPY Prevention of venous thromboembolism INR 2.0 to 3.0 In patients with heart disease: Atrial fibrillation INR 2.0 to 3.0 Valvular heart disease INR 2.0 to 3.0 Tissue heart valves INR 2.0 to 3.0 Mechanical prosthetic valves INR 2.5 to 3.5 Prevention of recurrent GA INR 2.5 to 3.5 Satnam Beckford MD LAB BLOOD ORDERABLES Final Result [facility] [address] [place] [address] * (ABNORMAL) CBC W/O Differential (01/05/2025 3:54 AM EST) WBC Count 8.52 3.70 - 10.30 10*3/uL LAB HEMATOLOGY METHOD 01/05/2025 4:15 AM EST [facility] RBC Count 2.59(L) 4.60 - 6.10 10*6/uL LAB HEMATOLOGY METHOD 01/05/2025 4:15 AM EST [facility] HGB 7.8(L) 13.7 - 17.5 g/dL LAB HEMATOLOGY METHOD 01/05/2025 4:15 AM EST [facility] HCT 22.9(L) 40.0 - 51.0 % LAB HEMATOLOGY METHOD 01/05/2025 4:15 AM EST [facility] Platelet Count 48(L) 155 - 369 10*3/uL LAB HEMATOLOGY METHOD 01/05/2025 4:15 AM EST [facility] MCV 88 79 - 98 fL LAB HEMATOLOGY METHOD 01/05/2025 4:15 AM EST [facility] MCH 30.1 26.0 - 32.0 pg LAB HEMATOLOGY METHOD 01/05/2025 4:15 AM EST [facility] MCHC 34.1 30.7 - 35.5 g/dL LAB HEMATOLOGY METHOD 01/05/2025 4:15 AM EST [facility] RDW 19.7(H) 11.5 - 14.5 % LAB HEMATOLOGY METHOD 01/05/2025 4:15 AM EST [facility] MPV 9.9 8.8 - 12.5 fL LAB HEMATOLOGY METHOD 01/05/2025 4:15 AM EST [facility] nRBC 0.0 <=0.0 per 100 WBCs LAB HEMATOLOGY METHOD 01/05/2025 4:15 AM EST [facility] Blood Arterial blood specimen / Unknown Arterial Puncture / Unknown 01/05/2025 3:54 AM EST 01/05/2025 4:02 AM EST us Satnam Beckford MD LAB BLOOD ORDERABLES Final Result [facility] [address] [place] [address] * (ABNORMAL) Comprehensive metabolic panel (01/05/2025 12:06 AM EST) Glucose, Plasma 134(H) 74 - 99 mg/dL 01/05/2025 12:56 AM EST [facility] BUN, Plasma 44(H) 7 - 21 mg/dL 01/05/2025 12:56 AM EST [facility] Creatinine, Plasma 1.84(H) 0.70 - 1.20 mg/dL 01/05/2025 12:56 AM EST [facility] BUN/Creatinine Ratio 01/05/2025 12:56 AM EST [facility] Sodium, Plasma 134(L) 136 - 145 mmol/L 01/05/2025 12:56 AM EST [facility] Potassium, Plasma 4.6 3.6 - 4.9 mmol/L 01/05/2025 12:56 AM EST [facility] Chloride, Plasma 105 97 - 107 mmol/L 01/05/2025 12:56 AM EST [facility] CO2, Plasma 16(L) 22 - 29 mmol/L 01/05/2025 12:56 AM EST [facility] Anion Gap 13 6 - 16 mmol/L 01/05/2025 12:56 AM EST [facility] Total Calcium, Plasma 8.5(L) 8.9 - 10.2 mg/dL 01/05/2025 12:56 AM EST [facility] Total Protein 5.4(L) 6.3 - 7.9 g/dL 01/05/2025 12:56 AM EST [facility] Albumin, Plasma 3.4(L) 3.5 - 5.2 g/dL 01/05/2025 12:56 AM EST [facility] AST, Plasma 150(H) 10 - 50 U/L 01/05/2025 12:56 AM EST [facility] ALT, Plasma 161(H) 10 - 50 U/L 01/05/2025 12:56 AM EST [facility] Alkaline Phosphatase, Plasma 68 40 - 115 U/L 01/05/2025 12:56 AM EST [facility] Total Bilirubin, Plasma 5.2(H) 0.2 - 1.1 mg/dL 01/05/2025 12:56 AM EST [facility] eGFRcr 45.5 mL/min/1.7 3m*2 01/05/2025 12:56 AM EST [facility] Comment:Reported eGFRcr in m L/min/1.73m2 is based the CKD-EPI 2020 equation that does not use a race coefficient. Blood Arterial blood specimen / Unknown Arterial Puncture / Unknown 01/05/2025 12:06 AM EST 01/05/2025 12:26 AM EST Satnam Beckford MD LAB BLOOD ORDERABLES Final Result [facility] [address] [place] [address] * Magnesium, Plasma (01/05/2025 12:06 AM EST) Magnesium, Plasma 2.4 1.9 - 2.4 mg/dL 01/05/2025 12:56 AM EST [facility] Blood Arterial blood specimen / Unknown Arterial Puncture / Unknown 01/05/2025 12:06 AM EST 01/05/2025 12:26 AM EST Satnam Beckford MD LAB BLOOD ORDERABLES Final Result Performing Organization Address City/[facility] [address]/ZIP Co de Phone Number [facility] [address] [place] [address] * (ABNORMAL) Phosphorus, Plasma (01/05/2025 12:06 AM EST) Phosphorus, Plasma 6.1(H) 2.5 - 4.5 mg/dL 01/05/2025 12:56 AM EST [facility] Blood Arterial blood specimen / Unknown Arterial Puncture / Unknown 01/05/2025 12:06 AM EST 01/05/2025 12:26 AM EST Satnam Beckford MD LAB BLOOD ORDERABLES Final Result Performing Organization Address City/[facility] [address]/ZIP Co de Phone Number [facility] [address] [place] [id number] * (ABNORMAL) Prothrombin Time/INR (01/05/2025 12:06 AM EST) Prothrombin Time 19.2(H) 12.0 - 14.3 sec LAB COAGULATION METHOD 01/05/2025 12:44 AM EST [facility] INR 1.6(H) 0.9 - 1.1 LAB COAGULATION METHOD 01/05/2025 12:44 AM EST [facility] Blood Arterial blood specimen / Unknown Arterial Puncture / Unknown 01/05/2025 12:06 AM EST 01/05/2025 12:26 AM EST [facility] - 01/05/2025 12:44 AM EST OPTIMAL INR RANGES FOR PATIENT ON ORAL ANTICOAGULANT THERAPY Prevention of venous thromboembolism INR 2.0 to 3.0 In patients with heart disease: Atrial fibrillation INR 2.0 to 3.0 Valvular heart disease INR 2.0 to 3.0 Tissue heart valves INR 2.0 to 3.0 Mechanical prosthetic valves INR 2.5 to 3.5 Prevention of recurrent GA INR 2.5 to 3.5 us Satnam Beckford MD LAB BLOOD ORDERABLES Final Result [facility] [address] [place] [address] * (ABNORMAL) CBC W/O Differential (01/05/2025 12:06 AM EST) WBC Count 10.02 3.70 - 10.30 10*3/uL LAB HEMATOLOGY METHOD 01/05/2025 12:37 AM EST [facility] RBC Count 2.70(L) 4.60 - 6.10 10*6/uL LAB HEMATOLOGY METHOD 01/05/2025 12:37 AM EST [facility] HGB 8.2(L) 13.7 - 17.5 g/dL LAB HEMATOLOGY METHOD 01/05/2025 12:37 AM EST [facility] HCT 23.8(L) 40.0 - 51.0 % LAB HEMATOLOGY METHOD 01/05/2025 12:37 AM EST [facility] Platelet Count 56(L) 155 - 369 10*3/uL LAB HEMATOLOGY METHOD 01/05/2025 12:37 AM EST [facility] MCV 88 79 - 98 fL LAB HEMATOLOGY METHOD 01/05/2025 12:37 AM EST [facility] MCH 30.4 26.0 - 32.0 pg LAB HEMATOLOGY METHOD 01/05/2025 12:37 AM EST [facility] MCHC 34.5 30.7 - 35.5 g/dL LAB HEMATOLOGY METHOD 01/05/2025 12:37 AM EST [facility] RDW 19.9(H) 11.5 - 14.5 % LAB HEMATOLOGY METHOD 01/05/2025 12:37 AM EST [facility] MPV 10.4 8.8 - 12.5 fL LAB HEMATOLOGY METHOD 01/05/2025 12:37 AM EST [facility] nRBC 0.0 <=0.0 per 100 WBCs LAB HEMATOLOGY METHOD 01/05/2025 12:37 AM EST [facility] Blood Arterial blood specimen / Unknown Arterial Puncture / Unknown 01/05/2025 12:06 AM EST 01/05/2025 12:29 AM EST Satnam Beckford MD LAB BLOOD ORDERABLES Final Result Performing Organization Address City/State/[facility] Co de Phone Number [facility] [address] [place] [address] * Transfuse RBC (01/04/2025 9:31 PM EST) Kelvin Zapata APRN BLOOD TRANSFUSION ORDERAB LES Final Result * Transfuse RBC: 1 Units (01/04/2025 9:31 PM EST) Kelvin Zapata APRN BLOOD TRANSFUSION ORDERAB LES Final Result * Prepare Leukocyte Reduced RBC: 1 Units (01/04/2025 8:13 PM EST) [facility] Signature Product Code [id number] CH BLOO D BANK Dispense Status Transfused BLOOD BANK Blood Expiration Date [id number] BLOOD BANK Unit Number [id number] CH B LOOD BANK Product Blood Type 0600 BLOOD BANK Blood Type A- CH BLOOD BANK Crossmatch Compatible BLOOD BANK Other Kelvin Zapata APRN BLOOD BANK PRODUCT ORDERA BLES Final Result Performing Organization Address [facility] [address]/ZIP Co de Phone Number BLOOD BANK [address] * (ABNORMAL) Prothrombin Time/INR (01/04/2025 7:49 PM EST) Prothrombin Time 20.3(H) 12.0 - 14.3 sec LAB COAGULATION METHOD 01/04/2025 8:10 PM EST [facility] INR 1.7(H) 0.9 - 1.1 LAB COAGULATION METHOD 01/04/2025 8:10 PM EST [facility] Blood Arterial blood specimen / Unknown Arterial Puncture / Unknown 01/04/2025 7:49 PM EST 01/04/2025 7:55 PM EST Narrative [facility] - 01/04/2025 8:10 PM EST OPTIMAL INR RANGES FOR PATIENT ON ORAL ANTICOAGULANT THERAPY Prevention of venous thromboembolism INR 2.0 to 3.0 In patients with heart disease: Atrial fibrillation INR 2.0 to 3.0 Valvular heart disease INR 2.0 to 3.0 Tissue heart valves INR 2.0 to 3.0 Mechanical prosthetic valves INR 2.5 to 3.5 Prevention of recurrent GA INR 2.5 to 3.5 Satnam Beckford MD LAB BLOOD ORDERABLES Final Result [facility] [address] [place] [address] * (ABNORMAL) CBC W/O Differential (01/04/2025 7:49 PM EST) WBC Count 9.63 3.70 - 10.30 10*3/uL LAB HEMATOLOGY METHOD 01/04/2025 8:02 PM EST [facility] RBC Count 2.51(L) 4.60 - 6.10 10*6/uL LAB HEMATOLOGY METHOD 01/04/2025 8:02 PM EST [facility] HGB 7.6(L) 13.7 - 17.5 g/dL LAB HEMATOLOGY METHOD 01/04/2025 8:02 PM EST [facility] HCT 22.2(L) 40.0 - 51.0 % LAB HEMATOLOGY METHOD 01/04/2025 8:02 PM EST [facility] Platelet Count 52(L) 155 - 369 10*3/uL LAB HEMATOLOGY METHOD 01/04/2025 8:02 PM EST [facility] MCV 88 79 - 98 fL LAB HEMATOLOGY METHOD 01/04/2025 8:02 PM EST [facility] MCH 30.3 26.0 - 32.0 pg LAB HEMATOLOGY METHOD 01/04/2025 8:02 PM EST [facility] MCHC 34.2 30.7 - 35.5 g/dL LAB HEMATOLOGY METHOD 01/04/2025 8:02 PM EST [facility] RDW 20.0(H) 11.5 - 14.5 % LAB HEMATOLOGY METHOD 01/04/2025 8:02 PM EST [facility] MPV 9.7 8.8 - 12.5 fL LAB HEMATOLOGY METHOD 01/04/2025 8:02 PM EST [facility] nRBC 0.0 <=0.0 per 100 WBCs LAB HEMATOLOGY METHOD 01/04/2025 8:02 PM EST [facility] Blood Arterial blood specimen / Unknown Arterial Puncture / Unknown 01/04/2025 7:49 PM EST 01/04/2025 7:55 PM EST us Satnam Beckford MD LAB BLOOD ORDERABLES Final Result [facility] [address] [place] [address] * (ABNORMAL) Tacrolimus (01/04/2025 5:26 PM EST) Tacrolimus <2.0(L) 4.0 - 17.0 ng/mL 01/05/2025 7:52 AM EST [facility] Comment: Tacrolimus therapeutic range: Initial (<3 mo.) Maintenance Kidney 8-13 ng/mL 4-8 ng/mL Liver 8-13 ng/mL 4-8 ng/mL Heart 8-15 ng/mL 7-13 ng/mL Lung;Heart/Lung 8-17 ng/mL 8-13 ng/mL Blood Arterial blood specimen / Unknown Arterial Line / Unknown 01/04/2025 5:26 PM EST 01/04/2025 5:36 PM EST Narrative [facility] - 01/05/2025 7:52 AM EST Test performed by LC-MS/MS at the [facility]. This test was developed and its performance characteristics determined by [facility]. It has not been cleared or approved by the FDA. The laboratory is regulated under CLIA as qualified to perform high-complexity testing. This test is used for clinical purposes. Test performed by LC-MS/MS at the [facility]. This test was developed and its performance characteristics determined by [facility]. It has not been cleared or approved by the FDA. The laboratory is regulated under CLIA as qualified to perform high-complexity testing. This test is used for clinical purposes. Satnam Beckford MD LAB BLOOD ORDERABLES Final Result [facility] [address] [place] [address] * (ABNORMAL) POCT glucose meter (01/04/2025 5:24 PM EST) POCT Glucose 128(H) 74 - 99 mg/dL 01/04/2025 5:26 PM EST [employer] [facility] Comment:Accuracy of a glucos e result [...] for testing. Comment 01/04/2025 5:26 PM EST [facility] Office Sweeper ID Tila Vazquez 5:26 PM EST [facility] Device ID [id number] 01/04/2025 5:26 PM EST [employer] [facility] Specimen Type POC Capillary 01/04/2025 5:26 PM EST [employer] [facility] Blood Capillary blood specimen / Unknown 01/04/2025 5:24 PM EST 01/04/2025 5:26 PM EST Satnam Beckford MD LAB POINT OF CARE T EST DOCKED DEVICE UNSOLICITED RESULTS Final Result [facility] [address] [place] [address] * (ABNORMAL) Comprehensive metabolic panel (01/04/2025 3:01 PM EST) Glucose, Plasma 126(H) 74 - 99 mg/dL 01/04/2025 3:38 PM EST [facility] BUN, Plasma 36(H) 7 - 21 mg/dL 01/04/2025 3:38 PM EST [facility] Creatinine, Plasma 1.73(H) 0.70 - 1.20 mg/dL 01/04/2025 3:38 PM EST [facility] BUN/Creatinine Ratio 21 01/04/2025 3:38 PM EST [facility] Sodium, Plasma 138 136 - 145 mmol/L 01/04/2025 3:38 PM EST [facility] Potassium, Plasma 4.6 3.6 - 4.9 mmol/L 01/04/2025 3:38 PM EST [facility] Chloride, Plasma 107 97 - 107 mmol/L 01/04/2025 3:38 PM EST [facility] CO2, Plasma 16(L) 22 - 29 mmol/L 01/04/2025 3:38 PM EST [facility] Anion Gap 15 6 - 16 mmol/L 01/04/2025 3:38 PM EST [facility] Total Calcium, Plasma 8.5(L) 8.9 - 10.2 mg/dL 01/04/2025 3:38 PM EST [facility] Total Protein 5.3(L) 6.3 - 7.9 g/dL 01/04/2025 3:38 PM EST [facility] Albumin, Plasma 3.3(L) 3.5 - 5.2 g/dL 01/04/2025 3:38 PM EST [facility] AST, Plasma 210(H) 10 - 50 U/L 01/04/2025 3:38 PM EST [facility] ALT, Plasma 178(H) 10 - 50 U/L 01/04/2025 3:38 PM EST [facility] Alkaline Phosphatase, Plasma 69 40 - 115 U/L 01/04/2025 3:38 PM EST [facility] Total Bilirubin, Plasma 5.4(H) 0.2 - 1.1 mg/dL 01/04/2025 3:38 PM EST [facility] eGFRcr 49.0 mL/min/1.7 3m*2 01/04/2025 3:38 PM EST [facility] Comment:Reported eGFRcr in m L/min/1.73m2 is based the CKD-EPI 2020 equation that does not use a race coefficient. Blood Venous blood specimen / Unknown Venipuncture / Unknown 01/04/2025 3:01 PM EST 01/04/2025 3:10 PM EST Result [facility] Satnam Beckford MD LAB BLOOD ORDERABLES Final Result Performing Organization Address City/[facility] [address]/ZIP Co de Phone Number [facility] [address] [place] [address] * Magnesium, Plasma (01/04/2025 3:01 PM EST) Magnesium, Plasma 2.4 1.9 - 2.4 mg/dL 01/04/2025 3:38 PM EST [facility] Blood Venous blood specimen / Unknown Venipuncture / Unknown 01/04/2025 3:01 PM EST 01/04/2025 3:10 PM EST Result [facility] [place] Satnam Beckford MD LAB BLOOD ORDERABLES Final Result [facility] [address] [place] [address] * (ABNORMAL) Phosphorus, Plasma (01/04/2025 3:01 PM EST) Phosphorus, Plasma 6.4(H) 2.5 - 4.5 mg/dL 01/04/2025 3:38 PM EST [facility] Blood Venous blood specimen / Unknown Venipuncture / Unknown 01/04/2025 3:01 PM EST 01/04/2025 3:10 PM EST Satnam Beckford MD LAB BLOOD ORDERABLES Final Result [facility] [address] [place] [address] * (ABNORMAL) Prothrombin Time/INR (01/04/2025 3:01 PM EST) Prothrombin Time 20.2(H) 12.0 - 14.3 sec LAB COAGULATION METHOD 01/04/2025 3:38 PM EST [facility] INR 1.7(H) 0.9 - 1.1 LAB COAGULATION METHOD 01/04/2025 3:38 PM EST [facility] Blood Venous blood specimen / Unknown Venipuncture / Unknown 01/04/2025 3:01 PM EST 01/04/2025 3:10 PM EST Narrative [facility] - 01/04/2025 3:38 PM EST OPTIMAL INR RANGES FOR PATIENT ON ORAL ANTICOAGULANT THERAPY Prevention of venous thromboembolism INR 2.0 to 3.0 In patients with heart disease: Atrial fibrillation INR 2.0 to 3.0 Valvular heart disease INR 2.0 to 3.0 Tissue heart valves INR 2.0 to 3.0 Mechanical prosthetic valves INR 2.5 to 3.5 Prevention of recurrent GA INR 2.5 to 3.5 Satnam Beckford MD LAB BLOOD ORDERABLES Final Result Performing Organization Address City/[facility] [address]/[facility] Co de Phone Number [facility] [address] [place] [address] * (ABNORMAL) CBC W/O Differential (01/04/2025 3:01 PM EST) WBC Count 10.03 3.70 - 10.30 10*3/uL LAB HEMATOLOGY METHOD 01/04/2025 3:17 PM EST [facility] RBC Count 2.74(L) 4.60 - 6.10 10*6/uL LAB HEMATOLOGY METHOD 01/04/2025 3:17 PM EST [facility] HGB 8.2(L) 13.7 - 17.5 g/dL LAB HEMATOLOGY METHOD 01/04/2025 3:17 PM EST [facility] HCT 23.9(L) 40.0 - 51.0 % LAB HEMATOLOGY METHOD 01/04/2025 3:17 PM EST [facility] Platelet Count 61(L) 155 - 369 10*3/uL LAB HEMATOLOGY METHOD 01/04/2025 3:17 PM EST [facility] MCV 87 79 - 98 fL LAB HEMATOLOGY METHOD 01/04/2025 3:17 PM EST [facility] MCH 29.9 26.0 - 32.0 pg LAB HEMATOLOGY METHOD 01/04/2025 3:17 PM EST [facility] MCHC 34.3 30.7 - 35.5 g/dL LAB HEMATOLOGY METHOD 01/04/2025 3:17 PM EST [facility] RDW 19.8(H) 11.5 - 14.5 % LAB HEMATOLOGY METHOD 01/04/2025 3:17 PM EST [facility] MPV 10.0 8.8 - 12.5 fL LAB HEMATOLOGY METHOD 01/04/2025 3:17 PM EST [facility] nRBC 0.0 <=0.0 per 100 WBCs LAB HEMATOLOGY METHOD 01/04/2025 3:17 PM EST [facility] Blood Venous blood specimen / Unknown Venipuncture / Unknown 01/04/2025 3:01 PM EST 01/04/2025 3:10 PM EST Result [facility] [place] Satnam Beckford MD LAB BLOOD ORDERABLES Final Result Performing Organization Address City/State/[facility] Co de Phone Number [facility] [address] [place] [address] * Transfuse fresh frozen plasma (01/04/2025 2:20 PM EST) Camilla Soto APRN, DNP BLOOD TRANSFUSION ORDERAB LES Final Result * Transfuse fresh frozen plasma: 1 Units (01/04/2025 2:20 PM EST) Result Carly Soto APRN, DNP BLOOD TRANSFUSION ORDERAB LES Final Result * Transfuse platelets (01/04/2025 12:11 PM EST) us Camilla Soto APRN, DNP BLOOD TRANSFUSION ORDERAB LES Final Result * Transfuse platelets: 1 Units (01/04/2025 12:11 PM EST) us Camilla Soto APRN, DNP BLOOD TRANSFUSION ORDERAB LES Final Result * (ABNORMAL) Hemoglobin and Hematocrit, Blood (01/04/2025 11:46 AM EST) HGB 8.5(L) 13.7 - 17.5 g/dL LAB HEMATOLOGY METHOD 01/04/2025 12:00 PM EST [facility] HCT 25.0(L) 40.0 - 51.0 % LAB HEMATOLOGY METHOD 01/04/2025 12:00 PM EST [facility] Blood Venous blood specimen / Unknown Venipuncture / Unknown 01/04/2025 11:46 AM EST 01/04/2025 11:52 AM EST Satnam Beckford MD LAB BLOOD ORDERABLES Final Result Performing Organization Address City/State/[facility] Co de Phone Number [facility] [address] [place] [address] * Transfuse RBC (01/04/2025 11:24 AM EST) Camilla Soto APRN, DNP BLOOD TRANSFUSION ORDERAB LES Final Result * Transfuse RBC: 1 Units (01/04/2025 11:24 AM EST) Camilla Soto APRN, DNP BLOOD TRANSFUSION ORDERAB LES Final Result * (ABNORMAL) POCT glucose meter (01/04/2025 11:14 AM EST) Pathologist [facility] POCT Glucose 118(H) 74 - 99 mg/dL 01/04/2025 11:16 AM EST [facility] Comment:Accuracy of a [...] Comment 01/04/2025 11:16 AM EST [facility] Office Sweeper ID Tila Vazquez 11:16 AM EST [employer] LAB Device ID [id number] 01/04/2025 11:16 AM EST [employer] [facility] Specimen Type POC Capillary 01/04/2025 11:16 AM EST [facility] Blood Capillary blood specimen / Unknown 01/04/2025 11:14 AM EST 01/04/2025 11:16 AM EST Satnam Beckford MD LAB POINT OF CARE T EST DOCKED DEVICE UNSOLICITED RESULTS Final Result [facility] [address] [place] [address] * US Abdomen Focused Region Liver (01/04/2025 [...] on 01/04/2025 11:42 AM Satnam Beckford MD [facility] US PROCEDURES Final Res ult * Prepare Leukocyte Reduced Platelets: 1 Units (01/04/2025 10:15 AM EST) Product Code [id number] BLOO D BANK Dispense Status Transfused BLOOD BANK Blood Expiration Date [id number] BLOOD BANK Unit Number [id number] CH B LOOD BANK Product Blood Type 0600 BLOOD BANK Blood Type A- CH BLOOD BANK Blood Venous blood specimen / Unknown Camilla Soto APRN, DNP BLOOD BANK PRODUCT ORDERA BLES Final Result Performing Organization Address City/State/[facility] de Phone Number BLOOD BANK [address] [place] [address], * Transfuse RBC (01/04/2025 9:53 AM EST) Camilla Soto APRN, DNP BLOOD TRANSFUSION ORDERAB LES Final Result * Transfuse RBC: 1 Units (01/04/2025 9:53 AM EST) Camilla Soto APRN, DNP BLOOD TRANSFUSION ORDERAB LES Final Result * [facility], E/M 30-74 MINUTES (01/04/2025 9:16 [...] Plasma: 1 Units (01/04/2025 8:51 AM EST) [facility] Product Code [id number] BLOO D BANK Dispense Status Transfused BLOOD BANK Blood Expiration Date [id number] BLOOD BANK Unit Number [id number] CH B LOOD BANK Product Blood Type 8400 BLOOD BANK Blood Type AB+ BLOOD BANK Blood Venous blood specimen / Unknown us Camilla Soto APRN, DNP BLOOD BANK PRODUCT ORDERA BLES Final Result Performing Organization Address City/[facility] [address]/ZIP Co de Phone Number BLOOD BANK [address] [place] [address], * (ABNORMAL) TEG Global Hemostasis with Lysis (01/04/2025 8:17 AM EST) R, Lysis 7.2 4.6 - 9.1 min 01/04/2025 9:39 AM EST [facility] MA, Rapid, Lysis <40.0(L) 52.0 - 70.0 mm 01/04/2025 9:39 AM EST [facility] MA, Fibrinogen, Lysis 8.7(L) 15.0 - 32.0 mm 01/04/2025 9:39 AM EST [facility] LY30 0.0 0.0 - 2.6 % 01/04/2025 9:39 AM EST [facility] Blood Arterial blood specimen / Unknown Arterial Line / Unknown 01/04/2025 8:17 AM EST 01/04/2025 8:29 AM EST Rivka Gonzalez [employer] LAB BLOOD ORDERABLES Fin al Result Performing Organization Address [facility] [address]/ZIP Co de Phone Number [facility] [address] [place] [address] * Prepare Leukocyte Reduced RBC: 1 Units (01/04/2025 8:04 AM EST) Product Code [id number] CH BLOO D BANK Dispense Status Transfused BLOOD BANK Blood Expiration Date [id number] BLOOD BANK Unit Number [id number] CH B LOOD BANK Product Blood Type 0600 BLOOD BANK Blood Type A- BLOOD BANK Crossmatch Compatible BLOOD BANK Other Camilla Soto APRN, DNP BLOOD BANK PRODUCT ORDERA BLES Final Result Performing Organization Address City/[facility] [address]/ZIP Co de Phone Number BLOOD BANK [address] * Prepare Leukocyte Reduced RBC: 1 Units (01/04/2025 7:47 AM EST) Product Code [id number] BLOO D BANK Dispense Status Transfused BLOOD BANK Blood Expiration Date [id number] BLOOD BANK Unit Number [id number] CH B LOOD BANK Product Blood Type 0600 BLOOD BANK Blood Type A- CH BLOOD BANK Crossmatch Compatible BLOOD BANK Other Camilla Soto SHIFTMAN, DNP BLOOD BANK PRODUCT ORDERA BLES Final Result [facility]ANK [address] * (ABNORMAL) Phosphorus, Plasma (01/04/2025 7:32 AM EST) Phosphorus, Plasma 6.3(H) 2.5 - 4.5 mg/dL 01/04/2025 8:10 AM EST [facility] Blood Venous blood specimen / Unknown Venipuncture / Unknown 01/04/2025 7:32 AM EST 01/04/2025 7:39 AM EST Satnam Beckford MD LAB BLOOD ORDERABLES Final Result [facility] [address] [place] [address] * Magnesium, Plasma (01/04/2025 7:32 AM EST) Magnesium, Plasma 2.4 1.9 - 2.4 mg/dL 01/04/2025 8:10 AM EST [facility] Blood Venous blood specimen / Unknown Venipuncture / Unknown 01/04/2025 7:32 AM EST 01/04/2025 7:39 AM EST Satnam Beckford MD LAB BLOOD ORDERABLES Final Result [facility] [address] [place] [address] * (ABNORMAL) Prothrombin Time/INR (01/04/2025 7:32 AM EST) Prothrombin Time 23.4(H) 12.0 - 14.3 sec LAB COAGULATION METHOD 01/04/2025 7:55 AM EST [facility] INR 2.0(H) 0.9 - 1.1 LAB COAGULATION METHOD 01/04/2025 7:55 AM EST [facility] Blood Venous blood specimen / Unknown Venipuncture / Unknown 01/04/2025 7:32 AM EST 01/04/2025 7:38 AM EST Narrative [facility] - 01/04/2025 7:55 AM EST OPTIMAL INR RANGES FOR PATIENT ON ORAL ANTICOAGULANT THERAPY Prevention of venous thromboembolism INR 2.0 to 3.0 In patients with heart disease: Atrial fibrillation INR 2.0 to 3.0 Valvular heart disease INR 2.0 to 3.0 Tissue heart valves INR 2.0 to 3.0 Mechanical prosthetic valves INR 2.5 to 3.5 Prevention of recurrent GA INR 2.5 to 3.5 us Satnam Beckford MD LAB BLOOD ORDERABLES Final Result [facility] [address] [place] [address] * (ABNORMAL) Comprehensive metabolic panel (01/04/2025 7:32 AM EST) Pathologist [facility] Glucose, Plasma 130(H) 74 - 99 mg/dL 01/04/2025 8:10 AM EST [facility] BUN, Plasma 29(H) 7 - 21 mg/dL 01/04/2025 8:10 AM EST [facility] Creatinine, Plasma 1.64(H) 0.70 - 1.20 mg/dL 01/04/2025 8:10 AM EST [facility] BUN/Creatinine Ratio 18 01/04/2025 8:10 AM EST [facility] Sodium, Plasma 140 136 - 145 mmol/L 01/04/2025 8:10 AM EST [facility] Potassium, Plasma 4.6 3.6 - 4.9 mmol/L 01/04/2025 8:10 AM EST [facility] Chloride, Plasma 110(H) 97 - 107 mmol/L 01/04/2025 8:10 AM EST [facility] CO2, Plasma 16(L) 22 - 29 mmol/L 01/04/2025 8:10 AM EST [facility] Anion Gap 14 6 - 16 mmol/L 01/04/2025 8:10 AM EST [facility] Total Calcium, Plasma 8.3(L) 8.9 - 10.2 mg/dL 01/04/2025 8:10 AM EST [facility] Total Protein 4.6(L) 6.3 - 7.9 g/dL 01/04/2025 8:10 AM EST [facility] Albumin, Plasma 3.0(L) 3.5 - 5.2 g/dL 01/04/2025 8:10 AM EST [facility] AST, Plasma 264(H) 10 - 50 U/L 01/04/2025 8:10 AM EST [facility] ALT, Plasma 177(H) 10 - 50 U/L 01/04/2025 8:10 AM EST [facility] Alkaline Phosphatase, Plasma 63 40 - 115 U/L 01/04/2025 8:10 AM EST [facility] Total Bilirubin, Plasma 4.9(H) 0.2 - 1.1 mg/dL 01/04/2025 8:10 AM EST [facility] eGFRcr 52.2 mL/min/1.7 3m*2 01/04/2025 8:10 AM EST [facility] Comment:Reported eGFRcr in m L/min/1.73m2 is based the CKD-EPI 2020 equation that does not use a race coefficient. Blood Venous blood specimen / Unknown Venipuncture / Unknown 01/04/2025 7:32 AM EST 01/04/2025 7:39 AM EST us Satnam Beckford MD LAB BLOOD ORDERABLES Final Result [facility] [address] [place] [address] * (ABNORMAL) CBC W/O Differential (01/04/2025 7:32 AM EST) WBC Count 8.55 3.70 - 10.30 10*3/uL LAB HEMATOLOGY METHOD 01/04/2025 7:49 AM EST [facility] RBC Count 2.26(L) 4.60 - 6.10 10*6/uL LAB HEMATOLOGY METHOD 01/04/2025 7:49 AM EST [facility] HGB 6.7(L) 13.7 - 17.5 g/dL LAB HEMATOLOGY METHOD 01/04/2025 7:49 AM EST [facility] HCT 20.3(L) 40.0 - 51.0 % LAB HEMATOLOGY METHOD 01/04/2025 7:49 AM EST [facility] Platelet Count 51(L) 155 - 369 10*3/uL LAB HEMATOLOGY METHOD 01/04/2025 7:49 AM EST [facility] MCV 90 79 - 98 fL LAB HEMATOLOGY METHOD 01/04/2025 7:49 AM EST [facility] MCH 29.6 26.0 - 32.0 pg LAB HEMATOLOGY METHOD 01/04/2025 7:49 AM EST [facility] MCHC 33.0 30.7 - 35.5 g/dL LAB HEMATOLOGY METHOD 01/04/2025 7:49 AM EST [facility] RDW 21.7(H) 11.5 - 14.5 % LAB HEMATOLOGY METHOD 01/04/2025 7:49 AM EST [facility] MPV 10.7 8.8 - 12.5 fL LAB HEMATOLOGY METHOD 01/04/2025 7:49 AM EST [facility] nRBC 0.0 <=0.0 per 100 WBCs LAB HEMATOLOGY METHOD 01/04/2025 7:49 AM EST [facility] Blood Venous blood specimen / Unknown Venipuncture / Unknown 01/04/2025 7:32 AM EST 01/04/2025 7:39 AM EST us Satnam Beckford MD LAB BLOOD ORDERABLES Final Result [facility] [address] [place] [address] * (ABNORMAL) Hemoglobin and hematocrit, blood (01/04/2025 6:00 AM EST) Pathologist [facility] HGB 7.4(L) 13.7 - 17.5 g/dL LAB HEMATOLOGY METHOD 01/04/2025 6:15 AM EST [facility] HCT 22.3(L) 40.0 - 51.0 % LAB HEMATOLOGY METHOD 01/04/2025 6:15 AM EST [facility] Blood Venous blood specimen / Unknown Venipuncture / Unknown 01/04/2025 6:00 AM EST 01/04/2025 6:06 AM EST us Kathy Jiang SHIFTMAN, DNP LAB BLOOD ORDERABLES Fi nal Result Performing Organization Address City/[facility] [address]/ZIP Co de Phone Number [facility] [address] [place] [address] * (ABNORMAL) POCT glucose meter (01/04/2025 5:59 AM EST) [facility] POCT Glucose 129(H) 74 - 99 mg/dL [...] 01/04/2025 6:01 AM EST [facility] Office Sweeper ID Eleazar Bradford 6:01 AM EST [facility] Device ID [id number] 01/04/2025 6:01 AM EST [facility] Specimen Type POC Arterial 01/04/2025 6:01 AM EST [facility] Blood Arterial blood specimen / Unknown 01/04/2025 5:59 AM EST 01/04/2025 6:01 AM EST Satnam Beckford MD LAB POINT OF CARE T EST DOCKED DEVICE UNSOLICITED RESULTS Final Result Performing Organization Address City/[facility] [address]/ZIP Co de Phone Number [facility] [address] [place] [address] * XR Chest 1 View (01/04/2025 4:55 AM EST) Anatomical Region Laterality Modality Chest Digital Radiogra phy Impressions 01/04/2025 11:41 AM EST Mild interval advancement of the [place]-Héctor catheter and removal of the nasogastric tube. [...] day prior FINDINGS: Interval advancement of the [place]-Héctor catheter, the tip now projects over the [...] day prior FINDINGS: Interval advancement of the [place]-Héctor catheter, the tip now projects overthe right pulmonary artery. Interval removal of the nasogastric tube. Therest of the visualized support hardware are unchanged. Thecardiomediastinal contours unchanged. No pneumothorax. Small left pleuraleffusion. Mild pulmonary vascular congestion. Persistent low lung volume.Similar bibasal lung opacities which may represent atelectasis and/orairspace disease. IMPRESSION: Mild interval advancement of the [place]-Héctor catheter and removal of thenasogastric tube. Otherwise, no significant interval change. CRITICAL RESULT: No. COMMUNICATION: Per this written report. Drafted by Hermila Tapia MD on 01/04/2025 11:38 AM Final report signed by Hermila Tapia MD on 01/04/2025 11:41 AM us Satnam Beckford MD IMG XR PROCEDURES Final Res ult * Transfuse RBC (01/04/2025 1:56 AM EST) us Kathy Jiang APRN, DNP BLOOD TRANSFUSION ORDER GIANFRANCO Final Result * Transfuse RBC: 1 Units (01/04/2025 1:56 AM EST) us Kathy Jiang APRN, DNP BLOOD TRANSFUSION ORDER GIANFRANCO Final Result * Prepare Leukocyte Reduced RBC: 1 Units (01/03/2025 11:49 PM EST) Pathologist [facility] Product Code [id number] BLOO D BANK Dispense Status Transfused BLOOD BANK Blood Expiration Date [id number] BLOOD BANK Unit Number [id number] B LOOD BANK Product Blood Type 0600 BLOOD BANK Blood Type A- BLOOD BANK Crossmatch Compatible BLOOD BANK Other us Kathy Jiang APRN, DNP BLOOD BANK PRODUCT ORDE RABLES Final Result Performing Organization Address City/State/[facility] de Phone Number BLOOD BANK [address] * (ABNORMAL) POCT glucose meter (01/03/2025 11:34 PM EST) [facility] POCT Glucose 142(H) 74 - [...] 01/03/2025 11:35 PM EST [facility] Office Sweeper ID Eleazar Bradford 11:35 PM EST [facility] Device ID [id number] 01/03/2025 11:35 PM EST [facility] Specimen Type POC Arterial 01/03/2025 11:35 PM EST [facility] Blood Arterial blood specimen / Unknown 01/03/2025 11:34 PM EST 01/03/2025 11:35 PM EST Satnam Beckford MD LAB POINT OF CARE T EST DOCKED DEVICE UNSOLICITED RESULTS Final Result Performing Organization Address City/[facility] [address]/[facility] Co de Phone Number [facility] [address] [place] [address] * (ABNORMAL) Phosphorus, Plasma (01/03/2025 11:29 PM EST) Phosphorus, Plasma 5.6(H) 2.5 - 4.5 mg/dL 01/04/2025 12:10 AM EST [facility] Blood Venous blood specimen / Unknown Venipuncture / Unknown 01/03/2025 11:29 PM EST 01/03/2025 11:40 PM EST Satnam Beckford MD LAB BLOOD ORDERABLES Final Result Performing Organization Address [facility] [address]/[facility] Co de Phone Number [facility] [address] [place] [address] * (ABNORMAL) Magnesium, Plasma (01/03/2025 11:29 PM EST) Magnesium, Plasma 2.5(H) 1.9 - 2.4 mg/dL 01/04/2025 12:10 AM EST [facility] Blood Venous blood specimen / Unknown Venipuncture / Unknown 01/03/2025 11:29 PM EST 01/03/2025 11:40 PM EST Satnam Beckford MD LAB BLOOD ORDERABLES Final Result Performing Organization Address City/[facility] [address]/ZIP Co de Phone Number [facility] [address] [place] [address] * (ABNORMAL) Prothrombin Time/INR (01/03/2025 11:29 PM EST) Prothrombin Time 22.3(H) 12.0 - 14.3 sec LAB COAGULATION METHOD 01/04/2025 12:36 AM EST [facility] INR 1.9(H) 0.9 - 1.1 LAB COAGULATION METHOD 01/04/2025 12:36 AM EST [facility] Blood Venous blood specimen / Unknown Venipuncture / Unknown 01/03/2025 11:29 PM EST 01/03/2025 11:40 PM EST [facility] - 01/04/2025 12:36 AM EST OPTIMAL INR RANGES FOR PATIENT ON ORAL ANTICOAGULANT THERAPY Prevention of venous thromboembolism INR 2.0 to 3.0 In patients with heart disease: Atrial fibrillation INR 2.0 to 3.0 Valvular heart disease INR 2.0 to 3.0 Tissue heart valves INR 2.0 to 3.0 Mechanical prosthetic valves INR 2.5 to 3.5 Prevention of recurrent GA INR 2.5 to 3.5 us Satnam Beckford MD LAB BLOOD ORDERABLES Final Result [facility] [address] [place] [address] * (ABNORMAL) Comprehensive metabolic panel (01/03/2025 11:29 PM EST) Glucose, Plasma 163(H) 74 - 99 mg/dL 01/04/2025 12:10 AM EST [facility] BUN, Plasma 24(H) 7 - 21 mg/dL 01/04/2025 12:10 AM EST [facility] Creatinine, Plasma 1.40(H) 0.70 - 1.20 mg/dL 01/04/2025 12:10 AM EST [facility] BUN/Creatinine Ratio 17 01/04/2025 12:10 AM EST [facility] Sodium, Plasma 141 136 - 145 mmol/L 01/04/2025 12:10 AM EST [facility] Potassium, Plasma 4.3 3.6 - 4.9 mmol/L 01/04/2025 12:10 AM EST [facility] Chloride, Plasma 112(H) 97 - 107 mmol/L 01/04/2025 12:10 AM EST [facility] CO2, Plasma 18(L) 22 - 29 mmol/L 01/04/2025 12:10 AM EST [facility] Anion Gap 11 6 - 16 mmol/L 01/04/2025 12:10 AM EST [facility] Total Calcium, Plasma 8.5(L) 8.9 - 10.2 mg/dL 01/04/2025 12:10 AM EST [facility] Total Protein 4.5(L) 6.3 - 7.9 g/dL 01/04/2025 12:10 AM EST [facility] Albumin, Plasma 2.8(L) 3.5 - 5.2 g/dL 01/04/2025 12:10 AM EST [facility] AST, Plasma 459(H) 10 - 50 U/L 01/04/2025 12:10 AM EST [facility] ALT, Plasma 223(H) 10 - 50 U/L 01/04/2025 12:10 AM EST [facility] Alkaline Phosphatase, Plasma 80 40 - 115 U/L 01/04/2025 12:10 AM EST [facility] Total Bilirubin, Plasma 7.5(H) 0.2 - 1.1 mg/dL 01/04/2025 12:10 AM EST [facility] eGFRcr 63.2 mL/min/1.7 3m*2 01/04/2025 12:10 AM EST [facility] Comment:Reported eGFRcr in m L/min/1.73m2 is based the CKD-EPI 2020 equation that does not use a race coefficient. Blood Venous blood specimen / Unknown Venipuncture / Unknown 01/03/2025 11:29 PM EST 01/03/2025 11:40 PM EST us Satnam Beckford MD LAB BLOOD ORDERABLES Final Result Performing Organization Address City/State/[facility] Co de Phone Number [facility] [address] [place] [address] * (ABNORMAL) CBC W/O Differential (01/03/2025 11:29 PM EST) WBC Count 8.83 3.70 - 10.30 10*3/uL LAB HEMATOLOGY METHOD 01/03/2025 11:47 PM EST [facility] RBC Count 2.59(L) 4.60 - 6.10 10*6/uL LAB HEMATOLOGY METHOD 01/03/2025 11:47 PM EST [facility] HGB 7.7(L) 13.7 - 17.5 g/dL LAB HEMATOLOGY METHOD 01/03/2025 11:47 PM EST [facility] HCT 23.3(L) 40.0 - 51.0 % LAB HEMATOLOGY METHOD 01/03/2025 11:47 PM EST [facility] Platelet Count 59(L) 155 - 369 10*3/uL LAB HEMATOLOGY METHOD 01/03/2025 11:47 PM EST [facility] MCV 90 79 - 98 fL LAB HEMATOLOGY METHOD 01/03/2025 11:47 PM EST [facility] MCH 29.7 26.0 - 32.0 pg LAB HEMATOLOGY METHOD 01/03/2025 11:47 PM EST [facility] MCHC 33.0 30.7 - 35.5 g/dL LAB HEMATOLOGY METHOD 01/03/2025 11:47 PM EST [facility] RDW 22.9(H) 11.5 - 14.5 % LAB HEMATOLOGY METHOD 01/03/2025 11:47 PM EST [facility] MPV 10.1 8.8 - 12.5 fL LAB HEMATOLOGY METHOD 01/03/2025 11:47 PM EST [facility] nRBC 0.0 <=0.0 per 100 WBCs LAB HEMATOLOGY METHOD 01/03/2025 11:47 PM EST [facility] Blood Venous blood specimen / Unknown Venipuncture / Unknown 01/03/2025 11:29 PM EST 01/03/2025 11:40 PM EST us Satnam Beckford MD LAB BLOOD ORDERABLES Final Result Performing Organization Address City/State/[facility] Co de Phone Number [facility] [address] [place] [address] * Transfuse fresh frozen plasma (01/03/2025 9:03 PM EST) us Kathy Jiang APRN, DNP BLOOD TRANSFUSION ORDER GIANFRANCO Final Result * Transfuse fresh frozen plasma: 1 Units (01/03/2025 9:03 PM EST) us Kathy Jiang APRN, DNP BLOOD TRANSFUSION ORDER GIANFRANCO Final Result * Prepare Fresh Frozen Plasma: 1 Units (01/03/2025 7:57 PM EST) Product Code [id number] BLOO D BANK Dispense Status Transfused BLOOD BANK Blood Expiration Date [id number] BLOOD BANK Unit Number [id number] CH B LOOD BANK Product Blood Type 6200 BLOOD BANK Blood Type A+ BLOOD BANK Blood Venous blood specimen / Unknown Kathy Jiang SHIFTMAN, DNP BLOOD BANK PRODUCT ORDE RABKEYONNA Final Result Performing Organization Address [facility] [address]/ZIP Co de Phone Number BLOOD BANK [address] * (ABNORMAL) Phosphorus, Plasma (01/03/2025 7:23 PM EST) Phosphorus, Plasma 5.0(H) 2.5 - 4.5 mg/dL 01/03/2025 8:01 PM EST [facility] Blood Venous blood specimen / Unknown Venipuncture / Unknown 01/03/2025 7:23 PM EST 01/03/2025 7:30 PM EST Satnam Beckford MD LAB BLOOD ORDERABLES Final Result Performing Organization Address City/[facility] [address]/ZIP Co de Phone Number [facility] [address] [place] [address] * (ABNORMAL) Magnesium, Plasma (01/03/2025 7:23 PM EST) Magnesium, Plasma 1.8(L) 1.9 - 2.4 mg/dL 01/03/2025 8:01 PM EST [facility] Blood Venous blood specimen / Unknown Venipuncture / Unknown 01/03/2025 7:23 PM EST 01/03/2025 7:30 PM EST Satnam Beckford MD LAB BLOOD ORDERABLES Final Result Performing Organization Address City/[facility] [address]/ZIP Co de Phone Number [facility] [address] [place] [address] * (ABNORMAL) Prothrombin Time/INR (01/03/2025 7:23 PM EST) Prothrombin Time 22.9(H) 12.0 - 14.3 sec LAB COAGULATION METHOD 01/03/2025 7:46 PM EST [facility] INR 2.0(H) 0.9 - 1.1 LAB COAGULATION METHOD 01/03/2025 7:46 PM EST [facility] Blood Venous blood specimen / Unknown Venipuncture / Unknown 01/03/2025 7:23 PM EST 01/03/2025 7:30 PM EST Narrative [facility] - 01/03/2025 7:46 PM EST OPTIMAL INR RANGES FOR PATIENT ON ORAL ANTICOAGULANT THERAPY Prevention of venous thromboembolism INR 2.0 to 3.0 In patients with heart disease: Atrial fibrillation INR 2.0 to 3.0 Valvular heart disease INR 2.0 to 3.0 Tissue heart valves INR 2.0 to 3.0 Mechanical prosthetic valves INR 2.5 to 3.5 Prevention of recurrent GA INR 2.5 to 3.5 Satnam Beckford MD LAB BLOOD ORDERABLES Final Result [facility] [address] [place] [address] * (ABNORMAL) Comprehensive metabolic panel (01/03/2025 7:23 PM EST) Glucose, Plasma 146(H) 74 - 99 mg/dL 01/03/2025 8:01 PM EST [facility] BUN, Plasma 21 7 - 21 mg/dL 01/03/2025 8:01 PM EST [facility] Creatinine, Plasma 1.25(H) 0.70 - 1.20 mg/dL 01/03/2025 8:01 PM EST [facility] BUN/Creatinine Ratio 17 01/03/2025 8:01 PM EST [facility] Sodium, Plasma 140 136 - 145 mmol/L 01/03/2025 8:01 PM EST [facility] Potassium, Plasma 4.5 3.6 - 4.9 mmol/L 01/03/2025 8:01 PM EST [facility] Chloride, Plasma 111(H) 97 - 107 mmol/L 01/03/2025 8:01 PM EST [facility] CO2, Plasma 19(L) 22 - 29 mmol/L 01/03/2025 8:01 PM EST [facility] Anion Gap 10 6 - 16 mmol/L 01/03/2025 8:01 PM EST [facility] Total Calcium, Plasma 8.8(L) 8.9 - 10.2 mg/dL 01/03/2025 8:01 PM EST [facility] Total Protein 4.5(L) 6.3 - 7.9 g/dL 01/03/2025 8:01 PM EST [facility] Albumin, Plasma 2.7(L) 3.5 - 5.2 g/dL 01/03/2025 8:01 PM EST [facility] AST, Plasma 612(H) 10 - 50 U/L 01/03/2025 8:01 PM [facility] ALT, Plasma 245(H) 10 - 50 U/L 01/03/2025 8:01 PM [facility] Alkaline Phosphatase, Plasma 84 40 - 115 U/L 01/03/2025 8:01 PM EST [facility] Total Bilirubin, Plasma 11.0(H) 0.2 - 1.1 mg/dL 01/03/2025 8:01 PM [facility] eGFRcr 72.4 mL/min/1.7 3m*2 01/03/2025 8:01 PM [facility] Comment:Reported eGFRcr in m L/min/1.73m2 is based the CKD-EPI 2020 equation that does not use a race coefficient. Blood Venous blood specimen / Unknown Venipuncture / Unknown 01/03/2025 7:23 PM EST 01/03/2025 7:30 PM EST us Satnam Beckford MD LAB BLOOD ORDERABLES Final Result [facility] [address] [place] [address] * (ABNORMAL) CBC W/O Differential (01/03/2025 7:23 PM EST) WBC Count 8.84 3.70 - 10.30 10*3/uL LAB HEMATOLOGY METHOD 01/03/2025 7:37 PM [facility] RBC Count 2.72(L) 4.60 - 6.10 10*6/uL LAB HEMATOLOGY METHOD 01/03/2025 7:37 PM EST [facility] HGB 8.2(L) 13.7 - 17.5 g/dL LAB HEMATOLOGY METHOD 01/03/2025 7:37 PM EST [facility] HCT 24.9(L) 40.0 - 51.0 % LAB HEMATOLOGY METHOD 01/03/2025 7:37 PM EST [facility] Platelet Count 57(L) 155 - 369 10*3/uL LAB HEMATOLOGY METHOD 01/03/2025 7:37 PM EST [facility] MCV 92 79 - 98 fL LAB HEMATOLOGY METHOD 01/03/2025 7:37 PM EST [facility] MCH 30.1 26.0 - 32.0 pg LAB HEMATOLOGY METHOD 01/03/2025 7:37 PM EST [facility] MCHC 32.9 30.7 - 35.5 g/dL LAB HEMATOLOGY METHOD 01/03/2025 7:37 PM EST [facility] RDW 23.0(H) 11.5 - 14.5 % LAB HEMATOLOGY METHOD 01/03/2025 7:37 PM EST [facility] MPV 10.2 8.8 - 12.5 fL LAB HEMATOLOGY METHOD 01/03/2025 7:37 PM EST [facility] nRBC 0.0 <=0.0 per 100 WBCs LAB HEMATOLOGY METHOD 01/03/2025 7:37 PM EST [facility] Blood Venous blood specimen / Unknown Venipuncture / Unknown 01/03/2025 7:23 PM EST 01/03/2025 7:30 PM EST us Satnam Beckford MD LAB BLOOD ORDERABLES Final Result [facility] [address] [place] [address] * (ABNORMAL) POCT glucose meter (01/03/2025 5:29 [...] 01/03/2025 5:31 PM EST [facility] Office Sweeper ID Elyssa Augustin 01/03/2025 5:31 PM EST [facility] Device ID [id number] 01/03/2025 5:31 PM EST [facility] Specimen Type POC Arterial 01/03/2025 5:31 PM EST [facility] Blood Arterial blood specimen / Unknown 01/03/2025 5:29 PM EST 01/03/2025 5:31 PM EST Satnam Beckford MD LAB POINT OF CARE T EST DOCKED DEVICE UNSOLICITED RESULTS Final Result Performing Organization Address City/State/[facility] de Phone Number [facility] [address] [place] [address] * Transfuse fresh frozen plasma (01/03/2025 4:30 PM EST) Camilla Soto APRN, DNP BLOOD TRANSFUSION ORDERAB LES Final Result * Transfuse fresh frozen plasma: 1 Units (01/03/2025 4:30 PM EST) us Camilla Soto APRN, DNP BLOOD TRANSFUSION ORDERAB LES Final Result * (ABNORMAL) POCT glucose meter (01/03/2025 4:13 PM EST) [facility] POCT Glucose 141(H) 74 - [...] 01/03/2025 4:15 PM EST [facility] Office Sweeper ID Elyssa Augustin 01/03/2025 4:15 PM EST [facility] Device ID [id number] 01/03/2025 4:15 PM EST [facility] Specimen Type POC Arterial 01/03/2025 4:15 PM EST [facility] Blood Arterial blood specimen / Unknown 01/03/2025 4:13 PM EST 01/03/2025 4:15 PM EST Satnam Beckford MD LAB POINT OF CARE T EST DOCKED DEVICE UNSOLICITED RESULTS Final Result Performing Organization Address [facility] [address] [facility] de Phone Number [facility] [address] [place] [address] * Tylor auris Surveillance by PCR (01/03/2025 4:09 PM EST) Tylor auris PCR Result Not Detected Not Detected 01/04/2025 11:52 AM EST [facility] Swab (Axilla and Groin) Non-blood Collection / Unknown 01/03/2025 4:09 PM EST 01/03/2025 4:28 PM EST Narrative [facility] - 01/04/2025 11:52 AM EST This PCR assay was developed and its performance characteristics determined by [facility] as appropriate for clinical purposes. This assay has not been cleared or approved by the FDA, but is performed in a CLIA regulated laboratory that is qualified to perform high-complexity testing. Satnam Beckford MD LAB MICROBIOLOGY - GENERAL ORDERABLES Final Result Performing Organization Address City/[facility] [address]/[facility] Co de Phone Number [facility] [address] [place] [address] * Multi Drug Resistance Test (01/03/2025 4:09 PM EST) Culture No growth at day 1 01/05/2025 5:36 AM EST [facility] Swab (Nares and Lauren Rectal) Non-blood Collection / Unknown 01/03/2025 4:09 PM EST 01/03/2025 4:28 PM EST Narrative [facility] - 01/05/2025 5:36 AM EST This [...] LAB MICROBIOLOGY - GENERAL ORDERABLES Final Result [facility] [address] [place] [address] * (ABNORMAL) Blood gas panel with oximetry, mixed venous (01/03/2025 3:47 PM EST) pH, Mixed Venous 7.31(L) 7.32 - 7.43 LAB HEMATOLOGY METHOD 01/03/2025 3:56 PM EST [facility] pCO2, Mixed Venous 42 40 - 55 mmHg LAB HEMATOLOGY METHOD 01/03/2025 3:56 PM EST [facility] pO2, Mixed Venous 53(H) 25 - 40 mmHg LAB HEMATOLOGY METHOD 01/03/2025 3:56 PM EST [facility] SO2, Measured, Mixed Venous 87(H) 65 - 80 % LAB HEMATOLOGY METHOD 01/03/2025 3:56 PM EST [facility] Bicarbonate, Calculated, Mixed Venous 21(L) 22 - 26 mmol/L LAB HEMATOLOGY METHOD 01/03/2025 3:56 PM EST [facility] Base Excess, Mixed Venous -5.1(L) -2.0 - 3.0 mmol/L LAB HEMATOLOGY METHOD 01/03/2025 3:56 PM EST [facility] Hematocrit, Whole Blood 26.4(L) 40.0 - 51.0 % LAB HEMATOLOGY METHOD 01/03/2025 3:56 PM EST [facility] Sodium, Whole Blood 140 136 - 145 mmol/L LAB HEMATOLOGY METHOD 01/03/2025 3:56 PM EST [facility] Potassium, Whole Blood 4.5 3.6 - 4.9 mmol/L LAB HEMATOLOGY METHOD 01/03/2025 3:56 PM EST [facility] Chloride, Whole Blood 115(H) 97 - 107 mmol/L LAB HEMATOLOGY METHOD 01/03/2025 3:56 PM EST [facility] Ionized Calcium, Whole Blood 5.2(H) 4.6 - 5.1 mg/dL LAB HEMATOLOGY METHOD 01/03/2025 3:56 PM EST [facility] Glucose, Whole Blood 145(H) 74 - 99 mg/dL LAB HEMATOLOGY METHOD 01/03/2025 3:56 PM EST [facility] Oxyhemoglobin, Mixed Venous, Whole Blood 82.3(H) 40.0 - 70.0 % LAB HEMATOLOGY METHOD 01/03/2025 3:56 PM EST [facility] Hemoglobin Reduced, Mixed Venous, Whole Blood 12.6 % LAB HEMATOLOGY METHOD 01/03/2025 3:56 PM EST [facility] Total Hemoglobin, Mixed Venous, Whole Blood 8.6(L) 13.7 - 17.5 g/dL LAB HEMATOLOGY METHOD 01/03/2025 3:56 PM EST [facility] Blood Mixed venous blood specimen / Unknown Venipuncture / Unknown 01/03/2025 3:47 PM EST 01/03/2025 3:54 PM EST us Satnam Beckford MD LAB BLOOD ORDERABLES Final Result [facility] [address] [place] [address] * XR Abdomen 1 View (Adult Inpatients [...] of the abdomen. COMPARISON: None. FINDINGS: Limited [id number] abdominal radiograph for the purpose of locating tube position. The tip of the nasogastric tube is within the proximal stomach. Procedure Note Ernesto Rizo MD - 01/03/2025 CLINICAL INDICATION: Confirm proper placement of NG/OG tube TECHNIQUE: Supine radiograph of the abdomen. COMPARISON: None. FINDINGS: Limited [id number] abdominal radiograph for the purpose of locatingtube [...] tube tip overlies upper to midthoracic trachea. [place]-H[place]ctor catheter tip overlies main pulmonary artery. Right [...] Endotracheal tube tipoverlies upper to midthoracic trachea. [place]-Héctor catheter tip overliesmain pulmonary artery. Right IJ [...] IMG XR PROCEDURES Final Res ult * [facility], E/M 30-74 MINUTES (01/03/2025 3:18 [...] Units (01/03/2025 3:02 PM EST) Product Code X0640C86 CH BLOO D BANK Dispense Status Transfused BLOOD BANK Blood Expiration Date BLOOD BANK Unit Number [id number] CH B LOOD BANK Product Blood Type 6200 BLOOD BANK Blood Type A+ BLOOD BANK Blood Venous blood specimen / Unknown Camilla Soto APRN, DNP BLOOD BANK PRODUCT ORDERA BLES Final Result BLOOD BANK [address] [place] [address], * (ABNORMAL) Blood gas, arterial (01/03/2025 2:56 PM EST) pH, Arterial 7.31(L) 7.35 - 7.45 LAB HEMATOLOGY METHOD 01/03/2025 3:02 PM EST [facility] pCO2, Arterial 41 32 - 45 mmHg LAB HEMATOLOGY METHOD 01/03/2025 3:02 PM EST [facility] pO2, Arterial 107 83 - 108 mmHg LAB HEMATOLOGY METHOD 01/03/2025 3:02 PM EST [facility] SO2, Measured, Arterial 99(H) 94 - 98 % LAB HEMATOLOGY METHOD 01/03/2025 3:02 PM EST [facility] Base Excess, Arterial -5.2(L) -2.0 - 3.0 mmol/L LAB HEMATOLOGY METHOD 01/03/2025 3:02 PM EST [facility] Bicarbonate, Calculated, Arterial 21(L) 22 - 26 mmol/L LAB HEMATOLOGY METHOD 01/03/2025 3:02 PM EST [facility] Hematocrit, Whole Blood 25.7(L) 40.0 - 51.0 % LAB HEMATOLOGY METHOD 01/03/2025 3:02 PM EST [facility] Sodium, Whole Blood 139 136 - 145 mmol/L LAB HEMATOLOGY METHOD 01/03/2025 3:02 PM [facility] Potassium, Whole Blood 4.6 3.6 - 4.9 mmol/L LAB HEMATOLOGY METHOD 01/03/2025 3:02 PM EST [facility] Chloride, Whole Blood 115(H) 97 - 107 mmol/L LAB HEMATOLOGY METHOD 01/03/2025 3:02 PM [facility] Glucose, Whole Blood 146(H) 74 - 99 mg/dL LAB HEMATOLOGY METHOD 01/03/2025 3:02 PM [facility] Ionized Calcium, Whole Blood 5.1 4.6 - 5.1 mg/dL LAB HEMATOLOGY METHOD 01/03/2025 3:02 PM [facility] Lactate, Arterial, Whole Blood 1.7(H) 0.5 - 1.6 mmol/L LAB HEMATOLOGY METHOD 01/03/2025 3:02 PM [facility] Blood Arterial blood specimen / Unknown Arterial Puncture / Unknown 01/03/2025 2:56 PM EST 01/03/2025 3:01 PM EST Satnam Beckford MD LAB BLOOD ORDERABLES Final Result Performing Organization Address City/[facility] [address]/ZIP Co de Phone Number [facility] [address] [place] [address] * Phosphorus, Plasma (01/03/2025 2:54 PM EST) Phosphorus, Plasma 4.4 2.5 - 4.5 mg/dL 01/03/2025 3:58 PM EST [facility] Blood Venous blood specimen / Unknown Venipuncture / Unknown 01/03/2025 2:54 PM EST 01/03/2025 3:01 PM EST Satnam Beckford MD LAB BLOOD ORDERABLES Final Result Performing Organization Address [facility] [address]/ZIP Co de Phone Number [facility] [address] [place] [address] * (ABNORMAL) Magnesium, Plasma (01/03/2025 2:54 PM EST) Magnesium, Plasma 1.2(L) 1.9 - 2.4 mg/dL 01/03/2025 3:58 PM EST [facility] Blood Venous blood specimen / Unknown Venipuncture / Unknown 01/03/2025 2:54 PM EST 01/03/2025 3:01 PM EST Satnam Beckford MD LAB BLOOD ORDERABLES Final Result Performing Organization Address City/[facility] [address]/ZIP Co de Phone Number [facility] [address] [place] [address] * (ABNORMAL) Comprehensive metabolic panel (01/03/2025 2:54 PM EST) Glucose, Plasma 146(H) 74 - 99 mg/dL 01/03/2025 3:58 PM EST [facility] BUN, Plasma 17 7 - 21 mg/dL 01/03/2025 3:58 PM [facility] Creatinine, Plasma 1.02 0.70 - 1.20 mg/dL 01/03/2025 3:58 PM [facility] BUN/Creatinine Ratio 17 01/03/2025 3:58 PM [facility] Sodium, Plasma 140 136 - 145 mmol/L 01/03/2025 3:58 PM [facility] Potassium, Plasma 4.9 3.6 - 4.9 mmol/L 01/03/2025 3:58 PM [facility] Chloride, Plasma 114(H) 97 - 107 mmol/L 01/03/2025 3:58 PM [facility] CO2, Plasma 19(L) 22 - 29 mmol/L 01/03/2025 3:58 PM [facility] Anion Gap 7 6 - 16 mmol/L 01/03/2025 3:58 PM [facility] Total Calcium, Plasma 8.5(L) 8.9 - 10.2 mg/dL 01/03/2025 3:58 PM [facility] Total Protein 3.7(L) 6.3 - 7.9 g/dL 01/03/2025 3:58 PM [facility] Albumin, Plasma 2.2(L) 3.5 - 5.2 g/dL 01/03/2025 3:58 PM [facility] AST, Plasma 699(H) 10 - 50 U/L 01/03/2025 3:58 PM [facility] ALT, Plasma 243(H) 10 - 50 U/L 01/03/2025 3:58 PM [facility] Alkaline Phosphatase, Plasma 86 40 - 115 U/L 01/03/2025 3:58 PM [facility] Total Bilirubin, Plasma 11.2(H) 0.2 - 1.1 mg/dL 01/03/2025 3:58 PM [facility] eGFRcr 92.4 mL/min/1.7 3m*2 01/03/2025 3:58 PM [facility] Comment:Reported eGFRcr in m L/min/1.73m2 is based the CKD-EPI 2020 equation that does not use a race coefficient. Blood Venous blood specimen / Unknown Venipuncture / Unknown 01/03/2025 2:54 PM EST 01/03/2025 3:01 PM EST us Satnam Beckford MD LAB BLOOD ORDERABLES Final Result [facility] [address] [place] [address] * (ABNORMAL) CBC and Differential (01/03/2025 2:54 PM EST) WBC Count 6.95 3.70 - 10.30 10*3/uL LAB HEMATOLOGY METHOD 01/03/2025 3:09 PM EST [facility] RBC Count 2.80(L) 4.60 - 6.10 10*6/uL LAB HEMATOLOGY METHOD 01/03/2025 3:09 PM EST [facility] HGB 8.3(L) 13.7 - 17.5 g/dL LAB HEMATOLOGY METHOD 01/03/2025 3:09 PM EST [facility] HCT 26.1(L) 40.0 - 51.0 % LAB HEMATOLOGY METHOD 01/03/2025 3:09 PM EST [facility] Platelet Count 61(L) 155 - 369 10*3/uL LAB HEMATOLOGY METHOD 01/03/2025 3:09 PM EST [facility] MCV 93 79 - 98 fL LAB HEMATOLOGY METHOD 01/03/2025 3:09 PM EST [facility] Comment:Results inconsistent with previous lab findings. MCH 29.6 26.0 - 32.0 pg LAB HEMATOLOGY METHOD 01/03/2025 3:09 PM EST [facility] MCHC 31.8 30.7 - 35.5 g/dL LAB HEMATOLOGY METHOD 01/03/2025 3:09 PM EST [facility] RDW 22.7(H) 11.5 - 14.5 % LAB HEMATOLOGY METHOD 01/03/2025 3:09 PM EST [facility] MPV 9.4 8.8 - 12.5 fL LAB HEMATOLOGY METHOD 01/03/2025 3:09 PM EST [facility] nRBC 0.0 <=0.0 per 100 WBCs LAB HEMATOLOGY METHOD 01/03/2025 3:09 PM EST [facility] Differential Type Automated LAB HEMATOLOGY METHOD 01/03/2025 3:09 PM EST [facility] Neutrophils % 86 % LAB HEMATOLOGY METHOD 01/03/2025 3:09 PM EST [facility] Lymphocytes % 5 % LAB HEMATOLOGY METHOD 01/03/2025 3:09 PM EST [facility] Monocytes % 9 % LAB HEMATOLOGY METHOD 01/03/2025 3:09 PM EST [facility] Eosinophils % 0 % LAB HEMATOLOGY METHOD 01/03/2025 3:09 PM EST [facility] Basophils % 0 % LAB HEMATOLOGY METHOD 01/03/2025 3:09 PM EST [facility] Immature Granulocytes % 0 % LAB HEMATOLOGY METHOD 01/03/2025 3:09 PM EST [facility] Neutrophils Absolute 5.97 1.60 - 6.10 10*3/uL LAB HEMATOLOGY METHOD 01/03/2025 3:09 PM EST [facility] Lymphocytes Absolute 0.31(L) 1.20 - 3.90 10*3/uL LAB HEMATOLOGY METHOD 01/03/2025 3:09 PM EST [facility] Monocytes Absolute 0.61 0.30 - 0.90 10*3/uL LAB HEMATOLOGY METHOD 01/03/2025 3:09 PM EST [facility] [facility] Eosinophils Absolute 0.03 0.00 - 0.50 10*3/uL LAB HEMATOLOGY METHOD 01/03/2025 3:09 PM EST [facility] Basophils Absolute 0.01 0.00 - 0.10 10*3/uL LAB HEMATOLOGY METHOD 01/03/2025 3:09 PM [facility] Immature Granulocytes Absolute 0.02 0.00 - 0.06 10*3/uL LAB HEMATOLOGY METHOD 01/03/2025 3:09 PM EST [facility] Blood Venous blood specimen / Unknown Venipuncture / Unknown 01/03/2025 2:54 PM EST 01/03/2025 3:01 PM EST [facility] - 01/03/2025 3:09 PM EST Therapeutic decision making should be based on absolute values, rather than percentages. us Satnam Beckford MD LAB BLOOD ORDERABLES Final Result [facility] [address] [place] [address] * (ABNORMAL) TEG Global Hemostasis with Lysis (01/03/2025 2:54 PM EST) R, Lysis 8.2 4.6 - 9.1 min 01/03/2025 4:03 PM EST [facility] MA, Rapid, Lysis 40.1(L) 52.0 - 70.0 mm 01/03/2025 4:03 PM EST [facility] MA, Fibrinogen, Lysis 8.8(L) 15.0 - 32.0 mm 01/03/2025 4:03 PM EST [facility] LY30 0.0 0.0 - 2.6 % 01/03/2025 4:03 PM EST [facility] Blood Venous blood specimen / Unknown Venipuncture / Unknown 01/03/2025 2:54 PM EST 01/03/2025 3:01 PM EST us Josafat Rivera MD LAB BLOOD ORDERABLES Final Res ult [facility] [address] [place] [address] * (ABNORMAL) Fibrinogen (01/03/2025 2:54 PM EST) Pathologist [facility] Fibrinogen, Quantitative (Clottable) 134(L) 208 - 459 mg/dL LAB COAGULATION METHOD 01/03/2025 3:52 PM EST [facility] Blood Venous blood specimen / Unknown Venipuncture / Unknown 01/03/2025 2:54 PM EST 01/03/2025 3:01 PM EST us Josafat Rivera MD LAB BLOOD ORDERABLES Final Res ult [facility] [address] [place] [id number] * (ABNORMAL) APTT (01/03/2025 2:54 PM EST) aPTT 48(H) 25 - 35 sec LAB COAGULATION METHOD 01/03/2025 3:52 PM EST [facility] Blood Venous blood specimen / Unknown Venipuncture / Unknown 01/03/2025 2:54 PM EST 01/03/2025 3:01 PM EST Josafat Rivera MD LAB BLOOD ORDERABLES Final Res ult Performing Organization Address [facility] [address]/[facility] Co de Phone Number [facility] [address] [place] [address] * (ABNORMAL) Protime-INR (01/03/2025 2:54 PM EST) Prothrombin Time 25.3(H) 12.0 - 14.3 sec LAB COAGULATION METHOD 01/03/2025 3:52 PM EST [facility] INR 2.3(H) 0.9 - 1.1 LAB COAGULATION METHOD 01/03/2025 3:52 PM EST [facility] Blood Venous blood specimen / Unknown Venipuncture / Unknown 01/03/2025 2:54 PM EST 01/03/2025 3:01 PM EST Narrative [facility] - 01/03/2025 3:52 PM EST OPTIMAL INR RANGES FOR PATIENT ON ORAL ANTICOAGULANT THERAPY Prevention of venous thromboembolism INR 2.0 to 3.0 In patients with heart disease: Atrial fibrillation INR 2.0 to 3.0 Valvular heart disease INR 2.0 to 3.0 Tissue heart valves INR 2.0 to 3.0 Mechanical prosthetic valves INR 2.5 to 3.5 Prevention of recurrent GA INR 2.5 to 3.5 us Josafat Rivera MD LAB BLOOD ORDERABLES Final Res ult Performing Organization Address [facility] [address]/[facility] Co de Phone Number [facility] [address] [place] [address] * (ABNORMAL) POCT arterial blood gas gem (01/03/2025 2:13 PM EST) pH, Arterial 7.34(L) 7.35 - 7.45 01/03/2025 2:14 PM EST [facility] pCO2, Arterial 35 32 - 45 mm Hg 01/03/2025 2:14 PM EST [facility] pO2, Arterial 159(H) 83 - 108 mm Hg 01/03/2025 2:14 PM [facility] SO2, Arterial 99(H) 94 - 98 % 01/03/2025 2:14 PM [facility] Base Excess, Arterial -6.3(L) -2 - 3 mmol/L 01/03/2025 2:14 PM [facility] HCO3, Arterial 18.9(L) 22 - 26 mmol/L 01/03/2025 2:14 PM [facility] Total Hemoglobin, Arterial, Whole Blood 8.1(L) 13.7 - 17.5 g/dL 01/03/2025 2:14 PM [facility] Hematocrit, Arterial 24.0(L) 40 - 51.0 % 01/03/2025 2:14 PM [facility] Sodium, Arterial 139 136 - 145 mmol/L 01/03/2025 2:14 PM [facility] Potassium, Arterial 4.8 3.6 - 4.9 mmol/L 01/03/2025 2:14 PM [facility] Chloride, Whole Blood 112(H) 97 - 107 mmol/L 01/03/2025 2:14 PM [facility] Glucose, Arterial 165(H) 74 - 99 mg/dL 01/03/2025 2:14 PM [facility] Ionized Calcium, Arterial 5.4(H) 4.6 - 5.1 mg/dL 01/03/2025 2:14 PM [facility] Lactate, Arterial 1.5 0.5 - 1.6 mmol/L 01/03/2025 2:14 PM [facility] Body Temperature 37.0 Celsius 01/03/2025 2:14 PM [facility] pH, Temp Corrected, Arterial 7.34(L) 7.35 - 7.45 01/03/2025 2:14 PM [facility] pCO2, Temp Corrected, Arterial 35 32 - 45 mm Hg 01/03/2025 2:14 PM [facility] pO2, Temp Corrected, Arterial 159(H) 83 - 108 mm Hg 01/03/2025 2:14 PM [facility] Office Sweeper ID Ronnie Jackson 01/03/2025 2:14 PM [facility] Blood Whole blood specimen / Unknown 01/03/2025 2:13 PM EST 01/03/2025 2:14 PM EST us Satnam Beckford MD LAB POINT OF CARE T EST DOCKED DEVICE UNSOLICITED RESULTS Final Result [facility] [address] [place] [address] * (ABNORMAL) POCT arterial blood gas gem (01/03/2025 1:38 PM EST) pH, Arterial 7.34(L) 7.35 - 7.45 01/03/2025 1:40 PM EST [facility] pCO2, Arterial 36 32 - 45 mm Hg 01/03/2025 1:40 PM EST [facility] pO2, Arterial 157(H) 83 - 108 mm Hg 01/03/2025 1:40 PM EST [facility] SO2, Arterial 99(H) 94 - 98 % 01/03/2025 1:40 PM EST [facility] Base Excess, Arterial -5.8(L) -2 - 3 mmol/L 01/03/2025 1:40 PM EST [facility] HCO3, Arterial 19.4(L) 22 - 26 mmol/L 01/03/2025 1:40 PM EST [facility] Total Hemoglobin, Arterial, Whole Blood 8.5(L) 13.7 - 17.5 g/dL 01/03/2025 1:40 PM EST [facility] Hematocrit, Arterial 26.0(L) 40 - 51.0 % 01/03/2025 1:40 PM EST [facility] Sodium, Arterial 137 136 - 145 mmol/L 01/03/2025 1:40 PM EST [facility] Potassium, Arterial 5.1(H) 3.6 - 4.9 mmol/L 01/03/2025 1:40 PM EST [facility] Chloride, Whole Blood 112(H) 97 - 107 mmol/L 01/03/2025 1:40 PM EST [facility] Glucose, Arterial 143(H) 74 - 99 mg/dL 01/03/2025 1:40 PM EST [facility] Ionized Calcium, Arterial 5.4(H) 4.6 - 5.1 mg/dL 01/03/2025 1:40 PM EST [facility] Lactate, Arterial 1.6 0.5 - 1.6 mmol/L 01/03/2025 1:40 PM EST [facility] Body Temperature 37.0 Celsius 01/03/2025 1:40 PM EST [facility] pH, Temp Corrected, Arterial 7.34(L) 7.35 - 7.45 01/03/2025 1:40 PM EST [facility] pCO2, Temp Corrected, Arterial 36 32 - 45 mm Hg 01/03/2025 1:40 PM EST [facility] pO2, Temp Corrected, Arterial 157(H) 83 - 108 mm Hg 01/03/2025 1:40 PM EST [facility] Office Sweeper ID Ronnie Jackson 01/03/2025 1:40 PM EST [facility] Blood Whole blood specimen / Unknown 01/03/2025 1:38 PM EST 01/03/2025 1:40 PM EST Satnam Beckford MD LAB POINT OF CARE T EST DOCKED DEVICE UNSOLICITED RESULTS Final Result Performing Organization Address City/State/[facility] Phone Number [facility] [address] [place] [address] * Transfuse RBC (01/03/2025 12:59 PM EST) Josafat Rivera MD BLOOD TRANSFUSION ORDERABLES F inal Result * (ABNORMAL) POCT arterial blood gas gem (01/03/2025 12:54 PM EST) pH, Arterial 7.33(L) 7.35 - 7.45 01/03/2025 12:56 PM EST [facility] pCO2, Arterial 38 32 - 45 mm Hg 01/03/2025 12:56 PM EST [facility] pO2, Arterial 182(H) 83 - 108 mm Hg 01/03/2025 12:56 PM EST [facility] SO2, Arterial 99(H) 94 - 98 % 01/03/2025 12:56 PM EST [facility] Base Excess, Arterial -5.5(L) -2 - 3 mmol/L 01/03/2025 12:56 PM EST [facility] HCO3, Arterial 20.0(L) 22 - 26 mmol/L 01/03/2025 12:56 PM EST [facility] Total Hemoglobin, Arterial, Whole Blood 7.8(L) 13.7 - 17.5 g/dL 01/03/2025 12:56 PM EST [facility] Hematocrit, Arterial 23.0(L) 40 - 51.0 % 01/03/2025 12:56 PM EST [facility] Sodium, Arterial 138 136 - 145 mmol/L 01/03/2025 12:56 PM EST [facility] Potassium, Arterial 5.0(H) 3.6 - 4.9 mmol/L 01/03/2025 12:56 PM EST [facility] Chloride, Whole Blood 114(H) 97 - 107 mmol/L 01/03/2025 12:56 PM EST [facility] Glucose, Arterial 139(H) 74 - 99 mg/dL 01/03/2025 12:56 PM EST [facility] Ionized Calcium, Arterial 5.4(H) 4.6 - 5.1 mg/dL 01/03/2025 12:56 PM EST [facility] Lactate, Arterial 1.3 0.5 - 1.6 mmol/L 01/03/2025 12:56 PM EST [facility] Body Temperature 37.0 Celsius 01/03/2025 12:56 PM EST [facility] pH, Temp Corrected, Arterial 7.33(L) 7.35 - 7.45 01/03/2025 12:56 PM EST [facility] pCO2, Temp Corrected, Arterial 38 32 - 45 mm Hg 01/03/2025 12:56 PM EST [facility] pO2, Temp Corrected, Arterial 182(H) 83 - 108 mm Hg 01/03/2025 12:56 PM EST [facility] Office Sweeper ID Ronnie Jackson 01/03/2025 12:56 PM EST [facility] Blood Whole blood specimen / Unknown 01/03/2025 12:54 PM EST 01/03/2025 12:56 PM EST us Satnam Beckford MD LAB POINT OF CARE T EST DOCKED DEVICE UNSOLICITED RESULTS Final Result [facility] [address] [place] [address] * Transfuse fresh frozen plasma (01/03/2025 12:25 PM EST) us Josafat Rivera MD BLOOD TRANSFUSION ORDERABLES F inal Result * Transfuse platelets (01/03/2025 11:59 AM EST) us Josafat Rivera MD BLOOD [...] ORDERABLES F inal Result BLOOD BANK [address] [place] [address], * Prepare Leukocyte Reduced Platelets: 1 Units (01/03/2025 11:49 AM EST) Product Code [id number] CH BLOO D BANK Dispense Status Transfused BLOOD BANK Blood Expiration Date [id number] BLOOD BANK Unit Number [id number] CH B LOOD BANK Product Blood Type 6200 BLOOD BANK Blood Type A+ BLOOD BANK Blood Venous blood specimen / Unknown Josafat Rivera MD BLOOD BANK PRODUCT ORDERABLES Final Result Performing Organization Address [facility] [address]/[facility] Co de Phone Number BLOOD BANK [address] * (ABNORMAL) TEG Global Hemostasis with Lysis (01/03/2025 11:46 AM EST) R, Lysis 9.9(H) 4.6 - 9.1 min 01/03/2025 12:55 PM EST [facility] MA, Rapid, Lysis <40.0(L) 52.0 - 70.0 mm 01/03/2025 12:55 PM EST [facility] MA, Fibrinogen, Lysis 8.4(L) 15.0 - 32.0 mm 01/03/2025 12:55 PM EST [facility] LY30 0.0 0.0 - 2.6 % 01/03/2025 12:55 PM EST [facility] Blood Arterial blood specimen / Unknown 01/03/2025 11:46 AM EST 01/03/2025 11:52 AM EST Comment:Pre-op diagnosis: Decompensation of cirrhosis of liver (CMS/HCC) [K72.90, K74.60] Josafat Rivera MD LAB BLOOD ORDERABLES Final Res ult Performing Organization Address City/[facility] [address]/ZIP Co de Phone Number [facility] [address] [place] [address] * (ABNORMAL) APTT (01/03/2025 11:46 AM EST) aPTT 59(H) 25 - 35 sec LAB COAGULATION METHOD 01/03/2025 12:20 PM EST [facility] Blood Arterial blood specimen / Unknown 01/03/2025 11:46 AM EST 01/03/2025 11:51 AM EST Comment:Pre-op diagnosis: Decompensation of cirrhosis of liver (CMS/HCC) [K72.90, K74.60] Josafat Rivera MD LAB BLOOD ORDERABLES Final Res ult Performing Organization Address [facility] [address]/ZIP Co de Phone Number [facility] [address] [place] [address] * (ABNORMAL) Prothrombin Time/INR (01/03/2025 11:46 AM EST) Prothrombin Time 25.6(H) 12.0 - 14.3 sec LAB COAGULATION METHOD 01/03/2025 12:20 PM EST [facility] INR 2.3(H) 0.9 - 1.1 LAB COAGULATION METHOD 01/03/2025 12:20 PM EST [facility] Blood Arterial blood specimen / Unknown 01/03/2025 11:46 AM EST 01/03/2025 11:51 AM EST Comment:Pre-op diagnosis: Decompensation of cirrhosis of liver (CMS/HCC) [K72.90, K74.60] Narrative [facility] - 01/03/2025 12:20 PM EST OPTIMAL INR RANGES FOR PATIENT ON ORAL ANTICOAGULANT THERAPY Prevention of venous thromboembolism INR 2.0 to 3.0 In patients with heart disease: Atrial fibrillation INR 2.0 to 3.0 Valvular heart disease INR 2.0 to 3.0 Tissue heart valves INR 2.0 to 3.0 Mechanical prosthetic valves INR 2.5 to 3.5 Prevention of recurrent GA INR 2.5 to 3.5 us Josafat iRvera MD LAB BLOOD ORDERABLES Final Res ult Performing Organization Address City/[facility] [address]/ZIP Co de Phone Number [facility] [address] [place] [address] * (ABNORMAL) Fibrinogen, Quantitative (Clottable) (01/03/2025 11:46 AM EST) Fibrinogen, Quantitative (Clottable) 136(L) 208 - 459 mg/dL LAB COAGULATION METHOD 01/03/2025 12:20 PM EST [facility] Blood Arterial blood specimen / Unknown 01/03/2025 11:46 AM EST 01/03/2025 11:51 AM EST Comment:Pre-op diagnosis: Decompensation of cirrhosis of liver (CMS/HCC) [K72.90, K74.60] Josafat Rivera MD LAB BLOOD ORDERABLES Final Res ult Performing Organization Address [facility] [address]/[facility] Co de Phone Number [facility] [address] [place] [address] * (ABNORMAL) Platelet Count, Blood (01/03/2025 11:46 AM EST) Platelet Count 52(L) 155 - 369 10*3/uL LAB HEMATOLOGY METHOD 01/03/2025 11:59 AM EST [facility] Blood Arterial blood specimen / Unknown 01/03/2025 11:46 AM EST 01/03/2025 11:51 AM EST Comment:Pre-op diagnosis: Decompensation of cirrhosis of liver (CMS/HCC) [K72.90, K74.60] Josafat Rivera MD LAB BLOOD ORDERABLES Final Res ult Performing Organization Address [facility] [address]/[facility] Co de Phone Number [facility] [address] [place] [address] * (ABNORMAL) POCT arterial blood gas gem (01/03/2025 11:42 AM EST) pH, Arterial 7.28(L) 7.35 - 7.45 01/03/2025 11:43 AM EST [facility] pCO2, Arterial 43 32 - 45 mm Hg 01/03/2025 11:43 AM EST [facility] pO2, Arterial 207(H) 83 - 108 mm Hg 01/03/2025 11:43 AM EST [facility] SO2, Arterial 99(H) 94 - 98 % 01/03/2025 11:43 AM EST [facility] Base Excess, Arterial -6.2(L) -2 - 3 mmol/L 01/03/2025 11:43 AM EST [facility] HCO3, Arterial 20.2(L) 22 - 26 mmol/L 01/03/2025 11:43 AM EST [facility] Total Hemoglobin, Arterial, Whole Blood 8.5(L) 13.7 - 17.5 g/dL 01/03/2025 11:43 AM EST [facility] Hematocrit, Arterial 26.0(L) 40 - 51.0 % 01/03/2025 11:43 AM EST [facility] Sodium, Arterial 139 136 - 145 mmol/L 01/03/2025 11:43 AM EST [facility] Potassium, Arterial 4.7 3.6 - 4.9 mmol/L 01/03/2025 11:43 AM EST [facility] Chloride, Whole Blood 109(H) 97 - 107 mmol/L 01/03/2025 11:43 AM EST [facility] Glucose, Arterial 166(H) 74 - 99 mg/dL 01/03/2025 11:43 AM EST [facility] Ionized Calcium, Arterial 5.7(H) 4.6 - 5.1 mg/dL 01/03/2025 11:43 AM EST [facility] Lactate, Arterial 1.7(H) 0.5 - 1.6 mmol/L 01/03/2025 11:43 AM EST [facility] Body Temperature 37.0 Celsius 01/03/2025 11:43 AM EST [facility] pH, Temp Corrected, Arterial 7.28(L) 7.35 - 7.45 01/03/2025 11:43 AM EST [facility] pCO2, Temp Corrected, Arterial 43 32 - 45 mm Hg 01/03/2025 11:43 AM EST [facility] pO2, Temp Corrected, Arterial 207(H) 83 - 108 mm Hg 01/03/2025 11:43 AM EST [facility] Office Sweeper ID Ronnie Jackson 01/03/2025 11:43 AM EST [facility] Blood Whole blood specimen / Unknown 01/03/2025 11:42 AM EST 01/03/2025 11:43 AM EST us Satnam Beckford MD LAB POINT OF CARE T EST DOCKED DEVICE UNSOLICITED RESULTS Final Result Performing Organization Address City/State/[facility] Co de Phone Number [facility] [address] [place] [address] * Transfuse RBC (01/03/2025 11:30 AM EST) us Josafat Rivera MD BLOOD TRANSFUSION ORDERABLES F inal Result * Transfuse fresh frozen plasma (01/03/2025 11:28 AM EST) us Josafat Rivera MD BLOOD TRANSFUSION ORDERABLES F inal Result * (ABNORMAL) POCT arterial blood gas gem (01/03/2025 11:11 AM EST) pH, Arterial 7.28(L) 7.35 - 7.45 01/03/2025 11:12 AM [facility] pCO2, Arterial 40 32 - 45 mm Hg 01/03/2025 11:12 AM [facility] pO2, Arterial 292(H) 83 - 108 mm Hg 01/03/2025 11:12 AM [facility] SO2, Arterial 100(H) 94 - 98 % 01/03/2025 11:12 AM [facility] Base Excess, Arterial -7.4(L) -2 - 3 mmol/L 01/03/2025 11:12 AM [facility] HCO3, Arterial 18.8(L) 22 - 26 mmol/L 01/03/2025 11:12 AM [facility] Total Hemoglobin, Arterial, Whole Blood 8.0(L) 13.7 - 17.5 g/dL 01/03/2025 11:12 AM [facility] Hematocrit, Arterial 24.0(L) 40 - 51.0 % 01/03/2025 11:12 AM [facility] Sodium, Arterial 138 136 - 145 mmol/L 01/03/2025 11:12 AM [facility] Potassium, Arterial 4.3 3.6 - 4.9 mmol/L 01/03/2025 11:12 AM [facility] Chloride, Whole Blood 110(H) 97 - 107 mmol/L 01/03/2025 11:12 AM [facility] Glucose, Arterial 213(H) 74 - 99 mg/dL 01/03/2025 11:12 AM [facility] Ionized Calcium, Arterial 5.4(H) 4.6 - 5.1 mg/dL 01/03/2025 11:12 AM [facility] Lactate, Arterial 1.8(H) 0.5 - 1.6 mmol/L 01/03/2025 11:12 AM [facility] Body Temperature 37.0 Celsius 01/03/2025 11:12 AM [facility] pH, Temp Corrected, Arterial 7.28(L) 7.35 - 7.45 01/03/2025 11:12 AM [facility] pCO2, Temp Corrected, Arterial 40 32 - 45 mm Hg 01/03/2025 11:12 AM EST [facility] pO2, Temp Corrected, Arterial 292(H) 83 - 108 mm Hg 01/03/2025 11:12 AM EST [facility] Office Sweeper ID Ronnie Jackson 01/03/2025 11:12 AM EST [facility] Blood Whole blood specimen / Unknown 01/03/2025 11:11 AM EST 01/03/2025 11:12 AM EST us Satnam Beckford MD LAB POINT OF CARE T EST DOCKED DEVICE UNSOLICITED RESULTS Final Result Performing Organization Address City/State/[facility] Co de Phone Number [facility] [address] [place] [address] * Transfuse RBC (01/03/2025 11:00 AM EST) Josafat Rivera MD BLOOD TRANSFUSION ORDERABLES F inal Result * (ABNORMAL) POCT arterial blood gas gem (01/03/2025 10:58 AM EST) pH, Arterial 7.36 7.35 - 7.45 01/03/2025 10:59 AM EST [facility] pCO2, Arterial 34 32 - 45 mm Hg 01/03/2025 10:59 AM EST [facility] pO2, Arterial 330(H) 83 - 108 mm Hg 01/03/2025 10:59 AM EST [facility] SO2, Arterial 100(H) 94 - 98 % 01/03/2025 10:59 AM EST [facility] Base Excess, Arterial -5.7(L) -2 - 3 mmol/L 01/03/2025 10:59 AM EST [facility] HCO3, Arterial 19.2(L) 22 - 26 mmol/L 01/03/2025 10:59 AM EST [facility] Total Hemoglobin, Arterial, Whole Blood 8.0(L) 13.7 - 17.5 g/dL 01/03/2025 10:59 AM EST [facility] Hematocrit, Arterial 24.0(L) 40 - 51.0 % 01/03/2025 10:59 AM EST [facility] Sodium, Arterial 138 136 - 145 mmol/L 01/03/2025 10:59 AM EST [facility] Potassium, Arterial 4.5 3.6 - 4.9 mmol/L 01/03/2025 10:59 AM EST [facility] Chloride, Whole Blood 111(H) 97 - 107 mmol/L 01/03/2025 10:59 AM EST [facility] Glucose, Arterial 111(H) 74 - 99 mg/dL 01/03/2025 10:59 AM EST [facility] Ionized Calcium, Arterial 5.3(H) 4.6 - 5.1 mg/dL 01/03/2025 10:59 AM EST [facility] Lactate, Arterial 1.3 0.5 - 1.6 mmol/L 01/03/2025 10:59 AM EST [facility] Body Temperature 37.0 Celsius 01/03/2025 10:59 AM EST [facility] pH, Temp Corrected, Arterial 7.36 7.35 - 7.45 01/03/2025 10:59 AM EST [facility] pCO2, Temp Corrected, Arterial 34 32 - 45 mm Hg 01/03/2025 10:59 AM EST [facility] pO2, Temp Corrected, Arterial 330(H) 83 - 108 mm Hg 01/03/2025 10:59 AM EST [facility] Office Sweeper ID Ronnie Jackson 01/03/2025 10:59 AM EST [facility] Blood Whole blood specimen / Unknown 01/03/2025 10:58 AM EST 01/03/2025 10:59 AM EST Satnam Beckford MD LAB POINT OF CARE T EST DOCKED DEVICE UNSOLICITED RESULTS Final Result [facility] [address] [place], [place] [id number] * (ABNORMAL) TEG Global Hemostasis with Lysis (01/03/2025 10:26 AM EST) R, Lysis 5.1 4.6 - 9.1 min 01/03/2025 11:30 AM EST [facility] MA, Rapid, Lysis <40.0(L) 52.0 - 70.0 mm 01/03/2025 11:30 AM EST [facility] MA, Fibrinogen, Lysis 9.4(L) 15.0 - 32.0 mm 01/03/2025 11:30 AM EST [facility] LY30 0.1 0.0 - 2.6 % 01/03/2025 11:30 AM EST [facility] Blood Arterial blood specimen / Unknown 01/03/2025 10:26 AM EST 01/03/2025 10:35 AM EST Comment:Pre-op diagnosis: Decompensation of cirrhosis of liver (CMS/HCC) [K72.90, K74.60] Josafat Rivera MD LAB BLOOD ORDERABLES Final Res ult Performing Organization Address City/[facility] [address]/ZIP Co de Phone Number [facility] [address] [place] [address] * (ABNORMAL) APTT (01/03/2025 10:26 AM EST) aPTT 46(H) 25 - 35 sec LAB COAGULATION METHOD 01/03/2025 11:06 AM EST [facility] Blood Arterial blood specimen / Unknown 01/03/2025 10:26 AM EST 01/03/2025 10:33 AM EST Comment:Pre-op diagnosis: Decompensation of cirrhosis of liver (CMS/HCC) [K72.90, K74.60] us Josafat Rivera MD LAB BLOOD ORDERABLES Final Res ult Performing Organization Address City/[facility] [address]/ZIP Co de Phone Number [facility] [address] [place] [address] * (ABNORMAL) Prothrombin Time/INR (01/03/2025 10:26 AM EST) Prothrombin Time 23.6(H) 12.0 - 14.3 sec LAB COAGULATION METHOD 01/03/2025 11:06 AM EST [facility] INR 2.1(H) 0.9 - 1.1 LAB COAGULATION METHOD 01/03/2025 11:06 AM EST [facility] Blood Arterial blood specimen / Unknown 01/03/2025 10:26 AM EST 01/03/2025 10:33 AM EST Comment:Pre-op diagnosis: Decompensation of cirrhosis of liver (CMS/HCC) [K72.90, K74.60] Narrative [facility] - 01/03/2025 11:06 AM EST OPTIMAL INR RANGES FOR PATIENT ON ORAL ANTICOAGULANT THERAPY Prevention of venous thromboembolism INR 2.0 to 3.0 In patients with heart disease: Atrial fibrillation INR 2.0 to 3.0 Valvular heart disease INR 2.0 to 3.0 Tissue heart valves INR 2.0 to 3.0 Mechanical prosthetic valves INR 2.5 to 3.5 Prevention of recurrent GA INR 2.5 to 3.5 Josafat Rivera MD LAB BLOOD ORDERABLES Final Res ult Performing Organization Address City/[facility] [address]/ZIP Co de Phone Number [facility] [address] [place] [address] * (ABNORMAL) Fibrinogen, Quantitative (Clottable) (01/03/2025 10:26 AM EST) Fibrinogen, Quantitative (Clottable) 147(L) 208 - 459 mg/dL LAB COAGULATION METHOD 01/03/2025 11:06 AM EST [facility] Blood Arterial blood specimen / Unknown 01/03/2025 10:26 AM EST 01/03/2025 10:33 AM EST Comment:Pre-op diagnosis: Decompensation of cirrhosis of liver (CMS/HCC) [K72.90, K74.60] Josafat Rivera MD LAB BLOOD ORDERABLES Final Res ult Performing Organization Address City/[facility] [address]/ZIP Co de Phone Number [facility] [address] [place] [address] * (ABNORMAL) Platelet Count, Blood (01/03/2025 10:26 AM EST) Platelet Count 57(L) 155 - 369 10*3/uL LAB HEMATOLOGY METHOD 01/03/2025 10:40 AM EST [facility] Blood Arterial blood specimen / Unknown 01/03/2025 10:26 AM EST 01/03/2025 10:33 AM EST Comment:Pre-op diagnosis: Decompensation of cirrhosis of liver (CMS/HCC) [K72.90, K74.60] us Josafat Rivera MD LAB BLOOD ORDERABLES Final Res ult [facility] [address] [place] [address] * Surgical Pathology Exam (01/03/2025 10:22 AM EST) Case Report Surgical Pathology Case: [id number] Authorizing Provider: Josafat Rivera MD Collected: 01/03/2025 1022 Ordering Location: [facility] Received: 01/05/2025 0755 Pathologist: Ashley De MD Specimen: Liver, inaja liver 01/07/2025 10:53 AM EST [facility] Final Diagnosis LIVER AND GALLBLADDER, BARROW, TRANSPLANTATION: - CIRRHOSIS (HISTORY OF ALCOHOLIC CIRRHOSIS) (SEE COMMENT). - NO PATHOLOGIC ABNORMALITIES, GALLBLADDER. 01/07/2025 10:53 AM EST [facility] at 1053 EST Comment Sections show extensive [...] dysplasia or malignancy. 01/07/2025 10:53 AM EST [facility] Clinical Information Decompensation of cirrhosis of liver (CMS/HCC) [K72.90, K74.60] 01/07/2025 10:53 AM EST [facility] Gross Description A. BARROW LIVER The specimen is received fresh and [...] cm. No masses or polyps are identified. Agriculture Teacher sections are submitted as follows: A1: Vascular margins A2: Segment two A3: Segment three A4: Seven six A5: Segment eight A6: Gallbladder Cold Time: 0 CRISTAL Olsen ([facility]) 01/07/2025 10:53 AM EST [facility] Note: A resident was involved in the service. I attest I examined the relevant preparations for the specimens and confirmed the diagnosis or interpretation. 01/07/2025 10:53 AM EST [facility] Tissue Liver structure / Unknown 01/03/2025 10:22 AM EST 01/05/2025 7:55 AM EST Comment:Pre-op diagnosis: Decompensation of cirrhosis of liver (CMS/HCC) [K72.90, K74.60] Result [facility] Josafat Rivera MD LAB PATHOLOGY ORDERABLES Final Result [facility] [address] [place] [address] * Transfuse fresh frozen plasma (01/03/2025 10:21 AM EST) Josafat Rivera MD BLOOD TRANSFUSION ORDERABLES F inal Result * Transfuse RBC (01/03/2025 10:18 AM EST) Josafat Rivera MD BLOOD TRANSFUSION ORDERABLES F inal Result * (ABNORMAL) POCT arterial blood gas gem (01/03/2025 10:15 AM EST) pH, Arterial 7.33(L) 7.35 - 7.45 01/03/2025 10:17 AM EST [employer] LAB pCO2, Arterial 37 32 - 45 mm Hg 01/03/2025 10:17 AM EST [facility] pO2, Arterial 204(H) 83 - 108 mm Hg 01/03/2025 10:17 AM [facility] SO2, Arterial 99(H) 94 - 98 % 01/03/2025 10:17 AM [facility] Base Excess, Arterial -5.9(L) -2 - 3 mmol/L 01/03/2025 10:17 AM [facility] HCO3, Arterial 19.5(L) 22 - 26 mmol/L 01/03/2025 10:17 AM [facility] Total Hemoglobin, Arterial, Whole Blood 7.5(L) 13.7 - 17.5 g/dL 01/03/2025 10:17 AM [facility] Hematocrit, Arterial 23.0(L) 40 - 51.0 % 01/03/2025 10:17 AM [facility] Sodium, Arterial 138 136 - 145 mmol/L 01/03/2025 10:17 AM [facility] Potassium, Arterial 4.3 3.6 - 4.9 mmol/L 01/03/2025 10:17 AM [facility] Glucose, Arterial 129(H) 74 - 99 mg/dL 01/03/2025 10:17 AM [facility] Ionized Calcium, Arterial 3.9(L) 4.6 - 5.1 mg/dL 01/03/2025 10:17 AM [facility] Lactate, Arterial 1.7(H) 0.5 - 1.6 mmol/L 01/03/2025 10:17 AM [facility] Body Temperature 37.0 Celsius 01/03/2025 10:17 AM [facility] pH, Temp Corrected, Arterial 7.33(L) 7.35 - 7.45 01/03/2025 10:17 AM [facility] pCO2, Temp Corrected, Arterial 37 32 - 45 mm Hg 01/03/2025 10:17 AM [facility] pO2, Temp Corrected, Arterial 204(H) 83 - 108 mm Hg 01/03/2025 10:17 AM [facility] Office Sweeper ID Ronnie Jackson 01/03/2025 10:17 AM [facility] Blood Whole blood specimen / Unknown 01/03/2025 10:15 AM EST 01/03/2025 10:17 AM EST us Satnam Beckford MD LAB POINT OF CARE T EST DOCKED DEVICE UNSOLICITED RESULTS Final Result Performing Organization Address City/State/[facility] Co de Phone Number [facility] [address] [place] [address] * Prepare Fresh Frozen Plasma: 6 Units (01/03/2025 10:09 AM EST) Product Code [id number] [facility] BLOO D BANK Dispense Status Returned CH BLOOD BANK Blood Expiration Date [id number] BLOOD BANK Unit Number [id number] CH B LOOD BANK Product Blood Type 8400 CH BLOOD BANK Blood Type AB+ CH BLOOD BANK Product Code [id number] CH BLOO D BANK Dispense Status Transfused CH BLOOD BANK Blood Expiration Date BLOOD BANK Unit Number [id number] CH B LOOD BANK Product Blood Type 8400 CH BLOOD BANK Blood Type AB+ CH BLOOD BANK Product Code [id number] CH BLOO D BANK Dispense Status Returned CH BLOOD BANK Blood Expiration Date [id number] BLOOD BANK Unit Number [id number] CH B LOOD BANK Product Blood Type 6200 CH BLOOD BANK Blood Type A+ CH BLOOD BANK Product Code [id number] CH BLOO D BANK Dispense Status Transfused CH BLOOD BANK Blood Expiration Date [id number] BLOOD BANK Unit Number [id number] CH B LOOD BANK Product Blood Type 8400 CH BLOOD BANK Blood Type AB+ CH BLOOD BANK Product Code [id number] CH BLOO D BANK Dispense Status Returned BLOOD BANK Blood Expiration Date [id number] BLOOD BANK Unit Number [id number] CH B LOOD BANK Product Blood Type 6200 CH BLOOD BANK Blood Type A+ CH BLOOD BANK Product Code [id number] BLOO D BANK Dispense Status Returned CH BLOOD BANK Blood Expiration Date [id number] BLOOD BANK Unit Number [id number] CH B LOOD BANK Product Blood Type 2800 CH BLOOD BANK Blood Type AB- CH BLOOD BANK Blood Venous blood specimen / Unknown us Josafat Rivera MD BLOOD BANK PRODUCT ORDERABLES Edited Result - Final BLOOD BANK [address] [place] [address], * Transfuse fresh frozen plasma (01/03/2025 10:00 [...] 45 mm Hg 01/03/2025 9:37 AM EST [facility] pO2, Arterial 182(H) 83 - 108 mm Hg 01/03/2025 9:37 AM EST [facility] SO2, Arterial 100(H) 94 - 98 % 01/03/2025 9:37 AM EST [facility] Base Excess, Arterial -4.8(L) -2 - 3 mmol/L 01/03/2025 9:37 AM EST [facility] HCO3, Arterial 20.5(L) 22 - 26 mmol/L 01/03/2025 9:37 AM EST [facility] Total Hemoglobin, Arterial, Whole Blood 8.2(L) 13.7 - 17.5 g/dL 01/03/2025 9:37 AM EST [facility] Hematocrit, Arterial 25.0(L) 40 - 51.0 % 01/03/2025 9:37 AM EST [facility] Sodium, Arterial 138 136 - 145 mmol/L 01/03/2025 9:37 AM EST [facility] Potassium, Arterial 4.1 3.6 - 4.9 mmol/L 01/03/2025 9:37 AM EST [facility] Chloride, Whole Blood 109(H) 97 - 107 mmol/L 01/03/2025 9:37 AM EST [facility] Glucose, Arterial 107(H) 74 - 99 mg/dL 01/03/2025 9:37 AM EST [facility] Ionized Calcium, Arterial 4.6 4.6 - 5.1 mg/dL 01/03/2025 9:37 AM EST [facility] Lactate, Arterial 1.2 0.5 - 1.6 mmol/L 01/03/2025 9:37 AM EST [facility] Body Temperature 37.0 Celsius 01/03/2025 9:37 AM EST [facility] pH, Temp Corrected, Arterial 7.34(L) 7.35 - 7.45 01/03/2025 9:37 AM EST [facility] pCO2, Temp Corrected, Arterial 38 32 - 45 mm Hg 01/03/2025 9:37 AM EST [facility] pO2, Temp Corrected, Arterial 182(H) 83 - 108 mm Hg 01/03/2025 9:37 AM EST [facility] Office Sweeper ID Ronnie Jackson 01/03/2025 9:37 AM EST [facility] Blood Whole blood specimen / Unknown 01/03/2025 9:36 AM EST 01/03/2025 9:37 AM EST Satnam Beckford MD LAB POINT OF CARE T EST DOCKED DEVICE UNSOLICITED RESULTS Final Result Performing Organization Address City/State/[facility] Phone Number [facility] [address] [place], [place] [id number] * (ABNORMAL) POCT arterial blood gas gem (01/03/2025 9:03 AM EST) pH, Arterial 7.33(L) 7.35 - 7.45 01/03/2025 9:05 AM EST [facility] pCO2, Arterial 39 32 - 45 mm Hg 01/03/2025 9:05 AM EST [facility] pO2, Arterial 180(H) 83 - 108 mm Hg 01/03/2025 9:05 AM EST [facility] SO2, Arterial 99(H) 94 - 98 % 01/03/2025 9:05 AM [facility] Base Excess, Arterial -4.9(L) -2 - 3 mmol/L 01/03/2025 9:05 AM [facility] HCO3, Arterial 20.6(L) 22 - 26 mmol/L 01/03/2025 9:05 AM [facility] Total Hemoglobin, Arterial, Whole Blood 8.2(L) 13.7 - 17.5 g/dL 01/03/2025 9:05 AM [facility] Hematocrit, Arterial 25.0(L) 40 - 51.0 % 01/03/2025 9:05 AM [facility] Sodium, Arterial 138 136 - 145 mmol/L 01/03/2025 9:05 AM [facility] Potassium, Arterial 4.1 3.6 - 4.9 mmol/L 01/03/2025 9:05 AM [facility] Chloride, Whole Blood 108(H) 97 - 107 mmol/L 01/03/2025 9:05 AM [facility] Glucose, Arterial 109(H) 74 - 99 mg/dL 01/03/2025 9:05 AM [facility] Ionized Calcium, Arterial 4.7 4.6 - 5.1 mg/dL 01/03/2025 9:05 AM [facility] Lactate, Arterial 1.1 0.5 - 1.6 mmol/L 01/03/2025 9:05 AM [facility] Body Temperature 37.0 Celsius 01/03/2025 9:05 AM [facility] pH, Temp Corrected, Arterial 7.33(L) 7.35 - 7.45 01/03/2025 9:05 AM [facility] pCO2, Temp Corrected, Arterial 39 32 - 45 mm Hg 01/03/2025 9:05 AM [facility] pO2, Temp Corrected, Arterial 180(H) 83 - 108 mm Hg 01/03/2025 9:05 AM [facility] Office Sweeper ID Ronnie Jackson 01/03/2025 9:05 AM [facility] Blood Whole blood specimen / Unknown 01/03/2025 9:03 AM EST 01/03/2025 9:05 AM [facility] Satnam Beckford MD LAB POINT OF CARE T EST DOCKED DEVICE UNSOLICITED RESULTS Final Result [facility] [address] [place] [address] * Transfuse RBC (01/03/2025 8:39 AM EST) Josafat Rivera MD BLOOD TRANSFUSION ORDERABLES F inal Result * Transfuse fresh frozen plasma (01/03/2025 8:39 AM EST) Josafat Rivera MD BLOOD TRANSFUSION ORDERABLES F inal Result * (ABNORMAL) POCT arterial blood gas gem (01/03/2025 8:37 AM EST) pH, Arterial 7.35 7.35 - 7.45 01/03/2025 8:38 AM EST [facility] pCO2, Arterial 38 32 - 45 mm Hg 01/03/2025 8:38 AM EST [facility] pO2, Arterial 81(L) 83 - 108 mm Hg 01/03/2025 8:38 AM [facility] SO2, Arterial 97 94 - 98 % 01/03/2025 8:38 AM EST [facility] Base Excess, Arterial -4.2(L) -2 - 3 mmol/L 01/03/2025 8:38 AM [facility] HCO3, Arterial 21.0(L) 22 - 26 mmol/L 01/03/2025 8:38 AM EST [facility] Total Hemoglobin, Arterial, Whole Blood 7.5(L) 13.7 - 17.5 g/dL 01/03/2025 8:38 AM EST [facility] Hematocrit, Arterial 23.0(L) 40 - 51.0 % 01/03/2025 8:38 AM EST [facility] Sodium, Arterial 138 136 - 145 mmol/L 01/03/2025 8:38 AM EST [facility] Potassium, Arterial 3.9 3.6 - 4.9 mmol/L 01/03/2025 8:38 AM [facility] Chloride, Whole Blood 109(H) 97 - 107 mmol/L 01/03/2025 8:38 AM EST [facility] Glucose, Arterial 98 74 - 99 mg/dL 01/03/2025 8:38 AM [facility] Ionized Calcium, Arterial 4.2(L) 4.6 - 5.1 mg/dL 01/03/2025 8:38 AM EST [facility] Lactate, Arterial 0.9 0.5 - 1.6 mmol/L 01/03/2025 8:38 AM EST [facility] Body Temperature 37.0 Celsius 01/03/2025 8:38 AM EST [facility] pH, Temp Corrected, Arterial 7.35 7.35 - 7.45 01/03/2025 8:38 AM EST [facility] pCO2, Temp Corrected, Arterial 38 32 - 45 mm Hg 01/03/2025 8:38 AM EST [facility] pO2, Temp Corrected, Arterial 81(L) 83 - 108 mm Hg 01/03/2025 8:38 AM EST [facility] Office Sweeper ID Ronnie Jackson 01/03/2025 8:38 AM EST [facility] Blood Whole blood specimen / Unknown 01/03/2025 8:37 AM EST 01/03/2025 8:38 AM EST Satnam Beckford MD LAB POINT OF CARE T EST DOCKED DEVICE UNSOLICITED RESULTS Final Result Performing Organization Address City/State/[facility] Co de Phone Number [facility] [address] [place] [address] * Transfuse RBC (01/03/2025 8:07 AM EST) [...] - 175 Seconds 01/03/2025 8:42 AM EST [facility] Clot Stability To Lysis 98 92 - 100 % 01/03/2025 8:42 AM EST [facility] Comment:The Clot Stability t o Lysis [...] 01/03/2025 8:42 AM EST [facility] Office Sweeper ID [id number] 01/03/2025 8:42 AM EST [facility] Device ID [id number] 01/03/2025 8:42 AM EST [facility] Blood Venous blood specimen / Unknown 01/03/2025 8:01 AM EST 01/03/2025 8:42 AM EST Narrative [facility] - 01/03/2025 8:42 AM EST ProfileName= Satnam Beckford MD LAB POINT OF CARE T EST DOCKED DEVICE UNSOLICITED RESULTS Final Result Performing Organization Address City/State/[facility] Co de Phone Number [facility] [address] [place] [address] * (ABNORMAL) POCT arterial blood gas gem (01/03/2025 7:59 AM EST) pH, Arterial 7.33(L) 7.35 - 7.45 01/03/2025 8:01 AM EST [facility] pCO2, Arterial 43 32 - 45 mm Hg 01/03/2025 8:01 AM EST [facility] pO2, Arterial 95 83 - 108 mm Hg 01/03/2025 8:01 AM EST [facility] SO2, Arterial 98 94 - 98 % 01/03/2025 8:01 AM EST [facility] Base Excess, Arterial -3.0(L) -2 - 3 mmol/L 01/03/2025 8:01 AM EST [facility] HCO3, Arterial 22.7 22 - 26 mmol/L 01/03/2025 8:01 AM [facility] Total Hemoglobin, Arterial, Whole Blood 7.8(L) 13.7 - 17.5 g/dL 01/03/2025 8:01 AM [facility] Hematocrit, Arterial 23.0(L) 40 - 51.0 % 01/03/2025 8:01 AM [facility] Sodium, Arterial 138 136 - 145 mmol/L 01/03/2025 8:01 AM [facility] Potassium, Arterial 3.8 3.6 - 4.9 mmol/L 01/03/2025 8:01 AM [facility] Chloride, Whole Blood 108(H) 97 - 107 mmol/L 01/03/2025 8:01 AM [facility] Glucose, Arterial 110(H) 74 - 99 mg/dL 01/03/2025 8:01 AM [facility] Ionized Calcium, Arterial 4.8 4.6 - 5.1 mg/dL 01/03/2025 8:01 AM [facility] Lactate, Arterial 0.8 0.5 - 1.6 mmol/L 01/03/2025 8:01 AM [facility] Body Temperature 37.0 Celsius 01/03/2025 8:01 AM [facility] pH, Temp Corrected, Arterial 7.33(L) 7.35 - 7.45 01/03/2025 8:01 AM [facility] pCO2, Temp Corrected, Arterial 43 32 - 45 mm Hg 01/03/2025 8:01 AM [facility] pO2, Temp Corrected, Arterial 95 83 - 108 mm Hg 01/03/2025 8:01 AM [facility] Office Sweeper ID Josafat Rivera 01/03/2025 8:01 AM [facility] Blood Whole blood specimen / Unknown 01/03/2025 7:59 AM EST 01/03/2025 8:01 AM EST us Satnam Beckford MD LAB POINT OF CARE T EST DOCKED DEVICE UNSOLICITED RESULTS Final Result [facility] [address] [place] [address] * (ABNORMAL) TEG Global Hemostasis with Lysis (01/03/2025 7:53 AM EST) R, Lysis 8.2 4.6 - 9.1 min 01/03/2025 9:02 AM EST [facility] MA, Rapid, Lysis 42.7(L) 52.0 - 70.0 mm 01/03/2025 9:02 AM EST [facility] MA, Fibrinogen, Lysis 12.0(L) 15.0 - 32.0 mm 01/03/2025 9:02 AM EST [facility] LY30 0.4 0.0 - 2.6 % 01/03/2025 9:02 AM EST [facility] Blood Arterial blood specimen / Unknown 01/03/2025 7:53 AM EST 01/03/2025 8:05 AM EST Comment:Pre-op diagnosis: Decompensation of cirrhosis of liver (CMS/HCC) [K72.90, K74.60] us Josafat Rivera MD LAB BLOOD ORDERABLES Final Res ult Performing Organization Address City/[facility] [address]/[facility] Co de Phone Number [facility] [address] [place] [address] * (ABNORMAL) APTT (01/03/2025 7:53 AM EST) aPTT 62(H) 25 - 35 sec LAB COAGULATION METHOD 01/03/2025 8:37 AM EST [facility] Blood Arterial blood specimen / Unknown 01/03/2025 7:53 AM EST 01/03/2025 8:03 AM EST Comment:Pre-op diagnosis: Decompensation of cirrhosis of liver (CMS/HCC) [K72.90, K74.60] us Josafat Rivera MD LAB BLOOD ORDERABLES Final Res ult [facility] [address] [place] [address] * (ABNORMAL) Prothrombin Time/INR (01/03/2025 7:53 AM EST) Prothrombin Time 29.3(H) 12.0 - 14.3 sec LAB COAGULATION METHOD 01/03/2025 8:37 AM EST [facility] INR 2.8(H) 0.9 - 1.1 LAB COAGULATION METHOD 01/03/2025 8:37 AM EST [facility] Blood Arterial blood specimen / Unknown 01/03/2025 7:53 AM EST 01/03/2025 8:03 AM EST Comment:Pre-op diagnosis: Decompensation of cirrhosis of liver (CMS/HCC) [K72.90, K74.60] Narrative [facility] - 01/03/2025 8:37 AM EST OPTIMAL INR RANGES FOR PATIENT ON ORAL ANTICOAGULANT THERAPY Prevention of venous thromboembolism INR 2.0 to 3.0 In patients with heart disease: Atrial fibrillation INR 2.0 to 3.0 Valvular heart disease INR 2.0 to 3.0 Tissue heart valves INR 2.0 to 3.0 Mechanical prosthetic valves INR 2.5 to 3.5 Prevention of recurrent GA INR 2.5 to 3.5 Josafat Rivera MD LAB BLOOD ORDERABLES Final Res ult Performing Organization Address City/[facility] [address]/ZIP Co de Phone Number [facility] [address] [place] [address] * (ABNORMAL) Fibrinogen, Quantitative (Clottable) (01/03/2025 7:53 AM EST) Fibrinogen, Quantitative (Clottable) 148(L) 208 - 459 mg/dL LAB COAGULATION METHOD 01/03/2025 8:37 AM EST [facility] Blood Arterial blood specimen / Unknown 01/03/2025 7:53 AM EST 01/03/2025 8:03 AM EST Comment:Pre-op diagnosis: Decompensation of cirrhosis of liver (CMS/HCC) [K72.90, K74.60] Josafat Rivera MD LAB BLOOD ORDERABLES Final Res ult [facility] [address] [place] [address] * (ABNORMAL) CBC W/O Differential (01/03/2025 7:53 AM EST) WBC Count 3.60(L) 3.70 - 10.30 10*3/uL LAB HEMATOLOGY METHOD 01/03/2025 8:20 AM EST [facility] RBC Count 2.45(L) 4.60 - 6.10 10*6/uL LAB HEMATOLOGY METHOD 01/03/2025 8:20 AM EST [facility] HGB 7.8(L) 13.7 - 17.5 g/dL LAB HEMATOLOGY METHOD 01/03/2025 8:20 AM EST [facility] HCT 25.7(L) 40.0 - 51.0 % LAB HEMATOLOGY METHOD 01/03/2025 8:20 AM EST [facility] Platelet Count 69(L) 155 - 369 10*3/uL LAB HEMATOLOGY METHOD 01/03/2025 8:20 AM EST [facility] MCV 105(H) 79 - 98 fL LAB HEMATOLOGY METHOD 01/03/2025 8:20 AM EST [facility] MCH 31.8 26.0 - 32.0 pg LAB HEMATOLOGY METHOD 01/03/2025 8:20 AM EST [facility] MCHC 30.4(L) 30.7 - 35.5 g/dL LAB HEMATOLOGY METHOD 01/03/2025 8:20 AM EST [facility] RDW 20.3(H) 11.5 - 14.5 % LAB HEMATOLOGY METHOD 01/03/2025 8:20 AM EST [facility] MPV 10.3 8.8 - 12.5 fL LAB HEMATOLOGY METHOD 01/03/2025 8:20 AM EST [facility] nRBC 0.0 <=0.0 per 100 WBCs LAB HEMATOLOGY METHOD 01/03/2025 8:20 AM EST [facility] Blood Arterial blood specimen / Unknown 01/03/2025 7:53 AM EST 01/03/2025 8:03 AM EST Comment:Pre-op diagnosis: Decompensation of cirrhosis of liver (CMS/HCC) [K72.90, K74.60] us Josafat Rivera MD LAB BLOOD ORDERABLES Final Res ult [facility] [address] [place] [address] * (ABNORMAL) Comprehensive Metabolic Panel, Plasma (01/03/2025 7:53 AM EST) Glucose, Plasma 111(H) 74 - 99 mg/dL 01/03/2025 8:41 AM EST [facility] BUN, Plasma 14 7 - 21 mg/dL 01/03/2025 8:41 AM EST [facility] Creatinine, Plasma 0.73 0.70 - 1.20 mg/dL 01/03/2025 8:41 AM EST [facility] BUN/Creatinine Ratio 19 01/03/2025 8:41 AM EST [facility] Sodium, Plasma 137 136 - 145 mmol/L 01/03/2025 8:41 AM EST [facility] Potassium, Plasma 3.8 3.6 - 4.9 mmol/L 01/03/2025 8:41 AM EST [facility] Chloride, Plasma 109(H) 97 - 107 mmol/L 01/03/2025 8:41 AM EST [facility] CO2, Plasma 21(L) 22 - 29 mmol/L 01/03/2025 8:41 AM EST [facility] Anion Gap 7 6 - 16 mmol/L 01/03/2025 8:41 AM EST [facility] Total Calcium, Plasma 7.6(L) 8.9 - 10.2 mg/dL 01/03/2025 8:41 AM EST [facility] Total Protein 5.0(L) 6.3 - 7.9 g/dL 01/03/2025 8:41 AM EST [facility] Albumin, Plasma 2.5(L) 3.5 - 5.2 g/dL 01/03/2025 8:41 AM EST [facility] AST, Plasma 50 10 - 50 U/L 01/03/2025 8:41 AM EST [facility] ALT, Plasma 26 10 - 50 U/L 01/03/2025 8:41 AM EST [facility] Alkaline Phosphatase, Plasma 93 40 - 115 U/L 01/03/2025 8:41 AM EST [facility] Total Bilirubin, Plasma 11.7(H) 0.2 - 1.1 mg/dL 01/03/2025 8:41 AM EST [facility] eGFRcr 114.3 mL/min/1.7 3m*2 01/03/2025 8:41 AM EST [facility] Comment:Reported eGFRcr in m L/min/1.73m2 is based the CKD-EPI 2020 equation that does not use a race coefficient. Blood Arterial blood specimen / Unknown 01/03/2025 7:53 AM EST 01/03/2025 8:02 AM EST Comment:Pre-op diagnosis: Decompensation of cirrhosis of liver (CMS/HCC) [K72.90, K74.60] us Josafat Rivera MD LAB BLOOD ORDERABLES Final Res ult [facility] [address] [place] [address] * Prepare Fresh Frozen Plasma: 5 Units (01/03/2025 6:43 AM EST) Product Code D4745F65 BLOO D BANK Dispense Status Transfused CH BLOOD BANK Blood Expiration Date BLOOD BANK Unit Number [id number] CH B LOOD BANK Product Blood Type 6200 BLOOD BANK Blood Type A+ CH BLOOD BANK Product Code [id number] BLOO D BANK Dispense Status Transfused CH BLOOD BANK Blood Expiration Date BLOOD BANK Unit Number [id number] CH B LOOD BANK Product Blood Type 6200 BLOOD BANK Blood Type A+ CH BLOOD BANK Product Code [id number] BLOO D BANK Dispense Status Transfused CH BLOOD BANK Blood Expiration Date BLOOD BANK Unit Number [id number] CH B LOOD BANK Product Blood Type 6200 CH BLOOD BANK Blood Type A+ CH BLOOD BANK Product Code [id number] BLOO D BANK Dispense Status Transfused BLOOD BANK Blood Expiration Date BLOOD BANK Unit Number [id number] CH B LOOD BANK Product Blood Type 0600 BLOOD BANK Blood Type A- CH BLOOD BANK Product Code [id number] BLOO D BANK Dispense Status Transfused CH BLOOD BANK Blood Expiration Date [id number] BLOOD BANK Unit Number [id number] CH B LOOD BANK Product Blood Type 6200 BLOOD BANK Blood Type A+ BLOOD BANK Blood Venous blood specimen / Unknown Ronnie Jackson MD BLOOD BANK PRODUCT ORDERAB LES Final Result Performing Organization Address City/[facility] [address]/ZIP Co de Phone Number BLOOD BANK [address] [place] [address] * POCT glucose meter (01/03/2025 3:34 AM EST) Pathologist [facility] POCT Glucose 90 74 - 99 mg/dL [...] 01/03/2025 3:35 AM EST [facility] Office Sweeper ID Robi, Allison 01/04/20 3:35 AM EST [facility] Device ID [id number] 01/03/2025 3:35 AM EST [facility] Specimen Type POC Capillary 01/03/2025 3:35 AM EST [facility] Blood Capillary blood specimen / Unknown 01/03/2025 3:34 AM EST 01/03/2025 3:35 AM EST Satnam Beckford MD LAB POINT OF CARE T EST DOCKED DEVICE UNSOLICITED RESULTS Final Result [facility] [address] [place] [address] * (ABNORMAL) Protime-INR (01/03/2025 3:34 AM EST) Prothrombin Time 27.8(H) 12.0 - 14.3 sec LAB COAGULATION METHOD 01/03/2025 4:13 AM EST [facility] INR 2.6(H) 0.9 - 1.1 LAB COAGULATION METHOD 01/03/2025 4:13 AM EST [facility] Blood Venous blood specimen / Unknown Venipuncture / Unknown 01/03/2025 3:34 AM EST 01/03/2025 3:41 AM EST Narrative [facility] - 01/03/2025 4:13 AM EST OPTIMAL INR RANGES FOR PATIENT ON ORAL ANTICOAGULANT THERAPY Prevention of venous thromboembolism INR 2.0 to 3.0 In patients with heart disease: Atrial fibrillation INR 2.0 to 3.0 Valvular heart disease INR 2.0 to 3.0 Tissue heart valves INR 2.0 to 3.0 Mechanical prosthetic valves INR 2.5 to 3.5 Prevention of recurrent GA INR 2.5 to 3.5 Satnam Beckford MD LAB BLOOD ORDERABLES Final Result [facility] [address] [place] [address] * SARS CoV-2/COVID-19 by PCR - Rapid (01/02/2025 9:46 AM EST) Pathologist [facility] SARS CoV-2/COVID-1 9 RNA PCR Result Not Detected Not Detected 01/02/2025 11:10 AM EST [facility] Swab Nasopharyngeal structure / Unknown Non-blood Collection / Unknown 01/02/2025 9:46 AM EST 01/02/2025 10:06 AM EST Narrative [facility] - 01/02/2025 11:10 AM EST This [...] GENERAL ORDERABLES Final Result Performing Organization Address City/[facility] [address]/ZIP Co de Phone Number [facility] [address] [place] [address] * HIV 1 & 2 Antibody/Antigen Screen (01/02/2025 9:40 AM EST) Pathologist [facility] HIV 1 & 2 Antibody/Antigen Screen Non Reactive Non Reactive 01/02/2025 10:42 AM EST [facility] Comment:Screening for HIV 1 & 2 antibodies, and P24 antigen is NONREACTIVE. No confirmatory testing is required. Blood Venous blood specimen / Unknown Venipuncture / Unknown 01/02/2025 9:40 AM EST 01/02/2025 10:01 AM EST Satnam Beckford MD LAB BLOOD ORDERABLES Final Result Performing Organization Address City/[facility] [address]/[facility] Co de Phone Number [facility] [address] [place] [address] * Type and screen (01/02/2025 9:40 AM EST) Pathologist [facility] ABO/Rh A Negative 01/02/2025 10:02 AM EST BLOOD BANK Antibody Screen Negative 01/02/2025 10:02 AM EST BLOOD BANK Specimen Expiration 01/05/2025 23:59 01/02/2025 10:02 AM EST BLOOD BANK Blood Venous blood specimen / Unknown Venipuncture / Unknown 01/02/2025 9:40 AM EST 01/02/2025 10:02 AM EST Satnam Beckford MD LAB BLOOD BANK TEST ORDERAB LES Final Result Performing Organization Address City/[facility] [address]/ZIP Co de Phone Number BLOOD BANK [address] [place] [address], * Hepatitis C Virus (HCV) Quantitative PCR (01/02/2025 9:40 AM EST) [facility] Hepatitis C Virus (HCV) Quantitative Interpretation Not Detected Not Detected. 01/05/2025 4:19 PM EST [facility] Blood Venous blood specimen / Unknown Venipuncture / Unknown 01/02/2025 9:40 AM EST 01/02/2025 10:01 AM EST Narrative [facility] - 01/05/2025 4:19 PM EST The [...] BLOOD ORDERABLES Final Result Performing Organization Address [facility] [address]/[facility] Co de Phone Number [facility] [address] [place] [address] * Hepatitis C Antibody (01/02/2025 9:40 AM EST) Hepatitis C Antibody Negative Negative 01/02/2025 10:42 AM EST [facility] Blood Venous blood specimen / Unknown Venipuncture / Unknown 01/02/2025 9:40 AM EST 01/02/2025 10:01 AM EST Satnam Beckford MD LAB BLOOD ORDERABLES Final Result Performing Organization Address [facility] [address]/[facility] Co de Phone Number [facility] [address] [place] [address] * Hepatitis B Surface Antigen (01/02/2025 9:40 AM EST) Hepatitis B Surf Antigen Negative Negative 01/02/2025 5:37 PM EST [facility] Blood Venous blood specimen / Unknown Venipuncture / Unknown 01/02/2025 9:40 AM EST 01/02/2025 10:02 AM EST Satnam Beckford MD LAB BLOOD ORDERABLES Final Result Performing Organization Address City/[facility] [address]/ZIP Co de Phone Number [facility] [address] [place] [address] * Hepatitis B Surface Antibody, Quantitative (01/02/2025 9:40 AM EST) Pathologist [facility] Hepatitis B Surface Antibody, Quantitative <8.00 NonReactiv e: <8, Grayzone: 8 - <12, Reactive: >= 12 mIU/mL 01/02/2025 11:14 AM EST [facility] Comment: Nonreactive. Individual is considered not immune to HBV infection. Blood Venous blood specimen / Unknown Venipuncture / Unknown 01/02/2025 9:40 AM EST 01/02/2025 10:02 AM EST Satnam Beckford MD LAB BLOOD ORDERABLES Final Result Performing Organization Address City/[facility] [address]/ZIP Co de Phone Number [facility] [address] [place] [address] * Hepatitis B Core Total Antibody IgG,IgM (01/02/2025 9:40 AM EST) Pathologist [facility] Hepatitis B Core Total Antibody IgG,IgM Negative Negative 01/02/2025 11:14 AM EST [facility] Blood Venous blood specimen / Unknown Venipuncture / Unknown 01/02/2025 9:40 AM EST 01/02/2025 10:02 AM EST Satnam Beckford MD LAB BLOOD ORDERABLES Final Result Performing Organization Address City/[facility] [address]/ZIP Co de Phone Number [facility] [address] [place] [address] * (ABNORMAL) Vitamin D 25 Hydroxy (01/02/2025 9:40 AM EST) Pathologist [facility] Vitamin D 25 Hydroxy 16.2(L) 20.0 - 80.0 ng/mL 01/02/2025 11:15 AM EST [facility] Blood Venous blood specimen / Unknown Venipuncture / Unknown 01/02/2025 9:40 AM EST 01/02/2025 10:02 AM EST Narrative [facility] - 01/02/2025 11:15 AM EST Testing performed on [employer], standardized against NIST SRM [id number]. When testing [...] BLOOD ORDERABLES Final Result Performing Organization Address City/[facility] [address]/[facility] Co de Phone Number [facility] [address] [place] [address] * (ABNORMAL) APTT (01/02/2025 9:40 AM EST) aPTT 53(H) 25 - 35 sec LAB COAGULATION METHOD 01/02/2025 10:20 AM EST [facility] Blood Venous blood specimen / Unknown Venipuncture / Unknown 01/02/2025 9:40 AM EST 01/02/2025 10:01 AM EST Satnam Beckford MD LAB BLOOD ORDERABLES Final Result Performing Organization Address [facility] Co de Phone Number [facility] [address] [place] [address] * (ABNORMAL) Protime-INR (01/02/2025 9:40 AM EST) Prothrombin Time 26.5(H) 12.0 - 14.3 sec LAB COAGULATION METHOD 01/02/2025 10:20 AM EST [facility] INR 2.4(H) 0.9 - 1.1 LAB COAGULATION METHOD 01/02/2025 10:20 AM EST [facility] Blood Venous blood specimen / Unknown Venipuncture / Unknown 01/02/2025 9:40 AM EST 01/02/2025 10:01 AM EST Narrative [facility] - 01/02/2025 10:20 AM EST OPTIMAL INR RANGES FOR PATIENT ON ORAL ANTICOAGULANT THERAPY Prevention of venous thromboembolism INR 2.0 to 3.0 In patients with heart disease: Atrial fibrillation INR 2.0 to 3.0 Valvular heart disease INR 2.0 to 3.0 Tissue heart valves INR 2.0 to 3.0 Mechanical prosthetic valves INR 2.5 to 3.5 Prevention of recurrent GA INR 2.5 to 3.5 Satnam Beckford MD LAB BLOOD ORDERABLES Final Result [facility] [address] [place] [address] * (ABNORMAL) Comprehensive metabolic panel (01/02/2025 9:40 AM EST) Glucose, Plasma 83 74 - 99 mg/dL 01/02/2025 10:32 AM EST [facility] BUN, Plasma 14 7 - 21 mg/dL 01/02/2025 10:32 AM EST [facility] Creatinine, Plasma 0.85 0.70 - 1.20 mg/dL 01/02/2025 10:32 AM EST [facility] BUN/Creatinine Ratio 16 01/02/2025 10:32 AM EST [facility] Sodium, Plasma 139 136 - 145 mmol/L 01/02/2025 10:32 AM EST [facility] Potassium, Plasma 4.2 3.6 - 4.9 mmol/L 01/02/2025 10:32 AM EST [facility] Chloride, Plasma 107 97 - 107 mmol/L 01/02/2025 10:32 AM EST [facility] CO2, Plasma 22 22 - 29 mmol/L 01/02/2025 10:32 AM EST [facility] Anion Gap 10 6 - 16 mmol/L 01/02/2025 10:32 AM EST [facility] Total Calcium, Plasma 8.6(L) 8.9 - 10.2 mg/dL 01/02/2025 10:32 AM EST [facility] Total Protein 6.1(L) 6.3 - 7.9 g/dL 01/02/2025 10:32 AM EST [facility] Albumin, Plasma 2.9(L) 3.5 - 5.2 g/dL 01/02/2025 10:32 AM EST [facility] AST, Plasma 58(H) 10 - 50 U/L 01/02/2025 10:32 AM EST [facility] ALT, Plasma 28 10 - 50 U/L 01/02/2025 10:32 AM EST [facility] Alkaline Phosphatase, Plasma 134(H) 40 - 115 U/L 01/02/2025 10:32 AM EST [facility] Total Bilirubin, Plasma 13.2(H) 0.2 - 1.1 mg/dL 01/02/2025 10:32 AM EST [facility] eGFRcr 109.2 mL/min/1.7 3m*2 01/02/2025 10:32 AM EST [facility] Comment:Reported eGFRcr in m L/min/1.73m2 is based the CKD-EPI 2020 equation that does not use a race coefficient. Blood Venous blood specimen / Unknown Venipuncture / Unknown 01/02/2025 9:40 AM EST 01/02/2025 10:02 AM EST us Satnam Beckford MD LAB BLOOD ORDERABLES Final Result [facility] [address] [place] [address] * (ABNORMAL) CBC and Differential (01/02/2025 9:40 AM EST) WBC Count 2.84(L) 3.70 - 10.30 10*3/uL LAB HEMATOLOGY METHOD 01/02/2025 10:10 AM EST [facility] RBC Count 2.76(L) 4.60 - 6.10 10*6/uL LAB HEMATOLOGY METHOD 01/02/2025 10:10 AM EST [facility] HGB 8.7(L) 13.7 - 17.5 g/dL LAB HEMATOLOGY METHOD 01/02/2025 10:10 AM EST [facility] HCT 28.6(L) 40.0 - 51.0 % LAB HEMATOLOGY METHOD 01/02/2025 10:10 AM EST [facility] Platelet Count 72(L) 155 - 369 10*3/uL LAB HEMATOLOGY METHOD 01/02/2025 10:10 AM EST [facility] MCV 104(H) 79 - 98 fL LAB HEMATOLOGY METHOD 01/02/2025 10:10 AM EST [facility] MCH 31.5 26.0 - 32.0 pg LAB HEMATOLOGY METHOD 01/02/2025 10:10 AM EST [facility] MCHC 30.4(L) 30.7 - 35.5 g/dL LAB HEMATOLOGY METHOD 01/02/2025 10:10 AM [facility] RDW 20.5(H) 11.5 - 14.5 % LAB HEMATOLOGY METHOD 01/02/2025 10:10 AM EST [facility] MPV 10.6 8.8 - 12.5 fL LAB HEMATOLOGY METHOD 01/02/2025 10:10 AM EST [facility] nRBC 0.0 <=0.0 per 100 WBCs LAB HEMATOLOGY METHOD 01/02/2025 10:10 AM [facility] Differential Type Automated LAB HEMATOLOGY METHOD 01/02/2025 10:10 AM [facility] Neutrophils % 49 % LAB HEMATOLOGY METHOD 01/02/2025 10:10 AM [facility] Lymphocytes % 30 % LAB HEMATOLOGY METHOD 01/02/2025 10:10 AM [facility] Monocytes % 16 % LAB HEMATOLOGY METHOD 01/02/2025 10:10 AM [facility] Eosinophils % 4 % LAB HEMATOLOGY METHOD 01/02/2025 10:10 AM [facility] Basophils % 1 % LAB HEMATOLOGY METHOD 01/02/2025 10:10 AM [facility] Immature Granulocytes % 0 % LAB HEMATOLOGY METHOD 01/02/2025 10:10 AM [facility] Neutrophils Absolute 1.39(L) 1.60 - 6.10 10*3/uL LAB HEMATOLOGY METHOD 01/02/2025 10:10 AM [facility] Lymphocytes Absolute 0.85(L) 1.20 - 3.90 10*3/uL LAB HEMATOLOGY METHOD 01/02/2025 10:10 AM EST [facility] Monocytes Absolute 0.45 0.30 - 0.90 10*3/uL LAB HEMATOLOGY METHOD 01/02/2025 10:10 AM [facility] Eosinophils Absolute 0.11 0.00 - 0.50 10*3/uL LAB HEMATOLOGY METHOD 01/02/2025 10:10 AM EST [facility] Basophils Absolute 0.03 0.00 - 0.10 10*3/uL LAB HEMATOLOGY METHOD 01/02/2025 10:10 AM EST [facility] Immature Granulocytes Absolute 0.01 0.00 - 0.06 10*3/uL LAB HEMATOLOGY METHOD 01/02/2025 10:10 AM EST [facility] Blood Venous blood specimen / Unknown Venipuncture / Unknown 01/02/2025 9:40 AM EST 01/02/2025 10:02 AM EST Narrative [facility] - 01/02/2025 10:10 AM EST Therapeutic decision making should be based on absolute values, rather than percentages. us Satnam Beckford MD LAB BLOOD ORDERABLES Final Result [facility] [address] [place] [address] documented in this encounter Visit Diagnoses Diagnosis [...] PRN, Starting on 01/03/25 at 0834, Until Sun01/03/25 at 1436, Routine New Bag 01/03/2025 8:34 [...] on 01/04/25 at 1400, Until Discontinued, Routine Given 01/16/2025 [...] Richmond RN) 0832 (Given - Provider: Armida Oscar, RN) aspirin chewable tablet 81 mg 81 [...] Mcfarland RN)2116 (Given - Provider: Mirtha Miranda, DEMETRIA) 0842 (Given - Provider: Abigail Richmond RN)2056 (Given - Provider: Allison Rosenbaum RN) 0832 (Given - Provider: Armida Oscar RN) carvedilol (Coreg) tablet 25 mg 25 mg, Oral, 2 times daily, First dose (after last modification) on Sun01/05/25 at 0900, Until Discontinued, Routine 0916 (Given - Provider: Bree Mcfarland RN)2110 (Given - Provider: Mirtha Miranda RN) 0841 (Given - Provider: Abigail Richmond, DEMETRIA)2057 (Given - Provider: Allison Rosenbaum RN) 0832 (Given - Provider: Armida Oscar RN) ergocalciferol (Vitamin D-2) capsule 50,000 Units 50,000 Units, Oral, Weekly, First dose on Sun01/09/25 at 0900, Until Discontinued, Routine 0831 (Given - Provid er: Armida Oscar RN) escitalopram (Lexapro) tablet 10 mg 10 mg, Oral, Daily, First dose on Sun01/03/25 at 0900, Until Discontinued, Routine 09 (Given - Provider: Bree Mcfarland RN) 08 (Given - Provider: Abigail Richmond RN) 0831 (Given - Provider: Armida Oscar RN) ferrous sulfate EC tablet 324 mg 324 mg, Oral, Daily with breakfast, First dose on Sun01/03/25 at 0800, Until Discontinued 09 (Given - Provider: Bree Mcfarland RN) 08 (Given - Provider: Abigail Richmond RN) 0832 [...] Mcfarland RN)2110 (Given - Provider: Mirtha Miranda, RN) 0633 [...] Units, Subcutaneous, 2 times nightly (2100 & 030), First dose on 01/11/25 at [...] on Sun01/04/25 at 1400, Until Discontinued, Routine 0916 (Given - Provider: Bree Mcfarland RN)1431 (Given - Provider: Bree Mcfarland RN)1740 (Given - Provider: Bree Mcfarland RN)2110 (Given - Provider: Mirtha Miranda, RN) 0840 (Given - Provider: Abigail Richomnd, DEMETRIA)1350 (Given - Provider: Abigail Richmond RN)1734 (Given [...] Mcfarland RN)2110 (Given - Provider: Mirtha Miranda, RN) 0841 (Given - Provider: Abigail Richmond RN) mycophenolate (Cellcept) capsule 750 mg 750 mg, Oral, 2 times daily, First dose (after last modification) on Cassia 01/15/25 at 2100, Until Discontinued, Routine 205 (Given - Provider: Allison Rosenbaum RN) 0832 (Given - Provider: Armida Oscar, RN) pantoprazole (Protonix) EC tablet 40 mg 40 mg, Oral, Daily, First dose on Sun01/05/25 at 0900, Until Discontinued, Routine 0915 (Given - Provider: Bree Mcfarland RN) 0841 (Given - Provider: Abigail Richmond, RN) 0832 (Given - Provider: Armida Oscar, DEMETRIA) piperacillin-tazobacta m (Zosyn) 4.5 g in sodium chloride 0.9% 100 mL IVPB (vial adapter required) (CANCELED) 4.5 g, Intravenous, Every 6 hours, 27 doses, First dose on Sun01/11/25 at 0730, Last dose on Sun01/17/25 at 1930, Routine 0103 (New Bag - Provider: Mirtha Miranda RN)0630 (New Bag - Provider: Mirtha Miranda, RN)1430 (New Bag - Provider: Bree Mcfarland, DEMETRIA)2111 (New Bag - Provider: Mirtha Miranda, RN - Comment: patient wanted to shower [...] Oral, Daily, 5 doses, First dose on Cassia 02/05/25 at 0900, Last dose on Sun02/09/25 at 0900, Routine predniSONE (Deltasone) tablet 30 mg(Linked Group 1) 30 mg, Oral, Daily, 5 doses, First dose on 01/31/25 at 0900, Last dose on Sun02/04/25 at [...] Routine 0915 (Given - Provider: Bree Mcfarland, DEMETRIA)2114 (Not Given - Provider: Mirtha Miranda RN - Reason: Patient/Family/Repre sentative Refused) 0841 (Given - Provider: Abigail Richmond, DEMETRIA)2058 (Given - Provider: Allison Rosenbaum RN) 0838 (Not Given - Provider: Armida Oscar RN - Reason: Patient/Family/Represen tative Refused) sodium chloride 0.9 % flush 10 mL 10 mL, Intravenous, Every 12 hours, First dose on Sun01/03/25 at 1700, Until Discontinued, Routine 0411 (Given - Provider: Mirtha Miranda RN)1740 (Given - Provider: Bree Mcfarland, DEMETRIA) 0401 (Given - Provider: Mirtha Miranda RN)1734 [...] Bree Mcfarland RN)2200 (Given - Provider: Mirtha Miranda, RN) 0844 (Given - Provider: Abigail Richmond RN)2100 (Given - Provider: Allison Rosenbaum RN) 1000 (Canceled Entry - Provider: Armida Oscar RN) sodium chloride 0.9 % flush 10 mL(Linked Group 5) 10 mL, Intravenous, Every 12 hours, First dose on Sun01/13/25 at 1615, Until Discontinued, Routine, Holding - Preprocedure 0354 (Given - Provider: Mirtha Miranda RN)1600 (Given - Provider: Bree Mcfarland, DEMETRIA) 0323 (Given - Provider: Mirtha Miranda RN)0843 (Given - Provider: Abigail Richmond RN)1547 (Given - Provider: Abigail Richmond RN) 0334 (Given - Provider: Allison Rosenbaum RN)1615 (Canceled Entry - Provider: Armida Oscar RN) sulfamethoxazole-trime thoprim (Bactrim) 400-80 MG per tablet 1 tablet 1 tablet, Oral, Daily, First dose on 01/10/25 at 0900, Until Discontinued, Routine 0915 (Given [...] RN)1734 (Given - Provider: Abigail Richmond RN) 0606 (Given - Provider: Allison Rosenbaum RN)1800 (Canceled Entry - Provider: Automatic Discharge Provider - Comment: Automatically canceled at discontinue of medication order) traZODone (Desyrel) tablet 50 mg 50 mg, Oral, Nightly, First dose on Cassia 01/08/25 at 2100, Until Discontinued, Routine 211 (Given - Provider: Mirtha Miranda RN) 2057 (Given - Provider: Allison Rosenbaum RN) ursodiol (Actigall) capsule 300 mg (CANCELED) 300 mg, Oral, 2 times daily, First dose on 01/10/25 at 1200, Until Discontinued, Routine 0915 (Given - Provider: Bree Mcfarland RN)211 (Given - Provider: Mirtha Miranda RN) 0844 (Given - Provider: Abigail Richmond RN)205 (Given - Provider: Allison Robi, RN) 0831 (Given - Provider: Armida Oscar RN) ursodiol (Actigall) capsule 600 mg 600 mg, [...] 0443 (See Alternativ e - Provider: Allison Rosnebaum RN) ondansetron (Zofran) injection 4 mg 4 [...] greater 0627 (See Alternative - Provider: Mirtha Miranda [...] Miranda, RN) 0633 (Given - Provider: Mirtha Miranda [...] documented as of this encounter 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
--- OUTSIDE RECORDS SUMMARY | 2025-01-03 07:01 | XMS_ITS | Encounter Summary ---
Author Organization Healthcare Address [address] [place] [address] Care Team Providers Care Cement Kiln Operator Name Role Phone Param Eng DO Primary Care Provider Reason for Visit * Auth/Cert (Routine) Specialty Diagnoses / Procedures Referred By Contac t Referred To Contact Diagnoses Decompensation of cirrhosis of liver (CMS/HCC) Satnam Beckford MD [address] [facility] [address] [place] [address] Phone: tel: fax: [facility] [address] [place] [address] Phone: tel: Referral ID Status Reason Start Date Expiration Date Visits Re quested Visits Authorized [id number] 1 1 Encounter Details Date Type Department Care Team (Late st Contact Info) Description 01/03/2025 7:01 AM EST Anesthesia Event [facility] OPER[facility] ROOM [address] [place] [address] Josafat Rivera MD [address] [place] [address] Aravind Benton DO [address] [place] [address] Anesthesia Record Procedure Summary Procedure [...] 01/03/25; Removal Time: 1720 01/03/25 0708 by Aravind Benton DO 01/03/25 1720 by Linden Palmer [...] Aravind Benton, DO 01/16/25 154 by Armida Oscar RN Arterial Line Placement Date: 01/03/25; Placement [...] Per order 01/03/25 1400 by Elyssa Augustin 01/03/25 1700 by Elyssa Augustin documented in this encounter Social History Tobacco [...] or relatives? Twice a week 01/02/2025 [employer]ends [employer] Not on file 01/02 Do you belong to any clubs o r organizations such as sabianist groups, unions, fraternal or athletic groups, or [...] housing, medical care, and heating? Hard 01/02/2025 [facility] - [...] any time in the past 12 m [facility], were you homeless or living in a skilled nursing (including now)? No 01/02/2025 [facility] Utilities Answer Date Recorded In the [...] drink first t edgardo in the morning (EYE-ADMINISTRATIVE COORDINATOR) to steady your nerves or to get rid of a hangover? 1 01/02/2025 CAGE Questionnaire Score 4 025 Sex and Gender Information Value Date Recorded Sex Assigned at Not on file Legal Sex Male 2:45 PM EDT Gender Identity Not on file Sexual Orientation Not on file documented as of this encounter Mental Status * Resp Rate (Set) Answer Entry Date Author 20 01/03/2025 2:35 PM EST Interface , Device In * Pressure Support (cm H2O) Answer Entry Date Author 10 01/03/2025 2:35 PM EST Interface , Device In * Minute Ventilation Set (L/min) Answer Entry Date Author 10.3 01/03/2025 2:35 PM EST Interface , Device In * Insp Time (sec) Answer Entry Date Author 1 01/03/2025 2:35 PM EST Interface , Device In * Patient Category Range Answer Entry Date Author Adult 01/03/2025 2:35 PM EST Interface , Device In * Output Question Answer Entry Date Author Urine 155 01/03/2025 2:07 PM EST Aravind Benton DO * Assessment Question Answer Entry Date Author Warming Device Forced warm air;Warm blankets 01/03/2025 7:05 AM Aravind Cisneros DO O2 Delivery Method Endotracheal tube 01/03/2025 7:05 AM Aravind Cisneros DO * Other Vitals Question Answer Entry Date Author BIS Monitor 37 01/03/2025 2:22 PM EST Inter face, Device In * iCO2 Answer Entry Date Author 0.1 01/03/2025 2:35 PM EST Interface , Device In documented in this encounter Miscellaneous Notes * [...] portions of the procedure(s) and immediately available [facility] the entire duration. See [...] portions of the procedure(s) and immediately available [facility] the entire duration. See [...] portions of the procedure(s) and immediately available [facility] the entire duration. See [...] portions of the procedure(s) and immediately available [facility] the entire duration. See [...] portions of the procedure(s) and immediately available [facility] the entire duration. See resident note for details. * Anesthesia Preprocedure Evaluation - Bruno Luong MD - 01/02/2025 8:16 PM EST Images from the original note were not included. Procedure Information Date/Time: 01/03/25 0600 Procedure: TRANSPLANT, LIVER Location: [facility] OR / SO OR Surgeons: Satnam Beckford MD Department [...] Cage questionnaire guilty: 1 Cage questionnaire eye compliance analyst: 1 Cage Overall score: 4 Illicit drug use: Social History Substance and Sexual Activity Drug Use Never Family History: family history is not on file. Objective: WEIGHT: Wt Readings from Last 2 Encounters: 01/02/25 105 kg (232 lb 9.4 oz) 12/30/24 108 kg (237 lb 3.4 oz) [place] Body Weight: [place] body weight: 82.2 kg (181 lb 4.8 [...] Abnormal Ventricular Rate 66 Atrial Rate 66 SC Interval 178 QRSD Interval 88 QT Interval 474 QTC Interval 496 P [place] 45 R [place] 29 T Wave [place] 19 Diagnosis Normal sinus rhythm Diagnosis QTcB [...] is no recent study available for direct kidx-nv-hpkj comparison. Anesthesia Related Medical History: AIRWAY HISTORY [...] ABG No results found for: PHART , FOP3HNG , PO2ART , SO2ART , BEART , FLU9TLP , HCTART , SODIUMART , POTASSIUMART , POCTCL , POCGLU , IONCALART , LACTATE No results found for: PH , PCO2 , PO2 , B2OWCKPP , BASEEXC , HCTSYR , KSYR , [...] is no recent study available for direct ckwy-tn-tzth comparison. PFTs FEV1 PRE (L) Date/Time Value 10/22/2024 1404 3.09 (A) FEV1 PRED (no units) Date/Time Value 10/22/2024 1404 4.34 [id number] (L) Date/Time Value 10/22/2024 1404 3.76 (A) [...] Description 02/17/2025 7:00 AM EST Clinical Support [facility] [address] [place] [address] 02/17/2025 8:40 AM EST Office Visit [facility] [address] [place] [address] [facility] 03/06/2025 11:10 AM EST Appointment [facility] [address] [place] [address] Natalya Valentine MD [address] [place] [address] documented as of this encounter Procedures Procedure Name Priority Date/Time Associated Diagnosis Comments PB ANESTHESIA NON-TIMED PROCEDURE PLACEHOLDER Routine 01/03/2025 8:09 AM EST ANESTHESIA PERIPHERAL IV PLACEMENT Routine 01/03/2025 7:30 AM EST ANESTHESIA ULTRASOUND GUIDED Routine 01/03/2025 7:30 AM EST PB ANESTHESIA NON-TIMED PROCEDURE PLACEHOLDER Routine 01/03/2025 7:30 AM EST SC AN CENTRAL LINE TRIPLE LUMEN Routine 01/03/2025 7:30 AM EST SC INSERT/PLACE FLOW DIRECT CATH Routine 01/03/2025 7:30 AM EST ANESTHESIA ULTRASOUND GUIDED Routine 01/03/2025 7:30 AM EST PB ANESTHESIA NON-TIMED PROCEDURE PLACEHOLDER Routine 01/03/2025 7:30 AM EST SC AN CENTRAL LINE DOUBLE LUMEN Routine 01/03/2025 7:30 AM EST ANESTHESIA ULTRASOUND GUIDED Routine 01/03/2025 7:30 AM EST PB ANESTHESIA NON-TIMED PROCEDURE PLACEHOLDER Routine 01/03/2025 7:30 AM EST SC AN CENTRAL LINE TRIPLE LUMEN Routine 01/03/2025 7:30 AM EST PB ANESTHESIA NON-TIMED PROCEDURE PLACEHOLDER Routine 01/03/2025 7:15 AM EST PB ANESTHESIA PLACEHOLDER Routine 01/03/2025 7:08 AM EST SC AN ELECTIVE ENDOTRACHEAL AIRWAY Routine 01/03/2025 7:08 [...] MD ANESTHESIA ORDERABLES Final Re sult * SC AN CENTRAL LINE TRIPLE LUMEN, PB ANESTHESIA [...] Josafat Rivera MD Resident: Aravind Benton DO Josafat Rivera MD ANESTHESIA ORDERABLES Final Re sult * SC AN CENTRAL LINE DOUBLE LUMEN, PB ANESTHESIA NON-TIMED PROCEDURE PLACEHOLDER, ANESTHESIA ULTRASOUND GUIDED, SC INSERT/PLACE FLOW DIRECT CATH (01/03/2025 7:30 AM [...] MD ANESTHESIA ORDERABLES Final Re sult * SC AN CENTRAL LINE TRIPLE LUMEN, PB ANESTHESIA [...] MD ANESTHESIA ORDERABLES Final Re sult * SC AN ELECTIVE ENDOTRACHEAL AIRWAY, PB ANESTHESIA PLACEHOLDER [...] No change to dentition. RSI with cp Josafat Rivera MD ANESTHESIA ORDERABLES Final Re [...] documented as of this encounter Care Teams Cement Kiln Operator Relationship Specialty Start Date End Date Param Eng DO [address] [place] [address] [place] [address] PCP - General 12/22/24 documented as of this encounter
--- OUTSIDE RECORDS SUMMARY | 2025-01-12 11:55 | XMS_ITS | Encounter Summary ---
Author Organization Healthcare Address [address] [place] [address] Care Team Providers Care Press Cleaner Name Role Phone Param Eng DO Primary Care Provider [phone] Reason for Visit * Auth/Cert (Routine) Specialty Diagnoses / Procedures Referred By Contwen t Referred To Contact Diagnoses Decompensation of cirrhosis of liver (CMS/HCC) Satnam Beckford MD [address] [place] [address] Phone: tel: fax: [facility] Inpatient [address] [place] [address] Phone: tel: Referral ID Status Reason Start Date Expiration Date Visits Re quested Visits Authorized [id number] 1 1 Encounter Details Date Type Department Care Team (Late st Contact Info) Description 2025 11:55 AM EST Anesthesia Event [facility] Endoscopy [address] [place] [address] Da De MD [address] [place] [address] Anesthesia Record Procedure Summary Procedure [...] or relatives? Twice a week 01/02/2025 Attends [employer] Services Not on file 01/02 Do you belong to any clubs o r organizations such as judaism groups, unions, fraternal or athletic groups, or [...] housing, medical care, and heating? Hard 01/02/2025 [facility] Occup[facility] - Occupational Stress Questionnaire Answer Date [...] any time in the past 12 m [facility], were you homeless or living in a care home (including now)? 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 1 01/02/2025 CAGE Questionnaire Score 4 025 Sex and Gender Information Value Date Recorded Sex Assigned at Not on file Legal Sex Male 2:45 PM EDT Gender Identity Not on file Sexual Orientation Not on file documented as of this encounter Mental Status * Minute Ventilation Set (L/min) Answer Entry Date Author 0.6 2025 12:58 PM EST Interfac e, Device In * Insp Time (sec) Answer Entry Date Author 1.6 2025 12:51 PM EST Interfac e, Device In * Anesthesia Monitoring Question Answer Entry Date Author Temp 96.8 2025 12:37 PM EST Bethany Cuevas CRNA * Assessment Question Answer Entry Date Author Warming Device Warm blankets 2025 11:58 AM EST Bethany Guerrero CRNA O2 Delivery Method Endotracheal tube 2025 11:58 AM EST Bethany Ayers CRNA documented in this encounter Miscellaneous Notes [...] and Staff Patient location during procedure: OR POLICE RESERVES COMMANDER: Bethany Ayers CRNA Performed: POLICE RESERVES COMMANDER Patient Condition Indications for airway management: anesthesia [...] CRNA; Parmjit Garcia MD Procedure: ERCP Location: [facility] Endoscopy Relevant Problems Cardio (+) Essential [...] Component Value Date PHART 7.34 (L) 01/03/2025 [id number] 35 01/03/2025 PO2ART 159 (H) 01/03/2025 SO2ART 99 (H) 01/03/2025 BEART -6.3 (L) 01/03/2025 PET3HLS 21 (L) 01/03/2025 HCTART 24.0 (L) 01/03/2025 SODIUMART 139 01/03/2025 POTASSIUMART 4.8 01/03/2025 POCTCL 112 (H) 01/03/2025 POCGLU 165 (H) 01/03/2025 IONCALART 5.4 (H) 01/03/2025 LACTATE 1.7 (H) 01/03/2025 Lab Results Component Value Date PH 7.31 (L) 01/03/2025 PCO2 42 01/03/2025 PO2 53 (H) 01/03/2025 [id number] 99 (H) 01/03/2025 BASEEXC -5.2 (L) 01/03/2025 [...] is no recent study available for direct clev-qy-bavs comparison. PFTs FEV1 PRE (L) Date/Time Value 10/22/2024 1404 3.09 (A) FEV1 PRED (no units) Date/Time Value 10/22/2024 1404 4.34 [id number] (L) Date/Time Value 10/22/2024 1404 3.76 (A) [...] Description 02/17/2025 7:00 AM EST Clinical Support [facility] [place] [address] [place] [address] 02/17/2025 8:40 AM EST Office Visit [facility] [place] [address] [place] [address] [facility]vs[facility]-Gtsll-P urgery-Paul 03/06/2025 11:10 AM EST Appointment [facility] [address] [place] [id number] Natalya Valentine MD [address] [place] [address] documented as of this encounter Procedures Procedure Name Priority Date/Time Associated Diagnosis Comments PB ANESTHESIA PLACEHOLDER Routine 2025 11:59 AM EST MS AN ELECTIVE ENDOTRACHEAL AIRWAY Routine 2025 11:59 AM EST documented in this encounter Results * MS AN ELECTIVE ENDOTRACHEAL AIRWAY, PB ANESTHESIA PLACEHOLDER (2025 11:59 AM EST) Narrative Bethany Ayers CRNA - 2025 11:59 AM EST Bethany Ayers CRNA 2025 12:20 PM Airway Date/Time: 2025 11:59 AM Reason: elective Airway not difficult General Information and Staff Patient location during procedure: OR POLICE RESERVES COMMANDER: Bethany Ayers CRNA Performed: POLICE RESERVES COMMANDER Patient Condition Indications for airway management: anesthesia [...] documented as of this encounter Care Teams Press Cleaner Relationship Specialty Start Date End Date Param Eng DO [address] [place] [address] [place] [address] PCP - General 12/22/24 documented as of this encounter
--- OUTSIDE RECORDS SUMMARY | 2025-01-20 08:40 | XMS_ITS | Encounter Summary ---
Author Organization [facility] Address [address] [place] [address] Care Team Providers Care Corsage Maker Name Role Phone Velasquez Param Augie HORTON Primary Care Provider [phone] Reason for Visit * Reason Comments Immunosuppression Liver Txp Post-Op Encounter Details Date Type Department Care Team (Late st Contact Info) Description 01/20/2025 8:40 AM EST Office Visit [facility] [address] [address] Chacha Jones APRN [address] [facility] [place] [address] Transplant-Liver- Surgery-Paul Liver replaced by transplant (Primary Dx); Encounter for long-term (current) use of high-risk medication; Aftercare following organ transplant; Immunosuppression (CMS/HCC); Physical debility; Moderate protein-calorie malnutrition (CMS/HCC); Biliary stricture of transplanted liver (CMS/HCC); Other secondary hypertension; Anemia, unspecified type; Hypomagnesemia; Benign essential tremor Social History Tobacco Use Types Packs/Day Years [...] any clubs o r organizations such as advent groups, unions, fraternal or athletic groups, or [...] heating? Hard 01/02/2025 [facility] - Occupational Stress Questionnaire Answer Date [...] time in the past [address] [facility], were you homeless or living in a half-way (including now)? No 01/02/2025 [facility] Utilities Answer Date Recorded In the past 12 months has [facility] [employer], gas, oil, or water [employer] threatened to shut off services in your [...] drink first t edgardo in the morning (EYE-TRAUMA COORDINATOR) to steady your nerves or to [...] Sign Reading Time Taken Comments Blood Pressure 120/79 01/20/2025 7:10 AM EST Pulse 71 01/20/2025 7:10 AM EST Temperature 36.8 C (98.3 F) 01/20/2025 7:10 AM EST Respiratory Rate 16 01/20/2025 7:10 AM EST Oxygen Saturation 99% 01/20/2025 7:10 AM EST Inhaled Oxygen Concentration - - Weight 91.3 kg (201 lb 4.5 oz) 01/20/2025 7:10 A M EST Height 195.6 cm (6' 5 ) 01/20/2025 7:10 AM EST Body Mass Index 23.87 01/20/2025 7:10 AM EST documented in this encounter Functional Status * BP Answer Date of Assessment Author 120/79 01/20/2025 7:10 AM EST Randi Contreras RN * Temp Answer Date of Assessment Author 98.3 01/20/2025 7:10 AM EST Randi Contreras RN * Pulse Answer Date of Assessment Author 71 01/20/2025 7:10 AM EST Randi Contreras RN * Resp Answer Date of Assessment Author 16 01/20/2025 7:10 AM EST Randi Contreras RN * SpO2 Answer Date of Assessment Author 99 01/20/2025 7:10 AM EST Randi Contreras RN * Height Answer Date of Assessment Author 77 01/20/2025 7:10 AM EST Randi Contreras RN * Weight Answer Date of Assessment Author 3220.48 01/20/2025 7:10 AM EST Randi Contreras RN * BMI (Calculated) Answer Date of Assessment Author 23.9 01/20/2025 7:10 AM Randi Shields RN * Percent Excess Weight Loss Answer Date of Assessment Author 0 01/20/2025 7:10 AM Randi Shields RN * Total Weight Change Percent Answer Date of Assessment Author 2222 01/20/2025 7:10 AM Randi Shields RN * Weight Change Since Preop Answer Date of Assessment Author 91.28 01/20/2025 7:10 AM Randi Shields RN * Initial Excess Weight Answer Date of Assessment Author -94.35 01/20/2025 7:10 AM Randi Shields RN * IBW in lbs (Bariatric) Answer Date of Assessment Author 208 01/20/2025 7:10 AM Randi Shields RN * Weight Change Since Last Visit Answer Date of Assessment Author 91.28 01/20/2025 7:10 AM Randi Shields RN * IBW in kg (Bariatric) Answer Date of Assessment Author 94.35 01/20/2025 7:10 AM Randi Shields RN * Percent of IBW Answer Date of Assessment Author 3,413.33 01/20/2025 7:10 AM Randi Shields RN * EBW (kg) Answer Date of Assessment Author 3,217.81 01/20/2025 7:10 AM Randi Shields RN * EBW (lbs) Answer Date of Assessment Author 3,207.48 01/20/2025 7:10 AM Randi Shields RN * Weight Change 24 hrs Answer Date of Assessment Author -6.1 01/20/2025 7:10 AM Randi Shields RN * BSA (Calculated - sq m) Answer Date of Assessment Author 2.23 01/20/2025 7:10 AM Randi Shields RN * BMI (Calculated) Answer Date of Assessment Author 23.86 01/20/2025 7:10 AM Randi Shields RN * IBW/kg (Calculated) Male Answer Date of Assessment Author 89.1 01/20/2025 7:10 AM Randi Shields RN * IBW/kg (Calculated) Female Answer Date of Assessment Author 84.6 01/20/2025 7:10 AM Randi Shields RN * Restart Vitals Timer Answer Date of Assessment Author Yes 01/20/2025 7:10 AM Randi Shields RN * IBW/kg (Calculated) Answer Date of Assessment Author 89.1 01/20/2025 7:10 AM Randi Shields RN * Over the past 2 weeks, [...] 01/20/2025 7:11 AM Randi Turner RN * Over the past 2 weeks, [...] 01/20/2025 7:11 AM Randi Turner RN * How difficult have these problems made it for you to do your work, take care of things at home, or get along with other people? Answer Date of Assessment Author Not difficult at all 01/20/2025 7:11 AM Randi Reyna RN * Current supplemental O2 requirements Question Answer Date of Assessment Author Oxygen Therapy None (Room air) 01/20/2025 7:10 AM Randi Turner RN * Hospitalization Question Answer Date of Assessment Author Hospitalized since last clin ic visit? Yes 01/20/2025 7:10 AM Columba Turner RN * Weight in (lb) to have BMI = 25 Answer Date of Assessment Author 210.4 01/20/2025 7:10 AM Randi Shields RN * BMI (Calculated) Answer Date of Assessment Author 23.9 01/20/2025 7:10 AM Randi Shields RN * Percent Excess Weight Loss Answer Date of Assessment Author 0 01/20/2025 7:10 AM Randi Shields RN * Weight Change Since Preop Answer Date of Assessment Author 91.3 01/20/2025 7:10 AM Randi Shields RN * Initial Excess Weight Answer Date of Assessment Author -94.35 01/20/2025 7:10 AM Randi Shields RN * IBW in kg (Bariatric) Answer Date of Assessment Author 94.35 01/20/2025 7:10 AM Randi Shields RN * IBW in lb (Bariatric) Answer Date of Assessment Author 208 01/20/2025 7:10 AM Randi Shields RN * Weight Change Since Last Visit Answer Date of Assessment Author -6.1 01/20/2025 7:10 AM Randi Shields RN * Percent of IBW Answer Date of Assessment Author 96.77 01/20/2025 7:10 AM Randi Shields RN * EBW (kg) Answer Date of Assessment Author -3.07 01/20/2025 7:10 AM Randi Shields RN * EBW (lb) Answer Date of Assessment Author -6.72 01/20/2025 7:10 AM Randi Shields, DEMETRIA * Difference in Weight Since Last Visit Answer Date of Assessment Author -6.1 01/20/2025 7:10 AM Randi Shields, DEMETRIA * Temp (in Celsius) for ANDREAFSKI IV Answer Date of Assessment Author 36.8 01/20/2025 7:10 AM Randi Shields, DEMETRIA * IBW/kg (Calculated) Answer Date of Assessment Author 89.1 01/20/2025 7:10 AM Randi Shields, RN * Adult Low Range Vt 6mL/kg Answer Date of Assessment Author 534.6 01/20/2025 7:10 AM Randi Shields RN * Adult Moderate Range Vt 8mL/kg Answer Date of Assessment Author 712.8 01/20/2025 7:10 AM Randi Shields RN * Adult High Range Vt 10mL/kg Answer Date of Assessment Author 891 01/20/2025 7:10 AM Randi Shields, DEMETRIA * Vitals Timer Question Answer Date of Assessment Author Restart Vitals Timer Yes 01/20/2025 7:10 AM E Randi Carlisle RN * Pain Screening/Additional Assessments Question Answer Date of Assessment Author Pain Screening/Assessments Pain Screening 01/20/2025 7:10 AM Randi Turner, DEMETRIA * Pain Screening Answer Date of Assessment Author 0-10 01/20/2025 7:10 AM Randi Shields, DEMETRIA * BP Answer Date of Assessment Author 120/79 01/20/2025 7:10 AM Randi Shields RN * Temp Answer Date of Assessment Author 98.3 01/20/2025 7:10 AM Randi Shields RN * Pulse Answer Date of Assessment Author 71 01/20/2025 7:10 AM Randi Shields, DEMETRIA * Resp Answer Date of Assessment Author 16 01/20/2025 7:10 AM Randi Shields, DEMETRIA * SpO2 Answer Date of Assessment Author 99 01/20/2025 7:10 AM Randi Shields RN * Height Answer Date of Assessment Author 77 01/20/2025 7:10 AM Randi Shields RN * Weight Answer Date of Assessment Author 3220.48 01/20/2025 7:10 AM Randi Shields RN * BSA (Calculated - sq m) Answer Date of Assessment Author 2.23 01/20/2025 7:10 AM Randi Shields RN * BMI (Calculated) Answer Date of Assessment Author 23.86 01/20/2025 7:10 AM Randi Shields RN * Restart Vitals Timer Answer Date of Assessment Author Yes 01/20/2025 7:10 AM Randi Shields RN * Over the past 2 weeks, [...] 01/20/2025 7:11 AM Randi Turner RN * Over the past 2 weeks, how often have you been bothered by any of the following problems? Question Answer Date of Assessment Author Trouble falling or staying asleep, or sleeping too much Nearly every day 01/20/2025 7:11 AM Randi Turner RN Feeling tired or having little energy Several days 01/20/2025 7:11 AM Rnadi Turner RN Poor appetite or overeating Not [...] 01/20/2025 7:11 AM Randi Turner RN * How difficult have these problems made it for you to do your work, take care of things at home, or get along with other people? Answer Date of Assessment Author Not difficult at all 01/20/2025 7:11 AM Randi Reyna RN * Weight in (lb) to have BMI = 25 Answer Date of Assessment Author 210.4 01/20/2025 7:10 AM Randi Shields RN documented as of this encounter Mental Status * BP Answer Entry Date Author 120/79 01/20/2025 7:10 AM Randi Shields RN * Temp Answer Entry Date Author 98.3 01/20/2025 7:10 AM Randi Shields RN * Pulse Answer Entry Date Author 71 01/20/2025 7:10 AM Randi Shields RN * Resp Answer Entry Date Author 16 01/20/2025 7:10 AM Randi Shields RN * SpO2 Answer Entry Date Author 99 01/20/2025 7:10 AM Randi Shields RN * Height Answer Entry Date Author 77 01/20/2025 7:10 AM Randi Shields RN * Weight Answer Entry Date Author 3220.48 01/20/2025 7:10 AM Randi Shields RN * BMI (Calculated) Answer Entry Date Author 23.9 01/20/2025 7:10 AM Randi Shields RN * Percent Excess Weight Loss Answer Entry Date Author 0 01/20/2025 7:10 AM Randi Shields RN * Total Weight Change Percent Answer Entry Date Author 222101/20/2025 7:10 AM Randi Shields RN * Weight Change Since Preop Answer Entry Date Author 91.28 01/20/2025 7:10 AM Randi Shields RN * Initial Excess Weight Answer Entry Date Author -94.35 01/20/2025 7:10 AM Randi Shields RN * IBW in lbs (Bariatric) Answer Entry Date Author 208 01/20/2025 7:10 AM Randi Shields RN * Weight Change Since Last Visit Answer Entry Date Author 91.28 01/20/2025 7:10 AM Randi Shields RN * IBW in kg (Bariatric) Answer Entry Date Author 94.35 01/20/2025 7:10 AM Randi Shields RN * Percent of IBW Answer Entry Date Author 3,413.33 01/20/2025 7:10 AM Randi Shields RN * EBW (kg) Answer Entry Date Author 3,217.81 01/20/2025 7:10 AM Randi Shields RN * EBW (lbs) Answer Entry Date Author 3,207.48 01/20/2025 7:10 AM Randi Shields RN * Weight Change 24 hrs Answer Entry Date Author -6.1 01/20/2025 7:10 AM Randi Shields RN * BSA (Calculated - sq m) Answer Entry Date Author 2.23 01/20/2025 7:10 AM Randi Shields RN * BMI (Calculated) Answer Entry Date Author 23.86 01/20/2025 7:10 AM Randi Shields RN * IBW/kg (Calculated) Male Answer Entry Date Author 89.1 01/20/2025 7:10 AM Randi Shields RN * IBW/kg (Calculated) Female Answer Entry Date Author 84.6 01/20/2025 7:10 AM Randi Shields RN * Restart Vitals Timer Answer Entry Date Author Yes 01/20/2025 7:10 AM Randi Shields RN * IBW/kg (Calculated) Answer Entry Date Author 89.1 01/20/2025 7:10 AM Randi Shields RN * Over the past 2 weeks, [...] 01/20/2025 7:11 AM Randi Turner RN * Over the past 2 weeks, how often have you been bothered by any of the following problems? Question Answer Entry Date Author Trouble falling or staying asleep, or sleeping too much Nearly every day 01/20/2025 7:11 AM Randi Turner RN Feeling tired or having little energy Several days 01/20/2025 7:11 AM Randi Turner RN Poor appetite or overeating Not at all 10/2024 7:11 AM Randi Turner RN Feeling bad [...] 01/20/2025 7:11 AM Randi Turner RN * [facility] Calculation Answer Entry Date Author 3 01/20/2025 7:11 AM Randi Shields RN * How difficult have these problems made it for you to do your work, take care of things at home, or get along with other people? Answer Entry Date Author Not difficult at all 01/20/2025 7:11 AM Randi Reyna RN * Weight in (lb) to have BMI = 25 Answer Entry Date Author 210.4 01/20/2025 7:10 AM Randi Shields RN * BMI (Calculated) Answer Entry Date Author 23.9 01/20/2025 7:10 AM Randi Shields RN * Percent Excess Weight Loss Answer Entry Date Author 0 01/20/2025 7:10 AM Randi Shields RN * Weight Change Since Preop Answer Entry Date Author 91.3 01/20/2025 7:10 AM Randi Shields RN * Initial Excess Weight Answer Entry Date Author -94.35 01/20/2025 7:10 AM Randi Shields RN * IBW in kg (Bariatric) Answer Entry Date Author 94.35 01/20/2025 7:10 AM Randi Shields RN * IBW in lb (Bariatric) Answer Entry Date Author 208 01/20/2025 7:10 AM Randi Shields RN * Weight Change Since Last Visit Answer Entry Date Author -6.1 01/20/2025 7:10 AM Randi Shields RN * Percent of IBW Answer Entry Date Author 96.77 01/20/2025 7:10 AM Randi Shields RN * EBW (kg) Answer Entry Date Author -3.07 01/20/2025 7:10 AM Randi Shields RN * EBW (lb) Answer Entry Date Author -6.72 01/20/2025 7:10 AM Randi Shields RN * Difference in Weight Since Last Visit Answer Entry Date Author -6.1 01/20/2025 7:10 AM Randi Shields RN * Temp (in Celsius) for ANDREAFSKI IV Answer Entry Date Author 36.8 01/20/2025 7:10 AM Randi Shields RN * IBW/kg (Calculated) Answer Entry Date Author 89.1 01/20/2025 7:10 AM Randi Shields RN * Adult Low Range Vt 6mL/kg Answer Entry Date Author 534.6 01/20/2025 7:10 AM Randi Shields RN * Adult Moderate Range Vt 8mL/kg Answer Entry Date Author 712.8 01/20/2025 7:10 AM Randi Shields RN * Adult High Range Vt 10mL/kg Answer Entry Date Author 891 01/20/2025 7:10 AM Ranid Shields RN * Vitals Timer Question Answer Entry Date Author Restart Vitals Timer Yes 01/20/2025 7:10 AM Randi Blue RN * Pain Screening Answer Entry Date Author 0-10 01/20/2025 7:10 AM Randi Shields RN documented in this encounter Miscellaneous Notes * Clinician Note - Danette Toledo PharmD - 01/20/2025 8:40 AM EST Transplant Pharmacist completed medication reconciliation and collaborated with multidisciplinary team during clinic visit. * Patient Instructions - Danette Toledo PharmD - 01/20/2025 8:40 AM EST Liver numbers slowly improving overall. Kidney function greatly improved; continue to hydrate well throughout the day, at least 2-3 L of fluid/water daily. Please follow a low-sodium diet, less than 2 g daily. Increase mycophenolate (CellCept) dose to 1000 mg twice daily. Start ropinirole (Requip) 0.25 mg at night to help with muscle jerking at bedtime. Prescription sent to [facility] to vegetable picker after today's clinic visit. Start magnesium supplement for low Mg. Prescription for magnesium oxide 400 mg (1 tab) twice a day sent to [facility] to vegetable picker after today's clinic visit. Also try moving methocarbamol (Robaxin) dose to bedtime to see if this helps your body relax. Decrease water and fluid intake after 6:00 p.m. to help with nocturia. You may use compression stockings for lower extremity edema. Continue doing exercises for your lungs throughout the day. Continue ambulating throughout the day, several times; maintain safety at all times. Continue eating healthy, high-protein, high-calorie meals. Today you were also seen by a transplantdietitian. Today we removed every other abdominal staple and stitches; keep area clean and dry. Do not take scheduled laxatives or stool softeners due to loose bowel movements. Return to clinic on Sunday for follow up. Please call your nurse coordinator Renee or the emergency number should any issues or concerns arise in the meantime. * Addendum Note - Chacha Jones APRN - 01/20/2025 8:40 AM ESTAddended by: CHACHA JONES on: 01/20/2025 02:20 PM Modules accepted: Orders * Progress Notes - Chacha Jones APRN - 01/20/2025 8:40 AM EST Following Sunday POST LIVER TRANSPLANT CLINIC FOLLOW-UP AND IMMUNOSUPPRESSION MANAGEMENT Subjective Cesar Tay is a 45 y.o. male who presents for Immunosuppression and Liver Txp Post-Op History of Present Illness Today I had the pleasure of seeing, Cesar Tay, 1980, for post liver transplant clinic follow-up and immunosuppression management. Cesar Tay is a pleasant 45 y.o. 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 Patient is now 17 days post liver transplant and is here for scheduled clinic follow-up.Transplant surgeon Dr. Beckford. Hospital course was significant for the following: [...] x1 placed into R main hepatic duct. On ursodiol 600 mg twice daily Liver biopsy 01/14 due to elevated LFTs: acute rejection with treatment effect (at least moderate inseverity) + cholangitis. Patient received methylpred IV 500 01/13-01/15 followed by PO prednisone taper. He lives in [place], [place]. Spouse's name is Patricia. Post-transplant, he experienced an increase in bilirubin levels, necessitating an ERCP and stent placement. A repeat procedure is scheduled in 3 months. Elevated liver enzymes prompted a liver biopsy. He was discharged from the hospital on Sunday. Since returning home, he has been experiencing loose bowel movements, which he attributes to the use of Senokot. His appetite remains robust, but he has lost 11 pounds over 3 days. He reports nocturnal sweating and frequent urination, often waking up after approximately 1.5 hours of sleep. He maintains adequate hydration and reports no issues with urination. He does not typically add salt to his food. He uses a rolling walker for mobility outside the home but does not require it indoors. His notes improved stability compared to his pre-transplant state. He consumes 3 Boost protein supplements daily. He reports mild abdominal pain and some pulling sensation on the right side, along with residual stitches from the drainage tubes. He is not taking any analgesics but uses Robaxin as a muscle relaxant. He is currently on a prednisone taper, with a dosage of 60 mg today, reducing to 50 mg tomorrow for5 days, and then decreasing by 10 mg every 5 days. He is also on tacrolimus 2 mg in the morning and1 mg in the evening, mycophenolate (CellCept) 750 mg twice daily, Valcyte, Bactrim, and Diflucan. He is on Lexapro for depression, anxiety, and PTSD, which are well-managed. He is on amlodipine forblood pressure management, blood pressures averaging 110s to 140s over 50s to 70s with a heart ratein the 70s. He is on trazodone for sleep disturbances. He reports occasional tingling in his toes and the solesof his feet. PAST MEDICAL HISTORY: - Alcohol-associated cirrhosis (2024) - Depression - Anxiety - PTSD - Hypertension - Sleep disturbances - Neuropathy PAST SURGICAL HISTORY: - Liver transplant (01/03/2025) - ERCP with stent placement (Post-transplant) SOCIAL HISTORY He lives in [place]. 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 He has 5 grown children. MEDICATIONS CURRENT MEDS: Prednisone 60 mg Oral Daily Tacrolimus 2 mg in the morning, 1 mg in the evening Oral Twice daily CellCept 750 mg Oral Twice daily Valcyte Bactrim Diflucan Lexapro Amlodipine Trazodone Vitamin D Iron Review of Systems: A ROS was performed and negative except as noted: See history of present illness. Body mass index is 23.87 kg/m??. Wt Readings from Last 2 Encounters: 01/20/25 91.3 kg (201 lb 4.5 oz) 01/16/25 97.4 kg (214 lb 11.7 oz) Vitals: 01/20/25 0710 BP: 120/79 Pulse: 71 Resp: 16 Temp: 36.8 ??C (98.3 ??F) SpO2: 99% Current Outpatient Medications Medication Instructions acetaminophen (TYLENOL) 500 mg, Oral, Every 6 hours PRN, Max 2000 mg per 24 hours. amLODIPine (NORVASC) 10 mg, Oral, Daily aspirin 81 mg, Oral, Daily buPROPion SR (Wellbutrin SR) 150 MG 12 hr tablet Take 1 tablet by mouth daily for 3 days, THEN 1 tablet 2 times a day. Do not crush, chew, or split. carvedilol (COREG) 25 mg, Oral, 2 times daily ergocalciferol (VITAMIN D-2) 50,000 Units, Oral, Weekly, Fridays escitalopram (LEXAPRO) 10 mg, Oral, Daily ferrous sulfate 324 mg, Oral, Daily with breakfast, Do not crush, chew, or split. fluconazole (DIFLUCAN) 200 mg, Oral, Daily methocarbamol (ROBAXIN) 500 mg, Oral, 3 times daily PRN Multiple Vitamins-Minerals (Mens Multi Health Formula) tablet 1 tablet, Oral, Daily mycophenolate (CELLCEPT) 750 mg, Oral, 2 times daily, Z94.4. Txp Date: 01/03/25 nutrional drink glucose control (Boost Glucose Control) liquid liquid Drink 1 supplement up to 3 times a day or As Directed as a nutritional supplement. Flavor preference: per patient. Please dispense up to 4 cases at a time per patient request pantoprazole (PROTONIX) 40 mg, Oral, Daily, Do not crush, chew, or split. predniSONE (Deltasone) 10 MG tablet Take 6 tablets by mouth daily for 5 days, THEN 5 tablets daily for 5 days, THEN 4 tablets daily for 5 days, THEN 3 tablets daily for 5 days, THEN 2 tablets daily for 5 days, THEN 1 tablet daily. senna-docusate sodium (Senokot-S) 8.6-50 MG tablet 1 tablet, Oral, 2 times daily PRN sulfamethoxazole-trimethoprim (Bactrim) 400-80 MG tablet 1 tablet, Oral, Daily tacrolimus 1 MG PO capsule Take 2 capsules by mouth every morning AND 1 capsule every evening. Z94.4. transplant date 01/03/25. traZODone (DESYREL) 50 mg, Oral, Nightly ursodiol (ACTIGALL) 600 mg, Oral, 2 times daily valGANciclovir (VALCYTE) 450 mg, Oral, Daily, Do not crush or chew. Allergies[1] Physical Exam Vital signs reviewed and noted (see above) GENERAL: Appears stated age, NAD, able to get on and off of the exam table without assistance, chronically ill-appearing, muscle wasting, generalized body intermittent tremors. EYES: PERRL EOMI bilateral scleral icteric HENT: No lesions in anterior nares; no lesions in oropharynx, head atraumatic and normocephalic. Nothrush NECK: Supple. No thyromegaly or adenopathy. No JVD noted. The trachea appears midline. RESP: Symmetric expansion; no retractions. Clear to auscultation bilaterally except diminished in the bases right greater than the left. CARD: S1, S2, RRR, without murmur, rubs, or gallop. EXTREMITies: 2+ bilateral lower extremity edema. GI: No organomegaly or masses. Nontender, distended. BS present x 4 quadrants. ABDOMINAL INCISION: Bilateral subcostal incision with midline extension with manju in place clean, dry and intact NEURO: Awake, alert and oriented, moves all extremities, grossly intact PSYCH: Pleasant and appropriate. Results Latest Reference Range & Units 01/16/25 04:47 01/16/25 08:09 01/16/25 12:01 01/20/25 06:39 WBC 3.70 - 10.30 10*3/uL 8.27 7.02 RBC 4.60 - 6.10 10*6/uL 2.56 (L) 3.09 (L) Hemoglobin 13.7 - 17.5 g/dL 8.3 (L) 10.2 (L) Hematocrit 40.0 - 51.0 % 26.1 (L) 31.9 (L) Platelet Count 155 - 369 10*3/uL 124 (L) 222 MCV 79 - 98 fL 102 (H) 103 (H) MCH 26.0 - 32.0 pg 32.4 (H) 33.0 (H) MCHC 30.7 - 35.5 g/dL 31.8 32.0 RDW 11.5 - 14.5 % 24.0 (H) 21.2 (H) MPV 8.8 - 12.5 fL 10.3 9.6 nRBC <=0.0 per 100 WBCs 0.0 0.0 Differential Type Automated Neutrophils % % 79 Lymphocytes % % 13 Monocytes % % 6 Eosinophils % % 2 Basophils % % 0 Immature Granulocytes % % 0 Neutrophils Absolute 1.60 - 6.10 10*3/uL 5.55 Lymphocytes Absolute 1.20 - 3.90 10*3/uL 0.93 (L) Monocytes Absolute 0.30 - 0.90 10*3/uL 0.40 Eosinophils Absolute 0.00 - 0.50 10*3/uL 0.11 Basophils Absolute 0.00 - 0.10 10*3/uL 0.01 Immature Granulocyte Absolute 0.00 - 0.06 10*3/uL 0.02 Prothrombin Time 12.0 - 14.3 sec 14.6 (H) INR 0.9 - 1.1 1.1 Glucose 74 - 99 mg/dL 118 (H) 62 (L) POCT Glucose 74 - 99 mg/dL 135 (H) 158 (H) Sodium 136 - 145 mmol/L 138 143 Potassium 3.6 - 4.9 mmol/L 5.1 (H) 4.2 Chloride 97 - 107 mmol/L 107 108 (H) CO2 22 - 29 mmol/L 20 (L) 23 Creatinine 0.70 - 1.20 mg/dL 1.28 (H) 0.92 Anion Gap 6 - 16 mmol/L 11 12 BUN 7 - 21 mg/dL 45 (H) 25 (H) BUN/Creatinine Ratio 35 27 EGFR mL/min/1.73m*2 69.9 103.9 Calcium 8.9 - 10.2 mg/dL 8.3 (L) 8.7 (L) Albumin 3.5 - 5.2 g/dL 2.7 (L) 3.2 (L) Total Protein 6.3 - 7.9 g/dL 4.8 (L) 5.5 (L) ALT, Plasma 10 - 50 U/L 55 (H) 64 (H) AST, Plasma 10 - 50 U/L 23 25 Total Bilirubin, Plasma 0.2 - 1.1 mg/dL 4.5 (H) 3.4 (H) Alkaline Phosphatase 40 - 115 U/L 93 98 Phosphorus 2.5 - 4.5 mg/dL 4.0 Magnesium 1.9 - 2.4 mg/dL 2.0 1.5 (L) GGT 8 - 61 U/L 184 (H) (L): Data is abnormally low (H): Data is abnormally high Laboratory Studies White blood cell count is normal. Hemoglobin is 10.2. Platelet count is 222. Blood sugar is low. Sodium is normal. Potassium is 4.2. Kidney function is excellent, down to 0.9. ALT and AST are 60 and 25 respectively. Bilirubin is 3.4. Magnesium is low. Assessment & Plan Cesar Tay is a pleasant 45 y.o. 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 Patient is now 17 days post liver transplant and is here for scheduled clinic follow-up. Transplant surgeon Dr. Beckford. 1. Post-liver transplant follow-up/allograft/immunosuppression management/malnutrition protein deficiency/anemia/Fabio I/hyperbilirubinemia/hypo magnesemia. His diarrhea could be attributed to the high steroid dosage, recent surgery, and malnutrition. His blood pressure has been well-regulated over the past few days, ranging from 110s to 140s systolic and 50s to 70s diastolic, with a heart rate in the 70s. -His anemia has shown significant improvement, with hemoglobin levels increasing from 8.3 to 10.2 today. The platelet count has also normalized, rising from 124 to 222. His blood glucose levels were slightly low today, but he does not have diabetes. His kidney function is excellent, with creatininelevels decreasing from 1.2 to 0.9 within 2 days. His bilirubin levels have decreased from a previous high of 17 to 3.4 today. -His magnesium levels are low, which may be contributing to his tremors. He is advised to discontinue the use of stool softeners and laxatives. He is encouraged to maintain an active lifestyle throughout the day, ensuring safety and avoiding falls. He is advised to take a full dose of Tylenol with Robaxin approximately 30 minutes to an hour before bedtime. He is instructed to continue his lung exercises throughout the day. He is advised toremove his socks at home and use compression stockings while sitting. He is encouraged to elevate his legs as much as possible when sitting or lying down. He is advised to take showers regularly, allowing water to run over the manju, and to pat dry the area afterward. He is instructed not to apply any creams or lotions to the area. He is advised to bring a snack with him when getting his labs drawn, as fasting is not required. He is advised to continue drinking plenty of water and fluids, limit salt intake, eat well, take protein supplements, walk frequently, and prop his legs up. He will be seen back on Sunday by another provider and then again next week by this provider. If constipationoccurs, he can resume the use of stool softeners and laxatives. -Every other staple will be removed today, followed by the removal of the stitches. - Tremors and muscle jerking mainly at bedtime, start allopurinol 0.25 mg at night - Hypo magnesemia, started on magnesium oxide 400 mg twice daily - Increase CellCept to 1000 mg twice daily due to mild transaminitis 2. Depression. He is currently taking Lexapro for depression, anxiety, and PTSD, which are well-managed. 3. Hypertension. He is on amlodipine and carvedilol for blood pressure management, blood pressures averaging in the 110s to 140s over 50s to 70s with a heart rate in the 70s. 4. Sleep issues. He is on trazodone for sleep disturbances. 5. Neuropathy. He reports occasional tingling in his toes and the soles of his feet. 6. Return to clinic on Sunday PROCEDURE Procedure: Staple removal - Procedural Discussion: Discussed removing every other staple and taking out stitches. - Technique: [place] and stitches were removed. - Biliary stricture. Rising bilirubin, patient underwent MRCP 01/11. MRCP [...] x1 placed into R main hepatic duct. On ursodiol 600 mg twice daily. Repeat ERCP in about 3 months -Explant pathology: Cirrhosis, no pathologic abnormalities -Current immunosuppression regimen: CNI: IR tacrolimus (Prograf) 2 mg in the morning and 1 mg in the evening Antimetabolite: mycophenolate mofetil (Cellcept) 750 mg twice daily in the setting of cholangitis. Increase CellCept to 1000 mg twice daily Prednisone: currently on prednisone taper 60 mg daily for 5 days, then 50 mg daily for 5 days, then40 mg daily We'll follow today's level and make adjustments accordingly if necessary Immunosuppression medication requires regular monitoring to ensure that the patient isn???t experiencing any adverse effects as a result for the therapeutic agent. I have therefore, managed the patient???s immunosuppression medication listed in this note, addressed any toxic side effects, and adjusted levels appropriately. -CMV status: D+/R+, intermediate risk, to stay on Valcyte for a total of 3 months. -Infection Prophylaxis: PJP prophylaxis: On SMZ-TMP per protocol, to be continued x 6 months post- transplant (anticipated discontinuation date: 07/03/25). Antiviral prophylaxis: On valganciclovir per protocol, to be continued x 3 months post-transplant (anticipated discontinuation date: 04/05/25). Antifungal prophylaxis: On fluconazole per protocol, to be continued x 1 month post-transplant (anticipated discontinuation date: 02/02/25). -Hypertension: coreg 25 mg PO BID, amlodipine 10 mg daily -Vitamin D deficiency: preop 25HD 16.2, ergocalciferol 50,000 units weekly started 01/09. Recommendrepeat 25HD in 8 weeks. Verbal consent was obtained to use ambient listening technology to assist in the documentation of the encounter: yes [1] Allergies Allergen Reactions Amoxicillin Hives and Rash Childhood allergy * Progress Notes - Chacha Jones APRN - 01/20/2025 8:40 AM EST Tacrolimus level came back as 3.0, please have patient increase tacrolimus to 3 mg twice daily. documented in this encounter Plan of Treatment Upcoming Encounters Date Type Department Care Team (Late st Contact Info) Description 02/17/2025 7:00 AM EST Clinical Support [facility] [place] [address] [place] [address] 02/17/2025 8:40 AM EST Office Visit [facility] [place] [address] [place] [address] Xmvbiflnji-Axbcx-J urgery-Paul 03/06/2025 11:10 AM EST Appointment [facility] [address] [place] [address] Natalya Valentine MD [address] [place] [address] documented as of this encounter Results * (ABNORMAL) GGT, Plasma (01/26/2025 7:36 AM EST) GGT, Plasma 106(H) 8 - 61 U/L 01/26/2025 8:52 AM EST [facility] Blood Venous blood specimen / Unknown Venipuncture / Unknown 01/26/2025 7:36 AM EST 01/26/2025 8:22 AM EST Chacha Jones APRN LAB BLOOD ORDERABLES Final Res ult [facility] [address] [place] [address] * Tacrolimus (01/26/2025 7:36 AM EST) Tacrolimus 7.0 4.0 - 17.0 ng/mL 01/26/2025 12:10 PM EST [facility] Comment: Tacrolimus therapeutic range: Initial (<3 mo.) Maintenance Kidney 8-13 ng/mL 4-8 ng/mL Liver 8-13 ng/mL 4-8 ng/mL Heart 8-15 ng/mL 7-13 ng/mL Lung;Heart/Lung 8-17 ng/mL 8-13 ng/mL Blood Venous blood specimen / Unknown Venipuncture / Unknown 01/26/2025 7:36 AM EST 01/26/2025 8:24 AM EST Narrative [facility] - 01/26/2025 12:10 PM EST Test performed by LC-MS/MS at the [facility]. This test was developed and its performance characteristics determined by [facility]. It has not been cleared or approved by the FDA. The laboratory is regulated under CLIA as qualified to perform high-complexity testing. This test is used for clinical purposes. Test performed by LC-MS/MS at the [facility]. This test was developed and its performance characteristics determined by [facility]. It has not been cleared or approved by the FDA. The laboratory is regulated under CLIA as qualified to perform high-complexity testing. This test is used for clinical purposes. Julesmigel Hollidayjas TITA LAB BLOOD ORDERABLES Final Res ult [facility] [address] [place] [address] * (ABNORMAL) CBC W/O Differential (01/26/2025 7:36 AM EST) WBC Count 8.06 3.70 - 10.30 10*3/uL LAB HEMATOLOGY METHOD 01/26/2025 8:31 AM EST [facility] RBC Count 3.41(L) 4.60 - 6.10 10*6/uL LAB HEMATOLOGY METHOD 01/26/2025 8:31 AM EST [facility] HGB 11.0(L) 13.7 - 17.5 g/dL LAB HEMATOLOGY METHOD 01/26/2025 8:31 AM EST [facility] HCT 34.9(L) 40.0 - 51.0 % LAB HEMATOLOGY METHOD 01/26/2025 8:31 AM EST [facility] Platelet Count 257 155 - 369 10*3/uL LAB HEMATOLOGY METHOD 01/26/2025 8:31 AM EST [facility] MCV 102(H) 79 - 98 fL LAB HEMATOLOGY METHOD 01/26/2025 8:31 AM EST [facility] MCH 32.3(H) 26.0 - 32.0 pg LAB HEMATOLOGY METHOD 01/26/2025 8:31 AM EST [facility] MCHC 31.5 30.7 - 35.5 g/dL LAB HEMATOLOGY METHOD 01/26/2025 8:31 AM EST [facility] RDW 20.4(H) 11.5 - 14.5 % LAB HEMATOLOGY METHOD 01/26/2025 8:31 AM EST [facility] MPV 9.1 8.8 - 12.5 fL LAB HEMATOLOGY METHOD 01/26/2025 8:31 AM EST [facility] nRBC 0.0 <=0.0 per 100 WBCs LAB HEMATOLOGY METHOD 01/26/2025 8:31 AM EST [facility] Blood Venous blood specimen / Unknown Venipuncture / Unknown 01/26/2025 7:36 AM EST 01/26/2025 8:24 AM EST us Chacha Jones APRN LAB BLOOD ORDERABLES Final Res ult [facility] [address] [place] [address] * (ABNORMAL) Comprehensive Metabolic Panel, Plasma (01/26/2025 7:36 AM EST) Glucose, Plasma 108(H) 74 - 99 mg/dL 01/26/2025 8:52 AM EST [facility] BUN, Plasma 29(H) 7 - 21 mg/dL 01/26/2025 8:52 AM EST [facility] Creatinine, Plasma 0.80 0.70 - 1.20 mg/dL 01/26/2025 8:52 AM EST [facility] BUN/Creatinine Ratio 36 01/26/2025 8:52 AM EST [facility] Sodium, Plasma 145 136 - 145 mmol/L 01/26/2025 8:52 AM EST [facility] Potassium, Plasma 3.9 3.6 - 4.9 mmol/L 01/26/2025 8:52 AM EST [facility] Chloride, Plasma 109(H) 97 - 107 mmol/L 01/26/2025 8:52 AM EST [facility] CO2, Plasma 23 22 - 29 mmol/L 01/26/2025 8:52 AM EST [facility] Anion Gap 13 6 - 16 mmol/L 01/26/2025 8:52 AM EST [facility] Total Calcium, Plasma 8.7(L) 8.9 - 10.2 mg/dL 01/26/2025 8:52 AM EST [facility] Total Protein 5.8(L) 6.3 - 7.9 g/dL 01/26/2025 8:52 AM EST [facility] Albumin, Plasma 3.3(L) 3.5 - 5.2 g/dL 01/26/2025 8:52 AM EST [facility] AST, Plasma 14 10 - 50 U/L 01/26/2025 8:52 AM EST [facility] ALT, Plasma 30 10 - 50 U/L 01/26/2025 8:52 AM EST [facility] Alkaline Phosphatase, Plasma 84 40 - 115 U/L 01/26/2025 8:52 AM EST [facility] Total Bilirubin, Plasma 2.4(H) 0.2 - 1.1 mg/dL 01/26/2025 8:52 AM EST [facility] eGFRcr 110.5 mL/min/1.7 3m*2 01/26/2025 8:52 AM EST [facility] Comment:Reported eGFRcr in m L/min/1.73m2 is based the CKD-EPI 2020 equation that does not use a race coefficient. Blood Venous blood specimen / Unknown Venipuncture / Unknown 01/26/2025 7:36 AM EST 01/26/2025 8:22 AM EST Giftikier Jones WELL HEAD PUMPER LAB BLOOD ORDERABLES Final Res ult Performing Organization Address City/[facility]/ZIP Co de Phone Number [facility] [address] [place] [address] * (ABNORMAL) Magnesium, Plasma (01/26/2025 7:36 AM EST) Magnesium, Plasma 1.7(L) 1.9 - 2.4 mg/dL 01/26/2025 8:52 AM EST [facility] Blood Venous blood specimen / Unknown Venipuncture / Unknown 01/26/2025 7:36 AM EST 01/26/2025 8:22 AM EST Hender Jones WELL HEAD PUMPER LAB BLOOD ORDERABLES Final Res ult [facility] [address] [place] [address] documented in this encounter Visit Diagnoses Diagnosis 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 Encounter for long-term (current) use of high-risk medication Encounter for long-term (current) use of other medications Aftercare following organ transplant Immunosuppression (CMS/HCC) Physical debility Moderate protein-calorie malnutrition (CMS/HCC) Biliary stricture of transplanted liver (CMS/HCC) Other secondary hypertension Anemia, unspecified type Hypomagnesemia Disorders of magnesium metabolism Benign essential tremor Essential and other specified forms of tremor documented in this encounter Additional Health Concerns Assessment Noted Time PHQ-9 Depression Total Score: 9 01/21/20 7:11 AM EST A fall risk assessment has been complete d for the patient 01/20/2025 7:12 AM EST A Body Mass Index follow-up plan has been documented for the patient 01/20/2025 3:46 PM EST documented as of this encounter Care Teams Corsage Maker Relationship Specialty Start Date End Date Param Eng DO [address] [place] [address] [place] [address] PCP - General 12/22/24 documented as of this encounter
--- OUTSIDE RECORDS SUMMARY | 2025-01-26 09:20 | XMS_ITS | Encounter Summary ---
Author Organization [facility] Address [address] [place] [address] Care Team Providers Care Mold Presser Name Role Phone Velasquez Param Augie HORTON Primary Care Provider [phone] Reason for Visit * Reason Comments Liver Txp Post-Op Immunosuppression Encounter Details Date Type Department Care Team (Late st Contact Info) Description 01/26/2025 9:20 AM EST Office Visit [facility] [address] [address] Chacha Heard APRN [address] [facility] [place] [address] Transplant-Liver- Surgery-Paul Liver replaced by transplant (Primary Dx); Encounter for long-term (current) use of high-risk medication; Aftercare following organ transplant; Immunosuppression (CMS/HCC); Physical debility; Biliary stricture of transplanted liver (CMS/HCC); Other secondary hypertension; Benign essential tremor; Anemia, unspecified type; Moderate protein-calorie malnutrition (CMS/HCC); Hypomagnesemia; Hyperbilirubinemia; Primary insomnia Social History Tobacco Use Types Packs/Day Years Used Date Smoking Tobacco: Never Passive Smoke Exposure: Current Smokeless Tobacco: Current Chew Tobacco Cessation:Ready to Q uit: Not Asked; Counseling Given: Not Answered Alcohol Use Standard Drinks/Week Comments Not Currently 0 (1 standard drink = 0.6 oz pur e alcohol) Quit 2 months ago PHQ-2 Answer Date Recorded Patient Health Questionnaire-2 Score 0 01/26/2025 PHQ-9 Answer Date Recorded Patient Health Questionnaire-9 [...] housing, medical care, and heating? Hard 01/02/2025 [facility] - Occupational [...] a long term (including now)? No 01/02/2025 [facility] Utilities Answer Date Recorded In the past 12 months has e [employer], gas, oil, or water [employer] threatened to shut off services in your [...] drink first t edgardo in the morning ([employer]ICA[employer]) to steady your nerves or to get [...] Sign Reading Time Taken Comments Blood Pressure 114/75 01/26/2025 7:51 AM EST Pulse 80 01/26/2025 7:51 AM EST Temperature 36.7 C (98.1 F) 01/26/2025 7:51 AM EST Respiratory Rate 18 01/26/2025 7:51 AM EST Oxygen Saturation 99% 01/26/2025 7:51 AM EST Inhaled Oxygen Concentration - - Weight 94 kg (207 lb 3.7 oz) 01/26/2025 7:51 AM EST Height 195.6 cm (6' 5 ) 01/26/2025 7:51 AM EST Body Mass Index 24.57 01/26/2025 7:51 AM EST documented in this encounter Functional Status * BP Answer Date of Assessment Author 114/75 01/26/2025 7:51 AM Nirmala Smith H * Temp Answer Date of Assessment Author 98.1 01/26/2025 7:51 AM Nirmala Smith H * Temp src Answer Date of Assessment Author Oral 01/26/2025 7:51 AM Nirmala Smith * Pulse Answer Date of Assessment Author 80 01/26/2025 7:51 AM Nirmala Smith H * Resp Answer Date of Assessment Author 18 01/26/2025 7:51 AM Nirmala Smith H * SpO2 Answer Date of Assessment Author 99 01/26/2025 7:51 AM Nirmala Smith H * Height Answer Date of Assessment Author 77 01/26/2025 7:51 AM Nirmala Smith H * Weight Answer Date of Assessment Author 3315.72 01/26/2025 7:51 AM Nirmala Smith H * BMI (Calculated) Answer Date of Assessment Author 24.6 01/26/2025 7:51 AM Nirmala Smith athaniel H * Percent Excess Weight Loss Answer Date of Assessment Author 0 01/26/2025 7:51 AM Nirmala Smith athaniel H * Total Weight Change Percent Answer Date of Assessment Author 2222 01/26/2025 7:51 AM GISELE Salazar, N athaniel H * Weight Change Since Preop Answer Date of Assessment Author 93.98 01/26/2025 7:51 AM Nirmala Smith athaniel H * Initial Excess Weight Answer Date of Assessment Author -94.35 01/26/2025 7:51 AM GISELE Salazar, Nirmala athaniel H * IBW in lbs (Bariatric) Answer Date of Assessment Author 208 01/26/2025 7:51 AM Nirmala Smith athaniel H * Weight Change Since Last Visit Answer Date of Assessment Author 93.98 01/26/2025 7:51 AM Nirmala Smith athaniel H * IBW in kg (Bariatric) Answer Date of Assessment Author 94.35 01/26/2025 7:51 AM Nirmala Smith athaniranulfo H * Percent of IBW Answer Date of Assessment Author 3,514.28 01/26/2025 7:51 AM Nirmala Smithaniranulfo H * EBW (kg) Answer Date of Assessment Author 3,313.05 01/26/2025 7:51 AM Nirmala Smith athaniranulfo H * EBW (lbs) Answer Date of Assessment Author 3,302.72 01/26/2025 7:51 AM Nirmala Smith athaniranulfo H * Weight Change 24 hrs Answer Date of Assessment Author 2.7 01/26/2025 7:51 AM Nirmala Smith H * Depression Screening Question Answer Date of Assessment Author Will the patient answer the depression risk questions? Yes 01/26/2025 7:55 AM Zoey Smith H * BSA (Calculated - sq m) Answer Date of Assessment Author 2.26 01/26/2025 7:51 AM Nirmala Smith H * BMI (Calculated) Answer Date of Assessment Author 24.57 01/26/2025 7:51 AM Nirmala Smithaniranulfo H * BP Location Answer Date of Assessment Author Right arm 01/26/2025 7:51 AM Nirmala Smith H * IBW/kg (Calculated) Male Answer Date of Assessment Author 89.1 01/26/2025 7:51 AM Nirmala Smith * IBW/kg (Calculated) Female Answer Date of Assessment Author 84.6 01/26/2025 7:51 AM Nirmala Smith * Restart Vitals Timer Answer Date of Assessment Author Yes 01/26/2025 7:51 AM Nirmala Smith * IBW/kg (Calculated) Answer Date of Assessment Author 89.1 01/26/2025 7:51 AM Nirmala Smith * Over the past 2 weeks, how often have you been bothered by any of the following problems? Question Answer Date of Assessment Author Little interest or pleasure in doing things Not at all 01/26/2025 7:55 AM Shawn Smith Feeling down, depressed, or hopeless Not at all 01/26/2025 7:55 AM Shawn Smith Patient Health Questionnaire -2 Score 0 01/26/2025 7:55 AM Shawn Smith * How difficult have these problems made it for you to do your work, take care of things at home, or get along with other people? Answer Date of Assessment Author Not difficult at all 01/26/2025 7:55 AM Shawn Maya * Current supplemental O2 requirements Question Answer Date of Assessment Author Oxygen Therapy None (Room air) 01/26/2025 7:53 AM Shawn Smith * Hospitalization Question Answer Date of Assessment Author Hospitalized since last clin ic visit? No 01/26/2025 7:53 AM Shawn Smith * Weight in (lb) to have BMI = 25 Answer Date of Assessment Author 210.4 01/26/2025 7:51 AM Nirmala Smith * BMI (Calculated) Answer Date of Assessment Author 24.6 01/26/2025 7:51 AM Nimrala Smith * Percent Excess Weight Loss Answer Date of Assessment Author 0 01/26/2025 7:51 AM Nirmala Smith * Weight Change Since Preop Answer Date of Assessment Author 94 01/26/2025 7:51 AM Nirmala Smith * Initial Excess Weight Answer Date of Assessment Author -94.35 01/26/2025 7:51 AM GISELE Salazar N athaniel H * IBW in kg (Bariatric) Answer Date of Assessment Author 94.35 01/26/2025 7:51 AM GISELE Salazar, N athaniel H * IBW in lb (Bariatric) Answer Date of Assessment Author 208 01/26/2025 7:51 AM GISELE Salazar, N athaniel H * Weight Change Since Last Visit Answer Date of Assessment Author 2.7 01/26/2025 7:51 AM GISELE Salazar, N athaniel H * Percent of IBW Answer Date of Assessment Author 99.63 01/26/2025 7:51 AM GISELE Salazar, N athaniel H * EBW (kg) Answer Date of Assessment Author -0.37 01/26/2025 7:51 AM GISELE Salazar N athaniel H * EBW (lb) Answer Date of Assessment Author -0.77 01/26/2025 7:51 AM GISELE Salazar, N athaniel H * Difference in Weight Since Last Visit Answer Date of Assessment Author 2.7 01/26/2025 7:51 AM GISELE Salazar N athaniel H * Temp (in Celsius) for NINILCHIK IV Answer Date of Assessment Author 36.7 01/26/2025 7:51 AM GISELE Salazar N athaniel H * IBW/kg (Calculated) Answer Date of Assessment Author 89.1 01/26/2025 7:51 AM GISELE Salazar N athaniel H * Adult Low Range Vt 6mL/kg Answer Date of Assessment Author 534.6 01/26/2025 7:51 AM GISELE Salazar N athaniel H * Adult Moderate Range Vt 8mL/kg Answer Date of Assessment Author 712.8 01/26/2025 7:51 AM GISELE Salazar, N athaniel H * Adult High Range Vt 10mL/kg Answer Date of Assessment Author 891 01/26/2025 7:51 AM GISELE Salazar N athaniel H * Pain Score Answer Date of Assessment Author 2 01/26/2025 7:53 AM GISELE Salazar N athaniel H * Vitals Timer Question Answer Date of Assessment Author Restart Vitals Timer Yes 01/26/2025 7:51 AM Shawn Barrios H * Patient Position Answer Date of Assessment Author Sitting 01/26/2025 7:51 AM Nirmala Smithel H * Pain Screening/Additional Assessments Question Answer Date of Assessment Author Pain Screening/Assessments Pain Screening 01/26/2025 7 :53 AM Shawn Smith * Pain Screening Answer Date of Assessment Author 0-10 01/26/2025 7:53 AM Nirmala Smith H * BP Answer Date of Assessment Author 114/75 01/26/2025 7:51 AM Nirmala Smith H * Temp Answer Date of Assessment Author 98.1 01/26/2025 7:51 AM Nirmala Smithaniel H * Temp src Answer Date of Assessment Author Oral 01/26/2025 7:51 AM Nirmala Smith H * Pulse Answer Date of Assessment Author 80 01/26/2025 7:51 AM Nirmala Smithel H * Resp Answer Date of Assessment Author 18 01/26/2025 7:51 AM Nirmala Smith H * SpO2 Answer Date of Assessment Author 99 01/26/2025 7:51 AM Nirmala Smithel H * Height Answer Date of Assessment Author 77 01/26/2025 7:51 AM Nirmala Smithel H * Weight Answer Date of Assessment Author 3315.72 01/26/2025 7:51 AM Nirmala Smithaniel H * BSA (Calculated - sq m) Answer Date of Assessment Author 2.26 01/26/2025 7:51 AM Nirmala Smithaniranulfo H * BMI (Calculated) Answer Date of Assessment Author 24.57 01/26/2025 7:51 AM Nirmala Smith H * BP Location Answer Date of Assessment Author Right arm 01/26/2025 7:51 AM Nirmala Smithaniel H * Restart Vitals Timer Answer Date of Assessment Author Yes 01/26/2025 7:51 AM Nirmala Smith * Over the past 2 weeks, how often have you been bothered by any of the following problems? Question Answer Date of Assessment Author Little interest or pleasure in doing things Not at all 01/26/2025 7:55 AM Shawn Smith Feeling down, depressed, or hopeless Not at all 01/26/2025 7:55 AM Shawn Smith Patient Health Questionnaire -2 Score 0 01/26/2025 7:55 AM GISELE MartinShawn * How difficult have these problems made it for you to do your work, take care of things at home, or get along with other people? Answer Date of Assessment Author Not difficult at all 01/26/2025 7:55 AM GISELE Rm josefShawn * Weight in (lb) to have BMI = 25 Answer Date of Assessment Author 210.4 01/26/2025 7:51 AM Niramla Smith H * Pain Score Answer Date of Assessment Author 2 01/26/2025 7:53 AM Nirmala Smith athaniranulfo H * Patient Position Answer Date of Assessment Author Sitting 01/26/2025 7:51 AM Nirmala Smith athaura H documented as of this encounter Mental Status * BP Answer Entry Date Author 114/75 01/26/2025 7:51 AM Nirmala Smith athaniranulfo H * Temp Answer Entry Date Author 98.1 01/26/2025 7:51 AM Nirmala Smith athaura H * Temp src Answer Entry Date Author Oral 01/26/2025 7:51 AM Nirmala Smith athaniranulfo H * Pulse Answer Entry Date Author 80 01/26/2025 7:51 AM Nirmala Smith athaniranulfo H * Resp Answer Entry Date Author 18 01/26/2025 7:51 AM Nirmala Smith athaniranulfo H * SpO2 Answer Entry Date Author 99 01/26/2025 7:51 AM Nirmala Smith athaniranulfo H * Height Answer Entry Date Author 77 01/26/2025 7:51 AM Nirmala Smith athaniranulfo H * Weight Answer Entry Date Author 3315.72 01/26/2025 7:51 AM Nirmala Smith athaniranulfo H * BMI (Calculated) Answer Entry Date Author 24.6 01/26/2025 7:51 AM Nirmala Smith athaniranulfo H * Percent Excess Weight Loss Answer Entry Date Author 0 01/26/2025 7:51 AM Nirmala Smith athaniel H * Total Weight Change Percent Answer Entry Date Author 22201/26/2025 7:51 AM Nirmala Smith athaniranulfo H * Weight Change Since Preop Answer Entry Date Author 93.98 01/26/2025 7:51 AM Nirmala Smith athaniel H * Initial Excess Weight Answer Entry Date Author -94.35 01/26/2025 7:51 AM Nirmala Smith athaniranulfo H * IBW in lbs (Bariatric) Answer Entry Date Author 208 01/26/2025 7:51 AM Nirmala Smith athaniranulfo H * Weight Change Since Last Visit Answer Entry Date Author 93.98 01/26/2025 7:51 AM Nirmala Smith athaura H * IBW in kg (Bariatric) Answer Entry Date Author 94.35 01/26/2025 7:51 AM Nirmala Smith athaniranulfo H * Percent of IBW Answer Entry Date Author 3,514.28 01/26/2025 7:51 AM Nirmala Smith athaniranulfo H * EBW (kg) Answer Entry Date Author 3,313.05 01/26/2025 7:51 AM Nirmala Smith athaniranulfo H * EBW (lbs) Answer Entry Date Author 3,302.72 01/26/2025 7:51 AM Nirmala Smith athaniranulfo H * Weight Change 24 hrs Answer Entry Date Author 2.7 01/26/2025 7:51 AM iNrmala Smith athaniranulfo H * Depression Screening Question Answer Entry Date Author Will the patient answer the depression risk questions? Yes 01/26/2025 7:55 AM Zoey Smith H * BSA (Calculated - sq m) Answer Entry Date Author 2.26 01/26/2025 7:51 AM Nirmala Smith H * BMI (Calculated) Answer Entry Date Author 24.57 01/26/2025 7:51 AM Nirmala Smith H * BP Location Answer Entry Date Author Right arm 01/26/2025 7:51 AM Nirmala Smith athaura H * IBW/kg (Calculated) Male Answer Entry Date Author 89.1 01/26/2025 7:51 AM Nirmala Smith athaniranulfo H * IBW/kg (Calculated) Female Answer Entry Date Author 84.6 01/26/2025 7:51 AM Nirmala Smith athaura H * Restart Vitals Timer Answer Entry Date Author Yes 01/26/2025 7:51 AM Nirmala Smith athaura H * IBW/kg (Calculated) Answer Entry Date Author 89.1 01/26/2025 7:51 AM Nirmala Smith H * Over the past 2 weeks, how often have you been bothered by any of the following problems? Question Answer Entry Date Author Little interest or pleasure in doing things Not at all 01/26/2025 7:55 AM Shawn Smith Feeling down, depressed, or hopeless Not at all 01/26/2025 7:55 AM Shawn Smith Patient Health Questionnaire -2 Score 0 01/26/2025 7:55 AM Shawn Smith * [facility] Calculation Answer Entry Date Author 3 01/26/2025 7:55 AM Nirmala Smith * How difficult have these problems made it for you to do your work, take care of things at home, or get along with other people? Answer Entry Date Author Not difficult at all 01/26/2025 7:55 AM Shawn Maya H * Restart Pain Assessment Timer Answer Entry Date Author Yes 01/26/2025 7:53 AM Nirmala Smith * Weight in (lb) to have BMI = 25 Answer Entry Date Author 210.4 01/26/2025 7:51 AM Nirmala Smith H * BMI (Calculated) Answer Entry Date Author 24.6 01/26/2025 7:51 AM Nirmala Smith * Percent Excess Weight Loss Answer Entry Date Author 0 01/26/2025 7:51 AM Nirmala Smith * Weight Change Since Preop Answer Entry Date Author 94 01/26/2025 7:51 AM Nirmala Smith H * Initial Excess Weight Answer Entry Date Author -94.35 01/26/2025 7:51 AM Nirmala Smith H * IBW in kg (Bariatric) Answer Entry Date Author 94.35 01/26/2025 7:51 AM Nirmala Smith * IBW in lb (Bariatric) Answer Entry Date Author 208 01/26/2025 7:51 AM Nirmala Smith H * Weight Change Since Last Visit Answer Entry Date Author 2.7 01/26/2025 7:51 AM Nirmala Smith * Percent of IBW Answer Entry Date Author 99.63 01/26/2025 7:51 AM Nirmala Smith athaniranulfo H * EBW (kg) Answer Entry Date Author -0.37 01/26/2025 7:51 AM Nirmala Smith athaniranulfo H * EBW (lb) Answer Entry Date Author -0.77 01/26/2025 7:51 AM Nirmala Smith athaniranulfo H * Difference in Weight Since Last Visit Answer Entry Date Author 2.7 01/26/2025 7:51 AM Nirmala Smith athaura H * Temp (in Celsius) for NINILCHIK IV Answer Entry Date Author 36.7 01/26/2025 7:51 AM Nirmala Smith athaniranulfo H * IBW/kg (Calculated) Answer Entry Date Author 89.1 01/26/2025 7:51 AM Nirmala Smith athaniranulfo H * Adult Low Range Vt 6mL/kg Answer Entry Date Author 534.6 01/26/2025 7:51 AM Nirmala Smith athaniranulfo H * Adult Moderate Range Vt 8mL/kg Answer Entry Date Author 712.8 01/26/2025 7:51 AM Nirmala Smith athaniel H * Adult High Range Vt 10mL/kg Answer Entry Date Author 891 01/26/2025 7:51 AM Nirmala Smith athaniranulfo H * Pain Score Answer Entry Date Author 2 01/26/2025 7:53 AM Nirmala Smith athaniranulfo H * BP Cuff Size Answer Entry Date Author Adult 01/26/2025 7:51 AM Nirmala Smith athaniranulfo H * Vitals Timer Question Answer Entry Date Author Restart Vitals Timer Yes 01/26/2025 7:51 AM Shawn Barrios H * Patient Position Answer Entry Date Author Sitting 01/26/2025 7:51 AM Nirmala Smith athaniranulfo H * Pain Screening Answer Entry Date Author 0-10 01/26/2025 7:53 AM Nirmala Smith athaniranulfo Mckee documented in this encounter Miscellaneous Notes * Patient Instructions - Danette Toledo, PharmD - 01/26/2025 9:20 AM EST Liver numbers now normalized. Decrease prednisone to 40 mg daily for the next 3 days, then 30 mg daily for the following 3 days, then stay on 20 mg daily. Kidney function stable. Anemia improving. Today in clinic we removed remaining abdominal manju; keep area clean and dry. Return to clinic on Sunday02/02/25 for follow up; please call your nurse coordinator Renee or the emergency number should any issues or concerns arise in the meantime. * Progress Notes - Chacha Heard APRN - 01/26/2025 9:20 AM EST POST LIVER TRANSPLANT CLINIC FOLLOW-UP AND IMMUNOSUPPRESSION MANAGEMENT Subjective Cesar Tay is a 45 y.o. male who presents for Immunosuppression and Liver Txp Post-Op. History of Present Illness Today I had the pleasure of seeing, Cesar Tay, 1980, for post liver transplant clinic follow-up and immunosuppression management. Cesar Tay is a pleasant 45 y.o. 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 Patient is now 23 days post liver transplant and is here for scheduled clinic follow-up.Transplant surgeon Dr. Beckford. Hospital course was significant for the following: Rising bilirubin, patient underwent ERCP 01/12: stent x1 placed into R main hepatic duct. On ursodiol 600 mg twice daily Liver biopsy 01/14 due to elevated LFTs: acute rejection with treatment effect (at least moderate inseverity) + cholangitis. Patient received methylpred IV 500 01/13-01/15 followed by PO prednisone taper. He lives in [place], [place]. Spouse's name is Patricia. He reports no fevers, nausea, vomiting, or diarrhea. His appetite is robust, and he consumes at least three Boost drinks daily, sometimes more. He maintains adequate hydration with water and other fluids. His urinary function is normal, with urine color returning to a healthier shade. His weight has been fluctuating, with a recent increase from 201 pounds on 01/20/2025 to 207 poundstoday. He reports no leg swelling but does experience excessive sweating at night. He has discontinued the use of stool softeners due to loose stools, which have since shown improvement. He is able to ambulate without the aid of a walker and demonstrates good balance. His blood pressure readings at home have been consistently in the range of 110s over 70s, with the highest recorded reading being 130/72. He does not experience any lightheadedness or dizziness upon standing. He is currently on a regimen of amlodipine 10 mg once daily and carvedilol 25 mg twice daily for blood pressure management, which was initiated post-transplant. He is currently on a prednisone taper, with a current dose of 50 mg, and plans to reduce the dose to 40 mg today. He does not monitor his blood glucose levels at home. He has a biliary stent in place, which is tentatively scheduled for removal on 03/06/2025 by endoscopy. He is not using oxycodone for pain management but does take a muscle relaxer, Robaxin, at night. He has been prescribed Requip for restless legs syndrome, which has provided some relief, although the symptoms persist intermittently. He is on Lexapro for depression, anxiety, [...] placement (Post-transplant) SOCIAL HISTORY He lives in [place]. 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 He has 5 grown children. Review of Systems: A ROS was performed and negative except as noted: See history of present illness. Body mass index is 24.57 kg/m??. Wt Readings from Last 2 Encounters: 01/26/25 94 kg (207 lb 3.7 oz) 01/20/25 91.3 kg (201 lb 4.5 oz) Vitals: 01/26/25 0751 BP: 114/75 Pulse: 80 Resp: 18 Temp: 36.7 ??C (98.1 ??F) SpO2: 99% Current Outpatient Medications Medication Instructions acetaminophen (TYLENOL) 500 mg, Oral, Every 6 hours PRN, Max 2000 mg per 24 hours. amLODIPine (NORVASC) 10 mg, Oral, Daily aspirin 81 mg, Oral, Daily carvedilol (COREG) 25 mg, Oral, 2 times daily ergocalciferol (VITAMIN D-2) 50,000 Units, Oral, Weekly, Fridays escitalopram (LEXAPRO) 10 mg, Oral, Daily fluconazole (DIFLUCAN) 200 mg, Oral, Daily magnesium oxide (MAG-OX) 400 mg, Oral, 2 times daily methocarbamol (ROBAXIN) 500 mg, Oral, 3 times [...] for 5 days, THEN 1 tablet daily. rOPINIRole (REQUIP) 0.25 mg, Oral, Nightly senna-docusate sodium (Senokot-S) 8.6-50 MG tablet 1 tablet, Oral, 2 times daily PRN sulfamethoxazole-trimethoprim (Bactrim) 400-80 MG tablet 1 tablet, Oral, Daily tacrolimus 1 MG PO capsule Take 3 capsules by mouth every morning AND 3 capsules every evening. Z94.4. transplant date 01/03/25. traZODone (DESYREL) 50 mg, Oral, Nightly ursodiol (ACTIGALL) 600 mg, Oral, 2 times daily valGANciclovir (VALCYTE) 450 mg, Oral, Daily, Do not crush or chew. Allergies[1] Physical Exam Vital signs reviewed and noted (see above) GENERAL: Appears stated age, NAD, able to get on and off of the exam table without assistance EYES: PERRL EOMI bilateral scleral mild icteric HENT: No lesions in anterior nares; no lesions in oropharynx, head atraumatic and normocephalic. Nothrush NECK: Supple. No thyromegaly or adenopathy. No JVD noted. The trachea appears midline. RESP: Symmetric expansion; no retractions. Clear to auscultation bilaterally except diminished in the bases right greater than the left. CARD: S1, S2, RRR, without murmur, rubs, or gallop. EXTREMITies: 1+ bilateral lower extremity edema. GI: No organomegaly or masses. Nontender, mild distended. BS present x 4 quadrants. ABDOMINAL INCISION: Bilateral subcostal incision with midline extension with manju in place clean, dry and intact NEURO: Awake, alert and oriented, moves all extremities, grossly intact PSYCH: Pleasant and appropriate. Results Latest Reference Range & Units 01/20/25 06:39 01/26/25 07:36 WBC 3.70 - 10.30 10*3/uL 7.02 8.06 RBC 4.60 - 6.10 10*6/uL 3.09 (L) 3.41 (L) Hemoglobin 13.7 - 17.5 g/dL 10.2 (L) 11.0 (L) Hematocrit 40.0 - 51.0 % 31.9 (L) 34.9 (L) Platelet Count 155 - 369 10*3/uL 222 257 MCV 79 - 98 fL 103 (H) 102 (H) MCH 26.0 - 32.0 pg 33.0 (H) 32.3 (H) MCHC 30.7 - 35.5 g/dL 32.0 31.5 RDW 11.5 - 14.5 % 21.2 (H) 20.4 (H) MPV 8.8 - 12.5 fL 9.6 9.1 nRBC <=0.0 per 100 WBCs 0.0 0.0 [...] Granulocyte Absolute 0.00 - 0.06 10*3/uL 0.02 Glucose 74 - 99 mg/dL 62 (L) 108 (H) Sodium 136 - 145 mmol/L 143 145 Potassium 3.6 - 4.9 mmol/L 4.2 3.9 Chloride 97 - 107 mmol/L 108 (H) 109 (H) CO2 22 - 29 mmol/L 23 23 Creatinine 0.70 - 1.20 mg/dL 0.92 0.80 Anion Gap 6 - 16 mmol/L 12 13 BUN 7 - 21 mg/dL 25 (H) 29 (H) BUN/Creatinine Ratio 27 36 EGFR mL/min/1.73m*2 103.9 110.5 Calcium 8.9 - 10.2 mg/dL 8.7 (L) 8.7 (L) Albumin 3.5 - 5.2 g/dL 3.2 (L) 3.3 (L) Total Protein 6.3 - 7.9 g/dL 5.5 (L) 5.8 (L) ALT, Plasma 10 - 50 U/L 64 (H) 30 AST, Plasma 10 - 50 U/L 25 14 Total Bilirubin, Plasma 0.2 - 1.1 mg/dL 3.4 (H) 2.4 (H) Alkaline Phosphatase 40 - 115 U/L 98 84 Magnesium 1.9 - 2.4 mg/dL 1.5 (L) 1.7 (L) GGT 8 - 61 U/L 184 (H) 106 (H) (L): Data is abnormally low (H): Data is abnormally high Laboratory Studies White blood cell count is normal. Hemoglobin is up to 11. Platelet count is normal. Red blood countis slightly low. Blood sugar is normal. Sodium is normal. Potassium is normal. Kidney function is stable. ALT was abnormal, now down to 30. AST was abnormal, now down to 14. Total bilirubin continuesto decline, now down to 2.4. Magnesium level is up to 1.7. GGT is getting better. Assessment & Plan Cesar Tay is a pleasant 45 y.o. 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 Patient is now 23 days post liver transplant and is here for scheduled clinic follow-up. Transplant surgeon Dr. Beckford. 1. Post-liver transplant status/allograft/immunosuppression management/anemia/transaminitis/liver the liver enzymes/hyperbilirubinemia. He is demonstrating excellent progress post-transplant, with no reported fevers, nausea, vomiting, or diarrhea. His appetite is robust, and he is maintaining adequate hydration. His renal function has improved, as evidenced by the normalization of his urine color. His weight has increased from 201 pounds to 207 pounds since his last visit on 01/20/2025. His blood pressure is well- controlled at 114/75. His anemia is improving, with a hemoglobin level of 11. His liver function tests have largely normalized, with a decrease in ALT from 64 to 30 and AST from 50 to 14. His total bilirubin has decreased from 3.4 to 2.4. His magnesium level has increased from 1.5 to 1.7, and his GGT is improving. He was advised to avoid lifting heavy objects and to listen to his body for any signs of overexertion. The abdominal surgical manju will be removed today. -The prednisone dosage will be reduced to 40 mg today, then decreased by 10 mg every 3 days until amaintenance dose of 20 mg is reached. His tacrolimus level will be monitored today, and any necessary adjustments will be communicated. 2. Hypertension. His blood pressure is well-controlled at 114/75 on amlodipine 10 mg once a day and carvedilol 25 mgtwice daily. He was advised to continue monitoring his blood pressure at home. If his blood pressure remains low, the amlodipine dosage will be halved. 3. Restless legs syndrome. He reports that his symptoms have improved with Requip but still come and go. He was advised that his sensitivity might be due to tacrolimus and prednisone. 4. Medication management. He is currently taking tacrolimus 3 mg twice a day and CellCept 1000 mg twice a day. He was advisedto continue these medications as prescribed. Follow-up The patient is scheduled for a follow-up visit next Sunday, 02/02. PROCEDURE Procedure: Staple removal - Procedural Discussion: Discussed the removal of manju to improve comfort and aid in the healingprocess. - Technique: Fishs Eddy were removed from the surgical site. - Biliary stricture. Rising bilirubin, patient underwent ERCP 01/12: stent x1 placed into R main hepatic duct. On ursodiol 600 mg twice daily. Repeat ERCP on March 06 tentatively. -Explant pathology: Cirrhosis, no pathologic abnormalities -Current immunosuppression regimen: CNI: IR tacrolimus (Prograf) 3 mg twice daily Antimetabolite: mycophenolate mofetil (Cellcept) 1000mg twice daily Prednisone: currently on prednisone taper 50 mg daily for 5 days, then 40 mg daily We'll follow today's level and [...] 1 month post-transplant (anticipated discontinuation date: 02/02/25). -Vitamin D deficiency: preop 25HD 16.2, ergocalciferol 50,000 units weekly started 01/09. Recommendrepeat 25HD in 8 weeks. Verbal consent was obtained to use ambient listening technology to assist in the documentation of the encounter: yes [1] Allergies Allergen Reactions Amoxicillin Hives and Rash Childhood allergy * Progress Notes - Chacha Heard APRN - 01/26/2025 9:20 AM EST Tacrolimus level came back as 7.0, no changes to current immunosuppression documented in this encounter Plan of Treatment Upcoming Encounters Date Type Department Care Team (Late st Contact Info) Description 02/17/2025 7:00 AM EST Clinical Support [facility] [address] [place] [id number] 02/17/2025 8:40 AM EST Office Visit [facility] [address] [place] [address] [facility] 03/06/2025 11:10 AM EST Appointment [facility] [address] [place] [address] Natalya Valentine MD [address] [place] [address] documented as of this encounter Results * (ABNORMAL) GGT, Plasma (02/02/2025 7:45 AM EST) GGT, Plasma 71(H) 8 - 61 U/L 02/02/2025 8:38 AM EST [facility] Blood Venous blood specimen / Unknown Venipuncture / Unknown 02/02/2025 7:45 AM EST 02/02/2025 8:12 AM EST us Chacha Heard APRN LAB BLOOD ORDERABLES Final Res ult [facility] [address] [id number] * Tacrolimus (02/02/2025 7:45 AM EST) Tacrolimus 13.3 4.0 - 17.0 ng/mL 02/02/2025 12:08 PM EST [facility] Comment: Tacrolimus therapeutic range: Initial (<3 mo.) Maintenance Kidney 8-13 ng/mL 4-8 ng/mL Liver 8-13 ng/mL 4-8 ng/mL Heart 8-15 ng/mL 7-13 ng/mL Lung;Heart/Lung 8-17 ng/mL 8-13 ng/mL Blood Venous blood specimen / Unknown Venipuncture / Unknown 02/02/2025 7:45 AM EST 02/02/2025 8:29 AM EST Narrative [facility] - 02/02/2025 12:08 PM EST Test performed by LC-MS/MS at the [facility]. This test was developed and its performance characteristics determined by [facility]. It has not been cleared or approved by the FDA. The laboratory is regulated under CLIA as qualified to perform high-complexity testing. This test is used for clinical purposes. Test performed by LC-MS/MS at the [facility]. This test was developed and its performance characteristics determined by [facility]. It has not been cleared or approved by the FDA. The laboratory is regulated under CLIA as qualified to perform high-complexity testing. This test is used for clinical purposes. Chacha Heard APRN LAB BLOOD ORDERABLES Final Res ult [facility] [address] [place] [address] * (ABNORMAL) CBC W/O Differential (02/02/2025 7:45 AM EST) WBC Count 6.34 3.70 - 10.30 10*3/uL LAB HEMATOLOGY METHOD 02/02/2025 8:38 AM EST [facility] RBC Count 3.82(L) 4.60 - 6.10 10*6/uL LAB HEMATOLOGY METHOD 02/02/2025 8:38 AM EST [facility] HGB 12.3(L) 13.7 - 17.5 g/dL LAB HEMATOLOGY METHOD 02/02/2025 8:38 AM EST [facility] HCT 38.0(L) 40.0 - 51.0 % LAB HEMATOLOGY METHOD 02/02/2025 8:38 AM EST [facility] Platelet Count 189 155 - 369 10*3/uL LAB HEMATOLOGY METHOD 02/02/2025 8:38 AM EST [facility] MCV 100(H) 79 - 98 fL LAB HEMATOLOGY METHOD 02/02/2025 8:38 AM EST [facility] MCH 32.2(H) 26.0 - 32.0 pg LAB HEMATOLOGY METHOD 02/02/2025 8:38 AM EST [facility] MCHC 32.4 30.7 - 35.5 g/dL LAB HEMATOLOGY METHOD 02/02/2025 8:38 AM EST [facility] RDW 17.8(H) 11.5 - 14.5 % LAB HEMATOLOGY METHOD 02/02/2025 8:38 AM EST [facility] MPV 9.3 8.8 - 12.5 fL LAB HEMATOLOGY METHOD 02/02/2025 8:38 AM EST [facility] nRBC 0.0 <=0.0 per 100 WBCs LAB HEMATOLOGY METHOD 02/02/2025 8:38 AM EST [facility] Blood Venous blood specimen / Unknown Venipuncture / Unknown 02/02/2025 7:45 AM EST 02/02/2025 8:29 AM EST Chacha Heard APRN LAB BLOOD ORDERABLES Final Res ult [facility] [address] [place] [address] * (ABNORMAL) Comprehensive Metabolic Panel, Plasma (02/02/2025 7:45 AM EST) Glucose, Plasma 63(L) 74 - 99 mg/dL 02/02/2025 8:38 AM EST [facility] BUN, Plasma 34(H) 7 - 21 mg/dL 02/02/2025 8:38 AM EST [facility] Creatinine, Plasma 1.12 0.70 - 1.20 mg/dL 02/02/2025 8:38 AM EST [facility] BUN/Creatinine Ratio 30 02/02/2025 8:38 AM EST [facility] Sodium, Plasma 139 136 - 145 mmol/L 02/02/2025 8:38 AM EST [facility] Potassium, Plasma 4.2 3.6 - 4.9 mmol/L 02/02/2025 8:38 AM EST [facility] Chloride, Plasma 106 97 - 107 mmol/L 02/02/2025 8:38 AM EST [facility] CO2, Plasma 23 22 - 29 mmol/L 02/02/2025 8:38 AM EST [facility] Anion Gap 10 6 - 16 mmol/L 02/02/2025 8:38 AM EST [facility] Total Calcium, Plasma 9.0 8.9 - 10.2 mg/dL 02/02/2025 8:38 AM EST [facility] Total Protein 6.1(L) 6.3 - 7.9 g/dL 02/02/2025 8:38 AM EST [facility] Albumin, Plasma 3.8 3.5 - 5.2 g/dL 02/02/2025 8:38 AM EST [facility] AST, Plasma 14 10 - 50 U/L 02/02/2025 8:38 AM EST [facility] ALT, Plasma 22 10 - 50 U/L 02/02/2025 8:38 AM EST [facility] Alkaline Phosphatase, Plasma 83 40 - 115 U/L 02/02/2025 8:38 AM EST [facility] Total Bilirubin, Plasma 2.1(H) 0.2 - 1.1 mg/dL 02/02/2025 8:38 AM EST [facility] eGFRcr 82.0 mL/min/1.7 3m*2 02/02/2025 8:38 AM EST [facility] Comment:Reported eGFRcr in m L/min/1.73m2 is based the CKD-EPI 2020 equation that does not use a race coefficient. Blood Venous blood specimen / Unknown Venipuncture / Unknown 02/02/2025 7:45 AM EST 02/02/2025 8:12 AM EST us Chacha Heard APRN LAB BLOOD ORDERABLES Final Res ult Performing Organization Address City/State/[facility] Co de Phone Number [facility] [address] [place] [address] * (ABNORMAL) Magnesium, Plasma (02/02/2025 7:45 AM EST) Magnesium, Plasma 1.8(L) 1.9 - 2.4 mg/dL 02/02/2025 8:38 AM EST [facility] Blood Venous blood specimen / Unknown Venipuncture / Unknown 02/02/2025 7:45 AM EST 02/02/2025 8:12 AM EST Chacha Heard DE[employer] CLEARANCE COORDINATOR LAB BLOOD ORDERABLES Final Res ult [facility] [address] [place] [address] documented in this encounter Visit Diagnoses Diagnosis 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 Encounter for long-term (current) use of high-risk medication Encounter for long-term (current) use of other medications Aftercare following organ transplant Immunosuppression (CMS/HCC) Physical debility Biliary stricture of transplanted liver (CMS/HCC) Other secondary hypertension Benign essential tremor Essential and other specified forms of tremor Anemia, unspecified type Moderate protein-calorie malnutrition (CMS/HCC) Hypomagnesemia Disorders of magnesium metabolism Hyperbilirubinemia Disorders of bilirubin excretion Primary insomnia Persistent disorder of initiating or maintaining sleep documented in this encounter Additional Health Concerns Assessment Noted Time PHQ-9 Depression Total Score: 9 01/21/20 25 7:11 AM EST A fall risk assessment has been complete d for the patient 01/26/2025 7:55 AM EST A Body Mass Index follow-up plan has been documented for the patient 01/26/2025 12:12 PM EST documented as of this encounter Care Teams Mold Presser Relationship Specialty Start Date End Date Param Eng DO [address] [place] [address] [place] [id number] PCP - General 12/22/24 documented as of this encounter
--- OUTSIDE RECORDS SUMMARY | 2025-02-02 09:20 | XMS_ITS | Encounter Summary ---
Author Organization [facility] Address [address] [place] [address] Care Team Providers Care Network Strategist Name Role Phone Velasquez Param Augie HORTON Primary Care Provider [phone] Reason for Visit * Reason Comments Immunosuppression Liver Txp Post-Op Encounter Details Date Type Department Care Team (Late st Contact Info) Description 02/02/2025 9:20 AM EST Office Visit [facility] [address] [address] Chacha Heard APRN [address] [address] Transplant-Liver- Surgery-Paul Liver replaced by transplant (Primary Dx); Encounter for long-term (current) use of high-risk medication; Immunosuppression (CMS/HCC); Aftercare following organ transplant; Other secondary hypertension; Benign essential tremor; Biliary stricture of transplanted liver (CMS/HCC); Anemia, unspecified type; Hypomagnesemia; Hyperbilirubinemia; Ear infection Social History Tobacco Use Types Packs/Day Years [...] any clubs o r organizations such as samaritan groups, unions, fraternal or athletic groups, or [...] medical care, and heating? Hard 01/02/2025 [facility] - Occupational [...] any time in the past 12 m [facility], were you homeless or living in a nursing home (including now)? 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 your nerves or to get [...] Sign Reading Time Taken Comments Blood Pressure 131/83 02/02/2025 8:00 AM EST Pulse 72 02/02/2025 8:00 AM EST Temperature 36.6 C (97.9 F) 02/02/2025 8:00 AM EST Respiratory Rate 16 02/02/2025 8:00 AM EST Oxygen Saturation 100% 02/02/2025 8:00 AM EST Inhaled Oxygen Concentration - - Weight 91.4 kg (201 lb 8 oz) 02/02/2025 8:00 AM EST Height 188 cm (6' 2 ) 02/02/2025 8:00 AM EST Body Mass Index 25.87 02/02/2025 8:00 AM EST documented in this encounter Functional Status * BP Answer Date of Assessment Author 131/83 02/02/2025 8:00 AM EST [place], Ca ndee * Temp Answer Date of Assessment Author 97.9 02/02/2025 8:00 AM EST [place], Ca ndee * Pulse Answer Date of Assessment Author 72 02/02/2025 8:00 AM EST [place], Ca ndee * Resp Answer Date of Assessment Author 16 02/02/2025 8:00 AM EST [place], Ca ndee * SpO2 Answer Date of Assessment Author 100 02/02/2025 8:00 AM EST [place], Ca ndee * Height Answer Date of Assessment Author 74 02/02/2025 8:00 AM EST [place], Ca ndee * Weight Answer Date of Assessment Author 3224.01 02/02/2025 8:00 AM EST [place], Ca ndee * BMI (Calculated) Answer Date of Assessment Author 25.9 02/02/2025 8:00 AM EST [place], Ca ndee * Percent Excess Weight Loss Answer Date of Assessment Author 0 02/02/2025 8:00 AM EST [place], Ca ndee * Total Weight Change Percent Answer Date of Assessment Author 222102/02/2025 8:00 AM EST [place], Ca ndee * Weight Change Since Preop Answer Date of Assessment Author 91.38 02/02/2025 8:00 AM EST [place], Ca ndee * Initial Excess Weight Answer Date of Assessment Author -86.18 02/02/2025 8:00 AM EST [place], Ca ndee * IBW in lbs (Bariatric) Answer Date of Assessment Author 190 02/02/2025 8:00 AM EST [place], Ca ndee * Weight Change Since Last Visit Answer Date of Assessment Author 91.38 02/02/2025 8:00 AM EST [place], Ca ndee * IBW in kg (Bariatric) Answer Date of Assessment Author 86.18 02/02/2025 8:00 AM EST [place], Ca ndee * Percent of IBW Answer Date of Assessment Author 3,741.02 02/02/2025 8:00 AM EST [place], Ca ndee * EBW (kg) Answer Date of Assessment Author 3,221.57 02/02/2025 8:00 AM EST [place], Ca ndee * EBW (lbs) Answer Date of Assessment Author 3,212.14 02/02/2025 8:00 AM EST T[place], Ca ndee * Weight Change 24 hrs Answer Date of Assessment Author -2.6 02/02/2025 8:00 AM EST T[place], Ca ndee * Depression Screening Question Answer Date of Assessment Author Will the patient answer the depression risk questions? Yes 02/02/2025 8:00 AM EST Tuttle, Eleanor * BSA (Calculated - sq m) Answer Date of Assessment Author 2.18 02/02/2025 8:00 AM EST [place], Ca ndee * BMI (Calculated) Answer Date of Assessment Author 25.86 02/02/2025 8:00 AM EST Tuttle, Ca ndee * IBW/kg (Calculated) Male Answer Date of Assessment Author 82.2 02/02/2025 8:00 AM EST Tuttle, Ca ndee * IBW/kg (Calculated) Female Answer Date of Assessment Author 77.7 02/02/2025 8:00 AM EST T[place], Ca ndee * Restart Vitals Timer Answer Date of Assessment Author Yes 02/02/2025 8:00 AM EST Tuttle, Ca ndee * IBW/kg (Calculated) Answer Date of Assessment Author 82.2 02/02/2025 8:00 AM EST [place], Ca ndee * Over the past 2 weeks, how often have you been bothered by any of the following problems? Question Answer Date of Assessment Author Little interest or pleasure in doing things Not at all 02/02/2025 8:00 AM EST Tuttle, Eleanor Feeling down, depressed, or hopeless Not at all 01/13 8:00 AM EST Tuttle, Eleanor Patient Health Questionnaire-2 Score 0 01/13 8:00 AM EST Tuttle, Eleanor * Current supplemental O2 requirements Question Answer Date of Assessment Author Oxygen Therapy None (Room air) 02/02/2025 8:00 AM EST Tuttle, Eleanor * Hospitalization Question Answer Date of Assessment Author Hospitalized since last clinic visit? No 8:00 AM EST Tuttle, Eleanor * Weight in (lb) to have BMI = 25 Answer Date of Assessment Author 194.3 02/02/2025 8:00 AM EST Tuttle, Ca ndee * BMI (Calculated) Answer Date of Assessment Author 25.9 02/02/2025 8:00 AM EST Tuttle, Ca ndee * Percent Excess Weight Loss Answer Date of Assessment Author 0 02/02/2025 8:00 AM EST Tuttle, Ca ndee * Weight Change Since Preop Answer Date of Assessment Author 91.4 02/02/2025 8:00 AM EST [place], Ca ndee * Initial Excess Weight Answer Date of Assessment Author -86.18 02/02/2025 8:00 AM EST T[place], Ca ndee * IBW in kg (Bariatric) Answer Date of Assessment Author 86.18 02/02/2025 8:00 AM EST Tuttle, Ca ndee * IBW in lb (Bariatric) Answer Date of Assessment Author 190 02/02/2025 8:00 AM EST T[place], Ca ndee * Weight Change Since Last Visit Answer Date of Assessment Author -2.6 02/02/2025 8:00 AM EST Tuttle, Ca ndee * Percent of IBW Answer Date of Assessment Author 106.05 02/02/2025 8:00 AM EST T[place], Ca ndee * EBW (kg) Answer Date of Assessment Author 5.2 02/02/2025 8:00 AM EST Tuttle, Ca ndee * EBW (lb) Answer Date of Assessment Author 11.5 02/02/2025 8:00 AM EST Tuttle, Ca ndee * Difference in Weight Since Last Visit Answer Date of Assessment Author -2.6 02/02/2025 8:00 AM EST T[place], Ca ndee * Temp (in Celsius) for WICHITA IV Answer Date of Assessment Author 36.6 02/02/2025 8:00 AM EST Tuttle, Ca ndee * IBW/kg (Calculated) Answer Date of Assessment Author 82.2 02/02/2025 8:00 AM EST Tuttle, Ca ndee * Adult Low Range Vt 6mL/kg Answer Date of Assessment Author 493.2 02/02/2025 8:00 AM EST Tuttle, Ca ndee * Adult Moderate Range Vt 8mL/kg Answer Date of Assessment Author 657.6 02/02/2025 8:00 AM EST T[place], Ca ndee * Adult High Range Vt 10mL/kg Answer Date of Assessment Author 822 02/02/2025 8:00 AM EST T[place], Ca ndee * Vitals Timer Question Answer Date of Assessment Author Restart Vitals Timer Yes 02/02/2025 8:[address] [place]uttle, Eleanor * BP Answer Date of Assessment Author 131/83 02/02/2025 8:00 AM EST T[place], Ca ndee * Temp Answer Date of Assessment Author 97.9 02/02/2025 8:00 AM EST T[place], Ca ndee * Pulse Answer Date of Assessment Author 72 02/02/2025 8:00 AM EST [place], Ca ndee * Resp Answer Date of Assessment Author 16 02/02/2025 8:00 AM EST [place], Ca ndee * SpO2 Answer Date of Assessment Author 100 02/02/2025 8:00 AM EST T[place], Ca ndee * Height Answer Date of Assessment Author 74 02/02/2025 8:00 AM EST T[place], Ca ndee * Weight Answer Date of Assessment Author 3224.01 02/02/2025 8:00 AM EST Tuttle, Ca ndee * BSA (Calculated - sq m) Answer Date of Assessment Author 2.18 02/02/2025 8:00 AM EST T[place], Ca ndee * BMI (Calculated) Answer Date of Assessment Author 25.86 02/02/2025 8:00 AM EST Tuttle, C fabio * Restart Vitals Timer Answer Date of Assessment Author Yes 02/02/2025 8:00 AM EST [place], Ca ndee * Over the past 2 weeks, how often have you been bothered by any of the following problems? Question Answer Date of Assessment Author Little interest or pleasure in doing things Not at all 02/02/2025 8:00 AM EST Tuttle, Eleanor Feeling down, depressed, or hopeless Not at all 01/13 8:00 AM EST Tuttle, Eleanor Patient Health Questionnaire-2 Score 0 01/13 8:00 AM EST Tuttle, Eleanor * Weight in (lb) to have BMI = 25 Answer Date of Assessment Author 194.3 02/02/2025 8:00 AM EST [place], Ca ndee documented as of this encounter Mental Status * BP Answer Entry Date Author 131/83 02/02/2025 8:00 AM EST [place], Ca ndee * Temp Answer Entry Date Author 97.9 02/02/2025 8:00 AM EST [place], Ca ndee * Pulse Answer Entry Date Author 72 02/02/2025 8:00 AM EST [place], Ca ndee * Resp Answer Entry Date Author 16 02/02/2025 8:00 AM EST [place], Ca ndee * SpO2 Answer Entry Date Author 100 02/02/2025 8:00 AM EST [place], Ca ndee * Height Answer Entry Date Author 74 02/02/2025 8:00 AM EST [place], Ca ndee * Weight Answer Entry Date Author 3224.01 02/02/2025 8:00 AM EST [place], Ca ndee * BMI (Calculated) Answer Entry Date Author 25.9 02/02/2025 8:00 AM EST [place], Ca ndee * Percent Excess Weight Loss Answer Entry Date Author 0 02/02/2025 8:00 AM EST [place], Ca ndee * Total Weight Change Percent Answer Entry Date Author 222102/02/2025 8:00 AM EST [place], Ca ndee * Weight Change Since Preop Answer Entry Date Author 91.38 02/02/2025 8:00 AM EST [place], Ca ndee * Initial Excess Weight Answer Entry Date Author -86.18 02/02/2025 8:00 AM EST [place], Ca ndee * IBW in lbs (Bariatric) Answer Entry Date Author 190 02/02/2025 8:00 AM EST [place], Ca ndee * Weight Change Since Last Visit Answer Entry Date Author 91.38 02/02/2025 8:00 AM EST [place], Ca ndee * IBW in kg (Bariatric) Answer Entry Date Author 86.18 02/02/2025 8:00 AM EST [place], Ca ndee * Percent of IBW Answer Entry Date Author 3,741.02 02/02/2025 8:00 AM EST [place], Ca ndee * EBW (kg) Answer Entry Date Author 3,221.57 02/02/2025 8:00 AM EST T[place], Ca ndee * EBW (lbs) Answer Entry Date Author 3,212.14 02/02/2025 8:00 AM EST [place], Ca ndee * Weight Change 24 hrs Answer Entry Date Author -2.6 02/02/2025 8:00 AM EST [place], Ca ndee * Depression Screening Question Answer Entry Date Author Will the patient answer the depression risk questions? Yes 02/02/2025 8:00 AM EST Tuttle, Eleanor * BSA (Calculated - sq m) Answer Entry Date Author 2.18 02/02/2025 8:00 AM EST [place], Ca ndee * BMI (Calculated) Answer Entry Date Author 25.86 02/02/2025 8:00 AM EST [place], Ca ndee * IBW/kg (Calculated) Male Answer Entry Date Author 82.2 02/02/2025 8:00 AM EST [place], Ca ndee * IBW/kg (Calculated) Female Answer Entry Date Author 77.7 02/02/2025 8:00 AM EST [place], Ca ndee * Restart Vitals Timer Answer Entry Date Author Yes 02/02/2025 8:00 AM EST [place], Ca ndee * IBW/kg (Calculated) Answer Entry Date Author 82.2 02/02/2025 8:00 AM EST [place], Ca ndee * Over the past 2 weeks, how often have you been bothered by any of the following problems? Question Answer Entry Date Author Little interest or pleasure in doing things Not at all 02/02/2025 8:00 AM EST Tuttle, Eleanor Feeling down, depressed, or hopeless Not at all 01/13 8:00 AM EST Tuttle, Eleanor Patient Health Questionnaire-2 Score 0 01/13 8:00 AM EST Tuttle, Eleanor * [facility] Cal[facility] Answer Entry Date Author 3 02/02/2025 8:00 AM EST [place], Ca ndee * Weight in (lb) to have BMI = 25 Answer Entry Date Author 194.3 02/02/2025 8:00 AM EST [place], Ca ndee * BMI (Calculated) Answer Entry Date Author 25.9 02/02/2025 8:00 AM EST [place], Ca ndee * Percent Excess Weight Loss Answer Entry Date Author 0 02/02/2025 8:00 AM EST [place], Ca ndee * Weight Change Since Preop Answer Entry Date Author 91.4 02/02/2025 8:00 AM EST [place], Ca ndee * Initial Excess Weight Answer Entry Date Author -86.18 02/02/2025 8:00 AM EST [place], Ca ndee * IBW in kg (Bariatric) Answer Entry Date Author 86.18 02/02/2025 8:00 AM EST [place], Ca ndee * IBW in lb (Bariatric) Answer Entry Date Author 190 02/02/2025 8:00 AM EST [place], Ca ndee * Weight Change Since Last Visit Answer Entry Date Author -2.6 02/02/2025 8:00 AM EST [place], Ca ndee * Percent of IBW Answer Entry Date Author 106.05 02/02/2025 8:00 AM EST [place], Ca ndee * EBW (kg) Answer Entry Date Author 5.2 02/02/2025 8:00 AM EST [place], Ca ndee * EBW (lb) Answer Entry Date Author 11.5 02/02/2025 8:00 AM EST T[place], Ca ndee * Difference in Weight Since Last Visit Answer Entry Date Author -2.6 02/02/2025 8:00 AM EST [place], Ca ndee * Temp (in Celsius) for WICHITA IV Answer Entry Date Author 36.6 02/02/2025 8:00 AM EST [place], Ca ndee * IBW/kg (Calculated) Answer Entry Date Author 82.2 02/02/2025 8:00 AM EST T[place], Ca ndee * Adult Low Range Vt 6mL/kg Answer Entry Date Author 493.2 02/02/2025 8:00 AM EST T[place], Ca ndee * Adult Moderate Range Vt 8mL/kg Answer Entry Date Author 657.6 02/02/2025 8:00 AM EST T[place], Ca ndee * Adult High Range Vt 10mL/kg Answer Entry Date Author 822 02/02/2025 8:00 AM EST [place], Ca ndee * Vitals Timer Question Answer Entry Date Author Restart Vitals Timer Yes 02/02/2025 8:[address] Eleanor Tuttle documented in this encounter Miscellaneous Notes * Clinician Note - Danette Toledo PharmD - 02/02/2025 9:20 AM EST Transplant Pharmacist completed medication reconciliation and collaborated with multidisciplinary team during clinic visit. * Patient Instructions - Chacha Heard APRN - 02/02/2025 9:20 AM EST Liver numbers now normalized. Decrease prednisone to 10 mg daily. Kidney function stable. Anemia improving. Stop fluconazole. Removed from your med list. Will call this afternoon with any changes to your tacrolimus dose. OK to increase ropinirole (Requip) dose to 0.5 mg at night for restless legs. Will send a prescription for ear drops to your local pharmacy later today. Repeat labs locally in 1 week and have results faxed to our transplant center for review. Return to clinic in ~2 weeks for follow up. * Addendum Note - Chacha Heard APRN - 02/02/2025 9:20 AM ESTAddended by: CHACHA HEARD on: 02/03/2025 06:49 AM Modules accepted: Orders * Progress Notes - Chacha Heard APRN - 02/02/2025 9:20 AM EST POST LIVER TRANSPLANT CLINIC [...] to alcohol associated cirrhosis. Patient is now 30 days post liver transplant and is here for scheduled clinic follow-up. Transplant surgeon Dr. Beckford. Hospital course was significant for the following: Rising bilirubin, patient underwent ERCP 01/12: stent x1 placed into R main hepatic duct. On ursodiol 600 mg twice daily Liver biopsy 01/14 due to elevated LFTs: acute rejection with treatment effect (at least moderate inseverity) + cholangitis. Patient received methylpred IV 500 01/13-01/15 followed by PO prednisone taper. He lives in [place], [place]. Spouse's name is Patricia. He reports feeling well overall. His appetite remains robust, although he typically skips breakfast. He maintains adequate hydration and reports normal urinary and bowel functions. He experiences occasional abdominal pain, which he attributes to ongoing healing processes. He also reports soreness across his abdomen and intermittent burning sensations in the right lower quadrant, particularly whenmoving in certain ways. Despite these symptoms, he has not required any analgesics. He has lost 6 pounds since his last visit. He supplements his diet with Boost protein drinks, consuming at least three daily. His blood pressure readings at home are consistent with those recorded in the clinic today, with systolic values ranging from the 110s to 120s and diastolic values in the 70s. His heart rate typically falls within the 70s to 80s range. He did not have hypertension prior to his transplant but notes that his systolic blood pressure was elevated during periods of illness. He is currently on amlodipine 10 mg once daily and carvedilol 25 mg twice daily. He reports a sensation of cold chills in his legs, which he describes as less severe than previous episodes of jerking movements. He occasionally experiences uncontrollable movements when lifting objects, such as plates, a few hours after medication administration. His has observed mild jerking movements during sleep, but these are less pronounced than before. He reports no edema in his lower extremities. He reports a sensation of clogging in his ears and nose, which he believes is causing changes in his voice. This symptom began prior to his surgery and has persisted since. He also reports a constantleakage from his ears, which he describes as waxy in nature. He does not experience any itching in his ears. PAST MEDICAL HISTORY: - Alcohol-associated cirrhosis (2024) - Depression - Anxiety - PTSD - Hypertension - Sleep disturbances - Neuropathy PAST SURGICAL HISTORY: - Liver transplant (01/03/2025) - ERCP with stent placement (Post-transplant) SOCIAL HISTORY He lives in [place]. 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 He has 5 grown children. Review of Systems: A ROS was performed and negative except as noted: See history of present illness. Body mass index is 25.87 kg/m??. Wt Readings from Last 2 Encounters: 02/02/25 91.4 kg (201 lb 8 oz) 01/26/25 94 kg (207 lb 3.7 oz) Vitals: 02/02/25 0800 BP: 131/83 Pulse: 72 Resp: 16 Temp: 36.6 ??C (97.9 ??F) SpO2: 100% Current Outpatient Medications Medication Instructions acetaminophen (TYLENOL) 500 mg, Oral, Every 6 hours PRN, Max 2000 mg per 24 hours. amLODIPine (NORVASC) 10 mg, Oral, Daily aspirin 81 mg, Oral, Daily carvedilol (COREG) 25 mg, Oral, 2 times daily ergocalciferol (VITAMIN D-2) 50,000 Units, Oral, Weekly, Fridays escitalopram (LEXAPRO) 10 mg, Oral, Daily, See PCP for refills/managment ferrous sulfate 324 mg, Oral, Daily with breakfast, Do not crush, chew, or split. fluconazole (DIFLUCAN) 200 mg, Oral, Daily magnesium [...] split. predniSONE (Deltasone) 10 MG tablet Take 4 tablets by mouth daily for 3 days, THEN 3 tablets daily for 3 days, THEN 2 tablets daily. rOPINIRole (REQUIP) 0.25 mg, Oral, Nightly sulfamethoxazole-trimethoprim (Bactrim) 400-80 MG tablet 1 tablet, Oral, Daily tacrolimus 1 MG PO capsule Take 3 capsules by mouth every morning AND 3 capsules every evening. Z94.4. transplant date 01/03/25. traZODone (DESYREL) 50 mg, Oral, Nightly, See PCP for refills/management ursodiol (ACTIGALL) 600 mg, Oral, 2 times daily valGANciclovir (VALCYTE) 450 mg, Oral, Daily, Do not crush or chew. Allergies[1] Physical Exam Vital signs reviewed and noted (see above) GENERAL: Appears stated age, NAD, able to get on and off of the exam table without assistance EYES: PERRL EOMI scleral anicteria. HENT: No lesions in anterior nares; no lesions in oropharynx, head atraumatic and normocephalic. Nothrush. Left ear tender on examination flaky skin with discoloration inflamed. NECK: Supple. No thyromegaly or adenopathy. No JVD noted. The trachea appears midline. RESP: Symmetric expansion; no retractions. Clear to auscultation bilaterally. CARD: S1, S2, RRR, without murmur, rubs, or gallop. EXTREMITies: No lower extremity edema. GI: No organomegaly or masses. Nontender, mild distended. BS present x 4 quadrants. ABDOMINAL INCISION: Bilateral subcostal incision with midline extension healing well. NEURO: Awake, alert and oriented, moves all extremities, grossly intact PSYCH: Pleasant and appropriate. Results Latest Reference Range & Units 01/26/25 07:36 02/02/25 07:45 WBC 3.70 - 10.30 10*3/uL 8.06 6.34 RBC 4.60 - 6.10 10*6/uL 3.41 (L) 3.82 (L) Hemoglobin 13.7 - 17.5 g/dL 11.0 (L) 12.3 (L) Hematocrit 40.0 - 51.0 % 34.9 (L) 38.0 (L) Platelet Count 155 - 369 10*3/uL 257 189 MCV 79 - 98 fL 102 (H) 100 (H) MCH 26.0 - 32.0 pg 32.3 (H) 32.2 (H) MCHC 30.7 - 35.5 g/dL 31.5 32.4 RDW 11.5 - 14.5 % 20.4 (H) 17.8 (H) MPV 8.8 - 12.5 fL 9.1 9.3 nRBC <=0.0 per 100 WBCs 0.0 0.0 Glucose 74 - 99 mg/dL 108 (H) 63 (L) Sodium 136 - 145 mmol/L 145 139 Potassium 3.6 - 4.9 mmol/L 3.9 4.2 Chloride 97 - 107 mmol/L 109 (H) 106 CO2 22 - 29 mmol/L 23 23 Creatinine 0.70 - 1.20 mg/dL 0.80 1.12 Anion Gap 6 - 16 mmol/L 13 10 BUN 7 - 21 mg/dL 29 (H) 34 (H) BUN/Creatinine Ratio 36 30 EGFR mL/min/1.73m*2 110.5 82.0 Calcium 8.9 - 10.2 mg/dL 8.7 (L) 9.0 Albumin 3.5 - 5.2 g/dL 3.3 (L) 3.8 Total Protein 6.3 - 7.9 g/dL 5.8 (L) 6.1 (L) ALT, Plasma 10 - 50 U/L 30 22 AST, Plasma 10 - 50 U/L 14 14 Total Bilirubin, Plasma 0.2 - 1.1 mg/dL 2.4 (H) 2.1 (H) Alkaline Phosphatase 40 - 115 U/L 84 83 Magnesium 1.9 - 2.4 mg/dL 1.7 (L) 1.8 (L) GGT 8 - 61 U/L 106 (H) 71 (H) (L): Data is abnormally low (H): Data is abnormally high Laboratory Studies Liver numbers have improved. Magnesium level is slightly low. Kidney function is normal. Blood sugar is slightly low at 63. Potassium and sodium levels are normal. Bilirubin is down to 2.9. Assessment & Plan 1. Post-transplant follow-up/allograft/immunosuppression management/hypo magnesemia/hypovolemia/anemia. His hepatic function has shown significant improvement, with liver enzymes now within the normal range. His weight has decreased by 6 pounds since the last visit. His magnesium levels are slightly below the normal range, but renal function remains satisfactory. Blood glucose levels are marginally low at 63, while potassium and sodium levels are within normal limits. Bilirubin levels have been gradually decreasing, currently at 2.9. Anemia is nearly resolved. -The dosage of prednisone will be reduced to 10 mg daily. -Fluconazole will be discontinued today. -Laboratory tests will be conducted on Sunday, and he is advised to inform his nurse coordinator ofthe results. 2. Hypertension. His blood pressure readings have been consistently within the 110s to 120s over 70s range, with a heart rate in the 70s to 80s range. The dosage of amlodipine will be reduced from 10 mg to 5 mg daily. [facility] 3. Ear infection. He presents with a fungal infection in the left ear, which may require antifungal treatment. Eardrops can be prescribed for both ears, but primarily for the left ear. Unfortunately, we do not have the proper equipment at this clinic to remove debris to confirm either bacterial or fungal infection. We will have patient go to his PCP for proper assessment and treatment. 4. Tremors. His tremors have shown improvement, likely due to enhanced nutrition and stable medication levels. If there is no further improvement in his condition over the next few weeks, consideration will be given to switching him to a once-daily tacrolimus regimen. Follow-up The patient will follow up in 2 weeks, however patient will repeat labs locally on Sunday and have them fax to our center for review.. Verbal consent was obtained to use ambient listening technology to assist in the documentation of the encounter: yes [1] Allergies Allergen Reactions Amoxicillin Hives and Rash Childhood allergy * Progress Notes - Chacha Heard APRN - 02/02/2025 9:20 AM EST Tacrolimus level came back as 13.3, Diflucan stopped today in clinic. No changes to current immunosuppression, however patient is going to repeat labs on Sunday locally. Have patient see his PCP to check his ears to rule out fungal infection as I do not have the properequipment in the clinic to remove debris first on his left ear to determine if it is bacterial or fungal for proper treatment. documented in this encounter Plan of Treatment Upcoming Encounters Date Type Department Care Team (Late st Contact Info) Description 02/17/2025 7:00 AM EST Clinical Support [facility] [address] [place] [address] 02/17/2025 8:40 AM EST Office Visit [facility] [address] [place] [address] Xhmcrtaltt-[id number]-X urgery-Paul 03/06/2025 11:10 AM EST Appointment [facility] [address] [place] [id number] Natalya Valentine MD [address] [place] [address] Scheduled Orders Name Type Priority Associated Diagnoses Orde r Schedule Magnesium, Plasma Lab Routine Liver replaced by transplant Encounter for long-term (current) use of high-risk medication Immunosuppression (CMS/HCC) Expected: 02/17/2025, Expires: 08/07/2026 Comprehensive Metabolic Panel, Plasma Lab Routine Liver replaced by transplant Encounter for long-term (current) use of high-risk medication Immunosuppression (CMS/HCC) Expected: 02/17/2025, Expires: 08/07/2026 CBC W/O Differential Lab Routine Liver replaced by transplant Encounter for long-term (current) use of high-risk medication Immunosuppression (CMS/HCC) Expected: 02/17/2025, Expires: 08/07/2026 Tacrolimus Lab Routine Liver replaced by transplant Encounter for long-term (current) use of high-risk medication Immunosuppression (CMS/HCC) Expected: 02/17/2025, Expires: 08/07/2026 GGT, Plasma Lab Routine Liver replaced by transplant Encounter for long-term (current) use of high-risk medication Immunosuppression (CMS/HCC) Expected: 02/17/2025, Expires: 08/07/2026 documented as of this encounter Visit Diagnoses Diagnosis 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 Encounter for long-term (current) use of high-risk medication Encounter for long-term (current) use of other medications Immunosuppression (CMS/HCC) Aftercare following organ transplant Other secondary hypertension Benign essential tremor Essential and other specified forms of tremor Biliary stricture of transplanted liver (CMS/HCC) Anemia, unspecified type Hypomagnesemia Disorders of magnesium metabolism Hyperbilirubinemia Disorders of bilirubin excretion Ear infection Unspecified otitis media documented in this encounter Additional Health Concerns Assessment Noted Time PHQ-9 Depression Total Score: 9 01/21/20 7:11 AM EST A fall risk assessment has been complete d for the patient 02/02/2025 8:00 AM EST A Body Mass Index follow-up plan has been documented for the patient 02/02/2025 11:26 AM EST documented as of this encounter Care Teams Network Strategist Relationship Specialty Start Date End Date Param Eng DO [address] [place] [address] PCP - General 12/22/24 documented as of this encounter
--- OUTSIDE RECORDS SUMMARY | 2025-02-09 07:27 | XMS_ITS | Encounter Summary ---
Author Organization [facility] Address [address] [place] [address] Care Team Providers Care Fruit Room Hand Name Role Phone Velasquez Param Augie HORTON Primary Care Provider [phone] Encounter Details Date Type Department Care Team [...] or relatives? Twice a week 01/02/2025 Attends Yazdanism Services Not on file 01/02 Do you belong to any clubs o r organizations such as gnosticism groups, unions, fraternal or athletic groups, or [...] housing, medical care, and heating? Hard 01/02/2025 [facility] Occupat ional Health - [...] any time in the past 12 m [facility], were you homeless or living in a assisted (including now)? No 01/02/[address] [facility] Utilities Answer Date Recorded In [...] drink first t edgardo in the morning (EYE-VIDEO OPERATOR) to steady your nerves or to [...] Description 02/17/2025 7:00 AM EST Clinical Support [facility] [address] [place] [address] 02/17/2025 8:40 AM EST Office Visit [facility] [employer] [address] [place] [address] Vteogoxxij-Nroox-V urgery-Paul 03/06/2025 11:10 AM EST Appointment [facility] [address] [place] [address] Natalya Valentine MD [address] [place] [address] documented as of this encounter Visit Diagnoses [...] documented as of this encounter Care Teams Fruit Room Hand Relationship Specialty Start Date End Date Param Eng DO [address] [place] [address] PCP - General 12/22/24 documented as of this encounter
--- OUTSIDE RECORDS SUMMARY | 2025-02-09 07:27 | XMS_ITS | Encounter Summary ---
Author Organization [facility] Address [address] [place] [address] Care Team Providers Care Information Systems Planner Name Role Phone Velasquez Param Augie HORTON Primary Care Provider Encounter Details [...] or relatives? Twice a week 01/02/2025 Attends Lutheran Services Not on file 01/02 Do you belong to any clubs o r organizations such as jehovah's witness groups, unions, fraternal or athletic groups, or [...] housing, medical care, and heating? Hard 01/02/2025 [facility] of Occupat ional Health - Occupational Stress [...] any time in the past 12 m [facility], were you homeless or living in a [place] [facility] [place] (including now)? No 01/02/2025 [facility] [...] drink first t edgardo in the morning (EYE-ONLINE USER EXPERIENCE STRATEGIST) to steady your nerves or to get [...] Description 02/17/2025 7:00 AM EST Clinical Support [facility] [address] [place] [address] 02/17/2025 8:40 AM EST Office Visit [facility] [place] [address] [place] [address] Prjplhssyk-Mpcmd-W urgery-Paul 03/06/2025 11:10 AM EST Appointment [facility] [address] [place] [address] Natalya Valentine MD [address] [place] [address] documented as of this encounter Visit Diagnoses [...] of this encounter Care Teams Information Systems Planner Relationship Specialty Start Date End Date Param Eng DO [address] [place] [address] PCP - General 12/22/24 documented as of this encounter
--- OUTSIDE RECORDS SUMMARY | 2025-02-09 07:27 | XMS_ITS | Encounter Summary ---
Author Organization [facility] Address [address] [place] [address] Care Team Providers Care Stitcher Tape Controlled Machine Name Role Phone Param Eng DO Primary Care Provider [phone] Anh Harvey LPN Unavailable Unavailable Reason for Visit * Auth/Cert (Routine) Specialty Diagnoses / Procedures Referred By Contac t Referred To Contact Diagnoses Decompensation of cirrhosis of liver (CMS/HCC) Satnam Beckford MD [address] [address] Phone: tel: fax: PAV A Inpatient [address] [place] [address] Phone: tel: Referral ID Status Reason Start Date Expiration Date Visits Re quested Visits Authorized [id number] 1 1 Encounter Details Date Type Department Care Team (Late st Contact Info) Description 01/05/2025 Lab Requisition [facility] [address] [place] [address] Luis Steel MD [address] [place] [address] General medical exam Social History [...] or relatives? Twice a week 01/02/2025 Attends Anabaptist Services Not on file 01/02 Do you [...] housing, medical care, and heating? Hard 01/02/2025 [facility] Occupat ional Health - Occupational Stress [...] in the past 12 m [facility], were you homeless or living in a half-way (including now)? No 01/02/2025 [facility] Utilities Answer Date Recorded In the past 12 months has th e [employer], gas, oil, or water company threatened to [...] drink first t edgardo in the morning (EYE-SPORTS ADMINISTRATOR) to steady your nerves or to get [...] [facility] [address] [place] [address] 02/17/2025 8:40 AM EST Office Visit [facility] [address] [place] [address] Hmkinbtoyf-Odrfi-D urgery-Paul 03/06/2025 11:10 AM EST Appointment [facility] [address] [place] [address] Natalya Valentine MD [address] [place] [address] documented as of this encounter Procedures Procedure [...] TEST ORDERAB LES Final Result BLOOD BANK [address] documented in this encounter Visit Diagnoses [...] documented as of this encounter Care Teams Stitcher Tape Controlled Machine Relationship Specialty Start Date End Date Param Eng DO [address] [place] [address] PCP - General 12/22/24 Anh Harvey, JUANPABLO VALUE-[place] [address] None TCM Nurse 01/19/25 01/19/25 documented as of this encounter
--- OUTSIDE RECORDS SUMMARY | 2025-02-09 07:27 | XMS_ITS | Encounter Summary ---
Author Organization [facility] Address [address] [place] [address] Care Team Providers Care Mounter Brass Wind Instruments Name Role Phone Velasquez Param Augie HORTON Primary Care Provider [phone] Encounter Details Date Type Department Care Team [...] or relatives? Twice a week 01/02/2025 Attends Religion Services Not on file 01/02 Do you belong to any clubs o r organizations such as oriental orthodox groups, unions, fraternal or athletic groups, [...] housing, medical care, and heating? Hard 01/02/2025 [facility] Occupat ional Health - [...] any time in the past 12 m [facility], were you homeless or living in a intermediate (including now)? No 01/02/2025 [facility] Utilities Answer Date Recorded In [...] drink first t edgardo in the morning (EYE-BOARD STACKER) to steady your nerves or to get [...] Description 02/17/2025 7:00 AM EST Clinical Support [facility] [address] [place] [address] 02/17/2025 8:40 AM EST Office Visit [facility] [place] [address] [place] [address] Zexuzehjvk-Ubcjt-A urgery-Paul 03/06/2025 11:10 AM EST Appointment [facility] End[facility] [address] [place] [address] Natalya Valentine MD [address] [place] [address] documented as of this encounter Visit Diagnoses [...] documented as of this encounter Care Teams Mounter Brass Wind Instruments Relationship Specialty Start Date End Date Param Eng DO [address] [place] [address] PCP - General 12/22/24 documented as of this encounter
--- OUTSIDE RECORDS SUMMARY | 2025-02-09 07:27 | XMS_ITS | Encounter Summary ---
Author Organization [facility] Address [address] [place] [address] Care Team Providers Care Gravedigger Name Role Phone Velasquez Param Augie HORTON Primary Care Provider [phone] Encounter Details Date Type Department Care Team [...] any clubs o r organizations such as uatsdin groups, unions, fraternal or athletic groups, or [...] in a jail (including now)? No 01/02/2025 [facility] Utilities Answer Date Recorded In [...] drink first t edgardo in the morning (EYE-STONE CIRCULAR SAWYER) to steady your nerves or to get [...] Description 02/17/2025 7:00 AM EST Clinical Support [facility] [address] [place] [address] 02/17/2025 8:40 AM EST Office Visit [facility] [place] [address] [place] [address] Khqpslkjqp-Rhhyh-K urgery-Paul 03/06/2025 11:10 AM EST Appointment [facility] [address] [place] [address] Natalya Valentine MD [address] [place] [address] documented as of this encounter Visit Diagnoses [...] documented as of this encounter Care Teams Gravedigger Relationship Specialty Start Date End Date Param Eng DO [address] [place] [address] PCP - General 12/22/24 documented as of this encounter
--- OUTSIDE RECORDS SUMMARY | 2025-02-09 07:27 | XMS_ITS | Encounter Summary ---
Author Organization [facility] Address [address] [place] [address] Care Team Providers Care Cullet Crusher Name Role Phone VelasquezParam tamayo Augie HORTON Primary Care Provider [phone] Anh Harvey LPN Unavailable Unavailable Encounter Details Date Type Department Care Team (Late st Contact Info) Description 01/05/2025 Lab Requisition [facility] Lab [address] [place] [address] Diego Gray MD [address] [facility] [address] [place] [address] Encounter for general adult medical examination without [...] or relatives? Twice a week 01/02/2025 Attends Baptist Services Not on file 01/02 Do you belong to any clubs o r organizations such as episcopal groups, unions, fraternal or athletic groups, or [...] medical care, and heating? Hard 01/02/2025 [facility] of Occupat ional Health - [...] money to buy more. Never true 01/03/20 Within the past 12 months, t he [...] any time in the past 12 m [facility], were you homeless or living in a custodial (including now)? No 01/02/2025 [facility] Utilities Answer Date Recorded In the past [...] drink first t edgardo in the morning (EYE-NITROGEN OPERATOR) to steady your nerves or to [...] Description 02/17/2025 7:00 AM EST Clinical Support [facility] [address] [place] [address] 02/17/2025 8:40 AM EST Office Visit [facility] [address] [place] [address] Ytlrrwtess-Dicnr-W urgery-Paul 03/06/2025 11:10 AM EST Appointment [facility] End[facility] [address] [place] [address] Natalya Valentine MD [address] [place] [address] documented as of this encounter Procedures Procedure Name Priority Date/Time Associated Diagnosis Comments MULTI DRUG RESISTANCE TEST Routine 01/05/2025 6:40 PM EST Encounter for general adult medical examination without abnormal findings documented in this encounter Results * Multi Drug Resistance Test (01/05/2025 6:40 PM EST) Culture No growth at day 1 01/06/2025 8:52 PM EST [facility] Swab (Nares and Lauren Rectal) 01/05/2025 6:40 PM EST 01/05/2025 6:43 PM EST Narrative [facility] - 01/06/2025 8:52 PM EST This test was developed and its performance characteristics determined by the [facility]. Although the media is FDA-approved, it is not FDA-approved for all specimen types submitted. The FDA has determined that such clearance or approval is not necessary. This test is used for surveillance purposes. It should not be regarded as investigational or for research. The [facility] is certified under the Clinical Laboratory Improvement Amendments of 1988 (CLIA-88) as qualified to perform high complexity clinical laboratory testing. us Diego Gray MD LAB MICROBIOLOGY - GEN ERAL ORDERABLES Final Result [facility] [address] [place] [address] documented in this encounter Visit Diagnoses Diagnosis [...] documented as of this encounter Care Teams Cullet Crusher Relationship Specialty Start Date End Date Param Eng DO [address] [place] [address] PCP - General 12/22/24 Anh Harvey LPN VALUE-BASED [place] [address] None TCM Nurse 01/19/25 01/19/25 documented as of this encounter
--- OUTSIDE RECORDS SUMMARY | 2025-02-09 07:27 | XMS_ITS | Encounter Summary ---
Author Organization [facility] Address [address] [place] [address] Care Team Providers Care Natural Sciences Professor Name Role Phone Velasquez Param Augie HORTON Primary Care Provider [phone] Encounter Details Date Type Department Care Team [...] or relatives? Twice a week 01/02/2025 Attends Restorationism Services Not on file 01/02 Do you belong to any clubs o r organizations such as anglican groups, unions, fraternal or athletic groups, or [...] heating? Hard 01/02/2025 [facility] of Occupat ional Health - [...] any time in the past 12 m [facility], were you homeless or living in a [facility] (including now)? No 01/02/2025 [facility] Utilities Answer Date Recorded In [...] drink first t edgardo in the morning (EYE-RESEARCH MANAGER) to steady your nerves or to [...] Description 02/17/2025 7:00 AM EST Clinical Support [facility] [address] [place] [address] 02/17/2025 8:40 AM EST Office Visit [facility] [place] [address] [place] [address] Iobmrnjspt-Esbly-Z urgery-Paul 03/06/2025 11:10 AM EST Appointment [facility] Endoscopy [address] [place] [address] Natalya Valentine MD [address] [place] [address] documented as of this encounter Visit Diagnoses [...] documented as of this encounter Care Teams Natural Sciences Professor Relationship Specialty Start Date End Date Param Eng DO [address] [place] [address] PCP - General 12/22/24 documented as of this encounter
--- OUTSIDE RECORDS SUMMARY | 2025-02-09 07:31 | XMS_ITS | Encounter Summary ---
Author Organization [facility] Address [address] [place] [address] Care Team Providers Care Carpet Layer Name Role Phone Bebo Engew Augie HORTON Primary Care Provider [phone] Encounter Details Date Type Department Care Team [...] time in the past 12 m [facility], were you homeless or living in a group home (including now)? No 12/18/2024 [facility] Utilities Answer Date Recorded In [...] as of this encounter Functional Status * Communicable Disease Screening Question Answer Date of Assessment Author Have you been in contact with someone who was sick? No / Unsure 12/30/2024 6:19 AM Augie Alexander Do you have any of the following new or worsening symptoms? None of these 12/30/2024 6:19 AM Augie Alexander * Travel Screening Question Answer Date of Assessment Author Have you traveled internationally or domestically in the last month? No 12/30/2024 6:19 AM Augie Alexander documented as of this encounter Mental Status * Communicable Disease Screening Question Answer Entry Date Author Have you been in contact with someone who was sick? No / Unsure 12/30/2024 6:19 AM Carmen Alexander Do you have any of the following new or worsening symptoms? None of these 12/30/2024 6:19 AM EST Carmen Carrera * Travel Screening Question Answer Entry Date Author Have you traveled internationally or domestically in the last month? No 12/30/2024 6:19 AM EST Augie Carrera documented in this encounter Plan of Treatment Upcoming Encounters Date Type Department Care Team (Late st Contact Info) Description 02/17/2025 7:00 AM EST Clinical Support [facility] [address] [place] [address] 02/17/2025 8:40 AM EST Office Visit [facility] [address] [place] [address] Aujzjisthd-Qcxsp-J urgery-Apul 03/06/2025 11:10 AM EST Appointment [facility] Endoscopy [address] [place] [address] Natalya Valentine MD [address] [place] [address] documented as of this encounter Visit Diagnoses [...] documented as of this encounter Care Teams Carpet Layer Relationship Specialty Start Date End Date Param Eng DO [address] [place] [address] PCP - General 12/22/24 documented as of this encounter
--- OUTSIDE RECORDS SUMMARY | 2025-02-09 07:31 | XMS_ITS | Encounter Summary ---
Author Organization [facility] Address [address] [place] [address] Care Team Providers Care Post Hole Digger Name Role Phone Bebo Engew Augie HORTON Primary Care Provider [phone] Encounter Details Date Type Department Care Team [...] in a retirement (including now)? No 12/18/2024 [facility] Utilities Answer Date Recorded In the past 12 months has th e [employer], gas, oil, or water company threatened to [...] Assessment Author Have you been in contact wit h someone who was sick? No / Unsure 12/24/2024 9:53 AM Kelsey Balbuena Do you have any of the following new or worsening symptoms? None of these 12/24/2024 9:53 AM Kelsey Balbuena * Travel Screening Question Answer Date of Assessment Author Have you traveled internatio sat[place] or domestically in the last month? No 12/24/2024 9:53 AM Kelsey Romero documented as of this encounter Mental Status * Communicable Disease Screening Question Answer Entry Date Author Have you been in contact wit h someone who was sick? No / Unsure 12/24/2024 9:53 AM Kelsey Balbuena Do you have any of the following new or worsening symptoms? None of these 12/24/2024 9:53 AM Kelsey Balbuena * Travel Screening Question Answer Entry Date Author Have you traveled internatio satish or domestically in the last month? No 12/24/2024 9:53 AM Kelsey Romero documented in this encounter Plan of Treatment Upcoming Encounters Date Type Department Care Team (Late st Contact Info) Description 02/17/2025 7:00 AM EST Clinical Support [facility] [address] [place] [address] 02/17/2025 8:40 AM EST Office Visit [facility] [address] [place] [address] Zqufhuyefy-Gtgtw-J urgery-Paul 03/06/2025 11:10 AM EST Appointment [facility] [address] [place] [address] Natalya Valentine MD [address] [place] [address] documented as of this encounter Visit Diagnoses [...] documented as of this encounter Care Teams Post Hole Digger Relationship Specialty Start Date End Date Param Eng DO [address] [place] [address] PCP - General 12/22/24 documented as of this encounter
--- OUTSIDE RECORDS SUMMARY | 2025-02-09 07:31 | XMS_ITS | Encounter Summary ---
Author Organization [facility] Address [address] [place] [address] Care Team Providers Care Busgirl Name Role Phone Param Eng DO Primary Care Provider [phone] Encounter Details Date Type Department Care Team (Late st Contact Info) Description 01/01/2025 [facility] [address] [facility] [address] [place] [address] Mattie Hayden Social History Tobacco Use Types [...] housing, medical care, and heating? Hard 01/02/2025 [facility] of Occupat ional Health - [...] time in the past 12 m [facility], were you homeless or living in a longterm (including now)? No 01/02/2025 [facility] Utilities Answer Date Recorded In [...] drink first t edgardo in the morning (EYE-CASTING HOUSE WORKER) to steady your nerves or to get [...] The transplant surgery notification list (Admitting, resident nylon mender, lab, blood bank, MELANI, ICU, OR, IMP lab) and Donor information verified in [facility] and notification email sent to the transplant team will be completed to follow this conversation. documented in this encounter Plan of Treatment Upcoming Encounters Date Type Department Care Team (Late st Contact Info) Description 02/17/2025 7:00 AM EST Clinical Support [facility] [place] [address] [place] [address] 02/17/2025 8:40 AM EST Office Visit [facility] [place] [address] [place] [address] Imgmoqgrol-Kbwrs-N urgery-Paul 03/06/2025 11:10 AM EST Appointment [facility] Endoscopy [address] [place] [address] Natalya Valentine MD [address] [place] [address] documented as of this encounter Visit Diagnoses [...] documented as of this encounter Care Teams Busgirl Relationship Specialty Start Date End Date Param Eng DO [address] [place] [address] PCP - General 12/22/24 documented as of this encounter
--- OUTSIDE RECORDS SUMMARY | 2025-02-09 07:31 | XMS_ITS | Encounter Summary ---
Author Organization [facility] Address [address] [place] [address] Care Team Providers Care Receiving Associate Name Role Phone Velasquez Param Augie HORTON Primary Care Provider [phone] Encounter Details Date Type Department Care Team [...] or relatives? Twice a week 01/02/2025 Attends Caodaism Services Not on file 01/02 Do you belong to any clubs o r organizations such as yarsani groups, unions, fraternal or athletic groups, or [...] time in the past 12 m [facility], were you homeless or living in a senior living (including now)? No 01/02/2025 [facility] Utilities Answer Date [...] drink first t edgardo in the morning (EYE-PAYROLL PROCESSOR) to steady your nerves or to get [...] Description 02/17/2025 7:00 AM EST Clinical Support [facility] [address] [place] [address] 02/17/2025 8:40 AM EST Office Visit [facility] [place] [address] [place] [address] Jtqjhrusrz-Vgikm-T urgery-Paul 03/06/2025 11:10 AM EST Appointment [facility] [address] [place] [address] Natalya Valentine MD [address] [place] [address] documented as of this encounter Visit Diagnoses [...] documented as of this encounter Care Teams Receiving Associate Relationship Specialty Start Date End Date Param Eng DO [address] [place] [address] [place] [address] PCP - General 12/22/24 documented as of this encounter
--- OUTSIDE RECORDS SUMMARY | 2025-02-09 07:31 | XMS_ITS | Encounter Summary ---
Author Organization [facility] Address [address] [place] [address] Care Team Providers Care Wound Care Center Consultant Name Role Phone Param Eng Augie HORTON Primary Care Provider [phone] Reason for Visit * Reason Onset Date Comments Prior-authorization/insurance Verification 12/22 Encounter Details Date Type Department Care Team (Late st Contact Info) Description 12/22/2024 Telephone [facility] Medicine Virtual Dept. [address] [place] [address] Leroy Aponte MD [address] [place] [address] Prior-authorization/ins urance Verification Social History Tobacco Use [...] living in a snf (including now)? No 12/18/2024 [facility] Utilities Answer Date Recorded In the [...] Description 02/17/2025 7:00 AM EST Clinical Support [facility] [place] [address] [place] [address] 02/17/2025 8:40 AM EST Office Visit [facility] [place] [address] [place] [address] Aquezsofzp-Uwwej-S urgery-Paul 03/06/2025 11:10 AM EST Appointment [facility] [address] [place] [address] Natalya Valentine MD [address] [place] [address] documented as of this encounter [...] documented as of this encounter Care Teams Wound Care Center Consultant Relationship Specialty Start Date End Date Param Eng DO [address] [place] [address] PCP - General 12/22/24 documented as of this encounter
--- OUTSIDE RECORDS SUMMARY | 2025-02-09 07:31 | XMS_ITS | Encounter Summary ---
Author Organization [facility] Address [address] [place] [address] Care Team Providers Care Coat Presser Name Role Phone Velasquez Param Augie HORTON Primary Care Provider [phone] Encounter Details Date Type Department Care Team [...] or relatives? Twice a week 01/02/2025 Attends Scientologist Services Not on file 01/02 Do you belong to any clubs o r organizations such as confucianism groups, unions, fraternal or athletic groups, or [...] housing, medical care, and heating? Hard 01/02/2025 [facility] of Occupat ional Health [...] living in a usp (including now)? No 01/02/2025 [facility] Utilities Answer Date Recorded In the [...] drink first t edgardo in the morning (EYE-TENTMAKER) to steady your nerves or to get [...] someone who was sick? No / Unsure 01/02/2025 3:57 PM Akilah Vasquez RN Do you have any of the following new or worsening symptoms? None of these 01/02/2025 3:57 PM Jolene Vasquez RN * Travel Screening Question Answer Date of Assessment Author Have you traveled internatio sat[place] or domestically in the last month? No 01/02/2025 3:57 PM EST Jolene Parsons RN documented as of this encounter Mental Status * Communicable Disease Screening Question Answer Entry Date Author Have you been in contact with someone who was sick? No / Unsure 01/02/2025 3:57 PM EST Akilah Florian RN Do you have any of the following new or worsening symptoms? None of these 01/02/2025 3:57 PM Jolene Vasquez RN * Travel Screening Question Answer Entry Date Author Have you traveled internatio satish or domestically in the last month? No 01/02/2025 3:57 PM EST Jolene Parsons RN documented in this encounter Plan of Treatment Upcoming Encounters Date Type Department Care Team (Late st Contact Info) Description 02/17/2025 7:00 AM EST Clinical Support [facility] [address] [facility] [address] [place] [address] 02/17/2025 8:40 AM EST Office Visit [facility] [place] [address] [facility] [address] [place] [address] Priitnpdtk-Fgmny-T urgery-Paul 03/06/2025 11:10 AM EST Appointment [facility] [address] [place] [address] Natalya Valentine MD [address] [facility] [address] [place] [address] documented as of this encounter Visit Diagnoses [...] documented as of this encounter Care Teams Coat Presser Relationship Specialty Start Date End Date Param Eng, [address] [place] [facility] [address] [place] [address] PCP - General 12/22/24 documented as of this encounter
--- OUTSIDE RECORDS SUMMARY | 2025-02-09 07:31 | XMS_ITS | Encounter Summary ---
Author Organization [facility] Address [address] [place] [address] Care Team Providers Care Bull Rider Name Role Phone Param Eng DO Primary Care Provider [phone] Encounter Details Date Type Department Care Team (Late st Contact Info) Description 12/30/2024 Telephone [facility] [address] [facility] [address] [place] [address] Ping Daley, RN HOSPITAL LIVER [id number] [address] [place] [address] Social History Tobacco Use Types Packs/Day Years [...] in a senior care (including now)? No 12/18/2024 [facility] Utilities Answer Date Recorded In [...] Telephone Encounter - Ping Daley, RN - 12/30/2024 10:46 AM EST Called pt to discuss listing status. Pt verbalized understanding. Psych appts have been canceled x 2. Pt awaiting rescheduling. Denies further questions at this time. documented in this encounter Plan of Treatment Upcoming Encounters Date Type Department Care Team (Late st Contact Info) Description 02/17/2025 7:00 AM EST Clinical Support [facility] [address] [place] [address] 02/17/2025 8:40 AM EST Office Visit [facility] [address] [place] [address] Lutswjwgsy-Njvai-W urgery-Pual 03/06/2025 11:10 AM EST Appointment [facility] [address] [place] [address] Natalya Valentine MD [address] [place] [address] documented as of this encounter Visit Diagnoses [...] documented as of this encounter Care Teams Bull Rider Relationship Specialty Start Date End Date Param Eng DO [address] [facility] [address] [place] [address] PCP - General 12/22/24 documented as of this encounter
--- OUTSIDE RECORDS SUMMARY | 2025-02-09 07:31 | XMS_ITS | Encounter Summary ---
Author Organization [facility] Address [address] [place] [address] Care Team Providers Care Analytical Technician Name Role Phone Pcp, No Primary Care Provider Unavailabl e Param Eng DO Primary Care Provider [phone] Anh Harvey LPN Unavailable Unavailable Encounter Details Date Type Department Care Team (Late st Contact Info) Description 12/19/2024 Results Follow-Up [facility] [address] [facility] [address] [place] [address] Ping Daley, RN [facility] LIVER [id number] [address] [place] [address] Social History Tobacco Use Types Packs/Day Years [...] any time in the past 12 m [facility], were you homeless or living in a jail (including now)? No 12/18/2024 [facility] Utilities Answer Date Recorded In the past [...] Support [facility] [address] [place] [address] 02/17/2025 8:40 AM EST Office Visit [facility] [address] [place] [address] Ephpzbajjc-Xzjkq-D urgery-Paul 03/06/2025 11:10 AM EST Appointment [facility] [address] [place] [address] Natalya Valentine MD [address] [place] [address] documented as of this encounter Visit Diagnoses [...] documented as of this encounter Care Teams Analytical Technician Relationship Specialty Start Date End Date Pcp, [place] [address] PCP - General Family Medicine 10/20/23 12/21/24 Param Eng DO [address] [facility] [address] [place] [address] PCP - General 12/22/24 Anh Harvey, JUANPABLO VALUE-BASED [place] [address] None TCM Nurse 01/19/25 01/19/25 documented as of this encounter
--- OUTSIDE RECORDS SUMMARY | 2025-02-09 07:31 | XMS_ITS | Encounter Summary ---
Author Organization [facility] Address [address] [place] [address] Care Team Providers Care Tear Down Man Name Role Phone Pcp, No Primary Care [...] time in the past 12 m [facility], were you homeless or living in a detention (including now)? No 12/18/2024 [facility] Utilities Answer Date Recorded In [...] Description 02/17/2025 7:00 AM EST Clinical Support [facility] Transplant [place] [address] [place] [address] 02/17/2025 8:40 AM EST Office Visit [facility] [place] [address] [place] [address] Wvsngxlyuv-Yhvst-O urgery-Paul 03/06/2025 11:10 AM EST Appointment [facility] [address] [place] [address] Natalya Valentine MD [address] [place] [address] documented as of this encounter Visit Diagnoses [...] documented as of this encounter Care Teams Tear Down Man Relationship Specialty Start Date End Date Pcp, No [address] [place] [address] PCP - General Family Medicine 10/20/23 12/21/24 documented as of this encounter
--- OUTSIDE RECORDS SUMMARY | 2025-02-09 07:32 | XMS_ITS | Encounter Summary ---
Author Organization [facility] Address [address] [place] [address] Care Team Providers Care Die Finisher Forging Name Role Phone Param Eng DO Primary Care Provider [phone] Reason for Referral * Medications - Closed Specialty Diagnoses / Procedures Referred By iNcole t Referred To Contact Diagnoses Liver replaced by transplant Aftercare following organ transplant Immunosuppression (CMS/HCC) Chacha Heard APRN [address] [place] [address] Phone: tel: fax: Referral ID Status Reason Start Date Expiration Date Visits Re quested Visits Authorized [id number] Closed 1 1 Reason for Visit * Reason Comments Med Refill Encounter Details Date Type Department Care Team (Late st Contact Info) Description 01/28/2025 Refill [facility] [address] [place] [address] Samira Sanders RN [facility] LIVER [id number] [address] [place] [address] Liver replaced by transplant; Aftercare following organ transplant; Immunosuppression (CMS/HCC); Insomnia, unspecified type Social History Tobacco Use [...] or relatives? Twice a week 01/02/2025 Attends Mandaen Services Not on file 01/02 Do you [...] housing, medical care, and heating? Hard 01/02/2025 [facility] [place] of Occupat ional Health - Occupational Stress [...] any time in the past 12 m [facility], were you homeless or living in a correction (including now)? No 01/02/2025 [facility] Utilities Answer Date Recorded In the [...] drink first t edgardo in the morning (EYE-COAL DELIVERER) to steady your nerves or to get [...] [facility] [address] [place] [address] 02/17/2025 8:40 AM EST Office Visit [facility] [address] [place] [address] Cweetzhpxt-Fvbpw-T urgery-Paul 03/06/2025 11:10 AM EST Appointment [facility] [address] [place] [address] Natalya Valentine MD [address] [place] [address] documented as of this encounter Visit Diagnoses Diagnosis Liver replaced by transplant Aftercare following organ transplant Immunosuppression (CMS/HCC) Insomnia, unspecified type documented in this encounter Additional Health Concerns Assessment Noted Time PHQ-9 Depression Total Score: 9 01/21/20 7:11 AM EST A fall risk assessment has been complete d for the patient 01/26/2025 7:55 AM EST A Body Mass Index follow-up plan has been documented for the patient 01/26/2025 12:12 PM EST documented as of this encounter Care Teams Die Finisher Forging Relationship Specialty Start Date End Date Param Eng DO [address] [facility] [address] [place] [address] PCP - General 12/22/24 documented as of this encounter
--- OUTSIDE RECORDS SUMMARY | 2025-02-09 07:32 | XMS_ITS | Encounter Summary ---
Author Organization [facility] Address [address] [place] [address] Care Team Providers Care Electric Meter Installer Helper Name Role Phone Pcp, No Primary Care Provider Unavailabl Param Hernandes DO Primary Care Provider [phone] Anh Harvey LPN Unavailable Unavailable Encounter Details Date Type Department Care Team (Late st Contact Info) Description 09/04/2024 Orders Only External Location [address] [place] [address] Provider, External Social History Tobacco Use Types [...] Description 02/17/2025 7:00 AM EST Clinical Support [facility] Trans[facility] [address] [place] [address] 02/17/2025 8:40 AM EST Office Visit [facility] [address] [place] [address] Terddudqrk-Tdujc-J urgery-Paul 03/06/2025 11:10 AM EST Appointment [facility] End[facility] [address] [place] [address] Natalya Valentine MD [address] [place] [address] documented as of this encounter Procedures Procedure Name Priority Date/Time Associated Diagnosis Comments CT OUTSIDE IMAGES 09/04/2024 3:10 PM EDT documented in this encounter Results * CT OUTSIDE IMAGES (09/04/2024 3:10 PM EDT) Anatomical Region Laterality Modality Computed Tomogra phy 09/04/2024 3:10 PM EDT us External Provider IMG CT PROCEDURES Final Result documented in this encounter Visit Diagnoses Not on filedocumented in this encounter Additional Health Concerns Infection Onset Date Last Indicated Resolved Time C. difficile 11/04/2024 11/04/2024 12/18/2024 7:20 PM EST COVID-19 Rule-Out 01/02/2025 01/02/2025 01/02/2025 11:10 AM EST documented as of this encounter Care Teams Electric Meter Installer Helper Relationship Specialty Start Date End Date Pcp, [place] [address] PCP - General Family Medicine 10/20/23 12/21/24 Param Eng, [facility] [address] [place] [address] PCP - General 12/22/24 Anh Harvey, JUANPABLO VALUE-[place] [address] None TCM Nurse 01/19/25 01/19/25 documented as of this encounter
--- OUTSIDE RECORDS SUMMARY | 2025-02-09 07:32 | XMS_ITS | Encounter Summary ---
Author Organization [facility] Address [address] [place] [address] Care Team Providers Care Business Development Manager Name Role Phone Velasquez Param Augie HORTON Primary Care Provider Encounter Details Date Type Department Care Team (Latest Contact Info) Description 02/02/2025 Travel Social History Tobacco Use Types Packs/Day [...] or relatives? Twice a week 01/02/2025 Attends Sikhism Services Not on file 01/02 Do you belong to any clubs o r organizations such as mandaeism groups, unions, fraternal or athletic groups, or [...] housing, medical care, and heating? Hard 01/02/2025 [facility] of Occupat ional Health - Occupational Stress [...] a group home (including now)? No 01/02/2025 [facility] Utilities [...] drink first t edgardo in the morning (EYE-CONVEYOR BELT INSTALLER) to steady your nerves or to get [...] someone who was sick? No / Unsure 02/02/2025 7:40 AM Augie Alexander Do you have any of the following new or worsening symptoms? None of these 02/02/2025 7:40 AM Augie Alexander * Travel Screening Question Answer Date of Assessment Author Have you traveled internationally or domestically in the last month? No 02/02/2025 7:40 AM EST Augie Carrera documented as of this encounter Mental Status * Communicable Disease Screening Question Answer Entry Date Author Have you been in contact with someone who was sick? No / Unsure 02/02/2025 7:40 AM EST Carmen Carrera Do you have any of the following new or worsening symptoms? None of these 02/02/2025 7:40 AM EST Carmen Carrera * Travel Screening Question Answer Entry Date Author Have you traveled internationally or domestically in the last month? No 02/02/2025 7:40 AM EST Augie Carrera documented in this encounter Plan of Treatment Upcoming Encounters Date Type Department Care Team (Late st Contact Info) Description 02/17/2025 7:00 AM EST Clinical Support [facility] [address] [place] [address] 02/17/2025 8:40 AM EST Office Visit [facility] [address] [place] [address] Fnnpszclca-Mwanh-S urgery-Paul 03/06/2025 11:10 AM EST Appointment [facility] [address] [place] [address] Natalya Valentine MD [address] [place] [address] documented as of this encounter Visit Diagnoses [...] documented as of this encounter Care Teams Business Development Manager Relationship Specialty Start Date End Date Param Eng DO [address] [place] [address] [place] [address] PCP - General 12/22/24 documented as of this encounter
--- OUTSIDE RECORDS SUMMARY | 2025-02-09 07:32 | XMS_ITS | Encounter Summary ---
Author Organization [facility] Address [address] [place] [address] Care Team Providers Care Port Captain Name Role Phone Pcp, No Primary Care Provider Unavailabl e Param Eng DO Primary Care Provider [phone] Anh Harvey LPN Unavailable Unavailable Encounter Details Date Type Department Care Team (Late st Contact Info) Description 12/12/2024 Results Follow-Up [facility] [address] [facility] [address] [place] [address] Ping Daley, RN [facility] LIVER [id number] [address] [place] [address] Social History Tobacco Use Types Packs/Day Years [...] any time in the past 12 m [facility], were you homeless or living in a fdc (including now)? No 10/20/2024 [facility] Utilities Answer Date Recorded [...] Description 02/17/2025 7:00 AM EST Clinical Support [facility] [address] [place] [address] 02/17/2025 8:40 AM EST Office Visit [facility] Transplant [place] [address] [place] [address] Hzgwzxkpyp-Uangn-A urgery-Paul 03/06/2025 11:10 AM EST Appointment [facility] [address] [place] [address] Natalya Valentine MD [address] [facility] [address] [place] [address] documented as of this encounter Visit Diagnoses [...] documented as of this encounter Care Teams Port Captain Relationship Specialty Start Date End Date Pcp, [place] [address] PCP - General Family Medicine 10/20/23 12/21/24 Param Eng DO [address] [place] [address] PCP - General 12/22/24 Anh Harvey, JUANPABLO VALUE-BASED [place] [address] None TCM Nurse 01/19/25 01/19/25 documented as of this encounter
--- OUTSIDE RECORDS SUMMARY | 2025-02-09 07:32 | XMS_ITS ---
Author Organization [facility] Address [address] [place] [address] Care Team Providers Care Electrical Prospecting Supervisor Name Role Phone Param Eng DO Primary Care Provider [phone] Transitional Care Management Status:Closed (Closed) Program category:Transitional Care Management - [facility] Start date:01/19/2025 Enrollment reason:Identified using hospital discharge data End date:01/19/2025 Close reason:Enrollment Error Overview This episode type is for outpatient care managers enrolling patients in the [facility] Transitional Care Management program. Continued Care and Services Coordination
--- OUTSIDE RECORDS SUMMARY | 2025-02-09 07:32 | XMS_ITS | Encounter Summary ---
Author Organization Healthcare Address [address] [place] [id number] Care Team Providers Care Web Services Architect Name Role Phone Velasquez Param Augie HORTON Primary Care Provider [phone] Encounter Details Date Type Department Care Team (Late st Contact Info) Description 02/02/2025 Clinical Support [facility] [address] [place] [address] Kelvin Ibarra, RD CH - CLINICAL NUTRITION [address] [place] [address] Social History Tobacco Use Types Packs/Day Years [...] or relatives? Twice a week 01/02/2025 Attends Orthodoxy Services Not on file 01/02 Do you [...] were you homeless or living in a chcf (including now)? No 01/02/2025 [facility] Utilities Answer Date Recorded In the past 12 months has th e [employer], gas, oil, or water company threatened to [...] drink first t edgardo in the morning (EYE-MANAGEMENT DEPARTMENT CHAIR) to steady your nerves or to get rid of a hangover? 1 01/02/2025 CAGE Questionnaire Score 4 025 Sex and Gender Information Value Date Recorded Sex Assigned at Not on file Legal Sex Male 2:45 PM EDT Gender Identity Not on file Sexual Orientation Not on file documented as of this encounter Miscellaneous Notes * Clinician Note - Kelvin Ibarra, RD - 02/02/2025 10:59 AM EST Transplant Clinic Nutrition Evaluation Evaluation Type: Follow-Up Nutrition Assessment Organ Group: Liver HPI Cesar Tay is a 45 y.o. 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 Past Medical/Surgical History Past Medical History[1] Surgical History[2] Labs Lab Results Component Value Date GLUCOSE 63 (L) 02/02/2025 CALCIUM 9.0 02/02/2025 NA 139 02/02/2025 K 4.2 02/02/2025 CO2 23 02/02/2025 CL 106 02/02/2025 BUN 34 (H) 02/02/2025 CREATININE 1.12 02/02/2025 Lab Results Component Value Date CALCIUM 9.0 02/02/2025 PHOS 4.0 01/16/2025 Lab Results Component Value Date ALT 22 02/02/2025 AST 14 02/02/2025 GGT 71 (H) 02/02/2025 ALKPHOS 83 02/02/2025 BILITOT 2.1 (H) 02/02/2025 Lab Results Component Value Date CHOL 83 10/20/2024 Lab Results Component Value Date HDL 27 (L) 10/20/2024 Lab Results Component Value Date LDLCALC 40 10/20/2024 Lab Results Component Value Date TRIG 72 10/20/2024 Lab Results Component Value Date CRATIO 3 10/20/2024 Lab Results Component Value Date HGBA1C <4.0 10/21/202401/20: Low ma.5 01/26: Mag trending 1.7 02/02: 1.8 Medications Reviewed current outpatient medications. Pertinent medications include: Current Medications[3] Nutrition History Previous Visit with Dietitian? Yes, TXP RD's Home Diet: Post-Transplant Appetite: Good Nutrition Supplements: Boost Glucose Control x3/day Nutrition-Related Symptoms: Early Satiety and Taste Changes (improving) Food Allergies: No Known Food Allergies Food Preferences: No cultural or sabianist food preferences Fluid Retention: 1+ BLLE edema - per provider assessment. Additional Information: Visited patient in clinic today. Patient accompanied by his at time ofvisit. Patient reports continued good appetite and intake. He is noted with lower blood glucose: 63mg/dL today in clinic. He states that he did not eat breakfast today before coming in, and does notalways eat breakfast at home. RD recommended incorporating breakfast or a protein shake in the morni ng to avoid low BG levels and to ensure adequate post-transplant intake. Patient denies any hypoglycemic symptoms. RD offered a snack while in clinic. They state that he had something after labs and are planning to eat as soon as they leave clinic today. Otherwise patient reports regular appetite and intake with no tolerance issues. His continues to prepare more homemade meals. RD provided additional meal planning/prepping tips to support continued efforts. He is noted with weight loss of ~6 lbs today. His weight has been fluctuating in clinic and he also reports noted fluctuations at home, This is likely related to resolving fluid retention. RD will continue to monitor weight trends in clinic. Patient asked about using other protein shakes or whey protein to help him regain some muscle. RD spoke them about supplements and explained that he can change his protein supplement to a higher protein supplement or use a standard whey protein if he would like, but also explained that participation in PT and increased activity as appropriate/cleared will also be necessary for rebuilding muscle and that this will take time with ongoing recovery. RD provided opportunity for patient and spouse to ask any additional questions. RD will continue tomonitor patient's nutrition status and follow up with him in clinic as needed. Anthropometric Measurements Height: 195.6 cm Current Weight: 94 kg Donaldson Body Weight: 94.5 kg (99%) Adjusted Body Weight: N/A BMI: 24.6 Weight Evaluation: Normal (BMI 18.5 - 24.9) Weight History: Wt Readings from Last 12 Encounters: 02/02/25 91.4 kg (201 lb 8 [...] 11/04/24 109 kg (240 lb 4.8 oz) *01/26: 6 lb gain in 4 days (since last clinic visit). Patient reports regular post-transplant weight fluctuations. Likely fluid related. Will continue to monitor trends in clinic. 02/02: 6 lb loss in 7 days. Likely related to fluid fluctuations (1+ BLLE today in clinic, down from 2+ at last visit). Will continue to monitor trends. Estimated Needs Kcal/K - 35 Kcal recommended: 2742 - 3199 Kcal needs based on: Current Body Weight - 91.4 kg Grams Protein/K.5 - 2.0 Grams Protein recommended: 137 - 183 Protein needs based on: Current Body Weight Nutrition Diagnosis Increased nutrient needs calories and protein related to increased metabolic demand/recovery as evidence by patient with decompensated liver cirrhosis s/p OLT on 01/03/25. Status of Nutrition Diagnosis: Ongoing Nutrition Interventions - Education: post-transplant - Nutrition [...] available for further consult as needed. Kelvin Ibarra, RD, LD [1] Past Medical History: Diagnosis [...] Rfl: 2 ergocalciferol (Vitamin D-2) 1.25 MG (12217 UT) capsule, Take 1 capsule by mouth 1 time per week. Fridays, Disp: 4 capsule, Rfl: 1 escitalopram (Lexapro) 10 MG tablet, Take 1 tablet by mouth daily. See PCP for refills/managment, Disp: 30 tablet, Rfl: 2 ferrous sulfate 324 MG tablet delayed-release, Take 1 tablet by mouth daily with breakfast. Do not crush, chew, or split., Disp: 30 tablet, Rfl: 0 magnesium oxide (Mag-Ox) 400 [...] 2 predniSONE (Deltasone) 10 MG tablet, Take 4 tablets by mouth daily for 3 days, THEN 3 tablets dailyfor 3 days, THEN 2 tablets daily., Disp: , Rfl: rOPINIRole (Requip) 0.25 MG tablet, Take 2 tablets by mouth nightly., Disp: 60 tablet, Rfl: 2 sulfamethoxazole-trimethoprim (Bactrim) 400-80 MG tablet, Take 1 tablet by mouth daily., Disp: 30 tablet, Rfl: 5 tacrolimus 1 MG PO capsule, Take 3 capsules by mouth every morning AND 3 capsules every evening. Z94.4. transplant date 01/03/25., Disp: 180 capsule, Rfl: 11 traZODone (Desyrel) 50 MG tablet, Take 1 tablet by mouth nightly. See PCP for refills/management, Disp: 30 tablet, Rfl: 2 ursodiol (Actigall) 300 MG capsule, Take 2 [...] Support [facility] [address] [place] [address] 02/17/2025 8:40 AM EST Office Visit [facility] [address] [place] [address] Drkcfeeudn-Vvhwf-S urgery-Paul 03/06/2025 11:10 AM EST Appointment [facility] [address] [place] [address] Natalya Valentine MD [address] [facility] [address] [place] [address] documented as of this encounter Visit Diagnoses [...] documented as of this encounter Care Teams Web Services Architect Relationship Specialty Start Date End Date Param Eng DO [address] [facility] [address] [address] PCP - General 12/22/24 documented as of this encounter
--- OUTSIDE RECORDS SUMMARY | 2025-02-09 07:32 | XMS_ITS | Encounter Summary ---
Author Organization [facility] Address [address] [place] [address] Care Team Providers Care Vice President Underwriting Name Role Phone Pcp, No Primary Care [...] in a nursing home (including now)? No 12/18/2024 [facility] Utilities Answer Date Recorded In the past 12 months has e electric, gas, oil, or water company [...] someone who was sick? No / Unsure 12/17/2024 6:50 AM Augie Alexander Do you have any of the following new or worsening symptoms? None of these 12/17/2024 6:50 AM Augie Alexander * Travel Screening Question Answer Date of Assessment Author Have you traveled internationally or domestically in the last month? No 12/17/2024 6:50 AM Augie Alexander documented as of this encounter Mental Status * Communicable Disease Screening Question Answer Entry Date Author Have you been in contact with someone who was sick? No / Unsure 12/17/2024 6:50 AM Carmen Alexander Do you have any of the following new or worsening symptoms? None of these 12/17/2024 6:50 AM EST Carmen Carrera * Travel Screening Question Answer Entry Date Author Have you traveled internationally or domestically in the last month? No 12/17/2024 6:50 AM EST Augie Carrera documented in this encounter Plan of Treatment Upcoming Encounters Date Type Department Care Team (Late st Contact Info) Description 02/17/2025 7:00 AM EST Clinical Support [facility] [address] [place] [address] 02/17/2025 8:40 AM EST Office Visit [facility] [address] [place] [address] Ffanalhlxn-Tsxka-E urgery-Paul 03/06/2025 11:10 AM EST Appointment [facility] [address] [place] [address] Natalya Valentine MD [address] [facility] [address] [place] [address] documented as of this encounter Visit Diagnoses [...] documented as of this encounter Care Teams Vice President Underwriting Relationship Specialty Start Date End Date Pcp, No [address] [place] [address] PCP - General Family Medicine 10/20/23 12/21/24 documented as of this encounter
--- OUTSIDE RECORDS SUMMARY | 2025-02-09 07:32 | XMS_ITS | Encounter Summary ---
Author Organization [facility] Address [address] [place] [address] Care Team Providers Care Supervisor Policy Change Clerks Name Role Phone Velasquez Param Augie HORTON Primary Care Provider [phone] Encounter Details Date Type Department Care Team (Latest Contact Info) Description 01/26/2025 Travel Social History Tobacco Use Types Packs/Day [...] or relatives? Twice a week 01/02/2025 Attends Faith Services Not on file 01/02 Do you belong to any clubs o r organizations such as rastafarian groups, unions, fraternal or athletic groups, or [...] housing, medical care, and heating? Hard 01/02/2025 [facility] - [...] any time in the past 12 m [facility], were you homeless or living in a assisted (including now)? No 01/02/2025 [facility] Utilities Answer Date Recorded In the [...] drink first t edgardo in the morning (EYE-CAMPUS POLICE OFFICER) to steady your nerves or to [...] someone who was sick? No / Unsure 01/26/2025 7:26 AM Augie Alexander Do you have any of the following new or worsening symptoms? None of these 01/26/2025 7:26 AM Augie [place] * Travel Screening Question Answer Date of Assessment Author Have you traveled internationally or domestically in the last month? No 01/26/2025 7:26 AM EST Augie Carrera documented as of this encounter Mental Status * Communicable Disease Screening Question Answer Entry Date Author Have you been in contact with someone who was sick? No / Unsure 01/26/2025 7:26 AM EST Carmen Carrera Do you have any of the following new or worsening symptoms? None of these 01/26/2025 7:26 AM EST Carmen Carrera * Travel Screening Question Answer Entry Date Author Have you traveled internationally or domestically in the last month? No 01/26/2025 7:26 AM EST Augie Carrera documented in this encounter Plan of Treatment Upcoming Encounters Date Type Department Care Team (Late st Contact Info) Description 02/17/2025 7:00 AM EST Clinical Support [facility] [address] [place] [address] 02/17/2025 8:40 AM EST Office Visit [facility] [place] [address] [place] [address] Qbjeftblgm-Rbowx-A urgery-Paul 03/06/2025 11:10 AM EST Appointment [facility] [address] [place] [address] Natalya Valentine MD [address] [place] [address] documented as of this encounter Visit Diagnoses [...] documented as of this encounter Care Teams Supervisor Policy Change Clerks Relationship Specialty Start Date End Date Param Eng DO [address] [place] [address] [place] [address] PCP - General 12/22/24 documented as of this encounter
--- OUTSIDE RECORDS SUMMARY | 2025-02-09 07:32 | XMS_ITS | Encounter Summary ---
Author Organization [facility] Address [address] [place] [address] Care Team Providers Care Auto Body Estimator Name Role Phone Param Eng DO Primary Care Provider [phone] Reason for Referral * Medications - Closed Specialty Diagnoses / Procedures Referred By Nicole t Referred To Contact Diagnoses Liver replaced by transplant Encounter for long-term (current) use of high-risk medication Immunosuppression (CMS/HCC) Chacha Heard APRN [address] [address] Phone: tel: fax: Referral ID Status Reason Start Date Expiration Date Visits Re quested Visits Authorized [id number] Closed 1 1 Encounter Details Date Type Department Care Team (Late st Contact Info) Description 02/04/2025 Refill [facility] [address] [address] Chacha Heard APRN [address] [address] Liver replaced by transplant; Encounter for long-term (current) use of high-risk medication; Immunosuppression (CMS/HCC) Social History Tobacco Use Types Packs/Day [...] or relatives? Twice a week 01/02/2025 Attends Congregation Services Not on file 01/02 Do you [...] medical care, and heating? Hard 01/02/2025 [facility] Occupat ional Health - Occupational Stress [...] a care home (including now)? No 01/02/2025 [facility] Utilities Answer Date Recorded In the [...] drink first t edgardo in the morning (EYE-SOCIAL MEDIA CONTENT SPECIALIST) to steady your nerves or to get [...] and Clinic Transplant Center [address] [place] [address] 02/17/2025 8:40 AM EST Office Visit [facility] [address] [place] [address] Xtqghvmezz-Ykqkd-X urgery-Paul 03/06/2025 11:10 AM EST Appointment [facility] [address] [place] [address] Natalya Valentine MD [address] [place] [address] documented as of this encounter Visit Diagnoses Diagnosis Liver replaced by transplant Encounter for long-term (current) use of high-risk medication Encounter for long-term (current) use of other medications Immunosuppression (CMS/HCC) documented in this encounter Additional Health Concerns Assessment Noted Time PHQ-9 Depression Total Score: 9 01/21/20 25 7:11 AM EST A fall risk assessment has been complete d for the patient 02/02/2025 8:00 AM EST A Body Mass Index follow-up plan has been documented for the patient 02/02/2025 11:26 AM EST documented as of this encounter Care Teams Auto Body Estimator Relationship Specialty Start Date End Date Param Eng DO [address] [facility] [address] [place] [address] PCP - General 12/22/24 documented as of this encounter
--- OUTSIDE RECORDS SUMMARY | 2025-02-09 07:32 | XMS_ITS ---
Author Organization [facility] Address [address] [place] [address] Care Team Providers Care Suspender Cutter Name Role Phone Param Eng DO Primary Care Provider [phone] Transplant Episode Liver Recipient [facility] ([place], [place]) [facility] Organ Received: Liver Transplanted on 01/03/2025 Marked as Active Follow-up on 01/03/2025 Liver CoordinatorChmessi Blankenship RN Phone: N/A Fax: N/A Email: N/A [employer] [place] Organ Diagnosis Organ Primary Contributory Liver Alcohol-Associated [...] 01/16/2025 Committee: 12/22/2024 Center waitlisted: 5 Appointments (01/10/2025 - 03/12/2025) When With Visit Type Description 01/20/2025 Transplant - Chacha Heard APRN; Xijvqgzewj-Aiuxc-Ggtyjqm-A pp Initial Post-Op Liver replaced by transplant (Primary Dx); Encounter for long-term (current) use of high-risk medication; Aftercare following organ transplant; Immunosuppression (CMS/HCC); Physical debility; Moderate protein-calorie malnutrition (CMS/HCC); Biliary stricture of transplanted liver (CMS/HCC); Other secondary hypertension; Anemia, unspecified type; Hypomagnesemia; Benign essential tremor 01/20/2025 Transplant - [facility] En counter for long-term (current) use of medications; Status post liver transplantation (CMS/HCC) 01/26/2025 Transplant - Chacha Heard APRN; Pynhwganaq-Expuv-Ndtwjlw-A pp Post-op Liver replaced by transplant (Primary Dx); Encounter for long-term (current) use of high-risk medication; Aftercare following organ transplant; Immunosuppression (CMS/HCC); Physical debility; Biliary stricture of transplanted liver (CMS/HCC); Other secondary hypertension; Benign essential tremor; Anemia, unspecified type; Moderate protein-calorie malnutrition (CMS/HCC); Hypomagnesemia; Hyperbilirubinemia; Primary insomnia 01/26/2025 Transplant - Deidra Vincent Liver replaced by transplant; Encounter for long-term (current) use of high-risk medication; Immunosuppression (CMS/HCC) 02/02/2025 Transplant - Katherine Berrios Li cristobal replaced by transplant; Encounter for long-term (current) use of high-risk medication; Immunosuppression (CMS/HCC) 02/02/2025 Transplant - Chacha Heard APRN; Dvmwexrmsg-Kguky-Efpahgb-A pp Post-op Liver replaced by transplant (Primary Dx); Encounter for long-term (current) use of high-risk medication; Immunosuppression (CMS/HCC); Aftercare following organ transplant; Other secondary hypertension; Benign essential tremor; Biliary stricture of transplanted liver (CMS/HCC); Anemia, unspecified type; Hypomagnesemia; Hyperbilirubinemia; Ear infection 02/17/2025 Transplant LAB 02/17/2025 Transplant - Qjksdzqurc-Swfnk-Fh keysha-Paul Post-op
--- OUTSIDE RECORDS SUMMARY | 2025-02-09 07:32 | XMS_ITS ---
Author Organization Unknown ENCOUNTERS Encounter Performer Location Date Diagnosis Diagnosis Status Pre Admit [address] [place] [address] [id number] Emergency [address] [place] [address] [id number] VANGIE *Note: Encounters from your own facility or health system may be excluded. Allergies, Adverse Reactions, Alerts Allergen Type Severity Identification Date amoxicillin drug allergy [id number] Medications Name Date Quantity Days Supplied GPI Number
--- OUTSIDE RECORDS SUMMARY | 2025-02-09 07:32 | XMS_ITS | Encounter Summary ---
Author Organization Healthcare Address [address] [place] [address] Care Team Providers Care Surgical Scrub Tech Name Role Phone Pcp, No Primary Care Provider Unavailabl e Encounter Details Date Type Department Care Team (Late st Contact Info) Description 12/12/2024 Telephone [facility] [address] [facility] [address] [place] [address] Ping Daley, RN HOSPITAL LIVER [id number]-[id number] [address] [place] [address] Social History Tobacco Use Types Packs/Day Years [...] time in the past 12 m [facility], were you homeless or living in a correction (including now)? No 10/20/2024 [facility] Utilities Answer Date Recorded [...] Description 02/17/2025 7:00 AM EST Clinical Support [facility] [address] [place] [address] 02/17/2025 8:40 AM EST Office Visit [place] [facility] [address] [place] [address] Hhqtneofvj-Micsd-N urgery-Paul 03/06/2025 11:10 AM EST Appointment [facility] [address] [place] [address] Natalya Valentine MD [address] [place] [address] documented as of this encounter Visit Diagnoses [...] documented as of this encounter Care Teams Surgical Scrub Tech Relationship Specialty Start Date End Date Pcp, [place] [address] PCP - General Family Medicine 10/20/23 12/21/24 documented as of this encounter
--- OUTSIDE RECORDS SUMMARY | 2025-02-09 07:32 | XMS_ITS | Encounter Summary ---
Author Organization Healthcare Address [address] [place] [address] Care Team Providers Care Ornamental Metalwork Designer Name Role Phone Pcp, No Primary Care Provider Unavailabl e Param Eng DO Primary Care Provider [phone] Reason for Visit * Reason Onset Date Comments Xifaxan PAP 12/03/2024 Encounter Details Date Type Department Care Team (Late st Contact Info) Description 12/03/2024 Telephone [facility] [address] [place] [address] Reena Valerio, [place] [address] Xifaxan PAP Social History Tobacco Use Types [...] organizations such as oriental orthodox groups, unions, fraColorescience or athletic groups, or school groups? No [...] and heating? Hard 01/02/2025 [facility] Occupat ional Health - [...] in the past 12 m [facility], were you homeless or living in a detention (including now)? No 01/02/2025 [facility] Utilities Answer Date Recorded In [...] drink first t edgardo in the morning (EYE-BRAINER) to steady your nerves or to get [...] 02/17/2025 7:00 AM EST Clinical Support [facility] [address] [place] [address] 02/17/2025 8:40 AM EST Office Visit [facility] [address] [place] [address] Neniywreuz-Rhlth-L urgery-Paul 03/06/2025 11:10 AM EST Appointment [facility] [address] [place] [address] Natalya Valentine MD [address] [place] [address] documented as of this encounter Visit Diagnoses [...] documented as of this encounter Care Teams Ornamental Metalwork Designer Relationship Specialty Start Date End Date Pcp, [place] [address] PCP - General Family Medicine 10/20/23 12/21/24 Param Eng, [address] [facility] [address] [place] [address] PCP - General 12/22/24 documented as of this encounter
--- OUTSIDE RECORDS SUMMARY | 2025-02-09 07:32 | XMS_ITS | Encounter Summary ---
Author Organization Healthcare Address [address] [place] [id number] Care Team Providers Care Ceramic Coater Name Role Phone Velasquez Param Augie HORTON Primary Care Provider [phone] Encounter Details Date Type Department Care Team (Late st Contact Info) Description 01/26/2025 Clinical Support [facility] [address] [place] [address] Kelvin Ibarra, RD CH - CLINICAL NUTRITION [address] [place] [address] Social History Tobacco Use Types Packs/Day Years [...] or relatives? Twice a week 01/02/2025 Attends [employer] Services Not on file 01/02 Do you belong to any clubs o r organizations such as pentecostalism groups, unions, fraternal or athletic groups, or [...] housing, medical care, and heating? Hard 01/02/2025 [facility] - Occupational [...] a nursing home (including now)? No 01/02/2025 [facility] Utilities Answer Date Recorded In the past 12 months has th e [employer], gas, oil, or water company threatened to [...] drink first t edgardo in the morning (EYE-LOADING AND UNLOADING SUPERVISOR) to steady your nerves or to get rid of a hangover? 1 01/02/2025 CAGE Questionnaire Score 4 025 Sex and Gender Information Value Date Recorded Sex Assigned at Not on file Legal Sex Male 2:45 PM EDT Gender Identity Not on file Sexual Orientation Not on file documented as of this encounter Miscellaneous Notes * Clinician Note - Kelvin Ibarra, RD - 01/26/2025 11:47 AM EST Transplant Clinic Nutrition Evaluation Evaluation Type: Follow-Up Nutrition Assessment Organ Group: Liver HPI Cesar Tay is a 45 y.o. 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 Past Medical/Surgical History Past Medical History[1] Surgical History[2] Labs Lab Results Component Value Date GLUCOSE 108 (H) 01/26/2025 CALCIUM 8.7 (L) 01/26/2025 NA 145 01/26/2025 K 3.9 01/26/2025 CO2 23 01/26/2025 CL 109 (H) 01/26/2025 BUN 29 (H) 01/26/2025 CREATININE 0.80 01/26/2025 Lab Results Component Value Date CALCIUM 8.7 (L) 01/26/2025 PHOS 4.0 01/16/2025 Lab Results Component Value Date ALT 30 01/26/2025 AST 14 01/26/2025 GGT 106 (H) 01/26/2025 ALKPHOS 84 01/26/2025 BILITOT 2.4 (H) 01/26/2025 Lab Results Component Value Date CHOL 83 10/20/2024 Lab Results Component Value Date HDL 27 (L) 10/20/2024 Lab Results Component Value Date LDLCALC 40 10/20/2024 Lab Results Component Value Date TRIG 72 10/20/2024 Lab Results Component Value Date CRATIO 3 10/20/2024 Lab Results Component Value Date HGBA1C <4.0 10/21/202401/20: Low ma.5 01/26: Mag trending 1.7 Medications Reviewed current outpatient medications. Pertinent medications include: Current Medications[3] Nutrition History Previous Visit with Dietitian? Yes, TXP RD's Home Diet: Post-Transplant Appetite: Good Nutrition Supplements: Boost Glucose Control x3/day Nutrition-Related Symptoms: Early Satiety and Taste Changes Food Allergies: No Known Food Allergies Food Preferences: No cultural or worship food preferences Fluid Retention: 2+ BLLE edema - per provider assessment Additional Information: Visited patient in clinic today. Patient accompanied by his at time ofvisit. Patient reports ongoing strong appetite. He continues eating regular meals and drinking his protein shakes at least x3/day, and is eating snacks all day - per patient. His continues to try making more homemade meals and is working to avoid more heavily processed foods. RD shared information with them about how to access healthy, simple, low cost recipes from [employer] [place] website to support their healthier cooking efforts. RD re-enforced the importance of focusing high calorie/high protein, lower sodium meals. RD provided opportunity for patient and spouse to to ask any additional questions. RD will continue to monitor patient's nutrition status and follow up with him in clinic as needed. Anthropometric Measurements Height: 195.6 cm Current Weight: 94 kg Elk Body Weight: 94.5 kg (99%) Adjusted Body Weight: N/A BMI: 24.6 Weight Evaluation: Normal (BMI 18.5 - 24.9) Weight History: Wt Readings from Last 12 Encounters: 01/26/25 94 kg (207 lb 3.7 [...] 10/20/24 117 kg (257 lb 15 oz) *01/26: 6 lb gain in 4 days (since last clinic visit). Patient reports regular post-transplant weight fluctuations. Likely fluid related. Will continue to monitor trends in clinic. Estimated Needs Kcal/K - 35 Kcal recommended: 2820 - 3290 Kcal needs based on: Current Body Weight - 94 kg Grams Protein/K.5 - 2.0 Grams Protein recommended: 141 - 188 Protein needs based on: Current Body Weight [...] Rfl: 2 ergocalciferol (Vitamin D-2) 1.25 MG (71170 UT) capsule, Take 1 capsule by mouth [...] Rfl: rOPINIRole (Requip) 0.25 MG tablet, Take 1 tablet by mouth nightly., Disp: 30 tablet, Rfl: 2 sulfamethoxazole-trimethoprim (Bactrim) 400-80 MG [...] Description 02/17/2025 7:00 AM EST Clinical Support [facility] [place] [address] [place] [address] 02/17/2025 8:40 AM EST Office Visit [facility] [place] [address] [address] Tzzogvjurp-Rkixq-K urgery-Paul 03/06/2025 11:10 AM EST Appointment [facility] [address] [place] [address] Natalya Valentine MD [address] [place] [address] documented as of this encounter Visit Diagnoses [...] documented as of this encounter Care Teams Ceramic Coater Relationship Specialty Start Date End Date Param Eng DO [address] [place] [address] [place] [address] PCP - General 12/22/24 documented as of this encounter
--- OUTSIDE RECORDS SUMMARY | 2025-02-09 07:33 | XMS_ITS | Encounter Summary ---
Author Organization Healthcare Address [address] [place] [address] Care Team Providers Care Manager Qa Name Role Phone Pcp, No Primary Care Provider Unavailabl Param Hernandes DO Primary Care Provider [phone] Anh Harvey LPN Unavailable Unavailable Encounter Details Date Type Department Care Team (Late st Contact Info) Description 09/03/2024 Orders Only External Location [address] [place] [address] Provider, External Social History Tobacco Use Types [...] Description 02/17/2025 7:00 AM EST Clinical Support [facility] [address] [place] [address] 02/17/2025 8:40 AM EST Office Visit [facility] [address] [place] [address] Tmheroxdrc-Oyrer-D urgery-Paul 03/06/2025 11:10 AM EST Appointment [facility] [address] [place] [address] Natalya Valentine MD [address] [place] [address] documented as of this encounter Procedures Procedure [...] as of this encounter Care Teams Manager Qa Relationship Specialty Start Date End Date Pcp, [place] [address] PCP - General Family Medicine 10/20/23 12/21/24 Param Eng, [address] [facility] [address] [place] [address] PCP - General 12/22/24 Anh Harvey LPN VALUE-BASED [place] [address] None TCM Nurse 01/19/25 01/19/25 documented as of this encounter
--- OUTSIDE RECORDS SUMMARY | 2025-02-09 07:33 | XMS_ITS | Encounter Summary ---
Author Organization Healthcare Address [address] [place] [address] Care Team Providers Care [employer] Computer Science Teacher Name Role Phone Pcp, No Primary Care Provider Unavailabl Param Hernandes DO Primary Care Provider [phone] Anh Harvey LPN Unavailable Unavailable Encounter Details Date Type Department Care Team (Late st Contact Info) Description 09/03/2024 Orders Only External Location [address] [place] [address] Provider, External Social History Tobacco Use Types [...] Description 02/17/2025 7:00 AM EST Clinical Support [facility] [address] [place] [address] 02/17/2025 8:40 AM EST Office Visit [facility] [address] [place] [address] Xssgiqruxd-Yyidl-E urgery-Paul 03/06/2025 11:10 AM EST Appointment [facility] [address] [place] [address] Natalya Valentine MD [address] [place] [address] documented as of this encounter Procedures Procedure Name Priority Date/Time Associated Diagnosis Comments XR OUTSIDE IMAGES 09/03/2024 11:09 AM EDT documented in this encounter Results * XR OUTSIDE IMAGES (09/03/2024 11:09 AM EDT) Anatomical Region Laterality Modality Radiographic Cheryl ging 09/03/2024 11:0 9 AM EDT us External Provider IMG XR PROCEDURES Final Result documented in this encounter Visit Diagnoses Not on filedocumented in this encounter Additional Health Concerns Infection Onset Date Last Indicated Resolved Time C. difficile 11/04/2024 11/04/2024 12/18/2024 7:20 PM EST COVID-19 Rule-Out 01/02/2025 01/02/2025 01/02/2025 11:10 AM EST documented as of this encounter Care Teams [employer] Computer Science Teacher Relationship Specialty Start Date End Date Pcp, [place] [address] PCP - General Family Medicine 10/20/23 12/21/24 Param Eng, [facility] [address] [place] [address] PCP - General 12/22/24 Anh Harvey, JUANPABLO VALUE-[place] [address] None TCM Nurse 01/19/25 01/19/25 documented as of this encounter
--- OUTSIDE RECORDS SUMMARY | 2025-02-09 07:33 | XMS_ITS | Encounter Summary ---
Author Organization Healthcare Address [address] [place] [id number] Care Team Providers Care Combiner Operator Name Role Phone Velasquez Param Augie HORTON Primary Care Provider [phone] Encounter Details Date Type Department Care Team (Late st Contact Info) Description 01/20/2025 Clinical Support [facility] [address] [place] [address] Kelvin Ibarra, RD CH - CLINICAL NUTRITION [address] [place] [address] Social History Tobacco Use Types Packs/Day Years [...] or relatives? Twice a week 01/02/2025 Attends Jainism Services Not on file 01/02 Do you belong to any clubs o r organizations such as religion groups, unions, fraternal or athletic groups, or [...] housing, medical care, and heating? Hard 01/02/2025 [facility] Occupat ional Health - Occupational Stress [...] a group home (including now)? 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 Kelvin Ibarra, FLASH, LD [1] Past Medical History: Diagnosis [...] Rfl: 2 ergocalciferol (Vitamin D-2) 1.25 MG (31278 UT) capsule, Take 1 capsule by mouth [...] Description 02/17/2025 7:00 AM EST Clinical Support [facility] [place] [address] [place] [address] 02/17/2025 8:40 AM EST Office Visit [facility] [place] [address] [place] [address] Jwjqeakknn-Ocxio-U urgery-Paul 03/06/2025 11:10 AM EST Appointment [facility] [address] [place] [address] Natalya Valentine MD [address] [place] [address] documented as of this encounter Visit Diagnoses [...] documented as of this encounter Care Teams Combiner Operator Relationship Specialty Start Date End Date Param Eng DO [address] [place] [address] PCP - General 12/22/24 documented as of this encounter
--- OUTSIDE RECORDS SUMMARY | 2025-02-09 07:33 | XMS_ITS | Encounter Summary ---
Author Organization [facility] Address [address] [place] [address] Care Team Providers Care Buffer Machine Name Role Phone VelasquezParam Augie HORTON Primary Care Provider [phone] Anh Harvey LPN Unavailable Unavailable Reason for Visit * Reason Comments TCM Encounter Details Date Type Department Care Team (Late st Contact Info) Description 01/19/2025 Patient Outreach [facility] [address] [place] [address] Anh Harvey LPN VALUE-BASED [place] [address] None TCM Social History Tobacco Use Types [...] housing, medical care, and heating? Hard 01/02/2025 [facility] - [...] the past 12 m [facility], were you homeless or living in a intermediate (including now)? No 01/02/2025 [facility] Utilities Answer Date Recorded In the past 12 months has th e [employer], gas, oil, or water [employer] threatened to shut off services in your [...] drink first t edgardo in the morning (EYE-LAY OUT FORMER) to steady your nerves or to get [...] EST 01/19/2025: Enrollment error. No call per [employer] [place] Page due to patient following up with transplant tomorrow 01/20/2025. ARSLAN encounter closed. documented in this encounter Plan of Treatment Upcoming Encounters Date Type Department Care Team (Late st Contact Info) Description 02/17/2025 7:00 AM EST Clinical Support [facility] [address] [place] [address] 02/17/2025 8:40 AM EST Office Visit [facility] [address] [place] [address] Ivltjlretn-Qpxuk-E urgery-Paul 03/06/2025 11:10 AM EST Appointment [facility] [address] [place] [address] Natalya Valentine MD [address] [place] [address] documented as of this encounter Visit Diagnoses [...] documented as of this encounter Care Teams Buffer Machine Relationship Specialty Start Date End Date Param Eng DO [address] [place] [address] PCP - General 12/22/24 Anh Harvey LPN VALUE-[employer]ED [place] [address] None TCM Nurse 01/19/25 01/19/25 documented as of this encounter
--- OUTSIDE RECORDS SUMMARY | 2025-02-09 07:33 | XMS_ITS | Clinical Summary ---
Author Organization [facility] Address [address] 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 valGANciclovir (Valcyte) 450 MG tabletIndications :Liver replaced by transplant Take 1 tablet by mouth daily. Do not crush or chew. 30 tablet 2 025 Active acetaminophen (Tylenol) 500 MG tablet Take 1 tablet by mouth every 6 hours as needed for headaches or pain. Max 2000 mg per 24 hours. Active aspirin 81 MG EC tablet Take 1 tablet by mouth daily. 30 tablet 11 025 Active sulfamethoxazole- trimethoprim (Bactrim) 400-80 MG tabletIndications :Liver replaced by transplant Take 1 tablet by mouth daily. 30 tablet 5 025 Active carvedilol (Coreg) 25 MG tablet Take 1 tablet by mouth 2 times a day. 60 tablet 2 025 Active Multiple Vitamins-Minerals (Mens Multi Health Formula) tablet Take 1 tablet by mouth daily. Active amLODIPine (Norvasc) 10 MG tablet Take 1 tablet by mouth daily. 30 tablet 5 12/05/2 025 Active ergocalciferol (Vitamin D-2) 1.25 MG (78473 UT) capsule Take 1 capsule by mouth 1 time per week. Fridays 4 capsule 1 Active methocarbamol (Robaxin) 500 MG tablet Take 1 tablet by mouth 3 times a day as needed for muscle spasms. 60 tablet 1 Active nutrional drink glucose control (Boost Glucose [...] times a day. 60 tablet 2 Active escitalopram (Lexapro) 10 MG tablet Take 1 tablet by mouth daily. See PCP for refills/managm ent 30 tablet 2 Active tacrolimus 1 MG PO capsuleIndication s:Liver Transplant Status Take 3 capsules by mouth every morning AND 3 capsules every evening. Z94.4. transplant date 01/03/25. 180 capsule 11 2025 Active traZODone (Desyrel) 50 MG tabletIndications :Insomnia, unspecified type Take 1 tablet by mouth nightly. See PCP for refills/manage ment 30 tablet 2 Active rOPINIRole (Requip) 0.25 MG tabletIndications :Restless Leg Syndrome Take 2 tablets by mouth nightly. 60 tablet 2 Active amLODIPine (Norvasc) 5 MG tablet Take 1 tablet by mouth daily. 30 tablet 11 025 2025 Active predniSONE (Deltasone) 10 MG tablet Take 1 tablet by mouth daily. 2025 Active ferrous sulfate 324 MG tablet delayed-release Take 1 tablet by mouth daily with breakfast. Do not crush, chew, or split. 30 tablet 025 2025 Active mycophenolate (CellCept) 250 MG capsuleIndication s:Liver replaced by transplant,Encoun ter for long-term (current) use of high-risk medication,Immuno suppression (CMS/HCC) Take 4 capsules by mouth 2 times a day. Z94.4. Txp Date: 01/03/25 240 capsule 11 2025 Active buPROPion SR (Wellbutrin SR) 150 MG 12 hr tabletIndications :Tobacco use disorder Take 1 tablet by mouth daily for 3 days, THEN 1 tablet 2 times a day. Do not crush, chew, or split. 123 tablet 1 025 2024 Discontinued ciprofloxacin (Cipro) 500 MG tabletIndications :Spontaneous bacterial peritonitis Take 1 tablet by mouth daily. 30 tablet 2 025 2024 Discontinued lactulose (Chronulac) 10 GM/15ML solution Take 15 mL by mouth 3 times a day. 1350 mL 3 2024 Discontinued nutrional drink glucose control (Boost Glucose Control) liquid liquid Take 237 mL by mouth 2 times a day. 13435 mL 3 2024 Discontinued(D uplicate order) rifAXIMin (Xifaxan) 550 MG tabletIndications :Hepatic encephalopathy (CMS/HCC) Take 1 tablet by mouth 2 times a day. 180 tablet 3 025 2024 Discontinued ferrous sulfate 324 MG tablet delayed-release Take 1 tablet by mouth daily with breakfast. Do not crush, chew, or split. 30 tablet 025 2024 Discontinued(R eorder) escitalopram (Lexapro) 10 MG tablet Take 1 tablet by mouth daily. 30 tablet 3 025 2024 Discontinued(R eorder) traZODone (Desyrel) 50 MG tabletIndications :Insomnia, unspecified type Take 1 tablet by mouth nightly. 90 tablet 1 025 2024 Discontinued(R eorder) spironolactone (Aldactone) 50 MG tablet Take 1 [...] Z94.4. transplant date 01/03/25 120 capsule 2 2024 Discontinued senna-docusate sodium (Senokot-S) 8.6-50 MG tablet Take 1 tablet by mouth 2 times a day as needed for constipation. 60 tablet 2024 Discontinued fluconazole (Diflucan) 200 MG tabletIndications [...] not crush, chew, or split. 30 tablet 2024 Discontinued fluconazole (Diflucan) 200 MG tabletIndications :Liver replaced by transplant Take 1 tablet by mouth daily for 17 days. 17 tablet 2024 Discontinued mycophenolate (CellCept) 250 MG capsule Take 3 capsules by mouth 2 times a day. Z94.4. Txp Date: 01/03/25 180 capsule 2 2024 Discontinued predniSONE (Deltasone) 10 MG tablet Take 6 tablets by mouth daily for 5 days, THEN 5 tablets daily for 5 days, THEN 4 tablets daily for 5 days, THEN 3 tablets daily for 5 days, THEN 2 tablets daily for 5 days, THEN 1 tablet daily. 130 tablet 2024 Discontinued tacrolimus 1 MG PO capsuleIndication [...] 2 doses. 2 tablet 025 2024 Discontinued rOPINIRole (Requip) 0.25 MG tabletIndications :Restless Leg Syndrome Take 1 tablet by mouth nightly. 30 tablet 2 025 2024 Discontinued mycophenolate (CellCept) 250 MG capsuleIndication s:Liver replaced by transplant,Encoun ter for long-term (current) use of high-risk medication,Immuno suppression (CMS/HCC) Take 4 capsules by mouth 2 times a day. Z94.4. Txp Date: 01/03/25 025 2024 Discontinued(R eorder) tacrolimus 1 MG PO capsuleIndication s:Liver Transplant Status Take 3 capsules by mouth every morning AND 3 capsules every evening. Z94.4. transplant date 01/03/25. 025 2024 Discontinued(R eorder) predniSONE (Deltasone) 10 MG tablet Take 4 tablets by mouth daily for 3 days, THEN 3 tablets daily for 3 days, THEN 2 tablets daily. 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 Date Type Department Care Team Description 02/04/[address] [address] Chacha Heard APRN Liver replaced by transplant; Encounter for long-term (current) use of high-risk medication; Immunosuppression (CMS/HCC) 02/02/2025 9:20 AM EST Office Visit [address] [address] Chacha Heard APRN Transplant-Liver- Surgery-Paul Liver replaced by transplant (Primary Dx); Encounter for long-term (current) use of high-risk medication; Immunosuppression (CMS/HCC); Aftercare following organ transplant; Other secondary hypertension; Benign essential tremor; Biliary stricture of transplanted liver (CMS/HCC); Anemia, unspecified type; Hypomagnesemia; Hyperbilirubinemia; Ear infection 02/02/2025 Clinical Support [address] [address] Kelvin Ibarra, RD 02/02/2025 Travel 01/28/[address] [address] Samira Sanders, RN Liver replaced by transplant; Aftercare following organ transplant; Immunosuppression (CMS/HCC); Insomnia, unspecified type 01/26/2025 9:20 AM EST Office Visit [address] [address] Chacha Heard APRN Transplant-Liver- Surgery-Paul Liver replaced by transplant (Primary Dx); Encounter for long-term (current) use of high-risk medication; Aftercare following organ transplant; Immunosuppression (CMS/HCC); Physical debility; Biliary stricture of transplanted liver (CMS/HCC); Other secondary hypertension; Benign essential tremor; Anemia, unspecified type; Moderate protein-calorie malnutrition (CMS/HCC); Hypomagnesemia; Hyperbilirubinemia; Primary insomnia 01/26/2025 Clinical Support [place] [address] [address] Kelvin Ibarra, FLASH 01/26/2025 Travel 01/20/2025 8:40 AM EST Office Visit [place] [address] [address] Chacha Heard APRN Transplant-Liver- Surgery-Paul Liver replaced by transplant (Primary Dx); Encounter for long-term (current) use of high-risk medication; Aftercare following organ transplant; Immunosuppression (CMS/HCC); Physical debility; Moderate protein-calorie malnutrition (CMS/HCC); Biliary stricture of transplanted liver (CMS/HCC); Other secondary hypertension; Anemia, unspecified type; Hypomagnesemia; Benign essential tremor 01/20/2025 Clinical Support [address] [address] Kelvin Ibarra, FLASH 01/20/2025 Travel 01/19/2025 Patient Outreach [facility] [address] [place] [address], [address] [place] [address] Anh Harvey LPN [facility] 01/15/2025 Orders Only [place] [address] [address] Yari Reilly, FLASH 01/13/2025 Travel 2025 11:55 AM EST Anesthesia Event [facility] [address] [place] [address] Da De MD 2025 Travel 01/10/2025 Travel 01/08/2025 Travel 01/06/2025 Travel 01/05/2025 Lab Requisition [facility] [address] [place] [address] Diego Gray MD Encounter for general adult medical examination without abnormal findings 01/05/2025 Travel 01/05/2025 Lab Requisition [facility] Blood Bank [address] [place] [address] Luis Steel MD General medical exam 01/04/2025 Travel 01/03/2025 7:01 AM EST Anesthesia Event [facility] OPERATING ROOM [address] [place] [address] Josafat Rivera MD Sarno, Alessandro F, 01/03/2025 7:00 AM EST - 01/03/2025 4:00 PM EST Surgery [facility] OPERATING RO[facility] [address] [place] [address] Satnam Beckford MD TRANSPLANT, LIVER 01/03/2025 Travel 01/02/2025 9:05 AM EST - 01/16/2025 5:32 PM EST Hospital Encounter [facility] Inpatient [address] [place] [address] Satnam Beckford MD Shah, Malay B, MD Decompensation of cirrhosis of liver (CMS/HCC) (Primary Dx); Elevated INR; Liver replaced by transplant Discharge Disposition: Home or Self Care 01/02/2025 Travel 01/01/2025 Telephone [facility] [address] [address] CatrachoKwameMattie 12/30/2024 8:00 AM EST Office Visit [facility] Transplant [place] [address] [address] Brionna Martinez PA Weakness (Primary Dx); Insomnia, unspecified type; Awaiting liver transplant; Decompensation of cirrhosis of liver (CMS/HCC); Primary insomnia; Depressive disorder 12/30/2024 Telephone [facility] Transplant [address] [place] [address] Ping Daley, RN 12/30/2024 Travel 12/24/2024 Travel 12/22/2024 Telephone [facility] Medicine Virtual Dept. [address] [place] [address] Leroy Aponte MD Prior-authorization/i nsurance Verification 12/19/2024 Results Follow-Up [facility] [address] [facility] [address] [place] [address] Ping Daley RN 12/18/2024 9:56 AM EST Anesthesia Event [facility] [address] [place] [address] Liu East MD 12/18/2024 Travel 12/17/2024 9:32 AM EST - 12/20/2024 2:30 AM EST Hospital Encounter [facility] Inpatient [address] [place] [address] Dionicio Lai MD Myers, Kurt A, MD [...] Care 12/17/2024 9:00 AM EST Office Visit [facility] [address] [address] Prieto Dillon MD Decompensation of cirrhosis of liver (CMS/HCC) (Primary Dx); Hepatic encephalopathy (CMS/HCC); Severe alcohol use disorder, in sustained remission; Portal hypertension (CMS/HCC); Acute on chronic anemia; Symptomatic anemia 12/17/2024 Travel 12/12/2024 Telephone [facility] [address] [address] Ping Daley, RN 12/12/2024 Results Follow-Up [facility] [address] [facility] [place] [address] Ping Daley, RN 12/10/2024 Travel 12/09/2024 Orders Only [place] [address] [facility] [address] Ping Daley, RN Hepatic encephalopathy (CMS/HCC) (Primary Dx); Decompensation of cirrhosis of liver (CMS/HCC) 12/08/2024 Travel 12/04/2024 [facility]ill [place] [address] [facility] [address] [address] Brionna Martinez PA Hepatic encephalopathy (CMS/HCC) 12/03/2024 8:00 AM EDT Office Visit [place] [id number] [address] Brionna Martinez PA Hepatic encephalopathy (CMS/HCC) (Primary Dx); Decompensation of cirrhosis of liver (CMS/HCC); Anemia, unspecified type 12/03/2024 Telephone [facility] Medicine Specialties [address] [place] [address] Reena Valerio, PharmD Xifaxan PAP 12/03/2024 Travel 12/02/2024 Orders Only [place] [id number] [address] Ping Daley, RN Decompensation of cirrhosis of liver (CMS/HCC) (Primary Dx); Portal hypertension (CMS/HCC) 12/02/2024 Travel 11/28/2024 Results [address]Up [address] [address] Ping Daley, RN 11/26/[address] [address] Ping Daley, RN Insomnia, unspecified type 11/25/2024 11:30 AM EDT Office Visit [facility] Transplant [place] [phone] [address] Miquel Lopez MD Decompensation of cirrhosis of liver (CMS/HCC) (Primary Dx); Portal hypertension (CMS/HCC); Tobacco use disorder, continuous; Severe alcohol use disorder, in sustained remission; Spontaneous bacterial peritonitis 11/25/2024 Travel 11/21/2024 Refill [facility] [place] [address] [address] Ping Daley RN Spontaneous bacterial peritonitis 11/17/2024 Travel 11/11/2024 1:30 PM EDT Pharmacist Visit [address] [address] Greg Sibley, PharmD 11/11/2024 11:00 AM EDT Office Visit [facility] Transplant [address] [address] Miquel Lopez MD Decompensation of cirrhosis of liver (CMS/HCC) (Primary Dx); Spontaneous bacterial peritonitis (CMS/HCC); Portal hypertension (CMS/HCC) 11/11/2024 9:00 AM EDT Social Work [address] [address] Laura Muñiz LCSW 11/11/2024 Travel 11/10/2024 Travel from Last 3 Months Immunizations Immunization Administration [...] housing, medical care, and heating? Hard 01/02/2025 [facility] - Occupational Stress [...] No 01/02/2025 Housing Stability Vital Sign Answer Virgliio e Recorded In the last 12 months, [...] in a correction (including now)? No 01/02/2025 [facility] Utilities Answer Date Recorded In the past 12 months has th e dlo[place]aiti, gas, oil, or water company threatened to [...] drink first t edgardo in the morning (EYE-PATENT SEARCHER) to steady your nerves or to get [...] Mass Index 25.87 02/02/2025 8:00 AM EST Plan of Treatment Upcoming Encounters Date Type Department Care Team (Late st Contact Info) Description 02/17/2025 7:00 AM EST Clinical Support [facility] [address] [place] [address] 02/17/2025 8:40 AM EST Office Visit [facility] [address] [place] [address] Khtwmbfkaw-Quzrl-L urgery-Paul 03/06/2025 11:10 AM EST Appointment [facility] [address] [place] [address] Natalya Valentine MD [address] [place] [address] Health Maintenance Due Date Last Done Comments [facility]-Infant/Child/Adol SDOH Screenings 1979 [id number] Vaccine (#1) 1979 [facility]-DTaP,Tdap,and Td Vaccines (1 - Tdap) 1998 [facility]-Hepatitis A Vaccines [...] [facility]-Adult SDOH Screenings 07/02/2025 01/02/2025 [facility]-Depression Screening 02/02/2026 02/02/2025, 10/2024 Colonoscopy 12/18/2034 12/18/2024 [facility]-Colorectal Cancer Screening 12/18/2034 [facility]-HIV Screening Completed 01/02/2025, 10/20/2024 [facility]-Hepatitis C Screening Completed 2024, 01/02/2025, 10/20/2024 [facility]-Obesity Intervention Completed 025, 02/02/2025, 01/26/2025, Additional history exists HPV Vaccines (No Doses Required) Completed [facility]-HIB Vaccines Aged Out No longer e ligible based on patient's age to complete this topic [facility]-IPV Vaccines Aged Out No longer e ligible based on patient's age to complete this topic [facility]-Rotavirus Vaccines Aged Out No lo nger eligible based on patient's age to complete this topic Procedures Procedure Name Priority Date/Time Associated Diagnosis Comments MAGNESIUM, PLASMA Routine 02/02/2025 7:45 AM EST Liver replaced by transplant Encounter for long-term (current) use of high-risk medication Immunosuppression (CMS/HCC) COMPREHENSIVE METABOLIC PANEL, PLASMA Routine 02/02/2025 7:45 AM EST Liver replaced by transplant Encounter for long-term (current) use of high-risk medication Immunosuppression (CMS/HCC) CBC W/O DIFFERENTIAL Routine 02/02/2025 7:45 AM EST Liver replaced by transplant Encounter for long-term (current) use of high-risk medication Immunosuppression (CMS/HCC) TACROLIMUS LEVEL Routine 02/02/2025 7:45 AM EST Liver replaced by transplant Encounter for long-term (current) use of high-risk medication Immunosuppression (CMS/HCC) GAMMA GLUTAMYLTRANSFERASE, PLASMA Routine 02/02/2025 7:45 AM EST Liver replaced by transplant Encounter for long-term (current) use of high-risk medication Immunosuppression (CMS/HCC) MAGNESIUM, PLASMA Routine 01/26/2025 7:36 AM EST Liver replaced by transplant Encounter for long-term (current) use of high-risk medication Immunosuppression (CMS/HCC) COMPREHENSIVE METABOLIC PANEL, PLASMA Routine 01/26/2025 7:36 AM EST Liver replaced by transplant Encounter for long-term (current) use of high-risk medication Immunosuppression (CMS/HCC) CBC W/O DIFFERENTIAL Routine 01/26/2025 7:36 AM EST Liver replaced by transplant Encounter for long-term (current) use of high-risk medication Immunosuppression (CMS/HCC) TACROLIMUS LEVEL Routine 01/26/2025 7:36 AM EST Liver replaced by transplant Encounter for long-term (current) use of high-risk medication Immunosuppression (CMS/HCC) GAMMA GLUTAMYLTRANSFERASE, PLASMA Routine 01/26/2025 7:36 AM EST Liver replaced by transplant Encounter for long-term (current) use of high-risk medication Immunosuppression (CMS/HCC) COMPREHENSIVE METABOLIC PANEL, PLASMA Routine 01/20/2025 6:39 [...] ANESTHESIA PLACEHOLDER Routine 2025 11:59 AM EST WI AN ELECTIVE ENDOTRACHEAL AIRWAY Routine 2025 11:59 [...] W/O DIFFERENTIAL Timed 01/05/2025 12:00 PM EST WI CRITICAL CARE, E/M 30-74 MINUTES Routine 01/05/2025 [...] PEP THERAPY Routine 01/04/2025 10:00 AM EST WI CRITICAL CARE, E/M 30-74 MINUTES Routine 01/04/2025 [...] 1 VIEW Routine 01/03/2025 3:39 PM EST WI CRITICAL CARE, E/M 30-74 MINUTES Routine 01/03/2025 [...] UNSOLICITED RESULTS Routine 01/03/2025 8:37 AM EST PB ANESTHESIA NON-TIMED PROCEDURE PLACEHOLDER Routine 01/03/2025 8:09 AM EST TRANSFUSE RED [...] PROCEDURE PLACEHOLDER Routine 01/03/2025 7:30 AM EST WI AN CENTRAL LINE TRIPLE LUMEN Routine 01/03/2025 7:30 AM EST WI INSERT/PLACE FLOW DIRECT CATH Routine 01/03/2025 7:30 AM EST ANESTHESIA ULTRASOUND GUIDED Routine 01/03/2025 7:30 AM EST PB ANESTHESIA NON-TIMED PROCEDURE PLACEHOLDER Routine 01/03/2025 7:30 AM EST WI AN CENTRAL LINE DOUBLE LUMEN Routine 01/03/2025 7:30 AM EST ANESTHESIA ULTRASOUND GUIDED Routine 01/03/2025 7:30 AM EST PB ANESTHESIA NON-TIMED PROCEDURE PLACEHOLDER Routine 01/03/2025 7:30 AM EST WI AN CENTRAL LINE TRIPLE LUMEN Routine 01/03/2025 7:30 AM EST PB ANESTHESIA NON-TIMED PROCEDURE PLACEHOLDER Routine 01/03/2025 7:15 AM EST PB ANESTHESIA PLACEHOLDER Routine 01/03/2025 7:08 AM EST WI AN ELECTIVE ENDOTRACHEAL AIRWAY Routine 01/03/2025 7:08 [...] PCR STAT 01/02/2025 9:40 AM EST HC HBSAG STAT 01/02/2025 9:40 AM EST HEPATITIS B SURFACE ANTIBODY, QUANTITATIVE Routine 01/02/2025 9:40 AM EST HC HEP B [...] EST EXTRA TUBE LAVENDER TOP Routine 12/20/19 25 9:26 AM EST EXTRA TUBES Routine 12/19/2024 [...] continuous Alcohol use disorder, severe, dependence (CMS/HCC) from Last 3 Months Results * Tacrolimus (02/02/2025 7:45 AM EST) Only the most recent of16 resultswithin the time period is included. Tacrolimus 13.3 4.0 - 17.0 ng/mL 02/02/2025 12:08 PM EST [facility] Comment: Tacrolimus therapeutic range: Initial (<3 mo.) Maintenance Kidney 8-13 ng/mL 4-8 ng/mL Liver 8-13 ng/mL 4-8 ng/mL Heart 8-15 ng/mL 7-13 ng/mL Lung;Heart/Lung 8-17 ng/mL 8-13 ng/mL Blood Venous blood specimen / Unknown Venipuncture / Unknown 02/02/2025 7:45 AM EST 02/02/2025 8:29 AM EST Narrative [facility] - 02/02/2025 12:08 PM EST Test performed by LC-MS/MS at the [facility]. This test was developed and its performance characteristics determined by [facility]. It has not been cleared or approved by the FDA. The laboratory is regulated under CLIA as qualified to perform high-complexity testing. This test is used for clinical purposes. Test performed by LC-MS/MS at the [facility]. This test was developed and its performance characteristics determined by [facility]. It has not been cleared or approved by the FDA. The laboratory is regulated under CLIA as qualified to perform high-complexity testing. This test is used for clinical purposes. us Chacha Heard TITA LAB BLOOD ORDERABLES Final Res ult [facility] [address] [place] [address] * (ABNORMAL) CBC W/O Differential (02/02/2025 7:45 AM EST) Only the most recent of32 resultswithin the time period is included. WBC Count 6.34 3.70 - 10.30 10*3/uL LAB HEMATOLOGY METHOD 02/02/2025 8:38 AM EST [facility] RBC Count 3.82(L) 4.60 - 6.10 10*6/uL LAB HEMATOLOGY METHOD 02/02/2025 8:38 AM EST [facility] HGB 12.3(L) 13.7 - 17.5 g/dL LAB HEMATOLOGY METHOD 02/02/2025 8:38 AM EST [facility] HCT 38.0(L) 40.0 - 51.0 % LAB HEMATOLOGY METHOD 02/02/2025 8:38 AM EST [facility] Platelet Count 189 155 - 369 10*3/uL LAB HEMATOLOGY METHOD 02/02/2025 8:38 AM EST [facility] MCV 100(H) 79 - 98 fL LAB HEMATOLOGY METHOD 02/02/2025 8:38 AM EST [facility] MCH 32.2(H) 26.0 - 32.0 pg LAB HEMATOLOGY METHOD 02/02/2025 8:38 AM EST [facility] MCHC 32.4 30.7 - 35.5 g/dL LAB HEMATOLOGY METHOD 02/02/2025 8:38 AM EST [facility] RDW 17.8(H) 11.5 - 14.5 % LAB HEMATOLOGY METHOD 02/02/2025 8:38 AM EST [facility] MPV 9.3 8.8 - 12.5 fL LAB HEMATOLOGY METHOD 02/02/2025 8:38 AM EST [facility] nRBC 0.0 <=0.0 per 100 WBCs LAB HEMATOLOGY METHOD 02/02/2025 8:38 AM EST [facility] Blood Venous blood specimen / Unknown Venipuncture / Unknown 02/02/2025 7:45 AM EST 02/02/2025 8:29 AM EST Hender Heard SENIOR CONSTRUCTION MANAGER LAB BLOOD ORDERABLES Final Res ult Performing Organization Address City/[facility] Co de Phone Number [facility] [address] [place] [address] * (ABNORMAL) Magnesium, Plasma (02/02/2025 7:45 AM EST) Only the most recent of28 resultswithin the time period is included. Magnesium, Plasma 1.8(L) 1.9 - 2.4 mg/dL 02/02/2025 8:38 AM EST [facility] Blood Venous blood specimen / Unknown Venipuncture / Unknown 02/02/2025 7:45 AM EST 02/02/2025 8:12 AM EST Hender Heard SENIOR CONSTRUCTION MANAGER LAB BLOOD ORDERABLES Final Res ult Performing Organization Address [facility] Co de Phone Number [facility] [address] [place] [address] * (ABNORMAL) GGT, Plasma (02/02/2025 7:45 AM EST) Only the most recent of3 resultswithin the time period is included. GGT, Plasma 71(H) 8 - 61 U/L 02/02/2025 8:38 AM EST [facility] Blood Venous blood specimen / Unknown Venipuncture / Unknown 02/02/2025 7:45 AM EST 02/02/2025 8:12 AM EST Hender Heard SENIOR CONSTRUCTION MANAGER LAB BLOOD ORDERABLES Final Res ult Performing Organization Address City/[facility] Co de Phone Number [facility] [facility] [address] [place] [address] * (ABNORMAL) Comprehensive Metabolic Panel, Plasma (02/02/2025 7:45 AM EST) Only the most recent of37 resultswithin the time period is included. Glucose, Plasma 63(L) 74 - 99 mg/dL 02/02/2025 8:38 AM EST [facility] BUN, Plasma 34(H) 7 - 21 mg/dL 02/02/2025 8:38 AM [facility] Creatinine, Plasma 1.12 0.70 - 1.20 mg/dL 02/02/2025 8:38 AM [facility] BUN/Creatinine Ratio 30 02/02/2025 8:38 AM [facility] Sodium, Plasma 139 136 - 145 mmol/L 02/02/2025 8:38 AM [facility] Potassium, Plasma 4.2 3.6 - 4.9 mmol/L 02/02/2025 8:38 AM [facility] Chloride, Plasma 106 97 - 107 mmol/L 02/02/2025 8:38 AM [facility] CO2, Plasma 23 22 - 29 mmol/L 02/02/2025 8:38 AM [facility] Anion Gap 10 6 - 16 mmol/L 02/02/2025 8:38 AM [facility] Total Calcium, Plasma 9.0 8.9 - 10.2 mg/dL 02/02/2025 8:38 AM [facility] Total Protein 6.1(L) 6.3 - 7.9 g/dL 02/02/2025 8:38 AM [facility] Albumin, Plasma 3.8 3.5 - 5.2 g/dL 02/02/2025 8:38 AM [facility] AST, Plasma 14 10 - 50 U/L 02/02/2025 8:38 AM [facility] ALT, Plasma 22 10 - 50 U/L 02/02/2025 8:38 AM [facility] Alkaline Phosphatase, Plasma 83 40 - 115 U/L 02/02/2025 8:38 AM [facility] Total Bilirubin, Plasma 2.1(H) 0.2 - 1.1 mg/dL 02/02/2025 8:38 AM [facility] eGFRcr 82.0 mL/min/1.7 3m*2 02/02/2025 8:38 AM [facility] Comment:Reported eGFRcr in m L/min/1.73m2 is based the CKD-EPI 2020 equation that does not use a race coefficient. Blood Venous blood specimen / Unknown Venipuncture / Unknown 02/02/2025 7:45 AM EST 02/02/2025 8:12 AM EST us Chacha Heard APRN LAB BLOOD ORDERABLES Final Res ult [facility] [address] [place] [address] * (ABNORMAL) CBC and differential (01/20/2025 6:39 AM EST) Only the most recent of10 resultswithin the time period is included. WBC Count 7.02 3.70 - 10.30 10*3/uL LAB HEMATOLOGY METHOD 01/20/2025 7:06 AM EST [facility] RBC Count 3.09(L) 4.60 - 6.10 10*6/uL LAB HEMATOLOGY METHOD 01/20/2025 7:06 AM EST [facility] HGB 10.2(L) 13.7 - 17.5 g/dL LAB HEMATOLOGY METHOD 01/20/2025 7:06 AM EST [facility] HCT 31.9(L) 40.0 - 51.0 % LAB HEMATOLOGY METHOD 01/20/2025 7:06 AM EST [facility] Platelet Count 222 155 - 369 10*3/uL LAB HEMATOLOGY METHOD 01/20/2025 7:06 AM EST [facility] MCV 103(H) 79 - 98 fL LAB HEMATOLOGY METHOD 01/20/2025 7:06 AM EST [facility] MCH 33.0(H) 26.0 - 32.0 pg LAB HEMATOLOGY METHOD 01/20/2025 7:06 AM EST [facility] MCHC 32.0 30.7 - 35.5 g/dL LAB HEMATOLOGY METHOD 01/20/2025 7:06 AM EST [facility] RDW 21.2(H) 11.5 - 14.5 % LAB HEMATOLOGY METHOD 01/20/2025 7:06 AM EST [facility] MPV 9.6 8.8 - 12.5 fL LAB HEMATOLOGY METHOD 01/20/2025 7:06 AM EST [facility] nRBC 0.0 <=0.0 per 100 WBCs LAB HEMATOLOGY METHOD 01/20/2025 7:06 AM EST [facility] Differential Type Automated LAB HEMATOLOGY METHOD 01/20/2025 7:06 AM EST [facility] Neutrophils % 79 % LAB HEMATOLOGY METHOD 01/20/2025 7:06 AM EST [facility] Lymphocytes % 13 % LAB HEMATOLOGY METHOD 01/20/2025 7:06 AM EST [facility] Monocytes % 6 % LAB HEMATOLOGY METHOD 01/20/2025 7:06 AM EST [facility] Eosinophils % 2 % LAB HEMATOLOGY METHOD 01/20/2025 7:06 AM EST [facility] Basophils % 0 % LAB HEMATOLOGY METHOD 01/20/2025 7:06 AM EST [facility] Immature Granulocytes % 0 % LAB HEMATOLOGY METHOD 01/20/2025 7:06 AM EST [facility] Neutrophils Absolute 5.55 1.60 - 6.10 10*3/uL LAB HEMATOLOGY METHOD 01/20/2025 7:06 AM EST [facility] Lymphocytes Absolute 0.93(L) 1.20 - 3.90 10*3/uL LAB HEMATOLOGY METHOD 01/20/2025 7:06 AM EST [facility] Monocytes Absolute 0.40 0.30 - 0.90 10*3/uL LAB HEMATOLOGY METHOD 01/20/2025 7:06 AM EST [facility] Eosinophils Absolute 0.11 0.00 - 0.50 10*3/uL LAB HEMATOLOGY METHOD 01/20/2025 7:06 AM [facility] Basophils Absolute 0.01 0.00 - 0.10 10*3/uL LAB HEMATOLOGY METHOD 01/20/2025 7:06 AM EST [facility] Immature Granulocytes Absolute 0.02 0.00 - 0.06 10*3/uL LAB HEMATOLOGY METHOD 01/20/2025 7:06 AM EST [facility] Blood Venous blood specimen / Unknown Venipuncture / Unknown 01/20/2025 6:39 AM EST 01/20/2025 6:57 AM EST [facility] - 01/20/2025 7:06 AM EST Therapeutic decision making should be based on absolute values, rather than percentages. us Satnam Beckford MD LAB BLOOD ORDERABLES Final Result [facility] [address] [place] [address] * (ABNORMAL) POCT glucose meter (01/16/2025 12:01 PM EST) Only the most recent of72 resultswithin the time period is included. POCT Glucose 158(H) 74 - 99 mg/dL 01/16/2025 12:04 PM EST [facility] Comment:Accuracy of a glucos e result [...] for testing. Comment 01/16/2025 12:04 PM EST [facility] Timekeeping Supervisor ID Shonda Kimbrough 12:04 PM EST [facility] Device ID [id number] 01/16/2025 12:04 PM EST [facility] Specimen Type POC Capillary 01/16/2025 12:04 PM EST [facility] Blood Capillary blood specimen / Unknown 01/16/2025 12:01 PM EST 01/16/2025 12:04 PM EST Satnam Beckford MD LAB POINT OF CARE T EST DOCKED DEVICE UNSOLICITED RESULTS Final Result Performing Organization Address [facility] Co de Phone Number [facility] [address] [place] [address] * (ABNORMAL) Prothrombin Time/INR (01/16/2025 4:47 AM [...] INR 2.5 to 3.5 Prevention of recurrent [place] INR 2.5 to 3.5 us Maciel Olson MD LAB BLOOD ORDERABLES Final Resul t Performing Organization Address City/[facility] [place] [address] * Phosphorus (01/16/2025 4:47 AM EST) Only [...] ORDERABLES Final Resul t Performing Organization Address [facility] [place] [address] * US Guided Needle Biopsy Liver (01/13/2025 [...] transplant with elevated LFTs and hyperbilirubinemia. TECHNIQUE: Home Care Scheduler: Ghislaine Borges APRN Secondary Timekeeping Supervisor: None. Medications: IV conscious sedation with continuous [...] liver transplant with elevated LFTs andhyperbilirubinemia. TECHNIQUE: Home Care Scheduler: Ghislaine Borges APRN Secondary Timekeeping Supervisor: None. Medications: IV conscious sedation with continuous [...] is included. Case Report Surgical Pathology Case: [id number] Authorizing Provider: Satnam Beckford MD Collected: 01/13/2025 3246 Ordering Location: [facility] Inpatient Received: 01/13/2025 1035 Pathologist: Danny Pichardo MD Specimen: Liver 5:27 PM [facility] Final Diagnosis A. LIVER, ALLOGRAFT, CORE NEEDLE BIOPSY: - ACUTE CHOLANGITIS WITH ASSOCIATED CHOLESTASIS. - ACUTE CELLULAR REJECTION WITH TREATMENT EFFECT. - SEE COMMENT AND MICROSCOPIC DESCRIPTION. 5:27 PM [facility] at 1727 EST Comment Preliminary results were communicated to Dr. Beckford, via e-mail by Dr. Pichardo on 01/14/2025. 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 5:27 PM [facility] Special and Immunohistochemical Stains Special Stain: A1-4 Michael Trichrome Stain: performed and interpreted. IHC: A1-5 CMV: negative staining. A1-6 CK7: performed and interpreted. A2-2 CMV: negative staining. A2-3 CK7: performed and interpreted. All controls show appropriate reactivity. All immunohistochemist ry, in situ hybridization, and histochemical tests were developed by and are performed at the [facility], [address] [place] [address]. All tests reported here, except those addressing [...] on decalcified specimens. 5 5:27 PM EST [facility] Gross Description A. LIVER Received in formalin labeled l iver , are 3 yellow-green soft tissue cores that range from 1.4-1.6 cm in length and up to 0.1 cm in diameter. Entirely submitted in cassettes A1 to A2. Cold Time: 0 Adilene B Pettey 5 5:27 PM EST [facility] Note: A resident was involved in the service. I attest I examined the relevant preparations for the specimens and confirmed the diagnosis or interpretation. 5 5:27 PM EST [facility] Tissue Liver structure / Unknown Non-blood Collection / Unknown 01/13/2025 4:16 PM EST 01/13/2025 4:59 PM EST Comment:TAVERA path please us Satnam Beckford MD LAB PATHOLOGY ORDERAB[place] [address] * Herpes Simplex Virus by PCR (Serum) (01/13/2025 10:59 AM EST) Herpes Simplex Virus 1 (HSV-1) PCR Result Not Detected Not Detected 01/14/2025 2:21 PM EST [facility] Herpes Simplex Virus 2 (HSV-2) PCR Result Not Detected Not Detected 01/14/2025 2:21 PM EST [facility] Serum Venous blood specimen / Unknown 01/13/2025 10:59 AM EST 01/13/2025 1:47 PM EST Narrative [facility] - 01/14/2025 2:21 PM EST This PCR assay was developed and its performance characteristics determined by [facility] as appropriate for clinical purposes. This assay has not been cleared or approved by the FDA, but is performed in a CLIA regulated laboratory that is qualified to perform high-complexity testing. Satnam Beckford MD LAB MICROBIOLOGY - GENERAL ORDERABLES Final Result [facility] [address] [place] [address] * Shailesh Suárez Virus (EBV) Quantitative PCR (01/13/2025 10:59 AM EST) Shailesh Suárez Virus, Blood, Quant DNA Interpretation Not Detected Not Detected 01/14/2025 8:41 AM EST [facility] Blood Venous blood specimen / Unknown Venipuncture / Unknown 01/13/2025 10:59 AM EST 01/13/2025 11:13 AM EST Narrative [facility] - 01/14/2025 8:41 AM EST EBV [...] developed and it's performance characteristics determined by [facility] as appropriate for clinical purposes. [...] developed and it's performance characteristics determined by [facility] as appropriate for clinical purposes. This assay has not been cleared or approved by the FDA, but is performed in a CLIA regulated laboratory that is qualified to perform high-complexity testing. Satnam Beckford MD LAB BLOOD ORDERABLES Final Result Performing Organization Address [facility] [place] [address] * Cytomegalovirus (CMV) Quantitative PCR (01/13/2025 10:59 AM EST) Pathologist [facility] Cytomegalovirus (CMV) Quantitative Interpretation Not Detected Not Detected 01/14/2025 2:52 PM EST [facility] Blood Venous blood specimen / Unknown Venipuncture / Unknown 01/13/2025 10:59 AM EST 01/13/2025 11:13 AM EST Narrative [facility] - 01/14/2025 2:52 PM EST The [employer] M2000 CMV test is a Real Time [...] BLOOD ORDERABLES Final Result Performing Organization Address [facility] [place] [address] * (ABNORMAL) Bilirubin, direct (01/13/2025 4:43 AM EST) Direct Bilirubin, Plasma 8.3(H) <=0.3 mg/dL 01/13/2025 11:13 AM EST [facility] Blood Venous blood specimen / Unknown Venipuncture / Unknown 01/13/2025 4:43 AM EST 01/13/2025 4:51 AM EST Félix Simmons SENIOR CONSTRUCTION MANAGER, DNP LAB BLOOD ORDERA BLES Final Result [facility] [address] [place] [address] * FL ERC (2025 12:59 PM EST) Narrative IMAGING - 2025 2:38 PM EST Images were obtained for surgical purposes. See Parmjit Garcia's surgical note in the patient's chart for the findings. Parmjit Garcia MD IMG FLUOROSCOPY PROCEDURES Fin al Result Performing Organization Address City/[facility]/ZIP Co de Phone Number IMAGING * ERCP [...] Ruben R, MD Proceduralist Yi Reese Endo Housing Quality Standard Inspector Rell Vivas MD Proceduralist Preprocedure A history [...] and ampullary region appeared normal. ERCP: The chemical plant operator supervisor film showed manju. The duodenoscope was passed under direct vision through the mouth and advanced to the second portion of the duodenum. The major papilla was visualized. The major papilla was holy cross. Endo-biliary stent placed during transplant no longer [...] GI PROCEDURE ORDERABLES Final Re sult * WI AN ELECTIVE ENDOTRACHEAL AIRWAY, PB ANESTHESIA PLACEHOLDER (2025 11:59 AM EST) Narrative Bethany Ayers CRNA - 2025 11:59 AM EST Bethany Ayers CRNA 2025 12:20 PM Airway Date/Time: 2025 11:59 AM Reason: elective Airway not difficult General Information and Staff Patient location during procedure: OR FRONT DESK SUPERVISOR: Bethany Ayers CRNA Performed: FRONT DESK SUPERVISOR Patient Condition Indications for airway management: anesthesia [...] Additional Comments Atraumatic. No change to dentition. Da De MD ANESTHESIA ORDERABLES Edited Re [...] using the following sequences: coronal single shot [id number] fast spin echo, axial T2 weighted sequences [...] 01/11/2025 10:48 AM Final report signed by Roejlio Hahn MD on 01/11/2025 11:43 AM Jude [...] 01/10/2025 1:54 PM us Jude Peters MD IM US PROCEDURES Final Result * Lavender Top [...] ORDERABLES Final Resul t Performing Organization Address City/[facility]/ZIP Co de Phone Number [facility] [address] [place] [address] * Light Green Top (01/09/2025 5:13 AM EST) Only the most recent of2 resultswithin the time period is included. Extra Hold for add-ons 01/09/2025 8:01 AM EST [facility] Comment:Auto resulted. Blood Venous blood specimen / Unknown 01/09/2025 5:13 AM EST 01/09/2025 5:13 AM EST us Maciel Olson MD LAB BLOOD ORDERABLES Final Resul t Performing Organization Address [facility] de Phone Number [facility] [address] [place] [address] * XR Chest 1 View (01/08/2025 12:15 [...] Rojelio Hahn MD on 01/06/2025 9:33 AM us Kamila Bashir APRN IMG XR PROCEDURES Final Resu lt * Multi Drug Resistance Test (01/05/2025 6:40 PM EST) Only the most recent of2 resultswithin the time period is included. Culture No growth at day 1 01/06/2025 8:52 PM EST [facility] Swab (Nares and Lauren Rectal) 01/05/2025 6:40 PM EST 01/05/2025 6:43 PM EST Narrative [facility] - 01/06/2025 8:52 PM EST This [...] MICROBIOLOGY - GEN ERAL ORDERABLES Final Result Performing Organization Address City/State/[facility] Co de Phone Number [facility] [address] [place] [address] * [place] CRITICAL CARE, E/M 30-74 MINUTES (01/05/2025 11:03 [...] of16 resultswithin the time period is included. Kelvin Zapata APRN BLOOD TRANSFUSION ORDERAB LES Final Result * Prepare Leukocyte Reduced RBC: 1 Units (01/05/2025 4:19 AM EST) Only the most recent of8 resultswithin the time period is included. Product Code L1865X56 BLOO D BANK Dispense Status Transfused BLOOD BANK Blood Expiration Date [id number] BLOOD BANK Unit Number [id number] B LOOD BANK Product Blood Type 0600 BLOOD BANK Blood Type A- BLOOD BANK Crossmatch Compatible BLOOD BANK Other Kelvin Zapata APRN BLOOD BANK PRODUCT ORDERA BLES Final Result Performing Organization Address City/State/[facility] Co de Phone Number BLOOD BANK [address] [place] [address], * Transfuse fresh frozen plasma (01/04/2025 2:20 PM EST) Only the most recent of11 resultswithin the time period is included. Result [facility] Camilla Soto APRN, DNP BLOOD TRANSFUSION ORDERAB LES Final Result * Transfuse platelets (01/04/2025 12:11 PM EST) Only the most recent of2 resultswithin the time period is included. us Camilla Soto APRN, DNP BLOOD TRANSFUSION [...] 11:46 AM EST 01/04/2025 11:52 AM EST us Satnam Beckford MD LAB BLOOD ORDERABLES Final Result [facility] [address] [place] [address] * US Abdomen Focused Region Liver (01/04/2025 [...] on 01/04/2025 11:42 AM Satnam Beckford MD [facility] [place] PROCEDURES Final Res ult * Prepare Leukocyte Reduced Platelets: 1 Units (01/04/2025 10:15 AM EST) Only the most recent of2 resultswithin the time period is included. Product Code I3216P37 CH BLOO D BANK Dispense Status Transfused BLOOD BANK Blood Expiration Date [id number] BLOOD BANK Unit Number [id number] B LOOD BANK Product Blood Type 0600 BLOOD BANK Blood Type A- BLOOD BANK Blood Venous blood specimen / Unknown Camilla Soto SENIOR CONSTRUCTION MANAGER, DNP BLOOD BANK PRODUCT ORDERA BLES Final Result BLO[facility] BANK [address] [place] [address], [place] * [place] CRITICAL CARE, E/M 30-74 MINUTES (01/04/2025 9:16 [...] the time period is included. Product Code [id number] BLOO D BANK Dispense Status Transfused BLOOD BANK Blood Expiration Date [id number] BLOOD BANK Unit Number [id number] B LOOD BANK Product Blood Type 8400 BLOOD BANK Blood Type AB+ BLOOD BANK Blood Venous blood specimen / Unknown Camilla Soto APRN, DNP BLOOD BANK PRODUCT ORDERA BLES Final Result BLOOD BANK [address] [place] [address], * (ABNORMAL) TEG Global Hemostasis with Lysis (01/04/2025 8:17 AM EST) Only the most recent of5 resultswithin the time period is included. R, Lysis 7.2 4.6 - 9.1 min 01/04/2025 9:39 AM EST [facility] MA, Rapid, Lysis <40.0(L) 52.0 - 70.0 mm 01/04/2025 9:39 AM EST [facility] MA, Fibrinogen, Lysis 8.7(L) 15.0 - 32.0 mm 01/04/2025 9:39 AM EST [facility] LY30 0.0 0.0 - 2.6 % 01/04/2025 9:39 AM EST [facility] Blood Arterial blood specimen / Unknown Arterial Line / Unknown 01/04/2025 8:17 AM EST 01/04/2025 8:29 AM EST Rivka Gonzalez APRN LAB BLOOD ORDERABLES Fin al Result Performing Organization Address City/[facility]/ZIP Co de Phone Number [facility] [address] [place] [address] * Tylor auris Surveillance by PCR (01/03/2025 [...] developed and its performance characteristics determined by [facility] as appropriate for clinical purposes. This assay has not been cleared or approved by the FDA, but is performed in a CLIA regulated laboratory that is qualified to perform high-complexity testing. Satnam Beckford MD LAB MICROBIOLOGY - GENERAL ORDERABLES Final Result [facility] [address] [place] [address] * (ABNORMAL) Blood gas panel with oximetry, mixed venous (01/03/2025 3:47 PM EST) pH, Mixed Venous 7.31(L) 7.32 - 7.43 LAB HEMATOLOGY METHOD 01/03/2025 3:56 PM EST [facility] pCO2, Mixed Venous 42 40 - 55 mmHg LAB HEMATOLOGY METHOD 01/03/2025 3:56 PM [facility] pO2, Mixed Venous 53(H) 25 - 40 mmHg LAB HEMATOLOGY METHOD 01/03/2025 3:56 PM [facility] SO2, Measured, Mixed Venous 87(H) 65 - 80 % LAB HEMATOLOGY METHOD 01/03/2025 3:56 PM [facility] Bicarbonate, Calculated, Mixed Venous 21(L) 22 - 26 mmol/L LAB HEMATOLOGY METHOD 01/03/2025 3:56 PM [facility] Base Excess, Mixed Venous -5.1(L) -2.0 - 3.0 mmol/L LAB HEMATOLOGY METHOD 01/03/2025 3:56 PM [facility] Hematocrit, Whole Blood 26.4(L) 40.0 - 51.0 % LAB HEMATOLOGY METHOD 01/03/2025 3:56 PM [facility] Sodium, Whole Blood 140 136 - 145 mmol/L LAB HEMATOLOGY METHOD 01/03/2025 3:56 PM [facility] Potassium, Whole Blood 4.5 3.6 - 4.9 mmol/L LAB HEMATOLOGY METHOD 01/03/2025 3:56 PM [facility] Chloride, Whole Blood 115(H) 97 - 107 mmol/L LAB HEMATOLOGY METHOD 01/03/2025 3:56 PM [facility] Ionized Calcium, Whole Blood 5.2(H) 4.6 - 5.1 mg/dL LAB HEMATOLOGY METHOD 01/03/2025 3:56 PM [facility] Glucose, Whole Blood 145(H) 74 - 99 mg/dL LAB HEMATOLOGY METHOD 01/03/2025 3:56 PM [facility] Oxyhemoglobin, Mixed Venous, Whole Blood 82.3(H) 40.0 - 70.0 % LAB HEMATOLOGY METHOD 01/03/2025 3:56 PM [facility] Hemoglobin Reduced, Mixed Venous, Whole Blood 12.6 % LAB HEMATOLOGY METHOD 01/03/2025 3:56 PM [facility] Total Hemoglobin, Mixed Venous, Whole Blood 8.6(L) 13.7 - 17.5 g/dL LAB HEMATOLOGY METHOD 01/03/2025 3:56 PM [facility] Blood Mixed venous blood specimen / Unknown Venipuncture / Unknown 01/03/2025 3:47 PM EST 01/03/2025 3:54 PM EST us Satnam Beckford MD LAB BLOOD ORDERABLES Final Result [facility] [address] [place] [address] * [place] CRITICAL CARE, E/M 30-74 MINUTES (01/03/2025 3:18 [...] [facility] [address] [place] [address] * (ABNORMAL) APTT (01/03/2025 2:54 PM EST) [...] ORDERABLES Final Res ult Performing Organization Address City/[facility]/ZIP Co de Phone Number [facility] [address] [place] [address] * (ABNORMAL) Fibrinogen (01/03/2025 2:54 PM EST) [...] ORDERABLES Final Res ult Performing Organization Address [facility] Co de Phone Number [facility] [address] [place] [address] * (ABNORMAL) POCT arterial blood gas gem (01/03/2025 2:13 PM EST) Only the most recent of11 resultswithin the time period is included. pH, Arterial 7.34(L) 7.35 - 7.45 01/03/2025 2:14 PM EST [facility] pCO2, Arterial 35 32 - 45 mm Hg 01/03/2025 2:14 PM EST [facility] pO2, Arterial 159(H) 83 - 108 mm Hg 01/03/2025 2:14 PM EST [facility] SO2, Arterial 99(H) 94 - 98 % 01/03/2025 2:14 PM EST [facility] Base Excess, Arterial -6.3(L) -2 - 3 mmol/L 01/03/2025 2:14 PM EST [facility] HCO3, Arterial 18.9(L) 22 - 26 mmol/L 01/03/2025 2:14 PM EST [facility] Total Hemoglobin, Arterial, Whole Blood 8.1(L) 13.7 - 17.5 g/dL 01/03/2025 2:14 PM EST [facility] Hematocrit, Arterial 24.0(L) 40 - 51.0 % 01/03/2025 2:14 PM EST [facility] Sodium, Arterial 139 136 - 145 mmol/L 01/03/2025 2:14 PM EST [facility] Potassium, Arterial 4.8 3.6 - 4.9 mmol/L 01/03/2025 2:14 PM EST [facility] Chloride, Whole Blood 112(H) 97 - 107 mmol/L 01/03/2025 2:14 PM EST [facility] Glucose, Arterial 165(H) 74 - 99 mg/dL 01/03/2025 2:14 PM EST [facility] Ionized Calcium, Arterial 5.4(H) 4.6 - 5.1 mg/dL 01/03/2025 2:14 PM EST [facility] Lactate, Arterial 1.5 0.5 - 1.6 mmol/L 01/03/2025 2:14 PM EST [facility] [facility] Body Temperature 37.0 Celsius 01/03/2025 2:14 PM EST [facility] pH, Temp Corrected, Arterial 7.34(L) 7.35 - 7.45 01/03/2025 2:14 PM EST [facility] pCO2, Temp Corrected, Arterial 35 32 - 45 mm Hg 01/03/2025 2:14 PM EST [facility] pO2, Temp Corrected, Arterial 159(H) 83 - 108 mm Hg 01/03/2025 2:14 PM EST [facility] Timekeeping Supervisor ID Ronnie Jackson 01/03/2025 2:14 PM EST [facility] Blood Whole blood specimen / Unknown 01/03/2025 2:13 PM EST 01/03/2025 2:14 PM EST Satnam Beckford MD LAB POINT OF CARE T EST DOCKED DEVICE UNSOLICITED RESULTS Final Result [facility] [address] [place] [id number] * Exception to Standard Practice, Pathologist Interpretation [...] 4 AM EST 01/05/2025 9:20 AM EST us Maciel Olson MD LAB BLOOD BANK TEST ORDERABLES F inal Result Performing Organization Address City/[facility]/ZIP Co de Phone Number BLOOD BANK [address] [place] [address] * (ABNORMAL) Platelet Count, Blood (01/03/2025 11:46 AM EST) Only the most recent of2 resultswithin the time period is included. Platelet Count 52(L) 155 - 369 10*3/uL LAB HEMATOLOGY METHOD 01/03/2025 11:59 AM EST [facility] Blood Arterial blood specimen / Unknown 01/03/2025 11:46 AM EST 01/03/2025 11:51 AM EST Comment:Pre-op diagnosis: Decompensation of cirrhosis of liver (CMS/HCC) [K72.90, K74.60] us Josafat Rivera MD LAB BLOOD ORDERABLES Final Res ult Performing Organization Address City/[facility]/ZIP Co de Phone Number [facility] [address] [place] [address] * PB ANESTHESIA NON-TIMED PROCEDURE PLACEHOLDER (01/03/2025 [...] - 175 Seconds 01/03/2025 8:42 AM EST [facility] Clot Stability To Lysis 98 92 - 100 % 01/03/2025 8:42 AM [facility] Comment:The Clot Stability t o Lysis [...] - 35.4 hectoPascals 01/03/2025 8:42 AM EST [facility] Platelet Contribution to Clot Stiffness 8.0(L) 12.8 - 32.3 hectoPascals 01/03/2025 8:42 AM [facility] Fribrinogen Contribution to Clot Stiffness 1.1 0.9 - 4.2 hectoPascals 01/03/2025 8:42 AM EST [facility] Timekeeping Supervisor ID [id number] 01/03/2025 8:42 AM [facility] Device ID [id number] 01/03/2025 8:42 AM [facility] Blood Venous blood specimen / Unknown 01/03/2025 8:01 AM EST 01/03/2025 8:42 AM EST Narrative [facility] - 01/03/2025 8:42 AM EST ProfileName= us Satnam Beckford MD LAB POINT OF CARE T EST DOCKED DEVICE UNSOLICITED RESULTS Final Result [facility] [address] [place] [id number] * Peripheral IV (01/03/2025 7:30 AM EST) Josafat Ardon MD - 01/03/2025 7:30 AM EST Josafat Rivera MD 01/03/2025 8:36 AM Peripheral IV Date/Time: 01/03/2025 7:30 AM Placement Needle size: 18 G Location: hand Site prep: alcohol Technique: anatomical landmarks Attempts: 1 us Josafat Rivera MD ANESTHESIA ORDERABLES Final Re sult * WI AN CENTRAL LINE TRIPLE LUMEN, PB ANESTHESIA [...] MD ANESTHESIA ORDERABLES Final Re sult * WI AN CENTRAL LINE DOUBLE LUMEN, PB ANESTHESIA NON-TIMED PROCEDURE PLACEHOLDER, ANESTHESIA ULTRASOUND GUIDED, WI INSERT/PLACE FLOW DIRECT CATH (01/03/2025 7:30 AM [...] MD ANESTHESIA ORDERABLES Final Re sult * WI AN CENTRAL LINE TRIPLE LUMEN, PB ANESTHESIA [...] MD ANESTHESIA ORDERABLES Final Re sult * WI AN ELECTIVE ENDOTRACHEAL AIRWAY, PB ANESTHESIA PLACEHOLDER [...] Detected Not Detected 01/02/2025 11:10 AM EST [facility] Swab Nasopharyngeal structure / Unknown Non-blood Collection [...] GENERAL ORDERABLES Final Result Performing Organization Address City/[facility]/ZIP Co de Phone Number [facility] [address] [place] [address] * Hepatitis B Surface Antibody, Quantitative (01/02/2025 9:40 AM EST) [facility] Hepatitis B Surface Antibody, Quantitative <8.00 NonReactiv [...] Result [facility] [address] [place] [address] * Hepatitis C Virus (HCV) Quantitative PCR (01/02/2025 9:40 AM EST) [facility] Hepatitis C Virus (HCV) Quantitative Interpretation Not Detected Not Detected. 01/05/2025 4:19 PM EST [facility] Blood Venous blood specimen / Unknown Venipuncture / Unknown 01/02/2025 9:40 AM EST 01/02/2025 10:01 AM EST Narrative [facility] - 01/05/2025 4:19 PM EST The [employer] M2000 HCV test is a Real Time [...] BLOOD ORDERABLES Final Result Performing Organization Address City/[facility]/ZIP Co de Phone Number [facility] [address] [place] [address] * HIV 1 & 2 Antibody/Antigen Screen (01/02/2025 9:40 AM EST) [facility] HIV 1 & 2 Antibody/Antigen Screen Non Reactive Non Reactive 01/02/2025 10:42 AM EST [facility] Comment:Screening for HIV 1 & 2 antibodies, and P24 antigen is NONREACTIVE. No confirmatory testing is required. Blood Venous blood specimen / Unknown Venipuncture / Unknown 01/02/2025 9:40 AM EST 01/02/2025 10:01 AM EST Satnam Beckford MD LAB BLOOD ORDERABLES Final Result [facility] [address] [place] [address] * Hepatitis C Antibody (01/02/2025 9:40 AM EST) Hepatitis C Antibody Negative Negative 01/02/2025 10:42 AM EST [facility] Blood Venous blood specimen / Unknown Venipuncture / Unknown 01/02/2025 9:40 AM EST 01/02/2025 10:01 AM EST Satnam Beckford MD LAB BLOOD ORDERABLES Final Result Performing Organization Address City/[facility]/ZIP Co de Phone Number [facility] [address] [place] [address] * Hepatitis B Core Total Antibody IgG,IgM [...] BLOOD ORDERABLES Final Result Performing Organization Address City/[facility] Co de Phone Number [facility] [address] [place] [address] * (ABNORMAL) Vitamin D 25 Hydroxy (01/02/2025 [...] 11:15 AM EST Testing performed on [employer], standardized against NIST SRM 2972. When testing [...] BLOOD ORDERABLES Final Result Performing Organization Address City/[facility] Co de Phone Number [facility] [address] [place] [address] * Hepatitis B Surface Antigen (01/02/2025 9:40 AM EST) Hepatitis B Surf Antigen Negative Negative 01/02/2025 5:37 PM EST [facility] Blood Venous blood specimen / Unknown Venipuncture / Unknown 01/02/2025 9:40 AM EST 01/02/2025 10:02 AM EST Satnam Beckford MD LAB BLOOD ORDERABLES Final Result Performing Organization Address [facility] Co de Phone Number [facility] [address] [place] [address] * Type and screen (01/02/2025 9:40 AM [...] ORDERAB LES Final Result Performing Organization Address City/[facility] Co de Phone Number BLOOD BANK [address] [place] [address], * Shine Only ABO/Rh Type (01/02/2025 9:31 AM EST) [facility] Bank Lab Only (Blood Bank Lab Only) 01/02/2025 9:31 AM EST 01/05/2025 7:46 AM EST us Luis Steel MD LAB BLOOD BANK TEST ORDERAB LES Final Result BLOOD BANK [address] [place] [address], * Pain Management, Quantitative Urine Drug Testing (12/30/2024 6:24 AM EST) Only the most recent of6 resultswithin the time period is included. Alpha [place] Alprazolam <20 <20 ng/mL 12/31 6:42 AM EST [facility] Alpha [place] Midazolam <20 <20 ng/mL 2024 6:42 AM EST [facility] Alpha [place] Triazolam <20 <20 ng/mL 2024 6:42 AM EST [facility] Alprazolam <10 <10 ng/mL 12/31/2024 6:42 AM EST [facility] Aminoclonazepam <20 <20 ng/mL 6:42 AM EST [facility] Amphetamine <50 <50 ng/mL 12/31/2024 6:42 AM EST [facility] Benzoylecgonine <50 <50 ng/mL 6:42 AM EST [facility] Buprenorphine <10 <10 ng/mL 12/31/2024 6:42 AM EST [facility] Buprenorphine Glucuronide <50 <50 ng/mL 12/31/2024 6:42 AM EST [facility] Butalbital <50 <50 ng/mL 12/31/2024 6:42 AM EST [facility] 9 Carboxy THC <10 <10 ng/mL 12/31/2024 6:42 AM EST [facility] 9 Carboxy THC Glucuronide <25 <25 ng/mL 12/31/2024 6:42 AM EST [facility] Clonazepam <10 <10 ng/mL 12/31/2024 6:42 AM EST [facility] Codeine <50 <50 ng/mL 12/31/2024 6:42 AM EST [facility] Codeine Glucuronide <50 <50 ng/mL 12/31 6:42 AM EST [facility] Cyclobenzaprine <50 <50 ng/mL 6:42 AM EST [facility] Desmethyl Tramadol <50 <50 ng/mL 2024 6:42 AM EST [facility] Diazepam <10 <10 ng/mL 12/31/2024 6:42 AM EST [facility] EDDP - Methadone Metabolite <50 <50 ng/mL 12/31/2024 6:42 AM EST [facility] Fentanyl <1 <1 ng/mL 12/31/2024 6:42 AM EST [facility] Hydrocodone <50 <50 ng/mL 12/31/2024 6:42 AM EST [facility] Hydromorphone <50 <50 ng/mL 12/31/2024 6:42 AM EST [facility] Hydromorphone Glucuronide <50 <50 ng/mL 12/31/2024 6:42 AM EST [facility] Lorazepam <20 <20 ng/mL 12/31/2024 6:42 AM EST [facility] Lorazepam Glucuronide <50 <50 ng/mL 12/31/2024 6:42 AM EST [facility] MDA <50 <50 ng/mL 12/31/2024 6:42 AM EST [facility] MDMA <50 <50 ng/mL 12/31/2024 6:42 AM EST [facility] Meperidine <50 <50 ng/mL 12/31/2024 6:42 AM EST [facility] Methadone <50 <50 ng/mL 12/31/2024 6:42 AM EST [facility] Methamphetamine <50 <50 ng/mL 6:42 AM EST [facility] Methylphenidate <50 <50 ng/mL 6:42 AM EST [facility] 6 Monoacetyl morphine <10 <10 ng/mL 12/31/2024 6:42 AM EST [facility] Morphine <50 <50 ng/mL 12/31/2024 6:42 AM EST [facility] Morphine Glucuronide <50 <50 ng/mL 12/13 6:42 AM EST [facility] Naloxone <50 <50 ng/mL 12/31/2024 6:42 AM [facility] Naloxone Glucuronide <50 <50 ng/mL 12/13 6:42 AM [facility] Norbuprenorphine <10 <10 ng/mL 01/01/20 6:42 AM [facility] Norbuprenorphine Glucuronide <50 <50 ng/mL 12/31/2024 6:42 AM [facility] Nordiazepam <20 <20 ng/mL 12/31/2024 6:42 AM [facility] Norfentanyl <2 <2 ng/mL 12/31/2024 6:42 AM [facility] Normeperidine <50 <50 ng/mL 12/31/2024 6:42 AM [facility] PCP Quant, Ur <50 <50 ng/mL 12/31/2024 6:42 AM [facility] Phenobarbital <50 <50 ng/mL 12/31/2024 6:42 AM [facility] Oxazepam <20 <20 ng/mL 12/31/2024 6:42 AM [facility] Oxazepam Glucuronide <50 <50 ng/mL 12/13 6:42 AM [facility] Oxycodone <50 <50 ng/mL 12/31/2024 6:42 AM [facility] Oxymorphone <50 <50 ng/mL 12/31/2024 6:42 AM [facility] Oxymorphone Glucuronide <50 <50 ng/mL 12/31/2024 6:42 AM [facility] Secobarbital <50 <50 ng/mL 12/31/2024 6:42 AM [facility] Tramadol <50 <50 ng/mL 12/31/2024 6:42 AM [facility] Temazepam <20 <20 ng/mL 12/31/2024 6:42 AM [facility] Temazepam Glucuronide <50 <50 ng/mL 12/31/2024 6:42 AM [facility] Urine Urine specimen obtained by clean catch procedure / Unknown Non-blood Collection / Unknown 12/30/2024 6:24 AM EST 12/30/2024 7:03 AM EST Narrative [facility] - 12/31/2024 6:42 AM EST This [...] laboratory. Test performed by LC-MS/MS at the [facility]. This test was developed and its performance characteristics determined by [facility]. It has not been cleared or approved by the FDA. The laboratory is regulated under CLIA as qualified to perform high-complexity testing. This test is used for clinical purposes. us Miquel Lopez MD LAB URINE ORDERABLES Final Res ult [facility] [address] [place] [address] * Phosphatidylethanol (PEth), Whole Blood, Quantitative (SO) (12/30/2024 6:24 AM EST) Only the most recent of3 resultswithin the time period is included. PEth 16:0/18:2 (PLPEth) <10 ng/mL 01/01/2025 9:08 AM EST [facility] PEth 16:0/18:1 (POPEth) <10 ng/mL 01/01/2025 9:08 AM EST [facility] EER Peth See Note 01/01/2025 9:08 AM EST [facility] PEth Interpretation See Comment 01/01/2025 9:08 AM EST [facility] Blood Venous blood specimen / Unknown Venipuncture / Unknown 12/30/2024 6:24 AM EST 12/30/2024 6:57 AM EST Narrative [facility] - 01/01/2025 9:08 AM EST PEth 16:0/18:1 (POPEth) Less than 10 ng/mL............Not detected Less than 20 ng/mL............Abstinence or light alcohol consumption 20 - 200 ng/mL................Moderate alcohol consumption Greater than 200 ng/mL........Heavy alcohol consumption or chronic alcohol use (Reference: Alexi Segovia and Jaja Marion 2018 J. Forensic Sci) Reference ranges are not well established. Authorized individuals can access the [facility] Enhanced Report with an [facility] Connect account using the following link. Your local lab can assist you in obtaining the patient report if you don't have a Connect account. [email or web address] Phosphatidylethanol (PEth) is a group of phospholipids [...] developed and its performance characteristics determined by [facility]. It has not been cleared or approved by the U.S. Food and Drug Administration. This test was performed in a CLIA-certified laboratory and is intended for clinical purposes. Performed By: [facility] [address] [place] [id number] Teletypesetter Operator: Linden Matta MD, PhD CLIA Number: [id number] Miquel Lopez MD LAB REF LAB BLOOD AND FLUID OR D Final Result [facility] [address] [place] [address] * Nicotine Cotinine Metabolite (12/30/2024 6:24 AM EST) Only the most recent of7 resultswithin the time period is included. NICOTINE <5 <5 ng/mL 12/31/2024 10:15 AM EST [facility] Cotinine <5 <5 ng/mL 12/31/2024 10:15 AM EST [facility] Blood Venous blood specimen / Unknown Venipuncture / Unknown 12/30/2024 6:24 AM EST 12/30/2024 6:59 AM EST Narrative [facility] - 12/31/2024 10:15 AM EST Testing performed by LC-MS/MS at the [facility]. This test was developed and its performance characteristics determined by [facility]. This assay has not been cleared by the FDA. The laboratory is regulated under CLIA as qualified to perform high-complexity testing. This test is used for clinical purposes. us iMquel Lopez MD LAB BLOOD ORDERABLES Final Res ult [facility] [address] [place] [address] * Alcohol Urine (12/30/2024 6:24 AM EST) Only the most recent of7 resultswithin the time period is included. Alcohol Urine Negative Negative 12/30/2024 9:52 AM EST [facility] Urine Urine specimen obtained by clean catch procedure / Unknown Non-blood Collection / Unknown 12/30/2024 6:24 AM EST 12/30/2024 7:03 AM EST Narrative [facility] - 12/30/2024 9:52 AM EST The correlation between urine and serum ethanol concentration is highly variable. Test performed by Gas Chromatography at the [facility]. This test was developed and its performance characteristics determined by [facility]. It has not been cleared or approved by the FDA.The laboratory is regulated under CLIA as qualified to perform high-complexity testing. This test is used for clinical purposes only. us Miquel Lopez MD LAB URINE ORDERABLES Final Res ult [facility] [address] [place] [address] * (ABNORMAL) Comprehensive Urine Drug Screening, Qualitative Assay, >= 27 Drug Classes (56:24 AM EST) Only the most recent of7 resultswithin the time period is included. Acetaminophen Negative Negative 12/31/2024 6:45 AM EST [facility] Alprazolam Negative Negative 12/31/2024 6:45 AM EST [facility] Amantadine Negative Negative 12/31/2024 6:45 AM EST [facility] Amitriptyline Negative Negative 12/31/2024 6:45 AM EST [facility] Amphetamine Negative Negative 12/31/2024 6:45 AM EST [facility] Atenolol Negative Negative 12/31/2024 6:45 AM EST [facility] Benzoylecgonine Negative Negative 6:45 AM EST [facility] Bisoprolol Negative Negative 12/31/2024 6:45 AM EST [facility] Bupropion Positive(A) Negative 12/31/2024 6:45 AM EST [facility] Butalbital Negative Negative 12/31/2024 6:45 AM EST [facility] Carbamazepine Negative Negative 12/31/2024 6:45 AM EST [facility] Carisoprodol Negative Negative 12/31/2024 6:45 AM EST [facility] Chlorpheniramine Negative Negative 01/01/20 6:45 AM EST [facility] Citalopram Negative Negative 12/31/2024 6:45 AM EST [facility] Clindamycin Negative Negative 12/31/2024 6:45 AM EST [facility] Clonidine Negative Negative 12/31/2024 6:45 AM EST [facility] Clopidogrel / Ticlopidine Negative Negative 12/31/2024 6:45 AM EST [facility] Cocaethylene Negative Negative 12/31/2024 6:45 AM EST [facility] Cocaine Negative Negative 12/31/2024 6:45 AM EST [facility] Codeine Negative Negative 12/31/2024 6:45 AM EST [facility] Cyclobenzaprine Negative Negative 6:45 AM EST [facility] Desvenlafaxine Negative Negative 12/31/2024 6:45 AM EST [facility] Dextromethorphan Negative Negative 01/01/20 6:45 AM EST [facility] Diazepam Negative Negative 12/31/2024 6:45 AM EST [facility] Diltiazem Negative Negative 12/31/2024 6:45 AM EST [facility] Diphenhydramine Negative Negative 6:45 AM EST [facility] Doxepine Negative Negative 12/31/2024 6:45 AM EST [facility] Doxylamine Negative Negative 12/31/2024 6:45 AM EST [facility] EDDP-Methadone metabolite Negative Negative 12/31/2024 6:45 AM EST [facility] Fentanyl Negative Negative 12/31/2024 6:45 AM EST [facility] Fluconazole Negative Negative 12/31/2024 6:45 AM EST [facility] Fluoxetine Negative Negative 12/31/2024 6:45 AM EST [facility] Guaifenesin Negative Negative 12/31/2024 6:45 AM EST [facility] Haloperidol Negative Negative 12/31/2024 6:45 AM EST [facility] Heroin/6-EZIO Negative Negative 12/31/2024 6:45 AM EST [facility] Hydrocodone Negative Negative 12/31/2024 6:45 AM EST [facility] Hydroxyzine / Cetirizine metabolite Negative Negative 12/31/2024 6:45 AM EST [facility] Ibuprofen Negative Negative 12/31/2024 6:45 AM EST [facility] Imipramine Negative Negative 12/31/2024 6:45 AM EST [facility] Ketamine Negative Negative 12/31/2024 6:45 AM EST [facility] Labetolol Negative Negative 12/31/2024 6:45 AM EST [facility] Lamotrigine Negative Negative 12/31/2024 6:45 AM EST [facility] Levetiracetam Negative Negative 12/31/2024 6:45 AM EST [facility] Lidocaine Negative Negative 12/31/2024 6:45 AM EST [facility] MDA Negative Negative 12/31/2024 6:45 AM EST [facility] MDMA Negative Negative 12/31/2024 6:45 AM EST [facility] Memantine Negative Negative 12/31/2024 6:45 AM EST [facility] Meperidine Negative Negative 12/31/2024 6:45 AM EST [facility] Meprobamate Negative Negative 12/31/2024 6:45 AM EST [facility] Metaxalone Negative Negative 12/31/2024 6:45 AM EST [facility] Methamphetamine Negative Negative 6:45 AM EST [facility] Methocarbamol Negative Negative 12/31/2024 6:45 AM EST [facility] Methylecgonine Negative Negative 12/31/2024 6:45 AM EST [facility] Metoclopramide Negative Negative 12/31/2024 6:45 AM EST [facility] Metoprolol Negative Negative 12/31/2024 6:45 AM EST [facility] Metronidazole Negative Negative 12/31/2024 6:45 AM EST [facility] Midazolam Negative Negative 12/31/2024 6:45 AM EST [facility] Midazolam Metabolite Negative Negative 12/31/2024 6:45 AM EST [facility] Mirtazapine Negative Negative 12/31/2024 6:45 AM EST [facility] Misc Test Result Positive(A) Negative 025 6:45 AM EST [facility] Comment:Citalopram/ Escitalo pram Detected Naproxen Negative Negative 12/31/2024 6:45 AM EST [facility] Nefazodone Negative Negative 12/31/2024 6:45 AM EST [facility] Norfentanyl Negative Negative 12/31/2024 6:45 AM EST [facility] Nortriptyline Negative Negative 12/31/2024 6:45 AM EST [facility] Ordanstron Negative Negative 12/31/2024 6:45 AM EST [facility] Oxcarbazepine Negative Negative 12/31/2024 6:45 AM EST [facility] Oxycodone Negative Negative 12/31/2024 6:45 AM EST [facility] Paroxethine Negative Negative 12/31/2024 6:45 AM EST [facility] Phenobarbital Negative Negative 12/31/2024 6:45 AM EST [facility] Phentermine Negative Negative 12/31/2024 6:45 AM EST [facility] Phenytoin Negative Negative 12/31/2024 6:45 AM EST [facility] Primidone Negative Negative 12/31/2024 6:45 AM EST [facility] Promethazine Negative Negative 12/31/2024 6:45 AM EST [facility] Propofol Negative Negative 12/31/2024 6:45 AM EST [facility] Propranolol Negative Negative 12/31/2024 6:45 AM EST [facility] Quetiapine Negative Negative 12/31/2024 6:45 AM EST [facility] Quinine Negative Negative 12/31/2024 6:45 AM EST [facility] Rantidine Negative Negative 12/31/2024 6:45 AM EST [facility] Sertraline Negative Negative 12/31/2024 6:45 AM EST [facility] Spironolactone Positive(A) Negative 6:45 AM EST [facility] Tizanidine Negative Negative 12/31/2024 6:45 AM EST [facility] Topiramate Negative Negative 12/31/2024 6:45 AM EST [facility] Tramadol Negative Negative 12/31/2024 6:45 AM EST [facility] Trazadone/ Trazadone metabolite Negative Negative 12/31/2024 6:45 AM EST [facility] Trimethoprim Negative Negative 12/31/2024 6:45 AM EST [facility] Valproic Acid Negative Negative 12/31/2024 6:45 AM EST [facility] Venlafaxine Negative Negative 12/31/2024 6:45 AM EST [facility] Verapamil Negative Negative 12/31/2024 6:45 AM EST [facility] Zolpidem Negative Negative 12/31/2024 6:45 AM EST [facility] Xylazine Negative Negative 12/31/2024 6:45 AM EST [facility] Urine Urine specimen obtained by clean catch procedure / Unknown Non-blood Collection / Unknown 12/30/2024 6:24 AM EST 12/30/2024 7:03 AM EST us Miquel Lopez MD LAB URINE ORDERABLES Final Res ult Performing Organization Address City/[facility]/ZIP Co de Phone Number [facility] [address] [place] [address] * Light Blue Top (12/19/2024 11:50 AM EST) Extra Hold for add-ons 12/19/2024 2:02 PM EST [facility] Comment:Auto resulted. Blood Venous blood specimen / Unknown 12/19/2024 11:50 AM EST 12/19/2024 11:56 AM EST us Leroy Aponte MD LAB BLOOD ORDERABLES Final Resul t Performing Organization Address City/[facility] Co de Phone Number [facility] [address] [place] [address] * Folate (12/19/2024 11:50 AM EST) Folate, Serum 18.3 >4.6 ng/mL 12/19/2024 12:58 PM EST [facility] Blood Venous blood specimen / Unknown Venipuncture / Unknown 12/19/2024 11:50 AM EST 12/19/2024 12:13 PM EST us Leroy Aponte MD LAB BLOOD ORDERABLES Final Resul t Performing Organization Address City/[facility] Co de Phone Number [facility] [address] [place] [address] * Ferritin (12/19/2024 11:50 AM EST) Ferritin, Serum 42 20 - 400 ng/mL 12/19/2024 12:58 PM EST [facility] Blood Venous blood specimen / Unknown Venipuncture / Unknown 12/19/2024 11:50 AM EST 12/19/2024 12:13 PM EST Result Carly Aponte MD LAB BLOOD ORDERABLES Final Resul t Performing Organization Address City/[facility]/ZIP Co de Phone Number [facility] [address] [place] [address] * (ABNORMAL) Vitamin B12 (12/19/2024 11:50 AM EST) Vitamin B12, Serum 1,916(H) 210 - 1,033 pg/mL 12/19/2024 12:58 PM EST [facility] Blood Venous blood specimen / Unknown Venipuncture / Unknown 12/19/2024 11:50 AM EST 12/19/2024 12:13 PM EST us Leroy Aponte MD LAB BLOOD ORDERABLES Final Resul t Performing Organization Address [facility] de Phone Number [facility] [address] [place] [address] * (ABNORMAL) Iron & Total Iron Binding Capacity, Plasma (Includes Transferrin) (12/19/2024 8:54 AM EST) Iron, Plasma 38(L) 50 - 170 ug/dL 12/19/2024 12:46 PM EST [facility] Transferrin, Plasma 184(L) 200 - 360 mg/dL 12/19/2024 12:46 PM EST [facility] Total Iron Binding Capacity, Plasma 230(L) 240 - 450 ug/mL 12/19/2024 12:46 PM EST [facility] Transferrin Saturation 17 14 - 50 % 12/19/2024 12:46 PM EST [facility] Blood Venous blood specimen / Unknown Venipuncture / Unknown 12/19/2024 8:54 AM EST 12/19/2024 9:32 AM EST us Leroy Aponte MD LAB BLOOD ORDERABLES Final Resul t Performing Organization Address City/[facility]/ZIP Co de Phone Number [facility] [address] [place] [address], [place] [address] * Colonoscopy (12/18/2024 11:24 AM EST) Anatomical [...] Félix Muñiz CRNA CRNA [place], Jolynn Endo Housing Quality Standard Inspector Ritu Espinoza RN Endo Nurse Liu East MD Anesthesiologist Prieto Dillon MD Proceduralist Mirella Deleon Endo Housing Quality Standard Inspector Ceasar Lofton RN Endo Nurse Preprocedure A [...] of bowel preparation was evaluated using the Hamilton Bowel Preparation Scale with scores of: right [...] Role Luis Herrera MD Fellow Félix Muñiz, [place]ADILL[employer] FRONT DESK SUPERVISOR Fatou Waggoner Endo Housing Quality Standard Inspector Ritu Espinoza, RN Endo Nurse Liu East MD Anesthesiologist Prieto Dillon MD Proceduralist Mirella Deleon Endo Housing Quality Standard Inspector Ceasar Lofton RN Endo Nurse Preprocedure A [...] Plasma 8.1(H) <=0.3 mg/dL 12/18/2024 5:27 AM [facility] Alkaline Phosphatase, Plasma 111 40 - 115 U/L 12/18/2024 5:27 AM [facility] Total Bilirubin, Plasma 15.9(H) 0.2 - 1.1 mg/dL 12/18/2024 5:27 AM [facility] Albumin, Plasma 2.8(L) 3.5 - 5.2 g/dL 12/18/2024 5:27 AM [facility] Total Protein 5.9(L) 6.3 - 7.9 g/dL 12/18/2024 5:27 AM [facility] Comment: Icteric specimen. Result may be affected, interpret result in the context of the patient's condition and other laboratory results. ALT, Plasma 35 10 - 50 U/L 12/18/2024 5:27 AM [facility] AST, Plasma 76(H) 10 - 50 U/L 12/18/2024 5:27 AM EST [facility] Blood Venous blood specimen / Unknown Venipuncture / Unknown 12/18/2024 4:47 AM EST 12/18/2024 4:56 AM EST us Leroy Aponte MD LAB BLOOD ORDERABLES Final Resul t [facility] [address] [place] [address] * (ABNORMAL) Basic Metabolic Panel, Plasma (12/18/2024 4:47 AM EST) Glucose, Plasma 85 74 - 99 mg/dL 12/18/2024 5:27 AM EST [facility] BUN, Plasma 17 7 - 21 mg/dL 12/18/2024 5:27 AM EST [facility] Creatinine, Plasma 0.81 0.70 - 1.20 mg/dL 12/18/2024 5:27 AM EST [facility] Comment: Icteric specimen. Result may be falsely decreased. Interpret result in the context of the patient's condition and other laboratory results. BUN/Creatinine Ratio 21 12/18/2024 5:27 AM EST [facility] Sodium, Plasma 132(L) 136 - 145 mmol/L 12/18/2024 5:27 AM EST [facility] Potassium, Plasma 4.6 3.6 - 4.9 mmol/L 12/18/2024 5:27 AM EST [facility] Chloride, Plasma 104 97 - 107 mmol/L 12/18/2024 5:27 AM EST [facility] CO2, Plasma 20(L) 22 - 29 mmol/L 12/18/2024 5:27 AM EST [facility] Anion Gap 8 6 - 16 mmol/L 12/18/2024 5:27 AM EST [facility] Total Calcium, Plasma 8.4(L) 8.9 - 10.2 mg/dL 12/18/2024 5:27 AM EST [facility] eGFRcr 110.8 mL/min/1.7 3m*2 12/18/2024 5:27 AM EST [facility] Comment:Reported eGFRcr in m L/min/1.73m2 is based the CKD-EPI 2020 equation that does not use a race coefficient. Blood Venous blood specimen / Unknown Venipuncture / Unknown 12/18/2024 4:47 AM EST 12/18/2024 4:56 AM EST us Leroy Aponte MD LAB BLOOD ORDERABLES Final Resul t Performing Organization Address City/[facility] Co de Phone Number [facility] [address] [place] [address] * ECG Adult (12/17/2024 8:49 PM EST) EKG DIAGNOSIS CLASS Abnormal MUSE ECG Ventricular Rate 66 BPM MUSE ECG Atrial Rate 66 BPM MUSE ECG WI Interval 178 ms MUSE ECG QRSD Interval 88 ms MUSE ECG QT Interval 474 ms MUSE ECG QTC Interval 496 ms MUSE ECG P [place] 45 degrees MUSE ECG R [place] 29 degrees MUSE ECG T Wave [place] 19 degrees MUSE ECG Diagnosis Normal sinus rhythm MUSE ECG Diagnosis QTcB >= 480 msec MUSE ECG Diagnosis Abnormal ECG MUSE ECG Diagnosis MUSE ECG Diagnosis Confirmed by Jeff Worthington ([id number]) on 12/18/2024 10:06:13 AM MUSE ECG 12/17/2024 8:49 PM EST 12/18/2024 10:06 AM EST us Leroy Aponte MD ECG ORDERABLES Final Result Performing Organization Address City/[facility] Co de Phone Number MUSE ECG from Last 3 Months Insurance [facility] [employer] MEDICAID [facility] MEDICAID Advance Directives * Full Code (Latest [...] updated to appropriate status: Yes Care Teams 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
--- OUTSIDE RECORDS SUMMARY | 2025-02-09 07:33 | XMS_ITS | Encounter Summary ---
Author Organization [facility] Address [address] [place] [address] Care Team Providers Care Maintenance Instructor Name Role Phone Velasquez Param Augie HORTON Primary Care Provider [phone] Encounter Details Date Type Department Care Team [...] or relatives? Twice a week 01/02/2025 Attends [employer] Services Not on file 01/02 Do you belong to any clubs o r organizations such as pentecostal groups, unions, fraternal or athletic groups, or [...] housing, medical care, and heating? Hard 01/02/2025 [facility] - Occupational [...] any time in the past 12 m [facility], were you homeless or living in a fdc (including now)? No 01/02/2025 [facility] Utilities Answer Date Recorded In the [...] drink first t edgardo in the morning (EYE-MEAT PUMPER) to steady your nerves or to get [...] someone who was sick? No / Unsure 01/20/2025 6:30 AM Augie Alexander Do you have any of the following new or worsening symptoms? None of these 01/20/2025 6:30 AM Augie Alexander * Travel Screening Question Answer Date of Assessment Author Have you traveled internationally or domestically in the last month? No 01/20/2025 6:30 AM EST Augie Carrera documented as of this encounter Mental Status * Communicable Disease Screening Question Answer Entry Date Author Have you been in contact with someone who was sick? No / Unsure 01/20/2025 6:30 AM EST Carmen Carrera Do you have any of the following new or worsening symptoms? None of these 01/20/2025 6:30 AM EST Carmen Carrera * Travel Screening Question Answer Entry Date Author Have you traveled internationally or domestically in the last month? No 01/20/2025 6:30 AM EST Augie Carrera documented in this encounter Plan of Treatment Upcoming Encounters Date Type Department Care Team (Late st Contact Info) Description 02/17/2025 7:00 AM EST Clinical Support [facility] [address] [place] [address] 02/17/2025 8:40 AM EST Office Visit [facility] [address] [place] [address] Ozmjmfgsfv-Wvabf-C urgery-Paul 03/06/2025 11:10 AM EST Appointment [facility] [address] [place] [address] Natalya Valentine MD [address] [place] [address] documented as of this encounter Visit Diagnoses [...] documented as of this encounter Care Teams Maintenance Instructor Relationship Specialty Start Date End Date Param Eng DO [address] [place] [address] PCP - General 12/22/24 documented as of this encounter
--- OUTSIDE RECORDS SUMMARY | 2025-02-09 07:34 | XMS_ITS | Encounter Summary ---
Author Organization Healthcare Address [address] [place] [id number] Care Team Providers Care Lumber Racker Name Role Phone Param Eng DO Primary Care Provider [phone] Encounter Details Date Type Department Care Team (Late st Contact Info) Description 01/15/2025 Orders Only [facility] [address] [facility] [address] [place] [address] [facility] - CLINICAL NUTRITION [address] [place] [address] Social History Tobacco Use Types Packs/Day Years [...] or relatives? Twice a week 01/02/2025 Attends [employer] Services Not on file 01/02 Do you belong to any clubs o r organizations such as holiness groups, unions, fraternal or athletic groups, or [...] housing, medical care, and heating? Hard 01/02/2025 [facility] - Occupational [...] in a residential (including now)? No 01/02/2025 [facility] Utilities Answer Date Recorded In the [...] drink first t edgardo in the morning (EYE-MOLD CLEANER) to steady your nerves or to get [...] Description 02/17/2025 7:00 AM EST Clinical Support [facility] [address] [place] [address] 02/17/2025 8:40 AM EST Office Visit [facility] [address] [place] [address] Zadspcwwuu-Hdqyq-B urgery-Paul 03/06/2025 11:10 AM EST Appointment [facility] [address] [place] [address] Natalya Valentine MD [address] [place] [address] documented as of this encounter [...] documented as of this encounter Care Teams Lumber Racker Relationship Specialty Start Date End Date Param Eng DO [address] [place] [address] [place] [address] PCP - General 12/22/24 documented as of this encounter
--- OUTSIDE RECORDS SUMMARY | 2025-02-09 07:34 | XMS_ITS | Encounter Summary ---
Author Organization [facility] Address [address] [place] [address] Care Team Providers Care Insurance Claims Supervisor Name Role Phone Velasquez Param Augie HORTON Primary Care Provider [phone] Encounter Details Date Type Department Care Team [...] r organizations such as lutheran groups, unions, fraternal or athletic groups, or [...] Hard 01/02/2025 [facility] - Occupational [...] in a detention (including now)? No 01/02/2025 [facility] Utilities Answer Date Recorded In [...] drink first t edgardo in the morning (EYE-BRAND ANALYST) to steady your nerves or to [...] Description 02/17/2025 7:00 AM EST Clinical Support [facility] [address] [place] [address] 02/17/2025 8:40 AM EST Office Visit [facility]plant [place] [address] [place] [address] Nfpalzflns-Oweru-Z urgery-Paul 03/06/2025 11:10 AM EST Appointment [facility] [address] [place] [address] Natalya Valentine MD [address] [place] [address] documented as of this encounter Visit Diagnoses [...] documented as of this encounter Care Teams Insurance Claims Supervisor Relationship Specialty Start Date End Date Param Eng DO [address] [place] [address] PCP - General 12/22/24 documented as of this encounter
--- OUTSIDE RECORDS SUMMARY | 2025-02-09 07:34 | XMS_ITS | Encounter Summary ---
Author Organization [facility] Address [address] [place] [address] Care Team Providers Care Laser Print Operator Name Role Phone Velasquez Param Augie HORTON Primary Care Provider [phone] Encounter Details Date Type Department Care Team [...] any clubs o r organizations such as mormonism groups, unions, fraternal or athletic groups, or [...] any time in the past 12 m [facility], were you homeless or living in a half-way (including now)? No 01/02/2025 [facility] Utilities Answer Date Recorded In [...] drink first t edgardo in the morning (EYE-TUMBLE TAILSTOCK TURRET LATHE OPERATOR) to steady your nerves or to [...] Description 02/17/2025 7:00 AM EST Clinical Support [facility] [address] [place] [address] 02/17/2025 8:40 AM EST Office Visit [facility] Transplant [place] [address] [place] [address] Mxsvslgyly-Fddks-D urgery-Paul 03/06/2025 11:10 AM EST Appointment [facility] [address] [place] [address] Natalya Valentine MD [address] [place] [address] documented as of this encounter Visit Diagnoses [...] documented as of this encounter Care Teams Laser Print Operator Relationship Specialty Start Date End Date Param Eng DO [address] [place] [address] PCP - General 12/22/24 documented as of this encounter
[2025-02-09 07:55] LABS: Hematocrit 39.3 % (42.0-52.0); Hemoglobin 12.6 g/dL (14.1-18.0); Immature Granulocytes % 0.3 %; Mean Corpuscular HGB Conc 32.1 g/dL (31.8-35.4); Mean Corpuscular Hemoglobin 31.3 pg (27.0-31.2); Mean Corpuscular Volume 97.8 fl (80-94); Nucleated Red Blood Cells % 0 %; Platelet Count 180 K/mm3 (142-424); Red Blood Count 4.02 M/mm3 (4.60-6.20); Red Cell Distribution Width-SD 62.5 fL; White Blood Count 6.4 K/mm3 (4.8-10.8)
[2025-02-09 11:13] LABS: Albumin Level 3.9 g/dl (3.5-5.0); Chloride 108 mmol/L (98-107); Potassium 4.5 mmoL/L (3.5-5.1); Sodium 142 mmol/L (136-145)
[2025-02-09 11:16] LABS: Alanine Aminotransferase 21 U/L (12-78); Albumin/Globulin Ratio 1.6 (1.1-1.8); Alkaline Phosphatase 68 U/L (38-126); Anion Gap 11.5 mEq/L (5-15); Aspartate Amino Transferase 22 U/L (17-59); Bilirubin,Total 1.4 mg/dl (0.2-1.3); Blood Urea Nitrogen 34 mg/dl (9-20); Calcium 9.8 mg/dl (8.4-10.2); Carbon Dioxide 27 mmol/L (22.0-30.0); Creatinine,Serum 1.00 mg/dl (0.66-1.25); Estimated Glomerular Filt Rate 80 ml/min (>60); GFR (African American) 97 ML/MIN (>60); Globulin 2.5 g/dL (1.3-3.2); Glucose 84 mg/dl (74-100); Magnesium 1.8 mg/dl (1.6-2.3); Total Protein,Serum 6.4 g/dl (6.3-8.2)
[2025-02-09 11:20] LABS: Gamma Glutamyl Transpeptidase 53 U/L (15-73)
[2025-02-11 07:15] LABS: Tacrolimus (FK506), Blood 7.5 ng/mL (5.0-20.0)
== END 2025-02-09 23:59 | disposition home or self-care (01) ==
LOC: LAB 07:25
PROVIDERS: PCP Internal Medicine; Visit Provider Nurse Practitioner Acute Care
DX: D84.821 Immunodeficiency due to drugs (principal); Z94.4 Liver transplant status; Z79.60 Long term (current) use of unspecified immunomodulators and immunosuppressants
CPT/HCPCS: 36415; 80053; 80197; 82977; 83735; 85025